=== PATIENT | male | born 1955 | race Caucasian/White ===

== ENCOUNTER 2023-07-31 11:16 | Emergency (ER) | payer MEDICARE, SELFPAY ==
[2023-07-31 11:20] VITALS: BP 152/70; PULSE 82; TEMP 36.6; O2SAT 96
--- NOTE | 2023-07-31 11:30 | PC.NURSE ---
pt denies injury, c/o right hip pain and reports is currently getting treated for this by PCP and Orthopedics. no redness, bruising or swelling to sight. Pain increases with movement and ambulation.
--- NOTE | 2023-07-31 11:40 | CT_ITS ---
The [address] [address] Patient Name: ERIN CALVERT MRN: [id number] date: 1955 Sex: M Assigned Patient Location: ER Current Patient Location: ED.MAIN Accession/Order Number: [id number] Exam Date: 07/31/2023 12:07 Report Date: 07/31/2023 13:11 At the request of: TRACI ELIZALDE Procedure: CT pelvis wo con EXAM: CT pelvis wo con HISTORY: Right hip pain. COMPARISON: None. TECHNIQUE: Routine CT pelvis without intravenous contrast. Dose reduction techniques were achieved by using automated exposure control and/or adjustment of mA and/or kV according to patient size and/or use of iterative reconstruction technique. FINDINGS: Nonobstructive bowel gas pattern with a moderate amount of stool within the colon. The appendix is not identified. The small bowel is unremarkable. There is no free air, free fluid or inflammatory reaction. Severe atheromatous calcifications distal abdominal aorta and the iliac, common femoral, femoral and profunda femoral arteries. The IVC is unremarkable. There are no pathologically enlarged lymph nodes. The unopacified urinary bladder is distended and otherwise unremarkable. The patient should urinate. There is mild to moderate enlargement of the prostate gland containing numerous coarse calcifications. There is a small amount of fat extending into the right inguinal canal. There is no muscular derangement. The bony alignment is anatomic. There is no fracture. There is no osseous destruction or periostitis. There are degenerative changes at both hip joints, moderate on the left and moderate on the right. There is no avascular necrosis. There is a lytic lesion suggesting a large Schmorl node along the superior endplate of the L5 vertebral body to the left of midline measuring 0.9 x 1.5 x 2.1 cm in longitudinal, transverse and AP dimensions. There is exuberant sclerosis surrounding this suggesting that this is chronic. A small Schmorl node is also seen along the left lateral aspect of the inferior endplate of the L4 vertebral body. There are mild discogenic degenerative changes at L4-5 and mild facet arthritis at L4-5 on the left. There is vacuum disc phenomenon at L4-5. There is a small focus of mineralization within the L5-S1 disc space. The sacrum, bilateral sacral joints and symphysis are unremarkable CT/CT pelvis wo con IMPRESSION: There is no acute process. The bowel gas pattern is nonobstructive with a moderate amount of stool within the colon. There is no free air, free fluid or inflammatory reaction within the peritoneal cavity. Severe atherosclerotic calcifications distal abdominal aorta and the iliac, common femoral, femoral and profunda femoral arteries bilaterally. There are no pathologically enlarged lymph nodes. The unopacified urinary bladder is distended and otherwise unremarkable. The patient should urinate. There is mild to moderate enlargement of the prostate gland. Correlate with the clinical examination and PSA level. There is no acute osseous abnormality. There is no fracture. There are degenerative changes at both hip joints, moderate on the left and moderate on the right. There is a lytic lesion suggesting a large Schmorl node along the superior endplate of the L5 vertebral body to the left of midline measuring 0.9 x 1.5 x 2.1 cm in longitudinal, transverse and AP dimensions. There is exuberant sclerosis surrounding this suggesting that this is chronic. A small Schmorl node is also seen along the inferior endplate of the L4 vertebral body. There are mild discogenic degenerative changes at L4-5. There is vacuum disc phenomenon at L4-5. Electronically authenticated by: DIMAS GUTIÉRREZ Date: 07/31/2023 13:11
--- NOTE | 2023-07-31 11:40 | ED.GENADUL1 ---
HPI HPI - General Adult General Chief complaint: Extremity Injury, Lower Stated complaint: rocky pain Time Seen by Provider: 07/31/23 11:22 Source: patient Mode of arrival: Wheelchair Limitations: no limitations History of Present Illness HPI narrative: The patient coming to the ER with a right hip pain that been going on at least for a month, he just finished prednisone pack at home that did not help, the patient denies any trauma or fall mentioned that the right hip pain is being evaluated by orthopedic and is going to get an MRI as outpatient. No other complaints Related Data Home Medications ?Medication ?Instructions ?Recorded ?Confirmed albuterol sulfate 90 mcg/actuation 2 puff inhalation Q4H PRN 07/31/23 07/31/23 aerosol inhaler shortness of breath or wheezing atorvastatin 40 mg tablet 40 mg PO DAILY 07/31/23 07/31/23 cilostazol 100 mg tablet 100 mg PO BID 07/31/23 07/31/23 hydrochlorothiazide 50 mg tablet 50 mg PO QAM 07/31/23 07/31/23 hydrocodone 7.5 mg-acetaminophen 1 tab PO Q6H PRN pain 07/31/23 07/31/23 325 mg tablet levothyroxine 175 mcg tablet 175 mcg PO QAM 07/31/23 07/31/23 (Synthroid) losartan 100 mg tablet 100 mg PO DAILY 07/31/23 07/31/23 terazosin 1 mg capsule 1 mg PO QPM 07/31/23 07/31/23 Previous Rx's ?Medication ?Instructions ?Recorded meloxicam 15 mg tablet 15 mg PO DAILY PRN pain #10 tabs 07/31/23 Allergies Allergy/AdvReac Type Severity Reaction Status Date / Time Sulfa (Sulfonamide Allergy Mild Rash Verified 07/31/23 11:20 Antibiotics) Opioid HPI Opioid Management Most Recent Opioid Data: No Data to Display Review of Systems ROS Status of ROS 10 or more systems reviewed and unremarkable except as noted in history and below Exam Narrative Exam Narrative: Nurses notes and vital signs reviewed and patient is not hypoxic. General: Well-appearing and in no apparent distress. Skin: Warm, dry, no pallor noted. No rash. Head: Normocephalic, atraumatic. Neck: Supple, non-tender. Eye: Pupils are equal, round and EOMI. No scleral icterus. Ears, Nose, Mouth, and Throat: TM are clear, no nasal mucosal hypertrophy. Oral mucosa is moist, no posterior oropharynx erythema, uvula is mid-line Cardiovascular: Regular Rate and Rhythm without murmur, gallop or rub. Respiratory: No accessory muscle use or respiratory distress. Lungs are clear to auscultation, no wheezing, rales or rhonchi Chest Wall: no tenderness Back: No midline thoracic or lumbar vertebral tenderness. No CVA tenderness Musculoskeletal: normal ROM, no calf or popliteal tenderness, no lower extremity edema/swelling, the patient have pain at the hip posteriorly GI: Abdomen is soft, non-distended. Normal bowel sounds. No masses appreciated. No tenderness to palpation. No rebound, guarding, or rigidity noted. Neurological: A&O x4. No cranial nerve dysfunction observed. No truncal ataxia. Moves all extremities. Sensation intact. Psychiatric: Cooperative and interactive. Normal mood and affect. Constitutional Vital Signs, click to edit/add: Last Vital Signs Temp 97.8 F 07/31/23 11:20 Pulse 64 07/31/23 12:51 Resp 16 07/31/23 12:51 BP 126/72 07/31/23 12:51 Pulse Ox 97 07/31/23 12:51 O2 Del Method Room Air 07/31/23 11:20 Course Vital Signs Vital signs: Vital Signs Temperature 97.8 F 07/31/23 11:20 Pulse Rate 82 07/31/23 11:20 Respiratory Rate 16 07/31/23 11:20 Blood Pressure 152/70 H 07/31/23 11:20 Pulse Oximetry 96 07/31/23 11:20 Oxygen Delivery Method Room Air 07/31/23 11:20 Temperature 97.8 F 07/31/23 11:20 Pulse Rate 64 07/31/23 12:51 Respiratory Rate 16 07/31/23 12:51 Blood Pressure 126/72 07/31/23 12:51 Pulse Oximetry 97 07/31/23 12:51 Oxygen Delivery Method Room Air 07/31/23 11:20 Medical Decision Making MDM Narrative Medical decision making narrative: The patient CT of the pelvis showed no acute significant pathology but it was noted that he have some lytic lesions in the lumbar spine that he was notified of that he need to follow-up with his primary care doctor for prostate check as outpatient The patient understands Patient was provided with Toradol in the ER discharged home with Doreen The patient is not taking any anticoagulant he mentioned that he was supposed to be on antiplatelet but he did not take it because he have allergy to it The patient is to follow up with primary care physician in next 2-3 days or to return to the emergency department should any of the signs or symptoms worsen or new symptoms develop. The patient agrees with the following Diagnosis and Treatment plan and the patient will be discharged home. Discharge Plan Discharge Stand Alone Forms: Portal Instructions Chief Complaint: Extremity Injury, Lower Clinical Impression: Acute hip pain Qualifiers: Laterality: right Qualified Code(s): M25.551 - Pain in right hip Patient Disposition: Home, Self-Care Time of Disposition Decision: 13:35 Condition: Good Mode of Transportation: Private Vehicle Prescriptions / Home Meds: New meloxicam 15 mg tablet 15 mg PO DAILY PRN (Reason: pain ) Qty: 10 0RF No Action cilostazol 100 mg tablet 100 mg PO BID atorvastatin 40 mg tablet 40 mg PO DAILY albuterol sulfate 90 mcg/actuation HFA aerosol inhaler 2 puff INHALATION Q4H PRN (Reason: shortness of breath or wheezing) hydrochlorothiazide 50 mg tablet 50 mg PO QAM hydrocodone-acetaminophen 7.5-325 mg tablet 1 tab PO Q6H PRN (Reason: pain) levothyroxine [Synthroid] 175 mcg tablet 175 mcg PO QAM losartan 100 mg tablet 100 mg PO DAILY terazosin 1 mg capsule 1 mg PO QPM Print Language: [place] Instructions: Hip Pain (ED) Referrals: Dick Boss MD [Primary Care Provider] - 1 week Discharge Date/Time: 07/31/23 13:50
[2023-07-31] MEDS: KETOROLAC TROMETHAMINE 30 MG/ML VIAL IM (11:49)
[2023-07-31] MEDS: OXYCODONE HCL/ACETAMINOPHEN 5MG/325MG 1 TAB PO (11:49)
[2023-07-31] MEDS: ORPHENADRINE 60 MG/ 2 ML VIAL IM (11:49)
[2023-07-31 12:00] VITALS: PULSE 72; O2SAT 97
[2023-07-31 12:51] VITALS: BP 126/72; PULSE 64; O2SAT 97
== END 2023-07-31 13:50 | disposition home or self-care (01) ==
PROVIDERS: Emergency Provider Emergency Medicine; PCP Family Medicine
DX: M25.551 Pain in right hip (principal)
CPT/HCPCS: 72192; 96372; 99284

== ENCOUNTER 2024-12-31 14:24 | Outpatient (OUT) | payer MEDICARE, SELFPAY ==
--- OUTSIDE RECORDS SUMMARY | 2024-12-31 14:48 | XMS_ITS | CCD ---
Author Organization [facility] Inform ion Partnership [facility] Care Team Providers Care Bunch Maker Name Role Phone Molly Ray Attending Unavailable Basia Vega Primary Care UnavailVika Collins Admitting Unavailable Vika Mcfarlane Attending Unavailable Shalom Driver Referring Unavailable Basia Vega Primary Care Unavailable MAXWELL WYNN Attending Unavailable MAXWELL WYNN Consulting Unavailable BASIA VEGA Primary Care Unavailable MAXWELL WYNN Admitting Unavailable MORGANBASIA SCANLON Admitting Unavailable BASIA VEGA Attending Unavailable BASIA VEGA Consulting Unavailable BASIA VEGA Primary Care Unavailable Basia Vega Primary Care Provider [phone] Rod Gonzalez Attending Provider Nakia Montez DO Unavailable Dick Miranda MD Primary Care Provider KASSIDY VILLASENOR Referring Unavailable DICK MIRANDA Primary Care Unavailable ODETTE BAPTISTE Admitting Unavailable ODETTE BAPTISTE Attending Unavailable ODETTE BAPTISTE Attending Unavailable ODETTE BAPTISTE Referring Unavailable DICK MIRANDA Primary Care Unavailable Basia Vega Primary Care Provider [phone] Dick Miranda Primary Care Provider [phone] HUGH CRAIG Attending Unavailable HUGH CRAIG Admitting Unavailable DICK MIRANDA Primary Care Unavailable Lo Hancock MD Unavailable [phone] Gerald Abdi MD Unavailable Olegario Moreira MD Unavailable Lo Hancock MD Unavailable Lenny LEE.SACK CLEANING HAND, Michelle Unavailable [phone] Aviva THEODORE, Noemy Unavailable Rickie RIOS, Steffany Unavailable Unavailable Trinidad LAGUNAS, Gerald Unavailable Joseph LAGUNAS, Olegario Unavailable Renee THEODORE, Crystal Unavailable [phone] Joseph LAGUNAS, Olegario Unavailable Dick Miranda MD Primary Care Provider [phone] [facility] WOOL SHEARER.SACK CLEANING HAND, Joey Romero Unavailable Grady THEODORE, Anna Aguiar Unavailable Unavail able Nakia Montez DO Unavailable Karyn LAGUNAS, Dick Primary Care Provider Nakia Montez DO Primary Care Provider Karyn LAGUNAS, Dick Primary Care Provider Joseph LAGUNAS, Olegario Unavailable Nakia Montez DO Unavailable Trinidad LAGUNAS, Angulo Unavailable Dick Miranda MD Unavailable OLEGARIO MOREIRA Attending Unavailable NAKIA MONTEZ G Referring Unavailable NADERER, DICK Primary Care Unavailable ESTEFANY LANG Attending Unavailable KASSIDY VILLASENOR Referring Unavailable NADERER, DICK Primary Care Unavailable OLEGARIO MOREIRA Attending Unavailable NADERER, DICK Referring Unavailable NADERER, DICK Primary Care Unavailable BINA GRIFFIN Attending Unavailable NADERER, DICK Referring Unavailable NADERER, DICK Primary Care Unavailable BINA GRIFFIN Attending Unavailable NADERER, DICK Referring Unavailable NADERER, DICK Primary Care Unavailable Karyn LAGUNAS, Dick Primary Care Provider Renee THEODORE, Crystal Unavailable Dick Miranda MD Primary Care Provider GERALD ABDI Attending Unavailable KASSIDY VILLASENOR Referring Unavailable NADERER, DICK Primary Care Unavailable GERALD ABDI Attending Unavailable TRINIDAD, ANGULO N Referring Unavailable NADERER, DICK Primary Care Unavailable TRINIDAD, ANGULO N Referring Unavailable NADERER, DICK Primary Care Unavailable TRINIDAD, ANGULO N Attending Unavailable NADERER, DICK Referring Unavailable NADERER, DICK Primary Care Unavailable WUDEL JR, SAVANAH Referring Unavailable NADERER, DICK Primary Care Unavailable WUDEL JR, SAVANAH Referring Unavailable NADERER, DICK Primary Care Unavailable WUDEL JR, SAVNAAH Referring Unavailable NADERER, DICK Primary Care Unavailable WUDEL JR, SAVANAH Referring Unavailable NADERER, DICK Primary Care Unavailable WUDEL JR, SAVANAH Referring Unavailable NADERER, DICK Primary Care Unavailable NADERER, DICK Referring Unavailable NADERER, DICK Primary Care Unavailable GARY OWEN Attending Unavailable AFRIDI, OLEGARIO Moreno Referring Unavailable NADERER, DICK Primary Care Unavailable AFRIDI, OLEGARIO Moreno Attending Unavailable AFRIDI, OLEGARIO G Referring Unavailable NADERER, DICK Primary Care Unavailable NADERER, DICK Primary Care Unavailable EVELYN PAZ Attending Unavailable NEHA GARCIA Attending Unavailable NADERER, DICK Referring Unavailable NADERER, DICK Primary Care Unavailable Basia Vega MD Primary Care Provider Romario MATERIAL EXPEDITER-C, Melinda Lopez Attending Provider Dick Miranda MD Primary Care Provider Don LAGUNAS, Wendy Erickson Emergency Provider [phone] Clarence Stevens DO Admit Provider Clarence Stevens DO Attending Provider Clarence Stevens DO Other Provider Enoc Barron MD Attending Provider Enoc Barron MD Other Provider Clarence Stevens Attending Unavailable Clarence Stevens Admitting Unavailable Enoc Barron Consulting Unavailable Naderer, Dick Primary Care Unavailable Lo Hancock MD, V Attending Provider Dick Miranda MD Attending Provider NADALEX, DICK Attending Unavailable ROBERT KING Attending Unavailable ROBERT KING Attending Unavailable SUSAN CLAUDIO Attending Unavailable ABHYANKAR, LO Referring Unavailable ZION, ARLEY Referring Unavailable VERÓNICA DUMONT Attending Unavailable SAPORITA, SERGIO L Referring Unavailable BRINK, ANMOL Attending Unavailable SAPORITA, SERGIO L Referring Unavailable KELBLEY, NILDA Attending Unavailable SAPORITA, SERGIO L Referring Unavailable SONIA, ARNULFO Attending Unavailable SAPORITA, SERGIO L Referring Unavailable SONIA, ARNULFO Attending Unavailable SAPORITA, SERGIO L Referring Unavailable SONIA, ARNULFO Attending Unavailable SAPORITA, SERGIO L Referring Unavailable NADERER, DICK Attending Unavailable KELBLEY, NILDA Attending Unavailable SAPORITA, SERGIO L Referring Unavailable BRINK, ANMOL Attending Unavailable SAPORITA, SERGIO L Referring Unavailable MARANDAJOS Referring Unavailable NADERER, DICK Attending Unavailable SKYLER, ERIN Dietz Attending Unavailable NADERER, DICK Attending Unavailable KINGROBERT Attending Unavailable ABHYANKAR, LO Referring Unavailable NADERER, DICK A Primary Care Unavailable ABHYANKAR, LO Referring Unavailable NADERER, DICK A Primary Care Unavailable RHEA GODDARD Attending Unavailabl e ABHYANKAR, LO Referring Unavailable NADERER, DICK A Primary Care Unavailable BUNDRIDJOEY JAVIER Attending Unavailabl e NADERER, DICK A Primary Care Unavailable NADERER, DICK A Primary Care Unavailable BUNDRIDJOEY JAVIER Attending Unavailabl e BUNDJOEY DWYER Referring Unavailabl e NADERER, DICK A Primary Care Unavailable DE, JACK Attending Unavailable NADERER, DICK A Primary Care Unavailable ABHYANKAR, LO Referring Unavailable NADERER, DICK A Primary Care Unavailable ABHYANKAR, LO Attending Unavailable ABHYANKAR, LO Referring Unavailable NADERER, DICK A Primary Care Unavailable DE, JACK Attending Unavailable NADERER, DICK A Primary Care Unavailable DE, JACK Attending Unavailable DE, JACK Referring Unavailable NADERER, DICK A Primary Care Unavailable DE, JACK Referring Unavailable NADERER, DICK A Primary Care Unavailable DE, JACK Attending Unavailable DE, JACK Referring Unavailable NADERER, DICK A Primary Care Unavailable ABHYANKAR, LO Referring Unavailable NADERER, DICK A Primary Care Unavailable ABHYANKAR, LO Attending Unavailable ABHYANKAR, LO Referring Unavailable NADERER, DICK A Primary Care Unavailable BUNDRIDJOEY JAVIER Attending Unavailabl e ABHYANKAR, LO Referring Unavailable NADERER, DICK A Primary Care Unavailable ABHYANKAR, LO Referring Unavailable NADERER, DICK A Primary Care Unavailable MICHELLE MEJIA Attending Unavailable ABHYANKAR, LO Referring Unavailable NADERER, DICK A Primary Care Unavailable ABHYANKAR, LO Referring Unavailable NADERER, DICK A Primary Care Unavailable ABHYANKAR, LO Attending Unavailable ABHYANKAR, LO Referring Unavailable NADERER, DICK A Primary Care Unavailable DE, JCAK Attending Unavailable NADERER, DICK A Primary Care Unavailable BETTYPRESTON KEE Attending Unavailable NADERER, DICK A Primary Care Unavailable NADERER, DICK A Primary Care Unavailable ABHYANKAR, LO Referring Unavailable NADERER, DICK A Primary Care Unavailable ABHYANKAR, LO Referring Unavailable NADERER, DICK A Primary Care Unavailable SAVANAH OREILLY Attending Unavailable ABHYANKAR, LO Referring Unavailable NADERER, DICK A Primary Care Unavailable NADERER, DICK A Primary Care Unavailable ABHYANKAR, LO Attending Unavailable ABHYANKAR, LO Referring Unavailable NADERER, DICK A Primary Care Unavailable DE, JACK Attending Unavailable ABHYANKAR, LO Referring Unavailable NADERER, DICK A Primary Care Unavailable DE, JACK Attending Unavailable DE, JACK Referring Unavailable NADERER, DICK A Primary Care Unavailable DE, JACK Attending Unavailable NADERER, DICK A Primary Care Unavailable DE, JACK Attending Unavailable ABHYANKAR, LO Referring Unavailable NADERER, DICK A Primary Care Unavailable ABHYANKAR, LO Referring Unavailable NADERER, DICK A Primary Care Unavailable DE, JACK Attending Unavailable NADERER, DICK A Primary Care Unavailable NADERER, DICK A Primary Care Unavailable ABHYANKAR, LO Attending Unavailable ABHYANKAR, LO Referring Unavailable NADERER, DICK A Primary Care Unavailable ABHYANKAR, LO Attending Unavailable ABHYANKAR, LO Referring Unavailable NADERER, DICK A Primary Care Unavailable ABHYANKAR, LO Referring Unavailable NADERER, DICK A Primary Care Unavailable ABHYANKAR, LO Referring Unavailable NADERER, DICK A Primary Care Unavailable ABHYANKAR, LO Referring Unavailable NADERER, DICK A Primary Care Unavailable MICHELLE MEJIA Attending Unavailable ABHYANKAR, LO Referring Unavailable NADERER, DICK A Primary Care Unavailable JOEY SCOTT Attending Unavailabl e ABHYANKAR, LO Referring Unavailable NADERER, DICK A Primary Care Unavailable ABHYANKAR, LO Referring Unavailable NADERER, DICK A Primary Care Unavailable DE, JACK Attending Unavailable DE, JACK Referring Unavailable NADERER, DICK A Primary Care Unavailable DE, JACK Attending Unavailable DE, JACK Referring Unavailable NADERER, DICK A Primary Care Unavailable ABHYANKAR, LO Referring Unavailable NADERER, DICK A Primary Care Unavailable NADERER, DICK A Primary Care Unavailable MICHELLE MEJIA Referring Unavailable NADERER, DICK A Primary Care Unavailable DE, JACK Attending Unavailable DE, JACK Referring Unavailable NADERER, DICK A Primary Care Unavailable DE, JACK Attending Unavailable ABHYANKAR, LO Referring Unavailable NADERER, DICK A Primary Care Unavailable ABHYANKAR, LO Referring Unavailable NADERER, DICK A Primary Care Unavailable DE, JACK Attending Unavailable DE, JACK Referring Unavailable NADERER, DICK A Primary Care Unavailable ABHYANKAR, LO Referring Unavailable NADERER, DICK A Primary Care Unavailable PRESTON HERNÁNDEZ Attending Unavailable NADERER, DICK A Primary Care Unavailable Unavailable Unavailable Unavailable Allergies Allergy ClassificationReported Allergen(s)Allergy TypeDate of OnsetReaction(s) Facility (1 source)Sulfonamides (Antibiotic)Drug allergy (disorder)[id number] ([facility] sources)Sulfonamides (Antibiotic)Drug Liscotm32-14-4536UosnqfrSaint [facility] (8 sources)Sulfonamides (Antibiotic); Translations: [SULFA (SULFONAMIDE ANTIBIOTICS)]Propensity to adverse reactions to drug (disorder)10-15-2011 unknown; childhood allergyPro[facility]ica Rep[facility] (20 sources)tiotropiumDrug Cbjeavo83-44-3466Lnwyqrefe of [facility] Work Phone: (20 sources)gabapentin; Translations: [GABAPENTIN]Drug Afczcmy75-78-8478[facility] (2 sources)tiotropiumDrug Gtxnrma85-09-9512ZewolbxThe [facility] Medications Current Medications MedicationDrug Class(es)DatesSig (Normalized)Sig (Original)acetaminophen 325 mg / HYDROcodone bitartrate 7.5 mg oral tablet (20 sources)Opioid AgonistStart: 11-86-3846msqp 1 tablet by mouth every six hours as neededHydrocodone-Acetaminophen 7.5-325 mg tablet Active 1 TAB PO Twice daily as needed for pain October 27, 2024 12:00am FreeTextSig: (Schedule II Drug) TAKE 1 TABLET BY MOUTH EVERY 6 HOURS NEEDED Oral; Note: Source Status: Taking; Refills: 0; Qty: 30 Unspecified; Provider: MORGAN FLOR Complies with drug therapyStart: 09-19-2024 End: 16-43-7676cxem 1 tablet by mouth four times daily as needed for pain HYDROcodone-acetaminophen ([place]) 7.5-325 MG tablet Indications: DDD (degenerative disc disease), cervical Take 1 tablet by mouth 4 (four) times a day as needed for severe pain for up to 23 days 90 tablet 09/19/2024 10/17/2024 ActiveStart: 08-08-2024 End: 34-89-3640hbtv 1 tablet by mouth four times daily as needed for pain HYDROcodone-acetaminophen ([place]) 7.5-325 MG tablet Indications: DDD (degenerative disc disease), cervical Take 1 tablet by mouth 4 (four) times a day as needed for severe pain for up to 23 days 90 tablet 08/08/2024 08/31/2024 ActiveStart: 06-26-2024 End: 47-51-1253kzta 1 tablet by mouth four times daily as needed for pain HYDROcodone-acetaminophen ([place]) 7.5-325 MG tablet Indications: DDD (degenerative disc disease), cervical Take 1 tablet by mouth 4 (four) times a day as needed for severe pain for up to 23 days 90 tablet 06/26/2024 07/19/2024 ActiveStart: 05-14-2024 End: 46-05-1826qqpg 1 tablet by mouth four times daily as needed for pain HYDROcodone-acetaminophen ([place]) 7.5-325 MG tablet Indications: DDD (degenerative disc disease), cervical Take 1 tablet by mouth 4 (four) times a day as needed for severe pain for up to 23 days 90 tablet 05/14/2024 06/06/2024 ActiveStart: 04-02-2024 End: 89-85-6180tsrv 1 tablet by mouth four times daily as needed for pain HYDROcodone-acetaminophen ([place]) 7.5-325 MG tablet Indications: DDD (degenerative disc disease), cervical Take 1 tablet by mouth 4 (four) times a day as needed for severe pain for up to 23 days 90 tablet 04/02/2024 04/25/2024 ActiveStart: 02-20-2024 End: 19-34-9482wegc 1 tablet by mouth four times daily as needed for pain HYDROcodone-acetaminophen ([place]) 7.5-325 MG tablet Indications: DDD (degenerative disc disease), cervical Take 1 tablet by mouth 4 (four) times a day as needed for severe pain for up to 23 days 90 tablet 02/20/2024 03/14/2024 ActiveStart: 12-19-2023 End: 69-09-1937wqzq 1 tablet by mouth four times daily as needed for pain HYDROcodone-acetaminophen ([place]) 7.5-325 MG tablet Indications: DDD (degenerative disc disease), cervical Take 1 tablet by mouth 4 (four) times a day as needed for severe pain for up to 23 days 90 tablet 01/17/2024 02/09/2024 ActiveStart: 11-18-2023 End: 94-17-5827bwpd 1 tablet by mouth four times daily as needed for pain HYDROcodone-acetaminophen ([place]) 7.5-325 MG tablet Indications: DDD (degenerative disc disease), cervical Take 1 tablet by mouth 4 (four) times a day as needed for severe pain for up to 23 days 90 tablet 11/18/2023 12/11/2023 ActiveStart: 10-28-2023 End: 72-36-7434oyfj 1 tablet by mouth four times daily as needed for pain HYDROcodone-acetaminophen ([place]) 7.5-325 MG tablet Indications: DDD (degenerative disc disease), cervical Take 1 tablet by mouth 4 (four) times a day as needed for severe pain for up to 7 days 28 tablet 10/28/2023 11/04/2023 ActiveStart: 11-02-2019 End: 87-57-3715utgg 1 tablet by mouth every six hours as needed for pain Hydrocodone-Acetaminophen 7.5-325 mg tablet Discontinued 1 TAB PO Q6H as needed for Pain November 02, 2019 12:00am November 08, 2019 8:03amtake 1 tablet by mouth every six hours as needed for painHYDROcodone-acetaminophen (XODOL) 7.5- 300 mg per tablet Take 1 tablet by mouth every 6 (six) hours as needed for pain. Active End: 60-87-9546ivwt 1 tablet by mouth every six hours as neededhydrocodone- acetaminophen ES (VICODIN ES) 7.5-750 mg per tablet Take 1 tablet by mouth every 6 hours as needed. Takes one half to one daily, may take total of one and one half pills IF needed in one day 10/26/2023 Discontinuedtake 1 tablet by mouth every six hours as needed for painHYDROcodone-acetaminophen ([place]) 5-325 mg per tablet Take 1 tablet by mouth every 6 (six) hours asneeded for pain. Active [id number] 200 actuat albuterol 0.09 mg/actuat metered dose inhaler (20 sources)beta2-Adrenergic AgonistStart: 11-21-2024 End: 29-48-6081sggd 1 puff(s) by inhalation every six hours as needed for wheezingAlbuterol Sulfate 90 mcg/actuation HFA aerosol inhaler Active 2 PUFF INHALATION Every 6 hours as needed for shortness of breath or wheezing 8.5 December 03, 2024 2:10pm Complies with drug therapyStart: 64-35-2851nfmh 2 puff(s) by inhalation every six hours as neededalbuterol HFA (PROVENTIL HFA, VENTOLIN HFA) 90 mcg/actuation inhaler Inhale 2 Puffs as instructed every 6 hours as needed. 10/20/2023 ActiveStart: 06-09-1125oswr 2 puff(s) by inhalation every six hoursalbuterol HFA 90 mcg/act inhaler Inhale 2 puffs every 6 (six) hours if needed 10/20/2023 ActiveStart: 70-44-5826imva 2 puff(s) by inhalation every six hours as needed for wheezingalbuterol (PROVENTIL HFA;VENTOLIN HFA) 90 mcg/actuation inhaler Indications: Chronic obstructive pulmonary disease, unspecified COPD type ([facility]) Inhale 2 puffs every 6 (six) hours as needed for wheezing. 18 g 11 10/20/2023 ActiveamLODIPine 10 mg oral tablet (20 sources)Dihydropyridine Calcium Channel BlockerStart: 21-81-4391cwqy 1 tablet by mouth once dailyAmlodipine 10 mg tablet Active 10 MG PO Daily October 27, 2024 12:00am Complies with drug therapyascorbic acid 500 mg oral tablet (20 sources)Vitamin CStart: 65-15-3109gpoo 1 tablet by mouth once dailyAscorbic Acid (Vitamin C) (Vitamin C) 500 mg Tablet Active 500 MG PO Daily November 02, 2019 12:00am Complies with drug therapytake 1 tablet by mouth in the morning ascorbic acid (Vitamin C) 500 MG tablet Take 500 mg by mouth in the morning. Activeaspirin 81 mg oral tablet (20 sources)Platelet Aggregation Inhibitor, Nonsteroidal Anti-inflammatory Drug Start: 55-64-4680majh 1 tablet by mouth once dailyAspirin 81 mg tablet Active 81 MG PO Daily October 27, 2024 12:00am Complies with drug therapyStart: 86-11-5436lnrt 1 tablet by mouth in the morningaspirin 81 mg Indications: Essential hypertension , Bilateral carotid artery stenosis , Occlusive disease, arterial TAKE 1 TABLET (81 MG TOTAL) BY MOUTH IN THE MORNING 90 tablet 1 04/16/2024 ActiveStart: 60-35-0372tjdx 1 tablet by mouth in the morningaspirin 81 mg Indications: Essential hypertension , Bilateral carotid artery stenosis , Occlusive disease, arterial TAKE 1 TABLET (81 MG TOTAL) BY MOUTH IN THE MORNING 90 tablet 1 10/25/2023 ActiveStart: 09-30-2023 End: 34-00-1672xsuo 1 tablet by mouth in the morningaspirin 81 mg Indications: Essential hypertension , Bilateral carotid artery stenosis , Occlusive disease, arterial TAKE 1 TABLET (81 MG TOTAL) BY MOUTH IN THE MORNING 90 tablet 1 10/25/2023 Activeatorvastatin 40 mg oral tablet (20 sources)HMG-CoA Reductase InhibitorStart: 03-36-5565kwuq 1 tablet by mouth once dailyAtorvastatin 40 mg tablet Active 40 MG PO Daily November 02, 2019 12:00am Complies with drug therapybetamethasone 0.5 mg/ml topical cream (2 sources)CorticosteroidStart: 09-20-2022 End: 84-73-4108huzsdagekoyzb dipropionate 0.05 % cream Indications: Prurigo nodularis Apply to affected area on hand twice a day prn itching 45 g 11 09/20/2022 04/20/2023 Discontinuedcetirizine hydrochloride 10 mg oral tablet (20 sources)Histamine-1 Receptor Antagonisttake 1 tablet by mouth in the morning cetirizine (ZyrTEC) 10 mg tablet Take 1 tablet (10 mg total) by mouth in the morning. Active End: 50-62-8187yrcn 1 capsule by mouth once dailyCetirizine 10 mg cap Take 10 mg by mouth once daily. 07/20/2024 Discontinued (Discontinued by Patient) cholecalciferol 0.025 mg oral tablet (20 sources)Vitamin DStart: 23-45-8569asuohovipdcjmip (VITAMIN D3) 1,000 unit tab tablet Take 1,000 Units by mouth. 10/06/2023 ActiveStart: 16-40-3039ddoy 1 tablet by mouth in the morningcholecalciferol (Vitamin D-3) 25 MCG (1000 UT) tablet Take 500 Units by mouth in the morning. 10/06/2023 ActiveStart: 10-06-2023 End: 41-49-9614umfa 1 tablet by mouth once dailycholecalciferol (VITAMIN D3) 1,000 unit tab tablet Take 1,000 Units by mouth once daily. Discontinued (Discontinued by another Health Care Provider)Start: 03-21-2020 End: 34-96-1423eqsv 1 tablet by mouth once dailyCholecalciferol (Vitamin D3) (Vitamin D3) 25 mcg (1,000 unit) Tablet,Chewable Discontinued 1000 UNIT PO Daily March 21, 2020 1:00am October 27, 2024 6:15pmcilostazol 100 mg oral tablet (1 source)Phosphodiesterase 3 InhibitorStart: 68-05-6905nmxj 1 tablet by mouth in the morning, then take 1 tablet by mouth at bedtimecilostazoL (PLETAL) 100 mg tablet Indications: Right internal carotid occlusion , Occlusive disease, arterial Take 1 tablet (100 mg total) by mouth in the morning and 1 tablet (100 mg total) before bedtime. 90 tablet 5 06/27/2023 Activeclopidogrel 75 mg oral tablet (20 sources)P2Y12 Platelet InhibitorStart: 10-27-2024 End: 81-88-3655rdic 1 tablet by mouth once dailyStart: 17-34-8920ucfn 1 tablet by mouth once daily in the morningclopidogreL (PLAVIX) 75 mg tablet Indications: Essential hypertension , Bilateral carotid artery stenosis , Occlusive disease, arterial TAKE 1 TABLET BY MOUTH EVERY DAY IN THE MORNING 90 tablet 1 10/10/2024 ActiveStart: 03-06-2024 End: 82-21-7732itjd 1 tablet by mouth once daily in the morningclopidogreL (PLAVIX) 75 mg tablet Indications: Essential hypertension , Bilateral carotid artery stenosis , Occlusive disease, arterial TAKE 1 TABLET BY MOUTH EVERY DAY IN THE MORNING 90 tablet 1 03/06/2024 10/10/2024 DiscontinuedStart: 10-25-2023 take 1 tablet by mouth once daily in the morningclopidogreL (PLAVIX) 75 mg tablet Indications: Essential hypertension , Bilateral carotid artery stenosis , Occlusive disease, arterial TAKE 1 TABLET BY MOUTH EVERY DAY IN THE MORNING 90 tablet 1 10/25/2023 ActiveStart: 09-30-2023 End: 79-70-3254srqd 1 tablet by mouth once daily in the morningclopidogreL (PLAVIX) 75 mg tablet Indications: Essential hypertension , Bilateral carotid artery stenosis , Occlusive disease, arterial TAKE 1 TABLET BY MOUTH EVERY DAY IN THE MORNING 90 tablet 1 10/25/2023 ActiveCYANOCOBALAMIN, VITAMIN B-12, (VITAMIN B-12 ORAL) (19 sources)CYANOCOBALAMIN, VITAMIN B-12, (VITAMIN B-12 ORAL) Take by mouth. ActiveCYANOCOBALAMIN, VITAMIN B-12, (VITAMIN B-12 ORAL) Take by mouth. 0 Active diazePAM 5 mg oral tablet (20 sources)BenzodiazepineStart: 01-94-1607kwoz 1 tablet by mouth three times daily as neededDiazepam 5 mg tablet Active 5 MG PO Three times daily as needed November 21, 2024 12:00am Complies with drug therapyStart: 10-12-2023 End: 03-52-3208izza 1 tablet by mouth three times daily as needed for anxiety diazePAM (Valium) 5 MG tablet Indications: KIKO (generalized anxiety disorder) Take 1 tablet (5 mg) by mouth 3 (three) times a day as needed for anxiety 90 tablet 06/05/2024 ActiveStart: 11-02-2019 End: 94-90-0764kvxg 1 tablet by mouth every six hours as needed for muscle spasmsDiazepam 5 mg Tablet Discontinued 5 MG PO Q6H as needed for Spasms November 02, 2019 12:00am November 08, 2019 8:03amdocusate sodium 100 mg oral capsule (5 sources)Start: 98-74-1136xqvy 1 capsule by mouth twice daily as needed for constipationDocusate Sodium 100 mg Capsule Active 100 MG PO Twice daily as needed for Constipation 30 10 2024 12:00am Complies with drug therapytake 1 tablet by mouth twice dailyDocusate Sodium 100 mg tab Take 100 mg by mouth two times a day. Activedoxepin hydrochloride 75 mg oral capsule (8 sources)Tricyclic AntidepressantStart: 31-04-4019prxh 1 capsule by mouth once daily at bedtimeDoxepin 75 mg capsule Active 75 MG PO Daily at bedtime November 21, 2024 12:00am Complies with drug therapyStart: 10-97-8245razy 1 capsule by mouth at bedtimedoxepin (SINEquan) 75 MG capsule Indications: Primary insomnia Take 1 capsule (75 mg) by mouth at bedtime 30 capsule 3 10/17/2024 Activefexofenadine hydrochloride 180 mg oral tablet (20 sources)Histamine-1 Receptor AntagonistStart: 37-29-2776zdzk 1 tablet by mouth once dailyFexofenadine 180 mg tablet Active 180 MG PO Daily November 21, 2024 12:00am Complies with drug therapyfexofenadine HCl (ITZEL ORAL) Take 180 mg by mouth. Activegabapentin 100 mg oral capsule (20 sources)Anti-epileptic AgentStart: 12-23-2023 End: 07-57-0212frje 2 capsules by mouth once daily at bedtimegabapentin (NEURONTIN) 100 mg capsule Take 2 capsules by mouth daily at bedtime for 60 days. 30 capsule 1 12/23/2023 12/28/2023 DiscontinuedStart: 11-29-2023 End: 64-09-2484whny 1 capsule by mouth once daily at bedtime, then take 1 capsule by mouth once dailygabapentin (NEURONTIN) 100 mg capsule Take 1 capsule (100 mg total) by mouth once daily at bedtime.Pt is only taking one tablet a day. 12/26/2023 ActiveStart: 03-21-2020 End: 06-47-2260exhh 1 capsule by mouth three times dailyGabapentin 300 mg capsule Discontinued 300 MG PO Three times daily March 21, 2020 1:00am 2024 6:16pmStart: 30-49-6548bkmfyrwpsc (NEURONTIN) 100 mg capsule Indications: Tension headache Week 1: one capsule po at night; Week 2: one capsule bid; Week 3: one capsule three time daily, and continue. 90 capsule 6 07/20/2018 Activeglucosamine 500 mg oral tablet (20 sources)take 1 tablet by mouth once dailyGlucosamine HCl 500 mg tab Take 1 tablet by mouth once daily. ActiveGlucosamine 750 MG tablet Take by mouth Daily ActivehydroCHLOROthiazide 25 mg / losartan potassium 100 mg oral tablet (3 sources)Thiazide Diuretic, Angiotensin 2 Receptor Blockertake 1 tablet by mouth once in the morninglosartan-hydroCHLOROthiazide (HYZAAR) 100-25 mg per tablet Take 1 tablet by mouth in the morning. Losartan 100mg hydrochlorithiazide 50mg takes daily . Active End: 88-78-8009rnis 1 tablet by mouth in the morninglosartan-hydroCHLOROthiazide (Hyzaar) 100-25 MG tablet Take 1 tablet by mouth in the morning. 0 04/20/2023 Discontinuedibuprofen 600 mg oral tablet (3 sources)Nonsteroidal Anti-inflammatory DrugStart: 45-47-9966Wadqkhlsl 600 mg tablet Active 600 MG PO every 6 to 8 hours as needed for pain October 292:00am Complies with drug therapyketoconazole 10 mg/ml medicated shampoo (20 sources)Azole AntifungalStart: 98-12-4601Qlkllcuizjei 1 % shampoo Active 1 APPLIC TOPICAL Twice a Week November 21, 2024 12:00am Complieswith drug therapyStart: 09-64-5573Pitugazoppsy (Nizoral) 1 % shampoo Indications: Seborrheic dermatitis Apply 1 Application topically2 (two) times a week 200 mL 3 04/19/2024 ActiveKetoconazole (Nizoral) 1 % shampoo (8 sources)Start: 21-91-9124Ijofbuegbyzk (Nizoral) 1 % shampoo Indications: Seborrheic dermatitis Apply 1 Application topically2 (two) times a week 200 mL 3 04/19/2024 Activekrill oil 500 mg oral capsule (20 sources)Start: 83-38-1297zkpd 1 capsule by mouth once dailyKrill Oil 500 mg capsule Active 500 MG PO Daily November 21, 2024 12:00am Complies with drug therapytake 1 capsule by mouth once dailykrill oil 500 mg cap Take 1 capsule by mouth once daily. Activeloratadine 10 mg oral tablet (3 sources) End: 11-36-1225pybt 1 tablet by mouth once dailyloratadine (CLARITIN) 10 mg tablet Take 10 mg by mouth daily. Activemeloxicam 7.5 mg oral tablet (20 sources)Nonsteroidal Anti-inflammatory DrugStart: 10-10-2024 End: 89-52-1618zmdi 1 tablet by mouth once daily at bedtimeMeloxicam 7.5 mg tablet Active 7.5 MG PO Daily at bedtime October 27, 2024 12:00am Complies with drug therapyStart: 10-12-2023 End: 05-42-8430waot 1 tablet by mouth once dailymeloxicam (MOBIC) 7.5 mg tablet Take 1 tablet by mouth once daily. 10/12/2023 12/23/2023 DiscontinuedMELOXICAM ORAL Take by mouth. ActivemetFORMIN hydrochloride 850 mg oral tablet (20 sources)BiguanideStart: 11-53-0417mtim 1 tablet by mouth once dailyMetformin 850 mg tablet Active 850 MG PO Daily October 27, 2024 12:00am Complies with drug therapyStart: 12-20-2022 End: 50-21-5760nskl 1 tablet by mouth once daily at breakfastmetFORMIN (GLUCOPHAGE) 850 mg tablet Take 850 mg by mouth daily with breakfast. 10/02/2023 Hdmyeh49/70 release 24 hr methylphenidate hydrochloride 10 mg extended release oral capsule (20 sources)Central Nervous System StimulantStart: 63-70-6316Hmzmbvidjadyoki Hcl 10 mg capsule, ER biphasic 30-70 Active 10 MG PO Every morning November 21, 2024 12:00am Complies with drug therapyStart: 12-28-2023 End: 51-93-3435yqwg 1 tablet by mouth twice dailymethylphenidate (RITALIN) 10 mg tablet Indications: Malaise and fatigue , Attention deficit hyperactivity disorder (ADHD), combined type Take 1 tablet by mouth two times a day for 30 days. 60 tablet 07/09/2024 ActiveStart: 10-21-2014 End: 60-59-2084xpipwsylentvpcx (RITALIN) 10 mg tablet Take 1 tablet as needed by oral route. 10/21/2014 10/26/2023iscontinuedStart: 05-17-2014 End: 64-20-4882swxa 1 tablet by mouth in the morningmethylphenidate (RITALIN) 5 mg tablet Take 1 tablet(s) in AM and at 1 PM by oral route. 05/17/2014 0 10/26/2023 Discontinuedtake 1 capsule by mouth once daily in the morning methylphenidate CD (Metadate CD) 10 MG daily capsule Take 10 mg by mouth in the morning. Do not crush or chew.. ActivemethylPREDNISolone (16 sources)CorticosteroidStart: 11-06-2024 End: 92-02-1640viylllYQKHPTFlbchd (MEDROL, ZACH,) 4 mg Dose-Pack Take as instructed per package. 21 tablet 11/06/2024 11/12/2024 ActiveStart: 04-23-2024 End: 20-69-4041wmvohtLIOXSUAwwwxr acetate (DEPO-Medrol) injection 40 mgStart: 04-23-2024 End: 74-20-284948 mg, Intra-articular, Once PRN Procedure, Starting on Tue04/23/24 at 1510, For 1 doseStart: 03-08-2024 End: 87-65-4266iflzlyHYSTRRHjpjep acetate (DEPO-Medrol) injection 40 mgStart: 03-08-2024 End: 56-97-303575 mg, Intra-articular, Once PRN Procedure, Starting on [place] 03/08/24 at 1235, For 1 dosemetroNIDAZOLE 7.5 mg/ml topical lotion (2 sources)Nitroimidazole AntimicrobialStart: 02-24-2023 End: 23-24-2412ljmxxCGEOMXOC (Metrolotion) 0.75 % lotion lotion Indications: Other rosacea Apply thin layer to face, once daily, 30 day supply 59 mL 11 02/24/2023 04/20/2023 Discontinuedminocycline 50 mg oral capsule (2 sources)Tetracycline-class DrugStart: 12-20-2022 End: 08-49-4411lrwa 1 capsule by mouth twice dailyminocycline 50 MG capsule Indications: Other rosacea Take 1 capsule by mouth, twice daily, 30 days 60 capsule 11 12/20/2022 04/20/2023 DiscontinuedMultiple Vitamin (Multi-Vitamin) tablet (20 sources)take 1 tablet by mouth in the morningMultiple Vitamin (Multi- Vitamin) tablet Take 1 tablet by mouth in the morning. Activetake 1 tablet by mouth in the morningMultiple Vitamin (Multi-Vitamin) tablet Take 1 tablet by mouth in the morning. 0 IpuabtCmauubhj-Ctq-Xo-Lycopen-Lutein (Men 50 Plus Multivitamin) 300-600-300 mcg Tablet (1 source)Start: 82-79-9748tezu 50-300 tablets by mouth once daily Ylyqppuv-Uwa-Yl-Lycopen-Lutein (Men 50 Plus Multivitamin) 300-600-300 mcg Tablet Active 1 TAB PO Daily November 02, 2019 1:54pmmultivit-minerals/ferrous fum (MULTI VITAMIN ORAL) (16 sources)multivit-minerals/ferrous fum (MULTI VITAMIN ORAL) Take by mouth. d3 100u and e 180 daily Activemultivitamin tablet (20 sources)take 1 tablet by mouth once dailymultivitamin tablet Take 1 tablet by mouth once daily. Activetake 1 tablet by mouth once dailymultivitamin tablet Take 1 tablet by mouth once daily. 0 IsmqtrLk-Clj-Jxdpv-N1-Xtmblov-Pbgjty (Men 50 Plus Multivitamin) 300-600-300 mcg Tablet (4 sources)Start: 44-92-4206wwnv 50-300 tablets by mouth once dailyStart: 44-27-3294bqmy 50-300 tablets by mouth once cdskvEw-Utt-Fvqby-E6-Ajttvah-Tnrpta (Men 50 Plus Multivitamin) 300-600-300 mcg Tablet Active 1 TAB PO Daily November 02, 2019 12:00am Complies with drug hhpujzs93 hr nicotine 0.875 mg/hr transdermal system (20 sources)Cholinergic Nicotinic AgonistStart: 10-03-2023 End: 11-00-3878kddbsrpn (Nicoderm, Step 1) 21 MG/24HR patch Indications: Cigarette smoker Place 1 patch over 24 hours on the skin 1 (one) time each day at the same time 30 patch 1 10/03/2023 10/17/2024 DiscontinuedStart: 10-03-2023 End: 97-87-9533qsqpc 1 dose transdermal route every hournicotine (NICODERM) 21 mg/24 hr Apply 1 Patch as directed. 10/03/2023 03/23/2024 Discontinued (Disco ntinued by another Health Care Provider)Nicotine Polacrilex (NICORETTE) [address] 4 mg between cheek and gum as needed. ActiveOmega 0-Gwe-Xef-Fish Oil (Fish Oil) 1,000 mg (120 mg-180 mg) Capsule (5 sources)Start: 00-77-6083enrz 1 capsule by mouth once dailyOmega 6-Qxz-Ssp-Fish Oil (Fish Oil) 1,000 mg (120 mg-180 mg) Capsule Active 1 CAP PO Daily November 02, 2019 1:54pm Stopped 11/01/28Start: 11-02-2019 End: 93-13-5154gxyy 1 capsule by mouth once dailyOmega 1-Pku-Lcl-Fish Oil (Fish Oil) 1,000 mg (120 mg-180 mg) Capsule Discontinued 1 CAP PO Daily November 02, 2019 12:00am March 21, 2020 11:09am Stopped 11/01/28omeprazole 20 mg delayed release oral tablet (20 sources)Proton Pump InhibitorStart: 62-00-2543gnlo 1 tablet by mouth once dailyOmeprazole 20 mg tablet,delayed release (DR/EC) Active 20 MG PO Daily November 21, 2024 12:00am Complies with drug therapytake 1 tablet by mouth before mealtimeomeprazole OTC (PriLOSEC OTC) 20 MG EC tablet Take 20 mg by mouth in the morning. Take before meals. Do not crush, chew, or split.. Active ondansetron 8 mg oral tablet (20 sources)Serotonin-3 Receptor AntagonistStart: 11-14-2023 End: 45-66-3303mocc 1 tablet by mouth every eight hours as neededondansetron (Zofran) 8 MG tablet Take 8 mg by mouth every 8 (eight) hours if needed 11/14/2023 10/17/2024 DiscontinuedpredniSONE 10 mg oral tablet (20 sources)Start: 11-09-2024 End: 38-63-7115yzde 2 tablets by mouth once dailypredniSONE (DELTASONE) 10 mg tablet Indications: Radiation-induced pulmonary fibrosis (HCC) , Malignant neoplasm of unspecified part of unspecified bronchus or lung (HCC) , Neuralgia Take 2 tablets by mouth once daily. 60 tablet 11/09/2024 12:40 PM EDT 11/09/2024 12/09/2024 ActiveStart: 59-34-8669vtyj 2 tablets by mouth once dailyPrednisone 20 mg Tablet Active 40 MG PO Daily 8 October 29, 2024 12:00am Complies with drug therapyStart: 10-42-4599xwbg 4 tablets by mouth once, then take 1 tablet by mouthPrednisone Active 1 dose pk PO per package directions November 08, 2019 7:04am take 4 tabs for3 days then take 3 tabs for 3 days then take 2 tabs for 3 days then take 1 tab for 3 daysStart: 11-08-2019 End: 02-78-9557Mralkjsnfg 10 mg tablets,dose pack Discontinued 1 dose pk PO per package directions March 21, 2020 1:00am October 27, 2024 6:17pm take 4 tabs for 3 days then take 3 tabs for 3 days then take 2 tabs for 3 days then take 1 tab for 3 daysStart: 11-02-2019 End: 50-75-6744Otmnwzfivz 10 mg tablet Discontinued 10 MG PO As Directed November 02, 2019 12:00am November 08, 2019 8:03amStart: 88-54-7374atxw 1 tablet by mouth once daily, then take 1 tablet by mouth twice daily, then take 1 tablet by mouth once dailypredniSONE (DELTASONE) 20 mg tablet TAKE 1 TAB BY MOUTH 3X DAILY FOR 3 DAYS, 1 TAB TWICE DAILY FOR 3 DAYS, 1 TAB DAILY FOR 3 DAYS 10/13/2019 Activepregabalin 75 mg oral capsule (20 sources)Start: 11-21-2024 End: 26-60-2547fdqk 1 capsule by mouth twice dailyPregabalin (Lyrica) 75 mg capsule Active 75 MG PO Twice daily 60 November 21, 2024 2:18pm Complies with drug therapyStart: 01-17-2024 End: 47-86-4540depd 1 capsule by mouth in the morningpregabalin (Lyrica) 75 MG capsule Indications: Chemotherapy-induced neuropathy (HCC) Take 1 capsule(75 mg) by mouth in the morning and 1 capsule (75 mg) before bedtime. 60 capsule 2 07/11/2024 10/17/2024 DiscontinuedStart: 01-17-2024 End: 36-64-3607jldg 1 capsule by mouth in the morningpregabalin (Lyrica) 75 MG capsule Indications: Chemotherapy-induced neuropathy (CMS/HCC) Take 1 capsule (75 mg) by mouth in the morning and 1 capsule (75 mg) before bedtime. 60 capsule 2 01/17/2024 Activeprochlorperazine 10 mg oral tablet (20 sources)PhenothiazineStart: 11-14-2023 End: 68-24-4394qdqw 1 tablet by mouth every six hours as neededprochlorperazine (Compazine) 10 MG tablet Take 10 mg by mouth every 6 (six) hours if needed 11/14/2023 10/17/2024 Discontinuedpropranolol hydrochloride 20 mg oral tablet (20 sources)beta-Adrenergic BlockerStart: 55-57-4392lthy 1 tablet by mouth once daily as neededPropranolol 20 mg tablet Active 20 MG PO Daily as needed November 21, 2024 12:00am Complies withdrug therapyStart: 25-12-2824kbod 1 tablet by mouth once daily as needed for anxietypropranolol (INDERAL) 20 mg tablet TAKE 1 TABLET BY MOUTH NEEDED FOR ANXIETY ATTACKS ONCE A DAY 1 Activetake 1 tablet by mouth three times dailypropranoloL (INDERAL) 20 mg tablet Take 1 tablet (20 mg total) by mouth 3 (three) times a day. Active sildenafil 100 mg oral tablet (20 sources)Phosphodiesterase 5 InhibitorStart: 32-77-3679Xkzefmxlan 100 mg tablet Active 100 MG PO Daily as needed November 21, 2024 12:00am administer 30 minutes to 4 hours before activity Complies with drug therapyStart: 12-15-2022 End: 59-97-3838wlvu 1 tablet by mouth once daily as neededsildenafil (Viagra) 100 MG tablet Indications: Erectile dysfunction, unspecified erectile dysfunctio n type Take 1 tablet (100 mg) by mouth Daily as needed for erectile dysfunction. 10 tablet 10 12/15/2022 Activeterazosin 1 mg oral capsule (20 sources)alpha-Adrenergic BlockerStart: 33-43-4365saih 1 capsule by mouth once daily at bedtimeTerazosin 1 mg capsule Active 1 MG PO Daily at bedtime October 27, 2024 12:00am Complies with mnkzmfzmsog66 actuat tiotropium 0.0025 mg/actuat inhalation spray (13 sources)AnticholinergicStart: 42-35-7560ystu 2 puff(s) by inhalation in the morningtiotropium bromide (SPIRIVA RESPIMAT) 2.5 mcg/actuation mist Indications: Chronic obstructive pulmonary disease, unspecified COPD type ([facility]) Inhale 2 puffs in the morning. 4 g 12 10/20/2023 ActivetiZANidine 4 mg oral tablet (3 sources)Central alpha-2 Adrenergic Agonisttake 6 mg by mouth every six hours as neededtiZANidine (ZANAFLEX) 4 mg tablet Take 1.5 tablets (6 mg total) by mouth every 6 (six) hours as needed for muscle spasms. Active End: 02-49-9127gsct 6 mg by mouth every six hours as neededtiZANidine (Zanaflex) 4 MG tablet Take 6 mg by mouth every 6 (six) hours if needed. 0 04/20/2023 Dis continuedtraZODone hydrochloride 100 mg oral tablet (20 sources)Serotonin Reuptake InhibitorStart: 12-23-2023 End: 32-01-7868fyvk 1 tablet by mouth once daily at bedtimetraZODone (DESYREL) 100 mg tablet Take 1 tablet by mouth daily at bedtime. 02/23/2024 ActiveStart: 10-03-2023 End: 00-71-2035kfhl 1 tablet by mouth at bedtimetraZODone (Desyrel) 50 MG tablet Indications: Primary insomnia Take 1 tablet (50 mg) by mouth at bedtime 30 tablet 5 10/28/2023 Activetriamcinolone acetonide 1 mg/ml topical lotion (2 sources)CorticosteroidStart: 06-14-2022 End: 42-04-3431vkuwlqwfttrja (Kenalog) 0.1 % lotion APPLY DAILY TO SKIN TO AFFECTED AREA TWICE A DAY FOR 2 WEEKS 04/20/2023 Discontinued valsartan 160 mg oral tablet (1 source)Angiotensin 2 Receptor Blockervalsartan (DIOVAN) 160 mg tablet Diovan CAPS Refills: 0 Active Activevarenicline 1 mg oral tablet (2 sources)Partial Cholinergic Nicotinic AgonistStart: 12-15-2022 End: 55-47-8785wubm 1 tablet by mouth in the morningVarenicline Tartrate, Starter, (Chantix Starting Month ) 0.5 MG X 11 & 1 MG X 42 tablet therapy pack Indications: Cigarette nicotine dependence without complication Take 1 tablet by mouth in the morning. Take as directed.. 1 each 0 12/15/2022 04/20/2023 Discontinued Completed/Discontinued Medications MedicationDrug Class(es)DatesSig (Normalized)Sig (Original)acetaminophen 500 mg oral tablet (5 sources)Start: 10-29-2024 End: 65-10-0606rasp 2 tablets by mouth three times dailyAcetaminophen 500 mg Tablet Discontinued 1000 MG PO Three times daily 0 October 29, 2024 12:00am Oc tob2024 9:21amtake 2 capsules by mouth every six hours as needed Acetaminophen 500 mg cap Take 1,000 mg by mouth every 6 hours as needed for pain. Activeacyclovir 400 mg oral tablet (4 sources)Herpesvirus Nucleoside Analog DNA Polymerase Inhibitor, Herpes Simplex Virus Nucleoside Analog DNA Polymerase Inhibitor, Herpes Zoster Virus Nucleoside Analog DNA Polymerase InhibitorStart: 11-21-2024 End: 31-31-5172hjjm 1 tablet by mouth twice dailyAcyclovir 400 mg tablet Discontinued 400 MG PO Twice daily November 21, 2024 12:00am December 10, 2024 9:22amStart: 23-24-9565mjuj 1 tablet by mouth twice dailyacyclovir (ZOVIRAX) 400 mg tablet Indications: Radiation-induced pulmonary fibrosis (HCC) , Malignant neoplasm of unspecified part of unspecified bronchus or lung (HCC) , Neuralgia Take 1 tablet by mouth two times a day. 60 tablet 2 11/09/2024 12:40 PM EDT 11/09/2024 ActiveCARBOplatin 650 mg in NaCl 0.9% 340 mL (PARAPLATIN) (2 sources)Start: 12-28-2023 End: 08-55-5267967 mg (rounded from 659 mg, Target AUC = 5), INTRAVENOUS, Administer over 30 Minutes, ONCE, 1 dose, On Tue12/28/23 at 1500, EXP: 12/29/2023 1120 RT Hazardous Chemotherapy Drug: Use appropriate PPE. Antineoplastic Irritant.Start: 12-07-2023 End: 87-43-2856366 mg (rounded from 659 mg, Target AUC = 5), INTRAVENOUS, Administer over 30 Minutes, ONCE, 1 dose, On Tue12/07/23 at 1500, EXP: 12/08/2023 1120 RT Hazardous Chemotherapy Drug: Use appropriate PPE. A ntineoplastic Irritant.CARBOplatin 800 mg in NaCl 0.9% 355 mL (PARAPLATIN) (1 source)Start: 11-16-2023 End: 17-23-9092764 mg (rounded from 808.2 mg, Target AUC = 6), INTRAVENOUS, Administer over 30 Minutes, ONCE, 1 dose, On Tue11/16/23 at 1430, EXP: 11/17/2023 1015 RT Hazardous Chemotherapy Drug: Use appropriate PPE. Antineoplastic Irritant.cephalexin 500 mg oral capsule (9 sources)Cephalosporin AntibacterialStart: 11-08-2019 End: 58-63-1692iuyy 1 capsule by mouth every eight hoursCephalexin (Keflex) 500 mg capsule Discontinued 500 MG PO Q8H March 21, 2020 1:00am October 27, 2024 6:15pmcyclobenzaprine hydrochloride 10 mg oral tablet (15 sources)Muscle RelaxantStart: 09-10-2019 End: 42-45-1592xrnt 1 tablet by mouth three times daily as needed for muscle spasmsCyclobenzaprine 10 mg tablet Discontinued 10 MG PO Three times daily as needed for back spasms November 08, 2019 12:00am March 21, 2020 11:09am 1 ml dexamethasone phosphate 10 mg/ml injection (1 source)CorticosteroidStart: 12-28-2023 End: 61-81-572865 mg, INTRAVENOUS, ONCE, 1 dose, On Tue12/28/23 at 1100, Administer over 5 minutes.dexAMETHasone 10 mg in NaCl 0.9% 50 mL (DECADRON) (2 sources)Start: 12-07-2023 End: 90-52-463403 mg, INTRAVENOUS, ONCE, 1 dose, On Tue12/07/23 at 1100, Refrigerate.Start: 11-16-2023 End: 11-28-683386 mg, INTRAVENOUS, ONCE, 1 dose, On Tue11/16/23 at 1030, Refrigerate.diphenhydrAMINE (3 sources)Histamine-1 Receptor AntagonistStart: 12-28-2023 End: 98-61-920124 mg, INTRAVENOUS, ONCE, 1 dose, On Tue12/28/23 at 1100Start: 12-07-2023 End: 01-34-932969 mg, INTRAVENOUS, ONCE, 1 dose, On Tue12/07/23 at 1100Start: 11-16-2023 End: 61-12-977732 mg, INTRAVENOUS, ONCE, 1 dose, On Tue11/16/23 at 1030 DOCOSAHEXANOIC ACID/EPA (FISH OIL ORAL) (8 sources) End: 56-75-1084fmqf 1400 mg by mouth once dailyDOCOSAHEXANOIC ACID/EPA (FISH OIL ORAL) Take by mouth. Takes 1400mg once daily 10/26/2023 Discontinuedtake 1400 mg by mouth once dailyDOCOSAHEXANOIC ACID/EPA (FISH OIL ORAL) Take by mouth. Takes 1400mg once daily Activetake 1400 mg by mouth once dailyDOCOSAHEXANOIC ACID/EPA (FISH OIL ORAL) Take by mouth. Takes 1400mg once daily 0 Activeenteric contrast (will be provided with radiology test) (16 sources)Start: 12-28-2023 End: 99-62-4881vbbrxsy contrast (will be provided with radiology test) Indications: Malignant neoplasm of lung, unspecified laterality, unspecified part of lung (HCC) , Malignant neoplasm of upper lobe of left lung(HCC) For CT CHESTABD/PEL W IVCON Routine order Administer, As Directed One Time Only, via Oral, Rectal, both Oral and Rectal, Enteric Tube, Stoma or Indwelling Catheter, Enteric Contrast as designated per enteric contrast guidelines 1 Each 12/28/2023 03/23/2024 Discontinued (Discontinued by another Health Care Provider)Start: 16-07-5436uts[place]uk contrast (will be provided with radiology test) Indications: Malignant neoplasm of lung, unspecified laterality, unspecified part of lung (HCC) , Malignant neoplasm of upper lobe of left lung(HCC) For CT CHESTABD/PEL W IVCON Routine order Administer, As Directed One Time Only, via Oral, Rectal, both Oral and Rectal, Enteric Tube, Stoma or Indwelling Catheter, Enteric Contrast as designated per enteric contrast guidelines 1 Each 12/28/2023 Active2 ml famotidine 10 mg/ml injection (3 sources)Histamine-2 Receptor AntagonistStart: 12-28-2023 End: 14-76-291106 mg, INTRAVENOUS, ONCE, 1 dose, On Tue12/28/23 at 1100, REFRIGERATEStart: 12-07-2023 End: 30-42-914626 mg, INTRAVENOUS, ONCE, 1 dose, On Tue12/07/23 at 1100, REFRIGERATEStart: 11-16-2023 End: 86-14-395290 mg, INTRAVENOUS, ONCE, 1 dose, On Tue11/16/23 at 1030, REFRIGERATEfosaprepitant 150 mg injection (1 source)Start: 12-28-2023 End: 79-77-1408820 mg, INTRAVENOUS, Administer over 30 Minutes, ONCE, 1 dose, On Tue12/28/23 at 1100, Approx Total Volume: 115 mL Refrigeratefosaprepitant 150 mg in NaCl 0.9% 250 mL (EMEND) (2 sources)Start: 12-07-2023 End: 74-47-1735884 mg, INTRAVENOUS, Administer over 30 Minutes, ONCE, 1 dose, On Tue12/07/23 at 1100, Approximate Total Volume = 280 mL RefrigerateStart: 11-16-2023 End: 48-50-3800254 mg, INTRAVENOUS, Administer over 30 Minutes, ONCE, 1 dose, On Tue11/16/23 at 1030, Approximate Total Volume = 280 mL Refrigerate hydroCHLOROthiazide 50 mg oral tablet (20 sources)Thiazide DiureticStart: 08-02-2023 End: 35-82-5687bzyc 1 tablet by mouth once dailyhydroCHLOROthiazide 50 mg tablet Take 50 mg by mouth once daily. 08/02/2023 07/20/2024 Discontinued(Discontinued by another Health Care Provider)Start: 06-17-2022 End: 62-81-6775popq 1 tablet by mouth once daily in the morning hydroCHLOROthiazide (HYDRODiuril) 50 MG tablet Indications: Essential (primary) hypertension (CMS/HCC) TAKE 1 TABLET BY MOUTH EVERY DAY IN THE MORNING 90 tablet 3 09/13/2022 04/20/2023 DiscontinuedStart: 11-02-2019 End: 24-65-7801hlrs 1 tablet by mouth once dailyHydrochlorothiazide 25 mg tablet Discontinued 25 MG PO Daily November 02, 2019 12:00am October 6:16pm hydroCHLOROthiazide 25 mg / valsartan 160 mg oral tablet (10 sources)Thiazide Diuretic, Angiotensin 2 Receptor Valentina End: 03-62-2204pxmt 1 tablet by mouth once dailyValsartan-Hydrochlorothiazide (DIOVAN HCT) 160-25 mg per tablet Take 1 tablet by mouth once daily. 10/26/2023 Discontinued End: 47-34-3558rjqv 1 tablet by mouth in the morningvalsartan- hydroCHLOROthiazide (Diovan HCT) 160-25 MG tablet Take 1 tablet by mouth in the morning. 0 04/20/2023 Discontinuedindomethacin 75 mg extended release oral capsule (14 sources)Nonsteroidal Anti-inflammatory DrugStart: 08-27-2014 End: 96-86-9702uzdv 1 capsule by mouth once daily at breakfastindomethacin ER 75 mg CR capsule Take 1 capsule by mouth daily with breakfast. 14 capsule 0 08/27/2014 11/10/2023 Discontinued (Discontinued by Patient)iv contrast (will be provided with radiology test) (20 sources)Start: 08-01-2024 End: 70-65-1361tpfcfo 1 dose intravenously onceiv contrast (will be provided with radiology test) MRI Brain Inject, intravenously, once for 1 dose.No IV access, insert saline lock prior to beginning of sedation, infusion, injection of imaging exam.Discontinue saline lock post exam. If Pt. has a central line or IVAD, may access for administration according to line specific nursing protocol.Once exam is complete flush line and de-access according to line specific nursing protocol in the MR contrast administration guidelines link 1 each 08/01/2024 08/02/2024 ExpiredStart: 07-20-2024 End: 11-58-8180xjiytn 1 dose intravenously onceiv contrast (will be provided with radiology test) CT Brain WO/W - No IV access, insert saline lockprior to the sedation, infusion, injection for imaging exam. Discontinue saline lock post exam. If Pt. has a central line or IVAD, may access for administration according to line specific nursing protocol. Once exam is complete flush line and de-access according to line specific nursing protocol inthe CT contrast administration guidelines link. 1 each 07/20/2024 07/21/2024 ExpiredStart: 07-20-2024 End: 27-55-7388efeudx 1 dose intravenously onceiv contrast (will be provided with radiology test) CT Brain WO/W - No IV access, insert saline lockprior to the sedation, infusion, injection for imaging exam. Discontinue saline lock post exam. If Pt. has a central line or IVAD, may access for administration according to line specific nursing protocol. Once exam is complete flush line and de-access according to line specific nursing protocol inthe CT contrast administration guidelines link. 1 each 07/20/2024 07/21/2024 ActiveStart: 12-28-2023 End: 69-39-3698cx contrast (will be provided with radiology test) Indications: Malignant neoplasm of lung, unspecified laterality, unspecified part of lung (HCC) , Malignant neoplasm of upper lobe of left lung (HCC) CT Chest ABD/PEL- Inject, intravenously, once for 1 dose.No IV access, insert saline lock prior to the beginning of sedation, infusion, injection of imaging exam. Discontinue saline lock post exam. If Pt. has a central line or IVAD, may access for administration according to line specific nursing protocol. Once exam is complete flush line and de-access according to line specific nursing protocol in the CT contrast administration guidelines link. 1 Each 12/28/2023 03/23/2024 Discontinued (Discontinued by another Health Care Provider)Start: 81-41-3318yh contrast (will be provided with radiology test) Indications: Malignant neoplasm of lung, unspecified laterality, unspecified part of lung (HCC) , Malignant neoplasm of upper lobe of left lung (HCC) CT Chest ABD/PEL-Inject, intravenously, once for 1 dose.No IV access, insert saline lock prior to the beginning of sedation, infusion, injection of imaging exam. Discontinue saline lock post exam. If Pt. has a central line or IVAD, may access for administration according to line specific nursing protocol. Once exam is complete flush line and de-access according to line specific nursing protocol in the CT contrast administration guidelines link. 1 Each 12/28/2023 Activelevothyroxine sodium 0.175 mg oral tablet (20 sources)l-ThyroxineStart: 06-12-2018 End: 00-40-9647zwor 1 tablet by mouth once dailyLevothyroxine (Synthroid) 175 mcg tablet Discontinued 175 MCG PO Daily November 02, 2019 12:00am November 27, 2024 3:39pmlevothyroxine (SYNTHROID, LEVOTHROID) 100 MCG tablet Synthroid 100 MCG Oral Tablet Refills: 0 Active Activelosartan potassium 100 mg oral tablet (20 sources)Angiotensin 2 Receptor BlockerStart: 11-02-2019 End: 98-78-2791gbxl 1 tablet by mouth once dailyLosartan 100 mg tablet Discontinued 100 MG PO Daily November 02, 2019 12:00am October 27, 2024 6:17pm take 2 tablets by mouth once dailylosartan (COZAAR) 50 mg tablet Take 100 mg by mouth daily. Activenivolumab 360 mg in NaCl 0.9% 146 mL (OPDIVO) (3 sources)Start: 12-28-2023 End: 70-00-5884086 mg, INTRAVENOUS, Administer over 30 Minutes, ONCE, 1 dose, On Tue12/28/23 at 1130, EXP: 12/28/20231909 RT Administer with 0.2 micron filter. Protect from light if utilizing refrigerator 7 day expiration.Start: 12-07-2023 End: 95-59-6460372 mg, INTRAVENOUS, Administer over 30 Minutes, ONCE, 1 dose, On Tue12/07/23 at 1130, EXP: 12/07/2023 1910 RT Administer with 0.2 micron filter. Protect from light if utilizing refrigerator 7 day expiration.Start: 11-16-2023 End: 47-69-6380085 mg, INTRAVENOUS, Administer over 30 Minutes, ONCE, 1 dose, On Tue11/16/23 at 1100, EXP: 11/16/2023 1815 RT Administer with 0.2 micron filter. Protect from light if utilizing refrigerator 7 day expiration.nivolumab 480 mg in NaCl 0.9% 158 mL (OPDIVO) (3 sources)Start: 07-20-2024 End: 89-79-3898760 mg, INTRAVENOUS, Administer over 30 Minutes, ONCE, 1 dose, On Tue07/20/24 at 1530, Approx TotalVolume: 158 mL EXP: 07/20/2024 2330 RT Administer with 0.2 micron filter. Protect from light if utilizing refrigerator 7 day expiration.Start: 06-15-2024 End: 88-21-0736028 mg, INTRAVENOUS, Administer over 30 Minutes, ONCE, 1 dose, On Tue06/15/24 at 1500, Approx TotalVolume: 158 mL EXP: 2230 06/15/24 Administer with 0.2 micron filter. Protect from light if utilizingrefrigerator 7 day expiration.Start: 05-18-2024 End: 55-81-8282610 mg, INTRAVENOUS, Administer over 30 Minutes, ONCE, 1 dose, On Tue05/18/24 at 1400, Approx TotalVolume: 158 mL EXP: 05/18/2024 2150 RT Administer with 0.2 micron filter. Protect from light if utilizing refrigerator 7 day expiration.oxyCODONE hydrochloride 5 mg oral tablet (14 sources)Opioid AgonistStart: 10-29-2024 End: 34-28-3325bdyh 5-10 mg by mouth every six hoursOxycodone 5 mg tablet Discontinued 5 - 10 MG PO Every 6 hours 30 October 29, 2024 November 21, 2024 1:50pmStart: 03-21-2020 End: 19-63-1794lzvy 5-10 mg by mouth every six hours as needed for painOxycodone 5 mg capsule Discontinued 5 - 10 MG PO Q6H as needed for pain 60 March 21, 2020 March 21, 2020 2:16pmStart: 03-21-2020 End: 39-18-1643qfhs 5-10 mg by mouth every six hours as needed for painOxycodone 5 mg capsule Discontinued 5 - 10 MG PO Q6H as needed for pain 60 March 21, 2020 October 27, 2024 6:17pmStart: 03-21-2020 End: 09-82-4032rykr 5-10 mg by mouth every six hours as needed for painOxycodone 5 mg capsule Discontinued 5 - 10 MG PO Q6H as needed for pain 60 March 21, 2020 October 27, 2024 6:17pmStart: 64-04-8341qcyd 5-10 mg by mouth every six hoursOxycodone Active 5 - 10 MG PO Q6H 60 8 November 08, 2019 7:04am PACLitaxel 330 mg in NaCl 0.9% 595 mL (TAXOL) (2 sources)Start: 12-28-2023 End: 36-64-7450665 mg (rounded from 336 mg = 175 mg/m2 1.92 m2 Treatment Plan BSA from Recorded weight), INTRAVENOUS, at 198.33 mL/hr, Administer over 3 Hours, ONCE, 1 dose, On Tue12/28/23 at 1200, EXP: 1100 01/07/24 REF Hazardous Chemotherapy Drug: Use appropriate PPE. Antineoplastic Irritant with Vesicant Potential. Administer with non-DEHP 0.2 micron filter and tubing.Start: 12-07-2023 End: 33-75-6645160 mg (rounded from 336 mg = 175 mg/m2 1.92 m2 Treatment Plan BSA from Recorded weight), INTRAVENOUS, at 198.33 mL/hr, Administer over 3 Hours, ONCE, 1 dose, On Tue12/07/23 at 1200, EXP: 12/08/2023 1715 RT Hazardous Chemotherapy Drug: Use appropriate PPE. Antineoplastic Irritant with Vesicant Potential. Administer with non-DEHP 0.2 micron filter and tubing.PACLitaxel 384 mg in NaCl 0.9% 604 mL (TAXOL) (1 source)Start: 11-16-2023 End: 15-87-4063450 mg (200 mg/m2 1.92 m2 Treatment Plan BSA from Recorded weight), INTRAVENOUS, at 201.33 mL/hr, Administer over 3 Hours, ONCE, 1 dose, On Tue11/16/23 at 1130, EXP: 11/17/2023 1615 RT Hazardous Chemotherapy Drug: Use appropriate PPE. Antineoplastic Irritant with Vesicant Potential. Administer withnon-DEHP 0.2 micron filter and tubing.5 ml palonosetron 0.05 mg/ml injection (3 sources)Serotonin-3 Receptor AntagonistStart: 12-28-2023 End: .25 mg, INTRAVENOUS, ONCE, 1 dose, On Tue12/28/23 at 1100, Flush IV line with NS prior to and following administration.Start: 12-07-2023 End: .25 mg, INTRAVENOUS, ONCE, 1 dose, On Tue12/07/23 at 1100, Flush IV line with NS prior to and following administration.Start: 11-16-2023 End: .25 mg, INTRAVENOUS, ONCE, 1 dose, On 11/16/23 at 1030, Flush IV line with NS prior to and following administration.microencapsulated potassium chloride 20 meq extended release oral tablet (20 sources)Start: 06-15-2024 End: 81-06-8382lbdh 1 tablet by mouth once daily, then take 1 tablet by mouth twice daily, then take 1 tablet by mouth once dailypotassium chloride ER (KLOR- CON) 20 mEq tablet Take 1 tablet by mouth once daily. Take 1 tablet by mouth twice daily x3 days then take 1 tablet by mouth daily 60 tablet 1 06/15/2024 08/16/2024 DiscontinuedStart: 02-24-2024 End: 73-36-4132cucu 1 tablet by mouth twice dailypotassium chloride ER (KLOR- CON) 20 mEq tablet Indications: Malignant neoplasm of lung, unspecified laterality, unspecified part of lung (HCC) , Abnormal blood chemistry Take 1 tablet by mouth two times a day for 5 days. 10 tablet 02/24/2024 02/29/2024 ActiveStart: 12-28-2023 End: 37-19-7834hfkw 2 tablets by mouth once dailypotassium chloride ER (KLOR- CON) 20 mEq tablet Take 2 tablets by mouth once daily for 3 days. 6 tablet 12/28/2023 12/31/2023 Activetake 1 tablet by mouth once dailypotassium chloride CR (Klor-Con) 8 MEQ ER tablet Take 8 mEq by mouth Daily Do not crush, chew, or split. Activerosuvastatin calcium 40 mg oral tablet (19 sources)HMG-CoA Reductase Inhibitor End: 07-62-0932tnpp 1 tablet by mouth once dailyrosuvastatin (CRESTOR) 40 mg tablet Take 40 mg by mouth once daily. 11/10/2023 Discontinued (Discontinued by Patient)rosuvastatin (CRESTOR) 5 mg tablet Crestor TABS Refills: 0 Active Active End: 97-29-7639hfor 1 tablet by mouth once dailyrosuvastatin (CRESTOR) 10 mg tablet Take 10 mg by mouth daily. Activevitamin b12 0.5 mg oral tablet (5 sources)Vitamin G30Jrewi: 11-02-2019 End: 31-93-9754plxy 1 tablet by mouth once dailyCyanocobalamin (Vitamin B-12) (Vitamin B-12) 500 mcg Tablet Discontinued 500 MCG PO Daily November 02, 2019 12:00am March 21, 2020 11:07amvitamin e 90 mg oral capsule (20 sources)Start: 03-21-2020 End: 72-06-4878uuqm 1 capsule by mouth once dailyVitamin E 200 unit Capsule Discontinued 200 UNIT PO Daily March 21, 2020 1:00am October 27, 2024 6:17pmtake 4 capsules by mouth in the morningvitamin E 100 units capsule Take 4 capsules (400 Units total) by mouth in the morning. 20 IU . Activetake 1 capsule by mouth in the morningVitamin E 45 MG (100 UNIT) capsule Take 20 Units by mouth in the morning. Active End: 75-89-1840eziiqec E, dl,tocopheryl acet, (VITAMIN E, DL, ACETATE,) 45 mg (100 unit) capsule Take 400 Units bymouth once daily. 03/23/2024 Discontinued (Discontinued by Patient)vitamin E, dl,tocopheryl acet, (VITAMIN E, DL, ACETATE,) 45 mg (100 unit) capsule Take 400 Units bymouth. Activevitamin E 100 units capsule Take 20 Units by mouth in the morning. 20 IU . Active Problems Active Problems Problem ClassificationProblemDateDocumented DateEpisodic/ChronicAllergic reactions (20 sources)Atopic dermatitis; Translations: [Other atopic dermatitis]Onset: 406747-14-0278OtarkctAuiuylb disorders (20 sources)Panic disorder; Translations: [Panic disorder [episodic paroxysmal anxiety]]Onset: 945579-79-1727NdoilyiLzcjqn and peripheral arterial embolism or thrombosis (6 sources)Bilateral atheroembolism of lower limbs; Translations: [Atheroembolism of bilateral lower extremities]Onset: ChronicAttention-deficit, conduct, and disruptive behavior disorders (3 sources)Attention deficit hyperactivity disorder, combined type; Translations: [Attention-deficit hyperactivity disorder, combined type] 98-18-9430NwwqooqAbvvjm of bronchus; lung (20 sources)Malignant neoplasm of upper lobe of left lung; Translations: [Malignant neoplasm of upper lobe, left bronchus or lung]Onset: 08-07-2024 05-26-5148ZzxkzvuMhmuqu of bronchus; lung (1 source)History of malignant neoplasm of thoracic cavity structure; Translations: [Personal history of other malignant neoplasm of bronchus and lung]98-74-2798ZulcszkpDwpphz; other respiratory and intrathoracic (7 sources)Malignant neoplasm of lower respiratory tract; Translations: [Malignant neoplasm of trachea]Onset: 608262-63-8676FreaclbQtdbjsof (20 sources)Cataract; Translations: [Unspecified cataract]Onset: 04-29-2016 17-68-0900RpfpofdAohjwwe obstructive pulmonary disease and bronchiectasis (20 sources)Chronic obstructive lung disease; Translations: [Chronic obstructive pulmonary disease, unspecified]Onset: 563712-66-6894VsagzwaWtzartjqhhiza of surgical procedures or medical care (20 sources)Hypothyroidism following radioiodine therapy; Translations: [Postprocedural hypothyroidism]Onset: 334370-82-3887IljsozlMhnjqgiwxa associated with dizziness or vertigo (2 sources)Dizziness and giddiness; Translations: [Dizziness and giddiness] Onset: 82-95-0307XqlfcnzgHdniipspsm and other anemia (1 source)Anemia; Translations: [Anemia, unspecified]91-83-1329VgkcwhduKddxxrzg mellitus without complication (20 sources)Prediabetes; Translations: [Prediabetes]Onset: 10-15-2020 Resolved: 625856-63-5588ZeftmlnzPkiibcali of lipid metabolism (20 sources)Mixed hyperlipidemia; Translations: [Mixed hyperlipidemia]Onset: 262328-54-9984LajtmguQ Codes: Adverse effects of medical drugs (1 source)Adverse effect of antineoplastic and immunosuppressive drugs, initial encounter; 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)]Onset: 51-49-1919VbcvocdqMcpjyifhv hypertension (20 sources)Essential hypertension; Translations: [Essential (primary) hypertension]Onset: 11-23-2010 Resolved: 155989-96-0226WtvmidhMdngcxnv; including migraine (2 sources)Headache; including migraine; Translations: [Headache, unspecified] Onset: 24-55-1618Ddgicdazial of prostate (20 sources)Benign prostatic hyperplasia; Translations: [Benign prostatic hyperplasia with lower urinary tract symptoms]Onset: 12-23-2020 Resolved: 556343-59-1555YovsulbYhltprbfnyrtb and screening for infectious disease (4 sources)Contact with and (suspected) exposure to other viral communicable diseases; Translations: [CONTCT EXPS OTH VIRL COMMUNICABL DZ]Onset: 01-24-2020 EpisodicLung disease due to external agents (5 sources)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; Translations: [Chronic and other pulmonary manifestations dueto radiation]Onset: ChronicMalaise and fatigue (20 sources)Chronic fatigue syndrome; Translations: [Chronic fatigue syndrome] Onset: 808446-70-4211YtwlxnvOyufvkl and fatigue (20 sources)Malaise and fatigue; Translations: [Other malaise]Onset: 09-27-2023 06-06-4517TeuvpibeHmmtwsqbinosr mental health disorders (20 sources)Primary insomnia; Translations: [Primary insomnia]Onset: 10-03-2023 39-74-0871UpwltuzSpecdpidooq chest pain (8 sources)Chest pain; Translations: [Chest pain, unspecified]Onset: 10-27-2024 88-62-4235TpzeoajrVtijhqmdc or stenosis of precerebral arteries (20 sources)Bilateral stenosis of carotid arteries; Translations: [Occlusion and stenosis of bilateral carotid arteries]Onset: 09-22-2020 Resolved: 866049-24-6933EycdjvkMmaclmjvivqfjx (20 sources)Osteoarthritis of joint of left shoulder region; Translations: [Primary osteoarthritis, left shoulder]Onset: 12-15-2022 Resolved: 761437-09-9543ChqplqcCqbur aftercare (3 sources)Under care of palliative care physician; Translations: [Encounter for palliative care]92-79-5815YiawdzcsWevvk aftercare (20 sources)Long-term current use of drug therapy; Translations: [Other exterminator helper termite (current) drug therapy]Onset: 737936-48-9912LbfwmswdXmuyi aftercare (1 source)H/O: malignant neoplasm; Translations: [Encounter for follow-up examination after completed treatment for malignant neoplasm]15-37-1563Woqyptut Other aftercare (1 source)Long-term current use of systemic steroid; Translations: [nursing home (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]89-13-7656QdjqsujcGpxim aftercare (1 source)Encounter for palliative care; Translations: [Palliative care by specialist]Onset: 63-16-1785KrstblikExgom aftercare (1 source)nursing home (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; Translations: [nursing home (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]Onset: 34-62-3205BdfbvuveGeeks aftercare (1 source)Encounter for follow-up examination after completed treatment for malignant neoplasm; Translations:[Encounter for follow-up examination after completed treatment for malignant neoplasm]Onset: 48-83-8020TwsttgeoZvxnl connective tissue disease (20 sources)History of cervical spine fusion; Translations: [Arthrodesis status] Onset: 089213-85-1986OchilkpdJeiou connective tissue disease (20 sources)Impingement syndrome of left shoulder region; Translations: [Impingement syndrome of left shoulder]Onset: 048680-84-8614HcrzyppmKlpwx connective tissue disease (20 sources)Trochanteric bursitis of right hip; Translations: [Trochanteric bursitis, right hip]Onset: 892715-35-2356XurqhcnrJqwyy connective tissue disease (4 sources)Impingement syndrome of right shoulder region; Translations: [Impingement syndrome of right shoulder]49-82-1843WvmcbyskJoicq connective tissue disease (2 sources)Muscle finding; Translations: [Myalgia, unspecified site]05-03-2024 EpisodicOther connective tissue disease (1 source)Neuralgia; Translations: [Neuralgia and neuritis, unspecified] 26-70-3887QifojoyvXsgbe connective tissue disease (1 source)Neuralgia and neuritis, unspecified; Translations: [Neuralgia]Onset: 65-42-1962ByoqyoeiEomkx ear and sense organ disorders (20 sources)Mixed conductive AND sensorineural hearing loss; Translations: [Mixed conductive and sensorineural hearing loss, unspecified]Onset: 04-29-2016 11-37-6346DdhdixuLqdjr ear and sense organ disorders (3 sources)Tinnitus, unspecified ear; Translations: [Tinnitus, unspecified ear] Onset: 38-54-3678NbrwrlhvXyubb inflammatory condition of skin (20 sources)Seborrheic dermatitis; Translations: [Seborrheic dermatitis, unspecified]Onset: 984215-57-0956QwbdoqkeEkbgo lower respiratory disease (2 sources)Nodule of lung; Translations: [Solitary pulmonary nodule]10-24-2023 EpisodicOther lower respiratory disease (1 source)Solitary pulmonary nodule; Translations: [Lung nodule]Onset: 22-78-8604PyzdkvbiSvpqa lower respiratory disease (2 sources)Shortness of breath; Translations: [Shortness of breath]Onset: 37-52-9705OyzvlmrrMhlnc lower respiratory disease (2 sources)Dyspnea; Translations: [Shortness of breath]37-58-5739JkavquvbJdmvq male genital disorders (20 sources)Male erectile dysfunction, unspecified; Translations: [Impotence of organic origin]Onset: 987013-52-7817EbfbafpDaiqh nervous system disorders (20 sources)Chronic pain syndrome; Translations: [Chronic pain syndrome]Onset: 04-14-2016 Resolved: 984270-79-3511ZtvqpefLnjdz nervous system disorders (1 source)Chronic pain; Translations: [Other chronic pain]90-22-3822CnedvwtLbeut nervous system disorders (2 sources)Neuropathy; Translations: [Drug-induced polyneuropathy]11-29-2023 ChronicOther nervous system disorders (20 sources)Neuropathy caused by chemical substance; Translations: [Drug-induced polyneuropathy]Onset: 300285-61-2820TkcldyqZseil nervous system disorders (1 source)Drug-induced polyneuropathy; 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)]Onset: 04-46-3775GdcbkvgZwbwb nervous system disorders (1 source)Paraneoplastic neuromyopathy and neuropathy; 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)]Onset: 94-49-3652EsmmavkMyfpq nervous system disorders (20 sources)Paresthesia of right lower limb; Translations: [Paresthesia of skin] Onset: 165458-33-8491JgbjkngxUmjuz nervous system disorders (20 sources)Abnormal gait; Translations: [Unsteadiness on feet]Onset: 10-12-2023 52-32-0536QkfcccvfYropw non-epithelial cancer of skin (20 sources)History of malignant neoplasm of skin; Translations: [Personal history of other malignant neoplasm of skin]Onset: 333092-96-2830Hrnbmqcr Other non-traumatic joint disorders (20 sources)Rotator cuff arthropathy of right shoulder; Translations: [Other specific arthropathies, not elsewhere classified, right shoulder]Onset: 584639-69-0856FtiqkviIhjbj non-traumatic joint disorders (4 sources)Hip pain; Translations: [Pain in right hip]58-51-2812RotcqwirEjisg non-traumatic joint disorders (2 sources)Pain in right shoulder; Translations: [Pain in joint, shoulder region]90-00-2675SaiaalmnQshdi non-traumatic joint disorders (2 sources)Pain in left shoulder; Translations: [Pain in joint, shoulder region] 32-65-6328VfnfphfnSwsev screening for suspected conditions (not mental disorders or infectious disease) (20 sources)Decreased testosterone level ; Translations: [Other specified abnormal findings of blood chemistry]Onset: 081800-62-7999TejadfcsZqdnc upper respiratory disease (20 sources)Allergic rhinitis due to pollen; Translations: [Allergic rhinitis due to pollen]Onset: 590190-35-8803NggbpedBkgjtezkxu and visceral atherosclerosis (20 sources)Peripheral vascular disease, unspecified; Translations: [Peripheral vascular disease, unspecified]Onset: 867534-58-9234ImpiihjJeelkyce; pneumothorax; pulmonary collapse (11 sources)Pleural effusion; Translations: [Pleural effusion, not elsewhere classified]Onset: 591489-00-3963EpxkkkyqMlcxdfli codes; unclassified (3 sources)Insomnia co-occurrent and due to medical condition; Translations: [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 condition]38-73-8931YyzbhzmKvurjjfn codes; unclassified (1 source)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 condition; Translations: [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 condition]Onset: 32-47-2946XwtscedGluwxiqp codes; unclassified (20 sources)Patient encounter status; Translations: [Immunotherapy]Onset: 150706-05-0804IvscvmdoYdjfpzveu and history of mental health and substance abuse codes (1 source)Ex-smoker; Translations: [Personal history of nicotine dependence] 06-63-8855DthngxetHbywxhabtlh; intervertebral disc disorders; other back problems (20 sources)Lumbar disc prolapse with radiculopathy; Translations: [Degeneration of cervical intervertebral disc]Onset: 10-23-2019 Resolved: 073981-08-9053XiurmgoPfugpbekdbg; intervertebral disc disorders; other back problems (20 sources)Low back pain; Translations: [Radiculopathy, lumbar region]Onset: 04-29-2016 Resolved: 930809-24-0328XevkadhiZgxijsu on above:Problem List clean-up per request of Phys. EHR CmteSprains and strains (2 sources)Tendon rupture - hip; Translations: [Strain of muscle, fascia and tendon of right hip, subsequent encounter]41-34-4188VjarmyzeFsctikfjv-related disorders (20 sources)Nicotine dependence, cigarettes, uncomplicated; Translations: [Cigarette smoker ]Onset: 04-14-2016 Resolved: 774630-94-8674YmhsjmsQstjqzf disorders (1 source)Disorder of thyroid gland; Translations: [Other specified disorders of thyroid]34-98-7757FtqpqtcxQhvzfryef cerebral ischemia (20 sources)Transient cerebral ischemia; Translations: [Transient cerebral ischemic attack, unspecified]Onset: 326727-20-2930XdyzqdbFcprebwgigdo (1 source)Extremity PainOnset: 38-51-9277Cyjltnjqoepw (2 sources)New PatientOnset: 15-02-4795Iklvvfnurimo (11 sources)Patient on antidepressant monitoring planOnset: 320042-32-0598 Unclassified (1 source)Medical ScreeningOnset: 81-46-1069Eshrndhegtsm (1 source)Pre-op ExamOnset: 48-62-8732Hqqumpawpufc (6 sources)Post hospital appointment. Please call to reschedule if needed. Unclassified (1 source)Lung CancerOnset: 23-02-8138Mgtkajowjjqg (1 source)Immunotherapy; Translations: [Immunotherapy]Onset: 12-57-9804Izmwp infection (6 sources)Herpes zoster; Translations: [Zoster without complications]Onset: 212133-17-5186Ttxnsxak Past or Other Problems Problem ClassificationProblemDateDocumented DateEpisodic/ChronicAcute bronchitis (20 sources)Acute infective bronchitis; Translations: [Acute bronchitis due to other specified organisms]Onset: 05-02-2023 Resolved: 897303-66-5491VxpidkdxMbsgfrfxwxbome/social admission (20 sources)Unemployed; Translations: [Unemployment, unspecified]Onset: 04-29-2016 Resolved: 793477-83-0135EfwavgruHowfsiob; including migraine (20 sources)Headache disorder; Translations: [Headache disorder]Onset: 512412-42-8689CmfbsfsdKegyuytgsph (20 sources)External hemorrhoids; Translations: [Residual hemorrhoidal skin tags]Onset: 04-29-2016 Resolved: 200946-25-2660WzobcqcyOznnfiscnq infection (20 sources)Gastrointestinal infection; Translations: [Infectious gastroenteritis and colitis, unspecified]Onset: 07-17-2018 Resolved: 555487-89-9104OcnnklxiHgys disorders (20 sources)Mood disordersOnset: Nausea and vomiting (4 sources)Nausea; Translations: [Nausea]Onset: 524297-21-5321Gsvkpvey Neoplasms of unspecified nature or uncertain behavior (5 sources)Paraneoplastic neuropathy; 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]Onset: 612794-77-5726TyxpaojoRmyarck system congenital anomalies (20 sources)Encephalocele of other sites; Translations: [Temporal encephalocele] Onset: 06-18-2018 Resolved: 117489-26-6057JjnhmduBupge aftercare (1 source)Other alf (current) drug therapy; Translations: [OTH SNF CURRENT DRUG THERAPY]Onset: 95-77-9483TloermcpXkwef circulatory disease (20 sources)History of cerebrovascular accident without residual deficits; Translations: [Personal history of transient ischemic attack (TIA), and cerebral infarction without residual deficits]Onset: 04-29-2016 Resolved: 254529-81-4794VsmtanyvVquia circulatory disease (20 sources)History of cerebrovascular disease; Translations: [Personal history of transient ischemic attack (TIA), and cerebral infarction without residual deficits]Onset: 12-15-2022 Resolved: 328573-00-8439BfpsqagnHfhtd diseases of bladder and urethra (20 sources)Disorder of bladder; Translations: [Bladder disorder, unspecified] Onset: 06-13-2020 Resolved: 337107-62-9635FcaucrlUtdgb ear and sense organ disorders (20 sources)Otorrhea of left ear; Translations: [Otorrhea, left ear]Onset: 08-01-2019 Resolved: [id number]gb ear and sense organ disorders (20 sources)Tinnitus of left ear; Translations: [Tinnitus, left ear]Onset: 05-28-2018 Resolved: 378772-77-7433YxosckxwOuxlr gastrointestinal disorders (20 sources)Constipation; Translations: [Constipation, unspecified]Onset: 10-15-2019 Resolved: 708243-41-0330HbalcmygClmml gastrointestinal disorders (20 sources)H/O: gastrointestinal disease; Translations: [Personal history of other diseases of the digestive system]Onset: 553436-84-2970OstyxptbXsfic lower respiratory disease (3 sources)Other nonspecific abnormal finding of lung field; Translations: [Other nonspecific abnormal findingof lung field]Onset: 57-65-4997WkjfiipqErysr lower respiratory disease (18 sources)Lung mass; Translations: [Other nonspecific abnormal finding of lung field]Onset: 09-28-2023 Resolved: 605978-48-8384JrwtzccfHiaus nervous system disorders (20 sources)Difficulty walking; Translations: [Difficulty in walking, not elsewhere classified]Onset: 12-03-2019 Resolved: 246536-04-9246VmolxtwCzobk nervous system disorders (20 sources)Ataxia; Translations: [Ataxia, unspecified]Onset: 04-29-2016 Resolved: 757017-35-3732XnrneohkXhvas nervous system disorders (20 sources)Abnormal reflex; Translations: [Abnormal reflex]Onset: 02-16-2012 Resolved: 161597-05-8399YiahgntjIjjxq nervous system disorders (20 sources)Impairment of balance; Translations: [Other abnormalities of gait and mobility]Onset: 04-27-2016 Resolved: 712853-22-2018CbaccyazZlwri nervous system disorders (20 sources)Skin sensation disturbance; Translations: [Unspecified disturbances of skin sensation]Onset: 06-30-2020 Resolved: 812730-33-7339RudbhzzoYbdsy non-traumatic joint disorders (20 sources)Soft tissue lesion of shoulder region; Translations: [Other specified joint disorders, unspecified shoulder]Onset: EpisodicOther nutritional; endocrine; and metabolic disorders (20 sources)Body mass index 30+ - obesity; Translations: [Body mass index (BMI) 30.0-30.9, adult]Onset: 05-15-2019 Resolved: 661548-83-2993VasvplqUzpxlwgj codes; unclassified (20 sources)Family history of malignant neoplasm of lung; Translations: [Family history of malignant neoplasm of trachea, bronchus and lung]Onset: 08-01-2019 52-21-3398WfcuzhidSmdnxmly codes; unclassified (20 sources)Family history of prostate cancer; Translations: [Family history of malignant neoplasm of prostate]Onset: 03-23-2018 Resolved: 067853-83-4634ZhzwwkqqTzxuqwwd codes; unclassified (20 sources)Difficulty sleeping ; Translations: [Sleep disorder, unspecified] Onset: 10-14-2020 Resolved: 847187-67-9125ZcykwikzXrtyiuwb codes; unclassified (20 sources)Postprocedural state finding; Translations: [Other specified postprocedural states]Onset: 12-15-2022 Resolved: 188171-97-4614CifhmzrtKmnqrsft codes; unclassified (20 sources)History of craniotomy; Translations: [Other specified postprocedural states]Onset: 372820-32-6485FhnughfxOtpvwpb (8 sources)Syncope and collapse; Translations: [Syncope and collapse]Onset: 573424-02-1958IhtqlsbbVmbsmpa disorders (20 sources)Hypothyroidism; Translations: [Hypothyroidism, unspecified]Onset: 11-23-2010 Resolved: 140037-04-9065DiepaoiMjplwxxopedi (20 sources)Onset: 441331-40-1678Pzjtyksowfri (1 source)Patient encounter ujlpvh27-43-7404 Results Test NameValueInterpretationReference RangeFacilityCNPNon 72-15-0476NYJYKnczrk [facility] HospitalBasophils Auto (Bld) [#/Vol]Ordered By: Lo Hancock on 12-30-3919Tntdaqlti (Bld) [#/Vol]0.04 10*3/uL<0.11[facility] HospitalBasophils/100 WBC Auto (Bld)Ordered By: Lo Hancock on 30-18-6973Qrsokexxs/100 WBC (Bld)0.5 %[facility] HospitalBlood manual differential comment interpretation narrativeOrdered By: Lo Hancock on 33-86-9177Qyagak differential comment Jean (Bld) [Interp]AutoOhio State East HospitalCB W Auto Differential panel (Bld)on 66-22-5461Nmdxciucg (Bld) [#/Vol]0.04 10*3/uLNormal<0.11[facility] on above: Order Comment: Specimen Type: BLOOD SPECIMENOrdering Facility: [facility] Address:[address] [place] [address]Cfnrakmxj By: #### 03775- 8 ####[facility]ARIBEL [facility] LABCLIA [id number] [place], [place] [address]Mwjmwdfir/100 WBC (Bld)0.5 %NormalTwin City Hospital on above:Order Comment: Specimen Type: BLOOD SPECIMENOrdering Facility: [facility] Address:[address] [place], [place] [address]Performed By: #### 89014-2 ####[facility] LABCLIA [id number] [place], [place] [address]Ndhaeybpouqa cell count method Nom (Bld)AutoNormalCUpper Valley Medical Center on above:Order Comment: Specimen Type: BLOOD SPECIMENOrdering Facility: [facility] Address:[address] [place], [place] [address]Performed By: #### 28627-3 ####[facility] LABIA [id number] [place], [place] [address]Idertdedjqi (Bld) [#/Vol]0.05 10*3/uLNormal<0.46[facility] on above:Order Comment: Specimen Type: BLOOD SPECIMENOrdering Facility: [facility] Address:[address] [place], [place] [address]Performed By: #### 67345-9 ####[facility] LABIA [id number] [place], [place] [address]Qeldqqyghwh/100 WBC (Bld)0.6 %NormalTwin City Hospital on above:Order Comment: Specimen Type: BLOOD SPECIMENOrdering Facility: [facility] Address:[address] [place], [place] [address]Performed By: #### 60360-2 ####[facility] LABIA [id number] [place], [place] [address]Xogrqottnjg distribution width (RBC) [Ratio]16.4 %High 11.5-15.0[facility] on above:Order Comment: Specimen Type: BLOOD SPECIMENOrdering Facility: [facility] Address:[address] [place], [place] [address]Performed By: #### 58704-9 ####[facility] LABIA [id number] [place] [address] Hematocrit (Bld) [Volume fraction]37.6 %Low39.0-51.0[facility] Comment on above:Order Comment: Specimen Type: BLOOD SPECIMENOrdering Facility: [facility] Address:[address] [place] [address] Performed By: #### 77361-0 ####[facility] LABCLIA [id number] [place], [place] [address]Gcxoyfzvpg (Bld) [Mass/Vol]12.6 g/dLLow13.0-17.0[facility] on above:Order Comment: Specimen Type: BLOOD SPECIMENOrdering Facility: [facility] Address:[address] [place], [place] [address]Performed By: #### 46901-2 ####[facility] LABCLIA [id number] [place], [place] [address]Sjrhauem granulocytes (Bld) [#/Vol]0.16 10*3/uLHigh<0.10 [facility] on above:Order Comment: Specimen Type: BLOOD SPECIMENOrdering Facility: [facility] Address:[address] [place], [place] [address]Performed By: #### 60038-7 ####[facility] LABIA [id number] [place], [place] [address]Kaettcxz granulocytes/100 WBC (Bld)1.9 %NormalTwin City Hospital on above: Order Comment: Specimen Type: BLOOD SPECIMENOrdering Facility: [facility] Address:[address] [place], [place] [address]Performed By: #### 75326- 8 ####[facility] LABCLIA [id number] [place], [place] [address]Sluxuooydei (Bld) [#/Vol]0.84 10*3/uLLow1.00-4.00 [facility] on above:Order Comment: Specimen Type: BLOOD SPECIMENOrdering Facility: [facility] Address:[address] [place], [place] [address]Performed By: #### 04697-9 ####[facility] LABCLIA [id number] [place], [place] [address]Efuiffgdeej/100 WBC (Bld)10.2 %NormalTwin City Hospital on above:Order Comment: Specimen Type: BLOOD SPECIMENOrdering Facility: [facility] Address:[address] [place], [place] [address]Performed By: #### 97378-4 ####[facility] LABCLIA [id number] [place], [place] [address]TBB (RBC) [Entitic mass]29.9 ssSfwsrd37.0-34.0[facility] on above:Order Comment: Specimen Type: BLOOD SPECIMENOrdering Facility: [facility] Address:[address] [place], [place] [address]Performed By: #### 51471-7 ####[facility] LABIA [id number] [place], [place] [address]HCVN (RBC) [Mass/Vol]33.5 g/tOXlphqy97.5-36.0[facility] on above: Order Comment: Specimen Type: BLOOD SPECIMENOrdering Facility: [facility] Address:[address] [place], [place] [address]Performed By: #### 00797- 8 ####[facility] LABCLIA [id number] [place], [place] [address]KVB (RBC) [Entitic vol]89.3 gEPbocax41.0-100.0[facility] on above:Order Comment: Specimen Type: BLOOD SPECIMENOrdering Facility: [facility] Address:[address] [place], [place] [address]Performed By: #### 02576-1 ####[facility] LABIA [id number] [place], [place] [address]Phebhbdrn (Bld) [#/Vol]0.31 10*3/uLNormal<0.87[facility] on above:Order Comment: Specimen Type: BLOOD SPECIMENOrdering Facility: [facility] Address:[address] [place], [place] [address]Performed By: #### 78523- 8 ####[facility] LABCLIA [id number] [place], [place] [address]Uheqczywo/100 WBC (Bld)3.8 %NormalTwin City Hospital on above:Order Comment: Specimen Type: BLOOD SPECIMENOrdering Facility: [facility] Address:[address] [place], [place] [address]Performed By: #### 24228-8 ####[facility] LABCLIA [id number] [place], [place] [address]Apiogvtdwpj (Bld) [#/Vol]6.81 10*3/uLNormal1.45-7.50[facility] on above:Order Comment: Specimen Type: BLOOD SPECIMENOrdering Facility: [facility] Address:[address] [place], [place] [address]Performed By: #### 23465-3 ####[facility] LABCLIA [id number] [place], [place] [address]Kncqgouswkb/100 WBC (Bld)83.0 %NormalTwin City Hospital on above:Order Comment: Specimen Type: BLOOD SPECIMENOrdering Facility: [facility] Address:[address] [place], [place] [address]Performed By: #### 77879-2 ####[facility] LABIA [id number] [place], [place] [address]Hepjdbalw RBC (Bld) [#/Vol] 10*3/uLNormal<0.01[facility] on above:Order Comment: Specimen Type: BLOOD SPECIMENOrdering Facility: [facility] Address:[address] [place], [place] [address]Performed By: #### 15788-2 ####[facility] LABIA [id number] [place], [place] [address]Hmkvpnuqx RBC/100 WBC (Bld) [Ratio]0.0 /100 WBCNormal [facility] on above:Order Comment: Specimen Type: BLOOD SPECIMENOrdering Facility: [facility] Address:[address] [place], [place] [address]Performed By: #### 26487-3 ####[facility] LABCLIA [id number] [place], [place] [address]Ppncakzx mean volume (Bld) [Entitic vol]9.4 fLNormal9.0-12.7CU[facility] on above:Order Comment: Specimen Type: BLOOD SPECIMENOrdering Facility: [facility] Address:[address] [place] [address] Performed By: #### 23264-7 ####[facility] LABCLIA [id number] [place], [place] [address]Qpfygjpif (Bld) [#/Vol]265 10*3/iNInnxhy526-070WqyauxlyoTwin City Hospital on above:Order Comment: Specimen Type: BLOOD SPECIMENOrdering Facility: [facility] Address:[address] [place], [place] [address]Performed By: #### 29281-5 ####[facility] LABCLIA [id number] [place], [place] [address]AXA (Bld) [#/Vol]4.21 10*6/uLNormal4.20-6.00[facility] on above:Order Comment: Specimen Type: BLOOD SPECIMENOrdering Facility: [facility] Address:[address] [place], [place] [address]Performed By: #### 70312-8 ####[facility] LABCLIA [id number] [place], [place] [address]CST (Bld) [#/Vol]8.21 10*3/uLNormal3.70-11.00[facility] on above: Order Comment: Specimen Type: BLOOD SPECIMENOrdering Facility: [facility] Address:[address] [place], [place] [address]Performed By: #### 70494- 8 ####[facility] LABCLIA [id number] [facility] [place] [address]OABSXBlq 77-82-1586ZDPOVWPhxtlvRiezytpxfRegency Hospital Toledo metabolic 2000 panelon 88-71-5115Akdhrln [Mass/Vol]4.7 g/dLNormal 3.9-4.9CU[facility] on above:Order Comment: Specimen Type: BLOOD SPECIMENOrdering Facility: [facility] Address:[address] [place], [place] [address]Performed By: #### 08038-0 ####[facility] LABCLIA [id number] [place], [place] [address]LRV [Catalytic activity/Vol]66 U/DSxleea29-995DqttjvasaTwin City Hospital on above:Order Comment: Specimen Type: BLOOD SPECIMENOrdering Facility: [facility] Address:[address] [place], [place] [address]Performed By: #### 95630-8 ####[facility] LABCLIA [id number] [facility] [place] [address]BZA [Catalytic activity/Vol]35 U/SSjnhva22-84YadwuovviTwin City Hospital on above:Order Comment: Specimen Type: BLOOD SPECIMENOrdering Facility: [facility] Address:[address] [place], [place] [address]Performed By: #### 72142-6 ####[facility] LABCLIA [id number] [place], [place] [address]Odlat gap [Moles/Vol]15 mmol/LNormal8-15[facility] on above:Order Comment: Specimen Type: BLOOD SPECIMENOrdering Facility: [facility] Address:[address] [place], [place] [address]Performed By: #### 68109- 8 ####[facility] LABCLIA [id number] [facility] [place] [address]VTN [Catalytic activity/Vol]21 U/RNqinmk07-55GyngxmkzmTwin City Hospital on above:Order Comment: Specimen Type: BLOOD SPECIMENOrdering Facility: [facility] Address:[address] [place], [place] [address]Performed By: #### 95596-9 ####[facility] LABCLIA [id number] [place], [place] [address]Qjkcyctau [Mass/Vol]0.4 mg/dLNormal0.2-1.3CU[facility] on above:Order Comment: Specimen Type: BLOOD SPECIMENOrdering Facility: [facility] Address:[address] [place], [place] [address]Performed By: #### 65770- 8 ####[facility] LABCLIA [id number] [facility] [place] [address]Muvzrfn [Mass/Vol]9.8 mg/dLNormal8.5-10.2[facility] on above:Order Comment: Specimen Type: BLOOD SPECIMENOrdering Facility: [facility] Address:[address] [place], [place] [address]Performed By: #### 64610-3 ####[facility] LABCLIA [id number] [place], [place] [address]Chixqdcx [Moles/Vol]96 mmol/L Eqv49-276OwlzbtnfzTwin City Hospital on above:Order Comment: Specimen Type: BLOOD SPECIMENOrdering Facility: [facility] Address:[address] [place], [place] [address]Performed By: #### 88673-4 ####[facility] LABIA [id number] [place] [address] CO2 [Moles/Vol]26 mmol/BPlelqk22-79UudlahbcnTwin City Hospital on above: Order Comment: Specimen Type: BLOOD SPECIMENOrdering Facility: [facility] Address:[address] [place] [address], [place] [address]Aaubscifz By: #### 94429- 8 ####[facility] LABCLIA [id number] [place], [place] [address]Frnoexljjn [Mass/Vol]0.76 mg/dLNormal0.73-1.22[facility] on above:Order Comment: Specimen Type: BLOOD SPECIMENOrdering Facility: [facility] Address:[address] [place], [place] [address]Performed By: #### 40354-9 ####[facility] LABCLIA [id number] [place], [place] [address]sZNAaj SerPlBld CKD-EPI 394074 mL/min/1.73m???Normal>=60[facility] on above:Order Comment: Specimen Type: BLOOD SPECIMENOrdering Facility: [facility] Address:[address] [place], [place] [address]Result Comment: Estimated Glomerular Filtration Rate (eGFR) is calculated using the 2020 CKD-EPI creatinine equation. This equation utilizes serum creatinine, sex, and age as parameters. The creatinine assay has traceable calibration to isotope dilution- mass spectrometry. Refer to KDIGO guidelines for clinical interpretation. In patients with unstable renal function, e.g. those with acute kidney injury, the eGFR may not accurately reflect actual GFR.Performed By: #### 73514-3 ####[facility] LABCLIA [id number] [place], [place] [address]Hqrmxvu [Mass/Vol]272 mg/gYNgam11-94VmgdujtblTwin City Hospital on above:Order Comment: Specimen Type: BLOOD SPECIMENOrdering Facility: [facility] Address:[address] [place], [place] [address]Result Comment: The [place] Diabetes Association (ADA) provides guidance for cutoff values for fasting glucose and random glucose. The ADA defines fasting as no caloric intake for at least 8 hours. Fasting plasma glucose results between 100 to 125 mg/dL indicate increased risk for diabetes (prediab etes).Fasting plasma glucose results greater than or equal to 126 mg/dL meet the criteria for diagnosis of diabetes. In the absence of unequivocal hyperglycemia, results should be confirmed by repeattesting. In a patient with classic symptoms of hyperglycemia or hyperglycemic crisis, random plasmaglucose results greater than or equal to 200 mg/dL meet the criteria for diagnosis of diabetes.Reference: Standards of Medical Care in Diabetes 2016, [place] Diabetes Association. Diabetes Care. 2016.39(Suppl 1).Performed By: #### 75933-4 ####[facility] LABCLIA [id number] [place], [place] [address]Etkmhkmbj [Moles/Vol]4.1 mmol/LNormal3.7-5.1CU[facility] on above:Order Comment: Specimen Type: BLOOD SPECIMENOrdering Facility: [facility] Address:[address] [place], [place] [address]Performed By: #### 15727-6 ####[facility] LABIA [id number] [place], [place] [address]Vporoaj [Mass/Vol]7.0 g/dLNormal6.3-8.0[facility] on above:Order Comment: Specimen Type: BLOOD SPECIMENOrdering Facility: [facility] Address:[address] [place], [place] [address]Performed By: #### 68326- 8 ####[facility] LABCLIA [id number] [place], [place] [address]Wytitq [Moles/Vol]137 mmol/XMyiukt927-485ExqqbblmxTwin City Hospital on above:Order Comment: Specimen Type: BLOOD SPECIMENOrdering Facility: [facility] Address:[address] [place], [place] [address]Performed By: #### 71534-2 ####[facility] LABIA [id number] [place], [place] [address]Grvy nitrogen [Mass/Vol]13 mg/dLNormal9-24[facility] on above:Order Comment: Specimen Type: BLOOD SPECIMENOrdering Facility: [facility] Address:[address] [place], [place] [address]Performed By: #### 01744-8 ####[facility] LABCLIA [id number] [place], [place] [address]Pdeymy Arminl-Abhay 24-30-3434Ebavsmxf [Mass/Vol]1.4 ug/dLLow4.8-19.5CTriHealth McCullough-Hyde Memorial HospitalComment on above:Order Comment: Specimen Type: BLOOD SPECIMENOrdering Facility: [facility] Address:[address] [place], [place] [address]Ukmnwb Comment: Provided reference range is from 6-10 AM sample collection time.Cortisol Reference Range: 6-10 AM = 4.8-19.5 ug/dL, 4-8 PM = 2.5-11.9 ug/dLPerformed By: #### 3016-3, 2143-6 ####[facility] LABCLIA [id number] [facility] MEDICAL CENTERGiovanna [facility] [address] [place], [place] [address] [place] AMERICAEosinophils/100 WBC Auto (Bld) Ordered By: Lo Hancock on 48-96-3112Uhbekbwrjmj/100 WBC (Bld)0.6 %[facility] HospitalErythrocyte distribution width Auto (RBC) [Ratio]Ordered By: Lo Hancock on 43-99-0056Aklefhdryzx distribution width (RBC) [Ratio] 16.4 %High11.5-15.0[facility] HospitalGlomerular filtration rate [Volume Rate/Area] in Serum, Plasma or Blood by CreatinineOrdered By: Lo Hancock on 70-78-8129Oiylxguvsm filtration rate [Volume Rate/Area] in Serum, Plasma or Blood by Uxvoidefvv96 mL/min/1.73m???>=60[facility] HospitalComment on above:Estimated Glomerular Filtration Rate (eGFR) is calculated using the 2020 CKD-EPI creatinine equation. This equation utilizes serum creatinine, sex, and age as parameters. The creatinine assay has traceable calibration to isotope dilution-mass spectrometry. Refer to KDIGO guidelines for clinical interpretation. In patients with unstable renal function, e.g. those with acute kidney injury, the eGFRmay not accurately reflect actual GFR.Glucose [Mass/volume] in Serum or PlasmaOrdered By: Lo Hancock on 14-12-2289Ltpflgd [Mass/Vol]272 mg/sJWpvs42-69AhnldzmerOhio State East HospitalComment on above: The [place] Diabetes Association (ADA) provides guidance for cutoff values for fasting glucose andrandom glucose. The ADA defines fasting as no caloric intake for at least 8 hours. Fasting plasma glucose results between 100 to 125 mg/dL indicate increased risk for diabetes (prediabetes).Fasting plasma glucose results greater than or equal to 126 mg/dL meet the criteria for diagnosis of diabetes. In the absence of unequivocal hyperglycemia, results should be confirmed by repeat testing. In a patient with classic symptoms of hyperglycemia or hyperglycemic crisis, random plasma glucose resultsgreater than or equal to 200 mg/dL meet the criteria for diagnosis of diabetes.Reference: Standardsof Medical Care in Diabetes 2016, [place] Diabetes Association. Diabetes Care. 2016.39(Suppl 1).Hematocrit Auto (Bld) [Volume fraction]Ordered By: Lo Hancock on 45-63-9358Hhmpchrfih (Bld) [Volume fraction]37.6 %Low39.0-51.0 [facility] HospitalHemoglobin [Mass/volume] in BloodOrdered By: Lo Hancock on 41-97-7047Kwtzfsuchu (Bld) [Mass/Vol]12.6 g/dLLow13.0-17.0 [facility] HospitalLaboratory - Chemistry and Chemistry - challengeOrdered By: Lo Hancock on 58-40-4037Ziisfrd [Mass/Vol]4.7 g/dL 3.9-4.9[facility] HospitalALP [Catalytic activity/Vol]66 U/L38-113 [facility] HospitalALT [Catalytic activity/Vol]35 U/L10-54 [facility] HospitalAST [Catalytic activity/Vol]21 U/L14-40 [facility] HospitalBilirubin [Mass/Vol]0.4 mg/dL0.2-1.3FSelect Medical Cleveland Clinic Rehabilitation Hospital, Edwin ShawCalcium [Mass/Vol]9.8 mg/dL8.5-10.2FSelect Medical Cleveland Clinic Rehabilitation Hospital, Edwin ShawChloride [Moles/Vol]96 mmol/SBjg92-297ZhyftakedOhio State East HospitalCO2 [Moles/Vol]26 mmol/C09-92PhkucstlzOhio State East HospitalCreatinine [Mass/Vol]0.76 mg/dL0.73-1.22[facility] HospitalPotassium [Moles/Vol]4.1 mmol/L3.7-5.1FUniversity Hospitals Samaritan Medical Centerodium [Moles/Vol] 137 mmol/P415-878IjkqwhmkqOhio State East HospitalTSH Qn0.821 m[IU]/L0.270-4.200 [facility] HospitalUrea nitrogen [Mass/Vol]13 mg/dL9-24[facility] HospitalLaboratory - Hematology and Cell countsOrdered By: Lo Hancock on 55-16-7074Dggprosfqkj (Bld) [#/Vol]0.05 10*3/uL<0.46[facility] HospitalImmature granulocytes (Bld) [#/Vol]0.16 10*3/uLHigh<0.10 [facility] HospitalImmature granulocytes/100 WBC (Bld)1.9 % [facility] HospitalLeukocytes [#/volume] corrected for nucleated erythrocytes in Blood by Automated counOrdered By: Lo Hancock on 12-07-2024 WBC corrected for nucl RBC Auto (Bld) [#/Vol]8.21 k/uL3.70-11.00[facility] HospitalLymphocytes Auto (Bld) [#/Vol]Ordered By: Lo Hancock on 59-46-7525Zgznndwrxza (Bld) [#/Vol]0.84 10*3/uLLow1.00-4.00[facility] HospitalLymphocytes/100 WBC Auto (Bld)Ordered By: Lo Hancock on 68-06-7411Qbenzeqaifz/100 WBC (Bld)10.2 %[facility] MCH Auto (RBC) [Entitic mass]Ordered By: Lo Hancock on 16-27-8241BLL (RBC) [Entitic mass]29.9 pg26.0-34.0[facility] HospitalMCHC Auto (RBC) [Mass/Vol]Ordered By: Lo Hancock on 50-59-2258MUCX (RBC) [Mass/Vol]33.5 g/dL30.5-36.0[facility] HospitalMCV Auto (RBC) [Entitic vol] Ordered By: Lo Hancock on 14-85-9591YWN (RBC) [Entitic vol]89.3 fL 80.0-100.0[facility] HospitalMonocytes Auto (Bld) [#/Vol]Ordered By: Lo Hancock on 35-55-0166Fhcrjhbrx (Bld) [#/Vol]0.31 10*3/uL<0.87 [facility] HospitalMonocytes/100 WBC Auto (Bld)Ordered By: Lo Hancock on 25-99-8164Pzwsubhhc/100 WBC (Bld)3.8 %[facility] HospitalNeutrophils Auto (Bld) [#/Vol]Ordered By: Lo Hancock on 12-07-2024 Neutrophils (Bld) [#/Vol]6.81 10*3/uL1.45-7.50[facility] Neutrophils/100 WBC Auto (Bld)Ordered By: Lo Hancock on 12-07-2024 Neutrophils/100 WBC (Bld)83.0 %[facility] HospitalNucleated RBC Auto (Bld) [#/Vol]Ordered By: Lo Hancock on 93-52-4309Zdckdyxhh RBC (Bld) [#/Vol]10*3/uL<0.01[facility] HospitalNucleated erythrocytes [Presence] in Blood by Automated countOrdered By: Lo Hancock on 12-07-2024 Nucleated RBC Auto Ql (Bld)0.0 /100{WBC}[facility] Platelet mean volume Auto (Bld) [Entitic vol]Ordered By: Lo Hancock on 80-79-1798Wykmwdwp mean volume (Bld) [Entitic vol]9.4 fL9.0-12.7FSelect Medical Cleveland Clinic Rehabilitation Hospital, Edwin ShawPlatelets Auto (Bld) [#/Vol]Ordered By: Lo Hancock on 39-15-8287Nxsavyfzd (Bld) [#/Vol]265 10*3/qT636-165TdrutiryvOhio State East HospitalProtein [Mass/volume] in Serum or PlasmaOrdered By: Lo Hancock on 11-81-6152Nqrtgvr [Mass/Vol]7.0 g/dL6.3-8.0[facility] HospitalRBC Auto (Bld) [#/Vol]Ordered By: Lo Hancock on 53-77-7969HTU (Bld) [#/Vol]4.21 10*6/uL4.20-6.00[facility] Hospitalerum or plasma anion gap determinationOrdered By: Lo Hancock on 44-00-7482Laiei gap [Moles/Vol]15 mmol/L8-15[facility] HospitalTS SerPl-aCncon 02-96-7979WWP Qn 0.821 m[IU]/LNormal0.270-4.200[facility]. [facility] HospitalComment on above:Order Comment: Specimen Type: BLOOD SPECIMENOrdering Facility: [facility] Address:[address] [place], [place] [address]Performed By: #### 3016- 3, 2143-6 ####[facility] LABCLIA [id number] [place] [address] [place] OF AMERICACNOVon 44-49-8527XXVD NormalSt. Elizabeth HospitalBasophils Auto (Bld) [#/Vol]Ordered By: Preston Hernández on 63-17-4189Jojgirzrd (Bld) [#/Vol]0.03 10*3/uL<0.11[facility] HospitalBasophils/100 WBC Auto (Bld)Ordered By: Preston Hernández on 11-23-2024 Basophils/100 WBC (Bld)0.3 %[facility] HospitalBlood manual differential comment interpretation narrativeOrdered By: Preston Hernández on 89-98-8184Tbpqxm differential comment Jean (Bld) [Interp]AutoOhio State East HospitalCB W Auto Differential panel (Bld)on 01-57-0531Lvniurivj (Bld) [#/Vol]0.03 10*3/uLNormal<0.11[facility] on above:Order Comment: Specimen Type: BLOOD SPECIMENOrdering Facility: [facility] Address:[address] [place], [place] [address]Performed By: #### 98830- 8 ####[facility] LABCLIA [id number] [place], [place] [address]Vsbsyozkl/100 WBC (Bld)0.3 %NormalTwin City Hospital on above:Order Comment: Specimen Type: BLOOD SPECIMENOrdering Facility: [facility] Address:[address] [place], [place] [address]Performed By: #### 86321-9 ####[facility] LABCLIA [id number] [place], [place] [address]Yjcgkrkuilgf cell count method Nom (Bld)AutoNormalClevelSelect Medical Specialty Hospital [facility] on above:Order Comment: Specimen Type: BLOOD SPECIMENOrdering Facility: [facility] Address:[address] [place], [place] [address]Performed By: #### 60606-1 ####[facility] LABCLIA [id number] [place], [place] [address]Zcwzkbxaaja (Bld) [#/Vol]0.05 10*3/uLNormal<0.46[facility] on above:Order Comment: Specimen Type: BLOOD SPECIMENOrdering Facility: [facility] Address:[address] [place], [place] [address]Performed By: #### 42603-6 ####[facility] LABCLIA [id number] [place], [place] [address]Lcmfujzfogy/100 WBC (Bld)0.5 %NormalTwin City Hospital on above:Order Comment: Specimen Type: BLOOD SPECIMENOrdering Facility: [facility] Address:[address] [place], [place] [address]Performed By: #### 61280-6 ####[facility] LABCLIA [id number] [place], [place] [address]Vqhdwmjzqno distribution width (RBC) [Ratio]16.3 %High 11.5-15.0[facility] on above:Order Comment: Specimen Type: BLOOD SPECIMENOrdering Facility: [facility] Address:[address] [place], [place] [address]Performed By: #### 11397-9 ####[facility] LABIA [id number] [place] [address] Hematocrit (Bld) [Volume fraction]35.6 %Low39.0-51.0[facility] Comment on above:Order Comment: Specimen Type: BLOOD SPECIMENOrdering Facility: [facility] Address:[address] [place] [address] Performed By: #### 54637-4 ####[facility] LABIA [id number] [place], [place] [address]Jhetswgzkf (Bld) [Mass/Vol]11.8 g/dLLow13.0-17.0[facility] on above:Order Comment: Specimen Type: BLOOD SPECIMENOrdering Facility: [facility] Address:[address] [place], [place] [address]Performed By: #### 52511-8 ####[facility] LABIA [id number] [place], [place] [address]Okgsxxwt granulocytes (Bld) [#/Vol]0.14 10*3/uLHigh<0.10 [facility] on above:Order Comment: Specimen Type: BLOOD SPECIMENOrdering Facility: [facility] Address:[address] [place], [place] [address]Performed By: #### 90746-0 ####[facility] LABIA [id number] [place], [place] [address]Eulbgslx granulocytes/100 WBC (Bld)1.3 %NormalTwin City Hospital on above: Order Comment: Specimen Type: BLOOD SPECIMENOrdering Facility: [facility] Address:[address] [place], [place] [address]Performed By: #### 65490- 8 ####[facility] LABCLIA [id number] [place], [place] [address]Uuajdioursl (Bld) [#/Vol]0.96 10*3/uLLow1.00-4.00 [facility] on above:Order Comment: Specimen Type: BLOOD SPECIMENOrdering Facility: [facility] Address:[address] [place], [place] [address]Performed By: #### 47500-8 ####[facility] LABIA [id number] [place], [place] [address]Truxjwiqquw/100 WBC (Bld)8.7 %NormalTwin City Hospital on above:Order Comment: Specimen Type: BLOOD SPECIMENOrdering Facility: [facility] Address:[address] [place], [place] [address]Performed By: #### 27195-5 ####[facility] LABCLIA [id number] [place], [place] [address]DKT (RBC) [Entitic mass]29.4 anWeoheg10.0-34.0[facility] on above:Order Comment: Specimen Type: BLOOD SPECIMENOrdering Facility: [facility] Address:[address] [place], [place] [address]Performed By: #### 25279-9 ####[facility] LABCLIA [id number] [place], [place] [address]GZOE (RBC) [Mass/Vol]33.1 g/bIDnrcbz46.5-36.0[facility] on above: Order Comment: Specimen Type: BLOOD SPECIMENOrdering Facility: [facility] Address:[address] [place], [place] [address]Performed By: #### 84107- 8 ####[facility] LABCLIA [id number] [place], [place] [address]GBW (RBC) [Entitic vol]88.8 yPZjctel05.0-100.0[facility] on above:Order Comment: Specimen Type: BLOOD SPECIMENOrdering Facility: [facility] Address:[address] [place], [place] [address]Performed By: #### 29168-2 ####[facility] LABIA [id number] [place], [place] [address]Fvomrnucb (Bld) [#/Vol]0.66 10*3/uLNormal<0.87[facility] on above:Order Comment: Specimen Type: BLOOD SPECIMENOrdering Facility: [facility] Address:[address] [place], [place] [address]Performed By: #### 39943- 8 ####[facility] LABIA [id number] [place], [place] [address]Rrzkdmnft/100 WBC (Bld)6.0 %NormalTwin City Hospital on above:Order Comment: Specimen Type: BLOOD SPECIMENOrdering Facility: [facility] Address:[address] [place], [place] [address]Performed By: #### 87431-9 ####[facility] LABIA [id number] [place], [place] [address]Vtnxhjyaqpy (Bld) [#/Vol]9.23 10*3/uLHigh1.45-7.50[facility] on above:Order Comment: Specimen Type: BLOOD SPECIMENOrdering Facility: [facility] Address:[address] [place], [place] [address]Performed By: #### 30692-4 ####[facility] LABIA [id number] [place], [place] [address]Xppwyltznps/100 WBC (Bld)83.2 %NormalTwin City Hospital on above:Order Comment: Specimen Type: BLOOD SPECIMENOrdering Facility: [facility] Address:[address] [place], [place] [address]Performed By: #### 54825-8 ####[facility] LABCLIA [id number] [place], [place] [address]Rzqivvydi RBC (Bld) [#/Vol] 10*3/uLNormal<0.01[facility] on above:Order Comment: Specimen Type: BLOOD SPECIMENOrdering Facility: [facility] Address:[address] [place], [place] [address]Performed By: #### 95406-2 ####[facility] LABCLIA [id number] [place], [place] [address]Xnohmrcrh RBC/100 WBC (Bld) [Ratio]0.0 /100 WBCNormal [facility] on above:Order Comment: Specimen Type: BLOOD SPECIMENOrdering Facility: [facility] Address:[address] [place], [place] [address]Performed By: #### 74784-0 ####[facility] LABCLIA [id number] [place], [place] [address]Cowztogy mean volume (Bld) [Entitic vol]9.6 fLNormal9.0-12.7CU[facility] on above:Order Comment: Specimen Type: BLOOD SPECIMENOrdering Facility: [facility] Address:[address] [place] [address] Performed By: #### 84659-8 ####[facility] LABCLIA [id number] [place], [place] [address]Ktzqgbqam (Bld) [#/Vol]284 10*3/vJApwmku265-629NfrrfhzpoTwin City Hospital on above:Order Comment: Specimen Type: BLOOD SPECIMENOrdering Facility: [facility] Address:[address] [place], [place] [address]Performed By: #### 63496-5 ####[facility] LABCLIA [id number] [place], [place] [address]GEJ (Bld) [#/Vol]4.01 10*6/uLLow4.20-6.00[facility] on above:Order Comment: Specimen Type: BLOOD SPECIMENOrdering Facility: [facility] Address:[address] [place], [place] [address]Performed By: #### 79672-4 ####[facility] LABCLIA [id number] [place], [place] [address]DVU (Bld) [#/Vol]11.07 10*3/uL High3.70-11.00[facility] on above:Order Comment: Specimen Type: BLOOD SPECIMENOrdering Facility: [facility] Address:[address] [place], [place] [address]Performed By: #### 12550-5 ####[facility] LABCLIA [id number] [place] [address] Basophils (Bld) [#/Vol]Normal<0.11[facility] on above: Order Comment: Specimen Type: BLOOD SPECIMENOrdering Facility: [facility] Address:[address] [place], [place] [address]Result Comment: Disregard results. Specimen incorrectly identified.Corrected result: Previously reported as <0.03 k/uL on 11/23/2024 at 2:43 PM EDT.Performed By: #### 55452-6 ####[facility] LABCLIA [id number] [place], [place] [address]Efwkgkqfj/100 WBC (Bld)NormalSt. Elizabeth Hospital Comment on above:Order Comment: Specimen Type: BLOOD SPECIMENOrdering Facility: [facility] Address:[address] [place], [place] [address]Result Comment: Disregard results. Specimen incorrectly identified.Corrected result: Previously reported as 0.6 % on 11/23/2024 at 2:43 PM EDT.Performed By: #### 12233-1 ####[facility] LABCLIA [id number] [place], [place] [address]Rvzbvasflggk cell count method Nom (Bld)AutoNormal St. Elizabeth HospitalComment on above:Order Comment: Specimen Type: BLOOD SPECIMENOrdering Facility: [facility] Address:[address] [place], [place] [address]Performed By: #### 06494-3 ####[facility] LABCLIA [id number] [place], [place] [address]Vgnzmzarbzn (Bld) [#/Vol]Normal<0.46[facility] on above:Order Comment: Specimen Type: BLOOD SPECIMENOrdering Facility: [facility] Address:[address] [place], [place] [address]Result Comment: Disregard results. Specimen incorrectly identified.Corrected result: Previously reported as 0.05 k/uL on 11/23/2024 at 2:43 PM EDT.Performed By: #### 43249-1 ####[facility] LABCLIA [id number] [place], [place] [address]Zllpssiamso/100 WBC (Bld)NormalSt. Elizabeth Hospital Comment on above:Order Comment: Specimen Type: BLOOD SPECIMENOrdering Facility: [facility] Address:[address] [place], [place] [address]Result Comment: Disregard results. Specimen incorrectly identified.Corrected result: Previously reported as 1.5 % on 11/23/2024 at 2:43 PM EDT.Performed By: #### 39539-6 ####[facility] LABCLIA [id number] [place], [place] [address]Frjvrnnsgva distribution width (RBC) [Ratio]Normal 11.5-15.0[facility] on above:Order Comment: Specimen Type: BLOOD SPECIMENOrdering Facility: [facility] Address:[address] [place] [address] Comment: Disregard results. Specimen incorrectly identified.Corrected result: Previously reported as 12.8 % on 11/23/2024 at 2:43 PM EDT.Corrected result: Previously reported as 12.8 % on 11/23/2024 at 3:15 PM EDT.Performed By: #### 27270-3 ####[facility] LABIA [id number] [place] [address] Hematocrit (Bld) [Volume fraction]Tjtolu30.0-51.0[facility] Comment on above:Order Comment: Specimen Type: BLOOD SPECIMENOrdering Facility: [facility] Address:[address] [place] [address] Comment: Disregard results. Specimen incorrectly identified.Corrected result: Previously reported as 37.2 % on 11/23/2024 at 2:43 PM EDT.Corrected result: Previously reported as 37.2 % on 11/23/2024 at 3:15 PM EDT.Performed By: #### 65528-3 ####[facility] LABIA [id number] [place], [place] [address]Xrswtvtjju (Bld) [Mass/Vol]Latzhk77.0-17.0[facility] Centerment on above:Order Comment: Specimen Type: BLOOD SPECIMENOrdering Facility: [facility] Address:[address] [place] [address] Comment: Disregard results. Specimen incorrectly identified.Corrected result: Previously reported as 12.3 g/dL on 11/23/2024 at 2:43 PM EDT.Corrected result: Previously reported as 12.3 g/dL on11/23/2024 at 3:15 PM EDT.Performed By: #### 08142-2 ####[facility] LABIA [id number] [place], [place] [address]Axjdndbu granulocytes (Bld) [#/Vol]Normal<0.10[facility] on above:Order Comment: Specimen Type: BLOOD SPECIMENOrdering Facility: [facility] Address:[address] [place] [address] Comment: Disregard results. Specimen incorrectly identified.Corrected result: Previously reported as 0.08 k/uL on 11/23/2024 at 2:43 PM EDT.Performed By: #### 20120-9 ####[facility] LABCLIA [id number] [place], [place] [address]Pqhtrwle granulocytes/100 WBC (Bld)NormalTwin City Hospital on above:Order Comment: Specimen Type: BLOOD SPECIMENOrdering Facility: [facility] Address:[address] [place] [address] Comment: Disregard results. Specimen incorrectly identified.Corrected result: Previously reported as 2.4 % on 11/23/2024 at 2:43 PM EDT.Performed By: #### 31118-4 ####[facility] LABIA [id number] [place], [place] [address]Nsijoxlanuj (Bld) [#/Vol]Normal 1.00-4.00[facility] on above:Order Comment: Specimen Type: BLOOD SPECIMENOrdering Facility: [facility] Address:[address] [place] [address] Comment: Disregard results. Specimen incorrectly identified.Corrected result: Previously reported as 0.84 k/uL on 11/23/2024 at 2:43 PM EDT.Performed By: #### 85828-8 ####[facility] LABCLIA [id number] [place] [address] Lymphocytes/100 WBC (Bld)NormalTwin City Hospital on above:Order Comment: Specimen Type: BLOOD SPECIMENOrdering Facility: [facility] Address:[address] [place] [address] Comment: Disregard results. Specimen incorrectly identified.Corrected result: Previously reported as 24.7 % on 11/23/2024 at 2:43 PM EDT.Performed By: #### 55884-7 ####[facility] LABCLIA [id number] [place] [address] MCH (RBC) [Entitic mass]Svzhhb59.0-34.0[facility] on above:Order Comment: Specimen Type: BLOOD SPECIMENOrdering Facility: [facility] Address:[address] [place] [address] Comment: Disregard results. Specimen incorrectly identified.Corrected result: Previously reported as 29.7 pg on 11/23/2024 at 2:43 PM EDT.Corrected result: Previously reported as 29.7 pg on 11/23/2024 at 3:15 PM EDT.Performed By: #### 58646-3 ####[facility] LABCLIA [id number] [place], [place] [address]YZZL (RBC) [Mass/Vol]Zkkzpk07.5-36.0[facility] on above:Order Comment: Specimen Type: BLOOD SPECIMENOrdering Facility: [facility] Address:[address] [place] [address] Comment: Disregard results. Specimen incorrectly identified.Corrected result: Previously reported as 33.1 g/dL on 11/23/2024 at 2:43 PM EDT.Corrected result: Previously reported as 33.1 g/dL on11/23/2024 at 3:15 PM EDT.Performed By: #### 56049-0 ####[facility] LABCLIA [id number] [place], [place] [address]UJA (RBC) [Entitic vol] Yrnxeu24.0-100.0[facility] on above:Order Comment: Specimen Type: BLOOD SPECIMENOrdering Facility: [facility] Address:[address] [place] [address] Comment: Disregard results. Specimen incorrectly identified.Corrected result: Previously reported as 89.9 fL on 11/23/2024 at 2:43 PM EDT.Corrected result: Previously reported as 89.9 fL on 11/23/2024 at 3:15 PM EDT.Performed By: #### 08892-3 ####[facility] LABCLIA [id number] [place], [place] [address]Apulmurec (Bld) [#/Vol]Normal<0.87[facility] on above:Order Comment: Specimen Type: BLOOD SPECIMENOrdering Facility: [facility] Address:[address] [place] [address] Comment: Disregard results. Specimen incorrectly identified.Corrected result: Previously reported as 0.38 k/uL on 11/23/2024 at 2:43 PM EDT.Performed By: #### 59540-1 ####[facility] LABCLIA [id number] [place], [place] [address]Djxwuhdey/100 WBC (Bld)NormalSt. Elizabeth Hospital Comment on above:Order Comment: Specimen Type: BLOOD SPECIMENOrdering Facility: [facility] Address:[address] [place] [address] Comment: Disregard results. Specimen incorrectly identified.Corrected result: Previously reported as 11.2 % on 11/23/2024 at 2:43 PM EDT.Performed By: #### 27758-6 ####[facility] LABCLIA [id number] [place], [place] [address]Deqojpumayb (Bld) [#/Vol]Normal1.45-7.50[facility] on above:Order Comment: Specimen Type: BLOOD SPECIMENOrdering Facility: [facility] Address:[address] [place] [address] Comment: Disregard results. Specimen incorrectly identified.Corrected result: Previously reported as 2.03 k/uL on 11/23/2024 at 2:43 PM EDT.Performed By: #### 14540-1 ####[facility] LABCLIA [id number] [place], [place] [address]Lafqydspxdw/100 WBC (Bld)NormalTwin City Hospital on above:Order Comment: Specimen Type: BLOOD SPECIMENOrdering Facility: [facility] Address:[address] [place] [address] Comment: Disregard results. Specimen incorrectly identified.Corrected result: Previously reported as 59.6 % on 11/23/2024 at 2:43 PM EDT.Performed By: #### 26818-9 ####[facility] LABCLIA [id number] [place], [place] [address]Evbxewwb mean volume (Bld) [Entitic vol]Normal9.0-12.7[facility] on above:Order Comment: Specimen Type: BLOOD SPECIMENOrdering Facility: [facility] Address:[address] [place] [address] Comment: Disregard results. Specimen incorrectly identified.Corrected result: Previously reported as 11.4 fL on 11/23/2024 at 2:43 PM EDT.Corrected result: Previously reported as 11.4 fL on 11/23/2024 at 3:15 PM EDT.Performed By: #### 71634-1 ####[facility] LABCLIA [id number] [place], [place] [address]Xhfeafmbb (Bld) [#/Vol]Gcphil581-028RexxgdljrTwin City Hospital on above:Order Comment: Specimen Type: BLOOD SPECIMENOrdering Facility: [facility] Address:[address] [place] [address] Comment: Disregard results. Specimen incorrectly identified.Corrected result: Previously reported as 169 k/uL on 11/23/2024 at 2:43 PM EDT.Corrected result: Previously reported as 169 k/uL on 11/23/2024 at 3:15 PM EDT.Performed By: #### 04820-1 ####[facility] LABCLIA [id number] [place], [place] [address]RSR (Bld) [#/Vol]Normal 4.20-6.00[facility] on above:Order Comment: Specimen Type: BLOOD SPECIMENOrdering Facility: [facility] Address:[address] [place] [address] Comment: Disregard results. Specimen incorrectly identified.Corrected result: Previously reported as 4.14 m/uL on 11/23/2024 at 2:43 PM EDT.Corrected result: Previously reported as 4.14 m/uL on 11/23/2024 at 3:15 PM EDT.Performed By: #### 33526-2 ####[facility] LABCLIA [id number] [place], [place] [address]AWH (Bld) [#/Vol]Normal3.70-11.00[facility] on above:Order Comment: Specimen Type: BLOOD SPECIMENOrdering Facility: [facility] Address:[address] [place], [place] [address]Result Comment: Disregard results. Specimen incorrectly identified.Corrected result: Previously reported as 3.40 k/uL on 11/23/2024 at 2:43 PM EDT.Corrected result: Previously reported as 3.40 k/uL on11/23/2024 at 3:15 PM EDT.Performed By: #### 92624-9 ####[facility] LABCLIA [id number] [place], [place] [address]SGHKOTub 34-15-7352PRKBMIXqjvnrHxpmchqiuRegency Hospital Toledo metabolic 2000 panelon 72-64-5687Kjibbao [Mass/Vol]4.5 g/dLNormal 3.9-4.9[facility] on above:Order Comment: Specimen Type: BLOOD SPECIMENOrdering Facility: [facility] Address:[address] [place], [place] [address]Performed By: #### 88570-9 ####[facility] LABCLIA [id number] [place], [place] [address]OHN [Catalytic activity/Vol]55 U/CYehqna75-842FkoghyxzgTwin City Hospital on above:Order Comment: Specimen Type: BLOOD SPECIMENOrdering Facility: [facility] Address:[address] [place], [place] [address]Performed By: #### 96409-9 ####[facility] LABCLIA [id number] [place], [place] [address]TSB [Catalytic activity/Vol]30 U/SLgxibf33-96NkazhbqwiTwin City Hospital on above:Order Comment: Specimen Type: BLOOD SPECIMENOrdering Facility: [facility] Address:[address] [place], [place] [address]Performed By: #### 03677-4 ####[facility] LABCLIA [id number] ERNIE JOCELYNDIGN[address] [facility] [address] JO[facility] [place] [place] [address]Sepwo gap [Moles/Vol]11 mmol/LNormal8-15[facility] on above:Order Comment: Specimen Type: BLOOD SPECIMENOrdering Facility: [facility] Address:[address] [place], [place] [address]Performed By: #### [id number]- 8 ####[facility] LABCLIA [id number] [facility] [place], [place] [address]UOI [Catalytic activity/Vol]17 U/XZhfych49-64DstnuronmTwin City Hospital on above:Order Comment: Specimen Type: BLOOD SPECIMENOrdering Facility: [facility] Address:[address] [place], [place] [address]Performed By: #### 48704-0 ####[facility] LABCLIA [id number] ERNIE JEROMERENECENTRAL [place], [place] [address]Jrhusjsae [Mass/Vol]0.3 mg/dLNormal0.2-1.3CUpper [facility] on above:Order Comment: Specimen Type: BLOOD SPECIMENOrdering Facility: [facility] Address:[address] [place], [place] [address]Performed By: #### 93734- 8 ####[facility] LABCLIA [id number] [facility] [place], [place] [address]Qtefgjz [Mass/Vol]8.9 mg/dLNormal8.5-10.2CU[facility] on above:Order Comment: Specimen Type: BLOOD SPECIMENOrdering Facility: [facility] Address:[address] [place], [place] [address]Performed By: #### 19097-4 ####[facility] LABCLIA [id number] [place], [place] [address]Centvffu [Moles/Vol]102 mmol/L Tuwkyw90-832AavsbhmbjTwin City Hospital on above:Order Comment: Specimen Type: BLOOD SPECIMENOrdering Facility: [facility] Address:[address] [place], [place] [address]Performed By: #### 94192-0 ####[facility] LABCLIA [id number] [place] [address] CO2 [Moles/Vol]27 mmol/SBlpohf22-92HykjbwnksTwin City Hospital on above: Order Comment: Specimen Type: BLOOD SPECIMENOrdering Facility: [facility] Address:[address] [place], [place] [address]Performed By: #### 43432- 8 ####[facility] LABCLIA [id number] [place], [place] [address]Xgfeenrpql [Mass/Vol]0.67 mg/dLLow0.73-1.22[facility] on above:Order Comment: Specimen Type: BLOOD SPECIMENOrdering Facility: [facility] Address:[address] [place], [place] [address]Performed By: #### 80434-6 ####[facility] LABCLIA [id number] [place], [place] [address]lBNRpa SerPlBld CKD-EPI [id number] mL/min/1.73m???Normal>=60[facility] on above:Order Comment: Specimen Type: BLOOD SPECIMENOrdering Facility: [facility] Address:[address] [place] [address]Uwimgp Comment: Estimated Glomerular Filtration Rate (eGFR) is calculated using the 2020 CKD-EPI creatinine equation. This equation utilizes serum creatinine, sex, and age as parameters. The creatinine assay has traceable calibration to isotope dilution- mass spectrometry. Refer to KDIGO guidelines for clinical interpretation. In patients with unstable renal function, e.g. those with acute kidney injury, the eGFR may not accurately reflect actual GFR.Performed By: #### 31061-3 ####[facility] LABCLIA [id number] [place], [place] [address]Seotwbi [Mass/Vol]125 mg/sGYgqw67-51JmuxhdcxpTwin City Hospital on above:Order Comment: Specimen Type: BLOOD SPECIMENOrdering Facility: [facility] Address:[address] [place] [address]Scszrx Comment: The [place] Diabetes Association (ADA) provides guidance for cutoff values for fasting glucose and random glucose. The ADA defines fasting as no caloric intake for at least 8 hours. Fasting plasma glucose results between 100 to 125 mg/dL indicate increased risk for diabetes (prediab etes).Fasting plasma glucose results greater than or equal to 126 mg/dL meet the criteria for diagnosis of diabetes. In the absence of unequivocal hyperglycemia, results should be confirmed by repeattesting. In a patient with classic symptoms of hyperglycemia or hyperglycemic crisis, random plasmaglucose results greater than or equal to 200 mg/dL meet the criteria for diagnosis of diabetes.Reference: Standards of Medical Care in Diabetes 2016, [place] Diabetes Association. Diabetes Care. 2016.39(Suppl 1).Performed By: #### 24262-4 ####[facility] LABCLIA [id number] [place], [place] [address]Xywqtnqtt [Moles/Vol]4.1 mmol/LNormal3.7-5.1CUpper [facility] on above:Order Comment: Specimen Type: BLOOD SPECIMENOrdering Facility: [facility] Address:[address] [place] [address]Yypgqnvsp By: #### 27851-9 ####[facility] LABCLIA [id number] [place], [place] [address]Fggbjww [Mass/Vol]6.5 g/dLNormal6.3-8.0[facility] on above:Order Comment: Specimen Type: BLOOD SPECIMENOrdering Facility: [facility] Address:[address] [place] [address]Ybckfylcc By: #### 60623- 8 ####[facility] LABCLIA [id number] [place], [place] [address]Dkburr [Moles/Vol]140 mmol/VShxwdt773-927MlbmruxftTwin City Hospital on above:Order Comment: Specimen Type: BLOOD SPECIMENOrdering Facility: [facility] Address:[address] [place] [address] 595[address]Xfiyggsju By: #### 26278-0 ####[facility] LABCLIA [id number] [place], [place] [address]Mvdl nitrogen [Mass/Vol]17 mg/dLNormal9-24[facility] on above:Order Comment: Specimen Type: BLOOD SPECIMENOrdering Facility: [facility] Address:[address] [place], [place] [address]Performed By: #### 77976-7 ####[facility] LABCLIA [id number] [place], [place] [address]Nzlttc SerPl-mCncon 03-24-1719Sqegifjl [Mass/Vol]2.7 ug/dLLow4.8-19.5CUpper [facility] on above:Order Comment: Specimen Type: BLOOD SPECIMENOrdering Facility: [facility] Address:[address] [place], [place] [address]Result Comment: Provided reference range is from 6-10 AM sample collection time.Cortisol Reference Range: 6-10 AM = 4.8-19.5 ug/dL, 4-8 PM = 2.5-11.9 ug/dLPerformed By: #### 3016-3, 2143-6 ####[facility] LABCLIA [id number] [facility] [id number] [place], [place] [id number] [place] OF AMERICAEosinophils/100 WBC Auto (Bld) Ordered By: Preston Hernández on 64-96-6081Zwwxuqkyyhi/100 WBC (Bld)0.5 %[facility] HospitalErythrocyte distribution width Auto (RBC) [Ratio]Ordered By: Preston Hernández on 98-73-3305Mayejmqmyxe distribution width (RBC) [Ratio]16.3 % High11.5-15.0[facility] HospitalGlomerular filtration rate [Volume Rate/Area] in Serum, Plasma or Blood by CreatinineOrdered By: Lo Hancock on 38-96-5267Txwggcmfuy filtration rate [Volume Rate/Area] in Serum, Plasma or Blood by Qxudxokmzj887 mL/min/1.73m???>=60[facility] Comment on above:Estimated Glomerular Filtration Rate (eGFR) is calculated using the 2020 CKD-EPI creatinine equation. This equation utilizes serum creatinine, sex, and age as parameters. The creatinine assay has traceable calibration to isotope dilution-mass spectrometry. Refer to KDIGO guidelines for clinical inte rpretation. In patients with unstable renal function, e.g. those with acute kidney injury, the eGFRmay not accurately reflect actual GFR.Hematocrit Auto (Bld) [Volume fraction]Ordered By: Preston Hernández on 60-76-8225Aldnqccset (Bld) [Volume fraction]35.6 %Low39.0-51.0[facility] HospitalHemoglobin [Mass/volume] in BloodOrdered By: Preston Hernández on 26-07-2201Kehetmbkrz (Bld) [Mass/Vol]11.8 g/dLLow13.0-17.0[facility] HospitalLaboratory - Chemistry and Chemistry - challengeOrdered By: Lo Hancock on 11-23-2024 Albumin [Mass/Vol]4.5 g/dL3.9-4.9[facility] HospitalALP [Catalytic activity/Vol]55 U/K89-936RtdznogmrOhio State East HospitalALT [Catalytic activity/Vol]30 U/P12-30QcjzywxbnOhio State East HospitalAST [Catalytic activity/Vol]17 U/E97-19SxtzvvplnOhio State East HospitalBilirubin [Mass/Vol]0.3 mg/dL0.2-1.3FSelect Medical Cleveland Clinic Rehabilitation Hospital, Edwin ShawCalcium [Mass/Vol]8.9 mg/dL 8.5-10.2FSelect Medical Cleveland Clinic Rehabilitation Hospital, Edwin ShawChloride [Moles/Vol]102 mmol/L98-107 [facility] HospitalCO2 [Moles/Vol]27 mmol/J87-05ZdpljajgfOhio State East HospitalCreatinine [Mass/Vol]0.67 mg/dLLow0.73-1.22[facility] HospitalGlucose [Mass/Vol]125 mg/kJHayr15-80ZwhlircezOhio State East HospitalComment on above:The [place] Diabetes Association (ADA) provides guidance for cutoff values for fasting glucose andrandom glucose. The ADA defines fasting as no caloric intake for at least 8 hours. Fasting plasma glucose results between 100 to 125 mg/dL indicate increased risk for diabetes (prediabetes).Fasting plasma glucose results greater than or equal to 126 mg/dL meet the criteria for diagnosis of diabetes. In the absence of unequivocal hyperglycemia, results should be confirmed by repeat testing. In a patient with classic symptoms of hyperglycemia or hyperglycemic crisis, random plasma glucose resultsgreater than or equal to 200 mg/dL meet the criteria for diagnosis of diabetes.Reference: Standardsof Medical Care in Diabetes 2016, [place] Diabetes Association. Diabetes Care. 2016.39(Suppl 1).Potassium [Moles/Vol]4.1 mmol/L 3.7-5.1FUniversity Hospitals Samaritan Medical Centerodium [Moles/Vol]140 mmol/P210-378 [facility] HospitalUrea nitrogen [Mass/Vol]17 mg/dL9-24[facility] HospitalTSH Qn0.129 m[IU]/LLow0.270-4.200[facility] HospitalLaboratory - Hematology and Cell countsOrdered By: Preston Hernández on 15-89-0306Ndllissckyj (Bld) [#/Vol]0.05 10*3/uL<0.46[facility] HospitalImmature granulocytes (Bld) [#/Vol]0.14 10*3/uLHigh<0.10[facility] HospitalImtenet [address] [place] granulocytes/100 WBC (Bld)1.3 %[facility] HospitalLeukocytes [#/volume] corrected for nucleated erythrocytes in Blood by Automated counOrdered By: Preston Hernández on 56-59-8309CCA corrected for nucl RBC Auto (Bld) [#/Vol]11.07 k/uLHigh3.70-11.00[facility] HospitalLymphocytes Auto (Bld) [#/Vol]Ordered By: Preston Hernández on 11-23-2024 Lymphocytes (Bld) [#/Vol]0.96 10*3/uLLow1.00-4.00[facility] HospitalLymphocytes/100 WBC Auto (Bld)Ordered By: Preston Hernández on 11-23-2024 Lymphocytes/100 WBC (Bld)8.7 %[facility] HospitalMCH Auto (RBC) [Entitic mass]Ordered By: Preston Hernández on 33-98-1597GBD (RBC) [Entitic mass]29.4 pg26.0-34.0[facility] HospitalMCHC Auto (RBC) [Mass/Vol]Ordered By: Preston Hernández on 89-56-9790YXPV (RBC) [Mass/Vol]33.1 g/dL30.5-36.0[facility] HospitalMCV Auto (RBC) [Entitic vol]Ordered By: Preston Hernández on 14-11-4337IUT (RBC) [Entitic vol]88.8 fL80.0-100.0[facility] HospitalMonocytes Auto (Bld) [#/Vol]Ordered By: Preston Hernández on 71-06-9737Jergmqros (Bld) [#/Vol]0.66 10*3/uL<0.87[facility] HospitalMonocytes/100 WBC Auto (Bld)Ordered By: Preston Hernández on 77-85-5672Ibqnxejay/100 WBC (Bld)6.0 % [facility] HospitalNeutrophils Auto (Bld) [#/Vol]Ordered By: Preston Hernández on 15-77-5704Bvmfskzyvza (Bld) [#/Vol]9.23 10*3/uLHigh1.45-7.50 [facility] HospitalNeutrophils/100 WBC Auto (Bld)Ordered By: Preston Hernández on 44-25-9668Ceuozvisgxl/100 WBC (Bld)83.2 %[facility] HospitalNucleated RBC Auto (Bld) [#/Vol]Ordered By: Preston Hernández on 21-33-9410Nmtocsvkb RBC (Bld) [#/Vol]10*3/uL<0.01[facility] HospitalNucleated erythrocytes [Presence] in Blood by Automated countOrdered By: Preston Hernández on 50-00-4744Smjvimvjq RBC Auto Ql (Bld)0.0 /100{WBC}[facility] HospitalPlatelet mean volume Auto (Bld) [Entitic vol]Ordered By: Preston Hernández on 29-48-2740Cxhbisjh mean volume (Bld) [Entitic vol]9.6 fL9.0-12.7 [facility] HospitalPlatelets Auto (Bld) [#/Vol]Ordered By: Preston Hernández on 37-93-2991Puaufdnpj (Bld) [#/Vol]284 10*3/hD543-462FzmwagesdOhio State East HospitalProtein [Mass/volume] in Serum or PlasmaOrdered By: Lo Hancock on 76-20-8797Tefrrna [Mass/Vol]6.5 g/dL6.3-8.0[facility] HospitalRBC Auto (Bld) [#/Vol]Ordered By: Preston Hernández on 08-40-7322AWS (Bld) [#/Vol]4.01 10*6/uLLow4.20-6.00[facility]erry Hospitalerum or plasma anion gap determinationOrdered By: Lo Hancock on 25-41-5491Yjlzk gap [Moles/Vol]11 mmol/L8-15[facility] HospitalTS SerPl-aCncon 93-61-8171LVT Qn0.129 m[IU]/LLow0.270-4.200St. Elizabeth HospitalCommymichigan medical center west branch on above:Order Comment: Specimen Type: BLOOD SPECIMENOrdering Facility: [facility] Address:[address] [place], [place] [address]Performed By: #### 3016-3, 2143-6 ####[facility] LABCLIA [id number] [place] [address] [place] OF AMERICAMR HIP RIGHT WO IV CONTRASTon 01-98-5010WW HIP RIGHT WO IV CONTRASTEXAMINATION/TECHNIQUE: MR HIP RIGHT WO IV CONTRAST History: Chronic right hip pain. Trochanteric bursitis. Comparison: MRI 08/09/2023. RESULT: RIGHT HIP JOINT: No distinct measurable full-thickness chondral defect. Probable areas of partial-thickness chondral loss. Degenerative signal in the labrum. No evidence for fracture. No joint effusion. LEFT HIP JOINT: Large mknqc-vl-mrbb with degenerative changes. SI JOINTS: Unremarkable. PUBIC SYMPHYSIS: Unremarkable. BONE MARROW: There is no evidence of fracture, bone bruise, marrow replacing lesion or osteonecrosis. TENDONS: Chronic appearing tearing involving the right gluteus minimus, similar to prior. Other visualized tendons about the right hip appear grossly intact. No significant fluid at the right trochanteric bursa. Trace fluid left trochanteric bursal region. MUSCLE: Muscle bulk and signal intensity are within normal limits. NERVES: The visualized portions of the lumbosacral plexus and sciatic nerves appear to be within normal limits. VISCERAL PELVIS: Limited evaluation. Small bladder diverticulum. Small fat- containing right inguinal hernia. Colonic diverticulosis. LOWER LUMBAR SPINE: Limited evaluation with degenerative changes. OTHER: No other significant abnormality. IMPRESSION: Degenerative changes as discussed. No significant right trochanteric bursitis. ELECTRONICALLY SIGNED BY: Ericka CrawfordNot AvailableCNOVon 11-16-[address] Vincent Medical CentervelandBasophils Auto (Bld) [#/Vol]Ordered By: Lo Hancock on 49-12-0325Byvsdjkiu (Bld) [#/Vol]0.04 10*3/uL<0.11[facility] HospitalBasophils/100 WBC Auto (Bld)Ordered By: Lo Hancock on 56-48-7349Wrblfhwmq/100 WBC (Bld)0.2 %[facility] HospitalBlood manual differential comment interpretation narrativeOrdered By: Lo Hancock on 64-75-7803Wgiqks differential comment Jean (Bld) [Interp]AutoOhio State East HospitalCB W Auto Differential panel (Bld)on 69-33-7340Uaqcweuri (Bld) [#/Vol]0.04 10*3/uLNINFSelect Medical Cleveland Clinic Rehabilitation Hospital, Edwin ShawBasophils/100 WBC (Bld)0.2 % [facility], Edwin ShawDifferential cell count method Nom (Bld)AutoCNorwalk Memorial Hospital Eosinophils (Bld) [#/Vol]NINFCNorwalk Memorial HospitalEosinophils/100 WBC (Bld)0.0 % [facility], Edwin ShawErythrocyte distribution width (RBC) [Ratio]14.9 %11.5 - 15.0 % [facility], Edwin ShawHematocrit (Bld) [Volume fraction]36.8 %Low39.0 - 51.0 % [facility] Hospital, Edwin ShawHemoglobin (Bld) [Mass/Vol]12.4 g/dLLow13.0 - 17.0 g/dLSelect Medical Cleveland Clinic Rehabilitation Hospital, Edwin ShawImmature granulocytes (Bld) [#/Vol]0.32 10*3/uLHighNINFSelect Medical [facility] Shaw Immature granulocytes/100 WBC (Bld)1.3 %[facility], Edwin ShawInterpretation and review of laboratory resultsAbnormalCleveland ClinicLymphocytes (Bld) [#/Vol] 1.47 10*3/uLSelect Medical Cleveland Clinic Rehabilitation Hospital, Edwin ShawLymphocytes/100 WBC (Bld)6.0 %[facility]inity Health SystemH (RBC) [Entitic mass]29.4 pg26.0 - 34.0 pgCAultman Orrville HospitalHC (RBC) [Mass/Vol] 33.7 g/dL30.5 - 36.0 g/dLTrinity Health SystemV (RBC) [Entitic vol]87.2 fL80.0 - 100.0 fLCNorwalk Memorial HospitalMonocytes (Bld) [#/Vol]0.89 10*3/uLHighNIBlanchard Valley Health System Bluffton HospitalMonocytes/100 WBC (Bld)3.6 %[facility] Hospital, Edwin ShawNeutrophils (Bld) [#/Vol]21.70 10*3/uLHighSelect Medical Cleveland Clinic Rehabilitation Hospital, Edwin ShawNeutrophils/100 WBC (Bld)88.9 %[facility] Nucleated RBC (Bld) [#/Vol]NINFCleveland ClinicNucleated RBC/100 WBC (Bld) [Ratio]0.0 %/100 WBCSelect Medical Cleveland Clinic Rehabilitation Hospital, Edwin ShawPlatelet mean volume (Bld) [Entitic vol]9.7 fL9.0 - 12.7 fLCNorwalk Memorial HospitalPlatelets (Bld) [#/Vol]296 10*3/uLSelect Medical Cleveland Clinic Rehabilitation Hospital, Edwin ShawRBC (Bld) [#/Vol]4.22 10*6/uL4.20 - 6.00 m/[facility] SystemWBC (Bld) [#/Vol]24.43 10*3/uLHighWooster Community Hospital ClinicBasophils (Bld) [#/Vol] 0.04 10*3/uLNormal<0.11CUpper [facility] Center on above:Order Comment: Specimen Type: BLOOD SPECIMENOrdering Facility: [facility] Address:[address] [place], [place] [address]Performed By: #### 52797-3 ####[facility] LABCLIA [id number] [place], [place] [address]Xuljvcnsz/100 WBC (Bld)0.2 %NormalTwin City Hospital on above:Order Comment: Specimen Type: BLOOD SPECIMENOrdering Facility: [facility] Address:[address] [place], [place] [address]Performed By: #### 83383-7 ####[facility] LABCLIA [id number] [place], [place] [address]Wguqesddwzse cell count method Nom (Bld)AutoNormalCUpper Valley Medical Center on above:Order Comment: Specimen Type: BLOOD SPECIMENOrdering Facility: [facility] Address:[address] [place], [place] [address]Performed By: #### 60412-5 ####[facility] LABCLIA [id number] [place], [place] [address]Lhgggpsyeci (Bld) [#/Vol]10*3/uLNormal<0.46[facility] on above:Order Comment: Specimen Type: BLOOD SPECIMENOrdering Facility: [facility] Address:[address] [place], [place] [address]Performed By: #### 27959-9 ####[facility] LABCLIA [id number] [place], [place] [address]Tgrxxpgyztm/100 WBC (Bld)0.0 %NormalTwin City Hospital on above:Order Comment: Specimen Type: BLOOD SPECIMENOrdering Facility: [facility] Address:[address] [place], [place] [address]Performed By: #### 27900-6 ####[facility] LABCLIA [id number] [place], [place] [address]Mhdpsknurwr distribution width (RBC) [Ratio]14.9 %Normal 11.5-15.0[facility] on above:Order Comment: Specimen Type: BLOOD SPECIMENOrdering Facility: [facility] Address:[address] [place], [place] [address]Performed By: #### 34918-7 ####[facility] LABIA [id number] [place] [address] Hematocrit (Bld) [Volume fraction]36.8 %Low39.0-51.0[facility] Comment on above:Order Comment: Specimen Type: BLOOD SPECIMENOrdering Facility: [facility] Address:[address] [place] [address] Performed By: #### 80434-0 ####[facility] LABIA [id number] [place], [place] [address]Idrnjfvhtg (Bld) [Mass/Vol]12.4 g/dLLow13.0-17.0[facility] on above:Order Comment: Specimen Type: BLOOD SPECIMENOrdering Facility: [facility] Address:[address] [place], [place] [address]Performed By: #### 54092-8 ####[facility] LABIA [id number] [place], [place] [address]Yegbtdtd granulocytes (Bld) [#/Vol]0.32 10*3/uLHigh<0.10 [facility] on above:Order Comment: Specimen Type: BLOOD SPECIMENOrdering Facility: [facility] Address:[address] [place], [place] [address]Performed By: #### 05839-5 ####[facility] LABIA [id number] [place], [place] [address]Ykxavyxw granulocytes/100 WBC (Bld)1.3 %NormalTwin City Hospital on above: Order Comment: Specimen Type: BLOOD SPECIMENOrdering Facility: [facility] Address:[address] [place], [place] [address]Performed By: #### 73790- 8 ####[facility] LABCLIA [id number] [place], [place] [address]Jrodbhajsph (Bld) [#/Vol]1.47 10*3/uLNormal1.00-4.00 [facility] on above:Order Comment: Specimen Type: BLOOD SPECIMENOrdering Facility: [facility] Address:[address] [place], [place] [address]Performed By: #### 43393-1 ####[facility] LABIA [id number] [place], [place] [address]Ojivfnjphiw/100 WBC (Bld)6.0 %NormalTwin City Hospital on above:Order Comment: Specimen Type: BLOOD SPECIMENOrdering Facility: [facility] Address:[address] [place], [place] [address]Performed By: #### 34597-8 ####[facility] LABIA [id number] [place], [place] [address]BQO (RBC) [Entitic mass]29.4 gqFtbxtc91.0-34.0[facility] on above:Order Comment: Specimen Type: BLOOD SPECIMENOrdering Facility: [facility] Address:[address] [place], [place] [address]Performed By: #### 51826-3 ####[facility] LABIA [id number] [place], [place] [address]HTIX (RBC) [Mass/Vol]33.7 g/zAThjlrj84.5-36.0[facility] on above: Order Comment: Specimen Type: BLOOD SPECIMENOrdering Facility: [facility] Address:[address] [place], [place] [address]Performed By: #### 44455- 8 ####[facility] LABCLIA [id number] [place], [place] [address]VHE (RBC) [Entitic vol]87.2 eTKiebkt04.0-100.0[facility] on above:Order Comment: Specimen Type: BLOOD SPECIMENOrdering Facility: [facility] Address:[address] [place], [place] [address]Performed By: #### 55784-6 ####[facility] LABCLIA [id number] [place], [place] [address]Qbrgzbupy (Bld) [#/Vol]0.89 10*3/uLHigh<0.87[facility] on above:Order Comment: Specimen Type: BLOOD SPECIMENOrdering Facility: [facility] Address:[address] [place], [place] [address]Performed By: #### 94925- 8 ####[facility] LABCLIA [id number] [place], [place] [address]Vzfqbhvak/100 WBC (Bld)3.6 %NormalTwin City Hospital on above:Order Comment: Specimen Type: BLOOD SPECIMENOrdering Facility: [facility] Address:[address] [place], [place] [address]Performed By: #### 81158-5 ####[facility] LABCLIA [id number] [place], [place] [address]Egthjdfoebu (Bld) [#/Vol]21.70 10*3/uLHigh1.45-7.50[facility] on above:Order Comment: Specimen Type: BLOOD SPECIMENOrdering Facility: [facility] Address:[address] [place], [place] [address]Performed By: #### 40135-3 ####[facility] LABCLIA [id number] [place], [place] [address]Bznpvzwipex/100 WBC (Bld)88.9 %NormalTwin City Hospital on above:Order Comment: Specimen Type: BLOOD SPECIMENOrdering Facility: [facility] Address:[address] [place], [place] [address]Performed By: #### 41766-2 ####[facility] LABCLIA [id number] [place], [place] [address]Ytpuqwxoq RBC (Bld) [#/Vol] 10*3/uLNormal<0.01[facility] on above:Order Comment: Specimen Type: BLOOD SPECIMENOrdering Facility: [facility] Address:[address] [place], [place] [address]Performed By: #### 26516-9 ####[facility] LABCLIA [id number] [place], [place] [address]Ybdnclvzc RBC/100 WBC (Bld) [Ratio]0.0 /100 WBCNormal [facility] on above:Order Comment: Specimen Type: BLOOD SPECIMENOrdering Facility: [facility] Address:[address] [place], [place] [address]Performed By: #### 01242-1 ####[facility] LABIA [id number] [place], [place] [address]Danacxln mean volume (Bld) [Entitic vol]9.7 fLNormal9.0-12.7CU[facility] on above:Order Comment: Specimen Type: BLOOD SPECIMENOrdering Facility: [facility] Address:[address] [place] [address] Performed By: #### 61443-4 ####[facility] LABIA [id number] [place], [place] [address]Tijhbwphm (Bld) [#/Vol]296 10*3/jMShmjwn592-867EfvdzqygxTwin City Hospital on above:Order Comment: Specimen Type: BLOOD SPECIMENOrdering Facility: [facility] Address:[address] [place], [place] [address]Performed By: #### [id number] ####[facility] LABCLIA [id number] [place], [place] [address]YTN (Bld) [#/Vol]4.22 10*6/uLNormal4.20-6.00[facility] on above:Order Comment: Specimen Type: BLOOD SPECIMENOrdering Facility: [facility] Address:[address] [place] [id number] By: #### [id number] ####[facility] [facility] LABCLIA [id number] [place], [place] [address]IFQ (Bld) [#/Vol]24.43 10*3/uLHigh3.70-11.00[facility] on above: Order Comment: Specimen Type: BLOOD SPECIMENOrdering Facility: [facility] Address:[address] [place] [address]Qaxhqqmrm By: #### 49505- 8 ####[facility] LABCLIA [id number] [place], [place] [address]WWLUYEbp 83-15-4279NVSNWBUcudfvRtexydggp [facility] [place] CNPNon 71-97-0285SCOXTobpctGfqqkppbd Clinic ClevelandCORTISOL, SERUMon 46-08-2209Vlpteuau [Mass/Vol]2.2 ug/dLLow4.8 - 19.5 ug/dLBlanchard Valley Health System [facility] on above:Provided reference range is from 6-10 AM sample collection time. Cortisol Reference Range: 6-10 AM = 4.8-19.5 ug/dL, 4-8 PM = 2.5-11.9 ug/dL Comprehensive metabolic 2000 panelon 41-53-4798Dsrtlko [Mass/Vol]4.3 g/dL3.9 - 4.9 g/dLWeirsdale ClinicALP [Catalytic activity/Vol]63 U/L38 - 113 U/LCleveland ClinicALT [Catalytic activity/Vol]35 U/L10 - 54 U/LCleveland ClinicAnion gap [Moles/Vol]13 mmol/L8 - 15 mmol/LCleveland ClinicAST [Catalytic activity/Vol]26 U/L14 - 40 U/LCleveland ClinicBilirubin [Mass/Vol]0.2 mg/dL0.2 - 1.3 mg/dL Low ClinicCalcium [Mass/Vol]9.3 mg/dL8.5 - 10.2 mg/dLSelect Medical [facility] Chloride [Moles/Vol]102 mmol/L98 - 107 mmol/LCleveland ClinicCO2 [Moles/Vol]27 mmol/L22 - 30 mmol/LCleveland ClinicCreatinine [Mass/Vol]0.76 mg/dL0.73 - 1.22 mg/dLWeirsdale ClinicGFR/1.73 sq M.predicted among non-blacks MDRD (S/P/Bld) [Vol rate/Area]98 mL/min/{1.73_m2}- PINFCleveland ClinicComment on above: Estimated Glomerular Filtration Rate (eGFR) is calculated using the 2020 CKD-EPI creatinine equation. This equation utilizes serum creatinine, sex, and age as parameters. The creatinine assay has traceable calibration to isotope dilution- mass spectrometry. Refer to KDIGO guidelines for clinical interpretation. In patients with unstable renal function, e.g. those with acute kidney injury, the eGFRmay not accurately reflect actual GFR.Glucose [Mass/Vol]139 mg/cQIslm67 - 99 mg/dLSelect Medical Cleveland Clinic Rehabilitation Hospital, Edwin ShawComment on above:The [place] Diabetes Association (ADA) provides guidance for cutoff values for fasting glucose andrandom glucose. The ADA defines fasting as no caloric intake for at least 8 hours. Fasting plasma gl ucose results between 100 to 125 mg/dL indicate increased risk for diabetes (prediabetes). Fasting plasma glucose results greater than or equal to 126 mg/dL meet the criteria for diagnosis of diabetes. In the absence of unequivocal hyperglycemia, results should be confirmed by repeat testing. In a patient with classic symptoms of hyperglycemia or hyperglycemic crisis, random plasma glucose results greater than or equal to 200 mg/dL meet the criteria for diagnosis of diabetes. Reference: Standards of Medical Care in Diabetes 2016, [place] Diabetes Association. Diabetes Care. 2016.39(Suppl 1). Interpretation and review of laboratory resultsAbnormalCleveland ClinicPotassium [Moles/Vol]4.3 mmol/L3.7 - 5.1 mmol/LCleveland ClinicProtein [Mass/Vol]6.9 g/dL 6.3 - 8.0 g/dLClegalion hospital ClinicSodium [Moles/Vol]142 mmol/L136 - 144 mmol/L Weirsdale ClinicUrea nitrogen [Mass/Vol]16 mg/dL9 - 24 mg/dLNorwalk Memorial Hospitalbumin [Mass/Vol]4.3 g/dLNormal3.9-4.9CUpper Valley Medical Center on above:Order Comment: Specimen Type: BLOOD SPECIMENOrdering Facility: [facility] Address:[address] [place], [place] [address]Performed By: #### 64904-3 ####[facility] LABCLIA [id number] [place] [address] [place] ALP [Catalytic activity/Vol]63 U/GJvrvxr12-165YkbuvaxrfTwin City Hospital on above:Order Comment: Specimen Type: BLOOD SPECIMENOrdering Facility: [facility] Address:[address] [place] [address] Performed By: #### 87204-7 ####[facility] LABCLIA [id number] [place] [address] [place] ALT [Catalytic activity/Vol]35 U/NVfhlvw24-87ThneubkflTwin City Hospital on above:Order Comment: Specimen Type: BLOOD SPECIMENOrdering Facility: [facility] Address:[address] [place] [address] Performed By: #### 58177-1 ####[facility] LABCLIA [id number] [place] [id number] [place] Anion gap [Moles/Vol]13 mmol/LNormal8-15[facility] on above:Order Comment: Specimen Type: BLOOD SPECIMENOrdering Facility: [facility] Address:[address] [place], [place] [address]Performed By: #### 39634-4 ####[facility] LABIA [id number] [place] [address] [place] AMERICAAST [Catalytic activity/Vol]26 U/TJhpdtf85-75GtqszdpqqTwin City Hospital on above:Order Comment: Specimen Type: BLOOD SPECIMENOrdering Facility: [facility] Address:[address] [place], [place] [address]Performed By: #### 19692- 8 ####[facility] LABCLIA [id number] [place] [id number] [place] AMERICABilirubin [Mass/Vol]0.2 mg/dL Normal0.2-1.3CTriHealth McCullough-Hyde Memorial HospitalComment on above:Order Comment: Specimen Type: BLOOD SPECIMENOrdering Facility: [facility] Address:[address] [place], [place] [address]Performed By: #### 18153-1 ####[facility] LABCLIA [id number] [place] [id number] [place] AMERICACalcium [Mass/Vol]9.3 mg/dLNormal8.5-10.2ClevelSelect Medical Specialty [facility] on above:Order Comment: Specimen Type: BLOOD SPECIMENOrdering Facility: [facility] Address:[address] [place], [place] [address]Performed By: #### 61094-3 ####[facility] LABCLIA [id number] [place] [id number] [place] AMERICAChloride [Moles/Vol]102 mmol/SIssavc68-046BawkkraxzSt. Elizabeth Hospital Comment on above:Order Comment: Specimen Type: BLOOD SPECIMENOrdering Facility: [facility] Address:[address] [place] [address] Performed By: #### 37549-2 ####[facility] LABCLIA [id number] [place] [id number] [place] CO2 [Moles/Vol]27 mmol/QHvfoqp12-72VsoskziojSt. Elizabeth HospitalCommymichigan [facility] on above: Order Comment: Specimen Type: BLOOD SPECIMENOrdering Facility: [facility] Address:[address] [place], [place] [address]Performed By: #### 53881- 8 ####[facility] LABCLIA [id number] [address] [address] [place] AMERICACreatinine [Mass/Vol]0.76 mg/dL Normal0.73-1.22[facility] on above:Order Comment: Specimen Type: BLOOD SPECIMENOrdering Facility: [facility] Address:[address] [place], [place] [address]Performed By: #### 41404-9 ####[facility] LABCLIA [id number] [place] [id number] [place] AMERICAeGFRcr SerPlBld CKD-EPI 692303 mL/min/1.73m???Normal>=60[facility] on above:Order Comment: Specimen Type: BLOOD SPECIMENOrdering Facility: [facility] Address:[address] [place], [place] [address]Result Comment: Estimated Glomerular Filtration Rate (eGFR) is calculated using the 2020 CKD-EPI cre atinine equation. This equation utilizes serum creatinine, sex, and age as parameters. The creatinine assay has traceable calibration to isotope dilution- mass spectrometry. Refer to KDIGO guidelines for clinical interpretation. In patients with unstable renal function, e.g. those with acute kidney injury, the eGFR may not accurately reflect actual GFR.Performed By: #### 94765-4 ####[facility] LABCLIA [id number] [place] [id number] [place] AMERICAGlucose [Mass/Vol]139 mg/dLHigh 74-99[facility] on above:Order Comment: Specimen Type: BLOOD SPECIMENOrdering Facility: [facility] Address:[address] [place], [place] [address]Result Comment: The [place] Diabetes Association (ADA) provides guidance for cutoff values for fasting glucose and random glucose. The ADA defines fasting as no caloric intake for at least 8 hours. Fasting plasma glucose results between 100 to 125 mg/dL indicate increased risk for diabetes (prediabetes).Fasting plasma glucose results greater than or equal to 126 mg/dL meet the criteria for diagnosis of diabetes. In the absence of unequivocal hyperglycemia, results should be confirmed by repeattesting. In a patient with classic symptoms of hyperglycemia or hyperglycemic crisis, random plasmaglucose results greater than or equal to 200 mg/dL meet the criteria for diagnosis of diabetes.Reference: Standards of Medical Care in Diabetes 2016, [place] Diabetes Association. Diabetes Care. 2016.39(Suppl 1).Performed By: #### 81618-0 ####[facility] LABIA [id number] [place] [address] [place] AMERICAPotassium [Moles/Vol]4.3 mmol/L Normal3.7-5.1CUpper Valley Medical Center on above:Order Comment: Specimen Type: BLOOD SPECIMENOrdering Facility: [facility] Address:[address] [place], [place] [address]Performed By: #### 45512-3 ####[facility] LABIA [id number] [place] [address] [place] AMERICAProtein [Mass/Vol]6.9 g/dLNormal6.3-8.0[facility] on above:Order Comment: Specimen Type: BLOOD SPECIMENOrdering Facility: [facility] Address:[address] [place], [place] [address]Performed By: #### 99429-0 ####[facility] CENTERIA [id number] [place] [address] [place] Sodium [Moles/Vol]142 mmol/OHtjqae105-205RwjonbibzTwin City Hospital on above:Order Comment: Specimen Type: BLOOD SPECIMENOrdering Facility: [facility] Address:[address] [place], [place] [address]Performed By: #### 77067-8 ####[facility] LABIA [id number] [place] [id number] [place] AMERICAUrea nitrogen [Mass/Vol]16 mg/dLNormal9-24[facility] on above:Order Comment: Specimen Type: BLOOD SPECIMENOrdering Facility: [facility] Address:[address] [place], [place] [address]Performed By: #### 08646- 8 ####[facility] LABIA [id number] [address] OF AMERICACortis SerPl-mCncon 11-09-2024 Cortisol [Mass/Vol]2.2 ug/dLLow4.8-19.5CUpper Valley Medical Center on above:Order Comment: Specimen Type: BLOOD SPECIMENOrdering Facility: [facility] Address:[address] [place] [address] [place], [place] [address]Result Comment: Provided reference range is from 6-10 AM sample collection time.Cortisol Reference Range: 6-10 AM = 4.8-19.5 ug/dL, 4-8 PM = 2.5-11.9 ug/dLPerformed By: #### 3016-3, 2143-6 ####[facility] LABCLIA [id number] [address] STATES OF AMERICACortisol [Mass/Vol]on 29-65-6034Uvlmgymtevrsen and review of laboratory resultsAbnormal [facility] ShawEosinophils/100 WBC Auto (Bld)Ordered By: Lo Hancock on 46-61-9387Bejvqpqabtd/100 WBC (Bld)0.0 %[facility] Erythrocyte distribution width Auto (RBC) [Ratio]Ordered By: Lo Hancock on 31-31-5302Agrhosefyaz distribution width (RBC) [Ratio]14.9 %11.5-15.0[facility] HospitalGLUCOSE, BLOOD (POC)on 35-08-9120Zxdraur [Mass/Vol]137 mg/yZNklsotpx78 - 99 mg/dLBlanchard Valley Health System [facility] on above:Location:[facility], [address] [place] [address] , [place], [place], [address] The Accu-Chek Inform II glucose meter has not been approved for testing on patients receiving intensive medical intervention or therapy and results from this point of care glucose test should not be used for patient management decisions in these cases. Inaccurate results may also occur from other interfering factors, such as N-acetylcysteine (blood concentrations of greater than 5mg/dL), galactose, extremes of hematocrit (<10 or >65), or high doses of ascorbic acid (vitamin C) greater than 3mg/dL. Consider alternate testing mechanisms (e.g. core lab, blood gas instrument) in the above situations. Interpretation and review of laboratory resultsAbnormalCParkview Health Bryan HospitalGlomerular filtration rate [Volume Rate/Area] in Serum, Plasma or Blood by CreatinineOrdered By: Lo Hancock on 82-49-7239Wibfgdmyjs filtration rate [Volume Rate/Area] in Serum, Plasma or Blood by Cubdthkstu52 mL/min/1.73m???>=60 [facility] HospitalComment on above:Estimated Glomerular Filtration Rate (eGFR) is calculated using the 2020 CKD-EPI creatinine equation. This equation utilizes serum creatinine, sex, and age as parameters. The creatinine assay has traceable calibration to isotope dilution-mass spectrometry. Refer to KDIGO guidelines for clinical interpretation. In patients with unstable renal function, e.g. those with acute kidney injury, the eGFRmay not accurately reflect actual GFR.Glucose mean value [Mass/volume] in Blood Estimated from glycated hemoglobinOrdered By: Lo Hancock on 11-09-2024 Average glucose Estimated from glycated hemoglobin (Bld) [Mass/Vol]123 mg/dL [facility] HospitalComment on above:eAG: (Estimated average glucose) is a calculated value from HgbA1c and is telephone claims representative of the average blood glucose level in the last 2-3 month period.HbA1c (Bld)on 33-21-3794Jdzjrjs glucose Estimated from glycated hemoglobin (Bld) [Mass/Vol]123 mg/dLBlanchard Valley Health System [facility] on above:eAG: (Estimated average glucose) is a calculated value from HgbA1c and is telephone claims representative of the average blood glucose level in the last 2-3 month period.HbA1c (Bld) [Mass fraction]5.9 %High4.3 - 5.6 %[facility] on above:[place] Diabetes Association guidelines indicate that patients with HgbA1c in the range 5.7-6.4% are at increased risk for development of diabetes, and intervention by lifestyle modification may be beneficial. HgbA1c greater or equal to 6.5% is considered diagnostic of diabetes. Interpretation and review of laboratory resultsAbnormalCParkview Health Bryan HospitalAverscott county memorial hospital glucose Estimated from glycated hemoglobin (Bld) [Mass/Vol]123 mg/dLNoOhio State University [facility] on above:Order Comment: Specimen Type: BLOOD SPECIMENOrdering Facility: [facility] Address:[address] [place], [place] [address]Axeggg Comment: eAG: (Estimated average glucose) is a calculated value from HgbA1c and is telephone claims representative of the average blood glucose level in the last 2-3 month period.Performed By: #### 76430-3 ####[facility] LABCLIA [id number] [place] [address] [place] YSNINNUBrW4n (Bld) [Mass fraction]5.9 % High4.3-5.6CTriHealth McCullough-Hyde Memorial HospitalCommymichigan medical center [facility] branch on above:Order Comment: Specimen Type: BLOOD SPECIMENOrdering Facility: [facility] Address:[address] [place], [place] [address]Result Comment: [place] Diabetes Association guidelines indicate that patients with HgbA1c in the range 5.7-6.4% are at increased risk for development of diabetes, and intervention by lifestyle modif ication may be beneficial. HgbA1c greater or equal to 6.5% is considered diagnostic of diabetes.Performed By: #### 22268-6 ####[facility] LABCLIA [id number] [place] [id number] [place] AMERICAHematocrit Auto (Bld) [Volume fraction]Ordered By: Lo Hancock on 69-25-7435Wkeuwgapvn (Bld) [Volume fraction]36.8 %Low39.0-51.0 [facility] HospitalHemoglobin A1c percentageOrdered By: Lo Hancock on 06-30-9030QgC3e (Bld) [Mass fraction]5.9 %High4.3-5.6FSelect Medical [facility] Clinic Rehabilitation Hospital, Edwin ShawComment on above:[place] Diabetes Association guidelines indicate that patients with HgbA1c in the range 5.7-6.4% are at increased risk for development of diabetes, and intervention by lifestyle modification may be b eneficial. HgbA1c greater or equal to 6.5% is considered diagnostic of diabetes. Hemoglobin [Mass/volume] in BloodOrdered By: Lo Hancock on 11-09-2024 Hemoglobin (Bld) [Mass/Vol]12.4 g/dLLow13.0-17.0[facility] HospitalLaboratory - Chemistry and Chemistry - challengeOrdered By: Lo Hancock on 47-31-1485Vjcyvix [Mass/Vol]4.3 g/dL3.9-4.9[facility] HospitalALP [Catalytic activity/Vol]63 U/Q57-601HdbuhhpnuOhio State East HospitalALT [Catalytic activity/Vol]35 U/V63-05EwxcbchubOhio State East Hospital AST [Catalytic activity/Vol]26 U/X86-57LonrkcbzqOhio State East Hospital Bilirubin [Mass/Vol]0.2 mg/dL0.2-1.3FSelect Medical [facility] Clinic Rehabilitation Hospital, Edwin ShawCalcium [Mass/Vol]9.3 mg/dL8.5-10.2FSelect Medical [facility] Clinic Rehabilitation Hospital, Edwin ShawChloride [Moles/Vol] 102 mmol/R05-234MsiwwmfehOhio State East HospitalCO2 [Moles/Vol]27 mmol/L22-30 [facility] HospitalCreatinine [Mass/Vol]0.76 mg/dL0.73-1.22 [facility] HospitalGlucose [Mass/Vol]139 mg/cKMuvo91-20BbpkrutbxOhio State East HospitalComment on above:The [place] Diabetes Association (ADA) provides guidance for cutoff values for fasting glucose andrandom glucose. The ADA defines fasting as no caloric intake for at least 8 hours. Fasting plasma gl ucose results between 100 to 125 mg/dL indicate increased risk for diabetes (prediabetes).Fasting plasma glucose results greater than or equal to 126 mg/dL meet the criteria for diagnosis of diabetes. In the absence of unequivocal hyperglycemia, results should be confirmed by repeat testing. In a patient with classic symptoms of hyperglycemia or hyperglycemic crisis, random plasma glucose resultsgreater than or equal to 200 mg/dL meet the criteria for diagnosis of diabetes.Reference: Standardsof Medical Care in Diabetes 2016, [place] Diabetes Association. Diabetes Care. 2016.39(Suppl 1).Potassium [Moles/Vol]4.3 mmol/L 3.7-5.1FUniversity Hospitals Samaritan Medical Centerodium [Moles/Vol]142 mmol/D048-837 [facility] HospitalTSH Qn0.362 m[IU]/L0.270-4.200[facility] HospitalUrea nitrogen [Mass/Vol]16 mg/dL9-24[facility] HospitalLaboratory - Hematology and Cell countsOrdered By: Lo Hancock on 97-58-5306Tddwnvzbxuq (Bld) [#/Vol]10*3/uL<0.46[facility] HospitalImvtture granulocytes (Bld) [#/Vol]0.32 10*3/uLHigh<0.10[facility] HospitalImtenet [address] [place] granulocytes/100 WBC (Bld)1.3 %[facility] HospitalLeukocytes [#/volume] corrected for nucleated erythrocytes in Blood by Automated counOrdered By: Lo Hancock on 28-31-5862DNV corrected for nucl RBC Auto (Bld) [#/Vol]24.43 k/uLHigh3.70-11.00[facility] HospitalLymphocytes Auto (Bld) [#/Vol]Ordered By: Lo Hancock on 37-46-7786Ufknkyvfjgy (Bld) [#/Vol]1.47 10*3/uL1.00-4.00[facility] HospitalLymphocytes/100 WBC Auto (Bld)Ordered By: Lo Hancock on 52-90-3191Purnqglcrtl/100 WBC (Bld)6.0 %[facility] Auto (RBC) [Entitic mass]Ordered By: Lo Hancock on 62-70-3652ATM (RBC) [Entitic mass]29.4 pg26.0-34.0[facility] HospitalMCHC Auto (RBC) [Mass/Vol]Ordered By: Lo Hancock on 68-60-5246ISBX (RBC) [Mass/Vol]33.7 g/dL30.5-36.0[facility] HospitalMCV Auto (RBC) [Entitic vol] Ordered By: Lo Hancock on 61-42-7651HES (RBC) [Entitic vol]87.2 fL 80.0-100.0[facility] HospitalMonocytes Auto (Bld) [#/Vol]Ordered By: Lo Hancock on 68-52-0617Mcwjlfyzd (Bld) [#/Vol]0.89 10*3/uLHigh<0.87 [facility] HospitalMonocytes/100 WBC Auto (Bld)Ordered By: Lo Hancock on 11-17-3103Xmeiyjdnb/100 WBC (Bld)3.6 %[facility] HospitalNM PET/CT SKULL-THIGH SUBQon 47-65-2188OB PET/CT SKULL-THIGH SUBQNormal [facility] ClevelandNeutrophils Auto (Bld) [#/Vol]Ordered By: Lo Hancock on 86-57-7206Ghbiqvfckom (Bld) [#/Vol]21.70 10*3/uLHigh1.45-7.50 [facility] HospitalNeutrophils/100 WBC Auto (Bld)Ordered By: Lo Hancock on 24-77-1786Guanshkycqv/100 WBC (Bld)88.9 %[facility] HospitalNo Panel Informationon 83-37-5982Etlgzmdxt ClinicNucleated RBC Auto (Bld) [#/Vol]Ordered By: Lo Hancock on 11-87-8844Kysuumuuf RBC (Bld) [#/Vol]10*3/uL<0.01[facility] HospitalNucleated erythrocytes [Presence] in Blood by Automated countOrdered By: Lo Hancock on 11-09-2024 Nucleated RBC Auto Ql (Bld)0.0 /100{WBC}[facility] HospitalPET+CT Guidance for localization of tumor of Skull base to mid-thigh-- W 18F-FDG Landy 11-09-2024* * *Final Report* * * DATE OF EXAM: Nov 09 2024 12:10PM NRN 0063 - NM PET/CT SKULL-THIGH SUBQ / PROCEDURE REASON: Malignant neoplasm of unspecified part of unspecified bronchus or lung (HCC) * * * * Physician Interpretation * * * * RESULT: EXAMINATION: BODY FDG PET-CT CLINICAL HISTORY: Malignant neoplasm of unspecified part of unspecified bronchus or lung (HCC) EXAM CATEGORY: Subsequent treatment strategy. TECHNIQUE: Radiopharmaceutical was administered intravenously followed by PET imaging from the eyes to thighs. Free breathing, low dose CT of the same body region was acquired without IV contrast for attenuation correction and anatomic localization. Unenhanced imaging is limited for the evaluation of some pathology and the acquired CT was not designed to produce diagnostic CT scan quality. Physiologic/non-pathologic uptake in some body regions could confound or obscure some pathology. * CT Dose-Length Product (DLP): 229 mGy*cm * CT Dose Reduction Employed: Yes * Blood glucose: 137 mg/dL * Injection site: Right Forearm-Antecubital * Injected activity: 10.8 mCi * Uptake Time: 61 minutes * Radiopharmaceutical: Z50-Aujsbbhccnwkidutzf (FDG) COMPARISON: 08/03/2024 CORRELATION: 07/29/2024 [facility] neck CTA report RESULT: REFERENCES: FDG uptake is used as a surrogate marker for glucose metabolism. All reported standardized uptake values represent maximum SUV (SUVmax) per body weight, unless otherwise specified. SUV reference values, as follows: * Blood Pool (Descending Aorta): SUVmax 2.3 * Background Liver: SUVmax 3; SUVmean 2.1 Localizer Images: No additional findings. HEAD AND NECK: Head: No radiotracer avid lesion or mass effect in the imaged intracranial compartment. Aerodigestive Tract: No radiotracer avid lesion. Lymph Nodes: No radiotracer avid lymphadenopathy. Neck Soft Tissues: No radiotracer avid thyroid nodule. CHEST: Lungs & Pleura: No radiotracer avid focal nodule, bandlike density at the level of the previously treated lesion. Near-complete resolved posterior left lower lobe airspace opacities. Small left pleural effusion SUV max 2.1, previously trace with SUV max 1.6. Small amount of fluid/density along the major fissure. Lymph Nodes: No radiotracer avid lymphadenopathy. Mediastinum: No radiotracer avid mass. Cardiovascular: Blood pool activity. No pericardial effusion. Calcified coronary and aortic atherosclerosis. Chest Wall: No radiotracer avid soft tissue lesion. ABDOMEN AND PELVIS: Hepatobiliary: No radiotracer avid lesion. No measurable mass. Spleen: No radiotracer avid lesion. No splenomegaly. Pancreas: No radiotracer avid lesion. Adrenals: No radiotracer avid nodule. Urinary Tract: Physiologic radiotracer excretion in the renal collecting systems and urinary bladder. No hydronephrosis. GI Tract: No radiotracer avid lesion. No bowel dilation. Colonic diverticulosis. Peritoneum: No radiotracer avid lesion. No ascites. Lymph Nodes: No radiotracer avid lymphadenopathy. Vasculature: Blood pool activity. Vascular calcifications without an abdominal aortic aneurysm. Pelvic Organs: No radiotracer avid lesion. MUSCULOSKELETAL: Bones: No radiotracer avid lesion. No lytic or sclerotic lesion. Soft Tissues: No radiotracer avid lesion. IMPRESSION Since 08/03/2024, PRIMARY DISEASE SITE: * No new/worsening focal pulmonary parenchymal abnormality. * Evolving left lower lobe posttreatment changes; attention on follow-up. ROWENA DISEASE: * No metabolically active regional lymphadenopathy. METASTATIC DISEASE: * No metabolically active distant metastases. ADDITIONAL FINDINGS: * Small mildly avid left pleural effusion slightly more conspicuous and larger compared to the prior study; attention on follow-up. Transcribe Date/Time: Nov 09 2024 12:19P Dictated by: ESPINOZA MURO MD This examination was interpreted and the report reviewed and electronically signed by: ESPINOZA MURO MD on Nov 09 2024 1:02PM EST Thank you for allowing us to participate in the care of your patient. Should there be any questions regarding this interpretation, please call [phone]. If you are unable to reach us at the number above, please feel free to contact [facility] at [phone].DIVISION OF RADIOLOGYProvider, [facility] [employer] - 11/09/2024 * * *Final Report* * * DATE OF EXAM: Nov 09 2024 12:10PM NRN 0063 - NM PET/CT SKULL-THIGH SUBQ / PROCEDURE REASON: Malignant neoplasm of unspecified part of unspecified bronchus or lung (HCC) * * * * Physician Interpretation * * * * RESULT: EXAMINATION: BODY FDG PET-CT CLINICAL HISTORY: Malignant neoplasm of unspecified part of unspecified bronchus or lung (HCC) EXAM CATEGORY: Subsequent treatment strategy. TECHNIQUE: Radiopharmaceutical was administered intravenously followed by PET imaging from the eyes to thighs. Free breathing, low dose CT of the same body region was acquired without IV contrast for attenuation correction and anatomic localization. Unenhanced imaging is limited for the evaluation of some pathology and the acquired CT was not designed to produce diagnostic CT scan quality. Physiologic/non-pathologic uptake in some body regions could confound or obscure some pathology. * CT Dose-Length Product (DLP): 229 mGy*cm * CT Dose Reduction Employed: Yes * Blood glucose: 137 mg/dL * Injection site: Right Forearm-Antecubital * Injected activity: 10.8 mCi * Uptake Time: 61 minutes * Radiopharmaceutical: Z12-Jojtycxdkwjubwjxtc (FDG) COMPARISON: 08/03/2024 CORRELATION: 07/29/2024 [facility] neck CTA report RESULT: REFERENCES: FDG uptake is used as a surrogate marker for glucose metabolism. All reported standardized uptake values represent maximum SUV (SUVmax) per body weight, unless otherwise specified. SUV reference values, as follows: * Blood Pool (Descending Aorta): SUVmax 2.3 * Background Liver: SUVmax 3; SUVmean 2.1 Localizer Images: No additional findings. HEAD AND NECK: Head: No radiotracer avid lesion or mass effect in the imaged intracranial compartment. Aerodigestive Tract: No radiotracer avid lesion. Lymph Nodes: No radiotracer avid lymphadenopathy. Neck Soft Tissues: No radiotracer avid thyroid nodule. CHEST: Lungs & Pleura: No radiotracer avid focal nodule, bandlike density at the level of the previously treated lesion. Near-complete resolved posterior left lower lobe airspace opacities. Small left pleural effusion SUV max 2.1, previously trace with SUV max 1.6. Small amount of fluid/density along the major fissure. Lymph Nodes: No radiotracer avid lymphadenopathy. Mediastinum: No radiotracer avid mass. Cardiovascular: Blood pool activity. No pericardial effusion. Calcified coronary and aortic atherosclerosis. Chest Wall: No radiotracer avid soft tissue lesion. ABDOMEN AND PELVIS: Hepatobiliary: No radiotracer avid lesion. No measurable mass. Spleen: No radiotracer avid lesion. No splenomegaly. Pancreas: No radiotracer avid lesion. Adrenals: No radiotracer avid nodule. Urinary Tract: Physiologic radiotracer excretion in the renal collecting systems and urinary bladder. No hydronephrosis. GI Tract: No radiotracer avid lesion. No bowel dilation. Colonic diverticulosis. Peritoneum: No radiotracer avid lesion. No ascites. Lymph Nodes: No radiotracer avid lymphadenopathy. Vasculature: Blood pool activity. Vascular calcifications without an abdominal aortic aneurysm. Pelvic Organs: No radiotracer avid lesion. MUSCULOSKELETAL: Bones: No radiotracer avid lesion. No lytic or sclerotic lesion. Soft Tissues: No radiotracer avid lesion. IMPRESSION Since 08/03/2024, PRIMARY DISEASE SITE: * No new/worsening focal pulmonary parenchymal abnormality. * Evolving left lower lobe posttreatment changes; attention on follow-up. ROWENA DISEASE: * No metabolically active regional lymphadenopathy. METASTATIC DISEASE: * No metabolically active distant metastases. ADDITIONAL FINDINGS: * Small mildly avid left pleural effusion slightly more conspicuous and larger compared to the prior study; attention on follow-up. Transcribe Date/Time: Nov 09 2024 12:19P Dictated by: ESPINOZA MURO MD This examination was interpreted and the report reviewed and electronically signed by: ESPINOZA MURO MD on Nov 09 2024 1:02PM EST Thank you for allowing us to participate in the care of your patient. Should there be any questions regarding this interpretation, please call [phone]. If you are unable to reach us at the number above, please feel free to contact [facility] at [phone]. [facility] ShawRadiology Study observation (narrative)[facility] HospitalT+CT Guidance for localization of tumor of Skull base to mid-thigh-- W 18F-FDG IV Ordered By: [facility] Provider on 68-22-3401Sdpbasaad ClinicPlatelet mean volume Auto (Bld) [Entitic vol]Ordered By: Lo Hancock on 91-23-1070Zvdefbnm mean volume (Bld) [Entitic vol]9.7 fL9.0-12.7FSelect Medical Cleveland Clinic Rehabilitation Hospital, Edwin ShawPlatelets Auto (Bld) [#/Vol]Ordered By: Lo Hancock on 92-43-9884Acqgqznpe (Bld) [#/Vol]296 10*3/jB643-581PehcwglraOhio State East HospitalProtein [Mass/volume] in Serum or PlasmaOrdered By: Lo Hancock on 03-64-1243Bsywtbj [Mass/Vol]6.9 g/dL 6.3-8.0Ohio State East HospitalRBC Auto (Bld) [#/Vol]Ordered By: Lo Hancock on 15-77-2653BNS (Bld) [#/Vol]4.22 10*6/uL4.20-6.00Martins Ferry Hospitalerum or plasma anion gap determinationOrdered By: Lo Hancock on 98-59-4044Ljzsl gap [Moles/Vol]13 mmol/L8-15Ohio State East HospitalTHYROID STIMULATING HORMONEon 80-16-3116VDA Qn0.362 m[IU]/LCleveland [facility] Qnon 88-25-0527Hhpjtixpqdznqr and review of laboratory resultsNormal [facility] SerPl-aCncon 96-96-1558RRA Qn0.362 m[IU]/LNormal0.270-4.200 [facility] on above:Order Comment: Specimen Type: BLOOD SPECIMENOrdering Facility: [facility] Address:[address] [place], [place] [address]Performed By: #### 3016-3, 2143-6 ####[facility] LABCLIA [id number] [place] [address] [place] [facility] HOSPITALCNPNon 16-61-1363WMYUMcsrxrOnibufgdr Clinic ClevelandCNPNon 90-64-6481WWZMAufesaVfoxrxxsr Clinic ClevelandCNPNon 61-95-2137AXIRBlxzuk St. Elizabeth HospitalECH echo transthoracicon 66-47-5033M[place] [address] Echocardiogram Signed Patient: Erin Pena MR#: [id number] 8 : 1955 Acct:[id number] Age/Sex: 68 / M ADM Date: 10/27/24 Loc: Room: [address] [place] [address] Type: ADM IN Attending Dr: Clarence Stevens DO Ordering Provider: Clarence Stevens DO Date of Service: 10/28/24 ECH/ECH echo transthoracic: Chest Pain Copies to: MD Clarence Graham DO BSA: 1.9 m2 BP: 167/78 mmHg HR: 75 Reason For Study: Chest Pain, Pericardial effusion by CT History: HTN, HLD, Lung Cancer Interpretation Summary Ejection Fraction = 65-70%. The left ventricular size and thickness are normal. No regional wall motion abnormalities noted. A variety of Doppler measurements indicate normal left ventricular diastolic function. There is trace mitral regurgitation. There is trace tricuspid regurgitation. Right ventricular systolic pressure is elevated at 30-40mmHg. Small pericardial effusion (<1cm) No evidence of cardiac tamponade physiology. Normal global longitudinal strain -20.5%. There is no comparison study available. Procedure/Quality: A two-dimensional transthoracic echocardiogram with color flow and Doppler was performed. The study was technically good in quality. Left Ventricle: The left ventricular size and thickness are normal. Ejection Fraction = 65-70%. Normal global longitudinal strain -20.5%. A variety of Doppler measurements indicate normal left ventricular diastolic function. No regional wall motion abnormalities noted. Left Atrium: The left atrium appears normal in size. Right Atrium: The right atrium appears normal in size. Right Ventricle: The right ventricle is normal in size and function. Aortic Valve: The aortic valve is moderately sclerotic. No hemodynamically significant valvular aortic stenosis. No aortic regurgitation is present. Mitral Valve: The mitral valve is normal in structure. No significant mitral valve stenosis. There is trace mitral regurgitation. Tricuspid Valve: The tricuspid valve is normal in structure. There is trace tricuspid regurgitation. Right ventricular systolic pressure is elevated at 30-40mmHg. Pulmonic Valve: The pulmonic valve is not well visualized. No significant pulmonic regurgitation. Arteries: The aortic root is normal size. Pericardium/Pleura: Small pericardial effusion (<1cm). No evidence of cardiac tamponade physiology. IVC/Hepatic Veins: The inferior vena cava is normal in size, with a normal collapsibility index. Measurements with Normals IVSd: 0.95 cm (0.7-1.1 cm)LVIDd: 5.2 cm (3.7-5.4 cm) LVPWd: 0.95 cm (0.7-1.1 cm)LVIDs: 2.9 cm (2.3-3.6 cm) LA dimension: 3.9 cm (2.3-4.0 cm)Ao root diam: 3.4 cm(2.0-3.6 cm) asc Aorta Diam: 3.1 cm(2.1-3.4cm) Doppler with Normals RVSP(TR): 39.6 mmHg (18-35mmHg) LV V1 max: 123.0 cm/sec (0.7-1.7m/s)MV E max lakhwinder: 106.0 cm/sec(0.8-1.3m/s) MV A max lakhwinder: 117.1 cm/sec(0.0-0.0m/s) MV E/A: 0.91 (<1.5) MMode/2D Measurements Calculations RVDd: 3.1 cm FS: 44.5 % Ao root area: LVOT diam: 2.0 cm TAPSE: 2.6 cm EDV(Teich): 9.1 cm2 LVOT area: 3.1 cm2 RV S Lakhwinder: 132.2 ml 24.2 cm/sec ESV(Teich): 32.5 ml EF(Teich): 75.4 % __ LVLd ap4: 7.1 cm SV(MOD-sp4): LAV(MOD-sp4): LA A2 area: 18.4 cm2 EDV(MOD-sp4): 41.6 ml 59.4 ml 57.8 ml LAV(MOD-sp2): LA A4 area: 20.8 cm2 LVLs ap4: 5.5 cm 49.3 ml LA length (vol): ESV(MOD-sp4): 5.6 cm 16.2 ml LA vol: 57.7 ml EF(MOD-sp4): 72.0 % LA vol index: 30.2 ml/m2 Doppler Measurements Calculations MV dec time: MV V2 max: E/E' lat: 9.5 MV P1/2t max lakhwinder: 0.21 sec 130.3 cm/sec E/E' med: 11.7 121.6 cm/sec MV max PG: MV P1/2t: 66.5 msec 70.0 mmHg MV V2 mean: MVA(P1/2t): 3.3 cm2 87.4 cm/sec MV dec slope: MV mean P.6 cm/sec2 3.4 mmHg MV V2 VTI: 41.8 cm MVA(VTI): 2.1 cm2 __ Ao V2 max: LV V1 max PG: MR max lakhwinder: TV max P.0 mmHg 229.0 cm/sec 6.1 mmHg 417.1 cm/sec Ao max PG: LV V1 mean PG: MR max P.0 mmHg 3.0 mmHg 69.7 mmHg Ao mean PG: LV V1 mean: 12.0 mmHg 83.7 cm/sec Ao V2 mean: LV V1 VTI: 29.0 cm 156.0 cm/sec Ao V2 VTI: 55.2 cm YASMANY(I,D): 1.6 cm2 YASMANY(V,D): 1.7 cm2 __ TR max lakhwinder: 294.3 cm/sec TR max P.6 mmHg RAP systole: 5.0 mmHg Measurements from QLAB CI (): ED Mass (HM): LAEF (): 66.0 % BSA (): 1.9 m2 176.0 grams 2.9 l/min/m2 __ BRIAN (): LAVmax (HM): LAVmin (HM): 27.0 mlPat Height (): 42.0 ml/m2 80.0 ml 168.0 cm __ Pat Weight (): 81.4 kg QLAB Heart Model EDV ()_phl: 123.0 ml EF ()_phl: 60.0 % ED Current ()_phl: 60.0 % ESV ()_phl: 50.0 ml HR ()_phl: 75.0 BPMES Current ()_phl: 30.0 % LV Length ED ()_phl: 86.0 mmSV ()_phl: 74.0 ml ED Default ()_phl: 60.0 % LV Length ES ()_phl: 62.0 mm ES Default ()_phl: 30.0 % (more content not included)...NormalThe [facility]ly [facility] Health Care Physician GroupBNP ser/plasOrdered By: Wendy Ochoa on 00-38-0424Auegekfazou peptide B (Bld) [Mass/Vol]18.0 pg/mL Normal5-100Ohio State East HospitalComment on above:Result Comment: PERFORMED BY: [facility] [address] [place] [address] PATHOLOGIST PSYCHOLOGICAL OPERATIONS GUADALUPE FREITAS M.D.Performed By: #### BNP, CBC, BMP, HS TROP #### [place] [address] USABasic Metabolic Panelon 74-80-6165Tsozjcylje Clr Calc Npuhpzid82.70NoAlleghany Health Physician GroupComment on above:Result Comment: PERFORMED BY: [place] [address] PATHOLOGIST PSYCHOLOGICAL OPERATIONS GUADALUPE FREITAS M.D.Performed By: #### BNP, CBC, BMP, HS TROP #### [place] [address] USAGFR/1.73 sq M.predicted MDRD (S/P/Bld) [Vol rate/Area] mL/min/{1.73_m2}NormalThe [facility] Care Physician [facility] Medical CenterComment on above:Performed By: #### BNP, CBC, BMP, HS TROP #### [place] [address] USABasophils [#/volume] in Blood by Automated countOrdered By: Wendy Ochoa on 34-25-5110Gucgpctua (Bld) [#/Vol]0.1 10*3/uLNormal0.0-0.2 [facility] HospitalComment on above:Result Comment: PERFORMED BY: [place] [address] PATHOLOGIST PSYCHOLOGICAL OPERATIONS GUADALUPE FREITAS M.D.Performed By: #### BNP, CBC, BMP, HS TROP #### [place] [address] USABasophils/100 leukocytes in Blood by Automated count Ordered By: Wendy Ochoa on 63-42-5611Btqfnvcap/100 WBC (Bld)0.5 %Normal. [facility] HospitalComment on above:Performed By: #### BNP, CBC, BMP, HS TROP #### [place] [address] USABioFire Not Detectedon 78-14-5359CtqYppo Not DetectedNot detectedNormalNot DetecteThe [facility] Health Care Physician GroupComment on above:Result Comment: This is a duplicate RP2.1 COVID (PCR) result to be used for statistical tracking purpose only. PERFORMED BY: [place] [address] PATHOLOGIST PSYCHOLOGICAL OPERATIONS GUADALUPE FREITAS M.D.Performed By: #### RESP PANEL UPP., BIOFIRECOVNOTDE #### [place] [address] USACOVID-19 Detected/Not DetectedOrdered By: Wendy Ochoa on 62-32-8620JNSV-CoV-2 (COVID-19) RNA ZEINAB+non-probe Ql (Nph)Not detectedNot DetectOhio State University Wexner Medical CenterComment on above:This is a duplicate RP2.1 COVID (PCR) result to be used for statistical tracking purpose only.CT angio chest PE protocolon 61-86-7044TS angio chest PE protocolBARNEY CHILDREN'S [facility]ICAL [facility] Main [place] [address] [place] [address] CT Scan Report Signed Patient: Erin Pena MR#: [id number] 8 : 1955 Acct:[id number] Age/Sex: 68 / M ADM Date: 10/27/24 Loc: ER Room: Type: [facility] ER Attending Dr: Copies to: Wendy Ochoa MD Ordering Provider: Wendy Ochoa MD Date of Service: 10/27/24 CT/CT angio chest PE protocol: L sided pleuritic cp, hx lung ca on L, worse pain CT angio chest PE protocol 10/27/2024 4:03 PM SIGN AND SYMPTOMS: Left-sided chest pain, history of lung cancer CONTRAST: 90 mL of intravenous Isovue-370 TECHNIQUE: Multidetector CT axial slices of the chest were obtained with IV contrast. Multiplanar reformats were performed and viewed on a separate workstation and reviewed to further define anatomy and possible pathology. CT was performed with one or more of the following dose reduction techniques: Automated exposure control, adjustment of the mA and/or kV according to patient size, or use of iterative reconstruction technique. COMPARISON: None. FINDINGS: Lower neck: Thyroid gland within normal limits, no supraclavicle adenopathy. Vessels: Atherosclerotic changes are present in the thoracic aorta, origins of the great vessels, and coronary arteries. There is no evidence of pulmonary embolism. There is poor contrast opac ification in the left common carotid artery just distal to the origin suspicious for a distal occlusion there is a slow limiting stenosis. Mediastinum and Jennifer: Within normal limits. Heart: Normal size. There is a small pericardial effusion.. Airways: Within normal limits Lungs: There is left suprahilar airspace opacity possibly relating to the history of lung cancer. There is an atelectasis in the left lung base. Pleura: There is a small left-sided pleural effusion. Chest Wall: Within normal limits. Upper Abdomen: Within normal limits. Bones: Degenerative changes are noted in the thoracic spine and shoulders. CT/CT angio chest PE protocol IMPRESSION: No evidence of pulmonary embolism. There is left suprahilar airspace opacity possibly relating to the history of lung cancer. There is an atelectasis in the left lung base. There is a small left-sided pleural effusion. There is a small pericardial effusion. Impression dictated by: Mihai Chaudhary M.D. 10/27/2024 4:59 PM Dictation Location: [place] [address] Transcribed By: [facility] 10/27/241658 Dictated By: Mihai Chaudhary II, MD 10/27/241652 Signed By: 10/27/241658[facility] Physician GroupCalcium [Mass/volume] in Serum or PlasmaOrdered By: Wendy Ochoa on 09-02-3039Jallrwa [Mass/Vol]9.4 mg/dL Normal8.6-10.3FSelect Medical [facility] Clinic Rehabilitation Hospital, Edwin ShawComment on above:Performed By: #### BNP, CBC, BMP, HS TROP #### [facility] [address] [place] [address] USACarbon dioxide, total [Moles/volume] in Serum or Plasma Ordered By: Wendy Ochoa on 04-97-0212OA7 [Moles/Vol]30.8 mmol/LNormal 21.0-31.0[facility] HospitalComment on above:Performed By: #### BNP, CBC, BMP, HS TROP #### [facility] [address] [place] [address] USAChloride [Moles/volume] in Serum or PlasmaOrdered By: Wendy Ochoa on 73-46-6285Nwaizqcu [Moles/Vol]102 mmol/JXamrth94-668LprykxaxnOhio State East HospitalComment on above:Performed By: #### BNP, CBC, BMP, HS TROP #### [facility] [address] [place] [address] USAComplete Blood Count Auto Diffon 72-09-2121Xfyu Corpuscular HGB Conc34.6 g/bWBpzaeq93.5-35.6The [facility] Health Care Physician GroupComment on above:Performed By: #### BNP, CBC, BMP, HS TROP #### [facility] [address] [place] [address] USAMonocytes/100 WBC (Bld)17.23 %Normal0.00-20.00The [facility] Health Care Physician GroupComment on above:Performed By: #### BNP, CBC, BMP, HS TROP #### [facility] [address] [place] [address] USANRBC%0.2 /100{WBC}Normal0-0.5The [facility] Comment on above:Performed By: #### BNP, CBC, BMP, HS TROP #### [facility] [address] [place] [address] USAWhite Blood Count9.8 [CFU]/mLNormal4.1-10.5The [facility] Physician [facility] CenterComment on above:Performed By: #### BNP, CBC, BMP, HS TROP #### [place] [address] USACreatinine [Mass/volume] in Serum or PlasmaOrdered By: Wendy Ochoa on 55-98-1428Pdbqzcskzl [Mass/Vol]0.77 mg/dLNormal0.70-1.30 [facility] HospitalComment on above:Performed By: #### BNP, CBC, BMP, HS TROP #### [facility] [address] [place] [address] USAECG 12 lead ECGon 06-09-1196BHB 12 lead ECGBARNEY CHILDREN'S MEDICAL CENTER Main [place] [address] [place] [address] Electrocardiograph Report Signed Patient: Erin Pena MR#: [id number] 8 : 1955 Acct:[id number] Age/Sex: 68 / M ADM Date: 10/27/24 Loc: ER Room: Type: [facility] ER Attending Dr: Ordering Provider: Wendy Ochoa MD Date of Service: 10/27/24 ECG/ECG 12 lead ECG: Shortness of Breath/Dyspnea Copies to: Test Reason : Blood Pressure : 183/77 mmHG Vent. Rate : 72 BPM Atrial Rate : 72 BPM P-R Int : 158 ms QRS Dur : 88 ms QT Int : 396 ms P-R-T Axes : 81 97 79 degrees QTcB Int : 433 ms Normal sinus rhythm Rightward axis Confirmed by Wendy Ochoa MD ([id number]) on 10/27/2024 5:40:37 PM Referred By: Electronically Signed By: Wendy Ochoa MD Transcribed By: MUS Signed By Wendy Ochoa MD 10/06 05/29 1740[facility] Physician GroupEosinophils [#/volume] in Blood by Automated countOrdered By: Wendy Ochoa on 19-03-9700Crcuxgdlgsk (Bld) [#/Vol] 1.1 10*3/uLHigh0.0-0.45[facility] HospitalComment on above: Performed By: #### BNP, CBC, BMP, HS TROP #### [facility] [address] [place], [place] [address] USAEosinophils/100 leukocytes in Blood by Automated count Ordered By: Wendy Ochoa on 58-22-8214Vbnldxixsgs/100 WBC (Bld)11.7 %Normal. [facility] HospitalComment on above:Performed By: #### BNP, CBC, BMP, HS TROP #### [facility] [address] [place] [address] USAErythrocyte distribution width [Ratio] by Automated count Ordered By: Wendy Ochoa on 15-01-6275Yhatbnpxlup distribution width (RBC) [Ratio]14.9 %High12.0-14.8[facility] HospitalComment on above: Performed By: #### BNP, CBC, BMP, HS TROP #### [facility] [address] [place] [id number] USAErythrocytes [#/volume] in Blood by Automated countOrdered By: Wendy Ochoa on 24-08-5804RNH (Bld) [#/Vol]4.67 10*6/uLNormal3.90-5.60 [facility] HospitalComment on above:Performed By: #### BNP, CBC, BMP, HS TROP #### [facility] [address] [place] [address] USAGlomerular filtration rate [Volume Rate/Area] in Serum, Plasma or Blood by CreatinineOrdered By: Wendy Ochoa on 28-21-0338Gpukztfwfe filtration rate [Volume Rate/Area] in Serum, Plasma or Blood by Creatinine> 60.0 mL/MinOhio State East HospitalGlucose [Mass/volume] in Serum or Plasma Ordered By: Wendy Ochoa on 52-57-3547Sdydqrk [Mass/Vol]191 mg/kBFttp82-510 [facility] HospitalComment on above:ADA recommended reference rangeRandom Glucose Reference Range is dependent on time and content of last meal. Glucose of more than 200 mg/dL in a nonstressed, ambulatory subject supports the diagnosisof Diabetes Mellitus.Result Comment: Random Glucose Reference Range is dependent on time and content of last meal. Glucose of more than 200 mg/dL in a nonstressed, ambulatory subject supports the diagnosis of Diabetes Mellitus. ADA recommended reference rangePerformed By: #### BNP, CBC, BMP, HS TROP #### [facility] [address] [place] [address] USAHematocrit [Volume Fraction] of Blood by Automated count Ordered By: Wendy Ochoa on 90-05-3689Okgxqqkdkb (Bld) [Volume fraction]39.9 % Ywgugz33.8-50.0[facility] HospitalComment on above:Performed By: #### BNP, CBC, BMP, HS TROP #### [facility] [address] [place] [address] USAHemoglobin [Mass/volume] in BloodOrdered By: Wendy Ochoa on 68-35-6087Lswqawalfj (Bld) [Mass/Vol]13.8 g/uMNscxsu35.0-17.0 [facility] HospitalComment on above:Performed By: #### BNP, CBC, BMP, HS TROP #### [facility] [address] [place] [address] USALeukocytes [#/volume] corrected for nucleated erythrocytes in Blood by Automated counOrdered By: Wendy Ochoa on 46-52-9068GZV corrected for nucl RBC Auto (Bld) [#/Vol]9.8 10*3/uL4.1-10.5FSelect Medical Cleveland Clinic Rehabilitation Hospital, Edwin ShawLeukocytes [#/volume] in Blood by Automated countOrdered By: Wendy Ochoa on 78-79-0495UMX (Bld) [#/Vol]9.8 10*3/uLNormal4.1-10.5FSelect Medical Cleveland Clinic Rehabilitation Hospital, Edwin ShawComment on above:Performed By: #### BNP, CBC, BMP, HS TROP #### [place] [address] USALymphocytes [#/volume] in Blood by Automated countOrdered By: Wendy Ochoa on 13-43-9456Emvrsmgnpdh (Bld) [#/Vol]1.8 10*3/uLNormal 1.00-4.8[facility] HospitalComment on above:Performed By: #### BNP, CBC, BMP, HS TROP #### [place] [address] USALymphocytes/100 leukocytes in Blood by Automated count Ordered By: Wendy Ochoa on 08-64-1214Kuvytoyawhx/100 WBC (Bld)18.3 %Normal. [facility] HospitalComment on above:Performed By: #### BNP, CBC, BMP, HS TROP #### [facility] [address]H [Entitic mass] by Automated countOrdered By: Wendy Ochoa on 40-70-8171KBB (RBC) [Entitic mass]29.5 mcIfecno05.5-35.2FSelect Medical Cleveland Clinic Rehabilitation Hospital, Edwin ShawComment on above:Performed By: #### BNP, CBC, BMP, HS TROP #### [place] [id number] USAHC Auto (RBC) [Mass/Vol]Ordered By: Wendy Ochoa on 28-90-4844WONY (RBC) [Mass/Vol]34.6 g/dL32.5-35.6FSelect Medical Cleveland Clinic Rehabilitation Hospital, Edwin ShawMCV [Entitic volume] by Automated countOrdered By: Wendy Ochoa on 21-91-6263XGE (RBC) [Entitic vol]85.5 oMBsdyxl68.5-101Ohio State East HospitalComment on above:Performed By: #### BNP, CBC, BMP, HS TROP #### [facility] [address] [place] [id number] USAMonocyte distribution width [Entitic volume] in Blood by AutomatedOrdered By: Wendy Ochoa on 59-89-6399Xmsjovsb distribution width Auto (Bld) [Entitic vol]17.23 %0.00-20.00[facility] Monocytes [#/volume] in Blood by Automated countOrdered By: Wendy Ochoa on 33-12-7158Eilbhqkpn (Bld) [#/Vol]0.7 10*3/uLNormal0.0-0.8[facility] HospitalComment on above:Performed By: #### BNP, CBC, BMP, HS TROP #### [facility] [address] [id number] USAMonocytes/100 leukocytes in Blood by Automated count Ordered By: Wendy Ochoa on 00-35-0434Ftbogypvg/100 WBC (Bld)6.8 %Normal. [facility] HospitalComment on above:Performed By: #### BNP, CBC, BMP, HS TROP #### [facility] [address] [id number] USANeutrophils [#/volume] in Blood by Automated countOrdered By: Wendy Ochoa on 67-06-9375Qymhdurkeuv (Bld) [#/Vol]6.1 10*3/uLNormal 1.8-7.7FSelect Medical Cleveland Clinic Rehabilitation Hospital, Edwin ShawComment on above:Performed By: #### BNP, CBC, BMP, HS TROP #### [facility] [address] [id number] USANeutrophils/100 leukocytes in Blood by Automated count Ordered By: Wendy Ochoa on 44-25-3828Aojxdbdgetw/100 WBC (Bld)62.7 %Normal. [facility] HospitalComment on above:Performed By: #### BNP, CBC, BMP, HS TROP #### [facility] [address] [place] [address] USANo Panel InformationOrdered By: Wendy Ochoa on 91-60-9823Pnhxryca Creatinine Clearance (Chem88.70[facility] HospitalNucleated erythrocytes [Presence] in Blood by Automated countOrdered By: Wendy Ochoa on 31-46-1246Lucowxadw RBC Auto Ql (Bld)0.2 /100{WBC}0-0.5 [facility] HospitalPlatelet mean volume [Entitic volume] in Blood by Automated countOrdered By: Wendy Ochoa on 40-65-4052Fcvpufos mean volume (Bld) [Entitic vol]7.9 fLNormal6.6-10.1FSelect Medical Cleveland Clinic Rehabilitation Hospital, Edwin ShawComment on above:Performed By: #### BNP, CBC, BMP, HS TROP #### [facility] [address] [place] [address] USAPlatelets [#/volume] in Blood by Automated countOrdered By: Wendy Ochoa on 43-71-7314Euxjbkfxe (Bld) [#/Vol]343 10*3/uWAcxtsd017-952 [facility] HospitalComment on above:Performed By: #### BNP, CBC, BMP, HS TROP #### [facility] [address] [place] [address] USAPotassium [Moles/volume] in Serum or PlasmaOrdered By: Wendy Ochoa on 60-42-4569Jyttxdfmc [Moles/Vol]3.7 mmol/LNormal3.5-5.1 [facility] HospitalComment on above:Performed By: #### BNP, CBC, BMP, HS TROP #### [facility] [address] [place], [place] [address] USARespiratory (Upper) Panel, PCRon 18-99-7050Vmhptbmqzom (Upper) Panel, PCRAdenovirus Not detected Bordetella parapertussis Not detected Chlamydia pneumoniae Not detected Coronavirus 229E Not detected Coronavirus HKU1 Not detected Coronavirus NL63 Not detected Coronavirus OC43 Not detected Influenza A Not detected Influenza B Not detected Human Metapneumovirus Not detected Mycoplasma pneumoniae Not detected Parainfluenza Virus 1 Not detected Parainfluenza Virus 2 Not detected Parainfluenza Virus 3 Not detected Parainfluenza Virus 4 Not detected Bordetella pertussis-ptxP Not detected Human Rhino/Enterovirus Not detected Resp. Syncytial Virus Not detected COVID-19 Detected/Not Detected Not detected Blank Space FLUA TEST INCLUDES Influenza A tests for the following clinically FLUA TEST INCLUDES significant subtypes: FLUA TEST INCLUDES - Influenza A FLUA TEST INCLUDES - Influenza A H1 FLUA TEST INCLUDES - Influenza A H1 2009 FLUA TEST INCLUDES - Influenza A H3 Blank Space PERFORMED BY: [facility] [address] [place] [address] PATHOLOGIST PSYCHOLOGICAL OPERATIONS GUADALUPE FREITAS M.D.[facility] Physician GroupComment on above: Performed By: #### RESP PANEL UPP., BIOFIRECOVNOTDE #### [facility] [address] [place] [address] USARespiratory pathogens DNA and RNA panel - Nasopharynx by ZEINAB with non-probe detectionOrdered By: Wendy Ochoa on 48-81-5110Kwbkuqkunfs pathogens DNA and RNA panel ZEINAB+non-probe (Nph)[facility] Serum or plasma anion gap determinationOrdered By: Wendy Ochoa on 10-27-2024 Anion gap [Moles/Vol]10.9 mmol/LNormal6.0-15.0[facility] Comment on above:Performed By: #### BNP, CBC, BMP, HS TROP #### [facility] [address] [place] [address] USASodium [Moles/volume] in Serum or PlasmaOrdered By: Wendy Ochoa on 82-25-5850Oxweqx [Moles/Vol]140 mmol/WHudxuq053-367BzrrmgtsiOhio State East HospitalComment on above:Performed By: #### BNP, CBC, BMP, HS TROP #### [address] [address] USATroponin I High Sensitivityon 45-59-0836Dflwwqgi I High Wiqfxksvhko2Fwxbfz9-20[facility] Physician GroupComment on above:Result Comment: The Troponin units of report have been changed to meet the Chest Pain Accreditation requirement, element EC5.M1l2. Troponin units are changed from pg/ml to ng/L. Also, the decimal is removed and results are in whole numbers. PERFORMED BY: [place] [address] PATHOLOGIST PSYCHOLOGICAL OPERATIONS GUADALUPE FREITAS M.D.Performed By: #### HS TROP #### [place] [address] USATroponin I High Movbivrfdtk3Speufl0-84[facility]n [facility] Physician GroupComment on above:Result Comment: The Troponin units of report have been changed to meet the Chest Pain Accreditation requirement, element EC5.M1l2. Troponin units are changed from pg/ml to ng/L. Also, the decimal is removed and results are in whole numbers. PERFORMED BY: [place] [address] PATHOLOGIST PSYCHOLOGICAL OPERATIONS GUADALUPE FREITAS M.D.Performed By: #### BNP, CBC, BMP, HS TROP #### [address] [id number] USATroponin I.cardiac [Mass/volume] in Serum or Plasma by Detection limit <= 0.01 ng/mLOrdered By: Wendy Ochoa on 63-57-4224Guegkhhl I.cardiac DL <= 0.01 ng/mL [Mass/Vol]3 ng/L0-20[facility] Comment on above:The Troponin units of report have been changed to meet the Chest Pain Accreditation requirement, element EC5.M1l2. Troponin units are changed from pg/ml to ng/L. Also, the decimal is removed and results are in whole numbers.Urea nitrogen [Mass/volume] in Serum or PlasmaOrdered By: Wendy Ochoa on 15-40-9758Ympm nitrogen [Mass/Vol]13 mg/dLNormal09-28[facility] HospitalComment on above:Performed By: #### BNP, CBC, BMP, HS TROP #### [facility] [address] [id number] USANo Panel InformationOrdered By: Radiologist Radiology on 82-17-5054[facility] Work Phone: No Panel Informationon 16-84-6314Umaslvljd Study observation (narrative)[facility]OM[facility] HealthcareXR CHEST 2V FRONTAL/LATon 10-26-2024* * *Final Report* * * DATE OF EXAM: Oct 26 2024 8:51AM NRX [id number] - XR CHEST 2V FRONTAL/LAT / PROCEDURE REASON: multiple diagnoses * * * * Physician Interpretation * * * * RESULT: EXAMINATION: CHEST RADIOGRAPH (2 VIEW FRONTAL and LATERAL) CLINICAL HISTORY: Radiation-induced pulmonary fibrosis (HCC) Shortness of breath MQ: XC2_6 EXAM DATE/TIME: 10/26/2024 8:51 AM COMPARISON: PET/CT 08/03/2024 RESULT: Lines, tubes, and devices: None. Lungs and pleura: Left mid lung zone/perihilar and left lung base opacity, likely related to atelectasis/scarring is appreciated, progressed in appearance. The right lung is clear. Small left pleural effusion is suspected, also new finding. The pulmonary vasculature is within normal limits.. Cardiomediastinal silhouette: Normal cardiomediastinal silhouette. Bones and soft tissues: Mild degenerative change within the thoracic spine. IMPRESSION: Newly appearing/progression of left mid and lower lung zone opacities, small left pleural effusion, likely progressed from prior PET/CT examination. These findings may be posttreatment related. Correlation with follow-up chest x-rays or, for immediate further evaluation, CT scan of the chest would be recommended. Transcribe Date/Time: Oct 26 2024 11:18A Dictated by: ESPINOZA DIAZ MD This examination was interpreted and the report reviewed and electronically signed by: ESPINOZA DIAZ MD on Oct 26 2024 11:22AM EST Thank you for allowing us to participate in the care of your patient. Should there be any questions regarding this interpretation, please call [phone]. If you are unable to reach us at the number above, please feel free to contact [facility] at [phone]. [id number]^AGFA_IDC^SI^ACNCCFRadiology, Radiologist, - 10/26/2024 * * *Final Report* * * DATE OF EXAM: Oct 26 2024 8:51AM NRX [id number] - XR CHEST 2V FRONTAL/LAT / PROCEDURE REASON: multiple diagnoses * * * * Physician Interpretation * * * * RESULT: EXAMINATION: CHEST RADIOGRAPH (2 VIEW FRONTAL and LATERAL) CLINICAL HISTORY: Radiation-induced pulmonary fibrosis (HCC) Shortness of breath MQ: XC2_6 EXAM DATE/TIME: 10/26/2024 8:51 AM COMPARISON: PET/CT 08/03/2024 RESULT: Lines, tubes, and devices: None. Lungs and pleura: Left mid lung zone/perihilar and left lung base opacity, likely related to atelectasis/scarring is appreciated, progressed in appearance. The right lung is clear. Small left pleural effusion is suspected, also new finding. The pulmonary vasculature is within normal limits.. Cardiomediastinal silhouette: Normal cardiomediastinal silhouette. Bones and soft tissues: Mild degenerative change within the thoracic spine. IMPRESSION: Newly appearing/progression of left mid and lower lung zone opacities, small left pleural effusion, likely progressed from prior PET/CT examination. These findings may be posttreatment related. Correlation with follow-up chest x-rays or, for immediate further evaluation, CT scan of the chest would be recommended. Transcribe Date/Time: Oct 26 2024 11:18A Dictated by: ESPINOZA DIAZ MD This examination was interpreted and the report reviewed and electronically signed by: ESPINOZA DIAZ MD on Oct 26 2024 11:22AM EST Thank you for allowing us to participate in the care of your patient. Should there be any questions regarding this interpretation, please call [phone]. If you are unable to reach us at the number above, please feel free to contact [facility] eRadiology at [phone]. [id number]^AGFA_IDC^SI^ACN [facility] HealthcareXR CHEST 2V FRONTAL/LATNormalCTriHealth McCullough-Hyde Memorial HospitalXR Chest PA and Lateralon 10-26-2024* * *Final Report* * * DATE OF EXAM: Oct 26 2024 8:51AM NRX 5291 - XR CHEST 2V FRONTAL/LAT / PROCEDURE REASON: multiple diagnoses * * * * Physician Interpretation * * * * RESULT: EXAMINATION: CHEST RADIOGRAPH (2 VIEW FRONTAL & LATERAL) CLINICAL HISTORY: Radiation-induced pulmonary fibrosis (HCC) Shortness of breath MQ: XC2_6 EXAM DATE/TIME: 10/26/2024 8:51 AM COMPARISON: PET/CT 08/03/2024 RESULT: Lines, tubes, and devices: None. Lungs and pleura: Left mid lung zone/perihilar and left lung base opacity, likely related to atelectasis/scarring is appreciated, progressed in appearance. The right lung is clear. Small left pleural effusion is suspected, also new finding. The pulmonary vasculature is within normal limits.. Cardiomediastinal silhouette: Normal cardiomediastinal silhouette. Bones and soft tissues: Mild degenerative change within the thoracic spine. DIVISION OF RADIOLOGYProvider, [facility] [employer] - 10/26/2024 * * *Final Report* * * DATE OF EXAM: Oct 26 2024 8:51AM NRX 5291 - XR CHEST 2V FRONTAL/LAT / PROCEDURE REASON: multiple diagnoses * * * * Physician Interpretation * * * * RESULT: EXAMINATION: CHEST RADIOGRAPH (2 VIEW FRONTAL & LATERAL) CLINICAL HISTORY: Radiation-induced pulmonary fibrosis (HCC) Shortness of breath MQ: XC2_6 EXAM DATE/TIME: 10/26/2024 8:51 AM COMPARISON: PET/CT 08/03/2024 RESULT: Lines, tubes, and devices: None. Lungs and pleura: Left mid lung zone/perihilar and left lung base opacity, likely related to atelectasis/scarring is appreciated, progressed in appearance. The right lung is clear. Small left pleural effusion is suspected, also new finding. The pulmonary vasculature is within normal limits.. Cardiomediastinal silhouette: Normal cardiomediastinal silhouette. Bones and soft tissues: Mild degenerative change within the thoracic spine. IMPRESSION IMPRESSION: Newly appearing/progression of left mid and lower lung zone opacities, small left pleural effusion, likely progressed from prior PET/CT examination. These findings may be posttreatment related. Correlation with follow-up chest x-rays or, for immediate further evaluation, CT scan of the chest would be recommended. Transcribe Date/Time: Oct 26 2024 11:18A Dictated by: ESPINOZA DIAZ MD This examination was interpreted and the report reviewed and electronically signed by: ESPINOZA DIAZ MD on Oct 26 2024 11:22AM EST Thank you for allowing us to participate in the care of your patient. Should there be any questions regarding this interpretation, please call [phone]. If you are unable to reach us at the number above, please feel free to contact [facility] eRadiology at [phone]. [facility] Hospital, [facility] ShawCNPNon 46-58-1029FQDKYwsndwWiqxlglnp Clinic ClevelandCBC W Auto Differential panel (Bld)on 67-99-2522Uidpuiyfz (Bld) [#/Vol]0.04 10*3/uLNINF [facility] ShawDifferential cell count method Nom (Bld)AutoCNorwalk Memorial Hospital Eosinophils (Bld) [#/Vol]0.81 10*3/uLHighNINFSelect Medical [facility] Clinic Rehabilitation Hospital, Edwin ShawImmature granulocytes (Bld) [#/Vol]NINFCNorwalk Memorial HospitalImmature granulocytes/100 WBC (Bld)0.3 %[facility] Hospital, Edwin ShawLymphocytes (Bld) [#/Vol]1.62 10*3/uLSelect Medical [facility] Clinic Rehabilitation Hospital, [facility] Monocytes (Bld) [#/Vol]0.65 10*3/uLNINFSelect Medical Cleveland Clinic Rehabilitation Hospital, Edwin ShawNeutrophils (Bld) [#/Vol] 4.62 10*3/uLSelect Medical Cleveland Clinic Rehabilitation Hospital, Edwin ShawNucleated RBC (Bld) [#/Vol]NINWooster Community Hospital Nucleated RBC/100 WBC (Bld) [Ratio]0 %/100 WBCSelect Medical Cleveland Clinic Rehabilitation Hospital, Edwin ShawPlatelet mean volume (Bld) [Entitic vol]9.3 fL9.0 - 12.7 fLClevelfirsthealth montgomery memorial hospital ClinicPlatelets (Bld) [#/Vol]268 10*3/uLSelect Medical Cleveland Clinic Rehabilitation Hospital, Edwin ShawWBC (Bld) [#/Vol]7.76 10*3/uLSelect Medical [facility] Clinic Rehabilitation [facility], [facility] Basophils (Bld) [#/Vol]0.04 10*3/uLNormal<0.11CUpper Valley Medical Center on above:Order Comment: Specimen Type: BLOOD SPECIMENOrdering Facility: [facility] Address:[address] [place] [address] Performed By: #### 39408-7 ####[facility] LABCLIA [id number] [place], [place] [address]Whsqzdskq/100 WBC (Bld)0.5 % [facility] on above:Order Comment: Specimen Type: BLOOD SPECIMENOrdering Facility: [facility] Address:[address] [place], [place] [address]Performed By: #### 27589-5 ####[facility] LABCLIA [id number] [place] [address] Differential cell count method Nom (Bld)AutoNormalCTriHealth McCullough-Hyde Memorial Hospital Comment on above:Order Comment: Specimen Type: BLOOD SPECIMENOrdering Facility: [facility] Address:[address] [place] [address] Performed By: #### 48351-9 ####[facility] LABCLIA [id number] [place], [place] [address]Lyhrhtysxre (Bld) [#/Vol]0.81 10*3/uLHigh<0.46[facility] on above:Order Comment: Specimen Type: BLOOD SPECIMENOrdering Facility: [facility] Address:[address] [place], [place] [address]Performed By: #### 01707-9 ####[facility] LABCLIA [id number] [place], [place] [address]Heokifvxmiv/100 WBC (Bld)10.4 %[facility] on above:Order Comment: Specimen Type: BLOOD SPECIMENOrdering Facility: [facility] Address:[address] [place], [place] [address]Performed By: #### 52720-8 ####[facility] LABIA [id number] [place], [place] [address]Hoeowwagsaa distribution width (RBC) [Ratio]14.0 %Gxejdp14.5-15.0[facility] on above: Order Comment: Specimen Type: BLOOD SPECIMENOrdering Facility: [facility] Address:[address] [place], [place] [address]Performed By: #### 61311- 8 ####[facility] LABIA [id number] [place], [place] [address]Ttanmszmkf (Bld) [Volume fraction]37.4 %Low39.0-51.0 [facility] on above:Order Comment: Specimen Type: BLOOD SPECIMENOrdering Facility: [facility] Address:[address] [place], [place] [address]Performed By: #### 69998-6 ####[facility] LABIA [id number] [place], [place] [address]Hxcexvrvdy (Bld) [Mass/Vol]12.7 g/dLLow13.0-17.0[facility] on above:Order Comment: Specimen Type: BLOOD SPECIMENOrdering Facility: [facility] Address:[address] [place], [place] [address]Performed By: #### 32271- 8 ####[facility] LABIA [id number] [place], [place] [address]Lwsbpyze granulocytes (Bld) [#/Vol]10*3/uLNormal<0.10 [facility] on above:Order Comment: Specimen Type: BLOOD SPECIMENOrdering Facility: [facility] Address:[address] [place], [place] [address]Performed By: #### 94534-2 ####[facility] LABIA [id number] [place], [place] [address]Aanmvnme granulocytes/100 WBC (Bld)0.3 %NormalTwin City Hospital on above: Order Comment: Specimen Type: BLOOD SPECIMENOrdering Facility: [facility] Address:[address] [place], [place] [address]Performed By: #### 56143- 8 ####[facility] LABCLIA [id number] [place], [place] [address]Gtihezkgkkj (Bld) [#/Vol]1.62 10*3/uLNormal1.00-4.00 [facility] on above:Order Comment: Specimen Type: BLOOD SPECIMENOrdering Facility: [facility] Address:[address] [place], [place] [address]Performed By: #### 57037-1 ####[facility] LABCLIA [id number] [place], [place] [address]Appqqxsazxn/100 WBC (Bld)20.9 %NormalTwin City Hospital on above:Order Comment: Specimen Type: BLOOD SPECIMENOrdering Facility: [facility] Address:[address] [place], [place] [address]Performed By: #### 46127-2 ####[facility] LABCLIA [id number] [place], [place] [address]OKX (RBC) [Entitic mass]29.8 abYzmrtg90.0-34.0[facility] on above:Order Comment: Specimen Type: BLOOD SPECIMENOrdering Facility: [facility] Address:[address] [place], [place] [address]Performed By: #### 46026-3 ####[facility] LABCLIA [id number] [place], [place] [address]LQNP (RBC) [Mass/Vol]34.0 g/eTHringv95.5-36.0[facility] on above: Order Comment: Specimen Type: BLOOD SPECIMENOrdering Facility: [facility] Address:[address] [place], [place] [address]Performed By: #### 53134- 8 ####[facility] LABCLIA [id number] [place], [place] [address]OYG (RBC) [Entitic vol]87.8 aBEcsrtb53.0-100.0[facility] on above:Order Comment: Specimen Type: BLOOD SPECIMENOrdering Facility: [facility] Address:[address] [place], [place] [address]Performed By: #### 30155-1 ####[facility] LABCLIA [id number] [place], [place] [address]Mxvgvpist (Bld) [#/Vol]0.65 10*3/uLNormal<0.87[facility] on above:Order Comment: Specimen Type: BLOOD SPECIMENOrdering Facility: [facility] Address:[address] [place], [place] [address]Performed By: #### 16271- 8 ####[facility] LABCLIA [id number] [place], [place] [address]Xxxpprdjn/100 WBC (Bld)8.4 %NormalTwin City Hospital on above:Order Comment: Specimen Type: BLOOD SPECIMENOrdering Facility: [facility] Address:[address] [place], [place] [address]Performed By: #### 28477-3 ####[facility] LABCLIA [id number] [place], [place] [address]Lvdylszmsub (Bld) [#/Vol]4.62 10*3/uLNormal1.45-7.50[facility] on above:Order Comment: Specimen Type: BLOOD SPECIMENOrdering Facility: [facility] Address:[address] [place], [place] [address]Performed By: #### 46850-9 ####[facility] LABCLIA [id number] [place], [place] [address]Puhmxwdhial/100 WBC (Bld)59.5 %NormalTwin City Hospital on above:Order Comment: Specimen Type: BLOOD SPECIMENOrdering Facility: [facility] Address:[address] [place], [place] [address]Performed By: #### 14941-4 ####[facility] LABCLIA [id number] [place], [place] [address]Iflqaqrtt RBC (Bld) [#/Vol] 10*3/uLNormal<0.01[facility] on above:Order Comment: Specimen Type: BLOOD SPECIMENOrdering Facility: [facility] Address:[address] [place], [place] [address]Performed By: #### 51908-6 ####[facility] LABCLIA [id number] [place], [place] [address]Ptyteufzn RBC/100 WBC (Bld) [Ratio]0.0 /100 WBCNormal [facility] on above:Order Comment: Specimen Type: BLOOD SPECIMENOrdering Facility: [facility] Address:[address] [place], [place] [address]Performed By: #### 38982-6 ####[facility] LABCLIA [id number] [place], [place] [address]Cwlunnff mean volume (Bld) [Entitic vol]9.3 fLNormal9.0-12.7CUpper [facility] on above:Order Comment: Specimen Type: BLOOD SPECIMENOrdering Facility: [facility] Address:[address] [place] [address] Performed By: #### 40080-5 ####[facility] LABIA [id number] [place], [place] [address]Efglguvxd (Bld) [#/Vol]268 10*3/hPCrzqfp394-736QiwwlihudTwin City Hospital on above:Order Comment: Specimen Type: BLOOD SPECIMENOrdering Facility: [facility] Address:[address] [place], [place] [address]Performed By: #### 54991-2 ####[facility] LABCLIA [id number] [place], [place] [address]BZN (Bld) [#/Vol]4.26 10*6/uLNormal4.20-6.00[facility] on above:Order Comment: Specimen Type: BLOOD SPECIMENOrdering Facility: [facility] Address:[address] [place], [place] [address]Performed By: #### 30955-6 ####[facility] LABCLIA [id number] [place], [place] [address]VMB (Bld) [#/Vol]7.76 10*3/uLNormal3.70-11.00[facility] on above: Order Comment: Specimen Type: BLOOD SPECIMENOrdering Facility: [facility] Address:[address] [place], [place] [address]Performed By: #### 59899- 8 ####[facility]ITALMARIB[facility] LABCLIA [id number] [place], [place] [address]SBC CBC W AUTO DIFF BLDon 82-30-4592CLY BASOPHILS # BLD AUTO0.04NIHumboldt General Hospital DIFFERENTIAL METHOD BLDAutoNOMBoone Hospital Center EOSINOPHIL # BLD AUTO0.81HighNIHumboldt General Hospital LYMPHOCYTES # BLD AUTO1.62 NOMBoone Hospital Center MONOCYTES # BLD AUTO0.65NIHumboldt General Hospital NEUTROPHILS # BLD AUTO4.62NOUniversity Health Truman Medical CenterF NRBC # BLD AUTO<0.01NIHumboldt General Hospital NRBC/100 WBC BLD-RTO0/100 WBCNOSSM [facility] PLATELET # BLD [id number] [facility] PMV BLD AUTO9.3 fL9.0 - 12.7 fLNOSSM [facility] WBC # BLD AUTO 7.76NOCT HealthcareIM GRANULOCYTES # BLD AUTO<0.03NIPsychiatric Hospital at Vanderbilt GRANULOCYTES/LEUK NFR BLD AUTO0.3 %NOM HealthcareSpecimen Type: BLOOD SPECIMEN Ordering Facility: [facility] Address: [address] [id number] Original Ordering Provider: ARLEY Ziegler 09-16-[address]CKVGS[address]opn [address] Elizabeth HospitalComprehensive metabolic 2000 panelOrdered By: Dash Handley on 15-51-7717Pqolnbf [Mass/Vol]4.5 g/dL3.9 - 4.9 g/dLWeirsdale ClinicALP [Catalytic activity/Vol]78 U/L38 - 113 U/LCleveland ClinicALT [Catalytic activity/Vol]22 U/L10 - 54 U/LCleveland ClinicAnion gap [Moles/Vol]11 mmol/L8 - 15 mmol/LCleveland ClinicAST [Catalytic activity/Vol]20 U/L14 - 40 U/LCleveland ClinicBilirubin [Mass/Vol]0.4 mg/dL0.2 - 1.3 mg/dLClegalion hospital ClinicCalcium [Mass/Vol]10 mg/dL8.5 - 10.2 mg/dLWeirsdale ClinicChloride [Moles/Vol]101 mmol/L 98 - 107 mmol/LCleveland ClinicCO2 [Moles/Vol]29 mmol/L22 - 30 mmol/LCleveland ClinicCreatinine [Mass/Vol]0.78 mg/dL0.73 - 1.22 mg/dLWeirsdale ClinicGFR/1.73 sq M.predicted among non-blacks MDRD (S/P/Bld) [Vol rate/Area]97 mL/min/{1.73_m2}- PINFCleveland ClinicComment on above:Estimated Glomerular Filtration Rate (eGFR) is calculated using the 2020 CKD-EPI creatinine equation. This equation utilizes serum creatinine, sex, and age as parameters. The creatinine assay has traceable calibration to isotope dilution-mass spectrometry. Refer to KDIGO guidelines for clinical interpretation. In patients with unstable renal function, e.g. those with acute kidney injury, the eGFRmay not accurately reflect actual GFR.Glucose [Mass/Vol]145 mg/fVMqys97 - 99 mg/dL [facility], Edwin ShawComment on above:The [place] Diabetes Association (ADA) provides guidance for cutoff values for fasting glucose andrandom glucose. The ADA defines fasting as no caloric intake for at least 8 hours. Fasting plasma gl ucose results between 100 to 125 mg/dL indicate increased risk for diabetes (prediabetes). Fasting plasma glucose results greater than or equal to 126 mg/dL meet the criteria for diagnosis of diabetes. In the absence of unequivocal hyperglycemia, results should be confirmed by repeat testing. In a patient with classic symptoms of hyperglycemia or hyperglycemic crisis, random plasma glucose results greater than or equal to 200 mg/dL meet the criteria for diagnosis of diabetes. Reference: Standards of Medical Care in Diabetes 2016, [place] Diabetes Association. Diabetes Care. 2016.39(Suppl 1). Interpretation and review of laboratory resultsAbnormalCleveland ClinicPotassium [Moles/Vol]3.9 mmol/L3.7 - 5.1 mmol/LCmartins ferry hospital ClinicProtein [Mass/Vol]7 g/dL 6.3 - 8.0 g/dLWeirsdale ClinicSodium [Moles/Vol]141 mmol/L136 - 144 mmol/L [facility] ShawUrea nitrogen [Mass/Vol]13 mg/dL9 - 24 mg/dLSelect Medical Specialty Hospital - AkronComprehensive metabolic 2000 panelon 15-26-4209Dlcdmlo [Mass/Vol]4.5 g/dLNormal3.9-4.9CU[facility] on above:Order Comment: Specimen Type: BLOOD SPECIMENOrdering Facility: [facility] Address:[address] [place], [place] [address]Performed By: #### 2532- 0, 76296-3 ####[facility] LABCLIA [id number] [place], [place] [address]WUY [Catalytic activity/Vol]78 U/DBbyrto85-472 [facility] on above:Order Comment: Specimen Type: BLOOD SPECIMENOrdering Facility: [facility] Address:[address] [place], [place] [address]Performed By: #### 2532-0, 78816-0 ####[facility] LABCLIA [id number] [place], [place] [address]NGG [Catalytic activity/Vol]22 U/ACynqoo67-15ZezuanmodTwin City Hospital on above:Order Comment: Specimen Type: BLOOD SPECIMENOrdering Facility: [facility] Address:[address] [place], [place] [address]Performed By: #### 2532-0, 70743-1 ####[facility] LABCLIA [id number] [place], [place] [address]Ygecj gap [Moles/Vol]11 mmol/LNormal8-15 [facility] on above:Order Comment: Specimen Type: BLOOD SPECIMENOrdering Facility: [facility] Address:[address] [place], [place] [address]Performed By: #### 2532-0, ####[facility] LABCLIA [id number] [place], [place] [address]LGY [Catalytic activity/Vol]20 U/KQqedze93-79RijlkhqpqTwin City Hospital on above:Order Comment: Specimen Type: BLOOD SPECIMENOrdering Facility: [facility] Address:[address] [place], [place] [address]Performed By: #### 2532-0, ####[facility] LABCLIA [id number] [place], [place] [address]Gskispmlu [Mass/Vol]0.4 mg/dLNormal0.2-1.3 [facility] on above:Order Comment: Specimen Type: BLOOD SPECIMENOrdering Facility: [facility] Address:[address] [place], [place] [address]Performed By: #### 2532-0, ####[facility] LABCLIA [id number] [place], [place] [address]Fstkalr [Mass/Vol]10.0 mg/dLNormal8.5-10.2CUpper [facility] on above: Order Comment: Specimen Type: BLOOD SPECIMENOrdering Facility: [facility] Address:[address] [place], [place] [address]Performed By: #### 2532- 0, 44698-4 ####[facility] LABCLIA [id number] [place], [place] [address]Evbmqomf [Moles/Vol]101 mmol/KRefyjt01-323MorixzzujTwin City Hospital on above:Order Comment: Specimen Type: BLOOD SPECIMENOrdering Facility: [facility] Address:[address] [place], [place] [address]Performed By: #### 2532-0, 48286-6 ####[facility] LABCLIA [id number] [place], [place] [address]FS8 [Moles/Vol]29 mmol/ITbgjtf43-11TiaaltnsvTwin City Hospital on above:Order Comment: Specimen Type: BLOOD SPECIMENOrdering Facility: [facility] Address:[address] [place], [place] [address]Performed By: #### 2532- 0, 77953-2 ####[facility] LABCLIA [id number] [place], [place] [address]Euuhxynpib [Mass/Vol]0.78 mg/dLNormal0.73-1.22 [facility] on above:Order Comment: Specimen Type: BLOOD SPECIMENOrdering Facility: [facility] Address:[address] [place], [place] [address]Performed By: #### 2532-0, 01229-6 ####[facility] LABCLIA [id number] [place], [place] [address]jCSQea SerPlBld CKD-EPI 869231 mL/min/1.73m???Normal>=60[facility] Comment on above:Order Comment: Specimen Type: BLOOD SPECIMENOrdering Facility: [facility] Address:[address] [place], [place] [address]Result Comment: Estimated Glomerular Filtration Rate (eGFR) is calculated using the 2020 CKD-EPI creatinine equation. This equation utilizes serum creatinine, sex, and age as parameters. The creatinine assay has traceable calibration to isotope dilution-mass spectrometry. Refer to KDIGO guidelines for clinical interpretation. In patients with unstable renal function, e.g. those with acute kidney injury, the eGFR may not accurately reflect actual GFR.Performed By: #### 2532-0, ####[facility] LABCLIA [id number] [place], [place] [address]Hzavkjh [Mass/Vol]145 mg/dKPczq81-63 [facility] on above:Order Comment: Specimen Type: BLOOD SPECIMENOrdering Facility: [facility] Address:[address] [place], [place] [address]Result Comment: The [place] Diabetes Association (ADA) provides guidance for cutoff values for fasting glucose and random glucose. The ADA defines fasting as no caloric intake for at least 8 hours. Fasting plasma glucose results between 100 to 125 mg/dL indicate increased risk for diabetes (prediabetes).Fasting plasma glucose results greater than or equal to 126 mg/dL meet the criteria for diagnosis of diabetes. In the absence of unequivocal hyperglycemia, results should be confirmed by repeattesting. In a patient with classic symptoms of hyperglycemia or hyperglycemic crisis, random plasmaglucose results greater than or equal to 200 mg/dL meet the criteria for diagnosis of diabetes.Reference: Standards of Medical Care in Diabetes 2016, [place] Diabetes Association. Diabetes Care. 2016.39(Suppl 1).Performed By: #### 2532-0, 08687-5 ####[facility] LABCLIA [id number] [place], [place] [address]Rtlpzyqtp [Moles/Vol]3.9 mmol/LNormal3.7-5.1 [facility] on above:Order Comment: Specimen Type: BLOOD SPECIMENOrdering Facility: [facility] Address:[address] [place] [address]Sojvfxerz By: #### 2532-0, ####[facility]MAR[facility] LABCLIA [id number] [place], [place] [address]Swrqevl [Mass/Vol]7.0 g/dLNormal6.3-8.0[facility] on above:Order Comment: Specimen Type: BLOOD SPECIMENOrdering Facility: [facility] Address:[address] [place], [place] [address]Performed By: #### 2532- 0, ####[facility] LABCLIA [id number] [place], [place] [address]Wgehlv [Moles/Vol]141 mmol/DRvasoc471-474HcqqxbwenTwin City Hospital on above:Order Comment: Specimen Type: BLOOD SPECIMENOrdering Facility: [facility] Address:[address] [place], [place] [address]Performed By: #### 2532-0, 06225-2 ####[facility] LABCLIA [id number] [place], [place] [address]Ajvk nitrogen [Mass/Vol]13 mg/dLNormal9-24[facility] on above: Order Comment: Specimen Type: BLOOD SPECIMENOrdering Facility: [facility] Address:[address] [place], [place] [address]Performed By: #### 2532- 0, 94094-3 ####[facility] LABCLIA [id number] [place], [place] [address]Ohrjthuz SerPl-mCncon 14-89-9797Eowsnusj [Mass/Vol] 37.4 ng/iZQvzzeu22.3-565.7CU[facility] on above:Order Comment: Specimen Type: BLOOD SPECIMENOrdering Facility: [facility] Address:[address] [place], [place] [address]Performed By: #### 2276- 4, 70213-8, 3016-3 ####[facility] LABCLIA [id number] [place] [address] [place] OF AMERICAFolate SerPl-mCncon 93-47-5720Zvysqh [Mass/Vol]ng/mLNormal>4.7CU[facility] on above:Order Comment: Specimen Type: BLOOD SPECIMENOrdering Facility: [facility] Address:[address] [place], [place] [address]Result Comment: A result of > 20 ng/mL is not necessarily indicative of a pathologic or treatable condition: it reflects a limitation of the test methodology.Assay reference range: 4.8 to 24.2 ng/mL. Suitable for detection of folate deficiency.Reference:Folate III (Folate III) [package insert V 1.0 Uzbek]. [employer], [place], [place]: January 2015.Performed By: #### 2132-9, 2284-8 ####[facility] LABCLIA [id number] [place] [id number] [place] OF AMERICAIron and Iron binding capacity panelon 94-62-4989Ymlh [Mass/Vol]70 ug/lNYpxghi74-069BvrotzhwdSt. Elizabeth HospitalComment on above:Order Comment: Specimen Type: BLOOD SPECIMENOrdering Facility: [facility] Address:[address] [place], [place] [address]Performed By: #### 2276-4, 30659-5, 3016-3 ####[facility] LABIA [id number] [place] [id number] [place] STATES OF AMERICAIron binding capacity [Mass/Vol]372 ug/iUUwxzmp889-201WpqwwbhcnSt. Elizabeth HospitalCommymichigan medical center west branch on above:Order Comment: Specimen Type: BLOOD SPECIMENOrdering Facility: [facility] Address:[address] [place], [place] [address]Performed By: #### 2276-4, 29182-5, 3016-3 ####[facility]ENTERIA [id number] [place] [id number] [facility] AMERICAIron/TIBC [Molar ratio]18.8 %Tycbab33.0-57.0[facility] Comment on above:Order Comment: Specimen Type: BLOOD SPECIMENOrdering Facility: [facility] Address:[address] [place], [place] [address] Performed By: #### 2276-4, 31485-3, 3016-3 ####[facility] LABIA [id number] [address] [address] [place] OF AMERICALACTATE DEHYDROGENASEon 45-57-5245MNR [Catalytic activity/Vol]152 U/L135 - 225 U/LCleveland ClinicLDH SerPl-cCncon 43-10-5114QRL [Catalytic activity/Vol] 152 U/CFzinvs610-418KjcllsnodSt. Elizabeth HospitalComment on above:Order Comment: Specimen Type: BLOOD SPECIMENOrdering Facility: [facility] Address:[address] [place] [place], [place] [address]Xucvtshfr By: #### 2532-0, 45053-8 ####[facility] LABCLIA [id number] [place], [place] [address]PAD [Catalytic activity/Vol]on 70-78-1473Jezpsaadnrlkvq and review of laboratory resultsNoMercer County Community Hospitaloratory - Hematology and Cell countson 87-20-5177Bhjhvdaqa/100 WBC (Bld)0.5 %[facility]OM HealthcareEosinophils/100 WBC (Bld)10.4 %[facility]Barry RoadErythrocyte distribution width (RBC) [Ratio]14 %11.5 - 15.0 %[facility]–Barry RoadHematocrit (Bld) [Volume fraction]37.4 %Low39.0 - 51.0 %[facility]–Bar[facility] RoadHemoglobin (Bld) [Mass/Vol]12.7 g/dLLow13.0 - 17.0 g/dLSaint Luke's North Hospital–Barry RoadLymphocytes/100 WBC (Bld)20.9 %[facility]–Barry RoadMCH (RBC) [Entitic mass]29.8 pg26.0 - 34.0 pgSaint Luke's North Hospital–Barry RoadMCHC (RBC) [Mass/Vol]34 g/dL30.5 - 36.0 g/dLSaint Luke's North Hospital–Barry RoadMCV (RBC) [Entitic vol]87.8 fL 80.0 - 100.0 fLSaint Luke's North Hospital–Barry RoadMonocytes/100 WBC (Bld)8.4 %[facility] Neutrophils/100 WBC (Bld)59.5 %[facility]–Barry RoadRBC (Bld) [#/Vol]4.26 10*6/uL4.20 - 6.00 m/uLUTAH STATE [facility]ITAL HealthcareNo Panel Informationon 13-40-9292Rcliblupkcqqpn and review of laboratory resultsAbnormalGundersen [facility]osc[facility] SerPl-aCnc on 39-98-0348CVB Qn0.576 m[IU]/LNormal0.270-4.200[facility] Comment on above:Order Comment: Specimen Type: BLOOD SPECIMENOrdering Facility: [facility] Address:[address] [place] [address] Performed By: #### 2276-4, 15266-4, 3016-3 ####[facility] LABCLIA [id number] [address] STATES OF MARTINS FERRY HOSPITALVit B12 SerPl-ncon 11-10-1230Hmsvkrsbz (Vitamin B12) [Mass/Vol]761 pg/uUJhuiiv903-2501Iomrnrsew Clinic ClevelandComment on above:Order Comment: Specimen Type: BLOOD SPECIMENOrdering Facility: [facility] Address:[address], [place] [address]Performed By: #### 2132-9, 2284-8 ####[facility] LABCLIA [id number] [address] STATES OF MARTINS FERRY HOSPITALCNOVon 90-00-9314JLJXOuxdco St. Elizabeth HospitalCNPNon 69-06-8484VERSHrfmfpAhrcpivmh Clinic [place] MR BRAIN W AND WO CONTRAST (ROUTINE)on 39-63-9048WT BRAIN W AND WO CONTRAST (ROUTINE)EXAM: MRI Brain With and Without Contrast. REASON FOR EXAM: Lung cancer, chronic right common and internal carotid occlusion. COMPARISON: CTA head and neck July 31, 2024. TECHNIQUE: Sagittal T1, axial diffusion, axial T1, coronal T2, axial T2, axial FLAIR, axial gradient echo, axial T1 postcontrast, coronal T1 postcontrast, axial ADC images of the brain were obtained.8 cc of Vueway IV contrast without reported complication. FINDINGS: There is no acute intracranial hemorrhage, mass, infarct, midline shift, hydrocephalus, extra-axialmass effect. The ventricles and sulci are symmetric. The barger-white interface is preserved. The postcontrast images demonstrate no abnormal intra-axial enhancement. The vascular structures are notable for asymmetric enhancement of the right internal carotid artery flow void. The T2 images show increased T2 signal at this location concordant with the CTA findings. The orbits, globes, optic nerves, extraocular muscles are symmetric. The sella turcica is normal. The infundibulum is nondisplaced. The optic chiasm is normal. The internal auditory canals and cerebellum are normal. There is a subtle T2 hyperintense, FLAIR hypointense, nonenhancing 1.21 cm focus of the inferior left occipital lobe with cortical thinning. Meckel's caves are symmetric. Cranial nerves are symmetric. Bilateral, widely scattered T2 and FLAIR hyperintense signal foci in the deep white matter are noted. No enhancement or mass effect. Blooming artifact of the left temporal convexity consistent with previous craniectomy. IMPRESSION: 1. No MRI evidence of acute intracranial hemorrhage, mass, infarct. 2. 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 There is filling of the right MCA distribution. The CTA is more sensitive in this regard. 3. Global cerebral volume loss and white matter changes typically age-related volume loss and chronic microvascular changes. 4. Focal encephalomalacia of the inferior left occipital lobe. No hemosiderin to suggest previous hemorrhage. This is most likely postprocedural given adjacent craniectomy, or chronic ischemic. *This report is generated using voice recognition reporting (NanoGram). On occasion Hedvige erroneously drops words from the report or replaces the spoken word with similar sounding words. Please call with any questions/concerns regarding this report.* Dictated and transcribed 08/08/24/dpd This report has been electronically signed and approved by the interpreting radiologist.NormalNot AvailableCNPNon 48-58-4842UNUWXojaclUfihhlaex Clinic ClevelandACT Plas-mCncon 29-34-0431Ebnqoapgorlls (P) [Mass/Vol]8.4 pg/mLNormal 7.2-63.3CTriHealth McCullough-Hyde Memorial HospitalComment on above:Order Comment: Specimen Type: BLOOD SPECIMENOrdering Facility: [facility] Address:[address] [place], [place] [address]Result Comment: ACTH Reference Range: 7-10 am: 7.2 - 63.3 pg/mLPerformed By: #### 2141-0 ####[facility] LABCLIA [id number] [place] [address] [place] OF AMERICACB W Auto Differential panel (Bld)on 66-25-3957Qhzbfzuty (Bld) [#/Vol] 0.06 10*3/uLNINFSelect Medical [facility] Clinic Rehabilitation Hospital, Edwin ShawDifferential cell count method Nom (Bld)Auto [facility] ShawEosinophils (Bld) [#/Vol]0.5 10*3/uLHighNIBlanchard Valley Health [facility] Immature granulocytes (Bld) [#/Vol]NINFCNorwalk Memorial HospitalImmature granulocytes/100 WBC (Bld)0.2 %[facility], [facility] ShawLymphocytes (Bld) [#/Vol]1.72 10*3/[facility] Health SystemMonocytes (Bld) [#/Vol]0.74 10*3/uLNINFSelect Medical [facility] Clinic Rehabilitation Hospital, Edwin ShawNeutrophils (Bld) [#/Vol]5.16 10*3/[facility] Health SystemNucleated RBC (Bld) [#/Vol]NINFCNorwalk Memorial HospitalNucleated RBC/100 WBC (Bld) [Ratio]0 %/100 WBCSelect Medical Cleveland Clinic Rehabilitation Hospital, Edwin ShawPlatelet mean volume (Bld) [Entitic vol]9 fL9.0 - 12.7 fLCNorwalk Memorial HospitalPlatelets (Bld) [#/Vol]283 10*3/[facility] Health SystemWBC (Bld) [#/Vol]8.2 10*3/[facility] Basophils (Bld) [#/Vol]0.06 10*3/Normal<0.11CU[facility] on above:Order Comment: Specimen Type: BLOOD SPECIMENOrdering Facility: [facility] Address:[address] [place] [address] Performed By: #### 70530-7 ####[facility] LABIA [id number] [place], [place] [address]Lrlahxuyb/100 WBC (Bld)0.7 % NormalTwin City Hospital on above:Order Comment: Specimen Type: BLOOD SPECIMENOrdering Facility: [facility] Address:[address] [place], [place] [address]Performed By: #### 69815-6 ####[facility] LABCLIA [id number] [place] [address] Differential cell count method Nom (Bld)AutoNormalCTriHealth McCullough-Hy[facility] Hospital Comment on above:Order Comment: Specimen Type: BLOOD SPECIMENOrdering Facility: [facility] Address:[address] [place] [address] Performed By: #### 08776-5 ####[facility] LABCLIA [id number] [place], [place] [address]Ecjxhjmupio (Bld) [#/Vol]0.50 10*3/uLHigh<0.46[facility] on above:Order Comment: Specimen Type: BLOOD SPECIMENOrdering Facility: [facility] Address:[address] [place], [place] [address]Performed By: #### 19702-6 ####[facility] LABCLIA [id number] [place], [place] [address]Jlxwqahjefx/100 WBC (Bld)6.1 %NormalTwin City Hospital on above:Order Comment: Specimen Type: BLOOD SPECIMENOrdering Facility: [facility] Address:[address] [place], [place] [address]Performed By: #### 91075-9 ####[facility] LABCLIA [id number] [place], [place] [address]Wbdyhejofhl distribution width (RBC) [Ratio]14.1 %Qrekta24.5-15.0[facility] on above: Order Comment: Specimen Type: BLOOD SPECIMENOrdering Facility: [facility] Address:[address] [place], [place] [address]Performed By: #### 13791- 8 ####[facility] LABCLIA [id number] [place], [place] [address]Wblxxjmtze (Bld) [Volume fraction]34.6 %Low39.0-51.0 [facility] on above:Order Comment: Specimen Type: BLOOD SPECIMENOrdering Facility: [facility] Address:[address] [place], [place] [address]Performed By: #### 99094-8 ####[facility] LABCLIA [id number] [place], [place] [address]Eggtfdtozg (Bld) [Mass/Vol]11.6 g/dLLow13.0-17.0[facility] on above:Order Comment: Specimen Type: BLOOD SPECIMENOrdering Facility: [facility] Address:[address] [place], [place] [address]Performed By: #### 37296- 8 ####[facility] LABCLIA [id number] [place], [place] [address]Rapkktng granulocytes (Bld) [#/Vol]10*3/uLNormal<0.10 [facility] on above:Order Comment: Specimen Type: BLOOD SPECIMENOrdering Facility: [facility] Address:[address] [place], [place] [address]Performed By: #### 49130-8 ####[facility] LABCLIA [id number] [place], [place] [address]Pwxqhgby granulocytes/100 WBC (Bld)0.2 %NormalTwin City Hospital on above: Order Comment: Specimen Type: BLOOD SPECIMENOrdering Facility: [facility] Address:[address] [place], [place] [address]Performed By: #### 07451- 8 ####[facility] LABCLIA [id number] [place], [place] [address]Cahzzdfrjwe (Bld) [#/Vol]1.72 10*3/uLNormal1.00-4.00 [facility] on above:Order Comment: Specimen Type: BLOOD SPECIMENOrdering Facility: [facility] Address:[address] [place], [place] [address]Performed By: #### 32446-3 ####[facility] LABIA [id number] [place], [place] [address]Hjxfxfdpglb/100 WBC (Bld)21.0 %NormalCleveland Clinic ClevelandComment on above:Order Comment: Specimen Type: BLOOD SPECIMENOrdering Facility: [facility] Address:[address] [place], [place] [address]Performed By: #### 86026-8 ####[facility] LABCLIA [id number] [place], [place] [address]AAH (RBC) [Entitic mass]29.3 wcSfxvar39.0-34.0[facility] on above:Order Comment: Specimen Type: BLOOD SPECIMENOrdering Facility: [facility] Address:[address] [place], [place] [address]Performed By: #### 63701-3 ####[facility] LABCLIA [id number] [place], [place] [address]ZJOJ (RBC) [Mass/Vol]33.5 g/qTWkaxxl34.5-36.0[facility] on above: Order Comment: Specimen Type: BLOOD SPECIMENOrdering Facility: [facility] Address:[address] [place], [place] [address]Performed By: #### 80827- 8 ####[facility] LABCLIA [id number] [place], [place] [address]FRA (RBC) [Entitic vol]87.4 rTVajsvp86.0-100.0[facility] on above:Order Comment: Specimen Type: BLOOD SPECIMENOrdering Facility: [facility] Address:[address] [place], [place] [address]Performed By: #### 78969-4 ####[facility] LABCLIA [id number] [place], [place] [address]Gnnxybghh (Bld) [#/Vol]0.74 10*3/uLNormal<0.87[facility] on above:Order Comment: Specimen Type: BLOOD SPECIMENOrdering Facility: [facility] Address:[address] [place], [place] [address]Performed By: #### 86906- 8 ####[facility] LABCLIA [id number] [place], [place] [address]Oeydngozf/100 WBC (Bld)9.0 %NormalTwin City Hospital on above:Order Comment: Specimen Type: BLOOD SPECIMENOrdering Facility: [facility] Address:[address] [place], [place] [address]Performed By: #### 98858-1 ####[facility] LABCLIA [id number] [place], [place] [address]Lssctnzlilz (Bld) [#/Vol]5.16 10*3/uLNormal1.45-7.50[facility] on above:Order Comment: Specimen Type: BLOOD SPECIMENOrdering Facility: [facility] [facility] Address:[address] [place], [place] [address]Performed By: #### 70775-0 ####[facility] LABCLIA [id number] [place], [place] [address]Haklskbvzpu/100 WBC (Bld)63.0 %NormalTwin City Hospital on above:Order Comment: Specimen Type: BLOOD SPECIMENOrdering Facility: [facility] Address:[address] [place], [place] [address]Performed By: #### 21943-8 ####[facility] LABCLIA [id number] [place], [place] [address]Ilzsohnsu RBC (Bld) [#/Vol] 10*3/uLNormal<0.01[facility] on above:Order Comment: Specimen Type: BLOOD SPECIMENOrdering Facility: [facility] Address:[address] [place], [place] [address]Performed By: #### 52087-5 ####[facility] LABIA [id number] [place], [place] [address]Qjoiswwfr RBC/100 WBC (Bld) [Ratio]0.0 /100 WBCNormal [facility] on above:Order Comment: Specimen Type: BLOOD SPECIMENOrdering Facility: [facility] Address:[address] [place], [place] [address]Performed By: #### 63445-2 ####[facility] LABCLIA [id number] [place], [place] [address]Ujzxrlto mean volume (Bld) [Entitic vol]9.0 fLNormal9.0-12.7CUpper [facility] Medical [facility] on above:Order Comment: Specimen Type: BLOOD SPECIMENOrdering Facility: [facility] Address:[address] [place] [address] Performed By: #### 49931-3 ####[facility] LABCLIA [id number] [place], [place] [address]Gludydqaz (Bld) [#/Vol]283 10*3/gEUjhitf996-801VwrromnqsTwin City Hospital on above:Order Comment: Specimen Type: BLOOD SPECIMENOrdering Facility: [facility] Address:[address] [place], [place] [address]Performed By: #### 44449-9 ####[facility] LABCLIA [id number] [place], [place] [address]EHP (Bld) [#/Vol]3.96 10*6/uLLow4.20-6.00[facility] on above:Order Comment: Specimen Type: BLOOD SPECIMENOrdering Facility: [facility] Address:[address] [place], [place] [address]Performed By: #### 71454-8 ####[facility] LABCLIA [id number] [place], [place] [address]LVR (Bld) [#/Vol]8.20 10*3/uL Normal3.70-11.00[facility] on above:Order Comment: Specimen Type: BLOOD SPECIMENOrdering Facility: [facility] Address:[address] [place], [place] [address]Performed By: #### 57758-7 ####[facility] LABCLIA [id number] [place], [place] [address]RET CBC W AUTO DIFF BLDon 83-40-1031VXL BASOPHILS # BLD AUTO0.06NIHumboldt General Hospital DIFFERENTIAL METHOD BLDAutoNOMBoone Hospital Center EOSINOPHIL # BLD AUTO0.5HighNIHumboldt General Hospital LYMPHOCYTES # BLD AUTO1.72 NOMS [facility] Memorial HospitalF MONOCYTES # BLD AUTO0.74NIHumboldt General Hospital NEUTROPHILS # BLD AUTO5.16NOSSM [facility] NRBC # BLD AUTO<0.01NINFTexas County Memorial Hospital NRBC/100 WBC BLD-RTO0/100 WBCTexas County Memorial Hospital PLATELET # BLD IEUT235WJGRTexas County Memorial Hospital PMV BLD AUTO9 fL9.0 - 12.7 fLTexas County Memorial Hospital WBC # BLD AUTO8.2 NOMCarondelet HealthIM GRANULOCYTES # BLD AUTO<0.03NIPsychiatric Hospital at Vanderbilt GRANULOCYTES/LEUK NFR BLD AUTO0.2 %NOMCarondelet HealthSpecimen Type: BLOOD SPECIMEN Ordering [facility]: [facility] Address: [address] [place] [address] Original Ordering Provider: ARLEY OROZCOLINISYNCComprehensive metabolic 2000 panelOrdered By: Dash Handley on 74-26-8901Twyxvcm [Mass/Vol]4.4 g/dL3.9 - 4.9 g/dLWeirsdale ClinicALP [Catalytic activity/Vol]79 U/L38 - 113 U/LCleveland ClinicALT [Catalytic activity/Vol]11 U/L10 - 54 U/LCleveland ClinicAnion gap [Moles/Vol]13 mmol/L8 - 15 mmol/LCleveland ClinicAST [Catalytic activity/Vol]12 U/LLow14 - 40 U/LCleveland ClinicBilirubin [Mass/Vol]0.3 mg/dL0.2 - 1.3 mg/dL Weirsdale ClinicCalcium [Mass/Vol]9.8 mg/dL8.5 - 10.2 mg/dLSelect Medical [facility] Chloride [Moles/Vol]106 mmol/L98 - 107 mmol/LCleveland ClinicCO2 [Moles/Vol]27 mmol/L22 - 30 mmol/LCleveland ClinicCreatinine [Mass/Vol]0.67 mg/dLLow0.73 - 1.22 mg/dLSelect Medical [facility] Clinic Rehabilitation Hospital, [facility] ShawGFR/1.73 sq M.predicted among non-blacks MDRD (S/P/Bld) [Vol rate/Area]102 mL/min/{1.73_m2}- PINFCOhioHealth Riverside Methodist Hospital on above:Estimated Glomerular Filtration Rate (eGFR) is calculated using the 2020 CKD-EPI creatinine equation. This equation utilizes serum creatinine, sex, and age as parameters. The creatinine assay has traceable calibration to isotope dilution-mass spectrometry. Refer to KDIGO guidelines for clinical inte rpretation. In patients with unstable renal function, e.g. those with acute kidney injury, the eGFRmay not accurately reflect actual GFR.Glucose [Mass/Vol] 90 mg/dL74 - 99 mg/dLBlanchard Valley Health System [facility] on above:The [place] Diabetes Association (ADA) provides guidance for cutoff values for fasting glucose and random glucose. The ADA defines fasting as no caloric intake for at least 8 hours. Fasting plasma glucose results between 100 to 125 mg/dL indicate increased risk for diabetes (prediabetes). Fasting plasma glucose results greater than or equal to 126 mg/dL meet the criteria for diagnosis of diabetes. In the absence of unequivocal hyperglycemia, results should be confirmed by repeat testing. In a patient with classic symptoms of hyperglycemia or hyperglycemic crisis, random plasma glucose results greater than or equal to 200 mg/dL meet the criteria for diagnosis of diabetes. Reference: Standards of Medical Care in Diabetes 2016, [place] Diabetes Association. Diabetes Care. 2016.39(Suppl 1). Interpretation and review of laboratory resultsAbnormalClevelfirsthealth montgomery memorial hospital ClinicPotassium [Moles/Vol]4 mmol/L3.7 - 5.1 mmol/LCmartins ferry hospital ClinicProtein [Mass/Vol]6.4 g/dL 6.3 - 8.0 g/dLKettering Memorial Hospitalodium [Moles/Vol]146 mmol/GNmlv144 - 144 mmol/L [facility] ShawUrea nitrogen [Mass/Vol]19 mg/dL9 - 24 mg/dLMount Carmel Health Systemprehensive metabolic 2000 panelon 37-40-7799Ngsyhai [Mass/Vol]4.4 g/dLNormal3.9-4.9CUpper Valley Medical Center on above:Order Comment: Specimen Type: BLOOD SPECIMENOrdering Facility: [facility] Address:[address] [place], [place] [address]Performed By: #### 25583- 8 ####[facility] LABCLIA [id number] [facility] YURYDIGN[facility] MEDICAL CENTERTANYABIGELOW, [place] [address]YXV [Catalytic activity/Vol]79 U/UVwykvw16-836ZphbfhpwqTwin City Hospital on above:Order Comment: Specimen Type: BLOOD SPECIMENOrdering Facility: [facility] Address:[address] [place], [place] [address]Performed By: #### 20041-1 ####[facility] LABCLIA [id number] [place], [place] [address]CLQ [Catalytic activity/Vol]11 U/PJknbna94-24CcjqlgfoiTwin City Hospital on above:Order Comment: Specimen Type: BLOOD SPECIMENOrdering Facility: [facility] Address:[address] [place], [place] [address]Performed By: #### 16875- 8 ####[facility] LABCLIA [id number] [facility] [place], [place] [address]Yrddy gap [Moles/Vol]13 mmol/LNormal8-15[facility] on above:Order Comment: Specimen Type: BLOOD SPECIMENOrdering Facility: [facility] Address:[address] [place], [place] [address]Performed By: #### 60978-2 ####[facility] LABCLIA [id number] [place], [place] [address]XIC [Catalytic activity/Vol]12 U/WEfi61-49MmyyrzidbTwin City Hospital on above:Order Comment: Specimen Type: BLOOD SPECIMENOrdering Facility: [facility] Address:[address] [place], [place] [address]Performed By: #### 62145-1 ####[facility] LABCLIA [id number] [place] [address] Bilirubin [Mass/Vol]0.3 mg/dLNormal0.2-1.3CUpper Valley Medical Center on above:Order Comment: Specimen Type: BLOOD SPECIMENOrdering Facility: [facility] Address:[address] [place], [place] [address]Performed By: #### 11484-4 ####[facility] LABCLIA [id number] [facility] HOSPITALRENEDIGNITY HEALTH ST[facility] [place] [address]Wkyctlc [Mass/Vol]9.8 mg/dLNormal8.5-10.2CUpper Valley Medical Center on above:Order Comment: Specimen Type: BLOOD SPECIMENOrdering Facility: [facility] Address:[address] [place], [place] [address]Performed By: #### 87656-6 ####[facility] LABCLIA [id number] K[facility] CENTERRENEDIGNITY HEALTH ST[facility] WEST[facility] MEDICAL CENTERTESSANORTH [place], [place] [address]Scicefga [Moles/Vol]106 mmol/QGhcmkt34-484VzgybevviTwin City Hospital on above: Order Comment: Specimen Type: BLOOD SPECIMENOrdering Facility: [facility] Address:[address] [place], [place] [address]Performed By: #### 63584- 8 ####[facility] LABCLIA [id number] [facility] JEROME COTTONDIGNITY HEALTH ST. [facility] MEDICAL CENTERTESSANORTH [place], [place] [address]ZF5 [Moles/Vol]27 mmol/PZuoirn27-67WrjdfukncTwin City Hospital on above:Order Comment: Specimen Type: BLOOD SPECIMENOrdering Facility: [facility] Address:[address] [place], [place] [address]Performed By: #### 11672-6 ####[facility] LABCLIA [id number] [facility] SUN[facility] MEDICAL CENTERRENECENTRAL FALLS, [place] [address]Aqatlpbkwg [Mass/Vol]0.67 mg/dL Low0.73-1.22[facility] on above:Order Comment: Specimen Type: BLOOD SPECIMENOrdering Facility: [facility] Address:[address] [place], [place] [address]Performed By: #### 05016-9 ####[facility] LABCLIA [id number] [place] [address] Creatinine and Glomerular filtration rate.predicted panel (S/P/Bld)102 mL/min/1.73m???Normal>=60[facility] on above:Order Comment: Specimen Type: BLOOD SPECIMENOrdering Facility: [facility] Address:[address] [place], [place] [address]Result Comment: Estimated Glomerular Filtration Rate (eGFR) is calculated using the 2020 CKD-EPI cre atinine equation. This equation utilizes serum creatinine, sex, and age as parameters. The creatinine assay has traceable calibration to isotope dilution- mass spectrometry. Refer to KDIGO guidelines for clinical interpretation. In patients with unstable renal function, e.g. those with acute kidney injury, the eGFR may not accurately reflect actual GFR.Performed By: #### 57048-1 ####[facility] LABCLIA [id number] [place], [place] [address]Peulvdo [Mass/Vol]90 mg/aMNlalob44-44VzxbbfnghTwin City Hospital on above:Order Comment: Specimen Type: BLOOD SPECIMENOrdering Facility: [facility] Address:[address] [place], [place] [address]Result Comment: The [place] Diabetes Association (ADA) provides guidance for cutoff values for fasting glucose and random glucose. The ADA defines fasting as no caloric intake for at least 8 hours. Fasting plasma glucose results between 100 to 125 mg/dL indicate increased risk for diabetes (prediab etes).Fasting plasma glucose results greater than or equal to 126 mg/dL meet the criteria for diagnosis of diabetes. In the absence of unequivocal hyperglycemia, results should be confirmed by repeattesting. In a patient with classic symptoms of hyperglycemia or hyperglycemic crisis, random plasmaglucose results greater than or equal to 200 mg/dL meet the criteria for diagnosis of diabetes.Reference: Standards of Medical Care in Diabetes 2016, [place] Diabetes Association. Diabetes Care. 2016.39(Suppl 1).Performed By: #### 02123-1 ####[facility] LABCLIA [id number] [place], [place] [address]Vnzumxfiz [Moles/Vol]4.0 mmol/LNormal3.7-5.1CUpper Valley Medical Center on above:Order Comment: Specimen Type: BLOOD SPECIMENOrdering Facility: [facility] Address:[address] [place], [place] [address]Performed By: #### 09555-2 ####[facility] LABCLIA [id number] [place], [place] [address]Genrlpr [Mass/Vol]6.4 g/dLNormal6.3-8.0[facility] on above:Order Comment: Specimen Type: BLOOD SPECIMENOrdering Facility: [facility] Address:[address] [place], [place] [address]Performed By: #### 25606- 8 ####[facility] LABCLIA [id number] [place], [place] [address]Vixoem [Moles/Vol]146 mmol/AFyug386-179RpkjdyeohTwin City Hospital on above:Order Comment: Specimen Type: BLOOD SPECIMENOrdering Facility: [facility] Address:[address] [place], [place] [address]Performed By: #### 69308-0 ####[facility] LABCLIA [id number] [place], [place] [address]Glho nitrogen [Mass/Vol]19 mg/dLNormal9-24[facility] on above:Order Comment: Specimen Type: BLOOD SPECIMENOrdering Facility: [facility] Address:[address] [place], [place] [address]Performed By: #### 79314-5 ####[facility] LABCLIA [id number] [place], [place] [address]Zwxlruwvmugso (P) [Mass/Vol]on 37-10-8091Nportwupwgvgmp and review of laboratory resultsNormalCParkview Health Bryan HospitalGLUCOSE, BLOOD (POC)on 73-02-4854Ifommtj [Mass/Vol]91 mg/dL74 - 99 mg/dLSelect Medical [facility] Comment on above:Location:[facility], [address] [place] [address] , [place], [place], [address] The Accu-Chek Inform II glucose meter has not been approved for testing on patients receiving intensive medical intervention or therapy and results from this point of care glucose test should not be used for patient management decisions in these cases. Inaccurate results may also occur from other interfering factors, such as N-acetylcysteine (blood concentrations of greater than 5mg/dL), galactose, extremes of hematocrit (<10 or >65), or high doses of ascorbic acid (vitamin C) greater than 3mg/dL. Consider alternate testing mechanisms (e.g. core lab, blood gas instrument) in the above situations. [facility] Centeroratory - Chemistry and Chemistry - challengeon 31-85-5040HSR Qn3.17 m[IU]/LCleveland ClinicCorticotropin (P) [Mass/Vol]8.4 pg/mL7.2 - 63.3 pg/mLCleveland ClinicComment on above:ACTH Reference Range: 7-10 am: 7.2 - 63.3 pg/mLLaboratory - Hematology and Cell countson 81-71-5983Udqiejpix/100 WBC (Bld) 0.7 %NOMS HealthcareEosinophils/100 WBC (Bld)6.1 %NOM HealthcareErythrocyte distribution width (RBC) [Ratio]14.1 %11.5 - 15.0 %NOM HealthcareHematocrit (Bld) [Volume fraction]34.6 %Low39.0 - 51.0 %NOM HealthcareHemoglobin (Bld) [Mass/Vol]11.6 g/dLLow13.0 - 17.0 g/dLNOCox Walnut LawnLymphocytes/100 WBC (Bld)21 %NOMS [facility]st HospitalMCH (RBC) [Entitic mass]29.3 pg26.0 - 34.0 pgNOMS Healthcare MCHC (RBC) [Mass/Vol]33.5 g/dL30.5 - 36.0 g/dLNOCox Walnut LawnMCV (RBC) [Entitic vol]87.4 fL80.0 - 100.0 fLNOCT HealthcareMonocytes/100 WBC (Bld)9 %NOMS HealthcareNeutrophils/100 WBC (Bld)63 %NOMS HealthcareRBC (Bld) [#/Vol]3.96 10*6/uLLow4.20 - 6.00 m/[facility] CenterNM PET/CT SKULL-THIGH SUBQon 08-03-2024 * * *Final Report* * * DATE OF EXAM: Aug 03 2024 10:02AM NRN 0063 - NM PET/CT SKULL-THIGH SUBQ / PROCEDURE REASON: multiple diagnoses * * * * Physician Interpretation * * * * RESULT: EXAMINATION: BODY FDG PET-CT CLINICAL HISTORY: Malignant neoplasm of upper lobe of left lung. Squamous cell carcinoma status post neoadjuvant chemotherapy and SBRT. EXAM CATEGORY: Subsequent treatment strategy. TECHNIQUE: Radiopharmaceutical was administered intravenously followed by PET imaging from the eyes to thighs. Free breathing, low dose CT of the same body region was acquired without IV contrast for attenuation correction and anatomic localization. Unenhanced imaging is limited for the evaluation of some pathology and the acquired CT was not designed to produce diagnostic CT scan quality. Physiologic/non-pathologic uptake in some body regions could confound or obscure some pathology. * CT Dose-Length Product (DLP): 217 mGy*cm * CT Dose Reduction Employed: Yes * Blood glucose: 91 mg/dL * Injection site: Right Forearm-Antecubital * Injected activity: 9.9 mCi * Uptake Time: 66 minutes * Radiopharmaceutical: G44-Kqhdxipdhaqghgernk (FDG) COMPARISON: FDG PET/CT 04/03/2024 CORRELATION: No relevant prior imaging available RESULT: REFERENCES: FDG uptake is used as a surrogate marker for glucose metabolism. All reported standardized uptake values represent maximum SUV (SUVmax) per body weight, unless otherwise specified. SUV reference values, as follows: * Blood Pool (Descending Aorta): SUVmax 2.0 * Background Liver: SUVmax 3.2; SUVmean 2.0 Localizer Images: No additional findings. HEAD AND NECK: Head: No radiotracer avid lesion or mass effect in the imaged intracranial compartment. Aerodigestive Tract: No radiotracer avid lesion. Lymph Nodes: No radiotracer avid lymphadenopathy. Neck Soft Tissues: No radiotracer avid thyroid nodule. CHEST: Lungs and Pleura: Residual nodular opacity with mild uptake in the left lower lobe is not substantially changed, measuring SUV max 2.6, 1.6 x 1.5 cm (4:99), previously SUV max 2.3, 1.6 x 1.5 cm. There is new metabolically active posterior left mid lung subpleural reticular opacity measuring SUV max 5.7 as well as new metabolically active left upper lobe peribronchovascular opacity measuring SUV max 4.2, 1.6 x 1.1 cm (4:97). No pleural effusion. Lymph Nodes: No radiotracer avid lymphadenopathy. Mediastinum: No radiotracer avid mass. Cardiovascular: Blood pool activity. No pericardial effusion. Normal heart size. Thoracic aortic and coronary artery calcifications. Chest Wall: No radiotracer avid soft tissue lesion. ABDOMEN AND PELVIS: Hepatobiliary: No radiotracer avid lesion. No measurable mass. Spleen: No radiotracer avid lesion. No splenomegaly. Pancreas: No radiotracer avid lesion. Adrenals: No radiotracer avid nodule. Urinary Tract: Physiologic radiotracer excretion in the renal collecting systems and urinary bladder. Bilateral nonobstructing nephrolithiasis. No hydronephrosis. Redemonstrated left posterolateral urinary bladder diverticulum. GI Tract: Segmentally increased bowel uptake is likely physiologic or secondary to medication effects (e.g. metformin). No focal radiotracer avid lesion. No dilated bowel. Peritoneum: No radiotracer avid lesion. No ascites. Lymph Nodes: No radiotracer avid lymphadenopathy. Vasculature: Blood pool activity. Vascular calcifications without an abdominal aortic aneurysm. Pelvic Organs: No radiotracer avid lesion. MUSCULOSKELETAL: Bones: No radiotracer avid lesion. Degenerative changes. Soft Tissues: No radiotracer avid lesion. IMPRESSION Since FDG PET/CT 03/26/2024, PRIMARY DISEASE SITE: * Residual left lower lobe nodular opacity with mild uptake is not substantially changed. * New metabolically active posterior left mid lung subpleural reticular opacity and new metabolically active left upper lobe peribronchovascular opacity are favored to be benign/inflammatory, for example representing postradiation change. Attention on follow-up is recommended to ensure resolution. ROWENA DISEASE: * No metabolically active hilar or mediastinal lymphadenopathy. METASTATIC DISEASE: * No metabolically active distant metastases. Transcribe Date/Time: Aug 03 2024 5:24P Dictated by: MEKA NOLASCO MD This examination was interpreted and the report reviewed and electronically signed by: MEKA NOLASCO MD on Aug 03 2024 5:41PM EST Thank you for allowing us to participate in the care of your patient. Should there be any questions regarding this interpretation, please call [phone]. If you are unable to reach us at the number above, please feel free to contact [facility] at [phone] (more content not included)...CCFRadiology, Radiologist, - 08/03/2024 * * *Final Report* * * DATE OF EXAM: Aug 03 2024 10:02AM NRN 0063 - NM PET/CT SKULL-THIGH SUBQ / PROCEDURE REASON: multiple diagnoses * * * * Physician Interpretation * * * * RESULT: EXAMINATION: BODY FDG PET-CT CLINICAL HISTORY: Malignant neoplasm of upper lobe of left lung. Squamous cell carcinoma status post neoadjuvant chemotherapy and SBRT. EXAM CATEGORY: Subsequent treatment strategy. TECHNIQUE: Radiopharmaceutical was administered intravenously followed by PET imaging from the eyes to thighs. Free breathing, low dose CT of the same body region was acquired without IV contrast for attenuation correction and anatomic localization. Unenhanced imaging is limited for the evaluation of some pathology and the acquired CT was not designed to produce diagnostic CT scan quality. Physiologic/non-pathologic uptake in some body regions could confound or obscure some pathology. * CT Dose-Length Product (DLP): 217 mGy*cm * CT Dose Reduction Employed: Yes * Blood glucose: 91 mg/dL * Injection site: Right Forearm-Antecubital * Injected activity: 9.9 mCi * Uptake Time: 66 minutes * Radiopharmaceutical: D06-Anhnnkjrqkejfykwbr (FDG) COMPARISON: FDG PET/CT 04/03/2024 CORRELATION: No relevant prior imaging available RESULT: REFERENCES: FDG uptake is used as a surrogate marker for glucose metabolism. All reported standardized uptake values represent maximum SUV (SUVmax) per body weight, unless otherwise specified. SUV reference values, as follows: * Blood Pool (Descending Aorta): SUVmax 2.0 * Background Liver: SUVmax 3.2; SUVmean 2.0 Localizer Images: No additional findings. HEAD AND NECK: Head: No radiotracer avid lesion or mass effect in the imaged intracranial compartment. Aerodigestive Tract: No radiotracer avid lesion. Lymph Nodes: No radiotracer avid lymphadenopathy. Neck Soft Tissues: No radiotracer avid thyroid nodule. CHEST: Lungs and Pleura: Residual nodular opacity with mild uptake in the left lower lobe is not substantially changed, measuring SUV max 2.6, 1.6 x 1.5 cm (4:99), previously SUV max 2.3, 1.6 x 1.5 cm. There is new metabolically active posterior left mid lung subpleural reticular opacity measuring SUV max 5.7 as well as new metabolically active left upper lobe peribronchovascular opacity measuring SUV max 4.2, 1.6 x 1.1 cm (4:97). No pleural effusion. Lymph Nodes: No radiotracer avid lymphadenopathy. Mediastinum: No radiotracer avid mass. Cardiovascular: Blood pool activity. No pericardial effusion. Normal heart size. Thoracic aortic and coronary artery calcifications. Chest Wall: No radiotracer avid soft tissue lesion. ABDOMEN AND PELVIS: Hepatobiliary: No radiotracer avid lesion. No measurable mass. Spleen: No radiotracer avid lesion. No splenomegaly. Pancreas: No radiotracer avid lesion. Adrenals: No radiotracer avid nodule. Urinary Tract: Physiologic radiotracer excretion in the renal collecting systems and urinary bladder. Bilateral nonobstructing nephrolithiasis. No hydronephrosis. Redemonstrated left posterolateral urinary bladder diverticulum. GI Tract: Segmentally increased bowel uptake is likely physiologic or secondary to medication effects (e.g. metformin). No focal radiotracer avid lesion. No dilated bowel. Peritoneum: No radiotracer avid lesion. No ascites. Lymph Nodes: No radiotracer avid lymphadenopathy. Vasculature: Blood pool activity. Vascular calcifications without an abdominal aortic aneurysm. Pelvic Organs: No radiotracer avid lesion. MUSCULOSKELETAL: Bones: No radiotracer avid lesion. Degenerative changes. Soft Tissues: No radiotracer avid lesion. IMPRESSION Since FDG PET/CT 03/26/2024, PRIMARY DISEASE SITE: * Residual left lower lobe nodular opacity with mild uptake is not substantially changed. * New metabolically active posterior left mid lung subpleural reticular opacity and new metabolically active left upper lobe peribronchovascular opacity are favored to be benign/inflammatory, for example representing postradiation change. Attention on follow-up is recommended to ensure resolution. ROWENA DISEASE: * No metabolically active hilar or mediastinal lymphadenopathy. METASTATIC DISEASE: * No metabolically active distant metastases. Transcribe Date/Time: Aug 03 2024 5:24P Dictated by: MEKA NOLASCO MD This examination was interpreted and the report reviewed and electronically signed by: MEKA NOLASCO MD on Aug 03 2024 5:41PM EST Thank you for allowing us to participate in the care of your patient. Should there be any questions regarding this interpretation, please call [phone]. If you are unable to reach us at the number above, please feel free to contact [facility] eRadiology at [phone]. (more content not included)...[facility] PET/CT SKULL-THIGH SUBQNormalCChillicothe VA Medical Center Panel InformationOrdered By: Radiologist Radiology on [id number] [facility] Work Phone: No Panel Informationon [id number] and review of laboratory resultsAbnoGrant Regional Health CenterRadiology Study observation (narrative)[facility]PET[facility] Guidance for localization of tumor of Skull base to mid-thigh-- W 18F-FDG Landy 08-03-2024* * *Final Report* * * DATE OF EXAM: Aug 03 2024 10:02AM NRN [id number] - NM PET/CT SKULL-THIGH SUBQ / PROCEDURE REASON: multiple diagnoses * * * * Physician Interpretation * * * * RESULT: EXAMINATION: BODY FDG PET-CT CLINICAL HISTORY: Malignant neoplasm of upper lobe of left lung. Squamous cell carcinoma status post neoadjuvant chemotherapy and SBRT. EXAM CATEGORY: Subsequent treatment strategy. TECHNIQUE: Radiopharmaceutical was administered intravenously followed by PET imaging from the eyes to thighs. Free breathing, low dose CT of the same body region was acquired without IV contrast for attenuation correction and anatomic localization. Unenhanced imaging is limited for the evaluation of some pathology and the acquired CT was not designed to produce diagnostic CT scan quality. Physiologic/non-pathologic uptake in some body regions could confound or obscure some pathology. * CT Dose-Length Product (DLP): 217 mGy*cm * CT Dose Reduction Employed: Yes * Blood glucose: 91 mg/dL * Injection site: Right Forearm-Antecubital * Injected activity: 9.9 mCi * Uptake Time: 66 minutes * Radiopharmaceutical: S23-Ezrmumoytmbeaxwxnz (FDG) COMPARISON: FDG PET/CT 04/03/2024 CORRELATION: No relevant prior imaging available RESULT: REFERENCES: FDG uptake is used as a surrogate marker for glucose metabolism. All reported standardized uptake values represent maximum SUV (SUVmax) per body weight, unless otherwise specified. SUV reference values, as follows: * Blood Pool (Descending Aorta): SUVmax 2.0 * Background Liver: SUVmax 3.2; SUVmean 2.0 Localizer Images: No additional findings. HEAD AND NECK: Head: No radiotracer avid lesion or mass effect in the imaged intracranial compartment. Aerodigestive Tract: No radiotracer avid lesion. Lymph Nodes: No radiotracer avid lymphadenopathy. Neck Soft Tissues: No radiotracer avid thyroid nodule. CHEST: Lungs & Pleura: Residual nodular opacity with mild uptake in the left lower lobe is not substantially changed, measuring SUV max 2.6, 1.6 x 1.5 cm (4:99), previously SUV max 2.3, 1.6 x 1.5 cm. There is new metabolically active posterior left mid lung subpleural reticular opacity measuring SUV max 5.7 as well as new metabolically active left upper lobe peribronchovascular opacity measuring SUV max 4.2, 1.6 x 1.1 cm (4:97). No pleural effusion. Lymph Nodes: No radiotracer avid lymphadenopathy. Mediastinum: No radiotracer avid mass. Cardiovascular: Blood pool activity. No pericardial effusion. Normal heart size. Thoracic aortic and coronary artery calcifications. Chest Wall: No radiotracer avid soft tissue lesion. ABDOMEN AND PELVIS: Hepatobiliary: No radiotracer avid lesion. No measurable mass. Spleen: No radiotracer avid lesion. No splenomegaly. Pancreas: No radiotracer avid lesion. Adrenals: No radiotracer avid nodule. Urinary Tract: Physiologic radiotracer excretion in the renal collecting systems and urinary bladder. Bilateral nonobstructing nephrolithiasis. No hydronephrosis. Redemonstrated left posterolateral urinary bladder diverticulum. GI Tract: Segmentally increased bowel uptake is likely physiologic or secondary to medication effects (e.g. metformin). No focal radiotracer avid lesion. No dilated bowel. Peritoneum: No radiotracer avid lesion. No ascites. Lymph Nodes: No radiotracer avid lymphadenopathy. Vasculature: Blood pool activity. Vascular calcifications without an abdominal aortic aneurysm. Pelvic Organs: No radiotracer avid lesion. MUSCULOSKELETAL: Bones: No radiotracer avid lesion. Degenerative changes. Soft Tissues: No radiotracer avid lesion. IMPRESSION Since FDG PET/CT 03/26/2024, PRIMARY DISEASE SITE: * Residual left lower lobe nodular opacity with mild uptake is not substantially changed. * New metabolically active posterior left mid lung subpleural reticular opacity and new metabolically active left upper lobe peribronchovascular opacity are favored to be benign/inflammatory, for example representing postradiation change. Attention on follow-up is recommended to ensure resolution. ROWENA DISEASE: * No metabolically active hilar or mediastinal lymphadenopathy. METASTATIC DISEASE: * No metabolically active distant metastases. Transcribe Date/Time: Aug 03 2024 5:24P Dictated by: MEKA NOLASCO MD This examination was interpreted and the report reviewed and electronically signed by: MEKA NOLASCO MD on Aug 03 2024 5:41PM EST Thank you for allowing us to participate in the care of your patient. Should there be any questions regarding this interpretation, please call [phone]. If you are unable to reach us at the number above, please feel free to contact [facility] at [phone] (more content not included)...DIVISION OF RADIOLOGYProvider, [facility] [employer] - 08/03/2024 * * *Final Report* * * DATE OF EXAM: Aug 03 2024 10:02AM NRN [id number] - NM PET/CT SKULL-THIGH SUBQ / PROCEDURE REASON: multiple diagnoses * * * * Physician Interpretation * * * * RESULT: EXAMINATION: BODY FDG PET-CT CLINICAL HISTORY: Malignant neoplasm of upper lobe of left lung. Squamous cell carcinoma status post neoadjuvant chemotherapy and SBRT. EXAM CATEGORY: Subsequent treatment strategy. TECHNIQUE: Radiopharmaceutical was administered intravenously followed by PET imaging from the eyes to thighs. Free breathing, low dose CT of the same body region was acquired without IV contrast for attenuation correction and anatomic localization. Unenhanced imaging is limited for the evaluation of some pathology and the acquired CT was not designed to produce diagnostic CT scan quality. Physiologic/non-pathologic uptake in some body regions could confound or obscure some pathology. * CT Dose-Length Product (DLP): 217 mGy*cm * CT Dose Reduction Employed: Yes * Blood glucose: 91 mg/dL * Injection site: Right Forearm-Antecubital * Injected activity: 9.9 mCi * Uptake Time: 66 minutes * Radiopharmaceutical: T67-Nwponsxqxszinmpttx (FDG) COMPARISON: FDG PET/CT 04/03/2024 CORRELATION: No relevant prior imaging available RESULT: REFERENCES: FDG uptake is used as a surrogate marker for glucose metabolism. All reported standardized uptake values represent maximum SUV (SUVmax) per body weight, unless otherwise specified. SUV reference values, as follows: * Blood Pool (Descending Aorta): SUVmax 2.0 * Background Liver: SUVmax 3.2; SUVmean 2.0 Localizer Images: No additional findings. HEAD AND NECK: Head: No radiotracer avid lesion or mass effect in the imaged intracranial compartment. Aerodigestive Tract: No radiotracer avid lesion. Lymph Nodes: No radiotracer avid lymphadenopathy. Neck Soft Tissues: No radiotracer avid thyroid nodule. CHEST: Lungs & Pleura: Residual nodular opacity with mild uptake in the left lower lobe is not substantially changed, measuring SUV max 2.6, 1.6 x 1.5 cm (4:99), previously SUV max 2.3, 1.6 x 1.5 cm. There is new metabolically active posterior left mid lung subpleural reticular opacity measuring SUV max 5.7 as well as new metabolically active left upper lobe peribronchovascular opacity measuring SUV max 4.2, 1.6 x 1.1 cm (4:97). No pleural effusion. Lymph Nodes: No radiotracer avid lymphadenopathy. Mediastinum: No radiotracer avid mass. Cardiovascular: Blood pool activity. No pericardial effusion. Normal heart size. Thoracic aortic and coronary artery calcifications. Chest Wall: No radiotracer avid soft tissue lesion. ABDOMEN AND PELVIS: Hepatobiliary: No radiotracer avid lesion. No measurable mass. Spleen: No radiotracer avid lesion. No splenomegaly. Pancreas: No radiotracer avid lesion. Adrenals: No radiotracer avid nodule. Urinary Tract: Physiologic radiotracer excretion in the renal collecting systems and urinary bladder. Bilateral nonobstructing nephrolithiasis. No hydronephrosis. Redemonstrated left posterolateral urinary bladder diverticulum. GI Tract: Segmentally increased bowel uptake is likely physiologic or secondary to medication effects (e.g. metformin). No focal radiotracer avid lesion. No dilated bowel. Peritoneum: No radiotracer avid lesion. No ascites. Lymph Nodes: No radiotracer avid lymphadenopathy. Vasculature: Blood pool activity. Vascular calcifications without an abdominal aortic aneurysm. Pelvic Organs: No radiotracer avid lesion. MUSCULOSKELETAL: Bones: No radiotracer avid lesion. Degenerative changes. Soft Tissues: No radiotracer avid lesion. IMPRESSION Since FDG PET/CT 03/26/2024, PRIMARY DISEASE SITE: * Residual left lower lobe nodular opacity with mild uptake is not substantially changed. * New metabolically active posterior left mid lung subpleural reticular opacity and new metabolically active left upper lobe peribronchovascular opacity are favored to be benign/inflammatory, for example representing postradiation change. Attention on follow-up is recommended to ensure resolution. ROWENA DISEASE: * No metabolically active hilar or mediastinal lymphadenopathy. METASTATIC DISEASE: * No metabolically active distant metastases. Transcribe Date/Time: Aug 03 2024 5:24P Dictated by: MEKA NOLASCO MD This examination was interpreted and the report reviewed and electronically signed by: MEKA NOLASCO MD on Aug 03 2024 5:41PM EST Thank you for allowing us to participate in the care of your patient. Should there be any questions regarding this interpretation, please call [phone]. If you are unable to reach us at the number above, please feel free to contact [facility] eRadiology at [phone] (more content not included)...[facility] Qnon 02-54-0494Dfuxqplinramof and review of laboratory resultsNormalCleveland [facility] SerPl-aCnc on 05-94-6761GPD Qn3.170 m[IU]/LNormal0.270-4.200[facility] Comment on above:Order Comment: Specimen Type: BLOOD SPECIMENOrdering Facility: [facility] Address:[address] [place] [address] Performed By: #### [id number] ####[facility] LABCLIA [id number] [place] [address] [place] APTReji 57-87-3950qQKE Coag (Bld) [Time]28 oJqzgyy48-76PdnMeavztKing's [facility]aughters [facility] [place] Comment on above:Performed By: #### PTT ####[facility] ([address] [place] [address] VIRBASIC METABOLIC PANELon 07-31-2024 Anion gap [Moles/Vol]4 mmol/LLow5-15ProHunt Regional Medical Center At GreenvilleComment on above: Performed By: #### BMP #### [facility] ([address] [place] [address] VIRCalcium [Mass/Vol]8.6 mg/dLNormal8.5-10.5PMercy Health Perrysburg HospitalComment on above:Performed By: #### BMP #### [facility] ([address] [place] [address] VIRChloride [Moles/Vol]101 mmol/DUiontj19-449ZewTxpswoKing's Daughters Medical Center OhioComment on above:Performed By: #### BMP #### [facility] ([address] [place] [address] VIRCO2 [Moles/Vol]27 mmol/FFaskji45-50NzqWyhtufMercy Health Perrysburg HospitalComment on above:Performed By: #### BMP #### [facility] ([address] [place] [address] VIRCreatinine [Mass/Vol]0.66 mg/dLLow0.70-1.20[facility] OhioComment on above:Result Comment: METHOD TRACEABLE TO IDMS STANDARDPerformed By: #### BMP #### [facility] ([address] [place] [address] VIREGFR (CKD-EPI) NON-RACE DEPENDENT>^90Normal>=60ProHunt Regional Medical Center At GreenvilleComment on above:Result Comment: eGFR not reported due to non- numeric value for Creatinine. Reported eGFR is based on the CKD-EPI 2020 equation that does not use a race coefficient.Performed By: #### BMP #### [facility] ([address] [place] [address] VIRGlucose [Mass/Vol]105 mg/wCPgcx98-22MkoXgykenHunt Regional Medical Center At GreenvilleComment on above:Performed By: #### BMP #### [facility] ([address] [place] [address] VIRPotassium [Moles/Vol]3.2 mmol/LLow3.5-5.0ProHunt Regional Medical Center At GreenvilleComment on above:Performed By: #### BMP #### [facility] ([address] [place] [address] VIRSodium [Moles/Vol]132 mmol/VMtm292-549NauZwjdmdHunt Regional Medical Center At GreenvilleComment on above:Performed By: #### BMP #### [facility] ([address] [place] [address] VIRUrea nitrogen [Mass/Vol]14 mg/dLNormal-ProHunt Regional Medical Center At GreenvilleComment on above:Performed By: #### BMP #### [facility] ([address] [place] [address] VIRBEDSIDE GLUCOSEon 21-89-1352Rzbualm [Mass/Vol]102 mg/dLHigh 65-99ProHunt Regional Medical Center At GreenvilleComment on above:Performed By: #### BEDG #### [facility] ([address] [place] [address] VIRCBC WITH AUTO DIFFERENTIALon 35-53-3906AMUFEZGWA ABSOLUTE COUNT (10*3/UL) BY AUTOMATED COUNT0.1 10*3/uLNormal0.0-0.2ProMedica Kaiser Foundation HospitalCommymichigan medical center west branch on above:Performed By: #### CBCA #### [facility] ([address] [place] [address] VIRBASOPHILS RELATIVE PERCENT BY AUTOMATED COUNT0.6 %Normal [facility] OhioCommymichigan medical center west branch on above:Performed By: #### CBCA #### [facility] ([address] [place] [address] VIRCELLAVISION DIFFERENTIAL TYPEAUTOMATED DIFFERENTIALNormal [facility] OhioComment on above:Performed By: #### CBCA #### [facility] ([address] [place] [address] VIREosinophils (Bld) [#/Vol]0.4 10*3/uLNormal0.0-0.4King[facility] Center OhioComment on above:Performed By: #### CBCA #### [facility] ([address] [place] [address] VIREOSINOPHILS RELATIVE PERCENT BY AUTOMATED COUNT4.1 %Normal [facility] OhioCommymichigan medical center west branch on above:Performed By: #### CBCA #### [facility] ([address] [place] [address] VIRErythrocyte distribution width (RBC) [Ratio]14.6 %Normal 11.5-15ProHunt Regional Medical Center At GreenvilleComment on above:Performed By: #### CBCA #### [facility] ([address] [place] [address] VIRHematocrit (Bld) [Volume fraction]34.0 %Jfp70-27MglSklqbnHunt Regional Medical Center At GreenvilleComment on above:Performed By: #### CBCA #### [facility] ([address] [place] [address] VIRHemoglobin (Bld) [Mass/Vol]11.7 g/hMXjk65-58QuwSgutjgHunt Regional Medical Center At GreenvilleComment on above:Performed By: #### CBCA #### [facility] ([address] [place] [address] VIRLYMPHOCYTES ABSOLUTE COUNT (10*3/UL) BY AUTOMATED COUNT1.7 10*3/uLNormal1.0-3.5PMercy Health Perrysburg HospitalComment on above:Performed By: #### CBCA #### [facility] ([address] [place] [address] VIRLYMPHOCYTES RELATIVE PERCENT BY AUTOMATED COUNT16.0 %Normal [facility] OhioComment on above:Performed By: #### CBCA #### [facility] ([address] [place] [address] VIRMCH (RBC) [Entitic mass]29.6 fqJlocdj82-30LwvGsvrkbHunt Regional Medical Center At GreenvilleComment on above:Performed By: #### CBCA #### [facility] ([address] [place] [address] VIRMCHC (RBC) [Mass/Vol]34.3 g/gNLbghce86-22CqmJxwvmvHunt Regional Medical Center At GreenvilleComment on above:Performed By: #### CBCA #### [facility] ([address] [place] [address] VIRMCV (RBC) [Entitic vol]86 sGYvsbfy32-189UynRtdokc [facility] HospitalComment on above:Performed By: #### CBCA #### [facility] ([address] [place] [address] VIRMONOCYTES ABSOLUTE COUNT (10*3/UL) BY AUTOMATED COUNT0.8 10*3/uLNormal0.0-0.9ProHunt Regional Medical Center At GreenvilleComment on above:Performed By: #### CBCA #### [facility] ([address] [place] [address] VIRMONOCYTES RELATIVE PERCENT BY AUTOMATED COUNT8.2 %Normal [facility] OhioComment on above:Performed By: #### CBCA #### [facility] ([address] [place] [address] VIRNEUTROPHILS ABSOLUTE COUNT BY AUTOMATED COUNT7.4 10*3/uL High1.5-6.6ProHunt Regional Medical Center At GreenvilleComment on above:Performed By: #### CBCA #### [facility] ([address] [place] [address] VIRNEUTROPHILS RELATIVE PERCENT BY AUTOMATED COUNT71.1 %Normal [facility] OhioComment on above:Performed By: #### CBCA #### [facility] ([facility]) [address] [place], [place] [address] [address] VIRPlatelet mean volume (Bld) [Entitic vol]7.1 fLNormal7-12 [facility] OhioComment on above:Performed By: #### CBCA #### [facility] ([facility]) [address] [place], [place] [address] [place] [address] VIRPlatelets (Bld) [#/Vol]345 10*3/fMLhruse493-925LctOkjsqy [facility] HospitalComment on above:Performed By: #### CBCA #### [facility] ([facility]) [address] [place] [address] [place] [address] VIRRBC COUNT3.94 X10E12/LLow4.1-5.7[facility] [place] Comment on above:Performed By: #### CBCA #### [facility] ([facility]) [address] [place] [address] [place] [address] VIRWBC (Bld) [#/Vol]10.4 10*3/uLNormal4-11[facility] OhioComment on above:Performed By: #### CBCA #### [facility] ([facility]) [address] [place] [address] [place] [address] VIRCNPNon 16-13-5812KQOTKjvdegWkiruppoc Clinic ClevelandCT BRAIN WO CONT STROKE ALERTon 28-84-8979YV BRAIN WO CONT STROKE ALERTCT BRAIN WO CONT STROKE ALERT Exam: CT brain without contrast. CLINICAL HISTORY: Headache TECHNIQUE: CT brain without intravenous contrast. COMPARISON: CT 09/27/2023 FINDINGS: Unchanged left temporal craniotomy defect. There is no evidence of acute intracranial bleeding, mass effect, or CT evidence of acute ischemia/infarct. The midline structures are intact, no midline shift. The ventricles and basal cisterns are within normal limits. The brainstem and cerebellum are unremarkable. The visualized intraorbital contents are unremarkable. Mild mucosal thickening of the right sphenoid sinus. Otherwise the paranasal sinuses and mastoid air cells are well aerated. No acute osseous abnormality in the visualized skull base and calvarium. IMPRESSION: No acute intracranial pathology. All CT scans at this facility use dose modulation, iterative reconstruction, and/or weight based dosing when appropriate to reduce radiation dose to as low as reasonably achievable. Finalized by Enoc Chen on 07/31/2024 3:58 PMNUC [facility] HospitalCT CTA CAROTIDon 73-58-5133PQ CTA CAROTIDCT CTA CAROTID *ADDENDUM*Please note that the right common and internal carotid artery occlusion are chronic and unchanged when compared with September 27, 2023. Finalized by Rj Diaz MD on 07/31/2024 4:24 PMNUC [facility] HospitalCT CTA HEADon [id number] CTA HEADCT CTA HEAD History: headache, c/o bleed Squamous cell cancer left upper lobe Procedure: CT CTA HEAD Multidetector CT angiogram performed with IV contrast through the [place] using 3 -D Maximum intensity projection reconstructions constructed under concurrent physician supervision on a independent workstation. Arterial blood flow was measured to assist the stroke clinical team in the diagnosis of large vessel occlusion in patients undergoing screening for acute ischemic stroke using Rapid AI software when clinically indicated. Automated exposure control was utilized. All CT scans at this facility use dose modulation, iterative reconstruction, and/or weight based dosing when appropriate to reduce radiation dose to as low as reasonably achievable. 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 This is unchanged from prior study. Flow is demonstrated within the vertebral arteries, basilar artery, bilateral posterior cerebral arteries, middle cerebral arteries and anterior cerebral arteries. 3D reformatted images confirm the source data findings. 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 This is unchanged from prior study otherwise unremarkable CT angiogram [place]. * If you have high clinical suspicion for occult process such as an infarct consider CT perfusion and brain MRI. Finalized by Rj Diaz MD on 07/31/2024 4:23 [facility] CincinnatiPROTIME AND INRon 20-11-5365IEI6.6Fvzolf2.9-1.2PMercy Health Perrysburg HospitalComment on above:Performed By: #### PINR #### [facility] ([address] [place] [address] VIRPT Coag (PPP) [Time]11.3 sNormal9.8-13.2PMercy Health Perrysburg HospitalComment on above:Performed By: #### PINR #### [facility] ([facility]) [address] [place] [address] [place] [address] VIRTROPONIN I, HIGH SENSITIVITY 0 HOURon 31-37-5281UTHQXFZA I, HIGH SENSITIVITY4 ng/LNormal<21ProHunt Regional Medical Center At GreenvilleComment on above: Performed By: #### [id number] ####[facility] ([address] [place] [address] VIRXR CHEST 1 VIEW STROKEon 25-05-7963ZV CHEST 1 VIEW STROKEXR CHEST 1 VIEW STROKE History: Headache. Possible bleed. History squamous cell carcinoma Frontal chest radiograph demonstrates that the heart mediastinum and jennifer are grossly unchanged since 10/05/2023. A discrete left lung mass overlapping the hilum are region was noted on the frontal chest radiograph from 10/05/2023. Currently, there is hazy opacity in this area without discrete mass. The remainder of the chest is unchanged. There is no pleural effusion Impression: There is no definite acute chest disease. Hazy opacity in the left mid chest is in the same region as the left lung mass noted on 10/05/2023. This may be due to postoperative or posttreatment changes or to obscuration of the mass by airspace disease. Finalized by Marcin Amaral MD on 07/31/2024 4:20 PMNormalProHunt Regional Medical Center At GreenvilleCNPNon 72-11-0849SHFSBfhbdmKwiobudpu Clinic ClevelandCBC W Auto Differential panel (Bld)on 85-00-1438Tmvsithyi (Bld) [#/Vol]0.06 10*3/uLNormal <0.11CUpper Valley Medical Center on above:Order Comment: Specimen Type: BLOOD SPECIMENOrdering Facility: [facility] Address:[address] [place], [place] [address]Performed By: #### [id number] ####[facility] LABCLIA [id number] [place] [address] Basophils/100 WBC (Bld)0.6 %NormalTwin City Hospital on above: Order Comment: Specimen Type: BLOOD SPECIMENOrdering Facility: [facility] Address:[address] [place], [place] [address]Performed By: #### [id number]- [id number] ####[facility] LABCLIA [id number] [place], [place] [address]Eyuchapphybc cell count method Nom (Bld)AutoNormal [facility] on above:Order Comment: Specimen Type: BLOOD SPECIMENOrdering Facility: [facility] [facility] Address:[address] [place], [place] [address]Performed By: #### 21468-1 ####[facility] LABCLIA [id number] [place], [place] [address]Dyohoqosjqy (Bld) [#/Vol]1.41 10*3/uLHigh<0.46[facility] on above: Order Comment: Specimen Type: BLOOD SPECIMENOrdering Facility: [facility] Address:[address] [place], [place] [address]Performed By: #### 10037- 8 ####[facility] LABCLIA [id number] [place], [place] [address]Tdltwayvwej/100 WBC (Bld)14.6 %NormalTwin City Hospital on above:Order Comment: Specimen Type: BLOOD SPECIMENOrdering Facility: [facility] Address:[address] [place], [place] [address]Performed By: #### 82084-4 ####[facility] LABCLIA [id number] [place], [place] [address]Vvufwifcpjl distribution width (RBC) [Ratio]14.2 %Hfljmj94.5-15.0[facility] on above: Order Comment: Specimen Type: BLOOD SPECIMENOrdering Facility: [facility] Address:[address] [place], [place] [address]Performed By: #### 87342- 8 ####[facility] LABCLIA [id number] [place], [place] [address]Cstpeqbxxt (Bld) [Volume fraction]33.5 %Low39.0-51.0 [facility] on above:Order Comment: Specimen Type: BLOOD SPECIMENOrdering Facility: [facility] Address:[address] [place], [place] [address]Performed By: #### 72344-9 ####[facility] LABCLIA [id number] [place], [place] [address]Ruoxsssmpy (Bld) [Mass/Vol]11.4 g/dLLow13.0-17.0[facility] on above:Order Comment: Specimen Type: BLOOD SPECIMENOrdering Facility: [facility] Address:[address] [place], [place] [address]Performed By: #### 84097- 8 ####[facility] LABCLIA [id number] [place], [place] [address]Ignwjlpw granulocytes (Bld) [#/Vol]0.03 10*3/uLNormal <0.10[facility] on above:Order Comment: Specimen Type: BLOOD SPECIMENOrdering Facility: [facility] Address:[address] [place], [place] [address]Performed By: #### 38959-5 ####[facility] LABIA [id number] [place], [place] [address]Fodkgwxi granulocytes/100 WBC (Bld)0.3 %NormalTwin City Hospital on above: Order Comment: Specimen Type: BLOOD SPECIMENOrdering Facility: [facility] Address:[address] [place], [place] [address]Performed By: #### 12982- 8 ####[facility] LABCLIA [id number] [place], [place] [address]Kkpllblyvvk (Bld) [#/Vol]1.39 10*3/uLNormal1.00-4.00 [facility] on above:Order Comment: Specimen Type: BLOOD SPECIMENOrdering Facility: [facility] Address:[address] [place], [place] [address]Performed By: #### 97031-7 ####[facility] LABIA [id number] [place], [place] [address]Lylixhcbbwc/100 WBC (Bld)14.4 %NormalTwin City Hospital on above:Order Comment: Specimen Type: BLOOD SPECIMENOrdering Facility: [facility] Address:[address] [place], [place] [address]Performed By: #### 00560-9 ####[facility] LABCLIA [id number] [place], [place] [address]LTV (RBC) [Entitic mass]29.8 vvDwegrk95.0-34.0[facility] on above:Order Comment: Specimen Type: BLOOD SPECIMENOrdering Facility: [facility] Address:[address] [place], [place] [address]Performed By: #### 33930-5 ####[facility] LABIA [id number] [place], [place] [address]LUMY (RBC) [Mass/Vol]34.0 g/dDEwlkgv07.5-36.0[facility] on above: Order Comment: Specimen Type: BLOOD SPECIMENOrdering Facility: [facility] Address:[address] [place], [place] [address]Performed By: #### 49086- 8 ####[facility] LABIA [id number] [place], [place] [address]AFY (RBC) [Entitic vol]87.5 dIMwhoxi83.0-100.0[facility] on above:Order Comment: Specimen Type: BLOOD SPECIMENOrdering Facility: [facility] Address:[address] [place], [place] [address]Performed By: #### 41589-1 ####[facility] LABCLIA [id number] [place], [place] [address]Gpmlqrjyl (Bld) [#/Vol]0.73 10*3/uLNormal<0.87[facility] on above:Order Comment: Specimen Type: BLOOD SPECIMENOrdering Facility: [facility] Address:[address] [place], [place] [address]Performed By: #### 78042- 8 ####[facility] LABCLIA [id number] [place], [place] [address]Gluqnrntf/100 WBC (Bld)7.5 %NormalTwin City Hospital on above:Order Comment: Specimen Type: BLOOD SPECIMENOrdering Facility: [facility] Address:[address] [place], [place] [address]Performed By: #### 68363-3 ####[facility] LABCLIA [id number] [place], [place] [address]Vaescvybenh (Bld) [#/Vol]6.05 10*3/uLNormal1.45-7.50[facility] on above:Order Comment: Specimen Type: BLOOD SPECIMENOrdering Facility: [facility] Address:[address] [place], [place] [address]Performed By: #### 72796-9 ####[facility] LABCLIA [id number] [place], [place] [address]Awdiyuxtnth/100 WBC (Bld)62.6 %NormalTwin City Hospital on above:Order Comment: Specimen Type: BLOOD SPECIMENOrdering Facility: [facility] Address:[address] [place], [place] [address]Performed By: #### 95333-9 ####[facility] LABCLIA [id number] [place], [place] [address]Fyrmhhymp RBC (Bld) [#/Vol] 10*3/uLNormal<0.01[facility] on above:Order Comment: Specimen Type: BLOOD SPECIMENOrdering Facility: [facility] Address:[address] [place], [place] [address]Performed By: #### 15371-6 ####[facility] LABCLIA [id number] [place], [place] [address]Dlyjwxyrx RBC/100 WBC (Bld) [Ratio]0.0 /100 WBCNormal [facility] on above:Order Comment: Specimen Type: BLOOD SPECIMENOrdering Facility: [facility] Address:[address] [place], [place] [address]Performed By: #### 06587-0 ####[facility] LABIA [id number] [place], [place] [address]Fngbdefn mean volume (Bld) [Entitic vol]9.1 fLNormal9.0-12.7CU[facility] on above:Order Comment: Specimen Type: BLOOD SPECIMENOrdering Facility: [facility] Address:[address] [place] [address] Performed By: #### 44497-1 ####[facility] LABIA [id number] [place], [place] [address]Tcyhpivfm (Bld) [#/Vol]292 10*3/qZOrdcff942-629VlavtykeaTwin City Hospital on above:Order Comment: Specimen Type: BLOOD SPECIMENOrdering Facility: [facility] Address:[address] [place], [place] [address]Performed By: #### 90075-2 ####[facility] LABCLIA [id number] [place], [place] [address]OUE (Bld) [#/Vol]3.83 10*6/uLLow4.20-6.00[facility] on above:Order Comment: Specimen Type: BLOOD SPECIMENOrdering Facility: [facility] Address:[address] [place], [place] [address]Performed By: #### 65676-0 ####[facility] LABCLIA [id number] [place], [place] [address]FKI (Bld) [#/Vol]9.67 10*3/uL Normal3.70-11.00[facility] on above:Order Comment: Specimen Type: BLOOD SPECIMENOrdering Facility: [facility] Address:[address] [place], [place] [address]Performed By: #### 68624-1 ####[facility] LABCLIA [id number] [place], [place] [address]WRQ CBC W AUTO DIFF BLDon [id number]/100 WBC (Bld)0.6 %[facility] BASOPHILS # BLD AUTO0.06NIHumboldt General Hospital DIFFERENTIAL METHOD BLDAutoNOMBoone Hospital Center EOSINOPHIL # BLD AUTO1.41HighNINF [facility] LYMPHOCYTES # BLD AUTO1.39[facility] MONOCYTES # BLD AUTO0.73NIHumboldt [facility] NEUTROPHILS # BLD AUTO6.05[facility] NRBC # BLD AUTO<0.01NIHumboldt [facility] NRBC/100 WBC BLD-RTO0/100 WBCTexas County Memorial Hospital PLATELET # BLD SRVU385AFRUTexas County Memorial Hospital PMV BLD AUTO9.1 fL9.0 - 12.7 fLTexas County Memorial Hospital WBC # BLD AUTO9.67NOCox Walnut LawnEosinophils/100 WBC (Bld)14.6 %NOMS HealthcareErythrocyte distribution width (RBC) [Ratio]14.2 %11.5 - 15.0 %NOMS HealthcareHematocrit (Bld) [Volume fraction]33.5 %Low39.0 - 51.0 % NOMS HealthcareHemoglobin (Bld) [Mass/Vol]11.4 g/dLLow13.0 - 17.0 g/dLJefferson Memorial Hospital GRANULOCYTES # BLD AUTO0.03NINFJefferson Memorial Hospital GRANULOCYTES/LEUK NFR BLD AUTO0.3 %[facility]–Barry RoadInterpretation and review of laboratory resultsAbHutzel Women's HospitalLymphocytes/100 WBC (Bld)14.4 %[facility] CenterH (RBC) [Entitic mass]29.8 pg26.0 - 34.0 pgRusk Rehabilitation CenterHC (RBC) [Mass/Vol]34 g/dL30.5 - 36.0 g/dLRusk Rehabilitation CenterV (RBC) [Entitic vol]87.5 fL 80.0 - 100.0 fLSaint Luke's North Hospital–Barry RoadMonocytes/100 WBC (Bld)7.5 %[facility] Neutrophils/100 WBC (Bld)62.6 %[facility]–Barry RoadRBC (Bld) [#/Vol]3.83 10*6/uLLow 4.20 - 6.00 m/uLUTAH STATE [facility] HealthcareSpecimen Type: BLOOD SPECIMEN Ordering [facility]: [facility] Address: [address] [place] [address] Original Ordering Provider: LOSARA RAMIREZCommunity Health SystemsCNOVSPon [id number]yzwoy Clinic ClevelandCNPNon 45-88-5196VVATPqckux St. Elizabeth HospitalCT BRAIN WO/W IVCONon 07-20-2024* * *Final Report* * * DATE OF EXAM: Jul 20 2024 3:26PM [facility] 0007 - CT BRAIN WO/W IVCON / PROCEDURE REASON: Syncope and collapse * * * * Physician Interpretation * * * * RESULT: EXAMINATION: CT BRAIN WO/W IVCON Clinical history: As provided by the ordering clinician via order question entries: Syncope, recurrent. Syncope and collapse. TECHNIQUE: Serial axial images without and with IV contrast were obtained from the vertex to the foramen magnum. MQ: CTBWOW_1 Contrast: 100 mL Omnipaque [address] Radiation dose: Integrated Dose-Length Product (DLP) for this visit = 1675 mGy*cm CT Dose Reduction Employed: Automated exposure control (AEC) Comparison: Imported 09/28/2023 brain MRI without and with contrast RESULT: Post-operative change: Left temporal craniotomy and partial craniectomy with mesh cranioplasty. Small focus of parenchymal hypoattenuation likely reflecting an area of encephalomalacia and gliosis along the underlying left temporal lobe superior to the petrous apex (series 5, images 9-10), and additional focus along the lateral left occipitotemporal junction (series 5, image 14). Acute change: No evidence of an acute intracranial process. Hemorrhage: There is no evidence of acute intracranial hemorrhage. ECASS hemorrhagic transformation score: Not Applicable Mass Lesion / Mass Effect: There is no evidence of an intracranial mass or extraaxial fluid collection. No abnormal parenchymal enhancement is appreciated. No significant mass effect. Chronic change: Scattered patchy foci of low attenuation are present within supratentorial white matter which is a nonspecific finding but likely represents mild chronic microvascular ischemic change. Parenchyma: No significant volume loss for age. The brain parenchyma is otherwise within normal limits for age. Ventricles: Ventricular calibers are commensurate with the parenchymal volume and normal in configuration. Paranasal sinuses: The visualized paranasal sinuses are grossly clear. Other: Unremarkable appearance of the partially visualized orbits, although bilateral yankton lens placements are noted on the prior exam. The skull base and imaged soft tissues are unremarkable. Body Joiner (topogram) images: Noncontributory IMPRESSION: No acute intracranial abnormality. Postoperative and chronic changes as detailed. Transcribe Date/Time: Jul 20 2024 3:27P Dictated by: SIDNEY REAL MD This examination was interpreted and the report reviewed and electronically signed by: SIDNEY REAL MD on Jul 20 2024 3:35PM EST Thank you for allowing us to participate in the care of your patient. Should there be any questions regarding this interpretation, please call [phone]. If you are unable to reach us at the number above, please feel free to contact [facility] at [phone]. [id number]^AGFA_IDC^SI^ACNCCFRadiology, RadiologistMD - 07/20/2024 * * *Final Report* * * DATE OF EXAM: Jul 20 2024 3:26PM [facility] 0007 - CT BRAIN WO/W IVCON / PROCEDURE REASON: Syncope and collapse * * * * Physician Interpretation * * * * RESULT: EXAMINATION: CT BRAIN WO/W IVCON Clinical history: As provided by the ordering clinician via order question entries: Syncope, recurrent. Syncope and collapse. TECHNIQUE: Serial axial images without and with IV contrast were obtained from the vertex to the foramen magnum. MQ: CTBWOW_1 Contrast: 100 mL Omnipaque [address] Radiation dose: Integrated Dose-Length Product (DLP) for this visit = 1675 mGy*cm CT Dose Reduction Employed: Automated exposure control (AEC) Comparison: Imported 09/28/2023 brain MRI without and with contrast RESULT: Post-operative change: Left temporal craniotomy and partial craniectomy with mesh cranioplasty. Small focus of parenchymal hypoattenuation likely reflecting an area of encephalomalacia and gliosis along the underlying left temporal lobe superior to the petrous apex (series 5, images 9-10), and additional focus along the lateral left occipitotemporal junction (series 5, image 14). Acute change: No evidence of an acute intracranial process. Hemorrhage: There is no evidence of acute intracranial hemorrhage. ECASS hemorrhagic transformation score: Not Applicable Mass Lesion / Mass Effect: There is no evidence of an intracranial mass or extraaxial fluid collection. No abnormal parenchymal enhancement is appreciated. No significant mass effect. Chronic change: Scattered patchy foci of low attenuation are present within supratentorial white matter which is a nonspecific finding but likely represents mild chronic microvascular ischemic change. Parenchyma: No significant volume loss for age. The brain parenchyma is otherwise within normal limits for age. Ventricles: Ventricular calibers are commensurate with the parenchymal volume and normal in configuration. Paranasal sinuses: The visualized paranasal sinuses are grossly clear. Other: Unremarkable appearance of the partially visualized orbits, although bilateral yankton lens placements are noted on the prior exam. The skull base and imaged soft tissues are unremarkable. Body Joiner (topogram) images: Noncontributory IMPRESSION: No acute intracranial abnormality. Postoperative and chronic changes as detailed. Transcribe Date/Time: Jul 20 2024 3:27P Dictated by: SIDNEY REAL MD This examination was interpreted and the report reviewed and electronically signed by: SIDNEY REAL MD on Jul 20 2024 3:35PM EST Thank you for allowing us to participate in the care of your patient. Should there be any questions regarding this interpretation, please call [phone]. If you are unable to reach us at the number above, please feel free to contact [facility] eRadiology at [phone]. [id number]^AGFA_IDC^SI^ACN NOMS HealthcareCT BRAIN WO/W IVCONNormalSt. Elizabeth HospitalRadiology Study observation (narrative)NOMS HealthcareCT Head WO and W contrast Landy 08-26-4673ROLAKNPDKX: No acute intracranial abnormality. Postoperative and chronic changes as detailed. Transcribe Date/Time: Jul 20 2024 3:27P Dictated by: SIDNEY REAL MD This examination was interpreted and the report reviewed and electronically signed by: SIDNEY REAL MD on Jul 20 2024 3:35PM EST Thank you for allowing us to participate in the care of your patient. Should there be any questions regarding this interpretation, please call [phone]. If you are unable to reach us at the number above, please feel free to contact [place] at [phone].DIVISION OF RADIOLOGY* * *Final Report* * * DATE OF EXAM: Jul 20 2024 3:26PM [facility] 0007 - CT BRAIN WO/W IVCON / PROCEDURE REASON: Syncope and collapse * * * * Physician Interpretation * * * * RESULT: EXAMINATION: CT BRAIN WO/W IVCON Clinical history: As provided by the ordering clinician via order question entries: Syncope, recurrent. Syncope and collapse. TECHNIQUE: Serial axial images without and with IV contrast were obtained from the vertex to the foramen magnum. MQ: CTBWOW_1 Contrast: 100 mL Omnipaque [address] Radiation dose: Integrated Dose-Length Product (DLP) for this visit = 1675 mGy*cm CT Dose Reduction Employed: Automated exposure control (AEC) Comparison: Imported 09/28/2023 brain MRI without and with contrast RESULT: Post-operative change: Left temporal craniotomy and partial craniectomy with mesh cranioplasty. Small focus of parenchymal hypoattenuation likely reflecting an area of encephalomalacia and gliosis along the underlying left temporal lobe superior to the petrous apex (series 5, images 9-10), and additional focus along the lateral left occipitotemporal junction (series 5, image 14). Acute change: No evidence of an acute intracranial process. Hemorrhage: There is no evidence of acute intracranial hemorrhage. ECASS hemorrhagic transformation score: Not Applicable Mass Lesion / Mass Effect: There is no evidence of an intracranial mass or extraaxial fluid collection. No abnormal parenchymal enhancement is appreciated. No significant mass effect. Chronic change: Scattered patchy foci of low attenuation are present within supratentorial white matter which is a nonspecific finding but likely represents mild chronic microvascular ischemic change. Parenchyma: No significant volume loss for age. The brain parenchyma is otherwise within normal limits for age. Ventricles: Ventricular calibers are commensurate with the parenchymal volume and normal in configuration. Paranasal sinuses: The visualized paranasal sinuses are grossly clear. Other: Unremarkable appearance of the partially visualized orbits, although bilateral yankton lens placements are noted on the prior exam. The skull base and imaged soft tissues are unremarkable. Body Joiner (topogram) images: Noncontributory DIVISION OF RADIOLOGYProvider, [facility] [employer] - 07/20/2024 * * *Final Report* * * DATE OF EXAM: Jul 20 2024 3:26PM [facility] 0007 - CT BRAIN WO/W IVCON / PROCEDURE REASON: Syncope and collapse * * * * Physician Interpretation * * * * RESULT: EXAMINATION: CT BRAIN WO/W IVCON Clinical history: As provided by the ordering clinician via order question entries: Syncope, recurrent. Syncope and collapse. TECHNIQUE: Serial axial images without and with IV contrast were obtained from the vertex to the foramen magnum. MQ: CTBWOW_1 Contrast: 100 mL Omnipaque [address] Radiation dose: Integrated Dose-Length Product (DLP) for this visit = 1675 mGy*cm CT Dose Reduction Employed: Automated exposure control (AEC) Comparison: Imported 09/28/2023 brain MRI without and with contrast RESULT: Post-operative change: Left temporal craniotomy and partial craniectomy with mesh cranioplasty. Small focus of parenchymal hypoattenuation likely reflecting an area of encephalomalacia and gliosis along the underlying left temporal lobe superior to the petrous apex (series 5, images 9-10), and additional focus along the lateral left occipitotemporal junction (series 5, image 14). Acute change: No evidence of an acute intracranial process. Hemorrhage: There is no evidence of acute intracranial hemorrhage. ECASS hemorrhagic transformation score: Not Applicable Mass Lesion / Mass Effect: There is no evidence of an intracranial mass or extraaxial fluid collection. No abnormal parenchymal enhancement is appreciated. No significant mass effect. Chronic change: Scattered patchy foci of low attenuation are present within supratentorial white matter which is a nonspecific finding but likely represents mild chronic microvascular ischemic change. Parenchyma: No significant volume loss for age. The brain parenchyma is otherwise within normal limits for age. Ventricles: Ventricular calibers are commensurate with the parenchymal volume and normal in configuration. Paranasal sinuses: The visualized paranasal sinuses are grossly clear. Other: Unremarkable appearance of the partially visualized orbits, although bilateral yankton lens placements are noted on the prior exam. The skull base and imaged soft tissues are unremarkable. Body Joiner (topogram) images: Noncontributory IMPRESSION IMPRESSION: No acute intracranial abnormality. Postoperative and chronic changes as detailed. Transcribe Date/Time: Jul 20 2024 3:27P Dictated by: SIDNEY REAL MD This examination was interpreted and the report reviewed and electronically signed by: SIDNEY REAL MD on Jul 20 2024 3:35PM EST Thank you for allowing us to participate in the care of your patient. Should there be any questions regarding this interpretation, please call [phone]. If you are unable to reach us at the number above, please feel free to contact [facility] eRadiology at [phone]. [facility] ShawRadiology Study observation (narrative)[facility] Comprehensive metabolic 2000 panelon 63-00-2457Eywgwxy [Mass/Vol]4.4 g/dLNormal 3.9-4.9CU[facility] on above:Order Comment: Specimen Type: BLOOD SPECIMENOrdering Facility: [facility] Address:[address] [place], [place] [address]Performed By: #### 52112-7 ####[facility] LABCLIA [id number] [place], [place] [address]LGV [Catalytic activity/Vol]96 U/KLebpnq29-562QiodnjwdpTwin City Hospital on above:Order Comment: Specimen Type: BLOOD SPECIMENOrdering Facility: [facility] Address:[address] [place] [address]Ucpjptbws By: #### 95698-0 ####[facility] LABCLIA [id number] [place], [place] [address]XAE [Catalytic activity/Vol]15 U/JWoecgm27-45KtlzfygkqTwin City Hospital on above:Order Comment: Specimen Type: BLOOD SPECIMENOrdering Facility: [facility] Address:[address] [place], [place] [address]Performed By: #### 19087-5 ####[facility] LABCLIA [id number] [place], [place] [address]Jjhiv gap [Moles/Vol]11 mmol/LNormal8-15[facility] on above:Order Comment: Specimen Type: BLOOD SPECIMENOrdering Facility: [facility] Address:[address] [place], [place] [address]Performed By: #### 71160- 8 ####[facility] LABCLIA [id number] [place], [place] [address]JAU [Catalytic activity/Vol]16 U/LNfsyem00-90LasyylwksTwin City Hospital on above:Order Comment: Specimen Type: BLOOD SPECIMENOrdering Facility: [facility] Address:[address] [place], [place] [address]Performed By: #### 60049-2 ####[facility] LABCLIA [id number] [place], [place] [address]Uwbiwrqgc [Mass/Vol]0.3 mg/dLNormal0.2-1.3CUpper [facility] Center on above:Order Comment: Specimen Type: BLOOD SPECIMENOrdering Facility: [facility] Address:[address] [place], [place] [address]Performed By: #### 48450- 8 ####[facility] LABCLIA [id number] [place], [place] [address]Kehtszt [Mass/Vol]9.4 mg/dLNormal8.5-10.2CU[facility] on above:Order Comment: Specimen Type: BLOOD SPECIMENOrdering Facility: [facility] Address:[address] [place], [place] [address]Performed By: #### 31169-0 ####[facility] LABCLIA [id number] [place], [place] [address]Uiuggede [Moles/Vol]104 mmol/L Rumlbs25-032QkjkqbioaTwin City Hospital on above:Order Comment: Specimen Type: BLOOD SPECIMENOrdering Facility: [facility] Address:[address] [place], [place] [address]Performed By: #### 80168-6 ####[facility] LABCLIA [id number] [place] [address] CO2 [Moles/Vol]28 mmol/DZbzvjx64-62IfzeitegfTwin City Hospital on above: Order Comment: Specimen Type: BLOOD SPECIMENOrdering Facility: [facility] Address:[address] [place], [place] [address]Performed By: #### 60149- 8 ####[facility] LABCLIA [id number] [place], [place] [address]Zseonxwgcr [Mass/Vol]0.64 mg/dLLow0.73-1.22[facility] on above:Order Comment: Specimen Type: BLOOD SPECIMENOrdering Facility: [facility] Address:[address] [place], [place] [address]Performed By: #### 66864-2 ####[facility] LABCLIA [id number] [place], [place] [address]Npdcckechc and Glomerular filtration rate.predicted panel (S/P/Bld)103 mL/min/1.73m???Normal >=60[facility] on above:Order Comment: Specimen Type: BLOOD SPECIMENOrdering Facility: [facility] Address:[address] [place], [place] [address]Result Comment: Estimated Glomerular Filtration Rate (eGFR) is calculated using the 2020 CKD-EPI creatinine equation. This equation utilizes serum creatinine, sex, and age as parameters. The creatinine assay has traceable calibration to isotope dilution-mass spectrometry. Refer to KDIGO guidelines for clinical interpretation. In patients with unstable renal function, e.g. those with acute kidney injury, the eGFR may not accurately reflect actual GFR.Performed By: #### 51724-5 ####[facility] LABIA [id number] [place], [place] [address]Qobbtve [Mass/Vol]158 mg/nZBxdd66-65TqmejyzywTwin City Hospital on above:Order Comment: Specimen Type: BLOOD SPECIMENOrdering Facility: [facility] Address:[address] [place], [place] [address]Result Comment: The [place] Diabetes Association (ADA) provides guidance for cutoff values for fast ing glucose and random glucose. The ADA defines fasting as no caloric intake for at least 8 hours. Fasting plasma glucose results between 100 to 125 mg/dL indicate increased risk for diabetes (prediabetes).Fasting plasma glucose results greater than or equal to 126 mg/dL meet the criteria for diagnosis of diabetes. In the absence of unequivocal hyperglycemia, results should be confirmed by repeattesting. In a patient with classic symptoms of hyperglycemia or hyperglycemic crisis, random plasmaglucose results greater than or equal to 200 mg/dL meet the criteria for diagnosis of diabetes.Reference: Standards of Medical Care in Diabetes 2016, [place] Diabetes Association. Diabetes Care. 2016.39(Suppl 1).Performed By: #### 45712-6 ####[facility] LABIA [id number] [place], [place] [address]Ozplyzmtv [Moles/Vol]3.7 mmol/LNormal3.7-5.1CU[facility] on above: Order Comment: Specimen Type: BLOOD SPECIMENOrdering Facility: [facility] Address:[address] [place] [address]Mhmhdspym By: #### 17177- 8 ####[facility] LABCLIA [id number] [place], [place] [address]Dklcfrj [Mass/Vol]6.8 g/dLNormal6.3-8.0[facility] on above:Order Comment: Specimen Type: BLOOD SPECIMENOrdering Facility: [facility] Address:[address] [place], [place] [address]Performed By: #### 87167-8 ####[facility] LABCLIA [id number] [place], [place] [address]Lrsatp [Moles/Vol]143 mmol/L Gpcdvt171-760VzpnudjygTwin City Hospital on above:Order Comment: Specimen Type: BLOOD SPECIMENOrdering Facility: [facility] Address:[address] [place], [place] [address]Performed By: #### 00657-5 ####[facility] LABCLIA [id number] [place] [address] Urea nitrogen [Mass/Vol]10 mg/dLNormal9-24[facility] on above:Order Comment: Specimen Type: BLOOD SPECIMENOrdering Facility: [facility] Address:[address] [place], [place] [address]Performed By: #### 28851-4 ####[facility] LABCLIA [id number] [place], [place] [address]Xgjoss SerPl-mCncon 77-02-1931Axgrebqj [Mass/Vol] 11.2 ug/dLNormal4.8-19.5CU[facility] on above:Order Comment: Specimen Type: BLOOD SPECIMENOrdering Facility: [facility] Address:[address] [place], [place] [address]Result Comment: Provided reference range is from 6-10 AM sample collection time.Cortisol Reference Range: 6-10 AM = 4.8-19.5 ug/dL, 4-8 PM = 2.5-11.9 ug/dLPerformed By: #### 3016-3, 2143-6 ####[facility] LABCLIA [id number] [facility] [id number] [place], [place] [address] [facility] Panel InformationOrdered By: Radiologist Radiology on 02-40-3980BUWV MADS Work Phone: tsh SerPl-aCncon 98-98-6600ZRI Qn1.160 m[IU]/LNormal 0.270-4.200[facility] on above:Order Comment: Specimen Type: BLOOD SPECIMENOrdering Facility: [facility] Address:[address] [place], [place] [address]Performed By: #### 3016-3, 2143-6 ####[facility] LABCLIA [id number] [facility] H32TCLEBEBNATAYLOR VILLE [id number] [facility] W Auto Differential panel (Bld)on 06-29-2024 Basophils (Bld) [#/Vol]0.03 10*3/uLNormal<0.11CU[facility] on above:Order Comment: Specimen Type: BLOOD SPECIMENOrdering Facility: [facility] Address:[address] [place] [address] Performed By: #### 91123-1 ####[facility] LABCLIA [id number] [place], [place] [address]Vyajlfooz/100 WBC (Bld)0.3 % NormalTwin City Hospital on above:Order Comment: Specimen Type: BLOOD SPECIMENOrdering Facility: [facility] Address:[address] [place], [place] [address]Performed By: #### 96565-1 ####[facility] LABCLIA [id number] [place] [address] Differential cell count method Nom (Bld)AutoNormalCTriHealth [facility] Comment on above:Order Comment: Specimen Type: BLOOD SPECIMENOrdering Facility: [facility] Address:[address] [place] [address] Performed By: #### 63208-8 ####[facility] LABCLIA [id number] [place], [place] [address]Pyrjhwqjhkd (Bld) [#/Vol]1.38 10*3/uLHigh<0.46[facility] on above:Order Comment: Specimen Type: BLOOD SPECIMENOrdering Facility: [facility] Address:[address] [place], [place] [address]Performed By: #### 60045-9 ####[facility] LABCLIA [id number] [place], [place] [address]Wdijvpodqdx/100 WBC (Bld)14.7 %NormalTwin City Hospital on above:Order Comment: Specimen Type: BLOOD SPECIMENOrdering Facility: [facility] Address:[address] [place], [place] [address]Performed By: #### 43773-9 ####[facility] LABIA [id number] [place], [place] [address]Qjdncmiurhf distribution width (RBC) [Ratio]14.5 %Yxrokb98.5-15.0[facility] on above: Order Comment: Specimen Type: BLOOD SPECIMENOrdering Facility: [facility] Address:[address] [place], [place] [address]Performed By: #### 08949- 8 ####[facility] LABIA [id number] [place], [place] [address]Iwwsaslwuk (Bld) [Volume fraction]35.3 %Low39.0-51.0 [facility] on above:Order Comment: Specimen Type: BLOOD SPECIMENOrdering Facility: [facility] Address:[address] [place], [place] [address]Performed By: #### 77012-7 ####[facility] LABIA [id number] [place], [place] [address]Kldgvsmlpl (Bld) [Mass/Vol]11.8 g/dLLow13.0-17.0[facility] on above:Order Comment: Specimen Type: BLOOD SPECIMENOrdering Facility: [facility] Address:[address] [place], [place] [address]Performed By: #### 43414- 8 ####[facility] LABIA [id number] [place], [place] [address]Okqnhigc granulocytes (Bld) [#/Vol]0.07 10*3/uLNormal <0.10[facility] on above:Order Comment: Specimen Type: BLOOD SPECIMENOrdering Facility: [facility] Address:[address] [place], [place] [address]Performed By: #### 66628-8 ####[facility] LABCLIA [id number] [place], [place] [address]Afhjymot granulocytes/100 WBC (Bld)0.7 %NormalTwin City Hospital on above: Order Comment: Specimen Type: BLOOD SPECIMENOrdering Facility: [facility] Address:[address] [place], [place] [address]Performed By: #### 81784- 8 ####[facility] LABCLIA [id number] [place], [place] [address]Glraxzffwhl (Bld) [#/Vol]1.46 10*3/uLNormal1.00-4.00 [facility] on above:Order Comment: Specimen Type: BLOOD SPECIMENOrdering Facility: [facility] Address:[address] [place], [place] [address]Performed By: #### 39617-7 ####[facility] LABIA [id number] [place], [place] [address]Kqqkmtvsgue/100 WBC (Bld)15.6 %NormalTwin City Hospital on above:Order Comment: Specimen Type: BLOOD SPECIMENOrdering Facility: [facility] Address:[address] [place], [place] [address]Performed By: #### 87636-0 ####[facility] LABCLIA [id number] [place], [place] [address]AEC (RBC) [Entitic mass]29.4 edCphqul06.0-34.0[facility] on above:Order Comment: Specimen Type: BLOOD SPECIMENOrdering Facility: [facility] Address:[address] [place], [place] [address]Performed By: #### 21496-3 ####[facility] LABCLIA [id number] [place], [place] [address]NNOQ (RBC) [Mass/Vol]33.4 g/aOOcnrwj51.5-36.0[facility] on above: Order Comment: Specimen Type: BLOOD SPECIMENOrdering Facility: [facility] Address:[address] [place], [place] [address]Performed By: #### 98337- 8 ####[facility] LABCLIA [id number] [place], [place] [address]KPI (RBC) [Entitic vol]88.0 bSDkbjqc79.0-100.0[facility] on above:Order Comment: Specimen Type: BLOOD SPECIMENOrdering Facility: [facility] Address:[address] [place], [place] [address]Performed By: #### 75196-4 ####[facility] LABIA [id number] [place], [place] [address]Imjhuuumw (Bld) [#/Vol]0.93 10*3/uLHigh<0.87[facility] on above:Order Comment: Specimen Type: BLOOD SPECIMENOrdering Facility: [facility] Address:[address] [place], [place] [address]Performed By: #### 61152- 8 ####[facility] LABCLIA [id number] [place], [place] [address]Eeqymwiqe/100 WBC (Bld)9.9 %NormalTwin City Hospital on above:Order Comment: Specimen Type: BLOOD SPECIMENOrdering Facility: [facility] Address:[address] [place], [place] [address]Performed By: #### 12705-1 ####[facility] LABIA [id number] [place], [place] [address]Arzemiocxzn (Bld) [#/Vol]5.51 10*3/uLNormal1.45-7.50[facility] on above:Order Comment: Specimen Type: BLOOD SPECIMENOrdering Facility: [facility] Address:[address] [place], [place] [address]Performed By: #### 77609-4 ####[facility] LABCLIA [id number] [place], [place] [address]Eupupulmnbk/100 WBC (Bld)58.8 %NormalTwin City Hospital on above:Order Comment: Specimen Type: BLOOD SPECIMENOrdering Facility: [facility] Address:[address] [place], [place] [address]Performed By: #### 90334-3 ####[facility] LABCLIA [id number] [place], [place] [address]Spzlcsrmc RBC (Bld) [#/Vol] 10*3/uLNormal<0.01[facility] on above:Order Comment: Specimen Type: BLOOD SPECIMENOrdering Facility: [facility] Address:[address] [place], [place] [address]Performed By: #### 73036-4 ####[facility] LABCLIA [id number] [place], [place] [address]Jzyrbgdhf RBC/100 WBC (Bld) [Ratio]0.0 /100 WBCNormal [facility] on above:Order Comment: Specimen Type: BLOOD SPECIMENOrdering Facility: [facility] Address:[address] [place], [place] [address]Performed By: #### 84771-9 ####[facility] LABCLIA [id number] [place], [place] [address]Kvvlqubt mean volume (Bld) [Entitic vol]9.7 fLNormal9.0-12.7[facility] on above:Order Comment: Specimen Type: BLOOD SPECIMENOrdering Facility: [facility] Address:[address] [place] [address] Performed By: #### 09114-8 ####[facility] LABCLIA [id number] [place], [place] [address]Zztgwflpd (Bld) [#/Vol]252 10*3/sBAhpojd151-700QeyzdunugTwin City Hospital on above:Order Comment: Specimen Type: BLOOD SPECIMENOrdering Facility: [facility] Address:[address] [place], [place] [address]Performed By: #### 47821-8 ####[facility] LABCLIA [id number] [place], [place] [address]IPA (Bld) [#/Vol]4.01 10*6/uLLow4.20-6.00[facility] on above:Order Comment: Specimen Type: BLOOD SPECIMENOrdering Facility: [facility] Address:[address] [place], [place] [address]Performed By: #### 36896-4 ####[facility] LABIA [id number] [place], [place] [address]TFF (Bld) [#/Vol]9.38 10*3/uL Normal3.70-11.00[facility] on above:Order Comment: Specimen Type: BLOOD SPECIMENOrdering Facility: [facility] Address:[address] [place], [place] [address]Performed By: #### 95241-4 ####[facility] LABCLIA [id number] [place], [place] [address]EQA CBC W AUTO DIFF BLDon 62-99-7588Fglxekabm/100 WBC (Bld)0.3 %[facility] HealthcareCCF BASOPHILS # BLD AUTO0.03NINFNOMS HealthcareCCF DIFFERENTIAL METHOD BLDAutoNOMS HealthcareCCF EOSINOPHIL # BLD AUTO1.38HighNINF [facility] HealthcareCC[facility] LYMPHOCYTES # BLD AUTO1.46[facility] HealthcareCC[facility] MONOCYTES # BLD AUTO0.93HighNINFNOCT HealthcareCCF NEUTROPHILS # BLD AUTO5.51[facility] HealthcareCCF NRBC # BLD AUTO<0.01NINFNOCox Walnut LawnCCF NRBC/100 WBC BLD-RTO0/100 WBCHeartland Behavioral Health ServicesF PLATELET # BLD HPBL496PWBYSaint Luke's North Hospital–Barry RoadCCF PMV BLD AUTO9.7 fL9.0 - 12.7 fLTexas County Memorial Hospital WBC # BLD AUTO9.38[facility]–Barry RoadEosinophils/100 WBC (Bld)14.7 %[facility]–Barry RoadErythrocyte distribution width (RBC) [Ratio]14.5 %11.5 - 15.0 %[facility]–Barry RoadHematocrit (Bld) [Volume fraction]35.3 %Low39.0 - 51.0 % [facility]–Barry RoadHemoglobin (Bld) [Mass/Vol]11.8 g/dLLow13.0 - 17.0 g/dLJefferson Memorial Hospital GRANULOCYTES # BLD AUTO0.07NINFJefferson Memorial Hospital GRANULOCYTES/LEUK NFR BLD AUTO0.7 %[facility]–Barry RoadInterpretation and review of laboratory resultsAbnormalSaint Luke's North Hospital–Barry RoadLymphocytes/100 WBC (Bld)15.6 %[facility] CenterH (RBC) [Entitic mass]29.4 pg26.0 - 34.0 pgRusk Rehabilitation CenterHC (RBC) [Mass/Vol]33.4 g/dL30.5 - 36.0 g/dLRusk Rehabilitation CenterV (RBC) [Entitic vol]88 fL 80.0 - 100.0 fLSaint Luke's North Hospital–Barry RoadMonocytes/100 WBC (Bld)9.9 %[facility] Neutrophils/100 WBC (Bld)58.8 %[facility]–Barry RoadRBC (Bld) [#/Vol]4.01 10*6/uLLow 4.20 - 6.00 m/uLUTAH STATE [facility] HealthcareSpecimen Type: BLOOD SPECIMEN Ordering [facility]: [facility] Address: [address] [place], [place] [address] Original Ordering Provider: LO SERRATOSaint Luke's North Hospital–Barry RoadComprehensive metabolic 2000 panelon 29-73-0243Ajolqdz [Mass/Vol]4.2 g/dLNormal3.9-4.9 [facility] HospitalCommymichigan medical center [facility] on above:Order Comment: Specimen Type: BLOOD SPECIMENOrdering Facility: [facility] Address:[address] [place], [place] [address]Performed By: #### 45130-2 ####[facility]UVTMARIB[facility] LABCLIA [id number] [place] [address]OMF [Catalytic activity/Vol]88 U/OCanywm09-755FminurosoTwin City Hospital on above:Order Comment: Specimen Type: BLOOD SPECIMENOrdering Facility: [facility] Address:[address] [place], [place] [address]Performed By: #### 92470- 8 ####[facility] LABCLIA [id number] [place] [address]FWH [Catalytic activity/Vol]27 U/RYniyvk87-75ZfkgpekfzTwin City Hospital on above:Order Comment: Specimen Type: BLOOD SPECIMENOrdering Facility: [facility] Address:[address] [place], [place] [address]Performed By: #### 83890-9 ####[facility]TM[facility]IB[facility] LABCLIA [id number] [place], [place] [address]Zoamr gap [Moles/Vol]11 mmol/LNormal8-15[facility] on above:Order Comment: Specimen Type: BLOOD SPECIMENOrdering Facility: [facility] Address:[address] [place], [place] [address]Performed By: #### 75232- 8 ####[facility]ITALMARIBEL [facility] LABCLIA [id number] [address] COTTOND[address] [place] [address]VDR [Catalytic activity/Vol]24 U/MSphngf43-88CxevghqjvTwin City Hospital on above:Order Comment: Specimen Type: BLOOD SPECIMENOrdering Facility: [facility] Address:[address] [place], [place] [address]Performed By: #### 31351-5 ####[facility] LABCLIA [id number] [address] BANKSDIGN[address]ALTH ST[facility] JO[facility]PH'[facility] WESTGATE MEDICAL CENTERTESSANORTH [place], [place] [address]Ctgmfgrix [Mass/Vol]0.4 mg/dLNormal0.2-1.3CU[facility] on above:Order Comment: Specimen Type: BLOOD SPECIMENOrdering Facility: [facility] Address:[address] [place], [place] [address]Performed By: #### 91550- 8 ####[facility] LABCLIA [id number] [facility] [place], [place] [address]Lxkkcch [Mass/Vol]10.0 mg/dLNormal8.5-10.2CU[facility] on above:Order Comment: Specimen Type: BLOOD SPECIMENOrdering Facility: [facility] Address:[address] [place], [place] [address]Performed By: #### 50515-4 ####[facility] LABCLIA [id number] [place], [place] [address]Xzrypfmq [Moles/Vol]96 mmol/MOom81-448QjntvnejbTwin City Hospital on above:Order Comment: Specimen Type: BLOOD SPECIMENOrdering Facility: [facility] Address:[address] [place], [place] [address]Performed By: #### 35794- 8 ####[facility] LABCLIA [id number] [place], [place] [address]RW9 [Moles/Vol]31 mmol/GHcjl19-49DxyvegfqaTwin City Hospital on above:Order Comment: Specimen Type: BLOOD SPECIMENOrdering Facility: [facility] Address:[address] [place], [place] [address]Performed By: #### 49369-2 ####[facility] LABCLIA [id number] [place], [place] [address]Rhfqqqanaa [Mass/Vol]0.79 mg/dL Normal0.73-1.22[facility] on above:Order Comment: Specimen Type: BLOOD SPECIMENOrdering Facility: [facility] Address:[address] [place], [place] [address]Performed By: #### 56826-3 ####[facility] LABCLIA [id number] [place], [place] [address]Cqacprjcxu and Glomerular filtration rate.predicted panel (S/P/Bld)97 mL/min/1.73m???Normal>=60[facility] on above:Order Comment: Specimen Type: BLOOD SPECIMENOrdering Facility: [facility] Address:[address] [facility] CENTERGiovanna [place], [place] [address]Ixjcwq Comment: Estimated Glomerular Filtration Rate (eGFR) is calculated using the 2020 CKD-EPI creatinine equation. This equation utilizes serum creatinine, sex, and age as parameters. The creatinine assay has traceable calibration to isotope dilution- mass spectrometry. Refer to KDIGO guidelines for clinical interpretation. In patients with unstable renal function, e.g. those with acute kidney injury, the eGFR may not accurately reflect actual GFR.Performed By: #### 58376-2 ####[facility] LABCLIA [id number] [place], [place] [address]Vfbmlsv [Mass/Vol]155 mg/nRZdww15-28XcslvwrmdTwin City Hospital on above:Order Comment: Specimen Type: BLOOD SPECIMENOrdering Facility: [facility] Address:[address] [place] [address]Fuupfe Comment: The [place] Diabetes Association (ADA) provides guidance for cutoff values for fasting glucose and random glucose. The ADA defines fasting as no caloric intake for at least 8 hours. Fasting plasma glucose results between 100 to 125 mg/dL indicate increased risk for diabetes (prediab etes).Fasting plasma glucose results greater than or equal to 126 mg/dL meet the criteria for diagnosis of diabetes. In the absence of unequivocal hyperglycemia, results should be confirmed by repeattesting. In a patient with classic symptoms of hyperglycemia or hyperglycemic crisis, random plasmaglucose results greater than or equal to 200 mg/dL meet the criteria for diagnosis of diabetes.Reference: Standards of Medical Care in Diabetes 2016, [place] Diabetes Association. Diabetes Care. 2016.39(Suppl 1).Performed By: #### 47514-7 ####[facility] LABCLIA [id number] [place], [place] [address]Tjlqefqni [Moles/Vol]3.8 mmol/LNormal3.7-5.1CU[facility] on above:Order Comment: Specimen Type: BLOOD SPECIMENOrdering Facility: [facility] Address:[address] [place], [place] [address]Performed By: #### 44342-5 ####[facility] LABCLIA [id number] [place], [place] [address]Hmqrfuz [Mass/Vol]6.9 g/dLNormal6.3-8.0[facility] on above:Order Comment: Specimen Type: BLOOD SPECIMENOrdering Facility: [facility] Address:[address] [place], [place] [address]Performed By: #### 16834- 8 ####[facility] LABCLIA [id number] [place], [place] [address]Muloaz [Moles/Vol]138 mmol/OLnmtth326-336IibrrgbfdTwin City Hospital on above:Order Comment: Specimen Type: BLOOD SPECIMENOrdering Facility: [facility] Address:[address] [place], [place] [address]Performed By: #### 99435-8 ####[facility] LABCLIA [id number] [place], [place] [address]Kdwf nitrogen [Mass/Vol]19 mg/dLNormal9-24[facility] on above:Order Comment: Specimen Type: BLOOD SPECIMENOrdering Facility: [facility] Address:[address] [place], [place] [address]Performed By: #### 36559-4 ####[facility] LABCLIA [id number] [place], [place] [address]Dgmmel SerPl-mCncon 03-96-8081Qxstyyyd [Mass/Vol]4.0 ug/dLLow4.8-19.5CU[facility] on above:Order Comment: Specimen Type: BLOOD SPECIMENOrdering Facility: [facility] Address:[address] [place], [place] [address]Result Comment: Provided reference range is from 6-10 AM sample collection time.Cortisol Reference Range: 6-10 AM = 4.8-19.5 ug/dL, 4-8 PM = 2.5-11.9 ug/dLPerformed By: #### 2143-6, 3016-3 ####[facility] [id number] [place] [id number] [facility] BAPTISTHbA1c (Bld)on [id number] glucose Estimated from glycated hemoglobin (Bld) [Mass/Vol]117 mg/dLNormal [facility] on above:Order Comment: Specimen Type: BLOOD SPECIMENOrdering Facility: [facility] Address:[address] [place], [place] [address]Result Comment: eAG: (Estimated average glucose) is a calculated value from HgbA1c and is telephone claims representative of the average blood glucose level in the last 2-3 month period.Performed By: #### 86765-1 ####[facility] [id number] [address] ST[address]ETHbA1c (Bld) [Mass fraction]5.7 %High4.3-5.6 [facility] on above:Order Comment: Specimen Type: BLOOD SPECIMENOrdering Facility: [facility] Address:[address] [place], [place] [address]Result Comment: [place] Diabetes Association guidelines indicate that patients with HgbA1c in the range 5.7-6.4% are at increased risk for development of diabetes, and intervention by lifestyle modification may be beneficial. HgbA1c greater or equal to 6.5% is considered diagnostic of diabetes.Performed By: #### 12759-0 ####[facility] [id number] [address] [address] [place] TSH SerPl-aCncon 71-63-8939JLO Qn0.571 m[IU]/LNormal0.270-4.200[facility] on above:Order Comment: Specimen Type: BLOOD SPECIMENOrdering Facility: [facility] Address:[address] [place], [place] [address]Performed By: #### 2143-6, 3016-3 ####[facility] LABCLIA [id number] [facility] [id number] VILLE [id number] [place] CBC W Auto Differential panel (Bld)on 58-42-1259Gyjmrynqh (Bld) [#/Vol]0.04 10*3/uLNormal<0.11[facility] on above:Order Comment: Specimen Type: BLOOD SPECIMENOrdering Facility: [facility] Address:[address] [place], [place] [address]Performed By: #### 63487-3 ####[facility] LABCLIA [id number] [place], [place] [address]Bxnjtcmxl/100 WBC (Bld)0.5 %NormalTwin City Hospital on above:Order Comment: Specimen Type: BLOOD SPECIMENOrdering Facility: [facility] Address:[address] [place], [place] [address]Performed By: #### 39255-8 ####[facility] LABIA [id number] [place], [place] [address]Nntksepxykji cell count method Nom (Bld)AutoNormalCUpper Valley Medical Center on above:Order Comment: Specimen Type: BLOOD SPECIMENOrdering Facility: [facility] Address:[address] [place], [place] [address]Performed By: #### 93568-5 ####[facility] LABCLIA [id number] [place], [place] [address]Xartrvemvys (Bld) [#/Vol]1.72 10*3/uLHigh<0.46[facility] on above:Order Comment: Specimen Type: BLOOD SPECIMENOrdering Facility: [facility] Address:[address] [place], [place] [address]Performed By: #### 43822-8 ####[facility] LABIA [id number] [place], [place] [address]Uoopoewujpn/100 WBC (Bld)22.5 %NormalTwin City Hospital on above:Order Comment: Specimen Type: BLOOD SPECIMENOrdering Facility: [facility] Address:[address] [place], [place] [address]Performed By: #### 47617-3 ####[facility] LABIA [id number] [place], [place] [address]Qvfvtadjuif distribution width (RBC) [Ratio]14.6 %Normal 11.5-15.0[facility] on above:Order Comment: Specimen Type: BLOOD SPECIMENOrdering Facility: [facility] Address:[address] [place], [place] [address]Performed By: #### 54351-1 ####[facility] LABIA [id number] [place] [address] Hematocrit (Bld) [Volume fraction]35.6 %Low39.0-51.0[facility] Comment on above:Order Comment: Specimen Type: BLOOD SPECIMENOrdering Facility: [facility] Address:[address] [place] [address] Performed By: #### 70656-2 ####[facility] LABIA [id number] [place], [place] [address]Qzfajbdhpu (Bld) [Mass/Vol]11.9 g/dLLow13.0-17.0[facility] on above:Order Comment: Specimen Type: BLOOD SPECIMENOrdering Facility: [facility] Address:[address] [place], [place] [address]Performed By: #### 59832-8 ####[facility] LABIA [id number] [place], [place] [address]Wkaiyscv granulocytes (Bld) [#/Vol]0.03 10*3/uLNormal <0.10[facility] on above:Order Comment: Specimen Type: BLOOD SPECIMENOrdering Facility: [facility] Address:[address] [place], [place] [address]Performed By: #### 69892-1 ####[facility] LABCLIA [id number] [place], [place] [address]Wxdmkxic granulocytes/100 WBC (Bld)0.4 %NormalTwin City Hospital on above: Order Comment: Specimen Type: BLOOD SPECIMENOrdering Facility: [facility] Address:[address] [place], [place] [address]Performed By: #### 89579- 8 ####[facility] LABCLIA [id number] [place], [place] [address]Hcbpdhkyrls (Bld) [#/Vol]1.47 10*3/uLNormal1.00-4.00 [facility] on above:Order Comment: Specimen Type: BLOOD SPECIMENOrdering Facility: [facility] Address:[address] [place], [place] [address]Performed By: #### 39698-5 ####[facility] LABIA [id number] [place], [place] [address]Eepfdunwydh/100 WBC (Bld)19.2 %NormalTwin City Hospital on above:Order Comment: Specimen Type: BLOOD SPECIMENOrdering Facility: [facility] Address:[address] [place], [place] [address]Performed By: #### 20591-4 ####[facility] LABCLIA [id number] [place], [place] [address]QQD (RBC) [Entitic mass]29.4 wfYunpkk25.0-34.0[facility] on above:Order Comment: Specimen Type: BLOOD SPECIMENOrdering Facility: [facility] Address:[address] [place], [place] [address]Performed By: #### 54297-4 ####[facility] LABCLIA [id number] [place], [place] [address]FFNT (RBC) [Mass/Vol]33.4 g/lGHmllhy08.5-36.0[facility] on above: Order Comment: Specimen Type: BLOOD SPECIMENOrdering Facility: [facility] Address:[address] [place], [place] [address]Performed By: #### 35153- 8 ####[facility] LABCLIA [id number] [place], [place] [address]TAY (RBC) [Entitic vol]87.9 lAQvebou80.0-100.0[facility] on above:Order Comment: Specimen Type: BLOOD SPECIMENOrdering Facility: [facility] Address:[address] [place], [place] [address]Performed By: #### 56258-9 ####[facility] LABIA [id number] [place], [place] [address]Qrsjuicgv (Bld) [#/Vol]0.58 10*3/uLNormal<0.87[facility] on above:Order Comment: Specimen Type: BLOOD SPECIMENOrdering Facility: [facility] Address:[address] [place], [place] [address]Performed By: #### 24864- 8 ####[facility] LABIA [id number] [place], [place] [address]Bsifjibjr/100 WBC (Bld)7.6 %NormalTwin City Hospital on above:Order Comment: Specimen Type: BLOOD SPECIMENOrdering Facility: [facility] Address:[address] [place], [place] [address]Performed By: #### 35341-3 ####[facility] LABIA [id number] [place], [place] [address]Svftanhmguj (Bld) [#/Vol]3.81 10*3/uLNormal1.45-7.50[facility] on above:Order Comment: Specimen Type: BLOOD SPECIMENOrdering Facility: [facility] Address:[address] [place], [place] [address]Performed By: #### 23267-6 ####[facility] LABCLIA [id number] [place], [place] [address]Svcwxywlhuh/100 WBC (Bld)49.8 %NormalTwin City Hospital on above:Order Comment: Specimen Type: BLOOD SPECIMENOrdering Facility: [facility] Address:[address] [place], [place] [address]Performed By: #### 77398-3 ####[facility] LABCLIA [id number] [place], [place] [address]Jejrzehmo RBC (Bld) [#/Vol] 10*3/uLNormal<0.01[facility] on above:Order Comment: Specimen Type: BLOOD SPECIMENOrdering Facility: [facility] Address:[address] [place], [place] [address]Performed By: #### 77984-4 ####[facility] LABCLIA [id number] [place], [place] [address]Xntdopxir RBC/100 WBC (Bld) [Ratio]0.0 /100 WBCNormal [facility] on above:Order Comment: Specimen Type: BLOOD SPECIMENOrdering Facility: [facility] Address:[address] [place], [place] [address]Performed By: #### 04422-8 ####[facility] LABCLIA [id number] [place], [place] [address]Euzvjgoo mean volume (Bld) [Entitic vol]9.6 fLNormal9.0-12.7[facility] on above:Order Comment: Specimen Type: BLOOD SPECIMENOrdering Facility: [facility] Address:[address] [place] [address] Performed By: #### 28671-3 ####[facility] LABIA [id number] [place], [place] [address]Izbmritse (Bld) [#/Vol]235 10*3/fHXdfeul630-542Pbkfyoupc Clinic ClevelandComment on above:Order Comment: Specimen Type: BLOOD SPECIMENOrdering Facility: [facility] Address:[address] [place], [place] [address]Performed By: #### 89777-4 ####[facility] LABCLIA [id number] [place], [place] [address]QCE (Bld) [#/Vol]4.05 10*6/uLLow4.20-6.00[facility] on above:Order Comment: Specimen Type: BLOOD SPECIMENOrdering Facility: [facility] Address:[address] [place], [place] [address]Performed By: #### 88583-8 ####[facility]IB[facility] LABIA [id number] [place], [place] [address]WLX (Bld) [#/Vol]7.65 10*3/uL Normal3.70-11.00[facility] on above:Order Comment: Specimen Type: BLOOD SPECIMENOrdering Facility: [facility] Address:[address] [place], [place] [address]Performed By: #### 12993-6 ####[facility]ITALMARIBEL [facility] LABIA [id number] [place], [place] [address]YVI CBC W AUTO DIFF BLDon 00-91-5731Xowzsbfvh/100 WBC (Bld)0.5 %NOMS HealthcareF BASOPHILS # BLD AUTO0.04NINFTexas County Memorial Hospital DIFFERENTIAL METHOD BLDAutoNOMS HealthcareF EOSINOPHIL # BLD AUTO1.72HighNINF NOMS HealthcareF LYMPHOCYTES # BLD AUTO1.47NOUniversity Health Truman Medical CenterF MONOCYTES # BLD AUTO0.58NINFHeartland Behavioral Health ServicesF NEUTROPHILS # BLD AUTO3.81NOUniversity Health Truman Medical CenterF NRBC # BLD AUTO<0.01NINFHeartland Behavioral Health ServicesF NRBC/100 WBC BLD-RTO0/100 WBCNOCT HealthcareF PLATELET # BLD [id number] Health Truman Medical CenterF PMV BLD AUTO9.6 fL9.0 - 12.7 fLNOUniversity Health Truman Medical CenterF WBC # BLD AUTO7.65NOMS HealthcareEosinophils/100 WBC (Bld)22.5 %[facility]–Barry RoadErythrocyte distribution width (RBC) [Ratio]14.6 %11.5 - 15.0 %[facility]–Barry RoadHematocrit (Bld) [Volume fraction]35.6 %Low39.0 - 51.0 % [facility]–Barry RoadHemoglobin (Bld) [Mass/Vol]11.9 g/dLLow13.0 - 17.0 g/dLJefferson Memorial Hospital GRANULOCYTES # BLD AUTO0.03NINFJefferson Memorial Hospital GRANULOCYTES/LEUK NFR BLD AUTO0.4 %[facility]–Barry RoadInterpretation and review of laboratory resultsAbnormalSaint Luke's North Hospital–Barry RoadLymphocytes/100 WBC (Bld)19.2 %[facility]–Barry RoadMCH (RBC) [Entitic mass]29.4 pg26.0 - 34.0 pgSaint Luke's North Hospital–Barry RoadMCHC (RBC) [Mass/Vol]33.4 g/dL30.5 - 36.0 g/dLSaint Luke's North Hospital–Barry RoadMCV (RBC) [Entitic vol]87.9 fL 80.0 - 100.0 fLSaint Luke's North Hospital–Barry RoadMonocytes/100 WBC (Bld)7.6 %[facility] Neutrophils/100 WBC (Bld)49.8 %[facility]–Barry RoadRBC (Bld) [#/Vol]4.05 10*6/uLLow 4.20 - 6.00 m/uLUTAH STATE [facility] HealthcareSpecimen Type: BLOOD SPECIMEN Ordering Facility: [facility] Address: [address] [place] [address] Original Ordering Provider: LO MOREIRACT HealthcareCNOVon 08-59-1485LIPEMtcmbwEawtehzns Randolph HealthCNOVNormalCleveland Randolph HealthCNOVSPon 43-15-1041FGNZWLJmhufjPwillxovw Randolph HealthComprehensive metabolic 2000 panelon 06-53-5538Gqxiqsv [Mass/Vol]4.4 g/dLNormal3.9-4.9 [facility] HospitalCommymichigan medical center west branch on above:Order Comment: Specimen Type: BLOOD SPECIMENOrdering Facility: [facility] Address:[address] [place], [place] [address]Performed By: #### 15049-2, 34811-6 ####[facility] HOSPITALMARIBEL [facility] LABCLIA [id number] ERNIESAN [facility] YURYDIGNITY HEALTH ST[facility] JO[facility]PH'[facility] WESTG[facility] MEDICAL CENTERTESSANORTH [place], [place] [address]GRD [Catalytic activity/Vol]81 U/OMbbzqm64-376YekvcvcapTwin City Hospital on above:Order Comment: Specimen Type: BLOOD SPECIMENOrdering Facility: [facility] Address:[address] [place], [place] [address]Performed By: #### 27725-9, 03747-0 ####[facility] LABCLIA [id number] [facility] [place], [place] [address]JRM [Catalytic activity/Vol]24 U/LNormal 10-54[facility] on above:Order Comment: Specimen Type: BLOOD SPECIMENOrdering Facility: [facility] Address:[address] [place], [place] [address]Performed By: #### 82196-1, 41267-7 ####[facility] LABCLIA [id number] [place], [place] [address]Tudvm gap [Moles/Vol]11 mmol/LNormal8-15[facility] on above:Order Comment: Specimen Type: BLOOD SPECIMENOrdering Facility: [facility] Address:[address] [place] [address] Performed By: #### 64864-7, 24823-3 ####[facility] LABCLIA [id number] [facility] [place], [place] [address]LQK [Catalytic activity/Vol]20 U/KQzevkq32-21ZzyxahaawTwin City Hospital on above:Order Comment: Specimen Type: BLOOD SPECIMENOrdering Facility: [facility] Address:[address] [place], [place] [address]Performed By: #### 70178- 9, 91529-8 ####[facility] LABCLIA [id number] [facility] [place], [place] [address]Emmxoadbg [Mass/Vol]0.3 mg/dLNormal0.2-1.3CU[facility] on above:Order Comment: Specimen Type: BLOOD SPECIMENOrdering Facility: [facility] Address:[address] [place], [place] [address]Performed By: #### 22679-0, 35814-5 ####[facility] LABCLIA [id number] [place], [place] [address]Ptfayat [Mass/Vol]9.8 mg/dLNormal8.5-10.2CU[facility] on above: Order Comment: Specimen Type: BLOOD SPECIMENOrdering Facility: [facility] Address:[address] [place], [place] [address]Performed By: #### 44800- 9, 36698-0 ####[facility] LABCLIA [id number] [place], [place] [address]Itfuiwcg [Moles/Vol]97 mmol/ENza68-677BqrbcbdtaTwin City Hospital on above:Order Comment: Specimen Type: BLOOD SPECIMENOrdering Facility: [facility] Address:[address] [place], [place] [address]Performed By: #### 82866-7, 59654-7 ####[facility] LABCLIA [id number] [place], [place] [address]WX8 [Moles/Vol]31 mmol/JEfum01-88IresmxfzbTwin City Hospital on above:Order Comment: Specimen Type: BLOOD SPECIMENOrdering Facility: [facility] Address:[address] [place], [place] [address]Performed By: #### 14514- 9, 96518-7 ####[facility] LABCLIA [id number] [place], [place] [address]Mbicjvqttg [Mass/Vol]0.98 mg/dLNormal0.73-1.22 [facility] on above:Order Comment: Specimen Type: BLOOD SPECIMENOrdering Facility: [facility] Address:[address] [place], [place] [address]Performed By: #### 14822-1, 20155-2 ####[facility] LABCLIA [id number] [place] [address] Creatinine and Glomerular filtration rate.predicted panel (S/P/Bld)84 mL/min/1.73m???Normal>=60[facility] on above:Order Comment: Specimen Type: BLOOD SPECIMENOrdering Facility: [facility] Address:[address] [place], [place] [address]Result Comment: Estimated Glomerular Filtration Rate (eGFR) is calculated using the 2020 CKD-EPI cre atinine equation. This equation utilizes serum creatinine, sex, and age as parameters. The creatinine assay has traceable calibration to isotope dilution- mass spectrometry. Refer to KDIGO guidelines for clinical interpretation. In patients with unstable renal function, e.g. those with acute kidney injury, the eGFR may not accurately reflect actual GFR.Performed By: #### 09591-6, 74699-2 ####[facility] LABIA [id number] [place], [place] [address]Lrwbwct [Mass/Vol]155 mg/gSFpyw49-41MdkuoskloTwin City Hospital on above:Order Comment: Specimen Type: BLOOD SPECIMENOrdering Facility: [facility] Address:[address] [place] [address] Comment: The [place] Diabetes Association (ADA) provides guidance for cutoff values for fasting glucose and random glucose. The ADA defines fasting as no caloric intake for at least 8 hours. Fasting plasma glucose results between 100 to 125 mg/dL indicate increased risk for diabetes (prediab etes).Fasting plasma glucose results greater than or equal to 126 mg/dL meet the criteria for diagnosis of diabetes. In the absence of unequivocal hyperglycemia, results should be confirmed by repeattesting. In a patient with classic symptoms of hyperglycemia or hyperglycemic crisis, random plasmaglucose results greater than or equal to 200 mg/dL meet the criteria for diagnosis of diabetes.Reference: Standards of Medical Care in Diabetes 2016, [place] Diabetes Association. Diabetes Care. 2016.39(Suppl 1).Performed By: #### 29830- 9, 79978-5 ####[facility] LABCLIA [id number] [place], [place] [address]Ggywhuxeq [Moles/Vol]3.1 mmol/LLow3.7-5.1CU[facility] on above:Order Comment: Specimen Type: BLOOD SPECIMENOrdering Facility: [facility] Address:[address] [place], [place] [address]Performed By: #### 51708-6, 02889-1 ####[facility] LABCLIA [id number] [place], [place] [address]Lxmlple [Mass/Vol]6.7 g/dLNormal6.3-8.0[facility] on above:Order Comment: Specimen Type: BLOOD SPECIMENOrdering Facility: [facility] Address:[address] [place], [place] [address]Performed By: #### 65422- 9, 87694-3 ####[facility] LABCLIA [id number] [place], [place] [address]Kdaqvh [Moles/Vol]139 mmol/CSjdtok689-629IpntwitkpTwin City Hospital on above:Order Comment: Specimen Type: BLOOD SPECIMENOrdering Facility: [facility] Address:[address] [place], [place] [address]Performed By: #### 15032-0, 31414-8 ####[facility] LABCLIA [id number] [place], [place] [address]Issd nitrogen [Mass/Vol]17 mg/dLNormal9-24[facility] on above: Order Comment: Specimen Type: BLOOD SPECIMENOrdering Facility: [facility] Address:[address] [place], [place] [address]Performed By: #### 85530- 9, 57211-0 ####[facility] LABCLIA [id number] [place], [place] [address]Ztlair SerPl-mCncon 40-79-8223Dysxaugw [Mass/Vol] 2.9 ug/dLLow4.8-19.5CU[facility] on above:Order Comment: Specimen Type: BLOOD SPECIMENOrdering Facility: [facility] Address:[address] [place] [address]Gusbkc Comment: Provided reference range is from 6-10 AM sample collection time.Cortisol Reference Range: 6-10 AM = 4.8-19.5 ug/dL, 4-8 PM = 2.5-11.9 ug/dLPerformed By: #### 3016-3, 2142-6 ####[facility] LABCLIA [id number] [address] STATES OF MARTINS FERRY HOSPITALMAGNESIUMOrdered By: Evelyn Fraga on 36-59-5231Mibxtdndk [Mass/Vol]1.9 mg/dL1.7 - 2.3 mg/dLSelect Medical Cleveland Clinic Rehabilitation Hospital, Edwin ShawMagnesium SerPl-mCncon 99-79-2200Xkakhivoo [Mass/Vol]1.9 mg/dLNormal 1.7-2.3CU[facility] on above:Order Comment: Specimen Type: BLOOD SPECIMENOrdering Facility: [facility] Address:[address] [place] [address]Daghkbqmw By: #### 30074-5, 18422-2 ####[facility] LABCLIA [id number] [place], [place] [address]Ohtoqtksj [Mass/Vol]Ordered By: Evelyn Fraga on 95-63-1820Diqouighxppxjf and review of laboratory resultsNormalCBarnesville Hospital SerPl-aCncon 89-12-1109YFE Qn1.700 m[IU]/LNormal0.270-4.200[facility] on above:Order Comment: Specimen Type: BLOOD SPECIMENOrdering Facility: [facility] Address:[address] [place] [address]Kburlutkq By: #### 3016-3, 6 ####[facility] LABCLIA [id number] [address] STATES [place] CNCNPATEDon 71-37-3155GNDZCHKTCSvrlhqMokktqofp Clinic ClevelandCNPNon 06-13-2024 CNPNNormalHighland District Hospital Health Noteon 75-93-4286Hghgnjzc Health [id number]#1.00OTGTIFFMedina HospitalCNPNon 48-30-3882CWGZRowdjvFbxakarxp Clinic ClevelandCB W Auto Differential panel (Bld)on 64-94-9165Meuevsxdq (Bld) [#/Vol]0.03 10*3/uLNormal <0.11[facility] on above:Order Comment: Specimen Type: BLOOD SPECIMENOrdering Facility: [facility] Address:[address] [place], [place] [address]Performed By: #### 68662-6 ####[facility] LABIA [id number] [place] [address] Basophils/100 WBC (Bld)0.5 %NormalTwin City Hospital on above: Order Comment: Specimen Type: BLOOD SPECIMENOrdering Facility: [facility] Address:[address] [place], [place] [address]Performed By: #### 71026- 8 ####[facility] LABCLIA [id number] [place], [place] [address]Iuaqikguhpgl cell count method Nom (Bld)AutoNormal [facility] on above:Order Comment: Specimen Type: BLOOD SPECIMENOrdering Facility: [facility] Address:[address] [place], [place] [address]Performed By: #### 66694-6 ####[facility] LABIA [id number] [place], [place] [address]Wrhezvuhmms (Bld) [#/Vol]0.44 10*3/uLNormal<0.46[facility] on above: Order Comment: Specimen Type: BLOOD SPECIMENOrdering Facility: [facility] Address:[address] [place], [place] [address]Performed By: #### 39025- 8 ####[facility] LABCLIA [id number] [place], [place] [address]Elvcirtmjqr/100 WBC (Bld)7.9 %NormalTwin City Hospital on above:Order Comment: Specimen Type: BLOOD SPECIMENOrdering Facility: [facility] Address:[address] [place], [place] [address]Performed By: #### 52221-0 ####[facility] LABIA [id number] [place], [place] [address]Qyxkslnoszy distribution width (RBC) [Ratio]15.0 %Fbizkq74.5-15.0[facility] on above: Order Comment: Specimen Type: BLOOD SPECIMENOrdering Facility: [facility] Address:[address] [place], [place] [address]Performed By: #### 21917- 8 ####[facility] LABIA [id number] [place], [place] [address]Rivepjtqjb (Bld) [Volume fraction]35.9 %Low39.0-51.0 [facility] on above:Order Comment: Specimen Type: BLOOD SPECIMENOrdering Facility: [facility] Address:[address] [place], [place] [address]Performed By: #### 72690-7 ####[facility] LABIA [id number] [place], [place] [address]Ozslyqxjhp (Bld) [Mass/Vol]12.2 g/dLLow13.0-17.0[facility] on above:Order Comment: Specimen Type: BLOOD SPECIMENOrdering Facility: [facility] Address:[address] [place], [place] [address]Performed By: #### 78205- 8 ####[facility] LABIA [id number] [place], [place] [address]Tnxfqknu granulocytes (Bld) [#/Vol]10*3/uLNormal<0.10 [facility] on above:Order Comment: Specimen Type: BLOOD SPECIMENOrdering Facility: [facility] Address:[address] [place], [place] [address]Performed By: #### 49418-7 ####[facility] LABCLIA [id number] [place], [place] [address]Zhhpgbas granulocytes/100 WBC (Bld)0.4 %NormalTwin City Hospital on above: Order Comment: Specimen Type: BLOOD SPECIMENOrdering Facility: [facility] Address:[address] [place], [place] [address]Performed By: #### 05158- 8 ####[facility] LABCLIA [id number] [place], [place] [address]Duxbhawyagv (Bld) [#/Vol]1.01 10*3/uLNormal1.00-4.00 [facility] on above:Order Comment: Specimen Type: BLOOD SPECIMENOrdering Facility: [facility] Address:[address] [place], [place] [address]Performed By: #### 24623-1 ####[facility] LABCLIA [id number] [place], [place] [address]Oinsunofchu/100 WBC (Bld)18.1 %NormalTwin City Hospital on above:Order Comment: Specimen Type: BLOOD SPECIMENOrdering Facility: [facility] Address:[address] [place], [place] [address]Performed By: #### 22570-1 ####[facility] LABCLIA [id number] [place], [place] [address]WVK (RBC) [Entitic mass]29.8 fvRgrfvv23.0-34.0[facility] on above:Order Comment: Specimen Type: BLOOD SPECIMENOrdering Facility: [facility] Address:[address] [place], [place] [address]Performed By: #### 18742-4 ####[facility] LABCLIA [id number] [place], [place] [address]FLPT (RBC) [Mass/Vol]34.0 g/pXZwkole21.5-36.0[facility] on above: Order Comment: Specimen Type: BLOOD SPECIMENOrdering Facility: [facility] Address:[address] [place], [place] [address]Performed By: #### 84228- 8 ####[facility] LABCLIA [id number] [place], [place] [address]IBS (RBC) [Entitic vol]87.6 qULvrxmm78.0-100.0[facility] on above:Order Comment: Specimen Type: BLOOD SPECIMENOrdering Facility: [facility] Address:[address] [place], [place] [address]Performed By: #### 16597-3 ####[facility] LABIA [id number] [place], [place] [address]Efnadwrxn (Bld) [#/Vol]0.59 10*3/uLNormal<0.87[facility] on above:Order Comment: Specimen Type: BLOOD SPECIMENOrdering Facility: [facility] Address:[address] [place], [place] [address]Performed By: #### 26650- 8 ####[facility] LABCLIA [id number] [place], [place] [address]Itfejxlkf/100 WBC (Bld)10.6 %NormalTwin City Hospital on above:Order Comment: Specimen Type: BLOOD SPECIMENOrdering Facility: [facility] Address:[address] [place], [place] [address]Performed By: #### 75510-8 ####[facility] LABIA [id number] [place], [place] [address]Qpaxkrvtbfd (Bld) [#/Vol]3.49 10*3/uLNormal1.45-7.50[facility] on above:Order Comment: Specimen Type: BLOOD SPECIMENOrdering Facility: [facility] Address:[address] [place], [place] [address]Performed By: #### 09137-2 ####[facility] LABCLIA [id number] [place], [place] [address]Rubnrdjogki/100 WBC (Bld)62.5 %NormalTwin City Hospital on above:Order Comment: Specimen Type: BLOOD SPECIMENOrdering Facility: [facility] Address:[address] [place], [place] [address]Performed By: #### 03690-8 ####[facility] LABCLIA [id number] [place], [place] [address]Kpsqejezh RBC (Bld) [#/Vol] 10*3/uLNormal<0.01[facility] on above:Order Comment: Specimen Type: BLOOD SPECIMENOrdering Facility: [facility] Address:[address] [place], [place] [address]Performed By: #### 21528-8 ####[facility] LABIA [id number] [place], [place] [address]Tqpfgxfbv RBC/100 WBC (Bld) [Ratio]0.0 /100 WBCNormal [facility] on above:Order Comment: Specimen Type: BLOOD SPECIMENOrdering Facility: [facility] Address:[address] [place], [place] [address]Performed By: #### 06280-9 ####[facility] LABCLIA [id number] [place], [place] [address]Zdnegzbe mean volume (Bld) [Entitic vol]9.4 fLNormal9.0-12.7[facility] on above:Order Comment: Specimen Type: BLOOD SPECIMENOrdering Facility: [facility] Address:[address] [place] [address] Performed By: #### 31322-5 ####[facility] LABCLIA [id number] [place], [place] [address]Gstrdtwet (Bld) [#/Vol]205 10*3/zKFekpbe106-298ReduiqqhpTwin City Hospital on above:Order Comment: Specimen Type: BLOOD SPECIMENOrdering Facility: [facility] Address:[address] [place], [place] [address]Performed By: #### 55485-5 ####[facility] LABCLIA [id number] [place], [place] [address]SVI (Bld) [#/Vol]4.10 10*6/uLLow4.20-6.00[facility] on above:Order Comment: Specimen Type: BLOOD SPECIMENOrdering Facility: [facility] Address:[address] [place], [place] [address]Performed By: #### 60888-7 ####[facility] LABIA [id number] [place], [place] [address]ZVI (Bld) [#/Vol]5.58 10*3/uL Normal3.70-11.00[facility] on above:Order Comment: Specimen Type: BLOOD SPECIMENOrdering Facility: [facility] Address:[address] [place], [place] [address]Performed By: #### 93564-7 ####[facility] LABCLIA [id number] [place], [place] [address]BLEHIMkr 61-92-5606GNWWLCFtckrsGaehtrzhe Clinic [place] CNPNon 05-86-5431CTONEorvetDqlblwosw Clinic ClevelandComprehensive metabolic 2000 panelon 91-99-9742Elnjnby [Mass/Vol]4.5 g/dLNormal3.9-4.9[facility] on above:Order Comment: Specimen Type: BLOOD SPECIMENOrdering Facility: [facility] Address:[address] [place], [place] [address]Performed By: #### 86985-1 ####[facility] LABCLIA [id number] [place] [address]TDC [Catalytic activity/Vol]67 U/RTllarb49-676SbccxlgonTwin City Hospital on above:Order Comment: Specimen Type: BLOOD SPECIMENOrdering Facility: [facility] Address:[address] [place], [place] [address]Performed By: #### 77377-2 ####[facility] LABCLIA [id number] [place] [address]YHH [Catalytic activity/Vol]24 U/CQnepbd91-49EhcmtooidTwin City Hospital on above:Order Comment: Specimen Type: BLOOD SPECIMENOrdering Facility: [facility] Address:[address] [place], [place] [address]Performed By: #### 03548-6 ####[facility] LABCLIA [id number] [place] [facility]SD[facility] CENTERT[place]ANOR[place], [place] [address]Otrrv gap [Moles/Vol]11 mmol/LNormal8-15[facility] on above:Order Comment: Specimen Type: BLOOD SPECIMENOrdering Facility: [facility] Address:[address] [place], [place] [address]Performed By: #### 32793- 8 ####[facility] LABCLIA [id number] [place] [address]OJH [Catalytic activity/Vol]25 U/LVyxvht64-74SfmssnfynTwin City Hospital on above:Order Comment: Specimen Type: BLOOD SPECIMENOrdering Facility: [facility] Address:[address] [place], [place] [address]Performed By: #### 16784-4 ####[facility] LABCLIA [id number] [place] CANORENEDIGNITY HEALTH ST[facility] CENTERTESSANORTH [place], [place] [address]Ufbrghcqg [Mass/Vol]0.4 mg/dLNormal0.2-1.3[facility] on above:Order Comment: Specimen Type: BLOOD SPECIMENOrdering Facility: [facility] Address:[address] [place], [place] [address]Performed By: #### 48613- 8 ####[facility] LABCLIA [id number] [facility] CENTERMARIALUISA [place], [place] [address]Ncqkrzq [Mass/Vol]9.4 mg/dLNormal8.5-10.2[facility] on above:Order Comment: Specimen Type: BLOOD SPECIMENOrdering Facility: [facility] Address:[address] [place], [place] [address]Performed By: #### 41084-8 ####[facility] LABCLIA [id number] [place], [place] [address]Mxlzefvq [Moles/Vol]94 mmol/L Gks24-780DboigacldTwin City Hospital on above:Order Comment: Specimen Type: BLOOD SPECIMENOrdering Facility: [facility] Address:[address] [place], [place] [address]Performed By: #### 88998-4 ####[facility] LABCLIA [id number] [place] [address] CO2 [Moles/Vol]32 mmol/LJwak22-38IbuoonslqTwin City Hospital on above: Order Comment: Specimen Type: BLOOD SPECIMENOrdering Facility: [facility] Address:[address] [place], [place] [address]Performed By: #### 86281- 8 ####[facility] LABCLIA [id number] [facility] [place], [place] [address]Rgcfmagtrt [Mass/Vol]0.74 mg/dLNormal0.73-1.22[facility] on above:Order Comment: Specimen Type: BLOOD SPECIMENOrdering Facility: [facility] Address:[address] [place], [place] [address]Performed By: #### 41951-0 ####[facility] LABCLIA [id number] [place], [place] [address]Sahjshvmww and Glomerular filtration rate.predicted panel (S/P/Bld)99 mL/min/1.73m???Normal>=60 [facility] on above:Order Comment: Specimen Type: BLOOD SPECIMENOrdering Facility: [facility] Address:[address] [place], [place] [address]Jepxcg Comment: Estimated Glomerular Filtration Rate (eGFR) is calculated using the 2020 CKD-EPI creatinine equation. This equation utilizes serum creatinine, sex, and age as parameters. The creatinine assay has traceable calibration to isotope dilution-mass spectrometry. Refer to KDIGO guidelines for clinical interpretation. In patients with unstable renal function, e.g. those with acute kidney injury, the eGFR may not accurately reflect actual GFR.Performed By: #### 49987-1 ####[facility] LABIA [id number] [place], [place] [address]Ptwcxns [Mass/Vol]143 mg/dWPxsf46-80LuwdtumjnTwin City Hospital on above:Order Comment: Specimen Type: BLOOD SPECIMENOrdering Facility: [facility] Address:[address] [place], [place] [address]Result Comment: The [place] Diabetes Association (ADA) provides guidance for cutoff values for fast ing glucose and random glucose. The ADA defines fasting as no caloric intake for at least 8 hours. Fasting plasma glucose results between 100 to 125 mg/dL indicate increased risk for diabetes (prediabetes).Fasting plasma glucose results greater than or equal to 126 mg/dL meet the criteria for diagnosis of diabetes. In the absence of unequivocal hyperglycemia, results should be confirmed by repeattesting. In a patient with classic symptoms of hyperglycemia or hyperglycemic crisis, random plasmaglucose results greater than or equal to 200 mg/dL meet the criteria for diagnosis of diabetes.Reference: Standards of Medical Care in Diabetes 2016, [place] Diabetes Association. Diabetes Care. 2016.39(Suppl 1).Performed By: #### 09536-9 ####[facility] LABIA [id number] [place], [place] [address]Ymntupizt [Moles/Vol]3.2 mmol/LLow3.7-5.1[facility] on above:Order Comment: Specimen Type: BLOOD SPECIMENOrdering Facility: [facility] Address:[address] [place], [place] [address]Performed By: #### 13643- 8 ####[facility] LABCLIA [id number] [place], [place] [address]Wianake [Mass/Vol]6.4 g/dLNormal6.3-8.0[facility] on above:Order Comment: Specimen Type: BLOOD SPECIMENOrdering Facility: [facility] Address:[address] [place], [place] [address]Performed By: #### 01925-4 ####[facility] LABCLIA [id number] [place], [place] [address]Rusuox [Moles/Vol]137 mmol/L Nxwyqf907-655GnwmyalpuTwin City Hospital on above:Order Comment: Specimen Type: BLOOD SPECIMENOrdering Facility: [facility] Address:[address] [place], [place] [address]Performed By: #### 79824-0 ####[facility] LABCLIA [id number] [place] [address] Urea nitrogen [Mass/Vol]15 mg/dLNormal9-24[facility] on above:Order Comment: Specimen Type: BLOOD SPECIMENOrdering Facility: [facility] Address:[address] [place], [place] [address]Performed By: #### 67287-6 ####[facility] LABCLIA [id number] [place], [place] [address]Rkcyyf SerPl-mCdeniaon 61-34-3578Fnbdibnh [Mass/Vol]7.1 ug/dLNormal4.8-19.5[facility] on above:Order Comment: Specimen Type: BLOOD SPECIMENOrdering Facility: [facility] Address:[address] [place], [place] [address]Result Comment: Provided reference range is from 6-10 AM sample collection time.Cortisol Reference Range: 6-10 AM = 4.8-19.5 ug/dL, 4-8 PM = 2.5-11.9 ug/dLPerformed By: #### 3016-3, 2142-08 ####[facility] LABIA [id number] [address] OF DIKLDWERuY3u (Bld)on 32-93-6258Abprzkt glucose Estimated from glycated hemoglobin (Bld) [Mass/Vol]123 mg/dLNormal [facility] on above:Order Comment: Specimen Type: BLOOD SPECIMENOrdering Facility: [facility] Address:[address] [place], [place] [address]Result Comment: eAG: (Estimated average glucose) is a calculated value from HgbA1c and is telephone claims representative of the average blood glucose level in the last 2-3 month period.Performed By: #### 20151-9 ####[facility] [id number] [address]ETHbA1c (Bld) [Mass fraction]5.9 %High4.3-5.6 [facility] on above:Order Comment: Specimen Type: BLOOD SPECIMENOrdering Facility: [facility] Address:[address] [place], [place] [address]Result Comment: [place] Diabetes Association guidelines indicate that patients with HgbA1c in the range 5.7-6.4% are at increased risk for development of diabetes, and intervention by lifestyle modification may be beneficial. HgbA1c greater or equal to 6.5% is considered diagnostic of diabetes.Performed By: #### 75031-0 ####[facility] [id number] [address] OF [place] TSH SerPl-aCncon 14-65-0141ZWQ Qn1.050 m[IU]/LNormal0.270-4.200[facility] on above:Order Comment: Specimen Type: BLOOD SPECIMENOrdering Facility: [facility] Address:[address] [place], [place] [address]Performed By: #### 3016-3, 2142-08 ####[facility] LABIA [id number] [address] [place] [address] [place] [facility] CNOVon 16-42-3577JXLYQlhhjxXlhzgngyv Clinic ClevelandCNOV 24-02-1315KWLQLrladg St. Elizabeth HospitalCNOVon 80-84-1439XQFLMdbbkzPbbwtvdyn Clinic [place] CBC W Auto Differential panel (Bld)on 94-46-5173Xtamqfadm (Bld) [#/Vol]0.05 10*3/uLNormal<0.11[facility] on above:Order Comment: Specimen Type: BLOOD SPECIMENOrdering Facility: [facility] Address:[address] [place], [place] [address]Performed By: #### 48389-4 ####[facility] LABCLIA [id number] [place], [place] [address]Cpfrodoza/100 WBC (Bld)0.7 %NormalTwin City Hospital on above:Order Comment: Specimen Type: BLOOD SPECIMENOrdering Facility: [facility] Address:[address] [place], [place] [address]Performed By: #### 14415-4 ####[facility] LABCLIA [id number] [place], [place] [address]Tkpeenmfqmgj cell count method Nom (Bld)AutoNormalCUpper Valley Medical Center on above:Order Comment: Specimen Type: BLOOD SPECIMENOrdering Facility: [facility] Address:[address] [place], [place] [address]Performed By: #### 69926-8 ####[facility] LABCLIA [id number] [place], [place] [address]Yvyvmctrrlt (Bld) [#/Vol]0.32 10*3/uLNormal<0.46[facility] on above:Order Comment: Specimen Type: BLOOD SPECIMENOrdering Facility: [facility] Address:[address] [place], [place] [address]Performed By: #### 11207-8 ####[facility] LABCLIA [id number] [place], [place] [address]Tcjyzwcrdmt/100 WBC (Bld)4.2 %NormalTwin City Hospital on above:Order Comment: Specimen Type: BLOOD SPECIMENOrdering Facility: [facility] Address:[address] [place], [place] [address]Performed By: #### 47627-4 ####[facility] LABCLIA [id number] [place], [place] [address]Ssszdhuudgz distribution width (RBC) [Ratio]14.6 %Normal 11.5-15.0[facility] on above:Order Comment: Specimen Type: BLOOD SPECIMENOrdering Facility: [facility] Address:[address] [place], [place] [address]Performed By: #### 50865-4 ####[facility] LABIA [id number] [place] [address] Hematocrit (Bld) [Volume fraction]36.0 %Low39.0-51.0[facility] Comment on above:Order Comment: Specimen Type: BLOOD SPECIMENOrdering Facility: [facility] Address:[address] [place] [address] Performed By: #### 54654-8 ####[facility] LABIA [id number] [place], [place] [address]Unzbqhcwtn (Bld) [Mass/Vol]12.1 g/dLLow13.0-17.0[facility] on above:Order Comment: Specimen Type: BLOOD SPECIMENOrdering Facility: [facility] Address:[address] [place], [place] [address]Performed By: #### 81539-5 ####[facility] LABIA [id number] [place], [place] [address]Sstejttd granulocytes (Bld) [#/Vol]10*3/uLNormal<0.10 [facility] on above:Order Comment: Specimen Type: BLOOD SPECIMENOrdering Facility: [facility] Address:[address] [place], [place] [address]Performed By: #### 04675-7 ####[facility] LABCLIA [id number] [place], [place] [address]Ihgjlczy granulocytes/100 WBC (Bld)0.3 %NormalTwin City Hospital on above: Order Comment: Specimen Type: BLOOD SPECIMENOrdering Facility: [facility] Address:[address] [place], [place] [address]Performed By: #### 86031- 8 ####[facility] LABCLIA [id number] [place], [place] [address]Mcjydxricyf (Bld) [#/Vol]2.32 10*3/uLNormal1.00-4.00 [facility] on above:Order Comment: Specimen Type: BLOOD SPECIMENOrdering Facility: [facility] Address:[address] [place], [place] [address]Performed By: #### 77699-5 ####[facility] LABIA [id number] [place], [place] [address]Zbubfijlcqn/100 WBC (Bld)30.8 %NormalTwin City Hospital on above:Order Comment: Specimen Type: BLOOD SPECIMENOrdering Facility: [facility] Address:[address] [place], [place] [address]Performed By: #### 58937-2 ####[facility] LABIA [id number] [place], [place] [address]PHN (RBC) [Entitic mass]29.3 iaXfwoxe70.0-34.0[facility] on above:Order Comment: Specimen Type: BLOOD SPECIMENOrdering Facility: [facility] Address:[address] [place], [place] [address]Performed By: #### 11127-1 ####[facility] LABCLIA [id number] [place], [place] [address]PDIB (RBC) [Mass/Vol]33.6 g/lYVxtyml06.5-36.0[facility] on above: Order Comment: Specimen Type: BLOOD SPECIMENOrdering Facility: [facility] Address:[address] [place], [place] [address]Performed By: #### 56781- 8 ####[facility] LABCLIA [id number] [place], [place] [address]WSH (RBC) [Entitic vol]87.2 kHOazuvq06.0-100.0[facility] on above:Order Comment: Specimen Type: BLOOD SPECIMENOrdering Facility: [facility] Address:[address] [place], [place] [address]Performed By: #### 42385-4 ####[facility] LABCLIA [id number] [place], [place] [address]Bvhcezqks (Bld) [#/Vol]0.63 10*3/uLNormal<0.87[facility] on above:Order Comment: Specimen Type: BLOOD SPECIMENOrdering Facility: [facility] Address:[address] [place], [place] [address]Performed By: #### 74943- 8 ####[facility] LABCLIA [id number] [place], [place] [address]Lnadqobuu/100 WBC (Bld)8.4 %NormalTwin City Hospital on above:Order Comment: Specimen Type: BLOOD SPECIMENOrdering Facility: [facility] Address:[address] [place], [place] [address]Performed By: #### 32888-1 ####[facility] LABCLIA [id number] [place], [place] [address]Whsxlwkdbyl (Bld) [#/Vol]4.20 10*3/uLNormal1.45-7.50[facility] on above:Order Comment: Specimen Type: BLOOD SPECIMENOrdering Facility: [facility] Address:[address] [place], [place] [address]Performed By: #### 03331-8 ####[facility] LABCLIA [id number] [place], [place] [address]Usupebvcfvd/100 WBC (Bld)55.6 %NormalTwin City Hospital on above:Order Comment: Specimen Type: BLOOD SPECIMENOrdering Facility: [facility] Address:[address] [place], [place] [address]Performed By: #### 54080-7 ####[facility] LABCLIA [id number] [place], [place] [address]Jcmtxealz RBC (Bld) [#/Vol] 10*3/uLNormal<0.01[facility] on above:Order Comment: Specimen Type: BLOOD SPECIMENOrdering Facility: [facility] Address:[address] [place], [place] [address]Performed By: #### 35899-9 ####[facility] LABIA [id number] [place], [place] [address]Mugqgqgvs RBC/100 WBC (Bld) [Ratio]0.0 /100 WBCNormal [facility] on above:Order Comment: Specimen Type: BLOOD SPECIMENOrdering Facility: [facility] Address:[address] [place], [place] [address]Performed By: #### 92803-0 ####[facility] LABIA [id number] [place], [place] [address]Gnqwxndf mean volume (Bld) [Entitic vol]9.7 fLNormal9.0-12.7[facility] on above:Order Comment: Specimen Type: BLOOD SPECIMENOrdering Facility: [facility] Address:[address] [place] [address] Performed By: #### 78124-0 ####[facility] LABIA [id number] [place], [place] [address]Mwxzwweyq (Bld) [#/Vol]255 10*3/pXUmpbnv591-772AfwejctqyTwin City Hospital on above:Order Comment: Specimen Type: BLOOD SPECIMENOrdering Facility: [facility] Address:[address] [place], [place] [address]Performed By: #### 81254-5 ####[facility] LABCLIA [id number] [place], [place] [address]LMF (Bld) [#/Vol]4.13 10*6/uLLow4.20-6.00[facility] on above:Order Comment: Specimen Type: BLOOD SPECIMENOrdering Facility: [facility] Address:[address] [place], [place] [address]Performed By: #### 82547-2 ####[facility] LABCLIA [id number] [place], [place] [address]UZG (Bld) [#/Vol]7.54 10*3/uL Normal3.70-11.00[facility] on above:Order Comment: Specimen Type: BLOOD SPECIMENOrdering Facility: [facility] Address:[address] [place], [place] [address]Performed By: #### 06428-4 ####[facility] LABCLIA [id number] [place], [place] [address]GMG CBC W AUTO DIFF BLDon 47-67-8253Zubfokzft/100 WBC (Bld)0.7 %NOMS [facility] HospitalF BASOPHILS # BLD AUTO0.05NINFNOSSM [facility] DIFFERENTIAL METHOD BLDAutoNOMS [facility] HospitalF EOSINOPHIL # BLD AUTO0.32NINFNOUniversity Health Truman Medical CenterF LYMPHOCYTES # BLD AUTO2.32NOUniversity Health Truman Medical CenterF MONOCYTES # BLD AUTO 0.63NINFNOUniversity Health Truman Medical CenterF NEUTROPHILS # BLD AUTO4.2NOMS [facility] HospitalF NRBC # BLD AUTO<0.01NINFTexas County Memorial Hospital NRBC/100 WBC BLD-RTO0/100 WBCNOCox [place]wn [facility] PLATELET # BLD [id number] HealthcareCCF PMV BLD AUTO9.7 fL9.0 - 12.7 fLSaint Luke[facility] Hospital–Barry RoadCCF WBC # BLD AUTO7.54NOCox Walnut LawnEosinophils/100 WBC (Bld)4.2 % [facility]–Barry RoadErythrocyte distribution width (RBC) [Ratio]14.6 %11.5 - 15.0 % [facility]ry RoadHematocrit (Bld) [Volume fraction]36 %Low39.0 - 51.0 %[facility]ry RoadHemoglobin (Bld) [Mass/Vol]12.1 g/dLLow13.0 - 17.0 g/dLSaint Luke's [facility] Hospital–Barry Road IMM GRANULOCYTES # BLD AUTO<0.03NINFJefferson Memorial Hospital GRANULOCYTES/LEUK NFR BLD AUTO0.3 %[facility]Barry RoadInterpretation and review of laboratory resultsAbnormal [facility]–Barry RoadLymphocytes/100 WBC (Bld)30.8 %[facility] CenterH (RBC) [Entitic mass]29.3 pg26.0 - 34.0 pgRusk Rehabilitation CenterHC (RBC) [Mass/Vol]33.6 g/dL30.5 - 36.0 g/dLRusk Rehabilitation CenterV (RBC) [Entitic vol]87.2 fL80.0 - 100.0 fLSaint Luke's North Hospital–Barry RoadMonocytes/100 WBC (Bld)8.4 %[facility]ry RoadNeutrophils/100 WBC (Bld) 55.6 %[facility]–Barry RoadRBC (Bld) [#/Vol]4.13 10*6/uLLow4.20 - 6.00 m/uLSaint Luke's North Hospital–Barry RoadSpecimen Type: BLOOD SPECIMEN Ordering Facility: [facility] Address: [address] [place] [address] Original Ordering Provider: LO MOREIRACT HealthcareCNOVon [id number] Randolph HealthCNPNon [id number] Elizabeth HospitalComprehensive metabolic 2000 panelon [id number] [Mass/Vol]4.3 g/dLNormal3.9-4.9ClevelFormerly Mercy Hospital SouthComment on above:Order Comment: Specimen Type: BLOOD SPECIMENOrdering Facility: [facility] Address:[address] [place], [place] [address]Performed By: #### 48626- 8 ####[facility]ITALMARIBEL [facility] LABCLIA [id number] LLOYD COTTONDIGN[facility] MEDICAL CENTERTESSANORTH [place], [place] [address]FFQ [Catalytic activity/Vol]62 U/ARugwux25-642ParnjakjcTwin City Hospital on above:Order Comment: Specimen Type: BLOOD SPECIMENOrdering Facility: [facility] Address:[address] [place], [place] [address]Performed By: #### 09106-9 ####[facility] LABCLIA [id number] [place]EN[place], [place] [address]BJI [Catalytic activity/Vol]17 U/WExlbwj89-53TvexveugvTwin City Hospital on above:Order Comment: Specimen Type: BLOOD SPECIMENOrdering Facility: [facility] Address:[address] [place], [place] [address]Performed By: #### 92021- 8 ####[facility] LABCLIA [id number] [facility] JEROME [place], [place] [address]Edyvb gap [Moles/Vol]11 mmol/LNormal8-15[facility] on above:Order Comment: Specimen Type: BLOOD SPECIMENOrdering Facility: [facility] Address:[address] [place], [place] [address]Performed By: #### 06053-3 ####[facility] LABCLIA [id number] LLOYD CANORENEDIGNITY HEALTH ST[facility] JO[facility] WEST[facility] MEDICAL CENTERTANYABIGELOW, [place] [address]WTS [Catalytic activity/Vol]14 U/EVzjhnb27-10AuhbjzbymTwin City Hospital on above:Order Comment: Specimen Type: BLOOD SPECIMENOrdering Facility: [facility] Address:[address] [place], [place] [address]Performed By: #### 93366-4 ####[facility] LABCLIA [id number] ERNIE JEROMERENEDIGNITY HEALTH ST[facility] WEST[facility] [place] [address] Bilirubin [Mass/Vol]0.3 mg/dLNormal0.2-1.3CU[facility] on above:Order Comment: Specimen Type: BLOOD SPECIMENOrdering Facility: [facility] Address:[address] [place], [place] [address]Performed By: #### 41350-0 ####[facility] LABCLIA [id number] LLOYD BANKSDIGNITY HEALTH ST[facility] MEDICAL CENTERTESSANORTH [place], [place] [address]Zaabvfv [Mass/Vol]9.4 mg/dLNormal8.5-10.2CUpper [facility] on above:Order Comment: Specimen Type: BLOOD SPECIMENOrdering Facility: [facility] Address:[address] [place], [place] [address]Performed By: #### 32628-3 ####[facility] LABCLIA [id number] ERNIEST. HELENS HOSPITAL AND HEALTH CENTERRENEDIGNITY HEALTH ST[facility] WEST[facility] MEDICAL CENTERTANYABIGELOW, [place] [address]Evrybodw [Moles/Vol]94 mmol/CFhj76-679TfhefhrmrTwin City Hospital on above:Order Comment: Specimen Type: BLOOD SPECIMENOrdering Facility: [facility] Address:[address] [place], [place] [address]Performed By: #### 63858- 8 ####[facility] LABCLIA [id number] ERNIESAN [facility] YURYCENTR[place], [place] [address]MU1 [Moles/Vol]30 mmol/KHywqxa03-32ZrzxbdvdwTwin City Hospital on above:Order Comment: Specimen Type: BLOOD SPECIMENOrdering Facility: [facility] Address:[address] [place], [place] [address]Performed By: #### 65838-1 ####[facility] LABCLIA [id number] ERNIE JEROMERENEDIGNITY HEALTH ST. [facility] MEDICAL CENTERTESSANORTH [place], [place] [address]Hkltgehptc [Mass/Vol]0.81 mg/dL Normal0.73-1.22[facility] on above:Order Comment: Specimen Type: BLOOD SPECIMENOrdering Facility: [facility] Address:[address] [place], [place] [address]Performed By: #### 87444-5 ####[facility] LABCLIA [id number] ERNIESAN [facility] YURYST. VINCENT'S EASTAleydaNORTH [place], [place] [address]Ykmvcfsxwo and Glomerular filtration rate.predicted panel (S/P/Bld)96 mL/min/1.73m???Normal>=60[facility] on above:Order Comment: Specimen Type: BLOOD SPECIMENOrdering Facility: [facility] Address:[address] [place] [address]Jgrthh Comment: Estimated Glomerular Filtration Rate (eGFR) is calculated using the 2020 CKD-EPI creatinine equation. This equation utilizes serum creatinine, sex, and age as parameters. The creatinine assay has traceable calibration to isotope dilution- mass spectrometry. Refer to KDIGO guidelines for clinical interpretation. In patients with unstable renal function, e.g. those with acute kidney injury, the eGFR may not accurately reflect actual GFR.Performed By: #### 88851-1 ####[facility] LABCLIA [id number] [place], [place] [address]Xnrnoxh [Mass/Vol]135 mg/qNZcbu93-62UsvdezoyaTwin City Hospital on above:Order Comment: Specimen Type: BLOOD SPECIMENOrdering Facility: [facility] Address:[address] [place] [address]Avjkii Comment: The [place] Diabetes Association (ADA) provides guidance for cutoff values for fasting glucose and random glucose. The ADA defines fasting as no caloric intake for at least 8 hours. Fasting plasma glucose results between 100 to 125 mg/dL indicate increased risk for diabetes (prediab etes).Fasting plasma glucose results greater than or equal to 126 mg/dL meet the criteria for diagnosis of diabetes. In the absence of unequivocal hyperglycemia, results should be confirmed by repeattesting. In a patient with classic symptoms of hyperglycemia or hyperglycemic crisis, random plasmaglucose results greater than or equal to 200 mg/dL meet the criteria for diagnosis of diabetes.Reference: Standards of Medical Care in Diabetes 2016, [place] Diabetes Association. Diabetes Care. 2016.39(Suppl 1).Performed By: #### 81030-1 ####[facility] LABCLIA [id number] [place], [place] [address]Lmulmkliq [Moles/Vol]3.1 mmol/LLow3.7-5.1CUpper [facility] on above:Order Comment: Specimen Type: BLOOD SPECIMENOrdering Facility: [facility] Address:[address] [place], [place] [address]Performed By: #### 88166-2 ####[facility] LABCLIA [id number] [place], [place] [address]Snuvoro [Mass/Vol]6.3 g/dL Normal6.3-8.0[facility] on above:Order Comment: Specimen Type: BLOOD SPECIMENOrdering Facility: [facility] Address:[address] [place], [place] [address]Performed By: #### 19952-1 ####[facility] LABCLIA [id number] [place] [address] Sodium [Moles/Vol]135 mmol/OVrn935-031BcbyiqsgjTwin City Hospital on above:Order Comment: Specimen Type: BLOOD SPECIMENOrdering Facility: [facility] Address:[address] [place], [place] [address]Performed By: #### 87005-1 ####[facility] LABCLIA [id number] [place], [place] [address]Stjw nitrogen [Mass/Vol]20 mg/dLNormal9-24[facility] on above:Order Comment: Specimen Type: BLOOD SPECIMENOrdering Facility: [facility] Address:[address] [place], [place] [address]Performed By: #### 81613-2 ####[facility] LABCLIA [id number] [place], [place] [address]Fxgoku SerPl-mCncon 71-34-7528Fpmenbqk [Mass/Vol]2.3 ug/dLLow4.8-19.5CUpper [facility] on above:Order Comment: Specimen Type: BLOOD SPECIMENOrdering Facility: [facility] Address:[address] [place], [place] [address]Result Comment: Provided reference range is from 6-10 AM sample collection time.Cortisol Reference Range: 6-10 AM = 4.8-19.5 ug/dL, 4-8 PM = 2.5-11.9 ug/dL Performed By: #### 3016-3, 2142-08 ####[facility] LABCLIA [id number] [place] [id number] [facility] SerPl-aCncon 16-68-6899IEL Qn0.921 m[IU]/LNormal0.270-4.200St. Elizabeth HospitalCommymichigan medical center [facility] on above:Order Comment: Specimen Type: BLOOD SPECIMENOrdering Facility: [facility] Address:[address] [place], [place] [address]Performed By: #### 3016-3, 2142-08 ####[facility] LABCLIA [id number] [address] No Panel Informationon 09-47-8001FqiiiRobert King NP 04/23/2024 7:43 PM L Inj/Asp: L subacromial bursa on 04/23/2024 3:10 PM Indications: pain Details: 20 G needle, posterior approach Medications: 40 mg methylPREDNISolone acetate 40 MG/ML Outcome: tolerated well, no immediate complications Site cleaned with isopropyl alcohol Procedure, treatment alternatives, risks and benefits explained, specific risks discussed. Consent was given by the patient. [facility] Natacha King NP 04/23/2024 7:43 PM L Inj/Asp: R subacromial bursa on 04/23/2024 3:10 PM Indications: pain Details: 20 G needle, posterior approach Medications: 40 mg methylPREDNISolone acetate 40 MG/ML Outcome: tolerated well, no immediate complications Site cleaned with isopropyl alcohol. Procedure, treatment alternatives, risks and benefits explained, specific risks discussed. Consent was given by the patient. [facility] CenterCNCNPATEDon 84-78-0023BDPNFKTUFUqlivtRbgfaernk Clinic ClevelandCNOVon 26-95-6191YFWFKcbewcWnmanbimm Clinic ClevelandCNOVSPon 17-78-8251IQRVDEYnpjcdXqiqgrxxi Clinic Clegalion hospitalCORTISOL, SERUMon 04-04-2024 Cortisol [Mass/Vol]11.4 ug/dL4.8 - 19.5 ug/dLBlanchard Valley Health System [facility] on above: Provided reference range is from 6-10 AM sample collection time. Cortisol Reference Range: 6-10 AM = 4.8-19.5 ug/dL, 4-8 PM = 2.5-11.9 ug/dL No Panel Informationon 18-13-1546Pshbiptjstgggu and review of laboratory results NormalGalion Community HospitalTHYROID STIMULATING HORMONEon 04-04-2024 TSH Qn1.780 m[IU]/LCNorwalk Memorial HospitalCB W Auto Differential panel (Bld)on 38-71-2348Koxfnkzwe (Bld) [#/Vol]0.06 10*3/uLCleveland Clinic Marymount HospitalDifferential cell count method Nom (Bld)AutoCleveland ClinicEosinophils (Bld) [#/Vol]1.79 10*3/uLHighNIBlanchard Valley Health System Bluffton HospitalErythrocyte distribution width (RBC) [Ratio]16.0 %High11.5 - 15.0 %[facility] Medical Centerture granulocytes (Bld) [#/Vol]0.03 10*3/[facility] Medical CenterImmature granulocytes/100 WBC (Bld)0.3 %[facility], Edwin ShawLymphocytes (Bld) [#/Vol]2.08 10*3/[facility] Health SystemMCV (RBC) [Entitic vol]87.0 fL80.0 - 100.0 fLClevelfirsthealth montgomery memorial hospital ClinicMonocytes (Bld) [#/Vol]0.55 10*3/uL NINFCNorwalk Memorial HospitalNeutrophils (Bld) [#/Vol]4.26 10*3/[facility] Nucleated RBC (Bld) [#/Vol]NINWooster Community HospitalNucleated RBC/100 WBC (Bld) [Ratio]0.0 %/100 WBCSelect Medical Cleveland Clinic Rehabilitation Hospital, Edwin ShawPlatelet mean volume (Bld) [Entitic vol]10.5 fL9.0 - 12.7 fLCmartins ferry hospital ClinicPlatelets (Bld) [#/Vol]259 10*3/uLSelect Medical Cleveland Clinic Rehabilitation Hospital, Edwin ShawWBC (Bld) [#/Vol]8.77 10*3/[facility] Health SystemBasophils (Bld) [#/Vol]0.06 10*3/uLNormal<0.11CUpper [facility] on above:Order Comment: Specimen Type: BLOOD SPECIMENOrdering Facility: [facility] Address:[address] [place], [place] [address]Performed By: #### 23984-5 ####[facility] LABCLIA [id number] [place], [place] [address]Iwugnrcne/100 WBC (Bld)0.7 %NormalTwin City Hospital on above:Order Comment: Specimen Type: BLOOD SPECIMENOrdering Facility: [facility] Address:[address] [place], [place] [address]Performed By: #### 27697-9 ####[facility] LABCLIA [id number] [place], [place] [address]Hmgcuvlstgdk cell count method Nom (Bld)AutoNormalCUpper Valley Medical Center on above:Order Comment: Specimen Type: BLOOD SPECIMENOrdering Facility: [facility] Address:[address] [place], [place] [address]Performed By: #### 30250-8 ####[facility] LABCLIA [id number] [place], [place] [address]Sqfizviurbe (Bld) [#/Vol]1.79 10*3/uLHigh<0.46[facility] on above:Order Comment: Specimen Type: BLOOD SPECIMENOrdering Facility: [facility] Address:[address] [place], [place] [address]Performed By: #### 81460-0 ####[facility] LABCLIA [id number] [place], [place] [address]Mtfucqmyjyr/100 WBC (Bld)20.4 %NormalTwin City Hospital on above:Order Comment: Specimen Type: BLOOD SPECIMENOrdering Facility: [facility] Address:[address] [place], [place] [address]Performed By: #### 24929-9 ####[facility] LABCLIA [id number] [place], [place] [address]Ifbfsgbrqxn distribution width (RBC) [Ratio]16.0 %High 11.5-15.0[facility] on above:Order Comment: Specimen Type: BLOOD SPECIMENOrdering Facility: [facility] Address:[address] [place], [place] [address]Performed By: #### 18766-0 ####[facility] LABIA [id number] [place] [address] Hematocrit (Bld) [Volume fraction]35.4 %Low39.0-51.0[facility] Comment on above:Order Comment: Specimen Type: BLOOD SPECIMENOrdering Facility: [facility] Address:[address] [place] [address] Performed By: #### 29083-1 ####[facility] LABIA [id number] [place], [place] [address]Dbdjamagvu (Bld) [Mass/Vol]11.9 g/dLLow13.0-17.0[facility] on above:Order Comment: Specimen Type: BLOOD SPECIMENOrdering Facility: [facility] Address:[address] [place], [place] [address]Performed By: #### 80410-9 ####[facility] LABIA [id number] [place], [place] [address]Hyfejqgc granulocytes (Bld) [#/Vol]0.03 10*3/uLNormal <0.10[facility] on above:Order Comment: Specimen Type: BLOOD SPECIMENOrdering Facility: [facility] Address:[address] [place], [place] [address]Performed By: #### 14619-7 ####[facility] LABIA [id number] [place], [place] [address]Zxlsjpza granulocytes/100 WBC (Bld)0.3 %NormalTwin City Hospital on above: Order Comment: Specimen Type: BLOOD SPECIMENOrdering Facility: [facility] Address:[address] [place], [place] [address]Performed By: #### 75066- 8 ####[facility] LABCLIA [id number] [place], [place] [address]Ddqnmixnryl (Bld) [#/Vol]2.08 10*3/uLNormal1.00-4.00 [facility] on above:Order Comment: Specimen Type: BLOOD SPECIMENOrdering Facility: [facility] Address:[address] [place], [place] [address]Performed By: #### 12522-0 ####[facility] LABIA [id number] [place], [place] [address]Kwwanftmztz/100 WBC (Bld)23.7 %NormalTwin City Hospital on above:Order Comment: Specimen Type: BLOOD SPECIMENOrdering Facility: [facility] Address:[address] [place], [place] [address]Performed By: #### 51098-7 ####[facility] LABIA [id number] [place], [place] [address]YZE (RBC) [Entitic mass]29.2 roNmepdk79.0-34.0[facility] on above:Order Comment: Specimen Type: BLOOD SPECIMENOrdering Facility: [facility] Address:[address] [place], [place] [address]Performed By: #### 56307-7 ####[facility] LABIA [id number] [place], [place] [address]UFAS (RBC) [Mass/Vol]33.6 g/lZSmtkjb41.5-36.0[facility] on above: Order Comment: Specimen Type: BLOOD SPECIMENOrdering Facility: [facility] Address:[address] [place], [place] [address]Performed By: #### 53741- 8 ####[facility] LABIA [id number] [place], [place] [address]ZFP (RBC) [Entitic vol]87.0 pOOamzzv29.0-100.0[facility] on above:Order Comment: Specimen Type: BLOOD SPECIMENOrdering Facility: [facility] Address:[address] [place], [place] [address]Performed By: #### 99608-2 ####[facility] LABCLIA [id number] [place], [place] [address]Jqtvywaqy (Bld) [#/Vol]0.55 10*3/uLNormal<0.87[facility] on above:Order Comment: Specimen Type: BLOOD SPECIMENOrdering Facility: [facility] Address:[address] [place], [place] [address]Performed By: #### 60070- 8 ####[facility] LABCLIA [id number] [place], [place] [address]Kztwswlqa/100 WBC (Bld)6.3 %NormalTwin City Hospital on above:Order Comment: Specimen Type: BLOOD SPECIMENOrdering Facility: [facility] Address:[address] [place], [place] [address]Performed By: #### 03156-6 ####[facility] LABCLIA [id number] [place], [place] [address]Hbrxauquqgr (Bld) [#/Vol]4.26 10*3/uLNormal1.45-7.50[facility] on above:Order Comment: Specimen Type: BLOOD SPECIMENOrdering Facility: [facility] Address:[address] [place], [place] [address]Performed By: #### 61613-0 ####[facility] LABCLIA [id number] [place], [place] [address]Nzarhslvovq/100 WBC (Bld)48.6 %NormalTwin City Hospital on above:Order Comment: Specimen Type: BLOOD SPECIMENOrdering Facility: [facility] Address:[address] [place], [place] [address]Performed By: #### 39261-9 ####[facility] LABCLIA [id number] [place], [place] [address]Vcndenfwv RBC (Bld) [#/Vol] 10*3/uLNormal<0.01[facility] on above:Order Comment: Specimen Type: BLOOD SPECIMENOrdering Facility: [facility] Address:[address] [place], [place] [address]Performed By: #### 59566-6 ####[facility] LABCLIA [id number] [place], [place] [address]Eqvzchxrh RBC/100 WBC (Bld) [Ratio]0.0 /100 WBCNormal [facility] on above:Order Comment: Specimen Type: BLOOD SPECIMENOrdering Facility: [facility] Address:[address] [place], [place] [address]Performed By: #### 02021-6 ####[facility] LABIA [id number] [place], [place] [address]Xdpnzxcw mean volume (Bld) [Entitic vol]10.5 fLNormal9.0-12.7CU[facility] on above:Order Comment: Specimen Type: BLOOD SPECIMENOrdering Facility: [facility] Address:[address] [place] [address] Performed By: #### 82991-5 ####[facility] LABIA [id number] [place], [place] [address]Rhsavjmcv (Bld) [#/Vol]259 10*3/cQKcnbce783-500FutlilutsTwin City Hospital on above:Order Comment: Specimen Type: BLOOD SPECIMENOrdering Facility: [facility] Address:[address] [place], [place] [address]Performed By: #### 88121-7 ####[facility] LABCLIA [id number] [place], [place] [address]VHK (Bld) [#/Vol]4.07 10*6/uLLow4.20-6.00[facility] on above:Order Comment: Specimen Type: BLOOD SPECIMENOrdering Facility: [facility] Address:[address] [place], [place] [address]Performed By: #### 89680-1 ####[facility] LABCLIA [id number] [place], [place] [address]XER (Bld) [#/Vol]8.77 10*3/uL Normal3.70-11.00[facility] on above:Order Comment: Specimen Type: BLOOD SPECIMENOrdering Facility: [facility] Address:[address] [place], [place] [address]Performed By: #### 68651-2 ####[facility] LABCLIA [id number] [place], [place] [address]WVX CBC W AUTO DIFF BLDon 76-13-7929VBH BASOPHILS # BLD AUTO0.06NIHumboldt General Hospital DIFFERENTIAL METHOD BLDAutoNOMBoone Hospital Center EOSINOPHIL # BLD AUTO1.79HighNIHumboldt General Hospital LYMPHOCYTES # BLD AUTO2.08 [facility] MONOCYTES # BLD AUTO0.55NIHumboldt General Hospital NEUTROPHILS # BLD AUTO4.26[facility] NRBC # BLD AUTO<0.01NIHumboldt General Hospital NRBC/100 WBC BLD-RTO0/100 WBCTexas County Memorial Hospital PLATELET # BLD [id number] [facility] PMV BLD AUTO10.5 fL9.0 - 12.7 fLHeartland Behavioral Health ServicesF WBC # BLD AUTO 8.77NOCox Walnut LawnErythrocyte distribution width (RBC) [Ratio]16 %High11.5 - 15.0 %NOMS HealthcareIM GRANULOCYTES # BLD AUTO0.03NINFJefferson Memorial Hospital GRANULOCYTES/LEUK NFR BLD AUTO0.3 %NOMS [facility] Hill[facility] HospitalMCV (RBC) [Entitic vol]87 fL 80.0 - 100.0 fLUTAH [facility] HealthcareSpecimen Type: BLOOD SPECIMEN Ordering Facility: [facility] Address: [address] [place] [id number] Original Ordering Provider: LO Talbert 16-91-9098Dvqnatcc [Mass/Vol]11.4 ug/dLNormal4.8-19.5CTriHealth [facility]ull[facility] Comment on above:Order Comment: Specimen Type: BLOOD SPECIMENOrdering Facility: [facility] Address:[address] [place], [place] [address]Result Comment: Provided reference range is from 6-10 AM sample collection time.Cortisol Reference Range: 6-10 AM = 4.8-19.5 ug/dL, 4-8 PM = 2.5-11.9 ug/dL Performed By: #### 3016-3, 2143-6 ####[facility] LABCLIA [id number] [place] [address] [place] GLUCOSE, BLOOD (POC)on 99-28-4575Stpmtwb [Mass/Vol]103 mg/bNTchuslms45 - 99 mg/dLRiverview Health Institutement on above:Location:[facility], [address] [place] [address] , [place], [place], [facility] The Accu-Chek Inform II glucose meter has not been approved for testing on patients receiving intensive medical intervention or therapy and results from this point of care glucose test should not be used for patient management decisions in these cases. Inaccurate results may also occur from other interfering factors, such as N-acetylcysteine (blood concentrations of greater than 5mg/dL), galactose, extremes of hematocrit (<10 or >65), or high doses of ascorbic acid (vitamin C) greater than 3mg/dL. Consider alternate testing mechanisms (e.g. core lab, blood gas instrument) in the above situations. Interpretation and review of laboratory resultsAbnormalCParkview Health Bryan HospitalHbA1c (Bld)on 00-83-5978Gktbexf glucose Estimated from glycated hemoglobin (Bld) [Mass/Vol]114 mg/dLBlanchard Valley Health System [facility] on above:eAG: (Estimated average glucose) is a calculated value from HgbA1c and is telephone claims representative of the average blood glucose level in the last 2-3 month period. HbA1c (Bld) [Mass fraction]5.6 %4.3 - 5.6 %[facility] on above: [place] Diabetes Association guidelines indicate that patients with HgbA1c in the range 5.7-6.4% are at increased risk for development of diabetes, and intervention by lifestyle modification may be beneficial. HgbA1c greater or equal to 6.5% is considered diagnostic of diabetes.[facility] glucose Estimated from glycated hemoglobin (Bld) [Mass/Vol]114 mg/dLNormal [facility] on above:Order Comment: Specimen Type: BLOOD SPECIMENOrdering Facility: [facility] Address:[address] [place], [place] [address]Result Comment: eAG: (Estimated average glucose) is a calculated value from HgbA1c and is telephone claims representative of the average blood glucose level in the last 2-3 month period.Performed By: #### 03125-0 ####[facility] LABCLIA [id number] [address] STATES OF SSWDXPLLdG5k (Bld) [Mass fraction]5.6 %Normal4.3-5.6 [facility] on above:Order Comment: Specimen Type: BLOOD SPECIMENOrdering Facility: [facility] Address:[address] [place], [place] [address]Result Comment: Citizen Of [place] Diabetes Association guidelines indicate that patients with HgbA1c in the range 5.7-6.4% are at increased risk for development of diabetes, and intervention by lifestyle modification may be beneficial. HgbA1c greater or equal to 6.5% is considered diagnostic of diabetes.Performed By: #### [id number] ####[facility] LABCLIA [id number] [place] [address] [place] Laboratory - Hematology and Cell countson [id number]/100 WBC (Bld)0.7 % [facility] HealthcareEosinophils/100 WBC (Bld)20.4 %[facility] HealthcareHematocrit (Bld) [Volume fraction]35.4 %Low39.0 - 51.0 %[facility] HealthcareHemoglobin (Bld) [Mass/Vol]11.9 g/dLLow13.0 - 17.0 g/dLSaint [facility] RoadLymphocytes/100 WBC (Bld) 23.7 %[facility] (RBC) [Entitic mass]29.2 pg26.0 - 34.0 pgRusk Rehabilitation CenterHC (RBC) [Mass/Vol]33.6 g/dL30.5 - 36.0 g/dLSaint [facility] Monocytes/100 WBC (Bld)6.3 %[facility] RoadNeutrophils/100 WBC (Bld)48.6 %[facility] RoadRBC (Bld) [#/Vol]4.07 10*6/uLLow4.20 - 6.00 m/uLJefferson Memorial Hospital PET/CT SKULL-THIGH SUBQon 04-03-2024* * *Final Report* * * DATE OF EXAM: Apr 03 2024 11:45AM NRN 0063 - NM PET/CT SKULL-THIGH SUBQ / PROCEDURE REASON: Malignant neoplasm of unspecified part of unspecified bronchus or lung (HCC) * * * * Physician Interpretation * * * * RESULT: EXAMINATION: BODY FDG PET-CT CLINICAL HISTORY: Left lung squamous cell carcinoma. Re-evaluate burden of disease after systemic therapy and for treatment planning for potential radiation therapy. EXAM CATEGORY: Subsequent treatment strategy. TECHNIQUE: Radiopharmaceutical was administered intravenously followed by PET imaging from the eyes to thighs. Free breathing, low dose CT of the same body region was acquired without IV contrast for attenuation correction and anatomic localization. Unenhanced imaging is limited for the evaluation of some pathology and the acquired CT was not designed to produce diagnostic CT scan quality. Physiologic/non-pathologic uptake in some body regions could confound or obscure some pathology. * CT Dose-Length Product (DLP): 265 mGy*cm * CT Dose Reduction Employed: Yes * Blood glucose: 103 mg/dL * Injection site: Left Hand * Injected activity: 8.3 mCi * Uptake Time: 48 minutes * Radiopharmaceutical: J42-Fvlpuzpjhbqfrjdnkz (FDG) COMPARISON: FDG PET/CT 10/21/2023 CORRELATION: CT chest, abdomen pelvis of 01/25/2024 RESULT: REFERENCES: FDG uptake is used as a surrogate marker for glucose metabolism. All reported standardized uptake values represent maximum SUV (SUVmax) per body weight, unless otherwise specified. SUV reference values, as follows: * Blood Pool (Descending Aorta): SUVmax 2.7 * Background Liver: SUVmax 3.2; Localizer Images: No additional findings. HEAD AND NECK: Head: No radiotracer avid lesion or mass effect in the imaged intracranial compartment. Aerodigestive Tract: No radiotracer avid lesion. Lymph Nodes: No radiotracer avid lymphadenopathy. Neck Soft Tissues: No radiotracer avid thyroid nodule. CHEST: Lungs and Pleura: Decreased radiotracer avid left lower lobe superior segment mass, 1.1 x 2.3 cm, SUV 2.7, prior 4.2 x 4.4 cm previously 22.9 Lymph Nodes: No radiotracer avid lymphadenopathy. Mediastinum: No radiotracer avid mass. Cardiovascular: Blood pool activity. No pericardial effusion Chest Wall: No radiotracer avid soft tissue lesion. ABDOMEN AND PELVIS: Hepatobiliary: No radiotracer avid lesion. Spleen: No radiotracer avid lesion. No splenomegaly. Pancreas: No radiotracer avid lesion. Adrenals: No radiotracer avid nodule. Urinary Tract: Physiologic radiotracer excretion in the renal collecting systems and urinary bladder. No hydronephrosis. Non-obstructing nephrolithiasis. GI Tract: No radiotracer avid lesion. No bowel dilation. Peritoneum: No radiotracer avid lesion. No ascites. Lymph Nodes: No radiotracer avid lymphadenopathy. Vasculature: Blood pool activity. Pelvic Organs: No radiotracer avid lesion. MUSCULOSKELETAL: Bones: No radiotracer avid lesion. Degenerative uptake in the spine. Soft Tissues: No radiotracer avid lesion. IMPRESSION: HEAD/NECK: * No FDG avid disease. CHEST: * Decreased FDG avid left lower lobe malignant mass, residual small opacity with mild uptake ABDOMEN/PELVIS: * No FDG avid disease. MUSCULOSKELETAL: * No FDG avid disease. Transcribe Date/Time: Apr 03 2024 1:44P Dictated by: USAMA PANIAGUA MD This examination was interpreted and the report reviewed and electronically signed by: USAMA PANIAGUA MD on Apr 03 2024 2:10PM EST Thank you for allowing us to participate in the care of your patient. Should there be any questions regarding this interpretation, please call [phone]. If you are unable to reach us at the number above, please feel free to contact [facility] at [phone]. [id number]^AGFA_IDC^SI^ACNCCFRadiology, Radiologist, - 04/03/2024 * * *Final Report* * * DATE OF EXAM: Apr 03 2024 11:45AM NRN 0063 - NM PET/CT SKULL-THIGH SUBQ / PROCEDURE REASON: Malignant neoplasm of unspecified part of unspecified bronchus or lung (HCC) * * * * Physician Interpretation * * * * RESULT: EXAMINATION: BODY FDG PET-CT CLINICAL HISTORY: Left lung squamous cell carcinoma. Re-evaluate burden of disease after systemic therapy and for treatment planning for potential radiation therapy. EXAM CATEGORY: Subsequent treatment strategy. TECHNIQUE: Radiopharmaceutical was administered intravenously followed by PET imaging from the eyes to thighs. Free breathing, low dose CT of the same body region was acquired without IV contrast for attenuation correction and anatomic localization. Unenhanced imaging is limited for the evaluation of some pathology and the acquired CT was not designed to produce diagnostic CT scan quality. Physiologic/non-pathologic uptake in some body regions could confound or obscure some pathology. * CT Dose-Length Product (DLP): 265 mGy*cm * CT Dose Reduction Employed: Yes * Blood glucose: 103 mg/dL * Injection site: Left Hand * Injected activity: 8.3 mCi * Uptake Time: 48 minutes * Radiopharmaceutical: W75-Nyxsuwcsjrexkxgjmx (FDG) COMPARISON: FDG PET/CT 10/21/2023 CORRELATION: CT chest, abdomen pelvis of 01/25/2024 RESULT: REFERENCES: FDG uptake is used as a surrogate marker for glucose metabolism. All reported standardized uptake values represent maximum SUV (SUVmax) per body weight, unless otherwise specified. SUV reference values, as follows: * Blood Pool (Descending Aorta): SUVmax 2.7 * Background Liver: SUVmax 3.2; Localizer Images: No additional findings. HEAD AND NECK: Head: No radiotracer avid lesion or mass effect in the imaged intracranial compartment. Aerodigestive Tract: No radiotracer avid lesion. Lymph Nodes: No radiotracer avid lymphadenopathy. Neck Soft Tissues: No radiotracer avid thyroid nodule. CHEST: Lungs and Pleura: Decreased radiotracer avid left lower lobe superior segment mass, 1.1 x 2.3 cm, SUV 2.7, prior 4.2 x 4.4 cm previously 22.9 Lymph Nodes: No radiotracer avid lymphadenopathy. Mediastinum: No radiotracer avid mass. Cardiovascular: Blood pool activity. No pericardial effusion Chest Wall: No radiotracer avid soft tissue lesion. ABDOMEN AND PELVIS: Hepatobiliary: No radiotracer avid lesion. Spleen: No radiotracer avid lesion. No splenomegaly. Pancreas: No radiotracer avid lesion. Adrenals: No radiotracer avid nodule. Urinary Tract: Physiologic radiotracer excretion in the renal collecting systems and urinary bladder. No hydronephrosis. Non-obstructing nephrolithiasis. GI Tract: No radiotracer avid lesion. No bowel dilation. Peritoneum: No radiotracer avid lesion. No ascites. Lymph Nodes: No radiotracer avid lymphadenopathy. Vasculature: Blood pool activity. Pelvic Organs: No radiotracer avid lesion. MUSCULOSKELETAL: Bones: No radiotracer avid lesion. Degenerative uptake in the spine. Soft Tissues: No radiotracer avid lesion. IMPRESSION: HEAD/NECK: * No FDG avid disease. CHEST: * Decreased FDG avid left lower lobe malignant mass, residual small opacity with mild uptake ABDOMEN/PELVIS: * No FDG avid disease. MUSCULOSKELETAL: * No FDG avid disease. Transcribe Date/Time: Apr 03 2024 1:44P Dictated by: USAMA PANIAGUA MD This examination was interpreted and the report reviewed and electronically signed by: USAMA PANIAGUA MD on Apr 03 2024 2:10PM EST Thank you for allowing us to participate in the care of your patient. Should there be any questions regarding this interpretation, please call [phone]. If you are unable to reach us at the number above, please feel free to contact [facility] eRadiology at [phone]. [id number]^AGFA_IDC^SI^ACN [facility] PET/CT SKULL-THIGH SUBQNormalCleveland [facility] Radiology Study observation (narrative)[facility] Panel Information Ordered By: [facility] Provider on [id number] Clinic Panel Informationon [id number] and review of laboratory resultsAbnoAurora St. [facility] CudahyPET+CT Guidance for localization of tumor of Skull base to mid-thigh-- W 18F-FDG Landy [id number]: HEAD/NECK: * No FDG avid disease. CHEST: * Decreased FDG avid left lower lobe malignant mass, residual small opacity with mild uptake ABDOMEN/PELVIS: * No FDG avid disease. MUSCULOSKELETAL: * No FDG avid disease. Transcribe Date/Time: Apr 03 2024 1:44P Dictated by: USAMA PANIAGUA MD This examination was interpreted and the report reviewed and electronically signed by: USAMA PANIAGUA MD on Apr 03 2024 2:10PM EST Thank you for allowing us to participate in the care of your patient. Should there be any questions regarding this interpretation, please call [phone]. If you are unable to reach us at the number above, please feel free to contact [facility] at [phone].DIVISION OF RADIOLOGY* * *Final Report* * * DATE OF EXAM: Apr 03 2024 11:45AM NRN 0063 - NM PET/CT SKULL-THIGH SUBQ / PROCEDURE REASON: Malignant neoplasm of unspecified part of unspecified bronchus or lung (HCC) * * * * Physician Interpretation * * * * RESULT: EXAMINATION: BODY FDG PET-CT CLINICAL HISTORY: Left lung squamous cell carcinoma. Re-evaluate burden of disease after systemic therapy and for treatment planning for potential radiation therapy. EXAM CATEGORY: Subsequent treatment strategy. TECHNIQUE: Radiopharmaceutical was administered intravenously followed by PET imaging from the eyes to thighs. Free breathing, low dose CT of the same body region was acquired without IV contrast for attenuation correction and anatomic localization. Unenhanced imaging is limited for the evaluation of some pathology and the acquired CT was not designed to produce diagnostic CT scan quality. Physiologic/non-pathologic uptake in some body regions could confound or obscure some pathology. * CT Dose-Length Product (DLP): 265 mGy*cm * CT Dose Reduction Employed: Yes * Blood glucose: 103 mg/dL * Injection site: Left Hand * Injected activity: 8.3 mCi * Uptake Time: 48 minutes * Radiopharmaceutical: L05-Tcsasxaniebotkogza (FDG) COMPARISON: FDG PET/CT 10/21/2023 CORRELATION: CT chest, abdomen pelvis of 01/25/2024 RESULT: REFERENCES: FDG uptake is used as a surrogate marker for glucose metabolism. All reported standardized uptake values represent maximum SUV (SUVmax) per body weight, unless otherwise specified. SUV reference values, as follows: * Blood Pool (Descending Aorta): SUVmax 2.7 * Background Liver: SUVmax 3.2; Localizer Images: No additional findings. HEAD AND NECK: Head: No radiotracer avid lesion or mass effect in the imaged intracranial compartment. Aerodigestive Tract: No radiotracer avid lesion. Lymph Nodes: No radiotracer avid lymphadenopathy. Neck Soft Tissues: No radiotracer avid thyroid nodule. CHEST: Lungs & Pleura: Decreased radiotracer avid left lower lobe superior segment mass, 1.1 x 2.3 cm, SUV 2.7, prior 4.2 x 4.4 cm previously 22.9 Lymph Nodes: No radiotracer avid lymphadenopathy. Mediastinum: No radiotracer avid mass. Cardiovascular: Blood pool activity. No pericardial effusion Chest Wall: No radiotracer avid soft tissue lesion. ABDOMEN AND PELVIS: Hepatobiliary: No radiotracer avid lesion. Spleen: No radiotracer avid lesion. No splenomegaly. Pancreas: No radiotracer avid lesion. Adrenals: No radiotracer avid nodule. Urinary Tract: Physiologic radiotracer excretion in the renal collecting systems and urinary bladder. No hydronephrosis. Non-obstructing nephrolithiasis. GI Tract: No radiotracer avid lesion. No bowel dilation. Peritoneum: No radiotracer avid lesion. No ascites. Lymph Nodes: No radiotracer avid lymphadenopathy. Vasculature: Blood pool activity. Pelvic Organs: No radiotracer avid lesion. MUSCULOSKELETAL: Bones: No radiotracer avid lesion. Degenerative uptake in the spine. Soft Tissues: No radiotracer avid lesion. DIVISION OF RADIOLOGYProvider, [facility] [employer] - 04/03/2024 * * *Final Report* * * DATE OF EXAM: Apr 03 2024 11:45AM NRN 0063 - NM PET/CT SKULL-THIGH SUBQ / PROCEDURE REASON: Malignant neoplasm of unspecified part of unspecified bronchus or lung (HCC) * * * * Physician Interpretation * * * * RESULT: EXAMINATION: BODY FDG PET-CT CLINICAL HISTORY: Left lung squamous cell carcinoma. Re-evaluate burden of disease after systemic therapy and for treatment planning for potential radiation therapy. EXAM CATEGORY: Subsequent treatment strategy. TECHNIQUE: Radiopharmaceutical was administered intravenously followed by PET imaging from the eyes to thighs. Free breathing, low dose CT of the same body region was acquired without IV contrast for attenuation correction and anatomic localization. Unenhanced imaging is limited for the evaluation of some pathology and the acquired CT was not designed to produce diagnostic CT scan quality. Physiologic/non-pathologic uptake in some body regions could confound or obscure some pathology. * CT Dose-Length Product (DLP): 265 mGy*cm * CT Dose Reduction Employed: Yes * Blood glucose: 103 mg/dL * Injection site: Left Hand * Injected activity: 8.3 mCi * Uptake Time: 48 minutes * Radiopharmaceutical: T12-Briwtynlctringpidm (FDG) COMPARISON: FDG PET/CT 10/21/2023 CORRELATION: CT chest, abdomen pelvis of 01/25/2024 RESULT: REFERENCES: FDG uptake is used as a surrogate marker for glucose metabolism. All reported standardized uptake values represent maximum SUV (SUVmax) per body weight, unless otherwise specified. SUV reference values, as follows: * Blood Pool (Descending Aorta): SUVmax 2.7 * Background Liver: SUVmax 3.2; Localizer Images: No additional findings. HEAD AND NECK: Head: No radiotracer avid lesion or mass effect in the imaged intracranial compartment. Aerodigestive Tract: No radiotracer avid lesion. Lymph Nodes: No radiotracer avid lymphadenopathy. Neck Soft Tissues: No radiotracer avid thyroid nodule. CHEST: Lungs & Pleura: Decreased radiotracer avid left lower lobe superior segment mass, 1.1 x 2.3 cm, SUV 2.7, prior 4.2 x 4.4 cm previously 22.9 Lymph Nodes: No radiotracer avid lymphadenopathy. Mediastinum: No radiotracer avid mass. Cardiovascular: Blood pool activity. No pericardial effusion Chest Wall: No radiotracer avid soft tissue lesion. ABDOMEN AND PELVIS: Hepatobiliary: No radiotracer avid lesion. Spleen: No radiotracer avid lesion. No splenomegaly. Pancreas: No radiotracer avid lesion. Adrenals: No radiotracer avid nodule. Urinary Tract: Physiologic radiotracer excretion in the renal collecting systems and urinary bladder. No hydronephrosis. Non-obstructing nephrolithiasis. GI Tract: No radiotracer avid lesion. No bowel dilation. Peritoneum: No radiotracer avid lesion. No ascites. Lymph Nodes: No radiotracer avid lymphadenopathy. Vasculature: Blood pool activity. Pelvic Organs: No radiotracer avid lesion. MUSCULOSKELETAL: Bones: No radiotracer avid lesion. Degenerative uptake in the spine. Soft Tissues: No radiotracer avid lesion. IMPRESSION IMPRESSION: HEAD/NECK: * No FDG avid disease. CHEST: * Decreased FDG avid left lower lobe malignant mass, residual small opacity with mild uptake ABDOMEN/PELVIS: * No FDG avid disease. MUSCULOSKELETAL: * No FDG avid disease. Transcribe Date/Time: Apr 03 2024 1:44P Dictated by: USAMA PANIAGUA MD This examination was interpreted and the report reviewed and electronically signed by: USAMA PANIAGUA MD on Apr 03 2024 2:10PM EST Thank you for allowing us to participate in the care of your patient. Should there be any questions regarding this interpretation, please call [phone]. If you are unable to reach us at the number above, please feel free to contact [facility] eRadiology at [phone]. [facility] ShawRad[facility] Study observation (narrative)[facility] SerPl-aCncon [id number] Qn1.780 m[IU]/LNormal0.270-4.200St. [facility] HospitalComment on above:Order Comment: Specimen Type: BLOOD SPECIMENOrdering Facility: [facility] Address:[address] [place], [place] [address]Performed By: #### 3016-3, 2143-6 ####[facility] LABCLIA [id number] [place] [address] [place] CNOVon [id number] Clinic ClevelandCNPNon 13-86-1815FJKMLsfahd St. Elizabeth HospitalCNOVon 71-72-3571DFLYRnpflbLykwmwjrh [facility] No Panel Informationon [id number] King NP 03/08/2024 12:36 PM L Inj/Asp: R greater trochanteric bursa on 03/08/2024 12:35 PM Indications: pain Details: 21 G needle, lateral approach Medications: 40 mg methylPREDNISolone acetate 40 MG/ML Outcome: tolerated well, no immediate complications UTILIZING ASEPTIC TECHNIQUE PT GIVEN INJECTION IN RIGHT HIP BURSA NEUROVASC INTACT S/P INJ, TOLERATED WELL Procedure, treatment alternatives, risks and benefits explained, specific risks discussed. Consent was given by the patient. [facility] CenterCNPNon [id number]nt Clinic ClevelandCBC W Auto Differential panel (Bld)on [id number] (Bld) [#/Vol] 0.09 10*3/uLNormal<0.11CUpper [facility] Medical Center on above:Order Comment: Specimen Type: BLOOD SPECIMENOrdering Facility: [facility] Address:[address] [place], [place] [address]Performed By: #### 33892-0 ####[facility] LABCLIA [id number] [place], [place] [address]Vasagilmp/100 WBC (Bld)0.7 %NormalTwin City Hospital on above:Order Comment: Specimen Type: BLOOD SPECIMENOrdering Facility: [facility] Address:[address] [place], [place] [address]Performed By: #### 27661-7 ####[facility] LABIA [id number] [place], [place] [address]Wdzpsvmcdrre cell count method Nom (Bld)AutoNormalCUpper Valley Medical Center on above:Order Comment: Specimen Type: BLOOD SPECIMENOrdering Facility: [facility] Address:[address] [place], [place] [address]Performed By: #### 72911-1 ####[facility] LABCLIA [id number] [place], [place] [address]Ntbhzfqlefx (Bld) [#/Vol]3.12 10*3/uLHigh<0.46[facility] on above:Order Comment: Specimen Type: BLOOD SPECIMENOrdering Facility: [facility] Address:[address] [place], [place] [address]Performed By: #### 43549-5 ####[facility] LABCLIA [id number] [place], [place] [address]Xrvoilvpuag/100 WBC (Bld)25.1 %NormalTwin City Hospital on above:Order Comment: Specimen Type: BLOOD SPECIMENOrdering Facility: [facility] Address:[address] [place], [place] [address]Performed By: #### 22003-5 ####[facility] LABCLIA [id number] [place], [place] [address]Mhkpfbmcetx distribution width (RBC) [Ratio]15.7 %High 11.5-15.0[facility] on above:Order Comment: Specimen Type: BLOOD SPECIMENOrdering Facility: [facility] Address:[address] [place], [place] [address]Performed By: #### 68143-1 ####[facility] LABIA [id number] [place] [address] Hematocrit (Bld) [Volume fraction]33.3 %Low39.0-51.0[facility] Comment on above:Order Comment: Specimen Type: BLOOD SPECIMENOrdering Facility: [facility] Address:[address] [place] [address] Performed By: #### 07705-1 ####[facility] LABCLIA [id number] [place], [place] [address]Sllvgnpyft (Bld) [Mass/Vol]11.2 g/dLLow13.0-17.0[facility] on above:Order Comment: Specimen Type: BLOOD SPECIMENOrdering Facility: [facility] Address:[address] [place], [place] [address]Performed By: #### 67674-2 ####[facility] LABIA [id number] [place], [place] [address]Aezmkxok granulocytes (Bld) [#/Vol]0.09 10*3/uLNormal <0.10[facility] on above:Order Comment: Specimen Type: BLOOD SPECIMENOrdering Facility: [facility] Address:[address] [place], [place] [address]Performed By: #### 43755-8 ####[facility] LABCLIA [id number] [place], [place] [address]Mdqhvqlj granulocytes/100 WBC (Bld)0.7 %NormalTwin City Hospital on above: Order Comment: Specimen Type: BLOOD SPECIMENOrdering Facility: [facility] Address:[address] [place], [place] [address]Performed By: #### 37434- 8 ####[facility] LABCLIA [id number] [place], [place] [address]Acqdswugygg (Bld) [#/Vol]2.67 10*3/uLNormal1.00-4.00 [facility] on above:Order Comment: Specimen Type: BLOOD SPECIMENOrdering Facility: [facility] Address:[address] [place], [place] [address]Performed By: #### 70709-7 ####[facility] LABIA [id number] [place], [place] [address]Rbqhbhuopfn/100 WBC (Bld)21.5 %NormalTwin City Hospital on above:Order Comment: Specimen Type: BLOOD SPECIMENOrdering Facility: [facility] Address:[address] [place], [place] [address]Performed By: #### 51342-9 ####[facility] LABCLIA [id number] [place], [place] [address]OMJ (RBC) [Entitic mass]29.5 lkZdrerj72.0-34.0[facility] on above:Order Comment: Specimen Type: BLOOD SPECIMENOrdering Facility: [facility] Address:[address] [place], [place] [address]Performed By: #### 87682-4 ####[facility] LABIA [id number] [place], [place] [address]IGSU (RBC) [Mass/Vol]33.6 g/lFLmwdeu27.5-36.0[facility] on above: Order Comment: Specimen Type: BLOOD SPECIMENOrdering Facility: [facility] Address:[address] [place], [place] [address]Performed By: #### 37734- 8 ####[facility] LABCLIA [id number] [place], [place] [address]WPP (RBC) [Entitic vol]87.6 kVVxcbfy21.0-100.0[facility] on above:Order Comment: Specimen Type: BLOOD SPECIMENOrdering Facility: [facility] Address:[address] [place], [place] [address]Performed By: #### 47867-6 ####[facility] LABCLIA [id number] [place], [place] [address]Uhhiejimb (Bld) [#/Vol]1.02 10*3/uLHigh<0.87[facility] on above:Order Comment: Specimen Type: BLOOD SPECIMENOrdering Facility: [facility] Address:[address] [place], [place] [address]Performed By: #### 66344- 8 ####[facility] LABCLIA [id number] [place], [place] [address]Kolvxrgko/100 WBC (Bld)8.2 %NormalTwin City Hospital on above:Order Comment: Specimen Type: BLOOD SPECIMENOrdering Facility: [facility] Address:[address] [place], [place] [address]Performed By: #### 48843-7 ####[facility] LABCLIA [id number] [place], [place] [address]Fpdijqkxpbi (Bld) [#/Vol]5.42 10*3/uLNormal1.45-7.50[facility] on above:Order Comment: Specimen Type: BLOOD SPECIMENOrdering Facility: [facility] Address:[address] [place], [place] [address]Performed By: #### 90815-3 ####[facility] LABCLIA [id number] [place], [place] [address]Lieldgyaxuh/100 WBC (Bld)43.8 %NormalTwin City Hospital on above:Order Comment: Specimen Type: BLOOD SPECIMENOrdering Facility: [facility] Address:[address] [place], [place] [address]Performed By: #### 49062-5 ####[facility] LABCLIA [id number] [place], [place] [address]Eaqofplzh RBC (Bld) [#/Vol] 10*3/uLNormal<0.01[facility] on above:Order Comment: Specimen Type: BLOOD SPECIMENOrdering Facility: [facility] Address:[address] [place], [place] [address]Performed By: #### 24667-6 ####[facility] LABCLIA [id number] [place], [place] [address]Llqsumqza RBC/100 WBC (Bld) [Ratio]0.0 /100 WBCNormal [facility] on above:Order Comment: Specimen Type: BLOOD SPECIMENOrdering Facility: [facility] Address:[address] [address] [place], [place] [address]Performed By: #### 41427-3 ####[facility] LABCLIA [id number] [place], [place] [address]Lxdtubxc mean volume (Bld) [Entitic vol]10.1 fLNormal9.0-12.7CU[facility] on above:Order Comment: Specimen Type: BLOOD SPECIMENOrdering Facility: [facility] Address:[address] [place] [address] Performed By: #### 95790-7 ####[facility] LABCLIA [id number] [place], [place] [address]Tbkmjwvdo (Bld) [#/Vol]227 10*3/dCTrvupw119-690JywuomwkaTwin City Hospital on above:Order Comment: Specimen Type: BLOOD SPECIMENOrdering Facility: [facility] Address:[address] [place], [place] [address]Performed By: #### 99113-6 ####[facility] LABCLIA [id number] [place], [place] [address]UZJ (Bld) [#/Vol]3.80 10*6/uLLow4.20-6.00[facility] on above:Order Comment: Specimen Type: BLOOD SPECIMENOrdering Facility: [facility] Address:[address] [place], [place] [address]Performed By: #### 12616-7 ####[facility] LABIA [id number] [place], [place] [address]JIH (Bld) [#/Vol]12.41 10*3/uL High3.70-11.00[facility] on above:Order Comment: Specimen Type: BLOOD SPECIMENOrdering Facility: [facility] Address:[address] [place], [place] [address]Performed By: #### 65432-2 ####[facility] LABIA [id number] [place] [address] [facility] CBC W AUTO DIFF BLDon 91-88-5332Mwirupyhc/100 WBC (Bld)0.7 %[facility] CCF BASOPHILS # BLD AUTO0.09NIHumboldt General Hospital DIFFERENTIAL METHOD BLDAuto [facility]land Behavior[facility] Health ServicesF EOSINOPHIL # BLD AUTO3.12HighNINFTexas County Memorial Hospital LYMPHOCYTES # BLD AUTO2.67NOSSM [facility] MONOCYTES # BLD AUTO1.02HighNINF [facility] Health ServicesF NEUTROPHILS # BLD AUTO5.42NOSSM [facility] NRBC # BLD AUTO <0.01NIH[facility]t [facility] NRBC/100 WBC BLD-RTO0/100 WBCNOSSM [facility] PLATELET # BLD ATZD202BYFHTexas County Memorial Hospital PMV BLD AUTO10.1 fL9.0 - 12.7 fLSaint Luke's North Hospital–Barry RoadCCF WBC # BLD AUTO12.41HighSaint Luke's North Hospital–Barry RoadEosinophils/100 WBC (Bld) 25.1 %[facility]–Barry RoadErythrocyte distribution width (RBC) [Ratio]15.7 %High11.5 - 15.0 %[facility]Barry RoadHematocrit (Bld) [Volume fraction]33.3 %Low39.0 - 51.0 % [facility] RoadHemoglobin (Bld) [Mass/Vol]11.2 g/dLLow13.0 - 17.0 g/dLSaint Luke's North Hospital–Barry RoadIMM GRANULOCYTES # BLD AUTO0.09NINFJefferson Memorial Hospital GRANULOCYTES/LEUK NFR BLD AUTO0.7 %[facility] RoadInterpretation and review of laboratory resultsAbnormalSaint Luke's North Hospital–Barry RoadLymphocytes/100 WBC (Bld)21.5 %[facility]Barry RoadMCH (RBC) [Entitic mass]29.5 pg26.0 - 34.0 pgRusk Rehabilitation CenterHC (RBC) [Mass/Vol]33.6 g/dL30.5 - 36.0 g/dLRusk Rehabilitation CenterV (RBC) [Entitic vol]87.6 fL 80.0 - 100.0 fLSaint Luke's North Hospital–Barry RoadMonocytes/100 WBC (Bld)8.2 %[facility] Neutrophils/100 WBC (Bld)43.8 %[facility]–Barry RoadRBC (Bld) [#/Vol]3.8 10*6/uLLow 4.20 - 6.00 m/uLUTAH [facility] HealthcareSpecimen Type: BLOOD SPECIMEN Ordering Facility: [facility] Address: [address] [place] [address] Original Ordering Provider: LO SERRATOSaint Luke's North Hospital–Barry RoadCNOVSPon 80-57-7361ECOKOWPmacrnEjijtihbq Randolph HealthComprehensive metabolic 2000 panelon 43-01-1584Lcsnawl [Mass/Vol]4.4 g/dLNormal3.9-4.9CTriHealth McCullough-Hyde Memorial HospitalComment on above:Order Comment: Specimen Type: BLOOD SPECIMENOrdering Facility: [facility] Address:[address] [place] [address]Eyrrgscwi By: #### 44348-6 ####[facility] LABCLIA [id number] [facility]ANKSDIGN[facility] MEDICAL CENTERTANYABIGELOW, [place] [address]XQE [Catalytic activity/Vol]77 U/SHhgcrg16-105VrjdhguqbTwin City Hospital on above:Order Comment: Specimen Type: BLOOD SPECIMENOrdering Facility: [facility] Address:[address] [place], [place] [address]Performed By: #### 68537-7 ####[facility] LABCLIA [id number] LLOYD COTTONDIGNITY HEALTH ST[facility]ST[facility] MEDICAL CENTERTESSANORTH [place], [place] [address]GMG [Catalytic activity/Vol]18 U/RHboldd18-38SvnnvgvhvTwin City Hospital on above:Order Comment: Specimen Type: BLOOD SPECIMENOrdering Facility: [facility] Address:[address] [place], [place] [address]Performed By: #### 12223-6 ####[facility] LABCLIA [id number] [place]NIE [place]EROMERENECENTRAL [place], [place] [address]Kzzmm gap [Moles/Vol]10 mmol/LNormal8-15[facility] on above:Order Comment: Specimen Type: BLOOD SPECIMENOrdering Facility: [facility] Address:[address] [place], [place] [address]Performed By: #### 62097- 8 ####[facility] LABCLIA [id number] L[address]YD COTTONDIGN[address] MEDICAL CENTERTESSANORTH [place], [place] [address]YRU [Catalytic activity/Vol]17 U/TLdgusi09-66AndjotxbnTwin City Hospital on above:Order Comment: Specimen Type: BLOOD SPECIMENOrdering Facility: [facility] Address:[address] [place], [place] [address]Performed By: #### 82504-7 ####[facility] LABIA [id number] [facility] JEROMERENEDIGNITY HEALTH ST. JO[facility] WEST[facility] MEDICAL CENTERTANYABIGELOW, [place] [address]Nmzljdzzl [Mass/Vol]0.2 mg/dLNormal0.2-1.3CUpper [facility] on above:Order Comment: Specimen Type: BLOOD SPECIMENOrdering Facility: [facility] Address:[address] [place], [place] [address]Performed By: #### 52270- 8 ####[facility] LABCLIA [id number] L[address]YD COTTOND[address] [facility] MEDICAL CENTERTANYABIGELOW, [place] [address]Psowjrp [Mass/Vol]9.5 mg/dLNormal8.5-10.2CU[facility] on above:Order Comment: Specimen Type: BLOOD SPECIMENOrdering Facility: [facility] Address:[address] [place], [place] [address]Performed By: #### 97043-4 ####[facility] LABCLIA [id number] [place] CANORENECENTRAL [place], [place] [address]Lzbyozwk [Moles/Vol]97 mmol/L Fga31-029HetfcnbbcTwin City Hospital on above:Order Comment: Specimen Type: BLOOD SPECIMENOrdering Facility: [facility] Address:[address] [place], [place] [address]Performed By: #### 21698-0 ####[facility] LABCLIA [id number] [facility] SUN[facility] [place] [address] CO2 [Moles/Vol]32 mmol/RBcen48-70JaclnkcayTwin City Hospital on above: Order Comment: Specimen Type: BLOOD SPECIMENOrdering Facility: [facility] Address:[address] [place], [place] [address]Performed By: #### 23879- 8 ####[facility] LABCLIA [id number] L[address]Y[facility] COTTONDIGN[address] HE[facility] MEDICAL CENTERTESSANORTH [place], [place] [address]Jkajeftxts [Mass/Vol]0.79 mg/dLNormal0.73-1.22[facility] on above:Order Comment: Specimen Type: BLOOD SPECIMENOrdering Facility: [facility] Address:[address] [place], [place] [address]Performed By: #### 95975-1 ####[facility] LABCLIA [id number] ERNIEST. HELENS HOSPITAL AND HEALTH CENTERRENECENTRAL [place]ALLS, [place] [address]Vdhsdqglan and Glomerular filtration rate.predicted panel (S/P/Bld)97 mL/min/1.73m???Normal>=60 [facility] on above:Order Comment: Specimen Type: BLOOD SPECIMENOrdering Facility: [facility] Address:[address] [place], [place] [address]Dtxmaw Comment: Estimated Glomerular Filtration Rate (eGFR) is calculated using the 2020 CKD-EPI creatinine equation. This equation utilizes serum creatinine, sex, and age as parameters. The creatinine assay has traceable calibration to isotope dilution-mass spectrometry. Refer to KDIGO guidelines for clinical interpretation. In patients with unstable renal function, e.g. those with acute kidney injury, the eGFR may not accurately reflect actual GFR.Performed By: #### 66796-9 ####[facility] LABIA [id number] [place], [place] [address]Mbbiejk [Mass/Vol]122 mg/uJZzei47-42UvflehnucTwin City Hospital on above:Order Comment: Specimen Type: BLOOD SPECIMENOrdering Facility: [facility] Address:[address] [place] [address]Oqefzj Comment: The [place] Diabetes Association (ADA) provides guidance for cutoff values for fast ing glucose and random glucose. The ADA defines fasting as no caloric intake for at least 8 hours. Fasting plasma glucose results between 100 to 125 mg/dL indicate increased risk for diabetes (prediabetes).Fasting plasma glucose results greater than or equal to 126 mg/dL meet the criteria for diagnosis of diabetes. In the absence of unequivocal hyperglycemia, results should be confirmed by repeattesting. In a patient with classic symptoms of hyperglycemia or hyperglycemic crisis, random plasmaglucose results greater than or equal to 200 mg/dL meet the criteria for diagnosis of diabetes.Reference: Standards of Medical Care in Diabetes 2016, [place] Diabetes Association. Diabetes Care. 2016.39(Suppl 1).Performed By: #### 66919-8 ####[facility] LABIA [id number] [place], [place] [address]Lfrubrpjr [Moles/Vol]3.1 mmol/LLow3.7-5.1CUpper Valley [facility] Center on above:Order Comment: Specimen Type: BLOOD SPECIMENOrdering Facility: [facility] Address:[address] [place], [place] [address]Performed By: #### 63232- 8 ####[facility] LABCLIA [id number] [place], [place] [address]Earnlmz [Mass/Vol]6.4 g/dLNormal6.3-8.0[facility] on above:Order Comment: Specimen Type: BLOOD SPECIMENOrdering Facility: [facility] Address:[address] [place], [place] [address]Performed By: #### 74688-4 ####[facility] LABCLIA [id number] [place], [place] [address]Dgbphc [Moles/Vol]139 mmol/L Dkqyjj653-256UrbirwtimTwin City Hospital on above:Order Comment: Specimen Type: BLOOD SPECIMENOrdering Facility: [facility] Address:[address] [place], [place] [address]Performed By: #### 78857-3 ####[facility] LABCLIA [id number] [place] [address] Urea nitrogen [Mass/Vol]14 mg/dLNormal9-24[facility] on above:Order Comment: Specimen Type: BLOOD SPECIMENOrdering Facility: [facility] Address:[address] [place], [place] [address]Performed By: #### 83501-6 ####[facility] LABCLIA [id number] [place], [place] [address]Vnfyho SerPl-mCncon 50-81-6985Uqpkxydg [Mass/Vol]5.4 ug/dLNormal4.8-19.5CU[facility] on above:Order Comment: Specimen Type: BLOOD SPECIMENOrdering Facility: [facility] Address:[address] [place], [place] [address]Result Comment: Provided reference range is from 6-10 AM sample collection time.Cortisol Reference Range: 6-10 AM = 4.8-19.5 ug/dL, 4-8 PM = 2.5-11.9 ug/dLPerformed By: #### 3016-3, 6 ####[facility] LABCLIA [id number] [address] STATES OF PKBCXTWMqO3g (Bld)on 15-91-8767Iucykck glucose Estimated from glycated hemoglobin (Bld) [Mass/Vol]108 mg/dLNormal [facility] on above:Order Comment: Specimen Type: BLOOD SPECIMENOrdering Facility: [facility] Address:[address] [place], [place] [address]Result Comment: eAG: (Estimated average glucose) is a calculated value from HgbA1c and is telephone claims representative of the average blood glucose level in the last 2-3 month period.Performed By: #### 75551-9 ####[facility]ENTERIA [id number] [address]ETHbA1c (Bld) [Mass fraction]5.4 %Normal4.3-5.6 [facility] on above:Order Comment: Specimen Type: BLOOD SPECIMENOrdering Facility: [facility] Address:[address] [place], [place] [address]Result Comment: [place] Diabetes Association guidelines indicate that patients with HgbA1c in the range 5.7-6.4% are at increased risk for development of diabetes, and intervention by lifestyle modification may be beneficial. HgbA1c greater or equal to 6.5% is considered diagnostic of diabetes.Performed By: #### 93278-8 ####[facility] LABIA [id number] [place] [id number] [place] TSH SerPl-aCncon 91-10-1761UDX Qn3.890 m[IU]/LNormal0.270-4.200[facility] on above:Order Comment: Specimen Type: BLOOD SPECIMENOrdering Facility: [facility] Address:[address] [place], [place] [address]Performed By: #### 3016-3, 6 ####[facility] LABCLIA [id number] [place] [address] [place] CNPNon 10-00-1020FQDMNgtqopWoygaonfc Clinic ClevelandNM QUANT DIFF PULM PERF INC IMAGINGon 92-95-9021CC QUANT DIFF PULM PERF INC IMAGINGNM QUANT DIFF PULM PERF INC IMAGING PERFUSION LUNG SCAN HISTORY: Preoperative assessment, chest mass, tumor. COMPARISON: PET CT 10/21/2023 TECHNIQUE: 5 mCi technetium 99m MAA injected intravenously without reported complication. Planar images of the lungs obtained in multiple projections for both ventilation and perfusion. FINDINGS: There is asymmetric decreased radiotracer uptake in the left lung compared to the right. Perfusion of the right upper, middle and lower segments were 12% 24.1% and 20.7%, respectively. This correlates with a total perfusion of 56.7%. Perfusion of the left upper, middle and lower segments were 11.6% 16.8% and 14.8%, respectively. This correlates with a total perfusion of 43.3%. IMPRESSION: Diffuse decreased radiotracer uptake in the left lung compared to the right. The total perfusion ofthe right lung equals 56.7% and total perfusion and the left lung equals 43.3%. Approved by Resident Erin Rizzo DO on 02/20/2024 7:49 AM I, Sanchez Mandel MD have personally reviewed the image(s) and agree with and/or edited the report Finalized by Sanchez Mandel MD on 02/20/2024 12:14 PMNormalProBarnesville Hospitalca Kaiser Foundation HospitalCNOVon 67-31-0025VDWBIyneulKvbttkozm Clinic ClevelandCNPNon 01-26-2024 CNPNNormalSt. Elizabeth HospitalCB W Auto Differential panel (Bld)on 90-77-9291Tgxbhnbou (Bld) [#/Vol]0.05 10*3/uLNINFSelect Medical Cleveland Clinic Rehabilitation Hospital, Edwin ShawDifferential cell count method Nom (Bld)AutoCleveland ClinicEosinophils (Bld) [#/Vol]9.15 10*3/uLHighNIBlanchard Valley Health System Bluffton HospitalEosinophils/100 WBC (Bld)55.0 %[facility] Immature granulocytes (Bld) [#/Vol]0.05 10*3/uLNINFSelect Medical Cleveland Clinic Rehabilitation Hospital, Edwin ShawImmature granulocytes/100 WBC (Bld)0.3 %[facility] Hospital, Edwin ShawLymphocytes (Bld) [#/Vol]2.50 10*3/uLSelect Medical Cleveland Clinic Rehabilitation Hospital, Edwin ShawLymphocytes/100 WBC (Bld)15.0 %[facility] Hospital, Edwin ShawMonocytes (Bld) [#/Vol]0.84 10*3/uLNINFSelect Medical Cleveland Clinic Rehabilitation Hospital, Edwin ShawMonocytes/100 WBC (Bld)5.0 % [facility] Hospital, Edwin ShawNeutrophils (Bld) [#/Vol]4.06 10*3/uLSelect Medical Cleveland Clinic Rehabilitation Hospital, Edwin ShawNucleated RBC (Bld) [#/Vol]NINFCNorwalk Memorial HospitalNucleated RBC/100 WBC (Bld) [Ratio]0.0 % /100 WBCSelect Medical Cleveland Clinic Rehabilitation Hospital, Edwin ShawPlatelet mean volume (Bld) [Entitic vol]10.0 fL9.0 - 12.7 fLClevelfirsthealth montgomery memorial hospital ClinicPlatelets (Bld) [#/Vol]194 10*3/uLWeirsdale ClinicRBC (Bld) [#/Vol]3.50 10*6/uLLow4.20 - 6.00 m/[facility] Health SystemWBC (Bld) [#/Vol] 16.65 10*3/uLPremier Health Miami Valley HospitalBasophils (Bld) [#/Vol]0.05 10*3/uLNormal<0.11 [facility] on above:Order Comment: Specimen Type: BLOOD SPECIMENOrdering Facility: [facility] Address:[address] [place], [place] [address]Performed By: #### 57403-8 ####[facility] LABIA [id number] [place], [place] [address]Olmcquyct/100 WBC (Bld)0.3 %NormalTwin City Hospital on above:Order Comment: Specimen Type: BLOOD SPECIMENOrdering Facility: [facility] Address:[address] [place], [place] [address]Performed By: #### 38030-0 ####[facility] LABIA [id number] [place], [place] [address]Ommmcztnejxe cell count method Nom (Bld)AutoNormal [facility] on above:Order Comment: Specimen Type: BLOOD SPECIMENOrdering Facility: [facility] Address:[address] [place], [place] [address]Performed By: #### 31856-0 ####[facility] LABCLIA [id number] [place], [place] [address]Kcbionffrjv (Bld) [#/Vol]9.15 10*3/uLHigh<0.46[facility] on above: Order Comment: Specimen Type: BLOOD SPECIMENOrdering Facility: [facility] Address:[address] [place], [place] [address]Performed By: #### 73198- 8 ####[facility] LABIA [id number] [place], [place] [address]Jivykrwmvxb/100 WBC (Bld)55.0 %NormalTwin City Hospital on above:Order Comment: Specimen Type: BLOOD SPECIMENOrdering Facility: [facility] Address:[address] [place], [place] [address]Performed By: #### 78229-5 ####[facility] LABIA [id number] [place], [place] [address]Xelfunqduol distribution width (RBC) [Ratio]15.7 %High11.5-15.0[facility] on above:Order Comment: Specimen Type: BLOOD SPECIMENOrdering Facility: [facility] Address:[address] [place], [place] [address]Performed By: #### 62380- 8 ####[facility] LABIA [id number] [place], [place] [address]Oiwnrotkrt (Bld) [Volume fraction]30.2 %Low39.0-51.0 [facility] on above:Order Comment: Specimen Type: BLOOD SPECIMENOrdering Facility: [facility] Address:[address] [place], [place] [address]Performed By: #### 26019-1 ####[facility] LABCLIA [id number] [place], [place] [address]Eseveuyxax (Bld) [Mass/Vol]10.4 g/dLLow13.0-17.0[facility] on above:Order Comment: Specimen Type: BLOOD SPECIMENOrdering Facility: [facility] Address:[address] [place], [place] [address]Performed By: #### 38200- 8 ####[facility] LABCLIA [id number] [place], [place] [address]Dkocdyep granulocytes (Bld) [#/Vol]0.05 10*3/uLNormal <0.10[facility] on above:Order Comment: Specimen Type: BLOOD SPECIMENOrdering Facility: [facility] Address:[address] [place], [place] [address]Performed By: #### 38364-2 ####[facility] LABIA [id number] [place], [place] [address]Kezrcbpf granulocytes/100 WBC (Bld)0.3 %NormalTwin City Hospital on above: Order Comment: Specimen Type: BLOOD SPECIMENOrdering Facility: [facility] Address:[address] [place], [place] [address]Performed By: #### 70417- 8 ####[facility] LABCLIA [id number] [place], [place] [address]Irrdegfstdj (Bld) [#/Vol]2.50 10*3/uLNormal1.00-4.00 [facility] on above:Order Comment: Specimen Type: BLOOD SPECIMENOrdering Facility: [facility] Address:[address] [place], [place] [address]Performed By: #### 44466-2 ####[facility] LABIA [id number] [place], [place] [address]Lgonebspfgu/100 WBC (Bld)15.0 %NormalTwin City Hospital on above:Order Comment: Specimen Type: BLOOD SPECIMENOrdering Facility: [facility] Address:[address] [place], [place] [address]Performed By: #### 32644-7 ####[facility] LABCLIA [id number] [place], [place] [address]RSB (RBC) [Entitic mass]29.7 eyErxdiw65.0-34.0[facility] on above:Order Comment: Specimen Type: BLOOD SPECIMENOrdering Facility: [facility] Address:[address] [place], [place] [address]Performed By: #### 90675-8 ####[facility] LABCLIA [id number] [place], [place] [address]TMXJ (RBC) [Mass/Vol]34.4 g/mFRxplwx54.5-36.0[facility] on above: Order Comment: Specimen Type: BLOOD SPECIMENOrdering Facility: [facility] Address:[address] [place], [place] [address]Performed By: #### 38740- 8 ####[facility] LABCLIA [id number] [place], [place] [address]JAI (RBC) [Entitic vol]86.3 fGZmagta35.0-100.0[facility] on above:Order Comment: Specimen Type: BLOOD SPECIMENOrdering Facility: [facility] Address:[address] [place], [place] [address]Performed By: #### 12993-8 ####[facility] LABIA [id number] [place], [place] [address]Minrqhpeb (Bld) [#/Vol]0.84 10*3/uLNormal<0.87[facility] on above:Order Comment: Specimen Type: BLOOD SPECIMENOrdering Facility: [facility] Address:[address] [place], [place] [address]Performed By: #### 28070- 8 ####[facility] LABCLIA [id number] [place], [place] [address]Jjxbjaxca/100 WBC (Bld)5.0 %NormalTwin City Hospital on above:Order Comment: Specimen Type: BLOOD SPECIMENOrdering Facility: [facility] Address:[address] [place], [place] [address]Performed By: #### 52154-2 ####[facility] LABCLIA [id number] [place], [place] [address]Jnlcuempsux (Bld) [#/Vol]4.06 10*3/uLNormal1.45-7.50[facility] on above:Order Comment: Specimen Type: BLOOD SPECIMENOrdering Facility: [facility] Address:[address] [place], [place] [address]Performed By: #### 46070-2 ####[facility] LABCLIA [id number] [place], [place] [address]Otsynfaimxt/100 WBC (Bld)24.4 %NormalTwin City Hospital on above:Order Comment: Specimen Type: BLOOD SPECIMENOrdering Facility: [facility] Address:[address] [place], [place] [address]Performed By: #### 74803-4 ####[facility] LABCLIA [id number] [place], [place] [address]Ztfcsqvpe RBC (Bld) [#/Vol] 10*3/uLNormal<0.01[facility] on above:Order Comment: Specimen Type: BLOOD SPECIMENOrdering Facility: [facility] Address:[address] [place], [place] [address]Performed By: #### 13320-1 ####[facility] LABCLIA [id number] [place], [place] [address]Dulxigjdp RBC/100 WBC (Bld) [Ratio]0.0 /100 WBCNormal [facility] on above:Order Comment: Specimen Type: BLOOD SPECIMENOrdering Facility: [facility] Address:[address] [place], [place] [address]Performed By: #### 03659-5 ####[facility] LABCLIA [id number] [place], [place] [address]Sasddwrp mean volume (Bld) [Entitic vol]10.0 fLNormal9.0-12.7CU[facility] on above:Order Comment: Specimen Type: BLOOD SPECIMENOrdering Facility: [facility] Address:[address] [place] [address] Performed By: #### [id number] ####[facility] LABCLIA [id number] [place], [place] [address]Yahahvtxk (Bld) [#/Vol]194 10*3/qQKtlbfq744-709UnwivsmrjTwin City [facility] on above:Order Comment: Specimen Type: BLOOD SPECIMENOrdering Facility: [facility] Address:[address] [place], [place] [address]Performed By: #### 83309-6 ####[facility] LABCLIA [id number] [place], [place] [address]ENB (Bld) [#/Vol]3.50 10*6/uLLow4.20-6.00[facility] on above:Order Comment: Specimen Type: BLOOD SPECIMENOrdering Facility: [facility] Address:[address] [place], [place] [address]Performed By: #### 10421-0 ####[facility] LABCLIA [id number] [place], [place] [address]OVI (Bld) [#/Vol]16.65 10*3/uL High3.70-11.00[facility] on above:Order Comment: Specimen Type: BLOOD SPECIMENOrdering Facility: [facility] Address:[address] [place], [place] [address]Performed By: #### [id number] ####[facility] LABCLIA [id number] [place] [address] [facility] CBC W AUTO DIFF BLDon [id number] BASOPHILS # BLD AUTO0.05NIHumboldt General Hospital DIFFERENTIAL METHOD BLDAutoNOMBoone Hospital Center EOSINOPHIL # BLD AUTO9.15HighNINFTexas County Memorial Hospital LYMPHOCYTES # BLD AUTO2.5NOSSM [facility] MONOCYTES # BLD AUTO0.84NI[facility] NEUTROPHILS # BLD AUTO4.06[facility] NRBC # BLD AUTO<0.01NI[facility] NRBC/100 WBC BLD-RTO0 /100 WBCTexas County Memorial Hospital PLATELET # BLD FMET227CFYSTexas County Memorial Hospital PMV BLD AUTO 10 fL9.0 - 12.7 fLTexas County Memorial Hospital WBC # BLD AUTO16.65HighSaint [facility] Eosinophils/100 WBC (Bld)55 %NOMS HealthcareIMM GRANULOCYTES # BLD AUTO0.05NINF NOMS HealthcareIMM GRANULOCYTES/LEUK NFR BLD AUTO0.3 %[facility] Lymphocytes/100 WBC (Bld)15 %NOMS HealthcareMonocytes/100 WBC (Bld)5 %NOMS HealthcareRBC (Bld) [#/Vol]3.5 10*6/uLLow4.20 - 6.00 m/[facility] Medical CenterSpecimen Type: BLOOD SPECIMEN Ordering Facility: [facility] Address: [address] [place] [address] Original Ordering Provider: LO SANCHEZLINISYNCCT ABD/PEL W IVCONon [id number] ABD/PEL W IVCONNormalSt. Elizabeth HospitalCT Abdomen and Pelvis W contrast Landy 15-58-5005JIOZUINVEA: No metastatic disease in the abdomen or pelvis. Transcribe Date/Time: Jan 25 2024 10:48A Dictated by: BASHIR SUH MD This examination was interpreted and the report reviewed and electronically signed by: BASHIR SUH MD on Jan 25 2024 11:00AM EST Thank you for allowing us to participate in the care of your patient. Should there be any questions regarding this interpretation, please call [phone]. 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 . Contrast: IV: 100 ml of Omnipaque 350 Oral: 500 ml of Omni 240 10-25ml diluted with water CT Radiation dose: Integrated Dose-length product (DLP) for this visit = 1483 mGy*cm. CT Dose Reduction Employed: Automated exposure control (AEC) COMPARISON: CT runoff 09/24/2023 Abdomen / Pelvis: Liver: No focal hepatic lesions. Spleen: No focal splenic lesion. Pancreas: No focal pancreatic lesions. Adrenals: No mass. Biliary: No bile duct dilation. No gallbladder wall thickening. Kidneys: Symmetric nephrograms bilaterally without hydronephrosis. 7 mm left lower pole calculus. 1.4 cm right lower pole cyst. Vasculature: The celiac axis and SMA are patent. The portal vein and branches, splenic vein, SMV, and hepatic veins are patent. Severe atherosclerotic calcifications of the abdominal aorta without aneurysm. GI tract: No bowel obstruction. Lymph nodes: No lymphadenopathy by CT size criteria. Mesentery/Peritoneum: No ascites, fluid collection, or mass. Pelvis: No mass or fluid collection. Urinary bladder is unremarkable. Bones/Soft tissues: Degenerative changes at L4-L5. No aggressive osseous lesions. Lower thorax: Dedicated CT imaging of the chest was performed concurrently and is dictated separately. Body Joiner (topogram) images: Unremarkable. 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 . Contrast: IV: 100 ml of Omnipaque 350 Oral: 500 ml of Omni 240 10-25ml diluted with water CT Radiation dose: Integrated Dose-length product (DLP) for this visit = 1483 mGy*cm. CT Dose Reduction Employed: Automated exposure control (AEC) COMPARISON: CT runoff 09/24/2023 Abdomen / Pelvis: Liver: No focal hepatic lesions. Spleen: No focal splenic lesion. Pancreas: No focal pancreatic lesions. Adrenals: No mass. Biliary: No bile duct dilation. No gallbladder wall thickening. Kidneys: Symmetric nephrograms bilaterally without hydronephrosis. 7 mm left lower pole calculus. 1.4 cm right lower pole cyst. Vasculature: The celiac axis and SMA are patent. The portal vein and branches, splenic vein, SMV, and hepatic veins are patent. Severe atherosclerotic calcifications of the abdominal aorta without aneurysm. GI tract: No bowel obstruction. Lymph nodes: No lymphadenopathy by CT size criteria. Mesentery/Peritoneum: No ascites, fluid collection, or mass. Pelvis: No mass or fluid collection. Urinary bladder is unremarkable. Bones/Soft tissues: Degenerative changes at L4-L5. No aggressive osseous lesions. Lower thorax: Dedicated CT imaging of the chest was performed concurrently and is dictated separately. Body Joiner (topogram) images: Unremarkable. IMPRESSION IMPRESSION: No metastatic disease in the abdomen or pelvis. Transcribe Date/Time: Jan 25 2024 10:48A Dictated by: BASHIR SUH MD This examination was interpreted and the report reviewed and electronically signed by: BASHIR SUH MD on Jan 25 2024 11:00AM EST Thank you for allowing us to participate in the care of your patient. Should there be any questions regarding this interpretation, please call [phone]. If you are unable to reach us at the number above, please feel free to contact [facility] eRadiology at [phone]. [facility] Abdomen and Pelvis W contrast IVOrdered By: Ccf Provider on 25-44-9719Afjsqlqed ClinicCT CHEST W IVCONon [id number] CHEST W IVCONNormal [facility] Chest W contrast Landy 97-12-5147QLRHVOXVOC: Decreased size of the left lower lobe mass. No new suspicious appearing pulmonary nodules or thoracic lymphadenopathy. Transcribe Date/Time: Jan 25 2024 10:33A Dictated by: BASHIR SUH MD This examination was interpreted and the report reviewed and electronically signed by: BASHIR SUH MD on Jan 25 2024 10:47AM EST Thank you for allowing us to participate in the care of your patient. Should there be any questions regarding this interpretation, please call [phone]. If you are unable to reach us at the number above, please feel free to contact [facility] eRadiology at [phone].DIVISION OF RADIOLOGY* * *Final Report* * * DATE OF EXAM: Jan 25 2024 10:16AM [facility] 0539 - CT CHEST W IVCON / PROCEDURE REASON: multiple diagnoses * * * * Physician Interpretation * * * * RESULT: EXAMINATION: CHEST CT WITH CONTRAST CLINICAL HISTORY: Malignant neoplasm of lung, unspecified laterality, unspecified part of lung (HCC) Malignant neoplasm of upper lobe of left lung (HCC) Technique: Spiral CT acquisition of the chest from the thoracic inlet to the upper abdomen following IV contrast. MQ: CTCWR_5 Contrast: 100 mL Omnipaque [address] Dose-Length Product: 1483 mGy*cm CT Dose Reduction Employed: Automated exposure control (AEC) Comparison: Outside hospital 09/28/2023 RESULT: Lines, tubes, and devices: None. Lung parenchyma and airways: Retained secretions in the central airways. Centrally cavitated left lower lobe mass has decreased in size now measuring 3.0 x 2.2 cm previously 5.3 x 4.3 cm. No new suspicious appearing pulmonary nodules. Pleural space: No pleural effusion or pneumothorax. Lower neck, lymph nodes, and mediastinum: No axillary, supraclavicular, mediastinal or hilar lymphadenopathy by CT size criteria. Heart, pericardium, and thoracic vessels: The heart is normal in size. Trace pericardial fluid. The thoracic aorta and main pulmonary artery are normal in caliber. Atherosclerotic calcifications of the thoracic aorta and coronary arteries. Bones/Soft Tissues: No aggressive osseous lesions. Upper abdomen: Dedicated CT imaging of the abdomen and pelvis was performed concurrently and is dictated separately. Body Joiner (topogram) images: Unremarkable. DIVISION OF RADIOLOGYProvider, [facility] [employer] - 01/25/2024 * * *Final Report* * * DATE OF EXAM: Jan 25 2024 10:16AM [facility] 0539 - CT CHEST W IVCON / PROCEDURE REASON: multiple diagnoses * * * * Physician Interpretation * * * * RESULT: EXAMINATION: CHEST CT WITH CONTRAST CLINICAL HISTORY: Malignant neoplasm of lung, unspecified laterality, unspecified part of lung (HCC) Malignant neoplasm of upper lobe of left lung (HCC) Technique: Spiral CT acquisition of the chest from the thoracic inlet to the upper abdomen following IV contrast. MQ: CTCWR_5 Contrast: 100 mL Omnipaque [address] Dose-Length Product: 1483 mGy*cm CT Dose Reduction Employed: Automated exposure control (AEC) Comparison: Outside hospital 09/28/2023 RESULT: Lines, tubes, and devices: None. Lung parenchyma and airways: Retained secretions in the central airways. Centrally cavitated left lower lobe mass has decreased in size now measuring 3.0 x 2.2 cm previously 5.3 x 4.3 cm. No new suspicious appearing pulmonary nodules. Pleural space: No pleural effusion or pneumothorax. Lower neck, lymph nodes, and mediastinum: No axillary, supraclavicular, mediastinal or hilar lymphadenopathy by CT size criteria. Heart, pericardium, and thoracic vessels: The heart is normal in size. Trace pericardial fluid. The thoracic aorta and main pulmonary artery are normal in caliber. Atherosclerotic calcifications of the thoracic aorta and coronary arteries. Bones/Soft Tissues: No aggressive osseous lesions. Upper abdomen: Dedicated CT imaging of the abdomen and pelvis was performed concurrently and is dictated separately. Body Joiner (topogram) images: Unremarkable. IMPRESSION IMPRESSION: Decreased size of the left lower lobe mass. No new suspicious appearing pulmonary nodules or thoracic lymphadenopathy. Transcribe Date/Time: Jan 25 2024 10:33A Dictated by: BASHIR SUH MD This examination was interpreted and the report reviewed and electronically signed by: BASHIR SUH MD on Jan 25 2024 10:47AM EST Thank you for allowing us to participate in the care of your patient. Should there be any questions regarding this interpretation, please call [phone]. If you are unable to reach us at the number above, please feel free to contact [facility] eRadiology at [phone]. [facility] HospitalComprehensive metabolic 2000 panelOrdered By: Delilah Zaldivar on 18-23-1020Myuanar [Mass/Vol]4.1 g/dL3.9 - 4.9 g/dLSelect [facility] ALP [Catalytic activity/Vol]77 U/L38 - 113 U/LCleveland ClinicALT [Catalytic activity/Vol]18 U/L10 - 54 U/LCleveland ClinicAnion gap [Moles/Vol]13 mmol/L8 - 15 mmol/LCleveland ClinicAST [Catalytic activity/Vol]22 U/L14 - 40 U/LCleveland ClinicBilirubin [Mass/Vol]0.2 mg/dL0.2 - 1.3 mg/dLWeirsdale ClinicCalcium [Mass/Vol]9.3 mg/dL8.5 - 10.2 mg/dLWeirsdale ClinicChloride [Moles/Vol]98 mmol/L 98 - 107 mmol/LCleveland ClinicCO2 [Moles/Vol]31 mmol/LHigh22 - 30 mmol/L [facility] ShawCreatinine [Mass/Vol]0.72 mg/dLLow0.73 - 1.22 mg/dLWeirsdale ClinicGFR/1.73 sq M.predicted among non-blacks MDRD (S/P/Bld) [Vol rate/Area]100 mL/min/{1.73_m2}- PINFCleveland ClinicComment on above:Estimated Glomerular Filtration Rate (eGFR) is calculated using the 2020 CKD-EPI creatinine equation. This equation utilizes serum creatinine, sex, and age as parameters. The creatinine assay has traceable calibration to isotope dilution-mass spectrometry. Refer to KDIGO guidelines for clinical interpretation. In patients with unstable renal function, e.g. those with acute kidney injury, the eGFRmay not accurately reflect actual GFR.Glucose [Mass/Vol]162 mg/kPVmpn26 - 99 mg/dL [facility] on above:The [place] Diabetes Association (ADA) provides guidance for cutoff values for fasting glucose andrandom glucose. The ADA defines fasting as no caloric intake for at least 8 hours. Fasting plasma gl ucose results between 100 to 125 mg/dL indicate increased risk for diabetes (prediabetes). Fasting plasma glucose results greater than or equal to 126 mg/dL meet the criteria for diagnosis of diabetes. In the absence of unequivocal hyperglycemia, results should be confirmed by repeat testing. In a patient with classic symptoms of hyperglycemia or hyperglycemic crisis, random plasma glucose results greater than or equal to 200 mg/dL meet the criteria for diagnosis of diabetes. Reference: Standards of Medical Care in Diabetes 2016, [place] Diabetes Association. Diabetes Care. 2016.39(Suppl 1). Interpretation and review of laboratory resultsAbnormalCleveland ClinicPotassium [Moles/Vol]3.2 mmol/LLow3.7 - 5.1 mmol/LCleveland ClinicProtein [Mass/Vol]6.2 g/dLLow6.3 - 8.0 g/dLKettering Memorial Hospitalodium [Moles/Vol]142 mmol/L136 - 144 mmol/LCleveland ClinicUrea nitrogen [Mass/Vol]14 mg/dL9 - 24 mg/dLVan Wert County Hospitalprehensive metabolic 2000 panelon 29-59-8980Neaheoc [Mass/Vol]4.1 g/dLNormal3.9-4.9CUpper Valley Medical Center on above:Order Comment: Specimen Type: BLOOD SPECIMENOrdering Facility: [facility] Address:[address] [place] [address]Wqrtvuurr By: #### 42051- 8 ####[facility] LABCLIA [id number] [place], [place] [address]DYP [Catalytic activity/Vol]77 U/PZpctux83-288JyczvkclzTwin City Hospital on above:Order Comment: Specimen Type: BLOOD SPECIMENOrdering Facility: [facility] Address:[address] [place] [address]Chjwffkip By: #### 40311-1 ####[facility] LABCLIA [id number] [place], [place] [address]JME [Catalytic activity/Vol]18 U/ABasqyz79-96OnknhufrmTwin City Hospital on above:Order Comment: Specimen Type: BLOOD SPECIMENOrdering Facility: [facility] Address:[address] [place], [place] [address]Performed By: #### 83790- 8 ####[facility] LABCLIA [id number] [facility] JEROME COTTONDIGN[address] [address]ST[facility] MEDICAL [place]ERT[place], [place] [address]Mwydg gap [Moles/Vol]13 mmol/LNormal8-15[facility] on above:Order Comment: Specimen Type: BLOOD SPECIMENOrdering Facility: [facility] Address:[address] [place], [place] [address]Performed By: #### 75829-8 ####[facility] LABCLIA [id number] [place], [place] [address]AST [Catalytic activity/Vol]22 U/IKpuccz86-97CsnpfdeloTwin City Hospital on above:Order Comment: Specimen Type: BLOOD SPECIMENOrdering Facility: [facility] Address:[address] [place], [place] [address]Performed By: #### 00488-3 ####[facility] LABCLIA [id number] [place] [address] Bilirubin [Mass/Vol]0.2 mg/dLNormal0.2-1.3CUpper Valley Medical Center on above:Order Comment: Specimen Type: BLOOD SPECIMENOrdering Facility: [facility] Address:[address] [place], [place] [address]Performed By: #### 42901-7 ####[facility] LABIA [id number] [facility] [place], [place] [address]Qcpcyfp [Mass/Vol]9.3 mg/dLNormal8.5-10.2CUpper Valley Medical Center on above:Order Comment: Specimen Type: BLOOD SPECIMENOrdering Facility: [facility] Address:[address] [place], [place] [address]Performed By: #### 93340-3 ####[facility] LABCLIA [id number] [place], [place] [address]Ecooyqds [Moles/Vol]98 mmol/NSidlde46-808JwqgohnnoTwin City Hospital on above:Order Comment: Specimen Type: BLOOD SPECIMENOrdering Facility: [facility] Address:[address] [place], [place] [address]Performed By: #### 85177- 8 ####[facility] LABCLIA [id number] [place], [place] [address]KL7 [Moles/Vol]31 mmol/PUznu81-50UhwhoctobTwin City Hospital on above:Order Comment: Specimen Type: BLOOD SPECIMENOrdering Facility: [facility] Address:[address] [place], [place] [address]Performed By: #### 69982-8 ####[facility] LABCLIA [id number] [place], [place] [address]Sffgubwpvg [Mass/Vol]0.72 mg/dL Low0.73-1.22[facility] on above:Order Comment: Specimen Type: BLOOD SPECIMENOrdering Facility: [facility] Address:[address] [place], [place] [address]Performed By: #### 66195-6 ####[facility] LABIA [id number] [place] [address] Creatinine and Glomerular filtration rate.predicted panel (S/P/Bld)100 mL/min/1.73m???Normal>=60[facility] on above:Order Comment: Specimen Type: BLOOD SPECIMENOrdering Facility: [facility] Address:[address] [place], [place] [address]Result Comment: Estimated Glomerular Filtration Rate (eGFR) is calculated using the 2020 CKD-EPI cre atinine equation. This equation utilizes serum creatinine, sex, and age as parameters. The creatinine assay has traceable calibration to isotope dilution- mass spectrometry. Refer to KDIGO guidelines for clinical interpretation. In patients with unstable renal function, e.g. those with acute kidney injury, the eGFR may not accurately reflect actual GFR.Performed By: #### 15160-1 ####[facility] LABCLIA [id number] [place], [place] [address]Fvvuaei [Mass/Vol]162 mg/vKQrik65-57WkeivrgzqTwin City Hospital on above:Order Comment: Specimen Type: BLOOD SPECIMENOrdering Facility: [facility] Address:[address] [place] [address]Rddoyy Comment: The [place] Diabetes Association (ADA) provides guidance for cutoff values for fasting glucose and random glucose. The ADA defines fasting as no caloric intake for at least 8 hours. Fasting plasma glucose results between 100 to 125 mg/dL indicate increased risk for diabetes (prediab etes).Fasting plasma glucose results greater than or equal to 126 mg/dL meet the criteria for diagnosis of diabetes. In the absence of unequivocal hyperglycemia, results should be confirmed by repeattesting. In a patient with classic symptoms of hyperglycemia or hyperglycemic crisis, random plasmaglucose results greater than or equal to 200 mg/dL meet the criteria for diagnosis of diabetes.Reference: Standards of Medical Care in Diabetes 2016, [place] Diabetes Association. Diabetes Care. 2016.39(Suppl 1).Performed By: #### 56149-9 ####[facility] LABCLIA [id number] [place], [place] [address]Eivyrbaac [Moles/Vol]3.2 mmol/LLow3.7-5.1CUpper Valley [facility] Center on above:Order Comment: Specimen Type: BLOOD SPECIMENOrdering Facility: [facility] Address:[address] [place] [address]Wrijkfekm By: #### 50902-7 ####[facility] LABIA [id number] [place], [place] [address]Skahtec [Mass/Vol]6.2 g/dLLow 6.3-8.0[facility] on above:Order Comment: Specimen Type: BLOOD SPECIMENOrdering Facility: [facility] Address:[address] [place] [address]Epjcwpaqc By: #### 34268-7 ####[facility] LABCLIA [id number] [place], [place] [address]Jegpjj [Moles/Vol]142 mmol/KZdkwgp538-479VrzhzgtrfTwin City Hospital on above: Order Comment: Specimen Type: BLOOD SPECIMENOrdering Facility: [facility] Address:[address] [place], [place] [address]Performed By: #### 15663- 8 ####[facility] LABCLIA [id number] [place], [place] [address]Qvod nitrogen [Mass/Vol]14 mg/dLNormal9-24[facility] on above:Order Comment: Specimen Type: BLOOD SPECIMENOrdering Facility: [facility] Address:[address] [place], [place] [address]Performed By: #### 80207-8 ####[facility] LABCLIA [id number] [place], [place] [address]Exzcuolrit - Hematology and Cell countson 71-25-4415Iivbxxddg/100 WBC (Bld)0.3 %[facility] ShawErythrocyte distribution width (RBC) [Ratio]15.7 %High11.5 - 15.0 % [facility] ShawHematocrit (Bld) [Volume fraction]30.2 %Low39.0 - 51.0 % [facility] ShawHemoglobin (Bld) [Mass/Vol]10.4 g/dLLow13.0 - 17.0 g/dLTrinity Health SystemH (RBC) [Entitic mass]29.7 pg26.0 - 34.0 pgCAultman Orrville HospitalHC (RBC) [Mass/Vol]34.4 g/dL30.5 - 36.0 g/dLTrinity Health SystemV (RBC) [Entitic vol]86.3 fL80.0 - 100.0 fLCNorwalk Memorial HospitalNeutrophils/100 WBC (Bld)24.4 %[facility] No Panel Informationon 19-54-8988Esjojwsbsuovms and review of laboratory results AbnormalGalion Community HospitalRadiology Study observation (narrative) [facility] metabolic 1997 panelon 17-96-2799Crhkeiy [Mass/Vol]9.3 mg/dL8.6 - 10.3 mg/dLNOCT HealthcareChloride [Moles/Vol]98 mmol/L98 - 110 mmol/L NOMS HealthcareCO2 [Moles/Vol]34 mmol/LHigh20 - 32 mmol/LNOMS Healthcare Creatinine [Mass/Vol]0.81 mg/dL0.70 - 1.35 mg/dLNOMS HealthcareGFR/1.73 sq M.predicted among non-blacks MDRD (S/P/Bld) [Vol rate/Area]96 mL/min/{1.73_m2}> OR = 60 mL/min/1.45p0IAAE HealthcareGlucose [Mass/Vol]134 mg/cOLazl33 - 99 mg/dL [facility] HealthcareComment on above: Fasting reference interval For someone without known diabetes, a glucose value >125 mg/dL indicates that they may have diabetes and this should be confirmed with a follow-up test. Interpretation and review of laboratory resultsAbnormalNOMS HealthcarePotassium [Moles/Vol]3.6 mmol/L3.5 - 5.3 mmol/LNOMS HealthcareSodium [Moles/Vol]141 mmol/L 135 - 146 mmol/LNOMS HealthcareUrea nitrogen [Mass/Vol]16 mg/dL7 - 25 mg/dLNOCT HealthcareUrea nitrogen/Creatinine [Mass ratio]SEE NOTE:NOMS HealthcareComment on above:Not Reported: BUN and Creatinine are within reference range. Performing Organization Information Site ID: QPT Name: [employer] [facility] Address: [address] [place] [address], [address] [place] [id number] Director: Rc Mallory MDAtrium Health [facility]ters[facility] metabolic 1997 panelOrdered By: Lana Alfred on 35-57-3169JILQ HealthcareCNPNon 01-18-2024 CNPNNBlanchard Valley Health SystemCNCOon 73-71-0421FFZDSikjol TextNormal St. Elizabeth HospitalCNPNon 48-87-5559MVUJIlbmviCasrolepzBlanchard Valley Health System CNPNon 15-76-5936GTVVXmqeqcVbkqvluky Clinic ClevelandCBC W Auto Differential panel (Bld)on 78-50-0971Xhwnaonjx (Bld) [#/Vol]0.06 10*3/uLNormal<0.11CUpper [facility] on above:Order Comment: Specimen Type: BLOOD SPECIMENOrdering Facility: [facility] Address:[address] [place], [place] [address]Performed By: #### 02959-0 ####[facility] LABCLIA [id number] [place], [place] [address]Jdttcaxze/100 WBC (Bld)0.7 %NormalTwin City Hospital on above:Order Comment: Specimen Type: BLOOD SPECIMENOrdering Facility: [facility] Address:[address] [place] [address]Performed By: #### 68971-6 ####[facility] LABCLIA [id number] [place], [place] [address]Ndyihiqyakkp cell count method Nom (Bld)AutoNormal [facility] on above:Order Comment: Specimen Type: BLOOD SPECIMENOrdering Facility: [facility] Address:[address] [place], [place] [address]Performed By: #### 85070-5 ####[facility] LABCLIA [id number] [place], [place] [address]Wksmjygkmem (Bld) [#/Vol]2.84 10*3/uLHigh<0.46[facility] on above: Order Comment: Specimen Type: BLOOD SPECIMENOrdering Facility: [facility] Address:[address] [place], [place] [address]Performed By: #### 05467- 8 ####[facility] LABCLIA [id number] [place], [place] [address]Wezyqfdzeoz/100 WBC (Bld)34.5 %NormalTwin City Hospital on above:Order Comment: Specimen Type: BLOOD SPECIMENOrdering Facility: [facility] Address:[address] [place], [place] [address]Performed By: #### 86893-9 ####[facility] LABIA [id number] [place], [place] [address]Kwdyolkkkvl distribution width (RBC) [Ratio]15.3 %High11.5-15.0[facility] on above:Order Comment: Specimen Type: BLOOD SPECIMENOrdering Facility: [facility] Address:[address] [place], [place] [address]Performed By: #### 06961- 8 ####[facility] LABIA [id number] [place], [place] [address]Efzasmfvuc (Bld) [Volume fraction]31.0 %Low39.0-51.0 [facility] on above:Order Comment: Specimen Type: BLOOD SPECIMENOrdering Facility: [facility] Address:[address] [place], [place] [address]Performed By: #### 36479-0 ####[facility] LABIA [id number] [place], [place] [address]Ncborlymsi (Bld) [Mass/Vol]10.4 g/dLLow13.0-17.0[facility] on above:Order Comment: Specimen Type: BLOOD SPECIMENOrdering Facility: [facility] Address:[address] [place], [place] [address]Performed By: #### 40340- 8 ####[facility] LABIA [id number] [place], [place] [address]Zrittvrw granulocytes (Bld) [#/Vol]10*3/uLNormal<0.10 [facility] on above:Order Comment: Specimen Type: BLOOD SPECIMENOrdering Facility: [facility] Address:[address] [place], [place] [address]Performed By: #### 53873-3 ####[facility] LABIA [id number] [place], [place] [address]Cwngpgox granulocytes/100 WBC (Bld)0.2 %NormalTwin City Hospital on above: Order Comment: Specimen Type: BLOOD SPECIMENOrdering Facility: [facility] Address:[address] [place], [place] [address]Performed By: #### 59081- 8 ####[facility] LABCLIA [id number] [place], [place] [address]Omrevcvahrj (Bld) [#/Vol]2.26 10*3/uLNormal1.00-4.00 [facility] on above:Order Comment: Specimen Type: BLOOD SPECIMENOrdering Facility: [facility] Address:[address] [place], [place] [address]Performed By: #### 72054-8 ####[facility] LABCLIA [id number] [place], [place] [address]Tqjsoxqhttw/100 WBC (Bld)27.4 %NormalTwin City Hospital on above:Order Comment: Specimen Type: BLOOD SPECIMENOrdering Facility: [facility] Address:[address] [place], [place] [address]Performed By: #### 23527-8 ####[facility] LABCLIA [id number] [place], [place] [address]YTS (RBC) [Entitic mass]29.4 vmDgjfoz49.0-34.0[facility] on above:Order Comment: Specimen Type: BLOOD SPECIMENOrdering Facility: [facility] Address:[address] [place], [place] [address]Performed By: #### 03515-2 ####[facility] LABCLIA [id number] [place], [place] [address]DQUG (RBC) [Mass/Vol]33.5 g/dTIynxpi28.5-36.0[facility] on above: Order Comment: Specimen Type: BLOOD SPECIMENOrdering Facility: [facility] Address:[address] [place], [place] [address]Performed By: #### 34808- 8 ####[facility] LABCLIA [id number] [place], [place] [address]JKO (RBC) [Entitic vol]87.6 oRNqjjor14.0-100.0[facility] on above:Order Comment: Specimen Type: BLOOD SPECIMENOrdering Facility: [facility] Address:[address] [place], [place] [address]Performed By: #### 44731-9 ####[facility] LABCLIA [id number] [place], [place] [address]Nstfpgdze (Bld) [#/Vol]0.75 10*3/uLNormal<0.87[facility] on above:Order Comment: Specimen Type: BLOOD SPECIMENOrdering Facility: [facility] Address:[address] [place], [place] [address]Performed By: #### 71354- 8 ####[facility] LABCLIA [id number] [place], [place] [address]Yfyirmmsa/100 WBC (Bld)9.1 %NormalTwin City Hospital on above:Order Comment: Specimen Type: BLOOD SPECIMENOrdering Facility: [facility] Address:[address] [place], [place] [address]Performed By: #### 77723-4 ####[facility] LABCLIA [id number] [place], [place] [address]Puqbcykmrmb (Bld) [#/Vol]2.31 10*3/uLNormal1.45-7.50[facility] on above:Order Comment: Specimen Type: BLOOD SPECIMENOrdering Facility: [facility] Address:[address] [place], [place] [address]Performed By: #### 49320-7 ####[facility] LABCLIA [id number] [place], [place] [address]Hkegldoijue/100 WBC (Bld)28.1 %NormalTwin City Hospital on above:Order Comment: Specimen Type: BLOOD SPECIMENOrdering Facility: [facility] Address:[address] [place], [place] [address]Performed By: #### 31268-1 ####[facility] LABCLIA [id number] [place], [place] [address]Flxhkvhsq RBC (Bld) [#/Vol] 10*3/uLNormal<0.01[facility] on above:Order Comment: Specimen Type: BLOOD SPECIMENOrdering Facility: [facility] Address:[address] [place], [place] [address]Performed By: #### 21412-1 ####[facility]ANUVTMARIBEL [facility] LABCLIA [id number] [place], [place] [address]Jdkcwljne RBC/100 WBC (Bld) [Ratio]0.0 /100 WBCNormal [facility] on above:Order Comment: Specimen Type: BLOOD SPECIMENOrdering Facility: [facility] Address:[address] [place], [place] [address]Performed By: #### 15218-5 ####[facility]UVTMARIB[facility] LABCLIA [id number] [place], [place] [address]Urphuyrm mean volume (Bld) [Entitic vol]9.1 fLNormal9.0-12.7CU[facility] on above:Order Comment: Specimen Type: BLOOD SPECIMENOrdering Facility: [facility] Address:[address] [place] [address] Performed By: #### 36327-8 ####[facility] LABCLIA [id number] [place], [place] [address]Kfulubtas (Bld) [#/Vol]347 10*3/oCYaqsbx354-464OvkduijjkTwin City Hospital on above:Order Comment: Specimen Type: BLOOD SPECIMENOrdering Facility: [facility] Address:[address] [place], [place] [address]Performed By: #### 03898-5 ####[facility] LABCLIA [id number] [place], [place] [address]YTJ (Bld) [#/Vol]3.54 10*6/uLLow4.20-6.00[facility] on above:Order Comment: Specimen Type: BLOOD SPECIMENOrdering Facility: [facility] Address:[address] [place], [place] [address]Performed By: #### 94194-8 ####[facility] LABCLIA [id number] [place], [place] [address]BPF (Bld) [#/Vol]8.24 10*3/uL Normal3.70-11.00[facility] on above:Order Comment: Specimen Type: BLOOD SPECIMENOrdering Facility: [facility] Address:[address] [place], [place] [address]Performed By: #### 88059-2 ####[facility] LABCLIA [id number] [place], [place] [address]ICZ CBC W AUTO DIFF BLDon 11-59-8143Kceaqxoti/100 WBC (Bld)0.7 %[facility] ServicesF BASOPHILS # BLD AUTO0.06NIHumboldt General Hospital DIFFERENTIAL METHOD BLDAutoNOMBoone Hospital Center EOSINOPHIL # BLD AUTO2.84HighNINF [facility] LYMPHOCYTES # BLD AUTO2.26NOSSM [facility] MONOCYTES # BLD AUTO0.75NIH[facility] NEUTROPHILS # BLD AUTO2.31[facility] NRBC # BLD AUTO<0.01NIH[facility] NRBC/100 WBC BLD-RTO0/100 WBCTexas County Memorial Hospital PLATELET # BLD [id number] County Memorial Hospital PMV BLD AUTO9.1 fL9.0 - 12.7 fLNOUniversity Health Truman Medical CenterF WBC # BLD AUTO8.24NOCox Walnut LawnEosinophils/100 WBC (Bld)34.5 %NOMS HealthcareErythrocyte distribution width (RBC) [Ratio]15.3 %High 11.5 - 15.0 %NOMS HealthcareHematocrit (Bld) [Volume fraction]31 %Low39.0 - 51.0 %[facility]Barry RoadHemoglobin (Bld) [Mass/Vol]10.4 g/dLLow13.0 - 17.0 g/dLJefferson Memorial Hospital GRANULOCYTES # BLD AUTO<0.03NINFJefferson Memorial Hospital GRANULOCYTES/LEUK NFR BLD AUTO0.2 %[facility]Barry RoadInterpretation and review of laboratory resultsAbnormalSaint Luke's North Hospital–Barry RoadLymphocytes/100 WBC (Bld)27.4 %[facility] CenterH (RBC) [Entitic mass]29.4 pg26.0 - 34.0 pgRusk Rehabilitation CenterHC (RBC) [Mass/Vol]33.5 g/dL30.5 - 36.0 g/dLRusk Rehabilitation CenterV (RBC) [Entitic vol]87.6 fL 80.0 - 100.0 fLSaint Luke's North Hospital–Barry RoadMonocytes/100 WBC (Bld)9.1 %[facility] Neutrophils/100 WBC (Bld)28.1 %[facility]–Barry RoadRBC (Bld) [#/Vol]3.54 10*6/uLLow 4.20 - 6.00 m/uLUTAH [facility] HealthcareSpecimen Type: BLOOD SPECIMEN Order[facility] Facility: [facility] Address: [address] [place] [address] Original Ordering Provider: LO MOREIRACox Walnut LawnCNOVSPon 52-38-6445MNXCBWXrzliaVisxrtpqf Clinic ClevelandComprehensive metabolic 2000 panelon 16-42-0103Hsyzwcz [Mass/Vol]4.2 g/dLNormal3.9-4.9CU[facility] on above:Order Comment: Specimen Type: BLOOD SPECIMENOrdering Facility: [facility] Address:[address] [place] [address]Kflfekola By: #### 10448-6 ####[facility] LABIA [id number] [place], [place] [address]HDQ [Catalytic activity/Vol]72 U/ZSljjfb36-652ObzjrbgfaTwin City Hospital on above:Order Comment: Specimen Type: BLOOD SPECIMENOrdering Facility: [facility] Address:[address] [place], [place] [address]Performed By: #### 97692-9 ####[facility] LABCLIA [id number] [place] [address]PHL [Catalytic activity/Vol]26 U/GRntkjl80-41SrzlqufzkTwin City Hospital on above:Order Comment: Specimen Type: BLOOD SPECIMENOrdering Facility: [facility] Address:[address] [place], [place] [address]Performed By: #### 26570-0 ####[facility] LABCLIA [id number] [place] [address] [place] [place] [address]Dpyxn gap [Moles/Vol]11 mmol/LNormal8-15[facility] on above:Order Comment: Specimen Type: BLOOD SPECIMENOrdering Facility: [facility] Address:[address] [place], [place] [address]Performed By: #### 26803- 8 ####[facility] LABCLIA [id number] [place] COTTOND[address] [place]ERT[place] [address]ARO [Catalytic activity/Vol]20 U/RStuvpd13-55GwthrqpgyTwin City Hospital on above:Order Comment: Specimen Type: BLOOD SPECIMENOrdering Facility: [facility] Address:[address] [place], [place] [address]Performed By: #### 65934-0 ####[facility] LABCLIA [id number] [place] [address]Xwlsamrtw [Mass/Vol]0.2 mg/dLNormal0.2-1.3CU[facility] on above:Order Comment: Specimen Type: BLOOD SPECIMENOrdering Facility: [facility] Address:[address] [place], [place] [address]Performed By: #### 39767- 8 ####[facility] LABCLIA [id number] [place] [address]Ytpuonf [Mass/Vol]8.8 mg/dLNormal8.5-10.2Clevelfirsthealth montgomery memorial hospital Clinic ClevelandComment on above:Order Comment: Specimen Type: BLOOD SPECIMENOrdering Facility: [facility] Address:[address] [place], [place] [address]Performed By: #### 59494-2 ####[facility] LABCLIA [id number] [place], [place] [address]Dbfwpmzz [Moles/Vol]98 mmol/L Mwpkzt90-881VjyizjjzhTwin City Hospital on above:Order Comment: Specimen Type: BLOOD SPECIMENOrdering Facility: [facility] Address:[address] [place], [place] [address]Performed By: #### 94735-8 ####[facility] LABCLIA [id number] [place] [address] CO2 [Moles/Vol]30 mmol/WAtoycf67-62EnfffcefnTwin City Hospital on above: Order Comment: Specimen Type: BLOOD SPECIMENOrdering Facility: [facility] Address:[address] [place], [place] [address]Performed By: #### 32069- 8 ####[facility] LABCLIA [id number] [place], [place] [address]Qjrbiwvddr [Mass/Vol]0.72 mg/dLLow0.73-1.22[facility] on above:Order Comment: Specimen Type: BLOOD SPECIMENOrdering Facility: [facility] Address:[address] [place], [place] [address]Performed By: #### 56063-0 ####[facility] LABCLIA [id number] [place], [place] [address]Zvfutoxwqw and Glomerular filtration rate.predicted panel (S/P/Bld)100 mL/min/1.73m???Normal >=60[facility] on above:Order Comment: Specimen Type: BLOOD SPECIMENOrdering Facility: [facility] Address:[address] [place], [place] [address]Result Comment: Estimated Glomerular Filtration Rate (eGFR) is calculated using the 2020 CKD-EPI creatinine equation. This equation utilizes serum creatinine, sex, and age as parameters. The creatinine assay has traceable calibration to isotope dilution-mass spectrometry. Refer to KDIGO guidelines for clinical interpretation. In patients with unstable renal function, e.g. those with acute kidney injury, the eGFR may not accurately reflect actual GFR.Performed By: #### 51733-0 ####[facility] LABCLIA [id number] [place], [place] [address]Wawbidn [Mass/Vol]139 mg/sFDazt59-26WxxunxdktTwin City Hospital on above:Order Comment: Specimen Type: BLOOD SPECIMENOrdering Facility: [facility] Address:[address] [place], [place] [address]Gmoieq Comment: The [place] Diabetes Association (ADA) provides guidance for cutoff values for fast ing glucose and random glucose. The ADA defines fasting as no caloric intake for at least 8 hours. Fasting plasma glucose results between 100 to 125 mg/dL indicate increased risk for diabetes (prediabetes).Fasting plasma glucose results greater than or equal to 126 mg/dL meet the criteria for diagnosis of diabetes. In the absence of unequivocal hyperglycemia, results should be confirmed by repeattesting. In a patient with classic symptoms of hyperglycemia or hyperglycemic crisis, random plasmaglucose results greater than or equal to 200 mg/dL meet the criteria for diagnosis of diabetes.Reference: Standards of Medical Care in Diabetes 2016, [place] Diabetes Association. Diabetes Care. 2016.39(Suppl 1).Performed By: #### 89884-3 ####[facility] LABCLIA [id number] [place], [place] [address]Ofhrpgjyq [Moles/Vol]3.3 mmol/LLow3.7-5.1CUpper [facility] Center on above:Order Comment: Specimen Type: BLOOD SPECIMENOrdering Facility: [facility] Address:[address] [place], [place] [address]Ajhnphiss By: #### 44796- 8 ####[facility] LABCLIA [id number] [place], [place] [address]Fizjrry [Mass/Vol]6.4 g/dLNormal6.3-8.0[facility] on above:Order Comment: Specimen Type: BLOOD SPECIMENOrdering Facility: [facility] Address:[address] [place], [place] [address]Performed By: #### 31487-2 ####[facility] LABCLIA [id number] [place], [place] [address]Qdecvj [Moles/Vol]139 mmol/L Hwgvug580-244SzxzopdnuTwin City Hospital on above:Order Comment: Specimen Type: BLOOD SPECIMENOrdering Facility: [facility] Address:[address] [place], [place] [address]Performed By: #### 90878-4 ####[facility] LABCLIA [id number] [place] [address] Urea nitrogen [Mass/Vol]13 mg/dLNormal9-24[facility] on above:Order Comment: Specimen Type: BLOOD SPECIMENOrdering Facility: [facility] Address:[address] [place], [place] [address]Performed By: #### 71266-0 ####[facility] LABCLIA [id number] [place], [place] [address]Roynoz SerPl-mCncon 48-83-6378Wwafhmtl [Mass/Vol]7.3 ug/dLNormal4.8-19.5CU[facility] on above:Order Comment: Specimen Type: BLOOD SPECIMENOrdering Facility: [facility] Address:[address] [place], [place] [address]Result Comment: Provided reference range is from 6-10 AM sample collection time.Cortisol Reference Range: 6-10 AM = 4.8-19.5 ug/dL, 4-8 PM = 2.5-11.9 ug/dLPerformed By: #### 3016-3, 2143-6 ####[facility] LABCLIA [id number] [facility] [place]29CB[place]CR[place] [address] [place] TWZCJUSChP3k (Bld)on 02-49-6893Lkvbfqa glucose Estimated from glycated hemoglobin (Bld) [Mass/Vol]123 mg/dLNormal [facility] on above:Order Comment: Specimen Type: BLOOD SPECIMENOrdering Facility: [facility] Address:[address] [place], [place] [address]Result Comment: eAG: (Estimated average glucose) is a calculated value from HgbA1c and is telephone claims representative of the average blood glucose level in the last 2-3 month period.Performed By: #### 52620-1 ####[facility] LABIA [id number] [place] [address] [place] WQHKNPKFoC2g (Bld) [Mass fraction]5.9 %High4.3-5.6 [facility] on above:Order Comment: Specimen Type: BLOOD SPECIMENOrdering Facility: [facility] Address:[address] [place], [place] [address]Result Comment: [place] Diabetes Association guidelines indicate that patients with HgbA1c in the range 5.7-6.4% are at increased risk for development of diabetes, and intervention by lifestyle modification may be beneficial. HgbA1c greater or equal to 6.5% is considered diagnostic of diabetes.Performed By: #### 26431-5 ####[facility] LABIA [id number] [place] [address] [place] TSH SerPl-aCncon 23-54-6438RHK Qn3.050 m[IU]/LNormal0.270-4.200[facility] on above:Order Comment: Specimen Type: BLOOD SPECIMENOrdering Facility: [facility] Address:[address] [place], [place] [address]Performed By: #### 3016-3, 2143-6 ####[facility] LABIA [id number] [place] [address] [place] CNOVon 35-22-5960UTJNYmwsbzDwddmlhev Clinic ClevelandCNPNon 71-85-[address] Elizabeth HospitalCC CBC W AUTO DIFF BLDon 01-84-3922Qemagnmlq/100 WBC (Bld)0.7 %[facility] BASOPHILS # BLD AUTO0.07NINFTexas County Memorial Hospital DIFFERENTIAL METHOD BLDAutoNOMBoone Hospital Center EOSINOPHIL # BLD AUTO1.51HighNINF [facility] LYMPHOCYTES # BLD AUTO2.81[facility] MONOCYTES # BLD AUTO1.00HighNINFTexas County Memorial Hospital NEUTROPHILS # BLD AUTO4.33NOSSM [facility] NRBC # BLD AUTO<0.01NINFTexas County Memorial Hospital NRBC/100 WBC BLD-RTO0.0/100 WBCTexas County Memorial Hospital PLATELET # BLD [id number] County Memorial Hospital PMV BLD AUTO8.5 fLLow9.0 - 12.7 fLTexas County Memorial Hospital WBC # BLD AUTO9.83[facility]Barry RoadEosinophils/100 WBC (Bld)15.4 %[facility]–Barry RoadErythrocyte distribution width (RBC) [Ratio]13.6 % 11.5 - 15.0 %[facility]–Barry RoadHematocrit (Bld) [Volume fraction]31.3 %Low39.0 - 51.0 %[facility]–Barry RoadHemoglobin (Bld) [Mass/Vol]10.6 g/dLLow13.0 - 17.0 g/dLJefferson Memorial Hospital GRANULOCYTES # BLD AUTO0.11HighNIPsychiatric Hospital at Vanderbilt GRANULOCYTES/LEUK NFR BLD AUTO1.1 %[facility]–Barry RoadInterpretation and review of laboratory resultsAbnormalSaint Luke's North Hospital–Barry RoadLymphocytes/100 WBC (Bld)28.6 %[facility] CenterH (RBC) [Entitic mass]29.5 pg26.0 - 34.0 pgRusk Rehabilitation CenterHC (RBC) [Mass/Vol]33.9 g/dL30.5 - 36.0 g/dLRusk Rehabilitation CenterV (RBC) [Entitic vol]87.2 fL 80.0 - 100.0 fLSaint Luke's North Hospital–Barry RoadMonocytes/100 WBC (Bld)10.2 %[facility] Neutrophils/100 WBC (Bld)44.0 %[facility]–Barry RoadRBC (Bld) [#/Vol]3.59 10*6/uLLow 4.20 - 6.00 m/uLSaint Luke's North Hospital–Barry RoadSpecimen Type: BLOOD SPECIMEN [facility]: [facility] Address: [address] [place] [address] Original Ordering Provider: LO SERRATOTexas County Memorial Hospital CBC W AUTO DIFF BLDon 80-98-9151Dflojlowo/100 WBC (Bld)0.4 %[facility] BASOPHILS # BLD AUTO0.03NIHumboldt General Hospital DIFFERENTIAL METHOD BLDAutoNOMBoone Hospital Center EOSINOPHIL # BLD AUTO0.30NIH[facility]old[facility] General Hospital LYMPHOCYTES # BLD AUTO1.65[facility] MONOCYTES # BLD AUTO0.23NIHumboldt General Hospital NEUTROPHILS # BLD AUTO4.46[facility] NRBC # BLD AUTO<0.01NIHumboldt General Hospital NRBC/100 WBC BLD-RTO0.0/100 WBCTexas County Memorial Hospital PLATELET # BLD [id number] County Memorial Hospital PMV BLD AUTO9.8 fL9.0 - 12.7 fLTexas County Memorial Hospital WBC # BLD AUTO6.69NOCox Walnut LawnEosinophils/100 WBC (Bld)4.5 %[facility] Erythrocyte distribution width (RBC) [Ratio]13.0 %11.5 - 15.0 %[facility] Hematocrit (Bld) [Volume fraction]30.4 %Low39.0 - 51.0 %[facility] Hemoglobin (Bld) [Mass/Vol]10.6 g/dLLow13.0 - 17.0 g/dLJefferson Memorial Hospital GRANULOCYTES # BLD AUTO<0.03NIPsychiatric Hospital at Vanderbilt GRANULOCYTES/LEUK NFR BLD AUTO0.3 %[facility]–Barry RoadInterpretation and review of laboratory resultsAbnormal [facility]–Barry RoadLymphocytes/100 WBC (Bld)24.7 %[facility] CenterH (RBC) [Entitic mass]29.9 pg26.0 - 34.0 pgRusk Rehabilitation CenterHC (RBC) [Mass/Vol]34.9 g/dL30.5 - 36.0 g/dLRusk Rehabilitation CenterV (RBC) [Entitic vol]85.9 fL80.0 - 100.0 fLSaint Luke's North Hospital–Barry RoadMonocytes/100 WBC (Bld)3.4 %[facility]–Barry RoadNeutrophils/100 WBC (Bld) 66.7 %[facility]–Barry RoadRBC (Bld) [#/Vol]3.54 10*6/uLLow4.20 - 6.00 m/uLSaint Luke's [facility] Hospital–Barry RoadSpecimen Type: BLOOD SPECIMEN Ordering Facility: [facility] Address: [address] [place] [address] Original Ordering Provider: [facility]OTex[facility] CBC W AUTO DIFF BLDon [id number]/100 WBC (Bld)0.5 %[facility] BASOPHILS # BLD AUTO0.06NIHumboldt General Hospital DIFFERENTIAL METHOD BLDAutoNOMBoone Hospital Center EOSINOPHIL # BLD AUTO0.47[facility] LYMPHOCYTES # BLD AUTO2.79[facility] MONOCYTES # BLD AUTO0.87[facility] NEUTROPHILS # BLD AUTO6.77[facility] NRBC # BLD AUTO<0.01NIHumboldt General Hospital NRBC/100 WBC BLD-RTO0.0/100 WBCTexas County Memorial Hospital PLATELET # BLD LRFH106TJNNTexas County Memorial Hospital PMV BLD AUTO9.2 fL9.0 - 12.7 fLTexas County Memorial Hospital WBC # BLD AUTO11.01[facility]eesportEosinophils/100 WBC (Bld)4.3 %[facility] Erythrocyte distribution width (RBC) [Ratio]13.5 %11.5 - 15.0 %[facility] Hematocrit (Bld) [Volume fraction]35.2 %Low39.0 - 51.0 %[facility] Hemoglobin (Bld) [Mass/Vol]12.0 g/dLLow13.0 - 17.0 g/dLJefferson Memorial Hospital GRANULOCYTES # BLD AUTO0.05NIPsychiatric Hospital [facility] GRANULOCYTES/LEUK NFR BLD AUTO 0.5 %[facility]–Barry RoadInterpretation and review of laboratory resultsAbnormSelect Specialty Hospital - ErieLymphocytes/100 WBC (Bld)25.3 %[facility] (RBC) [Entitic mass] 29.6 pg26.0 - 34.0 pgRusk Rehabilitation CenterHC (RBC) [Mass/Vol]34.1 g/dL30.5 - 36.0 g/dLSaint Luke[facility] Hospital–Barry RoadMCV (RBC) [Entitic vol]86.7 fL80.0 - 100.0 fLSaint Luke[facility]ry Road Monocytes/100 WBC (Bld)7.9 %[facility] RoadNeutrophils/100 WBC (Bld)61.5 %[facility]–Barry RoadRBC (Bld) [#/Vol]4.06 10*6/uLLow4.20 - 6.00 m/uLSaint Luke's North Hospital–Barry Road Specimen Type: BLOOD SPECIMEN Ordering Facility: [facility] Address: [address] [place] [address] Original Ordering Provider: OL MOREIRACox Walnut LawnANES POSTPROC EVALon [id number] POSTPROC EVALHNO ID: [id number] Author: AISHA BRIONES MD Service: Anesthesiology Author Type: Anesthesiologist Type: Anesthesia Postprocedure Evaluation Filed: 11/01/2023 13:14 Note Text: POST ANESTHESIA EVALUATION NOTE : 1955 Procedure Summary Date: 11/01/23 Room / Location: [facility] / [facility] Anesthesia Start: 1210 Anesthesia Stop: 1313 Procedure: BRONCHOSCOPY,RIGID/FLEXIBLE W/ FLUORO,W/ENDOBRONCHIAL ULTRASOUND (EBUS) GUIDED TRANSTRACHEAL/ TRANSBRONCHIAL ASPIRATION/BIOPSY,1 OR 2 MEDIASTINAL AND/OR HILAR LYMPH NODE STATIONS/STRUCTURES (Bronchus) Diagnosis: Lung nodule (Lung nodule [R91.1]) Surgeons: Hugh Craig MD Responsible Provider: Aisha Briones MD Anesthesia Type: MAC, general ASA Status: 3 Anesthesia Type: MAC, general Airway Type: LMA Last Vitals There were no vitals taken for this visit. Post Anesthesia Patient Status Patient Evaluation: PACU. PACU/ICU Patient Condition: stable. Anticipated Disposition: phase 2 then home. Neurological Status: aware and responsive. Pulmonary Status: breathing comfortably on room air Airway Control: returned to baseline unsupported. Cardiovascular Status: stable. Pain Management: clinically adequate Postoperative Hydration: acceptable. Intraoperative Events: no significant anesthesia events Recommendation: continue current plan of care. Anesthesia Observations No Documentation SIGNATURE: Aisha Briones MD PATIENT NAME: Erin Pena DATE: November 01, 2023 TIME: 1:14 PM CSN: [id number] HospitalANES PRE-OPon [id number] PRE-OPHNO ID: [id number] Author: YIMI RODRIGUEZ DO Service: Anesthesiology Author Type: Resident Type: Anesthesia Preprocedure Evaluation Filed: 11/01/2023 11:44 Note Text: ANESTHESIOLOGY DAY OF SURGERY NOTE : 1955 Procedure Information Date/Time: 11/01/23 1200 Procedure: BRONCHOSCOPY,RIGID/FLEXIBLE W/ FLUORO,W/ENDOBRONCHIAL ULTRASOUND (EBUS) GUIDED TRANSTRACHEAL/ TRANSBRONCHIAL ASPIRATION/BIOPSY,1 OR 2 MEDIASTINAL AND/OR HILAR LYMPH NODE STATIONS/STRUCTURES (Bronchus) Location: [facility] / [facility] Surgeons: Hugh Craig MD Estimated body mass index is 28.11 kg/m? as calculated from the following: Height as of 10/26/23: 167.6 cm (5' 6 ). Weight as of 10/26/23: 79 kg (174 lb 2.6 oz). Most recent hematocrit and potassium results: Potassium 3.5 09/28/2023 Relevant Problems No relevant active problems I - PHYSICAL EVALUATION AIRWAY Patient intubated: No. Tracheostomy tube not present Mallampati: I. TM distance: >3 FB. Neck ROM: limited flexion and extension. Mouth opening: adequate. Short neck: no. Thick neck: no Saravia present: yes Lip Bite Test: II DENTAL Dental findings: teeth intact. II - ANESTHESIA PLAN ASA Score: 3 Anesthetic Plan: MAC and general Airway type: LMA The patient is not a current smoker. (quit 7 weeks ago) NPO Status: adequate Anesthetic plan additional comments: TIVA with LMA vs ETT surgeon preference. Beta Valentina Administration of chronic beta valentina medication planned. Monitoring Plan Monitoring plan: standard ASA. Post Procedure Analgesic Plan Postoperative analgesic plan: multimodal analgesia. Informed Consent Anesthetic risks, benefits, alternatives, personnel and consent discussed: yes. Patient / Responsible Alliance Party agrees to proceed: yes Patient / Surrogate agrees to blood products: Yes Significant changes in the patient condition since the History and Physical, not otherwise documented in primary service progress note: no. No vitals data found for the desired time range. No current facility-administered medications on file as of 11/01/2023. Outpatient Medications as of 11/01/2023 Medication Sig albuterol HFA (PROVENTIL HFA, VENTOLIN HFA) 90 mcg/actuation inhaler Inhale 2 Puffs as instructed every 6 hours as needed. propranolol (INDERAL) 20 mg tablet TAKE 1 TABLET BY MOUTH NEEDED FOR ANXIETY ATTACKS ONCE A DAY metFORMIN (GLUCOPHAGE) 850 mg tablet Take 850 mg by mouth. meloxicam (MOBIC) 7.5 mg tablet Take 1 tablet by mouth once daily. losartan (COZAAR) 100 mg tablet Take 100 mg by mouth. atorvastatin (LIPITOR) 40 mg tablet Take 40 mg by mouth. aspirin, enteric coated (ASPIRIN, ENTERIC COATED) 81 mg EC tablet Take 81 mg by mouth. nicotine (NICODERM) 21 mg/24 hr Apply 1 Patch as directed. diazePAM (VALIUM) 5 mg tablet Take 5 mg by mouth. levothyroxine (SYNTHROID) 175 mcg tablet Take 175 mcg by mouth daily before breakfast. ascorbic acid (VITAMIN C) 500 mg tablet Take 500 mg by mouth once daily. HYDROcodone-Acetaminophen (NORCO) 7.5-325 mg per tablet Take 1 tablet by mouth every 6 hours as needed. sildenafil (VIAGRA) 100 mg tablet Take 100 mg by mouth at bedtime as needed. terazosin (HYTRIN) 1 mg capsule Take 1 mg by mouth. traZODone (DESYREL) 50 mg tablet Take 50 mg by mouth. vitamin E, dl,tocopheryl acet, (VITAMIN E, DL, ACETATE,) 45 mg (100 unit) capsule Take 400 Units by mouth. krill oil 500 mg cap Take by mouth as directed. hydroCHLOROthiazide 50 mg tablet Take 50 mg by mouth. glucosamine HCl 750 mg tab Take by mouth. cholecalciferol (VITAMIN D3) 1,000 unit tab tablet Take 1,000 Units by mouth. clopidogrel (PLAVIX) 75 mg tablet Take 75 mg by mouth. (Patient not taking: Reported on 10/26/2023) indomethacin ER 75 mg CR capsule Take 1 capsule by mouth daily with breakfast. CYANOCOBALAMIN, VITAMIN B-12, (VITAMIN B-12 ORAL) Take by mouth. rosuvastatin (CRESTOR) 40 mg tablet Take 40 mg by mouth once daily. multivitamin tablet Take 1 tablet by mouth once daily. I have interviewed and examined the patient. I have reviewed the medical record and/or the pre-anesthesia evaluation, pertinent labs, and test results. This contains updated information obtained within 48 hours of Surgery/Procedure. SIGNATURE: Yimi Rodriguez DO PATIENT NAME: Erin Pena DATE: November 01, 2023 TIME: 11:43 AM CSN: [id number] HospitalANES PRE-OPHNO ID: [id number] Author: AISHA BRIONES MD Service: Anesthesiology Author Type: Anesthesiologist Type: Anesthesia Preprocedure Evaluation Filed: 11/01/2023 11:33 Note Text: ANESTHESIOLOGY DAY OF SURGERY NOTE : 1955 Procedure Information Date/Time: 11/01/23 1200 Procedure: BRONCHOSCOPY,RIGID/FLEXIBLE W/ FLUORO,W/ENDOBRONCHIAL ULTRASOUND (EBUS) GUIDED TRANSTRACHEAL/ TRANSBRONCHIAL ASPIRATION/BIOPSY,1 OR 2 MEDIASTINAL AND/OR HILAR LYMPH NODE STATIONS/STRUCTURES (Bronchus) Location: [facility] / [facility] Surgeons: Hugh Craig MD Estimated body mass index is 28.11 kg/m? as calculated from the following: Height as of 10/26/23: 167.6 cm (5' 6 ). Weight as of 10/26/23: 79 kg (174 lb 2.6 oz). Most recent hematocrit and potassium results: Potassium 3.5 09/28/2023 Relevant Problems No relevant active problems I - PHYSICAL EVALUATION AIRWAY Patient intubated: No. Tracheostomy tube not present Mallampati: II. TM distance: >3 FB. Neck ROM: limited flexion and extension. Mouth opening: adequate. Short neck: no. Thick neck: no DENTAL Normal dental observations. Dental findings: teeth intact and chipped. Additional exam findings: yes. CARDIOVASCULAR Normal cardiovascular observations. Rhythm: regular Rate: normal PULMONARY Normal pulmonary observations. Breath sounds clear to auscultation. II - ANESTHESIA PLAN ASA Score: 3 Anesthetic Plan: general Airway type: LMA The patient is not a current smoker. NPO Status: adequate Beta Valentina Monitoring Plan Monitoring plan: standard ASA. Post Procedure Analgesic Plan Postoperative analgesic plan: multimodal analgesia. Informed Consent Anesthetic risks, benefits, alternatives and personnel discussed. Consent obtained from: patient. Anesthetic risks, benefits, alternatives, personnel and consent discussed: yes. Patient / Responsible Alliance Party agrees to proceed: yes Patient / Surrogate agrees to blood products: yes Significant changes in the patient condition since the History and Physical, not otherwise documented in primary service progress note: no. Potential Anesthesia issues that may suggest increased risk of complications or contraindication to planned procedure: none. No vitals data found for the desired time range. No current facility-administered medications on file as of 11/01/2023. Outpatient Medications as of 11/01/2023 Medication Sig albuterol HFA (PROVENTIL HFA, VENTOLIN HFA) 90 mcg/actuation inhaler Inhale 2 Puffs as instructed every 6 hours as needed. propranolol (INDERAL) 20 mg tablet TAKE 1 TABLET BY MOUTH NEEDED FOR ANXIETY ATTACKS ONCE A DAY metFORMIN (GLUCOPHAGE) 850 mg tablet Take 850 mg by mouth. meloxicam (MOBIC) 7.5 mg tablet Take 1 tablet by mouth once daily. losartan (COZAAR) 100 mg tablet Take 100 mg by mouth. atorvastatin (LIPITOR) 40 mg tablet Take 40 mg by mouth. aspirin, enteric coated (ASPIRIN, ENTERIC COATED) 81 mg EC tablet Take 81 mg by mouth. nicotine (NICODERM) 21 mg/24 hr Apply 1 Patch as directed. diazePAM (VALIUM) 5 mg tablet Take 5 mg by mouth. levothyroxine (SYNTHROID) 175 mcg tablet Take 175 mcg by mouth daily before breakfast. ascorbic acid (VITAMIN C) 500 mg tablet Take 500 mg by mouth once daily. HYDROcodone-Acetaminophen (NORCO) 7.5-325 mg per tablet Take 1 tablet by mouth every 6 hours as needed. sildenafil (VIAGRA) 100 mg tablet Take 100 mg by mouth at bedtime as needed. terazosin (HYTRIN) 1 mg capsule Take 1 mg by mouth. traZODone (DESYREL) 50 mg tablet Take 50 mg by mouth. vitamin E, dl,tocopheryl acet, (VITAMIN E, DL, ACETATE,) 45 mg (100 unit) capsule Take 400 Units by mouth. krill oil 500 mg cap Take by mouth as directed. hydroCHLOROthiazide 50 mg tablet Take 50 mg by mouth. glucosamine HCl 750 mg tab Take by mouth. cholecalciferol (VITAMIN D3) 1,000 unit tab tablet Take 1,000 Units by mouth. clopidogrel (PLAVIX) 75 mg tablet Take 75 mg by mouth. (Patient not taking: Reported on 10/26/2023) indomethacin ER 75 mg CR capsule Take 1 capsule by mouth daily with breakfast. CYANOCOBALAMIN, VITAMIN B-12, (VITAMIN B-12 ORAL) Take by mouth. rosuvastatin (CRESTOR) 40 mg tablet Take 40 mg by mouth once daily. multivitamin tablet Take 1 tablet by mouth once daily. I have interviewed and examined the patient. I have reviewed the medical record and/or the pre-anesthesia evaluation, pertinent labs, and test results. This contains updated information obtained within 48 hours of Surgery/Procedure. SIGNATURE: Aisha Briones MD PATIENT NAME: Erin Pena DATE: November 01, 2023 TIME: 11:33 AM CSN: [id number] PROG[facility]2023 [facility] ID: [id number] Author: EMMA HARVEY RN Service: Nursing Author Type: Registered Nurse Type: Nursing Progress Note Filed: 11/01/2023 11:06 Note Text: PATIENT EDUCATION TOPIC: PROCEDURE / SURGERY: Procedure/Surgery: BRONCH PATIENT NAME: Erin Pena PATIENT LOCATION: [facility] PO[facility] READINESS TO LEARN COGNITIVE ABILITY: Alert and oriented MOTIVATION TO LEARN: Interested FAMILY SUPPORT: None - Unavailable/disinterested INSTRUCTION PROVIDED TO: Patient PATIENT LEARNS BEST BY: Individual Instruction FACTORS AFFECTING LEARNING: None PHYSICAL LIMITATIONS AFFECTING LEARNING: None LEARNING RESPONSE DIAGNOSIS: ADULT: BRONCH PATIENT/FAMILY RESPONSE: Verbalizes understanding of: PRE-PROCEDURE INSTRUCTIONS-Correct action to take to follow pre-procedure instructions METHOD OF INSTRUCTION: Individual instruction FOLLOW-UP PLAN: Complete - No need for follow-up INSTRUCTIONAL AIDS USED: NA SUPPLEMENTAL MATERIAL PROVIDED TO PATIENT: REFERRAL (RECOMMENDATION): None Electronically Signed By: Emma HarveyV[facility] EDon [id number] EDO ID: [id number] Author: SANDRA JC RN Service: Nursing Author Type: Registered Nurse Type: Patient Education Filed: 11/01/2023 14:25 Note Text: PATIENT EDUCATION TOPIC: PROCEDURE / SURGERY: Post-op Teaching: Med Administration and Symptom Management PATIENT NAME: Erin Pena PATIENT LOCATION: [facility] PO[facility] READINESS TO LEARN COGNITIVE ABILITY: Alert and oriented MOTIVATION TO LEARN: Eager FAMILY SUPPORT: High - Very involved in pt care INSTRUCTION PROVIDED TO: Patient and Spouse PATIENT LEARNS BEST BY: Individual Instruction Written Instruction - Hand-outs Verbal Instruction FACTORS AFFECTING LEARNING: None PHYSICAL LIMITATIONS AFFECTING LEARNING: None LEARNING RESPONSE DIAGNOSIS: ADULT: Well Adult PATIENT/FAMILY RESPONSE: Verbalizes understanding of: POST-PROCEDURE INSTRUCTIONS-Correct actions to take to reduce post procedure complications METHOD OF INSTRUCTION: Individual instruction Written instruction/Handouts Verbal instruction FOLLOW-UP PLAN: Complete - No need for follow-up INSTRUCTIONAL AIDS USED: NA SUPPLEMENTAL MATERIAL PROVIDED TO PATIENT: None REFERRAL (RECOMMENDATION): None Electronically Signed By: Sandra CliffordJamaica [facility] [id number] PROGHNO ID: [id number] Author: TOMMIE MCFADDEN, RN Service: Pulmonary Disease Author Type: Registered Nurse Type: Nursing Progress Note Filed: 10/31/2023 14:58 Note Text: AMBULATORY PATIENT EDUCATION NOTE TOPIC: pre-procedure instructions READINESS TO LEARN COGNITIVE ABILITY: Alert and oriented MOTIVATION TO LEARN: Eager FAMILY SUPPORT: None - Unavailable/disinterested INSTRUCTION PROVIDED TO: Patient and family member PATIENT LEARNS BEST BY: Individual Instruction Verbal Instruction FACTORS AFFECTING LEARNING: None PHYSICAL LIMITATIONS AFFECTING LEARNING: None LEARNING RESPONSE DIAGNOSIS: LLL node METHOD OF INSTRUCTION: Individual instruction Verbal instruction PATIENT / FAMILY RESPONSE: Verbalizes understanding of: PRE-PROCEDURE INSTRUCTIONS-Correct action to take to follow pre-procedure instructions FOLLOW-UP PLAN: Complete - No need for follow-up SUPPLEMENTAL MATERIAL: None REFERRAL (RECOMMENDATION): None Electronically Signed By: Tommie Mcfadden RN In Department: [facility] ENDOSCOPY - ENDO Time spent on patient education: 10 minutes.[facility] CT SKULL TO THIGHon [id number] CT SKULL TO THIGHPET CT SKULL TO THIGH FDG PET/CT INDICATION: Left lung mass, biopsy-proven invasive squamous cell carcinoma. Staging. PRIOR PET/CT: None available CORRELATIVE ANATOMIC IMAGING: None PROCEDURE: PET/CT was performed following intravenous administration of 16 mCi F-18 FDG with images obtained from the skull base through the mid thighs. Fasting glucose was 102 mg/dL at the time of administration. CT was performed utilizing free breathing technique and nondiagnostic collimation for the purposes attenuation correction and localization of radiotracer activity. Blood pool SUV 2.16 Background liver SUV 3.00 FINDINGS: Overall PET and CT image quality and inter-modality registration are satisfactory. Head and Neck: Physiologic FDG uptake within the head and neck. Thorax: Abnormal uptake corresponding to the left upper lobe lung mass and adjacent contiguous nodular component maximum SUV 22.90. No additional foci of abnormal uptake in the chest. No enlarged mediastinal lymph nodes. Abdomen and Pelvis: Physiologic FDG uptake within the abdomen/pelvis. Osseous Structures: Physiologic FDG uptake within the osseous structures. Lower Extremities: No significant findings. IMPRESSION: 1. Abnormal uptake confined to the left upper lobe mass without evidence for metastatic disease. Finalized by Felix Lopez MD on 10/21/2023 1:16 [facility] BIOPSY LUNG PERC LTon [id number] BIOPSY LUNG PERC LTIR BIOPSY LUNG PERC LT CLINICAL INDICATION: Left lower lobe lung mass COMPARISON: CT scan 09/28/2023 TECHNIQUE: Procedure performed by Interventional Radiologist Odette Baptiste M.D. All CT scans at this facility use dose modulation, iterative reconstruction, and/or weight based dosing when appropriate to reduce radiation dose to as low as reasonably achievable. CONSENT: The reason for the procedure was discussed with the patient. The procedure, expectations, risks, benefits, options and alternatives were discussed. All of the patient?s questions were answered. The patient understands that the results cannot be guaranteed. The procedure is indicated and the risks are acceptable. Consent was obtained. SEDATION: The patient?s cardiopulmonary status was evaluated and the patient is suitable for moderate sedation. During the course of the procedure, the patient was sedated with Fentanyl 100 mcg intravenously and Versed 1 mg intravenously, while being monitored with ECG, blood pressure monitoring, and pulse oximeter by appropriately trained personnel, for a total sedation time of 30 minutes. Following the procedure, the patient was recovered according to the moderate sedation policy. PROCEDURE: CT-guided core biopsy left lower lobe pulmonary mass Details of procedure: Patient placed in the prone position on the CT table. A CT scan of the chest was performed. An appropriate skin entry site was marked over the left lower lobe mass. The skin was prepped and draped inusual sterile fashion. 1% lidocaine without epinephrine was used as a local anesthetic. At that time, under CT guidance, a 17-gauge coaxial needle was advanced into the left lower lobe mass. Once needle position was confirmed, the stylette was removed and a total of 4 18-gauge core biopsy samples were obtained and placed in formalin. The needle was then removed and a sterile dressing applied. A final CT scan of the chest was performed. The patient tolerated the procedure well and there are no im mediate complications. FINDINGS: 1. Redemonstration of partially cavitary mass at the superior segment left lower lobe measuring up to [address]-guided percutaneous needle access into the left lower lobe mass. A total of 4 18-gauge core biopsy samples were obtained and placed in formalin. 3. CT of the chest postbiopsy demonstrates no evidence of immediate complication. No pneumothorax. IMPRESSION: Successful CT-guided core biopsy left lower lobe pulmonary mass. Finalized by Odette Baptiste MD on 10/05/2023 3:33 PMNProtestant Deaconess Hospitalurgical Pathologyon [id number] PathologyNoUniversity Hospitals Cleveland Medical CenterComment on above:Result Comment: [employer] [facility] [address] [place] [address] Surgical Pathology Consultation Amended Report Patient Name:ERIN PENA:1955 (Age: 67)Gender:MTaken:10/05/2023eported:10/11/2023hysician(s):Kassidy Villasenor CNP ([phone])Copy To:ODETTE BAPTISTE MDAession #:[id number]. Rec. #:[id number]: #[id number] Amended Final Pathologic Diagnosis Lung, left lower lobe, core biopsy: INVASIVE SQUAMOUS CELL CARCINOMA. Comment In order to classify the neoplasm, immunohistochemical staining is performed on 1B and demonstratesthat the tumor cells are diffusely positive for AE1/AE3 and p40, and negative for TTF-1 and Napsin A with adequate controls, supporting the above diagnosis. This amendment is to correct an error for tumor location. On the requisition form, the tumor location was left upper lobe. After the case was signed out, an oncology database security expert, Liliya Santana, notified me that the tumor should be located in left lower lobe. Report Electronically Signed Out rg/4Rbrianne Mendoza MD Interpretation performed at [facility], [address] [place] [address], [place] [address], License number: [id number]. Clinical History Left upper lobe mass. Gross Description Received in formalin labeled VOLLMAR, left lung biopsy are six qwy-ifxuv-exel barger delicate needle core segments of soft tissue with adherent hemorrhagic material, from 0.6-1.4 cm in length. The specimens are submitted entirely in cassettes A and B. (2, ns, [id number], m5) JKH jkh/10/05/2023SSI Specimen(s) Received Left lung core biopsy Fee Codes(s): 1; 36475, 25396, 97599(3)XR CHEST 1 VWon [id number] CHEST 1 VWXR CHEST 1 VW Single view chest History: Status post lung biopsy Comparison: X-ray 10/06/2011 Findings: Single portable view of the chest. Cardiomediastinal silhouette and pulmonary vasculature are within normal limits. Left upper lobe lung mass. Right lung is clear. No pneumothorax. Impression: Left upper lobe lung mass, no definite pneumothorax status post biopsy. Finalized by Enoc Chen on 10/05/2023 3:30 PMNormalUniversity Hospitals Parma Medical Center COVID-19 PCRon [id number], NAANot DetectedNormalNot DetectedThe Dayton Osteopathic HospitalComment on above:Result Comment: This nucleic acid amplification test was developed and its performance characteristics determined by [employer]. Nucleic acid amplification tests include PCR and TMA. This test has not been FDA cleared or approved. This test has been authorized by FDA under an Emergency Use Authorization (EUA). This test is only authorized for the duration of time the declaration that circumstances exist justifying the authorization of the emergency use of in vitro diagnostic tests for detection of SARS-CoV-2 virus and/or diagnosis of COVID-19 infection under section 564(b)(1) of the Act, 21 U.S.C. 360bbb-3(b) (1), unless the authorization is terminated or revoked sooner. When diagnostic testing is negative, the possibility of a false negative result should be considered in the context of a patient's recent exposures and the presence of clinical signs and symptoms consistent with COVID-19. 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 COMPARISON: None. ACCESSION NUMBER(S): [id number] ORDERING CLINICIAN: MOLLY RAY TECHNIQUE: T2, FLAIR, DWI, gradient echo T2 and T1 weighted images of brain were acquired without intravenous contrast administration. Precontrast high-resolution T1 weighted and T2 weighted images were acquired through the region of internal auditory canals. Post contrast T1 weighted images of the whole brain, high-resolution T1 coronal images through the internal auditory canals and fat saturated T1 axial images through the internal auditory canals were acquired after administration of 16 cc MultiHance gadolinium based intravenous contrast. FINDINGS: CSF Spaces: The ventricles, sulci and basal cisterns are within normal limits. Parenchyma: There is no diffusion restriction abnormality to suggest acute infarct. There are approximately 15 10 18 abnormal white matter hyperintensities scattered in the hemispheres on FLAIR and T2 images. There is a 5 mm wide by 12 mm AP area of encephalomalacia in mid left temporal lobe with slight surrounding hyperintensity on FLAIR and T2 images. The enhancement pattern is within normal limits. There is no mass effect or midline shift. There is no hemorrhage. IAC region: There is no focus of abnormal enhancement or mass effect in bilateral cerebellopontine angle cisterns. There is no focus of abnormal enhancement within bilateral internal auditory canals. Bilateral inner ear structures demonstrate expected signal and postcontrast appearance. Paranasal Sinuses and Mastoids: Visualized paranasal sinuses and mastoid air cells are unremarkable. IMPRESSION: 1. unremarkable MRI of bilateral internal auditory canals. 2. There are scattered punctate hemispheric white matter signal abnormalities that are nonspecific and can be seen with most often in chronic small vessel ischemic disease including hypertension and diabetes. Interpreted within [place], [place] Electronically signed by: SHAHANA RAY MD, PHDNormClear View Behavioral HealthRENAL FUNCTION PANELon [id number] [Mass/Vol]4.6 g/dLNormal3.4 - 5.0Community Medical CenterComment on above:Performed By: #### RENAL #### [facility] [address] [place], [place] [address]Ypccn gap [Moles/Vol]13 mmol/AJvfamk81 - 20[facility] Medical CenterComment on above:Performed By: #### RENAL #### [facility] [address] [place], [place] [address]Zrbkxqx [Mass/Vol]9.8 mg/dLNormal8.6 - 10.6Community Medical CenterComment on above:Performed By: #### RENAL #### [facility] [address] [place], [place] [address]Vxegxuqf [Moles/Vol]100 mmol/NRmeaml80 - 107[facility] Medical CenterComment on above:Performed By: #### RENAL #### [facility] [address] [place], [place] [address]Kbisutkmeu [Mass/Vol]0.60 mg/dLNormal0.50 - 1.30Community Medical CenterComment on above:Performed By: #### RENAL #### [facility] [address] [place], [place] [address]VJB-MQHIQUG AM.>60Normal>60Community Medical CenterComment on above:Result Comment: CALCULATIONS OF ESTIMATED GFR ARE PERFORMED USING THE MDRD STUDY EQUATION FOR THE IDMS-TRACEABLE CREATININE METHODS. CLIN CHEM 2007;53:766-72Performed By: #### RENAL #### [facility] [address] [place], [place] [address]PPJ-SBJ AM.>60Normal>60[facility] Comment on above:Performed By: #### RENAL #### [facility] [address] [place], [place] [address]Qacqukx [Mass/Vol]118 mg/mFEhrf40 - 99[facility] Medical CenterComment on above:Performed By: #### RENAL #### [facility] [address] [place], [place] [address]MTO3 (Bld) [Moles/Vol]30 mmol/KUnwzlz92 - 32Community Medical CenterComment on above:Performed By: #### RENAL #### [facility] [address] [place], [place] [address]Ggvdozslj [Mass/Vol]3.6 mg/dLNormal2.5 - 4.9Community Medical CenterComment on above:Result Comment: The performance characteristics of phosphorus testing in heparinized plasma have been validated by the individual laboratory site where testing is performed. Testing on heparinized plasma is not approved by the FDA; however, such approval is not necessary.Performed By: #### RENAL #### [facility] [address] [place], [place] [address]Yehqojgaz [Moles/Vol]3.9 mmol/LNormal3.5 - 5.3Community Medical CenterComment on above:Performed By: #### RENAL #### [facility] [address] [place], [place] [address]Wmevsn [Moles/Vol]139 mmol/PFotflk564 - 145Community Medical CenterComment on above:Performed By: #### RENAL #### [facility] [address] [place], [place] [address]Rumh nitrogen [Mass/Vol]13 mg/dLNormal6 - 23Community Medical CenterComment on above:Performed By: #### RENAL #### [facility] [address] [place] [address] Vital Signs Date TimeVital SignValuePerforming [id number] 09:25-0400Body .64 cmDick Miranda MD Work Phone: [facility]10-06-2025 09:25-0400 Body mass index (BMI) [Ratio]31.4 kg/m2Dick Miranda MD Work Phone: [facility]10-06-2025 09:25-0400 Body ganpugowfkr12.3 [degF]Dick Miranda MD Work Phone: [facility]10-06-2025 09:25-0400 Body lisnei64.16 kgDick Miranda MD Work Phone: 1(915)532-[address] [place], [place] 6722810-06-2025 09:25-0400 Diastolic blood igocizgq42 mm[Hg]Dick Miranda MD Work Phone: 1(818)956-[address] [place], [place] 6722810-06-2025 09:25-0400 Heart rate71 /Drea Miranda MD Work Phone: 1(516)[address]10-06-2025 09:25-0400 Respiratory rate16 /Drea Miranda MD Work Phone: 1(574)[address]10-06-2025 09:25-0400 SaO2% (BldA) [Mass fraction]94 %Dick Miranda MD Work Phone: 1(215)[address]10-06-2025 09:25-0400 Systolic blood kzbafnyw749 mm[Hg]Dick Miranda MD Work Phone: 1(574)[address]09-17-2025 13:45-0400 Body .64 cmBasia Vega MD Work Phone: 1(703)999-[address] [place], [place] [address]609-17-2025 13:45-0400 Body mass index (BMI) [Ratio]29.8 kg/a5IlxvhxchBasia Vega MD Work Phone: [facility]09-17-2025 13:45-0400 Body givtwb70.91 kgBasia Vega MD Work Phone: 1(459)724-[address] [place], [place] 2627609-17-2025 13:45-0400 Diastolic blood sruoxtrl20 mm[Hg]Basia Vega MD Work Phone: [address] [place], [place] 0133709-17-2025 13:45-0400 Heart rate81 /Penelope Vega MD Work Phone: [facility]09-17-2025 13:45-0400 Respiratory rate18 /Penelope Vega MD Work Phone: [facility]09-17-2025 13:45-0400 SaO2% (BldA) [Mass fraction]95 %Basia Vega MD Work Phone: [facility]09-17-2025 13:45-0400 Systolic blood fakrcxfm205 mm[Hg]Basia Vega MD Work Phone: [facility]09-05-2025 11:44-0400 Body mass index (BMI) [Ratio]29.03 kg/q5YkdlbLo Hancock MD Work Phone: [facility]09-05-2025 11:44-0400Body temperature 97 [degF]Lo Hancock MD Work Phone: [facility]09-05-2025 11:44-0400Body fyseyd52.47 kgLo Hancock MD Work Phone: [facility]09-05-2025 11:44-0400Diastolic blood mm[Hg]Lo Hancock MD Work Phone: [facility]09-05-2025 11:44-0400Heart rate63 /min Lo Hancock MD Work Phone: [facility]09-05-2025 11:44-0400Respiratory rate 16 /minLo Hancock MD Work Phone: [facility]09-05-2025 11:44-9839BmL7% (BldA) [Mass fraction]97 %Lo Hancock MD Work Phone: [facility]09-05-2025 11:44-0400Systolic blood bwrlyitv789 mm[Hg]Lo Hancock MD Work Phone: [facility]08-25-2025 11:57-0400Diastolic blood emwmxxxd41 mm[Hg]Basia Vega MD Work Phone: [facility]08-25-2025 11:57-0400 Heart rate71 /Penelope Vega MD Work Phone: 1(437)[address]27 [address]08-25-2025 11:57-0400 Respiratory rate17 /Penelope Vega MD Work Phone: 1(529)[address]08-25-2025 11:57-0400 SaO2% (BldA) [Mass fraction]97 %Basia Vega MD Work Phone: 1(788)87827 [address]08-25-2025 11:57-0400 Systolic blood judhbijh299 mm[Hg]Basia Vega MD Work Phone: 1(840)54327 [address]08-25-2025 09:00-0400 Body cenxtyerydz92.7 [degF]Basia Vega MD Work Phone: 1(379)07627 [address]08-25-2025 06:00-0400 Body .4 kgBasia Vega MD Work Phone: 1(050)[address]27 [address]08-23-2025 20:38-0400 Body .8 [degF]Basia Vega MD Work Phone: 1(166)417[address]08-23-2025 20:38-0400 Diastolic blood ikwlryga13 mm[Hg]Basia Vega MD Work Phone: 1(183)06227 [address]08-23-2025 20:38-0400 Heart rate66 /Penelope Vega MD Work Phone: 1(882)8[address]08-23-2025 20:38-0400 Respiratory rate18 /Penelope Vega MD Work Phone: 1(746)64727 [address]08-23-2025 20:38-0400 SaO2% (BldA) [Mass fraction]95 %Basia Vega MD Work Phone: 1([phone])[address]08-23-2025 20:38-0400 Systolic blood itxhulqi829 mm[Hg]Basia Vega MD Work Phone: [facility]08-23-2025 14:10-0400 Body pssywy345.64 cmBasia Vega MD Work Phone: [facility]08-23-2025 14:10-0400 Body zylhtf83.7 kgBasia Vega MD Work Phone: [facility]08-13-2025 10:30-0400 Body artogx098.6 cmDick Miranda MD Work Phone: [facility] RoadRxvhhyrgdl02-07-6766 10:30-0400Body mass index (BMI) [Ratio]28.57 kg/m2Dick Miranda MD Work Phone: [facility] RoadDokinvxqng79-27-4994 10:30-0400Body temperature 97.81 [degF]Dick Miranda MD Work Phone: [facility] RoadFhqjzunldc96-45-2156 10:30-0400Body .29 kgDick Miranda MD Work Phone: [facility] RoadLwluezgrws63-17-5517 10:30-0400Diastolic blood xgmiqjqx01 mm[Hg]Dick Miranda MD Work Phone: [facility] RoadNuygjmgnkg36-12-8749 10:30-0400Heart rate64 /min Dick Miranda MD Work Phone: [place] [address]Lxberizsbu06-45-4300 10:30-0400Respiratory rate20 /minDick Miranda MD Work Phone: [place] [address]Ohltislzsg53-86-8454 10:30-9611SlY8% (BldA) [Mass fraction]95 %Dick Miranda MD Work Phone: [place] [address]Tsrklhvzhy69-20-5563 10:30-0400Systolic blood joqsnkxr957 mm[Hg]Dick Miranda MD Work Phone: [facility] RoadUfyuzcekab04-06-4255 13:36-0400Body pjmazu737.6 Irvin Garcia MD Work Phone: 1(419)[address] [place], [place] [address]407-23-2025 13:36-0400Body mass index (BMI) [Ratio]28.41 kg/z8IimhlkifwkbNeha Garcia MD Work Phone: 1(191)[address]07-23-2025 13:36-0400Body ylqrof30.83 kgNeha Garcia MD Work Phone: 1(711)[address]176 [address]07-23-2025 13:36-0400Diastolic blood invuqtpr10 mm[Hg]Neha Garcia MD Work Phone: 1(541)[address] [place], [place] 64[address]407-23-2025 13:36-0400Heart rate 64 /minNeha Garcia MD Work Phone: 1(672)[address] [place], [place] [address]80407-23-2025 13:36-1570ClU2% (BldA) [Mass fraction]95 %Neha Garcia MD Work Phone: 1(756)[address] [place], [place] 6480407-23-2025 13:36-0400Systolic blood olixewkw138 mm[Hg]Neha Garcia MD Work Phone: 1(533)[address]06-27-2025 14:23-0400Body mass index (BMI) [Ratio]28.93 kg/m2Jack Hoang MD Work Phone: [facility]06-27-2025 14:23-0400Body temperature 98.2 [degF]Jack Hoang MD Work Phone: [facility]06-27-2025 14:23-0400Body .2 kgJack Hoang MD Work Phone: [facility]06-27-2025 14:23-0400Diastolic blood gkgveomb29 mm[Hg]Jack Hoang MD Work Phone: [facility]06-27-2025 14:23-0400Heart rate65 /min Jack Hoang MD Work Phone: [facility]06-27-2025 14:23-0400Respiratory rate 18 /minSryan Hoang MD Work Phone: [facility]06-27-2025 14:23-0623OhH0% (BldA) [Mass fraction]95 %Jack Hoang MD Work Phone: [facility]06-27-2025 14:23-0400Systolic blood nxmfltly266 mm[Hg]Jack Hoang MD Work Phone: [facility]06-02-2025 09:57-0400Body rdqeef729.6 cmBina Griffin DO Work Phone: 1(958)[facility]06-02-2025 09:57-0400Body mass index (BMI) [Ratio]28.25 kg/m2Bina Griffin DO Work Phone: 1(190)[facility]06-02-2025 09:57-0400Body .38 kgBina Griffin DO Work Phone: 1(962)[facility]06-02-2025 09:57-0400Diastolic blood hodzymjp82 mm[Hg]Bina Griffin DO Work Phone: 1(762)[facility]06-02-2025 09:57-0400Heart rate 57 /minBina Griffin DO Work Phone: 1(319)[facility]06-02-2025 09:57-3606FwS9% (BldA) [Mass fraction]96 %Bina Griffin DO Work Phone: 1(675)[facility]06-02-2025 09:57-0400Systolic blood punudjgb600 mm[Hg]Bina Griffin DO Work Phone: 1(458)[facility]05-16-2025 13:24-0400Body mass index (BMI) [Ratio]30.05 kg/i4IaagcMichelle Mejia APRN.CNP Work Phone: [facility]05-16-2025 13:24-0400Body temperature 97.11 [degF]Michelle Mejia APRN.CNP Work Phone: [facility]05-16-2025 13:24-0400Body swptyd71.3 kgMichelle Mejia WOOL SHEARER.[employer] CLE[employer] Work Phone: [facility]05-16-2025 13:24-0400Diastolic blood djycksuu72 mm[Hg]Michelle Mejia WOOL SHEARER.[employer] CLE[employer] Work Phone: [facility]05-16-2025 13:24-0400Heart rate68 /min Michelle Mejia WOOL SHEARER.[employer] CLE[employer] Work Phone: [facility]05-16-2025 13:24-0400Respiratory rate 18 /minMichelle Mejia WOOL SHEARER.[employer] CLE[employer] Work Phone: [facility]05-16-2025 13:24-1354GoG3% (BldA) [Mass fraction]97 %Michelle Mejia WOOL SHEARER.[employer] CLE[employer] Work Phone: [facility]05-16-2025 13:24-0400Systolic blood hmfohawe241 mm[Hg]Michelle Mejia WOOL SHEARER.[employer] CLE[employer] Work Phone: [facility]04-11-2025 13:35-0400Body cjnnjy161.5 cmUn[facility] WOOL SHEARER.[employer] CLE[employer] Work Phone: [phone] Memorial HospitalXynxcj99-17-0935 13:35-0400Body mass index (BMI) [Ratio]30.12 kg/x2ObpsfarvHighland Springs Surgical Centershane WOOL SHEARER.[employer] CLE[employer] Work Phone: [phone] Memorial HospitalSkcoqg42-16-4850 13:35-0400Body temperature 97.7 [degF][facility] WOOL SHEARER.[employer] Work Phone: [place] [address]Qhufzl86-82-8498 13:35-0400Body ysvtdl76.5 kgUnc Health Wayne WOOL SHEARER.[employer] CLE[employer] Work Phone: [place] [address]-11-2025 13:35-0400Diastolic blood xdeyujxl50 mm[Hg][facility] Centerwolfgang WOOL SHEARER.[employer] CLE[employer] Work Phone: [facility]levelC[facility] Orthopedic CenterTzlddr21-14-8304 13:35-0400Heart rate66 /min Joey Scott WOOL SHEARER.[employer] Work Phone: cNorwalk Memorial HospitalDxsoor97-19-4661 13:35-0400Respiratory rate 16 /minKimberly Jim WOOL SHEARER.[employer] CLE[employer] Work Phone: cNorwalk Memorial HospitalWnujrp07-85-4148 13:35-0400Systolic blood emozznxj132 mm[Hg]Joey Scott WOOL SHEARER.[employer] Work Phone: cNorwalk Memorial HospitalRqmpxb22-36-6635 13:23-0400Body qknamx526.5 cmMichelle Mejia APRN.[employer] CLEAN[employer] Work Phone: [facility]04-11-2025 13:23-0400Body mass index (BMI) [Ratio]30.01 kg/m2AfapxMichelle Mejia APRN.[employer] CLE[employer] Work Phone: [facility]04-11-2025 13:23-0400Body temperature 97.59 [degF]Michelle Mejia APRN.[employer] CLE[employer] Work Phone: [facility]04-11-2025 13:23-0400Body hpgikh34.2 kgMichelle Mejia APRN.[employer] CLE[employer] Work Phone: [facility]04-11-2025 13:23-0400Diastolic blood owxgucxk41 mm[Hg]Michelle Mejia APRN.[employer] CLE[employer] Work Phone: [facility]04-11-2025 13:23-0400Heart rate66 /min Michelle Mejia APRN.[employer] CLE[employer] Work Phone: [facility]04-11-2025 13:23-0400Respiratory rate 16 /minMichelle Mejia APRN.[employer] CLEAN[employer] Work Phone: [facility]04-11-2025 13:23-0880PiI2% (BldA) [Mass fraction]97 %Michelle Mejia APRN.[employer] CLE[employer] Work Phone: [facility]04-11-2025 13:23-0400Systolic blood mm[Hg]Michelle Mejia APRN.[employer] CLE[employer] Work Phone: [facility]03-14-2025 12:52-0400Body ogmena545.5 cmVcayden Hancock MD Work Phone: [facility] ShawComment on above:verified no shoes 05-18-2024 12:52-0400Body mass index (BMI) [Ratio]29.58 kg/l8GtbwkLo Hancock MD Work Phone: [facility]03-14-2025 12:52-0400Body temperature 97.11 [degF]Lo Hancock MD Work Phone: [facility]03-14-2025 12:52-0400Body endzxp94 kg Lo Hancock MD Work Phone: [facility]03-14-2025 12:52-0400Diastolic blood ezooefmo69 mm[Hg]Lo Hancock MD Work Phone: [facility]03-14-2025 12:52-0400Heart rate65 /min Lo Hancock MD Work Phone: [facility]03-14-2025 12:52-0400Respiratory rate 16 /minLo Hancock MD Work Phone: [facility]03-14-2025 12:52-7288DvQ0% (BldA) [Mass fraction]96 %Lo Hancock MD Work Phone: [facility]03-14-2025 12:52-0400Systolic blood appjqqpq980 mm[Hg]Lo Hancock MD Work Phone: [facility]02-26-2025 10:08-0500Body mass index (BMI) [Ratio]29.44 kg/m2Jack Hoang MD Work Phone: [facility]02-26-2025 10:08-0500Body temperature 96.69 [degF]Jack Hoang MD Work Phone: [facility]02-26-2025 10:08-0500Body woufbk21.7 kgJack Hoang MD Work Phone: [facility]02-26-2025 10:08-0500Diastolic blood sczcsqhi66 mm[Hg]Jack Hoang MD Work Phone: [facility]02-26-2025 10:08-0500Heart rate64 /min Jack Hoang MD Work Phone: [facility]02-26-2025 10:08-0500Respiratory rate 18 /minSryan Hoang MD Work Phone: [facility]02-26-2025 10:08-2423XyE9% (BldA) [Mass fraction]95 %Jack Hoang MD Work Phone: [facility]02-26-2025 10:08-0500Systolic blood mclwhgqa738 mm[Hg]Jack Hoang MD Work Phone: [facility]02-12-2025 10:08-0500Body lfkfte876.6 cmDick Miranda MD Work Phone: [facility] RoadJmjximpvot98-61-4317 10:08-0500Body mass index (BMI) [Ratio]30.51 kg/m2Dick Miranda MD Work Phone: [facility] RoadUpnousxrax73-15-2224 10:08-0500Body temperature 97.5 [degF]Dick Miranda MD Work Phone: [facility] RoadTaoyycvacf09-92-4361 10:08-0500Body gpcibq65.73 kgDick Miranda MD Work Phone: [place] [address]Xdhobaauss62-63-5046 10:08-0500Diastolic blood rniwhbiv52 mm[Hg]Dick Miranda MD Work Phone: [facility] RoadMcyiyxmsic53-98-1310 10:08-0500Heart rate76 /min Dick Miranda MD Work Phone: [place] [address]Pfkpfbaqqp88-84-2268 10:08-0500Respiratory rate18 /minDick Miranda MD Work Phone: [facility] RoadObmaqkqgfv06-24-3588 10:08-4152WnV6% (BldA) [Mass fraction]92 %Dick Miranda MD Work Phone: [facility] RoadNaqgglvrha21-95-2774 10:08-0500Systolic blood bzvetpdj872 mm[Hg]Dick Miranda MD Work Phone: [facility] RoadWitzdanliv84-59-4462 13:23-0500Body shbonb836.6 cmVcayden Hancock MD Work Phone: [facility]02-05-2025 13:23-0500Body mass index (BMI) [Ratio]30.05 kg/t2VodzyLo Hancock MD Work Phone: [facility]02-05-2025 13:23-0500Body temperature 98.01 [degF]Lo Hancock MD Work Phone: [facility]02-05-2025 13:23-0500Body ilkvcc87.4 kgLo Hancock MD Work Phone: [facility]02-05-2025 13:23-0500Diastolic blood saskvgen23 mm[Hg]oL Hancock MD Work Phone: [facility]02-05-2025 13:23-0500Heart rate61 /min Lo Hancock MD Work Phone: [facility]02-05-2025 13:23-0500Respiratory rate 16 /minLo Hancock MD Work Phone: [facility]02-05-2025 13:23-2624GjP6% (BldA) [Mass fraction]96 %Lo Hancock MD Work Phone: [facility]02-05-2025 13:23-0500Systolic blood iiairvla203 mm[Hg]Lo Hancock MD Work Phone: [facility]02-03-2025 11:26-0500Body mass index (BMI) [Ratio]30.34 kg/m2Bina Griffin DO Work Phone: 1419)[facility]02-03-2025 11:26-0500Body zvpeoh61.28 kgBina Griffin DO Work Phone: 1419)[facility]02-03-2025 11:26-0500Diastolic blood dnzmxavy86 mm[Hg]Bina Griffin DO Work Phone: 1419)[facility]02-03-2025 11:26-0500Heart rate 70 /minBina Griffin DO Work Phone: 1419)[facility]02-03-2025 11:26-0500Systolic blood ragmuybq726 mm[Hg]Bina Griffin DO Work Phone: 1419)[facility]01-17-2025 14:44-0500Body mass index (BMI) [Ratio]30.1 kg/p9VstuvtpmValleywise Health Medical Centerrid WOOL SHEARER.[employer] CLE[employer] Work Phone: JNorwalk Memorial HospitalXrzgoc66-84-9355 14:44-0500Body temperature 97.81 [degF][facility]eyNov[facility] WOOL SHEARER.[employer] CLEAN[employer] Work Phone: UlevelC[facility] Orthopedic CenterNisriy51-12-6832 14:44-0500Body forbrw54.6 kgUnc Health Wayne WOOL SHEARER.[employer] CLE[employer] Work Phone: [place] Bucifp68-03-1947 14:44-0500Diastolic blood ppbzcihi86 mm[Hg]Joey Bundrid WOOL SHEARER.[employer] CLE[employer] Work Phone: [place] Ygzilz95-98-3127 14:44-0500Heart rate74 /min Joey Stray Bootsrid WOOL SHEARER.[employer] CLE[employer] Work Phone: [place] Xtcnaq45-97-8081 14:44-0500Respiratory rate 18 /minBlountville Bundrid WOOL SHEARER.[employer] CLE[employer] Work Phone: [place] Xtpyym50-69-0594 14:44-1638LsT2% (BldA) [Mass fraction]96 %Joey Bundrid WOOL SHEARER.[employer] CLEAN[employer] HAND Work Phone: QNorwalk Memorial HospitalFpzkqs30-38-6871 14:44-0500Systolic blood giikrmgz921 mm[Hg]Joey Scott APRN.[employer] CLEANING [employer] Work Phone: cNorwalk Memorial HospitalQtxfla92-01-4891 12:55-0500Body mass index (BMI) [Ratio]30.25 kg/m2Jack Hoang MD Work Phone: [facility]01-06-2025 12:55-0500Body temperature 97.39 [degF]Jack Hoang MD Work Phone: 1(570)050-[address] [place], [place] 5215801-06-2025 12:55-0500Body xakkzw14 kg Jack Hoang MD Work Phone: 1(613)1-[address] [place], [place] 9027801-06-2025 12:55-0500Diastolic blood itsqyoox39 mm[Hg]Jack Hoang MD Work Phone: 1(175)017-[address] [place], [place] 5215801-06-2025 12:55-0500Heart rate71 /min Jack Hoang MD Work Phone: 1(179)1-[address] [place], [place] 5215801-06-2025 12:55-0500Respiratory rate 18 /minSryan Hoang MD Work Phone: [phone]01-06-2025 12:55-7529KqR8% (BldA) [Mass fraction]95 %Jack Hoang MD Work Phone: [facility]01-06-2025 12:55-0500Systolic blood vfyucbjc526 mm[Hg]Jack Hoang MD Work Phone: [facility]01-02-2025 10:24-0500Body rreina501.6 cmGrant Luiza VELARDE Work Phone: [facility] RoadNbvzusujrq15-17-5680 10:24-0500Body mass index (BMI) [Ratio]31.31 kg/a4PuorfRobert King MATERIAL EXPEDITER Work Phone: [facility] RoadJkivgnilyp77-48-9635 10:24-0500Body ewhaxk89 kg Robert King NP Work Phone: [facility] RoadZodwdhpqry83-59-1633 10:19-0500Body cywbul747.6 Stephenie Owen MD Work Phone: [facility]12-30-2024 10:19-0500Body mass index (BMI) [Ratio]30.83 kg/f0EabwaGary Owen MD Work Phone: [facility]12-30-2024 10:19-0500Body jzilqp80.64 kgGary Owen MD Work Phone: [facility]12-30-2024 10:19-0500Diastolic blood onbwktaa92 mm[Hg]Gary Owen MD Work Phone: [facility]12-30-2024 10:19-0500Heart rate 85 /minGary Owen MD Work Phone: [facility]12-30-2024 10:19-4866CnU4% (BldA) [Mass fraction]96 %Gary Owen MD Work Phone: [facility]12-30-2024 10:19-0500Systolic blood mm[Hg]Gary Owen MD Work Phone: [facility]12-20-2024 14:35-0500Body mass index (BMI) [Ratio]30.57 kg/y8RnrfpLo Hancock MD Work Phone: [facility]12-20-2024 14:35-0500Body temperature 97.7 [degF]Lo Hancock MD Work Phone: [facility]12-20-2024 14:35-0500Body .9 kgLo Hancock MD Work Phone: [facility]12-20-2024 14:35-0500Diastolic blood yshqycwl13 mm[Hg]Lo Hancock MD Work Phone: [facility]12-20-2024 14:35-0500Heart rate69 /min Lo Hancock MD Work Phone: [facility]12-20-2024 14:35-0500Respiratory rate 18 /minLo Hancock MD Work Phone: [facility]12-20-2024 14:35-5971ErQ0% (BldA) [Mass fraction]95 %Lo Hancock MD Work Phone: [facility]12-20-2024 14:35-0500Systolic blood aehfarnu199 mm[Hg]Lo Hancock MD Work Phone: [facility]12-09-2024 13:06-0500Body mass index (BMI) [Ratio]30.83 kg/d3CjyllsOlegario Moreira MD Work Phone: [phone]12-09-2024 13:06-0500Body nzjoym25.64 kgOlegario Moreira MD Work Phone: 1(551)[facility]12-09-2024 13:06-0500Diastolic blood zcutrdrv68 mm[Hg]Olegario Moreira MD Work Phone: 1(169)[facility]12-09-2024 13:06-0500Heart rate 72 /minSelise Moreira MD Work Phone: 1(562)[facility]12-09-2024 13:06-0500Systolic blood ielvrzgm745 mm[Hg]Olegario Moreira MD Work Phone: 1(665)[facility]2024 11:01-0500Body bxaznw645.6 Franky Oreilly MD Work Phone: [facility]2024 11:01-0500Body mass index (BMI) [Ratio]30.71 kg/o6FolcuqnSavanah Oreilly MD Work Phone: [facility]2024 11:01-0500Body qohpgz69.3 Cam Oreilly MD Work Phone: [facility]2024 11:01-0500Diastolic blood zoaacuku87 mm[Hg]Savanah Oreilly MD Work Phone: [facility]2024 11:01-0500Heart rate75 /min Savanah Oreilly MD Work Phone: [facility]2024 11:01-6462QcZ8% (BldA) [Mass fraction]100 %Savanah Oreilly MD Work Phone: [facility]2024 11:01-0500Systolic blood pyrlnmoj442 mm[Hg]Savanah Oreilly MD Work Phone: [facility]11-12-2024 10:28-0500Body whwevs734.6 cmDick Miranda MD Work Phone: 1(391)046-[address] [place], [place] [address]Ltepbxubzu39-57-7034 10:28-0500Body mass index (BMI) [Ratio]31.31 kg/m2Dick Miranda MD Work Phone: [phone])96834[address] [place], [place] [address]Ypmsoiswyv92-96-9162 10:28-0500Body temperature 97.5 [degF]Dick Miranda MD Work Phone: [place] [address]Nchapamays41-92-6144 10:28-0500Body vaatrf38 kg Dick Miranda MD Work Phone: [place] [address]Thknczajcp20-14-1281 10:28-0500Diastolic blood jgigruef16 mm[Hg]Dick Miranda MD Work Phone: [place] [address]Mnclvnxbcn23-32-9342 10:28-0500Heart rate81 /min Dick Miranda MD Work Phone: [place] [address]Tzhbzckppl87-93-9379 10:28-0500Respiratory rate20 /minDick Miranda MD Work Phone: 1(640) 834-922397 [address] StreetZnayscaisl91-89-8910 10:28-8051IwH1% (BldA) [Mass fraction]95 %Dick Miranda MD Work Phone: 1(869) 231-700397 [address] StreetDdaorazqhv74-83-4605 10:28-0500Systolic blood yamybznw894 mm[Hg]Dick Miranda MD Work Phone: [facility] RoadHetjxcawmh57-29-8026 13:44-0400Body .6 cmDick Miranda MD Work Phone: [facility] RoadSxdynepngh63-57-7995 13:44-0400Body mass index (BMI) [Ratio]30.67 kg/m2Dick Miranda MD Work Phone: [facility] RoadHgttldzbyk11-15-5318 13:44-0400Body temperature 97.81 [degF]Dick Miranda MD Work Phone: [place] [address]Dfixflizty66-58-3797 13:44-0400Body .18 kgDick Miranda MD Work Phone: [facility] RoadUepbsykgug45-88-5434 13:44-0400Diastolic blood hgidqenp15 mm[Hg]Dick Miranda MD Work Phone: [facility] RoadGyotqsiznm68-13-4336 13:44-0400Heart rate90 /min Dick Miranda MD Work Phone: [place] [address]Rjwkaerqcm27-36-9688 13:44-0400Respiratory rate22 /minDick Miranda MD Work Phone: [facility] RoadKkvkjvdtab67-99-5939 13:44-2095UpD1% (BldA) [Mass fraction]95 %Dick Miranda MD Work Phone: [facility] RoadOkrwcjfwzt91-09-6336 13:44-0400Systolic blood iokrqpjx092 mm[Hg]Dick Miranda MD Work Phone: [facility] RoadMpwqvxqdgl02-68-5215 09:31-0400Body wqhoyd192.5 Hyun Hancock MD Work Phone: [facility]10-23-2024 09:31-0400Body mass index (BMI) [Ratio]31.27 kg/c3WndjfLo Hancock MD Work Phone: [facility]10-23-2024 09:31-0400Body temperature 97.2 [degF]Lo Hancock MD Work Phone: [facility]10-23-2024 09:31-0400Body .7 kgLo Hancock MD Work Phone: [facility]10-23-2024 09:31-0400Diastolic blood pnceorhs93 mm[Hg]Lo Hancock MD Work Phone: [facility]10-23-2024 09:31-0400Heart rate72 /min Lo Hancock MD Work Phone: [facility]10-23-2024 09:31-0400Respiratory rate 16 /minLo Hancock MD Work Phone: [facility]10-23-2024 09:31-2279IiS3% (BldA) [Mass fraction]99 %Lo Hancock MD Work Phone: [facility]10-23-2024 09:31-0400Systolic blood aexssirj061 mm[Hg]Lo Hancock MD Work Phone: [facility]10-18-2024 13:03-0400Body ebdsds771.5 [facility] Work Phone: XNorwalk Memorial HospitalRbwcwl45-30-0852 13:03-0400Body mass index (BMI) [Ratio]30.95 kg/y6LoeosxdjUnc Health [facility] [employer] Work Phone: HNorwalk Memorial HospitalFfcesd78-61-7604 13:03-0400Body temperature 97.7 [degF][facility] [employer] Work Phone: [place] Wsnasp75-59-1894 13:03-0400Body wdcorb75.8 kgUn[facility] [employer] Work Phone: GlevelC[facility] Clinic Orthopedic CenterIkbgtm07-53-3927 13:03-0400Diastolic blood iuffxbjl36 mm[Hg][facility] [employer] Work Phone: DNorwalk Memorial HospitalYcpoyt28-82-6060 13:03-0400Heart rate78 /min [facility] [employer] Work Phone: cNorwalk Memorial HospitalWlirob04-41-1325 13:03-0400Respiratory rate 18 /minUn[facility] [employer] [employer] Work Phone: [phone] Memorial HospitalDlmmze26-92-4117 13:03-5425JlX7% (BldA) [Mass fraction]96 %[facility] [employer] Work Phone: [phone] Memorial HospitalXpmwyg84-18-9238 13:03-0400Systolic blood uzsnaqxn655 mm[Hg][facility] [employer] Work Phone: cNorwalk Memorial HospitalJilmtq57-52-0873 09:33-0400Body .5 Hyun Hancock MD Work Phone: 1(390)1-[address] [place], [place] 9027810-02-2024 09:33-0400Body mass index (BMI) [Ratio]30.52 kg/k4MuswvLo Hancock MD Work Phone: 1(524)8-[address] [place], [place] 5215810-02-2024 09:33-0400Body temperature 97.81 [degF]Lo Hancock MD Work Phone: 1(679)730-[address] [place], [place] [address]15810-02-2024 09:33-0400Body .6 kgLo Hancock MD Work Phone: 1(589)8-[address] [place], [place] 5215810-02-2024 09:33-0400Diastolic blood osxuykah71 mm[Hg]Lo Hancock MD Work Phone: [phone]10-02-2024 09:33-0400Heart rate73 /min Lo Hancock MD Work Phone: [facility]10-02-2024 09:33-0400Respiratory rate 16 /minLo Hancock MD Work Phone: [facility]10-02-2024 09:33-7943EmC2% (BldA) [Mass fraction]96 %Lo Hancock MD Work Phone: [facility]10-02-2024 09:33-0400Systolic blood pnebplmk607 mm[Hg]Lo Hancock MD Work Phone: [facility]09-11-2024 09:06-0400Body .5 cmVcayden Hancock MD Work Phone: [facility] ShawComment on above:verified by 2 enscgrwhez01-80-6005 09:06-0400Body mass index (BMI) [Ratio]29.36 kg/n5LyjmwLo Hancock MD Work Phone: [facility]09-11-2024 09:06-0400Body temperature 97.9 [degF]Lo Hancock MD Work Phone: [facility]09-11-2024 09:06-0400Body mqosux35.4 kgLo Hancock MD Work Phone: [facility]09-11-2024 09:06-0400Diastolic blood wnaqzobb63 mm[Hg]Lo Hancock MD Work Phone: [facility]09-11-2024 09:06-0400Heart rate67 /min Lo Hancock MD Work Phone: [facility]09-11-2024 09:06-0400Respiratory rate 16 /minLo Hancock MD Work Phone: [facility]09-11-2024 09:06-2723GsN6% (BldA) [Mass fraction]95 %Lo Hancock MD Work Phone: [facility]09-11-2024 09:06-0400Systolic blood fmtuoiuf111 mm[Hg]Lo Hancock MD Work Phone: [facility]09-04-2024 13:05-0400Body bzjuex356.6 Franky Oreilly MD Work Phone: [facility]09-04-2024 13:05-0400Body mass index (BMI) [Ratio]28.36 kg/p3WwchyonSavanah Oreilly MD Work Phone: [facility]09-04-2024 13:05-0400Body nwlame03.7 kgSavanah Oreilly MD Work Phone: [facility]09-04-2024 13:05-0400Diastolic blood conwhpka65 mm[Hg]Savanah Oreilly MD Work Phone: [facility]09-04-2024 13:05-0400Heart rate71 /min Savanah Oreilly MD Work Phone: [facility]09-04-2024 13:05-4480HdF1% (BldA) [Mass fraction]97 %Savanah Oreilly MD Work Phone: [facility]09-04-2024 13:05-0400Systolic blood fbczmxxa105 mm[Hg]Savanah Oreilly MD Work Phone: [facility]08-21-2024 14:29-0400Body jqtoeg953.6 cmPacc 2 Work Phone: [facility]08-21-2024 14:29-0400Body mass index (BMI) [Ratio]28.11 kg/m2Pacc 2 Work Phone: [facility]08-21-2024 14:29-0400Body temperature 98.29 [degF]Pacc 2 Work Phone: [facility]08-21-2024 14:29-0400Body akzhir18 kg Pacc 2 Work Phone: [facility]08-21-2024 14:29-0400Diastolic blood ohzablcr31 mm[Hg]Pacc 2 Work Phone: [facility]08-21-2024 14:29-0400Heart rate70 /min Pacc 2 Work Phone: [facility]08-21-2024 14:29-0400Respiratory rate 14 /minPacc 2 Work Phone: [facility]08-21-2024 14:29-3362ReA7% (BldA) [Mass fraction]98 %Pacc 2 Work Phone: [facility]08-21-2024 14:29-0400Systolic blood oqsfsbpe186 mm[Hg]Pacc 2 Work Phone: [facility]08-16-2024 16:13-0400Body temperature 97.11 [degF]Lo Hancock MD Work Phone: [place] [address]-16-2024 16:13-0400Body spfasz25.9 kgLo Hancock MD Work Phone: [facility]08-16-2024 16:13-0400Diastolic blood xnrzoamm94 mm[Hg]Lo Hancock MD Work Phone: [facility]08-16-2024 16:13-0400Heart rate77 /min Lo Hancock MD Work Phone: [facility]08-16-2024 16:13-0400Respiratory rate 18 /minLo Hancock MD Work Phone: [facility]08-16-2024 16:13-4832BhG7% (BldA) [Mass fraction]97 %Lo Hancock MD Work Phone: [facility]08-16-2024 16:13-0400Systolic blood ydqyvrsg699 mm[Hg]Lo Hancock MD Work Phone: [facility]08-15-2024 11:58-0400Body ovriwl098.6 Kylefawn Lang DO Work Phone: [facility]08-15-2024 11:58-0400Body mass index (BMI) [Ratio]28.02 kg/d6TnxfrtEstefany Lang DO Work Phone: [facility]08-15-2024 11:58-0400Body rarfjf27.74 kgEstefany Lang DO Work Phone: [facility] [employer] Oxonmi38-93-8362 11:58-0400Diastolic blood udvettws17 mm[Hg]Estefany Lang DO Work Phone: [facility] [employer] Ruqume48-98-3385 11:58-0400Heart rate 67 /minSfawn Lang DO Work Phone: [facility] [employer] Nzhgwv28-08-7797 11:58-1984BhM0% (BldA) [Mass fraction]96 %Estefany Lang DO Work Phone: [facility] [employer] Jmfjoo91-66-7526 11:58-0400Systolic blood tstbysad925 mm[Hg]Estefany Lang DO Work Phone: [facility] [employer] Uuocdy87-91-8495 15:31-0400Body hwaulu736.6 Derrick Abdi MD Work Phone: [facility]08-08-2024 15:31-0400Body mass index (BMI) [Ratio]28.36 kg/y0GwmszGerald Abdi MD Work Phone: [facility] [employer] Zdqgmm09-47-4247 15:31-0400Body qecmqmbzhlc52.2 [degF]Gerald Abdi MD Work Phone: [facility] [employer] Mnutnl85-20-8724 15:31-0400Body biogut83.65 kgGerald Abdi MD Work Phone: [facility]08-08-2024 15:31-0400Diastolic blood amtllijh25 mm[Hg]Gerald Abdi MD Work Phone: [facility] [employer] Lbcdmf40-04-2451 15:31-0400Heart rate 71 /minGerald Abdi MD Work Phone: [facility] [employer] Svtiga59-20-4804 15:31-0400 Respiratory rate18 /minGerald Abdi MD Work Phone: [facility]08-08-2024 15:31-0523TmL8% (BldA) [Mass fraction]98 %Gerald Abdi MD Work Phone: [facility]08-08-2024 15:31-0400Systolic blood ijdcchpj636 mm[Hg]Gerald Abdi MD Work Phone: [facility]07-29-2024 13:06-0400Diastolic blood oafshraw99 mm[Hg]Olegario Moreira MD Work Phone: 1(506)[facility]07-29-2024 13:06-0400Heart rate 68 /Álvaro Moreira MD Work Phone: 1(123)[facility]07-29-2024 13:06-0400Systolic blood ovteducb973 mm[Hg]Olegario Moreira MD Work Phone: 1(802)[facility]04-22-2024 09:46-0400Diastolic blood dmnftwia01 mm[Hg]Olegario Moreira MD Work Phone: 1(913)[facility]04-22-2024 09:46-0400Systolic blood ynvbdtne233 mm[Hg]Olegario Moreira MD Work Phone: 1(740)[facility]04-22-2024 09:44-0400Body oxiebz074.2 Bj Moreira MD Work Phone: 1(333)[facility]04-22-2024 09:44-0400Body mass index (BMI) [Ratio]28.19 kg/q9AuyyemOlegario Moreira MD Work Phone: 1(939)[facility]04-22-2024 09:44-0400Body .65 kgOlegario Moreira MD Work Phone: 1(961)[facility] HospitalComment on above:per patient 06-27-2023 09:44-0400Heart rate71 /Álvaro Moreira MD Work Phone: 1(374)[facility]04-22-2024 09:44-2058VzB5% (BldA) [Mass fraction]96 %Olegario Moreira MD Work Phone: 1(266)[facility]02-14-2024 11:31-0500Body ubuklp840.6 cmDick Miranda MD Work Phone: noCox Walnut LawnBvvhettchu79-10-2651 11:31-0500Body mass index (BMI) [Ratio]29.54 kg/m2Dick Miranda MD Work Phone: noCox Walnut LawnWelrbelbqi83-34-1002 11:31-0500Body temperature 97.11 [degF]Dick Miranda MD Work Phone: noCox Walnut LawnLegbrpovxd20-11-1723 11:31-0500Body taleud74.01 kgDick Miranda MD Work Phone: noC[facility] Walnut LawnBhezyjrgdz96-81-5512 11:31-0500Diastolic blood pvadynlj26 mm[Hg]Dick Miranda MD Work Phone: noCox Walnut LawnWetmeqofpr44-31-3945 11:31-0500Heart rate66 /min Dick Miranda MD Work Phone: noC[facility] Walnut LawnCfzuqeqiek61-71-3379 11:31-3662FcI4% (BldA) [Mass fraction]97 %Dick Miranda MD Work Phone: noCox Walnut LawnLvqzwznqhe31-58-5107 11:31-0500Systolic blood lywbebvn097 mm[Hg]Dick Miranda MD Work Phone: [facility] Encounters Encounter DateEncounter TypeCare ProviderFacilityStart: 12-10-2024 End: 34-54-5469wjxqdlvuthGiqt Naderer MD Work Phone: [facility] Work Phone: Start: 12-10-2024 End: 34-15-9744Stcztyc encounter procedureDick Miranda MD-[facility] Family Medicine Tone Work Phone: Start: 98-52-6973Kvj-patient / Non-visitLo Hancock MD-[facility] [employer] Work Phone: Start: 12-07-2024 End: 53-83-9743kksmfavjxyFEFYPR ROODFacility:[facility]: 11-30-2024 End: 01-28-7701ciytbtictoXVFIHWHG J BUNDRIDGEFacility:[facility] Start: 05-95-9932Bic-patient / Non-visitLo Hancock MD-[facility] [employer] Work Phone: Start: 11-23-2024 End: 30-65-5712zwilofsskfPBBY A NADERERFacility:[facility]art: 11-23-2024 End: 54-46-2059ngcfvqyezyNLNYHZ ROODFacility:[facility]: 11-21-2024 End: 18-90-3495ngjlzymsjsOxnozllf Diller MD Work Phone: [facility] Work Phone: Start: 11-21-2024 End: 34-26-6016Tiidnlg encounter procedureDick Miranda [facility] Work Phone: Start: 11-20-2024 End: 51-22-8607txnddyfbabHFDEAX STEINERNot AvailableStart: 11-16-2024 End: 76-90-2153sjqgajaqzmFSIK RAJANFacility:[facility]: 11-09-2024 End: 12-50-5081Dydiqwlbs encounterLo Hancock MD Work Phone: Cancer Appts MCComment on above:ResultsStart: 11-09-2024 End: 86-02-1947Ifzavr outpatient visit 40 minutesLo Hancock MD Work Phone: Hematology/OncologyComment on above:Radiation-induced pulmonary fibrosis (HCC) (Primary Dx); Malignant neoplasm of unspecified part of unspecified bronchus or lung (HCC); Neuralgia; Pleural effusion, not elsewhere classified; Herpes zoster without complications; Encounter for follow-up examination after completed treatment for malignant neoplasm; nursing home (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Start: 11-09-2024 End: 98-19-0865brnyeutcuvOAEBR ABHYANKARFacility:[facility]art: 95-38-3379Hwa-patient / Non-visitLo Hancock MD-[facility] Work Phone: Start: 56-17-3491edtpbjwgxtUDKCS ABHYANKAR Facility:[facility]: 11-09-2024 End: 37-90-7431Npbgfmtiuf hospital visit by physicianArrival Time Radiology Work Phone: Radiology Pet CTComment on above:Malignant neoplasm of unspecified part of unspecified bronchus or lung (HCC) [C34.90]Start: 11-06-2024 End: 18-12-7488Cebzhgpob encounterNoemy Chicas RN Work Phone: Hematology/OncologyComment on above:Care Coordination (Lung Pain)Start: 10-30-2024 End: 76-77-1815Vfhgwsisr encounterNoemy Chicas RN Work Phone: Hematology/OncologyComment on above:Care Coordination (Discharge Follow Up Call )Start: 10-29-2024 End: 90-39-5617Ehnuzcjxm encounterNoemy Chicas RN Work Phone: Hematology/OncologyComment on above:Care Coordination (Hospital Admission)Start: 10-27-2024 End: 93-06-0377Qzayoagnsy and management of inpatientMichael R. Syedngs DO-[facility] Work Phone: Start: 73-36-9131Hsx-patient / Non-visitEnoc Barron MD-[facility] Pulmonary Work Phone: Start: 10-26-2024 End: 94-35-9993Hqwuxmhxd Result EncounterGeneric External Data ProviderNOMS External Department UnsolicitedStart: 10-26-2024 End: 79-94-8577Ztgqxlsnh Result EncounterGeneric External Data ProviderNOMS External Department UnsolicitedStart: 18-69-9267nqkgesedhfYVQI A NADERER Facility:[facility]: 10-26-2024 End: 57-37-0338Ebsjjunfnz hospital visit by physicianGeneral Murali Kebede Mc Work Phone: RadiologyComment on above:Radiation-induced pulmonary fibrosis (HCC) [J70.1]Start: 10-25-2024 End: 19-62-9543Ybloarosp encounterReshante Chicas RN Work Phone: Hematology/OncologyComment on above:Care Coordination (Lung Pain)Start: 10-24-2024 End: 16-10-7021Qrtkuj flowsheetMarshall Brink PTANOMS Tone Physical Therapy Start: 10-24-2024 End: 76-32-6847Yqogka flowsheetMarshall Brink PTANOMS [facility] Start: 10-24-2024 End: 25-62-8180wbbxpunzopIscgjtmw Brink PTANOMS Tone Physical TherapyComment on above:Trochanteric bursitis of right hip (Primary Dx)Start: 10-17-2024 End: 12-50-3713Krsckl Aleisha Miranda MD Work Phone: [facility] CWM FMStart: 10-17-2024 End: 97-91-1853Vcksgdsarah Miranda MD Work Phone: NOFX CWM FMStart: 10-17-2024 End: 33-96-4810derfbvxgslOzfpvap Kelbley PTANOMS Tone Physical TherapyComment on above:Trochanteric bursitis of right hip (Primary Dx)Start: 10-17-2024 End: 85-30-4906cpymonmompGZOG NADERERNot AvailableStart: 10-17-2024 End: 34-73-0552Wgwvpy outpatient visit 25 minutesDick Miranda MD Work Phone: NOLS CWM FMComment on above:Essential hypertension (Primary Dx); Chronic obstructive pulmonary disease, unspecified COPD type (HCC); Chemotherapy-induced neuropathy (HCC); 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); Primary insomnia; Trochanteric bursitis of right hipStart: 10-07-2024 End: 25-50-3932OacdtuSckmtTheresa MCGOVERN Work Phone: [facility] Internal MedicineComment on above:Essential hypertension; Bilateral carotid artery stenosis; Occlusive disease, arterialStart: 10-01-2024 End: 03-24-5265Bafyfk flowsNona Sonia PICKARDALANNAH [facility] Start: 10-01-2024 End: 20-01-1164Zrqbyz flowsAmariantonieta Wang PTAALANNAH [facility] Start: 10-01-2024 End: 88-39-7787ponnuvrvykCxyzapi Lawrence PTANO Tone Physical TherapyComment on above:Trochanteric bursitis of right hip (Primary Dx)Start: 09-27-2024 End: 94-20-0164Nzghpm Lien Wang NEERAJNOMS CI PTStart: 09-27-2024 End: 42-19-3333Ubxhkl Lien Sonia PICKARDNOMS CI PTStart: 09-27-2024 End: 91-28-4579bnbzdkdpthVztmrjjMercedes Wang PTANOMS CI PTComment on above: Trochanteric bursitis of right hip (Primary Dx)Start: 09-26-2024 End: 46-16-6703Xkfpgr outpatient visit 25 minutesGary Owen MD Work Phone: [facility] CardiologyComment on above: Essential hypertension (Primary Dx)Start: 09-26-2024 End: 24-67-1176bpynkiuxlgTATGFPGTPKH O NKADIProMedica Kaiser [facility] Medical Centertart: 09-25-2024 End: 93-56-5175Rkedikrjf encounterLisa Scripps [facility] Start: 09-24-2024 End: 60-53-6479Bbsart Lien Wang NEERAJNOMS CI PTStart: 09-24-2024 End: 13-36-1856Jfjtsw Lien Wang PTANOMS CI PTStart: 09-24-2024 End: 95-84-0503nfcebkntyiWjxmlwlMercedes Wang PTANOMS CI PTComment on above: Trochanteric bursitis of right hip (Primary Dx)Start: 09-21-2024 End: 77-03-4445Gtaslp Martínez Mayes PTANOMS CI PTStart: 09-21-2024 End: 64-33-9844Yrzirq flowsheetNilda CALDERON CI PTStart: 09-21-2024 End: 64-53-5825hsikxwqsztZavazdo Kelbley PTANO CI PTComment on above: Trochanteric bursitis of right hip (Primary Dx)Start: 09-20-2024 End: 53-17-1286Jdqxqa-up encounterMinvinny King PA-C Work Phone: Hematology/OncologyComment on above:Care Coordination (Lab Results)Start: 09-19-2024 End: 19-68-2797Uosgzrlch Result EncounterGeneric External Data ProviderNOMS External Department UnsolicitedStart: 09-19-2024 End: 97-64-2494Fhqfgfjgi Result EncounterGeneric External Data ProviderNOMS External Department UnsolicitedStart: 09-19-2024 End: 67-41-6315XfmypwDgul Naderer MD Work Phone: noms CWM FMComment on above:Primary insomnia; DDD (degenerative disc disease), cervicalCare Coordination (Fatigue)Start: 09-18-2024 End: 74-64-3488oynpqwvwvjDanryldb Brink PTANOMS CI PTComment on above: Trochanteric bursitis of right hip (Primary Dx)Start: 09-18-2024 End: 86-42-6026Itnadv flowsheetMarshall Brink PTANOMS CI PTStart: 09-18-2024 End: 88-30-5395Iboohz flowsheetMarshall Brink PTANOMS CI PTStart: 09-13-2024 End: 56-31-2619Baeqhg flowsheetSammantha Dumont PTNOMS CI PTStart: 09-13-2024 End: 11-33-5249Rrtlpl flowsheetSammantha Dumont PTNOMS CI PTStart: 09-13-2024 End: 22-28-8772njbqytpolwTjoikarrr Dumont PTNOMS CI PTComment on above: Trochanteric bursitis of right hip (Primary Dx)Start: 08-31-2024 End: 22-95-3768Mkivthe encounter procedureSashyann Davilaan MD Work Phone: Radiation OncologyComment on above:Malignant neoplasm of upper lobe of left lung (HCC) (Primary Dx)Start: 08-31-2024 End: 81-66-0274ofyjvdjiwyJIEX RAJANFacility:[facility] [place]: 40-33-6505Njt-patient / Non-visitCarajesh [facility] Work Phone: Start: 08-16-2024 End: 22-71-2781Wdzcot outpatient visit 25 minutesLo Hancock MD Work Phone: Hematology/OncologyComment on above:Malignant neoplasm of unspecified part of unspecified bronchus or lung (HCC) (Primary Dx); Immunotherapy; Nonintractable headache, unspecified chronicity pattern, unspecified headache type; Malaise and fatigue; Abnormal blood chemistry; Anemia, unspecified type; Malignant neoplasm of lower lobe, left bronchus or lung (HCC); Personal history of malignant neoplasm of bronchus and lung; Radiation-induced pulmonary fibrosis (HCC); Other specified disorders of thyroidStart: 08-16-2024 End: 26-65-1363evgtboziqtKYEBO ABHYANKARFacility:[facility] [place]: 08-10-2024 End: 59-10-9215Ufsnhyjxv encounterTifefrain Rodriguez RN Work Phone: Hematology/OncologyComment on above:Care Coordination (MRI results)Start: 08-08-2024 End: 69-33-1763vrugvfmogiWPHMZ MUSSERNot AvailableStart: 08-07-2024 End: 02-82-7703Ptqanafsx encounterNoemy Chicas RN Work Phone: Hematology/OncologyComment on above:Care Coordination (PET Results)DDD (degenerative disc disease), cervicalStart: 08-06-2024 End: 65-04-0081Vdqiie outpatient visit 10 minutesBina Griffin DO Work Phone: [facility] FremontComment on above: Internal carotid artery stenosis, bilateral; Occlusive disease, arterial; 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)Start: 08-06-2024 End: 64-36-2096ylsyulxlolRCPIPiedmont Mountainside Hospital PPGStart: 08-03-2024 End: 09-84-9034Lcglmejhu Result EncounterGeneric External Data ProviderNOMS External Department UnsolicitedStart: 08-03-2024 End: 64-12-0580Gazncffmk Result EncounterGeneric External Data ProviderNOMS External Department UnsolicitedStart: 89-74-9699yxrejfdxnsQIVKW MARTINEZ [facility]Start: 08-03-2024 End: 53-97-4039Ezkankjhwj hospital visit by physicianArrival Time Radiology Work Phone: Radiology Pet CTComment on above:Syncope and collapse [R55]Start: 07-31-2024 End: 70-21-1628Mzavgslfi department patient visitSycamore Medical Centertart: 07-31-2024 End: 36-29-8895Qahqirtgl encounterNoemy Chicas RN Work Phone: Hematology/OncologyComment on above:Care Coordination (Headache & Fatigue)Start: 07-26-2024 End: 99-66-0752alowwcmtfiLALGL A PETITTINot AvailableStart: 07-26-2024 End: 58-83-0689Nwsvmq Ashley King MATERIAL EXPEDITER Work Phone: NOQK FB ORTHOPAEDICSStart: 07-26-2024 End: 27-92-7009Didbhtsarah King NP Work Phone: NOMS FB ORTHOPAEDICSStart: 07-26-2024 End: 09-97-8187bmilmdjmkdRBXCZ T OLSENNot AvailableStart: 07-20-2024 End: 60-86-4297Sxglopqrrf hospital visit by physicianArrival Time Radiology Work Phone: Radiology Pet CTComment on above:Syncope and collapse [R55]Start: 07-20-2024 End: 24-26-3017Xhponikcn Result EncounterGeneric External Data ProviderNOMS External Department UnsolicitedStart: 07-20-2024 End: 91-82-9558Ucyvvazfh Result EncounterGeneric External Data ProviderNOMS External Department UnsolicitedStart: 07-20-2024 End: 43-08-9092Mmquacalb encounterMichelle Mejia APRN.CNP Work Phone: Cancer Appts MCComment on above:Referral Information (Dermatology)Start: 07-20-2024 End: 82-57-3919Pardilv encounter procedureHoljessica Mejia APRN.CNP Work Phone: Hematology/OncologyStart: 07-20-2024 End: 55-71-7260xevwjpwmjuKkjse [address] Work Phone: Hematology/OncologyComment on above:Malignant neoplasm of upper lobe of left lung (HCC) (Primary Dx)Malignant neoplasm of upper lobe of left lung (HCC) (Primary Dx); Syncope and collapseStart: 07-11-2024 End: 81-50-4698Gmaldd Ludmila Miranda MD Work Phone: noms CWM FMComment on above:Chemotherapy-induced neuropathy (CMS/HCC)Start: 07-09-2024 End: 38-69-8329UmdkgfXmmfhlj Sessler RN Work Phone: Hematology/OncologyComment on above:Refill Request (Ritalin)Start: 06-29-2024 End: 86-01-3262Jbzcjexqo Result EncounterGeneric External Data ProviderNOMS External Department UnsolicitedStart: 06-29-2024 End: 79-28-2279Szxaqqrib Result EncounterGeneric External Data ProviderNOMS External Department UnsolicitedStart: 06-29-2024 End: 50-22-6296wvdavvsnqsRASSI ABHYANKARFacility:[facility] [place]: 06-26-2024 End: 98-39-4165BicxnkAszsCatracho Miranda MD Work Phone: noms CWM FMComment on above:DDD (degenerative disc disease), cervicalStart: 06-15-2024 End: 20-83-8055mikpfkefhmWDCZ RAJANFacility:[facility] [place]: 06-15-2024 End: 89-24-4916Czvkcdg encounter procedureSryan Hoang MD Work Phone: Radiation OncologyComment on above:Malignant neoplasm of upper lobe of left lung (HCC) (Primary Dx)Start: 06-15-2024 End: 01-93-8312Itxmuhorq Result EncounterGeneric External Data ProviderNOMS External Department UnsolicitedStart: 06-15-2024 End: 59-71-8829Xmcvvepcn Result EncounterGeneric External Data ProviderNOMS External Department UnsolicitedStart: 06-15-2024 End: 67-57-9103Udsfviy encounter procedureJoey Scott APRN.[employer] Work Phone: palliative MedicineComment on above:Palliative care by specialist (Primary Dx); Thymoma; Neuropathy due to chemotherapeutic drug (HCC); Anxiety; 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 condition; Malignant neoplasm of upper lobe of left lung (HCC); Cancer of trachea, bronchus, and lung (HCC); Nausea; Paraneoplastic neuropathy (HCC)Start: 06-15-2024 End: 99-26-4240mjbaxolcnaVyuon Malena Kebede Work Phone: Hematology/OncologyComment on above:Malignant neoplasm of upper lobe of left lung (HCC) (Primary Dx)Malignant neoplasm of lung, unspecified laterality, unspecified part of lung (HCC) (Primary Dx)Start: 06-13-2024 End: 73-05-0333onrjvvghpqWcqbfzenzo Michaelis RD Work Phone: Nutrition TherapyStart: 06-13-2024 End: 14-17-7265Lmnhpjvsj therapyJacqueluisa Avery RD Work Phone: Nutrition TherapyComment on above:Nutrition Telephone Start: 06-05-2024 End: 57-01-8497KddjheHzbk Naderer MD Work Phone: noms CWM FMComment on above:KIKO (generalized anxiety disorder) (CMS/HCC)Start: 05-30-2024 End: 73-25-0632Izvjkvipo encounterSryan Hoang MD Work Phone: Radiation OncologyComment on above:Future Appointment Start: 05-18-2024 End: 36-16-0936Pvqgbkobo encounterShlipi Centeno RNHematology/OncologyComment on above:Referral RequestStart: 05-18-2024 End: 29-69-9037Nqsaiw outpatient visit 25 minutesLo Hancock MD Work Phone: Hematology/OncologyComment on above:Malaise and fatigue; Attention deficit hyperactivity disorder (ADHD), combined typeStart: 05-18-2024 End: 61-99-7478gdxujnbzjeOmzxi [address] Work Phone: Hematology/OncologyComment on above:Malignant neoplasm of upper lobe of left lung (HCC) (Primary Dx)Start: 05-11-2024 End: 97-55-6292synvxavdotCANC RAJANFacility:[facility] [place]: 05-11-2024 End: 08-54-1301Ahlxqno encounter procedureSryan Hoang MD Work Phone: Radiation OncologyStart: 05-11-2024 End: 25-04-8133Tsnhhizgb Oncology NoteSryan Hoang MD Work Phone: Radiation OncologyComment on above:Completion Note Start: 05-09-2024 End: 88-69-3437Vieghba encounter procedureMark Bong LMT Work Phone: Hematology/OncologyComment on above:Muscle soreness (Primary Dx)Start: 05-09-2024 End: 65-50-9576kezsntptlxMQTOT ABHYANKARFacility:[facility] HospitalStart: 05-09-2024 End: 69-16-6461zwallhhnolUVFL RAJANFacility:[facility] [place]: 05-07-2024 End: 07-69-9433gekssmduetTOPZ RAJANFacility:[facility] [place]: 05-04-2024 End: 80-33-2799xtrmffeiciDBVQ RAJANFacility:[facility] [place]: 05-03-2024 End: 61-38-1740Mycvmll encounter procedureMark Bong LMT Work Phone: Hematology/OncologyComment on above:Muscle soreness (Primary Dx)Start: 05-02-2024 End: 90-34-3147Ztuftujtf Result EncounterGeneric External Data ProviderNOMS External Department UnsolicitedStart: 05-02-2024 End: 72-66-0519Dltooxcri Result EncounterGeneric External Data ProviderNOMS External Department UnsolicitedStart: 05-02-2024 End: 21-60-5983Ugnbydawd encounterSryan Hoang MD Work Phone: Radiation OncologyComment on above:Patient Update; AppointmentStart: 05-02-2024 End: 03-44-6724Gxzntqj encounter procedureSryan Hoang MD Work Phone: Radiation OncologyComment on above:Malignant neoplasm of upper lobe of left lung (HCC) (Primary Dx)Start: 05-02-2024 End: 44-57-4427wkxtzbmuraCHNJS ABHYANKARFacility:[facility] [place]: 04-23-2024 End: 93-48-9998Cgheas Ashley King NP Work Phone: noms FB ORTHOPAEDICSStart: 04-23-2024 End: 42-59-6094Drbjzf Ashley King NP Work Phone: noms FB ORTHOPAEDICSStart: 04-23-2024 End: 77-48-8434foqwpulfnjZWPUO T OLSENNot AvailableStart: 04-23-2024 End: 79-99-3062Nisuyh outpatient visit 25 minutesRobert King NP Work Phone: NOCX FB ORTHOPAEDICSComment on above:Impingement syndrome of right shoulder (Primary Dx); Acute pain of right shoulder; Acute pain of left shoulder; Impingement syndrome of left shoulderStart: 04-18-2024 End: 51-05-5009Vcoqzu Aleisha Miranda MD Work Phone: noms CWM FMStart: 04-18-2024 End: 75-63-7205Tcgrdn Aleisha Miranda MD Work Phone: noms M FMStart: 04-18-2024 End: 94-59-8486Oakiiuk encounter procedureDick Miranda MD Work Phone: [facility] Work Phone: Start: 04-18-2024 End: 03-23-8043Lrucuq follow up visit related to original pxDick Miranda MD Work Phone: noms CWM FMComment on above:Medicare annual wellness visit, subsequent (Primary Dx); Seborrheic dermatitis; 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); Chronic obstructive pulmonary disease, unspecified COPD type (CMS/HCC)Start: 04-18-2024 End: 78-01-4517fpbvlyviinLOHB NADERERNot AvailableStart: 04-15-2024 End: 70-38-2463ImzxjoTopwqbSom Villasenor APRN-[employer] Work Phone: [facility] Internal MedicineComment on above:Essential hypertension; Bilateral carotid artery stenosis; Occlusive disease, arterialStart: 04-11-2024 End: 92-07-5429Wrrisnc encounter procedureCcf ProviderSelect [facility] DepartmentStart: 04-11-2024 End: 72-33-9405Atheszpxq Oncology Jason Hoang MD Work Phone: Radiation OncologyComment on above:Simulation Note Treatment PlanningStart: 04-11-2024 End: 26-75-1588Bthqgq outpatient visit 25 minutesLo Hancock MD Work Phone: Hematology/OncologyComment on above:Malignant neoplasm of upper lobe of left lung (HCC) (Primary Dx); Abnormal blood chemistry; Malaise and fatigueStart: 04-11-2024 End: 37-70-2903Wmxgkb WorkLorsheyla VILLAWHematology/OncologyComment on above: Patient EducationMalignant neoplasm of upper lobe of left lung (HCC) (Primary Dx)Start: 04-09-2024 End: 14-51-2835Jnbsyg outpatient visit 25 minutesBina Griffin DO Work Phone: [facility] [place]remontComment on above: Bilateral carotid artery stenosis (Primary Dx); PAD (peripheral artery disease) ([facility]-HCC)Start: 04-09-2024 End: 42-15-8700oyvzbbcwezNQJK M [facility] PPGStart: 04-09-2024 End: 54-43-3843hhflqktiddSQVZQV G AFRIDIProMedica Thief [facility] Falls HospitalStart: 04-03-2024 End: 80-03-6323Yntosauqb Result EncounterGeneric External Data ProviderNOMS External Department UnsolicitedStart: 04-03-2024 End: 84-06-9812Sugsajbaa Result EncounterGeneric External Data ProviderNOMS External Department UnsolicitedStart: 04-03-2024 End: 62-10-3950fmbloswianTOXE RAJANFacility:[facility] [place]: 04-03-2024 End: 21-44-8797Hyedtkodaq hospital visit by physicianArrival Time Radiology Work Phone: Radiology Pet CTComment on above:Malignant neoplasm of unspecified part of unspecified bronchus or lung (HCC) [C34.90]Start: 04-02-2024 End: 20-11-9073IhkbxgOvpg Naderer MD Work Phone: noms CWM FMComment on above:DDD (degenerative disc disease), cervicalStart: 03-23-2024 End: 48-08-0478konrofwiixMBHGABAU J BUNDRIDGEFacility:[facility] Start: 03-23-2024 End: 72-71-3334Tgnjpcy encounter procedureJoey Scott WOOL SHEARER.[employer] Work Phone: palliative MedicineComment on above:Palliative care by specialist (Primary Dx); Malignant neoplasm of upper lobe of left lung (HCC); Nausea; Anxiety; Cancer of trachea, bronchus, and lung (HCC); Paraneoplastic neuropathy (HCC); 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 conditionStart: 03-13-2024 End: 49-80-5375Xawllmiht encounterReshante Chicas RN Work Phone: Hematology/OncologyComment on above:Care Coordination (Treatment Decision)Start: 03-12-2024 End: 41-88-1062swfphxjjsmVYBW RAJANFacility:[facility] HospitalStart: 03-12-2024 End: 48-74-1618Zogitvl encounter Espinoza Hoang MD Work Phone: Radiation OncologyComment on above:Malignant neoplasm of unspecified part of unspecified bronchus or lung (HCC) (Primary Dx); Malignant neoplasm of upper lobe of left lung (HCC)Start: 03-08-2024 End: 53-68-5390Livtij Ashley King MATERIAL EXPEDITER Work Phone: NOIC FB ORTHOPAEDICSStart: 03-08-2024 End: 93-03-7836Udlgwi Ashley King MATERIAL EXPEDITER Work Phone: NOKH FB ORTHOPAEDICSStart: 03-08-2024 End: 20-21-1438yyamqwojtyLIRTY T OLSENNot AvailableStart: 03-08-2024 End: 37-80-8487Ewtrue outpatient visit 25 minutesRobert King NP Work Phone: NOFP FB ORTHOPAEDICSComment on above:Trochanteric bursitis of right hip (Primary Dx); Right hip painStart: 03-05-2024 End: 32-97-6228Mxhlwk outpatient new 45 minutesSophia Josh Moreira MD Work Phone: [facility] CardiologyComment on above: Essential hypertension (Primary Dx); Malignant neoplasm of upper lobe of left lung (CMS-HCC); Mixed hyperlipidemiaStart: 03-05-2024 End: 45-53-5499onaqpawebeBMRPH L DEBENEDETTISelect Medical [facility] HospitalStart: 03-02-2024 End: 18-12-9629Ygaigntwu encounterLisa Ariana [facility]Pro[facility] Start: 14-01-7169Pfmufbqqh for other preprocedural examinationCHANG XIAPFoothills Hospital HospitalStart: 02-27-2024 End: 31-35-5849zrugwhwuqzFTHG NADERERPFoothills Hospital HospitalStart: 02-27-2024 End: 78-33-9171xffiwgigynUKFYESI WUDEL [facility] Hospitaltart: 02-24-2024 End: 65-48-4491Omiabe outpatient visit 40 minutesLo Hancock MD Work Phone: Hematology/OncologyComment on above:Malignant neoplasm of lung, unspecified laterality, unspecified part of lung (HCC) (Primary Dx); Abnormal blood chemistryStart: 02-24-2024 End: 49-69-7820cftlcmoljpINGCR ABHYANKARFacility:[facility] [place]: 02-24-2024 End: 09-96-8215Fghisgdyp Result EncounterGeneric External Data ProviderNOMS External Department UnsolicitedStart: 02-24-2024 End: 51-76-1607Twpcndhid Result EncounterGeneric External Data ProviderNOMS External Department UnsolicitedStart: 02-23-2024 End: 48-43-4124DtltyoVrtaftKassidy MCGOVERN Work Phone: [facility] Internal MedicineComment on above:Essential hypertension; Bilateral carotid artery stenosis; Occlusive disease, arterialStart: 02-20-2024 End: 61-68-6778GsyngoKwbl Naderer MD Work Phone: [facility] FMComment on above:DDD (degenerative disc disease), cervicalCare Coordination (Fatigue; Body Aches)Start: 02-17-2024 End: 14-73-7771ywwbhftmtxUYZBVXM WUDEL [facility] Hospitaltart: 65-92-7839Bryfabdxv for preprocedural cardiovascular examinationCHANG TRINIDAD [facility] Hospitaltart: 02-14-2024 End: 65-25-1209Fncfmg OnlySavanah Oreilly MD Work Phone: Thoracic SurgeryComment on above:Preoperative testing (Primary Dx)Start: 02-14-2024 End: 47-82-8146Tykhjjz encounter Girish Oreilly MD Work Phone: [facility]: 02-13-2024 End: 55-45-7629Vroywg outpatient visit 25 minutesSociera Moreira MD Work Phone: [facility] FremontComment on above: Occlusive disease, arterial (Primary Dx); Right internal carotid occlusion; Malignant neoplasm of upper lobe of left lung (CMS-HCC)Start: 02-13-2024 End: 18-05-3257ltzivuryijAGFQKL G [facility]LECleveland [facility] PPGStart: 02-08-2024 End: 62-98-4912Vfxafbv encounter procedureSavanah Oreilly MD Work Phone: Thoracic SurgeryComment on above:Encounter for preoperative vascular examination (Primary Dx); Malignant neoplasm of upper lobe of left lung (HCC); Preoperative cardiovascular examination; Preoperative testingStart: 02-08-2024 End: 77-83-6643Rifqbit encounter statusSavanah Oreilly MD Work Phone: [facility] Hospitaltart: 02-08-2024 End: 34-66-2194Wezcwslrjzka stateSavanah Oreilly MD Work Phone: [facility] Hospitaltart: 02-08-2024 End: 50-61-7694romnsapurmWXTNGIW AFIAFacility:[facility]art: 88-04-5677Msespddus for other preprocedural examinationLECity HospitalStart: 93-04-7773Etmvqfjqk for preprocedural cardiovascular examinationLECity HospitalStart: 01-26-2024 End: 49-87-6902Kcmuneuga encounterNoemy Chicas RN Work Phone: Hematology/OncologyComment on above:Care Coordination (CT Results)Start: 01-25-2024 End: 88-42-9949Gxahdeycg Result EncounterGeneric External Data ProviderNOMS External Department UnsolicitedStart: 01-25-2024 End: 40-80-2136Patbknolj Result EncounterGeneric External Data ProviderNOMS External Department UnsolicitedStart: 01-25-2024 End: 89-13-1528mesijoufrrPRLGL ABHYANKARFacility:[facility]: 01-25-2024 End: 72-65-4887Jtlkpuxbki hospital visit by physicianArrival Time Radiology Work Phone: Radiology Pet CTComment on above:Malignant neoplasm of lung, unspecified laterality, unspecified part of lung (HCC) [C34.90]Start: 01-18-2024 End: 00-82-9019Gquxgdyzv encounterNoemy Chicas RN Work Phone: Hematology/OncologyComment on above:Care Coordination (Question)Start: 01-17-2024 End: 46-30-1561Ksjskl Aleisha Miranda MD Work Phone: noms CWM FMStart: 01-17-2024 End: 93-97-8301Sguljg Aleisha Miranda MD Work Phone: NOAI CWM FMStart: 01-17-2024 End: 33-56-2583btxegarcftMMBK NADERERNot AvailableStart: 01-17-2024 End: 14-99-2621Utulvo outpatient visit 25 minutesDick Miranda MD Work Phone: noms CWM FMComment on above:Essential hypertension (CMS/HCC) (Primary Dx); Chemotherapy-induced neuropathy (CMS/HCC); Chronic obstructive pulmonary disease, unspecified COPD type (CMS/HCC); Encounter for long-term (current) use of medications; PAD (peripheral artery disease) (CMS/HCC); DDD (degenerative disc disease), cervical; Hypothyroidism, postradioiodine therapy (CMS/HCC)Start: 01-03-2024 End: 96-68-3794Hzwmoc Beba Holland DO Work Phone: noms CI ORTHOPAEDICSStart: 01-03-2024 End: 42-42-8514Uddpzo RevistronicGeo Holland DO Work Phone: NOJS CI ORTHOPAEDICSStart: 01-03-2024 End: 77-60-4348Qotbtmnmv encounterNoemy Chicas RN Work Phone: Hematology/OncologyComment on above:Care Coordination (Medication Question)Care Coordination (Letter Request)Start: 01-03-2024 End: 30-74-2138Vtabaq outpatient visit 10 minutesMiquelgilson GlezSkyler DO Work Phone: noms CI ORTHOPAEDICSComment on above:Right hip pain (Primary Dx); Trochanteric bursitis of right hip; Tear of right gluteus minimus tendon, subsequent encounterStart: 01-03-2024 End: 39-80-2440tkbrogsgecCTNVTToan Mccoy AvailableStart: 12-29-2023 End: 57-92-7289Axmzys Aleisha Miranda MD Work Phone: noms CWM FMStart: 12-29-2023 End: 38-43-4054Jqwgzo Aleisha Miranda MD Work Phone: noms CWM FMStart: 12-29-2023 End: 10-16-3646Hpkkycklg encounterNoemy Chicas RN Work Phone: Hematology/OncologyComment on above:Care Coordination (Medication & Vaccine Question)Start: 12-29-2023 End: 81-14-8980Rmylsb outpatient visit 25 minutesDick Miranda MD Work Phone: noms CWM FMComment on above: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) (Primary Dx); PAD (peripheral artery disease) (CMS/HCC); Chemotherapy-induced neuropathy (CMS/HCC); Primary insomniaStart: 12-29-2023 End: 38-51-4470crzhhcrsadOCNZ NADERERNot AvailableStart: 12-28-2023 End: 66-76-7922Humhhwbnx Result EncounterGeneric External Data ProviderNOMS External Department UnsolicitedStart: 12-28-2023 End: 64-63-9468Lrtnoaklu Result EncounterGeneric External Data ProviderNOMS External Department UnsolicitedStart: 12-28-2023 End: 71-69-1061Mogjqn outpatient visit 40 minutesLo Hancock MD Work Phone: Hematology/OncologyComment on above:Malignant neoplasm of upper lobe of left lung (HCC) (Primary Dx); Malaise and fatigue; Attention deficit hyperactivity disorder (ADHD), combined type; Malignant neoplasm of lung, unspecified laterality, unspecified part of lung (HCC)Start: 12-28-2023 End: 30-50-8084uftdpukzdbPawxz Carmella Kebede Work Phone: Hematology/OncologyComment on above:Malignant neoplasm of upper lobe of left lung (HCC) (Primary Dx)Prescription RefillsStart: 12-26-2023 End: 60-38-4033hsaosloafnNojqyhyiw L Mitchell RNMobile ServicesComment on above: Palliative Medicine Introduction and Contact NumbersStart: 12-26-2023 End: 30-40-5515T-mail encounter from Tyrone Castillo ServicesStart: 12-23-2023 End: 50-13-4463Zcivdskpw encounterReshante Chicas RN Work Phone: Hematology/OncologyComment on above:Care Coordination (Numbness/Tingling; Lab Request)Start: 12-23-2023 End: 82-08-6375gzozadlsmsTALFTQGQ J BUNDRIDGEFacility:[facility] Start: 12-23-2023 End: 51-82-0206Pqoxrei encounter procedureJoey Scott APRN.CNP Work Phone: palliative MedicineComment on above:Palliative care by specialist (Primary Dx); Cancer of trachea, bronchus, and lung (HCC); Malignant neoplasm of upper lobe of left lung (HCC); Paraneoplastic neuropathy (HCC); Nausea; 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 condition; AnxietyStart: 12-19-2023 End: 18-14-8176UpiqweWezb Naderer MD Work Phone: noms CW FMComment on above:DDD (degenerative disc disease), cervicalStart: 12-07-2023 End: 57-25-9628Nfarlcrgt Result EncounterGeneric External Data ProviderNOMS External Department UnsolicitedStart: 12-07-2023 End: 02-34-5450Fcfrxdkei Result EncounterGeneric External Data ProviderNOMS External Department UnsolicitedStart: 12-07-2023 End: 67-59-3640ewpmdjleezWbark [address] Work Phone: Hematology/OncologyComment on above:Malignant neoplasm of upper lobe of left lung (HCC) (Primary Dx)Start: 12-07-2023 End: 50-76-5750Ogxqez outpatient visit 25 minutesLo Hancock MD Work Phone: Hematology/OncologyComment on above:Malignant neoplasm of upper lobe of left lung (HCC) (Primary Dx); ImmunotherapyStart: 11-29-2023 End: 23-83-2781Ojqjeixub encounterNoemy Chicas RN Work Phone: Hematology/OncologyComment on above:Care Coordination (Treatment Side Effects)Care Coordination (Dental Question)Start: 11-24-2023 End: 69-77-5561Blnaeaqzt Result EncounterGeneric External Data ProviderNOMS External Department UnsolicitedStart: 11-24-2023 End: 67-26-1199Zgrbzrtug Result EncounterGeneric External Data ProviderNOMS External Department UnsolicitedStart: 11-24-2023 End: 49-39-8931wpiexpwqcgFfr/Port John Paul Tolu Work Phone: Hematology/OncologyComment on above:Malignant neoplasm of upper lobe of left lung (HCC) (Primary Dx)Start: 11-21-2023 End: 45-51-1662Akbydjlwa encounterNoemy Chicas RN Work Phone: Hematology/OncologyComment on above:Care Coordination (C1D1 Post Treatment Call)Start: 11-18-2023 End: 92-70-8389CwnhqsPdcw Naderer MD Work Phone: noms CWM FMComment on above:DDD (degenerative disc disease), cervicalStart: 11-16-2023 End: 97-79-8513Ibgzvjcuw Result EncounterGeneric External Data ProviderNOMS External Department UnsolicitedStart: 11-16-2023 End: 52-44-5582Ehozmodvg Result EncounterGeneric External Data ProviderNOMS External Department UnsolicitedStart: 11-16-2023 End: 0076Swpfgldnt encounterFinancial Navigator John Paul Work Phone: Hematology/OncologyComment on above:Benefits InvestigationStart: 11-16-2023 End: 60-46-5490vgbnactyqbXebss 3 Tolu Work Phone: Hematology/OncologyComment on above:Malignant neoplasm of upper lobe of left lung (HCC) (Primary Dx)Start: 11-16-2023 End: 78-93-6387Nxouur outpatient visit 25 minutesLo Hancock MD Work Phone: Hematology/OncologyComment on above:Malignant neoplasm of upper lobe of left lung (HCC) (Primary Dx)Start: 11-15-2023 End: 67-34-7843showhkdhvgGlfgqwd Sessler RN Work Phone: Hematology/OncologyComment on above:First Time Treatment Education (Nivolumab, Paclitaxel, & Carboplatin)Start: 11-15-2023 End: 01-33-2952Zainsxzva encounterNoemy Chicas RN Work Phone: Hematology/OncologyComment on above:Care Coordination (Nutrition Referral)Lab OrdersStart: 11-14-2023 End: 62-89-8944Obwqnxfpe encounterNoemy Chicas RN Work Phone: Hematology/OncologyComment on above:Care Coordination (Antiemetics)Start: 11-11-2023 End: 05-55-6241Ftplvyaer encounterNoemy Chicas RN Work Phone: Hematology/OncologyComment on above:Care Coordination (Treatment Planning)Start: 11-09-2023 End: 69-24-2407Rblmukt encounter Antonio Oreilly MD Work Phone: Thoracic SurgeryComment on above:Malignant neoplasm of upper lobe of left lung (HCC) (Primary Dx)Start: 11-03-2023 End: 78-69-8128cqbetowaxoMKAAW N [facility] HospitalStart: 11-01-2023 End: 83-45-1211Laopwhvaj encounterHugh Craig MD Work Phone: Pulmonary MedicineStart: 11-01-2023 End: 74-59-1553ymfzhhulboOsk Rezakhani Research CoordinatorPulmonary Medicine Comment on above:Informed ConsentStart: 10-28-2023 End: 46-91-4421trtkbwzyqiXussyrgo K Heugel RNPulmonologyComment on above:another medication to holdStart: 10-28-2023 End: 27-25-0349E-mail encounter from caregiverTommie Mcfadden RNPulmonology Start: 10-28-2023 End: 48-28-7229Oguwwwgop to same day surgery centerFrsanti Elizondo APRN.[employer] Work Phone: PCH[facility]ST[facility] Saint Michael Hospitalomment on above: Lung mass (Primary Dx); Chronic obstructive pulmonary disease, unspecified COPD type (HCC); Chest pain, unspecified type; Hypertension, unspecified type; Hx of neck surgery; TIA (transient ischemic attack); Other chronic pain; Former smoker; PAD (peripheral artery disease) (HCC)Start: 10-28-2023 End: 03-98-1417Emopqftlejid consultation with patientFrsanti Elizondo APRN.[employer] Work Phone: [facility] Northwesttart: 10-27-2023 End: 41-72-2206QjseyhDroy Naderer MD Work Phone: noms CW FMComment on above:DDD (degenerative disc disease), cervical (Primary Dx); Primary insomniaStart: 10-26-2023 End: 12-09-4286Dfkazsfijnkiq examination donePacc [place] 2 Work Phone: [facility] Work Phone: Start: 10-26-2023 End: 19-36-1565ZHVBpua [place] 2 Work Phone: Pre AnesthesiaComment on above:Pre-op evaluation (Primary Dx); Chronic obstructive pulmonary disease, unspecified COPD type (HCC); Cigarette smoker; Hypothyroidism, postradioiodine therapy; TIA (transient ischemic attack); KIKO (generalized anxiety disorder); Essential hypertension; Mixed hyperlipidemia; PAD (peripheral artery disease) (HCC); Chronic pain syndrome; Prediabetes; History of craniotomyIncreased SOB following Spiriva useStart: 10-25-2023 End: 19-89-9471xvejtdfghgBevsncex K Heugecosme RNPulmonologyComment on above:hold medications until after procedureStart: 10-25-2023 End: 69-44-6358Dohnmthrvxupv procedureLenora Aguiar [facility] - Medical OncologyStart: 10-25-2023 End: 93-21-9748S-mail encounter from caregiverRoccoorlandodaniel Keely Lesa RNPulmonology Start: 10-25-2023 End: 39-24-2277Nuitkbc evaluation of patient and reportMa Nurse John Paul Marte Work Phone: Hematology/OncologyComment on above:Pre-op exam (Primary Dx); Lung noduleStart: 10-25-2023 End: 73-67-4813Fftehwskxkebz examination doneMa Nurse John Paul Marte Work Phone: [facility] ClinicStart: 10-24-2023 End: 00-14-1385byasrerzdnEszhkr C Cicenia MD Work Phone: PulmonologyComment on above:Bronchoscopy Scheduling Start: 10-24-2023 End: 34-34-3327Neocbamde encounterLo Hancock MD Work Phone: Cancer Appts MCComment on above:AppointmentQuestion Start: 10-22-2023 End: 17-42-4025QopjbtJoouxnSom Villasenor APRN-[employer] Work Phone: [facility] Internal MedicineComment on above:Essential hypertension (Primary Dx); Bilateral carotid artery stenosis; Occlusive disease, arterialStart: 10-21-2023 End: 66-70-6474Wxenki outpatient new 60 minutesLo Hancock MD Work Phone: Hematology/OncologyComment on above:Malignant neoplasm of upper lobe of left lung (HCC) (Primary Dx)Start: 10-21-2023 End: 47-74-1052hkxmxhbonlWIFRX N [facility] HospitalStart: 10-20-2023 Chart Heaven Hancock MD Work Phone: Hematology/OncologyStart: 10-20-2023 End: 61-98-9505Jikbdy outpatient new 60 minutesEstefany Herrera [place]ston Work Phone: [facility] Pulmonary/Sleep MedicineComment on above:Chronic obstructive pulmonary disease, unspecified COPD type ([facility]) (Primary Dx); Lung massStart: 10-20-2023 End: 41-09-3599ovrlibebwfFOJMWXWashington County Hospital Ambulatory PPGStart: 10-17-2023 End: 16-34-8351waayraciyoROANX [facility] HospitalStart: 10-13-2023 End: 40-86-6644Sxzdri outpatient new 60 minutesSandyng Elmer Abdi MD Work Phone: [facility] - Medical OncologyComment on above:Squamous carcinoma of lung, left ([facility]) (Primary Dx); Lung massStart: 10-13-2023 End: 95-85-7455cedelfdipbTEZSY N [facility] HospitalStart: 10-05-2023 End: 45-36-1284ymcbudkodkORAWHCD ROSTProMedica Bay [facility] Hospital HospitalStart: 10-05-2023 End: 21-42-3853brjdmvjwooNUQMOG A STILLWATERSPThe [facility] Hospital HospitalStart: 10-03-2023 End: 65-65-0486Mgixeo outpatient visit 40 minutesOlegario Moreira MD Work Phone: [facility] Vascular FremontComment on above: Occlusive disease, arterial (Primary Dx); Right internal carotid occlusion; Bilateral carotid artery stenosis; 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)Start: 10-03-2023 End: 92-82-5966hewquyeeagFDVGOU G AFRIDCleveland Clinic [facility] Ambulatory PPGStart: 06-27-2023 End: 16-41-3852Ezzxei outpatient visit 25 minutesOlegario Moreira MD Work Phone: [facility] Jobst VascularComment on above: Right internal carotid occlusion (Primary Dx); Occlusive disease, arterialStart: 04-20-2023 End: 06-61-1947Tennwi outpatient new 45 minutesDick Miranda MD Work Phone: N[facility]S CWM FMComment on above:Essential hypertension (CMS/HCC) (Primary Dx); Degenerative lumbar spinal stenosis; DDD (degenerative disc disease), cervical; Benign prostatic hyperplasia with urinary hesitancy; PAD (peripheral artery disease) (CMS/HCC); Hypothyroidism, postradioiodine therapy (CMS/HCC)Start: 03-14-2020 End: 57-01-0045Dhbdmgu encounter procedureJoMercy Hospital-XRMarina Del Rey HospitalStart: 01-24-2020 End: 65-01-6282Nwgscgx encounter procedureJONATUT [facility] HOSPITALFacility:Y5Pbesd: 10-12-2019 End: 73-33-1942Kjbzrlf encounter procedureJOBINDU SOMPLEFacility:C8Bshcy: 18-21-5750Kpbjakv encounter procedureAajd Moreno [facility] NetworkFacility:[facility] Start: 92-69-8640Evxahgv encounter procedureMaroun Patti SemaanFacility:[id number] Procedures DateProcedureProcedure DetailPerforming ClinicianStart: 88-75-3641Aboefyhn total Dick Miranda MD Work Phone: Comment on above:Provided reference range is from 6-10 AM sample collection time.Cortisol Reference Range: 6-10 AM =4.8-19.5 ug/dL, 4- 8 PM = 2.5-11.9 ug/dLStart: 58-68-3623Jomztgwp totalDick Miranda MD Work Phone: Comment on above:Provided reference range is from 6-10 AM sample collection time.Cortisol Reference Range: 6-10 AM =4.8-19.5 ug/dL, 4- 8 PM = 2.5-11.9 ug/dLStart: 44-26-2446Iib imaging ct attenuation skull base mid-thighLo Hancock MD Work Phone: Start: 11-09-2024 End: 69-73-1603Pahki count complete auto&auto difrntl wbcPranayk Khadijah LAGUNAS Work Phone: Comment on above:Provided reference range is from 6-10 AM sample collection time.Cortisol Reference Range: 6-10 AM =4.8-19.5 ug/dL, 4- 8 PM = 2.5-11.9 ug/dLStart: 23-04-5126OJ angiography of thoraxBasia Vega MD Work Phone: Start: 08-39-3084Qrtbimdgynk Panel (PCR)Basia Vega MD Work Phone: Start: 87-92-1785Xiwqwhsrdu exam chest 2 viewsHoljessica Mejia APRN.CNP Work Phone: Start: 94-05-8748II CHEST 2V FRONTAL/LATGeneric External Data ProviderStart: 98-42-9793Iaschv-up visitFollow-upCHUKWUEMEKE O NKADIStart: 18-22-6625HDG CBC W AUTO DIFF BLDGeneric External Data Provider Start: 63-41-7749SX PET/CT SKULL-THIGH SUBQGeneric External Data ProviderStart: 75-14-5693Cwq imaging ct attenuation skull base mid-thighBaraga County Memorial Hospitaljessica Mejia APRN.[employer] Work Phone: Start: 48-75-2500BIF CBC W AUTO DIFF BLDGeneric External Data ProviderStart: 08-03-2024 End: 85-81-1373Foaombwltfvrscguiqq hormone acthMinvinny King PA-C Work Phone: Start: 48-12-1550WF BRAIN WO/W IVCONGeneric External Data ProviderStart: 67-10-2209Xt head/brain w/o & w/contrast materialMichelle Mejia APRN.CNP Work Phone: Start: 99-74-1818XJP CBC W AUTO DIFF BLDGeneric External Data ProviderStart: 13-70-5269THW CBC W AUTO DIFF BLDGeneric External Data ProviderStart: 41-91-1588WVK CBC W AUTO DIFF BLDGeneric External Data ProviderStart: 29-37-9019TBO CBC W AUTO DIFF BLDGeneric External Data Provider Start: 53-63-1411Eowwgkodeeueop aspir&/inj major jt/bursa w/o usGrant T Luiza MATERIAL EXPEDITER Work Phone: Start: 77-34-9026Lgxftgabpgmpsl aspir&/inj major jt/bursa w/o usGrant T Luiza MATERIAL EXPEDITER Work Phone: Start: 68-30-3402SD PET/CT SKULL-THIGH SUBQGeneric External Data ProviderStart: 15-19-8376Aew imaging ct attenuation skull base mid-thighJack Hoang MD Work Phone: Start: 15-37-1617FQD CBC W AUTO DIFF BLDGeneric External Data ProviderStart: 04-03-2024 End: 84-22-2528Akrzo count complete auto&auto difrntl wbcLo Hancock MD Work Phone: Start: 43-18-9502Wcljfrpcrfheqc aspir&/inj major jt/bursa w/o usGrant T Luiza MATERIAL EXPEDITER Work Phone: Start: 20-77-3473HVB CBC W AUTO DIFF BLDGeneric External Data ProviderStart: 18-74-5164Dc abdomen & pelvis w/contrast material Lo Hancock MD Work Phone: Start: 34-88-0329Pv thorax w/contrast materialLo Hancock MD Work Phone: Start: 73-02-7461SOR CBC W AUTO DIFF BLDGeneric External Data ProviderStart: 56-39-5380Zfpgv count complete auto&auto difrntl wbcLo Hancock MD Work Phone: Start: 67-59-0005Lhdqy metabolic panel calcium total Dick Miranda MD Work Phone: Start: 63-84-7618Bilsm metabolic panel calcium total Dick Miranda MD Work Phone: Start: 30-99-5981INO CBC W AUTO DIFF BLDGeneric External Data ProviderStart: 22-22-6533BLS CBC W AUTO DIFF BLDGeneric External Data ProviderStart: 08-30-6777YGI CBC W AUTO DIFF BLDGeneric External Data ProviderStart: 22-17-4315KUE CBC W AUTO DIFF BLDGeneric External Data Provider Start: 72-26-0721Oms routine ecg w/least 12 lds i&r onlyCcf ProviderStart: 93-40-3675Ukfims-up visitFollow-upSOPHIA G AFRIDIStart: 18-63-3610Sggxx 1996 panel - Serum or PlasmaLo Hancock MD Work Phone: Start: 94-39-1459U-ray of lumbar spine, four views Basia Duartetart: 96-46-6409Cdikzy-up visitStart: 28-74-2218Oanopqr of tympanostomyMyringotomy tube statusDick Miranda MD Work Phone: Start: 66-15-6753DzbyszjpezjBssl Naderer MD Work Phone: H/O: surgeryHx of neck surgeryFrances Sharon Elizondo APRN.[facility] Work Phone: History of tympanostomyMyringotomy tube statusBasia Vega MD Work Phone: Plan of Treatment DateCare ActivityDetailAuthorStart: 78-20-5483Jlqou panelLipid Screening [facility] Hospitaltart: 54-54-7352Ykuidfnm specific antigen measurementProstate Cancer Screening DiscussionKettering Memorial Hospitaltart: 69-23-9651Emuswflp Screening Diabetes ScreeningKettering Memorial Hospitaltart: 58-30-5005Mkymeyvt ScreeningDiabetes ScreeningKettering Memorial Hospitaltart: 73-67-4016Wlqxmobj ScreeningDiabetes Screening [facility]tart: 68-53-4309Vtxjzgrc ScreeningDiabetes ScreeningKettering Memorial Hospitaltart: 77-49-6632Aqillwdn ScreeningDiabetes ScreeningSelect [facility] Start: 55-39-4608Npskmjxf ScreeningDiabetes ScreeningKettering Memorial Hospitaltart: 21-53-1551Wtbdmfor ScreeningDiabetes ScreeningKettering Memorial Hospitaltart: 05-02-2027 Diabetes ScreeningDiabetes ScreeningKettering Memorial Hospitaltart: 34-45-3336Kqvjwyka ScreeningDiabetes ScreeningKettering Memorial Hospitaltart: 40-33-6202Cjmmbbkr Screening Diabetes ScreeningKettering Memorial Hospitaltart: 97-27-7578Ifkdyzhg ScreeningDiabetes ScreeningKettering Memorial Hospitaltart: 09-87-5338Psmakydf ScreeningDiabetes Screening [facility] Hospitaltart: 52-36-8822Frplzbfl ScreeningDiabetes ScreeningKettering Memorial Hospitaltart: 65-25-9757Sacjkoyw ScreeningDiabetes ScreeningSelect [facility] Start: 67-54-7146Lnibtrtw ScreeningDiabetes ScreeningKettering Memorial Hospitaltart: 04-92-7331Uxshpamk ScreeningDiabetes ScreeningKettering Memorial Hospitaltart: 10-02-2025 Screening for malignant neoplasm of colonNOCT HealthcareStart: 18-36-3420Umjie BMI ScreeningAdult BMI ScreeningAtrium Health Lincolntart: 39-37-2965Lciefih ScreeningTobacco ScreeningAtrium Health Lincolntart: 46-40-7892Hdeuvyt ScreeningTobacco ScreeningAtrium Health Lincolntart: 14-32-4664Vpkry BMI ScreeningAdult BMI ScreeningAtrium Health Lincolntart: 07-25-2025 End: 15-33-4492Lzfrdqy encounter procedureNOMS SWS DERMStart: 75-89-7474KQ Controlled (<130/80)BP Controlled (<130/80)[facility] Hospitaltart: 29-74-8306LG Controlled (<130/80)BP Controlled (<130/80)[facility] Hospitaltart: 04-23-2025 End: 66-17-9500Ksettty encounter fyfdlvumr47/17/2026 10:00 AM EST Office Visit [facility] [address] [place] [address] Dick Miranda MD [address] [place] [phone] [facility] FMStart: 02-12-2026Medicare Annual Wellness (AWV)Medicare Annual Wellness (AWV)[facility] HealthcareStart: 35-04-0785Khopq BMI ScreeningAdult BMI ScreeningHolzer Medical Center – Jackson SystemStart: 66-89-9001Ubdiejq ScreeningTobacco ScreeningHolzer Medical Center – Jackson SystemStart: 47-29-0896Pxjfi BMI ScreeningAdult BMI ScreeningHolzer Medical Center – [facility] SystemStart: 75-86-8311Ejefmwq ScreeningTobacco ScreeningHolzer Medical Center – Jackson SystemStart: 43-30-7885Gnkie BMI ScreeningAdult BMI ScreeningHolzer Medical Center – [facility] SystemStart: 97-38-1712Ocxplzm ScreeningTobacco ScreeningHolzer Medical Center – Jackson SystemStart: 39-40-9469PN Controlled (<130/80)BP Controlled (<130/80)[facility] Hospitaltart: 02-11-2025 End: 00-45-8224Ohgpviu encounter sgxvboznw25/08/2025 9:30 AM EST Office Visit [facility] [address] [place] [address] Bina Griffin, DO [address] [place] [address] [facility]: 02-07-2025 End: 01-90-7190Krxkrru encounter gguepgsmb73/04/2025 8:30 AM EST Appointment [facility] - Vascular [address] [place] [address] Bina Griffin, DO [address] [place] [address] [facility] - VascularStart: 02-06-2025 End: 62-33-2538WO.doppler Extremity arteries - bilateral for physiologic artery studyVas art doppler lwr bilat mult lev/PVR Vascular Ultrasound Routine Occlusive disease, 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) Expected: 02/06/2025 (Approximate), Expires: 08/06/2025[facility] Work Phone: [phone] on above:Expected: 02/06/2025 (Approximate), Expires: 08/06/2025Start: 45-38-6215Iahlzltrjq A1c measurementDiabetes: Hemoglobin V0RRJAF HealthcareStart: 70-18-7870VZ Controlled (<130/80)BP Controlled (<130/80)[facility] Hospitaltart: 11-23-2024 End: 50-48-7366Lwwqcu-up rofonusvm16/19/2025 1:30 PM EDT Visit (SP) Office Hematology/Oncology [address] [place], [place] [phone] Preston Hernández APRN.[employer] [address] [place] [address] 2 week follow up to recheck symptomsHematology/Oncology Comment on above:2 week follow up to recheck symptomsStart: 55-39-8176Hoqhscnjrq A1c measurementDiabetes: Hemoglobin R6RVHLK HealthcareStart: 11-16-2024 End: 69-79-7618Vgostvx encounter sznopgukn71/12/2025 11:00 AM EDT Office Visit Radiation Oncology [address] [place] [address] Jack Hoang MD [address] [place] [address] follow upRadiation OncologyComment on above:follow upStart: 30-46-0907ZL Controlled (<130/80)BP Controlled (<130/80)[facility] Hospitaltart: 11-15-2024 Hemoglobin A1c measurementDiabetes: Hemoglobin Z3NRIEI HealthcareStart: 11-09-2024 End: 86-79-4146Xkshzj-up encounterHematology/OncologyComment on above:follow up after PET scan same dayStart: 11-09-2024 End: 03-01-4142Kszxqgp encounter kvmytcmrn31/05/2025 10:00 AM EDT Appointment Radiology Pet CT [address] [place] [address] PET Radiology Pet CTComment on above:PETStart: 11-08-2024 End: 52-85-2369IWA W Auto Differential panel - BloodCOMPLETE BLOOD COUNT AND DIFFERENTIAL Lab Routine Malignant neoplasm of unspecified part of unspecified bronchus or lung (HCC) Expected: 11/08/2024 (Approximate), Expires: 02/07/2025 [facility] ShawComment on above:Expected: 11/08/2024 (Approximate), Expires: 02/07/2025Start: 11-08-2024 End: 62-05-6447Hdvprygbnyyhj metabolic 2000 panel - Serum or PlasmaCOMPREHENSIVE METABOLIC PANEL Lab Routine Malignant neoplasm of unspecified part of unspecified bronchus or lung (HCC) Expected: 11/08/2024 (Approximate), Expires: 02/07/2025leveland ClinicComment on above:Expected: 11/08/2024 (Approximate), Expires: 02/07/2025Start: 11-08-2024 End: 55-59-5785Xyijhrne [Mass/volume] in Serum or PlasmaCORTISOL, SERUM Lab Routine Malignant neoplasm of unspecified part of unspecified bronchus or lung ( HCC) Immunotherapy Malaise and fatigue Abnormal blood chemistry Expected: 11/08/2024 (Approximate),Expires: 02/07/2025leveland ClinicComment on above: Expected: 11/08/2024 (Approximate), Expires: 02/07/2025Start: 11-08-2024 End: 47-31-7593Koswdxqbaj A1c in BloodHEMOGLOBIN A1C Lab Routine Malignant neoplasm of unspecified part of unspecified bronchus or lung (HCC) Immunotherapy Abnormal blood chemistry Expected: 11/08/2024 (Approximate), Expires: 02/07/2025leveland ClinicComment on above:Expected: 11/08/2024 (Approximate), Expires: 02/07/2025Start: 11-08-2024 End: 20-84-8775DGO+CT Guidance for localization of tumor of Skull base to mid-thigh-- W 18F-FDG IVNM PET/CT SKULL-THIGH SUBSEQUENT Radiology Routine Malignant neoplasm of unspecified part of unspecified bronchus or lung (HCC) Expected: 11/08/2024 (Approximate), Expires: 09/15/2025[facility] Work Phone: Comment on above:Expected: 11/08/2024 (Approximate), Expires: 09/15/2025Start: 11-08-2024 End: 34-76-9025Mlzeahgznyy [Units/volume] in Serum or PlasmaTHYROID STIMULATING HORMONE Lab Routine Malignant neoplasm of unspecified part of unspecified bronch us or lung (HCC) Immunotherapy Malaise and fatigue Expected: 11/08/2024 (Approximate), Expires: 02/07/2025leveland ClinicComment on above:Expected: 11/08/2024 (Approximate), Expires: 02/07/2025Start: 65-87-2722Psizvufko [facility] SSDStart: 03-68-3554IsqsimqkrOhio State East Hospital Start: 58-27-7656GwuwoogzrdirHcaqxesspMartins Ferry Hospitaltart: 10-27-2024 Hospital admissionMartins Ferry Hospitaltart: 17-99-0285KymlhjinoMartins Ferry Hospitaltart: 10-26-2024 End: 29-93-9315Jjvudxr encounter imoyifgcb46/22/2025 8:00 AM EDT Appointment Radiology [address] [place] [address] [place] [address] CHEST XRAY RadiologyComment on above:CHEST XRAYStart: 10-24-2024 End: 30-68-5428sxplkwvivp80/20/2025 1:30 PM EDT Treatment [facility] [address] [facility] [address] [place] [phone] Anmol Parker PTANOMS Tone Physical TherapyStart: 67-52-7648Nzitw BMI Screening Adult BMI ScreeningProMccullough-Hyde Memorial Hospital SystemStart: 55-77-3257Dqdutlq Screening Tobacco ScreeningHolzer Medical Center – Jackson SystemStart: 10-17-2024 End: 59-00-8344jjgtzbhawx77/13/2025 1:30 PM EDT Treatment [facility] [address] [facility] [address] [place], [id number] Nilda Mayes PTANOMS Tone Physical TherapyStart: 10-17-2024 End: 44-73-4076Pnoayrc encounter qfmxucmze65/13/2025 10:00 AM EDT Office Visit [facility] [address] [place] [address] Dick Miranda MD [address] [place] [address] [facility] CWM FMStart: 41-05-3379Vuqsh BMI ScreeningAdult BMI ScreeningUniversity Hospitals Conneaut Medical Centerca [facility] SystemStart: 27-67-3573Dfxjusq ScreeningTobacco ScreeningUniversity Hospitals Conneaut Medical Centerca Health SystemStart: 62-16-8482Djxycay ScreeningTobacco ScreeningUniversity Hospitals Conneaut Medical Centerca [facility] SystemStart: 41-45-7850Xgzkavzvot A1c measurementDiabetes: Hemoglobin D4FPSWG HealthcareStart: 10-01-2024 End: 47-10-3018wnkftcjuzq97/28/2025 1:00 PM EDT Treatment [facility] [address] [facility] [address] [place] [address] Arnulfo Wang PTANOMS CI PTStart: 73-68-1785Germz BMI ScreeningAdult BMI ScreeningHolzer Medical Center – Jackson SystemStart: 09-27-2024 End: 31-88-4973iquilmcbwo63/24/2025 1:00 PM EDT Treatment [facility] [address] [facility] [address] [place] [address] Arnulfo Wang PTANOMS CI PTStart: 64-65-6493Ymmoooulqp A1c measurementDiabetes: Hemoglobin A1C [facility] HealthcareStart: 09-26-2024 End: 13-66-9418Dbovfbw encounter ltupjrgwg68/23/2025 1:45 PM EDT Office Visit [facility] [address] [place] [phone] Gary Owen MD [address] [place] [address] Neha Garcia MD [address] [place] [address] [facility] CardiologyStart: 09-25-2024 End: 69-39-5710Cgxbysg encounter vnxwszuef79/22/2025 2:35 PM EDT Office Visit [facility] [address] [place] [address] Susan Claudio MD [address] [place] [address] [facility] SWS DERMStart: 09-24-2024 End: 69-15-1983rhbgtjeakr78/21/2025 1:00 PM EDT Treatment [facility] [address] [place] [address] Arnulfo Wang PTANOMS CI PTStart: 09-21-2024 End: 96-12-2179dsadrppjnvILLW CI PTComment on above:ArrivedStart: 09-19-2024 End: 18-91-6521Cmuqndgct (Vitamin B12) [Mass/volume] in Serum or PlasmaSelect Medical [facility] Clinic Rehabilitation Hospital, Edwin ShawComment on above:Expected: 09/19/2024, Expires: 12/19/2024Start: 09-19-2024 End: 25-42-2070Bvrerpjd [Mass/volume] in Serum or PlasmaSelect Medical [facility] Clinic Rehabilitation Hospital, Edwin ShawComment on above:Expected: 09/19/2024, Expires: 12/19/2024Start: 09-19-2024 End: 49-47-8527Btygkj [Mass/volume] in Serum or PlasmaWeirsdale ClinicComment on above:Expected: 09/19/2024, Expires: 12/19/2024Start: 09-19-2024 End: 95-99-6645Uaqc and Iron binding capacity panel - Serum or PlasmaCleveland Mercy [facility] Work Phone: Comment on above:Expected: 09/19/2024, Expires: 12/19/2024Start: 09-19-2024 End: 02-14-8246Xwyfjrqwamc [Units/volume] in Serum or PlasmaSelect Medical [facility] Comment on above:Expected: 09/19/2024, Expires: 12/19/2024Start: 09-18-2024 End: 40-67-9512smtibymhnfDJMS CI PTComment on above:ArrivedStart: 09-18-2024 End: 53-12-1691Ldpbzev encounter acjmjsrvc16/15/2025 9:35 AM EDT Office Visit [facility] DER[facility] [address] [place] [phone] Susan Claudio MD [address] [place] [address] [facility] SWS DERMStart: 09-13-2024 End: 19-50-0698thdpefvyqd42/10/2025 10:30 AM EDT Evaluation [facility] CI PT [address] [place] [address] Verónica Dumont, PT ArrivedNOMS CI PTComment on above:ArrivedStart: 08-31-2024 End: 05-88-2195Xfwjotf encounter orxqeevev89/27/2025 2:30 PM EDT Office Visit Radiation Oncology [address] [place] [address] Jack Hoang MD [address] [place] [address] follow upRadiation OncologyComment on above:follow upStart: 08-24-2024 Hemoglobin A1c measurementDiabetes: Hemoglobin [id number] HealthcareStart: 08-18-2024 End: 13-54-7704GXY W Auto Differential panel - BloodCOMPLETE BLOOD COUNT AND DIFFERENTIAL Lab Routine Syncope and collapse Malignant neoplasm of upper lobe of left lung (HCC) Expected: 08/18/2024, Expires: 11/17/2024[facility] Comment on above:Expected: 08/18/2024, Expires: 11/17/2024Start: 08-18-2024 End: 70-61-9991Dxtitpqngmwgj metabolic 2000 panel - Serum or PlasmaCOMPREHENSIVE METABOLIC PANEL Lab Routine Syncope and collapse Malignant neoplasm of upper lobe of left lung (HCC) Expected: 08/18/2024, Expires: 11/17/2024leveland ClinicComment on above:Expected: 08/18/2024, Expires: 11/17/2024Start: 08-18-2024 End: 63-53-8141Pezfjhwy [Mass/volume] in Serum or PlasmaCORTISOL, SERUM Lab Routine Syncope and collapse Malignant neoplasm of upper lobe of left lung (HCC) Expected: 08/18/2024, Expires: 11/17/2024leveland ClinicComment on above: Expected: 08/18/2024, Expires: 11/17/2024Start: 08-18-2024 End: 86-13-3458Oqaeilwixkp [Units/volume] in Serum or PlasmaTHYROID STIMULATING HORMONE Lab Routine Syncope and collapse Malignant neoplasm of upper lobe of lef t lung (HCC) Expected: 08/18/2024, Expires: 11/17/2024leveland ClinicComment on above:Expected: 08/18/2024, Expires: 11/17/2024Start: 08-17-2024 End: 91-98-2592Ttqnfv-up encounterHematology/OncologyComment on above:4 week follow up with lab and chemotx NivoStart: 08-17-2024 End: 63-34-5943Bfymwzd encounter annwehtmb65/13/2025 1:45 PM EDT Office Visit [facility] [address] [place] [address] [place] [address] 4 week follow up with lab and chemotx NivoNortMyMichigan Medical Center Gladwin LaboratoryComment on above:4 week follow up with lab and chemotx NivoStart: 08-16-2024 End: 98-02-8474philyphjsh88/12/2025 11:45 AM EDT [facility] Hematology/Oncology [address] [place] [address] Lo Hancock MD [address] [place] [address] [place] [address] phone visit to go over resultsHematology/OncologyComment on above:phone visit to go over resultsStart: 08-08-2024 End: 32-18-3647Eucnhoxqudnl / ancillary services pbibpjixvv48/04/2025 11:00 AM EDT Ancillary Procedure [facility] FNR MR [address] [place] [address] ZHMT FNR MRStart: 08-06-2024 End: 15-00-5821Shlkigp encounter jjydrvaut28/02/2025 10:00 AM EDT Office Visit [facility] [place] [address] [place] [address] Bina Griffin, DO [address] [place] [address] [facility] F[place]ontStart: 08-03-2024 End: 32-45-5328Zenjzvc encounter ylfybgfxs33/30/2025 8:00 AM EDT Appointment Radiology Pet CT [address] [place] [address] PET Radiology Pet CTComment on above:PETStart: 07-26-2024 End: 47-46-0864Oyygbib encounter procedureNOMS FB ORTHOPAEDICSComment on above: ArrivedStart: 07-20-2024 End: 03-48-8133Cwsgun-up encounterHematology/OncologyComment on above:4 week follow up with lab and chemotx NivoStart: 07-20-2024 End: 93-68-1632Oqtbpbd encounter epsslgzvx21/16/2025 1:15 PM EDT Office Visit [facility] [address] [facility] [address] 4 week follow up with lab and chemotx NivoNortMyMichigan Medical Center Gladwin LaboratoryComment on above:4 week follow up with lab and chemotx NivoStart: 07-13-2024 End: 79-98-2268Fmcilu-up encounterHematology/OncologyComment on above:4 week follow up with lab and chemotx NivoStart: 07-13-2024 End: 56-44-3147Mfwrwci encounter hcpnzaeun48/09/2025 1:15 PM EDT Office Visit [facility] [address] [facility] [place] [address] 4 week follow up with lab and chemotx NivoNortMyMichigan Medical Center Gladwin LaboratoryComment on above:4 week follow up with lab and chemotx NivoStart: 07-09-2024 End: 17-57-3076Cxraqmpbcf A1c in BloodHEMOGLOBIN A1C Lab Routine Malignant neoplasm of upper lobe of left lung (HCC) Abnormal blood chemistry Malaise and fatigue Expected: 07/09/2024 (Approximate), Expires: 10/[facility]/2024[facility] Comment on above:Expected: 07/09/2024 (Approximate), Expires: 10/08/2024Start: 06-29-2024 End: 37-47-8485Lrsbbyw encounter oeuchuxsw00/25/2025 1:30 PM EDT Office Visit [facility] [address] [facility] [place] [address] 2 week labNortMyMichigan [facility] Comment on above:2 week labStart: 13-04-9044Ytksazazor A1c measurementDiabetes: Hemoglobin M0VIWJCCox Walnut LawnStart: 51-14-9562Tgeeo BMI ScreeningAdult BMI ScreeningHolzer Medical Center – Jackson SystemStart: 06-15-2024 End: 97-67-6267Lzwcacb encounter vigyhhyoj08/11/2025 2:45 PM EDT Office Visit Radiation Oncology [address] [place] [address] Jack Hoang MD [address] [place] [place] [address] Final radiation follow upRadiation OncologyComment on above:Final radiation follow upStart: 06-15-2024 End: 56-57-3516Pauhuc-up encounterHematology/OncologyComment on above:follow up with lab and chemotx NivoStart: 06-15-2024 End: 97-03-5998Hfcwuyy encounter procedureNortMyMichigan Medical Center Gladwin LaboratoryComment on above:follow up with lab and chemotx Nivo6 week follow up Start: 06-13-2024 End: 88-23-3163Yrcmeyz encounter zveyofglm72/09/2025 10:00 AM EDT Office Visit Palliative Medicine [address] [place] [address] Joey Scott APRN.[employer] [address] [address] 6 week follow upPalliative MedicineComment on above:6 week follow upStart: 06-13-2024 End: 92-94-3556Vvzdpuqad cbjlcdp3206/13/2024 9:15 AM EDT Education Nutrition Therapy [address] [place] [address] [place] [address] Nutrition after seeing Sharona DovegeNutrition TherapyComment on above:Nutrition after seeing Sharona DovegeStart: 06-08-2024 End: 63-01-9998Iijsymh encounter wokiqnjqn07/04/2025 2:30 PM EDT Office Visit Radiation Oncology [address] [place] [address] Jack Hoang MD [address] [place] [address] Final radiation follow upRadiation OncologyComment on above:Final radiation follow upStart: 06-08-2024 End: 09-79-7540Lqrtsuk encounter mrbjikbjq85/04/2025 10:30 AM EDT Office Visit Radiation Oncology [address] [place] [address] Jack Hoang MD [address] [place] [address] Final radiation follow upRadiation OncologyComment on above:Final radiation follow upStart: 06-06-2024 End: 10-67-1264Keasonreg qvudkit0306/06/2024 3:00 PM EDT Education Nutrition Therapy [address] [facility] [place] [address] [facility] [place] [address] Nutrition after seeing Sharona DovegeNutrition TherapyComment on above:Nutrition after seeing Sharona DovegeStart: 06-06-2024 End: 81-27-0103Arqdkuv encounter rcezygpjz71/02/2025 2:30 PM EDT Office Visit Palliative Medicine [address] [place] [address] [place] [address] Joey Scott, WOOL SHEARER.[employer] [address] [place] [phone] 6 week follow upPalliative MedicineComment on above:6 week follow upStart: 05-18-2024 End: 65-76-1263Ogprys-up encounterHematology/OncologyComment on above:follow up with lab and chemotx NivoStart: 05-18-2024 End: 98-20-3723Nobtbvr encounter zjskemzxg32/14/2025 12:45 PM EDT Office Visit [facility] [address] [place] [address] [place] [address] follow up with lab and chemotx NivoNortMyMichigan Medical Center Gladwin LaboratoryComment on above:follow up with lab and chemotx Nivo Start: 05-11-2024 End: 91-56-6683Zcmwcqi encounter procedureRadiation OncologyComment on above: SBRT LUNGStart: 05-09-2024 End: 95-41-6209Pivdsx-up encounterHematology/OncologyComment on above:follow up with lab and chemotx NivoStart: 05-09-2024 End: 20-73-1303Fgcvles encounter procedureNortMyMichigan Medical Center Gladwin LaboratoryComment on above:follow up with lab and chemotx NivoSBRT LUNGSBRT LUNG - 1245 LAB, 1 BOBBY, 130 CHEMOStart: 05-09-2024 End: 52-67-0081Auaxrev encounter procedureRadiation OncologyComment on above: SBRT LUNGStart: 05-07-2024 End: 73-21-4074Zhdqdif encounter procedureRadiation OncologyComment on above: SBRT LUNGStart: 05-04-2024 End: 80-33-3076Gkfstoi encounter nwfipguxr97/28/2025 2:30 PM EST Office Visit Palliative Medicine [address] [place] [address] Joey Scott, WOOL SHEARER.[employer] [address] [place] [address] 6 week follow upPalliative MedicineComment on above:6 week follow upStart: 05-04-2024 End: 50-98-5840Ctexwna encounter procedureRadiation OncologyComment on above: SBRT LUNGStart: 05-02-2024 End: 10-49-6745dxzgfzjlwf67/26/2025 11:00 AM EST Visit (SP) Office Hematology/Oncology [address] [place] [address] Mihai Woody LMT [address] [place] [place] [address] massage therapyHematology/OncologyComment on above:massage therapyStart: 05-02-2024 End: 16-22-0310Piiqpbc encounter procedureRadiation OncologyComment on above: SBRT LUNGlab on day fo XRT startNEW START SBRT LUNGNEW START SBRT LUNG - GIVE NEW SCHEDStart: 04-30-2024 End: 91-35-1058Altbtzx encounter procedureRadiation OncologyComment on above: SBRT LUNGStart: 04-27-2024 End: 19-48-5743Hoxbuya encounter procedureRadiation OncologyComment on above: SBRT LUNGStart: 04-25-2024 End: 92-06-0459auijsdvwhu85/19/2025 11:00 AM EST Visit (SP) Office Hematology/Oncology [address] [place] [address] Mihai Woody LMT [address] [place] [place] [address] massage therapyHematology/OncologyComment on above:massage therapyStart: 04-25-2024 End: 38-88-2363Zietoar encounter procedureNortMyMichigan Medical Center Gladwin LaboratoryComment on above:lab on day fo XRT startNEW START SBRT LUNGSBRT LUNG Start: 04-18-2024 End: 21-45-5243Ozighsg encounter procedureNOMS CWM FMComment on above:Arrived Start: 04-16-2024 End: 57-18-4755Soeqmxd encounter mldbhjkri30/10/2025 2:00 PM EST [facility] [place] [address] Olegario Moreira MD [address] [facility] [address] [place] [address] [facility]: 04-11-2024 End: 02-36-7705Yuektf-up /05/2025 1:00 PM EST Visit (SP) Office Hematology/Oncology [address] [place], [place] [phone] Lo Hancock MD [address] [place] [place] [address] Follow upHematology/OncologyComment on above:Follow upStart: 04-11-2024 End: 20-40-6165Lhlembo evaluation of patient and madrrm4904/11/2024 11:20 AM EST Nurse Visit Radiation Oncology [address] [place] [address] [place] [address] [phone] Tolu Nurse Radiation Ed Radt [address] [place] [address] [place] [address] Rad EdRadiation OncologyComment on above:Rad EdStart: 04-11-2024 End: 76-73-1157Jpxudhi encounter procedureRadiation OncologyComment on above:PRE SIM POSSIBLE SBRT LUNG, IV CONTRAST, NEEDS CONSENTSIM POSSIBLE SBRT LUNG, IV CONTRAST, NEEDS CONSENTStart: 04-09-2024 End: 21-94-5654Tgrtvqt encounter procedureProMagruder Hospital - VascularStart: 04-04-2024 End: 05-50-6613FQ.doppler Extremity arteries - bilateral for physiologic artery studyVas art doppler lwr bilat mult lev/PVR Vascular Ultrasound Routine Occlusive disease, 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) Expected: 04/04/2024 (Approximate), Expires: 10/02/2024[facility] Work Phone: Comment on above:Expected: 04/04/2024 (Approximate), Expires: 10/02/2024Start: 04-03-2024 End: 39-07-9729Rjantzy encounter procedureRadiology Pet CTComment on above:PET NM PET/CT SKULL-THIGH SUBSEQUENTPETStart: 03-23-2024 End: 06-15-7916Pxvdozu encounter /17/2025 2:30 PM EST Office Visit Palliative Medicine [address] [place] [address] [place] [address] Joey Scott, WOOL SHEARER.[employer] [address] [place] [address] 3 month follow upPalliative MedicineComment on above: 3 month follow upStart: 95-23-7044Vcihextyqm A1c measurementDiabetes: Hemoglobin Q4CKTWG HealthcareStart: 01-12-2025Medicare Annual Wellness (AWV)Medicare Annual Wellness (AWV)[facility] HealthcareStart: 03-15-2024 End: 20-06-6476Zobgcaf encounter thajtymtg87/09/2025 1:30 PM EST Office Visit [facility] [address] [place] [phone] [place] [address] [place] [address] [place] [address] Tung Low MD [address] [place] [phone] [facility] CardiologyStart: 28-33-7249Bzqryzs Directive DiscussionAdvance Directive DiscussionClegalion hospital ClinicStart: 01-01-2025Medicare Advantage Annual Wellness VisitMedicare Advantage Annual Wellness VisitKettering Memorial Hospitaltart: 03-05-2024 End: 91-43-1463Pndfvxs encounter quazthomo99/30/2024 10:30 AM EST Office Visit [facility] [address] [place] [address] Olegario Moreira MD [address] [facility] [address] [place] [address] Gary Owen MD [address] [place] [address] [facility] CardiologyStart: 02-27-2024 End: 75-14-2154Nzwdpc-up airorihqb44/23/2024 11:00 AM EST Visit (SP) Office Hematology/Oncology [address] [place] [address] Lo Hancock MD [address] [place] [place] [address] follow upHematology/OncologyComment on above:[address] follow upStart: 02-27-2024 End: 97-51-5317Lcsxatl encounter muamvbhkp63/23/2024 10:45 AM EST Office Visit [facility] [address] [place] [address] [facility] LaboratoryComment on above:LabsStart: 02-24-2024 End: 36-76-2538Ebywrz-up ueaznhqir34/20/2024 2:40 PM EST Visit (SP) Office Hematology/Oncology [address] [place], [place] [phone] Lo aHncock MD [address] [place] [place] [address] follow upHematology/OncologyComment on above:[address] follow upStart: 02-24-2024 End: 53-50-4321Thmdlxc encounter pwrzrdbse98/20/2024 2:30 PM EST Office Visit [facility] [address] [place] [address] [facility] LaboratoryComment on above:LabsStart: 02-08-2024 End: 64-11-6357Vkjogdu encounter zlmgkmzip07/04/2024 11:00 AM EST Office Visit Thoracic Surgery [address] [place], [place] [phone] [place] [address] [address] [place], [place] [address] discuss CT resultsThoracic SurgeryComment on above:discuss CT resultsStart: 01-25-2024 End: 03-27-2040Sspwwrb encounter ibgsokaxj03/20/2024 9:15 AM EST Appointment Radiology Pet CT [address] [place] [address] [place] [address] CT CAP Radiology Pet CTComment on above:CT CAPStart: 01-18-2024 End: 66-50-8007AHF W Auto Differential panel - BloodCOMPLETE BLOOD COUNT AND DIFFERENTIAL Lab Routine Malignant neoplasm of lung, unspecified laterality, unspecified part of lung (HCC) Malignant neoplasm of upper lobe of left lung (HCC) Expected: 01/18/2024 (Approximate), Expires: 12/27/2024[facility] Comment on above:Expected: 01/18/2024 (Approximate), Expires: 12/27/2024Start: 01-18-2024 End: 35-78-6032Ehddrajbgqehg metabolic 2000 panel - Serum or PlasmaCOMPREHENSIVE METABOLIC PANEL Lab Routine Malignant neoplasm of lung, unspecified laterality, unspecified part of lung (HCC) Malignant neoplasm of upper lobe of left lung (HCC) Expected: 01/18/2024 (Approximate), Expires: 12/27/2024[facility] Comment on above:Expected: 01/18/2024 (Approximate), Expires: 12/27/2024Start: 01-18-2024 End: 18-83-7869ZL Abdomen and Pelvis W contrast IVCT ABD/PEL W IVCON Radiology Routine Malignant neoplasm of lung, unspecified laterality, unspecified part of lung (HCC) Malignant neoplasm of upper lobe of left lung (HCC) Expected: 01/18/2024 (Approximate), Expires: 01/26/2025[facility] Work Phone: Comment on above:Expected: 01/18/2024 (Approximate), Expires: 01/26/2025Start: 01-18-2024 End: 40-44-5544LV Chest W contrast IVCT CHEST W IVCON Radiology Routine Malignant neoplasm of lung, unspecified laterality, unspecified part of lung (HCC) Malignant neoplasm of upper lobe of left lung (HCC) Expected: 01/18/2024 (Approximate), Expires: 01/26/2025[facility] ClinicComment on above:Expected: 01/18/2024 (Approximate), Expires: 01/26/2025Start: 01-17-2024 End: 61-84-2835Grjesdy encounter zfgdynbrz39/12/2024 10:15 AM EST Office Visit [facility] [address] [place] [phone] Dick Miranda MD [address] [place] [address] [facility] CWSharon FMStart: 01-03-2024 End: 87-01-3414Dxhfnrd encounter procedureNOMS CI ORTHOPAEDICSComment on above: ArrivedStart: 12-29-2023 End: 13-21-3469Socjhcl encounter procedureNOMS CWM FMComment on above:Arrived Start: 12-28-2023 End: 78-89-1901Vocbmf-up encounterHematology/OncologyComment on above:3 week lab follow up and chemotx Carbo/Taxol/NivoStart: 12-28-2023 End: 41-48-7489Prntjca encounter seazfawdh87/23/2024 9:15 AM EDT Office Visit [facility] [address] [facility] [place] [address] 3 week lab follow up and chemotx Carbo/Taxol/NivoNortMyMichigan Medical Center Gladwin LaboratoryComment on above:3 week lab follow up and chemotx Carbo/Taxol/NivoStart: 12-23-2023 End: 79-40-1579Xrwwdry encounter agamlykjh95/18/2024 1:00 PM EDT Office Visit Palliative Medicine [address] [place] [address] Joey Scott, WOOL SHEARER.[employer] [address] [place] [phone] New Referral for Pall MedPalliative MedicineComment on above:New Referral for Pall MedStart: 12-07-2023 End: 58-74-0330Afphkw-up encounterHematology/OncologyComment on above:3 week lab follow up and chemotx Carbo/Taxol/NivoStart: 12-07-2023 End: 96-95-7217Uljzlok encounter tepdcpero49/02/2024 9:15 AM EDT Office Visit [facility] [address] [place] [address] [place] [address] 3 week lab follow up and chemotx Carbo/Taxol/NivoNorth [facility] LaboratoryComment on above:3 week lab follow up and chemotx Carbo/Taxol/NivoStart: 11-29-2023 End: 62-72-0114Ujotpvgwa irgujdq4611/29/2023 12:45 PM EDT Education Nutrition Therapy [address] [place] [address] Rhea Goddard, RD [address] [place] [place] [address] Primary malignant neoplasm of bronchus of left upper lobe (HCC) [C34.12] Nutrition TherapyComment on above:Primary malignant neoplasm of bronchus of left upper lobe (HCC) [C34.12]Start: 11-29-2023 End: 15-41-5374rbwqbwtcwt09/24/2024 12:00 PM EDT Visit (SP) Office Hematology/Oncology [address] [place] [address] Nancy Osorio LMT PT WILL BE IN LOBBYHematology/OncologyComment on above:PT WILL BE IN LOBBYStart: 11-25-2023 End: 39-32-3819FOU W Auto Differential panel - BloodCOMPLETE BLOOD COUNT AND DIFFERENTIAL Lab Routine Malignant neoplasm of upper lobe of left lung (HCC) Expected: 11/25/2023 (Approximate), Expires: 11/15/2024[facility] Work Phone: Comment on above:Expected: 11/25/2023 (Approximate), Expires: 11/15/2024Start: 11-25-2023 End: 37-20-6601Omcprpoqd (Vitamin B12) [Mass/volume] in Serum or PlasmaVITAMIN B12 Lab Routine Malignant neoplasm of upper lobe of left lung (HCC) Expected: 11/25/2023 (Approximate), Expires: 11/15/2024[facility] ClinicComment on above: Expected: 11/25/2023 (Approximate), Expires: 11/15/2024Start: 11-25-2023 End: 44-49-1837Fyczbbledxcnw metabolic 2000 panel - Serum or PlasmaCOMPREHENSIVE METABOLIC PANEL Lab Routine Malignant neoplasm of upper lobe of left lung (HCC) Expected: 11/25/2023 (Approximate), Expires: 11/15/2024[facility] ClinicComment on above:Expected: 11/25/2023 (Approximate), Expires: 11/15/2024Start: 11-25-2023 End: 02-13-4161Olzututb [Mass/volume] in Serum or PlasmaFERRITIN Lab Routine Malignant neoplasm of upper lobe of left lung (HCC) Expected: 11/25/2023 (Appro ximate), Expires: 11/15/2024[facility] ClinicComment on above:Expected: 11/25/2023 (Approximate), Expires: 11/15/2024Start: 11-25-2023 End: 46-67-6356Cnaack [Mass/volume] in Serum or PlasmaFOLATE, SERUM Lab Routine Malignant neoplasm of upper lobe of left lung (HCC) Expected: 11/25/2023 ( Approximate), Expires: 11/15/2024[facility] ClinicComment on above:Expected: 11/25/2023 (Approximate), Expires: 11/15/2024Start: 11-25-2023 End: 21-85-5494Qsrs and Iron binding capacity panel - Serum or PlasmaIRON AND TIBC Lab Routine Malignant neoplasm of upper lobe of left lung (HCC) Expected: 11/25/2023 (Approximate), Expires: 5Clevelfirsthealth [facility] ClinicComment on above: Expected: 11/25/2023 (Approximate), Expires: 11/15/2024Start: 11-25-2023 End: 15-67-2157shnnaygsmy85/20/2024 9:45 AM EDT Infusion Center Hematology/Oncology [address] [facility] [place] [address] david counts lab check, patient to stay for results ; lab drawn at 930 Hematology/OncologyComment on above:david counts lab check, patient to stay for results ; lab drawn at 930Start: 11-25-2023 End: 56-03-4552Yaamvth encounter pcuxdmvyo81/20/2024 9:30 AM EDT Office Visit [facility] [address] [place] [address] david counts lab check, patient to stay for results ; lab drawn at [address] [place] [address] LaboratoryComment on above:david counts lab check, patient to stay for results ; lab drawn at 930Start: 11-24-2023 End: 84-85-7235tvcsiguspr05/19/2024 10:15 AM EDT [facility] Hematology/Oncology [address] [place] [address] [place] [address] david counts lab check, patient to stay for results ; lab drawn at 930 Hematology/OncologyComment on above:david counts lab check, patient to stay for results ; lab drawn at 930Start: 11-24-2023 End: 26-36-7635Rtbbzzm encounter ukndavcsh84/19/2024 10:00 AM EDT Office Visit [facility] [address] [facility] [place] [address] david counts lab check, patient to stay for results ; lab drawnat 930[facility] LaboratoryComment on above:david counts lab check, patient to stay for results ; lab drawn at 930Start: 11-16-2023 End: 92-52-4353jyjshdfsgn04/11/2024 4:15 PM EDT Visit () Office Hematology/Oncology [address] [facility] [place], [place] [phone] Lo Hancock MD [address] [place] [address] Appt after EBUS on 10-[address] Oreilly on 11-09-23. Hematology/OncologyComment on above:Appt after EBUS on 10-[address] Oreilly on 11-09-23.Start: 11-16-2023 End: 18-22-5663Qjfrlv-up encounterHematology/OncologyComment on above:lab follow up and chemotx Carbo/Taxol/NivoStart: 11-16-2023 End: 97-21-1182Gbzxezh encounter nducffvqh28/11/2024 9:00 AM EDT Office Visit [facility] [address] [place] [address] lab follow up and chemotx Carbo/Taxol/NivoNortMyMichigan Medical Center Gladwin LaboratoryComment on above:lab follow up and chemotx Carbo/Taxol/NivoStart: 11-10-2023 End: 47-01-7517Ykikxne encounter wffgugldw67/05/2024 12:45 PM EDT Office Visit Kiara Aguiar [place] [facility] - Medical Oncology [facility] [place] [address] Gerald Abdi MD [address] [facility] [address] [place] [address] Kiara Aguiar [place] [facility] - Medical OncologyStart: 11-09-2023 End: 01-93-6147Zqmifnd encounter /04/2024 1:00 PM EDT Office Visit Thoracic Surgery [address] [place] [address] [place] [address] [place], [place] [address] Consult: Malignant Neoplasm of upper lobe of left lungThoracic SurgeryComment on above:Consult: Malignant Neoplasm of upper lobe of left lung Start: 57-57-3848Nkwrz-19 Vaccine ( season)Covid-19 Vaccine ()[facility]: 14-42-2838Hocvs-19 Vaccine ( season)Covid-19 Vaccine ()[facility]: 11-06-2023 Influenza vaccinationKettering Memorial Hospitaltart: 11-03-2023 End: 06-22-3352Wqjpouu encounter /29/2024 10:15 AM EDT Office Visit Kiara Csome [facility] - Medical Oncology [address] [place] [address] Gerald Abdi MD [address] [facility] [address] [place], [place] [phone] Kiara L [facility] - Medical OncologyStart: 11-02-2023 End: 63-38-9326Iumygtd encounter zryoblwow60/28/2024 1:30 PM EDT Office Visit Thoracic Surgery [address] [place] [address] [place] [address] [place] [address] Consult: Malignant Neoplasm of upper lobe of left lung Thoracic SurgeryComment on above:Consult: Malignant Neoplasm of upper lobe of left lungStart: 11-01-2023 End: 75-30-6607Kxrpppkns to same day surgery usmcgi3611/01/2023 1:30 PM EDT - 11/01/2023 3:00 PM EDT Surgery [facility] - ENDO [address] [place] [address] Hugh Craig MD [address] [place], [place] [id number] BRONCHOSCOPY,RIGID/FLEXIBLE W/ FLUORO,W/ENDOBRONCHIAL ULTRASOUND (EBUS) GUIDED TRANSTRACHEAL/ TRANSBRONCHIAL ASPIRATION/BIOPSY,1 OR 2 MEDIASTINAL AND/OR HILAR LYMPH NODE STATIONS/STRUCTURESCambridge Hospital Endoscopy - ENDOComment on above:BRONCHOSCOPY,RIGID/FLEXIBLE W/ FLUORO,W/ENDOBRONCHIAL ULTRASOUND (EBUS) GUIDED TRANSTRACHEAL/ TRANSBRONCHIAL ASPIRATION/BIOPSY,1 OR 2 MEDIASTINAL AND/OR HILAR LYMPH NODE STATIONS/STRUCTURESStart: 71-44-0500Pwefmxapue hospital visit by kaeyiiygc99/27/2024 1:30 PM EDT Hospital Encounter [facility] - ENDO [address] [place] [address] Hugh Craig MD [address] [place] [address] Lung nodule [R91.1][facility] - ENDOComment on above:Lung nodule [R91.1]Start: 11-01-2023 End: 92-08-2042Dmcikhh ebus guided sampl 1/2 node station/strux BRONCHOSCOPY,RIGID/FLEXIBLE W/ FLUORO,W/ENDOBRONCHIAL ULTRASOUND (EBUS) GUIDED TRANSTRACHEAL/ TRANSBRONCHIAL ASPIRATION/BIOPSY,1 OR 2 MEDIASTINAL AND/OR HILAR LYMPH NODE STATIONS/STRUCTURES Lung nodule 11/01/2023 12:10 PM EDTFV GIStart: 11-01-2023 End: 72-93-5407Hxngiam ebus guided sampl 1/2 node station/struxFV GIStart: 10-28-2023 End: 96-76-0945bqdqreiwhf08/23/2024 11:00 AM EDT Distance Health Pulmonology [facility] [address] [place] [address] Nancy Elizondo, WOOL SHEARER.S[employer] CLEANING HAND [address] [place] [address] H/P BRONCH 10/31Pulmonology [facility] Comment on above:H/P BRONCH 10/31Start: 10-26-2023 End: 25-78-6117Fyqmghfwxw esqspuxslhus66/21/2024 2:20 PM EDT PAT Pre Anesthesia [address] [facility] [place] [address] 2, Pacc [place] [address] [facility] [place] [address] in person per RN ASAPPre AnesthesiaComment on above:in person per RN ASAPStart: 10-25-2023 End: 17-93-6213Tgpotol encounter wiebjsjbm51/20/2024 10:00 AM EDT Office Visit [facility] [address] [place] [address] JesusSusan tucker, WOOL SHEARER-S[employer] CLEANING HAND [address] [facility] [address] [place] [address] [facility] NeurologyStart: 10-21-2023 End: 00-20-1268jwcjkpzkkk46/16/2024 4:30 PM EDT Visit (SP) Office Hematology/Oncology [address] [place], [place] [phone] Lo Hancock MD [address] [place] [address] abdi second opinion dx lung cancerPET scan scheduled 10/21/2023 dary AlasHematology/OncologyComment on above:ref dr abdi second opinion dx lung cancerPET scan scheduled 10/21/2023 dary AlasStart: 10-21-2023 End: 86-25-0647Axsrdaj encounter orzozuqqh43/16/2024 8:30 AM EDT Appointment [facility] [address] [place] [address] [facility] Kiara Aguiar [facility] Start: 10-20-2023 End: 03-68-1365Tacqkyh encounter wvaczkbqf11/15/2024 12:00 PM EDT Office Visit [facility] [address] [place] [address] Estefany Lang, DO [address] [address] [facility] Pulmonary/Sleep MedicineStart: 10-19-2023 End: 85-81-3795Wkvoqxn encounter /14/2024 10:00 AM EDT Office Visit [facility] [address] [place] [address] Dick Miranda MD [address] [place] [address] [facility] FMStart: 10-13-2023 End: 11-41-8221Zmtqryp encounter yadieihcw28/08/2024 3:30 PM EDT Office Visit Kiara L [facility] - Medical Oncology [address] [place] [address] Gerald Abdi MD [address] [facility] [address] [place] [address] Kiara L [facility] - Medical OncologyStart: 10-05-2023 End: 32-51-5346Lhxlvuo encounter /31/2024 1:00 PM EDT Appointment [facility] - Interventional Radiology [address] [place] [address] [phone] [facility] - Interventional Radiology Start: 10-03-2023 End: 63-15-7816Hypphur encounter vddpaiydl31/29/2024 1:00 PM EDT Office Visit [facility] [address] [place] [address] [place] [address] Olegario Moreira MD [address] [facility] [address] [place] [address] [facility] VascularStart: 09-26-2023 End: 97-13-9868Ifchjhv encounter qwemtdptq34/22/2024 8:00 AM EDT Appointment [facility] [address] [place] [address] Olegario Moreira MD [address] [facility] [address] [place] [address] [facility] - CT ImagingStart: 09-22-2023 End: 10-11-8382Fvldfwf encounter xcfzaclow37/18/2024 9:50 AM EDT Office Visit [facility] [address] [place] [address] Susan Claudio MD [address] [place] [address] [facility]: 65-79-2450Azcadjbql vaccination Influenza Vaccine (#1)[facility] HealthcareComment on above:Postponed from 11/05/2022 (Patient Refused)Start: 06-27-2023 End: 39-00-7361KTL Abdominal Aorta and Bilateral Runoff Vessels W contrast IVCT angiogram abdominal aorta with runoff Imaging Routine Occlusive disease, arterial Expected: 06/27/2023, Expires: 06/26/2024[facility] Work Phone: Comment on above:Expected: 06/27/2023, Expires: 06/26/2024Start: 06-17-2023 End: 18-31-9512Uydnmaf encounter ymfcoplwq50/12/2024 9:00 AM EDT Office Visit [facility] [address] [place] [address] Mildred Georges NP [address] [place], [place] [address] [facility] FMStart: 06-56-9842Jzqfvhy ScreeningTobacco Screening [facility] SystemStart: 04-20-2023 End: 40-82-4319Lpjuenukjhx [Units/volume] in Serum or PlasmaTSH Lab Routine Hypothyroidism, postradioiodine therapy (CMS/HCC) Expected: 04/20/2023 (Approximate), Expires: 04/20/2024[facility] Work Phone: Comment on above:Expected: 04/20/2023 (Approximate), Expires: 04/20/2024Start: 04-20-2023 End: 71-06-8771Krhjopbjt (T4) free [Mass/volume] in Serum or PlasmaT4, free Lab Routine Hypothyroidism, postradioiodine therapy (CMS/HCC) Expected: 04/20/2023 (Approximate), Expires: 04/20/2024NOCT HealthcareComment on above:Expected: 04/20/2023 (Approximate), Expires: 04/20/2024Start: 04-20-2023 End: 00-36-7135Mmwejvnemagyrpik (T3) Free [Mass/volume] in Serum or PlasmaT3, free Lab Routine Hypothyroidism, postradioiodine therapy (CMS/HCC) Expected: 04/20/2023 (Approximate), Expires: 04/20/2024NOCT HealthcareComment on above: Expected: 04/20/2023 (Approximate), Expires: 04/20/2024Start: 85-63-6952Ewkixek Directive DiscussionAdvance Directive DiscussionKettering Memorial Hospitaltart: 94-80-9467Ueeig-19 Vaccine ()Covid-19 Vaccine ()[facility]: 90-67-2188Onzbp-19 Vaccine () Covid-19 Vaccine ()[facility]: 84-53-7281Mwkwtvvsh aortic aneurysm screeningAbdominal Aortic Aneurysm (AAA) ScreenAtrium Health Lincolntart: 58-93-0774Whfa Risk ScreeningFall Risk ScreeningAtrium Health Lincolntart: 93-02-6714Sprydecvj for malignant neoplasm of colonSelect Medical [facility] Start: 91-96-9891NRZ Vaccine (1 - 1-dose 60+ series)RSV Vaccine (1 - 1-dose 60+ series)[facility]: 29-67-4957QIF Vaccine (1 - Risk 60-74 years 1-dose series)RSV Vaccine (1 - Risk 60-74 years 1-dose series)[facility]: 22-94-2686Cswckjxzh for malignant neoplasm of colonKettering Memorial Hospitaltart: 40-56-4908Jrrfpmbktw acid therapyAlpha-1 Antitrypsin Deficiency Screening [facility]: 73-09-7829ORoB,Tdap and Td Vaccines (1 - Tdap)DTaP,Tdap and Td Vaccines (1 - Tdap)[facility]: 74-54-3638Uyybk microalbumin profileDTaP,Tdap,Td Vaccine (1 - Tdap)[facility]: 44-69-8900Ewqoo BMI Follow Up PlanAdult BMI Follow Up PlanProMercy Health Springfield Regional Medical Centertart: 65-98-7674Mykhhu PCP Team Chronic Disease VisitAnnual PCP Team Chronic Disease VisitKettering Memorial Hospitaltart: 03-09-3302Yzlhxoa ScreeningAnxiety ScreeningKettering Memorial Hospitaltart: 77-89-1217ZF Controlled (<130/80)BP Controlled (<130/80)[facility]: 06-73-0934Xolywhcckq ScreeningDepression ScreeningKettering Memorial Hospitaltart: 15-48-7071Cshpivmhx C screeningHepatitis C ScreeningKettering Memorial Hospitaltart: 97-18-7322NsextbqlqqVfjuetfhrnWwiffbeyr Clinic Start: 81-21-9922Zxugnxpxpp ScreeningDepression ScreeningNationwide Children's [facility] Start: 09-29-1956Medicare Annual Wellness VisitMedicare Annual Wellness Visit [facility]art: 49-92-7450Jnhtrbnkx for malignant neoplasm of colonNOMS HealthcareStart: 58-28-3649Umljxkn CounselingTobacco Counseling [facility] End: 19-54-0003YYH W Auto Differential panel - BloodCOMPLETE BLOOD COUNT AND DIFFERENTIAL Lab Routine Malignant neoplasm of upper lobe of left lung (HCC) Immunotherapy Abnormal blood chemistry Malaise and fatigue Every 3 weeks for 18 Occurrences starting 11/15/2023 until 11/14/2024leveland ClinicComment on above:Every 3 weeks for 18 Occurrences starting 11/15/2023 until 11/14/2024 End: 56-83-0716WCB W Auto Differential panel - BloodCOMPLETE BLOOD COUNT AND DIFFERENTIAL Lab Routine Malignant neoplasm of upper lobe of left lung (HCC) Abnormal blood chemistry Malaise and fatigue Once per month for 12 Occurrences starting 04/11/2024 until 04/11/2025leveland ClinicComment on above:Once per month for 12 Occurrences starting 04/11/2024 until 04/11/2025 End: 22-88-8778Smgdattobplsd metabolic 2000 panel - Serum or PlasmaCOMPREHENSIVE METABOLIC PANEL Lab Routine Malignant neoplasm of upper lobe of left lung (HCC) Immunotherapy Abnormal blood chemistry Malaise and fatigue Every 3 weeks for 18 Occurrences starting 11/15/[address] [place] [address] Work Phone: Comment on above:Every 3 weeks for 18 Occurrences starting 11/15/2023 until 11/14/2024 End: 96-34-5439Hixzatuxfhigh metabolic 1999 panel - Serum or PlasmaCOMPREHENSIVE METABOLIC PANEL Lab Routine Malignant neoplasm of upper lobe of left lung (HCC) Abnormal blood chemistry Malaise and fatigue Once per month for 12 Occurrences starting 04/11/2024 until 04/11/2025[facility] Work Phone: Comment on above:Once per month for 12 Occurrences starting 04/11/2024 until 04/11/2025 End: 81-02-7954Pevvoyzq [Mass/volume] in Serum or PlasmaCORTISOL, SERUM Lab Routine Malignant neoplasm of upper lobe of left lung (HCC) Immunotherapy Abnorm al blood chemistry Malaise and fatigue Every 6 weeks for 9 Occurrences starting 11/15/2023 until 11/14/2024[facility] HospitalComment on above:Every 6 weeks for 9 Occurrences starting 11/15/2023 until 11/14/2024 End: 60-08-7812Yoocleye [Mass/volume] in Serum or PlasmaCORTISOL, SERUM Lab Routine Malignant neoplasm of upper lobe of left lung (HCC) Abnormal blood chemi stry Malaise and fatigue Once per month for 12 Occurrences starting 04/11/2024 until 04/11/2025[facility] HospitalComment on above:Once per month for 12 Occurrences starting 04/11/2024 until 04/11/2025 End: 52-48-7161Rsmslxtynz includes GFR, serumCreatinine includes GFR, serum Lab Routine Occlusive disease, arterial 1 Occurrences starting 06/27/2023 until 06/26/2024[facility] SystemComment on above:1 Occurrences starting 06/27/2023 until 06/26/2024 End: 20-35-8952FCN COMPLETEECG COMPLETE ECG Routine Lung nodule 1 Occurrences starting 10/24/2023 until 10/23/2024[facility] Work Phone: Comment on above:1 Occurrences starting 10/24/2023 until 10/23/2024ECG COMPLETEECG COMPLETE ECG 10/25/2023 11:15 AM [facility] End: 56-16-9823LvfyiezekkwtymunOPFZ Cardiology Routine Preoperative cardiovascular examination 1 Occurrences starting 02/08/2024 until 02/07/2025 [facility] ShawComment on above:1 Occurrences starting 02/08/2024 until 02/07/2025 End: 29-54-6621Kixcvhcpzx A1c in BloodHEMOGLOBIN A1C Lab Routine Malignant neoplasm of upper lobe of left lung (HCC) Immunotherapy Abnormal blood chemistry Malaise and fatigue Every 6 weeks for 9 Occurrences starting 11/15/2023 until 11/14/2024[facility] HospitalComment on above:Every 6 weeks for 9 Occurrences starting 11/15/2023 until 11/14/2024 End: 85-71-3458DZQP DIFFUSION CAPACITY (DLCO)LUNG DIFFUSION CAPACITY (DLCO) PFT Routine Preoperative testing 1 Occurrences starting 02/08/2024 until 03/09/2025 [facility] ShawComment on above:1 Occurrences starting 02/08/2024 until 03/09/2025 End: 16-15-4825CO Brain WO and W contrast IVMRI BRAIN WO/W IVCON Radiology Routine Immunotherapy Nonintractable headache, unspecified chronicity pattern, unspecified headache type 1 Occurrences starting 08/01/2024 until 08/31/2025 [facility] Work Phone: Comment on above:1 Occurrences starting 08/01/2024 until 08/31/2025 End: 16-23-9589UL Heart Perfusion W stress and W radionuclide IVNM CARDIAC PERF STRESS/PHARM Radiology Routine Preoperative cardiovascular examination 1 Occurrences starting 02/08/2024 until 03/09/2025[facility] Work Phone: Comment on above:1 Occurrences starting 02/08/2024 until 03/09/2025 End: 81-15-2350SF Lung Perfusion quantitativeNM LUNG QUANT PERFUSION Radiology Routine Preoperative testing Encounter for preoperative vascular examination 1 Occurrences starting 02/08/2024 until 03/09/2025[facility] HospitalComment on above:1 Occurrences starting 02/08/2024 until 03/09/2025OUTSIDE SURG PATH SLIDE REVIEWOUTSIDE SURG PATH SLIDE REVIEW Lab Routine Malignant neoplasm of upper lobe of left lung (HCC) Ordered: [facility] Work Phone: Comment on above:Ordered: 10/24/2023atient Education Oxycodone Prednisone Know your [facility] Work Phone: [facility] Work Phone: End: 13-61-0453ZDD+CT Guidance for localization of tumor of Skull base to mid-thigh-- W 18F-FDG IVNM PET/CT SKULL-THIGH SUBSEQUENT Radiology Routine Malignant neoplasm of unspecified part of unspecified bronchus or lung (HCC) 1 Occurrences starting 03/13/2024 until 6[facility] Work Phone: Comment on above:1 Occurrences starting 03/13/2024 until 04/12/2025 End: 89-21-0346IBB+CT Guidance for localization of tumor of Skull base to mid-thigh-- W 18F-FDG IVNM PET/CT SKULL-THIGH SUBSEQUENT Radiology Routine Syncope and collapse Malignant neoplasm of upperlobe of left lung (HCC) 1 Occurrences starting 07/20/2024 until 6[facility] Work Phone: Comment on above:1 Occurrences starting 07/20/2024 until 08/19/2025 End: 45-93-9329Oeopjpinj function test Spirometry (Flow Volume Loop) pre/post short acting bronchodilator w/ DLCO (diffusion study)Pulmonary function test Spirometry (Flow Volume Loop) pre/post short acting bronchodilator w/ DLCO ( diffusion study) PFT Routine Squamous carcinoma of lung, left (CMS-HCC) 1 Occurrences starting 10/13/2023 until 10/12/2024[facility] Work Phone: Comment on above:1 Occurrences starting 10/13/2023 until 10/12/2024 End: 95-03-2959OAX MINUTE WALKSIX MINUTE WALK PFT Routine Preoperative testing 1 Occurrences starting 02/08/2024 until 03/09/2025leveland ClinicComment on above:1 Occurrences starting 02/08/2024 until 03/09/2025 End: 31-70-6491AISDZMYGHG BASELINE ONLYSPIROMETRY BASELINE ONLY PFT Routine Preoperative testing 1 Occurrences starting 02/08/2024 until 6C[facility] ClinicComment on above:1 Occurrences starting 02/08/2024 until 03/09/2025 End: 43-76-0868Tseogijbawg [Units/volume] in Serum or PlasmaTHYROID STIMULATING HORMONE Lab Routine Malignant neoplasm of upper lobe of left lung (HCC) Immunoth erapy Abnormal blood chemistry Malaise and fatigue Every 6 weeks for 9 Occurrences starting 11/15/2023 until 5C[facility] ClinicComment on above:Every 6 weeks for 9 Occurrences starting 11/15/2023 until 11/14/2024 End: 85-42-4968Ulvpptoldxj [Units/volume] in Serum or PlasmaTHYROID STIMULATING HORMONE Lab Routine Malignant neoplasm of upper lobe of left lung (HCC) Abnormal blood chemistry Malaise and fatigue Once per month for 12 Occurrences starting 04/11/2024 until 04/11/2025leveland ClinicComment on above:Once per month for 12 Occurrences starting 04/11/2024 until 04/11/2025Urine screening for protein Diabetes: Urine Protein ScreeningNOMS HealthcareUrine screening for protein Diabetes: Urine Protein ScreeningNOMS HealthcareUrine screening for protein Diabetes: Urine Protein ScreeningNOMS HealthcareUrine screening for protein Diabetes: Urine Protein ScreeningNOMS HealthcareUrine screening for protein Diabetes: Urine Protein ScreeningNOMS HealthcareUrine screening for protein Diabetes: Urine Protein ScreeningNOMS HealthcareUrine screening for protein Diabetes: Urine Protein ScreeningNOMS HealthcareUrine screening for protein Diabetes: Urine Protein ScreeningNOMS HealthcareUrine screening for protein Diabetes: Urine Protein ScreeningNOMS HealthcareUrine screening for protein Diabetes: Urine Protein ScreeningNOMS HealthcareUrine screening for protein Diabetes: Urine Protein ScreeningNOMS HealthcareUrine screening for protein Diabetes: Urine Protein ScreeningNOMS HealthcareUrine screening for protein Diabetes: Urine Protein ScreeningNOMS HealthcareUrine screening for protein Diabetes: Urine Protein ScreeningNOMS HealthcareUrine screening for protein Diabetes: Urine Protein ScreeningNOMS HealthcareUrine screening for protein Diabetes: Urine Protein ScreeningNOMS HealthcareUrine screening for protein Diabetes: Urine Protein ScreeningNOMS HealthcareUrine screening for protein Diabetes: Urine Protein ScreeningNOMS HealthcareUrine screening for protein Diabetes: Urine Protein ScreeningNOMS HealthcareUrine screening for protein Diabetes: Urine Protein ScreeningNOMS HealthcareUrine screening for protein Diabetes: Urine Protein ScreeningNOMS HealthcareUrine screening for protein Diabetes: Urine Protein ScreeningNOMS HealthcareUrine screening for protein Diabetes: Urine Protein ScreeningNOMS HealthcareUrine screening for protein Diabetes: Urine Protein ScreeningNOMS HealthcareUrine screening for protein Diabetes: Urine Protein ScreeningNOMS HealthcareUrine screening for protein Diabetes: Urine Protein ScreeningNOMS HealthcareUrine screening for protein Diabetes: Urine Protein ScreeningNOMS HealthcareUrine screening for protein Diabetes: Urine Protein ScreeningNOMS HealthcareUrine screening for protein Diabetes: Urine Protein ScreeningNOMS HealthcareUrine screening for protein Diabetes: Urine Protein ScreeningNOMS HealthcareUrine screening for protein Diabetes: Urine Protein ScreeningNOMS HealthcareUrine screening for protein Diabetes: Urine Protein ScreeningNOMS HealthcareUrine screening for protein Diabetes: Urine Protein ScreeningNOMS HealthcareUrine screening for protein Diabetes: Urine Protein ScreeningNOMS HealthcareUrine screening for protein Diabetes: Urine Protein ScreeningNOMS HealthcareUrine screening for protein Diabetes: Urine Protein ScreeningNOMS HealthcareUrine screening for protein Diabetes: Urine Protein ScreeningNOMS HealthcareUrine screening for protein Diabetes: Urine Protein ScreeningNOMS HealthcareUrine screening for protein Diabetes: Urine Protein ScreeningNOMS HealthcareUrine screening for protein Diabetes: Urine Protein ScreeningNOMS HealthcareUrine screening for protein Diabetes: Urine Protein ScreeningNOCT HealthcareUrine screening for protein Diabetes: Urine Protein [facility]eningSaint [facility] End: 70-06-9461DA Chest PA and LateralXR CHEST 2V FRONTAL/LAT Radiology Routine Preoperative testing 1 Occurrences starting 02/14/2024 until 03/16/2025[facility] Work Phone: Comment on above:1 Occurrences starting 02/14/2024 until 03/16/2025 End: 52-96-2157FG Chest PA and LateralXR CHEST 2V FRONTAL/LAT Radiology Routine Radiation-induced pulmonary fibrosis (HCC) Shortness of breath 1 Occurrences starting 10/25/2024 until 11/24/2025[facility] Work Phone: Comment on above:1 Occurrences starting 10/25/2024 until 11/24/2025 Immunizations Immunization DateImmunizationNotesCare AlaxgflzIkdvsatx53-58-8293zacwmqrtelar polysaccharide vaccine, 23 Nena Miranda MD Work Phone: [phone] [place], [place] [address]Kdjeyptabj31-82-3492vappfc vaccine recombinant Dick Miranda MD Work Phone: [facility] RoadEhvrclcpxw82-34-5575bnxmgg vaccine recombinant Dick Miranda MD Work Phone: [facility] RoadPtdcojxhzg73-75-9421fviahckuglyg conjugate vaccine, 13 Nena Miranda MD Work Phone: [facility] RoadRxcknwmujw99-95-2839iuqeulzrttwv polysaccharide vaccine, 23 Nena Miranda MD Work Phone: [facility] Payers DatePayer CategoryPayerPolicy [id number] 2025Self-pay [id number] 2022Medicare (Managed Care) [id number] [id number] 2018Medicare HMOANTHEM MEDICARE Member Subscriber Plan / Payer (Effective 2017-Present) Name: Erin Pnea Relation to Subscriber: Self Name: Erin Pena Payer ID: [id number] (NAIC) Group ID: [id number] Type: Not on file Address: [facility] [address] [place] [id number] [id number] [id number] 2.16840.1.248490.3.57[id number] 2.16840.1.375492.3.57[id number] 2.840.1.126354.3.57[id number] 2.840.1.009581.3.57[id number] 2.840.1.981430.3.57[id number] 2.840.1.427828.3.57[id number] 2.0.1.394019.3.57[id number] 2.840.1.563964.3.579.[id number] 2.0.1.538635.3.579.2.3[id number] 2.840.1.691073.3.579.2.[id number] 2.840.1.872757.3.579.2.[id number] 2.16840.1.219806.3.579.2.140898-92-8023Psbdqtv98391538 2.840.1.694787.3.579.2.018860-74-7064Khtudbq128050957 2.16840.1.911191.3.579.2.387504-60-6324Lcnhgpn02487594 2.16840.1.140514.3.579.2.604085-09-7207Pqoqsmm754913447 2.16840.1.013538.3.579.2.923266-89-1973Koxiclc441955093 2.16840.1.934503.3.579.2.977973-20-6234Lwguvsr67791098 2.0.1.815485.3.579.2.102952-48-5139Alndgpy06338771 2.0.1.605374.3.579.2.543078-20-1830Ngijgvv29409987 2.0.1.980839.3.579.2.[id number] 2.0.1.297311.3.579.2.790827-41-1604Yajqtdy48525461 2.840.1.974689.3.579.2.256225-79-5564Hshgxqw09084644 2.840.1.900281.3.579.2.743049-67-4298Wfbepfu74456826 2.840.1.657796.3.579.2.525507-54-8388Ljvgyzt71274341 2.16840.1.392515.3.579.2.047201-97-3063Ppbjifu51331389 2.16840.1.057214.3.579.2.[id number] 2.16840.1.251309.3.579.2.763199-34-9590Keqdgay97374176 2.16840.1.301569.3.579.2.161817-42-0493Gowgxsc24109539 2.16840.1.700985.3.579.2.806564-20-7202Witnhxj39382985 2.16840.1.089914.3.579.2.269103-61-3269Gtrvult13271609 2.16840.1.940794.3.579.2.997461-36-8957Qiqudoz55631576 2.16840.1.565057.3.579.2.912478-32-5982Jobhtns04738689 2..1.777654.3.579.2.405253-03-8348Gsuiywf31946835 2.0.1.507446.3.579.2.512711-14-8975Dfzikke7352033 2.16840.1.056274.3.579.2.247855-80-9495Qomqclu6555534 2.0.1.798043.3.579.2.378345-39-8037Bphvgrf6092207 2.0.1.634520.3.579.2.956702-71-0856Bpniaec2136902 2.0.1.471062.3.579.2.821819-51-6403Yqukhmq9257974 2.16840.1.379328.3.579.2.154096-96-3797Myoieoh3907647 2.16840.1.382419.3.579.2.826124-57-2779Gajjihb4352002 2.16840.1.808317.3.579.2.363947-57-8806Ukukzoq9732658 2.16840.1.547686.3.579.2.0265WyqqlrdXAUKN3033940 53624ufa-87s1-2r14-3737-394g9904ah4pMwejxik46903410 2.16.840.1.298217.3.579.2.531 Social History DateTypeDetailFacilityStart: 03-07-1973 End: 54-69-4871Vhtbzuz smoking status NHISSmoker (finding)[facility]: 93-81-1571Vkq [facility]Start: 09-13-2022 End: 75-24-6112Apgibef smoking status NHISSmokes tobacco dailyNOMS Healthcare Start: 03-07-1973 End: 92-64-7949Hninick of tobacco useCigarette SmokerNOMS HealthcareStart: 09-13-2022 End: 84-74-1185Xelxxvzkqx smoked current (pack per day) - Reported0.3[facility] HealthcareStart: 09-13-2022 End: 23-08-7313Sjgfcoc use and exposureSmokeless tobacco non-userNOMS Healthcare Start: 04-20-2023 End: 59-14-5768Kfjoyra intakeCurrent drinker of alcohol (finding)[facility] Start: 04-19-2023 End: 28-48-6987Xafkrswbcja, Afraid, Rape, and Kick questionnaire [HARK][facility] HealthcareWithin the last year, have you been afraid of your partner or ex-partner?NoNOMS HealthcareStart: 20-94-3676By you belong to any clubs or organizations such as yazidism groups, unions, fraternal or athletic groups, or school groups?Patient refusedNOMS HealthcareAre you now , , , , never or living with a partner?MarriedNOMS HealthcareHow often to you have a drink containing alcohol?Monthly or lessNOMS HealthcareHow many standard drinks containing alcohol do you have on a typical day?1 or 2N[facility] HealthcareHow often do you have 6 or more drinks on 1 occasion? NeverNOMS Healthcare(I/We) worried whether (my/our) food would run out before (I/we) got money to buy more.Never trueNOCT HealthcareStart: 25-93-7000Lskvymt CommentSmokes 6-30 mins after waking upUTAH STATE HOSPITAL HealthcareStart: 16-05-5027Lsqbelj Commentcaffeine: 2-3 cups per day coffeeUTAH STATE HOSPITAL HealthcareStart: 09-94-0552Qqi Assigned At BirthNot on fileUTAH STATE HOSPITAL HealthcareHistory of tobacco usePassive smoker [facility]: 07-48-5931Puilptx use and exposureUser of smokeless tobaccoKettering Memorial Hospitaltart: 10-20-2023 End: 93-85-6274Fuyxgkw intakeCurrent non-drinker of alcohol (finding)[facility] Hospital[facility]: 10-21-2023 End: 33-33-3728Kanqzcy smoking status NHISEx-smokerKettering Memorial Hospitaltart: 79-92-3312Zzmnbcc CommentQuit September 26[facility] Hospitaltart: 10-12-2023 End: 21-85-6271Gusipunne beverage intakeEx-drinker (finding)[facility] Start: 82-97-0638Acaflpb CommentmoderateProMccullough-Hyde Memorial Hospital SystemStart: 10-10-2014 SexMale (finding)ProMedicFairview [facility] Medical Center SystemStart: 03-21-7145Impezvc smoking status NHISNever smoked tobacco (finding)[facility] Hospitalt[facility]: 36-98-6672SLTF Follow upSDOH Follow upAk[facility] Work Phone: Goals DatePatient GoalDesired Activity/StatePersonal health goalComment on above: Evaluation of progress towards goal: In progress: Would like to DC to home today, await further tests and consults prior to DCPersonal health goal Functional Status SqndZahubvnvbuAzieekAtjlsoob38-13-8266Yfd you deaf, or do you have serious difficulty hearingNo 08/27/2014 11:07 AM Liliya Amaya MA [facility] 01-47-6070Jfd you blind, or do you have serious difficulty seeing, even when wearing glassesNo 08/27/2014 11:07 AM Liliya Amaya MA [facility] 39-50-6146Lp you have serious difficulty walking or climbing stairsNo 08/27/2014 11:07 AM EDT Liliya Mosley MA [facility]06-23-2015Do you have difficulty dressing or bathingNo 08/27/2014 11:07 AM EDT Liliya Mosley EDUARDO [facility] SystemVofqho91-55-8179Uyltwpk of a physical, mental, or emotional condition, do you have difficulty doing errands alone such as visiting a physician's office or shoppingNo 08/27/2014 11:07 AM EDT Liliya Mosley [facility] Mental Status PqnvRrwzzkoujvObcsmmTvqjgidg47-95-6948Ljwecsk of a physical, mental, or emotional condition, do you have serious difficulty concentrating, remembering, or making decisionsNo 08/27/2014 11:07 AM T Liliya Mosley MA [facility] Clinical Notes 04-20-2023 to 12-07-2024 Note Date & HmaaYpztSwruhkcl09-20-9294 [facility] Note[facility]09-[facility]-20[facility] Note[facility] 11-16-[facility] Note[facility]09-[facility]-2025 Telephone encounter Note* Telephone Encounter - Noemy Chicas RN - 11/09/2024 2:57 PM EDT Results phoned to pt per Dr Hancock. Noemy Chicas RN [facility] Work Phone: [phone] 328-498409-05-2025 Miscellaneous Notes* Telephone Encounter - Noemy Chicas RN - 11/09/2024 2:57 PM EDT Results phoned to pt per Dr Hancock. Noemy Chicas RN * Telephone Encounter - Noemy Chicas RN - 11/09/2024 1:15 PM EDT Please review PET results and advise. Noemy Chicas RN * Telephone Encounter - Evangelina Linton - 11/09/2024 12:36 PM EDT Images from the original note were not included. documented in this encounterSelect [facility]09-[facility]-2025 Telephone encounter Note * Telephone Encounter - Noemy Chicas RN - 11/09/2024 1:15 PM EDT Please review PET results and advise. Noemy Chicas RN [facility]09-05-2025 Telephone encounter Note* Telephone Encounter - Evangelina Linton - 11/09/2024 12:36 PM EDT Images from the original note were not included. [facility]09-05-2025 Instructions* Patient Instructions* Lo Hancock MD - 11/09/2024 12:29 PM EDT Call PET/CT results (Leigh Chicas) next week please Start prednisone 20 mg daily for 1 week and then decrease to 10 mg Start Acyclovir 400 mg BID Continue percocet 1-2 tablets QHS RTC 2 weeks to recheck symptoms Continue aspirin and Plavix as prescribed by neurology. Follow-up with neurologist as scheduled We discussed your chest pain and burning sensation: - Based on your symptoms and the imaging results, I suspect shingles may be causing your pain, eventhough no rash has appeared yet. Shingles can cause nerve pain before a rash develops or even without a rash. - I prescribed Acyclovir 400 mg to treat shingles. Please take 800 mg (2 tablets) twice daily for the first 2 days, then 400 mg (1 tablet) twice daily for the remainder of the prescription. This has been sent to your pharmacy. - Continue taking your current Medrol dose pack for the next 3 days. After that, we will switch youto Prednisone 20 mg daily for 7 days. If your symptoms improve, we will taper the dose to 10 mg daily. I have provided enough medication to continue if needed. Take the steroids in the morning to avoid sleep disturbances. - If the pain persists after completing the steroids, please let us know. We discussed your pain management: - Continue taking Oxycodone 5 mg as needed for pain. To help you sleep, you may take 10 mg (2 tablets) at night. If you need a refill, please contact our office. - You may use a stool softener as needed to prevent constipation from the pain medication. We discussed your recent imaging and follow-up: - Your recent PET scan shows improvement in the previously noted inflammation, which is likely post-radiation changes. There is no evidence of new or worsening disease. We are awaiting the final radiology report, and I will call you with the results once they are available. - If your pain resolves after a week of steroids, you can stop the medication completely. If the pain persists or worsens, please contact our office. Follow-up: - We will call you with the final PET scan results within the next few days. - If your symptoms do not improve or worsen, please call our office to schedule a follow-up appointment. - You are scheduled to return in 2 weeks for a follow-up visit to reassess your symptoms and treatment plan. Please contact our office if you have any questions or concerns. documented in this encounterSelect Medical [facility]09-05-2025 NoteSt[facility]09-05-2025 History of Present illness Narrative* Lo Hancock MD - 11/09/2024 12:25 PM EDT Images from the original note were not included. NAME: Erin Pena CLINIC NO.: [id number] DATE OF SERVICE: November 09, 2024 (Khadijah) Some elements in this clinic note that are critical to medical decision making have been carefully reviewed and included from a prior clinic note dated: August 16, 2024 (Khadijah) Referring Provider: Gerald Abdi MD Additional Clinicians involved in Erin Pena's care: Dr. 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 Bronchoscopy - mediastinal and hilar LN's negative. LLLbx + Squamous cell carcinoma. Completed neoadjuvant chemo / IO late December 2023. Unfortunately does not appear to be a good candidate for surgery and is exploring SBRT vs. Chemo/RT followed by immunotherapy. Overall he has had apretty good response to date. (February 24, 2024 ). He completed SBRT and was started on maintenance I/O. Since then, he has been suffering with headaches with no obvious cause evident on imaging. He has associated the headaches with the immunotherapyand as he gets further from his most recent infusion in mid July 2024, his headaches have started tolessen. In November 2024 he went to the ER with Ches pain - no PE or cardiac etiology found. Suspect he may have shingles. Will treat empirically. Distribution of pain and burning c/w with suspected dx. SUMMARIZED PLAN OF CARE: Call PET/CT results (Leigh Chicas) next week please Start prednisone 20 mg daily for 1 week and then decrease to 10 mg Start Acyclovir 400 mg BID Continue percocet 1-2 tablets QHS RTC 2 weeks to recheck symptoms Continue aspirin and Plavix as prescribed by neurology. Follow-up with neurologist as scheduled AI Assisted A/P: 1. Radiation-induced pulmonary fibrosis (HCC) (J70.1) 2. Malignant neoplasm of unspecified part of unspecified bronchus or lung (HCC) (C34.90) 3. Pleural effusion, not elsewhere classified (J90) 4. Encounter for follow-up examination after completed treatment for malignant neoplasm (Z08) Recent CT angiogram showed no evidence of pulmonary embolism, but did reveal a left suprahilar airspace opacity and a small left-sided pleural effusion. PET scan from August 03 showed inflammatory changes, likely post-radiation, with no evidence of active malignancy. - Continue monitoring for changes in symptoms or imaging findings. - Await radiologist interpretation of the most recent PET scan; will call patient with results. - Follow-up as needed based on PET scan results and symptom progression. 5. Neuralgia (M79.2) 6. Herpes zoster without complications (B02.9) Acute, severe, burning, neuropathic pain along the left lateral thorax, highly suspicious for herpes zoster neuralgia; pain is not well controlled with opioids. - Start prednisone 20 mg daily for 7 days, then taper to 10 mg daily as needed; provided 10 mg tablets. - Start acyclovir 800 mg PO BID for 2 days, then 400 mg PO BID for 19 days (21- day supply). - Advised to take prednisone in the morning. - Educated on the nature of shingles, including the possibility of pain preceding rash, and that the condition is not contagious unless vesicles are present. - Advised to call if pain does not improve or worsens. - Follow-up in 2 weeks if symptoms persist. 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 - Discontinue Medrol and start prednisone as outlined above. - Discussed risks and benefits of steroid therapy, including potential side effects and the importance of tapering. HPI: CASE HISTORY: Reverse Chronological Order 11/09/2024 - PET/CT: Since 08/03/2024, PRIMARY DISEASE SITE: * No new/worsening focal pulmonary parenchymal abnormality. * Evolving left lower lobe posttreatment changes; attention on follow-up. ROWENA DISEASE: * No metabolically active regional lymphadenopathy. METASTATIC DISEASE: * No metabolically active distant metastases. ADDITIONAL FINDINGS: * Small mildly avid left pleural effusion slightly more conspicuous and largercompared to the prior study; attention on follow-up. 10/27/2024 CT angiogram PE protocol for left-sided pleuritic chest pain No evidence of pulmonary embolism. There is a left suprahilar airspace opacity possibly related to the history of lung cancer. There is atelectasis in the left lung base. There is a small left sided pleural effusion. There is a small pericardial effusion. 08/08/2024 - MRI Brain wo/w @ [facility]: 1. No MRI evidence of acute intracranial hemorrhage, mass, infarct. 2. 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 There is filling of the right MCA distribution. The CTA is more sensitive in this regard. 3. Global cerebral volume loss and white matter changes typically age-related volume loss and chronic microvascular changes. 4. Focal encephalomalacia of the inferior left occipital lobe. No hemosiderin to suggest previous hemorrhage. This is most likely postprocedural given adjacent craniectomy, or chronic ischemic. 08/03/2024 - PET/CT: Since FDG PET/CT 03/26/2024, PRIMARY DISEASE SITE: * Residual left lower lobe nodular opacity with mild uptake is not substantially changed. * New metabolically active posterior left mid lung subpleural reticular opacity and new metabolically active left upper lobe peribronchovascular opacity are favored to be benign/inflammatory, for example representing postradiation change. Attention on follow-up is recommended to ensure resolution. ROWENA DISEASE: * No metabolically active hilar or mediastinal lymphadenopathy. METASTATIC DISEASE: * No metabolically active distant metastases. 07/31/2024 - CTA Neck: *ADDENDUM*Please note that the right common and internal carotid artery occlusion are chronic and unchanged when compared with September 27, 2023. 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 Right common carotid artery is occluded close to its origin. The right internal carotid artery is occluded within its intracranial portion. Please see the report from the CTA Head for complete details. Heavy calcific plaque deposition origin left internal carotid artery without flow-limiting stenosis. Stenosis estimated at 20% No hemodynamically significant stenosis of the left internal carotid artery relative to the distal internal carotid artery diameter. 05/18/2024 - 07/20/2024 - maintenance single agent nivolumab x 3 cycles - Stopped due to intractable headaches. 05/02/2024-05/11/2024 - Radiation to chest per Dr. Hoang 04/03/2024 - PET/CT: CHEST: Decreased FDG avid left lower lobe malignant mass, residual small opacity with mild uptake HEAD/NECK, ABDOMEN/PELVIS, MUSCULOSKELETAL: No FDG avid disease. 01/25/2024 - CT CAP: Chest: Decreased size of the left lower lobe mass. No new suspicious appearing pulmonary nodules orthoracic lymphadenopathy. A/P: No metastatic disease in the abdomen or pelvis. 11/16/2023-12/28/2023 - 3 cycles of Carbo/Taxol + Nivo q 3 weeks (C2 & 3: Decrease Taxol to 175and Carbo AUC to 5) 11/01/2023 - Bronchoscopy: with Dr. Craig Cytology: 5 lymph nodes: Negative for malignant cells. Benign lymphoid sample 10/21/2023 - PET/CT: Abnormal uptake confined to the left upper lobe mass without evidence for metastatic disease. 10/05/2023 - Lung, left lower lobe, core biopsy: at [facility] - Invasive squamous cell carcinoma Comment: In order to classify the neoplasm, immunohistochemical staining is performed on 1B and demonstrates that the tumor cells are diffusely positive for AE1/AE3 and p40, and negative for TTF-1 and Napsin A with adequate controls, supporting the above diagnosis 09/28/2023 - CT Chest: 5.2 cm left upper lobe mass with satellite nodule, concerning for malignancy. Focal necrotizing pneumonia felt less likely but could appear similarly in the appropriate clinical setting. 09/28/2023 - MRI Brain: No acute intracranial findings. 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 09/27/2023 - CTA Neck: Partially visualized lobulated left lower lobe pulmonary mass measuring up to 4.8 cm highly concerning for malignancy. Complete CT chest examination recommended for further evaluation. 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 Mild (less than 50%) luminal narrowing of the proximal left internal carotid artery. 09/27/2023-09/29/2023 - Admitted at [facility] with left sided weakness, slurred speech - stroke workup negative 09/25/2023 - ER for bilateral leg weakness HPI: Updated Visit, November 09, 2024: With Mandy Patient with a history of lung cancer presents with severe burning chest pain. In July, the patient experienced a burning sensation in the chest. A PET scan at that time showed new metabolic activity in the posterior left mid-lung and subthrottle ventricular activity, which was thought to be inflammatory changes, possibly post-radiation. Two weeks ago, the patient developed severe burning pain around the chest wall, described as floating around the outside and worsening with pressure. An X-ray led to a CT angiogram, which showed noevidence of pulmonary embolism, left suprahilar airspace opacity, and a small left-sided pleural effusion. The patient was admitted to the hospital, where a CT scan revealed fluid around the lung andpossibly the heart. An ultrasound showed minimal pericardial effusion. The patient was treated withsteroids and painkillers during a multi-day hospital stay. The patient reports that the pain improved with steroids but returned once the initial course was completed. He is currently on a Medrol dose pack with three days remaining and expresses concern about pain recurrence after finishing the medication. He is also taking oxycodone 5 mg, which provides some relief but primarily induces sleep. He has taken eight out of thirty prescribed tablets. The patient denies acid reflux but notes occasional nighttime symptoms. He has a history of shingles and has received the shingles vaccine. He reports good appetite and is actively engaged in physical activities, such as mowing his two- acre property. (Today) PET Scan: Official radiology report pending; preliminary visualization suggests improvementin previously inflamed left lung region. (08/03) PET Scan: Mild hypermetabolic activity in the left lung region, described as possible post-radiation inflammation or residual malignancy. Chest X-ray: Prompted further evaluation after suggesting fluid around the lung. CT Angiogram: No evidence of pulmonary embolism; left suprahilar airspace opacity and small left-sided pleural effusion noted. Ultrasound: Minimal fluid around the heart, considered not clinically significant. Updated Visit, August 16, 2024: Sergio and his Mandy present by secure Zoom video conference. Pre and post treatment images. On 10/20/2022, patient was diagnosed with lung cancer. Initial PET scan showed significant metabolic activity in the lung mass. He underwent SBRT followed by chemotherapy combined with immunotherapy.On 05/18/2022, he started maintenance therapy with single-agent nivolumab and has completed three cycles. Two weeks ago, a follow-up PET scan revealed no rowena or metastatic disease. There was a residual left lower lobe nodular opacity with mild uptake, which had not substantially changed. New metabolically active posterior left mid-lung subpleural reticular opacity and left upper lobe peribronchovascular opacity were noted, favored to be benign and inflammatory, possibly representing post- radiation changes. Patient reports experiencing daily headaches that began after starting nivolumab. The headaches were most severe during the first two weeks and began to improve by the third week. He has not been taking Ritalin consistently. The headaches have resolved as of this week. Recent labs from 08/03/2022 showed mild anemia, normal thyroid function, and normal chemistries. (No date) PET Scan: - Rownea disease negative - Metastatic disease negative - Residual left lower lobe nodular opacity with mild uptake, unchanged - New metabolically active posterior left mid lung subpleural reticular opacity, new metabolically active left upper lobe peribronchovascular opacity, both favored to be benign and inflammatory, possibly post-radiation changes (10/20) PET Scan: - Hypermetabolic left lower lobe mass with significant tracer uptake (08/03) Blood Tests: - Mild anemia noted - Thyroid parameters within normal limits - Chemistry panel within normal limits MRI (date not provided): - Prior stroke-like events - 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 He remains on single agent nivolumab every 4 weeksand is tolerating well. He and his recently were on a trip to his country and he passed out. He reports that he lost consciousness for a few seconds. At that time he did not seek medical attention. He is unsure what was the cause of passing out. He denies any obvious injuries. He currently denies headaches and vision changes. He is scheduled to see his neurologist in August. He is drinking plenty of fluids. He remains on aspirin and Plavix. He denies any bleeding or abnormal bruising. His breathing is unchanged. He denies fevers, chills, night sweats and signs/symptoms of infection. Overall, he is doing well. Patient has noticed a skin lesion to his right upper ear. He has seen dermatology in the past. Updated Visit, June 15, 2024: Erin Pena returns for scheduled follow-up. He received cycle 1 nivolumab on 05/18/2024 and tolerated it well. He does not feel well the day after his treatment. He complains of a dry mouth and has been trying xcte-ogg-civdvga products for the dry mouth. He had had some chest and rib pain afterdoing yard work. He states that he overdid it . He denies any skin rash. He has some skin burning to his shins and also states that he has had vascular issues to his lower legs. He has been applyingextra lotion for the dryness. He denies diarrhea. No abdominal pain. He actually had an episode of constipation which was eventually resolved with [id number] medications. He has had no headaches. He denies blurred vision. He has had floaters and has seen the eye doctor several times. It was determined likely cause to be from age. He denies fevers, chills, night sweats and signs/symptoms of infection. No bleeding or abnormal bruising. Updated Visit, May 18, 2024: Sergio returns with Mandy for a follow up. He completed his course of radiation. Endorses a cough and a burning sensation as a result of treatment. He is in agreement to resume nivolumab only today, reviewed warning signs of pneumonitis. Discussed the plan for 2 years of immunotherapy as he did not have resection. He also mentions redness on his thighs - will continue to monitor. Updated Visit, April 11, 2024: Sergio returns with Mandy for a follow up. Recent PET/CT shows continued response. He is scheduled to start a short course of radiation with Dr. Hoang. Will plan to start singe agent nivolumab following radiation. Updated Visit, February 24, 2024: Sergio returns with Mandy for a follow up. He has met with Dr. Oreilly to consider surgery - patient reports he may not be a candidate for surgery at this time. He is undergoing pulmonary testing and received a referral to radiation. If surgery he not safe for him, radiation would be a sufficient treatment option. Following his NM lung perfusion scan on 02/17/2024, he developed fatigue and generalized body aches. He has sharp pains in his heels when waking up in the morning, more recently the painspread to his toes. 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 CBC is normal, potassium remains low - I recommended he start a supplement. Updated Visit, December 28, 2023: Sergio and his , Mandy, return for his third and final planned cycle of Carbo/Taxol + Nivo. He complains of worsening dyspnea on exertion and productive coughing. He has gained weight recently - admits he is eating more now that he has stopped smoking. Lungs sound clear in all four quadrants. Worsening anemia and weight gain may be the cause of dyspnea. It is unlikely he has pneumonitis given his symptoms but advised him to contact the office dyspnea continues. He also endorses irritability which he feels is due to gabapentin - will discontinue. He has been prescribed Ritalin in the past to manage mood disorders - will send a new prescription. 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 He has not been diagnosed with diabetes although will be seeing his PCP soon to consider treatment for pre-diabetes. They are going to a football game in [place] around [facility], will complete CT CAP and surgery when he returns from his trip. Updated Visit, December 07, 2023: Sergio returns with Mandy for treatment. He endorses feeling like he was hit by a truck starting on the third day following treatment. He experiences nausea, vomiting, and acid reflux at night. I recommended he sleep with his head elevated and start his antiemetics today. He is treating neuropathywith gabapentin, is improving now. I will reduce his chemotherapy dose to manage toxicity. He has lost his hair due to treatment. Updated Visit, November 16, 2023: Sergio returns with Mandy to begin Carbo/Taxol + Nivo. He underwent a bronchoscopy on 10/31 - negative for rowena involvement. Plan for 3 cycles of treatment prior to resection. He is slightly anemic today, will check iron studies on Day 10 with david counts. Initial Visit, October 21, 2023: Erin Hill Saturnino Pena presents today for a Hematology and Oncology evaluation and second opinion.He is joined by his , Mandy. 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 He completed a PET/CT this morning which shows confined uptake in the left lung without metastatic disease. I recommended chemo+immuno treatment followed by surgery once staging studies are completed. He will also need PFTs to give predictive capacity following a potential resection. He is in agreement to start after staging is complete. Will refer him to Drs. Craig and Afia forsurgical evaluation. 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 Erin's [id number] is Arie Baker, who is my patient also. REVIEW OF SYSTEMS Per HPI and otherwise negative by full review of organ systems. Constitutional: (+) increased appetite Gastrointestinal: (+) acid reflux Musculoskeletal: (+) left chest wall pain, (+) left chest wall tenderness Neurological: (+) drowsiness ECOG PERFORMANCE STATUS: 1 PHYSICAL EXAMINATION: Vitals: BP 133/74 Pulse 63 Temp 97 Resp 16 Wt 177 lb 6.4 oz (80.5kg) SpO2 97% Body surface area is 1.93 meters squared. Exam limited to gross visualization where appropriate. Gen.: This is an age-appropriate patient in no acute distress. Head: Appears atraumatic with no visible lesions. Eyes: Pupils equally round and reactive to light, extraocular muscles are intact. Neck: Supple. Respiratory: Appears to be respiring comfortably. Neurologic: Nonfocal to gross visualization. Alert and oriented 3. Psychiatric: No evidence of inappropriate anxiety or depression. Skin: Visible areas of skin without rash, lesions, wounds or petechiae. ALLERGIES: ALLERGIES Allergen Reactions Sulfa (Sulfonamide * Unknown Unkown, was a child Gabapentin Intolerance Causes Altered mental Status MEDICATIONS: oxyCODONE IR (ROXICODONE) 5 mg immediate release tablet Take 5 mg by mouth every 6 hours as needed for pain. Acetaminophen 500 mg cap Take 1,000 mg by mouth every 6 hours as needed for pain. Docusate Sodium 100 mg tab Take 100 mg by mouth two times a day. methylPREDNISolone (MEDROL, ZACH,) 4 mg Dose-Pack Take as instructed per package. fexofenadine HCl (ITZEL ORAL) Take 180 mg by mouth. amLODIPine (NORVASC) 10 mg tablet Take 10 mg by mouth once daily. methylphenidate (RITALIN) 10 mg tablet Take 1 tablet by mouth two times a day for 30 days. traZODone (DESYREL) 100 mg tablet Take 1 tablet by mouth daily at bedtime. MELOXICAM ORAL Take by mouth. clopidogrel (PLAVIX) 75 mg tablet Take 75 mg by mouth once daily. Nicotine Polacrilex (NICORETTE) [address] 4 mg between cheek and gum as needed. albuterol HFA (PROVENTIL HFA, VENTOLIN HFA) 90 mcg/actuation inhaler Inhale 2 Puffs as instructed every 6 hours as needed. propranolol (INDERAL) 20 mg tablet TAKE 1 TABLET BY MOUTH NEEDED FOR ANXIETY ATTACKS ONCE A DAY terazosin (HYTRIN) 1 mg capsule Take 1 mg by mouth daily at bedtime. metFORMIN (GLUCOPHAGE) 850 mg tablet Take 850 mg by mouth daily with breakfast. krill oil 500 mg cap Take 1 capsule by mouth once daily. Glucosamine HCl 500 mg tab Take 1 tablet by mouth once daily. atorvastatin (LIPITOR) 40 mg tablet Take 40 mg by mouth once daily. aspirin, enteric coated (ASPIRIN, ENTERIC COATED) 81 mg EC tablet Take 81 mg by mouth once daily. levothyroxine (SYNTHROID) 175 mcg tablet Take 175 mcg by mouth daily before breakfast. ascorbic acid (VITAMIN C) 500 mg tablet Take 500 mg by mouth once daily. multivitamin tablet Take 1 tablet by mouth once daily. predniSONE (DELTASONE) 10 mg tablet Take 2 tablets by mouth once daily. acyclovir (ZOVIRAX) 400 mg tablet Take 1 tablet by mouth two times a day. LABORATORY VALUES: WBC (k/uL) Date Value 11/09/2024 24.43 (H) RBC (m/uL) Date Value 11/09/2024 4.22 Hemoglobin (g/dL) Date Value 11/09/2024 12.4 (L) Hematocrit (%) Date Value 11/09/2024 36.8 (L) MCV (fL) Date Value 11/09/2024 87.2 MCH (pg) Date Value 11/09/2024 29.4 MCHC (g/dL) Date Value 11/09/2024 33.7 RDW-CV (%) Date Value 11/09/2024 14.9 Platelet Count (k/uL) Date Value 11/09/2024 296 MPV (fL) Date Value 11/09/2024 9.7 Glucose (mg/dL) Date Value 09/19/2024 145 (H) BUN (mg/dL) Date Value 09/19/2024 13 Creatinine (mg/dL) Date Value 09/19/2024 0.78 Sodium (mmol/L) Date Value 09/19/2024 141 Potassium (mmol/L) Date Value 09/19/2024 3.9 Chloride (mmol/L) Date Value 09/19/2024 101 CO2 (mmol/L) Date Value 09/19/2024 29 Protein, Total (g/dL) Date Value 09/19/2024 7.0 Albumin (g/dL) Date Value 09/19/2024 4.5 Calcium, Total (mg/dL) Date Value 09/19/2024 10.0 Alkaline Phosphatase (U/L) Date Value 09/19/2024 78 Bilirubin, Total (mg/dL) Date Value 09/19/2024 0.4 AST (U/L) Date Value 09/19/2024 20 ALT (U/L) Date Value 09/19/2024 22 DIAGNOSIS: (J70.1) Radiation-induced pulmonary fibrosis (HCC) (primary encounter diagnosis) Plan: predniSONE (DELTASONE) 10 mg tablet, acyclovir (ZOVIRAX) 400 mg tablet (C34.90) Malignant neoplasm of unspecified part of unspecified bronchus or lung (HCC) Plan: predniSONE (DELTASONE) 10 mg tablet, acyclovir (ZOVIRAX) 400 mg tablet (M79.2) Neuralgia Plan: predniSONE (DELTASONE) 10 mg tablet, acyclovir (ZOVIRAX) 400 mg tablet (J90) Pleural effusion, not elsewhere classified (B02.9) Herpes zoster without complications (Z08) Encounter for follow-up examination after completed treatment for malignant neoplasm (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 PAST MEDICAL HISTORY Diagnosis Date Chronic obstructive pulmonary disease (HCC) 10/20/2023 Hypertension Hypothyroidism Lung cancer (HCC) 2023 refBy [place] Other affections of shoulder region, not elsewhere classified 03/14/2012 PAST SURGICAL HISTORY Procedure Laterality Date APPENDECTOMY BRAIN SURGERY HX COLONSCOPY SCREENING HIGH RISK FINGER AMPUTATION (SPECIFY DIGIT) HX HAND SURGERY HX HEMORROIDECTOMY INTERNAL LUNG BIOPSY Left NECK SURGERY HX PAST SURGICAL HISTORY OF Heart cath REMV CATARACT EXTRACAP,INSERT LENS S KIT CRAINIOTOMY [id number] SHOULDER ARTHROSCOPY/SURG TYMPANOSTOMY GENERAL ANESTHESIA XR CERVICAL FUSION OR C4 fusion Social History Tobacco Use Smoking status: Former Current packs/day: 0.00 Average packs/day: 0.5 packs/day for 50.0 years (25.0 ttl pk-yrs) Types: Cigarettes Start date: 09/22/1973 Quit date: 09/23/2023 Years since quittin.1 Passive exposure: Current Smokeless tobacco: Never Tobacco comments: Quit September 26 Vaping Use Vaping status: Former Substance Use Topics Alcohol use: No Drug use: No FAMILY HISTORY Problem Relation Age of Onset Stroke Mother Cancer Mother Heart disease Father Hypertension Father Stroke Paternal Grandmother Anesthesia Problems No Family History I spent a total of 40 minutes on the date of service which included preparing to see the patient, [id number] patient care, completing clinical documentation, obtaining and/or reviewing separately obtained history, counseling and educating the patient/family/caregiver, ordering medications, tests,or procedures, independently interpreting results (not separately reported), communicating results to the patient/family/caregiver, and care coordination (not separately reported). Lo Hancock MD, CPE Hematology and Oncology Services Provided at: [place], [place] CC: [facility] [address] [address] Basia Vega MD [address] [facility] [id number] Savanah Oreilly MD documented in this encounterSelect Medical [place] [facility] History of Present illness Narrative* Mildred Morillo RN - 11/09/2024 10:00 AM EDT Radiology Service Progress Note DATE OF SERVICE: November 09, 2024 TIME: 10:09 AM PATIENT IDENTITY VERIFICATION COMPLETED USING TWO (2) STANDARD IDENTIFIERS: Name and Date of confirmed by patient verbally. FALL SCREENING: Has the patient had 2 falls in the last year or 1 fall with injury or currently using an Ambulatory Assistive Device (Walker, Cane, Wheelchair, Crutches, etc.)? No PATIENT GENDER DATA: Assigned male at EXAM: CT -CONTRAST INDUCED NEPHROPATHY RISK FACTORS: Not applicable CREATININE: Creatinine Date Value Ref Range Status 09/19/2024 0.78 0.73 - 1.22 mg/dL Final 08/03/2024 0.67 (L) 0.73 - 1.22 mg/dL Final 07/20/2024 0.64 (L) 0.73 - 1.22 mg/dL Final Estimated Glomerular Filtration Rate Date Value Ref Range Status 09/19/2024 97 >=60 mL/min/1.73m Final Comment: Estimated Glomerular Filtration Rate (eGFR) is calculated using the 2020 CKD-EPI creatinine equation. This equation utilizes serum creatinine, sex, and age as parameters. The creatinine assay has traceable calibration to isotope dilution- mass spectrometry. Refer to KDIGO guidelines for clinical interpretation. In patients with unstable renal function, e.g. those with acute kidney injury, the eGFRmay not accurately reflect actual GFR. P.O.C.T. RESULTS: N/A November 09, 2024 TREATMENT: N/A IV SITE: Ambulatory: A peripheral IV was started in the Right antecubital site with a Angio cath: 22 gauge. IV SITE APPEARANCE: Clean,Dry and Intact SIGNATURE: Mildred Morillo RN PATIENT NAME: Erin Pena DATE: November 09, 2024 TIME: 10:09 AM * Noemy Schumacher RT(R) - 11/09/2024 10:00 AM EDT RADIOLOGY SERVICE PROGRESS NOTE SERVICE DATE: 11/09/2024 SERVICE TIME: 10:25 AM PATIENT IDENTITY VERIFICATION COMPLETED USING TWO (2) STANDARD IDENTIFIERS: Name and Date of confirmed by patient verbally POST EXAM PIV STATUS: Discontinued PROCEDURE TYPE: NM INJECT: PET/CT BODY SCAN. 10.8 mCi F18 FDG. Administered By: . No other medications given.. ADMINISTRATION TIME: 1007 PATIENT DISCHARGED TO: Ambulatory patient, left [place] department area. Is this a therapy: No A Diagnostic radioactive procedure has taken place, with no further precautions necessary other than routine body substance precautions. More information regarding radiation safety can be found usingthis link: [email or web address] SIGNATURE: RT Stephanie(R) PATIENT NAME: Erin Pena DATE: November 09, 2024 TIME: 10:25 AM PAGER/CONTACT #: documented in this encounterSelect Medical [place] [facility] Telephone encounter Note* Telephone Encounter - Noemy Chicas RN - 11/06/2024 4:46 PM EDT Pt's spouse notified of change and verbalizes understanding. Noemy Chicas RN [facility] [place] [facility] Work Phone: [phone] Miscellaneous Notes* Telephone Encounter - Noemy Chicas RN - 11/06/2024 4:46 PM EDT Pt's spouse notified of change and verbalizes understanding. Noemy Chicas RN * Telephone Encounter - Evangelina Linton - 11/06/2024 4:43 PM EDT I changed follow up closer to 11:45 am - should be finishing up around this time and BOBBY had the opening. Thanks! Evangelina Linton * Telephone Encounter - Noemy Chicas RN - 11/06/2024 2:07 PM EDT Pt's spouse notified and verbalizes understanding. PSS: Pt scheduled for PET at 10 and f/u w/ Bobby at 1 PM on Tuesday. Is there any way he can see Bobby closer to the time of his PET? Noemy Chicas RN * Telephone Encounter - Noemy Chicas RN - 11/06/2024 2:01 PM EDT Call placed to pt's spouse, Mandy. No answer. Message left requesting call back. Noemy Chicas RN * Telephone Encounter - Lo Hancock MD - 11/06/2024 1:45 PM EDT Repeat medrol dose zach - not sure what the pain is from... * Telephone Encounter - Noemy Chicas RN - 11/06/2024 9:52 AM EDT Pt was admitted to [facility] last week w/ left sided pleuritic pain. CTA was negative for PE. Dischargedhome on Prednisone 40 mg/day x 4 days. Pain had improved while on the steroid. Took his last dose of Prednisone on . Spouse reports by Tuesday the pt's pain was becoming severe again. TakingOxycodone TID along w/ Ibuprofen. She has considered taking him back to the ER, but would like to avoid this if possible. Pt scheduled for PET scan and f/u w/ Bobby on Tuesday. What would you advise in the meantime? Noemy Chicas RN documented in this encounterSelect Medical [place] [facility]-02-2025 Telephone encounter Note * Telephone Encounter - Evangelina Linton - 11/06/2024 4:43 PM EDT I changed follow up closer to 11:45 am - should be finishing up around this time and BOBBY had the opening. Thanks! Evangelina Linton [facility] [place] [facility]09-02-2025 Telephone encounter Note* Telephone Encounter - Noemy Chicas RN - 11/06/2024 2:07 PM EDT Pt's spouse notified and verbalizes understanding. PSS: Pt scheduled for PET at 10 and f/u w/ Bobby at 1 PM on Tuesday. Is there any way he can see Bobby closer to the time of his PET? Noemy Chicas RN [facility] [place] [facility]09-02-2025 Telephone encounter Note* Telephone Encounter - Noemy Chicas RN - 11/06/2024 2:01 PM EDT Call placed to pt's spouse, Mandy. No answer. Message left requesting call back. Noemy Chicas RN [facility] [place] [facility]09-02-2025 Telephone encounter Note* Telephone Encounter - Lo Hancock MD - 11/06/2024 1:45 PM EDT Repeat medrol dose zach - not sure what the pain is from... [facility] [place] [facility]09-02-2025 Telephone encounter Note* Telephone Encounter - Noemy Chicas RN - 11/06/2024 9:52 AM EDT Pt was admitted to [facility] last week w/ left sided pleuritic pain. CTA was negative for PE. Dischargedhome on Prednisone 40 mg/day x 4 days. Pain had improved while on the steroid. Took his last dose of Prednisone on . Spouse reports by Tuesday the pt's pain was becoming severe again. TakingOxycodone TID along w/ Ibuprofen. She has considered taking him back to the ER, but would like to avoid this if possible. Pt scheduled for PET scan and f/u w/ Bobby on Tuesday. What would you advise in the meantime? Noemy Chicas RN [facility] [place] [facility]08-26-2025 Telephone encounter Note* Telephone Encounter - Noemy Chicas RN - 10/30/2024 3:34 PM EDT DISCHARGE CALL BACK Today's date: October 30, 2024 Notified of Pt discharge by: Call placed to hospital for follow up. Patient discharged on 10/29/24 from [facility] 3T to Home Primary Cancer Diagnosis: Lung Cancer Admitting Diagnosis: Intractable left sided chest pain/rib pain, Pericardial Effusion. Discharge Summary/SBAR reviewed: Yes Handoff Discussed with Transitional Data Integrity Analyst: N/A Psychosocial Risk Factors: None If patient discharged to SNF/Rehab Facility, phone call completed to reinforce discharge instructions and follow up: N/A Call Disposition: Called patient and spoke with patient. Patient identified by name and date of . YES Patient with symptom issues: No Pain: Still has the left chest/rib pain, but notes that it has improved. Rates his pain 5/10. Has Ibuprofen, Tylenol, and Oxycodone that he can take if needed. Is patient followed by Palliative Medicine? No Palliative Medicine follow up: N/A Any new barriers to care identified? No Any new referrals needed? No Social Work Follow-Up visit scheduled? NA Does the patient need interventions No or same day appointment: No MEDICATION ADHERENCE Patient discharged with prescriptions? Yes, Prednisone, Tylenol, Docusate, Ibuprofen, Oxycodone Discharge prescriptions filled: Yes Patient understands when to take prescriptions: Yes FOLLOW UP Patient scheduled for follow-up appointment within 5 business days of discharge? No, Other: Will move pt's RV w/ Bobby if able to move PET. Patient reminded of follow-up appointment with [facility] provider, Dr Hancock on 11/09/24: Yes Discussed - Pt notes his pain has improved. Gets slightly short of breath w/ activity. Overall feeling better than he did prior to admission. PATIENT EDUCATION / REINFORCEMENT Patient verbalizes understanding of when to seek Medical Attention? YES Patient verbalizes understanding of after hours and weekend phone number? YES Noemy Chicas RN [facility] Work Phone: [phone] Miscellaneous Notes* Telephone Encounter - Noemy Chicas RN - 10/30/2024 3:34 PM EDT DISCHARGE CALL BACK Today's date: October 30, 2024 Notified of Pt discharge by: Call placed to hospital for follow up. Patient discharged on 10/29/[address] to Home Primary Cancer Diagnosis: Lung Cancer Admitting Diagnosis: Intractable left sided chest pain/rib pain, Pericardial Effusion. Discharge Summary/SBAR reviewed: Yes Handoff Discussed with Transitional Data Integrity Analyst: N/A Psychosocial Risk Factors: None If patient discharged to SNF/Rehab Facility, phone call completed to reinforce discharge instructions and follow up: N/A Call Disposition: Called patient and spoke with patient. Patient identified by name and date of . YES Patient with symptom issues: No Pain: Still has the left chest/rib pain, but notes that it has improved. Rates his pain 5/10. Has Ibuprofen, Tylenol, and Oxycodone that he can take if needed. Is patient followed by Palliative Medicine? No Palliative Medicine follow up: N/A Any new barriers to care identified? No Any new referrals needed? No Social Work Follow-Up visit scheduled? NA Does the patient need interventions No or same day appointment: No MEDICATION ADHERENCE Patient discharged with prescriptions? Yes, Prednisone, Tylenol, Docusate, Ibuprofen, Oxycodone Discharge prescriptions filled: Yes Patient understands when to take prescriptions: Yes FOLLOW UP Patient scheduled for follow-up appointment within 5 business days of discharge? No, Other: Will move pt's RV w/ Bobby if able to move PET. Patient reminded of follow-up appointment with [facility] provider, Dr Hancock on 11/09/24: Yes Discussed - Pt notes his pain has improved. Gets slightly short of breath w/ activity. Overall feeling better than he did prior to admission. PATIENT EDUCATION / REINFORCEMENT Patient verbalizes understanding of when to seek Medical Attention? YES Patient verbalizes understanding of after hours and weekend phone number? YES Noemy Chicas RN documented in this encounterSelect Medical [facility]08-26-2025 Telephone encounter Note * Telephone Encounter - Agata Briceño - 10/30/2024 2:42 PM EDT D/C summary scanned. [facility]-26-2025 Miscellaneous Notes* Telephone Encounter - Agata Briceño - 10/30/2024 2:42 PM EDT D/C summary scanned. * Telephone Encounter - Noemy Chicas RN - 10/30/2024 1:39 PM EDT Update: Spoke Shahzad Luz RN. Reports the pt was discharged home yesterday. Taryn: Please scan pt's summary. Thanks! Noemy Chicas RN * Telephone Encounter - Ambar Lux - 10/29/2024 10:24 AM EDT Unfortunately we do not have anything sooner for PET scans. Will keep a eye out for a cancellation.I called and spoke to Sergio and his Anika and let them know if anything opens up sooner I will give them a call. Ambar b PSS * Telephone Encounter - Noemy Chicas, EWELINA - 10/29/2024 10:04 AM EDT FYI: Records reviewed. CT scan in ER showed left sided pleural effusion and small pericardial effusion. CT recommended ECHO given findings of pericardial effusion. Pulmonology consulted. Feels some of pt's pain could be from pleural involvement of pt's lung mass. Notes that they do not have prior images for comparison. Pt's pleural effusion too small to drain. Spoke leonard Gonzalez 3T RN. Reports the pt's pain seems to be controlled w/ Toradol, Tylenol, and Prednisone burst. ECHO ordered, but has not been completed. Discharge unknown at this time. Spoke w/ pt's spouse regarding the above. Spouse requesting we move his 11/09 PET ahead to an earlierdate. PSS: Please move pt's PET to an earlier date if possible and notify pt's spouse either way. Thanks! Noemy Chicas RN * Telephone Encounter - Agata Briceño - 10/29/2024 9:14 AM EDT Records scanned. * Telephone Encounter - Noemy Chicas RN - 10/29/2024 7:59 AM EDT Voicemail message received from pt's spouse. Reports [facility] [facility] [place] over the weekend d/t ongoing pain in his lung. Call placed to hospital for update. No answer at the desk. Unable to leave a message. Taryn: Please scan records. Thanks! Noemy Chicas RN documented in this encounterSelect [facility] Telephone encounter Note * Telephone Encounter - Noemy Chicas RN - 10/30/2024 1:39 PM EDT Update: Spoke w/ Shahzad Laguerre RN. Reports the pt was discharged home yesterday. Taryn: Please scan pt's summary. Thanks! Noemy Chicas RN [facility] Work Phone: [phone]) 682-596408-25-2025 Telephone encounter Note* Telephone Encounter - Ambar Lux - 10/29/2024 10:24 AM EDT Unfortunately we do not have anything sooner for PET scans. Will keep a eye out for a cancellation.I called and spoke to Sergio and his Anika and let them know if anything opens up sooner I will give them a call. Ambar roche PSS [facility]08-25-2025 Telephone encounter Note* Telephone Encounter - Noemy Chicas RN - 10/29/2024 10:04 AM EDT FYI: Records reviewed. CT scan in ER showed left sided pleural effusion and small pericardial effusion. CT recommended ECHO given findings of pericardial effusion. Pulmonology consulted. Feels some of pt's pain could be from pleural involvement of pt's lung mass. Notes that they do not have prior images for comparison. Pt's pleural effusion too small to drain. Spoke w/ Shahzad Gonzalez RN. Reports the pt's pain seems to be controlled w/ Toradol, Tylenol, and Prednisone burst. ECHO ordered, but has not been completed. Discharge unknown at this time. Spoke w/ pt's spouse regarding the above. Spouse requesting we move his 11/09 PET ahead to an earlierdate. PSS: Please move pt's PET to an earlier date if possible and notify pt's spouse either way. Thanks! Noemy Chicas, EWELINA [facility]08-25-2025 Telephone encounter Note* Telephone Encounter - Agata Briceño - 10/29/2024 9:14 AM EDT Records scanned. [facility]08-25-2025 Telephone encounter Note* Telephone Encounter - Noemy Chicas RN - 10/29/2024 7:59 AM EDT Voicemail message received from pt's spouse. Reports the pt was admitted to [facility] [place] over the weekend d/t ongoing pain in his lung. Call placed to hospital for update. No answer at the desk. Unable to leave a message. Taryn: Please scan records. Thanks! Noemy Chicas RN [facility]08-23-2025 [place] [address] Hospitalist H&P Signed Patient: Erin Pena MR#: [id number] : 1955 Acct:[id number] Age/Sex: 68 / M Adm Date: 5 Loc: Room: [address] [place] [address] Type: ADM IN Attending Dr: Clarence Stevens DO Copies to: MD Clarence Perez, ~ HPI DATE OF EXAMINATION: 10/27/24 CHIEF COMPLAINT: Chest and rib pain HISTORY OF PRESENT ILLNESS: This patient is a 68-year-old male who presented to the emergency department with severe left-sidedchest and rib pain. This been worsening over the prior 3to 4 days. He describes it is continuous but does worsen with inspiration. Hashad a minimal cough that is mostly nonproductive and sometimes with clear sputum. Patient has a presenting blood pressure 183/77 mmHg, 97% pulse oximetry on room air, heart rate of 79 bpm, respirations 20/min, temperature 98.1 ?F. Laboratoryevaluation reveals a unremarkable CBC and chemistries. Cardiac markers within normal limits. CT angiography of the chest was obtained to rule out PE and negative for thrombus but notable for a left-sided pleural effusion and small pericardial effusion. Left-sided suprahilar airspace opacity is reported thought to be related to prior lung cancer. Notably there is a history of lung cancer for which the patient has received radiation treatment with his most recent radiation treatment to the left lung being performed in late July of this year. A chest x-ray done as an outpatient yesterday noted this left-sided effusion and he was directed to come to the ER for this reason. Despite aggressive IV pain control provided in the ER he is still quite uncomfortable in regards to this complaint and was brought in under the hospitalist service for further evaluation and treatment. Most recent plan per oncology was to follow-up with PET scan in November to guide any further lung cancer treatment of his squamous cell carcinoma Physical Examination: GENERAL APPEARANCE: Alert, up in bed AAOx3, mildly uncomfortable. CARDIAC: Normal S1 and S2. No S3, S4 or murmurs. LUNGS: Clear to auscultation bilaterally diminished breath sounds left side ABDOMEN: Positive bowel sounds. Soft, nontender. No guarding or signs of an acute abdomen MUSCULOSKELETAL: No joint erythema or tenderness. EXTREMITIES: No clubbing, cyanosis or edema NEUROLOGICAL: No focal deficits SKIN: Skin normal color, texture and turgor with no lesions or eruptions. PSYCHIATRIC: Appropriate mood and affect Assessment and plan: 1. Left-sided chest pain/rib pain, suspected radiation pneumonitis 2. Pericardial effusion, low suspicion for pericarditis 3. Lung cancer status post radiation 4. Hypertension 5. Hypothyroidism 6. Type 2 diabetes mellitus 7. Hyperlipidemia Patient's pleural effusion is notable but not seem large enough for thoracentesis. Given his left-sided lung cancer and treatment to the area with radiation I do suspect radiation pneumonitis. This pericardial effusion theoretically could be causing some pericarditis but theoretically account for his symptoms as well. IV narcotic pain control with Dilaudid is available this evening. I have also started Toradol for better anti-inflammatory effect. Patient has orthopedic complaints and preferably would not start the patient on glucocorticoids if warranted. Furthermore radiation pneumonitis will be treatedwith a slightly more prolonged prednisone taper. Will consult pulmonology for recommendations regarding his pulmonary complaints. Echocardiogram to be ordered to evaluate his effusion if he remains an inpatient after this weekend. His home antihypertensive therapies will be continued as prescribed with amlodipine 10 mg daily. Onlevothyroxine 175 mcg daily will be continued unchanged for hypothyroidism. Atorvastatin 40 mg daily for hyperlipidemia. Metformin daily 850 mg will be continued for diabetes mellitus [facility] Medical History Lung cancer History of gastric ulcer 1975 Problem List clean-up per request of Phys. EHR Cmte Chronic low back pain Problem List clean-up per request of Phys. EHR Cmte Hyperlipidemia Problem List clean-up per request of Phys. EHR Cmte Hypertension Problem List clean-up per request of Phys. EHR Cmte Hypothyroidism Problem List clean-up per request of Phys. 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 Problem List clean-up per request of Phys. EHR Cmte BCC (basal cell carcinoma), face Excision of same Problem List clean-up per request of Phys. EHR Cmte Surgical History History of appendectomy Problem List clean-up per request of Phys. EHR Cmte History of craniotomy 2015- Middle fossa craniotomy ; encephalocele, CSF leak; titanium plate head. Problem List clean-up per request of Phys. EHR Cmte History of phacoemulsification of cataract of both eyes with intraocular lens implantation Problem List clean-up per request of Phys. EHR Cmte History of cervical spinal surgery Posterior cervical fusion x 2 Problem List clean-up per request of Phys. EHR Cmte History of carpal tunnel release of both wrists Problem List clean-up per request of Phys. EHR Cmte Family History Father Heart disease Mother Heart disease Family/Other Coronary artery disease Social History Smoking Status: Never smoker Tobacco Type: cigarettes Substance Use Type: None Meds Medications and Allergies Allergies Sulfa (Sulfonamide Antibiotics) Allergy (Unknown, Verified 10/27/24 14:00) unknown; childhood allergy Home Medications ascorbic acid (vitamin C) 500 mg tablet (Vitamin C) 500 mg PO DAILY supplement 11/02/19 [History Confirmed 10/27/24] atorvastatin 40 mg tablet 40 mg PO DAILY hyperlipidemia 11/02/19 [History Confirmed 10/27/24] levothyroxine 175 mcg tablet (Synthroid) 175 mcg PO DAILY hypothyroidism 11/02/19 [History Confirmed 10/27/24] kdgnpimn-lr-yaday 300 mcg-K 60 mcg-lycop 600 mcg-lutein 300 mcg tablet (Men 50 Plus Multivitamin) 1tab PO DAILY supplement 11/02/19 [History Confirmed 10/27/24] cyclobenzaprine 10 mg tablet 10 mg PO TID PRN back spasms #50 tabs 03/21/20 [Rx Confirmed 10/27/24] amlodipine 10 mg tablet 10 mg PO DAILY 10/27/24 [History Confirmed 10/27/24] clopidogrel 75 mg tablet 75 mg PO DAILY 10/27/24 [History Confirmed 10/27/24] meloxicam 7.5 mg tablet 7.5 mg PO QHS 10/27/24 [History Confirmed 10/27/24] metformin 850 mg tablet 850 mg PO DAILY 10/27/24 [History Confirmed 10/27/24] terazosin 1 mg capsule 1 mg PO QHS 10/27/24 [History Confirmed 10/27/24] Exam Physical Exam Vital Signs: Temp Pulse Resp BP Pulse Ox O2 Del Method 98.1 F 65 18 130/61 90 L Room Air 10/27/24 14:10 10/27/24 18:20 10/27/24 18:20 10/27/24 18:20 10/27/24 18:20 10/27/24 18:20 Results - Hospitalist H&P Lab Results Labs: Laboratory Last Values Corrected WBC 9.8 X10E3/uL (4.1-10.5) 10/27/24 14:17 Uncorrected WBC Count 9.8 x10E3/uL (4.1-10.5) 10/27/24 14:17 RBC 4.67 x10E6/uL (3.90-5.60) 10/27/24 14:17 Hgb 13.8 g/dL (13.0-17.0) 10/27/24 14:17 Hct 39.9 % (38.8-50.0) 10/27/24 14:17 MCV 85.5 fl (83.5-101) 10/27/24 14:17 MCH 29.5 pg (27.5-35.2) 10/27/24 14:17 MCHC 34.6 g/dL (32.5-35.6) 10/27/24 14:17 RDW 14.9 % (12.0-14.8) H 10/27/24 14:17 Plt Count 343 x10E3/uL (150-450) 10/27/24 14:17 MPV 7.9 fl (6.6-10.1) 10/27/24 14:17 Neut % (Auto) 62.7 % (.) 10/27/24 14:17 Lymph % (Auto) 18.3 % (.) 10/27/24 14:17 [place] % (Auto) 6.8 % (.) 10/27/24 14:17 Eos % (Auto) 11.7 % (.) 10/27/24 14:17 Baso % (Auto) 0.5 % (.) 10/27/24 14:17 Nucleat RBC Rel Count 0.2 /100 WBC (0-0.5) 10/27/24 14:17 Neut # (Auto) 6.1 x10E3/uL (1.8-7.7) 10/27/24 14:17 Lymph # (Auto) 1.8 x10E3/uL (1.00-4.8) 10/27/24 14:17 [place] # (Auto) 0.7 x10E3/uL (0.0-0.8) 10/27/24 14:17 Eos # (Auto) 1.1 x10E3/uL (0.0-0.45) H 10/27/24 14:17 Baso # (Auto) 0.1 x10E3/uL (0.0-0.2) 10/27/24 14:17 Monocyte Dist Width 17.23 % (0.00-20.00) 10/27/24 14:17 PHA Creatinine Clear 88.70 10/27/24 14:17 Sodium 140 mmol/L (136-145) 10/27/24 14:17 Potassium 3.7 mmol/L (3.5-5.1) 10/27/24 14:17 Chloride 102 mmol/L (98-107) 10/27/24 14:17 Carbon Dioxide 30.8 mmol/L (21.0-31.0) 10/27/24 14:17 Anion Gap 10.9 mEq/L (6.0-15.0) 10/27/24 14:17 BUN 13 mg/dL (7-25) 10/27/24 14:17 Creatinine 0.77 mg/dL (0.70-1.30) 10/27/24 14:17 Est GFR (CKD-EPI) > 60.0 mL/Min 10/27/24 14:17 Glucose 191 mg/dL (70-100) H 10/27/24 14:17 Calcium 9.4 mg/dL (8.6-10.3) 10/27/24 14:17 Troponin I High Sens 3 ng/L (0-20) 10/27/24 16:00 B-Natriuretic Peptide 18.0 pg/mL (5-100) 10/27/24 14:17 COVID-19 Clin Com Not detected (Not Detecte) 10/27/24 14:20 Microbiology Results Micro: Microbiology - Results from entire visit 10/27/24 14:20 Nasopharyngeal Respiratory Panel (PCR) - Final Assessment & Plan Assessment/Plan (1) Atypical chest pain: Plan . IP vs OBS Justification Based on differential dx, clinical care plan, and risk of adverse events, if untreated, in my clinical judgement this patient requires an acute care setting as: INPATIENT because of an expectation ofan over 2 midnight stay. Estimated length of stay (# of days): 3 Documented By: Clarence Stevens DO 10/27/24 20 37 Signed By: 10/27/242050 [facility]08-23-2025 Evaluation note* Diagnosis Onset Date Resolution Status Admit Date Atypical chest pain acuteAugust 2024 6:48pmPleural effusionacuteAugust 2024 6:48pm [facility] Work Phone: 1(709) 701-245208-23-2025 Evaluation note* Diagnosis Onset Date Resolution Status Admit Date Atypical chest pain acuteAugust 2024 6:48pmPleural effusionacuteAugust 2024 6:48pm Squamous cell lung canceracuteAugust 2024 6:48pm [facility] Work Phone: 1(254) 981-723208-23-2025 Evaluation note* Diagnosis Onset Date Resolution Status Admit Date Pleural effusion inactiveAugust 2024 6:48pmSquamous cell lung cancerinactiveAugust 2024 6:48pmAtypical chest paindeletedAugust 2024 6:48pmPost herpetic neuralgiaacuteSeptember 2024 1:30pm [facility] Work Phone: 1(965) 894-272208-23-2025 Radiology Diagnostic study [facility]BAR[facility] [place] [address] CT Scan Report Signed Patient: Erin Pena MR#: [id number] : 1955 Acct:[id number] Age/Sex: 68 / M ADM Date: 5 Loc: ER Room: Type: [facility] ER Attending Dr: Copies to: Wendy Ochoa MD~ Ordering Provider: Wendy Ochoa MD Date of Service: 10/27/24 CT/CT angio chest PE protocol: L sided pleuritic cp, hx lung ca on L, worse pain CT angio chest PE protocol 10/27/2024 4:03 PM SIGN AND SYMPTOMS: Left-sided chest pain, history of lung cancer CONTRAST: 90 mL of intravenous Isovue-370 TECHNIQUE: Multidetector CT axial slices of the chest were obtained with IV contrast. Multiplanar reformats were performed and viewed on a separate workstation and reviewed to further define anatomy and possible pathology. CT was performed with one or more of the following dose reduction techniques: Automated exposure control, adjustment of the mA and/or kV according to patient size, or use of iterative reconstruction technique. COMPARISON: None. FINDINGS: Lower neck: Thyroid gland within normal limits, no supraclavicle adenopathy. Vessels: Atherosclerotic changes are present in the thoracic aorta, origins of the great vessels, and coronary arteries. There is no evidence of pulmonary embolism. There is poor contrast opacification in the left common carotid artery just distal to the origin suspicious for a distal occlusion there is a slow limiting stenosis. Mediastinum and Jennifer: Within normal limits. Heart: Normal size. There is a small pericardial effusion.. Airways: Within normal limits Lungs: There is left suprahilar airspace opacity possibly relating to the history of lung cancer. There is an atelectasis in the left lung base. Pleura: There is a small left-sided pleural effusion. Chest Wall: Within normal limits. Upper Abdomen: Within normal limits. Bones: Degenerative changes are noted in the thoracic spine and shoulders. CT/CT angio chest PE protocol IMPRESSION: No evidence of pulmonary embolism. There is left suprahilar airspace opacity possibly relating to the history of lung cancer. There is an atelectasis in the left lung base. There is a small left-sided pleural effusion. There is a small pericardial effusion. Impression dictated by: Mihai Chaudhary M.D. 10/27/2024 4:59 PM Dictation Location: [place] [address] Transcribed By: [facility] 10/27/241658 Dictated By: Mihai Chaudhary II, MD 10/27/24 429 Signed By: 10/27/241658 [facility] Work Phone: [phone] NoteIMPRESSION: Newly appearing/progression of left mid and lower lung zone opacities, small left pleural effusion, likely progressed from prior PET/CT examination. These findings may be posttreatment related. Correlation with follow-up chest x-rays or, for immediate further evaluation, CT scan of the chest would be recommended. Transcribe Date/Time: Oct 26 2024 11:18A Dictated by: ESPINOZA DIAZ MD This examination was interpreted and the report reviewed and electronically signed by: ESPINOZA DIAZ MD on Oct 26 2024 11:22AM EST Thank you for allowing us to participate in the care of your patient. Should there be any questions regarding this interpretation, please call [phone]. If you are unable to reach us at the number above, please feel free to contact [facility] eRadiology at [phone].DIVISION OF [id number] History of Present illness Narrative* Noemy Schumacher RT(R) - 10/26/2024 8:00 AM EDT Radiology Service Progress Note PATIENT NAME: Erin Pena DATE OF SERVICE: October 26, 2024 TIME: 8:54 AM PATIENT IDENTITY VERIFICATION COMPLETED USING TWO (2) IDENTIFIERS: Name and Date of confirmedby patient verbally. FALL SCREENING: Has the patient had 2 falls in the last year or 1 fall with injury or currently using an Ambulatory Assistive Device (Walker, Cane, Wheelchair, Crutches, etc.)? No PATIENT GENDER DATA: Assigned male at PATIENT RELEVANT IMPLANT DATA REVIEWED: Not Applicable PATIENT PRESENTS WITH AN IMPLANTABLE OR ATTACHED UNEMPLOYMENT BENEFITS CLAIMS TAKER: No RADIOLOGY DEPARTMENT: General X-ray: Exam(s) Completed: Chest X-Ray PERIPHERAL IV DATA: Not applicable SIGNED BY: RT Stephanie(R) October 26, 2024 8:54 AM documented in this encounterSelect [facility] Telephone encounter Note* Telephone Encounter - Michelle Mejia APRN.[employer] - 10/25/2024 3:14 PM EDT Signed. Michelle Mejia APRN.[employer] [facility] Work Phone: [phone]) 285-910108-21-2025 Miscellaneous Notes* Telephone Encounter - Michelle Mejia APRN.MAXIMILIANO - 10/25/2024 3:14 PM EDT Signed. Michelle Mejia APRN.[employer] * Telephone Encounter - Noemy Chicas RN - 10/25/2024 2:11 PM EDT Discussed w/ Dr Hancock who would like pt to come in for a CXR. Pt's spouse notified and verbalizes understanding. Xray scheduled for tomorrow @ 8 AM. Bobby/CRIS: Order for CXR pended. Noemy Chicas RN * Telephone Encounter - Noemy Chicas RN - 10/25/2024 1:08 PM EDT Pt c/o worsening pain in his left lung. Notes he's always had burning there since radiation, but ithas worsened over the last 4 days. Describes as a constant burn and ache. Rates his pain 7/10. Denies cough. Notes he feels slightly short of breath. Pt has h/o radiation-induced pulmonary fibrosis. Due for PET on 11/09. What would you advise in the meantime? Noemy Chicas RN documented in this encounterSelect [facility]-2025 Telephone encounter Note * Telephone Encounter - Noemy Chicas RN - 10/25/2024 2:11 PM EDT Discussed w/ Dr Hancock who would like pt to come in for a CXR. Pt's spouse notified and verbalizes understanding. Xray scheduled for tomorrow @ 8 AM. Bobby/CRIS: Order for CXR pended. Noemy Chicas RN [facility]08-21-2025 Telephone encounter Note* Telephone Encounter - Noemy Chicas RN - 10/25/2024 1:08 PM EDT Pt c/o worsening pain in his left lung. Notes he's always had burning there since radiation, but ithas worsened over the last 4 days. Describes as a constant burn and ache. Rates his pain 09/13. Denies cough. Notes he feels slightly short of breath. Pt has h/o radiation-induced pulmonary fibrosis. Due for PET on 11/09. What would you advise in the meantime? Noemy Chicas RN [facility]08-13-2025 History of Present illness Narrative* Dick Miranda MD - 10/17/2024 11:10 AM EDTAssociated Problem(s): Trochanteric bursitis of right hip Pain unchanged follow with ortho. 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 * Dick Miranda MD - 10/17/2024 11:10 AM EDTAssociated Problem(s): Primary insomnia Not sleeping well and try doxepin. * Dick Miranda MD - 10/17/2024 11:09 AM EDTAssociated Problem(s): Essential hypertension BP controlled and monitor PRN. * Dick Miranda MD - 10/17/2024 11:09 AM EDTAssociated Problem(s): Chronic obstructive pulmonary disease (HCC) Symptoms stable and use albuterol PRN. * Dick Miranda MD - 10/17/2024 11:09 AM EDTAssociated Problem(s): Chemotherapy- induced neuropathy (HCC) Symptoms resolved and monitor. * Dick Miranda MD - 10/17/2024 10:00 AM EDT Images from the original note were not included. Subjective Patient ID: Erin Pena is a 68 y.o. male who presents for Hip Pain (Right hip) and Cough. Follow up HTN, COPD, chemo neuropathy, lung cancer, and insomnia. Patient doing well today. Checking BP PRN and typically controlled. BP okay today. Taking medication daily and tolerating without side effects. Neuropathy resolved after stopping chemo. Not having pain or burning in hands or legs. Not on lyrica. Lung cancer responded well to treatment. Had chemo and radiation. Had immune therapy. Currently not on anything and will have PET scan next month. Last PET scan showed tumor much smaller.COPD stable. Mild SOB with exertion. Occasional cough but no sputum. Using albuterol PRN and mild relief. Continues to have severe pain in right hip. Pain on outer hip. Very painful with activity. Injections into bursa not providing relief. In PT and not helping. Likely will need repeat MRI and scheduled with ortho. C/o not sleeping well. Not able to fall asleep and lay awake. Trazodone caused dry mouth. Using OTC tylenol PM and not helping. Review of Systems Constitutional: Negative for fatigue. Respiratory: Negative for cough, shortness of breath and wheezing. Cardiovascular: Negative for chest pain and palpitations. Gastrointestinal: Negative for abdominal pain, diarrhea, nausea and vomiting. Genitourinary: Negative for dysuria. Objective Physical Exam Constitutional: General: He is not in acute distress. Appearance: Normal appearance. HENT: Head: Normocephalic. Right Ear: Tympanic membrane and ear canal normal. Left Ear: Tympanic membrane and ear canal normal. Eyes: Extraocular Movements: Extraocular movements intact. Pupils: Pupils are equal, round, and reactive to light. Cardiovascular: Rate and Rhythm: Normal rate and regular rhythm. Heart sounds: No murmur heard. No friction rub. No gallop. Pulmonary: Breath sounds: Normal breath sounds. No wheezing, rhonchi or rales. Abdominal: General: Bowel sounds are normal. There is no distension. Palpations: Abdomen is soft. Tenderness: There is no abdominal tenderness. There is no guarding or rebound. Musculoskeletal: Left lower leg: No edema. Neurological: Mental Status: He is alert. Assessment/Plan Problem List Items Addressed This Visit Essential hypertension - Primary BP controlled and monitor PRN. Trochanteric bursitis of right hip Pain unchanged follow with ortho. Primary insomnia Not sleeping well and try doxepin. 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 Chronic obstructive pulmonary disease (HCC) Symptoms stable and use albuterol PRN. Chemotherapy-induced neuropathy (HCC) Symptoms resolved and monitor. documented in this encounterSaint Luke's [facility] Hospital–Barry [id number] History of Present illness Narrative* Neha Garcia MD - 09/26/2024 1:45 PM EDT Erin Pena Date of visit: 09/26/2024 Date of : 1955 Age: 68 y.o. 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) Hyporeflexia Other affections of shoulder region, not elsewhere classified Hx of fusion of cervical spine Bilateral carotid artery stenosis Claudication Occlusive disease, arterial Left-sided weakness Chronic obstructive pulmonary disease ([facility]) Malignant neoplasm of upper lobe of left lung ([facility]) Mixed hyperlipidemia Benign prostatic hyperplasia with lower urinary tract symptoms Chemotherapy-induced neuropathy Hypothyroidism, postradioiodine therapy PAD (peripheral artery disease) 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 ([facility]) Allergies Allergen Reactions Sulfa (Sulfonamide Antibiotics) Current Outpatient Medications Medication Sig Dispense Refill albuterol (PROVENTIL HFA;VENTOLIN HFA) 90 mcg/actuation inhaler Inhale 2 puffs every 6 (six) hours as needed for wheezing. 18 g 11 amLODIPine (NORVASC) 10 mg tablet Take 1 tablet (10 mg total) by mouth in the morning. ascorbic acid (VITAMIN C) 500 mg tablet Take 1 tablet (500 mg total) by mouth in the morning. aspirin 81 mg TAKE 1 TABLET (81 MG TOTAL) BY MOUTH IN THE MORNING 90 tablet 1 atorvastatin (LIPITOR) 40 mg tablet Take 1 tablet (40 mg total) by mouth in the morning. cetirizine (ZyrTEC) 10 mg tablet Take 1 tablet (10 mg total) by mouth in the morning. clopidogreL (PLAVIX) 75 mg tablet TAKE 1 TABLET BY MOUTH EVERY DAY IN THE MORNING 90 tablet 1 diazePAM (VALIUM) 5 mg tablet Take 1 tablet (5 mg total) by mouth Three times daily as needed. HYDROcodone-acetaminophen (XODOL) 7.5-300 mg per tablet Take 1 tablet by mouth every 6 (six) hours as needed for pain. krill oil 500 mg capsule Take by mouth. meloxicam (MOBIC) 7.5 mg tablet Take 1 tablet (7.5 mg total) by mouth in the morning. metFORMIN (GLUCOPHAGE) 850 mg tablet Take 1 tablet (850 mg total) by mouth Daily after lunch. 60 tablet 0 multivit-minerals/ferrous fum (MULTI VITAMIN ORAL) Take by mouth. d3 100u and e 180 daily propranoloL (INDERAL) 20 mg tablet Take 1 tablet (20 mg total) by mouth 3 (three) times a day. SYNTHROID 175 mcg tablet Take 1 tablet (175 mcg total) by mouth in the morning. 1 terazosin (HYTRIN) 1 mg capsule Take 1 capsule (1 mg total) by mouth nightly. tiotropium bromide (SPIRIVA RESPIMAT) 2.5 mcg/actuation mist Inhale 2 puffs in the morning. 4 g 12 cholecalciferol (VITAMIN D3) 1,000 units tablet Take 1 tablet (1,000 Units total) by mouth in the morning. (Patient not taking: Reported on 09/26/2024) gabapentin (NEURONTIN) 100 mg capsule Take 1 capsule (100 mg total) by mouth once daily at bedtime.Pt is only taking one tablet a day. hydroCHLOROthiazide (HYDRODIURIL) 50 mg tablet Take 1 tablet (50 mg total) by mouth daily. (Patientnot taking: Reported on 07/31/2024) losartan (COZAAR) 100 mg tablet Take 1 tablet (100 mg total) by mouth in the morning. (Patient not taking: Reported on 07/31/2024) pregabalin (LYRICA) 75 mg capsule Take 1 capsule (75 mg total) by mouth in the morning. (Patient not taking: Reported on 08/06/2024) traZODone (DESYREL) 100 mg tablet Take 1 tablet (100 mg total) by mouth. (Patient not taking: Reported on 09/26/2024) vitamin E 100 units capsule Take 4 capsules (400 Units total) by mouth in the morning. 20 IU . (Patient not taking: Reported on 09/26/2024) No current facility-administered medications for this visit. Chief Complaint Patient presents with Follow-up OV F/U 6-9 MO NO TESTS L/S LLD, SCHED W/PT History of Present Illness Patient with history of squamous cell lung cancer stage IIB, hypertension, high cholesterol, PVD onaspirin on Plavix, diabetes and hypothyroidism patient was seen March 05, 2024 for preop clearance for possible lobectomy had a 2D echo done February 2024 which was normal LV function nuclear stress test also was normal patient was then cleared for surgery Follow up visit today patient says he did not have the surgery done by the elected to do radiation chemotherapy and immunotherapy he is doing well no chest pain has mild shortness of breath no palpitation Past Medical History: Diagnosis Date Carpal tunnel syndrome Hyperlipidemia Hypertension Hypothyroidism No data recorded No data recorded No data recorded Past Surgical History: Procedure Laterality Date APPENDECTOMY 1970 BELPHAROPTOSIS REPAIR BRAIN SURGERY 2014 CARDIAC CATHETERIZATION 2009 CATARACT EXTRACTION 2015 COLONOSCOPY 2016 FINGER AMPUTATION Left 1981 middle digit HAND SURGERY 2009 HEMORROIDECTOMY 1985 NECK SURGERY 1994 c4 fusion and 2001 c5/6 SHOULDER ARTHROSCOPY Left 2012 TYMPANOSTOMY TUBE PLACEMENT 2014 TYMPANOSTOMY TUBE PLACEMENT Left 2014 Family History Problem Relation Age of Onset Stroke Mother Heart disease Father Hypertension Father Social History Socioeconomic History Marital status: Spouse name: Not on file Number of children: Not on file Years of education: Not on file Highest education level: Not on file Occupational History Not on file Tobacco Use Smoking status: Former Current packs/day: 0.00 Average packs/day: 0.8 packs/day for 50.6 years (37.9 ttl pk-yrs) Types: Cigarettes Start date: 1973 Quit date: 09/29/2023 Years since quittin.9 Smokeless tobacco: Never Vaping Use Vaping status: Never Used Substance and Sexual Activity Alcohol use: Yes Comment: moderate Drug use: Never Sexual activity: Defer Other Topics Concern Caffeine Use Yes Social History Narrative Not on file Social Drivers of Health Financial Resource Strain: Low Risk (04/19/2023) Received from [facility] Healthcare Overall Financial Resource Strain (CARDIA) Difficulty of Paying Living Expenses: Not hard at all Food Insecurity: No Food Insecurity (09/26/2024) Hunger Screening Food Insecurity - Worry: Never True Food Insecurity - Inability: Never True Transportation Needs: No Transportation Needs (09/27/2023) PRAPARE - Transportation Lack of Transportation (Medical): No Lack of Transportation (Non-Medical): No Physical Activity: Insufficiently Active (04/19/2023) Received from [facility] Exercise Vital Sign Days of Exercise per Week: 3 days Minutes of Exercise per Session: 30 min Stress: Patient Declined (04/19/2023) Received from [facility] [employer] of Occupational Health - Occupational Stress Questionnaire Feeling of Stress : Patient declined Social Connections: Unknown (04/19/2023) Received from [facility] Social Connection and Isolation Panel [NHANES] Frequency of Communication with Friends and Family: Three times a week Frequency of Social Gatherings with Friends and Family: Once a week Attends [employer] Services: More than 4 times per year Active Member of Clubs or Organizations: Patient declined Attends Club or Organization Meetings: Patient declined Marital Status: Interpersonal Safety: Not At Risk (09/27/2023) Humiliation, Afraid, Rape, and Kick questionnaire Fear of Current or Ex-Partner: No Emotionally Abused: No Physically Abused: No Sexually Abused: No Housing Instability: Low Risk (09/27/2023) Housing Instability Housing Instability: No Review of Systems Review of Systems Constitutional: Positive for malaise/fatigue. HENT: Negative. Eyes: Negative. Cardiovascular: Negative. Respiratory: Positive for cough, shortness of breath and wheezing. Endocrine: Negative. Hematologic/Lymphatic: Bruises/bleeds easily. Skin: Negative. Musculoskeletal: Positive for back pain. Gastrointestinal: Negative. Genitourinary: Negative. Neurological: Negative. Psychiatric/Behavioral: Negative. Allergic/Immunologic: Positive for environmental allergies. Vascular: Negative. CARDIOVASCULAR: Please review HPI. Physical Examination General appearance: Alert, oriented and cooperative. In no acute distress. Skin: Warm and dry to touch. Head: Normocephalic, without obvious abnormality, atraumatic. Ears, Nose, Mouth, Throat: Throat clear without erythema or exudate. Dentition intact. Eyes: Conjunctivae unremarkable, EOM intact. Neck: No JVD, No carotid bruit. Neck supple, trachea midline. Respiratory: Clear to auscultation bilaterally, no use of accessory muscles. Cardiovascular: RRR with normal S1 and S2 with no murmurs. Gastrointestinal: Soft, non-tender. Bowel sounds normal. Musculoskeletal: No peripheral edema. Neurologic: Oriented to time, person and place, affect appropriate. No focal/major motor defects noted. Psychiatric: Appropriate mood, memory and judgement. VITAL SIGNS: BP 148/68 Pulse 64 Ht 167.6 cm (5' 6 ) Wt 79.8 kg (176 lb) SpO2 95% BMI 28.41 kg/m Orders Placed or Reconciled This Encounter Medications meloxicam (MOBIC) 7.5 mg tablet Sig: Take 1 tablet (7.5 mg total) by mouth in the morning. There are no discontinued medications. IMPRESSIONS/PLAN There are no diagnoses linked to this encounter. 1 preop clearance in the past in February 2024 Echo showed normal LV function and wall motion nuclear stress test also was normal patient did not have the surgery done 2 squamous cell lung cancer stage IIB undergoing radiation chemo and immunotherapy patient to ask the oncologist if any of this chemotherapy drugs affects the heart in terms of cardiomyopathy so we can reorder a 2D echo 3 hypertension continue home medication 4 high cholesterol continue home medication 5 diabetes management per primary physician Plan Continue current regimen Follow up in 6 months Will check 2D echo if chemotherapy drugs affects heart In terms of chemo induced cardiomyopathy TODAYS ORDERS No orders of the defined types were placed in this encounter. FOLLOW UP Return in about 6 months (around 03/29/2025). PCP: DICK MIRANDA MD Referring Physician: Dick Miranda MD [address] [place] [address] documented in this encounterNort[facility]07-22[facility] Miscellaneous Notes* Telephone Encounter - Faith Lane CMA - 09/25/2024 2:57 PM EDT Called patient to remind them to bring their most current copy of their medication list with them to their appt. Patient verbalizes understanding. [facility] encounterN[facility] Telephone encounter Note* Telephone Encounter - Faith Lane CMA - 09/25/2024 2:57 PM EDT Called patient to remind them to bring their most current copy of their medication list with them to their appt. Patient verbalizes understanding. [facility]07-17-[facility] Telephone encounter Note* Telephone Encounter - Noemy Chicas RN - 09/20/2024 8:12 AM EDT Results left on pt's personalized voicemail. Advised he call back w/ any questions. Noemy Chicas RN [facility] Work Phone: [phone] Miscellaneous Notes* Telephone Encounter - Noemy Chicas RN - 09/20/2024 8:12 AM EDT Results left on pt's personalized voicemail. Advised he call back w/ any questions. Noemy Chicas RN documented in this encounterSelect [facility]25 Telephone encounter Note * Telephone Encounter - Bella Anand - 09/19/2024 12:12 PM EDT Patient has been scheduled for Labs tomorrow 09/20 @ 9:00. Bella Mathias [facility]07-16-2025 Miscellaneous Notes* Telephone Encounter - Reina Mathias Bella - 09/19/2024 12:12 PM EDT Patient has been scheduled for Labs tomorrow 09/20 @ 9:00. Bella Reina Pss * Telephone Encounter - Noemy Chicas RN - 09/19/2024 12:08 PM EDT Pt notified. Clerical: Pt will be here tomorrow at 9 AM for labs. Please add him to the schedule. Thanks! Noemy Chicas RN * Telephone Encounter - Arley King PA-C - 09/19/2024 12:03 PM EDT Ok to start with labs and go from there. Labs placed. Arley King PA-C * Telephone Encounter - Noemy Chicas RN - 09/19/2024 11:53 AM EDT Pt c/o increasing fatigue over the last 7-10 days. Still completing his self care independently. Denies feeling dizzy or lightheaded. Denies fevers/chills. Denies feeling short of breath. Appetite ispoor, but no more than normal. Reports his lungs feel warm , but this is also not new for pt. Has an occasional cough w/ clear sputum. Nivolumab was discontinued in August d/t headaches. Last treatment was on 07/20. Bobby/CRIS: Pt asks if he could come in and have his labs checked. What would you advise? Noemy Chicas RN documented in this encounterSelect [facility] Telephone encounter Note * Telephone Encounter - Noemy Chicas RN - 09/19/2024 12:08 PM EDT Pt notified. Clerical: Pt will be here tomorrow at 9 AM for labs. Please add him to the schedule. Thanks! Noemy Chicas RN [facility] Work Phone: [phone] Telephone encounter Note* Telephone Encounter - Arley King PA-C - 09/19/2024 12:03 PM EDT Ok to start with labs and go from there. Labs placed. Arley King PA-C [facility]07-16-2025 Telephone encounter Note* Telephone Encounter - Noemy Chicas RN - 09/19/2024 11:53 AM EDT Pt c/o increasing fatigue over the last 7-10 days. Still completing his self care independently. Denies feeling dizzy or lightheaded. Denies fevers/chills. Denies feeling short of breath. Appetite ispoor, but no more than normal. Reports his lungs feel warm , but this is also not new for pt. Has an occasional cough w/ clear sputum. Nivolumab was discontinued in August d/t headaches. Last treatment was on 07/20. Bobby/CRIS: Pt asks if he could come in and have his labs checked. What would you advise? Noemy Chicas RN [facility]07-10-2025 History of Present illness Narrative* Verónica Dumont, PT - 09/13/2024 10:30 AM EDT Images from the original note were not included. Physical Therapy Evaluation Visit Patient Name: Erin Hill Today's Date: 09/13/2024 Encounter Diagnoses Name Primary? Trochanteric bursitis of right hip Yes Visit number: 1 Timed Code Treatment Minutes: 46 minutes Total Treatment Time: 56 minutes Time In: 1030 Time Out: 1132 History: Pt states right hip has been bothering him for about 2 years. Was getting shots from orthoabout every 4 months. States the last 2 shots did not really help. States was recently diagnosed with lung cancer and underwent chemo therapy so hip was placed on hold. Recently had back reaction to chemo and was told he could hold chemo for the summer. Pt now wants to focus on hip since on break. MRI from last year shows 50% tear of right gluteus minimus. Precautions: Lung Cancer Subjective: right hip Pain: 07/14 Objective: PT Evaluation (09/13/2024) HIP AROM: 90 degrees flexion, 20 degrees abduction PROM: 108 degrees flexion, 27 degrees abduction, 15 degrees IR MMT: 4 to 4+/5 flexion, ER 4/5, IR 4-/5; glute max 4-/5, glute med and min 4-/5; unable to perform clam ex in left SL Palpation: moderate tenderness right greater trochanter Special Test: negative right hip sour; pain attempting JAY testing Treatment: Education: HEP education with demonstration, Educated on Eval Findings and POC Manual Therapy: Passive ROM, Joint mobilization, Soft Tissue Mobilization, Myofascial Release, Muscle Energy Technique, Neural Mobilization, Myofascial Cupping, Dry Needling, IASTM, and Scar mobilization as needed. Therapeutic Exercise: (18 minutes) Strength, Endurance, Flexibility, ROM, HEP, Neural Mobilization,Power, and Core Stability as needed. Pt performed and instructed in home program this date; writteninstructions and pictures issued with good pt understanding. Therapeutic Activity: Exercises to improve dynamic activities, functional tasks, functional mobility to return to prior activity level as needed. Neuromuscular re-education: Balance Training, Muscle Facilitation, Dynamic Stability, Core Stabilization, and Blood Flow Restriction Training (BFRT) as needed. Modalities: Heat, Ice, Electrical Stimulation, Ultrasound, Cervical Mechanical Traction, Lumbar Mechanical Traction, Iontophoresis, and Fluidotherapy as needed. CP to right hip in left SL with pillowbetween knees following ex for 10 minutes Assessment: Pt is 68 y/o male with complaints of chronic right hip pain and weakness. Pt with limited right hip ROM due to pain. Hip scour is negative. Pt with moderate tenderness right greater trochanter and significantly limited strength right glute medium and minimus. Pt instructed in home program and will benefit from further PT. Outcome Measure: Lower Extremity Functional Scale (LEFS): 22/80 Rehab Diagnosis: right hip pain and weakness Short Term Goal: To be met in 2 weeks Goal 1: Pt to be instructed in home exercise program. 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 Goal 2: Pt to achieve 4 to 4+/5 strength right glute medius and minimus to assist with functional mobility. Goal 3: Pt to report pain no greater than 2/10 in right hip with ADL's and functional tasks. Goal 4: Pt to score no less than 50/80 on LEFS indicating improved QOL. Pt will benefit from skilled PT for 2-3x/week from 09/13/2024 to 12/06/2024 to address the above impairments. I hereby deem this POC medically necessary. Please sign below. Date: documented in this encounterSaint [facility] [id number] NoteSt. Elizabeth Hospital06-27-2025 History of Present illness Narrative* Jack Hoang MD - 08/31/2024 3:07 PM EDT Radiation Oncology - Follow Up Note PATIENT NAME: Erin Pena PATIENT DIAGNOSIS/PATIENT IDENTIFICATION: Mr. Pena is a 68-year-old gentleman recently diagnosed with anearly stage, [id number], non-small cell lung cancer (SCC) arising in the left lower lobe lung status post biopsy of the lung mass on 10/05/2023. Pathologic staging of the mediastinum on 11/01/2023 was negative. Staging workup with MRI of the brain and PET/CT noted FDG avidity in the approximately 5 cm left upper lobe lung mass with no other areas concerning for disease. He met with Dr. Hancock and Dr. Oreilly and opted to proceed to preoperative systemic therapy followed by surgical resection. He completed his preoperative systemic therapy consisting of 3 cycles of carboplatin Taxol and nivolumab between 11/16/2023 and 12/28/2023. Repeat imaging with CT chest abdomen pelvis from 01/25/2024 notes decrease in size of the left lower lobe lung mass with no new areas concerning for disease progression. He declined surgical resection and proceeded to SBRT to the left chest which he completed on 07/2024 (6000 cGy delivered in 5 fractions). INTERVAL HISTORY: Mr. Pena returns to clinic today for routine follow-up approximately three months after the completion of his radiation treatments. In the interim, he had initial posttreatment imaging with PET/CT on 08/03/2024 showing residual left lower lobe nodular opacity with mild uptake that is not substantially changed. Also noted was new metabolically active subpleural reticular opacity favoring to be benign/inflammatory related to postradiation change. Today he reports breathing well with occasional cough and denies any hemoptysis or difficulty swallowing. Denies any skin irritation the treatment area and does note stable fatigue with fair appetiteand hydration and stable weight. He had been on maintenance immunotherapy which was discontinued due to poor tolerance/headaches. ALLERGIES ALLERGIES Allergen Reactions Sulfa (Sulfonamide * Unknown Unkown, was a child Gabapentin Intolerance Causes Altered mental Status MEDICATIONS: Current Outpatient Medications: fexofenadine HCl (ITZEL ORAL) amLODIPine (NORVASC) 10 mg tablet methylphenidate (RITALIN) 10 mg tablet traZODone (DESYREL) 100 mg tablet MELOXICAM ORAL clopidogrel (PLAVIX) 75 mg tablet Nicotine Polacrilex (NICORETTE) 4 mg lozenge albuterol HFA (PROVENTIL HFA, VENTOLIN HFA) 90 mcg/actuation inhaler propranolol (INDERAL) 20 mg tablet terazosin (HYTRIN) 1 mg capsule metFORMIN (GLUCOPHAGE) 850 mg tablet krill oil 500 mg cap Glucosamine HCl 500 mg tab atorvastatin (LIPITOR) 40 mg tablet aspirin, enteric coated (ASPIRIN, ENTERIC COATED) 81 mg EC tablet levothyroxine (SYNTHROID) 175 mcg tablet ascorbic acid (VITAMIN C) 500 mg tablet multivitamin tablet PHYSICAL EXAM: GENERAL: middle-aged gentleman sitting in chair in no acute distress. VITALS: BP 143/67 Pulse 65 Temp 98.2 Resp 18 Wt 176 lb 12.9 oz (80.2kg) SpO2 95% KPS: 90 HEENT: NC/AT, anicteric sclera HEART: S1S2 LUNGS: non-labored breathing ABDOMEN: soft MUSCULOSKELETAL: no peripheral edema, moves all extremities. NEURO: no focal deficit; A&O X3. RADIOLOGIC DATA: PET/CT (08/03/2024) PRIMARY DISEASE SITE: * Residual left lower lobe nodular opacity with mild uptake is not substantially changed. * New metabolically active posterior left mid lung subpleural reticular opacity and new metabolically active left upper lobe peribronchovascular opacity are favored to be benign/inflammatory, for example representing postradiation change. Attention on follow-up is recommended to ensure resolution. ROWENA DISEASE: * No metabolically active hilar or mediastinal lymphadenopathy. METASTATIC DISEASE: * No metabolically active distant metastases. ASSESSMENT AND PLAN: Mr. Pena is a 68-year-old gentleman recently diagnosed with an early stage,[id number], non-small cell lung cancer (SCC) arising in the left lower lobe lung status post biopsy ofthe lung mass on 10/05/2023. Pathologic staging of the mediastinum on 11/01/2023 was negative. Staging workup with MRI of the brain and PET/CT noted FDG avidity in the approximately 5 cm left upper lobe lung mass with no other areas concerning for disease. He met with Dr. Hancock and Dr. Oreilly and opted to proceed to preoperative systemic therapy followed by surgical resection. He completed his preoperative systemic therapy consisting of 3 cycles of carboplatin Taxol and nivolumab between 11/16/2023 and 12/28/2023. Repeat imaging with CT chest abdomen pelvis from 01/25/2024 notes decrease in size of the left lower lobe lung mass with no new areas concerning for disease progression. He declined surgical resection and proceeded to SBRT to the left chest which he completed on 05/09/2024 (6000cGy delivered in 5 fractions). Mr. Pena is doing as expected approximately 3 months after the completion of his radiation treatments to the left chest having recovered from the acute toxicities of therapy. He discontinued nivolumab due to headaches which have since improved. Initial posttreatment imaging with PET/CT from 07/07/2024 notes residual left lower lobe nodule opacity with mild uptake not substantially changed with new metabolically active subpleural opacity felt to be related to postradiation change. He is been scheduled for repeat PET/CT per Dr. Hancock in approximately 3 months and I will plan to see him afterwards. The patient is aware to contact the clinic in the interim should any questions or concerns a rise. Thank you for allowing us to participate in the care of this patient. Signed by: Jack Hoang MD I spent a total of 20 minutes on the date of the service which included preparing to see the patient, [id number] patient care, and counseling and educating the patient/family/caregiver. This document has been created with the use of voice recognition technology. It may contain inaccuracies, misspellings, inaccurate syntax or inappropriate word context that are a result of the inadequacies/shortcomings of said technology/software. documented in this encounterSelect Medical [facility]06-12-2025 Instructions* Patient Instructions* Lo Hancock MD - 08/16/2024 12:14 PM EDT D/C single agent nivolumab RTC in 12 weeks PET/CT and labs same day prior to seeing me. Continue aspirin and Plavix as prescribed by neurology. Follow-up with neurologist as scheduled documented in this encounterSelect Medical Cleveland [facility]06-12-2025 History of Present illness Narrative* Lo Hancock MD - 08/16/2024 11:45 AM EDT Images from the original note were not included. NAME: Erin Pena [facility] NO.: [id number] DATE OF SERVICE: August 16, 2024 (Khadijah) July 20, 2024 (Lenny) Some elements in this clinic note that are critical to medical decision making have been carefully reviewed and included from a prior clinic note dated: June 15, 2024 (Lenny) Referring Provider: Gerald Abdi MD Additional Clinicians involved in Erin Pena's care: Dr. Savanah Oreilly VIRTUAL VISIT PROGRESS NOTE This is a virtual visit using MyChart Zoom Video Visit. It required patient- provider interaction for the medical decision making as documented below. I have communicated my name and active licensure. The patient's identity and physical location wereverified at the time of this visit. Either the patient or their legal telephone claims representative has been informed of the risks and benefits of -- and alternatives to -- treatment through a remote evaluation andconsents to proceed with the evaluation remotely. DIAGNOSIS: Squamous cell lung ca Left upper lobe - cT3 cNx, cM0 - stage IIB. 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 Bronchoscopy - mediastinal and hilar LN's negative. LLLbx + Squamous cell carcinoma. Completed neoadjuvant chemo / IO late December 2023. Unfortunately does not appear to be a good candidate for surgery and is exploring SBRT vs. Chemo/RT followed by immunotherapy. Overall he has had apretty good response to date. (February 24, 2024 ). He completed SBRT and was started on maintenance I/O. Since then, he has been suffering with headaches with no obvious cause evident on imaging. He has associated the headaches with the immunotherapyand as he gets further from his most recent infusion in mid July 2024, his headaches have started tolessen. SUMMARIZED PLAN OF CARE: D/C single agent nivolumab RTC in 12 weeks PET/CT and labs same day prior to seeing me. Continue aspirin and Plavix as prescribed by neurology. Follow-up with neurologist as scheduled 1. Malignant neoplasm of unspecified part of unspecified bronchus or lung (HCC) Malignant neoplasm of lower lobe, left bronchus or lung (HCC) Personal history of malignant neoplasm of bronchus and lung Recent PET scan shows residual left lower lobe nodular opacity with mild uptake, not substantially changed. New metabolically active posterior left mid lung subpleural reticular opacity and left upper lobe peribronchovascular opacity are favored to be benign and inflammatory, possibly representing post-radiation changes. No evidence of rowena or metastatic disease. - Schedule follow-up PET scan in 12 weeks to monitor for any changes. - Review PET scan results with patient on the same day as the scan. 2. Immunotherapy Patient has received 3 cycles of single-agent nivolumab since May 18. Headaches have resolved this week, possibly related to immunotherapy. - Hold immunotherapy treatment temporarily. - Cancel scheduled immunotherapy session for tomorrow. 3. Nonintractable headache, unspecified chronicity pattern, unspecified headache type Headaches have resolved this week after being severe for the first two weeks post-immunotherapy. 4. Malaise and fatigue 5. Abnormal blood chemistry Last blood tests on August 03 showed essentially normal chemistries. 6. Anemia, unspecified type Mild anemia noted in last blood tests on August 03, expected to recover. 7. Radiation-induced pulmonary fibrosis (HCC) Recent PET scan shows changes possibly representing post-radiation effects. - Continue monitoring with follow-up PET scan in 12 weeks. 8. Other specified disorders of thyroid Thyroid function tests were normal on last blood tests. HPI: CASE HISTORY: Reverse Chronological Order 08/08/2024 - MRI Brain wo/w @ [facility]: 1. No MRI evidence of acute intracranial hemorrhage, mass, infarct. 2. 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 There is filling of the right MCA distribution. The CTA is more sensitive in this regard. 3. Global cerebral volume loss and white matter changes typically age-related volume loss and chronic microvascular changes. 4. Focal encephalomalacia of the inferior left occipital lobe. No hemosiderin to suggest previous hemorrhage. This is most likely postprocedural given adjacent craniectomy, or chronic ischemic. 08/03/2024 - PET/CT: 07/31/2024 - CTA Neck: *ADDENDUM*Please note that the right common and internal carotid artery occlusion are chronic and unchanged when compared with September 27, 2023. 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 Right common carotid artery is occluded close to its origin. The right internal carotid artery is occluded within its intracranial portion. Please see the report from the CTA Head for complete details. Heavy calcific plaque deposition origin left internal carotid artery without flow-limiting stenosis. Stenosis estimated at 20% No hemodynamically significant stenosis of the left internal carotid artery relative to the distal internal carotid artery diameter. 05/18/2024 - 07/20/2024 - maintenance single agent nivolumab x 3 cycles - Stopped due to intractable headaches. 05/02/2024-05/11/2024 - Radiation to chest per Dr. Hoang 04/03/2024 - PET/CT: CHEST: Decreased FDG avid left lower lobe malignant mass, residual small opacity with mild uptake HEAD/NECK, ABDOMEN/PELVIS, MUSCULOSKELETAL: No FDG avid disease. 01/25/2024 - CT CAP: Chest: Decreased size of the left lower lobe mass. No new suspicious appearing pulmonary nodules orthoracic lymphadenopathy. A/P: No metastatic disease in the abdomen or pelvis. 11/16/2023-12/28/2023 - 3 cycles of Carbo/Taxol + Nivo q 3 weeks (C2 & 3: Decrease Taxol to 175and Carbo AUC to 5) 11/01/2023 - Bronchoscopy: with Dr. Craig Cytology: 5 lymph nodes: Negative for malignant cells. Benign lymphoid sample 10/21/2023 - PET/CT: Abnormal uptake confined to the left upper lobe mass without evidence for metastatic disease. 10/05/2023 - Lung, left lower lobe, core biopsy: at [facility] - Invasive squamous cell carcinoma Comment: In order to classify the neoplasm, immunohistochemical staining is performed on 1B and demonstrates that the tumor cells are diffusely positive for AE1/AE3 and p40, and negative for TTF-1 and Napsin A with adequate controls, supporting the above diagnosis 09/28/2023 - CT Chest: 5.2 cm left upper lobe mass with satellite nodule, concerning for malignancy. Focal necrotizing pneumonia felt less likely but could appear similarly in the appropriate clinical setting. 09/28/2023 - MRI Brain: No acute intracranial findings. 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 09/27/2023 - CTA Neck: Partially visualized lobulated left lower lobe pulmonary mass measuring up to 4.8 cm highly concerning for malignancy. Complete CT chest examination recommended for further evaluation. 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 Mild (less than 50%) luminal narrowing of the proximal left internal carotid artery. 09/27/2023-09/29/2023 - Admitted at [facility] with left sided weakness, slurred speech - stroke workup negative 09/25/2023 - ER for bilateral leg weakness Updated Visit, August 16, 2024: Sergio and his Mandy present by secure Zoom video conference. Pre and post treatment images. On 10/20/2022, patient was diagnosed with lung cancer. Initial PET scan showed significant metabolic activity in the lung mass. He underwent SBRT followed by chemotherapy combined with immunotherapy.On 05/18/2022, he started maintenance therapy with single-agent nivolumab and has completed three cycles. Two weeks ago, a follow-up PET scan revealed no rowena or metastatic disease. There was a residual left lower lobe nodular opacity with mild uptake, which had not substantially changed. New metabolically active posterior left mid-lung subpleural reticular opacity and left upper lobe peribronchovascular opacity were noted, favored to be benign and inflammatory, possibly representing post- radiation changes. Patient reports experiencing daily headaches that began after starting nivolumab. The headaches were most severe during the first two weeks and began to improve by the third week. He has not been taking Ritalin consistently. The headaches have resolved as of this week. Recent labs from 08/03/2022 showed mild anemia, normal thyroid function, and normal chemistries. (No date) PET Scan: - Rowena disease negative - Metastatic disease negative - Residual left lower lobe nodular opacity with mild uptake, unchanged - New metabolically active posterior left mid lung subpleural reticular opacity, new metabolically active left upper lobe peribronchovascular opacity, both favored to be benign and inflammatory, possibly post-radiation changes (10/20) PET Scan: - Hypermetabolic left lower lobe mass with significant tracer uptake (08/03) Blood Tests: - Mild anemia noted - Thyroid parameters within normal limits - Chemistry panel within normal limits MRI (date not provided): - Prior stroke-like events - Chronic changes consistent with arterial disease of the brain Head: (-) headache Updated Visit, July 20, 2024: Erin Pena returns for scheduled follow-up. He remains on single agent nivolumab every 4 weeksand is tolerating well. He and his recently were on a trip to his country and he passed out. He reports that he lost consciousness for a few seconds. At that time he did not seek medical attention. He is unsure what was the cause of passing out. He denies any obvious injuries. He currently denies headaches and vision changes. He is scheduled to see his neurologist in August. He is drinking plenty of fluids. He remains on aspirin and Plavix. He denies any bleeding or abnormal bruising. His breathing is unchanged. He denies fevers, chills, night sweats and signs/symptoms of infection. Overall, he is doing well. Patient has noticed a skin lesion to his right upper ear. He has seen dermatology in the past. Updated Visit, June 15, 2024: Erin Pena returns for scheduled follow-up. He received cycle 1 nivolumab on 05/18/2024 and tolerated it well. He does not feel well the day after his treatment. He complains of a dry mouth and has been trying [id number] products for the dry mouth. He had had some chest and rib pain afterdoing yard work. He states that he overdid it . He denies any skin rash. He has some skin burning to his shins and also states that he has had vascular issues to his lower legs. He has been applyingextra lotion for the dryness. He denies diarrhea. No abdominal pain. He actually had an episode of constipation which was eventually resolved with [id number]-[id number] medications. He has had no headaches. He denies blurred vision. He has had floaters and has seen the eye doctor several times. It was determined likely cause to be from age. He denies fevers, chills, night sweats and signs/symptoms of infection. No bleeding or abnormal bruising. Updated Visit, May 18, 2024: Sergio returns with Mandy for a follow up. He completed his course of radiation. Endorses a cough and a burning sensation as a result of treatment. He is in agreement to resume nivolumab only today, reviewed warning signs of pneumonitis. Discussed the plan for 2 years of immunotherapy as he did not have resection. He also mentions redness on his thighs - will continue to monitor. Updated Visit, April 11, 2024: Sergio returns with Mandy for a follow up. Recent PET/CT shows continued response. He is scheduled to start a short course of radiation with Dr. Hoang. Will plan to start singe agent nivolumab following radiation. Updated Visit, February 24, 2024: Sergio returns with Mandy for a follow up. He has met with Dr. Oreilly to consider surgery - patient reports he may not be a candidate for surgery at this time. He is undergoing pulmonary testing and received a referral to radiation. If surgery he not safe for him, radiation would be a sufficient treatment option. Following his NM lung perfusion scan on 02/17/2024, he developed fatigue and generalized body aches. He has sharp pains in his heels when waking up in the morning, more recently the painspread to his toes. 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 CBC is normal, potassium remains low - I recommended he start a supplement. Updated Visit, December 28, 2023: Sergio and his , Mandy, return for his third and final planned cycle of Carbo/Taxol + Nivo. He complains of worsening dyspnea on exertion and productive coughing. He has gained weight recently - admits he is eating more now that he has stopped smoking. Lungs sound clear in all four quadrants. Worsening anemia and weight gain may be the cause of dyspnea. It is unlikely he has pneumonitis given his symptoms but advised him to contact the office dyspnea continues. He also endorses irritability which he feels is due to gabapentin - will discontinue. He has been prescribed Ritalin in the past to manage mood disorders - will send a new prescription. 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 He has not been diagnosed with diabetes although will be seeing his PCP soon to consider treatment for pre-diabetes. They are going to a football game in [place] around [facility], will complete CT CAP and surgery when he returns from his trip. Updated Visit, December 07, 2023: Sergio returns with Mandy for treatment. He endorses feeling like he was hit by a truck starting on the third day following treatment. He experiences nausea, vomiting, and acid reflux at night. I recommended he sleep with his head elevated and start his antiemetics today. He is treating neuropathywith gabapentin, is improving now. I will reduce his chemotherapy dose to manage toxicity. He has lost his hair due to treatment. Updated Visit, November 16, 2023: Sergio returns with Mandy to begin Carbo/Taxol + Nivo. He underwent a bronchoscopy on 10/31 - negative for rowena involvement. Plan for 3 cycles of treatment prior to resection. He is slightly anemic today, will check iron studies on Day 10 with david counts. Initial Visit, October 21, 2023: Erin Sergio Pena presents today for a Hematology and Oncology evaluation and second opinion.He is joined by his , Mandy. 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 He completed a PET/CT this morning which shows confined uptake in the left lung without metastatic disease. I recommended chemo+immuno treatment followed by surgery once staging studies are completed. He will also need PFTs to give predictive capacity following a potential resection. He is in agreement to start after staging is complete. Will refer him to Drs. Craig and Afia forsurgical evaluation. 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 Erin's [id number] is Arie Olivia, who is my patient also. REVIEW OF SYSTEMS Per HPI and otherwise negative by full review of organ systems. ECOG PERFORMANCE STATUS: 1 PHYSICAL EXAMINATION: Vitals: There were no vitals taken for this visit. There is no height or weight on file to calculate BSA. Exam limited to gross visualization where appropriate. Gen.: This is an age-appropriate patient in no acute distress. Head: Appears atraumatic with no visible lesions. Eyes: Pupils equally round and reactive to light, extraocular muscles are intact. Neck: Supple. Respiratory: Appears to be respiring comfortably. Neurologic: Nonfocal to gross visualization. Alert and oriented 3. Psychiatric: No evidence of inappropriate anxiety or depression. Skin: Visible areas of skin without rash, lesions, wounds or petechiae. ALLERGIES: ALLERGIES Allergen Reactions Sulfa (Sulfonamide * Unknown Unkown, was a child Gabapentin Intolerance Causes Altered mental Status MEDICATIONS: fexofenadine HCl (ITZEL ORAL) Take 180 mg by mouth. amLODIPine (NORVASC) 10 mg tablet Take 10 mg by mouth once daily. methylphenidate (RITALIN) 10 mg tablet Take 1 tablet by mouth two times a day for 30 days. potassium chloride ER (KLOR-CON) 20 mEq tablet Take 1 tablet by mouth once daily. Take 1 tablet by mouth twice daily x3 days then take 1 tablet by mouth daily pregabalin (LYRICA) 75 mg capsule Take 1 capsule by mouth two times a day for 30 days. traZODone (DESYREL) 100 mg tablet Take 1 tablet by mouth daily at bedtime. MELOXICAM ORAL Take by mouth. clopidogrel (PLAVIX) 75 mg tablet Take 75 mg by mouth once daily. Nicotine Polacrilex (NICORETTE) [address] 4 mg between cheek and gum as needed. albuterol HFA (PROVENTIL HFA, VENTOLIN HFA) 90 mcg/actuation inhaler Inhale 2 Puffs as instructed every 6 hours as needed. propranolol (INDERAL) 20 mg tablet TAKE 1 TABLET BY MOUTH NEEDED FOR ANXIETY ATTACKS ONCE A DAY terazosin (HYTRIN) 1 mg capsule Take 1 mg by mouth daily at bedtime. metFORMIN (GLUCOPHAGE) 850 mg tablet Take 850 mg by mouth daily with breakfast. krill oil 500 mg cap Take 1 capsule by mouth once daily. Glucosamine HCl 500 mg tab Take 1 tablet by mouth once daily. atorvastatin (LIPITOR) 40 mg tablet Take 40 mg by mouth once daily. aspirin, enteric coated (ASPIRIN, ENTERIC COATED) 81 mg EC tablet Take 81 mg by mouth once daily. levothyroxine (SYNTHROID) 175 mcg tablet Take 175 mcg by mouth daily before breakfast. ascorbic acid (VITAMIN C) 500 mg tablet Take 500 mg by mouth once daily. multivitamin tablet Take 1 tablet by mouth once daily. LABORATORY VALUES: WBC (k/uL) Date Value 08/03/2024 8.20 RBC (m/uL) Date Value 08/03/2024 3.96 (L) Hemoglobin (g/dL) Date Value 08/03/2024 11.6 (L) Hematocrit (%) Date Value 08/03/2024 34.6 (L) MCV (fL) Date Value 08/03/2024 87.4 MCH (pg) Date Value 08/03/2024 29.3 MCHC (g/dL) Date Value 08/03/2024 33.5 RDW-CV (%) Date Value 08/03/2024 14.1 Platelet Count (k/uL) Date Value 08/03/2024 283 MPV (fL) Date Value 08/03/2024 9.0 Glucose (mg/dL) Date Value 08/03/2024 90 BUN (mg/dL) Date Value 08/03/2024 19 Creatinine (mg/dL) Date Value 08/03/2024 0.67 (L) Sodium (mmol/L) Date Value 08/03/2024 146 (H) Potassium (mmol/L) Date Value 08/03/2024 4.0 Chloride (mmol/L) Date Value 08/03/2024 106 CO2 (mmol/L) Date Value 08/03/2024 27 Protein, Total (g/dL) Date Value 08/03/2024 6.4 Albumin (g/dL) Date Value 08/03/2024 4.4 Calcium, Total (mg/dL) Date Value 08/03/2024 9.8 Alkaline Phosphatase (U/L) Date Value 08/03/2024 79 Bilirubin, Total (mg/dL) Date Value 08/03/2024 0.3 AST (U/L) Date Value 08/03/2024 12 (L) ALT (U/L) Date Value 08/03/2024 11 DIAGNOSIS: (C34.90) Malignant neoplasm of unspecified part of unspecified bronchus or lung (HCC) (primary encounter diagnosis) Plan: NM PET/CT SKULL-THIGH SUBSEQUENT, COMPREHENSIVE METABOLIC PANEL, COMPLETE BLOOD COUNT AND DIFFERENTIAL, HEMOGLOBIN A1C, CORTISOL, SERUM, THYROID STIMULATING HORMONE (Z29.89) Immunotherapy Plan: HEMOGLOBIN A1C, CORTISOL, SERUM, THYROID STIMULATING HORMONE (R51.9) Nonintractable headache, unspecified chronicity pattern, unspecified headache type (R53.81, R53.83) Malaise and fatigue Plan: CORTISOL, SERUM, THYROID STIMULATING HORMONE (R79.9) Abnormal blood chemistry Plan: HEMOGLOBIN A1C, CORTISOL, SERUM (D64.9) Anemia, unspecified type (C34.32) Malignant neoplasm of lower lobe, left bronchus or lung (HCC) (Z85.118) Personal history of malignant neoplasm of bronchus and lung (J70.1) Radiation-induced pulmonary fibrosis (HCC) (E07.89) Other specified disorders of thyroid PAST MEDICAL HISTORY Diagnosis Date Chronic obstructive pulmonary disease (HCC) 10/20/2023 Hypertension Hypothyroidism Lung cancer (HCC) 2023 refBy [place] Other affections of shoulder region, not elsewhere classified 03/14/2012 PAST SURGICAL HISTORY Procedure Laterality Date APPENDECTOMY BRAIN SURGERY HX COLONSCOPY SCREENING HIGH RISK FINGER AMPUTATION (SPECIFY DIGIT) HX HAND SURGERY HX HEMORROIDECTOMY INTERNAL LUNG BIOPSY Left NECK SURGERY HX PAST SURGICAL HISTORY OF Heart cath REMV CATARACT EXTRACAP,INSERT LENS S KIT CRAINIOTOMY [id number] SHOULDER ARTHROSCOPY/SURG TYMPANOSTOMY GENERAL ANESTHESIA XR CERVICAL FUSION OR C4 fusion Social History Tobacco Use Smoking status: Former Current packs/day: 0.00 Average packs/day: 0.5 packs/day for 50.0 years (25.0 ttl pk-yrs) Types: Cigarettes Start date: 09/22/1973 Quit date: 09/23/2023 Years since quittin.8 Passive exposure: Current Smokeless tobacco: Never Tobacco comments: Quit September 26 Vaping Use Vaping status: Former Substance Use Topics Alcohol use: No Drug use: No FAMILY HISTORY Problem Relation Age of Onset Stroke Mother Cancer Mother Heart disease Father Hypertension Father Stroke Paternal Grandmother Anesthesia Problems No Family History I spent a total of 30 minutes on the date of service which included preparing to see the patient, [id number] patient care, completing clinical documentation, obtaining and/or reviewing separately obtained history, counseling and educating the patient/family/caregiver, ordering medications, tests,or procedures, independently interpreting results (not separately reported), communicating results to the patient/family/caregiver, and care coordination (not separately reported). Lo Hancock MD, CPE Hematology and Oncology Services Provided at: [place], [place] CC: Angulo Trinidad [address] [facility] [address] [facility] [id number] Basia Vega MD [address] [facility] [id number] Savanah Oreilly MD documented in this encounterSelect [facility] [place] [facility] Telephone encounter Note* Telephone Encounter - Guillermina Rodriguez RN - 08/10/2024 2:35 PM EDT Discussed recommendation from Dr Waggoner. Pt verbalized understanding. Pt agreeable to phone call on 08/16. Guillermina Rodriguez RN [facility] [place] [facility] Work Phone: [phone] Miscellaneous Notes* Telephone Encounter - Guillermina Rodriguez RN - 08/10/2024 2:35 PM EDT Discussed recommendation from Dr Waggoner. Pt verbalized understanding. Pt agreeable to phone call on 08/16. Guillermina Rodriguez RN * Telephone Encounter - Delilah Cote - 08/10/2024 1:43 PM EDT Patient is scheduled for a phone visit at 11:45 am on 08/16/2024 for BOBBY to go over results. If you need me to call him I can.. ALIVIA Sun * Telephone Encounter - Lo Hancock MD - 08/10/2024 12:29 PM EDT MRI doesn't really explain headaches unless they are vascular And his PET/CT looked ok - not sure what could be causing the headaches. 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 I can see him next week * Telephone Encounter - Guillermina Rodriguez RN - 08/10/2024 9:58 AM EDT Pt calls stating he had an MRI at [facility] and would like to know the results. Please review and advise. Pt states he's been having headaches for some time now and has been associating it with the immunotherapy, and he'd like to meet with Dr Waggoner or talk with him over the phone before his next treatmentregarding the results and plan of care. Please advise Guillermina Rodriguez RN documented in this encounterSelect Medical [place] [facility] Telephone encounter Note * Telephone Encounter - Delilah Cote - 08/10/2024 1:43 PM EDT Patient is scheduled for a phone visit at 11:45 am on 08/16/2024 for BOBBY to go over results. If you need me to call him I can.. ALIVIA Sun [facility] [place] [facility]06-06-2025 Telephone encounter Note* Telephone Encounter - Lo Hancock MD - 08/10/2024 12:29 PM EDT MRI doesn't really explain headaches unless they are vascular And his PET/CT looked ok - not sure what could be causing the headaches. 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 I can see him next week [facility] [place] [facility]06-06-2025 Telephone encounter Note* Telephone Encounter - Guillermina Rodriguez RN - 08/10/2024 9:58 AM EDT Pt calls stating he had an MRI at [facility] and would like to know the results. Please review and advise. Pt states he's been having headaches for some time now and has been associating it with the immunotherapy, and he'd like to meet with Dr Waggoner or talk with him over the phone before his next treatmentregarding the results and plan of care. Please advise Guillermina Rodriguez RN [facility] [place] [facility]06-03-2025 Telephone encounter Note* Telephone Encounter - Noemy Chicas RN - 08/07/2024 1:54 PM EDT Pt notified and verbalizes understanding. Denies any new or worsening cough or SOB. Noemy Chicas RN [facility] [place] [facility] Work Phone: [phone]) [phone] Miscellaneous Notes* Telephone Encounter - Noemy Chicas RN - 08/07/2024 1:54 PM EDT Pt notified and verbalizes understanding. Denies any new or worsening cough or SOB. Noemy Chicas RN * Telephone Encounter - Lo Hancock MD - 08/07/2024 1:28 PM EDT Overall PET looks great - he does have some inflammatory changes in the lungs that show up on the PET. * Telephone Encounter - Noemy Chicas RN - 08/07/2024 12:23 PM EDT Pt requesting results of last week's PET. Please review and advise. Thanks! Noemy Chicas RN documented in this encounterSelect [facility] Telephone encounter Note * Telephone Encounter - Lo Hancock MD - 08/07/2024 1:28 PM EDT Overall PET looks great - he does have some inflammatory changes in the lungs that show up on the PET. [facility]06-[facility] Telephone encounter Note* Telephone Encounter - Noemy Chicas RN - 08/07/2024 12:23 PM EDT Pt requesting results of last week's PET. Please review and advise. Thanks! Noemy Chicas RN [facility]06-03-2025 Telephone encounter Note* Telephone Encounter - Ambar Lux - 08/07/2024 11:28 AM EDT [facility] returned my call and Sergio is scheduled 08/08/24 at 11:00 AM for his MRI Ambar B PSS [facility]06-03-2025 Miscellaneous Notes* Telephone Encounter - Ambar Lux - 08/07/2024 11:28 AM EDT [facility] returned my call and Sergio is scheduled 08/08/24 at 11:00 AM for his MRI Ambar B PSS * Telephone Encounter - Ambar Lux - 08/07/2024 10:35 AM EDT Called [facility] to follow up to see if MRI was scheduled. Reached a voicemail and left a message to please return my call Ambar B PSS * Telephone Encounter - Ambar Lux - 08/06/2024 9:36 AM EDT Spoke to [facility] imaging and they state they received approval this morning. They will reach out todayto get patient scheduled Ambar B PSS * Telephone Encounter - Brittni Morrell - 08/02/2024 9:08 AM EDT Order received at [facility], working on prior auth and will call patient. * Telephone Encounter - Brittni Morrell - 08/01/2024 3:20 PM EDT Faxed order to [facility] in [place] * Telephone Encounter - Noemy Chicas RN - 08/01/2024 2:43 PM EDT Pt notified and agrees to MRI. Clerical: Pt would like the MRI done at [facility] in [place]. Please schedule and call pt w/ the appointment. Thanks! Noemy Chicas RN * Telephone Encounter - Arley King PA-C - 08/01/2024 2:26 PM EDT MRI of the brain would be needed to look at his pituitary gland to look for hypophysitis as well asadditional labs if this is immunotherapy related. Arley King PA-C * Telephone Encounter - Noemy Chicas RN - 08/01/2024 10:07 AM EDT ER work up showed no acute findings. CTA head and neck showed complete occlusion of the right internal carotid artery. This is unchanged from prior study. ER records can be viewed through Care Everywhere. Pt still c/o headache this morning. Dizzy at times when standing. Still c/o ongoing fatigue. Pt andspouse feel his symptoms related to the immunotherapy. Last treated w/ Opdivo on 07/20. Thyroid and cortisol were both normal at that time. Bobby/CRIS: What would you advise? Noemy Chicas RN * Telephone Encounter - Agata Briceño - 08/01/2024 9:46 AM EDT Patient went to [facility] ER. Labs and imaging pulled through care everywhere. ER note not available yet. * Telephone Encounter - Noemy Chicas RN - 07/31/2024 3:10 PM EDT Pt notified and verbalizes understanding. Recommended he go to [facility] ER, but pt would prefer to go to [facility] ER since it's closer to home. Report phoned to Ramu @ [facility] ER. Last office note, recent CT head, and med list faxed. Taryn: Please scan ER records when available. Thanks! Noemy Chicas RN * Telephone Encounter - Arley King PA-C - 07/31/2024 2:39 PM EDT My recommendation stands. Arley King PA-C * Telephone Encounter - Noemy Chicas RN - 07/31/2024 2:24 PM EDT Pt calls w/ c/o persistent headache and fatigue. Rates each one 6-09/13. Notes only a slight improvement since he called last week. Headache is tolerable w/ Tylenol and [place]. Pt denies dizziness or vision changes. It was advised last week per Arley that pt go to ER if his symptoms worsen due to his h/o recent fall and use of blood thinners. Advised pt to go to ER as originally recommended since his symptoms have only slightly improved. Pt questions why the need for ER. Explained our concerns of a slow brain bleed as noted per Arley. Pt reluctant to go. Asks if we could do a CT of the head when here for hisPET on Tuesday. Explained to pt that a bleed is an urgent matter that would require inpatient management. Pt verbalizes understanding and remains reluctant to go to ER. Bobby/CRIS: Any additional recommendations other than what was previously advised? Noemy Chicas RN documented in this encounterSelect [facility] Telephone encounter Note * Telephone Encounter - Ambar Lux - 08/07/2024 10:35 AM EDT Called [facility] to follow up to see if MRI was scheduled. Reached a voicemail and left a message to please return my call Ambar Roche PSS [facility] History of Present illness Narrative* Bina Griffin, DO - 08/06/2024 10:00 AM EDT Images from the original note were not included. CC: Chief Complaint Patient presents with Follow-up 3 month follow up; BCAS; with no testing Bilateral carotid artery stenosis; patient is having some head pain fat a 4 right now; been going on for a while now has MR testing coming up for it 68 y.o. male w/ COPD, lung cancer, HTN, hypothyroidism, carotid artery stenosis and peripheral arterial disease. 02/13/24 (Dr. Conchita Moreira):. C/o significant calf pain w/ ambulation. Unable to tolerate pletal. Discussed potential intervention (bypass). Continue w/ med mgmt and activity. RTC 3 mo. 04/09/24: Continues to follow w/ oncology for lung cancer. Over last 3 months feels RLE claudicationhas worsened w/ very limited walking distance prior to calf pain. + intermittent nocturnal heel pains. Denies wounds/tissue loss. Continues to try and walk as much as able however very limited. Questioning if related to chemo. Continue w/ activity as tolerated, monitor symptoms, RTC 3-6 mo. 08/06/24: Pt presented to office w/ his who was present for entire visit. Pt states since last seen in office he has overall been same. Continues w/ overall limited activity and inability to walkfar enough to generate LE symptoms. Recently stopped lyrica and feels like his LE feel better now off medication than before. Recently w/ c/o new headaches - was sent to ED 07/31/24 per oncologist dueto concern for intracranial bleeding. CT images negative. Now scheduled for MRI brain 08/08/24. Denies any other new issues/concerns. Denies foot wounds/tissue loss. 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) Hyporeflexia Other affections of shoulder region, not elsewhere classified Hx of fusion of cervical spine Bilateral carotid artery stenosis Claudication Occlusive disease, arterial Left-sided weakness Chronic obstructive pulmonary disease (CMS-HCC) Malignant neoplasm of upper lobe of left lung (CMS-HCC) Mixed hyperlipidemia Benign prostatic hyperplasia with lower urinary tract symptoms Chemotherapy-induced neuropathy Hypothyroidism, postradioiodine therapy PAD (peripheral artery disease) 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 (CMS-HCC) BP 150/74 (BP Site: Right Arm, BP Postition: Sitting, BP CUFF SIZE: M (9-13 inches)) Pulse 57 Ht 167.6 cm (5' 6 ) Wt 79.4 kg (175 lb) SpO2 96% BMI 28.25 kg/m Past Medical History: Diagnosis Date Carpal tunnel syndrome Hyperlipidemia Hypertension Hypothyroidism Past Surgical History: Procedure Laterality Date APPENDECTOMY 1970 BELPHAROPTOSIS REPAIR BRAIN SURGERY 2015 CARDIAC CATHETERIZATION 2009 CATARACT EXTRACTION 2015 COLONOSCOPY 2016 FINGER AMPUTATION Left 1981 middle digit HAND SURGERY 2010 HEMORROIDECTOMY 1985 NECK SURGERY 1994 c4 fusion and 2001 c5/6 SHOULDER ARTHROSCOPY Left 2012 TYMPANOSTOMY TUBE PLACEMENT 2014 TYMPANOSTOMY TUBE PLACEMENT Left 2014 Physical Exam: Physical Exam Vitals and nursing note reviewed. Constitutional: Appearance: Normal appearance. HENT: Head: Normocephalic and atraumatic. Pulmonary: Effort: Pulmonary effort is normal. Musculoskeletal: General: Normal range of motion. Comments: Moving all ext equally Skin: General: Skin is warm and dry. Neurological: General: No focal deficit present. Mental Status: He is alert and oriented to person, place, and time. Psychiatric: Attention and Perception: Attention normal. Mood and Affect: Mood normal. Speech: Speech normal. Behavior: Behavior is cooperative. Testing Reviewed: CBC with Differential: Lab Results Component Value Date WBC 10.4 07/31/2024 HGB 11.7 (L) 07/31/2024 HCT 34.0 (L) 07/31/2024 PLT 345 07/31/2024 MCV 86 07/31/2024 MCH 29.6 07/31/2024 MCHC 34.3 07/31/2024 RDW 14.6 07/31/2024 RDW 14.4 09/29/2023 BMP: Lab Results Component Value Date SODIUM 132 (L) 07/31/2024 K 3.2 (L) 07/31/2024 CL 101 07/31/2024 CL 98 09/29/2023 CO2 27 07/31/2024 BUN 14 07/31/2024 CREATININE 0.66 (L) 07/31/2024 CREATININE 0.56 (L) 09/29/2023 EGFR >90 07/31/2024 EGFR >90 09/29/2023 GLU 105 (H) 07/31/2024 GLU 102 (H) 07/31/2024 GLU 159 (H) 09/28/2023 Assessment: Encounter Diagnoses Name Primary? Internal carotid artery stenosis, bilateral Occlusive disease, arterial Atheroembolism of bilateral lower extremities (CMS-HCC) Sergio was seen today for follow-up. Diagnoses and all orders for this visit: Internal carotid artery stenosis, bilateral Occlusive disease, arterial - Vas art doppler lwr bilat mult lev/PVR; Future Atheroembolism of bilateral lower extremities (CMS-HCC) - Vas art doppler lwr bilat mult lev/PVR; Future Plan of care: Please note that total time spent was 15 minutes: Including but not limited to: Preparing to see the patient (e.g., review of tests) Obtaining and/or reviewing separately obtained history Performing a medically appropriate examination and evaluation Counseling and educating the patient/family/caregiver Ordering medications, tests, or procedures Documenting visit details Sergio was seen today for follow-up. Diagnoses and all orders for this visit: Internal carotid artery stenosis, bilateral Occlusive disease, arterial - Vas art doppler lwr bilat mult lev/PVR; Future 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) - Vas art doppler lwr bilat mult lev/PVR; Future Erin Pena is a 68 y.o. White or male with h/o COPD, lung cancer, HTN, hypothyroidism, carotid artery stenosis and peripheral arterial disease. Asymptomatic carotid artery disease: CTA 09/2023: R- CCA/ICA chronic occlusion; L - <50% ICA stenosis No indication for surgical intervention unless symptomatic w/ >50% stenosis or asymptomatic w/ disease progression >70-80% Continue w/ medical mgmt Surveillance plan: repeat carotid duplex yearly to monitor for disease progression. Next due 07/2025. Peripheral arterial disease: w/ short distance claudication Testing summary: CTA abd aorta w/ runoff 09/26/23: R - SFA occlusion, L - SFA occlusion vs stenosis CARLI/PVR 04/10/24: R- 0.40, L - 0.39 Long discussion held regarding short distance claudication and treatment options including continued medical mgmt vs angiogram w/ possible intervention vs bypass. Previously did not tolerate pletal Pt symptoms stable w/ no progression since last office visit. Will plan to continue w/ ongoing conservative medical mgmt, risk factor modification, and attempt activity (especially now that weather is warmer). If symptoms worsen, wounds, rest pain etc would then plan for angiogram w/ possible intervention. Surveillance plan: repeat CARLI/PVR in 6 mo to monitor for disease progression. Medical mgmt: Anti-platelet: ASA, plavix Statin: lipitor 40mg daily Return to clinic in 6 mo after CARLI/PVR completed to review results and discuss further plan of care. Pt to notify office immediately w/ any progressive symptoms, wounds, etc. SIGNATURE: Bina Griffin DO CC: MD Karyn PEREZ Marc, MD documented in this [facility] Telephone encounter Note* Telephone Encounter - Ambar Lux - 08/06/2024 9:36 AM EDT Spoke to [facility] imaging and they state they received approval this morning. They will reach out todayto get patient scheduled Ambar B PSS [facility] History of Present illness Narrative* Mildred Morillo RN - 08/03/2024 8:00 AM EDT Radiology Service Progress Note DATE OF SERVICE: August 03, 2024 TIME: 8:13 AM PATIENT IDENTITY VERIFICATION COMPLETED USING TWO (2) STANDARD IDENTIFIERS: Name and Date of confirmed by patient verbally. FALL SCREENING: Has the patient had 2 falls in the last year or 1 fall with injury or currently using an Ambulatory Assistive Device (Walker, Cane, Wheelchair, Crutches, etc.)? No PATIENT GENDER DATA: Assigned male at EXAM: CT -CONTRAST INDUCED NEPHROPATHY RISK FACTORS: Not applicable CREATININE: Creatinine Date Value Ref Range Status 07/20/2024 0.64 (L) 0.73 - 1.22 mg/dL Final 06/29/2024 0.79 0.73 - 1.22 mg/dL Final 06/15/2024 0.98 0.73 - 1.22 mg/dL Final Estimated Glomerular Filtration Rate Date Value Ref Range Status 07/20/2024 103 >=60 mL/min/1.73m Final Comment: Estimated Glomerular Filtration Rate (eGFR) is calculated using the 2020 CKD-EPI creatinine equation. This equation utilizes serum creatinine, sex, and age as parameters. The creatinine assay has traceable calibration to isotope dilution- mass spectrometry. Refer to KDIGO guidelines for clinical interpretation. In patients with unstable renal function, e.g. those with acute kidney injury, the eGFRmay not accurately reflect actual GFR. P.O.C.T. RESULTS: N/A August 03, 2024 TREATMENT: N/A IV SITE: Ambulatory: A peripheral IV was started in the Right forearm with a Angio cath: 22 gauge. IV SITE APPEARANCE: Clean,Dry and Intact SIGNATURE: Mildred Morillo RN PATIENT NAME: Erin Pena DATE: August 03, 2024 TIME: 8:13 AM * Noemy Schumacher RT(R) - 08/03/2024 8:00 AM EDT RADIOLOGY SERVICE PROGRESS NOTE SERVICE DATE: 08/03/2024 SERVICE TIME: 8:49 AM PATIENT IDENTITY VERIFICATION COMPLETED USING TWO (2) STANDARD IDENTIFIERS: Name and Date of confirmed by patient verbally POST EXAM PIV STATUS: Discontinued PROCEDURE TYPE: NM INJECT: PET/CT BODY SCAN. 9.9 mCi F18 FDG. Administered By: . No other medications given.. ADMINISTRATION TIME: 0806 PATIENT DISCHARGED TO: Ambulatory patient, left [place] department area. Is this a therapy: No A Diagnostic radioactive procedure has taken place, with no further precautions necessary other than routine body substance precautions. More information regarding radiation safety can be found usingthis link: [email or web address] SIGNATURE: RT Stephanie(R) PATIENT NAME: Erni Pena DATE: August 03, 2024 TIME: 8:49 AM PAGER/CONTACT #: documented in this encounterSelect Medical [facility]05-30-[facility] Note[facility] Note[facility]05-29-2025 Telephone encounter Note* Telephone Encounter - Brittni Morrell - 08/02/2024 9:08 AM EDT Order received at [facility], working on prior auth and will call patient. [facility]05-28-2025 Telephone encounter Note* Telephone Encounter - Brittni Morrell - 08/01/2024 3:20 PM EDT Faxed order to [facility] in [place] [facility]05-28-2025 Telephone encounter Note* Telephone Encounter - Noemy Chicas RN - 08/01/2024 2:43 PM EDT Pt notified and agrees to MRI. Clerical: Pt would like the MRI done at [facility] in [place]. Please schedule and call pt w/ the appointment. Thanks! Noemy Chicas RN [facility] Work Phone: [phone] Telephone encounter Note* Telephone Encounter - Arley King PA-C - 08/01/2024 2:26 PM EDT MRI of the brain would be needed to look at his pituitary gland to look for hypophysitis as well asadditional labs if this is immunotherapy related. Arley King PA-C [facility]05-28-2025 Telephone encounter Note* Telephone Encounter - Noemy Chicas RN - 08/01/2024 10:07 AM EDT ER work up showed no acute findings. CTA head and neck showed complete occlusion of the right internal carotid artery. This is unchanged from prior study. ER records can be viewed through Care Everywhere. Pt still c/o headache this morning. Dizzy at times when standing. Still c/o ongoing fatigue. Pt andspouse feel his symptoms related to the immunotherapy. Last treated w/ Opdivo on 07/20. Thyroid and cortisol were both normal at that time. Bobby/CRIS: What would you advise? Noemy Chicas RN [facility]05-28-2025 Telephone encounter Note* Telephone Encounter - Agata Briceño - 08/01/2024 9:46 AM EDT Patient went to [facility] ER. Labs and imaging pulled through care everywhere. ER note not available yet. [facility]05-27-2025 Telephone encounter Note* Telephone Encounter - Noemy Chicas RN - 07/31/2024 3:10 PM EDT Pt notified and verbalizes understanding. Recommended he go to [facility] ER, but pt would prefer to go to [facility] ER since it's closer to home. Report phoned to Ramu @ [facility] ER. Last office note, recent CT head, and med list faxed. Taryn: Please scan ER records when available. Thanks! Noemy Chicas RN [facility]05-27-2025 Telephone encounter Note* Telephone Encounter - Arley King PA-C - 07/31/2024 2:39 PM EDT My recommendation stands. Arley King PA-C [facility]05-27-2025 Telephone encounter Note* Telephone Encounter - Noemy Chicas RN - 07/31/2024 2:24 PM EDT Pt calls w/ c/o persistent headache and fatigue. Rates each one 6-7. Notes only a slight improvement since he called last week. Headache is tolerable w/ Tylenol and [place]. Pt denies dizziness or vision changes. It was advised last week per Arley that pt go to ER if his symptoms worsen due to his h/o recent fall and use of blood thinners. Advised pt to go to ER as originally recommended since his symptoms have only slightly improved. Pt questions why the need for ER. Explained our concerns of a slow brain bleed as noted per Arley. Pt reluctant to go. Asks if we could do a CT of the head when here for hisPET on Tuesday. Explained to pt that a bleed is an urgent matter that would require inpatient management. Pt verbalizes understanding and remains reluctant to go to ER. Bobby/CRIS: Any additional recommendations other than what was previously advised? Noemy Chicas RN [facility]05-17-2025 Telephone encounter Note* Telephone Encounter - Michelle Mejia APRN.CNP - 07/21/2024 11:38 AM EDT Note signed. Thanks. Michelle Mejia APRN.[employer] [facility]05-17-2025 Miscellaneous Notes* Telephone Encounter - Michelle Mejia APRN.CNP - 07/21/2024 11:38 AM EDT Note signed. Thanks. Michelle Mejia APRN.[employer] * Telephone Encounter - Evangelina Linton - 07/20/2024 2:26 PM EDT Taryn/Eduard: Patient is already established with her and needs to be seen back. Can you send recent notes and follow up? Thanks! Appointment with Dr. Robyn WHITTAKER - Skin lesion left ear Evangelina Linton documented in this encounterSelect Medical [facility]05-[facility]-2025 Telephone encounter Note * Telephone Encounter - Evangelina Linton - 07/20/2024 2:26 PM EDT Taryn/Eduard: Patient is already established with her and needs to be seen back. Can you send recent notes and follow up? Thanks! Appointment with Dr. Robyn WHITTAKER - Skin lesion left ear Evangelina Linton [facility]05-16-2025 History of Present illness Narrative* Mildred Morillo RN - 07/20/2024 2:15 PM EDT Radiology Service Progress Note DATE OF SERVICE: July 20, 2024 TIME: 2:45 PM PATIENT WEIGHT: 183LBS PATIENT IDENTITY VERIFICATION COMPLETED USING TWO (2) STANDARD IDENTIFIERS: Name and Date of confirmed by patient verbally. FALL SCREENING: Has the patient had 2 falls in the last year or 1 fall with injury or currently using an Ambulatory Assistive Device (Walker, Cane, Wheelchair, Crutches, etc.)? No PATIENT GENDER DATA: Assigned male at ALLERGIES: Reviewed and unchanged CONTRAST ALLERGY: No EXAM: CT -CONTRAST INDUCED NEPHROPATHY RISK FACTORS: Patient age > 60 years CREATININE: Creatinine Date Value Ref Range Status 07/20/2024 0.64 (L) 0.73 - 1.22 mg/dL Final 06/29/2024 0.79 0.73 - 1.22 mg/dL Final 06/15/2024 0.98 0.73 - 1.22 mg/dL Final Estimated Glomerular Filtration Rate Date Value Ref Range Status 07/20/2024 103 >=60 mL/min/1.73m Final Comment: Estimated Glomerular Filtration Rate (eGFR) is calculated using the 2020 CKD-EPI creatinine equation. This equation utilizes serum creatinine, sex, and age as parameters. The creatinine assay has traceable calibration to isotope dilution- mass spectrometry. Refer to KDIGO guidelines for clinical interpretation. In patients with unstable renal function, e.g. those with acute kidney injury, the eGFRmay not accurately reflect actual GFR. P.O.C.T. RESULTS: POC done: Yes, See Lab Tab July 20, 2024 TREATMENT: N/A IV SITE: Ambulatory: A peripheral IV was started in the Right hand with a Angio cath: 20 gauge. IV SITE APPEARANCE: Clean,Dry and Intact SIGNATURE: Mildred Morillo RN PATIENT NAME: Erin Pena DATE: July 20, 2024 TIME: 2:45 PM * Noemy Schumacher, RT(R) - 07/20/2024 2:15 PM EDT Radiology Service Progress Note PATIENT NAME: Erin Pena DATE OF SERVICE: July 20, 2024 TIME: 2:51 PM PATIENT IDENTITY VERIFICATION COMPLETED USING TWO (2) IDENTIFIERS: Name and Date of confirmedby patient verbally. FALL SCREENING: Has the patient had 2 falls in the last year or 1 fall with injury or currently using an Ambulatory Assistive Device (Walker, Cane, Wheelchair, Crutches, etc.)? No PATIENT GENDER DATA: Assigned male at PATIENT RELEVANT IMPLANT DATA REVIEWED: Not Applicable PATIENT PRESENTS WITH AN IMPLANTABLE OR ATTACHED UNEMPLOYMENT BENEFITS CLAIMS TAKER: No RADIOLOGY DEPARTMENT: CT; Exam(s) Completed: Brain PERIPHERAL IV DATA: Site assessment: Clean,Dry and Intact, Site disposition Discontinued SIGNED BY: RT Stephanie(R) July 20, 2024 2:51 PM documented in this encounterSelect Medical [facility]05-16-[facility] NoteSt[facility]05-16-[facility] NoteSt[facility]05-16-[address] NoteSt[facility]05-16-2025 History of Present illness Narrative* Michelle Mejia APRN.[employer] - 07/20/2024 1:49 PM EDT Images from the original note were not included. NAME: Erin Pena [facility] NO.: [id number] DATE OF SERVICE: July 20, 2024 (Lenny) Some elements in this clinic note that are critical to medical decision making have been carefully reviewed and included from a prior clinic note dated: June 15, 2024 (Lenny) Referring Provider: Gerald Abdi MD Additional Clinicians involved in Erin Pena's care: Dr. 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 Bronchoscopy - mediastinal and hilar LN's negative. LLL bx + Squamous cell carcinoma. Completed neoadjuvant chemo / IO late December 2023. Unfortunately does not appear to be a good candidate for surgery and is exploring SBRT vs. Chemo/RT followed by immunotherapy. Overall he has had apretty good response to date. (February 24, 2024 ). He completed SBRT and was started on maintenance I/O. PLAN: Cycle 3 single agent nivolumab today RTC in 4 weeks for C4 Labs same day Continue Ritalin 10mg BID, as needed Continue potassium [address] brain today (Recent fall; History of possible stroke) Will arrange for restaging PET scan prior to next visit (Plan is to repeat 6-8 weeks after radiation) Continue aspirin and Plavix as prescribed by neurology. Follow-up with neurologist as scheduled Refer back to dermatology for right ear lesion HPI: CASE HISTORY: Reverse Chronological Order 05/18/2024 - C1 single agent nivolumab 05/02/2024-05/11/2024 - Radiation to chest per Dr. Hoang 04/03/2024 - PET/CT: CHEST: Decreased FDG avid left lower lobe malignant mass, residual small opacity with mild uptake HEAD/NECK, ABDOMEN/PELVIS, MUSCULOSKELETAL: No FDG avid disease. 01/25/2024 - CT CAP: Chest: Decreased size of the left lower lobe mass. No new suspicious appearing pulmonary nodules orthoracic lymphadenopathy. A/P: No metastatic disease in the abdomen or pelvis. 11/16/2023-12/28/2023 - 3 cycles of Carbo/Taxol + Nivo q 3 weeks (C2 & 3: Decrease Taxol to 175and Carbo AUC to 5) 11/01/2023 - Bronchoscopy: with Dr. Craig Cytology: 5 lymph nodes: Negative for malignant cells. Benign lymphoid sample 10/21/2023 - PET/CT: Abnormal uptake confined to the left upper lobe mass without evidence for metastatic disease. 10/05/2023 - Lung, left lower lobe, core biopsy: at [facility] - Invasive squamous cell carcinoma Comment: In order to classify the neoplasm, immunohistochemical staining is performed on 1B and demonstrates that the tumor cells are diffusely positive for AE1/AE3 and p40, and negative for TTF-1 and Napsin A with adequate controls, supporting the above diagnosis 09/28/2023 - CT Chest: 5.2 cm left upper lobe mass with satellite nodule, concerning for malignancy. Focal necrotizing pneumonia felt less likely but could appear similarly in the appropriate clinical setting. 09/28/2023 - MRI Brain: No acute intracranial findings. 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 09/27/2023 - CTA Neck: Partially visualized lobulated left lower lobe pulmonary mass measuring up to 4.8 cm highly concerning for malignancy. Complete CT chest examination recommended for further evaluation. 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 Mild (less than 50%) luminal narrowing of the proximal left internal carotid artery. 09/27/2023-09/29/2023 - Admitted at [facility] with left sided weakness, slurred speech - stroke workup negative 09/25/2023 - ER for bilateral leg weakness Updated Visit, July 20, 2024: Erin Pena returns for scheduled follow-up. He remains on single agent nivolumab every 4 weeksand is tolerating well. He and his recently were on a trip to his country and he passed out. He reports that he lost consciousness for a few seconds. At that time he did not seek medical attention. He is unsure what was the cause of passing out. He denies any obvious injuries. He currently denies headaches and vision changes. He is scheduled to see his neurologist in August. He is drinking plenty of fluids. He remains on aspirin and Plavix. He denies any bleeding or abnormal bruising. His breathing is unchanged. He denies fevers, chills, night sweats and signs/symptoms of infection. Overall, he is doing well. Patient has noticed a skin lesion to his right upper ear. He has seen dermatology in the past. Updated Visit, June 15, 2024: Erin Pena returns for scheduled follow-up. He received cycle 1 nivolumab on 05/18/2024 and tolerated it well. He does not feel well the day after his treatment. He complains of a dry mouth and has been trying eswp-utm-gqoqlud products for the dry mouth. He had had some chest and rib pain afterdoing yard work. He states that he overdid it . He denies any skin rash. He has some skin burning to his shins and also states that he has had vascular issues to his lower legs. He has been applyingextra lotion for the dryness. He denies diarrhea. No abdominal pain. He actually had an episode of constipation which was eventually resolved with maii-kmi-abfvwuo medications. He has had no headaches. He denies blurred vision. He has had floaters and has seen the eye doctor several times. It was determined likely cause to be from age. He denies fevers, chills, night sweats and signs/symptoms of infection. No bleeding or abnormal bruising. Updated Visit, May 18, 2024: Sergio returns with Mandy for a follow up. He completed his course of radiation. Endorses a cough and a burning sensation as a result of treatment. He is in agreement to resume nivolumab only today, reviewed warning signs of pneumonitis. Discussed the plan for 2 years of immunotherapy as he did not have resection. He also mentions redness on his thighs - will continue to monitor. Updated Visit, April 11, 2024: Sergio returns with Mandy for a follow up. Recent PET/CT shows continued response. He is scheduled to start a short course of radiation with Dr. Hoang. Will plan to start singe agent nivolumab following radiation. Updated Visit, February 24, 2024: Sergio returns with Mandy for a follow up. He has met with Dr. Oreilly to consider surgery - patient reports he may not be a candidate for surgery at this time. He is undergoing pulmonary testing and received a referral to radiation. If surgery he not safe for him, radiation would be a sufficient treatment option. Following his NM lung perfusion scan on 02/17/2024, he developed fatigue and generalized body aches. He has sharp pains in his heels when waking up in the morning, more recently the painspread to his toes. 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 CBC is normal, potassium remains low - I recommended he start a supplement. Updated Visit, December 28, 2023: Sergio and his , Mandy, return for his third and final planned cycle of Carbo/Taxol + Nivo. He complains of worsening dyspnea on exertion and productive coughing. He has gained weight recently - admits he is eating more now that he has stopped smoking. Lungs sound clear in all four quadrants. Worsening anemia and weight gain may be the cause of dyspnea. It is unlikely he has pneumonitis given his symptoms but advised him to contact the office dyspnea continues. He also endorses irritability which he feels is due to gabapentin - will discontinue. He has been prescribed Ritalin in the past to manage mood disorders - will send a new prescription. 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 He has not been diagnosed with diabetes although will be seeing his PCP soon to consider treatment for pre-diabetes. They are going to a football game in [place] around [facility], will complete CT CAP and surgery when he returns from his trip. Updated Visit, December 07, 2023: Sergio returns with Mandy for treatment. He endorses feeling like he was hit by a truck starting on the third day following treatment. He experiences nausea, vomiting, and acid reflux at night. I recommended he sleep with his head elevated and start his antiemetics today. He is treating neuropathywith gabapentin, is improving now. I will reduce his chemotherapy dose to manage toxicity. He has lost his hair due to treatment. Updated Visit, November 16, 2023: Sergio returns with Mandy to begin Carbo/Taxol + Nivo. He underwent a bronchoscopy on 10/31 - negative for rowena involvement. Plan for 3 cycles of treatment prior to resection. He is slightly anemic today, will check iron studies on Day 10 with david counts. Initial Visit, October 21, 2023: Erin Pena presents today for a Hematology and Oncology evaluation and second opinion.He is joined by his , Mandy. 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 He completed a PET/CT this morning which shows confined uptake in the left lung without metastatic disease. I recommended chemo+immuno treatment followed by surgery once staging studies are completed. He will also need PFTs to give predictive capacity following a potential resection. He is in agreement to start after staging is complete. Will refer him to Drs. Craig and Afia forsurgical evaluation. 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 Erin's tewduce-uf-zxg is Arie Baker, who is my patient also. REVIEW OF SYSTEMS Per HPI and otherwise negative by full review of organ systems. ECOG PERFORMANCE STATUS: 1 PHYSICAL EXAMINATION: Vitals: BP 152/76 Pulse 68 Temp (Src) 97.1 (Temporal) Resp 18 Wt 183 lb 10.3 oz (83.3kg) SpO2 97% Body surface area is 1.96 meters squared. Exam limited to gross visualization where appropriate. Gen.: This is an age-appropriate patient in no acute distress. Head: Appears atraumatic with no visible lesions. Eyes: Pupils equally round and reactive to light, extraocular muscles are intact. Neck: Supple. Respiratory: Appears to be respiring comfortably. Neurologic: Nonfocal to gross visualization. Alert and oriented 3. Psychiatric: No evidence of inappropriate anxiety or depression. Skin: Visible areas of skin without rash, lesions, wounds or petechiae. ALLERGIES: ALLERGIES Allergen Reactions Sulfa (Sulfonamide * Unknown Unkown, was a child Gabapentin Intolerance Causes Altered mental Status MEDICATIONS: fexofenadine HCl (ITZEL ORAL) Take 180 mg by mouth. amLODIPine (NORVASC) 10 mg tablet Take 10 mg by mouth once daily. methylphenidate (RITALIN) 10 mg tablet Take 1 tablet by mouth two times a day for 30 days. potassium chloride ER (KLOR-CON) 20 mEq tablet Take 1 tablet by mouth once daily. Take 1 tablet by mouth twice daily x3 days then take 1 tablet by mouth daily pregabalin (LYRICA) 75 mg capsule Take 1 capsule by mouth two times a day for 30 days. traZODone (DESYREL) 100 mg tablet Take 1 tablet by mouth daily at bedtime. MELOXICAM ORAL Take by mouth. clopidogrel (PLAVIX) 75 mg tablet Take 75 mg by mouth once daily. Nicotine Polacrilex (NICORETTE) [address] 4 mg between cheek and gum as needed. albuterol HFA (PROVENTIL HFA, VENTOLIN HFA) 90 mcg/actuation inhaler Inhale 2 Puffs as instructed every 6 hours as needed. propranolol (INDERAL) 20 mg tablet TAKE 1 TABLET BY MOUTH NEEDED FOR ANXIETY ATTACKS ONCE A DAY terazosin (HYTRIN) 1 mg capsule Take 1 mg by mouth daily at bedtime. metFORMIN (GLUCOPHAGE) 850 mg tablet Take 850 mg by mouth daily with breakfast. krill oil 500 mg cap Take 1 capsule by mouth once daily. Glucosamine HCl 500 mg tab Take 1 tablet by mouth once daily. atorvastatin (LIPITOR) 40 mg tablet Take 40 mg by mouth once daily. aspirin, enteric coated (ASPIRIN, ENTERIC COATED) 81 mg EC tablet Take 81 mg by mouth once daily. levothyroxine (SYNTHROID) 175 mcg tablet Take 175 mcg by mouth daily before breakfast. ascorbic acid (VITAMIN C) 500 mg tablet Take 500 mg by mouth once daily. multivitamin tablet Take 1 tablet by mouth once daily. Cetirizine 10 mg cap Take 10 mg by mouth once daily. losartan (COZAAR) 100 mg tablet Take 100 mg by mouth once daily. hydroCHLOROthiazide 50 mg tablet Take 50 mg by mouth once daily. LABORATORY VALUES: WBC (k/uL) Date Value 07/20/2024 9.67 RBC (m/uL) Date Value 07/20/2024 3.83 (L) Hemoglobin (g/dL) Date Value 07/20/2024 11.4 (L) Hematocrit (%) Date Value 07/20/2024 33.5 (L) MCV (fL) Date Value 07/20/2024 87.5 MCH (pg) Date Value 07/20/2024 29.8 MCHC (g/dL) Date Value 07/20/2024 34.0 RDW-CV (%) Date Value 07/20/2024 14.2 Platelet Count (k/uL) Date Value 07/20/2024 292 MPV (fL) Date Value 07/20/2024 9.1 Glucose (mg/dL) Date Value 07/20/2024 158 (H) BUN (mg/dL) Date Value 07/20/2024 10 Creatinine (mg/dL) Date Value 07/20/2024 0.64 (L) Sodium (mmol/L) Date Value 07/20/2024 143 Potassium (mmol/L) Date Value 07/20/2024 3.7 Chloride (mmol/L) Date Value 07/20/2024 104 CO2 (mmol/L) Date Value 07/20/2024 28 Protein, Total (g/dL) Date Value 07/20/2024 6.8 Albumin (g/dL) Date Value 07/20/2024 4.4 Calcium, Total (mg/dL) Date Value 07/20/2024 9.4 Alkaline Phosphatase (U/L) Date Value 07/20/2024 96 Bilirubin, Total (mg/dL) Date Value 07/20/2024 0.3 AST (U/L) Date Value 07/20/2024 16 ALT (U/L) Date Value 07/20/2024 15 DIAGNOSIS: (R55) Syncope and collapse (primary encounter diagnosis) Plan: NM PET/CT SKULL-THIGH SUBSEQUENT, CT BRAIN WO/W IVCON (C34.12) Malignant neoplasm of upper lobe of left lung (HCC) Plan: NM PET/CT SKULL-THIGH SUBSEQUENT PAST MEDICAL HISTORY Diagnosis Date Chronic obstructive pulmonary disease (HCC) 10/20/2023 Hypertension Hypothyroidism Lung cancer (HCC) 2023 refBy [place] Other affections of shoulder region, not elsewhere classified 03/14/2012 PAST SURGICAL HISTORY Procedure Laterality Date APPENDECTOMY BRAIN SURGERY HX COLONSCOPY SCREENING HIGH RISK FINGER AMPUTATION (SPECIFY DIGIT) HX HAND SURGERY HX HEMORROIDECTOMY INTERNAL LUNG BIOPSY Left NECK SURGERY HX PAST SURGICAL HISTORY OF Heart cath REMV CATARACT EXTRACAP,INSERT LENS S KIT CRAINIOTOMY [id number] SHOULDER ARTHROSCOPY/SURG TYMPANOSTOMY GENERAL ANESTHESIA XR CERVICAL FUSION OR C4 fusion Social History Tobacco Use Smoking status: Former Current packs/day: 0.00 Average packs/day: 0.5 packs/day for 50.0 years (25.0 ttl pk-yrs) Types: Cigarettes Start date: 09/22/1973 Quit date: 09/23/2023 Years since quittin.8 Passive exposure: Current Smokeless tobacco: Never Tobacco comments: Quit September 26 Vaping Use Vaping status: Former Substance Use Topics Alcohol use: No Drug use: No FAMILY HISTORY Problem Relation Age of Onset Stroke Mother Cancer Mother Heart disease Father Hypertension Father Stroke Paternal Grandmother Anesthesia Problems No Family History I spent a total of 40 minutes on the date of the service which included preparing to see the patient, beyi-[id number] patient care, completing clinical documentation, obtaining and/or reviewing separately obtained history, performing a medically appropriate examination, counseling and educating the pat ient/family/caregiver, ordering medications, tests, or procedures, independently interpreting results (not separately reported), and communicating results to the patient/family/caregiver. Michelle Mejia APRN.[employer] Hematology and Oncology Services Provided at: [place], [place] CC: Gerald Abdi [address] [address] Basia Vega MD [address] [facility] [id number] Savanah Oreilly MD documented in this encounterSelect Medical [place] [facility] Telephone encounter Note * Telephone Encounter - Noemy Chicas RN - 07/09/2024 11:27 AM EDT Patient phones requesting refills as follows: Last written on 05/18/[address] Hancock. Requested Prescriptions Pending Prescriptions Disp Refills methylphenidate (RITALIN) 10 mg tablet 60 tablet 0 Sig: Take 1 tablet by mouth two times a day for 30 days. Please review and advise. Noemy Chicas RN [facility] [place] [facility]05-05-2025 Miscellaneous Notes* Telephone Encounter - Noemy Chicas RN - 07/09/2024 11:27 AM EDT Patient phones requesting refills as follows: Last written on 05/18/[address] Hancock. Requested Prescriptions Pending Prescriptions Disp Refills methylphenidate (RITALIN) 10 mg tablet 60 tablet 0 Sig: Take 1 tablet by mouth two times a day for 30 days. Please review and advise. Noemy Chicas RN documented in this encounterSelect Medical [place] [facility]04-[facility] Note[facility]04-[facility] History of Present illness Narrative* Jack Hoang MD - 06/15/2024 11:51 PM EDT Radiation Oncology - Follow Up Note PATIENT NAME: Erin Pena PATIENT DIAGNOSIS/PATIENT IDENTIFICATION: Mr. Pena is a 68-year-old gentleman recently diagnosed with anearly stage, [id number], non-small cell lung cancer (SCC) arising in the left lower lobe lung status post biopsy of the lung mass on 10/05/2023. Pathologic staging of the mediastinum on 11/01/2023 was negative. Staging workup with MRI of the brain and PET/CT noted FDG avidity in the approximately 5 cm left upper lobe lung mass with no other areas concerning for disease. He met with Dr. Hancock and Dr. Oreilly and opted to proceed to preoperative systemic therapy followed by surgical resection. He completed his preoperative systemic therapy consisting of 3 cycles of carboplatin Taxol and nivolumab between 11/16/2023 and 12/28/2023. Repeat imaging with CT chest abdomen pelvis from 01/25/2024 notes decrease in size of the left lower lobe lung mass with no new areas concerning for disease progression. He declined surgical resection and proceeded to SBRT to the left chest which he completed on 07/2024 (6000 cGy delivered in 5 fractions). Mr. Pena returns to clinic today for routine follow-up approximately six weeks after the completion of his radiation treatments. In the interim, well and notes dyspnea on exertion with no substantial cough and denies any hemoptysis or chest pain or difficulty swallowing or skin irritation in thetreatment area. He does continue on systemic therapy with nivolumab which he is tolerating well. Hedoes note some fatigue with stable appetite and hydration stable weight. I will plan to see him back in approximately 2 to 3 months after his initial posttreatment imaging. The patient is aware to contact the clinic in the interim should any questions or concerns arise. Thank you for allowing us toparticipate in the care of this patient. Signed by: Jack Hoang MD This document has been created with the use of voice recognition technology. It may contain inaccuracies, misspellings, inaccurate syntax or inappropriate word context that are a result of the inadequacies/shortcomings of said technology/software. documented in this encounterSelect Medical [place] [facility]04-11-2025 Instructions* Patient Instructions* Joey Scott APRN.CNP - 06/15/2024 2:42 PM EDT Joey Scott CNP Department of Palliative and Supportive Care Palliative Care - Specialty services in symptom management and support For questions or prescription refills, call: [phone] Tuesday - Tuesday 9AM-5PM KRISTINA Alba, RN - Data Integrity Analyst Please call 3-5 days in advance for medication refills Evenings, Weekends, Holidays: [phone] (ask for palliative medicine on-call provider) For appointments, cancellations or reschedule, call: [phone] documented in this encounterSelect Medical [place] [facility]04-11-2025 Note[facility]04-11-2025 History of Present illness Narrative* Michelle Mejia APRN.CNP - 06/15/2024 1:11 PM EDT Images from the original note were not included. NAME: Erin Pena [facility] NO.: [id number] DATE OF SERVICE: June 15, 2024 (Lenny) Some elements in this clinic note that are critical to medical decision making have been carefully reviewed and included from a prior clinic note dated: May 18, 2024 (Khadijah) Referring Provider: Gerald Abdi MD Additional Clinicians involved in Erin Pena's care: Dr. 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 Bronchoscopy - mediastinal and hilar LN's negative. LLL bx + Squamous cell carcinoma. Completed neoadjuvant chemo / IO late December 2023. Unfortunately does not appear to be a good candidate for surgery and is exploring SBRT vs. Chemo/RT followed by immunotherapy. Overall he has had apretty good response to date. (February 24, 2024 ). Once he completes SBRT, he will be able to start on maintenance I/O. PLAN: Cycle 2 single agent nivolumab today RTC in 4 weeks for C3 Labs same day Continue Ritalin 10mg BID, as needed Will start potassium 20 mEq twice daily x 3 days then continue potassium 20 mEq daily Will check magnesium level today Repeat CMP in 1 week HPI: CASE HISTORY: Reverse Chronological Order 05/18/2024 - C1 single agent nivolumab 05/02/2024-05/11/2024 - Radiation to chest per Dr. Hoang 04/03/2024 - PET/CT: CHEST: Decreased FDG avid left lower lobe malignant mass, residual small opacity with mild uptake HEAD/NECK, ABDOMEN/PELVIS, MUSCULOSKELETAL: No FDG avid disease. 01/25/2024 - CT CAP: Chest: Decreased size of the left lower lobe mass. No new suspicious appearing pulmonary nodules orthoracic lymphadenopathy. A/P: No metastatic disease in the abdomen or pelvis. 11/16/2023-12/28/2023 - 3 cycles of Carbo/Taxol + Nivo q 3 weeks (C2 & 3: Decrease Taxol to 175and Carbo AUC to 5) 11/01/2023 - Bronchoscopy: with Dr. Craig Cytology: 5 lymph nodes: Negative for malignant cells. Benign lymphoid sample 10/21/2023 - PET/CT: Abnormal uptake confined to the left upper lobe mass without evidence for metastatic disease. 10/05/2023 - Lung, left lower lobe, core biopsy: at [facility] - Invasive squamous cell carcinoma Comment: In order to classify the neoplasm, immunohistochemical staining is performed on 1B and demonstrates that the tumor cells are diffusely positive for AE1/AE3 and p40, and negative for TTF-1 and Napsin A with adequate controls, supporting the above diagnosis 09/28/2023 - CT Chest: 5.2 cm left upper lobe mass with satellite nodule, concerning for malignancy. Focal necrotizing pneumonia felt less likely but could appear similarly in the appropriate clinical setting. 09/28/2023 - MRI Brain: No acute intracranial findings. 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 09/27/2023 - CTA Neck: Partially visualized lobulated left lower lobe pulmonary mass measuring up to 4.8 cm highly concerning for malignancy. Complete CT chest examination recommended for further evaluation. 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 Mild (less than 50%) luminal narrowing of the proximal left internal carotid artery. 09/27/2023-09/29/2023 - Admitted at [facility] with left sided weakness, slurred speech - stroke workup negative 09/25/2023 - ER for bilateral leg weakness Updated Visit, June 15, 2024: Erin Erickson Enrike returns for scheduled follow-up. He received cycle 1 nivolumab on 05/18/2024 and tolerated it well. He does not feel well the day after his treatment. He complains of a dry mouth and has been trying htmp-azl-rkwndei products for the dry mouth. He had had some chest and rib pain afterdoing yard work. He states that he overdid it . He denies any skin rash. He has some skin burning to his shins and also states that he has had vascular issues to his lower legs. He has been applyingextra lotion for the dryness. He denies diarrhea. No abdominal pain. He actually had an episode of constipation which was eventually resolved with wuar-iec-orpzqen medications. He has had no headaches. He denies blurred vision. He has had floaters and has seen the eye doctor several times. It was determined likely cause to be from age. He denies fevers, chills, night sweats and signs/symptoms of infection. No bleeding or abnormal bruising. Updated Visit, May 18, 2024: Sergio returns with Mandy for a follow up. He completed his course of radiation. Endorses a cough and a burning sensation as a result of treatment. He is in agreement to resume nivolumab only today, reviewed warning signs of pneumonitis. Discussed the plan for 2 years of immunotherapy as he did not have resection. He also mentions redness on his thighs - will continue to monitor. Updated Visit, April 11, 2024: Sergio returns with Mandy for a follow up. Recent PET/CT shows continued response. He is scheduled to start a short course of radiation with Dr. Hoang. Will plan to start singe agent nivolumab following radiation. Updated Visit, February 24, 2024: Sergio returns with Mandy for a follow up. He has met with Dr. Oreilly to consider surgery - patient reports he may not be a candidate for surgery at this time. He is undergoing pulmonary testing and received a referral to radiation. If surgery he not safe for him, radiation would be a sufficient treatment option. Following his NM lung perfusion scan on 02/17/2024, he developed fatigue and generalized body aches. He has sharp pains in his heels when waking up in the morning, more recently the painspread to his toes. 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 CBC is normal, potassium remains low - I recommended he start a supplement. Updated Visit, December 28, 2023: Sergio and his , Mandy, return for his third and final planned cycle of Carbo/Taxol + Nivo. He complains of worsening dyspnea on exertion and productive coughing. He has gained weight recently - admits he is eating more now that he has stopped smoking. Lungs sound clear in all four quadrants. Worsening anemia and weight gain may be the cause of dyspnea. It is unlikely he has pneumonitis given his symptoms but advised him to contact the office dyspnea continues. He also endorses irritability which he feels is due to gabapentin - will discontinue. He has been prescribed Ritalin in the past to manage mood disorders - will send a new prescription. 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 He has not been diagnosed with diabetes although will be seeing his PCP soon to consider treatment for pre-diabetes. They are going to a football game in [place] around [facility], will complete CT CAP and surgery when he returns from his trip. Updated Visit, December 07, 2023: Sergio returns with Mandy for treatment. He endorses feeling like he was hit by a truck starting on the third day following treatment. He experiences nausea, vomiting, and acid reflux at night. I recommended he sleep with his head elevated and start his antiemetics today. He is treating neuropathywith gabapentin, is improving now. I will reduce his chemotherapy dose to manage toxicity. He has lost his hair due to treatment. Updated Visit, November 16, 2023: Sergio returns with Mandy to begin Carbo/Taxol + Nivo. He underwent a bronchoscopy on 10/31 - negative for rowena involvement. Plan for 3 cycles of treatment prior to resection. He is slightly anemic today, will check iron studies on Day 10 with david counts. Initial Visit, October 21, 2023: Erin Pena presents today for a Hematology and Oncology evaluation and second opinion.He is joined by his , Mandy. 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 He completed a PET/CT this morning which shows confined uptake in the left lung without metastatic disease. I recommended chemo+immuno treatment followed by surgery once staging studies are completed. He will also need PFTs to give predictive capacity following a potential resection. He is in agreement to start after staging is complete. Will refer him to Drs. Craig and Afia forsurgical evaluation. 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 Erin's [id number] is Arie Baker, who is my patient also. REVIEW OF SYSTEMS Per HPI and otherwise negative by full review of organ systems. ECOG PERFORMANCE STATUS: 1 PHYSICAL EXAMINATION: Vitals: BP 119/57 Pulse 66 Temp (Src) 97.6 (Temporal) Resp 16 Ht 5' 5.551 (1.67m) Wt 183lb 6.8 oz (83.2kg) SpO2 97% BMI 30.01 kg/(m^2). Body surface area is 1.96 meters squared. Exam limited to gross visualization where appropriate. Gen.: This is an age-appropriate patient in no acute distress. Head: Appears atraumatic with no visible lesions. Eyes: Pupils equally round and reactive to light, extraocular muscles are intact. Neck: Supple. Respiratory: Appears to be respiring comfortably. Neurologic: Nonfocal to gross visualization. Alert and oriented 3. Psychiatric: No evidence of inappropriate anxiety or depression. Skin: Visible areas of skin without rash, lesions, wounds or petechiae. ALLERGIES: ALLERGIES Allergen Reactions Sulfa (Sulfonamide * Unknown Unkown, was a child Gabapentin Intolerance Causes Altered mental Status MEDICATIONS: methylphenidate (RITALIN) 10 mg tablet Take 1 tablet by mouth two times a day for 30 days. traZODone (DESYREL) 100 mg tablet Take 1 tablet by mouth daily at bedtime. MELOXICAM ORAL Take by mouth. pregabalin (LYRICA) 75 mg capsule Take 75 mg by mouth once daily. clopidogrel (PLAVIX) 75 mg tablet Take 75 mg by mouth once daily. Nicotine Polacrilex (NICORETTE) [address] 4 mg between cheek and gum as needed. Cetirizine 10 mg cap Take 10 mg by mouth once daily. albuterol HFA (PROVENTIL HFA, VENTOLIN HFA) 90 mcg/actuation inhaler Inhale 2 Puffs as instructed every 6 hours as needed. propranolol (INDERAL) 20 mg tablet TAKE 1 TABLET BY MOUTH NEEDED FOR ANXIETY ATTACKS ONCE A DAY terazosin (HYTRIN) 1 mg capsule Take 1 mg by mouth daily at bedtime. metFORMIN (GLUCOPHAGE) 850 mg tablet Take 850 mg by mouth daily with breakfast. losartan (COZAAR) 100 mg tablet Take 100 mg by mouth once daily. krill oil 500 mg cap Take 1 capsule by mouth once daily. hydroCHLOROthiazide 50 mg tablet Take 50 mg by mouth once daily. Glucosamine HCl 500 mg tab Take 1 tablet by mouth once daily. atorvastatin (LIPITOR) 40 mg tablet Take 40 mg by mouth once daily. aspirin, enteric coated (ASPIRIN, ENTERIC COATED) 81 mg EC tablet Take 81 mg by mouth once daily. levothyroxine (SYNTHROID) 175 mcg tablet Take 175 mcg by mouth daily before breakfast. ascorbic acid (VITAMIN C) 500 mg tablet Take 500 mg by mouth once daily. multivitamin tablet Take 1 tablet by mouth once daily. LABORATORY VALUES: WBC (k/uL) Date Value 06/15/2024 7.65 RBC (m/uL) Date Value 06/15/2024 4.05 (L) Hemoglobin (g/dL) Date Value 06/15/2024 11.9 (L) Hematocrit (%) Date Value 06/15/2024 35.6 (L) MCV (fL) Date Value 06/15/2024 87.9 MCH (pg) Date Value 06/15/2024 29.4 MCHC (g/dL) Date Value 06/15/2024 33.4 RDW-CV (%) Date Value 06/15/2024 14.6 Platelet Count (k/uL) Date Value 06/15/2024 235 MPV (fL) Date Value 06/15/2024 9.6 Glucose (mg/dL) Date Value 05/18/2024 143 (H) BUN (mg/dL) Date Value 05/18/2024 15 Creatinine (mg/dL) Date Value 05/18/2024 0.74 Sodium (mmol/L) Date Value 05/18/2024 137 Potassium (mmol/L) Date Value 05/18/2024 3.2 (L) Chloride (mmol/L) Date Value 05/18/2024 94 (L) CO2 (mmol/L) Date Value 05/18/2024 32 (H) Protein, Total (g/dL) Date Value 05/18/2024 6.4 Albumin (g/dL) Date Value 05/18/2024 4.5 Calcium, Total (mg/dL) Date Value 05/18/2024 9.4 Alkaline Phosphatase (U/L) Date Value 05/18/2024 67 Bilirubin, Total (mg/dL) Date Value 05/18/2024 0.4 AST (U/L) Date Value 05/18/2024 25 ALT (U/L) Date Value 05/18/2024 24 DIAGNOSIS: No diagnosis found. PAST MEDICAL HISTORY Diagnosis Date Chronic obstructive pulmonary disease (HCC) 10/20/2023 Hypertension Hypothyroidism Lung cancer (HCC) 2023 refBy [place] Other affections of shoulder region, not elsewhere classified 03/14/2012 PAST SURGICAL HISTORY Procedure Laterality Date APPENDECTOMY BRAIN SURGERY HX COLONSCOPY SCREENING HIGH RISK FINGER AMPUTATION (SPECIFY DIGIT) HX HAND SURGERY HX HEMORROIDECTOMY INTERNAL LUNG BIOPSY Left NECK SURGERY HX PAST SURGICAL HISTORY OF Heart cath REMV CATARACT EXTRACAP,INSERT LENS S KIT CRAINIOTOMY [id number] SHOULDER ARTHROSCOPY/SURG TYMPANOSTOMY GENERAL ANESTHESIA XR CERVICAL FUSION OR C4 fusion Social History Tobacco Use Smoking status: Former Current packs/day: 0.00 Average packs/day: 0.5 packs/day for 50.0 years (25.0 ttl pk-yrs) Types: Cigarettes Start date: 09/22/1973 Quit date: 09/23/2023 Years since quittin.7 Passive exposure: Current Smokeless tobacco: Never Tobacco comments: Quit September 26 Vaping Use Vaping status: Former Substance Use Topics Alcohol use: No Drug use: No FAMILY HISTORY Problem Relation Age of Onset Stroke Mother Cancer Mother Heart disease Father Hypertension Father Stroke Paternal Grandmother Anesthesia Problems No Family History I spent a total of 30 minutes on the date of the service which included preparing to see the patient, [id number] patient care, completing clinical documentation, obtaining and/or reviewing separately obtained history, performing a medically appropriate examination, counseling and educating the pat ient/family/caregiver, ordering medications, tests, or procedures, independently interpreting results (not separately reported), and communicating results to the patient/family/caregiver. Michelle Mejia APRN.CNP Hematology and Oncology Services Provided at: [place], [place] CC: Gerald Abdi [address] [address] Basia Vega MD [address] [facility] [id number] Savanah Oreilly MD documented in this encounterSelect Medical [place] [facility] Note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 Comleted neoadjuvant chemo / IO late December 2023. Unfortunately does not appear to be a good candidate for surgery. Now on maintenance therapy Subjective I met with Sergio and his in clinic, he is alert oriented x 3 no acute distress. Long-term chronic pain patient managed by his PCP, continues Lyrica and [place], pain has increased some since starting chemotherapy but it is still managed to his satisfaction with current medication regimen and he would like to stay with his primary care to control his pain. Appetite is good, in fact he has gained weight, no edema or increased shortness of breath. No constipation or diarrhea. Positive intermittent nausea controlled with Zofran Uses Ritalin sparingly, provided by oncology Modified ESAS ([place] Symptom Assessment Scale) Information Provided By: Patient and Family member Pain: Mild Nausea: None Loss of Appetite: None Constipation: None Shortness of Breath: None Drowsiness: None Tiredness: Mild Depression: None Anxiety: None Objective ECOG PERFORMANCE STATUS: 1- Restricted in physically strenuous activity. Carries out light duty. PHYSICAL EXAMINATION: Vital signs: There were no vitals taken for this visit. Last 1 Encounter Temp Readings: Date: Temp: Temp Src: 05/18/2024 36.2 C (97.1 F) Temporal Last 1 Encounter Resp Readings: Date: Resp: 05/18/2024 16 Last 1 Encounter Pulse Readings: Date: Pulse: 05/18/2024 65 Last 1 Encounter BP Readings: Date: BP: 05/18/2024 133/54 Physical Exam Constitutional: Appearance: He is well-groomed. HENT: Head: Normocephalic and atraumatic. Jaw: There is normal jaw occlusion. Right Ear: Hearing and external ear normal. Left Ear: Hearing and external ear normal. Nose: Nose normal. Mouth/Throat: Lips: [place]. Mouth: Mucous membranes are moist. No oral lesions. Eyes: General: Lids are normal. Gaze aligned appropriately. Extraocular Movements: Extraocular movements intact. Conjunctiva/sclera: Conjunctivae normal. Neck: Thyroid: No thyroid mass. Pulmonary: Effort: Pulmonary effort is normal. Musculoskeletal: General: No swelling, tenderness or deformity. Normal range of motion. Right shoulder: Normal. Left shoulder: Normal. Right upper arm: Normal. Left upper arm: Normal. Cervical back: Full passive range of motion without pain. Right lower leg: No edema. Left lower leg: No edema. Skin: General: Skin is warm and dry. Capillary Refill: Capillary refill takes less than 2 seconds. Findings: No rash. Neurological: General: No focal deficit present. Mental Status: He is alert and oriented to person, place, and time. Psychiatric: Attention and Perception: Attention normal. Mood and Affect: Mood normal. Speech: Speech normal. Behavior: Behavior normal. Behavior is cooperative. Thought Content: Thought content normal. Cognition and Memory: Cognition and memory normal. Judgment: Judgment normal. DATA: Diagnostic tests reviewed for today's visit: Most recent labs and imaging results. Estimated Creatinine Clearance: 95.3 mL/min (based on SCr of 0.74 mg/dL). 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) Malignant neoplasm of upper lobe of left lung (HCC) (D49.9, G13.0) Paraneoplastic neuropathy (HCC) - Increase Gabapentin to 200 mg po at bedtime - Continue working with current pain provider for [place] - Can also use Tylenol for mild pain but be aware of Tylenol amount of [place] to keep 24-hour dosageunder 3000 mg (R11.0) Nausea - Can also use Tylenol for mild pain but be aware of Tylenol amount of [place] to keep 24-hour dosageunder 3000 mg (G47.01) 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 condition - trazodone to 100 mg at bedtime (F41.9) Anxiety - Trazodone 100 mg po at hs Fatigue Ritalin 10 mg po daily Exercise as tolerated Increase protein in diet Some elements copied from my note on 03/23/24, the elements have been updated and all reflect current decision making from today, 06/15/2024. Existence of Advance Directives: Yes, documentation or copy in medical record Next Visit: 3 Months via a virtual visit Joey Scott NP, WOOL SHEARER.[employer] CLE[employer] June 15, 2024 12:47 PM I spent a total of 35 minutes on the date of the service which included preparing to see the patient, [id number] patient care, completing clinical documentation, obtaining and/or reviewing separately obtained history, performing a medically appropriate examination, counseling and educating the pat ient/family/caregiver, ordering medications, tests, or procedures, communicating with other HCPs (not separately reported), independently interpreting results (not separately reported), communicatingresults to the patient/family/caregiver, and care coordination (not separately reported). This note may have been partially generated using the Tracky voice recognition system. While every effort was made to correct voice recognition errors, kindly be aware that some errors may occasionally occur. documented in this encounterSelect Medical [place] [facility]04-09-20[address] NoteSt[facility]04-09-2025 History of Present illness Narrative* Rhea Goddard, JOSE J - 06/13/2024 7:32 AM EDT Oncology Nutrition Therapy Initial Assessment I have communicated my name and active licensure. The patient's identity and physical location wereverified at the time of this visit. Either the patient or their legal telephone claims representative has been informed of the risks and benefits of -- and alternatives to -- treatment through a remote evaluation andconsents to proceed with the evaluation remotely. RECOMMENDED MALNUTRITION DIAGNOSIS: NO MALNUTRITION IDENTIFIED Nutrition Diagnosis: Behavioral-Environmental: Food and nutrition related knowledge deficit, related to, lack of prior exposure to information , as evidenced by caregiver has no prior knowledge of need for food and nutrition related information. Nutrition Intervention: -aim for at least 3 meals per day and snack(s) as needed -aim for overall healthy balanced meals that include whole grains, lean proteins, fruits, vegetables, beans/legumes, heart healthy fats, low-fat dairy -reviewed complex vs simple carbohydrates -reviewed food sources high in potassium -encouraged light physical activity as able Nutrition Monitoring & Evaluation: -PO Intake -Wt status -BM's -Biochemical Markers -Plan of care Patient's current symptoms are: None Patient presents for nutrition counseling for: squamous cell lung cancer, left upper lobe Current Treatment: single agent nivolumab Previous Treatment(s): -s/p neoadjuvant chemotherapy (carbo/taxol/nivo), completed 12/2023 -RT 05/02/2024-05/11/2024 Pt denies any chewing/swallowing issues, denies current N/V/D/C. Pt denies food allergies/intolerances. Labs reviewed and noted pt with hypokalemia. Appetite and intakes are good. Pt reports he eats when I'm hungry and this can be a bit sporadic. He is good most days at having lunch and dinner. Typically a light breakfast. He is including allfood groups. Limits sugary beverages, will have regular soda and limits to a 10 oz can with lunch. He admits he will consume cookies, etc if they are around, but limits to 1-2 cookies. Reviewed with pt importance of adequate calories/protein and preserving lean muscle mass. Reviewed above interventions, problem solved with pt on ways to meet recommendations, and answered all of patient's questions. Thank you for allowing me to participate in the care of this pt. Readiness to Learn: Cognitive ability: Alert and oriented Motivation to learn: Interested Family support: Unable to assess - Family not present Instruction provided to: Patient Patient learns best by: Individual Instruction Factors affecting learning: None Physical limitations affecting learning: None Educational materials provided: Heart Healthy Plate, Potassium Anthropometrics: Height: Last 1 Encounter Ht Readings: Date: Ht: 05/18/2024 166.5 cm (5' 5.55 ) Current weight: Last 1 Encounter Wt Readings: Date: Wt: 05/18/2024 82 kg (180 lb 12.4 oz) Estimated body mass index is 29.58 kg/m as calculated from the following: Height as of 05/18/24: 166.5 cm (5' 5.55 ). Weight as of 05/18/24: 82 kg (180 lb 12.4 oz). Resting Metabolic Rate: 1530 Weight Change: wt appears to fluctuate b/w 81-85kg. No recent significant changes noted Comments: ongoing weight changed expected due to fluid status changes given pt on HCTZ. Dosing Weight: 82 kg Estimated kilocalorie needs: 2161-7134 kilocalories determined by 25-30 kcal/kg Estimated protein needs: 82-98 grams determined by 1.0-1.2 g/kg Dosing weight Estimated fluid needs: ~6025-7449 milliliters based on 1 mL per kcal (unless otherwise indicated) Nutrition Focused Physical Exam: Unable to perform exam due to patient unable to participate due toencounter type, will re-attempt during reassessment. Potential Signs of Inflammation: chronic condition Allergies: Sulfa (Sulfonamide Antibiotics) and Gabapentin Medications: Current Outpatient Medications Medication Sig Dispense Refill methylphenidate (RITALIN) 10 mg tablet Take 1 tablet by mouth two times a day for 30 days. 60 tablet 0 traZODone (DESYREL) 100 mg tablet Take 1 tablet by mouth daily at bedtime. MELOXICAM ORAL Take by mouth. pregabalin (LYRICA) 75 mg capsule Take 75 mg by mouth once daily. clopidogrel (PLAVIX) 75 mg tablet Take 75 mg by mouth once daily. Nicotine Polacrilex (NICORETTE) [address] 4 mg between cheek and gum as needed. Cetirizine 10 mg cap Take 10 mg by mouth once daily. albuterol HFA (PROVENTIL HFA, VENTOLIN HFA) 90 mcg/actuation inhaler Inhale 2 Puffs as instructed every 6 hours as needed. propranolol (INDERAL) 20 mg tablet TAKE 1 TABLET BY MOUTH NEEDED FOR ANXIETY ATTACKS ONCE A DAY terazosin (HYTRIN) 1 mg capsule Take 1 mg by mouth daily at bedtime. metFORMIN (GLUCOPHAGE) 850 mg tablet Take 850 mg by mouth daily with breakfast. losartan (COZAAR) 100 mg tablet Take 100 mg by mouth once daily. krill oil 500 mg cap Take 1 capsule by mouth once daily. hydroCHLOROthiazide 50 mg tablet Take 50 mg by mouth once daily. Glucosamine HCl 500 mg tab Take 1 tablet by mouth once daily. atorvastatin (LIPITOR) 40 mg tablet Take 40 mg by mouth once daily. aspirin, enteric coated (ASPIRIN, ENTERIC COATED) 81 mg EC tablet Take 81 mg by mouth once daily. levothyroxine (SYNTHROID) 175 mcg tablet Take 175 mcg by mouth daily before breakfast. ascorbic acid (VITAMIN C) 500 mg tablet Take 500 mg by mouth once daily. multivitamin tablet Take 1 tablet by mouth once daily. No current facility-administered medications for this visit. Need for Follow up: prn Referred by: nursing MNT Billing Type: Initial Assess/15 min 2 units Time Spent with Patient: 30 minutes Signed by: Rhea Goddard RD, AUDIOVISUAL TECHNICIAN, LD documented in this encounterSelect Medical [place] [facility]03-26-2025 Telephone encounter Note * Telephone Encounter - Brittni Morrell - 05/30/2024 10:32 AM EDT Spoke to jose Hill to change 0404 to 06/15. [facility] [place] [facility]03-26-2025 Miscellaneous Notes* Telephone Encounter - Brittni Morrell - 05/30/2024 10:32 AM EDT Spoke to jose Hill to change 0404 to 06/15. * Telephone Encounter - Lenora Sotelo RN - 05/30/2024 9:31 AM EDT Please contact pt and reschedule his follow up from 06/08 to 06/15 to be the same day as med onc. Thisappt should be after his appt with Michelle. Thank you Lenora Sotelo RN documented in this encounterSelect Medical [facility]03-26-2025 Telephone encounter Note * Telephone Encounter - Lenora Sotelo RN - 05/30/2024 9:31 AM EDT Please contact pt and reschedule his follow up from 06/08 to 06/15 to be the same day as med onc. Thisappt should be after his appt with Michelle. Thank you Lenora Sotelo, RN [facility] [place] [facility]03-17-2025 Telephone encounter Note* Telephone Encounter - Evangelina Linton - 05/21/2024 9:31 AM EDT After looking at appts, patient is scheduled on 06/06 following Sharona Scott appt. Thanks! Evangelina Linton [facility] [place] [facility]03-17-2025 Miscellaneous Notes* Telephone Encounter - Evangelina Linton - 05/21/2024 9:31 AM EDT After looking at appts, patient is scheduled on 06/06 following Sharona Scott appt. Thanks! Evangelina Linton * Telephone Encounter - Rhea Goddard RD - 05/21/2024 7:24 AM EDT PSS- please contact patient and schedule appointment with me. Thanks, Rhea Goddrad RD, AUDIOVISUAL TECHNICIAN, LD * Telephone Encounter - Lo Hancock MD - 05/18/2024 5:31 PM EDT Nutrition consult entered. * Telephone Encounter - Shilpi Centeno RN - 05/18/2024 1:50 PM EDT Pt is in tx room for D1C1 Opdivo. Pt reports he is borderline pre diabetic and also has had low potassium frequently. Pt would like to meet with wheel blocker. Thank you, Shilpi Centeno, EWELINA documented in this encounterSelect Medical [place] [facility]03-17-2025 Telephone encounter Note * Telephone Encounter - Rhea Goddard RD - 05/21/2024 7:24 AM EDT PSS- please contact patient and schedule appointment with me. Thanks, Rhea Goddard RD, AUDIOVISUAL TECHNICIAN, LD [facility] Work Phone: [phone] Telephone encounter Note* Telephone Encounter - Lo Hancock MD - 05/18/2024 5:31 PM EDT Nutrition consult entered. [facility] [place] [facility]03-14-20[address] Note[facility]03-14-2025 History of Present illness Narrative* Soumya Velazquez RN - 05/18/2024 3:03 PM EDT Patient education reinforced, printed literature given to him per he and his 's request. 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 Pt reports he is borderline pre diabetic and also has had low potassium frequently. Pt would like to meet with wheel blocker. Thank you, Shilpi Centeno RN [facility] [place] [facility]03-14-2025 Instructions* Patient Instructions* Nieves Smith - 05/18/2024 1:28 PM EDT Cycle 1 single agent nivolumab today RTC in 4 weeks for C2 Labs same day Continue Ritalin 10mg BID, as needed documented in this encounterSelect Medical [place] [facility]03-14-2025 History of Present illness Narrative* Lo Hancock MD - 05/18/2024 1:00 PM EDT Images from the original note were not included. NAME: Erin Pena [facility] NO.: [id number] DATE OF SERVICE: May 18, 2024 ([facility]) Some elements in this clinic note that are critical to medical decision making have been carefully reviewed and included from a prior clinic [facility]: [facility] Referring Provider: Gerald Abdi MD Additional Clinicians involved in Erin Pena's care: Dr. 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 Bronchoscopy - mediastinal and hilar LN's negative. LLL bx + Squamous cell carcinoma. Completed neoadjuvant chemo / IO late December 2023. Unfortunately does not appear to be a good candidate for surgery and is exploring SBRT vs. Chemo/RT followed by immunotherapy. Overall he has had apretty good response to date. (February 24, 2024 ). Once he completes SBRT, he will be able to start on maintenance I/O. PLAN: Cycle 1 single agent nivolumab today RTC in 4 weeks for C2 Labs same day Continue Ritalin 10mg BID, as needed HPI: CASE HISTORY: Reverse Chronological Order 05/18/2024 - C1 single agent nivolumab 05/02/2024-05/11/2024 - Radiation to chest per Dr. Hoang 04/03/2024 - PET/CT: CHEST: Decreased FDG avid left lower lobe malignant mass, residual small opacity with mild uptake HEAD/NECK, ABDOMEN/PELVIS, MUSCULOSKELETAL: No FDG avid disease. 01/25/2024 - CT CAP: Chest: Decreased size of the left lower lobe mass. No new suspicious appearing pulmonary nodules orthoracic lymphadenopathy. A/P: No metastatic disease in the abdomen or pelvis. 11/16/2023-12/28/2023 - 3 cycles of Carbo/Taxol + Nivo q 3 weeks (C2 & 3: Decrease Taxol to 175and Carbo AUC to 5) 11/01/2023 - Bronchoscopy: with Dr. Craig Cytology: 5 lymph nodes: Negative for malignant cells. Benign lymphoid sample 10/21/2023 - PET/CT: Abnormal uptake confined to the left upper lobe mass without evidence for metastatic disease. 10/05/2023 - Lung, left lower lobe, core biopsy: at [facility] - Invasive squamous cell carcinoma Comment: In order to classify the neoplasm, immunohistochemical staining is performed on 1B and demonstrates that the tumor cells are diffusely positive for AE1/AE3 and p40, and negative for TTF-1 and Napsin A with adequate controls, supporting the above diagnosis 09/28/2023 - CT Chest: 5.2 cm left upper lobe mass with satellite nodule, concerning for malignancy. Focal necrotizing pneumonia felt less likely but could appear similarly in the appropriate clinical setting. 09/28/2023 - MRI Brain: No acute intracranial findings. 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 09/27/2023 - CTA Neck: Partially visualized lobulated left lower lobe pulmonary mass measuring up to 4.8 cm highly concerning for malignancy. Complete CT chest examination recommended for further evaluation. 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 Mild (less than 50%) luminal narrowing of the proximal left internal carotid artery. 09/27/2023-09/29/2023 - Admitted at [facility] with left sided weakness, slurred speech - stroke workup negative 09/25/2023 - ER for bilateral leg weakness Updated Visit, May 18, 2024: Sergio returns with Mandy for a follow up. He completed his course of radiation. Endorses a cough and a burning sensation as a result of treatment. He is in agreement to resume nivolumab only today, reviewed warning signs of pneumonitis. Discussed the plan for 2 years of immunotherapy as he did not have resection. He also mentions redness on his thighs - will continue to monitor. Updated Visit, April 11, 2024: Sergio returns with Mandy for a follow up. Recent PET/CT shows continued response. He is scheduled to start a short course of radiation with Dr. Hoang. Will plan to start singe agent nivolumab following radiation. Updated Visit, February 24, 2024: Sergio returns with Mandy for a follow up. He has met with Dr. Oreilly to consider surgery - patient reports he may not be a candidate for surgery at this time. He is undergoing pulmonary testing and received a referral to radiation. If surgery he not safe for him, radiation would be a sufficient treatment option. Following his NM lung perfusion scan on 02/17/2024, he developed fatigue and generalized body aches. He has sharp pains in his heels when waking up in the morning, more recently the painspread to his toes. 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 CBC is normal, potassium remains low - I recommended he start a supplement. Updated Visit, December 28, 2023: Sergio and his , Mandy, return for his third and final planned cycle of Carbo/Taxol + Nivo. He complains of worsening dyspnea on exertion and productive coughing. He has gained weight recently - admits he is eating more now that he has stopped smoking. Lungs sound clear in all four quadrants. Worsening anemia and weight gain may be the cause of dyspnea. It is unlikely he has pneumonitis given his symptoms but advised him to contact the office dyspnea continues. He also endorses irritability which he feels is due to gabapentin - will discontinue. He has been prescribed Ritalin in the past to manage mood disorders - will send a new prescription. 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 He has not been diagnosed with diabetes although will be seeing his PCP soon to consider treatment for pre-diabetes. They are going to a football game in [place] around [facility], will complete CT CAP and surgery when he returns from his trip. Updated Visit, December 07, 2023: Sergio returns with Mandy for treatment. He endorses feeling like he was hit by a truck starting on the third day following treatment. He experiences nausea, vomiting, and acid reflux at night. I recommended he sleep with his head elevated and start his antiemetics today. He is treating neuropathywith gabapentin, is improving now. I will reduce his chemotherapy dose to manage toxicity. He has lost his hair due to treatment. Updated Visit, November 16, 2023: Sergio returns with Mandy to begin Carbo/Taxol + Nivo. He underwent a bronchoscopy on 10/31 - negative for rowena involvement. Plan for 3 cycles of treatment prior to resection. He is slightly anemic today, will check iron studies on Day 10 with david counts. Initial Visit, October 21, 2023: Erin Pena presents today for a Hematology and Oncology evaluation and second opinion.He is joined by his , Mandy. 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 He completed a PET/CT this morning which shows confined uptake in the left lung without metastatic disease. I recommended chemo+immuno treatment followed by surgery once staging studies are completed. He will also need PFTs to give predictive capacity following a potential resection. He is in agreement to start after staging is complete. Will refer him to Drs. Craig and Afia forsurgical evaluation. 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 Erin's [id number] is Arie Baker, who is my patient also. REVIEW OF SYSTEMS Per HPI and otherwise negative by full review of organ systems. ECOG PERFORMANCE STATUS: 1 PHYSICAL EXAMINATION: Vitals: BP 133/54 Pulse 65 Temp (Src) 97.1 (Temporal) Resp 16 Ht 5' 5.551 [verified no shoes[ (1.67m) Wt 180 lb 12.4 oz (82.0kg) SpO2 96% BMI 29.58 kg/(m^2). Body surface area is 1.95 meters squared. Exam limited to gross visualization where appropriate. Gen.: This is an age-appropriate patient in no acute distress. Head: Appears atraumatic with no visible lesions. Eyes: Pupils equally round and reactive to light, extraocular muscles are intact. Neck: Supple. Respiratory: Appears to be respiring comfortably. Neurologic: Nonfocal to gross visualization. Alert and oriented 3. Psychiatric: No evidence of inappropriate anxiety or depression. Skin: Visible areas of skin without rash, lesions, wounds or petechiae. ALLERGIES: ALLERGIES Allergen Reactions Sulfa (Sulfonamide * Unknown Unkown, was a child Gabapentin Intolerance Causes Altered mental Status MEDICATIONS: traZODone (DESYREL) 100 mg tablet Take 1 tablet by mouth daily at bedtime. MELOXICAM ORAL Take by mouth. pregabalin (LYRICA) 75 mg capsule Take 75 mg by mouth once daily. clopidogrel (PLAVIX) 75 mg tablet Take 75 mg by mouth once daily. Nicotine Polacrilex (NICORETTE) [address] 4 mg between cheek and gum as needed. Cetirizine 10 mg cap Take 10 mg by mouth once daily. albuterol HFA (PROVENTIL HFA, VENTOLIN HFA) 90 mcg/actuation inhaler Inhale 2 Puffs as instructed every 6 hours as needed. propranolol (INDERAL) 20 mg tablet TAKE 1 TABLET BY MOUTH NEEDED FOR ANXIETY ATTACKS ONCE A DAY terazosin (HYTRIN) 1 mg capsule Take 1 mg by mouth daily at bedtime. metFORMIN (GLUCOPHAGE) 850 mg tablet Take 850 mg by mouth daily with breakfast. losartan (COZAAR) 100 mg tablet Take 100 mg by mouth once daily. krill oil 500 mg cap Take 1 capsule by mouth once daily. hydroCHLOROthiazide 50 mg tablet Take 50 mg by mouth once daily. Glucosamine HCl 500 mg tab Take 1 tablet by mouth once daily. atorvastatin (LIPITOR) 40 mg tablet Take 40 mg by mouth once daily. aspirin, enteric coated (ASPIRIN, ENTERIC COATED) 81 mg EC tablet Take 81 mg by mouth once daily. levothyroxine (SYNTHROID) 175 mcg tablet Take 175 mcg by mouth daily before breakfast. ascorbic acid (VITAMIN C) 500 mg tablet Take 500 mg by mouth once daily. multivitamin tablet Take 1 tablet by mouth once daily. methylphenidate (RITALIN) 10 mg tablet Take 1 tablet by mouth two times a day for 30 days. LABORATORY VALUES: WBC (k/uL) Date Value 05/18/2024 5.58 RBC (m/uL) Date Value 05/18/2024 4.10 (L) Hemoglobin (g/dL) Date Value 05/18/2024 12.2 (L) Hematocrit (%) Date Value 05/18/2024 35.9 (L) MCV (fL) Date Value 05/18/2024 87.6 MCH (pg) Date Value 05/18/2024 29.8 MCHC (g/dL) Date Value 05/18/2024 34.0 RDW-CV (%) Date Value 05/18/2024 15.0 Platelet Count (k/uL) Date Value 05/18/2024 205 MPV (fL) Date Value 05/18/2024 9.4 Glucose (mg/dL) Date Value 05/18/2024 143 (H) BUN (mg/dL) Date Value 05/18/2024 15 Creatinine (mg/dL) Date Value 05/18/2024 0.74 Sodium (mmol/L) Date Value 05/18/2024 137 Potassium (mmol/L) Date Value 05/18/2024 3.2 (L) Chloride (mmol/L) Date Value 05/18/2024 94 (L) CO2 (mmol/L) Date Value 05/18/2024 32 (H) Protein, Total (g/dL) Date Value 05/18/2024 6.4 Albumin (g/dL) Date Value 05/18/2024 4.5 Calcium, Total (mg/dL) Date Value 05/18/2024 9.4 Alkaline Phosphatase (U/L) Date Value 05/18/2024 67 Bilirubin, Total (mg/dL) Date Value 05/18/2024 0.4 AST (U/L) Date Value 05/18/2024 25 ALT (U/L) Date Value 05/18/2024 24 DIAGNOSIS: (R53.81, R53.83) Malaise and fatigue Plan: methylphenidate (RITALIN) 10 mg tablet (F90.2) Attention deficit hyperactivity disorder (ADHD), combined type Plan: methylphenidate (RITALIN) 10 mg tablet PAST MEDICAL HISTORY Diagnosis Date Chronic obstructive pulmonary disease (HCC) 10/20/2023 Hypertension Hypothyroidism Lung cancer (HCC) 2023 refBy [place] Other affections of shoulder region, not elsewhere classified 03/14/2012 PAST SURGICAL HISTORY Procedure Laterality Date APPENDECTOMY BRAIN SURGERY HX COLONSCOPY SCREENING HIGH RISK FINGER AMPUTATION (SPECIFY DIGIT) HX HAND SURGERY HX HEMORROIDECTOMY INTERNAL LUNG BIOPSY Left NECK SURGERY HX PAST SURGICAL HISTORY OF Heart cath REMV CATARACT EXTRACAP,INSERT LENS S KIT CRAINIOTOMY [id number] SHOULDER ARTHROSCOPY/SURG TYMPANOSTOMY GENERAL ANESTHESIA XR CERVICAL FUSION OR C4 fusion Social History Tobacco Use Smoking status: Former Current packs/day: 0.00 Average packs/day: 0.5 packs/day for 50.0 years (25.0 ttl pk-yrs) Types: Cigarettes Start date: 09/22/1973 Quit date: 09/23/2023 Years since quittin.6 Passive exposure: Current Smokeless tobacco: Never Tobacco comments: Quit September 26 Vaping Use Vaping status: Former Substance Use Topics Alcohol use: No Drug use: No FAMILY HISTORY Problem Relation Age of Onset Stroke Mother Cancer Mother Heart disease Father Hypertension Father Stroke Paternal Grandmother Anesthesia Problems No Family History I spent a total of 30 minutes on the date of the service which included preparing to see the patient, [id number] patient care, completing clinical documentation, obtaining and/or reviewing separately obtained history, performing a medically appropriate examination, counseling and educating the pat ient/family/caregiver, ordering medications, tests, or procedures, communicating with other HCPs (not separately reported), independently interpreting results (not separately reported), communicatingresults to the patient/family/caregiver, and care coordination (not separately reported). Lo Hancock MD, CPE Hematology and Oncology Services Provided at: [facility], [place], [place] Scribe Attestation: This note was scribed by Nieves Smith on May 18, 2024 under the direction and supervision ofDr. Lo Hancock. I attest that all of the information documented is correct to the best of my knowledge. Provider Attestation: I, Lo Hancock MD, attest that all information documented by the above scribe is correct, and was supervised by me and under my direction. CC: Gerald Abdi [id number] [facility] [address] [facility] [id number] Basia Vega MD [address] [facility] [id number] Savanah Oreilly MD documented in this encounterSelect Medical [facility] NoteSt[facility]03-12-2025 NoteHNO ID: [id number] Author: ?, ?, ? Service: ? Author Type: ? Type: Progress Notes Filed: 05/16/2024 16:28 Note Text: opened in errorSt. Elizabeth Hospital03-07-2025 History of Present illness Narrative* Jack Hoang MD - 05/11/2024 12:00 AM EST [facility] Radiation Oncology Department RADIATION ONCOLOGY - COMPLETION NOTE PATIENT: ERIN PENA: 1955 DATES OF TREATMENT: 05/02/24-05/09/24 DIAGNOSIS: Mr. Pena is a 68-year-old gentleman recently diagnosed with an early stage, [id number], non-small cell lung cancer (SCC) arising in the left lower lobe lung status post biopsy of the lung mass on 10/05/2023. Pathologic staging of the mediastinum on 11/01/2023 was negative. Staging workup with MRI of the brain and PET/CT noted FDG avidity in the approximately 5 cm left upper lobe lung mass with no other areas concerning for disease. He met with Dr. Hancock and Dr. Oreilly and opted to proceed to preoperative systemic therapy followed by surgical resection. He completed his preoperative systemic therapy consisting of 3 cycles of carboplatin Taxol and nivolumab between 11/16/2023 and 12/28/2023. Repeat imaging with CT chest abdomen pelvis from 01/25/2024 notes decrease in size of theleft lower lobe lung mass with no new areas concerning for disease progression. He declined surgical resection and proceeded to SBRT. AREA TREATED: Left Lower Lobe of the Lung DELIVERED DOSE: 6,000 cGy in 5 fractions, 2 Arcs, SBRT, 6FFF with daily CBCT and triggered imaging TOTAL: 6,000cGy delivered in 5 fractions (SBRT) ELAPSED TIME: 9 days. CLINICAL SUMMARY: The patient tolerated course of SBRT to the left chest well with no significant issues. The patient was able to complete treatment as intended without break interruption or modification of prescription plan. The patient will be evaluated in 3-4 weeks for postradiation follow-up with plans for initial post- treatment imaging of the chest in 8-12 weeks. Staff Physician Jack Hoang M.D. / 54:17 AM Electronically Signed cc: Lo Hancock MD ([facility]) Dick Miranda MD [address] [facility] [id number] [address] documented in this encounterSelect Medical [facility]03-07-2025 NoteSt. Elizabeth Hospital03-05-2025 NoteSt. Elizabeth Hospital03-05-2025 History of Present illness Narrative* Mihai Woody LMT - 05/09/2024 4:31 PM EST Patient Name: Erin Pena : 1955 Referred For: chair massage Diagnosis: muscle soreness Chief Complaint: Pain Anxiety (pre): 5 Pain (pre): 5 Stress Level (pre): 5 Therapy Provided: Massage Therapy Area(s) Treated: back Anxiety (post): 3 Pain (post): 3 Stress Level (post): 3 Visit Outcome: Better Comments: [facility] Treatment Plan: [facility] Care Team contacted: N/A Signature: Mihai Woody LMT Date: May 09, 2024 Time: 4:31 PM documented in this encounterSelect Medical [facility]02-27-2025 [facility]02-27-2025 History of Present illness Narrative* Mihai Woody LMT - 05/03/2024 4:10 PM EST Patient Name: Erin Pena : 1955 Referred For: chair massage Diagnosis: muscle soreness Chief Complaint: Pain Anxiety (pre): 5 Pain (pre): 5 Stress Level (pre): 5 Therapy Provided: Massage Therapy Area(s) Treated: lumbar, cervical focus Anxiety (post): 4 Pain (post): 4 Stress Level (post): 4 Visit Outcome: Better Comments: [facility] Treatment Plan: [facility] Care Team contacted: N/A Signature: Mihai Woody LMT Date: May 03, 2024 Time: 4:10 PM documented in this encounterSelect Medical [facility]02-26-2025 [facility]02-26-2025 Telephone encounter Note* Telephone Encounter - Kalee Daniel - 05/02/2024 1:22 PM EST Patient has been rescheduled for Follow up with Dr Bobby machado and Infusion tx on 05-18-24. Will let thepatient know when he is here on Tuesday for XRT. [facility]02-26-2025 Miscellaneous Notes* Telephone Encounter - Kalee Daniel - 05/02/2024 1:22 PM EST Patient has been rescheduled for Follow up with Dr Bobby machado and Infusion tx on 05-18-24. Will let thepatient know when he is here on Tuesday for XRT. * Telephone Encounter - Lenora Sotelo RN - 05/02/2024 11:08 AM EST Pt starts XRT Today and will finish 05/11. Per Dr Hoang, please hold immunotherapy until about a weekafter this is complete. Pt is currently scheduled for infusion on 05/10. Thank you Lenora Sotelo RN documented in this encounterSelect Medical [facility]02-26-2025 Telephone encounter Note * Telephone Encounter - Lenora Sotelo RN - 05/02/2024 11:08 AM EST Pt starts XRT Today and will finish 05/11. Per Dr Hoang, please hold immunotherapy until about a weekafter this is complete. Pt is currently scheduled for infusion on 05/10. Thank you Lenora Sotelo RN [facility]02-17-2025 History of Present illness Narrative* Robert King NP - 04/23/2024 10:00 AM ESTAssociated Order(s): L Inj/Asp: R subacromial bursa; L Inj/Asp: L subacromial bursa Images from the original note were not included. HISTORY OF PRESENT ILLNESS: EST PT Erin Pena is an 68 y.o. @ male. (EST PT) - RECHECK (R) HIP- LAST BURSA INJ 03/14/24 WITH PARTIAL RELIEF. WOULD LIKE TO DISCUSS ANOTHER INJECTION XRAY 07/26/23 IN [facility] CT PELVIS 07/31/23 @[facility] MRI (R) HIP / L-SPINE 08/09/23 IN [facility] CORTISONE INJ 07/19/23, 07/26/23, 09/27/23, 03/14/24 PREDNISONE 07/2023 R HIP PAIN SINCE 06/2023 (~10 MONTHS. PAIN 09/13 TODAY. DULL/ACHING PAIN. TAKING MELOXICAM AND VICODIN. PAIN IS WAKING PT AT NIGHT. STATES THAT IT IS THE WORSE AT NIGHT TIME. SLIGHT N/T BUT DOES HAVE AHX OF NEUROPATHY. PAIN IS NOT BAD WHEN SITTING. MILD DISCOMFORT WITH WALKING. DENIES LIMP DX WITH LUNG CANCER, COMPLETED CHEMO. RADIATION BEGINS 04/24/24 HX TIA HX 2 PRIOR LUMBAR SX *NEW PROBLEM* B/L SHOULDER PAIN, RT>LT. CORTISONE INJ-LAST 10/05/18 HX OF CHRONIC FROZEN SHOULDER. HX OF LT DISLOCATION. PRIOR TX BY DR TORRES AT [facility] IN 2013. MOST PAINFUL WHEN ARMS ARE OVERHEAD. + WAKE AT HS. ROM LIMITED AND PAINFUL. HE IS STARTING RADIATION ON 04/24 FOR LUNG CA AND WILL NEED TO HAVE BOTH ARMS OVERHEAD-HE IS CONCERNED HE WILL NOT BE ABLE TO DUE TO PAIN/ROM ALLERGIES: Allergies Allergen Reactions Spiriva Respimat [Tiotropium [place] Monohydrate] Shortness of breath Pt reported having increased shortness of breath after trying med 1 time. Sulfa Antibiotics Unknown and Rash Unkown, was a child Gabapentin Other HOME MEDICATIONS: Current Outpatient Medications Medication Instructions albuterol HFA 90 mcg/act inhaler 2 puffs, Every 6 hours PRN ascorbic acid (VITAMIN C) 500 mg, Daily RT aspirin 81 mg, Daily RT atorvastatin (LIPITOR) 40 mg, Oral, Daily cetirizine (ZYRTEC) 10 mg, Daily RT cholecalciferol (VITAMIN D-3) 500 Units, Daily RT diazePAM (VALIUM) 5 mg, Oral, 3 times daily PRN Glucosamine 750 MG tablet Daily hydroCHLOROthiazide (HYDRODIURIL) 50 mg, Oral, Every morning HYDROcodone-acetaminophen ([place]) 7.5-325 MG tablet 1 tablet, Oral, 4 times daily PRN Ketoconazole (Nizoral) 1 % shampoo 1 Application, Apply externally, 2 times weekly Krill Oil ([place]-3) 500 MG capsule Take by mouth. losartan (COZAAR) 100 mg, Oral, Daily meloxicam (Mobic) 7.5 MG tablet Take by mouth metFORMIN (GLUCOPHAGE) 850 mg, Oral, Daily with breakfast methylphenidate CD (METADATE CD) 10 mg, Every morning Multiple Vitamin (Multi-Vitamin) tablet 1 tablet, Daily RT nicotine (Nicoderm, Step 1) 21 MG/24HR patch 1 patch, Transdermal, Every 24 hours omeprazole OTC (PRILOSEC OTC) 20 mg, Daily before breakfast ondansetron (ZOFRAN) 8 mg, Every 8 hours PRN potassium chloride CR (Klor-Con) 8 MEQ ER tablet 8 mEq, Daily pregabalin (LYRICA) 75 mg, Oral, 2 times daily prochlorperazine (COMPAZINE) 10 mg, Every 6 hours PRN propranolol (Inderal) 20 MG tablet TAKE 1 TABLET BY MOUTH NEEDED FOR ANXIETY ATTACKS ONCE A DAY sildenafil (VIAGRA) 100 mg, Oral, Daily PRN Synthroid 175 MCG tablet TAKE 1 TABLET (175 MCG) BY MOUTH IN THE MORNING. TAKE BEFORE MEALS. terazosin (Hytrin) 1 MG capsule TAKE 1 CAPSULE BY MOUTH EVERYDAY AT BEDTIME traZODone (DESYREL) 100 mg, Oral, Nightly Vitamin E 20 Units, Daily RT PHYSICAL EXAM: Right Shoulder Exam Tenderness Right shoulder tenderness location: anterior lateral tenderness. Range of Motion Forward flexion: 140 (pain passing 90 degrees) Muscle Strength Right shoulder normal muscle strength: 4+/5. Other Sensation: normal Pulse: present Comments: +painful arc Left Shoulder Exam Tenderness Left shoulder tenderness location: anterior posterior tenderness. Range of Motion Forward flexion: 140 (pain passing 90 degrees) Muscle Strength Left shoulder normal muscle strength: 4+/5. Other Sensation: normal Pulse: present Comments: +painful arc Vitals: There is no height or weight on file to calculate BMI. Tobacco Use: Medium Risk (04/18/2024) Received from [facility] Patient History Smoking Tobacco Use: Former Smokeless Tobacco Use: Never Passive Exposure: Not on file Alcohol Use: Not At Risk (04/19/2023) AUDIT-C Frequency of Alcohol Consumption: Monthly or less Average Number of Drinks: 1 or 2 Frequency of Binge Drinking: Never IMAGING: L Inj/Asp: R subacromial bursa on 04/23/2024 3:10 PM Indications: pain Details: 20 G needle, posterior approach Medications: 40 mg methylPREDNISolone acetate 40 MG/ML Outcome: tolerated well, no immediate complications Site cleaned with isopropyl alcohol. Procedure, treatment alternatives, risks and benefits explained, specific risks discussed. Consent was given by the patient. L Inj/Asp: L subacromial bursa on 04/23/2024 3:10 PM Indications: pain Details: 20 G needle, posterior approach Medications: 40 mg methylPREDNISolone acetate 40 MG/ML Outcome: tolerated well, no immediate complications Site cleaned with isopropyl alcohol Procedure, treatment alternatives, risks and benefits explained, specific risks discussed. Consent was given by the patient. Orders Placed This Encounter Procedures L Inj/Asp: R subacromial bursa This order was created via procedure documentation L Inj/Asp: L subacromial bursa This order was created via procedure documentation ASSESSMENT: ICD-10-CM 1. Impingement syndrome of right shoulder M75.41 2. Acute pain of right shoulder M25.511 CANCELED: XR shoulder 2+ views right 3. Acute pain of left shoulder M25.512 CANCELED: XR shoulder 2+ views left 4. Impingement syndrome of left shoulder M75.42 PLAN: Patient states that he still has right hip pain over the bursa but had some relief with injection. Educated patient on HEP to help with pain. I reviewed exam findings of both shoulders as patient declined xrays today. I discussed treatment options, answered questions. I discussed with the patient of injections in both shoulder SA space. I advised the patient of risks associated with an injection including a reaction to medication, infection, failure to improve and possible worsening. The patient demonstrated understanding. Patient requesting injection. Skin Cleansed with alcohol swab. Utilizing aseptic technique patient given 40mg Depomedrol was injected in both shoulders. Patient toleratedthis well. Neurovasc intact s/p injection. Post injection care instructions discussed. He will follow up in 4 weeks for RCK if still painful. Questions answered in laymen terms at the bedside. The diagnosis, home exercise plan and any ongoing restrictions/ recommendations reviewed. If unable to be reached in office, I recommend evaluation at nearest Emergency Room if any symptoms worsened or new symptoms develop for requiring urgent evaluation. Robert King [employer] documented in this encounterSaint Luke's North Hospital–Barry [id number] History of Present illness Narrative* Dick Miranda MD - 04/18/2024 10:44 AM ESTAssociated Problem(s): Chronic obstructive pulmonary disease (CMS/HCC) Symptoms stable and use albuterol PRN. 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 * Dick Miranda MD - 04/18/2024 10:42 AM ESTAssociated Problem(s): Medicare annual wellness visit, subsequent Reviewed labs. Discussed proper diet and regular aerobic exercise. Need aerobic exercise 5-6 days aweek for 30 minutes at a time. Smaller portions and limit total calories. Colonoscopy every 10 years. Tetanus every 10 years. Advised not to smoke. * Dick Miranda MD - 04/18/2024 10:00 AM EST Subjective Patient ID: Erin Pena is a 68 y.o. male who presents for Medicare Annual Wellness Visit Subsequent (wellness), Shoulder Pain, and Hip Pain. Presents for medicare annual wellness visit. Patient stable today. Weight up 6 pounds and stopped smoking few months ago. Not as active and no exercise. Tries to watch diet and eat healthy. Increasedfruits and vegetables. Smaller portions and limits snacking. Tries to limit total daily calories. Reviewed labs. C/o rash on eyebrows and around nose for several weeks. Skin red and flaky. At times itchy. Mild dandruff. Following with oncology and will start radiation next week. COPD stable. Review of Systems Constitutional: Negative for fatigue. Respiratory: Negative for cough, shortness of breath and wheezing. Cardiovascular: Negative for chest pain and palpitations. Gastrointestinal: Negative for abdominal pain, diarrhea, nausea and vomiting. Genitourinary: Negative for dysuria. Objective Physical Exam Constitutional: General: He is not in acute distress. Appearance: Normal appearance. HENT: Head: Normocephalic. Right Ear: Tympanic membrane and ear canal normal. Left Ear: Tympanic membrane and ear canal normal. Eyes: Extraocular Movements: Extraocular movements intact. Pupils: Pupils are equal, round, and reactive to light. Cardiovascular: Rate and Rhythm: Normal rate and regular rhythm. Heart sounds: No murmur heard. No friction rub. No gallop. Pulmonary: Breath sounds: Normal breath sounds. No wheezing, rhonchi or rales. Abdominal: General: Bowel sounds are normal. There is no distension. Palpations: Abdomen is soft. Tenderness: There is no abdominal tenderness. There is no guarding or rebound. Musculoskeletal: Left lower leg: No edema. Neurological: Mental Status: He is alert. 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 Chronic obstructive pulmonary disease (CMS/HCC) Symptoms stable and use albuterol PRN. Seborrheic dermatitis Relevant Medications Ketoconazole (Nizoral) 1 % shampoo (Start on 04/19/2024) Medicare annual wellness visit, subsequent - Primary Reviewed labs. Discussed proper diet and regular aerobic exercise. Need aerobic exercise 5-6 days aweek for 30 minutes at a time. Smaller portions and limit total calories. Colonoscopy every 10 years. Tetanus every 10 years. Advised not to smoke. documented in this encounterSaint Luke's North Hospital–Barry [id number] NoteSt. Elizabeth Hospital02-05-2025 History of Present illness Narrative* Jack Hoang MD - 04/11/2024 11:59 PM EST Radiation Oncology - Follow Up Note PATIENT NAME: Erin Pena PATIENT DIAGNOSIS/PATIENT IDENTIFICATION: Mr. Pena is a 68-year-old gentleman recently diagnosed with anearly stage, [id number], non-small cell lung cancer (SCC) arising in the left lower lobe lung status post biopsy of the lung mass on 10/05/2023. Pathologic staging of the mediastinum on 11/01/2023 was negative. Staging workup with MRI of the brain and PET/CT noted FDG avidity in the approximately 5 cm left upper lobe lung mass with no other areas concerning for disease. He met with Dr. Hancock and Dr. Oreilly and opted to proceed to preoperative systemic therapy followed by surgical resection. He completed his preoperative systemic therapy consisting of 3 cycles of carboplatin Taxol and nivolumab between 11/16/2023 and 12/28/2023. Repeat imaging with CT chest abdomen pelvis from 01/25/2024 notes decrease in size of the left lower lobe lung mass with no new areas concerning for disease progression. He was in the process of meeting with Dr. Oreilly regarding proceeding to surgery however is considering declining surgical resection at this time. He was referred to the radiation medicine clinic to have a discussion regarding the potential role of radiation therapy in the definitive treatment ofhis early stage non-small cell lung cancer. Mr. Pena returns to clinic today for follow-up and simulation as previously discussed during consultation on 03/12/2024. In the interim, he has opted against proceeding with surgical resection andwishes to pursue definitive stereotactic body radiation therapy. We again briefly reviewed the rationale, logistics, and toxicity of radiation therapy to the chest in this definitive setting. After all of his questions were answered, informed consent was obtained. He will proceed to CT simulation following this visit to begin treatment planning and I anticipate starting radiation shortly. Thank you for allowing us to participate in the care of this patient. Signed by: Jack Hoang MD I spent a total of 10 minutes on the date of the service which included preparing to see the patient, [id number] patient care, and counseling and educating the patient/family/caregiver. This document has been created with the use of voice recognition technology. It may contain inaccuracies, misspellings, inaccurate syntax or inappropriate word context that are a result of the inadequacies/shortcomings of said technology/software. documented in this encounterSelect Medical [facility]-05-2025 NoteSt. Elizabeth Hospital02-05-2025 History of Present illness Narrative* Olesya Braun RN - 04/11/2024 3:25 PM EST Radiation Therapy - Patient Education Note PATIENT NAME: Erin Pena PATIENT April 11, 2024 [facility] FACILITY[facility]LOCATION: [facility] READINESS TO LEARN Cognitive Ability: Alert and oriented Motivation to learn: Interested Family Support: High - Very involved in pt care Instruction provide to: Patient and Spouse Patient learns best by: Written Instruction - Hand-outs Verbal Instruction Multiple Methods Factors effecting learning: None Physical limitations effecting learning: None LEARNING RESPONSE Diagnosis: Pt simulated today for radiation therapy to lung. Education Topic/Teaching Points: Radiation therapy, Side effects, and OTV: Method of instruction: Written instruction/Handouts Verbal instruction Patient /Family response: Patient and family verbalized understanding of radiation treatments, sideeffects, OTV, and transportation. Follow-up plan: Patient instructed to call with any further issues Recommend - Recommend continued instruction and follow up as directed Supplemental material: Informational handouts on SBRT lung. Referral (recommendation): None, Pt denied need for social work, van service, and wheel blocker. Was PED reviewed? No Patient has an Onbody or Implanted device: No Signed by: Olesya Braun RN documented in this encounterSelect Medical [place] [facility]02-05-2025 NoteSt. Elizabeth Hospital02-05-2025 History of Present illness Narrative* Steffany Damian LSW - 04/11/2024 2:56 PM EST SOCIAL WORK FOLLOW UP NOTE: [facility] Date of service:04/11/24 Erin Pena is being seen for a follow up social work visit. Today's visit includes: spouse and patient TOPICS ADDRESSED: community resources and [place] [facility] Cancer Care Fund forms PLAN: Assist with financial support applications, Continue follow up as needed , and Referral to community resource Assigned SW listed in Care Team tab: Yes Message received that the Patient wanted to know if this SW had [facility] Cancer Care [facility] forms completed. SW had not received such paperwork. SW offered to complete the necessary paperwork and Patient was agreeable. Paperwork for the Cancer Care Fund was completed and faxed to Kassidy at the [facility]. VITOR Edwards documented in this encounterSelect Medical [facility]02-05-2025 Instructions* Patient Instructions* Nieves Smith - 04/11/2024 2:14 PM EST Proceed radiation per Dr. Hoang Repeat labs on first day of radiation RTC on 05/09 or 05/10 to start immunotherapy (nivolumab) Labs same day Continue Ritalin 10mg BID, as needed documented in this encounterSelect Medical [facility]02-05-2025 History of Present illness Narrative* Lo Hancock MD - 04/11/2024 1:00 PM EST Images from the original note were not included. NAME: Erin Pena [facility] NO.: [id number] DATE OF SERVICE: April 11, 2024 (Khadijah) Some elements in this clinic note that are critical to medical decision making have been carefully reviewed and included from a prior clinic note dated: February 24, 2024 (Khadijah) Referring Provider: Gerald Abdi MD Additional Clinicians involved in Erin Pena's care: Dr. 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 Bronchoscopy - mediastinal and hilar LN's negative. LLL bx + Squamous cell carcinoma. Completed neoadjuvant chemo / IO late December 2023. Unfortunately does not appear to be a good candidate for surgery and is exploring SBRT vs. Chemo/RT followed by immunotherapy. Overall he has had apretty good response to date. (February 24, 2024 ). Once he completes SBRT, he will be able to start on maintenance I/O. PLAN: Proceed radiation per Dr. Hoang Repeat labs on first day of radiation RTC on 05/09 or 05/10 to start immunotherapy (nivolumab) Labs same day Continue Ritalin 10mg BID, as needed HPI: CASE HISTORY: Reverse Chronological Order 04/03/2024 - PET/CT: CHEST: Decreased FDG avid left lower lobe malignant mass, residual small opacity with mild uptake HEAD/NECK, ABDOMEN/PELVIS, MUSCULOSKELETAL: No FDG avid disease. 01/25/2024 - CT CAP: Chest: Decreased size of the left lower lobe mass. No new suspicious appearing pulmonary nodules orthoracic lymphadenopathy. A/P: No metastatic disease in the abdomen or pelvis. 11/16/2023-12/28/2023 - 3 cycles of Carbo/Taxol + Nivo q 3 weeks (C2 & 3: Decrease Taxol to 175and Carbo AUC to 5) 11/01/2023 - Bronchoscopy: with Dr. Craig Cytology: 5 lymph nodes: Negative for malignant cells. Benign lymphoid sample 10/21/2023 - PET/CT: Abnormal uptake confined to the left upper lobe mass without evidence for metastatic disease. 10/05/2023 - Lung, left lower lobe, core biopsy: at [facility] - Invasive squamous cell carcinoma Comment: In order to classify the neoplasm, immunohistochemical staining is performed on 1B and demonstrates that the tumor cells are diffusely positive for AE1/AE3 and p40, and negative for TTF-1 and Napsin A with adequate controls, supporting the above diagnosis 09/28/2023 - CT Chest: 5.2 cm left upper lobe mass with satellite nodule, concerning for malignancy. Focal necrotizing pneumonia felt less likely but could appear similarly in the appropriate clinical setting. 09/28/2023 - MRI Brain: No acute intracranial findings. 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 09/27/2023 - CTA Neck: Partially visualized lobulated left lower lobe pulmonary mass measuring up to 4.8 cm highly concerning for malignancy. Complete CT chest examination recommended for further evaluation. 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 Mild (less than 50%) luminal narrowing of the proximal left internal carotid artery. 09/27/2023-09/29/2023 - Admitted at [facility] with left sided weakness, slurred speech - stroke workup negative 09/25/2023 - ER for bilateral leg weakness Updated Visit, April 11, 2024: Sergio returns with Mandy for a follow up. Recent PET/CT shows continued response. He is scheduled to start a short course of radiation with Dr. Hoang. Will plan to start nivolumab following radiation. Updated Visit, February 24, 2024: Sergio returns with Mandy for a follow up. He has met with Dr. Oreilly to consider surgery - patient reports he may not be a candidate for surgery at this time. He is undergoing pulmonary testing and received a referral to radiation. If surgery he not safe for him, radiation would be a sufficient treatment option. Following his NM lung perfusion scan on 02/17/2024, he developed fatigue and generalized body aches. He has sharp pains in his heels when waking up in the morning, more recently the painspread to his toes. 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 CBC is normal, potassium remains low - I recommended he start a supplement. Updated Visit, December 28, 2023: Sergio and his , Mandy, return for his third and final planned cycle of Carbo/Taxol + Nivo. He complains of worsening dyspnea on exertion and productive coughing. He has gained weight recently - admits he is eating more now that he has stopped smoking. Lungs sound clear in all four quadrants. Worsening anemia and weight gain may be the cause of dyspnea. It is unlikely he has pneumonitis given his symptoms but advised him to contact the office dyspnea continues. He also endorses irritability which he feels is due to gabapentin - will discontinue. He has been prescribed Ritalin in the past to manage mood disorders - will send a new prescription. 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 He has not been diagnosed with diabetes although will be seeing his PCP soon to consider treatment for pre-diabetes. They are going to a football game in [place] around [facility], will complete CT CAP and surgery when he returns from his trip. Updated Visit, December 07, 2023: Sergio returns with Mandy for treatment. He endorses feeling like he was hit by a truck starting on the third day following treatment. He experiences nausea, vomiting, and acid reflux at night. I recommended he sleep with his head elevated and start his antiemetics today. He is treating neuropathywith gabapentin, is improving now. I will reduce his chemotherapy dose to manage toxicity. He has lost his hair due to treatment. Updated Visit, November 16, 2023: Sergio returns with Mandy to begin Carbo/Taxol + Nivo. He underwent a bronchoscopy on 10/31 - negative for rowena involvement. Plan for 3 cycles of treatment prior to resection. He is slightly anemic today, will check iron studies on Day 10 with david counts. Initial Visit, October 21, 2023: Erin Pena presents today for a Hematology and Oncology evaluation and second opinion.He is joined by his , Mandy. 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 He completed a PET/CT this morning which shows confined uptake in the left lung without metastatic disease. I recommended chemo+immuno treatment followed by surgery once staging studies are completed. He will also need PFTs to give predictive capacity following a potential resection. He is in agreement to start after staging is complete. Will refer him to Drs. Craig and Afia forsurgical evaluation. 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 Erin's [id number] is Arie Baker, who is my patient also. REVIEW OF SYSTEMS Per HPI and otherwise negative by full review of organ systems. ECOG PERFORMANCE STATUS: 1 PHYSICAL EXAMINATION: Vitals: BP 131/78 Pulse 61 Temp (Src) 98 (Temporal) Resp 16 Ht 5' 5.984 (1.68m) Wt 186 lb 1.1 oz (84.4kg) SpO2 96% BMI 30.05 kg/(m^2). Body surface area is 1.98 meters squared. Exam limited to gross visualization where appropriate. Gen.: This is an age-appropriate patient in no acute distress. Head: Appears atraumatic with no visible lesions. Eyes: Pupils equally round and reactive to light, extraocular muscles are intact. Neck: Supple. Respiratory: Appears to be respiring comfortably. Neurologic: Nonfocal to gross visualization. Alert and oriented 3. Psychiatric: No evidence of inappropriate anxiety or depression. Skin: Visible areas of skin without rash, lesions, wounds or petechiae. ALLERGIES: ALLERGIES Allergen Reactions Sulfa (Sulfonamide * Unknown Unkown, was a child Gabapentin Intolerance Causes Altered mental Status MEDICATIONS: traZODone (DESYREL) 100 mg tablet Take 1 tablet by mouth daily at bedtime. MELOXICAM ORAL Take by mouth. pregabalin (LYRICA) 75 mg capsule Take 75 mg by mouth once daily. clopidogrel (PLAVIX) 75 mg tablet Take 75 mg by mouth once daily. Nicotine Polacrilex (NICORETTE) [address] 4 mg between cheek and gum as needed. methylphenidate (RITALIN) 10 mg tablet Take 1 tablet by mouth two times a day for 30 days. (Patienttaking differently: Take 10 mg by mouth as needed.) Cetirizine 10 mg cap Take 10 mg by mouth once daily. albuterol HFA (PROVENTIL HFA, VENTOLIN HFA) 90 mcg/actuation inhaler Inhale 2 Puffs as instructed every 6 hours as needed. propranolol (INDERAL) 20 mg tablet TAKE 1 TABLET BY MOUTH NEEDED FOR ANXIETY ATTACKS ONCE A DAY terazosin (HYTRIN) 1 mg capsule Take 1 mg by mouth daily at bedtime. metFORMIN (GLUCOPHAGE) 850 mg tablet Take 850 mg by mouth daily with breakfast. losartan (COZAAR) 100 mg tablet Take 100 mg by mouth once daily. krill oil 500 mg cap Take 1 capsule by mouth once daily. hydroCHLOROthiazide 50 mg tablet Take 50 mg by mouth once daily. Glucosamine HCl 500 mg tab Take 1 tablet by mouth once daily. atorvastatin (LIPITOR) 40 mg tablet Take 40 mg by mouth once daily. aspirin, enteric coated (ASPIRIN, ENTERIC COATED) 81 mg EC tablet Take 81 mg by mouth once daily. levothyroxine (SYNTHROID) 175 mcg tablet Take 175 mcg by mouth daily before breakfast. ascorbic acid (VITAMIN C) 500 mg tablet Take 500 mg by mouth once daily. multivitamin tablet Take 1 tablet by mouth once daily. LABORATORY VALUES: WBC (k/uL) Date Value 04/03/2024 8.77 RBC (m/uL) Date Value 04/03/2024 4.07 (L) Hemoglobin (g/dL) Date Value 04/03/2024 11.9 (L) Hematocrit (%) Date Value 04/03/2024 35.4 (L) MCV (fL) Date Value 04/03/2024 87.0 MCH (pg) Date Value 04/03/2024 29.2 MCHC (g/dL) Date Value 04/03/2024 33.6 RDW-CV (%) Date Value 04/03/2024 16.0 (H) Platelet Count (k/uL) Date Value 04/03/2024 259 MPV (fL) Date Value 04/03/2024 10.5 Glucose (mg/dL) Date Value 02/24/2024 122 (H) BUN (mg/dL) Date Value 02/24/2024 14 Creatinine (mg/dL) Date Value 02/24/2024 0.79 Sodium (mmol/L) Date Value 02/24/2024 139 Potassium (mmol/L) Date Value 02/24/2024 3.1 (L) Chloride (mmol/L) Date Value 02/24/2024 97 (L) CO2 (mmol/L) Date Value 02/24/2024 32 (H) Protein, Total (g/dL) Date Value 02/24/2024 6.4 Albumin (g/dL) Date Value 02/24/2024 4.4 Calcium, Total (mg/dL) Date Value 02/24/2024 9.5 Alkaline Phosphatase (U/L) Date Value 02/24/2024 77 Bilirubin, Total (mg/dL) Date Value 02/24/2024 0.2 AST (U/L) Date Value 02/24/2024 17 ALT (U/L) Date Value 02/24/2024 18 DIAGNOSIS: (C34.12) Malignant neoplasm of upper lobe of left lung (HCC) (primary encounter diagnosis) Plan: COMPREHENSIVE METABOLIC PANEL, COMPLETE BLOOD COUNT AND DIFFERENTIAL, HEMOGLOBIN A1C, CORTISOL, SERUM, THYROID STIMULATING HORMONE (R79.9) Abnormal blood chemistry Plan: COMPREHENSIVE METABOLIC PANEL, COMPLETE BLOOD COUNT AND DIFFERENTIAL, HEMOGLOBIN A1C, CORTISOL, SERUM, THYROID STIMULATING HORMONE (R53.81, R53.83) Malaise and fatigue Plan: COMPREHENSIVE METABOLIC PANEL, COMPLETE BLOOD COUNT AND DIFFERENTIAL, HEMOGLOBIN A1C, CORTISOL, SERUM, THYROID STIMULATING HORMONE PAST MEDICAL HISTORY Diagnosis Date Chronic obstructive pulmonary disease (HCC) 10/20/2023 Hypertension Hypothyroidism Lung cancer (HCC) 2023 refBy [place] Other affections of shoulder region, not elsewhere classified 03/14/2012 PAST SURGICAL HISTORY Procedure Laterality Date APPENDECTOMY BRAIN SURGERY HX COLONSCOPY SCREENING HIGH RISK FINGER AMPUTATION (SPECIFY DIGIT) HX HAND SURGERY HX HEMORROIDECTOMY INTERNAL LUNG BIOPSY Left NECK SURGERY HX PAST SURGICAL HISTORY OF Heart cath REMV CATARACT EXTRACAP,INSERT LENS S KIT CRAINIOTOMY [id number] SHOULDER ARTHROSCOPY/SURG TYMPANOSTOMY GENERAL ANESTHESIA XR CERVICAL FUSION OR C4 fusion Social History Tobacco Use Smoking status: Former Current packs/day: 0.00 Average packs/day: 0.5 packs/day for 50.0 years (25.0 ttl pk-yrs) Types: Cigarettes Start date: 09/22/1973 Quit date: 09/23/2023 Years since quittin.5 Passive exposure: Current Smokeless tobacco: Never Tobacco comments: Quit September 26 Vaping Use Vaping status: Former Substance Use Topics Alcohol use: No Drug use: No FAMILY HISTORY Problem Relation Age of Onset Stroke Mother Cancer Mother Heart disease Father Hypertension Father Stroke Paternal Grandmother Anesthesia Problems No Family History I spent a total of 30 minutes on the date of the service which included preparing to see the patient, [id number] patient care, completing clinical documentation, obtaining and/or reviewing separately obtained history, performing a medically appropriate examination, counseling and educating the pat ient/family/caregiver, ordering medications, tests, or procedures, communicating with other HCPs (not separately reported), independently interpreting results (not separately reported), communicatingresults to the patient/family/caregiver, and care coordination (not separately reported). Lo Hancock MD, CPE Hematology and Oncology Services Provided at: [place], [place] Scribe Attestation: This note was scribed by Nieves Smith on April 11, 2024 under the direction and supervision of Dr. Lo Hancock. I attest that all of the information documented is correct to the best of myknowledge. Provider Attestation: I, Lo Hancock MD, attest that all information documented by the above scribe is correct, and was supervised by me and under my direction. CC: Gerald Abdi [id number] [address] Basia Vega MD [address] [facility] [id number] Savanah Oreilly MD documented in this encounterSelect Medical [place] [facility] History of Present illness Narrative* Jack Hoang MD - 04/11/2024 12:00 AM EST ERIN PENA [id number] 04/11/2024 [facility] Department of Radiation Oncology SBRT CT Simulation Diagnosis/Disease: Malignant neoplasm of lower lobe, left bronchus or lungC34.32 Therapist: Liseth Handley Consent: Yes Area: LUNG Procedure: A time-out was conducted and recorded by the therapist. Patient simulated at [facility] for SBRT. Compression device in place, and a 4D CT was conducted. Position: SUPINE Thigh Positioner: 0 With Riser 1 Without Riser 1 Abdominal Cuff: SecureVac Cushion Index to Base @ 65 0 T-Vac Cushion Rt. Side Adjust 201 Tri-Vac Cushion Lt. side Adjust 200 [id number] Pump 18 INHALE Wingboard: Head Pad (B or F) :F Index to Base @ (A-F):C Vertical Height (A-E):E Superior to Inferior: 1.5 Additional Notes: HANDS HOLDING UNDER BARS Immobilization: In order to achieve accurate and reproducible treatments, the patient is to be immobilized with a custom created full body Vacbag device. Contrast: IV PT INJECTED WITH 50CC OMNIPAQUE 300 VIA THE RT WRIST Patient marked. Planning: PET CT fusion for target delineation and normal tissue avoidance. (change notes to document fusions as requested by the physician) Assessment/Plan: Patient tolerated simulation procedure well. Treatments will be initiated after treatment planning. Electronically Signed JACK HOANG M.D. 53:41 AM documented in this encounterSelect Medical [facility] History of Present illness Narrative* Jack Hoang MD - 04/11/2024 12:00 AM EST ERIN PENA [id number] 04/11/2024 [facility] Department of Radiation Oncology Treatment Planning Note For reasons stated in the consult note, Erin Pena is a candidate for radiation therapy. Based on review and interpretation of the relevant diagnostic studies together with the exam findings, Erin Pena was simulated on 04/11/2024 at which time the target volume and/or requisite egan were del ineated, as indicated in the simulation note, to be treated according to the prescription. An ITV was created from all the phases of respiratory motion captured by the 4DCT image sets. Motion management allowed for design of patient specific planning target volume and reduced the radiationexposure to normal tissues. The treatment target and organs at risk were contoured on the simulation scan using the fused PET. Special consideration to these and other structures was given in light of the potential for increased toxicities of stereotactic body radiation therapy (SBRT). Pulmonary function testing was reviewed. After reviewing multiple treatment plans with dosimetry, the best plan was approved to deliver the prescribed course of radiation to the target area using inverse planning to allow for the best isodose distribution, treating to the 75.7% isodose line with 6 MV FFF and 2 egan. Custom MLC for IMRT was the treatment device used to shape/modify the beams. Limiting dose to normal tissue was confirmed upon review of the calculated dose volume histogram. IMRT planning was used because it best met the dose/volume constraints for the organs at risk for this patient, better than what could be achieved using conventional or 3D planning. The specific doserequirements for the PTV, organs at risk and dose-volume histograms are contained in this treatmentplan and/or elsewhere in the medical record. A completed summary of this plan dated 04/30/2024 incorporated herein by reference includes dose, beam arrangements, energy, blocking, isodose distribution, and/or ports and DVH. Electronically Signed Jack Hoang M.D. 59:44 PM documented in this encounterSelect Medical [facility] History of Present illness Narrative* Bina Griffin, DO - 04/09/2024 11:15 AM EST Images from the original note were not included. CC: Chief Complaint Patient presents with Follow-up Testing done- art doppler completed but pt states did not check carotids which pt says they typically due 68 y.o. male w/ COPD, lung cancer, HTN, hypothyroidism, carotid artery stenosis and peripheral arterial disease. Pt last seen in office 02/13/24 (Dr. Conchita Moreira). C/o significant calf pain w/ ambulation. Unable totolerate pletal. Discussed potential intervention (bypass). Continue w/ med mgmt and activity. RTC 3 mo. 04/09/24: Pt presented to office w/ his who was present for entire visit. Continues to follow w/ oncology for lung cancer. Over last 3 months feels RLE claudication has worsened w/ very limited walking distance prior to calf pain. + intermittent nocturnal heel pains. Denies wounds/tissue loss. Continues to try and walk as much as able however very limited. 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[facility]) Hyporeflexia Other affections of shoulder region, not elsewhere classified Hx of fusion of cervical spine Bilateral carotid artery stenosis Claudication ([facility]) Occlusive disease, arterial Left-sided weakness Chronic obstructive pulmonary disease ([facility]) Malignant neoplasm of upper lobe of left lung ([facility]) Mixed hyperlipidemia BP 121/76 Pulse 70 Wt 85.3 kg (188 lb) BMI 30.34 kg/m Past Medical History: Diagnosis Date Carpal tunnel syndrome Hyperlipidemia Hypertension Hypothyroidism Past Surgical History: Procedure Laterality Date APPENDECTOMY 1970 BELPHAROPTOSIS REPAIR BRAIN SURGERY 2015 CARDIAC CATHETERIZATION 2009 CATARACT EXTRACTION 2015 COLONOSCOPY 2016 FINGER AMPUTATION Left 1981 middle digit HAND SURGERY 2010 HEMORROIDECTOMY 1985 NECK SURGERY 1994 c4 fusion and 2001 c5/6 SHOULDER ARTHROSCOPY Left 2013 TYMPANOSTOMY TUBE PLACEMENT 2015 TYMPANOSTOMY TUBE PLACEMENT Left 2014 Physical Exam: Physical Exam Vitals and nursing note reviewed. Constitutional: Appearance: Normal appearance. HENT: Head: Normocephalic and atraumatic. Pulmonary: Effort: Pulmonary effort is normal. Musculoskeletal: General: Normal range of motion. Comments: Moving all ext equally Skin: General: Skin is warm and dry. Neurological: General: No focal deficit present. Mental Status: He is alert and oriented to person, place, and time. Psychiatric: Attention and Perception: Attention normal. Mood and Affect: Mood normal. Speech: Speech normal. Behavior: Behavior is cooperative. Testing Reviewed: CBC with Differential: Lab Results Component Value Date WBC 10.4 09/29/2023 HGB 12.3 (L) 09/29/2023 HCT 36.8 (L) 09/29/2023 PLT 378 09/29/2023 MCV 87 09/29/2023 MCH 28.9 09/29/2023 MCHC 33.4 09/29/2023 RDW 14.4 09/29/2023 BMP: Lab Results Component Value Date SODIUM 136 09/29/2023 K 3.5 09/29/2023 CL 98 09/29/2023 CO2 30 09/29/2023 BUN 10 09/29/2023 CREATININE 0.56 (L) 09/29/2023 EGFR >90 09/29/2023 GLU 119 (H) 09/29/2023 GLU 159 (H) 09/28/2023 Assessment: No diagnosis found. There are no diagnoses linked to this encounter. Plan of care: Please note that total time spent was 30 minutes: Including but not limited to: Preparing to see the patient (e.g., review of tests) Obtaining and/or reviewing separately obtained history Performing a medically appropriate examination and evaluation Counseling and educating the patient/family/caregiver Ordering medications, tests, or procedures Documenting visit details There are no diagnoses linked to this encounter. Erin Pena is a 68 y.o. White or male with h/o COPD, lung cancer, HTN, hypothyroidism, carotid artery stenosis and peripheral arterial disease. Asymptomatic carotid artery disease: CTA 09/2023: R- CCA/ICA chronic occlusion; L - <50% ICA stenosis No indication for surgical intervention unless symptomatic w/ >50% stenosis or asymptomatic w/ disease progression >70-80% Continue w/ medical mgmt Surveillance plan: repeat carotid duplex yearly to monitor for disease progression. Next due 09/2024. Peripheral arterial disease: w/ short distance claudication Testing summary: CTA abd aorta w/ runoff 09/26/23: R - SFA occlusion, L - SFA occlusion vs stenosis CARLI/PVR 04/10/24: R- 0.40, L - 0.39 Long discussion held regarding short distance claudication and treatment options including continued medical mgmt vs angiogram w/ possible intervention vs bypass. Previously did not tolerate pletal At this time pt wants to continue w/ conservative medical mgmt, risk factor modification, and attempt activity. If symptoms worsen, wounds, rest pain etc would then plan for angiogram w/ possible intervention. Medical mgmt: Anti-platelet: ASA, plavix Statin: lipitor 40mg daily Return to office in 3-6 mo to review persistent symptoms and discuss further plan of care. Pt to notify office immediately w/ any progressive symptoms, wounds, etc. SIGNATURE: Bina Griffin DO CC: MD Karyn PEREZ Marc, MD documented in this encounterNationwide [facility]-28-[facility] History of Present illness Narrative* Wendy Loo RN - 04/03/2024 9:30 AM EST Radiology Service Progress Note DATE OF SERVICE: April 03, 2024 TIME: 9:51 AM PATIENT WEIGHT: 185LBS PATIENT IDENTITY VERIFICATION COMPLETED USING TWO (2) STANDARD IDENTIFIERS: Name and Date of confirmed by patient verbally. FALL SCREENING: Has the patient had 2 falls in the last year or 1 fall with injury or currently using an Ambulatory Assistive Device (Walker, Cane, Wheelchair, Crutches, etc.)? No PATIENT GENDER DATA: Assigned male at ALLERGIES: Reviewed and unchanged CONTRAST ALLERGY: No EXAM: CT -CONTRAST INDUCED NEPHROPATHY RISK FACTORS: Not applicable CREATININE: Creatinine Date Value Ref Range Status 02/24/2024 0.79 0.73 - 1.22 mg/dL Final 01/25/2024 0.72 (L) 0.73 - 1.22 mg/dL Final 12/28/2023 0.72 (L) 0.73 - 1.22 mg/dL Final Estimated Glomerular Filtration Rate Date Value Ref Range Status 02/24/2024 97 >=60 mL/min/1.73m Final Comment: Estimated Glomerular Filtration Rate (eGFR) is calculated using the 2020 CKD-EPI creatinine equation. This equation utilizes serum creatinine, sex, and age as parameters. The creatinine assay has traceable calibration to isotope dilution- mass spectrometry. Refer to KDIGO guidelines for clinical interpretation. In patients with unstable renal function, e.g. those with acute kidney injury, the eGFRmay not accurately reflect actual GFR. P.O.C.T. RESULTS: POC done: Yes, See Lab Tab April 03, 2024 TREATMENT: N/A IV SITE: Ambulatory: A peripheral IV was started in the Left hand with a Angio cath: 22 gauge. IV SITE APPEARANCE: Clean,Dry and Intact SIGNATURE: Wendy Loo RN PATIENT NAME: Erin Pena DATE: April 03, 2024 TIME: 9:51 AM * Noemy Schumacher RT(R) - 04/03/2024 9:30 AM EST RADIOLOGY SERVICE PROGRESS NOTE SERVICE DATE: 04/03/2024 SERVICE TIME: 10:09 AM PATIENT IDENTITY VERIFICATION COMPLETED USING TWO (2) STANDARD IDENTIFIERS: Name and Date of confirmed by patient verbally FALL SCREENING: Has the patient had 2 falls in the last year or 1 fall with injury or currently using an Ambulatory Assistive Device (Walker, Cane, Wheelchair, Crutches, etc.)? No PATIENT GENDER DATA: .male ALLERGIES: Reviewed and unchanged MEDICATIONS REVIEWED: Not applicable PATIENT RELEVANT IMPLANT DATA REVIEWED: Not Applicable PATIENT PRESENTS WITH AN IMPLANTABLE OR ATTACHED UNEMPLOYMENT BENEFITS CLAIMS TAKER: No CREATININE: Creatinine Date Value Ref Range Status 02/24/2024 0.79 0.73 - 1.22 mg/dL Final 01/25/2024 0.72 (L) 0.73 - 1.22 mg/dL Final 12/28/2023 0.72 (L) 0.73 - 1.22 mg/dL Final Estimated Glomerular Filtration Rate Date Value Ref Range Status 02/24/2024 97 >=60 mL/min/1.73m Final Comment: Estimated Glomerular Filtration Rate (eGFR) is calculated using the 2020 CKD-EPI creatinine equation. This equation utilizes serum creatinine, sex, and age as parameters. The creatinine assay has traceable calibration to isotope dilution- mass spectrometry. Refer to KDIGO guidelines for clinical interpretation. In patients with unstable renal function, e.g. those with acute kidney injury, the eGFRmay not accurately reflect actual GFR. P.O.C.T. RESULTS: POC done: Yes, See Lab Tab April 03, [address] PERFORMED: No IV SITE: Ambulatory: A peripheral IV was started in the Right hand with a Angio cath: 20 gauge. POST EXAM PIV STATUS: Discontinued PROCEDURE TYPE: NM INJECT: PET/CT BODY SCAN. 8.3 mCi F18 FDG. No other medications given.. ADMINISTRATION TIME: 0945 PATIENT DISCHARGED TO: Ambulatory patient, left [place] department area. Is this a therapy: No A Diagnostic radioactive procedure has taken place, with no further precautions necessary other than routine body substance precautions. More information regarding radiation safety can be found usingthis link: [email or web address] SIGNATURE: RT Stephanie(R) PATIENT NAME: Erin Pena DATE: April 03, 2024 TIME: 10:09 AM PAGER/CONTACT #: documented in this encounterSelect Medical [facility] NoteSt[facility]01-28-2025 [facility]01-17-2025 Instructions* Patient Instructions* Joey Scott APRN.CNP - 03/23/2024 3:12 PM EST Joey Scott CNP Department of Palliative and Supportive Care Palliative Care - Specialty services in symptom management and support For questions or prescription refills, call: [phone] Tuesday - Tuesday 9AM-5PM KRISTINA Alba, RN - Data Integrity Analyst Please call 3-5 days in advance for medication refills Evenings, Weekends, Holidays: [phone] (ask for palliative medicine on-call provider) For appointments, cancellations or reschedule, call: [phone] documented in this encounterSelect Medical Cleveland [facility] History of Present illness Narrative* Joey Scott APRN.CNP - 03/23/2024 2:30 PM EST PALLIATIVE MEDICINE PROGRESS NOTE SERVICE DATE: 03/23/2024 CHIEF COMPLAINT: Neoplasm Related Pain PERTINENT MEDICAL HISTORY: Erin Pena is a 68 year old male with 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 Comleted neoadjuvant chemo / IO late December 2023. Unfortunately does not appear to be a good candidate for surgery and is exploring SBRT vs. Chemo/RT followed by immunotherapy. Subjective I met with Sergio and his in clinic, he is alert oriented x 3 no acute distress. Long-term chronic pain patient managed by his PCP pain has increased some since starting chemotherapy but it is still managed to his satisfaction with current medication regimen and he would like to stay with his primary care to control his pain. He switched to lyrica as he felt Gabapentin was, messing with my head . He feels it I helpful forneuropathy and he is tolerating it better.Starting ALA and vitamin b12 Appetite is good, in fact he has gained weight, no edema or increased shortness of breath. No constipation or diarrhea. Positive intermittent nausea controlled with Zofran Uses Ritalin sparingly, provided by oncology Modified ESAS ([place] Symptom Assessment Scale) Information Provided By: Patient and Family member Pain: Mild Nausea: None Loss of Appetite: None Constipation: Mild Shortness of Breath: Mild Drowsiness: None Tiredness: None Depression: None Anxiety: None Objective ECOG PERFORMANCE STATUS: 1- Restricted in physically strenuous activity. Carries out light duty. PHYSICAL EXAMINATION: Vital signs: There were no vitals taken for this visit. Last 1 Encounter Temp Readings: Date: Temp: Temp Src: 03/12/2024 36.3 C (97.4 F) Last 1 Encounter Resp Readings: Date: Resp: 03/12/2024 18 Last 1 Encounter Pulse Readings: Date: Pulse: 03/12/2024 71 Last 1 Encounter BP Readings: Date: BP: 03/12/2024 148/79 Physical Exam Constitutional: Appearance: He is well-groomed. HENT: Head: Normocephalic and atraumatic. Jaw: There is normal jaw occlusion. Right Ear: Hearing and external ear normal. Left Ear: Hearing and external ear normal. Nose: Nose normal. Mouth/Throat: Lips: [place]. Mouth: Mucous membranes are moist. No oral lesions. Eyes: General: Lids are normal. Gaze aligned appropriately. Extraocular Movements: Extraocular movements intact. Conjunctiva/sclera: Conjunctivae normal. Neck: Thyroid: No thyroid mass. Pulmonary: Effort: Pulmonary effort is normal. Musculoskeletal: General: No swelling, tenderness or deformity. Normal range of motion. Right shoulder: Normal. Left shoulder: Normal. Right upper arm: Normal. Left upper arm: Normal. Cervical back: Full passive range of motion without pain. Right lower leg: No edema. Left lower leg: No edema. Skin: General: Skin is warm and dry. Capillary Refill: Capillary refill takes less than 2 seconds. Findings: No rash. Neurological: General: No focal deficit present. Mental Status: He is alert and oriented to person, place, and time. Psychiatric: Attention and Perception: Attention normal. Mood and Affect: Mood normal. Speech: Speech normal. Behavior: Behavior normal. Behavior is cooperative. Thought Content: Thought content normal. Cognition and Memory: Cognition and memory normal. Judgment: Judgment normal. DATA: Diagnostic tests reviewed for today's visit: Most recent labs and imaging results. Estimated Creatinine Clearance: 91.5 mL/min (based on SCr of 0.79 mg/dL). 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) Malignant neoplasm of upper lobe of left lung (HCC) (D49.9, G13.0) Paraneoplastic neuropathy (HCC) - Increase Gabapentin to 200 mg po at bedtime - Continue working with current pain provider for [place] - Can also use Tylenol for mild pain but be aware of Tylenol amount of [place] to keep 24-hour dosageunder 3000 mg (R11.0) Nausea - Can also use Tylenol for mild pain but be aware of Tylenol amount of [place] to keep 24-hour dosageunder 3000 mg (G47.01) 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 condition - trazodone to 100 mg at bedtime (F41.9) Anxiety - Trazodone 100 mg po at hs Fatigue Ritalin 10 mg po daily Exercise as tolerated Increase protein in diet Some elements copied from my note on 12/23/23, the elements have been updated and all reflect current decision making from today, 03/23/2024. Existence of Advance Directives: Yes, documentation or copy in medical record Next Visit: 6-8 Weeks in person Joey Scott MATERIAL EXPEDITER, WOOL SHEARER.SACK CLEANING HAND March 23, 2024 2:22 PM I spent a total of 35 minutes on the date of the service which included preparing to see the patient, [id number] patient care, completing clinical documentation, obtaining and/or reviewing separately obtained history, performing a medically appropriate examination, counseling and educating the pat ient/family/caregiver, ordering medications, tests, or procedures, communicating with other HCPs (not separately reported), independently interpreting results (not separately reported), communicatingresults to the patient/family/caregiver, and care coordination (not separately reported). This note may have been partially generated using the Track[employer] voice recognition system. While every effort was made to correct voice recognition errors, kindly be aware that some errors may occasionally occur. documented in this encounterSelect Medical Cleveland [facility] NoteSt[address] [facility] Hospital01-13-2025 Telephone encounter Note* Telephone Encounter - Brittni Morrell - 03/19/2024 8:19 AM EST Confirmed with patient appts on 04/11 for De and follow up with BOBBY. Patient confirmed date and times. [facility]01-13-2025 Miscellaneous Notes* Telephone Encounter - Brittni Morrell - 03/19/2024 8:19 AM EST Confirmed with patient appts on 04/11 for De and follow up with BOBBY. Patient confirmed date and times. * Telephone Encounter - Deandra Handley RT(R) - 03/19/2024 7:15 AM EST Patient scheduled for 04/11/24 PSS- Please schedule on 04/11 11:00 follow up/ pre sim consent with LANCE 11:30 add sim to PET/CT schedule Sim SBRT lung IV contrast 1:00 Dr. Waggoner for follow up Please notify patient of appointments and arrival time of 10:45 no special instructions Thanks RT Royal(R) * Telephone Encounter - Cheyenne Olson - 03/16/2024 3:10 PM EST PET has been scheduled for 04/03/24. Patient is aware. Cheyenne Olson PSS * Telephone Encounter - Noemy Chicas RN - 03/16/2024 12:00 PM EST Clerical/XRT: Pt called to follow up on status of appointments. Please reach out to pt when scheduled. Thanks! Noemy Chicas RN * Telephone Encounter - Lo Hancock MD - 03/15/2024 3:42 PM EST I'd like to see him after Radiation appointment * Telephone Encounter - Lenora Sotelo RN - 03/15/2024 2:43 PM EST PSS- please work with Rad therapy to schedule follow up after pet. (See below regarding need to schedule this). Follow up should be day with availability to add on a Sim if needed. Thank you Lenora Sotelo RN * Telephone Encounter - Lenora Sotelo RN - 03/14/2024 2:[address] Hoang- would you like Simulation scheduled as well? Should this be after PET? Please advise. Lenora Sotelo RN * Telephone Encounter - Noemy Chicas RN - 03/14/2024 2:17 PM EST Pt has decided to proceed w/ radiation rather than surgery. Clerical: Pt will need PET as noted below per LANCE. Ang/Rupinder: Please advise on additional follow ups. Bobby: When would you like to see pt again? Dr Orielly: FYI... Noemy Chicas RN * Telephone Encounter - Noemy Chicas RN - 03/14/2024 7:47 AM EST Order placed for PET if he wishes to proceed with definitive radiation therapy, Thanks! Jack * Telephone Encounter - Noemy Chicas RN - 03/13/2024 11:32 AM EST FYI: Pt calls to report that he's leaning towards radiation rather than surgery. Plans to make a decision tomorrow. Will call our office w/ update once he decides. Noemy Chicas RN documented in this encounterSelect Medical [facility] Telephone encounter Note * Telephone Encounter - Deandra Handley RT(R) - 03/19/2024 7:15 AM EST Patient scheduled for 04/11/24 PSS- Please schedule on 04/11 11:00 follow up/ pre sim consent with LANCE 11:30 add sim to PET/CT schedule Sim SBRT lung IV contrast 1:00 Dr. Waggoner for follow up Please notify patient of appointments and arrival time of 10:45 no special instructions Thanks Deandra Handley RT(R) [facility]01-10-2025 Telephone encounter Note* Telephone Encounter - Cheyenne Olson - 03/16/2024 3:10 PM EST PET has been scheduled for 04/03/24. Patient is aware. Cheyenne Olson PSS [facility]01-10-2025 Telephone encounter Note* Telephone Encounter - Noemy Chicas RN - 03/16/2024 12:00 PM EST Clerical/XRT: Pt called to follow up on status of appointments. Please reach out to pt when scheduled. Thanks! Noemy Chicas RN [facility] Work Phone: [phone] Telephone encounter Note* Telephone Encounter - Lo Hancock MD - 03/15/2024 3:42 PM EST I'd like to see him after Radiation appointment [facility]01-09-2025 Telephone encounter Note* Telephone Encounter - Lenora Sotelo RN - 03/15/2024 2:43 PM EST PSS- please work with Rad therapy to schedule follow up after pet. (See below regarding need to schedule this). Follow up should be day with availability to add on a Sim if needed. Thank you Lenora Sotelo RN [address] [facility] Telephone encounter Note* Telephone Encounter - Lenora Sotelo RN - 03/14/2024 2:[address] Hoang- would you like Simulation scheduled as well? Should this be after PET? Please advise. Lenora Sotelo RN [facility]01-08-2025 Telephone encounter Note* Telephone Encounter - Noemy Chicas RN - 03/14/2024 2:17 PM EST Pt has decided to proceed w/ radiation rather than surgery. Clerical: Pt will need PET as noted below per LANCE. Ang/Rupinder: Please advise on additional follow ups. Bobby: When would you like to see pt again? Dr Oreilly: FYI... Noemy Chicas RN [facility]01-08-2025 Telephone encounter Note* Telephone Encounter - Noemy Chicas RN - 03/14/2024 7:47 AM EST Order placed for PET if he wishes to proceed with definitive radiation therapy, Thanks! Jack [facility]01-07-2025 Telephone encounter Note* Telephone Encounter - Noemy Chicas RN - 03/13/2024 11:32 AM EST FYI: Pt calls to report that he's leaning towards radiation rather than surgery. Plans to make a decision tomorrow. Will call our office w/ update once he decides. Noemy Chicas RN [facility]01-06-[facility] History of Present illness Narrative* Jack Hoang MD - 03/12/2024 11:54 PM EST Images from the original note were not included. Radiation Oncology - New Patient/Consult Note PATIENT NAME: Erin Pena PATIENT Signed: Jack Hoang MD I spent a total of 60 minutes on the date of the service which included preparing to see the patient, [id number] patient care, and counseling and educating the patient/family/caregiver. This document has been created with the use of voice recognition technology. It may contain inaccuracies, misspellings, inaccurate syntax or inappropriate word context that are a result of the inadequacies/shortcomings of said technology/software. * Lenora Sotelo RN - 03/12/2024 12:57 PM EST Pacemaker/Defibrillator? No Previous Cancer(s)? No Previous Radiation? No Lupus/Scleroderma? No On body monitoring device? No Lenora Sotelo RN documented in this encounter[facility] History of Present illness Narrative* Robert King NP - 03/08/2024 10:15 AM ESTAssociated Order(s): L Inj/Asp: R greater trochanteric bursa Post-Procedure Diagnose(s): Trochanteric bursitis of right hip Images from the original note were not included. Chief Complaint Patient presents with Right Hip - Follow-up HISTORY OF PRESENT ILLNESS: Erin Pena is an 68 y.o. @ male. LAST TX 01/03/[address] HOLLAND; VOLTAREN WAS RECOMMENDED. (EST PT) RT HIP PAIN 06/2023. LAST BURSA INJ 09/27/23 XRAY EPIC 07/26/23 CT PELVIS [facility] 07/31/23 MRI RT HIP AND LUMBAR EPIC 08/09/23 CORTISONE INJECTION 07/19/23, 07/26/23, 09/27/23 PREDNISONE 07/2023 PHYSICIAN DIRECTED HEP HX 2 PRIOR LUMBAR SX. R HIP PAIN. 5/10 ON PAIN SCALE. DULL/ACHING PAIN. TAKING MELOXICAM AND VICODIN. NOTES THAT THERE ISPOPPING AND GRINDING. NO PHYSICAL THERAPY DUE TO CHEMO. HX OF LUNG CANCER. PAIN IS WAKING PT AT NIGHT. STATES THAT IT IS THE WORSE AT NIGHT TIME. SLIGHT N/T BUT DOES HAVE A HX OF NEUROPATHY. PAIN IS NOT BAD WHEN SITTING. WALKING IS SOMETIMES AN ISSUE. NOT WALKING WITH ANY AIDE TODAY. RECENTLY DX WITH LUNG CANCER, STARTED CHEMO 11/16/23, ALSO HAD TIA. ALLERGIES: Allergies Allergen Reactions Spiriva Respimat [Tiotropium [place] Monohydrate] Shortness of breath Pt reported having increased shortness of breath after trying med 1 time. Sulfa Antibiotics Unknown and Rash Unkown, was a child Gabapentin Other HOME MEDICATIONS: Current Outpatient Medications Medication Instructions albuterol HFA 90 mcg/act inhaler 2 puffs, Every 6 hours PRN ascorbic acid (VITAMIN C) 500 mg, Daily RT aspirin 81 mg, Daily RT atorvastatin (LIPITOR) 40 mg, Oral, Daily cetirizine (ZYRTEC) 10 mg, Daily RT cholecalciferol (VITAMIN D-3) 500 Units, Daily RT diazePAM (VALIUM) 5 mg, Oral, 3 times daily PRN Glucosamine 750 MG tablet Daily hydroCHLOROthiazide (HYDRODIURIL) 50 mg, Oral, Every morning HYDROcodone-acetaminophen ([place]) 7.5-325 MG tablet 1 tablet, Oral, 4 times daily PRN Krill Oil ([place]-3) 500 MG capsule Take by mouth. losartan (COZAAR) 100 mg, Oral, Daily meloxicam (Mobic) 7.5 MG tablet Take by mouth methylphenidate CD (METADATE CD) 10 mg, Every morning Multiple Vitamin (Multi-Vitamin) tablet 1 tablet, Daily RT nicotine (Nicoderm, Step 1) 21 MG/24HR patch 1 patch, Transdermal, Every 24 hours omeprazole OTC (PRILOSEC OTC) 20 mg, Daily before breakfast ondansetron (ZOFRAN) 8 mg, Every 8 hours PRN potassium chloride CR (Klor-Con) 8 MEQ ER tablet 8 mEq, Daily pregabalin (LYRICA) 75 mg, Oral, 2 times daily prochlorperazine (COMPAZINE) 10 mg, Every 6 hours PRN propranolol (Inderal) 20 MG tablet TAKE 1 TABLET BY MOUTH NEEDED FOR ANXIETY ATTACKS ONCE A DAY sildenafil (VIAGRA) 100 mg, Oral, Daily PRN Synthroid 175 MCG tablet TAKE 1 TABLET (175 MCG) BY MOUTH IN THE MORNING. TAKE BEFORE MEALS. terazosin (Hytrin) 1 MG capsule TAKE 1 CAPSULE BY MOUTH EVERYDAY AT BEDTIME traZODone (DESYREL) 100 mg, Oral, Nightly Vitamin E 20 Units, Daily RT REVIEW OF SYSTEMS: General: Denies fever, fatigue or weight loss Skin: Denies rash, sores or skin changes Eyes: Denies visual disturbance or pain GI: Denies indigestion or abdominal pain Neuro: Denies numbness or tingling, denies new onset paralysis Musculoskeletal: ( see note) PHYSICAL EXAM: Hip Musculoskeletal Exam Gait Gait is normal. Inspection Leg length disparity: no discrepancy Right Erythema: none Ecchymosis: none Edema: none Deformity: none Palpation Right Right hip palpation is normal. Increased warmth: none Tenderness: present Greater trochanteric region pain: moderate Range of Motion Right Right hip range of motion is within functional limits. Active ROM: normal. Passive ROM: normal. Strength Right Right hip strength is normal. Extension: 5/5. Flexion: 5/5. Internal rotation: 5/5. External rotation: 5/5. Adduction: 5/5. Abduction: 5/5. Abduction is affected by pain. Neurovascular Right Right hip neurovascular exam is normal. Pulses - PT: normal Posterior tibial: 2+ General Constitutional: appears stated age Labored breathing: no Psychiatric: normal mood and affect Neurological: alert and oriented x3 Skin: intact Lymphadenopathy: none Vitals: Body mass index is 31.31 kg/m . IMAGING: ASSESSMENT: ICD-10-CM 1. Trochanteric bursitis of right hip M70.61 2. Right hip pain M25.551 L Inj/Asp: R greater trochanteric bursa on 03/08/2024 12:35 PM Indications: pain Details: 21 G needle, lateral approach Medications: 40 mg methylPREDNISolone acetate 40 MG/ML Outcome: tolerated well, no immediate complications UTILIZING ASEPTIC TECHNIQUE PT GIVEN INJECTION IN RIGHT HIP BURSA NEUROVASC INTACT S/P INJ, TOLERATED WELL Procedure, treatment alternatives, risks and benefits explained, specific risks discussed. Consent was given by the patient. PLAN: I reviewed exam findings with the patient and discussed treatment options, answered questions. I discussed with the patient the option of an injection. I advised the patient of risks associated with an injection including a reaction to medication, infection, failure to improve and possible worsening. The patient demonstrated understanding and stated that his oncologist did ok him to have cortisone injection for right hip bursitis. Patient requesting injection. Skin Cleansed with alcohol swab. Utilizing aseptic technique patient given 40mg Depomedrol was injected. Patient tolerated this well. Neurovasc intact s/p injection. Post injection care instructions discussed. He will follow up if havi ng no improvement or worsening pain. Questions answered in laymen terms at the bedside. The diagnosis, home exercise plan and any ongoing restrictions/ recommendations reviewed. If unable to be reached in office, I recommend evaluation at nearest Emergency Room if any symptoms worsened or new symptoms develop for requiring urgent evaluation. Robert King [employer] documented in this encounterSaint Luke's North Hospital–Barry [id number] History of Present illness Narrative* Gary Owen MD - 03/05/2024 10:30 AM EST Erin Figueroajenny Date of visit: 03/05/2024 Date of : 1955 Age: 68 y.o. 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[facility]) Hyporeflexia Other affections of shoulder region, not elsewhere classified Essential hypertension Hypothyroidism Hx of fusion of cervical spine Bilateral carotid artery stenosis Claudication ([facility]) Occlusive disease, arterial Right internal carotid occlusion Left-sided weakness Lung mass Chronic obstructive pulmonary disease ([facility]) Malignant neoplasm of upper lobe of left lung ([facility]) Allergies Allergen Reactions Sulfa (Sulfonamide Antibiotics) Current Outpatient Medications Medication Sig Dispense Refill albuterol (PROVENTIL HFA;VENTOLIN HFA) 90 mcg/actuation inhaler Inhale 2 puffs every 6 (six) hours as needed for wheezing. 18 g 11 ascorbic acid (VITAMIN C) 500 mg tablet Take 1 tablet (500 mg total) by mouth in the morning. aspirin 81 mg TAKE 1 TABLET (81 MG TOTAL) BY MOUTH IN THE MORNING 90 tablet 1 atorvastatin (LIPITOR) 40 mg tablet Take 1 tablet (40 mg total) by mouth in the morning. cetirizine (ZyrTEC) 10 mg tablet Take 1 tablet (10 mg total) by mouth in the morning. cholecalciferol (VITAMIN D3) 1,000 units tablet Take 1 tablet (1,000 Units total) by mouth in the morning. clopidogreL (PLAVIX) 75 mg tablet TAKE 1 TABLET BY MOUTH EVERY DAY IN THE MORNING 90 tablet 1 gabapentin (NEURONTIN) 100 mg capsule Take 1 capsule (100 mg total) by mouth once daily at bedtime.Pt is only taking one tablet a day. hydroCHLOROthiazide (HYDRODIURIL) 50 mg tablet Take 1 tablet (50 mg total) by mouth daily. HYDROcodone-acetaminophen (XODOL) 7.5-300 mg per tablet Take 1 tablet by mouth every 6 (six) hours as needed for pain. krill oil 500 mg capsule Take by mouth. losartan (COZAAR) 100 mg tablet Take 1 tablet (100 mg total) by mouth in the morning. metFORMIN (GLUCOPHAGE) 850 mg tablet Take 1 tablet (850 mg total) by mouth Daily after lunch. 60 tablet 0 multivit-minerals/ferrous fum (MULTI VITAMIN ORAL) Take by mouth. d3 100u and e 180 daily pregabalin (LYRICA) 75 mg capsule Take 1 capsule (75 mg total) by mouth in the morning. propranoloL (INDERAL) 20 mg tablet Take 1 tablet (20 mg total) by mouth 3 (three) times a day. SYNTHROID 175 mcg tablet Take 1 tablet (175 mcg total) by mouth in the morning. 1 terazosin (HYTRIN) 1 mg capsule Take 1 capsule (1 mg total) by mouth nightly. tiotropium bromide (SPIRIVA RESPIMAT) 2.5 mcg/actuation mist Inhale 2 puffs in the morning. 4 g 12 vitamin E 100 units capsule Take 4 capsules (400 Units total) by mouth in the morning. 20 IU . No current facility-administered medications for this visit. Chief Complaint Patient presents with New Patient Pre-op Exam MATERIAL EXPEDITER REFERRAL PRE OP CLEARANCE DR SAVANAH OREILLY [facility] FAX [phone] TBD, MALIGNANTNEOPLASM OF UPPER LOBE OF LEFT LUNG, [facility] SEPTEMBER OF 2023, NO DEVICES, SCHED W/PT STRESS, ECHO [facility] History of Present Illness I had the opportunity to meet this 68-year-old who presented for preoperative risk evaluation priorto anticipated lobectomy for malignant neoplasm of lung He is considering this surgery versus direct beam radiation He has chronic low level left-sided chest pain that does not change with exertion. He has chronic shortness of breath. 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 He is accompanied by his CV TESTING HISTORY: ECHO: Echo complete W/O contrast Result Date: 02/27/2024 Left Ventricle: Left ventricle appears normal in size. Systolic function is normal with an ejectionfraction of 60-65%. The quantitative EF by 2D Sparks biplane is 64%. Normal diastolic function is present. Right Ventricle: Right ventricular size appears normal. Systolic function is normal. There is no significant valvular stenosis or regurgitation. Echo complete W/O contrast Result Date: 09/28/2023 Left Ventricle: Left ventricle appears normal in size. Systolic function is normal with an ejectionfraction of 55-60%. There is no diastolic dysfunction and normal left atrial pressure. Lateral E' is 9.79 cm/s. Medial E' is 8.49 cm/s. Average E' is 10.0 cm/s. STRESS: Nuc stress Lexiscan Result Date: 02/27/2024 No ECG evidence of ischemia. Myocardial perfusion is normal. This is a low risk study. HOLTER: No results found. CARDIAC CATH: No results found. CAROTID: Vas carotid duplex bilateral Result Date: 06/14/2023 Previous: Previous carotid duplex exam performed 05/17/2022; Right: ICA and CCA occlusion: Left: <50% ICA stenosis. Right: Isoechoic intraluminal CCA and ICA content without spectral or color-flow Doppler. Antegrade vertebral artery flow. Left: Plaque with no significant ICA spectral Doppler or color flow disturbances; ICA 121/44 cm/sec. Antegrade vertebral artery flow. Conclusions: RIGHT: Duplex data consistent with occlusion of the common carotid and internal carotid artery. Antegrade vertebral artery flow. LEFT: Plaque without significant stenosis (<50%) of the internal carotid artery. Antegrade vertebral artery flow. When compared to previous report no significant changes were noted. Vas carotid duplex bilateral Result Date: 05/17/2022 Previous: Previous carotid duplex exam performed 10/27/2021; Right: ICA and CCA occlusion: Left: <50% ICA stenosis. Right: Isoechoic intraluminal CCA and ICA content without spectral or color-flowDoppler. Antegrade vertebral artery flow. Left: Plaque with no significant ICA spectral Doppler or color flow disturbances; ICA 105/39 cm/sec. Antegrade vertebral artery flow. Conclusions: RIGHT: Duplex data consistent with occlusion of the common carotid artery. Duplex data consistent with occlusion of the internal carotid artery. Antegrade flow is demonstrated in the proximal right external carotid artery. Antegrade vertebral artery flow. LEFT: Plaque without significant stenosis (<50%) ofthe internal carotid artery. Antegrade vertebral artery flow. Recommendations: Any questions prior to finalization, please call the reading physician during normal business hours at the phone number beside their name. CXR: No results found. Lipid Profile: Lab Results Component Value Date Cholesterol 131 (L) 09/28/2023 Cholesterol:HDL Ratio 2.6 09/28/2023 HDL 54 12/27/2014 HDL Cholesterol 50 09/28/2023 HDL interpretation 12/27/2014 RISK FAVORABLE AVERAGE INCREASED MEN >55 MG/DL 35-55 MG/DL < 35 MG/DL FEMALE >65 MG/DL 45-65 MG/DL < 45 MG/DL Triglycerides 169 (H) 09/28/2023 Triglycerides 252 (H) 12/27/2014 LDL 49 12/27/2014 LDL (calc) 47 09/28/2023 LDL interp 12/27/2014 RECOMMENDED: <130 MG/DL MODERATE RISK: 130-159 MG/DL HIGH RISK: >160 MG/DL Past Medical History: Diagnosis Date Carpal tunnel syndrome Hyperlipidemia Hypertension Hypothyroidism Past Surgical History: Procedure Laterality Date APPENDECTOMY 1970 BELPHAROPTOSIS REPAIR BRAIN SURGERY 2015 CARDIAC CATHETERIZATION 2009 CATARACT EXTRACTION 2015 COLONOSCOPY 2016 FINGER AMPUTATION Left 1981 middle digit HAND SURGERY 2010 HEMORROIDECTOMY 1985 NECK SURGERY 1994 c4 fusion and 2001 c5/6 SHOULDER ARTHROSCOPY Left 2012 TYMPANOSTOMY TUBE PLACEMENT 2015 TYMPANOSTOMY TUBE PLACEMENT Left 2014 Family History Problem Relation Age of Onset Stroke Mother Heart disease Father Hypertension Father Social History Socioeconomic History Marital status: Spouse name: Not on file Number of children: Not on file Years of education: Not on file Highest education level: Not on file Occupational History Not on file Tobacco Use Smoking status: Former Current packs/day: 0.00 Average packs/day: 0.8 packs/day for 50.6 years (37.9 ttl pk-yrs) Types: Cigarettes Start date: 1973 Quit date: 09/29/2023 Years since quittin.4 Smokeless tobacco: Never Vaping Use Vaping status: Never Used Substance and Sexual Activity Alcohol use: Yes Comment: moderate Drug use: Never Sexual activity: Defer Other Topics Concern Caffeine Use Yes Social History Narrative Not on file Social Drivers of Health Financial Resource Strain: Low Risk (04/19/2023) Received from [facility] Overall Financial Resource Strain (CARDIA) Difficulty of Paying Living Expenses: Not hard at all Food Insecurity: No Food Insecurity (03/05/2024) Hunger Screening Food Insecurity - Worry: Never True Food Insecurity - Inability: Never True Transportation Needs: No Transportation Needs (09/27/2023) PRAPARE - Transportation Lack of Transportation (Medical): No Lack of Transportation (Non-Medical): No Physical Activity: Insufficiently Active (04/19/2023) Received from [facility] Exercise Vital Sign Days of Exercise per Week: 3 days Minutes of Exercise per Session: 30 min Stress: Patient Declined (04/19/2023) Received from [facility] [employer] - Occupational Stress Questionnaire Feeling of Stress : Patient declined Social Connections: Unknown (04/19/2023) Received from [facility] Social Connection and Isolation Panel [NHANES] Frequency of Communication with Friends and Family: Three times a week Frequency of Social Gatherings with Friends and Family: Once a week Attends [employer] Services: More than 4 times per year Active Member of Clubs or Organizations: Patient declined Attends Club or Organization Meetings: Patient declined Marital Status: Interpersonal Safety: Not At Risk (09/27/2023) Humiliation, Afraid, Rape, and Kick questionnaire Fear of Current or Ex-Partner: No Emotionally Abused: No Physically Abused: No Sexually Abused: No Housing Instability: Low Risk (09/27/2023) Housing Instability Housing Instability: No Review of Systems Review of Systems Constitutional: Positive for malaise/fatigue. HENT: Negative. Eyes: Negative. Cardiovascular: Positive for chest pain. Vascular: Negative. Respiratory: Positive for shortness of breath. Endocrine: Negative. Hematologic/Lymphatic: Negative. Skin: Negative. Musculoskeletal: Positive for joint pain. Gastrointestinal: Negative. Genitourinary: Negative. Neurological: Positive for dizziness, headaches, light-headedness, loss of balance and numbness. Psychiatric/Behavioral: Negative. Allergic/Immunologic: Positive for environmental allergies. CARDIOVASCULAR: Please review HPI. Physical Examination General appearance: Alert, oriented and cooperative. In no acute distress. Pleasant Skin: Warm and dry to touch. Respiratory: Bilateral diminished Cardiovascular: RRR with normal S1 and S2 with no murmurs. Musculoskeletal: No peripheral edema. VITAL SIGNS: BP 136/68 (BP Site: Left Arm, BP Postition: Sitting) Pulse 85 Ht 167.6 cm (5' 6 ) Wt 86.6 kg (191 lb) SpO2 96% BMI 30.83 kg/m No orders of the defined types were placed in this encounter. There are no discontinued medications. IMPRESSIONS/PLAN 1. Malignant neoplasm of upper lobe of left lung ([facility] [place] [place] 1. Primary hypertension, controlled 2. Hyperlipidemia --atorvastatin --labs 09/2023 3. Peripheral vascular disease --on aspirin and Plavix; okay to stop these from a cardiac standpoint 5 days prior to surgery 4. Low risk stress test 02/2024 5. Normal left ventricular systolic function on echocardiogram 02/2024 6. Hypothyroid -on Synthroid 7. Type 2 diabetes 8. Quit tobacco 09/2023 We discussed that with his vascular disease and risk factors that we know that he does have some coronary artery disease. The stress test and echo just give us some reassurance that it was not severeand he should be able to tolerate surgery without cardiac issues. Low to moderate risk Continued risk factor modification discussed Discussed the importance of continued risk factor modification TODAYS ORDERS No orders of the defined types were placed in this encounter. FOLLOW UP No follow-ups on file. PCP: DICK MIRANDA MD Referring Physician: Olegario Moreira MD [address] [place] [address] [place] [address] documented in this encounterNationwide [facility]12[facility]30-[facility]24 Instructions* Patient Instructions* Gary Owen MD - 03/05/2024 10:30 AM EST Wishing you all the best for 2024-- documented in this encounterNationwide Children's Hospital12-27-2024 Miscellaneous Notes* Telephone Encounter - Faiht Lane CMA - 03/02/2024 2:38 PM EST Called patient to remind them to bring their most current copy of their medication list with them to their appt. Patient verbalizes understanding. documented in this encounterNationwide Children's Hospital12-27-2024 Telephone encounter Note* Telephone Encounter - Faith Lane CMA - 03/02/2024 2:38 PM EST Called patient to remind them to bring their most current copy of their medication list with them to their appt. Patient verbalizes understanding. [facility] [id number] Instructions* Patient Instructions* Nieves Smith - 02/24/2024 3:27 PM EST Complete pulmonary testing as scheduled on Tuesday Consultation with radiation in 1 week, referral made by Dr. Oreilly C TBD based on radiation plans Start potassium supplement BID for 5 days - rx sent today Continue Ritalin 10mg BID documented in this encounterSelect [facility] History of Present illness Narrative* Lo Hancock MD - 02/24/2024 2:40 PM EST Images from the original note were not included. NAME: Erin Pena [facility] NO.: [id number] DATE OF SERVICE: February 24, 2024 (Khadijah) Some elements in this clinic note that are critical to medical decision making have been carefully reviewed and included from a prior clinic note dated: December 28, 2023 (Khadijah) Referring Provider: Gerald Abdi MD Additional Clinicians involved in Erin Pena's care: Dr. 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 Bronchoscopy - mediastinal and hilar LN's negative. LLL bx + Squamous cell carcinoma. Comleted neoadjuvant chemo / IO late December 2023. Unfortunately does not appear to be a good candidate for surgery and is exploring SBRT vs. Chemo/RT followed by immunotherapy. Overall he has had a pretty good response to date. (February 24, 2024 ) PLAN: Complete pulmonary testing as scheduled on Tuesday Consultation with radiation in 1 week, referral made by Dr. Oreilly RTC TBD based on radiation plans Start potassium supplement BID for 5 days - rx sent today Continue Ritalin 10mg BID HPI: CASE HISTORY: Reverse Chronological Order 01/25/2024 - CT CAP: Chest: Decreased size of the left lower lobe mass. No new suspicious appearing pulmonary nodules orthoracic lymphadenopathy. A/P: No metastatic disease in the abdomen or pelvis. 11/16/2023-12/28/2023 - 3 cycles of Carbo/Taxol + Nivo q 3 weeks (C2 & 3: Decrease Taxol to 175and Carbo AUC to 5) 11/01/2023 - Bronchoscopy: with Dr. Craig Cytology: 5 lymph nodes: Negative for malignant cells. Benign lymphoid sample 10/21/2023 - PET/CT: Abnormal uptake confined to the left upper lobe mass without evidence for metastatic disease. 10/05/2023 - Lung, left lower lobe, core biopsy: at [facility] - Invasive squamous cell carcinoma Comment: In order to classify the neoplasm, immunohistochemical staining is performed on 1B and demonstrates that the tumor cells are diffusely positive for AE1/AE3 and p40, and negative for TTF-1 and Napsin A with adequate controls, supporting the above diagnosis 09/28/2023 - CT Chest: 5.2 cm left upper lobe mass with satellite nodule, concerning for malignancy. Focal necrotizing pneumonia felt less likely but could appear similarly in the appropriate clinical setting. 09/28/2023 - MRI Brain: No acute intracranial findings. 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 09/27/2023 - CTA Neck: Partially visualized lobulated left lower lobe pulmonary mass measuring up to 4.8 cm highly concerning for malignancy. Complete CT chest examination recommended for further evaluation. 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 Mild (less than 50%) luminal narrowing of the proximal left internal carotid artery. 09/27/2023-09/29/2023 - Admitted at [facility] with left sided weakness, slurred speech - stroke workup negative 09/25/2023 - ER for bilateral leg weakness Updated Visit, February 24, 2024: Sergio returns with Mandy for a follow up. He has met with Dr. Oreilly to consider surgery - patient reports he may not be a candidate for surgery at this time. He is undergoing pulmonary testing and received a referral to radiation. If surgery he not safe for him, radiation would be a sufficient treatment option. Following his NM lung perfusion scan on 02/17/2024, he developed fatigue and generalized body aches. He has sharp pains in his heels when waking up in the morning, more recently the painspread to his toes. 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 CBC is normal, potassium remains low - I recommended he start a supplement. Updated Visit, December 28, 2023: Sergio and his , Mandy, return for his third and final planned cycle of Carbo/Taxol + Nivo. He complains of worsening dyspnea on exertion and productive coughing. He has gained weight recently - admits he is eating more now that he has stopped smoking. Lungs sound clear in all four quadrants. Worsening anemia and weight gain may be the cause of dyspnea. It is unlikely he has pneumonitis given his symptoms but advised him to contact the office dyspnea continues. He also endorses irritability which he feels is due to gabapentin - will discontinue. He has been prescribed Ritalin in the past to manage mood disorders - will send a new prescription. 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 He has not been diagnosed with diabetes although will be seeing his PCP soon to consider treatment for pre-diabetes. They are going to a football game in [place] around [facility], will complete CT CAP and surgery when he returns from his trip. Updated Visit, December 07, 2023: Sergio returns with Mandy for treatment. He endorses feeling like he was hit by a truck starting on the third day following treatment. He experiences nausea, vomiting, and acid reflux at night. I recommended he sleep with his head elevated and start his antiemetics today. He is treating neuropathywith gabapentin, is improving now. I will reduce his chemotherapy dose to manage toxicity. He has lost his hair due to treatment. Updated Visit, November 16, 2023: Sergio returns with Mandy to begin Carbo/Taxol + Nivo. He underwent a bronchoscopy on 10/31 - negative for rowena involvement. Plan for 3 cycles of treatment prior to resection. He is slightly anemic today, will check iron studies on Day 10 with david counts. Initial Visit, October 21, 2023: Erin Hill Saturnino Pena presents today for a Hematology and Oncology evaluation and second opinion.He is joined by his , Mandy. 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 He completed a PET/CT this morning which shows confined uptake in the left lung without metastatic disease. I recommended chemo+immuno treatment followed by surgery once staging studies are completed. He will also need PFTs to give predictive capacity following a potential resection. He is in agreement to start after staging is complete. Will refer him to Drs. Craig and Afia forsurgical evaluation. 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 Erin's [id number] is Arie Baker, who is my patient also. REVIEW OF SYSTEMS Per HPI and otherwise negative by full review of organ systems. ECOG PERFORMANCE STATUS: 1 PHYSICAL EXAMINATION: Vitals: BP 121/65 Pulse 69 Temp (Src) 97.7 (Temporal) Resp 18 Wt 189 lb 6 oz (85.9kg) SpO2 95% Body surface area is 2 meters squared. Exam limited to gross visualization where appropriate. Gen.: This is an age-appropriate patient in no acute distress. Head: Appears atraumatic with no visible lesions. Eyes: Pupils equally round and reactive to light, extraocular muscles are intact. Neck: Supple. Respiratory: Appears to be respiring comfortably. Neurologic: Nonfocal to gross visualization. Alert and oriented 3. Psychiatric: No evidence of inappropriate anxiety or depression. Skin: Visible areas of skin without rash, lesions, wounds or petechiae. ALLERGIES: ALLERGIES Allergen Reactions Sulfa (Sulfonamide * Unknown Unkown, was a child Gabapentin Intolerance Causes Altered mental Status MEDICATIONS: pregabalin (LYRICA) 75 mg capsule Take 75 mg by mouth once daily. clopidogrel (PLAVIX) 75 mg tablet Take 75 mg by mouth once daily. Nicotine Polacrilex (NICORETTE) [address] 4 mg between cheek and gum as needed. methylphenidate (RITALIN) 10 mg tablet Take 1 tablet by mouth two times a day for 30 days. traZODone (DESYREL) 100 mg tablet Take 1 tablet by mouth daily at bedtime. (Patient taking differently: Take 100 mg by mouth daily at bedtime. 2 tabs at bedtime) ondansetron (ZOFRAN) 8 mg tablet Take 1 tablet by mouth every 8 hours as needed for nausea/vomiting. prochlorperazine (COMPAZINE) 10 mg tablet Take 1 tablet by mouth every 6 hours as needed. Cetirizine 10 mg cap Take 10 mg by mouth once daily. albuterol HFA (PROVENTIL HFA, VENTOLIN HFA) 90 mcg/actuation inhaler Inhale 2 Puffs as instructed every 6 hours as needed. propranolol (INDERAL) 20 mg tablet TAKE 1 TABLET BY MOUTH NEEDED FOR ANXIETY ATTACKS ONCE A DAY sildenafil (VIAGRA) 100 mg tablet Take 100 mg by mouth at bedtime as needed. terazosin (HYTRIN) 1 mg capsule Take 1 mg by mouth daily at bedtime. vitamin E, dl,tocopheryl acet, (VITAMIN E, DL, ACETATE,) 45 mg (100 unit) capsule Take 400 Units bymouth once daily. metFORMIN (GLUCOPHAGE) 850 mg tablet Take 850 mg by mouth daily with breakfast. losartan (COZAAR) 100 mg tablet Take 100 mg by mouth once daily. krill oil 500 mg cap Take 1 capsule by mouth once daily. hydroCHLOROthiazide 50 mg tablet Take 50 mg by mouth once daily. Glucosamine HCl 500 mg tab Take 1 tablet by mouth once daily. cholecalciferol (VITAMIN D3) 1,000 unit tab tablet Take 1,000 Units by mouth once daily. atorvastatin (LIPITOR) 40 mg tablet Take 40 mg by mouth once daily. aspirin, enteric coated (ASPIRIN, ENTERIC COATED) 81 mg EC tablet Take 81 mg by mouth once daily. nicotine (NICODERM) 21 mg/24 hr Apply 1 Patch as directed. levothyroxine (SYNTHROID) 175 mcg tablet Take 175 mcg by mouth daily before breakfast. ascorbic acid (VITAMIN C) 500 mg tablet Take 500 mg by mouth once daily. multivitamin tablet Take 1 tablet by mouth once daily. potassium chloride ER (KLOR-CON) 20 mEq tablet Take 1 tablet by mouth two times a day for 5 days. iv contrast (will be provided with radiology test) CT Chest ABD/PEL-Inject, intravenously, once for1 dose.No IV access, insert saline lock prior to the beginning of sedation, infusion, injection of imaging exam. Discontinue saline lock post exam. If Pt. has a central line or IVAD, may access for administration according to line specific nursing protocol. Once exam is complete flush line and de-access according to line specific nursing protocol in the CT contrast administration guidelines link. enteric contrast (will be provided with radiology test) For CT CHESTABD/PEL W IVCON Routine order Administer, As Directed One Time Only, via Oral, Rectal, both Oral and Rectal, Enteric Tube, Stoma orIndwelling Catheter, Enteric Contrast as designated per enteric contrast guidelines LABORATORY VALUES: WBC (k/uL) Date Value 02/24/2024 12.41 (H) RBC (m/uL) Date Value 02/24/2024 3.80 (L) Hemoglobin (g/dL) Date Value 02/24/2024 11.2 (L) Hematocrit (%) Date Value 02/24/2024 33.3 (L) MCV (fL) Date Value 02/24/2024 87.6 MCH (pg) Date Value 02/24/2024 29.5 MCHC (g/dL) Date Value 02/24/2024 33.6 RDW-CV (%) Date Value 02/24/2024 15.7 (H) Platelet Count (k/uL) Date Value 02/24/2024 227 MPV (fL) Date Value 02/24/2024 10.1 Glucose (mg/dL) Date Value 02/24/2024 122 (H) BUN (mg/dL) Date Value 02/24/2024 14 Creatinine (mg/dL) Date Value 02/24/2024 0.79 Sodium (mmol/L) Date Value 02/24/2024 139 Potassium (mmol/L) Date Value 02/24/2024 3.1 (L) Chloride (mmol/L) Date Value 02/24/2024 97 (L) CO2 (mmol/L) Date Value 02/24/2024 32 (H) Protein, Total (g/dL) Date Value 02/24/2024 6.4 Albumin (g/dL) Date Value 02/24/2024 4.4 Calcium, Total (mg/dL) Date Value 02/24/2024 9.5 Alkaline Phosphatase (U/L) Date Value 02/24/2024 77 Bilirubin, Total (mg/dL) Date Value 02/24/2024 0.2 AST (U/L) Date Value 02/24/2024 17 ALT (U/L) Date Value 02/24/2024 18 DIAGNOSIS: (C34.90) Malignant neoplasm of lung, unspecified laterality, unspecified part of lung (HCC) (primary encounter diagnosis) Plan: potassium chloride ER (KLOR-CON) 20 mEq tablet (R79.9) Abnormal blood chemistry Plan: potassium chloride ER (KLOR-CON) 20 mEq tablet PAST MEDICAL HISTORY Diagnosis Date Chronic obstructive pulmonary disease (HCC) 10/20/2023 Hypertension Hypothyroidism Lung cancer (HCC) 2023 refBy [place] Other affections of shoulder region, not elsewhere classified 03/14/2012 PAST SURGICAL HISTORY Procedure Laterality Date APPENDECTOMY BRAIN SURGERY HX COLONSCOPY SCREENING HIGH RISK FINGER AMPUTATION (SPECIFY DIGIT) HX HAND SURGERY HX HEMORROIDECTOMY INTERNAL LUNG BIOPSY Left NECK SURGERY HX PAST SURGICAL HISTORY OF Heart cath REMV CATARACT EXTRACAP,INSERT LENS S KIT CRAINIOTOMY [id number] SHOULDER ARTHROSCOPY/SURG TYMPANOSTOMY GENERAL ANESTHESIA XR CERVICAL FUSION OR C4 fusion Social History Tobacco Use Smoking status: Former Current packs/day: 0.00 Average packs/day: 0.5 packs/day for 50.0 years (25.0 ttl pk-yrs) Types: Cigarettes Start date: 09/22/1973 Quit date: 09/23/2023 Years since quittin.4 Passive exposure: Current Smokeless tobacco: Never Tobacco comments: Quit September 26 Vaping Use Vaping status: Former Substance Use Topics Alcohol use: No Drug use: No FAMILY HISTORY Problem Relation Age of Onset Stroke Mother Cancer Mother Heart disease Father Hypertension Father Stroke Paternal Grandmother Anesthesia Problems No Family History I spent a total of 40 minutes on the date of the service which included preparing to see the patient, [id number] patient care, completing clinical documentation, obtaining and/or reviewing separately obtained history, performing a medically appropriate examination, counseling and educating the pat ient/family/caregiver, ordering medications, tests, or procedures, communicating with other HCPs (not separately reported), independently interpreting results (not separately reported), communicatingresults to the patient/family/caregiver, and care coordination (not separately reported). Lo Hancock MD, CPE H[facility]ology [facility] Oncology Services Provided at: [place], [place] Scribe Attestation: This note was scribed by Nieves Smith on February 24, 2024 under the direction and supervisionof Dr. Lo Hancock. I attest that all of the information documented is correct to the best of my knowledge. Provider Attestation: I, Lo Hancock MD, attest that all information documented by the above scribe is correct, and was supervised by me and under my direction. CC: Gerald Abdi [id number] [address] Basia Vega MD [address] [facility] [id number] Savanah Oreilly MD documented in this encounterSelect [facility] [place] [facility] encounter Note* Telephone Encounter - Noemy Chicas RN - 02/20/2024 2:26 PM EST FYI: Pt had a NM lung perfusion scan done @ [facility] on Tuesday. Reports he developed fatigue and generalized body aches the next day. States his symptoms have progressively worsened each day since. Denies fevers/chills. Asks if this is a typical side effect with this test. Informed pt that he could just be coming down w/ a bug, but advised he contact Dr Oreilly's office w/his question since he is the ordering physician and likely more familiar with this particular test.Pt verbalizes understanding and agrees. Noemy Chicas RN [facility] Work Phone: [phone] Miscellaneous Notes* Telephone Encounter - Noemy Chicas RN - 02/20/2024 2:26 PM EST FYI: Pt had a NM lung perfusion scan done @ [facility] on Tuesday. Reports he developed fatigue and generalized body aches the next day. States his symptoms have progressively worsened each day since. Denies fevers/chills. Asks if this is a typical side effect with this test. Informed pt that he could just be coming down w/ a bug, but advised he contact Dr Oreilly's office w/his question since he is the ordering physician and likely more familiar with this particular test.Pt verbalizes understanding and agrees. Noemy Chicas RN documented in this encounterSelect Medical [place] [facility]12-09-2024 History of Present illness Narrative* Olegario Moreira MD - 02/13/2024 2:00 PM EST Images from the original note were not included. [facility] [address] [id number] Subjective: Patient ID: Erin Pena is a 68 y.o. male. Chief Complaint Chief Complaint Patient presents with Follow-up Extremity Pain Pt c/o pain in bilateral calves with walking-states he can walk more than 11 feet without having tostop and rest History of Present Illness: This is a 68 year old male with history of occlusive arterial disease. We are following him or history of carotid occlusion and also occlusive arterial disease with claudication. Over the summer was noted to have a lung mass which was biopsied and he was bound to have squamous cell lung cancer. He has completed laura-adjuvant therapy and is supposed to have a surgical resection at some point. The patient presents to the office today due to worsening cramping pain in the calf muscles. He states cramping occurs after walking about 100 feet. He states he will stop and rest and cramping will improve. He denies rest pain or tissue loss. He was prescribed Pletal unfortunately did not tolerateit. 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) Hyporeflexia Other affections of shoulder region, not elsewhere classified Essential hypertension Hypothyroidism Hx of fusion of cervical spine Bilateral carotid artery stenosis Claudication (CMS-HCC) Occlusive disease, arterial Right internal carotid occlusion Left-sided weakness Lung mass Chronic obstructive pulmonary disease (CMS-HCC) Current Outpatient Medications: albuterol (PROVENTIL HFA;VENTOLIN HFA) 90 mcg/actuation inhaler, Inhale 2 puffs every 6 (six) hoursas needed for wheezing., Disp: 18 g, Rfl: 11 ascorbic acid (VITAMIN C) 500 mg tablet, Take 1 tablet (500 mg total) by mouth in the morning., Disp: , Rfl: aspirin 81 mg, TAKE 1 TABLET (81 MG TOTAL) BY MOUTH IN THE MORNING, Disp: 90 tablet, Rfl: 1 atorvastatin (LIPITOR) 40 mg tablet, Take 1 tablet (40 mg total) by mouth in the morning., Disp: , Rfl: cetirizine (ZyrTEC) 10 mg tablet, Take 1 tablet (10 mg total) by mouth in the morning., Disp: , Rfl: cholecalciferol (VITAMIN D3) 1,000 units tablet, Take 1 tablet (1,000 Units total) by mouth in the morning., Disp: , Rfl: clopidogreL (PLAVIX) 75 mg tablet, TAKE 1 TABLET BY MOUTH EVERY DAY IN THE MORNING, Disp: 90 tablet, Rfl: 1 hydroCHLOROthiazide (HYDRODIURIL) 50 mg tablet, Take 1 tablet (50 mg total) by mouth daily., Disp: , Rfl: HYDROcodone-acetaminophen (XODOL) 7.5-300 mg per tablet, Take 1 tablet by mouth every 6 (six) hoursas needed for pain., Disp: , Rfl: krill oil 500 mg capsule, Take by mouth., Disp: , Rfl: losartan (COZAAR) 100 mg tablet, Take 1 tablet (100 mg total) by mouth in the morning., Disp: , Rfl: metFORMIN (GLUCOPHAGE) 850 mg tablet, Take 1 tablet (850 mg total) by mouth Daily after lunch., Disp: 60 tablet, Rfl: 0 multivit-minerals/ferrous fum (MULTI VITAMIN ORAL), Take by mouth. d3 100u and e 180 daily , Disp: , Rfl: pregabalin (LYRICA) 75 mg capsule, Take 1 capsule (75 mg total) by mouth in the morning., Disp: , Rfl: SYNTHROID 175 mcg tablet, Take 1 tablet (175 mcg total) by mouth in the morning., Disp: , Rfl: 1 terazosin (HYTRIN) 1 mg capsule, Take 1 capsule (1 mg total) by mouth nightly., Disp: , Rfl: tiotropium bromide (SPIRIVA RESPIMAT) 2.5 mcg/actuation mist, Inhale 2 puffs in the morning., Disp:4 g, Rfl: 12 vitamin E 100 units capsule, Take 4 capsules (400 Units total) by mouth in the morning. 20 IU ., Disp: , Rfl: gabapentin (NEURONTIN) 100 mg capsule, Take 1 capsule (100 mg total) by mouth once daily at bedtime. Pt is only taking one tablet a day. (Patient not taking: Reported on 02/13/2024), Disp: , Rfl: The following portions of the patient's history were reviewed and updated as appropriate: allergies, current medications, past family history, past medical history, past social history, past surgicalhistory and problem list. Review of Systems: Review of Systems Constitutional: Negative. HENT: Negative. Eyes: Negative. Respiratory: Negative. Cardiovascular: Negative. Gastrointestinal: Negative. Endocrine: Negative. Genitourinary: Negative. Musculoskeletal: Negative. Skin: Negative. Allergic/Immunologic: Negative. Neurological: Negative. Hematological: Negative. Psychiatric/Behavioral: Negative. Objective: Vitals BP 124/78 Pulse 72 Wt 86.6 kg (191 lb) BMI 30.83 kg/m Physical Exam Physical Exam Vitals and nursing note reviewed. Constitutional: Appearance: He is well-developed. HENT: Head: Normocephalic and atraumatic. Nose: Nose normal. Mouth/Throat: Mouth: Mucous membranes are moist. Pharynx: Oropharynx is clear. Eyes: Conjunctiva/sclera: Conjunctivae normal. Cardiovascular: Rate and Rhythm: Normal rate and regular rhythm. Pulmonary: Effort: Pulmonary effort is normal. Abdominal: Palpations: Abdomen is soft. Musculoskeletal: General: Normal range of motion. Cervical back: Normal range of motion. Skin: General: Skin is warm and dry. Capillary Refill: Capillary refill takes less than 2 seconds. Neurological: Mental Status: He is alert and oriented to person, place, and time. Absent pedal pulses but the feet are warm and viable with good capillary refill. No ulcers noted, no gangrene noted. Motor/sensation intact Studies Reviewed CTA aorta with runoff No results found for: DDIMER Lab Results Component Value Date GLU 119 (H) 09/29/2023 CALCIUM 8.6 09/29/2023 SODIUM 136 09/29/2023 K 3.5 09/29/2023 CO2 30 09/29/2023 BUN 10 09/29/2023 CREATININE 0.56 (L) 09/29/2023 Lab Results Component Value Date WBC 10.4 09/29/2023 HGB 12.3 (L) 09/29/2023 HCT 36.8 (L) 09/29/2023 MCV 87 09/29/2023 PLT 378 09/29/2023 Assesment: Sergio was seen today for follow-up and extremity pain. Diagnoses and all orders for this visit: Occlusive disease, arterial Right internal carotid occlusion Plan: Plan I reviewed the patient's CTA which shows bilateral SFA occlusions. He currently complains of claudication. We discussed treatment options. I explained at this point he would likely require bilateral femoral-popliteal artery bypass grafts however currently his feet are warm and well-perfused and arenot threatened at this point. I advised him to hold off on intervention at this time. We discussed non-operative methods to improve perfusion to the feet and to help his symptoms. I have recommended he walk regularly in order to improve his collateral flow. I have recommended he walk a minimum of 20 minutes four days a week with breaks as needed. I will see him back in 3 months. If his symptoms wo rsen then we can discuss revascularization. This note was created with the assistance of a speech recognition program. While intending to generate a timely document that accurately reflects the content of the visit, no guarantee can be provided that every grammatical or spelling mistake has been or will be identified or corrected. Thank you for your understanding. Olegario Moreira MD documented in this encounterNation[facility] Instructions* Patient Instructions* Savanah Oreilly MD - 02/08/2024 11:50 AM EST Our office will call you to schedule your: Pulmonary function testing 6 Minute walk test Split lung function testing 2D Echo Cardiac stress test We will refer you to Dr. Jose Maria Pollard in Radiation Oncology at [facility]. I will schedule a virtual follow up visit to discuss the results of the above testing and radiationoncology visit. documented in this encounterSelect Medical [place] [facility]2024 History of Present illness Narrative* Savanah Oreilly MD - 02/08/2024 11:00 AM EST REASON FOR EVALUATION: Follow up. 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 On 09/25/2023 the patient presented to an outside ED for bilateral leg weakness. From 09/27/2023-09/29/2023 he was admitted at [facility] with left sided weakness, slurred speech. CVA workup negative. During thatadmission on 09/27/2023 the patient had a CTA Neck that showed: Partially visualized lobulated leftlower lobe pulmonary mass measuring up to 4.8 cm highly concerning for malignancy. On 09/28/2023 the patient had a MRI Brain that showed: No acute intracranial findings. 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 On 09/28/[address] a [address] Chest that showed: a 5.2 cm left lower lobe mass with satellite nodule, concerning for malignancy. The patient improved clinically and was discharged to home. On 10/05/2023 the patient had a Lung, left lower lobe, core biopsy: at [facility] that showed Invasive squamous cell carcinoma. On 10/21/2023 - PET/CT that showed: Abnormal uptake confined to the left lower lobe mass without evidence for metastatic disease. The patient had bronchoscopy with EBUS staging of his mediastinum on 11/01/23. Nodes at stations 4R, 7, 4L, 10L and 11L did not have metastatic disease. The patient saw medical oncology and laura-adjuvant therapy followed by definitive surgical resection was recommended. I saw the patient on 11/09/23 and discussed management of this patient's left lower lobe squamous cell cancer. I discussed the rationale for laura-adjuvant therapy followed by definitive surgical resection. I did discuss the risks, options, benefits and alternatives in detail with the patient. The patient understands the risks and complications. All of the patient's questions were answered. The patient was in agreement and wanted to begin his pre-operative therapy. The patient has completed laura-adjuvant therapy and is here to discuss definitive surgical resection. Clinically, the patient is fatigued. He lost his hair. ALLERGIES, MEDICATIONS, PAST MEDICAL HISTORY, PAST SURGICAL HISTORY, SOCIAL HISTORY, FAMILY HISTORYAND REVIEW OF SYSTEMS REVIEWED. THERE ARE NO CHANGES. REVIEW OF SYSTEMS: A 14-point review of systems was performed. All pertinent positives are listed in the HPI. All other systems reviewed are negative. PHYSICAL EXAM: Vitals reviewed. General: alert, oriented, no distress HEENT: PERRLA, EOMI, anicteric, oropharynx unremarkable. Neck: no adenopathy. Resp: clear to ausculation bilaterally. Chest: no deformity. Cardiac: regular rate and rhythm, no murmurs, gallops or rubs. Abdomen: soft, non-tender, non-distended, no mass, no organomegaly. Extremities: no edema, cyanosis Neurologic: grossly intact Skin: warm, dry, intact, no lesions DIAGNOSTICS: I have personally reviewed the patient's available diagnostic studies, including: CT CHEST 01/25/24: IMPRESSION: Decreased size of the left lower lobe mass. No new suspicious appearing pulmonary nodules or thoracic lymphadenopathy. CT ABDOMEN/PELVIS 01/25/24: IMPRESSION: No metastatic disease in the abdomen or pelvis. CT ANGIOGRAM CAROTID 09/28/23: IMPRESSION: * Partially visualized lobulated left lower lobe pulmonary mass measuring up to 4.8 cm highly concerning for malignancy. Complete CT chest examination recommended for further evaluation. 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 * Mild (less than 50%) luminal narrowing of the proximal left internal carotid artery. 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 On 09/25/2023 the patient presented to an outside ED for bilateral leg weakness. From 09/27/2023-09/29/2023 he was admitted at [facility] with left sided weakness, slurred speech. CVA workup negative. During that admission on 09/27/2023 the patient had a CTA Neck that showed: Partially visualized lobulated left lower lobe pulmonary mass measuring up to 4.8 cm highly concerning for malignancy. On 09/28/2023 the patient had a MRI Brain that showed: No acute intracranial findings. 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 On 09/28/[address] the [address] a [address] Chest that showed: a 5.2 cm left lower lobe mass with satellite nodule, concerning for malignancy. The patient improvedclinically and was discharged to home. On 10/05/2023 the patient had a Lung, left lower lobe, core biopsy: at [facility] that showed Invasive squamous cell carcinoma. On 10/21/2023 - PET/CT that showed: Abnormal uptake confined to the left lower lobe mass without evidence for metastatic disease. Thepatient had bronchoscopy with EBUS staging of his mediastinum on 11/01/23. Nodes at stations 4R, 7, 4L, 10L and 11L did not have metastatic disease. The patient saw medical oncology and laura-adjuvant th erapy followed by definitive surgical resection was recommended. I saw the patient on 11/09/23 and discussed management of this patient's left lower lobe squamous cell cancer. I discussed the rationale for laura-adjuvant therapy followed by definitive surgical resection. I did discuss the risks, options, benefits and alternatives in detail with the patient. The patient understands the risks and complications. All of the patient's questions were answered. The patient was in agreement and wanted to begin his pre-operative therapy. The patient has completed laura-adjuvant therapy and is here to discuss definitive surgical resection. Clinically, the patient is fatigued. He lost his hair. I personally reviewed the patient's CT Chest/Abdomen/Pelvis performed on 01/25/24. It shows: Decreased size of the left lower lobe mass; no new suspicious appearing pulmonary nodules or thoracic lymphadenopathy; no metastatic disease in the abdomen or pelvis. I spent more than 30- minutes with this patient counseling the patient on his on his left lower lobe squamous cell cancer and definitive surgical resection. The patient is not convinced that he wantsto proceed with surgical resection. He asked about other options. I discussed definitive chemotherapy and also raised the possibility of SBRT therapy, although I told him that I did not know if his particular situation would qualify for that particular treatment option. I am recommending that the patient undergo a flexible bronchoscopy, left regional nerve block, leftrobotic assisted anatomic lower lobectomy, mediastinal and hilar lymph node dissection, left chest drain placement, possible conversion to left thoracotomy, possible blood transfusion. I did discuss the risks, options, benefits and alternatives in detail with the patient. The patient understands the risks and complications and would like to proceed. All of the patient's questions were answered today. The patient would like to go through with the preoperative testing to see if he is a candidate for surgical resection. He would also like to meet with radiation oncology to discuss whether or not SBRT would be a treatment option for him. My office will schedule the patient's preoperative testing, including: PFT, six- minute walk testing, split lung function testing, 2-D echocardiogram and cardiac stress test and referral to radiation oncology. I will plan on scheduling a virtual follow up visit with the patient once the testing and radiationoncology appointment have been completed. Once again, thank you for your kind referral of Erin Pena to me. If you have any questions or if I can be of help to you with any of your other patients, please do not hesitate to contact me. documented in this encounterSelect [facility] NoteSt[facility] Telephone encounter Note* Telephone Encounter - Noemy Chicas RN - 01/26/2024 10:49 AM EST Pt notified and verbalizes understanding. Noemy Chicas RN [facility] Work Phone: 1([phone] 480-154711-21-2024 Miscellaneous Notes* Telephone Encounter - Noemy Chicas RN - 01/26/2024 10:49 AM EST Pt notified and verbalizes understanding. Noemy Chicas RN * Telephone Encounter - Noemy Chicas RN - 01/26/2024 10:47 AM EST ----- Message from Lo Hancock MD sent at 01/25/2024 7:10 PM EST ----- Scans show a nice response to treatment. - I will plan to see you after Dr. Oreilly takes care of you! Carlos Enrique, Dr. Waggoner. documented in this encounterSelect Medical [facility]11-21-2024 Telephone encounter Note * Telephone Encounter - Noemy Chicas RN - 01/26/2024 10:47 AM EST ----- Message from Lo Hancock MD sent at 01/25/2024 7:10 PM EST ----- Scans show a nice response to treatment. - I will plan to see you after Dr. Oreilly takes care of you! Dr. Bobby Monaco. [facility]11-20-2024 History of Present illness Narrative* Miah Cooley RT(R) - 01/25/2024 9:15 AM EST Radiology Service Progress Note PATIENT NAME: Erin Pena DATE OF SERVICE: January 25, 2024 TIME: 9:48 AM PATIENT IDENTITY VERIFICATION COMPLETED USING TWO (2) IDENTIFIERS: Name and Date of confirmedby patient verbally. FALL SCREENING: Has the patient had 2 falls in the last year or 1 fall with injury or currently using an Ambulatory Assistive Device (Walker, Cane, Wheelchair, Crutches, etc.)? No PATIENT GENDER DATA: Male PATIENT RELEVANT IMPLANT DATA REVIEWED: Not Applicable PATIENT PRESENTS WITH AN IMPLANTABLE OR ATTACHED UNEMPLOYMENT BENEFITS CLAIMS TAKER: No RADIOLOGY DEPARTMENT: CT; Exam(s) Completed: Chest Abdomen Pelvis PERIPHERAL IV DATA: Site assessment: Clean,Dry and Intact, Site disposition Discontinued SIGNED BY: RT Maryana(R) January 25, 2024 9:48 AM documented in this encounterSelect Medical [facility]11-20-20[address] NoteSt[facility]11-13-2024 Telephone encounter Note* Telephone Encounter - Noemy Chicas RN - 01/18/2024 11:37 AM EST Spouse calls w/ questions regarding intimacy during treatment. Questions reviewed and answered. No additional questions noted. Noemy Chicas RN [facility] Work Phone: 1(266) 712-774911-13-2024 Miscellaneous Notes* Telephone Encounter - Noemy Chicas RN - 01/18/2024 11:37 AM EST Spouse calls w/ questions regarding intimacy during treatment. Questions reviewed and answered. No additional questions noted. Noemy Chicas RN documented in this encounterSelect Medical [facility]11-12-2024 History of Present illness Narrative* Dick Miranda MD - 01/17/2024 11:04 AM ESTAssociated Problem(s): PAD (peripheral artery disease) (CMS/HCC) Occasional claudication and continue plavix. Increase ambulation. * Dick Miranda MD - 01/17/2024 11:03 AM ESTAssociated Problem(s): Essential hypertension (CMS/HCC) BP controlled and monitor PRN. * Dick Miranda MD - 01/17/2024 11:03 AM ESTAssociated Problem(s): Chronic obstructive pulmonary disease (CMS/HCC) Symptoms stable and use albuterol PRN. * Dick Miranda MD - 01/17/2024 11:03 AM ESTAssociated Problem(s): Chemotherapy- induced neuropathy (CMS/HCC) Continued pain and try lyrica. Use norco PRN. * Dick Miranda MD - 01/17/2024 10:15 AM EST Images from the original note were not included. Subjective Patient ID: Erin Pena is a 68 y.o. male who presents for Follow-up (Still feeling a lot of pain from chemo). Follow up HTN, PAD, COPD, chemo neuropathy and lung cancer. Patient unchanged today. Checking BP PRN and typically controlled. BP normal today. Taking medication daily and tolerating without side effects. Prior neurontin did not help. Continues to have severe neuropathy and pain in hands and legs. Pain constant and worse when up and moving. Hard to stay active and numbness affecting balance. PAD stable. Resumed plavix. Patient not sure if feeling claudication when walking or neuropathy but develops worsening pain in legs then has to stop. Continues to walk and stay active. Completed chemo andwill have scan soon. Likely will have surgical resection of cancer. COPD stable. Mild SOB with exertion. Occasional cough but no sputum. Using albuterol PRN and mild relief. Review of Systems Constitutional: Negative for fatigue. Respiratory: Negative for cough, shortness of breath and wheezing. Cardiovascular: Negative for chest pain and palpitations. Gastrointestinal: Negative for abdominal pain, diarrhea, nausea and vomiting. Genitourinary: Negative for dysuria. Objective Physical Exam Constitutional: General: He is not in acute distress. Appearance: Normal appearance. HENT: Head: Normocephalic. Right Ear: Tympanic membrane and ear canal normal. Left Ear: Tympanic membrane and ear canal normal. Eyes: Extraocular Movements: Extraocular movements intact. Pupils: Pupils are equal, round, and reactive to light. Cardiovascular: Rate and Rhythm: Normal rate and regular rhythm. Heart sounds: No murmur heard. No friction rub. No gallop. Pulmonary: Breath sounds: Normal breath sounds. No wheezing, rhonchi or rales. Abdominal: General: Bowel sounds are normal. There is no distension. Palpations: Abdomen is soft. Tenderness: There is no abdominal tenderness. There is no guarding or rebound. Musculoskeletal: Left lower leg: No edema. Neurological: Mental Status: He is alert. Assessment/Plan Problem List Items Addressed This Visit Essential hypertension (CMS/HCC) - Primary BP controlled and monitor PRN. Hypothyroidism, postradioiodine therapy (CMS/HCC) Relevant Medications levothyroxine (Synthroid) 175 MCG tablet PAD (peripheral artery disease) (CMS/HCC) Occasional claudication and continue plavix. Increase ambulation. DDD (degenerative disc disease), cervical Relevant Medications HYDROcodone-acetaminophen ([place]) 7.5-325 MG tablet Chronic obstructive pulmonary disease (CMS/HCC) Symptoms stable and use albuterol PRN. Chemotherapy-induced neuropathy (CMS/HCC) Continued pain and try lyrica. Use norco PRN. Relevant Medications pregabalin (Lyrica) 75 MG capsule Encounter for long-term (current) use of medications Relevant Orders Basic metabolic panel documented in this encounterSaint [facility]ry [id number] Telephone encounter Note* Telephone Encounter - Noemy Chicas RN - 01/04/2024 9:11 AM EDT Letter signed and pt's spouse notified. Will picker feeder at assignment desk assistant tomorrow or [place]. Noemy Chicas RN [facility] Work Phone: 1(497) 157-605010-30-2024 Miscellaneous Notes* Telephone Encounter - Noemy Chicas RN - 01/04/2024 9:11 AM EDT Letter signed and pt's spouse notified. Will picker feeder at assignment desk assistant tomorrow or Tuesday. Noemy Chicas RN * Telephone Encounter - Noemy Chicas RN - 01/03/2024 1:42 PM EDT Pt's spouse reports they have cancelled travel plans for end january. Need a letter from the physician states he is unable to travel. Letter on 's desk for signature. Noemy Chicas RN documented in this encounterSelect Medical [facility]10-29-2024 Telephone encounter Note * Telephone Encounter - Noemy Chicas RN - 01/03/2024 1:42 PM EDT Pt's spouse reports they have cancelled travel plans for end january. Need a letter from the physician states he is unable to travel. Letter on 's desk for signature. Noemy Chicas RN [facility]10-29-2024 Telephone encounter Note* Telephone Encounter - Noemy Chicas RN - 01/03/2024 11:28 AM EDT Call placed to pt. No answer. Message left on pt's personal voicemail, informing him it is ok to use the Voltaren cream. Advised he call back w/ any questions. Noemy Chicas RN [facility] Work Phone: [phone] Miscellaneous Notes* Telephone Encounter - Noemy Chicas RN - 01/03/2024 11:28 AM EDT Call placed to pt. No answer. Message left on pt's personal voicemail, informing him it is ok to use the Voltaren cream. Advised he call back w/ any questions. Noemy Chicas RN * Telephone Encounter - Florence De La Cruz RPh - 01/03/2024 10:59 AM EDT Yes, I agree. Emery De La Cruz, PharmD, BCOP * Telephone Encounter - Noemy Chicas RN - 01/03/2024 9:55 AM EDT Pt's PCP recommended OTC Voltaren cream for pt's hip pain. Pt asks if he is ok to use this while onchemo/IO. Per Up To Date, no interaction noted between Voltaren and Carbo, Taxol, & Nivolumab. Pharmacy: Do you agree? Noemy Chicas RN documented in this encounterSelect Medical [facility]10-29-2024 Telephone encounter Note * Telephone Encounter - Florence De La Cruz RPh - 01/03/2024 10:59 AM EDT Yes, I agree. Eemry De La Cruz, LorriD, BCOP [facility] Work Phone: [phone] Telephone encounter Note* Telephone Encounter - Noemy Chicas RN - 01/03/2024 9:55 AM EDT Pt's PCP recommended OTC Voltaren cream for pt's hip pain. Pt asks if he is ok to use this while onchemo/IO. Per Up To Date, no interaction noted between Voltaren and Carbo, Taxol, & Nivolumab. Pharmacy: Do you agree? Noemy Chicas RN [facility]10-29-2024 History of Present illness Narrative* Erin Holland, - 01/03/2024 9:00 AM EDT Images from the original note were not included. HISTORY OF PRESENT ILLNESS: Erin Pena is an 68 y.o. @ male. Follow up RT hip s/p PT/injx RT hip: had hip bursa injx 2 months ago (09/27/23) Did not go to PT due to having TIA and being dx with lung cancer RT hip pain x 6 months (end of 06/2023). Gets a flare up every year. Tx by PCP 07/18 with injection in buttocks and prednisone. Was also given HEP. RT Hip bursa injx 07/25 by Robert without relief. Went to [facility] ER 07/30 in severe pain, had CT pelvis, toradol injx and norflex injx and given meloxicam RX. He notes the pain tolerable during the day. Not able to sleep on RT side, it does wake him at times. Not using cane. Pain over lateral hip. Pain 2-3/10 at rest. Pain at HS 4-5/10. Taking vicodin bid (per Dr Miranda) Slight numbness in lateral thigh. Denies popping/grinding. Denies pain when sitting Recently dx with lung cancer, started chemo 11/16/23, also had TIA. Prior tx: PCP, depo injection in buttocks 07/19/23, prednisone, physician directed HEP, XR NOMS 07/26/23, cane, vicodin, ice, heat, baths, creams, depo injection 07/26/23, [facility] ER 07/31/23, CT pelvis toradol and norflex injections, taking meloxicam, MRI RT hip and lumbar NOMS 08/09/23, hip bursa injx 09/27/23 Hx 2 prior lumbar surgeries. MEDICATION: Current Outpatient Medications on File Prior to Visit Medication Sig Dispense Refill albuterol HFA 90 mcg/act inhaler Inhale 2 puffs every 6 (six) hours if needed ascorbic acid (Vitamin C) 500 MG tablet Take 500 mg by mouth in the morning. aspirin 81 MG EC tablet Take 81 mg by mouth in the morning. atorvastatin (Lipitor) 40 MG tablet Take 1 tablet (40 mg) by mouth Daily 90 tablet 3 cetirizine (ZyrTEC) 10 MG tablet Take 10 mg by mouth in the morning. cholecalciferol (Vitamin D-3) 25 MCG (1000 UT) tablet Take 500 Units by mouth in the morning. diazePAM (Valium) 5 MG tablet Take 1 tablet (5 mg) by mouth 3 (three) times a day as needed for anxiety 90 tablet 0 gabapentin (Neurontin) 100 MG capsule Take 100 mg by mouth at bedtime Glucosamine 750 MG tablet Take by mouth Daily hydroCHLOROthiazide (HYDRODiuril) 50 MG tablet Take 1 tablet (50 mg) by mouth in the morning. 30 tablet 11 HYDROcodone-acetaminophen ([place]) 7.5-325 MG tablet Take 1 tablet by mouth 4 (four) times a day as needed for severe pain for up to 23 days 90 tablet 0 Krill Oil ([place]-3) 500 MG capsule Take by mouth. losartan (Cozaar) 100 MG tablet TAKE 1 TABLET BY MOUTH EVERY DAY 90 tablet 3 meloxicam (Mobic) 7.5 MG tablet Take by mouth metFORMIN (Glucophage) 850 MG tablet TAKE 1 TABLET BY MOUTH EVERY DAY WITH A MEAL FOR 90 DAYS 90 tablet 3 methylphenidate CD (Metadate CD) 10 MG daily capsule Take 10 mg by mouth in the morning. Do not crush or chew.. Multiple Vitamin (Multi-Vitamin) tablet Take 1 tablet by mouth in the morning. nicotine (Nicoderm, Step 1) 21 MG/24HR patch Place 1 patch over 24 hours on the skin 1 (one) time each day at the same time 30 patch 1 omeprazole OTC (PriLOSEC OTC) 20 MG EC tablet Take 20 mg by mouth in the morning. Take before meals. Do not crush, chew, or split.. ondansetron (Zofran) 8 MG tablet Take 8 mg by mouth every 8 (eight) hours if needed potassium chloride CR (Klor-Con) 8 MEQ ER tablet Take 8 mEq by mouth Daily Do not crush, chew, or split. prochlorperazine (Compazine) 10 MG tablet Take 10 mg by mouth every 6 (six) hours if needed propranolol (Inderal) 20 MG tablet TAKE 1 TABLET BY MOUTH NEEDED FOR ANXIETY ATTACKS ONCE A DAY sildenafil (Viagra) 100 MG tablet Take 1 tablet (100 mg) by mouth Daily as needed for erectile dysfunction. 10 tablet 10 Synthroid 175 MCG tablet TAKE 1 TABLET (175 MCG) BY MOUTH IN THE MORNING. TAKE BEFORE MEALS. 90 tablet 0 terazosin (Hytrin) 1 MG capsule TAKE 1 CAPSULE BY MOUTH EVERYDAY AT BEDTIME 90 capsule 4 traZODone (Desyrel) 100 MG tablet Take 1 tablet (100 mg) by mouth at bedtime 30 tablet 5 Vitamin E 45 MG (100 UNIT) capsule Take 20 Units by mouth in the morning. [DISCONTINUED] traZODone (Desyrel) 50 MG tablet Take 1 tablet (50 mg) by mouth at bedtime (Patient taking differently: Take 100 mg by mouth at bedtime) 30 tablet 5 No current facility-administered medications on file prior to visit. MEDICAL HISTORY: Past Medical History: Diagnosis Date ? radiation exposure Daljit Morris, 2000 AB (asthmatic bronchitis), severe persistent, uncomplicated (CMS/HCC) Ataxia Cerebrovascular disease Chronic fatigue syndrome Cigarette smoker Conductive hearing loss in left ear eyelid ptosis/brow ptosis b/l 2010 Guillian [place] syndrome was a questionable diagnosis 2011 H/O chronic ulcerative colitis H/O TIA (transient ischemic attack) and stroke hemorrhoid surgery 1985 History of colonic polyps Hyperlipidemia (CMS/HCC) Hypertension (CMS/HCC) Hypothyroidism (CMS/HCC) Hypothyroidism, postradioiodine therapy (CMS/HCC) Infectious diarrhea 1999 left CSF leak or otorrhea Low testosterone Lung cancer (CMS/HCC) Male erectile dysfunction, unspecified Malignant neoplasm of skin of face Myringotomy tube status Other chronic pain Personal history of other diseases of the digestive system pre diabetic A1c 6.2 Shoulder impingement syndrome 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 Sulfa Antibiotics Unknown and Rash Unkown, was a child Gabapentin Other VITALS: Visit Vitals Smoking Status Every Day PHYSICAL EXAM: Ortho Exam RIGHT HIP ROM 30 IR and 30 ER Strength 5/5 Tenderness RT greater troch IMAGING: MRI of the lumbar spine and an MRI of the right hip dated August 09, 2023 [facility].There is mild degenerative changes of the lumbar discs with loss of signal intensity and mild posterior bulging there are no areas of spinal cord or nerve root compression. There is no evidence of acute disc herniation. There is a tear of the gluteus minimus but no evidence of avascular necrosis or fracture ASSESSMENT: ICD-10-CM 1. Right hip pain M25.551 2. Trochanteric bursitis of right hip M70.61 3. Tear of right gluteus minimus tendon, subsequent encounter S76.011D PLAN: I explained the diagnosis and reviewed treatment options. I answered all of the patient's questions. I recommend Voltaren gel and explained proper application. Follow up as needed, any issues/concerns follow up sooner. I did advise the patient that I am leaving my current practice to practice in another state but my colleagues are willing to see him if he has any problems or concerns or if he desires a referral to another ict security specialist we would be happy to make referral, he states he would like to continue his care here. Annabella Holland D.O. documented in this encounterSaint Luke's [facility] Hospital–[facility]ry [id number] Telephone encounter Note* Telephone Encounter - Noemy Chicas RN - 12/29/2023 4:56 PM EDT Pt notified and verbalizes understanding. Noemy Chicas RN [facility] Work Phone: 1(502) 537-465210-24-2024 Miscellaneous Notes* Telephone Encounter - Noemy Chicas RN - 12/29/2023 4:56 PM EDT Pt notified and verbalizes understanding. Noemy Chicas RN * Telephone Encounter - Lo Hancock MD - 12/29/2023 4:54 PM EDT Both sound good. * Telephone Encounter - Noemy Chicas RN - 12/29/2023 3:00 PM EDT Pt calls w/ the following: PCP recommending he resume Plavix. Any objections from your standpoint? Would you recommend he get the flu shot? Noemy hCicas RN documented in this encounterSelect Medical [facility]10-24-2024 Telephone encounter Note * Telephone Encounter - Lo Hancock MD - 12/29/2023 4:54 PM EDT Both sound good. [facility]-24-2024 Telephone encounter Note* Telephone Encounter - Noemy Chicas RN - 12/29/2023 3:00 PM EDT Pt calls w/ the following: PCP recommending he resume Plavix. Any objections from your standpoint? Would you recommend he get the flu shot? Noemy Chicas RN [facility]10-24-2024 History of Present illness Narrative* Dick Miranda MD - 12/29/2023 2:26 PM EDTAssociated Problem(s): 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) Follow with specialists. * Dick Miranda MD - 12/29/2023 2:26 PM EDTAssociated Problem(s): Primary insomnia Sleeping well with trazodone and continue. * Dick Miranda MD - 12/29/2023 2:26 PM EDTAssociated Problem(s): PAD (peripheral artery disease) (CMS/HCC) Worsening claudication and contact oncology about resuming plavix. Increase ambulation. * Dick Miranda MD - 12/29/2023 2:25 PM EDTAssociated Problem(s): Chemotherapy- induced neuropathy (CMS/HCC) Worsening pain and discussed options. Suggested trial of lyrica but patient declined. * Dick Miranda MD - 12/29/2023 1:30 PM EDT Images from the original note were not included. Subjective Patient ID: Erin Pena is a 68 y.o. male who presents for Leg Pain and Foot Injury (Cut on heal). Follow up lung cancer, PVD, and insomnia. Patient had 3rd dose chemo and will continue immune-therapy. Will have follow up PET scan and CT in several weeks. Developed pain in legs. Pain in both legs from waist down and into feet. Pain in both calves with walking. Frequently need to stop and rest due to pain. Tried neurontin and caused confusion and stopped. History of PVD and on plavix. Vascular monitors. Off plavix for procedure and never resumed. Continues to have pain with ambulation and claudication. Sleeping well with trazodone. Dose increased and helps. Review of Systems Constitutional: Negative for fatigue. Respiratory: Negative for cough, shortness of breath and wheezing. Cardiovascular: Negative for chest pain and palpitations. Gastrointestinal: Negative for abdominal pain, diarrhea, nausea and vomiting. Genitourinary: Negative for dysuria. Objective Physical Exam Constitutional: General: He is not in acute distress. Appearance: Normal appearance. HENT: Head: Normocephalic. Right Ear: Tympanic membrane and ear canal normal. Left Ear: Tympanic membrane and ear canal normal. Eyes: Extraocular Movements: Extraocular movements intact. Pupils: Pupils are equal, round, and reactive to light. Cardiovascular: Rate and Rhythm: Normal rate and regular rhythm. Heart sounds: No murmur heard. No friction rub. No gallop. Pulmonary: Breath sounds: Normal breath sounds. No wheezing, rhonchi or rales. Abdominal: General: Bowel sounds are normal. There is no distension. Palpations: Abdomen is soft. Tenderness: There is no abdominal tenderness. There is no guarding or rebound. Musculoskeletal: Left lower leg: No edema. Neurological: Mental Status: He is alert. Assessment/Plan Problem List Items Addressed This Visit PAD (peripheral artery disease) (CMS/HCC) Worsening claudication and contact oncology about resuming plavix. Increase ambulation. Primary insomnia Sleeping well with trazodone and continue. 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 Chemotherapy-induced neuropathy (CMS/HCC) Worsening pain and discussed options. Suggested trial of lyrica but patient declined. documented in this encounterSaint [facility]–Barry [id number] Telephone encounter Note* Telephone Encounter - Shilpi Centeno RN - 12/28/2023 10:56 AM EDT Please review and sign pended Potassium script for patient Potassium 3.3 today. Thank you, Shilpi Centeno RN [facility]10-23-2024 Miscellaneous Notes* Telephone Encounter - Shilpi Centeno RN - 12/28/2023 10:56 AM EDT Please review and sign pended Potassium script for patient Potassium 3.3 today. Thank you, Shilpi Centeno RN documented in this encounterSelect [facility] Instructions* Patient Instructions* Nieves Smith - 12/28/2023 10:12 AM EDT Proceed C3 D1 Carbo/Taxol + Nivo today Decrease Taxol to 175 and Carbo AUC to 5 Start Ritalin 10mg BID CT CAP in 4 weeks Proceed with surgery per Dr. Oreilly RTC with me in 9 weeks Labs same day documented in this encounterSelect Medical [facility]10-[facility] History of Present illness Narrative* Lo Hancock MD - 12/28/2023 9:30 AM EDT Images from the original note were not included. NAME: Erin Pena [facility] NO.: [id number] DATE OF SERVICE: December 28, 2023 (Khadijah) Some elements in this clinic note that are critical to medical decision making have been carefully reviewed and included from a prior clinic note dated: December 07, 2023 (Khadijah) Referring Provider: Gerald Abdi MD Additional Clinicians involved in Erin Pena's care: Dr. 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 Bronchoscopy - mediastinal and hilar LN's negative. LLL bx + Squamous cell carcinoma. Comleting neoadjuvant chemo / IO late December 2023. PLAN: Proceed C3 D1 Carbo/Taxol + Nivo today Decrease Taxol to 175 and Carbo AUC to 5 Start Ritalin 10mg BID CT CAP in 4 weeks Proceed with surgery per Dr. Oreilly RTC with me in 9 weeks Labs same day HPI: CASE HISTORY: Reverse Chronological Order 11/16/2023-12/28/2023 - 3 cycles of Carbo/Taxol + Nivo q 3 weeks 11/01/2023 - Bronchoscopy: with Dr. Craig Cytology: 5 lymph nodes: Negative for malignant cells. Benign lymphoid sample 10/21/2023 - PET/CT: Abnormal uptake confined to the left upper lobe mass without evidence for metastatic disease. 10/05/2023 - Lung, left lower lobe, core biopsy: at [facility] - Invasive squamous cell carcinoma Comment: In order to classify the neoplasm, immunohistochemical staining is performed on 1B and demonstrates that the tumor cells are diffusely positive for AE1/AE3 and p40, and negative for TTF-1 and Napsin A with adequate controls, supporting the above diagnosis 09/28/2023 - CT Chest: 5.2 cm left upper lobe mass with satellite nodule, concerning for malignancy. Focal necrotizing pneumonia felt less likely but could appear similarly in the appropriate clinical setting. 09/28/2023 - MRI Brain: No acute intracranial findings. 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 09/27/2023 - CTA Neck: Partially visualized lobulated left lower lobe pulmonary mass measuring up to 4.8 cm highly concerning for malignancy. Complete CT chest examination recommended for further evaluation. 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 Mild (less than 50%) luminal narrowing of the proximal left internal carotid artery. 09/27/2023-09/29/2023 - Admitted at [facility] with left sided weakness, slurred speech - stroke workup negative 09/25/2023 - ER for bilateral leg weakness Updated Visit, December 28, 2023: Sergio and his , Mandy, return for his third and final planned cycle of Carbo/Taxol + Nivo. He complains of worsening dyspnea on exertion and productive coughing. He has gained weight recently - admits he is eating more now that he has stopped smoking. Lungs sound clear in all four quadrants. Worsening anemia and weight gain may be the cause of dyspnea. It is unlikely he has pneumonitis given his symptoms but advised him to contact the office dyspnea continues. He also endorses irritability which he feels is due to gabapentin - will discontinue. He has been prescribed Ritalin in the past to manage mood disorders - will send a new prescription. 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 He has not been diagnosed with diabetes although will be seeing his PCP soon to consider treatment for pre-diabetes. They are going to a football game in [place] around [facility], will complete CT CAP and surgery when he returns from his trip. Updated Visit, December 07, 2023: Sergio returns with Mandy for treatment. He endorses feeling like he was hit by a truck starting on the third day following treatment. He experiences nausea, vomiting, and acid reflux at night. I recommended he sleep with his head elevated and start his antiemetics today. He is treating neuropathywith gabapentin, is improving now. I will reduce his chemotherapy dose to manage toxicity. He has lost his hair due to treatment. Updated Visit, November 16, 2023: Sergio returns with aMndy to begin Carbo/Taxol + Nivo. He underwent a bronchoscopy on 10/31 - negative for rowena involvement. Plan for 3 cycles of treatment prior to resection. He is slightly anemic today, will check iron studies on Day 10 with david counts. Initial Visit, October 21, 2023: Erin Pena presents today for a Hematology and Oncology evaluation and second opinion.He is joined by his , Mandy. 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 He completed a PET/CT this morning which shows confined uptake in the left lung without metastatic disease. I recommended chemo+immuno treatment followed by surgery once staging studies are completed. He will also need PFTs to give predictive capacity following a potential resection. He is in agreement to start after staging is complete. Will refer him to Drs. Craig and Afia forsurgical evaluation. 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 Erin's [id number] is Arie Baker, who is my patient also. REVIEW OF SYSTEMS Per HPI and otherwise negative by full review of organ systems. ECOG PERFORMANCE STATUS: 1 PHYSICAL EXAMINATION: Vitals: BP 134/56 Pulse 72 Temp (Src) 97.2 (Temporal) Resp 16 Ht 5' 5.551 (1.67m) Wt 191lb 2.2 oz (86.7kg) SpO2 99% BMI 31.27 kg/(m^2). Body surface area is 2 meters squared. Exam limited to gross visualization where appropriate. Gen.: This is an age-appropriate patient in no acute distress. Head: Appears atraumatic with no visible lesions. Eyes: Pupils equally round and reactive to light, extraocular muscles are intact. Neck: Supple. Respiratory: Appears to be respiring comfortably. Lungs are clear in all four quadrant. Neurologic: Nonfocal to gross visualization. Alert and oriented 3. Psychiatric: No evidence of inappropriate anxiety or depression. Skin: Visible areas of skin without rash, lesions, wounds or petechiae. ALLERGIES: ALLERGIES Allergen Reactions Sulfa (Sulfonamide * Unknown Unkown, was a child MEDICATIONS: traZODone (DESYREL) 100 mg tablet^Take 1 tablet by mouth daily at bedtime.^Disp: ^Rfl: 0 (Patient taking differently: Take 100 mg by mouth daily at bedtime. 2 tabs at bedtime) ondansetron (ZOFRAN) 8 mg tablet^Take 1 tablet by mouth every 8 hours as needed for nausea/vomiting.^Disp: 90 tablet^Rfl: 1 prochlorperazine (COMPAZINE) 10 mg tablet^Take 1 tablet by mouth every 6 hours as needed.^Disp: 100tablet^Rfl: 1 Cetirizine 10 mg cap^Take 10 mg by mouth once daily.^Disp: ^Rfl: albuterol HFA (PROVENTIL HFA, VENTOLIN HFA) 90 mcg/actuation inhaler^Inhale 2 Puffs as instructed every 6 hours as needed.^Disp: ^Rfl: propranolol (INDERAL) 20 mg tablet^TAKE 1 TABLET BY MOUTH NEEDED FOR ANXIETY ATTACKS ONCE A DAY^Disp: ^Rfl: sildenafil (VIAGRA) 100 mg tablet^Take 100 mg by mouth at bedtime as needed.^Disp: ^Rfl: terazosin (HYTRIN) 1 mg capsule^Take 1 mg by mouth daily at bedtime.^Disp: ^Rfl: vitamin E, dl,tocopheryl acet, (VITAMIN E, DL, ACETATE,) 45 mg (100 unit) capsule^Take 400 Units bymouth once daily.^Disp: ^Rfl: metFORMIN (GLUCOPHAGE) 850 mg tablet^Take 850 mg by mouth daily with breakfast.^Disp: ^Rfl: losartan (COZAAR) 100 mg tablet^Take 100 mg by mouth once daily.^Disp: ^Rfl: krill oil 500 mg cap^Take 1 capsule by mouth once daily.^Disp: ^Rfl: hydroCHLOROthiazide 50 mg tablet^Take 50 mg by mouth once daily.^Disp: ^Rfl: glucosamine HCl 750 mg tab^Take 1 tablet by mouth once daily.^Disp: ^Rfl: cholecalciferol (VITAMIN D3) 1,000 unit tab tablet^Take 1,000 Units by mouth once daily.^Disp: ^Rfl: atorvastatin (LIPITOR) 40 mg tablet^Take 40 mg by mouth once daily.^Disp: ^Rfl: aspirin, enteric coated (ASPIRIN, ENTERIC COATED) 81 mg EC tablet^Take 81 mg by mouth once daily.^Disp: ^Rfl: nicotine (NICODERM) 21 mg/24 hr^Apply 1 Patch as directed.^Disp: ^Rfl: levothyroxine (SYNTHROID) 175 mcg tablet^Take 175 mcg by mouth daily before breakfast. ^Disp: ^Rfl: ascorbic acid (VITAMIN C) 500 mg tablet^Take 500 mg by mouth once daily. ^Disp: ^Rfl: multivitamin tablet^Take 1 tablet by mouth once daily. ^Disp: ^Rfl: methylphenidate (RITALIN) 10 mg tablet^Take 1 tablet by mouth two times a day for 30 days.^Disp: 60tablet^Rfl: 0 iv contrast (will be provided with radiology test)^CT Chest ABD/PEL-Inject, intravenously, once for1 dose.No IV access, insert saline lock prior to the beginning of sedation, infusion, injection of imaging exam. Discontinue saline lock post exam. If Pt. has a central line or IVAD, may access for administration according to line specific nursing protocol. Once exam is complete flush line and de-access according to line specific nursing protocol in the CT contrast administration guidelines link.^Disp: 1 Each^Rfl: 0 enteric contrast (will be provided with radiology test)^For CT CHESTABD/PEL W IVCON Routine order Administer, As Directed One Time Only, via Oral, Rectal, both Oral and Rectal, Enteric Tube, Stoma orIndwelling Catheter, Enteric Contrast as designated per enteric contrast guidelines^Disp: 1 Each^Rfl: 0 LABORATORY VALUES: WBC (k/uL) Date Value 12/28/2023 8.24 RBC (m/uL) Date Value 12/28/2023 3.54 (L) Hemoglobin (g/dL) Date Value 12/28/2023 10.4 (L) Hematocrit (%) Date Value 12/28/2023 31.0 (L) MCV (fL) Date Value 12/28/2023 87.6 MCH (pg) Date Value 12/28/2023 29.4 MCHC (g/dL) Date Value 12/28/2023 33.5 RDW-CV (%) Date Value 12/28/2023 15.3 (H) Platelet Count (k/uL) Date Value 12/28/2023 347 MPV (fL) Date Value 12/28/2023 9.1 Glucose (mg/dL) Date Value 12/28/2023 139 (H) BUN (mg/dL) Date Value 12/28/2023 13 Creatinine (mg/dL) Date Value 12/28/2023 0.72 (L) Sodium (mmol/L) Date Value 12/28/2023 139 Potassium (mmol/L) Date Value 12/28/2023 3.3 (L) Chloride (mmol/L) Date Value 12/28/2023 98 CO2 (mmol/L) Date Value 12/28/2023 30 Protein, Total (g/dL) Date Value 12/28/2023 6.4 Albumin (g/dL) Date Value 12/28/2023 4.2 Calcium, Total (mg/dL) Date Value 12/28/2023 8.8 Alkaline Phosphatase (U/L) Date Value 12/28/2023 72 Bilirubin, Total (mg/dL) Date Value 12/28/2023 0.2 AST (U/L) Date Value 12/28/2023 20 ALT (U/L) Date Value 12/28/2023 26 DIAGNOSIS: (C34.12) Malignant neoplasm of upper lobe of left lung (HCC) (primary encounter diagnosis) Plan: CT ABD/PEL W IVCON, CT CHEST W IVCON, iv contrast (will be provided with radiology test), enteric contrast (will be provided with radiology test), COMPLETE BLOOD COUNT AND DIFFERENTIAL, COMPREHENSIVE METABOLIC PANEL (R53.81, R53.83) Malaise and fatigue Plan: methylphenidate (RITALIN) 10 mg tablet (F90.2) Attention deficit hyperactivity disorder (ADHD), combined type Plan: methylphenidate (RITALIN) 10 mg tablet (C34.90) Malignant neoplasm of lung, unspecified laterality, unspecified part of lung (HCC) Plan: CT ABD/PEL W IVCON, CT CHEST W IVCON, iv contrast (will be provided with radiology test), enteric contrast (will be provided with radiology test), COMPLETE BLOOD COUNT AND DIFFERENTIAL, COMPREHENSIVE METABOLIC PANEL PAST MEDICAL HISTORY Diagnosis Date Chronic obstructive pulmonary disease (HCC) 10/20/2023 Hypertension Hypothyroidism Lung cancer (HCC) 2023 refBy [place] Other affections of shoulder region, not elsewhere classified 03/14/2012 PAST SURGICAL HISTORY Procedure Laterality Date APPENDECTOMY BRAIN SURGERY HX COLONSCOPY SCREENING HIGH RISK FINGER AMPUTATION (SPECIFY DIGIT) HX HAND SURGERY HX HEMORROIDECTOMY INTERNAL LUNG BIOPSY Left NECK SURGERY HX PAST SURGICAL HISTORY OF Heart cath REMV CATARACT EXTRACAP,INSERT LENS S KIT CRAINIOTOMY [id number] SHOULDER ARTHROSCOPY/SURG TYMPANOSTOMY GENERAL ANESTHESIA XR CERVICAL FUSION OR C4 fusion Social History Tobacco Use Smoking status: Former Current packs/day: 0.00 Average packs/day: 0.5 packs/day for 50.0 years (25.0 ttl pk-yrs) Types: Cigarettes Start date: 09/22/1973 Quit date: 09/23/2023 Years since quittin.2 Passive exposure: Current Smokeless tobacco: Never Tobacco comments: Quit September 26 Vaping Use Vaping status: Former Substance Use Topics Alcohol use: No Drug use: No FAMILY HISTORY Problem Relation Age of Onset Stroke Mother Cancer Mother Heart disease Father Hypertension Father Stroke Paternal Grandmother Anesthesia Problems No Family History I spent a total of 40 minutes on the date of the service which included preparing to see the patient, [id number] patient care, completing clinical documentation, obtaining and/or reviewing separately obtained history, performing a medically appropriate examination, counseling and educating the pat ient/family/caregiver, ordering medications, tests, or procedures, communicating with other HCPs (not separately reported), independently interpreting results (not separately reported), communicatingresults to the patient/family/caregiver, and care coordination (not separately reported). Lo Hancock MD, CPE Hematology and Oncology Services Provided at: [place], [place] Scribe Attestation: This note was scribed by Nieves Smith on December 28, 2023 under the direction and supervision of Dr. Lo Hancock. I attest that all of the information documented is correct to the best of myknowledge. Provider Attestation: I, Lo Hancock MD, attest that all information documented by the above scribe is correct, and was supervised by me and under my direction. CC: Gerald Abdi [address] [facility] [address] [facility] [address] Basia Vega MD [address] [facility] [id number] Savanah Oreilly MD documented in this encounterSelect Medical [facility] [facility]10[facility] Telephone encounter Note* Telephone Encounter - Anna Rasmussen RN - 12/26/2023 9:38 AM EDT Palliative Medicine at Home Care Coordination New Patient Note Nurse introduced self and role of Data Integrity Analyst in Palliative Medicine. Reviewed contact sheet information and on-call process. Nurse educated patient on medication refill process. Nurse encouraged patient to call with any questions/concerns/symptom related issues. Anna Rasmussen RN [facility]10-21-2024 Miscellaneous Notes* Telephone Encounter - Anna Rasmussen RN - 12/26/2023 9:38 AM EDT Palliative Medicine at Home Care Coordination New Patient Note Nurse introduced self and role of Data Integrity Analyst in Palliative Medicine. Reviewed contact sheet information and on-call process. Nurse educated patient on medication refill process. Nurse encouraged patient to call with any questions/concerns/symptom related issues. Anna Rasmussen RN * Telephone Encounter - Anna Rasmussen RN - 12/26/2023 9:32 AM EDT Palliative Medicine Care Coordination Follow up Phone Call Patient identified by name and : Yes Spoke to patient about the medications for Gabapentin and trazodone. He report they do have enough trazodone at home but there was an increase in the gabapentin from 100 to 200 mg at bedtime. Let patient and his know that the Gabapentin 100 mg capsule has a refill and they should picker feeder and take 100 mg, taking 2 capsules to equal 200 mg at bedtime. Introduction and contact MC message sent also since they did not have yet our contact information. Both verbalized understanding. Anna Rasmussen RN December 26, 2023 9:38 AM documented in this encounterSelect [facility] Telephone encounter Note * Telephone Encounter - Anna Rasmussen RN - 12/26/2023 9:32 AM EDT Palliative Medicine Care Coordination Follow up Phone Call Patient identified by name and : Yes Spoke to patient about the medications for Gabapentin and trazodone. He report they do have enough trazodone at home but there was an increase in the gabapentin from 100 to 200 mg at bedtime. Let patient and his know that the Gabapentin 100 mg capsule has a refill and they should picker feeder and take 100 mg, taking 2 capsules to equal 200 mg at bedtime. Introduction and contact MC message sent also since they did not have yet our contact information. Both verbalized understanding. Anna Rasmussen RN December 26, 2023 9:38 AM [facility]-18-2024 Telephone encounter Note* Telephone Encounter - Noemy Chicas RN - 12/23/2023 4:46 PM EDT Pt notified and verbalizes understanding. Noemy Chicas RN [facility] Work Phone: 1(976) 715-508010-18-2024 Miscellaneous Notes* Telephone Encounter - Noemy Chicas RN - 12/23/2023 4:46 PM EDT Pt notified and verbalizes understanding. Noemy Chicas RN * Telephone Encounter - Lo Hancock MD - 12/23/2023 4:40 PM EDT Yes - HgbA1c doesn't always predict the neuropathy and should only be checked every 3 months. * Telephone Encounter - Noemy Chicas RN - 12/23/2023 3:50 PM EDT Pt reports the numbness and tingling in his legs is getting worse. States he's been told he's prediabetic. Voices concerns that his symptoms could be related diabetes. Requests to have his Hgb A1C drawn when here next week. Pt has been following w/ vascular medicine for his current symptoms. Per pt's records, he just had a Hgb A1C drawn on 11/29/23. Results were 6.1. Informed pt that we would not normally draw one so soon. Advised he reach out to his vascular team and inform them of his worsening symptoms. Pt verbalizes understanding. Do you agree? Noemy Chicas RN documented in this encounterSelect Medical [facility]-20[facility] Telephone encounter Note * Telephone Encounter - Lo Hancock MD - 12/23/2023 4:40 PM EDT Yes - HgbA1c doesn't always predict the neuropathy and should only be checked every 3 months. [facility]-18-2024 Telephone encounter Note* Telephone Encounter - Noemy Chicas RN - 12/23/2023 3:50 PM EDT Pt reports the numbness and tingling in his legs is getting worse. States he's been told he's prediabetic. Voices concerns that his symptoms could be related diabetes. Requests to have his Hgb A1C drawn when here next week. Pt has been following w/ vascular medicine for his current symptoms. Per pt's records, he just had a Hgb A1C drawn on 11/29/23. Results were 6.1. Informed pt that we would not normally draw one so soon. Advised he reach out to his vascular team and inform them of his worsening symptoms. Pt verbalizes understanding. Do you agree? Noemy Chicas RN [facility]-18-2024 Instructions* Patient Instructions* Joey Scott APRN.CNP - 12/23/2023 1:42 PM EDT Joey Scott CNP Department of Palliative and Supportive Care Palliative Care - Specialty services in symptom management and support For questions or prescription refills, call: [phone] Tuesday - Tuesday 9AM-5PM KRISTINA Alba, RN - Data Integrity Analyst Please call 3-5 days in advance for medication refills Evenings, Weekends, Holidays: [phone] (ask for palliative medicine on-call provider) For appointments, cancellations or reschedule, call: [phone] documented in this encounterSelect Medical [facility]10-18-20[address] NoteSt[address] 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 Current tx Carbo/Taxol + Nivo q3 weeks, may have surgical resection when laura adjuvent therapy complete I met with Sergio and his in clinic, he is alert oriented x 3 no acute distress. Long-term chronic pain patient managed by his PCP pain has increased some since starting chemotherapy but it is still managed to his satisfaction with current medication regimen and he would like to stay with his primary care to control his pain. He does feel 100 mg gabapentin has improved his bilateral foot numbness, but it is still bothersome. Admits to increased anxiety with diagnosis, is not sleeping well at night he is using trazodone 50 mg, has been on this dosage for a long time. Appetite is good, in fact he has gained weight, no edema or increased shortness of breath. No constipation or diarrhea. Positive intermittent nausea controlled with Zofran PAST MEDICAL HISTORY: PAST MEDICAL HISTORY Diagnosis Date Chronic obstructive pulmonary disease (HCC) 10/20/2023 Hypertension Hypothyroidism Lung cancer (HCC) 2023 refBy [place] Other affections of shoulder region, not elsewhere classified 03/14/2012 PAST SURGICAL HISTORY: PAST SURGICAL HISTORY Procedure Laterality Date APPENDECTOMY BRAIN SURGERY HX COLONSCOPY SCREENING HIGH RISK FINGER AMPUTATION (SPECIFY DIGIT) HX HAND SURGERY HX HEMORROIDECTOMY INTERNAL LUNG BIOPSY Left NECK SURGERY HX PAST SURGICAL HISTORY OF Heart cath REMV CATARACT EXTRACAP,INSERT LENS S KIT CRAINIOTOMY [id number] SHOULDER ARTHROSCOPY/SURG TYMPANOSTOMY GENERAL ANESTHESIA XR CERVICAL FUSION OR C4 fusion CURRENT MEDICATIONS: gabapentin (NEURONTIN) 100 mg capsule Take 1 capsule by mouth daily at bedtime for 60 days. ondansetron (ZOFRAN) 8 mg tablet Take 1 tablet by mouth every 8 hours as needed for nausea/vomiting. prochlorperazine (COMPAZINE) 10 mg tablet Take 1 tablet by mouth every 6 hours as needed. Cetirizine 10 mg cap Take 10 mg by mouth once daily. albuterol HFA (PROVENTIL HFA, VENTOLIN HFA) 90 mcg/actuation inhaler Inhale 2 Puffs as instructed every 6 hours as needed. HYDROcodone-Acetaminophen (NORCO) 7.5-325 mg per tablet Take 1 tablet by mouth every 6 hours as needed. propranolol (INDERAL) 20 mg tablet TAKE 1 TABLET BY MOUTH NEEDED FOR ANXIETY ATTACKS ONCE A DAY sildenafil (VIAGRA) 100 mg tablet Take 100 mg by mouth at bedtime as needed. terazosin (HYTRIN) 1 mg capsule Take 1 mg by mouth daily at bedtime. traZODone (DESYREL) 50 mg tablet Take 50 mg by mouth daily at bedtime. vitamin E, dl,tocopheryl acet, (VITAMIN E, DL, ACETATE,) 45 mg (100 unit) capsule Take 400 Units bymouth once daily. metFORMIN (GLUCOPHAGE) 850 mg tablet Take 850 mg by mouth daily with breakfast. meloxicam (MOBIC) 7.5 mg tablet Take 1 tablet by mouth once daily. losartan (COZAAR) 100 mg tablet Take 100 mg by mouth once daily. krill oil 500 mg cap Take 1 capsule by mouth once daily. hydroCHLOROthiazide 50 mg tablet Take 50 mg by mouth once daily. glucosamine HCl 750 mg tab Take 1 tablet by mouth once daily. cholecalciferol (VITAMIN D3) 1,000 unit tab tablet Take 1,000 Units by mouth once daily. atorvastatin (LIPITOR) 40 mg tablet Take 40 mg by mouth once daily. aspirin, enteric coated (ASPIRIN, ENTERIC COATED) 81 mg EC tablet Take 81 mg by mouth once daily. nicotine (NICODERM) 21 mg/24 hr Apply 1 Patch as directed. levothyroxine (SYNTHROID) 175 mcg tablet Take 175 mcg by mouth daily before breakfast. ascorbic acid (VITAMIN C) 500 mg tablet Take 500 mg by mouth once daily. multivitamin tablet Take 1 tablet by mouth once daily. ALLERGIES: ALLERGIES Allergen Reactions Sulfa (Sulfonamide * Unknown Unkown, was a child FAMILY HISTORY: FAMILY HISTORY Problem Relation Age of Onset Stroke Mother Cancer Mother Heart disease Father Hypertension Father Stroke Paternal Grandmother Anesthesia Problems No Family History SOCIAL HISTORY: Drug Use: No Alcohol Use: No Tobacco Use: Types: Cigarettes REVIEW OF SYSTEMS: Modified ESAS ([place] Symptom Assessment Scale): Information Provided By: Patient and Family member Pain: Moderate Nausea: Mild Loss of Appetite: None Constipation: None Shortness of Breath: Mild Drowsiness: None Tiredness: Mild Depression: None Anxiety: Mild Review of Systems Constitutional: Negative for activity change, appetite change and unexpected weight change. HENT: Negative for trouble swallowing and voice change. Eyes: Negative for pain, discharge and visual disturbance. Respiratory: Negative for cough, chest tightness and shortness of breath. Cardiovascular: Negative for chest pain, palpitations and leg swelling. Gastrointestinal: Negative for abdominal distention, abdominal pain, blood in stool, diarrhea and nausea. Endocrine: Negative for polyuria. Genitourinary: Negative for difficulty urinating, dysuria, enuresis and hematuria. Skin: Negative. Neurological: Negative for dizziness, tremors, speech difficulty, weakness and headaches. Psychiatric/Behavioral: Negative for confusion, sleep disturbance and suicidal ideas. The patient is not nervous/anxious. All other systems reviewed and are negative. Objective ECOG PERFORMANCE STATUS: 1- Restricted in physically strenuous activity. Carries out light duty. PHYSICAL EXAMINATION: Vital signs: There were no vitals taken for this visit. Last 1 Encounter Temp Readings: Date: Temp: Temp Src: 12/07/2023 36.6 C (97.8 F) Temporal Last 1 Encounter Resp Readings: Date: Resp: 12/07/2023 16 Last 1 Encounter Pulse Readings: Date: Pulse: 12/07/2023 73 Last 1 Encounter BP Readings: Date: BP: 12/07/2023 158/73 Physical Exam Constitutional: Appearance: He is well-groomed. HENT: Head: Normocephalic and atraumatic. Jaw: There is normal jaw occlusion. Right Ear: Hearing and external ear normal. Left Ear: Hearing and external ear normal. Nose: Nose normal. Mouth/Throat: Lips: [place]. Mouth: Mucous membranes are moist. No oral lesions. Eyes: General: Lids are normal. Gaze aligned appropriately. Extraocular Movements: Extraocular movements intact. Conjunctiva/sclera: Conjunctivae normal. Neck: Thyroid: No thyroid mass. Cardiovascular: Rate and Rhythm: Normal rate and regular rhythm. Pulses: Normal pulses. Heart sounds: Normal heart sounds. Pulmonary: Effort: Pulmonary effort is normal. Breath sounds: Examination of the left-upper field reveals decreased breath sounds. Decreased breath sounds present. Abdominal: General: Abdomen is flat. Bowel sounds are normal. Palpations: Abdomen is soft. Musculoskeletal: General: No swelling, tenderness or deformity. Normal range of motion. Right shoulder: Normal. Left shoulder: Normal. Right upper arm: Normal. Left upper arm: Normal. Cervical back: Full passive range of motion without pain. Right lower leg: No edema. Left lower leg: No edema. Skin: General: Skin is warm and dry. Capillary Refill: Capillary refill takes less than 2 seconds. Findings: No rash. Neurological: General: No focal deficit present. Mental Status: He is alert and oriented to person, place, and time. Psychiatric: Attention and Perception: Attention normal. Mood and Affect: Mood normal. Speech: Speech normal. Behavior: Behavior normal. Behavior is cooperative. Thought Content: Thought content normal. Cognition and Memory: Cognition and memory normal. Judgment: Judgment normal. DATA: Diagnostic tests reviewed for today's visit: Most recent labs and imaging results. Estimated Creatinine Clearance: 96.6 mL/min (based on SCr of 0.74 mg/dL). 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 at bedtime - increase trazodone to 100 mg at bedtime (F41.9) Anxiety - Trazodone 100 mg po at hs - Gabapentin may help Some elements copied from oncology note on 12/07/23, the elements have been updated and all reflect current decision making from today, 12/23/2023. Existence of Advance Directives: No - not interested Next Visit:3 Months in person Recommendations will be communicated back to the consulting service by way of shared electronic medical record. Joey Scott NP, [employer] December 23, 2023 11:53 AM I spent a total of 45 minutes on the date of the service which included preparing to see the patient, [id number] patient care, completing clinical documentation, obtaining and/or reviewing separately obtained history, performing a medically appropriate examination, counseling and educating the pat ient/family/caregiver, ordering medications, tests, or procedures, communicating with other HCPs (not separately reported), independently interpreting results (not separately reported), communicatingresults to the patient/family/caregiver, and care coordination (not separately reported). This note may have been partially generated using the Tracky voice recognition system. While every effort was made to correct voice recognition errors, kindly be aware that some errors may occasionally occur. documented in this encounterSelect [facility] [place] [facility] Instructions* Patient Instructions* Nieves Smith - 12/07/2023 10:18 AM EDT Proceed C2 Day1 Carbo/Taxol + Nivo today q 3 weeks x1 Decrease Taxol to 175 and Carbo AUC to 5 RTC with me in 3 weeks for C3 treatment Labs same day documented in this encounterSelect Medical [place] [facility] History of Present illness Narrative* Lo Hancock MD - 12/07/2023 9:30 AM EDT Images from the original note were not included. NAME: Erin Pena [facility] NO.: [id number] DATE OF SERVICE: December 07, 2023 (Khadijah) Some elements in this clinic note that are critical to medical decision making have been carefully reviewed and included from a prior clinic note dated: November 16, 2023 (Khadijah) Referring Provider: Gerald Abdi MD Additional Clinicians involved in Erin Saturnino Enrike's care: DIAGNOSIS: Squamous cell lung ca Left upper lobe - cT3 cNx, cM0 - stage IIB. 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 Anticipate neoadjuvant chemo / IO. Bronchoscopy - mediastinal and hilar LN's negative. LLL bx + Squamous cell carcinoma. PLAN: Proceed C2 Day1 Carbo/Taxol + Nivo today q 3 weeks x1 Decrease Taxol to 175 and Carbo AUC to 5 RTC with me in 3 weeks for C3 treatment Labs same day HPI: CASE HISTORY: Reverse Chronological Order 11/16/2023-Current - Carbo/Taxol + Nivo q 3 weeks (plan for 3 cycles) 11/01/2023 - Bronchoscopy: with Dr. Craig Cytology: 5 lymph nodes: Negative for malignant cells. Benign lymphoid sample 10/21/2023 - PET/CT: Abnormal uptake confined to the left upper lobe mass without evidence for metastatic disease. 10/05/2023 - Lung, left lower lobe, core biopsy: at [facility] - Invasive squamous cell carcinoma Comment: In order to classify the neoplasm, immunohistochemical staining is performed on 1B and demonstrates that the tumor cells are diffusely positive for AE1/AE3 and p40, and negative for TTF-1 and Napsin A with adequate controls, supporting the above diagnosis 09/28/2023 - CT Chest: 5.2 cm left upper lobe mass with satellite nodule, concerning for malignancy. Focal necrotizing pneumonia felt less likely but could appear similarly in the appropriate clinical setting. 09/28/2023 - MRI Brain: No acute intracranial findings. 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 09/27/2023 - CTA Neck: Partially visualized lobulated left lower lobe pulmonary mass measuring up to 4.8 cm highly concerning for malignancy. Complete CT chest examination recommended for further evaluation. 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 Mild (less than 50%) luminal narrowing of the proximal left internal carotid artery. 09/27/2023-09/29/2023 - Admitted at [facility] with left sided weakness, slurred speech - stroke workup negative 09/25/2023 - ER for bilateral leg weakness Updated Visit, December 07, 2023: Sergio returns with Mandy for treatment. He endorses feeling like he was hit by a truck starting on the third day following treatment. He experiences nausea, vomiting, and acid reflux at night. I recommended he sleep with his head elevated and start his antiemetics today. He is treating neuropathywith Gabapentin, is improving now. I will reduce his chemotherapy dose to manage toxicity. He has lost his hair due to treatment. Updated Visit, November 16, 2023: Sergio returns with Mandy to begin Carbo/Taxol + Nivo. He underwent a bronchoscopy on 10/31 - negative for rowena involvement. Plan for 3 cycles of treatment prior to resection. He is slightly anemic today, will check iron studies on Day 10 with david counts. Initial Visit, October 21, 2023: Erin Pena presents today for a Hematology and Oncology evaluation and second opinion.He is joined by his , Mandy. 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 He completed a PET/CT this morning which shows confined uptake in the left lung without metastatic disease. I recommended chemo+immuno treatment followed by surgery once staging studies are completed. He will also need PFTs to give predictive capacity following a potential resection. He is in agreement to start after staging is complete. Will refer him to Drs. Craig and Afia forsurgical evaluation. 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 Erin's [id number] is Arie Baker, who is my patient also. REVIEW OF SYSTEMS Per HPI and otherwise negative by full review of organ systems. ECOG PERFORMANCE STATUS: 1 PHYSICAL EXAMINATION: Vitals: BP 158/73 Pulse 73 Temp (Src) 97.8 (Temporal) Resp 16 Ht 5' 5.551 (1.67m) Wt 186lb 8.2 oz (84.6kg) SpO2 96% BMI 30.52 kg/(m^2). Body surface area is 1.98 meters squared. Exam limited to gross visualization where appropriate. Gen.: This is an age-appropriate patient in no acute distress. Head: Appears atraumatic with no visible lesions. Eyes: Pupils equally round and reactive to light, extraocular muscles are intact. Neck: Supple. Respiratory: Appears to be respiring comfortably. Neurologic: Nonfocal to gross visualization. Alert and oriented 3. Psychiatric: No evidence of inappropriate anxiety or depression. Skin: Visible areas of skin without rash, lesions, wounds or petechiae. ALLERGIES: ALLERGIES Allergen Reactions Sulfa (Sulfonamide * Unknown Unkown, was a child MEDICATIONS: gabapentin (NEURONTIN) 100 mg capsule Take 1 capsule by mouth daily at bedtime for 60 days. ondansetron (ZOFRAN) 8 mg tablet Take 1 tablet by mouth every 8 hours as needed for nausea/vomiting. prochlorperazine (COMPAZINE) 10 mg tablet Take 1 tablet by mouth every 6 hours as needed. Cetirizine 10 mg cap Take 10 mg by mouth once daily. albuterol HFA (PROVENTIL HFA, VENTOLIN HFA) 90 mcg/actuation inhaler Inhale 2 Puffs as instructed every 6 hours as needed. HYDROcodone-Acetaminophen (NORCO) 7.5-325 mg per tablet Take 1 tablet by mouth every 6 hours as needed. propranolol (INDERAL) 20 mg tablet TAKE 1 TABLET BY MOUTH NEEDED FOR ANXIETY ATTACKS ONCE A DAY sildenafil (VIAGRA) 100 mg tablet Take 100 mg by mouth at bedtime as needed. terazosin (HYTRIN) 1 mg capsule Take 1 mg by mouth daily at bedtime. traZODone (DESYREL) 50 mg tablet Take 50 mg by mouth daily at bedtime. vitamin E, dl,tocopheryl acet, (VITAMIN E, DL, ACETATE,) 45 mg (100 unit) capsule Take 400 Units bymouth once daily. metFORMIN (GLUCOPHAGE) 850 mg tablet Take 850 mg by mouth daily with breakfast. meloxicam (MOBIC) 7.5 mg tablet Take 1 tablet by mouth once daily. losartan (COZAAR) 100 mg tablet Take 100 mg by mouth once daily. krill oil 500 mg cap Take 1 capsule by mouth once daily. hydroCHLOROthiazide 50 mg tablet Take 50 mg by mouth once daily. glucosamine HCl 750 mg tab Take 1 tablet by mouth once daily. cholecalciferol (VITAMIN D3) 1,000 unit tab tablet Take 1,000 Units by mouth once daily. atorvastatin (LIPITOR) 40 mg tablet Take 40 mg by mouth once daily. aspirin, enteric coated (ASPIRIN, ENTERIC COATED) 81 mg EC tablet Take 81 mg by mouth once daily. nicotine (NICODERM) 21 mg/24 hr Apply 1 Patch as directed. levothyroxine (SYNTHROID) 175 mcg tablet Take 175 mcg by mouth daily before breakfast. ascorbic acid (VITAMIN C) 500 mg tablet Take 500 mg by mouth once daily. multivitamin tablet Take 1 tablet by mouth once daily. LABORATORY VALUES: WBC (k/uL) Date Value 12/07/2023 9.83 RBC (m/uL) Date Value 12/07/2023 3.59 (L) Hemoglobin (g/dL) Date Value 12/07/2023 10.6 (L) Hematocrit (%) Date Value 12/07/2023 31.3 (L) MCV (fL) Date Value 12/07/2023 87.2 MCH (pg) Date Value 12/07/2023 29.5 MCHC (g/dL) Date Value 12/07/2023 33.9 RDW-CV (%) Date Value 12/07/2023 13.6 Platelet Count (k/uL) Date Value 12/07/2023 380 MPV (fL) Date Value 12/07/2023 8.5 (L) Glucose (mg/dL) Date Value 12/07/2023 178 (H) BUN (mg/dL) Date Value 12/07/2023 15 Creatinine (mg/dL) Date Value 12/07/2023 0.74 Sodium (mmol/L) Date Value 12/07/2023 139 Potassium (mmol/L) Date Value 12/07/2023 3.6 (L) Chloride (mmol/L) Date Value 12/07/2023 96 (L) CO2 (mmol/L) Date Value 12/07/2023 30 Protein, Total (g/dL) Date Value 12/07/2023 7.0 Albumin (g/dL) Date Value 12/07/2023 4.4 Calcium, Total (mg/dL) Date Value 12/07/2023 9.8 Alkaline Phosphatase (U/L) Date Value 12/07/2023 93 Bilirubin, Total (mg/dL) Date Value 12/07/2023 <0.2 (L) AST (U/L) Date Value 12/07/2023 19 ALT (U/L) Date Value 12/07/2023 26 DIAGNOSIS: (C34.12) Malignant neoplasm of upper lobe of left lung (HCC) (primary encounter diagnosis) (Z29.89) Immunotherapy PAST MEDICAL HISTORY Diagnosis Date Chronic obstructive pulmonary disease (HCC) 10/20/2023 Hypertension Hypothyroidism Lung cancer (HCC) 2023 refBy [place] Other affections of shoulder region, not elsewhere classified 03/14/2012 PAST SURGICAL HISTORY Procedure Laterality Date APPENDECTOMY BRAIN SURGERY HX COLONSCOPY SCREENING HIGH RISK FINGER AMPUTATION (SPECIFY DIGIT) HX HAND SURGERY HX HEMORROIDECTOMY INTERNAL LUNG BIOPSY Left NECK SURGERY HX PAST SURGICAL HISTORY OF Heart cath REMV CATARACT EXTRACAP,INSERT LENS S KIT CRAINIOTOMY [id number] SHOULDER ARTHROSCOPY/SURG TYMPANOSTOMY GENERAL ANESTHESIA XR CERVICAL FUSION OR C4 fusion Social History Tobacco Use Smoking status: Former Current packs/day: 0.00 Average packs/day: 0.5 packs/day for 50.0 years (25.0 ttl pk-yrs) Types: Cigarettes Start date: 09/22/1973 Quit date: 09/23/2023 Years since quittin.2 Passive exposure: Current Smokeless tobacco: Never Tobacco comments: Quit September 26 Vaping Use Vaping status: Former Substance Use Topics Alcohol use: No Drug use: No FAMILY HISTORY Problem Relation Age of Onset Stroke Mother Cancer Mother Heart disease Father Hypertension Father Stroke Paternal Grandmother Anesthesia Problems No Family History I spent a total of 30 minutes on the date of the service which included preparing to see the patient, [id number] patient care, completing clinical documentation, obtaining and/or reviewing separately obtained history, performing a medically appropriate examination, counseling and educating the pat ient/family/caregiver, ordering medications, tests, or procedures, communicating with other HCPs (not separately reported), independently interpreting results (not separately reported), communicatingresults to the patient/family/caregiver, and care coordination (not separately reported). Lo Hancock MD, CPE Hematology and Oncology Services Provided at: [place], [place] Scribe Attestation: This note was scribed by Nieves Smith on December 07, 2023 under the direction and supervision of Dr. Lo Hancock. I attest that all of the information documented is correct to the best of my knowledge. Provider Attestation: I, Lo Hancock MD, attest that all information documented by the above scribe is correct, and was supervised by me and under my direction. CC: Gerald Abdi [address] [facility] [address] [facility] [id number] Basia Vega MD [address] [facility] [id number] documented in this encounterSelect Medical [place] [facility]09-[facility] Telephone encounter Note * Telephone Encounter - Noemy Chicas RN - 12/01/2023 3:48 PM EDT Pt notified and verbalizes understanding. Noemy Chicas RN [facility] [place] [facility] Work Phone: [phone] Miscellaneous Notes* Telephone Encounter - Noemy Chicas RN - 12/01/2023 3:48 PM EDT Pt notified and verbalizes understanding. Noemy Chicas RN * Telephone Encounter - Lo Hancock MD - 12/01/2023 3:19 PM EDT Teeth cleaning is fine. * Telephone Encounter - Noemy Chicas RN - 11/29/2023 1:21 PM EDT Pt scheduled to have his teeth cleaned next week. Is he ok to proceed? Noemy Chicas RN documented in this encounterSelect Medical [facility]24 Telephone encounter Note * Telephone Encounter - Lo Hancock MD - 12/01/2023 3:19 PM EDT Teeth cleaning is fine. [facility] [place] [facility]-24-[facility]24 Telephone encounter Note* Telephone Encounter - Amanda Munoz HUC - 11/29/2023 1:34 PM EDT I called and spoke with the Patient, and have him scheduled to see Sharona for Pall Med on Tue12/23/23at 1 pm. ALIVIA Saini [facility] [place] [facility]09-24-2024 Miscellaneous Notes* Telephone Encounter - Amanda Munoz HUC - 11/29/2023 1:34 PM EDT I called and spoke with the Patient, and have him scheduled to see Sharona for Pall Med on Tue12/23/23at 1 pm. ALIVIA Saini * Telephone Encounter - Noemy Chicas RN - 11/29/2023 1:13 PM EDT Pt notified and reports that he no longer takes Meloxicam. Agrees to Neurontin and Pall Med. Informed pt that a script was sent to his local [place] pharmacy. Clerical: Please schedule pt w/ Joey for pall med. Thanks! Noemy Chicas, RN * Telephone Encounter - Lo Hancock MD - 11/29/2023 12:31 PM EDT Let's give him neurontin 100 mg at night. He's already on Mobic, so avoid ibuprofen or motrin Pall med would be helpful as he's on quite a few other meds as well. * Telephone Encounter - Noemy Chicas RN - 11/29/2023 9:50 AM EDT Pt calls to report the following side effect concerns. Pt c/o new numbness/tingling to his hands and feet. Most noticeable at night. Pt has a h/o PVD, buthas never had neuropathy w/ it. Symptoms keeping him up at night. Took Tylenol PM last night beforebed but it did nothing. Explained to pt that peripheral neuropathy is a possible side effect of treatment. Bobby: What would you advise? 2. FYI: Pt c/o increased fatigue. Rates his fatigue 6-7/10. States he is able to remain active in and outside of the home. Admits he did spend a few days on the couch. Still able to complete his ADLsindependently. Informed pt that fatigue is an expected side effect of treatment. Encouraged pt to remain as active as tolerated, but allow time for frequent rest and naps if needed. Pt verbalizes understanding. 3. FYI: Pt reports his scalp is tender. Reports some hair loss. Informed pt that it is normal for the scalp to be tender as the hair is coming out. Advised he take ibuprofen if able or tylenol OTC. Reassured pt that this symptom would improve once the hair is done shedding. Pt verbalizes understanding. Noemy Chicas RN documented in this encounterSelect Medical [place] [facility] Telephone encounter Note * Telephone Encounter - Noemy Chicas RN - 11/29/2023 1:21 PM EDT Pt scheduled to have his teeth cleaned next week. Is he ok to proceed? Noemy Chicas RN [facility] [place] [facility]-24-[facility]24 Telephone encounter Note* Telephone Encounter - Noemy Chicas RN - 11/29/2023 1:13 PM EDT Pt notified and reports that he no longer takes Meloxicam. Agrees to Neurontin and Pall Med. Informed pt that a script was sent to his local [place] pharmacy. Clerical: Please schedule pt w/ Joey for pall med. Thanks! Noemy Chicas RN [facility] [place] [facility] Work Phone: [phone] Telephone encounter Note* Telephone Encounter - Lo Hancock MD - 11/29/2023 12:31 PM EDT Let's give him neurontin 100 mg at night. He's already on Mobic, so avoid ibuprofen or motrin Pall med would be helpful as he's on quite a few other meds as well. [facility]09-24-2024 Telephone encounter Note* Telephone Encounter - Noemy Chicas RN - 11/29/2023 9:50 AM EDT Pt calls to report the following side effect concerns. Pt c/o new numbness/tingling to his hands and feet. Most noticeable at night. Pt has a h/o PVD, buthas never had neuropathy w/ it. Symptoms keeping him up at night. Took Tylenol PM last night beforebed but it did nothing. Explained to pt that peripheral neuropathy is a possible side effect of treatment. Bobby: What would you advise? 2. FYI: Pt c/o increased fatigue. Rates his fatigue 6-7/10. States he is able to remain active in and outside of the home. Admits he did spend a few days on the couch. Still able to complete his ADLsindependently. Informed pt that fatigue is an expected side effect of treatment. Encouraged pt to remain as active as tolerated, but allow time for frequent rest and naps if needed. Pt verbalizes understanding. 3. FYI: Pt reports his scalp is tender. Reports some hair loss. Informed pt that it is normal for the scalp to be tender as the hair is coming out. Advised he take ibuprofen if able or tylenol OTC. Reassured pt that this symptom would improve once the hair is done shedding. Pt verbalizes understanding. Noemy Chicas RN [facility]09-19-2024 History of Present illness Narrative* Prudence Chin RN - 11/24/2023 10:01 AM EDT Pt labs reviewed per Bobby. No needs/concerns at this time. Pt provided copy. Pt scheduled for massage tomorrow and wanted to verify no concerns, discussed with Bobby and pt is okay to have done. Prudence Chin RN documented in this encounter[facility] Telephone encounter Note * Telephone Encounter - Noemy Chicas RN - 11/22/2023 10:08 AM EDT Pt notified and verbalizes understanding. Noemy Chicas RN [facility] Work Phone: [phone] Miscellaneous Notes* Telephone Encounter - Noemy Chicas RN - 11/22/2023 10:08 AM EDT Pt notified and verbalizes understanding. Noemy Chicas RN * Telephone Encounter - Lo Hancock MD - 11/22/2023 9:58 AM EDT Agree with your initial assessment. * Telephone Encounter - Noemy Chicas RN - 11/21/2023 3:42 PM EDT Pt c/o acid reflux since starting treatment. Happens primarily at night when laying flat. Advised he sleep w/ his head elevated. Suggested he start Prilosec OTC q day as well. Any other suggestions? Pt also c/o generalized body aches. Rates his pain 8-9/10. Has Vicodin at home that he takes twice daily. Pt states he doesn't normally need to take a morning does of Vicodin, but the aches have beenbad since treatment. Reassured pt that his symptoms should begin to improved the farther out we getfrom treatment. Any other recommendations at this time? Noemy Chicas RN * Telephone Encounter - Noemy Chicas RN - 11/21/2023 3:08 PM EDT CYCLE 1/DAY 1 POST TREATMENT CALL Today's date: November 21, 2023 Treatment Regimen: Nivolumab, Paclitaxel, & Carboplatin C1D1 Date: 11/16/23 Called patient to follow-up on symptom management. Spoke with patient. SYMPTOM ASSESSMENT Neuro: Headache - Yes. Relieved w/ Vicodin, Dizziness - Occasionally when transitioning from sitting to standing or when walking., and Numbness/Weakness/Tingling - Yes. Pt reports tingling in his hands. CV/Resp: Episodes of palpitations/chest discomfort/pressure/pain - Reports pain on the left side of his chest. States that it is in the location of his known lung mass and Shortness of breath - w/ increased activity. GI/: Appetite: no changes in appetite, appetite good, Nausea - Yes. Relieved w/ antiemetics, Vomitinepisodes per night. Describes it as acid reflux. States it happens when he lays down at night. Recommended her sleep w/ his head elevated., Fluid intake: Reports that he is drinking lots of water, Heartburn: Yes: At night. Recommended he start Prilosec OTC once per day. , and Bladder/Urinary Changes: None Integument: Skin changes: Dry skin. Activity: Patient reported decreased energy level Do you need to take naps? Yes; Do you wake up feeling rested? No Rates his fatigue 8/10. Pain: Pt c/o generalized body aches. Rates his pain 8-9/10. Taking Vicodin BID. Fever: No Chills: No Any new referrals needed? No Reinforced CURRENT treatment education based on current and anticipated symptoms. Discussed port/line care and patient verbalizes understanding: Not Applicable Patient instructed to contact office or after hours Hematology/Oncology fellow for: temperature ? 100.4; questions or concerns. Patient verbalized understanding of when to seek medical attention and after hours number protocol. Noemy Chicas RN documented in this encounter[facility] Telephone encounter Note * Telephone Encounter - Lo Hancock MD - 11/22/2023 9:58 AM EDT Agree with your initial assessment. [facility]09-16-2024 Telephone encounter Note* Telephone Encounter - Noemy Chicas RN - 11/21/2023 3:42 PM EDT Pt c/o acid reflux since starting treatment. Happens primarily at night when laying flat. Advised he sleep w/ his head elevated. Suggested he start Prilosec OTC q day as well. Any other suggestions? Pt also c/o generalized body aches. Rates his pain 8-9/10. Has Vicodin at home that he takes twice daily. Pt states he doesn't normally need to take a morning does of Vicodin, but the aches have beenbad since treatment. Reassured pt that his symptoms should begin to improved the farther out we getfrom treatment. Any other recommendations at this time? Noemy Chicas RN [facility]09-16-2024 Telephone encounter Note* Telephone Encounter - Noemy Chicas RN - 11/21/2023 3:08 PM EDT CYCLE 1/DAY 1 POST TREATMENT CALL Today's date: November 21, 2023 Treatment Regimen: Nivolumab, Paclitaxel, & Carboplatin C1D1 Date: 11/16/23 Called patient to follow-up on symptom management. Spoke with patient. SYMPTOM ASSESSMENT Neuro: Headache - Yes. Relieved w/ Vicodin, Dizziness - Occasionally when transitioning from sitting to standing or when walking., and Numbness/Weakness/Tingling - Yes. Pt reports tingling in his hands. CV/Resp: Episodes of palpitations/chest discomfort/pressure/pain - Reports pain on the left side of his chest. States that it is in the location of his known lung mass and Shortness of breath - w/ increased activity. GI/: Appetite: no changes in appetite, appetite good, Nausea - Yes. Relieved w/ antiemetics, Vomitinepisodes per night. Describes it as acid reflux. States it happens when he lays down at night. Recommended her sleep w/ his head elevated., Fluid intake: Reports that he is drinking lots of water, Heartburn: Yes: At night. Recommended he start Prilosec OTC once per day. , and Bladder/Urinary Changes: None Integument: Skin changes: Dry skin. Activity: Patient reported decreased energy level Do you need to take naps? Yes; Do you wake up feeling rested? No Rates his fatigue 10/14. Pain: Pt c/o generalized body aches. Rates his pain 8-11/14. Taking Vicodin BID. Fever: No Chills: No Any new referrals needed? No Reinforced CURRENT treatment education based on current and anticipated symptoms. Discussed port/line care and patient verbalizes understanding: Not Applicable Patient instructed to contact office or after hours Hematology/Oncology fellow for: temperature ? 100.4; questions or concerns. Patient verbalized understanding of when to seek medical attention and after hours number protocol. Noemy Chicas, RN [facility]09-13-2024 Telephone encounter Note* Telephone Encounter - Dick Miranda MD - 11/18/2023 12:26 PM EDT [id number] Miscellaneous Notes* Telephone Encounter - Dick Miranda MD - 11/18/2023 12:26 PM EDT documented in this encounterSaint [facility] [id number] History of Present illness Narrative* Steffany Damian LSW - 11/16/2023 2:44 PM EDT .PSYCHOSOCIAL SCREENING ASSESSMENT Date of Service: November 16, 2023 Erin Pena is a 67 year old male being seen for initial social work assessment. Diagnosis: Lung Cancer New Primary Oncologist: Dr. Lo Hancock Radiation Oncologist: Unknown Goals of Care: Curative intent Today's visit includes: self/patient and spouse Family History of Cancer: Mother SUPPORT NETWORK: Social Connections: Unknown (04/19/2023) Received from [facility], [facility] Social Connection and Isolation Panel [NHANES] Frequency of Communication with Friends and Family: Three times a week Frequency of Social Gatherings with Friends and Family: Once a week Attends Episcopalian Services: More than 4 times per year Active Member of Clubs or Organizations: Patient declined Attends Club or Organization Meetings: Patient declined Marital Status: Marital status: 34 years Child/Children: Yes. How many? 2 sons health care recruiter arrangements needed: No Grandchild(melanie): none Home Health Provider: No Community Services: No Aimee Identified: Yes Episcopal/Spirituality: Nondenominational Is a member of [employer] in [place], [place]. Are these practices or beliefs that may affect or influence treatment? Yes EMPLOYMENT/FINANCIAL/HEALTH INSURANCE: Employment: Retired Income source: Social Security Insurance: Medicare only Prescription coverage: Yes Is the patient appropriate for referral to [facility] COBRA Assistance program? No Financial Distress: No [place]: No FOOD INSECURITY Within the past year, have you worried about how you would buy or obtain food? No LIVING ARRANGEMENTS: Type: House- independent colonial Resides with: Mandy Transportation Needs: No Transportation Needs (09/27/2023) [id number] - Transportation Lack of Transportation (Medical): No Lack of Transportation (Non-Medical): No FUNCTIONAL STATUS: Cognitive limitations: none Physical limitations: none Language barrier: No Hearing Impaired: No Speech Impaired: No Visual Impairments: No Special considerations/accommodations needed: No HEALTH LITERACY: Do you have difficulty understanding medical instructions or other written materials you receive from you doctor or pharmacy? Not asked Do have difficulty filling out medical forms by yourself? Not asked The following interventions were put into place: NA MEDICATION ADHERENCE: Within the past 2 weeks, have you had difficulty remembering to take your medicine? No Within the past 2 weeks, did you ever miss taking your medications for reasons other than forgetting? No The following interventions were put into place: NA MENTAL HEALTH HISTORY: No History of combat/trauma: No Intimate Partner Violence: Not At Risk (11/01/2023) Safe at Home? Fear of Current or Ex-Partner: Not on file Emotionally Abused: Not on file Physically Abused: Not on file Sexually Abused: Not on file Safe at Home?: Yes Substance Use and Treatment History: denied History of Abuse: No Issues with: Sleep:No Eating:No Exercising: N/A Stress Management: No ADVANCE DIRECTIVES/LEGAL DOCUMENTS: Living Will: Yes Scanned into EPIC: Yes, Mandy is the agent Health Care Durable Power of Buckle Strap Drum Operator: Yes Scanned into EPIC: Yes, Mandy is the agent Guardianship: NA Scanned into EPIC:NA Reasons Advanced Directives were not Addressed: NA Goals of Care Date of Discussion: 11/16/2023 Advance Directives are on file SIGNATURE: BLANCA Edwards PATIENT NAME: Erin Pena DATE: November 16, 2023 TIME: 2:45 PM PAGER/CONTACT #: COPING STATUS: Stress: Patient Declined (04/19/2023) Received from [employer] [employer] [facility] [employer] [facility] [employer] [facility] - Occupational Stress Questionnaire Feeling of Stress : Patient declined Coping Strengths: supportive relationships with immediate family, with friends, and with yazidism spirituality successful managing past crises hopefulness self advocate strong problem-solving skills ability to plan able to follow direction consistently over time able to communicate effectively Current affect/mood: appropriate Adjustment to diagnosis: reflecting understanding and responding appropriately BARRIERS/CARE CHALLENGES: NA Are barriers/care challenges identified likely to have an impact on the patient's quality of life during treatment? No INTERVENTIONS/REFERRALS TO BE PROVIDED: Monitor patient response to treatment Continue follow up as needed Resources and Referrals: Internal: NA External: N/A CLINICAL IMPRESSION: Patient is a 67 year old male with a diagnosis of lung cancer. Patient lives in [place], [place] with his Mandy. Patient is retired. SW explained the role of an Oncology SW. No immediate psychosocialneeds were identified. SW provided Patient's with a SW flyer listing the available SW servicesas well as contact information to reach this SW. SW will remain available and will follow up as appropriate. PSYCHOSOCIAL RISK CRITERIA If positive for one or more of the following risk criteria, follow up every 30 days Age: NA Mental Health: NA Practical Needs: N/A PLAN: Follow up PRN Follow up appointment with SW in: PRN Assigned SW listed in Care Team tab: Yes VITOR Edwards documented in this encounterSelect [facility] History of Present illness Narrative* Steffany Damian LSW - 11/16/2023 2:10 PM EDT Opened in error. documented in this encounterSelect Medical [facility] Telephone encounter Note * Telephone Encounter - Evelyn Chavez - 11/16/2023 10:44 AM EDT Patient is active with [employer] Medicare Advantage, LOC 60%, $1,000 deductible has $1,000 remaining, $5,500 OOP has $3,800.19 remaining. Estimate shows patient financial responsibility is $3,038.49 foreach treatment in 2023 until oop max is reached. Called the patient to discuss, left a voicemail toreturn call. Reference #[id number]. Also sent Cost Facit through [employer] [facility]09-11-2024 Miscellaneous Notes* Telephone Encounter - Evelyn Chavez - 11/16/2023 10:44 AM EDT Patient is active with [employer] Medicare Advantage, LOC 60%, $1,000 deductible has $1,000 remaining, $5,500 OOP has $3,800.19 remaining. Estimate shows patient financial responsibility is $3,038.49 foreach treatment in 2023 until oop max is reached. Called the patient to discuss, left a voicemail toreturn call. Reference #[id number]. Also sent Cost [employer]it through [employer] documented in this encounterSelect [facility] Instructions* Patient Instructions* Nieves Smith - 11/16/2023 9:28 AM EDT Proceed Cycle1 Day1 Carbo/Taxol + Nivo today q 3 weeks x3 David counts on D10, wait for results No clinician visit RTC with me in 3 weeks for C2 treatment Labs same day documented in this encounterSelect Medical [facility] History of Present illness Narrative* Lo Hancock MD - 11/16/2023 9:15 AM EDT Images from the original note were not included. NAME: Erin Pena [facility] NO.: [id number] DATE OF SERVICE: November 16, 2023 (Khadijah) Some elements in this clinic note that are critical to medical decision making have been carefully reviewed and included from a prior clinic note dated: October 21, 2023 (Khadijah) Referring Provider: Gerald Abdi MD Additional Clinicians involved in Erin Pena's care: DIAGNOSIS: Squamous cell lung ca Left upper lobe - cT3 cNx, cM0 - stage IIB vs. 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 Anticipate neoadjuvant chemo / IO. Still needs pathology review and molecular studies. PLAN: Proceed Cycle1 Day1 Carbo/Taxol + Nivo today q 3 weeks x3 David counts on D10, wait for results No clinician visit RTC with me in 3 weeks for C2 treatment Labs same day HPI: CASE HISTORY: Reverse Chronological Order 11/01/2023 - Bronchoscopy: with Dr. Craig Cytology: 5 lymph nodes: Negative for malignant cells. Benign lymphoid sample 10/21/2023 - PET/CT: Abnormal uptake confined to the left upper lobe mass without evidence for metastatic disease. 10/05/2023 - Lung, left lower lobe, core biopsy: at [facility] - Invasive squamous cell carcinoma Comment: In order to classify the neoplasm, immunohistochemical staining is performed on 1B and demonstrates that the tumor cells are diffusely positive for AE1/AE3 and p40, and negative for TTF-1 and Napsin A with adequate controls, supporting the above diagnosis 09/28/2023 - CT Chest: 5.2 cm left upper lobe mass with satellite nodule, concerning for malignancy. Focal necrotizing pneumonia felt less likely but could appear similarly in the appropriate clinical setting. 09/28/2023 - MRI Brain: No acute intracranial findings. 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 09/27/2023 - CTA Neck: Partially visualized lobulated left lower lobe pulmonary mass measuring up to 4.8 cm highly concerning for malignancy. Complete CT chest examination recommended for further evaluation. 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 Mild (less than 50%) luminal narrowing of the proximal left internal carotid artery. 09/27/2023-09/29/2023 - Admitted at [facility] with left sided weakness, slurred speech - stroke workup negative 09/25/2023 - ER for bilateral leg weakness Updated Visit, November 16, 2023: Sergio returns with Mandy to begin Carbo/Taxol + Nivo. He underwent a bronchoscopy on 10/31 - negative for rowena involvement. Plan for 3 cycles of treatment prior to resection. He is slightly anemic today, will check iron studies on Day 10 with david counts. Initial Visit, October 21, 2023: Erin Pena presents today for a Hematology and Oncology evaluation and second opinion.He is joined by his , Mandy. 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 He completed a PET/CT this morning which shows confined uptake in the left lung without metastatic disease. I recommended chemo+immuno treatment followed by surgery once staging studies are completed. He will also need PFTs to give predictive capacity following a potential resection. He is in agreement to start after staging is complete. Will refer him to Drs. Craig and Afia forsurgical evaluation. 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 Erin's [id number] is Arie Baker, who is my patient also. REVIEW OF SYSTEMS Per HPI and otherwise negative by full review of organ systems. ECOG PERFORMANCE STATUS: 1 PHYSICAL EXAMINATION: Vitals: BP 123/70 Pulse 67 Temp (Src) 97.9 (Temporal) Resp 16 Ht 5' 5.551 [verified by 2 caregivers[ (1.67m) Wt 179 lb 7.3 oz (81.4kg) SpO2 95% BMI 29.36 kg/(m^2). Body surface area is 1.94 meters squared. Exam limited to gross visualization where appropriate. Gen.: This is an age-appropriate patient in no acute distress. Head: Appears atraumatic with no visible lesions. Eyes: Pupils equally round and reactive to light, extraocular muscles are intact. Neck: Supple. Respiratory: Appears to be respiring comfortably. Neurologic: Nonfocal to gross visualization. Alert and oriented 3. Psychiatric: No evidence of inappropriate anxiety or depression. Skin: Visible areas of skin without rash, lesions, wounds or petechiae. ALLERGIES: ALLERGIES Allergen Reactions Sulfa (Sulfonamide * Unknown Unkown, was a child MEDICATIONS: ondansetron (ZOFRAN) 8 mg tablet Take 1 tablet by mouth every 8 hours as needed for nausea/vomiting. prochlorperazine (COMPAZINE) 10 mg tablet Take 1 tablet by mouth every 6 hours as needed. Cetirizine 10 mg cap Take 10 mg by mouth once daily. albuterol HFA (PROVENTIL HFA, VENTOLIN HFA) 90 mcg/actuation inhaler Inhale 2 Puffs as instructed every 6 hours as needed. HYDROcodone-Acetaminophen (NORCO) 7.5-325 mg per tablet Take 1 tablet by mouth every 6 hours as needed. propranolol (INDERAL) 20 mg tablet TAKE 1 TABLET BY MOUTH NEEDED FOR ANXIETY ATTACKS ONCE A DAY sildenafil (VIAGRA) 100 mg tablet Take 100 mg by mouth at bedtime as needed. terazosin (HYTRIN) 1 mg capsule Take 1 mg by mouth daily at bedtime. traZODone (DESYREL) 50 mg tablet Take 50 mg by mouth daily at bedtime. vitamin E, dl,tocopheryl acet, (VITAMIN E, DL, ACETATE,) 45 mg (100 unit) capsule Take 400 Units bymouth once daily. metFORMIN (GLUCOPHAGE) 850 mg tablet Take 850 mg by mouth daily with breakfast. meloxicam (MOBIC) 7.5 mg tablet Take 1 tablet by mouth once daily. losartan (COZAAR) 100 mg tablet Take 100 mg by mouth once daily. krill oil 500 mg cap Take 1 capsule by mouth once daily. hydroCHLOROthiazide 50 mg tablet Take 50 mg by mouth once daily. glucosamine HCl 750 mg tab Take 1 tablet by mouth once daily. cholecalciferol (VITAMIN D3) 1,000 unit tab tablet Take 1,000 Units by mouth once daily. atorvastatin (LIPITOR) 40 mg tablet Take 40 mg by mouth once daily. aspirin, enteric coated (ASPIRIN, ENTERIC COATED) 81 mg EC tablet Take 81 mg by mouth once daily. nicotine (NICODERM) 21 mg/24 hr Apply 1 Patch as directed. levothyroxine (SYNTHROID) 175 mcg tablet Take 175 mcg by mouth daily before breakfast. ascorbic acid (VITAMIN C) 500 mg tablet Take 500 mg by mouth once daily. multivitamin tablet Take 1 tablet by mouth once daily. LABORATORY VALUES: WBC (k/uL) Date Value 11/16/2023 11.01 (H) RBC (m/uL) Date Value 11/16/2023 4.06 (L) Hemoglobin (g/dL) Date Value 11/16/2023 12.0 (L) Hematocrit (%) Date Value 11/16/2023 35.2 (L) MCV (fL) Date Value 11/16/2023 86.7 MCH (pg) Date Value 11/16/2023 29.6 MCHC (g/dL) Date Value 11/16/2023 34.1 RDW-CV (%) Date Value 11/16/2023 13.5 Platelet Count (k/uL) Date Value 11/16/2023 364 MPV (fL) Date Value 11/16/2023 9.2 Glucose (mg/dL) Date Value 11/16/2023 180 (H) BUN (mg/dL) Date Value 11/16/2023 12 Creatinine (mg/dL) Date Value 11/16/2023 0.73 Sodium (mmol/L) Date Value 11/16/2023 139 Potassium (mmol/L) Date Value 11/16/2023 3.5 (L) Chloride (mmol/L) Date Value 11/16/2023 97 (L) CO2 (mmol/L) Date Value 11/16/2023 30 Protein, Total (g/dL) Date Value 11/16/2023 6.6 Albumin (g/dL) Date Value 11/16/2023 4.3 Calcium, Total (mg/dL) Date Value 11/16/2023 9.7 Alkaline Phosphatase (U/L) Date Value 11/16/2023 95 Bilirubin, Total (mg/dL) Date Value 11/16/2023 0.3 AST (U/L) Date Value 11/16/2023 17 ALT (U/L) Date Value 11/16/2023 19 DIAGNOSIS: (C34.12) Malignant neoplasm of upper lobe of left lung (HCC) (primary encounter diagnosis) Plan: COMPLETE BLOOD COUNT AND DIFFERENTIAL, COMPREHENSIVE METABOLIC PANEL, IRON AND TIBC, FERRITIN, VITAMIN B12, FOLATE, SERUM PAST MEDICAL HISTORY 10/20/2023: Chronic obstructive pulmonary disease (HCC) No date: Hypertension No date: Hypothyroidism 2023: Lung cancer (HCC) Comment: Flores Abdi 03/14/2012: Other affections of shoulder region, not elsewhere classified PAST SURGICAL HISTORY No date: APPENDECTOMY No date: BRAIN SURGERY HX No date: COLONSCOPY SCREENING HIGH RISK No date: FINGER AMPUTATION (SPECIFY DIGIT) HX No date: HAND SURGERY HX No date: HEMORROIDECTOMY INTERNAL No date: LUNG BIOPSY; Left No date: NECK SURGERY HX No date: PAST SURGICAL HISTORY OF Comment: Heart cath No date: REMV CATARACT EXTRACAP,INSERT LENS No date: S KIT CRAINIOTOMY [id number] No date: SHOULDER ARTHROSCOPY/SURG No date: TYMPANOSTOMY GENERAL ANESTHESIA No date: XR CERVICAL FUSION OR Comment: C4 fusion Social History Tobacco Use Smoking status: Former Current packs/day: 0.00 Average packs/day: 0.5 packs/day for 50.0 years (25.0 ttl pk-yrs) Types: Cigarettes Start date: 09/22/1973 Quit date: 09/23/2023 Years since quittin.1 Passive exposure: Current Smokeless tobacco: Never Tobacco comments: Quit September 26 Vaping Use Vaping status: Former Substance Use Topics Alcohol use: No Drug use: No FAMILY HISTORY Problem Relation Age of Onset Stroke Mother Cancer Mother Heart disease Father Hypertension Father Stroke Paternal Grandmother Anesthesia Problems No Family History I spent a total of 30 minutes on the date of the service which included preparing to see the patient, [id number] patient care, completing clinical documentation, obtaining and/or reviewing separately obtained history, performing a medically appropriate examination, counseling and educating the pat ient/family/caregiver, ordering medications, tests, or procedures, communicating with other HCPs (not separately reported), independently interpreting results (not separately reported), communicatingresults to the patient/family/caregiver, and care coordination (not separately reported). Lo Hancock MD, CPE [facility]ology [facility] On[facility] Provided at: [place], [place] Scribe Attestation: This note was scribed by Nieves Smith on November 16, 2023 under the direction and supervision of Dr. Lo Hancock. I attest that all of the information documented is correct to the best of my knowledge. Provider Attestation: I, Lo Hancock MD, attest that all information documented by the above scribe is correct, and was supervised by me and under my direction. CC: Gerald Abdi [address] [address] Basia Vega MD [address] [facility] [id number] documented in [facility] encounter[facility] [place] [facility] Telephone encounter Note * Telephone Encounter - Noemy Chicas RN - 11/15/2023 4:27 PM EDT Pt would like to meet w/ the wheel blocker. Order pended. Noemy Chicas RN [facility] [place] [facility]-10-2024 Miscellaneous Notes* Telephone Encounter - Noemy Chicas RN - 11/15/2023 4:27 PM EDT Pt would like to meet w/ the wheel blocker. Order pended. Noemy Chicas RN documented in this encounterSelect [facility] [place] [facility] History of Present illness Narrative* Noemy Chicas RN - 11/15/2023 4:22 PM EDT Data Integrity Analyst Pre Chemo Patient identified by name and date of . YES Confirmed date and time for chemotherapy ? YES Other appointments (labs, imaging) discussed? YES Discussed where to park (residential service technician), charge for parking NO Discussed where to report (building/floor) YES Any pre-medications ordered? NO Described the infusion room and what to expect. (What to wear, what to bring [iPad, books] amount of time treatment can take, meals and CC options for food) YES Note: NA Discussed whether the patient can eat prior to labs and treatment. YES Who is driving you to and from treatment? Spouse Discussed why it is important to bring someone with you. Yes, Resources discussed (music therapy, Art therapy, pet therapy, etc.) YES Education on chemotherapy (drug, side effects) discussed and that the patient will be receiving a C1D1 call within 7 days of treatment. YES Other topics discussed, interventions needed: NA Noemy Chicas RN * Noemy Chicas RN - 11/15/2023 4:14 PM EDT ONCOLOGY PATIENT EDUCATION NOTE TOPIC: Chemotherapy Immunotherapy, Medications: Nivolumab, Paclitaxel, & Carboplatin patient and spouse here today for education for treatment of Non-Small Cell Lung Cancer Anticipated/Scheduled start date: 11/16/23 READINESS TO LEARN: COGNITIVE ABILITY: Alert and oriented MOTIVATION TO LEARN: Interested FAMILY SUPPORT: High - Very involved in pt care INSTRUCTION PROVIDED TO: Patient and Spouse INSTRUCTION PROVIDED BY: Nurse Coordinator PATIENT LEARNS BEST BY: Multiple Methods FACTORS AFFECTING LEARNING: None PHYSICAL LIMITATIONS AFFECTING LEARNING: None LEARNING RESPONSE METHOD OF INSTRUCTION: Individual instruction Written instruction/Handouts Verbal instruction PATIENT/FAMILY RESPONSE: Verbalizes understanding of: CHEMOTHERAPY-Regimen, toxicity and side effects INFECTION MANAGEMENT-Signs and symptoms of an infection and importance of contacting the physician POST-PROCEDURE INSTRUCTIONS-Correct actions to take to reduce post procedure complications SYMPTOM MANAGEMENT-Correct actions to take to manage symptoms associated with his/her disease/illness WORSENING CONDITION-Signs and symptoms of a worsening condition that warrant a call to the physician Information received as demonstrated by interest and questions FOLLOW UP PLAN: Patient instructed to call with any further issues Contact information given. SUPPLEMENTAL MATERIAL: Written material was provided at this visit with the following information: - Chemotherapy Immunotherapy education was provided by a pharmacist NO - Side effect management information was provided/discussed including but not limited to: abdominaldiscomfort, anemia, appetite changes, arthralgia, bowel habit changes, cardiac toxicity, diet, electrolyte disturbances, fatigue, hair loss, headache, hearing impairment, hypersensitivity reaction, infection, kidney toxicity, mouth hygiene, mucositis, myalgia, nausea/vomitting, neutropenia, peripheral neuropathy, rash, shortness of breath, skin changes, taste changes, thrombocytopenia, vision disorder/distrubance YES - Provided important phone numbers and contacts during and after hours. YES - Provided information on symptoms that require immediate assistance. YES - Provided Chemotherapy Immunotherapy when to call handouts YES - Preventing infection. YES - Treatment schedule and confirmation of appointment times. YES - Available support groups. YES - The importance of contraception during the course of chemotherapy YES - Prescriptions for anti-emetics or treatment prep was given: Compazine and Zofran. YES - A tour was given of the infusion suite with directions for the first day. YES - Neutropenic fever protocol discussed with patient, which included the importance of reporting anyfever of 100.4F (38.0C) or greater to the healthcare team as noted on the provided wallet card and/or magnet. YES - 4th Alex Information. YES - Patient services information. YES - ONS Immunotherapy wallet card provided w/ My Journey binder. Time Spent: 60 minutes REFERRAL (RECOMMENDATION): Nutrition Noemy Chicas RN documented in this encounterSelect [facility] [place] [facility] Telephone encounter Note * Telephone Encounter - Leona Bernard MA - 11/15/2023 3:41 PM EDT Patient coming in Tuesday11/16/23 for follow up treatment. Please add lab orders. Thanks. Leona Bernard MA [facility] [place] [facility]-09-2024 Telephone encounter Note* Telephone Encounter - Noemy Chicas RN - 11/14/2023 4:00 PM EDT Pt will be in tomorrow for education. Scripts for antiemetics pended. Noemy Chicas RN [facility] [place] [facility] Work Phone: [phone] Miscellaneous Notes* Telephone Encounter - Noemy Chicas RN - 11/14/2023 4:00 PM EDT Pt will be in tomorrow for education. Scripts for antiemetics pended. Noemy Chicas RN documented in this encounterSelect [facility] [place] [facility] Telephone encounter Note * Telephone Encounter - Evagnelina Linton - 11/14/2023 3:16 PM EDT Patient notified and in agreement. Scheduled education for tomorrow and RV and treatment w/ BOBBY on Tuesday - moved his appt that day to an earlier time to allow for treatment. Thanks! Evangelina Linton [facility] [place] [facility]-09-2024 Miscellaneous Notes* Telephone Encounter - Evangelina Linton - 11/14/2023 3:16 PM EDT Patient notified and in agreement. Scheduled education for tomorrow and RV and treatment w/ BOBBY on Tuesday - moved his appt that day to an earlier time to allow for treatment. Thanks! Evangelina Linton * Telephone Encounter - Evangelina Linton - 11/11/2023 3:58 PM EDT Appointment out to [facility] for coordination. Evangelina Linton * Telephone Encounter - Noemy Chicas RN - 11/11/2023 1:46 PM EDT Clerical: Please see 's instructions below. Thanks! Noemy Chicas RN * Telephone Encounter - Noemy Chicas RN - 11/11/2023 1:46 PM EDT Images from the original note were not included. Lo Hancock MD Wudel, Ashley; Hugh Craig MD Cc: [facility] Clerical Pool; [facility] Pharmacy Pool; Noemy Chicas RN Thanks Dex and Juan! [facility] Team when he comes back to us, can we get him started on treatment? May have to push his 11/15 appointment out a little further to accommodate education and treatment time. Orders have already been placed for Taxol / Carbo / Nivo. Frank Magaña documented in this encounterSelect Medical [place] [facility] Telephone encounter Note * Telephone Encounter - Evangelina Linton - 11/11/2023 3:58 PM EDT Appointment out to [facility] for coordination. Evangelina Linton [facility] [place] [facility]-06-2024 Telephone encounter Note* Telephone Encounter - Noemy Chicas RN - 11/11/2023 1:46 PM EDT Clerical: Please see 's instructions below. Thanks! Noemy Chicas RN [facility] [place] [facility] Work Phone: [phone] Telephone encounter Note* Telephone Encounter - Noemy Chicas RN - 11/11/2023 1:46 PM EDT Images from the original note were not included. Lo Hancock MD Wudel, Ashley; Hugh Craig MD Cc: [facility] Clerical Pool; [facility] Pharmacy Pool; Noemy Chicas, RN Thanks Dex and Juan! [facility] Team when he comes back to us, can we get him started on treatment? May have to push his 11/15 appointment out a little further to accommodate education and treatment time. Orders have already been placed for Taxol / Carbo / Nivo. Archana, V. [facility] [place] [facility]09-05-2024 Instructions* Patient Instructions* Savanah Oreilly MD - 11/10/2023 5:08 PM EDT I will see you at the completion of your laura-adjuvant therapy to review your post treatment scans and plan for definitive surgical resection of your left upper lobe lung cancer. documented in this encounterSelect Medical [place] [facility] History of Present illness Narrative* Savanah Oreilly MD - 11/09/2023 1:00 PM EDT REASON FOR EVALUATION: Left upper lobe squamous cell cancer. 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 On 09/25/2023 the patient presented to an outside ED for bilateral leg weakness. From 09/27/2023-09/29/2023 he was admitted at [facility] with left sided weakness, slurred speech. CVA workup negative. During thatadmission on 09/27/2023 the patient had a CTA Neck that showed: Partially visualized lobulated leftlower lobe pulmonary mass measuring up to 4.8 cm highly concerning for malignancy. On 09/28/2023 the patient had a MRI Brain that showed: No acute intracranial findings. 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 On 09/28/[address] a [address] Chest that showed: a 5.2 cm left upper lobe mass with satellite nodule, concerning for malignancy. The patient improved clinically and was discharged to home. On 10/05/2023 the patient had a Lung, left lower lobe, core biopsy: at [facility] that showed Invasive squamous cell carcinoma. On 10/21/2023 - PET/CT that showed: Abnormal uptake confined to the left upper lobe mass without evidence for metastatic disease. The patient had bronchoscopy with EBUS staging of his mediastinum on 11/01/23. Nodes at stations 4R, 7, 4L, 10L and 11L did not have metastatic disease. The patient has seen medical oncology and is planning on laura-adjuvant therapy followed by definitive surgical resection. The patient has been referred to discuss definitive surgical resection after completing laura-adjuvant therapy. Clinically, no complaints. ALLERGIES: No known drug allergies MEDICATIONS: Current Outpatient Medications on File Prior to Visit Medication Sig albuterol HFA (PROVENTIL HFA, VENTOLIN HFA) 90 mcg/actuation inhaler Inhale 2 Puffs as instructed every 6 hours as needed. HYDROcodone-Acetaminophen (NORCO) 7.5-325 mg per tablet Take 1 tablet by mouth every 6 hours as needed. propranolol (INDERAL) 20 mg tablet TAKE 1 TABLET BY MOUTH NEEDED FOR ANXIETY ATTACKS ONCE A DAY sildenafil (VIAGRA) 100 mg tablet Take 100 mg by mouth at bedtime as needed. terazosin (HYTRIN) 1 mg capsule Take 1 mg by mouth. traZODone (DESYREL) 50 mg tablet Take 50 mg by mouth. vitamin E, dl,tocopheryl acet, (VITAMIN E, DL, ACETATE,) 45 mg (100 unit) capsule Take 400 Units bymouth. metFORMIN (GLUCOPHAGE) 850 mg tablet Take 850 mg by mouth. meloxicam (MOBIC) 7.5 mg tablet Take 1 tablet by mouth once daily. losartan (COZAAR) 100 mg tablet Take 100 mg by mouth. krill oil 500 mg cap Take by mouth as directed. hydroCHLOROthiazide 50 mg tablet Take 50 mg by mouth. glucosamine HCl 750 mg tab Take by mouth. cholecalciferol (VITAMIN D3) 1,000 unit tab tablet Take 1,000 Units by mouth. atorvastatin (LIPITOR) 40 mg tablet Take 40 mg by mouth. aspirin, enteric coated (ASPIRIN, ENTERIC COATED) 81 mg EC tablet Take 81 mg by mouth. nicotine (NICODERM) 21 mg/24 hr Apply 1 Patch as directed. diazePAM (VALIUM) 5 mg tablet Take 5 mg by mouth. clopidogrel (PLAVIX) 75 mg tablet Take 75 mg by mouth. (Patient not taking: Reported on 10/26/2023) indomethacin ER 75 mg CR capsule Take 1 capsule by mouth daily with breakfast. CYANOCOBALAMIN, VITAMIN B-12, (VITAMIN B-12 ORAL) Take by mouth. rosuvastatin (CRESTOR) 40 mg tablet Take 40 mg by mouth once daily. levothyroxine (SYNTHROID) 175 mcg tablet Take 175 mcg by mouth daily before breakfast. ascorbic acid (VITAMIN C) 500 mg tablet Take 500 mg by mouth once daily. multivitamin tablet Take 1 tablet by mouth once daily. No current facility-administered medications on file prior to visit. PAST MEDICAL HISTORY: HISTORIES PAST MEDICAL HISTORY 10/20/2023: Chronic obstructive pulmonary disease (HCC) No date: Hypertension No date: Hypothyroidism 2023: Lung cancer (HCC) Comment: Flores Abdi 03/14/2012: Other affections of shoulder region, not elsewhere classified PAST SURGICAL HISTORY No date: APPENDECTOMY No date: BRAIN SURGERY HX No date: COLONSCOPY SCREENING HIGH RISK No date: FINGER AMPUTATION (SPECIFY DIGIT) HX No date: HAND SURGERY HX No date: HEMORROIDECTOMY INTERNAL No date: LUNG BIOPSY; Left No date: NECK SURGERY HX No date: PAST SURGICAL HISTORY OF Comment: Heart cath No date: REMV CATARACT EXTRACAP,INSERT LENS No date: S KIT CRAINIOTOMY [id number] No date: SHOULDER ARTHROSCOPY/SURG No date: TYMPANOSTOMY GENERAL ANESTHESIA No date: XR CERVICAL FUSION OR Comment: C4 fusion Social History Tobacco Use Smoking status: Former Current packs/day: 0.00 Average packs/day: 0.5 packs/day for 50.0 years (25.0 ttl pk-yrs) Types: Cigarettes Start date: 09/22/1973 Quit date: 09/23/2023 Years since quittin.1 Passive exposure: Current Smokeless tobacco: Never Tobacco comments: Quit September 26 Vaping Use Vaping status: Former Substance Use Topics Alcohol use: No Drug use: No FAMILY HISTORY Problem Relation Age of Onset Stroke Mother Cancer Mother Heart disease Father Hypertension Father Stroke Paternal Grandmother Anesthesia Problems No Family History REVIEW OF SYSTEMS: A 14-point review of systems was performed. All pertinent positives are listed in the HPI. All other systems reviewed are negative. EXAM: Physical Exam Vitals reviewed. Constitutional: General: He is not in acute distress. Appearance: Normal appearance. HENT: Head: Normocephalic and atraumatic. Nose: Nose normal. No congestion or rhinorrhea. Mouth/Throat: Mouth: Mucous membranes are moist. Pharynx: Oropharynx is clear. Eyes: General: No scleral icterus. Extraocular Movements: Extraocular movements intact. Conjunctiva/sclera: Conjunctivae normal. Pupils: Pupils are equal, round, and reactive to light. Neck: Vascular: No carotid bruit. Cardiovascular: Rate and Rhythm: Normal rate and regular rhythm. Pulses: Normal pulses. Heart sounds: Normal heart sounds. Pulmonary: Effort: Pulmonary effort is normal. No respiratory distress. Breath sounds: Normal breath sounds. No stridor. No wheezing, rhonchi or rales. Chest: Chest wall: Normal Abdominal: General: Abdomen is flat. Bowel sounds are normal. There is no distension. Palpations: Abdomen is soft. There is no mass. Tenderness: There is no abdominal tenderness. There is no right CVA tenderness, guarding or rebound. Hernia: No hernia is present. Musculoskeletal: General: No swelling, tenderness, deformity or signs of injury. Normal range of motion. Cervical back: Normal range of motion and neck supple. No rigidity or tenderness. Right lower leg: No edema. Left lower leg: No edema. Lymphadenopathy: Cervical: No cervical adenopathy. Skin: General: Skin is warm and dry. Coloration: Skin is not jaundiced or pale. Findings: No bruising, erythema, lesion or rash. Neurological: General: No focal deficit present. Mental Status: He is alert. Mental status is at baseline. Cranial Nerves: No cranial nerve deficit. Sensory: No sensory deficit. Motor: No weakness. Coordination: Coordination normal. Gait: Gait normal. Deep Tendon Reflexes: Reflexes normal. Psychiatric: Behavior: Behavior normal. Thought Content: Thought content normal. Judgment: Judgment normal. DIAGNOSTICS: I have personally reviewed the patient's available diagnostic studies, including: BRONCHOSCOPY/FNA 11/01/23: FINAL DIAGNOSIS A - Lymph Node, Transbronchial, Aspirate/Fine Needle Aspirate - 4R Negative for malignant cells. Benign lymphoid sample. B - Lymph Node, Transbronchial, Aspirate/Fine Needle Aspirate - Station 7 Negative for malignant cells. Benign lymphoid sample. C - Lymph Node, Transbronchial, Aspirate/Fine Needle Aspirate - 4L Negative for malignant cells. Benign lymphoid sample. D - Lymph Node, Transbronchial, Aspirate/Fine Needle Aspirate - 10L Negative for malignant cells. Benign lymphoid sample. E - Lymph Node, Transbronchial, Aspirate/Fine Needle Aspirate - 11L Negative for malignant cells. Benign lymphoid sample. PET 10/21/23: IMPRESSION: 1. Abnormal uptake confined to the left upper lobe mass without evidence for metastatic disease. LUNG BIOPSY 10/05/23: Amended Final Pathologic Diagnosis Lung, left lower lobe, core biopsy: INVASIVE SQUAMOUS CELL CARCINOMA. CT CHEST 09/28/23: IMPRESSION: 5.2 cm Left upper lobe mass with satellite nodule, concerning for malignancy. Focal necrotizing pneumonia felt less likely but could appear similarly in the appropriate clinical setting. MRI BRAIN 09/28/23: IMPRESSION: 1. No acute intracranial findings. 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 ECHO 09/28/23: Left Ventricle: Left ventricle appears normal in size. Systolic function is normal with an ejectionfraction of 55-60%. There is no diastolic dysfunction and normal left atrial pressure. Lateral E' is 9.79 cm/s. Medial E' is 8.49 cm/s. Average E' is 10.0 cm/s. Right Ventricle Right ventricular size appears normal. The right ventricular basal diameter is 30.0 mm. Systolic function is normal. Left Atrium Left atrium volume index is normal. The left atrial volume index is 27.6 mL/m2. There is no obviousinteratrial septum shunt. . Right Atrium Right atrium is normal in size. The right atrial area is 14.4 cm2. IVC/SVC The right atrial pressure is estimated at 8 mmHg. IVC appears dilated with increased right atrial pressure. There is normal collapse with deep inspiration. Mitral Valve The leaflets are mildly thickened and exhibit normal excursion. There is trace regurgitation. Thereis no evidence of mitral valve stenosis. Tricuspid Valve Tricuspid valve appears to be normal. There is mild regurgitation. RVSP calculated at 34 mmHg. RVSPis based on RA pressure of 8 mmHg. Aortic Valve The aortic valve is trileaflet. There is no regurgitation or stenosis. Pulmonic Valve The pulmonic valve was not well visualized. There is no regurgitation. Ascending Aorta The aortic root is normal in size. Pericardium There is no pericardial effusion. CT ANGIOGRAM CAROTID 09/27/23: IMPRESSION: * Partially visualized lobulated left lower lobe pulmonary mass measuring up to 4.8 cm highly concerning for malignancy. Complete CT chest examination recommended for further evaluation. 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 * Mild (less than 50%) luminal narrowing of the proximal left internal carotid artery. CTA HEAD 09/27/23: Impression: Occlusion of the right internal carotid artery. There is collateral opacification at the right ICA terminus intracranially likely via patent anterior and posterior communicating arteries. Otherwise no acute findings on CTA head. CAROTID DUPLEX 06/14/23: Previous: Previous carotid duplex exam performed 05/17/2022; Right: ICA and CCA occlusion: Left: <50% ICA stenosis. Right: Isoechoic intraluminal CCA and ICA content without spectral or color-flow Doppler. Antegradevertebral artery flow. Left: Plaque with no significant ICA spectral Doppler or color flow disturbances; ICA 121/44 cm/sec. Antegrade vertebral artery flow. Conclusions: RIGHT: Duplex data consistent with occlusion of the common carotid and internal carotid artery. Antegrade vertebral artery flow. LEFT: Plaque without significant stenosis (<50%) of the internal carotid artery. Antegrade vertebral artery flow. When compared to previous report no significant changes were noted. 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 On 09/25/2023 the patient presented to an outside ED for bilateral leg weakness. From 09/27/2023-09/29/2023 he was admitted at [facility] with left sided weakness, slurred speech. CVA workup negative. During that admission on 09/27/2023 the patient had a CTA Neck that showed: Partially visualized lobulated left lower lobe pulmonary mass measuring up to 4.8 cm highly concerning for malignancy. On 09/28/2023 the patient had a MRI Brain that showed: No acute intracranial findings. 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 On 09/28/[address] Chest that showed: a 5.2 cm left upper lobe mass with satellite nodule, concerning for malignancy. The patient improvedclinically and was discharged to home. On 10/05/2023 the patient had a Lung, left lower lobe, core biopsy: at [facility] that showed Invasive squamous cell carcinoma. On 10/21/2023 - PET/CT that showed: Abnormal uptake confined to the left upper lobe mass without evidence for metastatic disease. Thepatient had bronchoscopy with EBUS staging of his mediastinum on 11/01/23. Nodes at stations 4R, 7, 4L, 10L and 11L did not have metastatic disease. The patient has seen medical oncology and is planning on laura-adjuvant therapy followed by definitive surgical resection. The patient has been referred to discuss definitive surgical resection after completing laura-adjuvant therapy. Clinically, no complaints. I spent more than 45 minutes with this patient counseling the patient on his left upper lobe squamous cell cancer. I personally reviewed all available diagnostic studies and documentation. I discussed management of this patient's left upper lobe squamous cell cancer. I discussed the rationale for laura-adjuvant therapy followed by definitive surgical resection. I did discuss the risks, options, benefits and alternatives in detail with the patient. The patient understands the risks and complications. All of the patient's questions were answered today. The patient is in agreement and wo uld like to begin his pre-operative therapy. My office will refer the patient back to Dr. Hancock to begin therapy. I will plan on seeing the patient in follow up to review his post treatment scans and schedule him for definitive surgical resection. Once again, thank you for your kind referral of Erin Pena to me. If you have any questions or if I can be of help to you with any of your other patients, please do not hesitate to contact me. 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 Resident: Yimi Rodriguez DO Performed by: resident Indications and Patient Condition Indications for airway management: anesthesia Preoxygenated: yes anesthesia circuit Patient position: sniffing Method: asleep Final Airway Details Final airway type: supraglottic airway Number of attempts at approach: 1 Final Supraglottic Airway: i-gel Size 5 Seal Adequate: yes Airway not difficult SIGNATURE: Yimi Rodriguez DO PATIENT NAME: Erin Pena DATE: November 01, 2023 TIME: 12:21 PM CSN: [id number] History of Present illness Narrative* Yakov Shaikh, Research Coordinator - 11/01/2023 12:13 PM EDT Study title: DNA Evaluation of Fragments for Early Interception - Lung Cancer Training Study ([id number] Study) [facility] IRB #: [id number] PI: Roe Avila M.D., Erin Pena is interested in above study and appears to meet all Inclusion/Exclusion criteria at this time. Patient was informed of this study via [id number] discussion. The Informed Consent document was thoroughly reviewed, and all risks/benefits/alternatives have been presented. All questions were answered to patient's satisfaction. Risks/benefits/alternatives were presented and it is ouropinion that the patient understands all of these. The patient verbalized understanding of the study and its procedures. Patient signed the Informed Consent Version 7.0 dated 01MAR2023 on November 01, 2023 at 1110. Patient signed the Informed Consent IN PERSON: A copy of the signed consent document was given to the patient. Blood was DRAWN at consent visit with kit number [id number] on 11/01/2023 at 1115 by Bronch Nurse Was a discard tube used prior to sample collection? No Was any other blood drawn prior to sample collection? No The order of the tube collection is 1D, 2D, 3D, 4D. Was a 21g butterfly needle used for collection? No Time elapsed in hours, since last food or drink. Unknown There were no adverse events associated with the blood draw. Sample was stored and shipped per the protocol and lab manual. Yakov Shaikh Research Coordinator [facility] [employer] documented in this encounterSelect Medical Cleveland Clinic [facility]08-27-2024 Telephone encounter Note * Telephone Encounter - Tommie Mcfadden RN - 11/01/2023 11:53 AM EDT Spoke with patient's spouse, Anika, expressing concern with misread and documented CT from [facility] that report nodule in [place]. Confirmed our report shows LLL. Anika expressed gratitude for verifying our office received the revised report. Denied further questions or concerns at this time. Tommie Mcfadden RN [facility]08-27-2024 Miscellaneous Notes* Telephone Encounter - Tommie Mcfadden RN - 11/01/2023 11:53 AM EDT Spoke with patient's spouse, Anika, expressing concern with misread and documented CT from [facility] that report nodule in [place]. Confirmed our report shows LLL. Anika expressed gratitude for verifying our office received the revised report. Denied further questions or concerns at this time. Tommie Mcfadden RN * Telephone Encounter - Chaya Gama - 11/01/2023 11:42 AM EDT Patient's , Mandy called and would like a call back regarding a few questions about her 's procedure today with Dr. Craig documented in this encounterSelect Medical [facility]08-27-2024 Telephone encounter Note * Telephone Encounter - Chaya Gama - 11/01/2023 11:42 AM EDT Patient's , Mandy called and would like a call back regarding a few questions about her 's procedure today with Dr. Craig [facility]08-27-2024 [facility] Patient Name: Erin Pena Procedure Date: 11/01/2023 11:19 AM Date of : 1955 Admit Type: Outpatient Age: 67 Room: [facility] 2 Gender: Male Attending MD: Hugh Craig MD, [id number] Procedure: Bronchoscopy Indications: Mediastinal staging of confirmed lung cancer., Known lung cancer of the left lower lobe Providers: Hugh Craig MD (Doctor), Clifton Seymour RN (Assisting Nurse), Josefina Sharma RN , Nena Huang RN (Assisting Nurse) Referring MD: Requesting Physician: Lo Hancock Patient Profile: Refer to note in patient chart for documentation of history and physical. Imaging Source: CT of chest. Clinical Radiographic Stage: T3, N1, M0. Medicines: General Anesthesia, See the Anesthesia note for documentation of the administered medications Complications: No immediate complications Procedure: Pre-Anesthesia Assessment: - A History and Physical has been performed. Patient meds and allergies have been reviewed. The risks and benefits of the procedure and the sedation options and risks were discussed with the patient. All questions were answered and informed consent was obtained. Patient identification and proposed procedure were verified prior to the procedure by the physician, the nurse, the anesthesiologist and the software applications designer in the procedure room. Mental Status Examination: normal. Respiratory Examination: clear to auscultation. CV Examination: regular rate and rhythm. ASA Grade Assessment: III - A patient with severe systemic disease. After reviewing the risks and benefits, the patient was deemed in satisfactory condition to undergo the procedure. The anesthesia plan was to use general anesthesia. Immediately prior to administration of medications, the patient was re-assessed for adequacy to receive sedatives. The heart rate, respiratory rate, oxygen saturations, blood pressure, adequacy of pulmonary ventilation, and response to care were monitored throughout the procedure. The physical status of the patient was re-assessed after the procedure. After obtaining informed consent, the Bronchoscope was introduced through the mouth, via laryngeal mask airway and advanced to the tracheobronchial tree. the Bronchoscope was introduced through the mouth, via laryngeal mask airway and advanced to the tracheobronchial tree. The procedure was accomplished without difficulty. The patient tolerated the procedure well. Findings: The laryngeal mask airway is in good position. The vocal cords appear normal. The subglottic space is normal. The trachea is of normal caliber. The keyon is sharp. The tracheobronchial tree was examined to at least the first subsegmental level. Bronchial mucosa and anatomy are normal; there are no endobronchial lesions, and no secretions. Once the airway inspection was completed, the standard bronchoscope was withdrawn and the convex probe endobronchial ultrasound (EBUS) bronchoscope was inserted through the same route. A systematic staging of the hilum and mediastinum was performed. Lymph Nodes: The following lymph nodes were evaluated and/or sampled. Lymph node sizing was performed via endobronchial ultrasound for known non-small cell lung cancer. Sampling by transbronchial needle aspiration was also performed using an Olympus ViziShot 22 gauge needle and sent for routine cytology. - The 11Rs (superior interlobar) node was 4 mm by EBUS, [address] and PET scan was not done. Sampling was not done due to size criteria (less than 5 mm). - The 4R (lower paratracheal) node was 5 mm by EBUS, [address] and PET scan was not done. Three samples with the needle were obtained. - The 2R (upper paratracheal) node was 3 mm by EBUS, [address] and PET scan was not done. Sampling was not done due to size criteria (less than 5 mm). - The 7 (subcarinal) node was 10 mm by EBUS, [address] and PET scan was not done. Three samples with the needle were obtained. - The 2L (upper paratracheal) node was not visualized by EBUS, not visualized by CT and PET scan was not done. Sampling was not done due to size criteria (less than 5 mm). - The 4L (lower paratracheal) node was 5 mm by EBUS, [address] and PET scan was not done. Four samples with the needle were obtained. - The 10L (hilar) node was 9 mm by EBUS, [address] and PET scan was not done. Four samples with the needle were obtained. - The 11L (interlobar) node was 10 mm by EBUS and [address] Four samples with the needle were obtained. Lymph Nodes: Rapid On-Site Evaluation (KRISTOPHER): Preliminary cytology was suggestive of benign-appearing lymphoid tissue (final results are pending) in the right lower paratracheal region (level 4R), left lower paratracheal region (level 4L), subcarinal mediastinum (level 7), left hilar region (level 10L) and left interlobar region (level 11L). Sanjay (more content not included)...[facility] [id number] History of Present illness Narrative* Nancy Elizondo, WOOL SHEARER.SACK CLEANING HAND - 10/28/2023 11:38 AM EDT Pre-Bronchoscopy H&P CONSULTATION Consultation requested by Dr. Craig for an opinion regarding bronchoscopy evaluation. My final recommendations will be communicated back to the requesting physician by way of shared medical record or letter via US mail PCP: Dick Miranda MD No ref. provider found CHIEF COMPLAINT: lung mass HPI: Erin Pena is a 67 year old who presents today for pre-bronchoscopy evaluation scheduled 11/01/23 with Hugh Craig. Patient reports suffering from a recent TIA. During work up in [facility], a lung mass was found. TTNA was done which was positive for squamous cell carcinoma. Patient now wishes to transfer his care to [facility] for lung cancer treatment. Has SOB with moderate to strenuous activities. Cough has decreased since he quit smoking. Denies wheezing, hemoptysis, recent fevers/chills, night sweats, and any significant unintentional weight loss. Patient denies having any recent respiratory infections. Has occasional left sided chest pain with activity and relieved with rest. Stress test completed 20+yrs ago per patient. Pulmonary risk factors: - Advanced obstructive/restrictive lung disease: yes, list types of disease(s) COPD (severity unknown)- prn albuterol - Recent pulmonary exacerbation (whether hospitalized or not) in the past 30 days: no - Moderate or greater pulmonary hypertension: no - History of severe obstructive sleep apnea: no - History of difficult intubation: no - Patients with prior history of lung resection: no - Patients with prior history of spontaneous pneumothorax: no Cardiac Co-morbidities: Yes HTN: controlled on Losartan and HCTZ [facility] Anticoagulants: Yes ASA 81m10/21/23 Plavix: LD 10/21/23 Neurological Risk Factors: Yes TIA 09/27/23: does not have a neurologist, was supposed to follow up but didnt Craniotomy 2014 d/t CSF leak Chronic pain: on [place] Anxiety: Intubation Risk Factors: Yes Neck Surgery x2: has limited neck rotation Diabetes: No. ECOG PERFORMANCE STATUS: 1- Restricted in physically strenuous activity. Carries out light duty. Past Medical History PAST MEDICAL HISTORY 10/20/2023: Chronic obstructive pulmonary disease (HCC) No date: Hypertension No date: Hypothyroidism 2023: Lung cancer (HCC) Comment: refBy Trin[place] 03/14/2012: Other affections of shoulder region, not elsewhere classified Immunization History Administered Date(s) Administered COVID-19 original vaccine, age 12+ yr, monovalent ([employer] - PURPLE TOP) 02/18/2021 COVID-19 original vaccine, full dose, monovalent (MODERNA) 05/02/2020 06/02/2020 Past Surgical History PAST SURGICAL HISTORY No date: APPENDECTOMY No date: BRAIN SURGERY HX No date: COLONSCOPY SCREENING HIGH RISK No date: FINGER AMPUTATION (SPECIFY DIGIT) HX No date: HAND SURGERY HX No date: HEMORROIDECTOMY INTERNAL No date: LUNG BIOPSY; Left No date: NECK SURGERY HX No date: PAST SURGICAL HISTORY OF Comment: Heart cath No date: REMV CATARACT EXTRACAP,INSERT LENS No date: S KIT CRAINIOTOMY [id number] No date: SHOULDER ARTHROSCOPY/SURG No date: TYMPANOSTOMY GENERAL ANESTHESIA No date: XR CERVICAL FUSION OR Comment: C4 fusion Medications albuterol HFA (PROVENTIL HFA, VENTOLIN HFA) 90 mcg/actuation inhaler Inhale 2 Puffs as instructed every 6 hours as needed. HYDROcodone-Acetaminophen (NORCO) 7.5-325 mg per tablet Take 1 tablet by mouth every 6 hours as needed. propranolol (INDERAL) 20 mg tablet TAKE 1 TABLET BY MOUTH NEEDED FOR ANXIETY ATTACKS ONCE A DAY sildenafil (VIAGRA) 100 mg tablet Take 100 mg by mouth at bedtime as needed. terazosin (HYTRIN) 1 mg capsule Take 1 mg by mouth. traZODone (DESYREL) 50 mg tablet Take 50 mg by mouth. vitamin E, dl,tocopheryl acet, (VITAMIN E, DL, ACETATE,) 45 mg (100 unit) capsule Take 400 Units bymouth. metFORMIN (GLUCOPHAGE) 850 mg tablet Take 850 mg by mouth. meloxicam (MOBIC) 7.5 mg tablet Take 1 tablet by mouth once daily. losartan (COZAAR) 100 mg tablet Take 100 mg by mouth. krill oil 500 mg cap Take by mouth as directed. hydroCHLOROthiazide 50 mg tablet Take 50 mg by mouth. glucosamine HCl 750 mg tab Take by mouth. cholecalciferol (VITAMIN D3) 1,000 unit tab tablet Take 1,000 Units by mouth. atorvastatin (LIPITOR) 40 mg tablet Take 40 mg by mouth. aspirin, enteric coated (ASPIRIN, ENTERIC COATED) 81 mg EC tablet Take 81 mg by mouth. nicotine (NICODERM) 21 mg/24 hr Apply 1 Patch as directed. diazePAM (VALIUM) 5 mg tablet Take 5 mg by mouth. clopidogrel (PLAVIX) 75 mg tablet Take 75 mg by mouth. (Patient not taking: Reported on 10/26/2023) indomethacin ER 75 mg CR capsule Take 1 capsule by mouth daily with breakfast. CYANOCOBALAMIN, VITAMIN B-12, (VITAMIN B-12 ORAL) Take by mouth. rosuvastatin (CRESTOR) 40 mg tablet Take 40 mg by mouth once daily. levothyroxine (SYNTHROID) 175 mcg tablet Take 175 mcg by mouth daily before breakfast. ascorbic acid (VITAMIN C) 500 mg tablet Take 500 mg by mouth once daily. multivitamin tablet Take 1 tablet by mouth once daily. Immunizations Immunization History Administered Date(s) Administered COVID-19 original vaccine, age 12+ yr, monovalent ([employer] - PURPLE TOP) 02/18/2021 COVID-19 original vaccine, full dose, monovalent (MODERNA) 05/02/2020 06/02/2020 Allergies ALLERGIES Allergen Reactions Sulfa (Sulfonamide * Unknown Unkown, was a child Family History FAMILY HISTORY Problem Relation Age of Onset Stroke Mother Cancer Mother Heart disease Father Hypertension Father Stroke Paternal Grandmother Anesthesia Problems No Family History Social History Social History Tobacco Use Smoking status: Former Current packs/day: 0.00 Average packs/day: 0.5 packs/day for 50.0 years (25.0 ttl pk-yrs) Types: Cigarettes Start date: 09/22/1973 Quit date: 09/23/2023 Years since quittin.0 Passive exposure: Current Smokeless tobacco: Never Tobacco comments: Quit September 26 Vaping Use Vaping status: Former Substance Use Topics Alcohol use: No Drug use: No Review of System See HPI Physical Exam There were no vitals taken for this visit. General: alert and appropriate, in no distress, well-hydrated, well nourished, and happy, smiling, interactive Respiratory: breathing non-labored Chest: equal chest rise with normal respiratory effort Neurologic: no obvious deficit Airway Patient's oralpharynx mallampati score : unable to assess Neck ROM: limited ROM Mouth opening: Adequate Short neck: No Thick neck: No Dental Loose or chipped teeth: No Dentures: No Diagnostic Data Last CT Chest - Impression Only CT CHEST WO IVCON Exam End: 09/28/2023 9:17 AM (Final result) Last XR Chest - Impression Only XR CHEST 1V FRONTAL Exam End: 10/05/2023 3:25 PM (Final result) I have personally reviewed and confirmed the imaging findings. Pulmonary Function Testing: No textual results found for the specified procedure(s). Lab Data: I have personally reviewed and confirmed the findings. No results found for: HB , HCT , WBC , PLT No results found for this basename: inr:1,ptsec:1 Potassium (mmol/L) Date Value 09/28/2023 3.5 No results found for: GLUC EKG RESULTS: Recent Results (from the past 8760 hour(s)) ECG COMPLETE Collection Time: 10/25/23 11:15 AM Result Value Ventricular Rate 65 Atrial Rate 65 P-R Interval 164 QRS Duration 92 QT Interval 402 QTC Calculation (Bazett) 418 Calculated P O'Brien 52 Calculated R O'Brien 66 Calculated T O'Brien 28 Impression NORMAL SINUS RHYTHM LOW VOLTAGE QRS, CONSIDER PULMONARY DISEASE, PERICARDIAL EFFUSION, OR NORMAL VARIANT BORDERLINE ECG Assessment/Plan: 1.) Lung mass Patient has a LLL lung mass which was positive for squamous cell carcinoma via TTNA at [facility]. Agree with plan for EBUS to complete staging. Risks and benefits of bronchoscopy reviewed. All questions answered. Patient has c/o chest pain with activity and relieved with rest. Given age and tobacco smoking hx, has increased risk for cardiovascular disease. Recommend evaluation by cardiology. ADDENDUM: message sent to Dr Craig, bronchoscopy team, and [facility] notifying them of patient's occasional chest pain. Will defer to the interventional director of housing and energy services performing the procedure on whetherthe patient needs cardiac clearance prior to proceeding with bronchoscopy. Patient has the following medical conditions which may affect willa-operative course: 2. Chronic obstructive pulmonary disease, unspecified COPD type ([facility]) - Recent PFTs completed at [facility] per patient. - on prn albuterol inhaler - CONSULT TO PULM/CRITICAL CARE; Future 3. Chest pain, unspecified type - Patient has left sided chest pain with activity that is relived by rest. - Recommend cardiac clearance. - ECG showed NSR - CONSULT TO CARDIOLOGY; Future 4. Hypertension, unspecified type - Controled on HCTZ and losartan 5. Hx of neck surgery - has limited ROM of his neck which has the potential to make intubation more difficult 6. TIA (transient ischemic attack) - CONSULT TO NEUROLOGY; Future 7. Other chronic pain - On [place]. - Patient reports he usually require more sedation during procedures 8. Former smoker - encouraged smoking cessation 9. PAD (peripheral artery disease) ([facility]) - Follows with vascular at another hospital ([facility]) This consultation note will be communicated to the referring provider. Nancy Elizondo APRN.MAXIMILIANO October 28, 2023, 11:38 AM documented in this encounterSelect Medical Cleveland [facility]08-21-2024 Telephone encounter Note * Telephone Encounter - Lo Hancock MD - 10/26/2023 9:23 PM EDT No - will need results but planning for carbo / taxol + Nivolumab x 3 cycles. [facility]08-21-2024 Miscellaneous Notes* Telephone Encounter - Lo Hancock MD - 10/26/2023 9:23 PM EDT No - will need results but planning for carbo / taxol + Nivolumab x 3 cycles. * Telephone Encounter - Prudence Chin RN - 10/26/2023 12:46 PM EDT Pt called to inform providers that he used Spiriva for the first time Tuesday and developed increased shortness of breath. Pt used Albuterol, and shortness of breath subsided. He has not used Spirivasince. RX from Lung doc at [facility]. They will notify them as well, for further instruction. Pt denies SOB at this time. Speaks in complete sentences, without audible distress. Bronchoscopy/EBUS/Bx with Dr Craig scheduled 11/01/23. Bobby: Any further recommendations? Prudence Chin RN documented in this encounterSelect Medical Cleveland Clinic [facility]08-21-2024 Instructions* Patient Instructions* Dana Crowe APRN.SACK CLEANING HAND - 10/26/2023 2:42 PM EDT Images from the original note were not included. [facility] PATIENT PREOPERATIVE INSTRUCTIONS Hugh Craig MD has scheduled you for your procedure at this [facility] center: [facility]: [phone] --[id number] [address]. Please check in on thet floor at registration desk 6. Arrival Time for Surgery: - The Surgery Center or hospital where you are having surgery will call the afternoon before surgery (or Tuesday for Tuesday surgery) with a scheduled arrival time. - If you have not heard by 4 pm, please contact the surgery center above. Please be aware that emergency situations arise, which may delay or change your surgical time. If this happens, we will notify you as soon as possible and regret any inconvenience. Please read below carefully for your personalized instructions. Dietary Restrictions: - No solid food after midnight. - You may have 12 ounces of clear liquids (water, clear juices such as apple juice or gatorade, carbonated beverages, clear tea, black coffee, jello) until 2 hours before scheduled arrival at facility. - Do not drink any alcohol after midnight the night before your surgery. - No Milk/Dairy - No Pulp Juices Medications: - If you are prescribed inhalers for breathing, continue using them. Unless instructed differently below, stay on all of your medications until your surgery. Approved medications to take the morning of surgery with a sip of water: Propranolol (Inderal), Levothyroxine (Synthroid) Preoperative Instructions for Patient's with Diabetes Mellitus/ Prediabetes Oral/ Injectable Medication Instructions - Metformin - HOLD DAY OF SURGERY Stop Plavix 5 days prior to surgery If you take any medications for erectile dysfunction-Cialis (Tadalafil), Levitra, Staxyn (Vardenafil) Viagra (Sildenenafil please do not take these for 48 hours before surgery. If you start any new medications after today's visit, please contact the surgeon's office. Blood Thinning Medications: - Stop NSAIDS (Ibuprofen, Advil, Aleve, Motrin, Celebrex, Mobic, etc.) 7 days before surgery, as directed by your surgeon. - Stop Aspirin 7 days before surgery, as directed by your surgeon. - Stop Vitamin E, ALL multi-vitamins, herbals and dietary supplements 14 days before surgery. - You may take Tylenol (Acetaminophen) or any of your pain medications that do not contain aspirin or NSAIDS as needed. Important Reminders: - If you use CPAP/BIPAP, and will be staying over night, bring the machine with you to the surgery center. - Candy, mints, and tobacco products are NOT permitted the morning of surgery. - Hearing aids and glasses may be worn the morning of surgery. - NO jewelry, body piercings, makeup, hairpins or contacts are to be worn the day of surgery. - You may wear your partials/dentures, but you may be asked to remove them prior to you're procedure If you develop symptoms such as a fever, cold, or flu, or have other changes to your health within TWO DAYS of scheduled surgery or the morning of surgery, please contact the surgery center above. Personal Belongings: -Please have photo ID and insurance cards. -If you do not have a copy of advance directives on file with us, please bring a copy with you on the day of surgery. - Leave ALL valuables and money at home or with family members. For Outpatient Procedures: - YOU MUST HAVE A RESPONSIBLE PLOWING GARDENS TAKE YOU HOME. A BALL WORKER OR DIRECTOR WOMEN CANNOT BE MADE A RESPONSIBLE PLOWING GARDENS. - We recommend that a responsible person stays with you overnight to take care of you. - You cannot stay in a hotel alone after outpatient surgery. You will not be permitted to have yoursurgery, if you do not have someone to take care of you. If you already have an Advance Directive, please fax a copy to [phone] or email to for it to be added to your chart. If you do not have an Advance Directive, you can find the appropriate form and more information at [email or web address]. We recommend that youcomplete the Advance Directive form found on the website and bring it with you the day of your surgery. It can be witnessed and scanned into your chart that day. Dana Crowe APRN.CNP documented in this encounter[facility] History and physical note * Dana Crowe APRN.CNP - 10/26/2023 2:22 PM EDT HISTORY AND PHYSICAL EXAMINATION SERVICE DATE: 10/26/2023 SERVICE TIME: 2:23 PM PRIMARY CARE PHYSICIAN: Dick Miranda MD REASON FOR VISIT: Erin Pena is a 67 year old male who is scheduled for BRONCHOSCOPY,RIGID/FLEXIBLE W/ FLUORO,W/ENDOBRONCHIAL ULTRASOUND (EBUS) GUIDED TRANSTRACHEAL/ TRANSBRONCHIAL ASPIRATION/BIOPSY,1 OR 2 MEDIASTINAL AND/OR HILAR LYMPH NODE STATIONS/STRUCTURES at the request of Dr. Hugh Craig for consultation. My final recommendation will be communicated back to the requesting physician by way of shared medical record or letter. 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 Currently holding ASA and Plavix as directed by outside physician KIKO (generalized anxiety disorder) Assessment: Using PRN valium Essential hypertension Assessment: Stable and compliant with medications Followed by PCP Last 5 Encounter BP Readings: Date: BP: 10/26/2023 136/74 10/21/2023 136/72 02/16/2012 147/76 10/15/2011 144/80 Mixed hyperlipidemia Assessment: Controlled with statin. Monitored per PCP. PAD (peripheral artery disease) ([facility]) Assessment: Known blockage - on baby ASA - following with vascular surgery Chronic pain syndrome Assessment: Managed with hydrocodone, takes 1-2 per day. Prediabetes Assessment: On metformin History of craniotomy Assessment: CSF leak Hill Activity Status Index: METS: Walk indoors, such as around the house (1.75 METs) Do light work around the house, such as dusting or washing dishes (2.70 METs) Take care of self; that is eating, dressing, bathing, using the toilet (2.75 METs) Climb a flight of stairs or walk up a hill (5.50 METs) DASI Score: 12.7 Patient denies any chest pain or undue shortness of breath with the above physical activity. Clinical Frailty Scale: 3. Well, with treated comorbid disease STOP-Bang Score: Has or is being treated for high blood pressure Patient over 50 years old Male patient Denies snoring loudly Denies feeling tired, fatigued, or sleepy during the daytime Has not been observed to stop breathing or choking/gasping during sleep BMI less than or equal to 35 kg/m^2 Does not have a large neck STOP-Bang Score: 3 ANESTHESIA FINDINGS: Intubation History: No history of difficult intubation Significant Anesthesia Considerations: none Airway History: No history of difficult airway I - PHYSICAL EVALUATION AIRWAY Patient intubated: No. Tracheostomy tube not present Mallampati: II. TM distance: >3 FB. Neck ROM: full ROM without neurological symptoms. Mouth opening: adequate. Short neck: no. Thick neck: no Saravia present: no Lip Bite Test: II Microretrognathia/Micronagthia/Recessed Chin: No DENTAL Dental findings: teeth intact. II - ANESTHESIA PLAN Beta Valentina Monitoring Plan Post Procedure Analgesic Plan Prepared for surgery: This patient is optimally prepared for surgery. CONSULTS: Patient does not require consults for optimization at this time. 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 Conservative measures have been ineffective. Patient has opted to proceed with above reccommended surgery and is here today for preanesthesia consultation. . PAST MEDICAL HISTORY 10/20/2023: Chronic obstructive pulmonary disease (HCC) No date: Hypertension No date: Hypothyroidism 2023: Lung cancer (HCC) Comment: Flores Abdi 03/14/2012: Other affections of shoulder region, not elsewhere classified PAST SURGICAL HISTORY No date: APPENDECTOMY No date: BRAIN SURGERY HX No date: COLONSCOPY SCREENING HIGH RISK No date: FINGER AMPUTATION (SPECIFY DIGIT) HX No date: HAND SURGERY HX No date: HEMORROIDECTOMY INTERNAL No date: LUNG BIOPSY; Left No date: NECK SURGERY HX No date: PAST SURGICAL HISTORY OF Comment: Heart cath No date: REMV CATARACT EXTRACAP,INSERT LENS No date: S KIT CRAINIOTOMY [id number] No date: SHOULDER ARTHROSCOPY/SURG No date: TYMPANOSTOMY GENERAL ANESTHESIA No date: XR CERVICAL FUSION OR Comment: C4 fusion FAMILY HISTORY Problem Relation Age of Onset Stroke Mother Cancer Mother Heart disease Father Hypertension Father Stroke Paternal Grandmother Anesthesia Problems No Family History SOCIAL HISTORY: Social History Tobacco Use Smoking status: Former Current packs/day: 0.00 Average packs/day: 0.5 packs/day for 50.0 years (25.0 ttl pk-yrs) Types: Cigarettes Start date: 09/22/1973 Quit date: 09/23/2023 Years since quittin.0 Passive exposure: Current Smokeless tobacco: Never Tobacco comments: Quit September 26 Vaping Use Vaping status: Former Substance Use Topics Alcohol use: No Drug use: No Prior to Admission medications as of 10/26/23 1506 Medication Sig Last Dose Taking albuterol HFA (PROVENTIL HFA, VENTOLIN HFA) 90 mcg/actuation inhaler Inhale 2 Puffs as instructed every 6 hours as needed. Taking Yes HYDROcodone-Acetaminophen (NORCO) 7.5-325 mg per tablet Take 1 tablet by mouth every 6 hours as needed. Yes propranolol (INDERAL) 20 mg tablet TAKE 1 TABLET BY MOUTH NEEDED FOR ANXIETY ATTACKS ONCE A DAY Taking Yes sildenafil (VIAGRA) 100 mg tablet Take 100 mg by mouth at bedtime as needed. Taking Yes terazosin (HYTRIN) 1 mg capsule Take 1 mg by mouth. Taking Yes traZODone (DESYREL) 50 mg tablet Take 50 mg by mouth. Taking Yes vitamin E, dl,tocopheryl acet, (VITAMIN E, DL, ACETATE,) 45 mg (100 unit) capsule Take 400 Units bymouth. Taking Yes metFORMIN (GLUCOPHAGE) 850 mg tablet Take 850 mg by mouth. Taking Yes meloxicam (MOBIC) 7.5 mg tablet Take 1 tablet by mouth once daily. Taking Yes losartan (COZAAR) 100 mg tablet Take 100 mg by mouth. Taking Yes krill oil 500 mg cap Take by mouth as directed. Taking Yes hydroCHLOROthiazide 50 mg tablet Take 50 mg by mouth. Taking Yes glucosamine HCl 750 mg tab Take by mouth. Taking Yes cholecalciferol (VITAMIN D3) 1,000 unit tab tablet Take 1,000 Units by mouth. Taking Yes atorvastatin (LIPITOR) 40 mg tablet Take 40 mg by mouth. Taking Yes aspirin, enteric coated (ASPIRIN, ENTERIC COATED) 81 mg EC tablet Take 81 mg by mouth. Taking Yes nicotine (NICODERM) 21 mg/24 hr Apply 1 Patch as directed. Taking Yes diazePAM (VALIUM) 5 mg tablet Take 5 mg by mouth. Taking Yes CYANOCOBALAMIN, VITAMIN B-12, (VITAMIN B-12 ORAL) Take by mouth. Taking Yes levothyroxine (SYNTHROID) 175 mcg tablet Take 175 mcg by mouth daily before breakfast. Taking Yes ascorbic acid (VITAMIN C) 500 mg tablet Take 500 mg by mouth once daily. Taking Yes multivitamin tablet Take 1 tablet by mouth once daily. Taking Yes clopidogrel (PLAVIX) 75 mg tablet Take 75 mg by mouth. Patient not taking: Reported on 10/26/2023 Not Taking indomethacin ER 75 mg CR capsule Take 1 capsule by mouth daily with breakfast. rosuvastatin (CRESTOR) 40 mg tablet Take 40 mg by mouth once daily. No medication comments found. ALLERGIES Allergen Reactions Sulfa (Sulfonamide * Unknown Unkown, was a child Covid Immunization Dates Overdue - Covid-19 Vaccine ( season) Overdue since 11/05/2022 02/18/2021 Imm Admin: COVID-19 original vaccine, age 12+ yr, monovalent (webtide - [facility]) 06/02/2020 Imm Admin: COVID-19 original vaccine, full dose, monovalent (MODERNA) 05/02/2020 Imm Admin: COVID-19 original vaccine, full dose, monovalent (MODERNA) REVIEW OF SYSTEMS: PAIN ASSESSMENT: General: No weight loss, malaise or fevers. 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 No history of esophageal varices, recent ascites, or ETOH greater than 2 drinks per day. : No history of dysuria, frequency or incontinence,, stones or chronic kidney disease Endocrine: Hypothyroidism Hematology: Chronic anti-coagulation / platelet meds (Aspirin, Plavix) Oncology: See HPI Psych: Anxiety Musculoskeletal: Back pain and Joint pain Skin: Negative for lesions, rash and itching. Objective PHYSICAL EXAM: VITALS: BP 136/74 Pulse 70 Temp (Src) 98.3 (Oral) Resp 14 Ht 5' 6 (1.68m) Wt 174 lb 2.6 oz (79.0kg) SpO2 98% BMI 28.12 kg/(m^2). General: Alert and oriented, No acute distress Skin: Normal color, no rash, no lesions. HEENT: EOM, pupils equal, round and reactive. Cardiovascular: Normal S1 & S2, no rubs, murmurs or gallops. No JVD. Pulse regular. Lungs: Normal breath sounds, no wheezes or crackles. Abdomen: Soft, non-tender, no rigidity. Extremities: No deformity, no edema or tenderness, no joint swelling or clubbing. Neurological: Normal cognition and motor skills. Pulses: Carotid and radial pulses normal +2. Diagnostic tests reviewed for today's visit: ntains abnormal data COMPLETE BLOOD COUNT Order: [id number] Component Ref Range & Units 3 wk ago White Blood Cells 4.0 - 11.0 X10E9/L 10.4 RBC count 4.10 - 5.70 X10E12/L 4.26 Hemoglobin 13.0 - 17.0 g/dL 12.3 Low Hematocrit 39 - 49 % 36.8 Low MCV 80 - 100 fL 87 MCH 27 - 34 pg 28.9 MCHC 32 - 36 g/dL 33.4 RDW 11.5 - 15.0 % 14.4 Platelets 150 - 450 X10E9/L 378 MPV 7 - 12 fL 7.8 % neutrophils % 69.5 % lymphocytes % 20.4 % monocytes % 7.4 % eosinophils % 2.1 % Basophils % 0.6 Neutrophils Absolute (A) 1.5 - 6.6 X10E9/L 7.2 High Lymphocytes Absolute 1.0 - 3.5 X10E9/L 2.1 Monocytes Absolute 0 - 0.9 X10E9/L 0.8 Eosinophils Absolute 0.0 - 0.4 X10E9/L 0.2 COMPREHENSIVE METABOLIC PANEL Order: [id number] Component Ref Range & Units 3 wk ago Sodium 134 - 146 mmol/L 136 Potassium 3.5 - 5.0 mmol/L 3.5 Chloride 98 - 109 mmol/L 98 Carbon Dioxide 22 - 32 mmol/L 30 Anion Gap 5 - 15 mmol/L 8 BUN 5 - 27 mg/dL 10 Creatinine 0.70 - 1.20 mg/dL 0.56 Low Comment: METHOD TRACEABLE TO IDMS STANDARD Glucose 65 - 99 mg/dL 119 High Calcium 8.5 - 10.5 mg/dL 8.6 Total Protein 6.0 - 8.0 g/dL 6.5 Albumin 3.2 - 5.3 g/dL 3.7 Alkaline Phosphatase 39 - 130 U/L 65 AST 0 - 41 U/L 15 ALT 0 - 40 U/L 19 Total bilirubin 0.3 - 1.2 mg/dL 0.4 eGFR (CKD-EPI)non-race dependent >59 ml/min/1.73sq.m >90 Most recent EKG Recent Results (from the past 8760 hour(s)) ECG COMPLETE Collection Time: 10/25/23 11:15 AM Result Value Ventricular Rate 65 Atrial Rate 65 P-R Interval 164 QRS Duration 92 QT Interval 402 QTC Calculation (Bazett) 418 Calculated P O'Brien 52 Calculated R O'Brien 66 Calculated T O'Brien 28 Impression NORMAL SINUS RHYTHM LOW VOLTAGE QRS, CONSIDER PULMONARY DISEASE, PERICARDIAL EFFUSION, OR NORMAL VARIANT BORDERLINE ECG Most recent Echo ECHO Order: [id number] Narrative Left Ventricle: Left ventricle appears normal in size. Systolic function is normal with an ejection fraction of 55-60%. There is no diastolic dysfunction and normal left atrial pressure. Lateral E' is 9.79 cm/s. Medial E' is 8.49 cm/s. Average E' is 10.0 cm/s. Left Ventricle Left ventricle appears normal in size. Wall thickness is normal. Systolic function is normal with an ejection fraction of 55-60%. No obvious regional wall motion abnormalities. There is no diastolic dysfunction and normal left atrial pressure. Lateral E' is 9.79 cm/s. Medial E' is 8.49 cm/s. Average E' is 10.0 cm/s. Right Ventricle Right ventricular size appears normal. The right ventricular basal diameter is 30.0 mm. Systolic function is normal. Left Atrium Left atrium volume index is normal. The left atrial volume index is 27.6 mL/m2. There is no obviousinteratrial septum shunt. . Right Atrium Right atrium is normal in size. The right atrial area is 14.4 cm2. IVC/SVC The right atrial pressure is estimated at 8 mmHg. IVC appears dilated with increased right atrial pressure. There is normal collapse with deep inspiration. Mitral Valve The leaflets are mildly thickened and exhibit normal excursion. There is trace regurgitation. Thereis no evidence of mitral valve stenosis. Tricuspid Valve Tricuspid valve appears to be normal. There is mild regurgitation. RVSP calculated at 34 mmHg. RVSPis based on RA pressure of 8 mmHg. Aortic Valve The aortic valve is trileaflet. There is no regurgitation or stenosis. Pulmonic Valve The pulmonic valve was not well visualized. There is no regurgitation. Ascending Aorta The aortic root is normal in size. Pericardium There is no pericardial effusion. Chest CT 09/2023 FINDINGS: Heart & Pericardium Unremarkable cardiac morphology.. No significant pericardial effusion. Thoracic Aorta & Great Vessels: Normal in diameter. . Common trunk of the innominate artery andthe left common carotid, a normal variant. Pulmonary Arteries: Unremarkable. Lymph Nodes: No enlarged thoracic lymph nodes. Mediastinum & Esophagus: Unremarkable. Central Airway: Unremarkable. Lungs: Redemonstrated 3.9 x 5.2 cm lobulated mass of the superior segment left upper lobe. There isabutment and minimal protrusion through the major fissure (2/49). Adjacent satellite nodule posteroinferior border measures 1.4 x 1.0 cm (2/56). Internal gas may reflect aerogenous communication and necrosis. Pleura: No pleural effusion, thickening or pneumothorax. Lower Neck & Thyroid: Unremarkable. Visualized Upper Abdomen: Vicarious excretion of contrast through gallbladder.. Thoracic Spine & Chest Wall: No suspicious osseous lesion. CTA Head/Neck IMPRESSION NECK: * Partially visualized lobulated left lower lobe pulmonary mass measuring up to 4.8 cm highly concerning for malignancy. Complete CT chest examination recommended for further evaluation. 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 * Mild (less than 50%) luminal narrowing of the proximal left internal carotid artery. Impression Head: Occlusion of the right internal carotid artery. There is collateral opacification at the right ICA terminus intracranially likely via patent anterior and posterior communicating arteries. Otherwise no acute findings on CTA head. Instructions Given to Patient: Instructions located in the after visit summary. Patient given verbal and written preop instructions and voices comprehension and compliance. SIGNATURE: Dana Crowe APRN.CNP PATIENT NAME: Erin Pena DATE: 10/26/2023 TIME: 2:59 PM [facility] History and physical note* Dana Crowe APRN.CNP - 10/26/2023 2:22 PM EDT HISTORY AND PHYSICAL EXAMINATION SERVICE DATE: 10/26/2023 SERVICE TIME: 2:23 PM PRIMARY CARE PHYSICIAN: Dick Miranda MD REASON FOR VISIT: Erin Pena is a 67 year old male who is scheduled for BRONCHOSCOPY,RIGID/FLEXIBLE W/ FLUORO,W/ENDOBRONCHIAL ULTRASOUND (EBUS) GUIDED TRANSTRACHEAL/ TRANSBRONCHIAL ASPIRATION/BIOPSY,1 OR 2 MEDIASTINAL AND/OR HILAR LYMPH NODE STATIONS/STRUCTURES at the request of Dr. Hugh Craig for consultation. My final recommendation will be communicated back to the requesting physician by way of shared medical record or letter. 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 Currently holding ASA and Plavix as directed by outside physician KIKO (generalized anxiety disorder) Assessment: Using PRN valium Essential hypertension Assessment: Stable and compliant with medications Followed by PCP Last 5 Encounter BP Readings: Date: BP: 10/26/2023 136/74 10/21/2023 136/72 02/16/2012 147/76 10/15/2011 144/80 Mixed hyperlipidemia Assessment: Controlled with statin. Monitored per PCP. PAD (peripheral artery disease) ([facility]) Assessment: Known blockage - on baby ASA - following with vascular surgery Chronic pain syndrome Assessment: Managed with hydrocodone, takes 1-2 per day. Prediabetes Assessment: On metformin History of craniotomy Assessment: CSF leak Hill Activity Status Index: METS: Walk indoors, such as around the house (1.75 METs) Do light work around the house, such as dusting or washing dishes (2.70 METs) Take care of self; that is eating, dressing, bathing, using the toilet (2.75 METs) Climb a flight of stairs or walk up a hill (5.50 METs) DASI Score: 12.7 Patient denies any chest pain or undue shortness of breath with the above physical activity. Clinical Frailty Scale: 3. Well, with treated comorbid disease STOP-Bang Score: Has or is being treated for high blood pressure Patient over 50 years old Male patient Denies snoring loudly Denies feeling tired, fatigued, or sleepy during the daytime Has not been observed to stop breathing or choking/gasping during sleep BMI less than or equal to 35 kg/m^2 Does not have a large neck STOP-Bang Score: 3 ANESTHESIA FINDINGS: Intubation History: No history of difficult intubation Significant Anesthesia Considerations: none Airway History: No history of difficult airway I - PHYSICAL EVALUATION AIRWAY Patient intubated: No. Tracheostomy tube not present Mallampati: II. TM distance: >3 FB. Neck ROM: full ROM without neurological symptoms. Mouth opening: adequate. Short neck: no. Thick neck: no Saravia present: no Lip Bite Test: II Microretrognathia/Micronagthia/Recessed Chin: No DENTAL Dental findings: teeth intact. II - ANESTHESIA PLAN Beta Valentina Monitoring Plan Post Procedure Analgesic Plan Prepared for surgery: This patient is optimally prepared for surgery. CONSULTS: Patient does not require consults for optimization at this time. 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 Conservative measures have been ineffective. Patient has opted to proceed with above reccommended surgery and is here today for preanesthesia consultation. . PAST MEDICAL HISTORY 10/20/2023: Chronic obstructive pulmonary disease (HCC) No date: Hypertension No date: Hypothyroidism 2023: Lung cancer (HCC) Comment: Flores Abdi 03/14/2012: Other affections of shoulder region, not elsewhere classified PAST SURGICAL HISTORY No date: APPENDECTOMY No date: BRAIN SURGERY HX No date: COLONSCOPY SCREENING HIGH RISK No date: FINGER AMPUTATION (SPECIFY DIGIT) HX No date: HAND SURGERY HX No date: HEMORROIDECTOMY INTERNAL No date: LUNG BIOPSY; Left No date: NECK SURGERY HX No date: PAST SURGICAL HISTORY OF Comment: Heart cath No date: REMV CATARACT EXTRACAP,INSERT LENS No date: S KIT CRAINIOTOMY [id number] No date: SHOULDER ARTHROSCOPY/SURG No date: TYMPANOSTOMY GENERAL ANESTHESIA No date: XR CERVICAL FUSION OR Comment: C4 fusion FAMILY HISTORY Problem Relation Age of Onset Stroke Mother Cancer Mother Heart disease Father Hypertension Father Stroke Paternal Grandmother Anesthesia Problems No Family History SOCIAL HISTORY: Social History Tobacco Use Smoking status: Former Current packs/day: 0.00 Average packs/day: 0.5 packs/day for 50.0 years (25.0 ttl pk-yrs) Types: Cigarettes Start date: 09/22/1973 Quit date: 09/23/2023 Years since quittin.0 Passive exposure: Current Smokeless tobacco: Never Tobacco comments: Quit September 26 Vaping Use Vaping status: Former Substance Use Topics Alcohol use: No Drug use: No Prior to Admission medications as of 10/26/23 1506 Medication Sig Last Dose Taking albuterol HFA (PROVENTIL HFA, VENTOLIN HFA) 90 mcg/actuation inhaler Inhale 2 Puffs as instructed every 6 hours as needed. Taking Yes HYDROcodone-Acetaminophen (NORCO) 7.5-325 mg per tablet Take 1 tablet by mouth every 6 hours as needed. Yes propranolol (INDERAL) 20 mg tablet TAKE 1 TABLET BY MOUTH NEEDED FOR ANXIETY ATTACKS ONCE A DAY Taking Yes sildenafil (VIAGRA) 100 mg tablet Take 100 mg by mouth at bedtime as needed. Taking Yes terazosin (HYTRIN) 1 mg capsule Take 1 mg by mouth. Taking Yes traZODone (DESYREL) 50 mg tablet Take 50 mg by mouth. Taking Yes vitamin E, dl,tocopheryl acet, (VITAMIN E, DL, ACETATE,) 45 mg (100 unit) capsule Take 400 Units bymouth. Taking Yes metFORMIN (GLUCOPHAGE) 850 mg tablet Take 850 mg by mouth. Taking Yes meloxicam (MOBIC) 7.5 mg tablet Take 1 tablet by mouth once daily. Taking Yes losartan (COZAAR) 100 mg tablet Take 100 mg by mouth. Taking Yes krill oil 500 mg cap Take by mouth as directed. Taking Yes hydroCHLOROthiazide 50 mg tablet Take 50 mg by mouth. Taking Yes glucosamine HCl 750 mg tab Take by mouth. Taking Yes cholecalciferol (VITAMIN D3) 1,000 unit tab tablet Take 1,000 Units by mouth. Taking Yes atorvastatin (LIPITOR) 40 mg tablet Take 40 mg by mouth. Taking Yes aspirin, enteric coated (ASPIRIN, ENTERIC COATED) 81 mg EC tablet Take 81 mg by mouth. Taking Yes nicotine (NICODERM) 21 mg/24 hr Apply 1 Patch as directed. Taking Yes diazePAM (VALIUM) 5 mg tablet Take 5 mg by mouth. Taking Yes CYANOCOBALAMIN, VITAMIN B-12, (VITAMIN B-12 ORAL) Take by mouth. Taking Yes levothyroxine (SYNTHROID) 175 mcg tablet Take 175 mcg by mouth daily before breakfast. Taking Yes ascorbic acid (VITAMIN C) 500 mg tablet Take 500 mg by mouth once daily. Taking Yes multivitamin tablet Take 1 tablet by mouth once daily. Taking Yes clopidogrel (PLAVIX) 75 mg tablet Take 75 mg by mouth. Patient not taking: Reported on 10/26/2023 Not Taking indomethacin ER 75 mg CR capsule Take 1 capsule by mouth daily with breakfast. rosuvastatin (CRESTOR) 40 mg tablet Take 40 mg by mouth once daily. No medication comments found. ALLERGIES Allergen Reactions Sulfa (Sulfonamide * Unknown Unkown, was a child Covid Immunization Dates Overdue - Covid-19 Vaccine ( season) Overdue since 11/05/2022 02/18/2021 Imm Admin: COVID-19 original vaccine, age 12+ yr, monovalent (webtide - [facility]) 06/02/2020 Imm Admin: COVID-19 original vaccine, full dose, monovalent (MODERNA) 05/02/2020 Imm Admin: COVID-19 original vaccine, full dose, monovalent (MODERNA) REVIEW OF SYSTEMS: PAIN ASSESSMENT: General: No weight loss, malaise or fevers. 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 No history of esophageal varices, recent ascites, or ETOH greater than 2 drinks per day. : No history of dysuria, frequency or incontinence,, stones or chronic kidney disease Endocrine: Hypothyroidism Hematology: Chronic anti-coagulation / platelet meds (Aspirin, Plavix) Oncology: See HPI Psych: Anxiety Musculoskeletal: Back pain and Joint pain Skin: Negative for lesions, rash and itching. Objective PHYSICAL EXAM: VITALS: BP 136/74 Pulse 70 Temp (Src) 98.3 (Oral) Resp 14 Ht 5' 6 (1.68m) Wt 174 lb 2.6 oz (79.0kg) SpO2 98% BMI 28.12 kg/(m^2). General: Alert and oriented, No acute distress Skin: Normal color, no rash, no lesions. HEENT: EOM, pupils equal, round and reactive. Cardiovascular: Normal S1 & S2, no rubs, murmurs or gallops. No JVD. Pulse regular. Lungs: Normal breath sounds, no wheezes or crackles. Abdomen: Soft, non-tender, no rigidity. Extremities: No deformity, no edema or tenderness, no joint swelling or clubbing. Neurological: Normal cognition and motor skills. Pulses: Carotid and radial pulses normal +2. Diagnostic tests reviewed for today's visit: ntains abnormal data COMPLETE BLOOD COUNT Order: [id number] Component Ref Range & Units 3 wk ago White Blood Cells 4.0 - 11.0 X10E9/L 10.4 RBC count 4.10 - 5.70 X10E12/L 4.26 Hemoglobin 13.0 - 17.0 g/dL 12.3 Low Hematocrit 39 - 49 % 36.8 Low MCV 80 - 100 fL 87 MCH 27 - 34 pg 28.9 MCHC 32 - 36 g/dL 33.4 RDW 11.5 - 15.0 % 14.4 Platelets 150 - 450 X10E9/L 378 MPV 7 - 12 fL 7.8 % neutrophils % 69.5 % lymphocytes % 20.4 % monocytes % 7.4 % eosinophils % 2.1 % Basophils % 0.6 Neutrophils Absolute (A) 1.5 - 6.6 X10E9/L 7.2 High Lymphocytes Absolute 1.0 - 3.5 X10E9/L 2.1 Monocytes Absolute 0 - 0.9 X10E9/L 0.8 Eosinophils Absolute 0.0 - 0.4 X10E9/L 0.2 COMPREHENSIVE METABOLIC PANEL Order: [id number] Component Ref Range & Units 3 wk ago Sodium 134 - 146 mmol/L 136 Potassium 3.5 - 5.0 mmol/L 3.5 Chloride 98 - 109 mmol/L 98 Carbon Dioxide 22 - 32 mmol/L 30 Anion Gap 5 - 15 mmol/L 8 BUN 5 - 27 mg/dL 10 Creatinine 0.70 - 1.20 mg/dL 0.56 Low Comment: METHOD TRACEABLE TO IDMS STANDARD Glucose 65 - 99 mg/dL 119 High Calcium 8.5 - 10.5 mg/dL 8.6 Total Protein 6.0 - 8.0 g/dL 6.5 Albumin 3.2 - 5.3 g/dL 3.7 Alkaline Phosphatase 39 - 130 U/L 65 AST 0 - 41 U/L 15 ALT 0 - 40 U/L 19 Total bilirubin 0.3 - 1.2 mg/dL 0.4 eGFR (CKD-EPI)non-race dependent >59 ml/min/1.73sq.m >90 Most recent EKG Recent Results (from the past 8760 hour(s)) ECG COMPLETE Collection Time: 10/25/23 11:15 AM Result Value Ventricular Rate 65 Atrial Rate 65 P-R Interval 164 QRS Duration 92 QT Interval 402 QTC Calculation (Bazett) 418 Calculated P O'Brien 52 Calculated R O'Brien 66 Calculated T O'Brien 28 Impression NORMAL SINUS RHYTHM LOW VOLTAGE QRS, CONSIDER PULMONARY DISEASE, PERICARDIAL EFFUSION, OR NORMAL VARIANT BORDERLINE ECG Most recent Echo ECHO Order: [id number] Narrative Left Ventricle: Left ventricle appears normal in size. Systolic function is normal with an ejection fraction of 55-60%. There is no diastolic dysfunction and normal left atrial pressure. Lateral E' is 9.79 cm/s. Medial E' is 8.49 cm/s. Average E' is 10.0 cm/s. Left Ventricle Left ventricle appears normal in size. Wall thickness is normal. Systolic function is normal with an ejection fraction of 55-60%. No obvious regional wall motion abnormalities. There is no diastolic dysfunction and normal left atrial pressure. Lateral E' is 9.79 cm/s. Medial E' is 8.49 cm/s. Average E' is 10.0 cm/s. Right Ventricle Right ventricular size appears normal. The right ventricular basal diameter is 30.0 mm. Systolic function is normal. Left Atrium Left atrium volume index is normal. The left atrial volume index is 27.6 mL/m2. There is no obviousinteratrial septum shunt. . Right Atrium Right atrium is normal in size. The right atrial area is 14.4 cm2. IVC/SVC The right atrial pressure is estimated at 8 mmHg. IVC appears dilated with increased right atrial pressure. There is normal collapse with deep inspiration. Mitral Valve The leaflets are mildly thickened and exhibit normal excursion. There is trace regurgitation. Thereis no evidence of mitral valve stenosis. Tricuspid Valve Tricuspid valve appears to be normal. There is mild regurgitation. RVSP calculated at 34 mmHg. RVSPis based on RA pressure of 8 mmHg. Aortic Valve The aortic valve is trileaflet. There is no regurgitation or stenosis. Pulmonic Valve The pulmonic valve was not well visualized. There is no regurgitation. Ascending Aorta The aortic root is normal in size. Pericardium There is no pericardial effusion. Chest CT 09/2023 FINDINGS: Heart & Pericardium Unremarkable cardiac morphology.. No significant pericardial effusion. Thoracic Aorta & Great Vessels: Normal in diameter. . Common trunk of the innominate artery andthe left common carotid, a normal variant. Pulmonary Arteries: Unremarkable. Lymph Nodes: No enlarged thoracic lymph nodes. Mediastinum & Esophagus: Unremarkable. Central Airway: Unremarkable. Lungs: Redemonstrated 3.9 x 5.2 cm lobulated mass of the superior segment left upper lobe. There isabutment and minimal protrusion through the major fissure (2/49). Adjacent satellite nodule posteroinferior border measures 1.4 x 1.0 cm (2/56). Internal gas may reflect aerogenous communication and necrosis. Pleura: No pleural effusion, thickening or pneumothorax. Lower Neck & Thyroid: Unremarkable. Visualized Upper Abdomen: Vicarious excretion of contrast through gallbladder.. Thoracic Spine & Chest Wall: No suspicious osseous lesion. CTA Head/Neck IMPRESSION NECK: * Partially visualized lobulated left lower lobe pulmonary mass measuring up to 4.8 cm highly concerning for malignancy. Complete CT chest examination recommended for further evaluation. 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 * Mild (less than 50%) luminal narrowing of the proximal left internal carotid artery. Impression Head: Occlusion of the right internal carotid artery. There is collateral opacification at the right ICA terminus intracranially likely via patent anterior and posterior communicating arteries. Otherwise no acute findings on CTA head. Instructions Given to Patient: Instructions located in the after visit summary. Patient given verbal and written preop instructions and voices comprehension and compliance. SIGNATURE: Dana Crowe APRN.CNP PATIENT NAME: Erin Pena DATE: 10/26/2023 TIME: 2:59 PM documented in this encounterSelect [facility] Telephone encounter Note * Telephone Encounter - Prudence Chin RN - 10/26/2023 12:46 PM EDT Pt called to inform providers that he used Spiriva for the first time Tuesday and developed increased shortness of breath. Pt used Albuterol, and shortness of breath subsided. He has not used Spirivasince. RX from Lung doc at [facility]. They will notify them as well, for further instruction. Pt denies SOB at this time. Speaks in complete sentences, without audible distress. Bronchoscopy/EBUS/Bx with Dr Craig scheduled 11/01/23. Bobby: Any further recommendations? Prudence Chin RN [facility]08-20-[facility] Nurse Note* Gayathri Fuentes MA - 10/25/2023 11:25 AM EDT Patient identified by 2 identifiers. EKG performed as ordered. Gayathri Fuentes MA [facility]08-20-2024 Nurse Note* Gayathri Fuentes MA - 10/25/2023 11:25 AM EDT Patient identified by 2 identifiers. EKG performed as ordered. Gayathri Fuentes MA documented in this encounterSelect [facility] History of Present illness Narrative* Lenora Rodrigez RN - 10/25/2023 11:06 AM EDT Spoke with patient and will get his treatment at . Future apt is cancelled. Dr. Abdi updated. ===View-only below this line=== ----- Message ----- From: Gerald Abdi MD Sent: 10/24/2023 1:14 PM EDT To: [facility] Onc Nurses Subject: FW: Import Pt will likely have treatment done at [facility]. Please verify. ----- Message ----- From: Ivy Campo CMA Sent: 10/24/2023 12:35 PM EDT To: Gerald Abdi MD Subject: Import Imported by Ivy Campo CMA on 10/24/2023 at 12:35 PM to the following: Scanned Document on 10/24/2023 with Ivy Campo CMA [[id number]] documented in this [facility]24 NoteHNO ID: [id number] Author: ?, ?, ? Service: ? Author Type: ? Type: Progress Notes Filed: 10/25/2023 10:13 Note Text: Patient set up with [facility], and [facility] Telephone encounter Note* Telephone Encounter - Kalee Daniel - 10/25/2023 8:46 AM EDT 2nd opinion pathology requested from [facility] to be sent to [facility] for review. Thank you [facility]08-20-2024 Miscellaneous Notes* Telephone Encounter - Kalee Daniel - 10/25/2023 8:46 AM EDT 2nd opinion pathology requested from [facility] to be sent to [facility] for review. Thank you * Telephone Encounter - Prudence Chin RN - 10/24/2023 1:16 PM EDT Maria A/Kalee: Please complete process Thank you, Prudence Chin RN * Telephone Encounter - Prudence Chin RN - 10/24/2023 11:06 AM EDT Bobby: Please review and sign pended order for second review * Telephone Encounter - Kalee Daniel - 10/24/2023 9:15 AM EDT The Pathology in the chart is the only pathology at [facility]. Does this need a second opinion from [facility]? Please place Molecular study orders. Thanks for your help. documented in this encounterSelect [facility]-2024 NoteHNO ID: [id number] Author: ?, ?, ? Service: ? Author Type: ? Type: Progress Notes Filed: 10/24/2023 16:54 Note Text: Called, s/w patient and spouse on the line regarding: Bronchoscopy Request: Procedure Date 11/01/2023 Location: [facility]: [address] [place] [address] Check in: 1st floor Admission Arrival time: Will be call to them the afternoon the day prior to the procedure Parking: Executive Director, or at adjacent Parking garage Advised patient NPO after midnight from evening prior, through procedure time Patient will need a automobile drivers Scheduling needs: EKG NPV- Scheduled Communication of medication: Is patient on anticoagulants/anti-plt therapy? Yes Plavix or medications alike ok to stop medication for 5 days Provided patient with office number, and time to ask questions, and write down information Provide office # of: [phone] Also sent a my Chart message with provided informationCambridge [facility]23 History of Present illness Narrative* Zaira Huang - 10/24/2023 4:53 PM EDT Called, s/w patient and spouse on the line regarding: Bronchoscopy Request: Procedure Date 11/01/2023 Location: [facility]: [address] [place] [address] Check in: 1st floor Admission Arrival time: Will be call to them the afternoon the day prior to the procedure Parking: Executive Director, or at adjacent Parking garage Advised patient NPO after midnight from evening prior, through procedure time Patient will need a automobile drivers Scheduling needs: EKG NPV- Scheduled Communication of medication: Is patient on anticoagulants/anti-plt therapy? Yes Plavix or medications alike ok to stop medication for 5 days Provided patient with office number, and time to ask questions, and write down information Provide office # of: [phone] x [phone] Also sent a [employer] Chart message with provided information * Hugh Craig MD - 10/24/2023 4:12 PM EDT Bronchoscopy Request: Please schedule patient for the following: Bronchoscopy Procedures: EBUS Pre-Procedure visit required: Yes Visit type: New Consultation Anticipated Procedure Date: 11/01/23 Physician Performing Bronchoscopy: Dr. Craig Needs Labs: No (see care everywhere) Needs EKG: Yes Needs CT: No Does the pt need cardiac clearance? No Is patient on anticoagulants/anti-plt therapy? Yes Plavix or medications alike ok to stop medication for 5 days Is patient on GLP-1 agonsits (ie Ozempic, Mounjaro, Trulicity, etc)? No Is patient on SGLT2 inhibitors ( -flozin drugs - Jardiance, etc)? No IF YES TO EITHER OF ABOVE TWO QUESTIONS PLEASE REFER TO CC ANESTHESIA GUIDANCE ON HOLDING Diagnosis/Reason for Bronchoscopy: Recent dx of LLL squamous cell, needs staging EBUS Referred by: Khadijah Reviewed by: NEERAJ Craig MD October 24, 2023 4:12 PM documented in this encounterSelect [facility]-2024 NoteHNO ID: [id number] Author: TOMMIE MCFADDEN RN Service: ? Author Type: Physician Type: Progress Notes Filed: 10/25/2023 11:07 Note Text: Bronchoscopy Request: Please schedule patient for the following: Bronchoscopy Procedures: EBUS Pre-Procedure visit required: Yes Visit type: New Consultation Anticipated Procedure Date: 11/01/23 Physician Performing Bronchoscopy: Dr. Craig Needs Labs: No (see care everywhere) Needs EKG: Yes Needs CT: No Does the pt need cardiac clearance? No Is patient on anticoagulants/anti-plt therapy? Yes Plavix or medications alike ok to stop medication for 5 days Is patient on GLP-1 agonsits (ie Ozempic, Mounjaro, Trulicity, etc)? No Is patient on SGLT2 inhibitors (?-flozin? drugs - Jardiance, etc)? No 10/25/2023 - spoke with patient in regards to holding meloxicam and multi-vitamins until after the procedure. Patient verbalized understanding using teach back method and requested information sent via [employer] also. Message sent per request. IF YES TO EITHER OF ABOVE TWO QUESTIONS PLEASE REFER TO [facility] ANESTHESIA GUIDANCE ON HOLDING Diagnosis/Reason for Bronchoscopy: Recent dx of LLL squamous cell, needs staging EBUS Referred by: Khadijah Reviewed by: NEERAJ Craig MD October 24, 2023 4:12 [facility]08-19-2024 Telephone encounter Note* Telephone Encounter - Prudence Chin RN - 10/24/2023 1:16 PM EDT Maria A/Kalee: Please complete process Thank you, Prudenec Chin RN [facility]-2024 Telephone encounter Note* Telephone Encounter - Prudence Chin RN - 10/24/2023 11:06 AM EDT Bobby: Please review and sign pended order for second review [facility]08-[facility]-2024 Telephone encounter Note* Telephone Encounter - Kalee Daniel - 10/24/2023 9:15 AM EDT The Pathology in the chart is the only pathology at [facility]. Does this need a second opinion from [facility]? Please place Molecular study orders. Thanks for your help. [facility]-2024 Telephone encounter Note* Telephone Encounter - Evangelina Linton - 10/24/2023 8:56 AM EDT Images from the original note were not included. Lo Hancock MD Wudel, Leonard, MD; Kalee Daniel; Evangelina Linton; Hugh Craig MD; Wendy Oreilly Thanks Dex - do you want to see him a little later on to assess resectability? Best, Bobby. Previous Messages ----- Message ----- From: Savanah Oreilly MD Sent: 10/24/2023 6:48 AM EDT To: Lo Hancock MD; Hugh Craig MD; * Bobby, Good morning. I looked at the images. Agree, neoadjuvant followed by definitive resection sounds like a good plan. Thanks, Dex ----- Message ----- From: Lo Hancock MD Sent: 10/23/2023 11:04 AM EDT To: Savanah Oreilly MD; Hugh Craig MD; * Jameel Martinez and Dex - sending this gentleman for completion of staging for new diagnosis of left upper lobe squamous cell ca - he initially appears to be a good candidate for neoadjuvant chemo / IO. Thanks - by the way the path from [facility] is discordant in terms of location from images and the ammendment is confusing too. Bobby Monaco. [facility] Miscellaneous Notes* Telephone Encounter - Evangelina Linton - 10/24/2023 8:56 AM EDT Images from the original note were not included. Lo Hancock MD Wudel, Leonard, MD; Kalee Daniel; Evangelina Linton; Hugh Craig MD; Wendy Oreilly - do you want to see him a little later on to assess resectability? Bobby Monaco. Previous Messages ----- Message ----- From: Savanah Oreilly MD Sent: 10/24/2023 6:48 AM EDT To: Lo Hancock MD; Hugh Craig MD; * Bobby, Good morning. I looked at the images. Agree, neoadjuvant followed by definitive resection sounds like a good plan. Dex Magaña ----- Message ----- From: Lo Hancock MD Sent: 10/23/2023 11:04 AM EDT To: Savanah Oreilly MD; Hugh Craig MD; * Jameel Martinez and Dex - sending this gentleman for completion of staging for new diagnosis of left upper lobe squamous cell ca - he initially appears to be a good candidate for neoadjuvant chemo / IO. Thanks - by the way the path from [facility] is discordant in terms of location from images and the ammendment is confusing too. Bobby Monaco. documented in this encounterSelect [facility]-2024 Instructions* Patient Instructions* Posavac, Nieves - 10/21/2023 4:49 PM EDT Referral to Dr. Craig and Dr. Oreilly Obtain pathology from [facility] Molecular studies to be done on outside path documented in this encounterSelect [facility] History of Present illness Narrative* Lo Hancock MD - 10/21/2023 4:30 PM EDT Images from the original note were not included. NAME: Erin Pena [facility] NO.: [id number] DATE OF SERVICE: October 21, 2023 (Khadijah) Referring Provider: Gerald Abdi MD Consultation requested by Dr. Abdi for an opinion regarding Mr. Erin Pena, and my final recommendations will be communicated back to the requesting physician by way of shared medical record or letter via US mail. Additional Clinicians involved in Erin Pena's care: DIAGNOSIS: Squamous cell lung ca Left upper lobe - cT3 cNx, cM0 - stage IIB vs. 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 Anticipate neoadjuvant chemo / IO. Still needs pathology review and molecular studies. PLAN: Referral to Dr. Craig and Dr. Oreilly Obtain pathology from [facility] Molecular studies to be done on outside path Plan to start neoadjuvant therapy after staging q 3 weeks x3 Needs education and consent Labs on day of start HPI: CASE HISTORY: Reverse Chronological Order 10/21/2023 - PET/CT: Abnormal uptake confined to the left upper lobe mass without evidence for metastatic disease. 10/05/2023 - Lung, left lower lobe, core biopsy: at [facility] - Invasive squamous cell carcinoma Comment: In order to classify the neoplasm, immunohistochemical staining is performed on 1B and demonstrates that the tumor cells are diffusely positive for AE1/AE3 and p40, and negative for TTF-1 and Napsin A with adequate controls, supporting the above diagnosis 09/28/2023 - CT Chest: 5.2 cm left upper lobe mass with satellite nodule, concerning for malignancy. Focal necrotizing pneumonia felt less likely but could appear similarly in the appropriate clinical setting. 09/28/2023 - MRI Brain: No acute intracranial findings. 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 09/27/2023 - CTA Neck: Partially visualized lobulated left lower lobe pulmonary mass measuring up to 4.8 cm highly concerning for malignancy. Complete CT chest examination recommended for further evaluation. 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 Mild (less than 50%) luminal narrowing of the proximal left internal carotid artery. 09/27/2023-09/29/2023 - Admitted at [facility] with left sided weakness, slurred speech - stroke workup negative 09/25/2023 - ER for bilateral leg weakness Initial Visit, October 21, 2023: Erin Pena presents today for a Hematology and Oncology evaluation and second opinion. He is joined by his , Mandy. He is a 67 year old male who was recently diagnosed with invasive squamouscell carcinoma of the left lower lung. He completed a PET/CT this morning which shows confined uptake in the left lung without metastatic disease. I recommended chemo+immuno treatment followed by surgery once staging studies are completed. He will also need PFTs to give predictive capacity following a potential resection. He is in agreement to start after staging is complete. Will refer him to Drs. Craig and Afia forsurgical evaluation. 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 Erin's [id number] is Arie Baker, who is my patient also. REVIEW OF SYSTEMS Per HPI and otherwise negative by full review of organ systems. ECOG PERFORMANCE STATUS: 1 PHYSICAL EXAMINATION: Vitals: BP 136/72 Pulse 77 Temp (Src) 97.1 (Temporal) Resp 18 Wt 176 lb 2.4 oz (79.9kg) SpO2 97% There is no height or weight on file to calculate BSA. Exam limited to gross visualization where appropriate. Gen.: This is an age-appropriate patient in no acute distress. Head: Appears atraumatic with no visible lesions. Eyes: Pupils equally round and reactive to light, extraocular muscles are intact. Neck: Supple. Respiratory: Appears to be respiring comfortably. Neurologic: Nonfocal to gross visualization. Alert and oriented 3. Psychiatric: No evidence of inappropriate anxiety or depression. Skin: Visible areas of skin without rash, lesions, wounds or petechiae. ALLERGIES: ALLERGIES Allergen Reactions Sulfa (Sulfonamide * Unknown Unkown, was a child MEDICATIONS: propranolol (INDERAL) 20 mg tablet TAKE 1 TABLET BY MOUTH NEEDED FOR ANXIETY ATTACKS ONCE A DAY terazosin (HYTRIN) 1 mg capsule Take 1 mg by mouth. traZODone (DESYREL) 50 mg tablet Take 50 mg by mouth. vitamin E, dl,tocopheryl acet, (VITAMIN E, DL, ACETATE,) 45 mg (100 unit) capsule Take 400 Units bymouth. metFORMIN (GLUCOPHAGE) 850 mg tablet Take 850 mg by mouth. meloxicam (MOBIC) 7.5 mg tablet Take 1 tablet by mouth once daily. losartan (COZAAR) 100 mg tablet Take 100 mg by mouth. krill oil 500 mg cap Take by mouth as directed. hydroCHLOROthiazide 50 mg tablet Take 50 mg by mouth. glucosamine HCl 750 mg tab Take by mouth. cholecalciferol (VITAMIN D3) 1,000 unit tab tablet Take 1,000 Units by mouth. atorvastatin (LIPITOR) 40 mg tablet Take 40 mg by mouth. nicotine (NICODERM) 21 mg/24 hr Apply 1 Patch as directed. rosuvastatin (CRESTOR) 40 mg tablet Take 40 mg by mouth once daily. Valsartan-Hydrochlorothiazide (DIOVAN HCT) 160-25 mg per tablet Take 1 tablet by mouth once daily. levothyroxine (SYNTHROID) 175 mcg tablet Take 175 mcg by mouth daily before breakfast. DOCOSAHEXANOIC ACID/EPA (FISH OIL ORAL) Take by mouth. Takes 1400mg once daily ascorbic acid (VITAMIN C) 500 mg tablet Take 500 mg by mouth once daily. multivitamin tablet Take 1 tablet by mouth once daily. hydrocodone-acetaminophen ES (VICODIN ES) 7.5-750 mg per tablet Take 1 tablet by mouth every 6 hours as needed. Takes one half to one daily, may take total of one and one half pills IF needed in one day sildenafil (VIAGRA) 100 mg tablet Take 100 mg by mouth at bedtime as needed. aspirin, enteric coated (ASPIRIN, ENTERIC COATED) 81 mg EC tablet Take 81 mg by mouth. (Patient nottaking: Reported on 10/21/2023) methylphenidate (RITALIN) 10 mg tablet Take 1 tablet as needed by oral route. methylphenidate (RITALIN) 5 mg tablet Take 1 tablet(s) in AM and at 1 PM by oral route. diazePAM (VALIUM) 5 mg tablet Take 5 mg by mouth. clopidogrel (PLAVIX) 75 mg tablet Take 75 mg by mouth. (Patient not taking: Reported on 10/21/2023) indomethacin ER 75 mg CR capsule Take 1 capsule by mouth daily with breakfast. CYANOCOBALAMIN, VITAMIN B-12, (VITAMIN B-12 ORAL) Take by mouth. LABORATORY VALUES: Potassium (mmol/L) Date Value 09/28/2023 3.5 DIAGNOSIS: (C34.12) Malignant neoplasm of upper lobe of left lung (HCC) (primary encounter diagnosis) PAST MEDICAL HISTORY No date: Hypertension No date: Hypothyroidism 2023: Lung cancer (HCC) Comment: Flores Abdi 03/14/2012: Other affections of shoulder region, not elsewhere classified PAST SURGICAL HISTORY No date: APPENDECTOMY No date: BRAIN SURGERY HX No date: COLONSCOPY SCREENING HIGH RISK No date: FINGER AMPUTATION (SPECIFY DIGIT) HX No date: HAND SURGERY HX No date: HEMORROIDECTOMY INTERNAL No date: NECK SURGERY HX No date: REMV CATARACT EXTRACAP,INSERT LENS No date: SHOULDER ARTHROSCOPY/SURG No date: TYMPANOSTOMY GENERAL ANESTHESIA Social History Tobacco Use Smoking status: Former Current packs/day: 0.00 Average packs/day: 0.5 packs/day for 50.0 years (25.0 ttl pk-yrs) Types: Cigarettes Start date: 09/22/1973 Quit date: 09/23/2023 Years since quittin.0 Passive exposure: Current Smokeless tobacco: Never Vaping Use Vaping status: Former Substance Use Topics Alcohol use: No Drug use: No FAMILY HISTORY Problem Relation Age of Onset Stroke Mother Cancer Mother Heart disease Father Hypertension Father Stroke Paternal Grandmother I spent a total of 60 minutes on the date of the service which included preparing to see the patient, [id number] patient care, completing clinical documentation, obtaining and/or reviewing separately obtained history, performing a medically appropriate examination, counseling and educating the pat ient/family/caregiver, ordering medications, tests, or procedures, communicating with other HCPs (not separately reported), independently interpreting results (not separately reported), communicatingresults to the patient/family/caregiver, and care coordination (not separately reported). Lo Hancock MD, CPE H[facility]ology [facility] Oncology Services Provided at: [place], [place] Scribe Attestation: This note was scribed by Nieves Baker on October 21, 2023 under the direction and supervision of Dr. Lo Hancock. I attest that all of the information documented is correct to the best of my knowledge. Provider Attestation: I, Lo Hancock MD, attest that all information documented by the above scribe is correct, and was supervised by me and under my direction. CC: Gerald Abdi [address] [facility] [address] [place] [id number] Basia Vega MD [address] [facility] [id number] documented in this encounterSelect Medical [place] [facility] History of Present illness Narrative* Estefany Lang, - 10/20/2023 12:00 PM EDT Images from the original note were not included. [facility] Patient - Erin Pena Age - 67 y.[facility] 1955 [id number] Referring physician: Kassidy Villasenor CNP, Dr. Abdi Reason for Consultation: Possible EBUS, lung mass HPI: Erin Pena is a 67 y.o. male with history of hypertension, hypothyroidism, right ICA occlusion who presents as referred by Oncology given recent diagnosis of squamous cell lung carcinoma. Patient had recent hospitalization with abnormal chest x-ray which led to abnormal CT scan of the chest with large greater than 5 cm left upper lobe mass. Patient underwent CT- guided needle biopsy withRadiology and was found to have squamous cell carcinoma. There are evidence of satellite nodules surrounding the lung mass in question. PET-CT is ordered and scheduled. This is anticipated over the weekend. He has been referred for bronchoscopy with endobronchial ultrasound. PFT data has also been collected to evaluate for possible surgical candidacy. Denies any shortness of breath, cough, wheeze. He is retired. He previously worked at [employer]. He is an active smoker but actively working on quitting. He has been using the patches and lozenges. He was recently started after most recent hos pitalization on aspirin and Plavix for a right ICA occlusion however is confused because he was told that this would not necessarily help. He has had an albuterol inhaler in the past which he has used intermittently. He is not certain if it is . No hemoptysis, chest pain. ASSESSMENT MAXWELL Squamous cell carcinoma lung mass with satellite nodules Mild COPD -FEV1 1.9L/ DLCO 106 Tobacco use, actively quitting PLAN I have personally reviewed the patient's most recent chest imaging and interpreted it independently. These findings were discussed with the patient. PET-CT is pending Patient requires bronchoscopy with endobronchial ultrasound for lymph node survey given size of lesion greater than 3 cm. Anticipate that PET-CT will be done by a time EBUS will be performed and willbe able to pay special attention to any additional data that might be obtained on this imaging modality. Risks and benefits of bronchoscopy and endobronchial ultrasound reviewed Patient advised to start holding aspirin and Plavix tomorrow with tentative plans for bronchoscopy with endobronchial ultrasound for next Tuesday Recent pertinent labs and PFT data reviewed. Reviewed findings of airflow obstruction with bronchodilator response. Discussed the data is not overtly prohibitive for consideration of lobectomy but ultimately would require thoracic surgeon opinion. Refill provided of albuterol HFA for p.r.n. use Will trial Spiriva Respimat, 2.5 mcg. Patient given sample today in office and instructed on use. If no perceived benefit can discontinue and remain on albuterol HFA alone Education was provided regarding the patient's inhaler regimen and proper use reviewed. Understanding was demonstrated. Will see back in clinic in 4-5 months or earlier if needed. The patient was encouraged to call me with any concerns prior. Thank you for allowing me to participate in your patient's care. Past Medical History: Diagnosis Date Carpal tunnel syndrome Hyperlipidemia Hypertension Hypothyroidism Past Surgical History: Procedure Laterality Date APPENDECTOMY 1970 BELPHAROPTOSIS REPAIR BRAIN SURGERY 2015 CARDIAC CATHETERIZATION 2009 CATARACT EXTRACTION 2015 COLONOSCOPY 2016 FINGER AMPUTATION Left 1981 middle digit HAND SURGERY 2010 HEMORROIDECTOMY 1985 NECK SURGERY 1994 c4 fusion and 2001 c5/6 SHOULDER ARTHROSCOPY Left 2013 TYMPANOSTOMY TUBE PLACEMENT 2015 TYMPANOSTOMY TUBE PLACEMENT Left 2014 Sulfa (sulfonamide antibiotics) Prior to Admission medications Medication Sig Start Date End Date Taking? Authorizing Provider ascorbic acid (VITAMIN C) 500 mg tablet Take 1 tablet (500 mg total) by mouth in the morning. Not In System Ref Prov aspirin 81 mg Take 1 tablet (81 mg total) by mouth in the morning for 30 days. 09/30/23 10/30/23 SHANIQUA Wesley atorvastatin (LIPITOR) 40 mg tablet Take 1 tablet (40 mg total) by mouth in the morning. Not In System Ref Prov cetirizine (ZyrTEC) 10 mg tablet Take 1 tablet (10 mg total) by mouth in the morning. Not In SystemRef Prov cholecalciferol (VITAMIN D3) 1,000 units tablet Take 1 tablet (1,000 Units total) by mouth in the morning. Not In System Ref Prov clopidogreL (PLAVIX) 75 mg tablet Take 1 tablet (75 mg total) by mouth in the morning for 30 days. 09/30/23 10/30/23 SHANIQUA Wesley hydroCHLOROthiazide (HYDRODIURIL) 50 mg tablet Take 1 tablet (50 mg total) by mouth daily. Not In System Ref Prov HYDROcodone-acetaminophen (XODOL) 7.5-300 mg per tablet Take 1 tablet by mouth every 6 (six) hours as needed for pain. Not In System Ref Prov krill oil 500 mg capsule Take by mouth. Not In System Ref Prov losartan (COZAAR) 100 mg tablet Take 1 tablet (100 mg total) by mouth in the morning. Not In SystemRef Prov metFORMIN (GLUCOPHAGE) 850 mg tablet Take 1 tablet (850 mg total) by mouth Daily after lunch. 10/02/23 SHANIQUA Wesley multivit-minerals/ferrous fum (MULTI VITAMIN ORAL) Take by mouth. d3 100u and e 180 daily Not In System Ref Prov SYNTHROID 175 mcg tablet Take 1 tablet (175 mcg total) by mouth in the morning. 06/12/18 Not In System Ref Prov terazosin (HYTRIN) 1 mg capsule Take 1 capsule (1 mg total) by mouth nightly. Not In System Ref Prov vitamin E 100 units capsule Take 4 capsules (400 Units total) by mouth in the morning. 20 IU . Not In System Ref Prov reports that he quit smoking about 3 weeks ago. His smoking use included cigarettes. He started smoking about 50 years ago. He has a 37.9 pack-year smoking history. He has never used smokeless tobacco. He reports current alcohol use. He reports that he does not use drugs. Family History Problem Relation Age of Onset Stroke Mother Heart disease Father Hypertension Father Review of Systems: All 11 systems have been reviewed and are negative except as mentioned in History of Present Illness. Exam: General: Alert, oriented, no acute distress, nontoxic HEENT: Moist mucosal membranes, no oral lesions or oral thrush, trachea midline Chest: Clear to auscultation bilaterally without any crackles, wheezes, rhonchi. Normal AP diameter. CV: Regular rate regular rhythm Abdomen: Soft, nontender, no guard Extremities: No edema, erythema, distal cyanosis, clubbing Integumentary: Warm and dry. No rash or lesion Neuro: Cranial nerves 2-11 grossly intact. No lateralizing deficits. VITALS BP 132/73 Pulse 67 Ht 167.6 cm (5' 6 ) Wt 78.7 kg (173 lb 9.6 oz) SpO2 96% BMI 28.02 kg/m LAB Results: Surgical Pathology Consultation Amended Report Patient Name:ERIN PENA:1955 (Age: 67)Gender:MTaken:4Reported:10/11/2023hysician(s):Kassidy Villasenor CNP ([phone])Copy To:ODETTE BAPTISTE MDAession #:[id number]. Rec. #:[id number]: #[id number] Amended Final Pathologic Diagnosis Lung, left lower lobe, core biopsy: INVASIVE SQUAMOUS CELL CARCINOMA. Comment In order to classify the neoplasm, immunohistochemical staining is performed on 1B and demonstratesthat the tumor cells are diffusely positive for AE1/AE3 and p40, and negative for TTF-1 and Napsin A with adequate controls, supporting the above diagnosis. This amendment is to correct an error for tumor location. On the requisition form, the tumor location was left upper lobe. After the case was signed out, an oncology database security expert, Liliya Santana, notified me that the tumor should be located in left lower lobe. Report Electronically Signed Out rg/Romy Mendoza MD PFT Results: Radiology CT CHEST W CONT 09/28/23 CLINICAL INDICATION: Partially visualized lobulated left lower lobe pulmonary mass measuring up to 4.8 cm highly concerning for malignancy. on Ct carotid. COMPARISON STUDY: CTA carotid 09/27/2023. TECHNIQUE: CT was performed of the chest using 100 mL Omnipaque 300 intravenous contrast, without complication. Coronal & sagittal MPR images were generated and reviewed. FINDINGS: Heart & Pericardium Unremarkable cardiac morphology.. No significant pericardial effusion. Thoracic Aorta & Great Vessels: Normal in diameter. . Common trunk of the innominate artery andthe left common carotid, a normal variant. Pulmonary Arteries: Unremarkable. Lymph Nodes: No enlarged thoracic lymph nodes. Mediastinum & Esophagus: Unremarkable. Central Airway: Unremarkable. Lungs: Redemonstrated 3.9 x 5.2 cm lobulated mass of the superior segment left upper lobe. There isabutment and minimal protrusion through the major fissure (2/49). Adjacent satellite nodule posteroinferior border measures 1.4 x 1.0 cm (2/56). Internal gas may reflect aerogenous communication and necrosis. Pleura: No pleural effusion, thickening or pneumothorax. Lower Neck & Thyroid: Unremarkable. Visualized Upper Abdomen: Vicarious excretion of contrast through gallbladder.. Thoracic Spine & Chest Wall: No suspicious osseous lesion. IMPRESSION: 5.2 cm Left upper lobe mass with satellite nodule, concerning for malignancy. Focal necrotizing pneumonia felt less likely but could appear similarly in the appropriate clinical setting. Dr. Estefany Lang DO. [facility] Office: [phone] documented in this encounterN[facility] History of Present illness Narrative* Gerald Abdi MD - 10/13/2023 3:30 PM EDT Images from the original note were not included. [facility] 10/13/23 Erin Pena is a 67 y.o. year old male seen today in the oncology clinic. Chief Complaint Patient presents with New Patient History of Present Illness: Mr. Pena is a 67 y.o. male with history of peripheral vascular disease who presented with weakness over his left side and difficulty with speech September 2023. He was diagnosed with a TIA. During the workup a CT scan also revealed 5.2 cm Left upper lobe mass with satellite nodule, concerning for malignancy. He underwent IR guided biopsy, final path showed: INVASIVE SQUAMOUS CELL CARCINOMA. The patient denies significant cough no hemoptysis. No headaches or vision change. He is referred to Hematology/Oncology for further management. The patient has longstanding history of smoking and asbestos exposure. Past Medical History: Diagnosis Date Carpal tunnel syndrome Hyperlipidemia Hypertension Hypothyroidism Past Surgical History: Procedure Laterality Date APPENDECTOMY 1970 BELPHAROPTOSIS REPAIR BRAIN SURGERY 2015 CARDIAC CATHETERIZATION 2009 CATARACT EXTRACTION 2015 COLONOSCOPY 2016 FINGER AMPUTATION Left 1981 middle digit HAND SURGERY 2010 HEMORROIDECTOMY 1985 NECK SURGERY 1994 c4 fusion and 2001 c5/6 SHOULDER ARTHROSCOPY Left 2012 TYMPANOSTOMY TUBE PLACEMENT 2015 TYMPANOSTOMY TUBE PLACEMENT Left 2014 Family History Problem Relation Age of Onset Stroke Mother Heart disease Father Hypertension Father Social History Socioeconomic History Marital status: Tobacco Use Smoking status: Every Day Types: Cigarettes Smokeless tobacco: Never Substance and Sexual Activity Alcohol use: Yes Comment: moderate Drug use: Never Sexual activity: Defer Social Determinants of Health Financial Resource Strain: Low Risk (04/19/2023) Received from [facility] Overall Financial Resource Strain (CARDIA) Difficulty of Paying Living Expenses: Not hard at all Food Insecurity: No Food Insecurity (09/27/2023) Hunger Screening Food Insecurity - Worry: Never True Food Insecurity - Inability: Never True Transportation Needs: No Transportation Needs (09/27/2023) PRAPARE - Transportation Lack of Transportation (Medical): No Lack of Transportation (Non-Medical): No Physical Activity: Insufficiently Active (04/19/2023) Received from [facility] Exercise Vital Sign Days of Exercise per Week: 3 days Minutes of Exercise per Session: 30 min Stress: Patient Declined (04/19/2023) Received from [facility] [employer] - Occupational Stress Questionnaire Feeling of Stress : Patient declined Social Connections: Unknown (04/19/2023) Received from [facility] Social Connection and Isolation Panel [NHANES] Frequency of Communication with Friends and Family: Three times a week Frequency of Social Gatherings with Friends and Family: Once a week Attends [employer] Services: More than 4 times per year Active Member of Clubs or Organizations: Patient declined Attends Club or Organization Meetings: Patient declined Marital Status: Interpersonal Safety: Not At Risk (09/27/2023) Humiliation, Afraid, Rape, and Kick questionnaire Fear of Current or Ex-Partner: No Emotionally Abused: No Physically Abused: No Sexually Abused: No Housing Instability: Low Risk (09/27/2023) Housing Instability Housing Instability: No Allergies Allergen Reactions Sulfa (Sulfonamide Antibiotics) Medication List Accurate as of October 13, 2023 4:17 PM. If you have any questions, ask your nurse or doctor. Medications Continued This Visit ascorbic acid 500 mg tablet Refills: 0 Dose: 500 mg Commonly known as: VITAMIN C aspirin 81 mg Quantity: 30 tablet Refills: 0 Dose: 81 mg Signed by: SHANIQUA Davies 81 mg, oral, Daily atorvastatin 40 mg tablet Refills: 0 Dose: 40 mg Commonly known as: LIPITOR cetirizine 10 mg tablet Refills: 0 Dose: 10 mg Commonly known as: ZyrTEC cholecalciferol 1,000 units tablet Refills: 0 Dose: 1,000 Units Commonly known as: VITAMIN D3 clopidogreL 75 mg tablet Quantity: 30 tablet Refills: 0 Dose: 75 mg Signed by: SHANIQUA Davies 75 mg, oral, Daily Commonly known as: PLAVIX hydroCHLOROthiazide 50 mg tablet Refills: 0 Dose: 50 mg Commonly known as: HYDRODIURIL HYDROcodone-acetaminophen 7.5-300 mg per tablet Refills: 0 Dose: 1 tablet Commonly known as: XODOL krill oil 500 mg capsule Refills: 0 losartan 100 mg tablet Refills: 0 Dose: 100 mg Commonly known as: COZAAR metFORMIN 850 mg tablet Quantity: 60 tablet Refills: 0 Dose: 850 mg Signed by: SHANIQUA Davies 850 mg, oral, Daily after lunch Commonly known as: GLUCOPHAGE MULTI VITAMIN ORAL Refills: 0 SYNTHROID 175 mcg tablet Refills: 1 Dose: 175 mcg Generic drug: levothyroxine terazosin 1 mg capsule Refills: 0 Dose: 1 mg Commonly known as: HYTRIN vitamin E 100 units capsule Refills: 0 Dose: 400 Units Review of Symptoms: Review of Systems ECO- Symptomatic; fully ambulatory Physical Exam: General: Well appearing, in no acute distress. Vitals: BP 141/65 Pulse 71 Temp 36.8 C (98.2 F) (Oral) Resp 18 Ht 167.6 cm (5' 5.98 ) Wt 79.7 kg (175 lb 9.6 oz) SpO2 98% BMI 28.36 kg/m Body mass index is 28.36 kg/m . Eyes: No icterus, no conjuctival erythema ENT: Pharyngeal mucosa was moist without exudate and inflammation or ulcerations. Tongue was midline and appeared normal.Gums were unremarkable. Lymph nodes: No palpable adenopathy Neck: Supple. There were no masses, tenderness. Trachea was midline. Respiratory: Respirations were non-labored. Lungs were clear to auscultation. There was no dullnessto percussion. Cardiac: Regular rate and rhythm, S1 and S2 sounds were normal. There were no rubs or gallops. Abdomen: Soft, non-tender, Nondistended. Bowel sounds audible in all four quadrants. There were no palpable masses. The liver and spleen were not enlarged. Extremities: There was no clubbing, Cyanosis, edema. Skin: There was no obvious rashes, bruising or ecchymosis. Back exam: No palpable tenderness was appreciated. Neurologic: There was no unilateral weakness. Mood and affect: Normal. Recent Imaging: IR percutaneous biopsy lung left Result Date: 10/05/2023 Narrative: CLINICAL INDICATION: Left lower lobe lung mass COMPARISON: CT scan 09/28/2023 TECHNIQUE: Procedure performed by Interventional Radiologist Odette Baptiste M.D. All CT scans at this facility use dose modulation, iterative reconstruction, and/or weight based dosing when appropriate to reduce radiation dose to as low as reasonably achievable. CONSENT: The reason for the procedure was discussed with the patient. The procedure, expectations, risks, benefits, options and alternatives were discussed. All of the patient?s questions were answered. The patient understands that the results cannot be guaranteed. The procedure is indicated and the risks are acceptable. Consent was obtained. SEDAT ION: The patient?s cardiopulmonary status was evaluated and the patient is suitable for moderate sedation. During the course of the procedure, the patient was sedated with Fentanyl 100 mcg intravenously and Versed 1 mg intravenously, while being monitored with ECG, blood pressure monitoring, and pulse oximeter by appropriately trained personnel, for a total sedation time of 30 minutes. Following the procedure, the patient was recovered according to the moderate sedation policy. PROCEDURE: CT-guided core biopsy left lower lobe pulmonary mass Details of procedure: Patient placed in the prone position on the CT table. A CT scan of the chest was performed. An appropriate skin entry site was marked over the left lower lobe mass. The skin was prepped and draped in usual sterile fashion. 1% lidocaine without epinephrine was used as a local anesthetic. At that time, under CT guidance, a 17-gauge coaxial needle was advanced into the left lower lobe mass. Once needle position was confirmed, thestylette was removed and a total of 4 18-gauge core biopsy samples were obtained and placed in formalin. The needle was then removed and a sterile dressing applied. A final CT scan of the chest was performed. The patient tolerated the procedure well and there are no immediate complications. FINDINGS: 1. Redemonstration of partially cavitary mass at the superior segment left lower lobe measuring up to [address]-guided percutaneous needle access into the left lower lobe mass. A totalof 4 18-gauge core biopsy samples were obtained and placed in formalin. 3. CT of the chest postbiopsy demonstrates no evidence of immediate complication. No pneumothorax. IMPRESSION: Successful CT-guided core biopsy left lower lobe pulmonary mass. Finalized by Odette Baptiste MD on 10/05/2023 3:33 PM X-ray chest 1 view Result Date: 10/05/2023 Narrative: Single view chest History: Status post lung biopsy Comparison: X-ray 10/06/2011 Findings: Single portable view of the chest. Cardiomediastinal silhouette and pulmonary vasculature are withinnormal limits. Left upper lobe lung mass. Right lung is clear. No pneumothorax. Impression: Left upper lobe lung mass, no definite pneumothorax status post biopsy. Finalized by Enoc Chen on 10/05/2023 3:[address] angiogram abdominal aorta with runoff Result Date: 09/28/2023 Narrative: HISTORY: Claudication, leg ischemia; occlusive arterial disease TECHNIQUE: CT CTA ABD AORTA W RUNOFF COMPARISON: None Contiguous axial images are obtained of the abdomen and pelvis with contrast. Coronal and sagittal reconstructions were performed and reviewed. Sagittal and coronal reformatted images with 3-D Maximum intensity projection reconstructions constructed under concurrent physician supervision on a separate workstation. Automatic exposure control was utilized. All CT scans at this facility use dose modulation, iterative reconstruction, and/or weight based dosing when appropriate to reduce radiation dose to as low as reasonably achievable. FINDINGS: LUNG BASES: Lung bases clear. HEPATOBILIARY: Liver and gallbladder unremarkable. No biliary dilation. PANCREAS: Pancreas unremarkable. No pancreatic ductal dilation. SPLEEN: Unremarkable. ADRENAL GLANDS: Adrenal glands are unremarkable. KIDNEYS, URETERS, BLADDER: Right lower pole simple renal cyst requires no follow-up. Bilateral nonobstructing renal calculi measuring up to 6 mm on the left and 2 mm on the right. No collecting system dilation. Small left posterior bladder diverticulum. BOWEL: Small and large bowel are normal in caliber. LYMPH NODES: No enlarged lymph nodes. REPRODUCTIVE: Prostate mildly enlarged with central calcifications. MSK: Vertebral body heights and alignment maintained. Degenerative endplate changes L4-5. VASCULATURE: Abdominal aorta is nonaneurysmal. Dense aortoiliac calcifications arepresent. Celiacomesenteric trunk patent, anatomic variant. Inferior mesenteric artery patent. At least moderate stenosis of the left main renal artery. Right renal artery patent. Accessory superior left renal artery. Left marshall mortis. Right runoff: Atherosclerotic calcifications of the common, internal, and external iliac vessels, otherwise patent. Common femoral and profunda patent. Severe stenosis of the superficial femoral artery throughout its course in the thigh with likely multifocal long segment occlusion, detailed assessment compromised by extensive vascular calcifications. Popliteal artery patent. Can confirm three-vessel runoff to the right foot. Left runoff: Dense atherosclerotic calcifications of the common, internal, and external iliac vessels, otherwise patent. Common femor al and profunda patent. Severe stenosis and suspected occlusion of the distal superficial femoral artery, detailed assessment compromised by dense vascular calcifications short segment reconstitutionat the popliteal artery at the level of the knee joint. Severe stenosis and probable occlusion of the distal popliteal artery. Can confirm three-vessel runoff to the left foot. IMPRESSION: * Severelystenotic and likely occluded distal left superficial femoral and popliteal arteries. Three-vessel runoff to left foot. * Severe stenosis and likely multifocal long segment occlusion of the right superficial femoral artery. Three-vessel runoff to the right foot. * Moderate stenosis of the left renalartery. * Nonobstructing renal calculi. * Large amount stool in the colorectal junction suggestive of constipation. Approved by Resident Masoud Carreno DO on 09/28/2023 7:52 AM I, Clarence Jones MD havepersonally reviewed the image(s) and agree with and/or edited the report Finalized by Clarence Jones MD on 09/28/2023 2:13 PM Echo complete W/O contrast Result Date: 09/28/2023 Narrative: Left Ventricle: Left ventricle appears normal in size. Systolic function is normal with an ejection fraction of 55-60%. There is no diastolic dysfunction and normal left atrial pressure. Lateral E' is 9.79 cm/s. Medial E' is 8.49 cm/s. Average E' is 10.0 cm/s. CT chest with contrast Result Date: 09/28/2023 Narrative: CT CHEST W CONT CLINICAL INDICATION: Partially visualized lobulated left lower lobe pulmonary mass measuring up to 4.8 cm highly concerning for malignancy. on Ct carotid. COMPARISON STUDY:CTA carotid 09/27/2023. TECHNIQUE: CT was performed of the chest using 100 mL Omnipaque 300 intravenous contrast, without complication. Coronal & sagittal MPR images were generated and reviewed. FINDINGS: Heart & Pericardium Unremarkable cardiac morphology.. No significant pericardial effusion. Thoracic Aorta & Great Vessels: Normal in diameter. . Common trunk of the innominate artery and the left common carotid, a normal variant. Pulmonary Arteries: Unremarkable. Lymph Nodes: No enlarged thoracic lymph nodes. Mediastinum & Esophagus: Unremarkable. Central Airway: Unremarkable.Lungs: Redemonstrated 3.9 x 5.2 cm lobulated mass of the superior segment left upper lobe. There isabutment and minimal protrusion through the major fissure (2/49). Adjacent satellite nodule posteroinferior border measures 1.4 x 1.0 cm (2/56). Internal gas may reflect aerogenous communication and n ecrosis. Pleura: No pleural effusion, thickening or pneumothorax. Lower Neck & Thyroid: Unremarkable. Visualized Upper Abdomen: Vicarious excretion of contrast through gallbladder.. Thoracic Spine & Chest Wall: No suspicious osseous lesion. IMPRESSION: 5.2 cmLeft upper lobe mass with satellite nodule, concerning for malignancy. Focal necrotizing pneumonia f elt less likely but could appear similarly in the appropriate clinical setting. All CT scans at this facility use dose modulation, iterative reconstruction, and/or weight based dosing when appropriate to reduce radiation dose to as low as reasonably achievable. Workst ation:[id number] Finalized by Eh Lorenz on 09/28/2023 9:29 AM MR brain with and without contrast Result Date: 09/28/2023 Narrative: Indication: CVA neurologic deficit TECHNIQUE: Multiplanar multi sequential pre and postcontrast MR imaging of the head is performed and compared to prior exam dated 06/17/2018. 16 mL IV ProHance contrast medium was utilized. FINDINGS: Occlusion of intracranial right internal carotid artery was present previously. I have no report for the prior exam. There is normal flow-void seen withinleft intracranial internal carotid artery, basilar, and vertebral arteries. Paranasal sinuses appear clear. Fluid signal within medial left mastoid air cells unchanged. Ventricles are not dilated. There is no shift of midline structures. Orbital structures appear symmetric. FLAIR images show mild scattered periventricular white matter increased signal. These appear unchanged likely due to chronicsmall vessel ischemic change. Diffusion-weighted images show no abnormal restriction to suggest acute infarct. Small area of encephalomalacia within left temporal lobe unchanged. No abnormal parenchymal enhancement identified. Venous dural sinuses enhance normally. The pituitary gland is not enlarged. Cerebellar tonsils show a normal location. Gradient echo sequences show no definite intracranialblood products. IMPRESSION: 1. No acute intracranial findings. 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 Finalized by Altagracia Morse MD on 09/28/2023 9:[address] angiogram carotid Result Date: 09/27/2023 Narrative: INDICATION: Neuro deficit, acute, stroke suspected. COMPARISON: Carotid duplex 04/26/2022nd 11/16/2021. TECHNIQUE: CT images of the neck were obtained following the administration intravenous contrast. 3-D images were also post processed at a separate workstation to further define anatomy and potential pathology. All CT scans at this facility use dose modulation, iterative reconstruction, and/or weight based dosing when appropriate to reduce radiation dose to as low as reasonably achievable. FINDINGS: Moderate calcified plaque of the visualized thoracic aorta. Ectatic ascending aorta measuring up to 4.0 cm in diameter. Common origin of the right brachiocephalic and left common carotid artery, normal variation. Right subclavian and left subclavian arteries are patent. The vertebral arteries arise from the subclavian arteries with mild ostial stenosis on the left. Course and caliber of the bilateral cervical segment vertebral arteries is within normal limits. No high-grade focal stenosis, occlusion, or dissection. 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 There is reconstitution of the proximal right external carotid artery with no intraluminal contrast visualized within the right cervical segment internal carotid artery. Left common carotid artery is unremarkable. Calcified plaque of the left carotid bulb and proximal left ICA resulting in mild luminal narrowing (less than 50%)relative to the distal ICA diameter. Left external carotid artery is patent. Nonvascular findings: Punctate right parotid sialoliths. No enlarged cervical lymph nodes by size criteria. Partially visua lized 3.8 x 4.8 cm left lower lobe irregular mass with internal foci of gas and surrounding groundglass opacity. Multilevel degenerative changes of the cervical thoracic spine with C5-C6 intervertebral hardware. IMPRESSION: * Partially visualized lobulated left lower lobe pulmonary mass measuring up to 4.8 cm highly concerning for malignancy. Complete CT chest examination recommended for further evaluation. 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 * Mild (less than 50%) luminal narrowing of the proximal left internal carotid artery. This report contains a significant result and/or lisa mmendation, which requires the attention of the licensed caregiver responsible for this patient. Therefore, I specifically designated this report to be telephoned by the radiology department. Finalized by Kevon Ty MD on 09/27/2023 6:[address] angiogram head Result Date: 09/27/2023 Narrative: CT angiogram head with contrast History: Stroke. Neurologic deficit. Technique: CT angiogram of the head was performed following intravenous administration nonionic intravenous contrast. 3-D maximum intensity projection images generated and reviewed under concurrent physician supervision. Arterial blood flow was measured to assist the stroke clinical team in the diagnosis of large vessel occlusion in patients undergoing screening for acute ischemic stroke using Rapid AI software whenclinically indicated. Automated exposure control was utilized. All CT scans at this facility dose modulation, iterative reconstruction, and/or weight based dosing when appropriate to reduce radiation dose to as low as reasonably achievable. Findings: Intracranial internal carotid arteries: Completeocclusion of the right internal carotid artery. There is reconstitution of flow at the terminal segment, likely collateral flow via anterior and posterior communicating arteries. The left internal carotid artery is patent. Anterior cerebral arteries: Within normal limits. Middle cerebral arteries: Within normal limits. Posterior communicating arteries: Within normal limits. Intracranial vertebralarteries: Within normal limits. Basilar artery: Within normal limits. Posterior cerebral arteries: Within normal limits. No aneurysm. Impression: Occlusion of the right internal carotid artery. Thereis collateral opacification at the right ICA terminus intracranially likely via patent anterior andposterior communicating arteries. Otherwise no acute findings on CTA head. The finding of the occluded right common and internal carotid arteries was personally called to Dr. Monroy in the [facility] on 09/27/2023 at 5:50 PM. Finalized by Odette Baptiste MD on 09/27/2023 5:[address] brain without contrast stroke alert Result Date: 09/27/2023 Narrative: CT BRAIN WO CONT STROKE ALERT CLINICAL HISTORY: Neuro deficit, acute, stroke suspected COMPARISON: None. TECHNIQUE: CT head was performed without contrast using the standard protocol. Automated exposure control was utilized. FINDINGS: No acute, territorial region of diminished barger-whitedifferentiation. No acute intracranial hemorrhage. Encephalomalacia left inferior temporal lobe, immediately overlying the middle ear cavity/segment tympani [series 601 image #64]. No sign of ventricular outflow obstruction. Mild global parenchymal volume loss. Mild heterogeneity through the deep, periventricular white matter, most often seen in the setting of chronic microvascular ischemia. Intracranial vascular calcifications. Unremarkable temporal bone structures. Left craniotomy. Progressive pneumatization sphenoid sinus with prominent arachnoid granulations of the middle cranial fossa [right more so than left]. Unremarkable scalp soft tissues. IMPRESSION: 1. No definite acute intracranial abnormality, by CT. Brain MRI could assess for occult intracranial pathology. 2. Operative changes about left temporal region, repair of prior encephalocele. All CT scans at this facility use dosemodulation, iterative reconstruction, and/or weight based dosing when appropriate to reduce radiation dose to as low as reasonably achievable. Finalized by Campbell Parker MD on09/27/2023 5:14 PM Recent Labs: No results found for this or any previous visit (from the past 336 hour(s)). 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 His MRI is negative for malignancy. The patient's carotid duplex scan and CTA shows occlusion of the right carotid artery and minimal stenosis in the left carotid artery. According to vascular, this has been unchanged for many years. PET jesus to complete staging. PFT test If there is no evidence of distant metastasis, referral to thoracic surgery to consider resection. Patient will be a candidate for neoadjuvant chemotherapy based on tumor size. F/u in 4 weeks to finalize treatment plan. Thank you. Gerald Abdi MD Please note that portions of this note were generated using voice recognition [employer] dictation software. Although every effort was made to ensure the accuracy of this automated obiee report developer, some errors in obiee report developer may have occurred. CC: Patient Care Team: Dick Miranda MD as PCP - General (Family Medicine) Donald Ochoa MD as Surgeon (Vascular Surgery) PCP:DICK MIRANDA Referring MD: Kassidy Villasenor APRN* documented [facility] encounterN[facility] Instructions* Patient Instructions* Gerald Abdi MD - 10/13/2023 3:30 PM EDT PET jesus. PFT test Might need thoracic surgery referral. . F/u in 4 weeks. documented in this encounterN[facility] History of Present illness Narrative* Olegario Moreira MD - 10/03/2023 1:00 PM EDT Images from the original note were not included. [facility] [address] [id number] Subjective: Patient ID: Erin Pena is a 67 y.o. male. Chief Complaint Chief Complaint Patient presents with Follow-up CTA 09/25; had CVA 09/26, found mass on L lung, still having dizziness and headaches History of Present Illness: This is a 67 year old male who we are following for history of right carotid artery occlusion and occlusive arterial disease. The patient is here today to review results of CTA which was ordered for occlusive arterial disease. The patient reports he was recently in the hospital for stroke work-up. He was apparently confused,his speech was slurred, and he had weakness/tingling in the left leg. The patient had a CTA neck which confirmed occlusion of the right carotid artery and minimal disease in the left carotid artery. He had an MRI of the brain which showed no ischemic changes. He was started on Plavix in addition toPlavix by the stroke team. However, he was also found to have a large mass in the lung and is scheduled to have this biopsied next week so he has not started Plavix. His admits that he has not been taking his aspirin for a few months. The patient continues to report cramping pain in bilateral calf muscles. He is active in the yard but is not doing besides this for exercise. He could not tolerate Pletal so this was discontinued. Hedenies rest pain or tissue loss. He continues to smoke. 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) Hyporeflexia Other affections of shoulder region, not elsewhere classified Essential hypertension Hypothyroidism Hx of fusion of cervical spine Bilateral carotid artery stenosis Claudication (CMS-HCC) Occlusive disease, arterial Right internal carotid occlusion Left-sided weakness Lung mass Current Outpatient Medications: ascorbic acid (VITAMIN C) 500 mg tablet, Take 1 tablet (500 mg total) by mouth in the morning., Disp: , Rfl: aspirin 81 mg, Take 1 tablet (81 mg total) by mouth in the morning for 30 days., Disp: 30 tablet, Rfl: 0 atorvastatin (LIPITOR) 40 mg tablet, Take 1 tablet (40 mg total) by mouth in the morning., Disp: , Rfl: cetirizine (ZyrTEC) 10 mg tablet, Take 1 tablet (10 mg total) by mouth in the morning., Disp: , Rfl: cholecalciferol (VITAMIN D3) 1,000 units tablet, Take 1 tablet (1,000 Units total) by mouth in the morning., Disp: , Rfl: hydroCHLOROthiazide (HYDRODIURIL) 50 mg tablet, Take 1 tablet (50 mg total) by mouth daily., Disp: , Rfl: HYDROcodone-acetaminophen (XODOL) 7.5-300 mg per tablet, Take 1 tablet by mouth every 6 (six) hoursas needed for pain., Disp: , Rfl: krill oil 500 mg capsule, Take by mouth., Disp: , Rfl: losartan (COZAAR) 100 mg tablet, Take 1 tablet (100 mg total) by mouth in the morning., Disp: , Rfl: metFORMIN (GLUCOPHAGE) 850 mg tablet, Take 1 tablet (850 mg total) by mouth Daily after lunch., Disp: 60 tablet, Rfl: 0 multivit-minerals/ferrous fum (MULTI VITAMIN ORAL), Take by mouth. d3 100u and e 180 daily , Disp: , Rfl: SYNTHROID 175 mcg tablet, Take 1 tablet (175 mcg total) by mouth in the morning., Disp: , Rfl: 1 terazosin (HYTRIN) 1 mg capsule, Take 1 capsule (1 mg total) by mouth nightly., Disp: , Rfl: vitamin E 100 units capsule, Take 4 capsules (400 Units total) by mouth in the morning. 20 IU ., Disp: , Rfl: clopidogreL (PLAVIX) 75 mg tablet, Take 1 tablet (75 mg total) by mouth in the morning for 30 days.(Patient not taking: Reported on 10/03/2023), Disp: 30 tablet, Rfl: 0 The following portions of the patient's history were reviewed and updated as appropriate: allergies, current medications, past family history, past medical history, past social history, past surgicalhistory and problem list. Review of Systems: Review of Systems Constitutional: Negative. HENT: Negative. Eyes: Negative. Respiratory: Negative. Cardiovascular: Negative. Gastrointestinal: Negative. Endocrine: Negative. Genitourinary: Negative. Musculoskeletal: Negative. Skin: Negative. Allergic/Immunologic: Negative. Neurological: Negative. Hematological: Negative. Psychiatric/Behavioral: Negative. Objective: Vitals BP 140/68 Pulse 68 Physical Exam Physical Exam Vitals and nursing note reviewed. Constitutional: Appearance: He is well-developed. HENT: Head: Normocephalic and atraumatic. Nose: Nose normal. Mouth/Throat: Mouth: Mucous membranes are moist. Pharynx: Oropharynx is clear. Eyes: Conjunctiva/sclera: Conjunctivae normal. Cardiovascular: Rate and Rhythm: Normal rate and regular rhythm. Pulmonary: Effort: Pulmonary effort is normal. Abdominal: Palpations: Abdomen is soft. Musculoskeletal: General: Normal range of motion. Cervical back: Normal range of motion. Skin: General: Skin is warm and dry. Capillary Refill: Capillary refill takes less than 2 seconds. Neurological: Mental Status: He is alert and oriented to person, place, and time. Absent pedal pulses Studies Reviewed CTA aorta with runoff, CTA neck No results found for: DDIMER Lab Results Component Value Date GLU 119 (H) 09/29/2023 CALCIUM 8.6 09/29/2023 SODIUM 136 09/29/2023 K 3.5 09/29/2023 CO2 30 09/29/2023 BUN 10 09/29/2023 CREATININE 0.56 (L) 09/29/2023 Lab Results Component Value Date WBC 10.4 09/29/2023 HGB 12.3 (L) 09/29/2023 HCT 36.8 (L) 09/29/2023 MCV 87 09/29/2023 PLT 378 09/29/2023 Assesment: Erin was seen today for follow-up. Diagnoses and all orders for this visit: Occlusive disease, arterial Right internal carotid occlusion Bilateral carotid artery stenosis Plan: Plan The patient had several issues which were reviewed today TIA: The patient's carotid duplex scan and CTA shows occlusion of the right carotid artery and minimal stenosis in the left carotid artery. This has been unchanged for many years. I doubt this was the cause of his TIA as the vessel has been occluded since at least 2019 with little risk of embolization. I did encourage him to resume aspirin when able and then to start Plavix per Neurology recommendations. Occlusive arterial disease: The patient continues to note claudication in bilateral legs with ambulation. CT scan shows fairy long occlusion of bilateral SFA. Discussed treatment intervention including stent or bypass surgery, however would favor medical management for now as he does not have critical limb ischemia at this point. We did discuss that he needs to start an actual exercise regimen, something more than just walking around the yard. We discussed the importance of tobacco cessation. He is holding antiplatelet in anticipation of lung biopsy but will resume after his procedure. I willorder PVRs in six months and he will follow-up after testing. Return to the office in 6 months This note was created with the assistance of a speech recognition program. While intending to generate a timely document that accurately reflects the content of the visit, no guarantee can be provided that every grammatical or spelling mistake has been or will be identified or corrected. Thank you for your understanding. Olegario Moreira MD documented in this encounterUniversity Hospitals Conneaut Medical CenterCuurio [facility] [id number] History of Present illness Narrative* Olegario Moreira MD - 06/27/2023 9:45 AM EDT Images from the original note were not included. [facility] [address] [place] [id number] Subjective: Patient ID: Erin Pena is a 67 y.o. male. Chief Complaint No chief complaint on file. History of Present Illness: This is a 67 year old male who we are following for occlusive arterial disease. He is here today for routine follow-up and to review testing. He notes significant cramping pain in the calf muscles after walking about 1/4 mile,, states that it is interfering with his ability to take care of his property and to be active with his family. He states cramping pain improves with rest. He denies tissue loss or gangrene. He continues to smoke. He is compliant with aspirin. He does not walk for exercisebut is active around the house and property. He has known, chronic occlusion of the right ICA and minimal disease in the left carotid. No lateralizing weakness, amaurosis fugax, facial droop, slurredspeech. 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) Hyporeflexia Other affections of shoulder region, not elsewhere classified Essential hypertension Hypothyroidism Hx of fusion of cervical spine Bilateral carotid artery stenosis Claudication ([facility]) PAD (peripheral artery disease) ([facility]) Right internal carotid occlusion Current Outpatient Medications: ascorbic acid (VITAMIN C) 500 mg tablet, Take 1 tablet (500 mg total) by mouth in the morning., Disp: , Rfl: aspirin 81 mg, Take 1 tablet (81 mg total) by mouth in the morning. Takes two tablets daily ., Disp: , Rfl: cetirizine (ZyrTEC) 10 mg tablet, Take 1 tablet (10 mg total) by mouth in the morning., Disp: , Rfl: cholecalciferol (VITAMIN D3) 1,000 units tablet, Take 1 tablet (1,000 Units total) by mouth in the morning., Disp: , Rfl: cyclobenzaprine (FLEXERIL) 10 mg tablet, Take 1 tablet (10 mg total) by mouth 3 (three) times a day., Disp: , Rfl: gabapentin (NEURONTIN) 100 mg capsule, Week 1: one capsule po at night; Week 2: one capsule bid; Week 3: one capsule three time daily, and continue., Disp: 90 capsule, Rfl: 6 hydroCHLOROthiazide (HYDRODIURIL) 25 mg tablet, Take 1 tablet (25 mg total) by mouth daily., Disp: , Rfl: HYDROcodone-acetaminophen (NORCO) 5-325 mg per tablet, Take 1 tablet by mouth every 6 (six) hours as needed for pain., Disp: , Rfl: krill oil 500 mg capsule, Take by mouth., Disp: , Rfl: losartan-hydroCHLOROthiazide (HYZAAR) 100-25 mg per tablet, Take 1 tablet by mouth in the morning. Losartan 100mg hydrochlorithiazide 50mg takes daily ., Disp: , Rfl: metFORMIN (GLUCOPHAGE) 850 mg tablet, Take 1 tablet (850 mg total) by mouth Daily after lunch., Disp: , Rfl: multivit-minerals/ferrous fum (MULTI VITAMIN ORAL), Take by mouth. d3 100u and e 180 daily , Disp: , Rfl: SYNTHROID 175 mcg tablet, TAKE 1 TABLET BY MOUTH EVERY MORNING ON EMPTY STOMACH, Disp: , Rfl: 1 terazosin (HYTRIN) 1 mg capsule, Take 1 capsule (1 mg total) by mouth nightly., Disp: , Rfl: tiZANidine (ZANAFLEX) 4 mg tablet, Take 1.5 tablets (6 mg total) by mouth every 6 (six) hours as needed for muscle spasms., Disp: , Rfl: valsartan (DIOVAN) 160 mg tablet, Diovan CAPS Refills: 0 Active, Disp: , Rfl: vitamin E 100 units capsule, Take 20 Units by mouth in the morning. 20 IU ., Disp: , Rfl: atorvastatin (LIPITOR) 40 mg tablet, Take 1 tablet (40 mg total) by mouth in the morning. (Patient not taking: Reported on 06/27/2023), Disp: , Rfl: levothyroxine (SYNTHROID, LEVOTHROID) 100 MCG tablet, Synthroid 100 MCG Oral Tablet Refills: 0 Active (Patient not taking: Reported on 06/27/2023), Disp: , Rfl: loratadine (CLARITIN) 10 mg tablet, Take 10 mg by mouth daily. (Patient not taking: Reported on 10/27/2020), Disp: , Rfl: losartan (COZAAR) 50 mg tablet, Take 100 mg by mouth daily. (Patient not taking: Reported on 06/27/2023), Disp: , Rfl: methylphenidate HCl (RITALIN) 5 mg tablet, methylphenidate 5 mg tablet Take 1 tablet(s) in AM and at 1 PM by oral route. (Patient not taking: No sig reported), Disp: , Rfl: predniSONE (DELTASONE) 20 mg tablet, TAKE 1 TAB BY MOUTH 3X DAILY FOR 3 DAYS, 1 TAB TWICE DAILY FOR3 DAYS, 1 TAB DAILY FOR 3 DAYS (Patient not taking: No sig reported), Disp: , Rfl: rosuvastatin (CRESTOR) 10 mg tablet, Take 10 mg by mouth daily. (Patient not taking: Reported on 05/04/2021), Disp: , Rfl: rosuvastatin (CRESTOR) 40 mg tablet, Take 40 mg by mouth daily. (Patient not taking: Reported on 11/16/2021), Disp: , Rfl: rosuvastatin (CRESTOR) 5 mg tablet, Crestor TABS Refills: 0 Active (Patient not taking: Reported on11/16/2021), Disp: , Rfl: The following portions of the patient's history were reviewed and updated as appropriate: allergies, current medications, past family history, past medical history, past social history, past surgicalhistory and problem list. Review of Systems: Review of Systems Constitutional: Negative. HENT: Negative. Eyes: Negative. Respiratory: Negative. Cardiovascular: Negative. Gastrointestinal: Negative. Endocrine: Negative. Genitourinary: Negative. Musculoskeletal: Positive for gait problem. Skin: Negative. Negative for color change and wound. Allergic/Immunologic: Negative. Hematological: Negative. Psychiatric/Behavioral: Negative. Objective: Vitals BP 142/71 (BP Site: Right Arm, BP Postition: Sitting, BP CUFF SIZE: M (9-13 inches)) Pulse 71 Ht 170.2 cm (5' 7 ) Wt 81.6 kg (180 lb) Comment: per patient SpO2 96% BMI 28.19 kg/m Physical Exam Physical Exam Vitals and nursing note reviewed. Constitutional: Appearance: He is well-developed. HENT: Head: Normocephalic and atraumatic. Nose: Nose normal. Mouth/Throat: Mouth: Mucous membranes are moist. Pharynx: Oropharynx is clear. Eyes: Conjunctiva/sclera: Conjunctivae normal. Cardiovascular: Rate and Rhythm: Normal rate and regular rhythm. Pulmonary: Effort: Pulmonary effort is normal. Abdominal: Palpations: Abdomen is soft. Musculoskeletal: General: Normal range of motion. Cervical back: Normal range of motion. Right lower leg: No edema. Left lower leg: No edema. Skin: General: Skin is warm and dry. Capillary Refill: Capillary refill takes 2 to 3 seconds. Neurological: Mental Status: He is alert and oriented to person, place, and time. Absent pedal pulses. Feet are slightly cool to touch, viable, color intact with slightly delayed capillary refill. No ulcers or gangrene noted Studies Reviewed I reviewed carotid duplex scan and arterial dopplers No results found for: DDIMER Lab Results Component Value Date GLU 99 12/27/2014 CALCIUM 9.4 12/27/2014 SODIUM 140 12/27/2014 K 4.2 12/27/2014 CO2 32 (H) 12/27/2014 BUN 11 12/27/2014 CREATININE 0.69 12/27/2014 No results found for: WBC , HGB , HCT , MCV , PLT Assesment: Erin was seen today for bcas and peripheral artery disease. Diagnoses and all orders for this visit: Right internal carotid occlusion - cilostazoL (PLETAL) 100 mg tablet; Take 1 tablet (100 mg total) by mouth in the morning and 1 tablet (100 mg total) before bedtime. Occlusive disease, arterial - cilostazoL (PLETAL) 100 mg tablet; Take 1 tablet (100 mg total) by mouth in the morning and 1 tablet (100 mg total) before bedtime. - CT angiogram abdominal aorta with runoff; Future - Creatinine includes GFR, serum; Future Plan: Plan Carotid duplex scan shows stable right ICA occlusion and minimial disease in the left carotid artery. He is asymptomatic and we can continue regular surveillance testing for the carotids. Arterial Doppler studies show multilevel disease bilaterally with CARLI of 0.51 (right) and 0.46 (left). Patient reports claudication symptoms after about 1/4 mile, states it is difficult to take care of his [place] property and to walk while on vacation. Testing does show moderate arterial disease bilaterally. He does not have tissue loss or gangrene. I have prescribed Pletal and instructed him to walk regularly, goal of 20-30 minutes 4 days a week, advised him to walk until the muscles cramp and then try to walk more in order to build collateral flow and increase muscular endurance. I have alsoordered a CTA with runoff to check disease burden. He will return to the office in 3 months and if he does not have significant improvement in symptoms we can plan for angiogram with possible intervention. This note was created with the assistance of a speech recognition program. While intending to generate a timely document that accurately reflects the content of the visit, no guarantee can be provided that every grammatical or spelling mistake has been or will be identified or corrected. Thank you for your understanding. Olegario Moreira MD [facility] Miscellaneous Notes* Telephone Encounter - Leona Bernard MA - 11/15/2023 3:41 PM EDT Patient coming in Tuesday11/16/23 for follow up treatment. Please add lab orders. Thanks. Leona Bernard MA [facility] History of Present illness Narrative* Dick Miranda MD - 04/20/2023 12:13 PM ESTAssociated Problem(s): Hypothyroidism, postradioiodine therapy (CMS/HCC) Medication adjusted and repeat labs next month. * Dick Miranda MD - 04/20/2023 12:13 PM ESTAssociated Problem(s): PAD (peripheral artery disease) (CMS/HCC) Symptoms stable and follow up with vascular. * Dick Miranda MD - 04/20/2023 12:13 PM ESTAssociated Problem(s): Essential hypertension (CMS/HCC) BP controlled and monitor PRN. * Dick Miranda MD - 04/20/2023 12:12 PM ESTAssociated Problem(s): Degenerative lumbar spinal stenosis Pain stable and use norco PRN. Increase activity and walk regularly. * Dick Miranda MD - 04/20/2023 12:12 PM ESTAssociated Problem(s): DDD (degenerative disc disease), cervical Pain stable and use norco PRN. Increase activity and walk regularly. * Dick Miranda MD - 04/20/2023 12:12 PM ESTAssociated Problem(s): Benign prostatic hyperplasia with lower urinary tract symptoms Occasional symptoms but tolerable and continue terazosin. * Dick Miranda MD - 04/20/2023 11:30 AM EST Subjective Patient ID: Erin Saturnino Pena is a 67 y.o. male who presents for Follow-up (New patient). New patient to establish care and changing PCPs. Patient feels well today. Checking BP PRN and typically controlled. BP normal today. Taking medication daily and tolerating without side effects. 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 Prior surgeries on both. Pain in base neck and top shoulders.No radiation into arms or hands. Pain in low back and across top hips. No radiation into gluteal region or down legs. Pain increased with walking, bending, and standing. Using norco PRN and pain tolerable. BPH stable with terazosin. Weak stream and occasional straining to start flow of urine. Not up as much during night. At times feels like not empty all the way and occasional dribbling. History of PVD with bilateral carotid stenosis and stenosis in legs. Follows with vascular and monitored. Labs drawn last month and synthroid increased. Review of Systems Constitutional: Negative for fatigue. Respiratory: Negative for cough, shortness of breath and wheezing. Cardiovascular: Negative for chest pain and palpitations. Gastrointestinal: Negative for abdominal pain, diarrhea, nausea and vomiting. Genitourinary: Negative for dysuria. Objective Physical Exam Constitutional: General: He is not in acute distress. Appearance: Normal appearance. HENT: Head: Normocephalic. Right Ear: Tympanic membrane and ear canal normal. Left Ear: Tympanic membrane and ear canal normal. Eyes: Extraocular Movements: Extraocular movements intact. Pupils: Pupils are equal, round, and reactive to light. Cardiovascular: Rate and Rhythm: Normal rate and regular rhythm. Heart sounds: No murmur heard. No friction rub. No gallop. Pulmonary: Breath sounds: Normal breath sounds. No wheezing, rhonchi or rales. Abdominal: General: Bowel sounds are normal. There is no distension. Palpations: Abdomen is soft. Tenderness: There is no abdominal tenderness. There is no guarding or rebound. Musculoskeletal: Left lower leg: No edema. Neurological: Mental Status: He is alert. Assessment/Plan Problem List Items Addressed This Visit Essential hypertension (CMS/HCC) - Primary BP controlled and monitor PRN. Hypothyroidism, postradioiodine therapy (CMS/HCC) Medication adjusted and repeat labs next month. Relevant Orders TSH T3, free T4, free PAD (peripheral artery disease) (CMS/HCC) Symptoms stable and follow up with vascular. Benign prostatic hyperplasia with lower urinary tract symptoms Occasional symptoms but tolerable and continue terazosin. Degenerative lumbar spinal stenosis Pain stable and use norco PRN. Increase activity and walk regularly. DDD (degenerative disc disease), cervical Pain stable and use norco PRN. Increase activity and walk regularly. [facility]* Diagnosis Essential hypertension (CMS/HCC)- Primary Unspecified essential hypertension Degenerative lumbar spinal stenosis Spinal stenosis of lumbar region DDD (degenerative disc disease), cervical Degeneration of cervical intervertebral disc Benign prostatic hyperplasia with urinary hesitancy PAD (peripheral artery disease) (CMS/HCC) Unspecified peripheral vascular disease Hypothyroidism, postradioiodine therapy (CMS/HCC) [facility]* Diagnosis Malignant neoplasm of upper lobe of left lung (HCC)- Primary [facility]* Diagnosis Lung nodule- Primary Solitary pulmonary nodule Lung nodule Solitary pulmonary nodule documented in this encounter [facility] note* Diagnosis Malignant neoplasm of upper lobe of left lung (HCC)- Primary Lung nodule Solitary pulmonary nodule documented in this encounter [facility] note* Diagnosis Pre-op exam- Primary Preoperative examination, unspecified Lung nodule Solitary pulmonary nodule Lung nodule Solitary pulmonary nodule documented in this encounter [facility]* Diagnosis Pre-op evaluation- Primary Preoperative examination, unspecified Chronic obstructive pulmonary disease, unspecified COPD type (HCC) Cigarette smoker Tobacco use disorder Hypothyroidism, postradioiodine therapy Other postablative hypothyroidism TIA (transient ischemic attack) Unspecified transient cerebral ischemia KIKO (generalized anxiety disorder) Generalized anxiety disorder Essential hypertension Unspecified essential hypertension Mixed hyperlipidemia PAD (peripheral artery disease) (HCC) Peripheral vascular disease, unspecified Chronic pain syndrome Prediabetes Other abnormal glucose History of craniotomy Other postprocedural status Lung nodule Solitary pulmonary nodule * Assessment & Plan Note - Dana Crowe APRN.CNP - 10/26/2023 3:11 PM EDT Associated Problem(s): History of craniotomy Assessment: CSF leak * Assessment & Plan Note - Dana Crowe APRN.CNP - 10/26/2023 2:59 PM EDT Associated Problem(s): Prediabetes Assessment: On metformin * Assessment & Plan Note - Dana Crowe APRN.CNP - 10/26/2023 2:56 PM EDT Associated Problem(s): Chronic pain syndrome Assessment: Managed with hydrocodone, takes 1-2 per day. * Assessment & Plan Note - Dana Crowe APRN.CNP - 10/26/2023 2:54 PM EDT Associated Problem(s): PAD (peripheral artery disease) (HCC) Assessment: Known blockage - on baby ASA - following with vascular surgery * Assessment & Plan Note - Dana Crowe APRN.CNP - 10/26/2023 2:40 PM EDT Associated Problem(s): Mixed hyperlipidemia Assessment: Controlled with statin. Monitored per PCP. * Assessment & Plan Note - Dana Crowe APRN.CNP - 10/26/2023 2:40 PM EDT Associated Problem(s): Essential hypertension Assessment: Stable and compliant with medications Followed by PCP Last 5 Encounter BP Readings: Date: BP: 10/26/2023 136/74 10/21/2023 136/72 02/16/2012 147/76 10/15/2011 144/80 * Assessment & Plan Note - Dana Crowe APRN.CNP - 10/26/2023 2:39 PM EDT Associated Problem(s): KIKO (generalized anxiety disorder) Assessment: Using PRN valium * Assessment & Plan Note - Dana Crowe APRN.CNP - 10/26/2023 2:38 PM EDT Associated Problem(s): TIA (transient ischemic attack) Assessment: Recent TIA secondary to Right ICA occlusion - started on ASA and Plavix with a statin. Currently holding ASA and Plavix as directed by outside physician * Assessment & Plan Note - Dana Crowe APRN.CNP - 10/26/2023 2:35 PM EDT Associated Problem(s): Hypothyroidism, postradioiodine therapy Assessment: Stable on Levothyroxine (Synthroid) * Assessment & Plan Note - Dana Crowe APRN.CNP - 10/26/2023 2:35 PM EDT Associated Problem(s): Cigarette smoker Assessment: Recently quit - 4 weeks ago (09/2023) using nicotine patches * Assessment & Plan Note - Dana Crowe APRN.CNP - 10/26/2023 2:34 PM EDT Associated Problem(s): Chronic obstructive pulmonary disease (HCC) Assessment: Stable, mild per last Pulm office visit: Mild COPD -FEV1 1.9L/ DLCO 106 documented [facility] this encounter [facility]* Diagnosis Pre-op evaluation- Primary Preoperative examination, unspecified Chronic obstructive pulmonary disease, unspecified COPD type (HCC) Cigarette smoker Tobacco use disorder Hypothyroidism, postradioiodine therapy Other postablative hypothyroidism TIA (transient ischemic attack) Unspecified transient cerebral ischemia KIKO (generalized anxiety disorder) Generalized anxiety disorder Essential hypertension Unspecified essential hypertension Mixed hyperlipidemia PAD (peripheral artery disease) (HCC) Peripheral vascular disease, unspecified Chronic pain syndrome Prediabetes Other abnormal glucose History of craniotomy Other postprocedural status Lung mass- Primary Swelling, mass, or lump in chest Chronic obstructive pulmonary disease, unspecified COPD type (HCC) Chest pain, unspecified type Hypertension, unspecified type Hx of neck surgery Personal history of surgery to other organs TIA (transient ischemic attack) Unspecified transient cerebral ischemia Other chronic pain Former smoker Personal history of tobacco use, presenting hazards to health PAD (peripheral artery disease) (HCC) Peripheral vascular disease, unspecified [facility] Diagnosis Pre-op evaluation- Primary Preoperative examination, unspecified Chronic obstructive pulmonary disease, unspecified COPD type (HCC) Cigarette smoker Tobacco use disorder Hypothyroidism, postradioiodine therapy Other postablative hypothyroidism TIA (transient ischemic attack) Unspecified transient cerebral ischemia KIKO (generalized anxiety disorder) Generalized anxiety disorder Essential hypertension Unspecified essential hypertension Mixed hyperlipidemia PAD (peripheral artery disease) (HCC) Peripheral vascular disease, unspecified Chronic pain syndrome Prediabetes Other abnormal glucose History of craniotomy Other postprocedural status Malignant neoplasm of upper lobe of left lung (HCC)- Primary documented in this encounter [facility] note* Diagnosis Pre-op evaluation- Primary Preoperative examination, unspecified Chronic obstructive pulmonary disease, unspecified COPD type (HCC) Cigarette smoker Tobacco use disorder Hypothyroidism, postradioiodine therapy Other postablative hypothyroidism TIA (transient ischemic attack) Unspecified transient cerebral ischemia KIKO (generalized anxiety disorder) Generalized anxiety disorder Essential hypertension Unspecified essential hypertension Mixed hyperlipidemia PAD (peripheral artery disease) (HCC) Peripheral vascular disease, unspecified Chronic pain syndrome Prediabetes Other abnormal glucose History of craniotomy Other postprocedural status Primary malignant neoplasm of bronchus of left upper lobe (HCC)- Primary Malignant neoplasm of upper lobe, bronchus or lung [facility]* Diagnosis Pre-op evaluation- Primary Preoperative examination, unspecified Chronic obstructive pulmonary disease, unspecified COPD type (HCC) Cigarette smoker Tobacco use disorder Hypothyroidism, postradioiodine therapy Other postablative hypothyroidism TIA (transient ischemic attack) Unspecified transient cerebral ischemia KIKO (generalized anxiety disorder) Generalized anxiety disorder Essential hypertension Unspecified essential hypertension Mixed hyperlipidemia PAD (peripheral artery disease) (HCC) Peripheral vascular disease, unspecified Chronic pain syndrome Prediabetes Other abnormal glucose History of craniotomy Other postprocedural status Primary malignant neoplasm of bronchus of left upper lobe (HCC)- Primary Malignant neoplasm of upper lobe, bronchus or lung [facility]* Diagnosis Pre-op evaluation- Primary Preoperative examination, unspecified Chronic obstructive pulmonary disease, unspecified COPD type (HCC) Cigarette smoker Tobacco use disorder Hypothyroidism, postradioiodine therapy Other postablative hypothyroidism TIA (transient ischemic attack) Unspecified transient cerebral ischemia KIKO (generalized anxiety disorder) Generalized anxiety disorder Essential hypertension Unspecified essential hypertension Mixed hyperlipidemia PAD (peripheral artery disease) (HCC) Peripheral vascular disease, unspecified Chronic pain syndrome Prediabetes Other abnormal glucose History of craniotomy Other postprocedural status Malignant neoplasm of upper lobe of left lung (HCC)- Primary Immunotherapy Abnormal blood chemistry Other abnormal blood chemistry Malaise and fatigue Other malaise and fatigue documented in this encounter [facility] note* Diagnosis Pre-op evaluation- Primary Preoperative examination, unspecified Chronic obstructive pulmonary disease, unspecified COPD type (HCC) Cigarette smoker Tobacco use disorder Hypothyroidism, postradioiodine therapy Other postablative hypothyroidism TIA (transient ischemic attack) Unspecified transient cerebral ischemia KIKO (generalized anxiety disorder) Generalized anxiety disorder Essential hypertension Unspecified essential hypertension Mixed hyperlipidemia PAD (peripheral artery disease) (HCC) Peripheral vascular disease, unspecified Chronic pain syndrome Prediabetes Other abnormal glucose History of craniotomy Other postprocedural status Malignant neoplasm of upper lobe of left lung (HCC)- Primary documented in this encounter [facility] note* Diagnosis Pre-op evaluation- Primary Preoperative examination, unspecified Chronic obstructive pulmonary disease, unspecified COPD type (HCC) Cigarette smoker Tobacco use disorder Hypothyroidism, postradioiodine therapy Other postablative hypothyroidism TIA (transient ischemic attack) Unspecified transient cerebral ischemia KIKO (generalized anxiety disorder) Generalized anxiety disorder Essential hypertension Unspecified essential hypertension Mixed hyperlipidemia PAD (peripheral artery disease) (HCC) Peripheral vascular disease, unspecified Chronic pain syndrome Prediabetes Other abnormal glucose History of craniotomy Other postprocedural status Malignant neoplasm of upper lobe of left lung (HCC)- Primary [facility]* Diagnosis Pre-op evaluation- Primary Preoperative examination, unspecified Chronic obstructive pulmonary disease, unspecified COPD type (HCC) Cigarette smoker Tobacco use disorder Hypothyroidism, postradioiodine therapy Other postablative hypothyroidism TIA (transient ischemic attack) Unspecified transient cerebral ischemia KIKO (generalized anxiety disorder) Generalized anxiety disorder Essential hypertension Unspecified essential hypertension Mixed hyperlipidemia PAD (peripheral artery disease) (HCC) Peripheral vascular disease, unspecified Chronic pain syndrome Prediabetes Other abnormal glucose History of craniotomy Other postprocedural status Malignant neoplasm of upper lobe of left lung (HCC)- Primary [facility]* Diagnosis Pre-op evaluation- Primary Preoperative examination, unspecified Chronic obstructive pulmonary disease, unspecified COPD type (HCC) Cigarette smoker Tobacco use disorder Hypothyroidism, postradioiodine therapy Other postablative hypothyroidism TIA (transient ischemic attack) Unspecified transient cerebral ischemia KIKO (generalized anxiety disorder) Generalized anxiety disorder Essential hypertension Unspecified essential hypertension Mixed hyperlipidemia PAD (peripheral artery disease) (HCC) Peripheral vascular disease, unspecified Chronic pain syndrome Prediabetes Other abnormal glucose History of craniotomy Other postprocedural status 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, bronchus, and lung (HCC) Malignant neoplasm of other parts of bronchus or lung Malignant neoplasm of upper lobe of left lung (HCC) [facility]* Diagnosis Pre-op evaluation- Primary Preoperative examination, unspecified Chronic obstructive pulmonary disease, unspecified COPD type (HCC) Cigarette smoker Tobacco use disorder Hypothyroidism, postradioiodine therapy Other postablative hypothyroidism TIA (transient ischemic attack) Unspecified transient cerebral ischemia KIKO (generalized anxiety disorder) Generalized anxiety disorder Essential hypertension Unspecified essential hypertension Mixed hyperlipidemia PAD (peripheral artery disease) (HCC) Peripheral vascular disease, unspecified Chronic pain syndrome Prediabetes Other abnormal glucose History of craniotomy Other postprocedural status Malignant neoplasm of upper lobe of left lung (HCC)- Primary [facility]* Diagnosis Pre-op evaluation- Primary Preoperative examination, unspecified Chronic obstructive pulmonary disease, unspecified COPD type (HCC) Cigarette smoker Tobacco use disorder Hypothyroidism, postradioiodine therapy Other postablative hypothyroidism TIA (transient ischemic attack) Unspecified transient cerebral ischemia KIKO (generalized anxiety disorder) Generalized anxiety disorder Essential hypertension Unspecified essential hypertension Mixed hyperlipidemia PAD (peripheral artery disease) (HCC) Peripheral vascular disease, unspecified Chronic pain syndrome Prediabetes Other abnormal glucose History of craniotomy Other postprocedural status Malignant neoplasm of upper lobe of left lung (HCC)- Primary Immunotherapy [facility] Diagnosis Essential hypertension (CMS/HCC)- Primary Unspecified essential hypertension Degenerative lumbar spinal stenosis Spinal stenosis of lumbar region DDD (degenerative disc disease), cervical Degeneration of cervical intervertebral disc Benign prostatic hyperplasia with urinary hesitancy PAD (peripheral artery disease) (CMS/HCC) Unspecified peripheral vascular disease Hypothyroidism, postradioiodine therapy (CMS/HCC) Trochanteric bursitis of right hip- Primary TIA (transient ischemic attack)- Primary Unspecified transient cerebral ischemia 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) KIKO (generalized anxiety disorder) (CMS/HCC) Generalized anxiety disorder Unsteady Abnormality of gait DDD (degenerative disc disease), cervical Degeneration of cervical intervertebral disc [facility] Diagnosis Pre-op evaluation- Primary Preoperative examination, unspecified Chronic obstructive pulmonary disease, unspecified COPD type (HCC) Cigarette smoker Tobacco use disorder Hypothyroidism, postradioiodine therapy Other postablative hypothyroidism TIA (transient ischemic attack) Unspecified transient cerebral ischemia KIKO (generalized anxiety disorder) Generalized anxiety disorder Essential hypertension Unspecified essential hypertension Mixed hyperlipidemia PAD (peripheral artery disease) (HCC) Peripheral vascular disease, unspecified Chronic pain syndrome Prediabetes Other abnormal glucose History of craniotomy Other postprocedural status Palliative care by specialist- Primary Cancer of trachea, bronchus, and lung (HCC) Malignant neoplasm of other parts of bronchus or lung Malignant neoplasm of upper lobe of left lung (HCC) Paraneoplastic neuropathy (HCC) Other malignant neoplasm without specification of site Nausea Nausea alone 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 condition 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 condition classified elsewhere Anxiety Anxiety state, unspecified [facility] Diagnosis Pre-op evaluation- Primary Preoperative examination, unspecified Chronic obstructive pulmonary disease, unspecified COPD type (HCC) Cigarette smoker Tobacco use disorder Hypothyroidism, postradioiodine therapy Other postablative hypothyroidism TIA (transient ischemic attack) Unspecified transient cerebral ischemia KIKO (generalized anxiety disorder) Generalized anxiety disorder Essential hypertension Unspecified essential hypertension Mixed hyperlipidemia PAD (peripheral artery disease) (HCC) Peripheral vascular disease, unspecified Chronic pain syndrome Prediabetes Other abnormal glucose History of craniotomy Other postprocedural status Malignant neoplasm of upper lobe of left lung (HCC)- Primary [facility] Diagnosis Pre-op evaluation- Primary Preoperative examination, unspecified Chronic obstructive pulmonary disease, unspecified COPD type (HCC) Cigarette smoker Tobacco use disorder Hypothyroidism, postradioiodine therapy Other postablative hypothyroidism TIA (transient ischemic attack) Unspecified transient cerebral ischemia KIKO (generalized anxiety disorder) Generalized anxiety disorder Essential hypertension Unspecified essential hypertension Mixed hyperlipidemia PAD (peripheral artery disease) (HCC) Peripheral vascular disease, unspecified Chronic pain syndrome Prediabetes Other abnormal glucose History of craniotomy Other postprocedural status Malignant neoplasm of upper lobe of left lung (HCC)- Primary Malaise and fatigue Other malaise and fatigue Attention deficit hyperactivity disorder (ADHD), combined type Malignant neoplasm of lung, unspecified laterality, unspecified part of lung (HCC) [facility]* Diagnosis Pre-op evaluation- Primary Preoperative examination, unspecified Chronic obstructive pulmonary disease, unspecified COPD type (HCC) Cigarette smoker Tobacco use disorder Hypothyroidism, postradioiodine therapy Other postablative hypothyroidism TIA (transient ischemic attack) Unspecified transient cerebral ischemia KIKO (generalized anxiety disorder) Generalized anxiety disorder Essential hypertension Unspecified essential hypertension Mixed hyperlipidemia PAD (peripheral artery disease) (HCC) Peripheral vascular disease, unspecified Chronic pain syndrome Prediabetes Other abnormal glucose History of craniotomy Other postprocedural status Malignant neoplasm of upper lobe of left lung (HCC)- Primary [facility] Diagnosis Essential hypertension (CMS/HCC)- Primary Unspecified essential hypertension Degenerative lumbar spinal stenosis Spinal stenosis of lumbar region DDD (degenerative disc disease), cervical Degeneration of cervical intervertebral disc Benign prostatic hyperplasia with urinary hesitancy PAD (peripheral artery disease) (CMS/HCC) Unspecified peripheral vascular disease Hypothyroidism, postradioiodine therapy (CMS/HCC) Trochanteric bursitis of right hip- Primary TIA (transient ischemic attack)- Primary Unspecified transient cerebral ischemia 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) KIKO (generalized anxiety disorder) (CMS/HCC) Generalized anxiety disorder Unsteady Abnormality of gait 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)- Primary PAD (peripheral artery disease) (CMS/HCC) Unspecified peripheral vascular disease Chemotherapy-induced neuropathy (CMS/HCC) Primary insomnia Persistent disorder of initiating or maintaining sleep documented in this encounter [facility]* Diagnosis Essential hypertension (CMS/HCC)- Primary Unspecified essential hypertension Degenerative lumbar spinal stenosis Spinal stenosis of lumbar region DDD (degenerative disc disease), cervical Degeneration of cervical intervertebral disc Benign prostatic hyperplasia with urinary hesitancy PAD (peripheral artery disease) (CMS/HCC) Unspecified peripheral vascular disease Hypothyroidism, postradioiodine therapy (CMS/HCC) Trochanteric bursitis of right hip- Primary TIA (transient ischemic attack)- Primary Unspecified transient cerebral ischemia 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) KIKO (generalized anxiety disorder) ([facility]) Generalized anxiety disorder Unsteady Abnormality of gait 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)- Primary PAD (peripheral artery disease) (CMS/HCC) Unspecified peripheral vascular disease Chemotherapy-induced neuropathy ([facility]/HCC) Primary insomnia Persistent disorder of initiating or maintaining sleep Right hip pain- Primary Pain in joint, pelvic region and thigh Trochanteric bursitis of right hip Tear of right gluteus minimus tendon, subsequent encounter documented in this encounter [facility]* Diagnosis Essential hypertension (CMS/HCC)- Primary Unspecified essential hypertension Degenerative lumbar spinal stenosis Spinal stenosis of lumbar region DDD (degenerative disc disease), cervical Degeneration of cervical intervertebral disc Benign prostatic hyperplasia with urinary hesitancy PAD (peripheral artery disease) (CMS/HCC) Unspecified peripheral vascular disease Hypothyroidism, postradioiodine therapy (CMS/HCC) Trochanteric bursitis of right hip- Primary TIA (transient ischemic attack)- Primary Unspecified transient cerebral ischemia 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) KIKO (generalized anxiety disorder) ([facility]) Generalized anxiety disorder Unsteady Abnormality of gait 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)- Primary PAD (peripheral artery disease) ([facility]/HCC) Unspecified peripheral vascular disease Chemotherapy-induced neuropathy ([facility]/HCC) Primary insomnia Persistent disorder of initiating or maintaining sleep Essential hypertension ([facility]/HCC)- Primary Unspecified essential hypertension Chemotherapy-induced neuropathy ([facility]/HCC) Chronic obstructive pulmonary disease, unspecified COPD type ([facility]) Encounter for long-term (current) use of medications Encounter for long-term (current) use of other medications PAD (peripheral artery disease) (CMS/HCC) Unspecified peripheral vascular disease DDD (degenerative disc disease), cervical Degeneration of cervical intervertebral disc Hypothyroidism, postradioiodine therapy (CMS/HCC) documented in this encounter [facility]* Diagnosis Pre-op evaluation- Primary Preoperative examination, unspecified Chronic obstructive pulmonary disease, unspecified COPD type (HCC) Cigarette smoker Tobacco use disorder Hypothyroidism, postradioiodine therapy Other postablative hypothyroidism TIA (transient ischemic attack) Unspecified transient cerebral ischemia KIKO (generalized anxiety disorder) Generalized anxiety disorder Essential hypertension Unspecified essential hypertension Mixed hyperlipidemia PAD (peripheral artery disease) (HCC) Peripheral vascular disease, unspecified Chronic pain syndrome Prediabetes Other abnormal glucose History of craniotomy Other postprocedural status Malignant neoplasm of lung, unspecified laterality, unspecified part of lung (HCC) Malignant neoplasm of upper lobe of left lung (HCC) Immunotherapy Abnormal blood chemistry Other abnormal blood chemistry Malaise and fatigue Other malaise and fatigue [facility] Diagnosis Pre-op evaluation- Primary Preoperative examination, unspecified Chronic obstructive pulmonary disease, unspecified COPD type (HCC) Cigarette smoker Tobacco use disorder Hypothyroidism, postradioiodine therapy Other postablative hypothyroidism TIA (transient ischemic attack) Unspecified transient cerebral ischemia KIKO (generalized anxiety disorder) Generalized anxiety disorder Essential hypertension Unspecified essential hypertension Mixed hyperlipidemia PAD (peripheral artery disease) (HCC) Peripheral vascular disease, unspecified Chronic pain syndrome Prediabetes Other abnormal glucose History of craniotomy Other postprocedural status Encounter for preoperative vascular examination- Primary Other specified pre-operative examination Malignant neoplasm of upper lobe of left lung (HCC) Preoperative cardiovascular examination Pre-operative cardiovascular examination Preoperative testing Preoperative examination, unspecified [facility] Diagnosis DDD (degenerative disc disease), cervical Degeneration of cervical intervertebral disc documented in this encounter [facility]* Diagnosis Pre-op evaluation- Primary Preoperative examination, unspecified Chronic obstructive pulmonary disease, unspecified COPD type (HCC) Cigarette smoker Tobacco use disorder Hypothyroidism, postradioiodine therapy Other postablative hypothyroidism TIA (transient ischemic attack) Unspecified transient cerebral ischemia KIKO (generalized anxiety disorder) Generalized anxiety disorder Essential hypertension Unspecified essential hypertension Mixed hyperlipidemia PAD (peripheral artery disease) (HCC) Peripheral vascular disease, unspecified Chronic pain syndrome Prediabetes Other abnormal glucose History of craniotomy Other postprocedural status Preoperative testing- Primary Preoperative examination, unspecified [facility] Diagnosis Essential hypertension ([facility]/HCC)- Primary Unspecified essential hypertension Degenerative lumbar spinal stenosis Spinal stenosis of lumbar region DDD (degenerative disc disease), cervical Degeneration of cervical intervertebral disc Benign prostatic hyperplasia with urinary hesitancy PAD (peripheral artery disease) ([facility]) Unspecified peripheral vascular disease Hypothyroidism, postradioiodine therapy ([facility]) Trochanteric bursitis of right hip- Primary TIA (transient ischemic attack)- Primary Unspecified transient cerebral ischemia 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 ([facility]) KIKO (generalized anxiety disorder) ([facility]) Generalized anxiety disorder Unsteady Abnormality of gait 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 ([facility])- Primary PAD (peripheral artery disease) ([facility]) Unspecified peripheral vascular disease Chemotherapy-induced neuropathy ([facility]) Primary insomnia Persistent disorder of initiating or maintaining sleep Essential hypertension ([facility])- Primary Unspecified essential hypertension Chemotherapy-induced neuropathy ([facility]) Chronic obstructive pulmonary disease, unspecified COPD type ([facility]) Encounter for long-term (current) use of medications Encounter for long-term (current) use of other medications PAD (peripheral artery disease) ([facility]) Unspecified peripheral vascular disease DDD (degenerative disc disease), cervical Degeneration of cervical intervertebral disc Hypothyroidism, postradioiodine therapy ([facility]) DDD (degenerative disc disease), cervical Degeneration of cervical intervertebral disc documented in this encounter [facility]* Diagnosis DDD (degenerative disc disease), cervical- Primary Degeneration of cervical intervertebral disc Primary insomnia Persistent disorder of initiating or maintaining sleep documented in this encounter [facility]* Diagnosis Pre-op evaluation- Primary Preoperative examination, unspecified Chronic obstructive pulmonary disease, unspecified COPD type ([facility]) Cigarette smoker Tobacco use disorder Hypothyroidism, postradioiodine therapy Other postablative hypothyroidism TIA (transient ischemic attack) Unspecified transient cerebral ischemia KIKO (generalized anxiety disorder) Generalized anxiety disorder Essential hypertension Unspecified essential hypertension Mixed hyperlipidemia PAD (peripheral artery disease) ([facility]) Peripheral vascular disease, unspecified Chronic pain syndrome Prediabetes Other abnormal glucose History of craniotomy Other postprocedural status Malignant neoplasm of lung, unspecified laterality, unspecified part of lung ([facility])- Primary Abnormal blood chemistry Other abnormal blood chemistry [facility] Diagnosis Occlusive disease, arterial- Primary Embolism and thrombosis of unspecified artery Right internal carotid occlusion Malignant neoplasm of upper lobe of left lung ([facility]) [facility] Diagnosis Essential hypertension- Primary Unspecified essential hypertension Malignant neoplasm of upper lobe of left lung ([facility]CC) Mixed hyperlipidemia [facility]* Diagnosis Essential hypertension Unspecified essential hypertension Bilateral carotid artery stenosis Occlusion and stenosis of carotid artery without mention of cerebral infarction Occlusive disease, arterial Embolism and thrombosis of unspecified artery documented [facility]* Diagnosis Essential hypertension (CMS/HCC)- Primary Unspecified essential hypertension Degenerative lumbar spinal stenosis Spinal stenosis of lumbar region DDD (degenerative disc disease), cervical Degeneration of cervical intervertebral disc Benign prostatic hyperplasia with urinary hesitancy PAD (peripheral artery disease) ([facility]/HCC) Unspecified peripheral vascular disease Hypothyroidism, postradioiodine therapy ([facility]) Trochanteric bursitis of right hip- Primary TIA (transient ischemic attack)- Primary Unspecified transient cerebral ischemia 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) KIKO (generalized anxiety disorder) ([facility]/HCC) Generalized anxiety disorder Unsteady Abnormality of gait 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 ([facility]/HCC)- Primary PAD (peripheral artery disease) ([facility]/HCC) Unspecified peripheral vascular disease Chemotherapy-induced neuropathy ([facility]/HCC) Primary insomnia Persistent disorder of initiating or maintaining sleep Essential hypertension ([facility]/HCC)- Primary Unspecified essential hypertension Chemotherapy-induced neuropathy ([facility]/HCC) Chronic obstructive pulmonary disease, unspecified COPD type ([facility]/HCC) Encounter for long-term (current) use of medications Encounter for long-term (current) use of other medications PAD (peripheral artery disease) ([facility]/HCC) Unspecified peripheral vascular disease DDD (degenerative disc disease), cervical Degeneration of cervical intervertebral disc Hypothyroidism, postradioiodine therapy ([facility]/HCC) Trochanteric bursitis of right hip- Primary Right hip pain Pain in joint, pelvic region and thigh [facility] Diagnosis Pre-op evaluation- Primary Preoperative examination, unspecified Chronic obstructive pulmonary disease, unspecified COPD type ([facility]) Cigarette smoker Tobacco use disorder Hypothyroidism, postradioiodine therapy Other postablative hypothyroidism TIA (transient ischemic attack) Unspecified transient cerebral ischemia KIKO (generalized anxiety disorder) Generalized anxiety disorder Essential hypertension Unspecified essential hypertension Mixed hyperlipidemia PAD (peripheral artery disease) (HCC) Peripheral vascular disease, unspecified Chronic pain syndrome Prediabetes Other abnormal glucose History of craniotomy Other postprocedural status Palliative care by specialist- Primary Malignant neoplasm of upper lobe of left lung (HCC) Nausea Nausea alone Anxiety Anxiety state, unspecified Cancer of trachea, bronchus, and lung (HCC) Malignant neoplasm of other parts of bronchus or lung Paraneoplastic neuropathy (HCC) Other malignant neoplasm without specification of site 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 condition 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 condition classified elsewhere [facility] this [facility] Diagnosis Pre-op evaluation- Primary Preoperative examination, unspecified Chronic obstructive pulmonary disease, unspecified COPD type (HCC) Cigarette smoker Tobacco use disorder Hypothyroidism, postradioiodine therapy Other postablative hypothyroidism TIA (transient ischemic attack) Unspecified transient cerebral ischemia KIKO (generalized anxiety disorder) Generalized anxiety disorder Essential hypertension Unspecified essential hypertension Mixed hyperlipidemia PAD (peripheral artery disease) (HCC) Peripheral vascular disease, unspecified Chronic pain syndrome Prediabetes Other abnormal glucose History of craniotomy Other postprocedural status Malignant neoplasm of unspecified part of unspecified bronchus or lung (HCC)- Primary Malignant neoplasm of upper lobe of left lung (HCC) documented in this encounter [facility]* Diagnosis Pre-op evaluation- Primary Preoperative examination, unspecified Chronic obstructive pulmonary disease, unspecified COPD type (HCC) Cigarette smoker Tobacco use disorder Hypothyroidism, postradioiodine therapy Other postablative hypothyroidism TIA (transient ischemic attack) Unspecified transient cerebral ischemia KIKO (generalized anxiety disorder) Generalized anxiety disorder Essential hypertension Unspecified essential hypertension Mixed hyperlipidemia PAD (peripheral artery disease) (HCC) Peripheral vascular disease, unspecified Chronic pain syndrome Prediabetes Other abnormal glucose History of craniotomy Other postprocedural status Malignant neoplasm of unspecified part of unspecified bronchus or lung (HCC) Malignant neoplasm of upper lobe of left lung (HCC) Immunotherapy Abnormal blood chemistry Other abnormal blood chemistry Malaise and fatigue Other malaise and fatigue [facility] Diagnosis Pre-op evaluation- Primary Preoperative examination, unspecified Chronic obstructive pulmonary disease, unspecified COPD type (HCC) Cigarette smoker Tobacco use disorder Hypothyroidism, postradioiodine therapy Other postablative hypothyroidism TIA (transient ischemic attack) Unspecified transient cerebral ischemia KIKO (generalized anxiety disorder) Generalized anxiety disorder Essential hypertension Unspecified essential hypertension Mixed hyperlipidemia PAD (peripheral artery disease) ([facility]) Peripheral vascular disease, unspecified Chronic pain syndrome Prediabetes Other abnormal glucose History of craniotomy Other postprocedural status Malignant neoplasm of upper lobe of left lung (HCC)- Primary Abnormal blood chemistry Other abnormal blood chemistry Malaise and fatigue Other malaise and fatigue documented [facility] this [facility] Diagnosis Right internal carotid occlusion- Primary Occlusive disease, arterial Embolism and thrombosis of unspecified artery [facility] Diagnosis Essential hypertension Unspecified essential hypertension Bilateral carotid artery stenosis Occlusion and stenosis of carotid artery without mention of cerebral infarction Occlusive disease, arterial Embolism and thrombosis of unspecified artery documented [facility]* Diagnosis Essential hypertension ([facility]/HCC)- Primary Unspecified essential hypertension Degenerative lumbar spinal stenosis Spinal stenosis of lumbar region DDD (degenerative disc disease), cervical Degeneration of cervical intervertebral disc Benign prostatic hyperplasia with urinary hesitancy PAD (peripheral artery disease) ([facility]) Unspecified peripheral vascular disease Hypothyroidism, postradioiodine therapy ([facility]) Trochanteric bursitis of right hip- Primary TIA (transient ischemic attack)- Primary Unspecified transient cerebral ischemia 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 ([facility]/HCC) KIKO (generalized anxiety disorder) ([facility]) Generalized anxiety disorder Unsteady Abnormality of gait 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 ([facility])- Primary PAD (peripheral artery disease) ([facility]) Unspecified peripheral vascular disease Chemotherapy-induced neuropathy ([facility]) Primary insomnia Persistent disorder of initiating or maintaining sleep Essential hypertension ([facility])- Primary Unspecified essential hypertension Chemotherapy-induced neuropathy ([facility]) Chronic obstructive pulmonary disease, unspecified COPD type ([facility]) Encounter for long-term (current) use of medications Encounter for long-term (current) use of other medications PAD (peripheral artery disease) ([facility]) Unspecified peripheral vascular disease DDD (degenerative disc disease), cervical Degeneration of cervical intervertebral disc Hypothyroidism, postradioiodine therapy ([facility]) Medicare annual wellness visit, subsequent- Primary Seborrheic dermatitis Unspecified seborrheic dermatitis 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) Chronic obstructive pulmonary disease, unspecified COPD type ([facility]/HCC) documented in this encounter [facility]* Diagnosis Bilateral carotid artery stenosis- Primary Occlusion and stenosis of carotid artery without mention of cerebral infarction PAD (peripheral artery disease) ([facility]) Unspecified peripheral vascular disease [facility] Diagnosis Occlusive disease, arterial- Primary Embolism and thrombosis of unspecified artery Right internal carotid occlusion Bilateral carotid artery stenosis Occlusion and stenosis of carotid artery without mention of cerebral infarction 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) [facility] Diagnosis Squamous carcinoma of lung, left (CMS-HCC)- Primary Lung mass Swelling, mass, or lump in chest [facility]* Diagnosis Chronic obstructive pulmonary disease, unspecified COPD type ([facility])- Primary Lung mass Swelling, mass, or lump in chest documented in [facility] encounter [facility]* Diagnosis Essential hypertension- Primary Unspecified essential hypertension Bilateral carotid artery stenosis Occlusion and stenosis of carotid artery without mention of cerebral infarction Occlusive disease, arterial Embolism and thrombosis of unspecified artery [facility] Diagnosis Essential hypertension ([facility]/HCC)- Primary Unspecified essential hypertension Degenerative lumbar spinal stenosis Spinal stenosis of lumbar region DDD (degenerative disc disease), cervical Degeneration of cervical intervertebral disc Benign prostatic hyperplasia with urinary hesitancy PAD (peripheral artery disease) ([facility]) Unspecified peripheral vascular disease Hypothyroidism, postradioiodine therapy ([facility]) Trochanteric bursitis of right hip- Primary TIA (transient ischemic attack)- Primary Unspecified transient cerebral ischemia 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) KIKO (generalized anxiety disorder) ([facility]) Generalized anxiety disorder Unsteady Abnormality of gait 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)- Primary PAD (peripheral artery disease) ([facility]/HCC) Unspecified peripheral vascular disease Chemotherapy-induced neuropathy ([facility]) Primary insomnia Persistent disorder of initiating or maintaining sleep Essential hypertension ([facility]/HCC)- Primary Unspecified essential hypertension Chemotherapy-induced neuropathy ([facility]/HCC) Chronic obstructive pulmonary disease, unspecified COPD type ([facility]) Encounter for long-term (current) use of medications Encounter for long-term (current) use of other medications PAD (peripheral artery disease) ([facility]) Unspecified peripheral vascular disease DDD (degenerative disc disease), cervical Degeneration of cervical intervertebral disc Hypothyroidism, postradioiodine therapy ([facility]) Medicare annual wellness visit, subsequent- Primary Seborrheic dermatitis Unspecified seborrheic dermatitis 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 ([facility]) Chronic obstructive pulmonary disease, unspecified COPD type ([facility]) Impingement syndrome of right shoulder- Primary Acute pain of right shoulder Acute pain of left shoulder Impingement syndrome of left shoulder [facility] Pre-op evaluation- Primary Preoperative examination, unspecified Chronic obstructive pulmonary disease, unspecified COPD type (HCC) Cigarette smoker Tobacco use disorder Hypothyroidism, postradioiodine therapy Other postablative hypothyroidism TIA (transient ischemic attack) Unspecified transient cerebral ischemia KIKO (generalized anxiety disorder) Generalized anxiety disorder Essential hypertension Unspecified essential hypertension Mixed hyperlipidemia PAD (peripheral artery disease) (HCC) Peripheral vascular disease, unspecified Chronic pain syndrome Prediabetes Other abnormal glucose History of craniotomy Other postprocedural status Muscle soreness- Primary Mylagia and myositis, unspecified [facility] Diagnosis Pre-op evaluation- Primary Preoperative examination, unspecified Chronic obstructive pulmonary disease, unspecified COPD type (HCC) Cigarette smoker Tobacco use disorder Hypothyroidism, postradioiodine therapy Other postablative hypothyroidism TIA (transient ischemic attack) Unspecified transient cerebral ischemia KIKO (generalized anxiety disorder) Generalized anxiety disorder Essential hypertension Unspecified essential hypertension Mixed hyperlipidemia PAD (peripheral artery disease) (HCC) Peripheral vascular disease, unspecified Chronic pain syndrome Prediabetes Other abnormal glucose History of craniotomy Other postprocedural status Muscle soreness- Primary Mylagia and myositis, unspecified [facility] Diagnosis Pre-op evaluation- Primary Preoperative examination, unspecified Chronic obstructive pulmonary disease, unspecified COPD type (HCC) Cigarette smoker Tobacco use disorder Hypothyroidism, postradioiodine therapy Other postablative hypothyroidism TIA (transient ischemic attack) Unspecified transient cerebral ischemia KIKO (generalized anxiety disorder) Generalized anxiety disorder Essential hypertension Unspecified essential hypertension Mixed hyperlipidemia PAD (peripheral artery disease) (HCC) Peripheral vascular disease, unspecified Chronic pain syndrome Prediabetes Other abnormal glucose History of craniotomy Other postprocedural status Malignant neoplasm of upper lobe of left lung (HCC)- [facility] Diagnosis Pre-op evaluation- Primary Preoperative examination, unspecified Chronic obstructive pulmonary disease, unspecified COPD type (HCC) Cigarette smoker Tobacco use disorder Hypothyroidism, postradioiodine therapy Other postablative hypothyroidism TIA (transient ischemic attack) Unspecified transient cerebral ischemia KIKO (generalized anxiety disorder) Generalized anxiety disorder Essential hypertension Unspecified essential hypertension Mixed hyperlipidemia PAD (peripheral artery disease) (HCC) Peripheral vascular disease, unspecified Chronic pain syndrome Prediabetes Other abnormal glucose History of craniotomy Other postprocedural status Malignant neoplasm of upper lobe of left lung (HCC)- Primary documented in this encounter [facility]* Diagnosis Pre-op evaluation- Primary Preoperative examination, unspecified Chronic obstructive pulmonary disease, unspecified COPD type (HCC) Cigarette smoker Tobacco use disorder Hypothyroidism, postradioiodine therapy Other postablative hypothyroidism TIA (transient ischemic attack) Unspecified transient cerebral ischemia KIKO (generalized anxiety disorder) Generalized anxiety disorder Essential hypertension Unspecified essential hypertension Mixed hyperlipidemia PAD (peripheral artery disease) (HCC) Peripheral vascular disease, unspecified Chronic pain syndrome Prediabetes Other abnormal glucose History of craniotomy Other postprocedural status Malaise and fatigue Other malaise and fatigue Attention deficit hyperactivity disorder (ADHD), combined type documented in this encounter [facility]* Diagnosis Pre-op evaluation- Primary Preoperative examination, unspecified Chronic obstructive pulmonary disease, unspecified COPD type (HCC) Cigarette smoker Tobacco use disorder Hypothyroidism, postradioiodine therapy Other postablative hypothyroidism TIA (transient ischemic attack) Unspecified transient cerebral ischemia KIKO (generalized anxiety disorder) Generalized anxiety disorder Essential hypertension Unspecified essential hypertension Mixed hyperlipidemia PAD (peripheral artery disease) (HCC) Peripheral vascular disease, unspecified Chronic pain syndrome Prediabetes Other abnormal glucose History of craniotomy Other postprocedural status Malignant neoplasm of upper lobe of left lung (HCC)- Primary documented in this encounter [facility] note* Diagnosis Pre-op evaluation- Primary Preoperative examination, unspecified Chronic obstructive pulmonary disease, unspecified COPD type (HCC) Cigarette smoker Tobacco use disorder Hypothyroidism, postradioiodine therapy Other postablative hypothyroidism TIA (transient ischemic attack) Unspecified transient cerebral ischemia KIKO (generalized anxiety disorder) Generalized anxiety disorder Essential hypertension Unspecified essential hypertension Mixed hyperlipidemia PAD (peripheral artery disease) (HCC) Peripheral vascular disease, unspecified Chronic pain syndrome Prediabetes Other abnormal glucose History of craniotomy Other postprocedural status Malignant neoplasm of upper lobe of left lung (HCC)- Primary [facility] Diagnosis Essential hypertension ([facility]/HCC)- Primary Unspecified essential hypertension Degenerative lumbar spinal stenosis Spinal stenosis of lumbar region DDD (degenerative disc disease), cervical Degeneration of cervical intervertebral disc Benign prostatic hyperplasia with urinary hesitancy PAD (peripheral artery disease) (CMS/HCC) Unspecified peripheral vascular disease Hypothyroidism, postradioiodine therapy (CMS/HCC) Trochanteric bursitis of right hip- Primary TIA (transient ischemic attack)- Primary Unspecified transient cerebral ischemia 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) KIKO (generalized anxiety disorder) ([facility]) Generalized anxiety disorder Unsteady Abnormality of gait 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 ([facility]/HCC)- Primary PAD (peripheral artery disease) ([facility]/HCC) Unspecified peripheral vascular disease Chemotherapy-induced neuropathy ([facility]/HCC) Primary insomnia Persistent disorder of initiating or maintaining sleep Essential hypertension ([facility]/HCC)- Primary Unspecified essential hypertension Chemotherapy-induced neuropathy ([facility]/HCC) Chronic obstructive pulmonary disease, unspecified COPD type ([facility]) Encounter for long-term (current) use of medications Encounter for long-term (current) use of other medications PAD (peripheral artery disease) ([facility]/HCC) Unspecified peripheral vascular disease DDD (degenerative disc disease), cervical Degeneration of cervical intervertebral disc Hypothyroidism, postradioiodine therapy ([facility]) Medicare annual wellness visit, subsequent- Primary Seborrheic dermatitis Unspecified seborrheic dermatitis 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) Chronic obstructive pulmonary disease, unspecified COPD type ([facility]/HCC) KIKO (generalized anxiety disorder) ([facility]) Generalized anxiety disorder [facility] Diagnosis Pre-op evaluation- Primary Preoperative examination, unspecified Chronic obstructive pulmonary disease, unspecified COPD type (HCC) Cigarette smoker Tobacco use disorder Hypothyroidism, postradioiodine therapy Other postablative hypothyroidism TIA (transient ischemic attack) Unspecified transient cerebral ischemia KIKO (generalized anxiety disorder) Generalized anxiety disorder Essential hypertension Unspecified essential hypertension Mixed hyperlipidemia PAD (peripheral artery disease) Peripheral vascular disease, unspecified Chronic pain syndrome Prediabetes Other abnormal glucose History of craniotomy Other postprocedural status Malignant neoplasm of upper lobe of left lung (HCC) documented in this encounter [facility] note* Diagnosis Pre-op evaluation- Primary Preoperative examination, unspecified Chronic obstructive pulmonary disease, unspecified COPD type (HCC) Cigarette smoker Tobacco use disorder Hypothyroidism, postradioiodine therapy Other postablative hypothyroidism TIA (transient ischemic attack) Unspecified transient cerebral ischemia KIKO (generalized anxiety disorder) Generalized anxiety disorder Essential hypertension Unspecified essential hypertension Mixed hyperlipidemia PAD (peripheral artery disease) Peripheral vascular disease, unspecified Chronic pain syndrome Prediabetes Other abnormal glucose History of craniotomy Other postprocedural status Palliative care by specialist- Primary 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 Anxiety Anxiety state, unspecified 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 condition 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 condition classified elsewhere Malignant neoplasm of upper lobe of left lung (HCC) Cancer of trachea, bronchus, and lung (HCC) Malignant neoplasm of other parts of bronchus or lung Nausea Nausea alone Paraneoplastic neuropathy (HCC) Other malignant neoplasm without specification of site documented in this encounter [facility]* Diagnosis Pre-op evaluation- Primary Preoperative examination, unspecified Chronic obstructive pulmonary disease, unspecified COPD type (HCC) Cigarette smoker Tobacco use disorder Hypothyroidism, postradioiodine therapy Other postablative hypothyroidism TIA (transient ischemic attack) Unspecified transient cerebral ischemia KIKO (generalized anxiety disorder) Generalized anxiety disorder Essential hypertension Unspecified essential hypertension Mixed hyperlipidemia PAD (peripheral artery disease) Peripheral vascular disease, unspecified Chronic pain syndrome Prediabetes Other abnormal glucose History of craniotomy Other postprocedural status Malignant neoplasm of upper lobe of left lung (HCC)- Primary documented in this encounter [facility] note* Diagnosis Pre-op evaluation- Primary Preoperative examination, unspecified Chronic obstructive pulmonary disease, unspecified COPD type (HCC) Cigarette smoker Tobacco use disorder Hypothyroidism, postradioiodine therapy Other postablative hypothyroidism TIA (transient ischemic attack) Unspecified transient cerebral ischemia KIKO (generalized anxiety disorder) Generalized anxiety disorder Essential hypertension Unspecified essential hypertension Mixed hyperlipidemia PAD (peripheral artery disease) Peripheral vascular disease, unspecified Chronic pain syndrome Prediabetes Other abnormal glucose History of craniotomy Other postprocedural status Malignant neoplasm of lung, unspecified laterality, unspecified part of lung (HCC)- Primary [facility] Diagnosis Essential hypertension (CMS/HCC)- Primary Unspecified essential hypertension Degenerative lumbar spinal stenosis Spinal stenosis of lumbar region DDD (degenerative disc disease), cervical Degeneration of cervical intervertebral disc Benign prostatic hyperplasia with urinary hesitancy PAD (peripheral artery disease) (CMS/HCC) Unspecified peripheral vascular disease Hypothyroidism, postradioiodine therapy (CMS/HCC) Trochanteric bursitis of right hip- Primary TIA (transient ischemic attack)- Primary Unspecified transient cerebral ischemia 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) KIKO (generalized anxiety disorder) (CMS/HCC) Generalized anxiety disorder Unsteady Abnormality of gait 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)- Primary PAD (peripheral artery disease) (CMS/HCC) Unspecified peripheral vascular disease Chemotherapy-induced neuropathy ([facility]/HCC) Primary insomnia Persistent disorder of initiating or maintaining sleep Essential hypertension ([facility]/HCC)- Primary Unspecified essential hypertension Chemotherapy-induced neuropathy ([facility]/HCC) Chronic obstructive pulmonary disease, unspecified COPD type ([facility]) Encounter for long-term (current) use of medications Encounter for long-term (current) use of other medications PAD (peripheral artery disease) ([facility]/HCC) Unspecified peripheral vascular disease DDD (degenerative disc disease), cervical Degeneration of cervical intervertebral disc Hypothyroidism, postradioiodine therapy ([facility]/HCC) Medicare annual wellness visit, subsequent- Primary Seborrheic dermatitis Unspecified seborrheic dermatitis 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) Chronic obstructive pulmonary disease, unspecified COPD type ([facility]) DDD (degenerative disc disease), cervical Degeneration of cervical intervertebral disc [facility] Diagnosis Pre-op evaluation- Primary Preoperative examination, unspecified Chronic obstructive pulmonary disease, unspecified COPD type (HCC) Cigarette smoker Tobacco use disorder Hypothyroidism, postradioiodine therapy Other postablative hypothyroidism TIA (transient ischemic attack) Unspecified transient cerebral ischemia KIKO (generalized anxiety disorder) Generalized anxiety disorder Essential hypertension Unspecified essential hypertension Mixed hyperlipidemia PAD (peripheral artery disease) Peripheral vascular disease, unspecified Chronic pain syndrome Prediabetes Other abnormal glucose History of craniotomy Other postprocedural status Malignant neoplasm of upper lobe of left lung (HCC)- Primary [facility] Diagnosis Pre-op evaluation- Primary Preoperative examination, unspecified Chronic obstructive pulmonary disease, unspecified COPD type (HCC) Cigarette smoker Tobacco use disorder Hypothyroidism, postradioiodine therapy Other postablative hypothyroidism TIA (transient ischemic attack) Unspecified transient cerebral ischemia KIKO (generalized anxiety disorder) Generalized anxiety disorder Essential hypertension Unspecified essential hypertension Mixed hyperlipidemia PAD (peripheral artery disease) Peripheral vascular disease, unspecified Chronic pain syndrome Prediabetes Other abnormal glucose History of craniotomy Other postprocedural status Malaise and fatigue Other malaise and fatigue Attention deficit hyperactivity disorder (ADHD), combined type [facility] Diagnosis Essential hypertension (CMS/HCC)- Primary Unspecified essential hypertension Degenerative lumbar spinal stenosis Spinal stenosis of lumbar region DDD (degenerative disc disease), cervical Degeneration of cervical intervertebral disc Benign prostatic hyperplasia with urinary hesitancy PAD (peripheral artery disease) (CMS/HCC) Unspecified peripheral vascular disease Hypothyroidism, postradioiodine therapy (CMS/HCC) Trochanteric bursitis of right hip- Primary TIA (transient ischemic attack)- Primary Unspecified transient cerebral ischemia 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) KIKO (generalized anxiety disorder) (CMS/HCC) Generalized anxiety disorder Unsteady Abnormality of gait 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)- Primary PAD (peripheral artery disease) (CMS/HCC) Unspecified peripheral vascular disease Chemotherapy-induced neuropathy (CMS/HCC) Primary insomnia Persistent disorder of initiating or maintaining sleep Essential hypertension (CMS/HCC)- Primary Unspecified essential hypertension Chemotherapy-induced neuropathy (CMS/HCC) Chronic obstructive pulmonary disease, unspecified COPD type (CMS/HCC) Encounter for long-term (current) use of medications Encounter for long-term (current) use of other medications PAD (peripheral artery disease) (CMS/HCC) Unspecified peripheral vascular disease DDD (degenerative disc disease), cervical Degeneration of cervical intervertebral disc Hypothyroidism, postradioiodine therapy (CMS/HCC) Medicare annual wellness visit, subsequent- Primary Seborrheic dermatitis Unspecified seborrheic dermatitis 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) Chronic obstructive pulmonary disease, unspecified COPD type (CMS/HCC) Chemotherapy-induced neuropathy (CMS/HCC) [facility] Diagnosis Pre-op evaluation- Primary Preoperative examination, unspecified Chronic obstructive pulmonary disease, unspecified COPD type (HCC) Cigarette smoker Tobacco use disorder Hypothyroidism, postradioiodine therapy Other postablative hypothyroidism TIA (transient ischemic attack) Unspecified transient cerebral ischemia KIKO (generalized anxiety disorder) Generalized anxiety disorder Essential hypertension Unspecified essential hypertension Mixed hyperlipidemia PAD (peripheral artery disease) Peripheral vascular disease, unspecified Chronic pain syndrome Prediabetes Other abnormal glucose History of craniotomy Other postprocedural status Malignant neoplasm of upper lobe of left lung (HCC)- Primary [facility] Diagnosis Pre-op evaluation- Primary Preoperative examination, unspecified Chronic obstructive pulmonary disease, unspecified COPD type (HCC) Cigarette smoker Tobacco use disorder Hypothyroidism, postradioiodine therapy Other postablative hypothyroidism TIA (transient ischemic attack) Unspecified transient cerebral ischemia KIKO (generalized anxiety disorder) Generalized anxiety disorder Essential hypertension Unspecified essential hypertension Mixed hyperlipidemia PAD (peripheral artery disease) Peripheral vascular disease, unspecified Chronic pain syndrome Prediabetes Other abnormal glucose History of craniotomy Other postprocedural status Malignant neoplasm of upper lobe of left lung (HCC)- Primary Syncope and collapse Syncope and collapse documented in this encounter [facility]* Diagnosis Pre-op evaluation- Primary Preoperative examination, unspecified Chronic obstructive pulmonary disease, unspecified COPD type (HCC) Cigarette smoker Tobacco use disorder Hypothyroidism, postradioiodine therapy Other postablative hypothyroidism TIA (transient ischemic attack) Unspecified transient cerebral ischemia KIKO (generalized anxiety disorder) Generalized anxiety disorder Essential hypertension Unspecified essential hypertension Mixed hyperlipidemia PAD (peripheral artery disease) Peripheral vascular disease, unspecified Chronic pain syndrome Prediabetes Other abnormal glucose History of craniotomy Other postprocedural status Syncope and collapse [facility] Diagnosis Pre-op evaluation- Primary Preoperative examination, unspecified Chronic obstructive pulmonary disease, unspecified COPD type (HCC) Cigarette smoker Tobacco use disorder Hypothyroidism, postradioiodine therapy Other postablative hypothyroidism TIA (transient ischemic attack) Unspecified transient cerebral ischemia KIKO (generalized anxiety disorder) Generalized anxiety disorder Essential hypertension Unspecified essential hypertension Mixed hyperlipidemia PAD (peripheral artery disease) Peripheral vascular disease, unspecified Chronic pain syndrome Prediabetes Other abnormal glucose History of craniotomy Other postprocedural status Syncope and collapse Malignant neoplasm of upper lobe of left lung (HCC) Immunotherapy Nonintractable headache, unspecified chronicity pattern, unspecified headache type [facility]- Primary Preoperative examination, unspecified Chronic obstructive pulmonary disease, unspecified COPD type (HCC) Cigarette smoker Tobacco use disorder Hypothyroidism, postradioiodine therapy Other postablative hypothyroidism TIA (transient ischemic attack) Unspecified transient cerebral ischemia KIKO (generalized anxiety disorder) Generalized anxiety disorder Essential hypertension Unspecified essential hypertension Mixed hyperlipidemia PAD (peripheral artery disease) Peripheral vascular disease, unspecified Chronic pain syndrome Prediabetes Other abnormal glucose History of craniotomy Other postprocedural status Malignant neoplasm of unspecified part of unspecified bronchus or lung (HCC)- Primary Immunotherapy Nonintractable headache, unspecified chronicity pattern, unspecified headache type Malaise and fatigue Other malaise and fatigue Abnormal blood chemistry Other abnormal blood chemistry Anemia, unspecified type Malignant neoplasm of lower lobe, left bronchus or lung (HCC) Personal history of malignant neoplasm of bronchus and lung 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 Other specified disorders of thyroid [facility] Diagnosis Internal carotid artery stenosis, bilateral Occlusive disease, arterial Embolism and thrombosis of unspecified artery Atheroembolism of bilateral lower extremities (CMS-HCC) [facility] Diagnosis Pre-op evaluation- Primary Preoperative examination, unspecified Chronic obstructive pulmonary disease, unspecified COPD type (HCC) Cigarette smoker Tobacco use disorder Hypothyroidism, postradioiodine therapy Other postablative hypothyroidism TIA (transient ischemic attack) Unspecified transient cerebral ischemia KIKO (generalized anxiety disorder) Generalized anxiety disorder Essential hypertension Unspecified essential hypertension Mixed hyperlipidemia PAD (peripheral artery disease) Peripheral vascular disease, unspecified Chronic pain syndrome Prediabetes Other abnormal glucose History of craniotomy Other postprocedural status Immunotherapy- Primary Nonintractable headache, unspecified chronicity pattern, unspecified headache type [facility] this [facility] Diagnosis Essential hypertension (CMS/HCC)- Primary Unspecified essential hypertension Degenerative lumbar spinal stenosis Spinal stenosis of lumbar region DDD (degenerative disc disease), cervical Degeneration of cervical intervertebral disc Benign prostatic hyperplasia with urinary hesitancy PAD (peripheral artery disease) (CMS/HCC) Unspecified peripheral vascular disease Hypothyroidism, postradioiodine therapy (CMS/HCC) Trochanteric bursitis of right hip- Primary TIA (transient ischemic attack)- Primary Unspecified transient cerebral ischemia 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) KIKO (generalized anxiety disorder) ([facility]) Generalized anxiety disorder Unsteady Abnormality of gait 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 ([facility]/HCC)- Primary PAD (peripheral artery disease) ([facility]/HCC) Unspecified peripheral vascular disease Chemotherapy-induced neuropathy ([facility]/HCC) Primary insomnia Persistent disorder of initiating or maintaining sleep Essential hypertension ([facility]/HCC)- Primary Unspecified essential hypertension Chemotherapy-induced neuropathy ([facility]) Chronic obstructive pulmonary disease, unspecified COPD type ([facility]) Encounter for long-term (current) use of medications Encounter for long-term (current) use of other medications PAD (peripheral artery disease) ([facility]) Unspecified peripheral vascular disease DDD (degenerative disc disease), cervical Degeneration of cervical intervertebral disc Hypothyroidism, postradioiodine therapy ([facility]) Medicare annual wellness visit, subsequent- Primary Seborrheic dermatitis Unspecified seborrheic dermatitis 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 ([facility]) Chronic obstructive pulmonary disease, unspecified COPD type ([facility]) DDD (degenerative disc disease), cervical Degeneration of cervical intervertebral disc [facility] Pre-op evaluation- Primary Preoperative examination, unspecified Chronic obstructive pulmonary disease, unspecified COPD type ([facility]) Cigarette smoker Tobacco use disorder Hypothyroidism, postradioiodine therapy Other postablative hypothyroidism TIA (transient ischemic attack) Unspecified transient cerebral ischemia KIKO (generalized anxiety disorder) Generalized anxiety disorder Essential hypertension Unspecified essential hypertension Mixed hyperlipidemia PAD (peripheral artery disease) Peripheral vascular disease, unspecified Chronic pain syndrome Prediabetes Other abnormal glucose History of craniotomy Other postprocedural status Malignant neoplasm of upper lobe of left lung (HCC)- Primary [facility] Diagnosis Essential hypertension- Primary Unspecified essential hypertension Degenerative lumbar spinal stenosis Spinal stenosis of lumbar region DDD (degenerative disc disease), cervical Degeneration of cervical intervertebral disc Benign prostatic hyperplasia with urinary hesitancy PAD (peripheral artery disease) Unspecified peripheral vascular disease Hypothyroidism, postradioiodine therapy Trochanteric bursitis of right hip- Primary TIA (transient ischemic attack)- Primary Unspecified transient cerebral ischemia 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) KIKO (generalized anxiety disorder) Generalized anxiety disorder Unsteady Abnormality of gait 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)- Primary PAD (peripheral artery disease) Unspecified peripheral vascular disease Chemotherapy-induced neuropathy (HCC) Primary insomnia Persistent disorder of initiating or maintaining sleep Essential hypertension- Primary Unspecified essential hypertension Chemotherapy-induced neuropathy (HCC) Chronic obstructive pulmonary disease, unspecified COPD type (HCC) Encounter for long-term (current) use of medications Encounter for long-term (current) use of other medications PAD (peripheral artery disease) Unspecified peripheral vascular disease DDD (degenerative disc disease), cervical Degeneration of cervical intervertebral disc Hypothyroidism, postradioiodine therapy Medicare annual wellness visit, subsequent- Primary Seborrheic dermatitis Unspecified seborrheic dermatitis 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) Chronic obstructive pulmonary disease, unspecified COPD type (HCC) Trochanteric bursitis of right hip- Primary [facility] Diagnosis Essential hypertension- Primary Unspecified essential hypertension Degenerative lumbar spinal stenosis Spinal stenosis of lumbar region DDD (degenerative disc disease), cervical Degeneration of cervical intervertebral disc Benign prostatic hyperplasia with urinary hesitancy PAD (peripheral artery disease) Unspecified peripheral vascular disease Hypothyroidism, postradioiodine therapy Trochanteric bursitis of right hip- Primary TIA (transient ischemic attack)- Primary Unspecified transient cerebral ischemia 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) KIKO (generalized anxiety disorder) Generalized anxiety disorder Unsteady Abnormality of gait 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)- Primary PAD (peripheral artery disease) Unspecified peripheral vascular disease Chemotherapy-induced neuropathy (HCC) Primary insomnia Persistent disorder of initiating or maintaining sleep Essential hypertension- Primary Unspecified essential hypertension Chemotherapy-induced neuropathy (HCC) Chronic obstructive pulmonary disease, unspecified COPD type (HCC) Encounter for long-term (current) use of medications Encounter for long-term (current) use of other medications PAD (peripheral artery disease) Unspecified peripheral vascular disease DDD (degenerative disc disease), cervical Degeneration of cervical intervertebral disc Hypothyroidism, postradioiodine therapy Medicare annual wellness visit, subsequent- Primary Seborrheic dermatitis Unspecified seborrheic dermatitis 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) Chronic obstructive pulmonary disease, unspecified COPD type (HCC) Trochanteric bursitis of right hip- Primary documented [facility]* Diagnosis Essential hypertension- Primary Unspecified essential hypertension Degenerative lumbar spinal stenosis Spinal stenosis of lumbar region DDD (degenerative disc disease), cervical Degeneration of cervical intervertebral disc Benign prostatic hyperplasia with urinary hesitancy PAD (peripheral artery disease) Unspecified peripheral vascular disease Hypothyroidism, postradioiodine therapy Trochanteric bursitis of right hip- Primary TIA (transient ischemic attack)- Primary Unspecified transient cerebral ischemia 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) KIKO (generalized anxiety disorder) Generalized anxiety disorder Unsteady Abnormality of gait 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)- Primary PAD (peripheral artery disease) Unspecified peripheral vascular disease Chemotherapy-induced neuropathy (HCC) Primary insomnia Persistent disorder of initiating or maintaining sleep Essential hypertension- Primary Unspecified essential hypertension Chemotherapy-induced neuropathy (HCC) Chronic obstructive pulmonary disease, unspecified COPD type (HCC) Encounter for long-term (current) use of medications Encounter for long-term (current) use of other medications PAD (peripheral artery disease) Unspecified peripheral vascular disease DDD (degenerative disc disease), cervical Degeneration of cervical intervertebral disc Hypothyroidism, postradioiodine therapy Medicare annual wellness visit, subsequent- Primary Seborrheic dermatitis Unspecified seborrheic dermatitis 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) Chronic obstructive pulmonary disease, unspecified COPD type (HCC) Primary insomnia Persistent disorder of initiating or maintaining sleep DDD (degenerative disc disease), cervical Degeneration of cervical intervertebral disc [facility] Diagnosis Pre-op evaluation- Primary Preoperative examination, unspecified Chronic obstructive pulmonary disease, unspecified COPD type (HCC) Cigarette smoker Tobacco use disorder Hypothyroidism, postradioiodine therapy Other postablative hypothyroidism TIA (transient ischemic attack) Unspecified transient cerebral ischemia KIKO (generalized anxiety disorder) Generalized anxiety disorder Essential hypertension Unspecified essential hypertension Mixed hyperlipidemia PAD (peripheral artery disease) Peripheral vascular disease, unspecified Chronic pain syndrome Prediabetes Other abnormal glucose History of craniotomy Other postprocedural status Malaise and fatigue- Primary Other malaise and fatigue [facility] Diagnosis Essential hypertension- Primary Unspecified essential hypertension Degenerative lumbar spinal stenosis Spinal stenosis of lumbar region DDD (degenerative disc disease), cervical Degeneration of cervical intervertebral disc Benign prostatic hyperplasia with urinary hesitancy PAD (peripheral artery disease) Unspecified peripheral vascular disease Hypothyroidism, postradioiodine therapy Trochanteric bursitis of right hip- Primary TIA (transient ischemic attack)- Primary Unspecified transient cerebral ischemia 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) KIKO (generalized anxiety disorder) Generalized anxiety disorder Unsteady Abnormality of gait 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)- Primary PAD (peripheral artery disease) Unspecified peripheral vascular disease Chemotherapy-induced neuropathy (HCC) Primary insomnia Persistent disorder of initiating or maintaining sleep Essential hypertension- Primary Unspecified essential hypertension Chemotherapy-induced neuropathy (HCC) Chronic obstructive pulmonary disease, unspecified COPD type (HCC) Encounter for long-term (current) use of medications Encounter for long-term (current) use of other medications PAD (peripheral artery disease) Unspecified peripheral vascular disease DDD (degenerative disc disease), cervical Degeneration of cervical intervertebral disc Hypothyroidism, postradioiodine therapy Medicare annual wellness visit, subsequent- Primary Seborrheic dermatitis Unspecified seborrheic dermatitis 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) Chronic obstructive pulmonary disease, unspecified COPD type (HCC) Trochanteric bursitis of right hip- Primary documented in [facility] encounter [facility]* Diagnosis Essential hypertension- Primary Unspecified essential hypertension Degenerative lumbar spinal stenosis Spinal stenosis of lumbar region DDD (degenerative disc disease), cervical Degeneration of cervical intervertebral disc Benign prostatic hyperplasia with urinary hesitancy PAD (peripheral artery disease) Unspecified peripheral vascular disease Hypothyroidism, postradioiodine therapy Trochanteric bursitis of right hip- Primary TIA (transient ischemic attack)- Primary Unspecified transient cerebral ischemia 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) KIKO (generalized anxiety disorder) Generalized anxiety disorder Unsteady Abnormality of gait 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)- Primary PAD (peripheral artery disease) Unspecified peripheral vascular disease Chemotherapy-induced neuropathy (HCC) Primary insomnia Persistent disorder of initiating or maintaining sleep Essential hypertension- Primary Unspecified essential hypertension Chemotherapy-induced neuropathy (HCC) Chronic obstructive pulmonary disease, unspecified COPD type (HCC) Encounter for long-term (current) use of medications Encounter for long-term (current) use of other medications PAD (peripheral artery disease) Unspecified peripheral vascular disease DDD (degenerative disc disease), cervical Degeneration of cervical intervertebral disc Hypothyroidism, postradioiodine therapy Medicare annual wellness visit, subsequent- Primary Seborrheic dermatitis Unspecified seborrheic dermatitis 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) Chronic obstructive pulmonary disease, unspecified COPD type (HCC) Trochanteric bursitis of right hip- Primary documented in this encounter [facility]* Diagnosis Essential hypertension- Primary Unspecified essential hypertension [facility] Diagnosis Essential hypertension- Primary Unspecified essential hypertension Degenerative lumbar spinal stenosis Spinal stenosis of lumbar region DDD (degenerative disc disease), cervical Degeneration of cervical intervertebral disc Benign prostatic hyperplasia with urinary hesitancy PAD (peripheral artery disease) Unspecified peripheral vascular disease Hypothyroidism, postradioiodine therapy Trochanteric bursitis of right hip- Primary TIA (transient ischemic attack)- Primary Unspecified transient cerebral ischemia 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) KIKO (generalized anxiety disorder) Generalized anxiety disorder Unsteady Abnormality of gait 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)- Primary PAD (peripheral artery disease) Unspecified peripheral vascular disease Chemotherapy-induced neuropathy (HCC) Primary insomnia Persistent disorder of initiating or maintaining sleep Essential hypertension- Primary Unspecified essential hypertension Chemotherapy-induced neuropathy (HCC) Chronic obstructive pulmonary disease, unspecified COPD type ([facility]) Encounter for long-term (current) use of medications Encounter for long-term (current) use of other medications PAD (peripheral artery disease) Unspecified peripheral vascular disease DDD (degenerative disc disease), cervical Degeneration of cervical intervertebral disc Hypothyroidism, postradioiodine therapy Medicare annual wellness visit, subsequent- Primary Seborrheic dermatitis Unspecified seborrheic dermatitis 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) Chronic obstructive pulmonary disease, unspecified COPD type (HCC) Trochanteric bursitis of right hip- Primary documented in this encounter [facility]* Diagnosis Essential hypertension- Primary Unspecified essential hypertension Degenerative lumbar spinal stenosis Spinal stenosis of lumbar region DDD (degenerative disc disease), cervical Degeneration of cervical intervertebral disc Benign prostatic hyperplasia with urinary hesitancy PAD (peripheral artery disease) Unspecified peripheral vascular disease Hypothyroidism, postradioiodine therapy Trochanteric bursitis of right hip- Primary TIA (transient ischemic attack)- Primary Unspecified transient cerebral ischemia 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) KIKO (generalized anxiety disorder) Generalized anxiety disorder Unsteady Abnormality of gait 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)- Primary PAD (peripheral artery disease) Unspecified peripheral vascular disease Chemotherapy-induced neuropathy (HCC) Primary insomnia Persistent disorder of initiating or maintaining sleep Essential hypertension- Primary Unspecified essential hypertension Chemotherapy-induced neuropathy (HCC) Chronic obstructive pulmonary disease, unspecified COPD type ([facility]) Encounter for long-term (current) use of medications Encounter for long-term (current) use of other medications PAD (peripheral artery disease) Unspecified peripheral vascular disease DDD (degenerative disc disease), cervical Degeneration of cervical intervertebral disc Hypothyroidism, postradioiodine therapy Medicare annual wellness visit, subsequent- Primary Seborrheic dermatitis Unspecified seborrheic dermatitis 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) Chronic obstructive pulmonary disease, unspecified COPD type (HCC) Trochanteric bursitis of right hip- Primary documented in this encounter [facility]* Diagnosis Essential hypertension Unspecified essential hypertension Bilateral carotid artery stenosis Occlusion and stenosis of carotid artery without mention of cerebral infarction Occlusive disease, arterial Embolism and thrombosis of unspecified artery [facility] Diagnosis Essential hypertension- Primary Unspecified essential hypertension Degenerative lumbar spinal stenosis Spinal stenosis of lumbar region DDD (degenerative disc disease), cervical Degeneration of cervical intervertebral disc Benign prostatic hyperplasia with urinary hesitancy PAD (peripheral artery disease) Unspecified peripheral vascular disease Hypothyroidism, postradioiodine therapy Trochanteric bursitis of right hip- Primary TIA (transient ischemic attack)- Primary Unspecified transient cerebral ischemia 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) KIKO (generalized anxiety disorder) Generalized anxiety disorder Unsteady Abnormality of gait 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)- Primary PAD (peripheral artery disease) Unspecified peripheral vascular disease Chemotherapy-induced neuropathy (HCC) Primary insomnia Persistent disorder of initiating or maintaining sleep Essential hypertension- Primary Unspecified essential hypertension Chemotherapy-induced neuropathy (HCC) Chronic obstructive pulmonary disease, unspecified COPD type (HCC) Encounter for long-term (current) use of medications Encounter for long-term (current) use of other medications PAD (peripheral artery disease) Unspecified peripheral vascular disease DDD (degenerative disc disease), cervical Degeneration of cervical intervertebral disc Hypothyroidism, postradioiodine therapy Medicare annual wellness visit, subsequent- Primary Seborrheic dermatitis Unspecified seborrheic dermatitis 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) Chronic obstructive pulmonary disease, unspecified COPD type (HCC) Essential hypertension- Primary Unspecified essential hypertension Chronic obstructive pulmonary disease, unspecified COPD type (HCC) 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) Primary insomnia Persistent disorder of initiating or maintaining sleep Trochanteric bursitis of right hip documented in this encounter [facility]* Diagnosis Essential hypertension- Primary Unspecified essential hypertension Degenerative lumbar spinal stenosis Spinal stenosis of lumbar region DDD (degenerative disc disease), cervical Degeneration of cervical intervertebral disc Benign prostatic hyperplasia with urinary hesitancy PAD (peripheral artery disease) Unspecified peripheral vascular disease Hypothyroidism, postradioiodine therapy Trochanteric bursitis of right hip- Primary TIA (transient ischemic attack)- Primary Unspecified transient cerebral ischemia 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) KIKO (generalized anxiety disorder) Generalized anxiety disorder Unsteady Abnormality of gait 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)- Primary PAD (peripheral artery disease) Unspecified peripheral vascular disease Chemotherapy-induced neuropathy (HCC) Primary insomnia Persistent disorder of initiating or maintaining sleep Essential hypertension- Primary Unspecified essential hypertension Chemotherapy-induced neuropathy (HCC) Chronic obstructive pulmonary disease, unspecified COPD type (HCC) Encounter for long-term (current) use of medications Encounter for long-term (current) use of other medications PAD (peripheral artery disease) Unspecified peripheral vascular disease DDD (degenerative disc disease), cervical Degeneration of cervical intervertebral disc Hypothyroidism, postradioiodine therapy Medicare annual wellness visit, subsequent- Primary Seborrheic dermatitis Unspecified seborrheic dermatitis 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) Chronic obstructive pulmonary disease, unspecified COPD type (HCC) Essential hypertension- Primary Unspecified essential hypertension Chronic obstructive pulmonary disease, unspecified COPD type (HCC) 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) Primary insomnia Persistent disorder of initiating or maintaining sleep Trochanteric bursitis of right hip Trochanteric bursitis of right hip- Primary documented in this encounter [facility]* Diagnosis Essential hypertension- Primary Unspecified essential hypertension Degenerative lumbar spinal stenosis Spinal stenosis of lumbar region DDD (degenerative disc disease), cervical Degeneration of cervical intervertebral disc Benign prostatic hyperplasia with urinary hesitancy PAD (peripheral artery disease) Unspecified peripheral vascular disease Hypothyroidism, postradioiodine therapy Trochanteric bursitis of right hip- Primary TIA (transient ischemic attack)- Primary Unspecified transient cerebral ischemia 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) KIKO (generalized anxiety disorder) Generalized anxiety disorder Unsteady Abnormality of gait 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)- Primary PAD (peripheral artery disease) Unspecified peripheral vascular disease Chemotherapy-induced neuropathy (HCC) Primary insomnia Persistent disorder of initiating or maintaining sleep Essential hypertension- Primary Unspecified essential hypertension Chemotherapy-induced neuropathy (HCC) Chronic obstructive pulmonary disease, unspecified COPD type (HCC) Encounter for long-term (current) use of medications Encounter for long-term (current) use of other medications PAD (peripheral artery disease) Unspecified peripheral vascular disease DDD (degenerative disc disease), cervical Degeneration of cervical intervertebral disc Hypothyroidism, postradioiodine therapy Medicare annual wellness visit, subsequent- Primary Seborrheic dermatitis Unspecified seborrheic dermatitis 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) Chronic obstructive pulmonary disease, unspecified COPD type (HCC) Essential hypertension- Primary Unspecified essential hypertension Chronic obstructive pulmonary disease, unspecified COPD type (HCC) 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) Primary insomnia Persistent disorder of initiating or maintaining sleep Trochanteric bursitis of right hip Trochanteric bursitis of right hip- Primary [facility] Diagnosis Pre-op evaluation- Primary Preoperative examination, unspecified Chronic obstructive pulmonary disease, unspecified COPD type (HCC) Cigarette smoker Tobacco use disorder Hypothyroidism, postradioiodine therapy Other postablative hypothyroidism TIA (transient ischemic attack) Unspecified transient cerebral ischemia KIKO (generalized anxiety disorder) Generalized anxiety disorder Essential hypertension Unspecified essential hypertension Mixed hyperlipidemia PAD (peripheral artery disease) Peripheral vascular disease, unspecified Chronic pain syndrome Prediabetes Other abnormal glucose History of craniotomy Other postprocedural status Radiation-induced pulmonary fibrosis (HCC)- Primary Chronic and other pulmonary manifestations due to radiation Shortness of breath [facility] Diagnosis Pre-op evaluation- Primary Preoperative examination, unspecified Chronic obstructive pulmonary disease, unspecified COPD type (HCC) Cigarette smoker Tobacco use disorder Hypothyroidism, postradioiodine therapy Other postablative hypothyroidism TIA (transient ischemic attack) Unspecified transient cerebral ischemia KIKO (generalized anxiety disorder) Generalized anxiety disorder Essential hypertension Unspecified essential hypertension Mixed hyperlipidemia PAD (peripheral artery disease) Peripheral vascular disease, unspecified Chronic pain syndrome Prediabetes Other abnormal glucose History of craniotomy Other postprocedural status 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 Shortness of breath [facility] Diagnosis Pre-op evaluation- Primary Preoperative examination, unspecified Chronic obstructive pulmonary disease, unspecified COPD type (HCC) Cigarette smoker Tobacco use disorder Hypothyroidism, postradioiodine therapy Other postablative hypothyroidism TIA (transient ischemic attack) Unspecified transient cerebral ischemia KIKO (generalized anxiety disorder) Generalized anxiety disorder Essential hypertension Unspecified essential hypertension Mixed hyperlipidemia PAD (peripheral artery disease) Peripheral vascular disease, unspecified Chronic pain syndrome Prediabetes Other abnormal glucose History of craniotomy Other postprocedural status Radiation-induced pulmonary fibrosis (HCC)- Primary Chronic and other pulmonary manifestations due to radiation Malignant neoplasm of unspecified part of unspecified bronchus or lung (HCC) Neuralgia Neuralgia, neuritis, and radiculitis, unspecified Pleural effusion, not elsewhere classified Herpes zoster without complications Herpes zoster without mention of complication Encounter for follow-up examination after completed treatment for malignant neoplasm 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 documented [facility] this [facility] Diagnosis Pre-op evaluation- Primary Preoperative examination, unspecified Chronic obstructive pulmonary disease, unspecified COPD type (HCC) Cigarette smoker Tobacco use disorder Hypothyroidism, postradioiodine therapy Other postablative hypothyroidism TIA (transient ischemic attack) Unspecified transient cerebral ischemia KIKO (generalized anxiety disorder) Generalized anxiety disorder Essential hypertension Unspecified essential hypertension Mixed hyperlipidemia PAD (peripheral artery disease) Peripheral vascular disease, unspecified Chronic pain syndrome Prediabetes Other abnormal glucose History of craniotomy Other postprocedural status Malignant neoplasm of unspecified part of unspecified bronchus or lung (HCC) Immunotherapy Malaise and fatigue Other malaise and fatigue Abnormal blood chemistry Other abnormal blood chemistry documented in this [facility] Author Clarence Stevens [facility] HospitalNote Date/TimeAugust 2024 8:51[place] [address] Hospitalist H&P Signed Patient: Erin Pena MR#: [id number] : 1955 Acct:[id number] Age/Sex: 68 / M Adm Date: 5 Loc: Room: [address] [place] [address] Type: ADM IN Attending Dr: Clarence Stevens DO Copies to: MD Clarence Perez, ~ HPI DATE OF EXAMINATION: 10/27/24 CHIEF COMPLAINT: Chest and rib pain HISTORY OF PRESENT ILLNESS: This patient is a 68-year-old male who presented to the emergency department with severe left-sidedchest and rib pain. This been worsening over the prior 3to 4 days. He describes it is continuous but does worsen with inspiration. Hashad a minimal cough that is mostly nonproductive and sometimes with clear sputum. Patient has a presenting blood pressure 183/77 mmHg, 97% pulse oximetry on room air, heart rate of 79 bpm, respirations 20/min, temperature 98.1 ?F. Laboratoryevaluation reveals a unremarkable CBC and chemistries. Cardiac markers within normal limits. CT angiography of the chest was obtained to rule out PE and negative for thrombus but notable for a left-sided pleural effusion and small pericardial effusion. Left-sided suprahilar airspace opacity is reported thought to be related to prior lung cancer. Notably there is a history of lung cancer for which the patient has received radiation treatment with his most recent radiation treatment to the left lung being performed in late July of this year. A chest x-ray done as an outpatient yesterday noted this left-sided effusion and he was directed to come to the ER for this reason. Despite aggressive IV pain control provided in the ER he is still quite uncomfortable in regards to this complaint and was brought in under the hospitalist service for further evaluation and treatment. Most recent plan per oncology was to follow-up with PET scan in November to guide any further lung cancer treatment of his squamous cell carcinoma Physical Examination: GENERAL APPEARANCE: Alert, up in bed AAOx3, mildly uncomfortable. CARDIAC: Normal S1 and S2. No S3, S4 or murmurs. LUNGS: Clear to auscultation bilaterally diminished breath sounds left side ABDOMEN: Positive bowel sounds. Soft, nontender. No guarding or signs of an acute abdomen MUSCULOSKELETAL: No joint erythema or tenderness. EXTREMITIES: No clubbing, cyanosis or edema NEUROLOGICAL: No focal deficits SKIN: Skin normal color, texture and turgor with no lesions or eruptions. PSYCHIATRIC: Appropriate mood and affect Assessment and plan: 1. Left-sided chest pain/rib pain, suspected radiation pneumonitis 2. Pericardial effusion, low suspicion for pericarditis 3. Lung cancer status post radiation 4. Hypertension 5. Hypothyroidism 6. Type 2 diabetes mellitus 7. Hyperlipidemia Patient's pleural effusion is notable but not seem large enough for thoracentesis. Given his left-sided lung cancer and treatment to the area with radiation I do suspect radiation pneumonitis. This pericardial effusion theoretically could be causing some pericarditis but theoretically account for his symptoms as well. IV narcotic pain control with Dilaudid is available this evening. I have also started Toradol for better anti-inflammatory effect. Patient has orthopedic complaints and preferably would not start the patient on glucocorticoids if warranted. Furthermore radiation pneumonitis will be treatedwith a slightly more prolonged prednisone taper. Will consult pulmonology for recommendations regarding his pulmonary complaints. Echocardiogram to be ordered to evaluate his effusion if he remains an inpatient after this weekend. His home antihypertensive therapies will be continued as prescribed with amlodipine 10 mg daily. Onlevothyroxine 175 mcg daily will be continued unchanged for hypothyroidism. Atorvastatin 40 mg daily for hyperlipidemia. Metformin daily 850 mg will be continued for diabetes mellitus [facility] Medical History Lung cancer History of gastric ulcer 1975 Problem List clean-up per request of Phys. EHR Cmte Chronic low back pain Problem List clean-up per request of Phys. [facility] Problem List clean-up per request of Phys. EHR Cmte Hypertension Problem List clean-up per request of Phys. EHR Cmte Hypothyroidism Problem List clean-up per request of Phys. 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 Problem List clean-up per request of Phys. EHR Cmte BCC (basal cell carcinoma), face Excision of same Problem List clean-up per request of Phys. EHR Cmte Surgical History History of appendectomy Problem List clean-up per request of Phys. [facility] History of craniotomy 2015- Middle fossa craniotomy ; encephalocele, CSF leak; titanium plate head. Problem List clean-up per request of Phys. EHR Cmte History of phacoemulsification of cataract of both eyes with intraocular lens implantation Problem List clean-up per request of Phys. [facility] History of cervical spinal surgery Posterior cervical fusion x 2 Problem List clean-up per request of Phys. EHR Cmte History of carpal tunnel release of both wrists Problem List clean-up per request of Phys. EHR Cmte Family History Father Heart disease Mother Heart disease Family/Other Coronary artery disease Social History Smoking Status: Never smoker Tobacco Type: cigarettes Substance Use Type: None Meds Medications and Allergies Allergies Sulfa (Sulfonamide Antibiotics) Allergy (Unknown, Verified 10/27/24 14:00) unknown; childhood allergy Home Medications ascorbic acid (vitamin C) 500 mg tablet (Vitamin C) 500 mg PO DAILY supplement 11/02/19 [History Confirmed 10/27/24] atorvastatin 40 mg tablet 40 mg PO DAILY hyperlipidemia 11/02/19 [History Confirmed 10/27/24] levothyroxine 175 mcg tablet (Synthroid) 175 mcg PO DAILY hypothyroidism 11/02/19 [History Confirmed 10/27/24] efcxytsk-cs-pjmdk 300 mcg-K 60 mcg-lycop 600 mcg-lutein 300 mcg tablet (Men 50 Plus Multivitamin) 1tab PO DAILY supplement 11/02/19 [History Confirmed 10/27/24] cyclobenzaprine 10 mg tablet 10 mg PO TID PRN back spasms #50 tabs 03/21/20 [Rx Confirmed 10/27/24] amlodipine 10 mg tablet 10 mg PO DAILY 10/27/24 [History Confirmed 10/27/24] clopidogrel 75 mg tablet 75 mg PO DAILY 10/27/24 [History Confirmed 10/27/24] meloxicam 7.5 mg tablet 7.5 mg PO QHS 10/27/24 [History Confirmed 10/27/24] metformin 850 mg tablet 850 mg PO DAILY 10/27/24 [History Confirmed 10/27/24] terazosin 1 mg capsule 1 mg PO QHS 10/27/24 [History Confirmed 10/27/24] Exam Physical Exam Vital Signs: Temp Pulse Resp BP Pulse Ox O2 Del Method 98.1 F 65 18 130/61 90 L Room Air 10/27/24 14:10 10/27/24 18:20 10/27/24 18:20 10/27/24 18:20 10/27/24 18:20 10/27/24 18:20 Results - Hospitalist H&P Lab Results Labs: Laboratory Last Values Corrected WBC 9.8 X10E3/uL (4.1-10.5) 10/27/24 14:17 Uncorrected WBC Count 9.8 x10E3/uL (4.1-10.5) 10/27/24 14:17 RBC 4.67 x10E6/uL (3.90-5.60) 10/27/24 14:17 Hgb 13.8 g/dL (13.0-17.0) 10/27/24 14:17 Hct 39.9 % (38.8-50.0) 10/27/24 14:17 MCV 85.5 fl (83.5-101) 10/27/24 14:17 MCH 29.5 pg (27.5-35.2) 10/27/24 14:17 MCHC 34.6 g/dL (32.5-35.6) 10/27/24 14:17 RDW 14.9 % (12.0-14.8) H 10/27/24 14:17 Plt Count 343 x10E3/uL (150-450) 10/27/24 14:17 MPV 7.9 fl (6.6-10.1) 10/27/24 14:17 Neut % (Auto) 62.7 % (.) 10/27/24 14:17 Lymph % (Auto) 18.3 % (.) 10/27/24 14:17 [place] % (Auto) 6.8 % (.) 10/27/24 14:17 Eos % (Auto) 11.7 % (.) 10/27/24 14:17 Baso % (Auto) 0.5 % (.) 10/27/24 14:17 Nucleat RBC Rel Count 0.2 /100 WBC (0-0.5) 10/27/24 14:17 Neut # (Auto) 6.1 x10E3/uL (1.8-7.7) 10/27/24 14:17 Lymph # (Auto) 1.8 x10E3/uL (1.00-4.8) 10/27/24 14:17 [place] # (Auto) 0.7 x10E3/uL (0.0-0.8) 10/27/24 14:17 Eos # (Auto) 1.1 x10E3/uL (0.0-0.45) H 10/27/24 14:17 Baso # (Auto) 0.1 x10E3/uL (0.0-0.2) 10/27/24 14:17 Monocyte Dist Width 17.23 % (0.00-20.00) 10/27/24 14:17 PHA Creatinine Clear 88.70 10/27/24 14:17 Sodium 140 mmol/L (136-145) 10/27/24 14:17 Potassium 3.7 mmol/L (3.5-5.1) 10/27/24 14:17 Chloride 102 mmol/L (98-107) 10/27/24 14:17 Carbon Dioxide 30.8 mmol/L (21.0-31.0) 10/27/24 14:17 Anion Gap 10.9 mEq/L (6.0-15.0) 10/27/24 14:17 BUN 13 mg/dL (7-25) 10/27/24 14:17 Creatinine 0.77 mg/dL (0.70-1.30) 10/27/24 14:17 Est GFR (CKD-EPI) > 60.0 mL/Min 10/27/24 14:17 Glucose 191 mg/dL (70-100) H 10/27/24 14:17 Calcium 9.4 mg/dL (8.6-10.3) 10/27/24 14:17 Troponin I High Sens 3 ng/L (0-20) 10/27/24 16:00 B-Natriuretic Peptide 18.0 pg/mL (5-100) 10/27/24 14:17 COVID-19 Clin Com Not detected (Not Detecte) 10/27/24 14:20 Microbiology Results Micro: Microbiology - Results from entire visit 10/27/24 14:20 Nasopharyngeal Respiratory Panel (PCR) - Final Assessment & Plan Assessment/Plan (1) Atypical chest pain: Plan . IP vs OBS Justification Based on differential dx, clinical care plan, and risk of adverse events, if untreated, in my clinical judgement this patient requires an acute care setting as: INPATIENT because of an expectation ofan over 2 midnight stay. Estimated length of stay (# of days): 3 Documented By: Clarence Stevens DO 10/27/24 20 37 Signed By: <Electronically signed by Clarence Stevens DO> 10/27/242050 [facility] Work Phone: InstructionsNot on filedocumented in this encounter [facility] filedocumented in this encounter [facility]ructionsNot on filedocumented in this encounter [facility]ructionsNot on filedocumented in this encounter [facility]Not on filedocumented in this encounter [facility]ructionsNot on filedocumented in this encounter [facility]* Attachments The following attachments cannot be sent through Care Everywhere. * Endobronchial Ultrasound (Uzbek) documented in this encounterProMedimn Health SystemInstructionsNot on file documented in this encounterProMedimn Health SystemInstructionsNot on file documented in this encounterProMedica Health SystemInstructionsNot on file documented in this encounterProMedimn Health SystemInstructionsNot on file documented in this encounterProDec[facility] SystemInstructionsNot on file documented in this encounterProMccull[facility] SystemReason for referral (narrative)* Outpatient Procedure (Routine) - New RequestSpecialtyDiagnoses / ProceduresReferred By ContactReferred To [facility] Diagnoses Lung nodule Procedures ECG COMPLETE ECG ROUTINE ECG W/LEAST 12 LDS W/I&R Hugh Craig MD [id number] [place] [address] Referral IDStatusReasonStart DateExpiration DateVisits RequestedVisits [id number] Request Auto-Generated Referral / [facility] for referral (narrative)* Outpatient Procedure (Routine) - New RequestSpecialtyDiagnoses / ProceduresReferred By ContactReferred To [facility] Diagnoses Preoperative testing Procedures SPIROMETRY BASELINE ONLY SPMTRY W/VC EXPIRATORY PAWAN W/[place] [address] [id number] [facility] [employer] [address] [place] [address] Referral IDStatusReasonStart DateExpiration DateVisits RequestedVisits [id number] Request Auto-Generated Referral / * Outpatient Procedure (Routine) - New RequestSpecialtyDiagnoses / Procedures Referred By ContactReferred To [facility] Diagnoses Preoperative testing Procedures LUNG DIFFUSION CAPACITY (DLCO) [place] [address] [place] [address] [address] [place] [address] Referral IDStatusReasonStart DateExpiration DateVisits RequestedVisits [id number] Request Auto-Generated Referral * Outpatient Procedure (Routine) - New RequestSpecialtyDiagnoses / Procedures Referred By ContactReferred To [facility] Diagnoses Preoperative cardiovascular examination Procedures ECHO ECHO TTHRC R-T 2D W/WOM-MODE COMPL SPEC&[place] [address] [place] [address] [facility] [address] [address] Referral IDStatusReasonStart DateExpiration DateVisits RequestedVisits [id number] Request Auto-Generated Referral * Outpatient Procedure (Routine) - New RequestSpecialtyDiagnoses / Procedures Referred By ContactReferred To [facility] Diagnoses Preoperative testing Procedures SIX MINUTE WALK CARDIOPULMONARY [place] [phone] [place] [address] Referral IDStatusReasonStart DateExpiration DateVisits RequestedVisits [id number] Request Auto-Generated Referral * Diagnostic Procedure Only (Routine) - New RequestSpecialtyDiagnoses / ProceduresReferred By ContactReferred To ContactMOLECULAR & FUNCTIONAL IMAGING Diagnoses Preoperative testing Encounter for preoperative vascular examination Procedures NM LUNG QUANT PERFUSION QUANT DIFFERENTIAL PULM PERFUSION W/[place] [address] [place] [address] [facility] [address] [place] [address] Referral IDStatusReasonStart DateExpiration DateVisits RequestedVisits [id number] Request Auto-Generated Referral * Diagnostic Procedure Only (Routine) - New RequestSpecialtyDiagnoses / ProceduresReferred By ContactReferred To ContactMOLECULAR & FUNCTIONAL IMAGING Diagnoses Preoperative cardiovascular examination Procedures NM CARDIAC PERF STRESS/PHARM MYOCARDIAL SPECT [place] [address] [place] [address] [facility] [address] [place] [address] Referral IDStatusReasonStart DateExpiration DateVisits RequestedVisits [id number] Request Auto-Generated Referral * Consult, Test, Treat (Routine) - AuthorizedSpecialtyDiagnoses / Procedures Referred By ContactReferred To ContactRadiation Oncology Diagnoses Malignant neoplasm of upper lobe of left lung (HCC) Procedures RAD/ONC CONSULT OFFICE/OUTPATIENT NEW HIGH MDM 60 [place] [address] [place] [address] Josh Pollard MD [address] [place] [address] [place] [address] Referral IDStatusReasonStart DateExpiration DateVisits RequestedVisits [id number] PCP Requested Referral [facility] for referral (narrative)* Diagnostic Procedure Only (Routine) - AuthorizedSpecialtyDiagnoses / ProceduresReferred By Contact Referred To ContactMOLECULAR & FUNCTIONAL IMAGING Diagnoses Malignant neoplasm of unspecified part of unspecified bronchus or lung (HCC) Procedures NM PET/CT SKULL-THIGH SUBSEQUENT PET IMAGING CT ATTENUATION SKULL BASE MID-THIGH Jack Hoang MD [address] [place] [address] [place] [address] [facility] [address] [place] [address] Referral IDStatusasonStart DateExpiration DateVisits RequestedVisits [id number] Auto-Generated Referral [facility] for referral (narrative)* Diagnostic Procedure Only (Routine) - ClosedSpecialtyDiagnoses / ProceduresReferred By ContactReferred To ContactMOLECULAR & FUNCTIONAL IMAGING Diagnoses Malignant neoplasm of unspecified part of unspecified bronchus or lung (HCC) Procedures NM PET/CT SKULL-THIGH SUBSEQUENT PET IMAGING CT ATTENUATION SKULL BASE MID-THIGH Jack Hoang MD [address] [place] [address] [place] [address] [facility] [address] [place] [address] Referral IDStatusReasonStart DateExpiration DateVisits RequestedVisits [id number] Auto-Generated Referral [facility] for referral (narrative)No reason for referral information availableAkron [facility] Work Phone: [facility] Narrative* Outpatient Procedure (Routine) - ClosedSpecialtyDiagnoses / ProceduresReferred By ContactReferred To ContactHE[facility] AND [facility] Diagnoses Lung nodule Procedures ECG COMPLETE ECG ROUTINE ECG W/LEAST 12 LDS W/I&R Hugh Craig MD [address] [id number] [facility] [employer] [address] [phone] Referral IDStatusReasonStart DateExpiration DateVisits RequestedVisits [id number] Auto-Generated Referral [facility] for visit Narrative* [place] Prior Authorization (Routine) - AuthorizedSpecialtyDiagnoses / ProceduresReferred By ContactReferred To Contact Diagnoses Malignant neoplasm of upper lobe of left lung (HCC) Procedures INJECTION, NIVOLUMAB Lo Hancock MD [address] [place] [address] [place] [address] Phone: tel: fax: Hematology/Oncology [address] [place] [address] [place] [address] Phone: tel: fax: Referral IDStatusReasonStslab fork DateExpiration DateVisits RequestedVisits [id number]/12/[id number] [facility] for visit Narrative* Rehabilitation - Outpatient (Routine) - AuthorizedSpecialtyDiagnoses / ProceduresReferred By Contact Referred To ContactPhysical Therapy Diagnoses Trochanteric bursitis, right hip Procedures [place] PHYSICAL THERAPY EVALUATION LOW COMPLEX 20 MINS [place] OFFICE/OUTPATIENT NEW HIGH MDM 60 MINUTES Sergio Boogie PA fax: [facility] [address] [place] [address] Phone: tel: fax: Referral IDStatusReasonStart DateExpiration DateVisits RequestedVisits [id number]/20259/5/202566 [facility] Narrative* Rehabilitation - Outpatient (Routine) - ClosedSpecialtyDiagnoses / ProceduresReferred By ContactReferred To Contact Physical Therapy Diagnoses Trochanteric bursitis, right hip Procedures VT PHYSICAL THERAPY EVALUATION LOW COMPLEX 20 MINS VT OFFICE/OUTPATIENT NEW HIGH MDM 60 MINUTES Sergio Boogie PA fax: [facility] [address] [facility] [address] [place] [address] Phone: tel: fax: Referral IDStatusReasonStart DateExpiration DateVisits RequestedVisits [id number]/8/20259/5/202566 [facility] HealthcareReason for visit Narrative* Rehabilitation - Outpatient (Routine) - AuthorizedSpecialtyDiagnoses / ProceduresReferred By ContactReferred To ContactPhysical Therapy Diagnoses Trochanteric bursitis, right hip Procedures [place] PHYSICAL THERAPY EVALUATION LOW COMPLEX 20 MINS [place] OFFICE/OUTPATIENT NEW HIGH MDM 60 MINUTES Sergio Boogie PA fax: [facility] [address] [facility] [address] [place] [address] Phone: tel: fax: Referral IDStatusReasonStart DateExpiration DateVisits RequestedVisits [id number] Consult and Treat [facility] Healthcare Summary Purpose Family History No Family History Records Found Relationship Condition Age at Onset Recorded Date/T ruthann father Heart disease Unknown Not SpecifiedHeart diseaseUnknown Relationship Condition Age at Onset Recorded Date/T ruthann father Heart disease Unknown motherHeart diseaseUnknownfamily memberCoronary artery diseaseUnknown Advance Directives No Advanced Directives Records Found Advance Directive Response Recorded Date/ Time Advance Directives Yes October 31, 2019 3:42pm TypeDate RecordedPatient RepresentativeExplanationAdvance Directives and Living Will living will-healthcare POATypeDate RecordedPatient RepresentativeExplanationAdvance Directive(s)11/16/2023 3:40 PMAdvance Directives- Health Carer Power of Buckle Strap Drum Operator and Living WillTypeDate Recorded Patient RepresentativeExplanationAdvance Directive(s)11/16/2023 3:40 PMAdvance Directives- Health Carer Power of Buckle Strap Drum Operator and Living WillDate ActivatedDate InactivatedComments09/27/2023 6:42 PM09/29/2023 6:35 PMDate ActivatedDate InactivatedComments09/27/2023 6:42 PM09/29/2023 6:35 PMTypeDate RecordedPatient RepresentativeExplanationAdvance Directives and Living Will living will-healthcare POA Advance Directive Response Recorded Date/ Time Advance Directives Yes October 31, 2019 4:42pm Chief Complaint and Reason for Visit Chief Complaint M51.16 Chief Complaint Admit Date Amb Documentation August 31, 2024 1:27 pm fluids on lungs October 27, 2024 6: 48pm Reason for Visit Admit Date Atypical chest pain October 27, 2024 6: 48pm Pleural effusion October 27, 2024 6: 48pm Reason for Visit Admit Date Atypical chest pain October 27, 2024 6: 48pm Pleural effusion October 27, 2024 6: 48pm Squamous cell lung cancer October 27, 2 025 6:48pm Chief Complaint Admit Date Amb Documentation August 31, 2024 1:27 pm fluids on lungs October 27, 2024 6: 48pm Established Patient November 21, 2024 1:30pm Reason for Visit Admit Date Pleural effusion October 27, 2024 6: 48pm Squamous cell lung cancer October 27, 2 025 6:48pm Atypical chest pain October 27, 2024 6: 48pm Post herpetic neuralgia November 21, 2024 1:30pm Chief Complaint Admit Date fluids on lungs October 27, 2024 6: 48pm Established Patient November 21, 2024 1:30pm high sugar levels December 10, 2024 9: 09am Assessments No Assessments Information Available Reason for Referral SpecialtyDiagnoses / ProceduresReferred By ContactReferred To Contact Cardiothoracic Surgery Diagnoses Malignant neoplasm of upper lobe of left lung (HCC) Procedures CONSULT TO CARDIOTHORACIC SURGERY Lo Hancock MD [address] [place] [address] [place] [address] Referral IDStatusReasonStart DateExpiration DateVisits RequestedVisits [id number] Not Required PCP Requested Referral [id number] / ProceduresReferred By ContactReferred To ContactCardiology Diagnoses Chest pain, unspecified type Procedures CONSULT TO CARDIOLOGY OFFICE/OUTPATIENT [facility] 60 MINUTES Nancy Elizondo, WOOL SHEARER.SACK CLEANING HAND [address] [place] [address] Referral IDStatusReasonStart DateExpiration DateVisits RequestedVisits [id number] PCP Requested Referral [id number] / ProceduresReferred By ContactReferred To ContactPulmonary and Critical Care Medicine Diagnoses Chronic obstructive pulmonary disease, unspecified COPD type (HCC) Procedures CONSULT TO PULM/CRITICAL CARE OFFICE/OUTPATIENT [facility] 60 MINUTES Nancy Elizondo, WOOL SHEARER.SACK CLEANING HAND [address] [place] [address] Referral IDStatusReasonStart DateExpiration DateVisits RequestedVisits [id number] PCP Requested Referral [id number] / ProceduresReferred By ContactReferred To ContactNeurology Diagnoses TIA (transient ischemic attack) Procedures CONSULT TO NEUROLOGY OFFICE/OUTPATIENT [facility] 60 MINUTES Nancy Elizondo, WOOL SHEARER.SACK CLEANING HAND [address] [place] [address] Referral IDStatusReasonStart DateExpiration DateVisits RequestedVisits [id number] PCP Requested Referral [id number] / ProceduresReferred By ContactReferred To Contact Diagnoses 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, bronchus, and lung (HCC) Malignant neoplasm of upper lobe of left lung (HCC) Procedures CONSULT TO PALLIATIVE CARE OFFICE/OUTPATIENT [facility] 60 MINUTES Lo Hancock MD [address] [place] [address] [address] [place] [phone] Referral IDStatusReasonStart DateExpiration DateVisits RequestedVisits [id number] PCP Requested Referral [id number] / ProceduresReferred By ContactReferred To ContactCT IMAGING Diagnoses Malignant neoplasm of lung, unspecified laterality, unspecified part of lung (HCC) Malignant neoplasm of upper lobe of left lung (HCC) Procedures CT CHEST W IVCON DIAGNOSTIC COMPUTED TOMOGRAPHY THORAX W/CONTRAST Lo Hancock MD [address] [place] [address] Ct Imaging [facility] Referral IDStatusReasonStart DateExpiration DateVisits RequestedVisits [id number] Auto-Generated Referral [id number] / ProceduresReferred By ContactReferred To ContactCT IMAGING Diagnoses Malignant neoplasm of lung, unspecified laterality, unspecified part of lung (HCC) Malignant neoplasm of upper lobe of left lung (HCC) Procedures CT ABD/PEL W IVCON CT ABD & PELVIS W/CONTRAST Lo Hancock MD [address] [place] [address] Ct Imaging [place] [address] Referral IDStatusReasonStart DateExpiration DateVisits RequestedVisits [id number] Auto-Generated Referral 1Referral IDStatusReasonStart DateExpiration DateVisits RequestedVisits [id number] Auto-Generated Referral 1Referral IDStatusReasonStart DateExpiration DateVisits RequestedVisits [id number] Auto-Generated Referral [id number] / ProceduresReferred By ContactReferred To ContactRadiology Diagnoses Occlusive disease, arterial Procedures CT angiogram abdominal aorta with runoff Olegario Moreira MD [address] [facility] [address] [place], [place] [address] Referral IDStatusReasonStart DateExpiration DateVisits RequestedVisits [id number] Review/[id number] / ProceduresReferred By ContactReferred To Contact Diagnoses Occlusive disease, arterial Atheroembolism of bilateral lower extremities (CMS-HCC) Procedures Vas art doppler lwr bilat mult lev/PVR Olegario Moreira MD [address] [place] [address] Referral IDStatusReasonStart DateExpiration DateVisits RequestedVisits [id number] Review/ Additional Source Comments (unrecognized sect ion and content) No Status Records FoundNo Status Records FoundNo Status Records FoundNo Status Records FoundNo Status Records FoundNo Status Records FoundNo Status Records FoundNo Status Records FoundNo Status Records FoundNo Status Records FoundNo Status Records FoundNo Status Records FoundNo Status Records Found INFORMATION SOURCE (unrecogn ized section and content) DATE CREATED AUTHOR 06/21/2018 [facility] DATE CREATED AUTHOR AUTHOR'S ORGANIZ ATION 06/27/[address] [facility] DATE CREATED AUTHOR AUTHOR'S ORGANIZ ATION 03/20/2019 [facility] DATE CREATED AUTHOR AUTHOR'S ORGANIZ ATION 01/29/2020 [facility] DATE CREATED AUTHOR AUTHOR'S ORGANIZ ATION 03/26/2020 [facility] DATE CREATED AUTHOR AUTHOR'S ORGANIZ ATION 10/11/2023 [facility] DATE CREATED AUTHOR AUTHOR'S ORGANIZ ATION 11/02/2023 [facility] DATE CREATED AUTHOR AUTHOR'S ORGANIZ ATION 06/09/2024 [facility] DATE CREATED AUTHOR AUTHOR'S ORGANIZ ATION 08/06/2024 [facility] DATE CREATED AUTHOR AUTHOR'S ORGANIZ ATION 09/28/2024 [facility] DATE CREATED AUTHOR AUTHOR'S ORGANIZ ATION 11/15/2024 [facility] DATE CREATED AUTHOR AUTHOR'S ORGANIZ ATION 11/25/2024 [facility] DATE CREATED AUTHOR AUTHOR'S ORGANIZ ATION 12/18/2024 [facility] Reason for Visit (unrecogniz ed section and content) ReasonCommentsFollow-upNew patientReasonCommentsConsultLung CancerReasonComments AppointmentReasonCommentsBronchoscopy SchedulingReasonCommentsQuestionReason CommentsPre-Op VisitReasonCommentsIncreased SOB following Spiriva useReason CommentsLung MassReasonCommentsInformed ConsentReasonCommentsConsultMalignant Neoplasm of upper lobe of left lungReasonCommentsCare CoordinationAntiemetics ReasonCommentsCare CoordinationTreatment PlanningReasonCommentsFirst Time Treatment EducationNivolumab, Paclitaxel, & CarboplatinReasonCommentsCare CoordinationNutrition ReferralReasonCommentsLab OrdersReasonCommentsBenefits InvestigationSpecialtyDiagnoses / ProceduresReferred By ContactReferred To Contact Diagnoses Malignant neoplasm of upper lobe of left lung (HCC) Procedures CARBOPLATIN INJECTION PALONOSETRON HCL INJECTION, NIVOLUMAB FOSAPREPITANT INJECTION PACLITAXEL INJECTION Lo Hancock MD [address] [place] [address] [place] [address] [facility] [address] [place] [address] Referral IDStatusReasonStart DateExpiration DateVisits RequestedVisits [id number]/21/202410/25/669923OcuzofIsqjsrnkYylg CancerReason CommentsCare XhzuurcbwhysL8C2 Post Treatment CallReasonCommentsCare Coordination Treatment Side EffectsReasonCommentsCare CoordinationDental QuestionReason CommentsLung CancerOTVReasonOnset DateCommentsMed [id number] AnxietySpecialtyDiagnoses / ProceduresReferred By ContactReferred To Contact Diagnoses 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, bronchus, and lung (HCC) Malignant neoplasm of upper lobe of left lung (HCC) Procedures CONSULT TO PALLIATIVE CARE OFFICE/OUTPATIENT [facility] 60 MINUTES Lo Hancock MD [address] [place] [address] [place] [address] Referral IDStatusReasonStart DateExpiration DateVisits RequestedVisits [id number] PCP Requested Referral /[id number] CoordinationNumbness/Tingling; Lab RequestReferral IDStatusReasonStart DateExpiration DateVisits RequestedVisits [id number]/21/20242/323416WmrimyLwwdysvjQrlv CancerOTV ReasonCommentsPrescription RefillsReasonCommentsCare CoordinationMedication & Vaccine QuestionReasonCommentsLeg PainFoot InjuryCut on healReasonComments Follow-upReasonCommentsCare CoordinationMedication QuestionReasonCommentsCare CoordinationLetter RequestReasonCommentsCare CoordinationQuestionReasonComments Follow-upStill feeling a lot of pain from chemoReasonCommentsRadiology NM SpecialtyDiagnoses / ProceduresReferred By ContactReferred To ContactCT IMAGING Diagnoses Malignant neoplasm of lung, unspecified laterality, unspecified part of lung (HCC) Malignant neoplasm of upper lobe of left lung (HCC) Procedures CT ABD/PEL W IVCON CT ABD & PELVIS W/CONTRAST Lo Hancock MD [address] [place] [address] [place] [address] Ct Imaging [facility]95 Referral IDStatusReasonStart DateExpiration DateVisits RequestedVisits [id number] Auto-Generated Referral [id number] CoordinationCT ResultsReasonComments Established PatientDiscuss CT ResultsReasonOnset DateCommentsMed Refill 4ReasonOnset DateCommentsMed [id number] CoordinationFatigue; Body AchesReasonOnset DateCommentsMed Yyubuo9010/27/2023 ReasonCommentsFollow-upExtremity PainPt c/o pain in bilateral calves with walking-states he can walk more than 11 feet without having tostop and rest ReasonCommentsNew PatientPre-op ExamNP REFERRAL PRE OP [facility] [phone] TBD, MALIGNANTNEOPLASM OF UPPER LOBE OF LEFT LUNG, [facility] SEPTEMBER OF 2023, NO DEVICES, SCHED W/PT STRESS, ECHO FRESpecialtyDiagnoses / ProceduresReferred By ContactReferred To Contact Cardiology Diagnoses Malignant neoplasm of upper lobe of left lung (CMS-HCC) Olegario Moreira MD [address] [facility] [address] [place] [address] Phone: tel:[phone] fax: [facility] [address] [facility] [address] [place] [address] Phone: tel: fax: Referral IDStatusReasonStart DateExpiration DateVisits RequestedVisits [id number] Review Specialty Services Required [id number] RefillReasonCommentsFollow-upReason CommentsCare CoordinationTreatment DecisionReasonCommentsPalliative CareReason Onset DateCommentsMed Uhpasm4504/02/2024SpecialtyDiagnoses / ProceduresReferred By ContactReferred To ContactRadiation Oncology Diagnoses Malignant neoplasm of upper lobe of left lung (HCC) Procedures RAD/ONC CONSULT OFFICE/OUTPATIENT [facility] [place] [address] [place] [address] Josh Pollard MD [address] [place] [address] [place] [address] Referral IDStatusReasonStart DateExpiration DateVisits RequestedVisits [id number] PCP Requested Referral [id number] NMSpecialtyDiagnoses / Procedures Referred By ContactReferred To ContactMOLECULAR & FUNCTIONAL IMAGING Diagnoses Malignant neoplasm of unspecified part of unspecified bronchus or lung (HCC) Procedures NM PET/CT SKULL-THIGH SUBSEQUENT PET IMAGING CT ATTENUATION SKULL BASE MID-THIGH Jack Hoang MD [address] [place] [address] [place] [address] Molecular & Functional Imaging [address] [place] [address] Referral IDStatusReasonStart DateExpiration DateVisits RequestedVisits [id number] Auto-Generated Referral /[id number] CancerFollow upReasonCommentsPatient EducationReasonCommentsBCASperipheral artery diseaseperipheral artery disease ReasonCommentsMedicare Annual Wellness Visit SubsequentwellnessShoulder PainHip PainReasonCommentsFollow-upTesting done- art doppler completed but pt states did not check carotids which pt says they typically due ReasonCommentsFollow-upCTA 09/25; had CVA 09/26, found mass on L lung, still having dizziness and headaches ReasonCommentsNew PatientSpecialtyDiagnoses / ProceduresReferred By Contact Referred To ContactOncology Diagnoses Lung mass Kassidy Villasenor APRN-SACK CLEANING HAND [address] [place] [address] Gerald Abdi MD [address] [place] [address] Referral IDStatusReasonStart DateExpiration DateVisits RequestedVisits [id number] Review Specialty Services Required /[id number] PatientCXR: 4PFT: 10/17/2023 SpecialtyDiagnoses / ProceduresReferred By ContactReferred To ContactPulmonary Medicine Diagnoses Lung mass Kassidy Villasenor APRN-S[employer] CLEANING HAND [address] [place] [address] Estefany Lang DO [address] [place] [address] Referral IDStatusReasonStart DateExpiration DateVisits RequestedVisits [id number] Review/[id number] Change RequestReasonCommentsPainReasonCommentsPatient UpdateAppointmentReasonComments Referral RequestReasonCommentsRadiotherapy On-treatment VisitReasonComments Future AppointmentReasonOnset DateCommentsMed Fkwhpw4806/05/2024ReasonComments Nutrition TelephoneReasonOnset DateCommentsMed Wiqsdn2706/26/2024ReasonOnset Date CommentsRefill Dewtwdy8707/09/2024RitalinReasonCommentsLung CancerReasonComments Referral InformationDermatologyReasonCommentsRadiology CTSpecialtyDiagnoses / ProceduresReferred By ContactReferred To ContactCT IMAGING Diagnoses Syncope and collapse Procedures CT BRAIN WO/W IVCON CT HEAD/BRAIN W/O & W/CONTRAST MATERIAL Michelle Mejia, WOOL SHEARER.SACK CLEANING HAND [address] [place] [address] [place] [address] Phone: tel: fax: CT IMAGING [place] [address] Referral IDStatusReasonKamiah DateExpiration DateVisits RequestedVisits [id number] Review Auto-Generated Referral /[id number] / ProceduresReferred By ContactReferred To ContactMOLECULAR & FUNCTIONAL IMAGING Diagnoses Syncope and collapse Malignant neoplasm of upper lobe of left lung (HCC) Procedures NM PET/CT SKULL-THIGH SUBSEQUENT PET IMAGING CT ATTENUATION SKULL BASE MID-THIGH Michelle Mejia, WOOL SHEARER.SACK CLEANING HAND [address] [place] [address] Phone: tel: fax: Molecular Imaging [address] [place], [place] [address] Phone: tel: Referral IDStatusReasonStslab fork DateExpiration DateVisits RequestedVisits [id number] Auto-Generated Referral /[id number] CoordinationMRI resultsReasonComments Established PatientReasonCommentsFollow-up3 month follow up; BCAS; with no testing Bilateral carotid artery stenosis; patient is having some head pain fat a 4 right now; been going on for a while now has MR testing coming up for it ReasonCommentsCare CoordinationHeadache & FatigueReasonCommentsCare Coordination PET ResultsReasonOnset DateCommentsMed Fvgbez9708/07/2024ReasonOnset DateComments Med Iftvia4109/19/2024ReasonCommentsCare CoordinationFatigueReasonOnset Date CommentsCare Qkrfdjgtuufl07/17/2025Lab ResultsReasonCommentsFollow-upOV F/U 6-9 MO NO TESTS L/S LLD, SCHED W/PTReasonCommentsHip PainRight hipCoughReason CommentsCare CoordinationLung PainReasonCommentsRadio Gen RMPReasonCommentsCare CoordinationHospital AdmissionReasonCommentsCare CoordinationDischarge Follow Up CallReasonCommentsResultsSpecialtyDiagnoses / ProceduresReferred By Contact Referred To ContactMOLECULAR & FUNCTIONAL IMAGING Diagnoses Malignant neoplasm of unspecified part of unspecified bronchus or lung (HCC) Procedures NM PET/CT SKULL-THIGH SUBSEQUENT PET IMAGING CT ATTENUATION SKULL BASE MID-THIGH Lo Hancock MD [address] [place] [address] [place] [address] Phone: tel: fax: Molecular Imaging [address] [place] [address] Phone: tel: Referral IDStatusReasonStart DateExpiration DateVisits RequestedVisits [id number] Auto-Generated Referral / Care Teams (unrecognized sec tion and content) Team MemberRelationshipSpecialtyStart DateEnd Date Nakia Montez DO [address] [place] [address] PCP - Treasure CLARK11/05/21 Dick Miranda MD [address] [place] [address] PCP - GeneralFamily Medicine04/20/23Team MemberRelationshipSpecialtyStart DateEnd Date Basia Vega PCP - GeneralFamily Medicine10/13/11Team MemberRelationshipSpecialtyStart DateEnd Date Dick Miranda [address] [place] [address] PCP - GeneralFamily Medicine10/21/23Team MemberRelationshipSpecialtyStart DateEnd Date Dick Miranda [address] [place] [address] PCP - GeneralFamily Medicine10/21/23Team MemberRelationshipSpecialtyStart DateEnd Date Dick Miranda [address] [place] [address] PCP - GeneralFamily Medicine10/21/23Team MemberRelationshipSpecialtyStart DateEnd Date Dick Miranda [address] [place] [address] PCP - GeneralFamily Medicine10/21/23Team MemberRelationshipSpecialtyStart DateEnd Date Dick Miranda [address] [place] [address] PCP - GeneralFamily Medicine10/21/23Team MemberRelationshipSpecialtyStart DateEnd Date Dick Miranda [address] [place] [address] PCP - GeneralFamily Medicine10/21/23Team MemberRelationshipSpecialtyStart DateEnd Date Dick Miranda [address] [place] [address] PCP - GeneralFamily Medicine10/21/23Team MemberRelationshipSpecialtyStart DateEnd Date Dick Miranda [address] [place] [address] PCP - GeneralFamily Medicine10/21/23Team MemberRelationshipSpecialtyStart DateEnd Date Dick Miranda [address] [place] [address] PCP - GeneralFamily Medicine10/21/23Team MemberRelationshipSpecialtyStart DateEnd Date Dick Miranda [address] [place] [address] PCP - GeneralFamily Medicine10/21/23Team MemberRelationshipSpecialtyStart DateEnd Date Dick Miranda [address] [place] [address] PCP - GeneralFamily Medicine10/21/23 Lo Hancock MD [address] [place] [address] [place] [address] Hematology/Oncology11/04/23 Gerald Abdi MD [address] [place] [address] Hematology/Oncology11/04/23 Olegario Moreira MD [address] [place] [address], [address] [place] [address] 11/04/23Team MemberRelationshipSpecialtyStart DateEnd Date Dick Miranda [address] [place] [address] PCP - [facility]ly [facility]10/21/23 Lo Hancock MD [address] [place] [address] Hematology/Oncology11/04/23 Gerald Abdi MD [address] [place] [address] Hematology/Oncology11/04/23 Olegario Moreira MD [facility] [address] [place] [address] 11/04/23Team MemberRelationshipSpecialtyStart DateEnd Date Dick Miranda [address] [place] [address] [facility]/21/23 Lo Hancock MD [address] [place] [address] Hematology/Oncology11/04/23 Gerald Abdi MD [address] [place] [address] Hematology/Oncology11/04/23 Olegario Moreira MD [facility] [address] [place] [address] 11/04/23 Lo Hancock MD [address] [place] [address] PhysicianHematology/Oncology11/14/23 Michelle Mejia APRN.[employer] CLEANING HAND [address] [facility] [place] [address] Nurse PractitionerHematology/Oncology11/14/23 Noemy Chicas, EWELINA [address] [place] [address] Specialty Care CoordinatorHematology/Oncology11/14/23Team MemberRelationship SpecialtyStart DateEnd Date Dick Miranda [address] [facility] [address] PCP - GeneralFamily Medicine10/21/23 Lo Hancock MD [address] [facility] [place] [address] Hematology/Oncology11/04/23 Gerald Abdi MD [address] [place] [address] Hematology/Oncology11/04/23 Olegario Moreira MD [address] [place] [address], [address] [place] [address] 11/04/23 Lo Hancock MD [address] [place] [address] PhysicianHematology/Oncology11/14/23 Michelle Mejia APRN.[employer] CLEANING HAND [address] [place] [address] [place] [address] Nurse PractitionerHematology/Oncology11/14/23 Noemy Chicas, RN [address] [place] [address] Specialty Care CoordinatorHematology/Oncology11/14/23Team MemberRelationship SpecialtyStart DateEnd Date Dick Miranda [address] [facility] [address] PCP - GeneralFamily Medicine10/21/23 Lo Hancock MD [address] [place] [address] [address] [place] [id number] Hematology/Oncology11/04/23 Gerald Abdi MD [address] [place] [address] Hematology/Oncology11/04/23 Olegario Moreira MD [address] [place] [address], [address] [address] 11/04/23 Lo Hancock MD [address] [place] [address] [address] [place], [facility] PhysicianHematology/Oncology11/14/23 Michelle Mejia APRN.[employer] CLEANING HAND [address] [place] [address] [place] [address] Nurse PractitionerHematology/Oncology11/14/23 Noemy Chicas, EWELINA [address] [place] [address] Specialty Care CoordinatorHematology/Oncology11/14/23Team MemberRelationship SpecialtyStart DateEnd Date Dick Miranda [address] [place] [address] PCP - GeneralFamily Medicine10/21/23 Lo Hancock MD [address] [facility] [place] [address] Hematology/Oncology11/04/23 Gerald Abdi MD [address] [place] [address] Hematology/Oncology11/04/23 Olegario Moreira MD [address] [place] [address], [address] [place] [address] 11/04/23 Lo Hancock MD [address] [place] [address] PhysicianHematology/Oncology11/14/23 Michelle Mejia APRN.[employer] CLEANING HAND [address] [place] [address] Nurse PractitionerHematology/Oncology11/14/23 Noemy Chicas, EWELINA [address] [place] [address] Specialty Care CoordinatorHematology/Oncology11/14/23Team MemberRelationship SpecialtyStart DateEnd Date Dick Miranda [address] [place] [address] PCP - GeneralFamily Medicine10/21/23 Lo Hancock MD [address] [place] [address] Hematology/Oncology11/04/23 Gerald Abdi MD [address] [place] [address] Hematology/Oncology11/04/23 Olegario Moreira MD [address] [place] [address], [address] [place] [address] 11/04/23 Lo Hancock MD [address] [place] [address] [place] [address] PhysicianHematology/Oncology11/14/23 Michelle Mejia APRN.SACK CLEANING HAND [address] [place] [address] [place] [address] Nurse PractitionerHematology/Oncology11/14/23 Noemy Chicas, EWELINA [address] [place] [address] [place] [address] Specialty Care CoordinatorHematology/Oncology11/14/23 Steffany Damian LSW Social Worker11/16/23Team MemberRelationshipSpecialtyStart DateEnd Date Dick Miranda [address] [facility] [place] [address] PCP - GeneralFamily Medicine10/21/23 Lo Hancock MD [address] [place] [address] [place] [address] Hematology/Oncology11/04/23 Gerald Abdi MD [address] [place] [address] [phone] Hematology/Oncology11/04/23 Olegario Moreira MD [address], [address] [place] [address] 11/04/23 Lo Hancock MD [address] [place] [address] PhysicianHematology/Oncology11/14/23 Michelle Mejia APRN.SACK CLEANING HAND [address] [place] [address] Nurse PractitionerHematology/Oncology11/14/23 Noemy Chicas, EWELINA [address] [place] [address] Specialty Care CoordinatorHematology/Oncology11/14/23 Steffany Damian LSW Social Worker11/16/23Team MemberRelationshipSpecialtyStart DateEnd Date Dick Miranda [address] [facility] [place] [address] PCP - GeneralFamily Medicine10/21/23 Lo Hancock MD [address] [place] [address] Hematology/Oncology11/04/23 Gerald Abdi MD [address] [place] [address] Hematology/Oncology11/04/23 Olegario Moreira MD [address] [place] [address] 11/04/23 Lo Hancock MD [address] [place] [address] PhysicianHematology/Oncology11/14/23 Michelle Mejia APRN.SACK CLEANING HAND [address] [place] [address] Nurse PractitionerHematology/Oncology11/14/23 Noemy Chicas, EWELINA [address] [place] [address] Specialty Care CoordinatorHematology/Oncology11/14/23 Steffany Damian LSW Social Worker11/16/23Team MemberRelationshipSpecialtyStart DateEnd Date Dick Miranda [address] [facility] [place], [place] [id number] PCP - GeneralFamily Medicine10/21/23 Lo Hancock MD [address] [place] [address] [place] [address] Hematology/Oncology11/04/23 Gerald Abdi MD [address] [place] [address] Hematology/Oncology11/04/23 Olegario Moreira MD [address] [place] [address], [address] [place] [address] 11/04/23 Lo Hancock MD [address] [place] [address] PhysicianHematology/Oncology11/14/23 Michelle Mejia APRN.SACK CLEANING HAND [address] [facility] [place] [address] Nurse PractitionerHematology/Oncology11/14/23 Noemy Chicas, EWELINA [address] [facility] [place] [address] Specialty Care CoordinatorHematology/Oncology11/14/23 Steffany Damian LSW Social Worker11/16/23Team MemberRelationshipSpecialtyStart DateEnd Date Dick Miranda [address] [facility] [place] [address] PCP - [facility]Fasturdy [facility] Medicine10/21/23 Lo Hancock MD [address] [place] [address] Hematology/Oncology11/04/23 Gerald Abdi MD [address] [place] [address] Hematology/Oncology11/04/23 Olegario Moreira MD [address] [place] [address] 11/04/23 Lo Hancock MD [address] [place] [address] PhysicianHematology/Oncology11/14/23 Michelle Mejia, WOOL SHEARER.SACK CLEANING HAND [address] [place] [address] Nurse PractitionerHematology/Oncology11/14/23 Noemy Chicas, EWELINA [address] [facility] [place] [address] Specialty Care CoordinatorHematology/Oncology11/14/23 Steffany Damian, COURT MAGISTRATE Social Worker11/16/23Team MemberRelationshipSpecialtyStart DateEnd Date Dick Miranda [address] [place] [address] PCP - GeneralSaint [facility] Medicine10/21/23 Lo Hancokc MD [address] [facility] [place] [address] Hematology/Oncology11/04/23 Gerald Abdi MD [address] [facility] [address] [place], [id number] Hematology/Oncology11/04/23 Olegario Moreira MD [address] [facility] [address] [place], [id number] 11/04/23 Lo Hancock MD [address] [place] [address] [address] [place] [phone] PhysicianHematology/Oncology11/14/23 Michelle Mejia APRN.SACK CLEANING HAND [address] [place] [address] Nurse PractitionerHematology/Oncology11/14/23 Noemy Chicas, EWELINA [address] [facility] [place] [address] Specialty Care CoordinatorHematology/Oncology11/14/23 Steffany Damian, BLANCA Social Worker11/16/23Team MemberRelationshipSpecialtyStart DateEnd Date Dick Miranda [address] [place] [address] PCP - GeneralFamily Medicine10/21/23 Lo Hancock MD [address] [place] [address] Hematology/Oncology11/04/23 Gerald Abdi MD [address] [place], [id number] Hematology/Oncology11/04/23 Olegario Moreira MD [address] [place], [id number] 11/04/23 Lo Hancock MD [address] [place] [address] PhysicianHematology/Oncology11/14/23 Michelle Mejia APRN.SACK CLEANING HAND [address] [place] [address] Nurse PractitionerHematology/Oncology11/14/23 Noemy Chicas, EWELINA [address] [place] [address] Specialty Care CoordinatorHematology/Oncology11/14/23 Steffany Damian LSW Social Worker11/16/23Team MemberRelationshipSpecialtyStart DateEnd Date Dick Miranda [address] [place] [address] PCP - GeneralFamily Medicine10/21/23 Lo Hancock MD [address] [place] [address] Hematology/Oncology11/04/23 Gerald Abdi MD [address] [place] [address] [address] [place] [phone] Hematology/Oncology11/04/23 Olegario Moreira MD [address] [place] [address] [address] [place] [phone] 11/04/23 Lo Hancock MD [address] [place] [address] [address] [place] [phone] PhysicianHematology/Oncology11/14/23 Michelle Mejia APRN.SACK CLEANING HAND [address] [place] [address] [address] [place] [phone] Nurse PractitionerHematology/Oncology11/14/23 Noemy Chicas RN [address] [place] [address] [address] [place] [phone] Specialty Care CoordinatorHematology/Oncology11/14/23 Steffany Damian LSW Social Worker11/16/23Team MemberRelationshipSpecialtyStart DateEnd Date Dick Miranda MD [address] [place] [address] PCP - GeneralFamily Medicine04/20/23 Montse Duran, EWELINA [address] [place] [address] Registered NurseFamily Medicine10/05/23Team MemberRelationshipSpecialtyStart Date End Date Dick Miranda [address] [place] [address] PCP - GeneralFamily Medicine10/21/23 Lo Hancock MD [address] [place] [address] [place] [address] Hematology/Oncology11/04/23 Gerald Abdi MD [address] [place] [address] [place] [address] Hematology/Oncology11/04/23 Olegario Moreira MD [address] [place], [id number] 11/04/23 Lo Hancock MD [address] [place] [address] PhysicianHematology/Oncology11/14/23 Michelle Mejia APRN.SACK CLEANING HAND [address] [place] [address] Nurse PractitionerHematology/Oncology11/14/23 Noemy Chicas, EWELINA [address] [place] [address] Specialty Care CoordinatorHematology/Oncology11/14/23 Steffany Damian LSW Social Worker11/16/23Team MemberRelationshipSpecialtyStart DateEnd Date Dick Miranda [address] [facility] [place] [address] PCP - GeneralFamily Medicine10/21/23 Lo Hancock MD [address] [place] [address] Hematology/Oncology11/04/23 Gerald Abdi MD [address] [place] [address] Hematology/Oncology11/04/23 Olegario Moreira MD [address] [place] [address] [address] [place], [id number] 11/04/23 Lo Hancock MD [address] [place] [address] [place] [address] PhysicianHematology/Oncology11/14/23 Michelle Mejia APRN.SACK CLEANING HAND [address] [place] [address] [address] [place], [id number] Nurse PractitionerHematology/Oncology11/14/23 Noemy Chicas, EWELINA [address] [place] [address] Specialty Care CoordinatorHematology/Oncology11/14/23 Steffany Damian LSW Social Worker11/16/23Team MemberRelationshipSpecialtyStart DateEnd Date Dick Miranda MD [address] [place] [address] PCP - GeneralFamily Medicine04/20/23 Montse Duran, RN [address] [place] [address] Registered NurseFamily Medicine10/05/23Team MemberRelationshipSpecialtyStart Date End Date Dick Miranda MD [address] [place] [address] PCP - GeneralFamily Medicine10/21/23 Lo Hancock MD [address] [place] [address] [place] [address] Hematology/Oncology11/04/23 Gerald Abdi MD [address] [place] [address] [place] [address] Hematology/Oncology11/04/23 Olegario Moreira MD [address] [facility] [place] [address] 11/04/23 Lo Hancock MD [address] [facility] [place] [address] PhysicianHematology/Oncology11/14/23 Michelle Mejia, ROSA.SACK CLEANING HAND [address] [facility] [place] [address] Nurse PractitionerHematology/Oncology11/14/23 Noemy Chicas, EWELINA [address] [facility] [place] [address] Specialty Care CoordinatorHematology/Oncology11/14/23 Steffany Damian LSW Social Worker11/16/23Team MemberRelationshipSpecialtyStart DateEnd Date Dick Miranda MD [address] [place] [address] PCP - GeneralFamily Medicine10/21/23 Lo Hancock MD [address] [place] [address] Hematology/Oncology11/04/23 Gerald Abdi MD [address] [place] [address] Hematology/Oncology11/04/23 Olegario Moreira MD [address] [facility] [place] [address] 11/04/23 Lo Hancock MD [address] [place] [address] PhysicianHematology/Oncology11/14/23 Michelle Mejia APRN.SACK CLEANING HAND [address] [place] [address] Nurse PractitionerHematology/Oncology11/14/23 Noemy Chicas, EWELINA [address] [place] [address] Specialty Care CoordinatorHematology/Oncology11/14/23 Steffany Damian LSW Social Worker11/16/23Team MemberRelationshipSpecialtyStart DateEnd Date Dick Miranda MD [address] [place] [address] PCP - GeneralFamily Medicine10/21/23 Lo Hancock MD [address] [place] [address] [place] [address] Hematology/Oncology11/04/23 Gerald Abdi MD [address] [place] [address] [place] [address] Hematology/Oncology11/04/23 Olegario Moreira MD [address] [place] [address] 11/04/23 Lo Hancock MD [address] [place] [address] PhysicianHematology/Oncology11/14/23 Michelle Mejia, ROSA.SACK CLEANING HAND [address] [place] [address] Nurse PractitionerHematology/Oncology11/14/23 Noemy Chicas, EWELINA [address] [facility] [place] [address] Specialty Care CoordinatorHematology/Oncology11/14/23 Steffany Damian LSW Social Worker11/16/23Team MemberRelationshipSpecialtyStart DateEnd Date Dick Miranda MD [address] [place] [address] PCP - GeneralFamily Medicine04/20/23 Montse Duran, EWELINA [address] [place] [address] Registered NurseFamily Medicine10/05/23Team MemberRelationshipSpecialtyStart Date End Date Dick Miranda MD [address] [place] [address] PCP - GeneralFamily Medicine10/21/23 Lo Hancock MD [address] [place] [phone] Hematology/Oncology11/04/23 Gerald Abdi MD [address] [place] [phone] Hematology/Oncology11/04/23 Olegario Moreira MD [address] [facility] [place] [address] 11/04/23 Lo Hancock MD [address] [place] [phone] PhysicianHematology/Oncology11/14/23 Michelle Mejia APRN.SACK CLEANING HAND [address] [place] [address] Nurse PractitionerHematology/Oncology11/14/23 Noemy Chicas, EWELINA [address] [place] [address] Specialty Care CoordinatorHematology/Oncology11/14/23 Steffany Damian LSW Social Worker11/16/23 Joey Scott, WOOL SHEARER.SACK CLEANING HAND [address] [place] [address] [place] [address] Hospice & Palliative Kvbwkduy81/22/24 Anna Rasmussen RN Specialty Care CoordinatorHospice & Palliative Hfshwcjp74/22/24Team Member RelationshipSpecialtyStart DateEnd Date Dick Miranda MD [address] [place] [address] PCP - GeneralFamily Medicine10/21/23 Lo Hancock MD [address] [place] [address] [place] [address] Hematology/Oncology11/04/23 Gerald Abdi MD [address] [place] [address] [place] [address] Hematology/Oncology11/04/23 Olegario Moreira MD [address] [place] [address] [place] [address] 11/04/23 Lo Hancock MD [address] [place] [address] [place] [address] PhysicianHematology/Oncology11/14/23 Michelle Mejia, WOOL SHEARER.SACK CLEANING HAND [address] [place] [address] Nurse PractitionerHematology/Oncology11/14/23 Noemy Chicas, RN [address] [place] [address] Specialty Care CoordinatorHematology/Oncology11/14/23 Steffany Damian LSW Social Worker11/16/23 Joey Scott, WOOL SHEARER.SACK CLEANING HAND [address] [place] [address] [place] [address] Hospice & Palliative Hadjwdqo24/22/24 Anna Rasmussen RN Specialty Care CoordinatorHospice & Palliative Xsxtwqyl69/22/24Team Member RelationshipSpecialtyStart DateEnd Date Dick Miranda MD [address] [facility] [place] [address] PCP - GeneralFamily Medicine10/21/23 Lo Hancock MD [address] [place] [address] [place] [address] Hematology/Oncology11/04/23 Gerald Abdi MD [address] [place] [address] [place] [address] Hematology/Oncology11/04/23 Olegario Moreira MD [address] [place] [address] [place] [address] 11/04/23 Lo Hancock MD [address] [place] [address] [place] [address] PhysicianHematology/Oncology11/14/23 Michelle Mejia, WOOL SHEARER.SACK CLEANING HAND [address] [place] [address] Nurse PractitionerHematology/Oncology11/14/23 Noemy Chicas, EWELINA [address] [place] [address] Specialty Care CoordinatorHematology/Oncology11/14/23 Steffany Damian LSW Social Worker11/16/23 Joey Scott, WOOL SHEARER.SACK CLEANING HAND [address] [place] [address] Hospice & Palliative Agvkdrpp19/22/24 Anna Rasmussen RN Specialty Care CoordinatorHospice & Palliative Obblaane11/22/24Team Member RelationshipSpecialtyStart DateEnd Date Dick Miranda MD [address] [place] [address] PCP - GeneralFamily Medicine10/21/23 Lo Hancock MD [address] [place] [address] [place] [address] Hematology/Oncology11/04/23 Gerald Abdi MD [address] [place] [address] [place] [address] Hematology/Oncology11/04/23 Olegario Moreira MD [address] [place] [address] 11/04/23 Lo Hancock MD [address] [place] [address] [place] [address] PhysicianHematology/Oncology11/14/23 Michelle Mejia, WOOL SHEARER.SACK CLEANING HAND [address] [place] [address] Nurse PractitionerHematology/Oncology11/14/23 Noemy Chicas, EWELINA [address] [place] [address] Specialty Care CoordinatorHematology/Oncology11/14/23 Steffany Damian LSW Social Worker11/16/23 Joey Scott, WOOL SHEARER.SACK CLEANING HAND [address] [place] [address] Hospice & Palliative Njzkevyj20/22/24 Anna Rasmussen RN Specialty Care CoordinatorHospice & Palliative Fyuyuglk86/22/24Team Member RelationshipSpecialtyStart DateEnd Date Dick Miranda MD [address] [place] [address] PCP - GeneralFamily Medicine04/20/23 Montse Durna RN [address] [place], [place] [address]J[place] [address] Registered NurseFamily Medicine10/05/23Team MemberRelationshipSpecialtyStart Date End Date Dick Miranda MD [address] [place] [address] PCP - GeneralFamily Medicine04/20/23 Montse Duran RN [address] [facility] [place] [address] Registered NurseFailly Medicine10/05/23Team MemberRelationshipSpecialtyStart Date End Date Dick Miranda MD [address] [place], [place] [address] PCP - GeneralFamily Medicine10/21/23 Lo Hancock MD [address] [place] [address] Hematology/Oncology11/04/23 Gerald Abdi MD [address] [place] [address] Hematology/Oncology11/04/23 Olegario Moreira MD [address] [place] [address] 11/04/23 Lo Hancock MD [address] [place] [address] PhysicianHematology/Oncology11/14/23 Michelle Mejia, WOOL SHEARER.SACK CLEANING HAND [address] [place] [address] Nurse PractitionerHematology/Oncology11/14/23 Noemy Chicas, EWELINA [address] [place] [address] Specialty Care CoordinatorHematology/Oncology11/14/23 Steffany Damian LSW Social Worker11/16/23 Joey Scott, WOOL SHEARER.SACK CLEANING HAND [address] [place] [address] Hospice & Palliative Tyuchewq32/22/24 Anna Rasmussen RN Specialty Care CoordinatorHospice & Palliative Cietmsar33/22/24Team Member RelationshipSpecialtyStart DateEnd Date Dick Miranda MD [address] [place] [address] PCP - [facility]04/20/23 Nakia Montez DO [address] [place] [address] PCP - [place]12/06/23 Montse Duran, RN [address] [place] [address] Registered NurseHouston [facility]10/05/23Team MemberRelationshipSpecialtyStart Date End Date Dick Miranda MD [address] [place] [address] PCP - [facility]04/20/23 Nakia Montez, DO [address] [place] [address] PCP - [place]12/06/23 Montse Duran RN [address] [place] [address] Registered [facility]10/05/23Team MemberRelationshipSpecialtyStart Date End Date Dick Miranda MD [address] [place] [address] PCP - [facility]04/20/23 Nakia Montez, [address] [place] [address] PCP - [place]12/06/23 Montse Duran, RN [address] [place] [address] Registered NurseHouston [facility]10/05/23Team MemberRelationshipSpecialtyStart Date End Date Dick Miranda MD [address] [place] [address] PCP - GeneralFamily Medicine10/21/23 Lo Hancock MD [address] [place] [place] [address] Hematology/Oncology11/04/23 Gerald Abdi MD [address] [place] [address] [address] [place], [id number] Hematology/Oncology11/04/23 Olegario Moreira MD [address] [place] [phone] 11/04/23 Lo Hancock MD [address] [place] [address] [address] [place] [phone] PhysicianHematology/Oncology11/14/23 Michelle Mejia, WOOL SHEARER.SACK CLEANING HAND [address] [place] [address] [place] [address] Nurse PractitionerHematology/Oncology11/14/23 Noemy Chicas, EWELINA [address] [place] [address] Specialty Care CoordinatorHematology/Oncology11/14/23 Steffany Damian LSW Social Worker11/16/23 Joey Scott, WOOL SHEARER.SACK CLEANING HAND [address] [place] [address] Hospice & Palliative Smbzuvys40/22/24 Anna Rasmussen RN Specialty Care CoordinatorHospice & Palliative Uhxxggoo25/22/24Team Member RelationshipSpecialtyStart DateEnd Date Dick Miranda MD [address] [place] [address] [facility]04/20/23 Montse Duran, RN [address] [place] [address] Registered NurseHouston [facility]10/05/23Team MemberRelationshipSpecialtyStart Date End Date Dick Miranda MD [address] [place] [address] PCP - Generalmily Medicine04/20/23 Nakia Montez DO [address] [place] [address] PCP - [place]12/06/23 Montse Duran, EWELINA [facility] [place] [address] Registered NurseHouston [facility]10/05/23Team MemberRelationshipSpecialtyStart Date End Date Dick Miranda MD [address] [place] [address] PCP - GeneralFamily Medicine10/21/23 Lo Hancock MD [address] [facility] [address] [place] [phone] Hematology/Oncology11/04/23 Gerald Abdi MD [address] [facility] [place] [address] Hematology/Oncology11/04/23 Olegario Moreira MD [address] [facility] [place] [place] [address] 11/04/23 Lo Hancock MD [address] [place] [address] [place] [address] PhysicianHematology/Oncology11/14/23 Michelle Mejia, WOOL SHEARER.SACK CLEANING HAND [address] [place] [address] Nurse PractitionerHematology/Oncology11/14/23 Noemy Chicas, EWELINA [address] [place] [address] Specialty Care CoordinatorHematology/Oncology11/14/23 Steffany Damian LSW Social Worker11/16/23 Joey Scott, WOOL SHEARER.SACK CLEANING HAND [address] [place] [address] [place] [address] Hospice & Palliative Hjolatnx53/22/24 Anna Rasmussen RN Specialty Care CoordinatorHospice & Palliative Njbmzers32/22/24Team Member RelationshipSpecialtyStart DateEnd Date Dick Miranda MD [address] [place] [address] PCP - GeneralFamily Medicine04/20/23 Montse Duran RN [address] [place] [address] Registered NurseFamily Medicine10/05/23Team MemberRelationshipSpecialtyStart Date End Date Dick Miranda MD [address] [place] [address] PCP - GeneralFamily Medicine04/20/23 Montse Duran RN [address] [place] [address] Registered Nursemily Medicine10/05/23Team MemberRelationshipSpecialtyStart Date End Date Dick Miranda MD [address] [place] [address] PCP - GeneralFamily Medicine04/20/23 Montse Duran, EWELINA [address] [place] [address] Registered NurseHouston [facility]10/05/23Te MemberRelationshipSpecialtyStart Date End Date Dick Miranda MD [address] [place] [address] PCP - GeneralSaint [facility]10/21/23 Lo Hancock MD [address] [facility] [facility] [address] [place], [id number] Hematology/Oncology11/04/23 Gerald Abdi MD [address] [facility] [address] [place], [id number] Hematology/Oncology11/04/23 Olegario Moreira MD [address] [facility] [address] [place], [id number] 11/04/23 Lo Hancock MD [address] [facility] [address] [place], [id number] PhysicianHematology/Oncology11/14/23 Michelle Mejia APRN.[employer] [address] [facility] [place] [address] Nurse PractitionerHematology/Oncology11/14/23 Noemy Chicas, EWELINA [address] [facility] [place] [address] Specialty Care CoordinatorHematology/Oncology11/14/23 Steffany Damian LSW Social Worker11/16/23 Joey Scott, ROSA.[facility] [address] [place] [address] [place] [phone] Hospice & Palliative Sytgwjii12/22/24 Anna Rasmussen RN Specialty Care CoordinatorHospice & Palliative Gywgypuc35/22/24Team Member RelationshipSpecialtyStart DateEnd Date Dick Miranda MD PCP - GeneralFamily Medicine09/27/23Team MemberRelationshipSpecialtyStart DateEnd Date Dick Miranda MD PCP - GeneralFamily Medicine09/27/23Team MemberRelationshipSpecialtyStart DateEnd Date Dick Miranda MD PCP - GeneralFamily Medicine09/27/23Team MemberRelationshipSpecialtyStart DateEnd Date Dick Miranda MD [address] [place] [address] PCP - GeneralFamily Medicine04/20/23 Nakia Montez DO [address] [place] [address] PCP - Williams MA12/06/23 Montse Duran, EWELINA [address] [place] [address] Registered NurseFamily Medicine10/05/23Team MemberRelationshipSpecialtyStart Date End Date Dick Miranda MD [address] [place] [address] PCP - GeneralFamily Medicine10/21/23 Lo Hancock MD [address] [place] [address] Hematology/Oncology11/04/23 Gerald Abdi MD [address] [place], [id number] Hematology/Oncology11/04/23 Olegario Moreira MD [address] [place], [id number] 11/04/23 Lo Hancock MD [address] [place], [id number] PhysicianHematology/Oncology11/14/23 Michelle Mejia, ROSA.[employer] CLE[employer] [address] [place] [address] Nurse PractitionerHematology/Oncology11/14/23 Noemy Chicas, EWELINA [address] [place] [address] Specialty Care CoordinatorHematology/Oncology11/14/23 Steffany Damian LSW Social Worker11/16/23 Joey Scott, WOOL SHEARER.[employer] CLEANING [employer] [address] [place] [address] Hospice & Palliative Hjhudwge30/22/24 Anna Rasmussen RN Specialty Care CoordinatorHospice & Palliative Hfmsmhdd43/22/24Team Member RelationshipSpecialtyStart DateEnd Date Dick Miranda MD [address] [place] [address] PCP - GeneralFamily Medicine10/21/23 Lo Hancock MD [address] [place] [address] Hematology/Oncology11/04/23 Gerald Abdi MD [address] [place] [address] [address] [place] [phone] Hematology/Oncology11/04/23 Olegario Moreira MD [address] [place] [phone] 11/04/23 Lo Hancock MD [address] [place] [address] [address] [place] [phone] PhysicianHematology/Oncology11/14/23 Michelle Mejia, WOOL SHEARER.[employer] CLEAN[employer] [address] [place] [address] [place] [address] Nurse PractitionerHematology/Oncology11/14/23 Noemy Chicas, EWELINA [address] [place] [address] Specialty Care CoordinatorHematology/Oncology11/14/23 Steffany Damian LSW Social Worker11/16/23 Joey Scott, WOOL SHEARER.[employer] CLEAN[employer] [address] [place] [address] Hospice & Palliative Gqxchzkf31/22/24 Anna Rasmussen RN Specialty Care CoordinatorHospice & Palliative Ifglrwrx46/22/24Team Member RelationshipSpecialtyStart DateEnd Date Dick Miranda MD [address] [place] [address] PCP - GeneralFamily Medicine10/21/23 Lo Hancock MD [address] [place] [address] [place] [address] Hematology/Oncology11/04/23 Gerlad Abdi MD [address] [place] [address] [address] [place], [id number] Hematology/Oncology11/04/23 Olegario Moreira MD [address] [place] [address] [address] [place], [id number] 11/04/23 Lo Hancock MD [address] [place] [address] [address] [place], [id number] PhysicianHematology/Oncology11/14/23 Michelle Mejia, WOOL SHEARER.[employer] CLEAN[employer] [address] [place] [address] [place] [address] Nurse PractitionerHematology/Oncology11/14/23 Noemy Chicas, EWELINA [address] [place] [address] [place] [address] Specialty Care CoordinatorHematology/Oncology11/14/23 Steffany Damian LSW Social Worker11/16/23 Joey Scott, WOOL SHEARER.[employer] CLEAN[employer] HAND [address] [place] [address] [place] [address] Hospice & Palliative Bktvabib91/22/24 Anna Rasmussen RN Specialty Care CoordinatorHospice & Palliative Mrtexcpy44/22/24Team Member RelationshipSpecialtyStart DateEnd Date Dick Miranda MD [address] [place] [address] PCP - GeneralFamily Medicine10/21/23 Lo Hancock MD [address] [place] [address] [place] [address] Hematology/Oncology11/04/23 Gerald Abdi MD [address] [place] [address] [address] [place] [phone] Hematology/Oncology11/04/23 Olegario Moreira MD [address] [place] [address] [place] [address] 11/04/23 Lo Hancock MD [address] [place] [address] [address] [place] [phone] PhysicianHematology/Oncology11/14/23 Michelle Mejia, WOOL SHEARER.[employer] CLEANING HAND [address] [place] [address] [place] [address] Nurse PractitionerHematology/Oncology11/14/23 Noemy Chicas RN [address] [place] [address] [place] [address] Specialty Care CoordinatorHematology/Oncology11/14/23 Steffany Damian LSW Social Worker11/16/23 Joey Scott, WOOL SHEARER.[employer] CLEANING HAND [address] [place] [address] [place] [address] Hospice & Palliative Bccnofnn68/22/24 Anan Rasmussen RN Specialty Care CoordinatorHospice & Palliative Qtfnmary55/22/24Team Member RelationshipSpecialtyStart DateEnd Date Dick Miranda MD [address] [place] [address] PCP - GeneralFamily Medicine10/21/23 Lo Hancock MD [address] [place] [address] Hematology/Oncology11/04/23 Gerald Abdi MD [address] [place] [address] [place] [address] Hematology/Oncology11/04/23 Olegario Moreira MD [address] [place] [address] [place] [address] 11/04/23 Lo Hancock MD [address] [place] [address] [place] [address] PhysicianHematology/Oncology11/14/23 Michelle Mejia, WOOL SHEARER.[employer] CLEAN[employer] HAND [address] [place] [address] [place] [address] Nurse PractitionerHematology/Oncology11/14/23 Noemy Chicas RN [address] [place] [address] [place] [address] Specialty Care CoordinatorHematology/Oncology11/14/23 Steffany Damian LSW Social Worker11/16/23 Joey Scott, WOOL SHEARER.[employer] CLEANING HAND [address] [place] [address] [place] [address] Hospice & Palliative Brwqmvbd82/22/24 Anna Rasmussen RN Specialty Care CoordinatorHospice & Palliative Pjehjnsy64/22/24Team Member RelationshipSpecialtyStart DateEnd Date Dick Miranda MD [address] [place] [address] PCP - GeneralFamily Medicine10/21/23 Lo Hancock MD [address] [facility] [place] [address] Hematology/Oncology11/04/23 Gerald Abdi MD [address] [place], [id number] Hematology/Oncology11/04/23 Olegario Moreira MD [address] [place] [address] 11/04/23 Lo Hancock MD [address] [place] [address] [address] [place], [id number] PhysicianHematology/Oncology11/14/23 Michelle Mejia, ROSA.[employer] CLE[employer] HAND [address] [place] [address] Nurse PractitionerHematology/Oncology11/14/23 Noemy Chicas, EWELINA [address] [place] [address] Specialty Care CoordinatorHematology/Oncology11/14/23 Steffany Damian LSW Social Worker11/16/23 Joey Scott, WOOL SHEARER.[employer] CLEAN[employer] HAND [address] [place] [address] Hospice & Palliative Esssoxyu38/22/24 Anna Rasmussen RN Specialty Care CoordinatorHospice & Palliative Cwvuzbts49/22/24Team Member RelationshipSpecialtyStart DateEnd Date Nakia Montez DO [address] [place] [address] PCP - GeneralFamily Medicine04/13/21Team MemberRelationshipSpecialtyStart DateEnd Date Dick Miranda MD PCP - GeneralFamily Medicine09/27/23Team MemberRelationshipSpecialtyStart DateEnd Date Dick Miranda MD [address] [place] [address] PCP - [facility]04/20/23 Montse Duran, EWELINA [address] [place] [address] Registered Nurse[facility]10/05/23Team MemberRelationshipSpecialtyStart Date End Date Dick Miranda MD [address] [place] [facility] [place] [address] PCP - [facility]04/20/23 Montse Duran, RN [address] [place] [address] Registered NurseHouston [facility]10/05/23Team MemberRelationshipSpecialtyStart Date End Date Dick Miranda MD PCP - Generalmily Medicine09/27/23Team MemberRelationshipSpecialtyStart DateEnd Date Dick Miranda MD [address] [facility] [place] [address] PCP - GeneralFamily Medicine09/27/23Team MemberRelationshipSpecialtyStart DateEnd Date Dick Miranda MD [address] [place] [address] [facility]/27/23Team MemberRelationshipSpecialtyStart DateEnd Date Dick Miranda MD PCP - Generalmily Medicine09/27/23Team MemberRelationshipSpecialtyStart DateEnd Date Dick Miranda MD PCP - [facility]09/27/23Team MemberRelationshipSpecialtyStart DateEnd Date Dick Miranda MD PCP - [facility]09/27/23Team MemberRelationshipSpecialtyStart DateEnd Date Dick Miranda MD [address] [place] [address] PCP - [facility]04/20/23 Montse Duran RN [address] [place] [address] Registered Nurse[facility]10/05/23Team MemberRelationshipSpecialtyStart Date End Date Dick Miranda MD [address] [place] [address] PCP - [facility]04/20/23 Montse Duran, EWELINA [address] [place] [address] Registered Nurse[facility]10/05/23Te MemberRelationshipSpecialtyStart Date End Date Dick Miranda MD [address] [place] [address] PCP - GeneralFamily Medicine10/21/23 Lo Hancock MD [address] [place] [address] Hematology/Oncology11/04/23 Gerald Abdi MD [address] [place] [address] [address] [place] [phone] Hematology/Oncology11/04/23 Olegario Moreira MD [address] [place] [phone] 11/04/23 Lo Hancock MD [address] [place] [address] [address] [place] [phone] PhysicianHematology/Oncology11/14/23 Michelle Mejia, WOOL SHEARER.S[employer] CLEANING HAND [address] [place] [address] [place] [address] Nurse PractitionerHematology/Oncology11/14/23 Noemy Chicas, EWELINA [address] [place] [address] Specialty Care CoordinatorHematology/Oncology11/14/23 Steffany Damian LSW Social Worker11/16/23 Joey Scott, WOOL SHEARER.[employer] CLEANING HAND [address] [place] [address] Hospice & Palliative Zhivhbpv38/22/24 Anna Rasmussen RN Specialty Care CoordinatorHospice & Palliative Bqkdyops50/22/24Team Member RelationshipSpecialtyStart DateEnd Date Dick Miranda MD [address] [place] [address] PCP - GeneralFamily Medicine10/21/23 Lo Hancock MD [address] [place] [address] [place] [address] Hematology/Oncology11/04/23 Gerald Abdi MD [address] [place] [address] [address] [place], [id number] Hematology/Oncology11/04/23 lOegario Moreira MD [address] [place] [address] [address] [place], [id number] 11/04/23 Lo Hancock MD [address] [place] [address] [address] [place], [id number] PhysicianHematology/Oncology11/14/23 Michelle Mejia, WOOL SHEARER.[employer] CLE[employer] [address] [place] [address] [place] [address] Nurse PractitionerHematology/Oncology11/14/23 Noemy Chicas, EWELINA [address] [place] [address] [place] [address] Specialty Care CoordinatorHematology/Oncology11/14/23 Steffany Damian LSW Social Worker11/16/23 Joey Scott, WOOL SHEARER.[employer] CLE[employer] [address] [place] [address] [place] [address] Hospice & Palliative Ughihguc53/22/24 Anna Rasmussen RN Specialty Care CoordinatorHospice & Palliative Avahvlex02/22/24Team Member RelationshipSpecialtyStart DateEnd Date Dick Miranda MD [address] [place] [address] PCP - GeneralFamily Medicine10/21/23 Lo Hancock MD [address] [place] [address] [place] [address] Hematology/Oncology11/04/23 Gerald Abdi MD [address] [place] [address] [address] [place] [phone] Hematology/Oncology11/04/23 Olegario Moreira MD [address] [place] [address] [place] [address] 11/04/23 Lo Hancock MD [address] [place] [address] [address] [place] [phone] PhysicianHematology/Oncology11/14/23 Michelle Mejia, WOOL SHEARER.S[employer] CLEAN[employer] HAND [address] [place] [address] [place] [address] Nurse PractitionerHematology/Oncology11/14/23 Noemy Chicas RN [address] [place] [address] [place] [address] Specialty Care CoordinatorHematology/Oncology11/14/23 Steffany Damian LSW Social Worker11/16/23 Joey Scott, WOOL SHEARER.S[employer] CLEANING HAND [address] [place] [address] [place] [address] Hospice & Palliative Rfneitqt52/22/24 Anna Rasmussen RN Specialty Care CoordinatorHospice & Palliative Oqukkuen69/22/24Team Member RelationshipSpecialtyStart DateEnd Date Dick Miranda MD [address] [place] [address] PCP - GeneralFamily Medicine10/21/23 Lo Hancock MD [address] [place] [address] Hematology/Oncology11/04/23 Gerald Abdi MD [address] [place] [address] [place] [address] Hematology/Oncology11/04/23 Olegario Moreira MD [address] [place] [address] [place] [address] 11/04/23 Lo Hancock MD [address] [place] [address] [place] [address] PhysicianHematology/Oncology11/14/23 Michelle Mejia, WOOL SHEARER.S[employer] CLEANING HAND [address] [place] [address] [place] [address] Nurse PractitionerHematology/Oncology11/14/23 Noemy Chicas RN [address] [place] [address] [place] [address] Specialty Care CoordinatorHematology/Oncology11/14/23 Steffany Damian LSW Social Worker11/16/23 Joey Scott, WOOL SHEARER.S[employer] CLEANING HAND [address] [place] [address] [place] [address] Hospice & Palliative Gcowtexw87/22/24 Anna Rasmussen RN Specialty Care CoordinatorHospice & Palliative Uxysirro33/22/24Team Member RelationshipSpecialtyStart DateEnd Date Dick Miranda MD [address] [place] [address] PCP - GeneralFamily Medicine10/21/23 Lo Hancock MD [address] [facility] [place] [address] Hematology/Oncology11/04/23 Gerald Abdi MD [address] [place], [id number] Hematology/Oncology11/04/23 Olegario Moreira MD [address] [place] [address] 11/04/23 Lo Hancock MD [address] [place] [address] [address] [place], [id number] PhysicianHematology/Oncology11/14/23 Michelle Mejia, ROSA.[employer] CLE[employer] HAND [address] [place] [address] Nurse PractitionerHematology/Oncology11/14/23 Noemy Chicas, EWELINA [address] [place] [address] Specialty Care CoordinatorHematology/Oncology11/14/23 Steffany Damian LSW Social Worker11/16/23 Joey Scott, WOOL SHEARER.S[employer] CLEANING HAND [address] [place] [address] Hospice & Palliative Qjiswdri39/22/24 Anna Rasmussen RN Specialty Care CoordinatorHospice & Palliative Xarmheim96/22/24Team Member RelationshipSpecialtyStart DateEnd Date Naderer, Dick A, MD [address] [place] [address] PCP - GeneralFamily Medicine10/21/23 Lo Hancock MD [address] [place] [address] Hematology/Oncology11/04/23 Gerald Abdi MD [address] [place] [address] Hematology/Oncology11/04/23 Olegario Moreira MD [address] [place] [address] 11/04/23 Lo Hancock MD [address] [place] [address] [place] [address] PhysicianHematology/Oncology11/14/23 Michelle Mejia, ROSA.[employer] CLE[employer] [address] [place] [address] [place] [address] Nurse PractitionerHematology/Oncology11/14/23 Noemy Chicas, EWELINA [address] [place] [address] Specialty Care CoordinatorHematology/Oncology11/14/23 Steffany Damian LSW Social Worker11/16/23 Joey Scott, WOOL SHEARER.[employer] CLEAN[employer] HAND [address] [place] [address] Hospice & Palliative Ybamdkhp83/22/24 Anna Rasmussen RN Specialty Care CoordinatorHospice & Palliative Cwtcdpjb28/22/24Team Member RelationshipSpecialtyStart DateEnd Date Dick Miranda MD [address] [place] [address] PCP - GeneralFamily Medicine10/21/23 Lo Hancock MD [address] [place] [address] Hematology/Oncology11/04/23 Gerald Abdi MD [address] [facility] [place] [address] Hematology/Oncology11/04/23 Olegario Moreira MD [address] [facility] [place] [address] 11/04/23 Lo Hancock MD [address] [facility] [place] [address] PhysicianHematology/Oncology11/14/23 Michelle Mejia, ROSA.[employer] CLE[employer] HAND [address] [place] [address] Nurse PractitionerHematology/Oncology11/14/23 Noemy Chicas, EWELINA [address] [facility] [place] [address] Specialty Care CoordinatorHematology/Oncology11/14/23 Steffany Damian LSW Social Worker11/16/23 Joey Scott, WOOL SHEARER.S[employer] CLEANING HAND [address] [place] [address] Hospice & Palliative Ycbqnzec64/22/24 Anna Rasmussen RN Specialty Care CoordinatorHospice & Palliative Pjaixezt46/22/24Team Member RelationshipSpecialtyStart DateEnd Date Dick Miranda MD [address] [place] [address] PCP - GeneralFamily Medicine10/21/23 Lo Hancock MD [address] [facility] [place] [address] Hematology/Oncology11/04/23 Gerald Abdi MD [address] [facility] [place] [address] Hematology/Oncology11/04/23 Olegario Moreira MD [address] [facility] [address] [place], [id number] 11/04/23 Lo Hancock MD [address] [place] [address] PhysicianHematology/Oncology11/14/23 Michelle Mejia, [employer] [address] [place] [address] Nurse PractitionerHematology/Oncology11/14/23 Noemy Chicas, EWELINA [address] [facility] [place] [address] Specialty Care CoordinatorHematology/Oncology11/14/23 Steffany Damian LSW Social Worker11/16/23 Joey Scott, WOOL SHEARER.SACK CLEANING HAND [address] [facility] [place] [address] Hospice & Palliative Rwlivbre97/22/24 Anna Rasmussen RN Specialty Care CoordinatorHospice & Palliative Ghfzxogu21/22/24Team Member RelationshipSpecialtyStart DateEnd Date Dick Miranda MD [address] [place] [address] PCP - GeneralFamily Medicine10/21/23 Lo Hancock MD [address] [place] [address] Hematology/Oncology11/04/23 Gerald Abdi MD [address] [place], [id number] Hematology/Oncology11/04/23 Olegario Moreira MD [address] [place] [address] [address] [place], [id number] 11/04/23 Lo Hancock MD [address] [place] [address] [address] [place], [id number] PhysicianHematology/Oncology11/14/23 Michelle Mejia, WOOL SHEARER.S[employer] CLEANING HAND [address] [place] [address] [place] [address] Nurse PractitionerHematology/Oncology11/14/23 Noemy Chicas, EWELINA [address] [place] [address] Specialty Care CoordinatorHematology/Oncology11/14/23 Steffany Damian LSW Social Worker11/16/23 Joey Scott, WOOL SHEARER.[employer] CLEAN[employer] HAND [address] [place] [address] Hospice & Palliative Fpenmhan63/22/24 Anna Rsamussen, EWELINA Specialty Care CoordinatorHospice & Palliative Uainslmj70/22/24Team Member RelationshipSpecialtyStart DateEnd Date Dick Miranda MD [address] [place] [address] PCP - GeneralFamily Medicine04/20/23 Nakia Montez, DO [address] [facility] [address] [place] [address] PCP - [place]12/06/23 Montse Duran RN [facility] [place] [address] Registered NurseFamily [facility]10/05/23Team MemberRelationshipSpecialtyStart Date End Date Dick Miranda MD [address] [place] [address] PCP - GeneralFamily Medicine04/20/23 Nakia Montez, DO [address] [facility] [address] [place] [address] PCP - [place]12/06/23 Montse Duran RN [facility] [place] [address] Registered NurseFamily Medicine10/05/23Team MemberRelationshipSpecialtyStart Date End Date Dick Miranda MD [address] [place] [address] PCP - GeneralFamily Medicine10/21/23 Lo Hancock MD [address] [place] [address] [place] [address] Hematology/Oncology11/04/23 Gerald Abdi MD [address] [place] [address] [place] [address] Hematology/Oncology11/04/23 Olegario Moreira MD [address] [place] [address] [address] [place], [id number] 11/04/23 Lo Hancock MD [address] [place] [address] [place] [address] PhysicianHematology/Oncology11/14/23 Michelle Mejia, WOOL SHEARER.[employer] CLEAN[employer] HAND [address] [place] [address] [place] [address] Nurse PractitionerHematology/Oncology11/14/23 Noemy Chicas, EWELINA [address] [place] [address] [place] [address] Specialty Care CoordinatorHematology/Oncology11/14/23 Steffany Damian LSW Social Worker11/16/23 Joey Scott, WOOL SHEARER.[employer] CLEAN[employer] [address] [place] [address] [place] [address] Hospice & Palliative Rfsdgovk03/22/24 Anna Rasmussen RN Specialty Care CoordinatorHospice & Palliative Hfueizly06/22/24Team Member RelationshipSpecialtyStart DateEnd Date Dick Miranda MD [address] [place] [address] PCP - GeneralFamily Medicine10/21/23 Lo Hancock MD [address] [place] [address] [place] [address] Hematology/Oncology11/04/23 Gerald Abdi MD [address] [place] [address] [place] [address] Hematology/Oncology11/04/23 Olegario Moreira MD [address] [place] [address] [address] [place], [id number] 11/04/23 Lo Hancock MD [address] [place] [address] [place] [address] PhysicianHematology/Oncology11/14/23 Michelle Mejia, WOOL SHEARER.[employer] CLEAN[employer] HAND [address] [place] [address] [place] [address] Nurse PractitionerHematology/Oncology11/14/23 Noemy Chicas, EWELINA [address] [place] [address] [place] [address] Specialty Care CoordinatorHematology/Oncology11/14/23 Steffany Damian LSW Social Worker11/16/23 Joey Scott, WOOL SHEARER.S[employer] CLEAN[employer] HAND [address] [place] [address] [place] [address] Hospice & Palliative Fkpqqxbf56/22/24 Anna Rasmussen RN Specialty Care CoordinatorHospice & Palliative Rdnefwxs79/22/24Team Member RelationshipSpecialtyStart DateEnd Date Dick Miranda MD [address] [place] [address] PCP - GeneralFamily Medicine10/21/23 Lo Hancock MD [address] [place] [address] [place] [address] Hematology/Oncology11/04/23 Gerald Abdi MD [address] [place] [address] [place] [address] Hematology/Oncology11/04/23 Olegario Moreira MD [address] [place] [address] [place] [address] 11/04/23 Lo Hancock MD [address] [place] [address] [place] [address] PhysicianHematology/Oncology11/14/23 Michelle Mejia, [employer] [address] [place] [address] [place] [address] Nurse PractitionerHematology/Oncology11/14/23 Noemy Chicas RN [address] [place] [address] [place] [address] Specialty Care CoordinatorHematology/Oncology11/14/23 Steffany Damian LSW Social Worker11/16/23 Joey Scott, [employer] [address] [place] [address] [place] [phone] Hospice & Palliative Nyohpxho05/22/24 Anna Rasmussen RN Specialty Care CoordinatorHospice & Palliative Oziyipif27/22/24Team Member RelationshipSpecialtyStart DateEnd Date Dick Miranda MD [address] [place] [address] PCP - GeneralFamily Medicine04/20/23 Jasen Nakia MorenoDO [address] [facility] [address] [place] [address] PCP - [place]12/06/23 Montse Duran, EWELINA [address] [place], [place] [address] Registered NurseFamily Medicine10/05/23Team MemberRelationshipSpecialtyStart Date End Date Dick Miranda MD [address] [place] [address] PCP - GeneralFamily Medicine10/21/23 Lo Hancock MD [address] [facility] [place] [address] Hematology/Oncology11/04/23 Gerald Abdi MD [address] [place] [phone] Hematology/Oncology11/04/23 Olegario Moreira MD [address] [place] [address] 11/04/23 Lo Hancock MD [address] [place] [address] [place] [address] PhysicianHematology/Oncology11/14/23 Michelle Mejia, ROSA.[employer] [address] [place] [address] Nurse PractitionerHematology/Oncology11/14/23 Noemy Chicas, EWELINA [address] [facility] [place] [address] Specialty Care CoordinatorHematology/Oncology11/14/23 Steffany Damian LSW Social Worker11/16/23 Joey Scott APRN.[employer] [address] [place] [address] [place] [address] Hospice & Palliative Ozreadrz97/22/24 Anna Rasmussen RN Specialty Care CoordinatorHospice & Palliative Pwfwtqtt98/22/24Team Member RelationshipSpecialtyStart DateEnd Date Dick Miranda MD [address] [place] [address] PCP - GeneralFamily Medicine04/20/23 Nakia Montez DO [address] [address] PCP - [place]12/06/23 Montse Duran RN [address] [facility] [place] [address] Registered NurseFamily Medicine10/05/23Team MemberRelationshipSpecialtyStart Date End Date Dick Miranda MD [address] [place] [address] PCP - GeneralFamily Medicine04/20/23 Dick Miranda MD [address] [place] [address] PCP - [place] MO06/05/24 Montse Duran RN [address] [place] [address] Registered NurseFamily Medicine10/05/23Team MemberRelationshipSpecialtyStart Date End Date Dick Miranda MD [address] [place] [address] PCP - GeneralFamily Medicine04/20/23 Montse Duran, RN [address] [place] [address] Registered NurseFamily Medicine10/05/23Team MemberRelationshipSpecialtyStart Date End Date Dick Miranda MD [address] [place] [address] PCP - GeneralFamily Medicine10/21/23 Lo Hancock MD [address] [facility] [place] [address] Hematology/Oncology11/04/23 Gerald Abdi MD [address] [facility] [address] [place] [phone] Hematology/Oncology11/04/23 Olegario Moreira MD [address] [place] [place] [address] 11/04/23 Lo Hancock MD [address] [place] [place] [address] PhysicianHematology/Oncology11/14/23 Michelle Mejia, ROSA.[employer] [address] [place] [address] Nurse PractitionerHematology/Oncology11/14/23 Noemy Chicas, EWELINA [address] [place] [address] Specialty Care CoordinatorHematology/Oncology11/14/23 Steffany Damian LSW Social Worker11/16/23 Joey Scott APRN.[employer] CLE[employer] HAND [address] [place] [address] Hospice & Palliative Stuhfwzx60/22/24 Anna Rasmussen RN Specialty Care CoordinatorHospice & Palliative Keyosqai77/22/24Team Member RelationshipSpecialtyStart DateEnd Date Dick Miranda MD [address] [place] [address] PCP - GeneralFamily Medicine10/21/23 Lo Hancock MD [address] [place] [address] Hematology/Oncology11/04/23 Gerald Abdi MD [address] [place] [address] Hematology/Oncology11/04/23 Olegario Moreira MD [address] [place] [address] 11/04/23 Lo Hancock MD [address] [place] [address] PhysicianHematology/Oncology11/14/23 Michelle Mejia APRN.[employer] CLE[employer]ING HAND [address] [place] [address] Nurse PractitionerHematology/Oncology11/14/23 Noemy Chicas, EWELINA [address] [place] [address] Specialty Care CoordinatorHematology/Oncology11/14/23 Steffany Damian LSW Social Worker11/16/23 Joey Scott, ROSA.[employer] [address] [place] [address] Hospice & Palliative Hfylcfxn36/22/24 Anna Rasmussen RN Specialty Care CoordinatorHospice & Palliative Gcvoqjrm58/22/24Team Member RelationshipSpecialtyStart DateEnd Date Dick Miranda MD [address] [place] [address] PCP - GeneralFamily Medicine10/21/23 Lo Hancock MD [address] [place] [address] [place] [address] Hematology/Oncology11/04/23 Gerald Abdi MD [address] [place] [address] [place] [address] Hematology/Oncology11/04/23 Olegario Moreira MD [address] [place] [address] [place] [address] 11/04/23 Lo Hancock MD [address] [place] [address] [place] [address] PhysicianHematology/Oncology11/14/23 Michelle Mejia, ROSA.[employer] CLE[employer] [address] [place] [address] [place] [address] Nurse PractitionerHematology/Oncology11/14/23 Noemy Chicas RN [address] [place] [address] Specialty Care CoordinatorHematology/Oncology11/14/23 Steffany Damian LSW Social Worker11/16/23 Joey Scott APRN.[employer] CLE[employer] HAND [address] [place] [address] Hospice & Palliative Laffdkpl65/22/24 Anna Rasmussen RN Specialty Care CoordinatorHospice & Palliative Cznwaqec63/22/24Team Member RelationshipSpecialtyStart DateEnd Date Dick Miranda MD [address] [place] [address] PCP - GeneralFamily Medicine10/21/23 Lo Hancock MD [address] [place] [address] [place] [address] Hematology/Oncology11/04/23 Gerald Abdi MD [address] [place] [address] [address] [place], [facility] Hematology/Oncology11/04/23 Olegario Moreira MD [address] [place] [address] 11/04/23 Lo Hancock MD [address] [place] [address] [place] [address] PhysicianHematology/Oncology11/14/23 Michelle Mejia APRN.[employer] CLE[employer] HAND [address] [place] [address] Nurse PractitionerHematology/Oncology11/14/23 Noemy Chicas, EWELINA [address] [place] [address] Specialty Care CoordinatorHematology/Oncology11/14/23 Steffany Damian LSW Social Worker11/16/23 Joey Scott APRN.[employer] CLE[employer] HAND [address] [place] [address] Hospice & Palliative Ddibqhrd29/22/24 Anna Rasmussen RN Specialty Care CoordinatorHospice & Palliative Otnmsadz88/22/24Team Member RelationshipSpecialtyStart DateEnd Date Dick Miranda MD [address] [place] [address] PCP - GeneralFamily Medicine04/20/23 Montse Duran, EWELINA [address] [place] [address] Registered NurseFamily Medicine10/05/23Team MemberRelationshipSpecialtyStart Date End Date Dick Miranda MD [address] [place] [address] PCP - GeneralFamily Medicine10/21/23 Lo Hancock MD [address] [place] [address] Hematology/Oncology11/04/23 Gerald Abdi MD [address] [place] [address] [place] [address] Hematology/Oncology11/04/23 Olegario Moreira MD [address] [place] [address] 11/04/23 Lo Hancock MD [address] [place] [address] [place] [address] PhysicianHematology/Oncology11/14/23 Michelle Mejia, ROSA.[employer] [address] [place] [address] Nurse PractitionerHematology/Oncology11/14/23 Noemy Chicas, EWELINA [address] [place] [address] Specialty Care CoordinatorHematology/Oncology11/14/23 Steffany Damian LSW Social Worker11/16/23 Joey Scott, WOOL SHEARER.[employer] CLE[employer] HAND [address] [place] [address] [place] [address] Hospice & Palliative Lagyrnow70/22/24 Anna Rasmussen RN Specialty Care CoordinatorHospice & Palliative Doddadat00/22/24Team Member RelationshipSpecialtyStart DateEnd Date Dick Miranda MD [address] [place] [address] PCP - GeneralFamily Medicine10/21/23 Lo Hancock MD [address] [place] [address] [place] [address] Hematology/Oncology11/04/23 Gerald Abdi MD [address] [place] [address] [place] [address] Hematology/Oncology11/04/23 Olegario Moreira MD [address] [place] [address] 11/04/23 Lo Hancock MD [address] [place] [address] [place] [address] PhysicianHematology/Oncology11/14/23 Michelle Mejia, WOOL SHEARER.S[employer] CLEANING HAND [address] [place] [address] [place] [address] Nurse PractitionerHematology/Oncology11/14/23 Noemy Chicas, EWELINA [address] [place] [address] [place] [address] Specialty Care CoordinatorHematology/Oncology11/14/23 Steffany Damian LSW Social Worker11/16/23 Joey Scott APRN.[employer] CLE[employer] HAND [address] [place] [address] [place] [address] Hospice & Palliative Hwqsaixd76/22/24 Anna Rasmussen RN Specialty Care CoordinatorHospice & Palliative Vcbeemcs06/22/24Team Member RelationshipSpecialtyStart DateEnd Dick Miranda MD [address] [place] [address] PCP - GeneralFamily Medicine10/21/23 Lo Hancock MD [address] [place] [address] [place] [address] Hematology/Oncology11/04/23 Gerald Abdi MD [address] [place] [address] [place] [address] Hematology/Oncology11/04/23 Olegario Moreira MD [address] [place] [address] [place] [address] 11/04/23 Lo Hancock MD [address] [place] [address] [place] [address] PhysicianHematology/Oncology11/14/23 Michelle Mejia, WOOL SHEARER.SACK CLEANING HAND [address] [place] [address] [place] [address] Nurse PractitionerHematology/Oncology11/14/23 Noemy Chicas, EWELINA [address] [place] [address] [place] [address] Specialty Care CoordinatorHematology/Oncology11/14/23 Steffany Damian LSW Social Worker11/16/23 Joey Scott, WOOL SHEARER.S[employer] CLEANING HAND [address] [place] [address] [place] [address] Hospice & Palliative Vonwgpog78/22/24 Anna Rasmussen RN Specialty Care CoordinatorHospice & Palliative Chfxocfb42/22/24Team Member RelationshipSpecialtyStart DateEnd Date Dick Miranda MD PCP - GeneralFamily Medicine09/27/23Team MemberRelationshipSpecialtyStart DateEnd Date Dick Miranda MD [address] [place] [address] PCP - GeneralFamily Medicine10/21/23 Lo Hancock MD [address] [place] [address] [place] [address] Hematology/Oncology11/04/23 Gerald Abdi MD [address] [place] [address] Hematology/Oncology11/04/23 Olegario Moreira MD [address] [place] [address] 11/04/23 Lo Hancock MD [address] [place] [address] [place] [address] PhysicianHematology/Oncology11/14/23 Michelle Mejia, WOOL SHEARER.SACK CLEANING HAND [address] [place] [address] [place] [address] Nurse PractitionerHematology/Oncology11/14/23 Noemy Chicas RN [address] [place] [address] [place] [address] Specialty Care CoordinatorHematology/Oncology11/14/23 Steffany Damian LSW Social Worker11/16/23 Joey Scott, WOOL SHEARER.S[employer] CLEANING HAND [address] [place] [address] [place] [address] Hospice & Palliative Vcekwotg82/22/24 Anna Rasmussen RN Specialty Care CoordinatorHospice & Palliative Ztpdbcyh43/22/24Team Member RelationshipSpecialtyStart DateEnd Date Dick Miranda MD [address] [place] [address] PCP - GeneralFamily Medicine10/21/23 Lo Hancock MD [address] [place] [address] [place] [address] Hematology/Oncology11/04/23 Gerald Abdi MD [address] [facility] [place] [address] Hematology/Oncology11/04/23 Olegario Moreira MD [address] [place] [address] 11/04/23 Lo Hancock MD [address] [place] [address] [place] [address] PhysicianHematology/Oncology11/14/23 Michelle Mejia, WOOL SHEARER.SACK CLEANING HAND [address] [place] [address] Nurse PractitionerHematology/Oncology11/14/23 Noemy Chicas, EWELINA [address] [place] [address] Specialty Care CoordinatorHematology/Oncology11/14/23 Steffany Damian LSW Social Worker11/16/23 Joey Scott, WOOL SHEARER.[employer] CLEANING HAND [address] [place] [address] Hospice & Palliative Epufetjr89/22/24 Anna Rasmussen RN Specialty Care CoordinatorHospice & Palliative Tiinhxjx48/22/24Team Member RelationshipSpecialtyStart DateEnd Date Dick Miranda MD [address] [place] [address] PCP - GeneralFamily Medicine04/20/23 Montse Duran, EWELINA [address] [place] [address] Registered NurseFamily Medicine10/05/23Team MemberRelationshipSpecialtyStart Date End Date Dick Miranda MD [address] [place] [address] PCP - GeneralFamily Medicine10/21/23 Lo Hancock MD [address] [facility] [place] [address] Hematology/Oncology11/04/23 Gerald Abdi MD [address] [place] [address] Hematology/Oncology11/04/23 Olegario Moreira MD [address] [place] [address] 11/04/23 Lo Hancock MD [address] [place] [address] PhysicianHematology/Oncology11/14/23 Michelle Mejia, ROSA.S[employer] CLEANING HAND [address] [place] [address] Nurse PractitionerHematology/Oncology11/14/23 Noemy Chicas, EWELINA [address] [facility] [place] [address] Specialty Care CoordinatorHematology/Oncology11/14/23 Steffany Damian LSW Social Worker11/16/23 Joey Scott, WOOL SHEARER.SACK CLEANING HAND [address] [place] [address] Hospice & Palliative Gxkltmoj27/22/24 Anna Rasmussen RN Specialty Care CoordinatorHospice & Palliative Agadctpz53/22/24Team Member RelationshipSpecialtyStart DateEnd Date Dick Miranda MD [address] [place] [address] PCP - [facility]04/20/23 Montse Duran RN [address] [place] [address] Registered NurseHouston [facility]10/05/23Team MemberRelationshipSpecialtyStart Date End Date Dick Miranda MD [address] [place] [address] PCP - [facility]04/20/23 Montse Duran RN [address] [place] [address] Registered NurseHouston [facility]10/05/23Team MemberRelationshipSpecialtyStart Date End Date Dick Miranda MD [address] [place] [address] PCP - [facility]04/20/23 Montse Duran RN [address] [place] [address] Registered Nurse[facility]10/05/23Team MemberRelationshipSpecialtyStart Date End Date Dick Miranda MD [address] [place] [address] PCP - [facility]04/20/23 Montse Duran RN [address] [place] [address] Registered Nurse[facility]10/05/23Team MemberRelationshipSpecialtyStart Date End Date Dick Miranda MD [address] [place] [address] PCP - [facility] Medicine04/20/23 Montse Duran RN [address] [place] [address] Registered Nurse[facility]10/05/23Team MemberRelationshipSpecialtyStart Date End Date Dick Miranda MD [address] [place] [address] PCP - [facility]04/20/23 Montse Duran RN [address] [place] [address] Registered Nurse[facility]10/05/23Team MemberRelationshipSpecialtyStart Date End Date Dick Miranda MD [address] [place] [address] PCP - [facility] Medicine10/21/23 Lo Hancock MD [address] [place] [phone] Hematology/Oncology11/04/23 Gerald Abdi MD [address] [place] [place] [address] Hematology/Oncology11/04/23 Olegario Moreira MD [address] [place] [phone] 11/04/23 Lo Hancock MD [address] [place] [address] [place] [address] PhysicianHematology/Oncology11/14/23 Michelle Mejia APRN.[employer] CLEANING HAND [address] [place] [address] Nurse PractitionerHematology/Oncology11/14/23 Noemy Chicas, EWELINA [address] [place] [address] Specialty Care CoordinatorHematology/Oncology11/14/23 Steffany Damian LSW Social Worker11/16/23 Joey Scott, WOOL SHEARER.S[employer] CLEANING HAND [address] [place] [address] [place] [address] Hospice & Palliative Hvrhmdqm45/22/24 Anna Rasmussen RN Specialty Care CoordinatorHospice & Palliative Hplhdeyi01/22/24Team Member RelationshipSpecialtyStart DateEnd Date Dick Miranda MD [address] [place] [address] PCP - GeneralFamily Medicine10/21/23 Lo Hancock MD [address] [place] [address] [place] [address] Hematology/Oncology11/04/23 Gerald Abdi MD [address] [place] [address] [place] [address] Hematology/Oncology11/04/23 Olegario Moreira MD [address] [place] [address] 11/04/23 Lo Hancock MD [address] [place] [address] [place] [address] PhysicianHematology/Oncology11/14/23 Michelle Mejia, WOOL SHEARER.S[employer] CLEANING HAND [address] [place] [address] Nurse PractitionerHematology/Oncology11/14/23 Noemy Chicas, EWELINA [address] [place] [address] Specialty Care CoordinatorHematology/Oncology11/14/23 Steffany Damian LSW Social Worker11/16/23 Joey Scott, WOOL SHEARER.[employer] CLEANING HAND [address] [place] [address] [place] [address] Hospice & Palliative Ewattevs07/22/24 Anna Rasmussen RN Specialty Care CoordinatorHospice & Palliative Kgaabbwk64/22/24Team Member RelationshipSpecialtyStart DateEnd Date Dick Miranda MD [address] [place] [address] PCP - GeneralFamily Medicine04/20/23Team MemberRelationshipSpecialtyStart DateEnd Date Dick Miranda MD [address] [place] [address] PCP - GeneralFamily Medicine04/20/23Team MemberRelationshipSpecialtyStart DateEnd Date Dick Miranda MD [address] [place] [address] PCP - GeneralFamily Medicine04/20/23Team MemberRelationshipSpecialtyStart DateEnd Date Dick Miranda MD [address] [place] [address] PCP - GeneralFamily Medicine04/20/23Team MemberRelationshipSpecialtyStart DateEnd Date Dick Miranda MD PCP - GeneralFamily Medicine09/27/23Team MemberRelationshipSpecialtyStart DateEnd Date Dick Miranda MD PCP - GeneralFamily Medicine09/27/23Team MemberRelationshipSpecialtyStart DateEnd Date Dick Miranda MD [address] [place] [address] PCP - GeneralFamily Medicine04/20/23Team MemberRelationshipSpecialtyStart DateEnd Date Dick Miranda MD [address] [place] [address] PCP - GeneralFamily Medicine04/20/23Team MemberRelationshipSpecialtyStart DateEnd Date Dick Miranda MD [address] [place] [address] PCP - GeneralFamily Medicine04/20/23Team MemberRelationshipSpecialtyStart DateEnd Date Dick Miranda MD [address] [place] [address] PCP - GeneralFamily Medicine04/20/23Team MemberRelationshipSpecialtyStart DateEnd Date Dick Miranda MD PCP - GeneralFamily Medicine09/27/23Team MemberRelationshipSpecialtyStart DateEnd Date Dick Miranda MD [address] [place] [address] PCP - GeneralFamily Medicine04/20/23Team MemberRelationshipSpecialtyStart DateEnd Date Dick Miranda MD [address] [place] [address] PCP - GeneralFamily Medicine04/20/23Team MemberRelationshipSpecialtyStart DateEnd Date Dick Miranda MD [address] [place] [address] PCP - GeneralFamily Medicine04/20/23Team MemberRelationshipSpecialtyStart DateEnd Date Dick Miranda MD [address] [place] [address] PCP - GeneralFamily Medicine04/20/23Team MemberRelationshipSpecialtyStart DateEnd Date Dick Miranda MD [address] [place] [address] PCP - GeneralFamily Medicine10/21/23 Lo Hancock MD [address] [place] [address] [place], [place] 58[address] Hematology/Oncology11/04/23 Gerald Abdi MD [address] [place] [address] Hematology/Oncology11/04/23 Olegario Moreira MD [address] [place] [address] 11/04/23 Lo Hancock MD [address] [place] [address] [place] [address] PhysicianHematology/Oncology11/14/23 Michelle Mejia, WOOL SHEARER.S[employer] CLEANING HAND [address] [place] [address] [place] [address] Nurse PractitionerHematology/Oncology11/14/23 Noemy Chicas, EWELINA [address] [place] [address] Specialty Care CoordinatorHematology/Oncology11/14/23 Steffany Damian LSW Social Worker11/16/23 Joey Scott, WOOL SHEARER.SACK CLEANING HAND [address] [place] [address] Hospice & Palliative Xfdqorde09/22/24 Anna Rasmussen RN Specialty Care CoordinatorHospice & Palliative Fkvqxdif34/22/24Team Member RelationshipSpecialtyStart DateEnd Date Dick Miranda MD [address] [place] [address] PCP - GeneralFamily Medicine10/21/23 Lo Hancock MD [address] [place] [address] Hematology/Oncology11/04/23 Gerald Abdi MD [address] [place] [address] [address] [place], [id number] Hematology/Oncology11/04/23 Olegario Moreira MD [address] [place] [address] [address] [place], [id number] 11/04/23 Lo Hancock MD [address] [place] [address] [address] [place], [id number] PhysicianHematology/Oncology11/14/23 Michelle Mejia, WOOL SHEARER.SACK CLEANING HAND [address] [place] [address] [address] [place], [id number] Nurse PractitionerHematology/Oncology11/14/23 Noemy Chicas, EWELINA [address] [place] [address] [place] [address] Specialty Care CoordinatorHematology/Oncology11/14/23 Steffany Damian LSW Social Worker11/16/23 Joey Scott, WOOL SHEARER.[employer] CLEANING HAND [address] [place] [address] [place] [address] Hospice & Palliative Mfmfjgzd18/22/24 Anna Rasmussen RN Specialty Care CoordinatorHospice & Palliative Uewqzrld44/22/24 Team Status: Active Member Role Status Dates Dick Miranda MD Primary Care Provider Active Team Status: Active Member Role Status Dates Basia Vega MD Primary Care Provider Active Start: August 31, 2024 Melinda Doss NP-CAttending ProviderActiveStart: August 31, 2024 Team Status: Active Member Role Status Dates Dick Miranda MD Primary Care Provider Active S tart: October 27, 2024 Halie Coffman ProviderActiveStart: October 27, 2024 Clarence Stevens DOAdmmatilda ProviderActiveStart: October 27, 2024 Clarence Stevens DOAttending ProviderActiveStart: October 27, 2024 Team Status: Active Member Role Status Dates Dick Miranda MD Primary Care Provider Active S tart: October 27, 2024 Wendy Ochoa MDEmesaturninogensunil ProviderActiveStart: October 27, 2024 Clarence Stevens DOAdmit ProviderActiveStart: October 27, 2024 Clarence Stevens DOOther ProviderActiveStart: October 27, 2024 Enoc Barron MDAttending ProviderActiveStart: October 27, 2024 Enoc Barron MDOther ProviderActiveStart: October 27, 2024 Team MemberRelationshipSpecialtyStart DateEnd Date Dick Miranda MD [address] [place] [address] PCP - GeneralFamily Medicine10/21/23 Lo Hancock MD [address] [place] [address] Hematology/Oncology11/04/23 Gerald Abdi MD [address] [place] [place] [address] Hematology/Oncology11/04/23 Olegario Moreira MD [address] [place] [place] [address] 11/04/23 Lo Hancock MD [address] [place] [place] [address] PhysicianHematology/Oncology11/14/23 Michelle Mejia, ROSA.[employer] CLEANING HAND [address] [place] [address] Nurse PractitionerHematology/Oncology11/14/23 Noemy Chicas, EWELINA [address] [place] [address] Specialty Care CoordinatorHematology/Oncology11/14/23 Steffany Damian LSW Social Worker11/16/23 Joey Scott, ROSA.[employer] CLE[employer] HAND [address] [place] [address] Hospice & Palliative Aayloqcy51/22/24 Anna Rasmussen RN Specialty Care CoordinatorHospice & Palliative Gyhbjmmd70/22/24Team Member RelationshipSpecialtyStart DateEnd Date Dick Miranda MD [address] [place] [address] PCP - GeneralFamily Medicine10/21/23 Lo Hancock MD [address] [place] [address] [place] [address] Hematology/Oncology11/04/23 Gerald Abdi MD [address] [place] [address] [place] [address] Hematology/Oncology11/04/23 Olegario Moreira MD [address] [place] [address] 11/04/23 Lo Hancock MD [address] [place] [address] [place] [address] PhysicianHematology/Oncology11/14/23 Michelle Mejia WOOL SHEARER.[employer] [address] [place] [address] Nurse PractitionerHematology/Oncology11/14/23 Noemy Chicas, EWELINA [address] [place] [address] Specialty Care CoordinatorHematology/Oncology11/14/23 Steffany Damian LSW Social Worker11/16/23 Joey Scott, WOOL SHEARER.[employer] [address] [place] [address] [place] [address] Hospice & Palliative Khydoqgf70/22/24 Anna Rasmussen RN Specialty Care CoordinatorHospice & Palliative Xgddnmyd72/22/24Team Member RelationshipSpecialtyStart DateEnd Date Dick Miranda MD [address] [place] [address] PCP - GeneralFamily Medicine10/21/23 Lo Hancock MD [address] [place] [address] [place] [address] Hematology/Oncology11/04/23 Gerald Abdi MD [address] [place] [address] [place] [address] Hematology/Oncology11/04/23 Olegario Moreira MD [address] [place] [address] [place] [address] 11/04/23 Lo Hancock MD [address] [place] [address] [place] [address] PhysicianHematology/Oncology11/14/23 Michelle Mejia, WOOL SHEARER.[employer] [address] [place] [address] Nurse PractitionerHematology/Oncology11/14/23 Noemy Chicas, EWELINA [address] [place] [address] Specialty Care CoordinatorHematology/Oncology11/14/23 Steffany Damian LSW Social Worker11/16/23 Joey Scott, WOOL SHEARER.[employer] [address] [place] [address] [place] [address] Hospice & Palliative Yltjrsrr72/22/24 Anna Rasmussen RN Specialty Care CoordinatorHospice & Palliative Bqgdldej63/22/24Team Member RelationshipSpecialtyStart DateEnd Date Dick Miranda MD [address] [place] [address] PCP - GeneralFamily Medicine10/21/23 Lo Hancock MD [address] [place] [address] [place] [address] Hematology/Oncology11/04/23 Gerald Abdi MD [address] [place] [address] [place] [address] Hematology/Oncology11/04/23 Olegario Moreira MD [address] [place] [address] 11/04/23 Lo Hancock MD [address] [place] [address] [place] [address] PhysicianHematology/Oncology11/14/23 Michelle Mejia, WOOL SHEARER.[employer] [address] [place] [address] Nurse PractitionerHematology/Oncology11/14/23 Noemy Chicas, EWELINA [address] [place] [address] Specialty Care CoordinatorHematology/Oncology11/14/23 Steffany Damian LSW Social Worker11/16/23 Joey Scott, WOOL SHEARER.[employer] [address] [place] [address] Hospice & Palliative Ovivnink45/22/24 Anna Rasmussen RN Specialty Care CoordinatorHospice & Palliative Xiujemkk10/22/24Team Member RelationshipSpecialtyStart DateEnd Date Dick Miranda MD [address] [place] [address] PCP - GeneralFamily Medicine10/21/23 Lo Hancock MD [address] [place] [address] Hematology/Oncology11/04/23 Gerald Abdi MD [address] [place] [address] Hematology/Oncology11/04/23 Olegario Moreira MD [address] [place] [address] 11/04/23 Lo Hancock MD [address] [place] [address] [place] [address] PhysicianHematology/Oncology11/14/23 Michelle Mejia, ROSA.[employer] [address] [place] [address] Nurse PractitionerHematology/Oncology11/14/23 Noemy Chicas, EWELINA [address] [place] [address] Specialty Care CoordinatorHematology/Oncology11/14/23 Steffany Damian LSW Social Worker11/16/23 Joey Scott APRN.[employer] [address] [place] [address] [place] [address] Hospice & Palliative Mfzynnks51/22/24 Anna Rasmussen RN Specialty Care CoordinatorHospice & Palliative Dwwfiawc57/22/24 Team Status: Active Member Role Status Dates Dick Miranda MD Primary Care Provider Active S tart: November 09, 2024 Doyle Maganaending ProviderActiveStart: November 09, 2024 Team Status: Inactive Member Role Status Dates Dick Miranda MD Primary Care Provider Active S tart: November 21, 2024 End: November 21, 2024[facility] Acosta ProviderActiveStart: November 21, 2024 End: November 21, 2024 Team Status: Active Member Role Status Dates Dick Miranda MD Primary Care Provider Active S tart: November 23, 2024 Lo Hancock MDAttending ProviderActiveStart: November 23, 2024 Team Status: Active Member Role Status Dates Dick Miranda MD Primary Care Provider Active S tart: December 07, 2024 Lo Hancock MDAttending ProviderActiveStart: December 07, 2024 Team Status: Inactive Member Role Status Dates Dick Miranda MD Primary Care Provider Active S tart: December 10, 2024 End: December 10, 2024Marc Doyle Mirandaending ProviderActiveStart: December 10, 2024 End: December 10, 2024 Source Comments (unrecognize d section and content) In the event this informatio n is protected by the Federal Confidentiality of Alcohol and Drug Abuse Patient Records regulations: The Federal rules restrict any use of the information to criminally investigate or prosecute any alcohol or drug abuse patient.[facility] ShawIn the event this information is protected by the Federal Confidentiality of Alcohol and Drug Abuse Patient Records regulations: The Federal rules restrict any use of the information to criminally investigate or prosecute any alcohol or drug abuse patient.[facility] ShawIn the event this information is protected by the Federal Confidentiality of Alcohol and Drug Abuse Patient Records regulations: The Federal rules restrict any use of the information to criminally investigate or prosecute any alcohol or drug abuse patient.[facility] ShawIn the event this information is protected by the Federal Confidentiality of Alcohol and Drug Abuse Patient Records regulations: The Federal rules restrict any use of the information to criminally investigate or prosecute any alcohol or drug abuse patient.[facility] ShawIn the event this information is protected by the Federal Confidentiality of Alcohol and Drug Abuse Patient Records regulations: The Federal rules restrict any use of the information to criminally investigate or prosecute any alcohol or drug abuse patient.[facility] ShawIn the event this information is protected by the Federal Confidentiality of Alcohol and Drug Abuse Patient Records regulations: The Federal rules restrict any use of the information to criminally investigate or prosecute any alcohol or drug abuse patient.[facility] ShawIn the event this information is protected by the Federal Confidentiality of Alcohol and Drug Abuse Patient Records regulations: The Federal rules restrict any use of the information to criminally investigate or prosecute any alcohol or drug abuse patient.[facility] ShawIn the event this information is protected by the Federal Confidentiality of Alcohol and Drug Abuse Patient Records regulations: The Federal rules restrict any use of the information to criminally investigate or prosecute any alcohol or drug abuse patient.[facility] ShawIn the event this information is protected by the Federal Confidentiality of Alcohol and Drug Abuse Patient Records regulations: The Federal rules restrict any use of the information to criminally investigate or prosecute any alcohol or drug abuse patient.[facility] ShawIn the event this information is protected by the Federal Confidentiality of Alcohol and Drug Abuse Patient Records regulations: The Federal rules restrict any use of the information to criminally investigate or prosecute any alcohol or drug abuse patient.[facility] ShawIn the event this information is protected by the Federal Confidentiality of Alcohol and Drug Abuse Patient Records regulations: The Federal rules restrict any use of the information to criminally investigate or prosecute any alcohol or drug abuse patient.[facility] ShawIn the event this information is protected by the Federal Confidentiality of Alcohol and Drug Abuse Patient Records regulations: The Federal rules restrict any use of the information to criminally investigate or prosecute any alcohol or drug abuse patient.[facility] ShawIn the event this information is protected by the Federal Confidentiality of Alcohol and Drug Abuse Patient Records regulations: The Federal rules restrict any use of the information to criminally investigate or prosecute any alcohol or drug abuse patient.[facility] ShawIn the event this information is protected by the Federal Confidentiality of Alcohol and Drug Abuse Patient Records regulations: The Federal rules restrict any use of the information to criminally investigate or prosecute any alcohol or drug abuse patient.[facility] ShawIn the event this information is protected by the Federal Confidentiality of Alcohol and Drug Abuse Patient Records regulations: The Federal rules restrict any use of the information to criminally investigate or prosecute any alcohol or drug abuse patient.[facility] ShawIn the event this information is protected by the Federal Confidentiality of Alcohol and Drug Abuse Patient Records regulations: The Federal rules restrict any use of the information to criminally investigate or prosecute any alcohol or drug abuse patient.[facility] ShawIn the event this information is protected by the Federal Confidentiality of Alcohol and Drug Abuse Patient Records regulations: The Federal rules restrict any use of the information to criminally investigate or prosecute any alcohol or drug abuse patient.[facility] ShawIn the event this information is protected by the Federal Confidentiality of Alcohol and Drug Abuse Patient Records regulations: The Federal rules restrict any use of the information to criminally investigate or prosecute any alcohol or drug abuse patient.[facility] ShawIn the event this information is protected by the Federal Confidentiality of Alcohol and Drug Abuse Patient Records regulations: The Federal rules restrict any use of the information to criminally investigate or prosecute any alcohol or drug abuse patient.[facility] ShawIn the event this information is protected by the Federal Confidentiality of Alcohol and Drug Abuse Patient Records regulations: The Federal rules restrict any use of the information to criminally investigate or prosecute any alcohol or drug abuse patient.[facility] ShawIn the event this information is protected by the Federal Confidentiality of Alcohol and Drug Abuse Patient Records regulations: The Federal rules restrict any use of the information to criminally investigate or prosecute any alcohol or drug abuse patient.[facility] ShawIn the event this information is protected by the Federal Confidentiality of Alcohol and Drug Abuse Patient Records regulations: The Federal rules restrict any use of the information to criminally investigate or prosecute any alcohol or drug abuse patient.[facility] ShawIn the event this information is protected by the Federal Confidentiality of Alcohol and Drug Abuse Patient Records regulations: The Federal rules restrict any use of the information to criminally investigate or prosecute any alcohol or drug abuse patient.[facility] ShawIn the event this information is protected by the Federal Confidentiality of Alcohol and Drug Abuse Patient Records regulations: The Federal rules restrict any use of the information to criminally investigate or prosecute any alcohol or drug abuse patient.[facility] ShawIn the event this information is protected by the Federal Confidentiality of Alcohol and Drug Abuse Patient Records regulations: The Federal rules restrict any use of the information to criminally investigate or prosecute any alcohol or drug abuse patient.[facility] ShawIn the event this information is protected by the Federal Confidentiality of Alcohol and Drug Abuse Patient Records regulations: The Federal rules restrict any use of the information to criminally investigate or prosecute any alcohol or drug abuse patient.[facility] ShawIn the event this information is protected by the Federal Confidentiality of Alcohol and Drug Abuse Patient Records regulations: The Federal rules restrict any use of the information to criminally investigate or prosecute any alcohol or drug abuse patient.[facility] ShawIn the event this information is protected by the Federal Confidentiality of Alcohol and Drug Abuse Patient Records regulations: The Federal rules restrict any use of the information to criminally investigate or prosecute any alcohol or drug abuse patient.[facility] ShawIn the event this information is protected by the Federal Confidentiality of Alcohol and Drug Abuse Patient Records regulations: The Federal rules restrict any use of the information to criminally investigate or prosecute any alcohol or drug abuse patient.[facility] ShawIn the event this information is protected by the Federal Confidentiality of Alcohol and Drug Abuse Patient Records regulations: The Federal rules restrict any use of the information to criminally investigate or prosecute any alcohol or drug abuse patient.[facility] ShawIn the event this information is protected by the Federal Confidentiality of Alcohol and Drug Abuse Patient Records regulations: The Federal rules restrict any use of the information to criminally investigate or prosecute any alcohol or drug abuse patient.[facility] ShawIn the event this information is protected by the Federal Confidentiality of Alcohol and Drug Abuse Patient Records regulations: The Federal rules restrict any use of the information to criminally investigate or prosecute any alcohol or drug abuse patient.[facility] ShawIn the event this information is protected by the Federal Confidentiality of Alcohol and Drug Abuse Patient Records regulations: The Federal rules restrict any use of the information to criminally investigate or prosecute any alcohol or drug abuse patient.[facility] ShawIn the event this information is protected by the Federal Confidentiality of Alcohol and Drug Abuse Patient Records regulations: The Federal rules restrict any use of the information to criminally investigate or prosecute any alcohol or drug abuse patient.[facility] ShawIn the event this information is protected by the Federal Confidentiality of Alcohol and Drug Abuse Patient Records regulations: The Federal rules restrict any use of the information to criminally investigate or prosecute any alcohol or drug abuse patient.[facility] ShawIn the event this information is protected by the Federal Confidentiality of Alcohol and Drug Abuse Patient Records regulations: The Federal rules restrict any use of the information to criminally investigate or prosecute any alcohol or drug abuse patient.[facility] ShawIn the event this information is protected by the Federal Confidentiality of Alcohol and Drug Abuse Patient Records regulations: The Federal rules restrict any use of the information to criminally investigate or prosecute any alcohol or drug abuse patient.[facility] ShawIn the event this information is protected by the Federal Confidentiality of Alcohol and Drug Abuse Patient Records regulations: The Federal rules restrict any use of the information to criminally investigate or prosecute any alcohol or drug abuse patient.[facility] ShawIn the event this information is protected by the Federal Confidentiality of Alcohol and Drug Abuse Patient Records regulations: The Federal rules restrict any use of the information to criminally investigate or prosecute any alcohol or drug abuse patient.[facility] ShawIn the event this information is protected by the Federal Confidentiality of Alcohol and Drug Abuse Patient Records regulations: The Federal rules restrict any use of the information to criminally investigate or prosecute any alcohol or drug abuse patient.[facility] ShawIn the event this information is protected by the Federal Confidentiality of Alcohol and Drug Abuse Patient Records regulations: The Federal rules restrict any use of the information to criminally investigate or prosecute any alcohol or drug abuse patient.[facility] ShawIn the event this information is protected by the Federal Confidentiality of Alcohol and Drug Abuse Patient Records regulations: The Federal rules restrict any use of the information to criminally investigate or prosecute any alcohol or drug abuse patient.[facility] ShawIn the event this information is protected by the Federal Confidentiality of Alcohol and Drug Abuse Patient Records regulations: The Federal rules restrict any use of the information to criminally investigate or prosecute any alcohol or drug abuse patient.[facility] ShawIn the event this information is protected by the Federal Confidentiality of Alcohol and Drug Abuse Patient Records regulations: The Federal rules restrict any use of the information to criminally investigate or prosecute any alcohol or drug abuse patient.[facility] ShawIn the event this information is protected by the Federal Confidentiality of Alcohol and Drug Abuse Patient Records regulations: The Federal rules restrict any use of the information to criminally investigate or prosecute any alcohol or drug abuse patient.[facility] ShawIn the event this information is protected by the Federal Confidentiality of Alcohol and Drug Abuse Patient Records regulations: The Federal rules restrict any use of the information to criminally investigate or prosecute any alcohol or drug abuse patient.[facility] ShawIn the event this information is protected by the Federal Confidentiality of Alcohol and Drug Abuse Patient Records regulations: The Federal rules restrict any use of the information to criminally investigate or prosecute any alcohol or drug abuse patient.[facility] ShawIn the event this information is protected by the Federal Confidentiality of Alcohol and Drug Abuse Patient Records regulations: The Federal rules restrict any use of the information to criminally investigate or prosecute any alcohol or drug abuse patient.[facility] ShawIn the event this information is protected by the Federal Confidentiality of Alcohol and Drug Abuse Patient Records regulations: The Federal rules restrict any use of the information to criminally investigate or prosecute any alcohol or drug abuse patient.[facility] ShawIn the event this information is protected by the Federal Confidentiality of Alcohol and Drug Abuse Patient Records regulations: The Federal rules restrict any use of the information to criminally investigate or prosecute any alcohol or drug abuse patient.[facility] ShawIn the event this information is protected by the Federal Confidentiality of Alcohol and Drug Abuse Patient Records regulations: The Federal rules restrict any use of the information to criminally investigate or prosecute any alcohol or drug abuse patient.[facility] ShawIn the event this information is protected by the Federal Confidentiality of Alcohol and Drug Abuse Patient Records regulations: The Federal rules restrict any use of the information to criminally investigate or prosecute any alcohol or drug abuse patient.[facility] ShawIn the event this information is protected by the Federal Confidentiality of Alcohol and Drug Abuse Patient Records regulations: The Federal rules restrict any use of the information to criminally investigate or prosecute any alcohol or drug abuse patient.[facility] ShawIn the event this information is protected by the Federal Confidentiality of Alcohol and Drug Abuse Patient Records regulations: The Federal rules restrict any use of the information to criminally investigate or prosecute any alcohol or drug abuse patient.[facility] ShawIn the event this information is protected by the Federal Confidentiality of Alcohol and Drug Abuse Patient Records regulations: The Federal rules restrict any use of the information to criminally investigate or prosecute any alcohol or drug abuse patient.[facility] ShawIn the event this information is protected by the Federal Confidentiality of Alcohol and Drug Abuse Patient Records regulations: The Federal rules restrict any use of the information to criminally investigate or prosecute any alcohol or drug abuse patient.[facility] ShawIn the event this information is protected by the Federal Confidentiality of Alcohol and Drug Abuse Patient Records regulations: The Federal rules restrict any use of the information to criminally investigate or prosecute any alcohol or drug abuse patient.[facility] ShawIn the event this information is protected by the Federal Confidentiality of Alcohol and Drug Abuse Patient Records regulations: The Federal rules restrict any use of the information to criminally investigate or prosecute any alcohol or drug abuse patient.[facility] ShawIn the event this information is protected by the Federal Confidentiality of Alcohol and Drug Abuse Patient Records regulations: The Federal rules restrict any use of the information to criminally investigate or prosecute any alcohol or drug abuse patient.[facility] ShawIn the event this information is protected by the Federal Confidentiality of Alcohol and Drug Abuse Patient Records regulations: The Federal rules restrict any use of the information to criminally investigate or prosecute any alcohol or drug abuse patient.[facility] ShawIn the event this information is protected by the Federal Confidentiality of Alcohol and Drug Abuse Patient Records regulations: The Federal rules restrict any use of the information to criminally investigate or prosecute any alcohol or drug abuse patient.[facility] ShawIn the event this information is protected by the Federal Confidentiality of Alcohol and Drug Abuse Patient Records regulations: The Federal rules restrict any use of the information to criminally investigate or prosecute any alcohol or drug abuse patient.[facility] ShawIn the event this information is protected by the Federal Confidentiality of Alcohol and Drug Abuse Patient Records regulations: The Federal rules restrict any use of the information to criminally investigate or prosecute any alcohol or drug abuse patient.[facility] ShawIn the event this information is protected by the Federal Confidentiality of Alcohol and Drug Abuse Patient Records regulations: The Federal rules restrict any use of the information to criminally investigate or prosecute any alcohol or drug abuse patient.[facility] ShawIn the event this information is protected by the Federal Confidentiality of Alcohol and Drug Abuse Patient Records regulations: The Federal rules restrict any use of the information to criminally investigate or prosecute any alcohol or drug abuse patient.[facility], [facility] ShawIn the event this information is protected by the Federal Confidentiality of Alcohol and Drug Abuse Patient Records regulations: The Federal rules restrict any use of the information to criminally investigate or prosecute any alcohol or drug abuse patient.[facility] ShawIn the event this information is protected by the Federal Confidentiality of Alcohol and Drug Abuse Patient Records regulations: The Federal rules restrict any use of the information to criminally investigate or prosecute any alcohol or drug abuse patient.[facility] ShawIn the event this information is protected by the Federal Confidentiality of Alcohol and Drug Abuse Patient Records regulations: The Federal rules restrict any use of the information to criminally investigate or prosecute any alcohol or drug abuse patient.[facility] ShawIn the event this information is protected by the Federal Confidentiality of Alcohol and Drug Abuse Patient Records regulations: The Federal rules restrict any use of the information to criminally investigate or prosecute any alcohol or drug abuse patient.[facility] ShawIn the event this information is protected by the Federal Confidentiality of Alcohol and Drug Abuse Patient Records regulations: The Federal rules restrict any use of the information to criminally investigate or prosecute any alcohol or drug abuse patient.[facility] ShawIn the event this information is protected by the Federal Confidentiality of Alcohol and Drug Abuse Patient Records regulations: The Federal rules restrict any use of the information to criminally investigate or prosecute any alcohol or drug abuse patient.[facility] ShawIn the event this information is protected by the Federal Confidentiality of Alcohol and Drug Abuse Patient Records regulations: The Federal rules restrict any use of the information to criminally investigate or prosecute any alcohol or drug abuse patient.[facility] ShawIn the event this information is protected by the Federal Confidentiality of Alcohol and Drug Abuse Patient Records regulations: The Federal rules restrict any use of the information to criminally investigate or prosecute any alcohol or drug abuse patient.[facility] ShawIn the event this information is protected by the Federal Confidentiality of Alcohol and Drug Abuse Patient Records regulations: The Federal rules restrict any use of the information to criminally investigate or prosecute any alcohol or drug abuse patient.[facility] ShawIn the event this information is protected by the Federal Confidentiality of Alcohol and Drug Abuse Patient Records regulations: The Federal rules restrict any use of the information to criminally investigate or prosecute any alcohol or drug abuse patient.[facility] ShawIn the event this information is protected by the Federal Confidentiality of Alcohol and Drug Abuse Patient Records regulations: The Federal rules restrict any use of the information to criminally investigate or prosecute any alcohol or drug abuse patient.[facility] ShawIn the event this information is protected by the Federal Confidentiality of Alcohol and Drug Abuse Patient Records regulations: The Federal rules restrict any use of the information to criminally investigate or prosecute any alcohol or drug abuse patient.[facility] ShawIn the event this information is protected by the Federal Confidentiality of Alcohol and Drug Abuse Patient Records regulations: The Federal rules restrict any use of the information to criminally investigate or prosecute any alcohol or drug abuse patient.[facility] ShawIn the event this information is protected by the Federal Confidentiality of Alcohol and Drug Abuse Patient Records regulations: The Federal rules restrict any use of the information to criminally investigate or prosecute any alcohol or drug abuse patient.[facility] ShawIn the event this information is protected by the Federal Confidentiality of Alcohol and Drug Abuse Patient Records regulations: The Federal rules restrict any use of the information to criminally investigate or prosecute any alcohol or drug abuse patient.[facility] ShawIn the event this information is protected by the Federal Confidentiality of Alcohol and Drug Abuse Patient Records regulations: The Federal rules restrict any use of the information to criminally investigate or prosecute any alcohol or drug abuse patient.[facility] ShawIn the event this information is protected by the Federal Confidentiality of Alcohol and Drug Abuse Patient Records regulations: The Federal rules restrict any use of the information to criminally investigate or prosecute any alcohol or drug abuse patient.[facility] ShawIn the event this information is protected by the Federal Confidentiality of Alcohol and Drug Abuse Patient Records regulations: The Federal rules restrict any use of the information to criminally investigate or prosecute any alcohol or drug abuse patient.[facility] ShawIn the event this information is protected by the Federal Confidentiality of Alcohol and Drug Abuse Patient Records regulations: The Federal rules restrict any use of the information to criminally investigate or prosecute any alcohol or drug abuse patient.[facility] ShawIn the event this information is protected by the Federal Confidentiality of Alcohol and Drug Abuse Patient Records regulations: The Federal rules restrict any use of the information to criminally investigate or prosecute any alcohol or drug abuse patient.[facility] ShawIn the event this information is protected by the Federal Confidentiality of Alcohol and Drug Abuse Patient Records regulations: The Federal rules restrict any use of the information to criminally investigate or prosecute any alcohol or drug abuse patient.[facility] ShawIn the event this information is protected by the Federal Confidentiality of Alcohol and Drug Abuse Patient Records regulations: The Federal rules restrict any use of the information to criminally investigate or prosecute any alcohol or drug abuse patient.[facility] ShawIn the event this information is protected by the Federal Confidentiality of Alcohol and Drug Abuse Patient Records regulations: The Federal rules restrict any use of the information to criminally investigate or prosecute any alcohol or drug abuse patient.[facility] ShawIn the event this information is protected by the Federal Confidentiality of Alcohol and Drug Abuse Patient Records regulations: The Federal rules restrict any use of the information to criminally investigate or prosecute any alcohol or drug abuse patient.[facility] ShawIn the event this information is protected by the Federal Confidentiality of Alcohol and Drug Abuse Patient Records regulations: The Federal rules restrict any use of the information to criminally investigate or prosecute any alcohol or drug abuse patient.[facility] ShawIn the event this information is protected by the Federal Confidentiality of Alcohol and Drug Abuse Patient Records regulations: The Federal rules restrict any use of the information to criminally investigate or prosecute any alcohol or drug abuse patient.[facility] Goals (unrecognized section and content) Goals may be documented in a n alternate section Type Treatment Intervention Code Status: Full Code FOR RECORDS PERTAINING TO PATIENTS WHO ARE OR HAVE BEEN ENROLLED IN A CHEMICAL DEPENDENCY/SUBSTANCEABUSE PROGRAM, SOME INFORMATION MAY BE OMITTED. This clinical summary was aggregated from multiple sources. Caution should be exercised in using it in the provision of clinical care. This summary normalizes information from multiple sources, and as a consequence, information in this document may materially change the coding, format and clinical context of patient data. In addition, data may be omitted in some cases. CLINICAL DECISIONS SHOULD BE BASED ON THE PRIMARY CLINICAL RECORDS. [facility] [employer] [facility]. provides no warranty or guarantee of the accuracy or completeness of information in this document.
--- OUTSIDE RECORDS SUMMARY | 2024-12-31 15:00 | XMS_ITS | Clinical Summary ---
Author Organization [employer] tem Address [id number] [address] [place] [address] Care Team Providers Care Cake Knocker Name Role Phone Dick Boss MD Primary Care Provider [phone] Allergies Active AllergyReactionsCriticalityNoted DateCommentsSulfa (Sulfonamide Antibiotics)07/17/2018 Medications MedicationSigDispense QuantityRefillsLast FilledStart DateEnd DateStatus SYNTHROID 175 mcg tablet Take 1 tablet (175 mcg total) by mouth in the morning.Active atorvastatin (LIPITOR) 40 mg tablet Take 1 tablet (40 mg total) by mouth in the morning.Active HYDROcodone-acetaminophen (XODOL) 7.5-300 mg per tablet Take 1 tablet by mouth every 6 (six) hours as needed for pain.Active multivit-minerals/ferrous fum (MULTI VITAMIN ORAL) Take by mouth. d3 100u and e 180 dailyActive ascorbic acid (VITAMIN C) 500 mg tablet Take 1 tablet (500 mg total) by mouth in the morning.Active krill oil 500 mg capsule Take by mouth.Active cetirizine (ZyrTEC) 10 mg tablet Take 1 tablet (10 mg total) by mouth in the morning.Active terazosin (HYTRIN) 1 mg capsule Take 1 capsule (1 mg total) by mouth nightly.Active vitamin E 100 units capsule Take 4 capsules (400 Units total) by mouth in the morning. 20 IU .Active cholecalciferol (VITAMIN D3) 1,000 units tablet Take 1 tablet (1,000 Units total) by mouth in the morning.Active losartan (COZAAR) 100 mg tablet Take 1 tablet (100 mg total) by mouth in the morning.Active hydroCHLOROthiazide (HYDRODIURIL) 50 mg tablet Take 1 tablet (50 mg total) by mouth daily.Active metFORMIN (GLUCOPHAGE) 850 mg tablet Take 1 tablet (850 mg total) by mouth Daily after lunch. 60 tablet 4Active albuterol (PROVENTIL HFA;VENTOLIN HFA) 90 mcg/actuation inhaler Indications:Chronic obstructive pulmonary disease, unspecified COPD type (CMS-HCC)Inhale 2 puffs every 6 (six) hours as needed for wheezing. 18 g 1104Active tiotropium bromide (SPIRIVA RESPIMAT) 2.5 mcg/actuation mist Indications:Chronic obstructive pulmonary disease, unspecified COPD type (CMS-HCC)Inhale 2 puffs in the morning. 4 g 4Active gabapentin (NEURONTIN) 100 mg capsule Take 1 capsule (100 mg total) by mouth once daily at bedtime. Pt is only taking one tablet a day.4Active pregabalin (LYRICA) 75 mg capsule Take 1 capsule (75 mg total) by mouth in the morning.4Active propranoloL (INDERAL) 20 mg tablet Take 1 tablet (20 mg total) by mouth 3 (three) times a day.Active aspirin 81 mg Indications:Essential hypertension,Bilateral carotid artery stenosis,Occlusive disease, arterialTAKE 1 TABLET (81 MG TOTAL) BY MOUTH IN THE MORNING 90 tablet 5Active amLODIPine (NORVASC) 10 mg tablet Take 1 tablet (10 mg total) by mouth in the morning.5Active traZODone (DESYREL) 100 mg tablet Take 1 tablet (100 mg total) by mouth.Active diazePAM (VALIUM) 5 mg tablet Take 1 tablet (5 mg total) by mouth Three times daily as needed.5Active meloxicam (MOBIC) 7.5 mg tablet Take 1 tablet (7.5 mg total) by mouth in the morning.Active clopidogreL (PLAVIX) 75 mg tablet Indications:Essential hypertension,Bilateral carotid artery stenosis,Occlusive disease, arterialTAKE 1 TABLET BY MOUTH EVERY DAY IN THE MORNING 90 tablet 5Active Active Problems ProblemNoted DateDiagnosed DateMixed olalpivurhrcob95/30/2024Malignant neoplasm of upper lobe of left lung12/09/2024Chemotherapy-induced atimyhlnpz52/24/2024 Chronic obstructive pulmonary qeyekwv9110/20/2023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10/12/2023 Overview (04/18/2024): Last Assessment & Plan: Pathology showed cancer and follow up with oncology as scheduled. Left-sided mpjtpmsi44/23/2024enign prostatic hyperplasia with lower urinary tract qbmskzei76/11/2023 Overview (04/18/2024): Last Assessment & Plan: Occasional symptoms but tolerable and continue terazosin. Lnqirqwnhmjw61/28/2022Occlusive disease, spxpksma49/28/2022AD (peripheral artery disease)05/04/2021 Overview (04/18/2024): Last Assessment & Plan: Symptoms stable and follow up with vascular. Bilateral carotid artery vgdlshge10/23/2021Temporal decrzmsjupjkl62/16/2019 Amvafzagnnkcxa19/13/2019Postviral fatigue wvixjlcg54/13/2019Essential dkqdwqkpddzo05/13/2019Infectious colitis, enteritis and gastroenteritis 07/17/2018Hypothyroidism, postradioiodine aymuqzi8104/29/2016 Overview (04/18/2024): Last Assessment & Plan: Medication adjusted and repeat labs next month. 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 [employer] Essential hypertension; Bilateral carotid artery stenosis; Occlusive disease, arterialfrom Last 3 Months Family History Medical HistoryRelationNameCommentsHeart diseaseFatherHypertensionFatherStroke MotherRelationNameStatusCommentsFatherDeceasedMotherDeceased Social History Tobacco UseTypesPacks/DayYears UsedDateSmoking Tobacco: FormerCigarettes0.850.6 1973 - 09/29/2023Smokeless Tobacco: Never Tobacco Cessation:Counseling Given: Not Answered Alcohol UseStandard Drinks/WeekCommentsYes0 (1 standard drink = 0.6 oz pure alcohol)moderateAHC UtilitiesAnswerDate RecordedIn the past 12 months has the [employer], gas, oil, or water [employer] threatened to shut off services in your home?No09/27/2023RAPARE - TransportationAnswerDate RecordedIn the past 12 months, has lack of transportation kept you from medical appointments or from getting medications?No09/27/2023In the past 12 months, has lack of transportation kept you from meetings, work, or from getting things needed for daily living?No09/27/2023Housing InstabilityAnswerDate RecordedAre you worried or concerned that in the next two months you may not have stable housing that you own, rent or stay in as a part of a household?No09/27/2023hildcareAnswer Date KmjrsrlnMkjnzbhfvAnhonas12/12/2019EmploymentAnswerDate RecordedEmployment Pitogsi9808/16/2018Hunger ScreeningAnswerDate RecordedWithin the past 12 months we worried whether our food would run out before we got money to buy more.Never True09/26/2024Within the past 12 months the food we bought just didn't last and we didn't have money to get more.Never True09/26/2024Purpose - LifeAnswerDate RecordedPurpose and direction in tqgiJcgguxz63/11/2021ex and Gender Information ValueDate RecordedSex Assigned at BirthNot on fileLegal MlnYsdv8710/10/2014 11:24 AM EDTGender IdentityNot on fileSexual OrientationNot on file Last Filed Vital Signs Vital SignReadingTime TakenCommentsBlood Buwfdmzp347/6807 1:36 PM EDT Xhkov361509/26/2024 1:36 PM PCAWylmppegplz48.8 ??C (98.2 ??F)07/31/2024 4:02 PM EDTRespiratory Phjp043607/31/2024 4:45 PM EDTOxygen Ahrpiikmzi37%09/26/2024 1:36 PM EDTInhaled Oxygen Concentration--Scgnyh96.8 kg (176 lb)09/26/2024 1:36 PM EDT Yckcgp575.6 cm (5' 6 )09/26/2024 1:36 PM EDTBody Mass Index28.41009/26/2024 1:36 PM EDT Plan of Treatment DateTypeDepartmentCare Team (Latest Contact Info)Mwepnvkocnu40/04/2025 8:[address] [facility] [address] [place] [address] Bina Resendiz, DO [address] [place] [address] 02/11/2025 9:30 AM ESTOffice Visit [facility] [address] [place] [address] Bina Resendiz, DO [address] [place] [address] Health MaintenanceDue DateLast DoneCommentsStatin Use: Sayxtzhsbbeehc60/29/1956 Depression Eoqbdgljf66/29/1968Adult BMI Follow Up Plan12/03/1973DTaP,Tdap and Td Vaccines (1 - Tdap)12/03/1974Abdominal Aortic Aneurysm (AAA) Ujybbu5812/03/2020 Fall Risk Lfcklpxvx86/29/2021OVID-19 Vaccine ( season)2024 02/18/2021, 06/02/2020, 05/02/2020Influenza Vjatvzw7011/05/2024dult BMI Screening Tobacco Ganjexagd46/23/97946509/26/2024Zoster (Shingles) MkewrpaYskveyhed27/16/2019, 07/02/2018 Goals GoalPatient Goal TypeAssociated ProblemsRecent ProgressPatient-Stated?Author Home Faith Lowry MSW Note: Evaluation of progress towards goal: In progress: Would like to DC to home today, await further tests and consults prior to DC Medical Devices Not on file Insurance Advance Directives * Full Code (Latest Code Status on File) Date ActivatedDate InactivatedComments09/27/2023 6:42 PM09/29/2023 6:35 PM Care Teams Team MemberRelationshipSpecialtyStart DateEnd Date Dick Boss MD PCP - GeneralFamily Medicine09/27/23
--- OUTSIDE RECORDS SUMMARY | 2024-12-31 15:00 | XMS_ITS | Encounter Summary ---
Author Organization [facility] Address [address] [place] [address] Care Team Providers Care Product Marketing Coordinator Name Role Phone Dick Boss MD Primary Care Provider [phone] Preston Lucio MD Unavailable [phone] Gerald Dumont MD Unavailable Kathy Ruiz MD Unavailable [phone] Preston Lucio MD Unavailable [phone] Michelle Galvez CINDER WORKER.STATION MANAGER Unavailable [phone] Noemy Chicas RN Unavailable [phone] Steffany Damian Unavailable Unavailable Valorie Fernandez CINDER WORKER.STATION MANAGER Unavailable + Anna Rasmussen RN Unavailable Unavail able Source Comments In the event this information is protected by the Federal Confidentiality of Alcohol and Drug AbusePatient Records regulations: The Federal rules restrict any use of the information to criminally investigate or prosecute any alcohol or drug abuse patient.[facility] Reason for Visit * ReasonCommentsCare CoordinationLung Pain Encounter Details DateTypeDepartmentCare Team (Latest Contact Info)Tczyvzyxtge46/13/2025Telephone Hematology/Oncology [address] [place] [address] Noemy Chicas, RN [address] [place] [address] Care Coordination (Lung Pain) Social History Tobacco UseTypesPacks/DayYears UsedDateSmoking Tobacco: FormerCigarettes0.550 09/22/1973 - 09/23/2023assive Smoke Exposure: CurrentSmokeless Tobacco: Never Comments:Quit September 26 Alcohol UseStandard Drinks/WeekCommentsNo0 (1 standard drink = 0.6 oz pure alcohol)PHQ-2AnswerDate RecordedPHQ-2 xnoqi873rea Deprivation Index AnswerDate RecordedNational Score (1-100), lower number is lower risk75 10/21/2023State Score (1-10), lower number is lower kuty88810/21/2023ata from: https://www.neighborhoodatlas.[facility].edu/. Last address used for pmekxfyazhc[address] [place], [place] [address]/21/2023Sex and Gender InformationValueDate RecordedSex Assigned at BirthNot on fileLegal WafYbjy81/02/2012 10:16 AM EST Gender IdentityNot on fileSexual OrientationNot on filedocumented as of this encounter Functional Status * Are you deaf or do you have serious difficulty hearing?AnswerDate of WipqtfumwbQgamupBk80/23/2015 11:07 AM Liliya Hatch MA * Are you blind or do you have serious difficulty seeing, even when wearing glasses?AnswerDate of WxhrtzxrjzDwdbjnXw39/23/2015 11:07 AM Liliya Hatch MA * Do you have serious difficulty walking or climbing stairs?AnswerDate of PnkopvgotqIunndpNd23/23/2015 11:07 AM Liliya Hatch MA * Do you have difficulty dressing or bathing?AnswerDate of AssessmentAuthorNo 08/27/2014 11:07 AM Liliya Hatch MA * Because of a physical, mental, or emotional condition, do you have difficulty doing errands alone such as visiting a doctor's office or shopping?AnswerDate of LktfhxnwmhRzrtalCh93/23/2015 11:07 AM Liliya Hatch MA documented as of this encounter Mental Status * Because of a physical, mental, or emotional condition, do you have serious difficulty concentrating, remembering, or making decisions?AnswerEntry Date UuxepjNf89/23/2015 11:07 AM Liliya Hatch MA documented in this encounter Miscellaneous Notes * Telephone Encounter - Noemy Chicas RN - 12/17/2024 11:27 AM EDT Pt notified and verbalizes understanding. Will need a new script sent to [facility] in [place]. Edilson/CRIS: Prednisone RX pended. Noemy Chicas RN * Telephone Encounter - Tianna King PA-C - 12/17/2024 11:06 AM EDT He can go back to 10 mg daily and see if it helps. Tianna King PA-C * Telephone Encounter - Noemy Chicas RN - 12/17/2024 10:58 AM EDT Pt completed his Prednisone taper (5 mg/day) on Tuesday. Notes his left lung pain has worsened sincethat time. Taking Lyrica 75 mg BID and [place] 3 tabs/day. Reports his pain was tolerable while taking Prednisone 5 mg/day - even more controlled at a higher steroid dose. What would you advise? 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 Malignant neoplasm of unspecified part of unspecified bronchus or lung (HCC) Neuralgia Neuralgia, neuritis, and radiculitis, unspecified documented in this encounter Care Teams Team MemberRelationshipSpecialtyStart DateEnd Date Dick Boss MD [address] [place] [address] PCP - GeneralFamily Medicine10/21/23 Preston Lucio MD [address] [place] [address] [place] [address] Hematology/Oncology11/04/23 Gerald Dumont MD [address] [place] [address] [place] [address] Hematology/Oncology11/04/23 Kathy Ruiz MD [address] [place] [address] [place] [address] 11/04/23 Preston Lucio MD [address] [place] [address] [place] [address] PhysicianHematology/Oncology11/14/23 Michelle Galvez, ROSA.STATION MANAGER [address] [place] [address] [place] [address] Nurse PractitionerHematology/Oncology11/14/23 Noemy Chicas, EWELINA [address] [place] [address] [place] [address] Specialty Care CoordinatorHematology/Oncology11/14/23 Steffany Damian LSW Social Worker11/16/23 Valorie Fernandez, CINDER WORKER.[facility] [address] [place] [address] [place] [address] Hospice & Palliative Cqgooimg97/22/24 Anna Rasmussen RN Specialty Care CoordinatorHospice & Palliative Snokbxcc70/22/24documented as of this encounter
--- OUTSIDE RECORDS SUMMARY | 2024-12-31 15:00 | XMS_ITS | Clinical Summary ---
Author Organization [facility] Address [address] [place] [address] Care Team Providers Care Chief Operator Reformer Name Role Phone Dick Boss MD Primary Care Provider [phone] Allergies Active AllergyReactionsCriticalityNoted YptpIlxcaiuoYhgnmojblvZsnhx30/24/2024 Tiotropium BromideShortness of ulbhvpHtoh92/20/2024 Pt reported having increased shortness of breath after trying med 1 time. Sulfa AntibioticsUnknown,WkmmPvad84/10/2012 Unkown, was a child Medications MedicationSigDispense QuantityRefillsLast FilledStart DateEnd DateStatus propranolol (Inderal) 20 MG tablet TAKE 1 TABLET BY MOUTH NEEDED FOR ANXIETY ATTACKS ONCE A DAY12/25/2021ctive ascorbic acid (Vitamin C) 500 MG tablet Take 500 mg by mouth in the morning.Active aspirin 81 MG EC tablet Take 81 mg by mouth in the morning.Active Krill Oil (Stites-3) 500 MG capsule Take by mouth.Active Multiple Vitamin (Multi-Vitamin) tablet Take 1 tablet by mouth in the morning.Active sildenafil (Viagra) 100 MG tablet Indications:Erectile dysfunction, unspecified erectile dysfunction typeTake 1 tablet (100 mg) by mouth Daily as needed for erectile dysfunction. 10 tablet ctive albuterol HFA 90 mcg/act inhaler Inhale 2 puffs every 6 (six) hours if racpah0210/20/2023ctive omeprazole OTC (PriLOSEC OTC) 20 MG EC tablet Take 20 mg by mouth in the morning. Take before meals. Do not crush, chew, or split..Active methylphenidate CD (Metadate CD) 10 MG daily capsule Take 10 mg by mouth in the morning. Do not crush or chew..Active Ketoconazole (Nizoral) 1 % shampoo Indications:Seborrheic dermatitisApply 1 Application topically 2 (two) times a week 200 mL 5Active metFORMIN (Glucophage) 850 MG tablet Indications:Type 2 diabetes mellitus with hyperglycemia, without long-term current use of insulin (HCC)Take 1 tablet (850 mg) by mouth in the morning. Take with meals. 90 tablet 5Active atorvastatin (Lipitor) 40 MG tablet Indications:Mixed hyperlipidemiaTAKE 1 TABLET BY MOUTH EVERY DAY 90 tablet 5Active diazePAM (Valium) 5 MG tablet Indications:KIKO (generalized anxiety disorder)Take 1 tablet (5 mg) by mouth 3 (three) times a day as needed for anxiety 90 tablet 5Active fexofenadine (Jaclyn) 180 MG tablet Take 180 mg by mouth DailyActive Synthroid 175 MCG tablet Indications:Hypothyroidism, postradioiodine therapyTAKE 1 TABLET (175 MCG) BY MOUTH IN THE MORNING. TAKE BEFORE MEALS. 90 tablet 5Active terazosin (Hytrin) 1 MG capsule Indications:Benign prostatic hyperplasia with lower urinary tract symptoms, symptom details unspecifiedTAKE 1 CAPSULE BY MOUTH EVERYDAY AT BEDTIME 90 capsule 5Active amLODIPine (Norvasc) 10 MG tablet Indications:Essential hypertensionTake 1 tablet (10 mg) by mouth Daily 30 tablet 5085Active meloxicam (Mobic) 7.5 MG tablet Indications:Impingement syndrome of left shoulder regionTake 1 tablet (7.5 mg) by mouth Daily 30 tablet 108508/6Active doxepin (SINEquan) 75 MG capsule Indications:Primary insomniaTake 1 capsule (75 mg) by mouth at bedtime 30 capsule 5Active Active Problems ProblemNoted DateDiagnosed DateSeborrheic gnqalhasri10/12/2025Medicare annual wellness visit, hzmtsvuutw01/12/2025 Assessment & Plan (04/18/2024 10:42 AM EST): Reviewed labs. Discussed proper diet and regular aerobic exercise. Need aerobic exercise 5-6 days aweek for 30 minutes at a time. Smaller portions and limit total calories. Colonoscopy every 10 years. Tetanus every 10 years. Advised not to smoke. Encounter for long-term (current) use of kybwyiuscvf37/12/2024hemotherapy- induced qlrpasccml60/24/2024 Assessment & Plan (10/17/2024 11:09 AM EDT): Symptoms resolved and monitor. Assessment & Plan (01/17/2024 11:03 AM EST): Continued pain and try lyrica. Use norco PRN. Assessment & Plan (12/29/2023 2:25 PM EDT): Worsening pain and discussed options. Suggested trial of lyrica but patient declined. Chronic obstructive pulmonary fnzokwg1310/20/2023 Assessment & Plan (10/17/2024 11:09 AM EDT): Symptoms stable and use albuterol PRN. Assessment & Plan (04/18/2024 10:44 AM EST): Symptoms stable and use albuterol PRN. Assessment & Plan (01/17/2024 11:03 AM EST): Symptoms stable and use albuterol PRN. TIA (transient ischemic attack)10/12/2023 Assessment & Plan (10/12/2023 12:31 PM EDT): Recent TIA but symptoms resolved. Balance off and start PT. Continue plavix and statin. KIKO (generalized anxiety disorder)10/12/2023 Assessment & Plan (10/12/2023 12:31 PM EDT): Worsening anxiety and use valium PRN. Lkkqhtbw38/07/2024 Assessment & Plan (10/12/2023 12:32 PM EDT): Balance off and start PT. 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10/12/2023 Assessment & Plan (10/17/2024 11:10 AM EDT): Follow with specialists. Assessment & Plan (04/18/2024 10:44 AM EST): Follow with specialists. Assessment & Plan (12/29/2023 2:26 PM EDT): Follow with specialists. Assessment & Plan (10/12/2023 12:31 PM EDT): Pathology showed cancer and follow up with oncology as scheduled. Primary odgpuynq08/29/2024 Assessment & Plan (10/17/2024 11:10 AM EDT): Not sleeping well and try doxepin. Assessment & Plan (12/29/2023 2:26 PM EDT): Sleeping well with trazodone and continue. Left-sided ippfeatd80/23/2024DD (degenerative disc disease), peigwkge18/14/2024 Assessment & Plan (04/20/2023 12:12 PM EST): Pain stable and use norco PRN. Increase activity and walk regularly. Benign prostatic hyperplasia with lower urinary tract lrksdeby07/11/2023 Assessment & Plan (04/20/2023 12:12 PM EST): Occasional symptoms but tolerable and continue terazosin. H/O malignant neoplasm of skin12/15/2022egenerative lumbar spinal stenosis 12/15/2022 Assessment & Plan (04/20/2023 12:12 PM EST): Pain stable and use norco PRN. Increase activity and walk regularly. 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 Increase ambulation. Assessment & Plan (12/29/2023 2:26 PM EDT): Worsening claudication and contact oncology about resuming plavix. Increase ambulation. Assessment & Plan (04/20/2023 12:13 PM EST): Symptoms stable and follow up with vascular. Xlnvfaooglr80/19/2021ilateral carotid artery mlobdxgy99/23/2021Family history of lung fdhzzt3508/01/2019Erectile iwjibsmhnur66/01/2019Rotator cuff arthropathy of right eqfqlhzq64/01/2019Postviral fatigue odkoqtak90/13/2019Headache disorder 05/25/2018Mixed hsecpxwbsxmjkd39/31/2017Low vyszaoasuyhy54/31/2017Seasonal allergic rhinitis due to mrxuxv9304/29/20169261Gbdflfds97/23/2017Chronic fatigue stbawmqs25/23/2017History of gastrointestinal eruvrqy4004/29/2016Hypothyroidism, postradioiodine deppotw3904/29/2016 Assessment & Plan (04/20/2023 12:13 PM EST): Medication adjusted and repeat labs next month. Impingement syndrome of left shoulder czvbss3804/29/2016Mixed conductive and sensorineural hearing loss04/29/2016Myringotomy tube xzvwsw2704/29/2016 Trochanteric bursitis of right hip04/29/2016 Assessment & Plan (10/17/2024 11:10 AM EDT): Pain unchanged follow with ortho. Assessment & Plan (07/25/2023 10:49 AM EDT): Pain unchanged and refer to ortho for possible injection. Finish prednisone. Use ice PRN. Handout with ROM exercises to patient. Hx of fusion of cervical spine02/16/2012Essential bimoxzlyoqfr30/19/2011 Assessment & Plan (10/17/2024 11:09 AM EDT): BP controlled and monitor PRN. Assessment & Plan (01/17/2024 11:03 AM EST): BP controlled and monitor PRN. Assessment & Plan (04/20/2023 12:13 PM EST): BP controlled and monitor PRN. Resolved Problems ProblemNoted DateDiagnosed DateResolved DateAcute bronchitis due to other specified hbadwwtfp06/09/2023 Assessment & Plan (05/02/2023 11:30 AM EST): Take antibiotics for 7 days. Use prednisone for inflammation. Use sudafed or other decongestants asneeded. Use Robitussin or Robitussin-DM for cough. Can use afrin for congestion but no longer than 3 days. Can use Mucinex to bring up phlegm. Use Motrin or Tylenol as needed for fever, aches, or pains. Increase fluid intake and rest. Should improve over next 5-7 days and if no better or worse callfor re-evaluation. H/O TIA (transient ischemic attack) and crznys79Inflammation of joint of left shoulder xgxljh61Not currently working due to disabled jaakre93Other specified postprocedural states Lower urinary tract symptoms due to benign prostatic wwxuntzxahp63Hyperglycemiaifficulty fzkkbari93ight internal carotid Skin sensation hvohxjzlqeq65isorder of lwboadr1606/13/2020 04/20/2023Lumbago with sciatica, unspecified sideifficulty ovtiwgi46isplacement of lumbar intervertebral disc without tvkhuztqot57Intervertebral disc disorder of lumbar region with jfabirvoxd12onstipation/01/2024Otorrhea of left eardult BMI 30.0-30.9 kg/sq m0Temporal uwizvyxbstoej22Infectious colitis, enteritis and nosdnydpurpuqqa74Tinnitus of left ear Family history of prostate mqyqrc78taxia Rtpgehwvoek74External muxycsrsgtf13History of stroke without residual nyogqbsd09Unemployed04/29/2016 04/20/2023Impairment of duzvjnf07hronic pain syndrome igarette wjkkzp94Hyporeflexia02/16/2012 04/20/2023 Overview (09/13/2022): At [facility] Lnzbxureevomvh07 Encounters DateTypeDepartmentCare MhzmXudbeeeuwdd20/16/2025 10:00 AM EDTAncillary Procedure [facility] [address] [place] [address] Trochanteric bursitis, right hip11/20/20247726Hglfyp39/22/2025linisync Result Encounter [facility] Department Unsolicited Provider, Generic External Data 10/24/2024 1:30 PM EDTTreatment [facility] [address] [place] [address] Malik Parker PTA Trochanteric bursitis of right hip (Primary Dx)10/24/2024amboo flowsheet [facility] [address] [place] [address] Malik Parker PTA 10/24/20241295Qffyve99/13/2025 1:30 PM EDTTreatment [facility] [address] [facility] [address] [place] [address] Ayesha Mayes, PUBLISHING DIRECTOR Trochanteric bursitis of right hip (Primary Dx)10/17/2024 10:00 AM EDTOffice Visit [facility] [address] [place] [address] Dick Boss MD Essential hypertension (Primary Dx); Chronic obstructive pulmonary disease, unspecified COPD type (HCC); Chemotherapy-induced neuropathy (HCC); 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); Primary insomnia; Trochanteric bursitis of right hip10/17/2024amboo flowsheet [facility] [address] [place] [address] Dick Boss MD 10/17/20248087Uukugd59/06/2025Refill [facility] [address] [place] [address] Dick Boss MD Impingement syndrome of left shoulder region (Primary Dx); Essential czuaahytitmq54/28/2025 1:00 PM EDTTreatment [facility] [address] [facility] [address] [place] [address] Arnulfo Wang PTA Trochanteric bursitis of right hip (Primary Dx)10/01/2024amboo flowsheet [facility] [address] [facility] [address] [place] [address] Arnulfo Wang PTA 10/01/2024Travelfrom Last 3 Months Immunizations ImmunizationAdministration DatesNext DuePneumococcal Conjugate PCV 13008/04/2016 Pneumococcal Polysaccharide YKBW7293,12/16/2014Zoster, Recombinant 11/20/2018,07/02/2018 Family History Medical HistoryRelationNameCommentsHeart diseaseFatherHypertensionFatherProstate cancerFatherNo Known ProblemsMaternal GrandfatherHeart diseaseMaternal GrandmotherHeart diseaseMotherStrokeMotherHeart diseasePaternal Grandfather StrokePaternal GrandmotherMelanomaNeg HxRelationNameStatusCommentsFatherDeceased Maternal GrandfatherDeceasedMaternal GrandmotherDeceasedMotherDeceasedPaternal GrandfatherDeceasedPaternal GrandmotherDeceased Social History Tobacco UseTypesPacks/DayYears UsedDateSmoking Tobacco: Every DayCigarettes Smokeless Tobacco: Never Tobacco Cessation:Ready to Q uit: No; Counseling Given: Yes Comments:Smokes 6-30 mins after waking up Alcohol UseStandard Drinks/WeekCommentsNot Currently0 (1 standard drink = 0.6 oz pure alcohol)caffeine: 2-3 cups per day coffeeHumiliation, Afraid, Rape, and Kick questionnaireAnswerDate RecordedWithin the last year, have you been afraid of your partner or ex-partner?No04/19/2023Within the last year, have you been humiliated or emotionally abused in other ways by your partner or ex-partner?No 04/19/2023Within the last year, have you been kicked, hit, slapped, or otherwise physically hurt by your partner or ex-partner?No04/19/2023Within the last year, have you been raped or forced to have any kind of sexual activity by your part ner or ex-partner?No04/19/2023Social Connection and Isolation PanelAnswerDate RecordedIn a typical week, how many times do you talk on the phone with family, friends, or neighbors?Three times a week04/19/2023How often do you get together with friends or relatives?Once a week04/19/2023How often do you attend religious or yarsani services?More than 4 times per year04/19/2023o you belong to any clubs or organizations such as religious groups, unions, fraternal or athletic elizabeth ups, or school groups?Patient yjwralyv67/13/2024How often do you attend meetings of the clubs or organizations you belong to?Patient /13/2024re you , , , , never , or living with a partner? Bvxevbx4504/19/2023UDIT-CAnswerDate RecordedQ1: How often do you have a drink containing alcohol?Monthly or less04/19/2023Q2: How many drinks containing alcohol do you have on a typical day when you are drinking?1 or Q3: How often do you have six or more drinks on one occasion?Never04/19/2023Overall Financial Resource Strain (CARDIA)AnswerDate RecordedHow hard is it for you to pay for the very basics like food, housing, medical care, and heating?Not hard at all04/19/2023HQ-2AnswerDate RecordedPatient Health Questionnaire-2 Score0 04/18/2024[facility] [place] [facility] - Occupational Stress QuestionnaireAnswerDate RecordedDo you feel stress - tense, restless, nervous, or anxious, or unable to sleep at night because yourmind is troubled all the time - these days?Patient lipmilzn25/13/2024Exercise Vital SignAnswerDate RecordedOn average, how many days per week do you engage in moderate to strenuous exercise (like a brisk walk)?3 days04/19/2023On average, how many minutes do you engage in exercise at this level?30 min04/19/2023Hunger Vital SignAnswerDate RecordedWithin the past 12 months, you worried that your food would run out before you got the money to buymore.Never true04/19/2023Within the past 12 months, the food you bought just didn't last and you didn't have money to get more.Never true04/19/2023RAPARE - TransportationAnswerDate RecordedIn the past 12 months, has lack of transportation kept you from medical appointments or from getting medications?No04/19/2023In the past 12 months, has lack of transportation kept you from meetings, work, or from getting things needed for daily living?No04/19/2023Housing Stability Vital SignAnswerDate RecordedIn the last 12 months, was there a time when you were not able to pay the mortgage or rent on time?No04/19/2023In the last 12 months, how many places have you lived?In the last 12 months, was there a time when you did not have a steady place to sleep or slept in ashelter (including now)?No 04/19/2023Sex and Gender InformationValueDate RecordedSex Assigned at BirthNot on fileLegal RdrHpmp6005/19/2022 7:20 PM EDTGender IdentityNot on fileSexual OrientationNot on file Last Filed Vital Signs Vital SignReadingTime TakenCommentsBlood Xzyqyrkc498/6808 10:30 AM EDT Kpdpf470610/17/2024 10:30 AM HVXHjpdbsbaajo34.6 ??C (97.8 ??F)10/17/2024 10:30 AM EDTRespiratory Monp851710/17/2024 10:30 AM EDTOxygen Fzuxscxocs01%10/17/2024 10:30 AM EDTInhaled Oxygen Concentration--Utrahw95.3 kg (177 lb)10/17/2024 10:30 AM TBIFcodqu596.6 cm (5' 6 )10/17/2024 10:30 AM EDTBody Mass Index28.57010/17/2024 10:30 AM EDT Plan of Treatment DateTypeDepartmentCare Team (Latest Contact Info)Zuwomblydzh89/21/2026 3:15 PM EDTOffice Visit [facility] [address] [place] [address] Ada Claudio MD [address] [place] [address] Health MaintenanceDue DateLast DoneCommentsCT Dcevfpnjmlof16/29/1956FIT-DNA 1955FIT1955FOBT1955Tpnlzqfbewmco84/29/1956Influenza Vaccine (#1)11/05/20244640Dniurdtvehj00Colorectal Cancer Screening 10/02/2025Pneumococcal Vaccine: 65+ TcpypBjgjnyrek96/11/2023, 08/04/2016, 12/16/2014 Procedures Procedure NamePriorityDate/TimeAssociated DiagnosisCommentsMR HIP RIGHT WO IV ZSWZELCFBbktnba19/16/2025 11:24 AM EDT Trochanteric bursitis, right hip XR CHEST 2V FRONTAL/LAT10/26/2024 8:51 AM EDT TWVKGKKIQKSIgomncs61/29/2016 12:00 PM EDT from Last 3 Months or Most Recently Relevant to Health Maintenance Results * MR hip right wo IV contrast (11/20/2024 11:24 AM EDT)Anatomical Region LateralityModalityLower Extremities, HipRightMagnetic ResonanceSpecimen (Source)Anatomical Location / LateralityCollection Method / VolumeCollection TimeReceived Time11/20/2024 2:56 PM EDT Impressions 11/20/2024 3:01 PM EDT Degenerative changes as discussed. No significant right trochanteric bursitis. ELECTRONICALLY SIGNED BY: Clifton Garcia MD Narrative 11/20/2024 3:01 PM EDT EXAMINATION/TECHNIQUE: MR HIP RIGHT WO IV CONTRAST History: Chronic right hip pain. Trochanteric bursitis. Comparison: MRI 08/09/2023. RESULT: RIGHT HIP JOINT: No distinct measurable full-thickness chondral defect. Probable areas of partial-thickness chondral loss. Degenerative signal in the labrum. No evidence for fracture. No joint effusion. LEFT HIP JOINT: Large hdkja-nj-irug with degenerative changes. ? SI JOINTS: Unremarkable. PUBIC SYMPHYSIS: Unremarkable. BONE [...] degenerative changes. OTHER: No other significant abnormality. Procedure Note Clifton Garcia MD - 11/20/2024 EXAMINATION/TECHNIQUE: MR HIP RIGHT WO IV CONTRAST History: Chronic right hip pain. Trochanteric bursitis. Comparison: MRI 08/09/2023. RESULT: RIGHT HIP JOINT: No distinct measurable full-thickness chondral defect.Probable areas of partial-thickness chondral loss. Degenerative signal inthe labrum. No evidence for fracture. No joint effusion. LEFT HIP JOINT: Large upopx-sq-yftq with degenerative changes. SI JOINTS: Unremarkable. PUBIC SYMPHYSIS: Unremarkable. BONE MARROW: There is no evidence of fracture, bone bruise, marrowreplacing lesion or osteonecrosis. TENDONS: Chronic appearing tearing involving the right gluteus minimus,similar to prior. Other visualized tendons about the right hip appeargrossly intact. No significant fluid at the right trochanteric bursa.Trace fluid left trochanteric bursal region. MUSCLE: Muscle bulk and signal intensity are within normal limits. NERVES: The visualized portions of the lumbosacral plexus and sciaticnerves appear to be within normal limits. VISCERAL PELVIS: Limited evaluation. Small bladder diverticulum. Smallfat- containing right inguinal hernia. Colonic diverticulosis. LOWER LUMBAR SPINE: Limited evaluation with degenerative changes. OTHER: No other significant abnormality. IMPRESSION: Degenerative changes as discussed. No significant right trochanteric bursitis. ELECTRONICALLY SIGNED BY: Clifton Garcia MD Authorizing ProviderResult TypeResult StatusRobanupama Canas MDIMJosh MRI PROCEDURES Final Result * XR CHEST 2V FRONTAL/LAT (10/26/2024 8:51 AM EDT)Anatomical RegionLaterality ModalityOtherSpecimen (Source)Anatomical Location / LateralityCollection Method / VolumeCollection TimeReceived Time10/26/2024 8:51 AM EDT Narrative 10/26/2024 11:24 AM EDT * * *Final Report* * * DATE OF EXAM: Oct 26 2024 ??8:51AM ?? NRX ?? [id number] ??- ??XR CHEST 2V FRONTAL/LAT ??/ PROCEDURE REASON: multiple diagnoses ? * * * * Physician Interpretation * * * * RESULT: EXAMINATION: ??CHEST RADIOGRAPH (2 VIEW FRONTAL and LATERAL) CLINICAL HISTORY: Radiation-induced pulmonary fibrosis (HCC) Shortness of breath MQ: ??XC2_6 EXAM DATE/TIME: ??10/26/2024 8:51 AM COMPARISON: ??PET/CT 08/03/2024 RESULT: Lines, tubes, and devices: ??None. Lungs and pleura: ??Left mid lung zone/perihilar and left lung base opacity, likely related to atelectasis/scarring is appreciated, progressed in appearance. ??The right lung is clear. ??Small left pleural effusion is suspected, also new finding. ??The pulmonary vasculature is within normal limits.. Cardiomediastinal silhouette: ??Normal cardiomediastinal silhouette. Bones and soft tissues: ??Mild degenerative change within the thoracic spine. IMPRESSION: Newly appearing/progression of left mid and lower lung zone opacities, small left pleural effusion, likely progressed from prior PET/CT examination. ??These findings may be posttreatment related. ??Correlation with follow-up chest x-rays or, for immediate further evaluation, CT scan of the chest would be recommended. Transcribe Date/Time: Oct 26 2024 11:18A Dictated by: ESPINOZA DIAZ MD This examination was interpreted and the report reviewed and electronically signed by: ESPINOZA DIAZ MD on Oct 26 2024 11:22AM ??EST Thank you for allowing us to participate in the care of your patient. Should there be any questions regarding this interpretation, please call [phone]. If you are unable to reach us at the number above, please feel free to contact [facility] at [phone]. [id number]^AGFA_IDC^SI^ACN Procedure Note Radiology, Radiologist, - 10/26/2024 * * *Final Report* [...] any questions regarding this interpretation, please call [phone]. If you are unable to reach us at the number above, please feel free to contact [facility] at [phone]. [id number]^AGFA_IDC^SI^ACN Authorizing ProviderResult TypeResult StatusGeneric External Data Provider CLINIS[facility]NC IMAGINGFinal Result * Colonoscopy (10/03/2015 12:00 PM EDT)Anatomical RegionLateralityModality EndoscopySpecimen (Source)Anatomical Location / LateralityCollection Method / VolumeCollection TimeReceived Time10/03/2015 12:00 PM EDT Narrative 10/03/2015 12:00 PM EDT PERFORMED AT [facility] LOCATION:[id number] Abnormal Procedure Note CONVERSION, GENERIC - 07/22/2022 PERFORMED AT [facility] LOCATION:[id number] Abnormal Authorizing ProviderResult TypeResult StatusJonathan F DillerENDOSCOPY PROCEDURE ORDERABLESFinal Result from Last 3 Months or Most Recently Relevant to Health Maintenance Insurance * Guarantor: Nate Pena TypeRelation to PatientDate of BirthPhone Billing AddressPersonal/CzykixUler[birth year][address] [address] Advance Directives TypeDate RecordedPatient RepresentativeExplanationAdvance Directives and Living Will living will-healthcare POA Care Teams Team MemberRelationshipSpecialtyStart DateEnd Date Dick Boss MD PCP - GeneralFamily Medicine04/20/23
--- OUTSIDE RECORDS SUMMARY | 2024-12-31 15:00 | XMS_ITS | Clinical Summary ---
Author Organization [facility] Address [address], [address] [place] [address] Care Team Providers Care Pump House Operator Name Role Phone Mikhail Vega MD Primary Care Provider Unav ailable Social History Tobacco UseTypesPacks/DayYears UsedDateSmoking Tobacco: Never AssessedSex and Gender InformationValueDate RecordedSex Assigned at BirthNot on fileLegal Sex Male04/16/2012 11:30 AM ESTGender IdentityNot on fileSexual OrientationNot on file Plan of Treatment Not on file Care Teams Team MemberRelationshipSpecialtyStart DateEnd Date Mikhail Vega MD PCP - Kegxfjq44/26/12
--- OUTSIDE RECORDS SUMMARY | 2024-12-31 15:00 | XMS_ITS | Clinical Summary ---
Author Organization [facility] Address [address] [place] [address] Phone Care Team Providers Care Seating Upholsterer Name Role Phone Mikhail Vega MD Primary Care Provider + Social History Tobacco UseTypesPacks/DayYears UsedDateSmoking Tobacco: Never AssessedSex and Gender InformationValueDate RecordedSex Assigned at BirthNot on fileLegal Sex Male01/29/2022 11:51 AM ESTGender IdentityNot on fileSexual OrientationNot on file Last Filed Vital Signs Vital SignReadingTime TakenCommentsBlood Wzjlixda274/8403 11:27 AM EDT Hvokf0857 11:27 AM EDTTemperature--Respiratory Pqgt6161 11:27 AM EDTOxygen Nzehulpmlq05%05/16/2019 11:27 AM EDTInhaled Oxygen Concentration-- Dkvhaz66.1 kg (185 lb 6.2 oz)05/16/2019 11:27 AM CCDFplpqa673.6 cm (5' 6 ) 05/16/2019 11:27 AM EDTBody Mass Index29.9203 11:27 AM EDT Plan of Treatment Not on file Care Teams Team MemberRelationshipSpecialtyStart DateEnd Date Mikhail Vega MD [address] [place] [address] PCP - Xlkkrnh36/12/15
--- OUTSIDE RECORDS SUMMARY | 2024-12-31 15:00 | XMS_ITS ---
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 Monitored per PCP. Chronic pain /21/2024 Assessment & Plan (10/26/2023 2:56 PM EDT): Assessment: Managed with hydrocodone, takes 1-2 per day. Yrpforxqtpk29/21/2024 Assessment & Plan (10/26/2023 2:59 PM EDT): Assessment: On metformin History of szqwifxmry71/21/2024 Assessment & Plan (10/26/2023 3:11 PM EDT): Assessment: CSF leak Malignant neoplasm of upper lobe of left lung10/23/2023 Cancer Staging: Clinical stage from 10/21/2023:Stage IIB(cT3, cN0, cM0) - Unsigned Chronic obstructive pulmonary quzgdtx8010/20/2023 Assessment & Plan (10/26/2023 2:34 PM EDT): Assessment: Stable, mild per last Pulm office visit: Mild COPD -FEV1 1.9L/ DLCO 106 TIA (transient ischemic attack)10/12/2023 Overview (10/26/2023): Last Assessment & Plan: Recent TIA but symptoms resolved. Balance off and start PT. Continue plavix and statin. 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 Currently holding ASA and Plavix as directed by outside physician 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10/12/2023 Overview (10/26/2023): Last Assessment & Plan: Pathology showed cancer and follow up with oncology as scheduled. KIKO (generalized anxiety disorder)10/12/2023 Overview (10/26/2023): Last Assessment & Plan: Worsening anxiety and use valium PRN. Assessment & Plan (10/26/2023 2:39 PM EDT): Assessment: Using PRN valium Benign prostatic hyperplasia with lower urinary tract jtwohlmu18/11/2023 Overview (10/26/2023): Last Assessment & Plan: Occasional symptoms but tolerable and continue terazosin. Right internal carotid zhstpabch78/12/2022PAD (peripheral artery disease) 05/04/2021 Overview (10/26/2023): Last Assessment & Plan: Symptoms stable and follow up with vascular. Assessment & Plan (10/26/2023 2:54 PM EDT): Assessment: Known blockage - on baby ASA - following with vascular surgery Hypothyroidism, postradioiodine ldwvxdv2204/29/2016 Overview (10/26/2023): Last Assessment & Plan: Medication adjusted and repeat labs next month. Assessment & Plan (10/26/2023 2:35 PM EDT): Assessment: Stable on Levothyroxine (Synthroid) Cigarette nbfrel0804/14/2016 Assessment & Plan (10/26/2023 2:35 PM EDT): Assessment: Recently quit - 4 weeks ago (09/2023) using nicotine patches Other affections of shoulder region, not elsewhere /08/2013 Uifjboylzanb18/12/2012 Overview (02/16/2012): At knees Hx of fusion of cervical spine02/16/2012Essential zsmeggawmlry09/19/2011 Overview (10/26/2023): Last Assessment & Plan: BP controlled and monitor PRN. Assessment & Plan (10/26/2023 2:40 PM EDT): Assessment: Stable and compliant with medications Followed by PCP Last 5 Encounter BP Readings: Date: BP: 10/26/2023 136/74 10/21/2023 136/72 02/16/2012 147/76 10/15/2011 144/80 Current Treatment and Therapy Plans No current plan information found. Past Treatment and Therapy Plans Plan NameStart DateDiscontinue DateTreatment MedicationsDiscontinue ReasonPlan ProviderCyclesAMB NIVOLUMAB 480 D1 - Q28//02/2025* nivolumab iv infusion (OPDIVO) Patient PreferenceAbPreston rubi MD3 of 6 cycles startedAMB NIVOLUMAB 360 PACLITAXEL 200 CARBOPLATIN 6 D1 - Q21D//07/2024* CARBOplatin iv piggyback (PARAPLATIN) * fosaprepitant (EMEND) * nivolumab iv infusion (OPDIVO) * PACLitaxel iv piggyback in 500 mL (TAXOL) * palonosetron (ALOXI) Treatment CompleteAbPreston rubi MD3 of 3 cycles started
--- OUTSIDE RECORDS SUMMARY | 2024-12-31 15:01 | XMS_ITS | Clinical Summary ---
Author Organization [facility] Address [address] [place] [address] Care Team Providers Care Tooth Clerk Name Role Phone Dick Boss MD Primary Care Provider Preston Lucio MD Unavailable [phone] Gerald Dumont MD Unavailable Kathy Ruiz MD Unavailable [phone] Preston Lucio MD Unavailable Michelle Galvez SOFTWARE INTEGRATION DEVELOPER.REGIONAL PROJECT MANAGER Unavailable Noemy Chicas RN Unavailable [phone] Steffany Damian Unavailable Unavailable Valorie Fernandez SOFTWARE INTEGRATION DEVELOPER.REGIONAL PROJECT MANAGER Unavailable + Anna Rasmussen RN Unavailable Unavail able Allergies Active AllergyReactionsCriticalityNoted DateCommentsGabapentinIntolerance 02/08/2024 Causes Altered mental Status Sulfa (Sulfonamide Antibiotics)LtejjtjQkgd60/10/2012 Unkown, was a child Medications MedicationSigDispense QuantityRefillsLast FilledStart DateEnd DateStatus levothyroxine (SYNTHROID) 175 mcg tablet Take 175 mcg by mouth daily before breakfast.Active ascorbic acid (VITAMIN C) 500 mg tablet Take 500 mg by mouth once daily.Active multivitamin tablet Take 1 tablet by mouth once daily.Active propranolol (INDERAL) 20 mg tablet TAKE 1 TABLET BY MOUTH NEEDED FOR ANXIETY ATTACKS ONCE A DAY12/25/2021ctive terazosin (HYTRIN) 1 mg capsule Take 1 mg by mouth daily at bedtime.02/01/2023ctive metFORMIN (GLUCOPHAGE) 850 mg tablet Take 850 mg by mouth daily with breakfast.10/02/2023ctive krill oil 500 mg cap Take 1 capsule by mouth once daily.Active Glucosamine HCl 500 mg tab Take 1 tablet by mouth once daily.Active atorvastatin (LIPITOR) 40 mg tablet Take 40 mg by mouth once daily.11/02/2019Active aspirin, enteric coated (ASPIRIN, ENTERIC COATED) 81 mg EC tablet Take 81 mg by mouth once daily.Active albuterol HFA (PROVENTIL HFA, VENTOLIN HFA) 90 mcg/actuation inhaler Inhale 2 Puffs as instructed every 6 hours as needed.10/20/2023ctive clopidogrel (PLAVIX) 75 mg tablet Take 75 mg by mouth once daily.Active Nicotine Polacrilex (NICORETTE) [address] 4 mg between cheek and gum as needed.Active MELOXICAM ORAL Take by mouth.Active traZODone (DESYREL) 100 mg tablet Take 1 tablet by mouth daily at bedtime.02/23/2024ctive amLODIPine (NORVASC) 10 mg tablet Take 10 mg by mouth once daily.Active Docusate Sodium 100 mg tab Take 100 mg by mouth two times a day.Active HYDROcodone-Acetaminophen (NORCO) 7.5-325 mg per tablet Take 1 tablet by mouth every 6 hours as needed.11/13/2024tive pregabalin (LYRICA) 75 mg capsule 5Active doxepin capsule 75 mg Take 75 mg by mouth daily at bedtime.10/17/2024tive ibuprofen (MOTRIN) 600 mg tablet Take 600 mg by mouth.10/29/2024tive diazePAM (VALIUM) 5 mg tablet Take 5 mg by mouth.5Active predniSONE (DELTASONE) 10 mg tablet Indications:Radiation-induced pulmonary fibrosis (HCC),Malignant neoplasm of unspecified part of unspecified bronchus or lung (HCC),NeuralgiaTake 1 tablet by mouth once daily. 30 tablet 5Active predniSONE (DELTASONE) 10 mg tablet Indications:Radiation-induced pulmonary fibrosis (HCC),Malignant neoplasm of unspecified part of unspecified bronchus or lung (HCC),NeuralgiaTake 2 tablets by mouth once daily. 60 tablet 11/09/2024 12:40 PM EDTDiscontinued Active Problems ProblemNoted DateDiagnosed UvapSjohvxzebleke55/02/2024Mixed hyperlipidemia 10/26/2023 Assessment & Plan (10/26/2023 2:40 PM EDT): Assessment: Controlled with statin. Monitored per PCP. Chronic pain qktijzgx84/21/2024 Assessment & Plan (10/26/2023 2:56 PM EDT): Assessment: Managed with hydrocodone, takes 1-2 per day. Istndhiwryg79/21/2024 Assessment & Plan (10/26/2023 2:59 PM EDT): Assessment: On metformin History of fgtsbylutw69/21/2024 Assessment & Plan (10/26/2023 3:11 PM EDT): Assessment: CSF leak Malignant neoplasm of upper lobe of left lung10/23/2023 Cancer Staging: Clinical stage from 10/21/2023:Stage IIB(cT3, cN0, cM0) - Unsigned Chronic obstructive pulmonary fgjpfnk1910/20/2023 Assessment & Plan (10/26/2023 2:34 PM EDT): [...] Benign prostatic hyperplasia with lower urinary tract qofhurbq49/11/2023 Overview (10/26/2023): Last Assessment & Plan: Occasional symptoms but tolerable and continue terazosin. Right internal carotid wivcjjvrr03/12/2022AD (peripheral artery disease) 05/04/2021 Overview (10/26/2023): Last Assessment & Plan: Symptoms stable and follow up with vascular. Assessment & Plan (10/26/2023 2:54 PM EDT): Assessment: Known blockage - on baby ASA - following with vascular surgery Hypothyroidism, postradioiodine rnntfkn1404/29/2016 Overview (10/26/2023): Last Assessment & Plan: Medication adjusted and repeat labs next month. Assessment & Plan (10/26/2023 2:35 PM EDT): Assessment: Stable on Levothyroxine (Synthroid) Cigarette cmfxlb8204/14/2016 Assessment & Plan (10/26/2023 2:35 PM EDT): Assessment: Recently quit - 4 weeks ago (09/2023) using nicotine patches Other affections of shoulder region, not elsewhere wfvwkjahuh63/08/2013 Cfeqkrnlcmun51/12/2012 Overview (02/16/2012): At knees Hx of fusion of cervical spine02/16/2012Essential oktoekqohxvl63/19/2011 Overview (10/26/2023): Last Assessment & Plan: BP controlled and monitor PRN. Assessment & Plan (10/26/2023 2:40 PM EDT): Assessment: Stable and compliant with medications Followed by PCP Last 5 Encounter BP Readings: Date: BP: 10/26/2023 136/74 10/21/2023 136/72 02/16/2012 147/76 10/15/2011 144/80 Encounters DateTypeDepartmentCare IwadNoqnmswstgz86/13/2025Telephone Hematology/Oncology [address] [place] [address] [place] [address] Noemy Chicas, RN Care Coordination (Lung Pain)12/07/2024 2:00 PM EDTVisit (SP) Office Hematology/Oncology [address] [place] [address] [place] [address] Elizabeth Givens APRN.REGIONAL PROJECT MANAGER Malignant neoplasm of unspecified part of unspecified bronchus or lung (HCC) (Primary Dx); Radiation-induced pulmonary fibrosis (HCC); Radiation induced neuropathy (HCC); Malaise and fatigue; Malignant neoplasm of lower lobe, left bronchus or lung (HCC); exterminator termite (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; Hyperglycemia; Nzeowmcdxdx66/26/2025 8:30 AM EDTOffice Visit Palliative Medicine [address] [place] [address] [place] [address] Valorie Fernandez, SOFTWARE INTEGRATION DEVELOPER.REGIONAL PROJECT MANAGER Palliative care by specialist (Primary Dx); Radiation-induced pulmonary fibrosis (HCC); Malignant neoplasm of unspecified part of unspecified bronchus or lung (HCC); Neuralgia; Neuropathy due to chemotherapeutic drug (HCC); 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 condition; detention (current) use of systemic chqpsvge33/26/6193Wnwgba03/19/2025 1:30 PM EDTVisit (SP) Office Hematology/Oncology [address] [place] [address] [place] [address] Elizabeth Givens APRN.REGIONAL PROJECT MANAGER Radiation-induced pulmonary fibrosis (HCC) (Primary Dx); Malignant neoplasm of unspecified part of unspecified bronchus or lung (HCC); Pleural effusion, not elsewhere classified; Shortness of breath; Malaise and fatigue; Radiation induced neuropathy (HCC); exterminator termite (current) use of systemic ayzdhcja01/19/7320Tamtcy77/12/2025 11:00 AM EDTOffice Visit Radiation Oncology [address] [place] [address] [place] [address] Jack Kc MD Malignant neoplasm of upper lobe of left lung (HCC) (Primary Dx)11/09/2024 11:45 AM EDTVisit (SP) Office Hematology/Oncology [address] [place] [address] [place] [address] Preston Lucio MD Radiation-induced pulmonary fibrosis (HCC) (Primary Dx); Malignant neoplasm of unspecified part of unspecified bronchus or lung (HCC); Neuralgia; Pleural effusion, not elsewhere classified; Herpes zoster without complications; Encounter for follow-up examination after completed treatment for malignant neoplasm; detention (current) use of systemic /05/2025 9:55 AM EDT - 11/09/2024 11:59 PM EDTHospital Encounter Radiology Pet CT [address] [place] [place] [address] Malignant neoplasm of unspecified part of unspecified bronchus or lung (HCC) [C34.90] Discharge Disposition: Home11/09/2024Telephone Cancer Appts [address] [place] [address] Preston Lucio MD Nabgkpi4311/09/20246567Cupsou46/02/2025Telephone Hematology/Oncology [address] [place] [address] [place] [address] Noemy Chicas, RN Care Coordination (Lung Pain)10/30/2024Telephone Hematology/Oncology [address] [place] [address] [place] [address] Noemy Chicas, RN Care Coordination (Discharge Follow Up Call )10/29/2024H&P External-NonCCF Provider, External, PAEdwardC 10/29/2024Telephone Hematology/Oncology [address] [place] [address] [place] [address] Noemy Chicas, RN Care Coordination (Hospital Admission)10/26/2024 8:00 AM EDT - 10/26/2024 11:59 PM EDTHospital Encounter Radiology [address] [place] [address] Radiation-induced pulmonary fibrosis (HCC) [J70.1] Discharge Disposition: Home10/25/2024Telephone Hematology/Oncology [address] [place] [address] Noemy Chicas, RN Care Coordination (Lung Pain)from Last 3 Months Immunizations ImmunizationAdministration DatesNext Duepneumococcal conjugate (PCV13) vaccine, 13 valent (PREVNAR 13)08/04/2016pneumococcal polysaccharide (PPV23) vaccine, 23 valent (PNEUMOVAX 23)03/17/2022,12/16/2014zoster (RZV) vaccine, recombinant (SHINGRIX)11/20/2018,07/02/2018 Family History Medical HistoryRelationCommentsHeart diseaseFatherHypertensionFatherCancerMother StrokeMotherStrokePaternal GrandmotherAnesthesia ProblemsNo Family History RelationStatusCommentsFatherMotherPaternal Grandmother Social History Tobacco UseTypesPacks/DayYears UsedDateSmoking Tobacco: FormerCigarettes0.550 09/22/1973 - 4Passive Smoke Exposure: CurrentSmokeless Tobacco: Never Tobacco Cessation:Counseling Given: Not Answered Comments:Quit September 26 Alcohol UseStandard Drinks/WeekCommentsNo0 (1 standard drink = 0.6 oz pure alcohol)PHQ-2AnswerDate RecordedPHQ-2 rgzcp9435Area Deprivation Index AnswerDate RecordedNational Score (1-100), lower number is lower risk75 10/21/2023State Score (1-10), lower number is lower fkhf0064Data from: https://www.neighborhoodatlas.medicine.[facility].edu/. Last address used for [address] [place] [address]10/21/2023Sex and Gender InformationValueDate RecordedSex Assigned at BirthNot on fileLegal WahJlcs01/02/2012 10:16 AM EST Gender IdentityNot on fileSexual OrientationNot on file Last Filed Vital Signs Vital SignReadingTime TakenCommentsBlood Fzaftdyc106/7410 2:07 PM EDT Unjwj4844 2:07 PM FLJKhcamddlhrd63.5 ??C (97.7 ??F)12/07/2024 2:07 PM EDTRespiratory Ugng3329 2:07 PM EDTOxygen Grjtoqkopz31%12/07/2024 2:07 PM EDTInhaled Oxygen Concentration--Gqsufo05 kg (191 lb 12.8 oz)12/07/2024 2:07 PM RZNRuladu866.5 cm (5' 5.55 )12/07/2024 2:07 PM EDTBody Mass Index31.38 12/07/2024 2:07 PM EDT Plan of Treatment DateTypeDepartmentCare Team (Latest Contact Info)Uthffyqlpkb01/29/2025 8:00 AM ESTAppointment Radiology Pet CT [address] [place] [address] PET03/11/2025 2:00 PM ESTVisit (SP) Office Hematology/Oncology [address] [place] [address] Preston Lucio MD [address] [place] [address] [place] [address] FOLLOW UP AFTER PET SCANHealth MaintenanceDue DateLast DoneCommentsAnnual PCP Team Chronic Disease Visit12/03/1973Depression Aicmahyur26/29/1974Hepatitis C Waaoafbql74/29/1974DTaP,Tdap,Td Vaccine (1 - Tdap)12/03/1974CT Colonography 12/03/2000Cologuard (FIT-DNA)12/03/2000Fecal Occult Blood12/03/2000Sigmoidoscopy 12/03/2000RSV Vaccine (1 - Risk 60-74 years 1-dose series)2015Colonoscopy Colorectal Cancer Fbvvpxdks81/29/2017Advance Directive Tpnyftzriy99/01/2025Medicare Advantage Annual Wellness Visit03/07/2024ovid-19 Vaccine ( season), 06/02/2020, 05/02/2020 Influenza Vaccine (#1)2024Diabetes Tazyhonpj00, 11/23/2024, 11/09/2024, Additional history existsProstate Cancer Screening Afqxnkwqxq38Lipid Clqzbqcgm94Shingrix WhgzprrPcazpfgec34/16/2019, 07/02/2018Pneumococcal Vaccine: 50+Completed 03/17/2022, 08/04/2016, 12/16/2014bdominal Aortic Aneurysm ScreeningCompleted 03/29/2023 Procedures Procedure NamePriorityDate/TimeAssociated DiagnosisCommentsTSH BLDRoutine 12/07/2024 1:40 PM EDT Malignant neoplasm of upper lobe of left lung (HCC) Abnormal blood chemistry Malaise and fatigue CORTISOL PVCZmdvcqf72/03/2025 1:40 PM EDT Malignant neoplasm of upper lobe of left lung (HCC) Abnormal blood chemistry Malaise and fatigue CBC + HSTOGhqrefq36/03/2025 1:40 PM EDT Malignant neoplasm of upper lobe of left lung (HCC) Abnormal blood chemistry Malaise and fatigue COMPREHENSIVE METABOLIC KPXHMHplehmh45/03/2025 1:40 PM EDT Malignant neoplasm of upper lobe of left lung (HCC) Abnormal blood chemistry Malaise and fatigue CBC + DHNSDxminet05/19/2025 3:29 PM EDT Radiation-induced pulmonary fibrosis (HCC) COMPREHENSIVE METABOLIC LYGJVOaobwym25/19/2025 3:10 PM EDT Malignant neoplasm of upper lobe of left lung (HCC) Abnormal blood chemistry Malaise and fatigue TSH CQKNigdniv90/19/2025 3:03 PM EDT Malignant neoplasm of upper lobe of left lung (HCC) Abnormal blood chemistry Malaise and fatigue CORTISOL OHUBehwtaf62/19/2025 3:03 PM EDT Malignant neoplasm of upper lobe of left lung (HCC) Abnormal blood chemistry Malaise and fatigue CBC + SMNIMqjgjcc29/19/2025 2:33 PM EDT Malignant neoplasm of upper lobe of left lung (HCC) Abnormal blood chemistry Malaise and fatigue NM PET/CT SKULL-THIGH FUATSULACPZgfmoeg92/05/2025 12:10 PM EDT Malignant neoplasm of unspecified part of unspecified bronchus or lung (HCC) GLUCOSE, BLOOD (POC)Cbqvchd5611/09/2024 10:03 AM EDT COMPREHENSIVE METABOLIC INPBXWxsrhuy33/05/2025 9:56 AM EDT Malignant neoplasm of unspecified part of unspecified bronchus or lung (HCC) CBC + EOWKQgdrhwq32/05/2025 9:56 AM EDT Malignant neoplasm of unspecified part of unspecified bronchus or lung (HCC) HEMOGLOBIN U5VAvleiai86/05/2025 9:56 AM EDT Malignant neoplasm of unspecified part of unspecified bronchus or lung (HCC) Immunotherapy Abnormal blood chemistry CORTISOL CAHAdsicnh99/05/2025 9:56 AM EDT Malignant neoplasm of unspecified part of unspecified bronchus or lung (HCC) Immunotherapy Malaise and fatigue Abnormal blood chemistry TSH BHEMwdytyt64/05/2025 9:56 AM EDT Malignant neoplasm of unspecified part of unspecified bronchus or lung (HCC) Immunotherapy Malaise and fatigue EXTERNAL VVUIPEAQGI21/26/2025 9:22 AM EDT EXTERNAL LAB10/29/2024 9:01 AM EDT EXTERNAL CXFUCFZ5910/29/2024 9:01 AM EDT EXTERNAL LAB10/29/2024 9:01 AM EDT EXTERNAL LAB10/29/2024 9:01 AM EDT EXTERNAL EZRUYLAZHY93/25/2025 9:[address] OUTSIDE CD DICOM ICQPYL0210/27/2024 XR CHEST 2V FRONTAL/GHDXrtvmof69/22/2025 8:52 AM EDT Radiation-induced pulmonary fibrosis (HCC) Shortness of breath from Last 3 Months Results * THYROID STIMULATING HORMONE (12/07/2024 1:40 PM EDT) Only the most recent of3 resultswithin the time period is included. ComponentValueRef RangeTest MethodAnalysis TimePerformed AtPathologist Signature TSH0.8210.270 - 4.200 mIU/L1 6:21 AM [facility] LABSpecimen (Source)Anatomical Location / LateralityCollection Method / Volume Collection TimeReceived TimeBloodBLOOD SPECIMEN / UnknownVenipuncture / Unknown 12/07/2024 1:40 PM EDT1 1:41 PM EDT Narrative Authorizing ProviderResult TypeResult StatusVivek Khadijah MDLABORATORYFinal ResultPerforming OrganizationAddressCity/State/ZIP CodePhone Number [facility] [address] [address], * (ABNORMAL) CORTISOL, SERUM (12/07/2024 1:40 PM EDT) Only the most recent of3 resultswithin the time period is included. ComponentValueRef RangeTest MethodAnalysis TimePerformed AtPathologist Signature Cortisol1.4(L)4.8 - 19.5 ug/dL12/08/2024 6:21 AM [facility] LABComment: Provided reference range is from 6-10 AM sample collection time. Cortisol Reference Range: 6-10 AM = 4.8-19.5 ug/dL, 4-8 PM = 2.5-11.9 ug/dL Specimen (Source)Anatomical Location / LateralityCollection Method / Volume Collection TimeReceived TimeBloodBLOOD SPECIMEN / UnknownVenipuncture / Unknown 12/07/2024 1:40 PM EDT1 1:41 PM EDT Narrative Authorizing ProviderResult TypeResult StatusPreston Lucio MDLABORATORYFinal ResultPerforming OrganizationAddressCity/State/ZIP CodePhone Number [facility] [address] [facility] [address] [place] [address], * (ABNORMAL) COMPREHENSIVE METABOLIC PANEL (12/07/2024 1:40 PM EDT) Only the most recent of3 resultswithin the time period is included. ComponentValueRef RangeTest MethodAnalysis TimePerformed AtPathologist Signature Protein, Total7.06.3 - 8.0 g/dL12/07/2024 2:28 PM EDTNOWEST [facility] LABAlbumin4.73.9 - 4.9 g/dL12/07/2024 2:28 PM EDTMAN [facility] LABCalcium, Total9.88.5 - 10.2 mg/dL12/07/2024 2:28 PM EDT [facility] LABBilirubin, Total0.40.2 - 1.3 mg/dL 12/07/2024 2:28 PM EDTMAN [facility] LABAlkaline Phosphatase 6638 - 113 U/L1 2:28 PM EDTNOWEST [facility] AIUGSB6687 - 40 U/L1 2:28 PM EDTNORTSELECT SPECIALTY [facility] NDEFRW4401 - 54 U/L1 2:28 PM EDTMAN [facility] AEIHsspxbs321(H)74 - 99 mg/dL12/07/2024 2:28 PM EDTMAN [facility] LABComment: The [place] Diabetes Association (ADA) provides guidance for cutoff [...] Medical Care in Diabetes 2016, [place] Diabetes Association. Diabetes Care. 2016.39(Suppl 1). RVD641 - 24 mg/dL12/07/2024 2:28 PM EDTMAN [facility] LAB Creatinine0.760.73 - 1.22 mg/dL12/07/2024 2:28 PM [facility] HNMAxquoj202605 - 144 mmol/L1 2:28 PM [facility] LABPotassium4.13.7 - 5.1 mmol/L1 2:28 PM [facility] OMGUxfufbkf22(L)98 - 107 mmol/L1 2:28 PM EDT [facility] VUFEX71974 - 30 mmol/L1 2:28 PM EDT [facility] LABAnion Uej490 - 15 mmol/L1 2:28 PM [facility] LABEstimated Glomerular Filtration Rate97 >=60 mL/min/1.73m 12/07/2024 2:28 PM [facility] LABComment:Estimated Glomerular Filtration Rate (eGFR) is calculated using the 2020 CKD-EPI creatinine equation. This equation utilizes serum creatinine, sex, and age as parameters. The creatinine assay has traceable calibration to isotope dilution- mass spectrometry. Refer to KDIGO guidelines for clinical interpretation. In patients with unstable renal function, e.g. those with acute kidney injury, the eGFRmay not accurately reflect actual GFR.Specimen (Source)Anatomical Location / LateralityCollection Method / VolumeCollection TimeReceived TimeBloodBLOOD SPECIMEN / UnknownVenipuncture / Gpoczcf4612/07/2024 1:40 PM EDT1 1:41 PM EDT Narrative Authorizing ProviderResult TypeResult StatusPreston Lucio MDLABORATORYFinal ResultPerforming OrganizationAddressCity/State/ZIP CodePhone Number [facility] [address] [place] [address] * (ABNORMAL) COMPLETE BLOOD COUNT AND DIFFERENTIAL (12/07/2024 1:40 PM EDT) Only the most recent of4 resultswithin the time period is included. ComponentValueRef RangeTest MethodAnalysis TimePerformed AtPathologist Signature WBC8.213.70 - 11.00 k/uL12/07/2024 1:54 PM EDTNORTHCOAST [facility] LABRBC4.214.20 - 6.00 m/uL12/07/2024 1:54 PM EDTNORTSELECT SPECIALTY [facility] ODJDyzhsqhxrd60.6(L)13.0 - 17.0 g/dL12/07/2024 1:54 PM EDTNORTSELECT SPECIALTY [facility]OSPITAL YPPHylaujxxod39.6(L)39.0 - 51.0 %12/07/2024 1:54 PM EDT [facility] IPHIRO16.380.0 - 100.0 fL12/07/2024 1:54 PM EDTNORTSELECT SPECIALTY [facility]ITAL YHESDO67.926.0 - 34.0 pg12/07/2024 1:54 PM EDTNORTHCST [facility] XDJJCYO65.530.5 - 36.0 g/dL12/07/2024 1:54 PM EDTNORTHCOAST [facility] LABRDW-CV16.4(H)11.5 - 15.0 %12/07/2024 1:54 PM EDTNORTOAST [facility] LABPlatelet Lcoqx560979 - 400 k/uL 12/07/2024 1:54 PM EDTNORTHCST [facility] LABMPV9.49.0 - 12.7 fL 12/07/2024 1:54 PM EDTNORTSAINT [facility] LABNeutrophils %83.0% 12/07/2024 1:54 PM EDTNORTSELECT SPECIALTY [facility] LABAbs Neut6.811.45 - 7.50 k/uL12/07/2024 1:54 PM EDTNOWEST [facility] LABLymphocytes %10.2%12/07/2024 1:54 PM EDTMAN [facility] LABAbs Lymph0.84 (L)1.00 - 4.00 k/uL12/07/2024 1:54 PM EDTNORTSELECT SPECIALTY [facility] LAB Monocytes %3.8%12/07/2024 1:54 PM EDTNOWEST [facility] LABAbs Mono0.31<0.87 k/uL12/07/2024 1:54 PM EDTNOWEST [facility] LAB Eosinophils %0.6%12/07/2024 1:54 PM [facility] LABAbs Eosin0.05<0.46 k/uL12/07/2024 1:54 PM EDTMAN [facility] Basophils %0.5%12/07/2024 1:54 PM EDTNOWEST [facility] LABAbs Baso0.04<0.11 k/uL12/07/2024 1:54 PM [facility]JE[facility] LAB Immature Granulocytes %1.9%12/07/2024 1:54 PM EDJE[facility] LABAbs Immature Gran0.16(H)<0.10 k/uL12/07/2024 1:54 PM EDTNOWEST [facility] LABNRBC0.0/100 WBC12/07/2024 1:54 PM EDJE[facility] LABAbsolute nRBC<0.01<0.01 k/uL12/07/2024 1:54 PM EDT [facility] LABDiff HcnuRblb12/03/2025 1:54 PM EDT [facility] LABSpecimen (Source)Anatomical Location / LateralityCollection Method / VolumeCollection TimeReceived TimeBloodBLOOD SPECIMEN / UnknownVenipuncture / Ekizwqa3212/07/2024 1:40 PM EDT1 1:41 PM EDT Narrative Authorizing ProviderResult TypeResult StatusViveteagan Lucio MDLABORATORYFinal ResultPerforming OrganizationAddressCity/State/ZIP CodePhone Number [facility] [address] [place] [address] * NM PET/CT SKULL-THIGH SUBSEQUENT (11/09/2024 12:10 PM EDT)Anatomical Region LateralityModalityNuclear Medicine, Nuclear MedicineSpecimen (Source) Anatomical Location / LateralityCollection Method / VolumeCollection Time Received Time11/09/2024 12:10 PM EDT Narrative 11/09/2024 1:04 PM EDT * * *Final Report* * * DATE OF EXAM: Nov ??2024 12:10PM ?? NRN ?? [id number] ??- ??NM PET/CT SKULL-THIGH SUBQ ??/ PROCEDURE REASON: Malignant neoplasm of unspecified part of unspecified bronchus or lung (HCC) ? * * * * Physician Interpretation * * * * RESULT: EXAMINATION: BODY FDG PET-CT CLINICAL HISTORY: Malignant neoplasm of unspecified part of unspecified bronchus or lung (HCC) EXAM CATEGORY: Subsequent treatment strategy. TECHNIQUE: Radiopharmaceutical was administered intravenously followed by PET imaging from the eyes to thighs. ??Free breathing, low dose CT of the same body region was acquired without IV contrast for attenuation correction and anatomic localization. ??Unenhanced imaging is limited for the evaluation of some pathology and the acquired CT was not designed to produce diagnostic CT scan quality. ??Physiologic/non-pathologic uptake in some body regions could confound or obscure some pathology. * ??CT Dose-Length Product (DLP): 229 mGy*cm * ??CT Dose Reduction Employed: Yes * ??Blood glucose: 137 mg/dL * ??Injection site: Right Forearm-Antecubital * ??Injected activity: 10.8 mCi * ??Uptake Time: 61 minutes * ??Radiopharmaceutical: B69-Cmgqnnugakgcunilhi (FDG) COMPARISON: 08/03/2024 CORRELATION: 07/29/2024 [facility] neck CTA report RESULT: REFERENCES: FDG uptake is used as a surrogate marker for glucose metabolism. ??All reported standardized uptake values represent maximum SUV (SUVmax) per body weight, unless otherwise specified. ??SUV reference values, as follows: * ??Blood Pool (Descending Aorta): SUVmax 2.3 * ??Background Liver: SUVmax 3; SUVmean 2.1 Localizer Images: [...] the level of the previously treated lesion. ??Near-complete resolved posterior left lower lobe airspace opacities. Small left pleural effusion SUV max 2.1, previously trace with SUV max 1.6. ??Small amount of fluid/density along the major fissure. Lymph Nodes: No radiotracer avid lymphadenopathy. Mediastinum: No radiotracer avid mass. Cardiovascular: Blood pool activity. ??No pericardial effusion. ??Calcified coronary and aortic atherosclerosis. Chest Wall: No radiotracer avid soft tissue lesion. ABDOMEN AND PELVIS: Hepatobiliary: No radiotracer avid lesion. ??No measurable mass. Spleen: No radiotracer avid lesion. ??No splenomegaly. Pancreas: No radiotracer avid lesion. Adrenals: No radiotracer avid nodule. Urinary Tract: Physiologic radiotracer excretion in the renal collecting systems and urinary bladder. ??No hydronephrosis. GI Tract: No radiotracer avid lesion. ??No bowel dilation. ??Colonic diverticulosis. Peritoneum: No radiotracer avid lesion. ??No ascites. Lymph Nodes: No radiotracer avid lymphadenopathy. Vasculature: Blood pool activity. ??Vascular calcifications without an abdominal aortic aneurysm. Pelvic Organs: No radiotracer avid lesion. MUSCULOSKELETAL: Bones: No radiotracer avid lesion. ??No lytic or sclerotic lesion. Soft Tissues: No radiotracer avid lesion. IMPRESSION Since 08/03/2024, PRIMARY DISEASE SITE: * ??No new/worsening focal pulmonary parenchymal abnormality. * ??Evolving left lower lobe posttreatment changes; attention on follow-up. ROWENA DISEASE: * ??No metabolically active regional lymphadenopathy. METASTATIC DISEASE: * ??No metabolically active distant metastases. ADDITIONAL FINDINGS: * ??Small mildly avid left pleural effusion slightly more conspicuous and larger compared to the prior study; attention on follow-up. Transcribe Date/Time: Nov ??2024 12:19P Dictated by: ESPINOZA MURO MD This examination was interpreted and the report reviewed and electronically signed by: ESPINOZA MURO MD on Nov ??2024 ??1:02PM ??EST Thank you for allowing us to participate in the care of your patient. Should there be any questions regarding this interpretation, please call [phone]. If you are unable to reach us at the number above, please feel free to contact [facility] at [phone]. Procedure Note Provider, [facility] [place] - 11/09/2024 * * *Final Report* * [...] * Uptake Time: 61 minutes * Radiopharmaceutical: D95-Sslumacpffdsdkddva (FDG) COMPARISON: 08/03/2024 CORRELATION: 07/29/2024 [facility] neck CTA report RESULT: REFERENCES: FDG uptake [...] Evolving left lower lobe posttreatment changes; attention onfollow-up. ROWENA DISEASE: * No metabolically active regional [...] any questions regarding this interpretation, please call [phone]. If you are unable to reach us at the number above, please feel free to contact [facility] at [phone]. Authorizing ProviderResult TypeResult StatusVivek Khadijah LAGUNASNM-PAMAFinal Result * (ABNORMAL) GLUCOSE, BLOOD (POC) (11/09/2024 10:03 AM EDT)ComponentValueRef RangeTest MethodAnalysis TimePerformed AtPathologist SignatureGlucose, Point of Asbl984(A)74 - 99 mg/dLSBeaumont HospitalComment: Location:[facility], [address] [place] [address] [place]anna Lindsay[place], [place], [address] The Accu-Chek Inform II glucose meter has not been approved for testing on patients receiving intensive medical intervention or therapy and results from this point of care glucose test should not be used for patient management decisions in these cases. ??Inaccurate results may also occur from other interfering factors, such as N-acetylcysteine (blood concentrations of greater than 5mg/dL), galactose, extremes of hematocrit (<10 or >65), or high doses of ascorbic acid (vitamin C) greater than 3mg/dL. ??Consider alternate testing mechanisms (e.g. core lab, blood gas instrument) in the above situations. Specimen (Source)Anatomical Location / LateralityCollection Method / Volume Collection TimeReceived Time11/09/2024 10:03 AM EDT Narrative Authorizing ProviderResult TypeResult StatusCcf ProviderPOC TESTINGFinal Result Performing OrganizationAddressCity/State/ZIP CodePhone Number [facility] POINT OF CARE [address] [place], [place] * (ABNORMAL) HEMOGLOBIN A1C (11/09/2024 9:56 AM EDT)ComponentValueRef RangeTest MethodAnalysis TimePerformed AtPathologist SignatureHemoglobin A1C5.9(H)4.3 - 5.6 %11/09/2024 6:43 PM EDTCWYANDOT MEMORIAL HOSPITAL LABComment:[place]izen [place] Diabetes Association guidelines indicate that patients with HgbA1c in the range 5.7-6.4% are at increased risk for development of diabetes, and intervention by lifestyle modification may be beneficial. HgbA1c greater or equal to 6.5% is considered diagnostic of diabetes.Estimated Average Glucose 123mg/dL11/09/2024 6:43 PM EDTCWYANDOT MEMORIAL HOSPITAL LABComment:eAG: (Estimated average glucose) is a calculated value from HgbA1c and is employee relations representative of the average blood glucose level in the last 2-3 month period.Specimen (Source)Anatomical Location / LateralityCollection Method / VolumeCollection TimeReceived TimeBloodBLOOD SPECIMEN / UnknownVenipuncture / Afxzrgj1011/09/2024 9:56 AM EDT11/09/2024 10:08 AM EDT Narrative Authorizing ProviderResult TypeResult StatusVivek Khadijah MDLABORATORYFinal ResultPerforming OrganizationAddressCity/State/ZIP CodePhone Number [facility] [address] [address], * EXTERNAL CARDIOLOGY (10/30/2024 9:22 AM EDT) Narrative Authorizing ProviderResult TypeResult StatusExternal Provider PA-CCARDIOLOGY Final Result * EXTERNAL LAB (10/29/2024 9:01 AM EDT) Only the most recent of3 resultswithin the time period is included. Narrative Authorizing ProviderResult TypeResult StatusExternal Provider PA-CLABORATORY Final Result * EXTERNAL IMAGING (10/29/2024 9:01 AM EDT)Anatomical RegionLateralityModality Other Narrative Authorizing ProviderResult TypeResult StatusExternal Provider PA-CRADIOLOGYFinal Result * EXTERNAL CARDIOLOGY (10/29/2024 9:01 AM EDT) Narrative Authorizing ProviderResult TypeResult StatusExternal Provider PA-CCARDIOLOGY Final Result * CT-CT angio chest PE protocol IMPORT (10/27/2024)Anatomical RegionLaterality ModalityOtherSpecimen (Source)Anatomical Location / LateralityCollection Method / VolumeCollection TimeReceived Time10/27/2024 Narrative 10/30/2024 9:08 AM EDT Images were obtained outside of [employer] Procedure Note Provider, [facility] [place] - 10/30/2024 Images were obtained outside of [employer] Authorizing ProviderResult TypeResult StatusCcf ProviderRADIOLOGYFinal Result * XR CHEST 2V FRONTAL/LAT (10/26/2024 8:52 AM EDT)Anatomical RegionLaterality ModalityChestOtherSpecimen (Source)Anatomical Location / LateralityCollection Method / VolumeCollection TimeReceived Time10/26/2024 8:51 AM EDT Impressions 10/26/2024 11:24 AM EDT IMPRESSION: Newly appearing/progression of left mid and [...] any questions regarding this interpretation, please call [phone]. If you are unable to reach us at the number above, please feel free to contact [facility]Radiology at [phone]. Narrative 10/26/2024 11:24 AM EDT * * [...] ??Mild degenerative change within the thoracic spine. Procedure Note Provider, [facility] [place] - 10/26/2024 * * *Final Report* * [...] any questions regarding this interpretation, please call [phone]. If you are unable to reach us at the number above, please feel free to contact [facility]Radiology at [phone]. Authorizing ProviderResult TypeResult StatusRoulajessica Galvez APRN.CNPRAD-PAMAFinal Result from Last 3 Months Insurance * Guarantor: Nate Pena TypeRelation to PatientDate of BirthPhone Billing AddressPersonal/ZapldyUfhk47/[birth year][address] [facility] [facility] [address] [address] [place] [address] Advance Directives TypeDate RecordedPatient RepresentativeExplanationAdvance Directive(s)11/16/2023 3:40 PMAdvance Directives- Health Carer Power of Truck Driver'S Offsider and Living Will Care Teams Team MemberRelationshipSpecialtyStart DateEnd Date Dick Boss MD [address] [place] [address] PCP - GeneralFamily Medicine10/21/23 Preston Lucio MD [address] [place] [place] [address] Hematology/Oncology11/04/23 Gerald Dumont MD [address] [address] Hematology/Oncology11/04/23 Kathy Ruiz MD [address] [place] [address] 11/04/23 Preston Lucio MD [address] [place] [address] [place] [address] PhysicianHematology/Oncology11/14/23 Michelle Galvez APRN.REGIONAL PROJECT MANAGER [address] [place] [address] [place] [address] Nurse PractitionerHematology/Oncology11/14/23 Noemy Chicas, EWELINA [address] [place] [address] [place] [address] Specialty Care CoordinatorHematology/Oncology11/14/23 Steffany Damian LSW Social Worker11/16/23 Valorie Fernandez, SOFTWARE INTEGRATION DEVELOPER.REGIONAL PROJECT MANAGER [address] [place] [address] [place] [address] Hospice & Palliative Iqscnbrh19/22/24 Anna Rasmussen RN Specialty Care CoordinatorHospice & Palliative Ihvelufx14/22/24
--- NOTE | 2024-12-31 15:50 | PM.CN ---
Consult Note: HPI Data of Consult Patient: new to practice Consult date: 12/31/24 Requesting Physician: Sariah William MD Primary Care Provider: Dick Boss MD Consult Narrative Reason for consult: left chest pain Narrative: 69yom who presents for evaluation. history of left chest pain that began after radiation treatment for lung mass. notes persistence of burning in left anterior chest. current uses norco, steroid. denies adverse med side effects. has continued in a series of provider directed home exercises >6 weeks, without lasting benefit. cc:: CC: Sariah William MD Review of Systems ROS Status of ROS 10 or more systems reviewed and unremarkable except as noted in history and below Meds Home Medications and Allergies Home Medications ?Medication ?Instructions ?Recorded ?Confirmed ?Type albuterol sulfate 90 mcg/actuation 2 puff inhalation Q4H PRN 07/31/23 07/31/23 History aerosol inhaler shortness of breath or wheezing atorvastatin 40 mg tablet 40 mg PO DAILY 07/31/23 07/31/23 History cilostazol 100 mg tablet 100 mg PO BID 07/31/23 07/31/23 History hydrochlorothiazide 50 mg tablet 50 mg PO QAM 07/31/23 07/31/23 History hydrocodone 7.5 mg-acetaminophen 1 tab PO Q6H PRN pain 07/31/23 07/31/23 History 325 mg tablet levothyroxine 175 mcg tablet 175 mcg PO QAM 07/31/23 07/31/23 History (Synthroid) losartan 100 mg tablet 100 mg PO DAILY 07/31/23 07/31/23 History meloxicam 15 mg tablet 15 mg PO DAILY PRN pain #10 tabs 07/31/23 Rx terazosin 1 mg capsule 1 mg PO QPM 07/31/23 07/31/23 History Allergies Allergy/AdvReac Type Severity Reaction Status Date / Time Sulfa (Sulfonamide Allergy Mild Rash Verified 07/31/23 11:20 Antibiotics) Exam Narrative Exam Narrative: Psych-alert and oriented x 3. Attentive and appropriate, constitutionally normal, displays normal mood and affect per situation. There are no obvious deficits in memory, reasoning, or intellect.? Skin-no obvious rashes, bruising, erythema noted to the patient's area of pain.? Extremities- extremities are warm with minimal edema and palpable pulses. Thoracic-tenderness to palpation noted in the thoracic spine and paraspinal musculature. Sensory-no notable sensory deficits to touch or pinprick in all dermatomal distributions with the exception to decreased sensation to the left T7, 8, 9, 10 dermatomal distribution Coordination remains intact.? Gait remains non-antalgic. Assessment and Plan Assessment and Plan (1) Intercostal neuralgia: (2) Thoracic stenosis: Plan 69yom who presents for evaluation. failed conservative measures, as noted. given history and worsening symptoms, coupled with lack of response to more conservative measures, will order left t7, 8, 9 intercostal nerve block. will also order thoracic mri without contrast to ensure no other spinal pathology, given history of lung mass. meds reviewed, no changes. follow up after procedure and imaging.
== END 2024-12-31 14:25 | disposition home or self-care (01) ==
PROVIDERS: PCP Family Medicine; Visit Provider Anesthesiology
DX: G58.0 Intercostal neuropathy (principal); M48.04 Spinal stenosis, thoracic region
CPT/HCPCS: G0463

== ENCOUNTER 2025-01-04 13:44 | Outpatient (OUT) | payer MEDICARE, SELFPAY ==
--- OUTSIDE RECORDS SUMMARY | 2025-01-04 13:47 | XMS_ITS ---
Author Organization [facility] Address [address] [place] [address] Care Team Providers Care Drafter Detail Name Role Phone Dick Boss MD Primary Care Provider Preston Lucio MD Unavailable [phone] Gerald Dumont MD Unavailable Kathy Ruiz MD Unavailable [phone] Preston Lucio MD Unavailable [phone] Michelle Galvez RN MDS.LABORATORY MILLER Unavailable Noemy Chicas RN Unavailable Steffany Damian Unavailable Unavailable Valorie Fernandez RN MDS.LABORATORY MILLER Unavailable + Anna Rasmussen RN Unavailable Unavail able Active Problems ProblemNoted DateDiagnosed JlffAivgrgogfkigr27/02/2024Mixed hyperlipidemia 10/26/2023 Assessment & Plan (10/26/2023 2:40 PM EDT): Assessment: Controlled with statin. Monitored per PCP. Chronic pain ccihplov72/21/2024 Assessment & Plan (10/26/2023 2:56 PM EDT): Assessment: Managed with hydrocodone, takes 1-2 per day. Mhqpckkzczr16/21/2024 Assessment & Plan (10/26/2023 2:59 PM EDT): Assessment: On metformin History of htcbajwyhl04/21/2024 Assessment & Plan (10/26/2023 3:11 PM EDT): Assessment: CSF leak Malignant neoplasm of upper lobe of left lung10/23/2023 Cancer Staging: Clinical stage from 10/21/2023:Stage IIB(cT3, cN0, cM0) - Unsigned Chronic obstructive pulmonary sulxxwi6510/20/2023 Assessment & Plan (10/26/2023 2:34 PM EDT): [...] Benign prostatic hyperplasia with lower urinary tract /11/2023 Overview (10/26/2023): Last Assessment & Plan: Occasional symptoms but tolerable and continue terazosin. Right internal carotid /12/2022PAD (peripheral artery disease) 05/04/2021 Overview (10/26/2023): Last Assessment & Plan: Symptoms stable and follow up with vascular. Assessment & Plan (10/26/2023 2:54 PM EDT): Assessment: Known blockage - on baby ASA - following with vascular surgery Hypothyroidism, postradioiodine phzfwmo5904/29/2016 Overview (10/26/2023): Last Assessment & Plan: Medication adjusted and repeat labs next month. Assessment & Plan (10/26/2023 2:35 PM EDT): Assessment: Stable on Levothyroxine (Synthroid) Cigarette wuhkuv7504/14/2016 Assessment & Plan (10/26/2023 2:35 PM EDT): Assessment: Recently quit - 4 weeks ago (09/2023) using nicotine patches Other affections of shoulder region, not elsewhere eyezvwixiy64/08/2013 Jgvwlyspoovy95/12/2012 Overview (02/16/2012): At knees Hx of fusion of cervical spine02/16/2012Essential lkszpettkmzy89/19/2011 Overview (10/26/2023): Last Assessment & Plan: BP [...]
--- OUTSIDE RECORDS SUMMARY | 2025-01-04 13:47 | XMS_ITS | Clinical Summary ---
Author Organization [facility] Address [address] [place] [address] Phone Care Team Providers Care Macadam Raker Name Role Phone Mikhail Vega MD Primary Care Provider + Social History Tobacco UseTypesPacks/DayYears UsedDateSmoking Tobacco: Never AssessedSex and Gender InformationValueDate RecordedSex Assigned at BirthNot on fileLegal Sex Male01/29/2022 11:51 AM ESTGender IdentityNot on fileSexual OrientationNot on file Last Filed Vital Signs Vital SignReadingTime TakenCommentsBlood Imsaixar901/8403 11:27 AM EDT Flydt5533 11:27 AM EDTTemperature--Respiratory Ztue3889 11:27 AM EDTOxygen Mwhhrxzcrc92%05/16/2019 11:27 AM EDTInhaled Oxygen Concentration-- Phjgij08.1 kg (185 lb 6.2 oz)05/16/2019 11:27 AM EGFWstcqv789.6 cm (5' 6 ) 05/16/2019 11:27 AM EDTBody Mass Index29.9203 11:27 AM EDT Plan of Treatment Not on file Care Teams Team MemberRelationshipSpecialtyStart DateEnd Date Mikhail Vega MD [address] [place] [address] PCP - Kwvpdgv72/12/15
--- OUTSIDE RECORDS SUMMARY | 2025-01-04 13:47 | XMS_ITS | Clinical Summary ---
Author Organization [facility] Address [id number] [place] [address] Care Team Providers Care Machine Hamper Maker Name Role Phone Dick Boss MD Primary Care Provider [phone] Allergies Active AllergyReactionsCriticalityNoted DateCommentsSulfa (Sulfonamide Antibiotics)07/17/2018 Medications [...] tablet 5Active Active Problems ProblemNoted DateDiagnosed DateMixed inucxmmtnfxqpu16/30/2024Malignant neoplasm of upper lobe of left lung12/09/2024Chemotherapy-induced ufdaajixlr27/24/2024 Chronic obstructive pulmonary zahkgno5610/20/2023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10/12/2023 Overview (04/18/2024): Last Assessment & Plan: Pathology showed cancer and follow up with oncology as scheduled. Left-sided ehdrnbnq64/23/2024enign prostatic hyperplasia with lower urinary tract yujejgkr08/11/2023 Overview (04/18/2024): Last Assessment & Plan: Occasional symptoms but tolerable and continue terazosin. Eusyocpiveaw28/28/2022Occlusive disease, cirdcxpf81/28/2022AD (peripheral artery disease)05/04/2021 Overview (04/18/2024): Last Assessment & Plan: Symptoms stable and follow up with vascular. Bilateral carotid artery qibqqgwz45/23/2021Temporal dgejnjszatjrn25/16/2019 Idjmbkcfujihag80/13/2019Postviral fatigue djuhrody50/13/2019Essential noiqrytsqkxf02/13/2019Infectious colitis, enteritis and gastroenteritis 07/17/2018Hypothyroidism, postradioiodine mlyvnig1204/29/2016 Overview (04/18/2024): Last Assessment & Plan: Medication adjusted and repeat labs next month. Other affections of shoulder region, not elsewhere jfjocnemsn81/08/2013 Gyurcyhlrzju95/12/2012 Overview (10/18/2019): At knees Hx of fusion of cervical spine02/16/2012 Resolved Problems ProblemNoted DateDiagnosed DateResolved DateLung massight internal carotid gxbgzvcnd56Essential rjwlnfdrakgg84/19/2011 03/05/20240183Toqcpymgvhztwp83/19/201112/30/2024 Encounters DateTypeDepartmentCare XromSchjmmfxxbf50/03/2025Refill [facility] [address] [place] [address] Kyaw Hightower, SAP BASIS ARCHITECT-OUTER DIAMETER GRINDER TOOL Essential hypertension; Bilateral carotid artery stenosis; Occlusive disease, arterialfrom Last 3 Months Family History Medical HistoryRelationNameCommentsHeart diseaseFatherHypertensionFatherStroke MotherRelationNameStatusCommentsFatherDeceasedMotherDeceased Social History Tobacco UseTypesPacks/DayYears UsedDateSmoking Tobacco: FormerCigarettes0.850.6 1973 - 09/29/2023Smokeless Tobacco: Never Tobacco Cessation:Counseling Given: Not Answered Alcohol UseStandard Drinks/WeekCommentsYes0 (1 standard drink = 0.6 oz pure alcohol)moderateAHC UtilitiesAnswerDate RecordedIn the past 12 months has the [employer], gas, oil, or water [employer] threatened to shut off services in your [...] as a part of a household?No09/27/2023hildcareAnswer Date ZyngxqfpLsbiyalemXjkcmez50/12/2019EmploymentAnswerDate RecordedEmployment Lnhynxy0908/16/2018Hunger ScreeningAnswerDate RecordedWithin the past 12 months we worried whether our food would run out before we got money to buy more.Never True09/26/2024Within the past 12 months the food we bought just didn't last and we didn't have money to get more.Never True09/26/2024Purpose - LifeAnswerDate RecordedPurpose and direction in oiykPggpzkn88/11/2021ex and Gender Information ValueDate RecordedSex Assigned at BirthNot on fileLegal JcnGcxm4410/10/2014 11:24 AM EDTGender IdentityNot on fileSexual OrientationNot on file Last Filed Vital Signs Vital SignReadingTime TakenCommentsBlood Owlsvnxo112/6807 1:36 PM EDT Tnmhb968509/26/2024 1:36 PM VCMJwwsuinuqfi54.8 ??C (98.2 ??F)07/31/2024 4:02 PM EDTRespiratory Mzpk708607/31/2024 4:45 PM EDTOxygen Luycjpizpq63%09/26/2024 1:36 PM EDTInhaled Oxygen Concentration--Liintf83.8 kg (176 lb)09/26/2024 1:36 PM EDT Aynhlt149.6 cm (5' 6 )09/26/2024 1:36 PM EDTBody Mass Index28.41009/26/2024 1:36 PM EDT Plan of Treatment DateTypeDepartmentCare Team (Latest Contact Info)Gymrmvkyekb38/04/2025 8:30 AM ESTAppointment [facility] [address] [place] [address] Bina Resendiz, DO [address] [place] [address] 02/11/2025 9:30 AM ESTOffice Visit [facility] [address] [place] [address] Bina Resendiz, DO [address] [place] [address] Health MaintenanceDue DateLast DoneCommentsStatin Use: Hcdstognsbxbrq20/29/1956 Depression Xoemgobtd90/29/1968Adult BMI Follow Up Plan12/03/1973DTaP,Tdap and Td Vaccines (1 - Tdap)12/03/1974Abdominal Aortic Aneurysm (AAA) Rgldso5112/03/2020 Fall Risk Vkjargnpz32/29/2021OVID-19 Vaccine ( season)2024 02/18/2021, 06/02/2020, 05/02/2020Influenza Kvhquxu5011/05/2024dult BMI Screening Tobacco Zljraxqxf78/23/60169509/26/2024Zoster (Shingles) TkbjjyrXzgnnbqhq88/16/2019, 07/02/2018 Goals GoalPatient Goal TypeAssociated ProblemsRecent ProgressPatient-Stated?Author [...]
--- OUTSIDE RECORDS SUMMARY | 2025-01-04 13:47 | XMS_ITS | Clinical Summary ---
Author Organization [facility] Address [address] [place] [address] Care Team Providers Care Custom Stock Maker Name Role Phone Dick Boss MD Primary Care Provider [phone] Preston Lucio MD Unavailable [phone] Gerald Dumont MD Unavailable Kathy Ruiz MD Unavailable [phone] Preston Lucio MD Unavailable Michelle Galvez HVAC TECHNICIAN.OFFICIAL COURT INTERPRETER Unavailable Noemy Chicas RN Unavailable [phone] Steffany Damian Unavailable Unavailable Valorie Fernandez HVAC TECHNICIAN.OFFICIAL COURT INTERPRETER Unavailable + Anna Rasmussen RN Unavailable Unavail able Allergies Active AllergyReactionsCriticalityNoted DateCommentsGabapentinIntolerance 02/08/2024 Causes Altered mental Status Sulfa (Sulfonamide Antibiotics)PiiieikJzlg48/10/2012 Unkown, was a child Medications MedicationSigDispense QuantityRefillsLast [...] 12:40 PM EDTDiscontinued Active Problems ProblemNoted DateDiagnosed TacyLimbeaxihjysz63/02/2024Mixed hyperlipidemia 10/26/2023 Assessment & Plan (10/26/2023 2:40 PM EDT): Assessment: Controlled with statin. Monitored per PCP. Chronic pain eoxonrsc28/21/2024 Assessment & Plan (10/26/2023 2:56 PM EDT): Assessment: Managed with hydrocodone, takes 1-2 per day. Ojtgguyjvzl53/21/2024 Assessment & Plan (10/26/2023 2:59 PM EDT): Assessment: On metformin History of ugsmskyoke73/21/2024 Assessment & Plan (10/26/2023 3:11 PM EDT): Assessment: CSF leak Malignant neoplasm of upper lobe of left lung10/23/2023 Cancer Staging: Clinical stage from 10/21/2023:Stage IIB(cT3, cN0, cM0) - Unsigned Chronic obstructive pulmonary oidbknl4110/20/2023 Assessment & Plan (10/26/2023 2:34 PM EDT): [...] Benign prostatic hyperplasia with lower urinary tract pbosouaw51/11/2023 Overview (10/26/2023): Last Assessment & Plan: Occasional symptoms but tolerable and continue terazosin. Right internal carotid vcmkdhqem35/12/2022AD (peripheral artery disease) 05/04/2021 Overview (10/26/2023): Last Assessment & Plan: Symptoms stable and follow up with vascular. Assessment & Plan (10/26/2023 2:54 PM EDT): Assessment: Known blockage - on baby ASA - following with vascular surgery Hypothyroidism, postradioiodine oqduolf8004/29/2016 Overview (10/26/2023): Last Assessment & Plan: Medication adjusted and repeat labs next month. Assessment & Plan (10/26/2023 2:35 PM EDT): Assessment: Stable on Levothyroxine (Synthroid) Cigarette tefrym0804/14/2016 Assessment & Plan (10/26/2023 2:35 PM EDT): Assessment: Recently quit - 4 weeks ago (09/2023) using nicotine patches Other affections of shoulder region, not elsewhere chwucqexft69/08/2013 Sjhpoppzqles50/12/2012 Overview (02/16/2012): At knees Hx of fusion of cervical spine02/16/2012Essential iudejbpbixqa20/19/2011 Overview (10/26/2023): Last Assessment & Plan: BP controlled and monitor PRN. Assessment & Plan (10/26/2023 2:40 PM EDT): Assessment: Stable and compliant with medications Followed by PCP Last 5 Encounter BP Readings: Date: BP: 10/26/2023 136/74 10/21/2023 136/72 02/16/2012 147/76 10/15/2011 144/80 Encounters DateTypeDepartmentCare HprsZfdwvzkttsk60/13/2025Telephone Hematology/Oncology [address] [place] [address] [place] [address] Noemy Chicas, RN Care Coordination (Lung Pain)12/07/2024 2:00 PM EDTVisit (SP) Office Hematology/Oncology [address] [place] [address] [place] [address] [address].OFFICIAL COURT INTERPRETER Malignant neoplasm of unspecified part of unspecified bronchus or lung (HCC) (Primary Dx); Radiation-induced pulmonary fibrosis (HCC); Radiation induced neuropathy (HCC); Malaise and fatigue; Malignant neoplasm of lower lobe, left bronchus or lung (HCC); emt intermediate (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; Hyperglycemia; Iatzedtbyqq88/26/2025 8:30 AM EDTOffice Visit Palliative Medicine [address] [place] [address] [place] [address] Valorie Fernandez, HVAC TECHNICIAN.OFFICIAL COURT INTERPRETER Palliative care by specialist (Primary Dx); Radiation-induced pulmonary fibrosis (HCC); Malignant neoplasm of unspecified part of unspecified bronchus or lung (HCC); Neuralgia; Neuropathy due to chemotherapeutic drug (HCC); 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 condition; [facility] (current) use of systemic /26/7101Fpcgfe41/19/2025 1:30 PM EDTVisit (SP) Office Hematology/Oncology [address] [place] [address] [place] [address] [address] Givens APRN.OFFICIAL COURT INTERPRETER Radiation-induced pulmonary fibrosis (HCC) (Primary Dx); Malignant neoplasm of unspecified part of unspecified bronchus or lung (HCC); Pleural effusion, not elsewhere classified; Shortness of breath; Malaise and fatigue; Radiation induced neuropathy (HCC); emt intermediate (current) use of systemic ufmqlkjw73/19/5798Iiykuf80/12/2025 11:00 AM EDTOffice Visit Radiation Oncology [address] [place] [address] [place] [address] Jack Kc MD Malignant neoplasm of upper lobe of left lung (HCC) (Primary Dx)11/09/2024 11:45 AM EDTVisit (SP) Office Hematology/Oncology [address] [place] [address] [place] [address] Preston Lucio MD Radiation-induced pulmonary fibrosis (HCC) (Primary Dx); Malignant neoplasm of unspecified part of unspecified bronchus or lung (HCC); Neuralgia; Pleural effusion, not elsewhere classified; Herpes zoster without complications; Encounter for follow-up examination after completed treatment for malignant neoplasm; [facility] (current) use of systemic rawsutub67/05/2025 9:55 AM EDT - 11/09/2024 11:59 PM EDTHospital Encounter Radiology Pet CT [address] [place] [address] Malignant neoplasm of unspecified part of unspecified bronchus or lung (HCC) [C34.90] Discharge Disposition: Home11/09/2024Telephone Cancer Appts [address] [place] [address] Preston Lucio MD Hjsidge7411/09/20243143Uuqblh48/02/2025Telephone Hematology/Oncology [address] [place] [address] [place] [address] Noemy Chicas, RN Care Coordination (Lung Pain)10/30/2024Telephone Hematology/Oncology [address] [place] [address] [place] [address] Noemy Chicas, RN Care Coordination (Discharge Follow Up Call )10/29/2024H&P External-NonCCF Provider, External, PAEdwardC 10/29/2024Telephone Hematology/Oncology [address] [place] [address] [place] [address] Noemy Chicas, RN Care Coordination (Hospital Admission)10/26/2024 8:00 AM EDT - 10/26/2024 11:59 PM EDTHospital Encounter Radiology [address] [facility] [place] [address] Radiation-induced pulmonary fibrosis (HCC) [J70.1] Discharge Disposition: Home10/25/2024Telephone Hematology/Oncology [address] [facility] [place] [address] Noemy Chicas, RN Care Coordination (Lung Pain)from [...] drink = 0.6 oz pure alcohol)PHQ-2AnswerDate RecordedPHQ-2 djkbj7795Area Deprivation Index AnswerDate RecordedNational Score (1-100), lower number is lower risk75 10/21/2023State Score (1-10), lower number is lower wxiu5304Data from: https://www.neighborhoodatlas.medicine.[facility].edu/. Last address used for [address] [place] [address]10/21/2023Sex and Gender InformationValueDate RecordedSex Assigned at BirthNot on fileLegal YxjMbpx00/02/2012 10:16 AM EST Gender IdentityNot on fileSexual OrientationNot on file Last Filed Vital Signs Vital SignReadingTime TakenCommentsBlood Uchuojnc329/7410 2:07 PM EDT Wvtdq7397 2:07 PM HCRMsomysxlsbj92.5 ??C (97.7 ??F)12/07/2024 2:07 PM EDTRespiratory Hkep5468 2:07 PM EDTOxygen Jldvcjgaiv80%12/07/2024 2:07 PM EDTInhaled Oxygen Concentration--Zukllw13 kg (191 lb 12.8 oz)12/07/2024 2:07 PM HLHBlgnpi279.5 cm (5' 5.55 )12/07/2024 2:07 PM EDTBody Mass Index31.38 12/07/2024 2:07 PM EDT Plan of Treatment DateTypeDepartmentCare Team (Latest Contact Info)Cfzwymroavc15/29/2025 8:00 AM ESTAppointment Radiology Pet CT [address] [facility] [place] [address] PET03/11/2025 2:00 PM ESTVisit (SP) Office Hematology/Oncology [address] [facility] [place] [place] [address] Preston Lucio MD [address] [place] [address] [place] [address] FOLLOW UP AFTER PET SCANHealth MaintenanceDue DateLast DoneCommentsAnnual PCP Team Chronic Disease Visit12/03/1973Depression Xoxuxqmgc21/29/1974Hepatitis C Baolivmwg06/29/1974DTaP,Tdap,Td Vaccine (1 - Tdap)12/03/1974CT Colonography 12/03/2000Cologuard (FIT-DNA)12/03/2000Fecal Occult Blood12/03/2000Sigmoidoscopy 12/03/2000RSV Vaccine (1 - Risk 60-74 years 1-dose series)2015Colonoscopy Colorectal Cancer Yitpohzlx50/29/2017Advance Directive Cxnxjhjumd35/01/2025Medicare Advantage Annual Wellness Visit03/07/2024ovid-19 Vaccine ( season), 06/02/2020, 05/02/2020 Influenza Vaccine (#1)2024Diabetes Fwszwairk94, 11/23/2024, 11/09/2024, Additional history existsLipid Wfnhtwopm56/24/2029 09/28/2023Shingrix YbhrgtiSufltecdb57/16/2019, 07/02/2018Pneumococcal Vaccine: 50+Ncwolghsg18/11/2023, 08/04/2016, 12/16/2014bdominal Aortic Aneurysm IctjdfyzqPndkjyjfw48/23/2024 Procedures Procedure NamePriorityDate/TimeAssociated DiagnosisCommentsTSH BLDRoutine 12/07/2024 1:40 PM EDT Malignant neoplasm of upper lobe of left lung (HCC) Abnormal blood chemistry Malaise and fatigue CORTISOL LABGntmupl91/03/2025 1:40 PM EDT Malignant neoplasm of upper lobe of left lung (HCC) Abnormal blood chemistry Malaise and fatigue CBC + SRMRZwfwdmr55/03/2025 1:40 PM EDT Malignant neoplasm of upper lobe of left lung (HCC) Abnormal blood chemistry Malaise and fatigue COMPREHENSIVE METABOLIC UVNUTVovyhwx58/03/2025 1:40 PM EDT Malignant neoplasm of upper lobe of left lung (HCC) Abnormal blood chemistry Malaise and fatigue CBC + QCTMWeuygqh50/19/2025 3:29 PM EDT Radiation-induced pulmonary fibrosis (HCC) COMPREHENSIVE METABOLIC PTQCVJlkxdfg16/19/2025 3:10 PM EDT Malignant neoplasm of upper lobe of left lung (HCC) Abnormal blood chemistry Malaise and fatigue TSH DHMSwesdkc83/19/2025 3:03 PM EDT Malignant neoplasm of upper lobe of left lung (HCC) Abnormal blood chemistry Malaise and fatigue CORTISOL EONRkhhxov06/19/2025 3:03 PM EDT Malignant neoplasm of upper lobe of left lung (HCC) Abnormal blood chemistry Malaise and fatigue CBC + IPCUDeerdgm19/19/2025 2:33 PM EDT Malignant neoplasm of upper lobe of left lung (HCC) Abnormal blood chemistry Malaise and fatigue NM PET/CT SKULL-THIGH VVTANXVTGDWkzeavp36/05/2025 12:10 PM EDT Malignant neoplasm of unspecified part of unspecified bronchus or lung (HCC) GLUCOSE, BLOOD (POC)Ogiqizo7811/09/2024 10:03 AM EDT COMPREHENSIVE METABOLIC WIASGOjeodsw63/05/2025 9:56 AM EDT Malignant neoplasm of unspecified part of unspecified bronchus or lung (HCC) CBC + TGRLQdcqevq31/05/2025 9:56 AM EDT Malignant neoplasm of unspecified part of unspecified bronchus or lung (HCC) HEMOGLOBIN G7FAoniuce35/05/2025 9:56 AM EDT Malignant neoplasm of unspecified part of unspecified bronchus or lung (HCC) Immunotherapy Abnormal blood chemistry CORTISOL CQDQlzydql68/05/2025 9:56 AM EDT Malignant neoplasm of unspecified part of unspecified bronchus or lung (HCC) Immunotherapy Malaise and fatigue Abnormal blood chemistry TSH NHFWnjvaig33/05/2025 9:56 AM EDT Malignant neoplasm of unspecified part of unspecified bronchus or lung (HCC) Immunotherapy Malaise and fatigue EXTERNAL OCEFWMERAE94/26/2025 9:22 AM EDT EXTERNAL LAB10/29/2024 9:01 AM EDT EXTERNAL KGMCYML5110/29/2024 9:01 AM EDT EXTERNAL LAB10/29/2024 9:01 AM EDT EXTERNAL LAB10/29/2024 9:01 AM EDT EXTERNAL KTHXVDDNUP48/25/2025 9:[address] OUTSIDE CD DICOM MMGCAH0410/27/2024 XR CHEST 2V FRONTAL/BNCNjtchsc88/22/2025 8:52 AM EDT Radiation-induced pulmonary fibrosis (HCC) Shortness of breath from Last 3 Months Results * THYROID STIMULATING HORMONE (12/07/2024 1:40 PM EDT) Only the most recent of3 resultswithin the time period is included. ComponentValueRef RangeTest MethodAnalysis TimePerformed AtPathologist Signature TSH0.8210.270 - 4.200 mIU/L1 6:21 AM [facility] LABSpecimen (Source)Anatomical Location / LateralityCollection Method / Volume Collection TimeReceived TimeBloodBLOOD SPECIMEN / UnknownVenipuncture / Unknown 12/07/2024 1:40 PM EDT1 1:41 PM EDT Narrative Authorizing ProviderResult TypeResult StatusPreston Lucio MDLABORATORYFinal ResultPerforming OrganizationAddressCity/State/ZIP CodePhone Number [facility] [address] * (ABNORMAL) CORTISOL, SERUM (12/07/2024 1:40 PM EDT) Only the most recent of3 resultswithin the time period is included. ComponentValueRef RangeTest MethodAnalysis TimePerformed AtPathologist Signature Cortisol1.4(L)4.8 - 19.5 ug/dL12/08/2024 6:21 AM [facility] LABComment: Provided reference range is from 6-10 AM sample collection time. Cortisol Reference Range: 6-10 AM = 4.8-19.5 ug/dL, 4-8 PM = 2.5-11.9 ug/dL Specimen (Source)Anatomical Location / LateralityCollection Method / Volume Collection TimeReceived TimeBloodBLOOD SPECIMEN / UnknownVenipuncture / Unknown 12/07/2024 1:40 PM EDT1 1:41 PM EDT Narrative Authorizing ProviderResult TypeResult StatusPreston Lucio MDLABORATORYFinal ResultPerforming OrganizationAddressCity/State/ZIP CodePhone Number [facility] [address] [facility] [address] [place] [address], [place] * (ABNORMAL) COMPREHENSIVE METABOLIC PANEL (12/07/2024 1:40 PM EDT) Only the most recent of3 resultswithin the time period is included. ComponentValueRef RangeTest MethodAnalysis TimePerformed AtPathologist Signature Protein, Total7.06.3 - 8.0 g/dL12/07/2024 2:28 PM EDTNORTSTRA[facility] FOR [facility] LABAlbumin4.73.9 - 4.9 g/dL12/07/2024 2:28 PM EDTSUMM[facility] LABCalcium, Total9.88.5 - 10.2 mg/dL12/07/2024 2:28 PM EDT [facility] LABBilirubin, Total0.40.2 - 1.3 mg/dL 12/07/2024 2:28 PM EDTSUMMERSVILLE [facility] LABAlkaline Phosphatase 6638 - 113 U/L1 2:28 PM EDTNORTSTRAITH [facility] SGJOQC6952 - 40 U/L1 2:28 PM EDTNORTSTRAITH [facility] FOR [facility] BBFVXR9219 - 54 U/L1 2:28 PM EDTNORTSTRAITH [facility] FOR [facility] FPOGpozxls382(H)74 - 99 mg/dL12/07/2024 2:28 PM EDTRTSTRAITH HOSPITAL FOR SPECIAL SUR[facility] LABComment: The [place] Diabetes Association (ADA) provides guidance for cutoff [...] Standards of Medical Care in Diabetes 2016, [place] Diabetes Association. Diabetes Care. 2016.39(Suppl 1). VCV544 - 24 mg/dL12/07/2024 2:28 PM EDTSUMMERSV[facility]LE [facility] LAB Creatinine0.760.73 - 1.22 mg/dL12/07/2024 2:28 PM EDTNORTSTRAITH HOSPITAL FOR [facility]ERY COBHkxxlg360487 - 144 mmol/L1 2:28 PM EDJ.[facility] LABPotassium4.13.7 - 5.1 mmol/L1 2:28 PM EDJ.W. [facility] UFTFutbwrof28(L)98 - 107 mmol/L1 2:28 PM EDT [facility] EETFE31722 - 30 mmol/L1 2:28 PM EDT [facility] LABAnion Xxf775 - 15 mmol/L1 2:28 PM [facility] LABEstimated Glomerular Filtration Rate97 >=60 mL/min/1.73m 12/07/2024 2:28 PM [facility] LABComment:Estimated Glomerular Filtration Rate (eGFR) is [...] VolumeCollection TimeReceived TimeBloodBLOOD SPECIMEN / UnknownVenipuncture / Jwqbuzx6312/07/2024 1:40 PM EDT1 1:41 PM EDT Narrative Authorizing ProviderResult TypeResult StatusViveteagan Lucio MDLABORATORYFinal ResultPerforming OrganizationAddressCity/State/ZIP CodePhone Number [facility] [address] [place] [address] * (ABNORMAL) COMPLETE BLOOD COUNT AND DIFFERENTIAL (12/07/2024 1:40 PM EDT) Only the most recent of4 resultswithin the time period is included. ComponentValueRef RangeTest MethodAnalysis TimePerformed AtPathologist Signature WBC8.213.70 - 11.00 k/uL12/07/2024 1:54 PM EDTNORTHCOAST [facility] LABRBC4.214.20 - 6.00 m/uL12/07/2024 1:54 PM EDTNORTSTRAITH [facility] BQDSncenudfre50.6(L)13.0 - 17.0 g/dL12/07/2024 1:54 PM EDTNOPRINCET[facility] MPQXuggfvfgke03.6(L)39.0 - 51.0 %12/07/2024 1:54 PM EDT [facility] UOHNOU26.380.0 - 100.0 fL12/07/2024 1:54 PM EDTNORTSTRAITH [facility] SWJUTO62.926.0 - 34.0 pg12/07/2024 1:54 PM EDTNORTSTRAITH [facility] ITKMCZN87.530.5 - 36.0 g/dL12/07/2024 1:54 PM EDTNORTSTRAITH [facility] LABRDW-CV16.4(H)11.5 - 15.0 %12/07/2024 1:54 PM EDTNORTOAST [facility] LABPlatelet Mmlvq815625 - 400 k/uL 12/07/2024 1:54 PM EDTNORTSTRAITH [facility] LABMPV9.49.0 - 12.7 fL 12/07/2024 1:54 PM EDTNORTSTRAITH [facility] LABNeutrophils %83.0% 12/07/2024 1:54 PM EDTNORTSTRAITH [facility]ITAL FOR [facility] LABAbs Neut6.811.45 - 7.50 k/uL12/07/2024 1:54 PM EDTNOPRINCETON [facility] LABLymphocytes %10.2%12/07/2024 1:54 PM EDTSUMMERSVILLE [facility] LABAbs Lymph0.84 (L)1.00 - 4.00 k/uL12/07/2024 1:54 PM EDTNOPRINCETON [facility] LAB Monocytes %3.8%12/07/2024 1:54 PM EDTNORTSTRAITH [facility] FOR [facility] LABAbs Mono0.31<0.87 k/uL12/07/2024 1:54 PM EDTNOPRINCETON [facility] LAB Eosinophils %0.6%12/07/2024 1:54 PM EDTNOPRINCETON [facility] LABAbs Eosin0.05<0.46 k/uL12/07/2024 1:54 PM EDTSUM[facility] LAB Basophils %0.5%12/07/2024 1:54 PM EDTNOPRINCETON [facility] LABAbs Baso0.04<0.11 k/uL12/07/2024 1:54 PM EDTSUMM[facility]LE [facility] Immature Granulocytes %1.9%12/07/2024 1:54 PM EDJ.W. [facility] LABAbs Immature Gran0.16(H)<0.10 k/uL12/07/2024 1:54 PM EDTSUMMERSVILLE [facility] LABNRBC0.0/100 WBC12/07/2024 1:54 PM EDJ.W. [facility] LABAbsolute nRBC<0.01<0.01 k/uL12/07/2024 1:54 PM EDT [facility] LABDiff CrsgVgzg31/03/2025 1:54 PM EDT [facility] LABSpecimen (Source)Anatomical Location / LateralityCollection Method / VolumeCollection TimeReceived TimeBloodBLOOD SPECIMEN / UnknownVenipuncture / Rzgnmbt8212/07/2024 1:40 PM EDT1 1:41 PM EDT Narrative Authorizing ProviderResult TypeResult StatusPreston Lucio MDLABORATORYFinal ResultPerforming OrganizationAddressCity/State/ZIP CodePhone Number [facility] [address] [place] [address] * NM PET/CT SKULL-THIGH SUBSEQUENT (11/09/2024 12:10 [...] * ??Uptake Time: 61 minutes * ??Radiopharmaceutical: W55-Smjexlekfbgqaoeerl (FDG) COMPARISON: 08/03/2024 CORRELATION: 07/29/2024 OS neck CTA report RESULT: REFERENCES: FDG uptake [...] any questions regarding this interpretation, please call [phone]. If you are unable to reach us at the number above, please feel free to contact [facility] at [phone]. Procedure Note Provider, [facility] - 11/09/2024 * * *Final Report* * [...] * Uptake Time: 61 minutes * Radiopharmaceutical: V03-Naagdrhaaojrlxxbje (FDG) COMPARISON: 08/03/2024 CORRELATION: 07/29/2024 [facility] neck CTA report RESULT: REFERENCES: FDG uptake [...] any questions regarding this interpretation, please call [phone]. If you are unable to reach us at the number above, please feel free to contact [facility]Radiology at [phone]. Authorizing ProviderResult TypeResult StatusViveteagan Lucio MDNM-PAMAFinal Result * (ABNORMAL) GLUCOSE, BLOOD (POC) (11/09/2024 10:03 AM EDT)ComponentValueRef RangeTest MethodAnalysis TimePerformed AtPathologist SignatureGlucose, Point of Rwak576(A)74 - 99 mg/dLSKarmanos Cancer CenterComment: Location:[facility], [address] [place] [address] [place], [place], [address] The Accu-Chek Inform II glucose meter has [...] ProviderPOC TESTINGFinal Result Performing OrganizationAddressCity/State/ZIP CodePhone Number [facility] POINT OF CARE [facility] [address] [place], [place] * (ABNORMAL) HEMOGLOBIN A1C (11/09/2024 9:56 AM EDT)ComponentValueRef RangeTest MethodAnalysis TimePerformed AtPathologist SignatureHemoglobin A1C5.9(H)4.3 - 5.6 %11/09/2024 6:[address] [facility] LABComment:[place] Diabetes Association guidelines indicate that patients with HgbA1c in the range 5.7-6.4% are at increased risk for development of diabetes, and intervention by lifestyle modification may be beneficial. HgbA1c greater or equal to 6.5% is considered diagnostic of diabetes.Estimated Average Glucose 123mg/dL11/09/2024 6:[address] [facility] LABComment:eAG: (Estimated average glucose) is a calculated value from HgbA1c and is branch customer service representative of the average blood glucose level in the last 2-3 month period.Specimen (Source)Anatomical Location / LateralityCollection Method / VolumeCollection TimeReceived TimeBloodBLOOD SPECIMEN / UnknownVenipuncture / Oyyflmo0911/09/2024 9:56 AM EDT11/09/2024 10:08 AM EDT Narrative Authorizing ProviderResult TypeResult StatusVivek Khadijah MDLABORATORYFinal ResultPerforming OrganizationAddressCity/State/ZIP CodePhone Number [facility] [address] [facility] [address] * EXTERNAL CARDIOLOGY (10/30/2024 9:22 AM EDT) [...] AM EDT Images were obtained outside of [facility] Procedure Note Provider, [facility] - 10/30/2024 Images were obtained outside of [facility] Authorizing ProviderResult TypeResult StatusCcf ProviderRADIOLOGYFinal Result * [...] any questions regarding this interpretation, please call [phone]. If you are unable to reach us at the number above, please feel free to contact [facility]Radiology at [phone]. Narrative 10/26/2024 11:24 AM EDT * * [...] within the thoracic spine. Procedure Note Provider, [facility] - 10/26/2024 * * *Final Report* * [...] any questions regarding this interpretation, please call [phone]. If you are unable to reach us at the number above, please feel free to contact [facility]iology at [phone]. Authorizing ProviderResult TypeResult StatusHolly Lenny LEE.CNPRAD-PAMAFinal Result from Last 3 Months Insurance * Guarantor: Nate Pena TypeRelation to PatientDate of BirthPhone Billing AddressPersonal/RfqhqhDrbl44/29/1956 [facility] [place] [address] Advance Directives TypeDate RecordedPatient RepresentativeExplanationAdvance Directive(s)11/16/2023 3:40 PMAdvance Directives- Health Carer Power of Medical Intern and Living Will Care Teams Team MemberRelationshipSpecialtyStart DateEnd Date Dick Boss MD [address] [place] [address] PCP - GeneralFamily Medicine10/21/23 Preston Lucio MD [address] [place] [address] Hematology/Oncology11/04/23 Gerald Dumont MD [address] [facility] [address] Hematology/Oncology11/04/23 Kathy Ruiz MD [address] [facility] [address] 11/04/23 Presotn Lucio MD [address] [place] [address] [place] [address] PhysicianHematology/Oncology11/14/23 Michelle Galvez, HVAC TECHNICIAN.OFFICIAL COURT INTERPRETER [address] [place] [address] [place] [address] Nurse PractitionerHematology/Oncology11/14/23 Noemy Chicas, EWELINA [address] [place] [address] [place] [address] Specialty Care CoordinatorHematology/Oncology11/14/23 Steffany Damian LSW Social Worker11/16/23 Valorie Fernandez, HVAC TECHNICIAN.OFFICIAL COURT INTERPRETER [address] [place] [address] [place] [address] Hospice & Palliative Muzdudwt80/22/24 Anna Rasmussen RN Specialty Care CoordinatorHospice & Palliative Lzaznncj89/22/24
--- OUTSIDE RECORDS SUMMARY | 2025-01-04 13:47 | XMS_ITS | Clinical Summary ---
Author Organization [facility] Address [address], [address] [place] [address] Care Team Providers Care Ski Production Supervisor Name Role Phone Mikhail Vega MD Primary Care Provider Unav ailable Social History Tobacco UseTypesPacks/DayYears UsedDateSmoking Tobacco: Never AssessedSex and Gender InformationValueDate RecordedSex Assigned at BirthNot on fileLegal Sex Male04/16/2012 11:30 AM ESTGender IdentityNot on fileSexual OrientationNot on file Plan of Treatment Not on file Care Teams Team MemberRelationshipSpecialtyStart DateEnd Date Mikhail Vega MD PCP - Iruwqxw24/26/12
--- NOTE | 2025-01-04 13:49 | MR_ITS ---
The [address] [address] Patient Name: ERIN CALVERT MRN: [id number] date: 1955 Sex: M Assigned Patient Location: MRI Current Patient Location: Accession/Order Number: [id number] Exam Date: 01/04/2025 14:00 Report Date: 01/05/2025 11:11 At the request of: CITLALLI LAMB NP Procedure: MR thoracic spine wo con MRI OF THORACIC SPINE PERFORMED WITHOUT CONTRAST INDICATION: Thoracic stenosis COMPARISON: None FINDINGS: Thoracic vertebral heights and alignment unremarkable. Diffuse yellow marrow conversion/AVR changes noted likely age-appropriate. Findings appear most pronounced involving the T5-T7 vertebral bodies which may sometimes be seen in setting of prior radiation therapy changes, correlate with history. Otherwise mild multilevel intervertebral space narrowing and multilevel facet arthropathy. The thoracic cord demonstrate normal signal morphology. There are Schmorl's node deformities T9-L1. T1-T5: No significant disease central canal or neural foramina narrowing. T5-T12: Minimal broad-based bulge. No significant canal or neural foramen identified. MR/MR thoracic spine wo con IMPRESSION: Overall minimal age-related degenerative changes. No significant central canal or neural foraminal narrowing identified. Impression dictated by: Jas Flor M.D. 01/05/2025 11:11 AM Dictation Location: [place] [address] Electronically authenticated by: [id number] Y Date: 01/05/2025 11:11
--- OUTSIDE RECORDS SUMMARY | 2025-01-04 13:54 | XMS_ITS | CCD ---
Author Organization [facility] Inform ion Partnership [facility] Care Team Providers Care Steam Trap Man Name Role Phone Molly Ray Attending Unavailable Basia Vega Primary Care UnavailVika Collins Admitting Unavailable Vika Mcfarlane Attending Unavailable Shalom Driver Referring Unavailable Basia Vega Primary Care Unavailable MAXWELL WYNN Attending Unavailable MAXWELL WYNN Consulting Unavailable BASIA VEGA Primary Care Unavailable MAXWELL WYNN Admitting Unavailable GARYBASIA SCANLON Admitting Unavailable BASIA VEGA Attending Unavailable BASIA VEGA Consulting Unavailable BASIA VEGA Primary Care Unavailable Basia Vega Primary Care Provider Rod Gonzalez Attending Provider Nakia Montez DO Unavailable Dick Miranda MD Primary Care Provider KASSIDY VILLASENOR Referring Unavailable DICK MIRANDA Primary Care Unavailable OEDTTE BAPTISTE Admitting Unavailable ODETTE BAPTISTE Attending Unavailable ODETTE BAPTISTE Attending Unavailable ODETTE BAPTISTE Referring Unavailable DICK MIRANDA Primary Care Unavailable Basia Vega Primary Care Provider [phone] Dick Miranda Primary Care Provider HUGH CRAIG Attending Unavailable HUGH CRAIG Admitting Unavailable DICK MIRANDA Primary Care Unavailable Lo Hancock MD Unavailable Gerald Abdi MD Unavailable Olegario Moreira MD Unavailable Lo Hancock MD Unavailable Lenny GARCIAN.PADDING MACHINE OPERATOR, Michelle Unavailable Aviva THEODORE, Noemy Unavailable Rickie RIOS, Steffany Unavailable Unavailable Trinidad LAGUNAS, Gerald Unavailable Joseph LAGUNAS, Olegario Unavailable Renee THEODORE, Crystal Unavailable Joseph LAGUNAS, Olegario Unavailable Dick Miranda MD Primary Care Provider [facility] CANDLES POURER.PADDING MACHINE OPERATOR, Joey Romero Unavailable Grady THEODORE, Anna Aguiar Unavailable Unavail able Nakia Montez DO Unavailable Karyn LAGUNAS, Dick Primary Care Provider Nakia Montez DO Primary Care Provider Karyn LAGUNAS, Dick Primary Care Provider Joseph LAGUNAS, Olegario Unavailable Nakia Montez DO G Unavailable Trinidad LAGUNAS, Angulo Unavailable Dick Miranda MD Unavailable OLEGARIO MOREIRA Attending Unavailable NAKIA MONTEZ G Referring Unavailable NADERER, DICK Primary Care Unavailable ESTEFANY LANG Attending Unavailable KASSIDY VILLASENOR Referring Unavailable KARYN, DICK Primary Care Unavailable OLEGARIO MOREIRA Attending [...] Referring Unavailable NADERER, DICK Primary Care Unavailable Gary LAGUNAS, Basia Primary Care Provider Romario DESK SERGEANT-C, Melinda Lopez Attending Provider Dick Miranda MD Primary Care Provider [phone] Don LAGUNAS, Wendy Erickson Emergency Provider Clarence Stevens DO Admit Provider Clarence Stevens DO Attending Provider [phone] Clarence Stevens DO Other Provider Enoc Barron MD Attending Provider [phone] Enoc aBrron MD Other Provider Clarence Stevens Attending Unavailable [...] Dietz Attending Unavailable NADERER, DICK Attending Unavailable KING, ROBERT Curtis Attending Unavailable ABHYANKAR, LO Referring Unavailable NADERER, DICK A Primary Care Unavailable ABHYANKAR, LO Referring Unavailable NADERER, DICK A Primary Care Unavailable RHEA GODDARD Attending Unavailabl e ABHYANKAR, LO Referring Unavailable NADERER, DICK A Primary Care Unavailable BUNDRIDGEJOEY Attending Unavailabl e NADERER, DICK A Primary Care Unavailable NADERER, DICK A Primary Care Unavailable BUNDRIDCONCEPCION, JOEY Romero Attending Unavailabl e BUNDJOEY DWYER Referring Unavailabl [...] Unavailable NADERER, DICK A Primary Care Unavailable Stewart LAGUNAS, Sariah De La Rosa Attending Unavailable Unavailable Unavailable Unavailable Allergies Allergy ClassificationReported Allergen(s)Allergy TypeDate of OnsetReaction(s) Facility (1 source)Sulfonamides (Antibiotic)Drug allergy (disorder)44-40-2165[facility] ([facility] sources)Sulfonamides (Antibiotic)Drug Vyqjxxz31-55-1782VpycmnrTrinity Health (8 sources)Sulfonamides (Antibiotic); Translations: [SULFA (SULFONAMIDE ANTIBIOTICS)]Propensity to adverse reactions to drug (disorder)10-15-2011 unknown; childhood allergyPro[facility] Repository (20 sources)tiotropiumDrug Cxwfdzg82-19-9736PovneohoxDelaware Hospital for the Chronically Ill Work Phone: (20 sources)gabapentin; Translations: [GABAPENTIN]Drug Vhfhvcl02-00-2867ZwzboThe [facility] (2 sources)tiotropiumDrug Kmgbtld11-37-4551UccyqwkMadison Health Medications Current Medications MedicationDrug Class(es)DatesSig (Normalized)Sig (Original)acetaminophen 325 mg / HYDROcodone bitartrate 7.5 mg oral tablet (20 sources)Opioid AgonistStart: 06-36-8691jbta 1 tablet by mouth every six hours as neededHydrocodone-Acetaminophen 7.5-325 mg tablet Active 1 TAB PO Twice daily as needed for pain October 27, 2024 12:00am FreeTextSig: (Schedule II Drug) TAKE 1 TABLET BY MOUTH EVERY 6 HOURS NEEDED Oral; Note: Source Status: Taking; Refills: 0; Qty: 30 Unspecified; Provider: GARY FLOR Complies with drug therapyStart: 09-19-2024 End: 57-41-9728cwin 1 tablet by mouth four times daily as needed for pain HYDROcodone-acetaminophen ([place]) 7.5-325 MG tablet Indications: DDD (degenerative disc disease), cervical Take 1 tablet by mouth 4 (four) times a day as needed for severe pain for up to 23 days 90 tablet 09/19/2024 10/17/2024 ActiveStart: 08-08-2024 End: 69-85-3096txlc 1 tablet by mouth four times daily as needed for pain HYDROcodone-acetaminophen ([place]) 7.5-325 MG tablet Indications: DDD (degenerative disc disease), cervical Take 1 tablet by mouth 4 (four) times a day as needed for severe pain for up to 23 days 90 tablet 08/08/2024 08/31/2024 ActiveStart: 06-26-2024 End: 99-84-4390bygg 1 tablet by mouth four times daily as needed for pain HYDROcodone-acetaminophen ([place]) 7.5-325 MG tablet Indications: DDD (degenerative disc disease), cervical Take 1 tablet by mouth 4 (four) times a day as needed for severe pain for up to 23 days 90 tablet 06/26/2024 07/19/2024 ActiveStart: 05-14-2024 End: 31-78-2443osgx 1 tablet by mouth four times daily as needed for pain HYDROcodone-acetaminophen ([place]) 7.5-325 MG tablet Indications: DDD (degenerative disc disease), cervical Take 1 tablet by mouth 4 (four) times a day as needed for severe pain for up to 23 days 90 tablet 05/14/2024 06/06/2024 ActiveStart: 04-02-2024 End: 67-31-1493inrv 1 tablet by mouth four times daily as needed for pain HYDROcodone-acetaminophen ([place]) 7.5-325 MG tablet Indications: DDD (degenerative disc disease), cervical Take 1 tablet by mouth 4 (four) times a day as needed for severe pain for up to 23 days 90 tablet 04/02/2024 04/25/2024 ActiveStart: 02-20-2024 End: 37-51-7867ndrt 1 tablet by mouth four times daily as needed for pain HYDROcodone-acetaminophen ([place]) 7.5-325 MG tablet Indications: DDD (degenerative disc disease), cervical Take 1 tablet by mouth 4 (four) times a day as needed for severe pain for up to 23 days 90 tablet 02/20/2024 03/14/2024 ActiveStart: 12-19-2023 End: 03-94-6444xhal 1 tablet by mouth four times daily as needed for pain HYDROcodone-acetaminophen ([place]) 7.5-325 MG tablet Indications: DDD (degenerative disc disease), cervical Take 1 tablet by mouth 4 (four) times a day as needed for severe pain for up to 23 days 90 tablet 01/17/2024 02/09/2024 ActiveStart: 11-18-2023 End: 57-70-0237sgbm 1 tablet by mouth four times daily as needed for pain HYDROcodone-acetaminophen ([place]) 7.5-325 MG tablet Indications: DDD (degenerative disc disease), cervical Take 1 tablet by mouth 4 (four) times a day as needed for severe pain for up to 23 days 90 tablet 11/18/2023 12/11/2023 ActiveStart: 10-28-2023 End: 71-71-4626eabp 1 tablet by mouth four times daily as needed for pain HYDROcodone-acetaminophen ([place]) 7.5-325 MG tablet Indications: DDD (degenerative disc disease), cervical Take 1 tablet by mouth 4 (four) times a day as needed for severe pain for up to 7 days 28 tablet 10/28/2023 11/04/2023 ActiveStart: 11-02-2019 End: 74-41-6828jnna 1 tablet by mouth every six hours [...] hours as needed for pain. Active End: 87-57-1326dugl 1 tablet by mouth every six hours [...] 6 (six) hours asneeded for pain. Active [id number] 200 actuat albuterol 0.09 mg/actuat metered dose inhaler (20 sources)beta2-Adrenergic AgonistStart: 11-21-2024 End: 50-21-8326apfx 1 puff(s) by inhalation every six hours as needed for wheezingAlbuterol Sulfate 90 mcg/actuation HFA aerosol inhaler Active 2 PUFF INHALATION Every 6 hours as needed for shortness of breath or wheezing 8.5 December 03, 2024 2:10pm Complies with drug therapyStart: 02-34-2862bvad 2 puff(s) by inhalation every six hours as neededalbuterol HFA (PROVENTIL HFA, VENTOLIN HFA) 90 mcg/actuation inhaler Inhale 2 Puffs as instructed every 6 hours as needed. 10/20/2023 ActiveStart: 20-19-9208dilr 2 puff(s) by inhalation every six hoursalbuterol HFA 90 mcg/act inhaler Inhale 2 puffs every 6 (six) hours if needed 10/20/2023 ActiveStart: 26-57-3416xiht 2 puff(s) by inhalation every six hours as needed for wheezingalbuterol (PROVENTIL HFA;VENTOLIN HFA) 90 mcg/actuation inhaler Indications: Chronic obstructive pulmonary disease, unspecified COPD type ([facility]) Inhale 2 puffs every 6 (six) hours as needed for wheezing. 18 g 11 10/20/2023 ActiveamLODIPine 10 mg oral tablet (20 sources)Dihydropyridine Calcium Channel BlockerStart: 96-96-6845fcqc 1 tablet by mouth once dailyAmlodipine 10 mg tablet Active 10 MG PO Daily October 27, 2024 12:00am Complies with drug therapyascorbic acid 500 mg oral tablet (20 sources)Vitamin CStart: 37-59-0234qego 1 tablet by mouth once dailyAscorbic Acid (Vitamin C) (Vitamin C) 500 mg Tablet Active 500 MG PO Daily November 02, 2019 12:00am Complies with drug therapytake 1 tablet by mouth in the morning ascorbic acid (Vitamin C) 500 MG tablet Take 500 mg by mouth in the morning. Activeaspirin 81 mg oral tablet (20 sources)Platelet Aggregation Inhibitor, Nonsteroidal Anti-inflammatory Drug Start: 03-03-6667xcmb 1 tablet by mouth once dailyAspirin 81 mg tablet Active 81 MG PO Daily October 27, 2024 12:00am Complies with drug therapyStart: 23-12-9915yhmk 1 tablet by mouth in the morningaspirin 81 mg Indications: Essential hypertension , Bilateral carotid artery stenosis , Occlusive disease, arterial TAKE 1 TABLET (81 MG TOTAL) BY MOUTH IN THE MORNING 90 tablet 1 04/16/2024 ActiveStart: 92-34-6154gvar 1 tablet by mouth in the morningaspirin 81 mg Indications: Essential hypertension , Bilateral carotid artery stenosis , Occlusive disease, arterial TAKE 1 TABLET (81 MG TOTAL) BY MOUTH IN THE MORNING 90 tablet 1 10/25/2023 ActiveStart: 09-30-2023 End: 30-96-3820bdrj 1 tablet by mouth in the morningaspirin 81 mg Indications: Essential hypertension , Bilateral carotid artery stenosis , Occlusive disease, arterial TAKE 1 TABLET (81 MG TOTAL) BY MOUTH IN THE MORNING 90 tablet 1 10/25/2023 Activeatorvastatin 40 mg oral tablet (20 sources)HMG-CoA Reductase InhibitorStart: 96-04-0680xoht 1 tablet by mouth once dailyAtorvastatin 40 mg tablet Active 40 MG PO Daily November 02, 2019 12:00am Complies with drug therapybetamethasone 0.5 mg/ml topical cream (2 sources)CorticosteroidStart: 09-20-2022 End: 82-33-6199iecjpwroprusg dipropionate 0.05 % cream Indications: Prurigo nodularis Apply to affected area on hand twice a day prn itching 45 g 11 09/20/2022 04/20/2023 Discontinuedcetirizine hydrochloride 10 mg oral tablet (20 sources)Histamine-1 Receptor Antagonisttake 1 tablet by mouth in the morning cetirizine (ZyrTEC) 10 mg tablet Take 1 tablet (10 mg total) by mouth in the morning. Active End: 43-14-7013kdah 1 capsule by mouth once dailyCetirizine 10 mg cap Take 10 mg by mouth once daily. 07/20/2024 Discontinued (Discontinued by Patient) cholecalciferol 0.025 mg oral tablet (20 sources)Vitamin DStart: 45-37-7248cxcltkudbevvhcm (VITAMIN D3) 1,000 unit tab tablet Take 1,000 Units by mouth. 10/06/2023 ActiveStart: 16-36-6716mtna 1 tablet by mouth in the morningcholecalciferol (Vitamin D-3) 25 MCG (1000 UT) tablet Take 500 Units by mouth in the morning. 10/06/2023 ActiveStart: 10-06-2023 End: 56-66-8217nhej 1 tablet by mouth once dailycholecalciferol (VITAMIN D3) 1,000 unit tab tablet Take 1,000 Units by mouth once daily. Discontinued (Discontinued by another Health Care Provider)Start: 03-21-2020 End: 31-70-3256yyxv 1 tablet by mouth once dailyCholecalciferol (Vitamin D3) (Vitamin D3) 25 mcg (1,000 unit) Tablet,Chewable Discontinued 1000 UNIT PO Daily March 21, 2020 1:00am October 27, 2024 6:15pmcilostazol 100 mg oral tablet (1 source)Phosphodiesterase 3 InhibitorStart: 45-13-6312jeqc 1 tablet by mouth in the morning, then take 1 tablet by mouth at bedtimecilostazoL (PLETAL) 100 mg tablet Indications: Right internal carotid occlusion , Occlusive disease, arterial Take 1 tablet (100 mg total) by mouth in the morning and 1 tablet (100 mg total) before bedtime. 90 tablet 5 06/27/2023 Activeclopidogrel 75 mg oral tablet (20 sources)P2Y12 Platelet InhibitorStart: 10-27-2024 End: 89-62-5807pvak 1 tablet by mouth once dailyStart: 93-65-5847baxk 1 tablet by mouth once daily in the morningclopidogreL (PLAVIX) 75 mg tablet Indications: Essential hypertension , Bilateral carotid artery stenosis , Occlusive disease, arterial TAKE 1 TABLET BY MOUTH EVERY DAY IN THE MORNING 90 tablet 1 10/10/2024 ActiveStart: 03-06-2024 End: 13-40-9145gfoz 1 tablet by mouth once daily in [...] 90 tablet 1 10/25/2023 ActiveStart: 09-30-2023 End: 45-10-2434lweb 1 tablet by mouth once daily in [...] diazePAM 5 mg oral tablet (20 sources)BenzodiazepineStart: 43-48-4043nmel 1 tablet by mouth three times daily as neededDiazepam 5 mg tablet Active 5 MG PO Three times daily as needed November 21, 2024 12:00am Complies with drug therapyStart: 10-12-2023 End: 41-61-1315zlvn 1 tablet by mouth three times daily as needed for anxiety diazePAM (Valium) 5 MG tablet Indications: KIKO (generalized anxiety disorder) Take 1 tablet (5 mg) by mouth 3 (three) times a day as needed for anxiety 90 tablet 06/05/2024 ActiveStart: 11-02-2019 End: 42-07-5156hycm 1 tablet by mouth every six hours as needed for muscle spasmsDiazepam 5 mg Tablet Discontinued 5 MG PO Q6H as needed for Spasms November 02, 2019 12:00am November 08, 2019 8:03amdocusate sodium 100 mg oral capsule (5 sources)Start: 84-80-0904pldc 1 capsule by mouth twice daily as needed for constipationDocusate Sodium 100 mg Capsule Active 100 MG PO Twice daily as needed for Constipation 30 10 2024 12:00am Complies with drug therapytake 1 tablet by mouth twice dailyDocusate Sodium 100 mg tab Take 100 mg by mouth two times a day. Activedoxepin hydrochloride 75 mg oral capsule (8 sources)Tricyclic AntidepressantStart: 09-18-6731fdxl 1 capsule by mouth once daily at bedtimeDoxepin 75 mg capsule Active 75 MG PO Daily at bedtime November 21, 2024 12:00am Complies with drug therapyStart: 78-19-6796oklq 1 capsule by mouth at bedtimedoxepin (SINEquan) 75 MG capsule Indications: Primary insomnia Take 1 capsule (75 mg) by mouth at bedtime 30 capsule 3 10/17/2024 Activefexofenadine hydrochloride 180 mg oral tablet (20 sources)Histamine-1 Receptor AntagonistStart: 34-02-1713ikbz 1 tablet by mouth once dailyFexofenadine 180 mg tablet Active 180 MG PO Daily November 21, 2024 12:00am Complies with drug therapyfexofenadine HCl (ITZEL ORAL) Take 180 mg by mouth. Activegabapentin 100 mg oral capsule (20 sources)Anti-epileptic AgentStart: 12-23-2023 End: 32-99-6150emkq 2 capsules by mouth once daily at bedtimegabapentin (NEURONTIN) 100 mg capsule Take 2 capsules by mouth daily at bedtime for 60 days. 30 capsule 1 12/23/2023 12/28/2023 DiscontinuedStart: 11-29-2023 End: 61-43-5892ywis 1 capsule by mouth once daily at bedtime, then take 1 capsule by mouth once dailygabapentin (NEURONTIN) 100 mg capsule Take 1 capsule (100 mg total) by mouth once daily at bedtime.Pt is only taking one tablet a day. 12/26/2023 ActiveStart: 03-21-2020 End: 71-69-9946sjce 1 capsule by mouth three times dailyGabapentin 300 mg capsule Discontinued 300 MG PO Three times daily March 21, 2020 1:00am 2024 6:16pmStart: 78-81-4967ozzxbitipw (NEURONTIN) 100 mg capsule Indications: Tension headache [...] hydrochlorithiazide 50mg takes daily . Active End: 50-99-0777oacc 1 tablet by mouth in the morninglosartan-hydroCHLOROthiazide (Hyzaar) 100-25 MG tablet Take 1 tablet by mouth in the morning. 0 04/20/2023 Discontinuedibuprofen 600 mg oral tablet (3 sources)Nonsteroidal Anti-inflammatory DrugStart: 19-11-8171Qiadksrrj 600 mg tablet Active 600 MG PO every 6 to 8 hours as needed for pain October 292:00am Complies with drug therapyketoconazole 10 mg/ml medicated shampoo (20 sources)Azole AntifungalStart: 93-12-6780Pccjprmjnxed 1 % shampoo Active 1 APPLIC TOPICAL Twice a Week November 21, 2024 12:00am Complieswith drug therapyStart: 21-27-9188Fqcqmcgtxtwn (Nizoral) 1 % shampoo Indications: Seborrheic dermatitis Apply 1 Application topically2 (two) times a week 200 mL 3 04/19/2024 ActiveKetoconazole (Nizoral) 1 % shampoo (8 sources)Start: 12-03-7251Zmdqkuipmnxp (Nizoral) 1 % shampoo Indications: Seborrheic dermatitis Apply 1 Application topically2 (two) times a week 200 mL 3 04/19/2024 Activekrill oil 500 mg oral capsule (20 sources)Start: 24-13-2227aoey 1 capsule by mouth once dailyKrill Oil 500 mg capsule Active 500 MG PO Daily November 21, 2024 12:00am Complies with drug therapytake 1 capsule by mouth once dailykrill oil 500 mg cap Take 1 capsule by mouth once daily. Activeloratadine 10 mg oral tablet (3 sources) End: 42-17-6897lmvp 1 tablet by mouth once dailyloratadine (CLARITIN) 10 mg tablet Take 10 mg by mouth daily. Activemeloxicam 7.5 mg oral tablet (20 sources)Nonsteroidal Anti-inflammatory DrugStart: 10-10-2024 End: 85-38-6824cmpp 1 tablet by mouth once daily at bedtimeMeloxicam 7.5 mg tablet Active 7.5 MG PO Daily at bedtime October 27, 2024 12:00am Complies with drug therapyStart: 10-12-2023 End: 26-02-0927fcjd 1 tablet by mouth once dailymeloxicam (MOBIC) 7.5 mg tablet Take 1 tablet by mouth once daily. 10/12/2023 12/23/2023 DiscontinuedMELOXICAM ORAL Take by mouth. ActivemetFORMIN hydrochloride 850 mg oral tablet (20 sources)BiguanideStart: 54-64-7454vnky 1 tablet by mouth once dailyMetformin 850 mg tablet Active 850 MG PO Daily October 27, 2024 12:00am Complies with drug therapyStart: 12-20-2022 End: 58-31-9515badk 1 tablet by mouth once daily at breakfastmetFORMIN (GLUCOPHAGE) 850 mg tablet Take 850 mg by mouth daily with breakfast. 10/02/2023 Joktxi31/70 release 24 hr methylphenidate hydrochloride 10 mg extended release oral capsule (20 sources)Central Nervous System StimulantStart: 33-36-7948Btjvumipcgxdsni Hcl 10 mg capsule, ER biphasic 30-70 Active 10 MG PO Every morning November 21, 2024 12:00am Complies with drug therapyStart: 12-28-2023 End: 50-43-3885uytz 1 tablet by mouth twice dailymethylphenidate (RITALIN) 10 mg tablet Indications: Malaise and fatigue , Attention deficit hyperactivity disorder (ADHD), combined type Take 1 tablet by mouth two times a day for 30 days. 60 tablet 07/09/2024 ActiveStart: 10-21-2014 End: 48-62-6558jhwlfcbgrookqjg (RITALIN) 10 mg tablet Take 1 tablet as needed by oral route. 10/21/2014 10/26/2023iscontinuedStart: 05-17-2014 End: 68-89-7062cbkc 1 tablet by mouth in the morningmethylphenidate (RITALIN) 5 mg tablet Take 1 tablet(s) in AM and at 1 PM by oral route. 05/17/2014 0 10/26/2023 Discontinuedtake 1 capsule by mouth once daily in the morning methylphenidate CD (Metadate CD) 10 MG daily capsule Take 10 mg by mouth in the morning. Do not crush or chew.. ActivemethylPREDNISolone (16 sources)CorticosteroidStart: 11-06-2024 End: 58-74-7693yeahvxKLHTXWQmvrfi (MEDROL, ZACH,) 4 mg Dose-Pack Take as instructed per package. 21 tablet 11/06/2024 11/12/2024 ActiveStart: 04-23-2024 End: 90-64-3613ixcgcxXKJFDZUesnpw acetate (DEPO-Medrol) injection 40 mgStart: 04-23-2024 End: 55-85-190653 mg, Intra-articular, Once PRN Procedure, Starting on Tue04/23/24 at 1510, For 1 doseStart: 03-08-2024 End: 00-08-3347xnnyhrBLYMEACtyorg acetate (DEPO-Medrol) injection 40 mgStart: 03-08-2024 End: 24-45-936449 mg, Intra-articular, Once PRN Procedure, Starting on Irma 03/08/24 at 1235, For 1 dosemetroNIDAZOLE 7.5 mg/ml topical lotion (2 sources)Nitroimidazole AntimicrobialStart: 02-24-2023 End: 24-20-2478lehmmZALIONPF (Metrolotion) 0.75 % lotion lotion Indications: Other rosacea Apply thin layer to face, once daily, 30 day supply 59 mL 11 02/24/2023 04/20/2023 Discontinuedminocycline 50 mg oral capsule (2 sources)Tetracycline-class DrugStart: 12-20-2022 End: 96-18-2664tdya 1 capsule by mouth twice dailyminocycline 50 [...] tablet by mouth in the morning. 0 TfkeynYofjksip-Uvu-Uu-Lycopen-Lutein (Men 50 Plus Multivitamin) 300-600-300 mcg Tablet (1 source)Start: 85-04-8127seld 50-300 tablets by mouth once daily Qrxotlfh-Xka-Bf-Lycopen-Lutein (Men 50 Plus Multivitamin) 300-600-300 mcg Tablet [...] 1 tablet by mouth once daily. 0 CxmtdnIg-Hyd-Tzrez-U3-Zfygvvj-Igmfeo (Men 50 Plus Multivitamin) 300-600-300 mcg Tablet (4 sources)Start: 98-06-6155famf 50-300 tablets by mouth once dailyStart: 01-78-1138nszd 50-300 tablets by mouth once xdxjjMx-Gyw-Fxiec-X2-Tujdukj-Rwumnc (Men 50 Plus Multivitamin) 300-600-300 mcg Tablet Active 1 TAB PO Daily November 02, 2019 12:00am Complies with drug kyishzy81 hr nicotine 0.875 mg/hr transdermal system (20 sources)Cholinergic Nicotinic AgonistStart: 10-03-2023 End: 32-17-1983romdavvi (Nicoderm, Step 1) 21 MG/24HR patch Indications: Cigarette smoker Place 1 patch over 24 hours on the skin 1 (one) time each day at the same time 30 patch 1 10/03/2023 10/17/2024 DiscontinuedStart: 10-03-2023 End: 54-64-2552lwxvj 1 dose transdermal route every hournicotine (NICODERM) 21 mg/24 hr Apply 1 Patch as directed. 10/03/2023 03/23/2024 Discontinued (Disco ntinued by another Health Care Provider)Nicotine Polacrilex (NICORETTE) [address] 4 mg between cheek and gum as needed. ActiveOmega 1-Hmh-Oue-Fish Oil (Fish Oil) 1,000 mg (120 mg-180 mg) Capsule (5 sources)Start: 09-45-8339otqt 1 capsule by mouth once dailyOmega 6-Lgh-Khe-Fish Oil (Fish Oil) 1,000 mg (120 mg-180 mg) Capsule Active 1 CAP PO Daily November 02, 2019 1:54pm Stopped 11/01/28Start: 11-02-2019 End: 53-56-4781zwvf 1 capsule by mouth once dailyOmega 2-Vde-Jdl-Fish Oil (Fish Oil) 1,000 mg (120 mg-180 mg) Capsule Discontinued 1 CAP PO Daily November 02, 2019 12:00am March 21, 2020 11:09am Stopped 11/01/28omeprazole 20 mg delayed release oral tablet (20 sources)Proton Pump InhibitorStart: 80-02-5288enwk 1 tablet by mouth once dailyOmeprazole 20 [...] tablet (20 sources)Serotonin-3 Receptor AntagonistStart: 11-14-2023 End: 82-90-9365ndco 1 tablet by mouth every eight hours as neededondansetron (Zofran) 8 MG tablet Take 8 mg by mouth every 8 (eight) hours if needed 11/14/2023 10/17/2024 DiscontinuedpredniSONE 10 mg oral tablet (20 sources)Start: 11-09-2024 End: 51-88-4830ysrk 2 tablets by mouth once dailypredniSONE (DELTASONE) 10 mg tablet Indications: Radiation-induced pulmonary fibrosis (HCC) , Malignant neoplasm of unspecified part of unspecified bronchus or lung (HCC) , Neuralgia Take 2 tablets by mouth once daily. 60 tablet 11/09/2024 12:40 PM EDT 11/09/2024 12/09/2024 ActiveStart: 01-95-9562ykph 2 tablets by mouth once dailyPrednisone 20 mg Tablet Active 40 MG PO Daily 8 October 29, 2024 12:00am Complies with drug therapyStart: 39-56-4862afeq 4 tablets by mouth once, then take 1 tablet by mouthPrednisone Active 1 dose pk PO per package directions November 08, 2019 7:04am take 4 tabs for3 days then take 3 tabs for 3 days then take 2 tabs for 3 days then take 1 tab for 3 daysStart: 11-08-2019 End: 84-88-5591Skypfoqqxu 10 mg tablets,dose pack Discontinued 1 dose pk PO per package directions March 21, 2020 1:00am October 27, 2024 6:17pm take 4 tabs for 3 days then take 3 tabs for 3 days then take 2 tabs for 3 days then take 1 tab for 3 daysStart: 11-02-2019 End: 00-94-7858Gegeqttcgu 10 mg tablet Discontinued 10 MG PO As Directed November 02, 2019 12:00am November 08, 2019 8:03amStart: 40-23-9872ysgi 1 tablet by mouth once daily, then take 1 tablet by mouth twice daily, then take 1 tablet by mouth once dailypredniSONE (DELTASONE) 20 mg tablet TAKE 1 TAB BY MOUTH 3X DAILY FOR 3 DAYS, 1 TAB TWICE DAILY FOR 3 DAYS, 1 TAB DAILY FOR 3 DAYS 10/13/2019 Activepregabalin 75 mg oral capsule (20 sources)Start: 11-21-2024 End: 46-59-8443gyee 1 capsule by mouth twice dailyPregabalin (Lyrica) 75 mg capsule Active 75 MG PO Twice daily 60 November 21, 2024 2:18pm Complies with drug therapyStart: 01-17-2024 End: 28-00-4035expu 1 capsule by mouth in the morningpregabalin (Lyrica) 75 MG capsule Indications: Chemotherapy-induced neuropathy (HCC) Take 1 capsule(75 mg) by mouth in the morning and 1 capsule (75 mg) before bedtime. 60 capsule 2 07/11/2024 10/17/2024 DiscontinuedStart: 01-17-2024 End: 01-00-5441pmap 1 capsule by mouth in the morningpregabalin (Lyrica) 75 MG capsule Indications: Chemotherapy-induced neuropathy (CMS/HCC) Take 1 capsule (75 mg) by mouth in the morning and 1 capsule (75 mg) before bedtime. 60 capsule 2 01/17/2024 Activeprochlorperazine 10 mg oral tablet (20 sources)PhenothiazineStart: 11-14-2023 End: 20-76-6838idht 1 tablet by mouth every six hours as neededprochlorperazine (Compazine) 10 MG tablet Take 10 mg by mouth every 6 (six) hours if needed 11/14/2023 10/17/2024 Discontinuedpropranolol hydrochloride 20 mg oral tablet (20 sources)beta-Adrenergic BlockerStart: 25-22-2503qult 1 tablet by mouth once daily as neededPropranolol 20 mg tablet Active 20 MG PO Daily as needed November 21, 2024 12:00am Complies withdrug therapyStart: 01-73-9164mynk 1 tablet by mouth once daily as needed for anxietypropranolol (INDERAL) 20 mg tablet TAKE 1 TABLET BY MOUTH NEEDED FOR ANXIETY ATTACKS ONCE A DAY 1 Activetake 1 tablet by mouth three times dailypropranoloL (INDERAL) 20 mg tablet Take 1 tablet (20 mg total) by mouth 3 (three) times a day. Active sildenafil 100 mg oral tablet (20 sources)Phosphodiesterase 5 InhibitorStart: 18-89-3424Ygvilndqax 100 mg tablet Active 100 MG PO Daily as needed November 21, 2024 12:00am administer 30 minutes to 4 hours before activity Complies with drug therapyStart: 12-15-2022 End: 47-41-0152ktxv 1 tablet by mouth once daily as neededsildenafil (Viagra) 100 MG tablet Indications: Erectile dysfunction, unspecified erectile dysfunctio n type Take 1 tablet (100 mg) by mouth Daily as needed for erectile dysfunction. 10 tablet 10 12/15/2022 Activeterazosin 1 mg oral capsule (20 sources)alpha-Adrenergic BlockerStart: 66-44-4118xnkl 1 capsule by mouth once daily at bedtimeTerazosin 1 mg capsule Active 1 MG PO Daily at bedtime October 27, 2024 12:00am Complies with dfhjbvlkueg85 actuat tiotropium 0.0025 mg/actuat inhalation spray (13 sources)AnticholinergicStart: 50-83-8986nsrl 2 puff(s) by inhalation in the morningtiotropium bromide (SPIRIVA RESPIMAT) 2.5 mcg/actuation mist Indications: Chronic obstructive pulmonary disease, unspecified COPD type ([facility]-H[facility]) Inhale 2 puffs in the morning. 4 g 12 10/20/2023 ActivetiZANidine 4 mg oral tablet (3 sources)Central alpha-2 Adrenergic Agonisttake 6 mg by mouth every six hours as neededtiZANidine (ZANAFLEX) 4 mg tablet Take 1.5 tablets (6 mg total) by mouth every 6 (six) hours as needed for muscle spasms. Active End: 98-87-7603vddt 6 mg by mouth every six hours as neededtiZANidine (Zanaflex) 4 MG tablet Take 6 mg by mouth every 6 (six) hours if needed. 0 04/20/2023 Dis continuedtraZODone hydrochloride 100 mg oral tablet (20 sources)Serotonin Reuptake InhibitorStart: 12-23-2023 End: 31-49-6195exxz 1 tablet by mouth once daily at bedtimetraZODone (DESYREL) 100 mg tablet Take 1 tablet by mouth daily at bedtime. 02/23/2024 ActiveStart: 10-03-2023 End: 33-76-0833zfsq 1 tablet by mouth at bedtimetraZODone (Desyrel) 50 MG tablet Indications: Primary insomnia Take 1 tablet (50 mg) by mouth at bedtime 30 tablet 5 10/28/2023 Activetriamcinolone acetonide 1 mg/ml topical lotion (2 sources)CorticosteroidStart: 06-14-2022 End: 96-46-4007agkdgzfqrzjyj (Kenalog) 0.1 % lotion APPLY DAILY TO SKIN TO AFFECTED AREA TWICE A DAY FOR 2 WEEKS 04/20/2023 Discontinued valsartan 160 mg oral tablet (1 source)Angiotensin 2 Receptor Blockervalsartan (DIOVAN) 160 mg tablet Diovan CAPS Refills: 0 Active Activevarenicline 1 mg oral tablet (2 sources)Partial Cholinergic Nicotinic AgonistStart: 12-15-2022 End: 93-12-1884pwkm 1 tablet by mouth in the morningVarenicline Tartrate, Starter, (Chantix Starting Month ) 0.5 MG X 11 & 1 MG X 42 tablet therapy pack Indications: Cigarette nicotine dependence without complication Take 1 tablet by mouth in the morning. Take as directed.. 1 each 0 12/15/2022 04/20/2023 Discontinued Completed/Discontinued Medications MedicationDrug Class(es)DatesSig (Normalized)Sig (Original)acetaminophen 500 mg oral tablet (5 sources)Start: 10-29-2024 End: 28-85-4781zwvn 2 tablets by mouth three times dailyAcetaminophen 500 mg Tablet Discontinued 1000 MG PO Three times daily 0 October 29, 2024 12:00am Oc tober 2024 9:21amtake 2 capsules by mouth every six hours as needed Acetaminophen 500 mg cap Take 1,000 mg by mouth every 6 hours as needed for pain. Activeacyclovir 400 mg oral tablet (4 sources)Herpesvirus Nucleoside Analog DNA Polymerase Inhibitor, Herpes Simplex Virus Nucleoside Analog DNA Polymerase Inhibitor, Herpes Zoster Virus Nucleoside Analog DNA Polymerase InhibitorStart: 11-21-2024 End: 95-88-4637nfcv 1 tablet by mouth twice dailyAcyclovir 400 mg tablet Discontinued 400 MG PO Twice daily November 21, 2024 12:00am December 10, 2024 9:22amStart: 80-33-4677bzzi 1 tablet by mouth twice dailyacyclovir (ZOVIRAX) 400 mg tablet Indications: Radiation-induced pulmonary fibrosis (HCC) , Malignant neoplasm of unspecified part of unspecified bronchus or lung (HCC) , Neuralgia Take 1 tablet by mouth two times a day. 60 tablet 2 11/09/2024 12:40 PM EDT 11/09/2024 ActiveCARBOplatin 650 mg in NaCl 0.9% 340 mL (PARAPLATIN) (2 sources)Start: 12-28-2023 End: 49-70-4862385 mg (rounded from 659 mg, Target AUC = 5), INTRAVENOUS, Administer over 30 Minutes, ONCE, 1 dose, On Tue12/28/23 at 1500, EXP: 12/29/2023 1120 RT Hazardous Chemotherapy Drug: Use appropriate PPE. Antineoplastic Irritant.Start: 12-07-2023 End: 31-23-1362664 mg (rounded from 659 mg, Target AUC = 5), INTRAVENOUS, Administer over 30 Minutes, ONCE, 1 dose, On Tue12/07/23 at 1500, EXP: 12/08/2023 1120 RT Hazardous Chemotherapy Drug: Use appropriate PPE. A ntineoplastic Irritant.CARBOplatin 800 mg in NaCl 0.9% 355 mL (PARAPLATIN) (1 source)Start: 11-16-2023 End: 61-07-4064750 mg (rounded from 808.2 mg, Target AUC = 6), INTRAVENOUS, Administer over 30 Minutes, ONCE, 1 dose, On Tue11/16/23 at 1430, EXP: 11/17/2023 1015 RT Hazardous Chemotherapy Drug: Use appropriate PPE. Antineoplastic Irritant.cephalexin 500 mg oral capsule (9 sources)Cephalosporin AntibacterialStart: 11-08-2019 End: 31-85-2138sxzf 1 capsule by mouth every eight hoursCephalexin (Keflex) 500 mg capsule Discontinued 500 MG PO Q8H March 21, 2020 1:00am October 27, 2024 6:15pmcyclobenzaprine hydrochloride 10 mg oral tablet (15 sources)Muscle RelaxantStart: 09-10-2019 End: 72-53-9577erqy 1 tablet by mouth three times daily as needed for muscle spasmsCyclobenzaprine 10 mg tablet Discontinued 10 MG PO Three times daily as needed for back spasms November 08, 2019 12:00am March 21, 2020 11:09am 1 ml dexamethasone phosphate 10 mg/ml injection (1 source)CorticosteroidStart: 12-28-2023 End: 20-24-986135 mg, INTRAVENOUS, ONCE, 1 dose, On Tue12/28/23 at 1100, Administer over 5 minutes.dexAMETHasone 10 mg in NaCl 0.9% 50 mL (DECADRON) (2 sources)Start: 12-07-2023 End: 38-28-451760 mg, INTRAVENOUS, ONCE, 1 dose, On Tue12/07/23 at 1100, Refrigerate.Start: 11-16-2023 End: 98-23-512387 mg, INTRAVENOUS, ONCE, 1 dose, On Tue11/16/23 at 1030, Refrigerate.diphenhydrAMINE (3 sources)Histamine-1 Receptor AntagonistStart: 12-28-2023 End: 55-19-597687 mg, INTRAVENOUS, ONCE, 1 dose, On Tue12/28/23 at 1100Start: 12-07-2023 End: 09-25-972714 mg, INTRAVENOUS, ONCE, 1 dose, On Tue12/07/23 at 1100Start: 11-16-2023 End: 04-03-462712 mg, INTRAVENOUS, ONCE, 1 dose, On Tue11/16/23 at 1030 DOCOSAHEXANOIC ACID/EPA (FISH OIL ORAL) (8 sources) End: 62-15-9131bgee 1400 mg by mouth once dailyDOCOSAHEXANOIC ACID/EPA [...] with radiology test) (16 sources)Start: 12-28-2023 End: 96-57-2368azspitz contrast (will be provided with radiology test) [...] Discontinued (Discontinued by another Health Care Provider)Start: 66-98-7110qcnxshu contrast (will be provided with radiology test) [...] injection (3 sources)Histamine-2 Receptor AntagonistStart: 12-28-2023 End: 42-44-410308 mg, INTRAVENOUS, ONCE, 1 dose, On Tue12/28/23 at 1100, REFRIGERATEStart: 12-07-2023 End: 87-12-153949 mg, INTRAVENOUS, ONCE, 1 dose, On Tue12/07/23 at 1100, REFRIGERATEStart: 11-16-2023 End: 15-64-868171 mg, INTRAVENOUS, ONCE, 1 dose, On Tue11/16/23 at 1030, REFRIGERATEfosaprepitant 150 mg injection (1 source)Start: 12-28-2023 End: 85-93-4359938 mg, INTRAVENOUS, Administer over 30 Minutes, ONCE, 1 dose, On Tue12/28/23 at 1100, Approx Total Volume: 115 mL Refrigeratefosaprepitant 150 mg in NaCl 0.9% 250 mL (EMEND) (2 sources)Start: 12-07-2023 End: 83-26-2368922 mg, INTRAVENOUS, Administer over 30 Minutes, ONCE, 1 dose, On Tue12/07/23 at 1100, Approximate Total Volume = 280 mL RefrigerateStart: 11-16-2023 End: 34-51-3580803 mg, INTRAVENOUS, Administer over 30 Minutes, ONCE, 1 dose, On Tue11/16/23 at 1030, Approximate Total Volume = 280 mL Refrigerate hydroCHLOROthiazide 50 mg oral tablet (20 sources)Thiazide DiureticStart: 08-02-2023 End: 90-75-4919htpx 1 tablet by mouth once dailyhydroCHLOROthiazide 50 mg tablet Take 50 mg by mouth once daily. 08/02/2023 07/20/2024 Discontinued(Discontinued by another Health Care Provider)Start: 06-17-2022 End: 43-03-2854gqiv 1 tablet by mouth once daily in the morning hydroCHLOROthiazide (HYDRODiuril) 50 MG tablet Indications: Essential (primary) hypertension (CMS/HCC) TAKE 1 TABLET BY MOUTH EVERY DAY IN THE MORNING 90 tablet 3 09/13/2022 04/20/2023 DiscontinuedStart: 11-02-2019 End: 07-32-3854oncz 1 tablet by mouth once dailyHydrochlorothiazide 25 mg tablet Discontinued 25 MG PO Daily November 02, 2019 12:00am October 6:16pm hydroCHLOROthiazide 25 mg / valsartan 160 mg oral tablet (10 sources)Thiazide Diuretic, Angiotensin 2 Receptor Valentina End: 61-88-2126jbjm 1 tablet by mouth once dailyValsartan-Hydrochlorothiazide (DIOVAN HCT) 160-25 mg per tablet Take 1 tablet by mouth once daily. 10/26/2023 Discontinued End: 57-41-1005srnz 1 tablet by mouth in the morningvalsartan- hydroCHLOROthiazide (Diovan HCT) 160-25 MG tablet Take 1 tablet by mouth in the morning. 0 04/20/2023 Discontinuedindomethacin 75 mg extended release oral capsule (14 sources)Nonsteroidal Anti-inflammatory DrugStart: 08-27-2014 End: 43-91-0345pzhp 1 capsule by mouth once daily at breakfastindomethacin ER 75 mg CR capsule Take 1 capsule by mouth daily with breakfast. 14 capsule 0 08/27/2014 11/10/2023 Discontinued (Discontinued by Patient)iv contrast (will be provided with radiology test) (20 sources)Start: 08-01-2024 End: 16-59-0104xnzyil 1 dose intravenously onceiv contrast (will be [...] 1 each 08/01/2024 08/02/2024 ExpiredStart: 07-20-2024 End: 38-86-8030zsrkoa 1 dose intravenously onceiv contrast (will be [...] 1 each 07/20/2024 07/21/2024 ExpiredStart: 07-20-2024 End: 98-66-9721rsoepf 1 dose intravenously onceiv contrast (will be [...] 1 each 07/20/2024 07/21/2024 ActiveStart: 12-28-2023 End: 60-71-8609id contrast (will be provided with radiology test) [...] Discontinued (Discontinued by another Health Care Provider)Start: 47-02-0938zj contrast (will be provided with radiology test) [...] mg oral tablet (20 sources)l-ThyroxineStart: 06-12-2018 End: 31-55-3168vmiw 1 tablet by mouth once dailyLevothyroxine (Synthroid) 175 mcg tablet Discontinued 175 MCG PO Daily November 02, 2019 12:00am November 27, 2024 3:39pmlevothyroxine (SYNTHROID, LEVOTHROID) 100 MCG tablet Synthroid 100 MCG Oral Tablet Refills: 0 Active Activelosartan potassium 100 mg oral tablet (20 sources)Angiotensin 2 Receptor BlockerStart: 11-02-2019 End: 33-84-2395xleu 1 tablet by mouth once dailyLosartan 100 mg tablet Discontinued 100 MG PO Daily November 02, 2019 12:00am October 27, 2024 6:17pm take 2 tablets by mouth once dailylosartan (COZAAR) 50 mg tablet Take 100 mg by mouth daily. Activenivolumab 360 mg in NaCl 0.9% 146 mL (OPDIVO) (3 sources)Start: 12-28-2023 End: 42-92-1394003 mg, INTRAVENOUS, Administer over 30 Minutes, ONCE, 1 dose, On Tue12/28/23 at 1130, EXP: 12/28/20231909 RT Administer with 0.2 micron filter. Protect from light if utilizing refrigerator 7 day expiration.Start: 12-07-2023 End: 09-74-3827490 mg, INTRAVENOUS, Administer over 30 Minutes, ONCE, 1 dose, On Tue12/07/23 at 1130, EXP: 12/07/2023 1910 RT Administer with 0.2 micron filter. Protect from light if utilizing refrigerator 7 day expiration.Start: 11-16-2023 End: 48-60-8094496 mg, INTRAVENOUS, Administer over 30 Minutes, ONCE, 1 dose, On Tue11/16/23 at 1100, EXP: 11/16/2023 1815 RT Administer with 0.2 micron filter. Protect from light if utilizing refrigerator 7 day expiration.nivolumab 480 mg in NaCl 0.9% 158 mL (OPDIVO) (3 sources)Start: 07-20-2024 End: 13-53-7410875 mg, INTRAVENOUS, Administer over 30 Minutes, ONCE, 1 dose, On Tue07/20/24 at 1530, Approx TotalVolume: 158 mL EXP: 07/20/2024 2330 RT Administer with 0.2 micron filter. Protect from light if utilizing refrigerator 7 day expiration.Start: 06-15-2024 End: 21-96-1541943 mg, INTRAVENOUS, Administer over 30 Minutes, ONCE, 1 dose, On Tue06/15/24 at 1500, Approx TotalVolume: 158 mL EXP: 2230 06/15/24 Administer with 0.2 micron filter. Protect from light if utilizingrefrigerator 7 day expiration.Start: 05-18-2024 End: 96-62-7838366 mg, INTRAVENOUS, Administer over 30 Minutes, ONCE, 1 dose, On Tue05/18/24 at 1400, Approx TotalVolume: 158 mL EXP: 05/18/2024 2150 RT Administer with 0.2 micron filter. Protect from light if utilizing refrigerator 7 day expiration.oxyCODONE hydrochloride 5 mg oral tablet (14 sources)Opioid AgonistStart: 10-29-2024 End: 87-87-1620tryh 5-10 mg by mouth every six hoursOxycodone 5 mg tablet Discontinued 5 - 10 MG PO Every 6 hours 30 October 29, 2024 November 21, 2024 1:50pmStart: 03-21-2020 End: 69-28-3934crak 5-10 mg by mouth every six hours as needed for painOxycodone 5 mg capsule Discontinued 5 - 10 MG PO Q6H as needed for pain 60 March 21, 2020 March 21, 2020 2:16pmStart: 03-21-2020 End: 96-16-5471cuap 5-10 mg by mouth every six hours as needed for painOxycodone 5 mg capsule Discontinued 5 - 10 MG PO Q6H as needed for pain 60 March 21, 2020 October 27, 2024 6:17pmStart: 03-21-2020 End: 55-12-5703hxjg 5-10 mg by mouth every six hours as needed for painOxycodone 5 mg capsule Discontinued 5 - 10 MG PO Q6H as needed for pain 60 March 21, 2020 October 27, 2024 6:17pmStart: 38-71-6097lhqt 5-10 mg by mouth every six hoursOxycodone Active 5 - 10 MG PO Q6H 60 8 November 08, 2019 7:04am PACLitaxel 330 mg in NaCl 0.9% 595 mL (TAXOL) (2 sources)Start: 12-28-2023 End: 02-57-8476941 mg (rounded from 336 mg = 175 mg/m2 1.92 m2 Treatment Plan BSA from Recorded weight), INTRAVENOUS, at 198.33 mL/hr, Administer over 3 Hours, ONCE, 1 dose, On Tue12/28/23 at 1200, EXP: 1100 01/07/24 REF Hazardous Chemotherapy Drug: Use appropriate PPE. Antineoplastic Irritant with Vesicant Potential. Administer with non-DEHP 0.2 micron filter and tubing.Start: 12-07-2023 End: 67-00-2694709 mg (rounded from 336 mg = 175 [...] 604 mL (TAXOL) (1 source)Start: 11-16-2023 End: 94-98-4698992 mg (200 mg/m2 1.92 m2 Treatment Plan [...] release oral tablet (20 sources)Start: 06-15-2024 End: 35-27-6518icie 1 tablet by mouth once daily, then take 1 tablet by mouth twice daily, then take 1 tablet by mouth once dailypotassium chloride ER (KLOR- CON) 20 mEq tablet Take 1 tablet by mouth once daily. Take 1 tablet by mouth twice daily x3 days then take 1 tablet by mouth daily 60 tablet 1 06/15/2024 08/16/2024 DiscontinuedStart: 02-24-2024 End: 01-19-0891ehsk 1 tablet by mouth twice dailypotassium chloride ER (KLOR- CON) 20 mEq tablet Indications: Malignant neoplasm of lung, unspecified laterality, unspecified part of lung (HCC) , Abnormal blood chemistry Take 1 tablet by mouth two times a day for 5 days. 10 tablet 02/24/2024 02/29/2024 ActiveStart: 12-28-2023 End: 45-28-9324xpvi 2 tablets by mouth once dailypotassium chloride [...] oral tablet (19 sources)HMG-CoA Reductase Inhibitor End: 09-95-5943waxd 1 tablet by mouth once dailyrosuvastatin (CRESTOR) 40 mg tablet Take 40 mg by mouth once daily. 11/10/2023 Discontinued (Discontinued by Patient)rosuvastatin (CRESTOR) 5 mg tablet Crestor TABS Refills: 0 Active Active End: 68-57-7633tgtr 1 tablet by mouth once dailyrosuvastatin (CRESTOR) 10 mg tablet Take 10 mg by mouth daily. Activevitamin b12 0.5 mg oral tablet (5 sources)Vitamin W31Yqmty: 11-02-2019 End: 03-13-6728poou 1 tablet by mouth once dailyCyanocobalamin (Vitamin B-12) (Vitamin B-12) 500 mcg Tablet Discontinued 500 MCG PO Daily November 02, 2019 12:00am March 21, 2020 11:07amvitamin e 90 mg oral capsule (20 sources)Start: 03-21-2020 End: 74-61-4164ggaj 1 capsule by mouth once dailyVitamin E [...] by mouth in the morning. Active End: 39-54-1408ollxabh E, dl,tocopheryl acet, (VITAMIN E, DL, ACETATE,) [...] (20 sources)Atopic dermatitis; Translations: [Other atopic dermatitis]Onset: 161126-72-3667QktljuuUcidflg disorders (20 sources)Panic disorder; Translations: [Panic disorder [episodic paroxysmal anxiety]]Onset: 525678-06-7942BpblacnJeaqgn and peripheral arterial embolism or thrombosis (6 sources)Bilateral atheroembolism of lower limbs; Translations: [Atheroembolism of bilateral lower extremities]Onset: 757572-39-2244 ChronicAttention-deficit, conduct, and disruptive behavior disorders (3 sources)Attention deficit hyperactivity disorder, combined type; Translations: [Attention-deficit hyperactivity disorder, combined type] 07-28-4080OljsbudRcbtpp of bronchus; lung (20 sources)Malignant neoplasm of upper lobe of left lung; Translations: [Malignant neoplasm of upper lobe, left bronchus or lung]Onset: 10-12-2023 82-92-3286SiykmrzBkbklc of bronchus; lung (1 source)History of malignant neoplasm of thoracic cavity structure; Translations: [Personal history of other malignant neoplasm of bronchus and lung]41-60-5720XqpatsdnJxjhqd; other respiratory and intrathoracic (7 sources)Malignant neoplasm of lower respiratory tract; Translations: [Malignant neoplasm of trachea]Onset: 554537-41-5709JbtyguoZvvnjckf (20 sources)Cataract; Translations: [Unspecified cataract]Onset: 04-29-2016 58-94-0573VvjavheHvmyhik obstructive pulmonary disease and bronchiectasis (20 sources)Chronic obstructive lung disease; Translations: [Chronic obstructive pulmonary disease, unspecified]Onset: 996449-57-5823OgyivadOzafedawflbku of surgical procedures or medical care (20 sources)Hypothyroidism following radioiodine therapy; Translations: [Postprocedural hypothyroidism]Onset: 979081-83-6359ZomhievTttqgiyefo associated with dizziness or vertigo (2 sources)Dizziness and giddiness; Translations: [Dizziness and giddiness] Onset: 45-96-0427FkrzdkubGxyelwwmnt and other anemia (1 source)Anemia; Translations: [Anemia, unspecified]46-27-6285NxheuqawIyfbbwxu mellitus without complication (20 sources)Prediabetes; Translations: [Prediabetes]Onset: 10-15-2020 Resolved: 928838-39-6703BwnlzfsiArvkuryng of lipid metabolism (20 sources)Mixed hyperlipidemia; Translations: [Mixed hyperlipidemia]Onset: 277138-04-4344DdsggeaY Codes: Adverse effects of medical drugs (1 source)Adverse effect of antineoplastic and immunosuppressive drugs, initial encounter; 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)]Onset: 55-06-1964ToqzpjdbXypuantcd hypertension (20 sources)Essential hypertension; Translations: [Essential (primary) hypertension]Onset: 11-23-2010 Resolved: 839523-85-8919FlvwzxzGhwqrxpn; including migraine (2 sources)Headache; including migraine; Translations: [Headache, unspecified] Onset: 80-74-6175Cgkhhdchgol of prostate (20 sources)Benign prostatic hyperplasia; Translations: [Benign prostatic hyperplasia with lower urinary tract symptoms]Onset: 12-23-2020 Resolved: 560132-10-6866AqsewhqHpmpwhihuvwli and screening for infectious disease (4 sources)Contact with and (suspected) exposure to other viral communicable diseases; Translations: [CONTCT EXPS OTH VIRL COMMUNICABL DZ]Onset: 01-24-2020 EpisodicLung disease due to external agents (5 sources)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; Translations: [Chronic and other pulmonary manifestations dueto radiation]Onset: ChronicMalaise and fatigue (20 sources)Chronic fatigue syndrome; Translations: [Chronic fatigue syndrome] Onset: 576873-14-5073UfxuqzbBxpfrad and fatigue (20 sources)Malaise and fatigue; Translations: [Other malaise]Onset: 09-27-2023 41-79-6887YgwrvrfyKtploumhfdqif mental health disorders (20 sources)Primary insomnia; Translations: [Primary insomnia]Onset: 10-03-2023 01-72-9455AnezcaqVpdxsfdzjcn chest pain (8 sources)Chest pain; Translations: [Chest pain, unspecified]Onset: 10-27-2024 40-02-5108DcbhgvvwWeuoncjom or stenosis of precerebral arteries (20 sources)Bilateral stenosis of carotid arteries; Translations: [Occlusion and stenosis of bilateral carotid arteries]Onset: 09-22-2020 Resolved: 619743-39-2765NivhdftFbilrxkdarxmsn (20 sources)Osteoarthritis of joint of left shoulder region; Translations: [Primary osteoarthritis, left shoulder]Onset: 12-15-2022 Resolved: 326653-82-3815LyvjvtdGsvas aftercare (3 sources)Under care of palliative care physician; Translations: [Encounter for palliative care]31-27-9004YpesgymxNyxgx aftercare (20 sources)Long-term current use of drug therapy; Translations: [Other custodial (current) drug therapy]Onset: 459109-44-9704KivkxiypErcfg aftercare (1 source)H/O: malignant neoplasm; Translations: [Encounter for follow-up examination after completed treatment for malignant neoplasm]41-55-3777Rhghtsrs Other aftercare (1 source)Long-term current use of systemic steroid; Translations: [alf (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]63-51-5192RimfjaqmNclts aftercare (1 source)Encounter for palliative care; Translations: [Palliative care by specialist]Onset: 09-36-7066QcxvpwsvUzcjj aftercare (1 source)terminal 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 operator (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; Translations: [terminal system operator (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]Onset: 38-91-1789KlzakwanUvkaw aftercare (1 source)Encounter for follow-up examination after completed treatment for malignant neoplasm; Translations:[Encounter for follow-up examination after completed treatment for malignant neoplasm]Onset: 41-82-8284JsitrynzOdvjy connective tissue disease (20 sources)History of cervical spine fusion; Translations: [Arthrodesis status] Onset: 163577-58-2661LhwuljtmZvzwv connective tissue disease (20 sources)Impingement syndrome of left shoulder region; Translations: [Impingement syndrome of left shoulder]Onset: 779037-37-3411NetxitskUgyro connective tissue disease (20 sources)Trochanteric bursitis of right hip; Translations: [Trochanteric bursitis, right hip]Onset: 085111-87-4905QdvlkexdWimwh connective tissue disease (4 sources)Impingement syndrome of right shoulder region; Translations: [Impingement syndrome of right shoulder]33-11-6835GxnpspzaAkerc connective tissue disease (2 sources)Muscle finding; Translations: [Myalgia, unspecified site]05-03-2024 EpisodicOther connective tissue disease (1 source)Neuralgia; Translations: [Neuralgia and neuritis, unspecified] 25-40-3636DqveuqizLwjfs connective tissue disease (1 source)Neuralgia and neuritis, unspecified; Translations: [Neuralgia]Onset: 10-02-7831CtpzkdhlVloxq ear and sense organ disorders (20 sources)Mixed conductive AND sensorineural hearing loss; Translations: [Mixed conductive and sensorineural hearing loss, unspecified]Onset: 04-29-2016 12-58-3307PvlxvybNjuci ear and sense organ disorders (3 sources)Tinnitus, unspecified ear; Translations: [Tinnitus, unspecified ear] Onset: 56-67-4940YrjzobtcOyyle inflammatory condition of skin (20 sources)Seborrheic dermatitis; Translations: [Seborrheic dermatitis, unspecified]Onset: 929365-25-6549LqboffvrSxipa lower respiratory disease (2 sources)Nodule of lung; Translations: [Solitary pulmonary nodule]10-24-2023 EpisodicOther lower respiratory disease (1 source)Solitary pulmonary nodule; Translations: [Lung nodule]Onset: 37-74-4455PudqgbnaOgorw lower respiratory disease (2 sources)Shortness of breath; Translations: [Shortness of breath]Onset: 48-58-7904RjavqsyhUogow lower respiratory disease (2 sources)Dyspnea; Translations: [Shortness of breath]75-67-2194NafwzwdwFproe male genital disorders (20 sources)Male erectile dysfunction, unspecified; Translations: [Impotence of organic origin]Onset: 367336-81-6187KynfmydMumre nervous system disorders (20 sources)Chronic pain syndrome; Translations: [Chronic pain syndrome]Onset: 04-14-2016 Resolved: 146925-97-4149UefrhomMlual nervous system disorders (1 source)Chronic pain; Translations: [Other chronic pain]49-44-9153HgxcrobEtxga nervous system disorders (2 sources)Neuropathy; Translations: [Drug-induced polyneuropathy]11-29-2023 ChronicOther nervous system disorders (20 sources)Neuropathy caused by chemical substance; Translations: [Drug-induced polyneuropathy]Onset: 227883-98-1139FruoidvUytkt nervous system disorders (1 source)Drug-induced polyneuropathy; 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)]Onset: 55-73-1783ZiipxzrZirnb nervous system disorders (1 source)Paraneoplastic neuromyopathy and neuropathy; 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)]Onset: 43-84-6065CkqkkzuEqrjq nervous system disorders (20 sources)Paresthesia of right lower limb; Translations: [Paresthesia of skin] Onset: 710261-85-0179GalfiemgBngfx nervous system disorders (20 sources)Abnormal gait; Translations: [Unsteadiness on feet]Onset: 10-12-2023 56-72-3264CepcpeooBnodj non-epithelial cancer of skin (20 sources)History of malignant neoplasm of skin; Translations: [Personal history of other malignant neoplasm of skin]Onset: 853709-13-8236Dsujhkhn Other non-traumatic joint disorders (20 sources)Rotator cuff arthropathy of right shoulder; Translations: [Other specific arthropathies, not elsewhere classified, right shoulder]Onset: 857654-48-6246XhxhawlEzxur non-traumatic joint disorders (4 sources)Hip pain; Translations: [Pain in right hip]34-97-5606DxcnqujrWhocd non-traumatic joint disorders (2 sources)Pain in right shoulder; Translations: [Pain in joint, shoulder region]30-50-0659ClifdefeSbsfn non-traumatic joint disorders (2 sources)Pain in left shoulder; Translations: [Pain in joint, shoulder region] 33-57-2663SiuogwopXjybu screening for suspected conditions (not mental disorders or infectious disease) (20 sources)Decreased testosterone level ; Translations: [Other specified abnormal findings of blood chemistry]Onset: 627780-75-5367BmrkxjqzWzpbk upper respiratory disease (20 sources)Allergic rhinitis due to pollen; Translations: [Allergic rhinitis due to pollen]Onset: 435256-58-8946XjpqumnEcciouccyr and visceral atherosclerosis (20 sources)Peripheral vascular disease, unspecified; Translations: [Peripheral vascular disease, unspecified]Onset: 347455-97-7443OluebovXumnfacd; pneumothorax; pulmonary collapse (11 sources)Pleural effusion; Translations: [Pleural effusion, not elsewhere classified]Onset: 273893-98-3051DomwxsvjDbiznttn codes; unclassified (3 sources)Insomnia co-occurrent and due to medical condition; Translations: [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 condition]39-32-1977DjpbkvnAxgjgvju codes; unclassified (1 source)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 condition; Translations: [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 condition]Onset: 73-60-2530ZeowkqhOfboxwnb codes; unclassified (20 sources)Patient encounter status; Translations: [Immunotherapy]Onset: 714179-36-1552SzoigytjQzmwpwatt and history of mental health and substance abuse codes (1 source)Ex-smoker; Translations: [Personal history of nicotine dependence] 09-01-3875RqynvbweKmmvcgbgwmz; intervertebral disc disorders; other back problems (20 sources)Lumbar disc prolapse with radiculopathy; Translations: [Degeneration of cervical intervertebral disc]Onset: 10-23-2019 Resolved: 240494-01-4545OsxjazkDcwlabesrwb; intervertebral disc disorders; other back problems (20 sources)Low back pain; Translations: [Radiculopathy, lumbar region]Onset: 04-29-2016 Resolved: 083416-57-6691KgaplkdcYugpxxf on above:Problem List clean-up per request of Phys. EHR CmteSprains and strains (2 sources)Tendon rupture - hip; Translations: [Strain of muscle, fascia and tendon of right hip, subsequent encounter]68-42-5518DyllikitFsprnahve-related disorders (20 sources)Nicotine dependence, cigarettes, uncomplicated; Translations: [Cigarette smoker ]Onset: 04-14-2016 Resolved: 892127-43-3215GgimpmwVqxdeeu disorders (1 source)Disorder of thyroid gland; Translations: [Other specified disorders of thyroid]95-44-5943DqqtcunkGhxgiujha cerebral ischemia (20 sources)Transient cerebral ischemia; Translations: [Transient cerebral ischemic attack, unspecified]Onset: 422425-71-5513BzblgrkQbwunrnavjdy (1 source)Extremity PainOnset: 05-57-1396Karhgoljpimg (2 sources)New PatientOnset: 59-68-7877Tnlzyvpgcivs (11 sources)Patient on antidepressant monitoring planOnset: 952682-74-7240 Unclassified (1 source)Medical ScreeningOnset: 42-88-4729Sebrluhlnrwf (1 source)Pre-op ExamOnset: 37-19-4881Gpqfnyawdffa (6 sources)Post hospital appointment. Please call to reschedule if needed. Unclassified (1 source)Lung CancerOnset: 59-65-8110Tkogaegwhmds (1 source)Immunotherapy; Translations: [Immunotherapy]Onset: 87-98-0153Dbijp infection (6 sources)Herpes zoster; Translations: [Zoster without complications]Onset: 340455-51-2989Rfrwfhtt Past or Other Problems Problem ClassificationProblemDateDocumented DateEpisodic/ChronicAcute bronchitis (20 sources)Acute infective bronchitis; Translations: [Acute bronchitis due to other specified organisms]Onset: 05-02-2023 Resolved: 740523-51-3951JzuqkoenSvhuyxnmwtevde/social admission (20 sources)Unemployed; Translations: [Unemployment, unspecified]Onset: 04-29-2016 Resolved: 739082-18-8315BqqnunjnLzjoicii; including migraine (20 sources)Headache disorder; Translations: [Headache disorder]Onset: 415296-58-1385LwbjtyibEostellqrpg (20 sources)External hemorrhoids; Translations: [Residual hemorrhoidal skin tags]Onset: 04-29-2016 Resolved: 739457-77-5419KoscgthmMnfcahquun infection (20 sources)Gastrointestinal infection; Translations: [Infectious gastroenteritis and colitis, unspecified]Onset: 07-17-2018 Resolved: 964353-42-7677SeuthfioBqwk disorders (20 sources)Mood disordersOnset: Nausea and vomiting (4 sources)Nausea; Translations: [Nausea]Onset: 390348-99-4743Pwpxrais Neoplasms of unspecified nature or uncertain behavior (5 sources)Paraneoplastic neuropathy; 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]Onset: 933429-12-3801GvuekqumQkhjryt system congenital anomalies (20 sources)Encephalocele of other sites; Translations: [Temporal encephalocele] Onset: 06-18-2018 Resolved: 481660-67-9737JzvwzzvRewht aftercare (1 source)Other custodial (current) drug therapy; Translations: [OTH HALF-WAY CURRENT DRUG THERAPY]Onset: 85-07-4452DjingalrWakcv circulatory disease (20 sources)History of cerebrovascular accident without residual deficits; Translations: [Personal history of transient ischemic attack (TIA), and cerebral infarction without residual deficits]Onset: 04-29-2016 Resolved: 164086-95-6578ZhbrbzuwPshxg circulatory disease (20 sources)History of cerebrovascular disease; Translations: [Personal history of transient ischemic attack (TIA), and cerebral infarction without residual deficits]Onset: 12-15-2022 Resolved: 940854-88-5540JtiyxjyuMlezs diseases of bladder and urethra (20 sources)Disorder of bladder; Translations: [Bladder disorder, unspecified] Onset: 06-13-2020 Resolved: 080613-78-3327KchcdnuFslqs ear and sense organ disorders (20 sources)Otorrhea of left ear; Translations: [Otorrhea, left ear]Onset: 08-01-2019 Resolved: 425750-76-0826FxfsifknYzdnq ear and sense organ disorders (20 sources)Tinnitus of left ear; Translations: [Tinnitus, left ear]Onset: 05-28-2018 Resolved: 901304-46-8488DzhtysfyAjzvs gastrointestinal disorders (20 sources)Constipation; Translations: [Constipation, unspecified]Onset: 10-15-2019 Resolved: 134519-47-9766QqtpmdruLdheo gastrointestinal disorders (20 sources)H/O: gastrointestinal disease; Translations: [Personal history of other diseases of the digestive system]Onset: 126307-41-5313AmmyhnnrIbcbi lower respiratory disease (3 sources)Other nonspecific abnormal finding of lung field; Translations: [Other nonspecific abnormal findingof lung field]Onset: 53-20-5753IuessqanZwajo lower respiratory disease (18 sources)Lung mass; Translations: [Other nonspecific abnormal finding of lung field]Onset: 09-28-2023 Resolved: 511003-22-3292EvjbtgnfUzgej nervous system disorders (20 sources)Difficulty walking; Translations: [Difficulty in walking, not elsewhere classified]Onset: 12-03-2019 Resolved: 193972-97-6844LypyzsmWupfb nervous system disorders (20 sources)Ataxia; Translations: [Ataxia, unspecified]Onset: 04-29-2016 Resolved: 663599-58-1119PzhfrfwcTvvyg nervous system disorders (20 sources)Abnormal reflex; Translations: [Abnormal reflex]Onset: 02-16-2012 Resolved: 155939-62-9832IunxooykIntfu nervous system disorders (20 sources)Impairment of balance; Translations: [Other abnormalities of gait and mobility]Onset: 04-27-2016 Resolved: 541187-11-9899JgxiqndyByhrv nervous system disorders (20 sources)Skin sensation disturbance; Translations: [Unspecified disturbances of skin sensation]Onset: 06-30-2020 Resolved: 329579-30-0017FekgdwdqXsjtj non-traumatic joint disorders (20 sources)Soft tissue lesion of shoulder region; Translations: [Other specified joint disorders, unspecified shoulder]Onset: EpisodicOther nutritional; endocrine; and metabolic disorders (20 sources)Body mass index 30+ - obesity; Translations: [Body mass index (BMI) 30.0-30.9, adult]Onset: 05-15-2019 Resolved: 271140-05-7561WihwaqwYjrkcmnr codes; unclassified (20 sources)Family history of malignant neoplasm of lung; Translations: [Family history of malignant neoplasm of trachea, bronchus and lung]Onset: 08-01-2019 73-82-9570QrnzxuxeKbiiengc codes; unclassified (20 sources)Family history of prostate cancer; Translations: [Family history of malignant neoplasm of prostate]Onset: 03-23-2018 Resolved: 645758-88-9675EkkdcsakDqwjubjh codes; unclassified (20 sources)Difficulty sleeping ; Translations: [Sleep disorder, unspecified] Onset: 10-14-2020 Resolved: 321292-93-7498AonixupuOwuxfcro codes; unclassified (20 sources)Postprocedural state finding; Translations: [Other specified postprocedural states]Onset: 12-15-2022 Resolved: 093832-14-1812TmkxuqrdVzqiarni codes; unclassified (20 sources)History of craniotomy; Translations: [Other specified postprocedural states]Onset: 833136-60-6601YkzpyqbnZdydxfk (8 sources)Syncope and collapse; Translations: [Syncope and collapse]Onset: 158791-96-5461OfbxveqoExqhryj disorders (20 sources)Hypothyroidism; Translations: [Hypothyroidism, unspecified]Onset: 11-23-2010 Resolved: 051228-20-3373VrhrfmcItlfnqggvpvl (20 sources)Onset: 145919-11-4809Kqprbvutkhjn (1 source)Patient encounter uuokpf31-40-5627 Results Test NameValueInterpretationReference RangeFacilityCNPNon 97-87-0781JMAHFrpgpu [facility] CenterBasophils Auto (Bld) [#/Vol]Ordered By: Lo Hancock on 12-32-7804Lxuquecue (Bld) [#/Vol]0.04 10*3/uL<0.11[facility] CenterBasophils/100 WBC Auto (Bld)Ordered By: Lo Hancock on 87-79-6602Hirliarla/100 WBC (Bld)0.5 %[facility] CenterBlood manual differential comment interpretation narrativeOrdered By: Lo Hancock on 74-41-9012Awzgxt differential comment Jean (Bld) [Interp]AutoUniversity Hospitals Portage Medical CenterCB W Auto Differential panel (Bld)on 30-22-8962Jzbdgwtfi (Bld) [#/Vol]0.04 10*3/uLNormal<0.11CCorey Hospital on above: Order Comment: Specimen Type: BLOOD SPECIMENOrdering Facility: [facility] Address:[address] [place] [address]Llkbbtqlc By: #### 54921- 8 ####[facility] LABCLIA [id number] [place], [place] [address]Eueakjcpo/100 WBC (Bld)0.5 %NormalFairfield Medical Center on above:Order Comment: Specimen Type: BLOOD SPECIMENOrdering Facility: [facility] Address:[address] [place], [place] [address]Performed By: #### 54866-1 ####[facility] LABCLIA [id number] [place], [place] [address]Krsrbttzbqmg cell count method Nom (Bld)AutoNormalCCorey Hospital on above:Order Comment: Specimen Type: BLOOD SPECIMENOrdering Facility: [facility] Address:[address] [place], [place] [address]Performed By: #### 29142-9 ####[facility] LABCLIA [id number] [place], [place] [address]Xbsmytsjvsr (Bld) [#/Vol]0.05 10*3/uLNormal<0.46[facility] on above:Order Comment: Specimen Type: BLOOD SPECIMENOrdering Facility: [facility] Address:[address] [place], [place] [address]Performed By: #### 25049-8 ####[facility] LABIA [id number] [place], [place] [address]Jagdimwmbog/100 WBC (Bld)0.6 %NormalFairfield Medical Center on above:Order Comment: Specimen Type: BLOOD SPECIMENOrdering Facility: [facility] Address:[address] [place], [place] [address]Performed By: #### 14553-9 ####[facility] LABCLIA [id number] [place], [place] [address]Gykxpvmjpym distribution width (RBC) [Ratio]16.4 %High 11.5-15.0[facility] on above:Order Comment: Specimen Type: BLOOD SPECIMENOrdering Facility: [facility] Address:[address] [place], [place] [address]Performed By: #### 28911-6 ####[facility] LABIA [id number] [place] [address] Hematocrit (Bld) [Volume fraction]37.6 %Low39.0-51.0[facility] Comment on above:Order Comment: Specimen Type: BLOOD SPECIMENOrdering Facility: [facility] Address:[address] [place] [address] Performed By: #### 79198-8 ####[facility] LABIA [id number] [place], [place] [address]Pygpthvpiv (Bld) [Mass/Vol]12.6 g/dLLow13.0-17.0[facility] on above:Order Comment: Specimen Type: BLOOD SPECIMENOrdering Facility: [facility] Address:[address] [place], [place] [address]Performed By: #### 74336-8 ####[facility] LABIA [id number] [place], [place] [address]Fkqcvrsj granulocytes (Bld) [#/Vol]0.16 10*3/uLHigh<0.10 [facility] on above:Order Comment: Specimen Type: BLOOD SPECIMENOrdering Facility: [facility] Address:[address] [place], [place] [address]Performed By: #### 79286-7 ####[facility] LABIA [id number] [place], [place] [address]Vhhawosm granulocytes/100 WBC (Bld)1.9 %NormalFairfield Medical Center on above: Order Comment: Specimen Type: BLOOD SPECIMENOrdering Facility: [facility] Address:[address] [place], [place] [address]Performed By: #### 17999- 8 ####[facility] LABIA [id number] [place], [place] [address]Pvekldvgakn (Bld) [#/Vol]0.84 10*3/uLLow1.00-4.00 [facility] on above:Order Comment: Specimen Type: BLOOD SPECIMENOrdering Facility: [facility] Address:[address] [place], [place] [address]Performed By: #### 55052-0 ####[facility] LABCLIA [id number] [place], [place] [address]Wpsbivejgtm/100 WBC (Bld)10.2 %NormalFairfield Medical Center on above:Order Comment: Specimen Type: BLOOD SPECIMENOrdering Facility: [facility] Address:[address] [place], [place] [address]Performed By: #### 36879-5 ####[facility] LABCLIA [id number] [place], [place] [address]MOG (RBC) [Entitic mass]29.9 qqNocbkh27.0-34.0[facility] on above:Order Comment: Specimen Type: BLOOD SPECIMENOrdering Facility: [facility] Address:[address] [place], [place] [address]Performed By: #### 98520-8 ####[facility] LABCLIA [id number] [place], [place] [address]JUQL (RBC) [Mass/Vol]33.5 g/gENjdzzn32.5-36.0[facility] on above: Order Comment: Specimen Type: BLOOD SPECIMENOrdering Facility: [facility] Address:[address] [place], [place] [address]Performed By: #### 25885- 8 ####[facility] LABCLIA [id number] [place], [place] [address]SHU (RBC) [Entitic vol]89.3 dXXdhtbe52.0-100.0[facility] on above:Order Comment: Specimen Type: BLOOD SPECIMENOrdering Facility: [facility] Address:[address] [place], [place] [address]Performed By: #### 91689-6 ####[facility] LABIA [id number] [place], [place] [address]Duzawyeic (Bld) [#/Vol]0.31 10*3/uLNormal<0.87[facility] on above:Order Comment: Specimen Type: BLOOD SPECIMENOrdering Facility: [facility] Address:[address] [place], [place] [address]Performed By: #### 30521- 8 ####[facility] LABCLIA [id number] [place], [place] [address]Pcsxpmdtm/100 WBC (Bld)3.8 %NormalFairfield Medical Center on above:Order Comment: Specimen Type: BLOOD SPECIMENOrdering Facility: [facility] Address:[address] [place], [place] [address]Performed By: #### 67554-8 ####[facility] LABCLIA [id number] [place], [place] [address]Mttvzwbbcop (Bld) [#/Vol]6.81 10*3/uLNormal1.45-7.50[facility] on above:Order Comment: Specimen Type: BLOOD SPECIMENOrdering Facility: [facility] Address:[address] [place], [place] [address]Performed By: #### 89004-3 ####[facility] LABCLIA [id number] [place], [place] [address]Ofzfeehinhv/100 WBC (Bld)83.0 %NormalFairfield Medical Center on above:Order Comment: Specimen Type: BLOOD SPECIMENOrdering Facility: [facility] Address:[address] [place], [place] [address]Performed By: #### 85208-2 ####[facility] LABCLIA [id number] [place], [place] [address]Ulupxulwm RBC (Bld) [#/Vol] 10*3/uLNormal<0.01[facility] on above:Order Comment: Specimen Type: BLOOD SPECIMENOrdering Facility: [facility] Address:[address] [place], [place] [address]Performed By: #### 27764-6 ####[facility] LABCLIA [id number] [place], [place] [address]Smwabdgex RBC/100 WBC (Bld) [Ratio]0.0 /100 WBCNormal [facility] on above:Order Comment: Specimen Type: BLOOD SPECIMENOrdering Facility: [facility] Address:[address] [place], [place] [address]Performed By: #### 87354-7 ####[facility] LABCLIA [id number] [place], [place] [address]Jhmpioem mean volume (Bld) [Entitic vol]9.4 fLNormal9.0-12.7CCorey Hospital on above:Order Comment: Specimen Type: BLOOD SPECIMENOrdering Facility: [facility] Address:[address] [place] [address] Performed By: #### 27912-6 ####[facility] LABCLIA [id number] [place], [place] [address]Qygumdmjo (Bld) [#/Vol]265 10*3/wHLorsrk375-520PtspydeqgFairfield Medical Center on above:Order Comment: Specimen Type: BLOOD SPECIMENOrdering Facility: [facility] Address:[address] [place], [place] [address]Performed By: #### 47514-1 ####[facility] LABCLIA [id number] [place], [place] [address]VPL (Bld) [#/Vol]4.21 10*6/uLNormal4.20-6.00[facility] on above:Order Comment: Specimen Type: BLOOD SPECIMENOrdering Facility: [facility] Address:[address] [place], [place] [address]Performed By: #### 67903-7 ####[facility] LABCLIA [id number] [place], [place] [address]ODJ (Bld) [#/Vol]8.21 10*3/uLNormal3.70-11.00[facility] on above: Order Comment: Specimen Type: BLOOD SPECIMENOrdering Facility: [facility] Address:[address] [place], [place] [address]Performed By: #### 67234- 8 ####[facility] LABCLIA [id number] [facility] [place], [place] [address]GTNBSMga 88-67-4780CPIPLTPsqtkgFnirrbjiyAkron Children's [facility] metabolic 2000 panelon 69-35-2046Csxktls [Mass/Vol]4.7 g/dLNormal 3.9-4.9CCorey Hospital on above:Order Comment: Specimen Type: BLOOD SPECIMENOrdering Facility: [facility] Address:[address] [place], [place] [address]Performed By: #### 38232-8 ####[facility] LABCLIA [id number] [facility], [place] [address]RLH [Catalytic activity/Vol]66 U/RInaitu83-946YxzxzgaggFairfield Medical Center on above:Order Comment: Specimen Type: BLOOD SPECIMENOrdering Facility: [facility] Address:[address] [place], [place] [address]Performed By: #### 64601-1 ####[facility] LABCLIA [id number] [facility] [place], [place] [address]UGP [Catalytic activity/Vol]35 U/XJuzown79-03YnlxntuaxFairfield Medical Center on above:Order Comment: Specimen Type: BLOOD SPECIMENOrdering Facility: [facility] Address:[address] [place], [place] [address]Performed By: #### 06004-8 ####[facility] LABCLIA [id number] [place], [place] [address]Yipgg gap [Moles/Vol]15 mmol/LNormal8-15[facility] on above:Order Comment: Specimen Type: BLOOD SPECIMENOrdering Facility: [facility] Address:[address] [place], [place] [address]Performed By: #### 47318- 8 ####SHANTANUNHMARIBEL [facility] LABCLIA [id number] [facility] [place], [place] [address]SRJ [Catalytic activity/Vol]21 U/KReouka57-92QcrxwuyhvFairfield Medical Center on above:Order Comment: Specimen Type: BLOOD SPECIMENOrdering Facility: [facility] Address:[address] [place], [place] [address]Performed By: #### 68596-1 ####[facility] LABCLIA [id number] [place], [place] [address]Shddvcewx [Mass/Vol]0.4 mg/dLNormal0.2-1.3CC[facility] on above:Order Comment: Specimen Type: BLOOD SPECIMENOrdering Facility: [facility] Address:[address] [place], [place] [address]Performed By: #### 27580- 8 ####[facility] H[facility]PITALMARIBEL [facility] LABCLIA [id number] [facility] [place], [place] [address]Cedkggd [Mass/Vol]9.8 mg/dLNormal8.5-10.2CC[facility]y Hospital on above:Order Comment: Specimen Type: BLOOD SPECIMENOrdering Facility: [facility] Address:[address] [place], [place] [address]Performed By: #### 67832-9 ####[facility] H[facility]PITALMARIBEL [facility] LABCLIA [id number] [place], [place] [address]Ojbcaqsw [Moles/Vol]96 mmol/L Gti76-513GkemqocrkFairfield Medical Center on above:Order Comment: Specimen Type: BLOOD SPECIMENOrdering Facility: [facility] Address:[address] [place], [place] [address]Performed By: #### 63476-5 ####[facility] H[facility]PITALMARIBEL [facility] LABCLIA [id number] [place] [address] CO2 [Moles/Vol]26 mmol/SParqws10-57YxtrehyvuFairfield Medical Center on above: Order Comment: Specimen Type: BLOOD SPECIMENOrdering Facility: [facility] Address:[address] [place], [place] [address]Kcnwnexmx By: #### 66925- 8 ####[facility] LABCLIA [id number] [place], [place] [address]Xvdiktauvh [Mass/Vol]0.76 mg/dLNormal0.73-1.22[facility] on above:Order Comment: Specimen Type: BLOOD SPECIMENOrdering Facility: [facility] Address:[address] [place], [place] [address]Performed By: #### 18509-0 ####[facility] LABIA [id number] [place], [place] [address]vCRAut SerPlBld CKD-EPI 523314 mL/min/1.73m???Normal>=60[facility] on above:Order Comment: Specimen Type: BLOOD SPECIMENOrdering Facility: [facility] Address:[address] [place], [place] [address]Result Comment: Estimated Glomerular Filtration Rate (eGFR) is [...] not accurately reflect actual GFR.Performed By: #### 10130-8 ####[facility] LABIA [id number] [place], [place] [address]Maxhwvs [Mass/Vol]272 mg/[id number] Medical Center on above:Order Comment: Specimen Type: BLOOD SPECIMENOrdering Facility: [facility] Address:[address] [place], [place] [address]Result Comment: The [place] [employer] (ADA) provides guidance for cutoff [...] Standards of Medical Care in Diabetes 2016, [place] [employer]. Diabetes Care. 2016.39(Suppl 1).Performed By: #### 60432-7 ####BOONE [facility] [id number] [place], [place] [address]Doehskcre [Moles/Vol]4.1 mmol/LNormal3.7-5.1CCorey Hospital on above:Order Comment: Specimen Type: BLOOD SPECIMENOrdering Facility: [facility] Address:[address] [place], [place] [address]Performed By: #### 57225-4 ####[facility] LABIA [id number] [place], [place] [address]Jmlokqf [Mass/Vol]7.0 g/dLNormal6.3-8.0[facility] on above:Order Comment: Specimen Type: BLOOD SPECIMENOrdering Facility: [facility] Address:[address] [place], [place] [address]Performed By: #### 29454- 8 ####[facility] LABIA [id number] [place], [place] [address]Btfwfp [Moles/Vol]137 mmol/UGuejoq199-236TaxpsvrdtFairfield Medical Center on above:Order Comment: Specimen Type: BLOOD SPECIMENOrdering Facility: [facility] Address:[address] [place], [place] [address]Performed By: #### 51104-9 ####[facility] LABIA [id number] [place], [place] [address]Kfco nitrogen [Mass/Vol]13 mg/dLNormal9-24[facility] on above:Order Comment: Specimen Type: BLOOD SPECIMENOrdering Facility: [facility] Address:[address] [place], [place] [address]Amqyjqdyf By: #### 05710-2 ####[facility] LABCLIA [id number] [place], [place] [address]Gpktas SerPl-mCncon 23-65-4776Izsygwwv [Mass/Vol]1.4 ug/dLLow4.8-19.5CKeenan Private HospitalComment on above:Order Comment: Specimen Type: BLOOD SPECIMENOrdering Facility: [facility] Address:[address] [place], [place] [address]Fszjsd Comment: Provided reference range is from 6-10 AM sample collection time.Cortisol Reference Range: 6-10 AM = 4.8-19.5 ug/dL, 4-8 PM = 2.5-11.9 ug/dLPerformed By: #### 3016-3, 2143-6 ####[facility] LABCLIA [id number] [place] [id number] [place] OF AMERICAEosinophils/100 WBC Auto (Bld) Ordered By: Lo Abanitaankar on 32-36-1634Txalandpzvw/100 WBC (Bld)0.6 %[facility] CenterErythrocyte distribution width Auto (RBC) [Ratio]Ordered By: Lo Abhyankar on 90-09-5357Cqlnfgslwbb distribution width (RBC) [Ratio] 16.4 %High11.5-15.0[facility] CenterGlomerular filtration rate [Volume Rate/Area] in Serum, Plasma or Blood by CreatinineOrdered By: Lo Bergeronankbrennan on 03-63-6389Daeldqrhek filtration rate [Volume Rate/Area] in Serum, Plasma or Blood by Ztayrbabxb16 mL/min/1.73m???>=60[facility] CenterComment on above:Estimated Glomerular Filtration Rate (eGFR) is [...] Serum or PlasmaOrdered By: Lo Hancock on 40-96-9032Lonqtdq [Mass/Vol]272 mg/eYFkdh51-43YuwtpfgtcUniversity Hospitals Portage Medical CenterComment on above: The [place] Diabetes Association (ADA) provides guidance for cutoff [...] diabetes.Reference: [employer] in Diabetes 2016, [place] [employer]. Diabetes Care. 2016.39(Suppl 1).Hematocrit Auto (Bld) [Volume fraction]Ordered By: Lo Hancock on 55-67-6803Ijmehupdno (Bld) [Volume fraction]37.6 %Low39.0-51.0 [facility] CenterHemoglobin [Mass/volume] in BloodOrdered By: Lo Hancock on 69-58-7538Iwevmjptlr (Bld) [Mass/Vol]12.6 g/dLLow13.0-17.0 [facility] CenterLaboratory - Chemistry and Chemistry - challengeOrdered By: Lo Hancock on 69-80-2949Ckpkgxx [Mass/Vol]4.7 g/dL 3.9-4.9[facility] CenterALP [Catalytic activity/Vol]66 U/L38-113 [facility] CenterALT [Catalytic activity/Vol]35 U/L10-54 [facility] CenterAST [Catalytic activity/Vol]21 U/L14-40 [facility] CenterBilirubin [Mass/Vol]0.4 mg/dL0.2-1.3FDayton Osteopathic HospitalCalcium [Mass/Vol]9.8 mg/dL8.5-10.2FDayton Osteopathic HospitalChloride [Moles/Vol]96 mmol/DYqy42-701IyfrqpjrmUniversity Hospitals Portage Medical CenterCO2 [Moles/Vol]26 mmol/O71-64EzcsjanneUniversity Hospitals Portage Medical CenterCreatinine [Mass/Vol]0.76 mg/dL0.73-1.22[facility] CenterPotassium [Moles/Vol]4.1 mmol/L3.7-5.1FSelect Medical TriHealth Rehabilitation Hospitalodium [Moles/Vol] 137 mmol/R644-172RwgcpuwvbUniversity Hospitals Portage Medical CenterTSH Qn0.821 m[IU]/L0.270-4.200 [facility] CenterUrea nitrogen [Mass/Vol]13 mg/dL9-24[facility] CenterLaboratory - Hematology and Cell countsOrdered By: Lo Hancock on 30-73-1711Auqtkfamjvd (Bld) [#/Vol]0.05 10*3/uL<0.46[facility] CenterImmature granulocytes (Bld) [#/Vol]0.16 10*3/uLHigh<0.10 [facility] CenterImmature granulocytes/100 WBC (Bld)1.9 % [facility] CenterLeukocytes [#/volume] corrected for nucleated erythrocytes in Blood by Automated counOrdered By: Lo Hancock on 12-07-2024 WBC corrected for nucl RBC Auto (Bld) [#/Vol]8.21 k/uL3.70-11.00[facility] CenterLymphocytes Auto (Bld) [#/Vol]Ordered By: Lo Hancock on 66-70-5129Eggnkzssqie (Bld) [#/Vol]0.84 10*3/uLLow1.00-4.00[facility] CenterLymphocytes/100 WBC Auto (Bld)Ordered By: Lo Hancock on 32-13-8883Ccaznretdzm/100 WBC (Bld)10.2 %[facility] MCH Auto (RBC) [Entitic mass]Ordered By: Lo Hnacock on 50-77-6977PTK (RBC) [Entitic mass]29.9 pg26.0-34.0[facility] CenterMCHC Auto (RBC) [Mass/Vol]Ordered By: Lo Hancock on 32-04-2709IWVX (RBC) [Mass/Vol]33.5 g/dL30.5-36.0[facility] CenterMCV Auto (RBC) [Entitic vol] Ordered By: Lo Hancock on 87-13-2370QCK (RBC) [Entitic vol]89.3 fL 80.0-100.0[facility] CenterMonocytes Auto (Bld) [#/Vol]Ordered By: oL Hancock on 55-27-3151Qgqtcdzox (Bld) [#/Vol]0.31 10*3/uL<0.87 [facility] CenterMonocytes/100 WBC Auto (Bld)Ordered By: Lo Hancock on 42-77-5098Zczxxioej/100 WBC (Bld)3.8 %[facility] Medical CenterNeutrophils Auto (Bld) [#/Vol]Ordered By: Lo Hancock on 12-07-2024 Neutrophils (Bld) [#/Vol]6.81 10*3/uL1.45-7.50[facility] Neutrophils/100 WBC Auto (Bld)Ordered By: Lo Hnacock on 12-07-2024 Neutrophils/100 WBC (Bld)83.0 %[facility] CenterNucleated RBC Auto (Bld) [#/Vol]Ordered By: Lo Hancock on 86-48-4154Ohmztttcf RBC (Bld) [#/Vol]10*3/uL<0.01[facility] CenterNucleated erythrocytes [Presence] in Blood by Automated countOrdered By: Lo Hancock on 12-07-2024 Nucleated RBC Auto Ql (Bld)0.0 /100{WBC}[facility] Platelet mean volume Auto (Bld) [Entitic vol]Ordered By: Lo Hancock on 97-49-1010Zmzvrgsn mean volume (Bld) [Entitic vol]9.4 fL9.0-12.7FDayton Osteopathic HospitalPlatelets Auto (Bld) [#/Vol]Ordered By: Lo Hancock on 80-18-0062Qwhmqpics (Bld) [#/Vol]265 10*3/dV870-528NukxocejkUniversity Hospitals Portage Medical CenterProtein [Mass/volume] in Serum or PlasmaOrdered By: Lo Hancock on 47-00-9378Yedpgva [Mass/Vol]7.0 g/dL6.3-8.0[facility] CenterRBC Auto (Bld) [#/Vol]Ordered By: Lo Hancock on 43-22-3524SAX (Bld) [#/Vol]4.21 10*6/uL4.20-6.00Kettering Health Daytonerum or plasma anion gap determinationOrdered By: Lo Hancock on 99-93-3140Rgtyb gap [Moles/Vol]15 mmol/L8-15[facility] CenterTS SerPl-aCncon 52-81-9521YZW Qn 0.821 m[IU]/LNormal0.270-4.200Fire[facility] Medical CenterComment on above:Order Comment: Specimen Type: BLOOD SPECIMENOrdering Facility: [facility] Address:[address] [place], [place] [address]Performed By: #### 3016- 3, 2143-6 ####[facility] LABCLIA [id number] [facility]ICAL CENTERGi[place] [address] [place] OF AMERICACNOVon 64-03-2720NNWM NormalFirelands Regional Medical CenterBasophils Auto (Bld) [#/Vol]Ordered By: Preston Hernández on 91-08-2110Ejrrugfoj (Bld) [#/Vol]0.03 10*3/uL<0.11[facility] CenterBasophils/100 WBC Auto (Bld)Ordered By: Preston Hernández on 11-23-2024 Basophils/100 WBC (Bld)0.3 %[facility] CenterBlood manual differential comment interpretation narrativeOrdered By: Preston Hernández on 57-80-2015Upwnjz differential comment Jean (Bld) [Interp]AutoUniversity Hospitals Portage Medical CenterCBC W Auto Differential panel (Bld)on 97-02-4322Faibdvffg (Bld) [#/Vol]0.03 10*3/uLNormal<0.11CCorey Hospital on above:Order Comment: Specimen Type: BLOOD SPECIMENOrdering Facility: [facility] Address:[address] [place], [place] [address]Performed By: #### 66504- 8 ####[facility] LABCLIA [id number] [place], [place] [address]Qcdnpljtt/100 WBC (Bld)0.3 %NormalFairfield Medical Center on above:Order Comment: Specimen Type: BLOOD SPECIMENOrdering Facility: [facility] Address:[address] [place], [place] [address]Performed By: #### 41474-0 ####[facility] LABCLIA [id number] [place], [place] [address]Cuwscowpqukx cell count method Nom (Bld)AutoNormalCCorey Hospital on above:Order Comment: Specimen Type: BLOOD SPECIMENOrdering Facility: [facility] Address:[address] [place], [place] [address]Performed By: #### 70903-7 ####[facility] LABCLIA [id number] [place], [place] [address]Qhtyvnherga (Bld) [#/Vol]0.05 10*3/uLNormal<0.46[facility] on above:Order Comment: Specimen Type: BLOOD SPECIMENOrdering Facility: [facility] Address:[address] [place], [place] [address]Performed By: #### 09573-4 ####[facility] LABCLIA [id number] [place], [place] [address]Evswdtzunqj/100 WBC (Bld)0.5 %NormalFairfield Medical Center on above:Order Comment: Specimen Type: BLOOD SPECIMENOrdering Facility: [facility] Address:[address] [place], [place] [address]Performed By: #### 63905-0 ####[facility] HOSPITALMARIBEL [facility] LABCL[facility] [id number] [place], [place] [address]Vxxlrxajzit distribution width (RBC) [Ratio]16.3 %High 11.5-15.0[facility] on above:Order Comment: Specimen Type: BLOOD SPECIMENOrdering Facility: [facility] Address:[address] [place], [place] [address]Performed By: #### 55440-0 ####[facility] LABIA [id number] [place] [address] Hematocrit (Bld) [Volume fraction]35.6 %Low39.0-51.0[facility] Comment on above:Order Comment: Specimen Type: BLOOD SPECIMENOrdering Facility: [facility] Address:[address] [place] [address] Performed By: #### 83393-1 ####[facility] LABIA [id number] [place], [place] [address]Cfhvbwbwev (Bld) [Mass/Vol]11.8 g/dLLow13.0-17.0[facility] on above:Order Comment: Specimen Type: BLOOD SPECIMENOrdering Facility: [facility] Address:[address] [place], [place] [address]Performed By: #### 67923-1 ####[facility] LABIA [id number] [place], [place] [address]Covphfpc granulocytes (Bld) [#/Vol]0.14 10*3/uLHigh<0.10 [facility] on above:Order Comment: Specimen Type: BLOOD SPECIMENOrdering Facility: [facility] Address:[address] [place], [place] [address]Performed By: #### 79329-2 ####[facility] LABIA [id number] [place], [place] [address]Pzpwtulp granulocytes/100 WBC (Bld)1.3 %NormalFairfield Medical Center on above: Order Comment: Specimen Type: BLOOD SPECIMENOrdering Facility: [facility] Address:[address] [place], [place] [address]Performed By: #### 33883- 8 ####[facility] LABCLIA [id number] [place], [place] [address]Uoyslrqoauq (Bld) [#/Vol]0.96 10*3/uLLow1.00-4.00 [facility] on above:Order Comment: Specimen Type: BLOOD SPECIMENOrdering Facility: [facility] Address:[address] [place], [place] [address]Performed By: #### 42817-1 ####[facility] LABCLIA [id number] [place], [place] [address]Zouamggatmo/100 WBC (Bld)8.7 %NormalFairfield Medical Center on above:Order Comment: Specimen Type: BLOOD SPECIMENOrdering Facility: [facility] Address:[address] [place], [place] [address]Performed By: #### 64958-2 ####[facility] LABCLIA [id number] [place], [place] [address]CWT (RBC) [Entitic mass]29.4 bnKaywwl25.0-34.0[facility] on above:Order Comment: Specimen Type: BLOOD SPECIMENOrdering Facility: [facility] Address:[address] [place], [place] [address]Performed By: #### 13554-9 ####[facility] HOSPITALMARIBEL [facility] LABIA [id number] [place], [place] [address]PIKT (RBC) [Mass/Vol]33.1 g/mLPfymcn34.5-36.0[facility] on above: Order Comment: Specimen Type: BLOOD SPECIMENOrdering Facility: [facility] Address:[address] [place], [place] [address]Performed By: #### 13752- 8 ####[facility] LABCLIA [id number] [place], [place] [address]TJH (RBC) [Entitic vol]88.8 rQWduqpq14.0-100.0[facility] on above:Order Comment: Specimen Type: BLOOD SPECIMENOrdering Facility: [facility] Address:[address] [place], [place] [address]Performed By: #### 67470-3 ####[facility] LABCLIA [id number] [place], [place] [address]Oqpdpoulz (Bld) [#/Vol]0.66 10*3/uLNormal<0.87[facility] on above:Order Comment: Specimen Type: BLOOD SPECIMENOrdering Facility: [facility] Address:[address] [place], [place] [address]Performed By: #### 28981- 8 ####[facility] LABCLIA [id number] [place], [place] [address]Lkzsvqzqk/100 WBC (Bld)6.0 %NormalFairfield Medical Center on above:Order Comment: Specimen Type: BLOOD SPECIMENOrdering Facility: [facility] Address:[address] [place], [place] [address]Performed By: #### 42751-4 ####[facility] LABCLIA [id number] [place], [place] [address]Vhizmqgzhqt (Bld) [#/Vol]9.23 10*3/uLHigh1.45-7.50[facility] on above:Order Comment: Specimen Type: BLOOD SPECIMENOrdering Facility: [facility] Address:[address] [place], [place] [address]Performed By: #### 69248-4 ####[facility] LABCLIA [id number] [place], [place] [address]Xrsfohjzzet/100 WBC (Bld)83.2 %NormalFairfield Medical Center on above:Order Comment: Specimen Type: BLOOD SPECIMENOrdering Facility: [facility] Address:[address] [place], [place] [address]Performed By: #### 40651-4 ####[facility] LABCLIA [id number] [place], [place] [address]Atdgmvikx RBC (Bld) [#/Vol] 10*3/uLNormal<0.01[facility] on above:Order Comment: Specimen Type: BLOOD SPECIMENOrdering Facility: [facility] Address:[address] [place], [place] [address]Performed By: #### 04478-1 ####[facility] LABCLIA [id number] [place], [place] [address]Noyupshsg RBC/100 WBC (Bld) [Ratio]0.0 /100 WBCNormal [facility] on above:Order Comment: Specimen Type: BLOOD SPECIMENOrdering Facility: [facility] Address:[address] [place], [place] [address]Performed By: #### 51329-9 ####[facility] LABCLIA [id number] [place], [place] [address]Evcrrqhh mean volume (Bld) [Entitic vol]9.6 fLNormal9.0-12.7CCorey Hospital on above:Order Comment: Specimen Type: BLOOD SPECIMENOrdering Facility: [facility] Address:[address] [place] [address] Performed By: #### 37955-9 ####[facility] LABCLIA [id number] [place], [place] [address]Hebkacqut (Bld) [#/Vol]284 10*3/sJFwiacm468-975DvunmtgfiFairfield Medical Center on above:Order Comment: Specimen Type: BLOOD SPECIMENOrdering Facility: [facility] Address:[address] [place], [place] [address]Performed By: #### 29998-8 ####[facility] LABCLIA [id number] [place], [place] [address]PAI (Bld) [#/Vol]4.01 10*6/uLLow4.20-6.00[facility] on above:Order Comment: Specimen Type: BLOOD SPECIMENOrdering Facility: [facility] Address:[address] [place], [place] [address]Performed By: #### 17263-1 ####[facility] LABCLIA [id number] [place], [place] [address]UEB (Bld) [#/Vol]11.07 10*3/uL High3.70-11.00[facility] on above:Order Comment: Specimen Type: BLOOD SPECIMENOrdering Facility: [facility] Address:[address] [place], [place] [address]Performed By: #### 52574-8 ####[facility] LABIA [id number] [place] [address] Basophils (Bld) [#/Vol]Normal<0.11CC[facility] on above: Order Comment: Specimen Type: BLOOD SPECIMENOrdering Facility: [facility] Address:[address] [place], [place] [address]Result Comment: Disregard results. Specimen incorrectly identified.Corrected result: Previously reported as <0.03 k/uL on 11/23/2024 at 2:43 PM EDT.Performed By: #### 17561-3 ####[facility] LABIA [id number] [place], [place] [address]Lyimjqoxb/100 WBC (Bld)NormalFirelands Regional Medical Center Comment on above:Order Comment: Specimen Type: BLOOD SPECIMENOrdering Facility: [facility] Address:[address] [place], [place] [address]Result Comment: Disregard results. Specimen incorrectly identified.Corrected result: Previously reported as 0.6 % on 11/23/2024 at 2:43 PM EDT.Performed By: #### 44490-6 ####[facility] LABCLIA [id number] [place], [place] [address]Bkoaqfqztrbh cell count method Nom (Bld)AutoNormal [facility] on above:Order Comment: Specimen Type: BLOOD SPECIMENOrdering Facility: [facility] Address:[address] [place], [place] [address]Performed By: #### 33022-7 ####[facility] LABCLIA [id number] [place], [place] [address]Lclhprofjyq (Bld) [#/Vol]Normal<0.46[facility] on above:Order Comment: Specimen Type: BLOOD SPECIMENOrdering Facility: [facility] Address:[address] [place], [place] [address]Result Comment: Disregard results. Specimen incorrectly identified.Corrected result: Previously reported as 0.05 k/uL on 11/23/2024 at 2:43 PM EDT.Performed By: #### 43072-4 ####[facility] LABCLIA [id number] [place], [place] [address]Dqnfgeepajx/100 WBC (Bld)NormalFirelands Regional Medical Center Comment on above:Order Comment: Specimen Type: BLOOD SPECIMENOrdering Facility: [facility] Address:[address] [place] [address] Comment: Disregard results. Specimen incorrectly identified.Corrected result: Previously reported as 1.5 % on 11/23/2024 at 2:43 PM EDT.Performed By: #### 80001-8 ####[facility] LABCLIA [id number] [place], [place] [address]Fhjxssvvzng distribution width (RBC) [Ratio]Normal 11.5-15.0[facility] on above:Order Comment: Specimen Type: BLOOD SPECIMENOrdering Facility: [facility] Address:[address] [place] [address] Comment: Disregard results. Specimen incorrectly identified.Corrected result: Previously reported as 12.8 % on 11/23/2024 at 2:43 PM EDT.Corrected result: Previously reported as 12.8 % on 11/23/2024 at 3:15 PM EDT.Performed By: #### 91205-2 ####[facility] LABIA [id number] [place] [address] Hematocrit (Bld) [Volume fraction]Qdicsj77.0-51.0[facility] Comment on above:Order Comment: Specimen Type: BLOOD SPECIMENOrdering Facility: [facility] Address:[address] [place] [address] Comment: Disregard results. Specimen incorrectly identified.Corrected result: Previously reported as 37.2 % on 11/23/2024 at 2:43 PM EDT.Corrected result: Previously reported as 37.2 % on 11/23/2024 at 3:15 PM EDT.Performed By: #### 73546-9 ####[facility] LABIA [id number] [place], [place] [address]Erawindmnn (Bld) [Mass/Vol]Wsinga57.0-17.0[facility] Regional Medical CenterComment on above:Order Comment: Specimen Type: BLOOD SPECIMENOrdering Facility: [facility] Address:[address] [place] [address] Comment: Disregard results. Specimen incorrectly identified.Corrected result: Previously reported as 12.3 g/dL on 11/23/2024 at 2:43 PM EDT.Corrected result: Previously reported as 12.3 g/dL on11/23/2024 at 3:15 PM EDT.Performed By: #### 77552-6 ####[facility] LABIA [id number] [place], [place] [address]Vgbdivia granulocytes (Bld) [#/Vol]Normal<0.10[facility] Medical CenterComhenry ford [facility] on above:Order Comment: Specimen Type: BLOOD SPECIMENOrdering Facility: [facility] Address:[address] [place] [address] Comment: Disregard results. Specimen incorrectly identified.Corrected result: Previously reported as 0.08 k/uL on 11/23/2024 at 2:43 PM EDT.Performed By: #### 51800-9 ####[facility] LABCLIA [id number] [place], [place] [address]Efwfchoe granulocytes/100 WBC (Bld)NormalFairfield Medical Center on above:Order Comment: Specimen Type: BLOOD SPECIMENOrdering Facility: [facility] Address:[address] [place] [address] Comment: Disregard results. Specimen incorrectly identified.Corrected result: Previously reported as 2.4 % on 11/23/2024 at 2:43 PM EDT.Performed By: #### 06696-8 ####[facility] LABIA [id number] [place], [place] [address]Nyqtktbqrwf (Bld) [#/Vol]Normal 1.00-4.00[facility] on above:Order Comment: Specimen Type: BLOOD SPECIMENOrdering Facility: [facility] Address:[address] [place] [address] Comment: Disregard results. Specimen incorrectly identified.Corrected result: Previously reported as 0.84 k/uL on 11/23/2024 at 2:43 PM EDT.Performed By: #### 29761-0 ####[facility] LABIA [id number] [place] [address] Lymphocytes/100 WBC (Bld)NormalFairfield Medical Center on above:Order Comment: Specimen Type: BLOOD SPECIMENOrdering Facility: [facility] Address:[address] [place] [address] Comment: Disregard results. Specimen incorrectly identified.Corrected result: Previously reported as 24.7 % on 11/23/2024 at 2:43 PM EDT.Performed By: #### 03784-9 ####[facility] LABCLIA [id number] [place] [address] MCH (RBC) [Entitic mass]Fbgrua63.0-34.0[facility] on above:Order Comment: Specimen Type: BLOOD SPECIMENOrdering Facility: [facility] Address:[address] [place] [address] Comment: Disregard results. Specimen incorrectly identified.Corrected result: Previously reported as 29.7 pg on 11/23/2024 at 2:43 PM EDT.Corrected result: Previously reported as 29.7 pg on 11/23/2024 at 3:15 PM EDT.Performed By: #### 25535-1 ####[facility] LABCLIA [id number] [place], [place] [address]NFDW (RBC) [Mass/Vol]Nkawij72.5-36.0[facility] on above:Order Comment: Specimen Type: BLOOD SPECIMENOrdering Facility: [facility] Address:[address] [place] [address] Comment: Disregard results. Specimen incorrectly identified.Corrected result: Previously reported as 33.1 g/dL on 11/23/2024 at 2:43 PM EDT.Corrected result: Previously reported as 33.1 g/dL on11/23/2024 at 3:15 PM EDT.Performed By: #### [id number] ####[facility] LABCLIA [id number] [place], [place] [address]HBP (RBC) [Entitic vol] [id number] on above:Order Comment: Specimen Type: BLOOD SPECIMENOrdering Facility: [facility] Address:[address] [place] [address] Comment: Disregard results. Specimen incorrectly identified.Corrected result: Previously reported as 89.9 fL on 11/23/2024 at 2:43 PM EDT.Corrected result: Previously reported as 89.9 fL on 11/23/2024 at 3:15 PM EDT.Performed By: #### [id number] ####[facility] LABCLIA [id number] [place], [place] [address]Hwewjsrcs (Bld) [#/Vol]Normal<0.87[facility] on above:Order Comment: Specimen Type: BLOOD SPECIMENOrdering Facility: [facility] Address:[address] [place] [address] Comment: Disregard results. Specimen incorrectly identified.Corrected result: Previously reported as 0.38 k/uL on 11/23/2024 at 2:43 PM EDT.Performed By: #### [id number] ####[facility] LABCLIA [id number] [place], [place] [address]Jvjynogkm/100 WBC (Bld)NormalFirelands Regional Medical Center Comment on above:Order Comment: Specimen Type: BLOOD SPECIMENOrdering Facility: [facility] Address:[address] [place] [address] Comment: Disregard results. Specimen incorrectly identified.Corrected result: Previously reported as 11.2 % on 11/23/2024 at 2:43 PM EDT.Performed By: #### 53986-5 ####[facility] LABCLIA [id number] [place], [place] [address]Sdxefltvhzi (Bld) [#/Vol]Normal1.45-7.50[facility] on above:Order Comment: Specimen Type: BLOOD SPECIMENOrdering Facility: [facility] Address:[address] [place] [address] Comment: Disregard results. Specimen incorrectly identified.Corrected result: Previously reported as 2.03 k/uL on 11/23/2024 at 2:43 PM EDT.Performed By: #### 59473-6 ####[facility] LABIA [id number] [place], [place] [address]Ablwwbuwtbv/100 WBC (Bld)NormalFairfield Medical Center on above:Order Comment: Specimen Type: BLOOD SPECIMENOrdering Facility: [facility] Address:[address] [place] [address] Comment: Disregard results. Specimen incorrectly identified.Corrected result: Previously reported as 59.6 % on 11/23/2024 at 2:43 PM EDT.Performed By: #### 16592-9 ####[facility] LABCLIA [id number] [place], [place] [address]Rdxrhrrk mean volume (Bld) [Entitic vol]Normal9.0-12.7CCorey [facility] on above:Order Comment: Specimen Type: BLOOD SPECIMENOrdering Facility: [facility] Address:[address] [place] [address] Comment: Disregard results. Specimen incorrectly identified.Corrected result: Previously reported as 11.4 fL on 11/23/2024 at 2:43 PM EDT.Corrected result: Previously reported as 11.4 fL on 11/23/2024 at 3:15 PM EDT.Performed By: #### 92814-2 ####[facility] LABCLIA [id number] [place], [place] [address]Gxhojegaz (Bld) [#/Vol]Pxdjzu305-854AsvamyjyeFairfield Medical Center on above:Order Comment: Specimen Type: BLOOD SPECIMENOrdering Facility: [facility] Address:[address] [place] [address] Comment: Disregard results. Specimen incorrectly identified.Corrected result: Previously reported as 169 k/uL on 11/23/2024 at 2:43 PM EDT.Corrected result: Previously reported as 169 k/uL on 11/23/2024 at 3:15 PM EDT.Performed By: #### 08857-6 ####[facility] LABCLIA [id number] [place], [place] [address]FZM (Bld) [#/Vol]Normal 4.20-6.00[facility] on above:Order Comment: Specimen Type: BLOOD SPECIMENOrdering Facility: [facility] Address:[address] [place] [address] Comment: Disregard results. Specimen incorrectly identified.Corrected result: Previously reported as 4.14 m/uL on 11/23/2024 at 2:43 PM EDT.Corrected result: Previously reported as 4.14 m/uL on 11/23/2024 at 3:15 PM EDT.Performed By: #### 95170-0 ####[facility] LABCLIA [id number] [place], [place] [address]AUY (Bld) [#/Vol]Normal3.70-11.00[facility] on above:Order Comment: Specimen Type: BLOOD SPECIMENOrdering Facility: [facility] Address:[address] [place], [place] [address]Result Comment: Disregard results. Specimen incorrectly identified.Corrected result: Previously reported as 3.40 k/uL on 11/23/2024 at 2:43 PM EDT.Corrected result: Previously reported as 3.40 k/uL on11/23/2024 at 3:15 PM EDT.Performed By: #### 43479-8 ####[facility] LABCLIA [id number] [place], [place] [address]GYIXKZwj 36-51-6592XOZIANBoxphvKrdvpunovAkron Children's Hospital metabolic 2000 panelon 94-94-6215Gskavnu [Mass/Vol]4.5 g/dLNormal 3.9-4.9CCorey Hospital on above:Order Comment: Specimen Type: BLOOD SPECIMENOrdering Facility: [facility] Address:[address] [place], [place] [address]Performed By: #### 81080-2 ####[facility] LABCLIA [id number] [place], [place] [address]UYE [Catalytic activity/Vol]55 U/IIceoep35-388EbwomgecqFairfield Medical Center on above:Order Comment: Specimen Type: BLOOD SPECIMENOrdering Facility: [facility] Address:[address] [place], [place] [address]Performed By: #### 20422-1 ####[facility] LABCLIA [id number] [place], [place] [address]EJU [Catalytic activity/Vol]30 U/ZEcrlpa78-97SvjygotulFairfield Medical Center on above:Order Comment: Specimen Type: BLOOD SPECIMENOrdering Facility: [facility] Address:[address] [place], [place] [address]Performed By: #### 04511-0 ####[facility] LABCLIA [id number] [place], [place] [address]Dzkkp gap [Moles/Vol]11 mmol/LNormal8-15[facility] on above:Order Comment: Specimen Type: BLOOD SPECIMENOrdering Facility: [facility] Address:[address] [place], [place] [address]Performed By: #### 79449- 8 ####[facility] LABCLIA [id number] [place], [place] [address]CME [Catalytic activity/Vol]17 U/GIqhqmy27-72VuljrigvhFairfield Medical Center on above:Order Comment: Specimen Type: BLOOD SPECIMENOrdering Facility: [facility] Address:[address] [place], [place] [address]Performed By: #### 15100-1 ####[facility] LABCLIA [id number] [place], [place] [address]Jhxqrzccw [Mass/Vol]0.3 mg/dLNormal0.2-1.3CCorey Hospital on above:Order Comment: Specimen Type: BLOOD SPECIMENOrdering Facility: [facility] Address:[address] [place], [place] [address]Performed By: #### 92732- 8 ####[facility] LABCLIA [id number] [facility] [place], [place] [address]Cjyleng [Mass/Vol]8.9 mg/dLNormal8.5-10.2CCorey Hospital on above:Order Comment: Specimen Type: BLOOD SPECIMENOrdering Facility: [facility] Address:[address] [place], [place] [address]Performed By: #### 15325-3 ####[facility] LABCLIA [id number] [place], [place] [address]Aowkkqdh [Moles/Vol]102 mmol/L Sstkgs63-991BlmurhayhFairfield Medical Center on above:Order Comment: Specimen Type: BLOOD SPECIMENOrdering Facility: [facility] Address:[address] [place] [address]Fxyjpsjuk By: #### 47766-3 ####[facility] LABCLIA [id number] [place] [address] CO2 [Moles/Vol]27 mmol/WKwadqh87-57IjxmqtdltFairfield Medical Center on above: Order Comment: Specimen Type: BLOOD SPECIMENOrdering Facility: [facility] Address:[address] [place] [address]Htekddwbr By: #### 80555- 8 ####[facility] LABCLIA [id number] [place], [place] [address]Dtykkkjzux [Mass/Vol]0.67 mg/dLLow0.73-1.22[facility] on above:Order Comment: Specimen Type: BLOOD SPECIMENOrdering Facility: [facility] Address:[address] [place] [address]Yukddivoh By: #### 41229-9 ####[facility] LABCLIA [id number] [place], [place] [address]dDJQwc SerPlBld CKD-EPI [id number] mL/min/1.73m???Normal>=60[facility] on above:Order Comment: Specimen Type: BLOOD SPECIMENOrdering Facility: [facility] Address:[address] [place] [address]Ozearr Comment: Estimated Glomerular Filtration Rate (eGFR) is [...] not accurately reflect actual GFR.Performed By: #### 22118-1 ####[facility] LABCLIA [id number] [place], [place] [address]Ncsxzmr [Mass/Vol]125 mg/nFBppc42-05JlfzudrzlFairfield Medical Center on above:Order Comment: Specimen Type: BLOOD SPECIMENOrdering Facility: [facility] Address:[address] [place], [place] [address]Result Comment: The [place] Diabetes Association (ADA) provides guidance for cutoff [...] Standards of Medical Care in Diabetes 2016, [place] [employer]. Diabetes Care. 2016.39(Suppl 1).Performed By: #### 70994-1 ####[facility] LABCLIA [id number] [place], [place] [address]Mcjyrwszb [Moles/Vol]4.1 mmol/LNormal3.7-5.1CCorey Hospital on above:Order Comment: Specimen Type: BLOOD SPECIMENOrdering Facility: [facility] Address:[address] [place] [address]Ijqnplnev By: #### 03871-3 ####[facility] LABCLIA [id number] [place], [place] [address]Jfewlbo [Mass/Vol]6.5 g/dLNormal6.3-8.0[facility] on above:Order Comment: Specimen Type: BLOOD SPECIMENOrdering Facility: [facility] Address:[address] [place], [place] [address]Performed By: #### 22896- 8 ####[facility] LABCLIA [id number] [place], [place] [address]Hoiubf [Moles/Vol]140 mmol/YDdcwrc654-735ZspirsxymFairfield Medical Center on above:Order Comment: Specimen Type: BLOOD SPECIMENOrdering Facility: [facility] Address:[address] [place], [place] [address]Performed By: #### 10482-7 ####[facility] LABCLIA [id number] [place], [place] [address]Gbhj nitrogen [Mass/Vol]17 mg/dLNormal9-24[facility] on above:Order Comment: Specimen Type: BLOOD SPECIMENOrdering Facility: [facility] Address:[address] [place], [place] [address]Performed By: #### 15720-4 ####[facility] LABCLIA [id number] [place], [place] [address]Usrcrt SerPl-mCncon 32-71-4795Zvxkjxvl [Mass/Vol]2.7 ug/dLLow4.8-19.5CCorey Hospital on above:Order Comment: Specimen Type: BLOOD SPECIMENOrdering Facility: [facility] Address:[address] [place], [place] [address]Result Comment: Provided reference range is from 6-10 AM sample collection time.Cortisol Reference Range: 6-10 AM = 4.8-19.5 ug/dL, 4-8 PM = 2.5-11.9 ug/dLPerformed By: #### 3016-3, 2143-6 ####[facility] LABCLIA [id number] [place] [address] [place] STATES OF AMERICAEosinophils/100 WBC Auto (Bld) Ordered By: Preston Hernández on 55-51-4830Vovlvdvzsct/100 WBC (Bld)0.5 %[facility] CenterErythrocyte distribution width Auto (RBC) [Ratio]Ordered By: Preston Hernández on 62-73-6236Zlysfbtwmkn distribution width (RBC) [Ratio]16.3 % High11.5-15.0[facility] Medical CenterGlomerular filtration rate [Volume Rate/Area] in Serum, Plasma or Blood by CreatinineOrdered By: Lo Hancock on 70-79-8336Pjvlwzyirm filtration rate [Volume Rate/Area] in Serum, Plasma or Blood by Vuqldggkeg755 mL/min/1.73m???>=60[facility] Comment on above:Estimated Glomerular Filtration Rate (eGFR) [...] (Bld) [Volume fraction]Ordered By: Preston Hernández on 65-08-9765Cgqlwzlxym (Bld) [Volume fraction]35.6 %Low39.0-51.0[facility] CenterHemoglobin [Mass/volume] in BloodOrdered By: Preston Hernández on 90-69-9812Gjjvgfypsp (Bld) [Mass/Vol]11.8 g/dLLow13.0-17.0[facility] CenterLaboratory - Chemistry and Chemistry - challengeOrdered By: Lo Hancock on 11-23-2024 Albumin [Mass/Vol]4.5 g/dL3.9-4.9[facility] CenterALP [Catalytic activity/Vol]55 U/E33-343MltpuglckUniversity Hospitals Portage Medical CenterALT [Catalytic activity/Vol]30 U/Z38-26WushpumktUniversity Hospitals Portage Medical CenterAST [Catalytic activity/Vol]17 U/Q04-86NcseqgodeUniversity Hospitals Portage Medical CenterBilirubin [Mass/Vol]0.3 mg/dL0.2-1.3FDayton Osteopathic HospitalCalcium [Mass/Vol]8.9 mg/dL 8.5-10.2FDayton Osteopathic HospitalChloride [Moles/Vol]102 mmol/L98-107 [facility] CenterCO2 [Moles/Vol]27 mmol/O36-64ItwrkaosvUniversity Hospitals Portage Medical CenterCreatinine [Mass/Vol]0.67 mg/dLLow0.73-1.22[facility] CenterGlucose [Mass/Vol]125 mg/rZAgbq87-85GnbkvmksuUniversity Hospitals Portage Medical CenterComment on above:The [place] Diabetes Association (ADA) provides guidance for cutoff [...] diabetes.Reference: Standardsof Medical Care in Diabetes 2016, [place] Diabetes [employer]. Diabetes Care. 2016.39(Suppl 1).Potassium [Moles/Vol]4.1 mmol/L 3.7-5.1FSelect Medical TriHealth Rehabilitation Hospitalodium [Moles/Vol]140 mmol/D549-343 [facility] CenterUrea nitrogen [Mass/Vol]17 mg/dL9-24[facility] CenterTSH Qn0.129 m[IU]/LLow0.270-4.200[facility] CenterLaboratory - Hematology and Cell countsOrdered By: Preston Hernández on 32-85-9560Zfesceszdxa (Bld) [#/Vol]0.05 10*3/uL<0.46[facility] CenterImmature granulocytes (Bld) [#/Vol]0.14 10*3/uLHigh<0.10[facility] CenterImselect specialty hospital granulocytes/100 WBC (Bld)1.3 %[facility] Medical CenterLeukocytes [#/volume] corrected for nucleated erythrocytes in Blood by Automated counOrdered By: Preston Hernández on 87-25-3734OEQ corrected for nucl RBC Auto (Bld) [#/Vol]11.07 k/uLHigh3.70-11.00[facility] Medical CenterLymphocytes Auto (Bld) [#/Vol]Ordered By: Preston Hernández on 11-23-2024 Lymphocytes (Bld) [#/Vol]0.96 10*3/uLLow1.00-4.00[facility] Medical CenterLymphocytes/100 WBC Auto (Bld)Ordered By: Preston Hernández on 11-23-2024 Lymphocytes/100 WBC (Bld)8.7 %[facility] Medical CenterH Auto (RBC) [Entitic mass]Ordered By: Preston Hernández on 11-19-8360ECV (RBC) [Entitic mass]29.4 pg26.0-34.0[facility] Medical CenterMCHC Auto (RBC) [Mass/Vol]Ordered By: Preston Hernández on 77-31-4813AALX (RBC) [Mass/Vol]33.1 g/dL30.5-36.0[facility] CenterMCV Auto (RBC) [Entitic vol]Ordered By: Preston Hernández on 75-31-1839PXT (RBC) [Entitic vol]88.8 fL80.0-100.0[facility] CenterMonocytes Auto (Bld) [#/Vol]Ordered By: Preston Hernández on 97-36-2456Xrccjfjve (Bld) [#/Vol]0.66 10*3/uL<0.87[facility] CenterMonocytes/100 WBC Auto (Bld)Ordered By: Preston Hernández on 13-44-6160Smhijqmjd/100 WBC (Bld)6.0 % [facility] Medical CenterNeutrophils Auto (Bld) [#/Vol]Ordered By: Preston Hernández on 59-90-8890Bfswijxxmak (Bld) [#/Vol]9.23 10*3/uLHigh1.45-7.50 [facility] CenterNeutrophils/100 WBC Auto (Bld)Ordered By: Preston Hernández on 38-07-1011Rdhiyzyuwwt/100 WBC (Bld)83.2 %[facility] CenterNucleated RBC Auto (Bld) [#/Vol]Ordered By: Preston Hernández on 77-73-2515Fzzkmdbsf RBC (Bld) [#/Vol]10*3/uL<0.01[facility] CenterNucleated erythrocytes [Presence] in Blood by Automated countOrdered By: Preston Hernández on 10-01-2919Zhjlgwtlm RBC Auto Ql (Bld)0.0 /100{WBC}[facility] Medical CenterPlatelet mean volume Auto (Bld) [Entitic vol]Ordered By: Preston Hernández on 62-09-5444Tasnjkdw mean volume (Bld) [Entitic vol]9.6 fL9.0-12.7 [facility] CenterPlatelets Auto (Bld) [#/Vol]Ordered By: Preston Hernández on 60-00-9201Kxvljsshu (Bld) [#/Vol]284 10*3/tE097-148XymtzphbcUniversity Hospitals Portage Medical CenterProtein [Mass/volume] in Serum or PlasmaOrdered By: Lo Hancock on 96-79-9313Pcwkaqn [Mass/Vol]6.5 g/dL6.3-8.0[facility] Medical CenterRBC Auto (Bld) [#/Vol]Ordered By: Preston Hernández on 36-18-7154LEW (Bld) [#/Vol]4.01 10*6/uLLow4.20-6.00Kettering Health Daytonerum or plasma anion gap determinationOrdered By: Lo Hancock on 61-34-2215Fpjsw gap [Moles/Vol]11 mmol/L8-15[facility] CenterTS SerPl-aCncon 95-10-0876OSC Qn0.129 m[IU]/LLow0.270-4.200[facility] CenterComment on above:Order Comment: Specimen Type: BLOOD SPECIMENOrdering Facility: [facility] Address:[address] [place], [place] [address]Performed By: #### 3016-3, 2143-6 ####[facility] LABCLIA [id number] [place] [address] [place] OF AMERICAMR HIP RIGHT WO IV CONTRASTon 03-38-7926VK HIP RIGHT WO IV CONTRASTEXAMINATION/TECHNIQUE: MR HIP RIGHT WO IV CONTRAST History: Chronic right hip pain. Trochanteric bursitis. Comparison: MRI 08/09/2023. RESULT: RIGHT HIP JOINT: No distinct measurable full-thickness chondral defect. Probable areas of partial-thickness chondral loss. Degenerative signal in the labrum. No evidence for fracture. No joint effusion. LEFT HIP JOINT: Large jjxcv-ie-bfry with degenerative changes. SI JOINTS: Unremarkable. PUBIC [...] trochanteric bursitis. ELECTRONICALLY SIGNED BY: Clifton Garcia MDNormalNot AvailableCNOVon 11-16-2024 CNOVNormalCSelect Medical OhioHealth Rehabilitation Hospital - DublinvelandBasophils Auto (Bld) [#/Vol]Ordered By: Lo Hancock on 53-14-6042Smpnwmiqb (Bld) [#/Vol]0.04 10*3/uL<0.11[facility] CenterBasophils/100 WBC Auto (Bld)Ordered By: Lo Hancock on 67-06-1671Siqsajmje/100 WBC (Bld)0.2 %[facility] CenterBlood manual differential comment interpretation narrativeOrdered By: Lo Hancock on 78-55-3010Grrrzl differential comment Jean (Bld) [Interp]AutoUniversity Hospitals Portage Medical CenterCB W Auto Differential panel (Bld)on 34-29-5247Bxctzcwph (Bld) [#/Vol]0.04 10*3/uLNINFOhio Valley HospitalBasophils/100 WBC (Bld)0.2 % [facility] HospitalDifferential cell count method Nom (Bld)AutoCAvita Health System Galion Hospital Eosinophils (Bld) [#/Vol]NINFClevelCleveland Clinic Lutheran HospitalEosinophils/100 WBC (Bld)0.0 % [facility] HospitalErythrocyte distribution width (RBC) [Ratio]14.9 %11.5 - 15.0 % [facility] HospitalHematocrit (Bld) [Volume fraction]36.8 %Low39.0 - 51.0 % [facility] HospitalHemoglobin (Bld) [Mass/Vol]12.4 g/dLLow13.0 - 17.0 g/dLOhio Valley HospitalImmature granulocytes (Bld) [#/Vol]0.32 10*3/uLHighNIProMedica Fostoria Community Hospital Immature granulocytes/100 WBC (Bld)1.3 %[facility] HospitalInterpretation and review of laboratory resultsAbnormalClevelatrium health pineville ClinicLymphocytes (Bld) [#/Vol] 1.47 10*3/uLOhio Valley HospitalLymphocytes/100 WBC (Bld)6.0 %[facility]tering Health SpringfieldH (RBC) [Entitic mass]29.4 pg26.0 - 34.0 pgCHolmes County Joel Pomerene Memorial HospitalHC (RBC) [Mass/Vol] 33.7 g/dL30.5 - 36.0 g/dLKettering Health SpringfieldV (RBC) [Entitic vol]87.2 fL80.0 - 100.0 fLCAvita Health System Galion HospitalMonocytes (Bld) [#/Vol]0.89 10*3/uLHighNIProMedica Fostoria Community HospitalMonocytes/100 WBC (Bld)3.6 %[facility] HospitalNeutrophils (Bld) [#/Vol]21.70 10*3/uLHighOhio Valley HospitalNeutrophils/100 WBC (Bld)88.9 %[facility] Nucleated RBC (Bld) [#/Vol]NINFCleveland Woodwinds Health CampusNucleated RBC/100 WBC (Bld) [Ratio]0.0 %/100 WBCOhio Valley HospitalPlatelet mean volume (Bld) [Entitic vol]9.7 fL9.0 - 12.7 fLCavita health system ClinicPlatelets (Bld) [#/Vol]296 10*3/uLOhio Valley HospitalRBC (Bld) [#/Vol]4.22 10*6/uL4.20 - 6.00 m/Parkwood HospitalWBC (Bld) [#/Vol]24.43 10*3/uLHighMercy Health Willard Hospital ClinicBasophils (Bld) [#/Vol] 0.04 10*3/uLNormal<0.11CCorey Hospital on above:Order Comment: Specimen Type: BLOOD SPECIMENOrdering Facility: [facility] Address:[address] [place], [place] [address]Performed By: #### 33031-4 ####[facility] HOSPITALMARIBEL [facility] LABCLIA [id number] [place], [place] [address]Gmdmekfey/100 WBC (Bld)0.2 %NormalFairfield Medical Center on above:Order Comment: Specimen Type: BLOOD SPECIMENOrdering Facility: [facility] Address:[address] [place], [place] [address]Performed By: #### 87660-6 ####[facility] LABCLIA [id number] [place], [place] [address]Klflscukqiuy cell count method Nom (Bld)AutoNormalCCorey Hospital on above:Order Comment: Specimen Type: BLOOD SPECIMENOrdering Facility: [facility] Address:[address] [place], [place] [address]Performed By: #### 00014-7 ####[facility] HOSPITALMARIBEL [facility] LABCLIA [id number] [place], [place] [address]Dxgwkclrnqm (Bld) [#/Vol]10*3/uLNormal<0.46[facility] on above:Order Comment: Specimen Type: BLOOD SPECIMENOrdering Facility: [facility] Address:[address] [place], [place] [address]Performed By: #### 50242-8 ####[facility] LABCLIA [id number] [place], [place] [address]Crixfmknaiv/100 WBC (Bld)0.0 %NormalFairfield Medical Center on above:Order Comment: Specimen Type: BLOOD SPECIMENOrdering Facility: [facility] Address:[address] [place], [place] [address]Performed By: #### 47996-4 ####[facility] LABCLIA [id number] [place], [place] [address]Bnbuyhehdoh distribution width (RBC) [Ratio]14.9 %Normal 11.5-15.0[facility] on above:Order Comment: Specimen Type: BLOOD SPECIMENOrdering Facility: [facility] Address:[address] [place], [place] [address]Performed By: #### 67390-7 ####[facility] LABIA [id number] [place] [address] Hematocrit (Bld) [Volume fraction]36.8 %Low39.0-51.0[facility] Comment on above:Order Comment: Specimen Type: BLOOD SPECIMENOrdering Facility: [facility] Address:[address] [place] [address] Performed By: #### 63806-6 ####[facility] LABIA [id number] [place], [place] [address]Lmgigrupyh (Bld) [Mass/Vol]12.4 g/dLLow13.0-17.0[facility] on above:Order Comment: Specimen Type: BLOOD SPECIMENOrdering Facility: [facility] Address:[address] [place], [place] [address]Performed By: #### 73633-5 ####[facility] LABIA [id number] [place], [place] [address]Sackerpl granulocytes (Bld) [#/Vol]0.32 10*3/uLHigh<0.10 [facility] on above:Order Comment: Specimen Type: BLOOD SPECIMENOrdering Facility: [facility] Address:[address] [place], [place] [address]Performed By: #### 41110-6 ####[facility] LABIA [id number] [place], [place] [address]Cppomjlm granulocytes/100 WBC (Bld)1.3 %NormalCleveland Clinic ClevelandComment on above: Order Comment: Specimen Type: BLOOD SPECIMENOrdering Facility: [facility] Address:[address] [place], [place] [address]Performed By: #### 80165- 8 ####[facility] LABCLIA [id number] [place], [place] [address]Rnjghthvdfj (Bld) [#/Vol]1.47 10*3/uLNormal1.00-4.00 [facility] on above:Order Comment: Specimen Type: BLOOD SPECIMENOrdering Facility: [facility] Address:[address] [place], [place] [address]Performed By: #### 69465-2 ####[facility] LABCLIA [id number] [place], [place] [address]Qwtsskgjdit/100 WBC (Bld)6.0 %NormalFairfield Medical Center on above:Order Comment: Specimen Type: BLOOD SPECIMENOrdering Facility: [facility] Address:[address] [place], [place] [address]Performed By: #### 08710-5 ####[facility] LABCLIA [id number] [place], [place] [address]LAB (RBC) [Entitic mass]29.4 usCiyfou16.0-34.0[facility] on above:Order Comment: Specimen Type: BLOOD SPECIMENOrdering Facility: [facility] Address:[address] [place], [place] [address]Performed By: #### 96088-7 ####[facility] LABCLIA [id number] [place], [place] [address]NPZY (RBC) [Mass/Vol]33.7 g/fAHohfcc66.5-36.0[facility] on above: Order Comment: Specimen Type: BLOOD SPECIMENOrdering Facility: [facility] Address:[address] [place], [place] [address]Performed By: #### 59244- 8 ####[facility] LABCLIA [id number] [place], [place] [address]LSR (RBC) [Entitic vol]87.2 jTAxquhn51.0-100.0[facility] on above:Order Comment: Specimen Type: BLOOD SPECIMENOrdering Facility: [facility] Address:[address] [place], [place] [address]Performed By: #### 54990-8 ####[facility] LABCLIA [id number] [place], [place] [address]Jefacilmp (Bld) [#/Vol]0.89 10*3/uLHigh<0.87[facility] on above:Order Comment: Specimen Type: BLOOD SPECIMENOrdering Facility: [facility] Address:[address] [place], [place] [address]Performed By: #### [id number]- 8 ####[facility] LABCLIA [id number] [place], [place] [address]Bxmqbituq/100 WBC (Bld)3.6 %NormalFairfield Medical Center on above:Order Comment: Specimen Type: BLOOD SPECIMENOrdering Facility: [facility] Address:[address] [place], [place] [address]Performed By: #### [id number] ####[facility] LABCLIA [id number] [place], [place] [address]Jresfgfwpgi (Bld) [#/Vol]21.70 10*3/uLHigh1.45-7.50[facility] on above:Order Comment: Specimen Type: BLOOD SPECIMENOrdering Facility: [facility] Address:[address] [place], [place] [address]Performed By: #### [id number] ####[facility] LABCLIA [id number] [place], [place] [address]Dxkmxmpcszu/100 WBC (Bld)88.9 %NormalFairfield Medical Center on above:Order Comment: Specimen Type: BLOOD SPECIMENOrdering Facility: [facility] Address:[address] [place], [place] [address]Performed By: #### 67414-2 ####[facility] LABCLIA [id number] [place], [place] [address]Nxexcvszq RBC (Bld) [#/Vol] 10*3/uLNormal<0.01[facility] on above:Order Comment: Specimen Type: BLOOD SPECIMENOrdering Facility: [facility] Address:[address] [place], [place] [address]Performed By: #### 80399-0 ####[facility] LABCLIA [id number] [place], [place] [address]Qnwoectpp RBC/100 WBC (Bld) [Ratio]0.0 /100 WBCNormal [facility] on above:Order Comment: Specimen Type: BLOOD SPECIMENOrdering Facility: [facility] Address:[address] [place], [place] [address]Performed By: #### 72870-4 ####[facility] LABCLIA [id number] [place], [place] [address]Bglewfyi mean volume (Bld) [Entitic vol]9.7 fLNormal9.0-12.7CCorey Hospital on above:Order Comment: Specimen Type: BLOOD SPECIMENOrdering Facility: [facility] Address:[address] [place] [address] Performed By: #### 91033-3 ####[facility] LABCLIA [id number] [place], [place] [address]Oolsfeauw (Bld) [#/Vol]296 10*3/aHInglnl347-145FkcywddiqFairfield Medical Center on above:Order Comment: Specimen Type: BLOOD SPECIMENOrdering Facility: [facility] Address:[address] [place], [place] [address]Performed By: #### 91785-7 ####[facility] LABCLIA [id number] [place], [place] [address]IBN (Bld) [#/Vol]4.22 10*6/uLNormal4.20-6.00[facility] on above:Order Comment: Specimen Type: BLOOD SPECIMENOrdering Facility: [facility] Address:[address] [place], [place] [address]Performed By: #### 75007-6 ####[facility] LABIA [id number] [place], [place] [address]DIJ (Bld) [#/Vol]24.43 10*3/uLHigh3.70-11.00[facility] on above: Order Comment: Specimen Type: BLOOD SPECIMENOrdering Facility: [facility] Address:[address] [place], [place] [address]Performed By: #### 05687- 8 ####[facility] LABIA [id number] [place], [place] [address]KPSIJVna 38-09-9720ASPPOEBhmcxjYmepjhrnp Clinic [place] CNPNon 42-21-5472GKESFnqucuMsxftoigk Clinic ClevelandCORTISOL, SERUMon 72-08-5479Hyghdhhr [Mass/Vol]2.2 ug/dLLow4.8 - 19.5 ug/dLNorwalk Memorial Hospital on above:Provided reference range is from 6-10 AM sample collection time. Cortisol Reference Range: 6-10 AM = 4.8-19.5 ug/dL, 4-8 PM = 2.5-11.9 ug/dL Comprehensive metabolic 2000 panelon 28-66-4350Gjkyqri [Mass/Vol]4.3 g/dL3.9 - 4.9 g/dLPiermont ClinicALP [Catalytic activity/Vol]63 U/L38 - 113 U/LCleveland ClinicALT [Catalytic activity/Vol]35 U/L10 - 54 U/LCleveland ClinicAnion gap [Moles/Vol]13 mmol/L8 - 15 mmol/LCleveland ClinicAST [Catalytic activity/Vol]26 U/L14 - 40 U/LCleveland ClinicBilirubin [Mass/Vol]0.2 mg/dL0.2 - 1.3 mg/dL Piermont ClinicCalcium [Mass/Vol]9.3 mg/dL8.5 - 10.2 mg/dLOhio Valley Hospital Chloride [Moles/Vol]102 mmol/L98 - 107 mmol/LCleveland ClinicCO2 [Moles/Vol]27 mmol/L22 - 30 mmol/LCleveland ClinicCreatinine [Mass/Vol]0.76 mg/dL0.73 - 1.22 mg/dLPiermont ClinicGFR/1.73 sq M.predicted among non-blacks MDRD (S/P/Bld) [...] eGFRmay not accurately reflect actual GFR.Glucose [Mass/Vol]139 mg/pHMbpl25 - 99 mg/dLOhio Valley HospitalComment on above:The [place] Diabetes Association (ADA) provides guidance for cutoff [...] Standards of Medical Care in Diabetes 2016, [place] Diabetes Association. Diabetes Care. 2016.39(Suppl 1). Interpretation and review of laboratory resultsAbnormalCleveland ClinicPotassium [Moles/Vol]4.3 mmol/L3.7 - 5.1 mmol/LCleveland ClinicProtein [Mass/Vol]6.9 g/dL 6.3 - 8.0 g/dLPiermont ClinicSodium [Moles/Vol]142 mmol/L136 - 144 mmol/L [facility] nitrogen [Mass/Vol]16 mg/dL9 - 24 mg/dLLima Memorial Hospitalbumin [Mass/Vol]4.3 g/dLNormal3.9-4.9CCorey Hospital on above:Order Comment: Specimen Type: BLOOD SPECIMENOrdering Facility: [facility] Address:[address] [place], [place] [address]Performed By: #### 96521-3 ####[facility] LABCLIA [id number] [place] [address] [place] ALP [Catalytic activity/Vol]63 U/PEdrebo78-888NvwctxztfFairfield Medical Center on above:Order Comment: Specimen Type: BLOOD SPECIMENOrdering Facility: [facility] Address:[address] [place] [address] Performed By: #### 69173-1 ####[facility] LABCLIA [id number] [place] [address] [place] ALT [Catalytic activity/Vol]35 U/CVijmzs61-02VlqopumdwFairfield Medical Center on above:Order Comment: Specimen Type: BLOOD SPECIMENOrdering Facility: [facility] Address:[address] [place] [address] Performed By: #### 86855-1 ####[facility] LABCLIA [id number] [place] [address] [place] Anion gap [Moles/Vol]13 mmol/LNormal8-15[facility] on above:Order Comment: Specimen Type: BLOOD SPECIMENOrdering Facility: [facility] Address:[address] [place], [place] [address]Performed By: #### 85060-6 ####[facility] LABCLIA [id number] [place] [address] [place] AMERICAAST [Catalytic activity/Vol]26 U/OMpltfu49-35CqclikdpnFairfield Medical Center on above:Order Comment: Specimen Type: BLOOD SPECIMENOrdering Facility: [facility] Address:[address] [place], [place] [address]Performed By: #### 10658- 8 ####[facility] LABCLIA [id number] [place] [id number] [place] AMERICABilirubin [Mass/Vol]0.2 mg/dL Normal0.2-1.3ClevelUNC Health NashComment on above:Order Comment: Specimen Type: BLOOD SPECIMENOrdering Facility: [facility] Address:[address] [place], [place] [address]Performed By: #### 44419-9 ####[facility] LABCLIA [id number] [place] [address] [place] AMERICACalcium [Mass/Vol]9.3 mg/dLNormal8.5-10.2ClevelUNC Health NashComhenry ford kings[facility] on above:Order Comment: Specimen Type: BLOOD SPECIMENOrdering Facility: [facility] Address:[address] [place], [place] [address]Performed By: #### 77046-8 ####[facility] LABIA [id number] [place] [address] [place] AMERICAChloride [Moles/Vol]102 mmol/PCxdifg66-535PpaglehpmFirelands Regional Medical Center Comment on above:Order Comment: Specimen Type: BLOOD SPECIMENOrdering Facility: [facility] Address:[address] [place] [address] Performed By: #### 30787-4 ####[facility] LABCLIA [id number] [address] [address] [place] CO2 [Moles/Vol]27 mmol/QOkyqax36-52IqltzgthbFirelands Regional Medical CenterComhenry ford kingswood hospital on above: Order Comment: Specimen Type: BLOOD SPECIMENOrdering Facility: [facility] Address:[address] [place], [place] [address]Performed By: #### 75595- 8 ####[facility] LABCLIA [id number] [address] [address] [place] AMERICACreatinine [Mass/Vol]0.76 mg/dL Normal0.73-1.22[facility] on above:Order Comment: Specimen Type: BLOOD SPECIMENOrdering Facility: [facility] Address:[address] [place], [place] [address]Performed By: #### 55431-6 ####[facility] LABIA [id number] [place] [address] [place] AMERICAeGFRcr SerPlBld CKD-EPI 169156 mL/min/1.73m???Normal>=60[facility] on above:Order Comment: Specimen Type: BLOOD SPECIMENOrdering Facility: [facility] Address:[address] [place], [place] [address]Result Comment: Estimated Glomerular Filtration Rate (eGFR) is [...] not accurately reflect actual GFR.Performed By: #### 01319-0 ####[facility] LABIA [id number] [place] [address] [place] AMERICAGlucose [Mass/Vol]139 mg/dLHigh 74-99[facility] on above:Order Comment: Specimen Type: BLOOD SPECIMENOrdering Facility: [facility] Address:[address] [place], [place] [address]Result Comment: The [place] Diabetes Association (ADA) provides guidance for cutoff [...] Standards of Medical Care in Diabetes 2016, [place] Diabetes Association. Diabetes Care. 2016.39(Suppl 1).Performed By: #### 22340-1 ####[facility] LABCLIA [id number] [place] [address] [place] AMERICAPotassium [Moles/Vol]4.3 mmol/L Normal3.7-5.1CCorey Hospital on above:Order Comment: Specimen Type: BLOOD SPECIMENOrdering Facility: [facility] Address:[address] [place], [place] [address]Performed By: #### 11701-3 ####[facility] LABIA [id number] [address] STATES OF AMERICAProtein [Mass/Vol]6.9 g/dLNormal6.3-8.0[facility] on above:Order Comment: Specimen Type: BLOOD SPECIMENOrdering Facility: [facility] Address:[address] [place], [place] [address]Performed By: #### 44237-1 ####[facility] LABIA [id number] [place] [address] [place] Sodium [Moles/Vol]142 mmol/QWrcdki095-628DfkfwydjwFairfield Medical Center on above:Order Comment: Specimen Type: BLOOD SPECIMENOrdering Facility: [facility] Address:[address] [place], [place] [address]Performed By: #### 90710-0 ####[facility] LABIA [id number] [place] [address] [place] AMERICAUrea nitrogen [Mass/Vol]16 mg/dLNormal9-24[facility] on above:Order Comment: Specimen Type: BLOOD SPECIMENOrdering Facility: [facility] Address:[address] [place], [place] [address]Performed By: #### 93843- 8 ####[facility] LABCLIA [id number] [place] [id number] [place] STATES OF AMERICACortis SerPl-mCncon 11-09-2024 Cortisol [Mass/Vol]2.2 ug/dLLow4.8-19.5CCorey Hospital on above:Order Comment: Specimen Type: BLOOD SPECIMENOrdering Facility: [facility] Address:[address] [place], [place] [address]Result Comment: Provided reference range is from 6-10 AM sample collection time.Cortisol Reference Range: 6-10 AM = 4.8-19.5 ug/dL, 4-8 PM = 2.5-11.9 ug/dLPerformed By: #### 3016-3, 2143-6 ####[facility] LABCLIA [id number] [place] [id number] [facility] HOSPITALCortisol [Mass/Vol]on 91-23-5422Byzcwydngjptvq and review of laboratory resultsAbnormal [facility] HospitalEosinophils/100 WBC Auto (Bld)Ordered By: Lo Hancock on 98-97-1675Ooxgumdzlmm/100 WBC (Bld)0.0 %[facility] Erythrocyte distribution width Auto (RBC) [Ratio]Ordered By: Lo Hancock on 84-80-1152Wdayiwekvai distribution width (RBC) [Ratio]14.9 %11.5-15.0[facility] Medical CenterGLUCOSE, BLOOD (POC)on 50-46-7929Hpfxozq [Mass/Vol]137 mg/mLPhdjhlja75 - 99 mg/dLNorwalk Memorial Hospital on above:Location:[facility], [address] [place] [address] , [place], [place], [address] The Accu-Chek Inform II glucose meter has [...] above situations. Interpretation and review of laboratory resultsAbnormalCAdena Pike Medical CenterGlomerular filtration rate [Volume Rate/Area] in Serum, Plasma or Blood by CreatinineOrdered By: Lo Hancock on 03-49-3065Nudttapgyj filtration rate [Volume Rate/Area] in Serum, Plasma or Blood by Pthxudkrjj05 mL/min/1.73m???>=60 [facility] CenterComment on above:Estimated Glomerular Filtration Rate (eGFR) is [...] Estimated from glycated hemoglobin (Bld) [Mass/Vol]123 mg/dL [facility] Medical CenterComment on above:eAG: (Estimated average glucose) is a calculated value from HgbA1c and is assisted sales representative of the average blood glucose level in the last 2-3 month period.HbA1c (Bld)on 33-08-4876Owvtlpk glucose Estimated from glycated hemoglobin (Bld) [Mass/Vol]123 mg/dLNorwalk Memorial Hospital on above:eAG: (Estimated average glucose) is a calculated value from HgbA1c and is assisted sales representative of the average blood glucose level in the last 2-3 month period.HbA1c (Bld) [Mass fraction]5.9 %High4.3 - 5.6 %[facility] on above:[place] Diabetes Association guidelines indicate that patients with HgbA1c in the range 5.7-6.4% are at increased risk for development of diabetes, and intervention by lifestyle modification may be beneficial. HgbA1c greater or equal to 6.5% is considered diagnostic of diabetes. Interpretation and review of laboratory resultsAbnormalCSelect Medical Specialty [facility] glucose Estimated from glycated hemoglobin (Bld) [Mass/Vol]123 mg/dLNormalCCorey Hospital on above:Order Comment: Specimen Type: BLOOD SPECIMENOrdering Facility: [facility] Address:[address] [place], [place] [address]Result Comment: eAG: (Estimated average glucose) is a calculated value from HgbA1c and is assisted sales representative of the average blood glucose level in the last 2-3 month period.Performed By: #### 73022-1 ####[facility] LABCLIA [id number] [address] STATES OF CIRIOQCKsU8k (Bld) [Mass fraction]5.9 % High4.3-5.6CCorey Hospital on above:Order Comment: Specimen Type: BLOOD SPECIMENOrdering Facility: [facility] Address:[address] [place], [place] [address]Result Comment: [place] Diabetes Association guidelines indicate that patients with HgbA1c in the range 5.7-6.4% are at increased risk for development of diabetes, and intervention by lifestyle modif ication may be beneficial. HgbA1c greater or equal to 6.5% is considered diagnostic of diabetes.Performed By: #### 56197-6 ####[facility] LABCLIA [id number] [place] [address] [place] AMERICAHematocrit Auto (Bld) [Volume fraction]Ordered By: Lo Hancock on 42-28-8616Yfmghwkrig (Bld) [Volume fraction]36.8 %Low39.0-51.0 [facility] CenterHemoglobin A1c percentageOrdered By: Lo Hancock on 05-83-7910SqM5o (Bld) [Mass fraction]5.9 %High4.3-5.6FDayton Osteopathic HospitalComment on above:[place] Diabetes Association guidelines indicate that patients with HgbA1c in the range 5.7-6.4% are at increased risk for development of diabetes, and intervention by lifestyle modification may be b eneficial. HgbA1c greater or equal to 6.5% is considered diagnostic of diabetes. Hemoglobin [Mass/volume] in BloodOrdered By: Lo Hancock on 11-09-2024 Hemoglobin (Bld) [Mass/Vol]12.4 g/dLLow13.0-17.0[facility] CenterLaboratory - Chemistry and Chemistry - challengeOrdered By: Lo Hancock on 74-46-9898Wwtvxav [Mass/Vol]4.3 g/dL3.9-4.9[facility] CenterALP [Catalytic activity/Vol]63 U/U24-297XtckwsfjmUniversity Hospitals Portage Medical CenterALT [Catalytic activity/Vol]35 U/E31-51KgrcxtaiaUniversity Hospitals Portage Medical Center AST [Catalytic activity/Vol]26 U/U01-34WspbhttucUniversity Hospitals [facility]age [facility] Center Bilirubin [Mass/Vol]0.2 mg/dL0.2-1.3FDayton Osteopathic HospitalCalcium [Mass/Vol]9.3 mg/dL8.5-10.2FDayton Osteopathic HospitalChloride [Moles/Vol] 102 mmol/J50-845BxrexziwwUniversity Hospitals Portage Medical CenterCO2 [Moles/Vol]27 mmol/L22-30 [facility] CenterCreatinine [Mass/Vol]0.76 mg/dL0.73-1.22 [facility] CenterGlucose [Mass/Vol]139 mg/pDKvqx12-55SxkwhpngdUniversity Hospitals Portage Medical CenterComment on above:The [place] Diabetes Association (ADA) provides guidance for cutoff [...] diabetes.Reference: Standardsof Medical Care in Diabetes 2016, [place] Diabetes Association. Diabetes Care. 2016.39(Suppl 1).Potassium [Moles/Vol]4.3 mmol/L 3.7-5.1FSelect Medical TriHealth Rehabilitation Hospitalodium [Moles/Vol]142 mmol/I183-327 [facility] CenterTSH Qn0.362 m[IU]/L0.270-4.200[facility] Medical CenterUrea nitrogen [Mass/Vol]16 mg/dL9-24[facility] CenterLaboratory - Hematology and Cell countsOrdered By: Lo Hancock on 16-17-3191Mqsbokqvmkp (Bld) [#/Vol]10*3/uL<0.46[facility] Medical CenterImmature granulocytes (Bld) [#/Vol]0.32 10*3/uLHigh<0.10[facility] Medical CenterImnmture granulocytes/100 WBC (Bld)1.3 %[facility] Medical CenterLeukocytes [#/volume] corrected for nucleated erythrocytes in Blood by Automated counOrdered By: Lo Hancock on 83-69-6526PPE corrected for nucl RBC Auto (Bld) [#/Vol]24.43 k/uLHigh3.70-11.00[facility] Medical CenterLymphocytes Auto (Bld) [#/Vol]Ordered By: Lo Hancock on 31-78-0828Mcjybuffucq (Bld) [#/Vol]1.47 10*3/uL1.00-4.00[facility] CenterLymphocytes/100 WBC Auto (Bld)Ordered By: Lo Hancock on 72-34-4230Aenfbtsakqv/100 WBC (Bld)6.0 %[facility] Medical CenterMCH Auto (RBC) [Entitic mass]Ordered By: Lo Hancock on 94-16-1856NZN (RBC) [Entitic mass]29.4 pg26.0-34.0[facility] Medical CenterMCHC Auto (RBC) [Mass/Vol]Ordered By: Lo Hancock on 88-91-4091SNEE (RBC) [Mass/Vol]33.7 g/dL30.5-36.0[facility] CenterMCV Auto (RBC) [Entitic vol] Ordered By: Lo Hancock on 47-54-9842YLU (RBC) [Entitic vol]87.2 fL 80.0-100.0[facility] CenterMonocytes Auto (Bld) [#/Vol]Ordered By: Lo Hancock on 59-31-1407Lelfgfswl (Bld) [#/Vol]0.89 10*3/uLHigh<0.87 [facility] CenterMonocytes/100 WBC Auto (Bld)Ordered By: Lo Hancock on 61-00-1104Wgnxsxrvi/100 WBC (Bld)3.6 %[facility] CenterNM PET/CT SKULL-THIGH SUBQon 40-28-5319UC PET/CT SKULL-THIGH SUBQNormal [facility] ClevelandNeutrophils Auto (Bld) [#/Vol]Ordered By: Lo Hancock on 93-70-8792Knpskrilbdh (Bld) [#/Vol]21.70 10*3/uLHigh1.45-7.50 [facility] CenterNeutrophils/100 WBC Auto (Bld)Ordered By: Lo Hancock on 67-88-3718Hjofhnfturq/100 WBC (Bld)88.9 %[facility] CenterNo Panel Informationon 06-91-3337Boeeqjznd ClinicNucleated RBC Auto (Bld) [#/Vol]Ordered By: Lo Hancock on 87-83-0037Pnjsyxduy RBC (Bld) [#/Vol]10*3/uL<0.01[facility] CenterNucleated erythrocytes [Presence] in Blood by Automated countOrdered By: Lo Hancock on 11-09-2024 Nucleated RBC Auto Ql (Bld)0.0 /100{WBC}[facility] CenterPET+CT Guidance for localization of tumor of Skull [...] * Uptake Time: 61 minutes * Radiopharmaceutical: D18-Rlpgmafmttzaxaicjf (FDG) COMPARISON: 08/03/2024 CORRELATION: 07/29/2024 OS neck [...] any questions regarding this interpretation, please call [phone]. If you are unable to reach us at the number above, please feel free to contact [facility] at [phone].DIVISION OF RADIOLOGYProvider, [facility] [place] - 11/09/2024 * * *Final Report* * [...] * Uptake Time: 61 minutes * Radiopharmaceutical: K91-Dkcpanvkybursvpspn (FDG) COMPARISON: 08/03/2024 CORRELATION: 07/29/2024 [facility] neck CTA report RESULT: REFERENCES: FDG [...] any questions regarding this interpretation, please call [phone]. If you are unable to reach us at the number above, please feel free to contact [facility] at [phone]. [facility] HospitalRadiology Study observation (narrative)[facility] HospitalPE+CT Guidance for localization of tumor of Skull base to mid-thigh-- W 18F-FDG IV Ordered By: Ccf Provider on 43-17-2241Vdqmxvxcy ClinicPlatelet mean volume Auto (Bld) [Entitic vol]Ordered By: Lo Hancock on 56-70-0741Wusrvoel mean volume (Bld) [Entitic vol]9.7 fL9.0-12.7FDayton Osteopathic HospitalPlatelets Auto (Bld) [#/Vol]Ordered By: Lo Hancock on 60-30-8375Eaotlboiu (Bld) [#/Vol]296 10*3/rX828-453QzzsfwrvwUniversity Hospitals Portage Medical CenterProtein [Mass/volume] in Serum or PlasmaOrdered By: Lo Hancock on 20-43-7671Mfzyrdp [Mass/Vol]6.9 g/dL 6.3-8.0[facility] Medical CenterRBC Auto (Bld) [#/Vol]Ordered By: Lo Hancock on 60-02-0443INX (Bld) [#/Vol]4.22 10*6/uL4.20-6.00Kettering Health Daytonerum or plasma anion gap determinationOrdered By: Lo Hancock on 18-49-5865Iyzhm gap [Moles/Vol]13 mmol/L8-15[facility] Medical CenterTHYROID STIMULATING HORMONEon 77-88-4717UCJ Qn0.362 m[IU]/LCleveland [facility] Qnon 12-30-1395Mpcpgvwadgfxbo and review of laboratory resultsNormal [facility] SerPl-aCncon 32-49-8309XPB Qn0.362 m[IU]/LNormal0.270-4.200 [facility] on above:Order Comment: Specimen Type: BLOOD SPECIMENOrdering Facility: [facility] Address:[address] [place], [place] [address]Performed By: #### 3016-3, 2143-6 ####[facility] LABCLIA [id number] [place] [address] [place] AMERICACNPNon 01-41-3107JBFQKvrqllBxjljzbnq Clinic ClevelandCNPNon 00-12-6103EJQTFtfdixSszxzjpuk Clinic ClevelandCNPNon 80-15-7017MXPBGcndce [facility] CenterECH echo transthoracicon 11-15-2615I[place] [address] Echocardiogram Signed Patient: Erin Pena MR#: [id number] 8 : 1955 Acct:[id number] Age/Sex: 68 / M ADM Date: 10/27/24 Loc: Room: [address] [place] [address] Type: ADM IN Attending Dr: Clarence Stevens [...] Measurements from QLAB CI (): ED Mass (): LAEF (): 66.0 % BSA (): 1.9 m2 176.0 grams 2.9 l/min/m2 __ BRIAN (): LAVmax (): LAVmin (): 27.0 mlPat Height (): 42.0 ml/m2 80.0 [...] ()_phl: 30.0 % (more content not included)...NormalThe [facility] Physician GroupBNP ser/plasOrdered By: Wendy Ochoa on 03-03-1604Hnoqyeapgqj peptide B (Bld) [Mass/Vol]18.0 pg/mL Normal5-100[facility] Medical CenterComment on above:Result Comment: PERFORMED BY: [facility] [address] [place] [address] PATHOLOGIST SHAVING MACHINE OPERATOR GUADALUPE FREITAS M.D.Performed By: #### BNP, CBC, BMP, HS TROP #### [place] [address] USABasic Metabolic Panelon 34-73-2682Witnapaeyq Clr Calc Feecairl45.70NormalThe [facility] Hospital Physician GroupComment on above:Result Comment: PERFORMED BY: [place] [address] PATHOLOGIST SHAVING MACHINE OPERATOR GUADALUPE FREITAS M.D.Performed By: #### BNP, CBC, BMP, HS TROP #### [place] [address] USAGFR/1.73 sq M.predicted MDRD (S/P/Bld) [Vol rate/Area] mL/min/{1.73_m2}NormalThe [facility] Physician [facility] CentralComment on above:Performed By: #### BNP, CBC, BMP, HS TROP #### [place] [address] USABasophils [#/volume] in Blood by Automated countOrdered By: Wendy Ochoa on 89-77-9403Rznyumoma (Bld) [#/Vol]0.1 10*3/uLNormal0.0-0.2 [facility] Medical CenterComment on above:Result Comment: PERFORMED BY: [place] [address] PATHOLOGIST SHAVING MACHINE OPERATOR GUADALUPE FREITAS M.D.Performed By: #### BNP, CBC, BMP, HS TROP #### [place] [address] USABasophils/100 leukocytes in Blood by Automated count Ordered By: Wendy Ochoa on 54-96-7882Muqmreojs/100 WBC (Bld)0.5 %Normal. [facility] CenterComment on above:Performed By: #### BNP, CBC, BMP, HS TROP #### [place] [address] USABioFire Not Detectedon 78-79-3555KqsZrru Not DetectedNot detectedNormalNot DetecteThe [facility] Physician GroupComment on above:Result Comment: This is a duplicate RP2.1 COVID (PCR) result to be used for statistical tracking purpose only. PERFORMED BY: [place] [address] PATHOLOGIST SHAVING MACHINE OPERATOR GUADALUPE FREITAS M.D.Performed By: #### RESP PANEL UPP., BIOFIRECOVNOTDE #### [place] [address] USACOVID-19 Detected/Not DetectedOrdered By: Wendy Ochoa on 69-04-5010FAIE-CoV-2 (COVID-19) RNA ZEINAB+non-probe Ql (Nph)Not detectedNot DetecteFDayton Osteopathic HospitalComment on above:This is a duplicate RP2.1 COVID (PCR) result to be used for statistical tracking purpose only.CT angio chest PE protocolon 12-36-5489FQ angio chest PE protocolWOOD COUNTY H[facility] Main [place] [address] [place] [address] CT Scan Report Signed Patient: Erin Pena MR#: [id number] 8 : 1955 Acct:[id number] Age/Sex: 68 / M ADM Date: 10/27/24 Loc: ER Room: Type: [facility] ER Attending Dr: Copies to: Wendy [...] Chaudhary M.D. 10/27/2024 4:59 PM Dictation Location: [place] [address] Transcribed By: [facility] 10/27/241658 Dictated By: Mihai Chaudhary II, MD 10/27/241652 Signed By: 10/27/241658[facility] Physician GroupCalcium [Mass/volume] in Serum or PlasmaOrdered By: Wendy Ochoa on [id number] [Mass/Vol]9.4 mg/dL Normal8.6-10.3FDayton Osteopathic HospitalComment on above:Performed By: #### BNP, CBC, BMP, HS TROP #### [facility] [address] [place] [address] USACarbon dioxide, total [Moles/volume] in Serum or Plasma Ordered By: Wendy Ochoa on 76-37-0830RS9 [Moles/Vol]30.8 mmol/LNormal 21.0-31.0[facility] Portage Medical CenterComment on above:Performed By: #### BNP, CBC, BMP, HS TROP #### [facility] [address] [place] [address] USAChloride [Moles/volume] in Serum or PlasmaOrdered By: Wendy Ochoa on 88-71-7907Gmpwaczt [Moles/Vol]102 mmol/TQuhsss66-230FevyrckapUniversity Hospitals Portage Medical CenterComment on above:Performed By: #### BNP, CBC, BMP, HS TROP #### [facility] [address] [place] [address] USAComplete Blood Count Auto Diffon 82-00-0757Iniq Corpuscular HGB Conc34.6 g/rNVfjzyl78.5-35.6[facility] Physician GroupComment on above:Performed By: #### BNP, CBC, BMP, HS TROP #### [facility] [address] [place] [address] USAMonocytes/100 WBC (Bld)17.23 %Normal0.00-20.00[facility] Physician [facility] CentralComment on above:Performed By: #### BNP, CBC, BMP, HS TROP #### [facility] [address] [place] [address] USANRBC%0.2 /100{WBC}Normal0-0.5[facility] Comment on above:Performed By: #### BNP, CBC, BMP, HS TROP #### [facility] [address] [place] [address] USAWhite Blood Count9.8 [CFU]/mLNormal4.1-10.5[facility] Physician [facility] Health CentralComment on above:Performed By: #### BNP, CBC, BMP, HS TROP #### [facility] [address] [place] [address] USACreatinine [Mass/volume] in Serum or PlasmaOrdered By: Wendy Ochoa on 30-98-0250Vsdszwxsux [Mass/Vol]0.77 mg/dLNormal0.70-1.30 [facility] Portage Medical CenterComment on above:Performed By: #### BNP, CBC, BMP, HS TROP #### [facility] [address] [place] [address] USAECG 12 lead ECGon 17-88-4291JRP 12 [facility]WO[facility] [place] [address] [place] [address] Electrocardiograph Report Signed Patient: Erin Pena MR#: [id number] 8 : 1955 Acct:[id number] Age/Sex: 68 / M ADM Date: 10/27/24 Loc: ER Room: Type: [facility] ER Attending Dr: Ordering Provider: Wendy [...] Rightward axis Confirmed by Wendy Ochoa MD ([id number]) on 10/27/2024 5:40:37 PM Referred By: Electronically Signed By: Wendy Ochoa MD Transcribed By: MUS Signed By Wendy Ochoa MD 10/06 05/[address] [place] [address] Physician GroupEosinophils [#/volume] in Blood by Automated countOrdered By: Wendy Ochoa on 76-48-2948Owjegtzysdu (Bld) [#/Vol] 1.1 10*3/uLHigh0.0-0.45University Hospitals Portage Medical CenterComment on above: Performed By: #### BNP, CBC, BMP, HS TROP #### [facility] [address] [place] [id number] USAEosinophils/100 leukocytes in Blood by Automated count Ordered By: Wendy Ochoa on 55-29-1294Oxtarbghflu/100 WBC (Bld)11.7 %Normal. [facility] Portage Medical CenterComment on above:Performed By: #### BNP, CBC, BMP, HS TROP #### [facility] [address] [place] [id number] USAErythrocyte distribution width [Ratio] by Automated count Ordered By: Wendy Ochoa on 39-66-9846Gjijkddtnri distribution width (RBC) [Ratio]14.9 %High12.0-14.8[facility] Portage Medical CenterComment on above: Performed By: #### BNP, CBC, BMP, HS TROP #### [facility] [address] [place] [address] USAErythrocytes [#/volume] in Blood by Automated countOrdered By: Wendy Ochoa on 31-92-3961PUP (Bld) [#/Vol]4.67 10*6/uLNormal3.90-5.60 [facility] Port[facility] Medical CenterComment on above:Performed By: #### BNP, CBC, BMP, HS TROP #### [facility] [address] [place] [address] USAGlomerular filtration rate [Volume Rate/Area] in Serum, Plasma or Blood by CreatinineOrdered By: Wendy Ochoa on 16-23-6032Owylzypuam filtration rate [Volume Rate/Area] in Serum, Plasma or Blood by Creatinine> 60.0 mL/MinUniversity Hospitals Portage Medical CenterGlucose [Mass/volume] in Serum or Plasma Ordered By: Wendy Ochoa on 60-95-6575Kmhrvps [Mass/Vol]191 mg/tIUgel96-569 [facility] Portage Medical CenterComment on above:ADA recommended reference rangeRandom Glucose Reference [...] #### BNP, CBC, BMP, HS TROP #### [facility] [address] [place] [address] USAHematocrit [Volume Fraction] of Blood by Automated count Ordered By: Wendy Ochoa on 05-93-4752Nmdaqfaedu (Bld) [Volume fraction]39.9 % Ipxkpr96.8-50.0[facility] Portage Medical CenterComment on above:Performed By: #### BNP, CBC, BMP, HS TROP #### [facility] [address] [place] [address] USAHemoglobin [Mass/volume] in BloodOrdered By: Wendy Ochoa on 62-38-2208Zqevkvgwsf (Bld) [Mass/Vol]13.8 g/hOQjrsrm77.0-17.0 [facility] Port[facility] Medical CenterComment on above:Performed By: #### BNP, CBC, BMP, HS TROP #### [facility] [address] [place] [address] USALeukocytes [#/volume] corrected for nucleated erythrocytes in Blood by Automated counOrdered By: Wendy Ochoa on 31-99-9238GUM corrected for nucl RBC Auto (Bld) [#/Vol]9.8 10*3/uL4.1-10.5FDayton Osteopathic HospitalLeukocytes [#/volume] in Blood by Automated countOrdered By: Wendy Ochoa on 49-78-9148MWG (Bld) [#/Vol]9.8 10*3/uLNormal4.1-10.5FDayton Osteopathic HospitalComment on above:Performed By: #### BNP, CBC, BMP, HS TROP #### [facility] [address] [place] [address] USALymphocytes [#/volume] in Blood by Automated countOrdered By: Wendy Ochoa on 88-56-3997Wkolzrcuobt (Bld) [#/Vol]1.8 10*3/uLNormal 1.00-4.8[facility] Port[facility] Medical CenterComment on above:Performed By: #### BNP, CBC, BMP, HS TROP #### [place] [id number] USALymphocytes/100 leukocytes in Blood by Automated count Ordered By: Wendy Ochoa on 84-50-0312Morjjmzotbl/100 WBC (Bld)18.3 %Normal. [facility] Portage Medical CenterComment on above:Performed By: #### BNP, CBC, BMP, HS TROP #### [facility] [address] [place], [place] [address] USAMCH [Entitic mass] by Automated countOrdered By: Wendy Ochoa on 96-70-7001OAW (RBC) [Entitic mass]29.5 jjIzxxbc25.5-35.2FDayton Osteopathic HospitalComment on above:Performed By: #### BNP, CBC, BMP, HS TROP #### [address] [place] [address] USAMCHC Auto (RBC) [Mass/Vol]Ordered By: Wendy Ochoa on 08-67-6450LKOC (RBC) [Mass/Vol]34.6 g/dL32.5-35.6FDayton Osteopathic HospitalMCV [Entitic volume] by Automated countOrdered By: Wendy Ochoa on 51-92-9154CHM (RBC) [Entitic vol]85.5 bAMzgvpj88.5-101University Hospitals Portage Medical CenterComment on above:Performed By: #### BNP, CBC, BMP, HS TROP #### [facility] [address] [place] [address] USAMonocyte distribution width [Entitic volume] in Blood by AutomatedOrdered By: Wendy Ochoa on 25-55-6254Kxegwesw distribution width Auto (Bld) [Entitic vol]17.23 %0.00-20.00[facility] Monocytes [#/volume] in Blood by Automated countOrdered By: Wendy Ochoa on 01-65-6929Iryyfvudj (Bld) [#/Vol]0.7 10*3/uLNormal0.0-0.8[facility] Medical CenterComment on above:Performed By: #### BNP, CBC, BMP, HS TROP #### [facility] [address] [place] [address] USAMonocytes/100 leukocytes in Blood by Automated count Ordered By: Wendy Ochoa on 35-67-2612Tqtsuznud/100 WBC (Bld)6.8 %Normal. [facility] Port[facility] Medical CenterComment on above:Performed By: #### BNP, CBC, BMP, HS TROP #### [facility] [address] [place] [address] USANeutrophils [#/volume] in Blood by Automated countOrdered By: Wendy Ochoa on 97-35-7358Cycyhhxaqly (Bld) [#/Vol]6.1 10*3/uLNormal 1.8-7.7FDayton Osteopathic HospitalComment on above:Performed By: #### BNP, CBC, BMP, HS TROP #### [facility] [address] [place] [address] USANeutrophils/100 leukocytes in Blood by Automated count Ordered By: Wendy Ochoa on 11-11-8861Cigsqmmcysa/100 WBC (Bld)62.7 %Normal. [facility] Port[facility] Medical CenterComment on above:Performed By: #### BNP, CBC, BMP, HS TROP #### [facility] [address] [place] [address] USANo Panel InformationOrdered By: Wendy Ochoa on 03-02-0889Oqbpuvzk Creatinine Clearance (Chem88.70[facility] Portage Medical CenterNucleated erythrocytes [Presence] in Blood by Automated countOrdered By: Wendy Ochoa on 70-83-8881Taebswjgv RBC Auto Ql (Bld)0.2 /100{WBC}0-0.5 [facility] Medical CenterPlatelet mean volume [Entitic volume] in Blood by Automated countOrdered By: Wendy Ochoa on 42-10-6615Enloxssd mean volume (Bld) [Entitic vol]7.9 fLNormal6.6-10.1FDayton Osteopathic HospitalComment on above:Performed By: #### BNP, CBC, BMP, HS TROP #### [facility] [address] [place] [address] USAPlatelets [#/volume] in Blood by Automated countOrdered By: Wendy Ochoa on 28-53-8751Iaxphrzxe (Bld) [#/Vol]343 10*3/mGHrsntw308-360 [facility] CenterComment on above:Performed By: #### BNP, CBC, BMP, HS TROP #### [facility] [address] [place] [address] USAPotassium [Moles/volume] in Serum or PlasmaOrdered By: Wendy Ochoa on 95-79-0410Qtudkugky [Moles/Vol]3.7 mmol/LNormal3.5-5.1 [facility] CenterComment on above:Performed By: #### BNP, CBC, BMP, HS TROP #### [facility] [address] [place] [id number] USARespiratory (Upper) Panel, PCRon 51-85-8661Afgypqxhvjf (Upper) Panel, PCRAdenovirus Not detected Bordetella parapertussis [...] Influenza A H3 Blank Space PERFORMED BY: [place] [address] PATHOLOGIST SHAVING MACHINE OPERATOR GUADALUPE FREITAS M.D.[facility] Physician GroupComment on above: Performed By: #### RESP PANEL UPP., BIOFIRECOVNOTDE #### [place] [address] USARespiratory pathogens DNA and RNA panel - Nasopharynx by ZEINAB with non-probe detectionOrdered By: Wendy Ochoa on 28-94-6669Gkfpiekwbof pathogens DNA and RNA panel ZEINAB+non-probe (Nph)[facility] Serum or plasma anion gap determinationOrdered By: Wendy Ochoa on 10-27-2024 Anion gap [Moles/Vol]10.9 mmol/LNormal6.0-15.0[facility] Comment on above:Performed By: #### BNP, CBC, BMP, HS TROP #### [facility] [address] [place] [address] USASodium [Moles/volume] in Serum or PlasmaOrdered By: Wendy Ochoa on 33-64-5848Bdfwsk [Moles/Vol]140 mmol/KHkfsni904-765NshpqqpuzUniversity Hospitals Portage Medical CenterComment on above:Performed By: #### BNP, CBC, BMP, HS TROP #### [facility] [address] [place] [address] USATroponin I High Sensitivityon 48-22-5035Aophkcse I High Kvlpmnygolc8Nwbdlx5-44Lfh [facility] Physician GroupComment on above:Result Comment: The Troponin units of report have been changed to meet the Chest Pain Accreditation requirement, element EC5.M1l2. Troponin units are changed from pg/ml to ng/L. Also, the decimal is removed and results are in whole numbers. PERFORMED BY: [place] [address] PATHOLOGIST SHAVING MACHINE OPERATOR GUADALUPE FREITAS M.D.Performed By: #### HS TROP #### [address] [address] USATroponin I High Paziimmhqle4Amnuhi2-28Eli [facility] Physician GroupComment on above:Result Comment: The Troponin units of report have been changed to meet the Chest Pain Accreditation requirement, element EC5.M1l2. Troponin units are changed from pg/ml to ng/L. Also, the decimal is removed and results are in whole numbers. PERFORMED BY: [place] [address] PATHOLOGIST SHAVING MACHINE OPERATOR GUADALUPE FREITAS M.D.Performed By: #### BNP, CBC, BMP, HS TROP #### [address] [address] USATroponin I.cardiac [Mass/volume] in Serum or Plasma by Detection limit <= 0.01 ng/mLOrdered By: Wendy Ochoa on 45-95-2581Dvyuzdwv I.cardiac DL <= 0.01 ng/mL [Mass/Vol]3 ng/L0[facility] Comment on above:The Troponin units of report have been changed to meet the Chest Pain Accreditation requirement, element EC5.M1l2. Troponin units are changed from pg/ml to ng/L. Also, the decimal is removed and results are in whole numbers.Urea nitrogen [Mass/volume] in Serum or PlasmaOrdered By: Wendy Ochoa on 14-70-3642Oqyf nitrogen [Mass/Vol]13 mg/dLNormal7University [facility] Port[facility] Medical CenterComment on above:Performed By: #### BNP, CBC, BMP, HS TROP #### [facility] [address] [place] [id number] USANo Panel InformationOrdered By: Radiologist Radiology on 28-47-3769XT[employer] Work Phone: No Panel Informationon 61-04-0254Ggjjtxgcd Study observation (narrative)[facility]OMS HealthcareXR CHEST 2V FRONTAL/LATon [...] any questions regarding this interpretation, please call [phone]. If you are unable to reach us at the number above, please feel free to contact [facility] at [phone]. [id number]^AGFA_IDC^SI^ACNCCFRadiology, Radiologist, - 10/26/2024 * * *Final Report* [...] any questions regarding this interpretation, please call [phone]. If you are unable to reach us at the number above, please feel free to contact [facility] eRadiology at [phone]. [id number]^AGFA_IDC^SI^ACN [facility]XR CHEST 2V FRONTAL/LATNormalCKeenan Private HospitalXR Chest PA and Lateralon 10-26-2024* * [...] within the thoracic spine. DIVISION OF RADIOLOGYProvider, [facility] [place] - 10/26/2024 * * *Final Report* * [...] any questions regarding this interpretation, please call [phone]. If you are unable to reach us at the number above, please feel free to contact [facility] eRadiology at [phone]. [facility] HospitalCNPNon 01-49-4867QIWFXdwigiPfkmqtwij Clinic ClevelandCBC W Auto Differential panel (Bld)on 10-31-2918Zwloyinmp (Bld) [#/Vol]0.04 10*3/uLNINF [facility] HospitalDifferential cell count method Nom (Bld)AutoCAvita Health [facility] Eosinophils (Bld) [#/Vol]0.81 10*3/uLHighNINFOhio Valley HospitalImmature granulocytes (Bld) [#/Vol]NINFCAvita Health System Galion HospitalImmature granulocytes/100 WBC (Bld)0.3 %[facility] HospitalLymphocytes (Bld) [#/Vol]1.62 10*3/uLOhio Valley Hospital Monocytes (Bld) [#/Vol]0.65 10*3/uLNINFOhio Valley HospitalNeutrophils (Bld) [#/Vol] 4.62 10*3/uLOhio Valley HospitalNucleated RBC (Bld) [#/Vol]NINCommunity Memorial Hospital Nucleated RBC/100 WBC (Bld) [Ratio]0 %/100 WBCOhio Valley HospitalPlatelet mean volume (Bld) [Entitic vol]9.3 fL9.0 - 12.7 fLCleveland ClinicPlatelets (Bld) [#/Vol]268 10*3/uLOhio Valley HospitalWBC (Bld) [#/Vol]7.76 10*3/uLOhio Valley Hospital Basophils (Bld) [#/Vol]0.04 10*3/uLNormal<0.11CCorey Hospital on above:Order Comment: Specimen Type: BLOOD SPECIMENOrdering Facility: [facility] Address:[address] [place] [address] Performed By: #### 92181-0 ####[facility] LABCLIA [id number] [place], [place] [address]Rkhncsvyz/100 WBC (Bld)0.5 % [facility] on above:Order Comment: Specimen Type: BLOOD SPECIMENOrdering Facility: [facility] Address:[address] [place], [place] [address]Performed By: #### 62458-7 ####[facility] LABCLIA [id number] [place] [address] Differential cell count method Nom (Bld)AutoNormalCKeenan Private Hospital Comment on above:Order Comment: Specimen Type: BLOOD SPECIMENOrdering Facility: [facility] Address:[address] [place] [address] Performed By: #### 99794-7 ####[facility] LABCLIA [id number] [place], [place] [address]Nudvdcvjaoo (Bld) [#/Vol]0.81 10*3/uLHigh<0.46[facility] on above:Order Comment: Specimen Type: BLOOD SPECIMENOrdering Facility: [facility] Address:[address] [place], [place] [address]Performed By: #### 72538-0 ####[facility] LABCLIA [id number] [place], [place] [address]Bbrcpvqntuz/100 WBC (Bld)10.4 %[facility] on above:Order Comment: Specimen Type: BLOOD SPECIMENOrdering Facility: [facility] Address:[address] [place], [place] [address]Performed By: #### 73898-3 ####[facility] LABIA [id number] [place], [place] [address]Ibogawixiby distribution width (RBC) [Ratio]14.0 %Clfwuj11.5-15.0[facility] on above: Order Comment: Specimen Type: BLOOD SPECIMENOrdering Facility: [facility] Address:[address] [place], [place] [address]Performed By: #### 62886- 8 ####[facility] LABIA [id number] [place], [place] [address]Tvxvebvqfp (Bld) [Volume fraction]37.4 %Low39.0-51.0 [facility] on above:Order Comment: Specimen Type: BLOOD SPECIMENOrdering Facility: [facility] Address:[address] [place], [place] [address]Performed By: #### 85432-8 ####[facility] LABIA [id number] [place], [place] [address]Kwnahaaams (Bld) [Mass/Vol]12.7 g/dLLow13.0-17.0[facility] on above:Order Comment: Specimen Type: BLOOD SPECIMENOrdering Facility: [facility] Address:[address] [place], [place] [address]Performed By: #### 70950- 8 ####[facility] LABCLIA [id number] [place], [place] [address]Dxyyahlu granulocytes (Bld) [#/Vol]10*3/uLNormal<0.10 [facility] on above:Order Comment: Specimen Type: BLOOD SPECIMENOrdering Facility: [facility] Address:[address] [place], [place] [address]Performed By: #### 60944-2 ####[facility] LABCLIA [id number] [place], [place] [address]Qabuxijn granulocytes/100 WBC (Bld)0.3 %NormalFairfield Medical Center on above: Order Comment: Specimen Type: BLOOD SPECIMENOrdering Facility: [facility] Address:[address] [place], [place] [address]Performed By: #### 47647- 8 ####[facility] LABCLIA [id number] [place], [place] [address]Uuhvunmugsf (Bld) [#/Vol]1.62 10*3/uLNormal1.00-4.00 [facility] on above:Order Comment: Specimen Type: BLOOD SPECIMENOrdering Facility: [facility] Address:[address] [place], [place] [address]Performed By: #### 36567-6 ####[facility] LABIA [id number] [place], [place] [address]Ajzthvbxvdt/100 WBC (Bld)20.9 %NormalFairfield Medical Center on above:Order Comment: Specimen Type: BLOOD SPECIMENOrdering Facility: [facility] Address:[address] [place], [place] [address]Performed By: #### 44012-3 ####[facility] LABIA [id number] [place], [place] [address]UBR (RBC) [Entitic mass]29.8 xyFdkcpn19.0-34.0[facility] on above:Order Comment: Specimen Type: BLOOD SPECIMENOrdering Facility: [facility] Address:[address] [place], [place] [address]Performed By: #### 46242-8 ####[facility] LABIA [id number] [place], [place] [address]MOZQ (RBC) [Mass/Vol]34.0 g/hWZyzxoq20.5-36.0[facility] on above: Order Comment: Specimen Type: BLOOD SPECIMENOrdering Facility: [facility] Address:[address] [place], [place] [address]Performed By: #### 66512- 8 ####[facility] LABCLIA [id number] [place], [place] [address]HGL (RBC) [Entitic vol]87.8 pHHrmxrv17.0-100.0[facility] on above:Order Comment: Specimen Type: BLOOD SPECIMENOrdering Facility: [facility] Address:[address] [place], [place] [address]Performed By: #### 57963-0 ####[facility] LABIA [id number] [place], [place] [address]Izdeqsbxp (Bld) [#/Vol]0.65 10*3/uLNormal<0.87[facility] on above:Order Comment: Specimen Type: BLOOD SPECIMENOrdering Facility: [facility] Address:[address] [place], [place] [address]Performed By: #### 33273- 8 ####[facility] LABIA [id number] [place], [place] [address]Wwubrgngn/100 WBC (Bld)8.4 %NormalFairfield Medical Center on above:Order Comment: Specimen Type: BLOOD SPECIMENOrdering Facility: [facility] Address:[address] [place], [place] [address]Performed By: #### 59565-8 ####[facility] LABCLIA [id number] [place], [place] [address]Uersvejmzaz (Bld) [#/Vol]4.62 10*3/uLNormal1.45-7.50[facility] on above:Order Comment: Specimen Type: BLOOD SPECIMENOrdering Facility: [facility] Address:[address] [place], [place] [address]Performed By: #### 78757-0 ####[facility] LABCLIA [id number] [place], [place] [address]Swsvutfdivm/100 WBC (Bld)59.5 %NormalFairfield Medical Center on above:Order Comment: Specimen Type: BLOOD SPECIMENOrdering Facility: [facility] Address:[address] [place], [place] [address]Performed By: #### 31416-5 ####[facility] LABCLIA [id number] [place], [place] [address]Jinnxrjii RBC (Bld) [#/Vol] 10*3/uLNormal<0.01[facility] on above:Order Comment: Specimen Type: BLOOD SPECIMENOrdering Facility: [facility] Address:[address] [place], [place] [address]Performed By: #### 32135-2 ####[facility] LABCLIA [id number] [place], [place] [address]Hssypsxex RBC/100 WBC (Bld) [Ratio]0.0 /100 WBCNormal [facility] on above:Order Comment: Specimen Type: BLOOD SPECIMENOrdering Facility: [facility] Address:[address] [place], [place] [address]Performed By: #### 45038-1 ####[facility] LABCLIA [id number] [place], [place] [address]Mrtzpazr mean volume (Bld) [Entitic vol]9.3 fLNormal9.0-12.7CCorey Hospital on above:Order Comment: Specimen Type: BLOOD SPECIMENOrdering Facility: [facility] Address:[address] [place] [address] Performed By: #### 43564-1 ####[facility] LABIA [id number] [place], [place] [address]Kponxsgjm (Bld) [#/Vol]268 10*3/kSDmhirt658-047OmowqwbgfFairfield Medical Center on above:Order Comment: Specimen Type: BLOOD SPECIMENOrdering Facility: [facility] Address:[address] [place], [place] [address]Performed By: #### 99988-1 ####[facility]PITALMARIBEL [facility] LABCLIA [id number] [place], [place] [address]ETY (Bld) [#/Vol]4.26 10*6/uLNormal4.20-6.00[facility] on above:Order Comment: Specimen Type: BLOOD SPECIMENOrdering Facility: [facility] Address:[address] [place], [place] [address]Performed By: #### 54549-0 ####[facility]ITALMARIBEL [facility] LABIA [id number] [place], [place] [address]WUC (Bld) [#/Vol]7.76 10*3/uLNormal3.70-11.00[facility] on above: Order Comment: Specimen Type: BLOOD SPECIMENOrdering Facility: [facility] Address:[address] [place], [place] [address]Performed By: #### 91870- 8 ####[facility] HOSPITALMARIBEL [facility] LABIA [id number] [place], [place] [address]KQC CBC W AUTO DIFF BLDon 67-35-4133[facility] BASOPHILS # BLD AUTO0.04NINFMineral Area Regional Medical Center DIFFERENTIAL METHOD BLDAutoNOMS [facility] EOSINOPHIL # BLD AUTO0.81HighNINFMineral Area Regional Medical Center LYMPHOCYTES # BLD AUTO1.62 NOMS [facility] HospitalF MONOCYTES # BLD AUTO0.65NINFHermann Area District HospitalF NEUTROPHILS # BLD AUTO4.62NOResearch Belton HospitalF NRBC # BLD AUTO<0.01NINFMineral Area Regional Medical Center NRBC/100 WBC BLD-RTO0/100 WBCNOUniversity of Missouri Health Care PLATELET # BLD FNYE643DOTOUniversity of [facility] Health Care PMV BLD AUTO9.3 fL9.0 - 12.7 fLNOUT HealthcareF WBC # BLD AUTO 7.76NOMS HealthcareIMM GRANULOCYTES # BLD AUTO<0.03NINFFreeman Health System GRANULOCYTES/LEUK NFR BLD AUTO0.3 %NOMS HealthcareSpecimen Type: BLOOD SPECIMEN [facility] Address: [address] [id number] Original Ordering Provider: ARLEY Ziegler 19-88-0765CQMVTllxom [facility] Medical CenterComprehensive metabolic 2000 panelOrdered By: Dash Handley on [id number] [Mass/Vol]4.5 g/dL3.9 - 4.9 g/dLClechillicothe hospital ClinicALP [Catalytic activity/Vol]78 U/L38 - 113 U/LCleveland ClinicALT [Catalytic activity/Vol]22 U/L10 - 54 U/LCleveland ClinicAnion gap [Moles/Vol]11 mmol/L8 - 15 mmol/LCleveland ClinicAST [Catalytic activity/Vol]20 U/L14 - 40 U/LCleveland ClinicBilirubin [Mass/Vol]0.4 mg/dL0.2 - 1.3 mg/dLClechillicothe hospital ClinicCalcium [Mass/Vol]10 mg/dL8.5 - 10.2 mg/dLPiermont ClinicChloride [Moles/Vol]101 mmol/L 98 - 107 mmol/LCleveland ClinicCO2 [Moles/Vol]29 mmol/L22 - 30 mmol/LCleveland ClinicCreatinine [Mass/Vol]0.78 mg/dL0.73 - 1.22 mg/dLPiermont ClinicGFR/1.73 sq M.predicted among non-blacks MDRD (S/P/Bld) [...] eGFRmay not accurately reflect actual GFR.Glucose [Mass/Vol]145 mg/hBSuxf01 - 99 mg/dL [facility] HospitalComment on above:The [place] Diabetes Association (ADA) provides guidance for cutoff [...] Standards of Medical Care in Diabetes 2016, [place] Diabetes Association. Diabetes Care. 2016.39(Suppl 1). Interpretation and review of laboratory resultsAbnormalCleveland ClinicPotassium [Moles/Vol]3.9 mmol/L3.7 - 5.1 mmol/LClevelatrium health pineville ClinicProtein [Mass/Vol]7 g/dL 6.3 - 8.0 g/dLPiermont ClinicSodium [Moles/Vol]141 mmol/L136 - 144 mmol/L [facility] HospitalUrea nitrogen [Mass/Vol]13 mg/dL9 - 24 mg/dLFairfield Medical CenterComprehensive metabolic 2000 panelon 21-74-5097Fputxsz [Mass/Vol]4.5 g/dLNormal3.9-4.9CCorey Hospital on above:Order Comment: Specimen Type: BLOOD SPECIMENOrdering Facility: [facility] Address:[address] [place], [place] [address]Performed By: #### 2532- 0, 39149-2 ####[facility] LABCLIA [id number] [place], [place] [address]DYL [Catalytic activity/Vol]78 U/MElvkci89-477 [facility] on above:Order Comment: Specimen Type: BLOOD SPECIMENOrdering Facility: [facility] Address:[address] [place], [place] [address]Performed By: #### 2532-0, 19698-7 ####[facility] LABCLIA [id number] [place], [place] [address]TZT [Catalytic activity/Vol]22 U/MNnbzdl67-52AarmhnsftFairfield Medical Center on above:Order Comment: Specimen Type: BLOOD SPECIMENOrdering Facility: [facility] Address:[address] [place], [place] [address]Performed By: #### 2532-0, ####[facility] HOSPITALMARIBEL [facility] LABCLIA [id number] [place], [place] [address]Ebaek gap [Moles/Vol]11 mmol/LNormal8-15 [facility] on above:Order Comment: Specimen Type: BLOOD SPECIMENOrdering Facility: [facility] Address:[address] [place], [place] [address]Performed By: #### 2532-0, 68219-7 ####[facility]ANUNHMARIBEL [facility] LABCLIA [id number] [place], [place] [address]XKK [Catalytic activity/Vol]20 U/ICwaccv98-56AhapthoylFairfield Medical Center on above:Order Comment: Specimen Type: BLOOD SPECIMENOrdering Facility: [facility] Address:[address] [place], [place] [address]Performed By: #### 2532-0, ####[facility] HOSPITALMARIBEL [facility] LABCLIA [id number] [place], [place] [address]Jyvqhgqvi [Mass/Vol]0.4 mg/dLNormal0.2-1.3 [facility] on above:Order Comment: Specimen Type: BLOOD SPECIMENOrdering Facility: [facility] Address:[address] [place], [place] [address]Performed By: #### 2532-0, 33189-8 ####[facility] HOSPITALMARIBEL [facility] LABCLIA [id number] [place], [place] [address]Vpgwlaj [Mass/Vol]10.0 mg/dLNormal8.5-10.2CCorey Hospital on above: Order Comment: Specimen Type: BLOOD SPECIMENOrdering Facility: [facility] Address:[address] [place], [place] [address]Performed By: #### 2532- 0, 64721-9 ####[facility] LABCLIA [id number] [place], [place] [address]Ndgqndik [Moles/Vol]101 mmol/BWnyxnk73-625TnvsogyplFairfield Medical Center on above:Order Comment: Specimen Type: BLOOD SPECIMENOrdering Facility: [facility] Address:[address] [place] [address]Vxsmkfyzr By: #### 2532-0, 72815-6 ####[facility] LABCLIA [id number] [place], [place] [address]RE6 [Moles/Vol]29 mmol/ZHlqfvx54-67IxqcmnarnFirelands Regional Medical CenterComhenry ford kings[facility] hospital on above:Order Comment: Specimen Type: BLOOD SPECIMENOrdering Facility: [facility] Address:[address] [place], [place] [address]Performed By: #### 2532- 0, 42015-1 ####[facility] LABCLIA [id number] [place], [place] [address]Phitgqwluu [Mass/Vol]0.78 mg/dLNormal0.73-1.22 [facility] on above:Order Comment: Specimen Type: BLOOD SPECIMENOrdering Facility: [facility] Address:[address] [place], [place] [address]Performed By: #### 2532-0, 38635-0 ####[facility] LABCLIA [id number] [place], [place] [address]dHFVcn SerPlBld CKD-EPI 332451 mL/min/1.73m???Normal>=60[facility] Comment on above:Order Comment: Specimen Type: BLOOD SPECIMENOrdering Facility: [facility] Address:[address] [place], [place] [address]Result Comment: Estimated Glomerular Filtration Rate (eGFR) is [...] accurately reflect actual GFR.Performed By: #### 2532-0, 72535-8 ####[facility] LABCLIA [id number] [place], [place] [address]Ehdhqwo [Mass/Vol]145 mg/kEEsxj86-83 [facility] on above:Order Comment: Specimen Type: BLOOD SPECIMENOrdering Facility: [facility] Address:[address] [place] [address]Wwlmll Comment: The [place] Diabetes Association (ADA) provides guidance for cutoff [...] Standards of Medical Care in Diabetes 2016, [place] Diabetes Association. Diabetes Care. 2016.39(Suppl 1).Performed By: #### 2532-0, 56510-3 ####[facility] LABCLIA [id number] [place], [place] [address]Caaczhyqk [Moles/Vol]3.9 mmol/LNormal3.7-5.1 [facility] on above:Order Comment: Specimen Type: BLOOD SPECIMENOrdering Facility: [facility] Address:[address] [place], [place] [address]Tfdpswwha By: #### 2532-0, 67060-8 ####[facility] LABCLIA [id number] [place], [place] [address]Fzctjlp [Mass/Vol]7.0 g/dLNormal6.3-8.0[facility] on above:Order Comment: Specimen Type: BLOOD SPECIMENOrdering Facility: [facility] Address:[address] [place] [address]Clkxkxucb By: #### 2532- 0, 62408-7 ####[facility] LABCLIA [id number] [place], [place] [address]Hueuuo [Moles/Vol]141 mmol/CNwaket291-143VkvypusulFairfield Medical Center on above:Order Comment: Specimen Type: BLOOD SPECIMENOrdering Facility: [facility] Address:[address] [place], [place] [address]Performed By: #### 2532-0, 66025-3 ####[facility] LABCLIA [id number] [place], [place] [address]Fcqj nitrogen [Mass/Vol]13 mg/dLNormal9-24[facility] on above: Order Comment: Specimen Type: BLOOD SPECIMENOrdering Facility: [facility] Address:[address] [place], [place] [address]Performed By: #### 2532- 0, 88675-4 ####[facility] LABCLIA [id number] [place], [place] [address]Jdjxqtmi SerPl-mCncon 98-06-5246Xihvbmms [Mass/Vol] 37.4 ng/uSXxbasd84.3-565.7CCorey Hospital on above:Order Comment: Specimen Type: BLOOD SPECIMENOrdering Facility: [facility] Address:[address] [place], [place] [address]Performed By: #### 2276- 4, 67568-0, 3016-3 ####[facility] LABCLIA [id number] [place] [address] [place] AMERICAFolate SerPl-mCncon 80-18-6719Qiautz [Mass/Vol]ng/mLNormal>4.7CCorey Hospital on above:Order Comment: Specimen Type: BLOOD SPECIMENOrdering Facility: [facility] Address:[address] [place], [place] [address]Result Comment: A result of > 20 ng/mL is not necessarily indicative of a pathologic or treatable condition: it reflects a limitation of the test methodology.Assay reference range: 4.8 to 24.2 ng/mL. Suitable for detection of folate deficiency.Reference:Folate III (Folate III) [package insert V 1.0 Portuguese]. [employer], [place], [place]: January 2015.Performed By: #### 2132-9, 2284-8 ####[facility] LABIA [id number] [place] [id number] [place] OF AMERICAIron and Iron binding capacity panelon 44-14-9440Faai [Mass/Vol]70 ug/kYFgjyvr50-816ItpwwqcqkFirelands Regional Medical CenterComment on above:Order Comment: Specimen Type: BLOOD SPECIMENOrdering Facility: [facility] Address:[address] [place], [place] [address]Performed By: #### 2276-4, 74445-7, 3016-3 ####[facility] LABIA [id number] [place] [id number] [facility] OF AMERICAIron binding capacity [Mass/Vol]372 ug/sWDwchcr534-129TzzknqvxaFirelands Regional Medical CenterComment on above:Order Comment: Specimen Type: BLOOD SPECIMENOrdering Facility: [facility] Address:[address] [place], [place] [address]Performed By: #### 2276-4, 61971-5, 3016-3 ####[facility] [id number] [place] [id number] [facility] AMERICAIron/TIBC [Molar ratio]18.8 %Fxacmt27.0-57.0[facility] Comment on above:Order Comment: Specimen Type: BLOOD SPECIMENOrdering Facility: [facility] Address:[address] [place] [address] Performed By: #### 2276-4, 26396-8, 3016-3 ####[facility] LABIA [id number] [address] [address] [facility] HOSPITALLACTATE DEHYDROGENASEon 80-59-3291XOI [Catalytic activity/Vol]152 U/L135 - 225 U/LCSumma Health SerPl-cCncon 31-68-5439RZO [Catalytic activity/Vol] 152 U/VYqkmfa346-151ZwquihlddFairfield Medical Center on above:Order Comment: Specimen Type: BLOOD SPECIMENOrdering Facility: [facility] Address:[address] [place] [address]Savmyzezb By: #### 2532-0, 11413-2 ####[facility] LABCLIA [id number] [place], [place] [address]VEK [Catalytic activity/Vol]on 85-71-3355Xdziejbghuumig and review of laboratory resultsNoalCMercy Health Anderson Hospitaloratory - Hematology and Cell countson 07-57-2660Mmzrgzmlc/100 WBC (Bld)0.5 %[facility] HealthcareEosinophils/100 WBC (Bld)10.4 %[facility] HealthErythrocyte distribution width (RBC) [Ratio]14 %11.5 - 15.0 %[facility] HealthHematocrit (Bld) [Volume fraction]37.4 %Low39.0 - 51.0 %[facility] HealthHemoglobin (Bld) [Mass/Vol]12.7 g/dLLow13.0 - 17.0 g/dLCrittenton Behavioral HealthLymphocytes/100 WBC (Bld)20.9 %[facility] Institute [facility] St. LouisH (RBC) [Entitic mass]29.8 pg26.0 - 34.0 pgThe Rehabilitation Institute of St. LouisHC (RBC) [Mass/Vol]34 g/dL30.5 - 36.0 g/dLThe Rehabilitation Institute of St. LouisV (RBC) [Entitic vol]87.8 fL 80.0 - 100.0 fLCrittenton Behavioral HealthMonocytes/100 WBC (Bld)8.4 %[facility] Neutrophils/100 WBC (Bld)59.5 %[facility]al HealthRBC (Bld) [#/Vol]4.26 10*6/uL4.20 - 6.00 m/uLSALT LAKE BE[facility]IORAL [facility] HealthcareNo Panel Informationon 13-74-3569Dropdcavzfhuoh and review of laboratory resultsAbnormalHighlands-Cashiers HospitalTS SerPl-aCnc on 96-72-4433CHG Qn0.576 m[IU]/LNormal0.270-4.200[facility] Comment on above:Order Comment: Specimen Type: BLOOD SPECIMENOrdering Facility: [facility] Address:[address] [place] [address] Performed By: #### 2276-4, 71401-7, 3016-3 ####[facility] LABCLIA [id number] [address] STATES OF [facility] COMM[facility] GENERAL HOSPITALVit B12 SerPl-ncon 95-14-2082Zjnzhgryz (Vitamin B12) [Mass/Vol]761 pg/nMHkeodv083-2522Mghfqismq Clinic ClevelandComment on above:Order Comment: Specimen Type: BLOOD SPECIMENOrdering Facility: [facility] Address:[address] [place], [place] [address]Performed By: #### 2132-9, 2284-8 ####[facility] LABCLIA [id number] [address] OF [facility] GENERAL HOSPITALCNOVon 95-55-7582PDHWFffuck [facility] Medical CenterCNPNon 41-49-2305ZJRZMngmlrCkbsfcbsm Clinic [place] MR BRAIN W AND WO CONTRAST (ROUTINE)on 07-66-1619TW BRAIN W AND WO CONTRAST (ROUTINE)EXAM: MRI [...] report is generated using voice recognition reporting ([facility]). On occasion [employer] erroneously drops words from the report or replaces the spoken word with similar sounding words. Please call with any questions/concerns regarding this report.* Dictated and transcribed 08/08/24/dpd This report has been electronically signed and approved by the interpreting radiologist.NormalNot AvailableCNPNon 18-96-5919YIGUHbvasxXzxfbyuzt Clinic ClevelandACT Plas-mCncon 87-99-1913Iuytqqtegwurc (P) [Mass/Vol]8.4 pg/mLNormal 7.2-63.3CKeenan Private HospitalComhenry ford kingswood hospital on above:Order Comment: Specimen Type: BLOOD SPECIMENOrdering Facility: [facility] Address:[address] [place], [place] [address]Result Comment: ACTH Reference Range: 7-10 am: 7.2 - 63.3 pg/mLPerformed By: #### 2141-0 ####[facility] LABCLIA [id number] [address] OF AMERICASAINT JOSEPH EAST W Auto Differential panel (Bld)on 95-97-9776Zudzjijgy (Bld) [#/Vol] 0.06 10*3/uLNIProMedica Fostoria Community HospitalDifferential cell count method Nom (Bld)Auto [facility] HospitalEosinophils (Bld) [#/Vol]0.5 10*3/uLHighNIProMedica Fostoria Community Hospital Immature granulocytes (Bld) [#/Vol]NINFCAvita Health System Galion HospitalImmature granulocytes/100 WBC (Bld)0.2 %[facility] HospitalLymphocytes (Bld) [#/Vol]1.72 10*3/Parkwood HospitalMonocytes (Bld) [#/Vol]0.74 10*3/uLNIProMedica Fostoria Community HospitalNeutrophils (Bld) [#/Vol]5.16 10*3/[facility]wood HospitalNucleated RBC (Bld) [#/Vol]NINFCAvita Health System Galion HospitalNucleated RBC/100 WBC (Bld) [Ratio]0 %/100 WBCOhio Valley HospitalPlatelet mean volume (Bld) [Entitic vol]9 fL9.0 - 12.7 fLCAvita Health System Galion HospitalPlatelets (Bld) [#/Vol]283 10*3/[facility] HospitalWBC (Bld) [#/Vol]8.2 10*3/[facility] Basophils (Bld) [#/Vol]0.06 10*3/uLNormal<0.11CCorey Hospital on above:Order Comment: Specimen Type: BLOOD SPECIMENOrdering Facility: [facility] Address:[address] [place] [address] Performed By: #### 66021-6 ####[facility] LABIA [id number] [place], [place] [address]Kcarynfsm/100 WBC (Bld)0.7 % NormalFairfield Medical Center on above:Order Comment: Specimen Type: BLOOD SPECIMENOrdering Facility: [facility] Address:[address] [place], [place] [address]Performed By: #### 36975-8 ####[facility] LABCLIA [id number] [place] [address] Differential cell count method Nom (Bld)AutoNormalClevelUNC Health Nash Comment on above:Order Comment: Specimen Type: BLOOD SPECIMENOrdering Facility: [facility] Address:[address] [place] [address] Performed By: #### 50030-3 ####[facility] LABCLIA [id number] [place], [place] [address]Murhwxakzga (Bld) [#/Vol]0.50 10*3/uLHigh<0.46[facility] on above:Order Comment: Specimen Type: BLOOD SPECIMENOrdering Facility: [facility] Address:[address] [place], [place] [address]Performed By: #### 98455-3 ####[facility] LABCLIA [id number] [place], [place] [address]Znspdrkrjhz/100 WBC (Bld)6.1 %NormalFairfield Medical Center on above:Order Comment: Specimen Type: BLOOD SPECIMENOrdering Facility: [facility] Address:[address] [place], [place] [address]Performed By: #### 91114-2 ####[facility] LABCLIA [id number] [place], [place] [address]Vrrqshhimct distribution width (RBC) [Ratio]14.1 %Wwyciv43.5-15.0[facility] on above: Order Comment: Specimen Type: BLOOD SPECIMENOrdering Facility: [facility] Address:[address] [place], [place] [address]Performed By: #### 28406- 8 ####[facility] LABCLIA [id number] [place], [place] [address]Dwbiarcyfx (Bld) [Volume fraction]34.6 %Low39.0-51.0 [facility] on above:Order Comment: Specimen Type: BLOOD SPECIMENOrdering Facility: [facility] Address:[address] [place], [place] [address]Performed By: #### 99447-8 ####[facility] LABCLIA [id number] [place], [place] [address]Cciunodyaq (Bld) [Mass/Vol]11.6 g/dLLow13.0-17.0[facility] on above:Order Comment: Specimen Type: BLOOD SPECIMENOrdering Facility: [facility] Address:[address] [place], [place] [address]Performed By: #### 90975- 8 ####[facility] LABCLIA [id number] [place], [place] [address]Qfohikrm granulocytes (Bld) [#/Vol]10*3/uLNormal<0.10 [facility] on above:Order Comment: Specimen Type: BLOOD SPECIMENOrdering Facility: [facility] Address:[address] [place], [place] [address]Performed By: #### 50594-5 ####[facility] LABIA [id number] [place], [place] [address]Vrtqxmwe granulocytes/100 WBC (Bld)0.2 %NormalFairfield Medical Center on above: Order Comment: Specimen Type: BLOOD SPECIMENOrdering Facility: [facility] Address:[address] [place], [place] [address]Performed By: #### 62821- 8 ####[facility] LABCLIA [id number] [place], [place] [address]Nxlugincwiq (Bld) [#/Vol]1.72 10*3/uLNormal1.00-4.00 [facility] on above:Order Comment: Specimen Type: BLOOD SPECIMENOrdering Facility: [facility] Address:[address] [place], [place] [address]Performed By: #### 87318-2 ####[facility] LABIA [id number] [place], [place] [address]Bxrnbipgjsj/100 WBC (Bld)21.0 %NormalFairfield Medical Center on above:Order Comment: Specimen Type: BLOOD SPECIMENOrdering Facility: [facility] Address:[address] [place], [place] [address]Performed By: #### 71884-3 ####[facility] LABCLIA [id number] [place], [place] [address]IIB (RBC) [Entitic mass]29.3 dpDfudrg84.0-34.0[facility] on above:Order Comment: Specimen Type: BLOOD SPECIMENOrdering Facility: [facility] Address:[address] [place], [place] [address]Performed By: #### 07701-0 ####[facility] LABIA [id number] [place], [place] [address]RJPM (RBC) [Mass/Vol]33.5 g/cOPtwxtl30.5-36.0[facility] on above: Order Comment: Specimen Type: BLOOD SPECIMENOrdering Facility: [facility] Address:[address] [place], [place] [address]Performed By: #### 15833- 8 ####[facility] LABIA [id number] [place], [place] [address]SVL (RBC) [Entitic vol]87.4 oXKlhyur42.0-100.0[facility] on above:Order Comment: Specimen Type: BLOOD SPECIMENOrdering Facility: [facility] Address:[address] [place], [place] [address]Performed By: #### 99701-3 ####[facility] LABIA [id number] [place], [place] [address]Tjmcmcqqv (Bld) [#/Vol]0.74 10*3/uLNormal<0.87[facility] on above:Order Comment: Specimen Type: BLOOD SPECIMENOrdering Facility: [facility] Address:[address] [place], [place] [address]Performed By: #### 68553- 8 ####[facility] LABCLIA [id number] [place], [place] [address]Kiauddrlt/100 WBC (Bld)9.0 %NormalFairfield Medical Center on above:Order Comment: Specimen Type: BLOOD SPECIMENOrdering Facility: [facility] Address:[address] [place], [place] [address]Performed By: #### 28969-2 ####[facility] LABCLIA [id number] [place], [place] [address]Kvowvedmkcx (Bld) [#/Vol]5.16 10*3/uLNormal1.45-7.50[facility] on above:Order Comment: Specimen Type: BLOOD SPECIMENOrdering Facility: [facility] Address:[address] [place], [place] [address]Performed By: #### 00572-1 ####[facility] LABCLIA [id number] [place], [place] [address]Ocvnzvoldjs/100 WBC (Bld)63.0 %NormalFairfield Medical Center on above:Order Comment: Specimen Type: BLOOD SPECIMENOrdering Facility: [facility] Address:[address] [place], [place] [address]Performed By: #### 48243-2 ####[facility] LABCLIA [id number] [place], [place] [address]Fkqivdsfu RBC (Bld) [#/Vol] 10*3/uLNormal<0.01[facility] on above:Order Comment: Specimen Type: BLOOD SPECIMENOrdering Facility: [facility] Address:[address] [place], [place] [address]Performed By: #### 49241-8 ####[facility] LABCLIA [id number] [place], [place] [address]Kpfpfklxl RBC/100 WBC (Bld) [Ratio]0.0 /100 WBCNormal [facility] on above:Order Comment: Specimen Type: BLOOD SPECIMENOrdering Facility: [facility] Address:[address] [place], [place] [address]Performed By: #### 45173-7 ####[facility] LABCLIA [id number] [place], [place] [address]Jbtyiwao mean volume (Bld) [Entitic vol]9.0 fLNormal9.0-12.7CCorey Hospital on above:Order Comment: Specimen Type: BLOOD SPECIMENOrdering Facility: [facility] Address:[address] [place] [address] Performed By: #### 30618-0 ####[facility] LABCLIA [id number] [place], [place] [address]Apyuixydy (Bld) [#/Vol]283 10*3/wJNecqlu060-791WtrpqiyvwFairfield Medical Center on above:Order Comment: Specimen Type: BLOOD SPECIMENOrdering Facility: [facility] Address:[address] [place], [place] [address]Performed By: #### 19282-3 ####[facility] LABCLIA [id number] [place], [place] [address]DWU (Bld) [#/Vol]3.96 10*6/uLLow4.20-6.00[facility] on above:Order Comment: Specimen Type: BLOOD SPECIMENOrdering Facility: [facility] Address:[address] [place], [place] [address]Performed By: #### 90160-2 ####[facility] LABIA [id number] [place], [place] [address]DVT (Bld) [#/Vol]8.20 10*3/uL Normal3.70-11.00[facility] on above:Order Comment: Specimen Type: BLOOD SPECIMENOrdering Facility: [facility] Address:[address] [place], [place] [address]Performed By: #### 60697-5 ####[facility] LABCLIA [id number] [place], [place] [address]LCP CBC W AUTO DIFF BLDon 74-10-6109IWE BASOPHILS # BLD AUTO0.06NIHardin County Medical Center DIFFERENTIAL METHOD BLDAutoNOMUniversity Health Truman Medical Center EOSINOPHIL # BLD AUTO0.5HighNIHardin County Medical Center LYMPHOCYTES # BLD AUTO1.72 NOMS [facility] HospitalF MONOCYTES # BLD AUTO0.74NIHardin County Medical Center NEUTROPHILS # BLD AUTO5.16NOUniversity of Missouri Health Care NRBC # BLD AUTO<0.01NIHardin County Medical Center NRBC/100 WBC BLD-RTO0/100 WBCMineral Area Regional Medical Center PLATELET # BLD DSUD269LDTUMineral Area Regional Medical Center PMV BLD AUTO9 fL9.0 - 12.7 fLMineral Area Regional Medical Center WBC # BLD AUTO8.2 NOMCenterpoint Medical CenterIM GRANULOCYTES # BLD AUTO<0.03NILincoln County Health System GRANULOCYTES/LEUK NFR BLD AUTO0.2 %[facility] HealthSpecimen Type: BLOOD SPECIMEN Ordering Facility: [facility] Address: [address] [place] [address] Original Ordering Provider: ARLEY OROZCOLINISYNCComprehensive metabolic 2000 panelOrdered By: Dash Handley on [id number] [Mass/Vol]4.4 g/dL3.9 - 4.9 g/dLPiermont ClinicALP [Catalytic activity/Vol]79 U/L38 - 113 U/LCleveland ClinicALT [Catalytic activity/Vol]11 U/L10 - 54 U/LCleveland ClinicAnion gap [Moles/Vol]13 mmol/L8 - 15 mmol/LCleveland ClinicAST [Catalytic activity/Vol]12 U/LLow14 - 40 U/LCleveland ClinicBilirubin [Mass/Vol]0.3 mg/dL0.2 - 1.3 mg/dL Piermont ClinicCalcium [Mass/Vol]9.8 mg/dL8.5 - 10.2 mg/dLOhio Valley Hospital Chloride [Moles/Vol]106 mmol/L98 - 107 mmol/LCleveland ClinicCO2 [Moles/Vol]27 mmol/L22 - 30 mmol/LCleveland ClinicCreatinine [Mass/Vol]0.67 mg/dLLow0.73 - 1.22 mg/dLOhio Valley HospitalGFR/1.73 sq M.predicted among non-blacks MDRD (S/P/Bld) [Vol rate/Area]102 mL/min/{1.73_m2}- PINFCAvita Health System Galion HospitalComment on above:Estimated Glomerular Filtration Rate (eGFR) [...] actual GFR.Glucose [Mass/Vol] 90 mg/dL74 - 99 mg/dLNorwalk Memorial Hospital on above:The [place] [employer] (ADA) provides guidance for cutoff [...] Standards of Medical Care in Diabetes 2016, [place] [employer]. Diabetes Care. 2016.39(Suppl 1). Interpretation and review of laboratory resultsAbnormalCleveland ClinicPotassium [Moles/Vol]4 mmol/L3.7 - 5.1 mmol/LCleveland ClinicProtein [Mass/Vol]6.4 g/dL 6.3 - 8.0 g/dLSumma Health Wadsworth - Rittman Medical Centerodium [Moles/Vol]146 mmol/WUrtj875 - 144 mmol/L [facility] Valley HospitalUrea nitrogen [Mass/Vol]19 mg/dL9 - 24 mg/dLFairfield Medical CenterComprehensive metabolic 2000 panelon [id number] [Mass/Vol]4.4 g/dLNormal3.9-4.9CCorey Hospital on above:Order Comment: Specimen Type: BLOOD SPECIMENOrdering Facility: [facility] Address:[address] [place], [place] [address]Performed By: #### [id number] ####[facility] HOSPITALMARIBEL [facility] LABCLIA [id number] [place] [id number] [Catalytic activity/Vol]79 U/WMllgym17-543XvsnxupieFairfield Medical Center on above:Order Comment: Specimen Type: BLOOD SPECIMENOrdering Facility: [facility] Address:[address] [place], [place] [address]Performed By: #### 95434-9 ####[facility] LABCLIA [id number] ERNIE JOCELYNBARROW NEUROLOGICAL INSTITUTETANYA[place]OL[place], [place] [address]VDZ [Catalytic activity/Vol]11 U/NTlibmu82-72KbfnnniozFairfield Medical Center on above:Order Comment: Specimen Type: BLOOD SPECIMENOrdering Facility: [facility] Address:[address] [place], [place] [address]Performed By: #### 79489- 8 ####[facility] LABCLIA [id number] ERNIE JEROME COTTONBARROW NEUROLOGICAL INSTITUTETESSAPAT[place], [place] [address]Btica gap [Moles/Vol]13 mmol/LNormal8-15[facility] on above:Order Comment: Specimen Type: BLOOD SPECIMENOrdering Facility: [facility] Address:[address] [place], [place] [address]Performed By: #### 75168-7 ####[facility] LABCLIA [id number] LLOYD BANKSBARROW NEUROLOGICAL INSTITUTETESSAPATERSON, [place] [address]RFT [Catalytic activity/Vol]12 U/LIdl39-72PiglepuorFairfield Medical Center on above:Order Comment: Specimen Type: BLOOD SPECIMENOrdering Facility: [facility] Address:[address] [place], [place] [address]Performed By: #### 52899-3 ####[facility] LABCLIA [id number] [place] [address] Bilirubin [Mass/Vol]0.3 mg/dLNormal0.2-1.3CCorey Hospital on above:Order Comment: Specimen Type: BLOOD SPECIMENOrdering Facility: [facility] Address:[address] [place], [place] [address]Performed By: #### 52006-0 ####[facility] LABCLIA [id number] [place], [place] [address]Bilhhlf [Mass/Vol]9.8 mg/dLNormal8.5-10.2CCorey Hospital on above:Order Comment: Specimen Type: BLOOD SPECIMENOrdering Facility: [facility] Address:[address] [place], [place] [address]Performed By: #### 44340-4 ####[facility] LABCLIA [id number] [facility]ITAL[place]ENE[place], [place] [address]Jztfgsel [Moles/Vol]106 mmol/CNhnydk03-602WwuzvlmqhFairfield Medical Center on above: Order Comment: Specimen Type: BLOOD SPECIMENOrdering Facility: [facility] Address:[address] [place], [place] [address]Performed By: #### 47358- 8 ####[facility] LABCLIA [id number] [facility] [place], [place] [address]MI8 [Moles/Vol]27 mmol/USklytw97-51UighfdjdzFairfield Medical Center on above:Order Comment: Specimen Type: BLOOD SPECIMENOrdering Facility: [facility] Address:[address] [place], [place] [address]Performed By: #### 31089-8 ####[facility] LABCLIA [id number] [place], [place] [address]Mtqxykabdi [Mass/Vol]0.67 mg/dL Low0.73-1.22[facility] on above:Order Comment: Specimen Type: BLOOD SPECIMENOrdering Facility: [facility] Address:[address] [place], [place] [address]Performed By: #### 30627-6 ####[facility] LABCLIA [id number] [place] [address] Creatinine and Glomerular filtration rate.predicted panel (S/P/Bld)102 mL/min/1.73m???Normal>=60[facility] on above:Order Comment: Specimen Type: BLOOD SPECIMENOrdering Facility: [facility] Address:[address] [place], [place] [address]Result Comment: Estimated Glomerular Filtration Rate (eGFR) is [...] not accurately reflect actual GFR.Performed By: #### 17548-6 ####[facility] LABCLIA [id number] [place], [place] [address]Adfwggw [Mass/Vol]90 mg/uUHmlckn70-80WavqkmciaFairfield Medical Center on above:Order Comment: Specimen Type: BLOOD SPECIMENOrdering Facility: [facility] Address:[address] [place] [address] Comment: The [place] Diabetes Association (ADA) provides guidance for cutoff [...] Standards of Medical Care in Diabetes 2016, [place] [employer]. Diabetes Care. 2016.39(Suppl 1).Performed By: #### 96645-5 ####[facility] LABCLIA [id number] [place], [place] [address]Tchzolgkj [Moles/Vol]4.0 mmol/LNormal3.7-5.1CCorey Hospital on above:Order Comment: Specimen Type: BLOOD SPECIMENOrdering Facility: [facility] Address:[address] [place], [place] [address]Performed By: #### 73227-8 ####[facility] LABCLIA [id number] [place], [place] [address]Cfgnvth [Mass/Vol]6.4 g/dLNormal6.3-8.0[facility] on above:Order Comment: Specimen Type: BLOOD SPECIMENOrdering Facility: [facility] Address:[address] [place], [place] [address]Performed By: #### 87292- 8 ####[facility] LABCLIA [id number] [place], [place] [address]Acnfhm [Moles/Vol]146 mmol/QEvzs518-074OuzqmbtndFairfield Medical Center on above:Order Comment: Specimen Type: BLOOD SPECIMENOrdering Facility: [facility] Address:[address] [place], [place] [address]Performed By: #### 93329-7 ####[facility] LABCLIA [id number] [place], [place] [address]Gqtf nitrogen [Mass/Vol]19 mg/dLNormal9-24[facility] on above:Order Comment: Specimen Type: BLOOD SPECIMENOrdering Facility: [facility] Address:[address] [place], [place] [address]Performed By: #### 98965-5 ####[facility] LABCLIA [id number] [place], [place] [address]Ezgrqtckouaoj (P) [Mass/Vol]on 40-70-6616Jtdsezmilhbvzj and review of laboratory resultsNormalCAdena Pike Medical CenterGLUCOSE, BLOOD (POC)on 16-01-1951Comuwyp [Mass/Vol]91 mg/dL74 - 99 mg/dLOhio Valley Hospital Comment on above:Location:[facility], [address] [place] [address] , [place], [place], [address] The Accu-Chek Inform II glucose meter has [...] blood gas instrument) in the above situations. [facility] HospitalLaboratory - Chemistry and Chemistry - challengeon 06-29-0537OAK Qn3.17 m[IU]/LCleveland ClinicCorticotropin (P) [Mass/Vol]8.4 pg/mL7.2 - 63.3 pg/mLCleveland ClinicComment on above:ACTH Reference Range: 7-10 am: 7.2 - 63.3 pg/mLLaboratory - Hematology and Cell countson 49-98-8546Dgkrknnty/100 WBC (Bld) 0.7 %NOMS [facility] SouthEosinophils/100 WBC (Bld)6.1 %[facility] Behavioral HealthErythrocyte distribution width (RBC) [Ratio]14.1 %11.5 - 15.0 %NOMCenterpoint Medical CenterHematocrit (Bld) [Volume fraction]34.6 %Low39.0 - 51.0 %NOMCenterpoint Medical CenterHemoglobin (Bld) [Mass/Vol]11.6 g/dLLow13.0 - 17.0 g/dLNOSSM Health CareLymphocytes/100 WBC (Bld)21 %NOMCenterpoint Medical CenterMCH (RBC) [Entitic mass]29.3 pg26.0 - 34.0 pgNOMS [facility] MCHC (RBC) [Mass/Vol]33.5 g/dL30.5 - 36.0 g/dLNOSSM Health CareMCV (RBC) [Entitic vol]87.4 fL80.0 - 100.0 fLNOSSM Health CareMonocytes/100 WBC (Bld)9 %NOMS [facility] SouthNeutrophils/100 WBC (Bld)63 %NOMS [facility] SouthRBC (Bld) [#/Vol]3.96 10*6/uLLow4.20 - 6.00 m/[facility] PET/CT SKULL-THIGH SUBQon 08-03-2024 * * *Final [...] * Uptake Time: 66 minutes * Radiopharmaceutical: I01-Yiyizoiazzeusoiqdp (FDG) COMPARISON: FDG PET/CT 04/03/2024 CORRELATION: No [...] any questions regarding this interpretation, please call [phone]. If you are unable to reach us at the number above, please feel free to contact [facility] Hospitaliology at [phone] (more content not included)...CCFRadiology, Radiologist, - 08/03/2024 [...] * Uptake Time: 66 minutes * Radiopharmaceutical: V56-Lhhhnrobvvotehygzz (FDG) COMPARISON: FDG PET/CT 04/03/2024 CORRELATION: No [...] any questions regarding this interpretation, please call [phone]. If you are unable to reach us at the number above, please feel free to contact [facility] eRadiology at [phone]. (more content not included)...[facility] PET/CT SKULL-THIGH SUBQNormalCProMedica Fostoria Community Hospital Panel InformationOrdered By: Radiologist Radiology on 01-74-3987GWYQCrittenton Behavioral Health Work Phone: No Panel Informationon 66-11-1412Rbiqavdgdkrjro and review of laboratory resultsAbnoDepartment of Veterans Affairs William [facility]. [facility]leton Memorial VA HospitalRadiology Study observation (narrative)[facility] Behavioral HealthPET+CT Guidance for localization of tumor of Skull [...] * Uptake Time: 66 minutes * Radiopharmaceutical: Y20-Sgjhmmbtdahtpxnxas (FDG) COMPARISON: FDG PET/CT 04/03/2024 CORRELATION: No [...] the report reviewed and electronically signed by: EMKA NOLASCO MD on Aug 03 2024 5:41PM EST Thank you for allowing us to participate in the care of your patient. Should there be any questions regarding this interpretation, please call [phone]. If you are unable to reach us at the number above, please feel free to contact [facility] at [phone] (more content not included)...DIVISION OF RADIOLOGYProvider, [facility] [place] - 08/03/2024 * * *Final Report* * [...] * Uptake Time: 66 minutes * Radiopharmaceutical: W10-Knlefhhuedvsyggnez (FDG) COMPARISON: FDG PET/CT 04/03/2024 CORRELATION: No [...] any questions regarding this interpretation, please call [phone]. If you are unable to reach us at the number above, please feel free to contact [facility] eRadiology at [phone] (more content not included)...[facility] Qnon 99-71-2725Ewdmgwhntrurax and review of laboratory resultsNormalCleveland [facility] SerPl-aCnc on 60-44-8025DAX Qn3.170 m[IU]/LNormal0.270-4.200[facility] Comment on above:Order Comment: Specimen Type: BLOOD SPECIMENOrdering Facility: [facility] Address:[address] [place] [address] Performed By: #### 3016-3 ####[facility] LABCLIA [id number] [place] [address] [place] APTTon 23-73-8069jSRP Coag (Bld) [Time]28 gBzvgof22-04EjoNuviomRiverview Health Institute Comment on above:Performed By: #### PTT ####[facility] ([address] [place] [address] VIRBASIC METABOLIC PANELon 07-31-2024 Anion gap [Moles/Vol]4 mmol/LLow5-15Riverview Health InstituteComment on above: Performed By: #### BMP #### [facility] ([address] [place] [address] VIRCalcium [Mass/Vol]8.6 mg/dLNormal8.5-10.5PCleveland Clinic Akron GeneralComment on above:Performed By: #### BMP #### [facility] ([address] [place] [address] VIRChloride [Moles/Vol]101 mmol/EHczkni60-285VajTasaqiBellville Medical CenterComment on above:Performed By: #### BMP #### [facility] ([address] [place] [address] VIRCO2 [Moles/Vol]27 mmol/HForkun12-04UtfTdctnsCleveland Clinic Akron GeneralComment on above:Performed By: #### BMP #### [facility] ([address] [place] [address] VIRCreatinine [Mass/Vol]0.66 mg/dLLow0.70-1.20Riverview Health InstituteComment on above:Result Comment: METHOD TRACEABLE TO IDMS STANDARDPerformed By: #### BMP #### [facility] ([address] [place] [address] VIREGFR (CKD-EPI) NON-RACE DEPENDENT>^90Normal>=60ProBellville Medical CenterComment on above:Result Comment: eGFR not reported due to non- numeric value for Creatinine. Reported eGFR is based on the CKD-EPI 2020 equation that does not use a race coefficient.Performed By: #### BMP #### [facility] ([address] [place] [address] VIRGlucose [Mass/Vol]105 mg/kGIpgn15-27DwoVcrzxnBellville Medical CenterComment on above:Performed By: #### BMP #### [facility] ([address] [place] [address] VIRPotassium [Moles/Vol]3.2 mmol/LLow3.5-5.0ProBellville Medical CenterComment on above:Performed By: #### BMP #### [facility] ([address] [place] [address] VIRSodium [Moles/Vol]132 mmol/PZtd869-564ZphSfsqwkBellville Medical CenterComment on above:Performed By: #### BMP #### [facility] ([address] [place] [address] VIRUrea nitrogen [Mass/Vol]14 mg/dLNormal5-27ProBellville Medical CenterComment on above:Performed By: #### BMP #### [facility] ([address] [place] [address] VIRBEDSIDE GLUCOSEon 23-69-4000Ufyweqs [Mass/Vol]102 mg/dLHigh 65-99Riverview Health InstituteComment on above:Performed By: #### BEDG #### [facility] ([address] [place] [address] VIRCBC WITH AUTO DIFFERENTIALon 75-61-3494HDZRQAKBG ABSOLUTE COUNT (10*3/UL) BY AUTOMATED COUNT0.1 10*3/uLNormal0.0-0.2Pro[facility]ica [facility]prise Valley Community HospitalComment on above:Performed By: #### CBCA #### [facility] ([address] [place] [address] VIRBASOPHILS RELATIVE PERCENT BY AUTOMATED COUNT0.6 %Normal [facility] Health InstituteComment on above:Performed By: #### CBCA #### [facility] ([address] [place] [address] VIRCELLAVISION DIFFERENTIAL TYPEAUTOMATED DIFFERENTIALNormal [facility] InstituteComment on above:Performed By: #### CBCA #### [facility] ([address] [place] [address] VIREosinophils (Bld) [#/Vol]0.4 10*3/uLNormal0.0-0.4Riverview Health InstituteComment on above:Performed By: #### CBCA #### [facility] ([address] [address] VIREOSINOPHILS RELATIVE PERCENT BY AUTOMATED COUNT4.1 %Normal [facility] Health InstituteComhenry ford kings[facility] on above:Performed By: #### CBCA #### [address] [place] [address] VIRErythrocyte distribution width (RBC) [Ratio]14.6 %Normal 11.5-15ProBellville Medical CenterComment on above:Performed By: #### CBCA #### [facility] ([address] [place] [address] VIRHematocrit (Bld) [Volume fraction]34.0 %Khn98-61HsnHvllzuBellville Medical CenterComment on above:Performed By: #### CBCA #### [facility] ([address] [place] [address] VIRHemoglobin (Bld) [Mass/Vol]11.7 g/eMEio48-35GkxNxrrzgBellville Medical CenterComment on above:Performed By: #### CBCA #### [facility] ([address] [address] VIRLYMPHOCYTES ABSOLUTE COUNT (10*3/UL) BY AUTOMATED COUNT1.7 10*3/uLNormal1.0-3.5PCleveland Clinic Akron GeneralComment on above:Performed By: #### CBCA #### [facility] ([place]) [address] [place] [address] [place] [address] VIRLYMPHOCYTES RELATIVE PERCENT BY AUTOMATED COUNT16.0 %Normal [facility] Health InstituteComment on above:Performed By: #### CBCA #### [facility] ([facility]) [address] [place] [address] [place] [address] VIRMCH (RBC) [Entitic mass]29.6 pvQrpqwm41-27RgdCfflzeBellville Medical CenterComment on above:Performed By: #### CBCA #### [facility] ([address] [place] [address] VIRMCHC (RBC) [Mass/Vol]34.3 g/oBEaqome88-74ArzPnktrgBellville Medical CenterComment on above:Performed By: #### CBCA #### [facility] ([address] [place] [address] VIRMCV (RBC) [Entitic vol]86 yBXilvtv33-197PfsZnneti Fremont HospitalComment on above:Performed By: #### CBCA #### [facility] ([address] [place] [address] VIRMONOCYTES ABSOLUTE COUNT (10*3/UL) BY AUTOMATED COUNT0.8 10*3/uLNormal0.0-0.9ProBellville Medical CenterComment on above:Performed By: #### CBCA #### [facility] ([address] [place] [address] VIRMONOCYTES RELATIVE PERCENT BY AUTOMATED COUNT8.2 %Normal [facility] Health InstituteComment on above:Performed By: #### CBCA #### [facility] ([address] [place] [address] VIRNEUTROPHILS ABSOLUTE COUNT BY AUTOMATED COUNT7.4 10*3/uL High1.5-6.6ProBellville Medical CenterComment on above:Performed By: #### CBCA #### [facility] ([facility]) [address] [place] [address] VIRNEUTROPHILS RELATIVE PERCENT BY AUTOMATED COUNT71.1 %Normal [facility] Health InstituteComment on above:Performed By: #### CBCA #### [facility] ([facility]) [address] [place] [address] VIRPlatelet mean volume (Bld) [Entitic vol]7.1 fLNormal7-12 ProMLong Beach Memorial Medical CenterComment on above:Performed By: #### CBCA #### [facility] ([facility]) [facility] [place] [address] VIRPlatelets (Bld) [#/Vol]345 10*3/hYFacyno018-346YmwGcggsd Fremont HospitalComment on above:Performed By: #### CBCA #### [facility] ([facility]) [address] [place] [address] [place] [address] VIRRBC COUNT3.94 X10E12/LLow4.1-5.7[facility] Comment on above:Performed By: #### CBCA #### [facility] ([facility]) [address] [place] [address] [place] [address] VIRWBC (Bld) [#/Vol]10.4 10*3/uLNormal4-11Riverview Health InstituteComment on above:Performed By: #### CBCA #### [facility] ([facility]) [address] [place], [place] 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 Finalized by Rj Diaz MD on 07/31/2024 4:24 PMNormalProBellville Medical CenterCT CTA HEADon 34-43-8477GL CTA HEADCT CTA HEAD History: headache, c/o bleed Squamous cell cancer left upper lobe Procedure: CT CTA HEAD Multidetector CT angiogram performed with IV contrast through [place] using 3 -D Maximum intensity [...] from prior study otherwise unremarkable CT angiogram [place]. * If you have high clinical suspicion for occult process such as an infarct consider CT perfusion and brain MRI. Finalized by Rj Diaz MD on 07/31/2024 4:23 PMNormalProBellville Medical CenterPROTIME AND INRon 19-81-4494XOY8.4Najbbh5.9-1.2PCleveland Clinic Akron GeneralComment on above:Performed By: #### PINR #### [facility] ([facility]) [address] [place] [address] [place] [address] VIRPT Coag (PPP) [Time]11.3 sNormal9.8-13.2PCleveland Clinic Akron GeneralComment on above:Performed By: #### PINR #### [facility] ([facility]) [address] [place] [address] [place] [address] VIRTROPONIN I, HIGH SENSITIVITY 0 HOURon 28-51-2606RYRYADEP I, HIGH SENSITIVITY4 ng/LNormal<21ProBellville Medical CenterComment on above: Performed By: #### TNIHS0 ####[facility] ([address] [place] [address] VIRXR CHEST 1 VIEW STROKEon 85-33-8052SO CHEST 1 VIEW STROKEXR CHEST 1 VIEW [...] by Marcin Amaral MD on 07/31/2024 4:20 PMNormalProBellville Medical CenterCNPNon 33-79-3687MDYRNnnftwJsafcnvlj Clinic ClevelandCBC W Auto Differential panel (Bld)on 17-52-4366Xasabyhop (Bld) [#/Vol]0.06 10*3/uLNormal <0.11CCorey Hospital on above:Order Comment: Specimen Type: BLOOD SPECIMENOrdering Facility: [facility] Address:[address] [place], [place] [address]Performed By: #### 52623-8 ####[facility] LABCLIA [id number] [place] [address] Basophils/100 WBC (Bld)0.6 %NormalFairfield Medical Center on above: Order Comment: Specimen Type: BLOOD SPECIMENOrdering Facility: [facility] Address:[address] [place], [place] [address]Performed By: #### 21761- 8 ####[facility] LABCLIA [id number] [place], [place] [address]Uctrgdxmoyoh cell count method Nom (Bld)AutoNormal [facility] on above:Order Comment: Specimen Type: BLOOD SPECIMENOrdering Facility: [facility] Address:[address] [place], [place] [address]Performed By: #### 31534-1 ####[facility] LABCLIA [id number] [place], [place] [address]Nidjawplpku (Bld) [#/Vol]1.41 10*3/uLHigh<0.46[facility] on above: Order Comment: Specimen Type: BLOOD SPECIMENOrdering Facility: [facility] Address:[address] [place], [place] [address]Performed By: #### 83427- 8 ####[facility] LABCLIA [id number] [place], [place] [address]Uadqotiqzqo/100 WBC (Bld)14.6 %NormalFairfield Medical Center on above:Order Comment: Specimen Type: BLOOD SPECIMENOrdering Facility: [facility] Address:[address] [place], [place] [address]Performed By: #### 95599-5 ####[facility] LABCLIA [id number] [place], [place] [address]Ufkexwsiefe distribution width (RBC) [Ratio]14.2 %Oudydu33.5-15.0[facility] on above: Order Comment: Specimen Type: BLOOD SPECIMENOrdering Facility: [facility] Address:[address] [place], [place] [address]Performed By: #### 14150- 8 ####[facility] LABCLIA [id number] [place], [place] [address]Mxcrvfftwo (Bld) [Volume fraction]33.5 %Low39.0-51.0 [facility] on above:Order Comment: Specimen Type: BLOOD SPECIMENOrdering Facility: [facility] Address:[address] [place], [place] [address]Performed By: #### 28757-1 ####[facility] LABIA [id number] [place], [place] [address]Veonlsswjg (Bld) [Mass/Vol]11.4 g/dLLow13.0-17.0[facility] on above:Order Comment: Specimen Type: BLOOD SPECIMENOrdering Facility: [facility] Address:[address] [place], [place] [address]Performed By: #### 27493- 8 ####[facility] LABIA [id number] [place], [place] [address]Aecbruyg granulocytes (Bld) [#/Vol]0.03 10*3/uLNormal <0.10[facility] on above:Order Comment: Specimen Type: BLOOD SPECIMENOrdering Facility: [facility] Address:[address] [place], [place] [address]Performed By: #### 47765-1 ####[facility] LABIA [id number] [place], [place] [address]Onyhsdiz granulocytes/100 WBC (Bld)0.3 %NormalFairfield Medical Center on above: Order Comment: Specimen Type: BLOOD SPECIMENOrdering Facility: [facility] Address:[address] [place], [place] [address]Performed By: #### 63178- 8 ####[facility] LABCLIA [id number] [place], [place] [address]Stxauzgljsl (Bld) [#/Vol]1.39 10*3/uLNormal1.00-4.00 [facility] on above:Order Comment: Specimen Type: BLOOD SPECIMENOrdering Facility: [facility] Address:[address] [place], [place] [address]Performed By: #### 28171-4 ####[facility] LABCLIA [id number] [place], [place] [address]Yyonkcicewg/100 WBC (Bld)14.4 %NormalFairfield Medical Center on above:Order Comment: Specimen Type: BLOOD SPECIMENOrdering Facility: [facility] Address:[address] [place], [place] [address]Performed By: #### 61319-3 ####[facility] LABCLIA [id number] [place], [place] [address]QDW (RBC) [Entitic mass]29.8 umVvzhuq66.0-34.0[facility] on above:Order Comment: Specimen Type: BLOOD SPECIMENOrdering Facility: [facility] Address:[address] [place], [place] [address]Performed By: #### 35035-5 ####[facility] LABCLIA [id number] [place], [place] [address]MRGV (RBC) [Mass/Vol]34.0 g/hRImzhth96.5-36.0[facility] on above: Order Comment: Specimen Type: BLOOD SPECIMENOrdering Facility: [facility] Address:[address] [place], [place] [address]Performed By: #### 74477- 8 ####[facility] LABCLIA [id number] [place], [place] [address]TSJ (RBC) [Entitic vol]87.5 mTBwghoh69.0-100.0[facility] on above:Order Comment: Specimen Type: BLOOD SPECIMENOrdering Facility: [facility] Address:[address] [place], [place] [address]Performed By: #### 41427-5 ####[facility] LABCLIA [id number] [place], [place] [address]Ymeahlkrn (Bld) [#/Vol]0.73 10*3/uLNormal<0.87[facility] on above:Order Comment: Specimen Type: BLOOD SPECIMENOrdering Facility: [facility] Address:[address] [place], [place] [address]Performed By: #### 64922- 8 ####[facility] LABCLIA [id number] [place], [place] [address]Kgfggoiks/100 WBC (Bld)7.5 %NormalFairfield Medical Center on above:Order Comment: Specimen Type: BLOOD SPECIMENOrdering Facility: [facility] Address:[address] [place], [place] [address]Performed By: #### 53632-7 ####[facility] LABIA [id number] [place], [place] [address]Ejlwlhwbjzl (Bld) [#/Vol]6.05 10*3/uLNormal1.45-7.50[facility] on above:Order Comment: Specimen Type: BLOOD SPECIMENOrdering Facility: [facility] Address:[address] [place], [place] [address]Performed By: #### 81007-4 ####[facility] LABCLIA [id number] [place], [place] [address]Bkloulzvgtw/100 WBC (Bld)62.6 %NormalFairfield Medical Center on above:Order Comment: Specimen Type: BLOOD SPECIMENOrdering Facility: [facility] Address:[address] [place], [place] [address]Performed By: #### 69189-8 ####[facility] LABCLIA [id number] [place], [place] [address]Udgempzgd RBC (Bld) [#/Vol] 10*3/uLNormal<0.01[facility] on above:Order Comment: Specimen Type: BLOOD SPECIMENOrdering Facility: [facility] Address:[address] [place], [place] [address]Performed By: #### 30415-0 ####[facility] LABCLIA [id number] [place], [place] [address]Psmnvomiy RBC/100 WBC (Bld) [Ratio]0.0 /100 WBCNormal [facility] on above:Order Comment: Specimen Type: BLOOD SPECIMENOrdering Facility: [facility] Address:[address] [place], [place] [address]Performed By: #### 38098-5 ####[facility] LABCLIA [id number] [place], [place] [address]Kmbqrvsv mean volume (Bld) [Entitic vol]9.1 fLNormal9.0-12.7CCorey Hospital on above:Order Comment: Specimen Type: BLOOD SPECIMENOrdering Facility: [facility] Address:[address] [place] [address] Performed By: #### 30806-9 ####[facility] LABCLIA [id number] [place], [place] [address]Mjmzvcicw (Bld) [#/Vol]292 10*3/lSYvqgsc048-988CdgixdqveFairfield Medical Center on above:Order Comment: Specimen Type: BLOOD SPECIMENOrdering Facility: [facility] Address:[address] [place], [place] [address]Performed By: #### 19924-8 ####[facility] LABCLIA [id number] [place], [place] [address]UEM (Bld) [#/Vol]3.83 10*6/uLLow4.20-6.00[facility] on above:Order Comment: Specimen Type: BLOOD SPECIMENOrdering Facility: [facility] Address:[address] [place], [place] [address]Performed By: #### 99979-0 ####[facility] LABIA [id number] [place], [place] [address]IAG (Bld) [#/Vol]9.67 10*3/uL Normal3.70-11.00[facility] on above:Order Comment: Specimen Type: BLOOD SPECIMENOrdering Facility: [facility] Address:[address] [place], [place] [address]Performed By: #### 03406-9 ####[facility] LABIA [id number] [place], [place] [address]VLR CBC W AUTO DIFF BLDon 81-71-9316Evdnjzszo/100 WBC (Bld)0.6 %[facility] BASOPHILS # BLD AUTO0.06NIHardin County Medical Center DIFFERENTIAL METHOD BLDAutoNOMUniversity Health Truman Medical Center EOSINOPHIL # BLD AUTO1.41HighNINF [facility] LYMPHOCYTES # BLD AUTO1.39[facility] MONOCYTES # BLD AUTO0.73NIHardin County Medical Center NEUTROPHILS # BLD AUTO6.05[facility] NRBC # BLD AUTO<0.01NIHardin County Medical Center NRBC/100 WBC BLD-RTO0/100 WBCMineral Area Regional Medical Center PLATELET # BLD [id number] Area Regional Medical Center PMV BLD AUTO9.1 fL9.0 - 12.7 fLNOUniversity of Missouri Health Care WBC # BLD AUTO9.67NOSSM Health CareEosinophils/100 WBC (Bld)14.6 %NOMS HealthcareErythrocyte distribution width (RBC) [Ratio]14.2 %11.5 - 15.0 %NOMS HealthcareHematocrit (Bld) [Volume fraction]33.5 %Low39.0 - 51.0 % [facility] HealthHemoglobin (Bld) [Mass/Vol]11.4 g/dLLow13.0 - 17.0 g/dLFreeman Health System GRANULOCYTES # BLD AUTO0.03NINFFreeman Health System GRANULOCYTES/LEUK NFR BLD AUTO0.3 %[facility] HealthInterpretation and review of laboratory resultsAbnormalCrittenton Behavioral HealthLymphocytes/100 WBC (Bld)14.4 %[facility] Rehabilitation Institute of St. LouisH (RBC) [Entitic mass]29.8 pg26.0 - 34.0 pgThe Rehabilitation Institute of St. LouisHC (RBC) [Mass/Vol]34 g/dL30.5 - 36.0 g/dLThe Rehabilitation Institute of St. LouisV (RBC) [Entitic vol]87.5 fL 80.0 - 100.0 fLCrittenton Behavioral HealthMonocytes/100 WBC (Bld)7.5 %[facility] Neutrophils/100 WBC (Bld)62.6 %[facility] HealthRBC (Bld) [#/Vol]3.83 10*6/uLLow 4.20 - 6.00 m/uLSALT LAKE BE[facility] HealthcareSpecimen Type: BLOOD SPECIMEN [facility] Address: [address] [place] [address] Original Ordering Provider: LO SERRATOCrittenton Behavioral HealthCNOVSPon 21-80-1874NTSLLKYqrvdeOpleleklc Clinic ClevelandCNPNon 51-42-4821GGMAXttgom [facility] CenterCT BRAIN WO/W IVCONon 07-20-2024* * *Final Report* * * DATE OF EXAM: Jul 20 2024 3:26PM [facility] 0007 - CT BRAIN WO/W IVCON [...] of the partially visualized orbits, although bilateral circle lens placements are noted on the prior exam. The skull base and imaged soft tissues are unremarkable. Marine Farmer (topogram) images: Noncontributory IMPRESSION: No acute intracranial [...] any questions regarding this interpretation, please call [phone]. If you are unable to reach us at the number above, please feel free to contact [facility] at [phone]. [id number]^AGFA_IDC^SI^ACNCCFRadiology, Radiologist, - 07/20/2024 * * *Final Report* * * DATE OF EXAM: Jul 20 2024 3:26PM [facility] 0007 - CT BRAIN WO/W IVCON [...] of the partially visualized orbits, although bilateral circle lens placements are noted on the prior exam. The skull base and imaged soft tissues are unremarkable. Marine Farmer (topogram) images: Noncontributory IMPRESSION: No acute intracranial [...] any questions regarding this interpretation, please call [phone]. If you are unable to reach us at the number above, please feel free to contact [facility] at [phone]. [id number]^AGFA_IDC^SI^ACN NOMS HealthcareCT BRAIN WO/W IVCONNormalFirelands Regional Medical CenterRadiology Study observation (narrative)NOMS HealthcareCT Head WO and W contrast Landy [id number]: No acute intracranial abnormality. Postoperative and chronic [...] any questions regarding this interpretation, please call [phone]. If you are unable to reach us at the number above, please feel free to contact [facility] at [phone].DIVISION OF RADIOLOGY* * *Final Report* * * DATE OF EXAM: Jul 20 2024 3:26PM [facility] 0007 - CT BRAIN WO/W IVCON [...] of the partially visualized orbits, although bilateral circle lens placements are noted on the prior exam. The skull base and imaged soft tissues are unremarkable. Marine Farmer (topogram) images: Noncontributory DIVISION OF RADIOLOGYProvider, [facility] [place] - 07/20/2024 * * *Final Report* * * DATE OF EXAM: Jul 20 2024 3:26PM [facility] 0007 - CT BRAIN WO/W IVCON [...] of the partially visualized orbits, although bilateral circle lens placements are noted on the prior exam. The skull base and imaged soft tissues are unremarkable. Marine Farmer (topogram) images: Noncontributory IMPRESSION IMPRESSION: No acute [...] any questions regarding this interpretation, please call [phone]. If you are unable to reach us at the number above, please feel free to contact [facility] eRadiology at [phone]. [facility] HospitalRadiology Study observation (narrative)[facility] Comprehensive metabolic 2000 panelon 21-56-2965Vemrcvs [Mass/Vol]4.4 g/dLNormal 3.9-4.9CCorey Hospital on above:Order Comment: Specimen Type: BLOOD SPECIMENOrdering Facility: [facility] Address:[address] [place], [place] [address]Performed By: #### 12171-5 ####[facility] LABCLIA [id number] [place], [place] [address]COM [Catalytic activity/Vol]96 U/LRoloay22-451MboelefbsFairfield Medical Center on above:Order Comment: Specimen Type: BLOOD SPECIMENOrdering Facility: [facility] Address:[address] [place], [place] [address]Performed By: #### 04405-1 ####[facility] LABCLIA [id number] [facility] HOSPITALMARIALUISA [place], [place] [address]RKK [Catalytic activity/Vol]15 U/QOwsydh45-53JxvnyucckFairfield Medical Center on above:Order Comment: Specimen Type: BLOOD SPECIMENOrdering Facility: [facility] Address:[address] [place], [place] [address]Performed By: #### 83522-5 ####[facility] LABCLIA [id number] [place], [place] [address]Uwsqh gap [Moles/Vol]11 mmol/LNormal8-15[facility] on above:Order Comment: Specimen Type: BLOOD SPECIMENOrdering Facility: [facility] Address:[address] [place], [place] [address]Performed By: #### 48952- 8 ####[facility] LABCLIA [id number] [facility] [place], [place] [address]NCV [Catalytic activity/Vol]16 U/YGjklif80-40NkowmzfonFairfield Medical Center on above:Order Comment: Specimen Type: BLOOD SPECIMENOrdering Facility: [facility] Address:[address] [place], [place] [address]Performed By: #### 13748-6 ####[facility] LABCLIA [id number] [facility] [place], [place] [address]Anlpohqiv [Mass/Vol]0.3 mg/dLNormal0.2-1.3CCorey Hospital on above:Order Comment: Specimen Type: BLOOD SPECIMENOrdering Facility: [facility] Address:[address] [place], [place] [address]Performed By: #### 56622- 8 ####[facility] LABCLIA [id number] [facility] [place], [place] [address]Ritbzar [Mass/Vol]9.4 mg/dLNormal8.5-10.2CCorey Hospital on above:Order Comment: Specimen Type: BLOOD SPECIMENOrdering Facility: [facility] Address:[address] [place], [place] [address]Performed By: #### 97527-0 ####[facility] LABCLIA [id number] [place], [place] [address]Wbpldjgk [Moles/Vol]104 mmol/L Uddkar64-293HtrrqnlndFairfield Medical Center on above:Order Comment: Specimen Type: BLOOD SPECIMENOrdering Facility: [facility] Address:[address] [place], [place] [address]Performed By: #### 69779-0 ####[facility] LABCLIA [id number] [place] [address] CO2 [Moles/Vol]28 mmol/CKzkkgj89-22BsdkhcfskFairfield Medical Center on above: Order Comment: Specimen Type: BLOOD SPECIMENOrdering Facility: [facility] Address:[address] [place], [place] [address]Performed By: #### 27299- 8 ####[facility] LABCLIA [id number] [place], [place] [address]Lipsludadt [Mass/Vol]0.64 mg/dLLow0.73-1.22[facility] on above:Order Comment: Specimen Type: BLOOD SPECIMENOrdering Facility: [facility] Address:[address] [place], [place] [address]Performed By: #### 56180-5 ####[facility] LABIA [id number] [place], [place] [address]Dfwmepcuxf and Glomerular filtration rate.predicted panel (S/P/Bld)103 mL/min/1.73m???Normal >=60[facility] on above:Order Comment: Specimen Type: BLOOD SPECIMENOrdering Facility: [facility] Address:[address] [place], [place] [address]Result Comment: Estimated Glomerular Filtration Rate (eGFR) is calculated using the 2020 CKD-EPI creatinine equation. This equation utilizes serum creatinine, sex, and age as parameters. The creatinine assay has traceable calibration to isotope dilution-mass spectrometry. Refer to KDIGO guidelines for clinical interpretation. In patients with unstable renal function, e.g. those with acute kidney injury, the eGFR may not accurately reflect actual GFR.Performed By: #### 47611-0 ####[facility] LABIA [id number] [place], [place] [address]Bsscrnt [Mass/Vol]158 mg/fFGmdj97-01MexdjfbhgFairfield Medical Center on above:Order Comment: Specimen Type: BLOOD SPECIMENOrdering Facility: [facility] Address:[address] [place], [place] [address]Result Comment: The [place] Diabetes Association (ADA) provides guidance for cutoff [...] Standards of Medical Care in Diabetes 2016, [place] Diabetes Association. Diabetes Care. 2016.39(Suppl 1).Performed By: #### 84891-0 ####[facility] LABCLIA [id number] [place], [place] [address]Qoorronhn [Moles/Vol]3.7 mmol/LNormal3.7-5.1CCorey Hospital on above: Order Comment: Specimen Type: BLOOD SPECIMENOrdering Facility: [facility] Address:[address] [place], [place] [address]Arbipcyaj By: #### 31355- 8 ####[facility] LABCLIA [id number] [place], [place] [address]Mfjuzsn [Mass/Vol]6.8 g/dLNormal6.3-8.0[facility] on above:Order Comment: Specimen Type: BLOOD SPECIMENOrdering Facility: [facility] Address:[address] [place] [id number] By: #### 53591-4 ####[facility] LABCLIA [id number] [place], [place] [address]Dskgkq [Moles/Vol]143 mmol/L Ilkiql767-975KodcznnroFairfield Medical Center on above:Order Comment: Specimen Type: BLOOD SPECIMENOrdering Facility: [facility] Address:[address] [place], [place] [address]Performed By: #### 95743-0 ####[facility] LABCLIA [id number] [place] [address] Urea nitrogen [Mass/Vol]10 mg/dLNormal9-24[facility] on above:Order Comment: Specimen Type: BLOOD SPECIMENOrdering Facility: [facility] Address:[address] [place], [place] [address]Performed By: #### 90190-3 ####[facility] LABCLIA [id number] [place], [place] [address]Zeyiar SerPl-mCncon 83-82-5676Tisettlb [Mass/Vol] 11.2 ug/dLNormal4.8-19.5CCorey Hospital on above:Order Comment: Specimen Type: BLOOD SPECIMENOrdering Facility: [facility] Address:[address] [place], [place] [address]Result Comment: Provided reference range is from 6-10 AM sample collection time.Cortisol Reference Range: 6-10 AM = 4.8-19.5 ug/dL, 4-8 PM = 2.5-11.9 ug/dLPerformed By: #### 3016-3, 2143-6 ####[facility] LABCLIA [id number] [place] [address] [place] [facility] Panel InformationOrdered By: Radiologist Radiology on 66-23-1852[employer] Work Phone: TSO SerPl-aCncon 78-07-5525OMB Qn1.160 m[IU]/LNormal 0.270-4.200[facility] on above:Order Comment: Specimen Type: BLOOD SPECIMENOrdering Facility: [facility] Address:[address] [place], [place] [address]Performed By: #### 3016-3, 2143-6 ####[facility] LABCLIA [id number] [facility] [id number] Auto Differential panel (Bld)on 06-29-2024 Basophils (Bld) [#/Vol]0.03 10*3/uLNormal<0.11CCore[facility] Hospital on above:Order Comment: Specimen Type: BLOOD SPECIMENOrdering Facility: [facility] Address:[address] [place] [address] Performed By: #### 96745-0 ####[facility] LABCLIA [id number] [place], [place] [address]Mpylfcagk/100 WBC (Bld)0.3 % NormalFairfield Medical Center on above:Order Comment: Specimen Type: BLOOD SPECIMENOrdering Facility: [facility] Address:[address] [place], [place] [address]Performed By: #### 72950-2 ####[facility] LABCLIA [id number] [place] [address] Differential cell count method Nom (Bld)AutoNormalCKeenan Private Hospital Comment on above:Order Comment: Specimen Type: BLOOD SPECIMENOrdering Facility: [facility] Address:[address] [place] [address] Performed By: #### 37790-0 ####[facility] LABCLIA [id number] [place], [place] [address]Dbkjcmkozyu (Bld) [#/Vol]1.38 10*3/uLHigh<0.46[facility] on above:Order Comment: Specimen Type: BLOOD SPECIMENOrdering Facility: [facility] Address:[address] [place], [place] [address]Performed By: #### 76459-2 ####[facility] LABCLIA [id number] [place], [place] [address]Ccbcnsnyigt/100 WBC (Bld)14.7 %NormalFairfield Medical Center on above:Order Comment: Specimen Type: BLOOD SPECIMENOrdering Facility: [facility] Address:[address] [place], [place] [address]Performed By: #### 78543-3 ####[facility] LABIA [id number] [place], [place] [address]Nupjzjmgfpe distribution width (RBC) [Ratio]14.5 %Yhfnvs27.5-15.0[facility] on above: Order Comment: Specimen Type: BLOOD SPECIMENOrdering Facility: [facility] Address:[address] [place], [place] [address]Performed By: #### 31597- 8 ####[facility] LABIA [id number] [place], [place] [address]Umkjfiiukq (Bld) [Volume fraction]35.3 %Low39.0-51.0 [facility] on above:Order Comment: Specimen Type: BLOOD SPECIMENOrdering Facility: [facility] Address:[address] [place], [place] [address]Performed By: #### 98621-6 ####[facility] LABIA [id number] [place], [place] [address]Lnehmjbztg (Bld) [Mass/Vol]11.8 g/dLLow13.0-17.0[facility] on above:Order Comment: Specimen Type: BLOOD SPECIMENOrdering Facility: [facility] Address:[address] [place], [place] [address]Performed By: #### 28287- 8 ####[facility] LABIA [id number] [place], [place] [address]Febavrao granulocytes (Bld) [#/Vol]0.07 10*3/uLNormal <0.10[facility] on above:Order Comment: Specimen Type: BLOOD SPECIMENOrdering Facility: [facility] Address:[address] [place], [place] [address]Performed By: #### 60590-2 ####[facility] LABCLIA [id number] [place], [place] [address]Qjdssspx granulocytes/100 WBC (Bld)0.7 %NormalFairfield Medical Center on above: Order Comment: Specimen Type: BLOOD SPECIMENOrdering Facility: [facility] Address:[address] [place], [place] [address]Performed By: #### 49803- 8 ####[facility] LABCLIA [id number] [place], [place] [address]Wmuxzsksond (Bld) [#/Vol]1.46 10*3/uLNormal1.00-4.00 [facility] on above:Order Comment: Specimen Type: BLOOD SPECIMENOrdering Facility: [facility] Address:[address] [place], [place] [address]Performed By: #### 86183-9 ####[facility] LABIA [id number] [place], [place] [address]Fpjxgxycpeg/100 WBC (Bld)15.6 %NormalFairfield Medical Center on above:Order Comment: Specimen Type: BLOOD SPECIMENOrdering Facility: [facility] Address:[address] [place], [place] [address]Performed By: #### 57103-7 ####[facility] LABIA [id number] [place], [place] [address]KWP (RBC) [Entitic mass]29.4 gxKzbwws85.0-34.0[facility] on above:Order Comment: Specimen Type: BLOOD SPECIMENOrdering Facility: [facility] Address:[address] [place], [place] [address]Performed By: #### 83262-8 ####[facility] LABCLIA [id number] [place], [place] [address]OLUH (RBC) [Mass/Vol]33.4 g/zYRezmjm55.5-36.0[facility] on above: Order Comment: Specimen Type: BLOOD SPECIMENOrdering Facility: [facility] Address:[address] [place], [place] [address]Performed By: #### 69930- 8 ####[facility] LABCLIA [id number] [place], [place] [address]HHC (RBC) [Entitic vol]88.0 hAXxrdch69.0-100.0[facility] on above:Order Comment: Specimen Type: BLOOD SPECIMENOrdering Facility: [facility] Address:[address] [place], [place] [address]Performed By: #### 43373-5 ####[facility] LABIA [id number] [place], [place] [address]Buftjiesy (Bld) [#/Vol]0.93 10*3/uLHigh<0.87[facility] on above:Order Comment: Specimen Type: BLOOD SPECIMENOrdering Facility: [facility] Address:[address] [place], [place] [address]Performed By: #### 48795- 8 ####[facility] LABCLIA [id number] [place], [place] [address]Bxammlkmu/100 WBC (Bld)9.9 %NormalFairfield Medical Center on above:Order Comment: Specimen Type: BLOOD SPECIMENOrdering Facility: [facility] Address:[address] [place], [place] [address]Performed By: #### 37517-2 ####[facility] LABIA [id number] [place], [place] [address]Gunogjaigad (Bld) [#/Vol]5.51 10*3/uLNormal1.45-7.50[facility] on above:Order Comment: Specimen Type: BLOOD SPECIMENOrdering Facility: [facility] Address:[address] [place], [place] [address]Performed By: #### 30037-3 ####[facility] LABCLIA [id number] [place], [place] [address]Qiipspuwsix/100 WBC (Bld)58.8 %NormalFairfield Medical Center on above:Order Comment: Specimen Type: BLOOD SPECIMENOrdering Facility: [facility] Address:[address] [place], [place] [address]Performed By: #### 43906-4 ####[facility] LABCLIA [id number] [place], [place] [address]Uzcmnlnns RBC (Bld) [#/Vol] 10*3/uLNormal<0.01[facility] on above:Order Comment: Specimen Type: BLOOD SPECIMENOrdering Facility: [facility] Address:[address] [place], [place] [address]Performed By: #### 06168-6 ####[facility] LABCLIA [id number] [place], [place] [address]Rxpchejtr RBC/100 WBC (Bld) [Ratio]0.0 /100 WBCNormal [facility] on above:Order Comment: Specimen Type: BLOOD SPECIMENOrdering Facility: [facility] Address:[address] [place], [place] [address]Performed By: #### 85236-2 ####[facility] LABIA [id number] [place], [place] [address]Eqqgtvmp mean volume (Bld) [Entitic vol]9.7 fLNormal9.0-12.7CCorey Hospital on above:Order Comment: Specimen Type: BLOOD SPECIMENOrdering Facility: [facility] Address:[address] [place] [address] Performed By: #### 61734-5 ####[facility] LABCLIA [id number] [place], [place] [address]Zeseshhky (Bld) [#/Vol]252 10*3/jJFuoxyo599-033UklavvoxzFairfield Medical Center on above:Order Comment: Specimen Type: BLOOD SPECIMENOrdering Facility: [facility] Address:[address] [place], [place] [address]Performed By: #### 17315-4 ####[facility] LABCLIA [id number] [place], [place] [address]SRZ (Bld) [#/Vol]4.01 10*6/uLLow4.20-6.00[facility] on above:Order Comment: Specimen Type: BLOOD SPECIMENOrdering Facility: [facility] Address:[address] [place], [place] [address]Performed By: #### 16211-1 ####[facility] LABIA [id number] [place], [place] [address]BHZ (Bld) [#/Vol]9.38 10*3/uL Normal3.70-11.00[facility] on above:Order Comment: Specimen Type: BLOOD SPECIMENOrdering Facility: [facility] Address:[address] [place], [place] [address]Performed By: #### 59341-0 ####[facility] LABCLIA [id number] [place], [place] [address]OLX CBC W AUTO DIFF BLDon 74-14-3503Eovidcovu/100 WBC (Bld)0.3 %NOMS HealthcareCCF BASOPHILS # BLD AUTO0.03NINFNOMS HealthcareCCF DIFFERENTIAL METHOD BLDAutoNOMS HealthcareCCF EOSINOPHIL # BLD AUTO1.38HighNINF N[facility] HealthcareCCF LYMPHOCYTES # BLD AUTO1.46N[facility] HealthcareCCF MONOCYTES # BLD AUTO0.93HighNINFNOMS HealthcareCCF NEUTROPHILS # BLD AUTO5.51NOM[facility] HealthcareCCF NRBC # BLD AUTO<0.01NINFMineral Area Regional Medical Center NRBC/100 WBC BLD-RTO0/100 WBCMineral Area Regional Medical Center PLATELET # BLD [id number] Area Regional Medical Center PMV BLD AUTO9.7 fL9.0 - 12.7 fLMineral Area Regional Medical Center WBC # BLD AUTO9.38NOSSM Health CareEosinophils/100 WBC (Bld)14.7 %[facility] HealthErythrocyte distribution width (RBC) [Ratio]14.5 %11.5 - 15.0 %[facility] HealthHematocrit (Bld) [Volume fraction]35.3 %Low39.0 - 51.0 % [facility] HealthHemoglobin (Bld) [Mass/Vol]11.8 g/dLLow13.0 - 17.0 g/dLFreeman Health System GRANULOCYTES # BLD AUTO0.07NILincoln County Health System GRANULOCYTES/LE[place] NFR BLD AUTO0.7 %[facility] HealthInterpretation and review of laboratory resultsAbrmRiddle HospitalLymphocytes/100 WBC (Bld)15.6 %[facility] LouisH (RBC) [Entitic mass]29.4 pg26.0 - 34.0 pgThe Rehabilitation Institute of St. LouisHC (RBC) [Mass/Vol]33.4 g/dL30.5 - 36.0 g/dLThe Rehabilitation Institute of St. LouisV (RBC) [Entitic vol]88 fL 80.0 - 100.0 fLCrittenton Behavioral HealthMonocytes/100 WBC (Bld)9.9 %[facility] Neutrophils/100 WBC (Bld)58.8 %[facility] HealthRBC (Bld) [#/Vol]4.01 10*6/uLLow 4.20 - 6.00 m/uLSALT LAKE [facility] HealthcareSpecimen Type: BLOOD SPECIMEN Ordering Facility: [facility] Address: [address] [place] [address] Original Ordering Provider: LO SERRATOCrittenton Behavioral HealthComprehensive metabolic 2000 panelon [id number] [Mass/Vol]4.2 g/dLNormal3.9-4.9 [facility] CenterComhenry [facility] on above:Order Comment: Specimen Type: BLOOD SPECIMENOrdering Facility: [facility] Address:[address], [place] [address]Performed By: #### 25389-6 ####[facility]PITALMARIB[facility] LABCLIA [id number] [place] [address]APM [Catalytic activity/Vol]88 U/IExuewr35-806EiiycbwvsFairfield Medical Center on above:Order Comment: Specimen Type: BLOOD SPECIMENOrdering Facility: [facility] Address:[address] [place], [place] [address]Performed By: #### 69882- 8 ####[facility] LABCLIA [id number] [place] COTTONBARROW [facility] [place] [address]VAQ [Catalytic activity/Vol]27 U/WKiayzy57-26PlfbravnfFairfield Medical Center on above:Order Comment: Specimen Type: BLOOD SPECIMENOrdering Facility: [facility] Address:[address] [place], [place] [address]Performed By: #### 67164-5 ####[facility] LABCLIA [id number] ERNIE JEROMERENEBARROW NEUROLOGICAL INSTITUTETANY[place], [place] [address]Kcywl gap [Moles/Vol]11 mmol/LNormal8-15[facility] on above:Order Comment: Specimen Type: BLOOD SPECIMENOrdering Facility: [facility] Address:[address] [place], [place] [address]Performed By: #### 26747- 8 ####[facility] LABCLIA [id number] [place] COTTONBARROW [place] [address]RES [Catalytic activity/Vol]24 U/OZaaoqd13-06SpnxxvdpeFairfield Medical Center on above:Order Comment: Specimen Type: BLOOD SPECIMENOrdering Facility: [facility] Address:[address] [place], [place] [address]Performed By: #### 43761-1 ####[facility] LABCLIA [id number] LLOYD BANKSBARROW NEUROLOGICAL INSTITUTETESS[place], [place] [address]Usgqdnzem [Mass/Vol]0.4 mg/dLNormal0.2-1.3CCorey Hospital on above:Order Comment: Specimen Type: BLOOD SPECIMENOrdering Facility: [facility] Address:[address] [place], [place] [address]Performed By: #### 83748- 8 ####[facility] LABCLIA [id number] [facility] [place], [place] [address]Xyjcvuh [Mass/Vol]10.0 mg/dLNormal8.5-10.2CCorey Hospital on above:Order Comment: Specimen Type: BLOOD SPECIMENOrdering Facility: [facility] Address:[address] [place], [place] [address]Performed By: #### 35189-5 ####[facility] LABCLIA [id number] [place], [place] [address]Paiiebtu [Moles/Vol]96 mmol/PRly12-562QhbriffltFairfield Medical Center on above:Order Comment: Specimen Type: BLOOD SPECIMENOrdering Facility: [facility] Address:[address] [place], [place] [address]Performed By: #### 35955- 8 ####[facility] LABCLIA [id number] [place], [place] [address]PD5 [Moles/Vol]31 mmol/EAqmy58-62EdxynblxbFairfield Medical Center on above:Order Comment: Specimen Type: BLOOD SPECIMENOrdering Facility: [facility] Address:[address] [place], [place] [address]Performed By: #### 72450-2 ####[facility] LABCLIA [id number] [place], [place] [address]Sunbpgpexu [Mass/Vol]0.79 mg/dL Normal0.73-1.22[facility] on above:Order Comment: Specimen Type: BLOOD SPECIMENOrdering Facility: [facility] Address:[address] [place], [place] [address]Performed By: #### 05982-4 ####[facility] LABCLIA [id number] [place], [place] [address]Nrpoxgnbum and Glomerular filtration rate.predicted panel (S/P/Bld)97 mL/min/1.73m???Normal>=60[facility] on above:Order Comment: Specimen Type: BLOOD SPECIMENOrdering Facility: [facility] Address:[address] [place], [place] [address]Result Comment: Estimated Glomerular Filtration Rate (eGFR) is [...] not accurately reflect actual GFR.Performed By: #### 06320-8 ####[facility] LABCLIA [id number] [place], [place] [address]Zfuivys [Mass/Vol]155 mg/xPKasp14-71ArdtgkclkFairfield Medical Center on above:Order Comment: Specimen Type: BLOOD SPECIMENOrdering Facility: [facility] Address:[address] [place], [place] [address]Result Comment: The [place] Diabetes Association (ADA) provides guidance for cutoff [...] Standards of Medical Care in Diabetes 2016, [place] Diabetes Association. Diabetes Care. 2016.39(Suppl 1).Performed By: #### 18185-8 ####[facility] LABCLIA [id number] [place], [place] [address]Xdkxbfnal [Moles/Vol]3.8 mmol/LNormal3.7-5.1CCorey Hospital on above:Order Comment: Specimen Type: BLOOD SPECIMENOrdering Facility: [facility] Address:[address] [place], [place] [address]Performed By: #### 15733-1 ####[facility] LABCLIA [id number] [place], [place] [address]Rerlrjm [Mass/Vol]6.9 g/dLNormal6.3-8.0[facility] on above:Order Comment: Specimen Type: BLOOD SPECIMENOrdering Facility: [facility] Address:[address] [place], [place] [address]Performed By: #### 02910- 8 ####[facility] LABCLIA [id number] [place], [place] [address]Hnpkbt [Moles/Vol]138 mmol/EMpavdk147-265EnvmnssceFairfield Medical Center on above:Order Comment: Specimen Type: BLOOD SPECIMENOrdering Facility: [facility] Address:[address] [place], [place] [address]Performed By: #### 90707-5 ####[facility] LABCLIA [id number] [place], [place] [address]Loys nitrogen [Mass/Vol]19 mg/dLNormal9-24[facility] on above:Order Comment: Specimen Type: BLOOD SPECIMENOrdering Facility: [facility] Address:[address] [place], [place] [address]Performed By: #### 41033-9 ####[facility] LABCLIA [id number] [place], [place] [address]Ngblvc SerPl-mCncon 57-71-8090Fynhhjvn [Mass/Vol]4.0 ug/dLLow4.8-19.5CCorey Hospital on above:Order Comment: Specimen Type: BLOOD SPECIMENOrdering Facility: [facility] Address:[address] [place], [place] [address]Result Comment: Provided reference range is from 6-10 AM sample collection time.Cortisol Reference Range: 6-10 AM = 4.8-19.5 ug/dL, 4-8 PM = 2.5-11.9 ug/dLPerformed By: #### 2143-6, 3016-3 ####[facility] [id number] [place] [id number] [facility] HOSPITALHbA1c (Bld)on 94-06-0762Cfcyoih glucose Estimated from glycated hemoglobin (Bld) [Mass/Vol]117 mg/dLNormal [facility] on above:Order Comment: Specimen Type: BLOOD SPECIMENOrdering Facility: [facility] Address:[address] [place], [place] [address]Result Comment: eAG: (Estimated average glucose) is a calculated value from HgbA1c and is assisted sales representative of the average blood glucose level in the last 2-3 month period.Performed By: #### 35084-6 ####[facility] [id number]ETHbA1c (Bld) [Mass fraction]5.7 %High4.3-5.6 [facility] on above:Order Comment: Specimen Type: BLOOD SPECIMENOrdering Facility: [facility] Address:[address] [place], [place] [address]Result Comment: [place] Diabetes Association guidelines indicate that patients with HgbA1c in the range 5.7-6.4% are at increased risk for development of diabetes, and intervention by lifestyle modification may be beneficial. HgbA1c greater or equal to 6.5% is considered diagnostic of diabetes.Performed By: #### 16542-6 ####[facility] [id number] [place] [id number] [facility] TSH SerPl-aCncon 33-26-3480EGY Qn0.571 m[IU]/LNormal0.270-4.200[facility] on above:Order Comment: Specimen Type: BLOOD SPECIMENOrdering Facility: [facility] Address:[address] [place], [place] [address]Performed By: #### 2143-6, 3016-3 ####[facility] LABCLIA [id number] [address] [place] CBC W Auto Differential panel (Bld)on 99-45-5242Gwcdqxfzb (Bld) [#/Vol]0.04 10*3/uLNormal<0.11CCorey Hospital on above:Order Comment: Specimen Type: BLOOD SPECIMENOrdering Facility: [facility] Address:[address] [place], [place] [address]Performed By: #### 28231-5 ####[facility] LABCLIA [id number] [place], [place] [address]Swfymnskj/100 WBC (Bld)0.5 %NormalFairfield Medical Center on above:Order Comment: Specimen Type: BLOOD SPECIMENOrdering Facility: [facility] Address:[address] [place], [place] [address]Performed By: #### 73412-1 ####[facility] LABIA [id number] [place], [place] [address]Rsrnhqpseglq cell count method Nom (Bld)AutoNormalClevelSelect Medical Specialty Hospital - [facility]on on above:Order Comment: Specimen Type: BLOOD SPECIMENOrdering Facility: [facility] Address:[address] [place], [place] [address]Performed By: #### 74605-4 ####[facility] LABCLIA [id number] [place], [place] [address]Eiitmhmhhfi (Bld) [#/Vol]1.72 10*3/uLHigh<0.46[facility] on above:Order Comment: Specimen Type: BLOOD SPECIMENOrdering Facility: [facility] Address:[address] [place], [place] [address]Performed By: #### 64004-5 ####[facility] LABIA [id number] [place], [place] [address]Lzvpiqmpieg/100 WBC (Bld)22.5 %NormalFairfield Medical Center on above:Order Comment: Specimen Type: BLOOD SPECIMENOrdering Facility: [facility] Address:[address] [place], [place] [address]Performed By: #### 56661-7 ####[facility] LABCLIA [id number] [place], [place] [address]Wzxiavmsptd distribution width (RBC) [Ratio]14.6 %Normal 11.5-15.0[facility] on above:Order Comment: Specimen Type: BLOOD SPECIMENOrdering Facility: [facility] Address:[address] [place], [place] [address]Performed By: #### 53414-6 ####[facility] LABCLIA [id number] [place] [address] Hematocrit (Bld) [Volume fraction]35.6 %Low39.0-51.0[facility] Comment on above:Order Comment: Specimen Type: BLOOD SPECIMENOrdering Facility: [facility] Address:[address] [place] [address] Performed By: #### 71625-6 ####[facility] LABCLIA [id number] [place], [place] [address]Zfcanhgnfp (Bld) [Mass/Vol]11.9 g/dLLow13.0-17.0[facility] on above:Order Comment: Specimen Type: BLOOD SPECIMENOrdering Facility: [facility] Address:[address] [place], [place] [address]Performed By: #### 61717-1 ####[facility] LABIA [id number] [place], [place] [address]Rwyfksvu granulocytes (Bld) [#/Vol]0.03 10*3/uLNormal <0.10[facility] on above:Order Comment: Specimen Type: BLOOD SPECIMENOrdering Facility: [facility] Address:[address] [place], [place] [address]Performed By: #### 84466-4 ####[facility] LABCLIA [id number] [place], [place] [address]Fbktqjbv granulocytes/100 WBC (Bld)0.4 %NormalFairfield Medical Center on above: Order Comment: Specimen Type: BLOOD SPECIMENOrdering Facility: [facility] Address:[address] [place], [place] [address]Performed By: #### 76707- 8 ####[facility] LABCLIA [id number] [place], [place] [address]Fvnlkvkmbly (Bld) [#/Vol]1.47 10*3/uLNormal1.00-4.00 [facility] on above:Order Comment: Specimen Type: BLOOD SPECIMENOrdering Facility: [facility] Address:[address] [place], [place] [address]Performed By: #### 26843-0 ####[facility] LABIA [id number] [place], [place] [address]Cuvsmvzfuwu/100 WBC (Bld)19.2 %NormalFairfield Medical Center on above:Order Comment: Specimen Type: BLOOD SPECIMENOrdering Facility: [facility] Address:[address] [place], [place] [address]Performed By: #### 70465-9 ####[facility] LABCLIA [id number] [place], [place] [address]IMV (RBC) [Entitic mass]29.4 chTkikpw75.0-34.0[facility] on above:Order Comment: Specimen Type: BLOOD SPECIMENOrdering Facility: [facility] Address:[address] [place], [place] [address]Performed By: #### 86110-4 ####[facility] LABIA [id number] [place], [place] [address]KHGU (RBC) [Mass/Vol]33.4 g/sGQlqwuy00.5-36.0[facility] on above: Order Comment: Specimen Type: BLOOD SPECIMENOrdering Facility: [facility] Address:[address] [place], [place] [address]Performed By: #### 97962- 8 ####[facility] LABCLIA [id number] [place], [place] [address]DGI (RBC) [Entitic vol]87.9 tHVylerp68.0-100.0[facility] on above:Order Comment: Specimen Type: BLOOD SPECIMENOrdering Facility: [facility] Address:[address] [place], [place] [address]Performed By: #### 74204-1 ####[facility] LABCLIA [id number] [place], [place] [address]Tsetsphne (Bld) [#/Vol]0.58 10*3/uLNormal<0.87[facility] on above:Order Comment: Specimen Type: BLOOD SPECIMENOrdering Facility: [facility] Address:[address] [place], [place] [address]Performed By: #### 90958- 8 ####[facility] LABCLIA [id number] [place], [place] [address]Hcapfkicj/100 WBC (Bld)7.6 %NormalFairfield Medical Center on above:Order Comment: Specimen Type: BLOOD SPECIMENOrdering Facility: [facility] Address:[address] [place], [place] [address]Performed By: #### 47172-4 ####[facility] LABIA [id number] [place], [place] [address]Adrhpplgwle (Bld) [#/Vol]3.81 10*3/uLNormal1.45-7.50[facility] on above:Order Comment: Specimen Type: BLOOD SPECIMENOrdering Facility: [facility] Address:[address] [place], [place] [address]Performed By: #### 24131-1 ####[facility] LABCLIA [id number] [place], [place] [address]Cslzyfbuzjs/100 WBC (Bld)49.8 %NormalFairfield Medical Center on above:Order Comment: Specimen Type: BLOOD SPECIMENOrdering Facility: [facility] Address:[address] [place], [place] [address]Performed By: #### 10127-1 ####[facility] LABCLIA [id number] [place], [place] [address]Jjgvygpkt RBC (Bld) [#/Vol] 10*3/uLNormal<0.01[facility] on above:Order Comment: Specimen Type: BLOOD SPECIMENOrdering Facility: [facility] Address:[address] [place], [place] [address]Performed By: #### 69629-6 ####[facility] LABCLIA [id number] [place], [place] [address]Pywfrkftw RBC/100 WBC (Bld) [Ratio]0.0 /100 WBCNormal [facility] on above:Order Comment: Specimen Type: BLOOD SPECIMENOrdering Facility: [facility] Address:[address] [place], [place] [address]Performed By: #### 33710-1 ####[facility] LABIA [id number] [place], [place] [address]Qqydvinm mean volume (Bld) [Entitic vol]9.6 fLNormal9.0-12.7CCorey Hospital on above:Order Comment: Specimen Type: BLOOD SPECIMENOrdering Facility: [facility] Address:[address] [place] [address] Performed By: #### 32308-5 ####[facility] LABCLIA [id number] [place], [place] [address]Qcpjiswnw (Bld) [#/Vol]235 10*3/rEQgrjnd960-993SaltqfcgdFairfield Medical Center on above:Order Comment: Specimen Type: BLOOD SPECIMENOrdering Facility: [facility] Address:[address] [place], [place] [address]Performed By: #### 07276-3 ####[facility] HOSPITALMARIBEL [facility] LABCLIA [id number] [place], [place] [address]DBS (Bld) [#/Vol]4.05 10*6/uLLow4.20-6.00[facility] on above:Order Comment: Specimen Type: BLOOD SPECIMENOrdering Facility: [facility] Address:[address] [place], [place] [address]Performed By: #### 04693-9 ####[facility] LABCLIA [id number] [place], [place] [address]CBZ (Bld) [#/Vol]7.65 10*3/uL Normal3.70-11.00[facility] on above:Order Comment: Specimen Type: BLOOD SPECIMENOrdering Facility: [facility] Address:[address] [place], [place] [address]Performed By: #### 61186-8 ####[facility] LABCLIA [id number] [place], [place] [address]DRB CBC W AUTO DIFF BLDon 42-09-8272Wcbbjtlup/100 WBC (Bld)0.5 %[facility] BASOPHILS # BLD AUTO0.04NINFMineral Area Regional Medical Center DIFFERENTIAL METHOD BLDAutoNOMS [facility] EOSINOPHIL # BLD AUTO1.72HighNINF [facility] LYMPHOCYTES # BLD AUTO1.47NOUniversity of Missouri Health Care MONOCYTES # BLD AUTO0.58NIHardin County Medical Center NEUTROPHILS # BLD AUTO3.81NOUniversity of [facility] NRBC # BLD AUTO<0.01NIHardin County Medical Center NRBC/100 WBC BLD-RTO0/100 WBCMineral Area Regional Medical Center PLATELET # BLD QTDP191UBPJUniversity of [place] Health Care PMV BLD AUTO9.6 fL9.0 - 12.7 fLNOMS HealthcareCCF WBC # BLD AUTO7.65NOSSM Health CareEosinophils/100 WBC (Bld)22.5 %[facility] HealthErythrocyte distribution width (RBC) [Ratio]14.6 %11.5 - 15.0 %[facility] HealthHematocrit (Bld) [Volume fraction]35.6 %Low39.0 - 51.0 % [facility] HealthHemoglobin (Bld) [Mass/Vol]11.9 g/dLLow13.0 - 17.0 g/dLSaint Francis Medical CenterM GRANULOCYTES # BLD AUTO0.03NINFFreeman Health System GRANULOCYTES/LEUK NFR BLD AUTO0.4 %[facility] HealthInterpretation and review of laboratory resultsAbnormalCrittenton Behavioral HealthLymphocytes/100 WBC (Bld)19.2 %[facility] HealthMCH (RBC) [Entitic mass]29.4 pg26.0 - 34.0 pgThe Rehabilitation Institute of St. LouisHC (RBC) [Mass/Vol]33.4 g/dL30.5 - 36.0 g/dLThe Rehabilitation Institute of St. LouisV (RBC) [Entitic vol]87.9 fL 80.0 - 100.0 fLCrittenton Behavioral HealthMonocytes/100 WBC (Bld)7.6 %[facility] Neutrophils/100 WBC (Bld)49.8 %[facility] HealthRBC (Bld) [#/Vol]4.05 10*6/uLLow 4.20 - 6.00 m/uLSALT LAKE [facility] HealthcareSpecimen Type: BLOOD SPECIMEN [facility] Address: [address] [place], [place] [address] Original Ordering Provider: LO MOREIRAUT HealthcareCNOVon 19-90-9184USTFKanwvnBzrpkkemt Clinic PiermontCNOVNormalCflower hospitaland Clinic Clechillicothe hospitalCNOVSPon 15-66-1687JAPJZFBycvjvSxgbaison Select Specialty HospitalComprehensive metabolic 2000 panelon 86-86-9415Zsgkqop [Mass/Vol]4.4 g/dLNormal3.9-4.9 [facility] CenterComment on above:Order Comment: Specimen Type: BLOOD SPECIMENOrdering Facility: [facility] Address:[address] [place] [address]Hgoycijww By: #### 90258-1, 68956-2 ####[facility] LABCLIA [id number] [facility] [place], [place] [address]NKH [Catalytic activity/Vol]81 U/SFtazzd28-876NmfguldkhFairfield Medical Center on above:Order Comment: Specimen Type: BLOOD SPECIMENOrdering Facility: [facility] Address:[address] [place], [place] [address]Performed By: #### 72376-8, 85733-0 ####[facility] LABCLIA [id number] [place], [place] [address]PSU [Catalytic activity/Vol]24 U/LNormal 10-54[facility] on above:Order Comment: Specimen Type: BLOOD SPECIMENOrdering Facility: [facility] Address:[address] [place], [place] [address]Performed By: #### 46614-1, 08024-7 ####[facility] LABCLIA [id number] [place], [place] [address]Rhplt gap [Moles/Vol]11 mmol/LNormal8-15[facility] on above:Order Comment: Specimen Type: BLOOD SPECIMENOrdering Facility: [facility] Address:[address] [place] [address] Performed By: #### 43208-3, 12160-7 ####[facility] LABCLIA [id number] [place], [place] [address]TDV [Catalytic activity/Vol]20 U/FQornrm45-66UuuoimajeFairfield Medical Center on above:Order Comment: Specimen Type: BLOOD SPECIMENOrdering Facility: [facility] Address:[address] [place], [place] [address]Performed By: #### 30262- 9, 80506-3 ####[facility] LABCLIA [id number] [place], [place] [address]Vzbtdqtft [Mass/Vol]0.3 mg/dLNormal0.2-1.3[facility] ClevelandComment on above:Order Comment: Specimen Type: BLOOD SPECIMENOrdering Facility: [facility] Address:[address] [place], [place] [address]Performed By: #### 29888-6, 13220-6 ####[facility] LABCLIA [id number] [place], [place] [address]Dnsqiyn [Mass/Vol]9.8 mg/dLNormal8.5-10.2CCorey Hospital on above: Order Comment: Specimen Type: BLOOD SPECIMENOrdering Facility: [facility] Address:[address] [place], [place] [address]Performed By: #### 17930- 9, 29151-7 ####[facility] LABCLIA [id number] [place], [place] [address]Gpschjpy [Moles/Vol]97 mmol/VLep69-507WobxwebdgFairfield Medical Center on above:Order Comment: Specimen Type: BLOOD SPECIMENOrdering Facility: [facility] Address:[address] [place], [place] [address]Performed By: #### 31129-0, 16283-7 ####[facility] LABCLIA [id number] [place], [place] [address]NY2 [Moles/Vol]31 mmol/XJfam70-11UrlipspogFairfield Medical Center on above:Order Comment: Specimen Type: BLOOD SPECIMENOrdering Facility: [facility] Address:[address] [place], [place] [address]Performed By: #### 05191- 9, 91251-9 ####[facility] LABCLIA [id number] [place], [place] [address]Hxcpujrcti [Mass/Vol]0.98 mg/dLNormal0.73-1.22 [facility] on above:Order Comment: Specimen Type: BLOOD SPECIMENOrdering Facility: [facility] Address:[address] [place], [place] [address]Performed By: #### 89333-6, 23304-4 ####[facility] LABCLIA [id number] [place] [address] Creatinine and Glomerular filtration rate.predicted panel (S/P/Bld)84 mL/min/1.73m???Normal>=60[facility] on above:Order Comment: Specimen Type: BLOOD SPECIMENOrdering Facility: [facility] Address:[address] [place], [place] [address]Result Comment: Estimated Glomerular Filtration Rate (eGFR) is [...] not accurately reflect actual GFR.Performed By: #### 48701-3, 31971-7 ####[facility] LABCLIA [id number] [place], [place] [address]Izubupb [Mass/Vol]155 mg/tODklh32-07EcafggbozFairfield Medical Center on above:Order Comment: Specimen Type: BLOOD SPECIMENOrdering Facility: [facility] Address:[address] [place] [address] Comment: The [place] Diabetes Association (ADA) provides guidance for cutoff [...] Standards of Medical Care in Diabetes 2016, [place] [employer]. Diabetes Care. 2016.39(Suppl 1).Performed By: #### 06121- 9, 33127-3 ####[facility] LABCLIA [id number] [place], [place] [address]Nrwrsijva [Moles/Vol]3.1 mmol/LLow3.7-5.1CCorey Hospital on above:Order Comment: Specimen Type: BLOOD SPECIMENOrdering Facility: [facility] Address:[address] [place], [place] [address]Performed By: #### 17602-9, 67379-9 ####[facility] LABCLIA [id number] [place], [place] [address]Sddhbwr [Mass/Vol]6.7 g/dLNormal6.3-8.0[facility] on above:Order Comment: Specimen Type: BLOOD SPECIMENOrdering Facility: [facility] Address:[address] [place], [place] [address]Performed By: #### 51464- 9, 88571-1 ####[facility] LABIA [id number] [place], [place] [address]Cltvif [Moles/Vol]139 mmol/DAnoycs345-955VfaqvotidFairfield Medical Center on above:Order Comment: Specimen Type: BLOOD SPECIMENOrdering Facility: [facility] Address:[address] [place], [place] [address]Performed By: #### 66011-6, 37379-0 ####[facility] LABIA [id number] [place], [place] [address]Cyoi nitrogen [Mass/Vol]17 mg/dLNormal9-24[facility] on above: Order Comment: Specimen Type: BLOOD SPECIMENOrdering Facility: [facility] Address:[address] [place], [place] [address]Performed By: #### 87424- 9, 72551-1 ####[facility] LABIA [id number] [place], [place] [address]Pifzui SerPl-mCncon [id number] [Mass/Vol] 2.9 ug/dLLow4.8-19.5CCorey Hospital on above:Order Comment: Specimen Type: BLOOD SPECIMENOrdering Facility: [facility] Address:[address] [place] [address]Wfiaey Comment: Provided reference range is from 6-10 AM sample collection time.Cortisol Reference Range: 6-10 AM = 4.8-19.5 ug/dL, 4-8 PM = 2.5-11.9 ug/dLPerformed By: #### 3016-3, 6 ####[facility] LABCLIA [id number] [place] [id number] [place] [facility] HOSPITALMAGNESIUMOrdered By: Evelyn Fraga on [id number] [Mass/Vol]1.9 mg/dL1.7 - 2.3 mg/dLOhio Valley HospitalMagnesium SerPl-mCncon 65-09-3653Tvnvltosu [Mass/Vol]1.9 mg/dLNormal 1.7-2.3CCorey Hospital on above:Order Comment: Specimen Type: BLOOD SPECIMENOrdering Facility: [facility] Address:[address] [place] [address]Mjrmisnby By: #### 37152-6, 80835-6 ####[facility] LABCLIA [id number] [place], [place] [address]Icqmzisxe [Mass/Vol]Ordered By: Evelyn Fraga on 23-92-0977Rtpwlcocuvwjgh and review of laboratory resultsNormalCMarymount Hospital SerPl-aCncon 21-46-1095AXZ Qn1.700 m[IU]/LNormal0.270-4.200[facility] on above:Order Comment: Specimen Type: BLOOD SPECIMENOrdering Facility: [facility] Address:[address] [place] [address]Lkmjugnuo By: #### 3016-3, 6 ####[facility] LABCLIA [id number] [place] [id number] [place] CNCNPATEDon 21-85-9166EPVSSLKDBMszrosHtbdcifvj Clinic ClevelandCNPNon 06-13-2024 CNPNNormalFirelands Regional Medical CenterEmpcornerstone [facility] [place] [facility] Noteon 00-82-5909Izjkeejk Health Yvz[id number]#1.00OTGTIFFDoctors HospitalCNPNon 05-53-8472RIONUclsoqLzfohsahw Clinic ClevelandCB W Auto Differential panel (Bld)on 68-99-4553Iuwnwpazl (Bld) [#/Vol]0.03 10*3/uLNormal <0.11CCorey [facility] on above:Order Comment: Specimen Type: BLOOD SPECIMENOrdering Facility: [facility] Address:[address] [place], [place] [address]Performed By: #### 65981-4 ####[facility] LABCLIA [id number] [place] [address] Basophils/100 WBC (Bld)0.5 %NormalFairfield Medical Center on above: Order Comment: Specimen Type: BLOOD SPECIMENOrdering Facility: [facility] Address:[address] [place], [place] [address]Performed By: #### 74350- 8 ####[facility] LABCLIA [id number] [place], [place] [address]Kkfnlwyqjwqx cell count method Nom (Bld)AutoNormal [facility] on above:Order Comment: Specimen Type: BLOOD SPECIMENOrdering Facility: [facility] Address:[address] [place], [place] [address]Performed By: #### 92535-5 ####[facility] LABIA [id number] [place], [place] [address]Qsqytdrcxej (Bld) [#/Vol]0.44 10*3/uLNormal<0.46[facility] on above: Order Comment: Specimen Type: BLOOD SPECIMENOrdering Facility: [facility] Address:[address] [place], [place] [address]Performed By: #### 50123- 8 ####[facility] LABCLIA [id number] [place], [place] [address]Dangcyvgpso/100 WBC (Bld)7.9 %NormalFairfield Medical Center on above:Order Comment: Specimen Type: BLOOD SPECIMENOrdering Facility: [facility] Address:[address] [place], [place] [address]Performed By: #### 74572-5 ####[facility] LABIA [id number] [place], [place] [address]Tkbhbczcnzb distribution width (RBC) [Ratio]15.0 %Htqsvf34.5-15.0[facility] on above: Order Comment: Specimen Type: BLOOD SPECIMENOrdering Facility: [facility] Address:[address] [place], [place] [address]Performed By: #### 04014- 8 ####[facility] LABIA [id number] [place], [place] [address]Hoxvrrlgwd (Bld) [Volume fraction]35.9 %Low39.0-51.0 [facility] on above:Order Comment: Specimen Type: BLOOD SPECIMENOrdering Facility: [facility] Address:[address] [place], [place] [address]Performed By: #### 23408-6 ####[facility] LABIA [id number] [place], [place] [address]Wdoszkbnxt (Bld) [Mass/Vol]12.2 g/dLLow13.0-17.0[facility] on above:Order Comment: Specimen Type: BLOOD SPECIMENOrdering Facility: [facility] Address:[address] [place], [place] [address]Performed By: #### 71125- 8 ####[facility] LABIA [id number] [place], [place] [address]Ksceczgu granulocytes (Bld) [#/Vol]10*3/uLNormal<0.10 [facility] on above:Order Comment: Specimen Type: BLOOD SPECIMENOrdering Facility: [facility] Address:[address] [place], [place] [address]Performed By: #### 27725-1 ####[facility] LABCLIA [id number] [place], [place] [address]Gwakszdo granulocytes/100 WBC (Bld)0.4 %[facility] on above: Order Comment: Specimen Type: BLOOD SPECIMENOrdering Facility: [facility] Address:[address] [place], [place] [address]Performed By: #### 81247- 8 ####[facility] LABCLIA [id number] [place], [place] [address]Ayzckvdwyyg (Bld) [#/Vol]1.01 10*3/uLNormal1.00-4.00 [facility] on above:Order Comment: Specimen Type: BLOOD SPECIMENOrdering Facility: [facility] Address:[address] [place], [place] [address]Performed By: #### 86188-7 ####[facility] LABIA [id number] [place], [place] [address]Ennfzwjduhs/100 WBC (Bld)18.1 %NormalFairfield Medical Center on above:Order Comment: Specimen Type: BLOOD SPECIMENOrdering Facility: [facility] Address:[address] [place], [place] [address]Performed By: #### 33423-4 ####[facility] LABCLIA [id number] [place], [place] [address]FMZ (RBC) [Entitic mass]29.8 vmMrsrem28.0-34.0[facility] on above:Order Comment: Specimen Type: BLOOD SPECIMENOrdering Facility: [facility] Address:[address] [place], [place] [address]Performed By: #### 62856-4 ####[facility] LABCLIA [id number] [place], [place] [address]EXXZ (RBC) [Mass/Vol]34.0 g/eKClgayy64.5-36.0[facility] on above: Order Comment: Specimen Type: BLOOD SPECIMENOrdering Facility: [facility] Address:[address] [place], [place] [address]Performed By: #### 71236- 8 ####[facility] LABCLIA [id number] [place], [place] [address]CCQ (RBC) [Entitic vol]87.6 nKYqtcpr97.0-100.0[facility] on above:Order Comment: Specimen Type: BLOOD SPECIMENOrdering Facility: [facility] Address:[address] [place], [place] [address]Performed By: #### 37988-7 ####[facility] LABIA [id number] [place], [place] [address]Zxkincjmp (Bld) [#/Vol]0.59 10*3/uLNormal<0.87[facility] on above:Order Comment: Specimen Type: BLOOD SPECIMENOrdering Facility: [facility] Address:[address] [place], [place] [address]Performed By: #### 96444- 8 ####[facility] LABCLIA [id number] [place], [place] [address]Kslddtpdi/100 WBC (Bld)10.6 %NormalFairfield Medical Center on above:Order Comment: Specimen Type: BLOOD SPECIMENOrdering Facility: [facility] Address:[address] [place], [place] [address]Performed By: #### 34763-9 ####[facility] LABIA [id number] [place], [place] [address]Gvayxmpzlsc (Bld) [#/Vol]3.49 10*3/uLNormal1.45-7.50[facility] on above:Order Comment: Specimen Type: BLOOD SPECIMENOrdering Facility: [facility] Address:[address] [place], [place] [address]Performed By: #### 52280-0 ####[facility] LABCLIA [id number] [place], [place] [address]Jnzfmbtssia/100 WBC (Bld)62.5 %NormalFairfield Medical Center on above:Order Comment: Specimen Type: BLOOD SPECIMENOrdering Facility: [facility] Address:[address] [place], [place] [address]Performed By: #### 09350-9 ####[facility] LABCLIA [id number] [place], [place] [address]Ibcabixby RBC (Bld) [#/Vol] 10*3/uLNormal<0.01[facility] on above:Order Comment: Specimen Type: BLOOD SPECIMENOrdering Facility: [facility] Address:[address] [place], [place] [address]Performed By: #### 78959-8 ####[facility] LABCLIA [id number] [place], [place] [address]Lcjbafqrm RBC/100 WBC (Bld) [Ratio]0.0 /100 WBCNormal [facility] on above:Order Comment: Specimen Type: BLOOD SPECIMENOrdering Facility: [facility] Address:[address] [place], [place] [address]Performed By: #### 36792-1 ####[facility] LABCLIA [id number] [place], [place] [address]Iseooshw mean volume (Bld) [Entitic vol]9.4 fLNormal9.0-12.7CC[facility] on above:Order Comment: Specimen Type: BLOOD SPECIMENOrdering Facility: [facility] Address:[address] [place] [address] Performed By: #### 65966-9 ####[facility] LABCLIA [id number] [place], [place] [address]Otkgsrabj (Bld) [#/Vol]205 10*3/aIOabhiw092-778YhwdegdfuFairfield Medical Center on above:Order Comment: Specimen Type: BLOOD SPECIMENOrdering Facility: [facility] Address:[address] [place], [place] [address]Performed By: #### 58648-0 ####[facility] LABCLIA [id number] [place], [place] [address]TJV (Bld) [#/Vol]4.10 10*6/uLLow4.20-6.00[facility] on above:Order Comment: Specimen Type: BLOOD SPECIMENOrdering Facility: [facility] Address:[address] [place], [place] [address]Performed By: #### 66435-4 ####[facility] LABIA [id number] [place], [place] [address]PEJ (Bld) [#/Vol]5.58 10*3/uL Normal3.70-11.00[facility] on above:Order Comment: Specimen Type: BLOOD SPECIMENOrdering Facility: [facility] Address:[address] [place], [place] [address]Performed By: #### 38210-1 ####[facility] LABIA [id number] [place], [place] [address]PPLBVGdm 29-51-5571QUFZHQCvjjggSxbbqgifm [facility] [place] CNPNon 16-81-9254GQHJXiwheySvvjzaayn Clinic ClevelandComprehensive metabolic 2000 panelon 95-45-7469Zolfeah [Mass/Vol]4.5 g/dLNormal3.9-4.9CCore[facility] on above:Order Comment: Specimen Type: BLOOD SPECIMENOrdering Facility: [facility] Address:[address] [place], [place] [address]Performed By: #### 23733-0 ####[facility] LABCLIA [id number] [facility]KSB[facility]OLOG[facility], [place] [address]MUT [Catalytic activity/Vol]67 U/TNcpvgg78-382FppttxsgpFairfield Medical Center on above:Order Comment: Specimen Type: BLOOD SPECIMENOrdering Facility: [facility] Address:[address] [place], [place] [address]Performed By: #### 11242-8 ####[facility] LABCLIA [id number] ERNIE JEROME COTTONB[facility]OW NEUROLOGICAL INSTIT[facility], [place] [address]JSN [Catalytic activity/Vol]24 U/JSfcjcs43-48JvntuikorFairfield Medical Center on above:Order Comment: Specimen Type: BLOOD SPECIMENOrdering Facility: [facility] Address:[address] [place], [place] [address]Performed By: #### 23240-0 ####[facility] LABCLIA [id number] [facility] [place], [place] [address]Tzqch gap [Moles/Vol]11 mmol/LNormal8-15[facility] on above:Order Comment: Specimen Type: BLOOD SPECIMENOrdering Facility: [facility] Address:[address] [place], [place] [address]Performed By: #### 99693- 8 ####[facility]ITALMARIBEL [facility] LABCLIA [id number] [facility], [place] [address]WTA [Catalytic activity/Vol]25 U/FQsswlh37-56ElwmpbrkxFairfield Medical Center on above:Order Comment: Specimen Type: BLOOD SPECIMENOrdering Facility: [facility] Address:[address] [place], [place] [address]Performed By: #### 45855-5 ####[facility] LABIA [id number] [facility] JEROMERENEBARROW NEUROLOGICAL INSTITUTET[place], [place] [address]Tajffegnp [Mass/Vol]0.4 mg/dLNormal0.2-1.3[facility] on above:Order Comment: Specimen Type: BLOOD SPECIMENOrdering Facility: [facility] Address:[address] [place], [place] [address]Performed By: #### 00908- 8 ####[facility] LABCLIA [id number] [place], [place] [address]Dfmlcak [Mass/Vol]9.4 mg/dLNormal8.5-10.2[facility] on above:Order Comment: Specimen Type: BLOOD SPECIMENOrdering Facility: [facility] Address:[address] [place], [place] [address]Performed By: #### 39212-7 ####[facility] LABCLIA [id number] ERNIEDAMMASCH STATE HOSPITALRENEALLAMUCHY, [place] [address]Nwsvfcgp [Moles/Vol]94 mmol/L Nyn07-537JghaqjstzFairfield Medical Center on above:Order Comment: Specimen Type: BLOOD SPECIMENOrdering Facility: [facility] Address:[address] [place], [place] [address]Performed By: #### 13768-9 ####[facility] LABCLIA [id number] [place] [address] CO2 [Moles/Vol]32 mmol/ZYlqh90-67VvkujoybuFairfield Medical Center on above: Order Comment: Specimen Type: BLOOD SPECIMENOrdering Facility: [facility] Address:[address] [place], [place] [address]Performed By: #### 47841- 8 ####[facility] LABCLIA [id number] [place]IE [place], [place] [address]Feokjeozfd [Mass/Vol]0.74 mg/dLNormal0.73-1.22[facility] on above:Order Comment: Specimen Type: BLOOD SPECIMENOrdering Facility: [facility] Address:[address] [place], [place] [address]Performed By: #### 39667-2 ####[facility] LABCLIA [id number] [place], [place] [address]Xzzzxbmwtj and Glomerular filtration rate.predicted panel (S/P/Bld)99 mL/min/1.73m???Normal>=60 [facility] on above:Order Comment: Specimen Type: BLOOD SPECIMENOrdering Facility: [facility] Address:[address] [place], [place] [address]Pfvgjm Comment: Estimated Glomerular Filtration Rate (eGFR) is calculated using the 2020 CKD-EPI creatinine equation. This equation utilizes serum creatinine, sex, and age as parameters. The creatinine assay has traceable calibration to isotope dilution-mass spectrometry. Refer to KDIGO guidelines for clinical interpretation. In patients with unstable renal function, e.g. those with acute kidney injury, the eGFR may not accurately reflect actual GFR.Performed By: #### 41938-0 ####[facility] LABIA [id number] [place], [place] [address]Fnbfekt [Mass/Vol]143 mg/zTCgjq42-91LjtmyiutyFairfield Medical Center on above:Order Comment: Specimen Type: BLOOD SPECIMENOrdering Facility: [facility] Address:[address] [place] [address]Lktcsd Comment: The [place] Diabetes Association (ADA) provides guidance for cutoff [...] Standards of Medical Care in Diabetes 2016, [place] Diabetes Association. Diabetes Care. 2016.39(Suppl 1).Performed By: #### 82782-6 ####[facility] LABIA [id number] [place], [place] [address]Bvdnjsvqa [Moles/Vol]3.2 mmol/LLow3.7-5.1CC[facility] on above:Order Comment: Specimen Type: BLOOD SPECIMENOrdering Facility: [facility] Address:[address] [place], [place] [address]Performed By: #### 29288- 8 ####[facility] LABCLIA [id number] [place], [place] [address]Lpywdto [Mass/Vol]6.4 g/dLNormal6.3-8.0[facility] on above:Order Comment: Specimen Type: BLOOD SPECIMENOrdering Facility: [facility] Address:[address] [place], [place] [address]Performed By: #### 54682-5 ####[facility] LABCLIA [id number] [place], [place] [address]Ofitbu [Moles/Vol]137 mmol/L Qkgryf957-294XelvblnocFairfield Medical Center on above:Order Comment: Specimen Type: BLOOD SPECIMENOrdering Facility: [facility] Address:[address] [place], [place] [address]Performed By: #### 05546-1 ####[facility] LABCLIA [id number] [place] [address] Urea nitrogen [Mass/Vol]15 mg/dLNormal9-24[facility] on above:Order Comment: Specimen Type: BLOOD SPECIMENOrdering Facility: [facility] Address:[address] [place], [place] [address]Performed By: #### 59344-3 ####[facility] LABCLIA [id number] [place], [place] [address]Kfcqjy SerPl-mCncon 00-19-7690Pmnzvits [Mass/Vol]7.1 ug/dLNormal4.8-19.5CC[facility] on above:Order Comment: Specimen Type: BLOOD SPECIMENOrdering Facility: [facility] Address:[address] [place], [place] [address]Result Comment: Provided reference range is from 6-10 AM sample collection time.Cortisol Reference Range: 6-10 AM = 4.8-19.5 ug/dL, 4-8 PM = 2.5-11.9 ug/dLPerformed By: #### 3016-3, 6 ####[facility] LABCLIA [id number] [place] [id number] [facility] HOSPITALHbA1c (Bld)on 47-50-6077Midndry glucose Estimated from glycated hemoglobin (Bld) [Mass/Vol]123 mg/dLNormal [facility] on above:Order Comment: Specimen Type: BLOOD SPECIMENOrdering Facility: [facility] Address:[address] [place], [place] [address]Result Comment: eAG: (Estimated average glucose) is a calculated value from HgbA1c and is assisted sales representative of the average blood glucose level in the last 2-3 month period.Performed By: #### 31962-7 ####[facility] LABIA [id number] [place] [id number] [facility] HOSPITALHbA1c (Bld) [Mass fraction]5.9 %High4.3-5.6 [facility] on above:Order Comment: Specimen Type: BLOOD SPECIMENOrdering Facility: [facility] Address:[address] [place], [place] [address]Result Comment: [place] Diabetes Association guidelines indicate that patients with HgbA1c in the range 5.7-6.4% are at increased risk for development of diabetes, and intervention by lifestyle modification may be beneficial. HgbA1c greater or equal to 6.5% is considered diagnostic of diabetes.Performed By: #### 90692-0 ####[facility] LABIA [id number] [place] [id number] [place] TSH SerPl-aCncon 11-17-8006GDM Qn1.050 m[IU]/LNormal0.270-4.200[facility] on above:Order Comment: Specimen Type: BLOOD SPECIMENOrdering Facility: [facility] Address:[address] [place], [place] [address]Performed By: #### 3016-3, 2142-08 ####[facility] LABCLIA [id number] [facility]ICAL CENTERGiovanna [facility] [id number] [place], [place] [address] [place] CNOVon 40-54-9840CHBCTwfuoxDnjzygwra Clinic ClevelandCNOVon 68-79-6765AOSZNguual [facility] Medical CenterCNOVon 20-33-5921TQJXIkbqeuAsmjznkys [facility] [place] CBC W Auto Differential panel (Bld)on 96-89-8339Imnyjlgay (Bld) [#/Vol]0.05 10*3/uLNormal<0.11[facility] on above:Order Comment: Specimen Type: BLOOD SPECIMENOrdering Facility: [facility] Address:[address] [place], [place] [address]Performed By: #### 29911-6 ####[facility] LABCLIA [id number] [place], [place] [address]Yhkzvbwag/100 WBC (Bld)0.7 %NormalFairfield Medical Center on above:Order Comment: Specimen Type: BLOOD SPECIMENOrdering Facility: [facility] Address:[address] [place], [place] [address]Performed By: #### 43931-7 ####[facility] LABIA [id number] [place], [place] [address]Xtwyleisjbyc cell count method Nom (Bld)AutoNormalCCorey Hospital on above:Order Comment: Specimen Type: BLOOD SPECIMENOrdering Facility: [facility] Address:[address] [place], [place] [address]Performed By: #### 81653-8 ####[facility] LABIA [id number] [place], [place] [address]Hkfvyzbzwsi (Bld) [#/Vol]0.32 10*3/uLNormal<0.46[facility] on above:Order Comment: Specimen Type: BLOOD SPECIMENOrdering Facility: [facility] Address:[address] [place], [place] [address]Performed By: #### 98834-5 ####[facility] LABCLIA [id number] [place], [place] [address]Aeodfoeeinc/100 WBC (Bld)4.2 %NormalFairfield Medical Center on above:Order Comment: Specimen Type: BLOOD SPECIMENOrdering Facility: [facility] Address:[address] [place], [place] [address]Performed By: #### 85653-8 ####[facility] LABCLIA [id number] [place], [place] [address]Gwdxzroffhf distribution width (RBC) [Ratio]14.6 %Normal 11.5-15.0[facility] on above:Order Comment: Specimen Type: BLOOD SPECIMENOrdering Facility: [facility] Address:[address] [place], [place] [address]Performed By: #### 00906-0 ####[facility] LABCLIA [id number] [place] [address] Hematocrit (Bld) [Volume fraction]36.0 %Low39.0-51.0[facility] Comment on above:Order Comment: Specimen Type: BLOOD SPECIMENOrdering Facility: [facility] Address:[address] [place] [address] Performed By: #### 15262-7 ####[facility] LABCLIA [id number] [place], [place] [address]Xptpnqpskx (Bld) [Mass/Vol]12.1 g/dLLow13.0-17.0[facility] on above:Order Comment: Specimen Type: BLOOD SPECIMENOrdering Facility: [facility] Address:[address] [place], [place] [address]Performed By: #### 16432-3 ####[facility] LABCLIA [id number] [place], [place] [address]Aevbfonk granulocytes (Bld) [#/Vol]10*3/uLNormal<0.10 [facility] on above:Order Comment: Specimen Type: BLOOD SPECIMENOrdering Facility: [facility] Address:[address] [place], [place] [address]Performed By: #### 12281-0 ####[facility] LABCLIA [id number] [place], [place] [address]Mfncxefs granulocytes/100 WBC (Bld)0.3 %NormalFairfield Medical Center on above: Order Comment: Specimen Type: BLOOD SPECIMENOrdering Facility: [facility] Address:[address] [place], [place] [address]Performed By: #### 72516- 8 ####[facility] LABCLIA [id number] [place], [place] [address]Rwvgnhgguun (Bld) [#/Vol]2.32 10*3/uLNormal1.00-4.00 [facility] on above:Order Comment: Specimen Type: BLOOD SPECIMENOrdering Facility: [facility] Address:[address] [place], [place] [address]Performed By: #### 35334-4 ####[facility] LABCLIA [id number] [place], [place] [address]Kssxkkisggi/100 WBC (Bld)30.8 %NormalFairfield Medical Center on above:Order Comment: Specimen Type: BLOOD SPECIMENOrdering Facility: [facility] Address:[address] [place], [place] [address]Performed By: #### 83293-9 ####[facility] LABCLIA [id number] [place], [place] [address]RGW (RBC) [Entitic mass]29.3 ykTdxoqa57.0-34.0[facility] on above:Order Comment: Specimen Type: BLOOD SPECIMENOrdering Facility: [facility] Address:[address] [place], [place] [address]Performed By: #### 51265-2 ####[facility] LABCLIA [id number] [place], [place] [address]VSAX (RBC) [Mass/Vol]33.6 g/nGOzmtqo20.5-36.0[facility] on above: Order Comment: Specimen Type: BLOOD SPECIMENOrdering Facility: [facility] Address:[address] [place], [place] [address]Performed By: #### 67930- 8 ####[facility] LABIA [id number] [place], [place] [address]FUW (RBC) [Entitic vol]87.2 bWDqxndm34.0-100.0[facility] on above:Order Comment: Specimen Type: BLOOD SPECIMENOrdering Facility: [facility] Address:[address] [place], [place] [address]Performed By: #### 87947-0 ####[facility] LAB[facility] [id number] [place], [place] [address]Fwvxcadlz (Bld) [#/Vol]0.63 10*3/uLNormal<0.87[facility] on above:Order Comment: Specimen Type: BLOOD SPECIMENOrdering Facility: [facility] Address:[address] [place], [place] [address]Performed By: #### 61424- 8 ####[facility] LABIA [id number] [place], [place] [address]Xbqutoahw/100 WBC (Bld)8.4 %NormalFairfield Medical Center on above:Order Comment: Specimen Type: BLOOD SPECIMENOrdering Facility: [facility] Address:[address] [place], [place] [address]Performed By: #### 18129-0 ####[facility] LABIA [id number] [place], [place] [address]Iedqwmowvbj (Bld) [#/Vol]4.20 10*3/uLNormal1.45-7.50[facility] on above:Order Comment: Specimen Type: BLOOD SPECIMENOrdering Facility: [facility] Address:[address] [place], [place] [address]Performed By: #### 72541-9 ####[facility] LABCLIA [id number] [place], [place] [address]Uobmhnwkfvk/100 WBC (Bld)55.6 %NormalFairfield Medical Center on above:Order Comment: Specimen Type: BLOOD SPECIMENOrdering Facility: [facility] Address:[address] [place], [place] [address]Performed By: #### 75404-7 ####[facility] LABCLIA [id number] [place], [place] [address]Pohojzutn RBC (Bld) [#/Vol] 10*3/uLNormal<0.01[facility] on above:Order Comment: Specimen Type: BLOOD SPECIMENOrdering Facility: [facility] Address:[address] [place], [place] [address]Performed By: #### 15176-3 ####[facility] LABCLIA [id number] [place], [place] [address]Akftsilvt RBC/100 WBC (Bld) [Ratio]0.0 /100 WBCNormal [facility] on above:Order Comment: Specimen Type: BLOOD SPECIMENOrdering Facility: [facility] Address:[address] [place], [place] [address]Performed By: #### 77440-4 ####[facility] LABCLIA [id number] [place], [place] [address]Splisiny mean volume (Bld) [Entitic vol]9.7 fLNormal9.0-12.7CCorey Hospital on above:Order Comment: Specimen Type: BLOOD SPECIMENOrdering Facility: [facility] Address:[address] [place] [address] Performed By: #### 26801-2 ####[facility] LABCLIA [id number] [place], [place] [address]Ikaufhasy (Bld) [#/Vol]255 10*3/tAWxtypn869-911RgxktrmgnFairfield Medical Center on above:Order Comment: Specimen Type: BLOOD SPECIMENOrdering Facility: [facility] Address:[address] [place], [place] [address]Performed By: #### 91638-5 ####[facility] LABCLIA [id number] [place], [place] [address]WLJ (Bld) [#/Vol]4.13 10*6/uLLow4.20-6.00[facility] on above:Order Comment: Specimen Type: BLOOD SPECIMENOrdering Facility: [facility] Address:[address] [place], [place] [address]Performed By: #### 05298-6 ####[facility] LABIA [id number] [place], [place] [address]THU (Bld) [#/Vol]7.54 10*3/uL Normal3.70-11.00[facility] on above:Order Comment: Specimen Type: BLOOD SPECIMENOrdering Facility: [facility] Address:[address] [place], [place] [address]Performed By: #### 06536-4 ####[facility] LABCLIA [id number] [place], [place] [address]ZIH CBC W AUTO DIFF BLDon 70-04-7373Nertxkaoi/100 WBC (Bld)0.7 %[facility]OM[facility] HealthcareCCF BASOPHILS # BLD AUTO0.05NINFNOSSM Health CareCCF DIFFERENTIAL METHOD BLDAutoNOMS HealthcareCCF EOSINOPHIL # BLD AUTO0.32NINFNOSSM Health CareCCF LYMPHOCYTES # BLD AUTO2.32NOMS [facility] SouthCCF MONOCYTES # BLD AUTO 0.63NINFNOSSM Health CareCCF NEUTROPHILS # BLD AUTO4.2N[facility] HealthcareCCF NRBC # BLD AUTO<0.01NINFNOSSM Health CareCCF NRBC/100 WBC BLD-RTO0/100 WBCNOSSM Health Care CCF PLATELET # BLD [id number] Health CareCCF PMV BLD AUTO9.7 fL9.0 - 12.7 fLCrittenton Behavioral HealthCCF WBC # BLD AUTO7.54NOSSM Health CareEosinophils/100 WBC (Bld)4.2 % [facility] HealthErythrocyte distribution width (RBC) [Ratio]14.6 %11.5 - 15.0 % [facility] HealthHematocrit (Bld) [Volume fraction]36 %Low39.0 - 51.0 %[facility] HealthHemoglobin (Bld) [Mass/Vol]12.1 g/dLLow13.0 - 17.0 g/dLCrittenton Behavioral Health IMM GRANULOCYTES # BLD AUTO<0.03NINFFreeman Health System GRANULOCYTES/LEUK NFR BLD AUTO0.3 %[facility] HealthInterpretation and review of laboratory resultsAbnormal [facility] HealthLymphocytes/100 WBC (Bld)30.8 %[facility] Institute of St. LouisH (RBC) [Entitic mass]29.3 pg26.0 - 34.0 pgThe Rehabilitation Institute of St. LouisHC (RBC) [Mass/Vol]33.6 g/dL30.5 - 36.0 g/dLThe Rehabilitation Institute of St. LouisV (RBC) [Entitic vol]87.2 fL80.0 - 100.0 fLCrittenton Behavioral HealthMonocytes/100 WBC (Bld)8.4 %[facility] HealthNeutrophils/100 WBC (Bld) 55.6 %[facility] HealthRBC (Bld) [#/Vol]4.13 10*6/uLLow4.20 - 6.00 m/uLCrittenton Behavioral HealthSpecimen Type: BLOOD SPECIMEN [facility] Address: [address] [place] [address] Original Ordering Provider: LO MOREIRASSM Health CareCNOVon 20-93-3851DUCIPbixqoMviacmqdu Clinic ClevelandCNPNon 03-92-3469GQFDFfepdk [facility] CenterComprehensive metabolic 2000 panelon 43-97-0615Lbglcwl [Mass/Vol]4.3 g/dLNormal3.9-4.9CKeenan Private HospitalComment on above:Order Comment: Specimen Type: BLOOD SPECIMENOrdering Facility: [facility] Address:[address] [place], [place] [address]Performed By: #### 73012- 8 ####[facility] LABCLIA [id number] [place] [address]VNP [Catalytic activity/Vol]62 U/QAjrvtt83-947AvrcuaoklFairfield Medical Center on above:Order Comment: Specimen Type: BLOOD SPECIMENOrdering Facility: [facility] Address:[address] [place], [place] [address]Performed By: #### 38029-5 ####[facility] LABCLIA [id number] [place] BANKSBARROW NEUROLOGICAL INSTITUTETAYNA[place], [place] [address]JBC [Catalytic activity/Vol]17 U/SVbsqex87-65VwiovybekFairfield Medical Center on above:Order Comment: Specimen Type: BLOOD SPECIMENOrdering Facility: [facility] Address:[address] [place], [place] [address]Performed By: #### 23770- 8 ####[facility] LABCLIA [id number] [place] COTTONBARROW NEUROLOGICAL INSTITUTETANY[place], [place] [address]Obgbs gap [Moles/Vol]11 mmol/LNormal8-15[facility] on above:Order Comment: Specimen Type: BLOOD SPECIMENOrdering Facility: [facility] Address:[address] [place], [place] [address]Performed By: #### 66430-1 ####[facility] LABCLIA [id number] [place] CANORENEBARROW NEUROLOGICAL INSTITUTETANYAENOLA, [place] [address]BON [Catalytic activity/Vol]14 U/TGfhwsg82-74NmrepoljcFairfield Medical Center on above:Order Comment: Specimen Type: BLOOD SPECIMENOrdering Facility: [facility] Address:[address] [place], [place] [address]Performed By: #### 29223-5 ####[facility] LABCLIA [id number] [place] [address] Bilirubin [Mass/Vol]0.3 mg/dLNormal0.2-1.3CCorey Hospital on above:Order Comment: Specimen Type: BLOOD SPECIMENOrdering Facility: [facility] Address:[address] [place], [place] [address]Performed By: #### 53757-8 ####[facility] LABCLIA [id number] [facility] HOSPITALRENEBARROW NEUROLOGICAL INSTITUTETANYAENOLA, [place] [address]Fkvwhno [Mass/Vol]9.4 mg/dLNormal8.5-10.2CCorey [facility] on above:Order Comment: Specimen Type: BLOOD SPECIMENOrdering Facility: [facility] Address:[address] [place], [place] [address]Performed By: #### 86829-4 ####[facility] LABCLIA [id number] [place], [place] [address]Mdwxjjym [Moles/Vol]94 mmol/TWhu68-523EvedakdlnFairfield Medical Center on above:Order Comment: Specimen Type: BLOOD SPECIMENOrdering Facility: [facility] Address:[address] [place], [place] [address]Performed By: #### 21307- 8 ####[facility] LABCLIA [id number] [facility] [place], [place] [address]VR9 [Moles/Vol]30 mmol/FVbgqro40-41UinjruwlkFairfield Medical Center on above:Order Comment: Specimen Type: BLOOD SPECIMENOrdering Facility: [facility] Address:[address] [place], [place] [address]Performed By: #### 64727-5 ####[facility] LABCLIA [id number] [place], [place] [address]Jkzvrbazha [Mass/Vol]0.81 mg/dL Normal0.73-1.22[facility] on above:Order Comment: Specimen Type: BLOOD SPECIMENOrdering Facility: [facility] Address:[address] [place], [place] [address]Performed By: #### 54579-9 ####[facility] LABCLIA [id number] [place], [place] [address]Zksrvxvazp and Glomerular filtration rate.predicted panel (S/P/Bld)96 mL/min/1.73m???Normal>=60[facility] on above:Order Comment: Specimen Type: BLOOD SPECIMENOrdering Facility: [facility] Address:[address] [place], [place] [address]Result Comment: Estimated Glomerular Filtration Rate (eGFR) is [...] not accurately reflect actual GFR.Performed By: #### 46800-0 ####[facility] LABCLIA [id number] [place], [place] [address]Ppppzjt [Mass/Vol]135 mg/pSJajo62-86WepzljlxbFairfield Medical Center on above:Order Comment: Specimen Type: BLOOD SPECIMENOrdering Facility: [facility] Address:[address] [place], [place] [address]Result Comment: The [place] Diabetes Association (ADA) provides guidance for cutoff [...] Standards of Medical Care in Diabetes 2016, [place] Diabetes Association. Diabetes Care. 2016.39(Suppl 1).Performed By: #### 38826-0 ####[facility] LABCLIA [id number] [place], [place] [address]Vhmsumhip [Moles/Vol]3.1 mmol/LLow3.7-5.1CCorey Hospital on above:Order Comment: Specimen Type: BLOOD SPECIMENOrdering Facility: [facility] Address:[address] [place], [place] [address]Performed By: #### 86026-4 ####[facility] LABCLIA [id number] [place], [place] [address]Hdnchci [Mass/Vol]6.3 g/dL Normal6.3-8.0[facility] on above:Order Comment: Specimen Type: BLOOD SPECIMENOrdering Facility: [facility] Address:[address] [place], [place] [address]Performed By: #### 20335-6 ####[facility] LABIA [id number] [place] [address] Sodium [Moles/Vol]135 mmol/VOsy350-721SzftaitopFairfield Medical Center on above:Order Comment: Specimen Type: BLOOD SPECIMENOrdering Facility: [facility] Address:[address] [place], [place] [address]Performed By: #### 60217-4 ####[facility] LABCLIA [id number] [place], [place] [address]Pkvn nitrogen [Mass/Vol]20 mg/dLNormal9-24[facility] on above:Order Comment: Specimen Type: BLOOD SPECIMENOrdering Facility: [facility] Address:[address] [place], [place] [address]Performed By: #### 76258-6 ####[facility] LABIA [id number] [place], [place] [address]Pobavx SerPl-mCncon 00-18-6712Rsduolks [Mass/Vol]2.3 ug/dLLow4.8-19.5CCorey Hospital on above:Order Comment: Specimen Type: BLOOD SPECIMENOrdering Facility: [facility] Address:[address] [place], [place] [address]Result Comment: Provided reference range is from 6-10 AM sample collection time.Cortisol Reference Range: 6-10 AM = 4.8-19.5 ug/dL, 4-8 PM = 2.5-11.9 ug/dL Performed By: #### 3016-3, 2142-08 ####[facility] LABCLIA [id number] [place] [id number] [facility] TSH SerPl-aCncon 76-42-3647ZIF Qn0.921 m[IU]/LNormal0.270-4.200[facility] on above:Order Comment: Specimen Type: BLOOD SPECIMENOrdering Facility: [facility] Address:[address] [place], [place] [address]Performed By: #### 3016-3, 2142-08 ####[facility] LABCLIA [id number] [address] No Panel Informationon 83-90-1234AtpceRobert King NP 04/23/2024 7:43 PM L Inj/Asp: L subacromial bursa on 04/23/2024 3:10 PM Indications: pain Details: 20 G needle, posterior approach Medications: 40 mg methylPREDNISolone acetate 40 MG/ML Outcome: tolerated well, no immediate complications Site cleaned with isopropyl alcohol Procedure, treatment alternatives, risks and benefits explained, specific risks discussed. Consent was given by the patient. [facility] Natacha King NP 04/23/2024 7:43 PM L Inj/Asp: R subacromial bursa on 04/23/2024 3:10 PM Indications: pain Details: 20 G needle, posterior approach Medications: 40 mg methylPREDNISolone acetate 40 MG/ML Outcome: tolerated well, no immediate complications Site cleaned with isopropyl alcohol. Procedure, treatment alternatives, risks and benefits explained, specific risks discussed. Consent was given by the patient. [facility] Manitowoc CountyCNPATEDon 06-07-5190JQIEHPCYDWgvqlqLhwpmqnwv Clinic ClevelandCNOVon 33-53-9323NVCJZbvwvtIptbtthjx Clinic ClevelandCNOVSPon 50-50-7928ESRIRLPqwbejQqnngkcve Clinic ClevelandCORTISOL, SERUMon 04-04-2024 Cortisol [Mass/Vol]11.4 ug/dL4.8 - 19.5 ug/dLOhio Valley HospitalComment on above: Provided reference range is from 6-10 AM sample collection time. Cortisol Reference Range: 6-10 AM = 4.8-19.5 ug/dL, 4-8 PM = 2.5-11.9 ug/dL No Panel Informationon 32-65-8315Qprjnfyjhrmmif and review of laboratory results NormalBluffton HospitalTHYROID STIMULATING HORMONEon 04-04-2024 TSH Qn1.780 m[IU]/LCAvita Health System Galion HospitalCB W Auto Differential panel (Bld)on 77-99-9625Nrevjqanq (Bld) [#/Vol]0.06 10*3/uLOhioHealth Dublin Methodist HospitalDifferential cell count method Nom (Bld)AutoCleveland ClinicEosinophils (Bld) [#/Vol]1.79 10*3/uLHighNIProMedica Fostoria Community HospitalErythrocyte distribution width (RBC) [Ratio]16.0 %High11.5 - 15.0 %[place] Valley HospitalImmature granulocytes (Bld) [#/Vol]0.03 10*3/[facility] Medical CenterImmature granulocytes/100 WBC (Bld)0.3 %[place] Valley HospitalLymphocytes (Bld) [#/Vol]2.08 10*3/Parkwood HospitalMCV (RBC) [Entitic vol]87.0 fL80.0 - 100.0 fLCavita health system ClinicMonocytes (Bld) [#/Vol]0.55 10*3/uL NINFCAvita Health System Galion HospitalNeutrophils (Bld) [#/Vol]4.26 10*3/uLOhio Valley Hospital Nucleated RBC (Bld) [#/Vol]NINFCAvita Health System Galion HospitalNucleated RBC/100 WBC (Bld) [Ratio]0.0 %/100 WBCOhio Valley HospitalPlatelet mean volume (Bld) [Entitic vol]10.5 fL9.0 - 12.7 fLCavita health system ClinicPlatelets (Bld) [#/Vol]259 10*3/uLOhio Valley HospitalWBC (Bld) [#/Vol]8.77 10*3/Parkwood HospitalBasophils (Bld) [#/Vol]0.06 10*3/uLNormal<0.11CCorey Hospital on above:Order Comment: Specimen Type: BLOOD SPECIMENOrdering Facility: [facility] Address:[address] [place], [place] [address]Performed By: #### 48446-8 ####[facility] LABCLIA [id number] [place], [place] [address]Pkmguwfpc/100 WBC (Bld)0.7 %NormalFairfield Medical Center on above:Order Comment: Specimen Type: BLOOD SPECIMENOrdering Facility: [facility] Address:[address] [place], [place] [address]Performed By: #### 46378-0 ####[facility] LABCLIA [id number] [place], [place] [address]Qakusdvdnvmg cell count method Nom (Bld)AutoNormalClevelSelect Medical Specialty Hospital - Canton on above:Order Comment: Specimen Type: BLOOD SPECIMENOrdering Facility: [facility] Address:[address] [place], [place] [address]Performed By: #### 32807-0 ####[facility] LABCLIA [id number] [place], [place] [address]Ekrnhilfqgb (Bld) [#/Vol]1.79 10*3/uLHigh<0.46[facility] on above:Order Comment: Specimen Type: BLOOD SPECIMENOrdering Facility: [facility] Address:[address] [place], [place] [address]Performed By: #### 66035-1 ####[facility] LABCLIA [id number] [place], [place] [address]Duizqmyehzi/100 WBC (Bld)20.4 %NormalFairfield Medical Center on above:Order Comment: Specimen Type: BLOOD SPECIMENOrdering Facility: [facility] Address:[address] [place], [place] [address]Performed By: #### 92903-1 ####[facility] LABCLIA [id number] [place], [place] [address]Sqtwhlijpnv distribution width (RBC) [Ratio]16.0 %High 11.5-15.0[facility] on above:Order Comment: Specimen Type: BLOOD SPECIMENOrdering Facility: [facility] Address:[address] [place], [place] [address]Performed By: #### 80230-8 ####[facility] LABIA [id number] [place] [address] Hematocrit (Bld) [Volume fraction]35.4 %Low39.0-51.0[facility] Comment on above:Order Comment: Specimen Type: BLOOD SPECIMENOrdering Facility: [facility] Address:[address] [place] [address] Performed By: #### 56292-0 ####[facility] LABIA [id number] [place], [place] [address]Rwypmsqyyx (Bld) [Mass/Vol]11.9 g/dLLow13.0-17.0[facility] on above:Order Comment: Specimen Type: BLOOD SPECIMENOrdering Facility: [facility] Address:[address] [place], [place] [address]Performed By: #### 56754-4 ####[facility] LABIA [id number] [place], [place] [address]Hnbuwoxw granulocytes (Bld) [#/Vol]0.03 10*3/uLNormal <0.10[facility] on above:Order Comment: Specimen Type: BLOOD SPECIMENOrdering Facility: [facility] Address:[address] [place], [place] [address]Performed By: #### 85830-6 ####[facility] LABIA [id number] [place], [place] [address]Fulzhbct granulocytes/100 WBC (Bld)0.3 %NormalFairfield Medical Center on above: Order Comment: Specimen Type: BLOOD SPECIMENOrdering Facility: [facility] Address:[address] [place], [place] [address]Performed By: #### 21182- 8 ####[facility] LABCLIA [id number] [place], [place] [address]Gqvwlnopmxz (Bld) [#/Vol]2.08 10*3/uLNormal1.00-4.00 [facility] on above:Order Comment: Specimen Type: BLOOD SPECIMENOrdering Facility: [facility] Address:[address] [place], [place] [address]Performed By: #### 32558-5 ####[facility] LABCLIA [id number] [place], [place] [address]Ulmxhvtzlqd/100 WBC (Bld)23.7 %NormalFairfield Medical Center on above:Order Comment: Specimen Type: BLOOD SPECIMENOrdering Facility: [facility] Address:[address] [place], [place] [address]Performed By: #### 51840-0 ####[facility] LABCLIA [id number] [place], [place] [address]NOA (RBC) [Entitic mass]29.2 vnBauccl82.0-34.0[facility] on above:Order Comment: Specimen Type: BLOOD SPECIMENOrdering Facility: [facility] Address:[address] [place], [place] [address]Performed By: #### 45807-4 ####[facility] LABCLIA [id number] [place], [place] [address]FRPK (RBC) [Mass/Vol]33.6 g/iORecvmv12.5-36.0[facility] on above: Order Comment: Specimen Type: BLOOD SPECIMENOrdering Facility: [facility] Address:[address] [place], [place] [address]Performed By: #### 64401- 8 ####[facility] LABCLIA [id number] [place], [place] [address]TIS (RBC) [Entitic vol]87.0 yHThhnkd31.0-100.0[facility] on above:Order Comment: Specimen Type: BLOOD SPECIMENOrdering Facility: [facility] Address:[address] [place], [place] [address]Performed By: #### 73744-1 ####[facility] LABCLIA [id number] [place], [place] [address]Jfwueoork (Bld) [#/Vol]0.55 10*3/uLNormal<0.87[facility] on above:Order Comment: Specimen Type: BLOOD SPECIMENOrdering Facility: [facility] Address:[address] [place], [place] [address]Performed By: #### 56313- 8 ####[facility] LABCLIA [id number] [place], [place] [address]Qskbzynvl/100 WBC (Bld)6.3 %NormalFairfield Medical Center on above:Order Comment: Specimen Type: BLOOD SPECIMENOrdering Facility: [facility] Address:[address] [place], [place] [address]Performed By: #### 16580-4 ####[facility] LABCLIA [id number] [place], [place] [address]Akxagytqimv (Bld) [#/Vol]4.26 10*3/uLNormal1.45-7.50[facility] on above:Order Comment: Specimen Type: BLOOD SPECIMENOrdering Facility: [facility] Address:[address] [place], [place] [address]Performed By: #### 92977-3 ####[facility] LABCLIA [id number] [place], [place] [address]Tlekzughfal/100 WBC (Bld)48.6 %NormalFairfield Medical Center on above:Order Comment: Specimen Type: BLOOD SPECIMENOrdering Facility: [facility] Address:[address] [place], [place] [address]Performed By: #### 80426-3 ####[facility] LABCLIA [id number] [place], [place] [address]Dmctreegt RBC (Bld) [#/Vol] 10*3/uLNormal<0.01[facility] on above:Order Comment: Specimen Type: BLOOD SPECIMENOrdering Facility: [facility] Address:[address] [place], [place] [address]Performed By: #### 11392-6 ####[facility] LABCLIA [id number] [place], [place] [address]Dcyvzuwux RBC/100 WBC (Bld) [Ratio]0.0 /100 WBCNormal [facility] on above:Order Comment: Specimen Type: BLOOD SPECIMENOrdering Facility: [facility] Address:[address] [place], [place] [address]Performed By: #### 83812-1 ####[facility] LABCLIA [id number] [place], [place] [address]Uvtjgtjt mean volume (Bld) [Entitic vol]10.5 fLNormal9.0-12.7CCorey Hospital on above:Order Comment: Specimen Type: BLOOD SPECIMENOrdering Facility: [facility] Address:[address] [place] [address] Performed By: #### 21265-1 ####[facility] LABCLIA [id number] [place], [place] [address]Llggsqsvw (Bld) [#/Vol]259 10*3/gEQxzzoh482-529WzxiqziiaFairfield Medical Center on above:Order Comment: Specimen Type: BLOOD SPECIMENOrdering Facility: [facility] Address:[address] [place], [place] [address]Performed By: #### 69198-1 ####[facility] LABCLIA [id number] [place], [place] [address]BQO (Bld) [#/Vol]4.07 10*6/uLLow4.20-6.00[facility] on above:Order Comment: Specimen Type: BLOOD SPECIMENOrdering Facility: [facility] Address:[address] [place], [place] [address]Performed By: #### 51597-1 ####[facility] LABIA [id number] [place], [place] [address]BKQ (Bld) [#/Vol]8.77 10*3/uL Normal3.70-11.00[facility] on above:Order Comment: Specimen Type: BLOOD SPECIMENOrdering Facility: [facility] Address:[address] [place], [place] [address]Performed By: #### 33204-8 ####[facility] LABIA [id number] [place], [place] [address]CQH CBC W AUTO DIFF BLDon 92-35-5351HCA BASOPHILS # BLD AUTO0.06NIHardin County Medical Center DIFFERENTIAL METHOD BLDAutoNOMUniversity Health Truman Medical Center EOSINOPHIL # BLD AUTO1.79HighNIHardin County Medical Center LYMPHOCYTES # BLD AUTO2.08 [facility] MONOCYTES # BLD AUTO0.55NIHardin County Medical Center NEUTROPHILS # BLD AUTO4.26[facility] NRBC # BLD AUTO<0.01NIHardin County Medical Center NRBC/100 WBC BLD-RTO0/100 WBCMineral Area Regional Medical Center PLATELET # BLD [id number] of Missouri Health Care PMV BLD AUTO10.5 fL9.0 - 12.7 fLMineral Area Regional Medical Center WBC # BLD AUTO 8.77NOSSM Health CareErythrocyte distribution width (RBC) [Ratio]16 %High11.5 - 15.0 %NOMS [facility] Hospital SouthIM GRANULOCYTES # BLD AUTO0.03NINFFreeman Health System GRANULOCYTES/LEUK NFR BLD AUTO0.3 %[facility] Rehabilitation Institute of St. LouisV (RBC) [Entitic vol]87 fL 80.0 - 100.0 fLNOSSM Health CareSpecimen Type: BLOOD SPECIMEN [facility] Address: [address] [place] [id number] Original Ordering Provider: LO Talbert 03-88-2278Temwmpxs [Mass/Vol]11.4 ug/dLNormal4.8-19.5CKeenan Private Hospital Comment on above:Order Comment: Specimen Type: BLOOD SPECIMENOrdering Facility: [facility] Address:[address] [place] [id number] Comment: Provided reference range is from 6-10 AM sample collection time.Cortisol Reference Range: 6-10 AM = 4.8-19.5 ug/dL, 4-8 PM = 2.5-11.9 ug/dL Performed By: #### 3016-3, 2143-6 ####[facility] LABCLIA [id number] [place] [address] [place] GLUCOSE, BLOOD (POC)on [id number] [Mass/Vol]103 mg/fZWbvaxkid87 - 99 mg/dLOhio Valley HospitalComment on above:Location:[facility], [address] [place] [address] , [place], [place], [facility] The Accu-Chek Inform II glucose meter has [...] above situations. Interpretation and review of laboratory resultsAbnormalCAdena Pike Medical CenterHbA1c (Bld)on [id number] glucose Estimated from glycated hemoglobin (Bld) [Mass/Vol]114 mg/dLOhio Valley HospitalComment on above:eAG: (Estimated average glucose) is a calculated value from HgbA1c and is assisted sales representative of the average blood glucose level in the last 2-3 month period. HbA1c (Bld) [Mass fraction]5.6 %4.3 - 5.6 %[facility] on above: [place] Diabetes [employer] guidelines indicate that patients with HgbA1c in the range 5.7-6.4% are at increased risk for development of diabetes, and intervention by lifestyle modification may be beneficial. HgbA1c greater or equal to 6.5% is considered diagnostic of diabetes.[facility] glucose Estimated from glycated hemoglobin (Bld) [Mass/Vol]114 mg/dLNormal [facility] on above:Order Comment: Specimen Type: BLOOD SPECIMENOrdering Facility: [facility] Address:[address] [place], [place] [address]Result Comment: eAG: (Estimated average glucose) is a calculated value from HgbA1c and is assisted sales representative of the average blood glucose level in the last 2-3 month period.Performed By: #### 44481-2 ####[facility] LABCLIA [id number] [address] [place]UVCRGvB1x (Bld) [Mass fraction]5.6 %Normal4.3-5.6 [facility] on above:Order Comment: Specimen Type: BLOOD SPECIMENOrdering Facility: [facility] Address:[address] [place], [place] [address]Result Comment: [place] [employer] guidelines indicate that patients with HgbA1c in the range 5.7-6.4% are at increased risk for development of diabetes, and intervention by lifestyle modification may be beneficial. HgbA1c greater or equal to 6.5% is considered diagnostic of diabetes.Performed By: #### 02475-9 ####[facility] LABCLIA [id number] [address] [place] Laboratory - Hematology and Cell countson 58-70-4322Cahgmywmu/100 WBC (Bld)0.7 % NOMS HealthcareEosinophils/100 WBC (Bld)20.4 %NOMS HealthcareHematocrit (Bld) [Volume fraction]35.4 %Low39.0 - 51.0 %[facility]OMS HealthcareHemoglobin (Bld) [Mass/Vol]11.9 g/dLLow13.0 - 17.0 g/dLCrittenton Behavioral HealthLymphocytes/100 WBC (Bld) 23.7 %[facility] St. LouisH (RBC) [Entitic mass]29.2 pg26.0 - 34.0 pgThe [facility] Institute of St. LouisHC (RBC) [Mass/Vol]33.6 g/dL30.5 - 36.0 g/dLCrittenton Behavioral Health Monocytes/100 WBC (Bld)6.3 %[facility] HealthNeutrophils/100 WBC (Bld)48.6 %[facility] HealthRBC (Bld) [#/Vol]4.07 10*6/uLLow4.20 - 6.00 m/uLMercy Hospital Washington PET/CT SKULL-THIGH SUBQon 04-03-2024* * *Final Report* [...] * Uptake Time: 48 minutes * Radiopharmaceutical: B07-Kjytzccpbiuzpohiiu (FDG) COMPARISON: FDG PET/CT 10/21/2023 CORRELATION: CT [...] any questions regarding this interpretation, please call [phone]. If you are unable to reach us at the number above, please feel free to contact [facility] at [phone]. [id number]^AGFA_IDC^SI^ACNCCFRadiology, RadiologistMD - 04/03/2024 * * *Final Report* * [...] * Uptake Time: 48 minutes * Radiopharmaceutical: I61-Whjrcusndbwcamtswb (FDG) COMPARISON: FDG PET/CT 10/21/2023 CORRELATION: CT [...] any questions regarding this interpretation, please call [phone]. If you are unable to reach us at the number above, please feel free to contact [facility] eRadiology at [phone]. [id number]^AGFA_IDC^SI^ACN [facility] PET/CT SKULL-THIGH SUBQNormalCKeenan Private Hospital Radiology Study observation (narrative)[facility] Panel Information Ordered By: Ccf Provider on 89-50-2162Dbmupfsot [facility] Panel Informationon 18-42-2283Qugtnuztgiflxu and review of laboratory resultsAbnoFormerly [facility] HealthcarePET+CT Guidance for localization of tumor of Skull base to mid-thigh-- W 18F-FDG Landy 74-49-0386UUGFEQIBHE: HEAD/NECK: * No FDG avid disease. CHEST: [...] any questions regarding this interpretation, please call [phone]. If you are unable to reach us at the number above, please feel free to contact [facility] at [phone].DIVISION OF RADIOLOGY* * *Final Report* * * [...] * Uptake Time: 48 minutes * Radiopharmaceutical: B36-Nprpdxmbplgpvygter (FDG) COMPARISON: FDG PET/CT 10/21/2023 CORRELATION: CT [...] No radiotracer avid lesion. DIVISION OF RADIOLOGYProvider, [facility] [place] - 04/03/2024 * * *Final Report* * [...] * Uptake Time: 48 minutes * Radiopharmaceutical: S57-Hkulzhixeqhtszbdad (FDG) COMPARISON: FDG PET/CT 10/21/2023 CORRELATION: CT [...] any questions regarding this interpretation, please call [phone]. If you are unable to reach us at the number above, please feel free to contact [facility] eRadiology at [phone]. [facility] Hospital[facility] Study observation (narrative)[facility] SerPl-aCncon 40-27-5076XJL Qn1.780 m[IU]/LNormal0.270-4.200Firelands Regional Medical CenterComment on above:Order Comment: Specimen Type: BLOOD SPECIMENOrdering Facility: [facility] Address:[address] [place], [place] [address]Performed By: #### 3016-3, 2143-6 ####[facility] LABCLIA [id number] [place] [address] [place] CNOVon 45-99-7574TVKDGvtbeiKnrelkmcj Clinic ClevelandCNPNon 36-14-5916MQZVDgauxj [facility] CenterCNOVon 51-29-8565OHOGMvxpueGvtfiriyr Clinic [facility] No Panel Informationon 72-71-2915PpyzhRobert King NP 03/08/2024 12:36 PM L Inj/Asp: [...] discussed. Consent was given by the patient. [facility] HospitalCNPNon 50-01-7030LIFGMgfgrqPqhnxgflf Clinic ClevelandCBC W Auto Differential panel (Bld)on 92-79-2825Hufcppdqg (Bld) [#/Vol] 0.09 10*3/uLNormal<0.11CCorey Hospital on above:Order Comment: Specimen Type: BLOOD SPECIMENOrdering Facility: [facility] Address:[address] [place], [place] [address]Performed By: #### 79849-5 ####[facility] LABCLIA [id number] [place], [place] [address]Bjrqxkeax/100 WBC (Bld)0.7 %NormalFairfield Medical Center on above:Order Comment: Specimen Type: BLOOD SPECIMENOrdering Facility: [facility] Address:[address] [place], [place] [address]Performed By: #### 45159-4 ####[facility] LABCLIA [id number] [place], [place] [address]Ticoitceqisw cell count method Nom (Bld)AutoNormalCCorey Hospital on above:Order Comment: Specimen Type: BLOOD SPECIMENOrdering Facility: [facility] Address:[address] [place], [place] [address]Performed By: #### 14496-8 ####[facility] LABCLIA [id number] [place], [place] [address]Pxkhaijexqs (Bld) [#/Vol]3.12 10*3/uLHigh<0.46[facility] on above:Order Comment: Specimen Type: BLOOD SPECIMENOrdering Facility: [facility] Address:[address] [place], [place] [address]Performed By: #### 84595-2 ####[facility] LABCLIA [id number] [place], [place] [address]Wvtldqnyqit/100 WBC (Bld)25.1 %NormalFairfield Medical Center on above:Order Comment: Specimen Type: BLOOD SPECIMENOrdering Facility: [facility] Address:[address] [place], [place] [address]Performed By: #### 47525-1 ####[facility] LABCLIA [id number] [place], [place] [address]Nozfjemzwcm distribution width (RBC) [Ratio]15.7 %High 11.5-15.0[facility] on above:Order Comment: Specimen Type: BLOOD SPECIMENOrdering Facility: [facility] Address:[address] [place], [place] [address]Performed By: #### 71662-5 ####[facility] LABIA [id number] [place] [address] Hematocrit (Bld) [Volume fraction]33.3 %Low39.0-51.0[facility] Comment on above:Order Comment: Specimen Type: BLOOD SPECIMENOrdering Facility: [facility] Address:[address] [place] [address] Performed By: #### 54705-7 ####[facility] LABIA [id number] [place], [place] [address]Epszglvpwk (Bld) [Mass/Vol]11.2 g/dLLow13.0-17.0[facility] on above:Order Comment: Specimen Type: BLOOD SPECIMENOrdering Facility: [facility] Address:[address] [place], [place] [address]Performed By: #### 03909-9 ####[facility] LABIA [id number] [place], [place] [address]Nyeocemv granulocytes (Bld) [#/Vol]0.09 10*3/uLNormal <0.10[facility] on above:Order Comment: Specimen Type: BLOOD SPECIMENOrdering Facility: [facility] Address:[address] [place], [place] [address]Performed By: #### 33809-7 ####[facility] LABIA [id number] [place], [place] [address]Kegxuhcf granulocytes/100 WBC (Bld)0.7 %NormalFairfield Medical Center on above: Order Comment: Specimen Type: BLOOD SPECIMENOrdering Facility: [facility] Address:[address] [place], [place] [address]Performed By: #### 12537- 8 ####[facility] LABIA [id number] [place], [place] [address]Fwfchwfcfwp (Bld) [#/Vol]2.67 10*3/uLNormal1.00-4.00 [facility] on above:Order Comment: Specimen Type: BLOOD SPECIMENOrdering Facility: [facility] Address:[address] [place], [place] [address]Performed By: #### 20289-7 ####[facility] LABIA [id number] [place], [place] [address]Apasuxgalrm/100 WBC (Bld)21.5 %NormalFairfield Medical Center on above:Order Comment: Specimen Type: BLOOD SPECIMENOrdering Facility: [facility] Address:[address] [place], [place] [address]Performed By: #### 98621-1 ####[facility] LABIA [id number] [place], [place] [address]TWL (RBC) [Entitic mass]29.5 neHzvotm64.0-34.0[facility] on above:Order Comment: Specimen Type: BLOOD SPECIMENOrdering Facility: [facility] Address:[address] [place], [place] [address]Performed By: #### 23053-1 ####[facility] LABIA [id number] [place], [place] [address]QUNX (RBC) [Mass/Vol]33.6 g/oPRzxqbh90.5-36.0[facility] on above: Order Comment: Specimen Type: BLOOD SPECIMENOrdering Facility: [facility] Address:[address] [place], [place] [address]Performed By: #### 41198- 8 ####[facility] LABCLIA [id number] [place], [place] [address]LOG (RBC) [Entitic vol]87.6 zMThqtyq17.0-100.0[facility] on above:Order Comment: Specimen Type: BLOOD SPECIMENOrdering Facility: [facility] Address:[address] [place], [place] [address]Performed By: #### 38665-1 ####[facility] LABCLIA [id number] [place], [place] [address]Goiywjish (Bld) [#/Vol]1.02 10*3/uLHigh<0.87[facility] on above:Order Comment: Specimen Type: BLOOD SPECIMENOrdering Facility: [facility] Address:[address] [place], [place] [address]Performed By: #### 32148- 8 ####[facility] LABCLIA [id number] [place], [place] [address]Zawjvtpvc/100 WBC (Bld)8.2 %NormalFairfield Medical Center on above:Order Comment: Specimen Type: BLOOD SPECIMENOrdering Facility: [facility] Address:[address] [place], [place] [address]Performed By: #### 84071-5 ####[facility] LABIA [id number] [place], [place] [address]Kygtqloolnb (Bld) [#/Vol]5.42 10*3/uLNormal1.45-7.50[facility] on above:Order Comment: Specimen Type: BLOOD SPECIMENOrdering Facility: [facility] Address:[address] [place], [place] [address]Performed By: #### 78671-5 ####[facility] LABCLIA [id number] [place], [place] [address]Qksqyetwpsm/100 WBC (Bld)43.8 %NormalFairfield Medical Center on above:Order Comment: Specimen Type: BLOOD SPECIMENOrdering Facility: [facility] Address:[address] [place], [place] [address]Performed By: #### 57356-8 ####[facility] LABCLIA [id number] [place], [place] [address]Zlkcwdugh RBC (Bld) [#/Vol] 10*3/uLNormal<0.01[facility] on above:Order Comment: Specimen Type: BLOOD SPECIMENOrdering Facility: [facility] Address:[address] [place], [place] [address]Performed By: #### 22191-1 ####[facility] LABCLIA [id number] [place], [place] [address]Mqqzzhttt RBC/100 WBC (Bld) [Ratio]0.0 /100 WBCNormal [facility] on above:Order Comment: Specimen Type: BLOOD SPECIMENOrdering Facility: [facility] Address:[address] [place], [place] [address]Performed By: #### 30390-8 ####[facility] LABIA [id number] [place], [place] [address]Oxkzvpjw mean volume (Bld) [Entitic vol]10.1 fLNormal9.0-12.7CCorey Hospital on above:Order Comment: Specimen Type: BLOOD SPECIMENOrdering Facility: [facility] Address:[address] [place] [address] Performed By: #### 26795-1 ####[facility] LABCLIA [id number] [place], [place] [address]Tpahceuzn (Bld) [#/Vol]227 10*3/uSLkkizr212-219EaubnovuuFairfield Medical Center on above:Order Comment: Specimen Type: BLOOD SPECIMENOrdering Facility: [facility] Address:[address] [place], [place] [address]Performed By: #### 93826-8 ####[facility] LABCLIA [id number] [place], [place] [address]CQL (Bld) [#/Vol]3.80 10*6/uLLow4.20-6.00[facility] on above:Order Comment: Specimen Type: BLOOD SPECIMENOrdering Facility: [facility] Address:[address] [place], [place] [address]Performed By: #### 09912-6 ####[facility] LABCLIA [id number] [place], [place] [address]OPM (Bld) [#/Vol]12.41 10*3/uL High3.70-11.00[facility] on above:Order Comment: Specimen Type: BLOOD SPECIMENOrdering Facility: [facility] Address:[address] [place], [place] [address]Performed By: #### 06559-5 ####[facility] LABCLIA [id number] [place] [address] [facility] CBC W AUTO DIFF BLDon 03-86-2502Rkoaoyluu/100 WBC (Bld)0.7 %[facility] BASOPHILS # BLD AUTO0.09NINFMineral Area Regional Medical Center DIFFERENTIAL METHOD BLDAuto [facility] HealthCCF EOSINOPHIL # BLD AUTO3.12HighNINFMineral Area Regional Medical Center LYMPHOCYTES # BLD AUTO2.67NOUniversity of [facility] Health Care MONOCYTES # BLD AUTO1.02HighNINF [facility] HospitalF NEUTROPHILS # BLD AUTO5.42NOUn[facility] of [facility] NRBC # BLD AUTO <0.01NINFHermann Area District HospitalF NRBC/100 WBC BLD-RTO0/100 WBCMineral Area Regional Medical Center PLATELET # BLD [id number] Behavioral HealthCCF PMV BLD AUTO10.1 fL9.0 - 12.7 fLCrittenton Behavioral HealthCCF WBC # BLD AUTO12.41HighCrittenton Behavioral HealthEosinophils/100 WBC (Bld) 25.1 %[facility] HealthErythrocyte distribution width (RBC) [Ratio]15.7 %High11.5 - 15.0 %[facility] HealthHematocrit (Bld) [Volume fraction]33.3 %Low39.0 - 51.0 % [facility] HealthHemoglobin (Bld) [Mass/Vol]11.2 g/dLLow13.0 - 17.0 g/dLCrittenton Behavioral HealthIM GRANULOCYTES # BLD AUTO0.09NINFFreeman Health System GRANULOCYTES/LEUK NFR BLD AUTO0.7 %[facility] HealthInterpretation and review of laboratory resultsAbrmRiddle HospitalLymphocytes/100 WBC (Bld)21.5 %[facility] St. LouisH (RBC) [Entitic mass]29.5 pg26.0 - 34.0 pgThe Rehabilitation Institute of St. LouisHC (RBC) [Mass/Vol]33.6 g/dL30.5 - 36.0 g/dLThe Rehabilitation Institute of St. LouisV (RBC) [Entitic vol]87.6 fL 80.0 - 100.0 fLCrittenton Behavioral HealthMonocytes/100 WBC (Bld)8.2 %[facility] Neutrophils/100 WBC (Bld)43.8 %[facility]al HealthRBC (Bld) [#/Vol]3.8 10*6/uLLow 4.20 - 6.00 m/uLCrittenton Behavioral HealthSpecimen Type: BLOOD SPECIMEN [facility] Address: [address] [place], [place] [address] Original Ordering Provider: LO SERRATOCrittenton Behavioral HealthCNOVSPon 41-67-5363PMIFXFOjnjsvFhxhxkjui [facility] Specialty HospitalComprehensive metabolic 2000 panelon 10-28-8757Nuoeokf [Mass/Vol]4.4 g/dLNormal3.9-4.9ClevelUNC Health NashComment on above:Order Comment: Specimen Type: BLOOD SPECIMENOrdering Facility: [facility] Address:[address] [place], [place] [address]Performed By: #### 49308-3 ####[facility] HOSPITALMARIBEL [facility] LABCLIA [id number] [place], [place] [address]PRK [Catalytic activity/Vol]77 U/PLgpjvo60-570YbcskicxoFairfield Medical Center on above:Order Comment: Specimen Type: BLOOD SPECIMENOrdering Facility: [facility] Address:[address] [place], [place] [address]Performed By: #### 79674-8 ####[facility] HOSPITALMARIBEL [facility] LABCLIA [id number] [place] [facility]OLOG[facility] [place]STITUTETESS[place], [place] [address]ENG [Catalytic activity/Vol]18 U/LGnimcr49-06KwiiqcxpbFairfield Medical Center on above:Order Comment: Specimen Type: BLOOD SPECIMENOrdering Facility: [facility] Address:[address] [place], [place] [address]Performed By: #### 16151-3 ####[facility] LABCLIA [id number] [facility] HOSPITALMARIALUISA [place]AM[place], [place] [address]Lobci gap [Moles/Vol]10 mmol/LNormal8-15[facility] on above:Order Comment: Specimen Type: BLOOD SPECIMENOrdering Facility: [facility] Address:[address] [place], [place] [address]Performed By: #### 59049- 8 ####[facility] HOSPITALMARIBEL [facility] LABCLIA [id number] [place] [facility] [place]STIT[place], [place] [address]BTD [Catalytic activity/Vol]17 U/JNurpcv65-66PkkimvshzFairfield Medical Center on above:Order Comment: Specimen Type: BLOOD SPECIMENOrdering Facility: [facility] Address:[address] [place], [place] [address]Performed By: #### 47121-3 ####[facility] LABCLIA [id number] [place] [facility] [place]STIT[place]ET[place], [place] [address]Uahphkatj [Mass/Vol]0.2 mg/dLNormal0.2-1.3CCorey Hospital on above:Order Comment: Specimen Type: BLOOD SPECIMENOrdering Facility: [facility] Address:[address] [place], [place] [address]Performed By: #### 20060- 8 ####[facility] LABCLIA [id number] [facility] [place], [place] [address]Acyglxa [Mass/Vol]9.5 mg/dLNormal8.5-10.2CCorey Hospital on above:Order Comment: Specimen Type: BLOOD SPECIMENOrdering Facility: [facility] Address:[address] [place], [place] [address]Performed By: #### 58328-0 ####[facility] LABCLIA [id number] [place], [place] [address]Wwdgnqfm [Moles/Vol]97 mmol/L Geb84-203RamygurwgFairfield Medical Center on above:Order Comment: Specimen Type: BLOOD SPECIMENOrdering Facility: [facility] Address:[address] [place], [place] [address]Performed By: #### 39802-1 ####[facility] LABCLIA [id number] [place] [address] CO2 [Moles/Vol]32 mmol/XScbn16-86NctecccjpFairfield Medical Center on above: Order Comment: Specimen Type: BLOOD SPECIMENOrdering Facility: [facility] Address:[address] [place], [place] [address]Performed By: #### 55147- 8 ####[facility] LABCLIA [id number] [facility] [place], [place] [address]Dnofgjcvfy [Mass/Vol]0.79 mg/dLNormal0.73-1.22[facility] on above:Order Comment: Specimen Type: BLOOD SPECIMENOrdering Facility: [facility] Address:[address] [place], [place] [address]Performed By: #### 83221-5 ####[facility] LABCLIA [id number] [place], [place] [address]Yamanarknu and Glomerular filtration rate.predicted panel (S/P/Bld)97 mL/min/1.73m???Normal>=60 [facility] on above:Order Comment: Specimen Type: BLOOD SPECIMENOrdering Facility: [facility] Address:[address] [place], [place] [address]Result Comment: Estimated Glomerular Filtration Rate (eGFR) is calculated using the 2020 CKD-EPI creatinine equation. This equation utilizes serum creatinine, sex, and age as parameters. The creatinine assay has traceable calibration to isotope dilution-mass spectrometry. Refer to KDIGO guidelines for clinical interpretation. In patients with unstable renal function, e.g. those with acute kidney injury, the eGFR may not accurately reflect actual GFR.Performed By: #### 79768-9 ####[facility] LABCLIA [id number] [place], [place] [address]Fzrkfbx [Mass/Vol]122 mg/hOVxoi40-58OtjpzhpvtFairfield Medical Center on above:Order Comment: Specimen Type: BLOOD SPECIMENOrdering Facility: [facility] Address:[address] [place], [place] [address]Result Comment: The [place] Diabetes Association (ADA) provides guidance for cutoff [...] Standards of Medical Care in Diabetes 2016, [place] Diabetes Association. Diabetes Care. 2016.39(Suppl 1).Performed By: #### 70357-5 ####[facility] LABCLIA [id number] [place], [place] [address]Joxzzugyk [Moles/Vol]3.1 mmol/LLow3.7-5.1CCorey Hospital on above:Order Comment: Specimen Type: BLOOD SPECIMENOrdering Facility: [facility] Address:[address] [place], [place] [address]Performed By: #### 14315- 8 ####[facility] LABCLIA [id number] [place], [place] [address]Xbqqpep [Mass/Vol]6.4 g/dLNormal6.3-8.0[facility] on above:Order Comment: Specimen Type: BLOOD SPECIMENOrdering Facility: [facility] Address:[address] [place], [place] [address]Performed By: #### 39179-7 ####[facility] LABCLIA [id number] [place], [place] [address]Gvjnys [Moles/Vol]139 mmol/L Jcgpfg347-980RjnutfgwiFairfield Medical Center on above:Order Comment: Specimen Type: BLOOD SPECIMENOrdering Facility: [facility] Address:[address] [place], [place] [address]Performed By: #### 57273-5 ####[facility] LABCLIA [id number] [place] [address] Urea nitrogen [Mass/Vol]14 mg/dLNormal9-24[facility] on above:Order Comment: Specimen Type: BLOOD SPECIMENOrdering Facility: [facility] Address:[address] [place], [place] [address]Performed By: #### 51231-4 ####[facility] LABIA [id number] [place], [place] [address]Jwckro SerPl-mCncon 96-55-9130Pbdoslvi [Mass/Vol]5.4 ug/dLNormal4.8-19.5CCorey Hospital on above:Order Comment: Specimen Type: BLOOD SPECIMENOrdering Facility: [facility] Address:[address] [place], [place] [address]Result Comment: Provided reference range is from 6-10 AM sample collection time.Cortisol Reference Range: 6-10 AM = 4.8-19.5 ug/dL, 4-8 PM = 2.5-11.9 ug/dLPerformed By: #### 3016-3, 2142-6 ####[facility] LABIA [id number] [place] [id number] [facility] FHOWWSOHeH5i (Bld)on 77-77-5258Uqmcfnn glucose Estimated from glycated hemoglobin (Bld) [Mass/Vol]108 mg/dLNormal [facility] on above:Order Comment: Specimen Type: BLOOD SPECIMENOrdering Facility: [facility] Address:[address] [place], [place] [address]Result Comment: eAG: (Estimated average glucose) is a calculated value from HgbA1c and is assisted sales representative of the average blood glucose level in the last 2-3 month period.Performed By: #### 61060-9 ####[facility] [id number] [address] LAWRENCE HEALTH SYSTEMKLHHWFWJwE5c (Bld) [Mass fraction]5.4 %Normal4.3-5.6 [facility] on above:Order Comment: Specimen Type: BLOOD SPECIMENOrdering Facility: [facility] Address:[address] [place], [place] [address]Result Comment: [place] Diabetes Association guidelines indicate that patients with HgbA1c in the range 5.7-6.4% are at increased risk for development of diabetes, and intervention by lifestyle modification may be beneficial. HgbA1c greater or equal to 6.5% is considered diagnostic of diabetes.Performed By: #### 47075-1 ####[facility] LABIA [id number] [place] [id number] [place] TSH SerPl-aCncon 25-40-3302MSV Qn3.890 m[IU]/LNormal0.270-4.200[facility] on above:Order Comment: Specimen Type: BLOOD SPECIMENOrdering Facility: [facility] Address:[address] [place], [place] [address]Performed By: #### 3016-3, 2142-6 ####[facility] LABCLIA [id number] [address] [place] CNPNon 14-33-5539TMPNXavnhcNgmmpigul Clinic ClevelandNM QUANT DIFF PULM PERF INC IMAGINGon 03-89-2399WH QUANT DIFF PULM PERF INC IMAGINGNM QUANT [...] by Sanchez Mandel MD on 02/20/2024 12:14 PMNormalProMedica Surprise Valley Community HospitalCNOVon 45-63-3796HDUTVzyvsgJkefkbmua Clinic ClevelandCNPNon 01-26-2024 CNPNNormalFirelands Regional Medical CenterCB W Auto Differential panel (Bld)on 42-94-1424Qkuxgqshb (Bld) [#/Vol]0.05 10*3/uLNIProMedica Fostoria Community HospitalDifferential cell count method Nom (Bld)AutoCleveland ClinicEosinophils (Bld) [#/Vol]9.15 10*3/uLHighNIProMedica Fostoria Community HospitalEosinophils/100 WBC (Bld)55.0 %[facility] Immature granulocytes (Bld) [#/Vol]0.05 10*3/uLNINFOhio Valley HospitalImmature granulocytes/100 WBC (Bld)0.3 %[facility] HospitalLymphocytes (Bld) [#/Vol]2.50 10*3/uLOhio Valley HospitalLymphocytes/100 WBC (Bld)15.0 %[facility] HospitalMonocytes (Bld) [#/Vol]0.84 10*3/uLNINFOhio Valley HospitalMonocytes/100 WBC (Bld)5.0 % [facility] HospitalNeutrophils (Bld) [#/Vol]4.06 10*3/uLOhio Valley HospitalNucleated RBC (Bld) [#/Vol]NINFCAvita Health System Galion HospitalNucleated RBC/100 WBC (Bld) [Ratio]0.0 % /100 WBCOhio Valley HospitalPlatelet mean volume (Bld) [Entitic vol]10.0 fL9.0 - 12.7 fLCleveland ClinicPlatelets (Bld) [#/Vol]194 10*3/uLPiermont ClinicRBC (Bld) [#/Vol]3.50 10*6/uLLow4.20 - 6.00 m/Parkwood HospitalWBC (Bld) [#/Vol] 16.65 10*3/uLHighOhio Valley HospitalBasophils (Bld) [#/Vol]0.05 10*3/uLNormal<0.11 [facility] on above:Order Comment: Specimen Type: BLOOD SPECIMENOrdering Facility: [facility] Address:[address] [place], [place] [address]Performed By: #### [id number] ####[facility] LABIA [id number] [place], [place] [address]Dbwrozhgh/100 WBC (Bld)0.3 %NormalFairfield Medical Center on above:Order Comment: Specimen Type: BLOOD SPECIMENOrdering Facility: [facility] Address:[address] [place], [place] [address]Performed By: #### [id number] ####[facility] LABCLIA [id number] [place], [place] [address]Hikymycnzekf cell count method Nom (Bld)AutoNormal [facility] on above:Order Comment: Specimen Type: BLOOD SPECIMENOrdering Facility: [facility] Address:[address] [place], [place] [address]Performed By: #### 46497-5 ####[facility] LABIA [id number] [place], [place] [address]Ncnarvpipks (Bld) [#/Vol]9.15 10*3/uLHigh<0.46[facility] on above: Order Comment: Specimen Type: BLOOD SPECIMENOrdering Facility: [facility] Address:[address] [place], [place] [address]Performed By: #### 27847- 8 ####[facility] LABIA [id number] [place], [place] [address]Sdjvepvhzxo/100 WBC (Bld)55.0 %NormalFairfield Medical Center on above:Order Comment: Specimen Type: BLOOD SPECIMENOrdering Facility: [facility] Address:[address] [place], [place] [address]Performed By: #### 47056-9 ####[facility] LABIA [id number] [place], [place] [address]Tozsphjayrd distribution width (RBC) [Ratio]15.7 %High11.5-15.0[facility] on above:Order Comment: Specimen Type: BLOOD SPECIMENOrdering Facility: [facility] Address:[address] [place], [place] [address]Performed By: #### 41364- 8 ####[facility] LABIA [id number] [place], [place] [address]Sfowheziun (Bld) [Volume fraction]30.2 %Low39.0-51.0 [facility] on above:Order Comment: Specimen Type: BLOOD SPECIMENOrdering Facility: [facility] Address:[address] [place], [place] [address]Performed By: #### 19485-2 ####[facility] LABCLIA [id number] [place], [place] [address]Srshfyfoxw (Bld) [Mass/Vol]10.4 g/dLLow13.0-17.0[facility] on above:Order Comment: Specimen Type: BLOOD SPECIMENOrdering Facility: [facility] Address:[address] [place], [place] [address]Performed By: #### 55902- 8 ####[facility] LABCLIA [id number] [place], [place] [address]Jikwrywd granulocytes (Bld) [#/Vol]0.05 10*3/uLNormal <0.10[facility] on above:Order Comment: Specimen Type: BLOOD SPECIMENOrdering Facility: [facility] Address:[address] [place], [place] [address]Performed By: #### 42901-0 ####[facility] LABIA [id number] [place], [place] [address]Blogqkex granulocytes/100 WBC (Bld)0.3 %NormalFairfield Medical Center on above: Order Comment: Specimen Type: BLOOD SPECIMENOrdering Facility: [facility] Address:[address] [place], [place] [address]Performed By: #### 97785- 8 ####[facility] LABCLIA [id number] [place], [place] [address]Jxufpbapzez (Bld) [#/Vol]2.50 10*3/uLNormal1.00-4.00 [facility] on above:Order Comment: Specimen Type: BLOOD SPECIMENOrdering Facility: [facility] Address:[address] [place], [place] [address]Performed By: #### 30632-5 ####[facility] LABIA [id number] [place], [place] [address]Pzgzppeojyu/100 WBC (Bld)15.0 %NormalFairfield Medical Center on above:Order Comment: Specimen Type: BLOOD SPECIMENOrdering Facility: [facility] Address:[address] [place], [place] [address]Performed By: #### 13728-2 ####[facility] LABCLIA [id number] [place], [place] [address]ISI (RBC) [Entitic mass]29.7 dsJuxzuq57.0-34.0[facility] on above:Order Comment: Specimen Type: BLOOD SPECIMENOrdering Facility: [facility] Address:[address] [place], [place] [address]Performed By: #### 65195-9 ####[facility] LABCLIA [id number] [place], [place] [address]AVDV (RBC) [Mass/Vol]34.4 g/bKZeodtc20.5-36.0[facility] on above: Order Comment: Specimen Type: BLOOD SPECIMENOrdering Facility: [facility] Address:[address] [place], [place] [address]Performed By: #### 59884- 8 ####[facility] LABCLIA [id number] [place], [place] [address]EMY (RBC) [Entitic vol]86.3 lKGlahii72.0-100.0[facility] on above:Order Comment: Specimen Type: BLOOD SPECIMENOrdering Facility: [facility] Address:[address] [place], [place] [address]Performed By: #### 82177-0 ####[facility] LABCLIA [id number] [place], [place] [address]Wqmfnvmok (Bld) [#/Vol]0.84 10*3/uLNormal<0.87[facility] on above:Order Comment: Specimen Type: BLOOD SPECIMENOrdering Facility: [facility] Address:[address] [place], [place] [address]Performed By: #### 43168- 8 ####[facility] LABCLIA [id number] [place], [place] [address]Jqfpwzgfc/100 WBC (Bld)5.0 %NormalFairfield Medical Center on above:Order Comment: Specimen Type: BLOOD SPECIMENOrdering Facility: [facility] Address:[address] [place], [place] [address]Performed By: #### 52319-7 ####[facility] LABCLIA [id number] [place], [place] [address]Qvnihnacswt (Bld) [#/Vol]4.06 10*3/uLNormal1.45-7.50[facility] on above:Order Comment: Specimen Type: BLOOD SPECIMENOrdering Facility: [facility] Address:[address] [place], [place] [address]Performed By: #### 64127-4 ####[facility] LABCLIA [id number] [place], [place] [address]Gwrmioltdqx/100 WBC (Bld)24.4 %NormalFairfield Medical Center on above:Order Comment: Specimen Type: BLOOD SPECIMENOrdering Facility: [facility] Address:[address] [place], [place] [address]Performed By: #### 19756-6 ####[facility] LABCLIA [id number] [place], [place] [address]Kutumtmok RBC (Bld) [#/Vol] 10*3/uLNormal<0.01[facility] on above:Order Comment: Specimen Type: BLOOD SPECIMENOrdering Facility: [facility] Address:[address] [place], [place] [address]Performed By: #### 61958-1 ####[facility] LABCLIA [id number] [place], [place] [address]Inrzvedzk RBC/100 WBC (Bld) [Ratio]0.0 /100 WBCNormal [facility] on above:Order Comment: Specimen Type: BLOOD SPECIMENOrdering Facility: [facility] Address:[address] [place], [place] [address]Performed By: #### 22432-9 ####[facility] LABCLIA [id number] [place], [place] [address]Lwsozkim mean volume (Bld) [Entitic vol]10.0 fLNormal9.0-12.7CCorey Hospital on above:Order Comment: Specimen Type: BLOOD SPECIMENOrdering Facility: [facility] Address:[address] [place] [address] Performed By: #### 98256-8 ####[facility] LABCLIA [id number] [place], [place] [address]Wtwuwpirz (Bld) [#/Vol]194 10*3/zREvqzlq221-994WzrsitplfFairfield Medical Center on above:Order Comment: Specimen Type: BLOOD SPECIMENOrdering Facility: [facility] Address:[address] [place], [place] [address]Performed By: #### 11572-8 ####[facility] LABCLIA [id number] [place], [place] [address]BIJ (Bld) [#/Vol]3.50 10*6/uLLow4.20-6.00[facility] on above:Order Comment: Specimen Type: BLOOD SPECIMENOrdering Facility: [facility] Address:[address] [place], [place] [address]Performed By: #### 19620-7 ####[facility] LABCLIA [id number] [place], [place] [address]SFI (Bld) [#/Vol]16.65 10*3/uL High3.70-11.00[facility] on above:Order Comment: Specimen Type: BLOOD SPECIMENOrdering Facility: [facility] Address:[address] [place], [place] [address]Performed By: #### 19922-7 ####[facility] LABCLIA [id number] [place] [address] [facility] CBC W AUTO DIFF BLDon 43-70-3386BEK BASOPHILS # BLD AUTO0.05NIHardin County Medical Center DIFFERENTIAL METHOD BLDAutoNOMS [facility] EOSINOPHIL # BLD AUTO9.15HighNINFHermann Area District HospitalF LYMPHOCYTES # BLD AUTO2.5NOResearch Belton HospitalF MONOCYTES # BLD AUTO0.84NIDelta Medical CenterF NEUTROPHILS # BLD AUTO4.06NOResearch Belton HospitalF NRBC # BLD AUTO<0.01NIDelta Medical CenterF NRBC/100 WBC BLD-RTO0 /100 WBCMineral Area Regional Medical Center PLATELET # BLD [id number] of Missouri Health Care PMV BLD AUTO 10 fL9.0 - 12.7 fLMineral Area Regional Medical Center WBC # BLD AUTO16.65HighCrittenton Behavioral Health Eosinophils/100 WBC (Bld)55 %NOMS HealthcareIMM GRANULOCYTES # BLD AUTO0.05NINF NOMS HealthcareIMM GRANULOCYTES/LEUK NFR BLD AUTO0.3 %[facility] Lymphocytes/100 WBC (Bld)15 %NOMS HealthcareMonocytes/100 WBC (Bld)5 %NOMS HealthcareRBC (Bld) [#/Vol]3.5 10*6/uLLow4.20 - 6.00 m/[facility] Washington TownshipSpecimen Type: BLOOD SPECIMEN [facility] Address: [address] [place] [address] Original Ordering Provider: LO SANCHEZLINISYNCCT ABD/PEL W IVCONon 60-54-8395OZ ABD/PEL W IVCONNormalFirelands Regional Medical CenterCT Abdomen and Pelvis W contrast Landy 38-02-0105OEMRPBTPFM: No metastatic disease in the abdomen or pelvis. Transcribe Date/Time: Jan 25 2024 10:48A Dictated by: BASHIR SUH MD This examination was interpreted and the report reviewed and electronically signed by: BASHIR SUH MD on Jan 25 2024 11:00AM EST Thank you for allowing us to participate in the care of your patient. Should there be any questions regarding this interpretation, please call [phone]. If you are unable to reach us at the number above, please feel free to contact [facility] Hospital[facility] at [phone].DIVISION OF RADIOLOGY* * *Final Report* * * DATE OF EXAM: Jan 25 2024 10:16AM [facility] 0530 - CT ABD/PEL W IVCON [...] was performed concurrently and is dictated separately. Marine Farmer (topogram) images: Unremarkable. DIVISION OF RADIOLOGYProvider, [facility] [place] - 01/25/2024 * * *Final Report* * * DATE OF EXAM: Jan 25 2024 10:16AM [facility] 0530 - CT ABD/PEL W IVCON [...] was performed concurrently and is dictated separately. Marine Farmer (topogram) images: Unremarkable. IMPRESSION IMPRESSION: No metastatic [...] any questions regarding this interpretation, please call [phone]. If you are unable to reach us at the number above, please feel free to contact [facility] eRadiology at [phone]. [facility] Abdomen and Pelvis W contrast IVOrdered By: Ccf Provider on 79-13-4456Wfettexlt ClinicCT CHEST W IVCONon 73-73-1458CE CHEST W IVCONNormal [facility] Chest W contrast Landy 63-33-7825YFUTCZDNSQ: Decreased size of the left lower lobe [...] any questions regarding this interpretation, please call [phone]. If you are unable to reach us at the number above, please feel free to contact [facility] eRadiology at [phone].DIVISION OF RADIOLOGY* * *Final Report* * * DATE OF EXAM: Jan 25 2024 10:16AM [facility] 0539 - CT CHEST W IVCON [...] was performed concurrently and is dictated separately. Marine Farmer (topogram) images: Unremarkable. DIVISION OF RADIOLOGYProvider, [facility] [place] - 01/25/2024 * * *Final Report* * * DATE OF EXAM: Jan 25 2024 10:16AM [facility] 0539 - CT CHEST W IVCON [...] was performed concurrently and is dictated separately. Marine Farmer (topogram) images: Unremarkable. IMPRESSION IMPRESSION: Decreased size [...] any questions regarding this interpretation, please call [phone]. If you are unable to reach us at the number above, please feel free to contact [facility] eRadiology at [phone]. [facility] HospitalComprehensive metabolic 2000 panelOrdered By: Delilah Zaldivar on 60-78-7957Qogvmnu [Mass/Vol]4.1 g/dL3.9 - 4.9 g/dLOhio Valley Hospital ALP [Catalytic activity/Vol]77 U/L38 - 113 U/LCleveland ClinicALT [Catalytic activity/Vol]18 U/L10 - 54 U/LCleveland ClinicAnion gap [Moles/Vol]13 mmol/L8 - 15 mmol/LCleveland ClinicAST [Catalytic activity/Vol]22 U/L14 - 40 U/LCleveland ClinicBilirubin [Mass/Vol]0.2 mg/dL0.2 - 1.3 mg/dLPiermont ClinicCalcium [Mass/Vol]9.3 mg/dL8.5 - 10.2 mg/dLPiermont ClinicChloride [Moles/Vol]98 mmol/L 98 - 107 mmol/LCleveland ClinicCO2 [Moles/Vol]31 mmol/LHigh22 - 30 mmol/L [facility] HospitalCreatinine [Mass/Vol]0.72 mg/dLLow0.73 - 1.22 mg/dLPiermont ClinicGFR/1.73 sq M.predicted among non-blacks MDRD (S/P/Bld) [...] eGFRmay not accurately reflect actual GFR.Glucose [Mass/Vol]162 mg/nZXlrf99 - 99 mg/dL [facility] on above:The [place] Diabetes Association (ADA) provides guidance for cutoff [...] Standards of Medical Care in Diabetes 2016, [place] Diabetes Association. Diabetes Care. 2016.39(Suppl 1). Interpretation and review of laboratory resultsAbnormalCleveland ClinicPotassium [Moles/Vol]3.2 mmol/LLow3.7 - 5.1 mmol/LCleveland ClinicProtein [Mass/Vol]6.2 g/dLLow6.3 - 8.0 g/dLSumma Health Wadsworth - Rittman Medical Centerodium [Moles/Vol]142 mmol/L136 - 144 mmol/LCleveland ClinicUrea nitrogen [Mass/Vol]14 mg/dL9 - 24 mg/dLMercy Health Clermont Hospitalprehensive metabolic 2000 panelon 66-54-6540Hjvjife [Mass/Vol]4.1 g/dLNormal3.9-4.9CCorey Hospital on above:Order Comment: Specimen Type: BLOOD SPECIMENOrdering Facility: [facility] Address:[address] [place], [place] [address]Bpbuylgpr By: #### 02582- 8 ####[facility] LABCLIA [id number] [place], [place] [address]MUI [Catalytic activity/Vol]77 U/UGskhhi30-681UgmtxnneaFairfield Medical Center on above:Order Comment: Specimen Type: BLOOD SPECIMENOrdering Facility: [facility] Address:[address] [place], [place] [address]Bmkauownm By: #### 03887-8 ####[facility]UNHMARIBEL [facility] LABCLIA [id number] [place] [address]BMF [Catalytic activity/Vol]18 U/FCgbqdi68-95IbbiwznvpFairfield Medical Center on above:Order Comment: Specimen Type: BLOOD SPECIMENOrdering Facility: [facility] Address:[address] [place], [place] [address]Performed By: #### 73748- 8 ####[facility] LABCLIA [id number] [facility] JEROME COTTONB[facility]OW NEUROLOGICAL INSTIT[place]ET[place], [place] [address]Drivl gap [Moles/Vol]13 mmol/LNormal8-15[facility] on above:Order Comment: Specimen Type: BLOOD SPECIMENOrdering Facility: [facility] Address:[address] [place], [place] [address]Performed By: #### 22879-5 ####[facility] LABCLIA [id number] [place], [place] [address]AUP [Catalytic activity/Vol]22 U/QLoimys14-48EcdodrpzsFairfield Medical Center on above:Order Comment: Specimen Type: BLOOD SPECIMENOrdering Facility: [facility] Address:[address] [place], [place] [address]Performed By: #### 34270-2 ####[facility] HOSPITALMARIBEL [facility] LABCLIA [id number] [facility] [place] [address] Bilirubin [Mass/Vol]0.2 mg/dLNormal0.2-1.3CCorey Hospital on above:Order Comment: Specimen Type: BLOOD SPECIMENOrdering Facility: [facility] Address:[address] [place], [place] [address]Performed By: #### 28739-8 ####[facility] LABCLIA [id number] [facility] [place], [place] [address]Oudgwii [Mass/Vol]9.3 mg/dLNormal8.5-10.2CCorey Hospital on above:Order Comment: Specimen Type: BLOOD SPECIMENOrdering Facility: [facility] Address:[address] [place], [place] [address]Performed By: #### 14746-1 ####[facility] LABCLIA [id number] [place], [place] [address]Dbszwvdz [Moles/Vol]98 mmol/DTdctcc17-415SodwxqckkFairfield Medical Center on above:Order Comment: Specimen Type: BLOOD SPECIMENOrdering Facility: [facility] Address:[address] [place], [place] [address]Performed By: #### 46351- 8 ####[facility] LABCLIA [id number] [place], [place] [address]NV4 [Moles/Vol]31 mmol/VLazu06-01CkitkuoqaFairfield Medical Center on above:Order Comment: Specimen Type: BLOOD SPECIMENOrdering Facility: [facility] Address:[address] [place], [place] [address]Performed By: #### 74988-4 ####[facility] LABCLIA [id number] [place], [place] [address]Rgtnsudjvl [Mass/Vol]0.72 mg/dL Low0.73-1.22[facility] on above:Order Comment: Specimen Type: BLOOD SPECIMENOrdering Facility: [facility] Address:[address] [place], [place] [address]Performed By: #### 32959-7 ####[facility] LABIA [id number] [place] [address] Creatinine and Glomerular filtration rate.predicted panel (S/P/Bld)100 mL/min/1.73m???Normal>=60[facility] on above:Order Comment: Specimen Type: BLOOD SPECIMENOrdering Facility: [facility] Address:[address] [place], [place] [address]Result Comment: Estimated Glomerular Filtration Rate (eGFR) is [...] not accurately reflect actual GFR.Performed By: #### 61787-4 ####[facility] LABCLIA [id number] [place], [place] [address]Yqnbqky [Mass/Vol]162 mg/cWOdqc91-85QftdlodlzFairfield Medical Center on above:Order Comment: Specimen Type: BLOOD SPECIMENOrdering Facility: [facility] Address:[address] [place] [address]Gcuysq Comment: The [place] Diabetes Association (ADA) provides guidance for cutoff [...] Standards of Medical Care in Diabetes 2016, [place] Diabetes Association. Diabetes Care. 2016.39(Suppl 1).Performed By: #### 89342-7 ####[facility] LABCLIA [id number] [place], [place] [address]Aqzxsxwhc [Moles/Vol]3.2 mmol/LLow3.7-5.1CCorey Hospital on above:Order Comment: Specimen Type: BLOOD SPECIMENOrdering Facility: [facility] Address:[address] [place] [address]Maxrowvmz By: #### 56408-6 ####[facility] LABCLIA [id number] [place], [place] [address]Cossnen [Mass/Vol]6.2 g/dLLow 6.3-8.0[facility] on above:Order Comment: Specimen Type: BLOOD SPECIMENOrdering Facility: [facility] Address:[address] [place], [place] [address]Performed By: #### 77042-6 ####[facility] LABCLIA [id number] [place], [place] [address]Vhnrpa [Moles/Vol]142 mmol/VWazttm645-071OozpwbguwFairfield Medical Center on above: Order Comment: Specimen Type: BLOOD SPECIMENOrdering Facility: [facility] Address:[address] [place], [place] [address]Performed By: #### 33288- 8 ####[facility] LABCLIA [id number] [place], [place] [address]Lkgi nitrogen [Mass/Vol]14 mg/dLNormal9-24[facility] on above:Order Comment: Specimen Type: BLOOD SPECIMENOrdering Facility: [facility] Address:[address] [place], [place] [address]Performed By: #### 65834-1 ####[facility] LABCLIA [id number] [place], [place] [address]Vshdbhanic - Hematology and Cell countson 70-27-4248Wjpquetmp/100 WBC (Bld)0.3 %[facility] Valley HospitalErythrocyte distribution width (RBC) [Ratio]15.7 %High11.5 - 15.0 % [facility] HospitalHematocrit (Bld) [Volume fraction]30.2 %Low39.0 - 51.0 % [facility] HospitalHemoglobin (Bld) [Mass/Vol]10.4 g/dLLow13.0 - 17.0 g/dLKettering Health SpringfieldH (RBC) [Entitic mass]29.7 pg26.0 - 34.0 pgClevelNew Prague HospitalHC (RBC) [Mass/Vol]34.4 g/dL30.5 - 36.0 g/dLKettering Health SpringfieldV (RBC) [Entitic vol]86.3 fL80.0 - 100.0 fLCAvita Health System Galion HospitalNeutrophils/100 WBC (Bld)24.4 %[facility] No Panel Informationon 61-39-1786Xgnxqttpuwrste and review of laboratory results AbnormalBluffton HospitalRadiology Study observation (narrative) [facility] metabolic 1997 panelon 43-73-9460Znaeyau [Mass/Vol]9.3 mg/dL8.6 - 10.3 mg/dLNOUT HealthcareChloride [Moles/Vol]98 mmol/L98 - 110 mmol/L NOMS HealthcareCO2 [Moles/Vol]34 mmol/LHigh20 - 32 mmol/LNOMS Healthcare Creatinine [Mass/Vol]0.81 mg/dL0.70 - 1.35 mg/dLNOMS HealthcareGFR/1.73 sq M.predicted among non-blacks MDRD (S/P/Bld) [Vol rate/Area]96 mL/min/{1.73_m2}> OR = 60 mL/min/1.20c2DKVY HealthcareGlucose [Mass/Vol]134 mg/pCBwee36 - 99 mg/dL [facility] HealthcareComment on above: Fasting reference interval For someone without known diabetes, a glucose value >125 mg/dL indicates that they may have diabetes and this should be confirmed with a follow-up test. Interpretation and review of laboratory resultsAbnormalNOMS HealthcarePotassium [Moles/Vol]3.6 mmol/L3.5 - 5.3 mmol/LNOMS HealthcareSodium [Moles/Vol]141 mmol/L 135 - 146 mmol/LNOMS HealthcareUrea nitrogen [Mass/Vol]16 mg/dL7 - 25 mg/dLNOUT HealthcareUrea nitrogen/Creatinine [Mass ratio]SEE NOTE:[facility] HealthcareComment on above:Not Reported: BUN and Creatinine are within reference range. Performing Organization Information Site ID: QPT Name: [employer] [facility] Address: [address] [place] [address], [address] [place] [id number] Director: Rc Mallory MDMission Hospital McDowell metabolic 1997 panelOrdered By: Lana Alfred on 48-74-2684NPFP HealthcareCNPNon 01-18-2024 CNPNNormalFirelands Regional Medical CenterCNCOon 48-49-3840NORMXwokdt TextNormal [facility] Medical CenterCNPNon 18-40-7251SLKSDzqivhMrrigxafd Clinic [facility] CNPNon 94-48-2200DNLSLxnexuCgxmtmjfd Clinic ClevelandCBC W Auto Differential panel (Bld)on 57-79-2357Kbcepfkjn (Bld) [#/Vol]0.06 10*3/uLNormal<0.11CCorey Hospital on above:Order Comment: Specimen Type: BLOOD SPECIMENOrdering Facility: [facility] Address:[address] [place], [place] [address]Performed By: #### 69270-0 ####[facility] LABCLIA [id number] [place], [place] [address]Fnwjdhvoi/100 WBC (Bld)0.7 %[facility] on above:Order Comment: Specimen Type: BLOOD SPECIMENOrdering Facility: [facility] Address:[address] [place], [place] [address]Performed By: #### 36564-3 ####[facility] LABCLIA [id number] [place], [place] [address]Icdxniukwici cell count method Nom (Bld)AutoNormal [facility] on above:Order Comment: Specimen Type: BLOOD SPECIMENOrdering Facility: [facility] Address:[address] [place], [place] [address]Performed By: #### 42918-8 ####[facility] LABCLIA [id number] [place], [place] [address]Dyhcacybyiv (Bld) [#/Vol]2.84 10*3/uLHigh<0.46[facility] on above: Order Comment: Specimen Type: BLOOD SPECIMENOrdering Facility: [facility] Address:[address] [place], [place] [address]Performed By: #### 70206- 8 ####[facility] LABCLIA [id number] [place], [place] [address]Qqeodnvajqo/100 WBC (Bld)34.5 %NormalFairfield Medical Center on above:Order Comment: Specimen Type: BLOOD SPECIMENOrdering Facility: [facility] Address:[address] [place], [place] [address]Performed By: #### 26780-2 ####[facility] LABIA [id number] [place], [place] [address]Lrhmejyaseo distribution width (RBC) [Ratio]15.3 %High11.5-15.0[facility] on above:Order Comment: Specimen Type: BLOOD SPECIMENOrdering Facility: [facility] Address:[address] [place], [place] [address]Performed By: #### 82733- 8 ####[facility] LABIA [id number] [place], [place] [address]Wlxptptgbw (Bld) [Volume fraction]31.0 %Low39.0-51.0 [facility] on above:Order Comment: Specimen Type: BLOOD SPECIMENOrdering Facility: [facility] Address:[address] [place], [place] [address]Performed By: #### 24413-5 ####[facility] LABIA [id number] [place], [place] [address]Zlfbagetvi (Bld) [Mass/Vol]10.4 g/dLLow13.0-17.0[facility] on above:Order Comment: Specimen Type: BLOOD SPECIMENOrdering Facility: [facility] Address:[address] [place], [place] [address]Performed By: #### [id number]- 8 ####[facility] LABIA [id number] [place], [place] [address]Lxpvfqmd granulocytes (Bld) [#/Vol]10*3/uLNormal<0.10 [facility] on above:Order Comment: Specimen Type: BLOOD SPECIMENOrdering Facility: [facility] Address:[address] [place], [place] [address]Performed By: #### [id number] ####[facility] LABIA [id number] [place], [place] [address]Vuneqwhj granulocytes/100 WBC (Bld)0.2 %NormalFairfield Medical Center on above: Order Comment: Specimen Type: BLOOD SPECIMENOrdering Facility: [facility] Address:[address] [place], [place] [address]Performed By: #### 62926- 8 ####[facility] LABCLIA [id number] [place], [place] [address]Trlyxbpiwlg (Bld) [#/Vol]2.26 10*3/uLNormal1.00-4.00 [facility] on above:Order Comment: Specimen Type: BLOOD SPECIMENOrdering Facility: [facility] Address:[address] [place], [place] [address]Performed By: #### [id number] ####[facility] LABCLIA [id number] [place], [place] [address]Qvzjqpartcl/100 WBC (Bld)27.4 %NormalFairfield Medical Center on above:Order Comment: Specimen Type: BLOOD SPECIMENOrdering Facility: [facility] Address:[address] [place], [place] [address]Performed By: #### 29350-0 ####[facility] LABCLIA [id number] [place], [place] [address]TQP (RBC) [Entitic mass]29.4 aoMqgjrl29.0-34.0[facility] on above:Order Comment: Specimen Type: BLOOD SPECIMENOrdering Facility: [facility] Address:[address] [place], [place] [address]Performed By: #### 05394-2 ####[facility] LABCLIA [id number] [place], [place] [address]MTNY (RBC) [Mass/Vol]33.5 g/pNUoizdv99.5-36.0[facility] on above: Order Comment: Specimen Type: BLOOD SPECIMENOrdering Facility: [facility] Address:[address] [place], [place] [address]Performed By: #### 62831- 8 ####[facility] LABCLIA [id number] [place], [place] [address]HBJ (RBC) [Entitic vol]87.6 yCJbdudq91.0-100.0[facility] on above:Order Comment: Specimen Type: BLOOD SPECIMENOrdering Facility: [facility] Address:[address] [place], [place] [address]Performed By: #### 47006-3 ####[facility] LABCLIA [id number] [place], [place] [address]Cgmifvvyl (Bld) [#/Vol]0.75 10*3/uLNormal<0.87[facility] on above:Order Comment: Specimen Type: BLOOD SPECIMENOrdering Facility: [facility] Address:[address] [place], [place] [address]Performed By: #### 16293- 8 ####[facility] LABCLIA [id number] [place], [place] [address]Yrcspscli/100 WBC (Bld)9.1 %NormalFairfield Medical Center on above:Order Comment: Specimen Type: BLOOD SPECIMENOrdering Facility: [facility] Address:[address] [place], [place] [address]Performed By: #### 99877-1 ####[facility] LABIA [id number] [place], [place] [address]Qnyemcgzjic (Bld) [#/Vol]2.31 10*3/uLNormal1.45-7.50[facility] on above:Order Comment: Specimen Type: BLOOD SPECIMENOrdering Facility: [facility] Address:[address] [place], [place] [address]Performed By: #### 41182-7 ####[facility] LABCLIA [id number] [place], [place] [address]Ssfotgmnbpb/100 WBC (Bld)28.1 %NormalFairfield Medical Center on above:Order Comment: Specimen Type: BLOOD SPECIMENOrdering Facility: [facility] Address:[address] [place], [place] [address]Performed By: #### 39598-5 ####[facility] LABCLIA [id number] [place], [place] [address]Zhwgiqsif RBC (Bld) [#/Vol] 10*3/uLNormal<0.01[facility] on above:Order Comment: Specimen Type: BLOOD SPECIMENOrdering Facility: [facility] Address:[address] [place], [place] [address]Performed By: #### 22212-1 ####[facility] LABCLIA [id number] [place], [place] [address]Kiyrevykl RBC/100 WBC (Bld) [Ratio]0.0 /100 WBCNormal [facility] on above:Order Comment: Specimen Type: BLOOD SPECIMENOrdering Facility: [facility] Address:[address] [place], [place] [address]Performed By: #### 29664-7 ####[facility] LABIA [id number] [place], [place] [address]Fwkmgwbz mean volume (Bld) [Entitic vol]9.1 fLNormal9.0-12.7CCorey Hospital on above:Order Comment: Specimen Type: BLOOD SPECIMENOrdering Facility: [facility] Address:[address] [place] [address] Performed By: #### 71488-0 ####[facility] LABIA [id number] [place], [place] [address]Fvsshsifq (Bld) [#/Vol]347 10*3/rIMyhoae117-004WpirfocnuFairfield Medical Center on above:Order Comment: Specimen Type: BLOOD SPECIMENOrdering Facility: [facility] Address:[address] [place], [place] [address]Performed By: #### 21360-4 ####[facility] LABCLIA [id number] [place], [place] [address]BYR (Bld) [#/Vol]3.54 10*6/uLLow4.20-6.00[facility] on above:Order Comment: Specimen Type: BLOOD SPECIMENOrdering Facility: [facility] Address:[address] [place], [place] [address]Performed By: #### 67118-9 ####[facility] LABCLIA [id number] [place], [place] [address]USX (Bld) [#/Vol]8.24 10*3/uL Normal3.70-11.00[facility] on above:Order Comment: Specimen Type: BLOOD SPECIMENOrdering Facility: [facility] Address:[address] [place], [place] [address]Performed By: #### 80763-4 ####[facility] LABCLIA [id number] [place], [place] [address]CJT CBC W AUTO DIFF BLDon 36-94-1282Gxxhealwt/100 WBC (Bld)0.7 %[facility] HospitalF BASOPHILS # BLD AUTO0.06NIHardin County Medical Center DIFFERENTIAL METHOD BLDAutoNOMUniversity Health Truman Medical Center EOSINOPHIL # BLD AUTO2.84HighNINF [facility] LYMPHOCYTES # BLD AUTO2.26NOUniversity of Missouri Health Care MONOCYTES # BLD AUTO0.75NIHardin County Medical Center NEUTROPHILS # BLD AUTO2.31NOUniversity of [facility] Health [facility] NRBC # BLD AUTO<0.01NIHardin County Medical Center NRBC/100 WBC BLD-RTO0/100 WBCMineral Area Regional Medical Center PLATELET # BLD DFIL328UHXUMineral Area Regional Medical Center PMV BLD AUTO9.1 fL9.0 - 12.7 fLMineral Area Regional Medical Center WBC # BLD AUTO8.24NOSSM Health CareEosinophils/100 WBC (Bld)34.5 %NOMS HealthcareErythrocyte distribution width (RBC) [Ratio]15.3 %High 11.5 - 15.0 %[facility] HealthcareHematocrit (Bld) [Volume fraction]31 %Low39.0 - 51.0 %[facility] HealthHemoglobin (Bld) [Mass/Vol]10.4 g/dLLow13.0 - 17.0 g/dLFreeman Health System GRANULOCYTES # BLD AUTO<0.03NINFFreeman Health System GRANULOCYTES/LEUK NFR BLD AUTO0.2 %[facility] HealthInterpretation and review of laboratory resultsAbnormalCrittenton Behavioral HealthLymphocytes/100 WBC (Bld)27.4 %[facility] Institute of St. LouisH (RBC) [Entitic mass]29.4 pg26.0 - 34.0 pgThe Rehabilitation Institute of St. LouisHC (RBC) [Mass/Vol]33.5 g/dL30.5 - 36.0 g/dLThe Rehabilitation Institute of St. LouisV (RBC) [Entitic vol]87.6 fL 80.0 - 100.0 fLCrittenton Behavioral HealthMonocytes/100 WBC (Bld)9.1 %[facility] Neutrophils/100 WBC (Bld)28.1 %[facility] HealthRBC (Bld) [#/Vol]3.54 10*6/uLLow 4.20 - 6.00 m/uLSALT LAKE BE[facility]IORAL [facility]ALTH [facility] HealthcareSpecimen Type: BLOOD SPECIMEN [facility] Address: [address] [place], [place] [address] Original Ordering Provider: LO MOREIRASSM Health CareCNOVSPon 19-99-5480GMHAXXUrokreCujiilqye Clinic ClevelandComprehensive metabolic 2000 panelon 84-00-2226Buydqga [Mass/Vol]4.2 g/dLNormal3.9-4.9CCorey Hospital on above:Order Comment: Specimen Type: BLOOD SPECIMENOrdering Facility: [facility] Address:[address] [place], [place] [address]Performed By: #### 26086-9 ####[facility] LABCLIA [id number] [place], [place] [address]HGQ [Catalytic activity/Vol]72 U/OTumhas94-586QszstkqwfFairfield Medical Center on above:Order Comment: Specimen Type: BLOOD SPECIMENOrdering Facility: [facility] Address:[address] [place], [place] [address]Performed By: #### 29030-4 ####[facility] HOSPITALMARIBEL [facility] LABCLIA [id number] [facility]IESHASTA [facility] YURYBARROW NE[place] [address]WWN [Catalytic activity/Vol]26 U/PQifohr08-16PudtcbsixFairfield Medical Center on above:Order Comment: Specimen Type: BLOOD SPECIMENOrdering Facility: [facility] Address:[address] [place], [place] [address]Performed By: #### 51259-7 ####[facility] LABCLIA [id number] [place], [place] [address]Sqhrq gap [Moles/Vol]11 mmol/LNormal8-15[facility] on above:Order Comment: Specimen Type: BLOOD SPECIMENOrdering Facility: [facility] Address:[address] [place], [place] [address]Performed By: #### 70908- 8 ####[facility] HOSPITALMARIBEL [facility] LABCLIA [id number] [place], [place] [address]LDV [Catalytic activity/Vol]20 U/KMegwfk84-72MwwslkeyqFairfield Medical Center on above:Order Comment: Specimen Type: BLOOD SPECIMENOrdering Facility: [facility] Address:[address] [place], [place] [address]Performed By: #### 72326-9 ####[facility] LABCLIA [id number] [place], [place] [address]Hmwngwfdu [Mass/Vol]0.2 mg/dLNormal0.2-1.3CCorey Hospital on above:Order Comment: Specimen Type: BLOOD SPECIMENOrdering Facility: [facility] Address:[address] [place], [place] [address]Performed By: #### 11372- 8 ####[facility] LABCLIA [id number] [place], [place] [address]Cweaotb [Mass/Vol]8.8 mg/dLNormal8.5-10.2CCorey Hospital on above:Order Comment: Specimen Type: BLOOD SPECIMENOrdering Facility: [facility] Address:[address] [place], [place] [address]Performed By: #### 38591-5 ####[facility] LABCLIA [id number] [place], [place] [address]Njvisezb [Moles/Vol]98 mmol/L Cwlzck17-526WvcdezkrmFairfield Medical Center on above:Order Comment: Specimen Type: BLOOD SPECIMENOrdering Facility: [facility] Address:[address] [place], [place] [address]Performed By: #### 71192-8 ####[facility] LABCLIA [id number] [place] [address] CO2 [Moles/Vol]30 mmol/PWftryo59-05CqpyewkjrFairfield Medical Center on above: Order Comment: Specimen Type: BLOOD SPECIMENOrdering Facility: [facility] Address:[address] [place], [place] [address]Performed By: #### 97433- 8 ####[facility] LABCLIA [id number] [place], [place] [address]Flpmjmnoyr [Mass/Vol]0.72 mg/dLLow0.73-1.22[facility] on above:Order Comment: Specimen Type: BLOOD SPECIMENOrdering Facility: [facility] Address:[address] [place], [place] [address]Performed By: #### 69096-0 ####[facility] LABCLIA [id number] [place], [place] [address]Ntgwcrfljv and Glomerular filtration rate.predicted panel (S/P/Bld)100 mL/min/1.73m???Normal >=60[facility] on above:Order Comment: Specimen Type: BLOOD SPECIMENOrdering Facility: [facility] Address:[address] [place], [place] [address]Result Comment: Estimated Glomerular Filtration Rate (eGFR) is calculated using the 2020 CKD-EPI creatinine equation. This equation utilizes serum creatinine, sex, and age as parameters. The creatinine assay has traceable calibration to isotope dilution-mass spectrometry. Refer to KDIGO guidelines for clinical interpretation. In patients with unstable renal function, e.g. those with acute kidney injury, the eGFR may not accurately reflect actual GFR.Performed By: #### 16170-6 ####[facility] LABCLIA [id number] [place], [place] [address]Oxcykni [Mass/Vol]139 mg/eMAfll06-69SleilzghfFairfield Medical Center on above:Order Comment: Specimen Type: BLOOD SPECIMENOrdering Facility: [facility] Address:[address] [place], [place] [address]Result Comment: The [place] Diabetes Association (ADA) provides guidance for cutoff [...] Standards of Medical Care in Diabetes 2016, [place] Diabetes Association. Diabetes Care. 2016.39(Suppl 1).Performed By: #### 94482-3 ####[facility] LABCLIA [id number] [place], [place] [address]Ehezctake [Moles/Vol]3.3 mmol/LLow3.7-5.1CCorey Hospital on above:Order Comment: Specimen Type: BLOOD SPECIMENOrdering Facility: [facility] Address:[address] [place] [address]Cmgrwbyox By: #### 33197- 8 ####[facility] LABCLIA [id number] [place], [place] [address]Unhnbfe [Mass/Vol]6.4 g/dLNormal6.3-8.0[facility] on above:Order Comment: Specimen Type: BLOOD SPECIMENOrdering Facility: [facility] Address:[address] [place], [place] [address]Performed By: #### 23214-5 ####[facility] LABCLIA [id number] [place], [place] [address]Zclaod [Moles/Vol]139 mmol/L Uvtjfc084-817XfbnmwhnnFairfield Medical Center on above:Order Comment: Specimen Type: BLOOD SPECIMENOrdering Facility: [facility] Address:[address] [place], [place] [address]Performed By: #### 44363-2 ####[facility] LABCLIA [id number] [place] [address] Urea nitrogen [Mass/Vol]13 mg/dLNormal9-24[facility] on above:Order Comment: Specimen Type: BLOOD SPECIMENOrdering Facility: [facility] Address:[address] [place], [place] [address]Performed By: #### 89202-7 ####[facility] LABCLIA [id number] [place], [place] [address]Laeefi SerPl-mCncon 23-61-8540Xnrncipr [Mass/Vol]7.3 ug/dLNormal4.8-19.5CCorey Hospital on above:Order Comment: Specimen Type: BLOOD SPECIMENOrdering Facility: [facility] Address:[address] [place], [place] [address]Result Comment: Provided reference range is from 6-10 AM sample collection time.Cortisol Reference Range: 6-10 AM = 4.8-19.5 ug/dL, 4-8 PM = 2.5-11.9 ug/dLPerformed By: #### 3016-3, 2143-6 ####[facility] LABCLIA [id number] [facility] [id number] Kelly StreetA1c (Bld)on 07-06-7867Etfitfb glucose Estimated from glycated hemoglobin (Bld) [Mass/Vol]123 mg/dLNormal [facility] on above:Order Comment: Specimen Type: BLOOD SPECIMENOrdering Facility: [facility] Address:[address] [place], [place] [address]Result Comment: eAG: (Estimated average glucose) is a calculated value from HgbA1c and is assisted sales representative of the average blood glucose level in the last 2-3 month period.Performed By: #### 21210-0 ####[facility] LABIA [id number] [address] STATES OF VGSHCWTOgJ1z (Bld) [Mass fraction]5.9 %High4.3-5.6 [facility] on above:Order Comment: Specimen Type: BLOOD SPECIMENOrdering Facility: [facility] Address:[address] [place], [place] [address]Result Comment: [place] Diabetes Association guidelines indicate that patients with HgbA1c in the range 5.7-6.4% are at increased risk for development of diabetes, and intervention by lifestyle modification may be beneficial. HgbA1c greater or equal to 6.5% is considered diagnostic of diabetes.Performed By: #### 12481-5 ####[facility] LABIA [id number] [place] [address] [place] TSH SerPl-aCncon 27-59-6159LTE Qn3.050 m[IU]/LNormal0.270-4.200[facility] on above:Order Comment: Specimen Type: BLOOD SPECIMENOrdering Facility: [facility] Address:[address] [place], [place] [address]Performed By: #### 3016-3, 2143-6 ####[facility] LABIA [id number] [place] [address] [place] CNOVon 63-97-5614GYFCIfoflpXqxxgruso Clinic ClevelandCNPNon 82-52-2247LHRJLdiwtu [facility] CBC W AUTO DIFF BLDon 81-32-2679Bizpazllt/100 WBC (Bld)0.7 %[facility] BASOPHILS # BLD AUTO0.07NIHardin County Medical Center DIFFERENTIAL METHOD BLDAutoNOMUniversity Health Truman Medical Center EOSINOPHIL # BLD AUTO1.51HighNINF [facility] LYMPHOCYTES # BLD AUTO2.81[facility] MONOCYTES # BLD AUTO1.00HighNINFMineral Area Regional Medical Center NEUTROPHILS # BLD AUTO4.33[facility] NRBC # BLD AUTO<0.01NINFMineral Area Regional Medical Center NRBC/100 WBC BLD-RTO0.0/100 WBCMineral Area Regional Medical Center PLATELET # BLD [id number] Area Regional Medical Center PMV BLD AUTO8.5 fLLow9.0 - 12.7 fLMineral Area Regional Medical Center WBC # BLD AUTO9.83NOSSM Health CareEosinophils/100 WBC (Bld)15.4 %[facility] HealthErythrocyte distribution width (RBC) [Ratio]13.6 % 11.5 - 15.0 %[facility] HealthHematocrit (Bld) [Volume fraction]31.3 %Low39.0 - 51.0 %[facility] HealthHemoglobin (Bld) [Mass/Vol]10.6 g/dLLow13.0 - 17.0 g/dLFreeman Health System GRANULOCYTES # BLD AUTO0.11HighNILincoln County Health System GRANULOCYTES/LEUK NFR BLD AUTO1.1 %[facility] HealthInterpretation and review of laboratory resultsAbnormalCrittenton Behavioral HealthLymphocytes/100 WBC (Bld)28.6 %[facility] Institute [facility] St. LouisH (RBC) [Entitic mass]29.5 pg26.0 - 34.0 pgThe [facility] Institute of St. LouisHC (RBC) [Mass/Vol]33.9 g/dL30.5 - 36.0 g/dLThe Rehabilitation Institute of St. LouisV (RBC) [Entitic vol]87.2 fL 80.0 - 100.0 fLCrittenton Behavioral HealthMonocytes/100 WBC (Bld)10.2 %[facility] Neutrophils/100 WBC (Bld)44.0 %[facility] HealthRBC (Bld) [#/Vol]3.59 10*6/uLLow 4.20 - 6.00 m/uLSALT LAKE [facility] HealthcareSpecimen Type: BLOOD SPECIMEN [facility] Address: [place] [address] Original Ordering Provider: LO SERRATOMineral Area Regional Medical Center CBC W AUTO DIFF BLDon 45-37-6124Tueukbgdd/100 WBC (Bld)0.4 %[facility] BASOPHILS # BLD AUTO0.03NIHardin County Medical Center DIFFERENTIAL METHOD BLDAutoNOMUniversity Health Truman Medical Center EOSINOPHIL # BLD AUTO0.30NIHardin County Medical Center LYMPHOCYTES # BLD AUTO1.65[facility] MONOCYTES # BLD AUTO0.23NIHardin County Medical Center NEUTROPHILS # BLD AUTO4.46[facility] NRBC # BLD AUTO<0.01NIHardin County Medical Center NRBC/100 WBC BLD-RTO0.0/100 WBCMineral Area Regional Medical Center PLATELET # BLD [id number] Area Regional Medical Center PMV BLD AUTO9.8 fL9.0 - 12.7 fLMineral Area Regional Medical Center WBC # BLD AUTO6.69[facility] HealthEosinophils/100 WBC (Bld)4.5 %[facility] Erythrocyte distribution width (RBC) [Ratio]13.0 %11.5 - 15.0 %[facility] Hematocrit (Bld) [Volume fraction]30.4 %Low39.0 - 51.0 %[facility] Hemoglobin (Bld) [Mass/Vol]10.6 g/dLLow13.0 - 17.0 g/dLFreeman Health System GRANULOCYTES # BLD AUTO<0.03NILincoln County Health System GRANULOCYTES/LEUK NFR BLD AUTO0.3 %[facility] HealthInterpretation and review of laboratory resultsAbnormal [facility] HealthLymphocytes/100 WBC (Bld)24.7 %[facility] Institute [facility] St. LouisH (RBC) [Entitic mass]29.9 pg26.0 - 34.0 pgThe [facility] Institute of St. LouisHC (RBC) [Mass/Vol]34.9 g/dL30.5 - 36.0 g/dLThe Rehabilitation Institute of St. LouisV (RBC) [Entitic vol]85.9 fL80.0 - 100.0 fLCrittenton Behavioral HealthMonocytes/100 WBC (Bld)3.4 %[facility] HealthNeutrophils/100 WBC (Bld) 66.7 %[facility] HealthRBC (Bld) [#/Vol]3.54 10*6/uLLow4.20 - 6.00 m/uLCrittenton Behavioral HealthSpecimen Type: BLOOD SPECIMEN [facility] Address: [address] [place] [address] Original Ordering Provider: LO SERRATOMineral Area Regional Medical Center CBC W AUTO DIFF BLDon 43-74-6569Yurzvznxh/100 WBC (Bld)0.5 %[facility] BASOPHILS # BLD AUTO0.06NIHardin County Medical Center DIFFERENTIAL METHOD BLDAutoNOMUniversity Health Truman Medical Center EOSINOPHIL # BLD AUTO0.47[facility] LYMPHOCYTES # BLD AUTO2.79[facility] MONOCYTES # BLD AUTO0.87[facility] NEUTROPHILS # BLD AUTO6.77[facility] NRBC # BLD AUTO<0.01NIHardin County Medical Center NRBC/100 WBC BLD-RTO0.0/100 WBCMineral Area Regional Medical Center PLATELET # BLD [id number] Area Regional Medical Center PMV BLD AUTO9.2 fL9.0 - 12.7 fLMineral Area Regional Medical Center WBC # BLD AUTO11.01[facility] Hospital [facility] ScrantonEosinophils/100 WBC (Bld)4.3 %[facility] Erythrocyte distribution width (RBC) [Ratio]13.5 %11.5 - 15.0 %[facility] Hematocrit (Bld) [Volume fraction]35.2 %Low39.0 - 51.0 %[facility] Hemoglobin (Bld) [Mass/Vol]12.0 g/dLLow13.0 - 17.0 g/dLFreeman Health System GRANULOCYTES # BLD AUTO0.05NILincoln County Health System GRANULOCYTES/LEUK NFR BLD AUTO 0.5 %[facility] HealthInterpretation and review of laboratory resultsAbrmRiddle HospitalLymphocytes/100 WBC (Bld)25.3 %[facility] Institute [facility] St. LouisH (RBC) [Entitic mass] 29.6 pg26.0 - 34.0 pgThe [facility] Institute [address] LouisHC (RBC) [Mass/Vol]34.1 g/dL30.5 - 36.0 g/dLThe Rehabilitation Institute of St. LouisV (RBC) [Entitic vol]86.7 fL80.0 - 100.0 fLCrittenton Behavioral Health Monocytes/100 WBC (Bld)7.9 %[facility] HealthNeutrophils/100 WBC (Bld)61.5 %[facility] Behavioral HealthRBC (Bld) [#/Vol]4.06 10*6/uLLow4.20 - 6.00 m/uLCrittenton Behavioral Health Specimen Type: BLOOD SPECIMEN [facility] Address: [address] [place] [address] Original Ordering Provider: LO MOREIRASSM Health CareANES POSTPROC EVALon 63-63-7062AVFL POSTPROC EVALHNO ID: [id number] Author: AISHA BRIONES MD Service: Anesthesiology Author Type: Anesthesiologist Type: Anesthesia Postprocedure Evaluation Filed: 11/01/2023 13:14 Note Text: POST ANESTHESIA EVALUATION NOTE : 1955 Procedure Summary Date: 11/01/23 Room / Location: [facility] / GI Anesthesia Start: 1210 Anesthesia Stop: 1313 Procedure: [...] November 01, 2023 TIME: 1:14 PM CSN: [id number] England [facility]aconess [facility] PRE-OPon 67-42-8207MCBS PRE-OPHNO ID: [id number] Author: YIMI RODRIGUEZ DO Service: Anesthesiology Author [...] and consent discussed: yes. Patient / Responsible Republican agrees to proceed: yes Patient / Surrogate [...] November 01, 2023 TIME: 11:43 AM CSN: [id number] HospitalANES PRE-OPHNO ID: [id number] Author: AISHA BRIONES MD Service: Anesthesiology Author [...] and consent discussed: yes. Patient / Responsible Republican agrees to proceed: yes Patient / Surrogate [...] November 01, 2023 TIME: 11:33 AM CSN: [id number] Memorial InfirmaryURSELIZABETH [facility] PROGon 11-01-2023 NURSING PRONO ID: [id number] Author: EMMA HARVEY RN Service: Nursing Author [...] REFERRAL (RECOMMENDATION): None Electronically Signed By: Emma HarveyRutland Heights State HospitalPT EDon 18-31-8849EP EDHNO ID: [id number] Author: FLORENTIN JC RN Service: Nursing Author Type: Registered [...] None REFERRAL (RECOMMENDATION): None Electronically Signed By: Florentin TravisGrafton State Hospitalamada 45-73-9069XDKJZEW PROGHNO ID: [id number] Author: TOMMIE MCFADDEN RN Service: Pulmonary Disease Author Type: Registered [...] Signed By: Tommie Mcfadden RN In Department: [facility] ENDOSCOPY - ENDO Time spent on patient education: 10 minutes.[facility] [address] SKULL TO THIGHon 58-79-8298AHS CT SKULL TO THIGHPET CT SKULL TO [...] by Felix Lopez MD on 10/21/2023 1:16 [facility] HospitalIR BIOPSY LUNG PERC LTon 73-34-4034PF BIOPSY LUNG PERC LTIR BIOPSY LUNG PERC [...] by Odette Baptiste MD on 10/05/2023 3:33 [facility] Hospitalurgical Pathologyon 30-90-0247Hmnpxsbs PathologyNoRiverside Methodist HospitalComment on above:Result Comment: [facility] [facility] [address] [place] [address] Surgical Pathology Consultation Amended Report Patient Name:ERIN PENA:1955 (Age: 67)Gender:MTaken:10/05/2023eported:10/11/2023hysician(s):Kassidy Villasenor CNP ([phone])Copy To:ODETTE BAPTISTE MDAession #:[id number]. Rec. #:[id number]: #[id number] Amended Final Pathologic Diagnosis Lung, left lower [...] case was signed out, an oncology database software technician, Liliya Santana, notified me that the tumor should be located in left lower lobe. Report Electronically Signed Out rg/4Rbrianne Mendoza MD Interpretation performed at [facility], [address], [place] [address], License number: [id number]. Clinical History Left upper lobe mass. Gross Description Received in formalin labeled VOLLMAR, left lung biopsy are six frd-jbctm-mxfh barger delicate needle core segments of soft tissue with adherent hemorrhagic material, from 0.6-1.4 cm in length. The specimens are submitted entirely in cassettes A and B. (2, ns, [id number], m5) Heather jkh/10/05/2023SSI Specimen(s) Received Left lung core biopsy Fee Codes(s): 1; 17960, 41732, 18317(3)XR CHEST 1 VWon [id number] CHEST 1 VWXR CHEST 1 VW Single view chest History: Status post lung biopsy Comparison: X-ray 10/06/2011 Findings: Single portable view of the chest. Cardiomediastinal silhouette and pulmonary vasculature are within normal limits. Left upper lobe lung mass. Right lung is clear. No pneumothorax. Impression: Left upper lobe lung mass, no definite pneumothorax status post biopsy. Finalized by Enoc Chen on 10/05/2023 3:30 PMNormalDetwiler Memorial Hospitalca [facility] COVID-19 PCRon [id number]-CoV-2, NAANot DetectedNormalNot DetectedThe [facility] St. John Medical CenterComment on above:Result Comment: This nucleic acid amplification test was developed and its performance characteristics determined by [employer] Nucleic acid amplification tests include PCR and [...] in this assay.Performed By: #### CVDPCR #### 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 COMPARISON: None. ACCESSION NUMBER(S): [id number] ORDERING CLINICIAN: MOLLY RAY TECHNIQUE: T2, FLAIR, [...] disease including hypertension and diabetes. Interpreted within [place], [place] Electronically signed by: SHAHANA RAY MD, PHDWayne Memorial HospitalRENAL FUNCTION PANELon [id number] [Mass/Vol]4.6 g/dLNormal3.4 - 5.0[facility] HospitalComment on above:Performed By: #### RENAL #### [facility] [address] [place], [place] [address]Iwfdl gap [Moles/Vol]13 mmol/PKuevxx33 - 20[facility] HospitalComment on above:Performed By: #### RENAL #### [facility] [address] [place], [place] [address]Xahtvcj [Mass/Vol]9.8 mg/dLNormal8.6 - 10.6[facility] HospitalComment on above:Performed By: #### RENAL #### [facility] [address] [place], [place] [address]Xthdilhc [Moles/Vol]100 mmol/GDwzwjo76 - 107[facility] HospitalComment on above:Performed By: #### RENAL #### [facility] [address] [place], [place] [address]Uxryajmehv [Mass/Vol]0.60 mg/dLNormal0.50 - 1.30[facility] HospitalComment on above:Performed By: #### RENAL #### [facility] [address] [place], [place] [address]VHV-UJUWLPK AM.>60Normal>60[facility] HospitalComment on above:Result Comment: CALCULATIONS OF ESTIMATED GFR ARE PERFORMED USING THE MDRD STUDY EQUATION FOR THE IDMS-TRACEABLE CREATININE METHODS. CLIN CHEM 2007;53:766-72Performed By: #### RENAL #### [facility] [address] [place], [place] [address]LCD-RKK AM.>60Normal>60[facility] Comment on above:Performed By: #### RENAL #### [facility] [address] [place], [place] [address]Azssskk [Mass/Vol]118 mg/tCKcde31 - 99[facility] HospitalComment on above:Performed By: #### RENAL #### [facility] [address] [place], [place] [address]CPW7 (Bld) [Moles/Vol]30 mmol/HLpobpa03 - 32[facility] HospitalComment on above:Performed By: #### RENAL #### [facility] [address] [place], [place] [address]Wyvyfgdji [Mass/Vol]3.6 mg/dLNormal2.5 - 4.9[facility] HospitalComment on above:Result Comment: The performance characteristics of phosphorus testing in heparinized plasma have been validated by the individual laboratory site where testing is performed. Testing on heparinized plasma is not approved by the FDA; however, such approval is not necessary.Performed By: #### RENAL #### [facility] [address] [place], [place] [address]Fnvpdavuo [Moles/Vol]3.9 mmol/LNormal3.5 - 5.3[facility] HospitalComment on above:Performed By: #### RENAL #### [facility] [address] [place], [place] [address]Eeyiku [Moles/Vol]139 mmol/XKpnxva769 - 145[facility] HospitalComment on above:Performed By: #### RENAL #### [facility] [address] [place], [place] [address]Ydxe nitrogen [Mass/Vol]13 mg/dLNormal6 - 23[facility] HospitalComment on above:Performed By: #### RENAL #### [facility] [address] [place] [address] Vital Signs Date TimeVital SignValuePerforming AhksijbkdJtuuxlaj83-55-7975 09:25-0400Body zetbnm009.64 cmDick Miranda MD Work Phone: [facility]10-06-2025 09:25-0400 Body mass index (BMI) [Ratio]31.4 kg/m2Dick Miranda MD Work Phone: [facility]10-06-2025 09:25-0400 Body mukqitdwmku85.3 [degF]Dick Miranda MD Work Phone: 1(340)603-[address] [place], [place] [address]10-06-2025 09:25-0400 Body sxdyuz98.16 kgDick Miranda MD Work Phone: 1(275)[address]10-06-2025 09:25-0400 Diastolic blood ohunuwoh66 mm[Hg]Dick Miranda MD Work Phone: 1(023)[address]10-06-2025 09:25-0400 Heart rate71 /Drea Miranda MD Work Phone: 1(725)[address]10-06-2025 09:25-0400 Respiratory rate16 /minDick Miranda MD Work Phone: 1(384)[address]10-06-2025 09:25-0400 SaO2% (BldA) [Mass fraction]94 %Dick Miranda MD Work Phone: 1(014)[address]16 [address]10-06-2025 09:25-0400 Systolic blood xceiwzpn056 mm[Hg]Dcik Miranda MD Work Phone: 1(934)[address]09-17-2025 13:45-0400 Body ofexlj940.64 cmBasia Vega MD Work Phone: 1(513)[address]09-17-2025 13:45-0400 Body mass index (BMI) [Ratio]29.8 kg/r6UwwaclfrBasia Vega MD Work Phone: 1(034)[address]09-17-2025 13:45-0400 Body fkqdlu80.91 kgBasia Vega MD Work Phone: 1(126)[address]09-17-2025 13:45-0400 Diastolic blood ekgnnnet16 mm[Hg]Basia Vega MD Work Phone: 1(560)[address]09-17-2025 13:45-0400 Heart rate81 /minBasia Vega MD Work Phone: 1(487)[address]09-17-2025 13:45-0400 Respiratory rate18 /minBasia Vega MD Work Phone: [facility]09-17-2025 13:45-0400 SaO2% (BldA) [Mass fraction]95 %Basia Vega MD Work Phone: [facility]09-17-2025 13:45-0400 Systolic blood sdjeneao556 mm[Hg]Basia Vega MD Work Phone: [facility]09-05-2025 11:44-0400 Body mass index (BMI) [Ratio]29.03 kg/l0DkxilLo Hancock MD Work Phone: [facility]09-05-2025 11:44-0400Body temperature 97 [degF]Lo Hancock MD Work Phone: [facility]09-05-2025 11:44-0400Body ikfjwj88.47 kgLo Hancock MD Work Phone: [facility]09-05-2025 11:44-0400Diastolic blood hddocgpg44 mm[Hg]Lo Hancock MD Work Phone: [facility]09-05-2025 11:44-0400Heart rate63 /min Lo Hancock MD Work Phone: [facility]09-05-2025 11:44-0400Respiratory rate 16 /minLo Hancock MD Work Phone: [facility]09-05-2025 11:44-3812InL0% (BldA) [Mass fraction]97 %Lo Hancock MD Work Phone: [facility]09-05-2025 11:44-0400Systolic blood gmclofrc970 mm[Hg]Lo Hancock MD Work Phone: [facility]08-25-2025 11:57-0400Diastolic blood jrhkebwd96 mm[Hg]Basia Vega MD Work Phone: 1(419)[address]08-25-2025 11:57-0400 Heart rate71 /Penelope Vega MD Work Phone: 1(013)[address] [place], [place] 5031008-25-2025 11:57-0400 Respiratory rate17 /Penelope Vega MD Work Phone: 1(412)[address] [place], [place] 5031008-25-2025 11:57-0400 SaO2% (BldA) [Mass fraction]97 %Basia Vega MD Work Phone: 1(913)[address]08-25-2025 11:57-0400 Systolic blood ykasjsee718 mm[Hg]Basia Vega MD Work Phone: 1(991)[address]08-25-2025 09:00-0400 Body tdbrrdfokdt80.7 [degF]Basia Vega MD Work Phone: 1(568)[address]08-25-2025 06:00-0400 Body qjiwum32.4 kgBasia Vega MD Work Phone: 1(686)[address]08-23-2025 20:38-0400 Body kfwjmxahpdg61.8 [degF]Basia Vega MD Work Phone: 1(241)[address] [place], [place] 5031008-23-2025 20:38-0400 Diastolic blood eveksbqo30 mm[Hg]Basia Vega MD Work Phone: 1(964)75153 [address]08-23-2025 20:38-0400 Heart rate66 /Penelope Vega MD Work Phone: 1(214)[address]08-23-2025 20:38-0400 Respiratory rate18 /Penelope Vega MD Work Phone: 1(874)[address]08-23-2025 20:38-0400 SaO2% (BldA) [Mass fraction]95 %Basia Vega MD Work Phone: 1(699)[address]08-23-2025 20:38-0400 Systolic blood tljquseu104 mm[Hg]Basia Vega MD Work Phone: [facility]08-23-2025 14:10-0400 Body hnegsc454.64 cmBasia Vega MD Work Phone: [facility]08-23-2025 14:10-0400 Body vhrsqu22.7 kgBasia Vega MD Work Phone: [facility]08-13-2025 10:30-0400 Body .6 cmDick Miranda MD Work Phone: [facility] HealthCxikrfhryv75-17-5796 10:30-0400Body mass index (BMI) [Ratio]28.57 kg/m2Dick Miranda MD Work Phone: [place] [address]Fxmyfnqgwu20-44-8869 10:30-0400Body temperature 97.81 [degF]Dick Miranda MD Work Phone: [facility] HealthTikpmhhrss95-90-3745 10:30-0400Body uuxssq36.29 kgDick Miranda MD Work Phone: [facility] HealthEtbnxwlzpi22-47-7151 10:30-0400Diastolic blood ubpeotxx26 mm[Hg]Dick Miranda MD Work Phone: [facility] HealthEjtlaecwji48-11-0206 10:30-0400Heart rate64 /min Dick Miranda MD Work Phone: [place] [address]Driqqowwpt81-66-2237 10:30-0400Respiratory rate20 /minDick Miranda MD Work Phone: [place] [address]Rbeqxzrgjf55-49-9937 10:30-8870SaU7% (BldA) [Mass fraction]95 %Dick Miranda MD Work Phone: [facility] HealthDrrbwmdkjb61-62-8654 10:30-0400Systolic blood duuzpdms834 mm[Hg]Dick Miranda MD Work Phone: [facility] HealthZqduikiips81-52-8731 13:36-0400Body qbhaww468.6 cmChukwuedeon Nkadi MD Work Phone: 1(591)098[facility]56[facility]07-23-2025 13:36-0400Body mass index (BMI) [Ratio]28.41 kg/c0JkyhboemsjvNeha Garcia MD Work Phone: [phone]07-23-2025 13:36-0400Body .83 kgNeha Garcia MD Work Phone: 1(769)[address]07-23-2025 13:36-0400Diastolic blood cmczvqar56 mm[Hg]Neha Garcia MD Work Phone: 1(834)8[address]07-23-2025 13:36-0400Heart rate 64 /minNeha Garcia MD Work Phone: 1(206)[address]07-23-2025 13:36-5442ToL5% (BldA) [Mass fraction]95 %Neha Garcia MD Work Phone: 1(058)[address]07-23-2025 13:36-0400Systolic blood nywwnmkp563 mm[Hg]Neha Garcia MD Work Phone: [facility]06-27-2025 14:23-0400Body mass index (BMI) [Ratio]28.93 kg/m2Jack Hoang MD Work Phone: [facility]06-27-2025 14:23-0400Body temperature 98.2 [degF]Jack Hoang MD Work Phone: [facility]06-27-2025 14:23-0400Body fuqteo10.2 kgJack Hoang MD Work Phone: [facility]06-27-2025 14:23-0400Diastolic blood usfmovfx64 mm[Hg]Jack Hoang MD Work Phone: [facility]06-27-2025 14:23-0400Heart rate65 /min Jack Hoang MD Work Phone: [facility]06-27-2025 14:23-0400Respiratory rate 18 /minSryan Hoang MD Work Phone: [facility]06-27-2025 14:23-6680QdE3% (BldA) [Mass fraction]95 %Jack Hoang MD Work Phone: [facility]06-27-2025 14:23-0400Systolic blood tewnivsd712 mm[Hg]Jack Hoang MD Work Phone: [facility]06-02-2025 09:57-0400Body dbutxw185.6 cmBina Griffin DO Work Phone: 1(188)[facility] [employer] Ulolpl77-04-9571 09:57-0400Body mass index (BMI) [Ratio]28.25 kg/m2Bina Griffin DO Work Phone: 1(642)[facility]06-02-2025 09:57-0400Body oqncbn98.38 kgBina Griffin DO Work Phone: 1(101)[facility]06-02-2025 09:57-0400Diastolic blood mpoxhwon48 mm[Hg]Bina Griffin DO Work Phone: 1(360)[facility]06-02-2025 09:57-0400Heart rate 57 /minBina Griffin DO Work Phone: 1(075)[facility]06-02-2025 09:57-5663VnU5% (BldA) [Mass fraction]96 %Bina Griffin DO Work Phone: 1(658)[facility]06-02-2025 09:57-0400Systolic blood mm[Hg]Bina Griffin DO Work Phone: 1(726)[facility] [employer] Tvkmlq60-80-6867 13:24-0400Body mass index (BMI) [Ratio]30.05 kg/j2EieydMichelle Mejia APRN.CNP Work Phone: [facility]05-16-2025 13:24-0400Body temperature 97.11 [degF]Michelle Mejia APRN.CNP Work Phone: [facility]05-16-2025 13:24-0400Body okuxdd37.3 kgMichelle Mejia CANDLES POURER.PADDING MACHINE OPERATOR Work Phone: [facility]05-16-2025 13:24-0400Diastolic blood zrjjnlhe81 mm[Hg]Michelle Mejia CANDLES POURER.PADDING MACHINE OPERATOR Work Phone: [facility]05-16-2025 13:24-0400Heart rate68 /min Michelle Mejia CANDLES POURER.PADDING MACHINE OPERATOR Work Phone: [facility]05-16-2025 13:24-0400Respiratory rate 18 /minMichelle Mejia CANDLES POURER.PADDING MACHINE OPERATOR Work Phone: [facility]05-16-2025 13:24-8985ZtZ5% (BldA) [Mass fraction]97 %Michelle Mejia CANDLES POURER.PADDING MACHINE OPERATOR Work Phone: [facility]05-16-2025 13:24-0400Systolic blood mm[Hg]Michelle Mejia CANDLES POURER.PADDING MACHINE OPERATOR Work Phone: [facility]04-11-2025 13:35-0400Body nqkadc716.5 cm[facility] CANDLES POURER.PADDING MACHINE OPERATOR Work Phone: cAv[facility] HospitalKlsrvk33-70-1086 13:35-0400Body mass index (BMI) [Ratio]30.12 kg/p8NovyqqpzC[facility] CANDLES POURER.PADDING MACHINE OPERATOR Work Phone: [phone] Health System Gal[facility] HospitalIcgbsc60-22-5565 13:35-0400Body temperature 97.7 [degF][facility] CANDLES POURER.PADDING MACHINE OPERATOR Work Phone: [phone] [address]-11-2025 13:35-0400Body bplisf16.5 kgC[facility] CANDLES POURER.PADDING MACHINE OPERATOR Work Phone: [phone] [address]-11-2025 13:35-0400Diastolic blood wvyjefmk02 mm[Hg][facility] CANDLES POURER.PADDING MACHINE OPERATOR Work Phone: [phone] [address]-11-2025 13:35-0400Heart rate66 /min Joey Jim CANDLES POURER.PADDING MACHINE OPERATOR Work Phone: [place] [address]-11-2025 13:35-0400Respiratory rate 16 /minKimberjessica Scott CANDLES POURER.PADDING MACHINE OPERATOR Work Phone: [place] [address]-11-2025 13:35-0400Systolic blood yrnwtmpe397 mm[Hg]Joey Scott CANDLES POURER.PADDING MACHINE OPERATOR Work Phone: [place] [address]-11-2025 13:23-0400Body sdlxuv348.5 cmMichelle Mejia CANDLES POURER.PADDING MACHINE OPERATOR Work Phone: [place] [address]-11-2025 13:23-0400Body mass index (BMI) [Ratio]30.01 kg/o9JsiucMichelle Mejia APRN.PADDING MACHINE OPERATOR Work Phone: [place] [address]-11-2025 13:23-0400Body temperature 97.59 [degF]Michelle Mejia CANDLES POURER.PADDING MACHINE OPERATOR Work Phone: [place] [address]-11-2025 13:23-0400Body wamzkh35.2 kgMichelle Mejia APRN.PADDING MACHINE OPERATOR Work Phone: [place] [address]-11-2025 13:23-0400Diastolic blood thdqixta13 mm[Hg]Michelle Mejia CANDLES POURER.PADDING MACHINE OPERATOR Work Phone: [place] [address]-11-2025 13:23-0400Heart rate66 /min Michelle Mejia CANDLES POURER.PADDING MACHINE OPERATOR Work Phone: [place] [address]-11-2025 13:23-0400Respiratory rate 16 /minMichelle Mejia APRN.PADDING MACHINE OPERATOR Work Phone: [place] [address]-11-2025 13:23-2659UmS6% (BldA) [Mass fraction]97 %Michelle Mejia CANDLES POURER.PADDING MACHINE OPERATOR Work Phone: [place] [address]-11-2025 13:23-0400Systolic blood mm[Hg]Mcihelle Mejia CANDLES POURER.PADDING MACHINE OPERATOR Work Phone: [facility]03-14-2025 12:52-0400Body dfhzme630.5 cmVcayden Hancock MD Work Phone: [place] [facility] HospitalComment on above:verified no shoes 05-18-2024 12:52-0400Body mass index (BMI) [Ratio]29.58 kg/r1TetkvLo Hancock MD Work Phone: [facility]03-14-2025 12:52-0400Body temperature 97.11 [degF]Lo Hancock MD Work Phone: [facility]03-14-2025 12:52-0400Body zjycmq93 kg Lo Hancock MD Work Phone: [facility]03-14-2025 12:52-0400Diastolic blood mm[Hg]Lo Hancock MD Work Phone: [facility]03-14-2025 12:52-0400Heart rate65 /min Lo Hancock MD Work Phone: [facility]03-14-2025 12:52-0400Respiratory rate 16 /minLo Hancock MD Work Phone: [facility]03-14-2025 12:52-5217ZiR0% (BldA) [Mass fraction]96 %Lo Hancock MD Work Phone: [facility]03-14-2025 12:52-0400Systolic blood elkwkkuv826 mm[Hg]Lo Hancock MD Work Phone: [facility]02-26-2025 10:08-0500Body mass index (BMI) [Ratio]29.44 kg/m2Jack Hoang MD Work Phone: [facility]02-26-2025 10:08-0500Body temperature 96.69 [degF]Jack Hoang MD Work Phone: [facility]02-26-2025 10:08-0500Body srcscu50.7 kgJack Hoang MD Work Phone: [facility]02-26-2025 10:08-0500Diastolic blood qckynkro19 mm[Hg]Jack Hoang MD Work Phone: [facility]02-26-2025 10:08-0500Heart rate64 /min Jack Hoang MD Work Phone: [facility]02-26-2025 10:08-0500Respiratory rate 18 /minSryan Hoang MD Work Phone: [facility]02-26-2025 10:08-2328QuS6% (BldA) [Mass fraction]95 %Jack Hoang MD Work Phone: [facility]02-26-2025 10:08-0500Systolic blood yvpkivaz052 mm[Hg]Jack Hoang MD Work Phone: [facility]02-12-2025 10:08-0500Body guwphs604.6 cmDick Miranda MD Work Phone: [facility] HealthOaqcyqqvdr96-09-0760 10:08-0500Body mass index (BMI) [Ratio]30.51 kg/m2Dick Miranda MD Work Phone: [facility] HealthUsjeelqzvh87-36-0310 10:08-0500Body temperature 97.5 [degF]Dick Miranda MD Work Phone: [facility] HealthClpnfcbrsu47-70-6616 10:08-0500Body tpfxry73.73 kgDick Miranda MD Work Phone: [place] [address]Qvkkyajwum35-04-4757 10:08-0500Diastolic blood kugancoq20 mm[Hg]Dick Miranda MD Work Phone: [place] [address]Urjojguehx95-35-8988 10:08-0500Heart rate76 /min Dick Miranda MD Work Phone: [facility] HealthEbsgnpsjli50-17-4205 10:08-0500Respiratory rate18 /minDick Miranda MD Work Phone: [facility] HealthAnocsqgbeu03-18-6837 10:08-5011OvC4% (BldA) [Mass fraction]92 %Dick Miranda MD Work Phone: [facility] HealthBdbiqwmpul37-49-5155 10:08-0500Systolic blood eiezsvcf521 mm[Hg]Dick Miranda MD Work Phone: [facility] HealthClscoighte01-65-9283 13:23-0500Body bzrzyd211.6 cmVcayden Hancock MD Work Phone: [facility]02-05-2025 13:23-0500Body mass index (BMI) [Ratio]30.05 kg/o0OwofuLo Hancock MD Work Phone: [facility]02-05-2025 13:23-0500Body temperature 98.01 [degF]Lo Hancock MD Work Phone: [facility]02-05-2025 13:23-0500Body .4 kgLo Hancock MD Work Phone: [facility]02-05-2025 13:23-0500Diastolic blood atypbuyh80 mm[Hg]Lo Hancock MD Work Phone: [facility]02-05-2025 13:23-0500Heart rate61 /min Lo Hancock MD Work Phone: [facility]02-05-2025 13:23-0500Respiratory rate 16 /minLo Hancock MD Work Phone: [facility]02-05-2025 13:23-9023LhV3% (BldA) [Mass fraction]96 %Lo Hancock MD Work Phone: [facility]02-05-2025 13:23-0500Systolic blood wvsginrl855 mm[Hg]Lo Hancock MD Work Phone: [facility]02-03-2025 11:26-0500Body mass index (BMI) [Ratio]30.34 kg/m2Bina Griffin DO Work Phone: 1419)[facility]02-03-2025 11:26-0500Body mfrumh55.28 kgBina Griffin DO Work Phone: 1419)[facility]02-03-2025 11:26-0500Diastolic blood leaqawrt92 mm[Hg]Bina Griffin DO Work Phone: 1419)[facility]02-03-2025 11:26-0500Heart rate 70 /minBina Griffin DO Work Phone: 1419)[facility]02-03-2025 11:26-0500Systolic blood jyljaqmq825 mm[Hg]Bina Griffin DO Work Phone: 1419)[facility]01-17-2025 14:44-0500Body mass index (BMI) [Ratio]30.1 kg/v5Twqbssve Bundridge CANDLES POURER.PADDING MACHINE OPERATOR Work Phone: EAv[facility] HospitalTqhuyr33-86-5554 14:44-0500Body temperature 97.81 [degF]Joey Bundridge CANDLES POURER.PADDING MACHINE OPERATOR Work Phone: WAv[facility] Gal[facility] HospitalMjkbej67-24-3302 14:44-0500Body vylhsi51.6 kgKihu hu kam [facility] [place] CANDLES POURER.PADDING MACHINE OPERATOR Work Phone: FAv[facility] Gal[facility] HospitalBhovqc50-77-3052 14:44-0500Diastolic blood paaxhbgh04 mm[Hg]Joey Bundridge CANDLES POURER.PADDING MACHINE OPERATOR Work Phone: RAv[facility] HospitalVvxqqx81-29-6735 14:44-0500Heart rate74 /min Joey Bundridge CANDLES POURER.PADDING MACHINE OPERATOR Work Phone: ClevelC[facility] Luther[facility] HospitalOjvvdn94-00-5172 14:44-0500Respiratory rate 18 /minThe Institute Of Livingerly Bundridge CANDLES POURER.PADDING MACHINE OPERATOR Work Phone: AlevelC[facility] Luther[facility] HospitalTwrsqj87-75-5391 14:44-0929ZjU7% (BldA) [Mass fraction]96 %Joey Bundridge CANDLES POURER.PADDING MACHINE OPERATOR Work Phone: cAv[facility] HospitalTuwijt58-88-0443 14:44-0500Systolic blood aeucvcis951 mm[Hg][facility] CANDLES POURER.PADDING MACHINE OPERATOR Work Phone: cAv[facility] Gal[facility] HospitalAjdgwm05-45-0931 12:55-0500Body mass index (BMI) [Ratio]30.25 kg/m2Jack Hoang MD Work Phone: [facility]01-06-2025 12:55-0500Body temperature 97.39 [degF]Jack Hoang MD Work Phone: 1(024)9-[address] [place], [place] 5665001-06-2025 12:55-0500Body ntnber62 kg Jack Hoang MD Work Phone: 1(555)1-[address] [place], [place] 5665001-06-2025 12:55-0500Diastolic blood rwkcacfu71 mm[Hg]Jack Hoang MD Work Phone: 1(267)8-[address] [place], [place] 5665001-06-2025 12:55-0500Heart rate71 /min Jack Hoang MD Work Phone: 1(037)244-[address] [place], [place] 5665001-06-2025 12:55-0500Respiratory rate 18 /minSryan Hoang MD Work Phone: [facility]01-06-2025 12:55-5135IvL1% (BldA) [Mass fraction]95 %Jack Hoang MD Work Phone: [facility]01-06-2025 12:55-0500Systolic blood kdjuwncz859 mm[Hg]Jack Hoang MD Work Phone: [facility]01-02-2025 10:24-0500Body .6 cmRobert King NP Work Phone: [facility] HealthVyonkuthan97-08-1976 10:24-0500Body mass index (BMI) [Ratio]31.31 kg/z3QbddvRobert King DESK SERGEANT Work Phone: [facility] CareCvdnhihoip03-37-0730 10:24-0500Body powhoi26 kg Robert Knig DESK SERGEANT Work Phone: [facility] HealthMjgkwmmmch30-40-6651 10:19-0500Body fhaxjl909.6 Stephenie Owen MD Work Phone: [facility]12-30-2024 10:19-0500Body mass index (BMI) [Ratio]30.83 kg/y9DokfvGary Owen MD Work Phone: [facility]12-30-2024 10:19-0500Body zysvox87.64 kgGary Owen MD Work Phone: [facility]12-30-2024 10:19-0500Diastolic blood bpsmygkt41 mm[Hg]Gary Owen MD Work Phone: 1(066)517-[address] [place], [place] 4582712-30-2024 10:19-0500Heart rate 85 /minGary Owen MD Work Phone: 1(251)829-[address] [place], [place] 4582712-30-2024 10:19-6418CuI5% (BldA) [Mass fraction]96 %Gary Owen MD Work Phone: [facility]12-30-2024 10:19-0500Systolic blood mm[Hg]Gary Owen MD Work Phone: [facility]12-20-2024 14:35-0500Body mass index (BMI) [Ratio]30.57 kg/f7VjpnyLo Hancock MD Work Phone: [facility]12-20-2024 14:35-0500Body temperature 97.7 [degF]Lo Hancock MD Work Phone: [facility]12-20-2024 14:35-0500Body nilvlw87.9 kgLo Hancock MD Work Phone: [facility]12-20-2024 14:35-0500Diastolic blood avsrgjga64 mm[Hg]Lo Hancock MD Work Phone: [facility]12-20-2024 14:35-0500Heart rate69 /min Lo Hancock MD Work Phone: [facility]12-20-2024 14:35-0500Respiratory rate 18 /minLo Hancock MD Work Phone: [facility]12-20-2024 14:35-8486WuN9% (BldA) [Mass fraction]95 %Lo Hancock MD Work Phone: [facility]12-20-2024 14:35-0500Systolic blood mzdpohgu573 mm[Hg]Lo Hancock MD Work Phone: [facility]12-09-2024 13:06-0500Body mass index (BMI) [Ratio]30.83 kg/z8NqbynvOlegario Moreira MD Work Phone: 1(181)[facility]12-09-2024 13:06-0500Body fniblf16.64 kgOlegario Moreira MD Work Phone: 1(424)[facility]12-09-2024 13:06-0500Diastolic blood mm[Hg]Olegario Moreira MD Work Phone: 1(709)[facility]12-09-2024 13:06-0500Heart rate 72 /minSelise Moreira MD Work Phone: 1(650)[facility]12-09-2024 13:06-0500Systolic blood nidywihv875 mm[Hg]Olegario Moreira MD Work Phone: 1(481)[facility]2024 11:01-0500Body kstfxi628.6 cmLemaddy Oreilly MD Work Phone: [facility]2024 11:01-0500Body mass index (BMI) [Ratio]30.71 kg/s9FzbljppSavanah Oreilly MD Work Phone: [facility]2024 11:01-0500Body ebhpox59.3 Cam Oreilly MD Work Phone: [facility]2024 11:01-0500Diastolic blood ohmihcko60 mm[Hg]Savanah Oreilly MD Work Phone: [facility]2024 11:01-0500Heart rate75 /min Savanah Oreilly MD Work Phone: [facility]2024 11:01-6418EhE7% (BldA) [Mass fraction]100 %Savanah Oreilly MD Work Phone: [facility]2024 11:01-0500Systolic blood bucgckxr483 mm[Hg]Savanah Oreilly MD Work Phone: [facility]11-12-2024 10:28-0500Body npwyxz980.6 cmDick Miranda MD Work Phone: 1(029)991-[address] [place], [place] [address]Fjfldyical93-50-7715 10:28-0500Body mass index (BMI) [Ratio]31.31 kg/m2Dick Miranda MD Work Phone: 1(771)013-[address] [place], [place] [address]Wqampwqvfs58-56-8164 10:28-0500Body temperature 97.5 [degF]Dick Miranda MD Work Phone: [place] [address]Ffaevjhget15-50-2801 10:28-0500Body kg Dick Miranda MD Work Phone: [place] [address]Gkogvpurib94-51-3588 10:28-0500Diastolic blood prjtivdd85 mm[Hg]Dick Miranda MD Work Phone: [place] [address]Fgrjudvrhc09-59-2171 10:28-0500Heart rate81 /min Dick Miranda MD Work Phone: [place] [address]Vkvpfuhrnj62-97-7688 10:28-0500Respiratory rate20 /minDick Miranda MD Work Phone: 1(607) [phone] [address] StreetOxwjpkldug38-34-6286 10:28-8204PvF2% (BldA) [Mass fraction]95 %Dick Miranda MD Work Phone: [place] [address]Yzbgihlngz89-85-9931 10:28-0500Systolic blood mm[Hg]Dick Miranda MD Work Phone: [facility]Wqxphrnvcg20-15-7244 13:44-0400Body uzxcjq497.6 cmDick Miranda MD Work Phone: [facility] HealthXxdxddqorg09-75-3922 13:44-0400Body mass index (BMI) [Ratio]30.67 kg/m2Dick Miranda MD Work Phone: [facility] HealthLjvtnukzhp25-17-2283 13:44-0400Body temperature 97.81 [degF]Dick Miranda MD Work Phone: [place] [address]Aagztchcbw79-62-0465 13:44-0400Body oaurqe43.18 kgDick Miranda MD Work Phone: [facility] HealthQwegkdrrzq91-75-2622 13:44-0400Diastolic blood evahhxil95 mm[Hg]Dick Miranda MD Work Phone: [facility] HealthMcanfcrhzy43-57-7559 13:44-0400Heart rate90 /min Dick Miranda MD Work Phone: [place] [address]Qdoldiisyb02-87-7760 13:44-0400Respiratory rate22 /minDick Miranda MD Work Phone: [place] [address]Wftwvrpsqs54-17-0240 13:44-2215TiR8% (BldA) [Mass fraction]95 %Dick Miranda MD Work Phone: [place] [address]Avcdhsxrhf26-46-1637 13:44-0400Systolic blood cdpemdcx558 mm[Hg]Dick Miranda MD Work Phone: [place] [address]Edfmpjisoh68-06-0939 09:31-0400Body jtmkha667.5 cmVcayden Hancock MD Work Phone: [facility]10-23-2024 09:31-0400Body mass index (BMI) [Ratio]31.27 kg/x1RyswiLo Hancock MD Work Phone: [facility]10-23-2024 09:31-0400Body temperature 97.2 [degF]Lo Hancock MD Work Phone: [facility]10-23-2024 09:31-0400Body kywsth95.7 kgLo Hanocck MD Work Phone: [facility]10-23-2024 09:31-0400Diastolic blood bqitdrwj48 mm[Hg]Lo Hancock MD Work Phone: [facility]10-23-2024 09:31-0400Heart rate72 /min Lo Hanccok MD Work Phone: [facility]10-23-2024 09:31-0400Respiratory rate 16 /minLo Hancock MD Work Phone: [facility]10-23-2024 09:31-8912OaZ4% (BldA) [Mass fraction]99 %Lo Hancock MD Work Phone: [facility]10-23-2024 09:31-0400Systolic blood gylbhqzv199 mm[Hg]Lo Hancock MD Work Phone: [facility]10-18-2024 13:03-0400Body ihmoeo785.5 [facility] CANDLES POURER.PADDING MACHINE OPERATOR Work Phone: [facility] HospitalChhqhn84-01-8236 13:03-0400Body mass index (BMI) [Ratio]30.95 kg/h6TmckemkrC[facility] CANDLES POURER.PADDING MACHINE OPERATOR Work Phone: BAv[facility] HospitalTbvkfe42-16-2616 13:03-0400Body temperature 97.7 [degF][facility] CANDLES POURER.PADDING MACHINE OPERATOR Work Phone: [place] Zkvayi60-92-5298 13:03-0400Body oiifbi83.8 kgKiCount includes the [facility] CANDLES POURER.PADDING MACHINE OPERATOR Work Phone: CA[facility] HospitalIbnbsv35-05-1379 13:03-0400Diastolic blood tenurana17 mm[Hg][facility] CANDLES POURER.PADDING MACHINE OPERATOR Work Phone: [phone] HospitalZguymr41-17-2696 13:03-0400Heart rate78 /min [facility] CANDLES POURER.PADDING MACHINE OPERATOR Work Phone: YAv[facility] HospitalHxctqk34-06-0089 13:03-0400Respiratory rate 18 /min[facility] CANDLES POURER.PADDING MACHINE OPERATOR Work Phone: IAv[facility] HospitalEonunz89-66-9845 13:03-7010ZxW8% (BldA) [Mass fraction]96 %[facility] CANDLES POURER.PADDING MACHINE OPERATOR Work Phone: RA[facility] HospitalHmqdxf73-41-6073 13:03-0400Systolic blood kfptbwji127 mm[Hg][facility] CANDLES POURER.PADDING MACHINE OPERATOR Work Phone: GAv[facility] HospitalPfpmdu16-30-4024 09:33-0400Body rusexi320.5 cmVcayden Hancock MD Work Phone: [phone])[address] [place], [place] [address]2810-02-2024 09:33-0400Body mass index (BMI) [Ratio]30.52 kg/k2HqmdmLo Hancock MD Work Phone: 1(648)[address] [place], [place] 6[address]10-02-2024 09:33-0400Body temperature 97.81 [degF]Lo Hancock MD Work Phone: 1(069)[address] [place], [place] 6[address]10-02-2024 09:33-0400Body lfldyq32.6 kgLo Hancock MD Work Phone: 1(249)[facility] [place], [place] [address]65010-02-2024 09:33-0400Diastolic blood vixknrfe29 mm[Hg]Lo Hancock MD Work Phone: 1(028)4-[address] [place], [place] [address]010-02-2024 09:33-0400Heart rate73 /min Lo Hancock MD Work Phone: 1(759)949-[address] [place], [place] [address]65010-02-2024 09:33-0400Respiratory rate 16 /minLo Hancock MD Work Phone: 1(339)[facility] [place], [place] [address]010-02-2024 09:33-1473WxD1% (BldA) [Mass fraction]96 %Lo Hancock MD Work Phone: [facility]10-02-2024 09:33-0400Systolic blood xylewhmi767 mm[Hg]Lo Hancock MD Work Phone: [facility]09-11-2024 09:06-0400Body yxbnqd655.5 cmVcayden Hancock MD Work Phone: [facility] HospitalComment on above:verified by 2 vqganfezrj10-18-0289 09:06-0400Body mass index (BMI) [Ratio]29.36 kg/j4UywzbLo Hancock MD Work Phone: [facility]09-11-2024 09:06-0400Body temperature 97.9 [degF]Lo Hancock MD Work Phone: [phone]09-11-2024 09:06-0400Body .4 kgLo Hancock MD Work Phone: [facility]09-11-2024 09:06-0400Diastolic blood oggwtcyn51 mm[Hg]Lo Hancock MD Work Phone: [facility]09-11-2024 09:06-0400Heart rate67 /min Lo Hancock MD Work Phone: [facility]09-11-2024 09:06-0400Respiratory rate 16 /minLo Hancock MD Work Phone: [facility]09-11-2024 09:06-4737WjZ1% (BldA) [Mass fraction]95 %Lo Hancock MD Work Phone: [facility]09-11-2024 09:06-0400Systolic blood yzldylht337 mm[Hg]Lo Hancock MD Work Phone: [facility]09-04-2024 13:05-0400Body .6 Franky Oreilly MD Work Phone: [facility]09-04-2024 13:05-0400Body mass index (BMI) [Ratio]28.36 kg/f0JqqfeqySavanah Oreilly MD Work Phone: [facility]09-04-2024 13:05-0400Body fgizqy46.7 kgSavanah Oreilly MD Work Phone: [facility]09-04-2024 13:05-0400Diastolic blood bjoxnaee34 mm[Hg]Savanah Oreilly MD Work Phone: [facility]09-04-2024 13:05-0400Heart rate71 /min Savanah Oreilly MD Work Phone: [facility]09-04-2024 13:05-1315VaR5% (BldA) [Mass fraction]97 %Savanah Oreilly MD Work Phone: [facility]09-04-2024 13:05-0400Systolic blood wrdxzsia864 mm[Hg]Savanah Oreilly MD Work Phone: [facility]08-21-2024 14:29-0400Body tclaae998.6 cmPacc 2 Work Phone: [facility]08-21-2024 14:29-0400Body mass index (BMI) [Ratio]28.11 kg/m2Pacc 2 Work Phone: [facility]08-21-2024 14:29-0400Body temperature 98.29 [degF]Pacc 2 Work Phone: [facility]08-21-2024 14:29-0400Body yvvkbd38 kg Pacc 2 Work Phone: [facility]08-21-2024 14:29-0400Diastolic blood fcuatvei54 mm[Hg]Pacc 2 Work Phone: [facility]08-21-2024 14:29-0400Heart rate70 /min Pacc 2 Work Phone: [facility]08-21-2024 14:29-0400Respiratory rate 14 /minPacc 2 Work Phone: [facility]08-21-2024 14:29-0179WtL1% (BldA) [Mass fraction]98 %Pacc 2 Work Phone: [facility]08-21-2024 14:29-0400Systolic blood sworaaxv988 mm[Hg]Pacc 2 Work Phone: [facility]08-16-2024 16:13-0400Body temperature 97.11 [degF]Lo Hancock MD Work Phone: [facility]08-16-2024 16:13-0400Body .9 kgLo Hancock MD Work Phone: [facility]08-16-2024 16:13-0400Diastolic blood ijdypmpv69 mm[Hg]Lo Hancock MD Work Phone: [facility]08-16-2024 16:13-0400Heart rate77 /min Lo Hancock MD Work Phone: [facility]08-16-2024 16:13-0400Respiratory rate 18 /minLo Hancock MD Work Phone: [facility]08-16-2024 16:13-0434AdS5% (BldA) [Mass fraction]97 %Lo Hancock MD Work Phone: [facility]08-16-2024 16:13-0400Systolic blood mm[Hg]Lo Hancock MD Work Phone: [facility]08-15-2024 11:58-0400Body qgehgr278.6 Tiffany Lang DO Work Phone: [facility]08-15-2024 11:58-0400Body mass index (BMI) [Ratio]28.02 kg/q4NrhdenEstefany Lang DO Work Phone: [facility]08-15-2024 11:58-0400Body tmozxp89.74 kgEstefany Lang DO Work Phone: [facility] [employer] Lryttf29-60-3967 11:58-0400Diastolic blood aqxpzzrw67 mm[Hg]Estefany Lang DO Work Phone: [facility] [employer] Nwxxud83-15-5238 11:58-0400Heart rate 67 /minSfawn Lang DO Work Phone: [facility] [employer] Ykgkie52-23-0965 11:58-6851VyU7% (BldA) [Mass fraction]96 %Estefany Lang DO Work Phone: [facility] [employer] Rsdmlm79-09-5706 11:58-0400Systolic blood vokahocg094 mm[Hg]Estefany Lang DO Work Phone: [facility] [employer] Rvkmyl94-60-7167 15:31-0400Body .6 Derrick Abdi MD Work Phone: [facility]08-08-2024 15:31-0400Body mass index (BMI) [Ratio]28.36 kg/y4PeevbGerald Abdi MD Work Phone: [facility] [employer] Lipyci13-56-2722 15:31-0400Body fbpoempsyfg57.2 [degF]Gerald Abdi MD Work Phone: [facility] [employer] Gncatg76-13-7051 15:31-0400Body .65 kgGerald Abdi MD Work Phone: [facility]08-08-2024 15:31-0400Diastolic blood crfwdxva54 mm[Hg]Gerald Abdi MD Work Phone: [facility] [employer] Besrqj91-76-6694 15:31-0400Heart rate 71 /minGerald Abdi MD Work Phone: [facility]08-08-2024 15:31-0400 Respiratory rate18 /minGerald Abdi MD Work Phone: [facility] [employer] Qtqcds23-10-5599 15:31-2484EuX4% (BldA) [Mass fraction]98 %Gerald Abdi MD Work Phone: [facility]08-08-2024 15:31-0400Systolic blood reluabbe177 mm[Hg]Gerald Abdi MD Work Phone: [facility]07-29-2024 13:06-0400Diastolic blood yanqoies10 mm[Hg]Olegario Moreira MD Work Phone: 1(360)[facility]07-29-2024 13:06-0400Heart rate 68 /Álvaro Moreira MD Work Phone: 1(820)[facility]07-29-2024 13:06-0400Systolic blood jycgsxnk951 mm[Hg]Olegario Moreira MD Work Phone: 1(532)[facility]04-22-2024 09:46-0400Diastolic blood nmhakegb87 mm[Hg]Olegario Moreira MD Work Phone: 1(389)[facility]04-22-2024 09:46-0400Systolic blood gpqzzoyw451 mm[Hg]Olegario Moreira MD Work Phone: 1(061)[facility]04-22-2024 09:44-0400Body .2 cmSelise Moreira MD Work Phone: 1(531)[facility]04-22-2024 09:44-0400Body mass index (BMI) [Ratio]28.19 kg/l8DncyknOlegario Moreira MD Work Phone: 1(520)[facility]04-22-2024 09:44-0400Body lvliyp51.65 kgOlegario Moreira MD Work Phone: 1(344)[facility] HospitalComment on above:per patient 06-27-2023 09:44-0400Heart rate71 /Álvaro Moreira MD Work Phone: 1(153)[facility]04-22-2024 09:44-2958BtF6% (BldA) [Mass fraction]96 %Olegario Moreira MD Work Phone: 1(286)[facility]02-14-2024 11:31-0500Body etythg674.6 cmDick Miranda MD Work Phone: [facility] HealthGcxzbasgsy14-75-7499 11:31-0500Body mass index (BMI) [Ratio]29.54 kg/m2Dick Miranda MD Work Phone: [facility] HealthPbhudwqbtk31-95-9460 11:31-0500Body temperature 97.11 [degF]Dick Miranda MD Work Phone: [facility] HealthHvjhqrijzt26-83-3021 11:31-0500Body njdpej26.01 kgDick Miranda MD Work Phone: [facility] HealthSjoapagshy74-26-2023 11:31-0500Diastolic blood mbcmvpod24 mm[Hg]Dick Miranda MD Work Phone: [facility] HealthOdxobfeycx82-18-1307 11:31-0500Heart rate66 /min Dick Miranda MD Work Phone: [facility] HealthYhlrcziamc84-55-3495 11:31-5670BnQ6% (BldA) [Mass fraction]97 %Dick Miranda MD Work Phone: [facility] HealthCaoxibafby33-96-1215 11:31-0500Systolic blood mm[Hg]Dick Miranda MD Work Phone: [facility] Encounters Encounter DateEncounter TypeCare ProviderFacilityStart: 12-31-2024 End: 19-15-4571pimusxrbpiVwmgxbsSariah William MDFacility:[facility] Start: 12-10-2024 End: 74-72-7664yelwvmmmnfDrlv Naderer MD Work Phone: [facility] Work Phone: Start: 12-10-2024 End: 20-12-7634Byegdhz encounter procedureDick Miranda MD-[facility] Work Phone: Start: 02-06-3497Vdy-patient / Non-visitVivek Abhyankar MD-[facility] Work Phone: Start: 12-07-2024 End: 78-18-2447jpzrxivtkrTZGNTB ROODFacility:[facility]art: 11-30-2024 End: 54-91-9102rvnghnbtjdXXYYUJDW J BUNDRIDGEFacility:[facility] Start: 86-54-2269Gtj-patient / Non-visitLo Hancock MD-[facility] Work Phone: Start: 11-23-2024 End: 15-75-1877mwaysunxoqCSJJ A NADERERFacility:[facility] Campustart: 11-23-2024 End: 88-05-6188owpgwttbggODQNTC ROODFacility:[facility] Campustart: 11-21-2024 End: 51-43-6041rmefhoorzjPxeowmhu Diller MD Work Phone: [facility] Work Phone: Start: 11-21-2024 End: 90-66-3870Quwlqjt encounter procedureDick Miranda MD-[facility] Work Phone: Start: 11-20-2024 End: 28-22-4740yrbjvfpjoyGTRDOU MACEYERNot AvailableStart: 11-16-2024 End: 05-13-4177qhcbulzrddQOHI RAJANFacility:[facility] Campustart: 11-09-2024 End: 00-24-6130Vjfuzllqa encounterLo Hancock MD Work Phone: Cancer Appts MCComment on above:ResultsStart: 11-09-2024 End: 49-47-1093Npumsp outpatient visit 40 minutesLo Hancock MD Work Phone: Hematology/OncologyComment on above:Radiation-induced pulmonary fibrosis (HCC) (Primary Dx); Malignant neoplasm of unspecified part of unspecified bronchus or lung (HCC); Neuralgia; Pleural effusion, not elsewhere classified; Herpes zoster without complications; Encounter for follow-up examination after completed treatment for malignant neoplasm; alf (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Start: 11-09-2024 End: 35-81-6684zpyxtkirerFPCRI ABHYANKARFacility:[facility] Campustart: 60-61-3913Cwr-patient / Non-visitLo Hancock MD-[facility] Work Phone: Start: 24-67-4965jvffqndzolOBWFP ABHYANKAR Facility:[facility]art: 11-09-2024 End: 43-22-6339Soxscakxec hospital visit by physicianArrival Time Radiology Work Phone: Radiology Pet CTComment on above:Malignant neoplasm of unspecified part of unspecified bronchus or lung (HCC) [C34.90]Start: 11-06-2024 End: 14-84-8814Ncdvwkshi encounterNoemy Chicas RN Work Phone: Hematology/OncologyComment on above:Care Coordination (Lung Pain)Start: 10-30-2024 End: 96-34-9021Kkfwdyvfs encounterNoemy Chicas RN Work Phone: Hematology/OncologyComment on above:Care Coordination (Discharge Follow Up Call )Start: 10-29-2024 End: 50-79-6747Vxdslojxo encounterNoemy Chicas RN Work Phone: Hematology/OncologyComment on above:Care Coordination (Hospital Admission)Start: 10-27-2024 End: 68-64-4711Bugewedvbp and management of inpatientMichael R. Frings DO-[facility] Work Phone: Start: 55-34-9276Qux-patient / Non-visitEnoc Barron MD-[facility] Work Phone: Start: 10-26-2024 End: 11-45-3931Cdrqjojwm Result EncounterGeneric External Data ProviderNOMS External Department UnsolicitedStart: 10-26-2024 End: 72-47-7725Ilzjkuifx Result EncounterGeneric External Data ProviderNOMS External Department UnsolicitedStart: 20-90-8204zmgvjyikevRICB A NADERER Facility[facility]art: 10-26-2024 End: 57-64-0384Zdtwvdumls hospital visit by physicianLucasral Murali Kebede Mc Work Phone: RadiologyComment on above:Radiation-induced pulmonary fibrosis (HCC) [J70.1]Start: 10-25-2024 End: 54-90-7707Eyonuydwn encounterReshante Chicas RN Work Phone: Hematology/OncologyComment on above:Care Coordination (Lung Pain)Start: 10-24-2024 End: 41-33-3954Mafiih flowsheetMarshall Brink PTANOMS Tone Physical Therapy Start: 10-24-2024 End: 54-80-3301Uqmhav flowsheetMarshall Brink PTANOMS [facility] Physical Therapy Start: 10-24-2024 End: 69-46-1339btislatclnZzcbryjb Brink PTANOMS Tone Physical TherapyComment on above:Trochanteric bursitis of right hip (Primary Dx)Start: 10-17-2024 End: 99-14-9923Clbtbp Aleisha Miranda MD Work Phone: noms CWM FMStart: 10-17-2024 End: 63-77-7319Lxghhvyasmine Mirnada MD Work Phone: noms CWM FMStart: 10-17-2024 End: 68-11-4519wirqomtcpwMxxdhjw Kelbley PTANOMS Tone Physical TherapyComment on above:Trochanteric bursitis of right hip (Primary Dx)Start: 10-17-2024 End: 91-93-3569nevfctovslCRWY NADERERNot AvailableStart: 10-17-2024 End: 41-38-9944Joxngb outpatient visit 25 minutesDick Miranda MD Work Phone: noms CWM FMComment on above:Essential hypertension (Primary Dx); Chronic obstructive pulmonary disease, unspecified COPD type (HCC); Chemotherapy-induced neuropathy (HCC); 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); Primary insomnia; Trochanteric bursitis of right hipStart: 10-07-2024 End: 42-10-8383TjjolgYzeyn Campbellyaakov MCGOVERN Work Phone: [facility] Internal MedicineComment on above:Essential hypertension; Bilateral carotid artery stenosis; Occlusive disease, arterialStart: 10-01-2024 End: 40-21-4054Supflt Lien CALDERON [facility] Start: 10-01-2024 End: 19-25-6940Bbamwy Lien [facility]DERON [facility] Start: 10-01-2024 End: 34-15-4883qpggdfmaqrIjgltsdJuan A CALDERON T[facility] Physical TherapyComment on above:Trochanteric bursitis of right hip (Primary Dx)Start: 09-27-2024 End: 55-74-1584Lubnhy Lien CALDERON CI PTStart: 09-27-2024 End: 27-76-9011Yzgzwz Lien CALDERON CI PTStart: 09-27-2024 End: 23-71-0100xapehcfmphBxerrwuJuan A CALDERON CI PTComment on above: Trochanteric bursitis of right hip (Primary Dx)Start: 09-26-2024 End: 28-21-7143Hsgwaj outpatient visit 25 minutesGary Owen MD Work Phone: [facility] CardiologyComment on above: Essential hypertension (Primary Dx)Start: 09-26-2024 End: 00-76-7479chmlhkrvzjQSYGYEWJSGW O NKADIProMedica Kindred Hospitaltart: 09-25-2024 End: 28-55-1761Amnicmyxw encounterLisa Ariana [facility] Start: 09-24-2024 End: 96-76-0034Qgnemx Lien CALDERON CI PTStart: 09-24-2024 End: 89-76-2462Sqnyhv Lien CALDERON CI PTStart: 09-24-2024 End: 00-31-8716nhgtdqilniGmuawnv Lawrence PTANOMS CI PTComment on above: Trochanteric bursitis of right hip (Primary Dx)Start: 09-21-2024 End: 24-50-9129Vxxqlm flowsheetNilda Mayes PTANOMS CI PTStart: 09-21-2024 End: 88-93-8889Txlszj flowsheetMelcecilia Mayes PTANOMS CI PTStart: 09-21-2024 End: 77-54-4475mpnrmieemcXlioeic Kelbley PTANOMS CI PTComment on above: Trochanteric bursitis of right hip (Primary Dx)Start: 09-20-2024 End: 92-65-4555Coneos-up encounterArley King PA-C Work Phone: Hematology/OncologyComment on above:Care Coordination (Lab Results)Start: 09-19-2024 End: 88-34-2413Oonflloim Result EncounterGeneric External Data ProviderNOMS External Department UnsolicitedStart: 09-19-2024 End: 77-09-2966Qtbxbbtqb Result EncounterGeneric External Data ProviderNOMS External Department UnsolicitedStart: 09-19-2024 End: 94-11-5228PhudwwZmfy Naderer MD Work Phone: noms CWM FMComment on above:Primary insomnia; DDD (degenerative disc disease), cervicalCare Coordination (Fatigue)Start: 09-18-2024 End: 24-10-6683hbkzxbbuxiFgzdbbud Brink PTANOMS CI PTComment on above: Trochanteric bursitis of right hip (Primary Dx)Start: 09-18-2024 End: 03-31-6657Yhykdo flowsheetMarshall Brink PTANOMS CI PTStart: 09-18-2024 End: 03-86-9384Fupshr flowsheetMarshall Brink PTANOMS CI PTStart: 09-13-2024 End: 51-05-8826Raxmzf flowsheetSammantha Dumont PTNOMS CI PTStart: 09-13-2024 End: 57-20-3980Jhayrc flowsheetSammantha Dumont PTNOMS CI PTStart: 09-13-2024 End: 31-75-2153wcmrfjbimvQjjeukfte Schneider PTNOMS CI PTComment on above: Trochanteric bursitis of right hip (Primary Dx)Start: 08-31-2024 End: 89-77-4129Dsptspo encounter Espinoza Hoang MD Work Phone: Radiation OncologyComment on above:Malignant neoplasm of upper lobe of left lung (HCC) (Primary Dx)Start: 08-31-2024 End: 21-00-5371qefdduuynoMVNR RAJANFacility:[facility] Campustart: 46-38-2906Fgh-patient / Non-visitCarajesh JOHNSON[facility] Work Phone: Start: 08-16-2024 End: 34-19-4556Oonvgd outpatient visit 25 minutesLo Hancock MD Work [...] Other specified disorders of thyroidStart: 08-16-2024 End: 65-01-7141vaqfbywywuQAZPO ABHYANKARFacility:[facility] Campustart: 08-10-2024 End: 13-61-1547Liduuwgxp encounterGuillermina oRdriguez RN Work Phone: Hematology/OncologyComment on above:Care Coordination (MRI results)Start: 08-08-2024 End: 55-78-3167kfmubiverqOCMJO MUSSERNot AvailableStart: 08-07-2024 End: 88-64-9607Zcrtwlfel encounterNoemy Chicas RN Work Phone: Hematology/OncologyComment on above:Care Coordination (PET Results)DDD (degenerative disc disease), cervicalStart: 08-06-2024 End: 78-72-1048Zseomx outpatient visit 10 minutesBina Griffin DO Work Phone: [phone] [facility] FremontComment on above: Internal carotid artery stenosis, bilateral; Occlusive disease, arterial; Atheroembolism of bilateral lower extremities ([facility]-HCC)Start: 08-06-2024 End: 62-84-4382ghnugcinjsYXIN M [facility] PPGStart: 08-03-2024 End: 33-78-4474Czokrgnwl Result EncounterGeneric External Data ProviderNOMS External Department UnsolicitedStart: 08-03-2024 End: 74-31-9189Ogjxsylpi Result EncounterGeneric External Data ProviderNOMS External Department UnsolicitedStart: 65-93-1578irwvlzetvwFEGVC MARTINEZ [facility] HospitalStart: 08-03-2024 End: 18-66-7023Ubqjbnwmge hospital visit by physicianArrival Time Radiology Work Phone: Radiology Pet CTComment on above:Syncope and collapse [R55]Start: 07-31-2024 End: 36-81-6979Kmdhmjdeu department patient visitMARMercy Hospital St. John's HospitalStart: 07-31-2024 End: 46-65-0954Fovonierf encounterReshante Chicas RN Work Phone: Hematology/OncologyComment on above:Care Coordination (Headache & Fatigue)Start: 07-26-2024 End: 71-48-6115qugbgmeuswKUVZO A PETITTINot AvailableStart: 07-26-2024 End: 33-82-3474Krzlkz flowsCarlitos King NP Work Phone: [facility] FB ORTHOPAEDICSStart: 07-26-2024 End: 65-01-5539Ywfwap Ashley King NP Work Phone: [facility] FB ORTHOPAEDICSStart: 07-26-2024 End: 41-61-0737eohmefwjtdDJLVM T OLSENNot AvailableStart: 07-20-2024 End: 85-61-9754Vswbapjlph hospital visit by physicianArrival Time Radiology Work Phone: Radiology Pet CTComment on above:Syncope and collapse [R55]Start: 07-20-2024 End: 60-04-5695Yaaggebdc Result EncounterGeneric External Data ProviderNOMS External Department UnsolicitedStart: 07-20-2024 End: 67-40-8538Mnpbuttvw Result EncounterGeneric External Data ProviderNOMS External Department UnsolicitedStart: 07-20-2024 End: 14-75-4575Nyqrjegtg encounterHoljessica Mejia APRN.PADDING MACHINE OPERATOR Work Phone: Cancer Appts MCComment on above:Referral Information (Dermatology)Start: 07-20-2024 End: 07-05-2642Eexrzrq encounter procedureMichelle Mejia APRN.PADDING MACHINE OPERATOR Work Phone: Hematology/OncologyStart: 07-20-2024 End: 77-29-9098ajiurkfbigIvcup [address] Work Phone: Hematology/OncologyComment on above:Malignant neoplasm of upper lobe of left lung (HCC) (Primary Dx)Malignant neoplasm of upper lobe of left lung (HCC) (Primary Dx); Syncope and collapseStart: 07-11-2024 End: 39-04-7837Ujamqr Ludmila Miranda MD Work Phone: noms CWM FMComment on above:Chemotherapy-induced neuropathy (CMS/HCC)Start: 07-09-2024 End: 88-32-5590GiywwjChshjxv Sessler RN Work Phone: Hematology/OncologyComment on above:Refill Request (Ritalin)Start: 06-29-2024 End: 27-69-0459Qnekuslfo Result EncounterGeneric External Data ProviderNOMS External Department UnsolicitedStart: 06-29-2024 End: 48-20-8653Sgfvulvms Result EncounterGeneric External Data ProviderNOMS External Department UnsolicitedStart: 06-29-2024 End: 46-52-8639yzranguzrlBRLUD ABHYANKARFacility:[facility] Campustart: 06-26-2024 End: 22-32-2332LbuwqdTqua Naderer MD Work Phone: noms CW FMComment on above:DDD (degenerative disc disease), cervicalStart: 06-15-2024 End: 50-20-1796peeejrrdesNRFJ RAJANFacility:[facility] Campustart: 06-15-2024 End: 49-89-9986Bjneiwn encounter procedureSryan Hoang MD Work Phone: Radiation OncologyComment on above:Malignant neoplasm of upper lobe of left lung (HCC) (Primary Dx)Start: 06-15-2024 End: 86-41-0683Tzzmvyzzd Result EncounterGeneric External Data ProviderNOMS External Department UnsolicitedStart: 06-15-2024 End: 73-82-9455Dueqknqag Result EncounterGeneric External Data ProviderNOMS External Department UnsolicitedStart: 06-15-2024 End: 63-43-2336Dazfmom encounter procedureKimyron Scott APRN.CNP Work Phone: palliative MedicineComment on above:Palliative care by specialist (Primary Dx); Thymoma; Neuropathy due to chemotherapeutic drug (HCC); Anxiety; 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 condition; Malignant neoplasm of upper lobe of left lung (HCC); Cancer of trachea, bronchus, and lung (HCC); Nausea; Paraneoplastic neuropathy (HCC)Start: 06-15-2024 End: 65-86-4390tgmqiskuszFsvrw Malena Tolu Work Phone: Hematology/OncologyComment on above:Malignant neoplasm of upper lobe of left lung (HCC) (Primary Dx)Malignant neoplasm of lung, unspecified laterality, unspecified part of lung (HCC) (Primary Dx)Start: 06-13-2024 End: 31-85-8916dodtsqzbpjMgbojrzqgk Michaelis RD Work Phone: Nutrition TherapyStart: 06-13-2024 End: 71-58-9142Idjorzvvg therapyJacjeovany Goddard RD Work Phone: Nutrition TherapyComment on above:Nutrition Telephone Start: 06-05-2024 End: 54-02-6566LcqxpaAfrk Naderer MD Work Phone: NOUS CWM FMComment on above:KIKO (generalized anxiety disorder) (CMS/HCC)Start: 05-30-2024 End: 27-91-1549Wvgnntxju encounterSryan Hoang MD Work Phone: Radiation OncologyComment on above:Future Appointment Start: 05-18-2024 End: 58-35-9255Uiavyjiwc encounterShilpi Centeno RNHematology/OncologyComment on above:Referral RequestStart: 05-18-2024 End: 55-91-0900Frecus outpatient visit 25 minutesLo Hancock MD Work Phone: Hematology/OncologyComment on above:Malaise and fatigue; Attention deficit hyperactivity disorder (ADHD), combined typeStart: 05-18-2024 End: 30-86-8642ygnoazuflqQocmb [address] Work Phone: Hematology/OncologyComment on above:Malignant neoplasm of upper lobe of left lung (HCC) (Primary Dx)Start: 05-11-2024 End: 53-59-8239hbadnahczdWDXR RAJANFacility:[facility] Campustart: 05-11-2024 End: 03-32-0048Hupgety encounter Espinoza Hoang MD Work Phone: Radiation OncologyStart: 05-11-2024 End: 79-05-0958Qdlffipoo Oncology NoteSryan Hoang MD Work Phone: Radiation OncologyComment on above:Completion Note Start: 05-09-2024 End: 03-86-8368Evkzxsq encounter procedureMark Bong LMT Work Phone: Hematology/OncologyComment on above:Muscle soreness (Primary Dx)Start: 05-09-2024 End: 78-71-1153xghtfenpanIXKQQ ABHYANKARFacility:[facility] HospitalStart: 05-09-2024 End: 64-71-8521teaipbwmvwJJZY RAJANFacility:[facility] Campustart: 05-07-2024 End: 85-23-3456nirdvhpqzxFFHG RAJANFacility:[facility] Campustart: 05-04-2024 End: 16-76-3544xmxvvsfuttTIIO RAJANFacility:[facility] Campustart: 05-03-2024 End: 78-89-7403Swvecsb encounter procedureMihai Woody MELODIE Work Phone: Hematology/OncologyComment on above:Muscle soreness (Primary Dx)Start: 05-02-2024 End: 98-74-5694Ppatqahrj Result EncounterGeneric External Data ProviderNOMS External Department UnsolicitedStart: 05-02-2024 End: 48-80-1586Swwxluvyr Result EncounterGeneric External Data ProviderNOMS External Department UnsolicitedStart: 05-02-2024 End: 96-35-5030Ivikfpwro encounterSryan Hoang MD Work Phone: Radiation OncologyComment on above:Patient Update; AppointmentStart: 05-02-2024 End: 90-86-9562Wzaazlr encounter procedureSryan Hoang MD Work Phone: Radiation OncologyComment on above:Malignant neoplasm of upper lobe of left lung (HCC) (Primary Dx)Start: 05-02-2024 End: 06-88-4269gpgfjrzvchWZBYF ABHYANKARFacility:[facility] Campustart: 04-23-2024 End: 02-00-1787Vqnlio Ashley King NP Work Phone: noms FB ORTHOPAEDICSStart: 04-23-2024 End: 13-33-3021Jgfjuxsarah King NP Work Phone: noms FB ORTHOPAEDICSStart: 04-23-2024 End: 66-55-1477bowuduhfrzJDCSA T OLSENNot AvailableStart: 04-23-2024 End: 13-97-4587Yurjmy outpatient visit 25 minutesRobert King NP Work Phone: noms FB ORTHOPAEDICSComment on above:Impingement syndrome of right shoulder (Primary Dx); Acute pain of right shoulder; Acute pain of left shoulder; Impingement syndrome of left shoulderStart: 04-18-2024 End: 03-82-1954Lhjuieyasmine Miranda MD Work Phone: noms CWM FMStart: 04-18-2024 End: 53-68-6947Qvpfed flowsShamir Miranda MD Work Phone: noms CWM FMStart: 04-18-2024 End: 69-35-3623Ngbmscl encounter procedureDick Miranda MD Work Phone: [facility] Work Phone: Start: 04-18-2024 End: 75-38-3749Jxzjcd follow up visit related to original Lanie Miranda MD Work Phone: noms CW FMComment on above:Medicare annual wellness visit, subsequent (Primary Dx); Seborrheic dermatitis; 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); Chronic obstructive pulmonary disease, unspecified COPD type (CMS/HCC)Start: 04-18-2024 End: 93-11-4107gauziekafaBZXY NADERERNot AvailableStart: 04-15-2024 End: 75-60-2735UxmyryVvlfptSom Villasenor APRN-PADDING MACHINE OPERATOR Work Phone: [facility] Internal MedicineComment on above:Essential hypertension; Bilateral carotid artery stenosis; Occlusive disease, arterialStart: 04-11-2024 End: 77-17-8033Itgypii encounter procedureCcf ProviderOhio Valley Hospital DepartmentStart: 04-11-2024 End: 52-02-3949Uxdzyjlhe Oncology Jason Hoang MD Work Phone: Radiation OncologyComment on above:Simulation Note Treatment PlanningStart: 04-11-2024 End: 45-57-4548Wrgrjm outpatient visit 25 minutesLo Hancock MD Work Phone: Hematology/OncologyComment on above:Malignant neoplasm of upper lobe of left lung (HCC) (Primary Dx); Abnormal blood chemistry; Malaise and fatigueStart: 04-11-2024 End: 45-51-5764Coguus WorkLorsheyla VILLAWHematology/OncologyComment on above: Patient EducationMalignant neoplasm of upper lobe of left lung (HCC) (Primary Dx)Start: 04-09-2024 End: 84-82-0085Lhdfsy outpatient visit 25 minutesBina Griffin DO Work Phone: [facility] Vascular [place]ontComment on above: Bilateral carotid artery stenosis (Primary Dx); PAD (peripheral artery disease) ([facility]-HCC)Start: 04-09-2024 End: 63-06-5847iqgtjbyllxMCPV M [facility] PPGStart: 04-09-2024 End: 43-11-7346jyhuriqzzkLGGZJC G AFRIDIProMedica Dunnegan HospitalStart: 04-03-2024 End: 00-92-2490Eahpdgqsi Result EncounterGeneric External Data ProviderNOMS External Department UnsolicitedStart: 04-03-2024 End: 54-32-0233Quhkfopls Result EncounterGeneric External Data ProviderNOMS External Department UnsolicitedStart: 04-03-2024 End: 52-59-1413tyyhbautmrKHNZ RAJANFacility:[facility] Campustart: 04-03-2024 End: 34-76-1215Uydhvupleh hospital visit by physicianArrival Time Radiology Work Phone: Radiology Pet CTComment on above:Malignant neoplasm of unspecified part of unspecified bronchus or lung (HCC) [C34.90]Start: 04-02-2024 End: 04-68-4780OvlbeyCdzc Naderer MD Work Phone: NOKA CWM FMComment on above:DDD (degenerative disc disease), cervicalStart: 03-23-2024 End: 44-92-6898nwyvxujikzZWVVPYOZ J BUNDRIDGEFacility:[facility] Start: 03-23-2024 End: 29-56-2884Ufzoroe encounter procedureJoey Scott CANDLES POURER.PADDING MACHINE OPERATOR Work Phone: palliative MedicineComment on above:Palliative care by specialist (Primary Dx); Malignant neoplasm of upper lobe of left lung (HCC); Nausea; Anxiety; Cancer of trachea, bronchus, and lung (HCC); Paraneoplastic neuropathy (HCC); 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 conditionStart: 03-13-2024 End: 80-17-0915Htmwwjter encounterReshante Chicas RN Work Phone: Hematology/OncologyComment on above:Care Coordination (Treatment Decision)Start: 03-12-2024 End: 94-66-5110qqtokcoecfJSQF RAJANFacility:[facility] Campustart: 03-12-2024 End: 07-60-7782Qreqttd encounter procedureSryan Hoang MD Work Phone: Radiation OncologyComment on above:Malignant neoplasm of unspecified part of unspecified bronchus or lung (HCC) (Primary Dx); Malignant neoplasm of upper lobe of left lung (HCC)Start: 03-08-2024 End: 61-15-2854Ruagyi Ashley King NP Work Phone: noms FB ORTHOPAEDICSStart: 03-08-2024 End: 30-87-0368Hcpuqisarah King NP Work Phone: NOMB FB ORTHOPAEDICSStart: 03-08-2024 End: 66-85-0753ipedhjyqupMDSRJ T OLSENNot AvailableStart: 03-08-2024 End: 86-48-0379Plznwq outpatient visit 25 minutesRobert King NP Work Phone: noms FB ORTHOPAEDICSComment on above:Trochanteric bursitis of right hip (Primary Dx); Right hip painStart: 03-05-2024 End: 15-33-5728Oczxez outpatient new 45 minutesSophia Josh Moreira MD Work Phone: [facility] CardiologyComment on above: Essential hypertension (Primary Dx); Malignant neoplasm of upper lobe of left lung (CMS-HCC); Mixed hyperlipidemiaStart: 03-05-2024 End: 55-65-7460aetvyolmzwEDCKI L GISSELLESumma Health Wadsworth - Rittman Medical Centertart: 03-02-2024 End: 39-32-7157Lnjxhzazy encounterLisa Ariana [facility] Start: 68-62-1088Gzhsbbxqv for other preprocedural examinationCHANG XIAProMedica Dunnegan HospitalStart: 02-27-2024 End: 14-25-6661wjdqogpfddJYFL NADEREKindred Hospital Limatart: 02-27-2024 End: 70-00-7293kwntmtlaakJXTPBGO WUDEL [facility] Hospitaltart: 02-24-2024 End: 76-19-3717Zbgmjn outpatient visit 40 minutesLo Hancock MD Work Phone: Hematology/OncologyComment on above:Malignant neoplasm of lung, unspecified laterality, unspecified part of lung (HCC) (Primary Dx); Abnormal blood chemistryStart: 02-24-2024 End: 99-95-8512dgllzajcugTNYFA ABHYANKARFacility:[facility] Campustart: 02-24-2024 End: 07-72-2141Faltuhdra Result EncounterGeneric External Data ProviderNOMS External Department UnsolicitedStart: 02-24-2024 End: 03-67-2823Ojhrfpjrz Result EncounterGeneric External Data ProviderNOMS External Department UnsolicitedStart: 02-23-2024 End: 86-57-9300SmopurKporhbSom MCGOVERN Work Phone: [facility] Internal MedicineComment on above:Essential hypertension; Bilateral carotid artery stenosis; Occlusive disease, arterialStart: 02-20-2024 End: 80-51-5785ZfbytqWnlw Naderer MD Work Phone: NOYP CW FMComment on above:DDD (degenerative disc disease), cervicalCare Coordination (Fatigue; Body Aches)Start: 02-17-2024 End: 95-34-6457fngensdnajMQKIJNQ WUDEL [facility] Hospitaltart: 42-54-3774Rcnlqrjfm for preprocedural cardiovascular examinationCHANG TRINIDAD [facility] Centertart: 02-14-2024 End: 63-75-4659DdxokmEaston Oreilly MD Work Phone: Thoracic SurgeryComment on above:Preoperative testing (Primary Dx)Start: 02-14-2024 End: 06-59-9020Zkbkxlm encounter Girish Oreilly MD Work Phone: [facility] Centertart: 02-13-2024 End: 15-76-8660Lpgdwb outpatient visit 25 minutesSociera Moreira MD Work Phone: [facility] Vascular [place]ontComment on above: Occlusive disease, arterial (Primary Dx); Right internal carotid occlusion; Malignant neoplasm of upper lobe of left lung (CMS-HCC)Start: 02-13-2024 End: 44-70-5961qgcvhragoiHBQYUY G AFRIDKettering Health [facility] Ambulatory PPGStart: 02-08-2024 End: 58-90-3517Uagnpuu encounter procedureSavanah Oreilly MD Work Phone: Thoracic SurgeryComment on above:Encounter for preoperative vascular examination (Primary Dx); Malignant neoplasm of upper lobe of left lung (HCC); Preoperative cardiovascular examination; Preoperative testingStart: 02-08-2024 End: 69-80-7097Mvfrodg encounter Girish Oreilly MD Work Phone: [facility] Centertart: 02-08-2024 End: 47-75-1998Amlhxfxjzugd stateSavanah Oreilly MD Work Phone: [facility] Centertart: 02-08-2024 End: 87-19-4745midbexurbgLNPYNGP WUDELFacility:[facility] Campustart: 91-45-1165Cfqlrfsjm for other preprocedural examinationLEONARD [facility] HospitalStart: 81-63-8909Asmpikziy for preprocedural cardiovascular examinationLEONARD [facility] Luther[facility] HospitalStperryville: 01-26-2024 End: 46-90-0833Ycbpbjcre encounterNoemy Chicas RN Work Phone: Hematology/OncologyComment on above:Care Coordination (CT Results)Start: 01-25-2024 End: 35-46-8424Rftzzclfc Result EncounterGeneric External Data ProviderNOMS External Department UnsolicitedStart: 01-25-2024 End: 69-78-7564Sheuilaex Result EncounterGeneric External Data ProviderNOMS External Department UnsolicitedStart: 01-25-2024 End: 79-04-0610zujwtabbamLYLIM ABHYANKARFacility:[facility] Campustart: 01-25-2024 End: 47-22-5259Wltnnrkrnq hospital visit by physicianArrival Time Radiology Work Phone: Radiology Pet CTComment on above:Malignant neoplasm of lung, unspecified laterality, unspecified part of lung (HCC) [C34.90]Start: 01-18-2024 End: 29-76-8884Ibwfejvug encounterReshante Chicas RN Work Phone: Hematology/OncologyComment on above:Care Coordination (Question)Start: 01-17-2024 End: 48-72-1979Jjgunmsarah Miranda MD Work Phone: noms CWM FMStart: 01-17-2024 End: 50-18-0223Tlyrytyasmine Miranda MD Work Phone: noms CWM FMStart: 01-17-2024 End: 35-29-0587ykfenmdwkxRPNR NADERERNot AvailableStart: 01-17-2024 End: 13-06-5331Yhbwbv outpatient visit 25 minutesDick Miranda MD Work Phone: noms CWM FMComment on above:Essential hypertension (CMS/HCC) (Primary Dx); Chemotherapy-induced neuropathy (CMS/HCC); Chronic obstructive pulmonary disease, unspecified COPD type (CMS/HCC); Encounter for long-term (current) use of medications; PAD (peripheral artery disease) (CMS/HCC); DDD (degenerative disc disease), cervical; Hypothyroidism, postradioiodine therapy (CMS/HCC)Start: 01-03-2024 End: 23-22-5930Quobvp Beba Holland DO Work Phone: noms CI ORTHOPAEDICSStart: 01-03-2024 End: 45-40-9096Uetkgrsarah Holland DO Work Phone: noms CI ORTHOPAEDICSStart: 01-03-2024 End: 14-24-2497Touedfvlb encounterNoemy Chicas RN Work Phone: Hematology/OncologyComment on above:Care Coordination (Medication Question)Care Coordination (Letter Request)Start: 01-03-2024 End: 16-35-0766Wtjejy outpatient visit 10 minutesErin Holland DO Work Phone: noms CI ORTHOPAEDICSComment on above:Right hip pain (Primary Dx); Trochanteric bursitis of right hip; Tear of right gluteus minimus tendon, subsequent encounterStart: 01-03-2024 End: 76-19-6951fmevhqkwzoROEMLToan Mccoy AvailableStart: 12-29-2023 End: 37-00-5146Zxrntr Aleisha Miranda MD Work Phone: noms CWM FMStart: 12-29-2023 End: 64-42-3471Kwldfm Aleisha Miranda MD Work Phone: noms CWM FMStart: 12-29-2023 End: 89-40-6134Bvilialyj encounterNoemy Chicas RN Work Phone: Hematology/OncologyComment on above:Care Coordination (Medication & Vaccine Question)Start: 12-29-2023 End: 58-03-3871Fbsjxp outpatient visit 25 minutesDick Miranda MD Work Phone: noms CWM FMComment on above: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) (Primary Dx); PAD (peripheral artery disease) (CMS/HCC); Chemotherapy-induced neuropathy (CMS/HCC); Primary insomniaStart: 12-29-2023 End: 94-81-0061dgymnyklixZNPS NADERERNot AvailableStart: 12-28-2023 End: 86-46-4003Cajppptcv Result EncounterGeneric External Data ProviderNOMS External Department UnsolicitedStart: 12-28-2023 End: 36-66-6375Pbdbwauxh Result EncounterGeneric External Data ProviderNOMS External Department UnsolicitedStart: 12-28-2023 End: 98-86-4832Zzrtdr outpatient visit 40 minutesLo Hancock MD Work Phone: Hematology/OncologyComment on above:Malignant neoplasm of upper lobe of left lung (HCC) (Primary Dx); Malaise and fatigue; Attention deficit hyperactivity disorder (ADHD), combined type; Malignant neoplasm of lung, unspecified laterality, unspecified part of lung (HCC)Start: 12-28-2023 End: 17-97-9008fgpszdmyspJchaw 3 Tolu Work Phone: Hematology/OncologyComment on above:Malignant neoplasm of upper lobe of left lung (HCC) (Primary Dx)Prescription RefillsStart: 12-26-2023 End: 18-87-3992kgcxhfnxijTfvmpeysp L Mitchell RNMobile ServicesComment on above: Palliative Medicine Introduction and Contact NumbersStart: 12-26-2023 End: 27-76-8511B-mail encounter from Tyrone Castillo ServicesStart: 12-23-2023 End: 94-61-5812Pvbyywarf encounterReshante Chicas RN Work Phone: Hematology/OncologyComment on above:Care Coordination (Numbness/Tingling; Lab Request)Start: 12-23-2023 End: 66-87-1589brfpowghwpBUUHCBRF J BUNDRIDGEFacility:[facility] Start: 12-23-2023 End: 42-64-8296Yttenrz encounter procedureJoey Scott CANDLES POURER.PADDING MACHINE OPERATOR Work Phone: palliative MedicineComment on above:Palliative care by specialist (Primary Dx); Cancer of trachea, bronchus, and lung (HCC); Malignant neoplasm of upper lobe of left lung (HCC); Paraneoplastic neuropathy (HCC); Nausea; 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 condition; AnxietyStart: 12-19-2023 End: 54-38-5545WrkmtrRimm Naderer MD Work Phone: noms CWM FMComment on above:DDD (degenerative disc disease), cervicalStart: 12-07-2023 End: 91-83-3559Apgcbrsbs Result EncounterGeneric External Data ProviderNOMS External Department UnsolicitedStart: 12-07-2023 End: 43-45-8132Kwxzirpmq Result EncounterGeneric External Data ProviderNOMS External Department UnsolicitedStart: 12-07-2023 End: 48-67-3084keabchbxcuHekss 3 Tolu Work Phone: Hematology/OncologyComment on above:Malignant neoplasm of upper lobe of left lung (HCC) (Primary Dx)Start: 12-07-2023 End: 99-51-2102Oehnhw outpatient visit 25 minutesoL Hancock MD Work Phone: Hematology/OncologyComment on above:Malignant neoplasm of upper lobe of left lung (HCC) (Primary Dx); ImmunotherapyStart: 11-29-2023 End: 29-68-4884Pitxdkffy encounterNoemy Chicas RN Work Phone: Hematology/OncologyComment on above:Care Coordination (Treatment Side Effects)Care Coordination (Dental Question)Start: 11-24-2023 End: 09-15-1641Pdtcivisk Result EncounterGeneric External Data ProviderNOMS External Department UnsolicitedStart: 11-24-2023 End: 26-28-2435Uighuzhai Result EncounterGeneric External Data ProviderNOMS External Department UnsolicitedStart: 11-24-2023 End: 15-68-5393zxqiyzhbnsOkl/[place] Tolu Work Phone: Hematology/OncologyComment on above:Malignant neoplasm of upper lobe of left lung (HCC) (Primary Dx)Start: 11-21-2023 End: 08-89-1919Qxknsmdxz encounterNoemy Chicas RN Work Phone: Hematology/OncologyComment on above:Care Coordination (C1D1 Post Treatment Call)Start: 11-18-2023 End: 37-93-8335ArnszmJqes Naderer MD Work Phone: noms CWM FMComment on above:DDD (degenerative disc disease), cervicalStart: 11-16-2023 End: 21-56-6383Kaaoydfls Result EncounterGeneric External Data ProviderNOMS External Department UnsolicitedStart: 11-16-2023 End: 85-37-7211Lgocabvyo Result EncounterGeneric External Data ProviderNOMS External Department UnsolicitedStart: 11-16-2023 End: 75-23-0532Mvwkfznzs encounterFinancial Navigator John Paul Work Phone: Hematology/OncologyComment on above:Benefits InvestigationStart: 11-16-2023 End: 91-21-8297pxynhinjmnGugyt 3 Tolu Work Phone: Hematology/OncologyComment on above:Malignant neoplasm of upper lobe of left lung (HCC) (Primary Dx)Start: 11-16-2023 End: 02-73-5932Ooesck outpatient visit 25 minutesLo Hancock MD Work Phone: Hematology/OncologyComment on above:Malignant neoplasm of upper lobe of left lung (HCC) (Primary Dx)Start: 11-15-2023 End: 60-95-2474wazsgqmkadVidvuwj Sessler RN Work Phone: Hematology/OncologyComment on above:First Time Treatment Education (Nivolumab, Paclitaxel, & Carboplatin)Start: 11-15-2023 End: 80-82-7015Bsrdvnvit encounterNoemy Chicas RN Work Phone: Hematology/OncologyComment on above:Care Coordination (Nutrition Referral)Lab OrdersStart: 11-14-2023 End: 75-07-6258Zewgwaygn encounterNoemy Chicas RN Work Phone: Hematology/OncologyComment on above:Care Coordination (Antiemetics)Start: 11-11-2023 End: 91-49-4803Fulyokppv encounterNoemy Chicas RN Work Phone: Hematology/OncologyComment on above:Care Coordination (Treatment Planning)Start: 11-09-2023 End: 23-58-1173Pafgywi encounter Antonio Oreilly MD Work Phone: Thoracic SurgeryComment on above:Malignant neoplasm of upper lobe of left lung (HCC) (Primary Dx)Start: 11-03-2023 End: 85-24-9645lemjhkxlucVUFUD N [facility] HospitalStart: 11-01-2023 End: 12-70-4004Ripvortwb encounterHugh Craig MD Work Phone: Pulmonary MedicineStart: 11-01-2023 End: 74-45-1832govvwrmrghRpc Rezakhani Research CoordinatorPulmonary Medicine Comment on above:Informed ConsentStart: 10-28-2023 End: 70-42-7932jjndgxqqahQcldjews K Heugel RNPulmonologyComment on above:another medication to holdStart: 10-28-2023 End: 73-83-4151Y-mail encounter from caregiverGardner Sanitariumroel Mcfadden [facility] Start: 10-28-2023 End: 09-42-6921Shihkskcl to same day surgery centerFrsanti Elizondo APRN.PADDING MACHINE OPERATOR Work Phone: [facility] FHCComment on above: Lung mass (Primary Dx); Chronic obstructive pulmonary disease, unspecified COPD type (HCC); Chest pain, unspecified type; Hypertension, unspecified type; Hx of neck surgery; TIA (transient ischemic attack); Other chronic pain; Former smoker; PAD (peripheral artery disease) (HCC)Start: 10-28-2023 End: 60-17-4351Gqpnjxflahzv consultation with patientFrsanti Elizondo APRN.PADDING MACHINE OPERATOR Work Phone: [facility] Hospitaltart: 10-27-2023 End: 66-37-3783FbkrkeToxb Naderer MD Work Phone: noms CWM FMComment on above:DDD (degenerative disc disease), cervical (Primary Dx); Primary insomniaStart: 10-26-2023 End: 24-70-9358Arnfehdvqgnxy examination donePacc [place] Work Phone: [facility] Work Phone: Start: 10-26-2023 End: 87-58-5877AYZDxdp [place] Work Phone: Pre AnesthesiaComment on above:Pre-op evaluation (Primary Dx); Chronic obstructive pulmonary disease, unspecified COPD type (HCC); Cigarette smoker; Hypothyroidism, postradioiodine therapy; TIA (transient ischemic attack); KIKO (generalized anxiety disorder); Essential hypertension; Mixed hyperlipidemia; PAD (peripheral artery disease) (HCC); Chronic pain syndrome; Prediabetes; History of craniotomyIncreased SOB following Spiriva useStart: 10-25-2023 End: 67-60-2071mxhdackipnPpdhswxc K Heugel RNPulmonologyComment on above:hold medications until after procedureStart: 10-25-2023 End: 09-74-1601Olgrvnvmogzjc procedureLenora Aguiar [facility] - Medical OncologyStart: 10-25-2023 End: 89-99-9031X-mail encounter from caregiverTommie Mcfadden RNPulmonology Start: 10-25-2023 End: 70-73-2721Ukydzpz evaluation of patient and reportMa Nurse John Paul Marte Work Phone: Hematology/OncologyComment on above:Pre-op exam (Primary Dx); Lung noduleStart: 10-25-2023 End: 93-09-6585Htjxnvgwuoeat examination doneMa Nurse John Paul Marte Work Phone: [facility] Centertart: 10-24-2023 End: 14-05-8309kgowektradOosnea C Cicenia MD Work Phone: PulmonologyComment on above:Bronchoscopy Scheduling Start: 10-24-2023 End: 45-24-5928Nxlgezgcj encounterLo Hancock MD Work Phone: Cancer Appts MCComment on above:AppointmentQuestion Start: 10-22-2023 End: 53-48-1833XzvejwZuxjfpSom Villasenor APRN-PADDING MACHINE OPERATOR Work Phone: [facility] Internal MedicineComment on above:Essential hypertension (Primary Dx); Bilateral carotid artery stenosis; Occlusive disease, arterialStart: 10-21-2023 End: 75-54-1675Mxojzb outpatient new 60 Carey Hancock MD Work Phone: Hematology/OncologyComment on above:Malignant neoplasm of upper lobe of left lung (HCC) (Primary Dx)Start: 10-21-2023 End: 51-72-2269rcbvembocqAJBKQ N [facility] HospitalStart: 10-20-2023 Chart abstractTye Hancock MD Work Phone: Hematology/OncologyStart: 10-20-2023 End: 44-24-2449Zpexuq outpatient new 60 minutesRossanaflorentin Lang Work Phone: [facility] Pulmonary/Sleep MedicineComment on above:Chronic obstructive pulmonary disease, unspecified COPD type ([facility]-H[facility]) (Primary Dx); Lung massStart: 10-20-2023 End: 63-90-6726vosptuugnvHNWYITHillcrest Medical Center [facility] PPGStart: 10-17-2023 End: 20-43-4106prcyzrfnlzAGEIC N [facility] HospitalStart: 10-13-2023 End: 57-00-3701Mdifli outpatient new 60 minutesSandyng Amada Abdi MD Work Phone: [facility] - Medical OncologyComment on above:Squamous carcinoma of lung, left ([facility]-HCC) (Primary Dx); Lung massStart: 10-13-2023 End: 62-98-8103qeoewywcekPTOCG N [facility] HospitalStart: 10-05-2023 End: 82-31-0382yowzbljcxhSQQHTHD ROSTBrecksville [facility] HospitalStart: 10-05-2023 End: 56-01-8494rugvjbruqwXOOHEW A MULLINSPMercy Health Allen Hospital HospitalStart: 10-03-2023 End: 10-63-9008Ipepsn outpatient visit 40 minutesOlegario Moreira MD Work Phone: [facility] Vascular [place]remontComment on above: Occlusive disease, arterial (Primary Dx); Right internal carotid occlusion; Bilateral carotid artery stenosis; Atheroembolism of bilateral lower extremities (CMS-HCC)Start: 10-03-2023 End: 27-61-9003hmlokcpfafMVQDAE G AFRIDKettering Health [facility] PPGStart: 06-27-2023 End: 09-47-6629Dulgrf outpatient visit 25 minutesOlegario Moreira MD Work Phone: [facility] Jobst VascularComment on above: Right internal carotid occlusion (Primary Dx); Occlusive disease, arterialStart: 04-20-2023 End: 42-40-0834Cfelhp outpatient new 45 minutesDick Miranda MD Work Phone: [facility] CWM FMComment on above:Essential hypertension ([facility]) (Primary Dx); Degenerative lumbar spinal stenosis; DDD (degenerative disc disease), cervical; Benign prostatic hyperplasia with urinary hesitancy; PAD (peripheral artery disease) ([facility]); Hypothyroidism, postradioiodine therapy ([facility])Start: 03-14-2020 End: 32-72-4436Zijzvyb encounter procedureJojackie [facility] CampusStart: 01-24-2020 End: 61-59-5711Rzihiig encounter procedureJOSHIELANESSA GARYFacility:J8Lleqw: 10-12-2019 End: 88-48-8488Xtrpcdk encounter procedureJOBINDU SOMPLEFacility:C7Uvqag: 47-66-6501Vicbjae encounter procedureAajd [facility] HealthcareFacility:[facility] Start: 50-18-1800Jtguxxw encounter procedureMaroun Patti SemaanFacility:[id number] Procedures DateProcedureProcedure DetailPerforming ClinicianStart: 30-99-4434Hbhvedhs total Dick Miranda MD Work Phone: Comment on above:Provided reference range is from 6-10 AM sample collection time.Cortisol Reference Range: 6-10 AM =4.8-19.5 ug/dL, 4- 8 PM = 2.5-11.9 ug/dLStart: 48-78-5222Lcbkvuak Brooks Miranda MD Work Phone: Comment on above:Provided reference range is from 6-10 AM sample collection time.Cortisol Reference Range: 6-10 AM =4.8-19.5 ug/dL, 4- 8 PM = 2.5-11.9 ug/dLStart: 22-10-2921Zpp imaging ct attenuation skull base mid-thighLo Hancock MD Work Phone: Start: 11-09-2024 End: 74-65-9163Ddvjj count complete auto&auto difrntl wbcLo Hancock MD Work Phone: Comment on above:Provided reference range is from 6-10 AM sample collection time.Cortisol Reference Range: 6-10 AM =4.8-19.5 ug/dL, 4- 8 PM = 2.5-11.9 ug/dLStart: 82-91-8360AV angiography of thoraxBasia Vega MD Work Phone: Start: 14-19-0640Vyelvvakhlp Panel (PCR)Basia Vega MD Work Phone: Start: 65-12-0098Clnuwzecte exam chest 2 viewsMichelle Mejia APRN.CNP Work Phone: Start: 32-59-0154DB CHEST 2V FRONTAL/LATGeneric External Data ProviderStart: 20-74-1740Bjllzk-up visitFollow-upCHUKWUEMEKE O NKADIStart: 90-95-3684FAF CBC W AUTO DIFF BLDGeneric External Data Provider Start: 08-77-7811OK PET/CT SKULL-THIGH SUBQGeneric External Data ProviderStart: 22-04-2032Lvw imaging ct attenuation skull base mid-thighMichelle Mejia APRN.CNP Work Phone: Start: 62-50-1383NFL CBC W AUTO DIFF BLDGeneric External Data ProviderStart: 08-03-2024 End: 09-83-1630Apevdtbbewtjoazsdwt hormone acthMinvinny King PA-C Work Phone: Start: 60-27-7523RN BRAIN WO/W IVCONGeneric External Data ProviderStart: 38-24-9095Oc head/brain w/o & w/contrast materialMichelle Mejia APRN.PADDING MACHINE OPERATOR Work Phone: Start: 64-14-5668JNP CBC W AUTO DIFF BLDGeneric External Data ProviderStart: 35-59-8011DYL CBC W AUTO DIFF BLDGeneric External Data ProviderStart: 70-88-6054IVW CBC W AUTO DIFF BLDGeneric External Data ProviderStart: 19-86-8417WCX CBC W AUTO DIFF BLDGeneric External Data Provider Start: 06-30-9207Vvlwrkadktmjae aspir&/inj major jt/bursa w/o usGrant T Luiza DESK SERGEANT Work Phone: Start: 20-27-5807Jfavbmdoinhcon aspir&/inj major jt/bursa w/o usGrant T Luiza DESK SERGEANT Work Phone: Start: 28-28-5812NS PET/CT SKULL-THIGH SUBQGeneric External Data ProviderStart: 57-65-5997Efk imaging ct attenuation skull base mid-thighJack Hoang MD Work Phone: Start: 91-37-0694PYR CBC W AUTO DIFF BLDGeneric External Data ProviderStart: 04-03-2024 End: 24-92-7217Svgji count complete auto&auto difrntl wbcViveteagan Hancock MD Work Phone: Start: 67-82-3883Oyxonlardeyiud aspir&/inj major jt/bursa w/o usGrant T Luiza DESK SERGEANT Work Phone: Start: 70-31-4806BGS CBC W AUTO DIFF BLDGeneric External Data ProviderStart: 60-51-6641Xf abdomen & pelvis w/contrast material Lo Hancock MD Work Phone: Start: 20-06-6664Ca thorax w/contrast materialLo Hancock MD Work Phone: Start: 81-00-8370IWW CBC W AUTO DIFF BLDGeneric External Data ProviderStart: 95-05-8230Lcqhp count complete auto&auto difrntl wbcViveteagan Hancock MD Work Phone: Start: 54-96-5337Koofy metabolic panel calcium total Dick Miranda MD Work Phone: Start: 85-16-8122Vmopu metabolic panel calcium total Dick Miranda MD Work Phone: Start: 25-43-4666SVE CBC W AUTO DIFF BLDGeneric External Data ProviderStart: 64-75-7475LRB CBC W AUTO DIFF BLDGeneric External Data ProviderStart: 84-79-3999TXR CBC W AUTO DIFF BLDGeneric External Data ProviderStart: 78-36-0544AYR CBC W AUTO DIFF BLDGeneric External Data Provider Start: 42-38-2204Ugi routine ecg w/least 12 lds i&r onlyCcf ProviderStart: 93-14-5387Wpdjyy-up visitFollow-upSOPHIA G AFRIDIStart: 07-34-6879Vyybr 1996 panel - Serum or PlasmaLo Hancock MD Work Phone: Start: 77-79-6121H-ray of lumbar spine, four views Basia Duartetart: 91-85-7532Xpkwsm-up visitStart: 04-56-1522Dzjimak of tympanostomyMyringotomy tube statusDick Miranda MD Work Phone: Start: 26-54-0642TyjihevgpstElba Naderer MD Work Phone: H/O: surgeryHx of neck surgeryFrsanti Elizondo APRN.PADDING MACHINE OPERATOR Work Phone: History of tympanostomyMyringotomy tube statusBasia Vega MD Work Phone: Plan of Treatment DateCare ActivityDetailAuthorStart: 26-35-6082Eepkg panelLipid Screening [facility] Centertart: 07-35-7036Ufcvvjal specific antigen measurementProstate Cancer Screening DiscussionCleCleveland Clinic Children's Hospital for Rehabilitationtart: 32-08-4064Sfsruegi Screening Diabetes ScreeningSumma Health Wadsworth - Rittman Medical Centertart: 91-52-1034Jxjgbuqx ScreeningDiabetes ScreeningCleCleveland Clinic Children's Hospital for Rehabilitationtart: 56-20-3886Pehstpil ScreeningDiabetes Screening [facility] Centertart: 52-97-2611Sxztweka ScreeningDiabetes ScreeningSumma Health Wadsworth - Rittman Medical Centertart: 35-78-8076Tdjajqzm ScreeningDiabetes ScreeningOhio Valley Hospital Start: 70-36-7875Noutxahm ScreeningDiabetes ScreeningSumma Health Wadsworth - [facility]itt[facility] Medical Centertart: 86-35-8983Twvkjefm ScreeningDiabetes ScreeningSumma Health Wadsworth - [facility]itt[facility] Medical Centertart: 05-02-2027 Diabetes ScreeningDiabetes ScreeningSumma Health Wadsworth - [facility]itt[facility] Medical Centertart: 95-88-9252Lbbbqnwm ScreeningDiabetes ScreeningSumma Health Wadsworth - [facility]itt[facility] Medical Centertart: 87-41-7686Ppzhcwdu Screening Diabetes ScreeningSumma Health Wadsworth - [facility]itt[facility] Medical Centertart: 80-46-9607Fozqhecq ScreeningDiabetes ScreeningSumma Health Wadsworth - [facility] Medical Centertart: 77-39-9090Fwcysoew ScreeningDiabetes Screening [facility] Centertart: 01-40-5207Psdzepau ScreeningDiabetes ScreeningSumma Health Wadsworth - [facility]itt[facility] Medical Centertart: 39-48-0153Pnfvsnyg ScreeningDiabetes ScreeningOhio Valley Hospital Start: 83-48-2294Ezyctlmm ScreeningDiabetes ScreeningSumma Health Wadsworth - Ritt[facility] Medical Centertart: 49-01-7541Ybmmfmvt ScreeningDiabetes ScreeningSumma Health Wadsworth - [facility]itt[facility] Medical Centertart: 10-02-2025 Screening for malignant neoplasm of colonNOUT HealthcareStart: 64-79-2817Apjqi BMI ScreeningAdult BMI ScreeningNovant Health Huntersville Medical Centertart: 05-40-1699Vhyabva ScreeningTobacco ScreeningNovant Health Huntersville Medical Centertart: 27-93-6528Kjysldj ScreeningTobacco ScreeningMemorial Hospital SystemStart: 20-93-7124Eoear BMI ScreeningAdult BMI ScreeningNovant Health Huntersville Medical Centertart: 07-25-2025 End: 71-46-1913Fcecrdg encounter procedureNOMS SWS DERMStart: 43-17-7741DC Controlled (<130/80)BP Controlled (<130/80)[facility] Centertart: 59-58-0472CE Controlled (<130/80)BP Controlled (<130/80)[facility] Centertart: 04-23-2025 End: 58-34-9396Nqbjsap encounter ztgwrwjhy91/17/2026 10:00 AM EST Office Visit [facility] [address] [place] [address] Dick Miranda MD [address] [place] [address] [facility] FMStart: 02-12-2026Medicare Annual Wellness (AWV)Medicare Annual Wellness (AWV)NOM HealthcareStart: 36-59-6847Hihat BMI ScreeningAdult BMI ScreeningMemorial Hospital SystemStart: 78-43-2960Dqqmysy ScreeningTobacco ScreeningMemorial Hospital SystemStart: 25-68-5514Ypvwa BMI ScreeningAdult BMI ScreeningMemorial Hospital SystemStart: 38-15-7205Dlvxqmp ScreeningTobacco ScreeningMemorial Hospital SystemStart: 46-67-1303Iftod BMI ScreeningAdult BMI ScreeningMemorial Hospital SystemStart: 53-68-6556Bgjfxnd ScreeningTobacco ScreeningMemorial Hospital SystemStart: 53-69-2524JW Controlled (<130/80)BP Controlled (<130/80)[facility] Centertart: 02-11-2025 End: 87-29-6277Sskbzzu encounter khpwzofhi84/08/2025 9:30 AM EST Office Visit [facility] [address] [address] Bina Griffin, DO [address] [place] [address] [facility] Hospitaltart: 02-07-2025 End: 27-32-1348Yxraiko encounter pawszebmq40/04/2025 8:30 AM EST Appointment [facility] - [facility]ascular [address] [place] [address] Bina Griffin, DO [address] [place] [address] [facility] - VascularStart: 02-06-2025 End: 71-59-5451EZ.doppler Extremity arteries - bilateral for physiologic artery studyVas art doppler lwr bilat mult lev/PVR Vascular Ultrasound Routine Occlusive disease, 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) Expected: 02/06/2025 (Approximate), Expires: 08/06/2025[facility] Work Phone: [phone] on above:Expected: 02/06/2025 (Approximate), Expires: 08/06/2025Start: 65-08-4178Wpknfdmmxw A1c measurementDiabetes: Hemoglobin Y1FMRRH HealthcareStart: 22-14-9582VP Controlled (<130/80)BP Controlled (<130/80)[facility] Centertart: 11-23-2024 End: 84-63-2022Biuamp-up dynraughc53/19/2025 1:30 PM EDT Visit (SP) Office Hematology/Oncology [address] [place], [place] [phone] Preston Hernández APRN.PADDING MACHINE OPERATOR [address] [place] [address] 2 week follow up to recheck symptomsHematology/Oncology Comment on above:2 week follow up to recheck symptomsStart: 95-26-6828Yqpqkagdgi A1c measurementDiabetes: Hemoglobin N0NHYKW HealthcareStart: 11-16-2024 End: 76-77-9119Vbjxvod encounter vgilhofgk45/12/2025 11:00 AM EDT Office Visit Radiation Oncology [address] [address] Jack Hoang MD [address] [place] [address] follow upRadiation OncologyComment on above:follow upStart: 76-62-4741YL Controlled (<130/80)BP Controlled (<130/80)[facility] Centertart: 11-15-2024 Hemoglobin A1c measurementDiabetes: Hemoglobin K8MYRIF HealthcareStart: 11-09-2024 End: 77-73-0545Vgyrqd-up encounterHematology/OncologyComment on above:follow up after PET scan same dayStart: 11-09-2024 End: 61-94-3092Tcaltgy encounter bjusbmsrc58/05/2025 10:00 AM EDT Appointment Radiology Pet CT [address] [place] [address] PET Radiology Pet CTComment on above:PETStart: 11-08-2024 End: 23-13-1321VLU W Auto Differential panel - BloodCOMPLETE BLOOD COUNT AND DIFFERENTIAL Lab Routine Malignant neoplasm of unspecified part of unspecified bronchus or lung (HCC) Expected: 11/08/2024 (Approximate), Expires: 02/07/2025 [facility] HospitalComment on above:Expected: 11/08/2024 (Approximate), Expires: 02/07/2025Start: 11-08-2024 End: 82-81-0004Grsmqkoeucpxt metabolic 2000 panel - Serum or PlasmaCOMPREHENSIVE METABOLIC PANEL Lab Routine Malignant neoplasm of unspecified part of unspecified bronchus or lung (HCC) Expected: 11/08/2024 (Approximate), Expires: 02/07/2025leveland ClinicComment on above:Expected: 11/08/2024 (Approximate), Expires: 02/07/2025Start: 11-08-2024 End: 04-26-2660Voifflev [Mass/volume] in Serum or PlasmaCORTISOL, SERUM Lab Routine Malignant neoplasm of unspecified part of unspecified bronchus or lung ( HCC) Immunotherapy Malaise and fatigue Abnormal blood chemistry Expected: 11/08/2024 (Approximate),Expires: 02/07/2025leveland ClinicComment on above: Expected: 11/08/2024 (Approximate), Expires: 02/07/2025Start: 11-08-2024 End: 54-77-9039Bymzgkymrs A1c in BloodHEMOGLOBIN A1C Lab Routine Malignant neoplasm of unspecified part of unspecified bronchus or lung (HCC) Immunotherapy Abnormal blood chemistry Expected: 11/08/2024 (Approximate), Expires: 02/07/2025leveland ClinicComment on above:Expected: 11/08/2024 (Approximate), Expires: 02/07/2025Start: 11-08-2024 End: 39-83-6790GOT+CT Guidance for localization of tumor of Skull base to mid-thigh-- W 18F-FDG IVNM PET/CT SKULL-THIGH SUBSEQUENT Radiology Routine Malignant neoplasm of unspecified part of unspecified bronchus or lung (HCC) Expected: 11/08/2024 (Approximate), Expires: 09/15/2025[facility] Work Phone: Comment on above:Expected: 11/08/2024 (Approximate), Expires: 09/15/2025Start: 11-08-2024 End: 50-19-8929Tocqfpcvgbm [Units/volume] in Serum or PlasmaTHYROID STIMULATING HORMONE Lab Routine Malignant neoplasm of unspecified part of unspecified bronch us or lung (HCC) Immunotherapy Malaise and fatigue Expected: 11/08/2024 (Approximate), Expires: 02/07/2025[facility] HospitalComment on above:Expected: 11/08/2024 (Approximate), Expires: 02/07/2025Start: 33-49-7539BgqbnobnkBon Secours St. Francis Medical CenterStart: 64-13-4381UcyossfybUniversity Hospitals Portage [facility] Start: 65-10-8060MjtxsgelevtlSijxcevkfKettering Health Daytontart: 10-27-2024 Hospital admissionKettering Health Daytontart: 23-20-2492TjjkevumxKettering Health Daytontart: 10-26-2024 End: 02-80-1016Bqubnwk encounter ghqxbibxe21/22/2025 8:00 AM EDT Appointment Radiology [address] [place] [address] [place] [address] CHEST XRAY RadiologyComment on above:CHEST XRAYStart: 10-24-2024 End: 49-28-8315kekjtmrzhl04/20/2025 1:30 PM EDT Treatment [facility] [address] [place], [id number] Anmol Parker PTANOMS Clyde Physical TherapyStart: 38-68-3962Cmdgb BMI Screening Adult BMI ScreeningMemorial Hospital SystemStart: 04-46-6260Zdfhwxh Screening Tobacco ScreeningProTriHealth Bethesda Butler Hospitaltart: 10-17-2024 End: 65-19-2178fdcrbrywgv42/13/2025 1:30 PM EDT Treatment [facility] [address] [id number] Nilda Mayes PTANOMS [facility] Physical TherapyStart: 10-17-2024 End: 26-99-4177Urzyaeu encounter bdlwmoeqp44/13/2025 10:00 AM EDT Office Visit [facility] [address] [place] [address] Dick Miranda MD [address] [place] [address] [facility] CWM FMStart: 66-13-2353Tttwi BMI ScreeningAdult BMI ScreeningProTrihealthca Health SystemStart: 01-17-4903Znnxtdg ScreeningTobacco ScreeningProMedica Health SystemStart: 81-36-2926Nullgsy ScreeningTobacco ScreeningProMedica Health SystemStart: 37-28-2247Bhcyjlyxsw A1c measurementDiabetes: Hemoglobin E3DDSFH HealthcareStart: 10-01-2024 End: 78-22-8380qpeloabucl56/28/2025 1:00 PM EDT Treatment [facility] [address] [place] [address] Arnulfo Wang PTANOMS CI PTStart: 28-17-9224Vhgks BMI ScreeningAdult BMI ScreeningProTrihealthca Health SystemStart: 09-27-2024 End: 61-75-3483yttmozgxva85/24/2025 1:00 PM EDT Treatment [facility] [address] [place] [address] Arnulfo Wang PTANOMS CI PTStart: 09-83-6211Qxkkjiyyrk A1c measurementDiabetes: Hemoglobin A1C [facility] HealthcareStart: 09-26-2024 End: 72-23-3845Umyyufu encounter onprncbaw89/23/2025 1:45 PM EDT Office Visit [facility] [address] [place] [address] Gary Owen MD [address] [place] [facility] [place] [address] Neha Garcia MD [address] [place] [address] [facility] CardiologyStart: 09-25-2024 End: 07-92-7695Hfjmaom encounter bafwhmbuw89/22/2025 2:35 PM EDT Office Visit [facility] [address] [place] [address] Susan Claudio MD [address] [place] [address] [facility] SWS DERMStart: 09-24-2024 End: 35-54-3949qobkpbjoyi44/21/2025 1:00 PM EDT Treatment [facility] [address] [place] [address] Arnulfo Wang PTANOMS CI PTStart: 09-21-2024 End: 22-86-4695zwfmxhlziiEXIS CI PTComment on above:ArrivedStart: 09-19-2024 End: 93-00-1173Dibpspuyv (Vitamin B12) [Mass/volume] in Serum or PlasmaCleveland ClinicComment on above:Expected: 09/19/2024, Expires: 12/19/2024Start: 09-19-2024 End: 37-98-1350Tbykurbo [Mass/volume] in Serum or PlasmaCleveland ClinicComment on above:Expected: 09/19/2024, Expires: 12/19/2024Start: 09-19-2024 End: 18-52-3229Jbngpp [Mass/volume] in Serum or PlasmaCleveland ClinicComment on above:Expected: 09/19/2024, Expires: 12/19/2024Start: 09-19-2024 End: 27-79-9826Oysn and Iron binding capacity panel - Serum or PlasmaCleveland Clinic Foundation Work Phone: Comment on above:Expected: 09/19/2024, Expires: 12/19/2024Start: 09-19-2024 End: 88-20-8101Qmmcvrmkfbl [Units/volume] in Serum or PlasmaOhio Valley Hospital Comment on above:Expected: 09/19/2024, Expires: 12/19/2024Start: 09-18-2024 End: 33-98-8401miumofnkylLSAB CI PTComment on above:ArrivedStart: 09-18-2024 End: 44-99-3342Tyxzarn encounter moignyxtq80/15/2025 9:35 AM EDT Office Visit [facility] [address] [place] [address] Susan Claudio MD [address] [place] [address] [facility] SWS DERMStart: 09-13-2024 End: 14-36-0557rcudlsqkyr49/10/2025 10:30 AM EDT Evaluation [facility] [address] [place] [address] Verónica Dumont, KAMI ArrivedNOMS CI PTComment on above:ArrivedStart: 08-31-2024 End: 86-43-6533Ftmvbml encounter aevyvnuqj96/27/2025 2:30 PM EDT Office Visit Radiation Oncology [address] [place] [address] Jack Hoang MD [address] [place] [address] follow upRadiation OncologyComment on above:follow upStart: 08-24-2024 Hemoglobin A1c measurementDiabetes: Hemoglobin G7AHWEV HealthcareStart: 08-18-2024 End: 90-13-8488NPV W Auto Differential panel - BloodCOMPLETE BLOOD COUNT AND DIFFERENTIAL Lab Routine Syncope and collapse Malignant neoplasm of upper lobe of left lung (HCC) Expected: 08/18/2024, Expires: 11/17/2024[facility] Comment on above:Expected: 08/18/2024, Expires: 11/17/2024Start: 08-18-2024 End: 04-80-8241Rsgychyblcsdx metabolic 2000 panel - Serum or PlasmaCOMPREHENSIVE METABOLIC PANEL Lab Routine Syncope and collapse Malignant neoplasm of upper lobe of left lung (HCC) Expected: 08/18/2024, Expires: 11/17/2024leveland ClinicComment on above:Expected: 08/18/2024, Expires: 11/17/2024Start: 08-18-2024 End: 31-54-1113Dtvcckoe [Mass/volume] in Serum or PlasmaCORTISOL, SERUM Lab Routine Syncope and collapse Malignant neoplasm of upper lobe of left lung (HCC) Expected: 08/18/2024, Expires: 11/17/2024leveland ClinicComment on above: Expected: 08/18/2024, Expires: 11/17/2024Start: 08-18-2024 End: 11-19-4023Xbefxcfjhzj [Units/volume] in Serum or PlasmaTHYROID STIMULATING HORMONE Lab Routine Syncope and collapse Malignant neoplasm of upper lobe of lef t lung (HCC) Expected: 08/18/2024, Expires: 11/17/2024leveland ClinicComment on above:Expected: 08/18/2024, Expires: 11/17/2024Start: 08-17-2024 End: 41-40-5218Qxfznk-up encounterHematology/OncologyComment on above:4 week follow up with lab and chemotx NivoStart: 08-17-2024 End: 86-54-7269Duseryq encounter /13/2025 1:45 PM EDT Office Visit [facility] [address] [place] [address] 4 week follow up with lab and chemotx NivoNortMunson Healthcare [facility] LaboratoryComment on above:4 week follow up with lab and chemotx NivoStart: 08-16-2024 End: 32-37-6112rguledpxkz33/12/2025 11:45 AM EDT [facility] Hematology/Oncology [address] [place] [address] Lo Hancock MD [address] [place] [address] phone visit to go over resultsHematology/OncologyComment on above:phone visit to go over resultsStart: 08-08-2024 End: 96-57-1545Tbrwppjfiqrx / ancillary services ymswnhcsap45/04/2025 11:00 AM EDT Ancillary Procedure [facility] [address] [place] [address] GICC FNR MRStart: 08-06-2024 End: 14-13-6485Ufcycep encounter adzpudcqi94/02/2025 10:00 AM EDT Office Visit [facility] [place] [address] [place] [address] [place] [address] [place] [address] [facility] [place]ontStart: 08-03-2024 End: 50-16-3752Ohvdgst encounter nlvlloyem12/30/2025 8:00 AM EDT Appointment Radiology Pet CT [address] [address] PET Radiology Pet CTComment on above:PETStart: 07-26-2024 End: 84-27-6627Dvbdbbf encounter procedureNOMS FB ORTHOPAEDICSComment on above: ArrivedStart: 07-20-2024 End: 26-03-3648Ypqvah-up encounterHematology/OncologyComment on above:4 week follow up with lab and chemotx NivoStart: 07-20-2024 End: 00-61-0587Ccphoqg encounter adwgqnemz72/16/2025 1:15 PM EDT Office Visit [facility] [address] [place] [address] 4 week follow up with lab and chemotx NivoNortMunson Healthcare [facility] LaboratoryComment on above:4 week follow up with lab and chemotx NivoStart: 07-13-2024 End: 94-98-1395Djbvqv-up encounterHematology/OncologyComment on above:4 week follow up with lab and chemotx NivoStart: 07-13-2024 End: 40-57-9712Dmnkaoo encounter fuidluztn27/09/2025 1:15 PM EDT Office Visit [facility] [address] [place] [address] 4 week follow up with lab and chemotx NivoNortMunson Healthcare [facility] LaboratoryComment on above:4 week follow up with lab and chemotx NivoStart: 07-09-2024 End: 46-87-6225Nzvxywommb A1c in BloodHEMOGLOBIN A1C Lab Routine Malignant neoplasm of upper lobe of left lung (HCC) Abnormal blood chemistry Malaise and fatigue Expected: 07/09/2024 (Approximate), [facility]: [facility] Comment on above:Expected: 07/09/2024 (Approximate), Expires: 10/08/2024Start: 06-29-2024 End: 12-42-6635Xojyzfi encounter rtexckvjx34/25/2025 1:30 PM EDT Office Visit [facility] [address] [place] [address] 2 week labNortMunson [facility] Comment on above:2 week labStart: 75-96-8130Aqmxtgwzik A1c measurementDiabetes: Hemoglobin E1ONNXMSSM Health CareStart: 46-82-1603Vxekd BMI ScreeningAdult BMI ScreeningProAvita Health System [facility] Hospital SystemStart: 06-15-2024 End: 29-29-1175Jelmedg encounter xbrxhoplm58/11/2025 2:45 PM EDT Office Visit Radiation Oncology [address] [place] [address] Jack Hoang MD [address] [place] [address] Final radiation follow upRadiation OncologyComment on above:Final radiation follow upStart: 06-15-2024 End: 37-94-1967Qwlvjm-up encounterHematology/OncologyComment on above:follow up with lab and chemotx NivoStart: 06-15-2024 End: 98-25-4828Uhcxupz encounter procedureOchsner Medical Center LaboratoryComment on above:follow up with lab and chemotx Nivo6 week follow up Start: 06-13-2024 End: 10-76-0399Rphtkqj encounter uijpwbjbe68/09/2025 10:00 AM EDT Office Visit Palliative Medicine [address] [place] [address] Joey Scott, CANDLES POURER.PADDING MACHINE OPERATOR [address] [place] [address] 6 week follow upPalliative MedicineComment on above:6 week follow upStart: 06-13-2024 End: 54-75-9382Spmbadsfw qktpqqf4706/13/2024 9:15 AM EDT Education Nutrition Therapy [address] [place] [address] [place] [address] Nutrition after seeing Sharona DovegeNutrition TherapyComment on above:Nutrition after seeing Sharona DovegeStart: 06-08-2024 End: 45-87-1438Rzockef encounter huoovxbzt76/04/2025 2:30 PM EDT Office Visit Radiation Oncology [address] [place] [address] Jack Hoang MD [address] [place] [address] Final radiation follow upRadiation OncologyComment on above:Final radiation follow upStart: 06-08-2024 End: 84-62-5478Xqdhxat encounter ymmmjjxzy97/04/2025 10:30 AM EDT Office Visit Radiation Oncology [address] [place] [address] Jack Hoang MD [address] [place] [address] Final radiation follow upRadiation OncologyComment on above:Final radiation follow upStart: 06-06-2024 End: 57-79-1404Pvrjretgm jhoptai9406/06/2024 3:00 PM EDT Education Nutrition Therapy [address] [place] [address] [place] [address] Nutrition after seeing Sharona DovegeNutrition TherapyComment on above:Nutrition after seeing Sharona DovegeStart: 06-06-2024 End: 34-95-8184Crmibha encounter ecqonsaoh68/02/2025 2:30 PM EDT Office Visit Palliative Medicine [address] [place] [address] Joey Scott, CANDLES POURER.PADDING MACHINE OPERATOR [address] [place] [address] 6 week follow upPalliative MedicineComment on above:6 week follow upStart: 05-18-2024 End: 23-11-2358Pcurbq-up encounterHematology/OncologyComment on above:follow up with lab and chemotx NivoStart: 05-18-2024 End: 71-99-2755Egetpsl encounter aymqjegnv09/14/2025 12:45 PM EDT Office Visit [facility] [address] [place] [address] [place] [address] follow up with lab and chemotx NivoNortMunson Healthcare [facility] LaboratoryComment on above:follow up with lab and chemotx Nivo Start: 05-11-2024 End: 44-05-1702Fpkzrrv encounter procedureRadiation OncologyComment on above: SBRT LUNGStart: 05-09-2024 End: 09-49-5811Rkbblt-up encounterHematology/OncologyComment on above:follow up with lab and chemotx NivoStart: 05-09-2024 End: 54-16-8186Stmgyos encounter procedureNortMunson Healthcare [facility] LaboratoryComment on above:follow up with lab and chemotx NivoSBRT LUNGSBRT LUNG - 1245 LAB, 1 BOBBY, 130 CHEMOStart: 05-09-2024 End: 44-29-7817Exxwiat encounter procedureRadiation OncologyComment on above: SBRT LUNGStart: 05-07-2024 End: 75-28-8866Xmvygql encounter procedureRadiation OncologyComment on above: SBRT LUNGStart: 05-04-2024 End: 65-44-9363Qjbphay encounter qquynaxua59/28/2025 2:30 PM EST Office Visit Palliative Medicine [address] [place] [address] Joey Scott, CANDLES POURER.PADDING MACHINE OPERATOR [address] [place] [phone] 6 week follow upPalliative MedicineComment on above:6 week follow upStart: 05-04-2024 End: 24-08-2567Qsqtqdu encounter procedureRadiation OncologyComment on above: SBRT LUNGStart: 05-02-2024 End: 63-41-2898hivttmizfv23/26/2025 11:00 AM EST Visit (SP) Office Hematology/Oncology [address] [place] [address] Mihai Woody LMT [address] [place] [address] massage therapyHematology/OncologyComment on above:massage therapyStart: 05-02-2024 End: 58-27-6101Yepzgod encounter procedureRadiation OncologyComment on above: SBRT LUNGlab on day fo XRT startNEW START SBRT LUNGNEW START SBRT LUNG - GIVE NEW SCHEDStart: 04-30-2024 End: 33-91-7424Sgwlqlm encounter procedureRadiation OncologyComment on above: SBRT LUNGStart: 04-27-2024 End: 87-17-5141Fzzljbi encounter procedureRadiation OncologyComment on above: SBRT LUNGStart: 04-25-2024 End: 28-63-5977dlclwtfywc53/19/2025 11:00 AM EST Visit (SP) Office Hematology/Oncology [address] [place] [address] Mihai Woody LMT [address] [address] massage therapyHematology/OncologyComment on above:massage therapyStart: 04-25-2024 End: 13-77-5148Zmtdezf encounter procedureNortMunson Healthcare [facility] LaboratoryComment on above:lab on day XRT startNEW START SBRT LUNGSBRT LUNG Start: 04-18-2024 End: 28-19-0025Hiosonf encounter procedureNOMS CWM FMComment on above:Arrived Start: 04-16-2024 End: 58-81-0248Rtsspmw encounter scsgmvfmy51/10/2025 2:00 PM EST Office Visit [facility] [address] [place] [address] [place] [address] [place] [address] [place] [address] [facility]MHold[facility] – Holdenvilletart: 04-11-2024 End: 97-75-4046Mhkksw-up jccvnzsok12/05/2025 1:00 PM EST Visit (SP) Office Hematology/Oncology [address] [place], [place] [phone] Lo Hancock MD [address] [place] [address] Follow upHematology/OncologyComment on above:Follow upStart: 04-11-2024 End: 19-68-6651Tcyyqdn evaluation of patient and jcggin2104/11/2024 11:20 AM EST Nurse Visit Radiation Oncology [address] [place] [address] [place] [address] Tolu Nurse Radiation Ed Radt [address] [place] [address] [place] [address] Rad EdRadiation OncologyComment on above:Rad EdStart: 04-11-2024 End: 89-37-8031Hkaiquc encounter procedureRadiation OncologyComment on above:PRE SIM POSSIBLE SBRT LUNG, IV CONTRAST, NEEDS CONSENTSIM POSSIBLE SBRT LUNG, IV CONTRAST, NEEDS CONSENTStart: 04-09-2024 End: 61-99-2297Ilscbsu encounter procedureProCleveland Clinic [facility] - VascularStart: 04-04-2024 End: 18-79-0845OH.doppler Extremity arteries - bilateral for physiologic artery studyVas art doppler lwr bilat mult lev/PVR Vascular Ultrasound Routine Occlusive disease, arterial Atheroembolism of bilateral lower extremities ([facility]- HCC) Expected: 04/04/2024 (Approximate), Expires: 10/02/2024[facility] Work Phone: Comment on above:Expected: 04/04/2024 (Approximate), Expires: 10/02/2024Start: 04-03-2024 End: 73-65-5019Ylgznwg encounter procedureRadiology Pet CTComment on above:PET NM PET/CT SKULL-THIGH SUBSEQUENTPETStart: 03-23-2024 End: 17-83-3935Fubiwdx encounter qyfpaevfo11/17/2025 2:30 PM EST Office Visit Palliative Medicine [address] [place] [address] [place] [address] Joey Scott, CANDLES POURER.PADDING MACHINE OPERATOR [address] [place], [place] [phone] 3 month follow upPalliative MedicineComment on above: 3 month follow upStart: 51-25-7006Iyyyfbccoo A1c measurementDiabetes: Hemoglobin K5SYXHB HealthcareStart: 01-12-2025Medicare Annual Wellness (AWV)Medicare Annual Wellness (AWV)[facility] HealthcareStart: 03-15-2024 End: 64-57-2109Mnmgswf encounter ygsimmewi11/09/2025 1:30 PM EST Office Visit [facility] [address] [place] [address] Olegario Moreira MD [address] [facility] [address] [place] [address] Tung Low MD [address] [place] [facility] [place] [phone] [facility] CardiologyStart: 53-55-8872Faywotv Directive DiscussionAdvance Directive DiscussionPiermont ClinicStart: 01-01-2025Medicare Advantage Annual Wellness VisitMedicare Advantage Annual Wellness VisitSumma Health Wadsworth - Rittman Medical Centertart: 03-05-2024 End: 66-17-3691Gafnnjd encounter iqdpjuhrx48/30/2024 10:30 AM EST Office Visit [facility] [address] [place] [address] Olegario Moreira MD [address] [facility] [address] [place] [address] Gary Owen MD [address] [place] [address] [facility] CardiologyStart: 02-27-2024 End: 62-22-6649Jttddm-up /23/2024 11:00 AM EST Visit (SP) Office Hematology/Oncology [address] [place] [address] Lo Hancock MD [address] [place] [address] follow upHematology/OncologyComment on above:[address] follow upStart: 02-27-2024 End: 95-91-6545Odcevor encounter cynasixbp96/23/2024 10:45 AM EST Office Visit [facility] [address] [facility] [address] LabsNortMunson Healthcare [facility] LaboratoryComment on above:LabsStart: 02-24-2024 End: 22-63-9364Nzfsab-up krvxwdnaz12/20/2024 2:40 PM EST Visit (SP) Office Hematology/Oncology [address] [facility] [address] [place], [place] [phone] Lo Hancock MD [address] [facility] [address] follow upHematology/OncologyComment on above:[address] follow upStart: 02-24-2024 End: 79-00-7880Cckieby encounter zpvtticwr33/20/2024 2:30 PM EST Office Visit [facility] [address] [place] [address] LabsNortMunson Healthcare [facility]le[facility] LaboratoryComment on above:LabsStart: 02-08-2024 End: 32-94-6920Pnwyqrl encounter nhpajtxtt27/04/2024 11:00 AM EST Office Visit Thoracic Surgery [address] [place], [place] [phone] [place] [address] [place], [place] [phone] discuss CT resultsThoracic SurgeryComment on above:discuss CT resultsStart: 01-25-2024 End: 81-42-2323Zkwpliw encounter fomwmrqnn72/20/2024 9:15 AM EST Appointment Radiology Pet CT [address] [facility] [address] CT CAP Radiology Pet CTComment on above:CT CAPStart: 01-18-2024 End: 82-67-6232OLZ W Auto Differential panel - BloodCOMPLETE BLOOD COUNT AND DIFFERENTIAL Lab Routine Malignant neoplasm of lung, unspecified laterality, unspecified part of lung (HCC) Malignant neoplasm of upper lobe of left lung (HCC) Expected: 01/18/2024 (Approximate), Expires: [facility] Comment on above:Expected: 01/18/2024 (Approximate), Expires: 12/27/2024Start: 01-18-2024 End: 36-28-4279Cumbhqwptahyl metabolic 2000 panel - Serum or PlasmaCOMPREHENSIVE METABOLIC PANEL Lab Routine Malignant neoplasm of lung, unspecified laterality, unspecified part of lung (HCC) Malignant neoplasm of upper lobe of left lung (HCC) Expected: 01/18/2024 (Approximate), Expires: 12/27/[facility]24[facility] Comment on above:Expected: 01/18/2024 (Approximate), Expires: 12/27/2024Start: 01-18-2024 End: 14-13-3901FG Abdomen and Pelvis W contrast IVCT ABD/PEL W IVCON Radiology Routine Malignant neoplasm of lung, unspecified laterality, unspecified part of lung (HCC) Malignant neoplasm of upper lobe of left lung (HCC) Expected: 01/18/2024 (Approximate), Expires: 01/26/2025[facility] Work Phone: Comment on above:Expected: 01/18/2024 (Approximate), Expires: 01/26/2025Start: 01-18-2024 End: 56-89-4730AW Chest W contrast IVCT CHEST W IVCON Radiology Routine Malignant neoplasm of lung, unspecified laterality, unspecified part of lung (HCC) Malignant neoplasm of upper lobe of left lung (HCC) Expected: 01/18/2024 (Approximate), Expires: 01/26/2025[facility] HospitalComment on above:Expected: 01/18/2024 (Approximate), Expires: 01/26/2025Start: 01-17-2024 End: 49-91-9922Jqlzscs encounter eerngxnak59/12/2024 10:15 AM EST Office Visit [facility] [address] [place] [address] Dick Miranda MD [address] [place] [address] [facility] FMStart: 01-03-2024 End: 28-31-2111Vxydacg encounter procedureNOMS CI ORTHOPAEDICSComment on above: ArrivedStart: 12-29-2023 End: 55-99-0915Kwwnwhv encounter procedureNOMS CWM FMComment on above:Arrived Start: 12-28-2023 End: 42-63-9948Etxbuo-up encounterHematology/OncologyComment on above:3 week lab follow up and chemotx Carbo/Taxol/NivoStart: 12-28-2023 End: 19-33-5058Yufjhao encounter isdkomwqa61/23/2024 9:15 AM EDT Office Visit [facility] [address] [place] [address] 3 week lab follow up and chemotx Carbo/Taxol/NivoNortMunson Healthcare [facility]le[facility] Hospital LaboratoryComment on above:3 week lab follow up and chemotx Carbo/Taxol/NivoStart: 12-23-2023 End: 58-71-0188Wdasyhv encounter besnatdrh04/18/2024 1:00 PM EDT Office Visit Palliative Medicine [address] [place] [address] [place] [address] oJey Scott, CANDLES POURER.PADDING MACHINE OPERATOR [address] [place] [phone] New Referral for Pall MedPalliative MedicineComment on above:New Referral for Pall MedStart: 12-07-2023 End: 73-24-3957Sltmwl-up encounterHematology/OncologyComment on above:3 week lab follow up and chemotx Carbo/Taxol/NivoStart: 12-07-2023 End: 11-38-3252Dysgifc encounter rtmrijvmk45/02/2024 9:15 AM EDT Office Visit [facility] [address] [place], [place] [address] [address] 3 week lab follow up and chemotx Carbo/Taxol/NivoNortMunson Healthcare [facility]le[facility] Hospital LaboratoryComment on above:3 week lab follow up and chemotx Carbo/Taxol/NivoStart: 11-29-2023 End: 16-54-7263Juoetwwln mgxfaup9211/29/2023 12:45 PM EDT Education Nutrition Therapy [address] [place] [address] [place] [address] Primary malignant neoplasm of bronchus of left upper lobe (HCC) [C34.12] Nutrition TherapyComment on above:Primary malignant neoplasm of bronchus of left upper lobe (HCC) [C34.12]Start: 11-29-2023 End: 38-68-6817wocxmlhnpk85/24/2024 12:00 PM EDT Visit (SP) Office Hematology/Oncology [address] [facility] [place] [address] Nancy Osorio LMT PT WILL BE IN LOBBYHematology/OncologyComment on above:PT WILL BE IN LOBBYStart: 11-25-2023 End: 76-97-7127GLQ W Auto Differential panel - BloodCOMPLETE BLOOD COUNT AND DIFFERENTIAL Lab Routine Malignant neoplasm of upper lobe of left lung (HCC) Expected: 11/25/2023 (Approximate), Expires: 11/15/2024[facility] Work Phone: Comment on above:Expected: 11/25/2023 (Approximate), Expires: 11/15/2024Start: 11-25-2023 End: 85-09-9316Odlqirffr (Vitamin B12) [Mass/volume] in Serum or PlasmaVITAMIN B12 Lab Routine Malignant neoplasm of upper lobe of left lung (HCC) Expected: 11/25/2023 (Approximate), Expires: 11/15/2024[facility]: Expected: 11/25/2023 (Approximate), Expires: 11/15/2024Start: 11-25-2023 End: 75-35-5181Zmvhjyjibmtfc metabolic 2000 panel - Serum or PlasmaCOMPREHENSIVE METABOLIC PANEL Lab Routine Malignant neoplasm of upper lobe of left lung (HCC) Expected: 11/25/2023 (Approximate), Expires: 11/15/2024[facility] ClinicComment on above:Expected: 11/25/2023 (Approximate), Expires: 11/15/2024Start: 11-25-2023 End: 21-22-8541Nahfizhh [Mass/volume] in Serum or PlasmaFERRITIN Lab Routine Malignant neoplasm of upper lobe of left lung (HCC) Expected: 11/25/2023 (Appro ximate), Expires: 11/15/2024[facility] ClinicComment on above:Expected: 11/25/2023 (Approximate), Expires: 11/15/2024Start: 11-25-2023 End: 34-54-3943Mkuxoo [Mass/volume] in Serum or PlasmaFOLATE, SERUM Lab Routine Malignant neoplasm of upper lobe of left lung (HCC) Expected: 11/25/2023 ( Approximate), Expires: 11/15/2024[facility] ClinicComment [facility] above:Expected: 11/25/2023 (Approximate), Expires: 11/15/2024Start: 11-25-2023 End: 71-90-4366Qcgx and Iron binding capacity panel - Serum or PlasmaIRON AND TIBC Lab Routine Malignant neoplasm of upper lobe of left lung (HCC) Expected: 11/25/2023 (Approximate), Expires: 5[facility] ClinicComment on above: Expected: 11/25/2023 (Approximate), Expires: 11/15/2024Start: 11-25-2023 End: 77-09-9629ymsihxjgjb85/20/2024 9:45 AM EDT Infusion Center Hematology/Oncology [address] [facility] [place] [address] david counts lab check, patient to stay for results ; lab drawn at 930 Hematology/OncologyComment on above:david counts lab check, patient to stay for results ; lab drawn at 930Start: 11-25-2023 End: 37-93-6155Vdbjttv encounter /20/2024 9:30 AM EDT Office Visit [facility] [address] [place], [place] [address] [address] david counts lab check, patient to stay for results ; [facility] 930[facility] LaboratoryComment on above:david counts lab check, patient to stay for results ; lab drawn at 930Start: 11-24-2023 End: 81-93-8225bhpuexyjzw90/19/2024 10:15 AM T [facility] Hematology/Oncology [address] [place] [address] [place] [address] david counts lab check, patient to stay for results ; lab drawn at 930 Hematology/OncologyComment on above:david counts lab check, patient to stay for results ; lab drawn at 930Start: 11-24-2023 End: 95-04-9956Fqbwgkv encounter /19/2024 10:00 AM EDT Office Visit [facility] [address] [facility] [address] david counts lab check, patient to stay for results ; lab drawnat 930[facility] LaboratoryComment on above:david counts lab check, patient to stay for results ; lab drawn at 930Start: 11-16-2023 End: 06-01-7892iplnxwqotd63/11/2024 4:15 PM EDT Visit (SP) Office Hematology/Oncology [address] [facility] [address] [place], [place] [phone] Lo Hancock MD [address] [address] [place] [address] Appt after EBUS on 10-[address] Oreilly on 11-09-23. Hematology/OncologyComment on above:Appt after EBUS on 10-[address] Oreilly on 11-09-23.Start: 11-16-2023 End: 14-27-7540Toipci-up encounterHematology/OncologyComment on above:lab follow up and chemotx Carbo/Taxol/NivoStart: 11-16-2023 End: 53-63-8782Njsuqoo encounter ogqgtzbqy66/11/2024 9:00 AM EDT Office Visit [facility] [address] [place] [address] lab follow up and chemotx Carbo/Taxol/NivoNortMunson Healthcare [facility] LaboratoryComment on above:lab follow up and chemotx Carbo/Taxol/NivoStart: 11-10-2023 End: 03-41-7964Ducvpqu encounter rlhxsortp69/05/2024 12:45 PM EDT Office Visit [facility] - Medical Oncology [address] [place] [phone] Gerald Abdi MD [facility] [address] [place] [address] [facility] - Medical OncologyStart: 11-09-2023 End: 76-07-0591Vuvjrur encounter zymaacgqv48/04/2024 1:00 PM EDT Office Visit Thoracic Surgery [address] [place] [address] [place] [address] [place] [address] Consult: Malignant Neoplasm of upper lobe of left lungThoracic SurgeryComment on above:Consult: Malignant Neoplasm of upper lobe of left lung Start: 69-55-9935Rllql-19 Vaccine ( season)Covid-19 Vaccine ( season)[facility] Centertart: 65-56-5867Qlauz-19 Vaccine ()Covid-19 Vaccine ()[facility] Centertart: 11-06-2023 Influenza vaccinationSumma Health Wadsworth - Rittman Medical Centertart: 11-03-2023 End: 98-75-2735Qlxqgmh encounter wumidpycz91/29/2024 10:15 AM EDT Office Visit [facility] - Medical Oncology [address] [place] [phone] Gerald Abdi MD [address] [place] [phone] [facility] - Medical OncologyStart: 11-02-2023 End: 01-69-3823Aabzgvz encounter /28/2024 1:30 PM EDT Office Visit Thoracic Surgery [address] [place] [address] [place] [address] [place] [address] Consult: Malignant Neoplasm of upper lobe of left lung Thoracic SurgeryComment on above:Consult: Malignant Neoplasm of upper lobe of left lungStart: 11-01-2023 End: 77-49-1351Podswugyk to same day surgery xgowfq8111/01/2023 1:30 PM EDT - 11/01/2023 3:00 PM EDT Surgery [facility]oscopy - ENDO [address] [place] [address] Hugh Craig MD [address] [place], [place] [phone] BRONCHOSCOPY,RIGID/FLEXIBLE W/ FLUORO,W/ENDOBRONCHIAL ULTRASOUND (EBUS) GUIDED TRANSTRACHEAL/ TRANSBRONCHIAL ASPIRATION/BIOPSY,1 OR 2 MEDIASTINAL AND/OR HILAR LYMPH NODE STATIONS/STRUCTURESFaBerkshire Medical Center Endoscopy - ENDOComment on above:BRONCHOSCOPY,RIGID/FLEXIBLE W/ FLUORO,W/ENDOBRONCHIAL ULTRASOUND (EBUS) GUIDED TRANSTRACHEAL/ TRANSBRONCHIAL ASPIRATION/BIOPSY,1 OR 2 MEDIASTINAL AND/OR HILAR LYMPH NODE STATIONS/STRUCTURESStart: 71-98-4855Irxslqbqqs hospital visit by /27/2024 1:30 PM EDT Hospital Encounter [facility] Endoscopy - ENDO [address] [place] [address] Hugh Craig MD [address] [facility] [place], [place] [phone] Lung nodule [R91.1][facility] Endoscopy - ENDOComment on above:Lung nodule [R91.1]Start: 11-01-2023 End: 47-18-9194Xrhyykk ebus guided sampl 1/2 node station/strux BRONCHOSCOPY,RIGID/FLEXIBLE W/ FLUORO,W/ENDOBRONCHIAL ULTRASOUND (EBUS) GUIDED TRANSTRACHEAL/ TRANSBRONCHIAL ASPIRATION/BIOPSY,1 OR 2 MEDIASTINAL AND/OR HILAR LYMPH NODE STATIONS/STRUCTURES Lung nodule 11/01/2023 12:10 PM EDTFV GIStart: 11-01-2023 End: 73-92-4097Rowthhe ebus guided sampl 1/2 node station/struxFV GIStart: 10-28-2023 End: 14-02-2644svfvxcmrnw97/23/2024 11:00 AM EDT [facility] Pulmonology [facility] [address] [place] [address] Nancy Elizondo, CANDLES POURER.PADDING MACHINE OPERATOR [address] [place], [place] [phone] H/P BRONCH 10/31Pulmonology [facility] Comment on above:H/P BRONCH 10/31Start: 10-26-2023 End: 52-73-2960Bvwvhhocwk lvkijpbziqqh72/21/2024 2:20 PM EDT PAT Pre Anesthesia [address] [facility] [place] [address] 2, Pacc [place] [address] [facility] [place] [address] in person per RN ASAPPre AnesthesiaComment on above:in person per RN ASAPStart: 10-25-2023 End: 44-66-4078Uqvzcam encounter pqebaclfy87/20/2024 10:00 AM EDT Office Visit [facility] [address] [place] [address] Susan King, CANDLES POURER-PADDING MACHINE OPERATOR [address] [facility] [address] [place] [address] [facility] NeurologyStart: 10-21-2023 End: 94-35-3821qftrdjjsoy56/16/2024 4:30 PM EDT Visit (SP) Office Hematology/Oncology [address] [place], [place] [phone] Lo Hancock MD [address] [address] abdi second opinion dx lung cancerPET scan scheduled 10/21/2023 dary AlasHematology/OncologyComment on above:ref dr abdi second opinion dx lung cancerPET scan scheduled 10/21/2023 dary AlasStart: 10-21-2023 End: 08-90-8381Owxbtax encounter zlbsfsbil22/16/2024 8:30 AM EDT [facility]ment [facility] [address] [place] [address] [facility] Start: 10-20-2023 End: 55-09-9120Dukrvbg encounter gixzevsnq43/15/2024 12:00 PM EDT Office Visit [facility] [address] [place] [address] Estefany Lang, DO [address] [address] [facility] MedicineStart: 10-19-2023 End: 17-59-2911Kltibhv encounter ueohttucv99/14/2024 10:00 AM EDT Office Visit [facility] [address] [place] [address] Dick Miranda MD [address] [place] [address] [facility] FMStart: 10-13-2023 End: 95-66-8123Mppiwki encounter dfuvjypgq11/08/2024 3:30 PM EDT Office Visit [facility] - Medical Oncology [address] [place] [address] Gerald Abdi MD [address] [place] [address] [address] [place] [address] [facility] - Medical OncologyStart: 10-05-2023 End: 35-65-1153Lbywoeq encounter /31/2024 1:00 PM EDT Appointment [facility] - Interventional Radiology [address] [place] [address] CtzZsmmit [facility] - Interventional Radiology Start: 10-03-2023 End: 24-72-1231Cjtongc encounter hashbumfr03/29/2024 1:00 PM EDT Office Visit [facility] [address] [place] [address] [place] [address] Olegario Moreira MD [address] [facility] [address] [place] [address] [facility]Start: 09-26-2023 End: 76-71-0809Ffswjel encounter inuitvdiq67/22/2024 8:00 AM EDT Appointment [facility] - CT Imaging [address] [place] [address] Olegario Moreira MD [address] [facility] [address] [place] [address] [facility] - CT ImagingStart: 09-22-2023 End: 26-13-0518Tsnwycg encounter /18/2024 9:50 AM EDT Office Visit [facility] [address] [place] [address] Susan Claudio MD [address] [place] [address] [facility]: 12-37-3680Cfbwaytmr vaccination Influenza Vaccine (#1)[facility] HealthcareComment on above:Postponed from 11/05/2022 (Patient Refused)Start: 06-27-2023 End: 26-98-2860JCX Abdominal Aorta and Bilateral Runoff Vessels W contrast IVCT angiogram abdominal aorta with runoff Imaging Routine Occlusive disease, arterial Expected: 06/27/2023, Expires: 06/26/2024[facility] Work Phone: Comment on above:Expected: 06/27/2023, Expires: 06/26/2024Start: 06-17-2023 End: 04-83-2020Gfflqsb encounter cddpwawow83/12/2024 9:00 AM EDT Office Visit [facility] [address] [place] [address] [phone] Georges NP [address] [place], [place] [phone] [facility] FMStart: 37-24-0231Pedhhdr ScreeningTobacco Screening [facility] SystemStart: 04-20-2023 End: 47-30-4907Ofosvjxcpsp [Units/volume] in Serum or PlasmaTSH Lab Routine Hypothyroidism, postradioiodine therapy (CMS/HCC) Expected: 04/20/2023 (Approximate), Expires: 04/20/2024[facility] Work Phone: Comment on above:Expected: 04/20/2023 (Approximate), Expires: 04/20/2024Start: 04-20-2023 End: 09-25-5543Rmdkdiokc (T4) free [Mass/volume] in Serum or PlasmaT4, free Lab Routine Hypothyroidism, postradioiodine therapy (CMS/HCC) Expected: 04/20/2023 (Approximate), Expires: 04/20/2024[facility] HealthcareComment on above:Expected: 04/20/2023 (Approximate), Expires: 04/20/2024Start: 04-20-2023 End: 61-46-2838Hzjjietvbvbhbohw (T3) Free [Mass/volume] in Serum or PlasmaT3, free Lab Routine Hypothyroidism, postradioiodine therapy (CMS/HCC) Expected: 04/20/2023 (Approximate), Expires: 04/20/2024[facility] HealthcareComment on above: Expected: 04/20/2023 (Approximate), Expires: 04/20/2024Start: 36-95-1117Bfvguxf Directive DiscussionAdvance Directive DiscussionSumma Health Wadsworth - Rittman Medical Centertart: 68-15-3318Mqdch-19 Vaccine ( season)Covid-19 Vaccine ( season)[facility] Centertart: 95-21-2002Vkeva-19 Vaccine () Covid-19 Vaccine ()[facility] Centertart: 39-94-8987Xphjpzgwo aortic aneurysm screeningAbdominal Aortic Aneurysm (AAA) ScreenProTriHealth Bethesda Butler Hospitaltart: 53-92-4162Abal Risk ScreeningFall Risk ScreeningProTriHealth Bethesda Butler Hospitaltart: 09-32-5614Jhkxmcqrb for malignant neoplasm of colonOhio Valley Hospital Start: 83-90-0220KGS Vaccine (1 - 1-dose 60+ series)RSV Vaccine (1 - 1-dose 60+ series)[facility] Centertart: 73-50-0512CBK Vaccine (1 - Risk 60-74 years 1-dose series)RSV Vaccine (1 - Risk 60-74 years 1-dose series)[facility] Centertart: 64-75-9494Ylalwuzpb for malignant neoplasm of colonSumma Health Wadsworth - Rittman Medical Centertart: 78-40-8364Xtyxegnrps acid therapyAlpha-1 Antitrypsin Deficiency Screening [facility] Centertart: 94-75-7196UPpX,Tdap and Td Vaccines (1 - Tdap)DTaP,Tdap and Td Vaccines (1 - Tdap)[facility] Centertart: 98-96-7277Nmkzj microalbumin profileDTaP,Tdap,Td Vaccine (1 - Tdap)[facility] Cent[facility]art: 41-94-1735Rnmoj BMI Follow Up PlanAdult BMI Follow Up PlanNovant Health Huntersville Medical Centertart: 47-66-7119Nvqmvf PCP Team Chronic Disease VisitAnnual PCP Team Chronic Disease VisitSumma Health Wadsworth - Rittman Medical Centertart: 02-14-9665Iserwor ScreeningAnxiety ScreeningSumma Health Wadsworth - Rittman Medical Centertart: 11-55-8750RB Controlled (<130/80)BP Controlled (<130/80)[facility] Cent[facility]art: 36-38-4908Aslnazhwsl ScreeningDepression ScreeningSumma Health Wadsworth - Ritt[facility] Medical Centertart: 63-15-0515Ehzgxvzrt C screeningHepatitis C ScreeningSumma Health Wadsworth - Rittman Medical Centertart: 11-81-9932FoynjsyzqyJtsyjshmndAqfgcqpza Clinic Start: 09-30-7162Pswxvjlzhf ScreeningDepression ScreeningC[facility] Start: 09-29-1956Medicare Annual Wellness VisitMedicare Annual Wellness Visit [facility] Centertart: 57-70-1080Czyplitlm for malignant neoplasm of colonNOMS HealthcareStart: 86-56-6344Ayewsrc CounselingTobacco Counseling [facility] End: 96-92-8911FLF W Auto Differential panel - BloodCOMPLETE BLOOD COUNT AND DIFFERENTIAL Lab Routine Malignant neoplasm of upper lobe of left lung (HCC) Immunotherapy Abnormal blood chemistry Malaise and fatigue Every 3 weeks for 18 Occurrences starting 11/15/2023 until 11/14/2024leveland ClinicComment on above:Every 3 weeks for 18 Occurrences starting 11/15/2023 until 11/14/2024 End: 29-98-2519QYR W Auto Differential panel - BloodCOMPLETE BLOOD COUNT AND DIFFERENTIAL Lab Routine Malignant neoplasm of upper lobe of left lung (HCC) Abnormal blood chemistry Malaise and fatigue Once per month for 12 Occurrences starting 04/11/2024 until 04/11/2025[facility] HospitalComment on above:Once per month for 12 Occurrences starting 04/11/2024 until 04/11/2025 End: 55-41-3714Gsvziegcubmgl metabolic 1999 panel - Serum or PlasmaCOMPREHENSIVE METABOLIC PANEL Lab Routine Malignant neoplasm of upper lobe of left lung (HCC) Immunotherapy Abnormal blood chemistry Malaise and fatigue Every 3 weeks for 18 Occurrences starting 11/15/[address] [place] [address] Work Phone: Comment on above:Every 3 weeks for 18 Occurrences starting 11/15/2023 until 11/14/2024 End: 01-58-3456Etbazrjkxvayr metabolic 1999 panel - Serum or PlasmaCOMPREHENSIVE METABOLIC PANEL Lab Routine Malignant neoplasm of upper lobe of left lung (HCC) Abnormal blood chemistry Malaise and fatigue Once per month for 12 Occurrences starting 04/11/[address] [place] [address] Work Phone: Comment on above:Once per month for 12 Occurrences starting 04/11/2024 until 04/11/2025 End: 93-17-7767Svpudskr [Mass/volume] in Serum or PlasmaCORTISOL, SERUM Lab Routine Malignant neoplasm of upper lobe of left lung (HCC) Immunotherapy Abnorm al blood chemistry Malaise and fatigue Every 6 weeks for 9 Occurrences starting 11/15/2023 until 11/14/2024[facility] HospitalComment on above:Every 6 weeks for 9 Occurrences starting 11/15/2023 until 11/14/2024 End: 15-91-3908Tvwfjfxh [Mass/volume] in Serum or PlasmaCORTISOL, SERUM Lab Routine Malignant neoplasm of upper lobe of left lung (HCC) Abnormal blood chemi stry Malaise and fatigue Once per month for 12 Occurrences starting 04/11/2024 until 04/11/2025[facility] HospitalComment on above:Once per month for 12 Occurrences starting 04/11/2024 until 04/11/2025 End: 36-27-4078Scbrpzeath includes GFR, serumCreatinine includes GFR, serum Lab Routine Occlusive disease, arterial 1 Occurrences starting 06/27/2023 until 06/26/2024[facility]Comment [facility] above:1 Occurrences starting 06/27/2023 until 06/26/2024 End: 32-90-0484BUT COMPLETEECG COMPLETE ECG Routine Lung nodule 1 Occurrences starting 10/24/[address] [place] [address] Work Phone: Comment on above:1 Occurrences starting 10/24/2023 until 10/23/2024ECG COMPLETEECG COMPLETE ECG 10/25/2023 11:[facility] End: 51-99-8236DfzdofuyongzfkofXLYU Cardiology Routine Preoperative cardiovascular examination 1 Occurrences starting 02/08/2024 until 02/07/2025 [facility] above:1 Occurrences starting 02/08/2024 until 02/07/2025 End: 38-36-5731Qotuypwhpm A1c in BloodHEMOGLOBIN A1C Lab Routine Malignant neoplasm of upper lobe of left lung (HCC) Immunotherapy Abnormal blood chemistry Malaise and fatigue Every 6 weeks for 9 Occurrences starting 11/15/2023 until 11/14/2024[facility] HospitalComment on above:Every 6 weeks for 9 Occurrences starting 11/15/2023 until 11/14/2024 End: 19-04-2659FKPW DIFFUSION CAPACITY (DLCO)LUNG DIFFUSION CAPACITY (DLCO) PFT Routine Preoperative testing 1 Occurrences starting 02/08/2024 until 03/09/2025 [facility] HospitalComment on above:1 Occurrences starting 02/08/2024 until 03/09/2025 End: 37-02-4608PH Brain WO and W contrast IVMRI BRAIN WO/W IVCON Radiology Routine Immunotherapy Nonintractable headache, unspecified chronicity pattern, unspecified headache type 1 Occurrences starting 08/01/2024 until 08/31/2025 [facility] Work Phone: Comment on above:1 Occurrences starting 08/01/2024 until 08/31/2025 End: 25-66-6383SG Heart Perfusion W stress and W radionuclide IVNM CARDIAC PERF STRESS/PHARM Radiology Routine Preoperative cardiovascular examination 1 Occurrences starting 02/08/2024 until 03/09/2025[facility] Work Phone: Comment on above:1 Occurrences starting 02/08/2024 until 03/09/2025 End: 52-54-4198QK Lung Perfusion quantitativeNM LUNG QUANT PERFUSION Radiology Routine Preoperative testing Encounter for preoperative vascular examination 1 Occurrences starting 02/08/2024 until 03/09/2025[facility] HospitalComment on above:1 Occurrences starting 02/08/2024 until 03/09/2025OUTSIDE SURG PATH SLIDE REVIEWOUTSIDE SURG PATH SLIDE REVIEW Lab Routine Malignant neoplasm of upper lobe of left lung (HCC) Ordered: 10/24/2023[facility] Work Phone: Comment on above:Ordered: 10/24/2023atient Education Oxycodone Prednisone Know your MedSelect [facility] Work Phone: [facility] Work Phone: End: 96-61-2155JSS+CT Guidance for localization of tumor of Skull base to mid-thigh-- W 18F-FDG IVNM PET/CT SKULL-THIGH SUBSEQUENT Radiology Routine Malignant neoplasm of unspecified part of unspecified bronchus or lung (HCC) 1 Occurrences starting 03/13/2024 until 04/12/2025[facility] Work Phone: Comment on above:1 Occurrences starting 03/13/2024 until 04/12/2025 End: 45-82-9033AVY+CT Guidance for localization of tumor of Skull base to mid-thigh-- W 18F-FDG IVNM PET/CT SKULL-THIGH SUBSEQUENT Radiology Routine Syncope and collapse Malignant neoplasm of upperlobe of left lung (HCC) 1 Occurrences starting 07/20/2024 until 08/19/2025[facility] Work Phone: Comment on above:1 Occurrences starting 07/20/2024 until 08/19/2025 End: 29-37-3855Lycubuinq function test Spirometry (Flow Volume Loop) pre/post short acting bronchodilator w/ DLCO (diffusion study)Pulmonary function test Spirometry (Flow Volume Loop) pre/post short acting bronchodilator w/ DLCO ( diffusion study) PFT Routine Squamous carcinoma of lung, left (CMS-HCC) 1 Occurrences starting 10/13/2023 until 10/12/2024[facility] Work Phone: Comment on above:1 Occurrences starting 10/13/2023 until 10/12/2024 End: 87-63-3192YAT MINUTE WALKSIX MINUTE WALK PFT Routine Preoperative testing 1 Occurrences starting 02/08/2024 until 6[facility] ClinicComment on above:1 Occurrences starting 02/08/2024 until 03/09/2025 End: 72-73-0208LGJZEKOGKJ BASELINE ONLYSPIROMETRY BASELINE ONLY PFT Routine Preoperative testing 1 Occurrences starting 02/08/2024 until 6[facility] ClinicComment on above:1 Occurrences starting 02/08/2024 until 03/09/2025 End: 21-12-4702Kreotuldrie [Units/volume] in Serum or PlasmaTHYROID STIMULATING HORMONE Lab Routine Malignant neoplasm of upper lobe of left lung (HCC) Immunoth erapy Abnormal blood chemistry Malaise and fatigue Every 6 weeks for 9 Occurrences starting 11/15/2023 until 5[facility] ClinicComment on above:Every 6 weeks for 9 Occurrences starting 11/15/2023 until 11/14/2024 End: 50-16-2553Twhxaqtthfi [Units/volume] in Serum or PlasmaTHYROID STIMULATING HORMONE [...] HealthcareUrine screening for protein Diabetes: Urine Protein ScreeningCrittenton Behavioral Health End: 64-09-6267SC Chest PA and LateralXR CHEST 2V FRONTAL/LAT Radiology Routine Preoperative testing 1 Occurrences starting 02/14/2024 until 03/16/2025[facility] Work Phone: Comment on above:1 Occurrences starting 02/14/2024 until 03/16/2025 End: 06-48-3563LV Chest PA and LateralXR CHEST 2V FRONTAL/LAT Radiology Routine Radiation-induced pulmonary fibrosis (HCC) Shortness of breath 1 Occurrences starting 10/25/2024 until 11/24/2025[facility] Work Phone: Comment on above:1 Occurrences starting 10/25/2024 until 11/24/2025 Immunizations Immunization DateImmunizationNotesCare AhowldnmYpwwayyu86-12-3486uwybmydvpfwb polysaccharide vaccine, 23 Nena Miranda MD Work Phone: [facility] HealthQxwmghnylw02-38-6683jsdfzj vaccine recombinant Dick Miranda MD Work Phone: [facility] HealthVdixghmzwe08-91-5789ajqgaa vaccine recombinant Dick Miranda MD Work Phone: [facility] HealthFkqwbeltyb64-63-3776yppftnffrdon conjugate vaccine, 13 Nena Miranda MD Work Phone: [facility] HealthOuyxpqkuhk91-65-4406vognpsuarcaw polysaccharide vaccine, 23 Nena Miranda MD Work Phone: [facility] Payers DatePayer CategoryPayerPolicy [id number] 2025Self-pay [id number] 2022Medicare (Managed Care) [id number] [id number] 2018Medicare [facility] MEDICARE Member Subscriber Plan / Payer (Effective 2017-Present) Name: Erin Pena Relation to Subscriber: Self Name: Erin Pena Payer ID: [id number] (NAIC) Group ID: [id number] Type: Not on file Address: [facility] [address] [place] [id number] [id number] 2.16.840.1.703698.3.579.2.1068 [id number] 2.16.840.1.201626.3.57[id number] 2.16.840.1.305360.3.579.[id number] 2.16.840.1.817553.3.579.2.42158-06-9829Efhhqkq38167160 2.16.840.1.072328.3.579.2.504116-38-8250Kqvgqdq39898938 2.16840.1.497743.3.579.[id number] 2.16840.1.116208.3.57[id number] 2.16840.1.591456.3.579.2.[id number] 2.16840.1.428527.3.579.2.202576-49-6217Jvnrscd13479039 2.16840.1.564848.3.579.2.227331-02-0087Grvbdhe97491559 2.16840.1.835011.3.579.2.254962-37-5173Sxfmdra026419485 2.16840.1.786768.3.579.2.514678-56-4853Pzummze040229965 2.16840.1.850320.3.57[id number] 2.16840.1.092335.3.579.[id number] 2.16840.1.987213.3.57[id number] 2.16840.1.247877.3.579.2.611262-93-4308Bmhtwut658710610 2.16840.1.161376.3.579.2.828418-71-0999Ryqzzqu31202137 2.840.1.340357.3.579.2.642202-73-4047Rcsucxn819651423 2.0.1.524483.3.579.2.600893-35-9357Rcgbjwl324859385 2.0.1.924101.3.579.2.605061-50-2103Cyfdbho34055666 2.0.1.634110.3.579.2.418804-19-2165Fnohlrh62777548 2.0.1.091670.3.579.2.674960-78-2273Cojdoow74270900 2.0.1.048487.3.579.2.002608-87-9256Mlsqxfg95820362 2.840.1.787614.3.579.2.828807-19-4285Smkvspz24258929 2.0.1.922354.3.579.2.811804-49-2924Dpmddmz50443622 2.840.1.478121.3.579.2.567996-08-2827Ngceolj93161615 2.840.1.911161.3.579.2.527702-43-4068Wtsisgl22568404 2.16840.1.639622.3.579.2.489483-41-1540Cqoroaj42118166 2.16840.1.066796.3.579.2.803548-93-7007Xdfayan54509451 2.16.840.1.865095.3.579.2.818595-52-6591Rpzarek68379614 2.16.840.1.600147.3.579.2.381264-15-7905Xuegifj55935974 2.16840.1.745078.3.579.2.154993-72-9170Hodfsjj69827506 2.16840.1.728112.3.579.2.986289-16-3267Prwkjax10493127 2.160.1.056939.3.579.2.709689-37-6407Vhqdoxn43436703 2.16840.1.911452.3.579.2.658442-08-4976Gvtvssp11177574 2.16840.1.747160.3.579.2.211731-39-9276Nhjvcze32268223 2.16840.1.295570.3.579.2.399675-20-1189Wiruhxt6889079 2.16840.1.481891.3.579.2.845930-78-4126Qenybwr8867794 2.16840.1.440428.3.579.2.116503-29-5226Faqwdog4584924 2.16840.1.557275.3.579.2.608026-35-6779Iziduok1491444 2.16840.1.502882.3.579.2.010110-89-8161Hdwnloe3081614 2.16840.1.661344.3.579.2.949948-25-0772Vmcvlst4269193 2.16840.1.606640.3.579.2.069486-45-3146Naxvlfw4005173 2.0.1.300156.3.579.2.138144-29-5752Dxynxll2587418 2.0.1.590436.3.579.2.589112-51-2572Aqpcska460130572 2.0.1.562251.3.579.2.970CwujnroDLCAV8931084 65541vye-21q8-7r90-7612-546d3112bv6qKabnjjw30969719 2.840.1.370258.3.579.2.531 Social History DateTypeDetailFacilityStart: 03-07-1973 End: 73-38-8173Arnhsqf smoking status NHISSmoker (finding)[facility]Start: 60-09-6836Wig [facility]: 09-13-2022 End: 83-00-4962Wzvtmni smoking status NHISSmokes tobacco dailyNOMS Healthcare Start: 03-07-1973 End: 42-53-1310Xarngre of tobacco useCigarette SmokerNOMS HealthcareStart: 09-13-2022 End: 14-31-0355Utwgbeicfl smoked current (pack per day) - Reported0.3NOMS HealthcareStart: 09-13-2022 End: 54-30-1973Colcleb use and exposureSmokeless tobacco non-userNOMS Healthcare Start: 04-20-2023 End: 99-11-6843Fjcpkxp intakeCurrent drinker of alcohol (finding)[facility] Start: 04-19-2023 End: 52-53-9023Jensgmrbolf, Afraid, Rape, and Kick questionnaire [HARK][facility] HealthcareWithin the last year, have you been afraid of your partner or ex-partner?NoNOMS HealthcareStart: 64-98-5527As you belong to any clubs or organizations such as sikh groups, unions, fraternal or athletic groups, or [...] before (I/we) got money to buy more.Never trueNOUT HealthcareStart: 38-77-0355Kmrgmir CommentSmokes 6-30 mins after waking upNOUT HealthcareStart: 13-08-9499Yrfjzgg Commentcaffeine: 2-3 cups per day coffeeCrittenton Behavioral HealthStart: 49-49-1678Ckq Assigned At BirthNot on fileSALT LAKE [facility]AL [facility] HealthcareHistory of tobacco usePassive smoker [facility] Medical Centertart: 93-36-0712Owrtahw use and exposureUser of smokeless tobaccoSumma Health Wadsworth - Rittman Medical Centertart: 10-20-2023 End: 86-79-9164Qgctsvl intakeCurrent non-drinker of alcohol (finding)[facility] Centertart: 10-21-2023 End: 77-90-2903Vihybel smoking status NHISEx-smokerSumma Health Wadsworth - Rittman Medical Centertart: 62-01-6554Xtzseyg CommentQuit September 26Sum[facility] Health [facility] Medical Centertart: 10-12-2023 End: 09-82-7847Zkhhsqsen beverage intakeEx-drinker (finding)[facility] Start: 86-64-1188Gxasqur CommentmoderateProAvita Health System [facility] Hospital SystemStart: 10-10-2014 SexMale (finding)ProMChildren's [facility] SystemStart: 41-95-6061Gvwendo smoking status NHISNever smoked tobacco (finding)[facility] Daytontart: 07-16-3810XCDO Follow upSDOH Follow upKettering Health – [facility] Work Phone: Goals DatePatient GoalDesired Activity/StatePersonal health goalComment on above: Evaluation of progress towards goal: In progress: Would like to DC to home today, await further tests and consults prior to DCPersonal health goal Functional Status BkfpLrzjjstqduOpvjmrVbxlgbpt55-89-9561Vug you deaf, or do you have serious difficulty hearingNo 08/27/2014 11:07 AM Liliya Ely MA [facility] 09-13-4275Lod you blind, or do you have serious difficulty seeing, even when wearing glassesNo 08/27/2014 11:07 AM Liliya Ely MA [facility] 77-44-9559Wi you have serious difficulty walking or climbing stairsNo 08/27/2014 11:07 AM Liliya Ely MA [facility]06-23-2015Do you have difficulty dressing or bathingNo 08/27/2014 11:07 AM [facility] Liliya Mosley MA [facility] HospitalZgebdx91-56-4184Ahrlhvn of a physical, mental, or emotional condition, do you have difficulty doing errands alone such as visiting a physician's office or shoppingNo 08/27/2014 11:07 AM [facility] Liliya Mosley MA [facility] Mental Status KtljAciqswtzkoXyosioWpcvhgtm55-13-1715Mrsaygl of a physical, mental, or emotional condition, do you have serious difficulty concentrating, remembering, or making decisionsNo 08/27/2014 11:07 AM [facility] Liliya Mosley MA [facility] Clinical Notes 04-20-2023 to 12-07-2024 Note Date & OzeqWprxGiavuegw89-71-4772 [facility]09-26-2025 [facility]Fire[facility]-19-2025 NoteFire[facility] 11-16-2024 [facility]09-05-2025 Telephone encounter Note* Telephone Encounter - Noemy Chicas RN - 11/09/2024 2:57 PM EDT Results phoned to pt per Dr Hancock. Noemy Chicas RN [facility] Work Phone: [phone] Miscellaneous Notes* Telephone Encounter - Noemy Chicas [...] note were not included. documented in this encounterOhio Valley Hospital09-05-2025 Telephone encounter Note * Telephone Encounter - Noemy Chicas RN - 11/09/2024 1:15 PM EDT Please review PET results and advise. Noemy Chicas RN [facility]09-05-2025 Telephone encounter Note* Telephone Encounter - Evangelina Linton - 11/09/2024 12:36 PM EDT Images from the original note were not included. [facility]09-05-2025 Instructions* Patient Instructions* Lo Hancock MD - [...] any questions or concerns. documented in this encounterOhio Valley Hospital09-05-2025 NoteFirelands Regional Medical Center09-05-2025 History of Present illness Narrative* Lo Hancock MD - 11/09/2024 12:25 PM EDT Images from the original note were not included. NAME: Erin Pena [facility] NO[facility] [id number] DATE OF SERVICE: November 09, 2024 (Khadijah) [...] in 2 weeks if symptoms persist. 7. alf (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 (Z79.52) Patient [...] Lung, left lower lobe, core biopsy: at [facility] - Invasive squamous cell carcinoma Comment: [...] internal carotid artery. 09/27/2023-09/29/2023 - Admitted at [facility] with left sided weakness, slurred speech [...] a dry mouth and has been trying xyjs-dmo-iksjnth products for the dry mouth. He had [...] of constipation which was eventually resolved with kkww-mac-djqgvzi medications. He has had no headaches. He [...] are going to a football game in [place] around [facility], will complete CT CAP and surgery [...] david counts. 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 Erin's miygtqc-ss-dvj is Arie Baker, who is my patient [...] after completed treatment for malignant neoplasm (Z79.52) alf (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 PAST MEDICAL [...] REMV CATARACT EXTRACAP,INSERT LENS S KIT CRAINIOTOMY [id number] SHOULDER ARTHROSCOPY/SURG TYMPANOSTOMY GENERAL ANESTHESIA XR CERVICAL [...] which included preparing to see the patient, fkpw-ai-ecxf patient care, completing clinical documentation, obtaining and/or reviewing separately obtained history, counseling and educating the patient/family/caregiver, ordering medications, tests,or procedures, independently interpreting results (not separately reported), communicating results to the patient/family/caregiver, and care coordination (not separately reported). Lo Hancock MD, CPE Hematology and Oncology Services Provided at: [place], [place] CC: Gerald Abdi [address] [address] Basia Vega MD 14[address] [facility] [address] Savanah Oreilly MD documented in this encounterOhio Valley Hospital09-05-2025 History of Present illness Narrative* Mildred Morillo [...] 09, 2024 TIME: 10:09 AM * Noemy Schumacher, RT(R) - 11/09/2024 10:00 AM EDT RADIOLOGY [...] 1007 PATIENT DISCHARGED TO: Ambulatory patient, left AL department area. Is this a therapy: No A Diagnostic radioactive procedure has taken place, with no further precautions necessary other than routine body substance precautions. More information regarding radiation safety can be found usingthis link: [email or web address] SIGNATURE: RT Stephanie(R) PATIENT NAME: Erin Pena DATE: November 09, 2024 TIME: 10:25 AM PAGER/CONTACT #: documented in this encounterOhio Valley Hospital09-05-2025 NoteFirelands Regional [facility] Center09-05-2025 NoteFirelands Regional Medical Center09-02-2025 Telephone encounter Note* Telephone Encounter - Noemy Chicas RN - 11/06/2024 4:46 PM EDT Pt's spouse notified of change and verbalizes understanding. Noemy Chicas RN [facility] Work Phone: 1(287) 311-137809-02-2025 Miscellaneous Notes* Telephone Encounter - Noemy Cihcas RN - 11/06/2024 4:46 PM EDT Pt's [...] 9:52 AM EDT Pt was admitted to [facility] last week w/ left sided pleuritic pain. [...] meantime? Noemy Chicas RN documented in this encounterOhio Valley Hospital09-02-2025 Telephone encounter Note * Telephone Encounter - Evangelina Linton - 11/06/2024 4:43 PM EDT I changed follow up closer to 11:45 am - should be finishing up around this time and BOBBY had the opening. Thanks! Evangelina Linton [facility]09-02-2025 Telephone encounter Note* Telephone Encounter - Noemy Chicas RN - 11/06/2024 2:07 PM EDT Pt's spouse notified and verbalizes understanding. PSS: Pt scheduled for PET at 10 and f/u w/ Bobby at 1 PM on Tuesday. Is there any way he can see Bobby closer to the time of his PET? Noemy Chicas RN [facility]09-02-2025 Telephone encounter Note* Telephone Encounter - Noemy Chicas RN - 11/06/2024 2:01 PM EDT Call placed to pt's spouse, Mandy. No answer. Message left requesting call back. Noemy Chicas RN [facility]09-02-2025 Telephone encounter Note* Telephone Encounter - Lo Hancock MD - 11/06/2024 1:45 PM EDT Repeat medrol dose zach - not sure what the pain is from... [facility]09-02-2025 Telephone encounter Note* Telephone Encounter - Noemy Chicas RN - 11/06/2024 9:52 AM EDT Pt was admitted to [facility] last week w/ left sided pleuritic pain. [...] would you advise in the meantime? Noemy Chicas, RN [facility]08-26-2025 Telephone encounter Note* Telephone Encounter - Noemy Chicas RN - 10/30/2024 3:34 PM EDT DISCHARGE CALL BACK Today's date: October 30, 2024 Notified of Pt discharge by: Call placed to hospital for follow up. Patient discharged on 10/29/[address] to Home Primary Cancer Diagnosis: Lung Cancer Admitting Diagnosis: Intractable left sided chest pain/rib pain, Pericardial Effusion. Discharge Summary/SBAR reviewed: Yes Handoff Discussed with Transitional Health Coordinator: N/A Psychosocial Risk Factors: None If patient [...] PET. Patient reminded of follow-up appointment with [facility] provider, Dr Hancock on 11/09/24: Yes Discussed - Pt notes his pain has improved. Gets slightly short of breath w/ activity. Overall feeling better than he did prior to admission. PATIENT EDUCATION / REINFORCEMENT Patient verbalizes understanding of when to seek Medical Attention? YES Patient verbalizes understanding of after hours and weekend phone number? YES Noemy Chicas RN [facility] Work Phone: 1(523) 774-813708-26-2025 Miscellaneous Notes* Telephone Encounter - Noemy Chicas RN - 10/30/2024 3:34 PM EDT DISCHARGE CALL BACK Today's date: October 30, 2024 Notified of Pt discharge by: Call placed to hospital for follow up. Patient discharged on 10/29/24 from [facility] 3T to Home Primary Cancer Diagnosis: Lung Cancer Admitting Diagnosis: Intractable left sided chest pain/rib pain, Pericardial Effusion. Discharge Summary/SBAR reviewed: Yes Handoff Discussed with Transitional Health Coordinator: N/A Psychosocial Risk Factors: None If patient [...] PET. Patient reminded of follow-up appointment with [facility] provider, Dr Hancock on 11/09/24: Yes Discussed - Pt notes his pain has improved. Gets slightly short of breath w/ activity. Overall feeling better than he did prior to admission. PATIENT EDUCATION / REINFORCEMENT Patient verbalizes understanding of when to seek Medical Attention? YES Patient verbalizes understanding of after hours and weekend phone number? YES Noemy Chicas RN documented in this encounterOhio Valley Hospital08-26-2025 Telephone encounter Note * Telephone Encounter - Agata Briceño - 10/30/2024 2:42 PM EDT D/C summary scanned. [facility]08-26-2025 Miscellaneous Notes* Telephone Encounter - Agata Briceño [...] b PSS * Telephone Encounter - Noemy Chicas [...] spouse. Reports the pt was admitted to [facility] over the weekend d/t ongoing pain in his lung. Call placed to hospital for update. No answer at the desk. Unable to leave a message. Taryn: Please scan records. Thanks! Noemy Chicas RN documented in this encounterOhio Valley Hospital08-26-2025 Telephone encounter Note * Telephone Encounter - Noemy Chicas RN - 10/30/2024 1:39 PM EDT Update: Spoke w/ Shahzad Laguerre RN. Reports the pt was discharged home yesterday. Taryn: Please scan pt's summary. Thanks! Noemy Chicas RN [facility] Work Phone: [phone] Telephone encounter Note* Telephone Encounter - Ambar Lux - 10/29/2024 10:24 AM EDT Unfortunately we do not have anything sooner for PET scans. Will keep a eye out for a cancellation.I called and spoke to Sergio and his Anika and let them know if anything opens up sooner I will give them a call. Ambar roche PSS [facility]08-25-2025 Telephone encounter Note* Telephone Encounter - Noemy [...] spouse either way. Thanks! Noemy Chicas RN [facility]08-25-2025 Telephone encounter Note* Telephone Encounter - Agata Briceño - 10/29/2024 9:14 AM EDT Records scanned. [facility]08-25-2025 Telephone encounter Note* Telephone Encounter - Noemy Chicas RN - 10/29/2024 7:59 AM EDT Voicemail message received from pt's spouse. Reports the pt was admitted to [facility] over the weekend d/t ongoing pain in his lung. Call placed to hospital for update. No answer at the desk. Unable to leave a message. Taryn: Please scan records. Thanks! Noemy Chicas RN [facility]08-23-2025 [place] [address] Hospitalist H&P Signed Patient: Erin Pena MR#: [id number] : 1955 Acct:[id number] Age/Sex: 68 / M Adm Date: 5 Loc: Room: [address] [place] [address] Type: ADM IN Attending Dr: Clarence Stevens DO Copies to: MD Clarence Perez DO~ HPI DATE OF EXAMINATION: 10/27/24 CHIEF COMPLAINT: [...] mg will be continued for diabetes mellitus [facility] Medical History Lung cancer History of gastric [...] List clean-up per request of Phys. [facility]HR [facility] of cervical spinal surgery Posterior [...] PO DAILY hypothyroidism 11/02/19 [History Confirmed 10/27/24] fpodutxp-ug-pcufz 300 mcg-K 60 mcg-lycop 600 mcg-lutein 300 mcg tablet (Men 50 Plus Multivitamin) 1tab PO DAILY supplement 11/02/19 [History Confirmed 10/27/24] cyclobenzaprine 10 mg tablet 10 mg PO TID PRN back spasms #50 tabs 01/15/21 [Rx Confirmed 10/27/24] amlodipine 10 mg tablet [...] % (Auto) 18.3 % (.) 10/27/24 14:17 Lake % (Auto) 6.8 % (.) 10/27/24 14:17 Eos % (Auto) 11.7 % (.) 10/27/24 14:17 Baso % (Auto) 0.5 % (.) 10/27/24 14:17 Nucleat RBC Rel Count 0.2 /100 WBC (0-0.5) 10/27/24 14:17 Neut # (Auto) 6.1 x10E3/uL (1.8-7.7) 10/27/24 14:17 Lymph # (Auto) 1.8 x10E3/uL (1.00-4.8) 10/27/24 14:17 Lake # (Auto) 0.7 x10E3/uL (0.0-0.8) 10/27/24 14:17 [...] 3 Documented By: Clarence Stevens DO 10/27/24 37 Signed By: 10/27/242050 [facility]08-23-2025 Evaluation note* Diagnosis Onset Date Resolution Status Admit Date Atypical chest pain acuteAugust 2024 6:48pmPleural effusionacuteAugust 2024 6:48pm [facility] Work Phone: 1(137) 531-124508-23-2025 Evaluation note* Diagnosis Onset Date Resolution Status Admit Date Atypical chest pain acuteAugust 2024 6:48pmPleural effusionacuteAugust 2024 6:48pm Squamous cell lung canceracuteAugust 2024 6:48pm [facility] Work Phone: 1([phone]) 981-740408-23-2025 Evaluation note* Diagnosis Onset Date Resolution Status Admit Date Pleural effusion inactiveAugust 2024 6:48pmSquamous cell lung cancerinactiveAugust 2024 6:48pmAtypical chest paindeletedAugust 2024 6:48pmPost herpetic neuralgiaacuteSeptember 2024 1:30pm [facility] Work Phone: [phone]) 236-143008-23-2025 [facility] Main [address] [address] [address] Scan Report Signed Patient: Erin Pena MR#: [id number] : 1955 Acct:[id number] Age/Sex: 68 / M ADM Date: 5 Loc: ER Room: Type: [facility] ER Attending Dr: Copies to: Wendy [...] Chaudhary M.D. 10/27/2024 4:59 PM Dictation Location: [place] [address] Transcribed By: [facility] 10/27/241658 Dictated By: Mihai Chaudhary II, MD 10/27/241652 Signed By: 10/27/241658 [facility] Work Phone: [phone]) [phone] NoteIMPRESSION: Newly appearing/progression of left mid and [...] any questions regarding this interpretation, please call [phone]. If you are unable to reach us at the number above, please feel free to contact [facility] at [phone].DIVISION OF [id number] History of Present illness Narrative* Noemy Schumacher [...] PATIENT PRESENTS WITH AN IMPLANTABLE OR ATTACHED COOK FISH EGGS: No RADIOLOGY DEPARTMENT: General X-ray: Exam(s) Completed: Chest X-Ray PERIPHERAL IV DATA: Not applicable SIGNED BY: RT Stephanie(R) October 26, 2024 8:54 AM documented in this encounterOhio Valley Hospital08-22-2025 NoteFirelands Regional Medical Center08-21-2025 Telephone encounter Note* Telephone Encounter - Michelle Mejia APRN.MAXIMILIANO - 10/25/2024 3:14 PM EDT Signed. Michelle Mejia APRN.PADDING MACHINE OPERATOR [facility] Work Phone: [phone] Miscellaneous Notes* Telephone Encounter - Michelle Mejia APRN.CNP - 10/25/2024 3:14 PM EDT Signed. Michelle Mejia APRN.PADDING MACHINE OPERATOR * Telephone Encounter - Noemy Chicas RN [...] meantime? Noemy Chicas RN documented in this encounterOhio Valley Hospital08-21-2025 Telephone encounter Note * Telephone Encounter - Noemy Chicas RN - 10/25/2024 2:11 PM EDT Discussed w/ Dr Hancock who would like pt to come in for a CXR. Pt's spouse notified and verbalizes understanding. Xray scheduled for tomorrow @ 8 AM. Bobby/CRIS: Order for CXR pended. Noemy Chicas RN [facility]08-21-2025 Telephone encounter Note* Telephone Encounter - Noemy Chicas RN - 10/25/2024 1:08 PM EDT Pt c/o worsening pain in his left lung. Notes he's always had burning there since radiation, but ithas worsened over the last 4 days. Describes as a constant burn and ache. Rates his pain /10. Denies cough. Notes he feels slightly short of breath. Pt has h/o radiation-induced pulmonary fibrosis. Due for PET on 11/09. What would you advise in the meantime? Noemy Chicas RN [facility]08-13-2025 History of Present illness Narrative* Dick Miranda [...] Symptoms resolved and monitor. documented in this encounterCrittenton Behavioral [id number] History of Present illness Narrative* Neha Garcia MD - 09/26/2024 1:45 PM EDT Erin Bridges Enrike Date of visit: 09/26/2024 Date of : 1955 Age: 68 y.o. 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[facility]) Hyporeflexia Other affections of shoulder region, not elsewhere classified Hx of fusion of cervical spine Bilateral carotid artery stenosis Claudication Occlusive disease, arterial Left-sided weakness Chronic obstructive pulmonary disease (CMS-HCC) Malignant neoplasm of upper lobe of left lung ([facility]) Mixed hyperlipidemia Benign prostatic hyperplasia with lower urinary tract symptoms Chemotherapy-induced neuropathy Hypothyroidism, postradioiodine therapy PAD (peripheral artery disease) 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 ([facility]) Allergies Allergen Reactions Sulfa (Sulfonamide Antibiotics) Current [...] BELPHAROPTOSIS REPAIR BRAIN SURGERY 2014 CARDIAC CATHETERIZATION 2008 CATARACT EXTRACTION 2014 COLONOSCOPY 2016 FINGER AMPUTATION Left 1981 middle [...] Resource Strain: Low Risk (04/19/2023) [facility] Overall Financial Resource Strain (CARDIA) Difficulty of Paying Living Expenses: Not hard at all Food Insecurity: No Food Insecurity (09/26/2024) Hunger Screening Food Insecurity - Worry: Never True Food Insecurity - Inability: Never True Transportation Needs: No Transportation Needs (09/27/2023) PRAPARE - Transportation Lack of Transportation (Medical): No Lack of Transportation (Non-Medical): No Physical Activity: Insufficiently Active (04/19/2023) Received from [facility] Exercise Vital Sign Days of Exercise per Week: 3 days Minutes of Exercise per Session: 30 min Stress: Patient Declined (04/19/2023) Received from [facility] [place] [employer] - Occupational Stress Questionnaire Feeling of Stress : Patient declined Social Connections: Unknown (04/19/2023) Received from [facility] Social Connection and Isolation Panel [NHANES] Frequency of Communication with Friends and Family: Three times a week Frequency of Social Gatherings with Friends and Family: Once a week Attends Temple Services: More than 4 times per year [...] Referring Physician: Dick Miranda MD [address] [place] [address] documented in this encounterCleveland Clinic [facility]07-22-2025 Miscellaneous Notes* Telephone Encounter - Faith Lane CMA - 09/25/2024 2:57 PM EDT Called patient to remind them to bring their most current copy of their medication list with them to their appt. Patient verbalizes understanding. documented in this encounterCleveland Clinic [facility]07-22-2025 Telephone encounter Note* Telephone Encounter - Faith Lane CMA - 09/25/2024 2:57 PM EDT Called patient to remind them to bring their most current copy of their medication list with them to their appt. Patient verbalizes understanding. [facility]07-17-2025 Telephone encounter Note* Telephone Encounter - Noemy Chicas RN - 09/20/2024 8:12 AM EDT Results left on pt's personalized voicemail. Advised he call back w/ any questions. Noemy Chicas RN [facility] Work Phone: 1([phone]) 443-901807-17-2025 Miscellaneous Notes* Telephone Encounter - Noemy Chicas RN - 09/20/2024 8:12 AM EDT Results left on pt's personalized voicemail. Advised he call back w/ any questions. Noemy Chicas RN documented in this encounterOhio Valley Hospital07-16-2025 Telephone encounter Note * Telephone Encounter - Bella Anand - 09/19/2024 12:12 PM EDT Patient has been scheduled for Labs tomorrow 09/20 @ 9:00. Bella Mathias [facility]07-16-2025 Miscellaneous Notes* Telephone Encounter - Bella Anand - 09/19/2024 12:12 PM EDT Patient has been scheduled for Labs tomorrow 09/20 @ 9:00. Bella Mathias * Telephone Encounter - Noemy Chicas RN [...] advise? Noemy Chicas RN documented in this encounterOhio Valley Hospital07-16-2025 Telephone encounter Note * Telephone Encounter - Noemy Chicas RN - 09/19/2024 12:08 PM EDT Pt notified. Clerical: Pt will be here tomorrow at 9 AM for labs. Please add him to the schedule. Thanks! Noemy Chicas RN [facility] Work Phone: [phone] Telephone encounter Note* Telephone Encounter - Arley King PA-C - 09/19/2024 12:03 PM EDT Ok to start with labs and go from there. Labs placed. Arley King PA-C [facility]07-16-2025 Telephone encounter Note* Telephone Encounter - Noemy [...] w/ clear sputum. Nivolumab was discontinued in August/t headaches. Last treatment was on 07/20. Bobby/CRIS: Pt asks if he could come in and have his labs checked. What would you advise? Noemy Chicas RN [place] [address]-10-2025 History of Present illness Narrative* Verónica Tim, PT - 09/13/2024 10:30 AM EDT Images [...] Precautions: Lung Cancer Subjective: right hip Pain: 5/10 Objective: PT Evaluation (09/13/2024) HIP AROM: 90 [...] to be instructed in home exercise program. [facility] Goals: To be met in 10 weeks [...] Please sign below. Date: documented in this encounterCrittenton Behavioral [id number] NoteFirelands Regional Medical Center06-27-2025 History of Present illness Narrative* Jack Hoang MD - 08/31/2024 3:07 PM EDT Radiation Oncology - Follow Up Note PATIENT NAME: Erin Pena PATIENT DIAGNOSIS/PATIENT IDENTIFICATION: Mr. Pena is a 68-year-old gentleman recently diagnosed with anearly stage, [id number], non-small cell lung cancer (SCC) arising in [...] 68-year-old gentleman recently diagnosed with an early stage,aP3D1V9, non-small cell lung cancer (SCC) arising in [...] which included preparing to see the patient, mwsc-hl-cvtb patient care, and counseling and educating the patient/family/caregiver. This document has been created with the use of voice recognition technology. It may contain inaccuracies, misspellings, inaccurate syntax or inappropriate word context that are a result of the inadequacies/shortcomings of said technology/software. documented in this encounterOhio Valley Hospital06-12-2025 Instructions* Patient Instructions* Lo Hancock MD - 08/16/2024 12:14 PM EDT D/C single agent nivolumab RTC in 12 weeks PET/CT and labs same day prior to seeing me. Continue aspirin and Plavix as prescribed by neurology. Follow-up with neurologist as scheduled documented in this encounterOhio Valley Hospital06-12-2025 History of Present illness Narrative* Lo Hancock MD - 08/16/2024 11:45 AM EDT Images from the original note were not included. NAME: Erin Pena [facility] NO[facility] [id number] DATE OF SERVICE: August 16, 2024 (Khadijah) [...] NOTE This is a virtual visit using [employer] Zoom Video Visit. It required patient- provider interaction for the medical decision making as documented below. I have communicated my name and active licensure. The patient's identity and physical location wereverified at the time of this visit. Either the patient or their legal assisted sales representative has been informed of the risks [...] Lung, left lower lobe[facility] squamous cell [facility] Comment: In [...] internal carotid artery. 09/27/2023-09/29/2023 - Admitted at [facility] with left sided weakness, slurred speech [...] a dry mouth and has been trying snvi-mgo-tgajohg products for the dry mouth. He had [...] of constipation which was eventually resolved with ksqm-zui-cgzkrpe medications. He has had no headaches. He [...] following radiation. Updated Visit, February 24, 2024: Segrio returns with Mandy for a follow up. 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 Erin's rmychtb-yk-nkl is Arie Baker, who is my patient [...] REMV CATARACT EXTRACAP,INSERT LENS S KIT CRAINIOTOMY [id number] SHOULDER ARTHROSCOPY/SURG TYMPANOSTOMY GENERAL ANESTHESIA XR CERVICAL [...] which included preparing to see the patient, gxxw-cd-mroe patient care, completing clinical documentation, obtaining and/or reviewing separately obtained history, counseling and educating the patient/family/caregiver, ordering medications, tests,or procedures, independently interpreting results (not separately reported), communicating results to the patient/family/caregiver, and care coordination (not separately reported). Lo Hancock MD, CPE Hematology and Oncology Services Provided at: [place], [place] CC: [facility] [address] [address] Basia Vega MD [address] [facility] [address] Savanah Oreilly MD documented in this encounterOhio Valley Hospital06-12-2025 NoteFirelands Regional Medical Center06-06-2025 Telephone encounter Note* Telephone Encounter - Guillermina Rodriguez RN - 08/10/2024 2:35 PM EDT Discussed recommendation from Dr Waggoner. Pt verbalized understanding. Pt agreeable to phone call on 08/16. Guillermina Rodriguez RN [facility] Work Phone: [phone]) [phone] Miscellaneous Notes* Telephone Encounter - Guillermina Rodriguez [...] calls stating he had an MRI at [facility] and would like to know the results. Please review and advise. Pt states he's been having headaches for some time now and has been associating it with the immunotherapy, and he'd like to meet with Dr Waggoner or talk with him over the phone before his next treatmentregarding the results and plan of care. Please advise Guillermina Rodriguez RN documented in this encounterOhio Valley Hospital06-06-2025 Telephone encounter Note * Telephone Encounter - Delilah Cote - 08/10/2024 1:43 PM EDT Patient is scheduled for a phone visit at 11:45 am on 08/16/2024 for OBBBY to go over results. If you need me to call him I can.. Delilah Cote PSS [facility]06-06-2025 Telephone encounter Note* Telephone Encounter - Lo Hancock MD - 08/10/2024 12:29 PM EDT MRI doesn't really explain headaches unless they are vascular And his PET/CT looked ok - not sure what could be causing the headaches. 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 I can see him next week [facility]06-06-2025 Telephone encounter Note* Telephone Encounter - Guillermina Rodriguez RN - 08/10/2024 9:58 AM EDT Pt calls stating he had an MRI at [facility] and would like to know the results. Please review and advise. Pt states he's been having headaches for some time now and has been associating it with the immunotherapy, and he'd like to meet with Dr Waggoner or talk with him over the phone before his next treatmentregarding the results and plan of care. Please advise Guillermina Rodriguez RN [facility]06-03-2025 Telephone encounter Note* Telephone Encounter - Noemy Chicas RN - 08/07/2024 1:54 PM EDT Pt notified and verbalizes understanding. Denies any new or worsening cough or SOB. Noemy Chicas RN [facility] Work Phone: [phone]) [phone] Miscellaneous Notes* Telephone Encounter - Noemy Chicas [...] Thanks! Noemy Chicas RN documented in this encounterOhio Valley Hospital06-03-2025 Telephone encounter Note * Telephone Encounter - Lo Hancock MD - 08/07/2024 1:28 PM EDT Overall PET looks great - he does have some inflammatory changes in the lungs that show up on the PET. [facility]06-03-2025 Telephone encounter Note* Telephone Encounter - Noemy Chicas RN - 08/07/2024 12:23 PM EDT Pt requesting results of last week's PET. Please review and advise. Thanks! Noemy Chicas RN [facility]06-03-2025 Telephone encounter Note* Telephone Encounter - Ambar Lux - 08/07/2024 11:28 AM EDT [facility] returned my call and Sergio is scheduled 08/08/24 at 11:00 AM for his MRI Ambar B PSS [facility]06-03-2025 Miscellaneous Notes* Telephone Encounter - Ambar Lux [...] - 08/06/2024 9:36 AM EDT Spoke to [facility] imaging and they state they received approval this morning. They will reach out todayto get patient scheduled Ambar B PSS * Telephone Encounter - Brittni Morrell - 08/02/2024 9:08 AM EDT Order received at [facility], working on prior auth and will call patient. * Telephone Encounter - Brittni Morrell - 08/01/2024 3:20 PM EDT Faxed order to [facility] in [place] * Telephone Encounter - Noemy Chicas RN - 08/01/2024 2:43 PM EDT Pt notified and agrees to MRI. Clerical: Pt would like the MRI done at [facility] in [place]. Please schedule and call pt w/ the [...] 08/01/2024 9:46 AM EDT Patient went to [facility] ER. Labs and imaging pulled through care everywhere. ER note not available yet. * Telephone Encounter - Noemy Chicas RN - 07/31/2024 3:10 PM EDT Pt notified and verbalizes understanding. Recommended he go to [place] [facility], but pt would prefer to go to [facility] ER since it's closer to home. Report phoned to Ramu @ [facility] ER. Last office note, recent CT [...] persistent headache and fatigue. Rates each one 6-7/10. Notes only a slight improvement since he called last week. Headache is tolerable w/ Tylenol and Fairview. Pt denies dizziness or vision changes. It [...] advised? Noemy Chicas RN documented in this encounterOhio Valley Hospital06-[facility]-2025 Telephone encounter Note * Telephone Encounter - Yaya Luxha - 08/07/2024 10:35 AM EDT Called [facility] to follow up to see if MRI was scheduled. 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[facility]) Hyporeflexia Other affections of shoulder region, not elsewhere classified Hx of fusion of cervical spine Bilateral carotid artery stenosis Claudication Occlusive disease, arterial Left-sided weakness Chronic obstructive pulmonary disease ([facility]) Malignant neoplasm of upper lobe of left lung ([facility]) Mixed hyperlipidemia Benign prostatic hyperplasia with lower [...] TUBE PLACEMENT 2015 TYMPANOSTOMY TUBE PLACEMENT Left 2015 Physical Exam: Physical Exam Vitals and nursing [...] disease, arterial Atheroembolism of bilateral lower extremities ([facility]) Sergio was seen today for follow-up. Diagnoses and all orders for this visit: Internal carotid artery stenosis, bilateral Occlusive disease, arterial - Vas art doppler lwr bilat mult lev/PVR; Future Atheroembolism of bilateral lower extremities ([facility]) - Vas art doppler lwr bilat mult [...] lev/PVR; Future Atheroembolism of bilateral lower extremities ([facility]) - Vas art doppler lwr bilat mult [...] Karyn PEREZ Marc, MD [facility] Telephone encounter Note* Telephone Encounter - Ambar Lux - 08/06/2024 9:36 AM EDT Spoke to [facility] imaging and they state they received approval this morning. They will reach out todayto get patient scheduled Ambar Roche PSS [facility]05-30-2025 History of Present illness Narrative* Mildred Morillo [...] 03, 2024 TIME: 8:13 AM * Noemy Schumacher, RT(R) - 08/03/2024 8:00 AM EDT RADIOLOGY SERVICE PROGRESS NOTE SERVICE DATE: 08/03/2024 SERVICE TIME: 8:49 AM PATIENT IDENTITY VERIFICATION COMPLETED USING TWO (2) STANDARD IDENTIFIERS: Name and Date of confirmed by patient verbally POST EXAM PIV STATUS: Discontinued PROCEDURE TYPE: NM INJECT: PET/CT BODY SCAN. 9.9 mCi F18 FDG. Administered By: . No other medications given.. ADMINISTRATION TIME: 805 PATIENT DISCHARGED TO: Ambulatory patient, left AL department area. Is this a therapy: No A Diagnostic radioactive procedure has taken place, with no further precautions necessary other than routine body substance precautions. More information regarding radiation safety can be found usingthis link: [email or web address] SIGNATURE: RT Stephanie(R) PATIENT NAME: Erin Pena DATE: August 03, 2024 TIME: 8:49 AM PAGER/CONTACT #: documented in this encounterOhio Valley Hospital05-30-2025 [facility]05-30-2025 [facility]Firelands [facility]05-29-2025 Telephone encounter Note* Telephone Encounter - Brittni Morrell - 08/02/2024 9:08 AM EDT Order received at [facility], working on prior auth and will call patient. [facility]05-28-2025 Telephone encounter Note* Telephone Encounter - Brittni Morrell - 08/01/2024 3:20 PM EDT Faxed order to [facility] in [place] [facility]05-28-2025 Telephone encounter Note* Telephone Encounter - Noemy Chicas RN - 08/01/2024 2:43 PM EDT Pt notified and agrees to MRI. Clerical: Pt would like the MRI done at [facility] in [place]. Please schedule and call pt w/ the appointment. Thanks! Noemy Chicas RN [facility] Work Phone: [phone] Telephone encounter Note* Telephone Encounter - Arley King PA-C - 08/01/2024 2:26 PM EDT MRI of the brain would be needed to look at his pituitary gland to look for hypophysitis as well asadditional labs if this is immunotherapy related. Arley King PA-C [facility]05-28-2025 Telephone encounter Note* Telephone Encounter - Noemy [...] What would you advise? Noemy Chicas RN [facility]05-28-2025 Telephone encounter Note* Telephone Encounter - Agata Briceño - 08/01/2024 9:46 AM EDT Patient went to [facility] ER. Labs and imaging pulled through care everywhere. ER note not available yet. [facility]05-27-2025 Telephone encounter Note* Telephone Encounter - Noemy Chicas RN - 07/31/2024 3:10 PM EDT Pt notified and verbalizes understanding. Recommended he go to [place] ER, but pt would prefer to go to [facility] ER since it's closer to home. Report phoned to Ramu @ [facility] ER. Last office note, recent CT head, and med list faxed. Taryn: Please scan ER records when available. Thanks! Noemy Chicas RN [facility]05-27-2025 Telephone encounter Note* Telephone Encounter - Arley King PA-C - 07/31/2024 2:39 PM EDT My recommendation stands. Arley King PA-C [facility]05-27-2025 Telephone encounter Note* Telephone Encounter - Noemy Chicas RN - 07/31/2024 2:24 PM EDT Pt calls w/ c/o persistent headache and fatigue. Rates each one 6-09/13. Notes only a slight improvement since he called last week. Headache is tolerable w/ Tylenol and [place]. Pt denies dizziness or vision changes. It [...] what was previously advised? Noemy Chicas RN [facility]05-17-2025 Telephone encounter Note* Telephone Encounter - Michelle Mejia APRN.CNP - 07/21/2024 11:38 AM EDT Note signed. Thanks. Michelle Mejia APRN.PADDING MACHINE OPERATOR [facility]05-17-2025 Miscellaneous Notes* Telephone Encounter - Michelle Mejia APRN.MAXIMILIANO - 07/21/2024 11:38 AM EDT Note signed. Thanks. Michelle Mejia APRN.CNP * Telephone Encounter - Evangelina Linton - 07/20/2024 2:26 PM EDT Taryn/Eduard: Patient is already established with her and needs to be seen back. Can you send recent notes and follow up? Thanks! Appointment with Dr. Robyn Leon Skin lesion left ear Evangelina Linton documented in this encounterOhio Valley Hospital05-16-2025 Telephone encounter Note * Telephone Encounter - Evangelina Linton - 07/20/2024 2:26 PM EDT Taryn/Eduard: Patient is already established with her and needs to be seen back. Can you send recent notes and follow up? Thanks! Appointment with Dr. Robyn Leon Skin lesion left ear Evangelina Linton [facility]05-16-2025 History of Present illness Narrative* Mildred Morillo [...] Intact SIGNATURE: Mildred Morillo RN PATIENT NAME: Erni Pena DATE: July 20, 2024 TIME: 2:45 PM * Noemy Schumacher RT(R) - 07/20/2024 2:15 PM EDT Radiology [...] PATIENT PRESENTS WITH AN IMPLANTABLE OR ATTACHED COOK FISH EGGS: No RADIOLOGY DEPARTMENT: CT; Exam(s) Completed: Brain PERIPHERAL IV DATA: Site assessment: Clean,Dry and Intact, Site disposition Discontinued SIGNED BY: Noemy Schumacher RT(R) July 20, 2024 2:51 PM documented in this encounterOhio Valley Hospital05-16-2025 NoteFire[facility]05-16-2025 NoteFirelands [facility]05-16-2025 NoteFirelands [facility]05-16-2025 History of Present illness Narrative* Michelle Mejia APRN.PADDING MACHINE OPERATOR - 07/20/2024 1:49 PM EDT Images from the original note were not included. NAME: Erin Pena [facility] NO[facility] [id number] DATE OF SERVICE: July 20, 2024 (Lenny) [...] Lung, left lower lobe, [facility] - Invasive squamous cell carcinoma Comment: In [...] internal carotid artery. 09/27/2023-09/29/2023 - Admitted at [facility] with left sided weakness, slurred speech [...] a dry mouth and has been trying uibn-thl-idtsxkq products for the dry mouth. He had [...] of constipation which was eventually resolved with swca-iiq-sjvmugm medications. He has had no headaches. 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 Erin's aqlptwo-pg-dbp is Arie Olivia, who is my patient [...] disease (HCC) 10/20/2023 Hypertension Hypothyroidism Lung cancer ([facility]) 2023 refBy Trinidad Other affections of shoulder region, not elsewhere classified 03/14/2012 PAST SURGICAL HISTORY Procedure Laterality Date APPENDECTOMY BRAIN SURGERY HX COLONSCOPY SCREENING HIGH RISK FINGER AMPUTATION (SPECIFY DIGIT) HX HAND SURGERY HX HEMORROIDECTOMY INTERNAL LUNG BIOPSY Left NECK SURGERY HX PAST SURGICAL HISTORY OF Heart cath REMV CATARACT EXTRACAP,INSERT LENS S KIT CRAINIOTOMY [id number] SHOULDER ARTHROSCOPY/SURG TYMPANOSTOMY GENERAL ANESTHESIA XR CERVICAL [...] which included preparing to see the patient, vynd-vk-gdtl patient care, completing clinical documentation, obtaining and/or reviewing separately obtained history, performing a medically appropriate examination, counseling and educating the pat ient/family/caregiver, ordering medications, tests, or procedures, independently interpreting results (not separately reported), and communicating results to the patient/family/caregiver. Michelle Mejia APRN.MAXIMILIANO Hematology and Oncology Services Provided at: [place], [place] CC: Gerald Abdi [id number] [address] Basia Vega MD [address] [facility] [address] Savanah Oreilly MD documented in this encounterOhio Valley Hospital05-05-2025 Telephone encounter Note * Telephone Encounter - Noemy Chicas RN - 07/09/2024 11:27 AM EDT Patient phones requesting refills as follows: Last written on 05/18/[address] Hancock. Requested Prescriptions Pending Prescriptions Disp Refills methylphenidate (RITALIN) 10 mg tablet 60 tablet 0 Sig: Take 1 tablet by mouth two times a day for 30 days. Please review and advise. Noemy Chicas RN [facility]05-05-2025 Miscellaneous Notes* Telephone Encounter - Noemy Chicas RN - 07/09/2024 11:27 AM EDT Patient phones requesting refills as follows: Last written on 05/18/[address] Hancock. Requested Prescriptions Pending Prescriptions Disp Refills methylphenidate (RITALIN) 10 mg tablet 60 tablet 0 Sig: Take 1 tablet by mouth two times a day for 30 days. Please review and advise. Noemy Chicas RN documented in this encounterOhio Valley Hospital04-23-2025 NoteFirelands [facility] Center04-11-2025 NoteFirelands [facility] Center04-11-2025 History of Present illness Narrative* Jakc Hoang MD - 06/15/2024 11:51 PM EDT Radiation Oncology - Follow Up Note PATIENT NAME: Erin Pena PATIENT DIAGNOSIS/PATIENT IDENTIFICATION: Mr. Pena is a 68-year-old gentleman recently diagnosed with anearly stage, [id number], non-small cell lung cancer (SCC) arising in [...] inadequacies/shortcomings of said technology/software. documented in this encounterOhio Valley Hospital04-11-2025 Instructions* Patient Instructions* Joey Scott APRN.PADDING MACHINE OPERATOR - 06/15/2024 2:42 PM EDT Joey Scott CNP Department of Palliative and Supportive Care Palliative Care - Specialty services in symptom management and support For questions or prescription refills, call: [phone] Tuesday - Tuesday 9AM-5PM KRISTINA Alba, RN - Health Coordinator Please call 3-5 days in advance for medication refills Evenings, Weekends, Holidays: [phone] (ask for palliative medicine on-call provider) For appointments, cancellations or reschedule, call: [phone] documented in this encounterOhio Valley Hospital04-11-2025 NoteFirelands Regional Medical Center04-11-2025 History of Present illness Narrative* Michelle Mejia APRN.CNP - 06/15/2024 1:11 PM EDT Images from the original note were not included. NAME: Erin Pena [facility] NO[facility] [id number] DATE OF SERVICE: June 15, 2024 (Lenny) [...] Lung, left lower lobe, core biopsy: at [facility] - Invasive squamous cell carcinoma Comment: [...] internal carotid artery. 09/27/2023-09/29/2023 - Admitted at [facility] with left sided weakness, slurred speech - stroke workup negative 09/25/2023 - ER for bilateral leg weakness Updated Visit, June 15, 2024: Erin Pena returns for scheduled follow-up. He received cycle 1 nivolumab on 05/18/2024 and tolerated it well. He does not feel well the day after his treatment. He complains of a dry mouth and has been trying oxoo-lhc-bfatirb products for the dry mouth. He had [...] of constipation which was eventually resolved with tsri-wmt-gzymyxm medications. He has had no headaches. 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 Erin's ylkjdit-se-zlg is Arie Baker, who is my patient [...] REMV CATARACT EXTRACAP,INSERT LENS S KIT CRAINIOTOMY [id number] SHOULDER ARTHROSCOPY/SURG TYMPANOSTOMY GENERAL ANESTHESIA XR CERVICAL [...] which included preparing to see the patient, ratc-zr-wyfs patient care, completing clinical documentation, obtaining and/or reviewing separately obtained history, performing a medically appropriate examination, counseling and educating the pat ient/family/caregiver, ordering medications, tests, or procedures, independently interpreting results (not separately reported), and communicating results to the patient/family/caregiver. Michelle Mejia APRN.MAXIMILIANO Hematology and Oncology Services Provided at: [place], [place] CC: Gerald Abdi [address] [address] Basia Vega MD [address] [facility] [address] Savanah Oreilly MD documented in this encounterOhio Valley Hospital04-11-2025 NoteFirelands Regional Medical Center04-11-2025 History of Present illness Narrative* Joey Scott APRN.PADDING MACHINE OPERATOR - 06/15/2024 12:46 PM EDT PALLIATIVE MEDICINE PROGRESS NOTE SERVICE DATE: 06/15/2024 CHIEF COMPLAINT: Neoplasm Related Pain PERTINENT MEDICAL HISTORY: Erin Pena is a 68 year old male with history of Squamous cell lung ca Left upper lobe, 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 Comleted neoadjuvant chemo / IO late December 2023. Unfortunately does not appear to be a good candidate for surgery. Now on maintenance therapy Subjective I met with Sergio and his in clinic, he is alert oriented x 3 no acute distress. Long-term chronic pain patient managed by his PCP, continues Lyrica and Fairview, pain has increased some since starting chemotherapy [...] Ritalin sparingly, provided by oncology Modified ESAS ([place] Symptom Assessment Scale) Information Provided By: Patient [...] ear normal. Nose: Nose normal. Mouth/Throat: Lips: [place]. Mouth: Mucous membranes are moist. 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) Malignant neoplasm of upper lobe of left lung (HCC) (D49.9, G13.0) Paraneoplastic neuropathy (HCC) - Increase Gabapentin to 200 mg po at bedtime - Continue working with current pain provider for Fairview - Can also use Tylenol for mild pain but be aware of Tylenol amount of Fairview to keep 24-hour dosageunder 3000 mg (R11.0) Nausea - Can also use Tylenol for mild pain but be aware of Tylenol amount of Fairview to keep 24-hour dosageunder 3000 mg (G47.01) [...] via a virtual visit Joey Scott NP, ROSA.MAXIMILIANO June 15, 2024 12:47 PM I spent a total of 35 minutes on the date of the service which included preparing to see the patient, dhsi-hh-xgbh patient care, completing clinical documentation, obtaining and/or reviewing separately obtained history, performing a medically appropriate examination, counseling and educating the pat ient/family/caregiver, ordering medications, tests, or procedures, communicating with other HCPs (not separately reported), independently interpreting results (not separately reported), communicatingresults to the patient/family/caregiver, and care coordination (not separately reported). This note may have been partially generated using the [place] acquired by [employer] voice recognition system. While every effort was made to correct voice recognition errors, kindly be aware that some errors may occasionally occur. documented in this encounterOhio Valley Hospital04-09-2025 NoteFirelands Regional Medical Center04-09-2025 History of Present illness Narrative* Rhea Goddard, JOSE J - 06/13/2024 7:32 AM EDT Oncology Nutrition Therapy Initial Assessment I have communicated my name and active licensure. The patient's identity and physical location wereverified at the time of this visit. Either the patient or their legal assisted sales representative has been informed of the risks [...] Dosing Weight: 82 kg Estimated kilocalorie needs: 1598-6815 kilocalories determined by 25-30 kcal/kg Estimated protein needs: 82-98 grams determined by 1.0-1.2 g/kg Dosing weight Estimated fluid needs: ~2893-7707 milliliters based on 1 mL per kcal [...] 30 minutes Signed by: Rhea Goddard RD, CHECK SCALER LD documented in this encounterOhio Valley Hospital03-26-2025 Telephone encounter Note * Telephone Encounter - Brittni Morrell - 05/30/2024 10:32 AM EDT Spoke to jose Hill to change 0404 to 06/15. [facility]03-26-2025 Miscellaneous Notes* Telephone Encounter - Brittni Morrell [...] appt with Michelle. Thank you Lenora Sotelo, EWELINA documented in this encounterOhio Valley Hospital03-26-2025 Telephone encounter Note * Telephone Encounter - Lenora Sotelo RN - 05/30/2024 9:31 AM EDT Please contact pt and reschedule his follow up from 06/08 to 06/15 to be the same day as med onc. Thisappt should be after his appt with Michelle. Thank you Lenora Sotelo, EWELINA [facility]03-17-2025 Telephone encounter Note* Telephone Encounter - Evangelina Linton - 05/21/2024 9:31 AM EDT After looking at appts, patient is scheduled on 06/06 following Sharona Bundridge appt. Thanks! Evangelina Linton [facility]03-17-2025 Miscellaneous Notes* Telephone Encounter - Evangelina Linton - 05/21/2024 9:31 AM EDT After looking at appts, patient is scheduled on 06/06 following Sharona Bundridge appt. Thanks! Evangelina Linton * Telephone Encounter - Rhea Goddard RD - 05/21/2024 7:24 AM EDT PSS- please contact patient and schedule appointment with me. Thanks, Rhea Goddard RD, CHECK SCALER, LD * Telephone Encounter - Lo Hancock MD - 05/18/2024 5:31 PM EDT Nutrition consult entered. * Telephone Encounter - Shilpi Centeno RN - 05/18/2024 1:50 PM EDT Pt is in tx room for D1C1 Opdivo. Pt reports he is borderline pre diabetic and also has had low potassium frequently. Pt would like to meet with tools administrator. Thank you, Shilpi Centeno, EWELINA documented in this encounterOhio Valley Hospital03-17-2025 Telephone encounter Note * Telephone Encounter - Rhea Goddard RD - 05/21/2024 7:24 AM EDT PSS- please contact patient and schedule appointment with me. Thanks, Rhea Goddard RD, CHECK SCALER, LD [facility] Work Phone: [phone] Telephone encounter Note* Telephone Encounter - Lo Hancock MD - 05/18/2024 5:31 PM EDT Nutrition consult entered. [facility]03-14-2025 NoteFirelands Regional Medical Center03-14-2025 History of Present illness Narrative* Soumya Velazquez RN - 05/18/2024 3:03 PM EDT Patient education reinforced, printed literature given to him per he and his 's request. 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 Pt reports he is borderline pre diabetic and also has had low potassium frequently. Pt would like to meet with tools administrator. Thank you, Shilpi Centeno RN [facility]03-14-2025 Instructions* Patient Instructions* Nieves Smith - 05/18/2024 1:28 PM EDT Cycle 1 single agent nivolumab today RTC in 4 weeks for C2 Labs same day Continue Ritalin 10mg BID, as needed documented in this encounterOhio Valley Hospital03-14-2025 History of Present illness Narrative* Lo Hancock MD - 05/18/2024 1:00 PM EDT Images from the original note were not included. NAME: Erin Pena [facility] NO[facility] [id number] DATE OF SERVICE: May 18, 2024 (Khadijah) Some elements in this clinic note that are critical to medical decision making have been carefully reviewed and included from a prior clinic note dated: April 11, 2024 (Khadijah) Referring Provider: Gerald Abdi MD [...] Lung, left lower lobe, core biopsy: at [facility] - Invasive squamous cell carcinoma Comment: [...] internal carotid artery. 09/27/2023-09/29/2023 - Admitted at [facility] with left sided weakness, slurred speech [...] are going to a football game in [place] around [facility], will complete CT CAP and surgery [...] counts. 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 Erin's xulfsis-kn-xqj is Arie Baker, who is my patient [...] REMV CATARACT EXTRACAP,INSERT LENS S KIT CRAINIOTOMY [id number] SHOULDER ARTHROSCOPY/SURG TYMPANOSTOMY GENERAL ANESTHESIA XR CERVICAL [...] which included preparing to see the patient, yvma-ah-jsbb patient care, completing clinical documentation, obtaining and/or reviewing separately obtained history, performing a medically appropriate examination, counseling and educating the pat ient/family/caregiver, ordering medications, tests, or procedures, communicating with other HCPs (not separately reported), independently interpreting results (not separately reported), communicatingresults to the patient/family/caregiver, and care coordination (not separately reported). Lo Hancock MD, CPE Hematology and Oncology Services Provided at: [place], [place] Scribe Attestation: This note was scribed [...] my direction. CC: Gerald Abdi [address] [address] Basia Vega MD [address] [facility] [address] Savanah Oreilly MD documented in this encounterOhio Valley Hospital03-14-2025 NoteFirelands Regional Medical Center03-12-2025 NoteHNO ID: [id number] Author: ?, ?, ? Service: ? Author Type: ? Type: Progress Notes Filed: 05/16/2024 16:28 Note Text: opened in errorFirelands Regional Medical Center03-07-2025 History of Present illness Narrative* Jack Hoang MD - 05/11/2024 12:00 AM EST [facility] Radiation Oncology Department RADIATION ONCOLOGY - COMPLETION NOTE PATIENT: ERIN PENA: 1955 DATES OF TREATMENT: 05/02/24-05/09/24 DIAGNOSIS: Mr. Pena is a 68-year-old gentleman recently diagnosed with an early stage, [id number], non-small cell lung cancer (SCC) arising in [...] weeks. Staff Physician Jack Hoang M.D. / KG 54:17 AM Electronically Signed cc: Lo Hancock MD ([facility]) Dick Miranda MD [address] [facility] [address] [address] documented in this encounterOhio Valley Hospital03-07-2025 NoteFirelands Regional Medical Center03-05-2025 NoteFirelands Regional Medical Center03-05-2025 History of Present illness Narrative* Mihai Woody LMT - 05/09/2024 4:31 PM EST Patient Name: Erin Pena : 1955 Referred For: chair massage Diagnosis: muscle soreness Chief Complaint: Pain Anxiety (pre): 5 Pain (pre): 5 Stress Level (pre): 5 Therapy Provided: Massage Therapy Area(s) Treated: back Anxiety (post): 3 Pain (post): 3 Stress Level (post): 3 Visit Outcome: Better Comments: [facility] Treatment Plan: [facility] Care Team contacted: N/A Signature: Mihai Woody LMT Date: May 09, 2024 Time: 4:31 PM documented in this encounterOhio Valley Hospital02-27-2025 [facility]02-27-2025 History of Present illness Narrative* Mihai Woody LMT - 05/03/2024 4:10 PM EST Patient Name: Erin Pena : 1955 Referred For: chair massage Diagnosis: muscle soreness Chief Complaint: Pain Anxiety (pre): 5 Pain (pre): 5 Stress Level (pre): 5 Therapy Provided: Massage Therapy Area(s) Treated: lumbar, cervical focus Anxiety (post): 4 Pain (post): 4 Stress Level (post): 4 Visit Outcome: Better Comments: [facility] Treatment Plan: [facility] Care Team contacted: N/A Signature: Mihai Woody LMT Date: May 03, 2024 Time: 4:10 PM documented in this encounterOhio Valley Hospital02-26-2025 [facility]02-26-2025 Telephone encounter Note* Telephone Encounter - Kalee Daniel - 05/02/2024 1:22 PM EST Patient has been rescheduled for Follow up with Dr Bobby machado and Jed mckenna on 05-18-24. Will let thepatient know when he is here on Tuesday for XRT. [facility]02-26-2025 Miscellaneous Notes* Telephone Encounter - Kalee Daniel [...] you Lenora Sotelo RN documented in this encounterOhio Valley Hospital02-26-2025 Telephone encounter Note * Telephone Encounter - Lenora Sotelo RN - 05/02/2024 11:08 AM EST Pt starts XRT Today and will finish 05/11. Per Dr Hoang, please hold immunotherapy until about a weekafter this is complete. Pt is currently scheduled for infusion on 05/10. Thank you Lenora Sotelo, RN [facility]02-17-2025 History of Present illness Narrative* Robert King [...] TO DISCUSS ANOTHER INJECTION XRAY 07/26/23 IN [facility] CT PELVIS 07/31/23 @[facility] MRI (R) HIP / L-SPINE 08/09/23 IN [facility] CORTISONE INJ 07/19/23, 07/26/23, 09/27/23, 03/14/24 PREDNISONE [...] DISLOCATION. PRIOR TX BY DR TORRES AT [facility] IN 2013. MOST PAINFUL WHEN ARMS ARE OVERHEAD. + WAKE AT HS. ROM LIMITED AND PAINFUL. HE IS STARTING RADIATION ON 04/24 FOR LUNG CA AND WILL NEED TO HAVE BOTH ARMS OVERHEAD-HE IS CONCERNED HE WILL NOT BE ABLE TO DUE TO PAIN/ROM ALLERGIES: Allergies Allergen Reactions Spiriva Respimat [Tiotropium [place] Monohydrate] Shortness of breath Pt reported having [...] (HYDRODIURIL) 50 mg, Oral, Every morning HYDROcodone-acetaminophen ([place]view) 7.5-325 MG tablet 1 tablet, Oral, 4 times daily PRN Ketoconazole (Nizoral) 1 % shampoo 1 Application, Apply externally, 2 times weekly Krill Oil (Dayton-3) 500 MG capsule Take by mouth. losartan [...] Tobacco Use: Medium Risk (04/18/2024) Received from [facility] Patient History Smoking Tobacco Use: Former Smokeless [...] develop for requiring urgent evaluation. Robert King CANDLES POURER-PADDING MACHINE OPERATOR documented in this encounterJohn Ville [id number] History of Present illness Narrative* Dick Miranda MD - 04/18/2024 10:44 AM ESTAssociated Problem(s): Chronic obstructive pulmonary disease ([facility]/HCC) Symptoms stable and use albuterol PRN. * Dick Miranda MD - 04/18/2024 10:44 AM ESTAssociated Problem(s): 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 ([facility]/HCC) Follow with specialists. * Dick Miranda MD [...] Advised not to smoke. documented in this encounterCrittenton Behavioral [id number] NoteFirelands Regional Medical Center02-05-2025 History of Present illness Narrative* Jack Hoang MD - 04/11/2024 11:59 PM EST Radiation Oncology - Follow Up Note PATIENT NAME: Erin Pena PATIENT DIAGNOSIS/PATIENT IDENTIFICATION: Mr. Pena is a 68-year-old gentleman recently diagnosed with anearly stage, [id number], non-small cell lung cancer (SCC) arising in [...] which included preparing to see the patient, [id number] patient care, and counseling and educating the patient/family/caregiver. This document has been created with the use of voice recognition technology. It may contain inaccuracies, misspellings, inaccurate syntax or inappropriate word context that are a result of the inadequacies/shortcomings of said technology/software. documented in this encounterOhio Valley Hospital02-05-2025 NoteFirelands Regional Medical Center02-05-2025 History of Present illness Narrative* Olesya Braun RN - 04/11/2024 3:25 PM EST Radiation Therapy - Patient Education Note PATIENT NAME: Erin Pena PATIENT April 11, 2024 [facility] FACILITY/LOCATION: [facility] READINESS TO LEARN Cognitive [...] need for social work, van service, and tools administrator. Was PED reviewed? No Patient has an Onbody or Implanted device: No Signed by: Olesya Braun RN documented in this encounterOhio Valley Hospital02-05-2025 NoteFirelands Regional Medical Center02-05-2025 History of Present illness Narrative* Steffany Damian LSW - 04/11/2024 2:56 PM EST SOCIAL WORK FOLLOW UP NOTE: [facility] Date of service:04/11/24 Erin Pena is being seen for a follow up social work visit. Today's visit includes: spouse and patient TOPICS ADDRESSED: community resources and [place] [employer] forms PLAN: Assist with financial support applications, Continue follow up as needed , and Referral to community resource Assigned SW listed in Care Team tab: Yes Message received that the Patient wanted to know if this SW had [email or web address] Fund forms completed. SW had not received such paperwork. SW offered to complete the necessary paperwork and Patient was agreeable. Paperwork for the Cancer Care Fund was completed and faxed to Kassidy at the [facility]. VITOR Edwards documented in this encounterOhio Valley Hospital02-05-2025 Instructions* Patient Instructions* Nieves Smith - 04/11/2024 2:14 PM EST Proceed radiation per Dr. Hoang Repeat labs on first day of radiation RTC on 05/09 or 05/10 to start immunotherapy (nivolumab) Labs same day Continue Ritalin 10mg BID, as needed documented in this encounterOhio Valley Hospital02-05-2025 History of Present illness Narrative* Lo Hancock MD - 04/11/2024 1:00 PM EST Images from the original note were not included. NAME: Erin Pena [facility] NO[facility] [id number] DATE OF SERVICE: April 11, 2024 ([facility]) Some elements in this clinic note that are critical to medical decision making have been carefully reviewed and included from a prior clinic note dated: February 24, 2024 (Khadijah) Referring Provider: Gerald Abdi MD Additional Clinicians involved in [facility] care: Dr. Savanah Oreilly DIAGNOSIS: Squamous cell [...] Lung, left lower lobe, core biopsy: at [facility] - Invasive squamous cell carcinoma Comment: [...] internal carotid artery. 09/27/2023-09/29/2023 - Admitted at [facility] with left sided weakness, slurred speech [...] are going to a football game in [place] around [facility], will complete CT CAP and surgery [...] counts. 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 Erin's [id number]-[id number] is Arie Baker, who is my patient [...] REMV CATARACT EXTRACAP,INSERT LENS S KIT CRAINIOTOMY [id number] SHOULDER ARTHROSCOPY/SURG TYMPANOSTOMY GENERAL ANESTHESIA XR CERVICAL [...] which included preparing to see the patient, [id number] patient care, completing clinical documentation, obtaining and/or reviewing separately obtained history, performing a medically appropriate examination, counseling and educating the pat ient/family/caregiver, ordering medications, tests, or procedures, communicating with other HCPs (not separately reported), independently interpreting results (not separately reported), communicatingresults to the patient/family/caregiver, and care coordination (not separately reported). Lo Hancock MD, CPE Hematology and Oncology Services Provided at: [place], [place] Scribe Attestation: This note was scribed [...] direction. CC: Gerald Abdi [address] [address] Basia Vega MD [address] [facility] [address] Savanah Oreilly MD documented in this encounterOhio Valley Hospital02-05-2025 NoteFirelands Regional Medical Center02-05-2025 History of Present illness Narrative* Jack Hoang MD - 04/11/2024 12:00 AM EST ERIN PENA [id number] 04/11/2024 [facility] Department of Radiation Oncology SBRT CT Simulation Diagnosis/Disease: Malignant neoplasm of lower lobe, left bronchus or lungC34.32 Therapist: Liseth Handley Consent: Yes Area: LUNG Procedure: A time-out was conducted and recorded by the therapist. Patient simulated at [facility] for SBRT. Compression device in place, and a 4D CT was conducted. Position: SUPINE Thigh Positioner: 0 With Riser 1 Without Riser 1 Abdominal Cuff: SecureVac Cushion Index to Base @ 65 0 T-Vac Cushion Rt. Side Adjust 201 Tri-Vac Cushion Lt. side Adjust 200 [id number] Pump 18 INHALE Wingboard: Head Pad (B [...] HOANG M.D. 53:41 AM documented in this encounterOhio Valley Hospital02-05-2025 History of Present illness Narrative* Jack Hoang MD - 04/11/2024 12:00 AM EST ENRIKE ERIN Georgina [id number] 04/11/2024 [facility] Department of Radiation Oncology Treatment Planning Note [...] Hoang M.D. 59:44 PM documented in this encounterOhio Valley Hospital02-05-2025 NoteFirelands Regional Medical Center02-05-2025 NoteFirelands Regional Medical Center02-03-2025 History of Present illness Narrative* Bina Griffin DO - 04/09/2024 11:15 AM EST Images [...] artery stenosis Claudication (CMS-HCC) Occlusive disease, arterial Left-sided weakness Chronic obstructive pulmonary disease ([facility]) Malignant neoplasm of upper lobe of left lung (CMS-HCC) Mixed hyperlipidemia BP 121/76 Pulse 70 Wt [...] Karyn PEREZ Marc, MD documented in this encounterCleveland Clinic Lutheran Hospital01-28-2025 History of Present illness Narrative* Wendy [...] 03, 2024 TIME: 9:51 AM * Noemy Schumacher, RT(R) - 04/03/2024 9:30 AM EST RADIOLOGY [...] PATIENT PRESENTS WITH AN IMPLANTABLE OR ATTACHED COOK FISH EGGS: No CREATININE: Creatinine Date Value Ref Range [...] FDG. No other medications given.. ADMINISTRATION TIME: 944 PATIENT DISCHARGED TO: Ambulatory patient, left AL department area. Is this a therapy: No A Diagnostic radioactive procedure has taken place, with no further precautions necessary other than routine body substance precautions. More information regarding radiation safety can be found usingthis link: [email or web address] SIGNATURE: RT Stephanie(R) PATIENT NAME: Erin Pena DATE: April 03, 2024 TIME: 10:09 AM PAGER/CONTACT #: documented in this encounterOhio Valley Hospital01-28-2025 [facility]01-28-2025 [facility]01-17-2025 Instructions* Patient Instructions* Joey Scott APRN.CNP - 03/23/2024 3:12 PM EST Joey Scott CNP Department of Palliative and Supportive Care Palliative Care - Specialty services in symptom management and support For questions or prescription refills, call: [phone] Tuesday - Tuesday 9AM-5PM KRISTINA Alba, RN - Health Coordinator Please call 3-5 days in advance for medication refills Evenings, Weekends, Holidays: [phone] (ask for palliative medicine on-call provider) For appointments, cancellations or reschedule, call: [phone] documented in this encounterOhio Valley Hospital01-17-2025 History of Present illness Narrative* Joey Scott APRN.CNP - 03/23/2024 2:30 PM EST PALLIATIVE MEDICINE PROGRESS NOTE SERVICE DATE: 03/23/2024 CHIEF COMPLAINT: Neoplasm Related Pain PERTINENT MEDICAL HISTORY: Erin Pena is a 68 year old male with history of Squamous cell lung ca Left upper lobe, 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 Comleted neoadjuvant chemo / IO late [...] Ritalin sparingly, provided by oncology Modified ESAS ([place] Symptom Assessment Scale) Information Provided By: Patient [...] ear normal. Nose: Nose normal. Mouth/Throat: Lips: [place]. Mouth: Mucous membranes are moist. 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) Malignant neoplasm of upper lobe of left lung (HCC) (D49.9, G13.0) Paraneoplastic neuropathy (HCC) - Increase Gabapentin to 200 mg po at bedtime - Continue working with current pain provider for Fairview - Can also use Tylenol for mild pain but be aware of Tylenol amount of Fairview to keep 24-hour dosageunder 3000 mg (R11.0) Nausea - Can also use Tylenol for mild pain but be aware of Tylenol amount of [place]view to keep 24-hour dosageunder 3000 mg (G47.01) [...] Visit: 6-8 Weeks in person Joey Scott NP, CANDLES POURER.PADDING MACHINE OPERATOR March 23, 2024 2:22 PM I spent a total of 35 minutes on the date of the service which included preparing to see the patient, idey-ys-frks patient care, completing clinical documentation, obtaining and/or reviewing separately obtained history, performing a medically appropriate examination, counseling and educating the pat ient/family/caregiver, ordering medications, tests, or procedures, communicating with other HCPs (not separately reported), independently interpreting results (not separately reported), communicatingresults to the patient/family/caregiver, and care coordination (not separately reported). This note may have been partially generated using the [place] acquired by [employer] voice recognition system. While every effort was made to correct voice recognition errors, kindly be aware that some errors may occasionally occur. documented in this encounterOhio Valley Hospital01-17-2025 NoteFirelands Regional Medical Center01-13-2025 Telephone encounter Note* Telephone Encounter - Brittni Morrell - 03/19/2024 8:19 AM EST Confirmed with patient appts on 04/11 for De and follow up with BOBBY. Patient confirmed date and times. [facility]01-13-2025 Miscellaneous Notes* Telephone Encounter - Brittni Morrell [...] of 10:45 no special instructions Thanks Deandra Handley, RT(R) * Telephone Encounter - Cheyenne Olson - [...] again? Dr Oreilly: FYI... Noemy Chicas RN * Telephone Encounter [...] decides. Noemy Chicas RN documented in this encounterOhio Valley Hospital01-13-2025 Telephone encounter Note * Telephone Encounter - [...] 10:45 no special instructions Thanks RT Royal(R) [facility]01-10-2025 Telephone encounter Note* Telephone Encounter - Cheyenne Olson - 03/16/2024 3:10 PM EST PET has been scheduled for 04/03/24. Patient is aware. Cheyenne Olson PSS [facility]01-10-2025 Telephone encounter Note* Telephone Encounter - Noemy Chicas RN - 03/16/2024 12:00 PM EST Clerical/XRT: Pt called to follow up on status of appointments. Please reach out to pt when scheduled. Thanks! Noemy Chicas RN [facility] Work Phone: [phone] Telephone encounter Note* Telephone Encounter - Lo Hancock MD - 03/15/2024 3:42 PM EST I'd like to see him after Radiation appointment [facility]01-09-2025 Telephone encounter Note* Telephone Encounter - Lenora Sotelo RN - 03/15/2024 2:43 PM EST PSS- please work with Rad therapy to schedule follow up after pet. (See below regarding need to schedule this). Follow up should be day with availability to add on a Sim if needed. Thank you Lenora Sotelo RN [facility]01-08-2025 Telephone encounter Note* Telephone Encounter - Lenora Sotelo RN - 03/14/2024 2:[address] Hoang- would you like Simulation scheduled as well? Should this be after PET? Please advise. Lenora Sotelo RN [facility]01-08-2025 Telephone encounter Note* Telephone Encounter - Noemy Chicas RN - 03/14/2024 2:17 PM EST Pt has decided to proceed w/ radiation rather than surgery. Clerical: Pt will need PET as noted below per LANCE. Ang/Rupinder: Please advise on additional follow ups. Bobby: When would you like to see pt again? Dr Oreilly: FYI... Noemy Chicas RN [facility]01-08-2025 Telephone encounter Note* Telephone Encounter - Noemy Chicas RN - 03/14/2024 7:47 AM EST Order placed for PET if he wishes to proceed with definitive radiation therapy, Thanks! Jack [facility]01-07-2025 Telephone encounter Note* Telephone Encounter - Noemy Chicas RN - 03/13/2024 11:32 AM EST FYI: Pt calls to report that he's leaning towards radiation rather than surgery. Plans to make a decision tomorrow. Will call our office w/ update once he decides. Noemy Chicas RN [facility]01-06-2025 NoteFirelands Regional Medical Center01-06-2025 History of Present illness Narrative* Jack Hoang MD - 03/12/2024 11:54 PM EST Images from the original note were not included. Radiation Oncology - New Patient/Consult Note PATIENT NAME: Erin Pena PATIENT Signed: Jack Hoang MD I spent a total of 60 minutes on the date of the service which included preparing to see the patient, [id number]-[id number] patient care, and counseling and educating the patient/family/caregiver. This document has been created with the use of voice recognition technology. It may contain inaccuracies, misspellings, inaccurate syntax or inappropriate word context that are a result of the inadequacies/shortcomings of said technology/software. * Lenora Sotelo, EWELINA - 03/12/2024 12:57 PM EST Pacemaker/Defibrillator? No Previous Cancer(s)? No Previous Radiation? No Lupus/Scleroderma? No On body monitoring device? No Lenora Sotelo RN documented in this encounterOhio Valley Hospital01-06-2025 NoteFirelands Regional Medical Center01-02-2025 History of Present illness Narrative* Roebrt King NP - 03/08/2024 10:15 AM ESTAssociated [...] ALLERGIES: Allergies Allergen Reactions Spiriva Respimat [Tiotropium [place] Monohydrate] Shortness of breath Pt reported having [...] (HYDRODIURIL) 50 mg, Oral, Every morning HYDROcodone-acetaminophen ([place]) 7.5-325 MG tablet 1 tablet, Oral, 4 times daily PRN Krill Oil (Dayton-3) 500 MG capsule Take by mouth. losartan [...] develop for requiring urgent evaluation. Robert King CANDLES POURER-PADDING MACHINE OPERATOR documented in this encounterCrittenton Behavioral [id number] History of Present illness Narrative* Gary Owen MD - 03/05/2024 10:30 AM EST Erin Pena Date of visit: 03/05/2024 Date of : 1955 Age: 68 y.o. 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[facility]) Hyporeflexia Other affections of shoulder region, not elsewhere classified Essential hypertension Hypothyroidism Hx of fusion of cervical spine Bilateral carotid artery stenosis Claudication ([facility]) Occlusive disease, arterial Right internal carotid occlusion Left-sided weakness Lung mass Chronic obstructive pulmonary disease ([facility]) Malignant neoplasm of upper lobe of left lung ([facility]) Allergies Allergen Reactions Sulfa (Sulfonamide Antibiotics) Current [...] Patient presents with New Patient Pre-op Exam DESK SERGEANT REFERRAL PRE OP CLEARANCE DR SAVANAH OREILLY [facility] FAX [phone] TBD, MALIGNANTNEOPLASM OF UPPER LOBE OF LEFT [...] stress and echo 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 [...] min Stress: Patient Declined (04/19/2023) Received from [facility] [place] [facility] Occupational [facility] - Occupational Stress Questionnaire Feeling of Stress : Patient declined Social Connections: Unknown (04/19/2023) Received from [facility] Social Connection and Isolation Panel [NHANES] Frequency of Communication with Friends and Family: Three times a week Frequency of Social Gatherings with Friends and Family: Once a week Attends Temple Services: More than 4 times per year [...] of upper lobe of left lung (CMS-HCC) - [facility] [place], [place] 1. Primary hypertension, controlled 2. Hyperlipidemia [...] MIRANDA MD Referring Physician: Olegario Moreira MD [address] [place] [address] [place] [address] documented in this [facility] HospitalC-nario [facility] [id number] Instructions* Patient Instructions* Gary Owen MD - 03/05/2024 10:30 AM EST Wishing you all the best for 2024-- documented in this [facility]12-27-2024 Miscellaneous Notes* Telephone Encounter - Faith Lane CMA - 03/02/2024 2:38 PM EST Called patient to remind them to bring their most current copy of their medication list with them to their appt. Patient verbalizes understanding. documented in this [facility] HospitalC-nario [facility] [id number] Telephone encounter Note* Telephone Encounter - Faith Lane CMA - 03/02/2024 2:38 PM EST Called patient to remind them to bring their most current copy of their medication list with them to their appt. Patient verbalizes understanding. [facility]12-20-2024 Instructions* Patient Instructions* Nieves Smith - 02/24/2024 3:27 PM EST Complete pulmonary testing as scheduled on Tuesday Consultation with radiation in 1 week, referral made by Dr. Oreilly [facility] TBD based on radiation plans Start potassium supplement BID for 5 days - rx sent today Continue Ritalin 10mg BID documented in this encounterOhio Valley Hospital12-20-2024 History of Present illness Narrative* Lo Hancock MD - 02/24/2024 2:40 PM EST Images from the original note were not included. NAME: Erin Pena [facility] NO[facility] [id number] DATE OF SERVICE: February 24, 2024 (low) Some elements in this clinic note that [...] 1 week, referral made by Dr. Oreilly [facility] TBD based on radiation plans Start potassium [...] Lung, left lower lobe, core biopsy: at [facility] - Invasive squamous cell carcinoma Comment: [...] internal carotid artery. 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 Erin's kuepksy-tx-nnf is Arie TinocoJared, who is my patient also. REVIEW OF [...] REMV CATARACT EXTRACAP,INSERT LENS S KIT CRAINIOTOMY [id number] SHOULDER ARTHROSCOPY/SURG TYMPANOSTOMY GENERAL ANESTHESIA XR CERVICAL [...] which included preparing to see the patient, [id number] patient care, completing clinical documentation, obtaining and/or reviewing separately obtained history, performing a medically appropriate examination, counseling and educating the pat ient/family/caregiver, ordering medications, tests, or procedures, communicating with other HCPs (not separately reported), independently interpreting results (not separately reported), communicatingresults to the patient/family/caregiver, and care coordination (not separately reported). Lo Hancock MD, CPE Hematology and Oncology Services Provided at: [place], [place] Scribe Attestation: This note was scribed [...] and under my direction. CC: Gerald Abdi [address] 0[address] [facility] [address] Basia Vega MD [address] [facility] [address] Savanah Oreilly MD documented in this encounterOhio Valley Hospital12-20-2024 NoteFirelands Regional Medical Center12-16-2024 Telephone encounter Note* Telephone Encounter - Noemy [...] verbalizes understanding and agrees. Noemy Chicas RN [facility] Work Phone: 1(444) 588-732012-16-2024 Miscellaneous Notes* Telephone Encounter - Noemy Chicas [...] agrees. Noemy Chicas RN documented in this encounterOhio Valley Hospital12-09-2024 History of Present illness Narrative* Olegario Moreira MD - 02/13/2024 2:00 PM EST Images from the original note were not included. [facility] [place] [address] [facility] [id number] Subjective: Patient ID: Erin Pena is a [...] understanding. Olegario Moreira MD documented in this encounterCleveland [facility]20[facility] Instructions* Patient Instructions* Savanah Oreilly MD - 02/08/2024 11:50 AM EST Our office will call you to schedule your: Pulmonary function testing 6 Minute walk test Split lung function testing 2D Echo Cardiac stress test We will refer you to Dr. Jose Maria Pollard in Radiation Oncology at [place]. I will schedule a virtual follow up visit to discuss the results of the above testing and radiationoncology visit. documented in this encounterOhio Valley Hospital2024 History of Present illness Narrative* Savanah Oreilly MD - 02/08/2024 11:00 AM EST REASON FOR EVALUATION: Follow up. 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 On 09/25/2023 the patient presented to an outside ED for bilateral leg weakness. From 09/27/2023-09/29/2023 he was admitted at [facility] with left sided weakness, slurred speech. [...] Lung, left lower lobe, core biopsy: at [facility] that showed Invasive squamous cell carcinoma. 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 On 09/25/2023 the patient presented to an outside ED for bilateral leg weakness. From 09/27/2023-09/29/2023 he was admitted at [facility] with left sided weakness, slurred speech. [...] Lung, left lower lobe, core biopsy: at [facility] that showed Invasive squamous cell carcinoma. [...] hesitate to contact me. documented in this encounterOhio Valley Hospital2024 NoteFirelands Regional Medical Center11-21-2024 Telephone encounter Note* Telephone Encounter - Noemy Chicas RN - 01/26/2024 10:49 AM EST Pt notified and verbalizes understanding. Noemy Chicas RN [facility] Work Phone: 1(529) 119-377311-21-2024 Miscellaneous Notes* Telephone Encounter - Noemy Chicas [...] after Dr. Oreilly takes care of you! Best, Dr. Waggoner. documented in this encounterOhio Valley Hospital11-21-2024 Telephone encounter Note * Telephone Encounter - Noemy Chicas RN - 01/26/2024 10:47 AM EST ----- Message from Lo Hancock MD sent at 01/25/2024 7:10 PM EST ----- Scans show a nice response to treatment. - I will plan to see you after Dr. Oreilly takes care of you! Best, Dr. Waggoner. [facility]11-20-2024 History of Present illness Narrative* Jackie Cooley RT(R) - 01/25/2024 9:15 AM EST [...] PATIENT PRESENTS WITH AN IMPLANTABLE OR ATTACHED COOK FISH EGGS: No RADIOLOGY DEPARTMENT: CT; Exam(s) Completed: Chest Abdomen Pelvis PERIPHERAL IV DATA: Site assessment: Clean,Dry and Intact, Site disposition Discontinued SIGNED BY: RT Maryana(R) January 25, 2024 9:48 AM documented in this encounterOhio Valley Hospital11-20-2024 NoteFirelands Regional Medical Center11-13-2024 Telephone encounter Note* Telephone Encounter - Noemy Chicas RN - 01/18/2024 11:37 AM EST Spouse calls w/ questions regarding intimacy during treatment. Questions reviewed and answered. No additional questions noted. Noemy Chicas RN [facility] Work Phone: 1(188) 441-117911-13-2024 Miscellaneous Notes* Telephone Encounter - Noemy Chicas RN - 01/18/2024 11:37 AM EST Spouse calls w/ questions regarding intimacy during treatment. Questions reviewed and answered. No additional questions noted. Noemy Chicas, RN documented in this encounterOhio Valley Hospital11-12-2024 History of Present illness Narrative* Dick Miranda [...] (degenerative disc disease), cervical Relevant Medications HYDROcodone-acetaminophen ([place]) 7.5-325 MG tablet Chronic obstructive pulmonary disease (CMS/HCC) Symptoms stable and use albuterol PRN. Chemotherapy-induced neuropathy (CMS/HCC) Continued pain and try lyrica. Use norco PRN. Relevant Medications pregabalin (Lyrica) 75 MG capsule Encounter for long-term (current) use of medications Relevant Orders Basic metabolic panel documented in this encounterCrittenton Behavioral [id number] Telephone encounter Note* Telephone Encounter - Noemy Chicas RN - 01/04/2024 9:11 AM EDT Letter signed and pt's spouse notified. Will slat pickler at front end application developer tomorrow or Tuesday. Noemy Chicas RN [facility] Work Phone: 1(890) 692-777610-30-2024 Miscellaneous Notes* Telephone Encounter - Noemy Chicas RN - 01/04/2024 9:11 AM EDT Letter signed and pt's spouse notified. Will slat pickler at front end application developer tomorrow or Tuesday. Noemy Chicas RN * Telephone Encounter - Noemy Chicas RN - 01/03/2024 1:42 PM EDT Pt's spouse reports they have cancelled travel plans for end january. Need a letter from the physician states he is unable to travel. Letter on 's desk for signature. Noemy Chicas RN documented in this encounterOhio Valley Hospital10-29-2024 Telephone encounter Note * Telephone Encounter - Noemy Chicas RN - 01/03/2024 1:42 PM EDT Pt's spouse reports they have cancelled travel plans for end january. Need a letter from the physician states he is unable to travel. Letter on 's desk for signature. Noemy Chicas RN [facility]10-29-2024 Telephone encounter Note* Telephone Encounter - Noemy Chicas RN - 01/03/2024 11:28 AM EDT Call placed to pt. No answer. Message left on pt's personal voicemail, informing him it is ok to use the Voltaren cream. Advised he call back w/ any questions. Noemy Chicas RN [facility] Work Phone: 1(853) 901-932310-29-2024 Miscellaneous Notes* Telephone Encounter - Noemy Chicas [...] agree? Noemy Chicas RN documented in this encounterOhio Valley Hospital10-29-2024 Telephone encounter Note * Telephone Encounter - Florence De La Cruz RPh - 01/03/2024 10:59 AM EDT Yes, I agree. Emery De La Cruz, PharmD, BCOP [facility] Work Phone: 1(384) 969-101410-29-2024 Telephone encounter Note* Telephone Encounter - Noemy Chicas RN - 01/03/2024 9:55 AM EDT Pt's PCP recommended OTC Voltaren cream for pt's hip pain. Pt asks if he is ok to use this while onchemo/IO. Per Up To Date, no interaction noted between Voltaren and Carbo, Taxol, & Nivolumab. Pharmacy: Do you agree? Noemy Chicas RN [facility]10-29-2024 History of Present illness Narrative* Erin Mirela Skyler, - 01/03/2024 9:00 AM EDT Images from [...] 07/25 by Robert without relief. Went to [facility] ER 07/30 in severe pain, had [...] in the morning. 30 tablet 11 HYDROcodone-acetaminophen (Fairview) 7.5-325 MG tablet Take 1 tablet by mouth 4 (four) times a day as needed for severe pain for up to 23 days 90 tablet 0 Krill Oil ([place]-3) 500 MG capsule Take by mouth. 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 Annabella Holland D.O. documented in this encounterCrittenton Behavioral HealthEibnnxevup78-38-7521 Telephone encounter Note* Telephone Encounter - Noemy Chicas RN - 12/29/2023 4:56 PM EDT Pt notified and verbalizes understanding. Noemy Chicas RN [facility] Work Phone: 1(723) 546-751210-24-2024 Miscellaneous Notes* Telephone Encounter - Noemy Chicas [...] get the flu shot? Noemy Chicas RN documented in this encounterOhio Valley Hospital10-24-2024 Telephone encounter Note * Telephone Encounter - Lo Hancock MD - 12/29/2023 4:54 PM EDT Both sound good. [place] [address]-24-2024 Telephone encounter Note* Telephone Encounter - Noemy Chicas RN - 12/29/2023 3:00 PM EDT Pt calls w/ the following: PCP recommending he resume Plavix. Any objections from your standpoint? Would you recommend he get the flu shot? Noemy Chicas, RN [facility]10-24-2024 History of Present illness Narrative* Dick Miranda [...] lyrica but patient declined. documented in this encounterCrittenton Behavioral HealthOcfumsfgic67-91-8433 Telephone encounter Note* Telephone Encounter - Shilpi Centeno RN - 12/28/2023 10:56 AM EDT Please review and sign pended Potassium script for patient Potassium 3.3 today. Thank you, Shilpi Centeno RN [facility]10-23-2024 Miscellaneous Notes* Telephone Encounter - Shilpi Centeno RN - 12/28/2023 10:56 AM EDT Please review and sign pended Potassium script for patient Potassium 3.3 today. Thank you, Shilpi Centeno RN documented in this encounterOhio Valley Hospital10-23-2024 Instructions* Patient Instructions* Nieves Smith - 12/28/2023 10:12 AM EDT Proceed C3 D1 Carbo/Taxol + Nivo today Decrease Taxol to 175 and Carbo AUC to 5 Start Ritalin 10mg BID CT CAP in 4 weeks Proceed with surgery per Dr. Oreilly RTC with me in 9 weeks Labs same day documented in this encounterOhio Valley Hospital10-23-2024 History of Present illness Narrative* Lo Hancock MD - 12/28/2023 9:30 AM EDT Images from the original note were not included. NAME: Erin Pena [facility] NO[facility] [id number] DATE OF SERVICE: December 28, 2023 (Khadijah) [...] [facility] lower [facility] cell [facility] Comment: In [...] internal carotid artery. 09/27/2023-09/29/2023 - Admitted at [facility] with left sided weakness, slurred speech [...] are going to a football game in [place] around [facility], will complete CT CAP and surgery [...] counts. 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 Erin's jwwqnnk-dq-tkc is Arie Baker, who is my patient [...] REMV CATARACT EXTRACAP,INSERT LENS S KIT CRAINIOTOMY [id number] SHOULDER ARTHROSCOPY/SURG TYMPANOSTOMY GENERAL ANESTHESIA XR CERVICAL [...] which included preparing to see the patient, [id number]-hp-[id number] patient care, completing clinical documentation, obtaining and/or reviewing separately obtained history, performing a medically appropriate examination, counseling and educating the pat ient/family/caregiver, ordering medications, tests, or procedures, communicating with other HCPs (not separately reported), independently interpreting results (not separately reported), communicatingresults to the patient/family/caregiver, and care coordination (not separately reported). Lo Hancock MD, CPE Hematology and Oncology Services Provided at: [place], [place] Scribe Attestation: This note was scribed [...] and under my direction. CC: Gerald Abdi [address] [address] Basia Vega MD [address] [facility] [address] [facility] [address] Savanah Oreilly MD documented in this encounterOhio Valley Hospital10-23-2024 NoteFirelands Regional Medical Center10-21-2024 Telephone encounter Note* Telephone Encounter - Anna Rasmussen RN - 12/26/2023 9:38 AM EDT Palliative Medicine at Home Care Coordination New Patient Note Nurse introduced self and role of Health Coordinator in Palliative Medicine. Reviewed contact sheet information and on-call process. Nurse educated patient on medication refill process. Nurse encouraged patient to call with any questions/concerns/symptom related issues. Anna Rasmussen RN [facility]10-21-2024 Miscellaneous Notes* Telephone Encounter - Anna Rasmussen RN - 12/26/2023 9:38 AM EDT Palliative Medicine at Home Care Coordination New Patient Note Nurse introduced self and role of Health Coordinator in Palliative Medicine. Reviewed contact sheet information [...] capsule has a refill and they should slat pickler and take 100 mg, taking 2 capsules to equal 200 mg at bedtime. Introduction and contact MC message sent also since they did not have yet our contact information. Both verbalized understanding. Anna Rasmussen RN December 26, 2023 9:38 AM documented in this encounterOhio Valley Hospital10-21-2024 Telephone encounter Note * Telephone Encounter - [...] capsule has a refill and they should slat pickler and take 100 mg, taking 2 capsules to equal 200 mg at bedtime. Introduction and contact MC message sent also since they did not have yet our contact information. Both verbalized understanding. Anna Rasmussen RN December 26, 2023 9:38 AM [facility]10-18-2024 Telephone encounter Note* Telephone Encounter - Noemy Chicas RN - 12/23/2023 4:46 PM EDT Pt notified and verbalizes understanding. Noemy Chicas RN [facility] Work Phone: 1(329) [phone] Miscellaneous Notes* Telephone Encounter - Noemy Chicas [...] agree? Noemy Chicas RN documented in this encounterOhio Valley Hospital10-18-2024 Telephone encounter Note * Telephone Encounter - Lo Hancock MD - 12/23/2023 4:40 PM EDT Yes - HgbA1c doesn't always predict the neuropathy and should only be checked every 3 months. [facility]10-18-2024 Telephone encounter Note* Telephone Encounter - Noemy [...] understanding. Do you agree? Noemy Chicas RN [facility]10-18-2024 Instructions* Patient Instructions* Joey Scott APRN.CNP - 12/23/2023 1:42 PM EDT Joey Soctt CNP Department of Palliative and Supportive Care Palliative Care - Specialty services in symptom management and support For questions or prescription refills, call: [phone] Tuesday - Tuesday 9AM-5PM KRISTINA Alba, RN - Health Coordinator Please call 3-5 days in advance for medication refills Evenings, Weekends, Holidays: [phone] (ask for palliative medicine on-call provider) For appointments, cancellations or reschedule, call: [phone] documented in this encounterOhio Valley Hospital10-18-2024 NoteFirelands Regional Medical Center10-18-2024 History of Present illness Narrative* Joey Scott, ROSA.PADDING MACHINE OPERATOR - 12/23/2023 11:53 AM EDT PALLIATIVE MEDICINE INITIAL CONSULT SERVICE DATE: 12/23/2023 Referring Physician: Lo Hancock [address] [place] [address] [place] [address] Medical Oncologist: Lo Hancock MD Primary Physician: Dick Miranda MD REASON FOR CONSULT: Neoplasm Pain Subjective Erin Pena is a 68 year old male with history of Squamous cell lung ca Left upper lobe, 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 Current tx Carbo/Taxol + Nivo q3 [...] REMV CATARACT EXTRACAP,INSERT LENS S KIT CRAINIOTOMY [id number] SHOULDER ARTHROSCOPY/SURG TYMPANOSTOMY GENERAL ANESTHESIA XR CERVICAL [...] Types: Cigarettes REVIEW OF SYSTEMS: Modified ESAS ([place] Symptom Assessment Scale): Information Provided By: Patient [...] ear normal. Nose: Nose normal. Mouth/Throat: Lips: [place]. Mouth: Mucous membranes are moist. 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 Joey Scott NP, CANDLES POURER.PADDING MACHINE OPERATOR December 23, 2023 11:53 AM I spent a total of 45 minutes on the date of the service which included preparing to see the patient, cajh-ac-iknc patient care, completing clinical documentation, obtaining and/or reviewing separately obtained history, performing a medically appropriate examination, counseling and educating the pat ient/family/caregiver, ordering medications, tests, or procedures, communicating with other HCPs (not separately reported), independently interpreting results (not separately reported), communicatingresults to the patient/family/caregiver, and care coordination (not separately reported). This note may have been partially generated using the [place] acquired by [employer] voice recognition system. While every effort was made to correct voice recognition errors, kindly be aware that some errors may occasionally occur. documented in this encounterOhio Valley Hospital10-02-2024 Instructions* Patient Instructions* Nieves Smith - 12/07/2023 10:18 AM EDT Proceed C2 Day1 Carbo/Taxol + Nivo today q 3 weeks x1 Decrease Taxol to 175 and Carbo AUC to 5 RTC with me in 3 weeks for C3 treatment Labs same day documented in this encounterOhio Valley Hospital10-02-2024 History of Present illness Narrative* Lo Hancock MD - 12/07/2023 9:30 AM EDT Images from the original note were not included. NAME: Enrike Erin [facility] NO[facility] [id number] DATE OF SERVICE: December 07, 2023 (Khadijah) [...] [facility] lower [facility] Invasive squamous cell carcinoma Comment: In [...] internal carotid artery. 09/27/2023-09/29/2023 - Admitted at [facility] with left sided weakness, slurred speech [...] counts. 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 Erin's bzjpine-jk-qka is Arie Baker, who is my patient [...] REMV CATARACT EXTRACAP,INSERT LENS S KIT CRAINIOTOMY [id number] SHOULDER ARTHROSCOPY/SURG TYMPANOSTOMY GENERAL ANESTHESIA XR CERVICAL [...] which included preparing to see the patient, vwuk-xo-sjvv patient care, completing clinical documentation, obtaining and/or reviewing separately obtained history, performing a medically appropriate examination, counseling and educating the pat ient/family/caregiver, ordering medications, tests, or procedures, communicating with other HCPs (not separately reported), independently interpreting results (not separately reported), communicatingresults to the patient/family/caregiver, and care coordination (not separately reported). Lo Hancock MD, CPE Hematology and Oncology Services Provided at: [place], [place] Scribe Attestation: This note was scribed [...] direction. CC: Gerald Abdi [address] [facility] 0[address] [facility] [address] Basia Vega MD [address] [facility] [address] documented in this encounterOhio Valley Hospital09-26-2024 Telephone encounter Note * Telephone Encounter - Noemy Chicas RN - 12/01/2023 3:48 PM EDT Pt notified and verbalizes understanding. Noemy Chicas RN [facility] Work Phone: 1(611) 768-764209-26-2024 Miscellaneous Notes* Telephone Encounter - Noemy Chicas [...] proceed? Noemy Chicas RN documented in this encounterOhio Valley Hospital09-26-2024 Telephone encounter Note * Telephone Encounter - Lo Hancock MD - 12/01/2023 3:19 PM EDT Teeth cleaning is fine. [facility]09-24-2024 Telephone encounter Note* Telephone Encounter - Amanda Munoz HUC - 11/29/2023 1:34 PM EDT I called and spoke with the Patient, and have him scheduled to see Sharona for Pall Med on Tue12/23/23at 1 pm. ALIVIA Saini [facility]09-24-2024 Miscellaneous Notes* Telephone Encounter - Amanda Munoz [...] a script was sent to his local [place] pharmacy. Clerical: Please schedule pt w/ Joey [...] Pt c/o increased fatigue. Rates his fatigue 6-09/13. States he is able to remain active [...] understanding. Noemy Chicas RN documented in this encounterOhio Valley Hospital09-24-2024 Telephone encounter Note * Telephone Encounter - Noemy Chicas RN - 11/29/2023 1:21 PM EDT Pt scheduled to have his teeth cleaned next week. Is he ok to proceed? Noemy Chicas RN [facility]09-24-2024 Telephone encounter Note* Telephone Encounter - Noemy Chicas RN - 11/29/2023 1:13 PM EDT Pt notified and reports that he no longer takes Meloxicam. Agrees to Neurontin and Pall Med. Informed pt that a script was sent to his local [place] pharmacy. Clerical: Please schedule pt w/ Joey for pall med. Thanks! Noemy Chicas RN [facility] Work Phone: 1(521) 277-335509-24-2024 Telephone encounter Note* Telephone Encounter - Lo Hancock MD - 11/29/2023 12:31 PM EDT Let's give him neurontin 100 mg at night. He's already on Mobic, so avoid ibuprofen or motrin Pall med would be helpful as he's on quite a few other meds as well. [facility]09-24-2024 Telephone encounter Note* Telephone Encounter - Noemy [...] shedding. Pt verbalizes understanding. Noemy Chicas RN [facility]09-19-2024 History of Present illness Narrative* Prudence Chin RN - 11/24/2023 10:01 AM EDT Pt labs reviewed per Bobby. No needs/concerns at this time. Pt provided copy. Pt scheduled for massage tomorrow and wanted to verify no concerns, discussed with Bobby and pt is okay to have done. Prudence Chin RN documented in this encounterOhio Valley Hospital09-17-2024 Telephone encounter Note * Telephone Encounter - Noemy Chicas RN - 11/22/2023 10:08 AM EDT Pt notified and verbalizes understanding. Noemy Chicas RN [facility] Work Phone: [phone]) [phone] Miscellaneous Notes* Telephone Encounter - Noemy Chicas [...] generalized body aches. Rates his pain 8-11/14. Has Vicodin at home that he takes [...] protocol. Noemy Chicas RN documented in this encounterOhio Valley Hospital09-17-2024 Telephone encounter Note * Telephone Encounter - Lo Hancock MD - 11/22/2023 9:58 AM EDT Agree with your initial assessment. [facility]09-16-2024 Telephone encounter Note* Telephone Encounter - Noemy [...] recommendations at this time? Noemy Chicas RN [facility]09-16-2024 Telephone encounter Note* Telephone Encounter - Noemy [...] after hours number protocol. Noemy Chicas RN [facility]09-13-2024 Telephone encounter Note* Telephone Encounter - Dick Miranda MD - 11/18/2023 12:26 PM EDT [id number] Miscellaneous Notes* Telephone Encounter - Dick Miranda MD - 11/18/2023 12:26 PM EDT documented in this encounterCrittenton [facility]al [id number] History of Present illness Narrative* Steffany Damian [...] NETWORK: Social Connections: Unknown (04/19/2023) Received from [facility] [employer] [facility] Social Connection and Isolation Panel [NHANES] Frequency of Communication with Friends and Family: Three times a week Frequency of Social Gatherings with Friends and Family: Once a week Attends Temple Services: More than 4 times per year Active Member of Clubs or Organizations: Patient declined Attends Club or Organization Meetings: Patient declined Marital Status: Marital status: 34 years Child/Children: Yes. How many? 2 sons childcare center administrator arrangements needed: No Grandchild(melanie): none Home Health Provider: No Community Services: No Aimee Identified: Yes Holiness/Spirituality: Cheondoism Is a member of [facility] [employer] in [place], [place]. Are these practices or beliefs that may affect or influence treatment? Yes EMPLOYMENT/FINANCIAL/HEALTH INSURANCE: Employment: Retired Income source: Social Security Insurance: Medicare only Prescription coverage: Yes Is the patient appropriate for referral to [facility] COBRA Assistance program? No Financial Distress: No : No FOOD INSECURITY Within the past year, have you worried about how you would buy or obtain food? No LIVING ARRANGEMENTS: Type: House- independent colonial Resides with: Mandy Transportation Needs: No Transportation Needs (09/27/2023) [facility] - Transportation Lack of Transportation (Medical): [...] DIRECTIVES/LEGAL DOCUMENTS: Living Will: Yes Scanned into [employer] Lighting II: Yes, Mandy is the agent Health Care Durable Power of Machine Carton Marker: Yes Scanned into EPIC: Yes, Mandy is the agent Guardianship: NA Scanned into EPIC:NA Reasons Advanced Directives were not Addressed: NA Goals of Care Date of Discussion: 11/16/2023 Advance Directives are on file SIGNATURE: BLANCA Edwards PATIENT NAME: Erin Pena DATE: November 16, 2023 TIME: 2:45 PM PAGER/CONTACT #: COPING STATUS: Stress: Patient Declined (04/19/2023) Received from [employer], [employer] [place] [facility] - Occupational Stress Questionnaire Feeling of Stress : Patient declined Coping Strengths: supportive relationships with immediate family, with friends, and with sikh spirituality successful managing past crises hopefulness self [...] diagnosis of lung cancer. Patient lives in [place], [place] with his Mandy. Patient is retired. [...] tab: Yes VITOR Edwards documented in this encounterOhio Valley Hospital09-11-[facility]24 History of Present illness Narrative* Steffany Damian LSW - 11/16/2023 2:10 PM EDT Opened in error. documented in this encounterOhio Valley Hospital09-11-2024 Telephone encounter Note * Telephone Encounter - Evelyn Chavez - 11/16/2023 10:44 AM EDT Patient is active with [employer] Medicare Advantage, LOC 60%, $1,000 deductible has $1,000 remaining, $5,500 OOP has $3,800.19 remaining. Estimate shows patient financial responsibility is $3,038.49 foreach treatment in 2023 until oop max is reached. Called the patient to discuss, left a voicemail toreturn call. Reference #[id number]. Also sent Cost Facit through [employer] [facility]09-11-2024 Miscellaneous Notes* Telephone Encounter - Evelyn Chavez - 11/16/2023 10:44 AM EDT Patient is active with [employer] Medicare Advantage, LOC 60%, $1,000 deductible has $1,000 remaining, $5,500 OOP has $3,800.19 remaining. Estimate shows patient financial responsibility is $3,038.49 foreach treatment in 2023 until oop max is reached. Called the patient to discuss, left a voicemail toreturn call. Reference #[id number]. Also sent Cost Facit through [employer] documented in this encounterOhio Valley Hospital09-11-2024 Instructions* Patient Instructions* Nieves Smith - 11/16/2023 9:28 AM EDT Proceed Cycle1 Day1 Carbo/Taxol + Nivo today q 3 weeks x3 David counts on D10, wait for results No clinician visit RTC with me in 3 weeks for C2 treatment Labs same day documented in this encounterOhio Valley Hospital09-11-2024 History of Present illness Narrative* Lo Hancock MD - 11/16/2023 9:15 AM EDT Images from the original note were not included. NAME: Erin Pena [facility] NO[facility] [id number] DATE OF SERVICE: November 16, 2023 (Khadijah) [...] Lung, left lower lobe, core biopsy: at [facility] - Invasive squamous cell carcinoma Comment: [...] internal carotid artery. 09/27/2023-09/29/2023 - Admitted at [facility] with left sided weakness, slurred speech [...] counts. 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 Erin's fxeigak-pm-axx is Arie Baker, who is my patient [...] EXTRACAP,INSERT LENS No date: S KIT CRAINIOTOMY [id number] No date: SHOULDER ARTHROSCOPY/SURG No date: TYMPANOSTOMY [...] which included preparing to see the patient, geqy-up-pcmm patient care, completing clinical documentation, obtaining and/or reviewing separately obtained history, performing a medically appropriate examination, counseling and educating the pat ient/family/caregiver, ordering medications, tests, or procedures, communicating with other HCPs (not separately reported), independently interpreting results (not separately reported), communicatingresults to the patient/family/caregiver, and care coordination (not separately reported). Lo Hancock MD, CPE Hematology and Oncology Services Provided at: [place], [place] Scribe Attestation: This note was scribed [...] my direction. CC: Gerald Abdi [address] [address] Basia Vega MD [address] [facility] [id number] documented in this encounterOhio Valley Hospital09-10-2024 Telephone encounter Note * Telephone Encounter - Noemy Chicas RN - 11/15/2023 4:27 PM EDT Pt would like to meet w/ the tools administrator. Order pended. Noemy Chicas RN [facility]09-10-2024 Miscellaneous Notes* Telephone Encounter - Noemy Chicas RN - 11/15/2023 4:27 PM EDT Pt would like to meet w/ the tools administrator. Order pended. Noemy Chicas RN documented in this encounterOhio Valley Hospital09-10-2024 History of Present illness Narrative* Noemy Chicas RN - 11/15/2023 4:22 PM EDT Health Coordinator Pre Chemo Patient identified by name and date of . YES Confirmed date and time for chemotherapy ? YES Other appointments (labs, imaging) discussed? YES Discussed where to park (booster operator), charge for parking NO Discussed where to [...] treatment. YES Other topics discussed, interventions needed: DELMY Chicas RN * Noemy Chicas RN - [...] Spent: 60 minutes REFERRAL (RECOMMENDATION): Nutrition Noemy Chicas, EWELINA documented in this encounterOhio Valley Hospital09-10-2024 Telephone encounter Note * Telephone Encounter - Leona Bernard - 11/15/2023 3:41 PM EDT Patient coming in Tuesday11/16/23 for follow up treatment. Please add lab orders. Thanks. Leona Bernard MA [facility]09-09-2024 Telephone encounter Note* Telephone Encounter - Noemy Chicas RN - 11/14/2023 4:00 PM EDT Pt will be in tomorrow for education. Scripts for antiemetics pended. Noemy Chicas RN [facility] Work Phone: [phone]) [phone] Miscellaneous Notes* Telephone Encounter - Noemy Chicas RN - 11/14/2023 4:00 PM EDT Pt will be in tomorrow for education. Scripts for antiemetics pended. Noemy Chicas RN documented in this encounterOhio Valley Hospital09-09-2024 Telephone encounter Note * Telephone Encounter - Evnagelina Linton - 11/14/2023 3:16 PM EDT Patient notified and in agreement. Scheduled education for tomorrow and RV and treatment w/ BOBBY on Tuesday - moved his appt that day to an earlier time to allow for treatment. Thanks! Evangelina Linton [facility]09-09-2024 Miscellaneous Notes* Telephone Encounter - Evangelina Linton - 11/14/2023 3:16 PM EDT Patient notified and in agreement. Scheduled education for tomorrow and RV and treatment w/ BOBBY on Tuesday - moved his appt that day to an earlier time to allow for treatment. Thanks! Evangelina Linton * Telephone Encounter - Evangelina Linton - 11/11/2023 3:58 PM EDT Appointment out to [facility] for coordination. Evangelina Linton * Telephone Encounter - Noemy Chicas RN - 11/11/2023 1:46 PM EDT Clerical: Please see Dr's instructions below. Thanks! Noemy Chicas RN * Telephone Encounter - Noemy Chicas RN - 11/11/2023 1:46 PM EDT Images from the original note were not included. Lo Hancock MD Wudel, Ashley; Hugh Craig MD Cc: [facility] Clerical Pool; [facility] Pharmacy Pool; Noemy Chicas, EWELINA Thanks Dex and Juan! Nobles Team when he comes back to us, can we get him started on treatment? May have to push his 11/15 appointment out a little further to accommodate education and treatment time. Orders have already been placed for Taxol / Carbo / Nivo. Archana, Frank documented in this encounterOhio Valley Hospital09-06-2024 Telephone encounter Note * Telephone Encounter - Evangelina Linton - 11/11/2023 3:58 PM EDT Appointment out to [facility] for coordination. Evangelina Linton [facility]09-06-2024 Telephone encounter Note* Telephone Encounter - Noemy Chicas RN - 11/11/2023 1:46 PM EDT Clerical: Please see 's instructions below. Thanks! Noemy Chicas RN [facility] Work Phone: [phone] Telephone encounter Note* Telephone Encounter - Noemy Chicas RN - 11/11/2023 1:46 PM EDT Images from the original note were not included. Lo Hancock MD Wudel, Ashley; Hugh Craig MD Cc: [facility] Clerical Pool; [facility] Pharmacy Pool; Noemy Chicas RN Thanks Dex and Juan! Nobles Team when he comes back to us, can we get him started on treatment? May have to push his 11/15 appointment out a little further to accommodate education and treatment time. Orders have already been placed for Taxol / Carbo / Nivo. Thanks, V. [facility]09-05-2024 Instructions* Patient Instructions* Savanah Oreilly MD - 11/10/2023 5:08 PM EDT I will see you at the completion of your laura-adjuvant therapy to review your post treatment scans and plan for definitive surgical resection of your left upper lobe lung cancer. documented in this encounterOhio Valley Hospital09-04-2024 History of Present illness Narrative* Savanah Oreilly MD - 11/09/2023 1:00 PM EDT REASON FOR EVALUATION: Left upper lobe squamous cell cancer. 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 On 09/25/2023 the patient presented to an outside ED for bilateral leg weakness. From 09/27/2023-09/29/2023 he was admitted at [facility] with left sided weakness, slurred speech. [...] Lung, left lower lobe, core biopsy: at [facility] that showed Invasive squamous cell carcinoma. 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 On 09/25/2023 the patient presented to an outside ED for bilateral leg weakness. From 09/27/2023-09/29/2023 he was admitted at [facility] with left sided weakness, slurred speech. [...] Lung, left lower lobe, core biopsy: at [facility] that showed Invasive squamous cell carcinoma. [...] you for your kind referral of Erin Enrike to me. If you have any questions or if I can be of help to you with any of your other patients, please do not hesitate to contact me. documented in this encounterOhio Valley Hospital08-27-2024 NoteHNO ID: [id number] Author: YIMI RODRIGUEZ DO Service: Anesthesiology Author Type: Resident Type: Anesthesia Procedure Notes Filed: 11/01/2023 12:22 Note Text: ANESTHESIOLOGY PROCEDURE NOTE Airway General Information Procedure Start Time/Medication Administration: 11/01/2023 12:19 PM Procedure End Time: 11/01/2023 12:20 PM Patient location during procedure: OR Timeout Performed Pre-procedure: timeout performed Consent Obtained: Yes Patient identity confirmed: arm band, care paper steamer and patient Staffing Resident: Yimi Rodriguez DO [...] November 01, 2023 TIME: 12:21 PM CSN: [id number] [id number] History of Present illness Narrative* Yakov Shaikh, Research Coordinator - 11/01/2023 12:13 PM EDT Study title: DNA Evaluation of Fragments for Early Interception - Lung Cancer Training Study ([id number] Study) [facility] IRB #: [id number] PI: Roe Avila M.D., Erin Pena is interested in above study and appears to meet all Inclusion/Exclusion criteria at this time. Patient was informed of this study via [id number] discussion. The Informed Consent document was thoroughly [...] DRAWN at consent visit with kit number [id number] on 11/01/2023 at 1115 by Bronch Nurse [...] and lab manual. Yakov Shaikh Research Coordinator [facility] documented in this encounterOhio Valley Hospital08-27-2024 Telephone encounter Note * Telephone Encounter - Tommie Mcfadden RN - 11/01/2023 11:53 AM EDT Spoke with patient's spouse, Anika, expressing concern with misread and documented CT from [facility] that report nodule in [place]. Confirmed our report shows LLL. Anika expressed gratitude for verifying our office received the revised report. Denied further questions or concerns at this time. Tommie Mcfadden RN [facility]08-27-2024 Miscellaneous Notes* Telephone Encounter - Tommie Mcfadden [...] today with Dr. Craig documented in this encounterOhio Valley Hospital08-27-2024 Telephone encounter Note * Telephone Encounter - Chaya Gama - 11/01/2023 11:42 AM EDT Patient's , Mandy called and would like a call back regarding a few questions about her 's procedure today with Dr. Craig [facility]08[facility]27-[facility] Patient Name: Erin Pena Procedure Date: 11/01/2023 11:19 AM Date of : 1955 Admit Type: Outpatient Age: 67 Room: [facility] 2 Gender: Male Attending MD: Hugh Craig MD, [id number] Procedure: Bronchoscopy Indications: Mediastinal staging of confirmed [...] physician, the nurse, the anesthesiologist and the spinning frame changer in the procedure room. Mental Status Examination: [...] 10L) and left interlobar region (level 11L). Impressio (more content not included)...[id number] History of Present illness Narrative* Nancy Elizondo, CANDLES POURER.PADDING MACHINE OPERATOR - 10/28/2023 11:38 AM EDT Pre-Bronchoscopy H&P [...] a recent TIA. During work up in [facility], a lung mass was found. TTNA was done which was positive for squamous cell carcinoma. Patient now wishes to transfer his care to [facility] for lung cancer treatment. Has SOB with [...] and HCTZ PAD: follows with vascular at [facility] Chest pain Anticoagulants: Yes ASA 81m10/21/23 Plavix: LD 10/21/23 Neurological Risk Factors: Yes TIA 09/27/23: does not have a neurologist, was supposed to follow up but didnt Craniotomy 2014 d/t CSF leak Chronic pain: on [place] Anxiety: Intubation Risk Factors: Yes Neck Surgery [...] COVID-19 original vaccine, age 12+ yr, monovalent ([employer] - PURPLE TOP) 02/18/2021 COVID-19 original vaccine, [...] EXTRACAP,INSERT LENS No date: S KIT CRAINIOTOMY [id number] No date: SHOULDER ARTHROSCOPY/SURG No date: TYMPANOSTOMY [...] COVID-19 original vaccine, age 12+ yr, monovalent ([employer] - PURPLE TOP) 02/18/2021 COVID-19 original vaccine, [...] 402 QTC Calculation (Bazett) 418 Calculated P York 52 Calculated R York 66 Calculated T York 28 Impression NORMAL SINUS RHYTHM LOW VOLTAGE QRS, CONSIDER PULMONARY DISEASE, PERICARDIAL EFFUSION, OR NORMAL VARIANT BORDERLINE ECG Assessment/Plan: 1.) Lung mass Patient has a LLL lung mass which was positive for squamous cell carcinoma via TTNA at [facility]. Agree with plan for EBUS to [...] chest pain. Will defer to the interventional service delivery analyst performing the procedure on whetherthe patient needs cardiac clearance prior to proceeding with bronchoscopy. Patient has the following medical conditions which may affect willa-operative course: 2. Chronic obstructive pulmonary disease, unspecified COPD type (HCC) - Recent PFTs completed at [facility] per patient. - on prn albuterol inhaler [...] Future 7. Other chronic pain - On [place]. - Patient reports he usually require more sedation during procedures 8. Former smoker - encouraged smoking cessation 9. PAD (peripheral artery disease) ([facility]) - Follows with vascular at another hospital ([facility]) This consultation note will be communicated to the referring provider. Nancy Elizondo APRN.MAXIMILIANO October 28, 2023, 11:38 AM documented in this encounterOhio Valley Hospital08-21-2024 Telephone encounter Note * Telephone Encounter - Lo Hancock MD - 10/26/2023 9:23 PM EDT No - will need results but planning for carbo / taxol + Nivolumab x 3 cycles. [facility]-2024 Miscellaneous Notes* Telephone Encounter - Lo Hancock [...] used Spirivasince. RX from Lung doc at [facility]. They will notify them as well, for further instruction. Pt denies SOB at this time. Speaks in complete sentences, without audible distress. Bronchoscopy/EBUS/Bx with Dr Craig scheduled 11/01/23. Bobby: Any further recommendations? Prudence Chin RN documented in this encounterOhio Valley Hospital08-21-2024 Instructions* Patient Instructions* Dana Crowe APRN.MAXIMILIANO - 10/26/2023 2:42 PM EDT Images from the original note were not included. [facility]est[facility] PATIENT PREOPERATIVE INSTRUCTIONS Hugh Craig MD has scheduled you for your procedure at this [facility] center: [facility]: [phone] --[id number] [address]. Please check in on the1st floor at registration desk 6. Arrival Time [...] Procedures: - YOU MUST HAVE A RESPONSIBLE LEAD ELECTRICAL CONTROLS ENGINEER TAKE YOU HOME. A TOOL PROCUREMENT COORDINATOR OR EVENT MARKETING COORDINATOR CANNOT BE MADE A RESPONSIBLE LEAD ELECTRICAL CONTROLS ENGINEER. - We recommend that a responsible person stays with you overnight to take care of you. - You cannot stay in a hotel alone after outpatient surgery. You will not be permitted to have yoursurgery, if you do not have someone to take care of you. If you already have an Advance Directive, please fax a copy to [phone] or email to for it to be [...] into your chart that day. Dana Crowe APRN.MAXIMILIANO documented in this encounterOhio Valley Hospital08-21-2024 History and physical note * Dana Crowe [...] Monitored per PCP. PAD (peripheral artery disease) (HCC) Assessment: Known [...] EXTRACAP,INSERT LENS No date: S KIT CRAINIOTOMY [id number] No date: SHOULDER ARTHROSCOPY/SURG No date: TYMPANOSTOMY [...] Covid Immunization Dates Overdue - Covid-19 Vaccine (2022- season) Overdue since 11/05/2022 02/18/2021 Imm Admin: COVID-19 original vaccine, age 12+ yr, monovalent ([employer] - PURPLE TOP) 06/02/2020 Imm Admin: COVID-19 original vaccine, full dose, monovalent (MODERNA) 05/02/2020 Imm Admin: COVID-19 original vaccine, full dose, monovalent (MODERNA) REVIEW OF SYSTEMS: PAIN ASSESSMENT: General: No weight loss, malaise or fevers. Neuro: Negative for Headaches Seizures Tumor involving PLASTIC MIXER Parkinson's Disease Multiple Sclerosis + TIA + Impaired balance + H/O CSF leak s/p craini Respiratory: See HPI + Ex Smoker + COPD Cardiovascular: Negative for Recent MN, Angina, Arrhythmia + HTN + HLD + [...] ntains abnormal data COMPLETE BLOOD COUNT Order: [id number] Component Ref Range & Units 3 wk [...] 0.4 X10E9/L 0.2 COMPREHENSIVE METABOLIC PANEL Order: [id number] Component Ref Range & Units 3 wk [...] 402 QTC Calculation (Bazett) 418 Calculated P York 52 Calculated R York 66 Calculated T York 28 Impression NORMAL SINUS RHYTHM LOW VOLTAGE QRS, CONSIDER PULMONARY DISEASE, PERICARDIAL EFFUSION, OR NORMAL VARIANT BORDERLINE ECG Most recent Echo ECHO Order: [id number] Narrative Left Ventricle: Left ventricle appears normal [...] Erin Pena DATE: 10/26/2023 TIME: 2:59 PM [facility] History and physical note* Dana Crowe APRN.CNP [...] Monitored per PCP. PAD (peripheral artery disease) ([facility]) Assessment: Known blockage - on baby ASA [...] EXTRACAP,INSERT LENS No date: S KIT CRAINIOTOMY [id number] No date: SHOULDER ARTHROSCOPY/SURG No date: TYMPANOSTOMY [...] Covid Immunization Dates Overdue - Covid-19 Vaccine (2022-) Overdue since 11/05/2022 02/18/2021 Imm Admin: COVID-19 original vaccine, age 12+ yr, monovalent ([employer] - PURPLE TOP) 06/02/2020 Imm Admin: COVID-19 original vaccine, full dose, monovalent (MODERNA) 05/02/2020 Imm Admin: COVID-19 original vaccine, full dose, monovalent (MODERNA) REVIEW OF SYSTEMS: PAIN ASSESSMENT: General: No weight loss, malaise or fevers. Neuro: Negative for Headaches Seizures Tumor involving PLASTIC MIXER Parkinson's Disease Multiple Sclerosis + TIA + Impaired balance + H/O CSF leak s/p craini Respiratory: See HPI + Ex Smoker + COPD Cardiovascular: Negative for Recent MN, Angina, Arrhythmia + HTN + HLD + [...] +2. Diagnostic tests reviewed for today's visit: brynins abnormal data COMPLETE BLOOD COUNT Order: [id number] Component Ref Range & Units 3 wk [...] 0.4 X10E9/L 0.2 COMPREHENSIVE METABOLIC PANEL Order: [id number] Component Ref Range & Units 3 wk [...] 402 QTC Calculation (Bazett) 418 Calculated P York 52 Calculated R York 66 Calculated T York 28 Impression NORMAL SINUS RHYTHM LOW VOLTAGE QRS, CONSIDER PULMONARY DISEASE, PERICARDIAL EFFUSION, OR NORMAL VARIANT BORDERLINE ECG Most recent Echo ECHO Order: [id number] Narrative Left Ventricle: Left ventricle appears normal [...] 10/26/2023 TIME: 2:59 PM documented in this encounterOhio Valley Hospital08-21-2024 Telephone encounter Note * Telephone Encounter - Prudence Chin RN - 10/26/2023 12:46 PM EDT Pt called to inform providers that he used Spiriva for the first time Tuesday and developed increased shortness of breath. Pt used Albuterol, and shortness of breath subsided. He has not used Spirivasince. RX from Lung doc at [facility]. They will notify them as well, for further instruction. Pt denies SOB at this time. Speaks in complete sentences, without audible distress. Bronchoscopy/EBUS/Bx with Dr Craig scheduled 11/01/23. Bobby: Any further recommendations? Prudence Chin RN [facility]08-20-[facility] Nurse Note* Gayathri Fuentes MA - 10/25/2023 11:25 AM EDT Patient identified by 2 identifiers. EKG performed as ordered. Gayathri Fuentes MA [facility]08-20-2024 Nurse Note* Gayathri Fuentes MA - 10/25/2023 11:25 AM EDT Patient identified by 2 identifiers. EKG performed as ordered. Gayathri Fuentes MA documented in this encounterOhio Valley Hospital08-20-2024 History of Present illness Narrative* Lenora Rodrigez RN - 10/25/2023 11:06 AM EDT Spoke with patient and will get his treatment at . Future apt is cancelled. Dr. Abdi updated. ===View-only below this line=== ----- Message ----- From: Gerald Abdi MD Sent: 10/24/2023 1:14 PM EDT To: [facility] Onc Nurses Subject: FW: Import Pt will likely have treatment done at [facility]. Please verify. ----- Message ----- From: Ivy Campo CMA Sent: 10/24/2023 12:35 PM EDT To: Gerald Abdi MD Subject: Import Imported by Ivy Campo CMA on 10/24/2023 at 12:35 PM to the following: Scanned Document on 10/24/2023 with Ivy Campo CMA [[id number]] documented in this encounterC[facility]24 NoteHNO ID: [id number] Author: ?, ?, ? Service: ? Author Type: ? Type: Progress Notes Filed: 10/25/2023 10:13 Note Text: [facility] with [id number] Telephone encounter Note* Telephone Encounter - Kalee Daniel - 10/25/2023 8:46 AM EDT 2nd opinion pathology requested from [facility] to be [facility] to [facility] for review. Thank you [facility]08-20-2024 Miscellaneous Notes* Telephone Encounter - Kalee Daniel - 10/25/2023 8:46 AM EDT 2nd opinion pathology requested from [facility] to be sent to [facility] for review. [...] the chart is the only pathology at [facility]. Does this need a second opinion from [facility]? Please place Molecular study orders. Thanks for your help. documented in this encounterOhio Valley Hospital08-19-2024 NoteHNO ID: [id number] Author: ?, ?, ? Service: ? Author Type: ? Type: Progress Notes Filed: 10/24/2023 16:54 Note Text: Called, s/w patient and spouse on the line regarding: Bronchoscopy Request: Procedure Date 11/01/2023 Location: [facility]: [address] [place] [address] Check in: 1st floor Admission Arrival time: Will be call to them the afternoon the day prior to the procedure Parking: [employer], or at adjacent Parking garage Advised patient NPO after midnight from evening prior, through procedure time Patient will need a driver license reviewing officer Scheduling needs: EKG NPV- Scheduled Communication of medication: Is patient on anticoagulants/anti-plt therapy? Yes Plavix or medications alike ok to stop medication for 5 days Provided patient with office number, and time to ask questions, and write down information Provide office # of: [phone] 5 Also sent a Emair Chart message with provided informationB[facility] 10-[facility]23 History of Present illness Narrative* Zaira Huang - 10/24/2023 4:53 PM EDT Called, s/w patient and spouse on the line regarding: Bronchoscopy Request: Procedure Date 11/01/2023 Location: [facility]: [address] [place] [address] Check in: 1st floor Admission Arrival time: Will be call to them the afternoon the day prior to the procedure Parking: [employer], or at adjacent Parking garage Advised patient NPO after midnight from evening prior, through procedure time Patient will need a driver license reviewing officer Scheduling needs: EKG NPV- Scheduled Communication of medication: Is patient on anticoagulants/anti-plt therapy? Yes Plavix or medications alike ok to stop medication for 5 days Provided patient with office number, and time to ask questions, and write down information Provide office # of: [phone] x 5 Also sent a Emair Chart message with provided information * Hugh [...] OF ABOVE TWO QUESTIONS PLEASE REFER TO [facility] ANESTHESIA GUIDANCE ON HOLDING Diagnosis/Reason for Bronchoscopy: Recent dx of LLL squamous cell, needs staging EBUS Referred by: Khadijah Reviewed by: NEERAJ Craig MD October 24, 2023 4:12 PM documented in this encounterOhio Valley Hospital08-19-2024 NoteHNO ID: [id number] Author: TOMMIE MCFADDEN RN Service: ? Author [...] back method and requested information sent via [employer] also. Message sent per request. IF YES TO EITHER OF ABOVE TWO QUESTIONS PLEASE REFER TO [facility] ANESTHESIA GUIDANCE ON HOLDING Diagnosis/Reason for Bronchoscopy: Recent dx of LLL squamous cell, needs staging EBUS Referred by: Khadijah Reviewed by: NEERAJ Craig MD October 24, 2023 4:12 [facility]08-19-2024 Telephone encounter Note* Telephone Encounter - Prudence Chin RN - 10/24/2023 1:16 PM EDT Maria A/Kalee: Please complete process Thank you, Prudence Chin RN [facility]08-19-2024 Telephone encounter Note* Telephone Encounter - Prudence Chin RN - 10/24/2023 11:06 AM EDT Bobby: Please review and sign pended order for second review [facility]08-19-2024 Telephone encounter Note* Telephone Encounter - Kalee Daniel - 10/24/2023 9:15 AM EDT The Pathology in the chart is the only pathology at [facility]. Does this need a second opinion from [facility]? Please place Molecular study orders. Thanks for your help. [facility]08-19-2024 Telephone encounter Note* Telephone Encounter - Evangelina [...] - by the way the path from [facility] is discordant in terms of location from images and the ammendment is confusing too. Bobby Monaco. [facility]08-19-2024 Miscellaneous Notes* Telephone Encounter - Evangelina Linton [...] - by the way the path from [facility] is discordant in terms of location from images and the ammendment is confusing too. Bobby Monaco. documented in this encounterOhio Valley Hospital08-16-2024 Instructions* Patient Instructions* Nieves Baker - 10/21/2023 4:49 PM EDT Referral to Dr. Craig and Dr. Oreilly Obtain pathology from [facility] Molecular studies to be done on outside path documented in this encounterOhio Valley Hospital08-16-2024 History of Present illness Narrative* Lo Hancock MD - 10/21/2023 4:30 PM EDT Images from the original note were not included. NAME: Erin Pena [facility] NO.: [id number] DATE OF SERVICE: October 21, 2023 (Khadijha) Referring Provider: Gerald Abdi MD Consultation requested [...] Craig and Dr. Oreilly Obtain pathology from [facility] Molecular studies to be done on outside path Plan to start neoadjuvant therapy after staging q 3 weeks x3 Needs education and consent Labs on day of start HPI: CASE HISTORY: Reverse Chronological Order 10/21/2023 - PET/CT: Abnormal uptake confined to the left upper lobe mass without evidence for metastatic disease. 10/05/2023 - Lung, left lower lobe, core biopsy: at [facility] - Invasive squamous cell carcinoma Comment: [...] internal carotid artery. 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 Erin's [id number] is Arie Baker, who is my patient [...] which included preparing to see the patient, [id number] patient care, completing clinical documentation, obtaining and/or reviewing separately obtained history, performing a medically appropriate examination, counseling and educating the pat ient/family/caregiver, ordering medications, tests, or procedures, communicating with other HCPs (not separately reported), independently interpreting results (not separately reported), communicatingresults to the patient/family/caregiver, and care coordination (not separately reported). Lo Hancock MD, CPE H[facility]ology [facility] Oncology Services Provided at: [place], [place] Scribe Attestation: This note was scribed [...] under my direction. CC: Gerald Abdi [address] [address] Basia Vega MD [address] [facility] [address] documented in this encounterOhio Valley Hospital08-15-2024 History of Present illness Narrative* Estefany Lang, DO - 10/20/2023 12:00 PM EDT Images from the original note were not included. [facility] Consult Patient - Erin Pena Age - 67 y.o. - 1955 Referring physician: Kassidy Villasenor CNP, Dr. Abdi [...] He is retired. He previously worked at [employer]. He is an active smoker but actively [...] Consultation Amended Report Patient Name:ERIN PENA:1955 (Age: 67)Gender:MTaken:4Reported:4Physician(s):Kassidy Villasenor CNP ([phone])Copy To:ODETTE BAPTISTE MDAession #:[id number]. Rec. #:[id number]: #[id number] Amended Final Pathologic Diagnosis Lung, left lower [...] case was signed out, an oncology database software technician, Liliya Santana, notified me that the tumor should be located in left lower lobe. Report Electronically Signed Out rg/4Rbrianne Mendoza MD PFT Results: Radiology CT CHEST [...] appropriate clinical setting. Dr. Estefany Lang DO. [facility] Office: [phone] documented in this encounterCleveland Clinic Luther[facility] Hospital08-08-2024 History of Present illness Narrative* Gerald Abdi MD - 10/13/2023 3:30 PM EDT Images from the original note were not included. [facility] 10/13/23 Erin Pena is a 67 y.o. [...] Resource Strain: Low Risk (04/19/2023) [facility] Overall Financial Resource Strain (CARDIA) Difficulty of [...] (04/19/2023) Received from [facility] [place] [facility] - Occupational Stress Questionnaire Feeling of Stress : Patient declined Social Connections: Unknown (04/19/2023) Received from [facility] Social Connection and Isolation Panel [NHANES] Frequency of Communication with Friends and Family: Three times a week Frequency of Social Gatherings with Friends and Family: Once a week Attends Temple Services: More than 4 times per year [...] Refills: 0 Dose: 850 mg Signed by: Kassidy Villasenor, CANDLES POURER-PADDING MACHINE OPERATOR 850 mg, oral, Daily after lunch Commonly [...] to as low as reasonably achievable. Workst ation:[id number] Finalized by Eh Lorenz on 09/28/2023 9:29 [...] personally called to Dr. Monroy in the [facility] on 09/27/2023 at 5:50 PM. Finalized [...] this note were generated using voice recognition M*Modal dictation software. Although every effort was made to ensure the accuracy of this automated manager core, some errors in manager core may have occurred. CC: Patient Care Team: Dick Miranda MD as PCP - General (Family Medicine) Donald Ochoa MD as Surgeon (Vascular Surgery) PCP:DICK MIRANDA Referring MD: Kassidy Villasenor APRN* documented in this encounterDetwiler Memorial HospitalC-nario [facility] [id number] Instructions* Patient Instructions* Gerald Abdi MD - 10/13/2023 3:30 PM EDT PET jesus. PFT test Might need thoracic surgery referral. . F/u in 4 weeks. documented in this encounterCleveland Clinic Luther[facility] Hospital07-29-2024 History of Present illness Narrative* Olegario Moreira MD - 10/03/2023 1:00 PM EDT Images from the original note were not included. [facility] [place] [address] [facility] [phone] Subjective: Patient ID: Erin Pena is a [...] understanding. Olegario Moreira MD documented in this encounterCleveland Clinic Luther[facility] Hospital04-22-2024 History of Present illness Narrative* Olegario Moreira MD - 06/27/2023 9:45 AM EDT Images from the original note were not included. 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 Olegario Moreira MD documented in this encounterCleveland Clinic Luther[facility] Hospital04-01-2024 Miscellaneous Notes* Telephone Encounter - Marco AntonioLeona MA - 11/15/2023 3:41 PM EDT Patient coming in Tuesday11/16/23 for follow up treatment. Please add lab orders. Thanks. Leona Bernard MA documented in this encounterOhio Valley Hospital02-14-2024 History of Present illness Narrative* Dick Miranda MD - 04/20/2023 12:13 PM ESTAssociated Problem(s): Hypothyroidism, postradioiodine therapy (CMS/HCC) Medication adjusted and repeat labs next month. * Dick Miranda MD - 04/20/2023 12:13 PM ESTAssociated Problem(s): PAD (peripheral artery disease) (CMS/HCC) Symptoms stable and follow up with vascular. * Dick Miranda MD - 04/20/2023 12:13 PM ESTAssociated Problem(s): Essential hypertension ([facility]/HCC) BP controlled and monitor PRN. * Dick [...] 11:30 AM EST Subjective Patient ID: Erin Pena is a 67 y.o. male who [...] activity and walk regularly. documented in [facility]* Diagnosis Essential hypertension (CMS/HCC)- Primary Unspecified essential hypertension Degenerative lumbar spinal stenosis Spinal stenosis of lumbar region DDD (degenerative disc disease), cervical Degeneration of cervical intervertebral disc Benign prostatic hyperplasia with urinary hesitancy PAD (peripheral artery disease) (CMS/HCC) Unspecified peripheral vascular disease Hypothyroidism, postradioiodine therapy (CMS/HCC) documented in this encounter [facility] Healthcare[facility]* Diagnosis Malignant neoplasm of upper lobe of left lung (HCC)- Primary documented in this encounter [facility]Eval[facility]* Diagnosis Lung nodule- Primary Solitary pulmonary nodule Lung nodule Solitary pulmonary nodule documented in this encounter [facility]* Diagnosis Malignant neoplasm of upper lobe of left lung (HCC)- Primary Lung nodule Solitary pulmonary nodule documented in this encounter [facility]* Diagnosis Pre-op exam- Primary Preoperative examination, unspecified Lung nodule Solitary pulmonary nodule Lung nodule Solitary pulmonary nodule documented in this encounter [facility]* Diagnosis Pre-op evaluation- Primary Preoperative examination, [...] 1.9L/ DLCO 106 documented in this encounter [facility] note* Diagnosis Pre-op evaluation- Primary Preoperative [...] vascular disease, unspecified documented in this encounter [facility] note* Diagnosis Pre-op evaluation- Primary Preoperative [...] lung (HCC)- Primary documented in this encounter [facility] note* Diagnosis Pre-op evaluation- Primary Preoperative [...] bronchus or lung [facility]* Diagnosis Pre-op evaluation- Primary Preoperative examination, [...] bronchus or lung documented in this encounter [facility] note* Diagnosis Pre-op evaluation- Primary Preoperative [...] malaise and fatigue documented [facility] this encounter [facility]* Diagnosis Pre-op evaluation- Primary Preoperative examination, [...] lung (HCC)- Primary documented in this encounter [facility] note* Diagnosis Pre-op evaluation- Primary Preoperative [...] lung (HCC)- Primary documented [facility] this encounter [facility]* Diagnosis Pre-op evaluation- Primary Preoperative examination, [...] lung (HCC)- Primary documented in this encounter [facility] note* Diagnosis Pre-op evaluation- Primary Preoperative [...] left lung (HCC) documented in this encounter [facility] note* Diagnosis Pre-op evaluation- Primary Preoperative [...] lung (HCC)- Primary documented in this encounter [facility]* Diagnosis Pre-op evaluation- Primary Preoperative examination, [...] (HCC)- Primary Immunotherapy documented [facility] this encounter [facility]* Diagnosis Essential hypertension (CMS/HCC)- Primary Unspecified [...] cervical intervertebral disc [facility]* Diagnosis Pre-op evaluation- Primary Preoperative examination, [...] Anxiety state, unspecified documented in this encounter [facility]* Diagnosis Pre-op evaluation- Primary Preoperative examination, [...] lung (HCC)- Primary [facility]* Diagnosis Pre-op evaluation- Primary Preoperative examination, [...] of lung (HCC) documented in this encounter [facility]* Diagnosis Pre-op evaluation- Primary Preoperative examination, [...] lung (HCC)- Primary [facility] encounter [facility]* Diagnosis Essential hypertension (CMS/HCC)- Primary Unspecified [...] or maintaining sleep [facility]* Diagnosis Essential hypertension (CMS/HCC)- Primary [...] tendon, subsequent encounter documented in [facility] encounter [facility]* Diagnosis Essential hypertension (CMS/HCC)- Primary [...] postradioiodine therapy (CMS/HCC) [facility] Diagnosis Pre-op evaluation- Primary Preoperative examination, [...] malaise and fatigue [facility] encounter [facility]* Diagnosis Pre-op evaluation- Primary Preoperative examination, [...] Preoperative examination, unspecified documented [facility] encounter [facility]* Diagnosis DDD (degenerative disc disease), cervical Degeneration of cervical intervertebral disc documented in this encounter [facility]* Diagnosis Pre-op evaluation- Primary [...] Preoperative examination, unspecified documented [facility]* Diagnosis Essential hypertension (CMS/HCC)- Primary Unspecified essential hypertension Degenerative lumbar spinal stenosis Spinal stenosis of lumbar region DDD (degenerative disc disease), cervical Degeneration of cervical intervertebral disc Benign prostatic hyperplasia with urinary hesitancy PAD (peripheral artery disease) ([facility]/HCC) Unspecified peripheral vascular disease Hypothyroidism, postradioiodine therapy (CMS/HCC) Trochanteric bursitis of right hip- Primary TIA (transient ischemic attack)- Primary Unspecified transient cerebral ischemia 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) KIKO (generalized anxiety disorder) ([facility]/HCC) Generalized anxiety disorder Unsteady Abnormality of gait 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)- Primary PAD (peripheral artery disease) ([facility]/HCC) Unspecified peripheral vascular disease 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) Primary insomnia Persistent disorder of initiating or maintaining sleep Essential hypertension (CMS/HCC)- Primary Unspecified essential hypertension 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) Chronic obstructive pulmonary disease, unspecified COPD type ([facility]) Encounter for long-term (current) use of medications Encounter for long-term (current) use of other medications PAD (peripheral artery disease) ([facility]/HCC) Unspecified peripheral vascular disease DDD (degenerative disc disease), cervical Degeneration of cervical intervertebral disc Hypothyroidism, postradioiodine therapy ([facility]/HCC) DDD (degenerative disc disease), cervical Degeneration of cervical intervertebral disc documented in this encounter [facility] HealthcareEvaluation note* Diagnosis DDD (degenerative disc disease), cervical- Primary Degeneration of cervical intervertebral disc Primary insomnia Persistent disorder of initiating or maintaining sleep documented in this encounter [facility]Evaluation note* Diagnosis Pre-op evaluation- Primary [...] laterality, unspecified part of lung (HCC)- Primary Abnormal blood chemistry Other abnormal blood chemistry documented [facility] encounter [facility]* Diagnosis Occlusive disease, arterial- Primary Embolism and thrombosis of unspecified artery Right internal carotid occlusion Malignant neoplasm of upper lobe of left lung ([facility]-HCC) [facility] Diagnosis Essential hypertension- Primary Unspecified essential hypertension Malignant neoplasm of upper lobe of left lung ([facility]-HCC) Mixed hyperlipidemia [facility]* Diagnosis Essential hypertension Unspecified essential hypertension Bilateral carotid artery stenosis Occlusion and stenosis of carotid artery without mention of cerebral infarction Occlusive disease, arterial Embolism and thrombosis of unspecified artery [facility]* Diagnosis Essential hypertension ([facility]/HCC)- Primary Unspecified essential hypertension Degenerative lumbar spinal stenosis Spinal stenosis of lumbar region DDD (degenerative disc disease), cervical Degeneration of cervical intervertebral disc Benign prostatic hyperplasia with urinary hesitancy PAD (peripheral artery disease) ([facility]/HCC) Unspecified peripheral vascular disease Hypothyroidism, postradioiodine therapy (CMS/HCC) Trochanteric bursitis of right hip- Primary TIA (transient ischemic attack)- Primary Unspecified transient cerebral ischemia 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) KIKO (generalized anxiety disorder) ([facility]/HCC) Generalized anxiety disorder Unsteady Abnormality of gait 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)- Primary PAD (peripheral artery disease) ([facility]/HCC) Unspecified peripheral vascular disease 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) Primary insomnia Persistent disorder of initiating or maintaining sleep Essential hypertension (CMS/HCC)- Primary Unspecified essential hypertension 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) Chronic obstructive pulmonary disease, unspecified COPD type ([facility]) Encounter for long-term (current) use of medications Encounter for long-term (current) use of other medications PAD (peripheral artery disease) ([facility]/HCC) Unspecified peripheral vascular disease DDD (degenerative disc disease), cervical Degeneration of cervical intervertebral disc Hypothyroidism, postradioiodine therapy (CMS/HCC) Trochanteric bursitis of right hip- Primary Right hip pain Pain in joint, pelvic region and thigh [facility]* Diagnosis Pre-op evaluation- Primary Preoperative examination, [...] condition classified elsewhere documented [facility] this encounter [facility]* Diagnosis Pre-op evaluation- Primary Preoperative examination, [...] left lung (HCC) documented [facility] this encounter [facility]* Diagnosis Pre-op evaluation- Primary Preoperative examination, [...] malaise and fatigue [facility] encounter [facility]* Diagnosis Pre-op evaluation- Primary Preoperative examination, [...] malaise and fatigue documented in this encounter [facility]* Diagnosis Right internal carotid occlusion- Primary Occlusive disease, arterial Embolism and thrombosis of unspecified artery [facility] Essential hypertension Unspecified essential hypertension Bilateral carotid artery stenosis Occlusion and stenosis of carotid artery without mention of cerebral infarction Occlusive disease, arterial Embolism and thrombosis of unspecified artery [facility] Diagnosis Essential hypertension (CMS/HCC)- Primary [...] of other medications PAD (peripheral artery disease) ([facility]) Unspecified peripheral vascular disease DDD (degenerative disc disease), cervical Degeneration of cervical intervertebral disc Hypothyroidism, postradioiodine therapy ([facility]) Medicare annual wellness visit, subsequent- Primary Seborrheic dermatitis Unspecified seborrheic dermatitis 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 ([facility]) Chronic obstructive pulmonary disease, unspecified COPD type ([facility]) documented in this encounter [facility] HealthcareEvaluation [facility]* Diagnosis Bilateral carotid artery stenosis- Primary Occlusion and stenosis of carotid artery without mention of cerebral infarction PAD (peripheral artery disease) [place] Unspecified peripheral vascular disease [facility] Diagnosis Occlusive disease, arterial- Primary Embolism and thrombosis of unspecified artery Right internal carotid occlusion Bilateral carotid artery stenosis Occlusion and stenosis of carotid artery without mention of cerebral infarction Atheroembolism of bilateral lower extremities [place] [facility] Diagnosis Squamous carcinoma of lung, left ([facility])- Primary Lung mass Swelling, mass, or lump in chest documented [facility] Diagnosis Chronic obstructive pulmonary disease, unspecified COPD type ([facility])- Primary Lung mass Swelling, mass, or lump in chest [facility] Diagnosis Essential hypertension- Primary Unspecified essential hypertension Bilateral carotid artery stenosis Occlusion and stenosis of carotid artery without mention of cerebral infarction Occlusive disease, arterial Embolism and thrombosis of unspecified artery [facility] Diagnosis Essential hypertension ([facility])- Primary Unspecified essential hypertension Degenerative lumbar spinal stenosis Spinal stenosis of lumbar region DDD (degenerative disc disease), cervical Degeneration of cervical intervertebral disc Benign prostatic hyperplasia with urinary hesitancy PAD (peripheral artery disease) ([facility]) Unspecified peripheral vascular disease Hypothyroidism, postradioiodine therapy ([facility]) Trochanteric bursitis of right hip- Primary TIA (transient ischemic attack)- Primary Unspecified transient cerebral ischemia 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 ([facility]) KIKO (generalized anxiety disorder) ([facility]) Generalized anxiety disorder Unsteady Abnormality of gait [...] obstructive pulmonary disease, unspecified COPD type (CMS/HCC) Impingement syndrome of right shoulder- Primary Acute pain of right shoulder Acute pain of left shoulder Impingement syndrome of left shoulder [facility] Diagnosis Pre-op evaluation- Primary Preoperative examination, [...] and myositis, unspecified [facility] Pre-op evaluation- Primary Preoperative examination, [...] and myositis, unspecified [facility] Diagnosis Pre-op evaluation- Primary Preoperative examination, [...] lung (HCC)- Primary [facility] Diagnosis Pre-op evaluation- Primary Preoperative examination, [...] lung (HCC)- Primary documented in this encounter [facility] note* Diagnosis Pre-op evaluation- Primary Preoperative [...] (ADHD), combined type documented in this encounter [facility] note* Diagnosis Pre-op evaluation- Primary Preoperative [...] lung (HCC)- Primary [facility] Diagnosis Pre-op evaluation- Primary Preoperative examination, [...] lung (HCC)- Primary [facility]* Diagnosis Essential hypertension (CMS/HCC)- Primary Unspecified [...] left lung (CMS/HCC) KIKO (generalized anxiety disorder) ([facility]/HCC) Generalized anxiety disorder Unsteady Abnormality of gait 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)- Primary PAD (peripheral artery disease) (CMS/HCC) Unspecified peripheral vascular disease 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) Primary insomnia Persistent disorder of initiating or maintaining sleep Essential hypertension (CMS/HCC)- Primary Unspecified essential hypertension Chemotherapy-induced neuropathy (CMS/HCC) Chronic obstructive pulmonary disease, unspecified COPD type ([facility]/HCC) Encounter for long-term (current) use of medications Encounter for long-term (current) use of other medications PAD (peripheral artery disease) (CMS/HCC) Unspecified peripheral vascular disease DDD (degenerative disc disease), cervical Degeneration of cervical intervertebral disc Hypothyroidism, postradioiodine therapy ([facility]/HCC) Medicare annual wellness visit, subsequent- Primary Seborrheic dermatitis Unspecified seborrheic dermatitis 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 Diagnosis Pre-op evaluation- Primary Preoperative examination, [...] left lung (HCC) [facility]* Diagnosis Pre-op evaluation- Primary Preoperative examination, [...] specification of site [facility]* Diagnosis Pre-op evaluation- Primary Preoperative examination, [...] lung (HCC)- Primary [facility]* Diagnosis Pre-op evaluation- Primary Preoperative examination, [...] lung (HCC)- Primary [facility] Diagnosis Essential hypertension ([facility])- Primary Unspecified essential hypertension Degenerative lumbar spinal stenosis Spinal stenosis of lumbar region DDD (degenerative disc disease), cervical Degeneration of cervical intervertebral disc Benign prostatic hyperplasia with urinary hesitancy PAD (peripheral artery disease) (CMS/HCC) Unspecified peripheral vascular disease Hypothyroidism, postradioiodine therapy ([facility]/HCC) Trochanteric bursitis of right hip- Primary TIA (transient ischemic attack)- Primary Unspecified transient cerebral ischemia 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) KIKO (generalized anxiety disorder) ([facility]) Generalized anxiety disorder Unsteady Abnormality of gait 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 ([facility]/HCC)- Primary PAD (peripheral artery disease) (CMS/HCC) Unspecified peripheral vascular disease 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) Primary insomnia Persistent disorder of initiating or maintaining sleep Essential hypertension ([facility]/HCC)- Primary Unspecified essential hypertension 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) Chronic obstructive pulmonary disease, unspecified COPD type ([facility]/HCC) Encounter for long-term (current) use of medications Encounter for long-term (current) use of other medications PAD (peripheral artery disease) ([facility]/HCC) Unspecified peripheral vascular disease DDD (degenerative disc disease), cervical Degeneration of cervical intervertebral disc Hypothyroidism, postradioiodine therapy ([facility]/HCC) Medicare annual wellness visit, subsequent- Primary Seborrheic dermatitis Unspecified seborrheic dermatitis 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) Chronic obstructive pulmonary disease, unspecified COPD type ([facility]/HCC) DDD (degenerative disc disease), cervical Degeneration of cervical intervertebral disc documented in this encounter [facility] HealthcareEvaluation note* Diagnosis Pre-op evaluation- Primary [...] lung (HCC)- Primary [facility]* Diagnosis Pre-op evaluation- Primary Preoperative examination, [...] (ADHD), combined type documented in this encounter [facility] note* Diagnosis Essential hypertension (CMS/HCC)- Primary Unspecified [...] (CMS/HCC) Unspecified peripheral vascular disease 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) Primary insomnia Persistent disorder of initiating or maintaining sleep Essential hypertension (CMS/HCC)- Primary Unspecified essential hypertension Chemotherapy-induced neuropathy (CMS/HCC) Chronic obstructive pulmonary disease, unspecified COPD type ([facility]/HCC) Encounter for long-term (current) use of medications Encounter for long-term (current) use of other medications PAD (peripheral artery disease) (CMS/HCC) Unspecified peripheral vascular disease DDD (degenerative disc disease), cervical Degeneration of cervical intervertebral disc Hypothyroidism, postradioiodine therapy ([facility]/HCC) Medicare annual wellness visit, subsequent- Primary Seborrheic dermatitis Unspecified seborrheic dermatitis 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) Chronic obstructive pulmonary disease, unspecified COPD type (CMS/HCC) Chemotherapy-induced neuropathy (CMS/HCC) [facility] Diagnosis Pre-op evaluation- Primary Preoperative examination, [...] lung (HCC)- Primary [facility] Diagnosis Pre-op evaluation- Primary Preoperative examination, [...] Syncope and collapse [facility] Pre-op evaluation- Primary Preoperative [...] Syncope and collapse [facility] Diagnosis Pre-op evaluation- Primary Preoperative [...] unspecified headache type [facility]* Diagnosis Pre-op evaluation- Primary Preoperative examination, [...] disorders of thyroid [facility]* Diagnosis Internal carotid artery stenosis, bilateral Occlusive disease, arterial Embolism and thrombosis of unspecified artery Atheroembolism of bilateral lower extremities (CMS-HCC) [facility] Diagnosis Pre-op evaluation- Primary Preoperative [...] unspecified headache type [facility]* Diagnosis Essential hypertension (CMS/HCC)- Primary Unspecified essential hypertension Degenerative lumbar spinal stenosis Spinal stenosis of lumbar region DDD (degenerative disc disease), cervical Degeneration of cervical intervertebral disc Benign prostatic hyperplasia with urinary hesitancy PAD (peripheral artery disease) ([facility]) Unspecified peripheral vascular disease Hypothyroidism, postradioiodine therapy ([facility]) Trochanteric bursitis of right hip- Primary TIA (transient ischemic attack)- Primary Unspecified transient cerebral ischemia 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 ([facility]) KIKO (generalized anxiety disorder) ([facility]) Generalized anxiety disorder Unsteady Abnormality of gait 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 ([facility])- Primary PAD (peripheral artery disease) ([facility]) Unspecified peripheral vascular disease Chemotherapy-induced neuropathy ([facility]) Primary insomnia Persistent disorder of initiating or maintaining sleep Essential hypertension ([facility])- Primary Unspecified essential hypertension Chemotherapy-induced neuropathy ([facility]) Chronic obstructive pulmonary disease, unspecified COPD type ([facility]) Encounter for long-term (current) use of medications Encounter for long-term (current) use of other medications PAD (peripheral artery disease) ([facility]) Unspecified peripheral vascular disease DDD (degenerative disc disease), cervical Degeneration of cervical intervertebral disc Hypothyroidism, postradioiodine therapy ([facility]) Medicare annual wellness visit, subsequent- Primary Seborrheic dermatitis Unspecified seborrheic dermatitis 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 ([facility]) Chronic obstructive pulmonary disease, unspecified COPD type ([facility]) DDD (degenerative disc disease), cervical Degeneration of cervical intervertebral disc [facility] Diagnosis Pre-op evaluation- Primary Preoperative examination, unspecified Chronic obstructive pulmonary disease, unspecified COPD type ([facility]) Cigarette smoker Tobacco use disorder Hypothyroidism, postradioiodine [...] lung (HCC)- Primary [facility] Diagnosis Essential hypertension- Primary Unspecified essential [...] right hip- Primary documented in this encounter [facility] note* Diagnosis Essential hypertension- Primary [...] right hip- Primary documented in this encounter [facility] note* Diagnosis Essential hypertension- Primary [...] cervical intervertebral disc documented in this encounter [facility] note* Diagnosis Pre-op evaluation- Primary [...] malaise and fatigue [facility] Diagnosis Essential hypertension- Primary Unspecified essential [...] right hip- Primary documented in this encounter [facility]Evaluation note* Diagnosis Essential hypertension- Primary Unspecified [...] right hip- Primary documented in this encounter [facility] note* Diagnosis Essential hypertension- Primary Unspecified essential hypertension [facility] Diagnosis Essential hypertension- Primary Unspecified [...] right hip- Primary documented in this encounter [facility] Healthcare[facility] note* Diagnosis Essential hypertension- Primary [...] right hip- Primary documented in this encounter [facility] HealthcareEvaluation note* Diagnosis Essential hypertension Unspecified essential hypertension Bilateral carotid artery stenosis Occlusion and stenosis of carotid artery without mention of cerebral infarction Occlusive disease, arterial Embolism and thrombosis of unspecified artery [facility] Diagnosis Essential hypertension- Primary Unspecified [...] of right hip documented in this encounter [facility] HealthcareEvaluation note* Diagnosis Essential hypertension- Primary Unspecified [...] right hip- Primary documented in this encounter [facility] HealthcareEvaluation note* Diagnosis Essential hypertension- Primary Unspecified [...] right hip- Primary [facility] Diagnosis Pre-op evaluation- Primary Preoperative examination, [...] Shortness of breath [facility] Diagnosis Pre-op evaluation- Primary Preoperative examination, [...] Shortness of breath [facility] Diagnosis Pre-op evaluation- Primary Preoperative examination, [...] treatment for malignant neoplasm Unspecified follow-up examination alf (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 [facility]* Diagnosis Pre-op evaluation- Primary Preoperative examination, [...] abnormal blood chemistry [facility] Author Clarence Stevens [facility] CenterNote Date/TimeAugust 2024 8:51[place] [address] Hospitalist H&P Signed Patient: Erin Pena MR#: [id number] : 1955 Acct:[id number] Age/Sex: 68 / M Adm Date: 5 Loc: 3T Room: [address] [place] [address] Type: ADM IN Attending Dr: Clarence Stevens [...] mg will be continued for diabetes mellitus [facility] Medical History Lung cancer History of gastric ulcer 1975 Problem List clean-up per [facility] Phys[facility] Problem List clean-up per request of Phys. [facility] Hyperlipidemia Problem List clean-up per request of Phys. [facility] Hypertension Problem List clean-up per request of Phys. [facility] Hypothyroidism Problem List clean-up per request of Phys. 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 Problem List clean-up per request of Phys. EHR Cmte BCC (basal cell carcinoma), face Excision of same Problem List clean-up per request of Phys. [facility] Surgical History History of appendectomy Problem List clean-up per request of Phys. [facility] History of craniotomy 2015- Middle fossa craniotomy ; encephalocele, CSF leak; titanium plate head. Problem List clean-up per request of Phys. [facility] History of phacoemulsification of cataract of both [...] PO DAILY hypothyroidism 11/02/19 [History Confirmed 10/27/24] clehbjyp-uw-tugrg 300 mcg-K 60 mcg-lycop 600 mcg-lutein 300 [...] % (Auto) 18.3 % (.) 10/27/24 14:17 Lake % (Auto) 6.8 % (.) 10/27/24 14:17 Eos % (Auto) 11.7 % (.) 10/27/24 14:17 Baso % (Auto) 0.5 % (.) 10/27/24 14:17 Nucleat RBC Rel Count 0.2 /100 WBC (0-0.5) 10/27/24 14:17 Neut # (Auto) 6.1 x10E3/uL (1.8-7.7) 10/27/24 14:17 Lymph # (Auto) 1.8 x10E3/uL (1.00-4.8) 10/27/24 14:17 Lake # (Auto) 0.7 x10E3/uL (0.0-0.8) 10/27/24 14:17 [...] <Electronically signed by Clarence Stevens DO> 10/27/242050 [facility] Work Phone: InstructionsNot on filedocumented in this [...] sent through Care Everywhere. * Endobronchial Ultrasound (Portuguese) documented [facility]ructionsNot on file documented in this encounterProMedica Health SystemInstructionsNot on file documented in this encounterProMedica Health SystemInstructionsNot on file documented in this encounterPro[facility] SystemInstructionsNot on file documented in this encounterProMedica Health SystemInstructionsNot on file documented in this encounterProMedica Health SystemReason for referral (narrative)* Outpatient Procedure (Routine) - New RequestSpecialtyDiagnoses / ProceduresReferred By ContactReferred To [facility] Diagnoses Lung nodule Procedures ECG COMPLETE ECG ROUTINE ECG W/LEAST 12 LDS W/I&R Hugh Craig MD [id number] [facility] [address] [place] [address] Referral IDStatusReasonStart DateExpiration DateVisits RequestedVisits [id number] Request Auto-Generated Referral / [facility] for referral (narrative)* Outpatient Procedure (Routine) - New RequestSpecialtyDiagnoses / ProceduresReferred By ContactReferred [facility] Diagnoses Preoperative testing Procedures SPIROMETRY BASELINE ONLY SPMTRY W/VC EXPIRATORY PAWAN W/[place] [address] [place] [address] [address] Referral IDStatusReasonStart DateExpiration DateVisits RequestedVisits [id number] Request Auto-Generated Referral * Outpatient Procedure (Routine) - New RequestSpecialtyDiagnoses / Procedures Referred By ContactReferred To [facility] Diagnoses Preoperative testing Procedures LUNG DIFFUSION CAPACITY (DLCO) [place] [address] [place] [address] [address] Referral IDStatusReasonStperryville DateExpiration DateVisits RequestedVisits [id number] Request Auto-Generated Referral * Outpatient Procedure (Routine) - New RequestSpecialtyDiagnoses / Procedures Referred By ContactReferred To [facility] Diagnoses Preoperative cardiovascular examination Procedures ECHO ECHO TTHRC R-T 2D W/WOM-MODE COMPL SPEC&[place] [address] [place] [address] [address] [address] Referral IDStatusReasonStperryville DateExpiration DateVisits RequestedVisits [id number] Request Auto-Generated Referral * Outpatient Procedure (Routine) - New RequestSpecialtyDiagnoses / Procedures Referred By ContactReferred To [facility] Diagnoses Preoperative testing Procedures SIX MINUTE WALK CARDIOPULMONARY [place] [address] [address] [id number] Respiratory [place] [address] [place] [address] Ref[facility] DateExpiration DateVisits RequestedVisits [id number] Request Auto-Generated Referral * Diagnostic Procedure Only (Routine) - New RequestSpecialtyDiagnoses / ProceduresReferred By ContactReferred To ContactMOLECULAR & FUNCTIONAL IMAGING Diagnoses Preoperative testing Encounter for preoperative vascular examination Procedures NM LUNG QUANT PERFUSION QUANT DIFFERENTIAL PULM PERFUSION W/[place] [address] [place] [address] Molecular & Functional Imaging [address] [place] [address] Referral IDStatilluminate SolutionsRappahannock General Hospital DateExpiration DateVisits RequestedVisits [id number] Request Auto-Generated Referral * Diagnostic Procedure Only (Routine) - New RequestSpecialtyDiagnoses / ProceduresReferred By ContactReferred To ContactMOLECULAR & FUNCTIONAL IMAGING Diagnoses Preoperative cardiovascular examination Procedures NM CARDIAC PERF STRESS/PHARM MYOCARDIAL SPECT [place] [address] [place] [address] Molecular & Functional Imaging [address] [place] [address] Referral IDStatHolzer Hospital DateExpiration DateVisits RequestedVisits [id number] Request Auto-Generated Referral * Consult, Test, Treat (Routine) - AuthorizedSpecialtyDiagnoses / Procedures Referred By ContactReferred To ContactRadiation Oncology Diagnoses Malignant neoplasm of upper lobe of left lung (HCC) Procedures RAD/ONC CONSULT OFFICE/OUTPATIENT NEW HIGH MDM 60 [place] [address] [place] [address] Josh Pollard MD [address] [place] [address] [address] [place] [phone] Referral IDStatusReasonStart DateExpiration DateVisits RequestedVisits [id number] PCP Requested Referral [facility] for referral (narrative)* Diagnostic Procedure Only (Routine) - AuthorizedSpecialtyDiagnoses / ProceduresReferred By Contact Referred To ContactMOLECULAR & FUNCTIONAL IMAGING Diagnoses Malignant neoplasm of unspecified part of unspecified bronchus or lung (HCC) Procedures NM PET/CT SKULL-THIGH SUBSEQUENT PET IMAGING CT ATTENUATION SKULL BASE MID-THIGH Jack Hoang MD [address] [place] [address] [address] [place] [phone] Molecular & Functional Imaging [address] [place] [address] Referral IDStatusReasonStart DateExpiration DateVisits RequestedVisits [id number] Auto-Generated Referral [facility] for referral (narrative)* Diagnostic Procedure Only (Routine) - ClosedSpecialtyDiagnoses / ProceduresReferred By ContactReferred To ContactMOLECULAR & FUNCTIONAL IMAGING Diagnoses Malignant neoplasm of unspecified part of unspecified bronchus or lung (HCC) Procedures NM PET/CT SKULL-THIGH SUBSEQUENT PET IMAGING CT ATTENUATION SKULL BASE MID-THIGH Jack Hoang MD [address] [place] [address] [address] [place] [phone] Molecular & Functional Imaging [address] [place] [address] Referral IDStatusReasonStart DateExpiration DateVisits RequestedVisits [id number] Auto-Generated Referral [facility] for referral (narrative)No reason for referral information availableProvidence Hospital Ctr Work Phone: Reason for visit Narrative* Outpatient Procedure (Routine) - ClosedSpecialtyDiagnoses / ProceduresReferred By ContactReferred To ContactREGENCY [facility] Diagnoses Lung nodule Procedures ECG COMPLETE ECG ROUTINE ECG W/LEAST 12 LDS W/I&R Hugh Craig MD [address] [place] [address] Heart And Vascular [facility] [place] [address] Referral IDStatusReasonStart DateExpiration DateVisits RequestedVisits [id number] Auto-Generated Referral [facility] for visit Narrative* Chromo Prior Authorization (Routine) - AuthorizedSpecialtyDiagnoses / ProceduresReferred By ContactReferred To Contact Diagnoses Malignant neoplasm of upper lobe of left lung (HCC) Procedures INJECTION, NIVOLUMAB Lo Hancock MD [address] [facility] [place] [address] Phone: tel: fax: Hematology/Oncology [address] [place] [address] [place] [address] Phone: tel: fax: Referral IDStatusReasonStart DateExpiration DateVisits RequestedVisits [id number]/25/20258/12/202566 [facility] for visit Narrative* Rehabilitation - Outpatient (Routine) - AuthorizedSpecialtyDiagnoses / ProceduresReferred By Contact Referred To ContactPhysical Therapy Diagnoses Trochanteric bursitis, right hip Procedures NM PHYSICAL THERAPY EVALUATION LOW COMPLEX 20 MINS NM OFFICE/OUTPATIENT NEW HIGH MDM 60 MINUTES Sergio Boogie PA fax: [facility] [address] [place] [address] Phone: tel: fax: Referral IDStatusReasonStart DateExpiration DateVisits RequestedVisits [id number]/8/20259/5/202566 [facility] HealthcareReason for visit Narrative* Rehabilitation - Outpatient (Routine) - ClosedSpecialtyDiagnoses / ProceduresReferred By ContactReferred To Contact Physical Therapy Diagnoses Trochanteric bursitis, right hip Procedures NM PHYSICAL THERAPY EVALUATION LOW COMPLEX 20 MINS NM OFFICE/OUTPATIENT NEW HIGH MDM 60 MINUTES Sergio Boogie PA fax: [facility] Physical Therapy [address] [facility] [address] [place] [address] Phone: tel: fax: Referral IDStatusReasonStart DateExpiration DateVisits RequestedVisits [id number]/8/20259/5/202566 [facility] HealthcareReason for visit Narrative* Rehabilitation - Outpatient (Routine) - AuthorizedSpecialtyDiagnoses / ProceduresReferred By ContactReferred To ContactPhysical Therapy Diagnoses Trochanteric bursitis, right hip Procedures NM PHYSICAL THERAPY EVALUATION LOW COMPLEX 20 MINS NM OFFICE/OUTPATIENT NEW HIGH MDM 60 MINUTES Sergio Boogie PA fax: [facility] [address] [facility] [address] [place] [address] Phone: tel: fax: Referral IDStatusReasonStart DateExpiration DateVisits RequestedVisits [id number] Consult and Treat [facility] Healthcare Summary Purpose Family History No [...] 3:40 PMAdvance Directives- Health Carer Power of Machine Carton Marker and Living WillTypeDate Recorded Patient RepresentativeExplanationAdvance Directive(s)11/16/2023 3:40 PMAdvance Directives- Health Carer Power of Machine Carton Marker and Living WillDate ActivatedDate InactivatedComments09/27/2023 6:42 PM09/29/2023 [...] 48pm Squamous cell lung cancer October 27, 025 6:48pm Chief Complaint Admit Date Amb Documentation August 31, 2024 1:27 pm fluids on lungs October 27, 2024 6: 48pm Established Patient November 21, 2024 1:30pm Reason for Visit Admit Date Pleural effusion October 27, 2024 6: 48pm Squamous cell lung cancer October 27 025 6:48pm Atypical chest pain October 27, [...] CONSULT TO CARDIOTHORACIC SURGERY Lo Hancock MD [address] [place] [address] [place] [address] Referral IDStatusReasonStart DateExpiration DateVisits RequestedVisits [id number] Not Required PCP Requested Referral [id number] / ProceduresReferred By ContactReferred To ContactCardiology Diagnoses Chest pain, unspecified type Procedures CONSULT TO CARDIOLOGY OFFICE/OUTPATIENT [facility] 60 MINUTES Nancy Elizondo, CANDLES POURER.PADDING MACHINE OPERATOR [address] [place] [address] Referral IDStatusReasonStart DateExpiration DateVisits RequestedVisits [id number] PCP Requested Referral [id number] / ProceduresReferred By ContactReferred To ContactPulmonary and Critical Care Medicine Diagnoses Chronic obstructive pulmonary disease, unspecified COPD type (HCC) Procedures CONSULT TO PULM/CRITICAL CARE OFFICE/OUTPATIENT [facility] 60 MINUTES Nancy Elizondo, CANDLES POURER.PADDING MACHINE OPERATOR [address] [phone] Referral IDStatusReasonStart DateExpiration DateVisits RequestedVisits [id number] PCP Requested Referral [id number] / ProceduresReferred By ContactReferred To ContactNeurology Diagnoses TIA (transient ischemic attack) Procedures CONSULT TO NEUROLOGY OFFICE/OUTPATIENT [facility] 60 MINUTES Nancy Elizondo, CANDLES POURER.PADDING MACHINE OPERATOR [address] [phone] Referral IDStatusReasonStart DateExpiration DateVisits RequestedVisits [id number] PCP Requested Referral [id number] / ProceduresReferred By ContactReferred To Contact Diagnoses 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, bronchus, and lung (HCC) Malignant neoplasm of upper lobe of left lung (HCC) Procedures CONSULT TO PALLIATIVE CARE OFFICE/OUTPATIENT [facility] 60 MINUTES Lo Hancock MD [address] [place] [address] [place] [address] Referral IDStatusReasonStart DateExpiration DateVisits RequestedVisits [id number] PCP Requested Referral /[id number] / ProceduresReferred By ContactReferred To ContactCT IMAGING Diagnoses Malignant neoplasm of lung, unspecified laterality, unspecified part of lung (HCC) Malignant neoplasm of upper lobe of left lung (HCC) Procedures CT CHEST W IVCON DIAGNOSTIC COMPUTED TOMOGRAPHY THORAX W/CONTRAST Lo Hancock MD [address] [place] [address] [place] [address] Ct [facility] [place] [address] Referral IDStatusReasonStperryville DateExpiration DateVisits RequestedVisits [id number] Auto-Generated Referral [id number] / ProceduresReferred By ContactReferred To ContactCT IMAGING Diagnoses Malignant neoplasm of lung, unspecified laterality, unspecified part of lung (HCC) Malignant neoplasm of upper lobe of left lung (HCC) Procedures CT ABD/PEL W IVCON CT ABD & PELVIS W/CONTRAST Lo Hancock MD [address] [place] [address] [place] [address] [place] [address] Referral IDStatusReasonStart DateExpiration DateVisits RequestedVisits [id number] Auto-Generated Referral eferral IDStatusReasonStart DateExpiration DateVisits RequestedVisits [id number] Auto-Generated Referral 11/13/719657/22/481537Dhtlcwqo IDStatusReasonStart DateExpiration DateVisits RequestedVisits [id number] Auto-Generated Referral /[id number] / ProceduresReferred By ContactReferred To ContactRadiology Diagnoses Occlusive disease, arterial Procedures CT angiogram abdominal aorta with runoff Olegario Moreira MD [address] [place] [address] Referral IDStatusReasonStart DateExpiration DateVisits RequestedVisits [id number] Review/[id number] / ProceduresReferred By ContactReferred To Contact Diagnoses Occlusive disease, arterial Atheroembolism of bilateral lower extremities (CMS-HCC) Procedures Vas art doppler lwr bilat mult lev/PVR Olegario Moreira MD [address] [place] [address] Referral IDStatusReasonStart DateExpiration DateVisits RequestedVisits [id number] Review/ Additional Source Comments (unrecognized sect ion and content) No Status Records FoundNo Status Records FoundNo Status Records FoundNo Status Records FoundNo Status Records FoundNo Status Records FoundNo Status Records FoundNo Status Records FoundNo Status Records FoundNo Status Records FoundNo Status Records FoundNo Status Records FoundNo Status Records FoundNo Status Records Found INFORMATION SOURCE (unrecogn ized section and content) DATE CREATED AUTHOR 06/21/2018 [facility] DATE CREATED AUTHOR AUTHOR'S ORGANIZ ATION 06/27/2018 [facility] DATE CREATED AUTHOR AUTHOR'S ORGANIZ ATION 03/20/2019 [facility] DATE CREATED AUTHOR AUTHOR'S ORGANIZ ATION 01/29/2020 [facility] DATE CREATED AUTHOR AUTHOR'S ORGANIZ ATION 03/26/2020 [facility] DATE CREATED AUTHOR AUTHOR'S ORGANIZ ATION 10/11/2023 [facility] DATE CREATED AUTHOR AUTHOR'S ORGANIZ ATION 11/02/2023 [facility] DATE CREATED AUTHOR AUTHOR'S ORGANIZ ATION 06/09/2024 [facility] DATE CREATED AUTHOR AUTHOR'S ORGANIZ ATION 08/06/2024 [facility] DATE CREATED AUTHOR AUTHOR'S ORGANIZ ATION 09/28/2024 [facility] DATE CREATED AUTHOR AUTHOR'S ORGANIZ ATION 11/15/2024 [facility] DATE CREATED AUTHOR AUTHOR'S ORGANIZ ATION 11/25/2024 [facility] DATE CREATED AUTHOR AUTHOR'S ORGANIZ ATION 12/18/2024 [facility] DATE CREATED AUTHOR AUTHOR'S ORGANIZ ATION 01/04/2025 [facility] Reason for Visit (unrecogniz ed section [...] FOSAPREPITANT INJECTION PACLITAXEL INJECTION Lo Hancock MD [address] [place] [address] [place] [address] [facility] [place] [address] Referral IDStatusReasonStart DateExpiration DateVisits RequestedVisits [id number]/21/202410/25/273788YpkdgzPmxzhvceUnch CancerReason CommentsCare KofynjwkxljrF0T1 Post Treatment CallReasonCommentsCare Coordination Treatment Side EffectsReasonCommentsCare CoordinationDental QuestionReason CommentsLung CancerOTVReasonOnset DateCommentsMed Cvnuub864ReasonComments AnxietySpecialtyDiagnoses / ProceduresReferred By ContactReferred To Contact Diagnoses 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, bronchus, and lung (HCC) Malignant neoplasm of upper lobe of left lung (HCC) Procedures CONSULT TO PALLIATIVE CARE OFFICE/OUTPATIENT [facility] 60 MINUTES Lo Hancock MD [address] [place] [address] Referral IDStatusReasonStart DateExpiration DateVisits RequestedVisits [id number] PCP Requested Referral /[id number] CoordinationNumbness/Tingling; Lab RequestReferral IDStatusReasonStart DateExpiration DateVisits RequestedVisits [id number]/21/20242/462302ExvwjfKrsqjcjpDkkc CancerOTV ReasonCommentsPrescription RefillsReasonCommentsCare CoordinationMedication & Vaccine QuestionReasonCommentsLeg [...] & PELVIS W/CONTRAST Lo Hancock MD [address] [place] [address] [place] [address] Referral IDStatusReasonStart DateExpiration DateVisits RequestedVisits [id number] Auto-Generated Referral /[id number] CoordinationCT ResultsReasonComments Established PatientDiscuss CT ResultsReasonOnset DateCommentsMed Refill 4ReasonOnset DateCommentsMed Bcnzpm714ReasonCommentsCare CoordinationFatigue; Body AchesReasonOnset DateCommentsMed Owqzrd7310/27/2023 ReasonCommentsFollow-upExtremity PainPt c/o pain in bilateral calves with walking-states he can walk more than 11 feet without having tostop and rest ReasonCommentsNew PatientPre-op ExamNP REFERRAL PRE OP CLEARANCE DR SAVANAH OREILLY [facility] FAX [phone] TBD, MALIGNANTNEOPLASM OF UPPER LOBE OF LEFT LUNG, [facility] SEPTEMBER OF 2023, NO DEVICES, SCHED W/PT STRESS, ECHO FRESpecialtyDiagnoses / ProceduresReferred By ContactReferred To Contact Cardiology Diagnoses Malignant neoplasm of upper lobe of left lung (CMS-HCC) Olegario Moreira MD [address] [facility] [address] [place] [address] Phone: tel:[phone] fax: [facility] [address] [address] Phone: tel: fax: Referral IDStatusReasonStart DateExpiration DateVisits RequestedVisits [id number] Review Specialty Services Required [id number] RefillReasonCommentsFollow-upReason CommentsCare CoordinationTreatment DecisionReasonCommentsPalliative CareReason Onset DateCommentsMed Zferkb0904/02/2024SpecialtyDiagnoses / ProceduresReferred By ContactReferred To ContactRadiation Oncology Diagnoses Malignant neoplasm of upper lobe of left lung (HCC) Procedures RAD/ONC CONSULT OFFICE/OUTPATIENT [facility] [place] [address] [place] [address] Josh Pollard MD [address] [place] [address] [place] [address] Referral IDStatusReasonStart DateExpiration DateVisits RequestedVisits [id number] PCP Requested Referral [id number] NMSpecialtyDiagnoses / Procedures Referred By ContactReferred To ContactMOLECULAR & FUNCTIONAL IMAGING Diagnoses Malignant neoplasm of unspecified part of unspecified bronchus or lung (HCC) Procedures NM PET/CT SKULL-THIGH SUBSEQUENT PET IMAGING CT ATTENUATION SKULL BASE MID-THIGH Jack Hoang MD [address] [place] [address] [place] [address] Molecular & Functional Imaging [address] [place] [address] Referral IDStatusReasonStart DateExpiration DateVisits RequestedVisits [id number] Auto-Generated Referral /[id number] CancerFollow upReasonCommentsPatient EducationReasonCommentsBCASperipheral artery diseaseperipheral artery disease ReasonCommentsMedicare Annual Wellness Visit SubsequentwellnessShoulder PainHip PainReasonCommentsFollow-upTesting done- art doppler completed but pt states did not check carotids which pt says they typically due ReasonCommentsFollow-upCTA 09/25; had CVA 09/26, found mass on L lung, still having dizziness and headaches ReasonCommentsNew PatientSpecialtyDiagnoses / ProceduresReferred By Contact Referred To ContactOncology Diagnoses Lung mass Kassidy Villasenor, CANDLES POURER-PADDING MACHINE OPERATOR [address] [place] [address] [place] [address] [place] [address] Referral IDStatusReasonStart DateExpiration DateVisits RequestedVisits [id number] Review Specialty Services Required /[id number] PatientCXR: 4PFT: 10/17/2023 SpecialtyDiagnoses / ProceduresReferred By ContactReferred To ContactPulmonary Medicine Diagnoses Lung mass Kassidy Villasenor, CANDLES POURER-PADDING MACHINE OPERATOR [address] [place] [address] Estefany Lang, DO [address] [place] [address] Referral IDStatusReasonStart DateExpiration DateVisits RequestedVisits [id number] [id number] Change RequestReasonCommentsPainReasonCommentsPatient UpdateAppointmentReasonComments Referral RequestReasonCommentsRadiotherapy On-treatment VisitReasonComments Future AppointmentReasonOnset DateCommentsMed Zspriy3006/05/2024ReasonComments Nutrition TelephoneReasonOnset DateCommentsMed Vmfbod5506/26/2024ReasonOnset Date CommentsRefill Xvpycom5507/09/2024RitalinReasonCommentsLung CancerReasonComments Referral InformationDermatologyReasonCommentsRadiology CTSpecialtyDiagnoses / ProceduresReferred By ContactReferred To ContactCT IMAGING Diagnoses Syncope and collapse Procedures CT BRAIN WO/W IVCON CT HEAD/BRAIN W/O & W/CONTRAST MATERIAL Michelle Mejia, CANDLES POURER.PADDING MACHINE OPERATOR [address] [facility] [place] [address] Phone: tel: fax: [place] [address] Referral IDStatusReasonStperryville DateExpiration DateVisits RequestedVisits [id number] Review Auto-Generated Referral /[id number] / ProceduresReferred By ContactReferred To ContactMOLECULAR & FUNCTIONAL IMAGING Diagnoses Syncope and collapse Malignant neoplasm of upper lobe of left lung (HCC) Procedures NM PET/CT SKULL-THIGH SUBSEQUENT PET IMAGING CT ATTENUATION SKULL BASE MID-THIGH Michelle Mejia, CANDLES POURER.PADDING MACHINE OPERATOR [address] [facility] [place] [address] Phone: tel: fax: Molecular Imaging [address] [phone] Phone: tel: Referral IDStatusReasonStart DateExpiration DateVisits RequestedVisits [id number] Auto-Generated Referral /[id number] CoordinationMRI resultsReasonComments Established PatientReasonCommentsFollow-up3 month follow up; BCAS; with no testing Bilateral carotid artery stenosis; patient is having some head pain fat a 4 right now; been going on for a while now has MR testing coming up for it ReasonCommentsCare CoordinationHeadache & FatigueReasonCommentsCare Coordination PET ResultsReasonOnset DateCommentsMed Tkwcmo9908/07/2024ReasonOnset DateComments Med Jafcfm2209/19/2024ReasonCommentsCare CoordinationFatigueReasonOnset Date CommentsCare Ncesmexjglme97/17/2025Lab ResultsReasonCommentsFollow-upOV F/U 6-9 MO NO TESTS L/S LLD, SCHED W/PTReasonCommentsHip PainRight hipCoughReason CommentsCare CoordinationLung PainReasonCommentsRadio Gen RMPReasonCommentsCare CoordinationHospital AdmissionReasonCommentsCare CoordinationDischarge Follow Up CallReasonCommentsResultsSpecialtyDiagnoses / ProceduresReferred By Contact Referred To ContactMOLECULAR & FUNCTIONAL IMAGING Diagnoses Malignant neoplasm of unspecified part of unspecified bronchus or lung (HCC) Procedures NM PET/CT SKULL-THIGH SUBSEQUENT PET IMAGING CT ATTENUATION SKULL BASE MID-THIGH Lo Hancock MD [address] [place] [address] [place] [address] Phone: tel: fax: Molecular Imaging [address] [phone] Phone: tel: Referral IDStatusReasonStart DateExpiration DateVisits RequestedVisits [id number] Auto-Generated Referral / Care Teams (unrecognized sec tion and content) Team MemberRelationshipSpecialtyStart DateEnd Date JasenNakia DO [address] [place] [place] [address] PCP - [place] EDUARDO11/05/21 Dick Miranda MD [address] [place] [address] PCP - GeneralFamily Medicine04/20/23Team MemberRelationshipSpecialtyStart DateEnd Date Basia Vega PCP - GeneralFamily Medicine10/13/11Team MemberRelationshipSpecialtyStart DateEnd Date Dick Miranda [address] [place] [address] PCP - GeneralFamily Medicine10/21/23Team MemberRelationshipSpecialtyStart DateEnd Date Dick Miranda [address] [place] [address] PCP - GeneralFamily Medicine10/21/23Team MemberRelationshipSpecialtyStart DateEnd Date Dick Miranda [address] [place] [address] PCP - GeneralFamily Medicine10/21/23Team MemberRelationshipSpecialtyStart DateEnd Date Dick Miranda [address] [place] [address] PCP - GeneralFamily Medicine10/21/23Team MemberRelationshipSpecialtyStart DateEnd Date Dick Miranda [address] [place] [address] PCP - GeneralFamily Medicine10/21/23Team MemberRelationshipSpecialtyStart DateEnd Date Dick Miranda [address] [place] [address] PCP - GeneralFamily Medicine10/21/23Team MemberRelationshipSpecialtyStart DateEnd Date Dick Miranda [address] [place] [address] PCP - GeneralFamily Medicine10/21/23Team MemberRelationshipSpecialtyStart DateEnd Date Dick Miranda [address] [place] [address] PCP - GeneralFamily Medicine10/21/23Team MemberRelationshipSpecialtyStart DateEnd Date Dick Miranda [address] [place] [address] PCP - GeneralFamily Medicine10/21/23Team MemberRelationshipSpecialtyStart DateEnd Date Dick Miranda [address] [place] [address] PCP - GeneralFamily Medicine10/21/23Team MemberRelationshipSpecialtyStart DateEnd Date Dick Miranda [address] [place] [address] PCP - GeneralFamily Medicine10/21/23 Lo Hancokc MD [address] [facility] [address] Hematology/Oncology11/04/23 Gerald Abdi MD [address] [place] [address] Hematology/Oncology11/04/23 Olegario Moreira MD [facility] [place] [address] 11/04/23Team MemberRelationshipSpecialtyStart DateEnd Date Dick Miranda [address] [place] [address] PCP - GeneralFamily Medicine10/21/23 Lo Hancock MD [address] [facility] [place] [address] Hematology/Oncology11/04/23 Gerald Abdi MD [address] [place] [address] Hematology/Oncology11/04/23 Olegario Moreira MD [facility] [employer] [facility] [place] [address] 11/04/23Team MemberRelationshipSpecialtyStart DateEnd Date Dick Miranda [address] [place] [address] PCP - GeneralFamily Medicine10/21/23 Lo Hancock MD [address] [facility] [place] [address] Hematology/Oncology11/04/23 Gerald Abdi MD [address] [place] [address] Hematology/Oncology11/04/23 Olegario Moreira MD [employer], [address] [place] [address] 11/04/23 Lo Hancock MD [address] [facility] [place] [address] PhysicianHematology/Oncology11/14/23 Michelle Mejia APRN.PADDING MACHINE OPERATOR [address] [place] [address] Nurse PractitionerHematology/Oncology11/14/23 Noemy Chicas, EWELINA [address] [address] Specialty Care CoordinatorHematology/Oncology11/14/23Team MemberRelationship SpecialtyStart DateEnd Date Dick Miranda [address] [facility] [place] [address] PCP - GeneralFamily Medicine10/21/23 Lo Hancock MD [address] [place] [address] Hematology/Oncology11/04/23 Gerald Abdi MD [address] [place] [address] Hematology/Oncology11/04/23 Olegario Moreira MD [address] [employer] [address] [place] [address] 11/04/23 Lo Hancock MD [address] [place] [address] PhysicianHematology/Oncology11/14/23 Michelle Mejia APRN.PADDING MACHINE OPERATOR [address] [place] [address] Nurse PractitionerHematology/Oncology11/14/23 Noemy Chicas, EWELINA [address] [address] Specialty Care CoordinatorHematology/Oncology11/14/23Team MemberRelationship SpecialtyStart DateEnd Date Dick Miranda [address] [facility] [place] [address] PCP - GeneralFamily Medicine10/21/23 Lo Hancock MD [address] [place] [address] Hematology/Oncology11/04/23 Gerald Abdi MD [address] [place] [address] Hematology/Oncology11/04/23 Olegario Moreira MD [facility] [employer] [place] [address] 11/04/23 Lo Hancock MD [address] [place] [address] PhysicianHematology/Oncology11/14/23 Michelle Mejia, CANDLES POURER.PADDING MACHINE OPERATOR [address] [place] [address] Nurse PractitionerHematology/Oncology11/14/23 Noemy Chicas, RN [address] [place] [address] Specialty Care CoordinatorHematology/Oncology11/14/23Team MemberRelationship SpecialtyStart DateEnd Date Dick Miranda [address] [facility] [place] [address] PCP - GeneralFamily Medicine10/21/23 Lo Hancock MD [address] [facility] [address] [place], [facility]70 Hematology/Oncology11/04/23 Gerald Abdi MD [facility] [place] [address] Hematology/Oncology11/04/23 Olegario Moreira MD [address] [place] [address], [address] [place] [address] 11/04/23 Lo Hancock MD [address] [facility] [place] [address] PhysicianHematology/Oncology11/14/23 Michelle Mejia, CANDLES POURER.PADDING MACHINE OPERATOR [address] [facility] [place] [place] [address] Nurse PractitionerHematology/Oncology11/14/23 Noemy Chicas, EWELINA [address] [facility] [place] [address] Specialty Care CoordinatorHematology/Oncology11/14/23Team MemberRelationship SpecialtyStart DateEnd Date Dick Miranda [address] [place] [address] PCP - GeneralFamily Medicine10/21/23 Lo Hancock MD [address] [facility] [address] [place] [address] Hematology/Oncology11/04/23 [place] [address] [place] [address] Hematology/Oncology11/04/23 Olegario Moreira MD [address] [place] [address], [address] [place] [address] 11/04/23 Lo Hancock MD [address] [place] [address] [place] [address] PhysicianHematology/Oncology11/14/23 Michelle Mejia APRN.PADDING MACHINE OPERATOR [address] [address] [place] [address] Nurse PractitionerHematology/Oncology11/14/23 Noemy Chicas, EWELINA [address] [place] [address] Specialty Care CoordinatorHematology/Oncology11/14/23 Steffany Damian LSW Social Worker11/16/23Team MemberRelationshipSpecialtyStart DateEnd Date Dick Miranda [address] [place] [address] PCP - GeneralFamily Medicine10/21/23 Lo Hancock MD [address] [address] [place] [address] Hematology/Oncology11/04/23 Gerald Abdi MD [facility] [place] [address] Hematology/Oncology11/04/23 Olegario Moreira MD [facility] [employer] [place] [address] 11/04/23 Lo Hancock MD [address] [address] [place] [address] PhysicianHematology/Oncology11/14/23 Michelle Mejia APRN.PADDING MACHINE OPERATOR [address] [facility] [place] [address] Nurse PractitionerHematology/Oncology11/14/23 Noemy Chicas, EWELINA [address] [place] [address] Specialty Care CoordinatorHematology/Oncology11/14/23 Steffany Damian LSW Social Worker11/16/23Team MemberRelationshipSpecialtyStart DateEnd Date Dick Miranda [address] [place] [address] PCP - GeneralFamily Medicine10/21/23 Lo Hancock MD [address] [facility] [place] [address] Hematology/Oncology11/04/23 Gerald Abdi MD [address] [place] [address] Hematology/Oncology11/04/23 Olegario Moreira MD [address] [place] [address], [address] [place] [address] 11/04/23 Lo Hancock MD [address] [facility] [place] [address] PhysicianHematology/Oncology11/14/23 Michelle Mejia APRN.PADDING MACHINE OPERATOR [address] [facility] [address] [place] [address] Nurse PractitionerHematology/Oncology11/14/23 Noemy Chicas, EWELINA [address] [address] Specialty Care CoordinatorHematology/Oncology11/14/23 Steffany Damian LSW Social Worker11/16/23Team MemberRelationshipSpecialtyStart DateEnd Date Dick Miranda [address] [facility] [place] [address] PCP - GeneralFamily Medicine10/21/23 Lo Hancock MD [address] [facility] [address] [place] [address] Hematology/Oncology11/04/23 Gerald Abdi MD [address] [place] [address] Hematology/Oncology11/04/23 Olegario Moreira MD [address] [place] [address], [address] [place] [address] 11/04/23 Lo Hancock MD [address] [place] [address] [place] [address] PhysicianHematology/Oncology11/14/23 Michelle Mejia APRN.PADDING MACHINE OPERATOR [address] [place] [address] [place] [address] Nurse PractitionerHematology/Oncology11/14/23 Noemy Chicas, EWELINA [address] [facility] [place] [place] [address] Specialty Care CoordinatorHematology/Oncology11/14/23 Steffany Damian LSW Social Worker11/16/23Team MemberRelationshipSpecialtyStart DateEnd Date Dick Miranda [address] [facility] [address] PCP - GeneralFamily Medicine10/21/23 Lo Hancock MD [address] [place] [address] [place] [address] Hematology/Oncology11/04/23 Gerald Abdi MD [address] [place] [address] [place] [address] Hematology/Oncology11/04/23 Olegario Moreira MD [address] [place] [address] [place] [address] 11/04/23 Lo Hancock MD [address] [place] [address] [address] [place], [facility]70 PhysicianHematology/Oncology11/14/23 Michelle Mejia, CANDLES POURER.PADDING MACHINE OPERATOR [address] [facility] [place] [address] Nurse PractitionerHematology/Oncology11/14/23 Noemy Chicas, RN [address] [facility] [place] [address] Specialty Care CoordinatorHematology/Oncology11/14/23 Steffany Damian LSW Social Worker11/16/23Team MemberRelationshipSpecialtyStart DateEnd Date Dick Miranda [address] [facility] [facility] [address] PCP - GeneralFamily Medicine10/21/23 Lo Hancock MD [address] [place] [address] [place] [address] Hematology/Oncology11/04/23 Gerald Abdi MD [address] [facility] [place] [place] [address] Hematology/Oncology11/04/23 Olegario Moreira MD [address] [facility] [place] [address] 11/04/23 Lo Hancock MD [address] [place] [address] [place] [address] PhysicianHematology/Oncology11/14/23 Michelle Mejia, ROSA.PADDING MACHINE OPERATOR [address] [facility] [address] [place] [address] Nurse PractitionerHematology/Oncology11/14/23 Noemy Chicas EWELINA [address] [place] [address] Specialty Care CoordinatorHematology/Oncology11/14/23 Steffany Damian, VOLCANOLOGIST Social Worker11/16/23Team MemberRelationshipSpecialtyStart DateEnd Date Dick Miranda [address] [place] [address] PCP - [facility] Medicine10/21/23 Lo Hancock MD [address] [facility] [address] [place], [facility]70 Hematology/Oncology11/04/23 Gerald Abdi MD [address] [facility] [address] [place] 3[address]170 Hematology/Oncology11/04/23 Olegario Moreira MD [address] [facility] [address] [place], [facility]70 11/04/23 Lo Hancock MD [address] [facility] [place] [address] PhysicianHematology/Oncology11/14/23 Michelle Mejia APRN.PADDING MACHINE OPERATOR [address] [place] [place] [address] Nurse PractitionerHematology/Oncology11/14/23 Noemy Chicas RN [address] [place] [place] [address] Specialty Care CoordinatorHematology/Oncology11/14/23 Steffany Damian LSW Social Worker11/16/23Team MemberRelationshipSpecialtyStart DateEnd Date Dick Miranda [address] [place] [address] PCP - GeneralFamily Medicine10/21/23 Lo Hancock MD [address] [place] [address] [place] [address] Hematology/Oncology11/04/23 Gerald Abdi MD [address] [place] [address] [address] [place] [id number] Hematology/Oncology11/04/23 Olegario Moreira MD [address] [place] [address] [address] [place] [id number] 11/04/23 Lo Hancock MD [address] [place] [address] [address] [place] [id number] PhysicianHematology/Oncology11/14/23 Michelle Mejia APRN.PADDING MACHINE OPERATOR [address] [place] [address] [place] [address] Nurse PractitionerHematology/Oncology11/14/23 Noemy Chicas, EWELINA [address] [facility] [place] [address] Specialty Care CoordinatorHematology/Oncology11/14/23 Steffany Dmaian LSW Social Worker11/16/23Team MemberRelationshipSpecialtyStart DateEnd Date Dick Miranda MD [address] [place] [address] PCP - GeneralFamily Medicine04/20/23 Montse Duran, EWELINA [address] [place] [address] Registered NurseFamily Medicine10/05/23Team MemberRelationshipSpecialtyStart Date End Date Dick Miranda [address] [place] [address] PCP - GeneralFamily Medicine10/21/23 Lo Hancock MD [address] [facility] [place] [address] Hematology/Oncology11/04/23 Gerald Abdi MD [address] [facility] [address] [place], [facility]70 Hematology/Oncology11/04/23 Olegario Moreira MD [address] [facility] [address] [place], [facility]70 11/04/23 Lo Hancock MD [address] [facility] [address] [place], [facility]70 PhysicianHematology/Oncology11/14/23 Michelle Mejia APRN.PADDING MACHINE OPERATOR [address] [facility] [place] [address] Nurse PractitionerHematology/Oncology11/14/23 Noemy Chicas, EWELINA [address] [facility] [place] [address] Specialty Care CoordinatorHematology/Oncology11/14/23 Steffany Damian LSW Social Worker11/16/23Team MemberRelationshipSpecialtyStart DateEnd Date Karyn Dick Dietz [address] [place] [address] PCP - GeneralFamily Medicine10/21/23 Lo Hancock MD [address] [place] [address] [place] [address] Hematology/Oncology11/04/23 Gerald Abdi MD [address] [place] [address] [place] [address] Hematology/Oncology11/04/23 Olegario Moreira MD [address] [place] [address] [address] [place], [facility]70 11/04/23 Lo Hancock MD [address] [place] [address] [place] [address] PhysicianHematology/Oncology11/14/23 Michelle Mejia, CANDLES POURER.PADDING MACHINE OPERATOR [address] [place] [address] [address] [place], [facility]70 Nurse PractitionerHematology/Oncology11/14/23 Noemy Chicas, EWELINA [address] [place] [address] [place] [address] Specialty Care CoordinatorHematology/Oncology11/14/23 Steffany Damian LSW Social Worker11/16/23Team MemberRelationshipSpecialtyStart DateEnd Date Dick Miranda MD [address] [place] [address] PCP - GeneralFamily Medicine04/20/23 Montse Duran, RN [address] [place] [address] Registered NurseFamily Medicine10/05/23Team MemberRelationshipSpecialtyStart Date End Date Dick Miranda MD [address] [place] [address] PCP - GeneralFamily Medicine10/21/23 Lo Hancock MD [address] [facility] [place] [address] Hematology/Oncology11/04/23 Gerald Abdi MD [address] [facility] [address] [place], [facility]70 Hematology/Oncology11/04/23 Olegario Moreira MD [address] [facility] [address] [place], [facility]70 11/04/23 Lo Hancock MD [address] [facility] [place] [address] PhysicianHematology/Oncology11/14/23 Michelle Mejia, ROSA.PADDING MACHINE OPERATOR [address] [facility] [place] [address] Nurse PractitionerHematology/Oncology11/14/23 Noemy Chicas, EWELINA [address] [facility] [place] [place] [address] Specialty Care CoordinatorHematology/Oncology11/14/23 Steffany Damian LSW Social Worker11/16/23Team MemberRelationshipSpecialtyStart DateEnd Date Dick Miranda MD [address] [place] [address] PCP - GeneralFamily Medicine10/21/23 Lo Hancock MD [address] [facility] [place] [place] [address] Hematology/Oncology11/04/23 Gerald Abdi MD [address] [facility] [place] [address] Hematology/Oncology11/04/23 Olegario Moreira MD [address] [facility] [address] [place], [facility]70 11/04/23 Lo Hancock MD [address] [facility] [address] [place], [facility]70 PhysicianHematology/Oncology11/14/23 Michelle Mejia APRN.PADDING MACHINE OPERATOR [address] [facility] [address] [place], [facility]70 Nurse PractitionerHematology/Oncology11/14/23 Noemy Chicas, EWELINA [address] [facility] [address] [place], [facility]70 Specialty Care CoordinatorHematology/Oncology11/14/23 Steffany Damian LSW Social Worker11/16/23Team MemberRelationshipSpecialtyStart DateEnd Date Dick Miranda MD [address] [place] [address] PCP - GeneralFamily Medicine10/21/23 Lo Hancokc MD [address] [facility] [place] [address] Hematology/Oncology11/04/23 Gerald Abdi MD [address] [facility] [place] [address] Hematology/Oncology11/04/23 Olegario Moreira MD [address] [facility] [address] [place], [facility]70 11/04/23 Lo Hancock MD [address] [place] [address] [place] [address] PhysicianHematology/Oncology11/14/23 Michelle Mejia APRN.PADDING MACHINE OPERATOR [address] [place] [address] [place] [address] Nurse PractitionerHematology/Oncology11/14/23 Noemy Chicas, EWELINA [address] [facility] [place] [address] Specialty Care CoordinatorHematology/Oncology11/14/23 Steffany Damian LSW Social Worker11/16/23Team MemberRelationshipSpecialtyStart DateEnd Date Dick Miranda MD [address] [place] [address] PCP - GeneralFamily Medicine04/20/23 Montse Duran, EWELINA [address] [place] [address] Registered NurseFamily Medicine10/05/23Team MemberRelationshipSpecialtyStart Date End Date Dick Miranda MD [address] [place] [address] PCP - GeneralFamily Medicine10/21/23 Lo Hancock MD [address] [place] [address] [place] [address] Hematology/Oncology11/04/23 Gerald Abdi MD [address] [facility] [place] [address] Hematology/Oncology11/04/23 Olegario Moreira MD [address] [facility] [place] [place] [address] 11/04/23 Lo Hancock MD [address] [place] [address] [place] [address] PhysicianHematology/Oncology11/14/23 Michelle Mejia, CANDLES POURER.PADDING MACHINE OPERATOR [address] [place] [address] [place] [address] Nurse PractitionerHematology/Oncology11/14/23 Noemy Chicas, EWELINA [address] [place] [address] [place] [address] Specialty Care CoordinatorHematology/Oncology11/14/23 Steffany Damian LSW Social Worker11/16/23 Joey Scott, CANDLES POURER.PADDING MACHINE OPERATOR [address] [place] [address] [place] [address] Hospice & Palliative Swlenxhn39/22/24 Anna Rasmussen RN Specialty Care CoordinatorHospice & Palliative Lltggrle28/22/24Team Member RelationshipSpecialtyStart DateEnd Date Dick Miranda MD [address] [place] [address] PCP - GeneralFamily Medicine10/21/23 Lo Hancock MD [address] [place] [address] [place] [address] Hematology/Oncology11/04/23 Gerald Abdi MD [address] [place] [address] [place] [address] Hematology/Oncology11/04/23 Olegario Moreira MD [address] [facility] [place] [address] 11/04/23 Lo Hancock MD [address] [place] [address] [place] [address] PhysicianHematology/Oncology11/14/23 Michelle Mejia, CANDLES POURER.PADDING MACHINE OPERATOR [address] [place] [address] [place] [address] Nurse PractitionerHematology/Oncology11/14/23 Noemy Chicas, EWELINA [address] [facility] [place] [address] Specialty Care CoordinatorHematology/Oncology11/14/23 Steffany Damian LSW Social Worker11/16/23 Joey Scott, CANDLES POURER.PADDING MACHINE OPERATOR [address] [place] [address] [place] [address] Hospice & Palliative Wjfwsovo58/22/24 Anna Rasmussen RN Specialty Care CoordinatorHospice & Palliative Evieqvbj21/22/24Team Member RelationshipSpecialtyStart DateEnd Date Dick Miranda MD [address] [place] [address] PCP - GeneralFamily Medicine10/21/23 Lo Hancock MD [address] [place] [address] [place] [address] Hematology/Oncology11/04/23 Gerald Abdi MD [address] [place] [address] [place] [address] Hematology/Oncology11/04/23 Olegario Moreira MD [address] [facility] [place] [place] [address] 11/04/23 Lo Hancock MD [address] [place] [address] [place] [address] PhysicianHematology/Oncology11/14/23 Michelle Mejia, CANDLES POURER.PADDING MACHINE OPERATOR [address] [place] [address] [place] [address] Nurse PractitionerHematology/Oncology11/14/23 Noemy Chicas, EWELINA [address] [facility] [place] [address] Specialty Care CoordinatorHematology/Oncology11/14/23 Steffany Damian LSW Social Worker11/16/23 Joey Scott, CANDLES POURER.PADDING MACHINE OPERATOR [address] [place] [address] [place] [address] Hospice & Palliative Olbcotud78/22/24 Anna Rasmussen RN Specialty Care CoordinatorHospice & Palliative Xyjcfxff21/22/24Team Member RelationshipSpecialtyStart DateEnd Date Dick Miranda MD [address] [place] [address] PCP - GeneralFamily Medicine10/21/23 Lo Hancock MD [address] [place] [address] [place] [address] Hematology/Oncology11/04/23 Gerald Abdi MD [address] [place] [address] [place] [address] Hematology/Oncology11/04/23 Olegario Moreira MD [address] [place] [address] [place] [address] 11/04/23 Lo Hancock MD [address] [place] [address] [place] [address] PhysicianHematology/Oncology11/14/23 Michelle Mejia, CANDLES POURER.PADDING MACHINE OPERATOR [address] [place] [address] [place] [address] Nurse PractitionerHematology/Oncology11/14/23 Noemy Chicas, EWELINA [address] [facility] [place] [address] Specialty Care CoordinatorHematology/Oncology11/14/23 Steffany Damian LSW Social Worker11/16/23 Joey Scott, CANDLES POURER.PADDING MACHINE OPERATOR [address] [place] [address] [place] [address] Hospice & Palliative Wrckvofc09/22/24 Anna Rasmussen RN Specialty Care CoordinatorHospice & Palliative Tmwysgoj98/22/24Team Member RelationshipSpecialtyStart DateEnd Date Dick Miranda MD [address] [place] [address] PCP - GeneralFamily Medicine04/20/23 Montse Duran, EWELINA [address] [place], [place] [address] Registered NurseFamily Medicine10/05/23Team MemberRelationshipSpecialtyStart Date End Date Dick Miranda MD [address] [place] [id number] PCP - GeneralFamily Medicine04/20/23 Montse Duran, RN [address] [place], [place] [address]20 Registered NurseFamily Medicine10/05/23Team MemberRelationshipSpecialtyStart Date End Date Dick Miranda MD [address] [place] [address] PCP - GeneralFamily Medicine10/21/23 Lo Hancock MD [address] [place] [address] Hematology/Oncology11/04/23 Gerald Abdi MD [address] [facility] [place] [address] Hematology/Oncology11/04/23 Olegario Moreira MD [address] [facility] [address] [place], [facility]70 11/04/23 Lo Hancock MD [address] [place] [address] PhysicianHematology/Oncology11/14/23 Michelle Mejia APRN.PADDING MACHINE OPERATOR [address] [place] [place] [address] Nurse PractitionerHematology/Oncology11/14/23 Noemy Chicas, EWELINA [address] [place] [place] [address] Specialty Care CoordinatorHematology/Oncology11/14/23 Steffany Damian LSW Social Worker11/16/23 Joey Scott APRN.PADDING MACHINE OPERATOR [address] [place] [address] [place] [address] Hospice & Palliative Npjjipra83/22/24 Anna Rasmussen, RN Specialty Care CoordinatorHospice & Palliative Bdrgrrli69/22/24Team Member RelationshipSpecialtyStart DateEnd Date Dick Miranda MD [address] [place] [id number] PCP - GeneralFamily Medicine04/20/23 Nakia Montez, DO [address] [place] [address] PCP - [place]12/06/23 Montse Duran, EWELINA [address] [place] [address] Registered NurseFamily Medicine10/05/23Team MemberRelationshipSpecialtyStart Date End Date Dick Miranda MD [address] [place] [address] PCP - Generalmily Medicine04/20/23 Nakia Montez DO [address] [place] [address] PCP - [place]12/06/23 Montse Duran, EWELINA [address] [place] [address] Registered NurseFamily Medicine10/05/23Team MemberRelationshipSpecialtyStart Date End Date Dick Miranda MD [address] [place] [address] PCP - GeneralFamily Medicine04/20/23 Nakia Montez DO [address] [place] [address] PCP - [place]12/06/23 Montse Duran, EWELINA [address] [place] [address] Registered NurseFamily Medicine10/05/23Team MemberRelationshipSpecialtyStart Date End Date Dick Miranda MD [address] [place] [address] PCP - GeneralFamily Medicine10/21/23 Lo Hancock MD [address] [facility] [place] [place] [address] Hematology/Oncology11/04/23 Gerald Abdi MD [address] [facility] [address] [place], [facility]70 Hematology/Oncology11/04/23 Olegario Moreira MD [address] [facility] [address] [place], [facility]70 11/04/23 Lo Hancock MD [address] [facility] [address] [place], [facility]70 PhysicianHematology/Oncology11/14/23 Michelle Mejia, ROSA.PADDING MACHINE OPERATOR [address] [place] [place] [address] Nurse PractitionerHematology/Oncology11/14/23 Noemy Chicas, EWELINA [address] [place] [place] [address] Specialty Care CoordinatorHematology/Oncology11/14/23 Rickie, Steffany, VOLCANOLOGIST Social Worker11/16/23 Joey Scott, ROSA.PADDING MACHINE OPERATOR [address] [place] [address] [place] [address] Hospice & Palliative Cinmgouz81/22/24 Anna Rasmussen RN Specialty Care CoordinatorHospice & Palliative Mheegibt23/22/24Team Member RelationshipSpecialtyStart DateEnd Date Dick Miranda MD [address] [place] [address] PCP - GeneralFamily Medicine04/20/23 Montse Duran RN [address] [place] [address] Registered NurseFamily [facility]10/05/23Team MemberRelationshipSpecialtyStart Date End Date Dick Miranda MD [address] [place] [address] PCP - GeneralFamily Medicine04/20/23 Nakia Montez DO [address] [place] [address] PCP - [place]12/06/23 [place] [address] [place] [address] Registered Nursemily [facility]10/05/23Team MemberRelationshipSpecialtyStart Date End Date Dick Miranda MD [address] [place] [address] PCP - GeneralFamily Medicine10/21/23 Lo Hancock MD [address] [facility] [place] [address] Hematology/Oncology11/04/23 Gerald Abdi MD [address] [place] [address] [place] [address] Hematology/Oncology11/04/23 Olegario Moreira MD [address] [facility] [place] [address] 11/04/23 Lo Hancock MD [address] [place] [address] DR [place], [facility]70 PhysicianHematology/Oncology11/14/23 Michelle Mejia, CANDLES POURER.PADDING MACHINE OPERATOR [address] [place] [address] [place] [address] Nurse PractitionerHematology/Oncology11/14/23 Noemy Chicas RN [address] [facility] [place] [address] Specialty Care CoordinatorHematology/Oncology11/14/23 Steffany Damian LSW Social Worker11/16/23 Joey Scott, CANDLES POURER.PADDING MACHINE OPERATOR [address] [place] [address] [place] [address] Hospice & Palliative Yhinxpgf20/22/24 Anna Rasmussen RN Specialty Care CoordinatorHospice & Palliative Sipxnzuh25/22/24Team Member RelationshipSpecialtyStart DateEnd Date Dick Miranda MD [address] [place] [address] PCP - GeneralFamily Medicine04/20/23 Montse Duran, EWELINA [address] [place] [address] Registered NurseFamily Medicine10/05/23Team MemberRelationshipSpecialtyStart Date End Date Dick Miranda MD [address] [place] [address] PCP - [facility]04/20/23 Montse Duran, EWELINA [address] [place] [address] Registered NurseAdventhealth [facility]10/05/23Team MemberRelationshipSpecialtyStart Date End Date Dick Miranda MD [address] [place] [address] PCP - [facility]04/20/23 Montse Duran RN [address] [place] [address] [facility] NurseAdventhealth [facility]10/05/23Te MemberRelationshipSpecialtyStart Date End Date Dick Miranda MD [address] [place] [address] PCP - [facility]10/21/23 Lo Hancock MD [address] [place], [facility]70 Hematology/Oncology11/04/23 Gerald Abdi MD [address] [facility] [address] [place], [facility]70 Hematology/Oncology11/04/23 Olegario Moreira MD [address] [place], [facility]70 11/04/23 Lo Hancock MD [address] [facility] [address] [place], [facility]70 PhysicianHematology/Oncology11/14/23 Michelle Mejia, CANDLES POURER.PADDING MACHINE OPERATOR [address] [place] [address] [place] [address] Nurse PractitionerHematology/Oncology11/14/23 Noemy Chicas, EWEILNA [address] [place] [address] [place] [address] Specialty Care CoordinatorHematology/Oncology11/14/23 Steffany Damian LSW Social Worker11/16/23 Joey Scott, CANDLES POURER.PADDING MACHINE OPERATOR [address] [place] [address] [place] [address] Hospice & Palliative Cizhzcqk63/22/24 Anna Rasmussen RN Specialty Care CoordinatorHospice & Palliative Oecadzfa77/22/24Team Member RelationshipSpecialtyStart DateEnd Date Dick Miranda MD PCP - GeneralFamily Medicine09/27/23Team MemberRelationshipSpecialtyStart DateEnd Date Dick Miranda MD PCP - GeneralFamily Medicine09/27/23Team MemberRelationshipSpecialtyStart DateEnd Date Dick Miranda MD PCP - GeneralFamily Medicine09/27/23Team MemberRelationshipSpecialtyStart DateEnd Date Dick Miranda MD [address] [place] [address] PCP - GeneralFamily Medicine04/20/23 Nakia Montez DO [address] [place] [address] PCP - [facility]12/06/23 Montse Duran, EWELINA [address] [place] [address] Registered NurseFamily Medicine10/05/23Team MemberRelationshipSpecialtyStart Date End Date Dick Miranda MD [address] [place] [address] PCP - GeneralFamily Medicine10/21/23 Lo Hancock MD [address] [facility] [place] [place] [address] Hematology/Oncology11/04/23 Gerald Abdi MD [address] [facility] [address] [place] [id number] Hematology/Oncology11/04/23 Olegario Moreira MD [address] [facility] [address] [place], [facility]70 11/04/23 Lo Hancock MD [address] [place] [address] PhysicianHematology/Oncology11/14/23 Michelle Mejia, CANDLES POURER.PADDING MACHINE OPERATOR [address] [place] [address] Nurse PractitionerHematology/Oncology11/14/23 Noemy Chicas, EWELINA [address] [place] [address] Specialty Care CoordinatorHematology/Oncology11/14/23 Steffany Damian LSW Social Worker11/16/23 Joey Scott, CANDLES POURER.PADDING MACHINE OPERATOR [address] [place] [address] Hospice & Palliative Dhohhuem09/22/24 Anna Rasmussen RN Specialty Care CoordinatorHospice & Palliative Ienwxfwy78/22/24Team Member RelationshipSpecialtyStart DateEnd Date Dick Miranda MD [address] [place] [address] PCP - GeneralFamily Medicine10/21/23 Lo Hancock MD [address] [facility] [place] [address] Hematology/Oncology11/04/23 Gerald Abdi MD [address] [facility] [address] [place], [facility]70 Hematology/Oncology11/04/23 Olegario Moreira MD [address] [facility] [address] [place], [facility]70 11/04/23 Lo Hancock MD [address] [facility] [place] [address] PhysicianHematology/Oncology11/14/23 Michelle Mejia, ROSA.PADDING MACHINE OPERATOR [address] [place] [place] [address] Nurse PractitionerHematology/Oncology11/14/23 Noemy Chicas, EWELINA [address] [place] [place] [address] Specialty Care CoordinatorHematology/Oncology11/14/23 Steffany Damian LSW Social Worker11/16/23 Joey Scott, CANDLES POURER.PADDING MACHINE OPERATOR [address] [place] [address] Hospice & Palliative Csdgzifj92/22/24 Anna Rasmussen RN Specialty Care CoordinatorHospice & Palliative Lhvfaopt12/22/24Team Member RelationshipSpecialtyStart DateEnd Date Dick Miranda MD [address] [place] [address] PCP - GeneralFamily Medicine10/21/23 Lo Hancock MD [address] [place] [address] Hematology/Oncology11/04/23 Gerald Abdi MD [address] [facility] [address] [place], [facility]70 Hematology/Oncology11/04/23 Olegario Moreira MD [address] [place] [address] 11/04/23 Lo Hancock MD [address] [place] [address] PhysicianHematology/Oncology11/14/23 Michelle Mejia, ROSA.PADDING MACHINE OPERATOR [address] [place] [address] Nurse PractitionerHematology/Oncology11/14/23 Noemy Chicas, EWELINA [address] [place] [address] Specialty Care CoordinatorHematology/Oncology11/14/23 Steffany Damian LSW Social Worker11/16/23 Joey Scott APRN.PADDING MACHINE OPERATOR [address] [facility] [place] [address] Hospice & Palliative Onsznvjt64/22/24 Anna Rasmussen RN Specialty Care CoordinatorHospice & Palliative Vjptptci19/22/24Team Member RelationshipSpecialtyStart DateEnd Date Dick Miranda MD [address] [place] [address] PCP - GeneralFamily Medicine10/21/23 Lo Hancock MD [address] [facility] [place] [address] Hematology/Oncology11/04/23 Gerald Abdi MD [address] [place], [place] [address] [facility] [address] [place], [facility]70 Hematology/Oncology11/04/23 Olegario Moreira MD [address] [facility] [address] [place], [facility]70 11/04/23 Lo Hancock MD [address] [facility] [place] [address] PhysicianHematology/Oncology11/14/23 Michelle Mejia APRN.PADDING MACHINE OPERATOR [address] [facility] [place] [address] Nurse PractitionerHematology/Oncology11/14/23 Neomy Chicas, EWELINA [address] [facility] [place] [address] Specialty Care CoordinatorHematology/Oncology11/14/23 Steffany Damian LSW Social Worker11/16/23 Joey Scott, CANDLES POURER.PADDING MACHINE OPERATOR [address] [facility] [place] [place] [address] Hospice & Palliative Wyjimeiw67/22/24 Anna Rasmussen RN Specialty Care CoordinatorHospice & Palliative Cghuvvix92/22/24Team Member RelationshipSpecialtyStart DateEnd Date Dick Miranda MD [address] [place] [address] PCP - GeneralFamily Medicine10/21/23 Lo Hancock MD [address] [facility] [place] [place] [address] Hematology/Oncology11/04/23 Gerald Abdi MD [address] [place] [address] [place] [address] Hematology/Oncology11/04/23 Olegario Moreira MD [address] [facility] [place] [address] 11/04/23 Lo Hancock MD [address] [facility] [place] [place] [address] PhysicianHematology/Oncology11/14/23 Michelle Mejia, ROSA.PADDING MACHINE OPERATOR [address] [facility] [place] [address] Nurse PractitionerHematology/Oncology11/14/23 Noemy Chicas, EWELINA [address] [facility] [place] [address] Specialty Care CoordinatorHematology/Oncology11/14/23 Steffany Damian LSW Social Worker11/16/23 Joey Scott, ROSA.PADDING MACHINE OPERATOR [address] [facility] [place] [place] [address] Hospice & Palliative Bcdamkmn21/22/24 Anna Rasmussen RN Specialty Care CoordinatorHospice & Palliative Dimqoxlw30/22/24Team Member RelationshipSpecialtyStart DateEnd Date Dick Miranda MD [address] [place] [address] PCP - GeneralFamily Medicine10/21/23 Lo Hancock MD [address] [place] [address] [place] [address] Hematology/Oncology11/04/23 Gerald Abdi MD [address] [place] [address] [place] [address] Hematology/Oncology11/04/23 Olegario Moreira MD [address] [place] [address] [place] [address] 11/04/23 Lo Hancock MD [address] [place] [address] [place] [address] PhysicianHematology/Oncology11/14/23 Michelle Mejia APRN.PADDING MACHINE OPERATOR [address] [facility] [place] [address] Nurse PractitionerHematology/Oncology11/14/23 Noemy Chicas, EWELINA [address] [facility] [place] [place] [address] Specialty Care CoordinatorHematology/Oncology11/14/23 Steffany Damian LSW Social Worker11/16/23 Joey Scott APRN.PADDING MACHINE OPERATOR [address] [place] [address] [place] [address] Hospice & Palliative Otbyljur09/22/24 Anna Rasmussen RN Specialty Care CoordinatorHospice & Palliative Hoyandee09/22/24Team Member RelationshipSpecialtyStart DateEnd Date Jasen Nakia MorenoDO [address] [place] [address] PCP - GeneralFamily Medicine04/13/21Team MemberRelationshipSpecialtyStart DateEnd Date Dick Miranda MD PCP - GeneralFamily Medicine09/27/23Team MemberRelationshipSpecialtyStart DateEnd Date Dick Miranda MD [address] [place] [address] PCP - Generalmily Medicine04/20/23 Montse Duran RN [address] [place] [address] Registered NurseFamily Medicine10/05/23Team MemberRelationshipSpecialtyStart Date End Date Dick Miranda MD [address] [place] [address] PCP - Generalmily Medicine04/20/23 Montse Duran RN [address] [place] [address] Registered NurseAdventhealth [facility]10/05/23Te MemberRelationshipSpecialtyStart Date End Date Dick Miranda MD PCP - GeneralFamily Medicine09/27/23Team MemberRelationshipSpecialtyStart DateEnd Date Dick Miranda MD [address] [place] [address] PCP - GeneralFamily Medicine09/27/23Team MemberRelationshipSpecialtyStart DateEnd Date Dick Miranda MD [address] [place] [address] PCP - Generalmily Medicine09/27/23Team MemberRelationshipSpecialtyStart DateEnd Date Dick Miranda MD PCP - GeneralFamily Medicine09/27/23Team MemberRelationshipSpecialtyStart DateEnd Date Dick Miranda MD PCP - GeneralFamily Medicine09/27/23Team MemberRelationshipSpecialtyStart DateEnd Date Dick Miranda MD PCP - GeneralFamily Medicine09/27/23Team MemberRelationshipSpecialtyStart DateEnd Date Dick Miranda MD [address] [place] [address] PCP - GeneralFamily Medicine04/20/23 Montse Duran, RN [address] [place] [address] Registered [facility]10/05/23Team MemberRelationshipSpecialtyStart Date End Date Dick Miranda MD [address] [place] [address] PCP - GeneralFamily Medicine04/20/23 Montse Duran, RN [address] [place] [address] Registered NurseFamily Medicine10/05/23Team MemberRelationshipSpecialtyStart Date End Date Dick Miranda MD [address] [place] [address] PCP - GeneralFamily Medicine10/21/23 Lo Hancock MD [address] [facility] [place] [address] Hematology/Oncology11/04/23 Gerald Abdi MD [address] [facility] [address] [place], [facility]70 Hematology/Oncology11/04/23 Olegario Moreira MD [address] [facility] [address] [place], [facility]70 11/04/23 Lo Hancock MD [address] [place] [address] PhysicianHematology/Oncology11/14/23 Michelle Mejia, ROSA.PADDING MACHINE OPERATOR [address] [place] [address] Nurse PractitionerHematology/Oncology11/14/23 Noemy Chicas, EWELINA [address] [place] [place] [address] Specialty Care CoordinatorHematology/Oncology11/14/23 Steffany Damian LSW Social Worker11/16/23 Joey cSott, CANDLES POURER.PADDING MACHINE OPERATOR [address] [place] [address] Hospice & Palliative Qerucoat30/22/24 Anna Rasmussen RN Specialty Care CoordinatorHospice & Palliative Ijiwfvvi96/22/24Team Member RelationshipSpecialtyStart DateEnd Date Dick Miranda MD [address] [place] [address] PCP - GeneralFamily Medicine10/21/23 Lo Hancock MD [address] [place] [address] Hematology/Oncology11/04/23 Gerald Abdi MD [address] [facility] [address] [place], [facility]70 Hematology/Oncology11/04/23 Olegario Moreira MD [address] [place] [address] 11/04/23 Lo Hancock MD [address] [place] [address] PhysicianHematology/Oncology11/14/23 Michelle Mejia, ROSA.PADDING MACHINE OPERATOR [address] [place] [address] Nurse PractitionerHematology/Oncology11/14/23 Noemy Chicas, EWELINA [address] [place] [address] Specialty Care CoordinatorHematology/Oncology11/14/23 Steffany Damian LSW Social Worker11/16/23 Joey Scott APRN.PADDING MACHINE OPERATOR [address] [facility] [place] [address] Hospice & Palliative Czrcymar60/22/24 Anna Rasmussen RN Specialty Care CoordinatorHospice & Palliative Lzngrcbo95/22/24Team Member RelationshipSpecialtyStart DateEnd Date Dick Miranda MD [address] [place] [address] PCP - GeneralFamily Medicine10/21/23 Lo Hancock MD [address] [facility] [place] [address] Hematology/Oncology11/04/23 Gerald Abdi MD [address] [place], [place] [address] [facility] [address] [place], [facility]70 Hematology/Oncology11/04/23 Olegario Moreira MD [address] [facility] [address] [place], [facility]70 11/04/23 Lo Hancock MD [address] [facility] [place] [place] [address] PhysicianHematology/Oncology11/14/23 Michelle Mejia APRN.PADDING MACHINE OPERATOR [address] [facility] [place] [address] Nurse PractitionerHematology/Oncology11/14/23 Noemy Chicas, EWELINA [address] [facility] [place] [address] Specialty Care CoordinatorHematology/Oncology11/14/23 Steffany Damian LSW Social Worker11/16/23 Joey Scott, CANDLES POURER.PADDING MACHINE OPERATOR [address] [facility] [place] [place] [address] Hospice & Palliative Zpdqunqs07/22/24 Anna Rasmussen RN Specialty Care CoordinatorHospice & Palliative Kjuwyubu18/22/24Team Member RelationshipSpecialtyStart DateEnd Date Dick Miranda MD [address] [place] [address] PCP - GeneralFamily Medicine10/21/23 Lo Hancock MD [address] [facility] [place] [place] [address] Hematology/Oncology11/04/23 Gerald Abdi MD [address] [place] [address] [place] [address] Hematology/Oncology11/04/23 Olegario Moreira MD [address] [facility] [place] [place] [address] 11/04/23 Lo Hancock MD [address] [facility] [place] [address] PhysicianHematology/Oncology11/14/23 Michelle Mejia, ROSA.PADDING MACHINE OPERATOR [address] [facility] [place] [address] Nurse PractitionerHematology/Oncology11/14/23 Noemy Chicas, EWELINA [address] [facility] [place] [address] Specialty Care CoordinatorHematology/Oncology11/14/23 Steffany Damian LSW Social Worker11/16/23 Joey Scott, ROSA.PADDING MACHINE OPERATOR [address] [facility] [place] [address] Hospice & Palliative Maspsaan88/22/24 Anna Rasmussen RN Specialty Care CoordinatorHospice & Palliative Hcujogsl77/22/24Team Member RelationshipSpecialtyStart DateEnd Date Dick Miranda MD [address] [place] [address] PCP - GeneralFamily Medicine10/21/23 Lo Hancock MD [address] [place] [address] [place] [address] Hematology/Oncology11/04/23 Gerald Abdi MD [address] [place] [address] [place] [address] Hematology/Oncology11/04/23 Olegario Moreira MD [address] [place] [address] [place] [address] 11/04/23 Lo Hancock MD [address] [place] [address] [place] [address] PhysicianHematology/Oncology11/14/23 Michelle Mejia APRN.PADDING MACHINE OPERATOR [address] [facility] [place] [address] Nurse PractitionerHematology/Oncology11/14/23 Noemy Chicas, EWELINA [address] [facility] [place] [address] Specialty Care CoordinatorHematology/Oncology11/14/23 Steffany Damian LSW Social Worker11/16/23 Joey Scott, ROSA.PADDING MACHINE OPERATOR [address] [facility] [place] [place] [address] Hospice & Palliative Sacdeuct14/22/24 Anna Rasmussen RN Specialty Care CoordinatorHospice & Palliative Rrhzrtup26/22/24Team Member RelationshipSpecialtyStart DateEnd Date Dick Miranda MD [address] [place] [address] PCP - GeneralFamily Medicine10/21/23 Lo Hancock MD [address] [facility] [place] [address] Hematology/Oncology11/04/23 Gerald Abdi MD [address] [place] [address] [place] [address] Hematology/Oncology11/04/23 Olegario Moreira MD [address] [facility] [place] [place] [address] 11/04/23 Lo Hancock MD [address] [place] [address] [place] [address] PhysicianHematology/Oncology11/14/23 Michelle Mejia APRN.PADDING MACHINE OPERATOR [address] [facility] [place] [address] Nurse PractitionerHematology/Oncology11/14/23 Noemy Chicas RN [address] [facility] [place] [place] [address] Specialty Care CoordinatorHematology/Oncology11/14/23 Steffany Damian LSW Social Worker11/16/23 Joey Scott APRN.PADDING MACHINE OPERATOR [address] [facility] [place] [address] Hospice & Palliative Vjyypqow63/22/24 Anna Rasmussen RN Specialty Care CoordinatorHospice & Palliative Bbjgwtes93/22/24Team Member RelationshipSpecialtyStart DateEnd Date Dick Miranda MD [address] [place] [address] PCP - GeneralFamily Medicine10/21/23 Lo Hancock MD [address] [place] [address] [place] [address] Hematology/Oncology11/04/23 Gerald Abdi MD [address] [place] [address] [place] [address] Hematology/Oncology11/04/23 Olegario Moreira MD [address] [facility] [place] [place] [address] 11/04/23 Lo Hancock MD [address] [place] [address] [place] [address] PhysicianHematology/Oncology11/14/23 Michelle Mejia, ROSA.PADDING MACHINE OPERATOR [address] [facility] [place] [address] Nurse PractitionerHematology/Oncology11/14/23 Noemy Chicas, EWELINA [address] [facility] [place] [place] [address] Specialty Care CoordinatorHematology/Oncology11/14/23 Steffany Damian LSW Social Worker11/16/23 Joey Scott APRN.PADDING MACHINE OPERATOR [address] [facility] [place] [place] [address] Hospice & Palliative Ymrzbjdd90/22/24 Anna Rasmussen RN Specialty Care CoordinatorHospice & Palliative Hybcnrfb86/22/24Team Member RelationshipSpecialtyStart DateEnd Date Dick Miranda MD [address] [place], [place] [address] PCP - GeneralFamily Medicine10/21/23 Lo Hancock MD [address] [place] [address] [place] [address] Hematology/Oncology11/04/23 Gerald Abdi MD [address] [place] [address] [place] [address] Hematology/Oncology11/04/23 Olegario Moreira MD [address] [facility] [place] [place] [address] 11/04/23 Lo Hancock MD [address] [place] [address] [place] [address] PhysicianHematology/Oncology11/14/23 Michelle Mejia, ROSA.PADDING MACHINE OPERATOR [address] [facility] [place] [address] Nurse PractitionerHematology/Oncology11/14/23 Noemy Chicas, EWELINA [address] [facility] [place] [place] [address] Specialty Care CoordinatorHematology/Oncology11/14/23 Steffany Damian LSW Social Worker11/16/23 Joey Scott, ROSA.PADDING MACHINE OPERATOR [address] [facility] [place] [place] [address] Hospice & Palliative Fbporfme49/22/24 Anna Rasmussen RN Specialty Care CoordinatorHospice & Palliative Qngihpwd39/22/24Team Member RelationshipSpecialtyStart DateEnd Date Dick Miranda MD [address] [place] [address] PCP - GeneralFamily Medicine10/21/23 Lo Hancock MD [address] [place] [address] [place] [address] Hematology/Oncology11/04/23 Gerald Abdi MD [address] [place] [address] [place] [address] Hematology/Oncology11/04/23 Olegario Moreira MD [address] [place] [address] [place] [address] 11/04/23 Lo aHncock MD [address] [place] [address] [place] [address] PhysicianHematology/Oncology11/14/23 Michelle Mejia, ROSA.PADDING MACHINE OPERATOR [address] [facility] [place] [address] Nurse PractitionerHematology/Oncology11/14/23 Noemy Chicas, EWELINA [address] [facility] [place] [place] [address] Specialty Care CoordinatorHematology/Oncology11/14/23 Steffany Damian LSW Social Worker11/16/23 Joey Scott, CANDLES POURER.PADDING MACHINE OPERATOR [address] [facility] [place] [place] [address] Hospice & Palliative Igtemasf73/22/24 Anna Rasmussen RN Specialty Care CoordinatorHospice & Palliative Cnxdjlvp46/22/24Team Member RelationshipSpecialtyStart DateEnd Date Dick Miranda MD [address] [place] [address] PCP - GeneralFamily Medicine04/20/23 Nakia Montez DO [address] [facility] [address] [place] [address] PCP - Treasure [place]12/06/23 Montse Duran RN [facility] [facility] [place] [address] Registered NurseFamily Medicine10/05/23Team MemberRelationshipSpecialtyStart Date End Date Dick Miranda MD [address] [place] [address] PCP - GeneralFamily Medicine04/20/23 Nakia Montez DO [address] [facility] [address] [facility] [place] [address] PCP - Treasure CLARK12/06/23 Montse Duran RN [address] [facility] [place] [address] Registered NurseFamily Medicine10/05/23Team MemberRelationshipSpecialtyStart Date End Date Dick Miranda MD [address] [place] [address] PCP - GeneralFamily Medicine10/21/23 Lo Hancock MD [address] [place] [address] Hematology/Oncology11/04/23 Gerald Abdi MD [address] [place] [place] [address] Hematology/Oncology11/04/23 Olegario Moreira MD [address] [place] [address] 11/04/23 Lo Hancock MD [address] [place] [address] [place] [address] PhysicianHematology/Oncology11/14/23 Michelle Mejia, CANDLES POURER.PADDING MACHINE OPERATOR [address] [facility] [place] [address] Nurse PractitionerHematology/Oncology11/14/23 Noemy Chicas, EWELINA [address] [facility] [place] [place] [address] Specialty Care CoordinatorHematology/Oncology11/14/23 Steffany Damian LSW Social Worker11/16/23 Joey Scott, CANDLES POURER.PADDING MACHINE OPERATOR [address] [facility] [place] [address] Hospice & Palliative Pjvklzxr90/22/24 Anna Rasmussen RN Specialty Care CoordinatorHospice & Palliative Ihafgtpy87/22/24Team Member RelationshipSpecialtyStart DateEnd Date Dick Miranda MD [address] [place] [address] PCP - GeneralFamily Medicine10/21/23 Lo Hancock MD [address] [facility] [place] [address] Hematology/Oncology11/04/23 Gerald Abdi MD [address] [facility] [address] [place], [facility]70 Hematology/Oncology11/04/23 Olegario Moreira MD [address] [place] [address] [address] [place], [facility]70 11/04/23 Lo Hancock MD [address] [place] [address] [address] [place], [facility]70 PhysicianHematology/Oncology11/14/23 Michelle Mejia, CANDLES POURER.PADDING MACHINE OPERATOR [address] [facility] [address] [facility] [address] [place], [facility]70 Nurse PractitionerHematology/Oncology11/14/23 Noemy Chicas, EWELINA [address] [place] [place] [address] Specialty Care CoordinatorHematology/Oncology11/14/23 Steffany Damian LSW Social Worker11/16/23 Joey Scott, CANDLES POURER.PADDING MACHINE OPERATOR [address] [place] [address] Hospice & Palliative Frvmgpbb66/22/24 Anna Rasmussen RN Specialty Care CoordinatorHospice & Palliative Lqtnpgvk49/22/24Team Member RelationshipSpecialtyStart DateEnd Date Dick Miranda MD [address] [place] [address] PCP - GeneralFamily Medicine10/21/23 Lo Hancock MD [address] [place] [address] Hematology/Oncology11/04/23 Gerald Abdi MD [address] [facility] [place] [address] Hematology/Oncology11/04/23 Olegario Moreira MD [address] [facility] [address] [place], [facility]70 11/04/23 Lo Hancock MD [address] [place], [place] [address] [facility] [address] [place], [facility]70 PhysicianHematology/Oncology11/14/23 Michelle Mejia, CANDLES POURER.PADDING MACHINE OPERATOR [address] [facility] [place] [address] Nurse PractitionerHematology/Oncology11/14/23 Noemy Chicas, EWELINA [address] [place] [place] [address] Specialty Care CoordinatorHematology/Oncology11/14/23 Steffany Damian LSW Social Worker11/16/23 Joey Scott, CANDLES POURER.PADDING MACHINE OPERATOR [address] [facility] [address] [address] Hospice & Palliative Pwmamulo79/22/24 Anna Rasmussen, EWELINA Specialty Care CoordinatorHospice & Palliative Pjckrwme93/22/24Team Member RelationshipSpecialtyStart DateEnd Date Dick Miranda MD [address] [place] [address] PCP - GeneralFamily Medicine04/20/23 Nakia Montez DO [address] [facility] 200 [facility] [place] [address] PCP - [place]12/06/23 Montse Duran, EWELINA [address] [place] [address] Registered NurseFamily Medicine10/05/23Team MemberRelationshipSpecialtyStart Date End Date Dick Miranda MD [address] [place] [address] PCP - GeneralFamily Medicine10/21/23 Lo Hancock MD [address] [place] [address] Hematology/Oncology11/04/23 eGrald Abdi MD [address] [place] [place] [address] Hematology/Oncology11/04/23 Olegario Moreira MD [address] [place] [address] 11/04/23 Lo Hancock MD [address] [facility] [place] [place] [address] PhysicianHematology/Oncology11/14/23 Michelle Mejia, ROSA.PADDING MACHINE OPERATOR [address] [place] [address] [place] [address] Nurse PractitionerHematology/Oncology11/14/23 Noemy Chicas, EWELINA [address] [place] [address] [place] [address] Specialty Care CoordinatorHematology/Oncology11/14/23 Steffany Damian LSW Social Worker11/16/23 Joey Scott, CANDLES POURER.PADDING MACHINE OPERATOR [address] [place] [address] [place] [address] Hospice & Palliative Nxmcapdy16/22/24 Anna Rasmussen RN Specialty Care CoordinatorHospice & Palliative Ftdughip70/22/24Team Member RelationshipSpecialtyStart DateEnd Date Dick Miranda MD [address] [place] [address] PCP - GeneralFamily Medicine04/20/23 Nakia Montez DO [address] [address] PCP - [place]12/06/23 Montse Duran, EWELINA [address] [facility] [facility] [place] [address] Registered NurseFamily Medicine10/05/23Team MemberRelationshipSpecialtyStart Date End Date Dick Miranda MD [address] [place] [address] PCP - GeneralFamily Medicine04/20/23 Dick Miranda MD [address] [place] [address] PCP - [place]06/05/24 Montse Duran, RN [address] [facility]. [place], [place] [address] Registered NurseAdventhealth Redmond10/05/23Team MemberRelationshipSpecialtyStart Date End Date Dick Miranda MD [address] [place] [address] PCP - GeneralFamily [facility]04/20/23 Montse Duran, EWELINA [facility] [place] [address] Registered NurseAdventhealth Redmond10/05/23Team MemberRelationshipSpecialtyStart Date End Date Dick Miranda MD [address] [place] [address] PCP - GeneralFamily Medicine10/21/23 Lo Hancock MD [address] [facility] [address] [place], [facility]70 Hematology/Oncology11/04/23 Gerald Abdi MD [address] [facility] [address] [place], [facility]70 Hematology/Oncology11/04/23 Olegario Moreira MD [address] [facility] [place] [address] 11/04/23 Lo Hancock MD [address] [facility] [place] [address] PhysicianHematology/Oncology11/14/23 Michelle Mejia, CANDLES POURER.PADDING MACHINE OPERATOR [address] [facility] [place] [address] Nurse PractitionerHematology/Oncology11/14/23 Noemy Chicas, EWELINA [address] [facility] [place] [place] [address] Specialty Care CoordinatorHematology/Oncology11/14/23 Steffany Damian LSW Social Worker11/16/23 Joey Scott, CANDLES POURER.PADDING MACHINE OPERATOR [address] [facility] [place] [address] Hospice & Palliative Itvmbksk14/22/24 Anna Rasmussen RN Specialty Care CoordinatorHospice & Palliative Mdnntlks50/22/24Team Member RelationshipSpecialtyStart DateEnd Date Dick Miranda MD [address] [place] [address] PCP - GeneralFamily Medicine10/21/23 Lo Hancock MD [address] [facility] [place] [place] [address] Hematology/Oncology11/04/23 Gerald Abdi MD [address] [place] [address] [place] [address] Hematology/Oncology11/04/23 Olegario Moreira MD [address] [facility] [place] [place] [address] 11/04/23 Lo Hancock MD [address] [place] [address] [place] [address] PhysicianHematology/Oncology11/14/23 Michelle Mejia, CANDLES POURER.PADDING MACHINE OPERATOR [address] [facility] [place] [address] Nurse PractitionerHematology/Oncology11/14/23 Noemy Chicas, EWELINA [address] [facility] [place] [place] [address] Specialty Care CoordinatorHematology/Oncology11/14/23 Steffany Damian LSW Social Worker11/16/23 Jeoy Scott, CANDLES POURER.PADDING MACHINE OPERATOR [address] [facility] [place] [address] Hospice & Palliative Cwvrzjhr11/22/24 Anna Rasmussen RN Specialty Care CoordinatorHospice & Palliative Oyigbnvj27/22/24Team Member RelationshipSpecialtyStart DateEnd Date Dick Miranda MD [address] [facility] [address] PCP - GeneralFamily Medicine10/21/23 Lo Hancock MD [address] [facility] [place] [address] Hematology/Oncology11/04/23 Gerald Abdi MD [address] [facility] [address] [place], [facility]70 Hematology/Oncology11/04/23 Olegario Moreira MD [address] [facility] [place] [place] [address] 11/04/23 Lo Hancock MD [address] [place] [address] [place] [address] PhysicianHematology/Oncology11/14/23 Michelle Mejia APRN.PADDING MACHINE OPERATOR [address] [place] [address] [place] [address] Nurse PractitionerHematology/Oncology11/14/23 Noemy Chicas, EWELINA [address] [place] [address] [place] [address] Specialty Care CoordinatorHematology/Oncology11/14/23 Steffany Damian LSW Social Worker11/16/23 Joey Scott APRN.PADDING MACHINE OPERATOR [address] [place] [address] [place] [address] Hospice & Palliative Oyixgrcy54/22/24 Anna Rasmussen RN Specialty Care CoordinatorHospice & Palliative Kmcbpdup31/22/24Team Member RelationshipSpecialtyStart DateEnd Date Dick Miranda MD [address] [facility] [address] PCP - GeneralFamily Medicine10/21/23 Lo Hancock MD [address] [place] [address] [place] [address] Hematology/Oncology11/04/23 Gerald Abdi MD [address] [place] [address] [place] [address] Hematology/Oncology11/04/23 Olgeario Moreira MD [address] [place] [address] [place] [address] 11/04/23 Lo Hancock MD [address] [place] [address] [place] [address] PhysicianHematology/Oncology11/14/23 Michelle Mejia, CANDLES POURER.PADDING MACHINE OPERATOR [address] [place] [address] [place] [address] Nurse PractitionerHematology/Oncology11/14/23 Noemy Chicas, EWELINA [address] [facility] [place] [address] Specialty Care CoordinatorHematology/Oncology11/14/23 Steffany Damian LSW Social Worker11/16/23 Joey Scott, CANDLES POURER.PADDING MACHINE OPERATOR [address] [place] [address] [place] [address] Hospice & Palliative Fvtbnykl59/22/24 Anna Rasmussen RN Specialty Care CoordinatorHospice & Palliative Genqkjik28/22/24Team Member RelationshipSpecialtyStart DateEnd Date Dick Miranda MD [address] [place] [address] PCP - GeneralFamily Medicine04/20/23 Montse Duran, EWELINA [address] [facility] [place] [address] Registered NurseFamily Medicine10/05/23Team MemberRelationshipSpecialtyStart Date End Date Dick Miranda MD [address] [place] [address] PCP - GeneralFamily Medicine10/21/23 Lo Hancock MD [address] [place] [address] [place] [address] Hematology/Oncology11/04/23 Gerald Abdi MD [address] [facility] [place] [address] Hematology/Oncology11/04/23 Olegario Moreira MD [address] [facility] [place] [place] [address] 11/04/23 Lo Hancock MD [address] [place] [address] [place] [address] PhysicianHematology/Oncology11/14/23 Michelle Mejia, CANDLES POURER.PADDING MACHINE OPERATOR [address] [place] [address] [place] [address] Nurse PractitionerHematology/Oncology11/14/23 Noemy Chicas RN [address] [facility] [place] [place] [address] Specialty Care CoordinatorHematology/Oncology11/14/23 Steffany Damian LSW Social Worker11/16/23 Joey Scott, CANDLES POURER.PADDING MACHINE OPERATOR [address] [place] [address] [place] [address] Hospice & Palliative Nnabyyff28/22/24 Anna Rasmussen RN Specialty Care CoordinatorHospice & Palliative Mrfvxtte77/22/24Team Member RelationshipSpecialtyStart DateEnd Date Dick Miranda MD [address] [place] [address] PCP - GeneralFamily Medicine10/21/23 Lo Hancock MD [address] [facility] [place] [place] [address] Hematology/Oncology11/04/23 Gerald Abdi MD [address] [place] [address] [place] [address] Hematology/Oncology11/04/23 Olegario Moreira MD [address] [facility] [address] [place], [facility]70 11/04/23 Lo Hancock MD [address] [place] [address] [place] [address] PhysicianHematology/Oncology11/14/23 Michelle Mejia, CANDLES POURER.PADDING MACHINE OPERATOR [address] [place] [address] [place] [address] Nurse PractitionerHematology/Oncology11/14/23 Noemy Chicas, EWELINA [address] [facility] [place] [address] Specialty Care CoordinatorHematology/Oncology11/14/23 Steffany Damian LSW Social Worker11/16/23 Joey Scott, CANDLES POURER.PADDING MACHINE OPERATOR [address] [facility] [place] [address] Hospice & Palliative Zledhbgt44/22/24 Anna Rasmussen RN Specialty Care CoordinatorHospice & Palliative Yrzqjdoz25/22/24Team Member RelationshipSpecialtyStart DateEnd Date Dick Miranda MD [address] [place] [address] PCP - GeneralFamily Medicine10/21/23 Lo Hancock MD [address] [place] [address] [place], [facility]70 Hematology/Oncology11/04/23 Gerald Abdi MD [address] [place] [address] [place], [facility]70 Hematology/Oncology11/04/23 Olegario Moreira MD [address] [place] [address] [address] [place], [facility]70 11/04/23 Lo Hancock MD [address] [place] [address] [place], [facility]70 PhysicianHematology/Oncology11/14/23 Michelle Mejia, CANDLES POURER.PADDING MACHINE OPERATOR [address] [place] [address] [place], [facility]70 Nurse PractitionerHematology/Oncology11/14/23 Noemy Chicas RN [address] [place] [address] [place] [phone] Specialty Care CoordinatorHematology/Oncology11/14/23 Steffany Damian LSW Social Worker11/16/23 Joey Scott, CANDLES POURER.PADDING MACHINE OPERATOR [address] [place] [address] [place] [address] Hospice & Palliative Ubltjbqx63/22/24 Anna Rasmussen RN Specialty Care CoordinatorHospice & Palliative Kbqfkeud79/22/24Team Member RelationshipSpecialtyStart DateEnd Date Dick Miranda MD PCP - GeneralFamily Medicine09/27/23Team MemberRelationshipSpecialtyStart DateEnd Date Dick Miranda MD [address] [place] [address] PCP - GeneralFamily Medicine10/21/23 Lo Hancock MD [address] [facility] [place] [place] [address] Hematology/Oncology11/04/23 Gerald Abdi MD [address] [place] [address] [place] [address] Hematology/Oncology11/04/23 Olegario Moreira MD [address] [place] [address] [place] [address] 11/04/23 Lo Hancock MD [address] [place] [address] [place] [address] PhysicianHematology/Oncology11/14/23 Michelle Mejia, ROSA.PADDING MACHINE OPERATOR [address] [place] [address] [place] [address] Nurse PractitionerHematology/Oncology11/14/23 Noemy Chicas RN [address] [place] [address] [place] [address] Specialty Care CoordinatorHematology/Oncology11/14/23 Steffany Damian LSW Social Worker11/16/23 Joey Scott, CANDLES POURER.PADDING MACHINE OPERATOR [address] [place] [address] [place] [address] Hospice & Palliative Jmvsczcd16/22/24 Anna Rasmussen RN Specialty Care CoordinatorHospice & Palliative Vskcuyan19/22/24Team Member RelationshipSpecialtyStart DateEnd Date Dick Miranda MD [address] [place] [address] PCP - GeneralFamily Medicine10/21/23 Lo Hancock MD [address] [facility] [place] [place] [address] Hematology/Oncology11/04/23 Gerald Abdi MD [address] [facility] [place] [place] [address] Hematology/Oncology11/04/23 Olegario Moreira MD [address] [facility] [place] [place] [address] 11/04/23 Lo Hancock MD [address] [place] [address] [place] [address] PhysicianHematology/Oncology11/14/23 Michelle Mejia, ROSA.PADDING MACHINE OPERATOR [address] [place] [address] [place] [address] Nurse PractitionerHematology/Oncology11/14/23 Noemy Chicas, EWELINA [address] [facility] [place] [address] Specialty Care CoordinatorHematology/Oncology11/14/23 Steffany Damian LSW Social Worker11/16/23 Joey Scott, ROSA.PADDING MACHINE OPERATOR [address] [facility] [place] [address] Hospice & Palliative Xzjafgli54/22/24 Anna Rasmussen RN Specialty Care CoordinatorHospice & Palliative Jhxwivwa95/22/24Team Member RelationshipSpecialtyStart DateEnd Date Dick Miranda MD [address] [place] [address] PCP - GeneralFamily Medicine04/20/23 Montse Duran, EWELINA [address] [place] [address] Registered NurseFamily Medicine10/05/23Team MemberRelationshipSpecialtyStart Date End Date Dick Miranda MD [address] [place] [address] PCP - GeneralFamily Medicine10/21/23 Lo Hancock MD [address] [facility] [address] [place] [address] Hematology/Oncology11/04/23 Gerald Abdi MD [address] [facility] [address] [place] [address] Hematology/Oncology11/04/23 Olegario Moreira MD [address] [facility] [address] [place], [facility]70 11/04/23 Lo Hancock MD [address] [facility] [address] [place], [facility]70 PhysicianHematology/Oncology11/14/23 Michelle Mejia APRN.PADDING MACHINE OPERATOR [address] [facility] [address] [place], [facility]70 Nurse PractitionerHematology/Oncology11/14/23 Noemy Chicas, EWELINA [address] [place] [address] Specialty Care CoordinatorHematology/Oncology11/14/23 Steffany Damian LSW Social Worker11/16/23 Joey Scott APRN.PADDING MACHINE OPERATOR [address] [place] [address] [place] [address] Hospice & Palliative Cjqamqwn39/22/24 Anna Rasmussen RN Specialty Care CoordinatorHospice & Palliative Uojewlzf93/22/24Team Member RelationshipSpecialtyStart DateEnd Date Dick Miranda MD [address] [place] [address] PCP - GeneralFamily Medicine04/20/23 Montse Duran RN [address] [place] [address] Registered NurseFamily Medicine10/05/23Team MemberRelationshipSpecialtyStart Date End Date Dick Miranda MD [address] [place] [address] PCP - GeneralFamily Medicine04/20/23 Montse Duran RN [address] [place] [address] Registered NurseHenry County Health Centerly Medicine10/05/23Team MemberRelationshipSpecialtyStart Date End Date Dick Miranda MD [address] [place] [address] [facility]04/20/23 Montse Duran RN [address] [place] [address] [facility]10/05/23Team MemberRelationshipSpecialtyStart Date End Date Dick Miranda MD [address] [place] [address] [facility]04/20/23 Montse Duran RN [address] [facility] [place] [address] [facility]10/05/23Team MemberRelationshipSpecialtyStart Date End Date Dick Miranda MD [address] [place] [address] [facility]04/20/23 Montse Duran RN [address] [facility] [place] [address] [facility]10/05/23Team MemberRelationshipSpecialtyStart Date End Date Dick Miranda MD [address] [place] [address] [facility]04/20/23 Montse Duran RN [address] [facility] [place] [address] [facility]10/05/23Team MemberRelationshipSpecialtyStart Date End Date Dick Miranda MD [address] [place] [address] [facility]10/21/23 Lo Hancock MD [address] [place] [address] [place] [address] Hematology/Oncology11/04/23 Gerald Abdi MD [address] [facility] [place] [place] [address] Hematology/Oncology11/04/23 Olegario Moreira MD [address] [facility] [place] [place] [address] 11/04/23 Lo Hancock MD [address] [place] [address] [place] [address] PhysicianHematology/Oncology11/14/23 Michelle Mejia, CANDLES POURER.PADDING MACHINE OPERATOR [address] [facility] [place] [place] [address] Nurse PractitionerHematology/Oncology11/14/23 Noemy Chicas, EWELINA [address] [facility] [place] [place] [address] Specialty Care CoordinatorHematology/Oncology11/14/23 Steffany Damian LSW Social Worker11/16/23 Joey Scott, CANDLES POURER.PADDING MACHINE OPERATOR [address] [facility] [place] [address] Hospice & Palliative Exrgevbn11/22/24 Anna Rasmussen RN Specialty Care CoordinatorHospice & Palliative Afrzxisd88/22/24Team Member RelationshipSpecialtyStart DateEnd Date Dick Miranda MD [address] [place] [address] PCP - GeneralFamily Medicine10/21/23 Lo Hancock MD [address] [facility] [address] [place] [phone] Hematology/Oncology11/04/23 Gerald Abdi MD [address] [place] [address] [place] 3456170 Hematology/Oncology11/04/23 Olegario Moreira MD [address] [place] [address] [address] [place], [facility]70 11/04/23 Lo Hancock MD [address] [place] [address] [place] [address] PhysicianHematology/Oncology11/14/23 Michelle Mejia, ROSA.PADDING MACHINE OPERATOR [address] [place] [address] [address] [place] 3456170 Nurse PractitionerHematology/Oncology11/14/23 Noemy Chicas, EWELINA [address] [place] [address] [place] [address] Specialty Care CoordinatorHematology/Oncology11/14/23 Steffany Damian LSW Social Worker11/16/23 Joey Scott, CANDLES POURER.PADDING MACHINE OPERATOR [address] [place] [address] [place] [address] Hospice & Palliative Kcomzpdq02/22/24 Anna Rasmussen RN Specialty Care CoordinatorHospice & Palliative Yjoompmi61/22/24Team Member RelationshipSpecialtyStart DateEnd Date Dick Miranda MD [address] [place] [address] PCP - GeneralFamily Medicine04/20/23Team MemberRelationshipSpecialtyStart DateEnd Date Dick Miranda MD [address] [place] [address] PCP - GeneralFamily Medicine04/20/23Team MemberRelationshipSpecialtyStart DateEnd Date Dick Miranda MD [address] [place] [address] PCP - GeneralFamily Medicine04/20/23Team MemberRelationshipSpecialtyStart DateEnd Date Dick Miranda MD [address] [place] [address] PCP - GeneralFamily Medicine04/20/23Team MemberRelationshipSpecialtyStart DateEnd Date Dick Miranda MD PCP - GeneralFamily Medicine09/27/23Team MemberRelationshipSpecialtyStart DateEnd Date Dick Miranda MD PCP - GeneralFamily Medicine09/27/23Team MemberRelationshipSpecialtyStart DateEnd Date Dick Miranda MD [address] [place] [address] PCP - GeneralFamily Medicine04/20/23Team MemberRelationshipSpecialtyStart DateEnd Date Dick Miranda MD [address] [place] [address] PCP - GeneralFamily Medicine04/20/23Team MemberRelationshipSpecialtyStart DateEnd Date Dick Miranda MD [address] [place] [address] PCP - GeneralFamily Medicine04/20/23Team MemberRelationshipSpecialtyStart DateEnd Date Dick Miranda MD [address] [place] [address] PCP - GeneralFamily Medicine04/20/23Team MemberRelationshipSpecialtyStart DateEnd Date Dick Miranda MD PCP - GeneralFamily Medicine09/27/23Team MemberRelationshipSpecialtyStart DateEnd Date Dick Miranda MD [address] [place] [address] PCP - GeneralFamily Medicine04/20/23Team MemberRelationshipSpecialtyStart DateEnd Date Dick Miranda MD [address] [place] [address] PCP - GeneralFamily Medicine04/20/23Team MemberRelationshipSpecialtyStart DateEnd Date Dick Miranda MD [address] [place] [address] PCP - GeneralFamily Medicine04/20/23Team MemberRelationshipSpecialtyStart DateEnd Date Dick Miranda MD [address] [place] [address] PCP - GeneralFamily Medicine04/20/23Team MemberRelationshipSpecialtyStart DateEnd Date Dick Miranda MD [address] [place] [address] PCP - GeneralHenry County Health Centerly Medicine10/21/23 Lo Hancock MD [address] [facility] [place] [address] Hematology/Oncology11/04/23 Gerald Abdi MD [address] [facility] [place] [address] Hematology/Oncology11/04/23 Olegario Moreira MD [address] [facility] [place] [address] 11/04/23 Lo Hancock MD [address] [place] [address] [place] [address] PhysicianHematology/Oncology11/14/23 Michelle Mejia, CANDLES POURER.PADDING MACHINE OPERATOR [address] [facility] [place] [address] Nurse PractitionerHematology/Oncology11/14/23 Noemy Chicas, EWELINA [address] [facility] [place] [address] Specialty Care CoordinatorHematology/Oncology11/14/23 Steffany Damian LSW Social Worker11/16/23 Joey Scott, CANDLES POURER.PADDING MACHINE OPERATOR [address] [facility] [place] [address] Hospice & Palliative Jzihzmuc93/22/24 Anna Rasmussen RN Specialty Care CoordinatorHospice & Palliative Lnhwpurn01/22/24Team Member RelationshipSpecialtyStart DateEnd Date Dick Miranda MD [address] [place] [address] PCP - GeneralFamily Medicine10/21/23 Lo Hancock MD [address] [facility] [place] [address] Hematology/Oncology11/04/23 Gerald Abdi MD [address] [facility] [place] [address] Hematology/Oncology11/04/23 Olegario Moreira MD [address] [facility] [place] [address] 11/04/23 Lo Hancock MD [address] [facility] [place] [address] PhysicianHematology/Oncology11/14/23 Michelle Mejia, CANDLES POURER.PADDING MACHINE OPERATOR [address] [facility] [place] [address] Nurse PractitionerHematology/Oncology11/14/23 Noemy Chicas, EWELINA [address] [place] [address] Specialty Care CoordinatorHematology/Oncology11/14/23 Steffany Damian LSW Social Worker11/16/23 Joey Scott, CANDLES POURER.PADDING MACHINE OPERATOR [address] [facility] [place] [address] Hospice & Palliative Byftawkj28/22/24 Anna Rasmussen, RN Specialty Care CoordinatorHospice & Palliative Hncmfbgn77/22/24 Team Status: Active Member Role Status Dates Dick Miranda MD Primary Care Provider Active Team Status: Active Member Role Status Dates Basia Vega MD Primary Care Provider Active Start: August 31, 2024 Melinda Doss , DESK SERGEANT-CAttending ProviderActiveStart: August 31, 2024 Team Status: Active Member Role Status Dates Dick Miranda MD Primary Care Provider Active S tart: October 27, 2024 Halie Coffman ProviderActiveStart: October 27, 2024 Clarence Stevens DOAdmit ProviderActiveStart: October 27, 2024 Clarence Stevens DOAttending ProviderActiveStart: October 27, 2024 Team Status: Active Member Role Status Dates Dick Miranda MD Primary Care Provider Active S tart: October 27, 2024 Wendy Ochoa MDEmeannemarie ProviderActiveStart: October 27, 2024 Clarence Stevens DOAdmit ProviderActiveStart: October 27, 2024 Clarence Stevens DOOther ProviderActiveStart: October 27, 2024 Enoc Barron MDAttending ProviderActiveStart: October 27, 2024 Enoc Barron MDOther ProviderActiveStart: October 27, 2024 Team MemberRelationshipSpecialtyStart DateEnd Date Dick Miranda MD [address] [place] [address] PCP - GeneralFamily Medicine10/21/23 Lo Hancock MD [address] [place] [address] Hematology/Oncology11/04/23 Gerald Abdi MD [address] [place] [address] Hematology/Oncology11/04/23 Olegario Moreira MD [address] [place] [address] [place] [address] 11/04/23 Lo Hancock MD [address] [place] [address] [place] [address] PhysicianHematology/Oncology11/14/23 Michelle Mejia, CANDLES POURER.PADDING MACHINE OPERATOR [address] [place] [address] [place] [address] Nurse PractitionerHematology/Oncology11/14/23 Noemy Chicas RN [address] [place] [address] [place] [address] Specialty Care CoordinatorHematology/Oncology11/14/23 Steffany Damian LSW Social Worker11/16/23 Joey Scott, CANDLES POURER.PADDING MACHINE OPERATOR [address] [place] [address] [place] [address] Hospice & Palliative Zrobspzp64/22/24 Anna Rasmussen RN Specialty Care CoordinatorHospice & Palliative Kyktddbj88/22/24Team Member RelationshipSpecialtyStart DateEnd Date Dick Miranda MD [address] [place] [address] PCP - GeneralFamily Medicine10/21/23 Lo Hancock MD [address] [place] [address] [place] [address] Hematology/Oncology11/04/23 Gerald Abdi MD [address] [place] [address] [place] [address] Hematology/Oncology11/04/23 Olegario Moreira MD [address] [place] [address] 11/04/23 Lo Hancock MD [address] [place] [address] [place] [address] PhysicianHematology/Oncology11/14/23 Michelle Mejia, CANDLES POURER.PADDING MACHINE OPERATOR [address] [place] [place] [address] Nurse PractitionerHematology/Oncology11/14/23 Noemy Chicas, EWELINA [address] [place] [place] [address] Specialty Care CoordinatorHematology/Oncology11/14/23 Steffany Damian LSW Social Worker11/16/23 Joey Scott, CANDLES POURER.PADDING MACHINE OPERATOR [address] [place] [address] [place] [address] Hospice & Palliative Zdnbpdwr45/22/24 Anna Rasmussen RN Specialty Care CoordinatorHospice & Palliative Onxcuatp07/22/24Team Member RelationshipSpecialtyStart DateEnd Date Dick Miranda MD [address] [place] [address] PCP - GeneralFamily Medicine10/21/23 Lo Hancock MD [address] [place] [address] Hematology/Oncology11/04/23 Gerald Abdi MD [address] [place] [address] [place] [address] Hematology/Oncology11/04/23 Olegario Moreira MD [address] [place] [address] 11/04/23 Lo Hancock MD [address] [place] [address] [place] [address] PhysicianHematology/Oncology11/14/23 Michelle Mejia, CANDLES POURER.PADDING MACHINE OPERATOR [address] [place] [address] [place] [address] Nurse PractitionerHematology/Oncology11/14/23 Noemy Chicas RN [address] [place] [place] [address] Specialty Care CoordinatorHematology/Oncology11/14/23 Steffany Damian LSW Social Worker11/16/23 Joey Scott, CANDLES POURER.PADDING MACHINE OPERATOR [address] [place] [address] [place] [address] Hospice & Palliative Acgeosqk95/22/24 Anna Rasmussen RN Specialty Care CoordinatorHospice & Palliative Eqfteueg23/22/24Team Member RelationshipSpecialtyStart DateEnd Date Dick Miranda MD [address] [place] [address] PCP - GeneralFamily Medicine10/21/23 Lo Hancock MD [address] [place] [address] [place] [address] Hematology/Oncology11/04/23 Gerald Abdi MD [address] [place] [address] [place] [address] Hematology/Oncology11/04/23 Olegario Moreira MD [address] [place] [address] [place] [address] 11/04/23 Lo Hancock MD [address] [place] [address] [place] [address] PhysicianHematology/Oncology11/14/23 Michelle Mejia, CANDLES POURER.PADDING MACHINE OPERATOR [address] [place] [address] [place] [address] Nurse PractitionerHematology/Oncology11/14/23 Noemy Chicas RN [address] [place] [address] [place] [address] Specialty Care CoordinatorHematology/Oncology11/14/23 Steffany Damian LSW Social Worker11/16/23 Joey Scott, CANDLES POURER.PADDING MACHINE OPERATOR [address] [place] [address] [place] [address] Hospice & Palliative Aqfviloa61/22/24 Anna Rasmussen RN Specialty Care CoordinatorHospice & Palliative Ecybqhtu87/22/24Team Member RelationshipSpecialtyStart DateEnd Date Dick Miranda MD [address] [place] [address] PCP - GeneralFamily Medicine10/21/23 Lo Hancock MD [address] [place] [address] [place] [address] Hematology/Oncology11/04/23 Gerald Abdi MD [address] [facility] [place] [address] Hematology/Oncology11/04/23 Olegario Moreira MD [address] [place] [address] [place] [address] 11/04/23 Lo Hancock MD [address] [place] [address] [place] [address] PhysicianHematology/Oncology11/14/23 Michelle Mejia, CANDLES POURER.PADDING MACHINE OPERATOR [address] [place] [address] [place] [address] Nurse PractitionerHematology/Oncology11/14/23 Noemy Chicas RN [address] [place] [address] [place] [address] Specialty Care CoordinatorHematology/Oncology11/14/23 Steffany Damian LSW Social Worker11/16/23 Joey Scott, CANDLES POURER.PADDING MACHINE OPERATOR [address] [place] [address] [place] [id number] Hospice & Palliative Zhbbbwrp29/22/24 Anna Rasmussen RN Specialty Care CoordinatorHospice & Palliative Kvexscfw77/22/24 Team Status: Active Member Role Status Dates Dick Miranda MD Primary Care Provider Active S tart: November 09, 2024 Cristy Magana ProviderActiveStart: November 09, 2024 Team Status: Inactive Member Role Status Dates Dick Miranda MD Primary Care Provider Active S tart: November 21, 2024 End: November 21, 2024Cristy Perez ProviderActiveStart: November 21, 2024 End: November 21, 2024 Team Status: Active Member Role Status Dates Dick Miranda MD Primary Care Provider Active S tart: November 23, 2024 Cristy Magana ProviderActiveStart: November 23, 2024 Team Status: Active Member Role Status Dates Dick Miranda MD Primary Care Provider Active S tart: December 07, 2024 Cristy Magana ProviderActiveStart: December 07, 2024 Team Status: Inactive Member Role Status Dates Dick Miranda MD Primary Care Provider Active S tart: December 10, 2024 End: December 10, 2024Dick Cristy Miranda ProviderActiveStart: December 10, 2024 End: December 10, 2024 Source Comments (unrecognize d section and content) In the event this informatio n is protected by the Federal Confidentiality of Alcohol and Drug Abuse Patient Records regulations: The Federal rules restrict any use of the information to criminally investigate or prosecute any alcohol or drug abuse patient.[facility]In the event this information is protected by the Federal Confidentiality of Alcohol and Drug Abuse Patient Records regulations: The Federal rules restrict any use of the information to criminally investigate or prosecute any alcohol or drug abuse patient.[facility] HospitalIn the event this information is protected by the Federal Confidentiality of Alcohol and Drug Abuse Patient Records regulations: The Federal rules restrict any use of the information to criminally investigate or prosecute any alcohol or drug abuse patient.[facility] HospitalIn the event this information is protected by the Federal Confidentiality of Alcohol and Drug Abuse Patient Records regulations: The Federal rules restrict any use of the information to criminally investigate or prosecute any alcohol or drug abuse patient.[facility] HospitalIn the event this information is protected by the Federal Confidentiality of Alcohol and Drug Abuse Patient Records regulations: The Federal rules restrict any use of the information to criminally investigate or prosecute any alcohol or drug abuse patient.[facility] HospitalIn the event this information is protected by the Federal Confidentiality of Alcohol and Drug Abuse Patient Records regulations: The Federal rules restrict any use of the information to criminally investigate or prosecute any alcohol or drug abuse patient.[facility] HospitalIn the event this information is protected by the Federal Confidentiality of Alcohol and Drug Abuse Patient Records regulations: The Federal rules restrict any use of the information to criminally investigate or prosecute any alcohol or drug abuse patient.[facility] HospitalIn the event this information is protected by the Federal Confidentiality of Alcohol and Drug Abuse Patient Records regulations: The Federal rules restrict any use of the information to criminally investigate or prosecute any alcohol or drug abuse patient.[facility] HospitalIn the event this information is protected by the Federal Confidentiality of Alcohol and Drug Abuse Patient Records regulations: The Federal rules restrict any use of the information to criminally investigate or prosecute any alcohol or drug abuse patient.[facility] HospitalIn the event this information is protected by the Federal Confidentiality of Alcohol and Drug Abuse Patient Records regulations: The Federal rules restrict any use of the information to criminally investigate or prosecute any alcohol or drug abuse patient.[facility] HospitalIn the event this information is protected by the Federal Confidentiality of Alcohol and Drug Abuse Patient Records regulations: The Federal rules restrict any use of the information to criminally investigate or prosecute any alcohol or drug abuse patient.[facility] HospitalIn the event this information is protected by the Federal Confidentiality of Alcohol and Drug Abuse Patient Records regulations: The Federal rules restrict any use of the information to criminally investigate or prosecute any alcohol or drug abuse patient.[facility] HospitalIn the event this information is protected by the Federal Confidentiality of Alcohol and Drug Abuse Patient Records regulations: The Federal rules restrict any use of the information to criminally investigate or prosecute any alcohol or drug abuse patient.[facility] HospitalIn the event this information is protected by the Federal Confidentiality of Alcohol and Drug Abuse Patient Records regulations: The Federal rules restrict any use of the information to criminally investigate or prosecute any alcohol or drug abuse patient.[facility] HospitalIn the event this information is protected by the Federal Confidentiality of Alcohol and Drug Abuse Patient Records regulations: The Federal rules restrict any use of the information to criminally investigate or prosecute any alcohol or drug abuse patient.[facility] HospitalIn the event this information is protected by the Federal Confidentiality of Alcohol and Drug Abuse Patient Records regulations: The Federal rules restrict any use of the information to criminally investigate or prosecute any alcohol or drug abuse patient.[facility] HospitalIn the event this information is protected by the Federal Confidentiality of Alcohol and Drug Abuse Patient Records regulations: The Federal rules restrict any use of the information to criminally investigate or prosecute any alcohol or drug abuse patient.[facility] HospitalIn the event this information is protected by the Federal Confidentiality of Alcohol and Drug Abuse Patient Records regulations: The Federal rules restrict any use of the information to criminally investigate or prosecute any alcohol or drug abuse patient.[facility] HospitalIn the event this information is protected by the Federal Confidentiality of Alcohol and Drug Abuse Patient Records regulations: The Federal rules restrict any use of the information to criminally investigate or prosecute any alcohol or drug abuse patient.[facility] HospitalIn the event this information is protected by the Federal Confidentiality of Alcohol and Drug Abuse Patient Records regulations: The Federal rules restrict any use of the information to criminally investigate or prosecute any alcohol or drug abuse patient.[facility] HospitalIn the event this information is protected by the Federal Confidentiality of Alcohol and Drug Abuse Patient Records regulations: The Federal rules restrict any use of the information to criminally investigate or prosecute any alcohol or drug abuse patient.[facility] HospitalIn the event this information is protected by the Federal Confidentiality of Alcohol and Drug Abuse Patient Records regulations: The Federal rules restrict any use of the information to criminally investigate or prosecute any alcohol or drug abuse patient.[facility] HospitalIn the event this information is protected by the Federal Confidentiality of Alcohol and Drug Abuse Patient Records regulations: The Federal rules restrict any use of the information to criminally investigate or prosecute any alcohol or drug abuse patient.[facility] HospitalIn the event this information is protected by the Federal Confidentiality of Alcohol and Drug Abuse Patient Records regulations: The Federal rules restrict any use of the information to criminally investigate or prosecute any alcohol or drug abuse patient.[facility] HospitalIn the event this information is protected by the Federal Confidentiality of Alcohol and Drug Abuse Patient Records regulations: The Federal rules restrict any use of the information to criminally investigate or prosecute any alcohol or drug abuse patient.[facility] HospitalIn the event this information is protected by the Federal Confidentiality of Alcohol and Drug Abuse Patient Records regulations: The Federal rules restrict any use of the information to criminally investigate or prosecute any alcohol or drug abuse patient.[facility] HospitalIn the event this information is protected by the Federal Confidentiality of Alcohol and Drug Abuse Patient Records regulations: The Federal rules restrict any use of the information to criminally investigate or prosecute any alcohol or drug abuse patient.[facility] HospitalIn the event this information is protected by the Federal Confidentiality of Alcohol and Drug Abuse Patient Records regulations: The Federal rules restrict any use of the information to criminally investigate or prosecute any alcohol or drug abuse patient.[facility] HospitalIn the event this information is protected by the Federal Confidentiality of Alcohol and Drug Abuse Patient Records regulations: The Federal rules restrict any use of the information to criminally investigate or prosecute any alcohol or drug abuse patient.[facility] HospitalIn the event this information is protected by the Federal Confidentiality of Alcohol and Drug Abuse Patient Records regulations: The Federal rules restrict any use of the information to criminally investigate or prosecute any alcohol or drug abuse patient.[facility] HospitalIn the event this information is protected by the Federal Confidentiality of Alcohol and Drug Abuse Patient Records regulations: The Federal rules restrict any use of the information to criminally investigate or prosecute any alcohol or drug abuse patient.[facility] HospitalIn the event this information is protected by the Federal Confidentiality of Alcohol and Drug Abuse Patient Records regulations: The Federal rules restrict any use of the information to criminally investigate or prosecute any alcohol or drug abuse patient.[facility] HospitalIn the event this information is protected by the Federal Confidentiality of Alcohol and Drug Abuse Patient Records regulations: The Federal rules restrict any use of the information to criminally investigate or prosecute any alcohol or drug abuse patient.[facility] HospitalIn the event this information is protected by the Federal Confidentiality of Alcohol and Drug Abuse Patient Records regulations: The Federal rules restrict any use of the information to criminally investigate or prosecute any alcohol or drug abuse patient.[facility] HospitalIn the event this information is protected by the Federal Confidentiality of Alcohol and Drug Abuse Patient Records regulations: The Federal rules restrict any use of the information to criminally investigate or prosecute any alcohol or drug abuse patient.[facility] HospitalIn the event this information is protected by the Federal Confidentiality of Alcohol and Drug Abuse Patient Records regulations: The Federal rules restrict any use of the information to criminally investigate or prosecute any alcohol or drug abuse patient.[facility] HospitalIn the event this information is protected by the Federal Confidentiality of Alcohol and Drug Abuse Patient Records regulations: The Federal rules restrict any use of the information to criminally investigate or prosecute any alcohol or drug abuse patient.[facility] HospitalIn the event this information is protected by the Federal Confidentiality of Alcohol and Drug Abuse Patient Records regulations: The Federal rules restrict any use of the information to criminally investigate or prosecute any alcohol or drug abuse patient.[facility] HospitalIn the event this information is protected by the Federal Confidentiality of Alcohol and Drug Abuse Patient Records regulations: The Federal rules restrict any use of the information to criminally investigate or prosecute any alcohol or drug abuse patient.[facility] HospitalIn the event this information is protected by the Federal Confidentiality of Alcohol and Drug Abuse Patient Records regulations: The Federal rules restrict any use of the information to criminally investigate or prosecute any alcohol or drug abuse patient.[facility] HospitalIn the event this information is protected by the Federal Confidentiality of Alcohol and Drug Abuse Patient Records regulations: The Federal rules restrict any use of the information to criminally investigate or prosecute any alcohol or drug abuse patient.[facility] HospitalIn the event this information is protected by the Federal Confidentiality of Alcohol and Drug Abuse Patient Records regulations: The Federal rules restrict any use of the information to criminally investigate or prosecute any alcohol or drug abuse patient.[facility] HospitalIn the event this information is protected by the Federal Confidentiality of Alcohol and Drug Abuse Patient Records regulations: The Federal rules restrict any use of the information to criminally investigate or prosecute any alcohol or drug abuse patient.[facility] HospitalIn the event this information is protected by the Federal Confidentiality of Alcohol and Drug Abuse Patient Records regulations: The Federal rules restrict any use of the information to criminally investigate or prosecute any alcohol or drug abuse patient.[facility] HospitalIn the event this information is protected by the Federal Confidentiality of Alcohol and Drug Abuse Patient Records regulations: The Federal rules restrict any use of the information to criminally investigate or prosecute any alcohol or drug abuse patient.[facility] ClinicIn the event this information is protected by the Federal Confidentiality of Alcohol and Drug Abuse Patient Records regulations: The Federal rules restrict any use of the information to criminally investigate or prosecute any alcohol or drug abuse patient.[facility] HospitalIn the event this information is protected by the Federal Confidentiality of Alcohol and Drug Abuse Patient Records regulations: The Federal rules restrict any use of the information to criminally investigate or prosecute any alcohol or drug abuse patient.[facility] HospitalIn the event this information is protected by the Federal Confidentiality of Alcohol and Drug Abuse Patient Records regulations: The Federal rules restrict any use of the information to criminally investigate or prosecute any alcohol or drug abuse patient.[facility] HospitalIn the event this information is protected by the Federal Confidentiality of Alcohol and Drug Abuse Patient Records regulations: The Federal rules restrict any use of the information to criminally investigate or prosecute any alcohol or drug abuse patient.[facility] HospitalIn the event this information is protected by the Federal Confidentiality of Alcohol and Drug Abuse Patient Records regulations: The Federal rules restrict any use of the information to criminally investigate or prosecute any alcohol or drug abuse patient.[facility] HospitalIn the event this information is protected by the Federal Confidentiality of Alcohol and Drug Abuse Patient Records regulations: The Federal rules restrict any use of the information to criminally investigate or prosecute any alcohol or drug abuse patient.[facility] HospitalIn the event this information is protected by the Federal Confidentiality of Alcohol and Drug Abuse Patient Records regulations: The Federal rules restrict any use of the information to criminally investigate or prosecute any alcohol or drug abuse patient.[facility] HospitalIn the event this information is protected by the Federal Confidentiality of Alcohol and Drug Abuse Patient Records regulations: The Federal rules restrict any use of the information to criminally investigate or prosecute any alcohol or drug abuse patient.[facility] HospitalIn the event this information is protected by the Federal Confidentiality of Alcohol and Drug Abuse Patient Records regulations: The Federal rules restrict any use of the information to criminally investigate or prosecute any alcohol or drug abuse patient.[facility] HospitalIn the event this information is protected by the Federal Confidentiality of Alcohol and Drug Abuse Patient Records regulations: The Federal rules restrict any use of the information to criminally investigate or prosecute any alcohol or drug abuse patient.[facility] HospitalIn the event this information is protected by the Federal Confidentiality of Alcohol and Drug Abuse Patient Records regulations: The Federal rules restrict any use of the information to criminally investigate or prosecute any alcohol or drug abuse patient.[facility] HospitalIn the event this information is protected by the Federal Confidentiality of Alcohol and Drug Abuse Patient Records regulations: The Federal rules restrict any use of the information to criminally investigate or prosecute any alcohol or drug abuse patient.[facility] HospitalIn the event this information is protected by the Federal Confidentiality of Alcohol and Drug Abuse Patient Records regulations: The Federal rules restrict any use of the information to criminally investigate or prosecute any alcohol or drug abuse patient.[facility] HospitalIn the event this information is protected by the Federal Confidentiality of Alcohol and Drug Abuse Patient Records regulations: The Federal rules restrict any use of the information to criminally investigate or prosecute any alcohol or drug abuse patient.[facility] HospitalIn the event this information is protected by the Federal Confidentiality of Alcohol and Drug Abuse Patient Records regulations: The Federal rules restrict any use of the information to criminally investigate or prosecute any alcohol or drug abuse patient.[facility] HospitalIn the event this information is protected by the Federal Confidentiality of Alcohol and Drug Abuse Patient Records regulations: The Federal rules restrict any use of the information to criminally investigate or prosecute any alcohol or drug abuse patient.[facility] HospitalIn the event this information is protected by the Federal Confidentiality of Alcohol and Drug Abuse Patient Records regulations: The Federal rules restrict any use of the information to criminally investigate or prosecute any alcohol or drug abuse patient.[facility] HospitalIn the event this information is protected by the Federal Confidentiality of Alcohol and Drug Abuse Patient Records regulations: The Federal rules restrict any use of the information to criminally investigate or prosecute any alcohol or drug abuse patient.[facility] HospitalIn the event this information is protected by the Federal Confidentiality of Alcohol and Drug Abuse Patient Records regulations: The Federal rules restrict any use of the information to criminally investigate or prosecute any alcohol or drug abuse patient.[facility] HospitalIn the event this information is protected by the Federal Confidentiality of Alcohol and Drug Abuse Patient Records regulations: The Federal rules restrict any use of the information to criminally investigate or prosecute any alcohol or drug abuse patient.[facility] HospitalIn the event this information is protected by the Federal Confidentiality of Alcohol and Drug Abuse Patient Records regulations: The Federal rules restrict any use of the information to criminally investigate or prosecute any alcohol or drug abuse patient.[facility] HospitalIn the event this information is protected by the Federal Confidentiality of Alcohol and Drug Abuse Patient Records regulations: The Federal rules restrict any use of the information to criminally investigate or prosecute any alcohol or drug abuse patient.[facility] HospitalIn the event this information is protected by the Federal Confidentiality of Alcohol and Drug Abuse Patient Records regulations: The Federal rules restrict any use of the information to criminally investigate or prosecute any alcohol or drug abuse patient.[facility] HospitalIn the event this information is protected by the Federal Confidentiality of Alcohol and Drug Abuse Patient Records regulations: The Federal rules restrict any use of the information to criminally investigate or prosecute any alcohol or drug abuse patient.[facility] HospitalIn the event this information is protected by the Federal Confidentiality of Alcohol and Drug Abuse Patient Records regulations: The Federal rules restrict any use of the information to criminally investigate or prosecute any alcohol or drug abuse patient.[facility] HospitalIn the event this information is protected by the Federal Confidentiality of Alcohol and Drug Abuse Patient Records regulations: The Federal rules restrict any use of the information to criminally investigate or prosecute any alcohol or drug abuse patient.[facility] HospitalIn the event this information is protected by the Federal Confidentiality of Alcohol and Drug Abuse Patient Records regulations: The Federal rules restrict any use of the information to criminally investigate or prosecute any alcohol or drug abuse patient.[facility] HospitalIn the event this information is protected by the Federal Confidentiality of Alcohol and Drug Abuse Patient Records regulations: The Federal rules restrict any use of the information to criminally investigate or prosecute any alcohol or drug abuse patient.[facility] HospitalIn the event this information is protected by the Federal Confidentiality of Alcohol and Drug Abuse Patient Records regulations: The Federal rules restrict any use of the information to criminally investigate or prosecute any alcohol or drug abuse patient.[facility] HospitalIn the event this information is protected by the Federal Confidentiality of Alcohol and Drug Abuse Patient Records regulations: The Federal rules restrict any use of the information to criminally investigate or prosecute any alcohol or drug abuse patient.[facility] HospitalIn the event this information is protected by the Federal Confidentiality of Alcohol and Drug Abuse Patient Records regulations: The Federal rules restrict any use of the information to criminally investigate or prosecute any alcohol or drug abuse patient.[facility] HospitalIn the event this information is protected by the Federal Confidentiality of Alcohol and Drug Abuse Patient Records regulations: The Federal rules restrict any use of the information to criminally investigate or prosecute any alcohol or drug abuse patient.[facility] HospitalIn the event this information is protected by the Federal Confidentiality of Alcohol and Drug Abuse Patient Records regulations: The Federal rules restrict any use of the information to criminally investigate or prosecute any alcohol or drug abuse patient.[facility] HospitalIn the event this information is protected by the Federal Confidentiality of Alcohol and Drug Abuse Patient Records regulations: The Federal rules restrict any use of the information to criminally investigate or prosecute any alcohol or drug abuse patient.[facility] HospitalIn the event this information is protected by the Federal Confidentiality of Alcohol and Drug Abuse Patient Records regulations: The Federal rules restrict any use of the information to criminally investigate or prosecute any alcohol or drug abuse patient.[facility] HospitalIn the event this information is protected by the Federal Confidentiality of Alcohol and Drug Abuse Patient Records regulations: The Federal rules restrict any use of the information to criminally investigate or prosecute any alcohol or drug abuse patient.[facility] HospitalIn the event this information is protected by the Federal Confidentiality of Alcohol and Drug Abuse Patient Records regulations: The Federal rules restrict any use of the information to criminally investigate or prosecute any alcohol or drug abuse patient.[facility] HospitalIn the event this information is protected by the Federal Confidentiality of Alcohol and Drug Abuse Patient Records regulations: The Federal rules restrict any use of the information to criminally investigate or prosecute any alcohol or drug abuse patient.[facility] HospitalIn the event this information is protected by the Federal Confidentiality of Alcohol and Drug Abuse Patient Records regulations: The Federal rules restrict any use of the information to criminally investigate or prosecute any alcohol or drug abuse patient.[facility] HospitalIn the event this information is protected by the Federal Confidentiality of Alcohol and Drug Abuse Patient Records regulations: The Federal rules restrict any use of the information to criminally investigate or prosecute any alcohol or drug abuse patient.[facility] HospitalIn the event this information is protected by the Federal Confidentiality of Alcohol and Drug Abuse Patient Records regulations: The Federal rules restrict any use of the information to criminally investigate or prosecute any alcohol or drug abuse patient.[facility] HospitalIn the event this information is protected by the Federal Confidentiality of Alcohol and Drug Abuse Patient Records regulations: The Federal rules restrict any use of the information to criminally investigate or prosecute any alcohol or drug abuse patient.[facility] HospitalIn the event this information is protected by the Federal Confidentiality of Alcohol and Drug Abuse Patient Records regulations: The Federal rules restrict any use of the information to criminally investigate or prosecute any alcohol or drug abuse patient.[facility] HospitalIn the event this information is protected by the Federal Confidentiality of Alcohol and Drug Abuse Patient Records regulations: The Federal rules restrict any use of the information to criminally investigate or prosecute any alcohol or drug abuse patient.[facility] HospitalIn the event this information is protected by the Federal Confidentiality of Alcohol and Drug Abuse Patient Records regulations: The Federal rules restrict any use of the information to criminally investigate or prosecute any alcohol or drug abuse patient.[facility] HospitalIn the event this information is protected by the Federal Confidentiality of Alcohol and Drug Abuse Patient Records regulations: The Federal rules restrict any use of the information to criminally investigate or prosecute any alcohol or drug abuse patient.[facility] Goals (unrecognized section and content) Goals may [...] BE BASED ON THE PRIMARY CLINICAL RECORDS. [facility] CenterRococ[facility] Software [facility]. provides no warranty or guarantee of the accuracy or completeness of information in this document.
== END 2025-01-04 13:45 | disposition home or self-care (01) ==
LOC: MRI 13:44
PROVIDERS: PCP Family Medicine; Visit Provider Nurse Practitioner
DX: M48.04 Spinal stenosis, thoracic region (principal)
CPT/HCPCS: 72146

== ENCOUNTER 2025-01-07 08:53 | Day surgery (SDC) | payer MEDICARE, SELFPAY ==
--- OUTSIDE RECORDS SUMMARY | 2025-01-07 08:57 | XMS_ITS ---
Author Organization [facility] Address [address] [place] [id number] Care Team Providers Care Emergency Communications Dispatcher Name Role Phone Dick Boss MD Primary Care Provider Preston Lucio MD Unavailable [phone] Gerald Dumont MD Unavailable Kathy Ruiz MD Unavailable [phone] Preston Lucio MD Unavailable [phone] Michelle Galvez PALLIATIVE CARE PHYSICIAN.AUTOMOTIVE BRAKE TECHNICIAN Unavailable Noemy Chicas RN Unavailable [phone] Steffany Damian Unavailable Unavailable Valorie Fernandez PALLIATIVE CARE PHYSICIAN.AUTOMOTIVE BRAKE TECHNICIAN Unavailable + Anna Rasmussen RN Unavailable Unavail able Active Problems ProblemNoted DateDiagnosed QswvLclqfstscnnlv39/02/2024Mixed hyperlipidemia 10/26/2023 Assessment & Plan (10/26/2023 2:40 PM EDT): Assessment: Controlled with statin. Monitored per PCP. Chronic pain /21/2024 Assessment & Plan (10/26/2023 2:56 PM EDT): Assessment: Managed with hydrocodone, takes 1-2 per day. Wldgqdiiovr19/21/2024 Assessment & Plan (10/26/2023 2:59 PM EDT): Assessment: On metformin History of kpsxebblqw73/21/2024 Assessment & Plan (10/26/2023 3:11 PM EDT): Assessment: CSF leak Malignant neoplasm of upper lobe of left lung10/23/2023 Cancer Staging: Clinical stage from 10/21/2023:Stage IIB(cT3, cN0, cM0) - Unsigned Chronic obstructive pulmonary levnzdw0910/20/2023 Assessment & Plan (10/26/2023 2:34 PM EDT): [...] Benign prostatic hyperplasia with lower urinary tract hemuvqwd05/11/2023 Overview (10/26/2023): Last Assessment & Plan: Occasional symptoms but tolerable and continue terazosin. Right internal carotid cunzmdjxo35/12/2022PAD (peripheral artery disease) 05/04/2021 Overview (10/26/2023): Last Assessment & Plan: Symptoms stable and follow up with vascular. Assessment & Plan (10/26/2023 2:54 PM EDT): Assessment: Known blockage - on baby ASA - following with vascular surgery Hypothyroidism, postradioiodine jrovqwr6004/29/2016 Overview (10/26/2023): Last Assessment & Plan: Medication adjusted and repeat labs next month. Assessment & Plan (10/26/2023 2:35 PM EDT): Assessment: Stable on Levothyroxine (Synthroid) Cigarette eljcrh9004/14/2016 Assessment & Plan (10/26/2023 2:35 PM EDT): Assessment: Recently quit - 4 weeks ago (09/2023) using nicotine patches Other affections of shoulder region, not elsewhere pbdrjuetmd54/08/2013 Pdmazlgpcyqf95/12/2012 Overview (02/16/2012): At knees Hx of fusion of cervical spine02/16/2012Essential zffdeuhdcxab67/19/2011 Overview (10/26/2023): Last Assessment & Plan: BP [...]
--- OUTSIDE RECORDS SUMMARY | 2025-01-07 08:57 | XMS_ITS | Encounter Summary ---
Author Organization [facility] Address [address] [place] [address] Care Team Providers Care Drivematic Machine Operator Name Role Phone Dick Boss MD Primary Care Provider [phone] Montse Duran RN Unavailable [phone] Nakia Aggarwal DO Unavailable [phone] Dick Boss MD Unavailable Encounter Details DateTypeDepartmentCare Team (Latest Contact Info)Ewzcqyypfvs54/20/2024Clinisync Result Encounter [facility] External Department Unsolicited Provider, Generic External Data Social History Tobacco UseTypesPacks/DayYears UsedDateSmoking Tobacco: Every DayCigarettes Smokeless Tobacco: Never Comments:Smokes 6-[address] waking up Alcohol UseStandard Drinks/WeekCommentsNot Currently0 (1 [...] relatives?Once a week04/19/2023How often do you attend latter day or congregation services?More than 4 times per year04/19/2023o you belong to any clubs or organizations such as latter day groups, unions, [employer] or athletic [employer] ups, or school groups?Patient dubdfdck45/13/2024How often do you attend meetings of the clubs or organizations you belong to?Patient rqjprhpi75/13/2024re you , , , , never , or living with a partner? Jbuflfg1504/19/2023UDIT-CAnswerDate RecordedQ1: How often do you have a [...] hard at all04/19/2023HQ-2AnswerDate RecordedPatient Health Questionnaire-2 Score0 04/18/2024[facility] - Occupational Stress QuestionnaireAnswerDate RecordedDo you feel stress - tense, restless, nervous, or anxious, or unable to sleep at night because yourmind is troubled all the time - these days?Patient jkpjvyiq21/13/2024Exercise Vital SignAnswerDate RecordedOn average, how many days [...] steady place to sleep or slept in [facility] (including now)?No 04/19/2023Sex and Gender InformationValueDate RecordedSex Assigned at BirthNot on fileLegal DlqLljc8205/19/2022 7:20 PM EDTGender IdentityNot on fileSexual OrientationNot on filedocumented as of this encounter Functional Status * Over the past 2 weeks, how often have you been bothered by any of the following problems?QuestionAnswerDate of AssessmentAuthorLittle interest or pleasure in doing thingsNot at all04/18/2024 10:00 AM Gina Osuna MA Feeling down, depressed, or hopelessNot at all04/18/2024 10:00 AM Gina Osuna MAPatient Health Questionnaire-2 Rgzpm258 10:00 AM Gina Osuna MA * QuestionAnswerDate of AssessmentAuthorTrouble falling or staying asleep, or sleeping too muchNearly every day04/18/2024 10:00 AM Gina Osuna MA Feeling tired or having little energyNearly every day04/18/2024 10:00 AM Gina Shepherd MAPoor appetite or overeatingNot at all04/18/2024 10:00 AM EST Melton, Gina, MAFeeling bad about yourself - or that you are a failure or have let yourself or your family downNot at all04/18/2024 10:00 AM Gina Osuna MATrouble concentrating on things, such as reading the newspaper or watching televisionNot at all04/18/2024 10:00 AM Gina Osuna, MAMoving or speaking so slowly that other people could have noticed? Or the opposite - being so fidgety or restless that you have been moving around a lot more than usual.Not at all04/18/2024 10:00 AM Gina Osuna MAThoughts that you would be better off or hurting yourself in some wayNot at all04/18/2024 10:00 AM Gina Osuna MAPatient Health Questionnaire-9 Rpwtp53304/18/2024 10:00 AM Gina Osuna MA documented as of this encounter Plan of Treatment DateTypeDepartmentCare Team (Latest Contact Info)Ivwoenpkrle40/21/2026 3:15 PM EDTOffice Visit [facility] [address] [place] [phone] Ada Claudio MD [address] [place] [address] documented as of this encounter Procedures Procedure NamePriorityDate/TimeAssociated DiagnosisCommentsCT CHEST W IV MIGYNMVD11/20/2024 10:16 AM EST documented in this encounter Results * CT chest w IV contrast (01/25/2024 10:16 AM EST)Anatomical RegionLaterality ModalityBody, ChestComputed TomographySpecimen (Source)Anatomical Location / LateralityCollection Method / VolumeCollection TimeReceived Time01/25/2024 10:16 AM EST Narrative 01/25/2024 10:49 AM EST * * *Final Report* * * DATE OF EXAM: Jan 25 2024 10:16AM ?? [facility] ?? 0539 ??- ??CT CHEST W IVCON ??/ PROCEDURE REASON: multiple diagnoses ? * * * * Physician Interpretation * * * * RESULT: EXAMINATION: ??CHEST CT WITH CONTRAST CLINICAL HISTORY: Malignant neoplasm of lung, unspecified laterality, unspecified part of lung (HCC) Malignant neoplasm of upper lobe of left lung (HCC) Technique: ??Spiral CT acquisition of the chest from the thoracic inlet to the upper abdomen following IV contrast. MQ: ??CTCWR_5 Contrast: ??100 mL Omnipaque [address] Dose-Length Product: ??1483 mGy*cm CT Dose Reduction Employed: Automated exposure control (AEC) Comparison: ??Outside hospital 09/28/2023 RESULT: Lines, tubes, and devices: ??None. Lung parenchyma and airways: Retained secretions in the central airways. Centrally cavitated left lower lobe mass has decreased in size now measuring 3.0 x 2.2 cm previously 5.3 x 4.3 cm. No new suspicious appearing pulmonary nodules. Pleural space: ??No pleural effusion or pneumothorax. Lower neck, lymph nodes, and mediastinum: ??No axillary, supraclavicular, mediastinal or hilar lymphadenopathy by CT size criteria. Heart, pericardium, and thoracic vessels: ??The heart is normal in size. ?? Trace pericardial fluid. The thoracic aorta and main pulmonary artery are normal in caliber. Atherosclerotic calcifications of the thoracic aorta and coronary arteries. Bones/Soft Tissues: No aggressive osseous lesions. Upper abdomen: ??Dedicated CT imaging of the abdomen and pelvis was performed concurrently and is dictated separately. Stock Parts Inspector (topogram) images: Unremarkable. IMPRESSION: Decreased size of the left lower lobe mass. No new suspicious appearing pulmonary nodules or thoracic lymphadenopathy. Transcribe Date/Time: Jan 25 2024 10:33A Dictated by: BASHIR SUH MD This examination was interpreted and the report reviewed and electronically signed by: BASHIR SUH MD on Jan 25 2024 10:47AM ??EST Thank you for allowing us to participate in the care of your patient. Should there be any questions regarding this interpretation, please call [phone]. If you are unable to reach us at the number above, please feel free to contact [facility] at [phone]. [id number]^[email or web address]^SI^ACN Procedure Note Radiology, Radiologist, - 01/25/2024 * * *Final Report* * * DATE OF EXAM: Jan 25 2024 10:16AM [facility] 0539 - CT CHEST W IVCON / [...] was performed concurrently and is dictated separately. Stock Parts Inspector (topogram) images: Unremarkable. IMPRESSION: Decreased size of the left lower lobe mass. No new suspicious appearing pulmonary nodules or thoraciclymphadenopathy. Transcribe Date/Time: Jan 25 2024 10:33A Dictated by: BASHIR SUH MD This examination was interpreted and the report reviewed and electronically signed by: BASHIR SUH MD on Jan 25 2024 10:47AM EST Thank you for allowing us to participate in the care of your patient. Should there be any questions regarding this interpretation, please call [phone]. If you are unable to reach us at the number above, please feel free to contact [facility] at [phone]. [id number]^AGFA_IDC^SI^ACN Authorizing ProviderResult TypeResult StatusGeneric External Data ProviderIMG CT PROCEDURESFinal Result documented in this encounter Visit Diagnoses Not on filedocumented in this encounter Additional Health Concerns AssessmentNoted TimeA fall risk assessment has been completed for the patient 08/11/2023 12:48 PM EDTdocumented as of this encounter Care Teams Team MemberRelationshipSpecialtyStart DateEnd Date Dick Boss MD PCP - GeneralFamily Medicine04/20/23 Nakia Aggarwal DO [address] [facility] [address] [place] [phone] PCP - Treasure CLARK/ Dick Boss MD [address] [place] [address] PCP - rTeasure CLARK/ Montse Duran, EWELINA [address] [place] [address] Registered NurseFamily Medicinedocumented as of this encounter
--- OUTSIDE RECORDS SUMMARY | 2025-01-07 08:57 | XMS_ITS | Clinical Summary ---
Author Organization [facility] Address [address], [address] [place] [address] Care Team Providers Care Printing Machinist Name Role Phone Mikhail Vega MD Primary Care Provider Unav ailable Social History Tobacco UseTypesPacks/DayYears UsedDateSmoking Tobacco: Never AssessedSex and Gender InformationValueDate RecordedSex Assigned at BirthNot on fileLegal Sex Male04/16/2012 11:30 AM ESTGender IdentityNot on fileSexual OrientationNot on file Plan of Treatment Not on file Care Teams Team MemberRelationshipSpecialtyStart DateEnd Date Mikhail Vega MD PCP - Ntixvpf65/26/12
--- OUTSIDE RECORDS SUMMARY | 2025-01-07 08:57 | XMS_ITS | Clinical Summary ---
Author Organization Address [address] [place] [id number] Care Team Providers Care Air Conditioning Specialist Name Role Phone Dick Boss MD Primary Care Provider Preston Lucio MD Unavailable Gerald Dumont MD Unavailable Kathy Ruiz MD Unavailable [phone] Preston Lucio MD Unavailable [phone] Michelle Galvez FLAKING ROLL OPERATOR.ASPHALT PATCHER Unavailable [phone] Noemy Chicas RN Unavailable [phone] Steffany Damian Unavailable Unavailable Valorie Fernandez FLAKING ROLL OPERATOR.ASPHALT PATCHER Unavailable + Anna Rasmussen RN Unavailable Unavail able Allergies Active AllergyReactionsCriticalityNoted DateCommentsGabapentinIntolerance 02/08/2024 Causes Altered mental Status Sulfa (Sulfonamide Antibiotics)UsjrfewUecm85/10/2012 Unkown, was a child Medications MedicationSigDispense QuantityRefillsLast [...] 12:40 PM EDTDiscontinued Active Problems ProblemNoted DateDiagnosed EftaWmqqgwvidyrwj64/02/2024Mixed hyperlipidemia 10/26/2023 Assessment & Plan (10/26/2023 2:40 PM EDT): Assessment: Controlled with statin. Monitored per PCP. Chronic pain azvtydrv08/21/2024 Assessment & Plan (10/26/2023 2:56 PM EDT): Assessment: Managed with hydrocodone, takes 1-2 per day. Oaakblpshym18/21/2024 Assessment & Plan (10/26/2023 2:59 PM EDT): Assessment: On metformin History of fxehhlnxby02/21/2024 Assessment & Plan (10/26/2023 3:11 PM EDT): Assessment: CSF leak Malignant neoplasm of upper lobe of left lung10/23/2023 Cancer Staging: Clinical stage from 10/21/2023:Stage IIB(cT3, cN0, cM0) - Unsigned Chronic obstructive pulmonary yfbtbro8610/20/2023 Assessment & Plan (10/26/2023 2:34 PM EDT): [...] tolerable and continue terazosin. Right internal carotid ueatniwpn01/12/2022AD (peripheral artery disease) 05/04/2021 Overview (10/26/2023): Last Assessment & Plan: Symptoms stable and follow up with vascular. Assessment & Plan (10/26/2023 2:54 PM EDT): Assessment: Known blockage - on baby ASA - following with vascular surgery Hypothyroidism, postradioiodine fgbrykr2204/29/2016 Overview (10/26/2023): Last Assessment & Plan: Medication adjusted and repeat labs next month. Assessment & Plan (10/26/2023 2:35 PM EDT): Assessment: Stable on Levothyroxine (Synthroid) Cigarette ipyepd8704/14/2016 Assessment & Plan (10/26/2023 2:35 PM EDT): Assessment: Recently quit - 4 weeks ago (09/2023) using nicotine patches Other affections of shoulder region, not elsewhere ckerkfunga40/08/2013 Dqjyrywutzmk56/12/2012 Overview (02/16/2012): At knees Hx of fusion of cervical spine02/16/2012Essential uqkovvelkneo00/19/2011 Overview (10/26/2023): Last Assessment & Plan: BP controlled and monitor PRN. Assessment & Plan (10/26/2023 2:40 PM EDT): Assessment: Stable and compliant with medications Followed by PCP Last 5 Encounter BP Readings: Date: BP: 10/26/2023 136/74 10/21/2023 136/72 02/16/2012 147/76 10/15/2011 144/80 Encounters DateTypeDepartmentCare XsvgKbdxfkispgb74/13/2025Telephone Hematology/Oncology [address] [place] [address] [place] [address] Noemy Chicas, RN Care Coordination (Lung Pain)12/07/2024 2:00 PM EDTVisit (SP) Office Hematology/Oncology [address] [place] [address] [place] [address] Elizabeth Givens APRN.ASPHALT PATCHER Malignant neoplasm of unspecified part of unspecified bronchus or lung (HCC) (Primary Dx); Radiation-induced pulmonary fibrosis (HCC); Radiation induced neuropathy (HCC); Malaise and fatigue; Malignant neoplasm of lower lobe, left bronchus or lung (HCC); termite control representative (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; Hyperglycemia; Oradxehpmmi99/26/2025 8:30 AM EDTOffice Visit Palliative Medicine [address] [place] [address] [place] [address] Valorie Fernandez, FLAKING ROLL OPERATOR.ASPHALT PATCHER Palliative care by specialist (Primary Dx); Radiation-induced pulmonary fibrosis (HCC); Malignant neoplasm of unspecified part of unspecified bronchus or lung (HCC); Neuralgia; Neuropathy due to chemotherapeutic drug (HCC); 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 condition; half-way (current) use of systemic adrwakwy70/26/6752Blodrq55/19/2025 1:30 PM EDTVisit (SP) Office Hematology/Oncology [address] [place] [address] [place] [address] Elizabeth Givens APRN.ASPHALT PATCHER Radiation-induced pulmonary fibrosis (HCC) (Primary Dx); Malignant neoplasm of unspecified part of unspecified bronchus or lung (HCC); Pleural effusion, not elsewhere classified; Shortness of breath; Malaise and fatigue; Radiation induced neuropathy (HCC); termite control representative (current) use of systemic qkhgbjog32/19/4099Efnnyg24/12/2025 11:00 AM EDTOffice Visit Radiation Oncology [address] [place] [address] [place] [address] Jack Kc MD Malignant neoplasm of upper lobe of left lung (HCC) (Primary Dx)11/09/2024 11:45 AM EDTVisit (SP) Office Hematology/Oncology [address] [place] [address] [place] [address] Preston Lucio MD Radiation-induced pulmonary fibrosis (HCC) (Primary Dx); Malignant neoplasm of unspecified part of unspecified bronchus or lung (HCC); Neuralgia; Pleural effusion, not elsewhere classified; Herpes zoster without complications; Encounter for follow-up examination after completed treatment for malignant neoplasm; half-way (current) use of systemic rmscunpq55/05/2025 9:55 AM EDT - 11/09/2024 11:59 PM EDTHospital Encounter Radiology Pet CT [address] [place] [address] Malignant neoplasm of unspecified part of unspecified bronchus or lung (HCC) [C34.90] Discharge Disposition: Home11/09/2024Telephone Cancer Appts [address] [place] [address] Preston Lucio MD Araooop1611/09/20249593Zblbja81/02/2025Telephone Hematology/Oncology [address] [place] [address] [place] [address] Noemy Chicas, RN Care Coordination (Lung Pain)10/30/2024Telephone Hematology/Oncology [address] [place] [address] [place] [address] Noemy Chicas, RN Care Coordination (Discharge Follow Up Call )10/29/2024H&P External-NonCCF Provider, External, PAEdwardC 10/29/2024Telephone Hematology/Oncology [address] [place] [address] [place] [address] Noemy Chicas, RN Care Coordination (Hospital Admission)10/26/2024 8:00 AM EDT - 10/26/2024 11:59 PM EDTHospital Encounter Radiology [address] [place] [place] [address] Radiation-induced pulmonary fibrosis (HCC) [J70.1] Discharge Disposition: Home10/25/2024Telephone Hematology/Oncology [address] [place] [place] [address] Noemy Chicas, RN Care Coordination (Lung Pain)from [...] drink = 0.6 oz pure alcohol)PHQ-2AnswerDate RecordedPHQ-2 bwhgd4575Area Deprivation Index AnswerDate RecordedNational Score (1-100), lower number is lower risk75 10/21/2023State Score (1-10), lower number is lower qjls4314Data from: https://www.neighborhoodatlas.medicine.[facility].edu/. Last address used for [address] [place] [address]01110/21/2023Sex and Gender InformationValueDate RecordedSex Assigned at BirthNot on fileLegal VnjKzgr79/02/2012 10:16 AM EST Gender IdentityNot on fileSexual OrientationNot on file Last Filed Vital Signs Vital SignReadingTime TakenCommentsBlood Btilyute742/7410 2:07 PM EDT Dyoup6560 2:07 PM CVCPgjhfokzcnu92.5 ??C (97.7 ??F)12/07/2024 2:07 PM EDTRespiratory Cond7658 2:07 PM EDTOxygen Cssnhtduhs76%12/07/2024 2:07 PM EDTInhaled Oxygen Concentration--Utqxct53 kg (191 lb 12.8 oz)12/07/2024 2:07 PM LQPMcixzg324.5 cm (5' 5.55 )12/07/2024 2:07 PM EDTBody Mass Index31.38 12/07/2024 2:07 PM EDT Plan of Treatment DateTypeDepartmentCare Team (Latest Contact Info)Tzjtvcnrbmh77/29/2025 8:00 AM ESTAppointment Radiology Pet CT [address] [place] [address] PET03/11/2025 2:00 PM ESTVisit (SP) Office Hematology/Oncology [address] [place] [place] [address] Preston Lucio MD [address] [place] [address] [place] [address] FOLLOW UP AFTER PET SCANHealth MaintenanceDue DateLast DoneCommentsAnnual PCP Team Chronic Disease Visit12/03/1973Depression Ywjkgcdxq43/29/1974Hepatitis C Bzxrrptiw33/29/1974DTaP,Tdap,Td Vaccine (1 - Tdap)12/03/1974CT Colonography 12/03/2000Cologuard (FIT-DNA)12/03/2000Fecal Occult Blood12/03/2000Sigmoidoscopy 12/03/2000RSV Vaccine (1 - Risk 60-74 years 1-dose series)2015Colonoscopy Colorectal Cancer Qopaifitu51/29/2017Advance Directive Vpcrvvqelu24/01/2025Medicare Advantage Annual Wellness Visit03/07/2024ovid-19 Vaccine ( season), 06/02/2020, 05/02/2020 Influenza Vaccine (#1)2024Diabetes Pcylymcsi07, 11/23/2024, 11/09/2024, Additional history existsLipid Cwwkmfedy84/24/2029 09/28/2023Shingrix JqjxpnrQpqaajvmv16/16/2019, 07/02/2018Pneumococcal Vaccine: 50+Pjvzmzohx35/11/2023, 08/04/2016, 12/16/2014bdominal Aortic Aneurysm ItzdmkrmtYrgjvrbwc46/23/2024 Procedures Procedure NamePriorityDate/TimeAssociated DiagnosisCommentsTSH BLDRoutine 12/07/2024 1:40 PM EDT Malignant neoplasm of upper lobe of left lung (HCC) Abnormal blood chemistry Malaise and fatigue CORTISOL FEKCxohspl55/03/2025 1:40 PM EDT Malignant neoplasm of upper lobe of left lung (HCC) Abnormal blood chemistry Malaise and fatigue CBC + NCXWOdvoiia48/03/2025 1:40 PM EDT Malignant neoplasm of upper lobe of left lung (HCC) Abnormal blood chemistry Malaise and fatigue COMPREHENSIVE METABOLIC BZHEMCcomvoh33/03/2025 1:40 PM EDT Malignant neoplasm of upper lobe of left lung (HCC) Abnormal blood chemistry Malaise and fatigue CBC + FYEVNyaiuxl09/19/2025 3:29 PM EDT Radiation-induced pulmonary fibrosis (HCC) COMPREHENSIVE METABOLIC UMFIYTjkfrxf44/19/2025 3:10 PM EDT Malignant neoplasm of upper lobe of left lung (HCC) Abnormal blood chemistry Malaise and fatigue TSH UZERwttqoh34/19/2025 3:03 PM EDT Malignant neoplasm of upper lobe of left lung (HCC) Abnormal blood chemistry Malaise and fatigue CORTISOL QQVFgrqcas46/19/2025 3:03 PM EDT Malignant neoplasm of upper lobe of left lung (HCC) Abnormal blood chemistry Malaise and fatigue CBC + UEPWFpuejbk86/19/2025 2:33 PM EDT Malignant neoplasm of upper lobe of left lung (HCC) Abnormal blood chemistry Malaise and fatigue NM PET/CT SKULL-THIGH WAMUGKKRYHPoynorq21/05/2025 12:10 PM EDT Malignant neoplasm of unspecified part of unspecified bronchus or lung (HCC) GLUCOSE, BLOOD (POC)Rryvyqa4611/09/2024 10:03 AM EDT COMPREHENSIVE METABOLIC HQSRDZbmmjya89/05/2025 9:56 AM EDT Malignant neoplasm of unspecified part of unspecified bronchus or lung (HCC) CBC + VXVEGxldnzf87/05/2025 9:56 AM EDT Malignant neoplasm of unspecified part of unspecified bronchus or lung (HCC) HEMOGLOBIN P1YEiwswqa16/05/2025 9:56 AM EDT Malignant neoplasm of unspecified part of unspecified bronchus or lung (HCC) Immunotherapy Abnormal blood chemistry CORTISOL ZUWCckrnmy82/05/2025 9:56 AM EDT Malignant neoplasm of unspecified part of unspecified bronchus or lung (HCC) Immunotherapy Malaise and fatigue Abnormal blood chemistry TSH UGWDzdyrfy92/05/2025 9:56 AM EDT Malignant neoplasm of unspecified part of unspecified bronchus or lung (HCC) Immunotherapy Malaise and fatigue EXTERNAL BDOIMAQKVS81/26/2025 9:22 AM EDT EXTERNAL LAB10/29/2024 9:01 AM EDT EXTERNAL NCOHNEN3810/29/2024 9:01 AM EDT EXTERNAL LAB10/29/2024 9:01 AM EDT EXTERNAL LAB10/29/2024 9:01 AM EDT EXTERNAL HDZZJCCTFS68/25/2025 9:[address] OUTSIDE CD DICOM UMAPLJ0310/27/2024 XR CHEST 2V FRONTAL/AEEWkpggot94/22/2025 8:52 AM EDT Radiation-induced pulmonary fibrosis (HCC) Shortness of breath from Last 3 Months Results * THYROID STIMULATING HORMONE (12/07/2024 1:40 PM EDT) Only the most recent of3 resultswithin the time period is included. ComponentValueRef RangeTest MethodAnalysis TimePerformed AtPathologist Signature TSH0.8210.270 - 4.200 mIU/L1 6:21 AM [facility] LABSpecimen (Source)Anatomical Location / LateralityCollection Method / Volume Collection TimeReceived TimeBloodBLOOD SPECIMEN / UnknownVenipuncture / Unknown 12/07/2024 1:40 PM EDT1 1:41 PM EDT Narrative Authorizing ProviderResult TypeResult StatusPreston Lucio MDLABORATORYFinal ResultPerforming OrganizationAddressCity/State/ZIP CodePhone Number [facility] [address] [facility] [address] * (ABNORMAL) CORTISOL, SERUM (12/07/2024 1:40 PM EDT) Only the most recent of3 resultswithin the time period is included. ComponentValueRef RangeTest MethodAnalysis TimePerformed AtPathologist Signature Cortisol1.4(L)4.8 - 19.5 ug/dL12/08/2024 6:21 AM [facility] LABComment: Provided reference range is from 6-10 AM sample collection time. Cortisol Reference Range: 6-10 AM = 4.8-19.5 ug/dL, 4-8 PM = 2.5-11.9 ug/dL Specimen (Source)Anatomical Location / LateralityCollection Method / Volume Collection TimeReceived TimeBloodBLOOD SPECIMEN / UnknownVenipuncture / Unknown 12/07/2024 1:40 PM EDT1 1:41 PM EDT Narrative Authorizing ProviderResult TypeResult StatusPreston Lucio MDLABORATORYFinal ResultPerforming OrganizationAddressCity/State/ZIP CodePhone Number [facility] [address] [facility] [address] [place] [address], [place] * (ABNORMAL) COMPREHENSIVE METABOLIC PANEL (12/07/2024 1:40 PM EDT) Only the most recent of3 resultswithin the time period is included. ComponentValueRef RangeTest MethodAnalysis TimePerformed AtPathologist Signature Protein, Total7.06.3 - 8.0 g/dL12/07/2024 2:28 PM EDTNORTSCHEURER [facility]OSPITAL LABAlbumin4.73.9 - 4.9 g/dL12/07/2024 2:28 PM EDTWILLIAM[facility] LABCalcium, Total9.88.5 - 10.2 mg/dL12/07/2024 2:28 PM EDT [facility] LABBilirubin, Total0.40.2 - 1.3 mg/dL 12/07/2024 2:28 PM EDTWILLIAMSON [facility] LABAlkaline Phosphatase 6638 - 113 U/L1 2:28 PM EDTNORTSC[facility]URER [facility] JWOESG6318 - 40 U/L1 2:28 PM EDTNORTSC[facility]URER [facility]OS[facility] JASSZZ9379 - 54 U/L1 2:28 PM EDTNORTSCHEURER [facility]OSP[facility] QBBBhhvand061(H)74 - 99 mg/dL12/07/2024 2:28 PM EDTRTSCHEURER HOSPITAL LABComment: The [place] Diabetes Association (ADA) provides guidance for cutoff [...] Standards of Medical Care in Diabetes 2016, [place] Diabetes Association. Diabetes Care. 2016.39(Suppl 1). FWQ114 - 24 mg/dL12/07/2024 2:28 PM EDTWILLIAMSON [facility] LAB Creatinine0.760.73 - 1.22 mg/dL12/07/2024 2:28 PM EDTNORTSCHEURER [facility]OSPITAL MMYZzjyzx867531 - 144 mmol/L1 2:28 PM ED[facility] LABPotassium4.13.7 - 5.1 mmol/L1 2:28 PM ED[facility] PGXMvkcnjyh21(L)98 - 107 mmol/L1 2:28 PM EDT [facility] TAQFV56478 - 30 mmol/L1 2:28 PM EDT [facility] LABAnion Uym233 - 15 mmol/L1 2:28 PM [facility] LABEstimated Glomerular Filtration Rate97 >=60 mL/min/1.73m 12/07/2024 2:28 PM [facility] LABComment:Estimated Glomerular Filtration Rate (eGFR) is calculated [...] VolumeCollection TimeReceived TimeBloodBLOOD SPECIMEN / UnknownVenipuncture / Wopupvo0912/07/2024 1:40 PM EDT1 1:41 PM EDT Narrative Authorizing ProviderResult TypeResult StatusViveteagan Lucio MDLABORATORYFinal ResultPerforming OrganizationAddressCity/State/ZIP CodePhone Number [facility] [address] [place] [address] * (ABNORMAL) COMPLETE BLOOD COUNT AND DIFFERENTIAL (12/07/2024 1:40 PM EDT) Only the most recent of4 resultswithin the time period is included. ComponentValueRef RangeTest MethodAnalysis TimePerformed AtPathologist Signature WBC8.213.70 - 11.00 k/uL12/07/2024 1:54 PM EDTNORTHCOAST [facility] LABRBC4.214.20 - 6.00 m/uL12/07/2024 1:54 PM EDTNORTSCHEURER [facility]OS[facility] VMCBxomzhbkna59.6(L)13.0 - 17.0 g/dL12/07/2024 1:54 PM EDTNOWYOM[facility] FBBNwgqtjfebg14.6(L)39.0 - 51.0 %12/07/2024 1:54 PM EDT [facility] XYWZRZ05.380.0 - 100.0 fL12/07/2024 1:54 PM EDTNORTSC[facility]URER [facility] PDEDUG31.926.0 - 34.0 pg12/07/2024 1:54 PM EDTNORTSC[facility]ER [facility] WAYWHSC14.530.5 - 36.0 g/dL12/07/2024 1:54 PM EDTNORTSC[facility]URER [facility] LABRDW-CV16.4(H)11.5 - 15.0 %12/07/2024 1:54 PM EDTNORTOAST [facility] LABPlatelet Kkgvg052893 - 400 k/uL 12/07/2024 1:54 PM EDTNORTSC[facility]ER [facility] LABMPV9.49.0 - 12.7 fL 12/07/2024 1:54 PM EDTNORTSC[facility]ER [facility] LABNeutrophils %83.0% 12/07/2024 1:54 PM EDTNORTSCHEURER [facility]OS[facility] LABAbs Neut6.811.45 - 7.50 k/uL12/07/2024 1:54 PM EDTNOWY[facility] LABLymphocytes %10.2%12/07/2024 1:54 PM EDTWILLIAMSON [facility] LABAbs Lymph0.84 (L)1.00 - 4.00 k/uL12/07/2024 1:54 PM EDTNOWY[facility] LAB Monocytes %3.8%12/07/2024 1:54 PM EDTNORTSCHEURER [facility]OSP[facility] LABAbs Mono0.31<0.87 k/uL12/07/2024 1:54 PM EDTNOWY[facility] LAB Eosinophils %0.6%12/07/2024 1:54 PM EDTNOWYOMING [facility] LABAbs Eosin0.05<0.46 k/uL12/07/2024 1:54 PM EDTWILLIAM[facility] LAB Basophils %0.5%12/07/2024 1:54 PM EDTNOWYOMING [facility] LABAbs Baso0.04<0.11 k/uL12/07/2024 1:54 PM EDTWILLIAMSON [facility] LAB Immature Granulocytes %1.9%12/07/2024 1:54 PM EDGRE[facility] LABAbs Immature Gran0.16(H)<0.10 k/uL12/07/2024 1:54 PM EDTWILLIAMSON [facility] LABNRBC0.0/100 WBC12/07/2024 1:54 PM EDGRE[facility] LABAbsolute nRBC<0.01<0.01 k/uL12/07/2024 1:54 PM EDT [facility] LABDiff XcmfTcqd78/03/2025 1:54 PM EDT [facility] LABSpecimen (Source)Anatomical Location / LateralityCollection Method / VolumeCollection TimeReceived TimeBloodBLOOD SPECIMEN / UnknownVenipuncture / Jmdqnng9512/07/2024 1:40 PM EDT1 1:41 PM EDT Narrative Authorizing ProviderResult TypeResult StatusPreston Lucio MDLABORATORYFinal ResultPerforming OrganizationAddressCity/State/ZIP CodePhone Number [facility] [address] [place] [address] * NM PET/CT SKULL-THIGH SUBSEQUENT (11/09/2024 12:10 [...] * ??Uptake Time: 61 minutes * ??Radiopharmaceutical: K57-Tfegbladrvtpiihvgb (FDG) COMPARISON: 08/03/2024 CORRELATION: 07/29/2024 OS neck [...] any questions regarding this interpretation, please call [phone]. If you are unable to reach us at the number above, please feel free to contact [facility] at [phone]. Procedure Note Provider, [facility] [place] - 11/09/2024 * * *Final Report* * [...] * Uptake Time: 61 minutes * Radiopharmaceutical: H84-Pcpedhxzptqnqtblqi (FDG) COMPARISON: 08/03/2024 CORRELATION: 07/29/2024 [facility] neck CTA report RESULT: REFERENCES: FDG uptake [...] any questions regarding this interpretation, please call [phone]. If you are unable to reach us at the number above, please feel free to contact [facility] at [phone]. Authorizing ProviderResult TypeResult StatusViveteagan Lucio MDNM-PAMAFinal Result * (ABNORMAL) GLUCOSE, BLOOD (POC) (11/09/2024 10:03 AM EDT)ComponentValueRef RangeTest MethodAnalysis TimePerformed AtPathologist SignatureGlucose, Point of Cjsd770(A)74 - 99 mg/dLSMarshfield Medical CenterComment: Location:[facility], [address] [place] [address] [place]anna LindsayAl[place], [place], [address] The Accu-Chek Inform II glucose meter has [...] ProviderPOC TESTINGFinal Result Performing OrganizationAddressCity/State/ZIP CodePhone Number [facility] POINT OF CARE [facility] [address] [place], [place] * (ABNORMAL) HEMOGLOBIN A1C (11/09/2024 9:56 AM EDT)ComponentValueRef RangeTest MethodAnalysis TimePerformed AtPathologist SignatureHemoglobin A1C5.9(H)4.3 - 5.6 %11/09/2024 6:43 PM EDTCSELECT MEDICAL [facility] LABComment:[place] Diabetes Association guidelines indicate that patients with HgbA1c in the range 5.7-6.4% are at increased risk for development of diabetes, and intervention by lifestyle modification may be beneficial. HgbA1c greater or equal to 6.5% is considered diagnostic of diabetes.Estimated Average Glucose 123mg/dL11/09/2024 6:43 PM EDTCSELECT MEDICAL [facility] LABComment:eAG: (Estimated average glucose) is a calculated value from HgbA1c and is strategic partnership representative of the average blood glucose level in the last 2-3 month period.Specimen (Source)Anatomical Location / LateralityCollection Method / VolumeCollection TimeReceived TimeBloodBLOOD SPECIMEN / UnknownVenipuncture / Xracnhq5811/09/2024 9:56 AM EDT11/09/2024 10:08 AM EDT Narrative Authorizing ProviderResult TypeResult StatusVivek Khadijah MDLABORATORYFinal ResultPerforming OrganizationAddressCity/State/ZIP CodePhone Number [facility] [address] [facility] [address] * EXTERNAL CARDIOLOGY (10/30/2024 9:22 AM [...] AM EDT Images were obtained outside of [facility] Procedure Note Provider, [facility] [place] - 10/30/2024 Images were obtained outside of [facility] Authorizing ProviderResult TypeResult StatusCcf ProviderRADIOLOGYFinal Result * [...] any questions regarding this interpretation, please call [phone]. If you are unable to reach us at the number above, please feel free to contact [facility] at [phone]. Narrative 10/26/2024 11:24 AM EDT * * [...] spine. Procedure Note Provider, [facility] [place] - 10/26/2024 * * *Final Report* * [...] any questions regarding this interpretation, please call [phone]. If you are unable to reach us at the number above, please feel free to contact [facility] at [phone]. Authorizing ProviderResult TypeResult StatusHolly Lenny LEE.CNPRAD-PAMAFinal Result from Last 3 Months Insurance * Guarantor: Nate Pena TypeRelation to PatientDate of BirthPhone Billing AddressPersonal/MfpvadRnle43/29/1956 [facility] [place] [address] Advance Directives TypeDate RecordedPatient RepresentativeExplanationAdvance Directive(s)11/16/2023 3:40 PMAdvance Directives- Health Carer Power of Car Parker and Living Will Care Teams Team MemberRelationshipSpecialtyStart DateEnd Date Dick Boss MD [address] [place] [address] PCP - GeneralFamily Medicine10/21/23 Preston Lucio MD [address] [place] [address] Hematology/Oncology11/04/23 Gerald Dumont MD [address] [facility] [place] [address] Hematology/Oncology11/04/23 Kathy Ruiz MD [address] [facility] [place] [address] 11/04/23 Preston Lucio MD [address] [place] [address] [place] [address] PhysicianHematology/Oncology11/14/23 Michelle Galvez, FLAKING ROLL OPERATOR.ASPHALT PATCHER [address] [place] [address] [place] [address] Nurse PractitionerHematology/Oncology11/14/23 Noemy Chicas, EWELINA [address] [place] [address] [place] [address] Specialty Care CoordinatorHematology/Oncology11/14/23 Steffany Damian LSW Social Worker11/16/23 Valorie Fernandez, FLAKING ROLL OPERATOR.ASPHALT PATCHER [address] [place] [address] [place] [address] Hospice & Palliative Zudqtxfp73/22/24 Anna Rasmussen RN Specialty Care CoordinatorHospice & Palliative Yjueamqe10/22/24
--- OUTSIDE RECORDS SUMMARY | 2025-01-07 08:57 | XMS_ITS | Encounter Summary ---
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 Name Role Phone Dick Boss MD Primary Care Provider [phone] Montse Duran RN Unavailable Nakia Aggarwal DO Unavailable [phone] Dick Boss MD Unavailable Encounter Details DateTypeDepartmentCare Team (Latest Contact Info)Ddyggdkyjse43/27/2024Clinisync Result Encounter [facility] Unsolicited Provider, [...] relatives?Once a week04/19/2023How often do you attend hindu or christian services?More than 4 times per year04/19/2023o you belong to any clubs or organizations such as hindu groups, unions, Pay[employer]ies or athletic Yoke ups, or school groups?Patient gntlwdoa96/13/2024How often do you attend meetings of the clubs or organizations you belong to?Patient wztlyfoj18/13/2024re you , , , , never , or living with a partner? Wavylvz6704/19/2023UDIT-CAnswerDate RecordedQ1: How often do you have a [...] hard at all04/19/2023HQ-2AnswerDate RecordedPatient Health Questionnaire-2 Score0 04/18/2024[facility] - Occupational Stress QuestionnaireAnswerDate RecordedDo you feel stress - tense, restless, nervous, or anxious, or unable to sleep at night because yourmind is troubled all the time - these days?Patient xlpvlbyg09/13/2024Exercise Vital SignAnswerDate RecordedOn average, how many days [...] steady place to sleep or slept in [facility] (including now)?No 04/19/2023Sex and Gender InformationValueDate RecordedSex Assigned at BirthNot on fileLegal PhfDzha3005/19/2022 7:20 PM EDTGender IdentityNot on fileSexual OrientationNot on filedocumented as of this encounter Functional Status * Over the past 2 weeks, how often have you been bothered by any of the following problems?QuestionAnswerDate of AssessmentAuthorLittle interest or pleasure in doing thingsNot at all04/18/2024 10:00 AM Gina Osuna MA Feeling down, depressed, or hopelessNot at all04/18/2024 10:00 AM Gina Osuna MAPatient Health Questionnaire-2 Rucvj791 10:00 AM Gina Osuna MA * QuestionAnswerDate [...] 10:00 AM Gina Osuna MAPatient Health Questionnaire-9 Sdlbu67404/18/2024 10:00 AM Gina Osuna MA documented as of this encounter Plan of Treatment DateTypeDepartmentCare Team (Latest Contact Info)Fhimwcrbljz68/21/2026 3:15 PM EDTOffice Visit [facility] [address] [place] [phone] Ada Claudio MD [address] [place] [address] documented as of this encounter Procedures Procedure NamePriorityDate/TimeAssociated DiagnosisCommentsCCF CYTOLOGY NON-MECHANICS HANDYMAN Gjrrrkr1811/01/2023 12:29 PM EDT JEYZVZMRAFXO85/27/2024 11:19 AM EDT documented in this encounter Results * [facility] CYTOLOGY NON-MECHANICS HANDYMAN (11/01/2023 12:29 PM EDT)ComponentValueRef RangeTest MethodAnalysis TimePerformed AtPathologist SignatureCCF CASE REPORTCCFComment: Medical Cytology Report ? Case: [id number] ? Authorizing Provider: ??Uzma, Hugh Houser, MD ?Collected: ? 11/01/2023 12:29 PM? Ordering Location: ? [facility] ?Received: ?11/01/2023 01:13 PM ? Endoscopy - ENDO ? Pathologist: ? Daily Akers, ? Specimens: ?? A) - Lymph Node, Transbronchial, 4R ? B) - Lymph Node, Transbronchial, Station 7 ? C) - Lymph Node, Transbronchial, 4L ? D) - Lymph Node, Transbronchial, 10L ? E) - Lymph Node, Transbronchial, 11L ? [facility] FINAL DIAGNOSISCCFComment: A - Lymph Node, Transbronchial, Aspirate/Fine Needle Aspirate ??- 4R ?Negative for malignant cells. ?Benign lymphoid sample. ? B - Lymph Node, Transbronchial, Aspirate/Fine Needle Aspirate ??- Station 7 ?Negative for malignant cells. ?Benign lymphoid sample. ? C - Lymph Node, Transbronchial, Aspirate/Fine Needle Aspirate ??- 4L ?Negative for malignant cells. ?Benign lymphoid sample. ? D - Lymph Node, Transbronchial, Aspirate/Fine Needle Aspirate ??- 10L ?Negative for malignant cells. ?Benign lymphoid sample. ? E - Lymph Node, Transbronchial, Aspirate/Fine Needle Aspirate ??- 11L ?Negative for malignant cells. ?Benign lymphoid sample. ? The following cell blocks were associated with this case: A1 Cell Block, Alcohol Fixed B1 Cell Block, Alcohol Fixed C1 Cell Block, Alcohol Fixed D1 Cell Block, Alcohol Fixed E1 Cell Block, Alcohol Fixed at ??3:25 PM [facility] GROSS DESCRIPTIONCCFComment: A. Lymph Node, Transbronchial 30 cc clear pink CytoLyt with material. ??ThinPrep and Cell Block prepared and 4 smears (2 air dried and 2 fixed). B. Lymph Node, Transbronchial 30 cc clear pink CytoLyt with material. ??ThinPrep and Cell Block prepared and 4 smears (2 air dried and 2 fixed). C. Lymph Node, Transbronchial 30 cc clear light pink CytoLyt with particles. ??ThinPrep and Cell Block prepared and 6 smears (3 air dried and 3 fixed). D. Lymph Node, Transbronchial 30 cc clear pink CytoLyt with material. ??ThinPrep and Cell Block prepared and 6 smears (3 air dried and 3 fixed). E. Lymph Node, Transbronchial 30 cc clear pink CytoLyt with material. ??ThinPrep and Cell Block prepared and 4 smears (2 air dried and 2 fixed). [facility] CLINICAL HISTORYCCFComment: Pre-op diagnosis: Lung nodule [R91.1] Lung cancer [facility] ADEQUACY INTERPRETATIONCCFComment: A: #1 Limited lymphoid sample ? #2 Lymphoid sample B: #1 Lymphoid sample ? #2 Non-diagnostic C: #1-3 Lymphoid sample ?? D: #1-3 Lymphoid sample E: #1 Lymphoid sample ? #2 Non-diagnostic Dr. Akers / Annabella Gastelum Each letter in the above intra-procedural assessment refers to a unique site. The specific site is indicated in the final diagnosis portion of the report. Each number in this assessment references a discrete evaluation episode. Intra-procedural assessment performed at [facility], [address] [place] [address] C[facility] ORDER COMMENTCCFComment: Pre-op diagnosis: Lung nodule [R91.1] [facility] FINAL PERFORMING LABCCFComment: Technical component, syrup filterer screening performed at [facility], [address] [id number] ?CLIA# [id number] Diagnostic interpretation performed at [facility], [address] [place] [address] ?CLIA# [id number] Supervisor Cleaning And Annealing: Mihai Vora M.D. Specimen (Source)Anatomical Location / LateralityCollection Method / Volume Collection TimeReceived Time11/01/2023 12:29 PM EDT11/01/2023 1:15 PM EDT Narrative CLINISYNC - 11/02/2023 3:25 PM EDT Specimen Type: SPECIMEN OBTAINED BY ASPIRATION Ordering Facility: [facility] ?Address: [facility] [place] [address] Original Ordering Provider: HUGH CRAIG Authorizing ProviderResult TypeResult StatusGeneric External Data Provider CLINISYNCFinal ResultPerforming OrganizationAddressCity/State/[facility] CodePhone Number CLINISYARELY [facility] [address] [place] [address] * BRONCHOSCOPY (11/01/2023 11:19 AM EDT)Anatomical RegionLateralityModalityOther Specimen (Source)Anatomical Location / LateralityCollection Method / Volume Collection TimeReceived Time11/01/2023 11:19 AM EDT Narrative 11/01/2023 1:34 PM EDT [facility] Patient Name: Nate Calvert Procedure Date: 11/01/2023 11:19 AM Date of : 1955 Admit Type: Outpatient Age: 67 Room: [facility] 2 Gender: Male Attending MD: Hugh Craig MD, [id number] Procedure: ? Bronchoscopy Indications: ? Mediastinal staging of confirmed lung cancer., ? Known lung cancer of the left lower lobe Providers: ? Hugh Craig MD (Doctor), Clifton Seymour RN ? (Assisting Nurse), Josefina Sharma RN , Nena ? EWELINA Huang (Assisting Nurse) Referring MD: ? Requesting Physician: ??Preston Lucio Patient Profile: ? Refer to note in patient chart for documentation of history and ? physical. Imaging Source: CT of chest. Clinical Radiographic Stage: ? T3, N1, M0. Medicines: ? General Anesthesia, See the Anesthesia note for ? documentation of the administered medications Complications: ? No immediate complications Procedure: ? Pre-Anesthesia Assessment: ? - A History and Physical has been performed. ? Patient meds and allergies have been reviewed. The ? risks and benefits of the procedure and the ? sedation options and risks were discussed with the ? patient. All questions were answered and informed ? consent was obtained. Patient identification and ? proposed procedure were verified prior to the ? procedure by the physician, the nurse, the ? anesthesiologist and the casing tier in the ? procedure room. Mental Status Examination: normal. ? Respiratory Examination: clear to auscultation. CV ? Examination: regular rate and rhythm. ASA Grade ? Assessment: III - A patient with severe systemic ? disease. After reviewing the risks and benefits, ? the patient was deemed in satisfactory condition to ? undergo the procedure. The anesthesia plan was to ? use general anesthesia. Immediately prior to ? administration of medications, the patient was ? re-assessed for adequacy to receive sedatives. The ? heart rate, respiratory rate, oxygen saturations, ? blood pressure, adequacy of pulmonary ventilation, ? and response to care were monitored throughout the ? procedure. The physical status of the patient was ? re-assessed after the procedure. ? After obtaining informed consent, the Bronchoscope ? was introduced through the mouth, via laryngeal ? mask airway and advanced to the tracheobronchial ? tree. the Bronchoscope was introduced through the ? mouth, via laryngeal mask airway and advanced to ? the tracheobronchial tree. The procedure was ? accomplished without difficulty. The patient ? tolerated the procedure well. Findings: ? The laryngeal mask airway is in good position. The vocal cords appear ? normal. The subglottic space is normal. The trachea is of normal ? caliber. The keyon is sharp. The tracheobronchial tree was examined ? to at least the first subsegmental level. Bronchial mucosa and ? anatomy are normal; there are no endobronchial lesions, and no ? secretions. ? Once the airway inspection was completed, the standard bronchoscope ? was withdrawn and the convex probe endobronchial ultrasound (EBUS) ? bronchoscope was inserted through the same route. A systematic ? staging of the hilum and mediastinum was performed. ? Lymph Nodes: The following lymph nodes were evaluated and/or sampled. ? Lymph node sizing was performed via endobronchial ultrasound for ? known non-small cell lung cancer. Sampling by transbronchial needle ? aspiration was also performed using an Olymp[employer] General Cyber[employer]Shot 22 gauge ? needle and sent for routine cytology. ? - The 11Rs (superior interlobar) node was 4 mm by EBUS, [address] ? and PET scan was not done. Sampling was not done due to size criteria ? (less than 5 mm). ? - The 4R (lower paratracheal) node was 5 mm by EBUS, [address] and ? PET scan was not done. Three samples with the needle were obtained. ? - The 2R (upper paratracheal) node was 3 mm by EBUS, [address] and ? PET scan was not done. Sampling was not done due to size criteria ? (less than 5 mm). ? - The 7 (subcarinal) node was 10 mm by EBUS, [address] and PET scan ? was not done. Three samples with the needle were obtained. ? - The 2L (upper paratracheal) node was not visualized by EBUS, not ? visualized by CT and PET scan was not done. Sampling was not done due ? to size criteria (less than 5 mm). ? - The 4L (lower paratracheal) node was 5 mm by EBUS, [address] and ? PET scan was not done. Four samples with the needle were obtained. ? - The 10L (hilar) node was 9 mm by EBUS, [address] and PET scan was ? not done. Four samples with the needle were obtained. ? - The 11L (interlobar) node was 10 mm by EBUS and [address] Four ? samples with the needle were obtained. ? Lymph Nodes: Rapid On-Site Evaluation (KRISTOPHER): Preliminary cytology ? was suggestive of benign-appearing lymphoid tissue (final results are ? pending) in the right lower paratracheal region (level 4R), left ? lower paratracheal region (level 4L), subcarinal mediastinum (level ? 7), left hilar region (level 10L) and left interlobar region (level ? 11L). Impression: ?- Known lung cancer of the left lower lobe ? - Lymph node sizing and sampling was performed. ? - Rapid On-Site Evaluation (KRISTOPHER): Preliminary ? cytology was suggestive suggestive of ? benign-appearing lymphoid tissue in node level 4R, ? node level 4L, node level 7, node level 10L and ? node level 11L (final results are pending). Recommendation: ?- Await test results. Attending Participation: ? I personally performed the entire procedure. Dr. Hugh Craig MD 11/01/2023 1:34:50 PM This report has been signed electronically by Hugh Craig MD Number of Addenda: 0 Note Initiated On: 11/01/2023 11:19 AM Procedure Start: 12:22:23 PM Procedure End: 12:58:25 PM Procedure Note Radiology, Radiologist, MD - 11/01/2023 [facility] Patient Name: Nate Calvert Procedure Date: 11/01/2023 11:19 AM Date of : 1955 Admit Type: Outpatient Age: 67 Room: [facility] 2 Gender: Male Attending MD: Hugh Craig MD, [id number] Procedure: Bronchoscopy Indications: Mediastinal staging of confirmed lung cancer., Known lung cancer of the left lower lobe Providers: Hugh Craig MD (Doctor), Clifton Seymour, RN (Assisting Nurse), Josefina Sharma RN , Nena Huang RN (Assisting Nurse) Referring MD: Requesting Physician: Preston Lucio Patient Profile: Refer to note in patient [...] physician, the nurse, the anesthesiologist and the casing tier in the procedure room. Mental Status Examination: [...] 10L) and left interlobar region (level 11L). Impression: - Known lung cancer of the left lower lobe - Lymph node sizing and sampling was performed. - Rapid On-Site Evaluation (KRISTOPHER): Preliminary cytology was suggestive suggestive of benign-appearing lymphoid tissue in node level 4R, node level 4L, node level 7, node level 10L and node level 11L (final results are pending). Recommendation: - Await test results. Attending Participation: I personally performed the entire procedure. Dr. Hugh Craig MD 11/01/2023 1:34:50 PM This report has been signed electronically by Hugh Craig MD Number of Addenda: 0 Note Initiated On: 11/01/2023 11:19 AM Procedure Start: 12:22:23 PM Procedure End: 12:58:25 PM Authorizing ProviderResult TypeResult StatusGeneric External Data Provider CLINISYNC IMAGINGFinal Result documented in this encounter Visit Diagnoses Not on filedocumented in this encounter Additional Health Concerns AssessmentNoted TimeA fall risk assessment has been completed for the patient 08/11/2023 12:48 PM EDTdocumented as of this encounter Care Teams Team MemberRelationshipSpecialtyStart DateEnd Date Dick Boss MD PCP - GeneralFamily Medicine04/20/23 Nakia Aggarwal DO [address] [facility] [address] [facility] [place] [phone] PCP - Treasure MA12/06/2411 Dick Boss MD [address] [place] [address] PCP - Treasure [place] Montse Duran, RN [address] [place] [place] [address] Registered NurseFamily Medicinedocumented as of this encounter
--- OUTSIDE RECORDS SUMMARY | 2025-01-07 08:57 | XMS_ITS | Clinical Summary ---
Author Organization [employer] Address [id number] [place] [address] Care Team Providers Care Assessor Name Role Phone Dick Boss MD Primary Care Provider [phone] Allergies Active AllergyReactionsCriticalityNoted DateCommentsSulfa (Sulfonamide Antibiotics)07/17/2018 Medications [...] tablet 5Active Active Problems ProblemNoted DateDiagnosed DateMixed ajileeftkotewr37/30/2024Malignant neoplasm of upper lobe of left lung12/09/2024Chemotherapy-induced uvtrvzfral71/24/2024 Chronic obstructive pulmonary akmedwm7510/20/2023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10/12/2023 Overview (04/18/2024): Last Assessment & Plan: Pathology showed cancer and follow up with oncology as scheduled. Left-sided cpmxiwhj54/23/2024enign prostatic hyperplasia with lower urinary tract dytqepbo76/11/2023 Overview (04/18/2024): Last Assessment & Plan: Occasional symptoms but tolerable and continue terazosin. Opbwdqpkbuhw93/28/2022Occlusive disease, yvxnyhey97/28/2022AD (peripheral artery disease)05/04/2021 Overview (04/18/2024): Last Assessment & Plan: Symptoms stable and follow up with vascular. Bilateral carotid artery sknfrjgu87/23/2021Temporal bejnrwoiywvdr08/16/2019 Watgxqdxeqamvw30/13/2019Postviral fatigue ifjvhkkd59/13/2019Essential sproenwrqmqo08/13/2019Infectious colitis, enteritis and gastroenteritis 07/17/2018Hypothyroidism, postradioiodine vojoszi4404/29/2016 Overview (04/18/2024): Last Assessment & Plan: Medication adjusted and repeat labs next month. 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 Essential hypertension; Bilateral carotid artery stenosis; Occlusive disease, arterialfrom Last 3 Months Family History Medical HistoryRelationNameCommentsHeart diseaseFatherHypertensionFatherStroke MotherRelationNameStatusCommentsFatherDeceasedMotherDeceased Social History Tobacco UseTypesPacks/DayYears UsedDateSmoking Tobacco: FormerCigarettes0.850.6 1973 - 09/29/2023Smokeless Tobacco: Never Tobacco Cessation:Counseling Given: Not Answered Alcohol UseStandard Drinks/WeekCommentsYes0 (1 standard drink = 0.6 oz pure alcohol)moderateAHC UtilitiesAnswerDate RecordedIn the past 12 months has the [employer], gas, oil, or water [facility] threatened to shut off services in your [...] as a part of a household?No09/27/2023hildcareAnswer Date SksbhdfvIqaxzvqmuZdihekc78/12/2019EmploymentAnswerDate RecordedEmployment Lmruwdx0208/16/2018Hunger ScreeningAnswerDate RecordedWithin the past 12 months we worried whether our food would run out before we got money to buy more.Never True09/26/2024Within the past 12 months the food we bought just didn't last and we didn't have money to get more.Never True09/26/2024Purpose - LifeAnswerDate RecordedPurpose and direction in tureRqksnss22/11/2021ex and Gender Information ValueDate RecordedSex Assigned at BirthNot on fileLegal SnzHuxt8710/10/2014 11:24 AM EDTGender IdentityNot on fileSexual OrientationNot on file Last Filed Vital Signs Vital SignReadingTime TakenCommentsBlood Mtotdtza457/6807 1:36 PM EDT Imrjp6752 1:36 PM OISQobqkiotmiz64.8 ??C (98.2 ??F)07/31/2024 4:02 PM EDTRespiratory Vbvj941307/31/2024 4:45 PM EDTOxygen Yitrymmxqb51%09/26/2024 1:36 PM EDTInhaled Oxygen Concentration--Cqznaq40.8 kg (176 lb)09/26/2024 1:36 PM EDT Eejlia750.6 cm (5' 6 )09/26/2024 1:36 PM EDTBody Mass Index28.41009/26/2024 1:36 PM EDT Plan of Treatment DateTypeDepartmentCare Team (Latest Contact Info)Quseftaaxis46/04/2025 8:30 AM ESTAppointment [facility] [address] [place] [address] Bina Resendiz, DO [address] [address] [employer] [address] [place] [address] 02/11/2025 9:30 AM ESTOffice Visit [facility] [address] [place] [address] Bina Resendiz, DO [address] [place] [address] Health MaintenanceDue DateLast DoneCommentsStatin Use: Lvbgatkqyyxrrl30/29/1956 Depression Yrflyeqco73/29/1968Adult BMI Follow Up Plan12/03/1973DTaP,Tdap and Td Vaccines (1 - Tdap)12/03/1974RSV ( or age 60+ yrs) (1 - Risk 60-74 years 1-dose series)2015Abdominal Aortic Aneurysm (AAA) Vlqmqd9212/03/2020Fall Risk Hgdtbygpw15/29/2021OVID-19 Vaccine ( season)2024 02/18/2021, 06/02/2020, 02/26/2021Influenza Zciztmc5811/05/2024dult BMI Screening /Tobacco Lkepytmbf15Zoster (Shingles) XgmaaukCknxnhstu90/16/2019, 07/02/2018 Goals GoalPatient Goal TypeAssociated ProblemsRecent ProgressPatient-Stated?Author [...]
--- OUTSIDE RECORDS SUMMARY | 2025-01-07 08:57 | XMS_ITS | Clinical Summary ---
Author Organization [facility] Address [address] [place] [address] Care Team Providers Care Care Coordinator Name Role Phone Dick Boss MD Primary Care Provider [phone] Allergies Active AllergyReactionsCriticalityNoted UnrhWwncboulUwrrtyyckfUffzm20/24/2024 Tiotropium BromideShortness of qgnrmkIcdx22/20/2024 Pt reported having increased shortness of breath after trying med 1 time. Sulfa AntibioticsUnknown,MqofJaqm94/10/2012 Unkown, was a child Medications MedicationSigDispense QuantityRefillsLast FilledStart DateEnd DateStatus propranolol (Inderal) 20 MG tablet TAKE 1 TABLET BY MOUTH NEEDED FOR ANXIETY ATTACKS ONCE A DAY12/25/2021ctive ascorbic acid (Vitamin C) 500 MG tablet Take 500 mg by mouth in the morning.Active aspirin 81 MG EC tablet Take 81 mg by mouth in the morning.Active Krill Oil ([place]-3) 500 MG capsule Take by mouth.Active Multiple Vitamin (Multi-Vitamin) tablet Take 1 tablet by mouth in the morning.Active sildenafil (Viagra) 100 MG tablet Indications:Erectile dysfunction, unspecified erectile dysfunction typeTake 1 tablet (100 mg) by mouth Daily as needed for erectile dysfunction. 10 tablet ctive albuterol HFA 90 mcg/act inhaler Inhale 2 puffs every 6 (six) hours if yhjoli8710/20/2023ctive omeprazole OTC (PriLOSEC OTC) 20 MG EC [...] capsule 5Active Active Problems ProblemNoted DateDiagnosed DateSeborrheic apqynpwxin68/12/2025Medicare annual wellness visit, ploifncprh18/12/2025 Assessment & Plan (04/18/2024 10:42 AM EST): Reviewed labs. Discussed proper diet and regular aerobic exercise. Need aerobic exercise 5-6 days aweek for 30 minutes at a time. Smaller portions and limit total calories. Colonoscopy every 10 years. Tetanus every 10 years. Advised not to smoke. Encounter for long-term (current) use of ffmdgvxjvia49/12/2024hemotherapy- induced sukxvbpcre29/24/2024 Assessment & Plan (10/17/2024 11:09 AM EDT): Symptoms resolved and monitor. Assessment & Plan (01/17/2024 11:03 AM EST): Continued pain and try lyrica. Use norco PRN. Assessment & Plan (12/29/2023 2:25 PM EDT): Worsening pain and discussed options. Suggested trial of lyrica but patient declined. Chronic obstructive pulmonary vontiba5410/20/2023 Assessment & Plan (10/17/2024 11:09 AM EDT): [...] EDT): Worsening anxiety and use valium PRN. Rlzrimot80/07/2024 Assessment & Plan (10/12/2023 12:32 PM EDT): [...] follow up with oncology as scheduled. Primary kwbpasiy93/29/2024 Assessment & Plan (10/17/2024 11:10 AM EDT): Not sleeping well and try doxepin. Assessment & Plan (12/29/2023 2:26 PM EDT): Sleeping well with trazodone and continue. Left-sided ecfzznfh34/23/2024DD (degenerative disc disease), hevyupvm60/14/2024 Assessment & Plan (04/20/2023 12:12 PM EST): Pain stable and use norco PRN. Increase activity and walk regularly. Benign prostatic hyperplasia with lower urinary tract mhdtvvwo60/11/2023 Assessment & Plan (04/20/2023 12:12 PM EST): Occasional symptoms but tolerable and continue terazosin. H/O malignant neoplasm of skin12/15/2022egenerative lumbar spinal stenosis 12/15/2022 Assessment & Plan (04/20/2023 12:12 PM EST): Pain stable and use norco PRN. Increase activity and walk regularly. 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 Increase ambulation. Assessment & Plan (12/29/2023 2:26 PM EDT): Worsening claudication and contact oncology about resuming plavix. Increase ambulation. Assessment & Plan (04/20/2023 12:13 PM EST): Symptoms stable and follow up with vascular. Mgqktapwhmc15/19/2021ilateral carotid artery xdglhequ33/23/2021Family history of lung wjfyue9308/01/2019Erectile jqfexhorpxn97/01/2019Rotator cuff arthropathy of right otsddxmh48/01/2019Postviral fatigue rwmfffna19/13/2019Headache disorder 05/25/2018Mixed xsbnvqkahacimu72/31/2017Low jlsyikcysocp62/31/2017Seasonal allergic rhinitis due to ondkor5304/29/20169908Zvxkmnbn45/23/2017Chronic fatigue izwrpjwk64/23/2017History of gastrointestinal cbnukme9204/29/2016Hypothyroidism, postradioiodine dlvvcjn6604/29/2016 Assessment & Plan (04/20/2023 12:13 PM EST): Medication adjusted and repeat labs next month. Impingement syndrome of left shoulder wslksb1904/29/2016Mixed conductive and sensorineural hearing loss04/29/2016Myringotomy tube cepdyj1804/29/2016 Trochanteric bursitis of right hip04/29/2016 Assessment & Plan (10/17/2024 11:10 AM EDT): Pain unchanged follow with ortho. Assessment & Plan (07/25/2023 10:49 AM EDT): Pain unchanged and refer to ortho for possible injection. Finish prednisone. Use ice PRN. Handout with ROM exercises to patient. Hx of fusion of cervical spine02/16/2012Essential hscxzhsyknvw33/19/2011 Assessment & Plan (10/17/2024 11:09 AM EDT): BP controlled and monitor PRN. Assessment & Plan (01/17/2024 11:03 AM EST): BP controlled and monitor PRN. Assessment & Plan (04/20/2023 12:13 PM EST): BP controlled and monitor PRN. Resolved Problems ProblemNoted DateDiagnosed DateResolved DateAcute bronchitis due to other specified eaudjyhag15/09/2023 Assessment & Plan (05/02/2023 11:30 AM EST): [...] re-evaluation. H/O TIA (transient ischemic attack) and ykswup90Inflammation of joint of left shoulder nvleye01Not currently working due to disabled skwxie95Other specified postprocedural states Lower urinary tract symptoms due to benign prostatic rfrxbzxodgc37Hyperglycemiaifficulty kgmnsgiz39ight internal carotid eryzukuxf78 Skin sensation rbvvjaeidnw86isorder of jnizguk5006/13/2020 04/20/2023Lumbago with sciatica, unspecified sideifficulty qluhhhk23isplacement of lumbar intervertebral disc without qpfijqcfcf70Intervertebral disc disorder of lumbar region with vdtulktdep78onstipation/01/2024Otorrhea of left eardult BMI 30.0-30.9 kg/sq m0Temporal dqazlrzubswky42Infectious colitis, enteritis and jgdwmsxvhouheaq51Tinnitus of left ear Family history of prostate latkdt56taxia Hifmnxhhmql78External rrswoobxvwj72History of stroke without residual pytcwsmt37Unemployed04/29/2016 04/20/2023Impairment of jimpdjq16hronic pain syndrome igarette gkuqby34Hyporeflexia02/16/2012 04/20/2023 Overview (09/13/2022): [facility] Tfrbzkhxythszf82 Encounters DateTypeDepartmentCare OcorVwuxhlicjjs92/16/2025 10:00 AM EDTAncillary Procedure [facility] [address] [place] [address] Trochanteric bursitis, right hip11/20/20249994Nomoel86/22/2025linisync Result Encounter [facility] External Department Unsolicited Provider, Generic External Data 10/24/2024 1:30 PM EDTTreatment [facility] [address] [place] [address] Malik Parker PTA Trochanteric bursitis of right hip (Primary Dx)10/24/2024amboo flowsheet [facility] [address] [place] [address] Malik Parker PTA 10/24/20244413Yczvja68/13/2025 1:30 PM EDTTreatment [facility] [address] [place] [address] Ayesha Mayes, NEERAJ Trochanteric bursitis of right hip (Primary Dx)10/17/2024 10:00 AM EDTOffice Visit [facility] [address] [place] [address] Dick Boss MD Essential hypertension (Primary Dx); Chronic obstructive pulmonary disease, unspecified COPD type (HCC); Chemotherapy-induced neuropathy (HCC); 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); Primary insomnia; Trochanteric bursitis of right hip10/17/2024amboo flowsheet [facility] [address] [place] [address] Dick Boss MD 10/17/20249997Ljpizx26/06/2025[facility] [address] [place] [address] Dick Boss MD Impingement syndrome of left shoulder region (Primary Dx); Essential hypertensionfrom Last 3 Months Immunizations ImmunizationAdministration DatesNext DuePneumococcal Conjugate PCV 1305 Pneumococcal Polysaccharide SFKP8346/01/2023,12/16/2014Zoster, Recombinant 11/20/2018,07/02/2018 Family History Medical HistoryRelationNameCommentsHeart diseaseFatherHypertensionFatherProstate [...] relatives?Once a week04/19/2023How often do you attend lutheran or yazdanism services?More than 4 times per year04/19/2023o you belong to any clubs or organizations such as lutheran groups, unions, fraternal or athletic elizabeth ups, or school groups?Patient ljosngeg74/13/2024How often do you attend meetings of the clubs or organizations you belong to?Patient ckrbhurk41/13/2024re you , , , , never , or living with a partner? Khutcsq8304/19/2023UDIT-CAnswerDate RecordedQ1: How often do you have a [...] hard at all04/19/2023HQ-2AnswerDate RecordedPatient Health Questionnaire-2 Score0 04/18/2024[facility] [place] [facility] - Occupational Stress QuestionnaireAnswerDate RecordedDo you feel stress - tense, restless, nervous, or anxious, or unable to sleep at night because yourmind is troubled all the time - these days?Patient qbfwaiei08/13/2024Exercise Vital SignAnswerDate RecordedOn average, how many days [...] steady place to sleep or slept in [facility] (including now)?No 04/19/2023Sex and Gender InformationValueDate RecordedSex Assigned at BirthNot on fileLegal UfoClql5605/19/2022 7:20 PM EDTGender IdentityNot on fileSexual OrientationNot on file Last Filed Vital Signs Vital SignReadingTime TakenCommentsBlood Fpgqnldk031/6808 10:30 AM EDT Muvzj3142/ 10:30 AM DLXIjcgvlyfccx81.6 ??C (97.8 ??F)10/17/2024 10:30 AM EDTRespiratory Iloq120310/17/2024 10:30 AM EDTOxygen Qsjjdszdsy96%10/17/2024 10:30 AM EDTInhaled Oxygen Concentration--Kgnnca55.3 kg (177 lb)10/17/2024 10:30 AM CPLAqhjjt469.6 cm (5' 6 )10/17/2024 10:30 AM EDTBody Mass Index28.57010/17/2024 10:30 AM EDT Plan of Treatment DateTypeDepartmentCare Team (Latest Contact Info)Zzyxwnqlpdn91/21/2026 3:15 PM EDTOffice Visit [facility] [address] [place] [phone] Ada Claudio MD [address] [facility] [address] [place] [address] Health MaintenanceDue DateLast DoneCommentsCT Fpnlpenfjsmh84/29/1956FIT-DNA 1955FIT1955FOBT1955 9556Mhpwhtidyadnx07/29/1956DTaP/Tdap/Td Vaccines (1 - Tdap)12/03/1962COVID-19 Vaccine ( season)2024 02/18/2021, 06/02/2020, 05/02/2020Influenza Vaccine (#1)5Colonoscopy Colorectal Cancer Pvetdcafg50/29/2026Pneumococcal Vaccine: 65+ OoevsEojpzuptp66/11/2023, 08/04/2016, 12/16/2014HIB VaccinesAged OutNo longer eligible based on patient's age to complete this topicHPV VaccinesAged OutNo longer eligible based on patient's age to complete this topicHepatitis A VaccinesAged OutNo longer eligible based on patient's age to complete this topic Hepatitis B VaccinesAged OutNo longer eligible based on patient's age to complete this topicIPV VaccinesAged OutNo longer eligible based on patient's age to complete this topicMeningococcal B VaccineAged OutNo longer eligible based on patient's age to complete this topicMeningococcal VaccineAged OutNo longer eligible based on patient's age to complete this topicRotavirus VaccinesAged Out No longer eligible based on patient's age to complete this topic Procedures Procedure NamePriorityDate/TimeAssociated DiagnosisCommentsMR HIP RIGHT WO IV KWDQWIYYNvlcpav87/16/2025 11:24 AM EDT Trochanteric bursitis, right hip XR CHEST 2V FRONTAL/LAT10/26/2024 8:51 AM EDT JAXVGCAMGKTLndfnqq87/29/2016 12:00 PM EDT from Last 3 Months or Most Recently Relevant to Health Maintenance Results * MR hip right wo IV contrast (11/20/2024 11:24 AM EDT)Anatomical Region LateralityModalityLower Extremities, HipRightMagnetic ResonanceSpecimen (Source)Anatomical Location / LateralityCollection Method / VolumeCollection TimeReceived Time11/20/2024 2:56 PM EDT Impressions 11/20/2024 3:01 PM EDT Degenerative changes as discussed. No significant right trochanteric bursitis. ELECTRONICALLY SIGNED BY: MD Jan Crawford 11/20/2024 3:01 PM EDT EXAMINATION/TECHNIQUE: MR HIP RIGHT WO IV CONTRAST History: Chronic right hip pain. Trochanteric bursitis. Comparison: MRI 08/09/2023. RESULT: RIGHT HIP JOINT: No distinct measurable full-thickness chondral defect. Probable areas of partial-thickness chondral loss. Degenerative signal in the labrum. No evidence for fracture. No joint effusion. LEFT HIP JOINT: Large ksucb-ln-kcpt with degenerative changes. ? SI JOINTS: Unremarkable. [...] No joint effusion. LEFT HIP JOINT: Large rgumq-cx-kyhx with degenerative changes. SI JOINTS: Unremarkable. PUBIC [...] Clifton Garcia MD Authorizing ProviderResult TypeResult StatusRobanupama ELLIOTT MRI PROCEDURES Final Result * XR CHEST [...] any questions regarding this interpretation, please call [phone]. If you are unable to reach us at the number above, please feel free to contact [facility] at [phone]. [id number]^AGFA_IDC^SI^ACN Procedure Note Radiology, Radiologist, - 10/26/2024 * [...] any questions regarding this interpretation, please call [phone]. If you are unable to reach us at the number above, please feel free to contact [facility] eRadiology at [phone]. [id number]^AGFA_IDC^SI^ACN Authorizing ProviderResult TypeResult StatusGeneric External Data Provider CLINISYNC IMAGINGFinal Result * Colonoscopy (10/03/2015 12:00 PM EDT)Anatomical RegionLateralityModality EndoscopySpecimen (Source)Anatomical Location / LateralityCollection Method / VolumeCollection TimeReceived Time10/03/2015 12:00 PM EDT Narrative 10/03/2015 12:00 PM EDT PERFORMED AT [facility] LOCATION:[id number] Abnormal Procedure Note CONVERSION, GENERIC - 07/22/2022 PERFORMED AT [facility] LOCATION:[id number] Abnormal Authorizing ProviderResult TypeResult StatusJonathan F DillerENDOSCOPY PROCEDURE ORDERABLESFinal Result from Last 3 Months or Most Recently Relevant to Health Maintenance Insurance Advance Directives TypeDate RecordedPatient RepresentativeExplanationAdvance Directives and Living Will living will-healthcare POA Care Teams Team MemberRelationshipSpecialtyStart DateEnd Date Dick Boss MD PCP - GeneralFamily Medicine04/20/23
--- OUTSIDE RECORDS SUMMARY | 2025-01-07 08:57 | XMS_ITS | Encounter Summary ---
Author Organization [facility] Address [address] [place] [address] Care Team Providers Care Hog Cooler Name Role Phone Dick Boss MD Primary Care Provider [phone] Montse Duran RN Unavailable [phone] Nakia Aggarwal DO Unavailable [phone] Dick Boss MD Unavailable Encounter Details DateTypeDepartmentCare Team (Latest Contact Info)Oauxgyzxumn13/20/2024Clinisync Result Encounter [facility] External Department Unsolicited Provider, [...] relatives?Once a week04/19/2023How often do you attend mormonism or taoist services?More than 4 times per year04/19/2023o you belong to any clubs or organizations such as mormonism groups, unions, [employer] or athletic [employer] ups, or school groups?Patient wkhyztkv00/13/2024How often do you attend meetings of the clubs or organizations you belong to?Patient pkrwebhs66/13/2024re you , , , , never , or living with a partner? Dbdrdnf6904/19/2023UDIT-CAnswerDate RecordedQ1: How often do you have a [...] hard at all04/19/2023HQ-2AnswerDate RecordedPatient Health Questionnaire-2 Score0 04/18/2024[facility] [place] [facility] - Occupational Stress QuestionnaireAnswerDate RecordedDo you feel stress - tense, restless, nervous, or anxious, or unable to sleep at night because yourmind is troubled all the time - these days?Patient xvwtudgf47/13/2024Exercise Vital SignAnswerDate RecordedOn average, how many days [...] steady place to sleep or slept in [facility] (including now)?No 04/19/2023Sex and Gender InformationValueDate RecordedSex Assigned at BirthNot on fileLegal QflFgdo5305/19/2022 7:20 PM EDTGender IdentityNot on fileSexual OrientationNot on filedocumented as of this encounter Functional Status * Over the past 2 weeks, how often have you been bothered by any of the following problems?QuestionAnswerDate of AssessmentAuthorLittle interest or pleasure in doing thingsNot at all04/18/2024 10:00 AM Gina Osuna MA Feeling down, depressed, or hopelessNot at all04/18/2024 10:00 AM Gina Osuna MAPatient Health Questionnaire-2 Rdpyt658 10:00 AM Gina Osuna MA * QuestionAnswerDate of AssessmentAuthorTrouble falling or staying asleep, or sleeping too muchNearly every day04/18/2024 10:00 AM Gian Osuna MA Feeling tired or having little [...] 10:00 AM Gina Osuna MAPatient Health Questionnaire-9 Nsana16604/18/2024 10:00 AM Gina Osuna MA documented as of this encounter Plan of Treatment DateTypeDepartmentCare Team (Latest Contact Info)Qxiadpakntv33/21/2026 3:15 PM EDTOffice Visit [facility] [address] [place] [address] Ada Claudio MD [address] [place] [address] documented as of this encounter Procedures Procedure NamePriorityDate/TimeAssociated DiagnosisCommentsCT ABD/PEL W IVCON 01/25/2024 10:16 AM EST documented in this encounter Results * CT ABD/PEL W IVCON (01/25/2024 10:16 AM EST)Anatomical RegionLaterality ModalityOtherSpecimen (Source)Anatomical Location / LateralityCollection Method / VolumeCollection TimeReceived Time01/25/2024 10:16 AM EST Narrative 01/25/2024 11:03 AM EST * * *Final Report* * * DATE OF EXAM: Jan 25 2024 10:16AM ?? [facility] ?? 0530 ??- ??CT ABD/PEL W IVCON ??/ PROCEDURE REASON: multiple diagnoses ? * * * * Physician Interpretation * * * * RESULT: EXAMINATION: ??CT ABDOMEN AND PELVIS WITH IV CONTRAST PATIENT/TECHNOLOGIST PROVIDED HISTORY: CLINICAL INFORMATION ( PROVIDED BY ORDERING CLINICIAN) : ??Malignant neoplasm of lung, unspecified laterality, unspecified part of lung (HCC) Malignant neoplasm of upper lobe of left lung (HCC) TECHNIQUE: CT of the abdomen and pelvis was performed using standard technique, scanning from just above the dome of the diaphragm to the pubic symphysis. ??. Contrast: IV: ??100 ml of Omnipaque 350 Oral: ??500 ml of Omni 240 10-25ml diluted with water CT Radiation dose: Integrated Dose-length product (DLP) for this visit = ?? 1483 mGy*cm. CT Dose Reduction Employed: Automated exposure control (AEC) COMPARISON: CT runoff 09/24/2023 Abdomen / Pelvis: Liver: ??No focal hepatic lesions. Spleen: No focal splenic lesion. Pancreas: No focal pancreatic lesions. Adrenals: No mass. Biliary: No bile duct dilation. ??No gallbladder wall thickening. Kidneys: Symmetric nephrograms bilaterally without hydronephrosis. 7 mm left lower pole calculus. 1.4 cm right lower pole cyst. Vasculature: ??The celiac axis and SMA are patent. The portal vein and branches, splenic vein, SMV, and hepatic veins are patent. ??Severe atherosclerotic calcifications of the abdominal aorta without aneurysm. GI tract: No bowel obstruction. Lymph nodes: No lymphadenopathy by CT size criteria. Mesentery/Peritoneum: No ascites, fluid collection, or mass. Pelvis: No mass or fluid collection. Urinary bladder is unremarkable. Bones/Soft tissues: Degenerative changes at L4-L5. No aggressive osseous lesions. Lower thorax: Dedicated CT imaging of the chest was performed concurrently and is dictated separately. Microfilm Technician (topogram) images: Unremarkable. IMPRESSION: No metastatic disease in the abdomen or pelvis. Transcribe Date/Time: Jan 25 2024 10:48A Dictated by: BASHIR SUH MD This examination was interpreted and the report reviewed and electronically signed by: BASHIR SUH MD on Jan 25 2024 11:00AM ??EST Thank you for allowing us to participate in the care of your patient. Should there be any questions regarding this interpretation, please call [phone]. If you are unable to reach us at the number above, please feel free to contact [facility]Radiology at [phone]. [id number]^AGFA_IDC^SI^ACN Procedure Note Radiology, Radiologist, - 01/25/2024 * * *Final Report* * * DATE OF EXAM: Jan 25 2024 10:16AM [facility] 0530 - CT ABD/PEL W IVCON [...] was performed concurrently and is dictated separately. Microfilm Technician (topogram) images: Unremarkable. IMPRESSION: No metastatic disease in the abdomen [...] any questions regarding this interpretation, please call [phone]. If you are unable to reach us at the number above, please feel free to contact [facility] at [phone]. [id number]^AGFA_IDC^SI^ACN Authorizing ProviderResult TypeResult StatusGeneric External Data Provider CLINISYNC IMAGINGFinal Result documented in this encounter Visit Diagnoses Not on filedocumented in this encounter Additional Health Concerns AssessmentNoted TimeA fall risk assessment has been completed for the patient 08/11/2023 12:48 PM EDTdocumented as of this encounter Care Teams Team MemberRelationshipSpecialtyStart DateEnd Date Dick Boss MD PCP - GeneralFamily Medicine04/20/23 Nakia Aggarwal DO [address] [facility] [address] [place] [phone] PCP - Treasure CLARK/ Dick Boss MD [address] [place] [address] PCP - Treasure MA/ Montse Duran, RN [address] [place] [address] Registered NurseFamily Medicinedocumented as of this encounter
--- OUTSIDE RECORDS SUMMARY | 2025-01-07 08:57 | XMS_ITS | Clinical Summary ---
Author Organization [facility] Address [address] [place] [address] Phone Care Team Providers Care Brush Maker Name Role Phone Mikhail Vega MD Primary Care Provider + Social History Tobacco UseTypesPacks/DayYears UsedDateSmoking Tobacco: Never AssessedSex and Gender InformationValueDate RecordedSex Assigned at BirthNot on fileLegal Sex Male01/29/2022 11:51 AM ESTGender IdentityNot on fileSexual OrientationNot on file Last Filed Vital Signs Vital SignReadingTime TakenCommentsBlood Nvxbctft147/8403 11:27 AM EDT Yyvfo6311 11:27 AM EDTTemperature--Respiratory Sska0983 11:27 AM EDTOxygen Jmufdchxdv04%05/16/2019 11:27 AM EDTInhaled Oxygen Concentration-- Areczz29.1 kg (185 lb 6.2 oz)05/16/2019 11:27 AM QVCAwsuco961.6 cm (5' 6 ) 05/16/2019 11:27 AM EDTBody Mass Index29.9203 11:27 AM EDT Plan of Treatment Not on file Care Teams Team MemberRelationshipSpecialtyStart DateEnd Date Mikhail Vega MD [address] [place] [address] PCP - Syftnvd93/12/15
[2025-01-07 09:09] VITALS: BP 159/82; PULSE 70; TEMP 36.7; O2SAT 97
[2025-01-07 09:39] VITALS: BP 156/67; PULSE 67; O2SAT 95
[2025-01-07 09:40] VITALS: BP 165/72; PULSE 71; O2SAT 95
[2025-01-07] MEDS: LIDOCAINE HCL 2% 400 MG/20 ML MDV INJ (09:41)
[2025-01-07] MEDS: IOHEXOL 240 MG/ML - 10 ML VIAL 24 MG INJ (09:41)
[2025-01-07] MEDS: BUPIVACAINE HCL 0.25% PF 25 MG/10 ML VIAL 9 ML INJ (09:41)
[2025-01-07] MEDS: METHYLPREDNISOLONE ACETATE 40 MG/ML VIAL IM (09:42)
--- NOTE | 2025-01-07 09:50 | W.PM.PROCNOT ---
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 A timeout was completed verifying the correct patient, procedure site, position, and special equipment.? The left T7 rib was contacted with the needle tip 1 cm lateral to the costotransverse junction and the needle tip was walked caudally.? Omnipaque dye was injected to show adequate spread.? The above-mentioned injectate was placed in 1 mL aliquots and the procedure was repeated at left T8, 9.? The patient tolerated the procedures well and was found suitable for discharge in the accompaniment of a responsible adult. Anesthesia: Local Surgeon: Sariah William Pathology: none sent Condition: stable Disposition: no change
== END 2025-01-07 09:49 | disposition home or self-care (01) ==
PROVIDERS: PCP Family Medicine; Visit Provider Anesthesiology
DX: G58.0 Intercostal neuropathy (principal); E11.8 Type 2 diabetes mellitus with unspecified complications; Z79.85 Long-term (current) use of injectable non-insulin antidiabetic drugs; Z79.84 Long term (current) use of oral hypoglycemic drugs
CPT/HCPCS: 36415; 64420; 64421; 82948; J0665; J1010; Q9966

== ENCOUNTER 2025-01-17 14:08 | Outpatient (OUT) | payer MEDICARE, SELFPAY ==
--- OUTSIDE RECORDS SUMMARY | 2025-01-17 14:12 | XMS_ITS | Encounter Summary ---
Author Organization [facility] Address [address] [place] [address] Care Team Providers Care Adolescent Coordinator Name Role Phone Dick Boss MD Primary Care Provider [phone] Preston Lucio MD Unavailable [phone] Gerald Dumont MD Unavailable Kathy Ruiz MD Unavailable [phone] Preston Lucio MD Unavailable [phone] Michelle Galvez BRASS POURER.KNOCKDOWN MAN Unavailable [phone] Noemy Chicas RN Unavailable [phone] Steffany Damian Unavailable Unavailable Valorie Fernandez BRASS POURER.KNOCKDOWN MAN Unavailable + Anna Rasmussen RN Unavailable Unavail able Source Comments In the event this information is protected by the Federal Confidentiality of Alcohol and Drug AbusePatient Records regulations: The Federal rules restrict any use of the information to criminally investigate or prosecute any alcohol or drug abuse patient.[facility] Reason for Visit * ReasonCommentsRefill Request Encounter Details DateTypeDepartmentCare Team (Latest Contact Info)Degjssvkbkr84/09/2025Refill Hematology/Oncology [address] [place] [address] Tianna King PA-C [address] [place] [address] Refill Request Social History Tobacco UseTypesPacks/DayYears UsedDateSmoking Tobacco: FormerCigarettes0.550 09/22/1973 - 4Passive Smoke Exposure: CurrentSmokeless Tobacco: Never Comments:Quit September 26 Alcohol UseStandard Drinks/WeekCommentsNo0 (1 standard drink = 0.6 oz pure alcohol)PHQ-2AnswerDate RecordedPHQ-2 qyvtl0895Area Deprivation Index AnswerDate RecordedNational Score (1-100), lower number is lower risk75 10/21/2023State Score (1-10), lower number is lower stud1034Data from: https://www.neighborhoodatlas.[facility]/. Last address used for [place] [id number] and Gender InformationValueDate RecordedSex Assigned at BirthNot on fileLegal OjbTzts49/02/2012 10:16 AM EST Gender IdentityNot on fileSexual OrientationNot on filedocumented as of this encounter Functional Status * Are you deaf or do you have serious difficulty hearing?AnswerDate of EpmaiflmemGzhoafJw57/23/2015 11:07 AM Liliya Hatch MA * Are you blind or do you have serious difficulty seeing, even when wearing glasses?AnswerDate of VrjrncgzsxYmwsmoUj96/23/2015 11:07 AM Liliya Hatch MA * Do you have serious difficulty walking or climbing stairs?AnswerDate of LduwuhixenQhjpwtGi59/23/2015 11:07 AM Liliya Hatch MA * Do you have difficulty dressing or bathing?AnswerDate of AssessmentAuthorNo 08/27/2014 11:07 AM Liliya Hatch MA * Because of a physical, mental, or emotional condition, do you have difficulty doing errands alone such as visiting a doctor's office or shopping?AnswerDate of VlwqjrsvovEkqyjnZr07/23/2015 11:07 AM Liliya Hatch MA documented as of this encounter Mental Status * Because of a physical, mental, or emotional condition, do you have serious difficulty concentrating, remembering, or making decisions?AnswerEntry Date RwqssbMc19/23/2015 11:07 AM Liliya Hatch MA documented in this encounter Plan of Treatment DateTypeDepartmentCare Team (Latest Contact Info)Suwuyuksmfz32/29/2025 8:00 AM ESTAppointment Radiology Pet CT [address] [place] [address] PET03/11/2025 2:00 PM ESTVisit (SP) Office Hematology/Oncology [address] [place] [address] [place] [address] Preston Lucio MD [address] [place] [address] [place] [address] FOLLOW UP AFTER PET SCANdocumented as of this encounter Visit Diagnoses Diagnosis 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 Malignant neoplasm of unspecified part of unspecified bronchus or lung (HCC) Neuralgia Neuralgia, neuritis, and radiculitis, unspecified documented in this encounter Care Teams Team MemberRelationshipSpecialtyStart DateEnd Date Dick Boss MD [address] [place] [address] PCP - GeneralFamily Medicine10/21/23 Preston Lucio MD [address] [place] [address] [place] [address] Hematology/Oncology11/04/23 Gerald Dumont MD [address] [place] [address] [place] [address] Hematology/Oncology11/04/23 Kathy Ruiz MD [address] [place] [address] 11/04/23 Preston Lucio MD [address] [place] [address] [place] [address] PhysicianHematology/Oncology11/14/23 Michelle Glavez, BRASS POURER.KNOCKDOWN MAN [address] [place] [address] Nurse PractitionerHematology/Oncology11/14/23 Noemy Chicas, EWELINA [address] [place] [address] Specialty Care CoordinatorHematology/Oncology11/14/23 Steffany Damian LSW Social Worker11/16/23 Valorie Fernandez, BRASS POURER.KNOCKDOWN MAN [address] [place] [phone] Hospice & Palliative Ipqfludc14/22/24 Anna Rasmussen RN Specialty Care CoordinatorHospice & Palliative Mgjgviwf15/22/24documented as of this encounter
--- OUTSIDE RECORDS SUMMARY | 2025-01-17 14:12 | XMS_ITS | Encounter Summary ---
Author Organization [facility] Address [address] [place] [address] Care Team Providers Care Frame Stripper And Crusher Name Role Phone Dick Boss MD Primary Care Provider [phone] Montse Duran RN Unavailable Nakia Aggarwal DO Unavailable [phone] Dick Boss MD Unavailable Encounter Details DateTypeDepartmentCare Team (Latest Contact Info)Jwqyssltmfx78/27/2024Clinisync Result Encounter [facility] External Department Unsolicited Provider, [...] relatives?Once a week04/19/2023How often do you attend mosque or buddhism services?More than 4 times per year04/19/2023o you belong to any clubs or organizations such as mosque groups, unions, [employer] or athletic [employer] ups, or school groups?Patient pujqcxhc18/13/2024How often do you attend meetings of the clubs or organizations you belong to?Patient wgftehst58/13/2024re you , , , , never , or living with a partner? Sxxpqbk8904/19/2023UDIT-CAnswerDate RecordedQ1: How often do you have a [...] RecordedPatient Health Questionnaire-2 Score0 04/18/2024[facility] [place] of Occupational Health - Occupational Stress QuestionnaireAnswerDate RecordedDo you feel stress - tense, restless, nervous, or anxious, or unable to sleep at night because yourmind is troubled all the time - these days?Patient irhnwsdt11/13/2024Exercise Vital SignAnswerDate RecordedOn average, how many days [...] InformationValueDate RecordedSex Assigned at BirthNot on fileLegal OnvEfad1605/19/2022 7:20 PM EDTGender IdentityNot on fileSexual OrientationNot on filedocumented as of this encounter Functional Status * Over the past 2 weeks, how often have you been bothered by any of the following problems?QuestionAnswerDate of AssessmentAuthorLittle interest or pleasure in doing thingsNot at all04/18/2024 10:00 AM Gina Osuna MA Feeling down, depressed, or hopelessNot at all04/18/2024 10:00 AM Gina Osuna MAPatient Health Questionnaire-2 Zwtcj768 10:00 AM Gina Osuna MA * QuestionAnswerDate [...] 10:00 AM Gina Osuna MAPatient Health Questionnaire-9 Owlba68504/18/2024 10:00 AM Gina Osuna MA documented as of this encounter Plan of Treatment DateTypeDepartmentCare Team (Latest Contact Info)Dpekxpgdkfn89/21/2026 3:15 PM EDTOffice Visit [facility] [address] [place] [phone] Ada Claudio MD [address] [place] [address] documented as of this encounter Procedures Procedure NamePriorityDate/TimeAssociated DiagnosisCommentsCCF CYTOLOGY NON-PEANUT BUTTER MAKER Whcfrep5811/01/2023 12:29 PM EDT VQGTAHMYYWDL57/27/2024 11:19 AM EDT documented in this encounter Results * [facility] CYTOLOGY NON-PEANUT BUTTER MAKER (11/01/2023 12:29 PM EDT)ComponentValueRef RangeTest MethodAnalysis TimePerformed AtPathologist SignatureCCF CASE REPORTCCFComment: Medical Cytology Report ? Case: [id number] ? Authorizing Provider: ??Uzma, Hugh Houser, MD ?Collected: ? 11/01/2023 12:29 PM? Ordering Location: ? [facility] ?Received: ?11/01/2023 01:13 PM ? Endoscopy [...] discrete evaluation episode. Intra-procedural assessment performed at [facility], [address] [place] [address] C[facility] ORDER COMMENTCCFComment: Pre-op diagnosis: Lung nodule [R91.1] [facility] FINAL PERFORMING LABCCFComment: Technical component, welding setter screening performed at [facility], [address] [id number] ?CLIA# [id number] Diagnostic interpretation performed at [facility], [address] [place] [address] ?CLIA# [id number] Anodizer: Mihai Vora M.D. Specimen (Source)Anatomical Location / LateralityCollection Method / Volume Collection TimeReceived Time11/01/2023 12:29 PM EDT11/01/2023 1:15 PM EDT Narrative CLINISYNC - 11/02/2023 3:25 PM EDT Specimen Type: SPECIMEN OBTAINED BY ASPIRATION Ordering Facility: [facility] ?Address: [facility] [place] [address] Original Ordering Provider: HUGH CRAIG Authorizing ProviderResult TypeResult StatusGeneric External Data Provider CLINISYNCFinal ResultPerforming OrganizationAddressCity/State/[facility] CodePhone Number CLINISYARELY [facility] [address] [place] [address] * BRONCHOSCOPY (11/01/2023 11:19 AM EDT)Anatomical RegionLateralityModalityOther Specimen (Source)Anatomical Location / LateralityCollection Method / Volume Collection TimeReceived Time11/01/2023 11:19 AM EDT Narrative 11/01/2023 1:34 PM EDT [facility] Patient Name: Nate Calvert Procedure Date: 11/01/2023 11:19 AM Date of : 1955 Admit Type: Outpatient Age: 67 Room: [facility] 2 Gender: Male Attending MD: Hugh Craig MD, [id number] Procedure: ? Bronchoscopy Indications: ? Mediastinal staging [...] the nurse, the ? anesthesiologist and the instructional supervisor in the ? procedure room. Mental Status [...] aspiration was also performed using an Olympus RightScaleiShot 22 gauge ? needle and sent for [...] Procedure Note Radiology, Radiologist, MD - 11/01/2023 [facility] Patient Name: Nate Calvert Procedure Date: 11/01/2023 11:19 AM Date of : 1955 Admit Type: Outpatient Age: 67 Room: [facility] 2 Gender: Male Attending MD: Hugh Craig MD, [id number] Procedure: Bronchoscopy Indications: Mediastinal staging of confirmed [...] physician, the nurse, the anesthesiologist and the instructional supervisor in the procedure room. Mental Status Examination: [...] Aggarwal DO [address] [facility] [address] [facility] [place] [phone] PCP - Treasure MA12/06/2411 Dick Boss MD [address] [place] [address] PCP - Treasure ID Montse Duran, RN [address] [place] [address] Registered NurseFamily Medicinedocumented as of this encounter
--- OUTSIDE RECORDS SUMMARY | 2025-01-17 14:12 | XMS_ITS ---
Author Organization [facility] Address [address] [place] [address] Care Team Providers Care Winding Inspector And Tester Name Role Phone Dick Boss MD Primary Care Provider Preston Lucio MD Unavailable [phone] Gerald Dumont MD Unavailable Kathy Ruiz MD Unavailable [phone] Preston Lucio MD Unavailable Michelle Galvez RIM ROLLER SETTER.CHRISTMAS TREE FARM MANAGER Unavailable Noemy Chicas RN Unavailable Stfefany Damian Unavailable Unavailable Valorie Fernandez RIM ROLLER SETTER.CHRISTMAS TREE FARM MANAGER Unavailable + Anna Rasmussen RN Unavailable Unavail able Active Problems ProblemNoted DateDiagnosed BhscAaafacmwpcjhc94/02/2024Mixed hyperlipidemia 10/26/2023 Assessment & Plan (10/26/2023 2:40 PM EDT): Assessment: Controlled with statin. Monitored per PCP. Chronic pain fntymkbj63/21/2024 Assessment & Plan (10/26/2023 2:56 PM EDT): Assessment: Managed with hydrocodone, takes 1-2 per day. Setxqtzbgpe05/21/2024 Assessment & Plan (10/26/2023 2:59 PM EDT): Assessment: On metformin History of tyisfahpot54/21/2024 Assessment & Plan (10/26/2023 3:11 PM EDT): Assessment: CSF leak Malignant neoplasm of upper lobe of left lung10/23/2023 Cancer Staging: Clinical stage from 10/21/2023:Stage IIB(cT3, cN0, cM0) - Unsigned Chronic obstructive pulmonary ogjfwtc9410/20/2023 Assessment & Plan (10/26/2023 2:34 PM EDT): [...] Benign prostatic hyperplasia with lower urinary tract pqzpostf20/11/2023 Overview (10/26/2023): Last Assessment & Plan: Occasional symptoms but tolerable and continue terazosin. Right internal carotid iaboazjuu80/12/2022PAD (peripheral artery disease) 05/04/2021 Overview (10/26/2023): Last Assessment & Plan: Symptoms stable and follow up with vascular. Assessment & Plan (10/26/2023 2:54 PM EDT): Assessment: Known blockage - on baby ASA - following with vascular surgery Hypothyroidism, postradioiodine kcakdnj7804/29/2016 Overview (10/26/2023): Last Assessment & Plan: Medication adjusted and repeat labs next month. Assessment & Plan (10/26/2023 2:35 PM EDT): Assessment: Stable on Levothyroxine (Synthroid) Cigarette vuetdf8104/14/2016 Assessment & Plan (10/26/2023 2:35 PM EDT): Assessment: Recently quit - 4 weeks ago (09/2023) using nicotine patches Other affections of shoulder region, not elsewhere xjnfoqqryi00/08/2013 Mkekyutraarf44/12/2012 Overview (02/16/2012): At knees Hx of fusion of cervical spine02/16/2012Essential gnsldbqyujqc06/19/2011 Overview (10/26/2023): Last Assessment & Plan: BP [...]
--- OUTSIDE RECORDS SUMMARY | 2025-01-17 14:12 | XMS_ITS | Clinical Summary ---
Author Organization [employer] tem Address [id number] [place] [address] Care Team Providers Care Pulverizer Operator Name Role Phone Dick Boss MD Primary Care Provider [phone] Allergies Active AllergyReactionsCriticalityNoted DateCommentsSulfa (Sulfonamide Antibiotics)07/17/2018 Medications [...] tablet 5Active Active Problems ProblemNoted DateDiagnosed DateMixed kgcrywdqcrqshm70/30/2024Malignant neoplasm of upper lobe of left lung12/09/2024Chemotherapy-induced vfasmozjjg09/24/2024 Chronic obstructive pulmonary rowbiqf1710/20/2023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10/12/2023 Overview (04/18/2024): Last Assessment & Plan: Pathology showed cancer and follow up with oncology as scheduled. Left-sided gzipezgi21/23/2024enign prostatic hyperplasia with lower urinary tract /11/2023 Overview (04/18/2024): Last Assessment & Plan: Occasional symptoms but tolerable and continue terazosin. Hdgwswqmnwnj30/28/2022Occlusive disease, idmdacow32/28/2022AD (peripheral artery disease)05/04/2021 Overview (04/18/2024): Last Assessment & Plan: Symptoms stable and follow up with vascular. Bilateral carotid artery eixfmrod49/23/2021Temporal ewqeqfafzbctr66/16/2019 Zjiruzuojvdqyw30/13/2019Postviral fatigue njxcopqb71/13/2019Essential crovbzsatyyb16/13/2019Infectious colitis, enteritis and gastroenteritis 07/17/2018Hypothyroidism, postradioiodine gpqdcya4404/29/2016 Overview (04/18/2024): Last Assessment & Plan: Medication adjusted and repeat labs next month. Other affections of shoulder region, not elsewhere cgtyfluxmv40/08/2013 Kjrwxffqsivf84/12/2012 Overview (10/18/2019): At knees Hx of fusion of cervical spine02/16/2012 Resolved Problems ProblemNoted DateDiagnosed DateResolved DateLung massight internal carotid oipwnpavg93Essential eptvlaudbybb29/19/2011 03/05/20245608Cfebeehsjndbsx68/19/201112/30/2024 Family History Medical HistoryRelationNameCommentsHeart diseaseFatherHypertensionFatherStroke MotherRelationNameStatusCommentsFatherDeceasedMotherDeceased Social History Tobacco UseTypesPacks/DayYears UsedDateSmoking Tobacco: FormerCigarettes0.850.6 1973 - 09/29/2023Smokeless Tobacco: Never Tobacco Cessation:Counseling Given: Not Answered Alcohol UseStandard Drinks/WeekCommentsYes0 (1 standard drink = 0.6 oz pure alcohol)moderateAHC UtilitiesAnswerDate RecordedIn the past 12 months has the electric, gas, oil, or water company threatened to shut off services in your [...] as a part of a household?No09/27/2023hildcareAnswer Date NeyijfstAiqpqoyilKbjzdtn74/12/2019EmploymentAnswerDate RecordedEmployment Gqrpzyw2008/16/2018Hunger ScreeningAnswerDate RecordedWithin the past 12 months we worried whether our food would run out before we got money to buy more.Never True09/26/2024Within the past 12 months the food we bought just didn't last and we didn't have money to get more.Never True09/26/2024Purpose - LifeAnswerDate RecordedPurpose and direction in kiudYexhiks81/11/2021ex and Gender Information ValueDate RecordedSex Assigned at BirthNot on fileLegal XjaWpst8010/10/2014 11:24 AM EDTGender IdentityNot on fileSexual OrientationNot on file Last Filed Vital Signs Vital SignReadingTime TakenCommentsBlood Ebqirqao218/6807 1:36 PM EDT Vfcxq4830 1:36 PM MKTVbrrvqpyoty08.8 ??C (98.2 ??F)07/31/2024 4:02 PM EDTRespiratory Qfqy082007/31/2024 4:45 PM EDTOxygen Pdcfgshrxy27%09/26/2024 1:36 PM EDTInhaled Oxygen Concentration--Mjyxpz78.8 kg (176 lb)09/26/2024 1:36 PM EDT Tzyrow181.6 cm (5' 6 )09/26/2024 1:36 PM EDTBody Mass Index28.41009/26/2024 1:36 PM EDT Plan of Treatment DateTypeDepartmentCare Team (Latest Contact Info)Sjzueevmsek98/04/2025 8:30 AM ESTAppointment [facility] [address] [place] [address] Bina Resendiz, DO [address] [place] [address] 02/11/2025 9:30 AM ESTOffice Visit [facility] [address] [place] [address] Bina Resendiz, DO [address] [place] [address] Health MaintenanceDue DateLast DoneCommentsStatin Use: Rislmvxmwqebdt71/29/1956 Depression Zjblczbqd85/29/1968Adult BMI Follow Up Plan12/03/1973DTaP,Tdap and Td Vaccines (1 - Tdap)12/03/1974RSV ( or age 60+ yrs) (1 - Risk 60-74 years 1-dose series)2015Abdominal Aortic Aneurysm (AAA) Sqnokz7512/03/2020Fall Risk Cyuqofnbt71/29/2021OVID-19 Vaccine ( season)2024 02/18/2021, 06/02/2020, 05/02/2020Influenza Whwyzns6911/05/2024dult BMI Screening Tobacco Olnpkeesu25Zoster (Shingles) JhggmhiOetvrfibc36/16/2019, 07/02/2018 Goals GoalPatient Goal TypeAssociated ProblemsRecent ProgressPatient-Stated?Author Home GeneralYesEvans, Faith, LOAN REVIEW OFFICER Note: Evaluation of progress towards goal: In [...]
--- OUTSIDE RECORDS SUMMARY | 2025-01-17 14:12 | XMS_ITS | Encounter Summary ---
Author Organization [facility] Address [address] [place] [address] Care Team Providers Care Electric Motor Fitter Name Role Phone Dick Boss MD Primary Care Provider [phone] Montse Duran RN Unavailable [phone] Nakia Aggarwal DO Unavailable Dick Boss MD Unavailable Encounter Details DateTypeDepartmentCare Team (Latest Contact Info)Cekrmtzbxbi30/20/2024Clinisync Result Encounter [facility] External Department Unsolicited Provider, [...] relatives?Once a week04/19/2023How often do you attend restoration or restoration services?More than 4 times per year04/19/2023o you belong to any clubs or organizations such as restoration groups, unions, [employer] or athletic [employer] ups, or school groups?Patient /13/2024How often do you attend meetings of the clubs or organizations you belong to?Patient mxorqzdr38/13/2024re you , , , , never , or living with a partner? Czopzji1304/19/2023UDIT-CAnswerDate RecordedQ1: How often do you have a [...] hard at all04/19/2023HQ-2AnswerDate RecordedPatient Health Questionnaire-2 Score0 04/18/2024[facility] [place] of Occupational Health - Occupational Stress QuestionnaireAnswerDate RecordedDo you feel stress - tense, restless, nervous, or anxious, or unable to sleep at night because yourmind is troubled all the time - these days?Patient pzfscjay25/13/2024Exercise Vital SignAnswerDate RecordedOn average, how many days [...] steady place to sleep or slept in [facility] (including now)?No 04/19/2023Sex and Gender InformationValueDate RecordedSex Assigned at BirthNot on fileLegal AyxCzni7505/19/2022 7:20 PM EDTGender IdentityNot on fileSexual OrientationNot on filedocumented as of this encounter Functional Status * Over the past 2 weeks, how often have you been bothered by any of the following problems?QuestionAnswerDate of AssessmentAuthorLittle interest or pleasure in doing thingsNot at all04/18/2024 10:00 AM Gina Osuna MA Feeling down, depressed, or hopelessNot at all04/18/2024 10:00 AM Gina Osuna MAPatient Health Questionnaire-2 Citxb642 10:00 AM Gina Osuna MA * QuestionAnswerDate [...] 10:00 AM Gina Osuna MAPatient Health Questionnaire-9 Ohtqy36604/18/2024 10:00 AM Gina Osuna MA documented as of this encounter Plan of Treatment DateTypeDepartmentCare Team (Latest Contact Info)Iugritwpmgf06/21/2026 3:15 PM EDTOffice Visit [facility] [address] [place] [phone] Ada Claudio MD [address] [place] [address] documented as of this encounter Procedures Procedure NamePriorityDate/TimeAssociated DiagnosisCommentsCT CHEST W IV NKQTILHA42/20/2024 10:16 AM EST documented in this encounter [...] was performed concurrently and is dictated separately. Newspaper Photographer (topogram) images: Unremarkable. IMPRESSION: Decreased size of [...] any questions regarding this interpretation, please call [phone]. If you are unable to reach us at the number above, please feel free to contact [facility] at [phone]. [id number]^AGFA_IDC^SI^ACN Procedure Note Radiology, Radiologist, - 01/25/2024 * * *Final Report* * * DATE OF EXAM: Jan 25 2024 10:16AM [facility] 0539 - CT CHEST W IVCON / [...] was performed concurrently and is dictated separately. Newspaper Photographer (topogram) images: Unremarkable. IMPRESSION: Decreased size of [...] any questions regarding this interpretation, please call [phone]. If you are unable to reach us at the number above, please feel free to contact [facility] at [phone]. [id number]^AGFA_IDC^SI^ACN Authorizing ProviderResult TypeResult StatusGeneric External Data ProviderIMG CT PROCEDURESFinal Result documented in this encounter Visit Diagnoses Not on filedocumented in this encounter Additional Health Concerns AssessmentNoted TimeA fall risk assessment has been completed for the patient 08/11/2023 12:48 PM EDTdocumented as of this encounter Care Teams Team MemberRelationshipSpecialtyStart DateEnd Date Dick Boss MD PCP - GeneralFamily Medicine04/20/23 Nakia Aggarwal DO [address] [facility] [address] [place] [phone] PCP - Treasure CLARK/ Dick Boss MD [address] [place] [address] PCP - Treasure CLARK/ Montse Duran, EWELINA [address] [place] [address] Registered NurseFamily Medicinedocumented as of this encounter
--- OUTSIDE RECORDS SUMMARY | 2025-01-17 14:12 | XMS_ITS | Clinical Summary ---
Author Organization [facility] Address [address] [place] [address] Care Team Providers Care Records Specialist Name Role Phone Dick Boss MD Primary Care Provider [phone] Allergies Active AllergyReactionsCriticalityNoted QyrgZswkohrgUilntzwgxpOmpnx25/24/2024 Tiotropium BromideShortness of qypmhzSkax77/20/2024 Pt reported having increased shortness of breath after trying med 1 time. Sulfa AntibioticsUnknown,IrrgFjcv05/10/2012 Unkown, was a child Medications MedicationSigDispense QuantityRefillsLast FilledStart DateEnd DateStatus propranolol (Inderal) 20 MG tablet TAKE 1 TABLET BY MOUTH NEEDED FOR ANXIETY ATTACKS ONCE A DAY12/25/2021ctive ascorbic acid (Vitamin C) 500 MG tablet Take 500 mg by mouth in the morning.Active aspirin 81 MG EC tablet Take 81 mg by mouth in the morning.Active Krill Oil (Enochs-3) 500 MG capsule Take by mouth.Active Multiple Vitamin (Multi-Vitamin) tablet Take 1 tablet by mouth in the morning.Active sildenafil (Viagra) 100 MG tablet Indications:Erectile dysfunction, unspecified erectile dysfunction typeTake 1 tablet (100 mg) by mouth Daily as needed for erectile dysfunction. 10 tablet ctive albuterol HFA 90 mcg/act inhaler Inhale 2 puffs every 6 (six) hours if paszjv2610/20/2023ctive omeprazole OTC (PriLOSEC OTC) 20 MG EC [...] capsule 5Active Active Problems ProblemNoted DateDiagnosed DateSeborrheic zfvpdnabsn21/12/2025Medicare annual wellness visit, vwwebxxqzr46/12/2025 Assessment & Plan (04/18/2024 10:42 AM EST): Reviewed labs. Discussed proper diet and regular aerobic exercise. Need aerobic exercise 5-6 days aweek for 30 minutes at a time. Smaller portions and limit total calories. Colonoscopy every 10 years. Tetanus every 10 years. Advised not to smoke. Encounter for long-term (current) use of jeqcrrywjsd63/12/2024hemotherapy- induced wegvhlxatu54/24/2024 Assessment & Plan (10/17/2024 11:09 AM EDT): Symptoms resolved and monitor. Assessment & Plan (01/17/2024 11:03 AM EST): Continued pain and try lyrica. Use norco PRN. Assessment & Plan (12/29/2023 2:25 PM EDT): Worsening pain and discussed options. Suggested trial of lyrica but patient declined. Chronic obstructive pulmonary uuclnju9810/20/2023 Assessment & Plan (10/17/2024 11:09 AM EDT): [...] EDT): Worsening anxiety and use valium PRN. Uxbmhowc72/07/2024 Assessment & Plan (10/12/2023 12:32 PM EDT): [...] follow up with oncology as scheduled. Primary iglwxftb43/29/2024 Assessment & Plan (10/17/2024 11:10 AM EDT): Not sleeping well and try doxepin. Assessment & Plan (12/29/2023 2:26 PM EDT): Sleeping well with trazodone and continue. Left-sided snqhyvlm46/23/2024DD (degenerative disc disease), bmdcpotg40/14/2024 Assessment & Plan (04/20/2023 12:12 PM EST): Pain stable and use norco PRN. Increase activity and walk regularly. Benign prostatic hyperplasia with lower urinary tract truawswr83/11/2023 Assessment & Plan (04/20/2023 12:12 PM EST): Occasional symptoms but tolerable and continue terazosin. H/O malignant neoplasm of skin12/15/2022egenerative lumbar spinal stenosis 12/15/2022 Assessment & Plan (04/20/2023 12:12 PM EST): Pain stable and use norco PRN. Increase activity and walk regularly. 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 Increase ambulation. Assessment & Plan (12/29/2023 2:26 PM EDT): Worsening claudication and contact oncology about resuming plavix. Increase ambulation. Assessment & Plan (04/20/2023 12:13 PM EST): Symptoms stable and follow up with vascular. Gbzkhrcsctb20/19/2021ilateral carotid artery adabjrdf90/23/2021Family history of lung eovzsz1608/01/2019Erectile wyqodaoerhw76/01/2019Rotator cuff arthropathy of right avzobmxv75/01/2019Postviral fatigue apkbvltv99/13/2019Headache disorder 05/25/2018Mixed xgdcheimvxeeor58/31/2017Low dqqoyxvegycv73/31/2017Seasonal allergic rhinitis due to veahzb6604/29/20169485Ogzddvmu70/23/2017Chronic fatigue /23/2017History of gastrointestinal ttwkhsd7904/29/2016Hypothyroidism, postradioiodine wetfrnt2604/29/2016 Assessment & Plan (04/20/2023 12:13 PM EST): Medication adjusted and repeat labs next month. Impingement syndrome of left shoulder xzzcoc7504/29/2016Mixed conductive and sensorineural hearing loss04/29/2016Myringotomy tube qwdfps4004/29/2016 Trochanteric bursitis of right hip04/29/2016 Assessment & Plan (10/17/2024 11:10 AM EDT): Pain unchanged follow with ortho. Assessment & Plan (07/25/2023 10:49 AM EDT): Pain unchanged and refer to ortho for possible injection. Finish prednisone. Use ice PRN. Handout with ROM exercises to patient. Hx of fusion of cervical spine02/16/2012Essential glnxnjkznzuh58/19/2011 Assessment & Plan (10/17/2024 11:09 AM EDT): BP controlled and monitor PRN. Assessment & Plan (01/17/2024 11:03 AM EST): BP controlled and monitor PRN. Assessment & Plan (04/20/2023 12:13 PM EST): BP controlled and monitor PRN. Resolved Problems ProblemNoted DateDiagnosed DateResolved DateAcute bronchitis due to other specified hwvhhhatd79/09/2023 Assessment & Plan (05/02/2023 11:30 AM EST): [...] re-evaluation. H/O TIA (transient ischemic attack) and invewh54Inflammation of joint of left shoulder dbczqc69Not currently working due to disabled pvlpyy02Other specified postprocedural states Lower urinary tract symptoms due to benign prostatic qfhtsaghbsg36Hyperglycemiaifficulty ynopjejc32ight internal carotid nozctbjrf94 Skin sensation dxxxwvxauyw34isorder of xysrkfz9406/13/2020 04/20/2023Lumbago with sciatica, unspecified sideifficulty umtcvxa45isplacement of lumbar intervertebral disc without mjzmyriviv14Intervertebral disc disorder of lumbar region with syuvjrceis88onstipation/01/2024Otorrhea of left eardult BMI 30.0-30.9 kg/sq m0Temporal tscnvnfisuaud44Infectious colitis, enteritis and rpduibqlgwsctos29Tinnitus of left ear Family history of prostate ltiqax55taxia Ywxmpntfleo88External skvoyizkxix53History of stroke without residual ofndnidz01Unemployed04/29/2016 04/20/2023Impairment of ejowone53hronic pain syndrome igarette kavfvu25Hyporeflexia02/16/2012 04/20/2023 [facility]09[facility]13[facility]2022[facility] Jiwqwplqckqltj27 Encounters DateTypeDepartmentCare PtauOvsscdugeig93/16/2025 10:00 AM EDTAncillary Procedure [facility] [address] [place] [address] Trochanteric bursitis, right hip11/20/20247956Cbkfhw08/22/2025linisync Result Encounter [facility] External Department Unsolicited Provider, Generic External Data 10/24/2024 1:30 PM EDTTreatment [facility] [address] [place] [address] Malik Parker PTA Trochanteric bursitis of right hip (Primary Dx)10/24/2024amboo flowsheet [facility] [address] [place] [address] Malik Parker PTA 10/24/20240873Wsyhse81/13/2025 1:30 PM EDTTreatment [facility] [address] [place] [address] Ayesha Mayes, NEERAJ Trochanteric bursitis of right hip (Primary Dx)10/17/2024 10:00 AM EDTOffice Visit [facility] [address] [place] [address] Dick Boss MD Essential hypertension (Primary Dx); Chronic obstructive pulmonary disease, unspecified COPD type (HCC); Chemotherapy-induced neuropathy (HCC); 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); Primary insomnia; Trochanteric bursitis of right hip10/17/2024amboo flowsheet [facility] [address] [place] [address] Dick Boss MD 10/17/2024Travelfrom Last 3 Months Immunizations ImmunizationAdministration DatesNext DuePneumococcal Conjugate PCV 13008/04/2016 Pneumococcal Polysaccharide USOM9074,12/16/2014Zoster, Recombinant 11/20/2018,07/02/2018 Family History Medical HistoryRelationNameCommentsHeart diseaseFatherHypertensionFatherProstate [...] relatives?Once a week04/19/2023How often do you attend samaritan or pentecostal services?More than 4 times per year04/19/2023o you belong to any clubs or organizations such as [employer]aritan groups, unions, fraternal or athletic elizabeth ups, or school groups?Patient /13/2024How often do you attend meetings of the clubs or organizations you belong to?Patient abnurstx70/13/2024re you , , , , never , or living with a partner? Xgodvhx5304/19/2023UDIT-CAnswerDate RecordedQ1: How often do you have a [...] hard at all04/19/2023HQ-2AnswerDate RecordedPatient Health Questionnaire-2 Score0 04/18/2024[facility] [place] [facility] - Occupational Stress QuestionnaireAnswerDate RecordedDo you feel stress - tense, restless, nervous, or anxious, or unable to sleep at night because yourmind is troubled all the time - these days?Patient gwoisiai04/13/2024Exercise Vital SignAnswerDate RecordedOn average, how many days [...] steady place to sleep or [facility] ([facility])?No 04/19/2023Sex and Gender InformationValueDate RecordedSex Assigned at BirthNot on fileLegal YcgNlov8405/19/2022 7:20 PM EDTGender IdentityNot on fileSexual OrientationNot on file Last Filed Vital Signs Vital SignReadingTime TakenCommentsBlood Hmwtseex720/68010/17/2024 10:30 AM EDT Zpqti174110/17/2024 10:30 AM TCVQrgjfyapabd44.6 ??C (97.8 ??F)10/17/2024 10:30 AM EDTRespiratory Uruy478210/17/2024 10:30 AM EDTOxygen Jpesspdonb52%10/17/2024 10:30 AM EDTInhaled Oxygen Concentration--Qxtaop89.3 kg (177 lb)10/17/2024 10:30 AM DWYWcgabp930.6 cm (5' 6 )10/17/2024 10:30 AM EDTBody Mass Index28.57010/17/2024 10:30 AM EDT Plan of Treatment DateTypeDepartmentCare Team (Latest Contact Info)Gkbrmevpded49/21/2026 3:15 PM EDTOffice Visit [facility] [address] [place] [address] Ada Claudio MD [address] [place] [address] Health MaintenanceDue DateLast DoneCommentsCT Bzyaiqcbmonw17/29/1956FIT-DNA 1955FIT1955FOBT1955 9268Ptoikzvmztjkg84/29/1956OVID-19 Vaccine ( season), 06/02/2020, 05/02/2020Influenza Vaccine (#1)11/05/20240178Jxagbcqqgfg63Colorectal Cancer Screening 10/02/2025Pneumococcal Vaccine: 65+ GhafeQvlxuxcsx69/11/2023, 08/04/2016, 12/16/2014 Procedures Procedure NamePriorityDate/TimeAssociated DiagnosisCommentsMR HIP RIGHT WO IV ZCUOVWVPEtpbmum80/16/2025 11:24 AM EDT Trochanteric bursitis, right hip XR CHEST 2V FRONTAL/LAT10/26/2024 8:51 AM EDT PGNANNFYGMXNwizixy46/29/2016 12:00 PM EDT from Last 3 Months [...] No joint effusion. LEFT HIP JOINT: Large mtaxd-fq-buwk with degenerative changes. ? SI JOINTS: Unremarkable. [...] No joint effusion. LEFT HIP JOINT: Large vcwmy-bi-rdem with degenerative changes. SI JOINTS: Unremarkable. PUBIC [...] BY: Clifton Garcia MD Authorizing ProviderResult TypeResult StatusRobert Floresita LAGUNASIMJosh MRI PROCEDURES Final Result * XR CHEST [...] any questions regarding this interpretation, please call [phone]. If you are unable to reach us at the number above, please feel free to contact [facility] at [phone]. [id number]^AGFA_IDC^SI^ACN Procedure Note Radiology, Radiologist, - 10/26/2024 * [...] any questions regarding this interpretation, please call [phone]. If you are unable to reach us at the number above, please feel free to contact [facility] at [phone]. [id number]^AGFA_IDC^SI^ACN Authorizing ProviderResult TypeResult StatusGeneric External Data Provider CLINISYNC IMAGINGFinal Result * Colonoscopy (10/03/2015 12:00 PM EDT)Anatomical RegionLateralityModality EndoscopySpecimen (Source)Anatomical Location / LateralityCollection Method / VolumeCollection TimeReceived Time10/03/2015 12:00 PM EDT Narrative 10/03/2015 12:00 PM EDT PERFORMED AT [facility] LOCATION:[id number] Abnormal Procedure Note CONVERSION, GENERIC - 07/22/2022 PERFORMED AT [facility] LOCATION:[id number] Abnormal Authorizing ProviderResult TypeResult StatusJonathan F DillerENDOSCOPY PROCEDURE ORDERABLESFinal Result from Last 3 Months or Most Recently Relevant to Health Maintenance Insurance Advance Directives TypeDate RecordedPatient RepresentativeExplanationAdvance Directives and Living Will living will-healthcare POA Care Teams Team MemberRelationshipSpecialtyStart DateEnd Date Dick Boss MD PCP - GeneralFamily Medicine04/20/23
--- OUTSIDE RECORDS SUMMARY | 2025-01-17 14:12 | XMS_ITS | Clinical Summary ---
Author Organization [facility] Address [address] [place] [address] Care Team Providers Care Dispatcher [place] Name Role Phone Dick Boss MD Primary Care Provider Preston Lucio MD Unavailable [phone] Gerald Dumont MD Unavailable Kathy Ruiz MD Unavailable [phone] Preston Lucio MD Unavailable Michelle Galvez EQUITY STRUCTURER.PATROL COMMUNITY SERVICE OFFICER Unavailable [phone] Noemy Chicas RN Unavailable Steffany Damian Unavailable Unavailable Valorie Fernandez EQUITY STRUCTURER.PATROL COMMUNITY SERVICE OFFICER Unavailable + Anna Rasmussen RN Unavailable Unavail able Allergies Active AllergyReactionsCriticalityNoted DateCommentsGabapentinIntolerance 02/08/2024 Causes Altered mental Status Sulfa (Sulfonamide Antibiotics)AckldykKkid58/10/2012 Unkown, was a child Medications MedicationSigDispense QuantityRefillsLast [...] 5 mg tablet Take 5 mg by mouth.06/05/2024tive predniSONE (DELTASONE) 10 mg tablet Indications:Radiation-induced pulmonary fibrosis (HCC),Malignant neoplasm of unspecified part of unspecified bronchus or lung (HCC),NeuralgiaTAKE 1 TABLET BY MOUTH EVERY DAY 30 tablet 5Active predniSONE (DELTASONE) 10 mg tablet Indications:Radiation-induced pulmonary fibrosis (HCC),Malignant neoplasm of unspecified part of unspecified bronchus or lung (HCC),NeuralgiaTake 1 tablet by mouth once daily. 30 tablet Discontinued Active Problems ProblemNoted DateDiagnosed SnbzUoncafbyoackd56/02/2024Mixed hyperlipidemia 10/26/2023 Assessment & Plan (10/26/2023 2:40 PM EDT): Assessment: Controlled with statin. Monitored per PCP. Chronic pain edzuxxkg26/21/2024 Assessment & Plan (10/26/2023 2:56 PM EDT): Assessment: Managed with hydrocodone, takes 1-2 per day. Gelcbphpspm93/21/2024 Assessment & Plan (10/26/2023 2:59 PM EDT): Assessment: On metformin History of mkmtzskehp76/21/2024 Assessment & Plan (10/26/2023 3:11 PM EDT): Assessment: CSF leak Malignant neoplasm of upper lobe of left lung10/23/2023 Cancer Staging: Clinical stage from 10/21/2023:Stage IIB(cT3, cN0, cM0) - Unsigned Chronic obstructive pulmonary nzyvgby0510/20/2023 Assessment & Plan (10/26/2023 2:34 PM EDT): [...] Benign prostatic hyperplasia with lower urinary tract sarfbbdh39/11/2023 Overview (10/26/2023): Last Assessment & Plan: Occasional symptoms but tolerable and continue terazosin. Right internal carotid ikvznqqoe70/12/2022AD (peripheral artery disease) 05/04/2021 Overview (10/26/2023): Last Assessment & Plan: Symptoms stable and follow up with vascular. Assessment & Plan (10/26/2023 2:54 PM EDT): Assessment: Known blockage - on baby ASA - following with vascular surgery Hypothyroidism, postradioiodine rbmzdfy7804/29/2016 Overview (10/26/2023): Last Assessment & Plan: Medication adjusted and repeat labs next month. Assessment & Plan (10/26/2023 2:35 PM EDT): Assessment: Stable on Levothyroxine (Synthroid) Cigarette kvttsv6104/14/2016 Assessment & Plan (10/26/2023 2:35 PM EDT): Assessment: Recently quit - 4 weeks ago (09/2023) using nicotine patches Other affections of shoulder region, not elsewhere yxqtdmvteb62/08/2013 Dzvzuqxovhdv42/12/2012 Overview (02/16/2012): At knees Hx of fusion of cervical spine02/16/2012Essential xzlpfkbhmaeo49/19/2011 Overview (10/26/2023): Last Assessment & Plan: BP controlled and monitor PRN. Assessment & Plan (10/26/2023 2:40 PM EDT): Assessment: Stable and compliant with medications Followed by PCP Last 5 Encounter BP Readings: Date: BP: 10/26/2023 136/74 10/21/2023 136/72 02/16/2012 147/76 10/15/2011 144/80 Encounters DateTypeDepartmentCare XegvDdeotezpaqw81/09/2025Refill Hematology/Oncology [address] [place] [address] [place] [address] Tianna King PA-C Refill Catinif6912/17/2024Telephone Hematology/Oncology [address] [place] [address] [place] [address] Noemy Chicas, RN Care Coordination (Lung Pain)12/07/2024 2:00 PM EDTVisit (SP) Office Hematology/Oncology [address] [place] [address] [place] [address] Elizabeth Givens APRN.PATROL COMMUNITY SERVICE OFFICER Malignant neoplasm of unspecified part of unspecified bronchus or lung (HCC) (Primary Dx); Radiation-induced pulmonary fibrosis (HCC); Radiation induced neuropathy (HCC); Malaise and fatigue; Malignant neoplasm of lower lobe, left bronchus or lung (HCC); skilled nursing (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; Hyperglycemia; Kixuejeuflz38/26/2025 8:30 AM EDTOffice Visit Palliative Medicine [address] [place] [address] [place] [address] Valorie Fernandez APRN.PATROL COMMUNITY SERVICE OFFICER Palliative care by specialist (Primary Dx); Radiation-induced pulmonary fibrosis (HCC); Malignant neoplasm of unspecified part of unspecified bronchus or lung (HCC); Neuralgia; Neuropathy due to chemotherapeutic drug (HCC); 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 condition; skilled nursing (current) use of systemic fzoxisfy01/26/9517Qtoyrv56/19/2025 1:30 PM EDTVisit (SP) Office Hematology/Oncology [address] [place] [address] [place] [address] Elizabeth Givens APRN.PATROL COMMUNITY SERVICE OFFICER Radiation-induced pulmonary fibrosis (HCC) (Primary Dx); Malignant neoplasm of unspecified part of unspecified bronchus or lung (HCC); Pleural effusion, not elsewhere classified; Shortness of breath; Malaise and fatigue; Radiation induced neuropathy (HCC); leather heel breaster (current) use of systemic guhqslqx33/19/3099Cxqkxc45/12/2025 11:00 AM EDTOffice Visit Radiation Oncology [address] [place] [address] [place] [address] Jack Kc MD Malignant neoplasm of upper lobe of left lung (HCC) (Primary Dx)11/09/2024 11:45 AM EDTVisit (SP) Office Hematology/Oncology [address] [place] [address] [place] [address] Preston Lucio MD Radiation-induced pulmonary fibrosis (HCC) (Primary Dx); Malignant neoplasm of unspecified part of unspecified bronchus or lung (HCC); Neuralgia; Pleural effusion, not elsewhere classified; Herpes zoster without complications; Encounter for follow-up examination after completed treatment for malignant neoplasm; skilled nursing (current) use of systemic /05/2025 9:55 AM EDT - 11/09/2024 11:59 PM EDTHospital Encounter Radiology Pet CT [address] [place] [address] Malignant neoplasm of unspecified part of unspecified bronchus or lung (HCC) [C34.90] Discharge Disposition: Home11/09/2024Telephone Cancer Appts [address] [place] [address] Preston Lucio MD Dbvodco4511/09/20248401Uwtzok93/02/2025Telephone Hematology/Oncology [address] [place] [address] [place] [address] Noemy Chicas, RN Care Coordination (Lung Pain)10/30/2024Telephone Hematology/Oncology [address] [place] [address] [place] [address] Noemy Chicas, RN Care Coordination (Discharge Follow Up Call )10/29/2024H&P External-NonCCF Provider, External, PA-C 10/29/2024Telephone Hematology/Oncology [address] [place] [address] [place] [address] Noemy Chicas, RN Care Coordination (Hospital Admission)10/26/2024 8:00 AM EDT - 10/26/2024 11:59 PM EDTHospital Encounter Radiology [address] [place] [address] Radiation-induced pulmonary fibrosis (HCC) [J70.1] Discharge Disposition: Home10/25/2024Telephone Hematology/Oncology [address] [place] [address] Noemy Chicas, EWELINA Care Coordination (Lung Pain)from Last 3 Months [...] drink = 0.6 oz pure alcohol)PHQ-2AnswerDate RecordedPHQ-2 gakpy6925Area Deprivation Index AnswerDate RecordedNational Score (1-100), lower number is lower risk75 10/21/2023State Score (1-10), lower number is lower slse2774Data from: https://www.neighborhoodatlas.medicine.[facility].edu/. Last address used for [address] [place] [address]10/21/2023Sex and Gender InformationValueDate RecordedSex Assigned at BirthNot on fileLegal FmxHrtg26/02/2012 10:16 AM EST Gender IdentityNot on fileSexual OrientationNot on file Last Filed Vital Signs Vital SignReadingTime TakenCommentsBlood Tcesekop369/7412/07/2024 2:07 PM EDT Hmzxs314812/07/2024 2:07 PM HREMkucerrjeix84.5 ??C (97.7 ??F)12/07/2024 2:07 PM EDTRespiratory Gxre4159 2:07 PM EDTOxygen Jgjubwyfaz65%12/07/2024 2:07 PM EDTInhaled Oxygen Concentration--Oloclg63 kg (191 lb 12.8 oz)12/07/2024 2:07 PM CJTBrmdjr613.5 cm (5' 5.55 )12/07/2024 2:07 PM EDTBody Mass Index31.38 12/07/2024 2:07 PM EDT Plan of Treatment DateTypeDepartmentCare Team (Latest Contact Info)Qoisdskhtpx94/29/2025 8:00 AM ESTAppointment Radiology Pet CT [address] [place] [address] PET03/11/2025 2:00 PM ESTVisit (SP) Office Hematology/Oncology [address] [place] [address] Preston Lucio MD [address] [place] [address] FOLLOW UP AFTER PET SCANHealth MaintenanceDue DateLast DoneCommentsAnnual PCP Team Chronic Disease Visit12/03/1973Depression Zswhwnoxx95/29/1974Hepatitis C Bxidrtbfz42/29/1974DTaP,Tdap,Td Vaccine (1 - Tdap)12/03/1974CT Colonography 12/03/2000Cologuard (FIT-DNA)12/03/2000Fecal Occult Blood12/03/2000Sigmoidoscopy 12/03/2000RSV Vaccine (1 - Risk 60-74 years 1-dose series)2015Colonoscopy Colorectal Cancer Kzvrqaknf97/29/2017Advance Directive Iqjjbycvnd72/01/2025Medicare Advantage Annual Wellness Visit03/07/2024ovid-19 Vaccine ( season)512/, 06/02/2020, 05/02/2020 Influenza Vaccine (#1)2024Diabetes Ocpjhswgw57, 11/23/2024, 11/09/2024, Additional history existsLipid Gqfncpuau22/24/2029 09/28/2023Shingrix OdtstczEdsrjdcdj72/16/2019, 07/02/2018Pneumococcal Vaccine: 50+Htrivwwfz31/11/2023, 08/04/2016, 12/16/2014bdominal Aortic Aneurysm NcsrfrsieRblrvukhh25/23/2024 Procedures Procedure NamePriorityDate/TimeAssociated DiagnosisCommentsTSH BLDRoutine 12/07/2024 1:40 PM EDT Malignant neoplasm of upper lobe of left lung (HCC) Abnormal blood chemistry Malaise and fatigue CORTISOL RSVNcuurca53/03/2025 1:40 PM EDT Malignant neoplasm of upper lobe of left lung (HCC) Abnormal blood chemistry Malaise and fatigue CBC + JXIGMexwruz16/03/2025 1:40 PM EDT Malignant neoplasm of upper lobe of left lung (HCC) Abnormal blood chemistry Malaise and fatigue COMPREHENSIVE METABOLIC HIIWCIbbuiwi08/03/2025 1:40 PM EDT Malignant neoplasm of upper lobe of left lung (HCC) Abnormal blood chemistry Malaise and fatigue CBC + QSGFWqdzwxw06/19/2025 3:29 PM EDT Radiation-induced pulmonary fibrosis (HCC) COMPREHENSIVE METABOLIC NXDVXQkurwnk36/19/2025 3:10 PM EDT Malignant neoplasm of upper lobe of left lung (HCC) Abnormal blood chemistry Malaise and fatigue TSH YXWLgfuezg41/19/2025 3:03 PM EDT Malignant neoplasm of upper lobe of left lung (HCC) Abnormal blood chemistry Malaise and fatigue CORTISOL WOVMooqhqc74/19/2025 3:03 PM EDT Malignant neoplasm of upper lobe of left lung (HCC) Abnormal blood chemistry Malaise and fatigue CBC + QLXZJoxglkh57/19/2025 2:33 PM EDT Malignant neoplasm of upper lobe of left lung (HCC) Abnormal blood chemistry Malaise and fatigue NM PET/CT SKULL-THIGH TODRBNOOYDYgjigmn67/05/2025 12:10 PM EDT Malignant neoplasm of unspecified part of unspecified bronchus or lung (HCC) GLUCOSE, BLOOD (POC)Scmbeuu8411/09/2024 10:03 AM EDT COMPREHENSIVE METABOLIC OMRNMBlroism22/05/2025 9:56 AM EDT Malignant neoplasm of unspecified part of unspecified bronchus or lung (HCC) CBC + AUYHZbiaqic78/05/2025 9:56 AM EDT Malignant neoplasm of unspecified part of unspecified bronchus or lung (HCC) HEMOGLOBIN K2OUciqtok24/05/2025 9:56 AM EDT Malignant neoplasm of unspecified part of unspecified bronchus or lung (HCC) Immunotherapy Abnormal blood chemistry CORTISOL MPRMdevihg30/05/2025 9:56 AM EDT Malignant neoplasm of unspecified part of unspecified bronchus or lung (HCC) Immunotherapy Malaise and fatigue Abnormal blood chemistry TSH DMVLmochog42/05/2025 9:56 AM EDT Malignant neoplasm of unspecified part of unspecified bronchus or lung (HCC) Immunotherapy Malaise and fatigue EXTERNAL UCRMAIIOMY48/26/2025 9:22 AM EDT EXTERNAL LAB10/29/2024 9:01 AM EDT EXTERNAL BABRPEP2310/29/2024 9:01 AM EDT EXTERNAL LAB10/29/2024 9:01 AM EDT EXTERNAL LAB10/29/2024 9:01 AM EDT EXTERNAL GCBKGRGTYU42/25/2025 9:[address] OUTSIDE CD DICOM TUIQZM8310/27/2024 XR CHEST 2V FRONTAL/VMDGunwhlb38/22/2025 8:52 AM EDT Radiation-induced pulmonary fibrosis (HCC) Shortness of breath from Last 3 Months Results * THYROID STIMULATING HORMONE (12/07/2024 1:40 PM EDT) Only the most recent of3 resultswithin the time period is included. ComponentValueRef RangeTest MethodAnalysis TimePerformed AtPathologist Signature TSH0.8210.270 - 4.200 mIU/L1 6:21 AM [facility] LABSpecimen (Source)Anatomical Location / LateralityCollection Method / Volume Collection TimeReceived TimeBloodBLOOD SPECIMEN / UnknownVenipuncture / Unknown 12/07/2024 1:40 PM EDT1 1:41 PM EDT Narrative Authorizing ProviderResult TypeResult StatusVivek Khadijah MDLABORATORYFinal ResultPerforming OrganizationAddressCity/State/ZIP CodePhone Number [facility] [address] [facility] [address] * (ABNORMAL) CORTISOL, SERUM (12/07/2024 1:40 PM EDT) Only the most recent of3 resultswithin the time period is included. ComponentValueRef RangeTest MethodAnalysis TimePerformed AtPathologist Signature Cortisol1.4(L)4.8 - 19.5 ug/dL12/08/2024 6:21 AM [facility] LABComment: Provided reference range is from 6-10 AM sample collection time. Cortisol Reference Range: 6-10 AM = 4.8-19.5 ug/dL, 4-8 PM = 2.5-11.9 ug/dL Specimen (Source)Anatomical Location / LateralityCollection Method / Volume Collection TimeReceived TimeBloodBLOOD SPECIMEN / UnknownVenipuncture / Unknown 12/07/2024 1:40 PM EDT1 1:41 PM EDT Narrative Authorizing ProviderResult TypeResult StatusPreston Lucio MDLABORATORYFinal ResultPerforming OrganizationAddressCity/State/ZIP CodePhone Number [facility] [address] [facility] [address] [place] [address], * (ABNORMAL) COMPREHENSIVE METABOLIC PANEL (12/07/2024 1:40 PM EDT) Only the most recent of3 resultswithin the time period is included. ComponentValueRef RangeTest MethodAnalysis TimePerformed AtPathologist Signature Protein, Total7.06.3 - 8.0 g/dL12/07/2024 2:28 PM EDTNORTUNIVERSITY OF MICH[facility] LABAlbumin4.73.9 - 4.9 g/dL12/07/2024 2:28 PM EDTST[facility] LABCalcium, Total9.88.5 - 10.2 mg/dL12/07/2024 2:28 PM EDT [facility] LABBilirubin, Total0.40.2 - 1.3 mg/dL 12/07/2024 2:28 PM EDTST[facility] LABAlkaline Phosphatase 6638 - 113 U/L1 2:28 PM EDTNORTUNIVERSITY OF [facility] DTDKHO5415 - 40 U/L1 2:28 PM EDTST[facility] JNJXZC8410 - 54 U/L1 2:28 PM EDTST[facility] WXESzpbuxz596(H)74 - 99 mg/dL12/07/2024 2:28 PM EDTST[facility] LABComment: The [place] Diabetes Association (ADA) provides guidance for cutoff [...] Standards of Medical Care in Diabetes 2016, [place] Diabetes Association. Diabetes Care. 2016.39(Suppl 1). LPQ829 - 24 mg/dL12/07/2024 2:28 PM [facility] Creatinine0.760.73 - 1.22 mg/dL12/07/2024 2:28 PM [facility] GRJDdkglt037046 - 144 mmol/L1 2:28 PM [facility] LABPotassium4.13.7 - 5.1 mmol/L1 2:28 PM [facility] QUUCjvwvexj18(L)98 - 107 mmol/L1 2:28 PM EDT [facility] KEZNS57958 - 30 mmol/L1 2:28 PM EDT [facility] LABAnion Ezl912 - 15 mmol/L1 2:28 PM [facility] LABEstimated Glomerular Filtration Rate97 >=60 mL/min/1.73m 12/07/2024 2:28 PM [facility] LABComment:Estimated Glomerular Filtration Rate (eGFR) is [...] VolumeCollection TimeReceived TimeBloodBLOOD SPECIMEN / UnknownVenipuncture / Lislmbp8012/07/2024 1:40 PM EDT1 1:41 PM EDT Narrative Authorizing ProviderResult TypeResult StatusPreston Lucio MDLABORATORYFinal ResultPerforming OrganizationAddressCity/State/ZIP CodePhone Number [facility] [address] [place] [address] * (ABNORMAL) COMPLETE BLOOD COUNT AND DIFFERENTIAL (12/07/2024 1:40 PM EDT) Only the most recent of4 resultswithin the time period is included. ComponentValueRef RangeTest MethodAnalysis TimePerformed AtPathologist Signature WBC8.213.70 - 11.00 k/uL12/07/2024 1:54 PM EDTNORTUNIVERSITY OF MICH[facility] LABRBC4.214.20 - 6.00 m/uL12/07/2024 1:54 PM EDTST[facility] ESXWffvnskien85.6(L)13.0 - 17.0 g/dL12/07/2024 1:54 PM EDTST[facility] NNIKdtkvjniho88.6(L)39.0 - 51.0 %12/07/2024 1:54 PM EDT [facility] EDEFRO40.380.0 - 100.0 fL12/07/2024 1:54 PM EDTST[facility] QAJIKT70.926.0 - 34.0 pg12/07/2024 1:54 PM EDTNORTUN[facility] LBSFUSV90.530.5 - 36.0 g/dL12/07/2024 1:54 PM EDTNORTUNIV[facility] LABRDW-CV16.4(H)11.5 - 15.0 %12/07/2024 1:54 PM EDTNORTUN[facility] LABPlatelet Rsyvf602047 - 400 k/uL 12/07/2024 1:54 PM EDTNORTUN[facility] LABMPV9.49.0 - 12.7 fL 12/07/2024 1:54 PM EDTNORTUN[facility] LABNeutrophils %83.0% 12/07/2024 1:54 PM EDTNORTBARN[facility]ITAL[facility] LABAbs Neut6.811.45 - 7.50 k/uL12/07/2024 1:54 PM EDTNOBRAXTON [facility] LABLymphocytes %10.2%12/07/2024 1:54 PM EDTNOBRAXTON COUNTY [facility] LABAbs Lymph0.84 (L)1.00 - 4.00 k/uL12/07/2024 1:54 PM EDTNORTBARNES-[facility]EW[facility]ITAL[facility] LAB Monocytes %3.8%12/07/2024 1:54 PM EDTNORTUN[facility] LABAbs Mono0.31<0.87 k/uL12/07/2024 1:54 PM EDTNOBRAXTON [facility] LAB Eosinophils %0.6%12/07/2024 1:54 PM EDTST[facility] LABAbs Eosin0.05<0.46 k/12/07/2024 1:54 PM EDTNORTUN[facility] LAB Basophils %0.5%12/07/2024 1:54 PM EDTNOBRAXTON COUNTY [facility] LABAbs Baso0.04<0.11 k/uL12/07/2024 1:54 PM EDTNOBRAXTON [facility] LAB Immature Granulocytes %1.9%12/07/2024 1:54 PM EDTST[facility] LABAbs Immature Gran0.16(H)<0.10 k/12/07/2024 1:54 PM EDTNORTUNIV[facility]ITY OF [facility] LABNRBC0.0/100 WBC12/07/2024 1:54 PM EDTST[facility] LABAbsolute nRBC<0.01<0.01 k/12/07/2024 1:54 PM EDT [facility] LABDiff XdiiQhco90/03/2025 1:54 PM EDT [facility] LABSpecimen (Source)Anatomical Location / LateralityCollection Method / VolumeCollection TimeReceived TimeBloodBLOOD SPECIMEN / UnknownVenipuncture / Eggnxmw1812/07/2024 1:40 PM EDT1 1:41 PM EDT Narrative Authorizing ProviderResult TypeResult StatusViveteagan Lucio MDLABORATORYFinal ResultPerforming OrganizationAddressCity/State/ZIP CodePhone Number [facility] [address] [place] [address] * NM PET/CT SKULL-THIGH SUBSEQUENT (11/09/2024 12:10 [...] * ??Uptake Time: 61 minutes * ??Radiopharmaceutical: I80-Zbczyomhtxzfxkduvy (FDG) COMPARISON: 08/03/2024 CORRELATION: 07/29/2024 [facility] neck CTA report RESULT: REFERENCES: [...] any questions regarding this interpretation, please call [phone]. If you are unable to reach us at the number above, please feel free to contact [facility] at [phone]. Procedure Note Provider, [facility] [place] - 11/09/2024 * * *Final Report* * [...] * Uptake Time: 61 minutes * Radiopharmaceutical: V28-Vsfuxpjscyjnsvirvy (FDG) COMPARISON: 08/03/2024 CORRELATION: 07/29/2024 [facility] neck CTA report RESULT: REFERENCES: [...] any questions regarding this interpretation, please call [phone]. If you are unable to reach us at the number above, please feel free to contact [facility] eRadiology at [phone]. Authorizing ProviderResult TypeResult StatusVivek Khadijah LAGUNASNM-PAMAFinal Result * (ABNORMAL) GLUCOSE, BLOOD (POC) (11/09/2024 10:03 AM EDT)ComponentValueRef RangeTest MethodAnalysis TimePerformed AtPathologist SignatureGlucose, Point of Exja837(A)74 - 99 mg/dLSHills & Dales General HospitalComment: Location:[facility], [address] [place] [address] , [place], [place], [address] The Accu-Chek Inform II glucose meter has [...] ProviderPOC TESTINGFinal Result Performing OrganizationAddressCity/State/ZIP CodePhone Number [facility] POINT OF CARE [address] [place], [place] * (ABNORMAL) HEMOGLOBIN A1C (11/09/2024 9:56 AM EDT)ComponentValueRef RangeTest MethodAnalysis TimePerformed AtPathologist SignatureHemoglobin A1C5.9(H)4.3 - 5.6 %11/09/2024 6:43 PM [facility] LABComment:[place] Diabetes Association guidelines indicate that patients with HgbA1c in the range 5.7-6.4% are at increased risk for development of diabetes, and intervention by lifestyle modification may be beneficial. HgbA1c greater or equal to 6.5% is considered diagnostic of diabetes.Estimated Average Glucose 123mg/dL11/09/2024 6:43 PM [facility] LABComment:eAG: (Estimated average glucose) is a calculated value from HgbA1c and is vaccine customer representative of the average blood glucose level in the last 2-3 month period.Specimen (Source)Anatomical Location / LateralityCollection Method / VolumeCollection TimeReceived TimeBloodBLOOD SPECIMEN / UnknownVenipuncture / Nwnjoex3011/09/2024 9:56 AM EDT11/09/2024 10:08 AM EDT Narrative Authorizing ProviderResult TypeResult StatusVivek Khadijah LAGUNASLABORATORYFinal ResultPerforming OrganizationAddressCity/State/ZIP CodePhone Number [facility] [address] [facility] [address] * EXTERNAL CARDIOLOGY (10/30/2024 9:22 AM [...] AM EDT Images were obtained outside of [facility] Procedure Note Provider, [facility] [place] - 10/30/2024 Images were obtained outside of [facility] Authorizing ProviderResult TypeResult StatusCcf ProviderRADIOLOGYFinal Result [...] any questions regarding this interpretation, please call [phone]. If you are unable to reach us at the number above, please feel free to contact [facility] eRadiology at [phone]. Narrative 10/26/2024 11:24 AM EDT * * [...] within the thoracic spine. Procedure Note Provider, [facility] [place] - 10/26/2024 * * *Final Report* * [...] any questions regarding this interpretation, please call [phone]. If you are unable to reach us at the number above, please feel free to contact [facility] eRadiology at [phone]. Authorizing ProviderResult TypeResult StatusRoulajessica Galvez APRN.CNPRAD-PAMAFinal Result from Last [address] [place] [address] Advance Directives TypeDate RecordedPatient RepresentativeExplanationAdvance Directive(s)11/16/2023 3:40 PMAdvance Directives- Health Carer Power of Urban Renewal Manager and Living Will Care Teams Team MemberRelationshipSpecialtyStart DateEnd Date Dick Boss MD [address] [place] [address] PCP - GeneralFamily Medicine10/21/23 Preston Lucio MD [address] [place] [address] Hematology/Oncology11/04/23 Gerald Dumont MD [address] [place] [address] Hematology/Oncology11/04/23 Kathy Ruiz MD [address] [place] [address] [place] [address] 11/04/23 Preston Lucio MD [address] [place] [address] [place] [address] PhysicianHematology/Oncology11/14/23 Michelle Galvez APRN.PATROL COMMUNITY SERVICE OFFICER [address] [place] [address] [place] [address] Nurse PractitionerHematology/Oncology11/14/23 Noemy Chicas, EWELINA [address] [place] [address] [place] [address] Specialty Care CoordinatorHematology/Oncology11/14/23 Steffany Damian LSW Social Worker11/16/23 Valorie Fernandez APRN.PATROL COMMUNITY SERVICE OFFICER [address] [place] [address] [place] [id number] Hospice & Palliative Nfffaxmz11/22/24 Anna Rasmussen, RN Specialty Care CoordinatorHospice & Palliative Ypoqxqyt34/22/24
--- OUTSIDE RECORDS SUMMARY | 2025-01-17 14:12 | XMS_ITS | Clinical Summary ---
Author Organization [facility] Address [address] [place] [address] Phone Care Team Providers Care Restaurant Hourly Team Member Name Role Phone Mikhail Vega MD Primary Care Provider + Social History Tobacco UseTypesPacks/DayYears UsedDateSmoking Tobacco: Never AssessedSex and Gender InformationValueDate RecordedSex Assigned at BirthNot on fileLegal Sex Male01/29/2022 11:51 AM ESTGender IdentityNot on fileSexual OrientationNot on file Last Filed Vital Signs Vital SignReadingTime TakenCommentsBlood Jktupkkg412/8403 11:27 AM EDT Trqby6367 11:27 AM EDTTemperature--Respiratory Iyct3861 11:27 AM EDTOxygen Onkaktjclz03%05/16/2019 11:27 AM EDTInhaled Oxygen Concentration-- Ublmwg12.1 kg (185 lb 6.2 oz)05/16/2019 11:27 AM BCKOapsjd630.6 cm (5' 6 ) 05/16/2019 11:27 AM EDTBody Mass Index29.9203 11:27 AM EDT Plan of Treatment Not on file Care Teams Team MemberRelationshipSpecialtyStart DateEnd Date Mikhail Vega MD [address] [place] [address] PCP - Wpviytm33/12/15
--- OUTSIDE RECORDS SUMMARY | 2025-01-17 14:12 | XMS_ITS | Clinical Summary ---
Author Organization [facility] Address [address], [address] [place] [address] Care Team Providers Care Sandfill Operator Name Role Phone Mikhail Vega MD Primary Care Provider Unav ailable Social History Tobacco UseTypesPacks/DayYears UsedDateSmoking Tobacco: Never AssessedSex and Gender InformationValueDate RecordedSex Assigned at BirthNot on fileLegal Sex Male04/16/2012 11:30 AM ESTGender IdentityNot on fileSexual OrientationNot on file Plan of Treatment Not on file Care Teams Team MemberRelationshipSpecialtyStart DateEnd Date Mikhail Vega MD PCP - Rqvvrct56/26/12
--- OUTSIDE RECORDS SUMMARY | 2025-01-17 14:12 | XMS_ITS | Encounter Summary ---
Author Organization [facility] Address [address] [place] [address] Care Team Providers Care Computer Graphic Artist Name Role Phone Dick Boss MD Primary Care Provider [phone] Montse Duran RN Unavailable [phone] Nakia Aggarwal DO Unavailable [phone] Dick Boss MD Unavailable Encounter Details DateTypeDepartmentCare Team (Latest Contact Info)Ayjyltnokci92/20/2024Clinisync Result Encounter [facility] Unsolicited Provider, [...] relatives?Once a week04/19/2023How often do you attend gnosticist or jehovah's witness services?More than 4 times per year04/19/2023o you belong to any clubs or organizations such as gnosticist groups, unions, 1,2,3 List[employer] or athletic FONU2 ups, or school groups?Patient suikjrxh62/13/2024How often do you attend meetings of the clubs or organizations you belong to?Patient billazis27/13/2024re you , , , , never , or living with a partner? Tsvswvv5704/19/2023UDIT-CAnswerDate RecordedQ1: How often do you have a [...] hard at all04/19/2023HQ-2AnswerDate RecordedPatient Health Questionnaire-2 Score0 04/18/2024[facility] [place] [facility] - Occupational Stress QuestionnaireAnswerDate RecordedDo you feel stress - tense, restless, nervous, or anxious, or unable to sleep at night because yourmind is troubled all the time - these days?Patient ykbsfajl91/13/2024Exercise Vital SignAnswerDate RecordedOn average, how many days [...] steady place to sleep or slept in [facility] (including now)?No 04/19/2023Sex and Gender InformationValueDate RecordedSex Assigned at BirthNot on fileLegal HwaOujc5505/19/2022 7:20 PM EDTGender IdentityNot on fileSexual OrientationNot on filedocumented as of this encounter Functional Status * Over the past 2 weeks, how often have you been bothered by any of the following problems?QuestionAnswerDate of AssessmentAuthorLittle interest or pleasure in doing thingsNot at all04/18/2024 10:00 AM Gina Osuna MA Feeling down, depressed, or hopelessNot at all04/18/2024 10:00 AM Gina Osuna MAPatient Health Questionnaire-2 Vttmh988 10:00 AM Gina Osuna MA * QuestionAnswerDate [...] 10:00 AM Gina Osuna MAPatient Health Questionnaire-9 Mtntf05104/18/2024 10:00 AM Gina Osuna MA documented as of this encounter Plan of Treatment DateTypeDepartmentCare Team (Latest Contact Info)Rbsimtsfbks29/21/2026 3:15 PM EDTOffice Visit [facility] [address] [place] [phone] Ada Claudio MD [address] [place] [address] documented as of this encounter Procedures Procedure [...] was performed concurrently and is dictated separately. Aluminum Molding Machine Operator (topogram) images: Unremarkable. IMPRESSION: No metastatic disease [...] any questions regarding this interpretation, please call [phone]. If you are unable to reach us at the number above, please feel free to contact [facility] at [phone]. [id number]^AGFA_IDC^SI^ACN Procedure Note Radiology, Radiologist, - 01/25/2024 * * *Final Report* * * DATE OF EXAM: Jan 25 2024 10:16AM [facility] 0530 - CT ABD/PEL W IVCON / [...] was performed concurrently and is dictated separately. Aluminum Molding Machine Operator (topogram) images: Unremarkable. IMPRESSION: No metastatic disease [...] any questions regarding this interpretation, please call [phone]. If you are unable to reach us at the number above, please feel free to contact [facility] at [phone]. [id number]^AGFA_IDC^SI^ACN Authorizing ProviderResult TypeResult StatusGeneric External Data Provider [facility] IMAGINGFinal Result documented in this encounter Visit Diagnoses Not on filedocumented in this encounter Additional Health Concerns AssessmentNoted TimeA fall risk assessment has been completed for the patient 08/11/2023 12:48 PM EDTdocumented as of this encounter Care Teams Team MemberRelationshipSpecialtyStart DateEnd Date Dick Boss MD PCP - GeneralFamily Medicine04/20/23 Nakia Aggarwal DO [address] [facility] [address] [place] [phone] PCP - Treasure CLARK/ Dick Boss MD [address] [place] [address] PCP - Treasure MA/ Montse Duran, RN [address] [place] [address] Registered NurseFamily Medicinedocumented as of this encounter
--- OUTSIDE RECORDS SUMMARY | 2025-01-17 14:19 | XMS_ITS | CCD ---
Author Organization [facility] Care Team Providers Care Automobile Taillight Assembler Name Role Phone Maddie Molly Armstrong Attending Unavailable Basia Vega Primary Care UnavailVika Collins Admitting Unavailable Vika Mcfarlane Attending Unavailable Shalom Driver Referring Unavailable Basia Vega Primary Care Unavailable MAXWELL WYNN Attending Unavailable MAXWELL WYNN Consulting Unavailable BASIA VEGA Primary Care Unavailable MAXWELL WYNN Admitting Unavailable BASIA VEGA Admitting Unavailable BASIA VEGA Attending Unavailable BASIA VEGA Consulting Unavailable BASIA VEGA Primary Care Unavailable Basia Vega Primary Care Provider Rod Gonzalez Attending Provider [phone] Nakia Montez DO Unavailable Dick Miranda MD Primary Care Provider KASSIDY VILLASENOR Referring Unavailable DICK MIRANDA Primary Care Unavailable ODETTE BAPTISTE Admitting Unavailable NANO, ODETTE Attending Unavailable NANO, ODETTE Attending Unavailable NANO, ODETTE Referring Unavailable DICK MIRANDA Primary Care Unavailable Basia Vega Primary Care Provider [phone] Dick Miranda Primary Care Provider [phone] HUGH CRAIG Attending Unavailable HUGH CRAIG Admitting Unavailable DICK MIRANDA Primary Care Unavailable Khadijah LAGUNAS, Lo Unavailable Gerald Abdi MD Unavailable Olegario Moreira MD Unavailable Lo Hancock MD Unavailable [phone] Jackie LEE.MAPPING SPECIALIST, Michelle Unavailable [phone] Aviva THEODORE, Noemy Unavailable Rickie RIOS, Steffany Unavailable Unavailable Trinidad LAGUNAS, Angulo Unavailable Joseph LAGUNAS, Olegario Unavailable Renee THEODORE, Crystal Unavailable [phone] Joseph LAGUNAS, Olegario Unavailable Dick Miranda MD Primary Care Provider [facility] INSPECTOR HEATING AND REFRIGERATION.MAPPING SPECIALIST, Joey Romero Unavailable Grady THEODORE, Anna Aguiar Unavailable Unavail able Nakia Montez DO Unavailable Karyn LAGUNAS, Dick Primary Care Provider Nakia Montez DO Primary Care Provider [phone] Karyn LAGUNAS, Dick Primary Care Provider Joseph LAGUNAS, Olegario Unavailable Nakia Montez DO Unavailable Trinidad LAGUNAS, Gerald Unavailable Dick Miranda MD Unavailable OLEGARIO MOREIRA Attending Unavailable NAKIA MONTEZ Referring Unavailable NADERER, DICK Primary Care Unavailable [...] Unavailable Karyn LAGUNAS, Dick Primary Care Provider [phone] Renee THEODORE, Crystal Unavailable [phone] Karyn LAGUNAS, Dick Primary Care Provider GERALD ABDI Attending Unavailable SHADIA, KASSIDY A Referring Unavailable NADERER, DICK Primary Care Unavailable GERALD ABDI Attending Unavailable GERALD ABDI Referring Unavailable NADERER, DICK Primary Care Unavailable TRINIDAD, ANGULO N Referring Unavailable NADERER, DICK Primary Care Unavailable GERALD ABDI Attending Unavailable NADERER, DICK Referring Unavailable NADERER, [...] AFRIDI, OLEGARIO Moreno Attending Unavailable AFRIDI, OLEGARIO Moreno Referring Unavailable NADERER, DICK Primary Care Unavailable NADERER, DICK Primary Care Unavailable EVELYN PAZ Attending Unavailable NEHA GARCIA Attending Unavailable NADERER, DICK Referring Unavailable NADERER, DICK Primary Care Unavailable Basia Vega MD Primary Care Provider Romario DISH MACHINE OPERATOR-C, Meilnda Lopez Attending Provider Dick Miranda MD Primary Care Provider Don LAGUNAS, Wendy Erickson Emergency Provider FriClarence resendiz DO Admit Provider [phone] Clarence Stevens DO Attending Provider [phone] Friastrid YANG, Clarence Other Provider [phone] Enoc Barron MD Attending Provider Enoc Barron MD Other Provider Clarence Stevens Attending Unavailable Clarence Stevens Admitting Unavailable Enoc Barron Consulting Unavailable Naderer, Dick Primary Care Unavailable Khadijah LAGUNAS, Lo Molina Attending Provider Dick Miranda MD Attending Provider DICK MIRANDA Attending Unavailable ROBERT KING Attending Unavailable ROBERT KING Attending Unavailable SUSAN CLAUDIO Attending Unavailable LO HANCOCK Referring Unavailable ARLEY DONOVAN Referring Unavailable VERÓNICA DUMONT Attending Unavailable SAPORITA, SERGIO L Referring Unavailable BRINK, ANMOL Attending Unavailable SAPORITA, SERGIO L Referring Unavailable KELBLEY, NILDA Attending Unavailable SAPORITA, SERGIO L Referring Unavailable SONIA, ARNULFO Attending Unavailable SAPORITA, SERGIO L Referring Unavailable SONIA, RANULFO Attending Unavailable SAPORITA, SERGIO L Referring Unavailable SONIA, ARNULFO Attending Unavailable SAPORITA, SERGIO L Referring Unavailable NADERER, DICK Attending Unavailable KELBLEY, NILDA Attending Unavailable SAPORITA, SERGIO L Referring Unavailable BRINK, ANMOL Attending Unavailable SAPORITA, SERGIO L Referring Unavailable MARANDAJOS Referring Unavailable NADERER, DICK Attending Unavailable KEESHA, EIRN Dietz Attending Unavailable NADERER, DICK Attending Unavailable KINGROBERT Attending Unavailable ABHYANKAR, LO Referring Unavailable NADERER, DICK A Primary Care Unavailable ABHYANKAR, LO Referring Unavailable NADERER, DICK A Primary Care Unavailable RHEA GODDARD Attending Unavailabl e ABHYANKAR, LO Referring Unavailable NADERER, DICK A Primary Care Unavailable BUNDRIDCONCEPCION, JOEY Romero Attending Unavailabl e NADERER, DICK A Primary Care Unavailable NADERER, DICK A Primary Care Unavailable BUNDRIDCONCEPCION, JOEY Romero Attending Unavailabl e BUNDRIDJOEY JAVIER Referring Unavailabl e NADERER, DICK A Primary [...] Unavailable NADERER, DICK A Primary Care Unavailable ED, JACK Referring Unavailable NADERER, DICK A Primary Care Unavailable DE, JACK Attending Unavailable DE, JACK Referring Unavailable NADERER, DICK A Primary Care Unavailable ABHYANKAR, LO Referring Unavailable NADERER, DICK A Primary Care Unavailable ABHYANKAR, LO Attending Unavailable ABHYANKAR, LO Referring Unavailable NADERER, DICK A Primary Care Unavailable BUNDRIDGE, JOEY Romero Attending Unavailabl e ABHYANKAR, LO Referring Unavailable [...] LAGUNAS, Sariah De La Rosa Attending Unavailable Dick Miranda MD Primary Care Provider [phone] Renee THEODORE, Crystal Unavailable Nakia Montez DO Unavailable Karyn LAGUNAS, Dick Unavailable Unavailable Unavailable Unavailable Allergies Allergy ClassificationReported Allergen(s)Allergy TypeDate of OnsetReaction(s) Facility (1 source)Sulfonamides (Antibiotic)Drug allergy (disorder)[id number] ([facility] sources)Sulfonamides (Antibiotic)Drug Ebyfmbv20-02-3365LgjgeodB[facility] (8 sources)Sulfonamides (Antibiotic); Translations: [SULFA (SULFONAMIDE ANTIBIOTICS)]Propensity to adverse reactions to drug (disorder)10-15-2011 unknown; childhood allergyPro[facility]ica Repository (20 sources)tiotropiumDrug Zowblco07-38-4099IbqspuegtC[facility] Health [facility] Work Phone: (20 sources)gabapentin; Translations: [GABAPENTIN]Drug Boauswk09-89-1651Foqku, IntoleranceSt. [facility] (2 sources)tiotropiumDrug Nvqzrvg64-36-2182Xkpljwk [facility] (3 sources)tiotropiumDrug Jsfotlr04-17-3766Beexxsnbs of breathSt. Louis VA Medical Center Work Phone: Medications Current Medications MedicationDrug Class(es)DatesSig (Normalized)Sig (Original)acetaminophen 325 mg / HYDROcodone bitartrate 7.5 mg oral tablet (20 sources)Opioid AgonistStart: 84-55-7765xsnd 1 tablet by mouth every six hours as neededHydrocodone-Acetaminophen 7.5-325 mg tablet Active 1 TAB PO Twice daily as needed for pain October 27, 2024 12:00am FreeTextSig: (Schedule II Drug) TAKE 1 TABLET BY MOUTH EVERY 6 HOURS NEEDED Oral; Note: Source Status: Taking; Refills: 0; Qty: 30 Unspecified; Provider: MORGAN FLOR Complies with drug therapyStart: 09-19-2024 End: 19-39-0307qdhr 1 tablet by mouth four times daily as needed for pain HYDROcodone-acetaminophen (Drury) 7.5-325 MG tablet Indications: DDD (degenerative disc disease), cervical Take 1 tablet by mouth 4 (four) times a day as needed for severe pain for up to 23 days 90 tablet 09/19/2024 10/17/2024 ActiveStart: 08-08-2024 End: 11-15-7677rsqg 1 tablet by mouth four times daily as needed for pain HYDROcodone-acetaminophen (Drury) 7.5-325 MG tablet Indications: DDD (degenerative disc disease), cervical Take 1 tablet by mouth 4 (four) times a day as needed for severe pain for up to 23 days 90 tablet 08/08/2024 08/31/2024 ActiveStart: 06-26-2024 End: 83-21-6760hjgc 1 tablet by mouth four times daily as needed for pain HYDROcodone-acetaminophen (Drury) 7.5-325 MG tablet Indications: DDD (degenerative disc disease), cervical Take 1 tablet by mouth 4 (four) times a day as needed for severe pain for up to 23 days 90 tablet 06/26/2024 07/19/2024 ActiveStart: 05-14-2024 End: 46-28-2083wsvp 1 tablet by mouth four times daily as needed for pain HYDROcodone-acetaminophen (Drury) 7.5-325 MG tablet Indications: DDD (degenerative disc disease), cervical Take 1 tablet by mouth 4 (four) times a day as needed for severe pain for up to 23 days 90 tablet 05/14/2024 06/06/2024 ActiveStart: 04-02-2024 End: 46-46-5635wnkr 1 tablet by mouth four times daily as needed for pain HYDROcodone-acetaminophen (Drury) 7.5-325 MG tablet Indications: DDD (degenerative disc disease), cervical Take 1 tablet by mouth 4 (four) times a day as needed for severe pain for up to 23 days 90 tablet 04/02/2024 04/25/2024 ActiveStart: 02-20-2024 End: 11-01-6791jvvm 1 tablet by mouth four times daily as needed for pain HYDROcodone-acetaminophen (Drury) 7.5-325 MG tablet Indications: DDD (degenerative disc disease), cervical Take 1 tablet by mouth 4 (four) times a day as needed for severe pain for up to 23 days 90 tablet 02/20/2024 03/14/2024 ActiveStart: 12-19-2023 End: 60-16-2285jueb 1 tablet by mouth four times daily as needed for pain HYDROcodone-acetaminophen (Drury) 7.5-325 MG tablet Indications: DDD (degenerative disc disease), cervical Take 1 tablet by mouth 4 (four) times a day as needed for severe pain for up to 23 days 90 tablet 01/17/2024 02/09/2024 ActiveStart: 11-18-2023 End: 29-32-8268utbm 1 tablet by mouth four times daily as needed for pain HYDROcodone-acetaminophen (Drury) 7.5-325 MG tablet Indications: DDD (degenerative disc disease), cervical Take 1 tablet by mouth 4 (four) times a day as needed for severe pain for up to 23 days 90 tablet 11/18/2023 12/11/2023 ActiveStart: 10-28-2023 End: 78-44-4038oaey 1 tablet by mouth four times daily as needed for pain HYDROcodone-acetaminophen (Drury) 7.5-325 MG tablet Indications: DDD (degenerative disc disease), cervical Take 1 tablet by mouth 4 (four) times a day as needed for severe pain for up to 7 days 28 tablet 10/28/2023 11/04/2023 ActiveStart: 11-02-2019 End: 12-51-7286lnim 1 tablet by mouth every six hours [...] hours as needed for pain. Active End: 09-76-4973satb 1 tablet by mouth every six hours [...] 6 (six) hours asneeded for pain. Active [id number] 200 actuat albuterol 0.09 mg/actuat metered dose inhaler (20 sources)beta2-Adrenergic AgonistStart: 11-21-2024 End: 54-83-5048izpw 1 puff(s) by inhalation every six hours as needed for wheezingAlbuterol Sulfate 90 mcg/actuation HFA aerosol inhaler Active 2 PUFF INHALATION Every 6 hours as needed for shortness of breath or wheezing 8.5 December 03, 2024 2:10pm Complies with drug therapyStart: 66-52-8279hokt 2 puff(s) by inhalation every six hoursalbuterol HFA 90 mcg/act inhaler Inhale 2 puffs every 6 (six) hours if needed 10/20/2023 ActiveStart: 78-74-6020xtkc 2 puff(s) by inhalation every six hours as neededalbuterol HFA (PROVENTIL HFA, VENTOLIN HFA) 90 mcg/actuation inhaler Inhale 2 Puffs as instructed every 6 hours as needed. 10/20/2023 ActiveStart: 27-73-9630alsq 2 puff(s) by inhalation every six hours as needed for wheezingalbuterol (PROVENTIL HFA;VENTOLIN HFA) 90 mcg/actuation inhaler Indications: Chronic obstructive pulmonary disease, unspecified COPD type ([facility]) Inhale 2 puffs every 6 (six) hours as needed for wheezing. 18 g 11 10/20/2023 ActiveamLODIPine 10 mg oral tablet (20 sources)Dihydropyridine Calcium Channel BlockerStart: 14-62-5708hlgn 1 tablet by mouth once dailyAmlodipine 10 mg tablet Active 10 MG PO Daily October 27, 2024 12:00am Complies with drug therapyascorbic acid 500 mg oral tablet (20 sources)Vitamin CStart: 37-25-2803iuqt 1 tablet by mouth once dailyAscorbic Acid (Vitamin C) (Vitamin C) 500 mg Tablet Active 500 MG PO Daily November 02, 2019 12:00am Complies with drug therapytake 1 tablet by mouth in the morning ascorbic acid (Vitamin C) 500 MG tablet Take 500 mg by mouth in the morning. Activeaspirin 81 mg oral tablet (20 sources)Platelet Aggregation Inhibitor, Nonsteroidal Anti-inflammatory Drug Start: 32-05-8222hgft 1 tablet by mouth once dailyAspirin 81 mg tablet Active 81 MG PO Daily October 27, 2024 12:00am Complies with drug therapyStart: 59-76-3742kwwl 1 tablet by mouth in the morningaspirin 81 mg Indications: Essential hypertension , Bilateral carotid artery stenosis , Occlusive disease, arterial TAKE 1 TABLET (81 MG TOTAL) BY MOUTH IN THE MORNING 90 tablet 1 04/16/2024 ActiveStart: 74-81-8532rmpl 1 tablet by mouth in the morningaspirin 81 mg Indications: Essential hypertension , Bilateral carotid artery stenosis , Occlusive disease, arterial TAKE 1 TABLET (81 MG TOTAL) BY MOUTH IN THE MORNING 90 tablet 1 10/25/2023 ActiveStart: 09-30-2023 End: 10-60-6282usuy 1 tablet by mouth in the morningaspirin 81 mg Indications: Essential hypertension , Bilateral carotid artery stenosis , Occlusive disease, arterial TAKE 1 TABLET (81 MG TOTAL) BY MOUTH IN THE MORNING 90 tablet 1 10/25/2023 Activeatorvastatin 40 mg oral tablet (20 sources)HMG-CoA Reductase InhibitorStart: 67-50-1339ayxo 1 tablet by mouth once dailyAtorvastatin 40 mg tablet Active 40 MG PO Daily November 02, 2019 12:00am Complies with drug therapybetamethasone 0.5 mg/ml topical cream (2 sources)CorticosteroidStart: 09-20-2022 End: 30-01-9741dvehydilzsesz dipropionate 0.05 % cream Indications: Prurigo nodularis Apply to affected area on hand twice a day prn itching 45 g 11 09/20/2022 04/20/2023 Discontinuedcetirizine hydrochloride 10 mg oral tablet (20 sources)Histamine-1 Receptor Antagonisttake 1 tablet by mouth in the morning cetirizine (ZyrTEC) 10 mg tablet Take 1 tablet (10 mg total) by mouth in the morning. Active End: 29-22-2565vaks 1 capsule by mouth once dailyCetirizine 10 mg cap Take 10 mg by mouth once daily. 07/20/2024 Discontinued (Discontinued by Patient) cholecalciferol 0.025 mg oral tablet (20 sources)Vitamin DStart: 89-01-3511nxkhhmlhsjfbtcc (VITAMIN D3) 1,000 unit tab tablet Take 1,000 Units by mouth. 10/06/2023 ActiveStart: 22-11-3122yspb 1 tablet by mouth in the morningcholecalciferol (Vitamin D-3) 25 MCG (1000 UT) tablet Take 500 Units by mouth in the morning. 10/06/2023 ActiveStart: 10-06-2023 End: 23-41-8950hjjg 1 tablet by mouth once dailycholecalciferol (VITAMIN D3) 1,000 unit tab tablet Take 1,000 Units by mouth once daily. Discontinued (Discontinued by another Health Care Provider)Start: 03-21-2020 End: 96-89-0697oioh 1 tablet by mouth once dailyCholecalciferol (Vitamin D3) (Vitamin D3) 25 mcg (1,000 unit) Tablet,Chewable Discontinued 1000 UNIT PO Daily March 21, 2020 1:00am October 27, 2024 6:15pmcilostazol 100 mg oral tablet (1 source)Phosphodiesterase 3 InhibitorStart: 82-33-7432cglk 1 tablet by mouth in the morning, then take 1 tablet by mouth at bedtimecilostazoL (PLETAL) 100 mg tablet Indications: Right internal carotid occlusion , Occlusive disease, arterial Take 1 tablet (100 mg total) by mouth in the morning and 1 tablet (100 mg total) before bedtime. 90 tablet 5 06/27/2023 Activeclopidogrel 75 mg oral tablet (20 sources)P2Y12 Platelet InhibitorStart: 10-27-2024 End: 93-58-0885xuis 1 tablet by mouth once dailyStart: 94-54-6509uacp 1 tablet by mouth once daily in the morningclopidogreL (PLAVIX) 75 mg tablet Indications: Essential hypertension , Bilateral carotid artery stenosis , Occlusive disease, arterial TAKE 1 TABLET BY MOUTH EVERY DAY IN THE MORNING 90 tablet 1 10/10/2024 ActiveStart: 03-06-2024 End: 85-98-8367ubri 1 tablet by mouth once daily in [...] 90 tablet 1 10/25/2023 ActiveStart: 09-30-2023 End: 44-52-4135syhp 1 tablet by mouth once daily in [...] diazePAM 5 mg oral tablet (20 sources)BenzodiazepineStart: 54-96-4337mmsa 1 tablet by mouth three times daily as neededDiazepam 5 mg tablet Active 5 MG PO Three times daily as needed November 21, 2024 12:00am Complies with drug therapyStart: 10-12-2023 End: 59-21-4700rdeh 1 tablet by mouth three times daily as needed for anxiety diazePAM (Valium) 5 MG tablet Indications: KIKO (generalized anxiety disorder) Take 1 tablet (5 mg) by mouth 3 (three) times a day as needed for anxiety 90 tablet 06/05/2024 ActiveStart: 11-02-2019 End: 12-10-5590hsbe 1 tablet by mouth every six hours as needed for muscle spasmsDiazepam 5 mg Tablet Discontinued 5 MG PO Q6H as needed for Spasms November 02, 2019 12:00am November 08, 2019 8:03amdocusate sodium 100 mg oral capsule (5 sources)Start: 29-74-8843npyy 1 capsule by mouth twice daily as needed for constipationDocusate Sodium 100 mg Capsule Active 100 MG PO Twice daily as needed for Constipation 30 10 2024 12:00am Complies with drug therapytake 1 tablet by mouth twice dailyDocusate Sodium 100 mg tab Take 100 mg by mouth two times a day. Activedoxepin hydrochloride 75 mg oral capsule (8 sources)Tricyclic AntidepressantStart: 76-89-5845mxjt 1 capsule by mouth once daily at bedtimeDoxepin 75 mg capsule Active 75 MG PO Daily at bedtime November 21, 2024 12:00am Complies with drug therapyStart: 55-22-1984ydvb 1 capsule by mouth at bedtimedoxepin (SINEquan) 75 MG capsule Indications: Primary insomnia Take 1 capsule (75 mg) by mouth at bedtime 30 capsule 3 10/17/2024 Activefexofenadine hydrochloride 180 mg oral tablet (20 sources)Histamine-1 Receptor AntagonistStart: 80-87-5672rfap 1 tablet by mouth once dailyFexofenadine 180 mg tablet Active 180 MG PO Daily November 21, 2024 12:00am Complies with drug therapyfexofenadine HCl (ITZEL ORAL) Take 180 mg by mouth. Activegabapentin 100 mg oral capsule (20 sources)Anti-epileptic AgentStart: 12-23-2023 End: 62-09-3856tvsu 2 capsules by mouth once daily at bedtimegabapentin (NEURONTIN) 100 mg capsule Take 2 capsules by mouth daily at bedtime for 60 days. 30 capsule 1 12/23/2023 12/28/2023 DiscontinuedStart: 11-29-2023 End: 60-68-1674huon 1 capsule by mouth once daily at bedtime, then take 1 capsule by mouth once dailygabapentin (NEURONTIN) 100 mg capsule Take 1 capsule (100 mg total) by mouth once daily at bedtime.Pt is only taking one tablet a day. 12/26/2023 ActiveStart: 03-21-2020 End: 06-21-9769bvmj 1 capsule by mouth three times dailyGabapentin 300 mg capsule Discontinued 300 MG PO Three times daily March 21, 2020 1:00am 2024 6:16pmStart: 42-25-1082ogidwapuxg (NEURONTIN) 100 mg capsule Indications: Tension headache [...] hydrochlorithiazide 50mg takes daily . Active End: 03-30-8192sxqa 1 tablet by mouth in the morninglosartan-hydroCHLOROthiazide (Hyzaar) 100-25 MG tablet Take 1 tablet by mouth in the morning. 0 04/20/2023 Discontinuedibuprofen 600 mg oral tablet (3 sources)Nonsteroidal Anti-inflammatory DrugStart: 67-75-6399Eiltvzenn 600 mg tablet Active 600 MG PO every 6 to 8 hours as needed for pain October 292:00am Complies with drug therapyketoconazole 10 mg/ml medicated shampoo (20 sources)Azole AntifungalStart: 40-50-7148Txmfbcgaihyq 1 % shampoo Active 1 APPLIC TOPICAL Twice a Week November 21, 2024 12:00am Complieswith drug therapyStart: 87-16-7322Woalmhlwtwyz (Nizoral) 1 % shampoo Indications: Seborrheic dermatitis Apply 1 Application topically2 (two) times a week 200 mL 3 04/19/2024 ActiveKetoconazole (Nizoral) 1 % shampoo (8 sources)Start: 47-16-2443Goijxjpzgvzk (Nizoral) 1 % shampoo Indications: Seborrheic dermatitis Apply 1 Application topically2 (two) times a week 200 mL 3 04/19/2024 Activekrill oil 500 mg oral capsule (20 sources)Start: 11-41-1163knft 1 capsule by mouth once dailyKrill Oil 500 mg capsule Active 500 MG PO Daily November 21, 2024 12:00am Complies with drug therapyloratadine 10 mg oral tablet (3 sources) End: 16-59-3583piye 1 tablet by mouth once dailyloratadine (CLARITIN) 10 mg tablet Take 10 mg by mouth daily. Activemeloxicam 7.5 mg oral tablet (20 sources)Nonsteroidal Anti-inflammatory DrugStart: 10-10-2024 End: 76-01-2234hqzc 1 tablet by mouth once daily at bedtimeMeloxicam 7.5 mg tablet Active 7.5 MG PO Daily at bedtime October 27, 2024 12:00am Complies with drug therapyStart: 10-12-2023 End: 75-68-9556rlgb 1 tablet by mouth once dailymeloxicam (MOBIC) 7.5 mg tablet Take 1 tablet by mouth once daily. 10/12/2023 12/23/2023 DiscontinuedMELOXICAM ORAL Take by mouth. ActivemetFORMIN hydrochloride 850 mg oral tablet (20 sources)BiguanideStart: 85-33-5538mxoy 1 tablet by mouth once dailyMetformin 850 mg tablet Active 850 MG PO Daily October 27, 2024 12:00am Complies with drug therapyStart: 12-20-2022 End: 90-16-3934bjpp 1 tablet by mouth once daily at breakfastmetFORMIN (GLUCOPHAGE) 850 mg tablet Take 850 mg by mouth daily with breakfast. 10/02/2023 Wuiwrz73/70 release 24 hr methylphenidate hydrochloride 10 mg extended release oral capsule (20 sources)Central Nervous System StimulantStart: 62-75-1899Cmxqweswgdhyxcw Hcl 10 mg capsule, ER biphasic 30-70 Active 10 MG PO Every morning November 21, 2024 12:00am Complies with drug therapyStart: 12-28-2023 End: 29-40-4156tlds 1 tablet by mouth twice dailymethylphenidate (RITALIN) 10 mg tablet Indications: Malaise and fatigue , Attention deficit hyperactivity disorder (ADHD), combined type Take 1 tablet by mouth two times a day for 30 days. 60 tablet 07/09/2024 ActiveStart: 10-21-2014 End: 79-66-6763oxyetuersiuiuid (RITALIN) 10 mg tablet Take 1 tablet as needed by oral route. 10/21/2014 10/26/2023iscontinuedStart: 05-17-2014 End: 51-53-7711fcrx 1 tablet by mouth in the morningmethylphenidate (RITALIN) 5 mg tablet Take 1 tablet(s) in AM and at 1 PM by oral route. 05/17/2014 0 10/26/2023 DiscontinuedmethylPREDNISolone (16 sources)CorticosteroidStart: 11-06-2024 End: 19-86-5564slpgfsFFSBJHEhofih (MEDROL, ZACH,) 4 mg Dose-Pack Take as instructed per package. 21 tablet 11/06/2024 11/12/2024 ActiveStart: 04-23-2024 End: 52-59-1356khudaxKFNXNNEewfvf acetate (DEPO-Medrol) injection 40 mgStart: 04-23-2024 End: 76-15-121154 mg, Intra-articular, Once PRN Procedure, Starting on Tue04/23/24 at 1510, For 1 doseStart: 03-08-2024 End: 86-30-4203cufcvzHSMLDPAfbqnp acetate (DEPO-Medrol) injection 40 mgStart: 03-08-2024 End: 78-23-444985 mg, Intra-articular, Once PRN Procedure, Starting on Irma 03/08/24 at 1235, For 1 dosemetroNIDAZOLE 7.5 mg/ml topical lotion (2 sources)Nitroimidazole AntimicrobialStart: 02-24-2023 End: 30-58-0722ezsodRQEAYSTR (Metrolotion) 0.75 % lotion lotion Indications: Other rosacea Apply thin layer to face, once daily, 30 day supply 59 mL 11 02/24/2023 04/20/2023 Discontinuedminocycline 50 mg oral capsule (2 sources)Tetracycline-class DrugStart: 12-20-2022 End: 80-19-2557zgal 1 capsule by mouth twice dailyminocycline 50 [...] tablet by mouth in the morning. 0 VnfxotOdiplupz-Erv-Yh-Lycopen-Lutein (Men 50 Plus Multivitamin) 300-600-300 mcg Tablet (1 source)Start: 55-24-7579dgfu 50-300 tablets by mouth once daily Qonfqkcs-Cjp-Km-Lycopen-Lutein (Men 50 Plus Multivitamin) 300-600-300 mcg Tablet [...] 1 tablet by mouth once daily. 0 SwctooOw-Zup-Gsnsp-D4-Ldgrzam-Jxmqdb (Men 50 Plus Multivitamin) 300-600-300 mcg Tablet (4 sources)Start: 55-54-7401prnn 50-300 tablets by mouth once dailyStart: 44-14-0631utxh 50-300 tablets by mouth once knhgnZu-Ksd-Jbfdk-Z6-Ltlunty-Paxwpv (Men 50 Plus Multivitamin) 300-600-300 mcg Tablet Active 1 TAB PO Daily November 02, 2019 12:00am Complies with drug evwftcv71 hr nicotine 0.875 mg/hr transdermal system (20 sources)Cholinergic Nicotinic AgonistStart: 10-03-2023 End: 85-05-4855rcsmxwew (Nicoderm, Step 1) 21 MG/24HR patch Indications: Cigarette smoker Place 1 patch over 24 hours on the skin 1 (one) time each day at the same time 30 patch 1 10/03/2023 10/17/2024 DiscontinuedStart: 10-03-2023 End: 87-03-9690ejfhj 1 dose transdermal route every hournicotine (NICODERM) 21 mg/24 hr Apply 1 Patch as directed. 10/03/2023 03/23/2024 Discontinued (Disco ntinued by another Health Care Provider)Nicotine Polacrilex (NICORETTE) [address] 4 mg between cheek and gum as needed. ActiveOmega 5-Ggd-Yhk-Fish Oil (Fish Oil) 1,000 mg (120 mg-180 mg) Capsule (5 sources)Start: 30-05-2732frwe 1 capsule by mouth once dailyOmega 0-Svr-Xti-Fish Oil (Fish Oil) 1,000 mg (120 mg-180 mg) Capsule Active 1 CAP PO Daily November 02, 2019 1:54pm Stopped 11/01/28Start: 11-02-2019 End: 04-81-6625jxdr 1 capsule by mouth once dailyOmega 1-Cuy-Rnc-Fish Oil (Fish Oil) 1,000 mg (120 mg-180 mg) Capsule Discontinued 1 CAP PO Daily November 02, 2019 12:00am March 21, 2020 11:09am Stopped 11/01/28omeprazole 20 mg delayed release oral tablet (20 sources)Proton Pump InhibitorStart: 87-95-3021feyx 1 tablet by mouth once dailyOmeprazole 20 mg tablet,delayed release (DR/EC) Active 20 MG PO Daily November 21, 2024 12:00am Complies with drug therapyondansetron 8 mg oral tablet (20 sources)Serotonin-3 Receptor AntagonistStart: 11-14-2023 End: 75-53-7999bczj 1 tablet by mouth every eight hours as neededondansetron (Zofran) 8 MG tablet Take 8 mg by mouth every 8 (eight) hours if needed 11/14/2023 10/17/2024 DiscontinuedpredniSONE 10 mg oral tablet (20 sources)Start: 11-09-2024 End: 70-09-8175ntev 2 tablets by mouth once dailypredniSONE (DELTASONE) 10 mg tablet Indications: Radiation-induced pulmonary fibrosis (HCC) , Malignant neoplasm of unspecified part of unspecified bronchus or lung (HCC) , Neuralgia Take 2 tablets by mouth once daily. 60 tablet 11/09/2024 12:40 PM EDT 11/09/2024 12/09/2024 ActiveStart: 57-77-0472zyic 2 tablets by mouth once dailyPrednisone 20 mg Tablet Active 40 MG PO Daily 8 4 October 29, 2024 12:00am Complies with drug therapyStart: 61-84-7667nuez 4 tablets by mouth once, then take 1 tablet by mouthPrednisone Active 1 dose pk PO per package directions November 08, 2019 7:04am take 4 tabs for3 days then take 3 tabs for 3 days then take 2 tabs for 3 days then take 1 tab for 3 daysStart: 11-08-2019 End: 23-32-6849Sbcytvyiuf 10 mg tablets,dose pack Discontinued 1 dose pk PO per package directions March 21, 2020 1:00am October 27, 2024 6:17pm take 4 tabs for 3 days then take 3 tabs for 3 days then take 2 tabs for 3 days then take 1 tab for 3 daysStart: 11-02-2019 End: 45-96-9457Ueuhtevgig 10 mg tablet Discontinued 10 MG PO As Directed November 02, 2019 12:00am November 08, 2019 8:03amStart: 05-16-0628aqjp 1 tablet by mouth once daily, then take 1 tablet by mouth twice daily, then take 1 tablet by mouth once dailypredniSONE (DELTASONE) 20 mg tablet TAKE 1 TAB BY MOUTH 3X DAILY FOR 3 DAYS, 1 TAB TWICE DAILY FOR 3 DAYS, 1 TAB DAILY FOR 3 DAYS 10/13/2019 Activepregabalin 75 mg oral capsule (20 sources)Start: 11-21-2024 End: 38-27-2944gnkb 1 capsule by mouth twice dailyPregabalin (Lyrica) 75 mg capsule Active 75 MG PO Twice daily 60 November 21, 2024 2:18pm Complies with drug therapyStart: 01-17-2024 End: 84-11-9089cwby 1 capsule by mouth in the morningpregabalin (Lyrica) 75 MG capsule Indications: Chemotherapy-induced neuropathy (HCC) Take 1 capsule(75 mg) by mouth in the morning and 1 capsule (75 mg) before bedtime. 60 capsule 2 07/11/2024 10/17/2024 DiscontinuedStart: 01-17-2024 End: 37-74-2226hkgy 1 capsule by mouth in the morningpregabalin (Lyrica) 75 MG capsule Indications: Chemotherapy-induced neuropathy (CMS/HCC) Take 1 capsule (75 mg) by mouth in the morning and 1 capsule (75 mg) before bedtime. 60 capsule 2 01/17/2024 Activeprochlorperazine 10 mg oral tablet (20 sources)PhenothiazineStart: 11-14-2023 End: 61-68-4633dvyd 1 tablet by mouth every six hours as neededprochlorperazine (Compazine) 10 MG tablet Take 10 mg by mouth every 6 (six) hours if needed 11/14/2023 10/17/2024 Discontinuedpropranolol hydrochloride 20 mg oral tablet (20 sources)beta-Adrenergic BlockerStart: 98-75-8523gpvz 1 tablet by mouth once daily as neededPropranolol 20 mg tablet Active 20 MG PO Daily as needed November 21, 2024 12:00am Complies withdrug therapytake 1 tablet by mouth three times dailypropranoloL (INDERAL) 20 mg tablet Take 1 tablet (20 mg total) by mouth 3 (three) times a day. Activesildenafil 100 mg oral tablet (20 sources)Phosphodiesterase 5 InhibitorStart: 98-02-4063Mboshxtdgo 100 mg tablet Active 100 MG PO Daily as needed November 21, 2024 12:00am administer 30 minutes to 4 hours before activity Complies with drug therapyStart: 12-15-2022 End: 96-46-4921rsem 1 tablet by mouth once daily as neededsildenafil (Viagra) 100 MG tablet Indications: Erectile dysfunction, unspecified erectile dysfunctio n type Take 1 tablet (100 mg) by mouth Daily as needed for erectile dysfunction. 10 tablet 10 12/15/2022 Activeterazosin 1 mg oral capsule (20 sources)alpha-Adrenergic BlockerStart: 95-72-3723eerh 1 capsule by mouth once daily at bedtimeTerazosin 1 mg capsule Active 1 MG PO Daily at bedtime October 27, 2024 12:00am Complies with kmyuzndhoop31 actuat tiotropium 0.0025 mg/actuat inhalation spray (13 sources)AnticholinergicStart: 51-96-3111afxz 2 puff(s) by inhalation in the morningtiotropium bromide (SPIRIVA RESPIMAT) 2.5 mcg/actuation mist Indications: Chronic obstructive pulmonary disease, unspecified COPD type ([facility]-HCC) Inhale 2 puffs in the morning. 4 g 12 10/20/2023 ActivetiZANidine 4 mg oral tablet (3 sources)Central alpha-2 Adrenergic Agonisttake 6 mg by mouth every six hours as neededtiZANidine (ZANAFLEX) 4 mg tablet Take 1.5 tablets (6 mg total) by mouth every 6 (six) hours as needed for muscle spasms. Active End: 42-45-3459qgjf 6 mg by mouth every six hours as neededtiZANidine (Zanaflex) 4 MG tablet Take 6 mg by mouth every 6 (six) hours if needed. 0 04/20/2023 Dis continuedtraZODone hydrochloride 100 mg oral tablet (20 sources)Serotonin Reuptake InhibitorStart: 12-23-2023 End: 38-48-7374huyp 1 tablet by mouth once daily at bedtimetraZODone (DESYREL) 100 mg tablet Take 1 tablet by mouth daily at bedtime. 02/23/2024 ActiveStart: 10-03-2023 End: 55-73-8720qiaf 1 tablet by mouth at bedtimetraZODone (Desyrel) 50 MG tablet Indications: Primary insomnia Take 1 tablet (50 mg) by mouth at bedtime 30 tablet 5 10/28/2023 Activetriamcinolone acetonide 1 mg/ml topical lotion (2 sources)CorticosteroidStart: 06-14-2022 End: 77-90-9862vsrcnaketfous (Kenalog) 0.1 % lotion APPLY DAILY TO SKIN TO AFFECTED AREA TWICE A DAY FOR 2 WEEKS 04/20/2023 Discontinued valsartan 160 mg oral tablet (1 source)Angiotensin 2 Receptor Blockervalsartan (DIOVAN) 160 mg tablet Diovan CAPS Refills: 0 Active Activevarenicline 1 mg oral tablet (2 sources)Partial Cholinergic Nicotinic AgonistStart: 12-15-2022 End: 38-06-9754ckwd 1 tablet by mouth in the morningVarenicline Tartrate, Starter, (Chantix Starting Month ) 0.5 MG X 11 & 1 MG X 42 tablet therapy pack Indications: Cigarette nicotine dependence without complication Take 1 tablet by mouth in the morning. Take as directed.. 1 each 0 12/15/2022 04/20/2023 Discontinued Completed/Discontinued Medications MedicationDrug Class(es)DatesSig (Normalized)Sig (Original)acetaminophen 500 mg oral tablet (5 sources)Start: 10-29-2024 End: 70-96-6518cbjz 2 tablets by mouth three times dailyAcetaminophen [...] Nucleoside Analog DNA Polymerase InhibitorStart: 11-21-2024 End: 22-90-6400zzxq 1 tablet by mouth twice dailyAcyclovir 400 mg tablet Discontinued 400 MG PO Twice daily November 21, 2024 12:00am December 10, 2024 9:22amStart: 27-33-4950owpe 1 tablet by mouth twice dailyacyclovir (ZOVIRAX) 400 mg tablet Indications: Radiation-induced pulmonary fibrosis (HCC) , Malignant neoplasm of unspecified part of unspecified bronchus or lung (HCC) , Neuralgia Take 1 tablet by mouth two times a day. 60 tablet 2 11/09/2024 12:40 PM EDT 11/09/2024 ActiveCARBOplatin 650 mg in NaCl 0.9% 340 mL (PARAPLATIN) (2 sources)Start: 12-28-2023 End: 02-58-2807382 mg (rounded from 659 mg, Target AUC = 5), INTRAVENOUS, Administer over 30 Minutes, ONCE, 1 dose, On Tue12/28/23 at 1500, EXP: 12/29/2023 1120 RT Hazardous Chemotherapy Drug: Use appropriate PPE. Antineoplastic Irritant.Start: 12-07-2023 End: 25-88-8124393 mg (rounded from 659 mg, Target AUC = 5), INTRAVENOUS, Administer over 30 Minutes, ONCE, 1 dose, On Tue12/07/23 at 1500, EXP: 12/08/2023 1120 RT Hazardous Chemotherapy Drug: Use appropriate PPE. A ntineoplastic Irritant.CARBOplatin 800 mg in NaCl 0.9% 355 mL (PARAPLATIN) (1 source)Start: 11-16-2023 End: 00-12-1137202 mg (rounded from 808.2 mg, Target AUC = 6), INTRAVENOUS, Administer over 30 Minutes, ONCE, 1 dose, On Tue11/16/23 at 1430, EXP: 11/17/2023 1015 RT Hazardous Chemotherapy Drug: Use appropriate PPE. Antineoplastic Irritant.cephalexin 500 mg oral capsule (9 sources)Cephalosporin AntibacterialStart: 11-08-2019 End: 13-33-1448onvx 1 capsule by mouth every eight hoursCephalexin (Keflex) 500 mg capsule Discontinued 500 MG PO Q8H March 21, 2020 1:00am October 27, 2024 6:15pmcyclobenzaprine hydrochloride 10 mg oral tablet (15 sources)Muscle RelaxantStart: 09-10-2019 End: 47-22-6798eyee 1 tablet by mouth three times daily as needed for muscle spasmsCyclobenzaprine 10 mg tablet Discontinued 10 MG PO Three times daily as needed for back spasms November 08, 2019 12:00am March 21, 2020 11:09am 1 ml dexamethasone phosphate 10 mg/ml injection (1 source)CorticosteroidStart: 12-28-2023 End: 83-84-887099 mg, INTRAVENOUS, ONCE, 1 dose, On Tue12/28/23 at 1100, Administer over 5 minutes.dexAMETHasone 10 mg in NaCl 0.9% 50 mL (DECADRON) (2 sources)Start: 12-07-2023 End: 47-33-907827 mg, INTRAVENOUS, ONCE, 1 dose, On Tue12/07/23 at 1100, Refrigerate.Start: 11-16-2023 End: 53-29-979144 mg, INTRAVENOUS, ONCE, 1 dose, On Tue11/16/23 at 1030, Refrigerate.diphenhydrAMINE (3 sources)Histamine-1 Receptor AntagonistStart: 12-28-2023 End: 92-57-466449 mg, INTRAVENOUS, ONCE, 1 dose, On Tue12/28/23 at 1100Start: 12-07-2023 End: 26-44-887920 mg, INTRAVENOUS, ONCE, 1 dose, On Tue12/07/23 at 1100Start: 11-16-2023 End: 67-94-634979 mg, INTRAVENOUS, ONCE, 1 dose, On Tue11/16/23 at 1030 DOCOSAHEXANOIC ACID/EPA (FISH OIL ORAL) (8 sources) End: 10-25-5855tavd 1400 mg by mouth once dailyDOCOSAHEXANOIC ACID/EPA [...] with radiology test) (16 sources)Start: 12-28-2023 End: 95-97-2980bgdlstk contrast (will be provided with radiology test) [...] Discontinued (Discontinued by another Health Care Provider)Start: 58-63-2272duuhimc contrast (will be provided with radiology test) [...] injection (3 sources)Histamine-2 Receptor AntagonistStart: 12-28-2023 End: mg, INTRAVENOUS, ONCE, 1 dose, On Tue12/28/23 at 1100, REFRIGERATEStart: 12-07-2023 End: 02-39-548174 mg, INTRAVENOUS, ONCE, 1 dose, On Tue12/07/23 at 1100, REFRIGERATEStart: 11-16-2023 End: 60-75-112264 mg, INTRAVENOUS, ONCE, 1 dose, On Tue11/16/23 at 1030, REFRIGERATEfosaprepitant 150 mg injection (1 source)Start: 12-28-2023 End: 54-96-5258887 mg, INTRAVENOUS, Administer over 30 Minutes, ONCE, 1 dose, On Tue12/28/23 at 1100, Approx Total Volume: 115 mL Refrigeratefosaprepitant 150 mg in NaCl 0.9% 250 mL (EMEND) (2 sources)Start: 12-07-2023 End: 33-37-6683221 mg, INTRAVENOUS, Administer over 30 Minutes, ONCE, 1 dose, On Tue12/07/23 at 1100, Approximate Total Volume = 280 mL RefrigerateStart: 11-16-2023 End: 66-99-1248125 mg, INTRAVENOUS, Administer over 30 Minutes, ONCE, 1 dose, On Tue11/16/23 at 1030, Approximate Total Volume = 280 mL Refrigerate hydroCHLOROthiazide 50 mg oral tablet (20 sources)Thiazide DiureticStart: 08-02-2023 End: 95-99-4027kkht 1 tablet by mouth once dailyhydroCHLOROthiazide 50 mg tablet Take 50 mg by mouth once daily. 08/02/2023 07/20/2024 Discontinued(Discontinued by another Health Care Provider)Start: 06-17-2022 End: 33-00-3359tojd 1 tablet by mouth once daily in the morning hydroCHLOROthiazide (HYDRODiuril) 50 MG tablet Indications: Essential (primary) hypertension (CMS/HCC) TAKE 1 TABLET BY MOUTH EVERY DAY IN THE MORNING 90 tablet 3 09/13/2022 04/20/2023 DiscontinuedStart: 11-02-2019 End: 98-72-6635upqc 1 tablet by mouth once dailyHydrochlorothiazide 25 mg tablet Discontinued 25 MG PO Daily November 02, 2019 12:00am October 6:16pm hydroCHLOROthiazide 25 mg / valsartan 160 mg oral tablet (10 sources)Thiazide Diuretic, Angiotensin 2 Receptor Valentina End: 97-62-4765ltvk 1 tablet by mouth once dailyValsartan-Hydrochlorothiazide (DIOVAN HCT) 160-25 mg per tablet Take 1 tablet by mouth once daily. 10/26/2023 Discontinued End: 67-50-6347jaky 1 tablet by mouth in the morningvalsartan- hydroCHLOROthiazide (Diovan HCT) 160-25 MG tablet Take 1 tablet by mouth in the morning. 0 04/20/2023 Discontinuedindomethacin 75 mg extended release oral capsule (14 sources)Nonsteroidal Anti-inflammatory DrugStart: 08-27-2014 End: 56-24-0434ydew 1 capsule by mouth once daily at breakfastindomethacin ER 75 mg CR capsule Take 1 capsule by mouth daily with breakfast. 14 capsule 0 08/27/2014 11/10/2023 Discontinued (Discontinued by Patient)iv contrast (will be provided with radiology test) (20 sources)Start: 08-01-2024 End: 78-54-5824tpgrpa 1 dose intravenously onceiv contrast (will be [...] 1 each 08/01/2024 08/02/2024 ExpiredStart: 07-20-2024 End: 14-75-6132ybswqz 1 dose intravenously onceiv contrast (will be [...] 1 each 07/20/2024 07/21/2024 ExpiredStart: 07-20-2024 End: 43-76-8575grzkmt 1 dose intravenously onceiv contrast (will be [...] 1 each 07/20/2024 07/21/2024 ActiveStart: 12-28-2023 End: 56-15-3123co contrast (will be provided with radiology test) [...] Discontinued (Discontinued by another Health Care Provider)Start: 77-53-7359tz contrast (will be provided with radiology test) [...] mg oral tablet (20 sources)l-ThyroxineStart: 06-12-2018 End: 58-34-8139ckiq 1 tablet by mouth once dailyLevothyroxine (Synthroid) 175 mcg tablet Discontinued 175 MCG PO Daily November 02, 2019 12:00am November 27, 2024 3:39pmlevothyroxine (SYNTHROID, LEVOTHROID) 100 MCG tablet Synthroid 100 MCG Oral Tablet Refills: 0 Active Activelosartan potassium 100 mg oral tablet (20 sources)Angiotensin 2 Receptor BlockerStart: 11-02-2019 End: 94-07-6870lrgi 1 tablet by mouth once dailyLosartan 100 mg tablet Discontinued 100 MG PO Daily November 02, 2019 12:00am October 27, 2024 6:17pm take 2 tablets by mouth once dailylosartan (COZAAR) 50 mg tablet Take 100 mg by mouth daily. Activenivolumab 360 mg in NaCl 0.9% 146 mL (OPDIVO) (3 sources)Start: 12-28-2023 End: 32-43-8073071 mg, INTRAVENOUS, Administer over 30 Minutes, ONCE, 1 dose, On Tue12/28/23 at 1130, EXP: 12/28/20231909 RT Administer with 0.2 micron filter. Protect from light if utilizing refrigerator 7 day expiration.Start: 12-07-2023 End: 00-46-7237258 mg, INTRAVENOUS, Administer over 30 Minutes, ONCE, 1 dose, On Tue12/07/23 at 1130, EXP: 12/07/2023 191 RT Administer with 0.2 micron filter. Protect from light if utilizing refrigerator 7 day expiration.Start: 11-16-2023 End: 95-17-2856851 mg, INTRAVENOUS, Administer over 30 Minutes, ONCE, 1 dose, On Tue11/16/23 at 1100, EXP: 11/16/2023 1815 RT Administer with 0.2 micron filter. Protect from light if utilizing refrigerator 7 day expiration.nivolumab 480 mg in NaCl 0.9% 158 mL (OPDIVO) (3 sources)Start: 07-20-2024 End: 27-21-2189148 mg, INTRAVENOUS, Administer over 30 Minutes, ONCE, 1 dose, On Tue07/20/24 at 1530, Approx TotalVolume: 158 mL EXP: 07/20/2024 2330 RT Administer with 0.2 micron filter. Protect from light if utilizing refrigerator 7 day expiration.Start: 06-15-2024 End: 99-01-0709618 mg, INTRAVENOUS, Administer over 30 Minutes, ONCE, 1 dose, On Tue06/15/24 at 1500, Approx TotalVolume: 158 mL EXP: 2230 06/15/24 Administer with 0.2 micron filter. Protect from light if utilizingrefrigerator 7 day expiration.Start: 05-18-2024 End: 32-25-5332559 mg, INTRAVENOUS, Administer over 30 Minutes, ONCE, 1 dose, On Tue05/18/24 at 1400, Approx TotalVolume: 158 mL EXP: 05/18/2024 2150 RT Administer with 0.2 micron filter. Protect from light if utilizing refrigerator 7 day expiration.oxyCODONE hydrochloride 5 mg oral tablet (14 sources)Opioid AgonistStart: 10-29-2024 End: 95-53-0087trvp 5-10 mg by mouth every six hoursOxycodone 5 mg tablet Discontinued 5 - 10 MG PO Every 6 hours 30 October 29, 2024 November 21, 2024 1:50pmStart: 03-21-2020 End: 46-92-9227kjco 5-10 mg by mouth every six hours as needed for painOxycodone 5 mg capsule Discontinued 5 - 10 MG PO Q6H as needed for pain 60 March 21, 2020 March 21, 2020 2:16pmStart: 03-21-2020 End: 35-95-7201jftv 5-10 mg by mouth every six hours as needed for painOxycodone 5 mg capsule Discontinued 5 - 10 MG PO Q6H as needed for pain 60 March 21, 2020 October 27, 2024 6:17pmStart: 03-21-2020 End: 96-53-8376inuq 5-10 mg by mouth every six hours as needed for painOxycodone 5 mg capsule Discontinued 5 - 10 MG PO Q6H as needed for pain 60 March 21, 2020 October 27, 2024 6:17pmStart: 30-12-2209byvx 5-10 mg by mouth every six hoursOxycodone Active 5 - 10 MG PO Q6H 60 8 November 08, 2019 7:04am PACLitaxel 330 mg in NaCl 0.9% 595 mL (TAXOL) (2 sources)Start: 12-28-2023 End: 07-01-0038347 mg (rounded from 336 mg = 175 mg/m2 1.92 m2 Treatment Plan BSA from Recorded weight), INTRAVENOUS, at 198.33 mL/hr, Administer over 3 Hours, ONCE, 1 dose, On Tue12/28/23 at 1200, EXP: 1100 01/07/24 REF Hazardous Chemotherapy Drug: Use appropriate PPE. Antineoplastic Irritant with Vesicant Potential. Administer with non-DEHP 0.2 micron filter and tubing.Start: 12-07-2023 End: 23-44-9009369 mg (rounded from 336 mg = 175 [...] 604 mL (TAXOL) (1 source)Start: 11-16-2023 End: 37-51-5848175 mg (200 mg/m2 1.92 m2 Treatment Plan BSA from Recorded weight), INTRAVENOUS, at 201.33 mL/hr, Administer over 3 Hours, ONCE, 1 dose, On Tue11/16/23 at 1130, EXP: 11/17/2023 1615 RT Hazardous Chemotherapy Drug: Use appropriate PPE. Antineoplastic Irritant with Vesicant Potential. Administer withnon-DEHP 0.2 micron filter and tubing.5 ml palonosetron 0.05 mg/ml injection (3 sources)Serotonin-3 Receptor AntagonistStart: 12-28-2023 End: 40.25 mg, INTRAVENOUS, ONCE, 1 dose, On Tue12/28/23 at 1100, Flush IV line with NS prior to and following administration.Start: 12-07-2023 End: 40.25 mg, INTRAVENOUS, ONCE, 1 dose, On Tue12/07/23 at 1100, Flush IV line with NS prior to and following administration.Start: 11-16-2023 End: 40.25 mg, INTRAVENOUS, ONCE, 1 dose, On Tue11/16/23 at 1030, Flush IV line with NS prior to and following administration.microencapsulated potassium chloride 20 meq extended release oral tablet (20 sources)Start: 06-15-2024 End: 24-25-3616gngt 1 tablet by mouth once daily, then take 1 tablet by mouth twice daily, then take 1 tablet by mouth once dailypotassium chloride ER (KLOR- CON) 20 mEq tablet Take 1 tablet by mouth once daily. Take 1 tablet by mouth twice daily x3 days then take 1 tablet by mouth daily 60 tablet 1 06/15/2024 08/16/2024 DiscontinuedStart: 02-24-2024 End: 14-51-4888edbm 1 tablet by mouth twice dailypotassium chloride ER (KLOR- CON) 20 mEq tablet Indications: Malignant neoplasm of lung, unspecified laterality, unspecified part of lung (HCC) , Abnormal blood chemistry Take 1 tablet by mouth two times a day for 5 days. 10 tablet 02/24/2024 02/29/2024 ActiveStart: 12-28-2023 End: 03-93-8846swee 2 tablets by mouth once dailypotassium chloride [...] oral tablet (19 sources)HMG-CoA Reductase Inhibitor End: 42-95-8472weld 1 tablet by mouth once dailyrosuvastatin (CRESTOR) 40 mg tablet Take 40 mg by mouth once daily. 11/10/2023 Discontinued (Discontinued by Patient)rosuvastatin (CRESTOR) 5 mg tablet Crestor TABS Refills: 0 Active Active End: 77-38-6112domk 1 tablet by mouth once dailyrosuvastatin (CRESTOR) 10 mg tablet Take 10 mg by mouth daily. Activevitamin b12 0.5 mg oral tablet (5 sources)Vitamin H89Vezrv: 11-02-2019 End: 28-26-7542qkry 1 tablet by mouth once dailyCyanocobalamin (Vitamin B-12) (Vitamin B-12) 500 mcg Tablet Discontinued 500 MCG PO Daily November 02, 2019 12:00am March 21, 2020 11:07amvitamin e 90 mg oral capsule (20 sources)Start: 03-21-2020 End: 46-76-7705dskm 1 capsule by mouth once dailyVitamin E [...] by mouth in the morning. Active End: 58-07-9991hxeafjp E, dl,tocopheryl acet, (VITAMIN E, DL, ACETATE,) [...] (20 sources)Atopic dermatitis; Translations: [Other atopic dermatitis]Onset: 364304-99-1070JkwfbioOchqxmf disorders (20 sources)Panic disorder; Translations: [Panic disorder [episodic paroxysmal anxiety]]Onset: 116944-85-1405JleoifaTucplf and peripheral arterial embolism or thrombosis (6 sources)Bilateral atheroembolism of lower limbs; Translations: [Atheroembolism of bilateral lower extremities]Onset: ChronicAttention-deficit, conduct, and disruptive behavior disorders (3 sources)Attention deficit hyperactivity disorder, combined type; Translations: [Attention-deficit hyperactivity disorder, combined type] 38-09-2776EgilwsoYmzgxp of bronchus; lung (20 sources)Malignant neoplasm of upper lobe of left lung; Translations: [Malignant neoplasm of upper lobe, left bronchus or lung]Onset: 10-12-2023 86-26-0075AtsaaleRtwfwq of bronchus; lung (1 source)History of malignant neoplasm of thoracic cavity structure; Translations: [Personal history of other malignant neoplasm of bronchus and lung]82-03-9932JbtevoogZlzkwu; other respiratory and intrathoracic (7 sources)Malignant neoplasm of lower respiratory tract; Translations: [Malignant neoplasm of trachea]Onset: 615396-83-9048UhpxehlXsrexfuw (20 sources)Cataract; Translations: [Unspecified cataract]Onset: 04-29-2016 18-18-9540LpanmskSbsozox obstructive pulmonary disease and bronchiectasis (20 sources)Chronic obstructive lung disease; Translations: [Chronic obstructive pulmonary disease, unspecified]Onset: 630869-77-2844IheahcfThuxttdfcyhhh of surgical procedures or medical care (20 sources)Hypothyroidism following radioiodine therapy; Translations: [Postprocedural hypothyroidism]Onset: 330356-36-9393ItedqurNqmphzkpwo associated with dizziness or vertigo (2 sources)Dizziness and giddiness; Translations: [Dizziness and giddiness] Onset: 97-93-8502EdyknvgoLnajmsdofo and other anemia (1 source)Anemia; Translations: [Anemia, unspecified]19-69-1017JbvnugewTebetlzti of lipid metabolism (20 sources)Mixed hyperlipidemia; Translations: [Mixed hyperlipidemia]Onset: 066900-18-1034TjcfbfyS Codes: Adverse effects of medical drugs (1 source)Adverse effect of antineoplastic and immunosuppressive drugs, initial encounter; 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)]Onset: 44-01-0564FbkhusmyQddeipoxe hypertension (20 sources)Essential hypertension; Translations: [Essential (primary) hypertension]Onset: 11-23-2010 Resolved: 629492-37-6512YgwayknHjeungty; including migraine (2 sources)Headache; including migraine; Translations: [Headache, unspecified] Onset: 47-66-2227Myokbgzmufg of prostate (20 sources)Benign prostatic hyperplasia; Translations: [Benign prostatic hyperplasia with lower urinary tract symptoms]Onset: 12-23-2020 Resolved: 357476-07-0866BjdzrctPzvygtgciyfui and screening for infectious disease (4 sources)Contact with and (suspected) exposure to other viral communicable diseases; Translations: [CONTCT EXPS OTH VIRL COMMUNICABL DZ]Onset: 01-24-2020 EpisodicLung disease due to external agents (5 sources)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; Translations: [Chronic and other pulmonary manifestations dueto radiation]Onset: ChronicMalaise and fatigue (20 sources)Chronic fatigue syndrome; Translations: [Chronic fatigue syndrome] Onset: 028450-43-3922InjtghlXpasmxoxubret mental health disorders (20 sources)Primary insomnia; Translations: [Primary insomnia]Onset: 10-03-2023 90-87-6243OfyzcyoJnuozgjkbum chest pain (8 sources)Chest pain; Translations: [Chest pain, unspecified]Onset: 10-27-2024 08-31-5119BqwqqrosMjxkikgue or stenosis of precerebral arteries (20 sources)Bilateral stenosis of carotid arteries; Translations: [Occlusion and stenosis of bilateral carotid arteries]Onset: 09-22-2020 Resolved: 261505-21-2002EvcnegqRdnfdxgmzsckyt (20 sources)Osteoarthritis of joint of left shoulder region; Translations: [Primary osteoarthritis, left shoulder]Onset: 12-15-2022 Resolved: 332245-96-3872PqmjgxyLegje aftercare (3 sources)Under care of palliative care physician; Translations: [Encounter for palliative care]71-08-6860QjrvztpmDodzr aftercare (1 source)H/O: malignant neoplasm; Translations: [Encounter for follow-up examination after completed treatment for malignant neoplasm]05-50-4823Emfqehfu Other aftercare (1 source)Long-term current use of systemic steroid; Translations: [prison (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]48-60-0123WtplaawpJpnbw aftercare (1 source)Encounter for palliative care; Translations: [Palliative care by specialist]Onset: 59-14-6697TkvxcagwKtnaf aftercare (1 source)prison (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; Translations: [prison (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]Onset: 25-79-8891EvdqamkwUhukb aftercare (1 source)Encounter for follow-up examination after completed treatment for malignant neoplasm; Translations:[Encounter for follow-up examination after completed treatment for malignant neoplasm]Onset: 62-75-4198LodgdvnrSzqlu connective tissue disease (4 sources)Impingement syndrome of right shoulder region; Translations: [Impingement syndrome of right shoulder]01-98-0168WscjytvkFwwhk connective tissue disease (2 sources)Muscle finding; Translations: [Myalgia, unspecified site]05-03-2024 EpisodicOther connective tissue disease (1 source)Neuralgia; Translations: [Neuralgia and neuritis, unspecified] 54-29-1055GpszjobeHtubw connective tissue disease (1 source)Neuralgia and neuritis, unspecified; Translations: [Neuralgia]Onset: 49-11-6956BhlqptmuOwjfk ear and sense organ disorders (20 sources)Mixed conductive AND sensorineural hearing loss; Translations: [Mixed conductive and sensorineural hearing loss, unspecified]Onset: 04-29-2016 25-99-2908XffnjfeNqejx ear and sense organ disorders (3 sources)Tinnitus, unspecified ear; Translations: [Tinnitus, unspecified ear] Onset: 54-62-7859TkcefnuuYpyop lower respiratory disease (2 sources)Nodule of lung; Translations: [Solitary pulmonary nodule]10-24-2023 EpisodicOther lower respiratory disease (1 source)Solitary pulmonary nodule; Translations: [Lung nodule]Onset: 02-36-2776BcuogvvbCyfwr lower respiratory disease (2 sources)Shortness of breath; Translations: [Shortness of breath]Onset: 32-68-4217XnaaojptAyjfg lower respiratory disease (2 sources)Dyspnea; Translations: [Shortness of breath]77-24-6960RafgouglWmezb male genital disorders (20 sources)Male erectile dysfunction, unspecified; Translations: [Impotence of organic origin]Onset: 232450-67-0853UwxwweyFfvxc nervous system disorders (20 sources)Chronic pain syndrome; Translations: [Chronic pain syndrome]Onset: 04-14-2016 Resolved: 712350-58-3919NjljmmaAbifv nervous system disorders (1 source)Chronic pain; Translations: [Other chronic pain]10-67-0858LndqadcXyjza nervous system disorders (2 sources)Neuropathy; Translations: [Drug-induced polyneuropathy]11-29-2023 ChronicOther nervous system disorders (20 sources)Neuropathy caused by chemical substance; Translations: [Drug-induced polyneuropathy]Onset: 271105-76-9936ZxlarciCswxy nervous system disorders (1 source)Drug-induced polyneuropathy; 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)]Onset: 20-45-4490LjxuurrUvsim nervous system disorders (1 source)Paraneoplastic neuromyopathy and neuropathy; 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)]Onset: 21-14-0269YctdxzdQlfnu non-traumatic joint disorders (20 sources)Rotator cuff arthropathy of right shoulder; Translations: [Other specific arthropathies, not elsewhere classified, right shoulder]Onset: 918542-80-6509DyjfonyFpsbg non-traumatic joint disorders (4 sources)Hip pain; Translations: [Pain in right hip]82-31-3624GrgxwxwiPdgmb non-traumatic joint disorders (2 sources)Pain in right shoulder; Translations: [Pain in joint, shoulder region]22-55-5876BwpdlhuwZkmwf non-traumatic joint disorders (2 sources)Pain in left shoulder; Translations: [Pain in joint, shoulder region] 20-36-5781ClrgmzhkMikch upper respiratory disease (20 sources)Allergic rhinitis due to pollen; Translations: [Allergic rhinitis due to pollen]Onset: 794125-14-5809BzruebfOczbbjchmc and visceral atherosclerosis (20 sources)Peripheral vascular disease, unspecified; Translations: [Peripheral vascular disease, unspecified]Onset: 925180-07-3900DwqykvzSvworfwp; pneumothorax; pulmonary collapse (11 sources)Pleural effusion; Translations: [Pleural effusion, not elsewhere classified]Onset: 263841-29-4848TtdhukywGwvqqlmz codes; unclassified (3 sources)Insomnia co-occurrent and due to medical condition; Translations: [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 condition]86-16-0699PuieukwDyvgxjyv codes; unclassified (1 source)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 condition; Translations: [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 condition]Onset: 70-11-7589UexcmsiWufedokf codes; unclassified (20 sources)Patient encounter status; Translations: [Immunotherapy]Onset: 274146-93-9353KpiqueiuGczxwqgyd and history of mental health and substance abuse codes (1 source)Ex-smoker; Translations: [Personal history of nicotine dependence] 81-38-1159IoqwlckxYosiixespue; intervertebral disc disorders; other back problems (20 sources)Lumbar disc prolapse with radiculopathy; Translations: [Degeneration of cervical intervertebral disc]Onset: 10-23-2019 Resolved: 325808-79-0945JwixsupCuswynp and strains (2 sources)Tendon rupture - hip; Translations: [Strain of muscle, fascia and tendon of right hip, subsequent encounter]13-13-6710KnofpchvWblpmdi disorders (1 source)Disorder of thyroid gland; Translations: [Other specified disorders of thyroid]85-94-6647VyuwvwbdDculfxvna cerebral ischemia (20 sources)Transient cerebral ischemia; Translations: [Transient cerebral ischemic attack, unspecified]Onset: 628918-67-3205FjzourqSztzzlbucdfo (1 source)Extremity PainOnset: 82-59-6832Ljvpcggtfcny (2 sources)New PatientOnset: 89-73-3703Hrfpkdsjbdsa (11 sources)Patient on antidepressant monitoring planOnset: 568626-33-8361 Unclassified (1 source)Medical ScreeningOnset: 86-73-5881Baztjpsmifco (1 source)Pre-op ExamOnset: 47-58-9613Ktaqlvjzzqln (6 sources)Post hospital appointment. Please call to reschedule if needed. Unclassified (1 source)Lung CancerOnset: 98-69-6645Bjulgxbdcary (1 source)Immunotherapy; Translations: [Immunotherapy]Onset: 19-36-1604Txhhb infection (6 sources)Herpes zoster; Translations: [Zoster without complications]Onset: 754882-61-2805Cjsdcfww Past or Other Problems Problem ClassificationProblemDateDocumented DateEpisodic/ChronicAcute bronchitis (20 sources)Acute infective bronchitis; Translations: [Acute bronchitis due to other specified organisms]Onset: 05-02-2023 Resolved: 832578-07-9022JxdkarluAtbsgpqqmwcklt/social admission (20 sources)Unemployed; Translations: [Unemployment, unspecified]Onset: 04-29-2016 Resolved: 544736-52-7086IwaexhebDkiyytim mellitus without complication (20 sources)Prediabetes; Translations: [Prediabetes]Onset: 10-15-2020 Resolved: 990316-31-1025UomxncweOrueiaxe; including migraine (20 sources)Headache disorder; Translations: [Headache disorder]Onset: 802342-95-7636EvyubdctExdmbjbcoek (20 sources)External hemorrhoids; Translations: [Residual hemorrhoidal skin tags]Onset: 04-29-2016 Resolved: 985861-93-5650WydcbzeoMtpmrmcmab infection (20 sources)Gastrointestinal infection; Translations: [Infectious gastroenteritis and colitis, unspecified]Onset: 07-17-2018 Resolved: 905143-55-6703EtrptrygFmpgwoy and fatigue (20 sources)Malaise and fatigue; Translations: [Other malaise]Onset: 09-27-2023 92-99-2510KuricidsTqlg disorders (20 sources)Mood disordersOnset: Nausea and vomiting (4 sources)Nausea; Translations: [Nausea]Onset: 068612-88-6004Aikydynj Neoplasms of unspecified nature or uncertain behavior (5 sources)Paraneoplastic neuropathy; 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]Onset: 622305-81-0701DtovgyguXetnmgt system congenital anomalies (20 sources)Encephalocele of other sites; Translations: [Temporal encephalocele] Onset: 06-18-2018 Resolved: 304843-16-9875MdqeupaSwfko aftercare (1 source)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; Translations: [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 DRUG THERAPY]Onset: 01-29-7594IqtiqfujEzger aftercare (20 sources)Long-term current use of drug therapy; Translations: [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]Onset: 596938-80-4805HjzshekhBexav circulatory disease (20 sources)History of cerebrovascular accident without residual deficits; Translations: [Personal history of transient ischemic attack (TIA), and cerebral infarction without residual deficits]Onset: 04-29-2016 Resolved: 771500-45-4006OwtamcymTspvd circulatory disease (20 sources)History of cerebrovascular disease; Translations: [Personal history of transient ischemic attack (TIA), and cerebral infarction without residual deficits]Onset: 12-15-2022 Resolved: 319706-39-2143CvtzkkdhQljos connective tissue disease (20 sources)History of cervical spine fusion; Translations: [Arthrodesis status] Onset: 535692-10-9558EkehwgwnIhame connective tissue disease (20 sources)Impingement syndrome of left shoulder region; Translations: [Impingement syndrome of left shoulder]Onset: 416296-00-0364VtqzhlwbNnxpt connective tissue disease (20 sources)Trochanteric bursitis of right hip; Translations: [Trochanteric bursitis, right hip]Onset: 586164-11-0304AbfxycbwCrlxx diseases of bladder and urethra (20 sources)Disorder of bladder; Translations: [Bladder disorder, unspecified] Onset: 06-13-2020 Resolved: 286000-12-9864PadwxzqZixic ear and sense organ disorders (20 sources)Otorrhea of left ear; Translations: [Otorrhea, left ear]Onset: 08-01-2019 Resolved: 445003-18-6402SrliqthiPihjr ear and sense organ disorders (20 sources)Tinnitus of left ear; Translations: [Tinnitus, left ear]Onset: 05-28-2018 Resolved: 277328-45-4855EwgpfqqbJdnlr gastrointestinal disorders (20 sources)Constipation; Translations: [Constipation, unspecified]Onset: 10-15-2019 Resolved: 174943-04-8375QjusauhzYwycn gastrointestinal disorders (20 sources)H/O: gastrointestinal disease; Translations: [Personal history of other diseases of the digestive system]Onset: 368104-74-1462PxfoelvnFgnpd inflammatory condition of skin (20 sources)Seborrheic dermatitis; Translations: [Seborrheic dermatitis, unspecified]Onset: 686965-21-5282VthtdxrsDzfvd lower respiratory disease (3 sources)Other nonspecific abnormal finding of lung field; Translations: [Other nonspecific abnormal findingof lung field]Onset: 85-20-0734AqvrcrowBolhk lower respiratory disease (18 sources)Lung mass; Translations: [Other nonspecific abnormal finding of lung field]Onset: 09-28-2023 Resolved: 506795-55-9462CcdybagyAtrka nervous system disorders (20 sources)Difficulty walking; Translations: [Difficulty in walking, not elsewhere classified]Onset: 12-03-2019 Resolved: 725475-57-9877LtiudcvVamyf nervous system disorders (20 sources)Paresthesia of right lower limb; Translations: [Paresthesia of skin] Onset: 283534-75-5967DtnjxbkjMkpnr nervous system disorders (20 sources)Ataxia; Translations: [Ataxia, unspecified]Onset: 04-29-2016 Resolved: 193992-31-7081AthpircqNlreu nervous system disorders (20 sources)Abnormal reflex; Translations: [Abnormal reflex]Onset: 02-16-2012 Resolved: 326662-31-7895HydvtsczUwqku nervous system disorders (20 sources)Impairment of balance; Translations: [Other abnormalities of gait and mobility]Onset: 04-27-2016 Resolved: 457075-24-1288WkmzkybuHsoqm nervous system disorders (20 sources)Skin sensation disturbance; Translations: [Unspecified disturbances of skin sensation]Onset: 06-30-2020 Resolved: 412087-80-5616MwiaztdoFxmno nervous system disorders (20 sources)Abnormal gait; Translations: [Unsteadiness on feet]Onset: 10-12-2023 21-84-2914WuxejscsQqhsm non-epithelial cancer of skin (20 sources)History of malignant neoplasm of skin; Translations: [Personal history of other malignant neoplasm of skin]Onset: 026497-22-6040Rejjjgdl Other non-traumatic joint disorders (20 sources)Soft tissue lesion of shoulder region; Translations: [Other specified joint disorders, unspecified shoulder]Onset: EpisodicOther nutritional; endocrine; and metabolic disorders (20 sources)Body mass index 30+ - obesity; Translations: [Body mass index (BMI) 30.0-30.9, adult]Onset: 05-15-2019 Resolved: 800753-66-0287YlemlstJqlrm screening for suspected conditions (not mental disorders or infectious disease) (20 sources)Decreased testosterone level ; Translations: [Other specified abnormal findings of blood chemistry]Onset: 770855-15-6836ZnnjmljdAmzqenbi codes; unclassified (20 sources)Family history of malignant neoplasm of lung; Translations: [Family history of malignant neoplasm of trachea, bronchus and lung]Onset: 08-01-2019 18-30-5563DwkgklvsKuzbngey codes; unclassified (20 sources)Family history of prostate cancer; Translations: [Family history of malignant neoplasm of prostate]Onset: 03-23-2018 Resolved: 367961-30-2057CblffpgtUpzggkdp codes; unclassified (20 sources)Difficulty sleeping ; Translations: [Sleep disorder, unspecified] Onset: 10-14-2020 Resolved: 975268-11-5188CzgwxcolQuybqvon codes; unclassified (20 sources)Postprocedural state finding; Translations: [Other specified postprocedural states]Onset: 12-15-2022 Resolved: 340996-64-4237OskemkghLdczaqts codes; unclassified (20 sources)History of craniotomy; Translations: [Other specified postprocedural states]Onset: 761377-34-4342WhbiyqqvVlrlosollac; intervertebral disc disorders; other back problems (20 sources)Low back pain; Translations: [Radiculopathy, lumbar region]Onset: 04-29-2016 Resolved: 552450-44-1026RupqynfeBeorpwr on above:Problem List clean-up per request of Phys. EHR CmteSubstance-related disorders (20 sources)Nicotine dependence, cigarettes, uncomplicated; Translations: [Cigarette smoker ]Onset: 04-14-2016 Resolved: 490018-56-5430AaiqxhbYqxingr (8 sources)Syncope and collapse; Translations: [Syncope and collapse]Onset: 708108-31-6748PehaokeyEzzqeny disorders (20 sources)Hypothyroidism; Translations: [Hypothyroidism, unspecified]Onset: 11-23-2010 Resolved: 331321-18-1318ItddxpgEtnwgcgbmqmt (20 sources)Onset: 180573-17-0046Lwlvczlnpzyz (1 source)Patient encounter afumfi71-70-6146 Results Test NameValueInterpretationReference RangeFacilityCNPNon 31-85-8075YQTVLygnyi [facility] HospitalBasophils Auto (Bld) [#/Vol]Ordered By: Lo Hancock on 26-55-8750Xuobilitq (Bld) [#/Vol]0.04 10*3/uL<0.11[facility] HospitalBasophils/100 WBC Auto (Bld)Ordered By: Lo Hancock on 74-28-9461Ffbketycb/100 WBC (Bld)0.5 %[facility] HospitalBlood manual differential comment interpretation narrativeOrdered By: Lo Hancock on 30-84-4369Mvvmjg differential comment Jean (Bld) [Interp]AutoMagruder Memorial HospitalCB W Auto Differential panel (Bld)on 77-79-1560Hoxetaeds (Bld) [#/Vol]0.04 10*3/uLNormal<0.11CFulton County Health Center on above: Order Comment: Specimen Type: BLOOD SPECIMENOrdering Facility: [facility] Address:[address] [place], [place] [address]Performed By: #### 17653- 8 ####[facility] [id number] [place], [place] [address]Cxufgoudb/100 WBC (Bld)0.5 %NormalUC [facility] Hospital on above:Order Comment: Specimen Type: BLOOD SPECIMENOrdering Facility: [facility] Address:[address] [place], [place] [address]Performed By: #### 65134-8 ####[facility] [id number] [place], [place] [address]Hwouptyoaxbi cell count method Nom (Bld)AutoNormalCleveland Clinic ClevelandComment on above:Order Comment: Specimen Type: BLOOD SPECIMENOrdering Facility: [facility] Address:[address] [place], [place] [address]Performed By: #### 97881-9 ####[facility] [id number] [place], [place] [address]Knegxpeveds (Bld) [#/Vol]0.05 10*3/uLNormal<0.46Bar[facility] HospitalComvibra hospital of [facility] [place] on above:Order Comment: Specimen Type: BLOOD SPECIMENOrdering Facility: [facility] Address:[address] [place], [place] [address]Performed By: #### 71817-1 ####[facility] LAB[facility] [id number] [place], [place] [address]Sfiolngvsvy/100 WBC (Bld)0.6 %NormalBarberton Citizens HospitalComment on above:Order Comment: Specimen Type: BLOOD SPECIMENOrdering Facility: [facility] Address:[address] [place], [place] [address]Performed By: #### 34624-4 ####[facility] LAB[facility] [id number] [place], [place] [address]Okaxkxgpoik distribution width (RBC) [Ratio]16.4 %High 11.5-15.0Bar[facility] HospitalComvibra hospital of [facility] [place] on above:Order Comment: Specimen Type: BLOOD SPECIMENOrdering Facility: [facility] Address:[address] [place], [place] [address]Performed By: #### 38329-3 ####[facility] [id number] [place] [address] Hematocrit (Bld) [Volume fraction]37.6 %Low39.0-51.0[facility] Comment on above:Order Comment: Specimen Type: BLOOD SPECIMENOrdering Facility: [facility] Address:[address] [place] [address] Performed By: #### 21149-6 ####[facility] [id number] [place], [place] [address]Hpexingeec (Bld) [Mass/Vol]12.6 g/dLLow13.0-17.0[facility] on above:Order Comment: Specimen Type: BLOOD SPECIMENOrdering Facility: [facility] Address:[address] [place], [place] [address]Performed By: #### 83006-3 ####[facility] [id number] [place], [place] [address]Sxhgtevt granulocytes (Bld) [#/Vol]0.16 10*3/uLHigh<0.10 [facility] on above:Order Comment: Specimen Type: BLOOD SPECIMENOrdering Facility: [facility] Address:[address] [place], [place] [address]Performed By: #### 77332-1 ####[facility] LAB[facility] [id number] [place], [place] [address]Pvemzdpm granulocytes/100 WBC (Bld)1.9 %NormalUC [facility] Hospital on above: Order Comment: Specimen Type: BLOOD SPECIMENOrdering Facility: [facility] Address:[address] [place], [place] [address]Performed By: #### 39571- 8 ####[facility] SYSTEMSMARIBEL [facility] LABCLIA [id number] [place], [place] [address]Drxofrayvfc (Bld) [#/Vol]0.84 10*3/uLLow1.00-4.00 [facility] on above:Order Comment: Specimen Type: BLOOD SPECIMENOrdering Facility: [facility] Address:[address] [place], [place] [address]Performed By: #### 11593-1 ####[facility] [id number] [place], [place] [address]Gvdaatxchxe/100 WBC (Bld)10.2 %NormalUC [facility] Hospital on above:Order Comment: Specimen Type: BLOOD SPECIMENOrdering Facility: [facility] Address:[address] [place], [place] [address]Performed By: #### 98794-4 ####[facility] [id number] [place], [place] [address]FYB (RBC) [Entitic mass]29.9 kdYajuwg44.0-34.0[facility] on above:Order Comment: Specimen Type: BLOOD SPECIMENOrdering Facility: [facility] Address:[address] [place], [place] [address]Performed By: #### 27023-7 ####[facility] [id number] [place], [place] [address]DIPV (RBC) [Mass/Vol]33.5 g/fUXonqdk22.5-36.0[facility] on above: Order Comment: Specimen Type: BLOOD SPECIMENOrdering Facility: [facility] Address:[address] [place], [place] [address]Performed By: #### 87360- 8 ####[facility] [id number] [place], [place] [address]KAU (RBC) [Entitic vol]89.3 tZSmjjeq38.0-100.0[facility] on above:Order Comment: Specimen Type: BLOOD SPECIMENOrdering Facility: [facility] Address:[address] [place], [place] [address]Performed By: #### 81477-0 ####[facility] [id number] [place], [place] [address]Pxsfgksdo (Bld) [#/Vol]0.31 10*3/uLNormal<0.87[facility] on above:Order Comment: Specimen Type: BLOOD SPECIMENOrdering Facility: [facility] Address:[address] [place], [place] [address]Performed By: #### 62525- 8 ####[facility] [id number] [place], [place] [address]Uskjzftgh/100 WBC (Bld)3.8 %NormalUC [facility] Hospital on above:Order Comment: Specimen Type: BLOOD SPECIMENOrdering Facility: [facility] Address:[address] [place], [place] [address]Performed By: #### 49824-5 ####[facility] [id number] [place], [place] [address]Csbamvvcazw (Bld) [#/Vol]6.81 10*3/uLNormal1.45-7.50[facility] on above:Order Comment: Specimen Type: BLOOD SPECIMENOrdering Facility: [facility] Address:[address] [place], [place] [address]Performed By: #### 67924-0 ####[facility] [id number] [place], [place] [address]Yalmtaaqopt/100 WBC (Bld)83.0 %NormalUC [facility] Hospital on above:Order Comment: Specimen Type: BLOOD SPECIMENOrdering Facility: [facility] Address:[address] [place], [place] [address]Performed By: #### 19646-2 ####[facility] [id number] [place], [place] [address]Veqarliph RBC (Bld) [#/Vol] 10*3/uLNormal<0.01[facility] on above:Order Comment: Specimen Type: BLOOD SPECIMENOrdering Facility: [facility] Address:[address] [place], [place] [address]Performed By: #### 19075-9 ####[facility] [id number] [place], [place] [address]Vkflzwfhh RBC/100 WBC (Bld) [Ratio]0.0 /100 WBCNormal [facility] on above:Order Comment: Specimen Type: BLOOD SPECIMENOrdering Facility: [facility] Address:[address] [place], [place] [address]Performed By: #### 16752-7 ####[facility] [id number] [place], [place] [address]Bccjubfu mean volume (Bld) [Entitic vol]9.4 fLNormal9.0-12.7CFulton County Health Center on above:Order Comment: Specimen Type: BLOOD SPECIMENOrdering Facility: [facility] Address:[address] [place] [address] Performed By: #### 98953-6 ####[facility] [id number] [place], [place] [address]Cfsezkghq (Bld) [#/Vol]265 10*3/pIAqhoem817-120EuersbhvqUC [facility] on above:Order Comment: Specimen Type: BLOOD SPECIMENOrdering Facility: [facility] Address:[address] [place], [place] [address]Performed By: #### 26059-8 ####[facility] [id number] [place], [place] [address]ZVX (Bld) [#/Vol]4.21 10*6/uLNormal4.20-6.00[facility] on above:Order Comment: Specimen Type: BLOOD SPECIMENOrdering Facility: [facility] Address:[address] [place], [place] [address]Performed By: #### 29975-0 ####[facility] [id number] [place], [place] [address]DAI (Bld) [#/Vol]8.21 10*3/uLNormal3.70-11.00[facility] on above: Order Comment: Specimen Type: BLOOD SPECIMENOrdering Facility: [facility] Address:[address] [place], [place] [address]Performed By: #### 61276- 8 ####[facility] [id number] [place], [place] [address]XMRHAQwo 90-77-6813GDTEXJWyriksZncidjjrqOhioHealth metabolic 2000 panelon 25-99-2216Ndgbyiv [Mass/Vol]4.7 g/dLNormal 3.9-4.9CFulton County Health Center on above:Order Comment: Specimen Type: BLOOD SPECIMENOrdering Facility: [facility] Address:[address] [place], [place] [address]Performed By: #### 43991-2 ####[facility] [id number] [facility]ERE[facility] [place]ENIXTESSAINCL[place], [place] [address]KXN [Catalytic activity/Vol]66 U/XDhhyuy74-420OhixqqivvUC [facility] on above:Order Comment: Specimen Type: BLOOD SPECIMENOrdering Facility: [facility] Address:[address] [place], [place] [address]Performed By: #### 83162-0 ####[facility] [id number] [facility]RE[facility] [place] [address]LAY [Catalytic activity/Vol]35 U/BEesrrr89-14GppqqmpbmUC [facility] on above:Order Comment: Specimen Type: BLOOD SPECIMENOrdering Facility: [facility] Address:[address] [place], [place] [address]Performed By: #### 71977-9 ####[facility] [id number] [facility] J[facility]OMERENEREUN[facility] [place] [address]Fraen gap [Moles/Vol]15 mmol/LNormal8-15[facility] on above:Order Comment: Specimen Type: BLOOD SPECIMENOrdering Facility: [facility] Address:[address] [place], [place] [address]Performed By: #### 39028- 8 ####[facility] [id number] ERNIE JEROME [facility]OTTONREUN[facility] PHO[place]IXTESSAINCLINE [place], [place] [address]AAI [Catalytic activity/Vol]21 U/TOwxkqi04-18FutfezpvgUC [facility] on above:Order Comment: Specimen Type: BLOOD SPECIMENOrdering Facility: [facility] Address:[address] [place], [place] [address]Performed By: #### 61603-4 ####[facility] [id number] [place], [place] [address]Nrpvswngi [Mass/Vol]0.4 mg/dLNormal0.2-1.3CFulton County Health Center on above:Order Comment: Specimen Type: BLOOD SPECIMENOrdering Facility: [facility] Address:[address] [place], [place] [address]Performed By: #### 61675- 8 ####[facility] [id number] [place], [place] [address]Yejpotl [Mass/Vol]9.8 mg/dLNormal8.5-10.2CFulton County Health Center on above:Order Comment: Specimen Type: BLOOD SPECIMENOrdering Facility: [facility] Address:[address] [place], [place] [address]Performed By: #### 63585-1 ####[facility] [id number] [place], [place] [address]Fvaimkvj [Moles/Vol]96 mmol/L Hwl85-690CvaijsidlUC [facility] on above:Order Comment: Specimen Type: BLOOD SPECIMENOrdering Facility: [facility] Address:[address] [place], [place] [address]Performed By: #### 95094-8 ####[facility] [id number] [place] [address] CO2 [Moles/Vol]26 mmol/XPlyill73-09BhsrxtkqkUC [facility] on above: Order Comment: Specimen Type: BLOOD SPECIMENOrdering Facility: [facility] Address:[address] [place], [place] [address]Performed By: #### 06239- 8 ####[facility] [id number] [place], [place] [address]Mtcepccqjj [Mass/Vol]0.76 mg/dLNormal0.73-1.22[facility] on above:Order Comment: Specimen Type: BLOOD SPECIMENOrdering Facility: [facility] Address:[address] [place] [address]Tvsiqptbh By: #### 90994-1 ####[facility] [id number] [place], [place] [address]xBSCul SerPlBld CKD-EPI 766334 mL/min/1.73m???Normal>=60[facility] on above:Order Comment: Specimen Type: BLOOD SPECIMENOrdering Facility: [facility] Address:[address] [place] [address]Nuqiog Comment: Estimated Glomerular Filtration Rate (eGFR) is [...] not accurately reflect actual GFR.Performed By: #### 45859-3 ####[facility] [id number] [place], [place] [address]Npjvjbe [Mass/Vol]272 mg/mVNvvx03-56MotffupsjUC [facility] on above:Order Comment: Specimen Type: BLOOD SPECIMENOrdering Facility: [facility] Address:[address] [place] [address]Ugdbkh Comment: The [place] Diabetes Association (ADA) provides guidance for cutoff [...] Standards of Medical Care in Diabetes 2016, [place] [employer]. Diabetes Care. 2016.39(Suppl 1).Performed By: #### 22827-5 ####[facility] [id number] [place], [place] [address]Vkhwesdww [Moles/Vol]4.1 mmol/LNormal3.7-5.1CFulton County Health Center on above:Order Comment: Specimen Type: BLOOD SPECIMENOrdering Facility: [facility] Address:[address] [place], [place] [address]Performed By: #### 98784-5 ####[facility] [id number] [place], [place] [address]Hhppuet [Mass/Vol]7.0 g/dLNormal6.3-8.0[facility] on above:Order Comment: Specimen Type: BLOOD SPECIMENOrdering Facility: [facility] Address:[address] [place], [place] [address]Performed By: #### 81204- 8 ####[facility] [id number] [place], [place] [address]Hmwmng [Moles/Vol]137 mmol/CTfwnuo909-328CvvqrondqUC [facility] on above:Order Comment: Specimen Type: BLOOD SPECIMENOrdering Facility: [facility] Address:[address] [place], [place] [address]Performed By: #### 39200-4 ####[facility] [id number] [place], [place] [address]Leoj nitrogen [Mass/Vol]13 mg/dLNormal9-24[facility] on above:Order Comment: Specimen Type: BLOOD SPECIMENOrdering Facility: [facility] Address:[address] [place], [place] [address]Performed By: #### 93016-0 ####[facility] [id number] [place], [place] [address]Hcangd SerPl-mCncon 85-10-2083Sgveioqk [Mass/Vol]1.4 ug/dLLow4.8-19.5CSouthview Medical CenterComment on above:Order Comment: Specimen Type: BLOOD SPECIMENOrdering Facility: [facility] Address:[address] [facility]LISETH [place] [id number] Comment: Provided reference range is from 6-10 AM sample collection time.Cortisol Reference Range: 6-10 AM = 4.8-19.5 ug/dL, 4-8 PM = 2.5-11.9 ug/dLPerformed By: #### 3016-3, 2143-6 ####[facility] LABCLIA [id number] [facility] [id number] [place] [address] [place] OF AMERICAEosinophils/100 WBC Auto (Bld) Ordered By: Lo Hancock on 05-62-1643Gcjabvcbsxx/100 WBC (Bld)0.6 %[facility] HospitalErythrocyte distribution width Auto (RBC) [Ratio]Ordered By: Lo Hancock on 49-88-9608Zewspuzmvlr distribution width (RBC) [Ratio] 16.4 %High11.5-15.0[facility] HospitalGlomerular filtration rate [Volume Rate/Area] in Serum, Plasma or Blood by CreatinineOrdered By: Lo Hancock on 86-15-8927Mtclczfkhf filtration rate [Volume Rate/Area] in Serum, Plasma or Blood by Tsqstfedfx95 mL/min/1.73m???>=60[facility] HospitalComment on above:Estimated Glomerular Filtration Rate (eGFR) [...] Serum or PlasmaOrdered By: Lo Hancock on 17-62-5443Ogtrwcz [Mass/Vol]272 mg/sVHebm33-75DldpabskjMagruder Memorial HospitalComment on above: The [place] Diabetes Association (ADA) provides guidance for cutoff [...] diabetes.Reference: Standardsof Medical Care in Diabetes 2016, [place] Diabetes Association. Diabetes Care. 2016.39(Suppl 1).Hematocrit Auto (Bld) [Volume fraction]Ordered By: Lo Hancock on 80-97-0861Qfwvcycqxq (Bld) [Volume fraction]37.6 %Low39.0-51.0 [facility] HospitalHemoglobin [Mass/volume] in BloodOrdered By: Lo Hancock on 15-33-0109Tclpidotir (Bld) [Mass/Vol]12.6 g/dLLow13.0-17.0 [facility] HospitalLaboratory - Chemistry and Chemistry - challengeOrdered By: Lo Hancock on 91-88-9982Rrjiabg [Mass/Vol]4.7 g/dL 3.9-4.9[facility] HospitalALP [Catalytic activity/Vol]66 U/L38-113 [facility] HospitalALT [Catalytic activity/Vol]35 U/L10-54 [facility] HospitalAST [Catalytic activity/Vol]21 U/L14-40 [facility] HospitalBilirubin [Mass/Vol]0.4 mg/dL0.2-1.3FGeorgetown Behavioral HospitalCalcium [Mass/Vol]9.8 mg/dL8.5-10.2FGeorgetown Behavioral HospitalChloride [Moles/Vol]96 mmol/PJtk86-046GdddzzjbrMagruder Memorial HospitalCO2 [Moles/Vol]26 mmol/J59-95RdxtypaijMagruder Memorial HospitalCreatinine [Mass/Vol]0.76 mg/dL0.73-1.22[facility] HospitalPotassium [Moles/Vol]4.1 mmol/L3.7-5.1FMemorial Health Systemodium [Moles/Vol] 137 mmol/X728-197HlaxyzscdMagruder Memorial HospitalTSH Qn0.821 m[IU]/L0.270-4.200 [facility] HospitalUrea nitrogen [Mass/Vol]13 mg/dL9-24[facility] HospitalLaboratory - Hematology and Cell countsOrdered By: Lo Hancock on 25-21-2167Nqxczexhbam (Bld) [#/Vol]0.05 10*3/uL<0.46[facility] HospitalImmature granulocytes (Bld) [#/Vol]0.16 10*3/uLHigh<0.10 [facility] HospitalImmature granulocytes/100 WBC (Bld)1.9 % [facility] HospitalLeukocytes [#/volume] corrected for nucleated erythrocytes in Blood by Automated counOrdered By: Lo Hancock on 12-07-2024 WBC corrected for nucl RBC Auto (Bld) [#/Vol]8.21 k/uL3.70-11.00[facility] HospitalLymphocytes Auto (Bld) [#/Vol]Ordered By: Lo Hancock on 84-08-3374Prmtpfjhgbb (Bld) [#/Vol]0.84 10*3/uLLow1.00-4.00[facility] HospitalLymphocytes/100 WBC Auto (Bld)Ordered By: Lo Hancock on 01-87-5373Ldwijhzmlxa/100 WBC (Bld)10.2 %[facility] MCH Auto (RBC) [Entitic mass]Ordered By: Lo Hancock on 93-59-9089GMY (RBC) [Entitic mass]29.9 pg26.0-34.0[facility] HospitalMCHC Auto (RBC) [Mass/Vol]Ordered By: Lo Hancock on 84-02-7040YZXD (RBC) [Mass/Vol]33.5 g/dL30.5-36.0[facility] HospitalMCV Auto (RBC) [Entitic vol] Ordered By: Lo Hancock on 65-58-8869MUZ (RBC) [Entitic vol]89.3 fL 80.0-100.0[facility] HospitalMonocytes Auto (Bld) [#/Vol]Ordered By: Lo Abhyankar on 71-67-4192Qaftoywye (Bld) [#/Vol]0.31 10*3/uL<0.87 [facility] HospitalMonocytes/100 WBC Auto (Bld)Ordered By: Lo Abhyankar on 18-84-3536Fanjthadk/100 WBC (Bld)3.8 %[facility] HospitalNeutrophils Auto (Bld) [#/Vol]Ordered By: Lo Abhyankar on 12-07-2024 Neutrophils (Bld) [#/Vol]6.81 10*3/uL1.45-7.50[facility] Neutrophils/100 WBC Auto (Bld)Ordered By: Lo Bergeronankar on 12-07-2024 Neutrophils/100 WBC (Bld)83.0 %[facility] HospitalNucleated RBC Auto (Bld) [#/Vol]Ordered By: Lo Bergeronankar on 93-85-3351Pnqfsifjx RBC (Bld) [#/Vol]10*3/uL<0.01[facility] HospitalNucleated erythrocytes [Presence] in Blood by Automated countOrdered By: Lo Hancock on 12-07-2024 Nucleated RBC Auto Ql (Bld)0.0 /100{WBC}[facility] Platelet mean volume Auto (Bld) [Entitic vol]Ordered By: Lo Hancock on 75-73-0948Kzigkqwe mean volume (Bld) [Entitic vol]9.4 fL9.0-12.7FGeorgetown Behavioral HospitalPlatelets Auto (Bld) [#/Vol]Ordered By: Lo Rubioankar on 74-17-1727Lztbqfihq (Bld) [#/Vol]265 10*3/aN551-184OhlmnulneMagruder Memorial HospitalProtein [Mass/volume] in Serum or PlasmaOrdered By: Lo Hancock on 33-71-7319Irlrqlf [Mass/Vol]7.0 g/dL6.3-8.0[facility] HospitalRBC Auto (Bld) [#/Vol]Ordered By: Lo Hancock on 74-44-9477GZD (Bld) [#/Vol]4.21 10*6/uL4.20-6.00[facility]ja Medical Centererum or plasma anion gap determinationOrdered By: Lo Hancock on 81-68-1219Xibnw gap [Moles/Vol]15 mmol/L8-15[facility] HospitalTS SerPl-aCncon 74-77-2863ICM Qn 0.821 m[IU]/LNormal0.270-4.200[facility] on above:Order Comment: Specimen Type: BLOOD SPECIMENOrdering Facility: [facility] Address:[address] [place], [place] [address]Performed By: #### 3016- 3, 2143-6 ####[facility] LAB[facility] [id number] [facility] [id number] [place] [address] OF AMERICACNOVon 29-81-4842XNKY NormalBarberton Citizens HospitalBasophils Auto (Bld) [#/Vol]Ordered By: Preston Hernández on 75-83-2676Szwsbzayc (Bld) [#/Vol]0.03 10*3/uL<0.11[facility] HospitalBasophils/100 WBC Auto (Bld)Ordered By: Preston Hernández on 11-23-2024 Basophils/100 WBC (Bld)0.3 %[facility] HospitalBlood manual differential comment interpretation narrativeOrdered By: Preston Hernández on 71-99-5968Gohjtm differential comment Jean (Bld) [Interp]AutoMagruder Memorial HospitalCB W Auto Differential panel (Bld)on 27-17-9785Wnnywdhal (Bld) [#/Vol]0.03 10*3/uLNormal<0.11CFulton County Health Center on above:Order Comment: Specimen Type: BLOOD SPECIMENOrdering Facility: [facility] Address:[address] [place], [place] [address]Performed By: #### 11731- 8 ####[facility] [id number] [place], [place] [address]Fgkrbzgqi/100 WBC (Bld)0.3 %NormalUC [facility] on above:Order Comment: Specimen Type: BLOOD SPECIMENOrdering Facility: [facility] Address:[address] [place], [place] [address]Performed By: #### 60619-6 ####[facility] [id number] [place], [place] [address]Xirwwkpplvke cell count method Nom (Bld)AutoNormalCFulton County Health Center on above:Order Comment: Specimen Type: BLOOD SPECIMENOrdering Facility: [facility] Address:[address] [place], [place] [address]Performed By: #### 21476-5 ####[facility] [id number] [place], [place] [address]Ygsjlghofaa (Bld) [#/Vol]0.05 10*3/uLNormal<0.46[facility] on above:Order Comment: Specimen Type: BLOOD SPECIMENOrdering Facility: [facility] Address:[address] [place], [place] [address]Performed By: #### 16024-8 ####[facility] [id number] [place], [place] [address]Wskotqymdkh/100 WBC (Bld)0.5 %NormalUC [facility] Hospital on above:Order Comment: Specimen Type: BLOOD SPECIMENOrdering Facility: [facility] Address:[address] [place], [place] [address]Performed By: #### 85333-3 ####[facility] [id number] [place], [place] [address]Olvzziufyib distribution width (RBC) [Ratio]16.3 %High 11.5-15.0[facility] on above:Order Comment: Specimen Type: BLOOD SPECIMENOrdering Facility: [facility] Address:[address] [place], [place] [address]Performed By: #### 73622-7 ####[facility] [id number] [place] [address] Hematocrit (Bld) [Volume fraction]35.6 %Low39.0-51.0[facility] Comment on above:Order Comment: Specimen Type: BLOOD SPECIMENOrdering Facility: [facility] Address:[address] [place] [address] Performed By: #### 03285-6 ####[facility] [id number] [place], [place] [address]Aypajgtmkz (Bld) [Mass/Vol]11.8 g/dLLow13.0-17.0[facility] HospitalComvibra hospital of [facility] [place] on above:Order Comment: Specimen Type: BLOOD SPECIMENOrdering Facility: [facility] Address:[address] [place], [place] [address]Performed By: #### 02985-1 ####[facility] [id number] [place], [place] [address]Spopixaz granulocytes (Bld) [#/Vol]0.14 10*3/uLHigh<0.10 [facility] HospitalComment on above:Order Comment: Specimen Type: BLOOD SPECIMENOrdering Facility: [facility] Address:[address] [place], [place] [address]Performed By: #### 25561-7 ####[facility] [id number] [place], [place] [address]Ckhixque granulocytes/100 WBC (Bld)1.3 %NormalUC [facility] Hospital on above: Order Comment: Specimen Type: BLOOD SPECIMENOrdering Facility: [facility] Address:[address] [place], [place] [address]Performed By: #### 09932- 8 ####[facility] [id number] [place], [place] [address]Cjvdjetlnzs (Bld) [#/Vol]0.96 10*3/uLLow1.00-4.00 [facility] on above:Order Comment: Specimen Type: BLOOD SPECIMENOrdering Facility: [facility] Address:[address] [place], [place] [address]Performed By: #### 27001-7 ####[facility] [id number] [place], [place] [address]Acvajevkdet/100 WBC (Bld)8.7 %NormalUC [facility] Hospital on above:Order Comment: Specimen Type: BLOOD SPECIMENOrdering Facility: [facility] Address:[address] [place], [place] [address]Performed By: #### 54738-5 ####[facility] [id number] [place], [place] [address]ZJT (RBC) [Entitic mass]29.4 htTbruas35.0-34.0[facility] on above:Order Comment: Specimen Type: BLOOD SPECIMENOrdering Facility: [facility] Address:[address] [place], [place] [address]Performed By: #### 82863-1 ####[facility] [id number] [place], [place] [address]WSYU (RBC) [Mass/Vol]33.1 g/fAWsrkyr49.5-36.0[facility] on above: Order Comment: Specimen Type: BLOOD SPECIMENOrdering Facility: [facility] Address:[address] [place], [place] [address]Performed By: #### 10390- 8 ####[facility] [id number] [place], [place] [address]OMT (RBC) [Entitic vol]88.8 aNXxtbnc69.0-100.0[facility] on above:Order Comment: Specimen Type: BLOOD SPECIMENOrdering Facility: [facility] Address:[address] [place], [place] [address]Performed By: #### 52319-2 ####[facility] [id number] [place], [place] [address]Ezcibbjwy (Bld) [#/Vol]0.66 10*3/uLNormal<0.87[facility] on above:Order Comment: Specimen Type: BLOOD SPECIMENOrdering Facility: [facility] Address:[address] [place], [place] [address]Performed By: #### 02694- 8 ####[facility] [id number] [place], [place] [address]Qrvjzbkkk/100 WBC (Bld)6.0 %NormalUC [facility] on above:Order Comment: Specimen Type: BLOOD SPECIMENOrdering Facility: [facility] Address:[address] [place], [place] [address]Performed By: #### 39997-6 ####[facility] [id number] [place], [place] [address]Ynokophukqq (Bld) [#/Vol]9.23 10*3/uLHigh1.45-7.50[facility] on above:Order Comment: Specimen Type: BLOOD SPECIMENOrdering Facility: [facility] Address:[address] [place], [place] [address]Performed By: #### 00599-0 ####[facility] [id number] [place], [place] [address]Xyjyrakqber/100 WBC (Bld)83.2 %NormalUC [facility] Hospital on above:Order Comment: Specimen Type: BLOOD SPECIMENOrdering Facility: [facility] Address:[address] [place], [place] [address]Performed By: #### 84308-1 ####[facility] [id number] [place], [place] [address]Rjojuddbn RBC (Bld) [#/Vol] 10*3/uLNormal<0.01[facility] on above:Order Comment: Specimen Type: BLOOD SPECIMENOrdering Facility: [facility] Address:[address] [place], [place] [address]Performed By: #### 09530-4 ####[facility] [id number] [place], [place] [address]Ylruswqly RBC/100 WBC (Bld) [Ratio]0.0 /100 WBCNormal [facility] on above:Order Comment: Specimen Type: BLOOD SPECIMENOrdering Facility: [facility] Address:[address] [place], [place] [address]Performed By: #### 54178-7 ####[facility] [id number] [place], [place] [address]Cbjomnhp mean volume (Bld) [Entitic vol]9.6 fLNormal9.0-12.7CFulton County Health Center on above:Order Comment: Specimen Type: BLOOD SPECIMENOrdering Facility: [facility] Address:[address] [place] [address] Performed By: #### 91321-5 ####[facility] [id number] [place], [place] [address]Fixrohilf (Bld) [#/Vol]284 10*3/iJFcsizl495-699IqcxpvkfxUC [facility] on above:Order Comment: Specimen Type: BLOOD SPECIMENOrdering Facility: [facility] Address:[address] [place], [place] [address]Performed By: #### 90463-0 ####[facility] [id number] [place], [place] [address]AOR (Bld) [#/Vol]4.01 10*6/uLLow4.20-6.00[facility] on above:Order Comment: Specimen Type: BLOOD SPECIMENOrdering Facility: [facility] Address:[address] [place], [place] [address]Performed By: #### 01639-8 ####[facility] [id number] [place], [place] [address]LRG (Bld) [#/Vol]11.07 10*3/uL High3.70-11.00[facility] HospitalComment on above:Order Comment: Specimen Type: BLOOD SPECIMENOrdering Facility: [facility] Address:[address] [place], [place] [address]Performed By: #### 47748-5 ####[facility] [id number] [place] [address] Basophils (Bld) [#/Vol]Normal<0.11CFulton County Health Center on above: Order Comment: Specimen Type: BLOOD SPECIMENOrdering Facility: [facility] Address:[address] [place], [place] [address]Result Comment: Disregard results. Specimen incorrectly identified.Corrected result: Previously reported as <0.03 k/uL on 11/23/2024 at 2:43 PM EDT.Performed By: #### 71442-9 ####[facility] [id number] [place], [place] [address]Qwwdvlnyj/100 WBC (Bld)NormalBarberton Citizens Hospital Comment on above:Order Comment: Specimen Type: BLOOD SPECIMENOrdering Facility: [facility] Address:[address] [place], [place] [address]Result Comment: Disregard results. Specimen incorrectly identified.Corrected result: Previously reported as 0.6 % on 11/23/2024 at 2:43 PM EDT.Performed By: #### 28279-9 ####[facility] [id number] [place], [place] [address]Wsdueyyvwxbo cell count method Nom (Bld)AutoNormal [facility] on above:Order Comment: Specimen Type: BLOOD SPECIMENOrdering Facility: [facility] Address:[address] [place], [place] [address]Performed By: #### 87681-9 ####[facility] [id number] [place], [place] [address]Prkrbtsllgs (Bld) [#/Vol]Normal<0.46[facility] on above:Order Comment: Specimen Type: BLOOD SPECIMENOrdering Facility: [facility] Address:[address] [place], [place] [address]Result Comment: Disregard results. Specimen incorrectly identified.Corrected result: Previously reported as 0.05 k/uL on 11/23/2024 at 2:43 PM EDT.Performed By: #### 49168-5 ####[facility] [id number] [place], [place] [address]Dnvvtvltdbi/100 WBC (Bld)NormalBarberton Citizens Hospital Comment on above:Order Comment: Specimen Type: BLOOD SPECIMENOrdering Facility: [facility] Address:[address] [place] [address] Comment: Disregard results. Specimen incorrectly identified.Corrected result: Previously reported as 1.5 % on 11/23/2024 at 2:43 PM EDT.Performed By: #### 45622-6 ####[facility] [id number] [place], [place] [address]Wnklcfovjib distribution width (RBC) [Ratio]Normal 11.5-15.0[facility] on above:Order Comment: Specimen Type: BLOOD SPECIMENOrdering Facility: [facility] Address:[address] [place], [place] [address]Result Comment: Disregard results. Specimen incorrectly identified.Corrected result: Previously reported as 12.8 % on 11/23/2024 at 2:43 PM EDT.Corrected result: Previously reported as 12.8 % on 11/23/2024 at 3:15 PM EDT.Performed By: #### 40774-0 ####[facility] [id number] [place] [address] Hematocrit (Bld) [Volume fraction]Iebgwr34.0-51.0[facility] Comment on above:Order Comment: Specimen Type: BLOOD SPECIMENOrdering Facility: [facility] Address:[address] [place] [address] Comment: Disregard results. Specimen incorrectly identified.Corrected result: Previously reported as 37.2 % on 11/23/2024 at 2:43 PM EDT.Corrected result: Previously reported as 37.2 % on 11/23/2024 at 3:15 PM EDT.Performed By: #### [id number] ####[facility] [id number] [place], [place] [address]Kxulzgrwcb (Bld) [Mass/Vol]Janqzp56.0-17.0[facility]:Order Comment: Specimen Type: BLOOD SPECIMENOrdering Facility: [facility] Address:[address] [place] [address] Comment: Disregard results. Specimen incorrectly identified.Corrected result: Previously reported as 12.3 g/dL on 11/23/2024 at 2:43 PM EDT.Corrected result: Previously reported as 12.3 g/dL on11/23/2024 at 3:15 PM EDT.Performed By: #### [id number] ####[facility] [id number] [place], [place] [address]Kdrvjnbf granulocytes (Bld) [#/Vol]Normal<0.10[facility] on above:Order Comment: Specimen Type: BLOOD SPECIMENOrdering Facility: [facility] Address:[address] [place], [place] [id number] Comment: Disregard results. Specimen incorrectly identified.Corrected result: Previously reported as 0.08 k/uL on 11/23/2024 at 2:43 PM EDT.Performed By: #### [id number] ####[facility] [id number] [place], [place] [address]Dxzpayjp granulocytes/100 WBC (Bld)NormalUC [facility] on above:Order Comment: Specimen Type: BLOOD SPECIMENOrdering Facility: [facility] Address:[address] [place] [address] Comment: Disregard results. Specimen incorrectly identified.Corrected result: Previously reported as 2.4 % on 11/23/2024 at 2:43 PM EDT.Performed By: #### 72847-4 ####[facility] [id number] [place], [place] [address]Snefrhvpfpw (Bld) [#/Vol]Normal 1.00-4.00[facility] on above:Order Comment: Specimen Type: BLOOD SPECIMENOrdering Facility: [facility] Address:[address] [place] [address] Comment: Disregard results. Specimen incorrectly identified.Corrected result: Previously reported as 0.84 k/uL on 11/23/2024 at 2:43 PM EDT.Performed By: #### 10763-1 ####[facility] [id number] [place] [address] Lymphocytes/100 WBC (Bld)NormalUC [facility] on above:Order Comment: Specimen Type: BLOOD SPECIMENOrdering Facility: [facility] Address:[address] [place] [address] Comment: Disregard results. Specimen incorrectly identified.Corrected result: Previously reported as 24.7 % on 11/23/2024 at 2:43 PM EDT.Performed By: #### 68703-7 ####[facility] [id number] [place] [address] MCH (RBC) [Entitic mass]Jyxbre19.0-34.0[facility] on above:Order Comment: Specimen Type: BLOOD SPECIMENOrdering Facility: [facility] Address:[address] [place] [address] Comment: Disregard results. Specimen incorrectly identified.Corrected result: Previously reported as 29.7 pg on 11/23/2024 at 2:43 PM EDT.Corrected result: Previously reported as 29.7 pg on 11/23/2024 at 3:15 PM EDT.Performed By: #### 36688-3 ####[facility] [id number] [place], [place] [address]YGFQ (RBC) [Mass/Vol]Ixsqdf44.5-36.0[facility] on above:Order Comment: Specimen Type: BLOOD SPECIMENOrdering Facility: [facility] Address:[address] [place] [address] Comment: Disregard results. Specimen incorrectly identified.Corrected result: Previously reported as 33.1 g/dL on 11/23/2024 at 2:43 PM EDT.Corrected result: Previously reported as 33.1 g/dL on11/23/2024 at 3:15 PM EDT.Performed By: #### 62788-6 ####[facility] [id number] [place], [place] [address]UOB (RBC) [Entitic vol] Ezmptj49.0-100.0[facility] on above:Order Comment: Specimen Type: BLOOD SPECIMENOrdering Facility: [facility] Address:[address] [place] [address] Comment: Disregard results. Specimen incorrectly identified.Corrected result: Previously reported as 89.9 fL on 11/23/2024 at 2:43 PM EDT.Corrected result: Previously reported as 89.9 fL on 11/23/2024 at 3:15 PM EDT.Performed By: #### 37000-8 ####[facility] [id number] [place], [place] [address]Ytvdaxxnk (Bld) [#/Vol]Normal<0.87[facility] on above:Order Comment: Specimen Type: BLOOD SPECIMENOrdering Facility: [facility] Address:[address] [place] [address] Comment: Disregard results. Specimen incorrectly identified.Corrected result: Previously reported as 0.38 k/uL on 11/23/2024 at 2:43 PM EDT.Performed By: #### 01296-9 ####[facility] [id number] [place], [place] [address]Lzasrimqn/100 WBC (Bld)NormalBarberton Citizens Hospital Comment on above:Order Comment: Specimen Type: BLOOD SPECIMENOrdering Facility: [facility] Address:[address] [place] [address] Comment: Disregard results. Specimen incorrectly identified.Corrected result: Previously reported as 11.2 % on 11/23/2024 at 2:43 PM EDT.Performed By: #### 89675-6 ####[facility] [id number] [place], [place] [address]Hfmqsjcbjbq (Bld) [#/Vol]Normal1.45-7.50[facility] on above:Order Comment: Specimen Type: BLOOD SPECIMENOrdering Facility: [facility] Address:[address] [place] [address] Comment: Disregard results. Specimen incorrectly identified.Corrected result: Previously reported as 2.03 k/uL on 11/23/2024 at 2:43 PM EDT.Performed By: #### 89670-8 ####[facility] [id number] [place], [place] [address]Nvesyqcmcmo/100 WBC (Bld)NormalUC [facility] on above:Order Comment: Specimen Type: BLOOD SPECIMENOrdering Facility: [facility] Address:[address] [place] [address] Comment: Disregard results. Specimen incorrectly identified.Corrected result: Previously reported as 59.6 % on 11/23/2024 at 2:43 PM EDT.Performed By: #### 97673-1 ####[facility] [id number] [place], [place] [address]Kjyvvqmp mean volume (Bld) [Entitic vol]Normal9.0-12.7CFulton County Health Center on above:Order Comment: Specimen Type: BLOOD SPECIMENOrdering Facility: [facility] Address:[address] [place] [address] Comment: Disregard results. Specimen incorrectly identified.Corrected result: Previously reported as 11.4 fL on 11/23/2024 at 2:43 PM EDT.Corrected result: Previously reported as 11.4 fL on 11/23/2024 at 3:15 PM EDT.Performed By: #### 50954-6 ####[facility] [id number] [place], [place] [address]Cejihberk (Bld) [#/Vol]Rfkklt919-391CyxiwuqkbUC [facility] on above:Order Comment: Specimen Type: BLOOD SPECIMENOrdering Facility: [facility] Address:[address] [place] [address] Comment: Disregard results. Specimen incorrectly identified.Corrected result: Previously reported as 169 k/uL on 11/23/2024 at 2:43 PM EDT.Corrected result: Previously reported as 169 k/uL on 11/23/2024 at 3:15 PM EDT.Performed By: #### 48961-0 ####[facility] [id number] [place], [place] [address]XSQ (Bld) [#/Vol]Normal 4.20-6.00[facility] on above:Order Comment: Specimen Type: BLOOD SPECIMENOrdering Facility: [facility] Address:[address] [place] [address] Comment: Disregard results. Specimen incorrectly identified.Corrected result: Previously reported as 4.14 m/uL on 11/23/2024 at 2:43 PM EDT.Corrected result: Previously reported as 4.14 m/uL on 11/23/2024 at 3:15 PM EDT.Performed By: #### 96062-1 ####[facility] [id number] [place], [place] [address]ICM (Bld) [#/Vol]Normal3.70-11.00[facility] on above:Order Comment: Specimen Type: BLOOD SPECIMENOrdering Facility: [facility] Address:[address] [place], [place] [address]Result Comment: Disregard results. Specimen incorrectly identified.Corrected result: Previously reported as 3.40 k/uL on 11/23/2024 at 2:43 PM EDT.Corrected result: Previously reported as 3.40 k/uL on11/23/2024 at 3:15 PM EDT.Performed By: #### 44586-8 ####[facility] [id number] [place], [place] [address]FDFPAZqd 96-32-3138TLZIDCQsdnjmBnoaedecqOhioHealth metabolic 2000 panelon 25-46-9643Uslwhza [Mass/Vol]4.5 g/dLNormal 3.9-4.9CFulton County Health Center on above:Order Comment: Specimen Type: BLOOD SPECIMENOrdering Facility: [facility] Address:[address] [place], [place] [address]Performed By: #### 37152-0 ####[facility] [id number] [place], [place] [address]IDL [Catalytic activity/Vol]55 U/ZObjzcg37-657PetbshopcUC [facility] on above:Order Comment: Specimen Type: BLOOD SPECIMENOrdering Facility: [facility] Address:[address] [place], [place] [address]Performed By: #### 43349-1 ####[facility] [id number] [place], [place] [address]BCT [Catalytic activity/Vol]30 U/BKxbuxr96-77TomxecnuqUC [facility] on above:Order Comment: Specimen Type: BLOOD SPECIMENOrdering Facility: [facility] Address:[address] [place], [place] [address]Performed By: #### 09728-7 ####[facility] [id number] [place], [place] [address]Dodpt gap [Moles/Vol]11 mmol/LNormal8-15[facility] on above:Order Comment: Specimen Type: BLOOD SPECIMENOrdering Facility: [facility] Address:[address] [place], [place] [address]Performed By: #### 52665- 8 ####[facility] [id number] [facility] [place], [place] [address]GNR [Catalytic activity/Vol]17 U/IEdpbtf39-57DybzjoomrUC [facility] on above:Order Comment: Specimen Type: BLOOD SPECIMENOrdering Facility: [facility] Address:[address] [place], [place] [address]Performed By: #### 26484-1 ####[facility] [id number] [place], [place] [address]Cefdatvjy [Mass/Vol]0.3 mg/dLNormal0.2-1.3CFulton County Health Center on above:Order Comment: Specimen Type: BLOOD SPECIMENOrdering Facility: [facility] Address:[address] [place], [place] [address]Performed By: #### 91395- 8 ####[facility] [id number] [facility] [place], [place] [address]Ljohflt [Mass/Vol]8.9 mg/dLNormal8.5-10.2CFulton County Health Center on above:Order Comment: Specimen Type: BLOOD SPECIMENOrdering Facility: [facility] Address:[address] [place], [place] [address]Performed By: #### 06427-1 ####[facility] [id number] [place], [place] [address]Kejcliie [Moles/Vol]102 mmol/L Rnuldf08-591FiscbjjpmUC [facility] on above:Order Comment: Specimen Type: BLOOD SPECIMENOrdering Facility: [facility] Address:[address] [place], [place] [address]Performed By: #### 07440-1 ####[facility] [id number] [place] [address] CO2 [Moles/Vol]27 mmol/AIfczxe91-77HrpikcfobUC [facility] on above: Order Comment: Specimen Type: BLOOD SPECIMENOrdering Facility: [facility] Address:[address] [place], [place] [address]Performed By: #### 50839- 8 ####[facility] [id number] [place], [place] [address]Rywhcmghjw [Mass/Vol]0.67 mg/dLLow0.73-1.22[facility] on above:Order Comment: Specimen Type: BLOOD SPECIMENOrdering Facility: [facility] Address:[address] [place], [place] [address]Performed By: #### 41203-3 ####[facility] [id number] [place], [place] [address]iONDrg SerPlBld CKD-EPI 2689355 mL/min/1.73m???Normal>=60[facility] on above:Order Comment: Specimen Type: BLOOD SPECIMENOrdering Facility: [facility] Address:[address] [place], [place] [address]Result Comment: Estimated Glomerular Filtration Rate (eGFR) is [...] not accurately reflect actual GFR.Performed By: #### 96175-4 ####[facility] [id number] [place], [place] [address]Guhecrh [Mass/Vol]125 mg/zWZejx71-23WnxamcbrsUC [facility] on above:Order Comment: Specimen Type: BLOOD SPECIMENOrdering Facility: [facility] Address:[address] [place], [place] [address]Result Comment: The [place] Diabetes Association (ADA) provides guidance for cutoff [...] Standards of Medical Care in Diabetes 2016, [place] [employer]. Diabetes Care. 2016.39(Suppl 1).Performed By: #### 78902-9 ####[facility] [id number] [place], [place] [address]Rxaogpkia [Moles/Vol]4.1 mmol/LNormal3.7-5.1CFulton County Health Center on above:Order Comment: Specimen Type: BLOOD SPECIMENOrdering Facility: [facility] Address:[address] [place], [place] [address]Performed By: #### 49183-3 ####[facility] [id number] [place], [place] [address]Euichhb [Mass/Vol]6.5 g/dLNormal6.3-8.0[facility] on above:Order Comment: Specimen Type: BLOOD SPECIMENOrdering Facility: [facility] Address:[address] [place], [place] [address]Performed By: #### 94001- 8 ####[facility] [id number] [place], [place] [address]Bqxsxr [Moles/Vol]140 mmol/LItzwhl136-346XrvdnnknfUC [facility] on above:Order Comment: Specimen Type: BLOOD SPECIMENOrdering Facility: [facility] Address:[address] [place], [place] [address]Performed By: #### 01581-7 ####[facility] [id number] [place], [place] [address]Kebj nitrogen [Mass/Vol]17 mg/dLNormal9-24[facility] on above:Order Comment: Specimen Type: BLOOD SPECIMENOrdering Facility: [facility] Address:[address] [place], [place] [address]Performed By: #### 56497-1 ####[facility] [id number] [place], [place] [address]Dixyrv SerPl-mCncon 28-47-5624Snuvbqdn [Mass/Vol]2.7 ug/dLLow4.8-19.5CFulton County Health Center on above:Order Comment: Specimen Type: BLOOD SPECIMENOrdering Facility: [facility] Address:[address] [place], [place] [address]Result Comment: Provided reference range is from 6-10 AM sample collection time.Cortisol Reference Range: 6-10 AM = 4.8-19.5 ug/dL, 4-8 PM = 2.5-11.9 ug/dLPerformed By: #### 3016-3, 2143-6 ####[facility] LABCLIA [id number] [place] [address] [place] AMERICAEosinophils/100 WBC Auto (Bld) Ordered By: Preston Hernández on 39-33-2678Rwrhbcynlfh/100 WBC (Bld)0.5 %[facility] HospitalErythrocyte distribution width Auto (RBC) [Ratio]Ordered By: Preston Hernández on 53-63-6694Gzgzpqsrqgg distribution width (RBC) [Ratio]16.3 % High11.5-15.0[facility] HospitalGlomerular filtration rate [Volume Rate/Area] in Serum, Plasma or Blood by CreatinineOrdered By: Lo Hancock on 94-07-8134Bbrrhxtfmj filtration rate [Volume Rate/Area] in Serum, Plasma or Blood by Lfqnibpyza406 mL/min/1.73m???>=60[facility] Comment on above:Estimated Glomerular Filtration Rate [...] (Bld) [Volume fraction]Ordered By: Preston Hernández on 42-50-0364Yehzjwyoqq (Bld) [Volume fraction]35.6 %Low39.0-51.0[facility] HospitalHemoglobin [Mass/volume] in BloodOrdered By: Preston Hernández on 44-61-0822Wovcwehzhm (Bld) [Mass/Vol]11.8 g/dLLow13.0-17.0[facility] HospitalLaboratory - Chemistry and Chemistry - challengeOrdered By: Lo Hancock on 11-23-2024 Albumin [Mass/Vol]4.5 g/dL3.9-4.9[facility] HospitalALP [Catalytic activity/Vol]55 U/S58-002VkjavbtldMagruder Memorial HospitalALT [Catalytic activity/Vol]30 U/R03-49AckwygftrMagruder Memorial HospitalAST [Catalytic activity/Vol]17 U/L81-40RxxwgipziMagruder Memorial HospitalBilirubin [Mass/Vol]0.3 mg/dL0.2-1.3FGeorgetown Behavioral HospitalCalcium [Mass/Vol]8.9 mg/dL 8.5-10.2FGeorgetown Behavioral HospitalChloride [Moles/Vol]102 mmol/L98-107 [facility] HospitalCO2 [Moles/Vol]27 mmol/Q48-99WdcwxmpubMagruder Memorial HospitalCreatinine [Mass/Vol]0.67 mg/dLLow0.73-1.22[facility] HospitalGlucose [Mass/Vol]125 mg/rACira49-69GleqrfgajMagruder Memorial HospitalComment on above:The [place] Diabetes Association (ADA) provides guidance for cutoff [...] diabetes.Reference: Standardsof Medical Care in Diabetes 2016, [place] Diabetes Association. Diabetes Care. 2016.39(Suppl 1).Potassium [Moles/Vol]4.1 mmol/L 3.7-5.1FMemorial Health Systemodium [Moles/Vol]140 mmol/D681-218 [facility] HospitalUrea nitrogen [Mass/Vol]17 mg/dL9-24[facility] HospitalTS Qn0.129 m[IU]/LLow0.270-4.200[facility] HospitalLaboratory - Hematology and Cell countsOrdered By: Preston Hernández on 95-35-2253Gcaksdxuxkn (Bld) [#/Vol]0.05 10*3/uL<0.46[facility] HospitalImmature granulocytes (Bld) [#/Vol]0.14 10*3/uLHigh<0.10[facility] granulocytes/100 WBC (Bld)1.3 %[facility] HospitalLeukocytes [#/volume] corrected for nucleated erythrocytes in Blood by Automated counOrdered By: Preston Hernández on 33-49-9672HPN corrected for nucl RBC Auto (Bld) [#/Vol]11.07 k/uLHigh3.70-11.00[facility] HospitalLymphocytes Auto (Bld) [#/Vol]Ordered By: Preston Hernández on 11-23-2024 Lymphocytes (Bld) [#/Vol]0.96 10*3/uLLow1.00-4.00[facility] HospitalLymphocytes/100 WBC Auto (Bld)Ordered By: Preston Hernández on 11-23-2024 Lymphocytes/100 WBC (Bld)8.7 %[facility] Auto (RBC) [Entitic mass]Ordered By: Preston Hernández on 26-84-5124NDK (RBC) [Entitic mass]29.4 pg26.0-34.0[facility] HospitalMCHC Auto (RBC) [Mass/Vol]Ordered By: Preston Hernández on 44-89-2897GQFW (RBC) [Mass/Vol]33.1 g/dL30.5-36.0[facility] HospitalMCV Auto (RBC) [Entitic vol]Ordered By: Preston Hernández on 04-49-5815MAP (RBC) [Entitic vol]88.8 fL80.0-100.0[facility] HospitalMonocytes Auto (Bld) [#/Vol]Ordered By: Preston Hernández on 16-10-5962Xcvbseumf (Bld) [#/Vol]0.66 10*3/uL<0.87[facility] HospitalMonocytes/100 WBC Auto (Bld)Ordered By: Preston Hernández on 29-22-2215Hpcepiora/100 WBC (Bld)6.0 % [facility] HospitalNeutrophils Auto (Bld) [#/Vol]Ordered By: Preston Hernández on 29-00-5547Cryqnamfhmc (Bld) [#/Vol]9.23 10*3/uLHigh1.45-7.50 [facility] HospitalNeutrophils/100 WBC Auto (Bld)Ordered By: Preston Hernández on 10-50-1552Hkcwptzmecd/100 WBC (Bld)83.2 %[facility] HospitalNucleated RBC Auto (Bld) [#/Vol]Ordered By: Preston Hernández on 13-71-4337Wgerougby RBC (Bld) [#/Vol]10*3/uL<0.01[facility] HospitalNucleated erythrocytes [Presence] in Blood by Automated countOrdered By: Preston Hernández on 86-19-0319Hadtgslrr RBC Auto Ql (Bld)0.0 /100{WBC}[facility] HospitalPlatelet mean volume Auto (Bld) [Entitic vol]Ordered By: Preston Hernández on 49-20-3395Jgkniddp mean volume (Bld) [Entitic vol]9.6 fL9.0-12.7 [facility] HospitalPlatelets Auto (Bld) [#/Vol]Ordered By: Preston Hernández on 70-79-9871Osmyfktyv (Bld) [#/Vol]284 10*3/yE792-234EizeielqiMagruder Memorial HospitalProtein [Mass/volume] in Serum or PlasmaOrdered By: Lo Hancock on 65-21-5531Iebzmam [Mass/Vol]6.5 g/dL6.3-8.0[facility] HospitalRBC Auto (Bld) [#/Vol]Ordered By: Preston Hernández on 95-99-9203EHO (Bld) [#/Vol]4.01 10*6/uLLow4.20-6.00[facility]huja Medical Centererum or plasma anion gap determinationOrdered By: Lo Hancock on 70-51-1053Ufrsu gap [Moles/Vol]11 mmol/L8-15[facility] HospitalTSH SerPl-aCncon 05-35-3158EXF Qn0.129 m[IU]/LLow0.270-4.200[facility] on above:Order Comment: Specimen Type: BLOOD SPECIMENOrdering Facility: [facility] Address:[address] [place], [place] [address]Performed By: #### 3016-3, 2143-6 ####[facility] LABCLIA [id number] [address] STATES OF [facility] SYSTEMMR HIP RIGHT WO IV CONTRASTon 78-07-8561FK HIP RIGHT WO IV CONTRASTEXAMINATION/TECHNIQUE: MR HIP RIGHT WO IV CONTRAST History: Chronic right hip pain. Trochanteric bursitis. Comparison: MRI 08/09/2023. RESULT: RIGHT HIP JOINT: No distinct measurable full-thickness chondral defect. Probable areas of partial-thickness chondral loss. Degenerative signal in the labrum. No evidence for fracture. No joint effusion. LEFT HIP JOINT: Large zqwjg-ku-iqyi with degenerative changes. SI JOINTS: Unremarkable. PUBIC [...] ELECTRONICALLY SIGNED BY: Ericka CrawfordNot AvailableCNOVon 11-16-2024 CNOVNormalCEast Liverpool City Hospital ClevelandBasophils Auto (Bld) [#/Vol]Ordered By: Lo Hancock on 48-94-9765Qvolsluag (Bld) [#/Vol]0.04 10*3/uL<0.11[facility] HospitalBasophils/100 WBC Auto (Bld)Ordered By: Lo Hancock on 95-08-6082Rzsbrpfch/100 WBC (Bld)0.2 %[facility] HospitalBlood manual differential comment interpretation narrativeOrdered By: Lo Hancock on 49-66-7656Guqgzq differential comment Jean (Bld) [Interp]AutoMagruder Memorial HospitalCB W Auto Differential panel (Bld)on 26-00-1133Mlursoutv (Bld) [#/Vol]0.04 10*3/uLNINFCleCity HospitalBasophils/100 WBC (Bld)0.2 % [facility] CenterDifferential cell count method Nom (Bld)AutoCEast Liverpool City Hospital Eosinophils (Bld) [#/Vol]NINFCEast Liverpool City HospitalEosinophils/100 WBC (Bld)0.0 % [facility] CenterErythrocyte distribution width (RBC) [Ratio]14.9 %11.5 - 15.0 % [facility] CenterHematocrit (Bld) [Volume fraction]36.8 %Low39.0 - 51.0 % [facility] CenterHemoglobin (Bld) [Mass/Vol]12.4 g/dLLow13.0 - 17.0 g/dLCincinnati Va Medical CenterImmature granulocytes (Bld) [#/Vol]0.32 10*3/uLHighNINFCincinnati Va Medical Center Immature granulocytes/100 WBC (Bld)1.3 %[facility] CenterInterpretation and review of laboratory resultsAbnormalClevelcarolinas continuecare hospital at university ClinicLymphocytes (Bld) [#/Vol] 1.47 10*3/uLCincinnati Va Medical CenterLymphocytes/100 WBC (Bld)6.0 %[facility] SystemH (RBC) [Entitic mass]29.4 pg26.0 - 34.0 pgClevelHennepin County Medical CenterHC (RBC) [Mass/Vol] 33.7 g/dL30.5 - 36.0 g/dLHolzer Health SystemV (RBC) [Entitic vol]87.2 fL80.0 - 100.0 fLCEast Liverpool City HospitalMonocytes (Bld) [#/Vol]0.89 10*3/uLHighNIKindred HealthcareMonocytes/100 WBC (Bld)3.6 %[facility] CenterNeutrophils (Bld) [#/Vol]21.70 10*3/uLHighCincinnati Va Medical CenterNeutrophils/100 WBC (Bld)88.9 %[facility] Nucleated RBC (Bld) [#/Vol]NINFCleveland Lake Region HospitalNucleated RBC/100 WBC (Bld) [Ratio]0.0 %/100 WBCCincinnati Va Medical CenterPlatelet mean volume (Bld) [Entitic vol]9.7 fL9.0 - 12.7 fLCmemorial health system selby general hospital ClinicPlatelets (Bld) [#/Vol]296 10*3/uLCincinnati Va Medical CenterRBC (Bld) [#/Vol]4.22 10*6/uL4.20 - 6.00 m/[facility] HospitalWBC (Bld) [#/Vol]24.43 10*3/uLHighProtestant Hospital ClinicBasophils (Bld) [#/Vol] 0.04 10*3/uLNormal<0.11CSouthview Medical CenterComment on above:Order Comment: Specimen Type: BLOOD SPECIMENOrdering Facility: [facility] Address:[address] [place], [place] [address]Performed By: #### 76877-2 ####[facility] [id number] [place], [place] [address]Vmongnybe/100 WBC (Bld)0.2 %NormalUC [facility] on above:Order Comment: Specimen Type: BLOOD SPECIMENOrdering Facility: [facility] Address:[address] [place], [place] [address]Performed By: #### 43296-8 ####[facility] [id number] [place], [place] [address]Idkdnggaaiob cell count method Nom (Bld)AutoNormalCFulton County Health Center on above:Order Comment: Specimen Type: BLOOD SPECIMENOrdering Facility: [facility] Address:[address] [place], [place] [address]Performed By: #### 36958-7 ####[facility] [id number] [place], [place] [address]Pdxmlxwmbtq (Bld) [#/Vol]10*3/uLNormal<0.46[facility] on above:Order Comment: Specimen Type: BLOOD SPECIMENOrdering Facility: [facility] Address:[address] [place], [place] [address]Performed By: #### 98932-4 ####[facility] [id number] [place], [place] [address]Iklawlqrqvh/100 WBC (Bld)0.0 %NormalUC West Chester Hospital on above:Order Comment: Specimen Type: BLOOD SPECIMENOrdering Facility: [facility] Address:[address] [place], [place] [address]Performed By: #### 68185-1 ####[facility] [id number] [place], [place] [address]Oqvotawbpxm distribution width (RBC) [Ratio]14.9 %Normal 11.5-15.0[facility] on above:Order Comment: Specimen Type: BLOOD SPECIMENOrdering Facility: [facility] Address:[address] [place], [place] [address]Performed By: #### 73922-5 ####[facility] [id number] [place] [address] Hematocrit (Bld) [Volume fraction]36.8 %Low39.0-51.0[facility] Comment on above:Order Comment: Specimen Type: BLOOD SPECIMENOrdering Facility: [facility] Address:[address] [place] [address] Performed By: #### 14937-0 ####[facility] [id number] [place], [place] [address]Uabaiknytr (Bld) [Mass/Vol]12.4 g/dLLow13.0-17.0[facility] HospitalComment on above:Order Comment: Specimen Type: BLOOD SPECIMENOrdering Facility: [facility] Address:[address] [place], [place] [address]Performed By: #### [id number] ####[facility] [id number] [place], [place] [address]Teyaposq granulocytes (Bld) [#/Vol]0.32 10*3/uLHigh<0.10 [facility] HospitalComment on above:Order Comment: Specimen Type: BLOOD SPECIMENOrdering Facility: [facility] Address:[address] [place], [place] [address]Performed By: #### [id number] ####[facility] LABCLIA [id number] [place], [place] [address]Eirkteln granulocytes/100 WBC (Bld)1.3 %NormalBarberton Citizens HospitalComvibra hospital of [facility] [place] on above: Order Comment: Specimen Type: BLOOD SPECIMENOrdering Facility: [facility] Address:[address] [place], [place] [address]Performed By: #### [id number]- 8 ####[facility] LABCLIA [id number] [place], [place] [address]Exyndvtlgob (Bld) [#/Vol]1.47 10*3/uLNormal1.00-4.00 [facility] on above:Order Comment: Specimen Type: BLOOD SPECIMENOrdering Facility: [facility] Address:[address] [place], [place] [address]Performed By: #### [id number] ####[facility] LABCLIA [id number] [place], [place] [address]Gelwfzjpfvk/100 WBC (Bld)6.0 %NormalUC West [facility] Hospital on above:Order Comment: Specimen Type: BLOOD SPECIMENOrdering Facility: [facility] Address:[address] [place], [place] [address]Performed By: #### 62107-5 ####[facility] [id number] [place], [place] [address]FJO (RBC) [Entitic mass]29.4 hdWxsxnt39.0-34.0[facility] on above:Order Comment: Specimen Type: BLOOD SPECIMENOrdering Facility: [facility] Address:[address] [place], [place] [address]Performed By: #### 66833-0 ####[facility] [id number] [place], [place] [address]UXTH (RBC) [Mass/Vol]33.7 g/eTUthqgt65.5-36.0[facility] on above: Order Comment: Specimen Type: BLOOD SPECIMENOrdering Facility: [facility] Address:[address] [place], [place] [address]Performed By: #### 32746- 8 ####[facility] [id number] [place], [place] [address]SVZ (RBC) [Entitic vol]87.2 aHLmyhcm01.0-100.0[facility] on above:Order Comment: Specimen Type: BLOOD SPECIMENOrdering Facility: [facility] Address:[address] [place], [place] [address]Performed By: #### 42133-0 ####[facility] [id number] [place], [place] [address]Fxrxxrngv (Bld) [#/Vol]0.89 10*3/uLHigh<0.87[facility] on above:Order Comment: Specimen Type: BLOOD SPECIMENOrdering Facility: [facility] Address:[address] [place], [place] [address]Performed By: #### 71701- 8 ####[facility] [id number] [place], [place] [address]Qbgdalynf/100 WBC (Bld)3.6 %NormalUC [facility] on above:Order Comment: Specimen Type: BLOOD SPECIMENOrdering Facility: [facility] Address:[address] [place], [place] [address]Performed By: #### 24102-0 ####[facility] [id number] [place], [place] [address]Klgcpfkeirt (Bld) [#/Vol]21.70 10*3/uLHigh1.45-7.50[facility] on above:Order Comment: Specimen Type: BLOOD SPECIMENOrdering Facility: [facility] Address:[address] [place], [place] [address]Performed By: #### 72105-2 ####[facility] [id number] [place], [place] [address]Zdloviothnt/100 WBC (Bld)88.9 %NormalUC [facility] on above:Order Comment: Specimen Type: BLOOD SPECIMENOrdering Facility: [facility] Address:[address] [place], [place] [address]Performed By: #### 82252-0 ####[facility] [id number] [place], [place] [address]Inevxzpod RBC (Bld) [#/Vol] 10*3/uLNormal<0.01[facility] on above:Order Comment: Specimen Type: BLOOD SPECIMENOrdering Facility: [facility] Address:[address] [place], [place] [address]Performed By: #### 04643-1 ####[facility] [id number] [place], [place] [address]Pxrpvttlq RBC/100 WBC (Bld) [Ratio]0.0 /100 WBCNormal [facility] on above:Order Comment: Specimen Type: BLOOD SPECIMENOrdering Facility: [facility] Address:[address] [place], [place] [address]Performed By: #### 03635-7 ####[facility] [id number] [place], [place] [address]Coctgdrk mean volume (Bld) [Entitic vol]9.7 fLNormal9.0-12.7CFulton County Health Center on above:Order Comment: Specimen Type: BLOOD SPECIMENOrdering Facility: [facility] Address:[address] [place] [address] Performed By: #### 14286-3 ####[facility] [id number] [place], [place] [address]Krtignwsf (Bld) [#/Vol]296 10*3/dCTdjjwg828-462ZrcpjhhojUC [facility] on above:Order Comment: Specimen Type: BLOOD SPECIMENOrdering Facility: [facility] Address:[address] [place], [place] [address]Performed By: #### 73248-9 ####[facility] [id number] [place], [place] [address]DIE (Bld) [#/Vol]4.22 10*6/uLNormal4.20-6.00[facility] on above:Order Comment: Specimen Type: BLOOD SPECIMENOrdering Facility: [facility] Address:[address] [place], [place] [address]Smhcrlmjr By: #### 33360-8 ####[facility] [id number] [place], [place] [address]EQQ (Bld) [#/Vol]24.43 10*3/uLHigh3.70-11.00[facility] Citizens HospitalComvibra hospital [facility] on above: Order Comment: Specimen Type: BLOOD SPECIMENOrdering Facility: [facility] Address:[address] [facility]SSENT[address] HEALTHGiovanna [place], [place] [address]Dvvdbvmzi By: #### 92013- 8 ####[facility] [id number] [place], [place] [address]VKAUPDpx 61-30-3464RFLLHGNsclhnAemptazkw Clinic [place] CNPNon 04-17-8787AMPGMgdjwsDiluhkxac Clinic ClevelandCORTISOL, SERUMon 10-16-3841Uexdcunt [Mass/Vol]2.2 ug/dLLow4.8 - 19.5 ug/dLLutheran Hospital on above:Provided reference range is from 6-10 AM sample collection time. Cortisol Reference Range: 6-10 AM = 4.8-19.5 ug/dL, 4-8 PM = 2.5-11.9 ug/dL Comprehensive metabolic 2000 panelon 74-73-6239Hfatyai [Mass/Vol]4.3 g/dL3.9 - 4.9 g/dLMarengo ClinicALP [Catalytic activity/Vol]63 U/L38 - 113 U/LCleveland ClinicALT [Catalytic activity/Vol]35 U/L10 - 54 U/LCleveland ClinicAnion gap [Moles/Vol]13 mmol/L8 - 15 mmol/LCleveland ClinicAST [Catalytic activity/Vol]26 U/L14 - 40 U/LCleveland ClinicBilirubin [Mass/Vol]0.2 mg/dL0.2 - 1.3 mg/dL [facility] CenterCalcium [Mass/Vol]9.3 mg/dL8.5 - 10.2 mg/dLCincinnati Va Medical Center Chloride [Moles/Vol]102 mmol/L98 - 107 mmol/LCleveland ClinicCO2 [Moles/Vol]27 mmol/L22 - 30 mmol/LCleveland ClinicCreatinine [Mass/Vol]0.76 mg/dL0.73 - 1.22 mg/dLCincinnati Va Medical CenterGFR/1.73 sq M.predicted among non-blacks MDRD (S/P/Bld) [Vol rate/Area]98 mL/min/{1.73_m2}- PINFCEast Liverpool City HospitalComment on above: Estimated Glomerular Filtration Rate (eGFR) is calculated using the 2020 CKD-EPI creatinine equation. This equation utilizes serum creatinine, sex, and age as parameters. The creatinine assay has traceable calibration to isotope dilution- mass spectrometry. Refer to KDIGO guidelines for clinical interpretation. In patients with unstable renal function, e.g. those with acute kidney injury, the eGFRmay not accurately reflect actual GFR.Glucose [Mass/Vol]139 mg/hHJzzt23 - 99 mg/dLLutheran Hospital on above:The [place] Diabetes Association (ADA) provides guidance for cutoff [...] Standards of Medical Care in Diabetes 2016, [place] Diabetes Association. Diabetes Care. 2016.39(Suppl 1). Interpretation and review of laboratory resultsAbnormalCleveland ClinicPotassium [Moles/Vol]4.3 mmol/L3.7 - 5.1 mmol/LCleveland ClinicProtein [Mass/Vol]6.9 g/dL 6.3 - 8.0 g/dLMercy Health Kings Mills Hospitalodium [Moles/Vol]142 mmol/L136 - 144 mmol/L [facility] Medical CenterUrea nitrogen [Mass/Vol]16 mg/dL9 - 24 mg/dLBarberton Citizens Hospital ClinicAlbumin [Mass/Vol]4.3 g/dLNormal3.9-4.9ClevelUNC Health Lenoirment on above:Order Comment: Specimen Type: BLOOD SPECIMENOrdering Facility: [facility] Address:[address] [place], [place] [address]Performed By: #### 75607-2 ####[facility] LABCLIA [id number] [address] [address] [place] ALP [Catalytic activity/Vol]63 U/FSvtdnn66-168AxopsuodpUC [facility] on above:Order Comment: Specimen Type: BLOOD SPECIMENOrdering Facility: [facility] Address:[address] [place] [address] Performed By: #### 50701-6 ####[facility] LABCLIA [id number] [place] [address] [place] ALT [Catalytic activity/Vol]35 U/RCxjrhu03-65DhysudfjxUC [facility] on above:Order Comment: Specimen Type: BLOOD SPECIMENOrdering Facility: [facility] Address:[address] [place] [address] Performed By: #### 74766-8 ####[facility] LABCLIA [id number] [place] [address] [place] Anion gap [Moles/Vol]13 mmol/LNormal8-15[facility] on above:Order Comment: Specimen Type: BLOOD SPECIMENOrdering Facility: [facility] Address:[address] [place], [place] [address]Performed By: #### 58611-1 ####[facility] LABCLIA [id number] [address] [address] [place] AMERICAAST [Catalytic activity/Vol]26 U/TEycqmb07-37PmadyadpuUC [facility] on above:Order Comment: Specimen Type: BLOOD SPECIMENOrdering Facility: [facility] Address:[address] [place], [place] [address]Performed By: #### 82433- 8 ####[facility] LABCLIA [id number] [address] [place] [address] [place] AMERICABilirubin [Mass/Vol]0.2 mg/dL Normal0.2-1.3CFulton County Health Center on above:Order Comment: Specimen Type: BLOOD SPECIMENOrdering Facility: [facility] Address:[address] [place], [place] [address]Performed By: #### 80919-4 ####[facility] LABCLIA [id number] [address] [address] [place] AMERICACalcium [Mass/Vol]9.3 mg/dLNormal8.5-10.2CFulton County Health Center on above:Order Comment: Specimen Type: BLOOD SPECIMENOrdering Facility: [facility] Address:[address] [place], [place] [address]Performed By: #### 22250-3 ####[facility] LABCLIA [id number] [address] [address] [place] AMERICAChloride [Moles/Vol]102 mmol/DEafnrq57-178GfbgwrvowBarberton Citizens Hospital Comment on above:Order Comment: Specimen Type: BLOOD SPECIMENOrdering Facility: [facility] Address:[address] [place] [address] Performed By: #### 40437-3 ####[facility] LABCLIA [id number] [address] [address] [place] CO2 [Moles/Vol]27 mmol/PPauopn84-19FknzmehpaUC [facility] on above: Order Comment: Specimen Type: BLOOD SPECIMENOrdering Facility: [facility] Address:[address] [place], [place] [address]Performed By: #### 85816- 8 ####[facility] LABCLIA [id number] [address] [address] [place] AMERICACreatinine [Mass/Vol]0.76 mg/dL Normal0.73-1.22[facility] on above:Order Comment: Specimen Type: BLOOD SPECIMENOrdering Facility: [facility] Address:[address] [place], [place] [address]Performed By: #### 16004-1 ####[facility] LABIA [id number] [place] [address] [place] AMERICAeGFRcr SerPlBld CKD-EPI 101935 mL/min/1.73m???Normal>=60[facility] on above:Order Comment: Specimen Type: BLOOD SPECIMENOrdering Facility: [facility] Address:[address] [place], [place] [address]Result Comment: Estimated Glomerular Filtration Rate (eGFR) is [...] not accurately reflect actual GFR.Performed By: #### 18440-2 ####[facility] DAYTONIA [id number] [address] STATES OF AMERICAGlucose [Mass/Vol]139 mg/dLHigh 74-99[facility] on above:Order Comment: Specimen Type: BLOOD SPECIMENOrdering Facility: [facility] Address:[address] [place] [address] Comment: The [place] Diabetes Association (ADA) provides guidance for cutoff [...] Standards of Medical Care in Diabetes 2016, [place] Diabetes Association. Diabetes Care. 2016.39(Suppl 1).Performed By: #### 42327-2 ####[facility] LABIA [id number] [place] [address] [place] AMERICAPotassium [Moles/Vol]4.3 mmol/L Normal3.7-5.1CFulton County Health Center on above:Order Comment: Specimen Type: BLOOD SPECIMENOrdering Facility: [facility] Address:[address] [place], [place] [address]Performed By: #### 31411-4 ####[facility] LABCLIA [id number] [place] [address] [place] AMERICAProtein [Mass/Vol]6.9 g/dLNormal6.3-8.0[facility] on above:Order Comment: Specimen Type: BLOOD SPECIMENOrdering Facility: [facility] Address:[address] [place], [place] [address]Performed By: #### 42443-3 ####[facility] LABIA [id number] [place] [address] [place] Sodium [Moles/Vol]142 mmol/AXeqwky677-713BkeeblgfoUC [facility] on above:Order Comment: Specimen Type: BLOOD SPECIMENOrdering Facility: [facility] Address:[address] [place], [place] [address]Performed By: #### 34892-7 ####[facility] LABCLIA [id number] [place] [address] [place] AMERICAUrea nitrogen [Mass/Vol]16 mg/dLNormal9-24[facility] on above:Order Comment: Specimen Type: BLOOD SPECIMENOrdering Facility: [facility] Address:[address] [place], [place] [address]Performed By: #### 62439- 8 ####[facility] LABCLIA [id number] [place] [address] [place] AMERICACortis Arminl-mCncon 11-09-2024 Cortisol [Mass/Vol]2.2 ug/dLLow4.8-19.5CFulton County Health Center on above:Order Comment: Specimen Type: BLOOD SPECIMENOrdering Facility: [facility] Address:[address] [place], [place] [address]Ivqpch Comment: Provided reference range is from 6-10 AM sample collection time.Cortisol Reference Range: 6-10 AM = 4.8-19.5 ug/dL, 4-8 PM = 2.5-11.9 ug/dLPerformed By: #### 3016-3, 2143-6 ####[facility] LABCLIA [id number] [place] [id number] [place] AMERICACortisol [Mass/Vol]on 81-23-2876Ulozaofkptwuri and review of laboratory resultsAbnormal [facility] CenterEosinophils/100 WBC Auto (Bld)Ordered By: Lo Hancock on 13-64-8974Oaookwwujie/100 WBC (Bld)0.0 %[facility] Erythrocyte distribution width Auto (RBC) [Ratio]Ordered By: Lo Hancock on 57-77-4676Swyekmogmla distribution width (RBC) [Ratio]14.9 %11.5-15.0[facility] HospitalGLUCOSE, BLOOD (POC)on 20-63-5098Heekgkt [Mass/Vol]137 mg/pFLjjjuaxy72 - 99 mg/dLCincinnati Va Medical CenterComment on above:Location:[facility], [address] [place] [address] , [place], [place], [facility] The Accu-Chek Inform II glucose meter has [...] above situations. Interpretation and review of laboratory resultsAbnoalCThe Bellevue HospitalGlomerular filtration rate [Volume Rate/Area] in Serum, Plasma or Blood by CreatinineOrdered By: Lo Hancock on 18-80-1621Urbqlewuya filtration rate [Volume Rate/Area] in Serum, Plasma or Blood by Kybkjxlvuu24 mL/min/1.73m???>=60 [facility] HospitalComment on above:Estimated Glomerular Filtration Rate (eGFR) [...] Estimated from glycated hemoglobin (Bld) [Mass/Vol]123 mg/dL [facility] HospitalComment on above:eAG: (Estimated average glucose) is a calculated value from HgbA1c and is investment representative of the average blood glucose level in the last 2-3 month period.HbA1c (Bld)on 01-20-4759Aidonjf glucose Estimated from glycated hemoglobin (Bld) [Mass/Vol]123 mg/dLLutheran Hospital on above:eAG: (Estimated average glucose) is a calculated value from HgbA1c and is investment representative of the average blood glucose level in the last 2-3 month period.HbA1c (Bld) [Mass fraction]5.9 %High4.3 - 5.6 %[facility] on above:[place] Diabetes Association guidelines indicate that patients with HgbA1c in the range 5.7-6.4% are at increased risk for development of diabetes, and intervention by lifestyle modification may be beneficial. HgbA1c greater or equal to 6.5% is considered diagnostic of diabetes. Interpretation and review of laboratory resultsAbnoOhioHealth Arthur G.[facility]. [facility], [facility], Cancer Center glucose Estimated from glycated hemoglobin (Bld) [Mass/Vol]123 mg/dLNoDayton Children's Hospital on above:Order Comment: Specimen Type: BLOOD SPECIMENOrdering Facility: [facility] Address:[address] [place] [address]Whcrqn Comment: eAG: (Estimated average glucose) is a calculated value from HgbA1c and is investment representative of the average blood glucose level in the last 2-3 month period.Performed By: #### 91450-0 ####[facility] LABCLIA [id number] [place] [address] [place] ROTJWNKCwZ1o (Bld) [Mass fraction]5.9 % High4.3-5.6CSouthview Medical CenterComvibra hospital of [facility]heastern [place] on above:Order Comment: Specimen Type: BLOOD SPECIMENOrdering Facility: [facility] Address:[facility] [place], [place] [address]Result Comment: [place] Diabetes Association guidelines indicate that patients with HgbA1c in the range 5.7-6.4% are at increased risk for development of diabetes, and intervention by lifestyle modif ication may be beneficial. HgbA1c greater or equal to 6.5% is considered diagnostic of diabetes.Performed By: #### 27307-9 ####[facility] LABCLIA [id number] [place] [id number] [place] AMERICAHematocrit Auto (Bld) [Volume fraction]Ordered By: Lo Hancock on 43-77-5925Biigonxqef (Bld) [Volume fraction]36.8 %Low39.0-51.0 [facility] HospitalHemoglobin A1c percentageOrdered By: Lo Hancock on 14-56-4022HwT3i (Bld) [Mass fraction]5.9 %High4.3-5.6FGeorgetown Behavioral HospitalComment on above:[place] Diabetes Association guidelines indicate that patients with HgbA1c in the range 5.7-6.4% are at increased risk for development of diabetes, and intervention by lifestyle modification may be b eneficial. HgbA1c greater or equal to 6.5% is considered diagnostic of diabetes. Hemoglobin [Mass/volume] in BloodOrdered By: Lo Hancock on 11-09-2024 Hemoglobin (Bld) [Mass/Vol]12.4 g/dLLow13.0-17.0[facility] HospitalLaboratory - Chemistry and Chemistry - challengeOrdered By: Lo Hancock on 30-04-4533Zgijdiq [Mass/Vol]4.3 g/dL3.9-4.9[facility] HospitalALP [Catalytic activity/Vol]63 U/D79-164GqyizuzgiMagruder Memorial HospitalALT [Catalytic activity/Vol]35 U/Y67-06HeejohhfpMagruder Memorial Hospital AST [Catalytic activity/Vol]26 U/I17-04SwfxkllipMagruder Memorial Hospital Bilirubin [Mass/Vol]0.2 mg/dL0.2-1.3FGeorgetown Behavioral HospitalCalcium [Mass/Vol]9.3 mg/dL8.5-10.2FGeorgetown Behavioral HospitalChloride [Moles/Vol] 102 mmol/H37-377KzrdktqchMagruder Memorial HospitalCO2 [Moles/Vol]27 mmol/L22-30 [facility] HospitalCreatinine [Mass/Vol]0.76 mg/dL0.73-1.22 [facility] HospitalGlucose [Mass/Vol]139 mg/dWEukd29-61XalcpeiwaMagruder Memorial HospitalComment on above:The [place] Diabetes Association (ADA) provides guidance for cutoff [...] diabetes.Reference: Standardsof Medical Care in Diabetes 2016, [place] Diabetes Association. Diabetes Care. 2016.39(Suppl 1).Potassium [Moles/Vol]4.3 mmol/L 3.7-5.1FMemorial Health Systemodium [Moles/Vol]142 mmol/X228-486 [facility] HospitalTSH Qn0.362 m[IU]/L0.270-4.200[facility] HospitalUrea nitrogen [Mass/Vol]16 mg/dL9-24[facility] HospitalLaboratory - Hematology and Cell countsOrdered By: Lo Hancock on 71-18-4200Xtphyxoojaf (Bld) [#/Vol]10*3/uL<0.46[facility] HospitalImst. louis children's hospital granulocytes (Bld) [#/Vol]0.32 10*3/uLHigh<0.10[facility] HospitalImvature granulocytes/100 WBC (Bld)1.3 %[facility] HospitalLeukocytes [#/volume] corrected for nucleated erythrocytes in Blood by Automated counOrdered By: Lo Hancock on 40-23-9296NXO corrected for nucl RBC Auto (Bld) [#/Vol]24.43 k/uLHigh3.70-11.00[facility] HospitalLymphocytes Auto (Bld) [#/Vol]Ordered By: Lo Hancock on 35-92-8606Ilgfjcmwefz (Bld) [#/Vol]1.47 10*3/uL1.00-4.00[facility] HospitalLymphocytes/100 WBC Auto (Bld)Ordered By: Lo Hancock on 39-35-5483Fguzlyzgeol/100 WBC (Bld)6.0 %[facility] - WestH Auto (RBC) [Entitic mass]Ordered By: Lo Hancock on 17-97-2650KWO (RBC) [Entitic mass]29.4 pg26.0-34.0[facility] HospitalMCHC Auto (RBC) [Mass/Vol]Ordered By: Lo Bergeronankbrennan on 21-31-3866KAYC (RBC) [Mass/Vol]33.7 g/dL30.5-36.0[facility] HospitalMCV Auto (RBC) [Entitic vol] Ordered By: Lo Bergeronankbrennan on 32-08-2130OJU (RBC) [Entitic vol]87.2 fL 80.0-100.0[facility] HospitalMonocytes Auto (Bld) [#/Vol]Ordered By: Lo Rubioankar on 74-82-2266Ehknwyrzu (Bld) [#/Vol]0.89 10*3/uLHigh<0.87 [facility] HospitalMonocytes/100 WBC Auto (Bld)Ordered By: Lo Hancock on 25-96-3587Avqtpjynv/100 WBC (Bld)3.6 %[facility] HospitalNM PET/CT SKULL-THIGH SUBQon 18-23-1032RK PET/CT SKULL-THIGH SUBQNormal [facility] ClevelandNeutrophils Auto (Bld) [#/Vol]Ordered By: Lo Hancock on 99-57-3242Xdpuhvwofnm (Bld) [#/Vol]21.70 10*3/uLHigh1.45-7.50 [facility] HospitalNeutrophils/100 WBC Auto (Bld)Ordered By: Lo Hancock on 79-75-3745Fsqnugoathw/100 WBC (Bld)88.9 %[facility] HospitalNo Panel Informationon 57-38-9835Qxjontjsz ClinicNucleated RBC Auto (Bld) [#/Vol]Ordered By: Lo Hancock on 34-41-0956Clzwolndh RBC (Bld) [#/Vol]10*3/uL<0.01[facility] HospitalNucleated erythrocytes [Presence] in Blood by Automated countOrdered By: Lo Hancock on 11-09-2024 Nucleated RBC Auto Ql (Bld)0.0 /100{WBC}[facility] HospitalPET+CT Guidance for localization of tumor of [...] * Uptake Time: 61 minutes * Radiopharmaceutical: Q56-Zmchpsirdnntooriiw (FDG) COMPARISON: 08/03/2024 CORRELATION: 07/29/2024 [facility] neck CTA report RESULT: REFERENCES: FDG [...] any questions regarding this interpretation, please call [phone]. If you are unable to reach us at the number above, please feel free to contact [facility] Hospitaliology at [phone].DIVISION OF RADIOLOGYProvider, [facility] Imaging Datto - 11/09/2024 * * *Final Report* * [...] * Uptake Time: 61 minutes * Radiopharmaceutical: J14-Potppyswtocctywekk (FDG) COMPARISON: 08/03/2024 CORRELATION: 07/29/2024 [facility] neck CTA report RESULT: REFERENCES: FDG [...] any questions regarding this interpretation, please call [phone]. If you are unable to reach us at the number above, please feel free to contact [facility] eRadiology at [phone]. [facility] Medical CenterRadiology Study observation (narrative)[facility]+CT Guidance for localization of tumor of Skull base to mid-thigh-- W 18F-FDG IV Ordered By: Ccf Provider on 34-29-1996Resebufsr ClinicPlatelet mean volume Auto (Bld) [Entitic vol]Ordered By: Lo Hancock on 70-54-5923Kfszyjdk mean volume (Bld) [Entitic vol]9.7 fL9.0-12.7FGeorgetown Behavioral HospitalPlatelets Auto (Bld) [#/Vol]Ordered By: Lo Hancock on 63-05-5053Ilinalhtf (Bld) [#/Vol]296 10*3/tX433-102SdedgrjudMagruder Memorial HospitalProtein [Mass/volume] in Serum or PlasmaOrdered By: Lo Hancock on 43-27-8728Lnypeue [Mass/Vol]6.9 g/dL 6.3-8.0[facility] HospitalRBC Auto (Bld) [#/Vol]Ordered By: Lo Hancock on 07-83-4100CTL (Bld) [#/Vol]4.22 10*6/uL4.20-6.00[facility] Medical Centererum or plasma anion gap determinationOrdered By: Lo Hancock on 62-90-6688Ifvmn gap [Moles/Vol]13 mmol/L8-15[facility] HospitalTHYROID STIMULATING HORMONEon 86-88-8750ITZ Qn0.362 m[IU]/LCleveland ClinicTSH Qnon 96-70-9167Khoihvsqpfbmpo and review of laboratory resultsNormal [facility] SerPl-aCncon 00-06-5067XTD Qn0.362 m[IU]/LNormal0.270-4.200 [facility] Citizens HospitalComvibra hospital of [facility]heastern [place] on above:Order Comment: Specimen Type: BLOOD SPECIMENOrdering Facility: [facility] Address:[address] [place], [place] [address]Performed By: #### 3016-3, 2143-6 ####[facility] LABCLIA [id number] [address] STATES OF [facility] HEALTH SYSTEMCNPNon 15-49-3183EMDQWyjuytHlxkstfox Clinic ClevelandCNPNon 30-64-3279XWNBYvnsjxCasjqqlkm [facility] ClevelandCNPNon [id number] [facility] HospitalE[facility] echo transthoracicon [id number] echo transthoracicUNIVERSITY [facility] [address] Echocardiogram Signed Patient: Erin Pena MR#: [id number] 8 : 1955 Acct:[id number] Age/Sex: 68 / M ADM Date: 10/27/24 Loc: Room: [address] [place] [address] Type: ADM IN Attending Dr: Clarence Stevens [...] systole: 5.0 mmHg Measurements from QLAB CI (HM): ED Mass (HM): LAEF (HM): 66.0 % BSA (HM): 1.9 m2 176.0 grams 2.9 l/min/m2 __ BRIAN (HM): LAVmax (HM): LAVmin (HM): 27.0 mlPat Height (HM): 42.0 ml/m2 80.0 ml 168.0 cm __ Pat Weight (HM): 81.4 kg QLAB Heart Model EDV (HM)_phl: 123.0 ml EF (HM)_phl: 60.0 % ED Current ()_phl: 60.0 % ESV ()_phl: 50.0 ml HR (HM)_phl: 75.0 BPMES Current (HM)_phl: 30.0 % LV Length ED ()_phl: 86.0 mmSV ()_phl: 74.0 ml ED Default ()_phl: 60.0 % LV Length ES ()_phl: 62.0 mm ES Default ()_phl: 30.0 % (more content not included)...NormalThe [facility] Physician [facility] MadisonBNP ser/plasOrdered By: Wendy Ochoa on 39-72-5884Ogtxunaqwom peptide B (Bld) [Mass/Vol]18.0 pg/mL Normal5-100Mag[facility]uder Memorial HospitalComment on above:Result Comment: PERFORMED BY: [facility] [address] [place] [address] PATHOLOGIST [employer] TEAM MEMBER GUADALUPE FREITAS M.D.Performed By: #### BNP, CBC, BMP, HS TROP #### [facility] [address] [place] [address] USABasic Metabolic Panelon 31-82-9732Lyyjaxfnuz Clr Calc Swmfxfqn57.70NormalThe [facility] Physician [facility] Health MadisonComment on above:Result Comment: PERFORMED BY: [place] [address] PATHOLOGIST [employer] TE[employer] MEMBER GUADALUPE FREITAS M.D.Performed By: #### BNP, CBC, BMP, HS TROP #### [place] [address] USAGFR/1.73 sq M.predicted MDRD (S/P/Bld) [Vol rate/Area] mL/min/{1.73_m2}NormalThe [facility] Physician GroupComment on above:Performed By: #### BNP, CBC, BMP, HS TROP #### [place] [address] USABasophils [#/volume] in Blood by Automated countOrdered By: Wendy Ochoa on 21-36-0166Bilasmfnj (Bld) [#/Vol]0.1 10*3/uLNormal0.0-0.2 [facility] HospitalComment on above:Result Comment: PERFORMED BY: [place] [address] PATHOLOGIST [employer] TE[employer]BER GUADALUPE FREITAS M.D.Performed By: #### BNP, CBC, BMP, HS TROP #### [place] [address] USABasophils/100 leukocytes in Blood by Automated count Ordered By: Wendy Ochoa on 63-46-5363Ismdvdbzn/100 WBC (Bld)0.5 %Normal. [facility] HospitalComment on above:Performed By: #### BNP, CBC, BMP, HS TROP #### [place] [id number] USABioFire Not Detectedon 19-43-2427CwyYzgq Not DetectedNot detectedNormalNot DetecteThe [facility] Physician GroupComment on above:Result Comment: This is a duplicate RP2.1 COVID (PCR) result to be used for statistical tracking purpose only. PERFORMED BY: [place] [address] PATHOLOGIST [employer] TE[employer]BER GUADALUPE FREITAS M.D.Performed By: #### RESP PANEL UPP., BIOFIRECOVNOTDE #### [facility] [address] [place] [address] USACOVID-19 Detected/Not DetectedOrdered By: Wendy Ochoa on 98-72-1246RMPW-CoV-2 (COVID-19) RNA ZEINAB+non-probe Ql (Nph)Not detectedNot DetectTriHealth Bethesda North HospitalComment on above:This is a duplicate RP2.1 COVID (PCR) result to be used for statistical tracking purpose only.CT angio chest PE protocolon 90-19-1126WL angio chest PE protocolUNIVERSITY H[facility]ALS [facility] Main [place] [address] [place] [id number] Scan Report Signed Patient: Erin Pena MR#: [id number] 8 : 1955 Acct:[id number] Age/Sex: 68 / M ADM Date: 10/27/24 Loc: ER Room: Type: [facility] ER Attending Dr: Copies to: Wendy [...] Chaudhary M.D. 10/27/2024 4:59 PM Dictation Location: [place] [address] Transcribed By: [facility] 10/27/241658 Dictated By: Mihai Chaudhary II, MD 10/27/241652 Signed By: 10/27/24 [facility] HospitalSt[facility] Physician GroupCalcium [Mass/volume] in Serum or PlasmaOrdered By: Wendy Ochoa on 12-67-5664Vrzixiu [Mass/Vol]9.4 mg/dL Normal8.6-10.3FGeorgetown Behavioral HospitalComment on above:Performed By: #### BNP, CBC, BMP, HS TROP #### [facility] [address] [place] [address] USACarbon dioxide, total [Moles/volume] in Serum or Plasma Ordered By: Wendy Ochoa on 03-16-4377DK8 [Moles/Vol]30.8 mmol/LNormal 21.0-31.0[facility] Memorial HospitalComment on above:Performed By: #### BNP, CBC, BMP, HS TROP #### [facility] [address] [place] [address] USAChloride [Moles/volume] in Serum or PlasmaOrdered By: Wendy Ochoa on 15-48-3010Muotpbak [Moles/Vol]102 mmol/WFwepwk85-155WreuyuazsMagruder Memorial HospitalComment on above:Performed By: #### BNP, CBC, BMP, HS TROP #### [facility] [address] [place] [address] USAComplete Blood Count Auto Diffon 97-94-8356Hqau Corpuscular HGB Conc34.6 g/uMCywwdm51.5-35.6The [facility] Physician GroupComment on above:Performed By: #### BNP, CBC, BMP, HS TROP #### [place] [address] USAMonocytes/100 WBC (Bld)17.23 %Normal0.00-20.00The [facility] Physician [facility] Health MadisonComment on above:Performed By: #### BNP, CBC, BMP, HS TROP #### [place] [address] USANRBC%0.2 /100{WBC}Normal0-0.5The [facility] Physician Group Comment on above:Performed By: #### BNP, CBC, BMP, HS TROP #### [place] [address] USAWhite Blood Count9.8 [CFU]/mLNormal4.1-10.5The [facility] Physician [facility] Health MadisonComment on above:Performed By: #### BNP, CBC, BMP, HS TROP #### [place] [address] USACreatinine [Mass/volume] in Serum or PlasmaOrdered By: Wendy Ochoa on 67-25-8436Xxakqpltex [Mass/Vol]0.77 mg/dLNormal0.70-1.30 [facility] HospitalComment on above:Performed By: #### BNP, CBC, BMP, HS TROP #### [place] [address] USAECG 12 lead ECGon 07-46-2154QKW 12 lead ECGUNIVERSITY HOS[facility]ALS [facility] [address] Electrocardiograph Report Signed Patient: Erin Pena MR#: [id number] 8 : 1955 Acct:[id number] Age/Sex: 68 / M ADM Date: 10/27/24 Loc: ER Room: Type: [facility] ER Attending Dr: Ordering Provider: Wendy [...] Rightward axis Confirmed by Wendy Ochoa MD ([id number]) on 10/27/2024 5:40:37 PM Referred By: Electronically Signed By: Wendy Ochoa MD Transcribed By: MUS Signed By Wendy Ochoa MD 10/06 05/29 1740[facility] Physician GroupEosinophils [#/volume] in Blood by Automated countOrdered By: Wendy Ochoa on 22-56-3992Kkfbiagasld (Bld) [#/Vol] 1.1 10*3/uLHigh0.0-0.45[facility] Memorial HospitalComment on above: Performed By: #### BNP, CBC, BMP, HS TROP #### [facility] [address] [place] [id number] USAEosinophils/100 leukocytes in Blood by Automated count Ordered By: Wendy Ochoa on 79-85-7831Dbiykfuryaa/100 WBC (Bld)11.7 %Normal. [facility] HospitalComment on above:Performed By: #### BNP, CBC, BMP, HS TROP #### [facility] [address] [place] [id number] USAErythrocyte distribution width [Ratio] by Automated count Ordered By: Wendy Ochoa on 58-67-6751Gcyrvpshqzf distribution width (RBC) [Ratio]14.9 %High12.0-14.8[facility]uder Memorial HospitalComment on above: Performed By: #### BNP, CBC, BMP, HS TROP #### [facility] [address] [place] [id number] USAErythrocytes [#/volume] in Blood by Automated countOrdered By: Wendy Ochoa on 62-30-5853OAN (Bld) [#/Vol]4.67 10*6/uLNormal3.90-5.60 [facility] HospitalComment on above:Performed By: #### BNP, CBC, BMP, HS TROP #### [facility] [address] [place] [address] USAGlomerular filtration rate [Volume Rate/Area] in Serum, Plasma or Blood by CreatinineOrdered By: Wendy Ochoa on 91-63-6579Qdlxvyesnv filtration rate [Volume Rate/Area] in Serum, Plasma or Blood by Creatinine> 60.0 mL/MinMagruder Memorial HospitalGlucose [Mass/volume] in Serum or Plasma Ordered By: Wendy Ochoa on 63-04-7271Iwqotgu [Mass/Vol]191 mg/vMTogf63-203 [facility] HospitalComment on above:ADA recommended reference rangeRandom Glucose [...] #### BNP, CBC, BMP, HS TROP #### [facility] [address] [place] [address] USAHematocrit [Volume Fraction] of Blood by Automated count Ordered By: Wendy Ochoa on 73-96-8780Tnrqkfsujr (Bld) [Volume fraction]39.9 % Dylsfj40.8-50.0[facility] Memorial HospitalComment on above:Performed By: #### BNP, CBC, BMP, HS TROP #### [facility] [address] [place] [address] USAHemoglobin [Mass/volume] in BloodOrdered By: Wendy Ochoa on 76-44-0207Ohgrraatpl (Bld) [Mass/Vol]13.8 g/iMScriep61.0-17.0 [facility] HospitalComment on above:Performed By: #### BNP, CBC, BMP, HS TROP #### [facility] [address] [place] [address] USALeukocytes [#/volume] corrected for nucleated erythrocytes in Blood by Automated counOrdered By: Wendy Ochoa on 63-96-0756SSZ corrected for nucl RBC Auto (Bld) [#/Vol]9.8 10*3/uL4.1-10.5FGeorgetown Behavioral HospitalLeukocytes [#/volume] in Blood by Automated countOrdered By: Wendy Ochoa on 51-46-0786GGZ (Bld) [#/Vol]9.8 10*3/uLNormal4.1-10.5FGeorgetown Behavioral HospitalComment on above:Performed By: #### BNP, CBC, BMP, HS TROP #### [facility] [address] [place] [address] USALymphocytes [#/volume] in Blood by Automated countOrdered By: Wendy Ochoa on 11-98-0008Ndrwxvpzeco (Bld) [#/Vol]1.8 10*3/uLNormal 1.00-4.8[facility] HospitalComment on above:Performed By: #### BNP, CBC, BMP, HS TROP #### [facility] [address] [place] [id number] USALymphocytes/100 leukocytes in Blood by Automated count Ordered By: Wendy Ochoa on 33-23-3603Teuelkikbmu/100 WBC (Bld)18.3 %Normal. [facility] HospitalComment on above:Performed By: #### BNP, CBC, BMP, HS TROP #### [facility] [address] [place] [address] [facility] [Entitic mass] by Automated countOrdered By: Wendy Ochoa on 47-17-4274QFU (RBC) [Entitic mass]29.5 hmGykgix42.5-35.2FGeorgetown Behavioral HospitalComment on above:Performed By: #### BNP, CBC, BMP, HS TROP #### [facility] [address] [place] [id number] [facility]SAHC Auto (RBC) [Mass/Vol]Ordered By: Wendy Ochoa on 08-25-5201OPPE (RBC) [Mass/Vol]34.6 g/dL32.5-35.6FGeorgetown Behavioral HospitalMCV [Entitic volume] by Automated countOrdered By: Wendy Ochoa on 10-26-2546OJY (RBC) [Entitic vol]85.5 uPJfpazx67.5-101[facility] HospitalComment on above:Performed By: #### BNP, CBC, BMP, HS TROP #### [facility] [address] [place] [address] USAMonocyte distribution width [Entitic volume] in Blood by AutomatedOrdered By: Wendy Ochoa on 79-89-3643Onwszopx distribution width Auto (Bld) [Entitic vol]17.23 %0.00-20.00[facility] Monocytes [#/volume] in Blood by Automated countOrdered By: Wendy Ochoa on 59-10-8578Rmujaptnu (Bld) [#/Vol]0.7 10*3/uLNormal0.0-0.8[facility] Memorial HospitalComment on above:Performed By: #### BNP, CBC, BMP, HS TROP #### [facility] [address] [place] [id number] USAMonocytes/100 leukocytes in Blood by Automated count Ordered By: Wendy Ochoa on 40-19-0030Lhtulhyal/100 WBC (Bld)6.8 %Normal. [facility] HospitalComment on above:Performed By: #### BNP, CBC, BMP, HS TROP #### [facility] [address] [place] [address] USANeutrophils [#/volume] in Blood by Automated countOrdered By: Wendy Ochoa on 43-49-6469Buigiksyoug (Bld) [#/Vol]6.1 10*3/uLNormal 1.8-7.7FGeorgetown Behavioral HospitalComment on above:Performed By: #### BNP, CBC, BMP, HS TROP #### [facility] [address] [place] [address] USANeutrophils/100 leukocytes in Blood by Automated count Ordered By: Wendy Ochoa on 74-85-7502Acbfqbbussr/100 WBC (Bld)62.7 %Normal. [facility] HospitalComment on above:Performed By: #### BNP, CBC, BMP, HS TROP #### [facility] [address] [place] [address] USANo Panel InformationOrdered By: Wendy Ochoa on 87-34-4111Nwjabmss Creatinine Clearance (Chem88.70[facility]uder Memorial HospitalNucleated erythrocytes [Presence] in Blood by Automated countOrdered By: Wendy Ochoa on 10-67-3364Yzpaplbvh RBC Auto Ql (Bld)0.2 /100{WBC}0-0.5 [facility] Memorial HospitalPlatelet mean volume [Entitic volume] in Blood by Automated countOrdered By: Wendy Ochoa on 12-83-5881Sclgzxtt mean volume (Bld) [Entitic vol]7.9 fLNormal6.6-10.1FGeorgetown Behavioral HospitalComment on above:Performed By: #### BNP, CBC, BMP, HS TROP #### [facility] [address] [place] [address] USAPlatelets [#/volume] in Blood by Automated countOrdered By: Wendy Ochoa on 94-32-7959Bkaitkczl (Bld) [#/Vol]343 10*3/rFCfnczm460-764 [facility] HospitalComment on above:Performed By: #### BNP, CBC, BMP, HS TROP #### [facility] [address] [place] [address] USAPotassium [Moles/volume] in Serum or PlasmaOrdered By: Wendy Ochoa on 64-12-3603Gjyrrkizg [Moles/Vol]3.7 mmol/LNormal3.5-5.1 [facility] HospitalComment on above:Performed By: #### BNP, CBC, BMP, HS TROP #### [facility] [address] [place] [address] USARespiratory (Upper) Panel, PCRon 71-76-5683Iyinfdbbinm (Upper) Panel, PCRAdenovirus Not detected Bordetella parapertussis [...] Influenza A H3 Blank Space PERFORMED BY: [place] [address] PATHOLOGIST [employer] TEAM MEMBER GUADALUPE FREITAS M.D.[facility] County Physician GroupComment on above: Performed By: #### RESP PANEL UPP., BIOFIRECOVNOTDE #### [facility] [address] [place] [address] USARespiratory pathogens DNA and RNA panel - Nasopharynx by ZEINAB with non-probe detectionOrdered By: Wendy Ochoa on 09-75-4616Pqwvhetnlar pathogens DNA and RNA panel ZEINAB+non-probe (Nph)[facility] Serum or plasma anion gap determinationOrdered By: Wendy Ochoa on 10-27-2024 Anion gap [Moles/Vol]10.9 mmol/LNormal6.0-15.0[facility] Comment on above:Performed By: #### BNP, CBC, BMP, HS TROP #### [facility] [address] [place] [address] USASodium [Moles/volume] in Serum or PlasmaOrdered By: Wendy Ochoa on 16-49-9696Dbvpcj [Moles/Vol]140 mmol/XZxubqp366-245RdrbcsfduMagruder Memorial HospitalComment on above:Performed By: #### BNP, CBC, BMP, HS TROP #### [address] [address] USATroponin I High Sensitivityon 79-85-7121Ltjedjfs I High Wkzvzxncuql2Vbumno6-99Oti [facility] Physician GroupComment on above:Result Comment: The Troponin units of report have been changed to meet the Chest Pain Accreditation requirement, element EC5.M1l2. Troponin units are changed from pg/ml to ng/L. Also, the decimal is removed and results are in whole numbers. PERFORMED BY: [place] [address] PATHOLOGIST [employer] TE[employer] MEMBER GUADALUPE FREITAS M.D.Performed By: #### HS TROP #### [place] [address] USATroponin I High Qrzralikrda3Grmlem7-66Azt [facility] Physician GroupComment on above:Result Comment: The Troponin units of report have been changed to meet the Chest Pain Accreditation requirement, element EC5.M1l2. Troponin units are changed from pg/ml to ng/L. Also, the decimal is removed and results are in whole numbers. PERFORMED BY: [place] [address] PATHOLOGIST [employer] TEAM MEMBER GUADALUPE FREITAS M.D.Performed By: #### BNP, CBC, BMP, HS TROP #### [place] [id number] USATroponin I.cardiac [Mass/volume] in Serum or Plasma by Detection limit <= 0.01 ng/mLOrdered By: Wendy Ochoa on 31-39-4019Heugtxii I.cardiac DL <= 0.01 ng/mL [Mass/Vol]3 ng/L[address] [place] [address] Comment on above:The Troponin units of report have been changed to meet the Chest Pain Accreditation requirement, element EC5.M1l2. Troponin units are changed from pg/ml to ng/L. Also, the decimal is removed and results are in whole numbers.Urea nitrogen [Mass/volume] in Serum or PlasmaOrdered By: Wendy Ochoa on 03-31-4815Nxuv nitrogen [Mass/Vol]13 mg/dLNormal7-[facility] HospitalComment on above:Performed By: #### BNP, CBC, BMP, HS TROP #### [facility] [address] [place] [address] USANo Panel InformationOrdered By: Radiologist Radiology on 16-21-9329QQJ[facility] Work Phone: No Panel Informationon 90-70-4095Ulzinmgua Study observation (narrative)[facility]OM[facility] HealthcareXR CHEST 2V FRONTAL/LATon [...] any questions regarding this interpretation, please call [phone]. If you are unable to reach us at the number above, please feel free to contact [facility] eRadiology at [phone]. [id number]^AGFA_IDC^SI^ACNCCFRadiology, RadiologistMD - 10/26/2024 * * *Final Report* * [...] any questions regarding this interpretation, please call [phone]. If you are unable to reach us at the number above, please feel free to contact [facility] eRadiology at [phone]. [id number]^AGFA_IDC^SI^ACN [facility] HealthcareXR CHEST 2V FRONTAL/LATNormalCSouthview Medical CenterXR Chest PA and Lateralon 10-26-2024* * *Final [...] within the thoracic spine. DIVISION OF RADIOLOGYProvider, [facility] Imaging Datto - 10/26/2024 * * *Final Report* * [...] any questions regarding this interpretation, please call [phone]. If you are unable to reach us at the number above, please feel free to contact [facility] eRadiology at [phone]. [facility] Medical CenterCNPNon 01-99-8511NSGSQxlxasTuvzlvcsz Clinic ClevelandCBC W Auto Differential panel (Bld)on 68-42-9452Wsxpftfth (Bld) [#/Vol]0.04 10*3/uLNINF [facility] CenterDifferential cell count method Nom (Bld)AutoCEast [facility] Eosinophils (Bld) [#/Vol]0.81 10*3/uLHighNINFCincinnati Va Medical CenterImmature granulocytes (Bld) [#/Vol]NINFCEast Liverpool City HospitalImmature granulocytes/100 WBC (Bld)0.3 %[facility] Medical CenterLymphocytes (Bld) [#/Vol]1.62 10*3/uLCincinnati Va Medical Center Monocytes (Bld) [#/Vol]0.65 10*3/uLNIKindred HealthcareNeutrophils (Bld) [#/Vol] 4.62 10*3/[facility]uffton HospitalNucleated RBC (Bld) [#/Vol]NINMadison Health Nucleated RBC/100 WBC (Bld) [Ratio]0 %/100 WBCCincinnati Va Medical CenterPlatelet mean volume (Bld) [Entitic vol]9.3 fL9.0 - 12.7 fLCEast Liverpool City HospitalPlatelets (Bld) [#/Vol]268 10*3/uLCincinnati Va Medical CenterWBC (Bld) [#/Vol]7.76 10*3/uLCincinnati Va Medical Center Basophils (Bld) [#/Vol]0.04 10*3/uLNormal<0.11CSouthview Medical CenterComment on above:Order Comment: Specimen Type: BLOOD SPECIMENOrdering Facility: [facility] Address:[address] [place] [address] Performed By: #### 59837-7 ####[facility] LAB[facility] [id number] [place], [place] [address]Rxquvguwp/100 WBC (Bld)0.5 % NormalUC [facility] Hospital on above:Order Comment: Specimen Type: BLOOD SPECIMENOrdering Facility: [facility] Address:[address] [place], [place] [address]Performed By: #### 68828-1 ####[facility] LABCL[facility] [id number] [place] [address] Differential cell count method Nom (Bld)AutoNormalClevelCritical access hospital Comment on above:Order Comment: Specimen Type: BLOOD SPECIMENOrdering Facility: [facility] Address:[address] [place] [address] Performed By: #### 59445-1 ####[facility] LAB[facility] [id number] [place], [place] [address]Fzstulfonlq (Bld) [#/Vol]0.81 10*3/uLHigh<0.46[facility] on above:Order Comment: Specimen Type: BLOOD SPECIMENOrdering Facility: [facility] Address:[address] [place], [place] [address]Performed By: #### 84468-2 ####[facility] LAB[facility] [id number] [place], [place] [address]Mzujzbwoxwr/100 WBC (Bld)10.4 %NormalUC West Chester Hospital on above:Order Comment: Specimen Type: BLOOD SPECIMENOrdering Facility: [facility] Address:[address] [place], [place] [address]Performed By: #### 52149-0 ####[facility] LAB[facility] [id number] [place], [place] [address]Iqdbvelglkl distribution width (RBC) [Ratio]14.0 %Epfaxj85.5-15.0[facility] on above: Order Comment: Specimen Type: BLOOD SPECIMENOrdering Facility: [facility] Address:[address] [place], [place] [address]Performed By: #### 63796- 8 ####[facility] [id number] [place], [place] [address]Gusgqqsjrl (Bld) [Volume fraction]37.4 %Low39.0-51.0 [facility] on above:Order Comment: Specimen Type: BLOOD SPECIMENOrdering Facility: [facility] Address:[address] [place], [place] [address]Performed By: #### 58405-0 ####[facility] [id number] [place], [place] [address]Cljzupzdgr (Bld) [Mass/Vol]12.7 g/dLLow13.0-17.0[facility] on above:Order Comment: Specimen Type: BLOOD SPECIMENOrdering Facility: [facility] Address:[address] [place], [place] [address]Performed By: #### 59513- 8 ####[facility] [id number] [place], [place] [address]Nectxkph granulocytes (Bld) [#/Vol]10*3/uLNormal<0.10 [facility] on above:Order Comment: Specimen Type: BLOOD SPECIMENOrdering Facility: [facility] Address:[address] [place], [place] [address]Performed By: #### 09439-6 ####[facility] [id number] [place], [place] [address]Wlqpsjgn granulocytes/100 WBC (Bld)0.3 %NormalUC West Chester Hospital on above: Order Comment: Specimen Type: BLOOD SPECIMENOrdering Facility: [facility] Address:[address] [place], [place] [address]Performed By: #### 61894- 8 ####[facility] [id number] [place], [place] [address]Fxkzdyhkcgc (Bld) [#/Vol]1.62 10*3/uLNormal1.00-4.00 [facility] on above:Order Comment: Specimen Type: BLOOD SPECIMENOrdering Facility: [facility] Address:[address] [place], [place] [address]Performed By: #### 26602-3 ####[facility] [id number] [place], [place] [address]Nijfrycjxot/100 WBC (Bld)20.9 %NormalUC West Chester Hospital on above:Order Comment: Specimen Type: BLOOD SPECIMENOrdering Facility: [facility] Address:[address] [place], [place] [address]Performed By: #### 65049-5 ####[facility] [id number] [place], [place] [address]RXE (RBC) [Entitic mass]29.8 dhCnqknf60.0-34.0[facility] on above:Order Comment: Specimen Type: BLOOD SPECIMENOrdering Facility: [facility] Address:[address] [place], [place] [address]Performed By: #### 51489-4 ####[facility] LABIA [id number] [place], [place] [address]QCDK (RBC) [Mass/Vol]34.0 g/pDYxofne68.5-36.0[facility] on above: Order Comment: Specimen Type: BLOOD SPECIMENOrdering Facility: [facility] Address:[address] [place], [place] [address]Performed By: #### 78000- 8 ####[facility] LAB[facility] [id number] [place], [place] [address]SNT (RBC) [Entitic vol]87.8 sZWnrpyc84.0-100.0[facility] on above:Order Comment: Specimen Type: BLOOD SPECIMENOrdering Facility: [facility] Address:[address] [place], [place] [address]Performed By: #### 05710-4 ####[facility] [id number] [place], [place] [address]Jkinhpgvj (Bld) [#/Vol]0.65 10*3/uLNormal<0.87[facility] on above:Order Comment: Specimen Type: BLOOD SPECIMENOrdering Facility: [facility] Address:[address] [place], [place] [address]Performed By: #### 27989- 8 ####[facility] [id number] [place], [place] [address]Fvsosgcqr/100 WBC (Bld)8.4 %NormalUC West Chester Hospital on above:Order Comment: Specimen Type: BLOOD SPECIMENOrdering Facility: [facility] Address:[address] [place], [place] [address]Performed By: #### 51416-3 ####[facility] [id number] [place], [place] [address]Jxunlhiualy (Bld) [#/Vol]4.62 10*3/uLNormal1.45-7.50[facility] on above:Order Comment: Specimen Type: BLOOD SPECIMENOrdering Facility: [facility] Address:[address] [place], [place] [address]Performed By: #### 81217-3 ####[facility] [id number] [place], [place] [address]Upegfmarafz/100 WBC (Bld)59.5 %NormalUC West Chester Hospital on above:Order Comment: Specimen Type: BLOOD SPECIMENOrdering Facility: [facility] Address:[address] [place], [place] [address]Performed By: #### 57989-6 ####[facility] [id number] [place], [place] [address]Seldgecpg RBC (Bld) [#/Vol] 10*3/uLNormal<0.01[facility] on above:Order Comment: Specimen Type: BLOOD SPECIMENOrdering Facility: [facility] Address:[address] [place], [place] [address]Performed By: #### 07943-5 ####[facility]CL[facility] [id number] [place], [place] [address]Tcfaeukcs RBC/100 WBC (Bld) [Ratio]0.0 /100 WBCNormal [facility] on above:Order Comment: Specimen Type: BLOOD SPECIMENOrdering Facility: [facility] Address:[address] [place], [place] [address]Performed By: #### 58451-9 ####[facility] LABIA [id number] [place], [place] [address]Jvowedch mean volume (Bld) [Entitic vol]9.3 fLNormal9.0-12.7CFulton County Health Center on above:Order Comment: Specimen Type: BLOOD SPECIMENOrdering Facility: [facility] [facility] Address:[address] [place] [address] Performed By: #### 02312-7 ####[facility] [id number] [place], [place] [address]Zsgkynznn (Bld) [#/Vol]268 10*3/lCCpoizn164-725ZswatlvflUC [facility] on above:Order Comment: Specimen Type: BLOOD SPECIMENOrdering Facility: [facility] Address:[address] [place], [place] [address]Performed By: #### 64267-5 ####[facility] [id number] [place], [place] [address]ZPF (Bld) [#/Vol]4.26 10*6/uLNormal4.20-6.00[facility] on above:Order Comment: Specimen Type: BLOOD SPECIMENOrdering Facility: [facility] Address:[address] [place], [place] [address]Performed By: #### 99053-9 ####[facility] [id number] [place], [place] [address]MKN (Bld) [#/Vol]7.76 10*3/uLNormal3.70-11.00[facility] on above: Order Comment: Specimen Type: BLOOD SPECIMENOrdering Facility: [facility] Address:[address] [place], [place] [address]Performed By: #### 88103- 8 ####[facility] SYSTEMSMARIBEL [facility] LABCLIA [id number] [place], [place] [address]ATS CBC W AUTO DIFF BLDon 08-65-2726KSI BASOPHILS # BLD AUTO0.04NINFAlvin J. Siteman Cancer Center DIFFERENTIAL METHOD BLDAutoNOMSaint Luke's North Hospital–[facility]ville EOSINOPHIL # BLD AUTO0.81HighNINFAlvin J. Siteman Cancer Center LYMPHOCYTES # BLD AUTO1.62 NOMS Regional Medical CenterF MONOCYTES # BLD AUTO0.65NINFThe Rehabilitation Institute of St. LouisF NEUTROPHILS # BLD AUTO4.62NOCooper County Memorial Hospital NRBC # BLD AUTO<0.01NIBaptist Memorial Hospital for Women NRBC/100 WBC BLD-RTO0/100 WBCAlvin J. Siteman Cancer Center PLATELET # BLD [id number] County Memorial Hospital PMV BLD AUTO9.3 fL9.0 - 12.7 fLAlvin J. Siteman Cancer Center WBC # BLD AUTO 7.76NOMercy Hospital St. John'sIM GRANULOCYTES # BLD AUTO<0.03NINFGolden Valley Memorial Hospital GRANULOCYTES/LEUK NFR BLD AUTO0.3 %NOMS HealthcareSpecimen Type: BLOOD SPECIMEN Ordering Facility: [facility] Address: [address] [place] [address] Original Ordering Provider: ARLEY Ziegler 70-60-1818VWEODubhhf [facility] Citizens HospitalComprehensive metabolic 2000 panelOrdered By: Dash Handley on 13-01-9513Naqbkyj [Mass/Vol]4.5 g/dL3.9 - 4.9 g/dLClebellevue hospital ClinicALP [Catalytic activity/Vol]78 U/L38 - 113 U/LCleveland ClinicALT [Catalytic activity/Vol]22 U/L10 - 54 U/LCleveland ClinicAnion gap [Moles/Vol]11 mmol/L8 - 15 mmol/LCleveland ClinicAST [Catalytic activity/Vol]20 U/L14 - 40 U/LCleveland ClinicBilirubin [Mass/Vol]0.4 mg/dL0.2 - 1.3 mg/dLClebellevue hospital ClinicCalcium [Mass/Vol]10 mg/dL8.5 - 10.2 mg/dLClebellevue hospital ClinicChloride [Moles/Vol]101 mmol/L 98 - 107 mmol/LCleveland ClinicCO2 [Moles/Vol]29 mmol/L22 - 30 mmol/LCleveland ClinicCreatinine [Mass/Vol]0.78 mg/dL0.73 - 1.22 mg/dLMarengo ClinicGFR/1.73 sq M.predicted among non-blacks MDRD (S/P/Bld) [Vol rate/Area]97 mL/min/{1.73_m2}- PINMcCullough-Hyde Memorial Hospitaland Lake Region HospitalComment on above:Estimated Glomerular Filtration Rate (eGFR) is calculated using the 2020 CKD-EPI creatinine equation. This equation utilizes serum creatinine, sex, and age as parameters. The creatinine assay has traceable calibration to isotope dilution-mass spectrometry. Refer to KDIGO guidelines for clinical interpretation. In patients with unstable renal function, e.g. those with acute kidney injury, the eGFRmay not accurately reflect actual GFR.Glucose [Mass/Vol]145 mg/mDTjul09 - 99 mg/dL [facility] Va Medical CenterComment on above:The [place] Diabetes Association (ADA) provides guidance for cutoff [...] Standards of Medical Care in Diabetes 2016, [place] Diabetes Association. Diabetes Care. 2016.39(Suppl 1). Interpretation and review of laboratory resultsAbnormalCleveland ClinicPotassium [Moles/Vol]3.9 mmol/L3.7 - 5.1 mmol/LCmemorial health system selby general hospital ClinicProtein [Mass/Vol]7 g/dL 6.3 - 8.0 g/dLMarengo ClinicSodium [Moles/Vol]141 mmol/L136 - 144 mmol/L [facility] Medical CenterUrea nitrogen [Mass/Vol]13 mg/dL9 - 24 mg/dLDunlap Memorial HospitalComprehensive metabolic 2000 panelon 07-98-2385Lyygvnr [Mass/Vol]4.5 g/dLNormal3.9-4.9CSouthview Medical CenterComvibra hospital of [facility] [place] on above:Order Comment: Specimen Type: BLOOD SPECIMENOrdering Facility: [facility] Address:[address] [place], [place] [address]Performed By: #### 2532- 0, ####[facility] [id number] [place], [place] [address]EJX [Catalytic activity/Vol]78 U/DDjmpqw48-328 [facility] on above:Order Comment: Specimen Type: BLOOD SPECIMENOrdering Facility: [facility] Address:[address] [place], [place] [address]Performed By: #### 2532-0, ####[facility] [id number] [place], [place] [address]NFD [Catalytic activity/Vol]22 U/WDfwrcc95-42EawxmerxpUC [facility] on above:Order Comment: Specimen Type: BLOOD SPECIMENOrdering Facility: [facility] Address:[address] [place], [place] [address]Performed By: #### 2532-0, 65006-4 ####[facility] [id number] [place], [place] [address]Gkppg gap [Moles/Vol]11 mmol/LNormal8-15 [facility] on above:Order Comment: Specimen Type: BLOOD SPECIMENOrdering Facility: [facility] Address:[address] [place], [place] [address]Performed By: #### 2532-0, ####[facility] [id number] [place], [place] [address]FMA [Catalytic activity/Vol]20 U/LUwirwf88-54NoynebncaUC [facility] on above:Order Comment: Specimen Type: BLOOD SPECIMENOrdering Facility: [facility] Address:[address] [place], [place] [address]Performed By: #### 2532-0, ####[facility] [id number] [place], [place] [address]Bkdzqhnyl [Mass/Vol]0.4 mg/dLNormal0.2-1.3 [facility] on above:Order Comment: Specimen Type: BLOOD SPECIMENOrdering Facility: [facility] Address:[address] [place], [place] [address]Performed By: #### 2532-0, ####[facility] [id number] [place], [place] [address]Lxktgze [Mass/Vol]10.0 mg/dLNormal8.5-10.2CFulton County Health Center on above: Order Comment: Specimen Type: BLOOD SPECIMENOrdering Facility: [facility] Address:[address] [place], [place] [address]Performed By: #### 2532- 0, 05050-8 ####[facility] [id number] [place], [place] [address]Qkyawqtk [Moles/Vol]101 mmol/LQesvlq61-515QxwqwduybUC [facility] on above:Order Comment: Specimen Type: BLOOD SPECIMENOrdering Facility: [facility] Address:[address] [place] [address] [place] [address]Iwddzisbg By: #### 2532-0, 34420-9 ####[facility] [id number] [place], [place] [address]QN1 [Moles/Vol]29 mmol/CWqinmf48-32HkwbczvcoUC [facility] on above:Order Comment: Specimen Type: BLOOD SPECIMENOrdering Facility: [facility] Address:[address] [place], [place] [address]Performed By: #### 2532- 0, ####[facility] [id number] [place], [place] [address]Vrlsnlzfbu [Mass/Vol]0.78 mg/dLNormal0.73-1.22 [facility] on above:Order Comment: Specimen Type: BLOOD SPECIMENOrdering Facility: [facility] Address:[address] [place], [place] [address]Performed By: #### 2532-0, ####[facility] [id number] [place], [place] [address]pLULfh SerPlBld CKD-EPI 662698 mL/min/1.73m???Normal>=60[facility] Comment on above:Order Comment: Specimen Type: BLOOD SPECIMENOrdering Facility: [facility] Address:[address] [place], [place] [address]Result Comment: Estimated Glomerular Filtration Rate (eGFR) is [...] accurately reflect actual GFR.Performed By: #### 2532-0, 04149-6 ####[facility] [id number] [place], [place] [address]Ioeiazb [Mass/Vol]145 mg/bBYhtb89-89 [facility] on above:Order Comment: Specimen Type: BLOOD SPECIMENOrdering Facility: [facility] Address:[address] [place], [place] [address]Result Comment: The [place] Diabetes Association (ADA) provides guidance for cutoff [...] Standards of Medical Care in Diabetes 2016, [place] Diabetes Association. Diabetes Care. 2016.39(Suppl 1).Performed By: #### 2532-0, 85517-8 ####[facility] [id number] [place], [place] [address]Oilftzqoe [Moles/Vol]3.9 mmol/LNormal3.7-5.1 [facility] on above:Order Comment: Specimen Type: BLOOD SPECIMENOrdering Facility: [facility] Address:[address] [place], [place] [address]Performed By: #### 2532-0, ####[facility] [id number] [place], [place] [address]Yuxeybe [Mass/Vol]7.0 g/dLNormal6.3-8.0[facility] on above:Order Comment: Specimen Type: BLOOD SPECIMENOrdering Facility: [facility] Address:[address] [place], [place] [address]Performed By: #### 2532- 0, ####[facility] [id number] [place], [place] [address]Vdsrzu [Moles/Vol]141 mmol/CVikfwr072-995Mwhqtezpj Clinic ClevelandComment on above:Order Comment: Specimen Type: BLOOD SPECIMENOrdering Facility: [facility] Address:[address] [place], [place] [address]Performed By: #### 2532-0, 95072-6 ####[facility] [id number] [place], [place] [address]Wzne nitrogen [Mass/Vol]13 mg/dLNormal9-24[facility] on above: Order Comment: Specimen Type: BLOOD SPECIMENOrdering Facility: [facility] Address:[address] [place], [place] [address]Performed By: #### 2532- 0, 12884-0 ####[facility] [id number] [place], [place] [address]Pypwldbq SerPl-mCncon 09-97-2832Stqesrbb [Mass/Vol] 37.4 ng/zHIjakdu73.3-565.7CFulton County Health Center on above:Order Comment: Specimen Type: BLOOD SPECIMENOrdering Facility: [facility] Address:[address] [place], [place] [address]Performed By: #### 2276- 4, 32847-4, 3016-3 ####[facility] LABCLIA [id number] [address]ETFolate SerPl-mCncon 85-10-6449Ozmlsa [Mass/Vol]ng/mLNormal>4.7CFulton County Health Center on above:Order Comment: Specimen Type: BLOOD SPECIMENOrdering Facility: [facility] Address:[address] [place], [place] [address]Result Comment: A result of > 20 ng/mL is not necessarily indicative of a pathologic or treatable condition: it reflects a limitation of the test methodology.Assay reference range: 4.8 to 24.2 ng/mL. Suitable for detection of folate deficiency.Reference:Folate III (Folate III) [package insert V 1.0 Ecuadorean]. [employer], [place], [place]: January 2015.Performed By: #### 2132-9, 2284-8 ####[facility] LABIA [id number] [address] [address] [place] OF AMERICAIron and Iron binding capacity panelon 52-14-6653Fbcw [Mass/Vol]70 ug/jCHtmabu81-651OqmqjyyzrUC [facility] on above:Order Comment: Specimen Type: BLOOD SPECIMENOrdering Facility: [facility] Address:[address] [place], [place] [address]Performed By: #### 2276-4, 20095-4, 3016-3 ####[facility] [id number] [place] [id number] [place] OF AMERICAIron binding capacity [Mass/Vol]372 ug/zSXgcvml353-131DgfruvczgUC [facility] on above:Order Comment: Specimen Type: BLOOD SPECIMENOrdering Facility: [facility] Address:[address] [place], [place] [address]Performed By: #### 2276-4, 05753-9, 3016-3 ####[facility] [id number] [place] [address] [place] AMERICAIron/TIBC [Molar ratio]18.8 %Ghqelr52.0-57.0[facility] Comment on above:Order Comment: Specimen Type: BLOOD SPECIMENOrdering Facility: [facility] Address:[address] [place] [address] Performed By: #### 2276-4, 73964-3, 3016-3 ####[facility] [id number] [place] [id number] [place] OF AMERICALACTATE DEHYDROGENASEon 93-31-8386KWB [Catalytic activity/Vol]152 U/L135 - 225 U/LCleveland ClinicLDH SerPl-cCncon 49-52-9708BJW [Catalytic activity/Vol] 152 U/SAzcdgs434-854UcgzjecbnUC [facility] on above:Order Comment: Specimen Type: BLOOD SPECIMENOrdering Facility: [facility] Address:[address] [place] [address] [place], [place] [address]Czvusmexd By: #### 2532-0, 23613-8 ####JOSE A [facility] LABCLIA [id number] [place], [place] [address]AAT [Catalytic activity/Vol]on 21-16-5566Ykrmmqstxrmnuz and review of laboratory resultsNoMercy Memorial Hospitaltory - Hematology and Cell countson 99-44-1423Rmhspfjug/100 WBC (Bld)0.5 %NOM HealthcareEosinophils/100 WBC (Bld)10.4 %[facility] Medical CenterErythrocyte distribution width (RBC) [Ratio]14 %11.5 - 15.0 %[facility] Medical CenterHematocrit (Bld) [Volume fraction]37.4 %Low39.0 - 51.0 %[facility] CenterHemoglobin (Bld) [Mass/Vol]12.7 g/dLLow13.0 - 17.0 g/dLSt. Louis VA Medical CenterLymphocytes/100 WBC (Bld)20.9 %[facility] Memorial HospitalH (RBC) [Entitic mass]29.8 pg26.0 - 34.0 pgSt. Louis VA Medical CenterMCHC (RBC) [Mass/Vol]34 g/dL30.5 - 36.0 g/dLSt. Louis VA Medical CenterMCV (RBC) [Entitic vol]87.8 fL 80.0 - 100.0 fLSt. Louis VA Medical CenterMonocytes/100 WBC (Bld)8.4 %[facility] Neutrophils/100 WBC (Bld)59.5 %[facility] Medical CenterRBC (Bld) [#/Vol]4.26 10*6/uL4.20 - 6.00 m/uLSt. Louis VA Medical CenterNo Panel Informationon 37-47-1280Idoqnvkuhjavij and review of laboratory resultsAbnormalSampson Regional Medical CenterTS SerPl-aCnc on 45-81-7427GAR Qn0.576 m[IU]/LNormal0.270-4.200[facility] Comment on above:Order Comment: Specimen Type: BLOOD SPECIMENOrdering Facility: [facility] Address:[facility] [place] [address] Performed By: #### 2276-4, 77432-4, 3016-3 ####[facility] LABCLIA [id number] [place] [id number] [place] AMERICAVit B12 SerPl-mCncon 72-90-4961Bqvlyfnil (Vitamin B12) [Mass/Vol]761 pg/lHKlvsdn788-0215Urfzgfixa Clinic ClevelandComment on above:Order Comment: Specimen Type: BLOOD SPECIMENOrdering Facility: [facility] Address:[address] [place], [place] [address]Performed By: #### 2132-9, 2284-8 ####[facility] LABCLIA [id number] [place] [id number] [place] AMERICACNOVon 32-88-8569UZZETjqpqn [facility] HospitalCNPNon 13-65-6272CTLZNtnsezJqwdvgfqe Clinic [place] MR BRAIN W AND WO CONTRAST (ROUTINE)on 58-08-5091TE BRAIN W AND WO CONTRAST (ROUTINE)EXAM: MRI [...] report is generated using voice recognition reporting ([employer] Integrated [employer]). On occasion [employer] erroneously drops words from the report or replaces the spoken word with similar sounding words. Please call with any questions/concerns regarding this report.* Dictated and transcribed 08/08/24/dpd This report has been electronically signed and approved by the interpreting radiologist.NormalNot AvailableCNPNon 39-14-7837RUOGSqkhnlGhatbjfxu Clinic ClevelandACT Plas-mCncon 08-00-8504Ezfsfajjntvwn (P) [Mass/Vol]8.4 pg/mLNormal 7.2-63.3CSouthview Medical CenterComment on above:Order Comment: Specimen Type: BLOOD SPECIMENOrdering Facility: [facility] Address:[address] [place], [place] [address]Result Comment: ACTH Reference Range: 7-10 am: 7.2 - 63.3 pg/mLPerformed By: #### 2141-0 ####[facility] LABCLIA [id number] [place] [address] [place] AMERICACB W Auto Differential panel (Bld)on 53-98-7349Xsisesgnl (Bld) [#/Vol] 0.06 10*3/uLNIKindred HealthcareDifferential cell count method Nom (Bld)Auto [facility] Medical CenterEosinophils (Bld) [#/Vol]0.5 10*3/uLHighNIKindred Healthcare Immature granulocytes (Bld) [#/Vol]NINFCEast Liverpool City HospitalImmature granulocytes/100 WBC (Bld)0.2 %[facility] Medical CenterLymphocytes (Bld) [#/Vol]1.72 10*3/[facility] HospitalMonocytes (Bld) [#/Vol]0.74 10*3/uLNINFCincinnati Va Medical CenterNeutrophils (Bld) [#/Vol]5.16 10*3/[facility] HospitalNucleated RBC (Bld) [#/Vol]NINFCEast Liverpool City HospitalNucleated RBC/100 WBC (Bld) [Ratio]0 %/100 WBCCincinnati Va Medical CenterPlatelet mean volume (Bld) [Entitic vol]9 fL9.0 - 12.7 fLCEast Liverpool City HospitalPlatelets (Bld) [#/Vol]283 10*3/[facility] HospitalWBC (Bld) [#/Vol]8.2 10*3/[facility] Basophils (Bld) [#/Vol]0.06 10*3/Normal<0.11CSouthview Medical CenterComment on above:Order Comment: Specimen Type: BLOOD SPECIMENOrdering Facility: [facility] Address:[address] [place] [address] Performed By: #### 31754-2 ####[facility] [id number] [place], [place] [address]Emgigwmdi/100 WBC (Bld)0.7 % NormalBarberton Citizens HospitalComment on above:Order Comment: Specimen Type: BLOOD SPECIMENOrdering Facility: [facility] Address:[address] [place], [place] [address]Performed By: #### 02230-3 ####[facility] [id number] [place] [address] Differential cell count method Nom (Bld)AutoNormalCSouthview Medical Center Comment on above:Order Comment: Specimen Type: BLOOD SPECIMENOrdering Facility: [facility] Address:[address] [place] [address] Performed By: #### 55046-9 ####[facility] [id number] [place], [place] [address]Oiljxsnmoua (Bld) [#/Vol]0.50 10*3/uLHigh<0.46[facility] on above:Order Comment: Specimen Type: BLOOD SPECIMENOrdering Facility: [facility] Address:[address] [place], [place] [address]Performed By: #### 87005-2 ####[facility] [id number] [place], [place] [address]Kejklewaemk/100 WBC (Bld)6.1 %NormalUC [facility] on above:Order Comment: Specimen Type: BLOOD SPECIMENOrdering Facility: [facility] Address:[address] [place], [place] [address]Performed By: #### 14694-8 ####[facility] [id number] [place], [place] [address]Ebmeaylayit distribution width (RBC) [Ratio]14.1 %Gbfhra82.5-15.0[facility] on above: Order Comment: Specimen Type: BLOOD SPECIMENOrdering Facility: [facility] Address:[address] [place], [place] [address]Performed By: #### 46887- 8 ####[facility] [id number] [place], [place] [address]Exjkbmzecg (Bld) [Volume fraction]34.6 %Low39.0-51.0 [facility] on above:Order Comment: Specimen Type: BLOOD SPECIMENOrdering Facility: [facility] Address:[address] [place], [place] [address]Performed By: #### 60903-4 ####[facility] [id number] [place], [place] [address]Xsslmrgmll (Bld) [Mass/Vol]11.6 g/dLLow13.0-17.0[facility] on above:Order Comment: Specimen Type: BLOOD SPECIMENOrdering Facility: [facility] Address:[address] [place], [place] [address]Performed By: #### 28594- 8 ####[facility] SYSTEMSMARIBEL [facility] LABCLIA [id number] [place], [place] [address]Vvspxwpf granulocytes (Bld) [#/Vol]10*3/uLNormal<0.10 [facility] on above:Order Comment: Specimen Type: BLOOD SPECIMENOrdering Facility: [facility] Address:[address] [place], [place] [address]Performed By: #### 70152-6 ####SHANTANUMEMARIBEL [facility] LABCLIA [id number] [place], [place] [address]Fgaxxhsy granulocytes/100 WBC (Bld)0.2 %[facility] on above: Order Comment: Specimen Type: BLOOD SPECIMENOrdering Facility: [facility] Address:[address] [place], [place] [address]Performed By: #### 75063- 8 ####[facility] SYSTEMSMARIBEL [facility] LABCLIA [id number] [place], [place] [address]Ilhhbmrpfzl (Bld) [#/Vol]1.72 10*3/uLNormal1.00-4.00 [facility] on above:Order Comment: Specimen Type: BLOOD SPECIMENOrdering Facility: [facility] Address:[address] [place], [place] [address]Performed By: #### 90434-8 ####[facility] SYSTEMSMARIBEL [facility] LABCLIA [id number] [place], [place] [address]Ztdzdgjnxdj/100 WBC (Bld)21.0 %[facility] on above:Order Comment: Specimen Type: BLOOD SPECIMENOrdering Facility: [facility] Address:[address] [place], [place] [address]Performed By: #### 91731-1 ####[facility] [id number] [place], [place] [address]XAD (RBC) [Entitic mass]29.3 nuPqvsnl06.0-34.0[facility] on above:Order Comment: Specimen Type: BLOOD SPECIMENOrdering Facility: [facility] Address:[address] [place], [place] [address]Performed By: #### 86561-4 ####[facility] [id number] [place], [place] [address]KSXT (RBC) [Mass/Vol]33.5 g/tINfsuvp19.5-36.0[facility] on above: Order Comment: Specimen Type: BLOOD SPECIMENOrdering Facility: [facility] Address:[address] [place], [place] [address]Performed By: #### 53524- 8 ####[facility] [id number] [place], [place] [address]OXJ (RBC) [Entitic vol]87.4 nLInkmdh89.0-100.0[facility] on above:Order Comment: Specimen Type: BLOOD SPECIMENOrdering Facility: [facility] Address:[address] [place], [place] [address]Performed By: #### 26591-6 ####[facility] [id number] [place], [place] [address]Zcexyqjpm (Bld) [#/Vol]0.74 10*3/uLNormal<0.87[facility] on above:Order Comment: Specimen Type: BLOOD SPECIMENOrdering Facility: [facility] Address:[address] [place], [place] [address]Performed By: #### 85402- 8 ####[facility] [id number] [place], [place] [address]Wupexzexv/100 WBC (Bld)9.0 %NormalUC [facility] on above:Order Comment: Specimen Type: BLOOD SPECIMENOrdering Facility: [facility] Address:[address] [place], [place] [address]Performed By: #### 96417-9 ####[facility] [id number] [place], [place] [address]Xotjvmaecxg (Bld) [#/Vol]5.16 10*3/uLNormal1.45-7.50[facility] on above:Order Comment: Specimen Type: BLOOD SPECIMENOrdering Facility: [facility] Address:[address] [place], [place] [address]Performed By: #### [id number] ####[facility] [id number] [place], [place] [address]Nbewikrkdtj/100 WBC (Bld)63.0 %NormalUC [facility] on above:Order Comment: Specimen Type: BLOOD SPECIMENOrdering Facility: [facility] Address:[address] [place], [place] [address]Performed By: #### [id number] ####[facility] [id number] [place], [place] [address]Kfmycexrg RBC (Bld) [#/Vol] 10*3/uLNormal<0.01[facility] on above:Order Comment: Specimen Type: BLOOD SPECIMENOrdering Facility: [facility] Address:[address] [place], [place] [address]Performed By: #### [id number] ####[facility] [id number] [place], [place] [address]Gjyzfkidw RBC/100 WBC (Bld) [Ratio]0.0 /100 WBCNormal [facility] on above:Order Comment: Specimen Type: BLOOD SPECIMENOrdering Facility: [facility] Address:[address] [place], [place] [address]Performed By: #### 53637-4 ####[facility] [id number] [place], [place] [address]Nfyvnvfn mean volume (Bld) [Entitic vol]9.0 fLNormal9.0-12.7CFulton [facility] on above:Order Comment: Specimen Type: BLOOD SPECIMENOrdering Facility: [facility] Address:[address] [place] [address] Performed By: #### 25310-1 ####[facility] [id number] [place], [place] [address]Mmqfsbsec (Bld) [#/Vol]283 10*3/tKYbhgwj526-572WgychktsiUC [facility] on above:Order Comment: Specimen Type: BLOOD SPECIMENOrdering Facility: [facility] Address:[address] [place], [place] [address]Performed By: #### 68623-8 ####[facility] [id number] [place], [place] [address]GDT (Bld) [#/Vol]3.96 10*6/uLLow4.20-6.00[facility] on above:Order Comment: Specimen Type: BLOOD SPECIMENOrdering Facility: [facility] Address:[address] [place], [place] [address]Performed By: #### 33925-1 ####[facility] [id number] [place], [place] [address]MVJ (Bld) [#/Vol]8.20 10*3/uL Normal3.70-11.00[facility] on above:Order Comment: Specimen Type: BLOOD SPECIMENOrdering Facility: [facility] Address:[address] [place], [place] [address]Performed By: #### 81260-3 ####[facility] [id number] [place], [place] [address]LWU CBC W AUTO DIFF BLDon 59-96-6081ZAP BASOPHILS # BLD AUTO0.06NINFNOMS HealthcareCCF DIFFERENTIAL METHOD BLDAutoNOMS HealthcareCCF EOSINOPHIL # BLD AUTO0.5HighNINFAlvin J. Siteman Cancer Center LYMPHOCYTES # BLD AUTO1.72 NOMChildren's Mercy HospitalF MONOCYTES # BLD AUTO0.74NIBaptist Memorial Hospital for Women NEUTROPHILS # BLD AUTO5.16NOCooper County Memorial Hospital NRBC # BLD AUTO<0.01NINFAlvin J. Siteman Cancer Center NRBC/100 WBC BLD-RTO0/100 WBCAlvin J. Siteman Cancer Center PLATELET # BLD YEUV220FSBSCooper County Memorial Hospital PMV BLD AUTO9 fL9.0 - 12.7 fLAlvin J. Siteman Cancer Center WBC # BLD AUTO8.2 NOMThe Rehabilitation Institute GRANULOCYTES # BLD AUTO<0.03NITennessee Hospitals at Curlie GRANULOCYTES/LEUK NFR BLD AUTO0.2 %[facility] Medical CenterSpecimen Type: BLOOD SPECIMEN Ordering Facility: [facility] Address: [address] [place] [address] Original Ordering Provider: ARLEY OROZCOLINISYNCComprehensive metabolic 2000 panelOrdered By: Dash Handley on 37-74-1639Sgizrkz [Mass/Vol]4.4 g/dL3.9 - 4.9 g/dLMarengo ClinicALP [Catalytic activity/Vol]79 U/L38 - 113 U/LCleveland ClinicALT [Catalytic activity/Vol]11 U/L10 - 54 U/LCleveland ClinicAnion gap [Moles/Vol]13 mmol/L8 - 15 mmol/LCleveland ClinicAST [Catalytic activity/Vol]12 U/LLow14 - 40 U/LCleveland ClinicBilirubin [Mass/Vol]0.3 mg/dL0.2 - 1.3 mg/dL Marengo ClinicCalcium [Mass/Vol]9.8 mg/dL8.5 - 10.2 mg/dLCincinnati Va Medical Center Chloride [Moles/Vol]106 mmol/L98 - 107 mmol/LCleveland ClinicCO2 [Moles/Vol]27 mmol/L22 - 30 mmol/LCleveland ClinicCreatinine [Mass/Vol]0.67 mg/dLLow0.73 - 1.22 mg/dLCincinnati Va Medical CenterGFR/1.73 sq M.predicted among non-blacks MDRD (S/P/Bld) [Vol rate/Area]102 mL/min/{1.73_m2}- PINFCOhio Valley Hospital on above:Estimated Glomerular Filtration Rate (eGFR) [...] actual GFR.Glucose [Mass/Vol] 90 mg/dL74 - 99 mg/dLLutheran Hospital on above:The [place] Diabetes Association (ADA) provides guidance for cutoff [...] Standards of Medical Care in Diabetes 2016, [place] Diabetes Association. Diabetes Care. 2016.39(Suppl 1). Interpretation and review of laboratory resultsAbnormalCleveland ClinicPotassium [Moles/Vol]4 mmol/L3.7 - 5.1 mmol/LCmemorial health system selby general hospital ClinicProtein [Mass/Vol]6.4 g/dL 6.3 - 8.0 g/dLMercy Health Kings Mills Hospitalodium [Moles/Vol]146 mmol/XPlqk172 - 144 mmol/L [facility] Va Medical CenterUrea nitrogen [Mass/Vol]19 mg/dL9 - 24 mg/dLDunlap Memorial HospitalComprehensive metabolic 2000 panelon 18-79-5610Lalwnhj [Mass/Vol]4.4 g/dLNormal3.9-4.9CFulton County Health Center on above:Order Comment: Specimen Type: BLOOD SPECIMENOrdering Facility: [facility] Address:[address] [place] [address]Mpcdfhwsg By: #### 59916- 8 ####[facility] [id number] [place] [address]SBO [Catalytic activity/Vol]79 U/JHtdoka61-364JlixjpjpcUC [facility] on above:Order Comment: Specimen Type: BLOOD SPECIMENOrdering Facility: [facility] Address:[address] [place], [place] [address]Performed By: #### 95506-1 ####[facility] [id number] [facility]KSREUN[facility] [place] [address]GBM [Catalytic activity/Vol]11 U/XMzcseu68-45DdfcalwyvUC [facility] on above:Order Comment: Specimen Type: BLOOD SPECIMENOrdering Facility: [facility] Address:[address] [place], [place] [address]Performed By: #### 98186- 8 ####[facility] HE[facility] SYSTEMSMARIBEL [facility] LABCLIA [id number] [facility] COTTONREUNION REHABIL[facility]ATION HOS[facility] [place]ENIXTESSAINCL[place], [place] [address]Wduaq gap [Moles/Vol]13 mmol/LNormal8-15[facility] on above:Order Comment: Specimen Type: BLOOD SPECIMENOrdering Facility: [facility] Address:[address] [place], [place] [address]Performed By: #### 87519-1 ####[facility]IAL HEALTH SYSTEMSMARIBEL [facility] LABCLIA [id number] [place] [address]NUF [Catalytic activity/Vol]12 U/BUxv18-17XrzcdryojUC [facility] on above:Order Comment: Specimen Type: BLOOD SPECIMENOrdering Facility: [facility] Address:[address] [place], [place] [address]Performed By: #### 30666-3 ####[facility] [id number] [facility] CANORENEREUNION REHABILITATION [facility] [place] [address] Bilirubin [Mass/Vol]0.3 mg/dLNormal0.2-1.3CFulton County Health Center on above:Order Comment: Specimen Type: BLOOD SPECIMENOrdering Facility: [facility] Address:[address] [place], [place] [address]Performed By: #### 28579-5 ####[facility] [id number] [facility] [place], [place] [address]Sztrpjv [Mass/Vol]9.8 mg/dLNormal8.5-10.2CFulton County Health Center on above:Order Comment: Specimen Type: BLOOD SPECIMENOrdering Facility: [facility] Address:[address] [place], [place] [address]Performed By: #### 62787-4 ####[facility] [id number] [facility] [place], [place] [address]Vmnhfelp [Moles/Vol]106 mmol/XGokxqt69-081GnqcorvegUC [facility] on above: Order Comment: Specimen Type: BLOOD SPECIMENOrdering Facility: [facility] Address:[address] [place], [place] [address]Performed By: #### 17614- 8 ####[facility] [id number] [facility] [place], [place] [address]KB0 [Moles/Vol]27 mmol/MTrmtfh61-91LpoixcytmUC [facility] on above:Order Comment: Specimen Type: BLOOD SPECIMENOrdering Facility: [facility] Address:[address] [place], [place] [address]Performed By: #### 04124-1 ####[facility] [id number] [place], [place] [address]Prmglmeely [Mass/Vol]0.67 mg/dL Low0.73-1.22[facility] on above:Order Comment: Specimen Type: BLOOD SPECIMENOrdering Facility: [facility] Address:[address] [place], [place] [address]Performed By: #### 08701-9 ####[facility] [id number] [facility] HOSPITALRENEREUNION REHABILITATION HOSP[facility] [place] [address] Creatinine and Glomerular filtration rate.predicted panel (S/P/Bld)102 mL/min/1.73m???Normal>=60[facility] on above:Order Comment: Specimen Type: BLOOD SPECIMENOrdering Facility: [facility] Address:[address] [place], [place] [address]Bucoyv Comment: Estimated Glomerular Filtration Rate (eGFR) is [...] not accurately reflect actual GFR.Performed By: #### 01415-1 ####[facility] [id number] [place], [place] [address]Mefnhvw [Mass/Vol]90 mg/dCOwlknu26-96TosaalewdUC [facility] on above:Order Comment: Specimen Type: BLOOD SPECIMENOrdering Facility: [facility] Address:[address] [place], [place] [address]Result Comment: The [place] Diabetes Association (ADA) provides guidance for cutoff [...] Standards of Medical Care in Diabetes 2016, [place] Diabetes Association. Diabetes Care. 2016.39(Suppl 1).Performed By: #### 21437-4 ####[facility] [id number] [place], [place] [address]Ftdxokxbw [Moles/Vol]4.0 mmol/LNormal3.7-5.1CFulton County Health Center on above:Order Comment: Specimen Type: BLOOD SPECIMENOrdering Facility: [facility] Address:[address] [place] [place] [address]Performed By: #### 71546-5 ####[facility] [id number] [place], [place] [address]Llyeyeh [Mass/Vol]6.4 g/dLNormal6.3-8.0[facility] on above:Order Comment: Specimen Type: BLOOD SPECIMENOrdering Facility: [facility] Address:[address] [place], [place] [address]Performed By: #### 45287- 8 ####[facility] [id number] [place], [place] [address]Qqqbxc [Moles/Vol]146 mmol/FQrzd877-699GxggkhqqvUC [facility] on above:Order Comment: Specimen Type: BLOOD SPECIMENOrdering Facility: [facility] Address:[address] [place], [place] [address]Performed By: #### 37218-6 ####[facility] [id number] [place], [place] [address]Kcnt nitrogen [Mass/Vol]19 mg/dLNormal9-24[facility] on above:Order Comment: Specimen Type: BLOOD SPECIMENOrdering Facility: [facility] Address:[address] [place], [place] [address]Performed By: #### 54861-4 ####[facility] [id number] [place], [place] [address]Joahqkpqxhluc (P) [Mass/Vol]on 79-58-5525Hjruwygyvqeqhb and review of laboratory resultsNormalCThe Bellevue HospitalGLUCOSE, BLOOD (POC)on 17-98-6265Uhdwhzy [Mass/Vol]91 mg/dL74 - 99 mg/dLCincinnati Va Medical Center Comment on above:Location:[facility], [address] [place] [address] , [place], [place], [address] The Accu-Chek Inform II glucose meter has [...] gas instrument) in the above situations. [facility] Hard[facility] Hospitaltory - Chemistry and Chemistry - challengeon 05-30-5616IOX Qn3.17 m[IU]/LCleveland ClinicCorticotropin (P) [Mass/Vol]8.4 pg/mL7.2 - 63.3 pg/mLCleveland ClinicComment on above:ACTH Reference Range: 7-10 am: 7.2 - 63.3 pg/mLLaboratory - Hematology and Cell countson 44-61-1622Vidzovxnn/100 WBC (Bld) 0.7 %[facility] Medical CenterEosinophils/100 WBC (Bld)6.1 %[facility] Medical CenterErythrocyte distribution width (RBC) [Ratio]14.1 %11.5 - 15.0 %[facility] Medical CenterHematocrit (Bld) [Volume fraction]34.6 %Low39.0 - 51.0 %[facility] CenterHemoglobin (Bld) [Mass/Vol]11.6 g/dLLow13.0 - 17.0 g/dLNOMercy Hospital St. John'sLymphocytes/100 WBC (Bld)21 %[facility] Medical CenterMCH (RBC) [Entitic mass]29.3 pg26.0 - 34.0 pgSt. Louis VA Medical Center MCHC (RBC) [Mass/Vol]33.5 g/dL30.5 - 36.0 g/dLSt. Louis VA Medical CenterMCV (RBC) [Entitic vol]87.4 fL80.0 - 100.0 fLSt. Louis VA Medical CenterMonocytes/100 WBC (Bld)9 %[facility] CenterNeutrophils/100 WBC (Bld)63 %[facility] Medical CenterRBC (Bld) [#/Vol]3.96 10*6/uLLow4.20 - 6.00 m/uLNOEastern Missouri State Hospital PET/CT SKULL-THIGH SUBQon 08-03-2024 * * *Final [...] * Uptake Time: 66 minutes * Radiopharmaceutical: B71-Tnltxhuvvpouudsgte (FDG) COMPARISON: FDG PET/CT 04/03/2024 CORRELATION: No [...] any questions regarding this interpretation, please call [phone]. If you are unable to reach us at the number above, please feel free to contact [facility] Hospitaliology at [phone] (more content not included)...CCFRadiology, Radiologist, - 08/03/2024 [...] * Uptake Time: 66 minutes * Radiopharmaceutical: W51-Ndpohfxazfmbmlkdpf (FDG) COMPARISON: FDG PET/CT 04/03/2024 CORRELATION: No [...] any questions regarding this interpretation, please call [phone]. If you are unable to reach us at the number above, please feel free to contact [facility] eRadiology at [phone]. (more content not included)...[facility] PET/CT SKULL-THIGH SUBQNormalCOhioHealth Panel InformationOrdered By: Radiologist Radiology on 68-49-3586ZSTPSt. Louis VA Medical Center Work Phone: No Panel Informationon 14-50-5891Wixjdqphoainfn and review of laboratory resultsAbnormalSampson Regional Medical CenterRadiology Study observation (narrative)[facility] CenterPET+CT Guidance for localization of tumor [...] * Uptake Time: 66 minutes * Radiopharmaceutical: B47-Nbupoujdfsueghediq (FDG) COMPARISON: FDG PET/CT 04/03/2024 CORRELATION: No [...] any questions regarding this interpretation, please call [phone]. If you are unable to reach us at the number above, please feel free to contact [facility] Hospitaliology at [phone] (more content not included)...DIVISION OF RADIOLOGYProvider, [facility] Imaging Datto - 08/03/2024 * * *Final Report* * [...] * Uptake Time: 66 minutes * Radiopharmaceutical: V19-Ohbbmronqhrmfsevbd (FDG) COMPARISON: FDG PET/CT 04/03/2024 CORRELATION: No [...] any questions regarding this interpretation, please call [phone]. If you are unable to reach us at the number above, please feel free to contact [facility] eRadiology at [phone] (more content not included)...[facility] Qnon 96-61-6213Vbbphyvecbcfmp and review of laboratory resultsNormalCleveland [facility] SerPl-aCnc on 88-92-2160KFU Qn3.170 m[IU]/LNormal0.270-4.200[facility] Comment on above:Order Comment: Specimen Type: BLOOD SPECIMENOrdering Facility: [facility] Address:[address] [place] [address] Performed By: #### 3016-3 ####[facility] LABCLIA [id number] [place] [address] [place] APTTon 65-25-3349mEZJ Coag (Bld) [Time]28 bDgivhp57-25FnvBoaqdmSt. Mary's Medical Center Comment on above:Performed By: #### PTT ####[facility] VALLEY HOSPITALMirela [facility] ([facility])[address] [address] VIRBASIC METABOLIC PANELon 07-31-2024 Anion gap [Moles/Vol]4 mmol/LLow5-15St. Mary's Medical CenterComment on above: Performed By: #### BMP #### [facility] ([address] [place] [address] VIRCalcium [Mass/Vol]8.6 mg/dLNormal8.5-10.5PWVUMedicine Harrison Community HospitalComment on above:Performed By: #### BMP #### [facility] ([address] [place] [address] VIRChloride [Moles/Vol]101 mmol/NEpakum85-024PotInfapxBaptist Saint Anthony'S HospitalComment on above:Performed By: #### BMP #### [facility] ([address] [place] [address] VIRCO2 [Moles/Vol]27 mmol/CLnztfi38-72MclEwcfjp Fremont HospitalComment on above:Performed By: #### BMP #### [facility] ([address] [place] [address] VIRCreatinine [Mass/Vol]0.66 mg/dLLow0.70-1.20ProBaptist Saint Anthony'S HospitalComment on above:Result Comment: METHOD TRACEABLE TO IDMS STANDARDPerformed By: #### BMP #### [facility] ([address] [place] [address] VIREGFR (CKD-EPI) NON-RACE DEPENDENT>^90Normal>=60ProBaptist Saint Anthony'S HospitalComment on above:Result Comment: eGFR not reported due to non- numeric value for Creatinine. Reported eGFR is based on the CKD-EPI 2021 equation that does not use a race coefficient.Performed By: #### BMP #### [facility] ([address] [place] [address] VIRGlucose [Mass/Vol]105 mg/oJOmmw23-59TjqQkmmmcBaptist Saint Anthony'S HospitalComment on above:Performed By: #### BMP #### [facility] ([address] [place] [address] VIRPotassium [Moles/Vol]3.2 mmol/LLow3.5-5.0St. Mary's Medical CenterComment on above:Performed By: #### BMP #### [facility] ([address] [place] [address] VIRSodium [Moles/Vol]132 mmol/XMeo503-177RshWwyqelBaptist Saint Anthony'S HospitalComment on above:Performed By: #### BMP #### [facility] ([address] [place] [address] VIRUrea nitrogen [Mass/Vol]14 mg/dLNormal-27ProBaptist Saint Anthony'S HospitalComment on above:Performed By: #### BMP #### [facility] ([address] [address] VIRBEDSIDE GLUCOSEon 66-68-2832Rxjfrkk [Mass/Vol]102 mg/dLHigh 65-99ProBaptist Saint Anthony'S HospitalComment on above:Performed By: #### BEDG #### [facility] ([address] [address] VIRCBC WITH AUTO DIFFERENTIALon 65-96-8601ZABWEISGJ ABSOLUTE COUNT (10*3/UL) BY AUTOMATED COUNT0.1 10*3/uLNormal0.0-0.2PWVUMedicine Harrison Community HospitalComment on above:Performed By: #### CBCA #### [facility] ([address] [address] VIRBASOPHILS RELATIVE PERCENT BY AUTOMATED COUNT0.6 %Normal St. [facility]'s Medical CenterComment on above:Performed By: #### CBCA #### [facility] ([address] [address] VIRCELLAVISION DIFFERENTIAL TYPEAUTOMATED DIFFERENTIALNormal St. Mary's Medical CenterComment on above:Performed By: #### CBCA #### [facility] ([address] [address] VIREosinophils (Bld) [#/Vol]0.4 10*3/uLNormal0.0-0.4St. Mary's Medical CenterComment on above:Performed By: #### CBCA #### [facility] ([address] [place] [address] VIREOSINOPHILS RELATIVE PERCENT BY AUTOMATED COUNT4.1 %Normal St. Mary's Medical CenterComment on above:Performed By: #### CBCA #### [facility] ([address] [place] [address] VIRErythrocyte distribution width (RBC) [Ratio]14.6 %Normal 11.5-15St. Mary's Medical CenterComment on above:Performed By: #### CBCA #### [facility] ([address] [place] [address] VIRHematocrit (Bld) [Volume fraction]34.0 %Kca75-69WgvDrrvrwSt. Mary's Medical CenterComment on above:Performed By: #### CBCA #### [facility] ([address] [place] [address] VIRHemoglobin (Bld) [Mass/Vol]11.7 g/sWWzp16-63VpfYnuhgkSt. Mary's Medical CenterComment on above:Performed By: #### CBCA #### [facility] ([address] [place] [address] VIRLYMPHOCYTES ABSOLUTE COUNT (10*3/UL) BY AUTOMATED COUNT1.7 10*3/uLNormal1.0-3.5PWVUMedicine Harrison Community HospitalComment on above:Performed By: #### CBCA #### [facility] ([address] [place] [address] VIRLYMPHOCYTES RELATIVE PERCENT BY AUTOMATED COUNT16.0 %Normal St. Mary's Medical CenterComment on above:Performed By: #### CBCA #### [facility] ([address] [place] [address] VIRMCH (RBC) [Entitic mass]29.6 dnZowvfk20-32ImcMjwihuBaptist Saint Anthony'S HospitalComment on above:Performed By: #### CBCA #### [facility] ([facility]) [address] [place], [place] [address]E. [place] [address] VIRMCHC (RBC) [Mass/Vol]34.3 g/aIReaglz53-11ZauFdxivmBaptist Saint Anthony'S HospitalComment on above:Performed By: #### CBCA #### [facility] ([facility]) [address] [place] [address]. [place] [address] VIRMCV (RBC) [Entitic vol]86 bXRyzvog41-594RhsUzqqtj Fremont HospitalComment on above:Performed By: #### CBCA #### [facility] ([address] [place] [address] VIRMONOCYTES ABSOLUTE COUNT (10*3/UL) BY AUTOMATED COUNT0.8 10*3/uLNormal0.0-0.9ProBaptist Saint Anthony'S HospitalComment on above:Performed By: #### CBCA #### [facility] ([facility]) [address] [place] [address]. [place] [address] VIRMONOCYTES RELATIVE PERCENT BY AUTOMATED COUNT8.2 %Normal St[facility]'s Medical CenterComment on above:Performed By: #### CBCA #### [facility] ([address] [place] [address] VIRNEUTROPHILS ABSOLUTE COUNT BY AUTOMATED COUNT7.4 10*3/uL High1.5-6.6ProBaptist Saint Anthony'S HospitalComment on above:Performed By: #### CBCA #### [facility] ([address] [place] [address] VIRNEUTROPHILS RELATIVE PERCENT BY AUTOMATED COUNT71.1 %Normal [facility]'s Medical CenterComment on above:Performed By: #### CBCA #### [facility] ([place]) [address] [place] [address] VIRPlatelet mean volume (Bld) [Entitic vol]7.[address]7-12 [address] [facility] Medical CenterComment on above:Performed By: #### CBCA #### [facility] ([facility]) [address] [place] [address] VIRPlatelets (Bld) [#/Vol]345 10*3/uJXpacad749-403YkcAkhpwv [facility]remont HospitalComment on above:Performed By: #### CBCA #### [facility] ([facility]) [address] [place] [address] [place] [address] VIRRBC COUNT3.94 X10E12/LLow4.1-5.7[facility] Comment on above:Performed By: #### CBCA #### [facility] ([facility]) [address] [place] [address] VIRWBC (Bld) [#/Vol]10.4 10*3/uLNormal4-11ProBaptist Saint Anthony'S HospitalComment on above:Performed By: #### CBCA #### [facility] ([facility]) [address] [place] [address] 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 Finalized by Rj Diaz MD on 07/31/2024 4:24 PMNormalSt. Mary's Medical CenterCT CTA HEADon 65-58-4814HK CTA HEADCT CTA HEAD History: headache, c/o bleed Squamous cell cancer left upper lobe Procedure: CT CTA HEAD Multidetector CT angiogram performed with IV contrast through the [place] of [place] using 3 -D Maximum intensity [...] from prior study otherwise unremarkable CT angiogram [place]. * If you have high clinical suspicion for occult process such as an infarct consider CT perfusion and brain MRI. Finalized by Rj Diaz MD on 07/31/2024 4:23 PMNAshtabula County Medical CenterPROTIME AND INRon 52-33-7690XQA7.7Bduyhl7.9-1.2ProMedica Cont[facility] Costa Regional Medical CenterComment on above:Performed By: #### PINR #### [facility] ([facility]) [address] [place] [address]. [place] [address] VIRPT Coag (PPP) [Time]11.3 sNormal9.8-13.2ProMedica Contra Costa Regional Medical CenterComment on above:Performed By: #### PINR #### PROMPROMEDICA TOLEDO HOSPITALMirela [facility] ([facility]) [address] [place] [address]. [place] [address] VIRTROPONIN I, HIGH SENSITIVITY 0 HOURon 60-52-4163SYAPSBOL I, HIGH SENSITIVITY4 ng/LNormal<21ProBaptist Saint Anthony'S HospitalComment on above: Performed By: #### TNIHS0 ####[facility]OSPITALA [facility] ([facility])[address] [place] [address].[place] [address] VIRXR CHEST 1 VIEW STROKEon 58-98-3565XN CHEST 1 VIEW STROKEXR CHEST 1 VIEW [...] by Marcin Amaral MD on 07/31/2024 4:20 PMNormalProBaptist Saint Anthony'S HospitalCNPNon 30-25-4279AKVPCqvjckFrtnjqhyj Clinic ClevelandCBC W Auto Differential panel (Bld)on 55-28-4236Dpoujjpfh (Bld) [#/Vol]0.06 10*3/uLNormal <0.11CFulton County Health Center on above:Order Comment: Specimen Type: BLOOD SPECIMENOrdering Facility: [facility] Address:[address] [place] [address]Wgizprvav By: #### 19807-3 ####[facility] [id number] [place] [address] Basophils/100 WBC (Bld)0.6 %NormalUC [facility] on above: Order Comment: Specimen Type: BLOOD SPECIMENOrdering Facility: [facility] Address:[address] [place], [place] [address]Performed By: #### [id number]- [id number] ####[facility] LABCLIA [id number] [place], [place] [address]Agrgpfwdinch cell count method Nom (Bld)AutoNormal [facility] on above:Order Comment: Specimen Type: BLOOD SPECIMENOrdering Facility: [facility] Address:[address] [place], [place] [address]Performed By: #### 93381-4 ####[facility] LABIA [id number] [place], [place] [address]Grzqjtivhzr (Bld) [#/Vol]1.41 10*3/uLHigh<0.46[facility] above: Order Comment: Specimen Type: BLOOD SPECIMENOrdering Facility: [facility] Address:[address] [place], [place] [address]Performed By: #### 44914- 8 ####[facility] LABCL[facility] [id number] [place], [place] [address]Hsdvaafkbog/100 WBC (Bld)14.6 %NormalUC [facility] on above:Order Comment: Specimen Type: BLOOD SPECIMENOrdering Facility: [facility] Address:[address] [place], [place] [address]Performed By: #### 08119-9 ####[facility] LABIA [id number] [place], [place] [address]Nlbjipyndzb distribution width (RBC) [Ratio]14.2 %Cipwlx40.5-15.0[facility] on above: Order Comment: Specimen Type: BLOOD SPECIMENOrdering Facility: [facility] Address:[address] [place], [place] [address]Performed By: #### [id number]- 8 ####[facility] LABCL[facility] [id number] [place], [place] [address]Zpbykvmtpy (Bld) [Volume fraction]33.5 %Low39.0-51.0 [facility] on above:Order Comment: Specimen Type: BLOOD SPECIMENOrdering Facility: [facility] [facility] Address:[address] [place], [place] [address]Performed By: #### 05679-1 ####[facility] [id number] [place], [place] [address]Epvfisedwh (Bld) [Mass/Vol]11.4 g/dLLow13.0-17.0[facility] on above:Order Comment: Specimen Type: BLOOD SPECIMENOrdering Facility: [facility] Address:[address] [place], [place] [address]Performed By: #### 27322- 8 ####[facility] [id number] [place], [place] [address]Vnispcwp granulocytes (Bld) [#/Vol]0.03 10*3/uLNormal <0.10[facility] on above:Order Comment: Specimen Type: BLOOD SPECIMENOrdering Facility: [facility] Address:[address] [place], [place] [address]Performed By: #### 94723-7 ####[facility] [id number] [place], [place] [address]Tadylzho granulocytes/100 WBC (Bld)0.3 %NormalUC [facility] on above: Order Comment: Specimen Type: BLOOD SPECIMENOrdering Facility: [facility] Address:[address] [place], [place] [address]Performed By: #### 90056- 8 ####[facility] [id number] [place], [place] [address]Hjruedzbdkl (Bld) [#/Vol]1.39 10*3/uLNormal1.00-4.00 [facility] on above:Order Comment: Specimen Type: BLOOD SPECIMENOrdering Facility: [facility] Address:[address] [place], [place] [address]Performed By: #### 55644-1 ####[facility] [id number] [place], [place] [address]Vkpzbtotwzi/100 WBC (Bld)14.4 %NormalUC [facility] on above:Order Comment: Specimen Type: BLOOD SPECIMENOrdering Facility: [facility] Address:[address] [place], [place] [address]Performed By: #### 47411-9 ####[facility] [id number] [place], [place] [address]UWO (RBC) [Entitic mass]29.8 xnHlkvuy41.0-34.0[facility] on above:Order Comment: Specimen Type: BLOOD SPECIMENOrdering Facility: [facility] Address:[address] [place], [place] [address]Performed By: #### 41559-6 ####[facility] [id number] [place], [place] [address]HWOP (RBC) [Mass/Vol]34.0 g/aRAiyasg85.5-36.0[facility] on above: Order Comment: Specimen Type: BLOOD SPECIMENOrdering Facility: [facility] Address:[address] [place], [place] [address]Performed By: #### 75713- 8 ####[facility] [id number] [place], [place] [address]MXT (RBC) [Entitic vol]87.5 cTYljkqk52.0-100.0[facility] on above:Order Comment: Specimen Type: BLOOD SPECIMENOrdering Facility: [facility] Address:[address] [place], [place] [address]Performed By: #### 22040-5 ####[facility] [id number] [place], [place] [address]Fclghfkft (Bld) [#/Vol]0.73 10*3/uLNormal<0.87[facility] on above:Order Comment: Specimen Type: BLOOD SPECIMENOrdering Facility: [facility] Address:[address] [place], [place] [address]Performed By: #### 06582- 8 ####[facility] [id number] [place], [place] [address]Nnkfatqia/100 WBC (Bld)7.5 %NormalUC [facility] on above:Order Comment: Specimen Type: BLOOD SPECIMENOrdering Facility: [facility] Address:[address] [place], [place] [address]Performed By: #### 13068-2 ####[facility] [id number] [place], [place] [address]Gwhdpooxtii (Bld) [#/Vol]6.05 10*3/uLNormal1.45-7.50[facility] on above:Order Comment: Specimen Type: BLOOD SPECIMENOrdering Facility: [facility] Address:[address] [place], [place] [address]Performed By: #### 08763-4 ####[facility] [id number] [place], [place] [address]Ihdtqaytblh/100 WBC (Bld)62.6 %NormalUC [facility] on above:Order Comment: Specimen Type: BLOOD SPECIMENOrdering Facility: [facility] Address:[address] [place], [place] [address]Performed By: #### 15573-3 ####[facility] [id number] [place], [place] [address]Czpyjaoyz RBC (Bld) [#/Vol] 10*3/uLNormal<0.01[facility] on above:Order Comment: Specimen Type: BLOOD SPECIMENOrdering Facility: [facility] Address:[address] [place], [place] [address]Performed By: #### 80377-3 ####[facility] [id number] [place], [place] [address]Qlgewchqg RBC/100 WBC (Bld) [Ratio]0.0 /100 WBCNormal [facility] on above:Order Comment: Specimen Type: BLOOD SPECIMENOrdering Facility: [facility] Address:[address] [place], [place] [address]Performed By: #### 81804-4 ####[facility] [id number] [place], [place] [address]Qgtpgpar mean volume (Bld) [Entitic vol]9.1 fLNormal9.0-12.7CFulton County Health Center on above:Order Comment: Specimen Type: BLOOD SPECIMENOrdering Facility: [facility] Address:[address] [place] [address] Performed By: #### 09149-3 ####[facility] [id number] [place], [place] [address]Kiktflpsg (Bld) [#/Vol]292 10*3/bASzouyc174-314CmxmjpjcfUC [facility] on above:Order Comment: Specimen Type: BLOOD SPECIMENOrdering Facility: [facility] Address:[address] [place], [place] [address]Performed By: #### 16598-9 ####[facility] [id number] [place], [place] [address]OWP (Bld) [#/Vol]3.83 10*6/uLLow4.20-6.00[facility] on above:Order Comment: Specimen Type: BLOOD SPECIMENOrdering Facility: [facility] Address:[address] [place], [place] [address], [place] [address]Uulhrkxpd By: #### 11927-5 ####[facility] [id number] [place], [place] [address]TOX (Bld) [#/Vol]9.67 10*3/uL Normal3.70-11.00[facility] HospitalComment on above:Order Comment: Specimen Type: BLOOD SPECIMENOrdering Facility: [facility] Address:GiulianaASHTABULA GENERAL [facility]ALTAM[place], [place] [address]Abqynubbe By: #### 50389-2 ####[facility] SYSTEMSMARIBEL [facility] LABCLIA [id number] [place], [place] [address]YAZ CBC W AUTO DIFF BLDon 22-54-8653Amyhtfszf/100 WBC (Bld)0.6 %[facility] BASOPHILS # BLD AUTO0.06NINFAlvin J. Siteman Cancer Center DIFFERENTIAL METHOD BLDAutoNOMSaint Luke's North Hospital–[facility]ville EOSINOPHIL # BLD AUTO1.41HighNINF [facility] LYMPHOCYTES # BLD AUTO1.39NOCooper County Memorial Hospital MONOCYTES # BLD AUTO0.73NIBaptist Memorial HospitalF NEUTROPHILS # BLD AUTO6.05NOCarondelet HealthF NRBC # BLD AUTO<0.01NINFAlvin J. Siteman Cancer Center NRBC/100 WBC BLD-RTO0/100 WBCAlvin J. Siteman Cancer Center PLATELET # BLD GVAM808SLBCThe Rehabilitation Institute of St. LouisF PMV BLD AUTO9.1 fL9.0 - 12.[address]LThe Rehabilitation Institute [address] LouisF WBC # BLD AUTO9.67NOMercy Hospital St. John'sEosinophils/100 WBC (Bld)14.6 %[facility] HealthcareErythrocyte distribution width (RBC) [Ratio]14.2 %11.5 - 15.0 %NOMS HealthcareHematocrit (Bld) [Volume fraction]33.5 %Low39.0 - 51.0 % [facility]OM[facility] HealthcareHemoglobin (Bld) [Mass/Vol]11.4 g/dLLow13.0 - 17.0 g/dLSt. Louis VA Medical CenterIM GRANULOCYTES # BLD AUTO0.03NINFGolden Valley Memorial Hospital GRANULOCYTES/LEUK NFR BLD AUTO0.3 %[facility]OM[facility] HealthcareInterpretation and review of laboratory resultsAbnormEinstein Medical Center MontgomeryLymphocytes/100 WBC (Bld)14.4 %[facility] County Memorial HospitalH (RBC) [Entitic mass]29.8 pg26.0 - 34.0 pgWashington County Memorial HospitalHC (RBC) [Mass/Vol]34 g/dL30.5 - 36.0 g/dLWashington County Memorial HospitalV (RBC) [Entitic vol]87.5 fL 80.0 - 100.0 fLSt. Louis VA Medical CenterMonocytes/100 WBC (Bld)7.5 %[facility] Neutrophils/100 WBC (Bld)62.6 %St[facility] VA Medical CenterRBC (Bld) [#/Vol]3.83 10*6/uLLow 4.20 - 6.00 m/uLGARFIELD MEMORIAL HOSPITAL HealthcareSpecimen Type: BLOOD SPECIMEN Ordering [facility] Address: [address] [place] [address] Original Ordering Provider: LO WEAVERCarondelet HealthCNOVSPon 24-31-7044LQUPXSQrulifXknyxkeod Clinic ClevelandCNPNon 93-82-0100SFJBLdsmfw [facility] HospitalCT BRAIN WO/W IVCONon 07-20-2024* * *Final Report* * * DATE OF EXAM: Jul 20 2024 3:26PM [facility] 0007 - CT BRAIN WO/W IVCON / [...] of the partially visualized orbits, although bilateral cabazon lens placements are noted on the prior exam. The skull base and imaged soft tissues are unremarkable. Punch Card Operator (topogram) images: Noncontributory IMPRESSION: No acute intracranial [...] any questions regarding this interpretation, please call [phone]. If you are unable to reach us at the number above, please feel free to contact [facility] Hospital[facility] at [phone]. [id number]^AGFA_IDC^SI^ACNCCFRadiology, Radiologist, - 07/20/2024 * * *Final Report* * * DATE OF EXAM: Jul 20 2024 3:26PM [facility] 0007 - CT BRAIN WO/W IVCON / [...] of the partially visualized orbits, although bilateral cabazon lens placements are noted on the prior exam. The skull base and imaged soft tissues are unremarkable. Punch Card Operator (topogram) images: Noncontributory IMPRESSION: No acute intracranial abnormality. Postoperative and chronic changes as detailed. Transcribe Date/Time: Jul 20 2024 3:27P Dictated by: SIDNEY RAEL MD This examination was interpreted and the report reviewed and electronically signed by: SIDNEY REAL MD on Jul 20 2024 3:35PM EST Thank you for allowing us to participate in the care of your patient. Should there be any questions regarding this interpretation, please call [phone]. If you are unable to reach us at the number above, please feel free to contact [facility] eRadiology at [phone]. [phone]^AGFA_IDC^SI^ACN [facility] BRAIN WO/W IVCONNormalBarberton Citizens HospitalRadiology Study observation (narrative)NOMS HealthcareCT Head WO and W contrast Landy 67-89-1157AZBLBXQVAJ: No acute intracranial abnormality. Postoperative and chronic [...] any questions regarding this interpretation, please call [phone]. If you are unable to reach us at the number above, please feel free to contact [facility] Hospitaliology at [phone].DIVISION OF RADIOLOGY* * *Final Report* * * DATE OF EXAM: Jul 20 2024 3:26PM [facility] 0007 - CT BRAIN WO/W IVCON / [...] of the partially visualized orbits, although bilateral cabazon lens placements are noted on the prior exam. The skull base and imaged soft tissues are unremarkable. Punch Card Operator (topogram) images: Noncontributory DIVISION OF RADIOLOGYProvider, [facility] Imaging Datto - 07/20/2024 * * *Final Report* * * DATE OF EXAM: Jul 20 2024 3:26PM [facility] 0007 - CT BRAIN WO/W IVCON / [...] of the partially visualized orbits, although bilateral cabazon lens placements are noted on the prior exam. The skull base and imaged soft tissues are unremarkable. Punch Card Operator (topogram) images: Noncontributory IMPRESSION IMPRESSION: No acute [...] any questions regarding this interpretation, please call [phone]. If you are unable to reach us at the number above, please feel free to contact [facility] eRadiology at [phone]. [facility] CenterRadiology Study observation (narrative)[facility] Comprehensive metabolic 2000 panelon 95-58-5926Iqaplrm [Mass/Vol]4.4 g/dLNormal 3.9-4.9CFulton County Health Center on above:Order Comment: Specimen Type: BLOOD SPECIMENOrdering Facility: [facility] Address:[address] [place] [address]Pcljyuoxc By: #### 21014-9 ####[facility] [id number] [place], [place] [address]EIH [Catalytic activity/Vol]96 U/LIvoqag44-997FokymbywkUC [facility] on above:Order Comment: Specimen Type: BLOOD SPECIMENOrdering Facility: [facility] Address:[address] [place], [place] [address]Ctqpnczmd By: #### 58233-5 ####[facility] [id number] [place], [place] [address]ICE [Catalytic activity/Vol]15 U/IQkcdol18-61ZarnkajlzUC [facility] on above:Order Comment: Specimen Type: BLOOD SPECIMENOrdering Facility: [facility] Address:[address] [place], [place] [address]Performed By: #### 51610-6 ####[facility] [id number] ERNIE JOCELYNREUNION REHABILITATION [facility] [place], [place] [address]Hnhov gap [Moles/Vol]11 mmol/LNormal8-15[facility] on above:Order Comment: Specimen Type: BLOOD SPECIMENOrdering Facility: [facility] Address:[address] [place], [place] [address]Performed By: #### 37706- 8 ####[facility] [id number] ER[facility]IEORANGE COUNTY [facility] [place], [place] [address]NXQ [Catalytic activity/Vol]16 U/DKueuqq95-96FixsywiccUC [facility] on above:Order Comment: Specimen Type: BLOOD SPECIMENOrdering Facility: [facility] Address:[address] [place], [place] [address]Performed By: #### 12578-4 ####[facility] [id number] ERNIESANTIAM HOSPITALRENEWE[place], [place] [address]Hrqsgmfph [Mass/Vol]0.3 mg/dLNormal0.2-1.3CFulton County Health Center on above:Order Comment: Specimen Type: BLOOD SPECIMENOrdering Facility: [facility] Address:[address] [place], [place] [address]Performed By: #### 79033- 8 ####[facility] [id number] ERNIE JEROME COTTONREUNION REHABIL[facility]ATION [facility] [place], [place] [address]Fckqxxd [Mass/Vol]9.4 mg/dLNormal8.5-10.2CFulton County Health Center on above:Order Comment: Specimen Type: BLOOD SPECIMENOrdering Facility: [facility] Address:[address] [place], [place] [address]Performed By: #### 62299-3 ####[facility] [id number] ERNIESANTIAM HOSPITALRENEWESTVILLE, [place] [address]Igjkvtgz [Moles/Vol]104 mmol/L Aorcnm28-847FzublkkcwUC [facility] on above:Order Comment: Specimen Type: BLOOD SPECIMENOrdering Facility: [facility] Address:[address] [place], [place] [address]Performed By: #### 70711-8 ####[facility] [id number] [place] [address] CO2 [Moles/Vol]28 mmol/IUqvqkf84-23MgwgaligmUC [facility] on above: Order Comment: Specimen Type: BLOOD SPECIMENOrdering Facility: [facility] Address:[address] [place], [place] [address]Performed By: #### 91711- 8 ####[facility] [id number] [place], [place] [address]Gmwmkzqmlf [Mass/Vol]0.64 mg/dLLow0.73-1.22[facility] on above:Order Comment: Specimen Type: BLOOD SPECIMENOrdering Facility: [facility] Address:[address] [place], [place] [address]Performed By: #### 29938-2 ####[facility] [id number] [place], [place] [address]Omylfmvpwu and Glomerular filtration rate.predicted panel (S/P/Bld)103 mL/min/1.73m???Normal >=60[facility] on above:Order Comment: Specimen Type: BLOOD SPECIMENOrdering Facility: [facility] Address:[address] [place], [place] [address]Result Comment: Estimated Glomerular Filtration Rate (eGFR) is calculated using the 2020 CKD-EPI creatinine equation. This equation utilizes serum creatinine, sex, and age as parameters. The creatinine assay has traceable calibration to isotope dilution-mass spectrometry. Refer to KDIGO guidelines for clinical interpretation. In patients with unstable renal function, e.g. those with acute kidney injury, the eGFR may not accurately reflect actual GFR.Performed By: #### 79371-3 ####[facility] [id number] [place], [place] [address]Rwtjdnt [Mass/Vol]158 mg/zZBkcf10-76HfwuquwpmUC [facility] on above:Order Comment: Specimen Type: BLOOD SPECIMENOrdering Facility: [facility] Address:[address] [place] [address]Qpqmlo Comment: The [place] Diabetes Association (ADA) provides guidance for cutoff [...] Standards of Medical Care in Diabetes 2016, [place] [employer]. Diabetes Care. 2016.39(Suppl 1).Performed By: #### 80302-4 ####[facility] [id number] [place], [place] [address]Btutwrqyn [Moles/Vol]3.7 mmol/LNormal3.7-5.1CFulton County Health Center on above: Order Comment: Specimen Type: BLOOD SPECIMENOrdering Facility: [facility] Address:[address] [place] [address]Zzzstgtdf By: #### 00272- 8 ####[facility] [id number] [place], [place] [address]Lxmxxkx [Mass/Vol]6.8 g/dLNormal6.3-8.0[facility] on above:Order Comment: Specimen Type: BLOOD SPECIMENOrdering Facility: [facility] Address:[address] [place], [place] [address]Performed By: #### 95237-0 ####[facility] [id number] [place], [place] [address]Oaaavj [Moles/Vol]143 mmol/L Gnpmym044-361KlwaxkubeUC [facility] on above:Order Comment: Specimen Type: BLOOD SPECIMENOrdering Facility: [facility] Address:[address] [place] [address]Bckdksoum By: #### 49752-1 ####[facility] [id number] [place] [address] Urea nitrogen [Mass/Vol]10 mg/dLNormal9-24[facility] on above:Order Comment: Specimen Type: BLOOD SPECIMENOrdering Facility: [facility] Address:[address] [place], [place] [address]Performed By: #### 22725-8 ####[facility] [id number] [place], [place] [address]Ovaecj SerPl-mCncon 18-47-8324Vbnjhkkn [Mass/Vol] 11.2 ug/dLNormal4.8-19.5CFulton County Health Center on above:Order Comment: Specimen Type: BLOOD SPECIMENOrdering Facility: [facility] Address:[address] [place] [address]Hnejhg Comment: Provided reference range is from 6-10 AM sample collection time.Cortisol Reference Range: 6-10 AM = 4.8-19.5 ug/dL, 4-8 PM = 2.5-11.9 ug/dLPerformed By: #### 3016-3, 2142-08 ####[facility] LABCLIA [id number] [place] [address] [facility] Panel InformationOrdered By: Radiologist Radiology on 36-16-5050CCLQ [employer] Work Phone: TSN SerPl-aCncon 04-67-6121GVB Qn1.160 m[IU]/LNormal 0.270-4.200[facility] on above:Order Comment: Specimen Type: BLOOD SPECIMENOrdering Facility: [facility] Address:[address] [place] [address]Apmosprys By: #### 3016-3, 2142-08 ####[facility] LABCLIA [id number] [facility] [id number] W Auto Differential panel (Bld)on 06-29-2024 Basophils (Bld) [#/Vol]0.03 10*3/uLNormal<0.11CFulton County Health Center on above:Order Comment: Specimen Type: BLOOD SPECIMENOrdering Facility: [facility] Address:[address] [place] [address] Performed By: #### 75813-0 ####[facility] [id number] [place], [place] [address]Cpdtoedzb/100 WBC (Bld)0.3 % NormalUC [facility] on above:Order Comment: Specimen Type: BLOOD SPECIMENOrdering Facility: [facility] Address:[address] [place], [place] [address]Performed By: #### 73253-2 ####[facility] [id number] [place] [address] Differential cell count method Nom (Bld)AutoNormalCSouthview Medical Center Comment on above:Order Comment: Specimen Type: BLOOD SPECIMENOrdering Facility: [facility] Address:[address] [place] [address] Performed By: #### 20448-4 ####[facility] [id number] [place], [place] [address]Rzkrjwirxha (Bld) [#/Vol]1.38 10*3/uLHigh<0.46[facility] on above:Order Comment: Specimen Type: BLOOD SPECIMENOrdering Facility: [facility] Address:[address] [place], [place] [address]Performed By: #### 68671-1 ####[facility] [id number] [place], [place] [address]Dfammvyqjqv/100 WBC (Bld)14.7 %NormalUC [facility] on above:Order Comment: Specimen Type: BLOOD SPECIMENOrdering Facility: [facility] Address:[address] [place], [place] [address]Performed By: #### 01837-0 ####[facility] [id number] [place], [place] [address]Zlgjxxsblcs distribution width (RBC) [Ratio]14.5 %Hotvwg86.5-15.0[facility] above: Order Comment: Specimen Type: BLOOD SPECIMENOrdering Facility: [facility] Address:[address] [place], [place] [address]Performed By: #### 28468- 8 ####[facility] [id number] [place], [place] [address]Vksxefublo (Bld) [Volume fraction]35.3 %Low39.0-51.0 [facility] on above:Order Comment: Specimen Type: BLOOD SPECIMENOrdering Facility: [facility] Address:[address] [place], [place] [address]Performed By: #### 19299-5 ####[facility] [id number] [place], [place] [address]Ysbykptpiq (Bld) [Mass/Vol]11.8 g/dLLow13.0-17.0[facility] on above:Order Comment: Specimen Type: BLOOD SPECIMENOrdering Facility: [facility] Address:[address] [place], [place] [address]Performed By: #### 70830- 8 ####[facility] [id number] [place], [place] [address]Qnqvsaoe granulocytes (Bld) [#/Vol]0.07 10*3/uLNormal <0.10[facility] on above:Order Comment: Specimen Type: BLOOD SPECIMENOrdering Facility: [facility] Address:[address] [place], [place] [address]Performed By: #### 41825-3 ####[facility] [id number] [place], [place] [address]Arwkfndy granulocytes/100 WBC (Bld)0.7 %NormalUC [facility] on above: Order Comment: Specimen Type: BLOOD SPECIMENOrdering Facility: [facility] Address:[address] [place], [place] [address]Performed By: #### 68111- 8 ####[facility] [id number] [place], [place] [address]Xgzoabxuyzd (Bld) [#/Vol]1.46 10*3/uLNormal1.00-4.00 [facility] on above:Order Comment: Specimen Type: BLOOD SPECIMENOrdering Facility: [facility] Address:[address] [place], [place] [address]Performed By: #### 69044-6 ####[facility] [id number] [place], [place] [address]Ptovbrtpqoa/100 WBC (Bld)15.6 %NormalUC [facility] on above:Order Comment: Specimen Type: BLOOD SPECIMENOrdering Facility: [facility] Address:[address] [place], [place] [address]Performed By: #### 56920-3 ####[facility] [id number] [place], [place] [address]EAB (RBC) [Entitic mass]29.4 vrShumcg45.0-34.0[facility] on above:Order Comment: Specimen Type: BLOOD SPECIMENOrdering Facility: [facility] Address:[address] [place], [place] [address]Performed By: #### 28392-8 ####[facility] [id number] [place], [place] [address]HCZA (RBC) [Mass/Vol]33.4 g/iVYhdepn25.5-36.0[facility] on above: Order Comment: Specimen Type: BLOOD SPECIMENOrdering Facility: [facility] Address:[address] [place], [place] [address]Performed By: #### [id number]- [id number] ####[facility] LABCLIA [id number] [place], [place] [address]JSQ (RBC) [Entitic vol]88.0 zYDuvlrp48.0-100.0[facility] on above:Order Comment: Specimen Type: BLOOD SPECIMENOrdering Facility: [facility] Address:[address] [place], [place] [address]Performed By: #### [id number] ####[facility]CL[facility] [id number] [place], [place] [address]Raczgkidc (Bld) [#/Vol]0.93 10*3/uLHigh<0.87[facility] on above:Order Comment: Specimen Type: BLOOD SPECIMENOrdering Facility: [facility] Address:[address] [place], [place] [address]Performed By: #### 61875- 8 ####[facility] LABCLIA [id number] [place], [place] [address]Sfcmivjxl/100 WBC (Bld)9.9 %NormalUC [facility] on above:Order Comment: Specimen Type: BLOOD SPECIMENOrdering Facility: [facility] Address:[address] [place], [place] [address]Performed By: #### 57446-7 ####[facility] LABCL[facility] [id number] [place], [place] [address]Hqpifpljxgj (Bld) [#/Vol]5.51 10*3/uLNormal1.45-7.50[facility] on above:Order Comment: Specimen Type: BLOOD SPECIMENOrdering Facility: [facility] Address:[address] [place], [place] [address]Performed By: #### 84040-7 ####[facility] [id number] [place], [place] [address]Cdybjlgiyjw/100 WBC (Bld)58.8 %NormalUC [facility] on above:Order Comment: Specimen Type: BLOOD SPECIMENOrdering Facility: [facility] Address:[address] [place], [place] [address]Performed By: #### 44745-9 ####[facility] [id number] [place], [place] [address]Cwbimumyp RBC (Bld) [#/Vol] 10*3/uLNormal<0.01[facility] on above:Order Comment: Specimen Type: BLOOD SPECIMENOrdering Facility: [facility] Address:[address] [place], [place] [address]Performed By: #### 70723-5 ####[facility] [id number] [place], [place] [address]Iuyrjmqdn RBC/100 WBC (Bld) [Ratio]0.0 /100 WBCNormal [facility] on above:Order Comment: Specimen Type: BLOOD SPECIMENOrdering Facility: [facility] Address:[address] [place], [place] [address]Performed By: #### 02971-3 ####[facility] [id number] [place], [place] [address]Egfkypug mean volume (Bld) [Entitic vol]9.7 fLNormal9.0-12.7CFulton County Health Center on above:Order Comment: Specimen Type: BLOOD SPECIMENOrdering Facility: [facility] Address:[address] [place] [address] Performed By: #### 98460-0 ####[facility] [id number] [place], [place] [address]Cmtnisjbo (Bld) [#/Vol]252 10*3/xFLfcsjn778-642Inlcwbqxf Clinic ClevelandComment on above:Order Comment: Specimen Type: BLOOD SPECIMENOrdering Facility: [facility] Address:[address] [place], [place] [address]Performed By: #### 20227-2 ####[facility] SYSTEMSMARIBEL [facility] LABCLIA [id number] [place], [place] [address]WFQ (Bld) [#/Vol]4.01 10*6/uLLow4.20-6.00[facility] HospitalComvibra [facility] [place] on above:Order Comment: Specimen Type: BLOOD SPECIMENOrdering Facility: [facility] Address:[address] [place], [place] [address]Performed By: #### 79777-7 ####[facility] [id number] [place], [place] [address]ULY (Bld) [#/Vol]9.38 10*3/uL Normal3.70-11.00[facility] HospitalComvib[facility] [place] on above:Order Comment: Specimen Type: BLOOD SPECIMENOrdering Facility: [facility] Address:[address] [place], [place] [address]Performed By: #### 28956-9 ####[facility] SYSTEMSMARIBEL [facility] LABIA [id number] [place], [place] [address]ICT CBC W AUTO DIFF BLDon 70-71-7470Eqsjuqpub/100 WBC (Bld)0.3 %NOMS HealthcareF BASOPHILS # BLD AUTO0.03NINFAlvin J. Siteman Cancer Center DIFFERENTIAL METHOD BLDAutoNOMS HealthcareF EOSINOPHIL # BLD AUTO1.38HighNINF NOMS HealthcareF LYMPHOCYTES # BLD AUTO1.46NOCarondelet HealthF MONOCYTES # BLD AUTO0.93HighNINFThe Rehabilitation Institute of St. LouisF NEUTROPHILS # BLD AUTO5.51NOCarondelet HealthF NRBC # BLD AUTO<0.01NINFThe Rehabilitation Institute of St. LouisF NRBC/100 WBC BLD-RTO0/100 WBCNOCarondelet HealthF PLATELET # BLD [id number] Rehabilitation Institute of St. LouisF PMV BLD AUTO9.7 fL9.0 - 12.7 fLNOIN HealthcareF WBC # BLD AUTO9.38NOMS HealthcareEosinophils/100 WBC (Bld)14.7 %[facility] Medical CenterErythrocyte distribution width (RBC) [Ratio]14.5 %11.5 - 15.0 %[facility] Medical CenterHematocrit (Bld) [Volume fraction]35.3 %Low39.0 - 51.0 % [facility] Medical CenterHemoglobin (Bld) [Mass/Vol]11.8 g/dLLow13.0 - 17.0 g/dLSt. Louis VA Medical CenterIM GRANULOCYTES # BLD AUTO0.07NINFGolden Valley Memorial Hospital GRANULOCYTES/LEUK NFR BLD AUTO0.7 %[facility] Medical CenterInterpretation and review of laboratory resultsAbnormalSt. Louis VA Medical CenterLymphocytes/100 WBC (Bld)15.6 %[facility] Medical CenterMCH (RBC) [Entitic mass]29.4 pg26.0 - 34.0 pgWashington County Memorial HospitalHC (RBC) [Mass/Vol]33.4 g/dL30.5 - 36.0 g/dLWashington County Memorial HospitalV (RBC) [Entitic vol]88 fL 80.0 - 100.0 fLSt. Louis VA Medical CenterMonocytes/100 WBC (Bld)9.9 %[facility] Neutrophils/100 WBC (Bld)58.8 %[facility] Medical CenterRBC (Bld) [#/Vol]4.01 10*6/uLLow 4.20 - 6.00 m/uLGARFIELD MEMORIAL HOSPITAL HealthcareSpecimen Type: BLOOD SPECIMEN Ordering [facility]: [facility] Address: [address] [place] [address] Original Ordering Provider: LO SERRATOSt. Louis VA Medical CenterComprehensive metabolic 2000 panelon 78-30-8470Wszkflk [Mass/Vol]4.2 g/dLNormal3.9-4.9 [facility] on above:Order Comment: Specimen Type: BLOOD SPECIMENOrdering Facility: [facility] Address:[address] [place], [place] [address]Performed By: #### 81309-0 ####[facility] SYSTEMSMARIBEL [facility] LABCLIA [id number] [place], [place] [address]QGW [Catalytic activity/Vol]88 U/LOiqmop01-220OmdwifoxtUC [facility] Hospital on above:Order Comment: Specimen Type: BLOOD SPECIMENOrdering Facility: [facility] Address:[address] [place], [place] [address]Performed By: #### 94838- 8 ####[facility] SYSTEMSMARIBEL [facility] LABCLIA [id number] [facility] [place], [place] [address]MOP [Catalytic activity/Vol]27 U/IIognlg54-94LvatotejmUC [facility] Hospital on above:Order Comment: Specimen Type: BLOOD SPECIMENOrdering Facility: [facility] Address:[address] [place], [place] [address]Performed By: #### 88980-5 ####[facility] [id number] [place], [place] [address]Oxbnv gap [Moles/Vol]11 mmol/LNormal8-15[facility] on above:Order Comment: Specimen Type: BLOOD SPECIMENOrdering Facility: [facility] Address:[address] [place], [place] [address]Performed By: #### 44677- 8 ####[facility] [id number] [place], [place] [address]MYQ [Catalytic activity/Vol]24 U/UGhehqh43-54CqldtfjsvUC [facility] on above:Order Comment: Specimen Type: BLOOD SPECIMENOrdering Facility: [facility] Address:[address] [place], [place] [address]Performed By: #### 92641-8 ####[facility] [id number] [place], [place] [address]Pdqmytxnd [Mass/Vol]0.4 mg/dLNormal0.2-1.3CFulton County Health Center on above:Order Comment: Specimen Type: BLOOD SPECIMENOrdering Facility: [facility] Address:[address] [place], [place] [address]Performed By: #### 56159- 8 ####[facility] [id number] [place], [place] [address]Jfzjbdw [Mass/Vol]10.0 mg/dLNormal8.5-10.2CFulton County Health Center on above:Order Comment: Specimen Type: BLOOD SPECIMENOrdering Facility: [facility] Address:[address] [place], [place] [address]Performed By: #### 46489-4 ####[facility] [id number] [place], [place] [address]Yanrfblp [Moles/Vol]96 mmol/RPfx33-752IuslvblksUC [facility] Hospital on above:Order Comment: Specimen Type: BLOOD SPECIMENOrdering Facility: [facility] Address:[address] [place], [place] [address]Performed By: #### 43268- 8 ####[facility] [id number] [place], [place] [address]AG7 [Moles/Vol]31 mmol/SSrmt69-49WhujpbcwdUC [facility] on above:Order Comment: Specimen Type: BLOOD SPECIMENOrdering Facility: [facility] Address:[address] [place], [place] [address]Performed By: #### 97255-4 ####[facility] [id number] [place], [place] [address]Gmpwmedxik [Mass/Vol]0.79 mg/dL Normal0.73-1.22[facility] above:Order Comment: Specimen Type: BLOOD SPECIMENOrdering Facility: [facility] Address:[address] [place], [place] [address]Performed By: #### 85240-7 ####[facility] [id number] [place], [place] [address]Niewgbwyns and Glomerular filtration rate.predicted panel (S/P/Bld)97 mL/min/1.73m???Normal>=60[facility] on above:Order Comment: Specimen Type: BLOOD SPECIMENOrdering Facility: [facility] Address:[address] [place], [place] [address]Result Comment: Estimated Glomerular Filtration Rate (eGFR) is [...] not accurately reflect actual GFR.Performed By: #### 88543-3 ####[facility] [id number] [place], [place] [address]Wivjaou [Mass/Vol]155 mg/zTSrmp23-83DpapsuvfbUC [facility] on above:Order Comment: Specimen Type: BLOOD SPECIMENOrdering Facility: [facility] Address:[address] [place], [place] [address]Result Comment: The [place] [employer] (ADA) provides guidance for cutoff [...] Standards of Medical Care in Diabetes 2016, [place] [employer]. Diabetes Care. 2016.39(Suppl 1).Performed By: #### 14891-0 ####[facility] [id number] [place], [place] [address]Nbtvvskms [Moles/Vol]3.8 mmol/LNormal3.7-5.1CFulton County Health Center on above:Order Comment: Specimen Type: BLOOD SPECIMENOrdering Facility: [facility] Address:[address] [id number] By: #### 06513-9 ####[facility] [id number] [place], [place] [address]Zlhfyyy [Mass/Vol]6.9 g/dLNormal6.3-8.0[facility] above:Order Comment: Specimen Type: BLOOD SPECIMENOrdering Facility: [facility] Address:[address] [place], [place] [address]Performed By: #### 31457- 8 ####[facility] [id number] [place], [place] [address]Erolxm [Moles/Vol]138 mmol/IQcyshl882-695ErpuiuykpUC [facility] on above:Order Comment: Specimen Type: BLOOD SPECIMENOrdering Facility: [facility] Address:[address] [place], [place] [address]Performed By: #### 20300-7 ####[facility] [id number] [place], [place] [address]Ewky nitrogen [Mass/Vol]19 mg/dLNormal9-24[facility] above:Order Comment: Specimen Type: BLOOD SPECIMENOrdering Facility: [facility] Address:[address] [place], [place] [address]Performed By: #### 46058-8 ####[facility] [id number] [place], [place] [address]Oeouko SerPl-mCncon 48-49-5746Orsqjljs [Mass/Vol]4.0 ug/dLLow4.8-19.5CFulton County Health Center on above:Order Comment: Specimen Type: BLOOD SPECIMENOrdering Facility: [facility] Address:[address] [place], [place] [address]Result Comment: Provided reference range is from 6-10 AM sample collection time.Cortisol Reference Range: 6-10 AM = 4.8-19.5 ug/dL, 4-8 PM = 2.5-11.9 ug/dLPerformed By: #### 2143-6, 3016-3 ####[facility] LABCLIA [id number] [place] [address] [facility] HEALTHHbA1c (Bld)on 40-97-9095Cuzexat glucose Estimated from glycated hemoglobin (Bld) [Mass/Vol]117 mg/dLNormal [facility] on above:Order Comment: Specimen Type: BLOOD SPECIMENOrdering Facility: [facility] Address:[address] [place], [place] [address]Result Comment: eAG: (Estimated average glucose) is a calculated value from HgbA1c and is investment representative of the average blood glucose level in the last 2-3 month period.Performed By: #### 09374-3 ####[facility] LABIA [id number] ST[address]ETHbA1c (Bld) [Mass fraction]5.7 %High4.3-5.6 [facility] on above:Order Comment: Specimen Type: BLOOD SPECIMENOrdering Facility: [facility] Address:[address] [place], [place] [address]Result Comment: [place] [employer] guidelines indicate that patients with HgbA1c in the range 5.7-6.4% are at increased risk for development of diabetes, and intervention by lifestyle modification may be beneficial. HgbA1c greater or equal to 6.5% is considered diagnostic of diabetes.Performed By: #### 57893-2 ####[facility] LABIA [id number] [place] [id number] [facility] TSH SerPl-aCncon 92-66-2663FJW Qn0.571 m[IU]/LNormal0.270-4.200[facility] on above:Order Comment: Specimen Type: BLOOD SPECIMENOrdering Facility: [facility] Address:[address] [place], [place] [address]Performed By: #### 2143-6, 3016-3 ####[facility] LABIA [id number] [place] [id number] [place] CBC W Auto Differential panel (Bld)on 90-57-0259Yqvxgvjgg (Bld) [#/Vol]0.04 10*3/uLNormal<0.11CFulton County Health Center on above:Order Comment: Specimen Type: BLOOD SPECIMENOrdering Facility: [facility] Address:[address] [place], [place] [address]Performed By: #### 99473-2 ####[facility] SYSTEMSMARIBEL [facility] LABCLIA [id number] [place], [place] [address]Nkhdtqjfl/100 WBC (Bld)0.5 %NormalUC [facility] on above:Order Comment: Specimen Type: BLOOD SPECIMENOrdering Facility: [facility] Address:[address] [place], [place] [address]Performed By: #### 23594-8 ####[facility] SYSTEMSMARIBEL [facility] LABCLIA [id number] [place], [place] [address]Vfrsqeworbpx cell count method Nom (Bld)AutoNormalCFulton County Health Center on above:Order Comment: Specimen Type: BLOOD SPECIMENOrdering Facility: [facility] Address:[address] [place], [place] [address]Performed By: #### 79003-6 ####[facility] SYSTEMSMARIBEL [facility] LABCLIA [id number] [place], [place] [address]Qhutdorydlv (Bld) [#/Vol]1.72 10*3/uLHigh<0.46[facility] on above:Order Comment: Specimen Type: BLOOD SPECIMENOrdering Facility: [facility] Address:[address] [place], [place] [address]Performed By: #### 23860-1 ####[facility] [id number] [place], [place] [address]Whirfijikpr/100 WBC (Bld)22.5 %NormalUC [facility] on above:Order Comment: Specimen Type: BLOOD SPECIMENOrdering Facility: [facility] Address:[address] [place], [place] [address]Performed By: #### 48688-3 ####[facility] [id number] [place], [place] [address]Wtlquaxmtcb distribution width (RBC) [Ratio]14.6 %Normal 11.5-15.0[facility] above:Order Comment: Specimen Type: BLOOD SPECIMENOrdering Facility: [facility] Address:[address] [place], [place] [address]Performed By: #### 69704-4 ####[facility] [id number] [place] [address] Hematocrit (Bld) [Volume fraction]35.6 %Low39.0-51.0[facility] Comment on above:Order Comment: Specimen Type: BLOOD SPECIMENOrdering Facility: [facility] Address:[address] [place] [address] Performed By: #### 46814-2 ####[facility] [id number] [place], [place] [address]Ablkcmhcmb (Bld) [Mass/Vol]11.9 g/dLLow13.0-17.0[facility] on above:Order Comment: Specimen Type: BLOOD SPECIMENOrdering Facility: [facility] Address:[address] [place], [place] [address]Performed By: #### 30898-8 ####[facility] [id number] [place], [place] [address]Veztsapt granulocytes (Bld) [#/Vol]0.03 10*3/uLNormal <0.10[facility] above:Order Comment: Specimen Type: BLOOD SPECIMENOrdering Facility: [facility] Address:[address] [place], [place] [address]Performed By: #### 43537-6 ####[facility] [id number] [place], [place] [address]Dtmwwywo granulocytes/100 WBC (Bld)0.4 %NormalUC [facility] on above: Order Comment: Specimen Type: BLOOD SPECIMENOrdering Facility: [facility] Address:[address] [place], [place] [address]Performed By: #### 62234- 8 ####[facility] [id number] [place], [place] [address]Urvupjaeemv (Bld) [#/Vol]1.47 10*3/uLNormal1.00-4.00 [facility] on above:Order Comment: Specimen Type: BLOOD SPECIMENOrdering Facility: [facility] Address:[address] [place], [place] [address]Performed By: #### 90923-5 ####[facility] [id number] [place], [place] [address]Pgttqknrjsm/100 WBC (Bld)19.2 %NormalUC [facility] on above:Order Comment: Specimen Type: BLOOD SPECIMENOrdering Facility: [facility] Address:[address] [place], [place] [address]Performed By: #### 53856-2 ####[facility] [id number] [place], [place] [address]QDW (RBC) [Entitic mass]29.4 boRaakiu51.0-34.0[facility] on above:Order Comment: Specimen Type: BLOOD SPECIMENOrdering Facility: [facility] Address:[address] [place], [place] [address]Performed By: #### 68781-3 ####[facility] [id number] [place], [place] [address]VYRQ (RBC) [Mass/Vol]33.4 g/iMOqspgg19.5-36.0[facility] on above: Order Comment: Specimen Type: BLOOD SPECIMENOrdering Facility: [facility] Address:[address] [place], [place] [address]Performed By: #### 52473- 8 ####[facility] [id number] [place], [place] [address]HWK (RBC) [Entitic vol]87.9 uWMjvtxn28.0-100.0[facility] on above:Order Comment: Specimen Type: BLOOD SPECIMENOrdering Facility: [facility] Address:[address] [place], [place] [address]Performed By: #### 97569-9 ####[facility] [id number] [place], [place] [address]Juoyzlars (Bld) [#/Vol]0.58 10*3/uLNormal<0.87[facility] on above:Order Comment: Specimen Type: BLOOD SPECIMENOrdering Facility: [facility] Address:[address] [place], [place] [address]Performed By: #### 02476- 8 ####[facility] [id number] [place], [place] [address]Jqoxhatkx/100 WBC (Bld)7.6 %NormalUC [facility] on above:Order Comment: Specimen Type: BLOOD SPECIMENOrdering Facility: [facility] Address:[address] [place], [place] [address]Performed By: #### 55428-8 ####[facility] [id number] [place], [place] [address]Mabtawcbmkq (Bld) [#/Vol]3.81 10*3/uLNormal1.45-7.50[facility] above:Order Comment: Specimen Type: BLOOD SPECIMENOrdering Facility: [facility] Address:[address] [place], [place] [address]Performed By: #### 29785-6 ####[facility] [id number] [place], [place] [address]Lmaxwuwwbca/100 WBC (Bld)49.8 %NormalUC [facility] on above:Order Comment: Specimen Type: BLOOD SPECIMENOrdering Facility: [facility] Address:[address] [place], [place] [address]Performed By: #### 24124-7 ####[facility] [id number] [place], [place] [address]Gohgwloau RBC (Bld) [#/Vol] 10*3/uLNormal<0.01[facility] above:Order Comment: Specimen Type: BLOOD SPECIMENOrdering Facility: [facility] Address:[address] [place], [place] [address]Performed By: #### 18305-6 ####[facility] [id number] [place], [place] [address]Htyjrlyyz RBC/100 WBC (Bld) [Ratio]0.0 /100 WBCNormal [facility] on above:Order Comment: Specimen Type: BLOOD SPECIMENOrdering Facility: [facility] Address:[address] [place], [place] [address]Performed By: #### 27172-8 ####[facility] [id number] [place], [place] [address]Lxtwztxz mean volume (Bld) [Entitic vol]9.6 fLNormal9.0-12.7CFulton County Health Center on above:Order Comment: Specimen Type: BLOOD SPECIMENOrdering Facility: [facility] Address:[address] [place] [address] Performed By: #### 54400-8 ####[facility] [id number] [place], [place] [address]Qtowllmal (Bld) [#/Vol]235 10*3/gSTzrchz332-312ShpwjfaswUC [facility] on above:Order Comment: Specimen Type: BLOOD SPECIMENOrdering Facility: [facility] Address:[address] [place], [place] [address]Performed By: #### 40871-2 ####[facility] [id number] [place], [place] [address]NRX (Bld) [#/Vol]4.05 10*6/uLLow4.20-6.00[facility] above:Order Comment: Specimen Type: BLOOD SPECIMENOrdering Facility: [facility] Address:[address] [place], [place] [address]Performed By: #### 75661-7 ####[facility] [id number] [place], [place] [address]IAM (Bld) [#/Vol]7.65 10*3/uL Normal3.70-11.00[facility] above:Order Comment: Specimen Type: BLOOD SPECIMENOrdering Facility: [facility] Address:[address] [place], [place] [address]Performed By: #### 53749-6 ####[facility] [id number] [place], [place] [address]XMZ CBC W AUTO DIFF BLDon 50-37-4360Aqedrcmvh/100 WBC (Bld)0.5 %[facility] BASOPHILS # BLD AUTO0.04NIBaptist Memorial Hospital for Women DIFFERENTIAL METHOD BLDAutoNOMSaint Luke's North Hospital–[facility]ville EOSINOPHIL # BLD AUTO1.72HighNINF [facility] LYMPHOCYTES # BLD AUTO1.47NOCooper County Memorial Hospital MONOCYTES # BLD AUTO0.58NIBaptist Memorial Hospital for Women NEUTROPHILS # BLD AUTO3.81[facility] NRBC # BLD AUTO<0.01NIBaptist Memorial Hospital for Women NRBC/100 WBC BLD-RTO0/100 WBCAlvin J. Siteman Cancer Center PLATELET # BLD SDLN639PHWSCooper County Memorial Hospital PMV BLD AUTO9.6 fL9.0 - 12.7 fLAlvin J. Siteman Cancer Center WBC # BLD AUTO7.65NOMercy Hospital St. John'sEosinophils/100 WBC (Bld)22.5 %NOMS HealthcareErythrocyte distribution width (RBC) [Ratio]14.6 %11.5 - 15.0 %NOMS HealthcareHematocrit (Bld) [Volume fraction]35.6 %Low39.0 - 51.0 % [facility] CenterHemoglobin (Bld) [Mass/Vol]11.9 g/dLLow13.0 - 17.0 g/dLGolden Valley Memorial Hospital GRANULOCYTES # BLD AUTO0.03NINFGolden Valley Memorial Hospital GRANULOCYTES/LEUK NFR BLD AUTO0.4 %[facility] CenterInterpretation and review of laboratory resultsAbnormEinstein Medical Center MontgomeryLymphocytes/100 WBC (Bld)19.2 %[facility] Memorial HospitalH (RBC) [Entitic mass]29.4 pg26.0 - 34.0 pgWashington County Memorial HospitalHC (RBC) [Mass/Vol]33.4 g/dL30.5 - 36.0 g/dLWashington County Memorial HospitalV (RBC) [Entitic vol]87.9 fL 80.0 - 100.0 fLSt. Louis VA Medical CenterMonocytes/100 WBC (Bld)7.6 %[facility] Neutrophils/100 WBC (Bld)49.8 %[facility] CenterRBC (Bld) [#/Vol]4.05 10*6/uLLow 4.20 - 6.00 m/uLGARFIELD MEMORIAL HOSPITAL HealthcareSpecimen Type: BLOOD SPECIMEN Ordering Facility: [facility] Address: [address] [place] [address] Original Ordering Provider: LO MOREIRAMercy Hospital St. John'sCNOVon 29-22-0058UPXVWbmzjlVfigjamji [facility] Health PardeeCNOVNormalCwayne hospitaland Un[facility] Health PardeeCNOVSPon 66-69-2747XPXVGVNdxvmeNzggumrkz [facility] PardeeComprehensive metabolic 2000 panelon 96-52-2522Huelsbg [Mass/Vol]4.4 g/dLNormal3.9-4.9 [facility] on above:Order Comment: Specimen Type: BLOOD SPECIMENOrdering Facility: [facility] Address:[address] [place] [address]Zhgzqdcji By: #### 35982-8, 43859-9 ####JOSE A [facility] LABCLIA [id number] [place], [place] [address]WJL [Catalytic activity/Vol]81 U/OHkgjyr97-267KgcuvdndzUC [facility] Hospital on above:Order Comment: Specimen Type: BLOOD SPECIMENOrdering Facility: [facility] Address:[address] [place], [place] [address]Performed By: #### 54894-9, 81323-9 ####[facility] HEALTH SYSTEMSMARIBEL [facility] LABCLIA [id number] [place], [place] [address]LRG [Catalytic activity/Vol]24 U/LNormal 10-54[facility] on above:Order Comment: Specimen Type: BLOOD SPECIMENOrdering Facility: [facility] Address:[address] [place], [place] [address]Performed By: #### 76271-8, 61569-8 ####[facility] SYSTEMSMARIBEL [facility] LABCLIA [id number] [place], [place] [address]Qhwov gap [Moles/Vol]11 mmol/LNormal8-15[facility] on above:Order Comment: Specimen Type: BLOOD SPECIMENOrdering Facility: [facility] Address:[address] [place] [address] Performed By: #### 88209-7, 93237-8 ####[facility] SYSTEMSMARIBEL [facility] LABCLIA [id number] [place], [place] [address]NVX [Catalytic activity/Vol]20 U/ONynyzh05-97BmhlwfeshUC [facility] on above:Order Comment: Specimen Type: BLOOD SPECIMENOrdering Facility: [facility] HOSPITAL Address:[address] [place], [place] [address]Performed By: #### 81772- 9, 87695-7 ####[facility] SYSTEMSMARIBEL [facility] LABCLIA [id number] [place], [place] [address]Ywktkppbq [Mass/Vol]0.3 mg/dLNormal0.2-1.3CFulton [facility] on above:Order Comment: Specimen Type: BLOOD SPECIMENOrdering Facility: [facility] Address:[address] [place], [place] [address]Performed By: #### 66688-1, 29579-0 ####[facility] [id number] [place], [place] [address]Sldaeir [Mass/Vol]9.8 mg/dLNormal8.5-10.2CFulton County [facility] Center on above: Order Comment: Specimen Type: BLOOD SPECIMENOrdering Facility: [facility] Address:[address] [place], [place] [address]Performed By: #### 63944- 9, 39084-8 ####[facility] [id number] [place], [place] [address]Etkmzpoa [Moles/Vol]97 mmol/YFch64-663PgqfzvkzcUC [facility] on above:Order Comment: Specimen Type: BLOOD SPECIMENOrdering Facility: [facility] Address:[address] [place], [place] [address]Performed By: #### 62508-5, 10986-7 ####[facility] [id number] [place], [place] [address]SX1 [Moles/Vol]31 mmol/BQuzf96-74TzkvferoyUC [facility] on above:Order Comment: Specimen Type: BLOOD SPECIMENOrdering Facility: [facility] Address:[address] [place], [place] [address]Performed By: #### 57917- 9, 12654-8 ####[facility] [id number] [place], [place] [address]Yvhipsjdfd [Mass/Vol]0.98 mg/dLNormal0.73-1.22 [facility] on above:Order Comment: Specimen Type: BLOOD SPECIMENOrdering Facility: [facility] Address:[address] [place], [place] [address]Performed By: #### 46719-3, 94757-6 ####[facility] [id number] [place] [address] Creatinine and Glomerular filtration rate.predicted panel (S/P/Bld)84 mL/min/1.73m???Normal>=60[facility] on above:Order Comment: Specimen Type: BLOOD SPECIMENOrdering Facility: [facility] Address:[address] [place], [place] [address]Wttrjh Comment: Estimated Glomerular Filtration Rate (eGFR) is [...] not accurately reflect actual GFR.Performed By: #### 79187-2, 08343-0 ####[facility] [id number] [place], [place] [address]Xmcdsai [Mass/Vol]155 mg/xVXchk94-45RhkdhtlsdUC [facility] on above:Order Comment: Specimen Type: BLOOD SPECIMENOrdering Facility: [facility] Address:[address] [place] [address]Yqshlb Comment: The [place] Diabetes Association (ADA) provides guidance for cutoff [...] Standards of Medical Care in Diabetes 2016, [place] [employer]. Diabetes Care. 2016.39(Suppl 1).Performed By: #### 85180- 9, 24981-3 ####[facility] [id number] [place], [place] [address]Diyvdwyir [Moles/Vol]3.1 mmol/LLow3.7-5.1CFulton County [facility] Center on above:Order Comment: Specimen Type: BLOOD SPECIMENOrdering Facility: [facility] Address:[address] [id number] By: #### 00617-2, 52510-5 ####[facility] [id number] [place], [place] [address]Dicrikv [Mass/Vol]6.7 g/dLNormal6.3-8.0[facility] on above:Order Comment: Specimen Type: BLOOD SPECIMENOrdering Facility: [facility] Address:[address] [place], [place] [address]Performed By: #### 13746- 9, 23587-5 ####[facility] [id number] [place], [place] [address]Vlstld [Moles/Vol]139 mmol/RKgtjfj774-873XxrdcpxlmUC [facility] on above:Order Comment: Specimen Type: BLOOD SPECIMENOrdering Facility: [facility] Address:[address] [place], [place] [address]Performed By: #### 84940-8, 25681-0 ####[facility] [id number] [place], [place] [address]Kwrw nitrogen [Mass/Vol]17 mg/dLNormal9-24[facility] on above: Order Comment: Specimen Type: BLOOD SPECIMENOrdering Facility: [facility] Address:[address] [place], [place] [address]Performed By: #### 69324- 9, 98924-0 ####[facility] [id number] [place], [place] [address]Xyjhwa SerPl-mCncon 92-76-1936Itrxvdjd [Mass/Vol] 2.9 ug/dLLow4.8-19.5CFulton County [facility] Center on above:Order Comment: Specimen Type: BLOOD SPECIMENOrdering Facility: [facility] Address:[address] [place], [place] [address]Result Comment: Provided reference range is from 6-10 AM sample collection time.Cortisol Reference Range: 6-10 AM = 4.8-19.5 ug/dL, 4-8 PM = 2.5-11.9 ug/dLPerformed By: #### 3016-3, 6 ####[facility] LABCLIA [id number] [place] [id number] [place] OF AMERICAMAGNESIUMOrdered By: Evelyn Fraga on 67-72-5477Rvfggkhzj [Mass/Vol]1.9 mg/dL1.7 - 2.3 mg/dLCincinnati Va Medical CenterMagnesium SerPl-mCncon 57-26-8471Jcanuxawj [Mass/Vol]1.9 mg/dLNormal 1.7-2.3CFulton County [facility] Center on above:Order Comment: Specimen Type: BLOOD SPECIMENOrdering Facility: [facility] Address:[address] [place], [place] [address]Performed By: #### 17117-9, 37564-5 ####[facility] [id number] [place], [place] [address]Fjmertxhs [Mass/Vol]Ordered By: Evelyn Fraga on 70-79-4017Wuttobpexpllhf and review of laboratory resultsNormalCSelect Medical [facility] SerPl-aCncon 58-12-8991RZX Qn1.700 m[IU]/LNormal0.270-4.200[facility] on above:Order Comment: Specimen Type: BLOOD SPECIMENOrdering Facility: [facility] Address:[address] [place], [place] [address]Performed By: #### 3016-3, 2142-08 ####[facility] LABCLIA [id number] [place] [address] [place] CNCNPATEDon 78-40-3495SYTCNSCKLVkwzouFjouhqnpz Clinic ClevelandCNPNon 06-13-2024 CNPNNormalBarberton Citizens HospitalEmpvalir rehabilitation hospital [facility] [place] Health Noteon 39-89-2210Doibtrem Health [id number]#1.00ProMedica Flower HospitalCNPNon 37-86-3312FVTIIyfapkEyjskmuie Clinic ClevelandCBC W Auto Differential panel (Bld)on 68-71-7932Iptrqdpvr (Bld) [#/Vol]0.03 10*3/uLNormal <0.11CFulton County [facility] Center on above:Order Comment: Specimen Type: BLOOD SPECIMENOrdering Facility: [facility] Address:[address] [place], [place] [address]Performed By: #### 96162-7 ####[facility] [id number] [place] [address] Basophils/100 WBC (Bld)0.5 %NormalUC [facility] on above: Order Comment: Specimen Type: BLOOD SPECIMENOrdering Facility: [facility] Address:[address] [place], [place] [address]Performed By: #### 28199- 8 ####[facility]CL[facility] [id number] [place], [place] [address]Jqtresiodsox cell count method Nom (Bld)AutoNormal [facility] on above:Order Comment: Specimen Type: BLOOD SPECIMENOrdering Facility: [facility] Address:[address] [place], [place] [address]Performed By: #### 11631-5 ####[facility] [id number] [place], [place] [address]Edcfyjrmuez (Bld) [#/Vol]0.44 10*3/uLNormal<0.46[facility] on above: Order Comment: Specimen Type: BLOOD SPECIMENOrdering Facility: [facility] Address:[address] [place], [place] [address]Performed By: #### 60746- 8 ####[facility] [id number] [place], [place] [address]Tqjjszzccke/100 WBC (Bld)7.9 %NormalUC [facility] on above:Order Comment: Specimen Type: BLOOD SPECIMENOrdering Facility: [facility] Address:[address] [place], [place] [address]Performed By: #### 93950-0 ####[facility] LABCL[facility] [id number] [place], [place] [address]Pbpnppfhbrq distribution width (RBC) [Ratio]15.0 %Yydvrr28.5-15.0[facility] on above: Order Comment: Specimen Type: BLOOD SPECIMENOrdering Facility: [facility] Address:[address] [place], [place] [address]Performed By: #### 08440- 8 ####[facility] LABIA [id number] [place], [place] [address]Qolhrxntdp (Bld) [Volume fraction]35.9 %Low39.0-51.0 [facility] on above:Order Comment: Specimen Type: BLOOD SPECIMENOrdering Facility: [facility] Address:[address] [place], [place] [address]Performed By: #### 07227-5 ####[facility] LABIA [id number] [place], [place] [address]Rerpokzbyh (Bld) [Mass/Vol]12.2 g/dLLow13.0-17.0[facility] on above:Order Comment: Specimen Type: BLOOD SPECIMENOrdering Facility: [facility] Address:[address] [place], [place] [address]Performed By: #### 73667- 8 ####[facility] [id number] [place], [place] [address]Lvoyqezu granulocytes (Bld) [#/Vol]10*3/uLNormal<0.10 [facility] on above:Order Comment: Specimen Type: BLOOD SPECIMENOrdering Facility: [facility] Address:[address] [place], [place] [address]Performed By: #### 98989-2 ####[facility] [id number] [place], [place] [address]Wzwgswan granulocytes/100 WBC (Bld)0.4 %NormalUC [facility] on above: Order Comment: Specimen Type: BLOOD SPECIMENOrdering Facility: [facility] Address:[address] [place], [place] [address]Performed By: #### 78950- 8 ####[facility] [id number] [place], [place] [address]Vtijjpdpjis (Bld) [#/Vol]1.01 10*3/uLNormal1.00-4.00 [facility] on above:Order Comment: Specimen Type: BLOOD SPECIMENOrdering Facility: [facility] Address:[address] [place], [place] [address]Performed By: #### 93506-2 ####[facility] LABIA [id number] [place], [place] [address]Gdiazgdrdkx/100 WBC (Bld)18.1 %NormalUC [facility] on above:Order Comment: Specimen Type: BLOOD SPECIMENOrdering Facility: [facility] Address:[address] [place], [place] [address]Performed By: #### 11472-6 ####[facility] LABIA [id number] [place], [place] [address]GJV (RBC) [Entitic mass]29.8 jaMtbwdj28.0-34.0[facility] on above:Order Comment: Specimen Type: BLOOD SPECIMENOrdering Facility: [facility] Address:[address] [place], [place] [address]Performed By: #### 00845-9 ####[facility] LAB[facility] [id number] [place], [place] [address]NCWF (RBC) [Mass/Vol]34.0 g/xCUvblnh56.5-36.0[facility] on above: Order Comment: Specimen Type: BLOOD SPECIMENOrdering Facility: [facility] Address:[address] [place], [place] [address]Performed By: #### 00609- 8 ####[facility] [id number] [place], [place] [address]MZA (RBC) [Entitic vol]87.6 rSHeufyf78.0-100.0[facility] on above:Order Comment: Specimen Type: BLOOD SPECIMENOrdering Facility: [facility] Address:[address] [place], [place] [address]Performed By: #### 44404-5 ####[facility] LABIA [id number] [place], [place] [address]Hynoqyhjt (Bld) [#/Vol]0.59 10*3/uLNormal<0.87[facility] on above:Order Comment: Specimen Type: BLOOD SPECIMENOrdering Facility: [facility] Address:[address] [place], [place] [address]Performed By: #### 98322- 8 ####[facility] [id number] [place], [place] [address]Mcvnepbjj/100 WBC (Bld)10.6 %NormalUC [facility] on above:Order Comment: Specimen Type: BLOOD SPECIMENOrdering Facility: [facility] Address:[address] [place], [place] [address]Performed By: #### 73673-0 ####[facility] [id number] [place], [place] [address]Kipifzqzztr (Bld) [#/Vol]3.49 10*3/uLNormal1.45-7.50[facility] on above:Order Comment: Specimen Type: BLOOD SPECIMENOrdering Facility: [facility] Address:[address] [place], [place] [address]Performed By: #### 43474-8 ####[facility] [id number] [place], [place] [address]Fvtpvnpgbzf/100 WBC (Bld)62.5 %NormalUC [facility] on above:Order Comment: Specimen Type: BLOOD SPECIMENOrdering Facility: [facility] Address:[address] [place], [place] [address]Performed By: #### 71529-9 ####[facility] [id number] [place], [place] [address]Dlykkjvoc RBC (Bld) [#/Vol] 10*3/uLNormal<0.01[facility] on above:Order Comment: Specimen Type: BLOOD SPECIMENOrdering Facility: [facility] Address:[address] [place], [place] [address]Performed By: #### 31627-7 ####[facility] LABIA [id number] [place], [place] [address]Dtauijmmi RBC/100 WBC (Bld) [Ratio]0.0 /100 WBCNormal [facility] on above:Order Comment: Specimen Type: BLOOD SPECIMENOrdering Facility: [facility] Address:[address] [place], [place] [address]Performed By: #### 44953-6 ####[facility] LABIA [id number] [place], [place] [address]Zowvzdpy mean volume (Bld) [Entitic vol]9.4 fLNormal9.0-12.7CFulton County [facility] on above:Order Comment: Specimen Type: BLOOD SPECIMENOrdering Facility: [facility] Address:[address] [place] [address] Performed By: #### 50454-7 ####[facility] LABIA [id number] [place], [place] [address]Aiopkppza (Bld) [#/Vol]205 10*3/cGYbqesu630-098IfgcxxwskUC [facility] on above:Order Comment: Specimen Type: BLOOD SPECIMENOrdering Facility: [facility] Address:[address] [place], [place] [address]Performed By: #### 56528-2 ####[facility] [id number] [place], [place] [address]VPX (Bld) [#/Vol]4.10 10*6/uLLow4.20-6.00[facility] on above:Order Comment: Specimen Type: BLOOD SPECIMENOrdering Facility: [facility] Address:[address] [place], [place] [address]Performed By: #### 91567-5 ####[facility] [id number] [place], [place] [address]ELZ (Bld) [#/Vol]5.58 10*3/uL Normal3.70-11.00[facility] on above:Order Comment: Specimen Type: BLOOD SPECIMENOrdering Facility: [facility] Address:[address] [place], [place] [address]Performed By: #### 33886-5 ####[facility] LAB[facility] [id number] [place], [place] [address]XWKDJGwh 87-31-6888NWJPQHGvpdxcBmprofvqs [facility] CNPNon 99-50-6750WRLWRvcvewMoseouove Clinic ClevelandComprehensive metabolic 2000 panelon 99-16-0275Xeindlj [Mass/Vol]4.5 g/dLNormal3.9-4.9CFulton [facility] on above:Order Comment: Specimen Type: BLOOD SPECIMENOrdering Facility: [facility] Address:[address] [place], [place] [address]Performed By: #### 15483-9 ####[facility] [id number] [place], [place] [address]UDA [Catalytic activity/Vol]67 U/ZDsxgff74-231JkscbqueaUC [facility] on above:Order Comment: Specimen Type: BLOOD SPECIMENOrdering Facility: [facility] Address:[address] [place], [place] [address]Performed By: #### 45883-3 ####[facility] LABCL[facility] [id number] [place] [address] [Catalytic activity/Vol]24 U/UDovwrb66-41CxpfbbuodUC [facility] on above:Order Comment: Specimen Type: BLOOD SPECIMENOrdering Facility: [facility] Address:[address] [place], [place] [address]Performed By: #### 72920-1 ####[facility] [id number] [facility] [facility] [place] [address]Rdosu gap [Moles/Vol]11 mmol/LNormal8-15[facility] on above:Order Comment: Specimen Type: BLOOD SPECIMENOrdering Facility: [facility] Address:[address] [place], [place] [address]Performed By: #### 56250- 8 ####[facility] [id number] [place] [facility] [place] [address]KHA [Catalytic activity/Vol]25 U/LXffqxz16-17YgftlmswiUC [facility] on above:Order Comment: Specimen Type: BLOOD SPECIMENOrdering Facility: [facility] Address:[address] [place], [place] [address]Performed By: #### 42513-2 ####[facility] [id number] [place] [address]Kkaqnnwdp [Mass/Vol]0.4 mg/dLNormal0.2-1.3CFulton [facility] on above:Order Comment: Specimen Type: BLOOD SPECIMENOrdering Facility: [facility] Address:[address] [place], [place] [address]Performed By: #### 82209- 8 ####[facility] [id number] [place] [address]Rorutza [Mass/Vol]9.4 mg/dLNormal8.5-10.2Clevelcarolinas continuecare hospital at university Clinic ClevelandComment on above:Order Comment: Specimen Type: BLOOD SPECIMENOrdering Facility: [facility] Address:[address] [place], [place] [address]Performed By: #### 22483-3 ####[facility] [id number] [place], [place] [address]Vwbwnhrh [Moles/Vol]94 mmol/L Dxl75-154CqpduzrrbUC [facility] on above:Order Comment: Specimen Type: BLOOD SPECIMENOrdering Facility: [facility] Address:[address] [place], [place] [address]Performed By: #### 39981-1 ####[facility] [id number] [place] [address] CO2 [Moles/Vol]32 mmol/WOmqc96-41XhhhhpimpUC [facility] on [facility]: Order Comment: Specimen Type: BLOOD SPECIMENOrdering Facility: [facility] Address:[address] [place], [place] [address]Performed By: #### 12704- 8 ####[facility] [id number] [place], [place] [address]Owgfuzpwzh [Mass/Vol]0.74 mg/dLNormal0.73-1.22[facility] above:Order Comment: Specimen Type: BLOOD SPECIMENOrdering Facility: [facility] Address:[address] [place], [place] [address]Performed By: #### 91508-9 ####[facility] [id number] [place], [place] [address]Gfamoassvb and Glomerular filtration rate.predicted panel (S/P/Bld)99 mL/min/1.73m???Normal>=60 [facility] on above:Order Comment: Specimen Type: BLOOD SPECIMENOrdering Facility: [facility] Address:[address] [place], [place] [address]Result Comment: Estimated Glomerular Filtration Rate (eGFR) is calculated using the 2020 CKD-EPI creatinine equation. This equation utilizes serum creatinine, sex, and age as parameters. The creatinine assay has traceable calibration to isotope dilution-mass spectrometry. Refer to KDIGO guidelines for clinical interpretation. In patients with unstable renal function, e.g. those with acute kidney injury, the eGFR may not accurately reflect actual GFR.Performed By: #### 89427-4 ####[facility] [id number] [place], [place] [address]Ntevtbo [Mass/Vol]143 mg/zTXnuh30-08MbausbnatUC [facility] on above:Order Comment: Specimen Type: BLOOD SPECIMENOrdering Facility: [facility] Address:[address] [place], [place] [address]Ohlaue Comment: The [place] Diabetes Association (ADA) provides guidance for cutoff [...] Standards of Medical Care in Diabetes 2016, [place] [employer]. Diabetes Care. 2016.39(Suppl 1).Performed By: #### 10012-0 ####[facility] [id number] [place], [place] [address]Ozdbjxlst [Moles/Vol]3.2 mmol/LLow3.7-5.1CFulton County [facility] on above:Order Comment: Specimen Type: BLOOD SPECIMENOrdering Facility: [facility] Address:[address] [place], [place] [address]Iuotubait By: #### 32505- 8 ####[facility] [id number] [place], [place] [address]Xflztuk [Mass/Vol]6.4 g/dLNormal6.3-8.0[facility] above:Order Comment: Specimen Type: BLOOD SPECIMENOrdering Facility: [facility] Address:[address] [place], [place] [address]Performed By: #### 70432-3 ####[facility] [id number] [place], [place] [address]Hauxcb [Moles/Vol]137 mmol/L Qoiaql631-153BsheabrgxUC [facility] on above:Order Comment: Specimen Type: BLOOD SPECIMENOrdering Facility: [facility] Address:[address] [place], [place] [address]Performed By: #### 86760-1 ####[facility] [id number] [place] [address] Urea nitrogen [Mass/Vol]15 mg/dLNormal9-24[facility] above:Order Comment: Specimen Type: BLOOD SPECIMENOrdering Facility: [facility] Address:[address] [place], [place] [address]Performed By: #### 12224-2 ####[facility] [id number] [place], [place] [address]Ppdkbd SerPl-mCncon 89-98-0912Slkiucwd [Mass/Vol]7.1 ug/dLNormal4.8-19.5CFulton County [facility] on above:Order Comment: Specimen Type: BLOOD SPECIMENOrdering Facility: [facility] Address:[address] [place], [place] [address]Result Comment: Provided reference range is from 6-10 AM sample collection time.Cortisol Reference Range: 6-10 AM = 4.8-19.5 ug/dL, 4-8 PM = 2.5-11.9 ug/dLPerformed By: #### 3016-3, 2143-6 ####[facility] LABCLIA [id number] [facility] [id number] [place] [address] [place] AOGIVLKKcT4z (Bld)on 60-22-1485Dvojnlc glucose Estimated from glycated hemoglobin (Bld) [Mass/Vol]123 mg/dLNormal [facility] on above:Order Comment: Specimen Type: BLOOD SPECIMENOrdering Facility: [facility] Address:[address] [place], [place] [address]Result Comment: eAG: (Estimated average glucose) is a calculated value from HgbA1c and is investment representative of the average blood glucose level in the last 2-3 month period.Performed By: #### 09743-3 ####[facility] LABIA [id number] [place] [address] [place] JGXJUPQGvT2q (Bld) [Mass fraction]5.9 %High4.3-5.6 [facility] on above:Order Comment: Specimen Type: BLOOD SPECIMENOrdering Facility: [facility] Address:[address] [place], [place] [address]Result Comment: [place] [employer] guidelines indicate that patients with HgbA1c in the range 5.7-6.4% are at increased risk for development of diabetes, and intervention by lifestyle modification may be beneficial. HgbA1c greater or equal to 6.5% is considered diagnostic of diabetes.Performed By: #### 34689-5 ####[facility] LABIA [id number] [place] [address] [place] TSH SerPl-aCncon [id number] Qn1.050 m[IU]/LNormal0.270-4.200[facility] on above:Order Comment: Specimen Type: BLOOD SPECIMENOrdering Facility: [facility] Address:[address] [place], [place] [address]Performed By: #### 3016-3, 2143-6 ####[facility] LABIA [id number] [address] [place] CNOVon [id number] Clinic ClevelandCNOVon 81-81-9991UVQGIlfmzy [facility] HospitalCNOVon 26-93-8554WBDTUmehnuHphequhaw Clinic [place] CBC W Auto Differential panel (Bld)on 01-56-3593Zzydykzck (Bld) [#/Vol]0.05 10*3/uLNormal<0.11CFulton County Health Center on above:Order Comment: Specimen Type: BLOOD SPECIMENOrdering Facility: [facility] Address:[address] [place], [place] [address]Performed By: #### 84959-6 ####[facility] [id number] [place], [place] [address]Hawfpivgu/100 WBC (Bld)0.7 %NormalUC [facility] on above:Order Comment: Specimen Type: BLOOD SPECIMENOrdering Facility: [facility] Address:[address] [place], [place] [address]Performed By: #### 19267-1 ####[facility] [id number] [place], [place] [address]Oecefqbnnyek cell count method Nom (Bld)AutoNormalCFulton County Health Center on above:Order Comment: Specimen Type: BLOOD SPECIMENOrdering Facility: [facility] Address:[address] [place], [place] [address]Performed By: #### 14925-6 ####[facility] [id number] [place], [place] [address]Psznblphvfs (Bld) [#/Vol]0.32 10*3/uLNormal<0.46[facility] on above:Order Comment: Specimen Type: BLOOD SPECIMENOrdering Facility: [facility] Address:[address] [place], [place] [address]Performed By: #### 62355-5 ####[facility] [id number] [place], [place] [address]Ozpkxokmfqt/100 WBC (Bld)4.2 %NormalUC [facility] on above:Order Comment: Specimen Type: BLOOD SPECIMENOrdering Facility: [facility] Address:[address] [place], [place] [address]Performed By: #### 21817-0 ####[facility] [id number] [place], [place] [address]Kpfyqvvqnsa distribution width (RBC) [Ratio]14.6 %Normal 11.5-15.0[facility] on above:Order Comment: Specimen Type: BLOOD SPECIMENOrdering Facility: [facility] Address:[address] [place], [place] [address]Performed By: #### 98412-4 ####[facility] [id number] [place] [address] Hematocrit (Bld) [Volume fraction]36.0 %Low39.0-51.0[facility] Comment on above:Order Comment: Specimen Type: BLOOD SPECIMENOrdering Facility: [facility] Address:[address] [place] [address] Performed By: #### 71364-6 ####[facility] [id number] [place], [place] [address]Sbisqrnord (Bld) [Mass/Vol]12.1 g/dLLow13.0-17.0[facility] on above:Order Comment: Specimen Type: BLOOD SPECIMENOrdering Facility: [facility] Address:[address] [place], [place] [address]Performed By: #### 68985-4 ####[facility]CLIA [id number] [place], [place] [address]Cccqshte granulocytes (Bld) [#/Vol]10*3/uLNormal<0.10 [facility] on above:Order Comment: Specimen Type: BLOOD SPECIMENOrdering Facility: [facility] Address:[address] [place], [place] [address]Performed By: #### 64421-0 ####[facility] [id number] [place], [place] [address]Kqwhysky granulocytes/100 WBC (Bld)0.3 %NormalUC [facility] Hospital on above: Order Comment: Specimen Type: BLOOD SPECIMENOrdering Facility: [facility] Address:[address] [place], [place] [address]Performed By: #### 85449- 8 ####[facility] LABCL[facility] [id number] [place], [place] [address]Sdtjmfhsvea (Bld) [#/Vol]2.32 10*3/uLNormal1.00-4.00 [facility] on above:Order Comment: Specimen Type: BLOOD SPECIMENOrdering Facility: [facility] Address:[address] [place], [place] [address]Performed By: #### 36991-7 ####[facility] LABCL[facility] [id number] [place], [place] [address]Kcecywhtpwe/100 WBC (Bld)30.8 %NormalUC [facility] Hospital on above:Order Comment: Specimen Type: BLOOD SPECIMENOrdering Facility: [facility] Address:[address] [place], [place] [address]Performed By: #### 53406-0 ####[facility]CL[facility] [id number] [place], [place] [address]QGS (RBC) [Entitic mass]29.3 qkGwndoj24.0-34.0[facility] on above:Order Comment: Specimen Type: BLOOD SPECIMENOrdering Facility: [facility] Address:[address] [place], [place] [address]Performed By: #### 06952-0 ####[facility] LABCL[facility] [id number] [place], [place] [address]ANHP (RBC) [Mass/Vol]33.6 g/sGSkakxw78.5-36.0[facility] on above: Order Comment: Specimen Type: BLOOD SPECIMENOrdering Facility: [facility] Address:[address] [place], [place] [address]Performed By: #### 14079- 8 ####[facility]CL[facility] [id number] [place], [place] [address]AYS (RBC) [Entitic vol]87.2 qXKfidnj93.0-100.0[facility] on above:Order Comment: Specimen Type: BLOOD SPECIMENOrdering Facility: [facility] Address:[address] [place], [place] [address]Performed By: #### 02803-5 ####[facility] [id number] [place], [place] [address]Vtfmbsfqn (Bld) [#/Vol]0.63 10*3/uLNormal<0.87[facility] on above:Order Comment: Specimen Type: BLOOD SPECIMENOrdering Facility: [facility] Address:[address] [place], [place] [address]Performed By: #### 73529- 8 ####[facility] [id number] [place], [place] [address]Mejdqtbrz/100 WBC (Bld)8.4 %NormalUC [facility] Hospital on above:Order Comment: Specimen Type: BLOOD SPECIMENOrdering Facility: [facility] Address:[address] [place], [place] [address]Performed By: #### 40647-5 ####[facility] [id number] [place], [place] [address]Yfhnaovdmqf (Bld) [#/Vol]4.20 10*3/uLNormal1.45-7.50[facility] on above:Order Comment: Specimen Type: BLOOD SPECIMENOrdering Facility: [facility] Address:[address] [place], [place] [address]Performed By: #### 74546-6 ####[facility] [id number] [place], [place] [address]Gedlynkgrzi/100 WBC (Bld)55.6 %NormalUC [facility] Hospital on above:Order Comment: Specimen Type: BLOOD SPECIMENOrdering Facility: [facility] Address:[address] [place], [place] [address]Performed By: #### 96769-6 ####[facility] [id number] [place], [place] [address]Pkchwxzsy RBC (Bld) [#/Vol] 10*3/uLNormal<0.01[facility] on above:Order Comment: Specimen Type: BLOOD SPECIMENOrdering Facility: [facility] Address:[address] [place], [place] [address]Performed By: #### 22892-3 ####[facility]CL[facility] [id number] [place], [place] [address]Uwzjtxhqa RBC/100 WBC (Bld) [Ratio]0.0 /100 WBCNormal [facility] on above:Order Comment: Specimen Type: BLOOD SPECIMENOrdering Facility: [facility] Address:[address] [place], [place] [address]Performed By: #### 71847-8 ####[facility] [id number] [place], [place] [address]Zlcktvqe mean volume (Bld) [Entitic vol]9.7 fLNormal9.0-12.7CFulton County [facility] Center on above:Order Comment: Specimen Type: BLOOD SPECIMENOrdering Facility: [facility] Address:[address] [place] [address] Performed By: #### 25625-3 ####[facility]CL[facility] [id number] [place], [place] [address]Judnaajgx (Bld) [#/Vol]255 10*3/gOVljfou125-409MgjntbnzsUC [facility] on above:Order Comment: Specimen Type: BLOOD SPECIMENOrdering Facility: [facility] Address:[address] [place], [place] [address]Performed By: #### 37857-7 ####[facility] [id number] [place], [place] [address]NBX (Bld) [#/Vol]4.13 10*6/uLLow4.20-6.00[facility] on above:Order Comment: Specimen Type: BLOOD SPECIMENOrdering Facility: [facility] Address:[address] [place], [place] [address]Performed By: #### 95953-9 ####[facility] [id number] [place], [place] [address]DCW (Bld) [#/Vol]7.54 10*3/uL Normal3.70-11.00[facility] on above:Order Comment: Specimen Type: BLOOD SPECIMENOrdering Facility: [facility] Address:[address] [place], [place] [address]Performed By: #### 93876-3 ####[facility] [id number] [place], [place] [address]UJV CBC W AUTO DIFF BLDon 64-45-4307Mcpxvghyi/100 WBC (Bld)0.7 %NOMS HealthcareCCF BASOPHILS # BLD AUTO0.05NINFAlvin J. Siteman Cancer Center DIFFERENTIAL METHOD BLDAutoNOMS [facility] EOSINOPHIL # BLD AUTO0.32NINFNOCooper County Memorial Hospital LYMPHOCYTES # BLD AUTO2.32NOMS [facility] HospitalCCF MONOCYTES # BLD AUTO 0.63NINFNOCarondelet HealthF NEUTROPHILS # BLD AUTO4.2NOMS Regional Medical CenterF NRBC # BLD AUTO<0.01NINFThe Rehabilitation Institute of St. LouisF NRBC/100 WBC BLD-RTO0/[address] John's CCF PLATELET # BLD DSLR350YVPUCarondelet HealthF PMV BLD AUTO9.7 fL9.0 - 12.[address] John'sCCF WBC # BLD AUTO7.54NOMercy Hospital St. John'sEosinophils/100 WBC (Bld)4.2 % NOMS HealthcareErythrocyte distribution width (RBC) [Ratio]14.6 %11.5 - 15.0 % [facility] Medical CenterHematocrit (Bld) [Volume fraction]36 %Low39.0 - 51.0 %[facility] CenterHemoglobin (Bld) [Mass/Vol]12.1 g/dLLow13.0 - 17.0 g/dLSt. Louis VA Medical Center IMM GRANULOCYTES # BLD AUTO<0.03NINFGolden Valley Memorial Hospital GRANULOCYTES/LEUK NFR BLD AUTO0.3 %[facility] CenterInterpretation and review of laboratory resultsAbnormal [facility] Medical CenterLymphocytes/100 WBC (Bld)30.8 %[facility] HospitalH (RBC) [Entitic mass]29.3 pg26.0 - 34.0 pgWashington County Memorial HospitalHC (RBC) [Mass/Vol]33.6 g/dL30.5 - 36.0 g/dLWashington County Memorial HospitalV (RBC) [Entitic vol]87.2 fL80.0 - 100.0 fLSt. Louis VA Medical CenterMonocytes/100 WBC (Bld)8.4 %[facility] CenterNeutrophils/100 WBC (Bld) 55.6 %[facility] Medical CenterRBC (Bld) [#/Vol]4.13 10*6/uLLow4.20 - 6.00 m/uLGARFIELD MEMORIAL HOSPITAL HealthcareSpecimen Type: BLOOD SPECIMEN Ordering [facility] Address: [address] [place] [address] Original Ordering Provider: LO WEAVERISYARELYSt. Louis VA Medical CenterCNOVon 16-95-3448QEZQYerwdvYtoiijwng Clinic ClevelandCNPNon 89-93-9640JAWNJlcbsk [facility] HospitalComprehensive metabolic 2000 panelon 08-37-2133Mcbnzda [Mass/Vol]4.3 g/dLNormal3.9-4.9CSouthview Medical CenterComvibra hospital of [facility] [place] on above:Order Comment: Specimen Type: BLOOD SPECIMENOrdering Facility: [facility] Address:[address] [place], [place] [address]Performed By: #### 03597- 8 ####[facility] [id number] [place], [place] [address]IAQ [Catalytic activity/Vol]62 U/HLwsahp57-830UvjotamglUC [facility] on above:Order Comment: Specimen Type: BLOOD SPECIMENOrdering Facility: [facility] Address:[address] [place], [place] [address]Performed By: #### 64765-8 ####[facility] LABCLIA [id number] [facility] HOSPITALRENEREUNION REHABILITATION HOSPITAL PHOENIXTESSAINCLINE [place], [place] [address]DAE [Catalytic activity/Vol]17 U/FCoadbc94-00GwgevzkzqUC [facility] on above:Order Comment: Specimen Type: BLOOD SPECIMENOrdering Facility: [facility] Address:[address] [place], [place] [address]Performed By: #### 05667- 8 ####[facility]CL[facility] [id number] [place], [place] [address]Itree gap [Moles/Vol]11 mmol/LNormal8-15[facility] on above:Order Comment: Specimen Type: BLOOD SPECIMENOrdering Facility: [facility] Address:[address] [place], [place] [address]Performed By: #### 94351-5 ####[facility] [id number] [place], [place] [address]LAJ [Catalytic activity/Vol]14 U/GGqjgnd53-02QzltcvcvcUC [facility] on above:Order Comment: Specimen Type: BLOOD SPECIMENOrdering Facility: [facility] Address:[address] [place], [place] [address]Performed By: #### 60590-0 ####[facility] [id number] [place] [address] Bilirubin [Mass/Vol]0.3 mg/dLNormal0.2-1.3CFulton County Health Center on above:Order Comment: Specimen Type: BLOOD SPECIMENOrdering Facility: [facility] Address:[address] [place], [place] [address]Performed By: #### 97982-1 ####[facility] LABCL[facility] [id number] QUARMARIALUISA BANKSREUNION REHABILITATION [facility] [place], [place] [address]Ltydlpv [Mass/Vol]9.4 mg/dLNormal8.5-10.2CFulton County Health Center on above:Order Comment: Specimen Type: BLOOD SPECIMENOrdering Facility: [facility] Address:[address] [place], [place] [address]Performed By: #### 60550-9 ####[facility]CL[facility] [id number] [facility]ATION HOSPITALMARIALUISA BANKSREUNION REHABILITATION HOSPITAL [place] [address]Szcripfj [Moles/Vol]94 mmol/DLah08-295XyflmgoyiUC [facility] on above:Order Comment: Specimen Type: BLOOD SPECIMENOrdering Facility: [facility] Address:[address] [place], [place] [address]Performed By: #### 51896- 8 ####[facility] [id number] LLOYD COTTONREUNION REHABILITATION HOSPITAL [place], [place] [address]MB5 [Moles/Vol]30 mmol/KOtxvaq25-65QdnlvtglxUC [facility] on above:Order Comment: Specimen Type: BLOOD SPECIMENOrdering Facility: [facility] Address:[address] [place], [place] [address]Performed By: #### 86709-3 ####[facility] [id number] LLOYD BANKSREUNION REHABILITATION HOS[facility] [place], [place] [address]Eoqwwyovun [Mass/Vol]0.81 mg/dL Normal0.73-1.22[facility] on above:Order Comment: Specimen Type: BLOOD SPECIMENOrdering Facility: [facility] Address:[address] [place], [place] [address]Performed By: #### 88302-8 ####[facility] [id number] [facility] JEROME COTTONREUNION REHABILITATION HOSPITAL [place]TES[place], [place] [address]Vjmngrchwk and Glomerular filtration rate.predicted panel (S/P/Bld)96 mL/min/1.73m???Normal>=60[facility] on above:Order Comment: Specimen Type: BLOOD SPECIMENOrdering Facility: [facility] Address:[address] [place] [address]Comcke Comment: Estimated Glomerular Filtration Rate (eGFR) is [...] not accurately reflect actual GFR.Performed By: #### 34818-0 ####[facility] [id number] [place], [place] [address]Obypwrr [Mass/Vol]135 mg/fOPdcq38-31BmmfnlbwoUC [facility] on above:Order Comment: Specimen Type: BLOOD SPECIMENOrdering Facility: [facility] Address:[address] [place], [place] [address]Result Comment: The [place] [employer] (ADA) provides guidance for cutoff [...] Standards of Medical Care in Diabetes 2016, [place] [employer]. Diabetes Care. 2016.39(Suppl 1).Performed By: #### 68085-6 ####[facility] [id number] [place], [place] [address]Kmnuwztmt [Moles/Vol]3.1 mmol/LLow3.7-5.1CFulton County Health Center on above:Order Comment: Specimen Type: BLOOD SPECIMENOrdering Facility: [facility] Address:[address] [place], [place] [address]Performed By: #### 82053-1 ####[facility] [id number] [place], [place] [address]Ezsuefu [Mass/Vol]6.3 g/dL Normal6.3-8.0[facility] on above:Order Comment: Specimen Type: BLOOD SPECIMENOrdering Facility: [facility] Address:[address] [place], [place] [address]Performed By: #### 31736-2 ####[facility] [id number] [place] [address] Sodium [Moles/Vol]135 mmol/VEze453-907PhbxxegdnUC [facility] on above:Order Comment: Specimen Type: BLOOD SPECIMENOrdering Facility: [facility] Address:[address] [place], [place] [address]Performed By: #### 11659-3 ####[facility] [id number] [place], [place] [address]Otle nitrogen [Mass/Vol]20 mg/dLNormal9-24[facility] on above:Order Comment: Specimen Type: BLOOD SPECIMENOrdering Facility: [facility] Address:[address] [place], [place] [address]Performed By: #### 95476-7 ####[facility] [id number] [place], [place] [address]Proooj SerPl-mCncon 84-03-0903Dkaryfgy [Mass/Vol]2.3 ug/dLLow4.8-19.5CFulton County Health Center on above:Order Comment: Specimen Type: BLOOD SPECIMENOrdering Facility: [facility] Address:[address] [place], [place] [address]Result Comment: Provided reference range is from 6-10 AM sample collection time.Cortisol Reference Range: 6-10 AM = 4.8-19.5 ug/dL, 4-8 PM = 2.5-11.9 ug/dL Performed By: #### 3016-3, 2143-6 ####[facility] LABCLIA [id number] [address] [place] TSH SerPl-aCncon 18-24-5588DGA Qn0.921 m[IU]/LNormal0.270-4.200[facility] on above:Order Comment: Specimen Type: BLOOD SPECIMENOrdering Facility: [facility] Address:[address] [place], [place] [address]Performed By: #### 3016-3, 2143-6 ####[facility] LABCLIA [id number] [address] [place] No Panel Informationon 71-12-0600HofuaRobert King NP 04/23/2024 7:43 PM L Inj/Asp: L subacromial bursa on 04/23/2024 3:10 PM Indications: pain Details: 20 G needle, posterior approach Medications: 40 mg methylPREDNISolone acetate 40 MG/ML Outcome: tolerated well, no immediate complications Site cleaned with isopropyl alcohol Procedure, treatment alternatives, risks and benefits explained, specific risks discussed. Consent was given by the patient. [facility] CenterRobert King NP 04/23/2024 7:43 PM L Inj/Asp: R subacromial bursa on 04/23/2024 3:10 PM Indications: pain Details: 20 G needle, posterior approach Medications: 40 mg methylPREDNISolone acetate 40 MG/ML Outcome: tolerated well, no immediate complications Site cleaned with isopropyl alcohol. Procedure, treatment alternatives, risks and benefits explained, specific risks discussed. Consent was given by the patient. [facility] CenterCNCNPATEDon 37-67-9595JGIAEIQXGKvdrygXulmwspzd Clinic ClevelandCNOVon 11-38-3302ZOPKDqlmgePvzsyeemt Clinic ClevelandCNOVSPon 88-20-8129SXLEEZRmyfauRdcembwmj Clinic Clebellevue hospitalCORTISOL, SERUMon 04-04-2024 Cortisol [Mass/Vol]11.4 ug/dL4.8 - 19.5 ug/dLLutheran Hospital on above: Provided reference range is from 6-10 AM sample collection time. Cortisol Reference Range: 6-10 AM = 4.8-19.5 ug/dL, 4-8 PM = 2.5-11.9 ug/dL No Panel Informationon 26-34-2020Tkhehezxhjhncv and review of laboratory results NormalCrystal Clinic Orthopedic CenterTHYROID STIMULATING HORMONEon 04-04-2024 TSH Qn1.780 m[IU]/LCleveland Lake Region HospitalCBC W Auto Differential panel (Bld)on 83-00-5421Oopvjljdi (Bld) [#/Vol]0.06 10*3/uLNIKindred HealthcareDifferential cell count method Nom (Bld)AutoCleveland ClinicEosinophils (Bld) [#/Vol]1.79 10*3/uLHighNIKindred HealthcareErythrocyte distribution width (RBC) [Ratio]16.0 %High11.5 - 15.0 %[facility] CenterImmature granulocytes (Bld) [#/Vol]0.03 10*3/uLNIKindred HealthcareImvature granulocytes/100 WBC (Bld)0.3 %[facility] Medical CenterLymphocytes (Bld) [#/Vol]2.08 10*3/[facility] HospitalMCV (RBC) [Entitic vol]87.0 fL80.0 - 100.0 fLClevelcarolinas continuecare hospital at university ClinicMonocytes (Bld) [#/Vol]0.55 10*3/uL NINFClevelSelect Medical Specialty Hospital - AkronNeutrophils (Bld) [#/Vol]4.26 10*3/uLCincinnati Va Medical Center Nucleated RBC (Bld) [#/Vol]NINMadison HealthNucleated RBC/100 WBC (Bld) [Ratio]0.0 %/100 WBCCincinnati Va Medical CenterPlatelet mean volume (Bld) [Entitic vol]10.5 fL9.0 - 12.7 fLCmemorial health system selby general hospital ClinicPlatelets (Bld) [#/Vol]259 10*3/uLCincinnati Va Medical CenterWBC (Bld) [#/Vol]8.77 10*3/[facility] HospitalBasophils (Bld) [#/Vol]0.06 10*3/uLNormal<0.11CEast Liverpool City Hospital ClevelandComment on above:Order Comment: Specimen Type: BLOOD SPECIMENOrdering Facility: [facility] Address:[address] [place], [place] [address]Performed By: #### 22757-6 ####[facility]CL[facility] [id number] [place], [place] [address]Jiosvqctq/100 WBC (Bld)0.7 %NormalUC [facility] on above:Order Comment: Specimen Type: BLOOD SPECIMENOrdering Facility: [facility] Address:[address] [place], [place] [address]Performed By: #### 04477-6 ####[facility]CL[facility] [id number] [place], [place] [address]Wbwamfzypgpj cell count method Nom (Bld)AutoNormalCFulton County Health Center on above:Order Comment: Specimen Type: BLOOD SPECIMENOrdering Facility: [facility] Address:[address] [place], [place] [address]Performed By: #### 72114-1 ####[facility]CL[facility] [id number] [place], [place] [address]Ybuswipvpxz (Bld) [#/Vol]1.79 10*3/uLHigh<0.46[facility] above:Order Comment: Specimen Type: BLOOD SPECIMENOrdering Facility: [facility] Address:[address] [place], [place] [address]Performed By: #### 90004-6 ####[facility] [id number] [place], [place] [address]Qlvuipuuklx/100 WBC (Bld)20.4 %NormalUC [facility] on above:Order Comment: Specimen Type: BLOOD SPECIMENOrdering Facility: [facility] Address:[address] [place], [place] [address]Performed By: #### 35308-5 ####[facility] [id number] [place], [place] [address]Njfqlhbfnlf distribution width (RBC) [Ratio]16.0 %High 11.5-15.0[facility] above:Order Comment: Specimen Type: BLOOD SPECIMENOrdering Facility: [facility] Address:[address] [place], [place] [address]Performed By: #### 29113-6 ####[facility]CL[facility] [id number] [place] [address] Hematocrit (Bld) [Volume fraction]35.4 %Low39.0-51.0[facility] Comment on above:Order Comment: Specimen Type: BLOOD SPECIMENOrdering Facility: [facility] Address:[address] [place] [address] Performed By: #### 82880-5 ####[facility] [id number] [place], [place] [address]Rztzpbqkgs (Bld) [Mass/Vol]11.9 g/dLLow13.0-17.0[facility] HospitalComment on above:Order Comment: Specimen Type: BLOOD SPECIMENOrdering Facility: [facility] Address:[address] [place], [place] [address]Performed By: #### 66541-4 ####[facility] [id number] [place], [place] [address]Tdknunpv granulocytes (Bld) [#/Vol]0.03 10*3/uLNormal <0.10[facility] HospitalComment on above:Order Comment: Specimen Type: BLOOD SPECIMENOrdering Facility: [facility] Address:[address] [place], [place] [address]Performed By: #### 54789-4 ####[facility]CL[facility] [id number] [place], [place] [address]Qyyhgdmd granulocytes/100 WBC (Bld)0.3 %NormalUC [facility] Hospital on above: Order Comment: Specimen Type: BLOOD SPECIMENOrdering Facility: [facility] Address:[address] [place], [place] [address]Performed By: #### 43369- 8 ####[facility]CL[facility] [id number] [place], [place] [address]Rqjmlcsvfzu (Bld) [#/Vol]2.08 10*3/uLNormal1.00-4.00 [facility] on above:Order Comment: Specimen Type: BLOOD SPECIMENOrdering Facility: [facility] Address:[address] [place], [place] [address]Performed By: #### 41350-0 ####[facility]CL[facility] [id number] [place], [place] [address]Zmzpujoilal/100 WBC (Bld)23.7 %NormalUC [facility] Hospital on above:Order Comment: Specimen Type: BLOOD SPECIMENOrdering Facility: [facility] Address:[address] [place], [place] [address]Performed By: #### 28922-8 ####[facility]CL[facility] [id number] [place], [place] [address]YLE (RBC) [Entitic mass]29.2 rsPzmlwl93.0-34.0[facility] on above:Order Comment: Specimen Type: BLOOD SPECIMENOrdering Facility: [facility] Address:[address] [place], [place] [address]Performed By: #### 61648-1 ####[facility] [id number] [place], [place] [address]MAFU (RBC) [Mass/Vol]33.6 g/vXSevnxr94.5-36.0[facility] on above: Order Comment: Specimen Type: BLOOD SPECIMENOrdering Facility: [facility] Address:[address] [place], [place] [address]Performed By: #### 70206- 8 ####[facility] [id number] [place], [place] [address]NSA (RBC) [Entitic vol]87.0 iYUgxktu28.0-100.0[facility] on above:Order Comment: Specimen Type: BLOOD SPECIMENOrdering Facility: [facility] Address:[address] [place], [place] [address]Performed By: #### 24367-3 ####[facility] [id number] [place], [place] [address]Quxsyvpid (Bld) [#/Vol]0.55 10*3/uLNormal<0.87[facility] on above:Order Comment: Specimen Type: BLOOD SPECIMENOrdering Facility: [facility] Address:[address] [place], [place] [address]Performed By: #### 22453- 8 ####[facility] [id number] [place], [place] [address]Tasyqmgwl/100 WBC (Bld)6.3 %NormalUC [facility] on above:Order Comment: Specimen Type: BLOOD SPECIMENOrdering Facility: [facility] Address:[address] [place], [place] [address]Performed By: #### 38942-3 ####[facility] [id number] [place], [place] [address]Cpwaaixjalh (Bld) [#/Vol]4.26 10*3/uLNormal1.45-7.50[facility] on above:Order Comment: Specimen Type: BLOOD SPECIMENOrdering Facility: [facility] Address:[address] [place], [place] [address]Performed By: #### 40438-9 ####[facility] [id number] [place], [place] [address]Pjbuzajqiba/100 WBC (Bld)48.6 %NormalUC [facility] on above:Order Comment: Specimen Type: BLOOD SPECIMENOrdering Facility: [facility] Address:[address] [place], [place] [address]Performed By: #### 13350-5 ####[facility] LAB[facility] [id number] [place], [place] [address]Ygyjbepkl RBC (Bld) [#/Vol] 10*3/uLNormal<0.01[facility] above:Order Comment: Specimen Type: BLOOD SPECIMENOrdering Facility: [facility] Address:[address] [place], [place] [address]Performed By: #### 09968-9 ####[facility] [id number] [place], [place] [address]Cubgyqzsu RBC/100 WBC (Bld) [Ratio]0.0 /100 WBCNormal [facility] on above:Order Comment: Specimen Type: BLOOD SPECIMENOrdering Facility: [facility] Address:[address] [place], [place] [address]Performed By: #### 06195-3 ####[facility] [id number] [place], [place] [address]Sfkvxnvm mean volume (Bld) [Entitic vol]10.5 fLNormal9.0-12.7CFulton County Health Center on above:Order Comment: Specimen Type: BLOOD SPECIMENOrdering Facility: [facility] Address:[address] [place] [address] Performed By: #### 67470-6 ####[facility] [id number] [place], [place] [address]Ephwfuxty (Bld) [#/Vol]259 10*3/iOHgolbv499-944UiqlngshaUC [facility] Hospital on above:Order Comment: Specimen Type: BLOOD SPECIMENOrdering Facility: [facility] Address:[address] [place], [place] [address]Performed By: #### 99466-9 ####[facility] [id number] [place], [place] [address]NYZ (Bld) [#/Vol]4.07 10*6/uLLow4.20-6.00[facility] on above:Order Comment: Specimen Type: BLOOD SPECIMENOrdering Facility: [facility] Address:[address] [place], [place] [address]Performed By: #### 75684-5 ####[facility] [id number] [place], [place] [address]AXQ (Bld) [#/Vol]8.77 10*3/uL Normal3.70-11.00[facility] Citizens HospitalComment on above:Order Comment: Specimen Type: BLOOD SPECIMENOrdering Facility: [facility] Address:[address] [place], [place] [address]Performed By: #### 25350-5 ####[facility] SYSTEMSMARIBEL [facility] LABCLIA [id number] [place], [place] [address]JLD CBC W AUTO DIFF BLDon 53-75-1078THK BASOPHILS # BLD AUTO0.06NIBaptist Memorial Hospital for Women DIFFERENTIAL METHOD BLDAutoNOMSaint Luke's North Hospital–[facility] EOSINOPHIL # BLD AUTO1.79HighNIBaptist Memorial Hospital for Women LYMPHOCYTES # BLD AUTO2.08 [facility] MONOCYTES # BLD AUTO0.55NIBaptist Memorial Hospital for Women NEUTROPHILS # BLD AUTO4.26[facility] NRBC # BLD AUTO<0.01NIBaptist Memorial Hospital for Women NRBC/100 WBC BLD-RTO0/100 WBCAlvin J. [facility] Center PLATELET # BLD VYCR105REDSAlvin J. [facility] Cancer [facility] PMV BLD AUTO10.5 fL9.0 - 12.7 fLAlvin J. Siteman Cancer Center WBC # BLD AUTO 8.77[facility] Medical CenterErythrocyte distribution width (RBC) [Ratio]16 %High11.5 - 15.0 %[facility] Medical CenterIM GRANULOCYTES # BLD AUTO0.03NITennessee Hospitals [facility]urlie GRANULOCYTES/LEUK NFR BLD AUTO0.3 %[facility] Medical CenterMCV (RBC) [Entitic vol]87 fL 80.0 - 100.0 fLSt. Louis VA Medical CenterSpecimen Type: BLOOD SPECIMEN [facility] Address: [address] [place], [place] [address] Original Ordering Provider: LO Talbert 18-12-9190Tghwvazk [Mass/Vol]11.4 ug/dLNormal4.8-19.5CSouthview Medical Center Comment on above:Order Comment: Specimen Type: BLOOD SPECIMENOrdering Facility: [facility] Address:[address] [id number] Comment: Provided reference range is from 6-10 AM sample collection time.Cortisol Reference Range: 6-10 AM = 4.8-19.5 ug/dL, 4-8 PM = 2.5-11.9 ug/dL Performed By: #### 3016-3, 2143-6 ####[facility] LABCLIA [id number] [facility] [id number] [place], [place] [id number] [place] GLUCOSE, BLOOD (POC)on 53-02-0725Rxqxnvm [Mass/Vol]103 mg/aWMspyzgst20 - 99 mg/dLCincinnati Va Medical CenterComment on above:Location:[facility], [address] [place] [address] , [place], [place], [facility] The Accu-Chek Inform II glucose meter has [...] above situations. Interpretation and review of laboratory resultsAbnormalCThe Bellevue HospitalHbA1c (Bld)on 69-59-9229Ckzqshh glucose Estimated from glycated hemoglobin (Bld) [Mass/Vol]114 mg/dLCincinnati Va Medical CenterComment on above:eAG: (Estimated average glucose) is a calculated value from HgbA1c and is investment representative of the average blood glucose level in the last 2-3 month period. HbA1c (Bld) [Mass fraction]5.6 %4.3 - 5.6 %[facility] Va Medical CenterComment on above: [place] [employer] guidelines indicate that patients with HgbA1c in the range 5.7-6.4% are at increased risk for development of diabetes, and intervention by lifestyle modification may be beneficial. HgbA1c greater or equal to 6.5% is considered diagnostic of diabetes.[facility] glucose Estimated from glycated hemoglobin (Bld) [Mass/Vol]114 mg/dLNormal [facility] on above:Order Comment: Specimen Type: BLOOD SPECIMENOrdering Facility: [facility] Address:[address] [place], [place] [address]Result Comment: eAG: (Estimated average glucose) is a calculated value from HgbA1c and is investment representative of the average blood glucose level in the last 2-3 month period.Performed By: #### 19779-3 ####[facility] LABCLIA [id number] [place] [address] [place] RZAVLZVBqL2o (Bld) [Mass fraction]5.6 %Normal4.3-5.6 [facility] on above:Order Comment: Specimen Type: BLOOD SPECIMENOrdering Facility: [facility] Address:[address] [place], [place] [address]Result Comment: [place] [employer] guidelines indicate that patients with HgbA1c in the range 5.7-6.4% are at increased risk for development of diabetes, and intervention by lifestyle modification may be beneficial. HgbA1c greater or equal to 6.5% is considered diagnostic of diabetes.Performed By: #### 64829-2 ####[facility] LABCLIA [id number] [address] OF [facility] Laboratory - Hematology and Cell countson 01-52-6749Myvdczcxa/100 WBC (Bld)0.7 % NOMS HealthcareEosinophils/100 WBC (Bld)20.4 %NOMS HealthcareHematocrit (Bld) [Volume fraction]35.4 %Low39.0 - 51.0 %[facility] HealthcareHemoglobin (Bld) [Mass/Vol]11.9 g/dLLow13.0 - 17.0 g/dLNOMS HealthcareLymphocytes/100 WBC (Bld) 23.7 %NOMS [facility] Medical CenterH (RBC) [Entitic mass]29.2 pg26.0 - 34.0 pgNOMS HealthcareMCHC (RBC) [Mass/Vol]33.6 g/dL30.5 - 36.0 g/dLSt. Louis [facility] Medical Center Monocytes/100 WBC (Bld)6.3 %[facility] CenterNeutrophils/100 WBC (Bld)48.6 %[facility] Medical CenterRBC (Bld) [#/Vol]4.07 10*6/uLLow4.20 - 6.00 m/uLPershing Memorial Hospital PET/CT SKULL-THIGH SUBQon 04-03-2024* * [...] * Uptake Time: 48 minutes * Radiopharmaceutical: O79-Rfgbyicbpmynwwvges (FDG) COMPARISON: FDG PET/CT 10/21/2023 CORRELATION: CT [...] any questions regarding this interpretation, please call [phone]. If you are unable to reach us at the number above, please feel free to contact [facility] at [phone]. [id number]^AGFA_IDC^SI^ACNCCFRadiology, RadiologistMD - 04/03/2024 * * *Final Report* [...] * Uptake Time: 48 minutes * Radiopharmaceutical: Y85-Zcetjdtzvekrgsgnam (FDG) COMPARISON: FDG PET/CT 10/21/2023 CORRELATION: CT [...] any questions regarding this interpretation, please call [phone]. If you are unable to reach us at the number above, please feel free to contact [facility] eRadiology at [phone]. [id number]^AGFA_IDC^SI^ACN [facility] PET/CT SKULL-THIGH SUBQNormalCSouthview Medical Center Radiology Study observation (narrative)[facility] Panel Information Ordered By: Cc Provider on 61-39-0562Cpeqsjnjq ClinicNo Panel Informationon 91-83-1847Iyvdggxqkubvfi and review of laboratory resultsAbTransylvania Regional HospitalPET+CT Guidance for localization of tumor of Skull base to mid-thigh-- W 18F-FDG Landy 07-88-7433HZRKQSZHHR: HEAD/NECK: * No FDG avid disease. CHEST: [...] any questions regarding this interpretation, please call [phone]. If you are unable to reach us at the number above, please feel free to contact [facility] Hospital[facility] at [phone].DIVISION OF RADIOLOGY* * *Final Report* * * [...] * Uptake Time: 48 minutes * Radiopharmaceutical: Z79-Gdsabiplvuruksxsut (FDG) COMPARISON: FDG PET/CT 10/21/2023 CORRELATION: CT [...] No radiotracer avid lesion. DIVISION OF RADIOLOGYProvider, [facility] Datto - 04/03/2024 * * *Final Report* * [...] * Uptake Time: 48 minutes * Radiopharmaceutical: E80-Aalcqtioeqryuckupd (FDG) COMPARISON: FDG PET/CT 10/21/2023 CORRELATION: CT [...] any questions regarding this interpretation, please call [phone]. If you are unable to reach us at the number above, please feel free to contact [facility] eRadiology at [phone]. [facility] CenterRadiology Study observation (narrative)[facility] SerPl-aCncon 85-55-2120TGL Qn1.780 m[IU]/LNormal0.270-4.200Bar[facility] Citizens HospitalComment on above:Order Comment: Specimen Type: BLOOD SPECIMENOrdering Facility: [facility] Address:[address] [place], [place] [address]Performed By: #### 3016-3, 2143-6 ####[facility] LABCLIA [id number] [place] [address] [place] CNOVon 89-10-4487BRIGYqmrhbTneaccdko Clinic ClevelandCNPNon 76-92-6995TOXBTbzbpk [facility] Citizens HospitalCNOVon 90-52-6373EMCPKixetqIyickxhot Clinic [place] No Panel Informationon 52-30-3564NtaopRobert King NP 03/08/2024 12:36 PM L Inj/Asp: [...] discussed. Consent was given by the patient. [facility] CenterCNPNon 38-78-9431FRVTJbenjxMoyzqxzel Clinic ClevelandCB W Auto Differential panel (Bld)on 26-42-5722Wixhdazhc (Bld) [#/Vol] 0.09 10*3/uLNormal<0.11CFulton County Health Center on above:Order Comment: Specimen Type: BLOOD SPECIMENOrdering Facility: [facility] Address:[address] [place], [place] [address]Performed By: #### 94454-8 ####[facility] [id number] [place], [place] [address]Vjpqcknot/100 WBC (Bld)0.7 %NormalUC [facility] on above:Order Comment: Specimen Type: BLOOD SPECIMENOrdering Facility: [facility] Address:[address] [place], [place] [address]Performed By: #### 97319-9 ####[facility] [id number] [place], [place] [address]Gppxxojyzldn cell count method Nom (Bld)AutoNormalCFulton County Health Center on above:Order Comment: Specimen Type: BLOOD SPECIMENOrdering Facility: [facility] Address:[address] [place], [place] [address]Performed By: #### 67094-7 ####[facility] [id number] [place], [place] [address]Frygikiuxzy (Bld) [#/Vol]3.12 10*3/uLHigh<0.46[facility] on above:Order Comment: Specimen Type: BLOOD SPECIMENOrdering Facility: [facility] Address:[address] [place], [place] [address]Performed By: #### 05162-7 ####[facility] [id number] [place], [place] [address]Edljtuozmlg/100 WBC (Bld)25.1 %NormalUC [facility] Hospital on above:Order Comment: Specimen Type: BLOOD SPECIMENOrdering Facility: [facility] Address:[address] [place], [place] [address]Performed By: #### 42189-6 ####[facility] LABIA [id number] [place], [place] [address]Ntmxntmgldb distribution width (RBC) [Ratio]15.7 %High 11.5-15.0[facility] on above:Order Comment: Specimen Type: BLOOD SPECIMENOrdering Facility: [facility] Address:[address] [place], [place] [address]Performed By: #### 37395-7 ####[facility] [id number] [place] [address] Hematocrit (Bld) [Volume fraction]33.3 %Low39.0-51.0[facility] Comment on above:Order Comment: Specimen Type: BLOOD SPECIMENOrdering Facility: [facility] Address:[address] [place] [address] Performed By: #### 08687-0 ####[facility] LAB[facility] [id number] [place], [place] [address]Ntbfpkwqpv (Bld) [Mass/Vol]11.2 g/dLLow13.0-17.0[facility] on above:Order Comment: Specimen Type: BLOOD SPECIMENOrdering Facility: [facility] Address:[address] [place], [place] [address]Performed By: #### 60594-2 ####[facility]IA [id number] [place], [place] [address]Eslylxnx granulocytes (Bld) [#/Vol]0.09 10*3/uLNormal <0.10Bar[facility] Citizens HospitalComvibra hospital of [facility] on above:Order Comment: Specimen Type: BLOOD SPECIMENOrdering Facility: [facility] Address:[address] [place], [place] [address]Performed By: #### 00488-7 ####[facility] [id number] [place], [place] [address]Kiybjrxk granulocytes/100 WBC (Bld)0.7 %NormalUC West [facility] Hospital on above: Order Comment: Specimen Type: BLOOD SPECIMENOrdering Facility: [facility] Address:[address] [place], [place] [address]Performed By: #### 75595- 8 ####[facility] [id number] [place], [place] [address]Jhcnbipuodb (Bld) [#/Vol]2.67 10*3/uLNormal1.00-4.00 [facility] on above:Order Comment: Specimen Type: BLOOD SPECIMENOrdering Facility: [facility] Address:[address] [place], [place] [address]Performed By: #### 00750-9 ####[facility] [id number] [place], [place] [address]Mhjtcpcxuvp/100 WBC (Bld)21.5 %NormalUC West Chester Hospital on above:Order Comment: Specimen Type: BLOOD SPECIMENOrdering Facility: [facility] Address:[address] [place], [place] [address]Performed By: #### 96258-9 ####[facility] [id number] [place], [place] [address]IHB (RBC) [Entitic mass]29.5 uuRovedw77.0-34.0[facility] on above:Order Comment: Specimen Type: BLOOD SPECIMENOrdering Facility: [facility] Address:[address] [place], [place] [address]Performed By: #### 93743-9 ####[facility] [id number] [place], [place] [address]VTUM (RBC) [Mass/Vol]33.6 g/hWTdubqg47.5-36.0[facility] on above: Order Comment: Specimen Type: BLOOD SPECIMENOrdering Facility: [facility] Address:[address] [place], [place] [address]Performed By: #### 09321- 8 ####[facility] [id number] [place], [place] [address]FZA (RBC) [Entitic vol]87.6 lGGnzhjm47.0-100.0[facility] on above:Order Comment: Specimen Type: BLOOD SPECIMENOrdering Facility: [facility] Address:[address] [place], [place] [address]Performed By: #### 69886-4 ####[facility] [id number] [place], [place] [address]Wgcvvbdtv (Bld) [#/Vol]1.02 10*3/uLHigh<0.87[facility] on above:Order Comment: Specimen Type: BLOOD SPECIMENOrdering Facility: [facility] Address:[address] [place], [place] [address]Performed By: #### 09833- 8 ####[facility] [id number] [place], [place] [address]Asafpdmdk/100 WBC (Bld)8.2 %NormalUC West Chester Hospital on above:Order Comment: Specimen Type: BLOOD SPECIMENOrdering Facility: [facility] Address:[address] [place], [place] [address]Performed By: #### 48774-9 ####[facility] [id number] [place], [place] [address]Tbrpockqkmm (Bld) [#/Vol]5.42 10*3/uLNormal1.45-7.50[facility] on above:Order Comment: Specimen Type: BLOOD SPECIMENOrdering Facility: [facility] Address:[address] [place], [place] [address]Performed By: #### 86245-7 ####[facility] [id number] [place], [place] [address]Vjravxwihol/100 WBC (Bld)43.8 %NormalUC West [facility] Hospital on above:Order Comment: Specimen Type: BLOOD SPECIMENOrdering Facility: [facility] Address:[address] [place], [place] [address]Performed By: #### 48683-9 ####[facility] [id number] [place], [place] [address]Jusdmmtzc RBC (Bld) [#/Vol] 10*3/uLNormal<0.01[facility] on above:Order Comment: Specimen Type: BLOOD SPECIMENOrdering Facility: [facility] Address:[address] [place], [place] [address]Performed By: #### 37276-7 ####[facility] [id number] [place], [place] [address]Kdyaojqyw RBC/100 WBC (Bld) [Ratio]0.0 /100 WBCNormal [facility] on above:Order Comment: Specimen Type: BLOOD SPECIMENOrdering Facility: [facility] Address:[address] [place], [place] [address]Performed By: #### 09288-0 ####[facility] [id number] [place], [place] [address]Bubllvqz mean volume (Bld) [Entitic vol]10.1 fLNormal9.0-12.7CFulton County Health Center on above:Order Comment: Specimen Type: BLOOD SPECIMENOrdering Facility: [facility] Address:[address] [place] [address] Performed By: #### 02981-1 ####[facility] [id number] [place], [place] [address]Nddfhocph (Bld) [#/Vol]227 10*3/fDGaddhe563-423ZqbehhpysUC [facility] on above:Order Comment: Specimen Type: BLOOD SPECIMENOrdering Facility: [facility] Address:[address] [place], [place] [address]Performed By: #### 25328-3 ####[facility] [id number] [place], [place] [address]JLJ (Bld) [#/Vol]3.80 10*6/uLLow4.20-6.00[facility] on above:Order Comment: Specimen Type: BLOOD SPECIMENOrdering Facility: [facility] Address:[address] [place], [place] [address]Performed By: #### 77633-7 ####[facility] [id number] [place], [place] [address]FAS (Bld) [#/Vol]12.41 10*3/uL High3.70-11.00[facility] on above:Order Comment: Specimen Type: BLOOD SPECIMENOrdering Facility: [facility] Address:[address] [place], [place] [address]Performed By: #### 08656-8 ####[facility] [id number] [place] [address] CCF CBC W AUTO DIFF BLDon 31-30-7028Flmrtmtul/100 WBC (Bld)0.7 %[facility] BASOPHILS # BLD AUTO0.09NIBaptist Memorial Hospital for Women DIFFERENTIAL METHOD BLDAuto [facility] EOSINOPHIL # BLD AUTO3.12HighNIBaptist Memorial Hospital for Women LYMPHOCYTES # BLD AUTO2.67NOCooper County Memorial Hospital MONOCYTES # BLD AUTO1.02HighNINF [facility] NEUTROPHILS # BLD AUTO5.42[facility] NRBC # BLD AUTO <0.01NIBaptist Memorial Hospital for [facility] NRBC/100 WBC BLD-RTO0/100 WBCAlvin J. Sitem[facility] Cancer Center PLATELET # BLD [id number] [facility]. [facility] PMV BLD AUTO10.1 fL9.0 - 12.7 fLAlvin J. Siteman Cancer Center WBC # BLD AUTO12.41HighSt. Louis VA Medical CenterEosinophils/100 WBC (Bld) 25.1 %[facility] CenterErythrocyte distribution width (RBC) [Ratio]15.7 %High11.5 - 15.0 %[facility] CenterHematocrit (Bld) [Volume fraction]33.3 %Low39.0 - 51.0 % [facility] CenterHemoglobin (Bld) [Mass/Vol]11.2 g/dLLow13.0 - 17.0 g/dLGolden Valley Memorial Hospital GRANULOCYTES # BLD AUTO0.09NINFGolden Valley Memorial Hospital GRANULOCYTES/LEUK NFR BLD AUTO0.7 %[facility] CenterInterpretation and review of laboratory resultsAbnormalSt. Louis VA Medical CenterLymphocytes/100 WBC (Bld)21.5 %[facility] HospitalH (RBC) [Entitic mass]29.5 pg26.0 - 34.0 pgWashington County Memorial HospitalHC (RBC) [Mass/Vol]33.6 g/dL30.5 - 36.0 g/dLWashington County Memorial HospitalV (RBC) [Entitic vol]87.6 fL 80.0 - 100.0 fLSt. Louis VA Medical CenterMonocytes/100 WBC (Bld)8.2 %[facility] Neutrophils/100 WBC (Bld)43.8 %[facility] Medical CenterRBC (Bld) [#/Vol]3.8 10*6/uLLow 4.20 - 6.00 m/uLGARFIELD MEMORIAL HOSPITAL HealthcareSpecimen Type: BLOOD SPECIMEN [facility] Address: [address] [place], [place] [address] Original Ordering Provider: LO MOREIRAMercy Hospital St. John'sCNOVSPon 81-95-0164EJESSIMgdhlqBmgzialeq Clinic ClevelandComprehensive metabolic 2000 panelon 19-33-9429Rhorevh [Mass/Vol]4.4 g/dLNormal3.9-4.9CFulton County Health Center on above:Order Comment: Specimen Type: BLOOD SPECIMENOrdering Facility: [facility] Address:[address] [place], [place] [address]Performed By: #### 97192-9 ####JOSE A [facility] LABCLIA [id number] [place], [place] [address]NPH [Catalytic activity/Vol]77 U/PHhxrus51-219ZnvyryneuUC [facility] on above:Order Comment: Specimen Type: BLOOD SPECIMENOrdering Facility: [facility] Address:[address] [place], [place] [address]Performed By: #### 35760-6 ####[facility] SYSTEMSMARIBEL [facility] LABCLIA [id number] ERNIEORANGE COUNTY COMMUNITY HOSPITAL YURYREUNION REHABILITATION H[place] [address]RAH [Catalytic activity/Vol]18 U/TBjeptx45-93GzfjymuzjUC [facility] on above:Order Comment: Specimen Type: BLOOD SPECIMENOrdering Facility: [facility] Address:[address] [place], [place] [address]Performed By: #### 65701-3 ####[facility] [id number] [place], [place] [address]Sqmsg gap [Moles/Vol]10 mmol/LNormal8-15[facility] on above:Order Comment: Specimen Type: BLOOD SPECIMENOrdering Facility: [facility] Address:[address] [place], [place] [address]Performed By: #### 35975- 8 ####[facility] SYSTEMSMARIBEL [facility] LABCLIA [id number] [facility] [place], [place] [address]YFO [Catalytic activity/Vol]17 U/KEhbeci48-88HragmfcvpUC [facility] on above:Order Comment: Specimen Type: BLOOD SPECIMENOrdering Facility: [facility] Address:[address] [place], [place] [address]Performed By: #### 20570-4 ####[facility] [id number] [place], [place] [address]Mddtgglda [Mass/Vol]0.2 mg/dLNormal0.2-1.3CFulton County Health Center on above:Order Comment: Specimen Type: BLOOD SPECIMENOrdering Facility: [facility] Address:[address] [place], [place] [address]Performed By: #### 10047- 8 ####[facility] [id number] [place], [place] [address]Uwlouol [Mass/Vol]9.5 mg/dLNormal8.5-10.2CFulton County Health Center on above:Order Comment: Specimen Type: BLOOD SPECIMENOrdering Facility: [facility] Address:[address] [place], [place] [address]Performed By: #### 73310-3 ####[facility] [id number] [place], [place] [address]Fvpigmwa [Moles/Vol]97 mmol/L Osx40-009SnlsnolkoUC [facility] Hospital on above:Order Comment: Specimen Type: BLOOD SPECIMENOrdering Facility: [facility] Address:[address] [place], [place] [address]Performed By: #### 30494-2 ####[facility] [id number] [place] [address] CO2 [Moles/Vol]32 mmol/INuua91-43CooawlzovUC [facility] on above: Order Comment: Specimen Type: BLOOD SPECIMENOrdering Facility: [facility] Address:[address] [place], [place] [address]Performed By: #### 68087- 8 ####[facility] [id number] [place], [place] [address]Mfugxqkeky [Mass/Vol]0.79 mg/dLNormal0.73-1.22[facility] on above:Order Comment: Specimen Type: BLOOD SPECIMENOrdering Facility: [facility] Address:[address] [place], [place] [address]Performed By: #### 75148-4 ####[facility] [id number] [place], [place] [address]Cxxbwczxem and Glomerular filtration rate.predicted panel (S/P/Bld)97 mL/min/1.73m???Normal>=60 [facility] on above:Order Comment: Specimen Type: BLOOD SPECIMENOrdering Facility: [facility] Address:[address] [place], [place] [address]Result Comment: Estimated Glomerular Filtration Rate (eGFR) is calculated using the 2020 CKD-EPI creatinine equation. This equation utilizes serum creatinine, sex, and age as parameters. The creatinine assay has traceable calibration to isotope dilution-mass spectrometry. Refer to KDIGO guidelines for clinical interpretation. In patients with unstable renal function, e.g. those with acute kidney injury, the eGFR may not accurately reflect actual GFR.Performed By: #### 03279-3 ####[facility] [id number] [place], [place] [address]Rkisaeo [Mass/Vol]122 mg/sBAxja32-85LxjulbbbxUC [facility] on above:Order Comment: Specimen Type: BLOOD SPECIMENOrdering Facility: [facility] Address:[address] [place], [place] [address]Result Comment: The [place] Diabetes Association (ADA) provides guidance for cutoff [...] Standards of Medical Care in Diabetes 2016, [place] Diabetes Association. Diabetes Care. 2016.39(Suppl 1).Performed By: #### 28531-1 ####[facility] [id number] [place], [place] [address]Eucxneonv [Moles/Vol]3.1 mmol/LLow3.7-5.1CFulton County Health Center on above:Order Comment: Specimen Type: BLOOD SPECIMENOrdering Facility: [facility] Address:[address] [place] [address]Vhgzxajvv By: #### 54598- 8 ####[facility] [id number] [place], [place] [address]Qzgiakk [Mass/Vol]6.4 g/dLNormal6.3-8.0[facility] on above:Order Comment: Specimen Type: BLOOD SPECIMENOrdering Facility: [facility] Address:[address] [place], [place] [address]Performed By: #### 40414-2 ####[facility] [id number] [place], [place] [address]Wqrhxm [Moles/Vol]139 mmol/L Sgirsp604-991UeydjqyajUC [facility] on above:Order Comment: Specimen Type: BLOOD SPECIMENOrdering Facility: [facility] Address:[address] [place], [place] [address]Performed By: #### 47282-8 ####[facility] [id number] [place] [address] Urea nitrogen [Mass/Vol]14 mg/dLNormal9-24[facility] on above:Order Comment: Specimen Type: BLOOD SPECIMENOrdering Facility: [facility] Address:[address] [place], [place] [address]Performed By: #### 40195-2 ####[facility] [id number] [place], [place] [address]Fmpven SerPl-mCncon 68-54-8939Bpkeeiyc [Mass/Vol]5.4 ug/dLNormal4.8-19.5CFulton County Health Center on above:Order Comment: Specimen Type: BLOOD SPECIMENOrdering Facility: [facility] Address:[address] [place], [place] [address]Result Comment: Provided reference range is from 6-10 AM sample collection time.Cortisol Reference Range: 6-10 AM = 4.8-19.5 ug/dL, 4-8 PM = 2.5-11.9 ug/dLPerformed By: #### 3016-3, 2143-6 ####[facility] LABCLIA [id number] [facility] [id number] Goodman StreetA1c (Bld)on 12-96-8836Knmiapx glucose Estimated from glycated hemoglobin (Bld) [Mass/Vol]108 mg/dLNormal [facility] on above:Order Comment: Specimen Type: BLOOD SPECIMENOrdering Facility: [facility] Address:[address] [place], [place] [address]Result Comment: eAG: (Estimated average glucose) is a calculated value from HgbA1c and is investment representative of the average blood glucose level in the last 2-3 month period.Performed By: #### 43935-7 ####[facility] [id number] [address] STREETHbA1c (Bld) [Mass fraction]5.4 %Normal4.3-5.6 [facility] on above:Order Comment: Specimen Type: BLOOD SPECIMENOrdering Facility: [facility] Address:[address] [place], [place] [address]Result Comment: [place] Diabetes Association guidelines indicate that patients with HgbA1c in the range 5.7-6.4% are at increased risk for development of diabetes, and intervention by lifestyle modification may be beneficial. HgbA1c greater or equal to 6.5% is considered diagnostic of diabetes.Performed By: #### 22920-0 ####[facility] DAYTONIA [id number] [place] [address] [place] TSH SerPl-aCncon 59-61-3571UFY Qn3.890 m[IU]/LNormal0.270-4.200[facility] on above:Order Comment: Specimen Type: BLOOD SPECIMENOrdering Facility: [facility] Address:[address] [place], [place] [address]Performed By: #### 3016-3, 2143-6 ####[facility] LABIA [id number] [place] [address] [place] CNPNon 71-97-9704SMXIVcibowZqhqswxyn Clinic ClevelandNM QUANT DIFF PULM PERF INC IMAGINGon 81-03-6999IV QUANT DIFF PULM PERF INC IMAGINGNM QUANT [...] with and/or edited the report Finalized by Sanchze Mandel MD on 02/20/2024 12:14 PMNormalProMedica Contra Costa Regional Medical CenterCNOVon 13-88-8344BISOLvauomKzjtbxsfa Clinic ClevelandCNPNon 01-26-2024 CNPNNormalBarberton Citizens HospitalCB W Auto Differential panel (Bld)on 78-34-6723Ahwotcwzr (Bld) [#/Vol]0.05 10*3/uLNIKindred HealthcareDifferential cell count method Nom (Bld)AutoCleveland ClinicEosinophils (Bld) [#/Vol]9.15 10*3/uLHighNIKindred HealthcareEosinophils/100 WBC (Bld)55.0 %[facility] Immature granulocytes (Bld) [#/Vol]0.05 10*3/uLNIKindred HealthcareImmature granulocytes/100 WBC (Bld)0.3 %[facility] Va Medical CenterLymphocytes (Bld) [#/Vol]2.50 10*3/uLCincinnati Va Medical CenterLymphocytes/100 WBC (Bld)15.0 %[facility] CenterMonocytes (Bld) [#/Vol]0.84 10*3/uLNINFCincinnati Va Medical CenterMonocytes/100 WBC (Bld)5.0 % [facility] Medical CenterNeutrophils (Bld) [#/Vol]4.06 10*3/uLCincinnati Va Medical CenterNucleated RBC (Bld) [#/Vol]NINFCleveland ClinicNucleated RBC/100 WBC (Bld) [Ratio]0.0 % /100 WBCCincinnati Va Medical CenterPlatelet mean volume (Bld) [Entitic vol]10.0 fL9.0 - 12.7 fLCmemorial health system selby general hospital ClinicPlatelets (Bld) [#/Vol]194 10*3/uLMarengo ClinicRBC (Bld) [#/Vol]3.50 10*6/uLLow4.20 - 6.00 m/Bluffton HospitalWBC (Bld) [#/Vol] 16.65 10*3/uLHighCincinnati Va Medical CenterBasophils (Bld) [#/Vol]0.05 10*3/uLNormal<0.11 [facility] on above:Order Comment: Specimen Type: BLOOD SPECIMENOrdering Facility: [facility] Address:[address] [place], [place] [address]Performed By: #### 74315-9 ####[facility]IA [id number] [place], [place] [address]Iwbczbhev/100 WBC (Bld)0.3 %NormalUC [facility] Hospital on above:Order Comment: Specimen Type: BLOOD SPECIMENOrdering Facility: [facility] Address:[address] [place], [place] [address]Performed By: #### 05984-2 ####[facility] [id number] [place], [place] [address]Lhdblzmycvtx cell count method Nom (Bld)AutoNormal [facility] on above:Order Comment: Specimen Type: BLOOD SPECIMENOrdering Facility: [facility] Address:[address] [place], [place] [address]Performed By: #### 35601-5 ####[facility] [id number] [place], [place] [address]Gxtwzrqvdit (Bld) [#/Vol]9.15 10*3/uLHigh<0.46[facility] on above: Order Comment: Specimen Type: BLOOD SPECIMENOrdering Facility: [facility] Address:[address] [place], [place] [address]Performed By: #### 51724- 8 ####[facility] [id number] [place], [place] [address]Apcoqujlxaw/100 WBC (Bld)55.0 %NormalUC [facility] Hospital on above:Order Comment: Specimen Type: BLOOD SPECIMENOrdering Facility: [facility] Address:[address] [place], [place] [address]Performed By: #### 16529-7 ####[facility] [id number] [place], [place] [address]Lmxxlhhzrtj distribution width (RBC) [Ratio]15.7 %High11.5-15.0[facility] on above:Order Comment: Specimen Type: BLOOD SPECIMENOrdering Facility: [facility] Address:[address] [place], [place] [address]Performed By: #### 95219- 8 ####[facility] [id number] [place], [place] [address]Wlptweturc (Bld) [Volume fraction]30.2 %Low39.0-51.0 [facility] on above:Order Comment: Specimen Type: BLOOD SPECIMENOrdering Facility: [facility] Address:[address] [place], [place] [address]Performed By: #### 15750-9 ####[facility] [id number] [place], [place] [address]Bsjyargbzp (Bld) [Mass/Vol]10.4 g/dLLow13.0-17.0[facility] on above:Order Comment: Specimen Type: BLOOD SPECIMENOrdering Facility: [facility] Address:[address] [place], [place] [address]Performed By: #### 86924- 8 ####[facility] [id number] [place], [place] [address]Nprpcfyf granulocytes (Bld) [#/Vol]0.05 10*3/uLNormal <0.10[facility] on above:Order Comment: Specimen Type: BLOOD SPECIMENOrdering Facility: [facility] Address:[address] [place], [place] [address]Performed By: #### 88225-2 ####[facility] [id number] [place], [place] [address]Yeqxlflq granulocytes/100 WBC (Bld)0.3 %NormalUC [facility] on above: Order Comment: Specimen Type: BLOOD SPECIMENOrdering Facility: [facility] Address:[address] [place], [place] [address]Performed By: #### 56119- 8 ####[facility] [id number] [place], [place] [address]Hnarroacejs (Bld) [#/Vol]2.50 10*3/uLNormal1.00-4.00 [facility] on above:Order Comment: Specimen Type: BLOOD SPECIMENOrdering Facility: [facility] Address:[address] [place], [place] [address]Performed By: #### 80395-4 ####[facility] [id number] [place], [place] [address]Ouvyoyckvzc/100 WBC (Bld)15.0 %NormalUC [facility] on above:Order Comment: Specimen Type: BLOOD SPECIMENOrdering Facility: [facility] Address:[address] [place], [place] [address]Performed By: #### 20289-1 ####[facility] [id number] [place], [place] [address]CIP (RBC) [Entitic mass]29.7 skKplzoh67.0-34.0[facility] on above:Order Comment: Specimen Type: BLOOD SPECIMENOrdering Facility: [facility] Address:[address] [place], [place] [address]Performed By: #### 46261-3 ####[facility] [id number] [place], [place] [address]JUTZ (RBC) [Mass/Vol]34.4 g/fQWteoka00.5-36.0[facility] on above: Order Comment: Specimen Type: BLOOD SPECIMENOrdering Facility: [facility] Address:[address] [place], [place] [address]Performed By: #### 75512- 8 ####[facility] [id number] [place], [place] [address]VAO (RBC) [Entitic vol]86.3 oIXszrph11.0-100.0[facility] on above:Order Comment: Specimen Type: BLOOD SPECIMENOrdering Facility: [facility] Address:[address] [place], [place] [address]Performed By: #### 09039-7 ####[facility] [id number] [place], [place] [address]Mdtbrpmur (Bld) [#/Vol]0.84 10*3/uLNormal<0.87[facility] on above:Order Comment: Specimen Type: BLOOD SPECIMENOrdering Facility: [facility] Address:[address] [place], [place] [address]Performed By: #### 21988- 8 ####[facility] [id number] [place], [place] [address]Lmzxbjmlx/100 WBC (Bld)5.0 %NormalUC [facility] on above:Order Comment: Specimen Type: BLOOD SPECIMENOrdering Facility: [facility] Address:[address] [place], [place] [address]Performed By: #### 53850-5 ####[facility] [id number] [place], [place] [address]Lggjklselzo (Bld) [#/Vol]4.06 10*3/uLNormal1.45-7.50[facility] on above:Order Comment: Specimen Type: BLOOD SPECIMENOrdering Facility: [facility] Address:[address] [place], [place] [address]Performed By: #### 80470-3 ####[facility] [id number] [place], [place] [address]Dwkhchovlib/100 WBC (Bld)24.4 %NormalUC [facility] on above:Order Comment: Specimen Type: BLOOD SPECIMENOrdering Facility: [facility] Address:[address] [place], [place] [address]Performed By: #### 86751-4 ####[facility] [id number] [place], [place] [address]Joomnqzvw RBC (Bld) [#/Vol] 10*3/uLNormal<0.01[facility] on above:Order Comment: Specimen Type: BLOOD SPECIMENOrdering Facility: [facility] Address:[address] [place], [place] [address]Performed By: #### 50723-0 ####[facility] [id number] [place], [place] [address]Dqnefwveu RBC/100 WBC (Bld) [Ratio]0.0 /100 WBCNormal [facility] on above:Order Comment: Specimen Type: BLOOD SPECIMENOrdering Facility: [facility] Address:[address] [place], [place] [address]Performed By: #### 42142-6 ####[facility] [id number] [place], [place] [address]Seezxstk mean volume (Bld) [Entitic vol]10.0 fLNormal9.0-12.7CFulton County Health Center on above:Order Comment: Specimen Type: BLOOD SPECIMENOrdering Facility: [facility] Address:[address] [place] [address] Performed By: #### 68370-3 ####[facility] [id number] [place], [place] [address]Gpjrlexlf (Bld) [#/Vol]194 10*3/qXQwnnxt220-405FkzlekajwUC [facility] on above:Order Comment: Specimen Type: BLOOD SPECIMENOrdering Facility: [facility] Address:[address] [place], [place] [address]Performed By: #### 36167-7 ####[facility] [id number] [place], [place] [address]ACD (Bld) [#/Vol]3.50 10*6/uLLow4.20-6.00[facility] on above:Order Comment: Specimen Type: BLOOD SPECIMENOrdering Facility: [facility] Address:[address] [place], [place] [address]Performed By: #### 92727-7 ####[facility] [id number] [place], [place] [address]UIC (Bld) [#/Vol]16.65 10*3/uL High3.70-11.00[facility] on above:Order Comment: Specimen Type: BLOOD SPECIMENOrdering Facility: [facility] Address:[address] [place], [place] [address]Performed By: #### 95426-8 ####[facility] [id number] [place] [address] [facility] CBC W AUTO DIFF BLDon 37-39-8242OHX BASOPHILS # BLD AUTO0.05NIBaptist Memorial Hospital for Women DIFFERENTIAL METHOD BLDAutoNOMSaint Luke's North Hospital–[facility]ville EOSINOPHIL # BLD AUTO9.15HighNIBaptist Memorial Hospital for Women LYMPHOCYTES # BLD AUTO2.5[facility] MONOCYTES # BLD AUTO0.84NIBaptist Memorial Hospital for Women NEUTROPHILS # BLD AUTO4.06[facility] NRBC # BLD AUTO<0.01NINFAlvin J. Siteman Cancer Center NRBC/100 WBC BLD-RTO0 /100 WBCAlvin J. Siteman Cancer Center PLATELET # BLD [id number] J. Siteman Cancer Center PMV BLD AUTO 10 fL9.0 - 12.7 fLAlvin J. Siteman Cancer Center WBC # BLD AUTO16.65HighSt. Louis [facility] Eosinophils/100 WBC (Bld)55 %[facility] CenterIMM GRANULOCYTES # BLD AUTO0.05NINF [facility] Medical CenterIMM GRANULOCYTES/LEUK NFR BLD AUTO0.3 %[facility] Lymphocytes/100 WBC (Bld)15 %[facility] CenterMonocytes/100 WBC (Bld)5 %[facility] HealthcareRBC (Bld) [#/Vol]3.5 10*6/uLLow4.20 - 6.00 m/Wilson HealthSpecimen Type: BLOOD SPECIMEN Ordering [facility] Address: [address] [place] [address] Original Ordering Provider: LO TAYLOR ABD/PEL W IVCONoamada 01-25-2024* * *Final Report* * * DATE OF EXAM: Jan 25 2024 10:16AM [facility] 0530 - CT ABD/PEL W IVCON / [...] was performed concurrently and is dictated separately. Punch Card Operator (topogram) images: Unremarkable. IMPRESSION: No metastatic [...] any questions regarding this interpretation, please call [phone]. If you are unable to reach us at the number above, please feel free to contact [facility] eRadiology at [phone]. [id number]^AGFA_IDC^SI^ACNCCFRadiology, Radiologist, - 01/25/2024 * * *Final Report* * * DATE OF EXAM: Jan 25 2024 10:16AM [facility] 0530 - CT ABD/PEL W IVCON / [...] was performed concurrently and is dictated separately. Punch Card Operator (topogram) images: Unremarkable. IMPRESSION: No metastatic [...] any questions regarding this interpretation, please call [phone]. If you are unable to reach us at the number above, please feel free to contact [facility] eRadiology at [phone]. [id number]^AGFA_IDC^SI^ACN NOMS HealthcareCT ABD/PEL W IVCONNormalMount Carmel Health System Abdomen and Pelvis W contrast Landy 07-60-9687CSFYNPFPQK: No metastatic disease in the abdomen or pelvis. Transcribe Date/Time: Jan 25 2024 10:48A Dictated by: BASHIR SUH MD This examination was interpreted and the report reviewed and electronically signed by: BASHIR SUH MD on Jan 25 2024 11:00AM EST Thank you for allowing us to participate in the care of your patient. Should there be any questions regarding this interpretation, please call [phone]. If you are unable to reach us at the number above, please feel free to contact [facility] Hospital[facility] at [phone].DIVISION OF RADIOLOGY* * *Final Report* * * DATE OF EXAM: Jan 25 2024 10:16AM [facility] 0530 - CT ABD/PEL W IVCON / [...] was performed concurrently and is dictated separately. Punch Card Operator (topogram) images: Unremarkable. DIVISION OF RADIOLOGYProvider, [facility] Imaging Datto - 01/25/2024 * * *Final Report* * * DATE OF EXAM: Jan 25 2024 10:16AM [facility] 0530 - CT ABD/PEL W IVCON / [...] was performed concurrently and is dictated separately. Punch Card Operator (topogram) images: Unremarkable. IMPRESSION IMPRESSION: No metastatic [...] any questions regarding this interpretation, please call [phone]. If you are unable to reach us at the number above, please feel free to contact [facility] eRadiology at [phone]. [facility] CenterCT CHEST W IVCONon 77-55-2727YU CHEST W IVCONNormalBarberton Citizens HospitalCT Chest W contrast Landy 74-76-4693NYNDXVDCOU: Decreased size of the left lower lobe [...] any questions regarding this interpretation, please call [phone]. If you are unable to reach us at the number above, please feel free to contact [facility] eRadiology at [phone].DIVISION OF RADIOLOGY* * *Final Report* * * DATE OF EXAM: Jan 25 2024 10:16AM [facility] 0539 - CT CHEST W [...] was performed concurrently and is dictated separately. Punch Card Operator (topogram) images: Unremarkable. DIVISION OF RADIOLOGYProvider, [facility] Imaging Datto - 01/25/2024 * * *Final Report* * * DATE OF EXAM: Jan 25 2024 10:16AM [facility] 0539 - CT CHEST W [...] was performed concurrently and is dictated separately. Punch Card Operator (topogram) images: Unremarkable. IMPRESSION IMPRESSION: Decreased size [...] any questions regarding this interpretation, please call [phone]. If you are unable to reach us at the number above, please feel free to contact [facility] eRadiology at [phone]. [facility]* * *Final Report* * * DATE OF EXAM: Jan 25 2024 10:16AM [facility] 0539 - CT CHEST W [...] was performed concurrently and is dictated separately. Punch Card Operator (topogram) images: Unremarkable. IMPRESSION: Decreased size of [...] any questions regarding this interpretation, please call [phone]. If you are unable to reach us at the number above, please feel free to contact [facility] Hospital[facility] at [phone]. [id number]^AGFA_IDC^SI^ACNCCFRadiology, Radiologist, - 01/25/2024 * * *Final Report* * * DATE OF EXAM: Jan 25 2024 10:16AM [facility] 0539 - CT CHEST W [...] was performed concurrently and is dictated separately. Punch Card Operator (topogram) images: Unremarkable. IMPRESSION: Decreased size of [...] any questions regarding this interpretation, please call [phone]. If you are unable to reach us at the number above, please feel free to contact [facility] eRadiology at [phone]. [id number]^AGFA_IDC^SI^ACN NOMS HealthcareComprehensive metabolic 2000 panelOrdered By: Delilah Zaldivar on 19-01-1987Xqkxkpi [Mass/Vol]4.1 g/dL3.9 - 4.9 g/dLMarengo ClinicALP [Catalytic activity/Vol]77 U/L38 - 113 U/LCleveland ClinicALT [Catalytic activity/Vol]18 U/L10 - 54 U/LCleveland ClinicAnion gap [Moles/Vol]13 mmol/L8 - 15 mmol/L [facility] CenterAST [Catalytic activity/Vol]22 U/L14 - 40 U/LCleveland [facility] Bilirubin [Mass/Vol]0.2 mg/dL0.2 - 1.3 mg/dLCincinnati Va Medical CenterCalcium [Mass/Vol] 9.3 mg/dL8.5 - 10.2 mg/dLCincinnati Va Medical CenterChloride [Moles/Vol]98 mmol/L98 - 107 mmol/LCleveland ClinicCO2 [Moles/Vol]31 mmol/LHigh22 - 30 mmol/LCleveland [facility] Creatinine [Mass/Vol]0.72 mg/dLLow0.73 - 1.22 mg/dLCincinnati Va Medical CenterGFR/1.73 sq M.predicted among non-blacks MDRD (S/P/Bld) [Vol rate/Area]100 mL/min/{1.73_m2}- PINFCOhio Valley Hospital on above:Estimated Glomerular Filtration Rate (eGFR) is calculated using the 202 CKD-EPI creatinine equation. This equation utilizes serum creatinine, sex, and age as parameters. The creatinine assay has traceable calibration to isotope dilution-mass spectrometry. Refer to KDIGO guidelines for clinical interpretation. In patients with unstable renal function, e.g. those with acute kidney injury, the eGFRmay not accurately reflect actual GFR.Glucose [Mass/Vol]162 mg/vZTajs40 - 99 mg/dLLutheran Hospital on above:The [place] Diabetes Association (ADA) provides guidance for cutoff [...] Standards of Medical Care in Diabetes 2016, [place] Diabetes Association. Diabetes Care. 2016.39(Suppl 1). Interpretation and review of laboratory resultsAbnormalCleveland ClinicPotassium [Moles/Vol]3.2 mmol/LLow3.7 - 5.1 mmol/LCleveland ClinicProtein [Mass/Vol]6.2 g/dLLow6.3 - 8.0 g/dLMercy Health Kings Mills Hospitalodium [Moles/Vol]142 mmol/L136 - 144 mmol/LCleveland ClinicUrea nitrogen [Mass/Vol]14 mg/dL9 - 24 mg/dLCrystal Clinic Orthopedic CenterComprehensive metabolic 2000 panelon 15-06-4732Zeymgzy [Mass/Vol]4.1 g/dLNormal3.9-4.9CFulton County [facility] Center on above:Order Comment: Specimen Type: BLOOD SPECIMENOrdering Facility: [facility] Address:[address] [place], [place] [address]Performed By: #### 15283- 8 ####[facility] [id number] [place] [address]RPL [Catalytic activity/Vol]77 U/BUsqqfw73-849IccnswesvUC [facility] on above:Order Comment: Specimen Type: BLOOD SPECIMENOrdering Facility: [facility] Address:[address] [place], [place] [address]Performed By: #### 46637-6 ####[facility] [id number] [place] [address]TIL [Catalytic activity/Vol]18 U/ZSpjsjv10-68XphpiaafhUC [facility] on above:Order Comment: Specimen Type: BLOOD SPECIMENOrdering Facility: [facility] Address:[address] [place], [place] [address]Performed By: #### 88807- 8 ####[facility] [id number] [place] [facility]TONRE[facility] [place]TESSAINCL[place], [place] [address]Whgzl gap [Moles/Vol]13 mmol/LNormal8-15[facility] on above:Order Comment: Specimen Type: BLOOD SPECIMENOrdering Facility: [facility] Address:[address] [place], [place] [address]Performed By: #### 20522-0 ####[facility] [id number] [place] [address]YDP [Catalytic activity/Vol]22 U/QShdjdu61-55AtmzgqqsnUC [facility] on above:Order Comment: Specimen Type: BLOOD SPECIMENOrdering Facility: [facility] Address:[address] [place], [place] [address]Performed By: #### 36127-2 ####[facility] [id number] [place] BANKSREUNION REHABILITATION HOS[facility] [place] [address] Bilirubin [Mass/Vol]0.2 mg/dLNormal0.2-1.3CFulton County Health Center on above:Order Comment: Specimen Type: BLOOD SPECIMENOrdering Facility: [facility] Address:[address] [place], [place] [address]Performed By: #### 43534-4 ####[facility] [id number] [place], [place] [address]Wibbdbc [Mass/Vol]9.3 mg/dLNormal8.5-10.2CFulton County [facility] on above:Order Comment: Specimen Type: BLOOD SPECIMENOrdering Facility: [facility] Address:[address] [place], [place] [address]Performed By: #### 05884-3 ####[facility] [id number] [place], [place] [address]Xadxjvlm [Moles/Vol]98 mmol/BBpzmiu00-456FzgahbsodUC [facility] on above:Order Comment: Specimen Type: BLOOD SPECIMENOrdering Facility: [facility] Address:[address] [place], [place] [address]Performed By: #### [id number]- [id number] ####[facility] [id number] [place], [place] [address]AL9 [Moles/Vol]31 mmol/EHlfe95-01IofqsmbibUC [facility] on above:Order Comment: Specimen Type: BLOOD SPECIMENOrdering Facility: [facility] Address:[address] [place], [place] [address]Performed By: #### 51591-5 ####[facility] [id number] [place], [place] [address]Adgttskqnc [Mass/Vol]0.72 mg/dL Low0.73-1.22[facility] on above:Order Comment: Specimen Type: BLOOD SPECIMENOrdering Facility: [facility] Address:[address] [place], [place] [address]Performed By: #### 19890-0 ####[facility] [id number] [place] [address] Creatinine and Glomerular filtration rate.predicted panel (S/P/Bld)100 mL/min/1.73m???Normal>=60[facility] on above:Order Comment: Specimen Type: BLOOD SPECIMENOrdering Facility: [facility] Address:[address] [place], [place] [address]Vpobxt Comment: Estimated Glomerular Filtration Rate (eGFR) is [...] not accurately reflect actual GFR.Performed By: #### 49914-3 ####[facility] [id number] [place], [place] [address]Snhjszo [Mass/Vol]162 mg/kEOcwt28-00NujabpiuqUC [facility] on above:Order Comment: Specimen Type: BLOOD SPECIMENOrdering Facility: [facility] Address:[address] [place], [place] [address]Result Comment: The [place] Diabetes Association (ADA) provides guidance for cutoff [...] Standards of Medical Care in Diabetes 2016, [place] [employer]. Diabetes Care. 2016.39(Suppl 1).Performed By: #### 37467-5 ####[facility] [id number] [place], [place] [address]Cukqvczpq [Moles/Vol]3.2 mmol/LLow3.7-5.1CFulton County Health Center on above:Order Comment: Specimen Type: BLOOD SPECIMENOrdering Facility: [facility] Address:[address] [place], [place] [address]Performed By: #### 51229-0 ####[facility] [id number] [place], [place] [address]Mxiawuh [Mass/Vol]6.2 g/dLLow 6.3-8.0[facility] on above:Order Comment: Specimen Type: BLOOD SPECIMENOrdering Facility: [facility] Address:[address] [place], [place] [address]Performed By: #### 88036-4 ####[facility] [id number] [place], [place] [address]Aqcrqe [Moles/Vol]142 mmol/EFccpur170-181SxkqglntbUC [facility] on above: Order Comment: Specimen Type: BLOOD SPECIMENOrdering Facility: [facility] Address:[address] [place], [place] [address]Performed By: #### 49148- 8 ####[facility] [id number] [place], [place] [address]Fewx nitrogen [Mass/Vol]14 mg/dLNormal9-24[facility] on above:Order Comment: Specimen Type: BLOOD SPECIMENOrdering Facility: [facility] Address:[address] [place], [place] [address]Performed By: #### 63193-8 ####[facility] [id number] [place], [place] [address]Wjecxwcmyc - Hematology and Cell countson 81-43-6951Demowimff/100 WBC (Bld)0.3 %[facility] CenterErythrocyte distribution width (RBC) [Ratio]15.7 %High11.5 - 15.0 % [facility] CenterHematocrit (Bld) [Volume fraction]30.2 %Low39.0 - 51.0 % [facility] CenterHemoglobin (Bld) [Mass/Vol]10.4 g/dLLow13.0 - 17.0 g/dLChillicothe Hospital (RBC) [Entitic mass]29.7 pg26.0 - 34.0 pgCleveland ClinicMCHC (RBC) [Mass/Vol]34.4 g/dL30.5 - 36.0 g/dLHolzer Health SystemV (RBC) [Entitic vol]86.3 fL80.0 - 100.0 fLCleveland Lake Region HospitalNeutrophils/100 WBC (Bld)24.4 %[facility] No Panel InformationOrdered By: Ccf Provider on 27-56-6042Ehbaclzub ClinicNo Panel Informationon 41-05-9343Goxpxyzhfxzyej and review of laboratory results AbnormalCrystal Clinic Orthopedic CenterRadiology Study observation (narrative) [facility] CenterRadiology Study observation (narrative)NOM HealthcareBasic metabolic 1998 panelon 75-24-4693Hviovlf [Mass/Vol]9.3 mg/dL8.6 - 10.3 mg/dLNOMS HealthcareChloride [Moles/Vol]98 mmol/L98 - 110 mmol/LNOMS HealthcareCO2 [Moles/Vol]34 mmol/LHigh20 - 32 mmol/LNOMS HealthcareCreatinine [Mass/Vol]0.81 mg/dL0.70 - 1.35 mg/dLNOMS HealthcareGFR/1.73 sq M.predicted among non-blacks MDRD (S/P/Bld) [Vol rate/Area]96 mL/min/{1.73_m2}> OR = 60 mL/min/1.91t4GUGD HealthcareGlucose [Mass/Vol]134 mg/qQFrgx11 - 99 mg/dLNOMS HealthcareComment on above: Fasting reference interval For someone without known diabetes, a glucose value >125 mg/dL indicates that they may have diabetes and this should be confirmed with a follow-up test. Interpretation and review of laboratory resultsAbnormalNOMS HealthcarePotassium [Moles/Vol]3.6 mmol/L3.5 - 5.3 mmol/LNOMS HealthcareSodium [Moles/Vol]141 mmol/L 135 - 146 mmol/LNOMS HealthcareUrea nitrogen [Mass/Vol]16 mg/dL7 - 25 mg/dLNOMS HealthcareUrea nitrogen/Creatinine [Mass ratio]SEE NOTE:NOMS HealthcareComment on above:Not Reported: BUN and Creatinine are within reference range. Performing Organization Information Site ID: QPT Name: [employer] [facility] Address: [address] [place] [address], [address] [place] [id number] Director: Rc Mallory MDErlanger [facility] metabolic 1998 panelOrdered By: Lana Alfred on 59-89-2391LKYI HealthcareCNPNon 01-18-2024 CNPNNormalBarberton Citizens HospitalCNCOon 95-58-4600TMQBRtsmay TextNormal [facility] Citizens HospitalCNPNon 51-44-0981KALIPdeunnJanaqipik Clinic [facility] CNPNon 48-51-6803ZPKEGdomuvJeuqsileq Clinic ClevelandCBC W Auto Differential panel (Bld)on 03-55-6774Mmwgqzutp (Bld) [#/Vol]0.06 10*3/uLNormal<0.11CFulton County Health Center on above:Order Comment: Specimen Type: BLOOD SPECIMENOrdering Facility: [facility] Address:[address] [place], [place] [address]Performed By: #### 50053-8 ####[facility] [id number] [place], [place] [address]Wwpntqjqg/100 WBC (Bld)0.7 %NormalUC [facility] on above:Order Comment: Specimen Type: BLOOD SPECIMENOrdering Facility: [facility] Address:[address] [place], [place] [address]Performed By: #### 01217-9 ####[facility] [id number] [place], [place] [address]Hhivuuidhukw cell count method Nom (Bld)AutoNormal [facility] on above:Order Comment: Specimen Type: BLOOD SPECIMENOrdering Facility: [facility] Address:[address] [place], [place] [address]Performed By: #### 99565-9 ####[facility] [id number] [place], [place] [address]Rgzibcdvutl (Bld) [#/Vol]2.84 10*3/uLHigh<0.46[facility] on above: Order Comment: Specimen Type: BLOOD SPECIMENOrdering Facility: [facility] Address:[address] [place], [place] [address]Performed By: #### 97951- 8 ####[facility] [id number] [place], [place] [address]Jxbulccevif/100 WBC (Bld)34.5 %NormalUC [facility] on above:Order Comment: Specimen Type: BLOOD SPECIMENOrdering Facility: [facility] Address:[address] [place], [place] [address]Performed By: #### 45909-1 ####[facility] [id number] [place], [place] [address]Jruwkialnpg distribution width (RBC) [Ratio]15.3 %High11.5-15.0[facility] on above:Order Comment: Specimen Type: BLOOD SPECIMENOrdering Facility: [facility] Address:[address] [place], [place] [address]Performed By: #### 96312- 8 ####[facility] [id number] [place], [place] [address]Uufkctjczb (Bld) [Volume fraction]31.0 %Low39.0-51.0 [facility] on above:Order Comment: Specimen Type: BLOOD SPECIMENOrdering Facility: [facility] Address:[address] [place], [place] [address]Performed By: #### 08416-6 ####[facility] [id number] [place], [place] [address]Blnjbabcoa (Bld) [Mass/Vol]10.4 g/dLLow13.0-17.0[facility] on above:Order Comment: Specimen Type: BLOOD SPECIMENOrdering Facility: [facility] Address:[address] [place], [place] [address]Performed By: #### 58477- 8 ####[facility] [id number] [place], [place] [address]Emoiuxqk granulocytes (Bld) [#/Vol]10*3/uLNormal<0.10 [facility] on above:Order Comment: Specimen Type: BLOOD SPECIMENOrdering Facility: [facility] Address:[address] [place], [place] [address]Performed By: #### 96979-0 ####[facility] [id number] [place], [place] [address]Jbygbtem granulocytes/100 WBC (Bld)0.2 %NormalUC [facility] Hospital on above: Order Comment: Specimen Type: BLOOD SPECIMENOrdering Facility: [facility] Address:[address] [place], [place] [address]Performed By: #### 74529- 8 ####[facility] [id number] [place], [place] [address]Rssveajxwuc (Bld) [#/Vol]2.26 10*3/uLNormal1.00-4.00 [facility] on above:Order Comment: Specimen Type: BLOOD SPECIMENOrdering Facility: [facility] Address:[address] [place], [place] [address]Performed By: #### 21571-9 ####[facility] [id number] [place], [place] [address]Lccucozhhaj/100 WBC (Bld)27.4 %NormalUC [facility] on above:Order Comment: Specimen Type: BLOOD SPECIMENOrdering Facility: [facility] Address:[address] [place], [place] [address]Performed By: #### 10402-3 ####[facility] [id number] [place], [place] [address]OBV (RBC) [Entitic mass]29.4 mrWopgpn85.0-34.0[facility] on above:Order Comment: Specimen Type: BLOOD SPECIMENOrdering Facility: [facility] Address:[address] [place], [place] [address]Performed By: #### 71489-0 ####[facility] [id number] [place], [place] [address]COHH (RBC) [Mass/Vol]33.5 g/jMWwxtvs42.5-36.0[facility] on above: Order Comment: Specimen Type: BLOOD SPECIMENOrdering Facility: [facility] Address:[address] [place], [place] [address]Performed By: #### 35052- 8 ####[facility] [id number] [place], [place] [address]KBR (RBC) [Entitic vol]87.6 bVSsfhdv18.0-100.0[facility] on above:Order Comment: Specimen Type: BLOOD SPECIMENOrdering Facility: [facility] Address:[address] [place], [place] [address]Performed By: #### 91484-2 ####[facility] [id number] [place], [place] [address]Ytueosskf (Bld) [#/Vol]0.75 10*3/uLNormal<0.87[facility] on above:Order Comment: Specimen Type: BLOOD SPECIMENOrdering Facility: [facility] Address:[address] [place], [place] [address]Performed By: #### 83841- 8 ####[facility] [id number] [place], [place] [address]Zogvhiory/100 WBC (Bld)9.1 %NormalUC [facility] on above:Order Comment: Specimen Type: BLOOD SPECIMENOrdering Facility: [facility] Address:[address] [place], [place] [address]Performed By: #### 81631-1 ####[facility] [id number] [place], [place] [address]Tcwgbkjlilg (Bld) [#/Vol]2.31 10*3/uLNormal1.45-7.50[facility] on above:Order Comment: Specimen Type: BLOOD SPECIMENOrdering Facility: [facility] Address:[address] [place], [place] [address]Performed By: #### 66871-4 ####[facility] [id number] [place], [place] [address]Klugeptxeue/100 WBC (Bld)28.1 %NormalUC [facility] on above:Order Comment: Specimen Type: BLOOD SPECIMENOrdering Facility: [facility] Address:[address] [place], [place] [address]Performed By: #### 14609-5 ####[facility] [id number] [place], [place] [address]Ghxdevfzo RBC (Bld) [#/Vol] 10*3/uLNormal<0.01[facility] on above:Order Comment: Specimen Type: BLOOD SPECIMENOrdering Facility: [facility] Address:[address] [place], [place] [address]Performed By: #### 76958-6 ####[facility] [id number] [place], [place] [address]Eacfljviy RBC/100 WBC (Bld) [Ratio]0.0 /100 WBCNormal [facility] on above:Order Comment: Specimen Type: BLOOD SPECIMENOrdering Facility: [facility] Address:[address] [place], [place] [address]Performed By: #### 30164-0 ####[facility] [id number] [place], [place] [address]Ynjlqitm mean volume (Bld) [Entitic vol]9.1 fLNormal9.0-12.7CFulton County Health Center on above:Order Comment: Specimen Type: BLOOD SPECIMENOrdering Facility: [facility] Address:[address] [place], [place] [address] Performed By: #### 07348-5 ####[facility] [id number] [place], [place] [address]Sypjueeey (Bld) [#/Vol]347 10*3/vAUbkvst466-534TuxdiirraUC [facility] on above:Order Comment: Specimen Type: BLOOD SPECIMENOrdering Facility: [facility] Address:[address] [place], [place] [address]Performed By: #### 60772-8 ####[facility] [id number] [place], [place] [address]OSK (Bld) [#/Vol]3.54 10*6/uLLow4.20-6.00[facility] on above:Order Comment: Specimen Type: BLOOD SPECIMENOrdering Facility: [facility] Address:[address] [place], [place] [address]Performed By: #### 78098-9 ####[facility] [id number] [place], [place] [address]MMO (Bld) [#/Vol]8.24 10*3/uL Normal3.70-11.00[facility] on above:Order Comment: Specimen Type: BLOOD SPECIMENOrdering Facility: [facility] Address:[address] [place], [place] [address]Performed By: #### 84658-8 ####[facility] [id number] [place], [place] [address]KCN CBC W AUTO DIFF BLDon 38-75-7830Mhztvceok/100 WBC (Bld)0.7 %NOMS HealthcareCCF BASOPHILS # BLD AUTO0.06NINFNOCarondelet HealthF DIFFERENTIAL METHOD BLDAutoNOMS HealthcareF EOSINOPHIL # BLD AUTO2.84HighNINF NOMS HealthcareF LYMPHOCYTES # BLD AUTO2.26NOIN HealthcareCCF MONOCYTES # BLD AUTO0.75NINFNOMercy Hospital St. John'sCCF NEUTROPHILS # BLD AUTO2.31NOIN HealthcareCCF NRBC # BLD AUTO<0.01NINFAlvin J. Siteman Cancer Center NRBC/100 WBC BLD-RTO0/100 WBCAlvin J. Siteman Cancer Center PLATELET # BLD JUFJ101FFFAAlvin J. Siteman Cancer Center PMV BLD AUTO9.1 fL9.0 - 12.7 fLAlvin J. Siteman Cancer Center WBC # BLD AUTO8.24[facility] CenterEosinophils/100 WBC (Bld)34.5 %[facility] CenterErythrocyte distribution width (RBC) [Ratio]15.3 %High 11.5 - 15.0 %[facility] CenterHematocrit (Bld) [Volume fraction]31 %Low39.0 - 51.0 %[facility] CenterHemoglobin (Bld) [Mass/Vol]10.4 g/dLLow13.0 - 17.0 g/dLGolden Valley Memorial Hospital GRANULOCYTES # BLD AUTO<0.03NITennessee Hospitals at Curlie GRANULOCYTES/LEUK NFR BLD AUTO0.2 %[facility] CenterInterpretation and review of laboratory resultsAbnormEinstein Medical Center MontgomeryLymphocytes/100 WBC (Bld)27.4 %[facility] HospitalH (RBC) [Entitic mass]29.4 pg26.0 - 34.0 pgWashington County Memorial HospitalHC (RBC) [Mass/Vol]33.5 g/dL30.5 - 36.0 g/dLWashington County Memorial HospitalV (RBC) [Entitic vol]87.6 fL 80.0 - 100.0 fLSt. Louis VA Medical CenterMonocytes/100 WBC (Bld)9.1 %[facility] Neutrophils/100 WBC (Bld)28.1 %[facility] CenterRBC (Bld) [#/Vol]3.54 10*6/uLLow 4.20 - 6.00 m/uLSt. Louis VA Medical CenterSpecimen Type: BLOOD SPECIMEN Order[facility] Address: [address] [place], [place] [address] Original Ordering Provider: LO SERRATOSt. Louis VA Medical CenterCNOVSPon 87-89-9849MDEALEWikvcrDbiemlgoz [facility] Medical Centerprehensive metabolic 2000 panelon 07-59-3594Czkqkdl [Mass/Vol]4.2 g/dLNormal3.9-4.9CFulton County Health Center on above:Order Comment: Specimen Type: BLOOD SPECIMENOrdering Facility: [facility] Address:[address] [place], [place] [address]Performed By: #### 38455-4 ####[facility] SYSTEMSMARIBEL [facility] LABCLIA [id number] [facility] BANKSREUNION REHABIL[facility] [place] [address]FUM [Catalytic activity/Vol]72 U/XTapnxx08-770JaxojysdaUC [facility] on above:Order Comment: Specimen Type: BLOOD SPECIMENOrdering Facility: [facility] Address:[address] [place], [place] [address]Performed By: #### 36709-5 ####[facility] [id number] ERNIE JEROME COTTONREUNION REHABILITATION HOSPITAL PH[place]IXTANY[place], [place] [address]MEQ [Catalytic activity/Vol]26 U/ARczjik71-77SadjoqmjqUC [facility] on above:Order Comment: Specimen Type: BLOOD SPECIMENOrdering Facility: [facility] Address:[address] [place], [place] [address]Performed By: #### 76833-4 ####[facility] [id number] [place], [place] [address]Pisfb gap [Moles/Vol]11 mmol/LNormal8-15[facility] on above:Order Comment: Specimen Type: BLOOD SPECIMENOrdering Facility: [facility] Address:[address] [place], [place] [address]Performed By: #### 45848- 8 ####[facility] [id number] ERNIE JEROME COTTONREUNION REHABILITATION HOSPITAL PHOENIXTESSAINCLINE [place], [place] [address]WZL [Catalytic activity/Vol]20 U/KTyfdvv18-54WgzzlqorgUC [facility] on above:Order Comment: Specimen Type: BLOOD SPECIMENOrdering Facility: [facility] Address:[address] [place], [place] [address]Performed By: #### 10516-9 ####[facility] [id number] [place], [place] [address]Whakcrikw [Mass/Vol]0.2 mg/dLNormal0.2-1.3CFulton County Health Center on above:Order Comment: Specimen Type: BLOOD SPECIMENOrdering Facility: [facility] Address:[address] [place], [place] [address]Performed By: #### 93454- 8 ####[facility] [id number] [facility] [place], [place] [address]Syvwzvm [Mass/Vol]8.8 mg/dLNormal8.5-10.2CFulton County Health Center on above:Order Comment: Specimen Type: BLOOD SPECIMENOrdering Facility: [facility] Address:[address] [place], [place] [address]Performed By: #### 77090-0 ####[facility] [id number] [place], [place] [address]Hdeugcgo [Moles/Vol]98 mmol/L Kygpjk83-443KqhmuomcqUC [facility] on above:Order Comment: Specimen Type: BLOOD SPECIMENOrdering Facility: [facility] Address:[address] [place], [place] [address]Performed By: #### 81213-1 ####[facility] [id number] [place] [address] CO2 [Moles/Vol]30 mmol/KTdnqla84-88DuarnacnmUC [facility] on above: Order Comment: Specimen Type: BLOOD SPECIMENOrdering Facility: [facility] Address:[address] [place], [place] [address]Performed By: #### 96429- 8 ####[facility] [id number] [place], [place] [address]Lkrwearpro [Mass/Vol]0.72 mg/dLLow0.73-1.22[facility] above:Order Comment: Specimen Type: BLOOD SPECIMENOrdering Facility: [facility] Address:[address] [place], [place] [address]Performed By: #### 39182-9 ####[facility] [id number] [place], [place] [address]Xndeowokvm and Glomerular filtration rate.predicted panel (S/P/Bld)100 mL/min/1.73m???Normal >=60[facility] above:Order Comment: Specimen Type: BLOOD SPECIMENOrdering Facility: [facility] Address:[address] [place], [place] [address]Result Comment: Estimated Glomerular Filtration Rate (eGFR) is calculated using the 2020 CKD-EPI creatinine equation. This equation utilizes serum creatinine, sex, and age as parameters. The creatinine assay has traceable calibration to isotope dilution-mass spectrometry. Refer to KDIGO guidelines for clinical interpretation. In patients with unstable renal function, e.g. those with acute kidney injury, the eGFR may not accurately reflect actual GFR.Performed By: #### 63778-5 ####[facility] [id number] [place], [place] [address]Ovgzoej [Mass/Vol]139 mg/sFDzvr99-51SptpehlbgUC [facility] on above:Order Comment: Specimen Type: BLOOD SPECIMENOrdering Facility: [facility] Address:[address] [place] [address] Comment: The [place] Diabetes Association (ADA) provides guidance for cutoff [...] Standards of Medical Care in Diabetes 2016, [place] [employer]. Diabetes Care. 2016.39(Suppl 1).Performed By: #### 99297-2 ####[facility] [id number] [place], [place] [address]Svrleeigu [Moles/Vol]3.3 mmol/LLow3.7-5.1CFulton County Health Center on above:Order Comment: Specimen Type: BLOOD SPECIMENOrdering Facility: [facility] Address:[address] [place], [place] [address]Performed By: #### 16244- 8 ####[facility] [id number] [place], [place] [address]Rowsxzu [Mass/Vol]6.4 g/dLNormal6.3-8.0[facility]:Order Comment: Specimen Type: BLOOD SPECIMENOrdering Facility: [facility] Address:[address] [place], [place] [address]Performed By: #### 29008-8 ####[facility] [id number] [place], [place] [address]Merzru [Moles/Vol]139 mmol/L Eqyyox997-598MqutpqkvkUC [facility] on above:Order Comment: Specimen Type: BLOOD SPECIMENOrdering Facility: [facility] Address:[address] [place], [place] [address]Performed By: #### 80929-5 ####[facility] [id number] [place] [address] Urea nitrogen [Mass/Vol]13 mg/dLNormal9-24[facility] above:Order Comment: Specimen Type: BLOOD SPECIMENOrdering Facility: [facility] Address:[address] [place], [place] [address]Performed By: #### 63088-4 ####[facility] [id number] [place], [place] [address]Pcbrhp SerPl-Rhodancon 53-81-9024Uxanymdf [Mass/Vol]7.3 ug/dLNormal4.8-19.5CFulton County Health Center on above:Order Comment: Specimen Type: BLOOD SPECIMENOrdering Facility: [facility] Address:[address] [place] [address]Jpigno Comment: Provided reference range is from 6-10 AM sample collection time.Cortisol Reference Range: 6-10 AM = 4.8-19.5 ug/dL, 4-8 PM = 2.5-11.9 ug/dLPerformed By: #### 3016-3, 2143-6 ####[facility] LABCLIA [id number] [address] STATES OF PYIQBAKOfQ9l (Bld)on 36-92-7938Yurhrye glucose Estimated from glycated hemoglobin (Bld) [Mass/Vol]123 mg/dLNormal [facility] on above:Order Comment: Specimen Type: BLOOD SPECIMENOrdering Facility: [facility] Address:[address] [place], [place] [address]Result Comment: eAG: (Estimated average glucose) is a calculated value from HgbA1c and is investment representative of the average blood glucose level in the last 2-3 month period.Performed By: #### 22044-2 ####[facility] LABIA [id number] [place] [address] [place] WQRAZDSZbH3k (Bld) [Mass fraction]5.9 %High4.3-5.6 [facility] on above:Order Comment: Specimen Type: BLOOD SPECIMENOrdering Facility: [facility] Address:[address] [place], [place] [id number] Comment: [place] [employer] guidelines indicate that patients with HgbA1c in the range 5.7-6.4% are at increased risk for development of diabetes, and intervention by lifestyle modification may be beneficial. HgbA1c greater or equal to 6.5% is considered diagnostic of diabetes.Performed By: #### 32580-3 ####[facility] LABCLIA [id number] [place] [id number] [place] TSH SerPl-aCncon [id number] Qn3.050 m[IU]/LNormal0.270-4.200[facility] ClevelandComment on above:Order Comment: Specimen Type: BLOOD SPECIMENOrdering Facility: [facility] Address:[address] [place], [place] [address]Performed By: #### 3016-3, 2143-6 ####[facility] LABCLIA [id number] ANGÉLICA WALKER [id number] STATES OF [facility] CNOVon [phone] Clinic ClevelandCNPNon 41-90-7570SWRBTmlnyi [facility] CBC W AUTO DIFF BLDon 88-00-6036Fojvofkzp/100 WBC (Bld)0.7 %[facility] BASOPHILS # BLD AUTO0.07NIBaptist [facility] for [facility] DIFFERENTIAL METHOD BLDAutoNOMSaint [facility] EOSINOPHIL # BLD AUTO1.51HighNISkyline Medical [facility] LYMPHOCYTES # BLD AUTO2.81[facility] MONOCYTES # BLD AUTO1.00HighNIBaptist Memorial Hospital for Women NEUTROPHILS # BLD AUTO4.33[facility] NRBC # BLD AUTO<0.01[facility]IB[facility] NRBC/100 WBC BLD-RTO0.0/100 WBCAlvin J. [facility] PLATELET # BLD [id number] J. [facility] Center PMV BLD AUTO8.5 fLLow9.0 - 12.7 fLAlvin J. Siteman Cancer Center WBC # BLD AUTO9.83NOMercy Hospital St. John'sEosinophils/100 WBC (Bld)15.4 %[facility] CenterErythrocyte distribution width (RBC) [Ratio]13.6 % 11.5 - 15.0 %[facility] CenterHematocrit (Bld) [Volume fraction]31.3 %Low39.0 - 51.0 %[facility] CenterHemoglobin (Bld) [Mass/Vol]10.6 g/dLLow13.0 - 17.0 g/dLGolden Valley Memorial Hospital GRANULOCYTES # BLD AUTO0.11[facility] GRANULOCYTES/LEUK NFR BLD AUTO1.1 %[facility] CenterInterpretation and review of laboratory resultsAbnormalSt. Louis VA Medical CenterLymphocytes/100 WBC (Bld)28.6 %[facility] HospitalH (RBC) [Entitic mass]29.5 pg26.0 - 34.0 pgWashington County Memorial HospitalHC (RBC) [Mass/Vol]33.9 g/dL30.5 - 36.0 g/dLWashington County Memorial HospitalV (RBC) [Entitic vol]87.2 fL 80.0 - 100.0 fLSt. Louis VA Medical CenterMonocytes/100 WBC (Bld)10.2 %[facility] Neutrophils/100 WBC (Bld)44.0 %[facility] CenterRBC (Bld) [#/Vol]3.59 10*6/uLLow 4.20 - 6.00 m/uLSt. Louis VA Medical CenterSpecimen Type: BLOOD SPECIMEN Ordering Facility: [facility] Address: [address] [place] [address] Original Ordering Provider: LO SERRATOAlvin J. S[facility] CBC W AUTO DIFF BLDon [id number]/100 WBC (Bld)0.4 %[facility] BASOPHILS # BLD AUTO0.03[facility]IBapt[facility] DIFFERENTIAL METHOD BLDAutoNOMSaint [facility]'s [facility] EOSINOPHIL # BLD AUTO0.30[facility]IB[facility] LYMPHOCYTES # BLD AUTO1.65[facility] MONOCYTES # BLD AUTO0.23NIBaptist [facility] NEUTROPHILS # BLD AUTO4.46[facility] NRBC # BLD AUTO<0.01NIBapt[facility] NRBC/100 WBC BLD-RTO0.0/100 WBCAlvin J. S[facility] PLATELET # BLD [id number] [facility]. [facility] PMV BLD AUTO9.8 fL9.0 - 12.7 fLAlvin J. Siteman Cancer Center WBC # BLD AUTO6.69[facility] CenterEosinophils/100 WBC (Bld)4.5 %[facility] Erythrocyte distribution width (RBC) [Ratio]13.0 %11.5 - 15.0 %[facility] Hematocrit (Bld) [Volume fraction]30.4 %Low39.0 - 51.0 %[facility] Hemoglobin (Bld) [Mass/Vol]10.6 g/dLLow13.0 - 17.0 g/dLGolden Valley Memorial Hospital GRANULOCYTES # BLD AUTO<0.03[facility]ITennessee [facility] GRANULOCYTES/LEUK NFR BLD AUTO0.3 %[facility] CenterInterpretation and review of laboratory resultsAbnormal [facility] CenterLymphocytes/100 WBC (Bld)24.7 %[facility] HospitalH (RBC) [Entitic mass]29.9 pg26.0 - 34.0 pgWashington County Memorial HospitalHC (RBC) [Mass/Vol]34.9 g/dL30.5 - 36.0 g/dLWashington County Memorial HospitalV (RBC) [Entitic vol]85.9 fL80.0 - 100.0 fLSt. Louis VA Medical CenterMonocytes/100 WBC (Bld)3.4 %[facility] CenterNeutrophils/100 WBC (Bld) 66.7 %[facility] CenterRBC (Bld) [#/Vol]3.54 10*6/uLLow4.20 - 6.00 m/uLSt. Louis VA Medical CenterSpecimen Type: BLOOD SPECIMEN Ordering Facility: [facility] Address: [address] [place] [address] Original Ordering Provider: LO SERRATOAlvin J. Sitem[facility] CBC W AUTO DIFF BLDon 30-95-3151Wfkmgpljx/100 WBC (Bld)0.5 %[facility] BASOPHILS # BLD AUTO0.06NIBaptist [facility] DIFFERENTIAL METHOD BLDAutoNOMSaint Luke's [facility] EOSINOPHIL # BLD AUTO0.47[facility] LYMPHOCYTES # BLD AUTO2.79[facility] MONOCYTES # BLD AUTO0.87[facility] NEUTROPHILS # BLD AUTO6.77[facility] NRBC # BLD AUTO<0.01[facility]IBapt[facility] NRBC/100 WBC BLD-RTO0.0/100 WBCAlvin J. Sitem[facility] Center PLATELET # BLD [id number] J. [facility] PMV BLD AUTO9.2 fL9.0 - 12.7 fLAlvin J. Siteman Cancer Center WBC # BLD AUTO11.01HighSt. Louis VA Medical CenterEosinophils/100 WBC (Bld)4.3 %[facility] Erythrocyte distribution width (RBC) [Ratio]13.5 %11.5 - 15.0 %[facility] Hematocrit (Bld) [Volume fraction]35.2 %Low39.0 - 51.0 %[facility] Hemoglobin (Bld) [Mass/Vol]12.0 g/dLLow13.0 - 17.0 g/dLGolden Valley Memorial Hospital GRANULOCYTES # BLD AUTO0.05NINFGolden Valley Memorial Hospital GRANULOCYTES/LEUK NFR BLD AUTO 0.5 %[facility] CenterInterpretation and review of laboratory resultsAbnormalSt. Louis VA Medical CenterLymphocytes/100 WBC (Bld)25.3 %[facility] HospitalH (RBC) [Entitic mass] 29.6 pg26.0 - 34.0 pgWashington County Memorial HospitalHC (RBC) [Mass/Vol]34.1 g/dL30.5 - 36.0 g/dLWashington County Memorial HospitalV (RBC) [Entitic vol]86.7 fL80.0 - 100.0 fLSt. [facility] Medical Center Monocytes/100 WBC (Bld)7.9 %[facility] CenterNeutrophils/100 WBC (Bld)61.5 %[facility] CenterRBC (Bld) [#/Vol]4.06 10*6/uLLow4.20 - 6.00 m/uLSt. [facility] Medical Center Specimen Type: BLOOD SPECIMEN Ordering Facility: [facility] Address: [address] [place] [address] Original Ordering Provider: LO ZARAGOZANorth Knoxville Medical CenterCC CYTOLOGY NON-GYNon [id number] ADEQUACY INTERPRETATIONNOMercy Hospital St. John'sComment on above: A: #1 Limited lymphoid sample #2 Lymphoid sample B: #1 Lymphoid sample #2 Non-diagnostic C: #1-3 Lymphoid sample D: #1-3 Lymphoid sample E: #1 Lymphoid sample #2 Non-diagnostic Dr. Akers / Annabella Gastelum Each letter in the above intra-procedural assessment refers to a unique site. The specific site is indicated in the final diagnosis portion of the report. Each number in this assessment references a discrete evaluation episode. Intra-procedural assessment performed at [facility], [address] [place] [address] [facility] CASE REPORTNOMercy Hospital St. John'sComment on above:Medical Cytology Report Case: [id number] Authorizing Provider: Hugh Craig MD Collected: 11/01/2023 12:29 PM Ordering Location: [facility] Received: 11/01/2023 01:13 PM Endoscopy - ENDO Pathologist: Daily Akers MD Specimens: A) - Lymph Node, Transbronchial, 4R B) - Lymph Node, Transbronchial, Station 7 C) - Lymph Node, Transbronchial, 4L D) - Lymph Node, Transbronchial, 10L E) - Lymph Node, Transbronchial, 11L [facility] CLINICAL HISTORYNOIN HealthcareComment on above:Pre-op diagnosis: Lung nodule [R91.1] Lung cancer [facility] FINAL DIAGNOSISNOMS HealthcareComment on above:A - Lymph Node, Transbronchial, Aspirate/Fine Needle Aspirate [...] Negative for malignant cells. Benign lymphoid sample. The following cell blocks were associated with this case: A1 Cell Block, Alcohol Fixed B1 Cell Block, Alcohol Fixed C1 Cell Block, Alcohol Fixed D1 Cell Block, Alcohol Fixed E1 Cell Block, Alcohol Fixed [facility] FINAL PERFORMING LABNOIN HealthcareComment on above:Technical component, surveillance system monitor screening performed at [facility], [address] [place] [address] CLIA# [id number] Diagnostic interpretation performed at [facility], [address] [place] [address] CLIA# [id number] Puppet Maker: Mihai Vora M.D. [facility] GROSS DESCRIPTIONNOIN HealthcareComment on above:A. Lymph Node, Transbronchial 30 cc clear pink CytoLyt with material. ThinPrep and Cell Block prepared and 4 smears (2 air dried and 2 fixed). B. Lymph Node, Transbronchial 30 cc clear pink CytoLyt with material. ThinPrep and Cell Block prepared and 4 smears (2 air dried and 2 fixed). C. Lymph Node, Transbronchial 30 cc clear light pink CytoLyt with particles. ThinPrep and Cell Block prepared and 6 smears (3 airdried and 3 fixed). D. Lymph Node, Transbronchial 30 cc clear pink CytoLyt with material. ThinPrep and Cell Block prepared and 6 smears (3 air dried and 3 fixed). E. Lymph Node, Transbronchial 30 cc clear pink CytoLyt with material. ThinPrep and Cell Block prepared and 4 smears (2 air dried and 2 fixed). [facility] ORDER COMMENTNOMS HealthcareComment on above:Pre-op diagnosis: Lung nodule [R91.1] Specimen Type: SPECIMEN OBTAINED BY ASPIRATION Ordering Facility: [facility] Address: [address] [place] [address] Original Ordering Provider: HUGH FERNANDEZ [facility] POSTPROC EVALon [id number] POSTPROC EVALHNO ID: [id number] Author: AISHA BRIONES MD Service: Anesthesiology Author Type: Anesthesiologist Type: Anesthesia Postprocedure Evaluation Filed: 11/01/2023 13:14 Note Text: POST ANESTHESIA EVALUATION NOTE : 1955 Procedure Summary Date: 11/01/23 Room / Location: GI02 / GI Anesthesia Start: 1210 Anesthesia Stop: [...] November 01, 2023 TIME: 1:14 PM CSN: [id number] Hospital of [facility] PRE-OPon [id number] PRE-OPHNO ID: [id number] Author: YIMI RODRIGUEZ DO Service: Anesthesiology Author [...] November 01, 2023 TIME: 11:43 AM CSN: [id number] HospitalANES PRE-OPHNO ID: [id number] Author: AISHA BRIONES MD Service: Anesthesiology Author [...] November 01, 2023 TIME: 11:33 AM CSN: [id number] HospitalBRONCHOSCOPYon 11-01-2023 Radiology, Radiologist, MD - 11/01/2023 [facility] Patient Name: Erin Pena Procedure Date: 11/01/2023 11:19 AM Date of : 1955 Admit Type: Outpatient Age: 67 Room: [facility] Gender: Male Attending MD: Hugh Craig MD, [id number] Procedure: Bronchoscopy Indications: Mediastinal staging of confirmed [...] physician, the nurse, the anesthesiologist and the chief deputy coroner in the procedure room. Mental Status Examination: [...] left lower paratracheal region (level 4L), subcarinal medi (more content not included)...[facility] HealthcareRadiology Study observation (narrative)[facility] HealthcareBRONCHOSCOPYOrdered By: Radiologist Radiology on 18-79-2022NCVB [employer] Work Phone: NURSING PROGon [id number] [facility] ID: [id number] Author: EMMA HARVEY RN Service: Nursing Author [...] REFERRAL (RECOMMENDATION): None Electronically Signed By: Emma HarveyH[facility] EDon [id number] EDHNO ID: [id number] Author: SANDRA LEONG RN Service: Nursing Author Type: Registered Nurse [...] REFERRAL (RECOMMENDATION): None Electronically Signed By: Sandra LeongBaystate Medical Center [id number] PROGHNO ID: [id number] Author: TOMMIE MCFADDEN RN Service: Pulmonary Disease [...] Signed By: Tommie Mcfadden RN In Department: [facility] ENDOSCOPY - ENDO Time spent on patient education: 10 minutes.[facility] CT SKULL TO THIGHon [id number] CT SKULL TO THIGHPET CT SKULL TO [...] by Felix Lopez MD on 10/21/2023 1:16 [facility] BI[facility]SY LUNG PERC LTon [id number] BIOPSY LUNG PERC LTIR BIOPSY LUNG PERC [...] by Odette Baptiste MD on 10/05/2023 3:33 PMNDelaware County Hospitalurgical Pathologyon [id number] PathologyNoEast [place] Regional HospitalComment on above:Result Comment: [facility] [address] [place] [address] Surgical Pathology Consultation Amended Report Patient Name:ERIN PENA:1955 (Age: 67)Gender:MTaken:4Reported:10/11/2023hysician(s):Kassidy Villasenor CNP ([phone])Copy To:Miller MILIANession #:[id number]. Rec. #:[id number]: #[id number] Amended Final Pathologic Diagnosis Lung, left lower [...] the case was signed out, an oncology survey data technician, Liliya Santana, notified me that the tumor should be located in left lower lobe. Report Electronically Signed Out rg/4Rbrianne Mendoza MD Interpretation performed at [facility], [address] [facility], [place] [address], License number: [id number]. Clinical History Left upper lobe mass. Gross Description Received in formalin labeled VOLLMAR, left lung biopsy are six zpe-kmznp-ibmz barger delicate needle core segments of soft tissue with adherent hemorrhagic material, from 0.6-1.4 cm in length. The specimens are submitted entirely in cassettes A and B. (2, ns, [id number], m5) [facility]/10/05/2023SSI Specimen(s) Received Left lung core biopsy Fee Codes(s): 1; 98374, 52573, 69948(3)XR CHEST 1 VWon [id number] CHEST 1 VWXR CHEST 1 VW Single view chest History: Status post lung biopsy Comparison: X-ray 10/06/2011 Findings: Single portable view of the chest. Cardiomediastinal silhouette and pulmonary vasculature are within normal limits. Left upper lobe lung mass. Right lung is clear. No pneumothorax. Impression: Left upper lobe lung mass, no definite pneumothorax status post biopsy. Finalized by Enoc Chen on 10/05/2023 3:[address] [facility] COVID-19 PCRon [id number]-CoV-2, NAANot DetectedNormalNot DetectedThe East [place] Regional HospitalComment on above:Result Comment: This nucleic acid amplification test was developed and its performance characteristics determined by [employer]. 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 COMPARISON: None. ACCESSION NUMBER(S): [id number] ORDERING CLINICIAN: MOLLY RAY TECHNIQUE: T2, FLAIR, [...] disease including hypertension and diabetes. Interpreted within [place], [place] Electronically signed by: SHAHANA RAY MD, PHDNoNorth Colorado Medical CenterRENAL FUNCTION PANELon [id number] [Mass/Vol]4.6 g/dLNormal3.4 - 5.0[facility] CenterComment on above:Performed By: #### RENAL #### [facility] [address] [place], [place] [address]Ckevz gap [Moles/Vol]13 mmol/DBlorbu97 - 20[facility] Medical CenterComment on above:Performed By: #### RENAL #### [facility] [address] [place], [place] [address]Uxjssql [Mass/Vol]9.8 mg/dLNormal8.6 - 10.6[facility] Medical CenterComment on above:Performed By: #### RENAL #### [facility] [address] [place], [place] [address]Asqwfauz [Moles/Vol]100 mmol/BKklwlp14 - 107[facility] Medical CenterComment on above:Performed By: #### RENAL #### [facility] [address] [place], [place] [address]Yvsrvobryu [Mass/Vol]0.60 mg/dLNormal0.50 - 1.30[facility] Medical CenterComment on above:Performed By: #### RENAL #### [facility] [address] [place], [place] [address]BBB-UESYQCR AM.>60Normal>60[facility] Medical CenterComment on above:Result Comment: CALCULATIONS OF ESTIMATED GFR ARE PERFORMED USING THE MDRD STUDY EQUATION FOR THE IDMS-TRACEABLE CREATININE METHODS. CLIN CHEM 2007;53:766-72Performed By: #### RENAL #### [facility] [address] [place], [place] [address]LNR-TLG AM.>60Normal>60[facility] Comment on above:Performed By: #### RENAL #### [facility] [address] [place], [place] [address]Mcpunmf [Mass/Vol]118 mg/iMMjue53 - 99[facility] Medical CenterComment on above:Performed By: #### RENAL #### [facility] [address] [place], [place] [address]JNT4 (Bld) [Moles/Vol]30 mmol/ZLeaeut43 - 32[facility] Medical CenterComment on above:Performed By: #### RENAL #### [facility] [address] [place], [place] [address]Gvqkgfwsq [Mass/Vol]3.6 mg/dLNormal2.5 - 4.9[facility] Medical CenterComment on above:Result Comment: The performance characteristics of phosphorus testing in heparinized plasma have been validated by the individual laboratory site where testing is performed. Testing on heparinized plasma is not approved by the FDA; however, such approval is not necessary.Performed By: #### RENAL #### [facility] [address] [place], [place] [address]Nttlacixu [Moles/Vol]3.9 mmol/LNormal3.5 - 5.3[facility] Medical CenterComment on above:Performed By: #### RENAL #### [facility] [address] [place], [place] [address]Afyrhz [Moles/Vol]139 mmol/ZBpoyos572 - 145[facility] Medical CenterComment on above:Performed By: #### RENAL #### [facility] [address] [place], [place] [address]Yafe nitrogen [Mass/Vol]13 mg/dLNormal6 - 23[facility] Medical CenterComment on above:Performed By: #### RENAL #### [facility] [address] [place] [address] Vital Signs Date TimeVital SignValuePerforming MgjxzgcurGnzqkanb62-12-0301 09:25-0400Body vtucfu724.64 cmDick Miranda MD Work Phone: [phone]10-06-2025 09:25-0400 Body mass index (BMI) [Ratio]31.4 kg/m2Dick Miranda MD Work Phone: [phone]10-06-2025 09:25-0400 Body .3 [degF]Dick Miranda MD Work Phone: [phone]10-06-2025 09:25-0400 Body egqici23.16 kgDick Miranda MD Work Phone: [phone] [place], [place] [address]10-06-2025 09:25-0400 Diastolic blood mm[Hg]Dick Miranda MD Work Phone: [phone]10-06-2025 09:25-0400 Heart rate71 /minDick Miranda MD Work Phone: [phone] [address]10-06-2025 09:25-0400 Respiratory rate16 /minDick Miranda MD Work Phone: [phone])[address]10-06-2025 09:25-0400 SaO2% (BldA) [Mass fraction]94 %Dick Miranda MD Work Phone: [phone]10-06-2025 09:25-0400 Systolic blood gkjewlve749 mm[Hg]Dick Miranda MD Work Phone: [phone]09-17-2025 13:45-0400 Body xvujza260.64 cmBasia Vega MD Work Phone: [facility]09-17-2025 13:45-0400 Body mass index (BMI) [Ratio]29.8 kg/q6ZgdzmkftBasia Vega MD Work Phone: [facility]09-17-2025 13:45-0400 Body .91 kgBasia Vega MD Work Phone: [facility]09-17-2025 13:45-0400 Diastolic blood pfvdagcw21 mm[Hg]Basia Vega MD Work Phone: [phone] [place], [place] [address]9-17-2025 13:45-0400 Heart rate81 /minBasia Vega MD Work Phone: [phone] [place], [place] 130[address]9-17-2025 13:45-0400 Respiratory rate18 /minBasia Vega MD Work Phone: [phone]09-17-2025 13:45-0400 SaO2% (BldA) [Mass fraction]95 %Basia Vega MD Work Phone: [phone]09-17-2025 13:45-0400 Systolic blood uownyimd954 mm[Hg]Basia Vega MD Work Phone: [phone] [place], [place] 1303409-05-2025 11:44-0400 Body mass index (BMI) [Ratio]29.03 kg/c4PohjcLo Hancock MD Work Phone: [facility]09-05-2025 11:44-0400Body temperature 97 [degF]Lo Hancock MD Work Phone: [facility]09-05-2025 11:44-0400Body kdjhza62.47 kgLo Hancock MD Work Phone: [facility]09-05-2025 11:44-0400Diastolic blood cjmkmdyn05 mm[Hg]Lo Hancock MD Work Phone: [facility]09-05-2025 11:44-0400Heart rate63 /min Lo Hancock MD Work Phone: [facility]09-05-2025 11:44-0400Respiratory rate 16 /minLo Hancock MD Work Phone: [facility]09-05-2025 11:44-1246SgF3% (BldA) [Mass fraction]97 %Lo Hancock MD Work Phone: [facility]09-05-2025 11:44-0400Systolic blood mm[Hg]Lo Hancock MD Work Phone: [facility]08-25-2025 11:57-0400Diastolic blood mm[Hg]Basia Vega MD Work Phone: [phone]08-25-2025 11:57-0400 Heart rate71 /Penelope Vega MD Work Phone: [phone]08-25-2025 11:57-0400 Respiratory rate17 /Penelope Vega MD Work Phone: [phone]08-25-2025 11:57-0400 SaO2% (BldA) [Mass fraction]97 %Basia Vega MD Work Phone: [phone]08-25-2025 11:57-0400 Systolic blood mm[Hg]Basia Vega MD Work Phone: [phone]08-25-2025 09:00-0400 Body gmzfbvuuuwg01.7 [degF]Basia Vega MD Work Phone: [phone]08-25-2025 06:00-0400 Body ishyhx47.4 kgBasia Vega MD Work Phone: [phone]08-23-2025 20:38-0400 Body obcalndblpp07.8 [degF]Basia Vega MD Work Phone: [phone]08-23-2025 20:38-0400 Diastolic blood yxgmmpuw75 mm[Hg]Basia Vega MD Work Phone: [phone] [address]08-23-2025 20:38-0400 Heart rate66 /Penelope Vega MD Work Phone: [address] [place], [place] [address]2008-23-2025 20:38-0400 Respiratory rate18 /minBasia Vega MD Work Phone: [phone] [place], [place] 1303408-23-2025 20:38-0400 SaO2% (BldA) [Mass fraction]95 %Basia Vega MD Work Phone: [phone] [place], [place] 1303408-23-2025 20:38-0400 Systolic blood adcksgyf483 mm[Hg]Basia Vega MD Work Phone: [phone]08-23-2025 14:10-0400 Body yqmwbq874.64 cmBasia Vega MD Work Phone: 1([phone] [place], [place] 1303408-23-2025 14:10-0400 Body yimqom55.7 kgBasia Vega MD Work Phone: [phone] [place], [place] 1303408-13-2025 10:30-0400 Body oreipw589.6 cmDick Miranda MD Work Phone: [facility] CenterEqonpxrgws83-04-2396 10:30-0400Body mass index (BMI) [Ratio]28.57 kg/m2Dick Mirnada MD Work Phone: [place] [address]Cdrhjbrnvf55-28-4487 10:30-0400Body temperature 97.81 [degF]Dick Miranda MD Work Phone: [place] [address]Alttjklykr41-11-0379 10:30-0400Body nzaigf77.29 kgDick Miranda MD Work Phone: [place] [address]Apwzitulrw25-00-3328 10:30-0400Diastolic blood lyenucqp80 mm[Hg]Dick Miranda MD Work Phone: [place] [address]Frcuedsllp98-00-1233 10:30-0400Heart rate64 /min Dick Miranda MD Work Phone: [place] [address]Zsqugihgys76-97-0317 10:30-0400Respiratory rate20 /minDick Miranda MD Work Phone: [facility] CenterScuimjyziz69-73-6528 10:30-2569IlW6% (BldA) [Mass fraction]95 %Dick Miranda MD Work Phone: [facility] CenterFbliergeul83-18-5040 10:30-0400Systolic blood gbtysoxr154 mm[Hg]Dick Miranda MD Work Phone: [facility] CenterQyfblytrjp77-27-5325 13:36-0400Body sngwaw271.6 Irvin Garcia MD Work Phone: [phone]07-23-2025 13:36-0400Body mass index (BMI) [Ratio]28.41 kg/r7XdbijwytnfyNeha Garcia MD Work Phone: [phone])[address] [place], [place] 7053807-23-2025 13:36-0400Body ptdhiz27.83 kgNeha Garcia MD Work Phone: [phone])[address] [place], [place] 7053807-23-2025 13:36-0400Diastolic blood nsdsmiqt98 mm[Hg]Neha Garcia MD Work Phone: [phone] [place], [place] 7053807-23-2025 13:36-0400Heart rate 64 /minNeha Garcia MD Work Phone: [phone])[address] [place], [place] 7053807-23-2025 13:36-3841MwT7% (BldA) [Mass fraction]95 %Neha Garcia MD Work Phone: [phone])[address] [place], [place] 7053807-23-2025 13:36-0400Systolic blood hgyqynqd954 mm[Hg]Neha Garcia MD Work Phone: [phone])[address] [place], [place] [address]053806-27-2025 14:23-0400Body mass index (BMI) [Ratio]28.93 kg/m2Jack Hoang MD Work Phone: [facility]06-27-2025 14:23-0400Body temperature 98.2 [degF]Jack Hoang MD Work Phone: [facility]06-27-2025 14:23-0400Body qcougm55.2 kgJack Hoang MD Work Phone: [facility]06-27-2025 14:23-0400Diastolic blood iazkaguz93 mm[Hg]Jack Hoang MD Work Phone: [facility]06-27-2025 14:23-0400Heart rate65 /min Jack Hoang MD Work Phone: [facility]06-27-2025 14:23-0400Respiratory rate 18 /minSryan Hoang MD Work Phone: [facility]06-27-2025 14:23-9710KnT5% (BldA) [Mass fraction]95 %Jack Hoang MD Work Phone: [facility]06-27-2025 14:23-0400Systolic blood cbgixdaa214 mm[Hg]Jack Hoang MD Work Phone: [facility]06-02-2025 09:57-0400Body gwcjue297.6 cmBina Griffin DO Work Phone: 1(484)[facility]06-02-2025 09:57-0400Body mass index (BMI) [Ratio]28.25 kg/m2Bina Griffin DO Work Phone: 1(508)[facility]06-02-2025 09:57-0400Body .38 kgBina Griffin DO Work Phone: 1(935)[facility] [facility] 09:57-0400Diastolic blood tpawnppv41 mm[Hg]Bina Griffin DO Work Phone: 1(180)[facility] SEWORKS Npghjv22-36-6123 09:57-0400Heart rate 57 /minBina Griffin DO Work Phone: 1(971)[facility]06-02-2025 09:57-7153SsI4% (BldA) [Mass fraction]96 %Bina Griffin DO Work Phone: 1(168)[facility]06-02-2025 09:57-0400Systolic blood gbtkdeuu664 mm[Hg]Bina Griffin DO Work Phone: 1(945)[facility]05-16-2025 13:24-0400Body mass index (BMI) [Ratio]30.05 kg/k8EcwrxMichelle Mejia APRN.MAPPING SPECIALIST Work Phone: [facility]05-16-2025 13:24-0400Body temperature 97.11 [degF]Michelle Mejia INSPECTOR HEATING AND REFRIGERATION.MAPPING SPECIALIST Work Phone: [facility]05-16-2025 13:24-0400Body cifupf15.3 kgMichelle Mejia APRN.MAPPING SPECIALIST Work Phone: [facility]05-16-2025 13:24-0400Diastolic blood vpliwfcg76 mm[Hg]Michelle Mejia APRN.MAPPING SPECIALIST Work Phone: [facility]05-16-2025 13:24-0400Heart rate68 /min Michelle Mejia APRN.MAPPING SPECIALIST Work Phone: [facility]05-16-2025 13:24-0400Respiratory rate 18 /minMichelle Mejia APRN.MAPPING SPECIALIST Work Phone: [facility]05-16-2025 13:24-9803ZsQ3% (BldA) [Mass fraction]97 %Michelle Mejia APRN.MAPPING SPECIALIST Work Phone: [facility]05-16-2025 13:24-0400Systolic blood vxftffas920 mm[Hg]Michelle Mejia APRN.MAPPING SPECIALIST Work Phone: [facility]04-11-2025 13:35-0400Body oobtdk527.5 cmBannerjessica Scott INSPECTOR HEATING AND REFRIGERATION.MAPPING SPECIALIST Work Phone: c[facility] HospitalFwoouy31-95-8423 13:35-0400Body mass index (BMI) [Ratio]30.12 kg/s8Qyxtoapojessica Scott INSPECTOR HEATING AND REFRIGERATION.MAPPING SPECIALIST Work Phone: c[facility] HospitalHeepwz40-11-0226 13:35-0400Body temperature 97.7 [degF]Joey Scott INSPECTOR HEATING AND REFRIGERATION.MAPPING SPECIALIST Work Phone: [phone]11-2025 13:35-0400Body nlumax21.5 kgKiCarilion Roanoke Community Hospitalrid INSPECTOR HEATING AND REFRIGERATION.MAPPING SPECIALIST Work Phone: [phone]11-2025 13:35-0400Diastolic blood lududcjm04 mm[Hg]Joey Bundridge INSPECTOR HEATING AND REFRIGERATION.MAPPING SPECIALIST Work Phone: [place] [address]-11-2025 13:35-0400Heart rate66 /min [facility] Hospitalridge INSPECTOR HEATING AND REFRIGERATION.MAPPING SPECIALIST Work Phone: [phone] [address]-11-2025 13:35-0400Respiratory rate 16 /minDign[facility] Health [facility] Specialty Hospitalridconcepcion INSPECTOR HEATING AND REFRIGERATION.MAPPING SPECIALIST Work Phone: [address]11-2025 13:35-0400Systolic blood ukepqzof201 mm[Hg][facility] Hospitalridconcepcion INSPECTOR HEATING AND REFRIGERATION.MAPPING SPECIALIST Work Phone: [phone] [address]-11-2025 13:23-0400Body .5 cmMichelle Mejia INSPECTOR HEATING AND REFRIGERATION.MAPPING SPECIALIST Work Phone: [place] [address]-11-2025 13:23-0400Body mass index (BMI) [Ratio]30.01 kg/g0YmebrMichelle Mejia INSPECTOR HEATING AND REFRIGERATION.MAPPING SPECIALIST Work Phone: [place] [address]-11-2025 13:23-0400Body temperature 97.59 [degF]Michelle Mejia INSPECTOR HEATING AND REFRIGERATION.MAPPING SPECIALIST Work Phone: [place] [address]-11-2025 13:23-0400Body ixwyox07.2 kgMichelle Mejia INSPECTOR HEATING AND REFRIGERATION.MAPPING SPECIALIST Work Phone: [place] [address]-11-2025 13:23-0400Diastolic blood tgdrhnys14 mm[Hg]Michelle Mejia INSPECTOR HEATING AND REFRIGERATION.MAPPING SPECIALIST Work Phone: [place] [address]-11-2025 13:23-0400Heart rate66 /min Michelle Mejia INSPECTOR HEATING AND REFRIGERATION.MAPPING SPECIALIST Work Phone: [phone]11-2025 13:23-0400Respiratory rate 16 /minMichelle Mejia INSPECTOR HEATING AND REFRIGERATION.MAPPING SPECIALIST Work Phone: [facility]04-11-2025 13:23-6729PdL2% (BldA) [Mass fraction]97 %Michelle Mejia INSPECTOR HEATING AND REFRIGERATION.MAPPING SPECIALIST Work Phone: [facility]04-11-2025 13:23-0400Systolic blood gnmoqsej717 mm[Hg]Michelle Mejia INSPECTOR HEATING AND REFRIGERATION.MAPPING SPECIALIST Work Phone: [facility]03-14-2025 12:52-0400Body talpeb229.5 Hyun Hancock MD Work Phone: [facility] CenterComment on above:verified no shoes 05-18-2024 12:52-0400Body mass index (BMI) [Ratio]29.58 kg/l9ZaudmLo Hancock MD Work Phone: [facility]03-14-2025 12:52-0400Body temperature 97.11 [degF]Lo Hancock MD Work Phone: [facility]03-14-2025 12:52-0400Body kg Lo Hancock MD Work Phone: [facility]03-14-2025 12:52-0400Diastolic blood wruyygrc21 mm[Hg]Lo Hancock MD Work Phone: [facility]03-14-2025 12:52-0400Heart rate65 /min Lo Hancock MD Work Phone: [facility]03-14-2025 12:52-0400Respiratory rate 16 /minLo Hancock MD Work Phone: [facility]03-14-2025 12:52-3483GvT7% (BldA) [Mass fraction]96 %Lo Hancock MD Work Phone: [facility]03-14-2025 12:52-0400Systolic blood nfictsms817 mm[Hg]Lo Hancock MD Work Phone: [facility]02-26-2025 10:08-0500Body mass index (BMI) [Ratio]29.44 kg/m2Jack Hoang MD Work Phone: [facility]02-26-2025 10:08-0500Body temperature 96.69 [degF]Jack Hoang MD Work Phone: [facility]02-26-2025 10:08-0500Body oyjuce98.7 kgJack Hoang MD Work Phone: [facility]02-26-2025 10:08-0500Diastolic blood zganzubt25 mm[Hg]Jack Hoang MD Work Phone: [facility]02-26-2025 10:08-0500Heart rate64 /min Jack Hoang MD Work Phone: [facility]02-26-2025 10:08-0500Respiratory rate 18 /minSryan Hoang MD Work Phone: [facility]02-26-2025 10:08-3475NjG7% (BldA) [Mass fraction]95 %Jack Hoang MD Work Phone: [facility]02-26-2025 10:08-0500Systolic blood mm[Hg]Jack Hoang MD Work Phone: [facility]02-12-2025 10:08-0500Body lmsjoy591.6 cmDick Miranda MD Work Phone: [facility] CenterKnvyfyaudm68-85-2555 10:08-0500Body mass index (BMI) [Ratio]30.51 kg/m2Dick Miranda MD Work Phone: [place] [address]Xmqkfnzzor46-78-8949 10:08-0500Body temperature 97.5 [degF]Dick Miranda MD Work Phone: [facility]'sSnppmmwktc61-87-9465 10:08-0500Body oevdpg49.73 kgDick Miranda MD Work Phone: [facility] CenterVvmoxtjhdm62-53-8815 10:08-0500Diastolic blood mmvzbnde00 mm[Hg]Dick Miranda MD Work Phone: [facility] CenterFfeqlgrnae64-04-6229 10:08-0500Heart rate76 /min Dick Miranda MD Work Phone: [facility] CenterGgmkdddxpm15-32-8686 10:08-0500Respiratory rate18 /minDick Miranda MD Work Phone: [facility] CenterIsltjuostp87-62-3106 10:08-2854NgT0% (BldA) [Mass fraction]92 %Dick Miranda MD Work Phone: [facility] CenterMiwflimwnx93-13-6655 10:08-0500Systolic blood ylljcivj099 mm[Hg]Dick Miranda MD Work Phone: [facility] CenterSjdvqrhlwd99-34-0722 13:23-0500Body jlgynd430.6 cmVcayden Hancock MD Work Phone: [facility]02-05-2025 13:23-0500Body mass index (BMI) [Ratio]30.05 kg/c0LmdtpLo Hancock MD Work Phone: [facility]02-05-2025 13:23-0500Body temperature 98.01 [degF]Lo Hancock MD Work Phone: [facility]02-05-2025 13:23-0500Body yypiut34.4 kgLo Hancock MD Work Phone: [place] [address]-05-2025 13:23-0500Diastolic blood rbcurffb48 mm[Hg]Lo Hancock MD Work Phone: [place] [address]-05-2025 13:23-0500Heart rate61 /min Lo Hancock MD Work Phone: [facility]02-05-2025 13:23-0500Respiratory rate 16 /minLo Hancock MD Work Phone: [facility]02-05-2025 13:23-9531GfL1% (BldA) [Mass fraction]96 %Lo Hancock MD Work Phone: [facility]02-05-2025 13:23-0500Systolic blood rqcivwxl654 mm[Hg]Lo Hancock MD Work Phone: [facility]02-03-2025 11:26-0500Body mass index (BMI) [Ratio]30.34 kg/m2Bina Griffin DO Work Phone: 1(724)[facility]02-03-2025 11:26-0500Body osdeuo66.28 kgBina Griffin DO Work Phone: 1(749)[facility]02-03-2025 11:26-0500Diastolic blood ztuptwxg49 mm[Hg]Bina Griffin DO Work Phone: 1(606)[facility]02-03-2025 11:26-0500Heart rate 70 /minBina Griffin DO Work Phone: 1(972)[facility]02-03-2025 11:26-0500Systolic blood hivzrhjf818 mm[Hg]Bina Griffin DO Work Phone: 1(740)[facility]01-17-2025 14:44-0500Body mass index (BMI) [Ratio]30.1 kg/w4WuhmbbffMission Family Health Center INSPECTOR HEATING AND REFRIGERATION.MAPPING SPECIALIST Work Phone: WEast [facility] HospitalOovsbd22-66-6603 14:44-0500Body temperature 97.81 [degF][facility] INSPECTOR HEATING AND REFRIGERATION.MAPPING SPECIALIST Work Phone: [place] Lqtgvk21-20-3654 14:44-0500Body ratlpa75.6 kgMission Family Health Center INSPECTOR HEATING AND REFRIGERATION.MAPPING SPECIALIST Work Phone: [place] Dxybeo13-77-6302 14:44-0500Diastolic blood ldbjdutd65 mm[Hg]Joey Bundrid INSPECTOR HEATING AND REFRIGERATION.MAPPING SPECIALIST Work Phone: 1(216)445-[address] [place], [place] [address]01-17-2025 14:44-0500Heart rate74 /min Joey Bundridge INSPECTOR HEATING AND REFRIGERATION.MAPPING SPECIALIST Work Phone: [phone] [facility] City HospitalLafjoz04-95-4487 14:44-0500Respiratory rate 18 /minKimberly Bundridge INSPECTOR HEATING AND REFRIGERATION.MAPPING SPECIALIST Work Phone: [phone] [facility] HospitalNbfxtj79-92-7109 14:44-4723FoQ7% (BldA) [Mass fraction]96 %Joey Bundridge INSPECTOR HEATING AND REFRIGERATION.MAPPING SPECIALIST Work Phone: NEast [facility] HospitalYzxlrs24-30-2991 14:44-0500Systolic blood wbcumcgf348 mm[Hg]Joey Bundridge INSPECTOR HEATING AND REFRIGERATION.MAPPING SPECIALIST Work Phone: c[facility] HospitalIetuoq11-31-2527 12:55-0500Body mass index (BMI) [Ratio]30.25 kg/m2Jack Hoang MD Work Phone: [facility]01-06-2025 12:55-0500Body temperature 97.39 [degF]Jack Hoang MD Work Phone: [facility]01-06-2025 12:55-0500Body kg Jack Hoang MD Work Phone: [facility]01-06-2025 12:55-0500Diastolic blood khhezrgc25 mm[Hg]Jack Hoang MD Work Phone: [facility]01-06-2025 12:55-0500Heart rate71 /min Jack Hoang MD Work Phone: [facility]01-06-2025 12:55-0500Respiratory rate 18 /minSryan Hoang MD Work Phone: [place] [address]-06-2025 12:55-1711JhM7% (BldA) [Mass fraction]95 %Jack Hoang MD Work Phone: [facility]01-06-2025 12:55-0500Systolic blood mlilbmug930 mm[Hg]Jack Hoang MD Work Phone: [facility]01-02-2025 10:24-0500Body pmenae968.6 cmGrant Luiza DISH MACHINE OPERATOR Work Phone: [facility] CenterCqlceehmwx19-52-2307 10:24-0500Body mass index (BMI) [Ratio]31.31 kg/v7Pysma Luiza DISH MACHINE OPERATOR Work Phone: [facility] CenterVglxeycsaa64-14-9746 10:24-0500Body kg Robert Luiza DISH MACHINE OPERATOR Work Phone: [facility] CenterGkjjpwabgy94-93-8000 10:19-0500Body rtrhxu514.6 Stephenie Owen MD Work Phone: [facility]12-30-2024 10:19-0500Body mass index (BMI) [Ratio]30.83 kg/j9RixjjGary Owen MD Work Phone: [facility]12-30-2024 10:19-0500Body rpbjuh15.64 kgGary Owen MD Work Phone: [facility]12-30-2024 10:19-0500Diastolic blood sfddishd15 mm[Hg]Gary Owen MD Work Phone: [facility]12-30-2024 10:19-0500Heart rate 85 /minGary Owen MD Work Phone: [facility]12-30-2024 10:19-2017ArQ2% (BldA) [Mass fraction]96 %Gary Owen MD Work Phone: [facility]12-30-2024 10:19-0500Systolic blood wuxklwpq018 mm[Hg]Gary Owen MD Work Phone: [facility]12-20-2024 14:35-0500Body mass index (BMI) [Ratio]30.57 kg/a6EjpyeLo Hancock MD Work Phone: [facility]12-20-2024 14:35-0500Body temperature 97.7 [degF]Lo Hancock MD Work Phone: [facility]12-20-2024 14:35-0500Body tfodks60.9 kgLo Hancock MD Work Phone: [facility]12-20-2024 14:35-0500Diastolic blood ogxvcpiz35 mm[Hg]Lo Hancock MD Work Phone: [facility]12-20-2024 14:35-0500Heart rate69 /min Lo Hancock MD Work Phone: [facility]12-20-2024 14:35-0500Respiratory rate 18 /minLo Hancock MD Work Phone: [facility]12-20-2024 14:35-9333IdA9% (BldA) [Mass fraction]95 %Lo Hancock MD Work Phone: [facility]12-20-2024 14:35-0500Systolic blood ozjuklhb744 mm[Hg]Lo Hancock MD Work Phone: [facility]12-09-2024 13:06-0500Body mass index (BMI) [Ratio]30.83 kg/q3ExorawOlegario Moreira MD Work Phone: 1(541)[facility]12-09-2024 13:06-0500Body pucokp91.64 kgOlegario Moreira MD Work Phone: 1(786)[facility]12-09-2024 13:06-0500Diastolic blood bpgufqjh19 mm[Hg]Olegario Moreira MD Work Phone: 1(117)[facility]12-09-2024 13:06-0500Heart rate 72 /minSelise Moreira MD Work Phone: 1(027)[facility]12-09-2024 13:06-0500Systolic blood oggdhmex803 mm[Hg]Olegario Moreira MD Work Phone: 1(497)[facility]2024 11:01-0500Body vuuonq943.6 cmLemaddy Oreilly MD Work Phone: [facility]2024 11:01-0500Body mass index (BMI) [Ratio]30.71 kg/r0AgszokuSavanah Oreilly MD Work Phone: [facility]2024 11:01-0500Body zqbkim54.3 kgSavanah Oreilly MD Work Phone: [facility]2024 11:01-0500Diastolic blood yyfplzzk59 mm[Hg]Savanah Oreilly MD Work Phone: [facility]2024 11:01-0500Heart rate75 /min Savanah Oreilly MD Work Phone: [facility]2024 11:01-2131VzF9% (BldA) [Mass fraction]100 %Savanah Oreilly MD Work Phone: [facility]2024 11:01-0500Systolic blood muflyzrt643 mm[Hg]Savanah Oreilly MD Work Phone: [facility]11-12-2024 10:28-0500Body ajazfp142.6 cmDick Miranda MD Work Phone: [facility] CenterWbxsvpshho43-17-8862 10:28-0500Body mass index (BMI) [Ratio]31.31 kg/m2Dick Miranda MD Work Phone: [place] [address]Kyxwpbkzij79-70-0888 10:28-0500Body temperature 97.5 [degF]Dick Miranda MD Work Phone: [place] [address]Pcmgfhjhov25-82-0702 10:28-0500Body duxqqu64 kg Dick Miranda MD Work Phone: [place] [address]Pboquoemip64-77-0609 10:28-0500Diastolic blood tmmrvixp77 mm[Hg]Dick Miranda MD Work Phone: [place] [address]Orongsyjnn67-66-9882 10:28-0500Heart rate81 /min Dick Miranda MD Work Phone: [facility] CenterNkzkrkbman97-59-7041 10:28-0500Respiratory rate20 /minDick Miranda MD Work Phone: [facility] CenterOgzcramwxx18-97-7645 10:28-8649RaS5% (BldA) [Mass fraction]95 %Dick Miranda MD Work Phone: [facility] CenterUoibfmmmem78-23-5375 10:28-0500Systolic blood jyswmlpf663 mm[Hg]Dick Miranda MD Work Phone: [facility] CenterNgldfstpze79-61-9711 13:44-0400Body czakww916.6 cmDick Miranda MD Work Phone: [facility] CenterNarcplgvyg86-97-0428 13:44-0400Body mass index (BMI) [Ratio]30.67 kg/m2Dick Miranda MD Work Phone: [facility] CenterHuqsiakmur76-70-0915 13:44-0400Body temperature 97.81 [degF]Dick Miranda MD Work Phone: [facility] CenterCewpcqrdrf72-19-3297 13:44-0400Body zjtbyy01.18 kgDick Miranda MD Work Phone: [facility] CenterAjijpctrhs09-99-5184 13:44-0400Diastolic blood cdlmsevu62 mm[Hg]Dick Miranda MD Work Phone: [facility] CenterZrymsglacw61-71-1487 13:44-0400Heart rate90 /min Dick Miranda MD Work Phone: [facility] CenterLsaikkbxpp72-91-0394 13:44-0400Respiratory rate22 /minDick Miranda MD Work Phone: [place] [address]Gfcgswevzb58-37-1666 13:44-1493CkA9% (BldA) [Mass fraction]95 %Dick Miranda MD Work Phone: [facility] CenterXavjlspsiz97-07-8923 13:44-0400Systolic blood ssyeifuo303 mm[Hg]Dick Miranda MD Work Phone: [facility] CenterZpkhcbetof73-41-0065 09:31-0400Body julyiw639.5 cmVcayden Hancock MD Work Phone: [facility]10-23-2024 09:31-0400Body mass index (BMI) [Ratio]31.27 kg/u0GgdttLo Hancock MD Work Phone: [facility]10-23-2024 09:31-0400Body temperature 97.2 [degF]Lo Hancock MD Work Phone: 1(662)469-[address] [place], [place] [address]10-23-2024 09:31-0400Body .7 kgLo Hancock MD Work Phone: [address] [place], [place] [address]10-23-2024 09:31-0400Diastolic blood wixoyuyw99 mm[Hg]Lo Hancock MD Work Phone: 1(960)255-[address] [place], [place] [address]10-23-2024 09:31-0400Heart rate72 /min Lo Hancock MD Work Phone: 1(318)902-[address] [place], [place] [address]10-23-2024 09:31-0400Respiratory rate 16 /minLo Hancock MD Work Phone: [address] [place], [place] [address]10-23-2024 09:31-8434DdZ8% (BldA) [Mass fraction]99 %Lo Hancock MD Work Phone: 1(484)810-[address] [place], [place] [address]-23-2024 09:31-0400Systolic blood syvfxqcx482 mm[Hg]Lo Hancock MD Work Phone: [facility]10-18-2024 13:03-0400Body bwqege908.5 cmLupejessica Scott APRN.MAPPING SPECIALIST Work Phone: c[facility] HospitalWetmdp30-41-2688 13:03-0400Body mass index (BMI) [Ratio]30.95 kg/q6Lyhgjsbqjessica Scott APRN.MAPPING SPECIALIST Work Phone: 1(216)445-[address] [place] [address]-18-2024 13:03-0400Body temperature 97.7 [degF][facility] INSPECTOR HEATING AND REFRIGERATION.MAPPING SPECIALIST Work Phone: 1(216)[facility]-4634YEast [facility] City HospitalDyyonj97-76-0270 13:03-0400Body .8 kgM[facility] Health Center INSPECTOR HEATING AND REFRIGERATION.MAPPING SPECIALIST Work Phone: 1(216)[facility]-7862MJohn [place] [address]-18-2024 13:03-0400Diastolic blood bikblnvf36 mm[Hg][facility] INSPECTOR HEATING AND REFRIGERATION.MAPPING SPECIALIST Work Phone: 1(216)[facility]-2949RJohn [place] [address]-18-2024 13:03-0400Heart rate78 /min [facility] INSPECTOR HEATING AND REFRIGERATION.MAPPING SPECIALIST Work Phone: 1(216)[facility]-1050BJohn [place] [address]-18-2024 13:03-0400Respiratory rate 18 /minM[facility] Center INSPECTOR HEATING AND REFRIGERATION.MAPPING SPECIALIST Work Phone: 1(216)[facility]-[address] [place] [address]-18-2024 13:03-3680KmB0% (BldA) [Mass fraction]96 %[facility] INSPECTOR HEATING AND REFRIGERATION.MAPPING SPECIALIST Work Phone: 1(216)[facility]-2140TJohn [place] [address]-18-2024 13:03-0400Systolic blood lwrwezhu672 mm[Hg][facility] INSPECTOR HEATING AND REFRIGERATION.MAPPING SPECIALIST Work Phone: DEast [facility] HospitalQivytx38-45-6904 09:33-0400Body etbqam471.5 Hyun Hancock MD Work Phone: [facility]10-02-2024 09:33-0400Body mass index (BMI) [Ratio]30.52 kg/n9BuxmrLo Hancock MD Work Phone: [facility]10-02-2024 09:33-0400Body temperature 97.81 [degF]Lo Hancock MD Work Phone: [place] [address]-02-2024 09:33-0400Body .6 kgLo Hancock MD Work Phone: [facility]10-02-2024 09:33-0400Diastolic blood brnwpdob18 mm[Hg]Lo Hancock MD Work Phone: [facility]10-02-2024 09:33-0400Heart rate73 /min Lo Hancock MD Work Phone: [facility]10-02-2024 09:33-0400Respiratory rate 16 /minLo Hancock MD Work Phone: [facility]10-02-2024 09:33-1736QhZ4% (BldA) [Mass fraction]96 %Lo Hancock MD Work Phone: [phone]10-02-2024 09:33-0400Systolic blood ycjzyacy628 mm[Hg]Lo Hancock MD Work Phone: [facility]09-11-2024 09:06-0400Body vaxjvk780.5 cmVcayden Hancock MD Work Phone: [phone] CenterComment on above:verified by 2 inrprplpte09-84-3989 09:06-0400Body mass index (BMI) [Ratio]29.36 kg/f7HwouhLo Hancock MD Work Phone: [facility]09-11-2024 09:06-0400Body temperature 97.9 [degF]Lo Hancock MD Work Phone: [phone]09-11-2024 09:06-0400Body vvvqyy57.4 kgLo Hancock MD Work Phone: [facility]09-11-2024 09:06-0400Diastolic blood zrudebsd24 mm[Hg]Lo Hancock MD Work Phone: [phone]09-11-2024 09:06-0400Heart rate67 /min Lo Hancock MD Work Phone: [facility]09-11-2024 09:06-0400Respiratory rate 16 /minLo Hancock MD Work Phone: [facility]09-11-2024 09:06-6883WeE3% (BldA) [Mass fraction]95 %Lo Hancock MD Work Phone: [facility]09-11-2024 09:06-0400Systolic blood arspllel215 mm[Hg]Lo Hancock MD Work Phone: [facility]09-04-2024 13:05-0400Body nginkc276.6 cmLemaddy Oreilly MD Work Phone: [facility]09-04-2024 13:05-0400Body mass index (BMI) [Ratio]28.36 kg/a7AtjhegcSavanah Oreilly MD Work Phone: [facility]09-04-2024 13:05-0400Body utzscw28.7 kgSavanah Oreilly MD Work Phone: [facility]09-04-2024 13:05-0400Diastolic blood tjmdetgn04 mm[Hg]Savanah Oreilly MD Work Phone: [facility]09-04-2024 13:05-0400Heart rate71 /min Savanah Oreilly MD Work Phone: [facility]09-04-2024 13:05-3101UoJ9% (BldA) [Mass fraction]97 %Savanah Oreilly MD Work Phone: [facility]09-04-2024 13:05-0400Systolic blood yjrjnbmy897 mm[Hg]Savanah Oreilly MD Work Phone: [facility]08-21-2024 14:29-0400Body jronzg385.6 cmPacc 2 Work Phone: [facility]08-21-2024 14:29-0400Body mass index (BMI) [Ratio]28.11 kg/m2Pacc 2 Work Phone: [facility]08-21-2024 14:29-0400Body temperature 98.29 [degF]Pacc 2 Work Phone: [place] [address]-21-2024 14:29-0400Body bbajed27 kg Pacc 2 Work Phone: [facility]08-21-2024 14:29-0400Diastolic blood ojhxvxkj71 mm[Hg]Pacc 2 Work Phone: [place] [address]-21-2024 14:29-0400Heart rate70 /min Pacc 2 Work Phone: [place] [address]-21-2024 14:29-0400Respiratory rate 14 /minPacc 2 Work Phone: [place] [address]-21-2024 14:29-9608TnG2% (BldA) [Mass fraction]98 %Pacc 2 Work Phone: [place] [address]-21-2024 14:29-0400Systolic blood jwlpuprt496 mm[Hg]Pacc 2 Work Phone: [place] [address]-16-2024 16:13-0400Body temperature 97.11 [degF]Lo Hancock MD Work Phone: [place] [address]-16-2024 16:13-0400Body pdiiok83.9 kgLo Hancock MD Work Phone: [place] [address]-16-2024 16:13-0400Diastolic blood mm[Hg]Lo Hancock MD Work Phone: [place] [address]-16-2024 16:13-0400Heart rate77 /min Lo Hancock MD Work Phone: [place] [address]-16-2024 16:13-0400Respiratory rate 18 /minLo Hancock MD Work Phone: [place] [address]-16-2024 16:13-5278ZlA6% (BldA) [Mass fraction]97 %Lo Hancock MD Work Phone: [place] [address]-16-2024 16:13-0400Systolic blood daweuodj631 mm[Hg]Lo Hancock MD Work Phone: [facility]08-15-2024 11:58-0400Body .6 Tiffany Lang DO Work Phone: [facility]08-15-2024 11:58-0400Body mass index (BMI) [Ratio]28.02 kg/o7DxpviiEstefany Lang DO Work Phone: [facility]08-15-2024 11:58-0400Body sykubs72.74 kgEstefany Lang DO Work Phone: [facility]08-15-2024 11:58-0400Diastolic blood pkybolwj05 mm[Hg]Estefany Lang DO Work Phone: [facility]08-15-2024 11:58-0400Heart rate 67 /minSfawn Lang DO Work Phone: [facility]08-15-2024 11:58-6209VpK7% (BldA) [Mass fraction]96 %Estefany Lang DO Work Phone: [facility]08-15-2024 11:58-0400Systolic blood yubndnpr742 mm[Hg]Estefany Lang DO Work Phone: [facility]08-08-2024 15:31-0400Body hmzotz482.6 Derrick Abdi MD Work Phone: [facility]08-08-2024 15:31-0400Body mass index (BMI) [Ratio]28.36 kg/o0EhyvoGerald Abdi MD Work Phone: [facility]08-08-2024 15:31-0400Body qowdlhitcri55.2 [degF]Gerald Abdi MD Work Phone: [facility]08-08-2024 15:31-0400Body ronowj23.65 kgGerald Abdi MD Work Phone: [facility]08-08-2024 15:31-0400Diastolic blood lgzokesy09 mm[Hg]Gerald Abdi MD Work Phone: [facility]08-08-2024 15:31-0400Heart rate 71 /minGerald Abdi MD Work Phone: [facility] [facility]08-[facility]24 15:31-0400 Respiratory rate18 /Ameya Abdi MD Work Phone: [facility]08-08-2024 15:31-0639QuN2% (BldA) [Mass fraction]98 %Gerald Abdi MD Work Phone: [facility]08-08-2024 15:31-0400Systolic blood czopvewx095 mm[Hg]Gerald Abdi MD Work Phone: [facility]07-29-2024 13:06-0400Diastolic blood jehofnjx92 mm[Hg]Olegario Moreira MD Work Phone: 1(400)[facility]07-29-2024 13:06-0400Heart rate 68 /Álvaro Moreira MD Work Phone: 1(517)[facility]07-29-2024 13:06-0400Systolic blood mm[Hg]Olegario Moreira MD Work Phone: 1(151)[facility]04-22-2024 09:46-0400Diastolic blood pozbvnvn92 mm[Hg]Olegario Moreira MD Work Phone: 1(596)[facility]04-22-2024 09:46-0400Systolic blood oeudfbpc212 mm[Hg]Olegario Moreira MD Work Phone: 1(914)[facility]04-22-2024 09:44-0400Body ukpuid543.2 Bj Moreira MD Work Phone: 1(930)[facility]04-22-2024 09:44-0400Body mass index (BMI) [Ratio]28.19 kg/u1RhyfdhOlegario Moreira MD Work Phone: 1(334)[facility]04-22-2024 09:44-0400Body zslyqm86.65 kgOlegario Moreira MD Work Phone: 1(628)[facility] HospitalComment on above:per patient 06-27-2023 09:44-0400Heart rate71 /minSelise Moreira MD Work Phone: [phone]04-22-2024 09:44-5920TdT8% (BldA) [Mass fraction]96 %Olegario Moreira MD Work Phone: 1(396)[facility]02-14-2024 11:31-0500Body rashfl055.6 cmDick Miranda MD Work Phone: [facility] CenterDpvvipufxo30-08-7763 11:31-0500Body mass index (BMI) [Ratio]29.54 kg/m2Dick Miranda MD Work Phone: [facility] CenterRwllskkliu50-69-3960 11:31-0500Body temperature 97.11 [degF]Dick Miranda MD Work Phone: [facility] CenterIckicarqrm31-72-3018 11:31-0500Body ytoepg32.01 kgDick Miranda MD Work Phone: [facility] CenterGufltesjoo30-54-6777 11:31-0500Diastolic blood kcvexysq18 mm[Hg]Dick Miranda MD Work Phone: [facility] CenterRbtwazgqwf64-58-4732 11:31-0500Heart rate66 /min Dick Miranda MD Work Phone: [facility] John'sCiprxzetln54-49-9492 11:31-1731UdN7% (BldA) [Mass fraction]97 %Dick Miranda MD Work Phone: noMer[facility] John'sEinluudefh65-72-1093 11:31-0500Systolic blood jessnbnw161 mm[Hg]Dick Miranda MD Work Phone: noIN [facility] Encounters Encounter DateEncounter TypeCare ProviderFacilityStart: 12-31-2024 End: 67-29-0172fcnryqkduvAmcbiimJagdish William MDFacility:ELAINA Landis Start: 12-10-2024 End: 89-56-1100xwktvdddltDtcf Naderer MD Work Phone: [facility] Work Phone: Start: 12-10-2024 End: 34-72-1003Awfcqdd encounter procedureDick Miranda MDBrockton VA Medical Centere Work Phone: Start: 75-14-4236Mfr-patient / Non-visitLo Hancock MD-[facility] Work Phone: Start: 12-07-2024 End: 77-18-8314bjillkhpdlYIURIS ROODFacility:[facility]art: 11-30-2024 End: 02-73-6490tjcfnpplchFOBZTUQX J BUNDRIDGEFacility:[facility] Start: 75-53-3048Hmh-patient / Non-visitLo Hancock MD-[facility] Work Phone: Start: 11-23-2024 End: 52-13-9285bwhgcwjdoiLIZE A NADERERFacility:[facility] HospitalStart: 11-23-2024 End: 81-35-6274zarrepznjbPAJFBK ROODFacility:[facility] Hospitaltart: 11-21-2024 End: 29-35-3500thlgmudtmrPazitxxq Diller MD Work Phone: [facility] Work Phone: Start: 11-21-2024 End: 88-21-2040Hdtyxut encounter procedureDick Miranda MDBrockton [facility] Medical Centere Work Phone: Start: 11-20-2024 End: 49-04-7684cxksiebqozPRXDET STEINERNot AvailableStart: 11-16-2024 End: 14-03-9574wcxvbxjhesUOJK RAJANFacility:[facility] Hospitaltart: 11-09-2024 End: 83-09-4488Nsigxoflf encounterLo Hancock MD Work Phone: Cancer Appts MCComment on above:ResultsStart: 11-09-2024 End: 98-19-7469Ftgogf outpatient visit 40 minutesLo Hancock MD Work Phone: Hematology/OncologyComment on above:Radiation-induced pulmonary fibrosis (HCC) (Primary Dx); Malignant neoplasm of unspecified part of unspecified bronchus or lung (HCC); Neuralgia; Pleural effusion, not elsewhere classified; Herpes zoster without complications; Encounter for follow-up examination after completed treatment for malignant neoplasm; manager long term care (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Start: 11-09-2024 End: 73-48-2852cajxuwrdlzQXNRV ABHYANKARFacility:[facility] Hospitaltart: 44-74-5151Bhm-patient / Non-visitLo Hancock MD-[facility] Work Phone: Start: 37-03-0677lmtbajmuieBNTFR ABHYANKAR Facility:[facility]: 11-09-2024 End: 37-09-2265Gwgunvutib hospital visit by physicianArrival Time Radiology Work Phone: Radiology Pet CTComment on above:Malignant neoplasm of unspecified part of unspecified bronchus or lung (HCC) [C34.90]Start: 11-06-2024 End: 06-78-8919Dvuvbnchz encounterNoemy Chicas RN Work Phone: Hematology/OncologyComment on above:Care Coordination (Lung Pain)Start: 10-30-2024 End: 16-17-8313Kfnokgpfr encounterNoemy Chicas RN Work Phone: Hematology/OncologyComment on above:Care Coordination (Discharge Follow Up Call )Start: 10-29-2024 End: 97-55-1854Uynpsuyvb encounterNoemy Chicas RN Work Phone: Hematology/OncologyComment on above:Care Coordination (Hospital Admission)Start: 10-27-2024 End: 72-23-0208Zchihuyplx and management of inpatientMichael R. Cass DO-[facility] Work Phone: Start: 16-51-3336Heg-patient / Non-visitAdam Johs Barron MD-[facility] Work Phone: Start: 10-26-2024 End: 93-55-6054Bztxaaiaw Result EncounterGeneric External Data ProviderNOMS External Department UnsolicitedStart: 10-26-2024 End: 62-27-5584Xgbxfnknv Result EncounterGeneric External Data ProviderNOMS External Department UnsolicitedStart: 14-10-1798andjeqdrxqSVFX A NADERER [facility]: 10-26-2024 End: 05-85-1657Vrefcfvnam hospital visit by physicianLucasral Murali Kebede Mc Work Phone: RadiologyComment on above:Radiation-induced pulmonary fibrosis (HCC) [J70.1]Start: 10-25-2024 End: 86-15-4230Lcwkvbthn encounterReshante Chicas RN Work Phone: Hematology/OncologyComment on above:Care Coordination (Lung Pain)Start: 10-24-2024 End: 33-27-9633Isulmi flowsheetMarshall Brink PTANOMS [facility] Start: 10-24-2024 End: 47-20-9998Ahsoyv flowsheetMarshall Brink PTAN[facility] Start: 10-24-2024 End: 37-60-6590xewvtzugxrZdhafbug Brink PTANOMS Tone Physical TherapyComment on above:Trochanteric bursitis of right hip (Primary Dx)Start: 10-17-2024 End: 09-62-4180Kqakfl Aleisha Miranda MD Work Phone: noMS CWM FMStart: 10-17-2024 End: 47-91-5110Cjfdadsarah Miranda MD Work Phone: noMS CWM FMStart: 10-17-2024 End: 65-23-2777snvnbithowSxaydzd Kelbley PTANOMS Tone Physical TherapyComment on above:Trochanteric bursitis of right hip (Primary Dx)Start: 10-17-2024 End: 40-07-3188mbxsurcnmcEWIS NADERERNot AvailableStart: 10-17-2024 End: 67-28-9429Wczyvr outpatient visit 25 minutesDick Miranda MD Work Phone: [facility] FMComment on above:Essential hypertension (Primary Dx); Chronic obstructive pulmonary disease, unspecified COPD type (HCC); Chemotherapy-induced neuropathy (HCC); 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); Primary insomnia; Trochanteric bursitis of right hipStart: 10-07-2024 End: 07-60-7334FgryajNxgvpTheresa MCGOVERN Work Phone: [facility] Internal MedicineComment on above:Essential hypertension; Bilateral carotid artery stenosis; Occlusive disease, arterialStart: 10-01-2024 End: 94-45-0529Emvauq flowsheetArnulfo Sonia PICKARDALANNAH [facility] Start: 10-01-2024 End: 51-51-5943Axukpp flowsNona Sonia PICKARDALANNAHMS [facility] Start: 10-01-2024 End: 43-63-0720bsxgguezgkEjevqqv Sonia PICKARDALANNAH Tone Physical TherapyComment on above:Trochanteric bursitis of right hip (Primary Dx)Start: 09-27-2024 End: 67-72-8064Osecog flowsNona Wang NEERAJALANNAH CI PTStart: 09-27-2024 End: 29-42-3173Bkxcus flowsNona Wang NEERAJALANNAH CI PTStart: 09-27-2024 End: 38-03-4577zlhrernyaoBefkanf Lawrence PTANOMS CI PTComment on above: Trochanteric bursitis of right hip (Primary Dx)Start: 09-26-2024 End: 07-83-5129Vlbkmz outpatient visit 25 minutesGary Owen MD Work Phone: [facility] CardiologyComment on above: Essential hypertension (Primary Dx)Start: 09-26-2024 End: 51-51-9691fkuckgcobsCMOZZZUVRGW O NKADIProMedica Rockaway Park HospitalStart: 09-25-2024 End: 40-80-3795Eomycebwd encounterLisa Ariana CMAProMedica Physicians Cardiology Start: 09-24-2024 End: 87-25-5681Pwvuge flowsNona Wang PTANOMS CI PTStart: 09-24-2024 End: 43-15-9040Lszruq flowsheetArnulfo Wang PTANOMS CI PTStart: 09-24-2024 End: 21-14-3633tfbpzjukblYyqifin Lawrence PTANOMS CI PTComment on above: Trochanteric bursitis of right hip (Primary Dx)Start: 09-21-2024 End: 74-20-3284Glwlgo flowsheetMelcecilia Mayes PTANOMS CI PTStart: 09-21-2024 End: 28-81-6152Xpixbr flowsheetMelcecilia Mayes PTANOMS CI PTStart: 09-21-2024 End: 43-38-0164kqpcodovrcCjxmrao Kelbley PTANOMS CI PTComment on above: Trochanteric bursitis of right hip (Primary Dx)Start: 09-20-2024 End: 88-68-2929Gyxvza-up encounterMinvinny Donovan PA-C Work Phone: Hematology/OncologyComment on above:Care Coordination (Lab Results)Start: 09-19-2024 End: 29-29-3479Ktclxyqzw Result EncounterGeneric External Data ProviderNOMS External Department UnsolicitedStart: 09-19-2024 End: 36-54-1115Nfenunwvm Result EncounterGeneric External Data ProviderNOMS External Department UnsolicitedStart: 09-19-2024 End: 37-52-2553BmtxyhHhmn Naderer MD Work Phone: noms CWM FMComment on above:Primary insomnia; DDD (degenerative disc disease), cervicalCare Coordination (Fatigue)Start: 09-18-2024 End: 19-07-5427cruhkzgrlsMkspmxhd Brink PTANOMS CI PTComment on above: Trochanteric bursitis of right hip (Primary Dx)Start: 09-18-2024 End: 51-90-6361Srrsxj flowsheetAnmol Parker PTANOMS CI PTStart: 09-18-2024 End: 83-93-7923Uokuvu flowsheetMarcharlotte Parker PTANOMS CI PTStart: 09-13-2024 End: 22-25-4037Eypzqx flowsheetSammantha Dumont PTNOMS CI PTStart: 09-13-2024 End: 55-87-6420Oxrtox flowsheetSammantha Dumont PTNOMS CI PTStart: 09-13-2024 End: 78-33-7690hpsmvycjmvRhlwbrvqr Dumont PTNOMS CI PTComment on above: Trochanteric bursitis of right hip (Primary Dx)Start: 08-31-2024 End: 98-67-3153Pdsvmru encounter Espinoza Hoang MD Work Phone: Radiation OncologyComment on above:Malignant neoplasm of upper lobe of left lung (HCC) (Primary Dx)Start: 08-31-2024 End: 39-24-4823nbovatvfxqEWNE RAJANFacility:[facility] Hospitaltart: 85-15-8865Ite-patient / Non-visitCaitrajesh [facility]OHNS[facility] Work Phone: Start: 08-16-2024 End: 17-79-5302Gfyzyx outpatient visit 25 minutesLo Hancock MD Work [...] Other specified disorders of thyroidStart: 08-16-2024 End: 19-63-2990sakosfprtpXGDBS ABHYANKARFacility:[facility] Hospitaltart: 08-10-2024 End: 79-62-7738Geduubflk encounterGuillermina Rodriguez RN Work Phone: Hematology/OncologyComment on above:Care Coordination (MRI results)Start: 08-08-2024 End: 75-53-2977vkmfffkjwwDBSFG MARIBETHERNot AvailableStart: 08-07-2024 End: 70-37-8950Csfcznmnf encounterNoemy Chicas RN Work Phone: Hematology/OncologyComment on above:Care Coordination (PET Results)DDD (degenerative disc disease), cervicalStart: 08-06-2024 End: 05-29-4114Wnyitj outpatient visit [address] [place], [place] [address]rachel Herrera [facility] Work Phone: ProThe [facility] Centerca [facility] Vascular [place]remontComment on above: Internal carotid artery stenosis, bilateral; Occlusive disease, arterial; 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: 08-03-2024 End: 00-85-2923Xnbglkwnpk hospital visit by physicianArrival Time Radiology Work Phone: Radiology Pet CTComment on above:Syncope and collapse [R55]Start: 07-31-2024 End: 51-36-2748Pzdddjtrw department patient visitMARSSM Rehab HospitalStart: 07-31-2024 End: 37-12-2623Oldaaeund encounterNoemy Chicas RN Work Phone: Hematology/OncologyComment on above:Care Coordination (Headache & Fatigue)Start: 07-26-2024 End: 65-95-0831gkduodwaxrWYEZD A PETITTINot AvailableStart: 07-26-2024 End: 08-54-1353Tzjaan flowsheetGrant T King DISH MACHINE OPERATOR Work Phone: noms FB ORTHOPAEDICSStart: 07-26-2024 End: 59-41-8841Sijfrl flowsheetRobert Ever Luiza DISH MACHINE OPERATOR Work Phone: noms FB ORTHOPAEDICSStart: 07-26-2024 End: 10-99-4055ewfcnrhqnrXWWQY Ever Ravinder AvailableStart: 07-20-2024 End: 26-04-0956Tdjagrujlf hospital visit by physicianArrival Time Radiology Work Phone: Radiology Pet CTComment on above:Syncope and collapse [R55]Start: 07-20-2024 End: 09-16-1007Imagktilp Result EncounterGeneric External Data ProviderNOMS External Department UnsolicitedStart: 07-20-2024 End: 67-25-6822Zpfwrwjzx Result EncounterGeneric External Data ProviderNOMS External Department UnsolicitedStart: 07-20-2024 End: 06-04-1683Lpljqjanz encounterHoljessica Mejia APRN.CNP Work Phone: Cancer Appts MCComment on above:Referral Information (Dermatology)Start: 07-20-2024 End: 12-97-6560Amrwtbs encounter procedureMichelle Mejia APRN.CNP Work Phone: Hematology/OncologyStart: 07-20-2024 End: 45-67-6063xsuavubednKpdgr [address] [place] Work Phone: Hematology/OncologyComment on above:Malignant neoplasm of upper lobe of left lung (HCC) (Primary Dx)Malignant neoplasm of upper lobe of left lung (HCC) (Primary Dx); Syncope and collapseStart: 07-11-2024 End: 84-16-5957Eanuot Ludmila Miranda MD Work Phone: noms CWM FMComment on above:Chemotherapy-induced neuropathy (CMS/HCC)Start: 07-09-2024 End: 09-56-1858FzbquvDczrpht Sessler RN Work Phone: Hematology/OncologyComment on above:Refill Request (Ritalin)Start: 06-29-2024 End: 11-02-2079Dxbiaubwy Result EncounterGeneric External Data ProviderNOMS External Department UnsolicitedStart: 06-29-2024 End: 17-83-7028Tbqtivxtr Result EncounterGeneric External Data ProviderNOMS External Department UnsolicitedStart: 06-29-2024 End: 90-99-8055hdhnnsvbzpSJKKF ABHYANKARFacility:[facility]tart: 06-26-2024 End: 01-33-8611ZbptqrVbem Naderer MD Work Phone: NOK[facility] FMComment on above:DDD (degenerative disc disease), cervicalStart: 06-15-2024 End: 47-33-0213sxjevhneqrUKVF RAJANFacility:[facility] Hospitaltart: 06-15-2024 End: 78-37-7095Bdyvmcf encounter procedureSryan Hoang MD Work Phone: Radiation OncologyComment on above:Malignant neoplasm of upper lobe of left lung (HCC) (Primary Dx)Start: 06-15-2024 End: 56-06-4560Puhhbgsax Result EncounterGeneric External Data ProviderNOMS External Department UnsolicitedStart: 06-15-2024 End: 70-41-6717Eygjiwepg Result EncounterGeneric External Data ProviderNOMS External Department UnsolicitedStart: 06-15-2024 End: 41-92-0999Vnefaqr encounter procedureJoey Scott APRN.CNP Work Phone: palliative MedicineComment on above:Palliative care by specialist (Primary Dx); Thymoma; Neuropathy due to chemotherapeutic drug (HCC); Anxiety; 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 condition; Malignant neoplasm of upper lobe of left lung (HCC); Cancer of trachea, bronchus, and lung (HCC); Nausea; Paraneoplastic neuropathy (HCC)Start: 06-15-2024 End: 31-52-3624qdwtldncyxXusoh [address] [place] Work Phone: Hematology/OncologyComment on above:Malignant neoplasm of upper lobe of left lung (HCC) (Primary Dx)Malignant neoplasm of lung, unspecified laterality, unspecified part of lung (HCC) (Primary Dx)Start: 06-13-2024 End: 56-67-6119wcplyssugfOazbblfcca Avery RD Work Phone: Nutrition TherapyStart: 06-13-2024 End: 30-65-0012Kefnvvqlc therapyJacqueline Avery RD Work Phone: Nutrition TherapyComment on above:Nutrition Telephone Start: 06-05-2024 End: 17-42-4557RrntnxMmtl Naderer MD Work Phone: NOOL CWM FMComment on above:KIKO (generalized anxiety disorder) (CMS/HCC)Start: 05-30-2024 End: 15-34-0881Ztainupze encounterSryan Hoang MD Work Phone: Radiation OncologyComment on above:Future Appointment Start: 05-18-2024 End: 21-50-0524Umsojtfns encounterShilpi Centeno RNHematology/OncologyComment on above:Referral RequestStart: 05-18-2024 End: 70-90-6112Rskome outpatient visit 25 minutesLo Hancock MD Work Phone: Hematology/OncologyComment on above:Malaise and fatigue; Attention deficit hyperactivity disorder (ADHD), combined typeStart: 05-18-2024 End: 46-55-3410xgpunlbpuiNekhd [address] Work Phone: Hematology/OncologyComment on above:Malignant neoplasm of upper lobe of left lung (HCC) (Primary Dx)Start: 05-11-2024 End: 54-12-5657gzjjooqwdmHXFO RAJANFacility:[facility] Hospitaltart: 05-11-2024 End: 98-67-5725Hstzvqi encounter procedureSryan Hoang MD Work Phone: Radiation OncologyStart: 05-11-2024 End: 23-88-1217Bfrrbmtsf Oncology NoteSryan Hoang MD Work Phone: Radiation OncologyComment on above:Completion Note Start: 05-09-2024 End: 65-56-3339Cklvxec encounter procedureMihai Woody LMT Work Phone: Hematology/OncologyComment on above:Muscle soreness (Primary Dx)Start: 05-09-2024 End: 03-01-6610wuowjxmcifZEFLG ABHYANKARFacility:[facility] Hospitaltart: 05-09-2024 End: 45-32-0237gitpnncqwlJVND RAJANFacility:[facility] Hospitaltart: 05-07-2024 End: 63-94-5820hxycdqhlbaIQAA DEFacility:[facility] Hospitaltart: 05-04-2024 End: 57-49-6350sidaogmlntIFJO DEFacility:[facility]tart: 05-03-2024 End: 55-36-9528Colxfvr encounter procedureMihai Woody LMT Work Phone: Hematology/OncologyComment on above:Muscle soreness (Primary Dx)Start: 05-02-2024 End: 09-85-1215Hduiwndrx Result EncounterGeneric External Data ProviderNOMS External Department UnsolicitedStart: 05-02-2024 End: 93-75-0060Pplqrgged Result EncounterGeneric External Data ProviderNOMS External Department UnsolicitedStart: 05-02-2024 End: 42-99-4409Vblwgrgmu encounterSryan Hoang MD Work Phone: Radiation OncologyComment on above:Patient Update; AppointmentStart: 05-02-2024 End: 00-03-2830Sskgcdd encounter procedureSryan Hoang MD Work Phone: Radiation OncologyComment on above:Malignant neoplasm of upper lobe of left lung (HCC) (Primary Dx)Start: 05-02-2024 End: 25-63-0536jpyzyefygxTQZUC ABHYANKARFacility:[facility] Hospitaltart: 04-23-2024 End: 96-00-4482Pjromw Ashley King NP Work Phone: NORX FB ORTHOPAEDICSStart: 04-23-2024 End: 39-72-9707Veyrqk Ashley King NP Work Phone: NORQ FB ORTHOPAEDICSStart: 04-23-2024 End: 87-27-3217gkouuvzhkaZTGAY T OLSENNot AvailableStart: 04-23-2024 End: 87-00-9686Xszfkt outpatient visit 25 minutesRobert King NP Work Phone: noms FB ORTHOPAEDICSComment on above:Impingement syndrome of right shoulder (Primary Dx); Acute pain of right shoulder; Acute pain of left shoulder; Impingement syndrome of left shoulderStart: 04-18-2024 End: 57-94-5216Xztwfx flowsShamir Miranda MD Work Phone: noms CWM FMStart: 04-18-2024 End: 87-71-7967Zpeoeh Aleisha Miranda MD Work Phone: noms CWM FMStart: 04-18-2024 End: 05-89-1275Tjttnji encounter procedureDick Miranda MD Work Phone: [facility] Work Phone: Start: 04-18-2024 End: 63-21-9854Hfijqm follow up visit related to original Lanie Miranda MD Work Phone: noms CW FMComment on above:Medicare annual wellness visit, subsequent (Primary Dx); Seborrheic dermatitis; 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); Chronic obstructive pulmonary disease, unspecified COPD type (CMS/HCC)Start: 04-18-2024 End: 14-57-7383eskqaeuuspWUXA NADERERNot AvailableStart: 04-15-2024 End: 49-42-3422UexdxuHrwxpsSom MCGOVERN Work Phone: [facility] Internal MedicineComment on above:Essential hypertension; Bilateral carotid artery stenosis; Occlusive disease, arterialStart: 04-11-2024 End: 77-64-0530Qdjawwf encounter procedureCcf ProviderCincinnati Va [facility] Center DepartmentStart: 04-11-2024 End: 02-24-1987Bozuvtlas Oncology NoteSryan Hoang MD Work Phone: Radiation OncologyComment on above:Simulation Note Treatment PlanningStart: 04-11-2024 End: 87-95-3129Rzyaox outpatient visit 25 minutesLo Hancock MD Work Phone: Hematology/OncologyComment on above:Malignant neoplasm of upper lobe of left lung (HCC) (Primary Dx); Abnormal blood chemistry; Malaise and fatigueStart: 04-11-2024 End: 10-00-6780Lzmrvy WorkLorsheyla VILLAWHematology/OncologyComment on above: Patient EducationMalignant neoplasm of upper lobe of left lung (HCC) (Primary Dx)Start: 04-09-2024 End: 23-93-6168Xwgoua outpatient visit 25 minutesBina Sharon Astrid DO Work Phone: [facility] Vascular [place]remontComment on above: Bilateral carotid artery stenosis (Primary Dx); PAD (peripheral artery disease) ([facility]-HCC)Start: 04-09-2024 End: 66-10-3176xdmkftdvvaNBNW [facility] PPGStart: 04-09-2024 End: 84-96-1993dmchwgxujuJNBBGX G AFRIDIProMedica Rockaway Park HospitalStart: 04-03-2024 End: 37-54-3072Ewebwpkbj Result EncounterGeneric External Data ProviderNOMS External Department UnsolicitedStart: 04-03-2024 End: 72-18-4311Vqwsnbgxw Result EncounterGeneric External Data ProviderNOMS External Department UnsolicitedStart: 04-03-2024 End: 70-86-4055mrkodgocusCKII RAJSILVIAFacility:[facility] Hospitaltart: 04-03-2024 End: 72-94-5820Fyburpmvdj hospital visit by physicianArrival Time Radiology Work Phone: Radiology Pet CTComment on above:Malignant neoplasm of unspecified part of unspecified bronchus or lung (HCC) [C34.90]Start: 04-02-2024 End: 05-63-5388CigttcSqkg Naderer MD Work Phone: noms CWM FMComment on above:DDD (degenerative disc disease), cervicalStart: 03-23-2024 End: 65-71-6678qbvushozxtLYGJBWOY J BUNDRIDGEFacility:[facility] Start: 03-23-2024 End: 32-82-2033Pheqtha encounter procedureJoey Scott APRN.MAPPING SPECIALIST Work Phone: palliative MedicineComment on above:Palliative care by specialist (Primary Dx); Malignant neoplasm of upper lobe of left lung (HCC); Nausea; Anxiety; Cancer of trachea, bronchus, and lung (HCC); Paraneoplastic neuropathy (HCC); 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 conditionStart: 03-13-2024 End: 33-69-5960Tfojdpiyg encounterReshante Chicas RN Work Phone: Hematology/OncologyComment on above:Care Coordination (Treatment Decision)Start: 03-12-2024 End: 44-98-4341jtdkphdfgfJTLO RAJANFacility:[facility] Hospitaltart: 03-12-2024 End: 67-36-4715Mqqcrex encounter Espinoza Hoang MD Work Phone: Radiation OncologyComment on above:Malignant neoplasm of unspecified part of unspecified bronchus or lung (HCC) (Primary Dx); Malignant neoplasm of upper lobe of left lung (HCC)Start: 03-08-2024 End: 98-02-4234Xprirp Ashley King NP Work Phone: noms FB ORTHOPAEDICSStart: 03-08-2024 End: 29-21-7014Hupynssarah King NP Work Phone: noms FB ORTHOPAEDICSStart: 03-08-2024 End: 02-16-6281dxyoqeyiexTLTRC T OLSENNot AvailableStart: 03-08-2024 End: 04-59-9244Pwmtux outpatient visit 25 minutesRobert King NP Work Phone: noms FB ORTHOPAEDICSComment on above:Trochanteric bursitis of right hip (Primary Dx); Right hip painStart: 03-05-2024 End: 81-77-0141Qlqgbe outpatient new 45 minutesSociera Moreira MD Work Phone: [facility] CardiologyComment on above: Essential hypertension (Primary Dx); Malignant neoplasm of upper lobe of left lung (CMS-HCC); Mixed hyperlipidemiaStart: 03-05-2024 End: 61-03-3671lnluomimwlZELOE Cosme OWENChillicothe Hospitaltart: 03-02-2024 End: 84-22-2773Jllwlbfcg encounterLisa Ariana OLIVOUniversity Hospitals [facility] Physicians Cardiology Start: 21-63-3063Ciudcfkvt for other preprocedural examinationScripps Mercy Hospitaltart: 02-27-2024 End: 60-72-6416qdzjhazgewVDAXSalem Regional Medical Centertart: 02-27-2024 End: 13-78-5384zpalzhwzmzSHTXPUX WUDEL [facility]: 02-24-2024 End: 72-18-9309Rfchas outpatient visit 40 minutesLo Hancock MD Work Phone: Hematology/OncologyComment on above:Malignant neoplasm of lung, unspecified laterality, unspecified part of lung (HCC) (Primary Dx); Abnormal blood chemistryStart: 02-24-2024 End: 56-09-3697itnjmkqufrAHQDV ABHYJANIARFacility:St. [facility] Hospitaltart: 02-24-2024 End: 67-94-1480Pdrgozfuz Result EncounterGeneric External Data ProviderNOMS External Department UnsolicitedStart: 02-24-2024 End: 19-95-6449Fygtudfds Result EncounterGeneric External Data ProviderNOMS External Department UnsolicitedStart: 02-23-2024 End: 81-07-6439HfyhkzJfazvrSom Villasenor APRN-MAPPING SPECIALIST Work Phone: [facility] Physicians Internal MedicineComment on above:Essential hypertension; Bilateral carotid artery stenosis; Occlusive disease, arterialStart: 02-20-2024 End: 09-51-3437UihihzMabj Naderer MD Work Phone: NOMT CWM FMComment on above:DDD (degenerative disc disease), cervicalCare Coordination (Fatigue; Body Aches)Start: 02-17-2024 End: 95-55-4367nfwjgaghkkIDPDCVE WUDEL [facility] HospitalStart: 60-50-3145Sjzxhqlak for preprocedural cardiovascular examinationGERALD CalderonKaiser Permanente Medical Centertart: 02-14-2024 End: 01-10-9434Rxtwql Primitivo Oreilly MD Work Phone: oracic SurgeryComment on above:Preoperative testing (Primary Dx)Start: 02-14-2024 End: 37-97-6077Iogqzsk encounter Girish Oreilly MD Work Phone: [facility] Hospitaltart: 02-13-2024 End: 86-06-0210Bfvewy outpatient visit 25 minutesSociera Moreira MD Work Phone: [facility] Vascular [place]ontComment on above: Occlusive disease, arterial (Primary Dx); Right internal carotid occlusion; Malignant neoplasm of upper lobe of left lung (CMS-HCC)Start: 02-13-2024 End: 97-86-3659lytdftjnqhFGOQVV G AFRIDVibra Long Term Acute Care HospitalStart: 02-08-2024 End: 90-34-5185Eplahlq encounter procedureSavanah Oreilly MD Work Phone: [facility] SurgeryComment on above:Encounter for preoperative vascular examination (Primary Dx); Malignant neoplasm of upper lobe of left lung (HCC); Preoperative cardiovascular examination; Preoperative testingStart: 02-08-2024 End: 07-50-1839Qfsmhph encounter Girish Oreilly MD Work Phone: [facility] Hospitaltart: 02-08-2024 End: 92-74-2063Qbesncuisgui Jaswinder Oreilly MD Work Phone: [facility] Hospitaltart: 02-08-2024 End: 99-27-0760mikmtqvseiSSVVYHV WUDELFacility:[facility] Hospitaltart: 30-25-7440Jfnqpjtpf for other preprocedural examinationLEMADDY [facility] CenterStart: 51-07-7203Asmhfacqa for preprocedural cardiovascular examinationLEONAJOSE J [facility] CenterStart: 01-26-2024 End: 60-52-3007Rmxbenogp encounterNoemy Chicas RN Work Phone: Hematology/OncologyComment on above:Care Coordination (CT Results)Start: 01-25-2024 End: 50-30-3377Vbdtucwej Result EncounterGeneric External Data ProviderNOMS External Department UnsolicitedStart: 01-25-2024 End: 02-31-3982Fpgxyghut Result EncounterGeneric External Data ProviderNOMS External Department UnsolicitedStart: 01-25-2024 End: 55-80-3827opiiegctvrVPFBB ABHYANKARFacility:St. [facility] Hospitaltart: 01-25-2024 End: 46-43-1657Rgimguwsza hospital visit by physicianArrival Time Radiology Work Phone: Radiology Pet CTComment on above:Malignant neoplasm of lung, unspecified laterality, unspecified part of lung (HCC) [C34.90]Start: 01-18-2024 End: 43-84-8197Gvkthmdhp encounterNoemy Chicas RN Work Phone: Hematology/OncologyComment on above:Care Coordination (Question)Start: 01-17-2024 End: 23-29-7988Gceliz Aleisha Miranda MD Work Phone: noms CWM FMStart: 01-17-2024 End: 04-99-1918Dhdpluyasmine Miranda MD Work Phone: noms CWM FMStart: 01-17-2024 End: 19-79-3098rcegfcorhzRVMB NADERERNot AvailableStart: 01-17-2024 End: 63-95-2473Uaratv outpatient visit 25 minutesDick Miranda MD Work Phone: noMS CWM FMComment on above:Essential hypertension (CMS/HCC) (Primary Dx); Chemotherapy-induced neuropathy (CMS/HCC); Chronic obstructive pulmonary disease, unspecified COPD type (CMS/HCC); Encounter for long-term (current) use of medications; PAD (peripheral artery disease) (CMS/HCC); DDD (degenerative disc disease), cervical; Hypothyroidism, postradioiodine therapy (CMS/HCC)Start: 01-03-2024 End: 68-47-5961Pdcrwe flowseGo Holland DO Work Phone: noms CI ORTHOPAEDICSStart: 01-03-2024 End: 14-62-0955Aafweg flowsGeo Holland DO Work Phone: noms CI ORTHOPAEDICSStart: 01-03-2024 End: 64-07-3872Qvxmtpdei encounterNoemy Chicas RN Work Phone: Hematology/OncologyComment on above:Care Coordination (Medication Question)Care Coordination (Letter Request)Start: 01-03-2024 End: 11-43-4306Oukthi outpatient visit 10 minutesErin Holland DO Work Phone: noms CI ORTHOPAEDICSComment on above:Right hip pain (Primary Dx); Trochanteric bursitis of right hip; Tear of right gluteus minimus tendon, subsequent encounterStart: 01-03-2024 End: 62-25-4642kynmxpzfigODCCB A HUDDLESTONNot AvailableStart: 12-29-2023 End: 40-20-4483Lfqkhf Aleisha Miranda MD Work Phone: noms CWM FMStart: 12-29-2023 End: 10-06-2716Nfbubk Aleisha Miranda MD Work Phone: noms CWM FMStart: 12-29-2023 End: 55-24-0120Wizipqooj encounterNoemy Chicas RN Work Phone: Hematology/OncologyComment on above:Care Coordination (Medication & Vaccine Question)Start: 12-29-2023 End: 06-90-6948Tdaddz outpatient visit 25 minutesDick Miranda MD Work Phone: noms CWM FMComment on above: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) (Primary Dx); PAD (peripheral artery disease) (CMS/HCC); Chemotherapy-induced neuropathy (CMS/HCC); Primary insomniaStart: 12-29-2023 End: 01-31-9205iwmercxkdtXXXI NADERERNot AvailableStart: 12-28-2023 End: 83-79-5171Bkhassbzg Result EncounterGeneric External Data ProviderNOMS External Department UnsolicitedStart: 12-28-2023 End: 90-62-9904Gausldvci Result EncounterGeneric External Data ProviderNOMS External Department UnsolicitedStart: 12-28-2023 End: 50-37-8019Pibdws outpatient visit 40 minutesLo Hancock MD Work Phone: Hematology/OncologyComment on above:Malignant neoplasm of upper lobe of left lung (HCC) (Primary Dx); Malaise and fatigue; Attention deficit hyperactivity disorder (ADHD), combined type; Malignant neoplasm of lung, unspecified laterality, unspecified part of lung (HCC)Start: 12-28-2023 End: 11-91-7370xipsyjqyouTouzk Carmella Kebede Work Phone: Hematology/OncologyComment on above:Malignant neoplasm of upper lobe of left lung (HCC) (Primary Dx)Prescription RefillsStart: 12-26-2023 End: 60-72-6003kjdrxasavyYqsvzbhif L Mitchell RNMobile ServicesComment on above: Palliative Medicine Introduction and Contact NumbersStart: 12-26-2023 End: 83-83-1998W-mail encounter from Tyrone Castillo ServicesStart: 12-23-2023 End: 30-55-8249Qerjcezky encounterNoemy Chicas RN Work Phone: Hematology/OncologyComment on above:Care Coordination (Numbness/Tingling; Lab Request)Start: 12-23-2023 End: 83-34-8405akqqifdamnKGCNRXDV J BUNDRIDGEFacility:[facility] Start: 12-23-2023 End: 72-90-2593Rlxibqy encounter procedureJoey Scott APRN.CNP Work Phone: palliative MedicineComment on above:Palliative care by specialist (Primary Dx); Cancer of trachea, bronchus, and lung (HCC); Malignant neoplasm of upper lobe of left lung (HCC); Paraneoplastic neuropathy (HCC); Nausea; 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 condition; AnxietyStart: 12-19-2023 End: 05-68-6096OfuiqgQili Naderer MD Work Phone: noms CWM FMComment on above:DDD (degenerative disc disease), cervicalStart: 12-07-2023 End: 44-39-7050Rcwehoxgu Result EncounterGeneric External Data ProviderNOMS External Department UnsolicitedStart: 12-07-2023 End: 17-09-6883Wtxcagydo Result EncounterGeneric External Data ProviderNOMS External Department UnsolicitedStart: 12-07-2023 End: 95-31-2365qbuuurudtsSwbkm 3 Tolu Work Phone: Hematology/OncologyComment on above:Malignant neoplasm of upper lobe of left lung (HCC) (Primary Dx)Start: 12-07-2023 End: 90-84-9826Rwkdoy outpatient visit 25 minutesLo Hancock MD Work Phone: Hematology/OncologyComment on above:Malignant neoplasm of upper lobe of left lung (HCC) (Primary Dx); ImmunotherapyStart: 11-29-2023 End: 29-50-1498Kdzduzmuf encounterReshante Chicas RN Work Phone: Hematology/OncologyComment on above:Care Coordination (Treatment Side Effects)Care Coordination (Dental Question)Start: 11-24-2023 End: 83-71-1365Tayqfsndd Result EncounterGeneric External Data ProviderNOMS External Department UnsolicitedStart: 11-24-2023 End: 72-80-0772Idbiidxxq Result EncounterGeneric External Data ProviderNOMS External Department UnsolicitedStart: 11-24-2023 End: 46-98-3879jgimgbhkbbQwq/[place] Tolu Work Phone: Hematology/OncologyComment on above:Malignant neoplasm of upper lobe of left lung (HCC) (Primary Dx)Start: 11-21-2023 End: 05-49-1630Pbiszlipq encounterNoemy Chicas RN Work Phone: Hematology/OncologyComment on above:Care Coordination (C1D1 Post Treatment Call)Start: 11-18-2023 End: 82-32-3169HwgtgmFplg Naderer MD Work Phone: noms CWM FMComment on above:DDD (degenerative disc disease), cervicalStart: 11-16-2023 End: 98-74-9838Sclnyaaql Result EncounterGeneric External Data ProviderNOMS External Department UnsolicitedStart: 11-16-2023 End: 39-72-9311Ddiixrrqz Result EncounterGeneric External Data ProviderNOMS External Department UnsolicitedStart: 11-16-2023 End: 63-56-4786Bzazchooi encounterFinancial Navigator John Paul Work Phone: Hematology/OncologyComment on above:Benefits InvestigationStart: 11-16-2023 End: 94-96-1029slrusmwqcuMalhl 3 [place] Work Phone: Hematology/OncologyComment on above:Malignant neoplasm of upper lobe of left lung (HCC) (Primary Dx)Start: 11-16-2023 End: 69-02-8617Cmzbts outpatient visit 25 minutesLo Hnacock MD Work Phone: Hematology/OncologyComment on above:Malignant neoplasm of upper lobe of left lung (HCC) (Primary Dx)Start: 11-15-2023 End: 81-49-5116bstdainddjLkyvnbs Sessler RN Work Phone: Hematology/OncologyComment on above:First Time Treatment Education (Nivolumab, Paclitaxel, & Carboplatin)Start: 11-15-2023 End: 41-22-6437Snhhdrmiw encounterNoemy Chicas RN Work Phone: Hematology/OncologyComment on above:Care Coordination (Nutrition Referral)Lab OrdersStart: 11-14-2023 End: 86-72-3561Qskkbhkye encounterNoemy Chicas RN Work Phone: Hematology/OncologyComment on above:Care Coordination (Antiemetics)Start: 11-11-2023 End: 18-60-1915Biwlrhidz encounterNoemy Chicas RN Work Phone: Hematology/OncologyComment on above:Care Coordination (Treatment Planning)Start: 11-09-2023 End: 31-19-5616Ekkcekf encounter procedureSavanah Oreilly MD Work Phone: Thoracic SurgeryComment on above:Malignant neoplasm of upper lobe of left lung (HCC) (Primary Dx)Start: 11-03-2023 End: 40-02-2740rdgazkefstGBITIEastern Plumas District Hospitaltart: 11-01-2023 End: 27-64-0564Dpcfdixul Result EncounterGeneric External Data ProviderNOMS External Department UnsolicitedStart: 11-01-2023 End: 46-10-1128Trkmygaif Result EncounterGeneric External Data ProviderNOMS External Department UnsolicitedStart: 11-01-2023 End: 78-63-5410Uzeyxsqua encounterJotatyana Craig MD Work Phone: Pulmonary MedicineStart: 11-01-2023 End: 79-72-8693obwbjwpbiyNxf Rezakhani Research CoordinatorPulmonary Medicine Comment on above:Informed ConsentStart: 10-28-2023 End: 62-35-1158yzymmmpgjgGtnaqoee Keely Lesa RNPulmonologyComment on above:another medication to holdStart: 10-28-2023 End: 16-98-9672H-mail encounter from caregiverTommie Mcfadden RNPmonology Start: 10-28-2023 End: 37-76-4809Ebuhzrzyf to same day surgery centerNancy Elizondo APRN.CNP Work Phone: Pulmonology [place] FHCComment on above: Lung mass (Primary Dx); Chronic obstructive pulmonary disease, unspecified COPD type (HCC); Chest pain, unspecified type; Hypertension, unspecified type; Hx of neck surgery; TIA (transient ischemic attack); Other chronic pain; Former smoker; PAD (peripheral artery disease) (HCC)Start: 10-28-2023 End: 27-14-2607Peimfphhzhwl consultation with patientFrances Sharon Elizondo APRN.CNP Work Phone: [facility]tart: 10-27-2023 End: 68-41-4641XodavwFvxf Karyn LAGUNAS Work Phone: noms CWM FMComment on above:DDD (degenerative disc disease), cervical (Primary Dx); Primary insomniaStart: 10-26-2023 End: 19-21-3409Ntnczatlciies examination donePaHCA [facility] 2 Work Phone: [facility] Work Phone: Start: 10-26-2023 End: 47-38-5450JNUKakx Campbell 2 Work Phone: Pre AnesthesiaComment on above:Pre-op evaluation (Primary Dx); Chronic obstructive pulmonary disease, unspecified COPD type ([facility]); Cigarette smoker; Hypothyroidism, postradioiodine therapy; TIA (transient ischemic attack); KIKO (generalized anxiety disorder); Essential hypertension; Mixed hyperlipidemia; PAD (peripheral artery disease) (HCC); Chronic pain syndrome; Prediabetes; History of craniotomyIncreased SOB following Spiriva useStart: 10-25-2023 End: 73-90-4845ontmreqovaDudvsalo K Heugel RNPulmonologyComment on above:hold medications until after procedureStart: 10-25-2023 End: 00-70-0689Ifqnxxlmfldgw Deanne Aguiar [facility] Center - Medical OncologyStart: 10-25-2023 End: 06-24-9219B-mail encounter from caregiverTommie Bolanosmonrafaela Start: 10-25-2023 End: 42-50-2812Bvpconl evaluation of patient and reportMa Nurse John Paul Marte Work Phone: Hematology/OncologyComment on above:Pre-op exam (Primary Dx); Lung noduleStart: 10-25-2023 End: 92-37-2007Krulgdmvwoqcz examination doneMa Nurse John Paul Marte Work Phone: [facility]tart: 10-24-2023 End: 87-74-9688igmsmpfscsAdhqgh C Cicenia MD Work Phone: PulmonologyComment on above:Bronchoscopy Scheduling Start: 10-24-2023 End: 38-12-7252Vxhrrkxhz encounterLo Hancock MD Work Phone: Cancer Appts MCComment on above:AppointmentQuestion Start: 10-22-2023 End: 44-75-7932EzwjzhXxxaca A Mullins INSPECTOR HEATING AND REFRIGERATION-MAPPING SPECIALIST Work Phone: [facility] Internal MedicineComment on above:Essential hypertension (Primary Dx); Bilateral carotid artery stenosis; Occlusive disease, arterialStart: 10-21-2023 End: 70-34-3258Tkxlpl outpatient new 60 Carey Hancock MD Work Phone: Hematology/OncologyComment on above:Malignant neoplasm of upper lobe of left lung (HCC) (Primary Dx)Start: 10-21-2023 End: 69-98-9044tvhbblfzzdGSQVX N [facility] Andersontart: 10-20-2023 Chart abstractingLo Hancock MD Work Phone: Hematology/OncologyStart: 10-20-2023 End: 13-41-0386Tleckr outpatient new 60 minutesEstefany Lang DO Work Phone: [facility] Pulmonary/Sleep MedicineComment on above:Chronic obstructive pulmonary disease, unspecified COPD type ([facility]-HCC) (Primary Dx); Lung massStart: 10-20-2023 End: 76-75-5296fkrrfodczuGKRXPASpringhill Medical Center Ambulatory PPGStart: 10-17-2023 End: 74-34-0606kbdfpdlgylLUMAB N [facility] Andersontart: 10-13-2023 End: 13-64-7482Rxozay outpatient new 60 minutesSandyng Amada Abdi MD Work Phone: Kiara Aguiar [facility] - Medical OncologyComment on above:Squamous carcinoma of lung, left (CMS-HCC) (Primary Dx); Lung massStart: 10-13-2023 End: 16-65-3192fotqvjirekXUEUV N XIAProMedSaint Louis University Hospital HospitalStart: 10-05-2023 End: 54-23-0015jmhrsgwoauYWEAAKC ROSTProSouthern [facility] HospitalStart: 10-05-2023 End: 22-26-0048domiygsqhbIUDFMA A MULLINSPPaulding County Hospital HospitalStart: 10-03-2023 End: 15-23-2091Jjalzu outpatient visit 40 minutesOlegario Moreira MD Work Phone: [facility] Vascular [place]Comment on above: Occlusive disease, arterial (Primary Dx); Right internal carotid occlusion; Bilateral carotid artery stenosis; 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)Start: 10-03-2023 End: 33-58-5423yxjxkjqhdnVURQUH [facility] Ambulatory PPGStart: 06-27-2023 End: 09-91-8888Nlsxos outpatient visit 25 minutesOlegario Moreira MD Work Phone: [facility]t VascularComment on above: Right internal carotid occlusion (Primary Dx); Occlusive disease, arterialStart: 04-20-2023 End: 93-59-6728Jygrgt outpatient new 45 minutesDick Miranda MD Work Phone: noms CWM FMComment on above:Essential hypertension (CMS/HCC) (Primary Dx); Degenerative lumbar spinal stenosis; DDD (degenerative disc disease), cervical; Benign prostatic hyperplasia with urinary hesitancy; PAD (peripheral artery disease) (CMS/HCC); Hypothyroidism, postradioiodine therapy ([facility]/HCC)Start: 03-14-2020 End: 95-30-2744Vosivph encounter procedureBasia VegaKindred Hospital - GreensboromarinoUC Health-XRay [facility] CampusStart: 01-24-2020 End: 60-18-6615Dccgvbu encounter procedureJOPRECIOUS VEGAFacility:M9Qfwlm: 10-12-2019 End: 68-04-3790Fsvqxou encounter procedureJOBINDU GAVINPLEFacility:P7Eerst: 16-10-1688Lexqqgc encounter procedureAajd McfarlaneFacility:[facility] Start: 26-37-7035Vqouqju encounter procedureMaroun Patti RayFacility:[id number] Procedures DateProcedureProcedure DetailPerforming ClinicianStart: 98-51-6872Lguurkjb total Dick Miranda MD Work Phone: Comment on above:Provided reference range is from 6-10 AM sample collection time.Cortisol Reference Range: 6-10 AM =4.8-19.5 ug/dL, 4- 8 PM = 2.5-11.9 ug/dLStart: 04-98-0490Fzfufmqr totalDick Miranda MD Work Phone: Comment on above:Provided reference range is from 6-10 AM sample collection time.Cortisol Reference Range: 6-10 AM =4.8-19.5 ug/dL, 4- 8 PM = 2.5-11.9 ug/dLStart: 04-53-6596Umx imaging ct attenuation skull base mid-thighLo Hancock MD Work Phone: Start: 11-09-2024 End: 16-07-6400Hhcwg count complete auto&auto difrntl wbcVivekeely Hancock MD Work Phone: Comtapq on above:Provided reference range is from 6-10 AM sample collection time.Cortisol Reference Range: 6-10 AM =4.8-19.5 ug/dL, 4- 8 PM = 2.5-11.9 ug/dLStart: 64-76-7424BI angiography of thoraxBasia Vega MD Work Phone: Start: 65-15-9812Qussdlfaqlw Panel (PCR)Basia Vega MD Work Phone: Start: 06-38-2425Uearudurvy exam chest 2 viewsHolly Jackie TOBARMAPPING SPECIALIST Work Phone: Start: 20-59-5776JL CHEST 2V FRONTAL/LATGeneric External Data ProviderStart: 19-97-6968Erihvf-up visitFollow-upCHUKWUEMEKE O NKADIStart: 17-14-0824YYW CBC W AUTO DIFF BLDGeneric External Data Provider Start: 58-71-2723SZ PET/CT SKULL-THIGH SUBQGeneric External Data ProviderStart: 23-88-6241Bqv imaging ct attenuation skull base mid-thighMichelle Mejia APRN.CNP Work Phone: Start: 18-09-7383WLM CBC W AUTO DIFF BLDGeneric External Data ProviderStart: 08-03-2024 End: 96-85-1301Xjxjgmttllfllxwzdey hormone acthMinvinny Donovan PA-C Work Phone: Start: 65-65-9313HG BRAIN WO/W IVCONGeneric External Data ProviderStart: 05-52-7936Gb head/brain w/o & w/contrast materialMichelle Mejia APRN.CNP Work Phone: Start: 23-79-4645AVU CBC W AUTO DIFF BLDGeneric External Data ProviderStart: 24-75-7878POY CBC W AUTO DIFF BLDGeneric External Data ProviderStart: 06-28-3872IDI CBC W AUTO DIFF BLDGeneric External Data ProviderStart: 93-22-1465GZH CBC W AUTO DIFF BLDGeneric External Data Provider Start: 57-45-5717Rjqvzginpwouam aspir&/inj major jt/bursa w/o usGrant T Luiza VELARDE Work Phone: Start: 27-20-0628Rllnapvjrqyozr aspir&/inj major jt/bursa w/o usGrant T Luiza DISH MACHINE OPERATOR Work Phone: Start: 86-68-0687LS PET/CT SKULL-THIGH SUBQGeneric External Data ProviderStart: 39-44-6880Zqq imaging ct attenuation skull base mid-thighJack Hoang MD Work Phone: Start: 23-73-0661JHE CBC W AUTO DIFF BLDGeneric External Data ProviderStart: 04-03-2024 End: 95-24-1649Ugwhy count complete auto&auto difrntl wbcLo Hancock MD Work Phone: Start: 14-96-0702Dcahnoiorzqtky aspir&/inj major jt/bursa w/o usGrant T Luiza DISH MACHINE OPERATOR Work Phone: Start: 50-48-3837AXZ CBC W AUTO DIFF BLDGeneric External Data ProviderStart: 85-61-1765Ko abdomen & pelvis w/contrast material Lo Hancock MD Work Phone: Start: 01-25-2024 End: 27-77-7072Pn thorax w/contrast materialLo Hancock MD Work Phone: Start: 17-14-2207II ABD/PEL W IVCONGeneric External Data ProviderStart: 12-48-4762PSV CBC W AUTO DIFF BLDGeneric External Data ProviderStart: 09-02-0467Eabkd count complete auto&auto difrntl wbcLo Hancokc MD Work Phone: Start: 17-09-8151Kkanp metabolic panel calcium total Dick Miranda MD Work Phone: Start: 25-89-9479Duhek metabolic panel calcium total Dick Miranda MD Work Phone: Start: 80-49-5375IFP CBC W AUTO DIFF BLDGeneric External Data ProviderStart: 34-94-0969QAI CBC W AUTO DIFF BLDGeneric External Data ProviderStart: 04-38-2508MST CBC W AUTO DIFF BLDGeneric External Data ProviderStart: 52-47-4014XQN CBC W AUTO DIFF BLDGeneric External Data Provider Start: 45-96-7836LUI CYTOLOGY NON-GYNGeneric External Data ProviderStart: 10-27-2390LLGSHNZQGTVSPhnebyt External Data ProviderStart: 00-88-1582Slk routine ecg w/least 12 lds i&r onlyCcf ProviderStart: 93-46-8202Bfyrkt-up visit Follow-upSOPHIA G AFRIDIStart: 11-95-6016Gcpqb 1996 panel - Serum or PlasmaLo Hancock MD Work Phone: Start: 61-54-4407U-ray of lumbar spine, four views Basia Duartetart: 44-16-9520Sqsyzs-up visitStart: 35-32-4231Oykifaq of tympanostomyMyringotomy tube statusDick Miranda MD Work Phone: Start: 94-43-5522BpathsprwcqHjfz Naderer MD Work Phone: H/O: surgeryHx of neck surgeryFrsanti Elizondo APRN.MAPPING SPECIALIST Work Phone: History of tympanostomyMyringotomy tube statusBasia Vega MD Work Phone: Plan of Treatment DateCare ActivityDetailAuthorStart: 66-01-7875Dvuqj panelLipid Screening [facility] Hospitaltart: 81-06-7342Rnbjqwnv specific antigen measurementProstate Cancer Screening DiscussionMercy Health Kings Mills Hospitaltart: 36-79-0283Ilmsswmj Screening Diabetes ScreeningMercy Health Kings Mills Hospitaltart: 73-38-1956Xtkywxne ScreeningDiabetes ScreeningMercy Health Kings Mills Hospitaltart: 07-31-0548Rblyfqax ScreeningDiabetes Screening [facility] Hospitaltart: 01-23-2950Qapbfpfv ScreeningDiabetes ScreeningMercy Health Kings Mills Hospitaltart: 84-07-9917Acqbofym ScreeningDiabetes ScreeningCincinnati Va Medical Center Start: 13-32-8856Fglbfwci ScreeningDiabetes ScreeningMercy Health Kings Mills Hospitaltart: 11-13-9055Cjopnmpe ScreeningDiabetes ScreeningMercy Health Kings Mills Hospitaltart: 05-02-2027 Diabetes ScreeningDiabetes ScreeningMercy Health Kings Mills Hospitaltart: 53-40-2326Kwlwipuf ScreeningDiabetes ScreeningMercy Health Kings Mills Hospitaltart: 58-69-2951Llkdolnr Screening Diabetes ScreeningMercy Health Kings Mills Hospitaltart: 81-62-3646Fikuvrkn ScreeningDiabetes ScreeningMercy Health Kings Mills Hospitaltart: 02-35-5548Fhxfdkdh ScreeningDiabetes Screening [facility]tart: 30-18-1748Apzctomg ScreeningDiabetes ScreeningMercy Health Kings Mills Hospitaltart: 62-62-8673Thqtfhow ScreeningDiabetes ScreeningCincinnati Va Medical Center Start: 99-73-4643Hbiasbod ScreeningDiabetes ScreeningMercy Health Kings Mills Hospitaltart: 67-31-9813Vqtvqooj ScreeningDiabetes ScreeningMercy Health Kings Mills Hospitaltart: 10-02-2025 Screening for malignant neoplasm of colonNOMS HealthcareStart: 66-33-4360Jxvkp BMI ScreeningAdult BMI ScreeningProTuscarawas Hospital SystemStart: 24-99-4559Qtabkgj ScreeningTobacco ScreeningProvidence Hospital SystemStart: 65-21-4576Ubuuuou ScreeningTobacco ScreeningProvidence Hospital SystemStart: 98-19-8996Nhkvr BMI ScreeningAdult BMI ScreeningProvidence Hospital SystemStart: 07-25-2025 End: 12-95-2009Oamftxw encounter procedureNOMS SWS DERMStart: 03-24-8508HV Controlled (<130/80)BP Controlled (<130/80)[facility] Hospitaltart: 69-68-5440QZ Controlled (<130/80)BP Controlled (<130/80)[facility] Hospitaltart: 04-23-2025 End: 12-18-2256Eflliiy encounter iabrlfbjz91/17/2026 10:00 AM EST Office Visit [facility] [address] [place] [address] Dick Miranda MD [address] [place] [address] [facility] FMStart: 02-12-2026Medicare Annual Wellness (AWV)Medicare Annual Wellness (AWV)[facility] HealthcareStart: 51-18-0731Ehdqb BMI ScreeningAdult BMI ScreeningProvidence Hospital SystemStart: 60-99-0818Jxnraod ScreeningTobacco ScreeningProvidence Hospital SystemStart: 44-88-0807Bawwc BMI ScreeningAdult BMI ScreeningAdena Regional Medical Centerca [facility] SystemStart: 24-36-9878Wqyfeuw ScreeningTobacco ScreeningAdena Regional Medical [facility] SystemStart: 29-86-8493Zutlr BMI ScreeningAdult BMI ScreeningProThe University Of Toledo Medical Centerca [facility] SystemStart: 25-59-2688Ziotugn ScreeningTobacco ScreeningAdena Regional Medical Centerca [facility] SystemStart: 75-57-5287FY Controlled (<130/80)BP Controlled (<130/80)[facility]: 02-11-2025 End: 19-52-8327Vzlnwyg encounter /08/2025 9:30 AM EST Office Visit [facility] [address] [place] [address] Bina Griffin, DO [address] [place] [address] [facility] 02-07[facility]2025 End: 79-66-6528Bguumke encounter mykjybsly82/04/2025 8:30 AM EST Appointment [facility] [address] [place] [address] Bina Griffin, DO [address] [place] [address] [facility] VascularStart: 02-06-2025 End: 20-97-2856OS.doppler Extremity arteries - bilateral for physiologic artery studyVas art doppler lwr bilat mult lev/PVR Vascular Ultrasound Routine Occlusive disease, arterial Atheroembolism of bilateral lower extremities ([facility]) Expected: 02/06/2025 (Approximate), Expires: 08/06/2025[facility] Work Phone: Comment on above:Expected: 02/06/2025 (Approximate), Expires: 08/06/2025Start: 29-71-8977Saotijxmzj A1c measurementDiabetes: Hemoglobin E4WDRJCSt. Louis VA Medical CenterStart: 37-93-6825WT Controlled (<130/80)BP Controlled (<130/80)[facility]: 11-23-2024 End: 04-84-6944Ynuvgl-up psvjbrdqu35/19/2025 1:30 PM EDT Visit (SP) Office Hematology/Oncology [address] [place] [address] [address] [place], [place] [phone] Preston Hernández APRN.MAPPING SPECIALIST [address] [place] [address] [place] [address] 2 week follow up to recheck symptomsHematology/Oncology Comment on above:2 week follow up to recheck symptomsStart: 51-16-5326Rnudbuynfq A1c measurementDiabetes: Hemoglobin O2BMOLL HealthcareStart: 11-16-2024 End: 71-69-6769Cvardct encounter fpxavasxn05/12/2025 11:00 AM EDT Office Visit Radiation Oncology [address] [place] [address] Jack Hoang MD [address] [place] [address] follow upRadiation OncologyComment on above:follow upStart: 11-76-9812TX Controlled (<130/80)BP Controlled (<130/80)[facility]art: 11-15-2024 Hemoglobin A1c measurementDiabetes: Hemoglobin K3RQYYJ HealthcareStart: 11-09-2024 End: 32-81-6876Xjjtvu-up encounterHematology/OncologyComment on above:follow up after PET scan same dayStart: 11-09-2024 End: 96-06-3804Fnaneyo encounter ekktibmiv79/05/2025 10:00 AM EDT Appointment Radiology Pet CT [address] [place] [address] PET Radiology Pet CTComment on above:PETStart: 11-08-2024 End: 51-46-8237SHQ W Auto Differential panel - BloodCOMPLETE BLOOD COUNT AND DIFFERENTIAL Lab Routine Malignant neoplasm of unspecified part of unspecified bronchus or lung (HCC) Expected: 11/08/2024 (Approximate), Expires: 02/07/2025 [facility] CenterComment on above:Expected: 11/08/2024 (Approximate), Expires: 02/07/2025Start: 11-08-2024 End: 68-43-8162Tatzjddzryara metabolic 2000 panel - Serum or PlasmaCOMPREHENSIVE METABOLIC PANEL Lab Routine Malignant neoplasm of unspecified part of unspecified bronchus or lung (HCC) Expected: 11/08/2024 (Approximate), Expires: 02/07/2025[facility] ClinicComment on above:Expected: 11/08/2024 (Approximate), Expires: 02/07/2025Start: 11-08-2024 End: 61-39-8914Ehnbukts [Mass/volume] in Serum or PlasmaCORTISOL, SERUM Lab Routine Malignant neoplasm of unspecified part of unspecified bronchus or lung ( HCC) Immunotherapy Malaise and fatigue Abnormal blood chemistry Expected: 11/08/2024 (Approximate),Expires: 02/07/2025[facility] ClinicComment on above: Expected: 11/08/2024 (Approximate), Expires: 02/07/2025Start: 11-08-2024 End: 47-45-7282Pcamaqxgxn A1c in BloodHEMOGLOBIN A1C Lab Routine Malignant neoplasm of unspecified part of unspecified bronchus or lung (HCC) Immunotherapy Abnormal blood chemistry Expected: 11/08/2024 (Approximate), Expires: 02/07/2025leveland ClinicComment on above:Expected: 11/08/2024 (Approximate), Expires: 02/07/2025Start: 11-08-2024 End: 04-26-3414KAH+CT Guidance for localization of tumor of Skull base to mid-thigh-- W 18F-FDG IVNM PET/CT SKULL-THIGH SUBSEQUENT Radiology Routine Malignant neoplasm of unspecified part of unspecified bronchus or lung (HCC) Expected: 11/08/2024 (Approximate), Expires: 09/15/2025[facility] Work Phone: Comment on above:Expected: 11/08/2024 (Approximate), Expires: 09/15/2025Start: 11-08-2024 End: 88-47-3986Jfbdbafdgwu [Units/volume] in Serum or PlasmaTHYROID STIMULATING HORMONE Lab Routine Malignant neoplasm of unspecified part of unspecified bronch us or lung (HCC) Immunotherapy Malaise and fatigue Expected: 11/08/2024 (Approximate), Expires: 02/07/2025[facility] hospitaland ClinicComment on above:Expected: 11/08/2024 (Approximate), Expires: 02/07/2025Start: 84-66-2238Fkyrukzsc [facility] CenterStart: 37-00-5093JrhbfmqimMagruder Memorial Hospital Start: 67-27-9541VflegugzebubMzwjzumwsUniversity Hospitals Ahuja Medical Centertart: 10-27-2024 Hospital admissionUniversity Hospitals Ahuja Medical Centertart: 46-88-2960IajnntpotUniversity Hospitals Ahuja Medical Centertart: 10-26-2024 End: 85-38-6640Cmapwqs encounter /22/2025 8:00 AM EDT Appointment Radiology [address] [place] [address] [place] [address] CHEST XRAY RadiologyComment on above:CHEST XRAYStart: 10-24-2024 End: 40-79-5221lacmpzlgpn54/20/2025 1:30 PM EDT Treatment [facility] [address] [place] [id number] Anmol Parker PTANOMS [facility]de Physical TherapyStart: 89-13-8095Yuenf BMI Screening Adult BMI ScreeningProThe University Of Toledo Medical Centerca Health SystemStart: 86-84-5025Ifjkvxp Screening Tobacco ScreeningProThe University Of Toledo Medical Centerca Health SystemStart: 10-17-2024 End: 12-09-9793izjokcbwye73/13/2025 1:30 PM EDT Treatment [facility] [address] [place] [id number] Nilda Mayes PTANOMS [facility] Physical TherapyStart: 10-17-2024 End: 84-69-3145Iicxgeb encounter zpyyjxzka29/13/2025 10:00 AM EDT Office Visit [facility] [address] [place] [address] Dick Miranda MD [address] [place] [address] [facility] FMStart: 81-58-7876Mlevm BMI ScreeningAdult BMI ScreeningProThe University Of Toledo Medical Centerca [facility] SystemStart: 37-03-6873Iinsnns ScreeningTobacco ScreeningProMedica Health SystemStart: 26-59-0723Oiiqyet ScreeningTobacco ScreeningProThe University Of Toledo Medical Centerca [facility] SystemStart: 21-76-3098Hbdgwfjbmy A1c measurementDiabetes: Hemoglobin B2FRDSW HealthcareStart: 10-01-2024 End: 79-77-2618imrtbiznfr70/28/2025 1:00 PM EDT Treatment [facility] [address] [place] [address] Arnulfo Wang PTANOMS CI PTStart: 00-89-9420Dgwsn BMI ScreeningAdult BMI ScreeningProvidence Hospital SystemStart: 09-27-2024 End: 84-62-4548vmxvamegit88/24/2025 1:00 PM EDT Treatment [facility] [address] [place] [address] Arnulfo Wang PTANOMS CI PTStart: 10-49-4518Oqrmofmsja A1c measurementDiabetes: Hemoglobin A1C [facility] HealthcareStart: 09-26-2024 End: 17-28-7439Zjslobq encounter annythwuo38/23/2025 1:45 PM EDT Office Visit [facility] [address] [place] [address] Gary Owen MD [address] [place] [address] Neha Garcia MD [address] [place] [address] [facility] CardiologyStart: 09-25-2024 End: 83-55-6344Ybvzzxa encounter jemstpmvf30/22/2025 2:35 PM EDT Office Visit [facility] [address] [place] [address] Susan Claudio MD [address] [place] [address] [facility] SWS DERMStart: 09-24-2024 End: 58-26-0702voxoggohgv17/21/2025 1:00 PM EDT Treatment [facility] [address] [place] [address] Arnulfo Wang PTAALANNAH CI PTStart: 09-21-2024 End: 27-62-5848hbrhqytlqqBRKP CI PTComment on above:ArrivedStart: 09-19-2024 End: 73-42-7339Hbhpfgozl (Vitamin B12) [Mass/volume] in Serum or PlasmaCincinnati Va Medical CenterComment on above:Expected: 09/19/2024, Expires: 12/19/2024Start: 09-19-2024 End: 48-25-7128Ixkmjngp [Mass/volume] in Serum or PlasmaMarengo ClinicComment on above:Expected: 09/19/2024, Expires: 12/19/2024Start: 09-19-2024 End: 22-92-0372Uayxzs [Mass/volume] in Serum or PlasmaCincinnati Va Medical CenterComment on above:Expected: 09/19/2024, Expires: 12/19/2024Start: 09-19-2024 End: 22-84-3112Hgpx and Iron binding capacity panel - Serum or PlasmaCincinnati Va Medical Center [facility] Work Phone: Comment on above:Expected: 09/19/2024, Expires: 12/19/2024Start: 09-19-2024 End: 74-89-5408Iulvcknsxso [Units/volume] in Serum or PlasmaCincinnati Va Medical Center Comment on above:Expected: 09/19/2024, Expires: 12/19/2024Start: 09-18-2024 End: 21-69-3852sfwgtaymciYYGU CI PTComment on above:ArrivedStart: 09-18-2024 End: 48-96-3512Qinprwl encounter onhixotdh95/15/2025 9:35 AM EDT Office Visit [facility] [address] [place] [address] Susan Claudio MD [address] [place] [address] [facility] SWS DERMStart: 09-13-2024 End: 93-87-8313koxxwnqety09/10/2025 10:30 AM EDT Evaluation [facility] [address] [place] [address] Verónica Dumont, PT ArrivedNOMS CI PTComment on above:ArrivedStart: 08-31-2024 End: 28-73-1952Swoppmb encounter qyryvruyt15/27/2025 2:30 PM EDT Office Visit Radiation Oncology [address] [place] [address] Jack Hoang MD [address] [place] [address] follow upRadiation OncologyComment on above:follow upStart: 08-24-2024 Hemoglobin A1c measurementDiabetes: Hemoglobin I0YRDVY HealthcareStart: 08-18-2024 End: 37-38-6850GHQ W Auto Differential panel - BloodCOMPLETE BLOOD COUNT AND DIFFERENTIAL Lab Routine Syncope and collapse Malignant neoplasm of upper lobe of left lung (HCC) Expected: 08/18/2024, Expires: 11/17/2024[facility] Comment on above:Expected: 08/18/2024, Expires: 11/17/2024Start: 08-18-2024 End: 76-01-2678Fikzrqowhzfbr metabolic 2000 panel - Serum or PlasmaCOMPREHENSIVE METABOLIC PANEL Lab Routine Syncope and collapse Malignant neoplasm of upper lobe of left lung (HCC) Expected: 08/18/2024, Expires: 11/17/2024leveland ClinicComment on above:Expected: 08/18/2024, Expires: 11/17/2024Start: 08-18-2024 End: 18-41-1752Mzxnempj [Mass/volume] in Serum or PlasmaCORTISOL, SERUM Lab Routine Syncope and collapse Malignant neoplasm of upper lobe of left lung (HCC) Expected: 08/18/2024, Expires: 11/17/2024[facility] ClinicComment on above: Expected: 08/18/2024, Expires: 11/17/2024Start: 08-18-2024 End: 52-87-7000Xcfoyfqrdxd [Units/volume] in Serum or PlasmaTHYROID STIMULATING HORMONE Lab Routine Syncope and collapse Malignant neoplasm of upper lobe of lef t lung (HCC) Expected: 08/18/2024, Expires: 11/17/2024[facility] ClinicComment on above:Expected: 08/18/2024, Expires: 11/17/2024Start: 08-17-2024 End: 55-25-1616Zedekc-up encounterHematology/OncologyComment on above:4 week follow up with lab and chemotx NivoStart: 08-17-2024 End: 68-63-5328Pqugvsh encounter uirdoqmcw17/13/2025 1:45 PM EDT Office Visit [facility] [address] [place] [address] 4 week follow up with lab and chemotx NivoNortMyMichigan Medical Center Alpena LaboratoryComment on above:4 week follow up with lab and chemotx NivoStart: 08-16-2024 End: 15-87-7136syangnrpkj37/12/2025 11:45 AM EDT [facility] Hematology/Oncology [address] [place] [address] Lo Hancock MD [address] [place] [address] phone visit to go over resultsHematology/OncologyComment on above:phone visit to go over resultsStart: 08-08-2024 End: 02-74-3808Zepzitoxclxh / ancillary services gnfyxfxqei21/04/2025 11:00 AM EDT Ancillary Procedure [facility] MR [address] [facility] [address] [place] [address] UDWR FNR MRStart: 08-06-2024 End: 82-59-8447Vctqehl encounter pteyzaopb96/02/2025 10:00 AM EDT Office Visit [facility] [place] [address] [place] [address] Bina Griffin, DO [address] [facility] [address] [place] [address] [facility] [place]Start: 08-03-2024 End: 15-32-6141Wmxgzhe encounter apolvkzhg21/30/2025 8:00 AM EDT Appointment Radiology Pet CT [address] [place] [address] PET Radiology Pet CTComment on above:PETStart: 07-26-2024 End: 97-23-9182Ojvpqtf encounter procedureNOMS FB ORTHOPAEDICSComment on above: ArrivedStart: 07-20-2024 End: 70-97-6180Tnoofj-up encounterHematology/OncologyComment on above:4 week follow up with lab and chemotx NivoStart: 07-20-2024 End: 78-26-0173Llyhmnm encounter euoujhdpo82/16/2025 1:15 PM EDT Office Visit [facility] [address] [place] [address] 4 week follow up with lab and chemotx NivCypress Pointe Surgical Hospital LaboratoryComment on above:4 week follow up with lab and chemotx NivoStart: 07-13-2024 End: 62-14-1988Tdpvxh-up encounterHematology/OncologyComment on above:4 week follow up with lab and chemotx NivoStart: 07-13-2024 End: 42-02-3046Rbaagon encounter twcblcust51/09/2025 1:15 PM EDT Office Visit [facility] [place] [address] 4 week follow up with lab and chemotx NivCypress Pointe Surgical Hospital LaboratoryComment on above:4 week follow up with lab and chemotx NivoStart: 07-09-2024 End: 84-53-1427Mgmgrgcsmq A1c in BloodHEMOGLOBIN A1C Lab Routine Malignant neoplasm of upper lobe of left lung (HCC) Abnormal blood chemistry Malaise and fatigue Expected: 07/09/2024 (Approximate), Expires: 10/08/2024[facility] Comment on above:Expected: 07/09/2024 (Approximate), Expires: 10/08/2024Start: 06-29-2024 End: 39-34-8572Twzmdjt encounter rwbiosxsf14/25/2025 1:30 PM EDT Office Visit [facility] [address] [place] [address] 2 week labNortMyMichigan Medical Center [facility]pen[facility] Laboratory Comment on above:2 week labStart: 25-59-7206Fqwakryqim A1c measurementDiabetes: Hemoglobin P7RINMASt. Louis VA Medical CenterStart: 39-91-3754Jjfao BMI ScreeningAdult BMI ScreeningProvidence Hospital SystemStart: 06-15-2024 End: 75-99-9420Chgzsfk encounter tfggijnsq61/11/2025 2:45 PM EDT Office Visit Radiation Oncology [address] [place] [address] Jack Hoang MD [address] [place] [address] Final radiation follow upRadiation OncologyComment on above:Final radiation follow upStart: 06-15-2024 End: 72-74-1226Ayshmz-up encounterHematology/OncologyComment on above:follow up with lab and chemotx NivoStart: 06-15-2024 End: 81-11-1671Xxqyhwa encounter procedureNortMyMichigan Medical Center Alpena LaboratoryComment on above:follow up with lab and chemotx Nivo6 week follow up Start: 06-13-2024 End: 57-13-2291Tawlcun encounter catpbhotl94/09/2025 10:00 AM EDT Office Visit Palliative Medicine [address] [place] [address] Joey Scott, INSPECTOR HEATING AND REFRIGERATION.MAPPING SPECIALIST [address] [address] 6 week follow upPalliative MedicineComment on above:6 week follow upStart: 06-13-2024 End: 80-76-7279Mhvecqsyl ybuqbzw2106/13/2024 9:15 AM EDT Education Nutrition Therapy [address] [place] [address] [facility] [place] [address] Nutrition after seeing Sharona BundridgeNutrition TherapyComment on above:Nutrition after seeing Sharona DovegeStart: 06-08-2024 End: 92-25-5988Jthmtrq encounter qcrkcmnle37/04/2025 2:30 PM EDT Office Visit Radiation Oncology [address] [place] [address] Jack Hoang MD [address] [place] [address] Final radiation follow upRadiation OncologyComment on above:Final radiation follow upStart: 06-08-2024 End: 47-27-3619Psafkzh encounter hnijbdenc45/04/2025 10:30 AM EDT Office Visit Radiation Oncology [address] [place] [address] Jack Hoang MD [address] [place] [address] Final radiation follow upRadiation OncologyComment on above:Final radiation follow upStart: 06-06-2024 End: 94-10-5466Enqrjrpem npttrfd3206/06/2024 3:00 PM EDT Education Nutrition Therapy [address] [place] [address] [place] [address] Nutrition after seeing Sharona DovegeNutrition TherapyComment on above:Nutrition after seeing Sharona DovegeStart: 06-06-2024 End: 78-06-7540Nirqbqp encounter /02/2025 2:30 PM EDT Office Visit Palliative Medicine [address] [place] [address] Joey Scott, INSPECTOR HEATING AND REFRIGERATION.MAPPING SPECIALIST [address] [address] 6 week follow upPalliative MedicineComment on above:6 week follow upStart: 05-18-2024 End: 85-24-8293Grechi-up encounterHematology/OncologyComment on above:follow up with lab and chemotx NivoStart: 05-18-2024 End: 66-34-4604Qrrqbvm encounter /14/2025 12:45 PM EDT Office Visit [facility] [address] [place] [address] [place] [address] follow up with lab and chemotx NivoNortMyMichigan Medical Center Alpena LaboratoryComment on above:follow up with lab and chemotx Nivo Start: 05-11-2024 End: 46-59-8783Brjwdcf encounter procedureRadiation OncologyComment on above: SBRT LUNGStart: 05-09-2024 End: 18-25-1933Epnsvt-up encounterHematology/OncologyComment on above:follow up with lab and chemotx NivoStart: 05-09-2024 End: 44-58-3907Drhaqgy encounter procedureNortMyMichigan Medical Center Alpena LaboratoryComment on above:follow up with lab and chemotx NivoSBRT LUNGSBRT LUNG - 1245 LAB, [address], 130 CHEMOStart: 05-09-2024 End: 42-81-8575Mqbqyjg encounter procedureRadiation OncologyComment on above: SBRT LUNGStart: 05-07-2024 End: 21-28-2665Krvikgg encounter procedureRadiation OncologyComment on above: SBRT LUNGStart: 05-04-2024 End: 60-37-5744Odkknlc encounter xrvfoabgm84/28/2025 2:30 PM EST Office Visit Palliative Medicine [address] [place] [address] [place] [address] Joey Scott, INSPECTOR HEATING AND REFRIGERATION.MAPPING SPECIALIST [address] [phone] 6 week follow upPalliative MedicineComment on above:6 week follow upStart: 05-04-2024 End: 70-20-0906Izwtzua encounter procedureRadiation OncologyComment on above: SBRT LUNGStart: 05-02-2024 End: 28-64-8005nvenijxgkz63/26/2025 11:00 AM EST Visit (SP) Office Hematology/Oncology [address] [place] [address] [place] [address] Mihai Woody LMT [address] [place] [address] massage therapyHematology/OncologyComment on above:massage therapyStart: 05-02-2024 End: 56-30-4674Lxdyslj encounter procedureRadiation OncologyComment on above: SBRT LUNGlab on day fo XRT startNEW START SBRT LUNGNEW START SBRT LUNG - GIVE NEW SCHEDStart: 04-30-2024 End: 93-62-9444Auiabsn encounter procedureRadiation OncologyComment on above: SBRT LUNGStart: 04-27-2024 End: 26-71-4076Ciecwnc encounter procedureRadiation OncologyComment on above: SBRT LUNGStart: 04-25-2024 End: 76-26-3596tojqdljapr77/19/2025 11:00 AM EST Visit (SP) Office Hematology/Oncology [address] [place] [address] Mihai Woody LMT [address] [place] [address] massage therapyHematology/OncologyComment on above:massage therapyStart: 04-25-2024 End: 98-39-6590Gcwybjj encounter procedureNortMyMichigan Medical Center Alpena LaboratoryComment on above:lab on day fo XRT startNEW START SBRT LUNGSBRT LUNG Start: 04-18-2024 End: 71-51-3558Jlqwwos encounter procedureNOMS CWM FMComment on above:Arrived Start: 04-16-2024 End: 04-94-5232Reymyiu encounter xldwjacqa93/10/2025 2:00 PM EST Office Visit [facility] [place] [address] [place] [address] [place] [address] [place] [address] [place] [address] [facility] [place]ontStart: 04-11-2024 End: 98-47-8264Vaoaze-up trnlvameo51/05/2025 1:00 PM EST Visit (SP) Office Hematology/Oncology [address] [place], [place] [phone] Lo Hancock MD [address] [place] [address] Follow upHematology/OncologyComment on above:Follow upStart: 04-11-2024 End: 21-83-1188Yhavuuj evaluation of patient and wyctks9204/11/2024 11:20 AM EST Nurse Visit Radiation Oncology [address] [place] [address] [place] [address] Tolu, Nurse Radiation Ed Radt [address] [place] [address] [place] [address] Rad EdRadiation OncologyComment on above:Rad EdStart: 04-11-2024 End: 95-76-3313Sptegrq encounter procedureRadiation OncologyComment on above:PRE SIM POSSIBLE SBRT LUNG, IV CONTRAST, NEEDS CONSENTSIM POSSIBLE SBRT LUNG, IV CONTRAST, NEEDS CONSENTStart: 04-09-2024 End: 09-67-3009Vfpedrl encounter procedureProDoctors Hospital - VascularStart: 04-04-2024 End: 98-91-9031MN.doppler Extremity arteries - bilateral for physiologic artery studyVas art doppler lwr bilat mult lev/PVR Vascular Ultrasound Routine Occlusive disease, arterial Atheroembolism of bilateral lower extremities ([facility]- HCC) Expected: 04/04/2024 (Approximate), Expires: 10/02/2024[facility] Work Phone: Comment on above:Expected: 04/04/2024 (Approximate), Expires: 10/02/2024Start: 04-03-2024 End: 19-63-5559Wiuujtp encounter procedureRadiology Pet CTComment on above:PET NM PET/CT SKULL-THIGH SUBSEQUENTPETStart: 03-23-2024 End: 65-71-7753Eanrymq encounter olvqdedbi58/17/2025 2:30 PM EST Office Visit Palliative Medicine [address] [place] [address] [place] [address] Joey Scott, INSPECTOR HEATING AND REFRIGERATION.MAPPING SPECIALIST [address] [place] [address] 3 month follow upPalliative MedicineComment on above: 3 month follow upStart: 63-51-6212Nhbfjzbqkq A1c measurementDiabetes: Hemoglobin O3JBXKG HealthcareStart: 01-12-2025Medicare Annual Wellness (AWV)Medicare Annual Wellness (AWV)[facility] HealthcareStart: 03-15-2024 End: 62-04-0321Obeultb encounter pjdecrbkx82/09/2025 1:30 PM EST Office Visit [facility] [address] [place] [address] Olegario oMreira MD [address] [facility] [address] [place] [address] Tung Low MD [address] [facility] [place] [address] [facility] CardiologyStart: 22-57-3992Bvyqljd Directive DiscussionAdvance Directive DiscussionMercy Health Kings Mills Hospitaltart: 01-01-2025Medicare Advantage Annual Wellness VisitMedicare Advantage Annual Wellness VisitMercy Health Kings Mills Hospitaltart: 03-05-2024 End: 79-03-8679Qrrduut encounter dtefecyhh53/30/2024 10:30 AM EST Office Visit [facility] [address] [address] Olegario Moreira MD [address] [facility] [address] [place] [address] Gary Owen MD [address] [place] [address] [facility] CardiologyStart: 02-27-2024 End: 17-16-2530Jsekcp-up uwlofkmkj62/23/2024 11:00 AM EST Visit (SP) Office Hematology/Oncology [address] [place] [address] Lo Hancock MD [address] [place] [address] follow upHematology/OncologyComment on above:[address] follow upStart: 02-27-2024 End: 38-07-7174Zuaykdj encounter wrpicaiqe25/23/2024 10:45 AM EST Office Visit [facility] [address] [place] [address] [facility] LaboratoryComment on above:LabsStart: 02-24-2024 End: 49-84-4299Reuqnm-up sbjnyzbvw61/20/2024 2:40 PM EST Visit (SP) Office Hematology/Oncology [address] [place] [phone] Lo Hancock MD [address] [place] [address] follow upHematology/OncologyComment on above:[address] follow upStart: 02-24-2024 End: 62-54-7966Wahhibk encounter ljknjzbyo79/20/2024 2:30 PM EST Office Visit [facility] [address] [place], [place] [address]MARIALIUSA ABBI [place] [address] [facility] LaboratoryComment on above:LabsStart: 02-08-2024 End: 26-61-6212Kfphosi encounter vipuqfkbw68/04/2024 11:00 AM EST Office Visit Thoracic Surgery [address] [place] [address] [place] [address] [place] [address] resultsThoracic SurgeryComment on above:discuss CT resultsStart: 01-25-2024 End: 80-85-2270Mhiwdme encounter epbcjijxz71/20/2024 9:15 AM EST Appointment Radiology Pet CT [address] [place] [address] CT CAP Radiology Pet CTComment on above:CT CAPStart: 01-18-2024 End: 24-28-0642SEH W Auto Differential panel - BloodCOMPLETE BLOOD COUNT AND DIFFERENTIAL Lab Routine Malignant neoplasm of lung, unspecified laterality, unspecified part of lung (HCC) Malignant neoplasm of upper lobe of left lung (HCC) Expected: 01/18/2024 (Approximate), Expires: 12/27/2024[facility] Comment on above:Expected: 01/18/2024 (Approximate), Expires: 12/27/2024Start: 01-18-2024 End: 03-56-6886Pipistffzlvfh metabolic 2000 panel - Serum or PlasmaCOMPREHENSIVE METABOLIC PANEL Lab Routine Malignant neoplasm of lung, unspecified laterality, unspecified part of lung (HCC) Malignant neoplasm of upper lobe of left lung (HCC) Expected: 01/18/2024 (Approximate), Expires: 12/27/2024[facility] Comment on above:Expected: 01/18/2024 (Approximate), Expires: 12/27/2024Start: 01-18-2024 End: 44-39-0819JQ Abdomen and Pelvis W contrast IVCT ABD/PEL W IVCON Radiology Routine Malignant neoplasm of lung, unspecified laterality, unspecified part of lung (HCC) Malignant neoplasm of upper lobe of left lung (HCC) Expected: 01/18/2024 (Approximate), Expires: 01/26/2025[facility] Work Phone: Comment on above:Expected: 01/18/2024 (Approximate), Expires: 01/26/2025Start: 01-18-2024 End: 05-90-9887IS Chest W contrast IVCT CHEST W IVCON Radiology Routine Malignant neoplasm of lung, unspecified laterality, unspecified part of lung (HCC) Malignant neoplasm of upper lobe of left lung (HCC) Expected: 01/18/2024 (Approximate), Expires: 01/26/2025[facility]:Expected: 01/18/2024 (Approximate), Expires: 01/26/2025Start: 01-17-2024 End: 93-91-5472Gbrxjzt encounter kzquleqxj49/12/2024 10:15 AM EST Office Visit [facility] [address] [place] [address] Dick Miranda MD [address] [place] [address] [facility] CWM FMStart: 01-03-2024 End: 50-34-0195Kopkcov encounter procedureNOMS CI ORTHOPAEDICSComment on above: ArrivedStart: 12-29-2023 End: 17-17-8602Twqlmfi encounter procedureNOMS CWM FMComment on above:Arrived Start: 12-28-2023 End: 26-05-4848Hpevyp-up encounterHematology/OncologyComment on above:3 week lab follow up and chemotx Carbo/Taxol/NivoStart: 12-28-2023 End: 61-75-7907Cfsuvrz encounter rflxjuule41/23/2024 9:15 AM EDT Office Visit [facility] [address] [place], [place] [address] [address] 3 week lab follow up and chemotx Carbo/Taxol/NivoNortMyMichigan Medical Center Alpena LaboratoryComment on above:3 week lab follow up and chemotx Carbo/Taxol/NivoStart: 12-23-2023 End: 24-96-8690Mtrrmrj encounter uxorsbzqq72/18/2024 1:00 PM EDT Office Visit Palliative Medicine [address] [place] [address] [place] [address] Joey Scott, INSPECTOR HEATING AND REFRIGERATION.MAPPING SPECIALIST [address] [place] [address] New Referral for Pall MedPalliative MedicineComment on above:New Referral for Pall MedStart: 12-07-2023 End: 54-95-2830Urvqwj-up encounterHematology/OncologyComment on above:3 week lab follow up and chemotx Carbo/Taxol/NivoStart: 12-07-2023 End: 76-62-5928Uktkdfl encounter gaidhrmiz14/02/2024 9:15 AM EDT Office Visit [facility] [address] [place], [place] [address] [address] 3 week lab follow up and chemotx Carbo/Taxol/NivoNorth Mackin[facility] LaboratoryComment on above:3 week lab follow up and chemotx Carbo/Taxol/NivoStart: 11-29-2023 End: 09-26-6278Cbeypdlrz iqglall5311/29/2023 12:45 PM EDT Education Nutrition Therapy [address] [place] [address] [place] [address] Rhea Goddard, JOSE J [address] [place] [address] Primary malignant neoplasm of bronchus of left upper lobe (HCC) [C34.12] Nutrition TherapyComment on above:Primary malignant neoplasm of bronchus of left upper lobe (HCC) [C34.12]Start: 11-29-2023 End: 59-94-1837wzywswiapj26/24/2024 12:00 PM EDT Visit (SP) Office Hematology/Oncology [address] [place] [address] [place] [address] Nancy Osorio, MELODIE PT WILL BE IN LOBBYHematology/OncologyComment on above:PT WILL BE IN LOBBYStart: 11-25-2023 End: 33-31-8219OSF W Auto Differential panel - BloodCOMPLETE BLOOD COUNT AND DIFFERENTIAL Lab Routine Malignant neoplasm of upper lobe of left lung (HCC) Expected: 11/25/2023 (Approximate), Expires: 11/15/2024[facility] Work Phone: Comment on above:Expected: 11/25/2023 (Approximate), Expires: 11/15/2024Start: 11-25-2023 End: 10-81-2471Eyvhupilw (Vitamin B12) [Mass/volume] in Serum or PlasmaVITAMIN B12 Lab Routine Malignant neoplasm of upper lobe of left lung (HCC) Expected: 11/25/2023 (Approximate), Expires: 11/15/2024[facility] ClinicComment on above: Expected: 11/25/2023 (Approximate), Expires: 11/15/2024Start: 11-25-2023 End: 24-17-0926Ormmuamtbiewz metabolic 2000 panel - Serum or PlasmaCOMPREHENSIVE METABOLIC PANEL Lab Routine Malignant neoplasm of upper lobe of left lung (HCC) Expected: 11/25/2023 (Approximate), Expires: 11/15/2024[facility] ClinicComment on above:Expected: 11/25/2023 (Approximate), Expires: 11/15/2024Start: 11-25-2023 End: 73-58-0467Wuazkiip [Mass/volume] in Serum or PlasmaFERRITIN Lab Routine Malignant neoplasm of upper lobe of left lung (HCC) Expected: 11/25/2023 (Appro ximate), Expires: 11/15/2024[facility] ClinicComment on above:Expected: 11/25/2023 (Approximate), Expires: 11/15/2024Start: 11-25-2023 End: 15-04-5604Dxusmy [Mass/volume] in Serum or PlasmaFOLATE, SERUM Lab Routine Malignant neoplasm of upper lobe of left lung (HCC) Expected: 11/25/2023 ( Approximate), Expires: 11/15/2024[facility] ClinicComment on above:Expected: 11/25/2023 (Approximate), Expires: 11/15/2024Start: 11-25-2023 End: 00-80-9722Mvdo and Iron binding capacity panel - Serum or PlasmaIRON AND TIBC Lab Routine Malignant neoplasm of upper lobe of left lung (HCC) Expected: 11/25/2023 (Approximate), Expires: 11/15/2024[facility] ClinicComment on above: Expected: 11/25/2023 (Approximate), Expires: 11/15/2024Start: 11-25-2023 End: 46-15-0091frviggjazt96/20/2024 9:45 AM EDT [facility] Hematology/Oncology [address] [place] [address] david counts lab check, patient to stay for results ; lab drawn at 930 Hematology/OncologyComment on above:david counts lab check, patient to stay for results ; lab drawn at 930Start: 11-25-2023 End: 14-01-4984Vhrtzxd encounter mzlodvfww65/20/2024 9:30 AM EDT Office Visit [facility] [address] [place] [address] [place] [address] david counts lab check, patient to stay for results ; [facility]30[facility] LaboratoryComment on above:david counts lab check, patient to stay for results ; lab drawn at 930Start: 11-24-2023 End: 41-60-5258vptlypksoz94/19/2024 10:15 AM EDT [facility] Hematology/Oncology [address] [place] [address] david counts lab check, patient to stay for results ; lab drawn at 930 Hematology/OncologyComment on above:david counts lab check, patient to stay for results ; lab drawn at 930Start: 11-24-2023 End: 35-94-5787Tgfpqsq encounter bsacnaoye97/19/2024 10:00 AM EDT Office Visit [facility] [address] [place] [address] david counts lab check, patient to stay for results ; lab drawnat 930[facility] LaboratoryComment on above:david counts lab check, patient to stay for results ; lab drawn at 930Start: 11-16-2023 End: 41-89-8721lozspefbjg61/11/2024 4:15 PM EDT Visit (SP) Office Hematology/Oncology [address] [facility] [address] [place], [place] [phone] Lo Hancock MD [address] [place] [address] Appt after EBUS on 10-[address] Oreilly on 11-09-23. Hematology/OncologyComment on above:Appt after EBUS on 10-[address] Oreilly on 11-09-23.Start: 11-16-2023 End: 50-84-0371Mhaokh-up encounterHematology/OncologyComment on above:lab follow up and chemotx Carbo/Taxol/NivoStart: 11-16-2023 End: 15-19-3198Jpwjsoq encounter duciljszh63/11/2024 9:00 AM EDT Office Visit [facility] [address] [place] [address] lab follow up and chemotx Carbo/Taxol/NivoNorth Mackinac [facility] LaboratoryComment on above:lab follow up and chemotx Carbo/Taxol/NivoStart: 11-10-2023 End: 57-39-9387Oipmzrz encounter trfbaoszm88/05/2024 12:45 PM EDT Office Visit Kiara L Tyrell [facility] - Medical Oncology [address] [place] [phone] Gerald Abdi MD [address] [place] [address] Kiara L Tyrell [facility] - Medical OncologyStart: 11-09-2023 End: 62-07-0060Sfchzej encounter /04/2024 1:00 PM EDT Office Visit Thoracic Surgery [address] [facility] [address] [place] [address] [place] [address] [place], [place] [phone] Consult: Malignant Neoplasm of upper lobe of left lungThoracic SurgeryComment on above:Consult: Malignant Neoplasm of upper lobe of left lung Start: 06-86-1987Vprci-19 Vaccine ( season)Covid-19 Vaccine ( season)[facility]: 00-39-8860Mxzxr-19 Vaccine ( season)Covid-19 Vaccine ( season)[facility]: 11-06-2023 Influenza vaccinationMercy Health Kings Mills Hospitaltart: 11-03-2023 End: 09-51-8984Ctitqlu encounter kuskzgoad82/29/2024 10:15 AM EDT Office Visit Kiara L Tyrell [facility] - Medical Oncology [address] [place] [phone] Gerald Abdi MD [address] [place] [address] [facility] - Medical OncologyStart: 11-02-2023 End: 15-05-1038Atksncd encounter waiycbten42/28/2024 1:30 PM EDT Office Visit Thoracic Surgery [address] [place] [address] [place] [address] [place] [address] Consult: Malignant Neoplasm of upper lobe of left lung Thoracic SurgeryComment on above:Consult: Malignant Neoplasm of upper lobe of left lungStart: 11-01-2023 End: 52-29-0382Gstdjdcgs to same day surgery btkbxk2811/01/2023 1:30 PM EDT - 11/01/2023 3:00 PM EDT Surgery [facility] Endoscopy - ENDO [address] [place] [address] Hugh Craig MD [address] [place] [address] BRONCHOSCOPY,RIGID/FLEXIBLE W/ FLUORO,W/ENDOBRONCHIAL ULTRASOUND (EBUS) GUIDED TRANSTRACHEAL/ TRANSBRONCHIAL ASPIRATION/BIOPSY,1 OR 2 MEDIASTINAL AND/OR HILAR LYMPH NODE STATIONS/STRUCTURESFaSouthwood [facility] Hospital Endoscopy - ENDOComment on above:BRONCHOSCOPY,RIGID/FLEXIBLE W/ FLUORO,W/ENDOBRONCHIAL ULTRASOUND (EBUS) GUIDED TRANSTRACHEAL/ TRANSBRONCHIAL ASPIRATION/BIOPSY,1 OR 2 MEDIASTINAL AND/OR HILAR LYMPH NODE STATIONS/STRUCTURESStart: 57-95-9709Tokuxlhytk hospital visit by esmithlsq23/27/2024 1:30 PM EDT Hospital Encounter [facility] Endoscopy - ENDO [address] [place] [address] Hugh Craig MD [address] [place], [place] [phone] Lung nodule [R91.1][facility] Endoscopy - ENDOComment on above:Lung nodule [R91.1]Start: 11-01-2023 End: 85-14-5561Zlecxjq ebus guided sampl 1/2 node station/strux BRONCHOSCOPY,RIGID/FLEXIBLE W/ FLUORO,W/ENDOBRONCHIAL ULTRASOUND (EBUS) GUIDED TRANSTRACHEAL/ TRANSBRONCHIAL ASPIRATION/BIOPSY,1 OR 2 MEDIASTINAL AND/OR HILAR LYMPH NODE STATIONS/STRUCTURES Lung nodule 11/01/2023 12:10 PM EDTFV GIStart: 11-01-2023 End: 86-53-0455Zgqlvfa ebus guided sampl 1/2 node station/struxFV GIStart: 10-28-2023 End: 61-12-8456upcdsupfpu87/23/2024 11:00 AM EDT [facility] Pulmonology [facility] [address] [place] [address] Nancy Elizondo, INSPECTOR HEATING AND REFRIGERATION.MAPPING SPECIALIST [address] [place] [address] H/P BRONCH 10/31Pulmonology [facility] Comment on above:H/P BRONCH 10/31Start: 10-26-2023 End: 56-50-6378Fmohojqmuq gkykvvtauguw97/21/2024 2:20 PM EDT PAT Pre Anesthesia [address] [place] [address] 2, Pacc Campbell [address] [place] [address] in person per RN ASAPPre AnesthesiaComment on above:in person per RN ASAPStart: 10-25-2023 End: 48-78-2736Fyzpwiw encounter okuhwcxps56/20/2024 10:00 AM EDT Office Visit [facility] [address] [place] [phone] Susan King, INSPECTOR HEATING AND REFRIGERATION-MAPPING SPECIALIST [address] [address] [facility] NeurologyStart: 10-21-2023 End: 28-65-3139kuvnaxhmqh42/16/2024 4:30 PM EDT Visit (SP) Office Hematology/Oncology [address] [place], [place] [phone] Lo Hancock MD [address] [place] [address] abdi second opinion dx lung cancerPET scan scheduled 10/21/2023 [facility] HospitalHematology/OncologyComment on above:ref dr abdi second opinion dx lung cancerPET scan scheduled 10/21/2023 [facility] HospitalStart: 10-21-2023 End: 58-53-0377Zkduakx encounter rswovpult31/16/2024 8:30 AM EDT Appointment [facility] Kiara Cosme Garvin [facility] - Pet Imaging [address] [place] [phone] Kiara Santillan [facility] - Pet Imaging Start: 10-20-2023 End: 12-10-7675Nvzxemw encounter qqigojsuf98/15/2024 12:00 PM EDT Office Visit [facility] Pul[facility]/Sleep Medicine [address] [place] [phone] Estefany Lang, DO [address] [place] [address] [facility] Pulmonary/Sleep MedicineStart: 10-19-2023 End: 79-87-0810Vwqcwtj encounter pnuvotvtr30/14/2024 10:00 AM EDT Office Visit [facility] [address] [place] [phone] Dick Miranda MD [address] [place] [address] [facility] CWM FMStart: 10-13-2023 End: 15-98-5128Dzjtdqc encounter mrwromqsq31/08/2024 3:30 PM EDT Office Visit Kiara L Tyrell [facility] - Medical Oncology [address] [place] [phone] Gerald Abdi MD [address] [place] [address] [address] [place] [phone] [facility] - Medical OncologyStart: 10-05-2023 End: 90-87-9272Wkkppje encounter /31/2024 1:00 PM EDT Appointment [facility] - Interventional Radiology [address] [place] [address] [phone] [facility] - Interventional Radiology Start: 10-03-2023 End: 19-18-8265Hvamvmy encounter esuacpkjj72/29/2024 1:00 PM EDT Office Visit [facility] [address] [place] [address] [place] [address] Olegario Moreira MD [address] [facility] [address] [place] [address] [facility] VascularStart: 09-26-2023 End: 60-91-7321Mgzwlpx encounter pziahfylg54/22/2024 8:00 AM EDT Appointment [facility] - CT Imaging [address] [place] [address] Olegario Moreira MD [address] [facility] [address] [place] [address] [facility] - CT ImagingStart: 09-22-2023 End: 64-01-5157Ywfowac encounter nlolfuebs16/18/2024 9:50 AM EDT Office Visit [facility] [address] [place] [address] Susan Claudio MD [address] [place] [address] [facility] SWS DERMStart: 37-86-7023Ftjlagutg vaccination Influenza Vaccine (#1)[facility] HealthcareComment on above:Postponed from 11/05/2022 (Patient Refused)Start: 06-27-2023 End: 95-73-9467GZZ Abdominal Aorta and Bilateral Runoff Vessels W contrast IVCT angiogram abdominal aorta with runoff Imaging Routine Occlusive disease, arterial Expected: 06/27/2023, Expires: 06/26/2024[facility] Work Phone: Comment on above:Expected: 06/27/2023, Expires: 06/26/2024Start: 06-17-2023 End: 29-44-8752Inphaee encounter ahtvcifcl56/12/2024 9:00 AM EDT Office Visit [facility] [address] [place] [phone] [phone] Georges NP [address] [place] [address] PANFILO EVANS FMStart: 73-46-9782Yemvzcu ScreeningTobacco Screening [facility]: 04-20-2023 End: 08-50-9077Qqepyhchufb [Units/volume] in Serum or PlasmaTSH Lab Routine Hypothyroidism, postradioiodine therapy (CMS/HCC) Expected: 04/20/2023 (Approximate), Expires: 04/20/2024[facility] Work Phone: Comment on above:Expected: 04/20/2023 (Approximate), Expires: 04/20/2024Start: 04-20-2023 End: 39-93-2933Xsbmmipxn (T4) free [Mass/volume] in Serum or PlasmaT4, free Lab Routine Hypothyroidism, postradioiodine therapy (CMS/HCC) Expected: 04/20/2023 (Approximate), Expires: 04/20/2024[facility] HealthcareComment on above:Expected: 04/20/2023 (Approximate), Expires: 04/20/2024Start: 04-20-2023 End: 64-19-1356Jddxwwiqttcutmqx (T3) Free [Mass/volume] in Serum or PlasmaT3, free Lab Routine Hypothyroidism, postradioiodine therapy (CMS/HCC) Expected: 04/20/2023 (Approximate), Expires: 04/20/2024[facility] HealthcareComment on above: Expected: 04/20/2023 (Approximate), Expires: 04/20/2024Start: 46-70-2706Btxpoxb Directive DiscussionAdvance Directive DiscussionMercy Health [facility] Hospitaltart: 85-84-9403Eycpr-19 Vaccine ()Covid-19 Vaccine ( season)[facility]: 82-01-2548Fogen-19 Vaccine () Covid-19 Vaccine ()[facility]: 43-02-4242Xeyknmsvs aortic aneurysm screeningAbdominal Aortic Aneurysm (AAA) ScreenNovant Health Huntersville Medical Centertart: 60-44-0916Drja Risk ScreeningFall Risk ScreeningNovant Health Huntersville Medical Centertart: 28-03-5563Ztmvfwvbb for malignant neoplasm of colonC[facility]innati [facility] Start: 68-44-8875CKK Vaccine (1 - 1-dose 60+ series)RSV Vaccine (1 - 1-dose 60+ series)[facility]: 13-49-5078IXE Vaccine (1 - Risk 60-74 years 1-dose series)RSV Vaccine (1 - Risk 60-74 years 1-dose series)[facility]: 15-72-0111Pdromammp for malignant neoplasm of colonMercy Health Kings Mills Hospitaltart: 24-06-9554Hefcjwhdjn acid therapyAlpha-1 Antitrypsin Deficiency Screening [facility]: 20-65-9411EYaP,Tdap and Td Vaccines (1 - Tdap)DTaP,Tdap and Td Vaccines (1 - Tdap)[facility]: 11-85-2072Kbzfv microalbumin profileDTaP,Tdap,Td Vaccine (1 - Tdap)[facility]: 80-53-1526Awmqd BMI Follow Up PlanAdult BMI Follow Up PlanNovant Health Huntersville Medical Centertart: 11-31-7869Anwdes PCP Team Chronic Disease VisitAnnual PCP Team Chronic Disease VisitMercy Health Kings Mills Hospitaltart: 92-63-1844Opdrasl ScreeningAnxiety ScreeningMercy Health Kings Mills Hospitaltart: 90-23-2778KB Controlled (<130/80)BP Controlled (<130/80)[facility]: 36-32-0698Ucwdnzossu ScreeningDepression ScreeningMercy Health Kings Mills Hospitaltart: 60-84-6737Nkqjnhzwc C screeningHepatitis C ScreeningMercy Health Kings Mills Hospitaltart: 55-22-4258IuslplqlupJjiruveageHbhgtylpb Clinic Start: 54-00-9134Nhcbxgfawz ScreeningDepression ScreeningHighland District Hospital Start: 09-29-1956Medicare Annual Wellness VisitMedicare Annual Wellness Visit [facility]: 25-17-5919Zoyhdypox for malignant neoplasm of colonNOMS HealthcareStart: 06-59-3329Xoaurii CounselingTobacco Counseling [facility] End: 02-79-4749JYX W Auto Differential panel - BloodCOMPLETE BLOOD COUNT AND DIFFERENTIAL Lab Routine Malignant neoplasm of upper lobe of left lung (HCC) Immunotherapy Abnormal blood chemistry Malaise and fatigue Every 3 weeks for 18 Occurrences starting 11/15/2023 until 11/14/2024[facility] ClinicComment on above:Every 3 weeks for 18 Occurrences starting 11/15/2023 until 11/14/2024 End: 98-38-0328HXN W Auto Differential panel - BloodCOMPLETE BLOOD COUNT AND DIFFERENTIAL Lab Routine Malignant neoplasm of upper lobe of left lung (HCC) Abnormal blood chemistry Malaise and fatigue Once per month for 12 Occurrences starting 04/11/2024 until 04/11/2025[facility] ClinicComment on above:Once per month for 12 Occurrences starting 04/11/2024 until 04/11/2025 End: 19-86-9318Zzxaongnjvjjk metabolic 1999 panel - Serum or PlasmaCOMPREHENSIVE METABOLIC PANEL Lab Routine Malignant neoplasm of upper lobe of left lung (HCC) Immunotherapy Abnormal blood chemistry Malaise and fatigue Every 3 weeks for 18 Occurrences starting 11/15/2023 until 11/14/2024[facility] Work Phone: Comment on above:Every 3 weeks for 18 Occurrences starting 11/15/2023 until 11/14/2024 End: 66-69-5812Bgwgtkezpybrh metabolic 1999 panel - Serum or PlasmaCOMPREHENSIVE METABOLIC PANEL Lab Routine Malignant neoplasm of upper lobe of left lung (HCC) Abnormal blood chemistry Malaise and fatigue Once per month for 12 Occurrences starting 04/11/2024 until 04/11/2025[facility] Work Phone: Comment on above:Once per month for 12 Occurrences starting 04/11/2024 until 04/11/2025 End: 53-38-4124Lclqzkoa [Mass/volume] in Serum or PlasmaCORTISOL, SERUM Lab Routine Malignant neoplasm of upper lobe of left lung (HCC) Immunotherapy Abnorm al blood chemistry Malaise and fatigue Every 6 weeks for 9 Occurrences starting 11/15/2023 until 11/14/2024[facility] ClinicComment on above:Every 6 weeks for 9 Occurrences starting 11/15/2023 until 11/14/2024 End: 01-10-7010Pbjkbhyc [Mass/volume] in Serum or PlasmaCORTISOL, SERUM Lab Routine Malignant neoplasm of upper lobe of left lung (HCC) Abnormal blood chemi stry Malaise and fatigue Once per month for 12 Occurrences starting 04/11/2024 until 04/11/2025[facility] ClinicComment on above:Once per month for 12 Occurrences starting 04/11/2024 until 04/11/2025 End: 76-84-2020Fizxpmofvx includes GFR, serumCreatinine includes GFR, serum Lab Routine Occlusive disease, arterial 1 Occurrences starting 06/27/2023 until 06/26/2024[facility] HospitalComment on above:1 Occurrences starting 06/27/2023 until 06/26/2024 End: 25-61-7808CER COMPLETEECG COMPLETE ECG Routine Lung nodule 1 Occurrences starting 10/24/[address] [place] [address] Work Phone: Comment on above:1 Occurrences starting 10/24/2023 until 10/23/2024ECG COMPLETEECG COMPLETE ECG 10/25/2023 11:15 AM EDThe [facility] End: 07-38-2425RhsclopibyggsbdyYJUY Cardiology Routine Preoperative cardiovascular examination 1 Occurrences starting 02/08/2024 until 02/07/2025 [facility]:1 Occurrences starting 02/08/2024 until 02/07/2025 End: 03-59-8374Bvsnmonjqw A1c in BloodHEMOGLOBIN A1C Lab Routine Malignant neoplasm of upper lobe of left lung (HCC) Immunotherapy Abnormal blood chemistry Malaise and fatigue Every 6 weeks for 9 Occurrences starting 11/15/2023 until 5[facility] ClinicComment on above:Every 6 weeks for 9 Occurrences starting 11/15/2023 until 11/14/2024 End: 21-30-0477GWBK DIFFUSION CAPACITY (DLCO)LUNG DIFFUSION CAPACITY (DLCO) PFT Routine Preoperative testing 1 Occurrences starting 02/08/2024 until 03/09/2025 [facility] CenterComment on above:1 Occurrences starting 02/08/2024 until 03/09/2025 End: 06-98-6664AL Brain WO and W contrast IVMRI BRAIN WO/W IVCON Radiology Routine Immunotherapy Nonintractable headache, unspecified chronicity pattern, unspecified headache type 1 Occurrences starting 08/01/2024 until 08/31/2025 [facility] Work Phone: Comment on above:1 Occurrences starting 08/01/2024 until 08/31/2025 End: 19-93-6699QW Heart Perfusion W stress and W radionuclide IVNM CARDIAC PERF STRESS/PHARM Radiology Routine Preoperative cardiovascular examination 1 Occurrences starting 02/08/[address] [place] [address] Work Phone: Comment on above:1 Occurrences starting 02/08/2024 until 03/09/2025 End: 32-16-5601GS Lung Perfusion quantitativeNM LUNG QUANT PERFUSION Radiology Routine Preoperative testing Encounter for preoperative vascular examination 1 Occurrences starting 02/08/2024 until 03/09/2025[facility] Occurrences starting 02/08/2024 until 03/09/2025OUTSIDE SURG PATH SLIDE REVIEWOUTSIDE SURG PATH SLIDE REVIEW Lab Routine Malignant neoplasm of upper lobe of left lung (HCC) [facility]: Comment on above:Ordered: 10/24/2023atient Education Oxycodone Prednisone [facility] Work Phone: [facility] Work Phone: End: 01-92-8122TEH+CT Guidance for localization of tumor of Skull base to mid-thigh-- W 18F-FDG IVNM PET/CT SKULL-THIGH SUBSEQUENT Radiology Routine Malignant neoplasm of unspecified part of unspecified bronchus or lung (HCC) 1 Occurrences starting 03/13/2024 until 04/12/2025[facility] Work Phone: Comment on above:1 Occurrences starting 03/13/2024 until 04/12/2025 End: 93-99-6602SAF+CT Guidance for localization of tumor of Skull base to mid-thigh-- W 18F-FDG IVNM PET/CT SKULL-THIGH SUBSEQUENT Radiology Routine Syncope and collapse Malignant neoplasm of upperlobe of left lung (HCC) 1 Occurrences starting 07/20/[address] [place] [address] Work Phone: Comment on above:1 Occurrences starting 07/20/2024 until 08/19/2025 End: 36-09-4918Rdskectxn function test Spirometry (Flow Volume Loop) pre/post short acting bronchodilator w/ DLCO (diffusion study)Pulmonary function test Spirometry (Flow Volume Loop) pre/post short acting bronchodilator w/ DLCO ( diffusion study) PFT Routine Squamous carcinoma of lung, left (CMS-HCC) 1 Occurrences starting 10/13/2023 until 10/12/2024[facility] Work Phone: Comment on above:1 Occurrences starting 10/13/2023 until 10/12/2024 End: 70-32-9602NSR MINUTE WALKSIX MINUTE WALK PFT Routine Preoperative testing 1 Occurrences starting 02/08/2024 until 03/09/2025[facility] ClinicComment on above:1 Occurrences starting 02/08/2024 until 03/09/2025 End: 79-38-5285HOFTZEOUUR BASELINE ONLYSPIROMETRY BASELINE ONLY PFT Routine Preoperative testing 1 Occurrences starting 02/08/2024 until 03/09/2025[facility] ClinicComment on above:1 Occurrences starting 02/08/2024 until 03/09/2025 End: 94-72-9673Hibjxdwrizr [Units/volume] in Serum or PlasmaTHYROID STIMULATING HORMONE Lab Routine Malignant neoplasm of upper lobe of left lung (HCC) Immunoth erapy Abnormal blood chemistry Malaise and fatigue Every 6 weeks for 9 Occurrences starting 11/15/2023 until 5[facility] ClinicComment on above:Every 6 weeks for 9 Occurrences starting 11/15/2023 until 11/14/2024 End: 39-09-5784Eqlrhvicczj [Units/volume] in Serum or PlasmaTHYROID STIMULATING HORMONE [...] HealthcareUrine screening for protein Diabetes: Urine Protein ScreeningNOMercy Hospital St. John'sUrine screening for protein Diabetes: Urine Protein ScreeningNOMercy Hospital St. John'sUrine screening for protein Diabetes: Urine Protein ScreeningNOMercy Hospital St. John'sUrine screening for protein Diabetes: Urine Protein ScreeningNOIN HealthcareUrine screening for protein Diabetes: Urine Protein ScreeningNOMercy Hospital St. John'sUrine screening for protein Diabetes: Urine Protein ScreeningNOMercy Hospital St. John'sUrine screening for protein Diabetes: Urine Protein ScreeningNOMercy Hospital St. John'sUrine screening for protein Diabetes: Urine Protein ScreeningSt. [facility] End: 45-18-7752XJ Chest PA and LateralXR CHEST 2V FRONTAL/LAT Radiology Routine Preoperative testing 1 Occurrences starting 02/14/2024 until 03/16/2025[facility] Work Phone: Comment on above:1 Occurrences starting 02/14/2024 until 03/16/2025 End: 08-68-0821TI Chest PA and LateralXR CHEST 2V FRONTAL/LAT Radiology Routine Radiation-induced pulmonary fibrosis (HCC) Shortness of breath 1 Occurrences starting 10/25/2024 until 11/24/2025[facility] Work Phone: Comment on above:1 Occurrences starting 10/25/2024 until 11/24/2025 Immunizations Immunization DateImmunizationNotesCare EbzeyeyiJqbciame87-40-1337sviscojhjtrb polysaccharide vaccine, 23 Nena Miranda MD Work Phone: [facility] CenterObixifeevb44-38-4604bxxbis vaccine recombinant Dick Miranda MD Work Phone: [facility] CenterYuirffhnqq60-10-5961cyjlir vaccine recombinant Dick Miranda MD Work Phone: [facility] CenterOifzjebjbp17-61-2580wnxxacstzdcl conjugate vaccine, 13 Nena Miranda MD Work Phone: [facility] CenterPvfvnudbgd71-75-6063mkphqpfatjep polysaccharide vaccine, 23 Nena Miranda MD Work Phone: [facility] Payers DatePayer CategoryPayerPolicy [id number] 2025Self-pay [id number] 2022Medicare (Managed Care) [id number] 2018Medicare HMOANTHEM MEDICARE Member Subscriber Plan / Payer (Effective 2017-Present) Name: Erin Pena Relation to Subscriber: Self Name: Erin Pena Payer ID: [id number] (NAIC) Group ID: [id number] Type: Not on file Address: [place] [id number] 2..1.188047.3.57[id number] 2..1.112659.3.579.[id number] 2.0.1.162592.3.579.2.65515-88-0111Ibkebrt4057274 2..1.750271.3.579.[id number] 2.0.1.669408.3.579.2.[id number] 2.0.1.275744.3.579.2.66[id number] 2.0.1.590614.3.579.2.855191-51-6452Bgpiwkv625855231 2.16840.1.837743.3.579.2.678739-08-0574Jnzimpq91175237 2.16840.1.692161.3.579.2.119314-00-0578Qzrygcf84809107 2.16.840.1.222732.3.579.2.633284-08-9068Gsvrpbv12875699 2.16840.1.283809.3.579.2.016888-89-0222Efvqfor742515523 2.16840.1.498721.3.579.2.996206-34-9680Ftzlbgy893891412 2.16840.1.492933.3.579.2.731547-17-5362Krdhxaa584936205 2.840.1.393466.3.579.2.662574-64-2285Rwuccxe298407833 2.16840.1.952868.3.579.2.773627-08-0500Zhdgxgj48945164 2.840.1.455444.3.579.2.536234-38-6892Wkaphbe478906660 2.840.1.636811.3.579.2.325139-49-2625Ojklqsz23941776 2.840.1.730628.3.579.2.669157-97-2409Vrdfknb704259119 2.16840.1.853189.3.579.2.615446-96-9735Umzzhta038548296 2.840.1.882332.3.579.2.883810-55-7585Sysmbrb60303232 2.16840.1.253259.3.579.2.668890-08-0484Agyubiz79946791 2.16840.1.881335.3.579.2.130095-08-8438Ggxrnwb66082405 2.16840.1.982669.3.579.2.676335-14-5281Qerhchu81390065 2.16840.1.780217.3.579.2.329850-40-3447Azpistc91089290 2.840.1.390651.3.579.2.837217-18-4390Bgyyxne66473803 2.16840.1.317121.3.579.2.269890-41-6149Lpooora41846711 2.0.1.867045.3.579.2.696312-40-8374Wgwzaii51101814 2.0.1.856699.3.579.2.225467-11-8388Phsvhad63693730 2.0.1.973082.3.579.2.756734-94-3576Tgrntim90366936 2.0.1.379048.3.579.2.420811-97-1926Qxmnqel11318053 2.0.1.526356.3.579.2.246668-21-5542Brgpwig62166272 2.0.1.178952.3.579.2.676482-53-3548Qvownbc10334693 2.840.1.613339.3.579.2.359059-46-6482Qvakhkz38936113 2.840.1.401957.3.579.2.238170-50-2622Svbvuft45835501 2.16840.1.480833.3.579.2.393107-10-4744Mgoqwvr22505263 2.840.1.778912.3.579.2.528680-17-0415Unlejbx97607633 2.16.840.1.303681.3.579.2.398256-70-0062Nylxket8009315 2.16.840.1.069019.3.579.2.504765-95-9036Fybkenq5462058 2.16.840.1.330837.3.579.2.387854-00-3148Sqwcaga3433054 2.16.840.1.959803.3.579.2.891459-11-9027Kdkgoyp2859501 2.16.840.1.199416.3.579.2.996837-82-5367Ckauxzz3112637 2.16.840.1.961115.3.579.2.799980-44-4241Pcrendo2284971 2.16.840.1.893035.3.579.2.222938-56-5406Jkkroxv9811927 2.16.840.1.614033.3.579.2.486685-33-5344Plvtmst2090005 2.16.840.1.201260.3.579.2.489337-43-2680Trpdntl657758783 2.16840.1.238105.3.579.2.362WzcdrvnDJAKB4868034 53972bzg-91r6-0r32-8799-307f0934ms3tRainthf81295773 2.840.1.252467.3.579.2.531 Social History DateTypeDetailFacilityStart: 03-07-1973 End: 05-97-7704Umyvcqr smoking status NHISSmoker (finding)[facility]trStart: 13-03-0146Jvz Assigned At BirthChillicothe Hospitaltart: 09-13-2022 End: 84-60-2013Guoyhom smoking status NHISSmokes tobacco dailyNOMS Healthcare Start: 03-07-1973 End: 94-30-8490Ptgqdnx of tobacco useCigarette SmokerNOIN HealthcareStart: 09-13-2022 End: 12-21-6898Dzlobkjwog smoked current (pack per day) - Reported0.3NOMS HealthcareStart: 09-13-2022 End: 45-84-0547Ovxrpuo use and exposureSmokeless tobacco non-userNOIN Healthcare Start: 04-20-2023 End: 88-97-2480Dposler intakeCurrent drinker of alcohol (finding)[facility] Start: 04-19-2023 End: 07-86-0828Zkspovnoayw, Afraid, Rape, and Kick questionnaire [HARK]NOM HealthcareWithin the last year, have you been afraid of your partner or ex-partner?NoNOMS HealthcareStart: 02-06-2012 End: 69-73-8552Pm you belong to any clubs or organizations such as alevism groups, [employer], [employer] or athletic groups, or school groups?Patient refused NOMS HealthcareAre you now , , , , never or living with a partner?MarriedNOMS HealthcareHow often to you have a drink containing alcohol?Monthly or lessNOMS HealthcareHow many standard drinks containing alcohol do you have on a typical day?1 or 2NOMS HealthcareHow often do you have 6 or more drinks on 1 occasion?NeverNOMS Healthcare(I/We) worried whether (my/our) food would run out before (I/we) got money to buy more.Never trueNOIN HealthcareStart: 89-33-1224Xliejzy CommentSmokes 6-30 mins after waking upNOMS HealthcareStart: 98-01-0963Dmexpqz Commentcaffeine: 2-3 cups per day coffeeNOIN HealthcareStart: 86-25-1904Peg Assigned At BirthNot on fileNOIN HealthcareHistory of tobacco usePassive smokerMarengo ClinicStart: 10-20-2023 Tobacco use and exposureUser of smokeless tobaccoMercy Health Kings Mills Hospitaltart: 10-20-2023 End: 62-62-4359Ormyrtw intakeCurrent non-drinker of alcohol (finding)[facility] ClinicStart: 10-21-2023 End: 92-82-5179Mwxgwki smoking status NHISEx-smokerMercy Health Kings Mills Hospitaltart: 97-53-2846Ttfxzqn CommentQuit September 26Mercy Health Kings Mills Hospitaltart: 10-12-2023 End: 25-89-3397Sumvkrqrv beverage intakeEx-drinker (finding)[facility] Start: 19-62-7951Fqaaloz CommentmoderateProTuscarawas Hospital SystemStart: 10-10-2014 SexMale (finding)ProMPaynesville Hospital SystemStart: 99-30-4701Mhpsjgl smoking status NHISNever smoked tobacco (finding)[facility] Centertart: 34-73-2449MNKW Follow upSDOH Follow upZanesville City Hospital Work Phone: Goals DatePatient GoalDesired Activity/StatePersonal health goalComment on above: Evaluation of progress towards goal: In progress: Would like to DC to home today, await further tests and consults prior to DCPersonal health goal Functional Status QloaIqjsngvrihFmmepiQroiaibt14-16-8781Sxukysl Health Questionnaire 2 item (PHQ- 2) [Reported][facility] CenterCpvhpqjoaq85-45-9364Ggp you deaf, or do you have serious difficulty hearingNo 08/27/2014 11:07 AM Liliya Amaya MA [facility] 58-93-3417Fbg you blind, or do you have serious difficulty seeing, even when wearing glassesNo 08/27/2014 11:07 AM Liliya Amaya MA [facility] 37-37-9248Df you have serious difficulty walking or climbing stairsNo 08/27/2014 11:07 AM Liliya Amaya MA [facility]06-23-2015Do you have difficulty dressing or bathingNo 08/27/2014 11:07 AM Liliya Amaya MA NoCwayne hospitalrocky Ymemgk87-52-9947Kaegwrc of a physical, mental, or emotional condition, do you have difficulty doing errands alone such as visiting a physician's office or shoppingNo 08/27/2014 11:07 AM Liliya Amaya MA [facility] Mental Status DtsgWflkcvxxvbTzwszjXehfbbcv89-22-9407Fdlrjbp of a physical, mental, or emotional condition, do you have serious difficulty concentrating, remembering, or making decisionsNo 08/27/2014 11:07 AM EDT Liliya Mosley MA [facility] Clinical Notes 04-20-2023 to 12-07-2024 Note Date & ZthwYqszEzcprxsg81-51-5368 NoteBarberton Citizens [facility]09-26-2025 NoteBarberton [facility] Hospital09-19-2025 NoteBarberton [facility] Hospital 11-16-2024 NoteBarberton Citizens Hospital09-05-2025 Telephone encounter Note* Telephone Encounter - Noemy Chicas RN - 11/09/2024 2:57 PM EDT Results phoned to pt per Dr Hancock. Noemy Chicas RN [facility] Work Phone: 1(288) 479-2204696506-58-6513 Miscellaneous Notes* Telephone Encounter - Noemy Chicas [...] note were not included. documented in this encounterCincinnati Va Medical Center09-05-2025 Telephone encounter Note * Telephone Encounter - Noemy Chicas RN - 11/09/2024 1:15 PM EDT Please review PET results and advise. Noemy Chicas RN [facility]09-05-2025 Telephone encounter Note* Telephone Encounter - Evangelina Linton - 11/09/2024 12:36 PM EDT Images from the original note were not included. [facility]09-05-2025 Instructions* Patient Instructions* Lo Hancock MD - [...] any questions or concerns. documented in this encounterCincinnati Va Medical Center09-05-2025 NoteBarberton Citizens Hospital09-05-2025 History of Present illness Narrative* Lo Hancock MD - 11/09/2024 12:25 PM EDT Images from the original note were not included. NAME: Erin Pena [facility] NO.: [id number] DATE OF SERVICE: November 09, 2024 (low) Some elements in this clinic [...] in 2 weeks if symptoms persist. 7. manager long term care (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 (Z79.52) Patient [...] Lung, left lower lobe, core biopsy: at [facility] - Invasive squamous cell carcinoma Comment: In [...] internal carotid artery. 09/27/2023-09/29/2023 - Admitted at [facility] with left sided weakness, slurred speech - [...] a dry mouth and has been trying knni-vsq-xmfazyp products for the dry mouth. He had [...] of constipation which was eventually resolved with adxi-ifp-lgtivbn medications. He has had no headaches. 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 Erin's czcdylp-as-lsk is Arie Baker, who is my patient [...] after completed treatment for malignant neoplasm (Z79.52) prison (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 PAST MEDICAL [...] REMV CATARACT EXTRACAP,INSERT LENS S KIT CRAINIOTOMY GE40KENBP SHOULDER ARTHROSCOPY/SURG TYMPANOSTOMY GENERAL ANESTHESIA XR CERVICAL [...] which included preparing to see the patient, ecpi-lm-gjiu patient care, completing clinical documentation, obtaining and/or reviewing separately obtained history, counseling and educating the patient/family/caregiver, ordering medications, tests,or procedures, independently interpreting results (not separately reported), communicating results to the patient/family/caregiver, and care coordination (not separately reported). Lo Hancock MD, CPE [facility]ology [facility] On[facility] Provided at: [place], [place] CC: Gerald Abdi [address] [facility] [address] [facility] [address] Basia Vega MD [address] [facility] [address] Savanah Oreilly MD documented in this encounterCincinnati Va Medical Center09-05-2025 History of Present illness Narrative* Mildred Morillo [...] 1007 PATIENT DISCHARGED TO: Ambulatory patient, left [place] department area. Is this a therapy: No A Diagnostic radioactive procedure has taken place, with no further precautions necessary other than routine body substance precautions. More information regarding radiation safety can be found usingthis link: [email or web address] SIGNATURE: RT Stephanie(Georgina) PATIENT NAME: Erin Pena DATE: November 09, 2024 TIME: 10:25 AM PAGER/CONTACT #: documented in this encounterCincinnati Va Medical Center09-05-2025 NoteBarberton Citizens Hospital09-05-2025 NoteBarberton Citizens Hospital09-02-2025 Telephone encounter Note* Telephone Encounter - Noemy Chicas RN - 11/06/2024 4:46 PM EDT Pt's spouse notified of change and verbalizes understanding. Noemy Chicas RN [facility] Work Phone: 1(294) 869-932009-02-2025 Miscellaneous Notes* Telephone Encounter - Noemy Chicas [...] Chicas RN * Telephone Encounter - Noemy Chicsa RN - 11/06/2024 2:01 PM EDT Call placed to pt's spouse, Mandy. No answer. Message left requesting call back. Noemy Chicas RN * Telephone Encounter - Lo Hancock MD - 11/06/2024 1:45 PM EDT Repeat medrol dose zach - not sure what the pain is from... * Telephone Encounter - Noemy Chicas RN - 11/06/2024 9:52 AM EDT Pt was admitted to [facility] last week w/ [...] meantime? Noemy Chicas RN documented in this encounterCincinnati Va Medical Center09-02-2025 Telephone encounter Note * Telephone Encounter - Evangelina Linton - 11/06/2024 4:43 PM EDT I changed follow up closer to 11:45 am - should be finishing up around this time and BOBBY had the opening. Thanks! Evangelina Linton [facility]09-02-2025 Telephone encounter Note* Telephone Encounter - Noemy Chicas RN - 11/06/2024 2:07 PM EDT Pt's spouse notified and verbalizes understanding. PSS: Pt scheduled for PET at 10 and f/u w/ Bobby at 1 PM on Tuesday. Is there any way he can see Bobby closer to the time of his PET? Noemy Chicas RN [facility]09-02-2025 Telephone encounter Note* Telephone Encounter - Noemy Chicas RN - 11/06/2024 2:01 PM EDT Call placed to pt's spouse, Mandy. No answer. Message left requesting call back. Noemy Chicas RN [facility]09-02-2025 Telephone encounter Note* Telephone Encounter - Lo Hancock MD - 11/06/2024 1:45 PM EDT Repeat medrol dose zach - not sure what the pain is from... [facility]09-02-2025 Telephone encounter Note* Telephone Encounter - Noemy Chicas RN - 11/06/2024 9:52 AM EDT Pt was admitted to [facility] last week w/ [...] advise in the meantime? Noemy Chicas RN [facility]08-26-2025 Telephone encounter Note* Telephone Encounter - Noemy Chicas RN - 10/30/2024 3:34 PM EDT DISCHARGE CALL BACK Today's date: October 30, 2024 Notified of Pt discharge by: Call placed to hospital for follow up. Patient discharged on 10/29/24 from [facility] 3T to Home Primary Cancer Diagnosis: Lung Cancer Admitting Diagnosis: Intractable left sided chest pain/rib pain, Pericardial Effusion. Discharge Summary/SBAR reviewed: Yes Handoff Discussed with Transitional Heel Finisher: N/A Psychosocial Risk Factors: None If patient [...] PET. Patient [facility] Dr Hancock on 11/09/24: Yes Discussed - Pt notes his pain has improved. Gets slightly short of breath w/ activity. Overall feeling better than he did prior to admission. PATIENT EDUCATION / REINFORCEMENT Patient verbalizes understanding of when to seek Medical Attention? YES Patient verbalizes understanding of after hours and weekend phone number? YES Noemy Chicas RN [facility] Work Phone: 1(842) 572-134008-26-2025 Miscellaneous Notes* Telephone Encounter - Noemy Chicas RN - 10/30/2024 3:34 PM EDT DISCHARGE CALL BACK Today's date: October 30, 2024 Notified of Pt discharge by: Call placed to hospital for follow up. Patient discharged on 10/29/24 from [facility] 3T to Home Primary Cancer Diagnosis: Lung Cancer Admitting Diagnosis: Intractable left sided chest pain/rib pain, Pericardial Effusion. Discharge Summary/SBAR reviewed: Yes Handoff Discussed with Transitional Heel Finisher: N/A Psychosocial Risk Factors: None If patient [...] PET. Patient reminded [facility] Hancock on 11/09/24: Yes Discussed - Pt notes his pain has improved. Gets slightly short of breath w/ activity. Overall feeling better than he did prior to admission. PATIENT EDUCATION / REINFORCEMENT Patient verbalizes understanding of when to seek Medical Attention? YES Patient verbalizes understanding of after hours and weekend phone number? YES Noemy Chicas, RN documented in this encounterCincinnati Va Medical Center08-26-2025 Telephone encounter Note * Telephone Encounter - Agata Briceño - 10/30/2024 2:42 PM EDT D/C summary scanned. [facility]08-26-2025 Miscellaneous Notes* Telephone Encounter - Agata Briceño [...] give them a call. Ambar roche PSS * Telephone Encounter - Noemy Chicas [...] effusion too small to drain. Spoke w/ Carlos 3T RN. Reports the pt's pain seems [...] Noemy Chicas RN * [facility] En[facility] - 10/29/2024 9:14 AM EDT Records scanned. * Telephone Encounter - Noemy Chicas RN - 10/29/2024 7:59 AM EDT Voicemail message received from pt's spouse. Reports the pt was admitted to [facility] over the weekend d/t ongoing pain in his lung. Call placed to hospital for update. No answer at the desk. Unable to leave a message. Taryn: Please scan records. Thanks! Noemy Chicas RN documented in this encounterCincinnati Va Medical Center08-26-2025 Telephone encounter Note * Telephone Encounter - Noemy Chicas RN - 10/30/2024 1:39 PM EDT Update: Spoke w/ Shahzad Laguerre RN. Reports the pt was discharged home yesterday. Taryn: Please scan pt's summary. Thanks! Noemy Chicas RN [facility] Work Phone: [phone]) [phone] Telephone encounter Note* Telephone Encounter - Ambar Lux - 10/29/2024 10:24 AM EDT Unfortunately we do not have anything sooner for PET scans. Will keep a eye out for a cancellation.I called and spoke to Sergio and his Anika and let them know if anything opens up sooner I will give them a call. Ambar roche PSS [facility]08-25-2025 Telephone encounter Note* Telephone Encounter - Noemy [...] spouse either way. Thanks! Noemy Chicas RN [facility]08-25-2025 Telephone encounter Note* Telephone Encounter - Agata Briceño - 10/29/2024 9:14 AM EDT Records scanned. [facility]08-25-2025 Telephone encounter Note* Telephone Encounter - Noemy Chicas RN - 10/29/2024 7:59 AM EDT Voicemail message received from pt's spouse. Reports the pt was admitted to [facility] over the weekend d/t ongoing pain in his lung. Call placed to hospital for update. No answer at the desk. Unable to leave a message. Taryn: Please scan records. Thanks! Noemy Chicas RN [facility]08-23-2025 History and physical noteChristopher [place]ille [id number] Hospitalist H&P Signed Patient: Erin Pena MR#: [id number] : 1955 Acct:[id number] Age/Sex: 68 / M Adm Date: 5 Loc: 3T Room: 8D0851-7 Type: ADM IN Attending Dr: Clarence Stevens [...] mg will be continued for diabetes mellitus [facility] Medical History Lung cancer History of gastric ulcer 1975 Problem List clean-up per request of Phys. [facility] Chronic low back pain Problem List clean-up per request of Phys. EHR [facility] Hyperlipidemia Problem List clean-up per request of Phys. EHR [facility] Hypertension Problem List clean-up per request of Phys. EHR [facility] Hypothyroidism Problem List clean-up per request of Phys. 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 Problem List clean-up per request of Phys. EHR [facility] BCC (basal cell carcinoma), face Excision of same Problem List clean-up per request of Phys. EHR [facility] Surgical History History of appendectomy Problem List clean-up per request of Phys. EHR [facility] History of craniotomy 2015- Middle fossa craniotomy ; encephalocele, CSF leak; titanium plate head. Problem List clean-up per request of Phys. EHR [facility] History of phacoemulsification of cataract of both eyes with intraocular lens implantation Problem List clean-up per request of Phys. [facility] [place] History of cervical spinal surgery Posterior cervical [...] PO DAILY hypothyroidism 11/02/19 [History Confirmed 10/27/24] ygrrzyzh-yv-vwsdp 300 mcg-K 60 mcg-lycop 600 mcg-lutein 300 [...] % (Auto) 18.3 % (.) 10/27/24 14:17 Grainger % (Auto) 6.8 % (.) 10/27/24 14:17 Eos % (Auto) 11.7 % (.) 10/27/24 14:17 Baso % (Auto) 0.5 % (.) 10/27/24 14:17 Nucleat RBC Rel Count 0.2 /100 WBC (0-0.5) 10/27/24 14:17 Neut # (Auto) 6.1 x10E3/uL (1.8-7.7) 10/27/24 14:17 Lymph # (Auto) 1.8 x10E3/uL (1.00-4.8) 10/27/24 14:17 Grainger # (Auto) 0.7 x10E3/uL (0.0-0.8) 10/27/24 14:17 [...] Stevens DO 10/27/24 37 Signed By: 10/27/242050 [facility]08-23-2025 Evaluation note* Diagnosis Onset Date Resolution Status Admit Date Atypical chest pain acuteAugust 2024 6:48pmPleural effusionacuteAugust 2024 6:48pm [facility] Work Phone: 1(493) 926-494208-23-2025 Evaluation note* Diagnosis Onset Date Resolution Status Admit Date Atypical chest pain acuteAugust 2024 6:48pmPleural effusionacuteAugust 2024 6:48pm Squamous cell lung canceracuteAugust 2024 6:48pm [facility] Work Phone: 1(975) 552-614608-23-2025 Evaluation note* Diagnosis Onset Date Resolution Status Admit Date Pleural effusion inactiveAugust 2024 6:48pmSquamous cell lung cancerinactiveAugust 2024 6:48pmAtypical chest paindeletedAugust 2024 6:48pmPost herpetic neuralgiaacuteSeptember 2024 1:30pm [facility] Work Phone: 1(374) 375-291408-23-2025 Radiology Diagnostic study [facility] [place] [address] [place] [address] CT Scan Report Signed Patient: Erin Pena MR#: [id number] : 1955 Acct:[id number] Age/Sex: 68 / M ADM Date: 5 Loc: ER Room: Type: [facility] ER Attending Dr: Copies to: eWndy Ochoa MD~ Ordering Provider: Wendy Ochoa MD [...] Chaudhary M.D. 10/27/2024 4:59 PM Dictation Location: [place] [address] Transcribed By: [facility] 10/27/241658 Dictated By: Mihai Chaudhary II, MD 10/27/24 165 Signed By: 10/27/241658 [facility] Work Phone: [phone]) 649-171508-22-2025 NoteIMPRESSION: Newly appearing/progression of left mid and [...] any questions regarding this interpretation, please call [phone]. If you are unable to reach us at the number above, please feel free to contact [facility] eRadiology at [phone].DIVISION OF [id number] History of Present illness Narrative* Noemy Schumacher [...] PATIENT PRESENTS WITH AN IMPLANTABLE OR ATTACHED AIR AND WATER FILLER: No RADIOLOGY DEPARTMENT: General X-ray: Exam(s) Completed: Chest X-Ray PERIPHERAL IV DATA: Not applicable SIGNED BY: RT Stephanie(R) October 26, 2024 8:54 AM documented in this encounterCincinnati Va Medical Center08-22-2025 NoteBarberton Citizens Hospital08-21-2025 Telephone encounter Note* Telephone Encounter - Michelle Mejia APRN.CNP - 10/25/2024 3:14 PM EDT Signed. Michelle Mejia APRN.MAPPING SPECIALIST [facility] Work Phone: [phone]) [phone] Miscellaneous Notes* Telephone Encounter - Michelle Mejia APRN.CNP - 10/25/2024 3:14 PM EDT Signed. Michelle Mejia APRN.MAPPING SPECIALIST * Telephone Encounter - Noemy Chicas RN [...] meantime? Noemy Chicas RN documented in this encounterCincinnati Va Medical Center08-21-2025 Telephone encounter Note * Telephone Encounter - Noemy Chicas RN - 10/25/2024 2:11 PM EDT Discussed w/ Dr Hancock who would like pt to come in for a CXR. Pt's spouse notified and verbalizes understanding. Xray scheduled for tomorrow @ 8 AM. Bobby/CRIS: Order for CXR pended. Noemy Chicas RN [facility]08-21-2025 Telephone encounter Note* Telephone Encounter - Noemy [...] advise in the meantime? Noemy Chicas, RN [facility]08-13-2025 History of Present illness Narrative* Dick Miranda [...] sleeping well and try doxepin. * Dick iMranda MD - 10/17/2024 11:09 AM EDTAssociated Problem(s): [...] Symptoms resolved and monitor. documented in this encounterSt. Louis VA Medical [id number] History of Present illness Narrative* Neha Garcia [...] of upper lobe of left lung (CMS-HCC) Allergies Allergen Reactions Sulfa (Sulfonamide Antibiotics) Current [...] Past Surgical History: Procedure Laterality Date APPENDECTOMY 1969 BELPHAROPTOSIS REPAIR BRAIN SURGERY 2015 CARDIAC CATHETERIZATION [...] Resource Strain: Low Risk (04/19/2023) Received [facility] Overall Financial Resource Strain (CARDIA) Difficulty of Paying Living Expenses: Not hard at all Food Insecurity: No Food Insecurity (09/26/2024) Hunger Screening Food Insecurity - Worry: Never True Food Insecurity - Inability: Never True Transportation Needs: No Transportation Needs (09/27/2023) PRAPARE - Transportation Lack of Transportation (Medical): No Lack of Transportation (Non-Medical): No Physical Activity: Insufficiently Active (04/19/2023) Received from [facility] Exercise Vital Sign Days of Exercise per Week: 3 days Minutes of Exercise per Session: 30 min Stress: Patient Declined (04/19/2023) Received from [facility] [employer] [employer] - Occupational Stress Questionnaire Feeling of Stress : Patient declined Social Connections: Unknown (04/19/2023) Received from [facility] Social Connection and Isolation Panel [NHANES] Frequency of Communication with Friends and Family: Three times a week Frequency of Social Gatherings with Friends and Family: Once a week Attends Anabaptist Services: More than 4 times per year [...] Referring Physician: Dick Miranda MD [address] [place] [address] documented in this [facility]07-22-2025 Miscellaneous Notes* Telephone Encounter - Faith Lane CMA - 09/25/2024 2:57 PM EDT Called patient to remind them to bring their most current copy of their medication list with them to their appt. Patient verbalizes understanding. documented in this [facility]07-22-2025 Telephone encounter Note* Telephone Encounter - Faith Lane CMA - 09/25/2024 2:57 PM EDT Called patient to remind them to bring their most current copy of their medication list with them to their appt. Patient verbalizes understanding. [facility]07-17-2025 Telephone encounter Note* Telephone Encounter - Noemy Chicas RN - 09/20/2024 8:12 AM EDT Results left on pt's personalized voicemail. Advised he call back w/ any questions. Noemy Chicas RN [facility] Work Phone: [phone] Miscellaneous Notes* Telephone Encounter - Noemy Chicas RN - 09/20/2024 8:12 AM EDT Results left on pt's personalized voicemail. Advised he call back w/ any questions. Noemy Chicas RN documented in this encounterCincinnati Va Medical Center07-16-2025 Telephone encounter Note * Telephone Encounter - Bella Anand - 09/19/2024 12:12 PM EDT Patient has been scheduled for Labs tomorrow 09/20 @ 9:00. Bella Mathias [facility]07-16-2025 Miscellaneous Notes* Telephone Encounter - Bella Anand [...] Chicas RN * Telephone Encounter - Arley Donovan PA-C - 09/19/2024 12:03 PM EDT Ok to start with labs and go from there. Labs placed. Arley Donovan PA-C * Telephone Encounter - Noemy Chicas [...] advise? Noemy Chicas RN documented in this encounterCincinnati Va Medical Center07-16-2025 Telephone encounter Note * Telephone Encounter - Noemy Chicas RN - 09/19/2024 12:08 PM EDT Pt notified. Clerical: Pt will be here tomorrow at 9 AM for labs. Please add him to the schedule. Thanks! Noemy Chicas RN [facility] Work Phone: [phone] Telephone encounter Note* Telephone Encounter - Arley Donovan PA-C - 09/19/2024 12:03 PM EDT Ok to start with labs and go from there. Labs placed. Arley Donovan PA-C [facility]07-16-2025 Telephone encounter Note* Telephone Encounter - Noemy [...] labs checked. What would you advise? Noemy Chicas, RN [facility]07-10-2025 History of Present illness Narrative* Verónica Dumont, [...] Outcome Measure: Lower Extremity Functional Scale (LEFS): Rehab Diagnosis: right hip pain and weakness Short Term Goal: To be met in 2 weeks Goal 1: Pt to be instructed in home exercise program. Chief Ultrasound Technologist Goals: To be met in 10 weeks [...] Please sign below. Date: documented in this encounterSt. Louis VA Medical [id number] NoteBarberton Citizens Hospital06-27-2025 History of Present illness Narrative* Jack Hoang MD - 08/31/2024 3:07 PM EDT Radiation Oncology - Follow Up Note PATIENT NAME: Erin Pena PATIENT DIAGNOSIS/PATIENT IDENTIFICATION: Mr. Pena is a 68-year-old gentleman recently diagnosed with anearly stage, [id number], non-small cell lung cancer (SCC) arising in [...] 68-year-old gentleman recently diagnosed with an early stage,[id number], non-small cell lung cancer (SCC) arising in [...] which included preparing to see the patient, icdb-zh-vvsn patient care, and counseling and educating the patient/family/caregiver. This document has been created with the use of voice recognition technology. It may contain inaccuracies, misspellings, inaccurate syntax or inappropriate word context that are a result of the inadequacies/shortcomings of said technology/software. documented in this encounterCincinnati Va Medical Center06-12-2025 Instructions* Patient Instructions* Lo Hancock MD - 08/16/2024 12:14 PM EDT D/C single agent nivolumab RTC in 12 weeks PET/CT and labs same day prior to seeing me. Continue aspirin and Plavix as prescribed by neurology. Follow-up with neurologist as scheduled documented in this encounterCincinnati Va Medical Center06-12-2025 History of Present illness Narrative* Lo Hancock MD - 08/16/2024 11:45 AM EDT Images from the original note were not included. NAME: Erin Pena [facility] NO.: [id number] DATE OF SERVICE: August 16, 2024 (Khadijah) July 20, 2024 (Jackie) Some elements in this clinic note that are critical to medical decision making have been carefully reviewed and included from a prior clinic note dated: June 15, 2024 (Jackie) Referring Provider: Gerald Abdi MD Additional Clinicians involved in Erin Pena's care: Dr. Savanah Oreilly VIRTUAL VISIT PROGRESS NOTE This is a virtual visit using Portfolium[employer] Zoom Video Visit. It required patient- provider interaction for the medical decision making as documented below. I have communicated my name and active licensure. The patient's identity and physical location wereverified at the time of this visit. Either the patient or their legal investment representative has been informed of the risks [...] Lung, left lower lobe, core biopsy: at [facility] - Invasive squamous cell carcinoma Comment: In [...] internal carotid artery. 09/27/2023-09/29/2023 - Admitted at [facility] with left sided weakness, slurred speech - [...] a dry mouth and has been trying ebjl-ywv-guwmszi products for the dry mouth. He had [...] of constipation which was eventually resolved with fzmt-rjz-vouvxwv medications. He has had no headaches. 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 Erin's iegnybp-ge-vvx is Arie Baker, who is my patient [...] REMV CATARACT EXTRACAP,INSERT LENS S KIT CRAINIOTOMY [id number] SHOULDER ARTHROSCOPY/SURG TYMPANOSTOMY GENERAL ANESTHESIA XR CERVICAL [...] which included preparing to see the patient, jqbp-vh-znsr patient care, completing clinical documentation, obtaining and/or reviewing separately obtained history, counseling and educating the patient/family/caregiver, ordering medications, tests,or procedures, independently interpreting results (not separately reported), communicating results to the patient/family/caregiver, and care coordination (not separately reported). Lo Hancock MD, CPE [facility] Provided at: [place], [place] CC: Gerald Abdi [address] [facility] [address] [facility] [address] Basia Vega MD [address] [facility] [address] Savanah Oreilly MD documented in this encounterCincinnati Va Medical Center06-12-2025 NoteBarberton Citizens Hospital06-06-2025 Telephone encounter Note* Telephone Encounter - Guillermina Rodriguez RN - 08/10/2024 2:35 PM EDT Discussed recommendation from Dr Waggoner. Pt verbalized understanding. Pt agreeable to phone call on 08/16. Guillermina Rodriguez RN [facility] Work Phone: [phone] Miscellaneous Notes* Telephone Encounter - Guillermina Rodriguez [...] calls stating he had an MRI at [facility] and would like [...] advise Guillermina Rodriguez RN documented in this encounterCincinnati Va Medical Center06-06-2025 Telephone encounter Note * Telephone Encounter - Delilah Cote - 08/10/2024 1:43 PM EDT Patient is scheduled for a phone visit at 11:45 am on 08/16/2024 for BOBBY to go over results. If you need me to call him I can.. Delilah Cote PSS [facility]06-06-2025 Telephone encounter Note* Telephone Encounter - Lo Hancock MD - 08/10/2024 12:29 PM EDT MRI doesn't really explain headaches unless they are vascular And his PET/CT looked ok - not sure what could be causing the headaches. 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 I can see him next week [facility]06-06-2025 Telephone encounter Note* Telephone Encounter - Guillermina Rodriguez RN - 08/10/2024 9:58 AM EDT Pt calls stating he had an MRI at [facility] and would like to know the results. Please review and advise. Pt states he's been having headaches for some time now and has been associating it with the immunotherapy, and he'd like to meet with Dr Waggoner or talk with him over the phone before his next treatmentregarding the results and plan of care. Please advise Guillermina Rodriguez RN [facility]06-03-2025 Telephone encounter Note* Telephone Encounter - Noemy Chicas RN - 08/07/2024 1:54 PM EDT Pt notified and verbalizes understanding. Denies any new or worsening cough or SOB. Noemy Chicas RN [facility] Work Phone: [phone] Miscellaneous Notes* Telephone Encounter - Noemy Chicas [...] Thanks! Noemy Chicas RN documented in this encounterCincinnati Va Medical Center06-03-2025 Telephone encounter Note * Telephone Encounter - Lo Hancock MD - 08/07/2024 1:28 PM EDT Overall PET looks great - he does have some inflammatory changes in the lungs that show up on the PET. [facility]06-03-2025 Telephone encounter Note* Telephone Encounter - Noemy Chicas RN - 08/07/2024 12:23 PM EDT Pt requesting results of last week's PET. Please review and advise. Thanks! Noemy Chicas RN [facility]06-03-2025 Telephone encounter Note* Telephone Encounter - Ambar Lux - 08/07/2024 11:28 AM EDT [facility] returned my call and Sergio is scheduled 08/08/24 at 11:00 AM for his MRI Ambar B PSS [facility]06-03-2025 Miscellaneous Notes* Telephone Encounter - Ambar Lux - 08/07/2024 11:28 AM EDT [facility] returned my call and Sergio is scheduled 08/08/24 at 11:00 AM for his MRI Ambar B PSS * Telephone Encounter - Ambar Lux - 08/07/2024 10:35 AM EDT Called [facility] to follow up to see if MRI was scheduled. Reached a voicemail and left a message to please return my call Ambar B PSS * Telephone Encounter - Ambar Lux - 08/06/2024 9:36 AM EDT Spoke to [facility] imaging and they state they received approval this morning. They will reach out todayto get patient scheduled Ambar B PSS * Telephone Encounter - Brittni Morrell - 08/02/2024 9:08 AM EDT Order received at [facility], working on prior auth and will call patient. * Telephone Encounter - Brittni Morrell - 08/01/2024 3:20 PM EDT Faxed order to [facility] in [place] * Telephone Encounter - Noemy Chicas RN - 08/01/2024 2:43 PM EDT Pt notified and agrees to MRI. Clerical: Pt would like the MRI done at [facility] in [place]. Please schedule and call pt w/ the appointment. Thanks! Noemy Chicas, RN * Telephone Encounter - Arley Donovan PA-C - 08/01/2024 2:26 PM EDT MRI of the brain would be needed to look at his pituitary gland to look for hypophysitis as well asadditional labs if this is immunotherapy related. Arley Donovan PA-C * Telephone Encounter - Noemy Chicas [...] 08/01/2024 9:46 AM EDT Patient went to [facility] ER. Labs and imaging pulled through care everywhere. ER note not available yet. * Telephone Encounter - Noemy Chicas RN - 07/31/2024 3:10 PM EDT Pt notified and verbalizes understanding. Recommended he go to [facility] ER, but pt would prefer to go to [facility] ER since it's closer to home. Report phoned to Ramu @ [facility] ER. Last office note, recent CT head, and med list faxed. Taryn: Please scan ER records when available. Thanks! Noemy Chicas RN * Telephone Encounter - Arley Donovan PA-C - 07/31/2024 2:39 PM EDT My recommendation stands. Arley Donovan PA-C * Telephone Encounter - Noemy Chicas RN - 07/31/2024 2:24 PM EDT Pt calls w/ c/o persistent headache and fatigue. Rates each one 6-09/13. Notes only a slight improvement since he called last week. Headache is tolerable w/ Tylenol and Drury. Pt denies dizziness or vision changes. It [...] advised? Noemy Chicas RN documented in this encounterCincinnati [facility] Medical Center06-03-2025 Telephone encounter Note * Telephone Encounter - Ambar Lux - 08/07/2024 10:35 AM EDT Called [facility] to follow up to see if MRI was scheduled. Reached a voicemail and left a message to please return my call Ambar Roche PSS [facility]06-02-2025 History of Present illness Narrative* Bina Griffin [...] Past Surgical History: Procedure Laterality Date APPENDECTOMY 1969 BELPHAROPTOSIS REPAIR BRAIN SURGERY 2015 CARDIAC CATHETERIZATION [...] disease, arterial Atheroembolism of bilateral lower extremities ([facility]) Sergio was seen today for follow-up. Diagnoses and all orders for this visit: Internal carotid artery stenosis, bilateral Occlusive disease, arterial - Vas art doppler lwr bilat mult lev/PVR; Future 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) - Vas art doppler lwr bilat mult [...] lev/PVR; Future 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) - Vas art doppler lwr bilat mult [...] Karyn PEREZ Marc, MD documented in this encounterHighland District Hospital06-02-2025 Telephone encounter Note* Telephone Encounter - Jose JAmbar - 08/06/2024 9:36 AM EDT Spoke to [facility] imaging and they state they received approval this morning. They will reach out todayto get patient scheduled Ambar B PSS [facility]05-30-2025 History of Present illness Narrative* Mildred Morillo [...] . No other medications given.. ADMINISTRATION TIME: 06 PATIENT DISCHARGED TO: Ambulatory patient, left [place] department area. Is this a therapy: No A Diagnostic radioactive procedure has taken place, with no further precautions necessary other than routine body substance precautions. More information regarding radiation safety can be found usingthis link: [email or web address] SIGNATURE: RT Stephanie(Georgina) PATIENT NAME: Erin Pena DATE: August 03, 2024 TIME: 8:49 AM PAGER/CONTACT #: documented in this encounterCincinnati Va Medical Center05-30-2025 NoteBarberton Citizens Hospital05-30-2025 NoteBarberton Citizens Hospital05-29-2025 Telephone encounter Note* Telephone Encounter - Brittni Morrell - 08/02/2024 9:08 AM EDT Order received at [facility], working on prior auth and will call patient. [place] [id number] Telephone encounter Note* Telephone Encounter - Brittni Morrell - 08/01/2024 3:20 PM EDT Faxed order to [facility] in [place] [facility]05-28-2025 Telephone encounter Note* Telephone Encounter - Noemy Chicas RN - 08/01/2024 2:43 PM EDT Pt notified and agrees to MRI. Clerical: Pt would like the MRI done at [facility] in [place]. Please schedule and call pt w/ the appointment. Thanks! Noemy Chicas RN [facility] Work Phone: [phone] Telephone encounter Note* Telephone Encounter - Arley Donovan PA-C - 08/01/2024 2:26 PM EDT MRI of the brain would be needed to look at his pituitary gland to look for hypophysitis as well asadditional labs if this is immunotherapy related. Arley Donovan PA-C [facility]05-28-2025 Telephone encounter Note* Telephone Encounter - Noemy [...] What would you advise? Noemy Chicas RN [facility]05-28-2025 Telephone encounter Note* Telephone Encounter - Agata Briceño - 08/01/2024 9:46 AM EDT Patient went to [facility] ER. Labs and imaging pulled through care everywhere. ER note not available yet. [facility]05-27-2025 Telephone encounter Note* Telephone Encounter - Noemy Chicas RN - 07/31/2024 3:10 PM EDT Pt notified and verbalizes understanding. Recommended he go to [facility] ER, but pt would prefer to go to [facility] ER since it's closer to home. Report phoned to Ramu @ [facility] ER. Last office note, recent CT head, and med list faxed. Taryn: Please scan ER records when available. Thanks! Noemy Chicas RN [facility]05-27-2025 Telephone encounter Note* Telephone Encounter - Arley Donovan PA-C - 07/31/2024 2:39 PM EDT My recommendation stands. Arley Donovan PA-C [facility]05-27-2025 Telephone encounter Note* Telephone Encounter - Noemy Chicas RN - 07/31/2024 2:24 PM EDT Pt calls w/ c/o persistent headache and fatigue. Rates each one 6-7. Notes only a slight improvement since he called last week. Headache is tolerable w/ Tylenol and Drury. Pt denies dizziness or vision changes. It [...] other than what was previously advised? Noemy Chicas, RN [facility]05-17-2025 Telephone encounter Note* Telephone Encounter - Michelle Mejia APRN.CNP - 07/21/2024 11:38 AM EDT Note signed. Thanks. Michelle Mejia APRN.MAPPING SPECIALIST [facility]05-17-2025 Miscellaneous Notes* Telephone Encounter - Michelle Mejia APRN.CNP - 07/21/2024 11:38 AM EDT Note signed. Thanks. Michelle Mejia APRN.MAPPING SPECIALIST * Telephone Encounter - Evangelina Linton - 07/20/2024 2:26 PM EDT Taryn/Eduard: Patient is already established with her and needs to be seen back. Can you send recent notes and follow up? Thanks! Appointment with Dr. Robyn WHITTAKER - Skin lesion left ear Evangelina Linton documented in this encounterCincinnati Va Medical Center05-16-2025 Telephone encounter Note * Telephone Encounter - Evangelina Linton - 07/20/2024 2:26 PM EDT Taryn/Eduard: Patient is already established with her and needs to be seen back. Can you send recent notes and follow up? Thanks! Appointment with Dr. Robyn WHITTAKER - Skin lesion left ear Evangelina Linton [facility]05-16-2025 History of Present illness Narrative* Mildred Morillo [...] PATIENT PRESENTS WITH AN IMPLANTABLE OR ATTACHED AIR AND WATER FILLER: No RADIOLOGY DEPARTMENT: CT; Exam(s) Completed: Brain PERIPHERAL IV DATA: Site assessment: Clean,Dry and Intact, Site disposition Discontinued SIGNED BY: RT Stephanie(R) July 20, 2024 2:51 PM documented in this encounterCincinnati Va Medical Center05-16-2025 NoteBarberton Citizens [facility]05-16-2025 NoteBarberton Citizens Hospital05-16-2025 NoteBarberton Citizens Hospital05-16-2025 History of Present illness Narrative* Michelle Mejia, INSPECTOR HEATING AND REFRIGERATION.MAPPING SPECIALIST - 07/20/2024 1:49 PM EDT Images from the original note were not included. NAME: Erin Pena CLINIC NO.: [id number] DATE OF SERVICE: July 20, 2024 (Jackie) Some elements in this clinic note that are critical to medical decision making have been carefully reviewed and included from a prior clinic note dated: June 15, 2024 (Jackie) Referring Provider: Gerald Abdi MD Additional Clinicians [...] Lung, left lower lobe, core biopsy: at [facility] - Invasive squamous cell carcinoma Comment: In [...] internal carotid artery. 09/27/2023-09/29/2023 - Admitted at [facility] with left sided weakness, slurred speech - [...] a dry mouth and has been trying mhfj-ncu-wmfqhhh products for the dry mouth. He had [...] of constipation which was eventually resolved with uuhh-mik-buzegvj medications. He has had no headaches. 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 Erin's euahmlk-kl-mxy is Arie Baker, who is my patient [...] REMV CATARACT EXTRACAP,INSERT LENS S KIT CRAINIOTOMY [id number] SHOULDER ARTHROSCOPY/SURG TYMPANOSTOMY GENERAL ANESTHESIA XR CERVICAL [...] which included preparing to see the patient, gxpz-we-wjjt patient care, completing clinical documentation, obtaining and/or reviewing separately obtained history, performing a medically appropriate examination, counseling and educating the pat ient/family/caregiver, ordering medications, tests, or procedures, independently interpreting results (not separately reported), and communicating results to the patient/family/caregiver. Michelle Mejia APRN.MAPPING SPECIALIST Hematology and Oncology Services Provided at: [place], [place] CC: Angulo Trinidad [address] [facility] [facility] [address] Basia Vega MD [address] [facility] [address] [facility] [address] Savanah Oreilly MD documented in this encounterCincinnati Va [facility] Center05-05-2025 Telephone encounter Note * Telephone Encounter - Noemy Chicas RN - 07/09/2024 11:27 AM EDT Patient phones requesting refills as follows: Last written on 05/18/[address] Hancock. Requested Prescriptions Pending Prescriptions Disp Refills methylphenidate (RITALIN) 10 mg tablet 60 tablet 0 Sig: Take 1 tablet by mouth two times a day for 30 days. Please review and advise. Noemy Chicas RN [facility]05-05-2025 Miscellaneous Notes* Telephone Encounter - Noemy Chicas RN - 07/09/2024 11:27 AM EDT Patient phones requesting refills as follows: Last written on 05/18/[address] Hancock. Requested Prescriptions Pending Prescriptions Disp Refills methylphenidate (RITALIN) 10 mg tablet 60 tablet 0 Sig: Take 1 tablet by mouth two times a day for 30 days. Please review and advise. Noemy Chicas RN documented in this encounterCincinnati Va Medical Center04-23-2025 NoteBarberton Citizens [facility]04-11-2025 NoteBarberton Citizens Hospital04-11-2025 History of Present illness Narrative* Jack Hoang MD - 06/15/2024 11:51 PM EDT Radiation Oncology - Follow Up Note PATIENT NAME: Erin Pena PATIENT DIAGNOSIS/PATIENT IDENTIFICATION: Mr. Pena is a 68-year-old gentleman recently diagnosed with anearly stage, [id number], non-small cell lung cancer (SCC) arising in [...] inadequacies/shortcomings of said technology/software. documented in this encounterCincinnati Va Medical Center04-11-2025 Instructions* Patient Instructions* Joey Scott APRN.CNP - 06/15/2024 2:42 PM EDT Joey Scott CNP Department of Palliative and Supportive Care Palliative Care - Specialty services in symptom management and support For questions or prescription refills, call: [phone] Tuesday - Tuesday 9AM-5PM KRISTINA Alba, RN - Heel Finisher Please call 3-5 days in advance for medication refills Evenings, Weekends, Holidays: [phone] (ask for palliative medicine on-call provider) For appointments, cancellations or reschedule, call: [phone] documented in this encounterCincinnati Va Medical Center04-11-2025 NoteBarberton Citizens Hospital04-11-2025 History of Present illness Narrative* Michelle Mejia APRN.CNP - 06/15/2024 1:11 PM EDT Images from the original note were not included. NAME: Erin Pena [facility] NO.: [id number] DATE OF SERVICE: June 15, 2024 (Jackie) Some elements in this clinic note that [...] Lung, left lower lobe, core biopsy: at [facility] - Invasive squamous cell carcinoma Comment: In [...] internal carotid artery. 09/27/2023-09/29/2023 - Admitted at [facility] with left sided weakness, slurred speech - stroke workup negative 09/25/2023 - ER for bilateral leg weakness Updated Visit, June 15, 2024: Erin Erickson Jean returns for scheduled follow-up. He received cycle 1 nivolumab on 05/18/2024 and tolerated it well. He does not feel well the day after his treatment. He complains of a dry mouth and has been trying nnia-mlc-kstlmdc products for the dry mouth. He had [...] of constipation which was eventually resolved with szwe-roy-dufeckt medications. He has had no headaches. 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 Erin's cmxkajg-of-rwd is Arie Baker, who is my patient [...] REMV CATARACT EXTRACAP,INSERT LENS S KIT CRAINIOTOMY [id number] SHOULDER ARTHROSCOPY/SURG TYMPANOSTOMY GENERAL ANESTHESIA XR CERVICAL [...] which included preparing to see the patient, mkkp-cy-xzbi patient care, completing clinical documentation, obtaining and/or reviewing separately obtained history, performing a medically appropriate examination, counseling and educating the pat ient/family/caregiver, ordering medications, tests, or procedures, independently interpreting results (not separately reported), and communicating results to the patient/family/caregiver. Michelle Mejia APRN.MAXIMILIANO Hematology and Oncology Services Provided at: [place], [place] CC: [place] Abdi [address] [facility] [address] 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 Comleted neoadjuvant chemo / IO late December 2023. Unfortunately does not appear to be a good candidate for surgery. Now on maintenance therapy Subjective I met with Sergio and his in clinic, he is alert oriented x 3 no acute distress. Long-term chronic pain patient managed by his PCP, continues Lyrica and Drury, pain has increased some since starting chemotherapy [...] Ritalin sparingly, provided by oncology Modified ESAS (Reubens Symptom Assessment Scale) Information Provided By: Patient [...] ear normal. Nose: Nose normal. Mouth/Throat: Lips: [place]. Mouth: Mucous membranes are moist. 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) Malignant neoplasm of upper lobe of left lung (HCC) (D49.9, G13.0) Paraneoplastic neuropathy (HCC) - Increase Gabapentin to 200 mg po at bedtime - Continue working with current pain provider for Drury - Can also use Tylenol for mild pain but be aware of Tylenol amount of Drury to keep 24-hour dosageunder 3000 mg (R11.0) Nausea - Can also use Tylenol for mild pain but be aware of Tylenol amount of Drury to keep 24-hour dosageunder 3000 mg (G47.01) [...] via a virtual visit Joey Scott NP, INSPECTOR HEATING AND REFRIGERATION.MAPPING SPECIALIST June 15, 2024 12:47 PM I spent a total of 35 minutes on the date of the service which included preparing to see the patient, ofbn-qq-ufqv patient care, completing clinical documentation, obtaining and/or reviewing separately obtained history, performing a medically appropriate examination, counseling and educating the pat ient/family/caregiver, ordering medications, tests, or procedures, communicating with other HCPs (not separately reported), independently interpreting results (not separately reported), communicatingresults to the patient/family/caregiver, and care coordination (not separately reported). This note may have been partially generated using the NextCloud voice recognition system. While every effort was made to correct voice recognition errors, kindly be aware that some errors may occasionally occur. documented in this encounterCincinnati Va Medical Center04-09-2025 NoteBarberton Citizens Hospital04-09-2025 History of Present illness Narrative* Rhea Goddard, RD - 06/13/2024 7:32 AM EDT Oncology Nutrition Therapy Initial Assessment I have communicated my name and active licensure. The patient's identity and physical location wereverified at the time of this visit. Either the patient or their legal investment representative has been informed of the risks [...] Dosing Weight: 82 kg Estimated kilocalorie needs: 8858-8718 kilocalories determined by 25-30 kcal/kg Estimated protein needs: 82-98 grams determined by 1.0-1.2 g/kg Dosing weight Estimated fluid needs: ~6183-3861 milliliters based on 1 mL per kcal [...] 30 minutes Signed by: Rhea Goddard RD, FIRESETTER, LD documented in this encounterCincinnati Va Medical Center03-26-2025 Telephone encounter Note * Telephone Encounter - Brittni Morrell - 05/30/2024 10:32 AM EDT Spoke to jose Hill to change 0404 to 06/15. [facility]03-26-2025 Miscellaneous Notes* Telephone Encounter - Brittni Morrell [...] with Michelle. Thank you Lenora Sotelo, RN documented in this encounterCincinnati Va Medical Center03-26-2025 Telephone encounter Note * Telephone Encounter - Lenora Sotelo, EWELINA - 05/30/2024 9:31 AM EDT Please contact pt and reschedule his follow up from 06/08 to 06/15 to be the same day as med onc. Thisappt should be after his appt with Michelle. Thank you Lenora Sotelo, RN [facility]03-17-2025 Telephone encounter Note* Telephone Encounter - Evangelina Linton - 05/21/2024 9:31 AM EDT After looking at appts, patient is scheduled on 06/06 following Sharona Bundridge appt. Thanks! Evangelina Linton [facility]03-17-2025 Miscellaneous Notes* Telephone Encounter - Evangelina Linton - 05/21/2024 9:31 AM EDT After looking at appts, patient is scheduled on 06/06 following Sharona Bundridge appt. Thanks! Evangelina Linton * Telephone Encounter - Rhea Goddard RD - 05/21/2024 7:24 AM EDT PSS- please contact patient and schedule appointment with me. Thanks, Rhea Goddard RD, FIRESETTER, LD * Telephone Encounter - Lo Hancock MD - 05/18/2024 5:31 PM EDT Nutrition consult entered. * Telephone Encounter - Shilpi Centeno RN - 05/18/2024 1:50 PM EDT Pt is in tx room for D1C1 Opdivo. Pt reports he is borderline pre diabetic and also has had low potassium frequently. Pt would like to meet with smoking pipe coater. Thank you, Shilpi Centeno RN documented in this encounterCincinnati Va Medical Center03-17-2025 Telephone encounter Note * Telephone Encounter - Rhea Goddard RD - 05/21/2024 7:24 AM EDT PSS- please contact patient and schedule appointment with me. Thanks, Rhea Goddard RD, HOMERO, LD [facility] Work Phone: [phone] Telephone encounter Note* Telephone Encounter - Lo Hancock MD - 05/18/2024 5:31 PM EDT Nutrition consult entered. [facility]03-14-2025 NoteBarberton Citizens Hospital03-14-2025 History of Present illness Narrative* Soumya Velazquez RN - 05/18/2024 3:03 PM EDT Patient education reinforced, printed literature given to him per he and his 's request. Patient states that the patient was told he is pre diabetic and has requested a nutrition referral.lead coater A EWELINA Centeno aware Soumya Velazquez RN documented in this encounterCincinnati Va Medical Center03-14-2025 Telephone encounter Note * Telephone Encounter - Shilpi Centeno RN - 05/18/2024 1:50 PM EDT Pt is in tx room for D1C1 Opdivo. Pt reports he is borderline pre diabetic and also has had low potassium frequently. Pt would like to meet with smoking pipe coater. Thank you, Shilpi Centeno RN [facility]03-14-2025 Instructions* Patient Instructions* Nieves Smith - 05/18/2024 1:28 PM EDT Cycle 1 single agent nivolumab today RTC in 4 weeks for C2 Labs same day Continue Ritalin 10mg BID, as needed documented in this encounterCincinnati Va Medical Center03-14-2025 History of Present illness Narrative* Lo Hancock MD - 05/18/2024 1:00 PM EDT Images from the original note were not included. NAME: Erin Pena [facility] NO.: [id number] DATE OF SERVICE: May 18, 2024 (Khadijah) [...] Lung, left lower lobe, core biopsy: at [facility] - Invasive squamous cell carcinoma Comment: In [...] internal carotid artery. 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 Erin's oyrfxdx-vb-oab is Arie Baker, who is my patient [...] REMV CATARACT EXTRACAP,INSERT LENS S KIT CRAINIOTOMY [id number] SHOULDER ARTHROSCOPY/SURG TYMPANOSTOMY GENERAL ANESTHESIA XR CERVICAL [...] which included preparing to see the patient, uhpl-yi-qobo patient care, completing clinical documentation, obtaining and/or reviewing separately obtained history, performing a medically appropriate examination, counseling and educating the pat ient/family/caregiver, ordering medications, tests, or procedures, communicating with other HCPs (not separately reported), independently interpreting results (not separately reported), communicatingresults to the patient/family/caregiver, and care coordination (not separately reported). Lo Hancock MD, CPE Hematology and Oncology Services Provided at: [facility], [place], [place] Scribe Attestation: This note was scribed [...] direction. CC: [place] Ab[place] [address] [facility] [address] [facility] [address] Basia Vega MD [address] [facility] [address] Savanah Oreilly MD documented in this encounterCincinnati Va Medical Center03-14-2025 [facility]03-12-2025 NoteHNO ID: [id number] Author: ?, ?, ? Service: ? Author Type: ? Type: Progress Notes Filed: 05/16/2024 16:28 Note Text: opened in errorBarberton Citizens Hospital03-07-2025 History of Present illness Narrative* Jack Hoang MD - 05/11/2024 12:00 AM EST [facility] Radiation Oncology Department RADIATION ONCOLOGY - COMPLETION NOTE PATIENT: ERIN PENA: 1955 DATES OF TREATMENT: 05/02/24-05/09/24 DIAGNOSIS: Mr. Pena is a 68-year-old gentleman recently diagnosed with an early stage, [id number], non-small cell lung cancer (SCC) arising in [...] chest in 8-12 weeks. Staff Physician Jack Hoagn M.D. / KG 54:17 AM Electronically Signed cc: Lo Hancock MD ([facility]) Dick Miranda MD [address] [place] [address] Via documented in this encounterCincinnati Va Medical Center03-07-2025 [facility]03-05-2025 [facility]03-05-2025 History of Present illness Narrative* Mihai Woody LMT - 05/09/2024 4:31 PM EST Patient Name: Erin Pena : 1955 Referred For: chair massage Diagnosis: muscle soreness Chief Complaint: Pain Anxiety (pre): 5 Pain (pre): 5 Stress Level (pre): 5 Therapy Provided: Massage Therapy Area(s) Treated: back Anxiety (post): 3 Pain (post): 3 Stress Level (post): 3 Visit Outcome: Better Comments: [facility] Treatment Plan: [facility] Care Team contacted: N/A Signature: Mihai Woody LMT Date: May 09, 2024 Time: 4:31 PM documented in this encounterCincinnati Va Medical Center02-27-2025 [facility]02-27-2025 History of Present illness Narrative* Mihai Woody LMT - 05/03/2024 4:10 PM EST Patient Name: Erin Pena : 1955 Referred For: chair massage Diagnosis: muscle soreness Chief Complaint: Pain Anxiety (pre): 5 Pain (pre): 5 Stress Level (pre): 5 Therapy Provided: Massage Therapy Area(s) Treated: lumbar, cervical focus Anxiety (post): 4 Pain (post): 4 Stress Level (post): 4 Visit Outcome: Better Comments: [facility] Treatment Plan: [facility] Care Team contacted: N/A Signature: Mihai Woody LMT Date: May 03, 2024 Time: 4:10 PM documented in this encounterCincinnati [facility] Center02-26-2025 NoteBarberton Citizens Hospital02-26-2025 Telephone encounter Note* Telephone Encounter - Kalee Daniel - 05/02/2024 1:22 PM EST Patient has been rescheduled for Follow up with Dr Bobby machado and Infusion tx on 05-18-24. Will let thepatient know when he is here on Tuesday for XRT. [facility]02-26-2025 Miscellaneous Notes* Telephone Encounter - Kalee Daniel [...] infusion on 05/10. Thank you Lenora Sotelo, EWELINA documented in this encounterCincinnati Va Medical Center02-26-2025 Telephone encounter Note * Telephone Encounter - Lenora Sotelo RN - 05/02/2024 11:08 AM EST Pt starts XRT Today and will finish 05/11. Per Dr Hoang, please hold immunotherapy until about a weekafter this is complete. Pt is currently scheduled for infusion on 05/10. Thank you Lenora Sotelo RN [facility]02-17-2025 History of Present illness Narrative* Robert King [...] TO DISCUSS ANOTHER INJECTION XRAY 07/26/23 IN [facility] CT PELVIS 07/31/23 @[facility] MRI (R) HIP / L-SPINE 08/09/23 IN [facility] CORTISONE INJ 07/19/23, 07/26/23, 09/27/23, 03/14/24 PREDNISONE [...] DISLOCATION. PRIOR TX BY DR TORRES AT [facility] IN 2013. MOST PAINFUL WHEN ARMS ARE OVERHEAD. + WAKE AT HS. ROM LIMITED AND PAINFUL. HE IS STARTING RADIATION ON 04/24 FOR LUNG CA AND WILL NEED TO HAVE BOTH ARMS OVERHEAD-HE IS CONCERNED HE WILL NOT BE ABLE TO DUE TO PAIN/ROM ALLERGIES: Allergies Allergen Reactions Spiriva Respimat [Tiotropium [place] Monohydrate] Shortness of breath Pt reported having [...] (HYDRODIURIL) 50 mg, Oral, Every morning HYDROcodone-acetaminophen (Drury) 7.5-325 MG tablet 1 tablet, Oral, 4 times daily PRN Ketoconazole (Nizoral) 1 % shampoo 1 Application, Apply externally, 2 times weekly Krill Oil ([place]-3) 500 MG capsule Take by mouth. losartan [...] Tobacco Use: Medium Risk (04/18/2024) Received from [facility] Patient History Smoking Tobacco Use: Former Smokeless [...] develop for requiring urgent evaluation. Robert King INSPECTOR HEATING AND REFRIGERATION-MAPPING SPECIALIST documented in this encounterSt. Louis VA Medical [id number] History of Present illness Narrative* Dick Miranda [...] Advised not to smoke. documented in this encounterSt. Louis VA Medical [id number] NoteBarberton Citizens Hospital02-05-2025 History of Present illness Narrative* Jack Hoang MD - 04/11/2024 11:59 PM EST Radiation Oncology - Follow Up Note PATIENT NAME: Erin Pena PATIENT DIAGNOSIS/PATIENT IDENTIFICATION: Mr. Pena is a 68-year-old gentleman recently diagnosed with anearly stage, [id number], non-small cell lung cancer (SCC) arising in [...] which included preparing to see the patient, jstu-ln-pssu patient care, and counseling and educating the patient/family/caregiver. This document has been created with the use of voice recognition technology. It may contain inaccuracies, misspellings, inaccurate syntax or inappropriate word context that are a result of the inadequacies/shortcomings of said technology/software. documented in this encounterCincinnati Va Medical Center02-05-2025 NoteBarberton Citizens Hospital02-05-2025 History of Present illness Narrative* Olesya Braun RN - 04/11/2024 3:25 PM EST Radiation Therapy - Patient Education Note PATIENT NAME: Erin Pena PATIENT April 11, 2024 [facility] FACILITY/LOCATION: [facility] READINESS TO LEARN Cognitive Ability: Alert and [...] need for social work, van service, and smoking pipe coater. Was PED reviewed? No Patient has an Onbody or Implanted device: No Signed by: Olesya Braun RN documented in this encounterCincinnati Va Medical Center02-05-2025 NoteBarberton Citizens Hospital02-05-2025 History of Present illness Narrative* Steffany Damian LSW - 04/11/2024 2:56 PM EST SOCIAL WORK FOLLOW UP NOTE: [facility] Date of service:04/11/24 Erin Pena is being seen for a follow up social work visit. Today's visit includes: spouse and patient TOPICS ADDRESSED: community [facility] PLAN: Assist with financial support applications, Continue follow up as needed , and Referral to community resource Assigned SW listed in Care Team tab: Yes Message received that the Patient wanted to know if this SW had [facility] Cancer Care Fund forms completed. SW had not received such paperwork. SW offered to complete the necessary paperwork and Patient was agreeable. Paperwork for the Cancer Care Fund was completed and faxed to Kassidy at the [facility]. VITOR Edwards documented in this encounterCincinnati Va Medical Center02-05-2025 Instructions* Patient Instructions* Nieves Smith - 04/11/2024 2:14 PM EST Proceed radiation per Dr. Hoang Repeat labs on first day of radiation RTC on 05/09 or 05/10 to start immunotherapy (nivolumab) Labs same day Continue Ritalin 10mg BID, as needed documented in this encounterCincinnati Va Medical Center02-05-2025 History of Present illness Narrative* Lo Hancock MD - 04/11/2024 1:00 PM EST Images from the original note were not included. NAME: Erin Pena [facility] NO.: [id number] DATE OF SERVICE: April 11, 2024 (Khadijah) [...] Lung, left lower lobe, core biopsy: at [facility] - Invasive squamous cell carcinoma Comment: In [...] internal carotid artery. 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 Erin's nznqmcs-lu-pll is Arie Baker, who is my patient [...] REMV CATARACT EXTRACAP,INSERT LENS S KIT CRAINIOTOMY [id number] SHOULDER ARTHROSCOPY/SURG TYMPANOSTOMY GENERAL ANESTHESIA XR CERVICAL [...] which included preparing to see the patient, boal-au-urqz patient care, completing clinical documentation, obtaining and/or reviewing separately obtained history, performing a medically appropriate examination, counseling and educating the pat ient/family/caregiver, ordering medications, tests, or procedures, communicating with other HCPs (not separately reported), independently interpreting results (not separately reported), communicatingresults to the patient/family/caregiver, and care coordination (not separately reported). Lo Hancock MD, CPE Hematology and Oncology Services Provided at: [place], [place] Scribe Attestation: This note was scribed [...] direction. CC: [place] Abdi [address] [facility] [address] [facility] [address] Basia Vega MD [address] [facility] [address] Savanah Oreilly MD documented in this encounterCincinnati Va Medical Center02-05-2025 NoteBarberton Citizens Hospital02-05-2025 History of Present illness Narrative* Jack Hoang MD - 04/11/2024 12:00 AM EST ERIN PENA [id number] 04/11/2024 [facility] Department of Radiation Oncology SBRT CT Simulation Diagnosis/Disease: Malignant neoplasm of lower lobe, left bronchus or lungC34.32 Therapist: Liseth Handley Consent: Yes Area: LUNG Procedure: A time-out was conducted and recorded by the therapist. Patient simulated at [facility] for SBRT. Compression device in place, and a 4D CT was conducted. Position: SUPINE Thigh Positioner: 0 With Riser 1 Without Riser 1 Abdominal Cuff: SecureVac Cushion Index to Base @ 65 0 T-Vac Cushion Rt. Side Adjust 201 Tri-Vac Cushion Lt. side Adjust 200 [id number] Pump 18 INHALE Wingboard: Head Pad (B [...] HOANG M.D. 53:41 AM documented in this encounterCincinnati Va Medical Center02-05-2025 History of Present illness Narrative* Jack Hoang MD - 04/11/2024 12:00 AM EST ERIN PENA [id number] 04/11/2024 [facility] Department of Radiation Oncology Treatment Planning [...] Hoang M.D. 59:44 PM documented in this encounterCincinnati Va Medical Center02-05-2025 NoteBarberton Citizens Hospital02-05-2025 NoteBarberton Citizens Hospital02-03-2025 History of Present illness Narrative* Binarachel Griffin, DO - 04/09/2024 11:15 AM EST [...] Karyn PEREZ Marc, MD documented in this encounterAdena Regional Medical CenterXL Video Paul Oliver Memorial [id number] History of Present illness Narrative* Wendy Loo [...] PATIENT PRESENTS WITH AN IMPLANTABLE OR ATTACHED AIR AND WATER FILLER: No CREATININE: Creatinine Date Value Ref Range [...] FDG. No other medications given.. ADMINISTRATION TIME: 45 PATIENT DISCHARGED TO: Ambulatory patient, left [place] department area. Is this a therapy: No A Diagnostic radioactive procedure has taken place, with no further precautions necessary other than routine body substance precautions. More information regarding radiation safety can be found usingthis link: [email or web address] SIGNATURE: RT Stephanie(Georgina) PATIENT NAME: rEin Pena DATE: April 03, 2024 TIME: 10:09 AM PAGER/CONTACT #: documented in this encounterCincinnati Va Medical Center01-28-2025 NoteBarberton Citizens Hospital01-28-2025 NoteBarberton Citizens Hospital01-17-2025 Instructions* Patient Instructions* BundridgeJoey APRN.CNP - 03/23/2024 3:12 PM EST Joey Scott CNP Department of Palliative and Supportive Care Palliative Care - Specialty services in symptom management and support For questions or prescription refills, call: [phone] Tuesday - Tuesday 9AM-5PM KRISTINA Alba, RN - Heel Finisher Please call 3-5 days in advance for medication refills Evenings, Weekends, Holidays: [phone] (ask for palliative medicine on-call provider) For appointments, cancellations or reschedule, call: [phone] documented in this encounterCincinnati Va Medical Center01-17-2025 History of Present illness Narrative* Joey Scott APRN.CNP - 03/23/2024 2:30 PM EST PALLIATIVE MEDICINE PROGRESS NOTE SERVICE DATE: 03/23/2024 CHIEF COMPLAINT: Neoplasm Related Pain PERTINENT MEDICAL HISTORY: Erin Pena is a 68 year old male with history of 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 Nose: Nose normal. Mouth/Throat: Lips: [place]. Mouth: Mucous membranes are moist. 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) Malignant neoplasm of upper lobe of left lung (HCC) (D49.9, G13.0) Paraneoplastic neuropathy (HCC) - Increase Gabapentin to 200 mg po at bedtime - Continue working with current pain provider for Drury - Can also use Tylenol for mild pain but be aware of Tylenol amount of Drury to keep 24-hour dosageunder 3000 mg (R11.0) Nausea - Can also use Tylenol for mild pain but be aware of Tylenol amount of Drury to keep 24-hour dosageunder 3000 mg (G47.01) [...] 6-8 Weeks in person Joey Scott NP, INSPECTOR HEATING AND REFRIGERATION.MAPPING SPECIALIST March 23, 2024 2:22 PM I spent a total of 35 minutes on the date of the service which included preparing to see the patient, [id number] patient care, completing clinical documentation, obtaining and/or reviewing separately obtained history, performing a medically appropriate examination, counseling and educating the pat ient/family/caregiver, ordering medications, tests, or procedures, communicating with other HCPs (not separately reported), independently interpreting results (not separately reported), communicatingresults to the patient/family/caregiver, and care coordination (not separately reported). This note may have been partially generated using the NextCloud voice recognition system. While every effort was made to correct voice recognition errors, kindly be aware that some errors may occasionally occur. documented in this encounterCincinnati Va Medical Center01-17-2025 NoteBarberton Citizens Hospital01-13-2025 Telephone encounter Note* Telephone Encounter - Brittni Morrell - 03/19/2024 8:19 AM EST Confirmed with patient appts on 04/11 for De and follow up with BOBBY. Patient confirmed date and times. [facility]01-13-2025 Miscellaneous Notes* Telephone Encounter - Brittni Morrell [...] no special instructions Thanks Deandra Handley RT(R) * Telephone Encounter - Cheyenne Olson - 03/16/2024 3:10 PM EST PET has been scheduled for 04/03/24. Patient is aware. Cheyenne Olson PSS * Telephone Encounter - Noemy Chicas RN - 03/16/2024 12:00 PM EST Clerical/XRT: Pt called to follow up on status of appointments. Please reach out to pt when scheduled. Thanks! Noemy Chicas, EWELINA * Telephone Encounter - Lo Hancock MD [...] like to see pt again? Dr Oreilly: MOR... Noemy Chicas RN * Telephone Encounter - [...] decides. Noemy Chicas RN documented in this encounterCincinnati Va Medical Center01-13-2025 Telephone encounter Note * Telephone Encounter - [...] no special instructions Thanks Deandra Handley RT(R) [facility]01-10-2025 Telephone encounter Note* Telephone Encounter - Cheyenne Olson - 03/16/2024 3:10 PM EST PET has been scheduled for 04/03/24. Patient is aware. ALIVIA Jimenez [facility]01-10-2025 Telephone encounter Note* Telephone Encounter - Noemy Chicas RN - 03/16/2024 12:00 PM EST Clerical/XRT: Pt called to follow up on status of appointments. Please reach out to pt when scheduled. Thanks! Noemy Chicas RN [facility] Work Phone: [phone] Telephone encounter Note* Telephone Encounter - Lo Hancock MD - 03/15/2024 3:42 PM EST I'd like to see him after Radiation appointment [facility]01-09-2025 Telephone encounter Note* Telephone Encounter - Lenora Sotelo RN - 03/15/2024 2:43 PM EST PSS- please work with Rad therapy to schedule follow up after pet. (See below regarding need to schedule this). Follow up should be day with availability to add on a Sim if needed. Thank you Lenora Sotelo RN [facility]01-08-2025 Telephone encounter Note* Telephone Encounter - Lenora Sotelo RN - 03/14/2024 2:[address] Hoang- would you like Simulation scheduled as well? Should this be after PET? Please advise. Lenora Sotelo RN [facility]01-08-2025 Telephone encounter Note* Telephone Encounter - Noemy Chicas RN - 03/14/2024 2:17 PM EST Pt has decided to proceed w/ radiation rather than surgery. Clerical: Pt will need PET as noted below per LANCE. Ang/Rupinder: Please advise on additional follow ups. Bobby: When would you like to see pt again? Dr Oreilly: MOR... Noemy Chicas RN [facility]01-08-2025 Telephone encounter Note* Telephone Encounter - Noemy Chicas RN - 03/14/2024 7:47 AM EST Order placed for PET if he wishes to proceed with definitive radiation therapy, Thanks! Jack [facility]01-07-2025 Telephone encounter Note* Telephone Encounter - Noemy Chicas RN - 03/13/2024 11:32 AM EST FYI: Pt calls to report that he's leaning towards radiation rather than surgery. Plans to make a decision tomorrow. Will call our office w/ update once he decides. Noemy Chicas RN [facility]01-06-2025 NoteBarberton Citizens Hospital01-06-2025 History of Present illness Narrative* Jack Hoang MD - 03/12/2024 11:54 PM EST Images from the original note were not included. Radiation Oncology - New Patient/Consult Note PATIENT NAME: Erin Pena PATIENT Signed: Jack Hoang MD I spent a total of 60 minutes on the date of the service which included preparing to see the patient, [id number] patient care, and counseling and educating the [...] No Lenora Sotelo RN documented in this encounterCincinnati Va Medical Center01-06-2025 NoteBarberton Citizens Hospital01-02-2025 History of Present illness Narrative* Robert [...] ALLERGIES: Allergies Allergen Reactions Spiriva Respimat [Tiotropium [place] Monohydrate] Shortness of breath Pt reported having [...] (HYDRODIURIL) 50 mg, Oral, Every morning HYDROcodone-acetaminophen (Drury) 7.5-325 MG tablet 1 tablet, Oral, 4 times daily PRN Krill Oil ([place]-3) 500 MG capsule Take by mouth. losartan [...] develop for requiring urgent evaluation. Robert King INSPECTOR HEATING AND REFRIGERATION-MAPPING SPECIALIST documented in this encounterSt. Louis VA Medical [id number] History of Present illness Narrative* Gary Owen MD - 03/05/2024 10:30 AM EST Erin Pena Date of visit: 03/05/2024 Date of : 1955 Age: 68 y.o. 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 Hyporeflexia Other affections of shoulder region, not elsewhere classified Essential hypertension Hypothyroidism Hx of fusion of cervical spine Bilateral carotid artery stenosis Claudication [place] Occlusive disease, arterial Right internal carotid occlusion Left-sided weakness Lung mass Chronic obstructive pulmonary disease [place] Malignant neoplasm of upper lobe of left lung [place] Allergies Allergen Reactions Sulfa (Sulfonamide Antibiotics) Current [...] Patient presents with New Patient Pre-op 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 MACHINE OPERATOR REFERRAL PRE OP CLEARANCE DR SAVANAH OREILLY [facility] FAX [phone] TBD, MALIGNANTNEOPLASM OF UPPER LOBE OF LEFT [...] stress and echo 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 [...] SHOULDER ARTHROSCOPY Left 2013 TYMPANOSTOMY TUBE PLACEMENT 2014 TYMPANOSTOMY TUBE PLACEMENT [...] Resource Strain: Low Risk (04/19/2023) Received from [facility] Overall Financial Resource Strain (CARDIA) Difficulty of Paying Living Expenses: Not hard at all Food Insecurity: No Food Insecurity (03/05/2024) Hunger Screening Food Insecurity - Worry: Never True Food Insecurity - Inability: Never True Transportation Needs: No Transportation Needs (09/27/2023) PRAPARE - Transportation Lack of Transportation (Medical): No Lack of Transportation (Non-Medical): No Physical Activity: Insufficiently Active (04/19/2023) Received from [facility] Exercise Vital Sign Days of Exercise per Week: 3 days Minutes of Exercise per Session: 30 min Stress: Patient Declined (04/19/2023) Received from [facility] [employer] [employer] - Occupational Stress Questionnaire Feeling of Stress : Patient declined Social Connections: Unknown (04/19/2023) Received from [facility] Social Connection and Isolation Panel [NHANES] Frequency of Communication with Friends and Family: Three times a week Frequency of Social Gatherings with Friends and Family: Once a week Attends Anabaptist Services: More than 4 times per year [...] neoplasm of upper lobe of left lung ([facility]) - [facility] - [place], [place] 1. Primary hypertension, controlled 2. Hyperlipidemia [...] MIRANDA MD Referring Physician: Olegario Moreira MD [address] [facility] [address] [place] [id number] documented in this encounterHighland District Hospital12-30-2024 Instructions* Patient Instructions* Gary Owen MD - 03/05/2024 10:30 AM EST Wishing you all the best for 2024-- documented in this encounterHighland District Hospital12-27-2024 Miscellaneous Notes* Telephone Encounter - Faith Lane CMA - 03/02/2024 2:38 PM EST Called patient to remind them to bring their most current copy of their medication list with them to their appt. Patient verbalizes understanding. documented in this encounterHighland District Hospital12-27-2024 Telephone encounter Note* Telephone Encounter - Faith Lane CMA - 03/02/2024 2:38 PM EST Called patient to remind them to bring their most current copy of their medication list with them to their appt. Patient verbalizes understanding. [facility]12-20-2024 Instructions* Patient Instructions* Nieves Smith - 02/24/2024 3:27 PM EST Complete pulmonary testing as scheduled on Tuesday Consultation with radiation in 1 week, referral made by Dr. Oreilly [facility] TBD based on radiation plans Start potassium supplement BID for 5 days - rx sent today Continue Ritalin 10mg BID documented in this encounterCincinnati Va Medical Center12-20-2024 History of Present illness Narrative* Lo Hancock MD - 02/24/2024 2:40 PM EST Images from the original note were not included. NAME: Erin Pena [facility] NO.: [id number] DATE OF SERVICE: February 24, 2024 (Khadijah) [...] Lung, left lower lobe, core biopsy: at [facility] - Invasive squamous cell carcinoma Comment: In [...] internal carotid artery. 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 Erin's [id number] is Arie Baker, who is my patient [...] REMV CATARACT EXTRACAP,INSERT LENS S KIT CRAINIOTOMY [id number] SHOULDER ARTHROSCOPY/SURG TYMPANOSTOMY GENERAL ANESTHESIA XR CERVICAL [...] which included preparing to see the patient, [id number] patient care, completing clinical documentation, obtaining and/or reviewing separately obtained history, performing a medically appropriate examination, counseling and educating the pat ient/family/caregiver, ordering medications, tests, or procedures, communicating with other HCPs (not separately reported), independently interpreting results (not separately reported), communicatingresults to the patient/family/caregiver, and care coordination (not separately reported). Lo Hancock MD, CPE Hematology and Oncology Services Provided at: [place], [place] Scribe Attestation: This note was scribed [...] and under my direction. CC: Gerald Abdi [address] [id number] Basia Vega MD [address] [facility] [address] [facility] [id number] Savanah Oreilly MD documented in this encounterCincinnati Va Medical Center12-20-2024 NoteBarberton Citizens Hospital12-16-2024 Telephone encounter Note* Telephone Encounter - Noemy Chicas RN - 02/20/2024 2:26 PM EST FYI: Pt had a NM lung perfusion scan done @ [facility] on Tuesday. Reports he developed fatigue and [...] verbalizes understanding and agrees. Noemy Chicas RN [facility] Work Phone: 1(262) 969-488412-16-2024 Miscellaneous Notes* Telephone Encounter - Noemy Chicas RN - 02/20/2024 2:26 PM EST FYI: Pt had a NM lung perfusion scan done @ [facility] on Tuesday. Reports he developed fatigue and [...] agrees. Noemy Chicas RN documented in this encounterCincinnati Va Medical Center12-09-2024 History of Present illness Narrative* Olegario Moreira MD - 02/13/2024 2:00 PM EST Images from the original note were not included. [address] [id number] Subjective: Patient ID: Erin Pena is a [...] understanding. Olegario Moreira MD documented in this encounterAdena Regional Medical CenterXL Video Paul Oliver Memorial [id number] Instructions* Patient Instructions* Savanah Oreilly MD - 02/08/2024 11:50 AM EST Our office will call you to schedule your: Pulmonary function testing 6 Minute walk test Split lung function testing 2D Echo Cardiac stress test We will refer you to Dr. Jose Maria Pollard in Radiation Oncology at [place]. I will schedule a virtual follow up visit to discuss the results of the above testing and radiationoncology visit. documented in this encounterCincinnati Va Medical Center2024 History of Present illness Narrative* Savanah Oreilly MD - 02/08/2024 11:00 AM EST REASON FOR EVALUATION: Follow up. 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 On 09/25/2023 the patient presented to an outside ED for bilateral leg weakness. From 09/27/2023-09/29/2023 he was admitted at [facility] with left sided weakness, slurred speech. CVA [...] Lung, left lower lobe, core biopsy: at [facility] that showed Invasive squamous cell carcinoma. 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 On 09/25/2023 the patient presented to an outside ED for bilateral leg weakness. From 09/27/2023-09/29/2023 he was admitted at [facility] with left sided weakness, slurred speech. CVA [...] Lung, left lower lobe, core biopsy: at [facility] that showed Invasive squamous cell carcinoma. On [...] hesitate to contact me. documented in this encounterCincinnati Va Medical Center2024 NoteBarberton Citizens Hospital11-21-2024 Telephone encounter Note* Telephone Encounter - Noemy Chicas RN - 01/26/2024 10:49 AM EST Pt notified and verbalizes understanding. Noemy Chicas RN [facility] Work Phone: [phone] 549-204811-21-2024 Miscellaneous Notes* Telephone Encounter - Noemy Chicas [...] takes care of you! Dr. Bobby Monaco. documented in this encounterCincinnati Va Medical Center11-21-2024 Telephone encounter Note * Telephone Encounter - Noemy Chicas RN - 01/26/2024 10:47 AM EST ----- Message from Lo Hancock MD sent at 01/25/2024 7:10 PM EST ----- Scans show a nice response to treatment. - I will plan to see you after Dr. Oreilly takes care of you! Dr. Bobby Monaco. [facility]11-20-2024 History of Present illness Narrative* Precious Cooley, RT(R) - 01/25/2024 9:15 AM EST Radiology [...] PATIENT PRESENTS WITH AN IMPLANTABLE OR ATTACHED AIR AND WATER FILLER: No RADIOLOGY DEPARTMENT: CT; Exam(s) Completed: Chest Abdomen Pelvis PERIPHERAL IV DATA: Site assessment: Clean,Dry and Intact, Site disposition Discontinued SIGNED BY: RT Maryana(R) January 25, 2024 9:48 AM documented in this encounterCincinnati Va Medical Center11-20-2024 NoteBarberton Citizens Hospital11-13-2024 Telephone encounter Note* Telephone Encounter - Noemy Chicas RN - 01/18/2024 11:37 AM EST Spouse calls w/ questions regarding intimacy during treatment. Questions reviewed and answered. No additional questions noted. Noemy Chicas RN [facility] Work Phone: 1(603) 666-451711-13-2024 Miscellaneous Notes* Telephone Encounter - Noemy Chicas RN - 01/18/2024 11:37 AM EST Spouse calls w/ questions regarding intimacy during treatment. Questions reviewed and answered. No additional questions noted. Noemy Chicas RN documented in this encounterCincinnati Va Medical Center11-12-2024 History of Present illness Narrative* Dick Miranda [...] (degenerative disc disease), cervical Relevant Medications HYDROcodone-acetaminophen (Drury) 7.5-325 MG tablet Chronic obstructive pulmonary disease (CMS/HCC) Symptoms stable and use albuterol PRN. Chemotherapy-induced neuropathy (CMS/HCC) Continued pain and try lyrica. Use norco PRN. Relevant Medications pregabalin (Lyrica) 75 MG capsule Encounter for long-term (current) use of medications Relevant Orders Basic metabolic panel documented in this encounterSt. Louis VA Medical [id number] Telephone encounter Note* Telephone Encounter - Noemy Chicas RN - 01/04/2024 9:11 AM EDT Letter signed and pt's spouse notified. Will turkey picker at assistant front office manager tomorrow or Tuesday. Noemy Chicas RN [facility] Work Phone: 1(639) 820-450510-30-2024 Miscellaneous Notes* Telephone Encounter - Noemy Chicas RN - 01/04/2024 9:11 AM EDT Letter signed and pt's spouse notified. Will turkey picker at assistant front office manager tomorrow or Tuesday. Noemy Chicas RN * Telephone Encounter - Noemy Chicas RN - 01/03/2024 1:42 PM EDT Pt's spouse reports they have cancelled travel plans for end january. Need a letter from the physician states he is unable to travel. Letter on Dr's desk for signature. Noemy Chicas RN documented in this encounterCincinnati Va Medical Center10-29-2024 Telephone encounter Note * Telephone Encounter - Noemy Chicas RN - 01/03/2024 1:42 PM EDT Pt's spouse reports they have cancelled travel plans for end january. Need a letter from the physician states he is unable to travel. Letter on 's desk for signature. Noemy Chicas RN [facility]10-29-2024 Telephone encounter Note* Telephone Encounter - Noemy Chicas RN - 01/03/2024 11:28 AM EDT Call placed to pt. No answer. Message left on pt's personal voicemail, informing him it is ok to use the Voltaren cream. Advised he call back w/ any questions. Noemy Chicas RN [facility] Work Phone: [phone]) 142-255310-29-2024 Miscellaneous Notes* Telephone Encounter - Noemy Chicas [...] EDT Yes, I agree. Emery De La Cruz PharmD, BCOP * Telephone Encounter - Noemy Chicas RN - 01/03/2024 9:55 AM EDT Pt's PCP recommended OTC Voltaren cream for pt's hip pain. Pt asks if he is ok to use this while onchemo/IO. Per Up To Date, no interaction noted between Voltaren and Carbo, Taxol, & Nivolumab. Pharmacy: Do you agree? Noemy Chicas RN documented in this encounterCincinnati Va Medical Center10-29-2024 Telephone encounter Note * Telephone Encounter - Florence De La Cruz RPh - 01/03/2024 10:59 AM EDT Yes, I agree. Emery De La Cruz PharmD, BCOP [facility] Work Phone: [phone] 362-253610-29-2024 Telephone encounter Note* Telephone Encounter - Noemy Chicas RN - 01/03/2024 9:55 AM EDT Pt's PCP recommended OTC Voltaren cream for pt's hip pain. Pt asks if he is ok to use this while onchemo/IO. Per Up To Date, no interaction noted between Voltaren and Carbo, Taxol, & Nivolumab. Pharmacy: Do you agree? Noemy Chcias, RN [facility]10-29-2024 History of Present illness Narrative* Erin Holland, DO - 01/03/2024 9:00 AM EDT Images from [...] 07/25 by Robert without relief. Went to [facility] ER 07/30 in severe pain, had [...] in the morning. 30 tablet 11 HYDROcodone-acetaminophen (Drury) 7.5-325 MG tablet Take 1 tablet by mouth 4 (four) times a day as needed for severe pain for up to 23 days 90 tablet 0 Krill Oil ([place]-3) 500 MG capsule Take by mouth. 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 H/O chronic ulcerative colitis H/O TIA (transient ischemic attack) and stroke hemorrhoid surgery 1985 History of colonic polyps Hyperlipidemia (CMS/HCC) Hypertension (CMS/HCC) Hypothyroidism (CMS/HCC) Hypothyroidism, postradioiodine therapy (CMS/HCC) Infectious diarrhea 2000 left CSF leak or otorrhea Low testosterone [...] ALLERGIES: Allergies Allergen Reactions Spiriva Respimat [Tiotropium [place] Monohydrate] Shortness of breath Pt reported having [...] right hip dated August 09, 2023 from [facility].There is mild degenerative changes of the lumbar [...] if he desires a referral to another neonatal specialist we would be happy to make referral, he states he would like to continue his care here. Annabella Holland D.O. documented in this encounterSt. Louis VA Medical [id number] Telephone encounter Note* Telephone Encounter - Noemy Chicas RN - 12/29/2023 4:56 PM EDT Pt notified and verbalizes understanding. Noemy Chicas RN [facility] Work Phone: [phone]) 273-269110-24-2024 Miscellaneous Notes* Telephone Encounter - Noemy Chicas [...] shot? Noemy Chicas RN documented in this encounterCincinnati Va Medical Center10-24-2024 Telephone encounter Note * Telephone Encounter - Lo Hancock MD - 12/29/2023 4:54 PM EDT Both sound good. [facility]10-24-2024 Telephone encounter Note* Telephone Encounter - Noemy Chicas RN - 12/29/2023 3:00 PM EDT Pt calls w/ the following: PCP recommending he resume Plavix. Any objections from your standpoint? Would you recommend he get the flu shot? Noemy Chicas RN [facility]10-24-[facility]24 History of Present illness Narrative* Dick Miranda [...] lyrica but patient declined. documented in this encounterSt. Louis VA Medical [id number] Telephone encounter Note* Telephone Encounter - Shilpi Centeno RN - 12/28/2023 10:56 AM EDT Please review and sign pended Potassium script for patient Potassium 3.3 today. Thank you, Shilpi Centeno RN [facility]10-23-2024 Miscellaneous Notes* Telephone Encounter - Shilpi Centeno RN - 12/28/2023 10:56 AM EDT Please review and sign pended Potassium script for patient Potassium 3.3 today. Thank you, Shilpi Centeno RN documented in this encounterCincinnati Va Medical Center10-23-2024 Instructions* Patient Instructions* Nieves Smith - 12/28/2023 10:12 AM EDT Proceed C3 D1 Carbo/Taxol + Nivo today Decrease Taxol to 175 and Carbo AUC to 5 Start Ritalin 10mg BID CT CAP in 4 weeks Proceed with surgery per Dr. Oreilly RTC with me in 9 weeks Labs same day documented in this encounterCincinnati Va Medical Center10-23-2024 History of Present illness Narrative* Lo Hancock MD - 12/28/2023 9:30 AM EDT Images from the original note were not included. NAME: [facility] NO.: [id number] DATE OF SERVICE: December 28, 2023 (Khadijah) [...] Lung, left lower lobe, core biopsy: at [facility] - Invasive squamous cell carcinoma Comment: In [...] internal carotid artery. 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 Erin's weijopu-rg-muv is Arie Baker, who is my patient [...] REMV CATARACT EXTRACAP,INSERT LENS S KIT CRAINIOTOMY [id number] SHOULDER ARTHROSCOPY/SURG TYMPANOSTOMY GENERAL ANESTHESIA XR CERVICAL [...] which included preparing to see the patient, [id number] patient care, completing clinical documentation, obtaining and/or reviewing separately obtained history, performing a medically appropriate examination, counseling and educating the pat ient/family/caregiver, ordering medications, tests, or procedures, communicating with other HCPs (not separately reported), independently interpreting results (not separately reported), communicatingresults to the patient/family/caregiver, and care coordination (not separately reported). Lo Hancock MD, CPE Hematology and Oncology Services Provided at: [place], [place] Scribe Attestation: This note was scribed [...] and under my direction. CC: Gerald Abdi [address] [facility] [address] [facility] [address] Basia Vega MD [address] [facility] [address] Savanah Oreilly MD documented in this encounterCincinnati Va Medical Center10-23-2024 NoteBarberton Citizens [facility]10-21-2024 Telephone encounter Note* Telephone Encounter - Anna Rasmussen RN - 12/26/2023 9:38 AM EDT Palliative Medicine at Home Care Coordination New Patient Note Nurse introduced self and role of Heel Finisher in Palliative Medicine. Reviewed contact sheet information and on-call process. Nurse educated patient on medication refill process. Nurse encouraged patient to call with any questions/concerns/symptom related issues. Anna Rasmussen RN [facility]10-21-2024 Miscellaneous Notes* Telephone Encounter - Anna Rasmussen RN - 12/26/2023 9:38 AM EDT Palliative Medicine at Home Care Coordination New Patient Note Nurse introduced self and role of Heel Finisher in Palliative Medicine. Reviewed contact sheet information [...] capsule has a refill and they should turkey picker and take 100 mg, taking 2 capsules to equal 200 mg at bedtime. Introduction and contact MC message sent also since they did not have yet our contact information. Both verbalized understanding. Anna Rasmussen RN December 26, 2023 9:38 AM documented in this encounterCincinnati Va Medical Center10-21-2024 Telephone encounter Note * Telephone Encounter - [...] capsule has a refill and they should turkey picker and take 100 mg, taking 2 capsules to equal 200 mg at bedtime. Introduction and contact MC message sent also since they did not have yet our contact information. Both verbalized understanding. Anna Rasmussen RN December 26, 2023 9:38 AM [facility]10-18-2024 Telephone encounter Note* Telephone Encounter - Noemy Chicas RN - 12/23/2023 4:46 PM EDT Pt notified and verbalizes understanding. Noemy Chicas RN [facility] Work Phone: 1(969) 397-790410-18-2024 Miscellaneous Notes* Telephone Encounter - Noemy Chicas [...] agree? Noemy Chicas RN documented in this encounterCincinnati Va Medical Center10-18-2024 Telephone encounter Note * Telephone Encounter - Lo Hancock MD - 12/23/2023 4:40 PM EDT Yes - HgbA1c doesn't always predict the neuropathy and should only be checked every 3 months. [facility]10-18-2024 Telephone encounter Note* Telephone Encounter - Noemy [...] Pt verbalizes understanding. Do you agree? Noemy Chicas, RN [facility]10-18-2024 Instructions* Patient Instructions* Joey Scott APRN.CNP - 12/23/2023 1:42 PM EDT Joey Scott CNP Department of Palliative and Supportive Care Palliative Care - Specialty services in symptom management and support For questions or prescription refills, call: [phone] Tuesday - Tuesday 9AM-5PM KRISTINA Alba, RN - Heel Finisher Please call 3-5 days in advance for medication refills Evenings, Weekends, Holidays: [phone] (ask for palliative medicine on-call provider) For appointments, cancellations or reschedule, call: [phone] documented in this encounterCincinnati Va Medical Center10-18-2024 NoteBarberton Citizens [facility]10-18-2024 History of Present illness Narrative* Joey Scott APRN.CNP - 12/23/2023 11:53 AM EDT PALLIATIVE MEDICINE INITIAL CONSULT SERVICE DATE: 12/23/2023 Referring Physician: Lo Hancock [address] [place] [address] [place] [address] Medical Oncologist: Lo Hancock MD Primary Physician: Dick Miranda MD REASON FOR CONSULT: Neoplasm Pain Subjective Erin Pena is a 68 year old male with history of 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 Current tx Carbo/Taxol + Nivo q3 [...] REMV CATARACT EXTRACAP,INSERT LENS S KIT CRAINIOTOMY [id number] SHOULDER ARTHROSCOPY/SURG TYMPANOSTOMY GENERAL ANESTHESIA XR CERVICAL [...] Types: Cigarettes REVIEW OF SYSTEMS: Modified ESAS (Reubens Symptom Assessment Scale): Information Provided By: Patient [...] ear normal. Nose: Nose normal. Mouth/Throat: Lips: [place]. Mouth: Mucous membranes are moist. 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 Joey Scott DISH MACHINE OPERATOR, INSPECTOR HEATING AND REFRIGERATION.MAPPING SPECIALIST December 23, 2023 11:53 AM I spent a total of 45 minutes on the date of the service which included preparing to see the patient, gtdu-rn-mhon patient care, completing clinical documentation, obtaining and/or reviewing separately obtained history, performing a medically appropriate examination, counseling and educating the pat ient/family/caregiver, ordering medications, tests, or procedures, communicating with other HCPs (not separately reported), independently interpreting results (not separately reported), communicatingresults to the patient/family/caregiver, and care coordination (not separately reported). This note may have been partially generated using the NextCloud voice recognition system. While every effort was made to correct voice recognition errors, kindly be aware that some errors may occasionally occur. documented in this encounterCincinnati Va Medical Center10-02-2024 Instructions* Patient Instructions* Nieves Smith - 12/07/2023 10:18 AM EDT Proceed C2 Day1 Carbo/Taxol + Nivo today q 3 weeks x1 Decrease Taxol to 175 and Carbo AUC to 5 RTC with me in 3 weeks for C3 treatment Labs same day documented in this encounterCincinnati Va Medical Center10-02-2024 History of Present illness Narrative* Lo Hancock MD - 12/07/2023 9:30 AM EDT Images from the original note were not included. NAME: Erin Pena [facility] NO.: [id number] DATE OF SERVICE: December 07, 2023 ([facility]) Some elements in this clinic note that are critical to medical decision making have been carefully reviewed and included from a prior clinic note dated: November 16, 2023 (Khadijah) Referring Provider: [place] Abdi MD Additional Clinicians involved in Erin Sanderswy's care: DIAGNOSIS: Squamous cell lung ca Left [...] Lung, left lower lobe, core biopsy: at [facility] - Invasive squamous cell carcinoma Comment: In [...] internal carotid artery. 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 Erin's bochjda-xs-lzf is Arie Baker, who is my patient [...] REMV CATARACT EXTRACAP,INSERT LENS S KIT CRAINIOTOMY [id number] SHOULDER ARTHROSCOPY/SURG TYMPANOSTOMY GENERAL ANESTHESIA XR CERVICAL [...] which included preparing to see the patient, aauc-me-lpaa patient care, completing clinical documentation, obtaining and/or reviewing separately obtained history, performing a medically appropriate examination, counseling and educating the pat ient/family/caregiver, ordering medications, tests, or procedures, communicating with other HCPs (not separately reported), independently interpreting results (not separately reported), communicatingresults to the patient/family/caregiver, and care coordination (not separately reported). Lo Hancock MD, CPE Hematology and Oncology Services Provided at: [place], [place] Scribe Attestation: This note was scribed [...] and under my direction. CC: [place] Abdi [address] [address] Basia Vega MD [address] [facility] [id number] documented in this encounterCincinnati Va Medical Center09-26-2024 Telephone encounter Note * Telephone Encounter - Noemy Chicas RN - 12/01/2023 3:48 PM EDT Pt notified and verbalizes understanding. Noemy Chicas RN [facility] Work Phone: [phone]) [phone] Miscellaneous Notes* Telephone Encounter - Noemy Chicas [...] proceed? Noemy Chicas RN documented in this encounterCincinnati Va Medical Center09-26-2024 Telephone encounter Note * Telephone Encounter - Lo Hancock MD - 12/01/2023 3:19 PM EDT Teeth cleaning is fine. [facility]09-24-2024 Telephone encounter Note* Telephone Encounter - Amanda Munoz HUC - 11/29/2023 1:34 PM EDT I called and spoke with the Patient, and have him scheduled to see Sharona for Pall Med on Tue12/23/23at 1 pm. ALIVIA Saini [facility]09-24-2024 Miscellaneous Notes* Telephone Encounter - Amanda Munoz [...] a script was sent to his local [place] pharmacy. Clerical: Please schedule pt w/ Joey for pall med. Thanks! Noemy Chicas RN * Telephone Encounter [...] understanding. Noemy Chicas RN documented in this encounterCincinnati Va Medical Center09-24-2024 Telephone encounter Note * Telephone Encounter - Noemy Chicas RN - 11/29/2023 1:21 PM EDT Pt scheduled to have his teeth cleaned next week. Is he ok to proceed? Noemy Chicas RN [facility]09-24-2024 Telephone encounter Note* Telephone Encounter - Noemy Chicas RN - 11/29/2023 1:13 PM EDT Pt notified and reports that he no longer takes Meloxicam. Agrees to Neurontin and Pall Med. Informed pt that a script was sent to his local [place] pharmacy. Clerical: Please schedule pt w/ Joey for pall med. Thanks! Noemy Chicas RN [facility] Work Phone: 1(973) 723-858509-24-2024 Telephone encounter Note* Telephone Encounter - Lo Hancock MD - 11/29/2023 12:31 PM EDT Let's give him neurontin 100 mg at night. He's already on Mobic, so avoid ibuprofen or motrin Pall med would be helpful as he's on quite a few other meds as well. [facility]09-24-2024 Telephone encounter Note* Telephone Encounter - Noemy [...] shedding. Pt verbalizes understanding. Noemy Chicas RN [facility]09-19-2024 History of Present illness Narrative* Prudence Chin RN - 11/24/2023 10:01 AM EDT Pt labs reviewed per Bobby. No needs/concerns at this time. Pt provided copy. Pt scheduled for massage tomorrow and wanted to verify no concerns, discussed with Bobby and pt is okay to have done. Prudence Chin RN documented in this encounterCincinnati Va Medical Center09-17-2024 Telephone encounter Note * Telephone Encounter - Noemy Chicas RN - 11/22/2023 10:08 AM EDT Pt notified and verbalizes understanding. Noemy Chicas RN [facility] Work Phone: [phone]) 138-864809-17-2024 Miscellaneous Notes* Telephone Encounter - Noemy Chicas [...] after hours number protocol. Noemy Chicas, RN documented in this encounterCincinnati Va Medical Center09-17-2024 Telephone encounter Note * Telephone Encounter - Lo Hancock MD - 11/22/2023 9:58 AM EDT Agree with your initial assessment. [facility]09-16-2024 Telephone encounter Note* Telephone Encounter - Noemy Chicas RN - 11/21/2023 3:42 PM EDT Pt c/o acid reflux since starting treatment. Happens primarily at night when laying flat. Advised he sleep w/ his head elevated. Suggested he start Prilosec OTC q day as well. Any other suggestions? Pt also c/o generalized body aches. Rates his pain 8-910. Has Vicodin at home that he takes twice daily. Pt states he doesn't normally need to take a morning does of Vicodin, but the aches have beenbad since treatment. Reassured pt that his symptoms should begin to improved the farther out we getfrom treatment. Any other recommendations at this time? Noemy Chicas RN [facility]09-16-2024 Telephone encounter Note* Telephone Encounter - Noemy [...] c/o generalized body aches. Rates his pain 8-10. Taking Vicodin BID. Fever: No Chills: No [...] after hours number protocol. Noemy Chicas RN [facility]09-13-2024 Telephone encounter Note* Telephone Encounter - Dick iMranda MD - 11/18/2023 12:[address] [facility] CenterMwdgsndabs58-07-1562 Miscellaneous Notes* Telephone Encounter - Dick Miranda MD - 11/18/2023 12:26 PM EDT documented in this encounterSt. Louis VA Medical [id number] History of Present illness Narrative* Steffany Damian [...] NETWORK: Social Connections: Unknown (04/19/2023) Received from [facility], [facility] Social Connection and Isolation Panel [NHANES] Frequency of Communication with Friends and Family: Three times a week Frequency of Social Gatherings with Friends and Family: Once a week Attends Anabaptist Services: More than 4 times per year Active Member of Clubs or Organizations: Patient declined Attends Club or Organization Meetings: Patient declined Marital Status: Marital status: 34 years Child/Children: Yes. How many? 2 sons outdoor emergency care technician arrangements needed: No Grandchild(melanie): none Home Health Provider: No Community Services: No Aimee Identified: Yes Congregation/Spirituality: Scientologist Is a member of [employer] in [place], [place]. Are these practices or beliefs that may affect or influence treatment? Yes EMPLOYMENT/FINANCIAL/HEALTH INSURANCE: Employment: Retired Income source: Social Security Insurance: Medicare only Prescription coverage: Yes Is the patient appropriate for referral to [facility] Assistance program? No Financial Distress: No : No FOOD INSECURITY Within the past year, have you worried about how you would buy or obtain food? No LIVING ARRANGEMENTS: Type: House- independent colonial Resides with: Mandy Transportation Needs: No Transportation Needs (09/27/2023) Received from [email or web address], [employer] PRAPARE - Transportation Lack of Transportation (Medical): [...] the agent Health Care Durable Power of Religious Educator: Yes Scanned into EPIC: Yes, Mandy is the agent Guardianship: NA Scanned into EPIC:NA Reasons Advanced Directives were not Addressed: NA Goals of Care Date of Discussion: 11/16/2023 Advance Directives are on file SIGNATURE: BLANCA Edwards PATIENT NAME: Erin Pena DATE: November 16, 2023 TIME: 2:45 PM PAGER/CONTACT #: COPING STATUS: Stress: Patient Declined (04/19/2023) Received from [employer], [employer] [facility] - Occupational Stress Questionnaire Feeling of Stress : Patient declined Coping Strengths: supportive relationships with immediate family, with friends, and with alevism spirituality successful managing past crises hopefulness self [...] diagnosis of lung cancer. Patient lives in [place], [place] with his Mandy. Patient is retired. [...] tab: Yes VITOR Edwards documented in this encounterCincinnati [facility] Medical Center09-11-2024 History of Present illness Narrative* Steffany Damian LSW - 11/16/2023 2:10 PM EDT Opened in error. documented in this encounterCincinnati Va Medical Center09-11-2024 Telephone encounter Note * Telephone Encounter - Evelyn Chavez - 11/16/2023 10:44 AM EDT Patient is active with [employer] Medicare Advantage, LOC 60%, $1,000 deductible has $1,000 remaining, $5,500 OOP has $3,800.19 remaining. Estimate shows patient financial responsibility is $3,038.49 foreach treatment in 2023 until oop max is reached. Called the patient to discuss, left a voicemail toreturn call. Reference #[id number]. Also sent Cost Facit through [employer] [facility]09-11-2024 Miscellaneous Notes* Telephone Encounter - Evelyn Chvaez - 11/16/2023 10:44 AM EDT Patient is active with [employer] Medicare Advantage, LOC 60%, $1,000 deductible has $1,000 remaining, $5,500 OOP has $3,800.19 remaining. Estimate shows patient financial responsibility is $3,038.49 foreach treatment in 2023 until oop max is reached. Called the patient to discuss, left a voicemail toreturn call. Reference #[id number]. Also sent Cost Facit through [employer] documented in this encounterCincinnati Va Medical Center09-11-2024 Instructions* Patient Instructions* Nieves Smith - 11/16/2023 9:28 AM EDT Proceed Cycle1 Day1 Carbo/Taxol + Nivo today q 3 weeks x3 David counts on D10, wait for results No clinician visit RTC with me in 3 weeks for C2 treatment Labs same day documented in this encounterCincinnati Va Medical Center09-11-2024 History of Present illness Narrative* Lo Hancock MD - 11/16/2023 9:15 AM EDT Images from the original note were not included. NAME: Erin Pena [facility] NO.: [id number] DATE OF SERVICE: November 16, 2023 (stephaniebrennan) Some elements in this clinic note that [...] [facility] lower [facility] squamous cell [facility] Comment: In [...] internal carotid artery. 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 Erin's yowaszh-vn-bcl is Arie TinocoJared, who is my patient [...] Hypothyroidism 2023: Lung cancer (HCC) Comment: Flores Trinidad 03/14/2012: Other affections of shoulder region, [...] EXTRACAP,INSERT LENS No date: S KIT CRAINIOTOMY [id number] No date: SHOULDER ARTHROSCOPY/SURG No date: TYMPANOSTOMY [...] which included preparing to see the patient, ssph-yr-fgnv patient care, completing clinical documentation, obtaining and/or reviewing separately obtained history, performing a medically appropriate examination, counseling and educating the pat ient/family/caregiver, ordering medications, tests, or procedures, communicating with other HCPs (not separately reported), independently interpreting results (not separately reported), communicatingresults to the patient/family/caregiver, and care coordination (not separately reported). Lo Hancock MD, CPE Hematology and Oncology Services Provided at: [place], [place] Scribe Attestation: This note was scribed [...] and under my direction. CC: [place] Abdi [address] [facility] [address] [facility] [address] Basia Vega MD [address] [facility] [address] [facility] [id number] documented in this encounterCincinnati Va Medical Center09-10-2024 Telephone encounter Note * Telephone Encounter - Noemy Chicas RN - 11/15/2023 4:27 PM EDT Pt would like to meet w/ the smoking pipe coater. Order pended. Noemy Chicas RN [facility]09-10-2024 Miscellaneous Notes* Telephone Encounter - Noemy Chicas RN - 11/15/2023 4:27 PM EDT Pt would like to meet w/ the smoking pipe coater. Order pended. Noemy Chicas RN documented in this encounterCincinnati Va Medical Center09-10-2024 History of Present illness Narrative* Noemy Chicas RN - 11/15/2023 4:22 PM EDT Heel Finisher Pre Chemo Patient identified by name and date of . YES Confirmed date and time for chemotherapy ? YES Other appointments (labs, imaging) discussed? YES Discussed where to park ([place]), charge for parking NO Discussed where to [...] Nutrition Noemy Chicas RN documented in this encounterCincinnati Va Medical Center09-10-2024 Telephone encounter Note * Telephone Encounter - Leona Bernard MA - 11/15/2023 3:41 PM EDT Patient coming in Tuesday11/16/23 for follow up treatment. Please add lab orders. Thanks. Leona Bernard MA [facility]09-09-2024 Telephone encounter Note* Telephone Encounter - Noemy Chicas RN - 11/14/2023 4:00 PM EDT Pt will be in tomorrow for education. Scripts for antiemetics pended. Noemy Chicsa RN [facility] Work Phone: 1(260) 687-783609-09-2024 Miscellaneous Notes* Telephone Encounter - Noemy Chicas RN - 11/14/2023 4:00 PM EDT Pt will be in tomorrow for education. Scripts for antiemetics pended. Noemy Chicas RN documented in this encounterCincinnati Va Medical Center09-09-2024 Telephone encounter Note * Telephone Encounter - Evangelina Linton - 11/14/2023 3:16 PM EDT Patient notified and in agreement. Scheduled education for tomorrow and RV and treatment w/ BOBBY on Tuesday - moved his appt that day to an earlier time to allow for treatment. Thanks! Evangelina Linton [facility]09-09-2024 Miscellaneous Notes* Telephone Encounter - Evangelina Linton - 11/14/2023 3:16 PM EDT Patient notified and in agreement. Scheduled education for tomorrow and RV and treatment w/ BOBBY on Tuesday - moved his appt that day to an earlier time to allow for treatment. Thanks! Evangelina Linton * Telephone Encounter - Evangelina Linton - 11/11/2023 3:58 PM EDT Appointment out to [facility] for coordination. Evangelina Linton * Telephone Encounter - Noemy Chicas RN - 11/11/2023 1:46 PM EDT Clerical: Please see Dr's instructions below. Thanks! Noemy Chicas RN * Telephone Encounter - Noemy Chicas RN - 11/11/2023 1:46 PM EDT Images from the original note were not included. Lo Hancock MD Wudel, Ashley; Hugh Craig MD Cc: [facility] Clerical Pool; [facility] Pharmacy Pool; Noemy Chicas RN Thanks Dex and Juan! [place] Team when he comes back to us, can we get him started on treatment? May have to push his 11/15 appointment out a little further to accommodate education and treatment time. Orders have already been placed for Taxol / Carbo / Nivo. Thanks, V. documented in this encounterCincinnati [facility] Center09-06-2024 Telephone encounter Note * Telephone Encounter - Evangelina Linton - 11/11/2023 3:58 PM EDT Appointment out to [facility] for coordination. Evangelina Linton [facility]09-06-2024 Telephone encounter Note* Telephone Encounter - Noemy Chicas RN - 11/11/2023 1:46 PM EDT Clerical: Please see 's instructions below. Thanks! Noemy Chicas RN [facility] Work Phone: 1(599) 803-838909-06-2024 Telephone encounter Note* Telephone Encounter - Noemy Chicas RN - 11/11/2023 1:46 PM EDT Images from the original note were not included. Lo Hancock MD Wudel, Ashley; Hugh Craig MD Cc: [facility] Clerical Pool; [facility] Pharmacy Pool; Noemy Chicas RN Thanks aRheem! [place] Team when he comes back to us, can we get him started on treatment? May have to push his 11/15 appointment out a little further to accommodate education and treatment time. Orders have already been placed for Taxol / Carbo / Nivo. Thanks, V. [facility]09-05-2024 Instructions* Patient Instructions* Savanah Oreilly MD - 11/10/2023 5:08 PM EDT I will see you at the completion of your laura-adjuvant therapy to review your post treatment scans and plan for definitive surgical resection of your left upper lobe lung cancer. documented in this encounterCincinnati [facility] Center09-04-2024 History of Present illness Narrative* Savanah Oreilly MD - 11/09/2023 1:00 PM EDT REASON FOR EVALUATION: Left upper lobe squamous cell cancer. 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 On 09/25/2023 the patient presented to an outside ED for bilateral leg weakness. From 09/27/2023-09/29/2023 he was admitted at [facility] with left sided weakness, slurred speech. CVA [...] Lung, left lower lobe, core biopsy: at [facility] that showed Invasive squamous cell carcinoma. 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 On 09/25/2023 the patient presented to an outside ED for bilateral leg weakness. From 09/27/2023-09/29/2023 he was admitted at [facility] with left sided weakness, slurred speech. CVA [...] Lung, left lower lobe, core biopsy: at [facility] that showed Invasive squamous cell carcinoma. On [...] hesitate to contact me. documented in this encounterCincinnati [facility] Center08-27-2024 [facility] Patient Name: Erin Pena Procedure Date: 11/01/2023 11:19 AM Date of : 1955 Admit Type: Outpatient Age: 67 Room: [facility] 2 Gender: Male Attending MD: Hugh Craig MD, [id number] Procedure: Bronchoscopy Indications: Mediastinal staging of confirmed [...] physician, the nurse, the anesthesiologist and the chief deputy coroner in the procedure room. Mental Status Examination: [...] [address] and PET scan (more content not included)...[id number] NoteHNO ID: [id number] Author: YIMI RODRIGUEZ DO Service: Anesthesiology Author Type: Resident Type: Anesthesia Procedure Notes Filed: 11/01/2023 12:22 Note Text: ANESTHESIOLOGY PROCEDURE NOTE Airway General Information Procedure Start Time/Medication Administration: 11/01/2023 12:19 PM Procedure End Time: 11/01/2023 12:20 PM Patient location during procedure: OR Timeout Performed Pre-procedure: timeout performed Consent Obtained: Yes Patient identity confirmed: arm band, care executive officer special warfare team and patient Staffing Resident: Yimi Rodriguez DO [...] November 01, 2023 TIME: 12:21 PM CSN: [id number] History of Present illness Narrative* Yakov Shaikh, Research Coordinator - 11/01/2023 12:13 PM EDT Study title: DNA Evaluation of Fragments for Early Interception - Lung Cancer Training Study ([id number] Study) [facility] IRB #: [id number] PI: Roe Avila M.D., Erin Pena is interested in above study and appears to meet all Inclusion/Exclusion criteria at this time. Patient was informed of this study via [id number] discussion. The Informed Consent document was thoroughly [...] DRAWN at consent visit with kit number [id number] on 11/01/2023 at 1115 by Bronch Nurse [...] and lab manual. Yakov Shaikh Research Coordinator [facility] documented in this encounterCincinnati Va Medical Center08-27-2024 Telephone encounter Note * Telephone Encounter - Tommie Mcfadden RN - 11/01/2023 11:53 AM EDT Spoke with patient's spouse, Anika, expressing concern with misread and documented CT from [facility] that report nodule in [facility]WE[facility]. Confirmed our report shows LLL. Anika expressed gratitude for verifying our office received the revised report. Denied further questions or concerns at this time. Tommie Mcfadden RN [facility]08-27-2024 Miscellaneous Notes* Telephone Encounter - Tommie Mcfadden [...] today with Dr. Craig documented in this encounterCincinnati Va Medical Center08-27-2024 Telephone encounter Note * Telephone Encounter - Chaya Gama - 11/01/2023 11:42 AM EDT Patient's , Mandy called and would like a call back regarding a few questions about her 's procedure today with Dr. Craig [facility]08-27-2024 [facility]Fair[facility] Patient Name: Erin Pena Procedure Date: 11/01/2023 11:19 AM Date of : 1955 Admit Type: Outpatient Age: 67 Room: [facility] 2 Gender: Male Attending MD: Hugh Craig MD, [id number] Procedure: Bronchoscopy Indications: Mediastinal staging of confirmed [...] physician, the nurse, the anesthesiologist and the chief deputy coroner in the procedure room. Mental Status Examination: [...] region (level 11L). Impressio (more content not included)...[facility] [id number] History of Present illness Narrative* Nancy Elizondo, INSPECTOR HEATING AND REFRIGERATION.MAPPING SPECIALIST - 10/28/2023 11:38 AM EDT Pre-Bronchoscopy H&P [...] for pre-bronchoscopy evaluation scheduled 11/01/23 with Hugh Cragi. Patient reports suffering from a recent TIA. During work up in [facility], a lung mass was found. TTNA was done which was positive for squamous cell carcinoma. Patient now wishes to transfer his care to [facility] for lung cancer treatment. Has SOB with [...] 2014 d/t CSF leak Chronic pain: on Drury Anxiety: Intubation Risk Factors: Yes Neck Surgery x2: has limited neck rotation Diabetes: No. ECOG PERFORMANCE STATUS: 1- Restricted in physically strenuous activity. Carries out light duty. Past Medical History PAST MEDICAL HISTORY 10/20/2023: Chronic obstructive pulmonary disease (HCC) No date: Hypertension No date: Hypothyroidism 2023: Lung cancer (HCC) Comment: Flores bAdi 03/14/2012: Other affections of shoulder region, not elsewhere classified Immunization History Administered Date(s) Administered COVID-19 original vaccine, age 12+ yr, monovalent ([employer] - PURPLE TOP) 02/18/2021 COVID-19 original vaccine, [...] EXTRACAP,INSERT LENS No date: S KIT CRAINIOTOMY [id number] No date: SHOULDER ARTHROSCOPY/SURG No date: TYMPANOSTOMY [...] COVID-19 original vaccine, age 12+ yr, monovalent ([employer] - PURPLE TOP) 02/18/2021 COVID-19 original vaccine, [...] 402 QTC Calculation (Bazett) 418 Calculated P Corry 52 Calculated R Corry 66 Calculated T Corry 28 Impression NORMAL SINUS RHYTHM LOW VOLTAGE QRS, CONSIDER PULMONARY DISEASE, PERICARDIAL EFFUSION, OR NORMAL VARIANT BORDERLINE ECG Assessment/Plan: 1.) Lung mass Patient has a LLL lung mass which was positive for squamous cell carcinoma via TTNA at [facility]. Agree with plan for EBUS to complete [...] chest pain. Will defer to the interventional heel caser performing the procedure on whetherthe patient needs cardiac clearance prior to proceeding with bronchoscopy. Patient has the following medical conditions which may affect willa-operative course: 2. Chronic obstructive pulmonary disease, unspecified COPD type ([facility]) - Recent PFTs completed at [facility] per patient. - on prn albuterol [...] Future 7. Other chronic pain - On Drury. - Patient reports he usually require more sedation during procedures 8. Former smoker - encouraged smoking cessation 9. PAD (peripheral artery disease) ([facility]) - Follows with vascular at another hospital ([facility]) This consultation note will be communicated to the referring provider. Nancy Elizondo APRN.MAXIMILIANO October 28, 2023, 11:38 AM documented in this encounterCleveland [id number] Telephone encounter Note * Telephone Encounter - Lo Hancock MD - 10/26/2023 9:23 PM EDT No - will need results but planning for carbo / taxol + Nivolumab x 3 cycles. [facility]08-21-2024 Miscellaneous Notes* Telephone Encounter - Lo Hancock [...] used Spirivasince. RX from Lung doc at [facility]. They will notify them as well, for further instruction. Pt denies SOB at this time. Speaks in complete sentences, without audible distress. Bronchoscopy/EBUS/Bx with Dr Craig scheduled 11/01/23. Bobby: Any further recommendations? Prudence Chin RN documented in this encounterCincinnati Va Medical Center08-21-2024 Instructions* Patient Instructions* Dana Crowe APRN.MAXIMILIANO - 10/26/2023 2:42 PM EDT Images from the original note were not included. [facility]est[facility] PATIENT PREOPERATIVE INSTRUCTIONS Hugh Craig MD has scheduled you for your procedure at this surgery center: [facility]: [phone] --[id number] [address]. Please check in on the1st floor at [...] Procedures: - YOU MUST HAVE A RESPONSIBLE CUSTOMER CARE REPRESENTATIVE TAKE YOU HOME. A GEOPHYSICAL DRAFTER OR AGENT BASED MODELER CANNOT BE MADE A RESPONSIBLE CUSTOMER CARE REPRESENTATIVE. - We recommend that a responsible person stays with you overnight to take care of you. - You cannot stay in a hotel alone after outpatient surgery. You will not be permitted to have yoursurgery, if you do not have someone to take care of you. If you already have an Advance Directive, please fax a copy to [phone] or email to for it to be [...] day. Dana Crowe APRN.CNP documented in this encounterCincinnati Va Medical Center08-21-2024 History and physical note * Dana Crowe [...] Monitored per PCP. PAD (peripheral artery disease) ([facility]) Assessment: Known blockage - on baby [...] EXTRACAP,INSERT LENS No date: S KIT CRAINIOTOMY [id number] No date: SHOULDER ARTHROSCOPY/SURG No date: TYMPANOSTOMY [...] Covid Immunization Dates Overdue - Covid-19 Vaccine () Overdue since 11/05/2022 02/18/2021 Imm Admin: COVID-19 original vaccine, age 12+ yr, monovalent ([employer] - PURPLE TOP) 06/02/2020 Imm Admin: COVID-19 original vaccine, full dose, monovalent (MODERNA) 05/02/2020 Imm Admin: COVID-19 original vaccine, full dose, monovalent (MODERNA) REVIEW OF SYSTEMS: PAIN ASSESSMENT: General: No weight loss, malaise or fevers. Neuro: Negative for Headaches Seizures Tumor involving FIELD ARTILLERY OPERATIONS SPECIALIST Parkinson's Disease Multiple Sclerosis + TIA + Impaired balance + H/O CSF leak s/p craini Respiratory: See HPI + Ex Smoker + COPD Cardiovascular: Negative for Recent MO, Angina, Arrhythmia + HTN + HLD + [...] ntains abnormal data COMPLETE BLOOD COUNT Order: [id number] Component Ref Range & Units 3 wk [...] 0.4 X10E9/L 0.2 COMPREHENSIVE METABOLIC PANEL Order: [id number] Component Ref Range & Units 3 wk [...] 402 QTC Calculation (Bazett) 418 Calculated P Corry 52 Calculated R Corry 66 Calculated T Corry 28 Impression NORMAL SINUS RHYTHM LOW VOLTAGE QRS, CONSIDER PULMONARY DISEASE, PERICARDIAL EFFUSION, OR NORMAL VARIANT BORDERLINE ECG Most recent Echo ECHO Order: [id number] Narrative Left Ventricle: Left ventricle appears normal [...] Erin Pena DATE: 10/26/2023 TIME: 2:59 PM [facility]08-21-2024 History and physical note* Dana Crowe APRN.CNP [...] Monitored per PCP. PAD (peripheral artery disease) ([facility]) Assessment: Known blockage - on baby [...] EXTRACAP,INSERT LENS No date: S KIT CRAINIOTOMY [id number] No date: SHOULDER ARTHROSCOPY/SURG No date: TYMPANOSTOMY [...] Covid Immunization Dates Overdue - Covid-19 Vaccine () Overdue since 11/05/2022 02/18/2021 Imm Admin: COVID-19 original vaccine, age 12+ yr, monovalent ([employer] - PURPLE TOP) 06/02/2020 Imm Admin: COVID-19 original vaccine, full dose, monovalent (MODERNA) 05/02/2020 Imm Admin: COVID-19 original vaccine, full dose, monovalent (MODERNA) REVIEW OF SYSTEMS: PAIN ASSESSMENT: General: No weight loss, malaise or fevers. Neuro: Negative for Headaches Seizures Tumor involving FIELD ARTILLERY OPERATIONS SPECIALIST Parkinson's Disease Multiple Sclerosis + TIA + Impaired balance + H/O CSF leak s/p craini Respiratory: See HPI + Ex Smoker + COPD Cardiovascular: Negative for Recent MO, Angina, Arrhythmia + HTN + HLD + [...] ntains abnormal data COMPLETE BLOOD COUNT Order: [id number] Component Ref Range & Units 3 wk [...] 0.4 X10E9/L 0.2 COMPREHENSIVE METABOLIC PANEL Order: [id number] Component Ref Range & Units 3 wk [...] 402 QTC Calculation (Bazett) 418 Calculated P Corry 52 Calculated R Corry 66 Calculated T Corry 28 Impression NORMAL SINUS RHYTHM LOW VOLTAGE QRS, CONSIDER PULMONARY DISEASE, PERICARDIAL EFFUSION, OR NORMAL VARIANT BORDERLINE ECG Most recent Echo ECHO Order: [id number] Narrative Left Ventricle: Left ventricle appears normal [...] 10/26/2023 TIME: 2:59 PM documented in this encounterCincinnati [facility] Medical Center08-21-2024 Telephone encounter Note * Telephone Encounter - Prudence Chin RN - 10/26/2023 12:46 PM EDT Pt called to inform providers that he used Spiriva for the first time Tuesday and developed increased shortness of breath. Pt used Albuterol, and shortness of breath subsided. He has not used Spirivasince. RX from Lung doc at [facility]. They will notify them as well, for further instruction. Pt denies SOB at this time. Speaks in complete sentences, without audible distress. Bronchoscopy/EBUS/Bx with Dr Craig scheduled 11/01/23. Bobby: Any further recommendations? Prudence Chin RN [facility]08-20-2024 Nurse Note* Gayathri Fuentes MA - 10/25/2023 11:25 AM EDT Patient identified by 2 identifiers. EKG performed as ordered. Gayathri Fuentes MA [facility]08-20-2024 Nurse Note* Gayathri Fuentes MA - 10/25/2023 11:25 AM EDT Patient identified by 2 identifiers. EKG performed as ordered. Gayathri Fuentes MA documented in this encounterCincinnati Va Medical Center08-20-2024 History of Present illness Narrative* Lenora Rodrigez RN - 10/25/2023 11:06 AM EDT Spoke with patient and will get his treatment at . Future apt is cancelled. Dr. Abdi updated. ===View-only below this line=== ----- Message ----- From: Gerald Abdi MD Sent: 10/24/2023 1:14 PM EDT To: [place] [facility] Subject: FW: Import Pt will likely have treatment done at [facility]. Please verify. ----- Message ----- From: Ivy Campo CMA Sent: 10/24/2023 12:35 PM EDT To: Gerald Abdi MD Subject: Import Imported by Ivy Campo CMA on 10/24/2023 at 12:35 PM to the following: Scanned Document on 10/24/2023 with Ivy Campo CMA [[id number]] documented in this encounterHighland [facility] Hospital08-20-2024 NoteHNO ID: [id number] Author: ?, ?, ? Service: ? Author Type: ? Type: Progress Notes Filed: 10/25/2023 10:13 Note Text: Patient set up with [facility], and to have EKG thereL[facility] [id number] Telephone encounter Note* Telephone Encounter - Kalee Daniel - 10/25/2023 8:46 AM EDT 2nd opinion pathology requested from [facility] to be sent to [facility] for review. Thank you [facility]08-20-2024 Miscellaneous Notes* Telephone Encounter - Kalee Daniel - 10/25/2023 8:46 AM EDT 2nd opinion pathology requested from [facility] to be sent to [facility] for review. Thank you * Telephone Encounter - Prudence Chin RN - 10/24/2023 1:16 PM EDT Maria A/Kalee: Please complete process Thank you, Prudence Chin, RN * Telephone Encounter - Prudence Chin RN - 10/24/2023 11:06 AM EDT Bobby: Please review and sign pended order for second review * Telephone Encounter - Kalee Daniel - 10/24/2023 9:15 AM EDT The Pathology in the chart is the only pathology at [facility]. Does this need a second opinion from [facility]? Please place Molecular study orders. Thanks for your help. documented in this encounterCincinnati [facility] Medical Center08-19-2024 NoteHNO ID: [id number] Author: ?, ?, ? Service: ? Author Type: ? Type: Progress Notes Filed: 10/24/2023 16:54 Note Text: Called, s/w patient and spouse on the line regarding: Bronchoscopy Request: Procedure Date 11/01/2023 Location: [facility]: [address] [place] [address] Check in: 1st floor Admission Arrival time: Will be call to them the afternoon the day prior to the procedure Parking: Cloud Engineer, or at adjacent Parking garage Advised patient NPO after midnight from evening prior, through procedure time Patient will need a hog driver Scheduling needs: EKG NPV- Scheduled Communication of medication: Is patient on anticoagulants/anti-plt therapy? Yes Plavix or medications alike ok to stop medication for 5 days Provided patient with office number, and time to ask questions, and write down information Provide office # of: [phone] x 5 Also sent a Sandag Chart message with provided informationLovering Colony [facility] Hospital 10-24-2023 History of Present illness Narrative* Zaira Huang - 10/24/2023 4:53 PM EDT Called, s/w patient and spouse on the line regarding: Bronchoscopy Request: Procedure Date 11/01/2023 Location: [facility]: [address] [place] [address] Check in: 1st floor Admission Arrival time: Will be call to them the afternoon the day prior to the procedure Parking: Cloud Engineer, or at adjacent Parking garage Advised patient NPO after midnight from evening prior, through procedure time Patient will need a hog driver Scheduling needs: EKG NPV- Scheduled Communication of medication: Is patient on anticoagulants/anti-plt therapy? Yes Plavix or medications alike ok to stop medication for 5 days Provided patient with office number, and time to ask questions, and write down information Provide office # of: [phone] x 5 Also sent a Sandag Chart message with provided information * Hugh [...] 24, 2023 4:12 PM documented in this encounterCincinnati [facility] Medical Center08-19-2024 NoteHNO ID: [id number] Author: TOMMIE MCFADDEN RN Service: ? Author [...] back method and requested information sent via Valenc[employer]. Message sent per request. IF YES TO EITHER OF ABOVE TWO QUESTIONS PLEASE REFER TO [facility] ANESTHESIA GUIDANCE ON HOLDING Diagnosis/Reason for Bronchoscopy: Recent dx of LLL squamous cell, needs staging EBUS Referred by: Khadijah Reviewed by: NEERAJ Craig MD October 24, 2023 4:12 [facility]08-19-2024 Telephone encounter Note* Telephone Encounter - Prudence Chin RN - 10/24/2023 1:16 PM EDT Maria A/Kalee: Please complete process Thank you, Prudence Chin RN [facility]08-19-2024 Telephone encounter Note* Telephone Encounter - Prudence Chin RN - 10/24/2023 11:06 AM EDT Bobby: Please review and sign pended order for second review [facility]08-19-2024 Telephone encounter Note* Telephone Encounter - Kalee Daniel - 10/24/2023 9:15 AM EDT The Pathology in the chart is the only pathology at [facility]. Does this need a second opinion from [facility]? Please place Molecular study orders. Thanks for your help. [facility]08-19-2024 Telephone encounter Note* Telephone Encounter - Evangelina Linton - 10/24/2023 8:56 AM EDT Images from the original note were not included. Lo Hancock MD Wudel, Leonard, MD; Kalee Daniel; Evangelina Linton; Hugh Craig MD; Wendy Oreilly Thanks Dex - do you want to see him a little later on to assess resectability? Carlos Enrique, Bobby. Previous Messages ----- Message ----- From: Savanah Oreilly MD Sent: 10/24/2023 6:48 AM EDT To: Lo Hancock MD; Hugh Craig MD; * Bobby, Good morning. I looked at the images. Agree, neoadjuvant followed by definitive resection sounds like a good plan. ThanksDex ----- Message ----- From: Lo Hancock MD [...] - [facility] from images and the ammendment is confusing too. Carlos Enrique, Bobby. [facility]08-19-2024 Miscellaneous Notes* Telephone Encounter - Evangelina Linton - 10/24/2023 8:56 AM EDT Images from the original note were not included. Lo Hancock MD Wudel, Leonard, MD; Kalee Daniel; Evangelina Linton; Hugh Craig MD; Wendy Oreilly Thanks Dex - do you want to see him a little later on to assess resectability? Cleo Monacok. Previous Messages ----- Message ----- From: Savanah Oreilly MD Sent: 10/24/2023 6:48 AM EDT To: Lo Hancock MD; Hugh Craig MD; * Josemanuel Waggoner morning. I looked at the images. Agree, [...] - by the way the path from [facility] is discordant in terms of location from images and the ammendment is confusing too. Bobby Monaco. documented in this encounterCincinnati Va Medical Center08-16-2024 Instructions* Patient Instructions* Nieves Baker - 10/21/2023 4:49 PM EDT Referral to Dr. Craig and Dr. Oreilly Obtain pathology from [facility] Molecular studies to be done on outside path documented in this encounterCincinnati Va Medical Center08-16-2024 History of Present illness Narrative* Lo Hancock MD - 10/21/2023 4:30 PM EDT Images from the original note were not included. NAME: Erin Pena [facility] NO.: [id number] DATE OF SERVICE: October 21, 2023 (Khadijah) [...] Craig and Dr. Oreilly Obtain pathology from [facility] Molecular studies to be done on outside path Plan to start neoadjuvant therapy after staging q 3 weeks x3 Needs education and consent Labs on day of start HPI: CASE HISTORY: Reverse Chronological Order 10/21/2023 - PET/CT: Abnormal uptake confined to the left upper lobe mass without evidence for metastatic disease. 10/05/2023 - Lung, left lower lobe, core biopsy: at [facility] - Invasive squamous cell carcinoma Comment: In [...] internal carotid artery. 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 Erin's [id number] is Arie Baker, who is my patient [...] which included preparing to see the patient, [id number] patient care, completing clinical documentation, obtaining and/or reviewing separately obtained history, performing a medically appropriate examination, counseling and educating the pat ient/family/caregiver, ordering medications, tests, or procedures, communicating with other HCPs (not separately reported), independently interpreting results (not separately reported), communicatingresults to the patient/family/caregiver, and care coordination (not separately reported). Lo Hancock MD, CPE Hematology and Oncology Services Provided at: [place], [place] Scribe Attestation: This note was scribed [...] my direction. CC: Gerald Abdi [address] [address] Basia Vega MD [facility] [address] [facility] [id number] documented in this encounterC[facility] History of Present illness Narrative* Estefany Lang, DO - 10/20/2023 12:00 PM EDT Images from the original note were not included. [facility] Patient - Erin Pena Age - 67 y.o. - 1955 [facility] # - [id number] Referring physician: Kassidy Villasenor CNP, Dr. Abdi [...] He is retired. He previously worked at [employer]. He is an active smoker but actively [...] PLACEMENT 2014 TYMPANOSTOMY TUBE PLACEMENT Left 2014 Sulfa (sulfonamide [...] total) by mouth Daily after lunch. 10/02/23 Kassidy Villasenor, INSPECTOR HEATING AND REFRIGERATION-MAPPING SPECIALIST multivit-minerals/ferrous fum (MULTI VITAMIN ORAL) Take by [...] Amended Report Patient Name:ERIN PENA:1955 (Age: 67)Gender:MTaken:4Reported:4Physician(s):Kassidy Villasenor, MAXIMILIANO ([phone])Copy To:ODETTE BAPTISTE, United Hospitalession #:[id number]. Rec. #:[id number]: #[id number] Amended Final Pathologic Diagnosis Lung, left lower [...] the case was signed out, an oncology survey data technician, Liliya Santana, notified me that the tumor should be located in left lower lobe. Report Electronically Signed Out 10/10/2023brianne Mendoza MD PFT Results: Radiology CT CHEST [...] appropriate clinical setting. Dr. Estefany Lang DO. [facility] Physicians Pulmonary & Critical Care Office: [phone] documented in [facility] History of Present illness Narrative* Gerald Abdi MD - 10/13/2023 3:30 PM EDT Images from the original note were not included. [facility] 10/13/23 Erin Pena is a 67 y.o. [...] Resource Strain: Low Risk (04/19/2023) Received from [facility] [employer], [facility] Overall Financial Resource Strain (CARDIA) Difficulty of Paying Living Expenses: Not hard at all Food Insecurity: No Food Insecurity (09/27/2023) Hunger Screening Food Insecurity - Worry: Never True Food Insecurity - Inability: Never True Transportation Needs: No Transportation Needs (09/27/2023) PRAPARE - Transportation Lack of Transportation (Medical): No Lack of Transportation (Non-Medical): No Physical Activity: Insufficiently Active (04/19/2023) Received from [facility] Exercise Vital Sign Days of Exercise per Week: 3 days Minutes of Exercise per Session: 30 min Stress: Patient Declined (04/19/2023) Received from [facility] [employer] [facility] - Occupational Stress Questionnaire Feeling of Stress : Patient declined Social Connections: Unknown (04/19/2023) Received from [facility] Social Connection and Isolation Panel [NHANES] Frequency of Communication with Friends and Family: Three times a week Frequency of Social Gatherings with Friends and Family: Once a week Attends Anabaptist Services: More than 4 times per year [...] Refills: 0 Dose: 75 mg Signed by: Kassidy Villasenor, INSPECTOR HEATING AND REFRIGERATION-MAPPING SPECIALIST 75 mg, oral, Daily Commonly known as: [...] Refills: 0 Dose: 850 mg Signed by: SHAKA DaviesMAPPING SPECIALIST 850 mg, oral, Daily after lunch Commonly [...] to as low as reasonably achievable. Workst ation:[id number] Finalized by Eh Lorenz on 09/28/2023 9:29 [...] to ensure the accuracy of this automated deputy sheriff, some errors in deputy sheriff may have occurred. CC: Patient Care Team: Dick Miranda MD as PCP - General (Family Medicine) Donald Ochoa MD as Surgeon (Vascular Surgery) PCP:DICK MIRANDA Referring MD: Kassidy Villasenor APRN* documented in this encounterHighland [facility] Hospital08-08-2024 Instructions* Patient Instructions* Gerald Abdi MD - 10/13/2023 3:30 PM EDT PET jesus. PFT test Might need thoracic surgery referral. . F/u in 4 weeks. documented in this encounterHighland [facility] Hospital07-29-2024 History of Present illness Narrative* Olegario Moreira MD - 10/03/2023 1:00 PM EDT Images from the original note were not included. [facility] VASCULAR [address] [id number] Subjective: Patient ID: Erin Pena is a [...] understanding. Olegario Moreira MD documented in this encounterHighland District Hospital04-22-2024 History of Present illness Narrative* Olegario Moreira MD - 06/27/2023 9:45 AM EDT Images from the original note were not included. 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 Olegario Moreira MD documented in this encounterHighland District Hospital04-01-2024 Miscellaneous Notes* Telephone Encounter - Leona Bernard MA - 11/15/2023 3:41 PM EDT Patient coming in Tuesday11/16/23 for follow up treatment. Please add lab orders. Thanks. Leona Bernard MA documented in this encounterCincinnati [facility]02-14-2024 History of Present illness Narrative* Dick Miranda [...] activity and walk regularly. [facility]* Diagnosis Essential hypertension (CMS/HCC)- Primary Unspecified essential hypertension Degenerative lumbar spinal stenosis Spinal stenosis of lumbar region DDD (degenerative disc disease), cervical Degeneration of cervical intervertebral disc Benign prostatic hyperplasia with urinary hesitancy PAD (peripheral artery disease) (CMS/HCC) Unspecified peripheral vascular disease Hypothyroidism, postradioiodine therapy (CMS/HCC) documented in this encounter [facility] HealthcareEvaluation note* Diagnosis Malignant neoplasm of upper lobe of left lung (HCC)- Primary [facility] encounter [facility]* Diagnosis Lung nodule- Primary Solitary pulmonary nodule Lung nodule Solitary pulmonary nodule documented [facility] this encounter [facility]* Diagnosis Malignant neoplasm of upper lobe of left lung (HCC)- Primary Lung nodule Solitary pulmonary nodule documented [facility] this encounter [facility]* Diagnosis Pre-op exam- Primary Preoperative examination, unspecified Lung nodule Solitary pulmonary nodule Lung nodule Solitary pulmonary nodule [facility] [...] * Assessment & Plan Note - Dana Corwe APRN.CNP - 10/26/2023 3:11 PM EDT Associated [...] EDT Associated Problem(s): PAD (peripheral artery disease) ([facility]) Assessment: Known blockage - on baby [...] 1.9L/ DLCO 106 documented in this encounter [facility]* Diagnosis Pre-op evaluation- Primary Preoperative examination, [...] vascular disease, unspecified [facility] Diagnosis Pre-op evaluation- Primary Preoperative examination, [...] lung (HCC)- Primary [facility]* Diagnosis Pre-op evaluation- Primary Preoperative examination, [...] bronchus or lung [facility] Diagnosis Pre-op evaluation- Primary Preoperative examination, [...] bronchus or lung documented in this encounter [facility] note* Diagnosis Pre-op evaluation- Primary Preoperative examination, [...] malaise and fatigue documented in this encounter [facility] note* Diagnosis Pre-op evaluation- Primary Preoperative examination, [...] lung (HCC)- Primary documented in this encounter [facility] note* Diagnosis Pre-op evaluation- Primary Preoperative examination, [...] lung (HCC)- Primary documented in this encounter [facility] note* Diagnosis Pre-op evaluation- Primary Preoperative examination, [...] lung (HCC)- Primary documented in this encounter [facility] note* Diagnosis Pre-op evaluation- Primary Preoperative examination, [...] left lung (HCC) [facility] Diagnosis Pre-op evaluation- Primary Preoperative examination, [...] lung (HCC)- Primary [facility] Diagnosis Pre-op evaluation- Primary Preoperative examination, [...] (HCC)- Primary Immunotherapy [facility]* Diagnosis Essential hypertension (CMS/HCC)- Primary Unspecified [...] cervical intervertebral disc [facility] Diagnosis Pre-op evaluation- Primary Preoperative examination, [...] Anxiety state, unspecified documented in this encounter [facility]* Diagnosis Pre-op evaluation- Primary Preoperative examination, [...] lung (HCC)- Primary documented in this encounter [facility] note* Diagnosis Pre-op evaluation- Primary Preoperative examination, [...] of lung (HCC) [facility] Diagnosis Pre-op evaluation- Primary Preoperative examination, [...] lung (HCC)- Primary documented [facility] this encounter [facility]* Diagnosis Essential hypertension (CMS/HCC)- Primary Unspecified [...] or maintaining sleep documented in this encounter [facility] Healthcare[facility]* Diagnosis Essential hypertension (CMS/HCC)- [...] tendon, subsequent encounter documented in this encounter [facility] Healthcare[facility]* Diagnosis Essential hypertension (CMS/HCC)- Primary Unspecified essential hypertension Degenerative lumbar spinal stenosis Spinal stenosis of lumbar region DDD (degenerative disc disease), cervical Degeneration of cervical intervertebral disc Benign prostatic hyperplasia with urinary hesitancy PAD (peripheral artery disease) ([facility]) Unspecified peripheral vascular disease Hypothyroidism, postradioiodine therapy ([facility]) Trochanteric bursitis of right hip- Primary TIA (transient ischemic attack)- Primary Unspecified transient cerebral ischemia 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) KIKO (generalized anxiety disorder) ([facility]) Generalized anxiety disorder Unsteady Abnormality of gait 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 ([facility]/HCC)- Primary PAD (peripheral artery disease) ([facility]) Unspecified peripheral vascular disease Chemotherapy-induced neuropathy ([facility]) Primary insomnia Persistent disorder of initiating or maintaining sleep Essential hypertension ([facility])- Primary Unspecified essential hypertension Chemotherapy-induced neuropathy ([facility]) Chronic obstructive pulmonary disease, unspecified COPD type ([facility]) Encounter for long-term (current) use of medications Encounter for long-term (current) use of other medications PAD (peripheral artery disease) ([facility]) Unspecified peripheral vascular disease DDD (degenerative disc disease), cervical Degeneration of cervical intervertebral disc Hypothyroidism, postradioiodine therapy ([facility]) [facility] Diagnosis Pre-op evaluation- Primary Preoperative examination, [...] malaise and fatigue documented [facility] this encounter [facility]* Diagnosis Pre-op evaluation- Primary Preoperative examination, [...] Preoperative examination, unspecified [facility]* Diagnosis DDD (degenerative disc disease), cervical Degeneration of cervical intervertebral disc [facility]* Diagnosis Pre-op evaluation- Primary Preoperative examination, [...] Preoperative examination, unspecified [facility]* Diagnosis Essential hypertension (CMS/HCC)- Primary Unspecified [...] of cervical intervertebral disc Hypothyroidism, postradioiodine therapy ([facility]) DDD (degenerative disc disease), cervical Degeneration of cervical intervertebral disc documented in this encounter [facility]* Diagnosis DDD (degenerative disc disease), cervical- Primary Degeneration of cervical intervertebral disc Primary insomnia Persistent disorder of initiating or maintaining sleep documented in this encounter [facility]* Diagnosis Pre-op evaluation- Primary Preoperative examination, unspecified Chronic obstructive pulmonary disease, unspecified COPD type ([facility]) Cigarette smoker Tobacco use disorder Hypothyroidism, postradioiodine therapy Other postablative hypothyroidism TIA (transient ischemic attack) Unspecified transient cerebral ischemia KKIO (generalized anxiety disorder) Generalized anxiety disorder Essential hypertension Unspecified essential hypertension Mixed hyperlipidemia PAD (peripheral artery disease) ([facility]) Peripheral vascular disease, unspecified Chronic pain syndrome Prediabetes Other abnormal glucose History of craniotomy Other postprocedural status Malignant neoplasm of lung, unspecified laterality, unspecified part of lung ([facility])- Primary Abnormal blood chemistry Other abnormal blood chemistry [facility] encounter [facility]* Diagnosis Occlusive disease, arterial- Primary Embolism and thrombosis of unspecified artery Right internal carotid occlusion Malignant neoplasm of upper lobe of left lung ([facility]) [facility] Diagnosis Essential hypertension- Primary Unspecified essential hypertension Malignant neoplasm of upper lobe of left lung ([facility]) Mixed hyperlipidemia [facility]* Diagnosis Essential hypertension Unspecified essential hypertension Bilateral carotid artery stenosis Occlusion and stenosis of carotid artery without mention of cerebral infarction Occlusive disease, arterial Embolism and thrombosis of unspecified artery [facility] Diagnosis Essential hypertension ([facility])- Primary Unspecified essential hypertension Degenerative lumbar spinal stenosis Spinal stenosis of lumbar region DDD (degenerative disc disease), cervical Degeneration of cervical intervertebral disc Benign prostatic hyperplasia with urinary hesitancy PAD (peripheral artery disease) ([facility]) Unspecified peripheral vascular disease Hypothyroidism, postradioiodine therapy ([facility]) Trochanteric bursitis of right hip- Primary TIA [...] region and thigh [facility] Diagnosis Pre-op evaluation- Primary Preoperative examination, [...] condition classified elsewhere documented [facility] encounter [facility] Diagnosis Pre-op evaluation- Primary Preoperative examination, [...] left lung (HCC) documented [facility] this encounter [facility]* Diagnosis Pre-op evaluation- Primary Preoperative examination, [...] malaise and fatigue documented [facility] this encounter [facility]* Diagnosis Pre-op evaluation- Primary Preoperative examination, [...] malaise and fatigue documented [facility] this [facility]* Diagnosis Right internal carotid occlusion- Primary Occlusive disease, arterial Embolism and thrombosis of unspecified artery [facility]* Diagnosis Essential hypertension Unspecified essential hypertension Bilateral carotid artery stenosis Occlusion and stenosis of carotid artery without mention of cerebral infarction Occlusive disease, arterial Embolism and thrombosis of unspecified artery [facility]* Diagnosis Essential hypertension (CMS/HCC)- [...] 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 ([facility]) KIKO (generalized anxiety disorder) ([facility]) Generalized anxiety disorder Unsteady Abnormality of gait 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 ([facility]/HCC)- Primary PAD (peripheral artery disease) ([facility]) Unspecified peripheral vascular disease Chemotherapy-induced neuropathy ([facility]) Primary insomnia Persistent disorder of initiating or maintaining sleep Essential hypertension ([facility])- Primary Unspecified essential hypertension Chemotherapy-induced neuropathy ([facility]) Chronic obstructive pulmonary disease, unspecified COPD type ([facility]) Encounter for long-term (current) use of medications Encounter for long-term (current) use of other medications PAD (peripheral artery disease) ([facility]) Unspecified peripheral vascular disease DDD (degenerative disc disease), cervical Degeneration of cervical intervertebral disc Hypothyroidism, postradioiodine therapy ([facility]) Medicare annual wellness visit, subsequent- Primary Seborrheic dermatitis Unspecified seborrheic dermatitis 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 ([facility]) Chronic obstructive pulmonary disease, unspecified COPD type ([facility]) documented in this encounter [facility]* Diagnosis Bilateral carotid artery stenosis- Primary Occlusion and stenosis of carotid artery without mention of cerebral infarction PAD (peripheral artery disease) ([facility]) Unspecified peripheral vascular disease [facility] Diagnosis Occlusive disease, arterial- Primary Embolism and thrombosis of unspecified artery Right internal carotid occlusion Bilateral carotid artery stenosis Occlusion and stenosis of carotid artery without mention of cerebral infarction Atheroembolism of bilateral lower extremities ([facility]) [facility] Diagnosis Squamous carcinoma of lung, left ([facility])- Primary Lung mass Swelling, mass, or lump in chest documented [facility]* Diagnosis Chronic obstructive pulmonary disease, unspecified COPD type ([facility])- Primary Lung mass Swelling, mass, or lump in chest documented [facility]* Diagnosis Essential hypertension- Primary Unspecified essential hypertension Bilateral carotid artery stenosis Occlusion and stenosis of carotid artery without mention of cerebral infarction Occlusive disease, arterial Embolism and thrombosis of unspecified artery [facility] Diagnosis Essential hypertension ([facility])- Primary Unspecified essential hypertension Degenerative lumbar spinal stenosis Spinal stenosis of lumbar region DDD (degenerative disc disease), cervical Degeneration of cervical intervertebral disc Benign prostatic hyperplasia with urinary hesitancy PAD (peripheral artery disease) ([facility]) Unspecified peripheral vascular disease Hypothyroidism, postradioiodine therapy ([facility]) Trochanteric bursitis of right hip- Primary TIA (transient ischemic attack)- Primary Unspecified transient cerebral ischemia 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 ([facility]) KIKO (generalized anxiety disorder) ([facility]) Generalized anxiety disorder Unsteady Abnormality of gait 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 ([facility])- Primary PAD (peripheral artery disease) ([facility]) Unspecified peripheral vascular disease Chemotherapy-induced neuropathy ([facility]) Primary insomnia Persistent disorder of initiating or maintaining sleep Essential hypertension ([facility])- Primary Unspecified essential hypertension Chemotherapy-induced neuropathy ([facility]) Chronic obstructive pulmonary disease, unspecified COPD type ([facility]) Encounter for long-term (current) use of medications Encounter for long-term (current) use of other medications PAD (peripheral artery disease) ([facility]) Unspecified peripheral vascular disease DDD (degenerative disc disease), cervical Degeneration of cervical intervertebral disc Hypothyroidism, postradioiodine therapy ([facility]) Medicare annual wellness visit, subsequent- Primary Seborrheic dermatitis Unspecified seborrheic dermatitis 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 Diagnosis Pre-op evaluation- Primary Preoperative examination, unspecified Chronic obstructive pulmonary disease, unspecified COPD type (HCC) Cigarette smoker Tobacco use disorder Hypothyroidism, postradioiodine therapy Other postablative hypothyroidism TIA (transient ischemic attack) Unspecified transient cerebral ischemia KIKO (generalized anxiety disorder) Generalized anxiety disorder Essential hypertension Unspecified essential hypertension Mixed hyperlipidemia PAD (peripheral artery disease) ([facility]) Peripheral vascular disease, unspecified Chronic pain syndrome Prediabetes Other abnormal glucose History of craniotomy Other postprocedural status Muscle soreness- Primary Mylagia and myositis, unspecified [facility] Pre-op evaluation- Primary Preoperative examination, [...] and myositis, unspecified [facility] Diagnosis Pre-op evaluation- Primary Preoperative examination, [...] lung (HCC)- Primary [facility] Diagnosis Pre-op evaluation- Primary Preoperative examination, [...] lung (HCC)- Primary [facility] Diagnosis Pre-op evaluation- Primary Preoperative examination, [...] (ADHD), combined type [facility] Diagnosis Pre-op evaluation- Primary Preoperative examination, [...] lung (HCC)- Primary [facility] Diagnosis Pre-op evaluation- Primary Preoperative examination, [...] lung (HCC)- Primary documented in this encounter [facility] note* Diagnosis Essential hypertension (CMS/HCC)- Primary Unspecified [...] of other medications PAD (peripheral artery disease) ([facility]/HCC) Unspecified peripheral vascular disease DDD (degenerative disc disease), cervical Degeneration of cervical intervertebral disc Hypothyroidism, postradioiodine therapy ([facility]) Medicare annual wellness visit, subsequent- Primary Seborrheic dermatitis Unspecified seborrheic dermatitis 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 Diagnosis Pre-op evaluation- Primary Preoperative examination, [...] left lung (HCC) [facility] Diagnosis Pre-op evaluation- Primary Preoperative examination, [...] specification of site [facility] Diagnosis Pre-op evaluation- Primary Preoperative examination, [...] lung (HCC)- Primary documented in this encounter [facility] note* Diagnosis Pre-op evaluation- Primary Preoperative examination, unspecified Chronic obstructive pulmonary disease, unspecified COPD type ([facility]) Cigarette smoker Tobacco use disorder Hypothyroidism, [...] lung (HCC)- Primary documented in this encounter [facility] note* Diagnosis Essential hypertension ([facility]/HCC)- Primary Unspecified essential hypertension Degenerative lumbar spinal stenosis Spinal stenosis of lumbar region DDD (degenerative disc disease), cervical Degeneration of cervical intervertebral disc Benign prostatic hyperplasia with urinary hesitancy PAD (peripheral artery disease) ([facility]) Unspecified peripheral vascular disease Hypothyroidism, postradioiodine therapy ([facility]) Trochanteric bursitis of right hip- Primary TIA (transient ischemic attack)- Primary Unspecified transient cerebral ischemia 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 ([facility]/HCC) KIKO (generalized anxiety disorder) ([facility]) Generalized anxiety disorder Unsteady Abnormality of gait 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 ([facility]/HCC)- Primary PAD (peripheral artery disease) ([facility]) Unspecified peripheral vascular disease Chemotherapy-induced neuropathy ([facility]) Primary insomnia Persistent disorder of initiating or maintaining sleep Essential hypertension ([facility]/HCC)- Primary Unspecified essential hypertension Chemotherapy-induced neuropathy ([facility]/HCC) Chronic obstructive pulmonary disease, unspecified COPD type ([facility]) Encounter for long-term (current) use of medications Encounter for long-term (current) use of other medications PAD (peripheral artery disease) ([facility]) Unspecified peripheral vascular disease DDD (degenerative disc disease), cervical Degeneration of cervical intervertebral disc Hypothyroidism, postradioiodine therapy ([facility]) Medicare annual wellness visit, subsequent- Primary Seborrheic dermatitis Unspecified seborrheic dermatitis 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 Diagnosis Pre-op evaluation- Primary Preoperative examination, [...] lung (HCC)- Primary [facility] Diagnosis Pre-op evaluation- Primary Preoperative examination, [...] (ADHD), combined type [facility] Diagnosis Essential hypertension (CMS/HCC)- Primary Unspecified [...] Chemotherapy-induced neuropathy (CMS/HCC) [facility] Diagnosis Pre-op evaluation- Primary Preoperative examination, [...] lung (HCC)- Primary [facility] Diagnosis Pre-op evaluation- Primary Preoperative examination, [...] Syncope and collapse [facility] Diagnosis Pre-op evaluation- Primary Preoperative examination, [...] Syncope and collapse [facility] Diagnosis Pre-op evaluation- Primary Preoperative examination, [...] unspecified headache type [facility] Diagnosis Pre-op evaluation- Primary Preoperative examination, [...] disorders of thyroid [facility] Diagnosis Internal carotid artery stenosis, bilateral Occlusive disease, arterial Embolism and thrombosis of unspecified artery Atheroembolism of bilateral lower extremities (CMS-HCC) [facility] Diagnosis Pre-op evaluation- Primary [...] unspecified headache type [facility] Diagnosis Essential hypertension ([facility]/HCC)- Primary Unspecified essential hypertension Degenerative lumbar spinal stenosis Spinal stenosis of lumbar region DDD (degenerative disc disease), cervical Degeneration of cervical intervertebral disc Benign prostatic hyperplasia with urinary hesitancy PAD (peripheral artery disease) ([facility]/HCC) Unspecified peripheral vascular disease Hypothyroidism, postradioiodine therapy ([facility]/HCC) Trochanteric bursitis of right hip- Primary TIA (transient ischemic attack)- Primary Unspecified transient cerebral ischemia 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 ([facility]/HCC) KIKO (generalized anxiety disorder) ([facility]) Generalized anxiety disorder Unsteady Abnormality of gait 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 ([facility]/HCC)- Primary PAD (peripheral artery disease) ([facility]) Unspecified peripheral vascular disease Chemotherapy-induced neuropathy ([facility]) Primary insomnia Persistent disorder of initiating or maintaining sleep Essential hypertension ([facility]/HCC)- Primary Unspecified essential hypertension Chemotherapy-induced neuropathy ([facility]/HCC) Chronic obstructive pulmonary disease, unspecified COPD type ([facility]) Encounter for long-term (current) use of medications Encounter for long-term (current) use of other medications PAD (peripheral artery disease) ([facility]) Unspecified peripheral vascular disease DDD (degenerative disc disease), cervical Degeneration of cervical intervertebral disc Hypothyroidism, postradioiodine therapy ([facility]/HCC) Medicare annual wellness visit, subsequent- Primary Seborrheic dermatitis Unspecified seborrheic dermatitis 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 Diagnosis Essential hypertension- Primary Unspecified essential [...] right hip- Primary documented in this encounter [facility]* Diagnosis Essential hypertension- Primary [...] cervical intervertebral disc documented in this encounter [facility]* Diagnosis Pre-op evaluation- Primary Preoperative [...] malaise and fatigue [facility] Diagnosis Essential hypertension- Primary Unspecified essential [...] right hip- Primary [facility] Diagnosis Essential hypertension- Primary Unspecified essential [...] right hip- Primary documented in this encounter [facility]* Diagnosis Essential hypertension- Primary Unspecified essential hypertension [facility] Diagnosis Essential hypertension- Primary [...] right hip- Primary documented in this encounter [facility]* Diagnosis Essential hypertension- Primary [...] right hip- Primary documented in this encounter [facility]* Diagnosis Essential hypertension Unspecified essential hypertension Bilateral carotid artery stenosis Occlusion and stenosis of carotid artery without mention of cerebral infarction Occlusive disease, arterial Embolism and thrombosis of unspecified artery [facility] Diagnosis Essential hypertension- Primary [...] of right hip documented in this encounter [facility]* Diagnosis Essential hypertension- Primary [...] right hip- Primary documented in this encounter [facility]* Diagnosis Essential hypertension- Primary [...] right hip- Primary documented in this encounter [facility]* Diagnosis Pre-op evaluation- Primary Preoperative [...] Shortness of breath documented in this encounter [facility] note* Diagnosis Pre-op evaluation- Primary Preoperative examination, [...] Shortness of breath documented in this encounter [facility] note* Diagnosis Pre-op evaluation- Primary Preoperative examination, [...] treatment for malignant neoplasm Unspecified follow-up examination manager long term care (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 documented in this encounter [facility] note* Diagnosis Pre-op evaluation- Primary Preoperative examination, [...] abnormal blood chemistry [facility] Author Clarence Stevens [facility] HospitalNote Date/TimeAugust 2024 8:51pm[place] [address] Hospitalist H&P Signed Patient: Erin Pena MR#: [id number] : 1955 Acct:[id number] Age/Sex: 68 / M Adm Date: 5 Loc: Room: [address] [place] [address] Type: ADM IN Attending Dr: Clarence Stevens [...] mg will be continued for diabetes mellitus [facility] Medical History Lung cancer History of gastric [...] PO DAILY hypothyroidism 11/02/19 [History Confirmed 10/27/24] [id number] 300 mcg-K 60 mcg-lycop 600 mcg-lutein 300 [...] % (Auto) 18.3 % (.) 10/27/24 14:17 Grainger % (Auto) 6.8 % (.) 10/27/24 14:17 Eos % (Auto) 11.7 % (.) 10/27/24 14:17 Baso % (Auto) 0.5 % (.) 10/27/24 14:17 Nucleat RBC Rel Count 0.2 /100 WBC (0-0.5) 10/27/24 14:17 Neut # (Auto) 6.1 x10E3/uL (1.8-7.7) 10/27/24 14:17 Lymph # (Auto) 1.8 x10E3/uL (1.00-4.8) 10/27/24 14:17 Grainger # (Auto) 0.7 x10E3/uL (0.0-0.8) 10/27/24 14:17 [...] <Electronically signed by Clarence Stevens DO> 10/27/242050 [facility] Work Phone: InstructionsNot on filedocumented in [...] sent through Care Everywhere. * Endobronchial Ultrasound (Ecuadorean) documented in this encounter[facility] System[facility]ructionsNot on file documented in this encounterProMedica Health SystemInstructionsNot on file documented in this encounterProMedica Health SystemInstructionsNot on file documented in this encounterProMedica Health SystemInstructionsNot on file documented in this encounterProMedica Health SystemInstructionsNot on file documented in this encounterProMedica Health SystemReason for referral (narrative)* Outpatient Procedure (Routine) - New RequestSpecialtyDiagnoses / ProceduresReferred By ContactReferred To ContactADENA [facility] SYSTEM[facility] Diagnoses Lung nodule Procedures ECG COMPLETE ECG ROUTINE ECG W/LEAST 12 LDS W/I&R Hugh Craig MD [address] [place] [address] [facility] [address] [place] [address] Referral IDStatusReasonStart DateExpiration DateVisits RequestedVisits [id number] Request Auto-Generated Referral [facility] for referral (narrative)* Outpatient Procedure (Routine) - New RequestSpecialtyDiagnoses / ProceduresReferred By ContactReferred To [facility] Diagnoses Preoperative testing Procedures SPIROMETRY BASELINE ONLY SPMTRY W/VC EXPIRATORY PAWAN W/[place] [address] [place] [address] Respiratory [place] [phone] Referral IDStatusReasonStart DateExpiration DateVisits RequestedVisits [id number] Request Auto-Generated Referral * Outpatient Procedure (Routine) - New RequestSpecialtyDiagnoses / Procedures Referred By ContactReferred To [facility] Diagnoses Preoperative testing Procedures LUNG DIFFUSION CAPACITY (DLCO) [place] [address] [place] [address] [place] [id number] Ref[facility]Status[facility] DateExpiration DateVisits RequestedVisits [id number] Request Auto-Generated Referral * Outpatient Procedure (Routine) - New RequestSpecialtyDiagnoses / Procedures Referred By ContactReferred To [facility] Diagnoses Preoperative cardiovascular examination Procedures ECHO ECHO TTHRC R-T 2D W/WOM-MODE COMPL SPEC&[place] [address] [place] [address] Heart [facility] Vascular [address] [address] Referral IDStatusReasonStart DateExpiration DateVisits RequestedVisits [id number] Request Auto-Generated Referral * Outpatient Procedure (Routine) - New RequestSpecialtyDiagnoses / Procedures Referred By ContactReferred To ContactRESPIRATORY INSTITUTE Diagnoses Preoperative testing Procedures SIX MINUTE WALK CARDIOPULMONARY [place] [address] [place] [address] Respiratory [address] [place] [address] Referral IDStatusReasonStart DateExpiration DateVisits RequestedVisits [id number] Request Auto-Generated Referral * Diagnostic Procedure Only (Routine) - New RequestSpecialtyDiagnoses / ProceduresReferred By ContactReferred To ContactMOLECULAR & FUNCTIONAL IMAGING Diagnoses Preoperative testing Encounter for preoperative vascular examination Procedures NM LUNG QUANT PERFUSION QUANT DIFFERENTIAL PULM PERFUSION W/[place] [address] [place] [address] Molecular & Functional Imaging [address] [place] [address] Referral IDStatusReasonStart DateExpiration DateVisits RequestedVisits [id number] Request Auto-Generated Referral * Diagnostic Procedure Only (Routine) - New RequestSpecialtyDiagnoses / ProceduresReferred By ContactReferred To ContactMOLECULAR & FUNCTIONAL IMAGING Diagnoses Preoperative cardiovascular examination Procedures NM CARDIAC PERF STRESS/PHARM MYOCARDIAL SPECT [place] [address] [place] [address] Molecular & Functional Imaging [address] [place] [address] Referral IDStatusReasonStart DateExpiration DateVisits RequestedVisits [id number] Request Auto-Generated Referral / * Consult, Test, Treat (Routine) - AuthorizedSpecialtyDiagnoses / Procedures Referred By ContactReferred To ContactRadiation Oncology Diagnoses Malignant neoplasm of upper lobe of left lung (HCC) Procedures RAD/ONC CONSULT OFFICE/OUTPATIENT [facility] [address] [place] [address] [place] [id number] Josh Pollard MD [address] [place] [address] [place] [address] Referral IDStatusReasonStvincent DateExpiration DateVisits RequestedVisits [id number] PCP Requested Referral [facility] for referral (narrative)* Diagnostic Procedure Only (Routine) - AuthorizedSpecialtyDiagnoses / ProceduresReferred By Contact Referred To ContactMOLECULAR & FUNCTIONAL IMAGING Diagnoses Malignant neoplasm of unspecified part of unspecified bronchus or lung (HCC) Procedures NM PET/CT SKULL-THIGH SUBSEQUENT PET IMAGING CT ATTENUATION SKULL BASE MID-THIGH Jack Hoang MD [address] [place] [address] Molecular & Functional Imaging [address] [place] [address] Referral IDStatusReasonStvincent DateExpiration DateVisits RequestedVisits [id number] Auto-Generated Referral / [facility] for referral (narrative)* Diagnostic Procedure Only (Routine) - ClosedSpecialtyDiagnoses / ProceduresReferred By ContactReferred To ContactMOLECULAR & FUNCTIONAL IMAGING Diagnoses Malignant neoplasm of unspecified part of unspecified bronchus or lung (HCC) Procedures NM PET/CT SKULL-THIGH SUBSEQUENT PET IMAGING CT ATTENUATION SKULL BASE MID-THIGH Jack Hoang MD [address] [place] [address] [place] [address] Molecular & Functional Imaging [address] [place] [address] Referral IDStatusReasonStart DateExpiration DateVisits RequestedVisits [id number] Auto-Generated Referral / [facility] for referral (narrative)No reason for referral information availableSouthview [facility] Work Phone: [phone] Narrative* Outpatient Procedure (Routine) - ClosedSpecialtyDiagnoses / ProceduresReferred By ContactReferred To ContactADENA HEALTH SYSTEMRT [facility] Diagnoses Lung nodule Procedures ECG COMPLETE ECG ROUTINE ECG W/LEAST 12 LDS W/I&R Hugh Craig MD [address] [place] [address] Heart [facility] Vascular [facility] [place] [address] Referral IDStatusReSt. Vincent's Hospital DateExpiration DateVisits RequestedVisits [id number] Auto-Generated Referral / [facility] for visit Narrative* [place] Prior Authorization (Routine) - AuthorizedSpecialtyDiagnoses / ProceduresReferred By ContactReferred To Contact Diagnoses Malignant neoplasm of upper lobe of left lung (HCC) Procedures INJECTION, NIVOLUMAB Lo Hancock MD [address] [place] [address] [place] [address] Phone: tel: fax: Hematology/Oncology [address] [place] [address] [place] [address] Phone: tel: fax: Referral IDStatusReasonStart DateExpiration DateVisits RequestedVisits [id number]/25/ [facility] for visit Narrative* Rehabilitation - Outpatient (Routine) - AuthorizedSpecialtyDiagnoses / ProceduresReferred By Contact Referred To ContactPhysical Therapy Diagnoses Trochanteric bursitis, right hip Procedures DE PHYSICAL THERAPY EVALUATION LOW COMPLEX 20 MINS DE OFFICE/OUTPATIENT NEW HIGH MDM 60 MINUTES Sregio Boogie PA fax: [facility] [address] [facility] [address] [place] [address] Phone: tel: fax: Referral IDStatusReasonStart DateExpiration DateVisits RequestedVisits [id number]/8/20259/5/202566 [facility] for visit Narrative* Rehabilitation - Outpatient (Routine) - ClosedSpecialtyDiagnoses / ProceduresReferred By ContactReferred To Contact Physical Therapy Diagnoses Trochanteric bursitis, right hip Procedures DE PHYSICAL THERAPY EVALUATION LOW COMPLEX 20 MINS DE OFFICE/OUTPATIENT NEW HIGH MDM 60 MINUTES Sergio Boogie PA fax: [facility] [address] [address] Phone: tel: fax: Referral IDStatusReasonStart DateExpiration DateVisits RequestedVisits [id number]/8/20259/5/202566 [facility] for visit Narrative* Rehabilitation - Outpatient (Routine) - AuthorizedSpecialtyDiagnoses / ProceduresReferred By ContactReferred To ContactPhysical Therapy Diagnoses Trochanteric bursitis, right hip Procedures DE PHYSICAL THERAPY EVALUATION LOW COMPLEX 20 MINS DE OFFICE/OUTPATIENT NEW HIGH MDM 60 MINUTES Sergio Boogie PA fax: [facility] [address] [address] Phone: tel: fax: Referral IDStatusReasonStart DateExpiration DateVisits RequestedVisits [id number] Consult and Treat [facility] Summary Purpose Family History Relationship Condition Age at Onset Recorded Date/T ruthann father Heart disease Unknown Not SpecifiedHeart diseaseUnknown Relationship Condition Age at Onset Recorded Date/T ruthann father Heart disease Unknown motherHeart diseaseUnknownfamily memberCoronary artery diseaseUnknown Advance Directives Advance Directive Response Recorded Date/ Time Advance Directives Yes October 31, 2019 3:42pm TypeDate RecordedPatient RepresentativeExplanationAdvance Directives and Living Will living will-healthcare POATypeDate RecordedPatient RepresentativeExplanationAdvance Directive(s)11/16/2023 3:40 PMAdvance Directives- Health Carer Power of Religious Educator and Living WillTypeDate Recorded Patient RepresentativeExplanationAdvance Directive(s)11/16/2023 3:40 PMAdvance Directives- Health Carer Power of Religious Educator and Living WillDate ActivatedDate InactivatedComments09/27/2023 6:42 PM09/29/2023 [...] 48pm Squamous cell lung cancer October 27, 6:48pm Chief Complaint Admit Date Amb Documentation August 31, 2024 1:27 pm fluids on lungs October 27, 2024 6: 48pm Established Patient November 21, 2024 1:30pm Reason for Visit Admit Date Pleural effusion October 27, 2024 6: 48pm Squamous cell lung cancer October 27, 025 6:48pm Atypical chest pain October 27, [...] CONSULT TO CARDIOTHORACIC SURGERY Lo Hancock MD [address] [place] [address] [place] [address] Referral IDStatusReasonStart DateExpiration DateVisits RequestedVisits [id number] Not Required PCP Requested Referral /[id number] / ProceduresReferred By ContactReferred To ContactCardiology Diagnoses Chest pain, unspecified type Procedures CONSULT TO CARDIOLOGY OFFICE/OUTPATIENT [facility] 60 MINUTES Nancy Elizondo, INSPECTOR HEATING AND REFRIGERATION.MAPPING SPECIALIST [address] [place] [address] Referral IDStatusReasonStart DateExpiration DateVisits RequestedVisits [id number] PCP Requested Referral /[id number] / ProceduresReferred By ContactReferred To ContactPulmonary and Critical Care Medicine Diagnoses Chronic obstructive pulmonary disease, unspecified COPD type (HCC) Procedures CONSULT TO PULM/CRITICAL CARE OFFICE/OUTPATIENT [facility] 60 MINUTES Nancy Elizondo, INSPECTOR HEATING AND REFRIGERATION.MAPPING SPECIALIST [address] [place] [address] Referral IDStatusReasonStart DateExpiration DateVisits RequestedVisits [id number] PCP Requested Referral /[id number] / ProceduresReferred By ContactReferred To ContactNeurology Diagnoses TIA (transient ischemic attack) Procedures CONSULT TO NEUROLOGY OFFICE/OUTPATIENT [facility] 60 MINUTES Nancy Elizondo, INSPECTOR HEATING AND REFRIGERATION.MAPPING SPECIALIST [address]é[place] [place] [address] Referral IDStatusReasonStvincent DateExpiration DateVisits RequestedVisits [id number] PCP Requested Referral /[id number] / ProceduresReferred By ContactReferred To Contact Diagnoses 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 DateExpiration DateVisits RequestedVisits [id number] PCP Requested Referral /[id number] / ProceduresReferred By ContactReferred To ContactCT IMAGING Diagnoses Malignant neoplasm of lung, unspecified laterality, unspecified part of lung (HCC) Malignant neoplasm of upper lobe of left lung (HCC) Procedures CT CHEST W IVCON DIAGNOSTIC COMPUTED TOMOGRAPHY THORAX W/CONTRAST Lo Hancock MD [address] [place] [address] [place] [address] Ct [facility] [place] [address] [facility] DateExpiration DateVisits RequestedVisits [id number] Auto-Generated Referral /[id number] / ProceduresReferred By ContactReferred To ContactCT IMAGING Diagnoses Malignant neoplasm of lung, unspecified laterality, unspecified part of lung (HCC) Malignant neoplasm of upper lobe of left lung (HCC) Procedures CT ABD/PEL W IVCON CT ABD & PELVIS W/CONTRAST Lo Hancock MD [address] [place] [address] [place] [address] [place] [address] Referral IDStatusReasonStart DateExpiration DateVisits RequestedVisits [id number] Auto-Generated Referral eferral IDStatusReasonStart DateExpiration DateVisits RequestedVisits [id number] Auto-Generated Referral eferral IDStatusReasonStart DateExpiration DateVisits RequestedVisits [id number] Auto-Generated Referral [id number] / ProceduresReferred By ContactReferred To ContactRadiology Diagnoses Occlusive disease, arterial Procedures CT angiogram abdominal aorta with runoff Olegario Moreira MD [address] [place] [address] Referral IDStatusReasonStart DateExpiration DateVisits RequestedVisits [id number] Review/[id number] / ProceduresReferred By ContactReferred To Contact Diagnoses Occlusive disease, arterial 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) Procedures Vas art doppler lwr bilat mult lev/PVR Olegario Moreira MD [facility] [address] [place] [address] Referral IDStatusReasonStart DateExpiration DateVisits RequestedVisits [id number] Review/ Additional Source Comments (unrecognized sect ion and content) No Status Records FoundNo Status Records FoundNo Status Records FoundNo Status Records FoundNo Status Records FoundNo Status Records FoundNo Status Records FoundNo Status Records FoundNo Status Records FoundNo Status Records FoundNo Status Records FoundNo Status Records FoundNo Status Records FoundNo Status Records Found INFORMATION SOURCE (unrecogn ized section and content) DATE CREATED AUTHOR 06/21/2018 [facility] DATE CREATED AUTHOR AUTHOR'S ORGANIZ ATGRZEGORZ 06/27/2018 [facility] DATE CREATED AUTHOR AUTHOR'S ORGANIZ ATION 03/20/2019 [facility] DATE CREATED AUTHOR AUTHOR'S ORGANIZ ATION 01/29/2020 [facility] DATE CREATED AUTHOR AUTHOR'S ORGANIZ ATION 03/26/2020 [facility] DATE CREATED AUTHOR AUTHOR'S ORGANIZ ATION 10/11/2023 [facility] DATE CREATED AUTHOR AUTHOR'S ORGANIZ ATION 11/02/2023 [facility] DATE CREATED AUTHOR AUTHOR'S ORGANIZ ATION 06/09/2024 [facility] DATE CREATED AUTHOR AUTHOR'S ORGANIZ ATION 08/06/2024 [facility] DATE CREATED AUTHOR AUTHOR'S ORGANIZ ATION 09/28/2024 [facility] DATE CREATED AUTHOR AUTHOR'S ORGANIZ ATION 11/15/2024 [facility] DATE CREATED AUTHOR AUTHOR'S ORGANIZ ATION 11/25/2024 [facility] DATE CREATED AUTHOR AUTHOR'S ORGANIZ ATION 12/18/2024 [facility] DATE CREATED AUTHOR AUTHOR'S ORGANIZ ATION 01/04/2025 [facility] Reason for Visit (unrecogniz ed section [...] FOSAPREPITANT INJECTION PACLITAXEL INJECTION Lo Hancock MD [address] [place] [address] [place] [address] [facility] [employer] [place] [address] [place] [address] Referral IDStatusReasonStart DateExpiration DateVisits RequestedVisits [id number]/21/202410/[id number] CancerReason CommentsCare PojtzshaozykE1N0 Post Treatment CallReasonCommentsCare Coordination Treatment Side EffectsReasonCommentsCare CoordinationDental QuestionReason CommentsLung CancerOTVReasonOnset DateCommentsMed Avcktp264ReasonComments AnxietySpecialtyDiagnoses / ProceduresReferred By ContactReferred To Contact Diagnoses 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, bronchus, and lung (HCC) Malignant neoplasm of upper lobe of left lung (HCC) Procedures CONSULT TO PALLIATIVE CARE OFFICE/OUTPATIENT [facility] 60 MINUTES Lo Hancock MD [address] [place] [address] [place] [address] Referral IDStatusReasonStart DateExpiration DateVisits RequestedVisits [id number] PCP Requested Referral /[id number] CoordinationNumbness/Tingling; Lab RequestReferral IDStatusReasonStart DateExpiration DateVisits RequestedVisits [id number]/21/20242/[id number] CancerOTV ReasonCommentsPrescription RefillsReasonCommentsCare CoordinationMedication & Vaccine QuestionReasonCommentsLeg [...] ABD & PELVIS W/CONTRAST Lo Hancock MD [address] [place] [address] [place] [address] [place] [address] Referral IDStatusReasonStart DateExpiration DateVisits RequestedVisits [id number] Auto-Generated Referral [id number] CoordinationCT ResultsReasonComments Established PatientDiscuss CT ResultsReasonOnset DateCommentsMed Refill 11/18/2023easonOnset DateCommentsMed Etsttt6202/20/2024easonCommentsCare CoordinationFatigue; Body AchesReasonOnset DateCommentsMed Doddym4810/27/2023 ReasonCommentsFollow-upExtremity PainPt c/o pain in bilateral calves with walking-states he can walk more than 11 feet without having tostop and rest ReasonCommentsNew PatientPre-op ExamNP REFERRAL PRE OP CLEARANCE DR SAVANAH OREILLY [facility] FAX [phone] TBD, MALIGNANTNEOPLASM OF UPPER LOBE OF LEFT LUNG, [facility] IN SEPTEMBER OF 2023, NO DEVICES, SCHED W/PT STRESS, ECHO FRESpecialtyDiagnoses / ProceduresReferred By ContactReferred To Contact Cardiology Diagnoses Malignant neoplasm of upper lobe of left lung (CMS-HCC) Olegario Moreira MD [address] [facility] [address] [place] [address] Phone: tel:[phone] fax: [facility] [address] [address] Phone: tel: fax: Referral IDStatusReasonStart DateExpiration DateVisits RequestedVisits [id number] Review Specialty Services Required [id number] RefillReasonCommentsFollow-upReason CommentsCare CoordinationTreatment DecisionReasonCommentsPalliative CareReason Onset DateCommentsMed Ufcigu1404/02/2024SpecialtyDiagnoses / ProceduresReferred By ContactReferred To ContactRadiation Oncology Diagnoses Malignant neoplasm of upper lobe of left lung (HCC) Procedures RAD/ONC CONSULT OFFICE/OUTPATIENT [facility] [place] [address] [place] [address] Josh Pollard MD [address] [place] [address] Referral IDStatusReasonStart DateExpiration DateVisits RequestedVisits [id number] PCP Requested Referral [id number] NMSpecialtyDiagnoses / Procedures Referred By ContactReferred To ContactMOLECULAR & FUNCTIONAL IMAGING Diagnoses Malignant neoplasm of unspecified part of unspecified bronchus or lung (HCC) Procedures NM PET/CT SKULL-THIGH SUBSEQUENT PET IMAGING CT ATTENUATION SKULL BASE MID-THIGH Jack Hoang MD [address] [place] [address] Molecular & Functional Imaging [address] [place] [id number] Referral IDStatusReasonStvincent DateExpiration DateVisits RequestedVisits [id number] Auto-Generated Referral /[id number] CancerFollow upReasonCommentsPatient EducationReasonCommentsBCASperipheral artery diseaseperipheral artery disease ReasonCommentsMedicare Annual Wellness Visit SubsequentwellnessShoulder PainHip PainReasonCommentsFollow-upTesting done- art doppler completed but pt states did not check carotids which pt says they typically due ReasonCommentsFollow-upCTA 09/25; had CVA 09/26, found mass on L lung, still having dizziness and headaches ReasonCommentsNew PatientSpecialtyDiagnoses / ProceduresReferred By Contact Referred To ContactOncology Diagnoses Lung mass Kassidy Villasenor, INSPECTOR HEATING AND REFRIGERATION-MAPPING SPECIALIST [address] [place] [address] Gerald Abdi MD [address] [place] [address] Referral IDStatusReasonStart DateExpiration DateVisits RequestedVisits [id number] Review Specialty Services Required [id number] PatientCXR: 4PFT: 10/17/2023 SpecialtyDiagnoses / ProceduresReferred By ContactReferred To ContactPulmonary Medicine Diagnoses Lung mass Kassidy Villasenor, INSPECTOR HEATING AND REFRIGERATION-MAPPING SPECIALIST [address] [place] [address] Estefany Lang, [address] [place] [address] Referral IDStatusReasonStart DateExpiration DateVisits RequestedVisits [id number] [id number] Change RequestReasonCommentsPainReasonCommentsPatient UpdateAppointmentReasonComments Referral RequestReasonCommentsRadiotherapy On-treatment VisitReasonComments Future AppointmentReasonOnset DateCommentsMed Zdqyuu4406/05/2024ReasonComments Nutrition TelephoneReasonOnset DateCommentsMed Ksoyrr8306/26/2024ReasonOnset Date CommentsRefill Igeljgl8707/09/2024RitalinReasonCommentsLung CancerReasonComments Referral InformationDermatologyReasonCommentsRadiology CTSpecialtyDiagnoses / ProceduresReferred By ContactReferred To ContactCT IMAGING Diagnoses Syncope and collapse Procedures CT BRAIN WO/W IVCON CT HEAD/BRAIN W/O & W/CONTRAST MATERIAL Michelle Mejia, INSPECTOR HEATING AND REFRIGERATION.MAPPING SPECIALIST [address] [place] [address] Phone: tel: fax: [place] [address] Referral IDStatusReasonStart DateExpiration DateVisits RequestedVisits [id number] Review Auto-Generated Referral /[id number] / ProceduresReferred By ContactReferred To ContactMOLECULAR & FUNCTIONAL IMAGING Diagnoses Syncope and collapse Malignant neoplasm of upper lobe of left lung (HCC) Procedures NM PET/CT SKULL-THIGH SUBSEQUENT PET IMAGING CT ATTENUATION SKULL BASE MID-THIGH Michelle Mejia APRN.MAPPING SPECIALIST [address] [place] [address] [place] [address] Phone: tel: fax: Molecular Imaging [address] [place] [address] Phone: tel: Referral IDStatusReasonStart DateExpiration DateVisits RequestedVisits [id number] Auto-Generated Referral /[id number] CoordinationMRI resultsReasonComments Established PatientReasonCommentsFollow-up3 month follow up; BCAS; with no testing Bilateral carotid artery stenosis; patient is having some head pain fat a 4 right now; been going on for a while now has MR testing coming up for it ReasonCommentsCare CoordinationHeadache & FatigueReasonCommentsCare Coordination PET ResultsReasonOnset DateCommentsMed Mjvwjj8508/07/2024ReasonOnset DateComments Med Viawak1509/19/2024ReasonCommentsCare CoordinationFatigueReasonOnset Date CommentsCare Joombjtvsalg41/17/2025Lab ResultsReasonCommentsFollow-upOV F/U 6-9 MO NO TESTS L/S LLD, SCHED W/PTReasonCommentsHip PainRight hipCoughReason CommentsCare CoordinationLung PainReasonCommentsRadio Gen RMPReasonCommentsCare CoordinationHospital AdmissionReasonCommentsCare CoordinationDischarge Follow Up CallReasonCommentsResultsSpecialtyDiagnoses / ProceduresReferred By Contact Referred To ContactMOLECULAR & FUNCTIONAL IMAGING Diagnoses Malignant neoplasm of unspecified part of unspecified bronchus or lung (HCC) Procedures NM PET/CT SKULL-THIGH SUBSEQUENT PET IMAGING CT ATTENUATION SKULL BASE MID-THIGH Lo Hancock MD [address] [place] [address] Phone: tel: fax: Molecular Imaging [address] [place] [address] Phone: tel: Referral IDStatusReasonStart DateExpiration DateVisits RequestedVisits [id number] Auto-Generated Referral / Care Teams (unrecognized sec tion and content) Team MemberRelationshipSpecialtyStart DateEnd Date Nakia Montez DO [address] [place], [place] [id number] PCP - Treasure CLARK11/05/21 Dick Miranda MD [address] [place] [phone] PCP - GeneralFamily Medicine04/20/23Team MemberRelationshipSpecialtyStart DateEnd Date Basia Vega PCP - GeneralFamily Medicine10/13/11Team MemberRelationshipSpecialtyStart DateEnd Date Dick Miranda [address] [place] [address] PCP - GeneralFamily Medicine10/21/23Team MemberRelationshipSpecialtyStart DateEnd Date Dick Miranda [address] [place] [address] PCP - GeneralFamily Medicine10/21/23Team MemberRelationshipSpecialtyStart DateEnd Date Dick Miranda [address] [place] [address] PCP - GeneralFamily Medicine10/21/23Team MemberRelationshipSpecialtyStart DateEnd Date Dick Miranda [address] [place] [address] PCP - GeneralFamily Medicine10/21/23Team MemberRelationshipSpecialtyStart DateEnd Date Dick Miranda [address] [place] [address] PCP - GeneralFamily Medicine10/21/23Team MemberRelationshipSpecialtyStart DateEnd Date Dick Miranda [address] [place] [address] PCP - GeneralFamily Medicine10/21/23Team MemberRelationshipSpecialtyStart DateEnd Date Dick Miranda [address] [place] [address] PCP - GeneralFamily Medicine10/21/23Team MemberRelationshipSpecialtyStart DateEnd Date Dick Miranda [address] [place] [address] PCP - GeneralFamily Medicine10/21/23Team MemberRelationshipSpecialtyStart DateEnd Date Dick Miranda [address] [place] [address] PCP - GeneralFamily Medicine10/21/23Team MemberRelationshipSpecialtyStart DateEnd Date Dick Miranda [address] [place] [address] PCP - GeneralFamily Medicine10/21/23Team MemberRelationshipSpecialtyStart DateEnd Date Dick Miranda [address] [place] [address] PCP - GeneralFamily Medicine10/21/23 Lo Hancock MD [address] [place] [address] Hematology/Oncology11/04/23 Gerald Abdi MD [address] [place] [address] Hematology/Oncology11/04/23 Olegario Moreira MD [facility] [address] [place] [address] 11/04/23Team MemberRelationshipSpecialtyStart DateEnd Date Dick Miranda [address] [place] [address] [facility] - [facility]/21[facility]23 Lo Hancock MD [address] [place] [address] Hematology/Oncology11/04/23 Gerald Abdi MD [address] [place] [address] Hematology/Oncology11/04/23 Olegario Moreira MD [facility] [address] [place] [address] 11/04/23Team MemberRelationshipSpecialtyStart DateEnd Date Dick Miranda [address] [place] [address] PCP - GeneralFamily Medicine10/21/23 Lo Hancock MD [address] [facility] [place] [address] Hematology/Oncology11/04/23 Gerald Abdi MD [address] [place] [address] Hematology/Oncology11/04/23 Olegario Moreira MD [facility] [employer], [address] [place] [address] 11/04/23 Lo Hancock MD [address] [place] [address] PhysicianHematology/Oncology11/14/23 Michelle Mejia APRN.MAPPING SPECIALIST [address] [place] [address] Nurse PractitionerHematology/Oncology11/14/23 Noemy Chicas, EWELINA [address] [facility] [place] [address] Specialty Care CoordinatorHematology/Oncology11/14/23Team MemberRelationship SpecialtyStart DateEnd Date Dick Miranda [address] [place] [address] PCP - GeneralFamily Medicine10/21/23 Lo Hancock MD [address] [facility] [place] [address] Hematology/Oncology11/04/23 Gerald Abdi MD [address] [place] [address] Hematology/Oncology11/04/23 Olegario Moreira MD [address] [place] [address], [address] [place] [address] 11/04/23 Lo Hancock MD [address] [place] [address] [place] [address] PhysicianHematology/Oncology11/14/23 Michelle Mejia APRN.MAPPING SPECIALIST [address] [place] [address] Nurse PractitionerHematology/Oncology11/14/23 Noemy Chicas, EWELINA [address] [place] [address] Specialty Care CoordinatorHematology/Oncology11/14/23Team MemberRelationship SpecialtyStart DateEnd Date Dick Miranda [address] [place] [facility] [place] [address] PCP - GeneralFamily Medicine10/21/23 Lo Hancock MD [address] [place] [address] Hematology/Oncology11/04/23 Gerald Abdi MD [address] [place] [address] Hematology/Oncology11/04/23 Olegario Moreira MD [facility] [employer], [address] [place] [address] 11/04/23 Lo Hancock MD [address] [place] [address] PhysicianHematology/Oncology11/14/23 Michelle Mejia APRN.MAPPING SPECIALIST [address] [place] [address] Nurse PractitionerHematology/Oncology11/14/23 Noemy Chicas, EWELINA [address] [place] [address] Specialty Care CoordinatorHematology/Oncology11/14/23Team MemberRelationship SpecialtyStart DateEnd Date Dick Miranda [address] [facility] [place] [address] PCP - GeneralFamily Medicine10/21/23 Lo Hancock MD [address] [place] [address] Hematology/Oncology11/04/23 Gerald Abdi MD [address] [place] [address] Hematology/Oncology11/04/23 Olegario Moreira MD [facility] [employer], [address] [place] [address] 11/04/23 Lo Hancock MD [address] [place] [address] PhysicianHematology/Oncology11/14/23 Michelle Mejia, INSPECTOR HEATING AND REFRIGERATION.MAPPING SPECIALIST [address] [place] [address] Nurse PractitionerHematology/Oncology11/14/23 Noemy Chicas, RN [address] [place] [address] Specialty Care CoordinatorHematology/Oncology11/14/23Team MemberRelationship SpecialtyStart DateEnd Date Dick Miranda [address] [facility] [place], [place] [address] PCP - GeneralFamily Medicine10/21/23 Lo Hancock MD [address] [place] [address] Hematology/Oncology11/04/23 Gerald Abdi MD [address] [place] [address] Hematology/Oncology11/04/23 Olegario Moreira MD [address] [place] [address], [address] [place] [address] 11/04/23 Lo Hancock MD [address] [place] [address] [place] [address] PhysicianHematology/Oncology11/14/23 Michelle Mejia, INSPECTOR HEATING AND REFRIGERATION.MAPPING SPECIALIST [address] [place] [address] Nurse PractitionerHematology/Oncology11/14/23 Noemy Chicas, EWELINA [address] [place] [address] Specialty Care CoordinatorHematology/Oncology11/14/23 Steffany Damian LSW Social Worker11/16/23Team MemberRelationshipSpecialtyStart DateEnd Date Dick Miranda [address] [place] [address] PCP - GeneralFamily Medicine10/21/23 Lo Hancock MD [address] [place] [address] [place] [address] Hematology/Oncology11/04/23 Gerald Abdi MD [facility] [place] [place] [address] Hematology/Oncology11/04/23 Olegario Moreira MD [address] [place] [address], [address] [place] [address] 11/04/23 Lo Hancock MD [address] [place] [address] [place] [address] PhysicianHematology/Oncology11/14/23 Michelle Mejia APRN.MAPPING SPECIALIST [address] [place] [address] Nurse PractitionerHematology/Oncology11/14/23 Noemy Chicas RN [address] [place] [address] Specialty Care CoordinatorHematology/Oncology11/14/23 Steffany Damian LSW Social Worker11/16/23Team MemberRelationshipSpecialtyStart DateEnd Date Dick Miranda [address] [place] [address] PCP - GeneralFamily Medicine10/21/23 Lo Hancock MD [address] [place] [address] Hematology/Oncology11/04/23 Gerald Abdi MD [address] [place] [address] Hematology/Oncology11/04/23 Olegario Moreira MD [address] [place] [address], [address] [place] [address] 11/04/23 Lo Hancock MD [address] [place] [address] PhysicianHematology/Oncology11/14/23 Michelle Mejia APRN.MAPPING SPECIALIST [address] [place] [address] Nurse PractitionerHematology/Oncology11/14/23 Noemy Chicas, EWELINA [address] [place] [address] Specialty Care CoordinatorHematology/Oncology11/14/23 Steffany Damian LSW Social Worker11/16/23Team MemberRelationshipSpecialtyStart DateEnd Date Dick Miranda [address] [place] [address] PCP - GeneralFamily Medicine10/21/23 Lo Hancock MD [address] [place] [address] [place] [address] Hematology/Oncology11/04/23 Gerald Abdi MD [address] [place] [address] Hematology/Oncology11/04/23 Olegario Moreira MD [address] [place] [address], [address] [place] [address] 11/04/23 Lo Hancock MD [address] [place] [address] [place] [address] PhysicianHematology/Oncology11/14/23 Michelle Mejia APRN.MAPPING SPECIALIST [address] [place] [address] [place] [address] Nurse PractitionerHematology/Oncology11/14/23 Noemy Chicas, EWELINA [address] [place] [address] [place] [address] Specialty Care CoordinatorHematology/Oncology11/14/23 Steffany Damian LSW Social Worker11/16/23Team MemberRelationshipSpecialtyStart DateEnd Date Dick Miranda [address] [facility] [place] [address] PCP - GeneralFamily Medicine10/21/23 Lo Hancock MD [address] [place] [address] [place] [address] Hematology/Oncology11/04/23 Gerald Abdi MD [address] [place] [address] [place] [address] Hematology/Oncology11/04/23 Olegario Moreira MD [address] [facility] [place] [address] 11/04/23 Lo Hancock MD [address] [place] [address] PhysicianHematology/Oncology11/14/23 Michelle Mejia, ROSA.MAPPING SPECIALIST [address] [place] [address] Nurse PractitionerHematology/Oncology11/14/23 Noemy Chicas, EWELINA [address] [place] [address] Specialty Care CoordinatorHematology/Oncology11/14/23 Steffany Damian LSW Social Worker11/16/23Team MemberRelationshipSpecialtyStart DateEnd Date Dick Miranda [address] [facility] [place] [address] PCP - GeneralFamily Medicine10/21/23 Lo Hancock MD [address] [place] [address] Hematology/Oncology11/04/23 Gerald Abdi MD [address] [place] [address] Hematology/Oncology11/04/23 Olegario Moreira MD [address] [place] [address] 11/04/23 Lo Hancock MD [address] [place] [address] PhysicianHematology/Oncology11/14/23 Michelle Mejia, ROSA.MAPPING SPECIALIST [address] [place] [address] Nurse PractitionerHematology/Oncology11/14/23 Noemy Chicas, EWELINA [address] [place] [address] Specialty Care CoordinatorHematology/Oncology11/14/23 Steffany Damian LSW Social Worker11/16/23Team MemberRelationshipSpecialtyStart DateEnd Date Dick Miranda Mirela [address] [facility] [place] [address] PCP - GeneralFamily Medicine10/21/23 Lo Hancock MD [address] [place] [address] [address] [place], [facility]70 Hematology/Oncology11/04/23 Gerald Abdi MD [address] [place] [address] [place] [address] Hematology/Oncology11/04/23 Olegario Moreira MD [address] [place] [address] [place] [address] 11/04/23 Lo Hancock MD [address] [place] [address] [place] [address] PhysicianHematology/Oncology11/14/23 Michelle Mejia APRN.MAPPING SPECIALIST [address] [place] [address] [place] [address] Nurse PractitionerHematology/Oncology11/14/23 Noemy Chicas, EWELINA [address] [facility] [address] [place] [id number] Specialty Care CoordinatorHematology/Oncology11/14/23 Steffany Damian LSW Social Worker11/16/23Team MemberRelationshipSpecialtyStart DateEnd Date Dick Miranda Mirela [address] [facility] [address] PCP - GeneralFamily Medicine10/21/23 Lo Hancock MD [address] [facility] [address] [place] [id number] Hematology/Oncology11/04/23 Gerald Abdi MD [address] [facility] [address] [place] [phone] Hematology/Oncology11/04/23 Olegario Moreira MD [address] [facility] [address] [place], [facility]70 11/04/23 Lo Hancock MD [address] [facility] [address] [place] [id number] PhysicianHematology/Oncology11/14/23 Michelle Mejia, INSPECTOR HEATING AND REFRIGERATION.MAPPING SPECIALIST [address] [facility] [address] [place], [facility]70 Nurse PractitionerHematology/Oncology11/14/23 Noemy Chicas, EWELINA [address] [facility] [place] [address] Specialty Care CoordinatorHematology/Oncology11/14/23 Steffany Damian LSW Social Worker11/16/23Team MemberRelationshipSpecialtyStart DateEnd Date Dick Miranda MD [address] [place] [place] [address] PCP - GeneralFamily Medicine04/20/23 Montse Duran, RN [address] [place] [address] Registered NurseHumboldt County Memorial Hospitally [facility]10/05/23Te MemberRelationshipSpecialtyStart Date End Date Dick Miranda [address] [place] [address] PCP - GeneralFamily Medicine10/21/23 Lo Hancock MD [address] [facility] [place] [address] Hematology/Oncology11/04/23 Gerald Abdi MD [address] [facility] [address] [place], [facility]70 Hematology/Oncology11/04/23 Olegario Moreira MD [address] [facility] [place] [address] 11/04/23 Lo Hancock MD [address] [facility] [address] [place], [facility]70 PhysicianHematology/Oncology11/14/23 Michelle Mejia, INSPECTOR HEATING AND REFRIGERATION.MAPPING SPECIALIST [address] [facility] [place] [address] Nurse PractitionerHematology/Oncology11/14/23 Noemy Chicas, EWELINA [address] [facility] [place] [address] Specialty Care CoordinatorHematology/Oncology11/14/23 Steffany Damian LSW Social Worker11/16/23Team MemberRelationshipSpecialtyStart DateEnd Date Dick Miranda [address] [place] [address] PCP - [facility] Medicine10/21/23 Lo Hancock MD [address] [place] [address] Hematology/Oncology11/04/23 Gerald Abdi MD [address] [place], [facility]70 Hematology/Oncology11/04/23 Olegario Moreira MD [address] [facility] [address] [place], [facility]70 11/04/23 Lo Hancock MD [address] [facility] [address] [place], [facility]70 PhysicianHematology/Oncology11/14/23 Michelle Mejia APRN.MAPPING SPECIALIST [address] [facility] [place] [address] Nurse PractitionerHematology/Oncology11/14/23 Noemy Chicas, EWELINA [address] [place] [address] Specialty Care CoordinatorHematology/Oncology11/14/23 Steffany Damian LSW Social Worker11/16/23Team MemberRelationshipSpecialtyStart DateEnd Date Dick Miranda MD [address] [place] [address] PCP - GeneralFamily Medicine04/20/23 Montse Duran, RN [address] [place] [address] Registered NurseFamily Medicine10/05/23Team MemberRelationshipSpecialtyStart Date End Date Dick Miranda MD [address] [place] [address] PCP - GeneralFamily Medicine10/21/23 Lo Hancock MD [address] [facility] [place] [address] Hematology/Oncology11/04/23 Gerald Abdi MD [address] [facility] [address] [place] [phone] Hematology/Oncology11/04/23 Olegario Moreira MD [address] [facility] [address] [place] [phone] 11/04/23 Lo Hancock MD [address] [place] [address] [address] [place] [phone] PhysicianHematology/Oncology11/14/23 Michelle Mejia, INSPECTOR HEATING AND REFRIGERATION.MAPPING SPECIALIST [address] [facility] [address] [place] [phone] Nurse PractitionerHematology/Oncology11/14/23 Noemy Chicas, EWELINA [address] [facility] [place] [address] Specialty Care CoordinatorHematology/Oncology11/14/23 Steffany Damian LSW Social Worker11/16/23Team MemberRelationshipSpecialtyStart DateEnd Date Dick Miranda MD [address] [place] [address] PCP - GeneralFamily Medicine10/21/23 Lo Hancock MD [address] [place] [address] Hematology/Oncology11/04/23 Gerald Abdi MD [address] [place] [address] Hematology/Oncology11/04/23 Olegario Moreira MD [address] [place] [address] 11/04/23 Lo Hancock MD [address] [place] [address] [address] [place], [facility]70 PhysicianHematology/Oncology11/14/23 Michelle Mejia, ROSA.MAPPING SPECIALIST [address] [place] [address] Nurse PractitionerHematology/Oncology11/14/23 Noemy Chicas, EWELINA [address] [facility] [place] [address] Specialty Care CoordinatorHematology/Oncology11/14/23 Steffany Damian LSW Social Worker11/16/23Team MemberRelationshipSpecialtyStart DateEnd Date Dick Miranda MD [address] [place] [address] PCP - GeneralFamily Medicine10/21/23 Lo Hancock MD [address] [place] [address] Hematology/Oncology11/04/23 Gerald Abdi MD [address] [place] [address] [address] [place] [phone] Hematology/Oncology11/04/23 Olegario Moreira MD [address] [facility] [address] [place] [phone] 11/04/23 Lo Hancock MD [address] [place] [address] [address] [place], [facility]70 PhysicianHematology/Oncology11/14/23 Michelle Mejia APRN.[facility] [address] [place] [address] [place] [address] Nurse PractitionerHematology/Oncology11/14/23 Noemy Chicas, EWEILNA [address] [facility] [place], [facility]70 Specialty Care CoordinatorHematology/Oncology11/14/23 Steffany Damian LSW Social Worker11/16/23Team MemberRelationshipSpecialtyStart DateEnd Date Dick Miranda MD [address] [place] [address] PCP - GeneralFamily Medicine04/20/23 Montse Duran, EWELINA [address] [place] [address] Registered NurseFamily Medicine10/05/23Team MemberRelationshipSpecialtyStart Date End Date Dick Miranda MD [address] [place] [address] PCP - GeneralFamily Medicine10/21/23 Lo Hancock MD [address] [place] [address] [place] [address] Hematology/Oncology11/04/23 Gerald Abdi MD [address] [place] [address] [place] [address] Hematology/Oncology11/04/23 Olegario Moreira MD [address] [place] [address] [place] [address] 11/04/23 Lo Hancock MD [address] [place] [address] [place] [address] PhysicianHematology/Oncology11/14/23 Michelle Mejia, INSPECTOR HEATING AND REFRIGERATION.MAPPING SPECIALIST [address] [place] [address] [place] [address] Nurse PractitionerHematology/Oncology11/14/23 Noemy Chicas, EWELINA [address] [place] [address] [place] [address] Specialty Care CoordinatorHematology/Oncology11/14/23 Steffany Damian LSW Social Worker11/16/23 Joey Scott, INSPECTOR HEATING AND REFRIGERATION.MAPPING SPECIALIST [address] [place] [address] [place] [address] Hospice & Palliative Fptlfogb56/22/24 Anna Rasmussen RN Specialty Care CoordinatorHospice & Palliative Jxbvnmss73/22/24Team Member RelationshipSpecialtyStart DateEnd Date Dick Miranda MD [address] [place] [address] PCP - GeneralFamily Medicine10/21/23 Lo Hancock MD [address] [place] [address] [place] [address] Hematology/Oncology11/04/23 Gerald Abdi MD [address] [place] [address] [place] [address] Hematology/Oncology11/04/23 Olegario Moreira MD [address] [place] [address] [address] [place], [facility]70 11/04/23 Lo Hancock MD [address] [place] [address] [place] [address] PhysicianHematology/Oncology11/14/23 Michelle Mejia, INSPECTOR HEATING AND REFRIGERATION.MAPPING SPECIALIST [address] [place] [address] [place] [address] Nurse PractitionerHematology/Oncology11/14/23 Noemy Chicas, EWELINA [address] [place] [address] [place] [address] Specialty Care CoordinatorHematology/Oncology11/14/23 Steffany Damian LSW Social Worker11/16/23 Joey Scott, INSPECTOR HEATING AND REFRIGERATION.MAPPING SPECIALIST [address] [place] [address] [place] [address] Hospice & Palliative Ucpwuaro48/22/24 Anna Rasmussen RN Specialty Care CoordinatorHospice & Palliative Eouzyceu37/22/24Team Member RelationshipSpecialtyStart DateEnd Date Dick Miranda MD [address] [place] [address] PCP - GeneralFamily Medicine10/21/23 Lo Hancock MD [address] [place] [address] Hematology/Oncology11/04/23 Gerald Abdi MD [address] [place] [address] Hematology/Oncology11/04/23 Olegario Moreira MD [address] [place] [address] 11/04/23 Lo Hancock MD [address] [place] [address] [place] [address] PhysicianHematology/Oncology11/14/23 Michelle Mejia, INSPECTOR HEATING AND REFRIGERATION.MAPPING SPECIALIST [address] [place] [address] [place] [address] Nurse PractitionerHematology/Oncology11/14/23 Noemy Chicas RN [address] [place] [address] [place] [address] Specialty Care CoordinatorHematology/Oncology11/14/23 Steffany Damian LSW Social Worker11/16/23 Joey Scott, INSPECTOR HEATING AND REFRIGERATION.MAPPING SPECIALIST [address] [place] [address] [place] [address] Hospice & Palliative Ardzxhtz65/22/24 Anna Rasmussen RN Specialty Care CoordinatorHospice & Palliative Ihzbuqoq13/22/24Team Member RelationshipSpecialtyStart DateEnd Date Dick Miranda MD [address] [place] [address] PCP - GeneralFamily Medicine10/21/23 Lo Hancock MD [address] [place] [address] Hematology/Oncology11/04/23 Gerald Abdi MD [address] [place] [address] [place] [address] Hematology/Oncology11/04/23 Olegario Moreira MD [address] [place] [address] [place] [address] 11/04/23 Lo Hancock MD [address] [place] [address] [place] [address] PhysicianHematology/Oncology11/14/23 Michelle Mejia, INSPECTOR HEATING AND REFRIGERATION.MAPPING SPECIALIST [address] [place] [address] [place] [address] Nurse PractitionerHematology/Oncology11/14/23 Noemy Chicas RN [address] [place] [address] [place] [address] Specialty Care CoordinatorHematology/Oncology11/14/23 Steffany Damian LSW Social Worker11/16/23 Joey Scott, INSPECTOR HEATING AND REFRIGERATION.MAPPING SPECIALIST [address] [place] [address] [place] [address] Hospice & Palliative Mwviabyw71/22/24 Anna Rasmussen RN Specialty Care CoordinatorHospice & Palliative Vruyjged05/22/24Team Member RelationshipSpecialtyStart DateEnd Date Dick Miranda MD [address] [place] [address] PCP - [facility] Medicine04/20/23 Montse Duran, EWELINA [address] [place] [address] Registered NurseMemorial Health University [facility] Center10/05/23Team MemberRelationshipSpecialtyStart Date End Date Dick Miranda MD [address] [place] [address] PCP - [facility]04/20/23 Montse Duran RN [address] [place] [address] Registered NurseMemorial Health University Medical Center10/05/23Te MemberRelationshipSpecialtyStart Date End Date Dick Miranda MD [address] [place] [address] PCP - Generalmily Medicine10/21/23 Lo Hancock MD [address] [facility] [place] [address] Hematology/Oncology11/04/23 Gerald Abdi MD [address] [facility] [place] [address] Hematology/Oncology11/04/23 Olegario Moreira MD [address] [facility] [place] [address] 11/04/23 Lo Hancock MD [address] [facility] [place] [address] PhysicianHematology/Oncology11/14/23 Michelle Mejia APRN.MAPPING SPECIALIST [address] [facility] [place] [address] Nurse PractitionerHematology/Oncology11/14/23 Noemy Chicas, EWELINA [address] [place] [address] Specialty Care CoordinatorHematology/Oncology11/14/23 Steffany Damian LSW Social Worker11/16/23 Joey Scott APRN.MAPPING SPECIALIST [address] [place] [address] Hospice & Palliative Vddtzytw12/22/24 Anna Rasmussen RN Specialty Care CoordinatorHospice & Palliative Bcvkongo57/22/24Team Member RelationshipSpecialtyStart DateEnd Date Dick Miranda MD [address] [place] [address] PCP - GeneralFamily Medicine04/20/23 Nakia Montez DO [address] [place] [address] PCP - [facility]12/06/23 Montse Duran RN [address] [facility] [place] [address] Registered NurseFamily Medicine10/05/23Team MemberRelationshipSpecialtyStart Date End Date Dick Miranda MD [address] [place] [address] PCP - GeneralFamily Medicine04/20/23 Nakia Montez DO [address] [place] [address] PCP - [facility]12/06/23 Montse Duran RN [address], [place] [address] Registered NurseMemorial Health University Medical Center10/05/23Team MemberRelationshipSpecialtyStart Date End Date Dick Miranda MD [address] [place] [address] PCP - Generalmily Medicine04/20/23 Nakia Montez DO [address] [place] [address] PCP - [place]12/06/23 Montse Duran, EWELINA [address] [place], [place] [address] Registered NurseMemorial Health University Medical Center10/05/23Team MemberRelationshipSpecialtyStart Date End Date Dick Miranda MD [address] [place] [address] PCP - Generalmi Medicine10/21/23 Lo Hancock MD [address] [facility] [address] [place], [facility]70 Hematology/Oncology11/04/23 Gerald Abdi MD [address] [facility] [address] [place], [place] [address]70 Hematology/Oncology11/04/23 Olegario Moreira MD [address] [facility] [place] [address] 11/04/23 Lo Hancock MD [address] [facility] [place] [address] PhysicianHematology/Oncology11/14/23 Michelle Mejia APRN.MAPPING SPECIALIST [address] [facility] [address] [place], [facility]70 Nurse PractitionerHematology/Oncology11/14/23 Noemy Chicas, EWELINA [address] [place] [address] Specialty Care CoordinatorHematology/Oncology11/14/23 Steffany Damian LSW Social Worker11/16/23 Joey Scott, ROSA.MAPPING SPECIALIST [address] [place] [address] [place] [address] Hospice & Palliative Wvykryup80/22/24 Anna Rasmussen RN Specialty Care CoordinatorHospice & Palliative Qglhdtad25/22/24Team Member RelationshipSpecialtyStart DateEnd Date Dick Miranda MD [address] [place] [address] PCP - GeneralFamily Medicine04/20/23 Montse Duran RN [address] [facility] [facility] [address] Registered NurseFamily Medicine10/05/23Team MemberRelationshipSpecialtyStart Date End Date Dick Miranda MD [address] [place] [address] PCP - GeneralFamily Medicine04/20/23 Nakia Montez DO [address] [place] [address] PCP - [place]12/06/23 Montse Duran RN [address] [facility] [place] [address] Registered NurseFamily Medicine10/05/23Team MemberRelationshipSpecialtyStart Date End Date Dick Miranda MD [address] [place] [address] PCP - GeneralFamily Medicine10/21/23 Lo Hancock MD [address] [place] [address] [place] [address] Hematology/Oncology11/04/23 Gerald Abdi MD [address] [place] [address] [place] [address] Hematology/Oncology11/04/23 Olegario Moreira MD [address] [place] [address] [place] [address] 11/04/23 Lo Hancock MD [address] [place] [address] [address] [place], [facility]70 PhysicianHematology/Oncology11/14/23 Michelle Mejia, INSPECTOR HEATING AND REFRIGERATION.MAPPING SPECIALIST [address] [place] [address] [place] [address] Nurse PractitionerHematology/Oncology11/14/23 Noemy Chicas RN [address] [place] [address] [place] [address] Specialty Care CoordinatorHematology/Oncology11/14/23 Steffany Damian LSW Social Worker11/16/23 Joey Scott, INSPECTOR HEATING AND REFRIGERATION.MAPPING SPECIALIST [address] [place] [address] [place] [address] Hospice & Palliative Rbmwqhwq57/22/24 Anna Rasmussen RN Specialty Care CoordinatorHospice & Palliative Dkflkoka97/22/24Team Member RelationshipSpecialtyStart DateEnd Date Dick Miranda MD [address] [place] [address] PCP - [facility]04/20/23 Montse Duran RN [address] [place] [address] Registered NurseMem[facility] Health [facility] Center10/05/23Team MemberRelationshipSpecialtyStart Date End Date Dick Miranda MD [address] [place] [address] PCP - [facility]04/20/23 Montse Duran RN [address] [place] [address] Registered NurseMemorial Health University [facility] Center10/05/23Team MemberRelationshipSpecialtyStart Date End Date Dick Miranda MD [address] [place] [address] [facility] - [facility]04/20/23 Montse Duran RN [address] [place] [address] Registered NurseMemorial Health University Medical Center10/05/23Te MemberRelationshipSpecialtyStart Date End Date Dick Miranda MD [address] [place] [address] PCP - GeneralMemorial Health University Medical Center10/21/23 Lo Hancock MD [address] [place] [address] [place] [address] Hematology/Oncology11/04/23 Gerald Abdi MD [address] [place] [address] Hematology/Oncology11/04/23 Olegario Moreira MD [address] [place] [address] 11/04/23 Lo Hancock MD [address] [place] [address] [place] [address] PhysicianHematology/Oncology11/14/23 Michelle Mejia, INSPECTOR HEATING AND REFRIGERATION.MAPPING SPECIALIST [address] [place] [address] Nurse PractitionerHematology/Oncology11/14/23 Noemy Chicas, EWELINA [address] [place] [address] Specialty Care CoordinatorHematology/Oncology11/14/23 Steffany Damian LSW Social Worker11/16/23 Joey Scott, INSPECTOR HEATING AND REFRIGERATION.MAPPING SPECIALIST [address] [place] [address] [place] [address] Hospice & Palliative Omkpctqv06/22/24 Anna Rasmussen RN Specialty Care CoordinatorHospice & Palliative Xvmpzljg67/22/24Team Member RelationshipSpecialtyStart DateEnd Date Dick Miranda MD PCP - GeneralFamily Medicine09/27/23Team MemberRelationshipSpecialtyStart DateEnd Date Dick Miranda MD PCP - GeneralFamily Medicine09/27/23Team MemberRelationshipSpecialtyStart DateEnd Date Dick Miranda MD PCP - GeneralFamily Medicine09/27/23Team MemberRelationshipSpecialtyStart DateEnd Date Dick Miranda MD [address] [place] [address] PCP - GeneralFamily Medicine04/20/23 Nakia Montez DO [address] [place], [place] [address] PCP - [place]12/06/23 Montse Duran, EWELINA [address] [place] [address] Registered NurseHumboldt County Memorial Hospitally [facility]10/05/23Team MemberRelationshipSpecialtyStart Date End Date Dick Miranda MD [address] [place] [address] PCP - GeneralFamily Medicine10/21/23 Lo Hancock MD [address] [facility] [address] [place] [phone] Hematology/Oncology11/04/23 Gerald Abdi MD [address] [facility] [place] [address] Hematology/Oncology11/04/23 Olegario Moreira MD [address] [facility] [place] [address] 11/04/23 Lo Hancock MD [address] [facility] [place] [address] PhysicianHematology/Oncology11/14/23 Michelle Mejia APRN.MAPPING SPECIALIST [address] [facility] [place] [address] Nurse PractitionerHematology/Oncology11/14/23 Noemy Chicas, EWELINA [address] [place] [address] Specialty Care CoordinatorHematology/Oncology11/14/23 Steffany Damian LSW Social Worker11/16/23 Joey Scott APRN.MAPPING SPECIALIST [address] [place] [address] [place] [address] Hospice & Palliative Sjdayujk89/22/24 Anna Rasmussen RN Specialty Care CoordinatorHospice & Palliative Ctupvzwr76/22/24Team Member RelationshipSpecialtyStart DateEnd Date Dick Miranda MD [address] [place] [address] PCP - GeneralFamily Medicine10/21/23 Lo Hancock MD [address] [place] [address] [place] [address] Hematology/Oncology11/04/23 Gerald Abdi MD [address] [place] [address] [place] [address] Hematology/Oncology11/04/23 Olegario Moreira MD [address] [place] [address] [place] [address] 11/04/23 Lo Hancock MD [address] [place] [address] [place] [address] PhysicianHematology/Oncology11/14/23 Michelle Mejia, ROSA.MAPPING SPECIALIST [address] [place] [address] [address] [place], [facility]70 Nurse PractitionerHematology/Oncology11/14/23 Noemy Chicas, EWELINA [address] [place] [address] [place] [address] Specialty Care CoordinatorHematology/Oncology11/14/23 Steffany Damian LSW Social Worker11/16/23 Joey Scott, ROSA.MAPPING SPECIALIST [address] [place] [address] [place] [address] Hospice & Palliative Zkhamxzp76/22/24 Anna Rasmussen RN Specialty Care CoordinatorHospice & Palliative Jmzpnwbk01/22/24Team Member RelationshipSpecialtyStart DateEnd Date Dick Miranda MD [address] [facility] [place], [place] [address] PCP - GeneralFamily Medicine10/21/23 Lo Hancock MD [address] [place] [address] [place] [address] Hematology/Oncology11/04/23 Gerald Abdi MD [address] [place] [address] [address] [place], [facility]70 Hematology/Oncology11/04/23 Olegario Moreira MD [address] [place] [address] [place] [address] 11/04/23 Lo Hancock MD [address] [place] [address] [place] [address] PhysicianHematology/Oncology11/14/23 Michelle Mejia, ROSA.MAPPING SPECIALIST [address] [place] [address] [place] [address] Nurse PractitionerHematology/Oncology11/14/23 Noemy Chicas, EWELINA [address] [place] [place] [address] Specialty Care CoordinatorHematology/Oncology11/14/23 Steffany Damian LSW Social Worker11/16/23 Joey Scott, INSPECTOR HEATING AND REFRIGERATION.MAPPING SPECIALIST [address] [place] [address] [place] [address] Hospice & Palliative Iznzjoyb52/22/24 Anna Rasmussen RN Specialty Care CoordinatorHospice & Palliative Nlprdsrs05/22/24Team Member RelationshipSpecialtyStart DateEnd Date Dick Miranda MD [address] [facility] [place] [address] PCP - GeneralFamily Medicine10/21/23 Lo Hancock MD [address] [place] [address] [place] [address] Hematology/Oncology11/04/23 Gerald Abdi MD [address] [place] [address] [address] [place], [facility]70 Hematology/Oncology11/04/23 Olegario Moreira MD [address] [place] [address] [place] [address] 11/04/23 Lo Hancock MD [address] [place] [address] [place] [address] PhysicianHematology/Oncology11/14/23 Michelle Mejia, INSPECTOR HEATING AND REFRIGERATION.MAPPING SPECIALIST [address] [place] [address] Nurse PractitionerHematology/Oncology11/14/23 Noemy Chicas, EWELINA [address] [place] [address] Specialty Care CoordinatorHematology/Oncology11/14/23 Steffany Damian LSW Social Worker11/16/23 Joey Scott, INSPECTOR HEATING AND REFRIGERATION.MAPPING SPECIALIST [address] [place] [address] Hospice & Palliative Icanxoby56/22/24 Anna Rasmussen RN Specialty Care CoordinatorHospice & Palliative Xyygcrdg48/22/24Team Member RelationshipSpecialtyStart DateEnd Date Dick Miranda MD [address] [place] [address] PCP - GeneralFamily Medicine10/21/23 Lo Hancock MD [address] [place] [address] [place] [address] Hematology/Oncology11/04/23 Gerald Abdi MD [address] [place] [address] [address] [place], [facility]70 Hematology/Oncology11/04/23 Olegario Moreira MD [address] [place] [address] 11/04/23 Lo Hancock MD [address] [place] [address] [place] [address] PhysicianHematology/Oncology11/14/23 Michelle Mejia, INSPECTOR HEATING AND REFRIGERATION.MAPPING SPECIALIST [address] [place] [address] Nurse PractitionerHematology/Oncology11/14/23 Noemy Chicas, EWELINA [address] [place] [address] Specialty Care CoordinatorHematology/Oncology11/14/23 Steffany Damian LSW Social Worker11/16/23 Joey Scott, INSPECTOR HEATING AND REFRIGERATION.MAPPING SPECIALIST [address] [place] [address] Hospice & Palliative Hvycoyzg06/22/24 Anna Rasmussen RN Specialty Care CoordinatorHospice & Palliative Wieqxbtj89/22/24Team Member RelationshipSpecialtyStart DateEnd Date Dick Miranda MD [address] [facility] [address] PCP - GeneralFamily Medicine10/21/23 Lo Hancock MD [address] [place] [address] [address] [place], [facility]70 Hematology/Oncology11/04/23 Gerald Abdi MD [address] [place] [address] [address] [place], [facility]70 Hematology/Oncology11/04/23 Olegario Moreira MD [address] [place] [address] [place] [address] 11/04/23 Lo Hancock MD [address] [place] [address] [place] [address] PhysicianHematology/Oncology11/14/23 Michelle Mejia, INSPECTOR HEATING AND REFRIGERATION.MAPPING SPECIALIST [address] [place] [address] Nurse PractitionerHematology/Oncology11/14/23 Noemy Chicas, EWELINA [address] [place] [address] Specialty Care CoordinatorHematology/Oncology11/14/23 Steffany Damian LSW Social Worker11/16/23 Joey Scott, INSPECTOR HEATING AND REFRIGERATION.MAPPING SPECIALIST [address] [place] [address] Hospice & Palliative Hfidwvud68/22/24 Anna Rasmussen RN Specialty Care CoordinatorHospice & Palliative Mfsplupc72/22/24Team Member RelationshipSpecialtyStart DateEnd Date Nakia Montez DO [address] [place] [address] PCP - GeneralFamily Medicine04/13/21Team MemberRelationshipSpecialtyStart DateEnd Date Dick Miranda MD PCP - GeneralFamily Medicine09/27/23Team MemberRelationshipSpecialtyStart DateEnd Date Dick Miranda MD [address] [place] [address] PCP - GeneralFamily Medicine04/20/23 Montse Duran, EWELINA [address] [place] [address] Registered NurseFamily Medicine10/05/23Team MemberRelationshipSpecialtyStart Date End Date Dick Miranda MD [address] [place] [phone] PCP - Generalmily Medicine04/20/23 Montse Duran, RN [address] [place] [address] Registered [facility]10/05/23Team MemberRelationshipSpecialtyStart Date End Date Dick Miranda MD PCP - Generalmily Medicine09/27/23Team MemberRelationshipSpecialtyStart DateEnd Date Dick Miranda MD [address] [place] [address] [facility]CP - [facility]09/27/23Team MemberRelationshipSpecialtyStart DateEnd Date Dick Miranda MD [address] [place] [address] PCP - [facility]09/27/23Team MemberRelationshipSpecialtyStart DateEnd Date Dick Miranda MD PCP - Generalmily Medicine09/27/23Team MemberRelationshipSpecialtyStart DateEnd Date Dick Miranda MD PCP - Generalmily Medicine09/27/23Team MemberRelationshipSpecialtyStart DateEnd Date Dick Miranda MD PCP - Generalmily Medicine09/27/23Team MemberRelationshipSpecialtyStart DateEnd Date Dick Miranda MD [address] [place] [address] PCP - [facility]04/20/23 Montse Duran RN [address] [place] [address] [facility]Mem[facility]10/05/23Team MemberRelationshipSpecialtyStart Date End Date Dick Miranda MD [address] [place] [address] PCP - [facility]04/20/23 Montse Duran RN [address] [place] [address] [facility]10/05/23Te MemberRelationshipSpecialtyStart Date End Date Dick Miranda MD [address] [place] [address] PCP - GeneralmiPied[facility]ie10/21/23 Lo Hancock MD [address] [facility] [address] [place] [address] Hematology/Oncology11/04/23 Gerald Abdi MD [address] [facility] [address] [place] [address]70 Hematology/Oncology11/04/23 Olegario Moreira MD [address] [facility] [address] [place], [facility]70 11/04/23 Lo Hancock MD [address] [place], [facility]70 PhysicianHematology/Oncology11/14/23 Micehlle Mejia APRN.MAPPING SPECIALIST [address] [place], [facility]70 Nurse PractitionerHematology/Oncology11/14/23 Nomey Chicas, EWELINA [address] [place] [address] [place] [address] Specialty Care CoordinatorHematology/Oncology11/14/23 Steffany Damian LSW Social Worker11/16/23 Joey Scott, ROSA.MAPPING SPECIALIST [address] [place] [address] [place] [address] Hospice & Palliative Icseimlc91/22/24 Anna Rasmussen RN Specialty Care CoordinatorHospice & Palliative Wmbssyzi74/22/24Team Member RelationshipSpecialtyStart DateEnd Date Dick Miranda MD [address] [facility] [place], [place] [address] PCP - GeneralFamily Medicine10/21/23 Lo Hancock MD [address] [place] [address] [place] [address] Hematology/Oncology11/04/23 Gerald Abdi MD [address] [place] [address] [address] [place], [facility]70 Hematology/Oncology11/04/23 Olegario Moreira MD [address] [place] [address] [place] [address] 11/04/23 Lo Hancock MD [address] [place] [address] [place] [address] PhysicianHematology/Oncology11/14/23 Michelle Mejia, ROSA.MAPPING SPECIALIST [address] [place] [address] [place] [address] Nurse PractitionerHematology/Oncology11/14/23 Noemy Chicas, EWELINA [address] [place] [address] Specialty Care CoordinatorHematology/Oncology11/14/23 Steffany Damian LSW Social Worker11/16/23 Joey Scott, INSPECTOR HEATING AND REFRIGERATION.MAPPING SPECIALIST [address] [place] [address] [place] [address] Hospice & Palliative Hpifregz35/22/24 Anna Rasmussen RN Specialty Care CoordinatorHospice & Palliative Sltwrsef23/22/24Team Member RelationshipSpecialtyStart DateEnd Date Dick Miranda MD [address] [facility] [place] [address] PCP - GeneralFamily Medicine10/21/23 Lo Hancock MD [address] [place] [address] [place] [address] Hematology/Oncology11/04/23 Gerald Abdi MD [address] [place] [address] [address] [place], [facility]70 Hematology/Oncology11/04/23 Olegario Moreira MD [address] [place] [address] [place] [address] 11/04/23 oL Hancock MD [address] [place] [address] [place] [address] PhysicianHematology/Oncology11/14/23 Michelle Mejia, INSPECTOR HEATING AND REFRIGERATION.MAPPING SPECIALIST [address] [place] [address] Nurse PractitionerHematology/Oncology11/14/23 Noemy Chicas, EWELINA [address] [place] [address] Specialty Care CoordinatorHematology/Oncology11/14/23 Steffany Damian LSW Social Worker11/16/23 Joey Scott, INSPECTOR HEATING AND REFRIGERATION.MAPPING SPECIALIST [address] [place] [address] Hospice & Palliative Mpvbjjxx54/22/24 Anna Rasmussen RN Specialty Care CoordinatorHospice & Palliative Pnkzczux67/22/24Team Member RelationshipSpecialtyStart DateEnd Date Dick Miranda MD [address] [place] [address] PCP - GeneralFamily Medicine10/21/23 Lo Hancock MD [address] [place] [address] [place] [address] Hematology/Oncology11/04/23 Gerald Abdi MD [address] [place] [address] [address] [place], [facility]70 Hematology/Oncology11/04/23 Olegario Moreira MD [address] [place] [address] 11/04/23 Lo Hancock MD [address] [place] [address] [place] [address] PhysicianHematology/Oncology11/14/23 Michelle Mejia, INSPECTOR HEATING AND REFRIGERATION.MAPPING SPECIALIST [address] [place] [address] Nurse PractitionerHematology/Oncology11/14/23 Noemy Chicas, EWELINA [address] [place] [address] Specialty Care CoordinatorHematology/Oncology11/14/23 Steffany Damian LSW Social Worker11/16/23 Joey Scott, INSPECTOR HEATING AND REFRIGERATION.MAPPING SPECIALIST [address] [place] [address] Hospice & Palliative Hytjtwou51/22/24 Anna Rasmussen RN Specialty Care CoordinatorHospice & Palliative Nuyvajai99/22/24Team Member RelationshipSpecialtyStart DateEnd Date Dick Miranda MD [address] [facility] [address] PCP - GeneralFamily Medicine10/21/23 Lo Hancock MD [address] [place] [address] [address] [place], [facility]70 Hematology/Oncology11/04/23 Gerald Abdi MD [address] [place] [address] [address] [place], [facility]70 Hematology/Oncology11/04/23 Olegario Moreira MD [address] [place] [address] [place] [address] 11/04/23 Lo Hancock MD [address] [place] [address] [place] [address] PhysicianHematology/Oncology11/14/23 Michelle Mejia, INSPECTOR HEATING AND REFRIGERATION.MAPPING SPECIALIST [address] [place] [address] Nurse PractitionerHematology/Oncology11/14/23 Noemy Chicas, EWELINA [address] [place] [address] Specialty Care CoordinatorHematology/Oncology11/14/23 Steffany Damian LSW Social Worker11/16/23 Joey Scott, INSPECTOR HEATING AND REFRIGERATION.MAPPING SPECIALIST [address] [place] [address] Hospice & Palliative Cxzqqswh55/22/24 Anna Rasmussen RN Specialty Care CoordinatorHospice & Palliative Cllbsmau58/22/24Team Member RelationshipSpecialtyStart DateEnd Date Dick Miranda MD [address] [place] [address] PCP - GeneralFamily Medicine10/21/23 Lo Hancock MD [address] [place] [address] [place] [address] Hematology/Oncology11/04/23 Gerald Abdi MD [address] [place] [address] [place] [address] Hematology/Oncology11/04/23 Olegario Moreira MD [address] [place] [address] [place] [address] 11/04/23 Lo Hancock MD [address] [place] [address] [place] [address] PhysicianHematology/Oncology11/14/23 Michelle Mejia, INSPECTOR HEATING AND REFRIGERATION.MAPPING SPECIALIST [address] [place] [address] Nurse PractitionerHematology/Oncology11/14/23 Noemy Chicas, EWELINA [address] [place] [address] Specialty Care CoordinatorHematology/Oncology11/14/23 Steffany Damian LSW Social Worker11/16/23 Joey Scott, INSPECTOR HEATING AND REFRIGERATION.MAPPING SPECIALIST [address] [place] [address] Hospice & Palliative Rjjpoxsp28/22/24 Anna Rasmussen RN Specialty Care CoordinatorHospice & Palliative Lajrqtvb01/22/24Team Member RelationshipSpecialtyStart DateEnd Date Dick Miranda MD [address] [place] [address] PCP - GeneralFamily Medicine10/21/23 Lo Hancock MD [address] [place] [address] Hematology/Oncology11/04/23 Gerald Abdi MD [address] [place] [address] Hematology/Oncology11/04/23 Olegario Moreira MD [address] [place] [address] 11/04/23 Lo Hancock MD [address] [place] [address] PhysicianHematology/Oncology11/14/23 Michelle Mejia, INSPECTOR HEATING AND REFRIGERATION.MAPPING SPECIALIST [address] [place] [address] Nurse PractitionerHematology/Oncology11/14/23 Noemy Chicas, EWELINA [address] [place] [address] Specialty Care CoordinatorHematology/Oncology11/14/23 Steffany Damian LSW Social Worker11/16/23 Joey Scott, INSPECTOR HEATING AND REFRIGERATION.MAPPING SPECIALIST [address] [place] [address] [place] [address] Hospice & Palliative Hzokkmkq75/22/24 Anna Rasmussen RN Specialty Care CoordinatorHospice & Palliative Wgtopzwt68/22/24Team Member RelationshipSpecialtyStart DateEnd Date Dick Miranda MD [address] [facility] [place] [address] PCP - GeneralFamily Medicine10/21/23 Lo Hancock MD [address] [place] [address] [place] [address] Hematology/Oncology11/04/23 Gerald Abdi MD [address] [place] [address] [place] [address] Hematology/Oncology11/04/23 Olegario Moreira MD [address] [place] [address] 11/04/23 Lo Hancock MD [address] [place] [address] [place] [address] PhysicianHematology/Oncology11/14/23 Michelle Mejia, INSPECTOR HEATING AND REFRIGERATION.MAPPING SPECIALIST [address] [place] [address] Nurse PractitionerHematology/Oncology11/14/23 Noemy Chicas, EWELINA [address] [place] [address] Specialty Care CoordinatorHematology/Oncology11/14/23 Steffany Damian LSW Social Worker11/16/23 Joey Scott, INSPECTOR HEATING AND REFRIGERATION.MAPPING SPECIALIST [address] [place] [address] [place] [address] Hospice & Palliative Ubhewxcu25/22/24 Anna Rasmussen RN Specialty Care CoordinatorHospice & Palliative Ozzajjhl76/22/24Team Member RelationshipSpecialtyStart DateEnd Date Dick Miranda MD [address] [facility] [place] [address] PCP - GeneralFamily Medicine10/21/23 Lo Hancock MD [address] [place] [address] [address] [place], [facility]70 Hematology/Oncology11/04/23 Gerald Abdi MD [address] [place] [address] [address] [place], [facility]70 Hematology/Oncology11/04/23 Olegario Moreira MD [address] [place], [facility]70 11/04/23 Lo Hancock MD [address] [place] [address] [place] [address] PhysicianHematology/Oncology11/14/23 Michelle Mejia APRN.MAPPING SPECIALIST [address] [place] [address] [place] [address] Nurse PractitionerHematology/Oncology11/14/23 Noemy Chicas, EWELINA [address] [place] [address] Specialty Care CoordinatorHematology/Oncology11/14/23 Steffany Damian LSW Social Worker11/16/23 Joey Scott APRN.MAPPING SPECIALIST [address] [place] [address] [place] [address] Hospice & Palliative Keysawbt16/22/24 Anna Rasmussen RN Specialty Care CoordinatorHospice & Palliative Riyxsmmg37/22/24Team Member RelationshipSpecialtyStart DateEnd Date Dick Miranda MD [address] [place] [address] PCP - GeneralFamily Medicine04/20/23 Nakia Montez DO [address] [phone] PCP - [place]12/06/23 Montse Duran, EWELINA [address] [place] [address] Registered NurseFamily Medicine10/05/23Team MemberRelationshipSpecialtyStart Date End Date Dick Miranda MD [address] [place] [address] PCP - GeneralFamily Medicine04/20/23 Jasen Nakia MorenoDO [address] [facility] [address] [place] [address] PCP - [place]12/06/23 Montse Duran, EWELINA [address] [place], [place] [address] Registered NurseFamily Medicine10/05/23Team MemberRelationshipSpecialtyStart Date End Date Dick Miranda MD [address] [address] PCP - GeneralFamily Medicine10/21/23 Lo Hancock MD [address] [facility] [place] [address] Hematology/Oncology11/04/23 Gerald Abdi MD [address] [facility] [address] [place] [id number] Hematology/Oncology11/04/23 Olegario Moreira MD [address] [facility] [place] [address] 11/04/23 Lo Hancock MD [address] [place] [address] PhysicianHematology/Oncology11/14/23 Michelle Mejia, INSPECTOR HEATING AND REFRIGERATION.MAPPING SPECIALIST [address] [facility] [place] [address] Nurse PractitionerHematology/Oncology11/14/23 Noemy Chicas, EWELINA [address] [facility] [place] [address] Specialty Care CoordinatorHematology/Oncology11/14/23 Steffany Damian LSW Social Worker11/16/23 Joey Scott APRN.MAPPING SPECIALIST [address] [place] [address] Hospice & Palliative Anoptwoo39/22/24 Anna Rasmussen RN Specialty Care CoordinatorHospice & Palliative Pirvcwll75/22/24Team Member RelationshipSpecialtyStart DateEnd Date Dick Miranda MD [address] [place], [place] [address] PCP - GeneralFamily Medicine10/21/23 Lo Hancock MD [address] [place] [address] [place] [address] Hematology/Oncology11/04/23 Gerald Abdi MD [address] [place] [address] [place] [address] Hematology/Oncology11/04/23 Olegario Moreira MD [address] [place] [address] 11/04/23 Lo Hancock MD [address] [place] [address] [place] [address] PhysicianHematology/Oncology11/14/23 Michelle Mejia APRN.MAPPING SPECIALIST [address] [place] [address] Nurse PractitionerHematology/Oncology11/14/23 Noemy Chicas, RN [address] [place] [address] Specialty Care CoordinatorHematology/Oncology11/14/23 Steffany Damian LSW Social Worker11/16/23 Joey Scott APRN.MAPPING SPECIALIST [address] [place] [address] Hospice & Palliative Tltvwhvw35/22/24 Anna Rasmussen RN Specialty Care CoordinatorHospice & Palliative Mrlqadpu66/22/24Team Member RelationshipSpecialtyStart DateEnd Date Dick Miranda MD [address] [place] [address] PCP - GeneralFamily Medicine10/21/23 Lo Hancock MD [address] [place] [address] [place] [address] Hematology/Oncology11/04/23 Gerald Abdi MD [address] [place] [address] [place] [address] Hematology/Oncology11/04/23 Olegario Moreira MD [address] [place] [address] 11/04/23 Lo Hancock MD [address] [place] [address] PhysicianHematology/Oncology11/14/23 Michelle Mejia, ROSA.MAPPING SPECIALIST [address] [place] [address] Nurse PractitionerHematology/Oncology11/14/23 Noemy Chicas, EWELINA [address] [place] [address] Specialty Care CoordinatorHematology/Oncology11/14/23 Steffany Damian LSW Social Worker11/16/23 Joey Scott, INSPECTOR HEATING AND REFRIGERATION.MAPPING SPECIALIST [address] [place] [address] Hospice & Palliative Ohpchjvl28/22/24 Anna Rasmussen RN Specialty Care CoordinatorHospice & Palliative Becifpty16/22/24Team Member RelationshipSpecialtyStart DateEnd Date Dick Miranda MD [address] [place] [address] PCP - GeneralFamily Medicine04/20/23 Nakia Montez DO [address] [facility] [address] [place] [address] PCP - [place]12/06/23 Montse Duran, EWELINA [address] [place] [address] Registered NurseFamily Medicine10/05/23Team MemberRelationshipSpecialtyStart Date End Date Dick Miranda MD [address] [place] [address] PCP - GeneralFamily Medicine10/21/23 Lo Hancock MD [address] [facility] [place], [place] [address] Hematology/Oncology11/04/23 Gerald Abdi MD [address] [facility] [place], [place] 8597[address] Hematology/Oncology11/04/23 Olegario Moreira MD [address] [place] [address] [place] [address] 11/04/23 Lo Hancock MD [address] [place] [address] [place] [address] PhysicianHematology/Oncology11/14/23 Michelle Mejia, INSPECTOR HEATING AND REFRIGERATION.MAPPING SPECIALIST [address] [place] [address] [place] [address] Nurse PractitionerHematology/Oncology11/14/23 Noemy Chicas, EWELINA [address] [place] [address] [place] [address] Specialty Care CoordinatorHematology/Oncology11/14/23 Steffany Damian LSW Social Worker11/16/23 Joey Scott, INSPECTOR HEATING AND REFRIGERATION.MAPPING SPECIALIST [address] [place] [address] [place] [address] Hospice & Palliative Aabyposw78/22/24 Anna Rasmussen RN Specialty Care CoordinatorHospice & Palliative Ouixbdrc47/22/24Team Member RelationshipSpecialtyStart DateEnd Date Dick Miranda MD [address] [place] [address] PCP - GeneralFamily Medicine04/20/23 Nakia Montez DO [address] [phone] PCP - [place]12/06/23 Montse Duran, EWELINA [address] [place] [address] Registered NurseMem[facility] Center10/05/23Team MemberRelationshipSpecialtyStart Date End Date Dick Miranda MD [address] [place] [address] PCP - GeneralFamily Medicine04/20/23 Dick Miranda MD [address] [place] [address] PCP - [place]06/05/24 Montse Duran, EWELINA [address] [place] [address] Registered NurseMemorial Health University Medical Center10/05/23Team MemberRelationshipSpecialtyStart Date End Date Dick Miranda MD [address] [place] [address] PCP - [facility]04/20/23 Montse Duran RN [address] [place] [address] Registered NurseMemorial Health University Medical Center10/05/23Team MemberRelationshipSpecialtyStart Date End Date Dick Miranda MD [address] [place] [address] PCP - GeneralFamily Medicine10/21/23 Lo Hancock MD [address] [place] [address] Hematology/Oncology11/04/23 Gerald Abdi MD [address] [place] [place] [address] Hematology/Oncology11/04/23 Olegario Moreira MD [address] [place] [address] 11/04/23 Lo Hancock MD [address] [place] [address] [place] [address] PhysicianHematology/Oncology11/14/23 Michelle Mejia, INSPECTOR HEATING AND REFRIGERATION.MAPPING SPECIALIST [address] [place] [address] [place] [address] Nurse PractitionerHematology/Oncology11/14/23 Noemy Chicas, EWELINA [address] [place] [address] Specialty Care CoordinatorHematology/Oncology11/14/23 Steffany Damian LSW Social Worker11/16/23 Joey Scott, INSPECTOR HEATING AND REFRIGERATION.MAPPING SPECIALIST [address] [place] [address] [place] [address] Hospice & Palliative Jpvshklc65/22/24 Anna Rasmussen RN Specialty Care CoordinatorHospice & Palliative Zudqwbqj40/22/24Team Member RelationshipSpecialtyStart DateEnd Date Dick Miranda MD [address] [place] [address] PCP - GeneralFamily Medicine10/21/23 Lo Hancock MD [address] [place] [address] [place] [address] Hematology/Oncology11/04/23 Gerald Abdi MD [address] [place] [address] [place] [address] Hematology/Oncology11/04/23 Olegario Moreira MD [address] [place] [address] 11/04/23 Lo Hancock MD [address] [place] [address] [place] [address] PhysicianHematology/Oncology11/14/23 Michelle Mejia, INSPECTOR HEATING AND REFRIGERATION.MAPPING SPECIALIST [address] [place] [address] [place] [address] Nurse PractitionerHematology/Oncology11/14/23 Noemy Chicas RN [address] [place] [address] Specialty Care CoordinatorHematology/Oncology11/14/23 Steffany Damian LSW Social Worker11/16/23 Joey Scott, INSPECTOR HEATING AND REFRIGERATION.MAPPING SPECIALIST [address] [place] [address] [place] [address] Hospice & Palliative Arandkzq68/22/24 Anna Rasmussen RN Specialty Care CoordinatorHospice & Palliative Nzljvsyr03/22/24Team Member RelationshipSpecialtyStart DateEnd Date Dick Miranda MD [address] [place] [address] PCP - GeneralFamily Medicine10/21/23 Lo Hancock MD [address] [place] [address] [place] [address] Hematology/Oncology11/04/23 Gerald Abdi MD [address] [place] [address] [address] [place], [place] [id number] Hematology/Oncology11/04/23 Olegario Moreira MD [address] [place] [address] [place] [address] 11/04/23 Lo Hancock MD [address] [place] [address] [address] [place], [facility]70 PhysicianHematology/Oncology11/14/23 Michelle Mejia, INSPECTOR HEATING AND REFRIGERATION.MAPPING SPECIALIST [address] [place] [address] [place] [address] Nurse PractitionerHematology/Oncology11/14/23 Noemy Chicas RN [address] [place] [address] [place] [address] Specialty Care CoordinatorHematology/Oncology11/14/23 Steffany Damian LSW Social Worker11/16/23 Joey Scott, INSPECTOR HEATING AND REFRIGERATION.MAPPING SPECIALIST [address] [place] [address] [place] [address] Hospice & Palliative Nwuscyzs77/22/24 Anna Rasmussen RN Specialty Care CoordinatorHospice & Palliative Ltdffmvo26/22/24Team Member RelationshipSpecialtyStart DateEnd Date Dick Miranda MD [address] [place] [address] PCP - GeneralFamily Medicine10/21/23 Lo Hancock MD [address] [place] [address] [place] [address] Hematology/Oncology11/04/23 Gerald Abdi MD [address] [place] [address] [place] [phone] Hematology/Oncology11/04/23 Olegario Moreira MD [address] [place] [address] [place] [address] 11/04/23 Lo Hancock MD [address] [place] [address] [place] [phone] PhysicianHematology/Oncology11/14/23 Michelle Mejia, INSPECTOR HEATING AND REFRIGERATION.MAPPING SPECIALIST [address] [place] [address] [place] [address] Nurse PractitionerHematology/Oncology11/14/23 Noemy Chicas RN [address] [place] [address] [address] [place] [phone] Specialty Care CoordinatorHematology/Oncology11/14/23 Steffany Damian LSW Social Worker11/16/23 Joey Scott, INSPECTOR HEATING AND REFRIGERATION.MAPPING SPECIALIST [address] [place] [address] [place] [address] Hospice & Palliative Iwxeerng97/22/24 Anna Rasmussen RN Specialty Care CoordinatorHospice & Palliative Fkzqozmb77/22/24Team Member RelationshipSpecialtyStart DateEnd Date Dick Miranda MD [address] [place] [address] PCP - GeneralFamily Medicine04/20/23 Montse Duran, EWELINA [address] [place] [address] Registered NurseFamily Medicine10/05/23Team MemberRelationshipSpecialtyStart Date End Date Dick Miranda MD [address] [place] [address] PCP - GeneralFamily Medicine10/21/23 Lo Hancock MD [address] [place] [address] Hematology/Oncology11/04/23 Gerald Abdi MD [address] [place] [address] Hematology/Oncology11/04/23 Olegario Moreira MD [address] [place] [address] [place] [address] 11/04/23 Lo Hancock MD [address] [place] [address] [place] [address] PhysicianHematology/Oncology11/14/23 Michelle Mejia, ROSA.MAPPING SPECIALIST [address] [place] [address] [place] [address] Nurse PractitionerHematology/Oncology11/14/23 Noemy Chicas RN [address] [place] [address] [place] [address] Specialty Care CoordinatorHematology/Oncology11/14/23 Steffany Damian LSW Social Worker11/16/23 Joey Scott, INSPECTOR HEATING AND REFRIGERATION.MAPPING SPECIALIST [address] [place] [address] Hospice & Palliative Anpllhgv26/22/24 Anna Rasmussen RN Specialty Care CoordinatorHospice & Palliative Gnrapguh63/22/24Team Member RelationshipSpecialtyStart DateEnd Date Dick Miranda MD [address] [place] [address] PCP - GeneralFamily Medicine10/21/23 Lo Hancock MD [address] [facility] [place] [address] Hematology/Oncology11/04/23 Gerald Abdi MD [address] [place] [address] Hematology/Oncology11/04/23 Olegario Moreira MD [address] [facility] [place] [address] 11/04/23 Lo Hancock MD [address] [place] [address] [place] [address] PhysicianHematology/Oncology11/14/23 Michelle Mejia, ROSA.MAPPING SPECIALIST [address] [place] [address] Nurse PractitionerHematology/Oncology11/14/23 Noemy Chicas, EWELINA [address] [place] [address] Specialty Care CoordinatorHematology/Oncology11/14/23 Steffany Damian LSW Social Worker11/16/23 Joey Scott, ROSA.MAPPING SPECIALIST [address] [place] [address] Hospice & Palliative Toutxlya65/22/24 Grady, Anna L, RN Specialty Care CoordinatorHospice & Palliative Ytruamjc87/22/24Team Member RelationshipSpecialtyStart DateEnd Date Dick Miranda MD [address] [place] [address] PCP - GeneralFamily Medicine10/21/23 Lo Hancock MD [address] [facility] [place] [address] Hematology/Oncology11/04/23 Gerald Abdi MD [address] [facility] [place] [address] Hematology/Oncology11/04/23 Olegario Moreira MD [address] [facility] [place] [address] 11/04/23 Lo Hancock MD [address] [place] [address] PhysicianHematology/Oncology11/14/23 Michelle Mejia, ROSA.MAPPING SPECIALIST [address] [place] [address] Nurse PractitionerHematology/Oncology11/14/23 Noemy Chicas, EWELINA [address] [facility] [place] [address] Specialty Care CoordinatorHematology/Oncology11/14/23 Steffany Damian LSW Social Worker11/16/23 Joey Scott, INSPECTOR HEATING AND REFRIGERATION.MAPPING SPECIALIST [address] [facility] [place] [address] Hospice & Palliative Ybibxscw54/22/24 Anna Rasmussen RN Specialty Care CoordinatorHospice & Palliative Qwbhcchl63/22/24Team Member RelationshipSpecialtyStart DateEnd Date Dick Miranda MD PCP - GeneralFamily Medicine09/27/23Team MemberRelationshipSpecialtyStart DateEnd Date Dick Miranda MD [address] [place] [address] PCP - GeneralFamily Medicine10/21/23 Lo Hancock MD [address] [facility] [place] [address] Hematology/Oncology11/04/23 Gerald Abdi MD [address] [facility] [address] [place], [facility]70 Hematology/Oncology11/04/23 Olegario Moreira MD [address] [facility] [address] [place], [facility]70 11/04/23 Lo Hancock MD [address] [facility] [address] [place], [facility]70 PhysicianHematology/Oncology11/14/23 Michelle Mejia, INSPECTOR HEATING AND REFRIGERATION.MAPPING SPECIALIST [address] [facility] [place] [address] Nurse PractitionerHematology/Oncology11/14/23 Noemy Chicas, EWELINA [address] [facility] [place] [address] Specialty Care CoordinatorHematology/Oncology11/14/23 Steffayn Damian LSW Social Worker11/16/23 Joey Scott APRN.MAPPING SPECIALIST [address] [place] [address] Hospice & Palliative Ddhyynqu22/22/24 Anna Rasmussen RN Specialty Care CoordinatorHospice & Palliative Ipnrlzbx14/22/24Team Member RelationshipSpecialtyStart DateEnd Date Dick Miranda MD [address] [place] [address] PCP - GeneralFamily Medicine10/21/23 Lo Hancock MD [address] [place] [address] [place] [address] Hematology/Oncology11/04/23 Gerald Abdi MD [address] [place] [address] [place] [address] Hematology/Oncology11/04/23 Olegario Moreira MD [address] [place] [address] [place] [address] 11/04/23 Lo Hancock MD [address] [place] [address] [place] [address] PhysicianHematology/Oncology11/14/23 Michelle Mejia APRN.MAPPING SPECIALIST [address] [place] [address] [place] [address] Nurse PractitionerHematology/Oncology11/14/23 Noemy Chicas, EWELINA [address] [place] [address] Specialty Care CoordinatorHematology/Oncology11/14/23 Steffany Damian LSW Social Worker11/16/23 Joey Scott, ROSA.MAPPING SPECIALIST [address] [place] [address] Hospice & Palliative Ljwyfpda62/22/24 Anna Rasmussen RN Specialty Care CoordinatorHospice & Palliative Verkhrvw59/22/24Team Member RelationshipSpecialtyStart DateEnd Date Dick Miranda MD [address] [place] [address] PCP - GeneralFamily Medicine04/20/23 Montse Duran, EWELINA [address] [place] [address] Registered NurseFamily Medicine10/05/23Team MemberRelationshipSpecialtyStart Date End Date Dick Miranda MD [address] [place] [address] PCP - GeneralFamily Medicine10/21/23 Lo Hancock MD [address] [place] [address] Hematology/Oncology11/04/23 Gerald Abdi MD [address] [place] [address] Hematology/Oncology11/04/23 Olegario Moreira MD [address] [facility] [address] 11/04/23 Lo Hancock MD [address] [place] [address] PhysicianHematology/Oncology11/14/23 Michelle Mejia, INSPECTOR HEATING AND REFRIGERATION.MAPPING SPECIALIST [address] [place] [address] Nurse PractitionerHematology/Oncology11/14/23 Noemy Chicas, EWELINA [address] [place] [address] Specialty Care CoordinatorHematology/Oncology11/14/23 Steffany Damian LSW Social Worker11/16/23 Joey Scott, INSPECTOR HEATING AND REFRIGERATION.MAPPING SPECIALIST [address] [place] [address] [place] [address] Hospice & Palliative Mtleiskg25/22/24 Anna Rasmussen RN Specialty Care CoordinatorHospice & Palliative Zylccuhq65/22/24Team Member RelationshipSpecialtyStart DateEnd Date Dick Miranda MD [address] [place] [phone] PCP - GeneralFamily Medicine04/20/23 [facility] [place] [address] Registered NurseFamily Medicine10/05/23Team MemberRelationshipSpecialtyStart Date End Date Dick Miranda MD [address] [place] [address] PCP - GeneralFamily Medicine04/20/23 Montse Duran RN [facility] [place] [address] Registered NurseFamily Medicine10/05/23Team MemberRelationshipSpecialtyStart Date End Date Dick Miranda MD [address] [place] [address] PCP - [facility]04/20/23 Montse Duran RN [address] [place] [address] Registered NurseMemorial [facility] University [facility]10/05/23Team MemberRelationshipSpecialtyStart Date End Date Dick Miranda MD [address] [place] [address] [facility] - [facility]04/20/23 Montse Duran RN [address] [place] [address] Registered NurseMemorial Health University Medical Center10/05/23Team MemberRelationshipSpecialtyStart Date End Date Dick Miranda MD [address] [place] [address] [facility]04/20/23 Montse Duran RN [address] [place] [address] Registered NurseMemorial Health University Medical Center10/05/23Team MemberRelationshipSpecialtyStart Date End Date Dick Miranda MD [address] [place] [address] [facility]04/20/23 Montse Duran RN [address] [place] [address] Registered NurseMemorial Health University Medical Center10/05/23Team MemberRelationshipSpecialtyStart Date End Date Dick Miranda MD [address] [place] [address] PCP - GeneralFamily Medicine10/21/23 Lo Hancock MD [address] [place] [address] Hematology/Oncology11/04/23 Gerald Abdi MD [address] [place] [address] [place] [address] Hematology/Oncology11/04/23 Olegario Moreira MD [address] [place] [address] [place] [address] 11/04/23 Lo Hancock MD [address] [place] [address] [place] [address] PhysicianHematology/Oncology11/14/23 Michelle Mejia, INSPECTOR HEATING AND REFRIGERATION.MAPPING SPECIALIST [address] [place] [address] [place] [address] Nurse PractitionerHematology/Oncology11/14/23 Noemy Chicas RN [address] [place] [address] [place] [address] Specialty Care CoordinatorHematology/Oncology11/14/23 Steffany Damian LSW Social Worker11/16/23 Joey Scott, INSPECTOR HEATING AND REFRIGERATION.MAPPING SPECIALIST [address] [place] [phone] Hospice & Palliative Xppddzau92/22/24 Anna Rasmussen RN Specialty Care CoordinatorHospice & Palliative Cqxgcydb35/22/24Team Member RelationshipSpecialtyStart DateEnd Date Dick Miranda MD [address] [place] [address] PCP - GeneralFamily Medicine10/21/23 Lo Hancock MD [address] [facility] [place] [address] Hematology/Oncology11/04/23 Gerald Abdi MD [address] [facility] [place] [address] Hematology/Oncology11/04/23 Olegario Moreira MD [address] [facility] [place] [address] 11/04/23 Lo Hancock MD [address] [facility] [place] [address] PhysicianHematology/Oncology11/14/23 Michelle Mejia, ROSA.MAPPING SPECIALIST [address] [place] [address] Nurse PractitionerHematology/Oncology11/14/23 Noemy Chicas, EWELINA [address] [facility] [place] [address] Specialty Care CoordinatorHematology/Oncology11/14/23 Steffany Damian LSW Social Worker11/16/23 Joey Scott, INSPECTOR HEATING AND REFRIGERATION.MAPPING SPECIALIST [address] [place] [address] Hospice & Palliative Rnzibstg18/22/24 Anna Rasmussen RN Specialty Care CoordinatorHospice & Palliative Bvqnfisg75/22/24Team Member RelationshipSpecialtyStart DateEnd Date Dick Miranda MD [address] [place] [address] PCP - Generalmily Medicine04/20/23Team MemberRelationshipSpecialtyStart DateEnd Date Dick Miranda MD [address] [place] [address] PCP - Generalmily Medicine04/20/23Team MemberRelationshipSpecialtyStart DateEnd Date Dick Miranda MD [address] [place] [address] PCP - GeneralH[facility] Hospitally Medicine04/20/23Team MemberRelationshipSpecialtyStart DateEnd Date Dick Miranda MD [address] [place] [address] P[facility] - [facility]Aust[facility] Medicine04/20/23Team MemberRelationshipSpecialtyStart DateEnd Date Dick Miranda MD PCP - Generalmily Medicine09/27/23Team MemberRelationshipSpecialtyStart DateEnd Date Dick Miranda MD PCP - Generalmily Medicine09/27/23Team MemberRelationshipSpecialtyStart DateEnd Date Dick Miranda MD [address] [place] [address] PCP - GeneralFamily Medicine04/20/23Team MemberRelationshipSpecialtyStart DateEnd Date Dick Miranda MD [address] [place] [address] PCP - GeneralFamily Medicine04/20/23Team MemberRelationshipSpecialtyStart DateEnd Date Dick Miranda MD [address] [place] [address] PCP - GeneralFamily Medicine04/20/23Team MemberRelationshipSpecialtyStart DateEnd Date Dick Miranda MD [address] [place] [address] PCP - Generalmily Medicine04/20/23Team MemberRelationshipSpecialtyStart DateEnd Date Dick Miranda MD PCP - GeneralFamily Medicine09/27/23Team MemberRelationshipSpecialtyStart DateEnd Date Dick Miranda MD [address] [place] [address] PCP - Generalmily Medicine04/20/23Team MemberRelationshipSpecialtyStart DateEnd Date Dick Miranda MD [address] [place] [address] PCP - GeneralFamily Medicine04/20/23Team MemberRelationshipSpecialtyStart DateEnd Date Dick Miranda MD [address] [place] [address] PCP - GeneralFamily Medicine04/20/23Team MemberRelationshipSpecialtyStart DateEnd Date Dick Miranda MD [address] [place] [address] PCP - GeneralFamily Medicine04/20/23Team MemberRelationshipSpecialtyStart DateEnd Date Dick Miranda MD [address] [place] [address] PCP - GeneralFamily Medicine10/21/23 Lo Hancock MD [address] [facility] [place] [address] Hematology/Oncology11/04/23 Gerald Abdi MD [address] [facility] [place] [address] Hematology/Oncology11/04/23 Olegario Moreira MD [address] [place] [address] 11/04/23 Lo Hancock MD [address] [place], [facility]70 PhysicianHematology/Oncology11/14/23 Michelle Mejia APRN.MAPPING SPECIALIST [address] [place] [address] Nurse PractitionerHematology/Oncology11/14/23 Noemy Chicas, EWELINA [address] [place] [address] Specialty Care CoordinatorHematology/Oncology11/14/23 Steffany Damian LSW Social Worker11/16/23 Joey Scott, INSPECTOR HEATING AND REFRIGERATION.MAPPING SPECIALIST [address] [place] [address] Hospice & Palliative Bvjhvppj78/22/24 Anna Rsamussen RN Specialty Care CoordinatorHospice & Palliative Whhlkzca04/22/24Team Member RelationshipSpecialtyStart DateEnd Date Dick Miranda MD [address] [place] [address] PCP - GeneralFamily Medicine10/21/23 Lo Hancock MD [address] [place] [address] [place] [address] Hematology/Oncology11/04/23 Gerald Abdi MD [address] [place] [address] [place] [address] Hematology/Oncology11/04/23 Olegario Moreira MD [address] [place] [address] 11/04/23 Lo Hancock MD [address] [place] [address] [place] [address] PhysicianHematology/Oncology11/14/23 Michelle Mejia, INSPECTOR HEATING AND REFRIGERATION.MAPPING SPECIALIST [address] [place] [address] Nurse PractitionerHematology/Oncology11/14/23 Noemy Chicas RN [address] [facility] [place] [address] Specialty Care CoordinatorHematology/Oncology11/14/23 Steffany Damian LSW Social Worker11/16/23 Joey Scott APRN.MAPPING SPECIALIST [address] [place] [address] [place] [address] Hospice & Palliative Sklktyqp51/22/24 Anna Rasmussen RN Specialty Care CoordinatorHospice & Palliative Irmtgzje07/22/24 Team Status: Active Member Role Status Dates Dick Miranda MD Primary Care Provider Active Team Status: Active Member Role Status Dates Basia Vega MD Primary Care Provider Active Start: August 31, 2024 Melinda Doss DISH MACHINE OPERATOR-CAttending ProviderActiveStart: August 31, 2024 Team Status: Active [...] Dick Miranda MD [address] [place] [address] PCP - GeneralFamily Medicine10/21/23 Lo Hancock MD [address] [place] [address] [place] [address] Hematology/Oncology11/04/23 Gerald Abdi MD [address] [place] [address] [address] [place] [phone] Hematology/Oncology11/04/23 Olegario Moreira MD [address] [place] [address] [address] [place] [phone] 11/04/23 Lo Hancock MD [address] [place] [address] [address] [place] [phone] PhysicianHematology/Oncology11/14/23 Michelle Mejia, INSPECTOR HEATING AND REFRIGERATION.MAPPING SPECIALIST [address] [place] [address] [address] [place] [phone] Nurse PractitionerHematology/Oncology11/14/23 Noemy Chicas RN [address] [place] [address] [place] [address] Specialty Care CoordinatorHematology/Oncology11/14/23 Steffany Damian LSW Social Worker11/16/23 Joey Scott, INSPECTOR HEATING AND REFRIGERATION.MAPPING SPECIALIST [address] [place] [address] [place] [address] Hospice & Palliative Uugxnewp40/22/24 Anna Rasmussen RN Specialty Care CoordinatorHospice & Palliative Ghnlhrkq12/22/24Team Member RelationshipSpecialtyStart DateEnd Date Dick Miranda MD [address] [place] [address] PCP - GeneralFamily Medicine10/21/23 Lo Hancock MD [address] [place] [address] [place] [address] Hematology/Oncology11/04/23 Gerald Abdi MD [address] [place] [address] [place] [address] Hematology/Oncology11/04/23 Olegario Moreira MD [address] [place] [address] [place] [address] 11/04/23 Lo Hancock MD [address] [place] [address] [place] [address] PhysicianHematology/Oncology11/14/23 Michelle Mejia, INSPECTOR HEATING AND REFRIGERATION.MAPPING SPECIALIST [address] [place] [address] [place] [address] Nurse PractitionerHematology/Oncology11/14/23 Noemy Chicas RN [address] [place] [address] [place] [address] Specialty Care CoordinatorHematology/Oncology11/14/23 Steffany Damian LSW Social Worker11/16/23 Joey Scott, INSPECTOR HEATING AND REFRIGERATION.MAPPING SPECIALIST [address] [place] [address] [place] [address] Hospice & Palliative Bsmxxnkz78/22/24 Anna Rasmussen RN Specialty Care CoordinatorHospice & Palliative Zvzacngj31/22/24Team Member RelationshipSpecialtyStart DateEnd Date Dick Miranda MD [address] [place] [address] PCP - GeneralFamily Medicine10/21/23 Lo Hancock MD [address] [place] [address] Hematology/Oncology11/04/23 Gerald Abdi MD [address] [place] [address] Hematology/Oncology11/04/23 Olegario Moreira MD [address] [place] [address] 11/04/23 Lo Hancock MD [address] [place] [address] [place] [address] PhysicianHematology/Oncology11/14/23 Michelle Mejia, INSPECTOR HEATING AND REFRIGERATION.MAPPING SPECIALIST [address] [place] [address] [place] [address] Nurse PractitionerHematology/Oncology11/14/23 Noemy Chicas, EWELINA [address] [place] [address] [place] [address] Specialty Care CoordinatorHematology/Oncology11/14/23 Steffany Damian LSW Social Worker11/16/23 Joey Scott, INSPECTOR HEATING AND REFRIGERATION.MAPPING SPECIALIST [address] [place] [address] Hospice & Palliative Ondmmdav16/22/24 Anna Rasmussen RN Specialty Care CoordinatorHospice & Palliative Xyqjdsxh28/22/24Team Member RelationshipSpecialtyStart DateEnd Date Dick Miranda MD [address] [place] [address] PCP - GeneralFamily Medicine10/21/23 Lo Hancock MD [address] [place] [address] Hematology/Oncology11/04/23 Gerald Abdi MD [address] [place] [address] Hematology/Oncology11/04/23 Olegario Moreira MD [address] [place] [address] 11/04/23 Lo Hancock MD [address] [place] [address] [place] [address] PhysicianHematology/Oncology11/14/23 Michelle Mejia, INSPECTOR HEATING AND REFRIGERATION.MAPPING SPECIALIST [address] [place] [address] Nurse PractitionerHematology/Oncology11/14/23 Noemy Chicas, EWELINA [address] [place] [address] Specialty Care CoordinatorHematology/Oncology11/14/23 Steffany Damian LSW Social Worker11/16/23 Joey Scott, INSPECTOR HEATING AND REFRIGERATION.MAPPING SPECIALIST [address] [place] [address] Hospice & Palliative Heuuddcy62/22/24 Anna Rasmussen RN Specialty Care CoordinatorHospice & Palliative Frzdvekt67/22/24Team Member RelationshipSpecialtyStart DateEnd Date Dick Miranda MD [address] [place] [address] PCP - GeneralFamily Medicine10/21/23 Lo Hancock MD [address] [place] [address] Hematology/Oncology11/04/23 Gerald Abdi MD [address] [place], [facility] Hematology/Oncology11/04/23 Olegario Moreira MD [address] [place], [facility] 11/04/23 Lo Hancock MD [address] [place] [address] [address] [place], [facility]70 PhysicianHematology/Oncology11/14/23 Michelle Mejia, ROSA.MAPPING SPECIALIST [address] [place] [address] [place] [address] Nurse PractitionerHematology/Oncology11/14/23 Noemy Chicas, EWELINA [address] [place] [address] Specialty Care CoordinatorHematology/Oncology11/14/23 Steffany Damian LSW Social Worker11/16/23 Joey Scott, INSPECTOR HEATING AND REFRIGERATION.MAPPING SPECIALIST [address] [place] [address] Hospice & Palliative Katzrknw12/22/24 Anna Rasmussen RN Specialty Care CoordinatorHospice & Palliative Ogcopmyu12/22/24 Team Status: Active Member Role Status Dates Dick Miranda MD Primary Care Provider Active S tart: November 09, 2024 Lo V Abhyankar , MDAttending ProviderActiveStart: November 09, 2024 Team Status: Inactive Member Role Status Dates Dick Miranda MD Primary Care Provider Active S tart: November 21, 2024 End: November 21, 2024[facility] , MDAttending ProviderActiveStart: November 21, 2024 End: November 21, 2024 Team Status: Active Member Role Status Dates Dick Miranda MD Primary Care Provider Active S tart: November 23, 2024 Lo V Abhyankar , MDAttending ProviderActiveStart: November 23, 2024 Team Status: Active Member Role Status Dates Dick Miranda MD Primary Care Provider Active S tart: December 07, 2024 Lo V Abhyankar , MDAttending ProviderActiveStart: December 07, 2024 Team Status: Inactive Member Role Status Dates Dick Miranda MD Primary Care Provider Active S tart: December 10, 2024 End: December 10, 2024[facility] Miranda MDAttending ProviderActiveStart: December 10, 2024 End: December 10, 2024Team MemberRelationshipSpecialtyStart DateEnd Date Dick Miranda MD PCP - GeneralFamily Medicine04/20/23 Nakia Montez DO [address] [id number] PCP - [place] 12/06/2411 Dick Miranda MD [address] [place] [address] PCP - [place] Montse Duran, RN [address] [place] [address] Registered NurseFamily MedicineTeam MemberRelationshipSpecialty Start DateEnd Date Dick Miranda MD PCP - GeneralFamily Medicine04/20/23 JasenNakia DO [address] [facility] [address] [place] [address] PCP - [place]12/06/2411 Dick Miranda MD [address] [place] [address] PCP - [place] Montse Duran, RN [address] [place] [address] Registered NurseFamily Medicine Source Comments (unrecognize d section and content) In the event this informatio n is protected by the Federal Confidentiality of Alcohol and Drug Abuse Patient Records regulations: The Federal rules restrict any use of the information to criminally investigate or prosecute any alcohol or drug abuse patient.[facility] CenterIn the event this information is protected by the Federal Confidentiality of Alcohol and Drug Abuse Patient Records regulations: The Federal rules restrict any use of the information to criminally investigate or prosecute any alcohol or drug abuse patient.[facility] CenterIn the event this information is protected by the Federal Confidentiality of Alcohol and Drug Abuse Patient Records regulations: The Federal rules restrict any use of the information to criminally investigate or prosecute any alcohol or drug abuse patient.[facility] CenterIn the event this information is protected by the Federal Confidentiality of Alcohol and Drug Abuse Patient Records regulations: The Federal rules restrict any use of the information to criminally investigate or prosecute any alcohol or drug abuse patient.[facility] CenterIn the event this information is protected by the Federal Confidentiality of Alcohol and Drug Abuse Patient Records regulations: The Federal rules restrict any use of the information to criminally investigate or prosecute any alcohol or drug abuse patient.[facility] CenterIn the event this information is protected by the Federal Confidentiality of Alcohol and Drug Abuse Patient Records regulations: The Federal rules restrict any use of the information to criminally investigate or prosecute any alcohol or drug abuse patient.[facility] CenterIn the event this information is protected by the Federal Confidentiality of Alcohol and Drug Abuse Patient Records regulations: The Federal rules restrict any use of the information to criminally investigate or prosecute any alcohol or drug abuse patient.[facility] CenterIn the event this information is protected by the Federal Confidentiality of Alcohol and Drug Abuse Patient Records regulations: The Federal rules restrict any use of the information to criminally investigate or prosecute any alcohol or drug abuse patient.[facility] CenterIn the event this information is protected by the Federal Confidentiality of Alcohol and Drug Abuse Patient Records regulations: The Federal rules restrict any use of the information to criminally investigate or prosecute any alcohol or drug abuse patient.[facility] CenterIn the event this information is protected by the Federal Confidentiality of Alcohol and Drug Abuse Patient Records regulations: The Federal rules restrict any use of the information to criminally investigate or prosecute any alcohol or drug abuse patient.[facility] CenterIn the event this information is protected by the Federal Confidentiality of Alcohol and Drug Abuse Patient Records regulations: The Federal rules restrict any use of the information to criminally investigate or prosecute any alcohol or drug abuse patient.[facility] CenterIn the event this information is protected by the Federal Confidentiality of Alcohol and Drug Abuse Patient Records regulations: The Federal rules restrict any use of the information to criminally investigate or prosecute any alcohol or drug abuse patient.[facility] CenterIn the event this information is protected by the Federal Confidentiality of Alcohol and Drug Abuse Patient Records regulations: The Federal rules restrict any use of the information to criminally investigate or prosecute any alcohol or drug abuse patient.[facility] CenterIn the event this information is protected by the Federal Confidentiality of Alcohol and Drug Abuse Patient Records regulations: The Federal rules restrict any use of the information to criminally investigate or prosecute any alcohol or drug abuse patient.[facility] CenterIn the event this information is protected by the Federal Confidentiality of Alcohol and Drug Abuse Patient Records regulations: The Federal rules restrict any use of the information to criminally investigate or prosecute any alcohol or drug abuse patient.[facility] CenterIn the event this information is protected by the Federal Confidentiality of Alcohol and Drug Abuse Patient Records regulations: The Federal rules restrict any use of the information to criminally investigate or prosecute any alcohol or drug abuse patient.[facility] CenterIn the event this information is protected by the Federal Confidentiality of Alcohol and Drug Abuse Patient Records regulations: The Federal rules restrict any use of the information to criminally investigate or prosecute any alcohol or drug abuse patient.[facility] CenterIn the event this information is protected by the Federal Confidentiality of Alcohol and Drug Abuse Patient Records regulations: The Federal rules restrict any use of the information to criminally investigate or prosecute any alcohol or drug abuse patient.[facility] CenterIn the event this information is protected by the Federal Confidentiality of Alcohol and Drug Abuse Patient Records regulations: The Federal rules restrict any use of the information to criminally investigate or prosecute any alcohol or drug abuse patient.[facility] CenterIn the event this information is protected by the Federal Confidentiality of Alcohol and Drug Abuse Patient Records regulations: The Federal rules restrict any use of the information to criminally investigate or prosecute any alcohol or drug abuse patient.[facility] CenterIn the event this information is protected by the Federal Confidentiality of Alcohol and Drug Abuse Patient Records regulations: The Federal rules restrict any use of the information to criminally investigate or prosecute any alcohol or drug abuse patient.[facility] CenterIn the event this information is protected by the Federal Confidentiality of Alcohol and Drug Abuse Patient Records regulations: The Federal rules restrict any use of the information to criminally investigate or prosecute any alcohol or drug abuse patient.[facility] CenterIn the event this information is protected by the Federal Confidentiality of Alcohol and Drug Abuse Patient Records regulations: The Federal rules restrict any use of the information to criminally investigate or prosecute any alcohol or drug abuse patient.[facility] CenterIn the event this information is protected by the Federal Confidentiality of Alcohol and Drug Abuse Patient Records regulations: The Federal rules restrict any use of the information to criminally investigate or prosecute any alcohol or drug abuse patient.[facility] CenterIn the event this information is protected by the Federal Confidentiality of Alcohol and Drug Abuse Patient Records regulations: The Federal rules restrict any use of the information to criminally investigate or prosecute any alcohol or drug abuse patient.[facility] CenterIn the event this information is protected by the Federal Confidentiality of Alcohol and Drug Abuse Patient Records regulations: The Federal rules restrict any use of the information to criminally investigate or prosecute any alcohol or drug abuse patient.[facility] CenterIn the event this information is protected by the Federal Confidentiality of Alcohol and Drug Abuse Patient Records regulations: The Federal rules restrict any use of the information to criminally investigate or prosecute any alcohol or drug abuse patient.[facility] CenterIn the event this information is protected by the Federal Confidentiality of Alcohol and Drug Abuse Patient Records regulations: The Federal rules restrict any use of the information to criminally investigate or prosecute any alcohol or drug abuse patient.[facility] CenterIn the event this information is protected by the Federal Confidentiality of Alcohol and Drug Abuse Patient Records regulations: The Federal rules restrict any use of the information to criminally investigate or prosecute any alcohol or drug abuse patient.[facility] CenterIn the event this information is protected by the Federal Confidentiality of Alcohol and Drug Abuse Patient Records regulations: The Federal rules restrict any use of the information to criminally investigate or prosecute any alcohol or drug abuse patient.[facility] CenterIn the event this information is protected by the Federal Confidentiality of Alcohol and Drug Abuse Patient Records regulations: The Federal rules restrict any use of the information to criminally investigate or prosecute any alcohol or drug abuse patient.[facility] CenterIn the event this information is protected by the Federal Confidentiality of Alcohol and Drug Abuse Patient Records regulations: The Federal rules restrict any use of the information to criminally investigate or prosecute any alcohol or drug abuse patient.[facility] CenterIn the event this information is protected by the Federal Confidentiality of Alcohol and Drug Abuse Patient Records regulations: The Federal rules restrict any use of the information to criminally investigate or prosecute any alcohol or drug abuse patient.[facility] CenterIn the event this information is protected by the Federal Confidentiality of Alcohol and Drug Abuse Patient Records regulations: The Federal rules restrict any use of the information to criminally investigate or prosecute any alcohol or drug abuse patient.[facility] CenterIn the event this information is protected by the Federal Confidentiality of Alcohol and Drug Abuse Patient Records regulations: The Federal rules restrict any use of the information to criminally investigate or prosecute any alcohol or drug abuse patient.[facility] CenterIn the event this information is protected by the Federal Confidentiality of Alcohol and Drug Abuse Patient Records regulations: The Federal rules restrict any use of the information to criminally investigate or prosecute any alcohol or drug abuse patient.[facility] CenterIn the event this information is protected by the Federal Confidentiality of Alcohol and Drug Abuse Patient Records regulations: The Federal rules restrict any use of the information to criminally investigate or prosecute any alcohol or drug abuse patient.[facility] CenterIn the event this information is protected by the Federal Confidentiality of Alcohol and Drug Abuse Patient Records regulations: The Federal rules restrict any use of the information to criminally investigate or prosecute any alcohol or drug abuse patient.[facility] CenterIn the event this information is protected by the Federal Confidentiality of Alcohol and Drug Abuse Patient Records regulations: The Federal rules restrict any use of the information to criminally investigate or prosecute any alcohol or drug abuse patient.[facility] CenterIn the event this information is protected by the Federal Confidentiality of Alcohol and Drug Abuse Patient Records regulations: The Federal rules restrict any use of the information to criminally investigate or prosecute any alcohol or drug abuse patient.[facility] CenterIn the event this information is protected by the Federal Confidentiality of Alcohol and Drug Abuse Patient Records regulations: The Federal rules restrict any use of the information to criminally investigate or prosecute any alcohol or drug abuse patient.[facility] CenterIn the event this information is protected by the Federal Confidentiality of Alcohol and Drug Abuse Patient Records regulations: The Federal rules restrict any use of the information to criminally investigate or prosecute any alcohol or drug abuse patient.[facility] CenterIn the event this information is protected by the Federal Confidentiality of Alcohol and Drug Abuse Patient Records regulations: The Federal rules restrict any use of the information to criminally investigate or prosecute any alcohol or drug abuse patient.[facility] CenterIn the event this information is protected by the Federal Confidentiality of Alcohol and Drug Abuse Patient Records regulations: The Federal rules restrict any use of the information to criminally investigate or prosecute any alcohol or drug abuse patient.[facility] CenterIn the event this information is protected by the Federal Confidentiality of Alcohol and Drug Abuse Patient Records regulations: The Federal rules restrict any use of the information to criminally investigate or prosecute any alcohol or drug abuse patient.[facility] CenterIn the event this information is protected by the Federal Confidentiality of Alcohol and Drug Abuse Patient Records regulations: The Federal rules restrict any use of the information to criminally investigate or prosecute any alcohol or drug abuse patient.[facility] CenterIn the event this information is protected by the Federal Confidentiality of Alcohol and Drug Abuse Patient Records regulations: The Federal rules restrict any use of the information to criminally investigate or prosecute any alcohol or drug abuse patient.[facility] CenterIn the event this information is protected by the Federal Confidentiality of Alcohol and Drug Abuse Patient Records regulations: The Federal rules restrict any use of the information to criminally investigate or prosecute any alcohol or drug abuse patient.[facility] CenterIn the event this information is protected by the Federal Confidentiality of Alcohol and Drug Abuse Patient Records regulations: The Federal rules restrict any use of the information to criminally investigate or prosecute any alcohol or drug abuse patient.[facility] CenterIn the event this information is protected by the Federal Confidentiality of Alcohol and Drug Abuse Patient Records regulations: The Federal rules restrict any use of the information to criminally investigate or prosecute any alcohol or drug abuse patient.[facility] CenterIn the event this information is protected by the Federal Confidentiality of Alcohol and Drug Abuse Patient Records regulations: The Federal rules restrict any use of the information to criminally investigate or prosecute any alcohol or drug abuse patient.[facility] CenterIn the event this information is protected by the Federal Confidentiality of Alcohol and Drug Abuse Patient Records regulations: The Federal rules restrict any use of the information to criminally investigate or prosecute any alcohol or drug abuse patient.[facility] CenterIn the event this information is protected by the Federal Confidentiality of Alcohol and Drug Abuse Patient Records regulations: The Federal rules restrict any use of the information to criminally investigate or prosecute any alcohol or drug abuse patient.[facility] CenterIn the event this information is protected by the Federal Confidentiality of Alcohol and Drug Abuse Patient Records regulations: The Federal rules restrict any use of the information to criminally investigate or prosecute any alcohol or drug abuse patient.[facility] CenterIn the event this information is protected by the Federal Confidentiality of Alcohol and Drug Abuse Patient Records regulations: The Federal rules restrict any use of the information to criminally investigate or prosecute any alcohol or drug abuse patient.[facility] CenterIn the event this information is protected by the Federal Confidentiality of Alcohol and Drug Abuse Patient Records regulations: The Federal rules restrict any use of the information to criminally investigate or prosecute any alcohol or drug abuse patient.[facility] CenterIn the event this information is protected by the Federal Confidentiality of Alcohol and Drug Abuse Patient Records regulations: The Federal rules restrict any use of the information to criminally investigate or prosecute any alcohol or drug abuse patient.[facility] CenterIn the event this information is protected by the Federal Confidentiality of Alcohol and Drug Abuse Patient Records regulations: The Federal rules restrict any use of the information to criminally investigate or prosecute any alcohol or drug abuse patient.[facility] CenterIn the event this information is protected by the Federal Confidentiality of Alcohol and Drug Abuse Patient Records regulations: The Federal rules restrict any use of the information to criminally investigate or prosecute any alcohol or drug abuse patient.[facility] CenterIn the event this information is protected by the Federal Confidentiality of Alcohol and Drug Abuse Patient Records regulations: The Federal rules restrict any use of the information to criminally investigate or prosecute any alcohol or drug abuse patient.[facility] CenterIn the event this information is protected by the Federal Confidentiality of Alcohol and Drug Abuse Patient Records regulations: The Federal rules restrict any use of the information to criminally investigate or prosecute any alcohol or drug abuse patient.[facility] CenterIn the event this information is protected by the Federal Confidentiality of Alcohol and Drug Abuse Patient Records regulations: The Federal rules restrict any use of the information to criminally investigate or prosecute any alcohol or drug abuse patient.[facility] CenterIn the event this information is protected by the Federal Confidentiality of Alcohol and Drug Abuse Patient Records regulations: The Federal rules restrict any use of the information to criminally investigate or prosecute any alcohol or drug abuse patient.[facility] CenterIn the event this information is protected by the Federal Confidentiality of Alcohol and Drug Abuse Patient Records regulations: The Federal rules restrict any use of the information to criminally investigate or prosecute any alcohol or drug abuse patient.[facility] CenterIn the event this information is protected by the Federal Confidentiality of Alcohol and Drug Abuse Patient Records regulations: The Federal rules restrict any use of the information to criminally investigate or prosecute any alcohol or drug abuse patient.[facility] CenterIn the event this information is protected by the Federal Confidentiality of Alcohol and Drug Abuse Patient Records regulations: The Federal rules restrict any use of the information to criminally investigate or prosecute any alcohol or drug abuse patient.[facility] CenterIn the event this information is protected by the Federal Confidentiality of Alcohol and Drug Abuse Patient Records regulations: The Federal rules restrict any use of the information to criminally investigate or prosecute any alcohol or drug abuse patient.[facility] CenterIn the event this information is protected by the Federal Confidentiality of Alcohol and Drug Abuse Patient Records regulations: The Federal rules restrict any use of the information to criminally investigate or prosecute any alcohol or drug abuse patient.[facility] CenterIn the event this information is protected by the Federal Confidentiality of Alcohol and Drug Abuse Patient Records regulations: The Federal rules restrict any use of the information to criminally investigate or prosecute any alcohol or drug abuse patient.[facility] CenterIn the event this information is protected by the Federal Confidentiality of Alcohol and Drug Abuse Patient Records regulations: The Federal rules restrict any use of the information to criminally investigate or prosecute any alcohol or drug abuse patient.[facility] CenterIn the event this information is protected by the Federal Confidentiality of Alcohol and Drug Abuse Patient Records regulations: The Federal rules restrict any use of the information to criminally investigate or prosecute any alcohol or drug abuse patient.[facility] CenterIn the event this information is protected by the Federal Confidentiality of Alcohol and Drug Abuse Patient Records regulations: The Federal rules restrict any use of the information to criminally investigate or prosecute any alcohol or drug abuse patient.[facility] CenterIn the event this information is protected by the Federal Confidentiality of Alcohol and Drug Abuse Patient Records regulations: The Federal rules restrict any use of the information to criminally investigate or prosecute any alcohol or drug abuse patient.[facility] CenterIn the event this information is protected by the Federal Confidentiality of Alcohol and Drug Abuse Patient Records regulations: The Federal rules restrict any use of the information to criminally investigate or prosecute any alcohol or drug abuse patient.[facility] CenterIn the event this information is protected by the Federal Confidentiality of Alcohol and Drug Abuse Patient Records regulations: The Federal rules restrict any use of the information to criminally investigate or prosecute any alcohol or drug abuse patient.[facility] CenterIn the event this information is protected by the Federal Confidentiality of Alcohol and Drug Abuse Patient Records regulations: The Federal rules restrict any use of the information to criminally investigate or prosecute any alcohol or drug abuse patient.[facility] CenterIn the event this information is protected by the Federal Confidentiality of Alcohol and Drug Abuse Patient Records regulations: The Federal rules restrict any use of the information to criminally investigate or prosecute any alcohol or drug abuse patient.[facility] CenterIn the event this information is protected by the Federal Confidentiality of Alcohol and Drug Abuse Patient Records regulations: The Federal rules restrict any use of the information to criminally investigate or prosecute any alcohol or drug abuse patient.[facility] CenterIn the event this information is protected by the Federal Confidentiality of Alcohol and Drug Abuse Patient Records regulations: The Federal rules restrict any use of the information to criminally investigate or prosecute any alcohol or drug abuse patient.[facility] CenterIn the event this information is protected by the Federal Confidentiality of Alcohol and Drug Abuse Patient Records regulations: The Federal rules restrict any use of the information to criminally investigate or prosecute any alcohol or drug abuse patient.[facility] CenterIn the event this information is protected by the Federal Confidentiality of Alcohol and Drug Abuse Patient Records regulations: The Federal rules restrict any use of the information to criminally investigate or prosecute any alcohol or drug abuse patient.[facility] CenterIn the event this information is protected by the Federal Confidentiality of Alcohol and Drug Abuse Patient Records regulations: The Federal rules restrict any use of the information to criminally investigate or prosecute any alcohol or drug abuse patient.[facility] CenterIn the event this information is protected by the Federal Confidentiality of Alcohol and Drug Abuse Patient Records regulations: The Federal rules restrict any use of the information to criminally investigate or prosecute any alcohol or drug abuse patient.[facility] CenterIn the event this information is protected by the Federal Confidentiality of Alcohol and Drug Abuse Patient Records regulations: The Federal rules restrict any use of the information to criminally investigate or prosecute any alcohol or drug abuse patient.[facility] CenterIn the event this information is protected by the Federal Confidentiality of Alcohol and Drug Abuse Patient Records regulations: The Federal rules restrict any use of the information to criminally investigate or prosecute any alcohol or drug abuse patient.[facility] CenterIn the event this information is protected by the Federal Confidentiality of Alcohol and Drug Abuse Patient Records regulations: The Federal rules restrict any use of the information to criminally investigate or prosecute any alcohol or drug abuse patient.[facility] CenterIn the event this information is protected by the Federal Confidentiality of Alcohol and Drug Abuse Patient Records regulations: The Federal rules restrict any use of the information to criminally investigate or prosecute any alcohol or drug abuse patient.[facility] CenterIn the event this information is protected by the Federal Confidentiality of Alcohol and Drug Abuse Patient Records regulations: The Federal rules restrict any use of the information to criminally investigate or prosecute any alcohol or drug abuse patient.[facility] CenterIn the event this information is protected by the Federal Confidentiality of Alcohol and Drug Abuse Patient Records regulations: The Federal rules restrict any use of the information to criminally investigate or prosecute any alcohol or drug abuse patient.[facility] CenterIn the event this information is protected by the Federal Confidentiality of Alcohol and Drug Abuse Patient Records regulations: The Federal rules restrict any use of the information to criminally investigate or prosecute any alcohol or drug abuse patient.[facility] CenterIn the event this information is protected by the Federal Confidentiality of Alcohol and Drug Abuse Patient Records regulations: The Federal rules restrict any use of the information to criminally investigate or prosecute any alcohol or drug abuse patient.[facility] Goals (unrecognized section and content) Goals may [...] BE BASED ON THE PRIMARY CLINICAL RECORDS. [employer] [facility]. provides no warranty or guarantee of the accuracy or completeness of information in this document.
--- NOTE | 2025-01-17 14:41 | PM.CN ---
Consult Note: HPI Data of Consult Patient: known to practice within the last 3 years Consult date: 01/17/25 Requesting Physician: Sandra Vergara NP Primary Care Provider: Dick Boss MD Consult Narrative Reason for consult: left chest pain Narrative: 69yom who presents for evaluation. history of left chest pain that began after radiation treatment for lung mass. notes persistence of burning in left anterior chest. current uses norco, pregabalin, steroid. denies adverse med side effects. has continued in a series of provider directed home exercises >6 weeks, without lasting benefit. recently underwent left T7,8,9 intercostal nerve block with at least 80% improvement in pain for 4 days. cc:: CC: Sandra Vergara NP Review of Systems ROS Status of ROS 10 or more systems reviewed and unremarkable except as noted in history and below Meds Home Medications and Allergies Home Medications ?Medication ?Instructions ?Recorded ?Confirmed ?Type albuterol sulfate 90 mcg/actuation 2 puff inhalation Q4H PRN 07/31/23 01/07/25 History aerosol inhaler shortness of breath or wheezing atorvastatin 40 mg tablet 40 mg PO DAILY 07/31/23 01/07/25 History hydrocodone 7.5 mg-acetaminophen 1 tab PO Q6H PRN pain 07/31/23 01/07/25 History 325 mg tablet levothyroxine 175 mcg tablet 175 mcg PO QAM 07/31/23 01/07/25 History (Synthroid) amlodipine 10 mg tablet 10 mg PO DAILY 12/31/24 01/07/25 History ascorbic acid (vitamin C) 500 mg mg PO 12/31/24 History capsule aspirin 81 mg tablet 81 mg PO DAILY 12/31/24 01/07/25 History diazepam 5 mg tablet 5 mg PO TID PRN anxiety 12/31/24 01/07/25 History docusate sodium 100 mg capsule 100 mg PO BID 12/31/24 01/07/25 History krill oil 500 mg capsule mg PO 12/31/24 History metformin 850 mg tablet 850 mg PO DAILY 12/31/24 01/07/25 History multivit with minerals-folic tab PO 12/31/24 History acid-lycopene 0.4 mg-600 mcg tablet prednisone 10 mg tablet 10 mg PO DAILY 12/31/24 01/07/25 History pregabalin 75 mg capsule (Lyrica) 75 mg PO BID 12/31/24 01/07/25 History ramelteon 8 mg tablet (Rozerem) mg PO 12/31/24 History semaglutide 0.25 mg or 0.5 mg (2 0.25 mg subcut QWEEK 12/31/24 01/07/25 History mg/3 mL) subcutaneous pen injector (Ozempic) sildenafil 100 mg tablet 100 mg PO DAILY PRN sexual activity 12/31/24 01/07/25 History clopidogrel 75 mg tablet 75 mg PO DAILY 01/07/25 01/07/25 History Allergies Allergy/AdvReac Type Severity Reaction Status Date / Time Sulfa (Sulfonamide Allergy Mild Rash Verified 01/07/25 09:12 Antibiotics) Exam Narrative Exam Narrative: Psych-alert and oriented x 3. Attentive and appropriate, constitutionally normal, displays normal mood and affect per situation. There are no obvious deficits in memory, reasoning, or intellect.? Skin-no obvious rashes, bruising, erythema noted to the patient's area of pain.? Extremities- extremities are warm with minimal edema and palpable pulses. Thoracic-tenderness to palpation noted in the thoracic spine and paraspinal musculature. Sensory-no notable sensory deficits to touch or pinprick in all dermatomal distributions with the exception to decreased sensation to the left T7, 8, 9, 10 dermatomal distribution Coordination remains intact.? Gait remains non-antalgic. Assessment and Plan Assessment and Plan (1) Intercostal neuralgia: (2) Thoracic stenosis: Plan 69yom who presents for evaluation. failed conservative measures, as noted. given history and worsening symptoms, coupled with lack of response to more conservative measures, will order left t7, 8, 9 intercostal nerve RFA. f/u 1 month after RFA
== END 2025-01-17 14:09 | disposition home or self-care (01) ==
LOC: PM 14:08
PROVIDERS: PCP Family Medicine; Visit Provider Nurse Practitioner
DX: G58.0 Intercostal neuropathy (principal); M48.04 Spinal stenosis, thoracic region
CPT/HCPCS: G0463

== ENCOUNTER 2025-01-28 10:43 | Day surgery (SDC) | payer MEDICARE, SELFPAY ==
--- OUTSIDE RECORDS SUMMARY | 2025-01-28 10:47 | XMS_ITS | Clinical Summary ---
Author Organization [facility] Address [address] [place] [address] Care Team Providers Care Stitching Machine Setter Name Role Phone Dick Boss MD Primary Care Provider [phone] Allergies Active AllergyReactionsCriticalityNoted CpdbUvmcxrxkRmpemoiluvXvtup38/24/2024 Tiotropium BromideShortness of pqohnuYjbg79/20/2024 Pt reported having increased shortness of breath after trying med 1 time. Sulfa AntibioticsUnknown,XcycZjol06/10/2012 Unkown, was a child Medications MedicationSigDispense QuantityRefillsLast FilledStart DateEnd DateStatus propranolol (Inderal) 20 MG tablet TAKE 1 TABLET BY MOUTH NEEDED FOR ANXIETY ATTACKS ONCE A DAY12/25/2021ctive ascorbic acid (Vitamin C) 500 MG tablet Take 500 mg by mouth in the morning.Active aspirin 81 MG EC tablet Take 81 mg by mouth in the morning.Active Krill Oil ([place]-3) 500 MG capsule Take by mouth.Active Multiple Vitamin (Multi-Vitamin) tablet Take 1 tablet by mouth in the morning.Active sildenafil (Viagra) 100 MG tablet Indications:Erectile dysfunction, unspecified erectile dysfunction typeTake 1 tablet (100 mg) by mouth Daily as needed for erectile dysfunction. 10 tablet ctive albuterol HFA 90 mcg/act inhaler Inhale 2 puffs every 6 (six) hours if skolrb6010/20/2023ctive omeprazole OTC (PriLOSEC OTC) 20 MG EC [...] capsule 5Active Active Problems ProblemNoted DateDiagnosed DateSeborrheic /12/2025Medicare annual wellness visit, tscrfehxrx07/12/2025 Assessment & Plan (04/18/2024 10:42 AM EST): Reviewed labs. Discussed proper diet and regular aerobic exercise. Need aerobic exercise 5-6 days aweek for 30 minutes at a time. Smaller portions and limit total calories. Colonoscopy every 10 years. Tetanus every 10 years. Advised not to smoke. Encounter for long-term (current) use of hrcohobegil37/12/2024hemotherapy- induced mwagwtculk78/24/2024 Assessment & Plan (10/17/2024 11:09 AM EDT): Symptoms resolved and monitor. Assessment & Plan (01/17/2024 11:03 AM EST): Continued pain and try lyrica. Use norco PRN. Assessment & Plan (12/29/2023 2:25 PM EDT): Worsening pain and discussed options. Suggested trial of lyrica but patient declined. Chronic obstructive pulmonary pweujpb9010/20/2023 Assessment & Plan (10/17/2024 11:09 AM EDT): [...] EDT): Worsening anxiety and use valium PRN. Kfkcxkfk10/07/2024 Assessment & Plan (10/12/2023 12:32 PM EDT): [...] follow up with oncology as scheduled. Primary pxbneacm95/29/2024 Assessment & Plan (10/17/2024 11:10 AM EDT): Not sleeping well and try doxepin. Assessment & Plan (12/29/2023 2:26 PM EDT): Sleeping well with trazodone and continue. Left-sided /23/2024DD (degenerative disc disease), pktmceys65/14/2024 Assessment & Plan (04/20/2023 12:12 PM EST): Pain stable and use norco PRN. Increase activity and walk regularly. Benign prostatic hyperplasia with lower urinary tract uuuziwzl00/11/2023 Assessment & Plan (04/20/2023 12:12 PM EST): Occasional symptoms but tolerable and continue terazosin. H/O malignant neoplasm of skin12/15/2022egenerative lumbar spinal stenosis 12/15/2022 Assessment & Plan (04/20/2023 12:12 PM EST): Pain stable and use norco PRN. Increase activity and walk regularly. 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 Increase ambulation. Assessment & Plan (12/29/2023 2:26 PM EDT): Worsening claudication and contact oncology about resuming plavix. Increase ambulation. Assessment & Plan (04/20/2023 12:13 PM EST): Symptoms stable and follow up with vascular. Lkehidsutzf91/19/2021ilateral carotid artery jjqdwkav80/23/2021Family history of lung ttuhqy8608/01/2019Erectile mhpasclgfsu26/01/2019Rotator cuff arthropathy of right lmopqwzg95/01/2019Postviral fatigue /13/2019Headache disorder 05/25/2018Mixed qjpsdcdjoqviri10/31/2017Low tlyqpqmantbb22/31/2017Seasonal allergic rhinitis due to trwfin1204/29/20168084Ewnoggxi31/23/2017Chronic fatigue hbudbrvm54/23/2017History of gastrointestinal hpgpqmu3004/29/2016Hypothyroidism, postradioiodine fmcbdgh1504/29/2016 Assessment & Plan (04/20/2023 12:13 PM EST): Medication adjusted and repeat labs next month. Impingement syndrome of left shoulder lzhpdo1604/29/2016Mixed conductive and sensorineural hearing loss04/29/2016Myringotomy tube qsztar3804/29/2016 Trochanteric bursitis of right hip04/29/2016 Assessment & Plan (10/17/2024 11:10 AM EDT): Pain unchanged follow with ortho. Assessment & Plan (07/25/2023 10:49 AM EDT): Pain unchanged and refer to ortho for possible injection. Finish prednisone. Use ice PRN. Handout with ROM exercises to patient. Hx of fusion of cervical spine02/16/2012Essential symahikbmxmj17/19/2011 Assessment & Plan (10/17/2024 11:09 AM EDT): BP controlled and monitor PRN. Assessment & Plan (01/17/2024 11:03 AM EST): BP controlled and monitor PRN. Assessment & Plan (04/20/2023 12:13 PM EST): BP controlled and monitor PRN. Resolved Problems ProblemNoted DateDiagnosed DateResolved DateAcute bronchitis due to other specified ylfhykqzk68/09/2023 Assessment & Plan (05/02/2023 11:30 AM EST): [...] re-evaluation. H/O TIA (transient ischemic attack) and bzvjdh74Inflammation of joint of left shoulder fvrwtz04Not currently working due to disabled angtcj57Other specified postprocedural states Lower urinary tract symptoms due to benign prostatic fqjssfxaehk74Hyperglycemiaifficulty nrsgmgvq60ight internal carotid bkxztjeid27 Skin sensation wulvrsepfbi59isorder of cqzyvdm2506/13/2020 04/20/2023Lumbago with sciatica, unspecified sideifficulty rjmfwsk99isplacement of lumbar intervertebral disc without jqxqmocskp40Intervertebral disc disorder of lumbar region with wranqbnbbk89onstipation/01/2024Otorrhea of left eardult BMI 30.0-30.9 kg/sq m0Temporal bcrjkuounojii60Infectious colitis, enteritis and urztlzcpksgdese01Tinnitus of left ear Family history of prostate otodcj36taxia Cdokiikibfl69External bhviqxpqtjd41History of stroke without residual epglgjet49Unemployed04/29/2016 04/20/2023Impairment of pxvhbvv26hronic pain syndrome igarette gewyxb85Hyporeflexia02/16/2012 04/20/2023 Overview (09/13/2022): At [facility] Umfzmyynzboqes80 Encounters DateTypeDepartmentCare CurxKggrbdbtmox63/16/2025 10:00 AM EDTAncillary Procedure [facility] [address] [place] [id number] Trochanteric bursitis, right hip11/20/2024Travelfrom Last 3 Months Immunizations ImmunizationAdministration DatesNext DuePneumococcal Conjugate PCV 13008/04/2016 Pneumococcal Polysaccharide KEJP0108,12/16/2014Zoster, Recombinant 11/20/2018,07/02/2018 Family History Medical HistoryRelationNameCommentsHeart diseaseFatherHypertensionFatherProstate [...] relatives?Once a week04/19/2023How often do you attend baptism or mormon services?More than 4 times per year04/19/2023o you belong to any clubs or organizations such as baptism groups, unions, fraternal or athletic elizabeth ups, or school groups?Patient dorizqxj87/13/2024How often do you attend meetings of the clubs or organizations you belong to?Patient khnpeisz33/13/2024re you , , , , never , or living with a partner? Rbalsgc2604/19/2023UDIT-CAnswerDate RecordedQ1: How often do you have a [...] hard at all04/19/2023HQ-2AnswerDate RecordedPatient Health Questionnaire-2 Score0 04/18/2024Fin[facility] - Occupational Stress QuestionnaireAnswerDate RecordedDo you feel stress - tense, restless, nervous, or anxious, or unable to sleep at night because yourmind is troubled all the time - these days?Patient prwuqlod65/13/2024Exercise Vital SignAnswerDate RecordedOn average, how many days [...] steady place to sleep or slept in [place] (including now)?No 04/19/2023Sex and Gender InformationValueDate RecordedSex Assigned at BirthNot on fileLegal PxtHylx2405/19/2022 7:20 PM EDTGender IdentityNot on fileSexual OrientationNot on file Last Filed Vital Signs Vital SignReadingTime TakenCommentsBlood Kctqraeq856/6808 10:30 AM EDT Qiixx963910/17/2024 10:30 AM CUWLucrfyitiet30.6 ??C (97.8 ??F)10/17/2024 10:30 AM EDTRespiratory Mpwf010910/17/2024 10:30 AM EDTOxygen Zvytnfgyux32%10/17/2024 10:30 AM EDTInhaled Oxygen Concentration--Gnjeza07.3 kg (177 lb)10/17/2024 10:30 AM SRNWprzhi088.6 cm (5' 6 )10/17/2024 10:30 AM EDTBody Mass Index28.57010/17/2024 10:30 AM EDT Plan of Treatment DateTypeDepartmentCare Team (Latest Contact Info)Mtkivpeecuy80/21/2026 3:15 PM EDTOffice Visit [facility] [address] [place] [phone] Ada Claudio MD [address] [place] [address] Health MaintenanceDue DateLast DoneCommentsCT Imuzopufhjfd96/29/1956FIT-DNA 1955FIT1955FOBT1955 8684Dvtcpzeaxpzyh35/29/1956OVID-19 Vaccine ( season)/, 06/02/2020, 05/02/2020Influenza Vaccine (#1)11/05/20246927Zsajakgxqrm93Colorectal Cancer Screening 10/02/2025Pneumococcal Vaccine: 65+ IajspKqvmqjfon25/11/2023, 08/04/2016, 12/16/2014 Procedures Procedure NamePriorityDate/TimeAssociated DiagnosisCommentsMR HIP RIGHT WO IV ZZEDEICOBcfshto75/16/2025 11:24 AM EDT Trochanteric bursitis, right hip TWDGCOGXGJELwfnwsw56/29/2016 12:00 PM EDT from Last 3 Months [...] No joint effusion. LEFT HIP JOINT: Large dqxdw-se-wegm with degenerative changes. ? SI JOINTS: Unremarkable. [...] No joint effusion. LEFT HIP JOINT: Large hwzei-nu-sxpq with degenerative changes. SI JOINTS: Unremarkable. PUBIC [...] Canas MDIMJosh MRI PROCEDURES Final Result * Colonoscopy (10/03/2015 12:00 PM EDT)Anatomical RegionLateralityModality EndoscopySpecimen (Source)Anatomical Location / LateralityCollection Method / VolumeCollection TimeReceived Time10/03/2015 12:00 PM EDT Narrative 10/03/2015 12:00 PM EDT PERFORMED AT [facility] LOCATION:[id number] Abnormal Procedure Note CONVERSION, GENERIC - 07/22/2022 PERFORMED AT [facility] LOCATION:[id number] Abnormal Authorizing ProviderResult TypeResult StatusJonathan F DillerENDOSCOPY PROCEDURE ORDERABLESFinal Result from Last 3 Months or Most Recently Relevant to Health Maintenance Insurance Advance Directives TypeDate RecordedPatient RepresentativeExplanationAdvance Directives and Living Will living will-healthcare [facility] Care Teams Team MemberRelationshipSpecialtyStart DateEnd Date Dcik Boss MD PCP - GeneralFamily Medicine04/20/23
--- OUTSIDE RECORDS SUMMARY | 2025-01-28 10:47 | XMS_ITS | Clinical Summary ---
Author Organization [facility] Address [address] [place] [address] Phone Care Team Providers Care Mine Laborer Name Role Phone Mikhail Vega MD Primary Care Provider + Social History Tobacco UseTypesPacks/DayYears UsedDateSmoking Tobacco: Never AssessedSex and Gender InformationValueDate RecordedSex Assigned at BirthNot on fileLegal Sex Male01/29/2022 11:51 AM ESTGender IdentityNot on fileSexual OrientationNot on file Last Filed Vital Signs Vital SignReadingTime TakenCommentsBlood Uyvsmbye162/8403 11:27 AM EDT Bzpkd4482 11:27 AM EDTTemperature--Respiratory Pwri5177 11:27 AM EDTOxygen Gtgqwvnems55%05/16/2019 11:27 AM EDTInhaled Oxygen Concentration-- Ewwhnh41.1 kg (185 lb 6.2 oz)05/16/2019 11:27 AM ESWBiuady319.6 cm (5' 6 ) 05/16/2019 11:27 AM EDTBody Mass Index29.9203 11:27 AM EDT Plan of Treatment Not on file Care Teams Team MemberRelationshipSpecialtyStart DateEnd Date Mikhail Vega MD [address] [place] [address] PCP - Xepsecj12/12/15
--- OUTSIDE RECORDS SUMMARY | 2025-01-28 10:47 | XMS_ITS ---
Author Organization [facility] Address [address] [place] [address] Care Team Providers Care Cloth Bleaching Range Tender Name Role Phone Dick Boss MD Primary Care Provider Preston Lucio MD Unavailable Gerald Dumont MD Unavailable Kathy Ruiz MD Unavailable [phone] Preston Luico MD Unavailable [phone] Michelle Galvez SOCIAL SERVICE MANAGER.SCHEDULING AGENT Unavailable Noemy Chicas RN Unavailable [phone] Steffany Damian Unavailable Unavailable Valorie Fernandez SOCIAL SERVICE MANAGER.SCHEDULING AGENT Unavailable + Anna Rasmussen RN Unavailable Unavail able Active Problems ProblemNoted DateDiagnosed KbvePfnvphtoxysij19/02/2024Mixed hyperlipidemia 10/26/2023 Assessment & Plan (10/26/2023 2:40 PM EDT): Assessment: Controlled with statin. Monitored per PCP. Chronic pain ktmyubdi26/21/2024 Assessment & Plan (10/26/2023 2:56 PM EDT): Assessment: Managed with hydrocodone, takes 1-2 per day. Ahipptqmgpy73/21/2024 Assessment & Plan (10/26/2023 2:59 PM EDT): Assessment: On metformin History of qrhikgmqjk61/21/2024 Assessment & Plan (10/26/2023 3:11 PM EDT): Assessment: CSF leak Malignant neoplasm of upper lobe of left lung10/23/2023 Cancer Staging: Clinical stage from 10/21/2023:Stage IIB(cT3, cN0, cM0) - Unsigned Chronic obstructive pulmonary yvlotwz0110/20/2023 Assessment & Plan (10/26/2023 2:34 PM EDT): [...] Benign prostatic hyperplasia with lower urinary tract grfmnkuc19/11/2023 Overview (10/26/2023): Last Assessment & Plan: Occasional symptoms but tolerable and continue terazosin. Right internal carotid gvtvavlxs83/12/2022PAD (peripheral artery disease) 05/04/2021 Overview (10/26/2023): Last Assessment & Plan: Symptoms stable and follow up with vascular. Assessment & Plan (10/26/2023 2:54 PM EDT): Assessment: Known blockage - on baby ASA - following with vascular surgery Hypothyroidism, postradioiodine ypjwvhv2004/29/2016 Overview (10/26/2023): Last Assessment & Plan: Medication adjusted and repeat labs next month. Assessment & Plan (10/26/2023 2:35 PM EDT): Assessment: Stable on Levothyroxine (Synthroid) Cigarette iprfqe4904/14/2016 Assessment & Plan (10/26/2023 2:35 PM EDT): Assessment: Recently quit - 4 weeks ago (09/2023) using nicotine patches Other affections of shoulder region, not elsewhere ifhfuzqnvl02/08/2013 Xvvgkygjxxcq99/12/2012 Overview (02/16/2012): At knees Hx of fusion of cervical spine02/16/2012Essential ihddnymzxxgc79/19/2011 Overview (10/26/2023): Last Assessment & Plan: BP [...] Q28//02/2025* nivolumab iv infusion (OPDIVO) Patient PreferenceAbPreston rbui MD3 of 6 cycles startedAMB NIVOLUMAB 360 PACLITAXEL 200 CARBOPLATIN 6 D1 - Q21D//07/2024* CARBOplatin iv piggyback (PARAPLATIN) * fosaprepitant (EMEND) * nivolumab iv infusion (OPDIVO) * PACLitaxel iv piggyback in 500 mL (TAXOL) * palonosetron (ALOXI) Treatment CompleteAbPreston rubi MD3 of 3 cycles started
--- OUTSIDE RECORDS SUMMARY | 2025-01-28 10:47 | XMS_ITS | Encounter Summary ---
Author Organization [facility] Address [address] [place] [id number] Care Team Providers Care Dean Of Admissions Name Role Phone Dick Boss MD Primary Care Provider [phone] Preston Lucio MD Unavailable [phone] Gerald Dumont MD Unavailable Kathy Ruiz MD Unavailable [phone] Preston Lucio MD Unavailable [phone] Michelle Galvez FLAKEBOARD LINE TENDER.CYBER SYSTEMS ENGINEER Unavailable [phone] Noemy Chicas RN Unavailable [phone] Steffany Damian Unavailable Unavailable Valorie Fernandez FLAKEBOARD LINE TENDER.CYBER SYSTEMS ENGINEER Unavailable + Anna Rasmussen RN Unavailable Unavail able Source Comments In the event this information is protected by the Federal Confidentiality of Alcohol and Drug AbusePatient Records regulations: The Federal rules restrict any use of the information to criminally investigate or prosecute any alcohol or drug abuse patient.[facility] Reason for Visit * ReasonCommentsRefill Request Encounter Details DateTypeDepartmentCare Team (Latest Contact Info)Vaqcivvdviy89/09/2025Refill Hematology/Oncology [address] [place] [address] Tianna King PA-C [address] [place] [address] Refill Request Social History Tobacco UseTypesPacks/DayYears UsedDateSmoking Tobacco: FormerCigarettes0.550 09/22/1973 - 4Passive Smoke Exposure: CurrentSmokeless Tobacco: Never Comments:Quit September 26 Alcohol UseStandard Drinks/WeekCommentsNo0 (1 standard drink = 0.6 oz pure alcohol)PHQ-2AnswerDate RecordedPHQ-2 [id number] Deprivation Index AnswerDate RecordedNational Score (1-100), lower number is lower risk75 10/21/2023State Score (1-10), lower number is lower [id number] from: https://www.neighborhoodatlas.[facility]/. Last address used for [place] [id number] and Gender InformationValueDate RecordedSex Assigned at BirthNot on fileLegal GjpKiju30/02/2012 10:16 AM EST Gender IdentityNot on fileSexual OrientationNot on filedocumented as of this encounter Functional Status * Are you deaf or do you have serious difficulty hearing?AnswerDate of RrefjjcztwNedpnrOv14/23/2015 11:07 AM Liliya Hatch MA * Are you blind or do you have serious difficulty seeing, even when wearing glasses?AnswerDate of MxbtviadpyLqrwmqIp58/23/2015 11:07 AM Liliya Hatch MA * Do you have serious difficulty walking or climbing stairs?AnswerDate of FyhgohowbnOxpcttDc31/23/2015 11:07 AM Liliya Hatch MA * Do you have difficulty dressing or bathing?AnswerDate of AssessmentAuthorNo 08/27/2014 11:07 AM Liliya Hatch MA * Because of a physical, mental, or emotional condition, do you have difficulty doing errands alone such as visiting a doctor's office or shopping?AnswerDate of SccwklsobmYmnpeiFy57/23/2015 11:07 AM Liliya Hatch MA documented as of this encounter Mental Status * Because of a physical, mental, or emotional condition, do you have serious difficulty concentrating, remembering, or making decisions?AnswerEntry Date YhwwcnMu29/23/2015 11:07 AM Liliya Hatch MA documented in this encounter Plan of Treatment DateTypeDepartmentCare Team (Latest Contact Info)Blisiporiev99/29/2025 8:00 AM ESTAppointment Radiology Pet CT [address] [place] [address] PET03/11/2025 2:00 PM ESTVisit (SP) Office Hematology/Oncology [address] [place] [address] [place] [address] Preston Lucio MD [address] [place] [address] [place] [address] FOLLOW UP AFTER PET SCANdocumented as of this encounter Visit Diagnoses Diagnosis 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 Malignant neoplasm of unspecified part of unspecified bronchus or lung (HCC) Neuralgia Neuralgia, neuritis, and radiculitis, unspecified documented in this encounter Care Teams Team MemberRelationshipSpecialtyStart DateEnd Date Dick Boss MD [address] [place] [address] PCP - GeneralFamily Medicine10/21/23 Preston Lucio MD [address] [place] [address] [place] [address] Hematology/Oncology11/04/23 Gerald Dumont MD [address] [place] [address] [place] [address] Hematology/Oncology11/04/23 Kathy Ruiz MD [address] [place] [address] 11/04/23 Preston Lucio MD [address] [place] [address] [place] [address] PhysicianHematology/Oncology11/14/23 Michelle Galvez, FLAKEBOARD LINE TENDER.CYBER SYSTEMS ENGINEER [address] [place] [address] Nurse PractitionerHematology/Oncology11/14/23 Noemy Chicas, EWELINA [address] [place] [address] Specialty Care CoordinatorHematology/Oncology11/14/23 Steffany Damian LSW Social Worker11/16/23 Valorie Fernandez, FLAKEBOARD LINE TENDER.CYBER SYSTEMS ENGINEER [address] [place] [id number] Hospice & Palliative Cmgbafdz28/22/24 Anna Rasmussen RN Specialty Care CoordinatorHospice & Palliative Uzogvegg92/22/24documented as of this encounter
--- OUTSIDE RECORDS SUMMARY | 2025-01-28 10:47 | XMS_ITS | Clinical Summary ---
Author Organization [facility] Address [address] [place] [address] Care Team Providers Care Race Engine Builder Name Role Phone Dick Boss MD Primary Care Provider Preston Lucio MD Unavailable [phone] Gerald Dumont MD Unavailable Kathy Ruiz MD Unavailable [phone] Preston Lucio MD Unavailable Michelle Galvez COREMAKER.POULTRY CLEANER Unavailable Noemy Chicas RN Unavailable Steffany Damian Unavailable Unavailable Valorie Fernandez COREMAKER.POULTRY CLEANER Unavailable + Anna Rasmussen RN Unavailable Unavail able Allergies Active AllergyReactionsCriticalityNoted DateCommentsGabapentinIntolerance 02/08/2024 Causes Altered mental Status Sulfa (Sulfonamide Antibiotics)JugbnhuPuiy72/10/2012 Unkown, was a child Medications MedicationSigDispense QuantityRefillsLast [...] 30 tablet Discontinued Active Problems ProblemNoted DateDiagnosed XvenQsjeymxkblhii92/02/2024Mixed hyperlipidemia 10/26/2023 Assessment & Plan (10/26/2023 2:40 PM EDT): Assessment: Controlled with statin. Monitored per PCP. Chronic pain hnedjgiv59/21/2024 Assessment & Plan (10/26/2023 2:56 PM EDT): Assessment: Managed with hydrocodone, takes 1-2 per day. Ggvuzvprzgb02/21/2024 Assessment & Plan (10/26/2023 2:59 PM EDT): Assessment: On metformin History of zueanljrdr32/21/2024 Assessment & Plan (10/26/2023 3:11 PM EDT): Assessment: CSF leak Malignant neoplasm of upper lobe of left lung10/23/2023 Cancer Staging: Clinical stage from 10/21/2023:Stage IIB(cT3, cN0, cM0) - Unsigned Chronic obstructive pulmonary sdyjrxv9910/20/2023 Assessment & Plan (10/26/2023 2:34 PM EDT): [...] tolerable and continue terazosin. Right internal carotid yeppggeeu82/12/2022AD (peripheral artery disease) 05/04/2021 Overview (10/26/2023): Last Assessment & Plan: Symptoms stable and follow up with vascular. 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 Assessment & Plan (10/26/2023 2:35 PM EDT): Assessment: Stable on Levothyroxine (Synthroid) Cigarette xslnza3904/14/2016 Assessment & Plan (10/26/2023 2:35 PM EDT): Assessment: Recently quit - 4 weeks ago (09/2023) using nicotine patches Other affections of shoulder region, not elsewhere nilmdlpdcw12/08/2013 Kmqytleyxchd22/12/2012 Overview (02/16/2012): At knees Hx of fusion of cervical spine02/16/2012Essential rbefzxryioew43/19/2011 Overview (10/26/2023): Last Assessment & Plan: BP controlled and monitor PRN. Assessment & Plan (10/26/2023 2:40 PM EDT): Assessment: Stable and compliant with medications Followed by PCP Last 5 Encounter BP Readings: Date: BP: 10/26/2023 136/74 10/21/2023 136/72 02/16/2012 147/76 10/15/2011 144/80 Encounters DateTypeDepartmentCare EivuJqhtyauhdys97/09/2025Refill Hematology/Oncology [address] [place] [address] [place] [address] Tianna King PA-C Refill Hbjgnwq2112/17/2024Telephone Hematology/Oncology [address] [place] [address] [place] [address] Noemy Chicas, RN Care Coordination (Lung Pain)12/07/2024 2:00 PM EDTVisit (SP) Office Hematology/Oncology [address] [place] [address] [place] [address] Elizabeth Givens APRN.POULTRY CLEANER Malignant neoplasm of unspecified part of unspecified bronchus or lung (HCC) (Primary Dx); Radiation-induced pulmonary fibrosis (HCC); Radiation induced neuropathy (HCC); Malaise and fatigue; Malignant neoplasm of lower lobe, left bronchus or lung (HCC); skilled nursing (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; Hyperglycemia; Tbgticqpxii21/26/2025 8:30 AM EDTOffice Visit Palliative Medicine [address] [place] [address] [place] [address] Valorie Fernandez APRN.POULTRY CLEANER Palliative care by specialist (Primary Dx); Radiation-induced pulmonary fibrosis (HCC); Malignant neoplasm of unspecified part of unspecified bronchus or lung (HCC); Neuralgia; Neuropathy due to chemotherapeutic drug (HCC); 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 condition; skilled nursing (current) use of systemic sngjyvhz57/26/7724Xbaght49/19/2025 1:30 PM EDTVisit (SP) Office Hematology/Oncology [address] [place] [address] [place] [address] Elizabeth Givens APRN.POULTRY CLEANER Radiation-induced pulmonary fibrosis (HCC) (Primary Dx); Malignant neoplasm of unspecified part of unspecified bronchus or lung (HCC); Pleural effusion, not elsewhere classified; Shortness of breath; Malaise and fatigue; Radiation induced neuropathy (HCC); skilled nursing (current) use of systemic qcoqfumv07/19/5716Dodoyx90/12/2025 11:00 AM EDTOffice Visit Radiation Oncology [address] [place] [address] [place] [address] Jack Kc MD Malignant neoplasm of upper lobe of left lung (HCC) (Primary Dx)11/09/2024 11:45 AM EDTVisit (SP) Office Hematology/Oncology [address] [place] [address] [place] [address] Preston Lucio MD Radiation-induced pulmonary fibrosis (HCC) [...] Pet CT [address] [place] [address] Malignant neoplasm of unspecified part of unspecified bronchus or lung (HCC) [C34.90] Discharge Disposition: Home11/09/2024Telephone Cancer Appts [address] [place] [address] Preston Lucio MD Vkfwwpc4111/09/20243045Uuyjpg74/02/2025Telephone Hematology/Oncology [address] [place] [address] [place] [address] Noemy Chicas, RN Care Coordination (Lung Pain)10/30/2024Telephone Hematology/Oncology [address] [place] [address] [place] [address] Noemy Chicas, RN Care Coordination (Discharge Follow Up Call )10/29/2024H&P External-NonCCF Provider, External, PA-C 10/29/2024Telephone Hematology/Oncology [address] [place] [address] [place] [address] Noemy Chicas, RN Care Coordination (Hospital Admission)from Last 3 Months Immunizations ImmunizationAdministration DatesNext Duepneumococcal [...] drink = 0.6 oz pure alcohol)PHQ-2AnswerDate RecordedPHQ-2 befsa9225Area Deprivation Index AnswerDate RecordedNational Score (1-100), lower number is lower risk75 10/21/2023State Score (1-10), lower number is lower puwl10710/21/2023ata from: https://www.neighborhoodatlas.[facility].edu/. Last address used for [address] [place] [address]10/21/2023Sex and Gender InformationValueDate RecordedSex Assigned at BirthNot on fileLegal QgcPrta35/02/2012 10:16 AM EST Gender IdentityNot on fileSexual OrientationNot on file Last Filed Vital Signs Vital SignReadingTime TakenCommentsBlood Ymhmiegg123/7410 2:07 PM EDT Lmygc666912/07/2024 2:07 PM UOSShddngozvzq40.5 ??C (97.7 ??F)12/07/2024 2:07 PM EDTRespiratory Bjsj7279 2:07 PM EDTOxygen Wijeqrjpbt26%12/07/2024 2:07 PM EDTInhaled Oxygen Concentration--Hgozhy23 kg (191 lb 12.8 oz)12/07/2024 2:07 PM DWZPhdcuu151.5 cm (5' 5.55 )12/07/2024 2:07 PM EDTBody Mass Index31.38 12/07/2024 2:07 PM EDT Plan of Treatment DateTypeDepartmentCare Team (Latest Contact Info)Cfcdnjnjlci45/29/2025 8:00 AM ESTAppointment Radiology Pet CT [address] [place] [address] PET03/11/2025 2:00 PM ESTVisit (SP) Office Hematology/Oncology [address] [place] [address] Preston Lucio MD [address] [place] [address] FOLLOW UP AFTER PET SCANHealth MaintenanceDue DateLast DoneCommentsAnnual PCP Team Chronic Disease Visit12/03/1973Depression Huangahtb64/29/1974Hepatitis C Sivlatmhs33/29/1974DTaP,Tdap,Td Vaccine (1 - Tdap)12/03/1974CT Colonography 12/03/2000Cologuard (FIT-DNA)12/03/2000Fecal Occult Blood12/03/2000Sigmoidoscopy 12/03/2000RSV Vaccine (1 - Risk 60-74 years 1-dose series)2015Colonoscopy Colorectal Cancer Uoqdsmjrx14/29/2017Advance Directive Xmuoptlaah54/01/2025Medicare Advantage Annual Wellness Visit03/07/2024ovid-19 Vaccine ( season)/, 06/02/2020, 05/02/2020 Influenza Vaccine (#1)2024Diabetes Lrrkjtuud47/03/440926/05/2024, 11/23/2024, 11/09/2024, Additional history existsLipid Xcclurjsb23/24/2029 09/28/2023Shingrix XgnualcZifxbvhti33/16/2019, 07/02/2018Pneumococcal Vaccine: 50+Nmufrdmcv69/11/2023, 08/04/2016, 12/16/2014bdominal Aortic Aneurysm IhpeiqppxKqbovcpkt44/23/2024 Procedures Procedure NamePriorityDate/TimeAssociated DiagnosisCommentsTSH BLDRoutine 12/07/2024 1:40 PM EDT Malignant neoplasm of upper lobe of left lung (HCC) Abnormal blood chemistry Malaise and fatigue CORTISOL JEAEwnfpua63/03/2025 1:40 PM EDT Malignant neoplasm of upper lobe of left lung (HCC) Abnormal blood chemistry Malaise and fatigue CBC + VHKOKhbydbd47/03/2025 1:40 PM EDT Malignant neoplasm of upper lobe of left lung (HCC) Abnormal blood chemistry Malaise and fatigue COMPREHENSIVE METABOLIC MCAQNEkaaiov11/03/2025 1:40 PM EDT Malignant neoplasm of upper lobe of left lung (HCC) Abnormal blood chemistry Malaise and fatigue CBC + GMZVMwnhnyg42/19/2025 3:29 PM EDT Radiation-induced pulmonary fibrosis (HCC) COMPREHENSIVE METABOLIC QXOFTMqfejsg54/19/2025 3:10 PM EDT Malignant neoplasm of upper lobe of left lung (HCC) Abnormal blood chemistry Malaise and fatigue TSH UVNVoaxazq26/19/2025 3:03 PM EDT Malignant neoplasm of upper lobe of left lung (HCC) Abnormal blood chemistry Malaise and fatigue CORTISOL KSKViunlje34/19/2025 3:03 PM EDT Malignant neoplasm of upper lobe of left lung (HCC) Abnormal blood chemistry Malaise and fatigue CBC + UJXAUroagsq70/19/2025 2:33 PM EDT Malignant neoplasm of upper lobe of left lung (HCC) Abnormal blood chemistry Malaise and fatigue NM PET/CT SKULL-THIGH DWYRZXBZUKUjxeqtw97/05/2025 12:10 PM EDT Malignant neoplasm of unspecified part of unspecified bronchus or lung (HCC) GLUCOSE, BLOOD (POC)Nzaayoi0011/09/2024 10:03 AM EDT COMPREHENSIVE METABOLIC XQLEQTjozmya71/05/2025 9:56 AM EDT Malignant neoplasm of unspecified part of unspecified bronchus or lung (HCC) CBC + DRBMZavmcrx62/05/2025 9:56 AM EDT Malignant neoplasm of unspecified part of unspecified bronchus or lung (HCC) HEMOGLOBIN R3NZuehcnq30/05/2025 9:56 AM EDT Malignant neoplasm of unspecified part of unspecified bronchus or lung (HCC) Immunotherapy Abnormal blood chemistry CORTISOL IIKAvtwzck73/05/2025 9:56 AM EDT Malignant neoplasm of unspecified part of unspecified bronchus or lung (HCC) Immunotherapy Malaise and fatigue Abnormal blood chemistry TSH GFVQkgjifg00/05/2025 9:56 AM EDT Malignant neoplasm of unspecified part of unspecified bronchus or lung (HCC) Immunotherapy Malaise and fatigue EXTERNAL WZAHBUSQBN99/26/2025 9:22 AM EDT EXTERNAL LAB10/29/2024 9:01 AM EDT EXTERNAL PFGJDMK8810/29/2024 9:01 AM EDT EXTERNAL LAB10/29/2024 9:01 AM EDT EXTERNAL LAB10/29/2024 9:01 AM EDT EXTERNAL DQGFKTQPQK75/25/2025 9:01 AM EDT from Last 3 Months Results * THYROID STIMULATING HORMONE (12/07/2024 1:40 PM EDT) Only the most recent of3 resultswithin the time period is included. ComponentValueRef RangeTest MethodAnalysis TimePerformed AtPathologist Signature TSH0.8210.270 - 4.200 mIU/L1 6:21 AM [facility] LABSpecimen (Source)Anatomical Location / LateralityCollection Method / Volume Collection TimeReceived TimeBloodBLOOD SPECIMEN / UnknownVenipuncture / Unknown 12/07/2024 1:40 PM EDT1 1:41 PM EDT Narrative Authorizing ProviderResult TypeResult StatusCentrastate Healthcare Systemteagan Lucio MDLABORATORYFinal ResultPerforming OrganizationAddressty/State/ZIP CodePhone Number [facility] [address] [place] [address], * (ABNORMAL) CORTISOL, SERUM (12/07/2024 1:40 PM EDT) Only the most recent of3 resultswithin the time period is included. ComponentValueRef RangeTest MethodAnalysis TimePerformed AtPathologist Signature Cortisol1.4(L)4.8 - 19.5 ug/dL12/08/2024 6:21 AM [facility] LABComment: Provided reference range is from 6-10 AM sample collection time. Cortisol Reference Range: 6-10 AM = 4.8-19.5 ug/dL, 4-8 PM = 2.5-11.9 ug/dL Specimen (Source)Anatomical Location / LateralityCollection Method / Volume Collection TimeReceived TimeBloodBLOOD SPECIMEN / UnknownVenipuncture / Unknown 12/07/2024 1:40 PM EDT1 1:41 PM EDT Narrative Authorizing ProviderResult TypeResult CecileCentrastate Healthcare Systemteagan Lucio MDLABORATORYFinal ResultPerforming OrganizationAddressty/State/ZIP CodePhone Number [facility] [address] [place] [address], * (ABNORMAL) COMPREHENSIVE METABOLIC PANEL (12/07/2024 1:40 PM EDT) Only the most recent of3 resultswithin the time period is included. ComponentValueRef RangeTest MethodAnalysis TimePerformed AtPathologist Signature Protein, Total7.06.3 - 8.0 g/dL12/07/2024 2:28 PM EDTNORTVETERANS [facility] LABAlbumin4.73.9 - 4.9 g/dL12/07/2024 2:28 PM [facility] LABCalcium, Total9.88.5 - 10.2 mg/dL12/07/2024 2:28 PM EDT [facility] LABBilirubin, Total0.40.2 - 1.3 mg/dL 12/07/2024 2:28 PM [facility] LABAlkaline Phosphatase 6638 - 113 U/L1 2:28 PM [facility] URZCZX7992 - 40 U/L1 2:28 PM [facility] XWSKES2432 - 54 U/L1 2:28 PM [facility] OIPYmjcsvt203(H)74 - 99 mg/dL12/07/2024 2:28 PM [facility] LABComment: The [place] Diabetes Association (ADA) provides guidance for cutoff [...] Standards of Medical Care in Diabetes 2016, [place] Diabetes Association. Diabetes Care. 2016.39(Suppl 1). RAQ122 - 24 mg/dL12/07/2024 2:28 PM [facility] LAB Creatinine0.760.73 - 1.22 mg/dL12/07/2024 2:28 PM [facility] UQHAffepc050222 - 144 mmol/L1 2:28 PM EDTNORTVETERANS [facility] LABPotassium4.13.7 - 5.1 mmol/L1 2:28 PM [facility]TR[facility] ZZXJrouzcms75(L)98 - 107 mmol/L1 2:28 PM EDT [facility] VDEUH72983 - 30 mmol/L1 2:28 PM EDT [facility] LABAnion Psw634 - 15 mmol/L1 2:28 PM EDTNOCAMDEN [facility]ARK [facility] LABEstimated Glomerular Filtration Rate97 >=60 mL/min/1.73m 12/07/2024 2:28 PM EDTR[facility]WO[facility] LABComment:Estimated Glomerular Filtration Rate (eGFR) [...] VolumeCollection TimeReceived TimeBloodBLOOD SPECIMEN / UnknownVenipuncture / Iqoobvc2512/07/2024 1:40 PM EDT1 1:41 PM EDT Narrative Authorizing ProviderResult TypeResult StatusPreston Lucio MDLABORATORYFinal ResultPerforming OrganizationAddressCity/State/ZIP CodePhone Number [facility] [address] [place] [address] * (ABNORMAL) COMPLETE BLOOD COUNT AND DIFFERENTIAL (12/07/2024 1:40 PM EDT) Only the most recent of4 resultswithin the time period is included. ComponentValueRef RangeTest MethodAnalysis TimePerformed AtPathologist Signature WBC8.213.70 - 11.00 k/uL12/07/2024 1:54 PM EDTR[facility] LABRBC4.214.20 - 6.00 m/uL12/07/2024 1:54 PM EDTNORTHCO[facility] PEDAsyjwunkau35.6(L)13.0 - 17.0 g/dL12/07/2024 1:54 PM EDTNORTHCOAST [facility] LRNIsxrkjrqhr32.6(L)39.0 - 51.0 %12/07/2024 1:54 PM EDT [facility] QPMVDC44.380.0 - 100.0 fL12/07/2024 1:54 PM EDTNORTHCOAST [facility] FIIWYR60.926.0 - 34.0 pg12/07/2024 1:54 PM EDTNORTUN[facility] UGZIBKV26.530.5 - 36.0 g/dL12/07/2024 1:54 PM EDTNORTVETER[facility] LABRDW-CV16.4(H)11.5 - 15.0 %12/07/2024 1:54 PM EDTNOCAMDEN [facility] LABPlatelet Fylde709157 - 400 k/uL 12/07/2024 1:54 PM EDTNORTVETER[facility] LABMPV9.49.0 - 12.7 fL 12/07/2024 1:54 PM EDTNOCAM[facility] LABNeutrophils %83.0% 12/07/2024 1:54 PM EDTNORTVETER[facility] LABAbs Neut6.811.45 - 7.50 k/uL12/07/2024 1:54 PM EDTNORTUNIVERSITY [facility] LABLymphocytes %10.2%12/07/2024 1:54 PM EDTNORTVETER[facility] LABAbs Lymph0.84 (L)1.00 - 4.00 k/uL12/07/2024 1:54 PM EDTNORTUNIV[facility] LAB Monocytes %3.8%12/07/2024 1:54 PM EDTNORTVETER[facility] LABAbs Mono0.31<0.87 k/uL12/07/2024 1:54 PM EDTNORTUNIVERS[facility] LAB Eosinophils %0.6%12/07/2024 1:54 PM EDTNORTVETER[facility] LABAbs Eosin0.05<0.46 k/uL12/07/2024 1:54 PM EDTNORTUNIVERSITY [facility] LAB Basophils %0.5%12/07/2024 1:54 PM EDTNORTUN[facility] LABAbs Baso0.04<0.11 k/uL12/07/2024 1:54 PM EDTNORTVET[facility] LAB Immature Granulocytes %1.9%12/07/2024 1:54 PM EDTNORTVETER[facility] LABAbs Immature Gran0.16(H)<0.10 k/uL12/07/2024 1:54 PM EDTR[facility]WO[facility] LABNRBC0.0/100 WBC12/07/2024 1:54 PM EDTR[facility]WO[facility] LABAbsolute nRBC<0.01<0.01 k/uL12/07/2024 1:54 PM EDT [facility] LABDiff CptxAzcp49/03/2025 1:54 PM EDT [facility] LABSpecimen (Source)Anatomical Location / LateralityCollection Method / VolumeCollection TimeReceived TimeBloodBLOOD SPECIMEN / UnknownVenipuncture / Vxhvpsf8712/07/2024 1:40 PM EDT1 1:41 PM EDT Narrative Authorizing ProviderResult TypeResult StatusPreston Lucio MDLABORATORYFinal ResultPerforming OrganizationAddressCity/State/ZIP CodePhone Number [facility] [address] [place] [address] * NM PET/CT SKULL-THIGH SUBSEQUENT (11/09/2024 12:10 [...] * ??Uptake Time: 61 minutes * ??Radiopharmaceutical: G12-Blgcwhfsnabgchxxfl (FDG) COMPARISON: 08/03/2024 CORRELATION: 07/29/2024 [facility] neck CTA report RESULT: REFERENCES: FDG uptake [...] any questions regarding this interpretation, please call [phone]. If you are unable to reach us at the number above, please feel free to contact [facility] eRadiology at [phone]. Procedure Note Provider, [facility] [place] - 11/09/2024 * * *Final Report* * [...] * Uptake Time: 61 minutes * Radiopharmaceutical: O49-Zqlqcaxzkqpyckvinr (FDG) COMPARISON: 08/03/2024 CORRELATION: 07/29/2024 [facility] neck CTA report RESULT: REFERENCES: FDG uptake [...] any questions regarding this interpretation, please call [phone]. If you are unable to reach us at the number above, please feel free to contact [facility] eRadiology at [phone]. Authorizing ProviderResult TypeResult StatusViveteagan PAGE-PAMAFinal Result * (ABNORMAL) GLUCOSE, BLOOD (POC) (11/09/2024 10:03 AM EDT)ComponentValueRef RangeTest MethodAnalysis TimePerformed AtPathologist SignatureGlucose, Point of Dacz458(A)74 - 99 mg/dLSUniversity of Michigan HealthComment: Location:[facility], [address] [place] [address] , [place], [place], [address] The Accu-Chek Inform II glucose meter has [...] ProviderPOC TESTINGFinal Result Performing OrganizationAddressCity/State/ZIP CodePhone Number [facility] [address] [place], [place] * (ABNORMAL) HEMOGLOBIN A1C (11/09/2024 9:56 AM EDT)ComponentValueRef RangeTest MethodAnalysis TimePerformed AtPathologist SignatureHemoglobin A1C5.9(H)4.3 - 5.6 %11/09/2024 6:43 PM [facility] LABComment:[place] Diabetes Association guidelines indicate that patients with HgbA1c in the range 5.7-6.4% are at increased risk for development of diabetes, and intervention by lifestyle modification may be beneficial. HgbA1c greater or equal to 6.5% is considered diagnostic of diabetes.Estimated Average Glucose 123mg/dL11/09/2024 6:43 PM [facility] LABComment:eAG: (Estimated average glucose) is a calculated value from HgbA1c and is technical support representative of the average blood glucose level in the last 2-3 month period.Specimen (Source)Anatomical Location / LateralityCollection Method / VolumeCollection TimeReceived TimeBloodBLOOD SPECIMEN / UnknownVenipuncture / Aezxpwv1911/09/2024 9:56 AM EDT11/09/2024 10:08 AM EDT Narrative Authorizing ProviderResult TypeResult StatusPreston Lucio MDLABORATORYFinal ResultPerforming OrganizationAddressCity/State/ZIP CodePhone Number [facility] [address] [facility] [address] [place] [address], * EXTERNAL CARDIOLOGY (10/30/2024 9:22 AM EDT) [...] ProviderResult TypeResult StatusExternal Provider PA-CCARDIOLOGY Final Result from Last 3 Months Insurance Advance Directives TypeDate RecordedPatient RepresentativeExplanationAdvance Directive(s)11/16/2023 3:40 PMAdvance Directives- Health Carer Power of Trimmer And Borer Machine Operator and Living Will Care Teams Team MemberRelationshipSpecialtyStart DateEnd Date Dick Boss MD [address] [place] [address] PCP - GeneralFamily Medicine10/21/23 Preston Lucio MD [address] [place] [address] Hematology/Oncology11/04/23 Gerald Dumont MD [address] [facility] [facility] [place] [address] Hematology/Oncology11/04/23 Kathy Ruiz MD [address] [facility] [facility] [place] [address] 11/04/23 Preston Lucio MD [address] [facility] [facility] [place] [address] PhysicianHematology/Oncology11/14/23 Michelle Galvez, ROSA.POULTRY CLEANER [address] [place] [address] Nurse PractitionerHematology/Oncology11/14/23 Noemy Chicas, EWELINA [address] [facility] [place] [address] Specialty Care CoordinatorHematology/Oncology11/14/23 Steffany Damian LSW Social Worker11/16/23 Valorie Fernandez, COREMAKER.POULTRY CLEANER [address] [place] [phone] Hospice & Palliative Rhnygtrc26/22/24 Grady, Anna L, RN Specialty Care CoordinatorHospice & Palliative Hutunyos00/22/24
--- OUTSIDE RECORDS SUMMARY | 2025-01-28 10:47 | XMS_ITS | Clinical Summary ---
Author Organization [facility] Address [id number] [address] [place] [address] Care Team Providers Care Geodetic Survey Director Name Role Phone Dick Boss MD Primary Care Provider [phone] Allergies Active AllergyReactionsCriticalityNoted DateCommentsSulfa (Sulfonamide Antibiotics)07/17/2018 Medications [...] tablet 5Active Active Problems ProblemNoted DateDiagnosed DateMixed pzrbmxmrfisnne07/30/2024Malignant neoplasm of upper lobe of left lung12/09/2024Chemotherapy-induced /24/2024 Chronic obstructive pulmonary rgqljsv0610/20/2023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10/12/2023 Overview (04/18/2024): Last Assessment & Plan: Pathology showed cancer and follow up with oncology as scheduled. Left-sided nyvwzpyl63/23/2024enign prostatic hyperplasia with lower urinary tract becvpmed37/11/2023 Overview (04/18/2024): Last Assessment & Plan: Occasional symptoms but tolerable and continue terazosin. Ctusberwfwmp67/28/2022Occlusive disease, hboeorrx97/28/2022AD (peripheral artery disease)05/04/2021 Overview (04/18/2024): Last Assessment & Plan: Symptoms stable and follow up with vascular. Bilateral carotid artery abwdyrcm34/23/2021Temporal rewiyetdgpeyl44/16/2019 Fthqmjrwqvmrzx27/13/2019Postviral fatigue ujcjkiky23/13/2019Essential uiiqycxppwzm16/13/2019Infectious colitis, enteritis and gastroenteritis 07/17/2018Hypothyroidism, postradioiodine iysdlku4004/29/2016 Overview (04/18/2024): Last Assessment & Plan: Medication adjusted and repeat labs next month. Other affections of shoulder region, not elsewhere nhgaupffer58/08/2013 Knipkfqgxhdk91/12/2012 Overview (10/18/2019): At knees Hx of fusion of cervical spine02/16/2012 Resolved Problems ProblemNoted DateDiagnosed DateResolved DateLung massight internal carotid jlaqpbasq04Essential dfeisdrfplfd12/19/2011 03/05/20248256Jivisiypeofxeq46/19/201112/30/2024 Family History Medical HistoryRelationNameCommentsHeart diseaseFatherHypertensionFatherStroke MotherRelationNameStatusCommentsFatherDeceasedMotherDeceased Social [...] as a part of a household?No09/27/2023hildcareAnswer Date EdcyrkjzLhmfdbyrzUymdnql43/12/2019EmploymentAnswerDate RecordedEmployment Kqchjyr7308/16/2018Hunger ScreeningAnswerDate RecordedWithin the past 12 months we worried whether our food would run out before we got money to buy more.Never True09/26/2024Within the past 12 months the food we bought just didn't last and we didn't have money to get more.Never True09/26/2024Purpose - LifeAnswerDate RecordedPurpose and direction in waqfUcpxqdd03/11/2021ex and Gender Information ValueDate RecordedSex Assigned at BirthNot on fileLegal BoiLpnl5310/10/2014 11:24 AM EDTGender IdentityNot on fileSexual OrientationNot on file Last Filed Vital Signs Vital SignReadingTime TakenCommentsBlood Auadyygm023/6807 1:36 PM EDT Npimv5811 1:36 PM LSJUvavxewfrjr41.8 ??C (98.2 ??F)07/31/2024 4:02 PM EDTRespiratory Taib953107/31/2024 4:45 PM EDTOxygen Wnlsdfeywt28%09/26/2024 1:36 PM EDTInhaled Oxygen Concentration--Margrq48.8 kg (176 lb)09/26/2024 1:36 PM EDT Pjsfaz645.6 cm (5' 6 )09/26/2024 1:36 PM EDTBody Mass Index28.4107 1:36 PM EDT Plan of Treatment DateTypeDepartmentCare Team (Latest Contact Info)Mdpkgkgpjjs41/04/2025 8:30 AM ESTAppointment [facility] [address] [place] [id number] Bina Resendiz, DO [address] [place] [address] 02/11/2025 9:30 AM ESTOffice Visit [facility] [address] [place] [address] Faisal Taylor, [employer] [address] [place] [address] Health MaintenanceDue DateLast DoneCommentsStatin Use: Fufpzgxbwgjhia78/29/1956 Depression Yvjwwxirt67/29/1968Adult BMI Follow Up Plan12/03/1973DTaP,Tdap and Td Vaccines (1 - Tdap)12/03/1974RSV ( or age 60+ yrs) (1 - Risk 60-74 years 1-dose series)2015Abdominal Aortic Aneurysm (AAA) Jupypn0112/03/2020Fall Risk Wghzajsvy06/29/2021OVID-19 Vaccine ( season)2024 02/18/2021, 06/02/2020, 05/02/2020Influenza Cqtvhcl2811/05/2024dult BMI Screening Tobacco Qmmaidwto84Zoster (Shingles) UufymxjFnnsxspzn58/16/2019, 07/02/2018 Goals GoalPatient Goal TypeAssociated ProblemsRecent ProgressPatient-Stated?Author Home Faith Lowry MSW Note: Evaluation of progress towards goal: In progress: Would like to DC to home today, await further tests and consults prior to DC Medical Devices Not on file Insurance * Guarantor: Nate PenaAccount TypeRelation to PatientDate of PhoneBilling AddressPersonal/LjgjfkNpwc02/29/1956 [facility] [place] [address] Advance Directives * Full Code (Latest Code Status on File) Date ActivatedDate InactivatedComments09/27/2023 6:42 PM09/29/2023 6:35 PM Care Teams Team MemberRelationshipSpecialtyStart DateEnd Date Dick Boss MD PCP - GeneralFamily Medicine09/27/23
--- OUTSIDE RECORDS SUMMARY | 2025-01-28 10:47 | XMS_ITS | Clinical Summary ---
Author Organization [facility] Address [address], [address] [place] [address] Care Team Providers Care Bingo Checker Name Role Phone Mikhail Vega MD Primary Care Provider Unav ailable Social History Tobacco UseTypesPacks/DayYears UsedDateSmoking Tobacco: Never AssessedSex and Gender InformationValueDate RecordedSex Assigned at BirthNot on fileLegal Sex Male04/16/2012 11:30 AM ESTGender IdentityNot on fileSexual OrientationNot on file Plan of Treatment Not on file Care Teams Team MemberRelationshipSpecialtyStart DateEnd Date Mikhail Vega MD PCP - Mapphet61/26/12
[2025-01-28 11:17] VITALS: BP 153/77; PULSE 72; TEMP 36.7; O2SAT 97
[2025-01-28 12:01] VITALS: BP 153/67; BP 157/70; PULSE 76; PULSE 77; O2SAT 93; O2SAT 94
[2025-01-28] MEDS: LIDOCAINE HCL 2% 400 MG/20 ML MDV 15 ML INJ (12:09)
[2025-01-28] MEDS: DEXAMETHASONE SOD PHOS 10 MG/ML VIAL INJ (12:09)
[2025-01-28] MEDS: BUPIVACAINE HCL 0.25% PF 25 MG/10 ML VIAL 5 ML INJ (12:09)
[2025-01-28 12:11] VITALS: BP 161/77; PULSE 69; O2SAT 95
--- NOTE | 2025-01-28 12:16 | P.ON_ITS ---
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 The site was marked.? Written informed consent was obtained and placed on the chart.? The patient was brought to the medical procedure unit and placed in the prone position.? A timeout was completed verifying correct patient, procedure, positioning, and special requirements.? The skin overlying the target points, the designated intercostal nerve, was prepped and draped in the usual sterile fashion.? The target point was achieved with a 20-gauge 15 cm with a 10 mm curved active tip radiofrequency cannula under direct fluoroscopic visualiza tion.? The needle was inserted at the seventh rib on the left side.? Motor stimulation was carried out at 2 Hz up to 5 volts with the absence of extremity activity.? This was repeated at level T8, 9 on left side.?? Sensory stimulation was carried out.? Concordant pain was realized at the above- mentioned sites.? Then pulsed radiofrequency lesioning was carried out times 120 seconds at 40 degrees times 2 lesions at each level.? The radiofrequency probe was removed prior to cannula removal.? The above-mentioned injectate was placed in 1 mL increments.? The needle was removed.? Insertion sites were covered.? The patient was taken to the postoperative recovery area and monitored for an appropriate length of time before being found suitable for discharge in the company of a responsible adult. Anesthesia: Local Surgeon: Sariah William Pathology: none sent Condition: stable Disposition: no change
[2025-01-28 12:17] VITALS: BP 144/81; PULSE 70; O2SAT 97
== END 2025-01-28 12:30 | disposition home or self-care (01) ==
PROVIDERS: PCP Family Medicine; Visit Provider Anesthesiology
DX: G58.0 Intercostal neuropathy (principal); G89.29 Other chronic pain
CPT/HCPCS: 64640; J0665; J1100